=== PATIENT | male | born 1960 | race Caucasian/White ===

== ENCOUNTER → 2018-09-04 06:24 | Outpatient (CLI) | payer OTHER, SELFPAY ==
[2018-09-03 11:00] VITALS: BMI 31.6
--- NOTE | 2018-09-04 06:29 | ECHOCS_ITS ---
Reason For Study: NEAR SYNCOPE Procedure This was a 2D Doppler, Color Flow transthoracic echocardiogram. Exam performed in department. Left Ventricle Normal LV size. Left ventricular systolic function is normal. The estimated ejection fraction is 65 %. Stage 1 diastolic dysfunction. No regional wall motion abnormalities noted. Right Ventricle Normal RV size. Normal systolic function. Atria Normal left atrium. Normal right atrium. Mitral Valve Normal mitral valve. Tricuspid Valve Normal tricuspid valve. Mild tricuspid valve insufficiency. Aortic Valve Normal aortic valve. Pulmonic Valve Normal pulmonic valve. Great Vessels Normal aortic root. The pulmonary artery is normal size. Normal inferior vena cava. Pericardium/Pleural No pericardial effusion. Medication Diluted definity 5ml given slow IV push to enhance endocardial definition. MMode/2D Measurements & Calculations LVIDd: 4.7 cm IVSd: 0.95 cm Ao root diam: 3.6 cm LVIDs: 3.2 cm LVPWd: 0.99 cm RVDd: 4.0 cm FS: 32.2 % LAV(MOD-bp): 32.1 ml LVAd ap4: 28.5 cm2 SV(MOD-sp4): 64.0 ml LAV(MOD-bp) Indexed: 14.1 ml/m2 EDV(MOD-sp4): 97.8 ml LAV(MOD-sp2): 27.2 ml EDV(sp4-el): 97.7 ml LAV(MOD-sp4): 32.2 ml LVAs ap4: 16.0 cm2 ESV(MOD-sp4): 33.8 ml ESV(sp4-el): 36.1 ml EF(MOD-sp4): 65.5 % EF(sp4-el): 63.0 % SV(sp4-el): 61.6 ml LA A4 area: 14.2 cm2 LA dimension(2D): 3.4 cm RA A4 area: 16.0 cm2 Time Measurements MV dec time: 0.24 sec Doppler Measurements & Calculations MV E max martin: 52.5 cm/sec Lat Peak E' Martni: 6.0 cm/sec Med Peak E' Martin: 5.1 cm/sec MV A max martin: 67.4 cm/sec E/E' lat: 8.7 E/E' med: 10.3 MV E/A: 0.78 Ao V2 max: 114.7 cm/sec LV V1 max: 106.4 cm/sec PA V2 max: 103.4 cm/sec Ao max P.3 mmHg LV V1 max P.5 mmHg TR max martin: 207.9 cm/sec TR max P.3 mmHg Interpretation Summary Normal LV size. Left ventricular systolic function is normal. The estimated ejection fraction is 65 %. Stage 1 diastolic dysfunction. Contrast injection was performed. Ordering Physician: Jocelin Luo Referring Physician: Jocelin Luo Performed By: Natalia Swanson RDCS
--- NOTE | 2018-09-04 06:29 | CDU_ITS ---
Reason For Study: SYNCOPE Rt. Velocities/BP Lt. Velocities/BP Prox CCA 70.4/15.8 cm/sec. Prox CCA 83.8/20.5 cm/sec. Mid CCA 63.3/13.5 cm/sec. Mid CCA 63.9/22.3 cm/sec. Dist CCA 49.2/16.4 cm/sec. Dist CCA 50.4/15.2 cm/sec. Prox ICA 37.2/15.1 cm/sec. Prox ICA 51.9/23.3 cm/sec. Mid ICA 42.8/16.9 cm/sec. Mid ICA 53.8/21.4 cm/sec. Dist ICA 51.1/20.8 cm/sec. Dist ICA 54.8/22.9 cm/sec. Rt. ICA/CCA = .81. Lt. ICA/CCA = .86. Prox ECA 69.2/15.2 cm/sec. Prox ECA 66.3/12.9 cm/sec. Rt. Vert. 34.2/12.2 cm/sec. Lt. Vert. 45.7/17.6 cm/sec. Right Extracranial There is intimal thickening but no significant atherosclerotic plaque noted in the right common carotid artery. There is heterogeneous, irregular atherosclerotic plaque noted in the right internal carotid artery. There is no significant atherosclerotic plaque noted in the right external carotid artery. Antegrade flow is noted in the right vertebral artery. Left Extracranial There is intimal thickening but no significant atherosclerotic plaque noted in the left common carotid artery. There is intimal thickening but no significant atherosclerotic plaque noted in the left internal carotid artery. There is no significant atherosclerotic plaque noted in the left external carotid artery. Antegrade flow is noted in the left vertebral artery. Procedure Carotid Duplex 33288. Exam performed in department. Interpretation Summary Mild (<50%) stenosis right extracranial internal carotid. No significant atherosclerotic plaque or stenosis noted in the left internal carotid artery. Flow within the vertebral arteries is antegrade bilaterally. Ordering Physician: Jocelin Luo Referring Physician: Jocelin Luo Performed By: Jade Mclean RVT
--- NOTE | 2018-09-04 09:07 | STRESSREP ---
Stress Test Report Exercise myocardial perfusion stress test. 58-year-old man with a history of shortness of breath and preop evaluation. Stress protocol: Resting EKG demonstrates sinus rhythm with a rate of 71 bpm normal intervals are noted resting blood pressure 110/74 mmHg. The patient exercised according to regular Gallito protocol for total duration of 9 minutes the maximum heart rate attained was 151 bpm which was 93% of maximum predicted heart rate the maximum workload was 10.1 metabolic equivalents. Patient completed stage III of the Gallito protocol. At rest there were no ST or T wave changes noted suggest ischemia at peak exercise upsloping ST changes only were noted with no meet the criteria for ischemia. No clinical angina was noted. The test was terminated due to shortness of breath. The resting blood pressure 110/74 with a peak blood pressure 170/74. No clinical angina was noted rate pressure product was 25,100. Myocardial perfusion protocol. 15.1 mCi of technetium 99m sestamibi was injected at rest. The patient exercised according to regular Gallito protocol for total duration of 9 minutes at peak exercise 45.0 mCi of technetium 99m sestamibi was injected stress images were obtained stress and rest images were reconstructed and compared in the short axis vertical long horizontal long axis. Gated images were also obtained next Perfusion SPECT analysis: Review of the stress images demonstrate normal uptake of tracer noted in all areas of the myocardium. The resting images similarly demonstrate normal uptake of tracer noted in all areas of the myocardium. No areas of reversibility are noted suggest ischemia no previous infarct is discernible. Gated SPECT analysis: The gated ejection fraction is noted to be 63%. Conclusion: Normal exercise myocardial perfusion stress test at a high workload. Preserved ejection fraction. Excellent functional capacity.
== END ==
LOC: CVS 06:25
PROVIDERS: Family Provider Internal Medicine; PCP Internal Medicine; Referring Provider Internal Medicine; Visit Provider Internal Medicine
DX: R55 Syncope and collapse (principal); R06.02 Shortness of breath
CPT/HCPCS: 78452; 93017; 93306; 93880; A9500; Q9957; A4216; C8929

== ENCOUNTER → 2018-09-05 09:20 | Outpatient (CLI) | payer OTHER, SELFPAY ==
[2018-09-03 11:00] VITALS: BMI 31.6
--- NOTE | 2018-09-05 11:53 | EEG ---
- Electroencephalogram This is an 18 channel electroencephalogram performed utilizing the International 10-20 electrode placement protocol along with hyperventilation, photic stimulation and EKG reference leads on this 58-year-old male with a history of near syncope. Background activity is in the beta range symmetrically however this attenuates with eye-opening. Hyperventilation is performed for 2 minutes with good effort with no lateralizing or epileptiform changes. The patient did drowse during the recording without lateralizing or epileptiform changes. EKG remained normal sinus rhythm throughout the recording and photic stimulation generated a normal symmetric driving response in the posterior leads. Impression: Normal awake electroencephalogram.
== END ==
LOC: CT 09:21 → CVS 09:36
PROVIDERS: Family Provider Internal Medicine; PCP Internal Medicine; Referring Provider Internal Medicine; Visit Provider Internal Medicine
DX: R55 Syncope and collapse (principal)
CPT/HCPCS: 93225; 93226; 95819

== ENCOUNTER → 2018-09-09 16:52 | Outpatient (CLI) | payer OTHER, SELFPAY ==
[2018-09-03 11:00] VITALS: BMI 31.6
--- NOTE | 2018-09-09 16:58 | MRI_ITS ---
STUDY: MRI BRAIN WITH AND WITHOUT CONTRAST REASON FOR EXAM: Male, 58 years old. Near syncope TECHNIQUE: Standardized multiplanar fat and water weighted pulse sequences were obtained. Gadavist 10 IV was administered for the contrast portion of the examination. COMPARISON: None. FINDINGS: Normal size of the ventricles and extra-axial spaces for the patient's age. Normal white matter tracts of the supratentorial brain. Normal bilateral basal ganglia. Normal thalami. There is no extra-axial fluid accumulation. Normal flow voids within the major intracranial circulation suggesting patency by spin echo criteria. Normal venous enhancement. There is no enhancing intra-axial or extra-axial abnormality. Normal sella turcica, pituitary gland, infundibular stalk, optic chiasm and hypothalamus. Normal tectal plate and pineal gland. Normal midbrain, torrey and medulla. Normal cerebellum. Normal basal cisterns. Normal bilateral temporal bones. Normal bilateral internal auditory canals. No demonstrated orbital abnormality, within the constraints of a routine brain study. Normal visualized paranasal sinuses. Normal calvarium and skull base. Normal visualized soft tissue structures. Normal visualized upper cervical spine. MRI/Brain W/WO Contrast IMPRESSION: Normal unenhanced and enhanced MRI of the brain. Electronically Signed: Bandar Owens MD at 3:20 EST Tel , Service support ,
== END ==
LOC: MRI 16:53
PROVIDERS: Family Provider Internal Medicine; PCP Internal Medicine; Referring Provider Internal Medicine; Visit Provider Internal Medicine
DX: R55 Syncope and collapse (principal)
CPT/HCPCS: 70553; A9585

== ENCOUNTER 2018-09-30 05:50 | Day surgery (SDC) | payer OTHER, SELFPAY ==
[2018-09-19 08:44] VITALS: BMI 31.6
[2018-09-30 06:08] VITALS: BP 132/82; PULSE 73; RESP 16; TEMP 36.4; O2SAT 97; BMI 31.8
--- NOTE | 2018-09-30 07:00 | IMM_PTH ---
PATIENT: EDNA THOMAS LOC: [facility] U#:[id number] AGE/SX: 58/M ROOM: RE09/30/[address]: Dr. Wolfgang Thompson MD : 1960 BED: DIS: 09/30/2018 SPEC #: [id number] RECD: 09/30/18 12:24 STATUS: ANTONIO REJey #: [id number] ISAAC: 09/30/18 07:[address]: Wolfgang Thompson DEPT: IMMUNOHISTOCHEMISTRY RECD BY: Kori Nash ENTERED: 09/30/18 12:24 SP TYPE: IMMUNO OTHR DR: Dr. Jocelin Luo DO Tissues: A - Stomach, NOS Procedures: H Pylori (initial) PHYSICIAN & INSTITUTION [place] [address] SPECIMEN INFORMATION: Tissue Source: A - Antrum biopsy Clinical Info: Hiatal hernia Specimen Number: [id number] CPT code: 33160 METHODOLOGY: Deparaffinized sections of prefer/formalin-fixed tissue or PAP/DQ stained slides are incubated with monoclonal/polyclonal antibodies/oligonucleotide probes. Localization is made via biotin free immunoperoxidase method. Appropriate controls are performed and reacted as expected. Results on target cell population are indicated in the following table: RESULTS: ANTIBODY / CLONE RESULT Block A H Pylori (polyclonal) negative These tests were developed and their performance characteristics determined by [facility]. They may not have been cleared or approved by the U.S. Food and Drug Administration. The FDA has determined that such clearance or approval is not necessary. INTERPRETATION: A. Antrum, biopsy: Negative for Helicobacter pylori organisms. SJ:lisandra 10/01/18
--- NOTE | 2018-09-30 07:00 | EGD_PTH ---
PATIENT: EDNA THOMAS LOC: [facility] U#:[id number] AGE/SX: 58/M ROOM: RE09/30/[address]: Dr. Wolfgang Thompson MD : 1960 BED: DIS: 09/30/2018 SPEC #: [id number] RECD: 09/30/18 09:22 STATUS: ANTONIO AYESHA #: [id number] ISAAC: 09/30/18 07:[address]: Wolfgang Thompson DEPT: SURGICAL PATHOLOGY RECD BY: Narayan Matamoros ENTERED: 09/30/18 11:19 SP TYPE: EGD BIOPSY KALEB DR: Dr. Jocelin Luo DO Tissues: A - Gastric mucous membrane B - Esophageal mucous membrane Procedures: PAS Fungus (control) Special Stain Group I Surgery Specimen Level IV HEADER OPERATION: EGD (MOD) PRE-OP DIAGNOSIS: Hiatal hernia TISSUE SUBMITTED: A - Antrum biopsy for H. pylori and path, B - Distal esophagus biopsy MICROSCOPIC DIAGNOSIS A. Gastric antrum, biopsy: Reactive epithelial change with minimal chronic inflammation. See comment. B. Distal esophagus, biopsy: Consistent with reflux esophagitis. Focal ulceration with fibrinopurulent exudate. Negative for fungal organisms. See comment. AM:lisandra 10/01/18 COMMENT A. The results of immunohistochemistry for Helicobacter pylori will be reported separately ([id number]). B. PASF stain with matched control supports the above diagnosis. MICROSCOPIC DESCRIPTION Slides are reviewed. GROSS DESCRIPTION A - Received in fixative is one container labeled with the patient's name and designated antrum biopsy. The specimen consists of one irregular fragment of light garcia soft tissue that measures 0.3 x 0.3 x 0.1 cm. The specimen is totally submitted in one cassette. B - Received in fixative is one container labeled with the patient's name and designated distal esophagus biopsy. The specimen consists of multiple irregular fragments of light garcia soft tissue that in aggregate measure 2 x 0.4 x 0.1 cm. The specimen is totally submitted in one cassette. / SJ:lisandra 09/30/18 TC:3 CPT: 84691 x2, 89937
[2018-09-30 07:21] VITALS: BP 110/89; BP 112/80; BP 116/67; BP 132/82; BP 132/94; BP 146/93; PULSE 76; RESP 16; TEMP 36.4; O2SAT 95; O2SAT 97; O2SAT 98
--- NOTE | 2018-09-30 07:23 | OP.ENDO_ITS ---
09/30/2018 Jocelin Luo [address] [place] [address] Re : Upper GI endoscopy procedure for Frederic Hiteshharvinder Dear Dr. Luo This procedure was performed on Sunday, September 30, 2018. My impressions and recommendations are as follows: Impressions : - LA Grade A reflux esophagitis. Biopsied. - Medium-sized hiatal hernia. - Erythematous mucosa in the antrum. Biopsied. - Normal examined duodenum. Recommendations : - Discharge patient to home. - Resume previous diet. - Continue present medications. - Telephone my office for pathology results in 1 week. My findings are described in the full procedure note, which is enclosed. If I can be of further assistance, please feel free to contact me at Doctor phone number(s): Work: . Sincerely, Wolfgang Thompson MD 09/30/2018 7:22:55 AM This report has been signed electronically.
[2018-09-30 07:25] VITALS: BP 123/87; BP 132/82; PULSE 88; RESP 16; O2SAT 96
[2018-09-30 07:30] VITALS: BP 127/84; BP 132/82; PULSE 81; RESP 16; O2SAT 94
[2018-09-30 07:36] VITALS: BP 132/82; BP 132/91; PULSE 75; RESP 16; TEMP 36.7; O2SAT 96
[2018-09-30 07:55] VITALS: BP 132/82
== END 2018-09-30 07:56 | disposition home or self-care (01) ==
LOC: EN 05:50 → AC 05:51
PROVIDERS: Family Provider Internal Medicine; PCP Internal Medicine; Referring Provider Surgery; Visit Provider Surgery
PROC: (CPT 43239; principal; 2018-09-30 06:55)
DX: K29.50 Unspecified chronic gastritis without bleeding (principal); K44.9 Diaphragmatic hernia without obstruction or gangrene; K21.0 Gastro-esophageal reflux disease with esophagitis; Z79.82 Long term (current) use of aspirin; Z79.899 Other long term (current) drug therapy; E78.5 Hyperlipidemia, unspecified; I10 Essential (primary) hypertension; I25.10 Atherosclerotic heart disease of native coronary artery without angina pectoris; I25.2 Old myocardial infarction; E66.9 Obesity, unspecified; Z68.31 Body mass index [BMI] 31.0-31.9, adult; Z87.891 Personal history of nicotine dependence
CPT/HCPCS: 43239; 88305; 88312; 88342; 99152; 99153; J7120

== ENCOUNTER 2018-10-15 10:45 | Observation (INO) | payer OTHER, SELFPAY ==
[2018-09-19 08:44] VITALS: BMI 31.6
[2018-10-13 13:04] LABS: Anion Gap 4 (5-15); BUN 15 mg/dL (7-18); BUN/Creat Ratio 17.8 RATIO (10-20); Calcium,Total 8.8 mg/dL (8.5-10.1); Chloride 108 mmol/L (98-107); Creatinine, Serum 0.84 mg/dL (0.70-1.30); EST Glomerular Filtration Rate 99 mL/min (>60); Est Glom Filt Rate - Afr Amer 120 mL/min (>60); Glucose 97 mg/dL (74-106); Potassium 4.2 mmol/L (3.5-5.1); Sodium Level 137 mmol/L (136-145)
[2018-10-13 13:11] LABS: Hematocrit 41.5 % (40-54); Hemoglobin 13.6 g/dl (13.0-16.5); Mean Corp Hgb Conc 32.8 g/gl (32-36); Mean Corpuscular Hgb 26.8 pg (27.0-32.0); Mean Corpuscular Volume 81.7 fL (80-94); Mean Platelet Vol. 10.1 fl (6.2-12.0); Platelet Count 314 K/mm3 (150-450); RBC Distribution Width CV 14.1 % (11.6-14.6); RBC Distribution Width SD 41.7 fl (35.1-43.9); Red Blood Count 5.08 M/mm3 (4.6-6.2); White Blood Count 6.4 K/mm3 (4.4-11.0)
[2018-10-13 13:14] LABS: Scan Indicated on CBC? Y/N NO
[2018-10-15] VITALS (12 sets, daily range): BP systolic 103–140; BP diastolic 76–89; PULSE 67–82; RESP 16–20; TEMP 36–36.6; O2SAT 91–100; BMI 31.3
--- NOTE | 2018-10-15 06:52 | DCINST_ITS ---
Discharge Diet: Light diet - advance as tolerated - if you have questions about your diet instructions, please talk to you doctor., - - Today you may have liquids which will dissolve at body temperature. You may advance to pasta tomorrow and then after a couple days to flaky fish. Avoid beef/pork till after office followup please Discharge Activity: May Not Drive - for 1 week or while taking narcotic pain medicine. May shower in (days): 1 Lifting Restrictions: 10 pounds Call your doctor if your incision/area has: Continuous Slow Oozing, Sudden Increased Bleeding, Increased Pain/ Swelling, Increased Redness, Foul Smelling Discharge Call your doctor if you observe: Fever of 101 or Higher Suture Line Care: Avoid Pulling/Pushing, Avoid Pinching/Bending Additional Dressing/Incision Instructions:: Change or remove dressing in 3 days. Leave steri-strips in place for 1 week. Allergies/Adverse Reactions: Allergies No Known Allergies Allergy (Verified 10/08/18 09:10) Medications to take at Discharge aspirin 81 mg tablet,delayed release 81 mg PO DAILY 09/02/18 atorvastatin 80 mg tablet 80 mg PO DAILY 09/02/18 carvedilol 6.25 mg tablet 6.25 mg PO BID 09/02/18 cholecalciferol (vitamin D3) 1,000 unit capsule 1,000 unit PO DAILY 09/02/18 omega 6-mcv-nmb-fish oil 1,000 mg (120 mg-180 mg) capsule 2 cap PO DAILY cap 09/02/18 omeprazole 40 mg capsule,delayed release 40 mg PO DAILY 09/02/18 ramipril 2.5 mg capsule 2.5 mg PO DAILY 09/02/18 Primary Care Physician: Jocelin Luo DO [Primary Care Provider] - Test Results: Test results from this visit will be discussed in further detail at your follow- up appointment, if applicable. Please Follow Up With: Wolfgang Thompson MD - [phone] When: Call to make an appointment to be seen in about 10 days.
[2018-10-15] MEDS: Cefazolin 2 GM in 0.9% Normal Saline 100 ML IV (07:10)
--- NOTE | 2018-10-15 07:15 | HERN_PTH ---
PATIENT: EDNA THOMAS LOC: MS2 U#:[id number] AGE/SX: 58/M ROOM: [facility] RE10/15/[address]: Dr. Wolfgang Thompson MD : 1960 BED: 1 DIS: 10/16/2018 SPEC #: [id number] RECD: 10/15/18 11:15 STATUS: ANTONIO AYESHA #: [id number] ISAAC: 10/15/18 07:[address]: Wolfgang Thompson DEPT: SURGICAL PATHOLOGY RECD BY: Narayan Matamoros ENTERED: 10/15/18 13:06 SP TYPE: Hernia OTHR DR: Dr. Jocelin Luo DO Tissues: HERNIA Procedures: Surgery Specimen Level IV HEADER OPERATION: Laparoscopic hiatal hernia repair with Donovan fundoplication PRE-OP DIAGNOSIS: Hiatal hernia with GERD TISSUE SUBMITTED: Hernia sac and contents MICROSCOPIC DIAGNOSIS Hiatal hernia sac and contents, Donovan fundoplication: Pieces of fibroadipose tissue, clinically hiatal hernia. Eleven lymph nodes with reactive changes. JUAN DAVID:lisandra 10/16/18 MICROSCOPIC DESCRIPTION Slides are reviewed. GROSS DESCRIPTION Received in fixative is one container labeled with the patient's name and designated hernia sac and contents. The specimen consists of a piece of garcia-yellow adipose tissue measuring 6.5 x 3.5 x 1 cm. Sections do not reveal any mass lesion. Two nodules, possible lymph nodes, are identified measuring 0.3 to 0.5 cm in greatest dimension. Teaching Artist tissue is submitted in three cassettes. Cassette 3 contains the possible lymph nodes. / JUAN DAVID:lisandra 07/17/19 TC:5 CPT: 19581
[2018-10-15] MEDS: Bupivacaine Mpf 0.5% 30 ML VIAL (10:45)
--- NOTE | 2018-10-15 10:51 | PCM.OPRPT ---
Problem List (1) Hiatal hernia with GERD Status: Acute Report of Operation Date of Procedure: 10/15/18 Pre-Operative Diagnosis: Intractable gastroesophageal reflux disease with hiatal hernia Post-Operative Diagnosis: Same Surgery/Procedure Performed:: Laparoscopic repair of hiatal hernia with Donovan fundoplication Description of Surgical Findings:: Timeout and informed consent was obtained 50-year-old gent was at the operative placement table, general endotracheal intubation anesthesia Ancef 2 g given intravenous preoperatively he was placed in low lithotomy position the abdomen sterilely prepped draped Ioban drape was used over the drapes in place superior into the right of the umbilicus 5 mm trocar was inserted under direct Visiport technology the abdomen was insufflated CO2 to a pressure of 10 mm of pressure. Then tunneling trocar was placed in the left epigastrium and 2 more 5 mm ports in the left upper quadrant an additional 5 m port was placed in the xiphoid area middle lobe of the left liver and a Shadi retractor was placed. It was secured there with a Omni retractor. The abdomen was inspected large amount of fatty omentum where there is a significant amount of fibrofatty tissue the proximal portion of the stomach. Carefully using pneumonic scalpel the area of the pars flaccida mid epiphrenic ligament was then I dissected free I then addressed the left side of the diaphragm identified the left sam was able to better identify the left portion of the diaphragm then came up over the top. Dissected on the right sam leaving the peritoneum nicely intact both bruises. Tediously circumferential control was obtained of the esophagus there was a very large posterior fat pad and a significant amount of stomach. I had to carefully dissect this free and dissection was performed up into the mediastinum for a good 6-8 cm. I was able to place 1/2 inch Telma drain around the esophagus use that for retraction was able to further dissect free the posterior fat pad until both the left and right crura was nicely identified and had circumferential dissection. During this dissection I freed up the short gastrics and actually had to free those up for a distance to allow for better mobility of the fundus of the stomach. There was a significant amount of fabrication fatty tissue on the anterior portion that is been dissected free with the sac this was transected collected in a retrieval bag and exited. I then repaired the crura with 0 Ethibonds and Dacron pledgets. Good approximation was achieved. I then wrapped the fundus of the stomach secure the apical suture to the fundus of the stomach the epiphrenic ligament the anterior surface of the esophagus and the wrap portion of fundus. Then Dr. Henning assisted me with an upper endoscopy this demonstrated that the EG junction was good position the wrap appeared to be nicely intact there appeared to be relative ease in advancing the scope with no tension on the scope. The wrap portion of the wound was inspected laparoscopically was noted to be completely intact liver a little bit compressible retracted but viable a very superior aspect of the spleen appeared to be partially devascularized from the mobilization of the short gastrics but the vast majority of the spleen intact. There is been very little blood loss. The excess fluid in the abdomen was accessed was aspirated free. A 0 Vicryl in a GraNee suture was used to repair the tendon or trocar site in the left epigastrium. Trochars removed under visualization the abdomen was allowed to deflate the CO2 mid skin edges proximal interrupted 4 Monocryl subdermal stitches. Steri-Strips Telfa and OpSite dressings applied. Sponge and instrument and needle counts reported the surgery were correct. Specimen includes the hernia sac and anterior fat pad. Drains none. Blood loss minimal. Wolfgang Thompson M.D., F.A.C.S. Type of Anesthesia:: General Anesthesiologist: Carolina Bartholomew
[2018-10-15] MEDS: Morphine 4 MG/ML Syringe IV ×3 (13:02→19:57)
--- NOTE | 2018-10-15 13:35 | CPS ---
supervisor scenic arts reminded Simple mask must run at minimum of 6 l/m
[2018-10-15] MEDS: Lactated Ringers 1,000 ML 70 ML IV (17:20)
--- NOTE | 2018-10-15 17:49 | PCM.PN.BLA ---
Progress Note Feels great, no complaints. Thirsty Voided Will start clears
[2018-10-15] MEDS: Carvedilol 6.25 MG Tablet PO (21:15)
[2018-10-15] MEDS: Atorvastatin Calcium 80 MG Tablet PO (21:15)
[2018-10-15] MEDS: HYDROcodone Bitartrate/Apap 5/325 Tablet PO (22:25)
[2018-10-16] MEDS: Ketorolac 15 MG/ML Vial IV (01:49)
[2018-10-16 01:58] VITALS: BP 128/72; PULSE 70; RESP 18; TEMP 36.7; O2SAT 95
[2018-10-16 05:48] VITALS: BP 121/66; PULSE 73; RESP 18; TEMP 36.6; O2SAT 95
--- NOTE | 2018-10-16 05:49 | PCM.PN.SRG ---
Subjective: Pt feels very good. Clears without difficulty - Physical Exam Abdomen: Bowel Sounds Present, Soft, Non Tender Vital Signs Temp Pulse Resp BP Pulse Ox 98.0 F 70 18 128/72 H 95 10/16/18 01:58 10/16/18 01:58 10/16/18 01:58 10/16/18 01:58 10/16/18 01:58 Oxygen Flow Rate (L/min) 2 Oxygen Delivery Method Room Air Weight: 231 lb 0.711 oz Body Mass Index (BMI) 31.3 Intake and Output for Last 24 Hours 10/14/18 10/15/18 10/16/18 23:59 23:59 23:59 Intake Total 1875 / 1875 240 / 240 Balance 1875 / 1875 240 / 240 Medical Necessity - Tobacco Use Smoking Status: Former smoker Tobacco Use: Non-smoker Assessment/Plan All Active Problems (Last Reviewed 09/19/18 @ 08:43 by Alice Adams) Preop cardiovascular exam (Acute) History of coronary artery stent placement (Resolved 01/2017) Hiatal hernia with GERD (Acute) Ready for discharge
[2018-10-16] MEDS: HYDROcodone Bitartrate/Apap 5/325 Tablet PO (05:54)
== END 2018-10-16 08:08 | disposition home or self-care (01) ==
LOC: SDC 11:28
PROVIDERS: Admitting Provider Surgery; Family Provider Internal Medicine; PCP Internal Medicine; Referring Provider Surgery; Visit Provider Surgery
PROC: (CPT 43325; principal; 2018-10-15 06:55)
DX: K21.9 Gastro-esophageal reflux disease without esophagitis (principal); K44.9 Diaphragmatic hernia without obstruction or gangrene; I10 Essential (primary) hypertension; I25.2 Old myocardial infarction; E78.5 Hyperlipidemia, unspecified; E66.9 Obesity, unspecified; I25.10 Atherosclerotic heart disease of native coronary artery without angina pectoris; Z87.891 Personal history of nicotine dependence; Z79.82 Long term (current) use of aspirin; Z79.899 Other long term (current) drug therapy; Z95.5 Presence of coronary angioplasty implant and graft; Z68.31 Body mass index [BMI] 31.0-31.9, adult; Z71.3 Dietary counseling and surveillance
CPT/HCPCS: 00790; 43280; 36415; 80048; 85027; 88302; 88305; 96374; 96375; 96376; 99218; J7120; C1768; G0378; G0379; J2405

== ENCOUNTER → 2018-10-27 | Outpatient (CLI) | payer OTHER, SELFPAY ==
[2018-10-15 05:51] VITALS: BMI 31.3
--- NOTE | 2018-10-27 15:12 | RAD_ITS ---
STUDY: X-RAY CHEST REASON FOR EXAM: Male, 58 years old. Cough following recent surgery. TECHNIQUE: PA and lateral views of the chest. COMPARISON: None. FINDINGS: Mild increased markings at the lung bases worse on the right side suggestive of a bibasilar atelectasis and/or early infiltrate. There is also evidence of increased markings in the right upper lobe. There is no demonstrated pleural abnormality. Normal size heart. Normal mediastinum and luis. Normal visualized pulmonary arteries. Normal visualized aortic arch and descending thoracic aorta. There are degenerative changes of the visualized thoracic spine. Normal visualized ribs, clavicles, and shoulders. There is no demonstrated abnormality of the visualized soft tissue structures of the upper abdomen. RAD/Chest PA and Lateral IMPRESSION: Increased markings at the lung bases as well as in the right upper lobe. Findings suggestive of either atelectasis and/or early infiltrate. Follow-up is recommended. Electronically Signed: Jeovanny Swan, at 15:58 EDT , Service support ,
== END | disposition home or self-care (01) ==
LOC: RAD 15:10
PROVIDERS: Family Provider Internal Medicine; PCP Internal Medicine; Referring Provider Surgery; Visit Provider Surgery
DX: R05 Cough (principal)
CPT/HCPCS: 71046

== ENCOUNTER → 2020-02-05 | Outpatient (CLI) | payer OTHER, SELFPAY ==
[2019-12-15 09:38] VITALS: BMI 31.1
[2020-02-05 10:47] LABS: Hematocrit 46.5 % (40-54); Hemoglobin 15.5 g/dL (13.0-16.5); Mean Corp Hgb Conc 33.3 g/dL (32-36); Mean Corpuscular Volume 90.1 fL (80-94); Mean Platelet Vol. 10.2 fl (6.2-12.0); POSITIVE COUNT YES; POSITIVE DIFFERENTIAL YES; POSITIVE MORPHOLOGY YES; Platelet Count 200 K/mm3 (150-450); RBC Distribution Width CV 13.7 % (11.6-14.6); RBC Distribution Width SD 45.1 fl (35.1-43.9); Red Blood Count 5.16 M/mm3 (4.6-6.2); White Blood Count 17.4 K/mm3 (4.4-11.0)
[2020-02-05 10:50] LABS: Differential Indicated MANUAL DIFF
[2020-02-05 11:53] LABS: Metamyelocyte 1 % (0-1); Myelocyte 2 (0-0); Neutrophil-Band 1 % (0-5); Neutrophil-Segmented 60 % (47-70); Total Cells Counted 100 (MANUAL DIFF)
[2020-02-05 11:54] LABS: Eosinophil 6 % (0-5); Lymphocyte 25 % (19-41); Monocyte 4 % (0-10); Promyelocyte 1 (0-0)
[2020-02-05 11:56] LABS: Platelet Estimate ADEQUATE (ADEQ); Red Cell Morphology NORM C+C NORMAL (NORM C&C)
[2020-02-05 11:58] LABS: Absolute Lymphocyte Count 4.34 X10^3/uL (0.83-4.51); Absolute Neutrophil Count 10.6 X10^3/uL (2.0-7.7)
[2020-02-08 12:15] LABS: Pathologist Review Reviewed
== END | disposition home or self-care (01) ==
PROVIDERS: PCP Internal Medicine; Referring Provider Internal Medicine; Visit Provider Internal Medicine
DX: D72.829 Elevated white blood cell count, unspecified (principal)
CPT/HCPCS: 36415; 85025

== ENCOUNTER → 2020-02-11 | Outpatient (CLI) | payer OTHER, SELFPAY ==
[2019-12-15 09:38] VITALS: BMI 31.1
--- NOTE | 2020-02-11 10:06 | RAD_ITS ---
STUDY: X-RAY RIGHT FOOT, GREAT TOE REASON FOR EXAM: Male, 59 years old. FX GREAT TOE, TO RULE OUT OSTEO INFECTION TECHNIQUE: 4 view(s) of the toe were obtained. COMPARISON: None. FINDINGS: There is an acute minimally displaced evulsion fracture in the distal phalanx of the right toe with soft tissue swelling. Joint spaces well-preserved, no erosive osseous lesion or subcutaneous emphysema. No other demonstrated fracture. RAD/Toe(s) Min 2 Views IMPRESSION: Acute minimally displaced avulsion type fracture in the distal medial aspect of the distal phalanx of the great toe with soft tissue swelling Electronically Signed: Asaf Wagner MD at 10:47 EDT , Service support ,
== END | disposition home or self-care (01) ==
LOC: HPRAD 10:01
PROVIDERS: PCP Internal Medicine; Referring Provider Internal Medicine; Visit Provider Internal Medicine
DX: S92.401B Displaced unspecified fracture of right great toe, initial encounter for open fracture (principal)
CPT/HCPCS: 73660

== ENCOUNTER → 2020-04-13 08:55 | Outpatient (CLI) | payer OTHER, SELFPAY ==
[2020-03-14 12:55] VITALS: BMI 32.4
[2020-04-13] VITALS (9 sets, daily range): BP systolic 110–136; BP diastolic 58–91; PULSE 17–81; RESP 14–23; TEMP 36.8; O2SAT 93–97; BMI 32.8
--- NOTE | 2020-04-13 | BMB_PTH ---
PATIENT: EDNA THOMAS LOC: CT U#:[id number] AGE/SX: 64/M ROOM: RE04/13/[address]: Dr. Sawyer Delgado MD : [id number] BED: DIS: SPEC #: [id number] RECD: 04/13/20 11:10 STATUS: ANTONIO REJey #: [id number] ISAAC: 04/13/20 00:[address]: Sawyer Delgado DEPT: BONE MARROW RECD BY: Brayan Gonzalez ENTERED: 04/13/20 11:14 SP TYPE: BMB KALEB DR: Dr. Jocelin Luo DO Tissues: A - Bone marrow, NOS B - Bone marrow, NOS C - Bone marrow, NOS Procedures: Bone Marrow Aspiration Bone Marrow Core Biopsy Iron Stain Bone Marrow HEADER OPERATION: Bone marrow biopsy and aspiration PRE-OP DIAGNOSIS: CML TISSUE SUBMITTED: A - Core, B - Clot, C - Smears, and send outs (flow, cytogenetics and CML) BONE MARROW DIAGNOSIS Bone marrow biopsy, clot and aspiration (specimens A-C): Hypercellular bone marrow. No stainable iron identified. No evidence of lymphoproliferative disorder. See comment. AM:lisandra 04/19/20 COMMENT Flow cytometry analysis reveals no increased blasts population. However, myeloid elements exhibit aberrant expression of CD56 and show left shift with down-regulation of CD10 and CD16. The findings are compatible with an underlying primary myeloid neoplasm. The flow cytometry analysis report from [facility] is reviewable in the patient's EMR. Results from additional studies will be reported as an addendum. Case has been reviewed in consultation with Dr. Tinoco who concurs with the above diagnosis. IDC:SJ BONE MARROW STUDY Slides are reviewed. CBC DATE: 04/13/20 WBC 22.5; RBC 5.33; HGB 15.8; HCT 48.5; MCV 91.0; RDW 48.2; PLTS 206,000 SEGS 54%; LYMPHS 23%; MONOS 11%; EOS 2%; BASOS 0% PERIPHERAL SMEAR: Submitted. RBC: Normochromic, normomorphic WBC: Neutrophilic leukocytosis with slight left shift. PLTS: Normomorphic BONE MARROW ASPIRATE DIFFERENTIAL: 200 cell count. Blasts % (normal 0-2): 2 Promyelocytes % (normal 1-5): 5 Myelocytes and metamyelocytes % (normal 17-41): 38 Bands and Segs % (normal 15-32): 26 Eos % (normal 1-6): 2 Basos % (normal 0-1): 0 Monocytes % (normal 0-4): 2 Erythroid Precursors % (normal 17-35): 18 Lymphocytes % (normal 7-13): 7 Plasma Cells % (normal 0-2): 0 ASPIRATE FINDINGS: Site: Not specified Paucispicular Cellular M/E ratio: Within normal limits (Normal 1.5 - 4.0) Megakaryocytes: Adequate Erythropoiesis: Progressive Granulopoiesis: Normoblastic CORE BIOPSY FINDINGS: Site: Not specified Adequacy: No bone present Cellularity %: Not applicable M/E ratio: Not applicable Blood Only rare marrow cell noted. ASPIRATE CLOT FINDINGS: Site: Not specified Marrow Particles: Many Cellularity %: 80% M/E ratio: Within normal limits Megakaryocytes: Adequate Granuloma(s): 0 Lymphoid aggregate(s): 0 Atypical infiltrate(s): 0 SPECIAL STAINS (with matched controls): Iron: Stainable iron not present Reticulin: Within normal limits PAS: Highlights myeloid elements and megakaryocytes. BONE MARROW GROSS A - Received is a container labeled with the patient's name and designated bone marrow. The specimen consists of 12 cc of red-garcia fluid for cell block preparation. No bone is identified. B - Received labeled with the patient's name and designated bone marrow is a specimen that consists of approximately 12 cc of bloody fluid that on filtration yields multiple minute fragments of blood clots measuring in aggregate 3 x 2.5 x 0.3 cm. The specimen is totally submitted in one cassette. C - Also received are 15 unstained and 1 peripheral stained slides. The unstained slides are submitted for appropriate staining. Also received are two green top tubes which are sent to our reference lab for flow, cytogenetics and CML. / JUAN DAVID:lisandra 04/13/20 TC:? CPT: 24689, 52349, 86444 x2, 49013 x3 ADDENDUM ADDENDUM ADDENDUM ADDENDUM ADDENDUM ADDENDUM ADDENDUM 04/20/2020 09:36 ADDENDUM 04/21/2020 11:06 ADDENDUM 08/08/2022 15:48 ADDENDUM 04/20/2020 09:36 ADDENDUM 04/20/2020 09:36 ADDENDUM 04/20/2020 09:36 ADDENDUM 04/20/2020 09:36 CYTOGENETICS REPORT FROM [facility] INTERPRETATION: Abnormal male karyotype was observed in twenty metaphases analyzed. 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] Please see complete report in e-chart or EMR for further details FISH BCR/ABL1 REPORT FROM [facility] INTERPRETATION: BCR/ABL gene rearrangement is detected. RESULTS: BCR/ABL1 Normal Nuclei Positive Nuclei with Dual Fusion 3.33% 96.67% Please see complete report in e-chart or EMR for further details This addendum is added to incorporate an outside pathology consultation report. The case was examined at [facility] (#[id number]) and the following diagnosis was rendered. Bone marrow, clot section, aspirate and peripheral blood: Chronic myeloid leukemia, chronic phase, in a hypercellular marrow (90%). Please see complete above mentioned consultation report in EMR
[2020-04-13 09:01] LABS: Bone Marrow Aspiraton SEE PATHOLOGY REPORT
[2020-04-13 09:18] LABS: Hematocrit 48.5 % (40-54); Hemoglobin 15.8 g/dL (13.0-16.5); Mean Corp Hgb Conc 32.6 g/dL (32-36); Mean Corpuscular Hgb 29.6 pg (27.0-32.0); Mean Platelet Vol. 9.8 fl (6.2-12.0); POSITIVE COUNT YES; POSITIVE DIFFERENTIAL YES; POSITIVE MORPHOLOGY YES; Platelet Count 206 K/mm3 (150-450); RBC Distribution Width CV 14.2 % (11.6-14.6); RBC Distribution Width SD 48.2 fl (35.1-43.9); Red Blood Count 5.33 M/mm3 (4.6-6.2); White Blood Count 22.5 K/mm3 (4.4-11.0)
[2020-04-13 09:20] LABS: Differential Indicated MANUAL DIFF
[2020-04-13 09:38] LABS: Partial Thromboplast Time 31.1 Seconds (24.1-36.2)
--- NOTE | 2020-04-13 09:40 | US_ITS ---
STUDY: ABDOMINAL ULTRASOUND - left UPPER QUADRANT REASON FOR VISIT: Male, 59 years old EVALUATE SPLEEN SIZE CHRONIC MYELOID LEUKEMIA TECHNIQUE: Ultrasound evaluation of the right upper quadrant was performed with real-time and static juan-scale imaging. TECHNICAL QUALITY: Adequate. COMPARISON: None. FINDINGS: Spleen: There is evidence of splenomegaly. The spleen measures 13.4 cm x 6.9 cm x 5.2 cm. It is of homogeneous echotexture. Left Kidney: Normal size of the left kidney. The left kidney measures 12.1 cm x 5.8 cm x 5.5 cm. Normal renal cortex. The left cortex measures 1.6 cm. There is no demonstrated renal mass or cyst. There is no left hydronephrosis. US/Spleen IMPRESSION: Splenomegaly. The spleen measures 13.4 cm x 6.9 cm x 5.2 cm. It is of homogeneous echotexture. Electronically Signed: Jeovanny Swan, at 12:17 EDT , Service support ,
[2020-04-13 09:56] LABS: Eosinophil 2 % (0-5); Lymphocyte 23 % (19-41); Metamyelocyte 2 % (0-1); Monocyte 11 % (0-10); Myelocyte 2 (0-0); Neutrophil-Band 6 % (0-5); Platelet Estimate ADEQUATE (ADEQ); Red Cell Morphology NORM C+C NORMAL (NORM C&C); Total Cells Counted 100 (MANUAL DIFF)
[2020-04-13 09:57] LABS: Neutrophil-Segmented 54 % (47-70)
[2020-04-13 09:59] LABS: Absolute Lymphocyte Count 5.18 X10^3/uL (0.83-4.51); Absolute Neutrophil Count 13.5 X10^3/uL (2.0-7.7)
--- NOTE | 2020-04-13 10:00 | CT_ITS ---
PROCEDURE: CT GUIDED BONE marrow biopsy and bone marrow aspirate. DATE: 04/13/2020. INDICATION: Male, 59 years old. The patient has a history of chronic myeloid leukemia. PHYSICIAN: Jeovanny Swan M.D. RADIATION DOSAGE (If Supplied By Facility): CTDIvol = ( 15.5 ) mGy, DLP = ( 295.38 ) mGycm. Individualized dose optimization techniques were utilized. PROCEDURE: The risks, benefits, and alternatives to the procedure were explained to the patient. The specific risk of hemorrhage requiring further treatment or intervention was detailed and accepted. Follow-up instructions were discussed with the patient as well. Written informed consent was obtained. The patient was brought into the CT suite and placed in the prone position. . An appropriate entry site was identified. The overlying skin was prepped and draped in the usual sterile fashion. 1% lidocaine was administered subcutaneously for local anesthesia. Conscious sedation was performed. The patient received 3 mg of VERSED and 100 mcg of FENTANYL intravenously. The patient was monitored by the department nurse. Under CT guidance, a bone marrow biopsy and bone marrow aspirates of the posterior aspect of the right iliac bone were performed utilizing an 11-gauge bone marrow biopsy kit. The specimens were then placed in the appropriate fluid and transported to the laboratory for analysis. Hemostasis was obtained. The patient tolerated the procedure well without immediate complications. CT/Biopsy/Inj or Needle Placement IMPRESSION: Successful CT guided bone marrow biopsy and aspiration of the posterior aspect of the right iliac bone, as described above. Conscious sedation protocol was followed. The patient tolerated the procedure well. Electronically Signed: Jeovanny Swan, at 10:51 EDT , Service support ,
[2020-04-13] MEDS: Midazolam 2 MG/2 ML Syringe IV ×2 (10:09→10:22)
[2020-04-13] MEDS: fentaNYL 100 MCG/2 ML Ampul IV ×2 (10:10→10:55)
[2020-04-13] MEDS: 0.9% Saline Lock 10 ML Syringe IV (10:11)
[2020-04-13 14:17] LABS: Pathologist Review Reviewed
[2020-04-14 16:08] LABS: HEPATITIS B SURFACE AG Negative (Negative); Hepatitis B Core AB IgM Negative (Negative); Hepatitis B Core Ab Total Negative (Negative); Hepatitis Be Ab Negative (Negative); Hepatitis Be Ag Negative (Negative)
[2020-04-15 04:43] LABS: Hepatitis B Surface Antibody 0 (.)
== END ==
PROVIDERS: PCP Internal Medicine; Referring Provider Internal Medicine Hematology & Oncology; Visit Provider Internal Medicine Hematology & Oncology
DX: C92.10 Chronic myeloid leukemia, BCR/ABL-positive, not having achieved remission (principal)
CPT/HCPCS: 38221; 36415; 76705; 77012; 85025; 85610; 85730; 86705; 86707; 87340; 87350; 88305; 88311; 88313; 99155; 99156; J7040; A4216

== ENCOUNTER → 2020-04-20 | Outpatient (CLI) | payer OTHER, SELFPAY ==
[2020-03-14 12:55] VITALS: BMI 32.4
[2020-04-13 09:23] VITALS: BMI 32.8
--- NOTE | 2020-04-20 08:24 | ECHOCSONC_ITS ---
Reason For Study: Pre Chemo Procedure This was a 2D Doppler, Color Flow transthoracic echocardiogram. Myocardial strain analysis was performed in this exam to aid in the assessment of cardiac function. The study was technically difficult. Contrast injection was performed. Exam performed in department. Left Ventricle Normal LV size. Left ventricular systolic function is normal. The estimated ejection fraction is 55 %. The global longitudinal strain is normal. The global longitudinal strain = -18.1 % (normal). No regional wall motion abnormalities noted. Right Ventricle Normal RV size. Normal systolic function. Atria Normal left atrium. Normal right atrium. Mitral Valve Normal mitral valve. Mild (1+) eccentric mitral valve insufficiency. Tricuspid Valve Normal tricuspid valve. Mild (1+) tricuspid valve insufficiency. Pulmonary artery systolic pressure is 26 mmHg. Aortic Valve Normal aortic valve. Trisinus/trileaflet aortic valve. Pulmonic Valve The pulmonic valve is not well visualized. Great Vessels Mildly dilated aortic root. The pulmonary artery is normal size. Normal inferior vena cava. Pericardium/Pleural No pericardial effusion. Medication 22 gauge I.V. with prn adaptor inserted into right arm. Diluted definity 4ml given slow IV push to enhance endocardial definition. MMode/2D Measurements & Calculations LVIDd: 5.1 cm IVSd: 0.88 cm Ao root diam: 4.0 cm LVIDs: 3.1 cm LVPWd: 1.2 cm LA dimension: 3.7 cm RVDd: 4.0 cm FS: 39.6 % LAV(MOD-bp): 56.3 ml LVAd ap4: 29.0 cm2 SV(MOD-sp4): 58.4 ml LAV(MOD-bp) Indexed: 24.4 ml/m2 EDV(MOD-sp4): 98.3 ml LAV(MOD-sp2): 49.1 ml EDV(sp4-el): 100.3 ml LAV(MOD-sp4): 57.3 ml LVAs ap4: 17.4 cm2 ESV(MOD-sp4): 40.0 ml ESV(sp4-el): 41.2 ml EF(MOD-sp4): 59.3 % EF(sp4-el): 58.9 % SV(sp4-el): 59.1 ml LA A4 area: 19.7 cm2 RA A4 area: 18.6 cm2 Time Measurements MV dec time: 0.34 sec Doppler Measurements & Calculations MV E max martin: 55.8 cm/sec Lat Peak E' Martin: 6.5 cm/sec Med Peak E' Martin: 6.9 cm/sec MV A max martin: 64.2 cm/sec E/E' lat: 8.6 E/E' med: 8.1 MV E/A: 0.87 MV V2 max: 64.9 cm/sec MV P1/2t max martin: 63.0 cm/sec Ao V2 max: 107.8 cm/sec MV max P.7 mmHg MV P1/2t: 103.3 msec Ao max P.7 mmHg MV V2 mean: 41.7 cm/sec MV mean P.80 mmHg MV dec slope: 178.7 cm/sec2 MV V2 VTI: 19.4 cm MVA(P1/2t): 2.1 cm2 LV V1 max: 101.4 cm/sec PA V2 max: 100.2 cm/sec TR max martin: 236.0 cm/sec LV V1 max P.1 mmHg TR max P.3 mmHg Interpretation Summary Normal LV size. Left ventricular systolic function is normal. The estimated ejection fraction is 55 %. The global longitudinal strain is normal. The global longitudinal strain = -18.1 % (normal). Contrast injection was performed. Ordering Physician: Sawyer Delgado Referring Physician: Jocelin Luo M.D. Performed By: Hung Leger RCS
--- NOTE | 2020-04-20 08:24 | EKG12_ITS ---
Test Reason : MEDICATION Blood Pressure : / mmHG Vent. Rate : 076 BPM Atrial Rate : 076 BPM P-R Int : 136 ms QRS Dur : 088 ms QT Int : 392 ms P-R-T Axes : 022 -01 023 degrees QTc Int : 441 ms Normal sinus rhythm Normal ECG Confirmed by ARIELA HICKS, MICHAEL ([id number]), sound editor CASEY LESLIE ([id number]) on 04/21/2020 8:14:54 AM Referred By: Sawyer Delgado Confirmed By:MICHAEL TITUS MD
== END | disposition home or self-care (01) ==
LOC: US 08:24
PROVIDERS: PCP Internal Medicine; Referring Provider Internal Medicine Hematology & Oncology; Visit Provider Internal Medicine Hematology & Oncology
DX: C92.10 Chronic myeloid leukemia, BCR/ABL-positive, not having achieved remission (principal); Z79.899 Other long term (current) drug therapy
CPT/HCPCS: 93005; 93306; 93356; Q9957; A4216; C8929

== ENCOUNTER → 2020-05-17 | Outpatient (CLI) | payer OTHER, SELFPAY ==
[2020-04-13 09:23] VITALS: BMI 32.8
--- NOTE | 2020-05-17 14:15 | CT_ITS ---
STUDY: LOW DOSE CT LUNG CANCER SCREENING REASON FOR EXAM: Male, 59 years old. LUNG SCREEN, /2 PPD X 30 YRS. RADIATION DOSAGE (If Supplied By Facility): CTDIvol = ( 4.02 ) mGy, DLP = ( 130.89 ) mGycm TECHNIQUE: No contrast was administered. Low dose technique was utilized (average mAS-38 and kVp 120). 1.25 mm axial source images with a slice interval of 1.25-mm were reconstructed in lung windows. 2.5 mm axial source images with a slice interval of 2.5-mm were reconstructed in lung windows. 5.0 mm axial source images with a slice interval of 5.0-mm were reconstructed in soft tissue windows. Nodule measured using lung windows on PACS and/or independent workstation with automated measurement of minimum and maximum diameter. Nodule measurement reported as average diameter rounded to the nearest whole number. Growth is defined as an increase ins size of greater than 1.5 mm. COMPARISON: None. NODULES: No suspicious nodules are seen. Emphysema: Mild increased markings at the lung apices suggestive of scarring. Endobronchial lesion: None. Aorta: Atherosclerotic plaque calcification involving the aortic arch. Coronary arteries: Coronary artery calcification. Prior coronary artery stenting. Heart: Minimal pericardial thickening. Mediastinal nodes: Small benign-appearing mediastinal lymph nodes. Other chest and abdominal findings: CT/Low Dose CT Lung Screening IMPRESSION: Lung-RADS category 2 - Continue annual screening with LDCT in 12 months. IMPORTANT NOTES FOR USE: ACR Lung-RADS Version 1.0 Assessment Categories Release Date: November 16, 2013 Category: Coded 0-4 bases on nodule(s) with highest degree of suspicion. Negative screen is defined as categories 1 and 2; a positive screen is defined as categories 3 and 4. Category 3 and 4A nodules that are unchanged on interval CT should be coded as category 2, and individuals returned to screening in 12 months. Category 4X: Category 3 or 4 nodules with additional imaging findings that increase the suspicion of lung cancer, such as spiculation, GGN that doubles in size in 1 year, enlarged lymph notes, etc. Category Modifiers: S (significant finding unrelated to lung cancer) and C (prior history of treated lung cancer) may be added to the 0-4 Lung-RADS Electronically Signed: Jeovanny Swan, at 15:38 EDT , Service support ,
== END | disposition home or self-care (01) ==
LOC: CT 14:15
PROVIDERS: PCP Internal Medicine; Referring Provider Nurse Practitioner Family; Visit Provider Nurse Practitioner Family
DX: F17.200 Nicotine dependence, unspecified, uncomplicated (principal); Z12.2 Encounter for screening for malignant neoplasm of respiratory organs
CPT/HCPCS: G0297

== ENCOUNTER → 2020-05-20 | Outpatient (CLI) | payer OTHER, SELFPAY ==
[2020-05-20 09:31] VITALS: BMI 32.0
[2020-05-20 13:56] LABS: AST(SGOT) 41 U/L (15-37); Alanine Aminotransfer ALT/SGPT 80 U/L (16-61); Albumin, Serum 4.2 g/dL (3.2-5.0); Alkaline Phosphatase 91 U/L (45-117); Bilirubin, Direct 0.21 mg/dL (0.00-0.30); Cholesterol 115 mg/dL (200); Globulin 3.7 g/dL (2.2-4.2); High Density Lipoprotein 51 mg/dL; Protein, Total 7.9 g/dL (6.4-8.2); Triglycerides 99 mg/dL; Very Low Density Lipoprotein 20 mg/dL (5-40)
== END | disposition home or self-care (01) ==
LOC: LAB 12:29
PROVIDERS: PCP Internal Medicine; Referring Provider Internal Medicine Cardiovascular Disease; Visit Provider Internal Medicine Cardiovascular Disease
DX: E78.5 Hyperlipidemia, unspecified (principal); I25.10 Atherosclerotic heart disease of native coronary artery without angina pectoris
CPT/HCPCS: 36415; 80061; 80076

== ENCOUNTER → 2020-12-28 06:22 | Outpatient (CLI) | payer OTHER, SELFPAY ==
[2020-12-16 10:23] VITALS: BMI 32.1
[2020-12-28 07:28] LABS: AST(SGOT) 25 U/L (15-37); Alanine Aminotransfer ALT/SGPT 36 U/L (16-61); Albumin, Serum 4.1 g/dL (3.2-5.0); Alkaline Phosphatase 63 U/L (45-117); Bilirubin, Direct 0.13 mg/dL (0.00-0.30); Cholesterol 132 mg/dL (200); Globulin 3.5 g/dL (2.2-4.2); High Density Lipoprotein 47 mg/dL; Protein, Total 7.6 g/dL (6.4-8.2); Triglycerides 159 mg/dL; Very Low Density Lipoprotein 32 mg/dL (5-40)
--- NOTE | 2020-12-28 17:33 | STRESSREP_ITS ---
Stress Test Report Exercise myocardial perfusion stress test. 60-year-old man with a history of previous anterior myocardial infarction and chronic myeloid leukemia. Stress protocol: Resting EKG demonstrates normal sinus rhythm with a rate of 65 bpm normal intervals are noted. Resting blood pressure is 102/72 mmHg. The patient exercised according to regular Gallito protocol for total duration of 9 minutes and 30 seconds. The maximum heart rate attained was 141 bpm which was 88% of maximum predicted heart rate the maximum workload was 10.7 metabolic equiv alents. At rest there were no ST or T wave changes noted to suggest ischemia and at peak exercise upsloping ST changes were noted with did not meet the criteria for ischemia. No clinical angina was noted the test was terminated due to leg fatigue. The peak blood pressure was 160/68 mmHg with a rate pressure product of 21,700. Myocardial perfusion protocol. 14.7 mCi of technetium 99m sestamibi was injected at rest. The patient exercised according to regular Gallito protocol for total duration of 9-1/2 minutes. The maximum heart rate attained was 141 bpm. At peak exercise 44.6 mCi of technetium 99m sestamibi was injected at rest. Stress and rest images were reconstructed and compared in the short axis vertical long and horizontal long axis. Gated images were also obtained Perfusion SPECT analysis: Review of the stress images demonstrate normal cardiac silhouette size. There is minimal perfusion reduction noted in the distal anterior wall towards the apex noted on the stress images. The resting images demonstrate minimal perfusion defect, with no significant improvement to suggest ischemia. Previous small infarct in this area cannot be completely excluded. The rest of the chavez appear to be normally perfused. Gated SPECT analysis: The gated ejection fraction is 65%. Conclusion: Exercise myocardial perfusion stress test with no obvious ischemia noted. Previous small anterior infarct cannot be excluded. Preserved ejection fraction. Good functional capacity.
== END ==
PROVIDERS: PCP Internal Medicine; Referring Provider Internal Medicine Cardiovascular Disease; Visit Provider Internal Medicine Cardiovascular Disease
DX: I25.10 Atherosclerotic heart disease of native coronary artery without angina pectoris (principal); E78.00 Pure hypercholesterolemia, unspecified; E78.5 Hyperlipidemia, unspecified; Z95.5 Presence of coronary angioplasty implant and graft
CPT/HCPCS: 36415; 78452; 80061; 80076; 93017; A9500; A4216

== ENCOUNTER 2021-03-17 21:15 | Emergency (ER) | payer OTHER, SELFPAY ==
[2021-03-17 21:15] VITALS: BP 137/85; PULSE 76; RESP 18; TEMP 36.7; O2SAT 95; BMI 31.8
--- NOTE | 2021-03-17 21:18 | EKG12_ITS ---
Test Reason : CP Blood Pressure : / mmHG Vent. Rate : 077 BPM Atrial Rate : 077 BPM P-R Int : 138 ms QRS Dur : 096 ms QT Int : 370 ms P-R-T Axes : 002 003 023 degrees QTc Int : 418 ms Normal sinus rhythm Low voltage QRS Borderline ECG Confirmed by ARIELA HICKS, MICHAEL ([id number]), editor at large SUSANNE MCPHERSON ([id number]) on 03/20/2021 12:54:59 PM Referred By: DR YOUNGER Confirmed By:MICHAEL TITUS MD
[2021-03-17 21:44] VITALS: BP 165/80; PULSE 77; RESP 27; RESP 29; TEMP 37.1; O2SAT 95
[2021-03-17 21:46] LABS: Absolute Lymphocyte Count 2.32 X10^3/uL (0.83-4.51); Absolute Neutrophil Count 8.8 X10^3/uL (2.0-7.7); Basophil# 0.07 X10^3/uL; Basophil% 0.5 % (0-1); Eosinophil# 0.43 X10^3/uL; Eosinophils% 3.3 % (0-5); Hematocrit 44.9 % (40-54); Hemoglobin 14.6 g/dL (13.0-16.5); Lymphocyte # 2.32 X10^3/ul (0.83-4.51); Lymphocyte % 17.9 % (19-41); Mean Corp Hgb Conc 32.5 g/dL (32-36); Mean Corpuscular Hgb 30.7 pg (27.0-32.0); Mean Corpuscular Volume 94.3 fL (80-94); Mean Platelet Vol. 9.5 fl (6.2-12.0); Monocyte# 1.32 X10^3/uL; Monocyte% 10.2 % (0-10); NRBC Flagged by Analyzer 0 % (0-5); Neutrophil # 8.78 X10^3/uL (2.7-7.7); Neutrophil % 67.7 % (47-70); Platelet Count 179 K/mm3 (150-450); RBC Distribution Width CV 13.6 % (11.6-14.6); RBC Distribution Width SD 47.6 fl (35.1-43.9); Red Blood Count 4.76 M/mm3 (4.6-6.2)
--- NOTE | 2021-03-17 21:47 | RAD_ITS ---
STUDY: X-RAY CHEST REASON FOR EXAM: Male, 60 years old. chest pain TECHNIQUE: AP portable COMPARISON: 10/27/2018 FINDINGS: Mild prominence of interstitial markings in the right lower lobe.. There is no demonstrated pleural abnormality. Normal size heart. Normal mediastinum and luis. Normal visualized pulmonary arteries. Normal visualized aortic arch and descending thoracic aorta. Normal visualized thoracic spine. Normal visualized ribs, clavicles, and shoulders. There is no demonstrated abnormality of the visualized soft tissue structures of the upper abdomen. The interstitial thickening in the right lower lobe has improved since previous study of the left lower lobe has cleared RAD/Chest 1 View (Portable) IMPRESSION: Mild residual interstitial thickening in the right lower lobe likely chronic change. No definitive evidence for acute cardiopulmonary pathology Electronically Signed: Jesus Benito MD at 22:21 EDT , Service support ,
[2021-03-17 22:12] LABS: Anion Gap 5 (5-15); BUN 13 mg/dL (7-18); BUN/Creat Ratio 16.8 RATIO (10-20); Calcium,Total 8.9 mg/dL (8.5-10.1); Chloride 109 mmol/L (98-107); Creatinine, Serum 0.77 mg/dL (0.70-1.30); EST Glomerular Filtration Rate 109 mL/min (>60); Est Glom Filt Rate - Afr Amer 132 mL/min (>60); Estimated Creatinine Clearance 111.98 ml/min; Glucose 97 mg/dL (74-106); Potassium 3.9 mmol/L (3.5-5.1); Sodium Level 140 mmol/L (136-145); Troponin-I HS < 3 pg/mL (3.0-78.0)
--- NOTE | 2021-03-17 22:28 | EDS_ITS ---
HPI History of Present Illness Chief Complaint: Chest Pain Informant: patient Narrative Narrative: Patient is a 60-year-old male presenting from home for chest pain and cough. He describes the pain as burning in nature. It is worse when he takes a deep breath. It started last night has been constant. It feels like when he had pneumonia before. He does have some mild associated nausea. Denies any vomiting or change in bowel habits. No urinary symptoms. No fever. No nasal congestion or runny nose. Patient has had his Covid vaccine. He does not wear home oxygen and does not have any history of sleep apnea. He does have a history of chronic myeloid leukemia as well as coronary artery disease status post stents. [facility] Medical History (Updated 03/18/21 @ 01:[address] Edwina Meeks, ) Atherosclerosis of coronary artery of [place] heart without angina pectoris Essential (primary) hypertension Fatigue Fracture of great toe, right, open Hiatal hernia with GERD History of back problems History of ST elevation myocardial infarction (STEMI) (01/2017) Hyperlipidemia Leukocytosis Near syncope Nicotine dependence Obesity (BMI 30.0-34.9) Old anterior wall myocardial infarction Unspecified injury of right foot, sequela Home Medications aspirin 81 mg tablet,delayed release 81 mg PO DAILY 09/02/18 [History Last Taken 04/12/20] carvedilol 6.25 mg tablet 6.25 mg PO BID 09/02/18 [History Last Taken 04/12/20] cholecalciferol (vitamin D3) 25 mcg (1,000 unit) capsule 1,000 unit PO DAILY 09/02/18 [History Last Taken 04/12/20] ramipril 2.5 mg capsule 2.5 mg PO DAILY 09/02/18 [History Last Taken 04/12/20] atorvastatin 80 mg tablet 80 mg PO QHS tab 12/15/19 [History Last Taken 04/12/20] ascorbic acid (vitamin C) 1,000 mg PO DAILY 04/05/20 [History Last Taken 04/12/20] ondansetron HCl 8 mg PO Q8H PRN PRN #30 tab 05/05/20 [Rx Last Taken Unknown] omega 5-jqe-cua-fish oil 1 cap PO DAILY 05/12/20 [History Last Taken Unknown] dasatinib 100 mg PO DAILY 07/13/20 [History Last Taken Unknown] vitamin E 200 unit PO DAILY 08/25/20 [History Last Taken Unknown] benzonatate [Tessalon Perles] 100 mg PO BID PRN #20 cap 03/18/21 [Rx Last Taken Unknown] doxycycline hyclate 100 mg PO BID #14 tab 03/18/21 [Rx Last Taken Unknown] Allergy/AdvReac Type Severity Reaction Status Date / Time No Known Allergies Allergy Verified 02/22/21 14:02 Family History Father Colon cancer Diabetes Heart disease Hypertension CAD (coronary artery disease) Sister Breast cancer Mother CAD (coronary artery disease) Hypertension Heart disease Surgical History History of bilateral inguinal hernia repair (08/2018) History of bone marrow biopsy (04/13/20) History of coronary artery stent placement (01/2017) Status post laparoscopic Donovan fundoplication (10/15/18) Social History household members: spouse Smoking Status: Current some day smoker tobacco type: cigarettes Tobacco: How many years used: 40 Electronic Cigarette Use: not used second hand exposure: No alcohol intake: current alcohol intake frequency: a few times a week Alcohol type: beer substance use type: does not use well-balanced diet: about half the time uyen/yazidi: Islam seatbelt use: always do you feel safe at home: Yes ROS ROS ED Constitutional Constitutional ED: Denies chills or fever(s) Eyes Eyes: Denies change in vision ENT ENT ED: Denies ear pain, rhinorrhea or sore throat Cardiovascular Cardiovascular: Reports chest pain; Denies palpitations or racing heartbeat Respiratory/Chest Respiratory/Chest: Reports cough and dyspnea; Denies dyspnea on exertion or sputum Gastrointestinal Gastrointestinal: Reports nausea; Denies abdominal pain, diarrhea or vomiting Genitourinary Genitourinary ED: Denies dysuria or hematuria Musculoskeletal Musculoskeletal: Denies arthralgias or myalgias Integumentary Denies rash Neurologic Neurologic: Denies headache(s) or weakness EXAM Physical Exam Const Vital Signs: 03/17/21 21:15 03/17/21 21:44 03/17/21 23:19 Temperature 98.1 F 98.7 F Temperature Source Temporal Temporal Pulse Rate 76 77 89 Respiratory Rate 18 27 H 20 H Blood Pressure 137/85 H 165/80 H 111/70 Blood Pressure Mean 102 108 83 Pulse Ox 95 95 95 Oxygen Delivery Method Room Air Room Air Room Air 03/18/21 00:03 Temperature Temperature Source Pulse Rate 86 Respiratory Rate 28 H Blood Pressure 120/57 L Blood Pressure Mean 78 Pulse Ox Oxygen Delivery Method Positive well nourished and well developed General Appearance ED: well developed HEENT normocephalic and atraumatic Eyes PERRL and EOMs intact bilaterally Neck no lymphadenopathy, supple and no JVD Chest Wall inspection of chest normal Resp normal respiratory effort Auscultation: rhonchi right upper and right lower Cardio regular rate, regular rhythm and no murmurs GI normal to inspection, nondistended, normoactive bowel sounds Extremity normal to inspection General Extremety ED: Negative for edema or tenderness General Extremity: Negative for edema Neuro oriented x3 Sensorium / Orientation: awake and alert Motor Exam: Negative for general weakness Psych mental status grossly normal Skin no rashes or lesions noted MDM MDM MDM Narrative Medical decision making narrative: Patient is evaluated for chest discomfort. Is mostly pleuritic in nature. He does have a leukocytosis with white blood cell count of 13.0. Chest x-ray interpreted by radiology shows no acute process and chronic changes however I suspect there is a developing infiltrate in the right lower lobe. D-dimer is normal for age. His high sensory phone is normal x2. EKG does not show any acute ischemic changes. Patient be treated as pneumonia. He is not hypoxic in the emergency room and is ambulating does not go below 94%. He had his Covid vaccine and his Covid rapid antigen is negative. Patient will follow up with his medical auditor for his leukocytosis as well as his PCP. He is counseled on return precautions. He verbalizes agreement understanding this plan. He is instructed to take NSAIDs as needed for chest pain as well as per given a prescription for Tessalon Perles to help with his cough. He is given first dose of doxycycline in the emergency room. Lab Data Attestation: I reviewed the patient's lab results. Labs: Laboratory Results - last 24 hr 03/17/21 03/17/21 03/17/21 21:27 21: 21:27 WBC 13.0 H RBC 4.76 Hgb 14.6 Hct 44.9 MCV 94.3 H MCH 30.7 MCHC 32.5 RDW Std Deviation 47.6 H RDW Coeff of Zayra 13.6 Plt Count 179 MPV 9.5 Immature Gran % (Auto) 0.400 Neut % (Auto) 67.7 Lymph % (Auto) 17.9 L [place] % (Auto) 10.2 H Eos % (Auto) 3.3 Baso % (Auto) 0.5 Absolute Neuts (auto) 8.8 H Absolute Lymphs (auto) 2.32 Nucleated RBC % 0 D-Dimer Quant (PE/DVT) Sodium 140 Potassium 3.9 Chloride 109 H Carbon Dioxide 26.0 Anion Gap 5 BUN 13 Creatinine 0.77 Estim Creat Clear Calc 111.98 Est GFR (MDRD) Af Amer 132 Est GFR (MDRD) Non-Af 109 BUN/Creatinine Ratio 16.8 Glucose 97 Calcium 8.9 Total Bilirubin 0.40 Direct Bilirubin 0.10 AST 36 ALT 51 Alkaline Phosphatase 67 Troponin I High Sens < 3 L Total Protein 7.9 Albumin 4.2 Globulin 3.7 Lipase 271 03/17/21 03/17/21 22:50 22:50 WBC RBC Hgb Hct MCV MCH MCHC RDW Std Deviation RDW Coeff of Zayra Plt Count MPV Immature Gran % (Auto) Neut % (Auto) Lymph % (Auto) [place] % (Auto) Eos % (Auto) Baso % (Auto) Absolute Neuts (auto) Absolute Lymphs (auto) Nucleated RBC % D-Dimer Quant (PE/DVT) 0.55 H* Sodium Potassium Chloride Carbon Dioxide Anion Gap BUN Creatinine Estim Creat Clear Calc Est GFR (MDRD) Af Amer Est GFR (MDRD) Non-Af BUN/Creatinine Ratio Glucose Calcium Total Bilirubin Direct Bilirubin AST ALT Alkaline Phosphatase Troponin I High Sens < 3 L Total Protein Albumin Globulin Lipase Radiography Chest X-Ray - ED: 1 View, Read by ED Physician, Read by Radiologist and Left Infiltrate Diagnostic Testing: Radiology Impression Chest X-Ray 03/17/21 21:47 IMPRESSION: Mild residual interstitial thickening in the right lower lobe likely chronic change. No definitive evidence for acute cardiopulmonary pathology Electronically Signed: Jesus Benito MD at 22:21 EDT , Service support , Rhythm Strip Rhythm Strip: Sinus Rhythm Rate: 77 Ectopy: None EKG Initial EKG: Attestation: I personally reviewed and interpreted this EKG as follows: Interpretation: Sinus Rhythm Comments: Normal sinus rhythm the rate of 77 Normal axis Normal intervals Normal ST segments Discharge Plan Triage Chief Complaint: Chest Pain ED Provider: Edwina Meeks Dx/Rx/DC Orders Clinical Impression: Pneumonia, Chest pain, pleuritic, Leukocytosis Instructions: ED Pleurisy, ED Pneumonia (Adult) Prescriptions: New doxycycline hyclate 100 mg tablet 100 mg PO BID Qty: 14 RF: 0 benzonatate [Tessalon Perles] 100 mg capsule 100 mg PO BID PRN (Reason: cough) Qty: 20 RF: 0 No Action carvedilol 6.25 mg tablet 6.25 mg PO BID RF: 0 ramipril 2.5 mg capsule 2.5 mg PO DAILY RF: 0 aspirin 81 mg tablet,delayed release (DR/EC) 81 mg PO DAILY RF: 0 cholecalciferol (vitamin D3) 1,000 unit capsule 1,000 unit capsule 1,000 unit PO DAILY RF: 0 atorvastatin 80 mg tablet 80 mg PO QHS RF: 0 ascorbic acid (vitamin C) 1,000 MG tablet 1,000 mg PO DAILY RF: 0 ondansetron HCl 8 MG tablet 8 mg PO Q8H PRN PRN (Reason: Nausea/Emesis) Qty: 30 RF: 6 omega 6-jgt-qtx-fish oil 500 MG capsule,delayed release(DR/EC) 1 cap PO DAILY RF: 0 dasatinib 100 MG tablet 100 mg PO DAILY RF: 0 vitamin E 200 UNIT capsule 200 unit PO DAILY RF: 0 Primary Care Provider: Jocelin Luo Referrals: Jocelin Luo DO [Primary Care Provider] - Activity Restrictions/Additional Instructions: Follow-up with your oncologist for your white blood cell count to make sure it goes down. We will treat you for pneumonia today. You can take [id number] ibuprofen as needed for the pain. Do not take more than what is recommended on the bottle. Disposition Disposition: Home, Self Care
[2021-03-17 23:14] LABS: AST(SGOT) 36 U/L (15-37); Alanine Aminotransfer ALT/SGPT 51 U/L (16-61); Albumin, Serum 4.2 g/dL (3.2-5.0); Alkaline Phosphatase 67 U/L (45-117); Globulin 3.7 g/dL (2.2-4.2); Lipase 271 U/L (73-393); Protein, Total 7.9 g/dL (6.4-8.2)
[2021-03-17 23:19] VITALS: BP 111/70; PULSE 89; RESP 20; O2SAT 95
[2021-03-17 23:19] LABS: D-Dimer Quantitative (DVT/PE) 0.55 FEU/ug/m (0.27-0.49)
[2021-03-17] MEDS: Aspirin 81 MG TAB.CHEW 324 MG PO (23:26)
[2021-03-17] MEDS: Ketorolac 15 MG/ML Vial IV (23:26)
[2021-03-17 23:39] LABS: Troponin-I HS < 3 pg/mL (3.0-78.0)
[2021-03-18 00:03] VITALS: BP 120/57; PULSE 86; RESP 28
[2021-03-18 00:15] VITALS: O2SAT 95
[2021-03-18] MEDS: Doxycycline 100 MG CAPSULE PO (01:09)
[2021-03-18 01:12] VITALS: PULSE 74; RESP 18; RESP 19; TEMP 37.1; O2SAT 97
== END 2021-03-18 01:13 | disposition home or self-care (01) ==
PROVIDERS: Emergency Provider Emergency Medicine; PCP Internal Medicine
DX: J18.9 Pneumonia, unspecified organism (principal); I25.10 Atherosclerotic heart disease of native coronary artery without angina pectoris; I10 Essential (primary) hypertension; K21.9 Gastro-esophageal reflux disease without esophagitis; E78.5 Hyperlipidemia, unspecified; C92.10 Chronic myeloid leukemia, BCR/ABL-positive, not having achieved remission; F17.210 Nicotine dependence, cigarettes, uncomplicated; Z79.899 Other long term (current) drug therapy
CPT/HCPCS: 71045; 80048; 80076; 83690; 84484; 85025; 85379; 87426; 93005; 96361; 96374; 99284; J7030; A4216

== ENCOUNTER → 2021-05-30 13:33 | Outpatient (CLI) | payer OTHER, SELFPAY ==
[2021-02-22 13:56] VITALS: BMI 31.7
--- NOTE | 2021-05-30 13:44 | CT_ITS ---
STUDY: LOW DOSE CT LUNG CANCER SCREENING REASON FOR EXAM: Male, 60 years old. Lung cancer screening -- and gt;30 pk yr history; current smoker; asymptomatic RADIATION DOSAGE (If Supplied By Facility): CTDIvol = ( 4.02 ) mGy, DLP = ( 140.94 ) mGycm TECHNIQUE: No contrast was administered. Low dose technique was utilized (average mAS-38 and kVp 120). 1.25 mm axial source images with a slice interval of 1.25-mm were reconstructed in lung windows. 2.5 mm axial source images with a slice interval of 2.5-mm were reconstructed in lung windows. 5.0 mm axial source images with a slice interval of 5.0-mm were reconstructed in soft tissue windows. Nodule measured using lung windows on PACS and/or independent workstation with automated measurement of minimum and maximum diameter. Nodule measurement reported as average diameter rounded to the nearest whole number. Growth is defined as an increase ins size of greater than 1.5 mm. COMPARISON: Comparison is made with prior study 05/17/2020. NODULES: No suspicious nodules are seen. Emphysema: Stable apical scarring at both lung apices more prominent on the right side. Mild degree of scarring at the lung bases. Endobronchial lesion: None Aorta: Minimal atherosclerotic plaques of the aortic arch. Coronary arteries: Coronary artery stenting is seen. Heart: Unremarkable Mediastinal nodes: Small mediastinal lymph nodes are seen. Other chest and abdominal findings: CT/Low Dose CT Lung Screening IMPRESSION: Lung-RADS category 2 - Continue annual screening with LDCT in 12 months. IMPORTANT NOTES FOR USE: ACR Lung-RADS Version 1.1 Assessment Categories Release Date: 2018 Category: Coded 0-4 bases on nodule(s) with highest degree of suspicion. Negative screen is defined as categories 1 and 2; a positive screen is defined as categories 3 and 4. Category 3 and 4A nodules that are unchanged on interval CT should be coded as category 2, and individuals returned to screening in 12 months. Category 4X: Category 3 or 4 nodules with additional imaging findings that increase the suspicion of lung cancer, such as spiculation, GGN that doubles in size in 1 year, enlarged lymph notes, etc. Category Modifiers: S (significant finding unrelated to lung cancer) Electronically Signed: Jeovanny Swan MD at 14:18 EST , Service support ,
== END ==
PROVIDERS: PCP Internal Medicine; Referring Provider Nurse Practitioner Family; Visit Provider Nurse Practitioner Family
DX: F17.200 Nicotine dependence, unspecified, uncomplicated (principal); Z12.2 Encounter for screening for malignant neoplasm of respiratory organs
CPT/HCPCS: 71271

== ENCOUNTER 2021-09-06 10:54 | Outpatient (CLI) | payer MEDICARE, SELFPAY ==
--- NOTE | 2021-09-06 10:57 | CDU_ITS ---
Reason For Study: SYNCOPE Rt. Velocities/BP Lt. Velocities/BP Prox CCA 94.3/9.5 cm/sec. Prox CCA 179.1/32.0 cm/sec. Mid CCA 90.4/17.3 cm/sec. Mid CCA 115.4/18.9 cm/sec. Dist CCA 73.8/13.8 cm/sec. Dist CCA 60.6/16.7 cm/sec. Prox ICA 45.0/13.8 cm/sec. Prox ICA 79.3/24.1 cm/sec. Mid ICA 51.6/18.5 cm/sec. Mid ICA 81.8/30.2 cm/sec. Dist ICA 57.2/18.5 cm/sec. Dist ICA 81.8/30.2 cm/sec. Rt. ICA/CCA = .6. Lt. ICA/CCA = .7. Prox ECA 103.8/29.5 cm/sec. Prox ECA 154.8/25.4 cm/sec. Rt. Vert. 61.0/11.9 cm/sec. Lt. Vert. 42.5/13.0 cm/sec. Right Extracranial There is homogeneous, smooth atherosclerotic plaque noted in the right common carotid artery. There is heterogeneous, irregular atherosclerotic plaque noted in the right internal carotid artery. There is no significant atherosclerotic plaque noted in the right external carotid artery. The right external carotid artery is tortuous. Antegrade flow is noted in the right vertebral artery. Left Extracranial There is homogeneous, smooth atherosclerotic plaque noted in the left common carotid artery. There is heterogeneous, smooth atherosclerotic plaque noted in the left internal carotid artery. There is no significant atherosclerotic plaque noted in the left external carotid artery. Antegrade flow is noted in the left vertebral artery. Procedure Carotid Duplex [id number]. Exam performed in department. VL/Carotid Duplex Ultrasound Interpretation Summary Minimal plaque at the proximal right internal carotid artery with less than 50% stenosis Less than 50% stenosis right external carotid artery Minimal calcific plaque at the proximal left internal carotid artery with less than 50% stenosis Less than 50% stenosis left external carotid artery Patent and antegrade vertebrals bilaterally Ordering Physician: Hector Hsu Referring Physician: BRISA SAUNDERS Performed By: Yoli Mayberry, AIDA, RVT
== END 2021-09-06 23:59 | disposition home or self-care (01) ==
LOC: CVS 10:55
PROVIDERS: PCP Internal Medicine; Referring Provider Internal Medicine Cardiovascular Disease; Visit Provider Internal Medicine Cardiovascular Disease
DX: R55 Syncope and collapse (principal)
CPT/HCPCS: 93225; 93226; 93880

== ENCOUNTER 2022-06-03 07:49 | Emergency (ER) | payer MEDICARE, SELFPAY ==
[2022-06-03 07:50] VITALS: BP 139/86; PULSE 81; RESP 22; TEMP 37.1; O2SAT 95; BMI 32.1
--- NOTE | 2022-06-03 08:05 | CT_ITS ---
STUDY: CTA CHEST REASON FOR EXAM: Male, 61 years old. 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 Post-processing of the angiographic images was performed, with multiplanar reformation and 3D reconstruction. Individualized dose optimization techniques were used for this CT. COMPARISON: CT of the chest dated May 17, 2020. CT lung screening exams dated May 30, 2021 FINDINGS: Moderate right side and small left-sided pleural effusions are present. Moderate right lower lobe atelectasis is also present. No visualized consolidation or lung nodules. Normal enhancement of the main pulmonary artery and right and left pulmonary arteries. Normal enhancement of the bilateral peripheral pulmonary arteries. There is no demonstrated pulmonary embolism. There is atherosclerotic calcification of the aortic arch with tortuosity. There is no demonstrated aortic dissection. Normal heart size. A moderate size anterior pericardial effusion is present. There are no demonstrate calcifications of the coronary arteries. Normal mediastinum. Normal hilar regions. Normal visualized trachea and bronchi. The lungs are well expanded. Normal chest wall structures. There are degenerative changes of thoracic spine. No visualized lytic or blastic lesions of the bony structures. Normal visualized upper abdomen. CT/CTA Chest W/WO Contrast IMPRESSION: 1. Moderate right side and small left-sided pleural effusions are present. Moderate right lower lobe atelectasis is also present. No visualized consolidation or lung nodules. 2. No demonstrated pulmonary embolism or arterial dissection. Electronically Signed: Ezra Darnell MD at 10:43 EST Reading Location ID and State: [facility] / [place] , Service support ,
--- NOTE | 2022-06-03 08:08 | CT_ITS ---
STUDY: CT ABDOMEN AND PELVIS WITH CONTRAST REASON FOR EXAM: Male, 61 years old. 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 IV 100mL Isovue-370 was administered. Sagittal and coronal images were reconstructed. Individualized dose optimization techniques were used for this CT. COMPARISON: CTA of the chest dated June 03, 2022 FINDINGS: A moderate size right pleural effusion is present. Small left pleural effusion noted. Moderate size anterior pericardial effusion is also present. A small simple cyst is present in the posterior aspect of the right lobe of the liver of no clinical significance. The liver is otherwise normal. Normal gallbladder and extrahepatic biliary system. Normal spleen. Normal pancreas. Normal bilateral adrenal glands. Normal right kidney. Normal left kidney. There is a small hiatal hernia. Curved and redundant mucosal configuration. The fundus of the stomach is compatible with known ABBEY fundoplication. The stomach is otherwise unremarkable. Mild gaseous and fluid distention of the proximal to mid jejunum could represent mild focal ileus or enteritis. There is no transition zone or other signs of bowel obstruction on the current study. No free air or free fluid is present. Moderate stool retention is seen in the rectosigmoid colon. No diverticula are seen. Normal colon. The appendix is visualized and appears normal. There is diffuse atherosclerotic calcification of the abdominal aorta, without a demonstrated aneurysm. Normal inferior vena cava. Normal retroperitoneum. Normal urinary bladder. There are prostatic calcifications. Normal abdominal wall. No inguinal hernias are present on the current study. There are diffuse degenerative changes of the visualized lumbar spine. CT/Abdomen/Pelvis W IV Cont ONLY IMPRESSION: 1. Curved and redundant mucosal configuration. The fundus of the stomach is compatible with known ABBEY fundoplication. The stomach is otherwise unremarkable. 2. Mild gaseous and fluid distention of the proximal to mid jejunum could represent mild focal ileus or enteritis. There is no transition zone or other signs of bowel obstruction on the current study. 3. No free air or free fluid is present. 4. Moderate stool retention is seen in the rectosigmoid colon. Electronically Signed: Ezra Darnell MD at 10:36 EST ,
--- NOTE | 2022-06-03 08:11 | EX.ED.DYSGE1 ---
HPI History of Present Illness Chief Complaint: General Illness Informant: patient Narrative Narrative: Patient states he has a chronic cough but it has been worse for the past 5 days, occasionally productive. He feels like he has occasionally had some subjective fevers but he has not checked his temperature. 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 Follows with local oncology. He has felt short of breath he thinks since before the cough became worse, but now his breathing is worse and about 4 days ago he woke up with left flank pain that is worse with movement and worse with coughing, it has progressively become worse and is not colicky. No urinary symptoms. He states now his pain is severe which is the main thing that prompted his ED visit today, but he is also very dyspneic. He has a history of an NH remotely, he takes aspirin no other blood thinning medications, and he does not have a history of chronic lung disease although he continues to smoke. 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) Pneumonia Tobacco use disorder, continuous Unspecified injury of right foot, sequela Home Medications aspirin 81 mg tablet,delayed release 81 mg PO DAILY 09/02/18 [History Last Taken 04/12/20] carvedilol 6.25 mg tablet 6.25 mg PO BID 09/02/18 [History Last Taken 04/12/20] cholecalciferol (vitamin D3) 25 mcg (1,000 unit) capsule 1,000 unit PO DAILY 09/02/18 [History Last Taken 04/12/20] ramipril 2.5 mg capsule 2.5 mg PO DAILY 09/02/18 [History Last Taken 04/12/20] atorvastatin 80 mg tablet 80 mg PO QHS 12/15/19 [History Last Taken 04/12/20] ascorbic acid (vitamin C) 1,000 mg tablet 1,000 mg PO DAILY 04/05/20 [History Last Taken 04/12/20] ondansetron HCl 8 mg tablet 8 mg PO Q8H PRN PRN Nausea/Emesis #30 tabs 05/05/20 [Rx Last Taken Unknown] omega 3-dha 60 mg-epa 90 mg-fish oil 500 mg capsule, delayed release 1 cap PO DAILY 05/12/20 [History Last Taken Unknown] dasatinib 100 mg tablet 100 mg PO DAILY 07/13/20 [History Last Taken Unknown] vitamin E 200 unit capsule 200 unit PO DAILY 08/25/20 [History Last Taken Unknown] benzonatate 100 mg capsule (Tessalon Perles) 100 mg PO BID PRN cough #20 caps 03/18/21 [Rx Last Taken Unknown] doxycycline hyclate 100 mg tablet 100 mg PO BID #14 tabs 03/18/21 [Rx Last Taken Unknown] dasatinib 100 mg tablet (Sprycel) 100 mg PO DAILY 30 days #30 tabs 03/07/22 [Rx Last Taken Unknown] hydrocodone-acetaminophen 5-325mg 5mg-325mg 1 tab PO Q4H PRN PRN Pain 2 days #10 TABLETS 06/03/22 [Rx Last Taken Unknown] meloxicam 7.5 mg tablet 7.5 mg PO DAILY #7 tabs 06/03/22 [Rx Last Taken Unknown] Allergy/AdvReac Type Severity Reaction Status Date / Time No Known Allergies Allergy Verified 06/03/22 07:50 Family History Father Colon cancer Diabetes Heart disease Hypertension CAD (coronary artery disease) Sister Breast cancer Mother CAD (coronary artery disease) Hypertension Heart disease Surgical History History of bilateral inguinal hernia repair (08/2018) History of bone marrow biopsy (04/13/20) History of coronary artery stent placement (01/20/17) Status post laparoscopic Donovan fundoplication (10/15/18) Social History household members: spouse Smoking Status: Current every day smoker tobacco type: cigarettes Tobacco: How many years used: 40 Electronic Cigarette Use: not used second hand exposure: No quit status: considering quitting counseling given: provider counseling alcohol intake: current alcohol intake frequency: a few times a week Alcohol type: beer substance use type: does not use well-balanced diet: about half the time uyen/temple: Uatsdin seatbelt use: always do you feel safe at home: Yes ROS ROS ED Constitutional Constitutional ED: Reports fever(s) and subjective; Denies chills Eyes Eyes: Denies change in vision or diplopia ENT ENT ED: Denies rhinorrhea or sore throat Cardiovascular Cardiovascular: Denies chest pain, orthopnea or palpitations Respiratory/Chest Respiratory/Chest: Reports cough, dyspnea and sputum; Denies orthopnea Gastrointestinal Gastrointestinal: Reports other Details: Left lateral side pain radiates into left mid abdomen but no other abdominal symptoms ; Denies diarrhea, nausea or vomiting Genitourinary Genitourinary ED: Reports flank pain; Denies dysuria or hematuria Musculoskeletal Musculoskeletal: Reports other Details: Left flank pain radiates toward the left low back but no other back pain ; Denies neck pain Integumentary Denies abscess or rash Neurologic Neurologic: Denies headache(s), paresthesias or weakness Psychiatric Psychiatric: Denies anxiety or suicidal thoughts EXAM Physical Exam Const Vital Signs: 06/03/22 07:50 06/03/22 08:01 06/03/22 07:50 Temperature 98.7 F 98.7 F Temperature Source Temporal Temporal Pulse Rate 81 81 Respiratory Rate 22 H 22 H Respiratory Effort Short of Breath Respiratory Pattern Tachypnea Blood Pressure 139/86 H 139/86 H Blood Pressure Mean 103 103 Pulse Ox 95 95 Oxygen Delivery Method Room Air Room Air 06/03/22 08:50 06/03/22 09:09 06/03/22 10:00 Temperature 98.1 F 97.7 F L Temperature Source Oral Oral Pulse Rate 76 74 Respiratory Rate 24 H 24 H 20 H Respiratory Effort Respiratory Pattern Hyperpnea Blood Pressure 141/86 H 140/81 H Blood Pressure Mean 104 100 Pulse Ox 93 94 Oxygen Delivery Method Room Air Room Air Positive well nourished, well developed and obese General Appearance ED: well developed and NAD Nutritional Appearance: obese HEENT Reports moist mucous membranes normocephalic and atraumatic Eyes PERRL and EOMs intact bilaterally Neck full ROM, supple and no JVD Chest Wall inspection of chest normal and palpation of chest normal Resp Resp Narrative: Tachypneic no distress. Mild wheezes with more prominent bronchial breath sounds left base, clear/decreased throughout the right base. Cardio regular rate, regular rhythm and no murmurs GI non-distended GI Narrative: Tender in the left lateral flank, over lower ribs, superficially, reproduces his pain significantly; no abdominal tenderness otherwise. No pulsatile mass but exam limited by obesity. No rash or lesion in the area of pain. Auscultation: normoactive bowel sounds Palpation: soft Back/Spine no CVA tenderness General Back: other FROM Extremity normal to inspection General Extremety ED: Negative for edema, pulses abnormal or tenderness General Extremity: Negative for edema or pulses abnormal Neuro oriented x3, CN's II-XII intact bilaterally and no sensory deficits noted Sensorium / Orientation: awake and alert Motor Exam: strength 5/5 throughout Psych Mood & Affect: anxious Skin no rashes or lesions noted and no wounds MDM MDM MDM Narrative Medical decision making narrative: Given patient's history although he does have some reproducible pain on the left side, it is out of proportion to his exam to some degree, so I obtained a CT, and since he needed a chest x-ray for his cough and was having dyspnea prior to the cough with his history of leukemia, I skipped the x-ray and obtain CT angiography of the chest at the same time as the CT to more fully evaluate his thorax. It shows a large right pleural effusion explaining his more prominent breath sounds in the left base, in addition to a small pleural effusion on the left with no obvious etiology/mass, no consolidation/pneumonia, or other acute abnormality. CT of the abdomen/pelvis basically shows no acute reason for his pain in the left flank which on exam seems extremely musculoskeletal, and his pain is much better after Toradol and morphine. He was reassured, as his breathing is better after his pain is better controlled. I discussed with Ms. turcios on for the hematology/oncology group the patient is established with, since the patient is not hypoxemic and his pain is controlled and he has no medical reason to require admission, they would prefer to have him set up for an outpatient thoracentesis for diagnostic purposes, and I suspect this will really help with the patient's breathing as well. Since he is bringing up some clear phlegm, I suspect he has a viral infection on top of his pleural effusions, which I do not think are hyperacute. The rest of his work-up is negative including white blood count, BNP, troponin, EKG, and urinalysis. Discussed all this with the patient I will prescribe him something for pain but I encouraged him to also use topicals for his musculoskeletal pain in the left flank which is over his lower ribs and probably due to coughing. Answered all of his questions at the bedside he is comfortable with this overall plan, oncology will contact him tomorrow to set up thoracentesis, as it is not available by radiology today as it is Saturday. Lab Data Attestation: I reviewed the patient's lab results. Labs: Laboratory Results - last 24 hr 06/03/22 06/03/22 06/03/22 08:51 08:51 08:51 WBC 7.3 RBC 5.06 Hgb 15.5 Hct 46.7 MCV 92.3 MCH 30.6 MCHC 33.2 RDW Std Deviation 45.1 H RDW Coeff of Zayra 13.3 Plt Count 251 MPV 9.6 Immature Gran % (Auto) 0.300 Neut % (Auto) 70.8 H Lymph % (Auto) 13.6 L [place] % (Auto) 10.1 H Eos % (Auto) 4.5 Baso % (Auto) 0.7 Absolute Neuts (auto) 5.2 Absolute Lymphs (auto) 1.00 Nucleated RBC % 0 Sodium 139 Potassium 4.3 Chloride 105 Carbon Dioxide 27.0 Anion Gap 7 BUN 9 Creatinine 0.70 Estim Creat Clear Calc 121.63 Est GFR (MDRD) Af Amer 148 Est GFR (MDRD) Non-Af 122 BUN/Creatinine Ratio 12.9 Glucose 110 H Lactic Acid Calcium 9.2 Troponin I High Sens < 3 L B-Natriuretic Peptide 38.5 Urine Color Urine Clarity Urine pH Ur Specific [place] Urine Protein Urine Glucose (UA) Urine Ketones Urine Occult Blood Urine Nitrite Urine Bilirubin Urine Urobilinogen Ur Leukocyte Esterase Urine RBC Urine WBC Ur Squamous Epith Cells Urine Bacteria Urine Mucus 06/03/22 06/03/22 08:51 09:14 WBC RBC Hgb Hct MCV MCH MCHC RDW Std Deviation RDW Coeff of Zayra Plt Count MPV Immature Gran % (Auto) Neut % (Auto) Lymph % (Auto) [place] % (Auto) Eos % (Auto) Baso % (Auto) Absolute Neuts (auto) Absolute Lymphs (auto) Nucleated RBC % Sodium Potassium Chloride Carbon Dioxide Anion Gap BUN Creatinine Estim Creat Clear Calc Est GFR (MDRD) Af Amer Est GFR (MDRD) Non-Af BUN/Creatinine Ratio Glucose Lactic Acid 1.3 Calcium Troponin I High Sens B-Natriuretic Peptide Urine Color Yellow Urine Clarity Clear Urine pH 7.0 Ur Specific [place] 1.010 Urine Protein 15 H Urine Glucose (UA) Normal Urine Ketones Negative Urine Occult Blood Negative Urine Nitrite Negative Urine Bilirubin Negative Urine Urobilinogen Normal Ur Leukocyte Esterase Negative Urine RBC 0 SEEN Urine WBC 0 SEEN Ur Squamous Epith Cells 0 SEEN Urine Bacteria 0 SEEN Urine Mucus 0 SEEN Radiography Diagnostic Testing: Clinical Impression(s) from Imaging Studies Chest CTA 06/03/22 08:05 IMPRESSION: 1. Moderate right side and small left-sided pleural effusions are present. Moderate right lower lobe atelectasis is also present. No visualized consolidation or lung nodules. 2. No demonstrated pulmonary embolism or arterial dissection. Electronically Signed: Ezra Darnell MD at 10:43 EST Reading Location ID and State: [facility] / [place] , Service support , Abdomen/Pelvis CT 06/03/22 08:08 IMPRESSION: 1. Curved and redundant mucosal configuration. The fundus of the stomach is compatible with known DONOVAN fundoplication. The stomach is otherwise unremarkable. 2. Mild gaseous and fluid distention of the proximal to mid jejunum could represent mild focal ileus or enteritis. There is no transition zone or other signs of bowel obstruction on the current study. 3. No free air or free fluid is present. 4. Moderate stool retention is seen in the rectosigmoid colon. Electronically Signed: Ezra Darnell MD at 10:36 EST , Rhythm Strip Rhythm Strip: Sinus Rhythm Rate: 80 Ectopy: None EKG Initial EKG: Attestation: I personally reviewed and interpreted this EKG as follows: Interpretation: Sinus Rhythm and No Acute Injury Pattern Comments: unremarkable EKG Discharge Plan Triage Chief Complaint: General Illness ED Provider: eHrmes Kent Dx/Rx/DC Orders Clinical Impression: Bilateral pleural effusion, Chronic myeloid leukemia, Viral URI with cough, Pain in abdominal muscle of left flank Instructions: ED Pleural Effusion Prescriptions: New hydrocodone-acetaminophen [hydrocodone-acetaminophen] 1 TABLET tablet 1 tab PO Q4H PRN PRN (Reason: Pain) 2 Days Qty: 10 0RF meloxicam 7.5 mg tablet 7.5 mg PO DAILY Qty: 7 0RF No Action carvedilol 6.25 mg tablet 6.25 mg PO BID ramipril 2.5 mg capsule 2.5 mg PO DAILY aspirin 81 mg tablet,delayed release (DR/EC) 81 mg PO DAILY cholecalciferol (vitamin D3) 1,000 unit capsule 1,000 unit capsule 1,000 unit PO DAILY atorvastatin 80 mg tablet 80 mg PO QHS ascorbic acid (vitamin C) 1,000 MG tablet 1,000 mg PO DAILY ondansetron HCl 8 MG tablet 8 mg PO Q8H PRN PRN (Reason: Nausea/Emesis) Qty: 30 6RF omega 9-dbk-yrp-fish oil 500 MG capsule,delayed release(DR/EC) 1 cap PO DAILY dasatinib 100 MG tablet 100 mg PO DAILY vitamin E 200 UNIT capsule 200 unit PO DAILY Sprycel 100 mg Tablet 100 mg PO DAILY 30 Days Qty: 30 11RF doxycycline hyclate 100 mg tablet 100 mg PO BID Qty: 14 0RF benzonatate [Tessalon Perles] 100 mg capsule 100 mg PO BID PRN (Reason: cough) Qty: 20 0RF Primary Care Provider: Jocelin Luo Referrals: Jocelin Luo DO [Primary Care Provider] - Sawyer Delgado MD [Med Staff - Active Staff] - As soon as possible (Office should call you tomorrow to help set up outpatient thoracentesis) Activity Restrictions/Additional Instructions: May also consider using topical pain reliever such as Biofreeze, Bengay, Sportscreme, IcyHot, etc. to your left flank/side. Disposition Disposition: Home, Self Care
--- NOTE | 2022-06-03 08:36 | EKG12_ITS ---
Test Reason : GENERAL ILLNESS Blood Pressure : / mmHG Vent. Rate : 083 BPM Atrial Rate : 083 BPM P-R Int : 134 ms QRS Dur : 082 ms QT Int : 352 ms P-R-T Axes : -15 036 017 degrees QTc Int : 413 ms Normal sinus rhythm Low voltage QRS Borderline ECG Confirmed by ARIELA HICKS, MICHAEL ([id number]), web editor SUSANNE MCPHERSON ([id number]) on 06/05/2022 11:17:22 AM Referred By: Confirmed By:MICHAEL TITUS MD
[2022-06-03 08:50] VITALS: RESP 24
[2022-06-03] MEDS: Albuterol 2.5 MG/3 ML VIAL.NEB. INHALATION (08:50)
[2022-06-03] MEDS: Ondansetron 4 MG/2 ML Vial IV (09:03)
[2022-06-03] MEDS: 0.9% Normal Saline 1,000 ML 125 ML IV (09:03)
[2022-06-03] MEDS: Morphine 4 MG/ML Syringe IV ×2 (09:03→10:16)
[2022-06-03 09:09] VITALS: BP 141/86; PULSE 76; RESP 24; TEMP 36.7; O2SAT 93
[2022-06-03 09:09] LABS: Absolute Neutrophil Count 5.2 X10^3/uL (2.0-7.7); Basophil# 0.05 X10^3/uL; Basophil% 0.7 % (0-1); Eosinophil# 0.33 X10^3/uL; Eosinophils% 4.5 % (0-5); Hematocrit 46.7 % (40-54); Hemoglobin 15.5 g/dL (13.0-16.5); Lymphocyte % 13.6 % (19-41); Mean Corp Hgb Conc 33.2 g/dL (32-36); Mean Corpuscular Hgb 30.6 pg (27.0-32.0); Mean Corpuscular Volume 92.3 fL (80-94); Mean Platelet Vol. 9.6 fl (6.2-12.0); Monocyte# 0.74 X10^3/uL; Monocyte% 10.1 % (0-10); NRBC Flagged by Analyzer 0 % (0-5); Neutrophil # 5.19 X10^3/uL (2.7-7.7); Neutrophil % 70.8 % (47-70); Platelet Count 251 K/mm3 (150-450); RBC Distribution Width CV 13.3 % (11.6-14.6); RBC Distribution Width SD 45.1 fl (35.1-43.9); Red Blood Count 5.06 M/mm3 (4.6-6.2); White Blood Count 7.3 K/mm3 (4.4-11.0)
[2022-06-03 09:20] LABS: Bacteria 0 SEEN /hpf (None Seen); Mucous, Urine 0 SEEN /hpf (<or=2+); Red Blood Cells-Urine 0 SEEN /hpf (0-5); Squamous Epithelial Cells - UA 0 SEEN /hpf (0-5); White Blood Cells 0 SEEN /hpf (0-5)
[2022-06-03 09:22] LABS: Color, Urine Yellow (Yellow); Glucose, Dipstick Normal (Normal); Ketone-Dipstick Negative (Negative); Leukocyte Esterase-Dipstick Negative /ul (Negative); Nitrite-Dipstick Negative (Negative); Occult Blood-Urine Negative /ul (Negative); Protein-Dipstick 15 mg/dl (Negative); Urine Bilirubin Dipstick Negative (Negative); Urine Clarity Clear (Clear); Urine Urobilinogen Normal (Normal)
[2022-06-03 09:27] LABS: Anion Gap 7 (5-15); BUN 9 mg/dL (7-18); BUN/Creat Ratio 12.9 RATIO (10-20); Calcium,Total 9.2 mg/dL (8.5-10.1); Chloride 105 mmol/L (98-107); EST Glomerular Filtration Rate 122 mL/min (>60); Est Glom Filt Rate - Afr Amer 148 mL/min (>60); Estimated Creatinine Clearance 121.63 ml/min; Glucose 110 mg/dL (74-106); Potassium 4.3 mmol/L (3.5-5.1); Sodium Level 139 mmol/L (136-145); Troponin-I HS < 3 pg/mL (3.0-78.0)
[2022-06-03 09:28] LABS: Lactic Acid 1.3 mmol/L (0.4-1.9)
[2022-06-03 10:00] VITALS: BP 140/81; PULSE 74; RESP 20; TEMP 36.5; O2SAT 94
[2022-06-03 10:06] LABS: BNP,B-Type NATRIURETIC PEPTIDE 38.5 pg/mL (0-100)
[2022-06-03] MEDS: Ketorolac 15 MG/ML Vial IV (10:28)
[2022-06-03 11:43] VITALS: BP 134/78; PULSE 66; RESP 18; TEMP 36.6; O2SAT 99
== END 2022-06-03 11:44 | disposition home or self-care (01) ==
PROVIDERS: Emergency Provider Emergency Medicine; PCP Internal Medicine; Visit Provider Emergency Medicine
DX: C92.10 Chronic myeloid leukemia, BCR/ABL-positive, not having achieved remission (principal); R06.02 Shortness of breath; J06.9 Acute upper respiratory infection, unspecified; F17.210 Nicotine dependence, cigarettes, uncomplicated; E78.5 Hyperlipidemia, unspecified; J90 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, not elsewhere classified; I10 Essential (primary) hypertension; I25.10 Atherosclerotic heart disease of native coronary artery without angina pectoris; R05.3 Chronic cough; R10.9 Unspecified abdominal pain; Z92.21 Personal history of antineoplastic chemotherapy
CPT/HCPCS: 71275; 74177; 80048; 81001; 83605; 83880; 84484; 85025; 87040; 87428; 93005; 94640; 96374; 96375; 96376; 99282; J7030; Q9967; A4216; J2405

== ENCOUNTER 2022-06-04 08:44 | Emergency (ER) | payer MEDICARE, SELFPAY ==
[2022-06-04] VITALS (11 sets, daily range): BP systolic 122–155; BP diastolic 70–90; PULSE 82–88; RESP 14–30; TEMP 36.7–37; O2SAT 83–97; BMI 32.5
--- NOTE | 2022-06-04 | IMM_PTH ---
PATIENT: EDNA THOMAS LOC: ED U#:[id number] AGE/SX: 61/M ROOM: RE06/04/[address]: Dr. Hermes Kent MD : 1960 BED: DIS: 06/04/2022 SPEC #: [id number] RECD: 06/05/22 11:57 STATUS: ANTONIO REQ #: [id number] ISAAC: 06/04/22 00:[address]: Hermes Kent DEPT: IMMUNOHISTOCHEMISTRY RECD BY: Brayan Gonzalez ENTERED: 06/05/22 12:03 SP TYPE: IMMUNO OTHR DR: Dr. Jocelin Luo DO Tissues: THORACIC FLUID Procedures: CD20 (add) CD45 (add) CD5 (add) CD79A (add) MPO (add) CD3 (initial) PHYSICIAN & INSTITUTION [place] [id number] SPECIMEN INFORMATION: Tissue Source: Thoracentesis, right Clinical Info: 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 history of leukemia Specimen Number: [id number] CPT code: 92266, 53035 x5 METHODOLOGY: Deparaffinized sections of prefer/formalin-fixed tissue or PAP/DQ stained slides are incubated with monoclonal/polyclonal antibodies/oligonucleotide probes. Localization is made via biotin free immunoperoxidase method. Appropriate controls are performed and reacted as expected. Results on target cell population are indicated in the following table: RESULTS: ANTIBODY / CLONE RESULT CD3 (PS1) positive CD5 (SP10) positive CD20 (L26) positive, rare cells CD45 (RP2/18) positive CD79a (11E3) positive MPO (polyclonal) positive (in mature neutrophils) These tests were developed and their performance characteristics determined by [facility]. They may not have been cleared or approved by the U.S. Food and Drug Administration. The FDA has determined that such clearance or approval is not necessary. The above immunohistochemical/dualISH markers are ordered and reviewed by the Pathologist. INTERPRETATION: Thoracentesis, right: Consistent with lymphocytic effusion, lymphocytes are polytypic in nature Negative for malignancy /SJ:cc 06/06/2022
--- NOTE | 2022-06-04 09:10 | US_ITS ---
PROCEDURE: ULTRASOUND GUIDED THORACENTESIS. DATE: 06/04/2022. INDICATION: Male, 61 years old. Right pleural effusion. PHYSICIAN: Jeovanny Swan M.D. PROCEDURE: The risks, benefits, and alternatives to the procedure were explained to the patient. The specific risks of bleeding, infection, and pneumothorax requiring chest tube insertion were discussed and accepted. Written informed consent was obtained. Ultrasonographic evaluation of the right lower pleural space was carried out. An adequate pocket was identified. The patient was placed in the sitting, upright position. The overlying skin was prepped and draped in sterile fashion. 1% lidocaine was administered subcutaneously for local anesthesia. Under ultrasound guidance, a 5 [place] thoracentesis needle/catheter system was advanced into the right posterior lower pleural fluid collection. Approximately 1900 mL of rajan-colored fluid was drained. The catheter was removed, and a sterile dressing was applied. A specimen was collected and sent to the laboratory for analysis, as requested by the referring clinician. The patient tolerated the procedure well. A chest x-ray was ordered. US/Thoracentesis W US IMPRESSION: Ultrasound-guided right thoracentesis. Electronically Signed: Jeovanny Swan MD at 11:08 EST ,
--- NOTE | 2022-06-04 09:11 | ED.VIS.DYS ---
HPI History of Present Illness Chief Complaint: Shortness of Breath Informant: patient Narrative Narrative: Patient has been short of breath for a week or 2, he was seen here yesterday for the same thing. His work-up was negative except for pleural effusions bilaterally worse on the right. He was going to follow-up today Saturday to get an outpatient thoracentesis scheduled this week, however he cannot wait. He was too short of breath lying down and could not sleep, and in addition he has pain in his left flank that is unchanged but hurting him as well. We prescribed him some pain medicine yesterday, he states he has not yet been able to get them filled and that is bothering him too. He denies any new symptoms. [facility] Medical History Atherosclerosis of coronary artery of [place] heart without angina pectoris Encounter for screening for malignant neoplasm of lung in current smoker with 30 pack year history or greater Essential (primary) hypertension Fatigue Fracture of great toe, right, open Hiatal hernia with GERD History of back problems History of ST elevation myocardial infarction (STEMI) (01/20/17) Hyperlipidemia Leukocytosis Near syncope Nicotine dependence Obesity (BMI 30.0-34.9) 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) Pneumonia Tobacco use disorder, continuous Unspecified injury of right foot, sequela Home Medications aspirin 81 mg tablet,delayed release 81 mg PO DAILY 09/02/18 [History Last Taken 04/12/20] carvedilol 6.25 mg tablet 6.25 mg PO BID 09/02/18 [History Last Taken 04/12/20] cholecalciferol (vitamin D3) 25 mcg (1,000 unit) capsule 1,000 unit PO DAILY 09/02/18 [History Last Taken 04/12/20] ramipril 2.5 mg capsule 2.5 mg PO DAILY 09/02/18 [History Last Taken 04/12/20] atorvastatin 80 mg tablet 80 mg PO QHS 12/15/19 [History Last Taken 04/12/20] ascorbic acid (vitamin C) 1,000 mg tablet 1,000 mg PO DAILY 04/05/20 [History Last Taken 04/12/20] ondansetron HCl 8 mg tablet 8 mg PO Q8H PRN PRN Nausea/Emesis #30 tabs 05/05/20 [Rx Last Taken Unknown] omega 3-dha 60 mg-epa 90 mg-fish oil 500 mg capsule, delayed release 1 cap PO DAILY 05/12/20 [History Last Taken Unknown] dasatinib 100 mg tablet 100 mg PO DAILY 07/13/20 [History Last Taken Unknown] vitamin E 200 unit capsule 200 unit PO DAILY 08/25/20 [History Last Taken Unknown] benzonatate 100 mg capsule (Angiesalharvinder Lipscomb) 100 mg PO BID PRN cough #20 caps 03/18/21 [Rx Last Taken Unknown] doxycycline hyclate 100 mg tablet 100 mg PO BID #14 tabs 03/18/21 [Rx Last Taken Unknown] dasatinib 100 mg tablet (Sprycel) 100 mg PO DAILY 30 days #30 tabs 03/07/22 [Rx Last Taken Unknown] hydrocodone-acetaminophen 5-325mg 5mg-325mg 1 tab PO Q4H PRN PRN Pain 2 days #10 TABLETS 06/03/22 [Rx Last Taken Unknown] meloxicam 7.5 mg tablet 7.5 mg PO DAILY #7 tabs 06/03/22 [Rx Last Taken Unknown] Allergy/AdvReac Type Severity Reaction Status Date / Time No Known Allergies Allergy Verified 06/04/22 08:50 Family History Father Colon cancer Diabetes Heart disease Hypertension CAD (coronary artery disease) Sister Breast cancer Mother CAD (coronary artery disease) Hypertension Heart disease Surgical History History of bilateral inguinal hernia repair (08/2018) History of bone marrow biopsy (04/13/20) History of coronary artery stent placement (01/20/17) Status post laparoscopic Donovan fundoplication (10/15/18) Social History household members: spouse Smoking Status: Current every day smoker tobacco type: cigarettes Tobacco: How many years used: 40 Electronic Cigarette Use: not used second hand exposure: No quit status: considering quitting counseling given: provider counseling alcohol intake: current alcohol intake frequency: a few times a week Alcohol type: beer substance use type: does not use well-balanced diet: about half the time uyen/baptist: Yazidism seatbelt use: always do you feel safe at home: Yes ROS ROS ED Constitutional Constitutional ED: Denies chills or fever(s) Eyes Eyes: Denies change in vision or diplopia ENT ENT ED: Denies rhinorrhea or sore throat Cardiovascular Cardiovascular: Reports orthopnea; Denies chest pain or palpitations Respiratory/Chest Respiratory/Chest: Reports cough, dyspnea and orthopnea Gastrointestinal Gastrointestinal: Denies diarrhea, nausea or vomiting Genitourinary Genitourinary ED: Reports flank pain; Denies dysuria or hematuria Musculoskeletal Musculoskeletal: Denies arthralgias or neck pain Integumentary Denies abscess or rash Neurologic Neurologic: Denies headache(s), paresthesias or weakness Psychiatric Psychiatric: Denies anxiety or suicidal thoughts EXAM Physical Exam Const Vital Signs: 06/04/22 08:45 06/04/22 09:49 06/04/22 09:53 Temperature 98.0 F Temperature [1 (Initial Baseline)] Temperature Source Temporal Pulse Rate 88 Pulse Rate [1 (Initial Baseline)] Pulse Rate [2] Pulse Rate [3] Pulse Rate [4] Respiratory Rate 14 Respiratory Rate [1 (Initial Baseline)] Respiratory Rate [2] Respiratory Rate [3] Respiratory Rate [4] Respiratory Effort Respiratory Depth Respiratory Pattern Blood Pressure 155/90 H Blood Pressure [1 (Initial Baseline)] Blood Pressure [2] Blood Pressure [3] Blood Pressure [4] Blood Pressure Mean 111 Pulse Ox 95 83 94 Oxygen Delivery Method Room Air Room Air Nasal Cannula Oxygen Delivery Method [1 (Initial Baseline)] Oxygen Delivery Method [2] Oxygen Delivery Method [3] Oxygen Delivery Method [4] Oxygen Flow Rate (L/min) 5 Oxygen Flow Rate (L/min) [1 (Initial Baseline)] Oxygen Flow Rate (L/min) [2] Oxygen Flow Rate (L/min) [3] 06/04/22 10:18 06/04/22 10:44 06/04/22 11:16 Temperature Temperature [1 (Initial Baseline)] Temperature Source Pulse Rate 83 85 Pulse Rate [1 (Initial Baseline)] Pulse Rate [2] Pulse Rate [3] Pulse Rate [4] Respiratory Rate 19 H 22 H Respiratory Rate [1 (Initial Baseline)] Respiratory Rate [2] Respiratory Rate [3] Respiratory Rate [4] Respiratory Effort Short of Breath Respiratory Depth Deep Respiratory Pattern Tachypnea Blood Pressure 132/78 H 135/87 H Blood Pressure [1 (Initial Baseline)] Blood Pressure [2] Blood Pressure [3] Blood Pressure [4] Blood Pressure Mean 96 103 Pulse Ox 93 92 Oxygen Delivery Method Room Air Nasal Cannula Nasal Cannula Oxygen Delivery Method [1 (Initial Baseline)] Oxygen Delivery Method [2] Oxygen Delivery Method [3] Oxygen Delivery Method [4] Oxygen Flow Rate (L/min) 2 2 Oxygen Flow Rate (L/min) [1 (Initial Baseline)] Oxygen Flow Rate (L/min) [2] Oxygen Flow Rate (L/min) [3] 06/04/22 10:34 06/04/22 12:56 06/04/22 14:24 Temperature Temperature [1 (Initial Baseline)] 98.6 F Temperature Source Pulse Rate 83 82 Pulse Rate [1 (Initial Baseline)] 88 Pulse Rate [2] 85 Pulse Rate [3] 83 Pulse Rate [4] 83 Respiratory Rate 19 H 16 Respiratory Rate [1 (Initial Baseline)] 30 H Respiratory Rate [2] 20 H Respiratory Rate [3] 20 H Respiratory Rate [4] 24 H Respiratory Effort Short of Breath Labored Respiratory Depth Respiratory Pattern Tachypnea Blood Pressure 122/71 H 136/72 H Blood Pressure [1 (Initial Baseline)] 133/78 H Blood Pressure [2] 134/75 H Blood Pressure [3] 129/70 H Blood Pressure [4] 135/75 H Blood Pressure Mean 88 93 Pulse Ox 93 93 Oxygen Delivery Method Nasal Cannula Room Air Oxygen Delivery Method [1 (Initial Baseline)] Nasal Cannula Oxygen Delivery Method [2] Nasal Cannula Oxygen Delivery Method [3] Room Air Oxygen Delivery Method [4] Room Air Oxygen Flow Rate (L/min) 2 Oxygen Flow Rate (L/min) [1 (Initial Baseline)] 5 Oxygen Flow Rate (L/min) [2] 5 Oxygen Flow Rate (L/min) [3] 5 Positive well nourished, well developed and obese General Appearance ED: well developed and NAD Nutritional Appearance: obese HEENT Reports moist mucous membranes normocephalic and atraumatic Eyes PERRL and EOMs intact bilaterally Neck full ROM and supple Resp clear to auscultation bilaterally Resp Narrative: Decreased breath sounds on the right specially at the base. Trachea midline. No distress. Conversive in full sentences. Cardio regular rate, regular rhythm and no murmurs GI non-tender and non-distended GI Narrative: Point tender left side lower ribs, laterally. No abdominal tenderness anteriorly. Auscultation: normoactive bowel sounds Palpation: soft Back/Spine no CVA tenderness and normal to inspection Back/Spine Narrative: Limited range of motion due to pain in the left lateral side, no back tenderness. Extremity normal to inspection General Extremety ED: Negative for edema, pulses abnormal or tenderness General Extremity: Negative for edema or pulses abnormal Neuro oriented x3, CN's II-XII intact bilaterally and no sensory deficits noted Sensorium / Orientation: awake and alert Motor Exam: strength 5/5 throughout Psych Mood & Affect: anxious Skin no rashes or lesions noted and no wounds MDM MDM MDM Narrative Medical decision making narrative: Discussed with radiology, the patient will need to be in the ED for several hours prior to being able to have an ultrasound-guided thoracentesis done which is the plan. While he was waiting, his oxygen levels did drop into the high 80s and he was placed on oxygen, he was given analgesics for the pain in his left flank which was thought to be musculoskeletal based on a negative CT abdomen/pelvis we did yesterday. I discussed with oncology, they do want cytology on the fluid, but could not offer further guidance except for the fact that the oral chemotherapeutic agent that he is on can rarely cause transudative pleural effusions. I have also ordered serum and pleural fluid labs to evaluate the characteristics of his fluid, see below. Clinically, after returning from thoracentesis, patient is breathing much better, and his pain is much better since he is not having a cough with regards to his left flank musculoskeletal pain. With ambulation he does not have any hypoxemia. His postthoracentesis chest x-ray shows no pneumothorax and resolution of the right-sided pleural effusion, and he is comfortable with going home Pleural fluid protein : Serum protein = 0.56 Pleural fluid LDH : Serum LDH = 0.56 Pleural fluid LDH is less than two thirds of the upper limit of normal of the serum LDH White blood count 7388, 88% lymphocytes This is essentially borderline exudative. I discussed these results with Dr. Brooks with pulmonary, and we sent a culture. In addition to cytology he recommends sending flow cytometry, and having the patient follow-up with him as an outpatient after this returns which may be 1-2 weeks. Patient will also follow-up with his oncologist in the office to review cytology. Lab Data Attestation: I reviewed the patient's lab results. Labs: Laboratory Results - last 24 hr 06/04/22 06/04/22 06/04/22 09:35 10:40 10:40 Total Bilirubin 0.50 Direct Bilirubin 0.08 AST 28 ALT 27 Alkaline Phosphatase 76 Lactate Dehydrogenase 242 H Total Protein 7.8 Albumin 3.9 Globulin 3.9 Fluid Source Cancelled Fluid Color Cancelled Fluid Appearance Cancelled Fluid WBC Cancelled Fluid RBC Cancelled Fluid Tot Cell Count Cancelled Fld Polynuclear WBCs # Cancelled Fld Polynuclear WBCs % Cancelled Fluid Mononuclear WBCs Cancelled Fld Mononuclear WBCs % Cancelled Fluid Neutrophils Cancelled Fluid Lymphocytes Cancelled Fluid Monocytes Cancelled Fluid Plasma Cells Cancelled Fluid Macrophages Cancelled Fld Mesothelial Cells Cancelled Fluid Other Cells Cancelled Fl Pathologist Comment Cancelled Fluid Total Protein 4.4 Fluid LDH 136 Fluid Comment 2 Cancelled 06/04/22 10:40 Total Bilirubin Direct Bilirubin AST ALT Alkaline Phosphatase Lactate Dehydrogenase Total Protein Albumin Globulin Fluid Source THORACENTESIS Fluid Color YELLOW Fluid Appearance SL CLDY Fluid WBC 7.217 Fluid RBC 0.003 Fluid Tot Cell Count 7.388 Fld Polynuclear WBCs # 0.042 Fld Polynuclear WBCs % 0.6 Fluid Mononuclear WBCs 7.175 Fld Mononuclear WBCs % 99.4 Fluid Neutrophils 0 Fluid Lymphocytes 88 Fluid Monocytes 1 Fluid Plasma Cells Fluid Macrophages 5 Fld Mesothelial Cells 6 Fluid Other Cells Fl Pathologist Comment May follow Fluid Total Protein Fluid LDH Fluid Comment 2 SEE COMMENT Radiography Diagnostic Testing: Clinical Impression(s) from Imaging Studies Thoracentesis Ultrasound 06/04/22 09:10 IMPRESSION: Ultrasound-guided right thoracentesis. Electronically Signed: Jeovanny Swan MD at 11:08 EST , Chest X-Ray 06/04/22 10:58 IMPRESSION: Status post right thoracentesis. There is no evidence of pneumothorax. Electronically Signed: Jeovanny Swan MD at 11:07 EST , Discharge Plan Triage Chief Complaint: Shortness of Breath ED Provider: Hermes Kent Dx/Rx/DC Orders Clinical Impression: Acute respiratory insufficiency, Bilateral pleural effusion, Chronic myeloid leukemia Instructions: DIOGO RN Thoracentesis Dc Prescriptions: No Action carvedilol 6.25 mg tablet 6.25 mg PO BID ramipril 2.5 mg capsule 2.5 mg PO DAILY aspirin 81 mg tablet,delayed release (DR/EC) 81 mg PO DAILY cholecalciferol (vitamin D3) 1,000 unit capsule 1,000 unit capsule 1,000 unit PO DAILY atorvastatin 80 mg tablet 80 mg PO QHS ascorbic acid (vitamin C) 1,000 MG tablet 1,000 mg PO DAILY ondansetron HCl 8 MG tablet 8 mg PO Q8H PRN PRN (Reason: Nausea/Emesis) Qty: 30 6RF omega 4-lpo-ahe-fish oil 500 MG capsule,delayed release(DR/EC) 1 cap PO DAILY dasatinib 100 MG tablet 100 mg PO DAILY vitamin E 200 UNIT capsule 200 unit PO DAILY Sprycel 100 mg Tablet 100 mg PO DAILY 30 Days Qty: 30 11RF doxycycline hyclate 100 mg tablet 100 mg PO BID Qty: 14 0RF benzonatate [Tessalon Perles] 100 mg capsule 100 mg PO BID PRN (Reason: cough) Qty: 20 0RF hydrocodone-acetaminophen [hydrocodone-acetaminophen] 1 TABLET tablet 1 tab PO Q4H PRN PRN (Reason: Pain) 2 Days Qty: 10 0RF meloxicam 7.5 mg tablet 7.5 mg PO DAILY Qty: 7 0RF Primary Care Provider: Jocelin Luo Referrals: John Brooks DO [Med Staff - Active Staff] - 1-2 Weeks Jocelin Luo DO [Primary Care Provider] - Sawyer Delgado MD [Med Staff - Active Staff] - 3-5 Days Disposition Disposition: Home, Self Care
--- NOTE | 2022-06-04 09:23 | ED.RN ---
Ultrasound called this RN to discuss thoracentesis for pt. Unable to perform until 1330.
[2022-06-04] MEDS: Ondansetron ODT 4 MG Tablet 8 MG PO (09:31)
[2022-06-04] MEDS: Morphine 4 MG/ML Syringe IM (09:31)
[2022-06-04] MEDS: Lidocaine 2% (20 ml mdv) 20 ML Vial INFILT (10:40)
--- NOTE | 2022-06-04 10:40 | FLU_PTH ---
PATIENT: EDNA THOMAS LOC: ED U#:[id number] AGE/SX: 61/M ROOM: RE06/04/[address]: Dr. Hermes Kent MD : [id number] BED: DIS: 06/04/2022 SPEC #: [id number] RECD: 06/04/22 10:54 STATUS: ANTONIO REJey #: [id number] ISAAC: 06/04/22 10:[address]: Hermes Kent DEPT: CYTOLOGY RECD BY: Ninfa Gonzalez ENTERED: 06/04/22 11:50 SP TYPE: Fluid OTHR DR: Dr. Jocelin Luo DO Tissues: Pleural fluid, NOS Procedures: Special Stain Group II Surgery Specimen Level IV Cytospin Fluid HEADER OPERATION: Thoracentesis, right PRE-OP DIAGNOSIS: 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, history of leukemia TISSUE SUBMITTED: Thoracentesis, right DIAGNOSIS CYTOLOGY Thoracentesis, right (cytospin and cell block): Negative for malignant cells. Consistent with lymphocytic effusion. /SJ 11/16/22 COMMENT Immunohistochemistry ([id number]) supports the above diagnosis. Lymphocytes are polytypic in nature. Correlation with clinical, radiologic findings and appropriate follow up are necessary. CYTOLOGY STUDY Slides are reviewed. CYTOLOGY GROSS Received is 50 ml of yellow cloudy fluid labeled with the patient's name and and designated per the requisition as thoracentesis, right. Submitted for cytology preparation including cell block. /CW:ned 06/04/22 TC:5 CPT: 05030, 74494
[2022-06-04 10:56] LABS: Cytology, Body Fluid / CSF SEE PATHOLOGY REPORT
--- NOTE | 2022-06-04 10:58 | RAD_ITS ---
STUDY: X-RAY CHEST REASON FOR EXAM: Male, 61 years old. Post thorax TECHNIQUE: AP inspiration and expiration views. COMPARISON: Comparison is made with prior study dated 03/17/2021. FINDINGS: The patient is status post right thoracentesis. There is no evidence of pneumothorax. RAD/Chest Insp/Exp 2 View IMPRESSION: Status post right thoracentesis. There is no evidence of pneumothorax. Electronically Signed: Jeovanny Swan MD at 11:07 EST ,
[2022-06-04 11:04] LABS: AST(SGOT) 28 U/L (15-37); Alanine Aminotransfer ALT/SGPT 27 U/L (16-61); Albumin, Serum 3.9 g/dL (3.2-5.0); Alkaline Phosphatase 76 U/L (45-117); Bilirubin, Direct 0.08 mg/dL (0.00-0.30); Globulin 3.9 g/dL (2.2-4.2); LDH 242 U/L (87-241); Protein, Total 7.8 g/dL (6.4-8.2)
[2022-06-04 11:54] LABS: LDH,Body Fluid 136 Units/l (Not Establ.); Protein, Body Fluid 4.4 g/dL (Not Establ.)
[2022-06-04 12:50] LABS: Auto B Fluid Analyzer BKGD Ct COUNTS W/IN LIMITS (W/IN LIMITS)
[2022-06-04 12:51] LABS: Appearance/Body Fluid SL CLDY; Body Fluid Mononuclear WBC % 99.4 %; Body Fluid Polynuclear WBC % 0.6 %; Body Fluid Total Cells Counted 7.388 10^3/ul; Color/Body Fluid YELLOW; Red Cell Count/Body Fluid 0.003 10^6/ul; Source- Body Fluid THORACENTESIS; White Blood Count/Body Fluid 7.217 10^3/uL
[2022-06-04 12:52] LABS: Body Fluid Mononuclear WBC # 7.175 10^3/uL; Body Fluid Polynuclear WBC # 0.042 10^3/uL; Body Fluid QC Type(s) BF1Q; Lymphocytes 88 %; Macrophages 5 %; Mesothelial Cells 6 %; Monocytes 1 %; Neutrophil (Segs) 0 %
[2022-06-05 15:01] LABS: Pathologist Comment/Body Fluid Reviewed
== END 2022-06-04 15:20 | disposition home or self-care (01) ==
PROVIDERS: Emergency Provider Emergency Medicine; PCP Internal Medicine; Visit Provider Emergency Medicine
DX: J90 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, not elsewhere classified (principal); C92.10 Chronic myeloid leukemia, BCR/ABL-positive, not having achieved remission; E78.5 Hyperlipidemia, unspecified; F17.210 Nicotine dependence, cigarettes, uncomplicated; R10.9 Unspecified abdominal pain; I10 Essential (primary) hypertension; I25.10 Atherosclerotic heart disease of native coronary artery without angina pectoris; E66.9 Obesity, unspecified; R06.89 Other abnormalities of breathing
CPT/HCPCS: 32555; 71046; 80076; 83615; 84157; 87070; 87075; 87205; 88108; 88305; 88313; 88341; 88342; 89050; 96372; 99283; A4216

== ENCOUNTER → 2022-07-03 | Outpatient (CLI) | payer MEDICARE, SELFPAY ==
--- NOTE | 2022-07-03 09:03 | RAD_ITS ---
STUDY: X-RAY CHEST REASON FOR EXAM: Male, 62 years old. f/u pleural effusions TECHNIQUE: PA and lateral views of the chest. COMPARISON: Comparison is made with prior study dated 06/04/2022. FINDINGS: Since prior study, there is a small right pleural effusion with right basilar atelectasis. Mild degree of atelectasis is also seen at the left lung base with blunting of the left costophrenic angle. Normal size heart. There are calcified mediastinal lymph nodes. Normal visualized pulmonary arteries. Normal visualized aortic arch and descending thoracic aorta. There are degenerative changes of the visualized thoracic spine. Normal visualized ribs, clavicles, and shoulders. There is no demonstrated abnormality of the visualized soft tissue structures of the upper abdomen. RAD/Chest PA and Lateral IMPRESSION: Small right pleural effusion with underlying infiltration and/or atelectasis. Mild blunting of the left costophrenic angle with mild increased markings at the left lung base. Electronically Signed: Jeovanny Swan MD at 11:09 EST ,
== END | disposition home or self-care (01) ==
LOC: RAD 09:01
PROVIDERS: PCP Internal Medicine; Visit Provider Internal Medicine Hematology & Oncology
DX: J90 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, not elsewhere classified (principal)
CPT/HCPCS: 71046

== ENCOUNTER → 2022-08-06 | Outpatient (CLI) | payer MEDICARE, SELFPAY ==
--- NOTE | 2022-08-06 10:18 | PFTCOMP ---
COMPLETE PULMONARY FUNCTION TEST INTERPRETATION Brief HPI: Patient is a 62-year-old male, currently under the care of Dr. Brooks, who presents to [facility] for complete pulmonary function tests secondary to diagnosis of dyspnea. Respiratory therapist reports good effort and reproducible results. Interpretation: Forced expiration spirometry shows a severe large airways obstructive ventilatory defect with an FEV1 of 49% predicted. There is a significant bronchodilator response in FVC and FEV1 by strict ATS criteria. Spirograms are of good quality and plateau slowly, indicating slowly emptying areas of the lungs. The respiratory flow volume loop shows decreased expiratory flow rates at all lung volumes consistent with airway obstruction. Lung volumes by body plethysmography show a decreased total lung capacity at 4.76 L, 67% predicted. FRC and RV are elevated out of proportion. Lung volume measurements are trending to air-trapping, but do not meet strict ATS criteria. Diffusion capacity by carbon monoxide is normal at 104% predicted. The airway resistance is elevated. No previous pulmonary function tests were available for review. Impression: Partially reversible severe mixed ventilatory defect with relatively preserved diffusing capacity
== END | disposition home or self-care (01) ==
LOC: PSN 06:59
PROVIDERS: PCP Internal Medicine; Visit Provider Internal Medicine Critical Care Medicine
DX: R06.02 Shortness of breath (principal)
CPT/HCPCS: 94060; 94726; 94729

== ENCOUNTER → 2022-08-08 | Outpatient (CLI) | payer MEDICARE, SELFPAY ==
--- NOTE | 2022-08-08 16:04 | EKG12_ITS ---
Test Reason : Blood Pressure : / mmHG Vent. Rate : 067 BPM Atrial Rate : 067 BPM P-R Int : 146 ms QRS Dur : 090 ms QT Int : 382 ms P-R-T Axes : 009 -01 027 degrees QTc Int : 403 ms Normal sinus rhythm Septal infarct , age undetermined Abnormal ECG Confirmed by ARIELA HICKS, MICHAEL ([id number]), features editor SUSANNE MCPHERSON ([id number]) on 08/09/2022 8:32:27 AM Referred By: Sawyer Delgado Confirmed By:MICHAEL TITUS MD
--- NOTE | 2022-08-08 16:10 | RAD_ITS ---
INDICATION: F/U PLEURAL EFFUSION EXAMINATION/TECHNIQUE: X-RAY - XR Chest 2 Views COMPARISON: 07/20/2022 FINDINGS: LIFE-SUPPORT AND LINES: 1. None HEART AND VESSELS: The cardiac silhouette, pulmonary vasculature have normal appearance. No evidence of congestive failure. LUNGS AND PLEURAL SPACES: RIGHT basilar atelectasis and volume loss, moderate RIGHT effusion again noted without significant change. LEFT lung is clear, mild blunting LEFT CP angle. MEDIASTINUM AND HILAR REGIONS: No masses adenopathy noted. No areas of calcification. Visualized upper airway is normal in position. BONY ELEMENTS: No acute bony changes noted. RAD/Chest PA and Lateral IMPRESSION: 1. Moderate size RIGHT pleural effusion with passive atelectasis at the RIGHT lung base. 2. Minimal atelectasis at LEFT base and minimal blunting LEFT CP angle. 3. No congestive failure. Electronically Signed: Ari Hallman MD at 17:21 EST ,
== END | disposition home or self-care (01) ==
LOC: PSN 16:02
PROVIDERS: PCP Internal Medicine; Referring Provider Internal Medicine Hematology & Oncology; Visit Provider Internal Medicine Hematology & Oncology
DX: C92.10 Chronic myeloid leukemia, BCR/ABL-positive, not having achieved remission (principal); J90 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, not elsewhere classified
CPT/HCPCS: 36415; 71046; 80053; 85025; 85045; 93005

== ENCOUNTER → 2022-08-09 | Outpatient (CLI) | payer MEDICARE, SELFPAY ==
[2022-08-09 08:15] VITALS: PULSE 66; PULSE 69; PULSE 85; PULSE 86; PULSE 89; PULSE 90; O2SAT 92; O2SAT 93; O2SAT 95
--- NOTE | 2022-08-09 14:39 | PCM.PSN.6M ---
PSN 6 Minute Walk Test 6 Minute Walk Test 6 Minute Walk Test: 6 Minute Walk Test PSN:6-Minute Walk Test Start: 08/09/22 08:25 Freq: Status: Active Protocol: RESP.6MINW Document 08/09/22 08:15 [facility] (Rec: 08/09/22 08:28 [facility] [id number]) 6 Minute Walk Test Date Performed 08/09/22 Time Performed 08:15 Height 6 ft Weight: 106.594 kg Weight in Pounds 235.[address]: John Brooks Assistive device used: None Pre-test Oxygen Delivery Method Room Air Pulse Ox (%) 95 Pulse Rate (60-100 beats/min) 66 Dyspnea Felicity Scale (0-10) 0 Exertion Felicity Scale (6-20) 6 1st minute Oxygen Delivery Method Room Air Pulse Ox (%) 93 Pulse Rate (60-100 beats/min) 85 2nd minute Oxygen Delivery Method Room Air Pulse Ox (%) 92 Pulse Rate (60-100 beats/min) 90 3rd minute Oxygen Delivery Method Room Air Pulse Ox (%) 93 Pulse Rate (60-100 beats/min) 86 4th minute Oxygen Delivery Method Room Air Pulse Ox (%) 93 Pulse Rate (60-100 beats/min) 85 5th minute Oxygen Delivery Method Room Air Pulse Ox (%) 93 Pulse Rate (60-100 beats/min) 90 6th minute Oxygen Delivery Method Room Air Pulse Ox (%) 93 Pulse Rate (60-100 beats/min) 89 Dyspnea Felicity Scale (0-10) 0.5 Exertion Felicity Scale (6-20) 8 Post-test Oxygen Delivery Method Room Air Pulse Ox (%) 95 Pulse Rate (60-100 beats/min) 69 Full Laps Walked 20 Partial Lap, Number of Tiles Walked 20 Total Distance Walked (ft) 1200 Interpretation Interpretation: The patient was able to ambulate 1200 feet over the course of 6 minutes on room air with no assistive devices or breaks. The patient experienced significant desaturation from a baseline of 95% to as low as 92%, but no significant tachycardia was noted. Recommendations Recommendations: No supplemental oxygen is indicated at this time.
== END | disposition home or self-care (01) ==
LOC: PSN 08:07
PROVIDERS: PCP Internal Medicine; Visit Provider Internal Medicine Critical Care Medicine
DX: R06.02 Shortness of breath (principal)
CPT/HCPCS: 94618

== ENCOUNTER 2022-08-16 13:57 | Outpatient (CLI) | payer MEDICARE, SELFPAY ==
--- NOTE | 2022-08-16 13:59 | EKG12_ITS ---
Test Reason : ROUTINE Blood Pressure : / mmHG Vent. Rate : 069 BPM Atrial Rate : 069 BPM P-R Int : 158 ms QRS Dur : 090 ms QT Int : 386 ms P-R-T Axes : 023 -17 -05 degrees QTc Int : 413 ms Normal sinus rhythm Normal ECG Confirmed by ARIELA HICKS, MICHAEL ([id number]), newspaper photo editor SUSANNE MCPHERSON ([id number]) on 08/17/2022 12:55:11 PM Referred By: Sawyer Delgado Confirmed By:MICHAEL TITUS MD
--- NOTE | 2022-08-16 14:18 | RAD_ITS ---
EXAM: XR CHEST, 2 VIEWS CLINICAL INDICATION: F/U PLEURAL EFFUSION TECHNIQUE: Frontal and lateral views of the chest. This report was created using [employer] report generation technology. COMPARISON: 08/08/2022 and 07/03/2022. FINDINGS: LUNGS AND PLEURAL SPACES: Unremarkable. No pneumothorax. No change in the moderate right pleural effusion. HEART: Unremarkable. Cardiac silhouette not enlarged. MEDIASTINUM: Central airways and mediastinal contour are unremarkable. BONES/JOINTS: Unremarkable. SOFT TISSUES: Unremarkable. RAD/Chest PA and Lateral IMPRESSION: No change in the moderate right pleural effusion. Electronically Signed: Chalino Ryder MD at 4:33 EST ,
== END 2022-08-16 23:59 | disposition home or self-care (01) ==
LOC: PSN 13:58
PROVIDERS: PCP Internal Medicine; Referring Provider Internal Medicine Hematology & Oncology; Visit Provider Internal Medicine Hematology & Oncology
DX: J90 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, not elsewhere classified (principal); C92.10 Chronic myeloid leukemia, BCR/ABL-positive, not having achieved remission; Z79.899 Other long term (current) drug therapy
CPT/HCPCS: 36415; 71046; 80053; 85025; 85045; 93005

== ENCOUNTER → 2022-08-30 | Outpatient (CLI) | payer MEDICARE, SELFPAY ==
--- NOTE | 2022-08-30 11:53 | EKG12_ITS ---
Test Reason : THERAPUTIC DRUG LEVE Blood Pressure : / mmHG Vent. Rate : 066 BPM Atrial Rate : 066 BPM P-R Int : 166 ms QRS Dur : 098 ms QT Int : 392 ms P-R-T Axes : 012 -11 017 degrees QTc Int : 410 ms Normal sinus rhythm Normal ECG Confirmed by ELVI HICKS, ANI ([id number]), editorial specialist SUSANNE MCPHERSON ([id number]) on 08/31/2022 12:59:19 P M Referred By: ZUHAIR Confirmed By:BRYANT BOLES MD
== END | disposition home or self-care (01) ==
LOC: PSN 11:53
PROVIDERS: PCP Internal Medicine; Visit Provider Internal Medicine Hematology & Oncology
DX: Z79.899 Other long term (current) drug therapy (principal)
CPT/HCPCS: 36415; 80053; 83735; 84100; 85025; 85045; 93005

== ENCOUNTER → 2022-10-04 | Outpatient (CLI) | payer MEDICARE, SELFPAY ==
--- NOTE | 2022-10-04 09:42 | EKG12_ITS ---
Test Reason : CORRECTION MED Blood Pressure : / mmHG Vent. Rate : 061 BPM Atrial Rate : 061 BPM P-R Int : 156 ms QRS Dur : 094 ms QT Int : 398 ms P-R-T Axes : -08 -15 013 degrees QTc Int : 400 ms Normal sinus rhythm Normal ECG Confirmed by ELVI HICKS, ANI ([id number]), sports editor SUSANNE MCPHERSON ([id number]) on 10/05/2022 7:03:34 AM Referred By: Sawyer Delgado Confirmed By:BRYANT BOLES MD
== END | disposition home or self-care (01) ==
LOC: PSN 09:40
PROVIDERS: PCP Internal Medicine; Referring Provider Internal Medicine Hematology & Oncology; Visit Provider Internal Medicine Hematology & Oncology
DX: C92.10 Chronic myeloid leukemia, BCR/ABL-positive, not having achieved remission (principal); Z51.81 Encounter for therapeutic drug level monitoring; Z79.899 Other long term (current) drug therapy
CPT/HCPCS: 93005

== ENCOUNTER → 2022-10-05 | Outpatient (CLI) | payer MEDICARE, SELFPAY ==
[2022-10-05 11:19] LABS: AST(SGOT) 25 U/L (15-37); Alanine Aminotransfer ALT/SGPT 44 U/L (16-61); Albumin, Serum 4.2 g/dL (3.2-5.0); Alkaline Phosphatase 80 U/L (45-117); Bilirubin, Direct 0.13 mg/dL (0.00-0.30); Cholesterol 145 mg/dL (200); High Density Lipoprotein 44 mg/dL; Protein, Total 8.2 g/dL (6.4-8.2); Triglycerides 229 mg/dL; Very Low Density Lipoprotein 46 mg/dL (5-40)
== END | disposition home or self-care (01) ==
LOC: PAVLAB 10:34
PROVIDERS: PCP Internal Medicine; Referring Provider Internal Medicine Cardiovascular Disease; Visit Provider Internal Medicine Cardiovascular Disease
DX: I25.10 Atherosclerotic heart disease of native coronary artery without angina pectoris (principal); I10 Essential (primary) hypertension; Z95.5 Presence of coronary angioplasty implant and graft
CPT/HCPCS: 36415; 80061; 80076

== ENCOUNTER → 2022-10-17 | Outpatient (CLI) | payer MEDICARE, SELFPAY ==
--- NOTE | 2022-10-18 07:29 | STRESSREP ---
Stress Test Report Exercise myocardial perfusion stress test. 62-year-old man with a history of coronary artery disease Stress protocol: Resting EKG demonstrates normal sinus rhythm with a rate of 60 bpm resting blood pressure is 140/94 mmHg. The patient exercised according to the regular Gallito protocol for a total duration of 9 minutes attaining a maximum heart rate of 129 bpm which was 81% of maximum predicted heart rate; the maximum workload was 10.1 metabolic equivalents. At rest there were no ST or T wave changes noted to suggest ischemia and at peak exercise upsloping ST changes only were noted which did not meet the criteria for ischemia. No clinical angina was noted the test was terminated due to the target heart rate being achieved/fatigue. The peak blood pressure was 190/84 mmHg. Rate-pressure product was 21,400. Myocardial perfusion protocol. 14 point mCi of technetium 99m sestamibi was injected at rest. The patient exercised according to regular Galltio protocol for total duration of 9 minutes and at peak exercise 44.8 mCi of technetium 99m sestamibi was injected stress images were obtained stress and rest images were reconstructed in comparing the short axis vertical long and horizontal long axis. Gated images were also obtained. Perfusion SPECT analysis: Review of the stress images demonstrate normal uptake of tracer noted in all areas of the myocardium. The resting images similarly demonstrate normal uptake of tracer noted in all areas of the myocardium. No areas of reversibility are noted to suggest ischemia no previous infarct was noted. Gated SPECT analysis: The gated ejection fraction is 59%. Conclusion: Normal exercise myocardial perfusion stress test at a high workload Preserved ejection fraction.
== END | disposition home or self-care (01) ==
LOC: CVS 07:03
PROVIDERS: PCP Internal Medicine; Visit Provider Internal Medicine Cardiovascular Disease
DX: I25.10 Atherosclerotic heart disease of native coronary artery without angina pectoris (principal)
CPT/HCPCS: 78452; 93017; A9500

== ENCOUNTER → 2023-06-05 | Outpatient (CLI) | payer MEDICARE, SELFPAY ==
--- NOTE | 2023-06-05 14:27 | CT_ITS ---
STUDY: LOW DOSE CT LUNG CANCER SCREENING REASON FOR EXAM: Male, 62 years old. smoker and gt; 30 pack years RADIATION DOSAGE (If Supplied By Facility): CTDIvol = ( 3.18 ) mGy, DLP = ( 114.37 ) mGycm TECHNIQUE: No contrast was administered. Low dose technique was utilized (average mAS-38 and kVp 120). 1.25 mm axial source images with a slice interval of 1.25-mm were reconstructed in lung windows. 2.5 mm axial source images with a slice interval of 2.5-mm were reconstructed in lung windows. 5.0 mm axial source images with a slice interval of 5.0-mm were reconstructed in soft tissue windows. COMPARISON: 06/03/2022 Emphysema: Mild bilateral apical scarring. Mild emphysema. No noncalcified nodule or mass.. Endobronchial lesion: None Aorta: Some calcified plaque in the aortic arch but no aortic aneurysm. CORONARY ARTERIES: Coronary artery calcification is seen. Heart: No cardiomegaly. Small pericardial effusion. Pulmonary artery: Normal Mediastinal nodes: Normal Other chest and abdominal findings: Moderate right pleural effusion. CT/Low Dose CT Lung Screening IMPRESSION: Lung-RADS category 1 - Continue annual screening with LDCT in 12 months. IMPORTANT NOTES FOR USE: ACR Lung-RADS Version 1.1 Assessment Categories Release Date: 2018 Category: Coded 0-4 bases on nodule(s) with highest degree of suspicion. Negative screen is defined as categories 1 and 2; a positive screen is defined as categories 3 and 4. Category 3 and 4A nodules that are unchanged on interval CT should be coded as category 2, and individuals returned to screening in 12 months. Category 4X: Category 3 or 4 nodules with additional imaging findings that increase the suspicion of lung cancer, such as spiculation, GGN that doubles in size in 1 year, enlarged lymph notes, etc. Category Modifiers: S (significant finding unrelated to lung cancer) Electronically Signed: Ari Sequeira MD at 22:14 EST ,
== END | disposition home or self-care (01) ==
PROVIDERS: PCP Internal Medicine; Referring Provider Nurse Practitioner Acute Care; Visit Provider Nurse Practitioner Acute Care
DX: F17.210 Nicotine dependence, cigarettes, uncomplicated (principal)
CPT/HCPCS: 71271

== ENCOUNTER → 2023-10-21 | Outpatient (CLI) | payer MEDICARE, SELFPAY ==
--- NOTE | 2023-10-21 09:45 | US_ITS ---
STUDY: ABDOMINAL ULTRASOUND - RIGHT UPPER QUADRANT; ELASTOGRAPHY REASON FOR VISIT: Male, 63 years old. Elevated liver enzymes. TECHNIQUE: Ultrasound evaluation of the right upper quadrant was performed with real-time and static juan-scale imaging. Point quantification shear wave elastography was performed ([place]). TECHNICAL QUALITY: Adequate. COMPARISON: Comparison is made with prior study dated April 13, 2020. FINDINGS: Liver: The liver is enlarged and measures 18.3 cm. There is increased echogenicity consistent with fatty infiltration. The bile ducts are within normal limits. There is hepatic color flow. The direction of portal flow is hepatopetal. There is no demonstrated mass lesion. Median liver stiffness measured 8.6 kPa. Gallbladder: Normal distended gallbladder. The gallbladder wall measures 2.0 mm. There is a negative sonographic Valenzuela''s sign. There is no pericholecystic fluid. There are no gallstones. There is a 5 mm x 5 mm x 4 mm polyp adherent to the gallbladder wall. Common Bile Duct (C.B.D.): The common bile duct measures 4 mm. Pancreas: There is normal echogenicity of the visualized pancreas. There is no demonstrated pancreatic mass or cyst. Right Kidney: Normal size of the right kidney. The right kidney measures 13.2 cm x 6.9 cm x 6 cm. Normal renal cortex. The right cortex measures 2.0 cm. There is a 1.3 cm x 1.1 cm x 0.7 cm cyst in the upper pole of the right kidney. There is no right hydronephrosis. Incidental note is made of a small right pleural effusion. US/ABD Limited w/ Elastography IMPRESSION: 1. Liver stiffness measures 8.6 kPa compatible with F2-F3 (Mild to moderate liver fibrosis) Metavir score. Electronically Signed: Jeovanny Swan MD at 11:50 EDT ,
== END | disposition home or self-care (01) ==
LOC: US 09:44
PROVIDERS: PCP Internal Medicine; Referring Provider Internal Medicine; Visit Provider Internal Medicine
DX: R74.8 Abnormal levels of other serum enzymes (principal)
CPT/HCPCS: 76705; 76981

== ENCOUNTER 2023-12-23 03:39 | Observation (INO) | payer MEDICARE, SELFPAY ==
[2023-12-23] VITALS (17 sets, daily range): BP systolic 99–189; BP diastolic 62–105; PULSE 50–69; RESP 15–18; TEMP 36.3–36.8; O2SAT 91–98; BMI 31.8; BMI 31.6
[2023-12-23] MEDS: Ondansetron 4 MG/2 ML Vial IV (03:56)
[2023-12-23] MEDS: morphine 8 MG/ML Syringe IV (03:56)
[2023-12-23 04:25] LABS: Bacteria 0 SEEN /hpf (None Seen); Mucous, Urine 0 SEEN /hpf (<or=2+)
[2023-12-23 04:32] LABS: Absolute Lymphocyte Count 1.68 X10^3/uL (0.83-4.51); Absolute Neutrophil Count 6.3 X10^3/uL (2.0-7.7); Basophil# 0.09 X10^3/uL; Eosinophil# 0.35 X10^3/uL; Eosinophils% 3.8 % (0-5); Hematocrit 48.1 % (40-54); Hemoglobin 15.8 g/dL (13.0-16.5); Lymphocyte # 1.68 X10^3/ul (0.83-4.51); Lymphocyte % 18.2 % (19-41); Mean Corp Hgb Conc 32.8 g/dL (32-36); Mean Corpuscular Hgb 29.4 pg (27.0-32.0); Mean Corpuscular Volume 89.6 fL (80-94); Mean Platelet Vol. 10.7 fl (6.2-12.0); Monocyte# 0.81 X10^3/uL; Monocyte% 8.8 % (0-10); NRBC Flagged by Analyzer 0 % (0-5); Neutrophil # 6.29 X10^3/uL (2.7-7.7); Platelet Count 240 K/mm3 (150-450); RBC Distribution Width CV 13.7 % (11.6-14.6); RBC Distribution Width SD 44.7 fl (35.1-43.9); Red Blood Count 5.37 M/mm3 (4.6-6.2); White Blood Count 9.2 K/mm3 (4.4-11.0)
--- NOTE | 2023-12-23 04:45 | EX.ED.DYSGE1 ---
HPI <Dr. Darron Troncoso MD - Last Filed: 12/23/23 12:57> History of Present Illness Chief Complaint: Other, Pain/Inj Detail of Chief Complaint: Low anterior midline abdominal pain as well as low back pain. Informant: patient and spouse/S.O. Onset/Context/Timing Onset: Today Context: Sudden Onset Timing: Continuous Quality: Pain worse anteriorly versus posteriorly Location: Previously described Current Severity: Severe Maximum Severity: Severe Worsened by: Movement Relieved by: Nothing Associated Symptoms Associated Symptoms: Urgency and minimal urine output Narrative Narrative: Patient is a 63-year-old male. He has history of chronic low back pain. The low back pain was worse after lifting a heavy object. The abdominal pain started abruptly. He reports decreased urine output and urgency. The back pain radiates down his leg and he states his left foot and right foot to a lesser extent feels spongy. He did have a bowel movement this morning. He states there was no altered sensation when he wiped. He denies foot drop. He has not gone up or down any steps to determine if he has quadricep weakness. He denies symptoms of claudication. He denies fever, chills or night sweats. He denies recent dental procedure or any type of procedure. He has no history of renal or ureterolithiasis. Patient has a past history of low back pain, nicotine dependence, chronic myeloid leukemia, atherosclerotic heart disease, essential primary hypertension, hyperlipidemia. He denies leg swelling, discoloration. Does complain of leg pain posterior left thigh. Prior similar symptoms: No Recent Illness/Hospitalization: No PFSH <Dr. Darron Troncoso MD - Last Filed: 12/23/23 12:57> [facility] Medical History Low back pain 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, right Tobacco use disorder, continuous Encounter for screening for malignant neoplasm of lung in current smoker with 30 pack year history or greater Pneumonia Fatigue Near syncope Fracture of great toe, right, open Unspecified injury of right foot, sequela Leukocytosis 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) History of ST elevation myocardial infarction (STEMI) (01/20/17) Hyperlipidemia Essential (primary) hypertension Nicotine dependence Atherosclerosis of coronary artery of ruby heart without angina pectoris Obesity (BMI 30.0-34.9) Hiatal hernia with GERD History of back problems Home Medications ?Medication ?Instructions ?Recorded ?Last Taken ?Type aspirin 81 mg tablet,delayed 81 mg PO DAILY 09/02/18 04/12/20 History release carvedilol 6.25 mg tablet 6.25 mg PO BID 09/02/18 04/12/20 History cholecalciferol (vitamin D3) 25 1,000 unit PO DAILY 09/02/18 04/12/20 History mcg (1,000 unit) capsule ramipril 2.5 mg capsule 2.5 mg PO DAILY 09/02/18 04/12/20 History atorvastatin 80 mg tablet 80 mg PO QHS 12/15/19 04/12/20 History omega 3-dha 60 mg-epa 90 mg-fish 1 cap PO DAILY 05/12/20 Unknown History oil 500 mg capsule, delayed release vitamin E 200 unit capsule 200 unit PO DAILY 08/25/20 Unknown History ascorbic acid (vitamin C) 500 mg 500 mg PO Q12H 09/06/22 Unknown History capsule,extended release albuterol sulfate 90 mcg/actuation 2 puff inhalation Q4H PRN 06/26/23 Unknown Rx aerosol inhaler shortness of breath or wheezing #8.5 grams fluticasone fur. 100 mcg-umeclid 1 inh inhalation Q24H #60 ea 06/26/23 Unknown Rx 62.5 mcg-vilant 25 mcg inhalat.powder (Trelegy Ellipta) sulfamethoxazole 800 1 tab PO .COMPLEX #36 tabs 08/22/23 Unknown Rx mg-trimethoprim 160 mg tablet (Bactrim DS) bosutinib 100 mg tablet 400 mg PO DAILY 11/06/23 Unknown History ondansetron HCl 8 mg tablet 8 mg PO Q8H PRN PRN Nausea/Emesis 11/20/23 Unknown Rx #30 tabs Allergy/AdvReac Type Severity Reaction Status Date / Time No Known Allergies Allergy Verified 12/23/23 03:40 Family History Father Colon cancer Diabetes Heart disease Hypertension CAD (coronary artery disease) Sister Breast cancer Mother CAD (coronary artery disease) Hypertension Heart disease Surgical History History of bone marrow biopsy (09/23/20) History of bilateral inguinal hernia repair (08/2018) Status post laparoscopic Donovan fundoplication (10/15/18) History of coronary artery stent placement (01/20/17) Surgical History no surgical history no surgical history Social History household members: spouse Smoking Status: Current every day smoker tobacco type: cigarettes Tobacco: How many years used: 40 Electronic Cigarette Use: not used second hand exposure: No quit status: considering quitting alcohol intake: current alcohol intake frequency: a few times a week Alcohol type: beer substance use type: does not use well-balanced diet: about half the time uyen/sikhism: Hoahaoism seatbelt use: always do you feel safe at home: Yes ROS <Dr. Darron Troncoso MD - Last Filed: 12/23/23 12:57> ROS ED Constitutional Constitutional ED: Denies chills, fever(s), subjective, sweats or weight loss Eyes Eyes: Denies blurry vision or change in vision ENT ENT ED: Denies rhinorrhea or sore throat Cardiovascular Cardiovascular: Denies chest pain, orthopnea, palpitations or paroxysmal nocturnal dyspnea Respiratory/Chest Respiratory/Chest: Denies cough, dyspnea, dyspnea on exertion, orthopnea or paroxysmal nocturnal dyspnea Gastrointestinal Gastrointestinal: Reports abdominal pain; Denies constipation, diarrhea, melena, nausea or vomiting Genitourinary Genitourinary ED: Reports urinary frequency; Denies dysuria or hematuria Musculoskeletal Musculoskeletal: Reports back pain; Denies arthralgias, myalgias or neck pain Integumentary Denies rash Neurologic Neurologic: Reports paresthesias; Denies weakness Endocrine Endocrinology: Denies cold intolerance or heat intolerance Hematologic/Lymphatic Hematologic/Lymphatic: Reports systems reviewed and no addt'l complaints, except as documented EXAM <Dr. Darron Troncoso MD - Last Filed: 12/23/23 12:57> Physical Exam Const Vital Signs: 12/23/23 03:39 12/23/23 03:42 12/23/23 04:39 Temperature 98 F Temperature Source Temporal Pulse Rate 69 60 Respiratory Rate 16 15 Respiratory Effort Normal Respiratory Pattern Normal Blood Pressure 189/105 H 171/90 H Blood Pressure Mean 133 117 Pulse Ox 97 98 Oxygen Delivery Method Room Air 12/23/23 05:00 12/23/23 06:00 12/23/23 07:00 Temperature Temperature Source Pulse Rate 61 64 61 Respiratory Rate 17 16 18 Respiratory Effort Respiratory Pattern Blood Pressure 159/101 H 169/90 H 158/85 H Blood Pressure Mean 120 116 109 Pulse Ox 98 98 97 Oxygen Delivery Method Room Air Room Air Room Air 12/23/23 08:00 12/23/23 08:38 12/23/23 09:00 Temperature Temperature Source Pulse Rate 58 L 56 L 55 L Respiratory Rate 16 18 18 Respiratory Effort Respiratory Pattern Blood Pressure 159/72 H 164/93 H 114/72 Blood Pressure Mean 101 116 86 Pulse Ox 97 97 98 Oxygen Delivery Method Room Air Room Air Room Air Positive well nourished and well developed Constitutional Narrative: BMI is 31.2. Blood pressure is elevated. He is in obvious discomfort. He is holding his abdomen. Patient was redirected many times because he did not answer question or do what was asked for me to evaluate him. He was informed that he needs to listen to the question and answer or perform the activity I am requesting to determine if he needs an emergent MRI or not. General Appearance ED: well developed; Negative for cyanotic, diaphoretic or pallor HEENT Reports moist mucous membranes HEENT Narrative: Head is atraumatic normocephalic. Ears normal. Eyes PERRL and EOMs intact bilaterally General Eye ED: Negative for pale conjunctiva or scleral icterus Neck no lymphadenopathy, supple and no JVD Chest Wall inspection of chest normal and palpation of chest normal Resp normal respiratory effort and clear to auscultation bilaterally Cardio regular rate, regular rhythm, S1 normal heart sound, S2 normal heart sound and no murmurs GI no masses; Negative for normal to inspection, nondistended, normoactive bowel sounds, non-tender, non-distended or hepatosplenomegaly GI Narrative: Rectal tone is decreased. He is able to squeeze down my finger. Positive anal wink noted. There is no evidence of right or left inguinal lymphadenopathy or inguinal hernia. Prostate was normal size and nontender. Prostate was not boggy or warm. Inspection: abdominal distention Auscultation: hypoactive bowel sounds Palpation: tender suprapubic; Negative for soft, splenomegaly, mass or rebound tenderness present Rectal Exam: Negative for normal sphincter tone Narrative: Testes descended bilaterally. No erythema or swelling of the scrotum. Back/Spine no CVA tenderness Extremity normal to inspection General Extremety ED: Negative for edema or tenderness General Extremity: Negative for edema Neuro oriented x3, CN's II-XII intact bilaterally and no sensory deficits noted Neuro Narrative: EHL is intact bilaterally. 5 out of 5 strength with plantar dorsiflexion of his foot. Patella and ankle reflex are 2+ and symmetric. Sensation is abnormal left foot. It is not along a dermatomal pattern. Sensorium / Orientation: alert Motor Exam: strength 5/5 throughout Psych mental status grossly normal Skin no rashes or lesions noted, no wounds and skin turgor normal General Skin Exam: Negative for jaundice or pallor <Dr. Jamaal Early DO - Last Filed: 12/23/23 08:49> Physical Exam Const Vital Signs: 12/23/23 03:39 12/23/23 03:42 12/23/23 04:39 Temperature 98 F Temperature Source Temporal Pulse Rate 69 60 Respiratory Rate 16 15 Respiratory Effort Normal Respiratory Pattern Normal Blood Pressure 189/105 H 171/90 H Blood Pressure Mean 133 117 Pulse Ox 97 98 Oxygen Delivery Method Room Air 12/23/23 05:00 12/23/23 06:00 12/23/23 07:00 Temperature Temperature Source Pulse Rate 61 64 61 Respiratory Rate 17 16 18 Respiratory Effort Respiratory Pattern Blood Pressure 159/101 H 169/90 H 158/85 H Blood Pressure Mean 120 116 109 Pulse Ox 98 98 97 Oxygen Delivery Method Room Air Room Air Room Air 12/23/23 08:00 12/23/23 08:38 12/23/23 09:00 Temperature Temperature Source Pulse Rate 58 L 56 L 55 L Respiratory Rate 16 18 18 Respiratory Effort Respiratory Pattern Blood Pressure 159/72 H 164/93 H 114/72 Blood Pressure Mean 101 116 86 Pulse Ox 97 97 98 Oxygen Delivery Method Room Air Room Air Room Air [facility] <Dr. Darron Troncoso MD - Last Filed: 12/23/23 12:57> [facility] Narrative Medical decision making narrative: Differential diagnosis would include urinary retention, atypical presentation for ureteral lithiasis, initially concern for cauda equina based on his symptoms however with positive rectal tone even though diminished and positive anal wink with no altered sensation along L3-S1 dermatome and symmetric reflexes doubt cauda equina, spontaneous epidural hematoma and no historic concern for epidural abscess. Bladder scan was not working well and could not get a reading. Alexandre was placed because there was a concern for urinary retention. Only 100 cc of urine drained. Lab Data Attestation: I reviewed the patient's lab results. Lab results narrative: White count is normal with normal differential. Basic metabolic panel is remarkable slight elevation in glucose of 110. CO2 anion gap is normal. Urinalysis reveals a spec gravity of 1.020. Macro is positive for blood and leukoesterase. Micro reveals 5-10 RBCs with 25-50 WBCs and no bacteria seen. This may represent a false reading since he reports going to the bathroom frequently and only small amounts. Labs: Laboratory Results - last 24 hr 12/23/23 12/23/23 03:46 04:05 WBC 9.2 RBC 5.37 Hgb 15.8 Hct 48.1 MCV 89.6 MCH 29.4 MCHC 32.8 RDW Std Deviation 44.7 H RDW Coeff of Zayra 13.7 Plt Count 240 MPV 10.7 Immature Gran % (Auto) 0.200 Neut % (Auto) 68.0 Lymph % (Auto) 18.2 L Winn % (Auto) 8.8 Eos % (Auto) 3.8 Baso % (Auto) 1.0 Absolute Neuts (auto) 6.3 Absolute Lymphs (auto) 1.68 Nucleated RBC % 0 Sodium 138 Potassium 4.8 Chloride 106 Carbon Dioxide 24.0 Anion Gap 8 BUN 14 Creatinine 1.15 Estim Creat Clear Calc 82.95 Est GFR (MDRD) Af Amer 83 Est GFR (MDRD) Non-Af 68 BUN/Creatinine Ratio 12.2 Glucose 110 H Calcium 9.6 Urine Color Yellow Urine Clarity Clear Urine pH 6.0 Ur Specific Maurice 1.020 Urine Protein 30 H Urine Glucose (UA) Normal Urine Ketones Negative Urine Occult Blood 250 H Urine Nitrite Negative Urine Bilirubin Negative Urine Urobilinogen Normal Ur Leukocyte Esterase 25 H Urine RBC 5-10 SEEN Urine WBC 25-50 SEEN Ur Squamous Epith Cells 0-5 SEEN Urine Bacteria 0 SEEN Urine Mucus 0 SEEN Radiography Diagnostic Testing: Clinical Impression(s) from Imaging Studies Abdomen/Pelvis CT 12/23/23 06:06 IMPRESSION: 1. Distal left ureteral calculus with mild left hydroureteronephrosis. 2. Bilateral nephrolithiasis. 3. Cholelithiasis. 4. Moderate right pleural effusion and dependent right lower lobe atelectasis similar to prior CT chest. Uncertain etiology. Electronically Signed: Yoli Albrecht MD at 7:34 EDT , CT reveals a Alexandre in the bladder. There is a 4 to 5 mm distal left ureteral stone noted. There is evidence of hydroureteronephrosis on the left. Awaiting formal read by radiologist. technical trainer informed me that he is still having significant pain. He was ordered IV Dilaudid. Suspect patient will need admission for pain management. Dr. Taylor is on-call for December 22. Treatment and Re-Evaluation :: Patient was reassessed. He reports significant improvement but is still having pain. Patient has been medicated with morphine x 2. Blood pressure has decreased. Patient has a negative straight leg test right and left. EHL is intact. 5/5 strength with plantar dorsiflexion of the foot. DP pulses palpable bilaterally. Capillary refill is normal. Sensation is not normal left foot however is not in a dermatomal pattern. There is a reproducible component. His symptoms are not consistent with a herniated disc. Since he reports radiation to the suprapubic area this could represent an atypical presentation for ureterolithiasis. Also need to consider musculoskeletal since he lifted a washer and dryer out of a truck yesterday afternoon. Add [id number] I was informed by nurse that he is vomiting. Will order Zofran for his nausea and vomiting. A CT of the abdomen pelvis was ordered. Comments:: Patient has received a total of 16 mg of morphine and 1 mg of Dilaudid and still experiencing pain. If he is still having pain at [address] Taylor who is on-call for urology for admission. <Dr. Jamaal Early, DO - Last Filed: 12/23/23 08:49> [facility] Lab Data Lab results narrative: White count is normal with normal differential. Basic metabolic panel is remarkable slight elevation in glucose of 110. CO2 anion gap is normal. Urinalysis reveals a spec gravity of 1.020. Macro is positive for blood and leukoesterase. Micro reveals 5-10 RBCs with 25-50 WBCs and no bacteria seen. This may represent a false reading since he reports going to the bathroom frequently and only small amounts. Dr. Early dictating: CT of the abdomen pelvis without contrast shows a left distal ureteral calculus with left hydronephrosis. Patient required another dose of Dilaudid because he still in pain. Discussed with urology that he had been treated with 4 doses of morphine and 2 doses of Dilaudid and he still in pain. Dr. Taylor states that he will admit the patient to his service. Labs: Laboratory Results - last 24 hr 12/23/23 12/23/23 03:46 04:05 WBC 9.2 RBC 5.37 Hgb 15.8 Hct 48.1 MCV 89.6 MCH 29.4 MCHC 32.8 RDW Std Deviation 44.7 H RDW Coeff of Zayra 13.7 Plt Count 240 MPV 10.7 Immature Gran % (Auto) 0.200 Neut % (Auto) 68.0 Lymph % (Auto) 18.2 L Winn % (Auto) 8.8 Eos % (Auto) 3.8 Baso % (Auto) 1.0 Absolute Neuts (auto) 6.3 Absolute Lymphs (auto) 1.68 Nucleated RBC % 0 Sodium 138 Potassium 4.8 Chloride 106 Carbon Dioxide 24.0 Anion Gap 8 BUN 14 Creatinine 1.15 Estim Creat Clear Calc 82.95 Est GFR (MDRD) Af Amer 83 Est GFR (MDRD) Non-Af 68 BUN/Creatinine Ratio 12.2 Glucose 110 H Calcium 9.6 Urine Color Yellow Urine Clarity Clear Urine pH 6.0 Ur Specific Maurice 1.020 Urine Protein 30 H Urine Glucose (UA) Normal Urine Ketones Negative Urine Occult Blood 250 H Urine Nitrite Negative Urine Bilirubin Negative Urine Urobilinogen Normal Ur Leukocyte Esterase 25 H Urine RBC 5-10 SEEN Urine WBC 25-50 SEEN Ur Squamous Epith Cells 0-5 SEEN Urine Bacteria 0 SEEN Urine Mucus 0 SEEN Radiography Diagnostic Testing: Clinical Impression(s) from Imaging Studies Abdomen/Pelvis CT 12/23/23 06:06 IMPRESSION: 1. Distal left ureteral calculus with mild left hydroureteronephrosis. 2. Bilateral nephrolithiasis. 3. Cholelithiasis. 4. Moderate right pleural effusion and dependent right lower lobe atelectasis similar to prior CT chest. Uncertain etiology. Electronically Signed: Yoli Albrecht MD at 7:34 EDT , Discharge Plan Dx/Rx/DC Orders Clinical Impression: Hydronephrosis with urinary obstruction due to ureteral calculus, Kidney stone, 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, right, Elevated blood pressure reading with diagnosis of hypertension, Acute lumbar myofascial strain Disposition Disposition: Acute Care Hospital [facility] Discharge Date/Time: 12/23/23 09:21
[2023-12-23 04:58] LABS: Glucose, Dipstick Normal (Normal); Ketone-Dipstick Negative (Negative); Leukocyte Esterase-Dipstick 25 /ul (Negative); Nitrite-Dipstick Negative (Negative); Occult Blood-Urine 250 /ul (Negative); Protein-Dipstick 30 mg/dl (Negative); Urine Bilirubin Dipstick Negative (Negative); Urine Urobilinogen Normal (Normal)
[2023-12-23 05:03] LABS: Anion Gap 8 (5-15); BUN 14 mg/dL (7-18); BUN/Creat Ratio 12.2 RATIO (10-20); Calcium,Total 9.6 mg/dL (8.5-10.1); Chloride 106 mmol/L (98-107); Creatinine, Serum 1.15 mg/dL (0.70-1.30); EST Glomerular Filtration Rate 68 mL/min (>60); Est Glom Filt Rate - Afr Amer 83 mL/min (>60); Estimated Creatinine Clearance 82.95 ml/min; Glucose 110 mg/dL (74-106); Potassium 4.8 mmol/L (3.5-5.1); Sodium Level 138 mmol/L (136-145)
[2023-12-23] MEDS: Morphine 4 MG/ML Syringe IV ×2 (05:04→05:45)
[2023-12-23] MEDS: 0.9% Normal Saline (1000mL) 1,000 ML 150 ML IV (05:05)
[2023-12-23 05:09] LABS: Color, Urine Yellow (Yellow); Urine Clarity Clear (Clear)
[2023-12-23 05:10] LABS: Red Blood Cells-Urine 5-10 SEEN /hpf (0-5); Squamous Epithelial Cells - UA 0-5 SEEN /hpf (0-5); White Blood Cells 25-50 SEEN /hpf (0-5)
--- NOTE | 2023-12-23 06:06 | CT_ITS ---
EXAM: CT Abdomen And Pelvis W/O Contrast Injection HISTORY: Left flank pain TECHNIQUE: Routine protocol CT abdomen and pelvis. IV Contrast: None.. Oral contrast: None. RADIATION DOSAGE (If Supplied By Facility): CTDIvol = ( 15.37 ) mGy, DLP = ( 783.51 ) mGycm Individualized dose optimization techniques were used for this CT. COMPARISON: CT chest 06/05/2023. LIMITATIONS: None. FINDINGS: LOWER CHEST: Moderate right pleural effusion with mild compressive atelectasis right lower lobe similar to prior CT chest. Coronary artery calcifications. Small pericardial effusion. LIVER: Grossly unremarkable. GALLBLADDER AND BILIARY TREE: Gallstones in the gallbladder. PANCREAS: Grossly unremarkable. SPLEEN: Grossly unremarkable. ADRENAL GLANDS: Grossly unremarkable. KIDNEYS AND URETERS: There is a 4 mm calculus in the distal left ureter proximal to the ureterovesical junction. The left ureter is dilated with mild left hydronephrosis and perinephric stranding. Several calculi in both kidneys. No hydronephrosis on the right. PERITONEUM: No free air. No free fluid. BOWEL: No bowel obstruction. APPENDIX: Visualized and unremarkable. No evidence of acute appendicitis. VESSELS: Abdominal aorta is normal caliber. REPRODUCTIVE ORGANS: Grossly unremarkable URINARY BLADDER: Decompressed with Alexandre catheter in place.. ABDOMINAL WALL: Unremarkable. BONES: No acute abnormalities. Degenerative changes in the lumbar spine CT/Abdomen/Pelvis without Cont IMPRESSION: 1. Distal left ureteral calculus with mild left hydroureteronephrosis. 2. Bilateral nephrolithiasis. 3. Cholelithiasis. 4. Moderate right pleural effusion and dependent right lower lobe atelectasis similar to prior CT chest. Uncertain etiology. Electronically Signed: Yoli Albrecht MD at 7:34 EDT ,
[2023-12-23] MEDS: HYDROmorphone 1 MG/ML Syringe IV (06:55)
[2023-12-23] MEDS: HYDROmorphone 0.5 MG/0.5 ML SYRINGE IV (08:36)
--- NOTE | 2023-12-23 10:24 | PCM.HP.STD ---
HPI - General General Date of Admission: 12/23/23 Date of Service: 12/23/23 Chief Complaint: Left kidney stone obstructive HPI Narrative EDNA THOMAS, is a 63 M who presents to the emergency room with obstructing stone in the distal left ureter patient will be admitted for pain control we will see if the schedules available to perform left ureteroscopy laser lithotripsy and stone removal and stent call the OR and put him on the potential for scheduled for today if available if not want to do it tomorrow. 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) History of ST elevation myocardial infarction (STEMI) (01/20/17) Hyperlipidemia Essential (primary) hypertension Nicotine dependence Atherosclerosis of coronary artery of [place] heart without angina pectoris Obesity (BMI 30.0-34.9) Hiatal hernia with GERD History of back problems Home Medications ?Medication ?Instructions ?Recorded ?Last Taken ?Type aspirin 81 mg tablet,delayed 81 mg PO DAILY 09/02/18 04/12/20 History release carvedilol 6.25 mg tablet 6.25 mg PO BID 09/02/18 04/12/20 History cholecalciferol (vitamin D3) 25 1,000 unit PO DAILY 09/02/18 04/12/20 History mcg (1,000 unit) capsule ramipril 2.5 mg capsule 2.5 mg PO DAILY 09/02/18 04/12/20 History atorvastatin 80 mg tablet 80 mg PO QHS 12/15/19 04/12/20 History omega 3-dha 60 mg-epa 90 mg-fish 1 cap PO DAILY 05/12/20 Unknown History oil 500 mg capsule, delayed release vitamin E 200 unit capsule 200 unit PO DAILY 08/25/20 Unknown History ascorbic acid (vitamin C) 500 mg 500 mg PO Q12H 09/06/22 Unknown History capsule,extended release albuterol sulfate 90 mcg/actuation 2 puff inhalation Q4H PRN 06/26/23 Unknown Rx aerosol inhaler shortness of breath or wheezing #8.5 grams fluticasone fur. 100 mcg-umeclid 1 inh inhalation Q24H #60 ea 06/26/23 Unknown Rx 62.5 mcg-vilant 25 mcg inhalat.powder (Trelegy Ellipta) sulfamethoxazole 800 1 tab PO .COMPLEX #36 tabs 08/22/23 Unknown Rx mg-trimethoprim 160 mg tablet (Bactrim DS) bosutinib 100 mg tablet 400 mg PO DAILY 11/06/23 Unknown History ondansetron HCl 8 mg tablet 8 mg PO Q8H PRN PRN Nausea/Emesis 11/20/23 Unknown Rx #30 tabs Allergy/AdvReac Type Severity Reaction Status Date / Time No Known Allergies Allergy Verified 12/23/23 03:40 Family History Father Colon cancer Diabetes Heart disease Hypertension CAD (coronary artery disease) Sister Breast cancer Mother CAD (coronary artery disease) Hypertension Heart disease Surgical History History of bone marrow biopsy (04/13/20) History of bilateral inguinal hernia repair (08/2018) Status post laparoscopic Donovan fundoplication (10/15/18) History of coronary artery stent placement (01/20/17) Surgical History no surgical history Social History household members: spouse Smoking Status: Current every day smoker tobacco type: cigarettes Tobacco: How many years used: 40 Electronic Cigarette Use: not used second hand exposure: No quit status: considering quitting alcohol intake: current alcohol intake frequency: a few times a week Alcohol type: beer substance use type: does not use well-balanced diet: about half the time uyen/anabaptist: Pentecostalism seatbelt use: always do you feel safe at home: Yes Vital Signs Vital Signs Vital Signs: 12/23/23 03:39 12/23/23 03:42 12/23/23 04:39 Temperature 98 F Temperature Source Temporal Pulse Rate 69 60 Respiratory Rate 16 15 Respiratory Effort Normal Respiratory Pattern Normal Blood Pressure 189/105 H 171/90 H Blood Pressure Mean 133 117 Pulse Ox 97 98 Oxygen Delivery Method Room Air 12/23/23 05:00 12/23/23 06:00 12/23/23 07:00 Temperature Temperature Source Pulse Rate 61 64 61 Respiratory Rate 17 16 18 Respiratory Effort Respiratory Pattern Blood Pressure 159/101 H 169/90 H 158/85 H Blood Pressure Mean 120 116 109 Pulse Ox 98 98 97 Oxygen Delivery Method Room Air Room Air Room Air 12/23/23 08:00 12/23/23 08:38 12/23/23 09:00 Temperature Temperature Source Pulse Rate 58 L 56 L 55 L Respiratory Rate 16 18 18 Respiratory Effort Respiratory Pattern Blood Pressure 159/72 H 164/93 H 114/72 Blood Pressure Mean 101 116 86 Pulse Ox 97 97 98 Oxygen Delivery Method Room Air Room Air Room Air 12/23/23 09:14 Temperature 98.2 F Temperature Source Pulse Rate 58 L Respiratory Rate 18 Respiratory Effort Respiratory Pattern Blood Pressure 120/72 Blood Pressure Mean 88 Pulse Ox 98 Oxygen Delivery Method Weight Weight: 106.594 kg Body Mass Index (BMI) 31.8 Physical Exam Const alert and oriented x3 General Appearance: cooperative HEENT normocephalic, head/scalp atraumatic, EAC's normal and TM's normal bilaterally Eyes PERRL and EOMs intact bilaterally Pupil: sluggish Neck no lymphadenopathy, supple and no JVD General: trachea midline Lymph Lymphatic: no lymphadenopathy noted, lymphedema and lymphadenopathy Resp normal respiratory effort, normal air movement and clear to auscultation bilaterally Cardio regular rate, regular rhythm and peripheral pulses 2+ throughout GI soft to palpation, non-tender and non-distended Extremity normal capillary refill and no clubbing, cyanosis or edema General Extremity: no tenderness to palpation of joints or extremities Skin no rashes or lesions noted General Skin Exam: turgor normal Lesions: no lesions Rashes: no rashes Neuro CN's II-XII intact bilaterally Speech: speech normal Motor Exam: strength 5/5 throughout; Negative for general weakness Psych thought process normal, cooperative and affect normal Appearance: appropriate Results Medical Records Data Attestation: I reviewed the patient's medical records Lab / Micro Data Attestation: I reviewed the patient's lab results. 12/23/23 03:46 12/23/23 03:46 Labs: Laboratory Results - last 24 hr 12/23/23 03:46: WBC 9.2, RBC 5.37, Hgb 15.8, Hct 48.1, MCV 89.6, MCH 29.4, MCHC 32.8, RDW Std Deviation 44.7 H, RDW Coeff of [place] 13.7, Plt Count 240, MPV 10.7, Immature Gran % (Auto) 0.200, Neut % (Auto) 68.0, Lymph % (Auto) 18.2 L, [place] % (Auto) 8.8, Eos % (Auto) 3.8, Baso % (Auto) 1.0, Absolute Neuts (auto) 6.3, Absolute Lymphs (auto) 1.68, Nucleated RBC % 0, Sodium 138, Potassium 4.8, Chloride 106, Carbon Dioxide 24.0, Anion Gap 8, BUN 14, Creatinine 1.15, Estim Creat Clear Calc 82.95, Est GFR (MDRD) Af Amer 83, Est GFR (MDRD) Non-Af 68, BUN/Creatinine Ratio 12.2, Glucose 110 H, Calcium 9.6 12/23/23 04:05: Urine Color Yellow, Urine Clarity Clear, Urine pH 6.0, Ur Specific [place] 1.020, Urine Protein 30 H, Urine Glucose (UA) Normal, Urine Ketones Negative, Urine Occult Blood 250 H, Urine Nitrite Negative, Urine Bilirubin Negative, Urine Urobilinogen Normal, Ur Leukocyte Esterase 25 H, Urine RBC 5-10 SEEN, Urine WBC 25-50 SEEN, Ur Squamous Epith Cells 0-5 SEEN, Urine Bacteria 0 SEEN, Urine Mucus 0 SEEN Imaging Radiology Impression Abdomen/Pelvis CT 12/23/23 06:06 IMPRESSION: 1. Distal left ureteral calculus with mild left hydroureteronephrosis. 2. Bilateral nephrolithiasis. 3. Cholelithiasis. 4. Moderate right pleural effusion and dependent right lower lobe atelectasis similar to prior CT chest. Uncertain etiology. Electronically Signed: Yoli Albrecht MD at 7:34 EDT , Assessment & Plan Assessment/Plan (1) Kidney stone: PLAN: Plan for plan for left ureteroscopy laser of stone and stent n.p.o. at on the schedule for today possible intervention if availability in the OR
[2023-12-23] MEDS: oxyCODONE 5 MG Tablet PO (10:43)
[2023-12-23] MEDS: Ketorolac 15 MG/ML Vial IV (10:43)
[2023-12-23] MEDS: 0.9% Normal Saline (1000mL) 1,000 ML 125 ML IV (13:56)
[2023-12-23] MEDS: Cefazolin 2 GM in 0.9% Normal Saline (100mL Bag) 100 ML IV (16:24)
--- NOTE | 2023-12-23 16:28 | DCINST_ITS ---
Discharge Instructions Diet Discharge Diet: No restrictions, Light diet - advance as tolerated and Soft diet Activity Discharge Activity: Return to Normal Activity Return to work on:: 12/24/23 May shower in (days): 1 Weight Bearing Status: Weight bearing as tolerated Follow Up Care Please Follow Up With: Rich Taylor MD When: call [phone] for appt next week to remove stent Test Results: Test results from this visit will be discussed in further detail at your follow- up appointment, if applicable. Discharge Plan Admission Admit Date/Time: 12/23/23 14:58 Primary Reason for Your Visit: left kidney stone Attending Provider: Rich Taylor Primary Care Provider: Jocelin Luo Discharge Orders/Prescriptions Prescriptions: New ibuprofen 600 mg tablet 600 mg PO Q6H PRN (Reason: fever or pain) Qty: 20 0RF tamsulosin [Flomax] 0.4 mg capsule 0.4 mg PO DAILY Qty: 10 0RF phenazopyridine [Pyridium] 100 mg tablet 100 mg PO TID Qty: 15 0RF ciprofloxacin HCl 500 mg tablet 500 mg PO BID Qty: 6 0RF Continued carvedilol 6.25 mg tablet 6.25 mg PO BID ramipril 2.5 mg capsule 2.5 mg PO DAILY aspirin 81 mg tablet,delayed release (DR/EC) 81 mg PO DAILY cholecalciferol (vitamin D3) 1,000 unit capsule 1,000 unit PO DAILY atorvastatin 80 mg tablet 80 mg PO QHS bosutinib 100 mg tablet 400 mg PO DAILY ascorbic acid (vitamin C) 500 mg Capsule, Extended Release 500 mg PO Q12H albuterol sulfate 90 mcg/actuation HFA aerosol inhaler 2 puff inhalation Q4H PRN (Reason: shortness of breath or wheezing) Qty: 8.5 6RF Rx Instructions: administer with spacer Trelegy Ellipta 100-62.5-25 mcg blister with device 1 inh INHALATION Q24H Qty: 60 11RF omega 5-czd-zxx-fish oil 500 MG capsule,delayed release(DR/EC) 1 cap PO DAILY vitamin E 200 UNIT capsule 200 unit PO DAILY sulfamethoxazole-trimethoprim [Bactrim DS] 800-160 mg tablet 1 tab PO .COMPLEX Qty: 36 1RF Rx Instructions: 1 TAB orally daily on Mondays, wednesdays and Fridays only; ondansetron HCl 8 mg tablet 8 mg PO Q8H PRN PRN (Reason: Nausea/Emesis) Qty: 30 0RF Referrals / Follow Up: Rich Taylor MD [Med Staff - Active Staff] - Jocelin Luo DO [Primary Care Provider] - Disposition Disposition (needs filled in before D/C Order can be placed): Home, Self Care
--- NOTE | 2023-12-23 16:47 | PCM.OPRPT ---
Report of Operation Date of Procedure: 12/23/23 Pre-Operative Diagnosis: Obstructing left ureteral calculi with severe colic Post-Operative Diagnosis: The same Surgery/Procedure Performed:: Cystoscopy balloon dilation of the left ureter, left ureteroscopy laser lithotripsy of stone. No stent Description of Surgical Findings:: 63-year-old male presented to hospital with severe renal colic from a stone in the distal left ureter he was taken back to the operating room for smooth induction of general anesthesia he was placed in dorsolithotomy position. The Alexandre catheter was removed penis and testicles were prepped and draped in usual sterile fashion went in the bladder with a 21 [place] rigid cystourethroscope I then cannulated the left ureteral orifice with a Glidewire I could feel the wire go past the stone and then I advanced a 12 [place] balloon dilator balloon dilated the distal left ureter. Left the wire in place next to the wire went in with a offset SlimLine ureteroscope was able to get to the ureter quite easily and then found a 6 mm stone in the distal left ureter I used a Olympus high power laser with a 200 ?m laser fiber and the stone was dusted completely into the tiny little pieces all the pieces and floated into the bladder and then came out of the ureter there was very minimal trauma to the ureter so I decided not to leave the stent in since there is no remaining fragments in the ureter and the ureter was very minimally involved. Bladder was drained anesthetic was reversed see the patient back for follow-up in 6 weeks for checkup. Surgeon: Rich Taylor Type of Anesthesia: General Drains: no stent Estimated Blood Loss (mL): 0 Admit VTE Documentation VTE Present on Admission: No VTE Mechan Device Prophylaxis: SCD's VTE Pharm Prophylaxis ordered?: No
== END 2023-12-23 16:25 | disposition home or self-care (01) ==
LOC: ED 04:05 → PCU 10:27
PROVIDERS: Admitting Provider Urology; Emergency Provider Emergency Medicine; PCP Internal Medicine; Visit Provider Urology
PROC: 0TJ98ZZ Inspection of Ureter, Via Natural or Artificial Opening Endoscopic (ICD-10-PCS; CPT 52352; principal; 2023-12-23 15:50)
DX: N13.2 Hydronephrosis with renal and ureteral calculous obstruction (principal); I10 Essential (primary) hypertension; E78.5 Hyperlipidemia, unspecified; Z79.82 Long term (current) use of aspirin; E66.9 Obesity, unspecified; I25.10 Atherosclerotic heart disease of native coronary artery without angina pectoris; F17.210 Nicotine dependence, cigarettes, uncomplicated; Z68.31 Body mass index [BMI] 31.0-31.9, adult; M79.605 Pain in left leg; Z79.899 Other long term (current) drug therapy; K21.9 Gastro-esophageal reflux disease without esophagitis; K44.9 Diaphragmatic hernia without obstruction or gangrene; R06.02 Shortness of breath
CPT/HCPCS: 52353; 52341; 00918; 51702; 74176; 80048; 81001; 85025; 87086; 96361; 96374; 96375; 96376; 97802; 99221; 99285; J7030; A4216; C1769; G0378; J2405

== ENCOUNTER → 2024-01-21 | Outpatient (CLI) | payer MEDICARE, SELFPAY ==
[2024-01-21 10:06] LABS: Absolute Lymphocyte Count 1.17 X10^3/uL (0.83-4.51); Absolute Neutrophil Count 4.9 X10^3/uL (2.0-7.7); Basophil# 0.07 X10^3/uL; Eosinophil# 0.41 X10^3/uL; Eosinophils% 5.6 % (0-5); Hematocrit 45.7 % (40-54); Lymphocyte # 1.17 X10^3/ul (0.83-4.51); Mean Corp Hgb Conc 32.8 g/dL (32-36); Mean Corpuscular Hgb 29.3 pg (27.0-32.0); Mean Corpuscular Volume 89.3 fL (80-94); Mean Platelet Vol. 10.5 fl (6.2-12.0); Monocyte# 0.74 X10^3/uL; Monocyte% 10.1 % (0-10); NRBC Flagged by Analyzer 0 % (0-5); Neutrophil # 4.91 X10^3/uL (2.7-7.7); Platelet Count 239 K/mm3 (150-450); RBC Distribution Width CV 13.4 % (11.6-14.6); RBC Distribution Width SD 43.8 fl (35.1-43.9); Red Blood Count 5.12 M/mm3 (4.6-6.2); White Blood Count 7.3 K/mm3 (4.4-11.0)
[2024-01-21 10:33] LABS: ALB/GLOB Ratio 1.1 RATIO (0.9-2.4); AST(SGOT) 21 U/L (15-37); Alanine Aminotransfer ALT/SGPT 28 U/L (16-61); Albumin, Serum 3.9 g/dL (3.2-5.0); Alkaline Phosphatase 78 U/L (45-117); Anion Gap 6 (5-15); BUN 12 mg/dL (7-18); BUN/Creat Ratio 12.9 RATIO (10-20); Calcium,Total 9.4 mg/dL (8.5-10.1); Chloride 104 mmol/L (98-107); Creatinine, Serum 0.93 mg/dL (0.70-1.30); EST Glomerular Filtration Rate 87 mL/min (>60); Est Glom Filt Rate - Afr Amer 106 mL/min (>60); Globulin 3.7 g/dL (2.2-4.2); Glucose 86 mg/dL (74-106); Protein, Total 7.6 g/dL (6.4-8.2); Sodium Level 138 mmol/L (136-145)
== END | disposition home or self-care (01) ==
PROVIDERS: Internal Medicine Hematology & Oncology; PCP Internal Medicine; Referring Provider Urology; Visit Provider Urology
DX: Z12.5 Encounter for screening for malignant neoplasm of prostate (principal); C92.10 Chronic myeloid leukemia, BCR/ABL-positive, not having achieved remission
CPT/HCPCS: 80053; 84153; 85025; G0103

== ENCOUNTER → 2024-05-04 | Outpatient (CLI) | payer MEDICARE, SELFPAY ==
--- NOTE | 2024-05-04 12:43 | ECHOCSONC_ITS ---
Reason For Study: CHEMOTHERAPY Procedure This was a 2D Doppler, Color Flow transthoracic echocardiogram. Myocardial strain analysis was performed in this exam to aid in the assessment of cardiac function. The study was technically difficult. Contrast injection was performed. Exam performed in department. Left Ventricle Normal LV size. Left ventricular systolic function is normal. The left ventricular ejection fraction is 60 %. No regional wall motion abnormalities noted. Right Ventricle Normal RV size. Normal systolic function. Atria Normal left atrium. Normal right atrium. Mitral Valve Normal mitral valve. Tricuspid Valve Normal tricuspid valve. Mild tricuspid valve insufficiency. Pulmonary artery systolic pressure is 30 mmHg. Aortic Valve Trisinus/trileaflet aortic valve. Pulmonic Valve Normal pulmonic valve. Great Vessels Mildly dilated aortic root. The pulmonary artery is normal size. Normal inferior vena cava. Pericardium/Pleural No pericardial effusion. Medication 22 gauge I.V. with prn adaptor inserted into left arm. Diluted definity 2ml given slow IV push to enhance endocardial definition. MMode/2D Measurements & Calculations LVIDd: 6.3 cm IVSd: 1.2 cm LVOT diam: 2.3 cm LVIDs: 2.9 cm LVPWd: 1.1 cm RVDd: 3.9 cm FS: 54.3 % LVOT area: 4.3 cm2 asc Aorta Diam: 3.7 cm LAV(MOD-bp): 47.2 ml LVAd ap4: 45.3 cm2 LAV(MOD-bp) Indexed: 20.5 ml/m2 LVLd ap4: 9.0 cm LAV(MOD-sp2): 53.3 ml EDV(MOD-sp4): 189.0 ml LAV(MOD-sp4): 41.3 ml EDV(sp4-el): 193.9 ml LVAs ap4: 25.2 cm2 LVLs ap4: 7.6 cm ESV(MOD-sp4): 71.9 ml ESV(sp4-el): 71.5 ml EF(MOD-sp4): 61.9 % EF(sp4-el): 63.1 % LVAd ap2: 52.1 cm2 SV(MOD-sp4): 117.0 ml SV(MOD-sp2): 121.4 ml LVLd ap2: 10.0 cm EDV(MOD-sp2): 218.1 ml EDV(sp2-el): 229.3 ml LVAs ap2: 32.9 cm2 LVLs ap2: 8.8 cm ESV(MOD-sp2): 96.7 ml ESV(sp2-el): 103.8 ml EF(MOD-sp2): 55.7 % SV(sp4-el): 122.3 ml Ao sinus diam: 3.[address] Junction: 3.2 cm LA dimension(2D): 4.4 cm LA A4 area: 16.5 cm2 RA A4 area: 18.7 cm2 TAPSE: 2.1 cm Time Measurements MV dec time: 0.25 sec Doppler Measurements & Calculations MV E max martin: 80.4 cm/sec Lat Peak E' Martin: 11.4 cm/sec Med Peak E' Martin: 6.4 cm/sec MV A max martin: 75.4 cm/sec E/E' lat: 7.0 E/E' med: 12.5 MV E/A: 1.1 MV dec slope: 318.3 cm/sec2 Ao V2 max: 155.4 cm/sec LV V1 max: 132.9 cm/sec Ao max P.7 mmHg LV V1 max P.1 mmHg Ao V2 mean: 106.8 cm/sec LV V1 mean P.2 mmHg Ao mean P.0 mmHg LV V1 mean: 81.3 cm/sec Ao V2 VTI: 28.9 cm LV V1 VTI: 27.6 cm AV (velocity ratio): 0.95 ISABELLE(I,D): 4.1 cm2 ISABELLE(V,D): 3.7 cm2 SV(LVOT): 118.2 ml PA V2 max: 106.5 cm/sec TR max martin: 261.7 cm/sec PA max PG (full): 1.3 mmHg TR max P.4 mmHg ECHO/ONC Echo Complete W/ Contrast Interpretation Summary Normal LV size. Left ventricular systolic function is normal. The left ventricular ejection fraction is 60 %. Mildly dilated aortic root. The global longitudinal strain is normal. The global longitudinal strain = -18. 5 % (normal). Ordering Physician: Hector Hsu Referring Physician: Jocelin Luo M.D. Performed By: Jaqueline Nuñez RDCS
== END | disposition home or self-care (01) ==
LOC: CVS 12:43
PROVIDERS: PCP Internal Medicine; Referring Provider Internal Medicine Cardiovascular Disease; Visit Provider Internal Medicine Cardiovascular Disease
DX: I34.0 Nonrheumatic mitral (valve) insufficiency (principal)
CPT/HCPCS: 93306; 93356; Q9957; A4216; C8929

== ENCOUNTER → 2024-05-25 | Outpatient (CLI) | payer MEDICARE, SELFPAY ==
--- NOTE | 2024-05-25 07:59 | CT_ITS ---
STUDY: LOW DOSE CT LUNG CANCER SCREENING REASON FOR EXAM: Male, 63 years old. Tobacco Dependency. Patient smoked 1-1 1/2 pack per day for 45 years. History of leukemia. RADIATION DOSAGE (If Supplied By Facility): CTDIvol = ( 3.18 ) mGy, DLP = ( 112.3 ) mGycm TECHNIQUE: No contrast was administered. Low dose technique was utilized (average mAS-38 and kVp 120). 1.25 mm axial source images with a slice interval of 1.25-mm were reconstructed in lung windows. 2.5 mm axial source images with a slice interval of 2.5-mm were reconstructed in lung windows. 5.0 mm axial source images with a slice interval of 5.0-mm were reconstructed in soft tissue windows. COMPARISON: Comparison is made with prior study dated June 05, 2023. NODULES: Emphysema: Mild degree of emphysematous changes. Slight increase in size of the right pleural effusion. Increased markings in the posterior aspect of the right middle lobe with thickening of the right minor fissure suggestive of scarring. Endobronchial lesion: None Aorta: Atherosclerotic plaque formation of the aortic arch. CORONARY ARTERIES: Coronary artery calcification is seen. Heart: Small pericardial effusion. Pulmonary artery: Unremarkable Mediastinal nodes: Unremarkable Other chest and abdominal findings: CT/Low Dose CT Lung Screening IMPRESSION: Lung-RADS category 2 - Continue annual screening with LDCT in 12 months. IMPORTANT NOTES FOR USE: ACR Lung-RADS Version 1.1 Assessment Categories Release Date: 2018 Category: Coded 0-4 bases on nodule(s) with highest degree of suspicion. Negative screen is defined as categories 1 and 2; a positive screen is defined as categories 3 and 4. Category 3 and 4A nodules that are unchanged on interval CT should be coded as category 2, and individuals returned to screening in 12 months. Category 4X: Category 3 or 4 nodules with additional imaging findings that increase the suspicion of lung cancer, such as spiculation, GGN that doubles in size in 1 year, enlarged lymph notes, etc. Category Modifiers: S (significant finding unrelated to lung cancer) Electronically Signed: Jeovanny Swan MD at 14:18 EST ,
== END | disposition home or self-care (01) ==
LOC: PSN 07:58
PROVIDERS: PCP Internal Medicine; Referring Provider Internal Medicine Critical Care Medicine; Visit Provider Internal Medicine Critical Care Medicine
DX: R94.2 Abnormal results of pulmonary function studies (principal); F17.210 Nicotine dependence, cigarettes, uncomplicated
CPT/HCPCS: 71271; 94060; 94726; 94729

== ENCOUNTER → 2024-05-28 | Outpatient (CLI) | payer MEDICARE, SELFPAY ==
[2024-05-28 08:32] VITALS: PULSE 63; PULSE 64; PULSE 79; PULSE 82; PULSE 84; PULSE 86; PULSE 87; O2SAT 94; O2SAT 95; O2SAT 96
== END | disposition home or self-care (01) ==
LOC: PSN 07:53
PROVIDERS: PCP Internal Medicine; Referring Provider Nurse Practitioner Acute Care; Visit Provider Nurse Practitioner Acute Care
DX: R94.2 Abnormal results of pulmonary function studies (principal)
CPT/HCPCS: 94618

== ENCOUNTER → 2025-05-11 | Outpatient (CLI) | payer MEDICARE, SELFPAY ==
--- OUTSIDE RECORDS SUMMARY | 2025-05-11 06:40 | XMS RPT_ITS | CCD ---
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 CLEANER-C) Unavailable Unavai Jocelin Reyes Unavailable Wolfgang Thompson Unavailable Hope Walter Unavailable Unavailable Vinod Reddy Unavailable Unavailable Unavailable Unavailable Felicia Boyd Unavailable Unavailable Unavailable Talia Nguyen Unavailable Unavailable Gravius, Eufemia Unavailable Unavailable Sofy Malik Unavailable Gravandrea, Eufemia Unavailable Unavailable Talia Nguyen Unavailable Unavailable Slarb, Letty Unavailable Unavailable Mg Blake Unavailable Vinod Reddy Unavailable Unavailable Raul, reinaldo Unavailable Unavailable Micki, Terese Unavailable Unavailable Isckarus, Mansour Unavailable Vinod Wyman Unavailable Unavailable Polina Bhat Unavailable Unavailable Jocelin Saunders DO Unavailable Dr. Mg Blake Unavailable Wolfgang Thompson MD Unavailable [phone] Isckarus, Mansour Unavailable Sofy Malik Unavailable [phone] Vinod Wyman LPN Unavailable Unavailable Polina Bhat LPN Unavailable Unavailable Gravius INEZ, Eufemia Unavailable Unavailable Messenger Talia MONTANA Unavailable Unavailable Micki DIRECTOR OF PSYCHIATRY, Terese Unavailable Unavailable Unavailable Unavailable Slarb DIRECTOR OF PSYCHIATRY, Letty Unavailable Unavailable PujaNatalie blanton DOhleen Unavailable Dr. Jocelin Saunders Primary Care Provider [phone] Dr. Jocelin Saunders Referring Provider Dr. Hector Hsu Attending Provider Dr. Sawyer Delgado Attending Provider Jocelin Saunders DO Unavailable Dr. Mg Blake Unavailable Jay HICKS, Wolfgang Quiles Unavailable Sawyer Delgado Unavailable Helena Sofy San Unavailable Garo DIRECTOR OF PSYCHIATRY, Vinod Unavailable Unavailable Gravius DIGITAL PRODUCTION ARTIST, Eufemia Unavailable Unavailable Grand DIGITAL PRODUCTION ARTIST, Kayela Unavailable Unavailable Cross DIRECTOR OF PSYCHIATRY, Polina Unavailable Unavailable Patrick RN, Talia Unavailable Unavailable Micki DIRECTOR OF PSYCHIATRY, Terese Unavailable Unavailable Unavailable Unavailable JADA BERNAL Attending Unava ilable JOCELIN SAUNDERS Primary Care Unavailable Dr. Jocelin Saunders Primary Care Provider Dr. Jocelin Saunders Referring Provider Dr. Sawyer Delgado Attending Provider Dr. John Brooks Attending Provider Dr. John Brooks Referring Provider Dr. John Brooks Other Provider Dr. Gallito Malcolm Attending Provider Michael FERMENTER HELPER, FERMENTER HELPER-C Savi Attending Provider Dr. Hector Hsu Attending Provider Dr. Sawyer Delgado Referring Provider Dr. Luke Campbell Attending Provider Rula Vazquez Attending Provider Unavailabl Loulou Tapia MA Unavailable Unavailable Jocelin Saunders DO Attending Unavailable Jocelin Saunders DO Referring Unavailable Jocelin Saunders DO Consulting Unavailable Dr. Jocelin Saunders Primary Care Provider Dr. Jocelin Saunders Referring Provider Dr. Sawyer Delgado Attending Provider Dr. John Brooks Attending Provider Dr. John Brooks Referring Provider Dr. John Brooks Other Provider Dr. Gallito Malcolm Attending Provider Dr. Hector Hsu Attending Provider Dr. Sawyer Delgado Referring Provider Michael FERMENTER HELPER, FERMENTER HELPER-C Savi Attending Provider Dr. Luke Campbell Attending Provider Rula Vazquez Attending Provider Unavailabl e Dr. Hector Hsu Other Provider Estrella FERMENTER HELPER, FERMENTER HELPER-C Karin Attending Provider [facility] Unavailable Unavailable Dr. Jocelin Saunders Primary Care Provider Dr. Jocelin Saunders Referring Provider Dr. Hector Hsu Attending Provider Dr. Sawyer Delgado Attending Provider Katelyn Lawton MD Unavailable Danny [facility] Unavailable Lamar De Oliveira RN Unavailable Unavailable Jocelin Saunders DO Primary Care Provider Dr. Jocelin Saunders Primary Care Provider Dr. Jocelin Saunders Referring Provider Dr. Sawyer Delgado Attending Provider JOCELIN SAUNDERS Referring Unavailable JOCELIN SAUNDERS Primary Care Unavailable KATELYN LAWTON Attending Unavailable Dr. Jocelin Saunders DO Primary Care Provider [phone] Dr. Jocelin Saunders DO Referring Provider Dr. Sawyer Delgado MD Attending Provider Michael FERMENTER HELPER-C, Savi Other Provider Rufener FERMENTER HELPER-C, Loulou Franklin Attending Provider Puja SCHOFIELD, Dr. Monreal Primary Care Provider Puja DO, Dr. Monreal Referring Provider Danny HICKS, Dr. Jacques Attending Provider Michael FERMENTER HELPER-C, Savi Other Provider Michael FERMENTER HELPER-C, Savi Attending Provider Puja DO, Dr. Monreal Primary Care Physician Puja DO, Dr. Monreal Referring Provider Toddfener FERMENTER HELPER-C, Loulou Franklin Attending Physician Danny HICKS, Dr. Jacques Attending Physician Michael FERMENTER HELPER-C, Savi Nurse Practitioner Michael FERMENTER HELPER-C, Savi Attending Physician Shadi HICKS, Dr. Young Attending Physician Puja, Jocelin Primary Care Unavailable Puja, Jocelin Referring Unavailable Michael, Savi Attending Unavailable Puja, Jocelin Referring Unavailable Michael, Savi Consulting Unavailable Sawyer Delgado Attending Unavailable Puja, Jocelin Primary Care Unavailable Shadi, Hector Consulting Unavailable Puja, Jocelin Primary Care Unavailable Puja, Jocelin Referring Unavailable Shadi, Hector Attending Unavailable Puja, Jocelin Primary Care Unavailable KayleighkarSawyer lane Attending Unavailable Puja, Jocelin Referring Unavailable Puja, Jocelin Primary Care Unavailable De La Rosa FERMENTER HELPER, Karin Referring Unavailable Brown, John Attending Unavailable Puja, Jocelin Primary Care Unavailable Shadi, Hector Attending Unavailable Shadi, Caddo Referring Unavailable Brown, John Referring Unavailable Puja, Jocelin Primary Care Unavailable De La Rosa FERMENTER HELPER, Karin Referring Unavailable De La Rosa FERMENTER HELPER, Karin Attending Unavailable Puja, Jocelin Primary Care Unavailable De La Rosa FERMENTER HELPER, Karin Referring Unavailable De La Rosa FERMENTER HELPER, Karin Consulting Unavailable Brown, John Attending Unavailable Puja, Jocelin Primary Care Unavailable Puja, Jocelin Referring Unavailable Estrella GARCIA, Karin Attending Unavailable Puja, Jocelin Primary Care Unavailable Puja, Jocelin Referring Unavailable Sawyer Delgado Attending Unavailable Puja, Jocelin Primary Care Unavailable Puja, Jocelin Referring Unavailable Kayleighkarus, Anthonyour Attending Unavailable Puja, Jocelin Primary Care Unavailable Puja, Jcoelin Referring Unavailable Loulou Gunter Attending Unavailable Medications Current Medications Medication Drug Class(es) Dates Sig (Normalized) Sig (Original) [id number] 200 actuat albuterol 0.09 mg/actuat metered dose inhaler (20 sources) beta2-Adrenergic Agonist Start: 06-26-2023 Albuterol 108 (90 Base) MCG/ACT Aero Soln inhaler 06/26/2023 Active Start: 06-26-2023 End: 01-05-2025 Albuterol Sulfate 90 mcg/act uation HFA aerosol inhaler Active 2 NMA INHALATION Q4H as needed for shortness of breath or wheezing 8.5 January 05, 2025 11:02am administer with spacer Complies with drug therapy Start: 06-26-2023 take 1 puff(s) by in halation every four hours Albuterol Sulfate Active 2 PUFF INHALATION Q4H 8.5 June 26, 2023 1:00am administer with spacer Start: 10-28-2018 End: 04-13-2019 Start: 10-28-2018 End: 04-13-2019 take 2 puff(s) by inhalation three to four times daily ProAir HFA 108 (90 Base) MCG/ACT Inhalation Aerosol Solution 2 (two) Puff Puff 3-4 times daily for 0 days Quantity: 1 {Inhaler} Refills: 0 Ordered: 13-Apr-2019 Talia Nguyen RN Start : 28-Oct-2018 End : 13-Apr-2019 Inactive Start: 10-28-2018 End: 04-13-2019 take 2 puff(s) by inhalation three to four times daily ProAir HFA 108 (90 Base) MCG/ACT Inhalation Aerosol Solution 2 (two) Puff Puff 3-4 times daily for 0 days Quantity: 1 {Inhaler} Refills: 0 Ordered: 13-Apr-2019 Talia Nguyen RN Start : 28-Oct-2018 End : 13-Apr-2019 Inactive ascorbic acid 500 mg extended release oral capsule (14 sources) Vitamin C Start: 09-06-2022 take 1 capsule by mouth every twelve hours Ascorbic Acid (Vitamin C) 500 mg Capsule, Extended Release Active 500 mg PO Q12H September 06, 2022 1:00am Complies with drug therapy Start: 04-05-2020 take 1000 mg by mouth once christopher ly Ascorbic Acid (Vitamin C) Active 1000 MG PO DAILY April 04, 2020 11:00pm aspirin 81 mg delayed release oral tablet (20 sources) Platelet Aggregation Inhibitor, Nonsteroidal Anti-inflammatory Drug Start: 08-26-2018 End: 08-21-2019 take 1 tablet by mouth once daily Aspirin 81 mg tablet,delayed release (DR/EC) Active 81 mg PO DAILY September 02, 2018 1:00am Complies with drug therapy aspirin 81 MG Ch ew Tab chewable tablet Chew 1 tablet daily. Active atorvastatin 80 mg oral tablet (20 sources) HMG-CoA Reductase Inhibitor Start: 12-15-2019 take 1 tablet by mouth at bedtime Atorvastatin 80 mg tablet Active 80 mg PO AT BEDTIME December 15, 2019 10:21am Complies with drug therapy Start: 05-11-2019 take 1 tablet by joaquin th once daily Atorvastatin Calcium 80 MG Oral Tablet 1 Tablet qd for 0 days Quantity: 30 {Tablet} Refills: 3 Ordered: 11-May-2019 Jocelin Saunders DO, DO, Kathleen Start : 11-May-2019 Active Start: 08-26-2018 End: 12-15-2019 take 1 tablet by mouth once daily Atorvastatin 80 mg tablet Discontinued 80 mg PO DAILY September 02, 2018 1:00am December 15, 2019 10:22am bosutinib 400 mg oral tablet (20 sources) Kinase Inhibitor Start: 01-13-2024 End: 07-28-2024 take 1 tablet by mouth once daily bosutinib 400 MG tablet Indications: CML (chronic myeloid leukemia) Take 1 tablet by mouth daily. 30 tablet 11 07/28/2024 Active Start: 03-15-2023 take 4 tablets by mo uth once daily at mealtime bosutinib 100 MG tablet Indications: CML (chronic myeloid leukemia) Take 4 tablets by mouth daily. Take with food. Swallow tablets whole; do not crush or cut tablets. 120 tablet 11 03/15/2023 Active Start: 08-16-2022 End: 11-06-2023 take 1 tablet by mouth once daily Bosutinib 100 mg tablet Active 400 mg PO DAILY November 06, 2023 10:57am Complies with drug therapy Start: 08-16-2022 take 200 mg by mouth once saman y Bosutinib Active 200 MG PO DAILY August 16, 2022 1:00am carvedilol 6.25 mg oral tablet (20 sources) alpha-Adrenergic Regina, beta-Adrenergic Regina Start: 08-26-2018 take 1 tablet by mouth twice daily Carvedilol 6.25 mg tablet Active 6.25 mg PO TWICE A DAY September 02, 2018 1:00am Complies with drug therapy cholecalciferol 0.025 mg oral capsule (20 sources) Vitamin D Start: 09-02-2018 take 1 capsule by mouth once daily Cholecalciferol (Vitamin D3) 1,000 unit capsule Active 1000 U PO DAILY September 02, 2018 1:00am Complies with drug therapy Fluticasone-Umeclidi n-Vilanter (20 sources) Anticholinergic, Corticosteroid, beta2-Adrenergic Agonist Start: 07-24-2024 Fluticasone-Umeclid in-Vilanter (Trelegy Ellipta) 100-62.5-25 mcg blister with device Active 1 NMA INHALATION Q24H 60 July 24, 2024 1:15pm Complies with drug therapy Start: 07-24-2024 Fluticasone-Um eclidin-Vilanter (Trelegy Ellipta) 100-62.5-25 mcg blister with device Active 1 NMA INHALATION Q24H 60 July 24, 2024 1:15pm Start: 07-24-2024 Fluticasone-Um eclidin-Vilanter (Trelegy Ellipta) 100-62.5-25 mcg blister with device Active 1 NMA INHALATION Q24H 60 July 24, 2024 1:15pm Start: 07-23-2023 Trelegy Ellipt a 100-62.5-25 MCG/ACT Aerosol Powder, breath activated inhaler 07/23/2023 Active Start: 06-26-2023 End: 07-24-2024 Nmqddepknkb-Bvjfvabby-Sxsrth er (Trelegy Ellipta) 100-62.5-25 mcg blister with device Discontinued 1 NMA INHALATION Q24H 60 June 26, 2023 9:29am July 24, 2024 1:16pm Start: 06-26-2023 End: 07-24-2024 Oofhbddohvu-Oobvicrnd-Zwjeyr er (Trelegy Ellipta) 100-62.5-25 mcg blister with device Discontinued 1 NMA INHALATION Q24H 60 June 26, 2023 9:29am July 24, 2024 1:16pm Start: 06-26-2023 Fluticasone-Um eclidin-Vilanter (Trelegy Ellipta) 100-62.5-25 mcg blister with device Active 1 INH INHALATION Q24H 60 June 26, 2023 9:29am Start: 09-18-2022 End: 06-26-2023 Pysizpgehhq-Cpicwwepc-Ysuymc er (Trelegy Ellipta) 100-62.5-25 mcg blister with device Discontinued 1 NMA INHALATION Q24H 60 September 18, 2022 11:18am June 26, 2023 9:30am Start: 09-18-2022 End: 06-26-2023 Mgzjkuerlsh-Sfbtjsqbw-Zkpjpm er (Trelegy Ellipta) 100-62.5-25 mcg blister with device Discontinued 1 NMA INHALATION Q24H 60 September 18, 2022 11:18am June 26, 2023 9:30am Start: 09-18-2022 End: 06-26-2023 Cvsiayfcagz-Tpwovjmzk-Binlgi er (Trelegy Ellipta) 100-62.5-25 mcg blister with device Discontinued 1 INH INHALATION Q24H 60 September 18, 2022 11:18am June 26, 2023 9:30am Start: 09-18-2022 Fluticasone-Um eclidin-Vilanter (Trelegy Ellipta) 100-62.5-25 mcg blister with device Active 1 INH INHALATION Q24H 60 September 18, 2022 10:18am Start: 09-18-2022 Fluticasone-Um eclidin-Vilanter (Trelegy Ellipta) 100-62.5-25 mcg blister with device Active 1 INH INHALATION Q24H 60 September 18, 2022 11:18am Start: 09-06-2022 End: 09-18-2022 Kgjhrayigoh-Lvdhtonzg-Svskda er (Trelegy Ellipta) 100-62.5-25 mcg Blister With Device Discontinued 1 NMA INHALATION Q24H September 06, 2022 1:00am September 18, 2022 11:18am Start: 09-06-2022 End: 09-18-2022 Pqlksdbpffw-Dnymncryb-Mubsrb er (Trelegy Ellipta) 100-62.5-25 mcg Blister With Device Discontinued 1 INH INHALATION Q24H September 06, 2022 12:00am September 18, 2022 10:18am Start: 09-06-2022 End: 09-18-2022 Tpvkjxborxe-Ywiilbpuf-Jzntyo er (Trelegy Ellipta) 100-62.5-25 mcg Blister With Device Discontinued 1 INH INHALATION Q24H September 06, 2022 1:00am September 18, 2022 11:18am Start: 09-06-2022 Fluticasone-Um eclidin-Vilanter (Trelegy Ellipta) 100-62.5-25 mcg Blister With Device Active 1 INH INHALATION Q2H September 06, 2022 12:00am Start: 08-20-2022 Fluticasone-Um eclidin-Vilanter (Trelegy Ellipta) 100-62.5-25 mcg blister with device Active 1 INH INHALATION DAILY 60 August 20, 2022 12:00am gabapentin 300 mg oral capsule (5 sources) Anti-epileptic Agent Start: 08-03-2024 take 1 capsule by mouth once daily Gabapentin 300 mg capsule Active 300 mg PO daily August 03, 2024 1:00am Complies with drug therapy Start: 07-28-2024 End: 11-02-2024 take 1 capsule by mouth three times daily Gabapentin 300 MG capsule Take 1 capsule by mouth 3 times daily. 90 capsule 2 08/04/2024 11/02/2024 Active ibuprofen 600 mg oral tablet (3 sources) Nonsteroidal Anti-inflammatory Drug Start: 12-23-2023 take 1 tablet by mouth every six hours as needed for pain Ibuprofen 600 mg tablet Active 600 mg PO EVERY 6 HOURS as needed for fever or pain 20 December 23, 2023 12:00am Complies with drug therapy Troy 9-Iju-Nfe-Fish Oil (11 sources) Start: 05-12-2020 take 1 capsule by mouth once daily Troy 8-Gbj-Xod-Fish Oil Active 1 CAP PO DAILY May 12, 2020 12:00am Start: 05-12-2020 take 1 capsule by mo [facility] once daily Troy 3-Ews-Irm-Fish Oil Active 1 CAP PO DAILY May 11, 2020 11:00pm ramipril 2.5 mg oral capsule (20 sources) Angiotensin Converting Enzyme Inhibitor Start: 08-26-2018 take 1 capsule by mouth once daily Ramipril 2.5 mg capsule Active 2.5 mg PO DAILY September 02, 2018 1:00am Complies with drug therapy sulfamethoxazole 800 mg / trimethoprim 160 mg oral tablet (20 sources) Dihydrofolate Reductase Inhibitor Antibacterial, Sulfonamide Antimicrobial Start: 02-17-2024 End: 02-22-2025 Sulfamethoxazol e-Trimethoprim 800-160 mg tablet Active 1 {tbl} PO 3 TIMES A WEEK 36 February 22, 2025 5:55am Chronic myeloid leukemia Chronic myeloid leukemia, BCR/ABL-positiv e, not having achieved remission Complies with drug therapy Start: 08-23-2022 End: 02-17-2024 take 1 tablet by mouth once daily Sulfamethoxazole-Trimethoprim (Bactrim D s) 800-160 mg tablet Discontinued 1 {tbl} PO .COMPLEX 36 August 22, 2023 3:05pm February 17, 2024 5:17pm Chronic myeloid leukemia Chronic myeloid leukemia, BCR/ABL-positive, not having achieved remission 1 TAB orally daily on Mondays, wednesdays and Fridays only; vitamin e 90 mg oral capsule (14 sources) Start: 08-25-2020 take 1 capsule by mouth once daily Vitamin E 200 UNIT capsule Active 200 U PO DAILY August 25, 2020 1:00am Complies with drug therapy Completed/Discontinued Medications Medication Drug Class(es) Dates Sig (Normalized) Sig (Original) acetaminophen 325 mg / HYDROcodone bitartrate 5 mg oral tablet (20 sources) Opioid Agonist Start: 06-03-2022 End: 08-09-2022 Hydrocodone-Acetami nophen 1 TABLET tablet Discontinued 1 {tbl} PO EVERY 4 HOURS NEEDED as needed for Pain 10 2 0 June 03, 2022 August 09, 2022 4:26pm Pain in abdominal muscle of left flank Myalgia, other site Start: 06-03-2022 End: 08-09-2022 take 1 tablet by mouth every four hours as needed Hydrocodone-Acetaminophen Discontinued 1 TABLET PO EVERY 4 HOURS NEEDED 10 2 June 03, 2022 August 09, 2022 4:26pm Start: 10-16-2018 End: 10-19-2018 Hydrocodone-Acetaminophen 1 TABLET tablet Discontinued 1 {tbl} PO EVERY 6 HOURS NEEDED as needed for Pain 10 3 0 October 16, 2018 12:00am October 18, 2018 12:00am October 19, 2018 12:09am Postoperative pain Other acute postprocedural pain Start: 10-16-2018 End: 10-19-2018 take 1 tablet by mouth every six hours as needed Hydrocodone-Acetaminophen Discontinued 1 TABLET PO EVERY 6 HOURS NEEDED 10 3 October 16, 2018 12:00am October 19, 2018 12:09am acetaminophen 325 mg / oxyCODONE hydrochloride 5 mg oral tablet (3 sources) Opioid Agonist Start: 08-29-2023 End: 07-28-2024 take 1 tablet by mouth every six hours as needed for pain oxyCODONE-acetaminophen 5-325 MG per tablet Indications: Acute midline low back pain with bilateral sciatica Take 1 tablet by mouth every 6 hours as needed for Moderate Pain or Severe Pain for up to 15 days. 45 tablet 08/29/2023 07/28/2024 Discontinued (Therapy completed) Start: 07-30-2023 End: 08-14-2023 take 1 tablet by mouth every six hours as needed oxyCODONE-acetaminophen 5-325 MG per tablet Indications: Acute midline low back pain with bilateral sciatica Take 1 tablet by mouth every 6 hours as needed for up to 15 days. 60 tablet 0 07/30/2023 08/14/2023 Active amoxicillin 875 mg oral tablet (20 sources) Penicillin-class Antibacterial Start: 01-29-2020 End: 02-08-2020 benzonatate 100 mg oral capsule (20 sources) Non-narcotic Antitussive Start: 03-18-2021 End: 08-09-2022 take 1 capsule by mouth twice daily as needed for cough Benzonatate (Tessalon Perles) 100 mg capsule Discontinued 100 mg PO TWICE A DAY as needed for cough 20 0 March 18, 2021 12:00am August 09, 2022 4:25pm Start: 10-28-2018 End: 12-08-2018 Start: 10-28-2018 End: 12-08-2018 take 1 capsule by mouth three times daily as needed for cough Benito Perles 100 MG Oral Capsule 1 (one) Capsule Capsule tid prn cough for 0 days Quantity: 30 {Capsule} Refills: 0 Ordered: 08-Dec-2018 Talia Nguyen RN Start : 28-Oct-2018 End : 08-Dec-2018 Inactive busPIRone hydrochloride 5 mg oral tablet (8 sources) Start: 08-15-2022 60 actuat ciclesonide 0.16 m g/actuat metered dose inhaler (10 sources) Start: 06-06-2022 End: 09-27-2022 Start: 06-06-2022 ciprofloxacin 500 mg oral tablet (3 sources) Quinolone Antimicrobial Start: 12-23-2023 End: 12-30-2023 take 1 tablet by mouth twice daily Ciprofloxacin Hcl 500 mg tablet Discontinued 500 mg PO TWICE A DAY 6 December 23, 2023 12:00am December 30, 2023 8:53am codeine phosphate 2 mg/ml / guaiFENesin 20 mg/ml oral solution (20 sources) Opioid Agonist Start: 10-28-2018 End: 12-08-2018 Start: 10-28-2018 End: 12-08-2018 Cheratussin AC 100-10 MG/5ML Oral Syrup 5-10 Milliliter Milliliter tid or qid for 0 days Quantity: 280 {Milliliter} Refills: 0 Ordered: 08-Dec-2018 Talia Nguyen RN Start : 28-Oct-2018 End : 08-Dec-2018 Inactive dasatinib 100 mg oral tablet (20 sources) Kinase Inhibitor Start: 07-13-2020 End: 08-08-2022 take 1 tablet by mouth once daily Dasatinib (Sprycel) 100 mg Tablet Discontinued 100 mg PO DAILY 30 20 06March 07, 2022 12:00am August 08, 2022 3:42pm Chronic myeloid leukemia Chronic myeloid leukemia, BCR/ABL-positive, not having achieved remission Comment on above: [facility] 100 mg oral tablet (14 sources) Tetracycline-class Drug Start: 03-18-2021 End: 07-09-2022 take 1 tablet by mouth twice daily Doxycycline Hyclate 100 mg tablet Discontinued 100 mg PO TWICE A DAY 14 0 March 18, 2021 12:00am July 09, 2022 9:15am 120 actuat fluticasone propionate 0.11 mg/actuat metered dose inhaler (20 sources) Corticosteroid Start: 07-04-2022 End: 08-20-2022 Fluticasone Propionate 110 mcg/actuation HFA aerosol inhaler Discontinued 1 NMA INHALATION TWICE A DAY July 04, 2022 1:00am August 20, 2022 10:35am Start: 07-04-2022 End: 08-20-2022 take 1 puff(s) by inhalation twice daily Fluticasone Propionate Discontinued 1 PUFF INHALATION TWICE A DAY July 04, 2022 1:00am August 20, 2022 10:35am Start: 07-04-2022 End: 08-20-2022 take 1 puff(s) by inhalation twice daily Fluticasone Propionate Discontinued 1 PUFF INHALATION TWICE A DAY July 04, 2022 12:00am August 20, 2022 9:35am Start: 07-04-2022 take 1 puff(s) by in halation twice daily Fluticasone Propionate Active 1 PUFF INHALATION TWICE A DAY July 04, 2022 12:00am Start: 06-06-2022 End: 07-30-2023 take 1 puff(s) by mouth twice daily Flovent HFA 110 MCG/ACT Aerosol inhaler INHALE 1 PUFF BY MOUTH TWICE DAILY 0 06/06/2022 07/30/2023 Discontinued Start: 06-06-2022 End: 09-27-2022 Start: 06-06-2022 Start: 10-28-2018 End: 04-13-2019 Start: 10-28-2018 End: 04-13-2019 Flonase Allergy Relief 50 MC G/ACT Nasal Suspension 2 (two) Puff Puff daily as directed for 0 days Quantity: 1 {Bottle} Refills: 0 Ordered: 13-Apr-2019 Talia Nguyen RN Start : 28-Oct-2018 End : 13-Apr-2019 Inactive Fluticasone Propionate 110 mcg/actuation HFA aerosol inhaler (2 sources) Start: 07-04-2022 End: 08-20-2022 Fluticasone Propionate 110 mcg/actuation HFA aerosol inhaler Discontinued 1 NMA INHALATION TWICE A DAY July 04, 2022 1:00am August 20, 2022 10:35am levoFLOXacin 500 mg oral tablet (20 sources) Quinolone Antimicrobial Start: 10-28-2018 End: 11-04-2018 meloxicam 7.5 mg oral tablet (20 sources) Nonsteroidal Anti-inflammatory Drug Start: 06-03-2022 End: 08-09-2022 take 1 tablet by mouth once daily Meloxicam 7.5 mg tablet Discontinued 7.5 mg PO DAILY 7 0 June 03, 2022 1:00am August 09, 2022 4:26pm Start: 04-25-2020 End: 12-21-2020 metaxalone 800 mg oral tablet (20 sources) Start: 04-25-2020 End: 12-21-2020 Troy 4-Cna-Nmr-Fish Oil 500 MG capsule,delayed release(DR/EC) (3 sources) Start: 05-12-2020 End: 11-05-2024 Troy 2-Abf-Gzu-Fish Oil 500 MG capsule,delayed release(DR/EC) Discontinued 1 NMA PO DAILY May 12, 2020 12:00am November 05, 2024 11:39am omega-3 acid ethyl esters (long-term) 1000 mg oral capsule (14 sources) Start: 09-02-2018 End: 12-15-2019 Troy 1-Syr-Ajs-Fish Oil (Fish Oil) 1,000 mg (120 mg-180 mg) capsule Discontinued 2 NMA PO DAILY 0 September 02, 2018 1:00am December 15, 2019 10:21am omeprazole 40 mg delayed release oral capsule (20 sources) Proton Pump Inhibitor Start: 08-26-2018 End: 03-19-2019 take 1 capsule by mouth once daily Omeprazole 40 mg capsule,delayed release(DR/EC) Discontinued 40 mg PO DAILY September 02, 2018 1:00am March 19, 2019 9:08am Comment on above: s/p hiatal hernia gates rgery ondansetron 8 mg oral tablet (20 sources) Serotonin-3 Receptor Antagonist Start: 11-20-2023 End: 11-05-2024 take 1 tablet by mouth every eight hours as needed for nausea Ondansetron Hcl 8 mg tablet Discontinued 8 mg PO EVERY 8 HOURS NEEDED as needed for Nausea/Emesis 30 0 November 20, 2023 9:08am November 05, 2024 11:40am Chronic myeloid leukemia Chemotherapy-induce d nausea and vomiting Chronic myeloid leukemia, BCR/ABL-positive, not having achieved remission Nausea with vomiting, unspecified Start: 08-08-2022 End: 05-03-2023 take 1 tablet by mouth every twelve hours as needed for nausea and vomiting Ondansetron Hcl 8 mg tablet Discontinued 8 mg PO EVERY 12 HOURS NEEDED as needed for Nausea And Vomiting 60 6 August 08, 2022 3:44pm May 03, 2023 12:31pm Chronic myeloid leukemia Chronic myeloid leukemia, BCR/ABL-positive, not having achieved remission Start: 05-05-2020 End: 07-09-2022 take 1 tablet by mouth every eight hours as needed for nausea Ondansetron Hcl 8 MG tablet Discontinued 8 mg PO EVERY 8 HOURS NEEDED as needed for Nausea/Emesis 30 6 May 05, 2020 12:00am July 09, 2022 9:15am Chronic myeloid leukemia Chemotherapy-induced nausea and vomiting Chronic myeloid leukemia, BCR/ABL-positive, not having achieved remission Nausea with vomiting, unspecified phenazopyridine hydrochloride 100 mg oral tablet (3 sources) Start: 12-23-2023 End: 11-05-2024 take 1 tablet by mouth three times daily Phenazopyridine (Pyridium) 100 mg tablet Discontinued 100 mg PO THREE TIMES A DAY 15 0 December 23, 2023 12:00am November 05, 2024 11:40am predniSONE 10 mg oral tablet (20 sources) Start: 10-28-2018 End: 12-08-2018 Comment on above: with food Spirometer (10 sources) Start: 10-28-2018 End: 04-13-2019 Spirometer Kit (20 sources) Start: 10-28-2018 End: 04-13-2019 Spirometer Kit 1 (one) Kit Kit 5 x daily for 0 days Quantity: 1 {Each} Refills: 0 Ordered: 13-Apr-2019 Talia Nguyen RN Start : 28-Oct-2018 End : 13-Apr-2019 Inactive Comments: Use 5 x daily for 3-5 min Start: 10-28-2018 End: 04-13-2019 Spirometer Kit 1 (one) Kit K it 5 x daily for 0 days Quantity: 1 {Each} Refills: 0 Ordered: 13-Apr-2019 Talia Nguyen LPN Start : 28-Oct-2018 End : 13-Apr-2019 Inactive Comments: Use 5 x daily for 3-5 min Start: 10-28-2018 Spirometer Kit 1 (one) Kit Kit 5 x daily for 0 days Quantity: 1 {Each} Refills: 0 Ordered: 31-Oct-2018 Vinod Reddy Start : 28-Oct-2018 Active Comments: Use 5 x daily for 3-5 min Start: 10-28-2018 Spirometer Kit 1 (one) Kit 5 x daily for 0 days Quantity: 1 {Each} Refills: 0 Ordered: 28-Oct-2018 Felicia Boyd CNP Start : 28-Oct-2018 Active Comments: Use 5 x daily for 3-5 min Comment on above: Use 5 x daily for 3- 5 min tamsulosin hydrochloride 0.4 mg oral capsule (3 sources) alpha-Adrenergic Regina Start: 4 End: 4 take 1 capsule by mouth once daily Tamsulosin (Flomax) 0.4 mg capsule Discontinued 0.4 mg PO DAILY 10 0 December 23, 2023 12:00am December 30, 2023 8:54am Vitamin D (20 sources) vitamin d Inacti ve vitamin d Active Problems Active Problems Problem Classification Problem Date Documented Date Episodic/Chronic Abdominal pain (20 sources) Abdominal pain; Translations: [Abdominal pain] Resolved: 12-04-2018 10-31-2018 Episodic Comment on above: recent surgery, told to use cough pillow, was seen by Cebul yesterday to be seen 4-15, abd pain improved with control of cough s/p hiatal hernia gates rgery recent surgery, told to use cough pillow, was seen by Cebul yesterday to be seen 4-15 Adjustment disorders (16 sources) Stress; Translations: [Stress] 08-15-2022 Chronic Administrative/social admission (20 sources) Counseling procedure with explicit context; Translations: [Patient encounter status] 08-26-2018 Episodic Calculus of urinary tract (3 sources) Kidney stone; Translations: [Calculus of kidney] 12-31-2023 Episodic Chronic obstructive pulmonary disease and bronchiectasis (17 sources) Moderate chronic obstructive pulmonary disease; Translations: [COPD, moderate] 01-30-2023 Chronic Complications of surgical procedures or medical care (20 sources) Drug therapy finding; Translations: [Medication side effect] Resolved: 04-13-2019 04-13-2019 Episodic Coronary atherosclerosis and other heart disease (20 sources) Atherosclerotic heart disease of [place] coronary artery without angina pectoris; Translations: [Multi vessel coronary artery disease] Onset: 01-20-2017 08-26-2018 Chronic Comment on above: s/p stents Coronary atherosclerosis and other heart disease (20 sources) History of myocardial infarction; Translations: [Presence of coronary angioplasty implant and graft] Onset: 01-20-2017 08-26-2018 Episodic Diabetes mellitus without complication (20 sources) Type 2 diabetes mellitus; Translations: [Type II diabetes mellitus, well controlled] 10-30-2021 Chronic Diabetes mellitus without complication (20 sources) Hyperglycemia; Translations: [Hyperglycemia] 05-02-2020 Episodic Diabetes mellitus without complication (6 sources) Diabetes mellitus without complication Diseases of white blood cells (20 sources) Leukocytosis; Translations: [Leukocytosis] 01-11-2020 Chronic Comment on above: cellulitis R great t oe with recent toe fracture, elevated wbcs, Disorders of lipid metabolism (20 sources) Hyperlipidemia, unspecified; Translations: [Hyperlipidemia] Onset: 11-26-2016 01-11-2020 Chronic Comment on above: dietary chg to be do ne =-no new meds while doing chemo - will consider fish oil Esophageal disorders (20 sources) Gastroesophageal reflux disease with hiatal hernia; Translations: [Hiatal hernia with GERD] Resolved: 12-04-2018 04-13-2019 Chronic Comment on above: working on finding n ew surgeon for repair Esophageal disorders (20 sources) Esophageal disorders Essential hypertension (20 sources) Benign hypertension; Translations: [HTN (hypertension), benign] Onset: 04-16-2025 08-26-2018 Chronic Fracture of lower limb (20 sources) Open fracture of great toe of right foot; Translations: [Fracture of great toe, right, open] Resolved: 12-21-2020 05-02-2020 Episodic Immunizations and screening for infectious disease (20 sources) Need for prophylactic vaccination and inoculation against influenza; Translations: [Needs influenza immunization] 05-02-2020 Episodic Comment on above: checked in 2019 Leukemias (20 sources) Chronic myeloid leukemia; Translations: [CML (chronic myelocytic leukemia)] Onset: 07-09-2022 04-25-2020 Chronic Leukemias (8 sources) Leukemias Malaise and fatigue (20 sources) Fatigue; Translations: [Fatigue, unspecified type] Resolved: 06-26-2021 08-26-2018 Episodic Other connective tissue disease (20 sources) Bilateral plantar fasciitis; Translations: [Plantar fasciitis, bilateral] Resolved: 03-05-2022 05-02-2020 Episodic Comment on above: ice stretch and rx n said-no better refer to podiatry Other connective tissue disease (14 sources) Left sided abdominal pain; Translations: [Myalgia, other site] 06-11-2022 Episodic Other diseases of kidney and ureters (3 sources) Hydronephrosis with renal and ureteral calculous obstruction; Translations: [Hydronephrosis with urinary obstruction due to ureteral calculus] 12-31-2023 Episodic Other injuries and conditions due to external causes (20 sources) Unspecified injury of right foot, initial encounter; Translations: [Unspecified injury of right foot, sequela] Resolved: 12-21-2020 01-11-2020 Episodic Other lower respiratory disease (20 sources) Dyspnea at rest; Translations: [Shortness of breath at rest] Resolved: 09-11-2018 08-26-2018 Episodic Other lower respiratory disease (20 sources) Cough; Translations: [Cough] Resolved: 04-13-2019 09-11-2018 Episodic Comment on above: i think due to kuldeep b ut dont want to chg meds prior to surgery can do afterwards smoker x years, cons ider changing kuldeep to arb in November when seeing kf discussed with ptresolved although agree re:i think due to kuldeep but dont want to chg meds prior to surgery can do afterwards resolved although ag ree re:i think due to kuldeep but dont want to chg meds prior to surgery can do afterwards12/07- now that surgery over will hold kuldeep adn see if cough resolves-- later if needed can do pred and proair resolved although ag ree re:i think due to kuldeep but dont want to chg meds prior to surgery can do afterwards12/07- now that surgery over will hold kuldeep adn see if cough resolves-- later if needed can do pred and proair01/07- cough resolved but pt feels its the inhaler that really helped - so will resume kuldeep for heart protection and see if cough returns resolved although ag ree re:i think due to kuldeep but dont want to chg meds prior to surgery can do afterwards12/07- now that surgery over will hold kuldeep adn see if cough resolves-- later if needed can do pred and proair01/07- cough resolved but pt feels its the inhaler that really helped - so will resume kuldeep for heart protection and see if cough returns--fu visit 01/07-- resumed kuldeep and no cough - inhaler resolved the cough post pneumonia smoker x yearsi thin k due to kuldeep but dont want to chg meds prior to surgery can do afterwards Other lower respiratory disease (20 sources) Dyspnea; Translations: [SOB (shortness of breath)] 04-25-2020 Episodic Comment on above: recent cardiac echo & ekg prior to chemo done -- it was good - Other lower respiratory disease (14 sources) Dyspnea on exertion; Translations: [Other forms of dyspnea] 12-12-2019 Episodic Other lower respiratory disease (14 sources) Pleuritic pain; Translations: [Pleurodynia] 08-17-2021 Episodic Other lower respiratory disease (13 sources) Respiratory insufficiency; Translations: [Other abnormalities of breathing] 06-12-2022 Episodic Other lower respiratory disease (7 sources) Shortness of breath; Translations: [Shortness of breath] 07-09-2022 Episodic Other nutritional; endocrine; and metabolic disorders (20 sources) Body mass index 30+ - obesity; Translations: [BMI 30.0-30.9,adult] Resolved: 06-26-2021 08-26-2018 Chronic Other nutritional; endocrine; and metabolic disorders (20 sources) Weight gain; Translations: [Weight gain] Resolved: 04-13-2019 08-26-2018 Episodic Other skin disorders (14 sources) Excessive sweating; Translations: [Generalized hyperhidrosis] 03-07-2020 Episodic Other upper respiratory infections (14 sources) Viral upper respiratory tract infection; Translations: [Acute upper respiratory infection, unspecified] 06-11-2022 Episodic Otitis media and related conditions (20 sources) Dysfunction of eustachian tube; Translations: [Chronic Eustachian tube dysfunction, bilateral] Resolved: 04-13-2019 10-31-2018 Episodic Pleurisy; pneumothorax; pulmonary collapse (20 sources) Atelectasis; Translations: [Atelectasis] Onset: 07-24-2022 Resolved: 04-13-2019 10-31-2018 Episodic Pneumonia (except that caused by tuberculosis or sexually transmitted disease) (20 sources) Pneumonia; Translations: [Pneumonia] Resolved: 04-13-2019 10-31-2018 Episodic Comment on above: or early ihfiltrate, will treat and repeat chest xray in 2 weeks, s/p pneomina Residual codes; unclassified (20 sources) Clammy skin; Translations: [Clammy skin] Resolved: 09-11-2018 08-26-2018 Episodic Residual codes; unclassified (5 sources) Needs influenza immunization; Translations: [Need for prophylactic vaccination and inoculation against influenza (Renamed from Need for immunization against influenza)] 04-25-2020 Episodic Residual codes; unclassified (20 sources) Non-smoker; Translations: [Non-smoker] Resolved: 12-24-2019 02-05-2020 Episodic Residual codes; unclassified (3 sources) Past history of procedure; Translations: [Other specified postprocedural states] 12-30-2023 Episodic Comment on above: 12/23/2023 Spondylosis; intervertebral disc disorders; other back problems (20 sources) Spasm of back muscles; Translations: [Muscle spasm of back] Onset: 07-31-2023 04-25-2020 Episodic Sprains and strains (2 sources) Sprain of unspecified ligament of unspecified ankle, initial encounter; Translations: [Sprain of unspecified ligament of unspecified ankle, initial encounter] Onset: 06-05-2022 Episodic Substance-related disorders (20 sources) Smoker; Translations: [Smoker] Onset: 06-29-2024 08-26-2018 Chronic Comment on above: 40 plus years, needs copd work up LDCT May 2025, ordered LDCT due June 10 Superficial injury; contusion (2 sources) Contusion of unspecified part of head, initial encounter; Translations: [Contusion of unspecified part of head, initial encounter] Onset: 06-05-2022 Episodic Syncope (20 sources) Near syncope; Translations: [Near syncope] Onset: 06-05-2022 09-02-2018 Episodic Comment on above: never happened again and it occured after big coughing spell so i think more vasovagal Unclassified (20 sources) Nutritional counseling; Translations: [Patient encounter status] 04-13-2019 Unclassified (20 sources) Body mass index 32.0-32.9, adult Unclassified (20 sources) Patient encounter status; Translations: [Encounter for tobacco use cessation counseling] 08-26-2018 Unclassified (20 sources) Fatigue, unspecified type Unclassified (20 sources) HTN (hypertension), benign Unclassified (20 sources) CAD, multiple vessel Unclassified (20 sources) Shortness of breath at rest Unclassified (20 sources) Weight gain Unclassified (20 sources) Unclassified (20 sources) Clammy skin Unclassified (20 sources) Chronic Eustachian tube dysfunction, bilateral Unclassified (20 sources) BMI 32.0-32.9,adult Unclassified (20 sources) BMI 34.0-34.9,adult Unclassified (20 sources) BMI 30.0-30.9,adult Unclassified (20 sources) Screening status; Translations: [Encounter for screening for malignant neoplasm of prostate (Renamed from Screening for prostate cancer)] 04-13-2019 Unclassified (20 sources) BMI 31.0-31.9,adult Unclassified (20 sources) Open fracture of great toe of right foot; Translations: [Fracture of great toe, right, open] 01-11-2020 Unclassified (20 sources) Foot injury, right, initial encounter Unclassified (20 sources) BMI 33.0-33.9,adult Unclassified (16 sources) Plantar fasciitis, bilateral Unclassified (20 sources) CML (chronic myelocytic leukemia) Unclassified (16 sources) Encounter for hepatitis C virus screening test for high risk patient Past or Other Problems Problem Classification Problem Date Documented Date Episodic/Chronic Coronary atherosclerosis and other heart disease (20 sources) Coronary atherosclerosis and other heart disease Esophageal disorders (20 sources) Gastroesophageal reflux disease with hiatal hernia; Translations: [Hiatal hernia with GERD] Resolved: 12-04-2018 08-26-2018 Episodic Comment on above: working on finding n ew surgeon for repair Mood disorders (4 sources) Mood disorders Onset: 07-10-2022 Resolved: 07-28-2024 07-10-2022 Other connective tissue disease (5 sources) Bilateral plantar fasciitis; Translations: [Plantar fasciitis, bilateral] 04-25-2020 Comment on above: ice stretch and rx n said-no better refer to podiatry Other screening for suspected conditions (not mental disorders or infectious disease) (20 sources) Screening status; Translations: [Encounter for screening for malignant neoplasm of prostate (Renamed from Screening for prostate cancer)] Onset: 2024 05-02-2020 Episodic Residual codes; unclassified (20 sources) Preoperative state; Translations: [Pre-operative clearance] Resolved: 04-13-2019 04-13-2019 Episodic Comment on above: dr thompson Unclassified (20 sources) Medication side effects present; Translations: [Medication side effect] 09-11-2018 Unclassified (20 sources) Pre-operative clearance Unclassified (20 sources) Non-smoker; Translations: [Non-smoker] Resolved: 12-24-2019 12-22-2018 Unclassified (20 sources) Drug therapy finding; Translations: [Medication side effect] Resolved: 04-13-2019 01-12-2019 Unclassified (20 sources) Foot injury, right, sequela Results Test Name Value Interpretation Reference Range Facility Oncology Visit Reporton 04-21 Oncology Visit Report [facility] [address] [place] [id number] OFFICE VISIT Date of Service: 05/06/25 1054 MR#: [id number] Acct: [id number] Name: FREDERIC OVALLES Rep #: [id number] : 1960 From: Sawyer Delgado MD Age/Sex: 64/M [place] [facility] [place] Status: Signed HPI Subjective Date of Service 05/06/25 Chief Complaint Chronic myeloid leukemia on treatment History of Present Illness 64-year-old gentleman with no known chronic inflammatory or infectious diseases referred in consultation because of a persistent leukocytosis. March 2020 peripheral blood BCR ABL by FISH was positive consistent with chronic myeloid leukemia. Bone marrow aspirate and biopsy April 13, 2020: BONE MARROW DIAGNOSIS Bone marrow biopsy, clot and aspiration (specimens A-C): Hypercellular bone marrow. No stainable iron identified. No evidence of lymphoproliferative disorder. See comment. COMMENT Flow cytometry analysis reveals no increased blasts population. However, myeloid elements exhibit aberrant expression of CD56 and show left shift with down-regulation of CD10 and CD16. The findings are compatible with an underlying primary myeloid neoplasm. The flow cytometry analysis report from [facility] is reviewable in the patient???s EMR. BONE MARROW STUDY Slides are reviewed. CBC DATE: 04/13/20 WBC 22.5; RBC 5.33; HGB 15.8; HCT 48.5; MCV 91.0; RDW 48.2; PLTS 206,000 SEGS 54%; LYMPHS 23%; MONOS 11%; EOS 2%; BASOS 0% PERIPHERAL SMEAR: Submitted. RBC: Normochromic, normomorphic WBC: Neutrophilic leukocytosis with slight left shift. PLTS: Normomorphic BONE MARROW ASPIRATE DIFFERENTIAL: 200 cell count. Blasts % (normal 0-2): 2 Promyelocytes % (normal 1-5): 5 Myelocytes and metamyelocytes % (normal 17-41): 38 Bands and Segs % (normal 15-32): 26 Eos % (normal 1-6): 2 Basos % (normal 0-1): 0 Monocytes % (normal 0-4): 2 Erythroid Precursors % (normal 17-35): 18 Lymphocytes % (normal 7-13): 7 Plasma Cells % (normal 0-2): 0 ASPIRATE FINDINGS: Site: Not specified Paucispicular Cellular M/E ratio: Within normal limits (Normal 1.5 - 4.0) Megakaryocytes: Adequate Erythropoiesis: Progressive Granulopoiesis: Normoblastic CORE BIOPSY FINDINGS: Site: Not specified Adequacy: No bone present Cellularity %: Not applicable M/E ratio: Not applicable Blood Only rare marrow cell noted. ASPIRATE CLOT FINDINGS: Site: Not specified Marrow Particles: Many Cellularity %: 80% M/E ratio: Within normal limits Megakaryocytes: Adequate Granuloma(s): 0 Lymphoid aggregate(s): 0 Atypical infiltrate(s): 0 SPECIAL STAINS (with matched controls): Iron: Stainable iron not present Reticulin: Within normal limits PAS: Highlights myeloid elements and megakaryocytes. ADDENDUM FISH BCR/ABL1 REPORT FROM [facility] INTERPRETATION: BCR/ABL gene rearrangement is detected. RESULTS: BCR/ABL1 Normal Nuclei Positive Nuclei with Dual Fusion 3.33% 96.67% CYTOGENETICS REPORT FROM [facility] INTERPRETATION: Abnormal male karyotype was observed in twenty metaphases analyzed. 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 Bosutinib August 10, 2022-ongoing MMR (January 2023) [facility] Medical History Chronic myeloid leukemia Low back pain 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, right Tobacco use disorder, continuous Encounter for screening for malignant neoplasm of lung in current smoker with 30 pack year history or greater Pneumonia Fatigue Near syncope Fracture of great toe, right, open Unspecified injury of right foot, sequela Leukocytosis 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) History of ST elevation myocardial infarction (STEMI) (01/20/17) Hyperlipidemia Essential (primary) hypertension Nicotine dependence Atherosclerosis of coronary artery of [place] heart without angina pectoris Obesity (BMI 30.0-34.9) Hiatal hernia with GERD History of back problems Surgical History Status post laser lithotripsy of ureteral calculus History of bone marrow biopsy (04/13/20) History of bilateral inguinal hernia repair (08/2018) Status post laparoscopic Migue fundoplication (10/15/18) History of coronary artery stent placement (01/20/17) Family History Father Colon cancer Diabetes Heart disease Hypertension CAD (coronary artery disease) Sister Breast cancer Mother CAD (coronary artery disease) Hypertension Heart disease Social History household members: (more content not included)... Normal [facility] [id number] 04-29-2025 [facility] Misc. COMMENT Normal . [facility] Comment on above: Order Comment: [id number] BCR/ABL Result Comment: Test Ordered: [id number] BCR-ABL1, CML/ALL, PCR, Quant e13a2 (b2a2) transcript <0.0032 % [facility] Reference Range: . e14a2 (b3a2) transcript <0.0032 % [facility] Reference Range: . e1a2 transcript <0.0032 % [facility] Reference Range: . Interpretation: Negative [facility] Reference Range: . NEGATIVE for the BCR-ABL1 e1a2 (p190), e13a2 (b2a2, p210) and e14a2 (b3a2, p210) fusion transcripts. These results do not rule out the presence of rare BCR-ABL1 transcripts not detected by this assay. Director Review Comment JUS Reference Range: . Technical Component performed at [facility] Professional Component performed by: Yaquelin Mckeon, PhD, [facility] Director, Molecular Oncology [facility] [place] [id number], [address] [facility] [address] Background Comment Reference Range: . This assay can detect three different types of BCR-ABL1 fusion transcripts associated with CML, ALL, and AML: e13a2 (previously b2a2) and e14a2 (previously b3a2) (major breakpoint, p210), as well as e1a2 (minor breakpoint, p190). The e13a2 and e14a2 transcript values are titrated to the current International Scale (IS). The standardized baseline is 100% BCR-ABL1 (IS) and major molecular response (MMR) is equivalent to 0.1% BCR-ABL1 (IS) corresponding to a 3-log reduction. Results should be correlated with appropriate clinical and laboratory information as indicated. Methodology Comment TG Reference Range: . Total RNA is isolated from the sample and subject to a real- time, reverse transcriptase polymerase chain reaction (RT- PCR). The PCR primers and probes are specific for BCR-ABL1 e13a2, e14a2 and e1a2 fusion transcripts. The ABL1 transcript is amplified as the control for cDNA quantity and quality. Serial dilutions of a validated positive control RNA with known t(9;22) BCR-ABL1 are used as reference for quantification of BCR-ABL1 relative to ABL1. The numeric BCR-ABL1 level is reported as % BCR- ABL1/ABL1 and the detection sensitivity is 4.5 log below the standard baseline (<0.0032%). This test was developed and its performance characteristics determined by [facility]. It has not been cleared or approved by the Food and Drug Administration. References Comment TG Reference Range: . 1) Allyson Elaine S. Molecular monitoring of chronic myeloid leukemia. Semin Hematol. 2003 Apr; 40(2 Suppl 2):62-68. 2) NCCN Clinical Practice Guidelines in Oncology Chronic Myeloid Leukemia Version 1.2024 - February 27, 2024 3) Dileep Hoffman, Elina P, et al. Establishment of the of the first World Health Organization International Genetic Reference Panel for quantitation of BCR-ABL mRNA. Blood. 2010 25; 116(22):r047-890. Performed at: LUU - [facility] [address] [facility], [place], [place] [id number] [employer] Front Desk Clerk: Sherri Davey [facility], Phone: [phone] Performed at: TG - [facility] [address] [facility], [place], [place] [id number] [employer] Front Desk Clerk: Sherri Davey [facility], Phone: [phone] Performed at: CB - [facility] [address] [id number] [employer] Front Desk Clerk: Michael Ragsdale PhD, Phone: [phone] Performed By: #### L 3410.9992 #### [facility] [address] [place], [place], [address] Hemoglobin A1con 04-26-2025 HbA1c (Bld) [Mass fraction] 6.3 % High <=5.6 [facility] Comment on above: Result Comment: Norm al < 5.7 % Prediabetic 5.7 - 6.4 % Diabetic >or= 6.5 % Please note range changes. Performed By: #### L 500.3400, L501.9310, L501.9985, L501.9520, L500.4100 #### [facility] [address] [place], [address] Lipid Profileon 04-26-2025 CHOL:HDL 3.46 Normal [facility] Comment on above: Performed By: #### L 500.3400, L501.9310, L501.9985, L501.9520, L500.4100 #### [facility] [address] [place], [address] Cholesterol [Mass/Vol] 149 mg/dL Normal <=200 [facility] Comment on above: Result Comment: Chol esterol level, Desirable <200 mg/dL Borderline high cholesterol 200-239 mg/dL High cholesterol >=240 mg/dL Recommendations of the NCEP Adult Treatment Panel for the following risk-cutoff thresholds for the [place] population. Performed By: #### L 500.3400, L501.9310, L501.9985, L501.9520, L500.4100 #### [facility] [address] [place], [address] Cholesterol in HDL [Mass/Vol] 43 mg/dL Normal [facility] Comment on above: Result Comment: Amanda onal Cholesterol Education Program (NCEP) guidelines: <40 mg/dL: Low HDL-cholesterol (major risk factor for CHD) >= 60 mg/dL: High HDL-cholesterol (negative risk factor for CHD) HDL-cholesterol is affected by a number of factors, e.g. smoking, exercise, hormones, sex and age. Performed By: #### L 500.3400, L501.9310, L501.9985, L501.9520, L500.4100 #### [facility] [address] [place], [address] Cholesterol in LDL [Mass/Vol] 71 mg/dL Normal [facility] Comment on above: Result Comment: Bord dtsavh=186-099 mg/dL Higher Rkac=449 mg/dL or greater Friedwald Equation for LDL-C Performed By: #### L 500.3400, L501.9310, L501.9985, L501.9520, L500.4100 #### [facility] [address] [place], [address] Cholesterol in VLDL [Mass/Vol] 35 mg/dL Normal 5-40 [facility] Comment on above: Performed By: #### L 500.3400, L501.9310, L501.9985, L501.9520, L500.4100 #### [facility] [address] [place], [address] Triglyceride [Mass/Vol] 175 mg/dL Normal [facility] Comment on above: Result Comment: The drugs N-Acetylcysteine and Metamizole may falsely depress this assay. Normal range: <150 mg/dL Borderline High: 150-199 mg/dL High: 200-499 mg/dL Very High: >500 mg/dL Performed By: #### L 500.3400, L501.9310, L501.9985, L501.9520, L500.4100 #### [facility] [address] [place], [address] Liver Profileon 04-26-2025 Albumin [Mass/Vol] 4.4 g/dL Normal 3.4-4.8 [facility] Comment on above: Performed By: #### L 500.3400, L501.9310, L501.9985, L501.9520, L500.4100 #### [facility] [address] [place], [address] ALK PHOS 75 U/L Normal 40-129 [facility] Comment on above: Performed By: #### L 500.3400, L501.9310, L501.9985, L501.9520, L500.4100 #### [facility] [address] [place], [address] ALT [Catalytic activity/Vol] 34 U/L Normal <=46 [facility] Comment on above: Performed By: #### L 500.3400, L501.9310, L501.9985, L501.9520, L500.4100 #### [facility] [address] [place], [address] AST [Catalytic activity/Vol] 27 U/L Normal <=37 [facility] Comment on above: Performed By: #### L 500.3400, L501.9310, L501.9985, L501.9520, L500.4100 #### [facility] [address] [place], [address] Bilirubin [Mass/Vol] 0.39 mg/dL Normal 0.00-1.30 [facility] Comment on above: Performed By: #### L 500.3400, L501.9310, L501.9985, L501.9520, L500.4100 #### [facility] [address] [place], [address] Bilirubin.direct [Mass/Vol] 0.16 mg/dL Normal 0.00-0.30 [facility] Comment on above: Performed By: #### L 500.3400, L501.9310, L501.9985, L501.9520, L500.4100 #### [facility] [address] [place], [address] Globulin (S) [Mass/Vol] 2.9 g/dL Normal 2.2-4.2 [facility] Comment on above: Performed By: #### L 500.3400, L501.9310, L501.9985, L501.9520, L500.4100 #### [facility] [address] [place], [address] T PROT 7.3 g/dL Normal 5.9-8.4 [facility] Comment on above: Performed By: #### L 500.3400, L501.9310, L501.9985, L501.9520, L500.4100 #### [facility] [address] [place], [address] T4 Total, Thyroxinon 025 T4 [Mass/Vol] 6.6 ug/dL Normal 4.5-12.1 [facility] Comment on above: Performed By: #### L 500.3400, L501.9310, L501.9985, L501.9520, L500.4100 #### [facility] [address] [place], [address] Thyroid Stim Hormone (TSH)on 04-26-2025 TSH 3.320 uIU/mL Normal 0.300-4.20 0 [facility] Comment on above: Performed By: #### L 500.3400, L501.9310, L501.9985, L501.9520, L500.4100 #### [facility] [address] [place], [address] CBC W/Diff, Automatedon 10-0 2-2025 Absolute Lymph 1.19 X10 3/uL Normal 0.83-4.51 [facility] Comment on above: Performed By: #### L 500.4050, L100.0100 #### [facility] [address] [place], [address] Absolute Neut 4.8 X10 3/uL Normal 2.0-7.7 [facility] Comment on above: Performed By: #### L 500.4050, L100.0100 #### [facility] [address] [place], [address] Basophils/100 WBC (Bld) 1.0 % Normal 0-[address] [facility] Comment on above: Performed By: #### L 500.4050, L100.0100 #### [facility] [address] [place], [address] Eosinophils/100 WBC (Bld) 4.9 % Normal 0-5 [facility] Comment on above: Performed By: #### L 500.4050, L100.0100 #### [facility] [address] [place], [address] Erythrocyte distribution width (RBC) [Ratio] 13.1 % Normal 11.6-14.6 [facility] Comment on above: Performed By: #### L 500.4050, L100.0100 #### [facility] [address] [place], [address] Hematocrit (Bld) [Volume fraction] 44.8 % Normal 40-54 [facility] Comment on above: Performed By: #### L 500.4050, L100.0100 #### [facility] [address] [place], [address] Hemoglobin (Bld) [Mass/Vol] 15.4 g/dL Normal 13.0-16.5 [facility] Comment on above: Performed By: #### L 500.4050, L100.0100 #### [facility] [address] [place], [address] IG% 0.300 Normal 0.0-0.9 [facility] Comment on above: Result Comment: IG% - Immature Granulocytes (promyelocytes, myelocytes and metamyelocytes) > 1% indicates that a LEFT SHIFT is Present. Performed By: #### L 500.4050, L100.0100 #### [facility] [address] [place], [address] Lymphocytes/100 WBC (Bld) 16.7 % Low 19-41 [facility] Comment on above: Performed By: #### L 500.4050, L100.0100 #### [facility] [address] [place], [address] MCH (RBC) [Entitic mass] 29.6 pg Normal 27.0-32.0 [facility] Comment on above: Performed By: #### L 500.4050, L100.0100 #### [facility] [address] [place], [address] MCHC (RBC) [Mass/Vol] 34.4 g/dL Normal 32-36 [facility] Comment on above: Performed By: #### L 500.4050, L100.0100 #### [facility] [address] [place], [address] MCV (RBC) [Entitic vol] 86.2 fL Normal 80-[address] [facility] Comment on above: Performed By: #### L 500.4050, L100.0100 #### [facility] [address] [place], [address] Monocytes/100 WBC (Bld) 9.8 % Normal 0-[address] [facility] Comment on above: Performed By: #### L 500.4050, L100.0100 #### [facility] [address] [place], [address] Neutrophils/100 WBC (Bld) 67.3 % Normal 47-70 [facility] Comment on above: Performed By: #### L 500.4050, L100.0100 #### [facility] [address] [place], [address] Nucleated RBC (Bld) [#/Vol] 0 10*3/uL Normal 0-5 [facility] Comment on above: Performed By: #### L 500.4050, L100.0100 #### [facility] [address] [place], [address] Platelet mean volume (Bld) [Entitic vol] 11.0 fL Normal 6.2-12.0 [facility] Comment on above: Performed By: #### L 500.4050, L100.0100 #### [facility] [address] [place], [address] Platelets (Bld) [#/Vol] 233 10*3/uL Normal 150-450 [facility] Comment on above: Performed By: #### L 500.4050, L100.0100 #### [facility] [address] [place], [address] RBC (Bld) [#/Vol] 5.20 10*6/uL Normal 4.6-6.2 [facility] Comment on above: Performed By: #### L 500.4050, L100.0100 #### [facility] [address] [place], [address] RDW SD 40.5 fl Normal 35.1-43.9 [facility] Comment on above: Performed By: #### L 500.4050, L100.0100 #### [facility] [address] [place], [address] WBC (Bld) [#/Vol] 7.1 10*3/uL Normal 4.4-11.0 [facility] Comment on above: Performed By: #### L 500.4050, L100.0100 #### [facility] [address] [place], [address] Comprehensive Metabolic Prof ilon 04-22-2025 Albumin [Mass/Vol] 4.6 g/dL Normal 3.4-4.8 [facility] Comment on above: Performed By: #### L 500.4050, L100.0100 #### [facility] [address] [place], [address] Albumin/Globulin [Mass ratio] 1.6 {ratio} Normal 0.9-2.4 [facility] Comment on above: Performed By: #### L 500.4050, L100.0100 #### [facility] [address] [place], [address] ALK PHOS 74 U/L Normal 40-129 [facility] Comment on above: Performed By: #### L 500.4050, L100.0100 #### [facility] [address] [place], [address] ALT [Catalytic activity/Vol] 44 U/L Normal <=46 [facility] Comment on above: Performed By: #### L 500.4050, L100.0100 #### [facility] [address] [place], [address] AST [Catalytic activity/Vol] 35 U/L Normal <=37 [facility] Comment on above: Performed By: #### L 500.4050, L100.0100 #### [facility] [address] [place], [address] Bilirubin [Mass/Vol] 0.31 mg/dL Normal 0.00-1.30 [facility] Comment on above: Performed By: #### L 500.4050, L100.0100 #### [facility] [address] [place], [address] BUN/CRE 15.8 RATIO Normal 10-20 [facility] Comment on above: Performed By: #### L 500.4050, L100.0100 #### [facility] [address] [place], [address] Calcium [Mass/Vol] 9.1 mg/dL Normal 7.6-11.0 [facility] Comment on above: Performed By: #### L 500.4050, L100.0100 #### [facility] [address] [place], [address] Chloride [Moles/Vol] 103 mmol/L Normal 98-108 [facility] Comment on above: Performed By: #### L 500.4050, L100.0100 #### [facility] [address] [place], [address] CO2 [Moles/Vol] 23.2 mmol/L Normal 21.0-32.0 [facility] Comment on above: Performed By: #### L 500.4050, L100.0100 #### [facility] [address] [place], [address] Creatinine [Mass/Vol] 0.85 mg/dL Normal 0.70-1.20 [facility] Comment on above: Performed By: #### L 500.4050, L100.0100 #### [facility] [address] [place], [address] ECRCL 112.64 ml/min Normal 50-250 [facility] Comment on above: Performed By: #### L 500.4050, L100.0100 #### [facility] [address] [place], [address] GAP 12 Normal 5-15 [facility] Comment on above: Performed By: #### L 500.4050, L100.0100 #### [facility] [address] [place], [address] GFR/1.73 sq M.predicted among non-blacks MDRD (S/P/Bld) [Vol rate/Area] 97 mL/min/{1.73_m2} Normal >60 [facility] Comment on above: Result Comment: mL/m in/1.73m2 CKD-EPI Creatinine Equation (2020) Performed By: #### L 500.4050, L100.0100 #### [facility] [address] [place], [address] Globulin (S) [Mass/Vol] 2.9 g/dL Normal 2.2-4.[address] [facility] Comment on above: Performed By: #### L 500.4050, L100.0100 #### [facility] [address] [place], [address] Glucose [Mass/Vol] 135 mg/dL High 70-99 [facility] Comment on above: Performed By: #### L 500.4050, L100.0100 #### [facility] [address] [place], [address] Potassium [Moles/Vol] 4.1 mmol/L Normal 3.3-5.1 [facility] Comment on above: Performed By: #### L 500.4050, L100.0100 #### [facility] [address] [place], [address] Sodium [Moles/Vol] 138 mmol/L Normal 133-145 [facility] Comment on above: Performed By: #### L 500.4050, L100.0100 #### [facility] [address] [place], [address] T PROT 7.4 g/dL Normal 5.9-8.4 [facility] Comment on above: Performed By: #### L 500.4050, L100.0100 #### [facility] [address] [place], [address] Urea nitrogen [Mass/Vol] 13 mg/dL Normal 4-19 [facility] Comment on above: Performed By: #### L 500.4050, L100.0100 #### [facility] [address] [place], [address] Cardiology Visit Reporton Cardiology Visit Report [facility] [address] [place], [place] [address] OFFICE VISIT Date of Service: 04/16/25 MR#: [id number] Acct: [id number] Name: FREDERIC OVALLES Rep #: [id number] : 1960 Provider: Dr. Hector Hsu MD Age/Sex: 64/M Location: [facility] [place] Status: Signed HPI HPI History of Present Illness Details: This is a 62-year-old gentleman that presents here today for a follow-up cardio oncology visit. He has a history of coronary artery disease with myocardial infarction in 2017 with 2 stents placed at that time.??? He had suffered a V. fib arrest. He had 2 stents placed, one was in the proximal left anterior descending artery and the other was in the mid right coronary artery.??? He also has a history of hypertension, hyperlipidemia.??? He has been diagnosed with chronic myeloid leukemia and has been on Busotinib which he has tolerated well. His echocardiographic findings prior to this demonstrated an ejection fraction of 55% with a global longitudinal strain of 18.1. From a cardiac standpoint, patient is doing well.??? His major issue is that he gets diaphoretic very easily and does not know why. He does not have any chest discomfort/heaviness/ti ghtness.??? His exercise tolerance is stable for his age.??? He does not have any worsening symptoms of shortness of breath. He does get SOB with exertional activity but it would be what he would expect. He denies any PND.??? He does not have any orthopnea.??? He does not have any symptoms of congestive heart failure.??? He does not have any palpitations that he is aware of.??? He does not have any lightheadedness or dizziness.??? He had a Holter monitor placed which demonstrated an average heart rate of 70 bpm minimum of 65 and max 108 bpm. Carotid ultrasound also did not demonstrate any significant abnormalities. He did undergo a stress test in September 2022 where he exercised 9 minutes, at 10.1 metabolic equivalents with no EKG changes or chest discomfort He did undergo some blood flow screening which demonstrated no significant plaque in the carotid arteries. He does not have any lower extremity edema.??? He does not have any symptoms of claudication.??? His physical exam demonstrated clear lung osuna regular rate and rhythm and no pedal edema. Intake Vital Signs 02/04/25 11:50 04/16/25 08:34 Height 6 ft 6 ft Weight: 243 lb 5 oz 245 lb BMI 33.0 33.2 BP 131/75 H 129/77 H Blood Pressure Location Lt brachial Lt brachial Position Sitting Sitting Respiration 16 16 Pulse 55 L 55 L Pulse Source Monitor Monitor Temp 98.5 F 97.6 F L Temperature Source Temporal Artery Temporal Artery Pulse Oximetry (%) 96 96 Oxygen Delivery Method room air room air Intake Visit Reasons: 1 Y FU Price Accuracy Supervisor Required: No Accompanied by: Self Is patient in pain?: No Allergies No Known Allergies Allergy (Verified 04/16/25 08:35) Medications ???Medication ???Instructions ???Recorded ???Confirmed ???Type aspirin 81 mg tablet,delayed 81 mg PO DAILY 09/02/18 04/16/25 H istory release carvedilol 6.25 mg tablet 6.25 mg PO BID 09/02/18 04/16/25 H istory cholecalciferol (vitamin D3) 25 1,000 unit PO DAILY 09/02/1804/16 History mcg (1,000 unit) capsule ramipril 2.5 mg capsule 2.5 mg PO DAILY 09/02/18 04/16/25 History atorvastatin 80 mg tablet 80 mg PO QHS 12/15/19 04/16/25 His tory vitamin E 200 unit capsule 200 unit PO DAILY 08/25/20 5 History ascorbic acid (vitamin C) 500 mg 500 mg PO Q12H 09/06/22 04/16/25 H istory capsule,extended release bosutinib 100 mg tablet 400 mg PO DAILY 11/06/23 04/16/25 History ibuprofen 600 mg tablet 600 mg PO Q6H PRN fever or pain 04/16/25 Rx #20 tabs fluticasone fur. 100 mcg-umeclid 1 inh inhalation Q24H #60 ea 07/2404/16/25 Rx 62.5 mcg-vilant 25 mcg inhalat.powder (Trelegy Ellipta) gabapentin 300 mg capsule 300 mg PO QDAY 08/03/24 04/16/25 H istory albuterol sulfate 90 mcg/actuation 2 puff inhalation Q4H PRN 04/16/25 Rx aerosol inhaler shortness of breath or wheezing #8.5 grams sulfamethoxazole 800 1 tab PO 3XW #36 TABLETS 02/22/25 04/16/25 Rx mg-trimethoprim 160 mg tablet PFSH Medical History Chronic myeloid leukemia Low back pain 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, right Tobacco use disorder, continuous Encounter for screening for malignant neoplasm of lung in current smoker with 30 pack year history or greater Pneumonia Fatigue Near syncope Fracture of great toe, right, open Unspecified injury of right foot, sequela Leukocytosis 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) History of ST elevation myocardial infarction (STEMI) (01/20/17) Hyperlipidemia Essential (primary) hypertension (more content not included)... Normal [facility] Oncology Visit Reporton 01-19 Oncology Visit Report [facility] [place] [facility] [address] [place] [id number] OFFICE VISIT Date of Service: 02/04/25 1143 MR#: [id number] Acct: [id number] Name: FREDERIC OVALLES Rep #: [id number] : 1960 From: Savi Rodriguez NP [employer]C Age/Sex: 64/M Location[place] [facility] [place] Status: Signed HPI Subjective Date of Service 02/04/25 Chief Complaint Chronic myeloid leukemia on treatment History of Present Illness 64-year-old gentleman with no known chronic inflammatory or infectious diseases referred in consultation because of a persistent leukocytosis. March 2020 peripheral blood BCR ABL by FISH was positive consistent with chronic myeloid leukemia. Bone marrow aspirate and biopsy April 13, 2020: BONE MARROW DIAGNOSIS Bone marrow biopsy, clot and aspiration (specimens A-C): Hypercellular bone marrow. No stainable iron identified. No evidence of lymphoproliferative disorder. See comment. COMMENT Flow cytometry analysis reveals no increased blasts population. However, myeloid elements exhibit aberrant expression of CD56 and show left shift with down-regulation of CD10 and CD16. The findings are compatible with an underlying primary myeloid neoplasm. The flow cytometry analysis report from [facility] is reviewable in the patient???s EMR. BONE MARROW STUDY Slides are reviewed. CBC DATE: 04/13/20 WBC 22.5; RBC 5.33; HGB 15.8; HCT 48.5; MCV 91.0; RDW 48.2; PLTS 206,000 SEGS 54%; LYMPHS 23%; MONOS 11%; EOS 2%; BASOS 0% PERIPHERAL SMEAR: Submitted. RBC: Normochromic, normomorphic WBC: Neutrophilic leukocytosis with slight left shift. PLTS: Normomorphic BONE MARROW ASPIRATE DIFFERENTIAL: 200 cell count. Blasts % (normal 0-2): 2 Promyelocytes % (normal 1-5): 5 Myelocytes and metamyelocytes % (normal 17-41): 38 Bands and Segs % (normal 15-32): 26 Eos % (normal 1-6): 2 Basos % (normal 0-1): 0 Monocytes % (normal 0-4): 2 Erythroid Precursors % (normal 17-35): 18 Lymphocytes % (normal 7-13): 7 Plasma Cells % (normal 0-2): 0 ASPIRATE FINDINGS: Site: Not specified Paucispicular Cellular M/E ratio: Within normal limits (Normal 1.5 - 4.0) Megakaryocytes: Adequate Erythropoiesis: Progressive Granulopoiesis: Normoblastic CORE BIOPSY FINDINGS: Site: Not specified Adequacy: No bone present Cellularity %: Not applicable M/E ratio: Not applicable Blood Only rare marrow cell noted. ASPIRATE CLOT FINDINGS: Site: Not specified Marrow Particles: Many Cellularity %: 80% M/E ratio: Within normal limits Megakaryocytes: Adequate Granuloma(s): 0 Lymphoid aggregate(s): 0 Atypical infiltrate(s): 0 SPECIAL STAINS (with matched controls): Iron: Stainable iron not present Reticulin: Within normal limits PAS: Highlights myeloid elements and megakaryocytes. ADDENDUM FISH BCR/ABL1 REPORT FROM [facility] INTERPRETATION: BCR/ABL gene rearrangement is detected. RESULTS: BCR/ABL1 Normal Nuclei Positive Nuclei with Dual Fusion 3.33% 96.67% CYTOGENETICS REPORT FROM [facility] INTERPRETATION: Abnormal male karyotype was observed in twenty metaphases analyzed. 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 Bosutinib August 10, 2022-ongoing MMR (January 2023) Interval History The patient is presenting to clinic for a planned follow-up. He denies any concerns r/t today's visit. Confirms adherence to oral therapy, Bosulif 400 mg at 0700 with breakfast. No longer experiencing diarrhea. Specifically denies fever/chills, fatigue, sweats, headache, dizziness, vision changes, rash, CP, palpitations, abd pain, nausea, swelling/pain of his extremities, any overt episodes of bleeding/bruising. Describes appetite as good, PO fluid intake as adequate. [facility] Medical History Chronic myeloid leukemia Low back pain 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, right Tobacco use disorder, continuous Encounter for screening for malignant neoplasm of lung in current smoker with 30 pack year history or greater Pneumonia Fatigue Near syncope Fracture of great toe, right, open Unspecified injury of right foot, sequela Leukocytosis 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) History of ST elevation myocardial infarction (STEMI) (01/20/17) Hyperlipidemia Essential (primary) hypertension Nicotine dependence Atherosclerosis of coronary artery of [place] heart without angina pectoris Obesity (BMI 30.0-34.9) Hiatal hernia with GERD History of back problems Surgical History Status post laser lithotripsy of ureteral calculus History of bone marrow biopsy (04/13/20) H (more content not included)... Normal [facility] [id number] 01-26-2025 [facility] Misc. COMMENT Normal . [facility] Comment on above: Order Comment: [id number] 1BCR/ABL - WB LAV - RF Result Comment: Test Ordered: [id number] BCR-ABL1, CML/ALL, PCR, Quant e13a2 (b2a2) transcript <0.0032 % % [facility] Reference Range: . e14a2 (b3a2) transcript <0.0032 % % [facility] Reference Range: . e1a2 transcript <0.0032 % % [facility] Reference Range: . Interpretation: Negative [facility] Reference Range: . NEGATIVE for the BCR-ABL1 e1a2 (p190), e13a2 (b2a2, p210) and e14a2 (b3a2, p210) fusion transcripts. These results do not rule out the presence of rare BCR-ABL1 transcripts not detected by this assay. Director Review Comment [facility] Reference Range: . Technical Component performed at [facility] RT Professional Component performed by: Dayan Davila, PhD, [facility] Director, Molecular Oncology [facility] RTP [id number], [address] [address] Background Comment LUU Reference Range: . This assay can detect three different types of BCR-ABL1 fusion transcripts associated with CML, ALL, and AML: e13a2 (previously b2a2) and e14a2 (previously b3a2) (major breakpoint, p210), as well as e1a2 (minor breakpoint, p190). The e13a2 and e14a2 transcript values are titrated to the current International Scale (IS). The standardized baseline is 100% BCR-ABL1 (IS) and major molecular response (MMR) is equivalent to 0.1% BCR-ABL1 (IS) corresponding to a 3-log reduction. Results should be correlated with appropriate clinical and laboratory information as indicated. Methodology Comment TG Reference Range: . Total RNA is isolated from the sample and subject to a real- time, reverse transcriptase polymerase chain reaction (RT- PCR). The PCR primers and probes are specific for BCR-ABL1 e13a2, e14a2 and e1a2 fusion transcripts. The ABL1 transcript is amplified as the control for cDNA quantity and quality. Serial dilutions of a validated positive control RNA with known t(9;22) BCR-ABL1 are used as reference for quantification of BCR-ABL1 relative to ABL1. The numeric BCR-ABL1 level is reported as % BCR- ABL1/ABL1 and the detection sensitivity is 4.5 log below the standard baseline (<0.0032%). This test was developed and its performance characteristics determined by [employer]. It has not been cleared or approved by the Food and Drug Administration. References Comment TG Reference Range: . 1) Allyson Elaine. Molecular monitoring of chronic myeloid leukemia. Semin Hematol. 2003 Oct; 40(2 Suppl 2):62-68. 2) NCCN Clinical Practice Guidelines in Oncology Chronic Myeloid Leukemia Version 1.2024 - February 27, 2024 3) Clara KRUSE, Dileep P, Elina P, et al. Establishment of the of the first World Health Organization International Genetic Reference Panel for quantitation of BCR-ABL mRNA. Blood. 2010 25; 116(22):j449-148. Performed at: [facility] - [facility] [address] [facility], [place] [id number] [employer] Front Desk Clerk: Sherri Davey [facility], Phone: [phone] Performed at: - [facility] [address] [facility], [place] [id number] [employer] Front Desk Clerk: Sherri Davey [facility], Phone: [phone] Performed at: - [place] [address] [employer] Front Desk Clerk: Michael Ragsdale PhD, Phone: [phone] Performed By: #### L 500.4050, L100.0100 #### [facility] [place], [place], [id number] Absolute lymphocyte countOrd ered By: Sawyer Delgado on 01-21-2025 Lymphocytes Auto (Unsp spec) [#/Vol] 0.88 10*3/uL 0.83-4.51 [facility] Absolute neutrophil countOrd ered By: Sawyer Delgado on 01-21-2025 Neutrophils (Bld) [#/Vol] 4.9 10*3/uL 2.0-7.7 [facility] Anion gap in Serum or Plasma Ordered By: Sawyer Delgado on 01-21-2025 Anion gap [Moles/Vol] 11 mmol/L 5-15 [facility] Automated blood erythrocyte countOrdered By: Sawyer Delgado on 01-21-2025 RBC (Bld) [#/Vol] 5.11 10*6/uL Normal 4.6-6.2 [facility] Comment on above: Performed By: #### L 500.4050, L100.0100 #### [facility] [address] [place], [address] Automated blood hematocrit ( percentage)Ordered By: Sawyer Delgado on 01-21-2025 Hematocrit (Bld) [Volume fraction] 44.8 % Normal 40-54 [facility] Comment on above: Performed By: #### L 500.4050, L100.0100 #### [facility] [address] [place], [address] Automated lymphocyte count a s percentage of total leukocytesOrdered By: Sawyer Delgado on 01-21-2025 Lymphocytes/100 WBC Auto (Unsp spec) 12.9 % Low 19-41 [facility] BUN/creatinine ratioOrdered By: Sawyer Delgado on 01-21-2025 Urea nitrogen/Creatinine [Mass ratio] 14.9 mg/mg 10-20 [facility] Basophil percentageOrdered B y: Sawyer Delgado on 01-21-2025 Basophils/100 WBC (Bld) 0.9 % Normal 0-[address] [facility] Comment on above: Performed By: #### L 500.4050, L100.0100 #### [facility] [address] [place], [address] Bilirubin, totalOrdered By: Sawyer Delgado on 01-21-2025 Bilirubin [Mass/Vol] 0.42 mg/dL Normal 0.00-1.30 [facility] Comment on above: Performed By: #### L 500.4050, L100.0100 #### [facility] [address] [place], [address] CBC W/Diff, Automatedon Absolute Lymph 0.88 X10 3/uL Normal 0.83-4.51 [facility] Comment on above: Performed By: #### L 500.4050, L100.0100 #### [facility] [address] [place], [address] Absolute Neut 4.9 X10 3/uL Normal 2.0-7.7 [facility] Comment on above: Performed By: #### L 500.4050, L100.0100 #### [facility] [address] [place], [address] IG% 0.300 Normal 0.0-0.9 [facility] Comment on above: Result Comment: IG% - Immature Granulocytes (promyelocytes, myelocytes and metamyelocytes) > 1% indicates that a LEFT SHIFT is Present. Performed By: #### L 500.4050, L100.0100 #### [facility] [address] [place], [address] Lymphocytes/100 WBC (Bld) 12.9 % Low 19-41 [facility] Comment on above: Performed By: #### L 500.4050, L100.0100 #### [facility] [address] [place], [address] Nucleated RBC (Bld) [#/Vol] 0 10*3/uL Normal 0-5 [facility] Comment on above: Performed By: #### L 500.4050, L100.0100 #### [facility] [address] [place], [address] RDW SD 43.6 fl Normal 35.1-43.9 [facility] Comment on above: Performed By: #### L 500.4050, L100.0100 #### [facility] [address] [place], [address] Carbon dioxide, total [Moles /volume] in Central venous bloodOrdered By: Sawyer Delgado on 01-21-2025 CO2 [Moles/Vol] 23.0 mmol/L Normal 21.0-32.0 [facility] Comment on above: Performed By: #### L 500.4050, L100.0100 #### [facility] [address] [place], [address] Chloride assayOrdered By: Christin Delgado on 01-21-2025 Chloride [Moles/Vol] 105 mmol/L Normal 98-108 [facility] Comment on above: Performed By: #### L 500.4050, L100.0100 #### [facility] [address] [place], [address] Comprehensive Metabolic Prof ilon 01-21-2025 ALK PHOS 80 U/L Normal 40-129 [facility] Comment on above: Performed By: #### L 500.4050, L100.0100 #### [facility] [address] [place], [address] BUN/CRE 14.9 RATIO Normal 10-20 [facility] Comment on above: Performed By: #### L 500.4050, L100.0100 #### [facility] [address] [place], [address] ECRCL 120.48 ml/min Normal 50-250 [facility] Comment on above: Performed By: #### L 500.4050, L100.0100 #### [facility] [address] [place], [address] GAP 11 Normal 5-15 [facility] Comment on above: Performed By: #### L 500.4050, L100.0100 #### [facility] [address] [place], [address] Potassium [Moles/Vol] 4.3 mmol/L Normal 3.3-5.1 [facility] Comment on above: Performed By: #### L 500.4050, L100.0100 #### [facility] [address] [place], [address] T PROT 7.6 g/dL Normal 5.9-8.4 [facility] Comment on above: Performed By: #### L 500.4050, L100.0100 #### [facility] [address] [place], [address] Comprehensive Metabolic Prof ilOrdered By: Sawyer Delgado on 01-21-2025 AST [Catalytic activity/Vol] 30 U/L Normal <=37 [facility] Comment on above: Performed By: #### L 500.4050, L100.0100 #### [facility] [address] [place], [address] Eosinophil percentageOrdered By: Sawyer Delgado on 01-21-2025 Eosinophils/100 WBC (Bld) 5.3 % High 0-5 [facility] Comment on above: Performed By: #### L 500.4050, L100.0100 #### [facility] [address] [place], [address] Erythrocyte distribution wid th ratioOrdered By: Sawyer Delgado on 01-21-2025 Erythrocyte distribution width (RBC) [Ratio] 13.6 % Normal 11.6-14.6 [facility] Comment on above: Performed By: #### L 500.4050, L100.0100 #### [facility] [address] [place], [address] Erythrocyte distribution wid th standard deviationOrdered By: Sawyer Delgado on 01-21-2025 Erythrocyte distribution width (RBC) [Ratio] 43.6 fl 35.1-43.9 [facility] Glomerular filtration rate ( GFR) estimation/1.73 sq m using serum, plasma, or whole bOrdered By: Sawyer Delgado on 01-21-2025 GFR/1.73 sq M.predicted among non-blacks MDRD (S/P/Bld) [Vol rate/Area] 99 mL/min/{1.73_m2} Normal >60 [facility] Comment on above: mL/min/1.73m2 CKD-EP I Creatinine Equation (2020) Result Comment: mL/m in/1.73m2 CKD-EPI Creatinine Equation (2020) Performed By: #### L 500.4050, L100.0100 #### [facility] [address] [place], [address] Hemoglobin measurementOrdere d By: Sawyer Delgado on 01-21-2025 Hemoglobin (Bld) [Mass/Vol] 15.2 g/dL Normal 13.0-16.5 [facility] Comment on above: Performed By: #### L 500.4050, L100.0100 #### [facility] [address] [place], [address] Immature granulocytes/100 WB C Auto (Bld)Ordered By: Sawyer Delgado on 01-21-2025 Immature granulocytes/100 WBC (Bld) 0.300 % 0.0-0.9 [facility] Comment on above: IG% - Immature Granu locytes (promyelocytes, myelocytes and metamyelocytes) > 1% indicates that a LEFT SHIFT is Present. MCV (mean corpuscular volume ) determinationOrdered By: Sawyer Delgado on 01-21-2025 MCV (RBC) [Entitic vol] 87.7 fL Normal 80-[address] [facility] Comment on above: Performed By: #### L 500.4050, L100.0100 #### [facility] [address] [place], [address] Magnesiumon 01-21-2025 Magnesium [Mass/Vol] 2.3 mg/dL High 1.5-2.2 [facility] Comment on above: Performed By: #### L 500.4050, L100.0100 #### [facility] [address] [place], [address] Magnesium measurement (mass/ volume)Ordered By: Sawyer Delgado on 01-21-2025 Magnesium (Unsp spec) [Mass/Vol] 2.3 mg/dL High 1.5-2.2 [facility] Mean corpuscular hemoglobin (MCH) determinationOrdered By: Sawyer Delgado on 01-21-2025 MCH (RBC) [Entitic mass] 29.7 pg Normal 27.0-32.0 [facility] Comment on above: Performed By: #### L 500.4050, L100.0100 #### [facility] [address] [place], [address] Mean corpuscular hemoglobin concentration (MCHC) determinationOrdered By: Sawyer Delgado on 01-21-2025 MCHC (RBC) [Mass/Vol] 33.9 g/dL Normal 32-36 [facility] Comment on above: Performed By: #### L 500.4050, L100.0100 #### [facility] [address] [place], [address] Mean platelet volume determi nationOrdered By: Sawyer Delgado on 01-21-2025 Platelet mean volume (Bld) [Entitic vol] 11.1 fL Normal 6.2-12.0 [facility] Comment on above: Performed By: #### L 500.4050, L100.0100 #### [facility] [address] [place], [address] Monocyte percentageOrdered B y: Sawyer Delgado on 01-21-2025 Monocytes/100 WBC (Bld) 8.2 % Normal 0-[address] [facility] Comment on above: Performed By: #### L 500.4050, L100.0100 #### [facility] [address] [place], [address] Neutrophil percentageOrdered By: Anthonytimmy Delgado on 01-21-2025 Neutrophils/100 WBC (Bld) 72.4 % High 47-70 [facility] Comment on above: Performed By: #### L 500.4050, L100.0100 #### [facility] [address] [place], [address] Nucleated red blood cell per centageOrdered By: Sawyer Delgado on 01-21-2025 Nucleated RBC/100 WBC (Bld) [Ratio] 0 % 0-5 [facility] Phosphoruson 01-21-2025 Phosphate [Mass/Vol] 2.6 mg/dL Low 2.7-4.5 [facility] Comment on above: Performed By: #### L 500.4050, L100.0100 #### [facility] [address] [place], [address] Platelet countOrdered By: Christin Delgado on 01-21-2025 Platelets (Bld) [#/Vol] 206 10*3/uL Normal 150-450 [facility] Comment on above: Performed By: #### L 500.4050, L100.0100 #### [facility] [address] [place], [address] Potassium measurement (mass/ volume)Ordered By: Sawyer Delgado on 01-21-2025 Potassium (Unsp spec) [Mass/Vol] 4.3 mmol/L 3.3-5.1 [facility] Serum creatinine measurement (mass/volume)Ordered By: Sawyer Delgado on 01-21-2025 Creatinine [Mass/Vol] 0.79 mg/dL Normal 0.70-1.20 [facility] Comment on above: Performed By: #### L 500.4050, L100.0100 #### [facility] [address] [place], [address] Serum globulin measurementOr dered By: Sawyer Delgado on 01-21-2025 Globulin (S) [Mass/Vol] 3.1 g/dL Normal 2.2-4.2 [facility] Comment on above: Performed By: #### L 500.4050, L100.0100 #### [facility] [address] [place], [address] Serum glucose measurement (m ass/volume)Ordered By: Sawyer Delgado on 01-21-2025 Glucose [Mass/Vol] 132 mg/dL High 70-99 [facility] Comment on above: Performed By: #### L 500.4050, L100.0100 #### [facility] [address] [place], [address] Serum or plasma alanine arciniega otransferase (ALT) measurementOrdered By: Sawyer Delgado on 01-21-2025 ALT [Catalytic activity/Vol] 40 U/L Normal <=46 [facility] Comment on above: Performed By: #### L 500.4050, L100.0100 #### [facility] [address] [place], [address] Serum or plasma albumin mary urement (mass/volume)Ordered By: Sawyer Delgado on 01-21-2025 Albumin [Mass/Vol] 4.5 g/dL Normal 3.4-4.8 [facility] Comment on above: Performed By: #### L 500.4050, L100.0100 #### [facility] [address] [place], [address] Serum or plasma albumin/glob ulin mass ratioOrdered By: Sawyer Delgado on 01-21-2025 Albumin/Globulin [Mass ratio] 1.5 {ratio} Normal 0.9-2.4 [facility] Comment on above: Performed By: #### L 500.4050, L100.0100 #### [facility] [address] [place], [address] Serum or plasma alkaline josé miguel sphatase measurementOrdered By: Sawyer Delgado on 01-21-2025 ALP [Catalytic activity/Vol] 80 U/L 40-129 [facility] Serum or plasma calcium mary urement (mass/volume)Ordered By: Sawyer Delgado on 01-21-2025 Calcium [Mass/Vol] 9.2 mg/dL Normal 7.6-11.0 [facility] Comment on above: Performed By: #### L 500.4050, L100.0100 #### [facility] [address] [place], [address] Serum or plasma urea nitroge n measurement (mass/volume)Ordered By: Sawyer Victormarcos on 01-21-2025 Urea nitrogen [Mass/Vol] 12 mg/dL Normal 4-19 [facility] Comment on above: Performed By: #### L 500.4050, L100.0100 #### [facility] [address] [place], [address] Sodium levelOrdered By: Anthony Victorguero on 01-21-2025 Sodium [Moles/Vol] 139 mmol/L Normal 133-145 [facility] Comment on above: Performed By: #### L 500.4050, L100.0100 #### [facility] [address] [place], [address] Total proteinOrdered By: Glen Victormarcos on 01-21-2025 Protein [Mass/Vol] 7.6 g/dL 5.9-8.4 [facility] White blood cell (WBC) count Ordered By: Sawyer Victormarcos on 01-21-2025 WBC (Bld) [#/Vol] 6.8 10*3/uL Normal 4.4-11.0 [facility] Comment on above: Performed By: #### L 500.4050, L100.0100 #### [facility] [address] [place], [address] Pulmonary Visit Reporton Pulmonary Visit Report [facility] [place] 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 I have recommended that he continue with this therapy. Use albuterol on an as-needed basis. This prescription was updated today. No additional testing at this time. Follow-up in the office in 6 months. Contact the office with any new or worsening symptoms in the meantime. (2) Nicotine dependence, cigarettes, uncomplicated: Status: Chronic Comment: LDCT due May 2025 Plan: Complete smoking cessation is recommended. He remains appropriate for repeat LDCT in May 2025, previously ordered. Follow-up after imaging. Medications: Refilled albuterol sulfate 90 mcg/actuation administer with spacer 2 puffs inhalation Q4H PRN 8.5 grams 6RF shortness of breath or wheezing Plan Follow up with PCP for papule on uvula noted today, unsure if this is acute or chronic. Incidental finding on todays exam, patient is not aware how long this papule has been present. It is not painful. The patient understands that this is present and he should be self monitoring for changes. Plan Details Follow Up: 6 Months (LMR) HPI HPI Comments Details: Patient is a 64-year-old male who presents to the office today for follow-up of his mixed obstructive and restrictive ventilatory impairment. He is ambulatory and currently on room air. He has not recently been seen in the ED or urgent care for any respiratory illness. He has not required any antibiotics or prednisone for any breathing problems. He is reporting use of Trelegy 1 puff daily. He does report rinsing his mouth out after each use. He denies any medication side effect such as sore throat or thrush. He has not recently needed to use his albuterol rescue inhaler. He denies any difficulty with shortness of breath. He denies any cough, sputum production or hemoptysis. He denies any wheezing, chest tightness, chest pain or palpitations. He also denies any fever, chills or body aches. He continues to smoke cigarettes. He is currently smoking 1/2 pack/day. Pulmonary function test completed on May 25, 2024. Impression is grossly normal. Low-dose CT lung screen completed on May 25, 2024. Noted is a mild degree of emphysematous changes. Slight increase in size of the right pleural effusion. Increased markings in the posterior aspect of the right middle lobe with thickening of the right minor fissure suggestive of scarring. Walking oximetry completed on May 28, 2024. The patient was able to ambulate total of 1223 feet over the course of 6 minutes. He did not become hypoxic and does not currently require any supplemental oxygen. Intake Vital Signs 06/29/24 07:47 01/05/25 08:19 Height 6 ft 6 ft Weight: 241 lb BMI 32.6 BP 157/78 H Blood Pressure Location Rt brachial Position Sitting Respiration 20 H Pulse 58 L Pulse Source Monitor Temp 97.7 F L Temperature Source Temporal Artery Pulse Oximetry (%) 96 Oxygen Delivery Method room air Intake Visit Reasons: 6 m fu Price Accuracy Supervisor Required: No DME Vendor: n/a Accompanied by: Self Is patient in pain?: No Allergies No Known Allergies Allergy (Verified 01/05/25 10:45) Medications ???Medication ???Instructions ???Recorded ???Confirmed ???Type aspirin 81 mg tablet,delayed 81 mg PO DAILY 09/02/18 01/05/25 H istory release carvedilol 6.25 mg tablet 6.25 mg PO BID 09/02/18 01/05/25 H istory cholecalciferol (vitamin D3) 25 1,000 unit PO DAILY 09/02/1801/05 History mcg (1,000 unit) capsule ramipril 2.5 mg capsule 2.5 mg PO DAILY 09/02/18 01/05/25 History atorvastatin 80 mg tablet 80 mg PO QHS 12/15/19 01/05/25 His tory vitamin E 200 unit capsule 200 unit PO DAILY 08/25/20 5 History ascorbic acid (vitamin C) 500 mg 500 mg PO Q12H 09/06/22 01/05/25 H istory capsule,extended release bosutinib 100 mg tablet 400 mg PO DAILY 11/06/23 01/05/25 History ibuprofen 600 mg tablet 600 mg PO Q6H PRN fever or pain 01/05/25 Rx #20 tabs fluticasone fur. 100 mcg-umeclid 1 inh inhalation Q24H #60 ea 07/2401/05/25 Rx 62.5 mcg-vilant 25 mcg inhalat.powder (Trelegy Ellipta) gabapentin 300 mg capsule 300 mg PO QDAY 08/03/24 01/05/25 H istory sulfamethoxazole 800 1 tab PO 3XW #36 TABLETS 08/16/24 01/05/25 Rx mg-trimethoprim 160 mg tablet albutero (more content not included)... Normal [facility] Oncology Visit Reporton 10-20 Oncology Visit Report [facility] [place] [address] OFFICE VISIT Date of Service: 11/05/24 1134 MR#: [id number] Acct: [id number] Name: FREDERIC OVALLES Rep #: [id number] : 1960 From: Sawyer Delgado MD Age/Sex: 64/M Location: [facility] – [place].[facility] Status: Signed HPI Subjective Date of Service 11/05/24 Chief Complaint Chronic myeloid leukemia on treatment History of Present Illness 63-year-old gentleman with no known chronic inflammatory or infectious diseases referred in consultation because of a persistent leukocytosis. March 2020 peripheral blood BCR ABL by FISH was positive consistent with chronic myeloid leukemia. Bone marrow aspirate and biopsy April 13, 2020: BONE MARROW DIAGNOSIS Bone marrow biopsy, clot and aspiration (specimens A-C): Hypercellular bone marrow. No stainable iron identified. No evidence of lymphoproliferative disorder. See comment. COMMENT Flow cytometry analysis reveals no increased blasts population. However, myeloid elements exhibit aberrant expression of CD56 and show left shift with down-regulation of CD10 and CD16. The findings are compatible with an underlying primary myeloid neoplasm. The flow cytometry analysis report from [facility] is reviewable in the patient???s EMR. BONE MARROW STUDY Slides are reviewed. CBC DATE: 04/13/20 WBC 22.5; RBC 5.33; HGB 15.8; HCT 48.5; MCV 91.0; RDW 48.2; PLTS 206,000 SEGS 54%; LYMPHS 23%; MONOS 11%; EOS 2%; BASOS 0% PERIPHERAL SMEAR: Submitted. RBC: Normochromic, normomorphic WBC: Neutrophilic leukocytosis with slight left shift. PLTS: Normomorphic BONE MARROW ASPIRATE DIFFERENTIAL: 200 cell count. Blasts % (normal 0-2): 2 Promyelocytes % (normal 1-5): 5 Myelocytes and metamyelocytes % (normal 17-41): 38 Bands and Segs % (normal 15-32): 26 Eos % (normal 1-6): 2 Basos % (normal 0-1): 0 Monocytes % (normal 0-4): 2 Erythroid Precursors % (normal 17-35): 18 Lymphocytes % (normal 7-13): 7 Plasma Cells % (normal 0-2): 0 ASPIRATE FINDINGS: Site: Not specified Paucispicular Cellular M/E ratio: Within normal limits (Normal 1.5 - 4.0) Megakaryocytes: Adequate Erythropoiesis: Progressive Granulopoiesis: Normoblastic CORE BIOPSY FINDINGS: Site: Not specified Adequacy: No bone present Cellularity %: Not applicable M/E ratio: Not applicable Blood Only rare marrow cell noted. ASPIRATE CLOT FINDINGS: Site: Not specified Marrow Particles: Many Cellularity %: 80% M/E ratio: Within normal limits Megakaryocytes: Adequate Granuloma(s): 0 Lymphoid aggregate(s): 0 Atypical infiltrate(s): 0 SPECIAL STAINS (with matched controls): Iron: Stainable iron not present Reticulin: Within normal limits PAS: Highlights myeloid elements and megakaryocytes. ADDENDUM FISH BCR/ABL1 REPORT FROM [facility] INTERPRETATION: BCR/ABL gene rearrangement is detected. RESULTS: BCR/ABL1 Normal Nuclei Positive Nuclei with Dual Fusion 3.33% 96.67% CYTOGENETICS REPORT FROM [facility] INTERPRETATION: Abnormal male karyotype was observed in twenty metaphases analyzed. 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) History of ST elevation myocardial infarction (STEMI) (01/20/17) Hyperlipidemia Essential (primary) hypertension Nicotine dependence Atherosclerosis of coronary artery of [place] heart without angina pectoris Obesity (BMI 30.0-34.9) Hiatal hernia with GERD History of back problems Surgical History Status post laser lithotripsy of ureteral calculus History of bone marrow biopsy (04/13/20) History of bilateral inguinal hernia repair (08/2018) Status post laparoscopic Migue fundoplication (10/15/18) History of coronary artery stent placement (01/20/17) Family History Father Colon cancer Diabetes Heart disease Hypertension CAD (coronary artery disease) Sister Breast cancer Mother CAD (coronary artery disease) Hypertension Heart disease Social History (Re (more content not included)... Normal [facility].on 10-27-2024 [facility]. COMMENT Normal . [facility] Comment on above: Order Comment: [id number] 1BCR NA HEP WB RTEMP Result Comment: Test Ordered: [id number] BCR-ABL1, CML/ALL, PCR, Quant e13a2 (b2a2) transcript <0.0032 % % Reference Range: . e14a2 (b3a2) transcript <0.0032 % % Reference Range: . e1a2 transcript <0.0032 % % Reference Range: . Interpretation: Negative LUU Reference Range: . NEGATIVE for the BCR-ABL1 e1a2 (p190), e13a2 (b2a2, p210) and e14a2 (b3a2, p210) fusion transcripts. These results do not rule out the presence of rare BCR-ABL1 transcripts not detected by this assay. Director Review Comment LUU Reference Range: . Technical Component performed at [facility] Professional Component performed by: Yaquelin Mckeon, PhD, [facility] Director, Molecular Oncology [facility] [id number], [address] [address] Background Comment LUU Reference Range: . This assay can detect three different types of BCR-ABL1 fusion transcripts associated with CML, ALL, and AML: e13a2 (previously b2a2) and e14a2 (previously b3a2) (major breakpoint, p210), as well as e1a2 (minor breakpoint, p190). The e13a2 and e14a2 transcript values are titrated to the current International Scale (IS). The standardized baseline is 100% BCR-ABL1 (IS) and major molecular response (MMR) is equivalent to 0.1% BCR-ABL1 (IS) corresponding to a 3-log reduction. Results should be correlated with appropriate clinical and laboratory information as indicated. Methodology Comment Reference Range: . Total RNA is isolated from the sample and subject to a real- time, reverse transcriptase polymerase chain reaction (RT- PCR). The PCR primers and probes are specific for BCR-ABL1 e13a2, e14a2 and e1a2 fusion transcripts. The ABL1 transcript is amplified as the control for cDNA quantity and quality. Serial dilutions of a validated positive control RNA with known t(9;22) BCR-ABL1 are used as reference for quantification of BCR-ABL1 relative to ABL1. The numeric BCR-ABL1 level is reported as % BCR- ABL1/ABL1 and the detection sensitivity is 4.5 log below the standard baseline (<0.0032%). This test was developed and its performance characteristics determined by [employer]. It has not been cleared or approved by the Food and Drug Administration. References Comment Reference Range: . 1) Israel Mcgrath, Allyson S. Molecular monitoring of chronic myeloid leukemia. Semin Hematol. 2003 Apr; 40(2 Suppl 2):62-68. 2) NCCN Clinical Practice Guidelines in Oncology Chronic Myeloid Leukemia Version 1.2024 - February 27, 2024 3) Dileep Hoffman P, Elina P, et al. Establishment of the of the first World Health Organization International Genetic Reference Panel for quantitation of BCR-ABL mRNA. Blood. 2010 25; 116(22):v630-388. Performed at: [facility] [address] [facility], [place] [id number] [employer] Front Desk Clerk: Sherri Davey [facility], Phone: [phone] Performed at: [facility] [address] [facility] [facility] [place] [id number] [employer] Front Desk Clerk: Sherri Davey [facility], Phone: [phone] Performed at: [address] [id number] [employer] Front Desk Clerk: Michael Ragsdale PhD, Phone: [phone] Performed By: #### L 500.4050, L100.0100 #### [facility] [address] [place] [address], [id number] Absolute lymphocyte countOrd ered By: Anthonytimmy Delgado on 10-22-2024 Lymphocytes Auto (Unsp spec) [#/Vol] 1.30 10*3/uL 0.83-4.51 [facility] Absolute neutrophil countOrd ered By: [facility] Hospital[facility] Delgado on 10-22-2024 Neutrophils (Bld) [#/Vol] 5.1 10*3/uL 2.0-7.7 [facility] Anion gap in Serum or Plasma Ordered By: Sawyer Delgado on 10-22-2024 Anion gap [Moles/Vol] 11 mmol/L 5-15 [facility] Automated blood erythrocyte countOrdered By: [facility] Hospitaltimmy Delgado on 10-22-2024 RBC (Bld) [#/Vol] 5.16 10*6/uL Normal 4.6-6.2 [facility] Comment on above: Performed By: #### L 500.4050, L100.0100 #### [facility] [address] [place], [place], [id number] Automated blood hematocrit ( percentage)Ordered By: [facility] Hospitaltimmy Delgado on 10-22-2024 Hematocrit (Bld) [Volume fraction] 44.9 % Normal 40-54 [facility] Comment on above: Performed By: #### L 500.4050, L100.0100 #### [facility] [address] [place], [place], [id number] Automated lymphocyte count a s percentage of total leukocytesOrdered By: Sawyer Delgado on 10-22-2024 Lymphocytes/100 WBC Auto (Unsp spec) 17.3 % Low 19-41 [facility] BUN/creatinine ratioOrdered By: [facility] Hospitaltimmy Delgado on 10-22-2024 Urea nitrogen/Creatinine [Mass ratio] 15.1 mg/mg 10-20 [facility] Basophil percentageOrdered B y: Sawyer Delgado on 10-22-2024 Basophils/100 WBC (Bld) 1.1 % High 0-[address] [facility] Comment on above: Performed By: #### L 500.4050, L100.0100 #### [facility] [address] [place], [address] Bilirubin, totalOrdered By: Sawyer Delgado on 10-22-2024 Bilirubin [Mass/Vol] 0.33 mg/dL Normal 0.00-1.30 [facility] Comment on above: Performed By: #### L 500.4050, L100.0100 #### [facility] [address] [place], [address] CBC W/Diff, Automatedon Absolute Lymph 1.30 X10 3/uL Normal 0.83-4.51 [facility] Comment on above: Performed By: #### L 500.4050, L100.0100 #### [facility] [address] [place], [address] Absolute Neut 5.1 X10 3/uL Normal 2.0-7.7 [facility] Comment on above: Performed By: #### L 500.4050, L100.0100 #### [facility] [address] [place], [address] IG% 0.300 Normal 0.0-0.9 [facility] Comment on above: Result Comment: IG% - Immature Granulocytes (promyelocytes, myelocytes and metamyelocytes) > 1% indicates that a LEFT SHIFT is Present. Performed By: #### L 500.4050, L100.0100 #### [facility] [address] [place], [address] Lymphocytes/100 WBC (Bld) 17.3 % Low 19-41 [facility] Comment on above: Performed By: #### L 500.4050, L100.0100 #### [facility] [address] [place], [address] Nucleated RBC (Bld) [#/Vol] 0 10*3/uL Normal 0-5 [facility] Comment on above: Performed By: #### L 500.4050, L100.0100 #### [facility] [address] [place], [address] RDW SD 42.6 fl Normal 35.1-43.9 [facility] Comment on above: Performed By: #### L 500.4050, L100.0100 #### [facility] [address] [place], [address] Carbon dioxide, total [Moles /volume] in Central venous bloodOrdered By: Sawyer Delgado on 10-22-2024 CO2 [Moles/Vol] 24.1 mmol/L Normal 21.0-32.0 [facility] Comment on above: Performed By: #### L 500.4050, L100.0100 #### [facility] [address] [place], [address] Chloride assayOrdered By: Christin Delgado on 10-22-2024 Chloride [Moles/Vol] 102 mmol/L Normal 98-108 [facility] Comment on above: Performed By: #### L 500.4050, L100.0100 #### [facility] [address] [place], [address] Comprehensive Metabolic Prof ilon 10-22-2024 ALK PHOS 75 U/L Normal 40-129 [facility] Comment on above: Performed By: #### L 500.4050, L100.0100 #### [facility] [address] [place], [address] BUN/CRE 15.1 RATIO Normal 10-20 [facility] Comment on above: Performed By: #### L 500.4050, L100.0100 #### [facility] [address] [place], [address] ECRCL 102.76 ml/min Normal 50-250 [facility] Comment on above: Performed By: #### L 500.4050, L100.0100 #### [facility] [address] [place], [address] GAP 11 Normal 5-15 [facility] Comment on above: Performed By: #### L 500.4050, L100.0100 #### [facility] [address] [place], [address] Potassium [Moles/Vol] 4.4 mmol/L Normal 3.3-5.1 [facility] Comment on above: Performed By: #### L 500.4050, L100.0100 #### [facility] [address] [place], [address] T PROT 7.5 g/dL Normal 5.9-8.4 [facility] Comment on above: Performed By: #### L 500.4050, L100.0100 #### [facility] [address] [place], [address] Comprehensive Metabolic Prof ilOrdered By: Sawyer Delgado on 10-22-2024 AST [Catalytic activity/Vol] 26 U/L Normal <=37 [facility] Comment on above: Performed By: #### L 500.4050, L100.0100 #### [facility] [address] [place], [address] Eosinophil percentageOrdered By: Sawyer Delgado on 10-22-2024 Eosinophils/100 WBC (Bld) 4.6 % Normal 0-5 [facility] Comment on above: Performed By: #### L 500.4050, L100.0100 #### [facility] [address] [place], [address] Erythrocyte distribution wid th ratioOrdered By: Sawyer Delgado on 10-22-2024 Erythrocyte distribution width (RBC) [Ratio] 13.4 % Normal 11.6-14.6 [facility] Comment on above: Performed By: #### L 500.4050, L100.0100 #### [facility] [address] [place], [place], [address] Erythrocyte distribution wid th standard deviationOrdered By: Sawyer Delgado on 10-22-2024 Erythrocyte distribution width (RBC) [Ratio] 42.6 fl 35.1-43.9 [facility] Glomerular filtration rate ( GFR) estimation/1.73 sq m using serum, plasma, or whole bOrdered By: Sawyer Delgado on 10-22-2024 GFR/1.73 sq M.predicted among non-blacks MDRD (S/P/Bld) [Vol rate/Area] 93 mL/min/{1.73_m2} Normal >60 [facility] Comment on above: mL/min/1.73m2 CKD-EP I Creatinine Equation (2020) Result Comment: mL/m in/1.73m2 CKD-EPI Creatinine Equation (2020) Performed By: #### L 500.4050, L100.0100 #### [facility] [address] [place], [place], [id number] Hemoglobin measurementOrdere d By: Sawyer Delgado on 10-22-2024 Hemoglobin (Bld) [Mass/Vol] 15.2 g/dL Normal 13.0-16.5 [facility] Comment on above: Performed By: #### L 500.4050, L100.0100 #### [facility] [address] [place], [place], [id number] Immature granulocytes/100 WB C Auto (Bld)Ordered By: Sawyer Delgado on 10-22-2024 Immature granulocytes/100 WBC (Bld) 0.300 % 0.0-0.9 [facility] Comment on above: IG% - Immature Granu locytes (promyelocytes, myelocytes and metamyelocytes) > 1% indicates that a LEFT SHIFT is Present. LDHon 10-22-2024 LDH 191 U/L Normal 87-241 [facility] Comment on above: Order Comment: 1 Result Comment: Hemo lysis present, Results??could be affected. ?? Performed By: #### L 500.4050, L100.0100 #### [facility] [address] [place], [address] Lactate dehydrogenase (LDH) measurementOrdered By: Sawyer Delgado on 10-22-2024 LDH [Catalytic activity/Vol] 191 U/L 87-241 [facility] Comment on above: Hemolysis present, R esults could be affected. MCV (mean corpuscular volume ) determinationOrdered By: Sawyer Delgado on 10-22-2024 MCV (RBC) [Entitic vol] 87.0 fL Normal 80-[address] [facility] Comment on above: Performed By: #### L 500.4050, L100.0100 #### [facility] [address] [place], [address] Mean corpuscular hemoglobin (MCH) determinationOrdered By: Sawyer Delgado on 10-22-2024 MCH (RBC) [Entitic mass] 29.5 pg Normal 27.0-32.0 [facility] Comment on above: Performed By: #### L 500.4050, L100.0100 #### [facility] [address] [place], [address] Mean corpuscular hemoglobin concentration (MCHC) determinationOrdered By: Sawyer Delgado on 10-22-2024 MCHC (RBC) [Mass/Vol] 33.9 g/dL Normal 32-36 [facility] Comment on above: Performed By: #### L 500.4050, L100.0100 #### [facility] [address] [place], [address] Mean platelet volume determi nationOrdered By: Sawyer Delgado on 10-22-2024 Platelet mean volume (Bld) [Entitic vol] 10.4 fL Normal 6.2-12.0 [facility] Comment on above: Performed By: #### L 500.4050, L100.0100 #### [facility] [address] [place], [address] Monocyte percentageOrdered B y: Sawyer Delgado on 10-22-2024 Monocytes/100 WBC (Bld) 9.2 % Normal 0-[address] [facility] Comment on above: Performed By: #### L 500.4050, L100.0100 #### [facility] [address] [place], [address] Neutrophil percentageOrdered By: Sawyer Delgado on 10-22-2024 Neutrophils/100 WBC (Bld) 67.5 % Normal 47-70 [facility] Comment on above: Performed By: #### L 500.4050, L100.0100 #### [facility] [address] [place], [address] Nucleated red blood cell per centageOrdered By: Sawyer Delgado on 10-22-2024 Nucleated RBC/100 WBC (Bld) [Ratio] 0 % 0-5 [facility] Platelet countOrdered By: Christin Delgado on 10-22-2024 Platelets (Bld) [#/Vol] 214 10*3/uL Normal 150-450 [facility] Comment on above: Performed By: #### L 500.4050, L100.0100 #### [facility] [address] [place], [address] Potassium measurement (mass/ volume)Ordered By: Sawyer Delgado on 10-22-2024 Potassium (Unsp spec) [Mass/Vol] 4.4 mmol/L 3.3-5.1 [facility] Serum creatinine measurement (mass/volume)Ordered By: Sawyer Delgado on 10-22-2024 Creatinine [Mass/Vol] 0.92 mg/dL Normal 0.70-1.20 [facility] Comment on above: Performed By: #### L 500.4050, L100.0100 #### [facility] [address] [place], [address] Serum globulin measurementOr dered By: Sawyer Delgado on 10-22-2024 Globulin (S) [Mass/Vol] 3.0 g/dL Normal 2.2-4.2 [facility] Comment on above: Performed By: #### L 500.4050, L100.0100 #### [facility] [address] [place], [address] Serum glucose measurement (m ass/volume)Ordered By: Sawyer Delgado on 10-22-2024 Glucose [Mass/Vol] 126 mg/dL High 70-99 [facility] Comment on above: Performed By: #### L 500.4050, L100.0100 #### [facility] [address] [place], [address] Serum or plasma alanine arciniega otransferase (ALT) measurementOrdered By: Sawyer Delgado on 10-22-2024 ALT [Catalytic activity/Vol] 26 U/L Normal <=46 [facility] Comment on above: Performed By: #### L 500.4050, L100.0100 #### [facility] [address] [place], [address] Serum or plasma albumin mary urement (mass/volume)Ordered By: Sawyer Delgado on 10-22-2024 Albumin [Mass/Vol] 4.5 g/dL Normal 3.4-4.8 [facility] Comment on above: Performed By: #### L 500.4050, L100.0100 #### [facility] [address] [place], [address] Serum or plasma albumin/glob ulin mass ratioOrdered By: Sawyer Delgado on 10-22-2024 Albumin/Globulin [Mass ratio] 1.5 {ratio} Normal 0.9-2.4 [facility] Comment on above: Performed By: #### L 500.4050, L100.0100 #### [facility] [address] [place], [address] Serum or plasma alkaline josé miguel sphatase measurementOrdered By: Sawyer Delgado on 10-22-2024 ALP [Catalytic activity/Vol] 75 U/L 40-129 [facility] Serum or plasma calcium mary urement (mass/volume)Ordered By: Sawyer Danny on 10-22-2024 Calcium [Mass/Vol] 9.3 mg/dL Normal 7.6-11.0 [facility] Comment on above: Performed By: #### L 500.4050, L100.0100 #### [facility] [address] [place], [address] Serum or plasma urea nitroge n measurement (mass/volume)Ordered By: Sawyer Danny on 10-22-2024 Urea nitrogen [Mass/Vol] 14 mg/dL Normal 4-19 [facility] Comment on above: Performed By: #### L 500.4050, L100.0100 #### [facility] [address] [place], [address] Sodium levelOrdered By: Anthony warner Danny on 10-22-2024 Sodium [Moles/Vol] 137 mmol/L Normal 133-145 [facility] Comment on above: Performed By: #### L 500.4050, L100.0100 #### [facility] [address] [place], [place], [address] Total proteinOrdered By: Glen calvert Danny on 10-22-2024 Protein [Mass/Vol] 7.5 g/dL 5.9-8.4 [facility] White blood cell (WBC) count Ordered By: Sawyer Danny on 10-22-2024 WBC (Bld) [#/Vol] 7.5 10*3/uL Normal 4.4-11.0 [facility] Comment on above: Performed By: #### L 500.4050, L100.0100 #### [facility] [address] [place], [address] Oncology Visit Reporton 07-22 Oncology Visit Report [facility] [address] [place] [address] OFFICE VISIT Date of Service: 08/03/24 1023 MR#: [id number] Acct: [id number] Name: FREDERIC OVALLES Rep #: [id number] : 1960 From: Sawyer Delgado MD Age/Sex: 64/M Location: [facility] [place] Status: Signed HPI Subjective Date of Service 08/03/24 Chief Complaint Chronic myeloid leukemia on treatment History of Present Illness 63-year-old gentleman with no known chronic inflammatory or infectious diseases referred in consultation because of a persistent leukocytosis. March 2020 peripheral blood BCR ABL by FISH was positive consistent with chronic myeloid leukemia. Bone marrow aspirate and biopsy April 13, 2020: BONE MARROW DIAGNOSIS Bone marrow biopsy, clot and aspiration (specimens A-C): Hypercellular bone marrow. No stainable iron identified. No evidence of lymphoproliferative disorder. See comment. COMMENT Flow cytometry analysis reveals no increased blasts population. However, myeloid elements exhibit aberrant expression of CD56 and show left shift with down-regulation of CD10 and CD16. The findings are compatible with an underlying primary myeloid neoplasm. The flow cytometry analysis report from [facility] is reviewable in the patient???s EMR. BONE MARROW STUDY Slides are reviewed. CBC DATE: 04/13/20 WBC 22.5; RBC 5.33; HGB 15.8; HCT 48.5; MCV 91.0; RDW 48.2; PLTS 206,000 SEGS 54%; LYMPHS 23%; MONOS 11%; EOS 2%; BASOS 0% PERIPHERAL SMEAR: Submitted. RBC: Normochromic, normomorphic WBC: Neutrophilic leukocytosis with slight left shift. PLTS: Normomorphic BONE MARROW ASPIRATE DIFFERENTIAL: 200 cell count. Blasts % (normal 0-2): 2 Promyelocytes % (normal 1-5): 5 Myelocytes and metamyelocytes % (normal 17-41): 38 Bands and Segs % (normal 15-32): 26 Eos % (normal 1-6): 2 Basos % (normal 0-1): 0 Monocytes % (normal 0-4): 2 Erythroid Precursors % (normal 17-35): 18 Lymphocytes % (normal 7-13): 7 Plasma Cells % (normal 0-2): 0 ASPIRATE FINDINGS: Site: Not specified Paucispicular Cellular M/E ratio: Within normal limits (Normal 1.5 - 4.0) Megakaryocytes: Adequate Erythropoiesis: Progressive Granulopoiesis: Normoblastic CORE BIOPSY FINDINGS: Site: Not specified Adequacy: No bone present Cellularity %: Not applicable M/E ratio: Not applicable Blood Only rare marrow cell noted. ASPIRATE CLOT FINDINGS: Site: Not specified Marrow Particles: Many Cellularity %: 80% M/E ratio: Within normal limits Megakaryocytes: Adequate Granuloma(s): 0 Lymphoid aggregate(s): 0 Atypical infiltrate(s): 0 SPECIAL STAINS (with matched controls): Iron: Stainable iron not present Reticulin: Within normal limits PAS: Highlights myeloid elements and megakaryocytes. ADDENDUM FISH BCR/ABL1 REPORT FROM [facility] INTERPRETATION: BCR/ABL gene rearrangement is detected. RESULTS: BCR/ABL1 Normal Nuclei Positive Nuclei with Dual Fusion 3.33% 96.67% CYTOGENETICS REPORT FROM [facility] INTERPRETATION: Abnormal male karyotype was observed in twenty metaphases analyzed. 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) History of ST elevation myocardial infarction (STEMI) (01/20/17) Hyperlipidemia Essential (primary) hypertension Nicotine dependence Atherosclerosis of coronary artery of [place] heart without angina pectoris Obesity (BMI 30.0-34.9) Hiatal hernia with GERD History of back problems Surgical History Status post laser lithotripsy of ureteral calculus History of bone marrow biopsy (04/13/20) History of bilateral inguinal hernia repair (08/2018) Status post laparoscopic Migue fundoplication (10/15/18) History of coronary artery stent placement (01/20/17) Family History Father Colon cancer Diabetes Heart disease Hypertension CAD (coronary artery disease) Sister Breast cancer Mother CAD (coronary artery disease) Hypertension Heart disease Social History (Re (more content not included)... Normal [facility] BCR/ABL BLOOD OR BONE MARROW ,T(9;22),QUANTon 07-28-2024 Receiving Status Accessioned in Lab Normal [facility] Comment on above: Performed By: #### B CR/ABL BLOOD OR BONE MARROW,T(9;22),QUANT #### [facility] (DEFAULT) [address] [place] [address] CBC AND ELECTRONIC DIFFon Basophils (Bld) [#/Vol] 0.08 10*3/uL 0.00 - 0.09 K/uL [facility] Basophils/100 WBC (Bld) 1.1 % O [facility] Differential cell count method Nom (Bld) Electronic Differential [facility] Eosinophils (Bld) [#/Vol] 0.37 10*3/uL 0.00 - 0.48 K/uL [facility] Eosinophils/100 WBC (Bld) 5.0 % [facility] Erythrocyte distribution width (RBC) [Ratio] 13.3 % 10.9 - 14.3 % [facility] Hematocrit (Bld) [Volume fraction] 45.3 % 39.6 - 48.8 % [facility] Hemoglobin (Bld) [Mass/Vol] 15.0 g/dL 13.4 - 16.8 g/dL [facility] Immature granulocytes (Bld) [#/Vol] K/uL NINF - 0.07 K/uL [facility] Immature granulocytes/100 WBC (Bld) 0.3 % [facility] Lymphocytes (Bld) [#/Vol] 1.58 10*3/uL 0.83 - 3.57 K/uL [facility] Lymphocytes/100 WBC (Bld) 21.6 % [facility] MCH (RBC) [Entitic mass] 29.0 pg 26.1 - 33.3 pg [facility] MCHC (RBC) [Mass/Vol] 33.1 g/dL 31.9 - 36.5 g/dL [facility] MCV (RBC) [Entitic vol] 87.5 fL 79.0 - 94.5 fL [facility] Monocytes (Bld) [#/Vol] 0.74 10*3/uL 0.24 - 0.93 K/uL [facility] Monocytes/100 WBC (Bld) 10.1 % O [facility] Neutrophils (Bld) [#/Vol] 4.54 10*3/uL 1.57 - 6.19 K/uL [facility] Nucleated RBC/100 WBC (Bld) [Ratio] 0.0 % NINF [facility] Platelet mean volume (Bld) [Entitic vol] 10.5 fL 8.7 - 12.3 fL [facility] Hospital Platelets (Bld) [#/Vol] 232 10*3/uL 146 - 337 K/uL [facility] RBC (Bld) [#/Vol] 5.18 10*6/uL [facility] Segmented neutrophils/100 WBC (Bld) 61.9 % [facility] WBC (Bld) [#/Vol] 7.33 10*3/uL 3.73 - 10.10 K/uL [facility] Basophils (Bld) [#/Vol] 0.08 10*3/uL Normal 0.00-0.09 [facility] Comment on above: Performed By: #### L AB980 #### [facility] (DEFAULT) [address] [address] Basophils/100 WBC (Bld) 1.1 % Normal [facility] Comment on above: Performed By: #### L AB980 #### [facility] (DEFAULT) [address] [address] DIFF STATUS Electronic Differential Normal [facility] Comment on above: Performed By: #### L AB980 #### [facility] (DEFAULT) [address] [address] Eosinophils (Bld) [#/Vol] 0.37 10*3/uL Normal 0.00-0.48 [facility] Comment on above: Performed By: #### L AB980 #### [facility] (DEFAULT) [address] [address] Eosinophils/100 WBC (Bld) 5.0 % Normal [facility] Comment on above: Performed By: #### L AB980 #### [facility] (DEFAULT) [address] [address] Hematocrit (Bld) [Volume fraction] 45.3 % Normal 39.6-48.8 [facility] Comment on above: Performed By: #### L AB980 #### [facility] (DEFAULT) [address] [address] Hemoglobin (Bld) [Mass/Vol] 15.0 g/dL Normal 13.4-16.8 [facility] Comment on above: Performed By: #### L AB980 #### [facility] (DEFAULT) [address] [address] Immature Grans % 0.3 % Normal [facility] Comment on above: Performed By: #### L AB980 #### [facility] (DEFAULT) [address] [address] Immature Grans Absolute < Normal <=0.07 [facility] Comment on above: Performed By: #### L AB980 #### [facility] (DEFAULT) [address] [address] Lymphocytes (Bld) [#/Vol] 1.58 10*3/uL Normal 0.83-3.57 [facility] Comment on above: Performed By: #### L AB980 #### [facility] (DEFAULT) [address] [address] Lymphocytes/100 WBC (Bld) 21.6 % Normal [facility] Comment on above: Performed By: #### L AB980 #### [facility] (DEFAULT) [address] [address] MCV (RBC) [Entitic vol] 87.5 fL Normal 79.0-94.5 [facility] Comment on above: Performed By: #### L AB980 #### [facility] (DEFAULT) [address] [place] [address] Mean Cell Hgb 29.0 pg Normal 26.1-33.3 [facility] Comment on above: Performed By: #### L AB980 #### [facility] (DEFAULT) [address] [address] Mean Cell Hgb Conc 33.1 g/dL Normal 31.9-36.5 [facility] Comment on above: Performed By: #### L AB980 #### [facility] (DEFAULT) [address] [address] Monocytes (Bld) [#/Vol] 0.74 10*3/uL Normal 0.24-0.93 [facility] Comment on above: Performed By: #### L AB980 #### [facility] (DEFAULT) [address] [address] Monocytes/100 WBC (Bld) 10.1 % Normal [facility] Comment on above: Performed By: #### L AB980 #### [facility] (DEFAULT) [address] [address] Nucleated RBC 0.0 /100 WBC Normal <=0.2 [facility] Comment on above: Performed By: #### L AB980 #### [facility] (DEFAULT) [address] [address] Platelet mean volume (Bld) [Entitic vol] 10.5 fL Normal 8.7-12.3 [facility] Comment on above: Performed By: #### L AB980 #### [facility] (DEFAULT) [address] [place] [address] Platelets (Bld) [#/Vol] 232 10*3/uL Normal 146-337 [facility] Comment on above: Performed By: #### L AB980 #### [facility] (DEFAULT) [address] [place] [address] RBC (Bld) [#/Vol] 5.18 10*6/uL Normal 4.38-5.83 [facility] Comment on above: Performed By: #### L AB980 #### [facility] (DEFAULT) [address] [place] [address] RBC Distribution 13.3 % Normal 10.9-14.[address] [facility] Comment on above: Performed By: #### L AB980 #### [facility] (DEFAULT) [address] [place] [address] Segs + Bands Auto 61.9 % Normal [facility] Comment on above: Performed By: #### L AB980 #### [facility] (DEFAULT) [address] [place] [address] Segs + Bands,Absolute Auto 4.54 K/uL Normal 1.57-6.19 [facility] Comment on above: Performed By: #### L AB980 #### [facility] (DEFAULT) [address] [place] [address] WBC (Bld) [#/Vol] 7.33 10*3/uL Normal 3.73-10.10 [facility] Comment on above: Performed By: #### L AB980 #### [facility] (DEFAULT) [address] [address] COMPREHENSIVE METABOLIC PANE Cezar 07-28-2024 Albumin [Mass/Vol] 4.7 g/dL 3.5 - 5.0 g/dL [facility] ALP [Catalytic activity/Vol] 65 U/L 32 - 126 U/L [facility] ALT [Catalytic activity/Vol] 23 U/L 10 - 52 U/L [facility] Anion gap [Moles/Vol] 9 mmol/L 7 - 17 mmol/L [facility] AST [Catalytic activity/Vol] 21 U/L 10 - 39 U/L [facility] Bilirubin [Mass/Vol] 0.4 mg/dL NINF - 1.5 mg/dL [facility] Calcium [Mass/Vol] 9.1 mg/dL 8.6 - 10. 5 mg/dL [facility] Chloride [Moles/Vol] 104 mmol/L 98 - 10 8 mmol/L [facility] CO2 [Moles/Vol] 28 mmol/L 21 - 31 mmol/L [facility] Creatinine [Mass/Vol] 0.97 mg/dL 0.70 - 1.30 mg/dL [facility] eGFR, CKD-EPI, Male 87 - PINF [facility] Comment on above: Reported eGFR is bas ed on the CKD-EPI 2020 equation using creatinine, age, and sex. Glucose [Mass/Vol] 117 mg/dL High 70 - 99 mg/dL [facility] Interpretation and review of laboratory results Abnormal [facility] Osmolality Calc [Osmolality] 287 [facility] Potassium [Moles/Vol] 3.9 mmol/L 3.5 - 5.0 mmol/L [facility] Protein [Mass/Vol] 7.4 g/dL 6.4 - 8.3 g/dL [facility] Sodium [Moles/Vol] 137 mmol/L 135 - 145 mmol/L [facility] Urea nitrogen [Mass/Vol] 9 mg/dL 7 - 25 mg/dL [facility] Urea nitrogen/Creatinine [Mass ratio] 9 mg/mg [facility] Albumin [Mass/Vol] 4.7 g/dL Normal 3.5-5.0 [facility] Comment on above: Performed By: #### C MPN #### [facility] (DEFAULT) [address] [place] [address] ALP [Catalytic activity/Vol] 65 U/L Normal 32-126 [facility] Comment on above: Performed By: #### C MPN #### [facility] (DEFAULT) [address] [place] [address] ALT [Catalytic activity/Vol] 23 U/L Normal 10-52 [facility] Comment on above: Performed By: #### C MPN #### [facility] (DEFAULT) [address] [place] [address] Anion gap [Moles/Vol] 9 mmol/L Normal 7-17 [facility] Comment on above: Performed By: #### C MPN #### [facility] (DEFAULT) [address] [address] AST [Catalytic activity/Vol] 21 U/L Normal 10-39 [facility] Comment on above: Performed By: #### C MPN #### [facility] (DEFAULT) [address] [place] [address] Bilirubin [Mass/Vol] 0.4 mg/dL Normal <1.5 [facility] Comment on above: Performed By: #### C MPN #### [facility] (DEFAULT) [address] [place] [address] Calcium [Mass/Vol] 9.1 mg/dL Normal 8.6-10.5 [facility] Comment on above: Performed By: #### C MPN #### [facility] (DEFAULT) [address] [place] [address] Chloride [Moles/Vol] 104 mmol/L Normal 98-108 [facility] Comment on above: Performed By: #### C MPN #### [facility] (DEFAULT) [address] [address] CO2 [Moles/Vol] 28 mmol/L Normal 21-31 [facility] Comment on above: Performed By: #### C MPN #### [facility] (DEFAULT) [address] [place] [address] Creatinine [Mass/Vol] 0.97 mg/dL Normal 0.70-1.30 [facility] Comment on above: Performed By: #### C MPN #### [facility] (DEFAULT) [address] [place] [address] GFR/1.73 sq M.predicted among non-blacks MDRD (S/P/Bld) [Vol rate/Area] 87 mL/min/{1.73_m2} Normal >=60 [facility] Comment on above: Result Comment: Repo rted eGFR is based on the CKD-EPI 2020 equation using creatinine, age, and sex. Performed By: #### C MPN #### [facility] (DEFAULT) [address] [place] [address] Glucose [Mass/Vol] 117 mg/dL High 70-99 [facility] Comment on above: Performed By: #### C MPN #### [facility] (DEFAULT) [address] [place] [address] Osmolality [Osmolality] 287 mosm/kg Normal 278-305 [facility] Comment on above: Performed By: #### C MPN #### [facility] (DEFAULT) [address] [place] [address] Potassium [Moles/Vol] 3.9 mmol/L Normal 3.5-5.0 [facility] Comment on above: Performed By: #### C MPN #### [facility] (DEFAULT) [address] [place] [address] Protein [Mass/Vol] 7.4 g/dL Normal 6.4-8.3 [facility] Comment on above: Performed By: #### C MPN #### [facility] (DEFAULT) [address] [address] Sodium [Moles/Vol] 137 mmol/L Normal 135-145 [facility] Comment on above: Performed By: #### C MPN #### [facility] (DEFAULT) [address] [place] [address] Urea nitrogen [Mass/Vol] 9 mg/dL Normal 7-25 [facility] Comment on above: Performed By: #### C MPN #### [facility] (DEFAULT) [address] [place] [address] Urea nitrogen/Creatinine [Mass ratio] 9 mg/mg Normal [facility] Comment on above: Performed By: #### C MPN #### [facility] (DEFAULT) [address] [place] [address] [id number] 07-27-2024 [facility] Misc. COMMENT Normal . [facility] Comment on above: Order Comment: LAB T OP ACDA YELLOW TOP WB [id number] Result Comment: Test Ordered: [id number] BCR-ABL1, CML/ALL, PCR, Quant e13a2 (b2a2) transcript <0.0032 % % [facility] Reference Range: . e14a2 (b3a2) transcript <0.0032 % % LUU Reference Range: . e1a2 transcript <0.0032 % % LUU Reference Range: . Interpretation: Negative LUU Reference Range: . NEGATIVE for the BCR-ABL1 e1a2 (p190), e13a2 (b2a2, p210) and e14a2 (b3a2, p210) fusion transcripts. These results do not rule out the presence of rare BCR-ABL1 transcripts not detected by this assay. Director Review Comment [facility]UU Reference Range: . Technical Component performed at [employer] RT Professional Component performed by: [employer] Yaquelin Mckeon, PhD, [facility] Director, Molecular Oncology [address] [place] [address] [place] [address] Background Comment LUU Reference Range: . This assay can detect three different types of BCR-ABL1 fusion transcripts associated with CML, ALL, and AML: e13a2 (previously b2a2) and e14a2 (previously b3a2) (major breakpoint, p210), as well as e1a2 (minor breakpoint, p190). The e13a2 and e14a2 transcript values are titrated to the current International Scale (IS). The standardized baseline is 100% BCR-ABL1 (IS) and major molecular response (MMR) is equivalent to 0.1% BCR-ABL1 (IS) corresponding to a 3-log reduction. Results should be correlated with appropriate clinical and laboratory information as indicated. Methodology Comment Reference Range: . Total RNA is isolated from the sample and subject to a real- time, reverse transcriptase polymerase chain reaction (RT- PCR). The PCR primers and probes are specific for BCR-ABL1 e13a2, e14a2 and e1a2 fusion transcripts. The ABL1 transcript is amplified as the control for cDNA quantity and quality. Serial dilutions of a validated positive control RNA with known t(9;22) BCR-ABL1 are used as reference for quantification of BCR-ABL1 relative to ABL1. The numeric BCR-ABL1 level is reported as % BCR- ABL1/ABL1 and the detection sensitivity is 4.5 log below the standard baseline (<0.0032%). This test was developed and its performance characteristics determined by [employer]. It has not been cleared or approved by the Food and Drug Administration. Performed at: [facility] [address] [place], [place] [id number] [employer] Front Desk Clerk: hilario Benjamin [facility], Phone: [phone] Performed at: - [facility] [address] [place], [place] [id number] [employer] Front Desk Clerk: Sherri Davey [facility], Phone: [phone] Performed at: [facility] [address] [id number] [employer] Front Desk Clerk: Michael Ragsdale PhD, Phone: [phone] Performed By: #### L 500.4050, L100.0100 #### [facility] [address] [place] [address], [id number] CBC W/Diff, Automatedon 12-3 0-2023 Absolute Lymph 1.75 X10 3/uL Normal 0.83-4.51 [facility] Comment on above: Performed By: #### L 100.0100, L500.4050, L3410.9999 #### [facility] [place], [address] Absolute Neut 4.9 X10 3/uL Normal 2.0-7.7 [facility] Comment on above: Performed By: #### L 100.0100, L500.4050, L3410.9999 #### [facility] [address] [place], [address] Basophils/100 WBC (Bld) 0.7 % Normal 0-[address] [facility] Comment on above: Performed By: #### L 100.0100, L500.4050, L3410.9999 #### [facility] [address] [place], [address] Eosinophils/100 WBC (Bld) 5.6 % High 0-5 [facility] Comment on above: Performed By: #### L 100.0100, L500.4050, L3410.9999 #### [facility] [address] [place], [address] Erythrocyte distribution width (RBC) [Ratio] 13.4 % Normal 11.6-14.6 [facility] Comment on above: Performed By: #### L 100.0100, L500.4050, L3410.9999 #### [facility] [address] [place], [address] Hematocrit (Bld) [Volume fraction] 44.7 % Normal 40-54 [facility] Comment on above: Performed By: #### L 100.0100, L500.4050, L3410.9999 #### [facility] [address] [place], [address] Hemoglobin (Bld) [Mass/Vol] 15.2 g/dL Normal 13.0-16.5 [facility] Comment on above: Performed By: #### L 100.0100, L500.4050, L3410.9999 #### [facility] [address] [place], [address] IG% 0.200 Normal 0.0-0.9 [facility] Comment on above: Result Comment: IG% - Immature Granulocytes (promyelocytes, myelocytes and metamyelocytes) > 1% indicates that a LEFT SHIFT is Present. Performed By: #### L 100.0100, L500.4050, L3410.9999 #### [facility] [address] [place], [address] Lymphocytes/100 WBC (Bld) 21.6 % Normal 19-41 [facility] Comment on above: Performed By: #### L 100.0100, L500.4050, L3410.9999 #### [facility] [address] [place], [address] MCH (RBC) [Entitic mass] 29.6 pg Normal 27.0-32.0 [facility] Comment on above: Performed By: #### L 100.0100, L500.4050, L3410.9999 #### [facility] [address] [place], [address] MCHC (RBC) [Mass/Vol] 34.0 g/dL Normal 32-36 [facility] Comment on above: Performed By: #### L 100.0100, L500.4050, L3410.9999 #### [facility] [address] [place], [address] MCV (RBC) [Entitic vol] 87.0 fL Normal 80-[address] [facility] Comment on above: Performed By: #### L 100.0100, L500.4050, L3410.9999 #### [facility] [address] [place], [address] Monocytes/100 WBC (Bld) 11.1 % High 0-[address] [facility] Comment on above: Performed By: #### L 100.0100, L500.4050, L3410.9999 #### [facility] [address] [place], [address] Neutrophils/100 WBC (Bld) 60.8 % Normal 47-70 [facility] Comment on above: Performed By: #### L 100.0100, L500.4050, L3410.9999 #### [facility] [address] [place], [address] Nucleated RBC (Bld) [#/Vol] 0 10*3/uL Normal 0-5 [facility] Comment on above: Performed By: #### L 100.0100, L500.4050, L3410.9999 #### [facility] [address] [place], [address] Platelet mean volume (Bld) [Entitic vol] 10.6 fL Normal 6.2-12.0 [facility] Comment on above: Performed By: #### L 100.0100, L500.4050, L3410.9999 #### [facility] [address] [place], [address] Platelets (Bld) [#/Vol] 233 10*3/uL Normal 150-450 [facility] Comment on above: Performed By: #### L 100.0100, L500.4050, L3410.9999 #### [facility] [address] [place], [address] RBC (Bld) [#/Vol] 5.14 10*6/uL Normal 4.6-6.2 [facility] Comment on above: Performed By: #### L 100.0100, L500.4050, L3410.9999 #### [facility] [address] [place], [address] RDW SD 43.0 fl Normal 35.1-43.9 [facility] Comment on above: Performed By: #### L 100.0100, L500.4050, L3410.9999 #### [facility] [address] [place], [address] WBC (Bld) [#/Vol] 8.1 10*3/uL Normal 4.4-11.0 [facility] Comment on above: Performed By: #### L 100.0100, L500.4050, L3410.9999 #### [facility] [address] [place], [address] Comprehensive Metabolic Prof maon 07-20-2024 Albumin [Mass/Vol] 4.3 g/dL Normal 3.2-5.0 [facility] Comment on above: Performed By: #### L 100.0100, L500.4050, L3410.9999 #### [facility] [address] [place], [address] Albumin/Globulin [Mass ratio] 1.2 {ratio} Normal 0.9-2.4 [facility] Comment on above: Performed By: #### L 100.0100, L500.4050, L3410.9999 #### [facility] [address] [place], [address] ALK P 83 U/L Normal 45-117 [facility] Comment on above: Performed By: #### L 100.0100, L500.4050, L3410.9999 #### [facility] [address] [place], [address] ALT [Catalytic activity/Vol] 42 U/L Normal 16-61 [facility] Comment on above: Performed By: #### L 100.0100, L500.4050, L3410.9999 #### [facility] [address] [place], [address] AST [Catalytic activity/Vol] 24 U/L Normal 15-37 [facility] Comment on above: Performed By: #### L 100.0100, L500.4050, L3410.9999 #### [facility] [address] [place], [address] Bilirubin [Mass/Vol] 0.50 mg/dL Normal 0.20-1.00 [facility] Comment on above: Result Comment: For patients on eltrombopag therapy, use of Dimension Gardiner TBIL is not recommended. Performed By: #### L 100.0100, L500.4050, L3410.9999 #### [facility] [address] [place], [address] BUN/CRE 12.6 RATIO Normal 10-20 [facility] Comment on above: Performed By: #### L 100.0100, L500.4050, L3410.9999 #### [facility] [address] [place], [address] CA,Total 9.2 mg/dL Normal 8.5-10.1 [facility] Comment on above: Performed By: #### L 100.0100, L500.4050, L3410.9999 #### [facility] [address] [place], [address] Chloride [Moles/Vol] 108 mmol/L High 98-107 [facility] Comment on above: Performed By: #### L 100.0100, L500.4050, L3410.9999 #### [facility] [address] [place], [address] CO2 [Moles/Vol] 27.0 mmol/L Normal 21.0-32.0 [facility] Comment on above: Performed By: #### L 100.0100, L500.4050, L3410.9999 #### [facility] [address] [place], [address] Creatinine [Mass/Vol] 0.95 mg/dL Normal 0.70-1.30 [facility] Comment on above: Result Comment: The validity of the calculated GFR GFRAA in patients over 70 years has not been determined. Clinical correlation is essential. Performed By: #### L 100.0100, L500.4050, L3410.9999 #### [facility] [address] [place], [address] ECRCL 100.14 ml/min Normal [facility] Comment on above: Performed By: #### L 100.0100, L500.4050, L3410.9999 #### [facility] [address] [place], [address] EST GFR - AA 103 mL/min Normal >60 [facility] Comment on above: Result Comment: Afri can [place] GFR Calc Performed By: #### L 100.0100, L500.4050, L3410.9999 #### [facility] [address] [place], [address] GAP 5 Normal 5-15 [facility] Comment on above: Performed By: #### L 100.0100, L500.4050, L3410.9999 #### [facility] [address] [place], [address] GFR/1.73 sq M.predicted among non-blacks MDRD (S/P/Bld) [Vol rate/Area] 85 mL/min/{1.73_m2} Normal >60 [facility] Comment on above: Result Comment: Non- GFR Calc Performed By: #### L 100.0100, L500.4050, L3410.9999 #### [facility] [address] [place], [address] Globulin (S) [Mass/Vol] 3.7 g/dL Normal 2.2-4.2 [facility] Comment on above: Performed By: #### L 100.0100, L500.4050, L3410.9999 #### [facility] [address] [place], [address] Glucose [Mass/Vol] 87 mg/dL Normal 74-106 [facility] Comment on above: Performed By: #### L 100.0100, L500.4050, L3410.9999 #### [facility] [address] [place], [address] Potassium [Moles/Vol] 3.9 mmol/L Normal 3.5-5.1 [facility] Comment on above: Performed By: #### L 100.0100, L500.4050, L3410.9999 #### [facility] [address] [place], [address] Sodium [Moles/Vol] 140 mmol/L Normal 136-145 [facility] Comment on above: Performed By: #### L 100.0100, L500.4050, L3410.9999 #### [facility] [address] [place], [address] T PROT 8.0 g/dL Normal 6.4-8.2 [facility] Comment on above: Performed By: #### L 100.0100, L500.4050, L3410.9999 #### [facility] [address] [place], [address] Urea nitrogen [Mass/Vol] 12 mg/dL Normal 7-18 [facility] Comment on above: Performed By: #### L 100.0100, L500.4050, L3410.9999 #### [facility] [address] [place], [address] No Panel InformationOrdered By: Savi Rodriguez on 07-20-2024 Miscellaneous Test COMMENT . [facility] Comment on above: Test Ordered: [id number] BCR-ABL1, CML/ALL, PCR, Bkdugx20t1 (b2a2) transcript <0.0032 % % LUU Reference Range: .e14a2 (b3a2) transcript <0.0032 % % LUU Reference Range: .e1a2 transcript <0.0032 % % LUU Reference Range: .Interpretation: Negative LUU Reference Range: .NEGATIVE for the BCR-ABL1 e1a2 (p190), e13a2 (b2a2, p210)and e14a2 (b3a2, p210) fusion transcripts. These results donot rule out the presence of rare BCR-ABL1 transcripts notdetected by this assay.Director Review Comment Reference Range: .Technical Component performed at [employer] RTPProfessional Component performed by:Listar Kaye Mckeon, PhD, FACMGDirector, Molecular [address] [facility] , [place] [phone] Comment LUU Reference Range: .This assay can detect three different types of BCR-RJM0wmigzq transcripts associated with CML, ALL, and AML: e13a2(previously b2a2) and e14a2 (previously b3a2) (majorbreakpoint, p210), as well as e1a2 (minor breakpoint,p190). The e13a2 and e14a2 transcript values are titratedto the current International Scale (IS). The standardizedbaseline is 100% BCR-ABL1 (IS) and major molecularresponse (MMR) is equivalent to 0.1% BCR-ABL1 (IS)corresponding to a 3-log reduction. Results should becorrelated with appropriate clinical and laboratoryinformation as indicated.Methodology Comment Reference Range: .Total RNA is isolated from the sample and subject to a real-time, reverse transcriptase polymerase chain reaction (RT-PCR). The PCR primers and probes are specific for BCR-[id number], e14a2 and e1a2 fusion transcripts. The KFO3fcvehxvdks is amplified as the control for cDNA quantityand quality. Serial dilutions of a validated positivecontrol RNA with known t(9;22) BCR-ABL1 are used asreference for quantification of BCR-ABL1 relative toABL1. The numeric BCR-ABL1 level is reported as % BCR-ABL1/ABL1 and the detection sensitivity is 4.5 log belowthe standard baseline (<0.0032%).This test was developed and its performance characteristicsdetermined by [employer]. It has not been cleared or approvedby the Food and Drug Administration.Performed at: [facility] [id number] [employer] [facility], [facility], [place] [id number] Director: Sherri Davey [facility], Phone: [phone] at: [facility] [id number] [facility], [place] [id number] Director: Sherri Davey [facility], Phone: [phone] at: [address], [place] [id number] Director: Michael Ragsdale PhD, Phone: [phone] Pulmonary Visit Reporton Pulmonary Visit Report [facility] [place] 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 The patient has been maintained on Trelegy and responding well, this will be continued without interruption. No additional testing at this time. Follow-up in the office in 6 months. Contact the office with any new or worsening symptoms in the meantime. Exertional hypoxia was successfully ruled out at this time. (2) Nicotine dependence, cigarettes, uncomplicated: Status: Chronic Comment: LDCT May 2025, ordered Plan: Continue to encourage complete smoking cessation. He remains appropriate for repeat LDCT in May 2025, ordered accordingly. Orders: Orders Low Dose CT Lung Screening 05/22/25 F17.200 - Nicotine dependence, unspecified, uncomplicated, F17.210 - Nicotine dependence, cigarettes, uncomplicated Plan Details Follow Up: 6 Months (LMR) HPI 6 M F/U Chief Complaint: Test results HPI Comments Details: This patient presents to the office today for follow-up of his mixed obstructive and restrictive ventilatory impairment and to discuss test results. He is ambulatory and currently on room air. He has not recently been seen in the ED or urgent care for any respiratory illness. He has not required any antibiotics or prednisone for any breathing problems. He is compliant with use of Trelegy 1 puff daily. He does report rinsing his mouth out after each use. He denies any medication side effect such as sore throat or thrush. He has not recently needed to use his albuterol rescue inhaler. He denies any difficulty with shortness of breath. He denies any cough, sputum production or hemoptysis. He denies any wheezing, chest tightness, chest pain or palpitations. He also denies any fever, chills or body aches. He continues to smoke cigarettes. He is currently smoking 1/2 pack/day. Test results personally reviewed with the patient: Pulmonary function test completed on May 25, 2024. Impression is grossly normal. Low-dose CT lung screen completed on May 25, 2024. Noted is a mild degree of emphysematous changes. Slight increase in size of the right pleural effusion. Increased markings in the posterior aspect of the right middle lobe with thickening of the right minor fissure suggestive of scarring. Walking oximetry completed on May 28, 2024. The patient was able to ambulate total of 1223 feet over the course of 6 minutes. He did not become hypoxic and does not currently require any supplemental oxygen. 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 Price Accuracy Supervisor Required: No DME Vendor: n/a Accompanied by: Self Is patient in pain?: No Allergies No Known Allergies Allergy (Verified 06/29/24 11:33) Medications ???Medication ???Instructions ???Recorded ???Confirmed ???Type aspirin 81 mg tablet,delayed 81 mg PO DAILY 09/02/18 06/29/24 History release carvedilol 6.25 mg tablet 6.25 mg PO BID 09/02/18 06/29/24 History cholecalciferol (vitamin D3) 25 1,000 unit PO DAILY 09/02/18 06/29/24 History mcg (1,000 unit) capsule ramipril 2.5 mg capsule 2.5 mg PO DAILY 09/02/18 06/29/24 History atorvastatin 80 mg tablet 80 mg PO QHS 12/15/19 06/29/24 History omega 3-dha 60 mg-epa 90 mg-fish 1 cap PO DAILY 05/12/20 06/29/24 History oil 500 mg capsule, delayed release vitamin E 200 unit capsule 200 unit PO DAILY 08/25/20 06/29/24 History ascorbic acid (vitamin C) 500 mg 500 mg PO Q12H 09/06/22 06/29/24 History capsule,extended release albuterol sulfate 90 mcg/actuation 2 puff inhalation Q4H PRN 06/26/23 06/29/24 Rx aerosol inhaler shortness of breath or wheezing #8.5 grams fluticasone fur. 100 mcg-umeclid 1 inh inhalation Q24H #60 ea 06/26/23 06/29/24 Rx 62.5 mcg-vilant 25 mcg inhalat.powder (Trelegy Ellipta) bosutinib 100 mg tablet 400 mg PO DAILY 11/06/23 06/29/24 History ondansetron HCl 8 mg tablet 8 mg PO Q8H PRN PRN Nausea/Emesis 11/20/23 (more content not included)... Normal [facility] 6 Minute Walk Teston 024 6 Minute Walk Test y [facility] Pulmonary Services/Neurology [address] [place] [address] MR#: [id number] Acct: [id number] Name: FREDERIC OVALLES Rep #: [id number] : 1960 63 From: John Brooks DO Referring Dr: Karin De La Rosa NP FERMENTER HELPER-C Status: REG CLI Location: [facility] Date: Sex: M C PSN 6 Minute Walk Test 6 Minute Walk Test 6 Minute Walk Test: 6 Minute Walk Test PSN:6-Minute Walk Test Start: 05/28/24 08:31 Freq: Status: Active Protocol: RESP.6MINW Document 05/28/24 08:32 SFENTON (Rec: 05/28/24 08:34 SFENTON [id number]) 6 Minute Walk Test Date Performed 05/28/24 Time Performed 08:00 Height 6 ft Weight: 238 lb Weight in Pounds 238.[address]: Karin De La Rosa NP Assistive device used: None Pre-test Oxygen Delivery Method Room Air Pulse Ox (%) 96 Pulse Rate (60-100 beats/min) 63 Dyspnea Felicity Scale (0-10) 0 Exertion Felicity Scale (6-20) 6 1st minute Oxygen Delivery Method Room Air Pulse Ox (%) 94 Pulse Rate (60-100 beats/min) 79 2nd minute Oxygen Delivery Method Room Air Pulse Ox (%) 95 Pulse Rate (60-100 beats/min) 82 3rd minute Oxygen Delivery Method Room Air Pulse Ox (%) 94 Pulse Rate (60-100 beats/min) 84 4th minute Oxygen Delivery Method Room Air Pulse Ox (%) 94 Pulse Rate (60-100 beats/min) 87 5th minute Oxygen Delivery Method Room Air Pulse Ox (%) 95 Pulse Rate (60-100 beats/min) 87 6th minute Oxygen Delivery Method Room Air Pulse Ox (%) 95 Pulse Rate (60-100 beats/min) 86 Dyspnea Felicity Scale (0-10) 2 Exertion Felicity Scale (6-20) 11 Post-test Oxygen Delivery Method Room Air Pulse Ox (%) 96 Pulse Rate (60-100 beats/min) 64 Full Laps Walked 20 Partial Lap, Number of Tiles Walked 43 Total Distance Walked (ft) 1223 Interpretation Interpretation: The patient ambulated 1223 feet over the course of 6 minutes beginning on room air without assistive devices. Pretesting oxygen saturation was noted to be 96% on room air. With ambulation, the padmini oxygen saturation was 94%. There was no significant exertional oxygen desaturation. Recommendations Recommendations: There is no indication for the use of supplemental oxygen at this time. 06/01/24 1322 Date John Brooks DO CC: Date Dictated: 06/01/24 1321 Date Transcribed: 06/01/241320 Wool Supplier: Dr. John Brooks DO Signed Normal [facility] Low Dose CT Lung Screeningon 05-25-[address] Lung Screening [facility] [address] [place] [id number] Lung Screening MR#: [id number] Acct: [id number] Name: FREDERIC OVALLES Rep #: [id number] : 1960 M 63 From: Jeovanny medeiros MD PCP: Dr. Jocelin Saunders DO Status: [facility] CLI Study: Low Dose CT Lung Screening Date of Exam: 05/25 Exam# [id number] Ordering [place]: [place] [id number] STUDY: LOW DOSE CT LUNG CANCER SCREENING REASON FOR EXAM: Male, 63 years old. Tobacco Dependency. Patient smoked 1-1 1/2 pack per day for 45 years. History of leukemia. RADIATION DOSAGE (If Supplied By Facility): CTDIvol = ( 3.18 ) mGy, DLP = ( 112.3 ) mGycm TECHNIQUE: No contrast was administered. Low dose technique was utilized (average mAS-38 and kVp 120). 1.25 mm axial source images with a slice interval of 1.25-mm were reconstructed in lung windows. 2.5 mm axial source images with a slice interval of 2.5-mm were reconstructed in lung windows. 5.0 mm axial source images with a slice interval of 5.0-mm were reconstructed in soft tissue windows. COMPARISON: Comparison is made with prior study dated June 05, 2023. NODULES: Emphysema: Mild degree of emphysematous changes. Slight increase in size of the right pleural effusion. Increased markings in the posterior aspect of the right middle lobe with thickening of the right minor fissure suggestive of scarring. Endobronchial lesion: None Aorta: Atherosclerotic plaque formation of the aortic arch. CORONARY ARTERIES: Coronary artery calcification is seen. Heart: Small pericardial effusion. Pulmonary artery: Unremarkable Mediastinal nodes: Unremarkable Other chest and abdominal findings: CT/Low Dose CT Lung Screening IMPRESSION: Lung-RADS category 2 - Continue annual screening with LDCT in 12 months. IMPORTANT NOTES FOR USE: ACR Lung-RADS Version 1.1 Assessment Categories Release Date: 2018 Category: Coded 0-4 bases on nodule(s) with highest degree of suspicion. Negative screen is defined as categories 1 and 2; a positive screen is defined as categories 3 and 4. Category 3 and 4A nodules that are unchanged on interval CT should be coded as category 2, and individuals returned to screening in 12 months. Category 4X: Category 3 or 4 nodules with additional imaging findings that increase the suspicion of lung cancer, such as spiculation, GGN that doubles in size in 1 year, enlarged lymph notes, etc. Category Modifiers: S (significant finding unrelated to lung cancer) Electronically Signed: Jeovanny Swan MD at 14:18 EST , CC: Dr. John Brooks, DO; Dr. Jocelin Saunders, DO Wool Supplier: Signed Normal [facility] Absolute lymphocyte countOrd ered By: [facility] Del[facility] on 10-23-2023 Lymphocytes Auto (Unsp spec) [#/Vol] 1.34 10*3/uL 0.83-4.51 [facility] Automated lymphocyte count a s percentage of total leukocytesOrdered By: Sawyer Delgado on 10-23-2023 Lymphocytes/100 WBC Auto (Unsp spec) 18.7 % 19-41 [facility] Basophil percentageOrdered B y: Sawyer Delgado on 10-23-2023 Basophils/100 WBC (Bld) 1.0 % 0-[address] [facility] Bilirubin [Mass/Vol] 0.40 mg/dL 0.20-1.00 [facility] Comment on above: For patients on eltr ombopag therapy, use of Dimension [place] TBIL is not recommended. Chloride [Moles/Vol] 105 mmol/L 98-107 [facility] Eosinophils/100 WBC (Bld) 5.7 % 0-5 [facility] Glucose [Mass/Vol] 151 mg/dL 74-106 [facility] Comment on above: Fasting Glucose resu lt greater than or equal to 126 mg/dL suggests DIABETES MELLITUS per A.D.A. criteria. Hemoglobin (Bld) [Mass/Vol] 15.1 g/dL 13.0-16.5 [facility] Monocytes/100 WBC (Bld) 9.6 % 0-[address] [facility] Neutrophils (Bld) [#/Vol] 4.6 10*3/uL 2.0-7.7 [facility] Neutrophils/100 WBC (Bld) 64.7 % 47-70 [facility] Potassium [Moles/Vol] 3.9 mmol/L 3.5-5.1 [facility] Protein [Mass/Vol] 7.7 g/dL 6.4-8.2 [facility] Sodium [Moles/Vol] 137 mmol/L 136-145 [facility] WBC (Bld) [#/Vol] 7.2 10*3/uL 4.4-11.0 [facility] Determination of erythrocyte mean corpuscular volume (MCV)Ordered By: Sawyer Delgado on 10-23-2023 MCV (RBC) [Entitic vol] 87.4 fL 80-[address] [facility] Erythrocyte distribution wid th ratioOrdered By: [facility] Danny on 10-23-2023 Erythrocyte distribution width (RBC) [Ratio] 13.4 % 11.6-14.6 [facility] Erythrocyte distribution wid th standard deviationOrdered By: [facility] Danny on 10-23-2023 Erythrocyte distribution width (RBC) [Entitic vol] 43.3 fL 35.1-43.9 [facility] Hematocrit Auto (Bld) [Volum e fraction]Ordered By: [facility] Danny on 10-23-2023 Hematocrit (Bld) [Volume fraction] 45.1 % 40-54 [facility] Immature granulocytes/100 WB C Auto (Bld)Ordered By: [facility] Danny on 10-23-2023 Immature granulocytes/100 WBC (Bld) 0.300 % 0.0-0.9 [facility] Comment on above: IG% - Immature Granu locytes (promyelocytes, myelocytes and metamyelocytes) > 1% indicates that a LEFT SHIFT is Present. Laboratory - Chemistry and C hemistry - challengeOrdered By: Sawyer Delgado on 10-23-2023 Albumin/Globulin [Mass ratio] 1.0 {ratio} 0.9-2.4 [facility] ALP [Catalytic activity/Vol] 67 U/L 45-117 [facility] ALT [Catalytic activity/Vol] 45 U/L 16-61 [facility] CO2 [Moles/Vol] 28.0 mmol/L 21.0-32.0 [facility] Globulin (S) [Mass/Vol] 3.8 g/dL 2.2-4.2 [facility] Urea nitrogen/Creatinine [Mass ratio] 14.0 mg/mg 10-20 [facility] Laboratory - Hematology and Cell countsOrdered By: Sawyer Delgado on 10-23-2023 MCH (RBC) [Entitic mass] 29.3 pg 27.0-32.0 [facility] MCHC (RBC) [Mass/Vol] 33.5 g/dL 32-36 [facility] Nucleated RBC/100 WBC (Bld) [Ratio] 0 % 0-5 [facility] Platelet mean volume (Bld) [Entitic vol] 10.1 fL 6.2-12.0 [facility] Platelets (Bld) [#/Vol] 244 10*3/uL 150-450 [facility] No Panel InformationOrdered By: Sawyer Delgado on 10-23-2023 Estimated Creatinine Clearance Calc 104.24 ml/min [facility] Estimated GFR (MDRD) Amer 105 mL/min >60 [facility] Comment on above: GFR Calc Estimated GFR (MDRD) Non-Af Amer 87 mL/min >60 [facility] Comment on above: Non- GFR Calc RBC Auto (Bld) [#/Vol]Ordere d By: Sawyer Delgado on 10-23-2023 RBC (Bld) [#/Vol] 5.16 10*6/uL 4.6-6.2 [facility] Serum or plasma calcium mary urement (mass/volume)Ordered By: Sawyer Delgado on 10-23-2023 Calcium [Mass/Vol] 8.9 mg/dL 8.5-10.1 [facility] Serum or plasma creatinine m easurement (mass/volume)Ordered By: Sawyer Delgado on 10-23-2023 Creatinine [Mass/Vol] 0.93 mg/dL 0.70-1.30 [facility] Comment on above: The validity of the calculated GFR & GFRAA in patients over 70 years has not been determined. Clinical correlation is essential. Serum or plasma urea nitroge n measurement (mass/volume)Ordered By: Sawyer Delgado on 10-23-2023 Urea nitrogen [Mass/Vol] 13 mg/dL 7-18 [facility] Thin prep Papanicolaou smear with manual screeningOrdered By: Sawyer Delgado on 10-23-2023 Thin prep Papanicolaou smear with manual screening 3.9 g/dL 3.2-5.0 [facility] Thin prep Papanicolaou smear with manual screening 29 U/L 15-37 [facility] Thin prep Papanicolaou smear with manual screening 4 5-15 [facility] RNA EXTRACTIONOrdered By: Sa patrizia Abbott on 07-31-2023 [facility] BCR/ABL BLOOD OR BONE MARROW ,T(9;22),QUANTOrdered By: Moses Cheney on 07-30-2023 Receiving Status Accessioned in Lab [facility] CBC AND ELECTRONIC DIFFon Basophils (Bld) [#/Vol] 0.06 10*3/uL 0.00 - 0.09 K/uL [facility] Basophils/100 WBC (Bld) 0.8 % [facility] Differential cell count method Nom (Bld) Electronic Differential [facility] Eosinophils (Bld) [#/Vol] 0.37 10*3/uL 0.00 - 0.48 K/uL [facility] Eosinophils/100 WBC (Bld) 4.7 % [facility] Erythrocyte distribution width (RBC) [Ratio] 13.5 % 10.9 - 14.3 % [facility] Hematocrit (Bld) [Volume fraction] 45.1 % 39.6 - 48.8 % [facility] Hemoglobin (Bld) [Mass/Vol] 15.5 g/dL 13.4 - 16.8 g/dL [facility] Immature granulocytes (Bld) [#/Vol] K/uL NINF - 0.07 K/uL [facility] Immature granulocytes/100 WBC (Bld) 0.1 % [facility] Lymphocytes (Bld) [#/Vol] 1.62 10*3/uL 0.83 - 3.57 K/uL [facility] Lymphocytes/100 WBC (Bld) 20.6 % [facility] MCH (RBC) [Entitic mass] 30.1 pg 26.1 - 33.3 pg [facility] MCHC (RBC) [Mass/Vol] 34.4 g/dL 31.9 - 36.5 g/dL [facility] MCV (RBC) [Entitic vol] 87.6 fL 79.0 - 94.5 fL [facility] Monocytes (Bld) [#/Vol] 0.73 10*3/uL 0.24 - 0.93 K/uL [facility] Monocytes/100 WBC (Bld) 9.3 % [facility] Neutrophils (Bld) [#/Vol] 5.07 10*3/uL 1.57 - 6.19 K/uL [facility] Nucleated RBC/100 WBC (Bld) [Ratio] 0.0 % [facility] Platelet mean volume (Bld) [Entitic vol] 10.1 fL 8.7 - 12.3 fL [facility] Platelets (Bld) [#/Vol] 257 10*3/uL 146 - 337 K/uL [facility] RBC (Bld) [#/Vol] 5.15 10*6/uL [facility] Segmented neutrophils/100 WBC (Bld) 64.5 % [facility] WBC (Bld) [#/Vol] 7.86 10*3/uL 3.73 - 10.10 K/uL [facility] COMPREHENSIVE METABOLIC PANE Cezar 07-30-2023 Albumin [Mass/Vol] 4.6 g/dL 3.5 - 5.0 g/dL [facility] ALP [Catalytic activity/Vol] 70 U/L 32 - 126 U/L [facility] ALT [Catalytic activity/Vol] 26 U/L 10 - 52 U/L [facility] Anion gap [Moles/Vol] 10 mmol/L 7 - 17 mmol/L [facility] AST [Catalytic activity/Vol] 24 U/L 10 - 39 U/L [facility] Bilirubin [Mass/Vol] 0.3 mg/dL [facility] - 1.5 mg/dL [facility] Calcium [Mass/Vol] 9.4 mg/dL 8.6 - 10. 5 mg/dL [facility] Chloride [Moles/Vol] 104 mmol/L 98 - 10 8 mmol/L [facility] CO2 [Moles/Vol] 26 mmol/L 21 - 31 mmol/L [facility] Creatinine [Mass/Vol] 0.96 mg/dL 0.70 - 1.30 mg/dL [facility] eGFR, CKD-EPI, Male 89 - PINF [facility] Comment on above: Reported eGFR is bas ed on the CKD-EPI 2020 equation using creatinine, age, and sex. Glucose [Mass/Vol] 129 mg/dL High 70 - 99 mg/dL [facility] Interpretation and review of laboratory results Abnormal [facility] Osmolality Calc [Osmolality] 287 [facility] Potassium [Moles/Vol] 4.0 mmol/L 3.5 - 5.0 mmol/L [facility] Protein [Mass/Vol] 7.6 g/dL 6.4 - 8.3 g/dL [facility] Sodium [Moles/Vol] 136 mmol/L 135 - 145 mmol/L [facility] Urea nitrogen [Mass/Vol] 11 mg/dL 7 - 25 mg/dL [facility] Urea nitrogen/Creatinine [Mass ratio] 11 mg/mg [facility] XR Spine lumbosacral junctio n Viewson 07-30-2023 IMPRESSION: Multilevel degenerative disc disease and facet arthrosis. No compression deformity or malalignment. OLOGY EXAM: XR SPINE LUMBA R 2-3 VIEWS, 07/30/2023 15:42 PM COMPARISON: No priors available for comparison. CLINICAL INDICATIONS: lower back pain RELEVANT CLINICAL HISTORY: M54.42:Acute midline low back pain with bilateral sciatica M54.41:Acute midline low back pain with bilateral sciatica FINDINGS: 3 images obtained. Vertebral: There are 5 typical lumbar spine vertebral bodies in anatomic alignment. No compression deformity. No spondylolysis. Disc: Diffuse degenerative disc disease most severe L2-3 and L4-5. Degenerative disc disease to a lesser degree L1-2 and L5-S1. Joint: Facet arthrosis mid and lower lumbar spine. RADIOLOGY Nikko Vargas MD - 07/30/2023 EXAM: XR SPINE LUMBAR 2-3 VIEWS, 07/30/2023 15:42 PM COMPARISON: No priors available for comparison. CLINICAL INDICATIONS: lower back pain RELEVANT CLINICAL HISTORY: M54.42:Acute midline low back pain with bilateral sciatica M54.41:Acute midline low back pain with bilateral sciatica FINDINGS: 3 images obtained. Vertebral: There are 5 typical lumbar spine vertebral bodies in anatomic alignment. No compression deformity. No spondylolysis. Disc: Diffuse degenerative disc disease most severe L2-3 and L4-5. Degenerative disc disease to a lesser degree L1-2 and L5-S1. Joint: Facet arthrosis mid and lower lumbar spine. IMPRESSION IMPRESSION: Multilevel degenerative disc disease and facet arthrosis. No compression deformity or malalignment. [facility] Radiology Study observation (narrative) [facility] XR Spine lumbosacral junctio n ViewsOrdered By: Nikko Vargas on 07-30-2023 [facility] Work Phone: No Panel InformationOrdered By: Sawyer Delgado on 07-26-2023 Miscellaneous Test See comment [facility] Comment on above: TEST RESULT LIMITSBC R-ABL1, CML/ALL, PCR, Quant e13a2 (b2a2) transcript % <0.0032 % e14a2 (b3a2) transcript % <0.0032 % e1a2 transcript % <0.0032 %Interpretation: Negative NEGATIVE for the BCR-ABL1 e1a2 (p190), e13a2 (b2a2, p210) and e14a2 (b3a2, p210) fusion transcripts. These results do not rule out the presence of rare BCR-ABL1 transcripts not detected by this assay.Director ReviewTechnical Component performed at [facility] RTPProfessional Component performed by:Christopher Mckeon, PhD, FACDirector, Molecular [id number], [place] [phone] assay can detect three different types of BCR-ABL1 fusiontranscripts associated with CML, ALL, and AML: e13a2 (previously b2a2) and e14a2 (previously b3a2) (major breakpoint, p210), as well as e1a2 (minor breakpoint, p190). The e13a2 and e14a2 transcript values are titrated to the current International Scale (IS). The standardized baseline is 100% BCR-ABL1 (IS) and major molecular response (MMR) is equivalent to 0.1% BCR-ABL1 (IS) corresponding to a 3-log reduction. Results should be correlated with appropriate clinical and laboratory information as indicated.Methodology Total RNA is isolated from the sample and subject to a real-time, reverse transcriptase polymerase chain reaction (RT-PCR). The PCR primers and probes are specific for BCR-ABL1 e13a2, e14a2 and e1a2 fusion transcripts. The ABL1 transcript is amplified as the control for cDNA quantity and quality. Serial dilutions of a validated positive control RNA with known t(9;22) BCR-ABL1 are used as reference for quantification of BCR-ABL1 relative to ABL1. The numeric BCR-ABL1 level is reported as % BCR-ABL1/ABL1 and the detection sensitivity is 4.5 log below the standard baseline (<0.0032%).This test was developed and its performance characteristics determined by [employer]. It has not been cleared or approved by the Food and Drug Administration. TESTING PERFORMED AT [facility]. ORIGINAL REPORT ON FILE IN LAB CONTAINS ADDITIONAL TEST SITE INFORMATION. Absolute lymphocyte countOrd ered By: Sawyer Delgado on 04-22-2023 Lymphocytes Auto (Unsp spec) [#/Vol] 1.72 10*3/uL 0.83-4.51 [facility] Basophil percentageOrdered B y: Sawyer Delgado on 04-22-2023 Basophil percentage 2.2 mg/dL 2.5-4.9 [facility] Basophils/100 WBC (Bld) 1.0 % 0-1 [facility] Bilirubin [Mass/Vol] 0.40 mg/dL 0.20-1.00 [facility] Comment on above: For patients on eltr ombopag therapy, use of Dimension [place]iner TBIL is not recommended. Chloride [Moles/Vol] 106 mmol/L 98-107 [facility] Eosinophils/100 WBC (Bld) 5.3 % 0-5 [facility] Glucose [Mass/Vol] 141 mg/dL 74-106 [facility] Comment on above: Fasting Glucose resu lt greater than or equal to 126 mg/dL suggests DIABETES MELLITUS per A.D.A. criteria. Neutrophils (Bld) [#/Vol] 5.6 10*3/uL 2.0-7.7 [facility] Neutrophils/100 WBC (Bld) 63.1 % 47-70 [facility] Potassium [Moles/Vol] 4.1 mmol/L 3.5-5.1 [facility] Protein [Mass/Vol] 7.7 g/dL 6.4-8.2 [facility] Sodium [Moles/Vol] 138 mmol/L 136-145 [facility] WBC (Bld) [#/Vol] 8.9 10*3/uL 4.4-11.0 [facility] Blood erythrocytes count (nu mber/volume)Ordered By: Sawyer Delgado on 04-22-2023 RBC (Bld) [#/Vol] 5.21 10*6/uL 4.6-6.2 [facility] Blood hemoglobin measurement (mass/volume)Ordered By: Sawyer Delgado on 04-22-2023 Hemoglobin (Bld) [Mass/Vol] 15.6 g/dL 13.0-16.5 [facility] Blood lymphocytes/100 leukoc ytesOrdered By: Sawyer Delgado on 04-22-2023 Lymphocytes/100 WBC (Bld) 19.3 % 19-41 [facility] Blood monocytes/100 leukocyt esOrdered By: Sawyer Delgado on 04-22-2023 Monocytes/100 WBC (Bld) 11.0 % 0-[address] [facility] Blood platelet mean volumeOr dered By: Sawyer Delgado on 04-22-2023 Platelet mean volume (Bld) [Entitic vol] 10.6 fL 6.2-12.0 [facility] Determination of erythrocyte mean corpuscular volume (MCV)Ordered By: Sawyer Delgado on 04-22-2023 MCV (RBC) [Entitic vol] 88.7 fL 80-[address] [facility] Hematocrit Auto (Bld) [Volum e fraction]Ordered By: Sawyer Delgado on 04-22-2023 Hematocrit (Bld) [Volume fraction] 46.2 % 40-54 [facility] Laboratory - Chemistry and C hemistry - challengeOrdered By: [facility] Danny on 04-22-2023 ALP [Catalytic activity/Vol] 78 U/L 45-117 [facility] ALT [Catalytic activity/Vol] 37 U/L 16-61 [facility] CO2 [Moles/Vol] 27.0 mmol/L 21.0-32.0 [facility] Globulin (S) [Mass/Vol] 3.7 g/dL 2.2-4.2 [facility] Magnesium [Mass/Vol] 2.2 mg/dL 1.6-2.6 [facility] Urea nitrogen/Creatinine [Mass ratio] 10.0 mg/mg 10-20 [facility] Laboratory - Hematology and Cell countsOrdered By: Sawyer Delgado on 04-22-2023 Erythrocyte distribution width (RBC) [Entitic vol] 44.2 fL 35.1-43.9 [facility] Erythrocyte distribution width (RBC) [Ratio] 13.6 % 11.6-14.6 [facility] Immature granulocytes/100 WBC (Bld) 0.300 % 0.0-0.9 [facility] Comment on above: IG% - Immature Granu locytes (promyelocytes, myelocytes and metamyelocytes) > 1% indicates that a LEFT SHIFT is Present. MCH (RBC) [Entitic mass] 29.9 pg 27.0-32.0 [facility] Nucleated RBC/100 WBC (Bld) [Ratio] 0 % 0-5 [facility] MCHC Auto (RBC) [Mass/Vol]Or dered By: Sawyer Delgado on 04-22-2023 MCHC (RBC) [Mass/Vol] 33.8 g/dL 32-36 [facility] No Panel InformationOrdered By: Sawyer Delgado on 04-22-2023 Estimated Creatinine Clearance Calc 76.42 ml/min [facility] Estimated GFR (MDRD) Amer 87 mL/min >60 [facility] Comment on above: GFR Calc Estimated GFR (MDRD) Non-Af Amer 72 mL/min >60 [facility] Comment on above: Non- GFR Calc Miscellaneous Test See comment [facility] Comment on above: TEST RESULT LIMITSBC R-ABL1, CML/ALL, PCR, Quant e13a2 (b2a2) transcript 0.0313 % e14a2 (b3a2) transcript % <0.0032 % e1a2 transcript % <0.0032 %Interpretation: Positive Abnormal POSITIVE for the BCR-ABL1 e13a2 (b2a2, p210) fusion transcript.Director ReviewTechnical Component performed at [facility] RTPProfessional Component performed by:Christopher Mckeon, PhD, FACMGDirector, Molecular [id number] [place] [address] [place], [place] [phone] assay can detect three different types of BCR-ABL1 fusiontranscripts associated with CML, ALL, and AML: e13a2 ([id number]) and e14a2 (previously b3a2) (major breakpoint, p210), aswell as e1a2 (minor breakpoint, p190). The e13a2 and e14a2 transcript values are titrated to the current International Scale (IS). The standardized baseline is 100% BCR-ABL1 (IS) and major molecular response (MMR) is equivalent to 0.1% BCR-ABL1 (IS) corresponding to a 3-log reduction. Results should be correlated with appropriate clinical and laboratory information as indicated.Methodology Total RNA is isolated from the sample and subject to a real-time, reverse transcriptase polymerase chain reaction (RT-PCR). The PCR primers and probes are specific for BCR-ABL1 e13a2, e14a2 and e1a2 fusion transcripts. The ABL1 transcript is amplified as the control for cDNA quantity and quality. Serial dilutions of a validated positive control RNA with known t(9;22) BCR-ABL1 are used as reference for quantification of BCR-ABL1 relative to ABL1. The numeric BCR-ABL1 level is reported as % BCR-ABL1/ABL1 and the detection sensitivity is 4.5 log below the standard baseline (<0.0032%).This test was developed and its performance characteristics determined by [facility]. It has not been cleared or approved by the Food and Drug Administration. TESTING PERFORMED AT [facility]. ORIGINAL REPORT ON FILE IN LAB CONTAINS ADDITIONAL TEST SITE INFORMATION. Platelets bldOrdered By: Glen Delgado on 04-22-2023 Platelets (Bld) [#/Vol] 247 10*3/uL 150-450 [facility] Serum or plasma albumin mary urement (mass/volume)Ordered By: Sawyer Delgado on 04-22-2023 Albumin [Mass/Vol] 4.0 g/dL 3.2-5.0 [facility] Serum or plasma albumin/glob ulin mass ratioOrdered By: Sawyer Delgado on 04-22-2023 Albumin/Globulin [Mass ratio] 1.1 {ratio} 0.9-2.4 [facility] Serum or plasma calcium mary urement (mass/volume)Ordered By: Sawyer Delgado on 04-22-2023 Calcium [Mass/Vol] 8.7 mg/dL 8.5-10.1 [facility] Serum or plasma creatinine m easurement (mass/volume)Ordered By: Sawyer Delgado on 04-22-2023 Creatinine [Mass/Vol] 1.10 mg/dL 0.70-1.30 [facility] Comment on above: The validity of the calculated GFR & GFRAA in patients over 70 years has not been determined. Clinical correlation is essential. Serum or plasma urea nitroge n measurement (mass/volume)Ordered By: Sawyer Delgado on 04-22-2023 Urea nitrogen [Mass/Vol] 11 mg/dL 7-18 [facility] Thin prep Papanicolaou smear with manual screeningOrdered By: Sawyer Delgado on 04-22-2023 Thin prep Papanicolaou smear with manual screening 23 U/L 15-37 [facility] Thin prep Papanicolaou smear with manual screening 5 5-15 [facility] Blood Glucose , Office [phone])Ordered By: Terese Sweet on 04-03-2023 Glucose Glucometer (BldC) [Moles/Vol] 101 1 Normal [facility]; [facility] Work Phone: HgA1C , Office ([phone])Ordere d By: Terese Sweet on 04-03-2023 HbA1c (Bld) [Mass fraction] 6.4 % Normal 4.6 - 7.1 [facility]; [facility] Work Phone: CBC W/AUTO DIFF WBC ([phone])O rdered By: Calliope Player on 03-28-2023 Basophils (Bld) [#/Vol] 0.1 10*3/uL Normal 0.0-0.2 [facility]; [facility] Work Phone: Basophils/100 WBC (Bld) 1 % Normal [facility]; [facility] Work Phone: Eosinophils (Bld) [#/Vol] 0.3 10*3/uL Normal 0.0-0.4 [facility]; [facility] Work Phone: Eosinophils/100 WBC (Bld) 4 % Normal [facility]; [facility] Work Phone: Erythrocyte distribution width (RBC) [Ratio] 13.3 % Normal 11.6-15.4 [facility]; [facility] Work Phone: Hematocrit (Bld) [Volume fraction] 48.1 % Normal 37.5-51.0 [facility]; [facility] Work Phone: Hemoglobin (Bld) [Mass/Vol] 16.3 g/dL Normal 13.0-17.7 [facility]; [facility] Work Phone: Immature granulocytes (Bld) [#/Vol] 0.0 10*3/uL Normal 0.0-0.1 [facility]; [facility] Work Phone: Immature granulocytes/100 WBC (Bld) 0 % Normal [facility]; [facility] Work Phone: Lymphocytes (Bld) [#/Vol] 1.4 10*3/uL Normal 0.7-3.1 [facility]; [facility] Work Phone: Lymphocytes/100 WBC (Bld) 18 % Normal [facility]; [facility] Work Phone: MCH (RBC) [Entitic mass] 30.5 pg Normal 26.6-33.0 [facility]; [facility] Work Phone: MCHC (RBC) [Mass/Vol] 33.9 g/dL Normal 31.5-35.7 [facility] Work Phone: MCV (RBC) [Entitic vol] 90 fL Normal 79-97 [facility] Work Phone: Monocytes (Bld) [#/Vol] 0.8 10*3/uL Normal 0.1-0.9 [facility]; [facility] Work Phone: Monocytes/100 WBC (Bld) 10 % Normal [facility]; [facility] Work Phone: Neutrophils (Bld) [#/Vol] 5.1 10*3/uL Normal 1.4-7.0 [facility]; [facility] Work Phone: Neutrophils/100 WBC (Bld) 67 % Normal [facility]; [facility] Work Phone: Platelets (Bld) [#/Vol] 239 10*3/uL Normal 150-450 [facility]; [facility] Work Phone: RBC (Bld) [#/Vol] 5.35 10*6/uL Normal 4.14-5.80 [facility] ehensive [facility]; [facility] Work Phone: WBC (Bld) [#/Vol] 7.7 10*3/uL Normal 3.4-10.8 [facility]; [facility] Work Phone: LIPID PANEL ([phone])Ordered B y: Calliope Player on 03-28-2023 Cholesterol [Mass/Vol] 174 mg/dL Normal 100-199 [facility]; [facility] Work Phone: Cholesterol in HDL [Mass/Vol] 52 mg/dL Normal [facility]; [facility] Work Phone: Triglyceride [Mass/Vol] 175 mg/dL Abnormal 0-149 [facility]; [facility] Work Phone: LIPID PANEL ([id number]) 30 mg/dL Normal 5-40 [facility]; [facility] Work Phone: LIPID PANEL ([id number]) 92 mg/dL Normal 0-99 [facility]; [facility] Work Phone: LIPID PANEL ([phone]) 1.8 {ratio} Normal 0.0-3.6 [facility] Work Phone: METABOLIC PANEL, COMPREHENSI VE ([phone])Ordered By: Calliope Player on 03-28-2023 Albumin [Mass/Vol] 4.7 g/dL Normal 3.9-4.9 [facility]; [facility] Work Phone: Albumin/Globulin [Mass ratio] 1.8 {ratio} Normal 1.2-2.2 [facility]; [facility] Work Phone: ALP [Catalytic activity/Vol] 76 U/L Normal 44-121 [facility]; [facility] Work Phone: ALT [Catalytic activity/Vol] 39 U/L Normal 0-44 [facility]; [facility] Work Phone: AST [Catalytic activity/Vol] 30 U/L Normal 0-40 [facility]; [facility] Work Phone: Bilirubin [Mass/Vol] 0.4 mg/dL Normal 0.0-1.2 [facility]; [facility] Work Phone: Calcium [Mass/Vol] 9.5 mg/dL Normal 8.6-10.2 [facility]; [facility] Work Phone: Chloride [Moles/Vol] 103 mmol/L Normal 96-106 [facility] rehensive [facility]; [facility] Work Phone: CO2 [Moles/Vol] 23 mmol/L Normal 20-29 [facility]; [facility] Work Phone: Creatinine [Mass/Vol] 0.98 mg/dL Normal 0.76-1.27 [facility] prehensive Internal Medicine; [facility] Work Phone: Globulin (S) [Mass/Vol] 2.6 g/dL Normal 1.5-4.5 [facility]; [facility] Work Phone: Glucose [Mass/Vol] 106 mg/dL Abnormal 70-99 [facility] Internal [facility]; [facility] Work Phone: Potassium [Moles/Vol] 4.5 mmol/L Normal 3.5-5.2 [facility]; [facility] Work Phone: Protein [Mass/Vol] 7.3 g/dL Normal 6.0-8.5 [facility]; [facility] Work Phone: Sodium [Moles/Vol] 141 mmol/L Normal 134-144 [facility] Internal [facility]; [facility] Work Phone: Urea nitrogen [Mass/Vol] 11 mg/dL Normal 8-27 [facility]; [facility] Work Phone: Urea nitrogen/Creatinine [Mass ratio] 11 mg/mg Normal 10-24 [facility]; [facility] Work Phone: METABOLIC PANEL, COMPREHENSIVE ([id number]) 87 mL/min/1.73 Normal [facility] Internal [facility]; [facility] Work Phone: MICROALBUMINOrdered By: Syst em Horse Rancher on 03-28-2023 Albumin DL <= 20 mg/L (U) [Mass/Vol] 9.9 ug/mL Normal [facility]; [facility] Work Phone: Albumin/Creatinine (U) [Mass ratio] 11 {mg/g_creat} Normal 0-29 [facility]; [facility] Work Phone: Creatinine (U) [Mass/Vol] 91.0 mg/dL Normal [facility]; [facility] Work Phone: PSA (PROSTATE SPECIFIC ANTIG EN) (V76.44)Ordered By: Calliope Player on 03-28-2023 Prostate specific Ag [Mass/Vol] 0.4 ng/mL Normal 0.0-4.0 [facility]; [facility] Work Phone: TSH ([phone])Ordered By: Market6 m Horse Rancher on 03-28-2023 TSH Qn 2.700 {uIU/mL} Normal 0.450-4.50 0 [facility]; [facility] Work Phone: URINALYSIS, W/ MICRO ([phone]) Ordered By: Calliope Player on 03-28-2023 Appearance (U) Clear Normal [facility]; [facility] Work Phone: Bilirubin Ql (U) Negative Normal Compre[facility]; [facility] Work Phone: Color (U) Yellow Normal [facility]; [facility] Work Phone: Glucose Ql (U) Negative Normal [facility]; [facility] Work Phone: Hemoglobin Ql (U) Negative Normal Compre[facility]; [facility] Work Phone: Ketones Ql (U) Negative Normal [facility]; [facility] Work Phone: Leukocyte esterase Test strip Ql (U) Negative Normal [facility]; [facility] Work Phone: Microscopic observation LM Nom (Urine sed) MICRON Normal [facility]; [facility] Work Phone: Microscopic observation LM Nom (Urine sed) See below: Normal [facility]; [facility] Work Phone: Nitrite Ql (U) Negative Normal [facility]; [facility] Work Phone: pH (U) 7.5 [pH] Normal 5.0-7.5 [facility]; [facility] Work Phone: Protein Ql (U) Negative Normal [facility]; [facility] Work Phone: Specific gravity (U) [Rel density] 1.017 1 Normal 1.005-1.03 0 [facility]; [facility] Work Phone: Urobilinogen (U) [Mass/Vol] 0.2 mg/dL Normal 0.2-1.0 [facility]; [facility] Work Phone: Blood Glucose , Office [phone] By: Víctor Barton on 12-31-2022 Glucose Glucometer (BldC) [Moles/Vol] 116 1 Normal [facility]; [facility] Work Phone: HgA1C , Office ([phone])Ordere d By: Víctor Barton on 12-31-2022 HbA1c (Bld) [Mass fraction] 6.2 % Normal 4.6 - 7.1 [facility]; [facility] Work Phone: Basophil percentageOrdered B y: Savi Rodriguez on 11-15-2022 Basophil percentage 0-5 SEEN /hpf 0-5 [facility] Bilirubin Test strip Ql (U)O rdered By: Savi UngerMichael on 11-15-2022 Bilirubin Ql (U) Negative Negative [facility] Culture, urineOrdered By: Derik Rodriguez on 11-15-2022 Bacteria identified Cx Nom (U) Culture exhibits no growth. [facility] Bacteria identified Cx Nom (U) Culture exhibits no growth. [facility] Ketones Test strip Ql (U)Ord ered By: Savi UngerMichael on 11-15-2022 Ketones Ql (U) Negative Negative [facility] Mucus LM Ql (Urine sed)Order ed By: Savi UngerMichael on 11-15-2022 Mucus Ql (Urine sed) 0 SEEN /hpf [facility] Nitrite Test strip Ql (U)Ord ered By: Savi Rodriguez on 11-15-2022 Nitrite Ql (U) Negative Negative [facility] Protein Test strip Ql (U)Ord ered By: Savi Rodriguez on 11-15-2022 Protein Ql (U) Negative Negative [facility] Squamous epithelial cells de tection in urine sediment by light microscopyOrdered By: Savi Rodriguez on 11-15-2022 Epithelial cells.squamous LM Ql (Urine sed) 0 SEEN /hpf 0-5 [facility] Urine blood detectionOrdered By: Savi Rodriguez on 11-15-2022 RBC Ql (U) Negative Negative [facility] RBC Ql (U) 0 SEEN /hpf 0-5 [facility] Urine clarityOrdered By: Priscilla Rodriguez on 11-15-2022 Clarity (U) Clear Clear [facility] Urine color determinationOrd ered By: Savi Rodriguez on 11-15-2022 Color (U) Yellow Yellow [facility] Urine glucose detectionOrder ed By: Savi Rodriguez on 11-15-2022 Glucose Ql (U) Normal mg/dl Normal [facility] Urine leukocyte esterase det ection by dipstickOrdered By: Savi Rodriguez on 11-15-2022 Leukocyte esterase Test strip Ql (U) 25 /ul High Negative [facility] Urine pHOrdered By: Savi carvajal on 11-15-2022 pH (U) 7.0 [pH] 5.0 - 8.0 [facility] Urine sediment bacteria coun t by microscopy (number/high power field)Ordered By: Savi Rodriguez on 11-15-2022 Bacteria LM.HPF (Urine sed) [#/Area] 0 /[HPF] None Seen [facility] Urine specific gravity measu rementOrdered By: Savi Rodriguez on 11-15-2022 Specific gravity (U) [Rel density] 1.010 1.002-1.03 0 [facility] Urobilinogen Auto test strip Ql (U)Ordered By: Savi Rodriguez on 11-15-2022 Urobilinogen Ql (U) Normal mg/dl Normal [facility] Absolute lymphocyte countOrd ered By: Dr. Delgado on 10-18-2022 Lymphocytes Auto (Unsp spec) [#/Vol] 1.17 10*3/uL 0.83-4.51 [facility] Basophil percentageOrdered B y: Dr. Delgado on 10-18-2022 Basophils/100 WBC (Bld) 0.8 % 0-[address] [facility] Bilirubin [Mass/Vol] 0.30 mg/dL 0.20-1.00 [facility] Comment on above: For patients on eltr ombopag therapy, use of Dimension [place] TBIL is not recommended. Chloride [Moles/Vol] 103 mmol/L 98-107 [facility] Eosinophils/100 WBC (Bld) 4.4 % 0-5 [facility] Glucose [Mass/Vol] 173 mg/dL 74-106 [facility] Comment on above: Fasting Glucose resu lt greater than or equal to 126 mg/dL suggests DIABETES MELLITUS per A.D.A. criteria. Neutrophils (Bld) [#/Vol] 5.5 10*3/uL 2.0-7.7 [facility] Neutrophils/100 WBC (Bld) 70.5 % 47-70 [facility] Potassium [Moles/Vol] 4.5 mmol/L 3.5-5.1 [facility] Protein [Mass/Vol] 7.9 g/dL 6.4-8.2 [facility] Sodium [Moles/Vol] 137 mmol/L 136-145 [facility] WBC (Bld) [#/Vol] 7.7 10*3/uL 4.4-11.0 [facility] Blood erythrocytes count (nu mber/volume)Ordered By: Dr. Delgado on 10-18-2022 RBC (Bld) [#/Vol] 5.08 10*6/uL 4.6-6.2 [facility] Blood hemoglobin measurement (mass/volume)Ordered By: Dr. Delgado on 10-18-2022 Hemoglobin (Bld) [Mass/Vol] 15.0 g/dL 13.0-16.5 [facility] Blood lymphocytes/100 leukoc ytesOrdered By: Dr. Delgado on 10-18-2022 Lymphocytes/100 WBC (Bld) 15.1 % 19-41 [facility] Blood monocytes/100 leukocyt esOrdered By: Dr. Delgado on 10-18-2022 Monocytes/100 WBC (Bld) 9.1 % 0-[address] [facility] Blood platelet mean volumeOr dered By: Dr. Delgado on 10-18-2022 Platelet mean volume (Bld) [Entitic vol] 10.0 fL 6.2-12.0 [facility] Determination of erythrocyte mean corpuscular volume (MCV)Ordered By: Dr. Delgado on 10-18-2022 MCV (RBC) [Entitic vol] 89.0 fL 80-[address] [facility] Hematocrit Auto (Bld) [Volum e fraction]Ordered By: Dr. Delgado on 10-18-2022 Hematocrit (Bld) [Volume fraction] 45.2 % 40-54 [facility] Laboratory - Chemistry and C hemistry - challengeOrdered By: Dr. Delgado on 10-18-2022 ALP [Catalytic activity/Vol] 78 U/L 45-117 [facility] ALT [Catalytic activity/Vol] 40 U/L 16-61 [facility] CO2 [Moles/Vol] 28.0 mmol/L 21.0-32.0 [facility] [facility] Gl[facility] (S) [Mass/Vol] 3.8 g/dL 2.2-4.[address] [facility] Urea nitrogen/Creatinine [Mass ratio] 10.1 mg/mg 10-20 [facility] Laboratory - Hematology and Cell countsOrdered By: Dr. Delgado on 10-18-2022 Erythrocyte distribution width (RBC) [Entitic vol] 44.4 fL 35.1-43.9 [facility] Erythrocyte distribution width (RBC) [Ratio] 13.4 % 11.6-14.6 [facility] Immature granulocytes/100 WBC (Bld) 0.100 % 0.0-0.9 [facility] Comment on above: IG% - Immature Granu locytes (promyelocytes, myelocytes and metamyelocytes) > 1% indicates that a LEFT SHIFT is Present. MCH (RBC) [Entitic mass] 29.5 pg 27.0-32.0 [facility] Nucleated RBC/100 WBC (Bld) [Ratio] 0 % [facility] Auto (RBC) [Mass/Vol]Or dered By: Dr. Delgado on 10-18-2022 MCHC (RBC) [Mass/Vol] 33.2 g/dL 32-36 [facility] No Panel InformationOrdered By: Dr. Delgado on 10-18-2022 Estimated Creatinine Clearance Calc 77.13 ml/min [facility] Estimated GFR (MDRD) Amer 88 mL/min >60 [facility] Comment on above: GFR Calc Estimated GFR (MDRD) Non-Af Amer 73 mL/min >60 [facility] Comment on above: Non- GFR Calc Platelets bldOrdered By: Dr. Delgado on 10-18-2022 Platelets (Bld) [#/Vol] 247 10*3/uL 150-450 [facility] Serum or plasma albumin mary urement (mass/volume)Ordered By: Dr. Delgado on 10-18-2022 Albumin [Mass/Vol] 4.1 g/dL 3.2-5.0 [facility] Serum or plasma albumin/glob ulin mass ratioOrdered By: Dr. Delgado on 10-18-2022 Albumin/Globulin [Mass ratio] 1.1 {ratio} 0.9-2.4 [facility] Serum or plasma calcium mary urement (mass/volume)Ordered By: Dr. Delgado on 10-18-2022 Calcium [Mass/Vol] 9.0 mg/dL 8.5-10.1 [facility] Serum or plasma creatinine m easurement (mass/volume)Ordered By: Dr. Delgado on 10-18-2022 Creatinine [Mass/Vol] 1.09 mg/dL 0.70-1.30 [facility] Comment on above: The validity of the calculated GFR & GFRAA in patients over 70 years has not been determined. Clinical correlation is essential. Serum or plasma urea nitroge n measurement (mass/volume)Ordered By: Dr. Delgado on 10-18-2022 Urea nitrogen [Mass/Vol] 11 mg/dL 7-18 [facility] Thin prep Papanicolaou smear with manual screeningOrdered By: Dr. Delgado on 10-18-2022 Thin prep Papanicolaou smear with manual screening 24 U/L 15-37 [facility] Thin prep Papanicolaou smear with manual screening 6 5-15 [facility] Basophil percentageOrdered B y: Dr. Hsu on 10-05-2022 Bilirubin [Mass/Vol] 0.40 mg/dL 0.20-1.00 [facility] Comment on above: For patients on eltr ombopag therapy, use of Dimension Gardiner TBIL is not recommended. Cholesterol [Mass/Vol] 145 mg/dL <200 [facility] Comment on above: <200 mg/dL Desirable 200-240 mg/dL Borderline >240 mg/dL High Risk Protein [Mass/Vol] 8.2 g/dL 6.4-8.2 [facility] Triglyceride [Mass/Vol] 229 mg/dL <199 [facility] Comment on above: The drugs N-Acetylcy steine and Metamizole may falsely depress this assay.Serum Triglycerides Reference Interval Normal <150 mg/dL Borderline high 150 - 199 mg/dL High 200 - 499 mg/dL Very High > or = 500 mg/dL Direct bilirubinOrdered By: Dr. Hsu on 10-05-2022 Bilirubin.direct [Mass/Vol] 0.13 mg/dL 0.00-0.30 [facility] Laboratory - Chemistry and C hemistry - challengeOrdered By: Dr. Hsu on 10-05-2022 ALP [Catalytic activity/Vol] 80 U/L 45-117 [facility] ALT [Catalytic activity/Vol] 44 U/L 16-61 [facility] Globulin (S) [Mass/Vol] 4.0 g/dL 2.2-4.2 [facility] Serum or plasma albumin mary urement (mass/volume)Ordered By: Dr. Hsu on 10-05-2022 Albumin [Mass/Vol] 4.2 g/dL 3.2-5.0 [facility] Serum or plasma cholesterol in HDL measurement (mass/volume)Ordered By: Dr. Hsu on 10-05-2022 Cholesterol in HDL [Mass/Vol] 44 mg/dL >40 [facility] Comment on above: The drugs N-Acetylcy steine and Metamizole may falsely depress this assay. Reference Range HDL <40 mg/dL Low HDL Cholesterol HDL >or= 60 mg/dL High HDL Cholesterol Serum or plasma cholesterol in VLDL measurement (mass/volume)Ordered By: Dr. Hsu on 10-05-2022 Cholesterol in VLDL [Mass/Vol] 46 mg/dL 5-40 [facility] Serum or plasma low density lipoprotein (LDL) cholesterol measurement (mass/volume)Ordered By: Dr. Hsu on 10-05-2022 Cholesterol in LDL [Mass/Vol] 55 mg/dL 0-130 [facility] Thin prep Papanicolaou smear with manual screeningOrdered By: Dr. Hsu on 10-05-2022 Thin prep Papanicolaou smear with manual screening 25 U/L 15-37 [facility] Absolute lymphocyte countOrd ered By: Dr. Delgado on 10-04-2022 Lymphocytes Auto (Unsp spec) [#/Vol] 1.30 10*3/uL 0.83-4.51 [facility] Basophil percentageOrdered B y: Dr. Delgado on 10-04-2022 Basophil percentage 2.7 mg/dL 2.5-4.9 [facility] Basophils/100 WBC (Bld) 1.0 % 0-1 [facility] Bilirubin [Mass/Vol] 0.40 mg/dL 0.20-1.00 [facility] Comment on above: For patients on eltr ombopag therapy, use of Dimension Gardiner TBIL is not recommended. Chloride [Moles/Vol] 106 mmol/L 98-107 [facility] Eosinophils/100 WBC (Bld) 4.1 % 0-5 [facility] Glucose [Mass/Vol] 116 mg/dL 74-106 [facility] Comment on above: Fasting Glucose resu lt from 100 to 125 mg/dL suggests IMPAIRED HOMEOSTASIS per A.D.A. criteria. Neutrophils (Bld) [#/Vol] 4.9 10*3/uL 2.0-7.7 [facility] Neutrophils/100 WBC (Bld) 66.7 % 47-70 [facility] Potassium [Moles/Vol] 4.2 mmol/L 3.5-5.1 [facility] Protein [Mass/Vol] 8.0 g/dL 6.4-8.2 [facility] Sodium [Moles/Vol] 139 mmol/L 136-145 [facility] WBC (Bld) [#/Vol] 7.3 10*3/uL 4.4-11.0 [facility] Blood erythrocytes count (nu mber/volume)Ordered By: Dr. Delgado on 10-04-2022 RBC (Bld) [#/Vol] 5.30 10*6/uL 4.6-6.2 [facility] Blood hemoglobin measurement (mass/volume)Ordered By: Dr. Delgado on 10-04-2022 Hemoglobin (Bld) [Mass/Vol] 16.0 g/dL 13.0-16.5 [facility] Blood lymphocytes/100 leukoc ytesOrdered By: Dr. Delgado on 10-04-2022 Lymphocytes/100 WBC (Bld) 17.9 % 19-41 [facility] Blood monocytes/100 leukocyt esOrdered By: Dr. Delgado on 10-04-2022 Monocytes/100 WBC (Bld) 9.9 % 0-[address] [facility] Blood platelet mean volumeOr dered By: Dr. Delgado on 10-04-2022 Platelet mean volume (Bld) [Entitic vol] 10.1 fL 6.2-12.0 [facility] Determination of erythrocyte mean corpuscular volume (MCV)Ordered By: Dr. Delgado on 10-04-2022 MCV (RBC) [Entitic vol] 89.2 fL 80-[address] [facility] Hematocrit Auto (Bld) [Volum e fraction]Ordered By: Dr. Delgado on 10-04-2022 Hematocrit (Bld) [Volume fraction] 47.3 % 40-54 [facility] Laboratory - Chemistry and C hemistry - challengeOrdered By: Dr. Delgado on 10-04-2022 ALP [Catalytic activity/Vol] 68 U/L 45-117 [facility] ALT [Catalytic activity/Vol] 42 U/L 16-61 [facility] CO2 [Moles/Vol] 27.0 mmol/L 21.0-32.0 [facility] Globulin (S) [Mass/Vol] 3.9 g/dL 2.2-4.[address] [facility] Magnesium [Mass/Vol] 2.1 mg/dL 1.6-2.6 [facility] Urea nitrogen/Creatinine [Mass ratio] 11.5 mg/mg 10-20 [facility] Laboratory - Hematology and Cell countsOrdered By: Dr. Delgado on 10-04-2022 Erythrocyte distribution width (RBC) [Entitic vol] 43.5 fL 35.1-43.9 [facility] Erythrocyte distribution width (RBC) [Ratio] 13.3 % 11.6-14.6 [facility] Immature granulocytes/100 WBC (Bld) 0.400 % 0.0-0.9 [facility] Comment on above: IG% - Immature Granu locytes (promyelocytes, myelocytes and metamyelocytes) > 1% indicates that a LEFT SHIFT is Present. MCH (RBC) [Entitic mass] 30.2 pg 27.0-32.0 [facility] Nucleated RBC/100 WBC (Bld) [Ratio] 0 % 0-5 [facility] MCHC Auto (RBC) [Mass/Vol]Or dered By: Dr. Delgado on 10-04-2022 MCHC (RBC) [Mass/Vol] 33.8 g/dL 32-36 [facility] No Panel InformationOrdered By: Dr. Delgado on 10-04-2022 Estimated Creatinine Clearance Calc 87.57 ml/min [facility] Estimated GFR (MDRD) Amer 102 mL/min >60 [facility] Comment on above: GFR Calc Estimated GFR (MDRD) Non-Af Amer 84 mL/min >60 [facility] Comment on above: Non- GFR Calc Platelets bldOrdered By: Dr. Delgado on 10-04-2022 Platelets (Bld) [#/Vol] 253 10*3/uL 150-450 [facility] Serum or plasma albumin mary urement (mass/volume)Ordered By: Dr. Delgado on 10-04-2022 Albumin [Mass/Vol] 4.1 g/dL 3.2-5.0 [facility] Serum or plasma albumin/glob ulin mass ratioOrdered By: Dr. Delgado on 10-04-2022 Albumin/Globulin [Mass ratio] 1.1 {ratio} 0.9-2.4 [facility] Serum or plasma calcium mary urement (mass/volume)Ordered By: Dr. Delgado on 10-04-2022 Calcium [Mass/Vol] 9.1 mg/dL 8.5-10.1 [facility] Serum or plasma creatinine m easurement (mass/volume)Ordered By: Dr. Delgado on 10-04-2022 Creatinine [Mass/Vol] 0.96 mg/dL 0.70-1.30 [facility] Comment on above: The validity of the calculated GFR & GFRAA in patients over 70 years has not been determined. Clinical correlation is essential. Serum or plasma urea nitroge n measurement (mass/volume)Ordered By: Dr. Delgado on 10-04-2022 Urea nitrogen [Mass/Vol] 11 mg/dL 7-18 [facility] Thin prep Papanicolaou smear with manual screeningOrdered By: Dr. Delgado on 10-04-2022 Thin prep Papanicolaou smear with manual screening 27 U/L 15-37 [facility] Thin prep Papanicolaou smear with manual screening 6 5-15 [facility] Blood Glucose , Office ([phone])Ordered By: Loulou Church on 09-27-2022 Glucose Glucometer (BldC) [Moles/Vol] 104 1 Normal [facility]; [facility] Work Phone: CBC W/AUTO DIFF WBC ([phone])O rdered By: Calliope Player on 09-27-2022 Basophils (Bld) [#/Vol] 0.1 10*3/uL Normal 0.0-0.2 [facility]; [facility] Work Phone: Basophils/100 WBC (Bld) 1 % Normal [facility]; [facility] Work Phone: Eosinophils (Bld) [#/Vol] 0.3 10*3/uL Normal 0.0-0.4 [facility]; [facility] Work Phone: Eosinophils/100 WBC (Bld) 5 % Normal [facility]; [facility] Work Phone: Erythrocyte distribution width (RBC) [Ratio] 12.7 % Normal 11.6-15.4 [facility]; [facility] Work Phone: Hematocrit (Bld) [Volume fraction] 44.9 % Normal 37.5-51.0 [facility]; [facility] Work Phone: Hemoglobin (Bld) [Mass/Vol] 15.2 g/dL Normal 13.0-17.7 [facility]; [facility] Work Phone: Immature granulocytes (Bld) [#/Vol] 0.0 10*3/uL Normal 0.0-0.1 [facility]; [facility] Work Phone: Immature granulocytes/100 WBC (Bld) 0 % Normal [facility]; [facility] Work Phone: Lymphocytes (Bld) [#/Vol] 1.1 10*3/uL Normal 0.7-3.1 [facility]; [facility] Work Phone: Lymphocytes/100 WBC (Bld) 17 % Normal [facility]; [facility] Work Phone: MCH (RBC) [Entitic mass] 30.0 pg Normal 26.6-33.0 [facility]; [facility] Work Phone: MCHC (RBC) [Mass/Vol] 33.9 g/dL Normal 31.5-35.7 [facility]; [facility] Work Phone: MCV (RBC) [Entitic vol] 89 fL Normal 79-97 [facility]; [facility] Work Phone: Monocytes (Bld) [#/Vol] 0.7 10*3/uL Normal 0.1-0.9 [facility]; [facility] Work Phone: Monocytes/100 WBC (Bld) 11 % Normal [facility]; [facility] Work Phone: Neutrophils (Bld) [#/Vol] 4.3 10*3/uL Normal 1.4-7.0 [facility]; [facility] Work Phone: Neutrophils/100 WBC (Bld) 66 % Normal [facility]; [facility] Work Phone: Platelets (Bld) [#/Vol] 234 10*3/uL Normal 150-450 [facility]; [facility] Work Phone: RBC (Bld) [#/Vol] 5.06 10*6/uL [facility] 4.14-5.80 [facility] Work Phone: WBC (Bld) [#/Vol] 6.5 10*3/uL Normal 3.4-10.8 [facility]; [facility] Work Phone: HgA1C , Office ([phone])Ordere d By: Loulou Church on 09-27-2022 HbA1c (Bld) [Mass fraction] 6.7 % Normal 4.6 - 7.1 [facility]; [facility] Work Phone: LIPID PANEL ([id number])Ordered B y: Calliope Player on 09-27-2022 Cholesterol [Mass/Vol] 138 mg/dL Normal 100-199 [facility]; [facility] Work Phone: Cholesterol in HDL [Mass/Vol] 42 mg/dL Normal [facility]; [facility] Work Phone: Triglyceride [Mass/Vol] 138 mg/dL Normal 0-149 [facility]; [facility] Work Phone: LIPID PANEL ([id number]) 24 mg/dL Normal 5-40 [facility]; [facility] Work Phone: LIPID PANEL ([id number]) 72 mg/dL Normal 0-99 [facility]; [facility] Work Phone: LIPID PANEL ([id number]) 1.7 {ratio} Normal 0.0-3.6 [facility] Work Phone: METABOLIC PANEL, COMPREHENSI VE ([id number])Ordered By: Calliope Player on 09-27-2022 Albumin [Mass/Vol] 4.6 g/dL Normal 3.8-4.8 [facility]; [facility] Work Phone: Albumin/Globulin [Mass ratio] 1.8 {ratio} Normal 1.2-2.2 [facility]; [facility] Work Phone: ALP [Catalytic activity/Vol] 74 U/L Normal 44-121 [facility]; [facility] Work Phone: ALT [Catalytic activity/Vol] 26 U/L Normal 0-44 [facility]; [facility] Work Phone: AST [Catalytic activity/Vol] 23 U/L Normal 0-40 [facility]; [facility] Work Phone: Bilirubin [Mass/Vol] 0.3 mg/dL Normal 0.0-1.2 [facility]; [facility] Work Phone: Calcium [Mass/Vol] 9.5 mg/dL Normal 8.6-10.2 [facility]; [facility] Work Phone: Chloride [Moles/Vol] 103 mmol/L Normal 96-106 [facility]; [facility] Work Phone: CO2 [Moles/Vol] 24 mmol/L Normal 20-29 [facility]; [facility] Work Phone: Creatinine [Mass/Vol] 0.91 mg/dL Normal 0.76-1.27 [facility] Internal Medicine; [facility] Work Phone: Globulin (S) [Mass/Vol] 2.5 g/dL Normal 1.5-4.5 [facility]; [facility] Work Phone: Glucose [Mass/Vol] 109 mg/dL Abnormal 70-99 [facility]; [facility] Work Phone: Potassium [Moles/Vol] 4.5 mmol/L Normal 3.5-5.2 [facility] Internal Medicine; [facility] Work Phone: Protein [Mass/Vol] 7.1 g/dL Normal 6.0-8.5 [facility]; [facility] Work Phone: Sodium [Moles/Vol] 140 mmol/L Normal 134-144 [facility]; [facility] Work Phone: Urea nitrogen [Mass/Vol] 10 mg/dL Normal 8-27 [facility]; [facility] Work Phone: Urea nitrogen/Creatinine [Mass ratio] 11 mg/mg Normal 10-24 [facility]; [facility] Work Phone: METABOLIC PANEL, COMPREHENSIVE ([phone]) 95 mL/min/1.73 Normal [facility]; [facility] Work Phone: MICROALBUMINOrdered By: Novaliq em Horse Rancher on 09-27-2022 Albumin DL <= 20 mg/L (U) [Mass/Vol] 20.5 ug/mL Normal [facility]; [facility] Work Phone: Albumin/Creatinine (U) [Mass ratio] 16 {mg/g_creat} Normal 0-29 [facility]; [facility] Work Phone: Creatinine (U) [Mass/Vol] 130.5 mg/dL Normal [facility]; [facility] Work Phone: TSH ([phone])Ordered By: Diassess Horse Rancher on 09-27-2022 TSH Qn 2.710 {uIU/mL} Normal 0.450-4.50 0 [facility]; [facility] Work Phone: URINALYSIS, W/ MICRO ([phone]) Ordered By: Calliope Player on 09-27-2022 Appearance (U) Cloudy Abnormal [facility]; [facility] Work Phone: Bilirubin Ql (U) Negative Normal [facility]; [facility] Work Phone: Color (U) Yellow Normal [facility]; [facility] Work Phone: Glucose Ql (U) Negative Normal [facility]; [facility] Work Phone: Hemoglobin Ql (U) Negative Normal [facility]; [facility] Work Phone: Ketones Ql (U) Negative Normal [facility]; [facility] Work Phone: Leukocyte esterase Test strip Ql (U) Negative Normal [facility]; [facility] Work Phone: Microscopic observation LM Nom (Urine sed) MICRON Normal [facility]; [facility] Work Phone: Microscopic observation LM Nom (Urine sed) See below: Normal [facility]; [facility] Work Phone: Nitrite Ql (U) Negative Normal [facility]; [facility] Work Phone: pH (U) 6.5 [pH] Normal 5.0-7.5 [facility]; [facility] Work Phone: Protein Ql (U) Trace Normal [facility]; [facility] Work Phone: Specific gravity (U) [Rel density] 1.020 1 Normal 1.005-1.03 0 [facility]; [facility] Work Phone: Urobilinogen (U) [Mass/Vol] 0.2 mg/dL Normal 0.2-1.0 [facility]; [facility] Work Phone: Absolute lymphocyte countOrd ered By: Dr. Delgado on 09-06-2022 Lymphocytes Auto (Unsp spec) [#/Vol] 1.39 10*3/uL 0.83-4.51 [facility] Basophil percentageOrdered B y: Dr. Delgado on 09-06-2022 Basophil percentage 2.7 mg/dL 2.5-4.9 [facility] Basophils/100 WBC (Bld) 0.8 % 0-[address] [facility] Bilirubin [Mass/Vol] 0.40 mg/dL 0.20-1.00 [facility] Comment on above: For patients on eltr ombopag therapy, use of Dimension Gardiner TBIL is not recommended. Chloride [Moles/Vol] 108 mmol/L 98-107 [facility] Eosinophils/100 WBC (Bld) 4.2 % 0-5 [facility] Glucose [Mass/Vol] 116 mg/dL 74-106 [facility] Comment on above: Fasting Glucose resu lt from 100 to 125 mg/dL suggests IMPAIRED HOMEOSTASIS per A.D.A. criteria. Neutrophils (Bld) [#/Vol] 4.1 10*3/uL 2.0-7.7 [facility] Neutrophils/100 WBC (Bld) 62.8 % 47-70 [facility] Potassium [Moles/Vol] 3.9 mmol/L 3.5-5.1 [facility] Protein [Mass/Vol] 7.9 g/dL 6.4-8.2 [facility] Sodium [Moles/Vol] 141 mmol/L 136-145 [facility] WBC (Bld) [#/Vol] 6.6 10*3/uL 4.4-11.0 [facility] Blood erythrocytes count (nu mber/volume)Ordered By: Dr. Delgado on 09-06-2022 RBC (Bld) [#/Vol] 5.03 10*6/uL 4.6-6.2 [facility] Blood hemoglobin measurement (mass/volume)Ordered By: Dr. Delgado on 09-06-2022 Hemoglobin (Bld) [Mass/Vol] 15.2 g/dL 13.0-16.5 [facility] Blood lymphocytes/100 leukoc ytesOrdered By: Dr. Delgado on 09-06-2022 Lymphocytes/100 WBC (Bld) 21.1 % 19-41 [facility] Blood monocytes/100 leukocyt esOrdered By: Dr. Delgado on 09-06-2022 Monocytes/100 WBC (Bld) 10.8 % 0-[address] [facility] Blood platelet mean volumeOr dered By: Dr. Delgado on 09-06-2022 Platelet mean volume (Bld) [Entitic vol] 9.8 fL 6.2-12.0 [facility] Determination of erythrocyte mean corpuscular volume (MCV)Ordered By: Dr. Delgado on 09-06-2022 MCV (RBC) [Entitic vol] 90.3 fL 80-[address] [facility] Hematocrit Auto (Bld) [Volum e fraction]Ordered By: Dr. Delgado on 09-06-2022 Hematocrit (Bld) [Volume fraction] 45.4 % 40-54 [facility] Hemoglobin in reticulocytes (mass per reticulocyte)Ordered By: Dr. Delgado on 09-06-2022 Hemoglobin (Reticulocytes) [Entitic mass] 33.1 pg 30-35 [facility] Laboratory - Chemistry and C hemistry - challengeOrdered By: Dr. Delgado on 09-06-2022 ALP [Catalytic activity/Vol] 70 U/L 45-117 [facility] ALT [Catalytic activity/Vol] 37 U/L 16-61 [facility] CO2 [Moles/Vol] 28.0 mmol/L 21.0-32.0 [facility] Globulin (S) [Mass/Vol] 3.9 g/dL 2.2-4.[address] [facility] Magnesium [Mass/Vol] 2.1 mg/dL 1.6-2.6 [facility] Urea nitrogen/Creatinine [Mass ratio] 15.3 mg/mg 10-20 [facility] - Hematology and Cell countsOrdered By: Dr. Delgado on 09-06-2022 Erythrocyte distribution width (RBC) [Entitic vol] 43.3 fL 35.1-43.9 [facility] Erythrocyte distribution width (RBC) [Ratio] 13.2 % 11.6-14.6 [facility] Immature granulocytes/100 WBC (Bld) 0.300 % 0.0-0.9 [facility] Comment on above: IG% - Immature Granu locytes (promyelocytes, myelocytes and metamyelocytes) > 1% indicates that a LEFT SHIFT is Present. MCH (RBC) [Entitic mass] 30.2 pg 27.0-32.0 [facility] Nucleated RBC/100 WBC (Bld) [Ratio] 0 % 0-5 [facility] MCHC Auto (RBC) [Mass/Vol]Or dered By: Dr. Delgado on 09-06-2022 MCHC (RBC) [Mass/Vol] 33.5 g/dL 32-36 [facility] No Panel InformationOrdered By: Dr. Delgado on 09-06-2022 Estimated Creatinine Clearance Calc 91.38 ml/min [facility] Estimated GFR (MDRD) Amer 108 mL/min >60 [facility] Comment on above: GFR Calc Estimated GFR (MDRD) Non-Af Amer 89 mL/min >60 [facility] Comment on above: Non- GFR Calc Immature Reticulocyte Fraction 5.70 % 3.00-15.90 [facility] Reticulocyte Count 0.95 % 0.5-1.5 [facility] Platelets bldOrdered By: Dr. Delgado on 09-06-2022 Platelets (Bld) [#/Vol] 233 10*3/uL 150-450 [facility] Serum or plasma albumin mary urement (mass/volume)Ordered By: Dr. Delgado on 09-06-2022 Albumin [Mass/Vol] 4.0 g/dL 3.2-5.0 [facility] Serum or plasma albumin/glob ulin mass ratioOrdered By: Dr. Delgado on 09-06-2022 Albumin/Globulin [Mass ratio] 1.0 {ratio} 0.9-2.4 [facility] Serum or plasma calcium mary urement (mass/volume)Ordered By: Dr. Delgado on 09-06-2022 Calcium [Mass/Vol] 9.0 mg/dL 8.5-10.1 [facility] Serum or plasma creatinine m easurement (mass/volume)Ordered By: Dr. Delgado on 09-06-2022 Creatinine [Mass/Vol] 0.92 mg/dL 0.70-1.30 [facility] Comment on above: The validity of the calculated GFR & GFRAA in patients over 70 years has not been determined. Clinical correlation is essential. Serum or plasma urea nitroge n measurement (mass/volume)Ordered By: Dr. Delgado on 09-06-2022 Urea nitrogen [Mass/Vol] 14 mg/dL 7-18 [facility] Thin prep Papanicolaou smear with manual screeningOrdered By: Dr. Delgado on 09-06-2022 Thin prep Papanicolaou smear with manual screening 24 U/L 15-37 [facility] Thin prep Papanicolaou smear with manual screening 5 5-15 [facility] Absolute lymphocyte countOrd ered By: Dr. Delgado on 08-23-2022 Lymphocytes Auto (Unsp spec) [#/Vol] 1.39 10*3/uL 0.83-4.51 [facility] Basophil percentageOrdered B y: Dr. Delgado on 08-23-2022 Basophil percentage 2.9 mg/dL 2.5-4.9 [facility] Basophils/100 WBC (Bld) 0.7 % 0-1 [facility] Bilirubin [Mass/Vol] 0.50 mg/dL 0.20-1.00 [facility] Comment on above: For patients on eltr ombopag therapy, use of Dimension [place] TBIL is not recommended. Chloride [Moles/Vol] 105 mmol/L 98-107 [facility] Eosinophils/100 WBC (Bld) 4.0 % 0-5 [facility] Glucose [Mass/Vol] 155 mg/dL 74-106 [facility] Comment on above: Fasting Glucose resu lt greater than or equal to 126 mg/dL suggests DIABETES MELLITUS per A.D.A. criteria. Neutrophils (Bld) [#/Vol] 4.9 10*3/uL 2.0-7.7 [facility] Neutrophils/100 WBC (Bld) 67.0 % 47-70 [facility] Potassium [Moles/Vol] 3.9 mmol/L 3.5-5.1 [facility] Protein [Mass/Vol] 8.3 g/dL 6.4-8.2 [facility] Sodium [Moles/Vol] 140 mmol/L 136-145 [facility] WBC (Bld) [#/Vol] 7.3 10*3/uL 4.4-11.0 [facility] Blood erythrocytes count (nu mber/volume)Ordered By: Dr. Delgado on 08-23-2022 RBC (Bld) [#/Vol] 5.30 10*6/uL 4.6-6.2 [facility] Blood hemoglobin measurement (mass/volume)Ordered By: Dr. Delgado on 08-23-2022 Hemoglobin (Bld) [Mass/Vol] 16.2 g/dL 13.0-16.5 [facility] Blood lymphocytes/100 leukoc ytesOrdered By: Dr. Delgado on 08-23-2022 Lymphocytes/100 WBC (Bld) 19.1 % 19-41 [facility] Blood monocytes/100 leukocyt esOrdered By: Dr. Delgado on 08-23-2022 Monocytes/100 WBC (Bld) 9.1 % 0-10 [facility] Blood platelet mean volumeOr dered By: Dr. Delgado on 08-23-2022 Platelet mean volume (Bld) [Entitic vol] 10.2 fL 6.2-12.0 [facility] Determination of erythrocyte mean corpuscular volume (MCV)Ordered By: Dr. Delgado on 08-23-2022 MCV (RBC) [Entitic vol] 90.8 fL 80-[address] [facility] Hematocrit Auto (Bld) [Volum e fraction]Ordered By: Dr. Delgado on 08-23-2022 Hematocrit (Bld) [Volume fraction] 48.1 % 40-54 [facility] Hemoglobin in reticulocytes (mass per reticulocyte)Ordered By: Dr. Delgado on 08-23-2022 Hemoglobin (Reticulocytes) [Entitic mass] 32.3 pg 30-35 [facility] Laboratory - Chemistry and C hemistry - challengeOrdered By: Dr. Delgado on 08-23-2022 ALP [Catalytic activity/Vol] 82 U/L 45-117 [facility] ALT [Catalytic activity/Vol] 26 U/L 16-61 [facility] CO2 [Moles/Vol] 28.0 mmol/L 21.0-32.0 [facility] Globulin (S) [Mass/Vol] 4.0 g/dL 2.2-4.2 [facility] Magnesium [Mass/Vol] 2.1 mg/dL 1.6-2.6 [facility] Urea nitrogen/Creatinine [Mass ratio] 9.8 mg/mg 10-20 [facility] Laboratory - Hematology and Cell countsOrdered By: Dr. Delgado on 08-23-2022 Erythrocyte distribution width (RBC) [Entitic vol] 43.3 fL 35.1-43.9 [facility] Erythrocyte distribution width (RBC) [Ratio] 13.0 % 11.6-14.6 [facility] Immature granulocytes/100 WBC (Bld) 0.100 % 0.0-0.9 [facility] Comment on above: IG% - Immature Granu locytes (promyelocytes, myelocytes and metamyelocytes) > 1% indicates that a LEFT SHIFT is Present. MCH (RBC) [Entitic mass] 30.6 pg 27.0-32.0 [facility] Nucleated RBC/100 WBC (Bld) [Ratio] 0 % 0-5 [facility] [Mass/Vol]Or dered By: Dr. Delgado on 08-23-2022 MCHC (RBC) [Mass/Vol] 33.7 g/dL 32-36 [facility] No Panel InformationOrdered By: Dr. Delgado on 08-23-2022 Estimated Creatinine Clearance Calc 82.42 ml/min [facility] Estimated GFR (MDRD) Amer 95 mL/min >60 [facility] Comment on above: GFR Calc Estimated GFR (MDRD) Non-Af Amer 79 mL/min >60 [facility] Comment on above: Non- GFR Calc Immature Reticulocyte Fraction 1.60 % 3.00-15.90 [facility] Reticulocyte Count 0.80 % 0.5-1.5 [facility] Platelets bldOrdered By: Dr. Delgado on 08-23-2022 Platelets (Bld) [#/Vol] 230 10*3/uL 150-450 [facility] Serum or plasma albumin mary urement (mass/volume)Ordered By: Dr. Delgado on 08-23-2022 Albumin [Mass/Vol] 4.3 g/dL 3.2-5.0 [facility] Serum or plasma albumin/glob ulin mass ratioOrdered By: Dr. Delgado on 08-23-2022 Albumin/Globulin [Mass ratio] 1.1 {ratio} 0.9-2.4 [facility] Serum or plasma calcium mary urement (mass/volume)Ordered By: Dr. Delgado on 08-23-2022 Calcium [Mass/Vol] 9.1 mg/dL 8.5-10.1 [facility] Serum or plasma creatinine m easurement (mass/volume)Ordered By: Dr. Delgado on 08-23-2022 Creatinine [Mass/Vol] 1.02 mg/dL 0.70-1.30 [facility] Comment on above: The validity of the calculated GFR & GFRAA in patients over 70 years has not been determined. Clinical correlation is essential. Serum or plasma urea nitroge n measurement (mass/volume)Ordered By: Dr. Delgado on 08-23-2022 Urea nitrogen [Mass/Vol] 10 mg/dL 7-18 [facility] Thin prep Papanicolaou smear with manual screeningOrdered By: Dr. Delgado on 08-23-2022 Thin prep Papanicolaou smear with manual screening 22 U/L 15-37 [facility] Thin prep Papanicolaou smear with manual screening 7 5-15 [facility] Absolute lymphocyte countOrd ered By: Dr. Delgado on 08-16-2022 Lymphocytes Auto (Unsp spec) [#/Vol] 1.25 10*3/uL 0.83-4.51 [facility] Basophil percentageOrdered B y: Dr. Delgado on 08-16-2022 Basophils/100 WBC (Bld) 1.1 % 0-1 [facility] Bilirubin [Mass/Vol] 0.40 mg/dL 0.20-1.00 [facility] Comment on above: For patients on eltr ombopag therapy, use of Dimension [place] TBIL is not recommended. Chloride [Moles/Vol] 105 mmol/L 98-107 [facility] Eosinophils/100 WBC (Bld) 5.6 % 0-5 [facility] Glucose [Mass/Vol] 101 mg/dL 74-106 [facility] Comment on above: Fasting Glucose resu lt from 100 to 125 mg/dL suggests IMPAIRED HOMEOSTASIS per A.D.A. criteria. Neutrophils (Bld) [#/Vol] 4.1 10*3/uL 2.0-7.7 [facility] Neutrophils/100 WBC (Bld) 61.5 % 47-70 [facility] Potassium [Moles/Vol] 4.1 mmol/L 3.5-5.1 [facility] Protein [Mass/Vol] 7.6 g/dL 6.4-8.2 [facility] Sodium [Moles/Vol] 140 mmol/L 136-145 [facility] WBC (Bld) [#/Vol] 6.6 10*3/uL 4.4-11.0 [facility] Blood erythrocytes count (nu mber/volume)Ordered By: Dr. Delgado on 08-16-2022 RBC (Bld) [#/Vol] 5.16 10*6/uL 4.6-6.2 [facility] Blood hemoglobin measurement (mass/volume)Ordered By: Dr. Delgado on 08-16-2022 Hemoglobin (Bld) [Mass/Vol] 15.6 g/dL 13.0-16.5 [facility] Blood lymphocytes/100 leukoc ytesOrdered By: Dr. Delgado on 08-16-2022 Lymphocytes/100 WBC (Bld) 18.9 % 19-41 [facility] Blood monocytes/100 leukocyt esOrdered By: Dr. Delgado on 08-16-2022 Monocytes/100 WBC (Bld) 12.7 % 0-[address] [facility] Blood platelet mean volumeOr dered By: Dr. Delgado on 08-16-2022 Platelet mean volume (Bld) [Entitic vol] 10.1 fL 6.2-12.0 [facility] Determination of erythrocyte mean corpuscular volume (MCV)Ordered By: Dr. Delgado on 08-16-2022 MCV (RBC) [Entitic vol] 91.9 fL 80-[address] [facility] Hematocrit Auto (Bld) [Volum e fraction]Ordered By: Dr. Delgado on 08-16-2022 Hematocrit (Bld) [Volume fraction] 47.4 % 40-54 [facility] Hemoglobin in reticulocytes (mass per reticulocyte)Ordered By: Dr. Delgado on 08-16-2022 Hemoglobin (Reticulocytes) [Entitic mass] 33.7 pg 30-35 [facility] Laboratory - Chemistry and C hemistry - challengeOrdered By: Dr. Delgado on 08-16-2022 ALP [Catalytic activity/Vol] 68 U/L 45-117 [facility] ALT [Catalytic activity/Vol] 25 U/L 16-61 [facility] CO2 [Moles/Vol] 29.0 mmol/L 21.0-32.0 [facility] Globulin (S) [Mass/Vol] 3.7 g/dL 2.2-4.[address] [facility] Urea nitrogen/Creatinine [Mass ratio] 13.8 mg/mg 10-20 [facility] Laboratory - Hematology and Cell countsOrdered By: Dr. Delgado on 08-16-2022 Erythrocyte distribution width (RBC) [Entitic vol] 44.0 fL 35.1-43.9 [facility] Erythrocyte distribution width (RBC) [Ratio] 13.0 % 11.6-14.6 [facility] Immature granulocytes/100 WBC (Bld) 0.200 % 0.0-0.9 [facility] Comment on above: IG% - Immature Granu locytes (promyelocytes, myelocytes and metamyelocytes) > 1% indicates that a LEFT SHIFT is Present. MCH (RBC) [Entitic mass] 30.2 pg 27.0-32.0 [facility] Nucleated RBC/100 WBC (Bld) [Ratio] 0 % 0-5 [facility] MCHC Auto (RBC) [Mass/Vol]Or dered By: Dr. Delgado on 08-16-2022 MCHC (RBC) [Mass/Vol] 32.9 g/dL 32-36 [facility] No Panel InformationOrdered By: Dr. Delgado on 08-16-2022 Estimated Creatinine Clearance Calc 96.63 ml/min [facility] Estimated GFR (MDRD) Amer 115 mL/min >60 [facility] Comment on above: GFR Calc Estimated GFR (MDRD) Non-Af Amer 95 mL/min >60 [facility] Comment on above: Non- GFR Calc Immature Reticulocyte Fraction 6.00 % 3.00-15.90 [facility] Reticulocyte Count 0.88 % 0.5-1.5 [facility] Platelets bldOrdered By: Dr. Delgado on 08-16-2022 Platelets (Bld) [#/Vol] 227 10*3/uL 150-450 [facility] Serum or plasma albumin mary urement (mass/volume)Ordered By: Dr. Delgado on 08-16-2022 Albumin [Mass/Vol] 3.9 g/dL 3.2-5.0 [facility] Serum or plasma albumin/glob ulin mass ratioOrdered By: Dr. Delgado on 08-16-2022 Albumin/Globulin [Mass ratio] 1.1 {ratio} 0.9-2.4 [facility] Serum or plasma calcium mary urement (mass/volume)Ordered By: Dr. Delgado on 08-16-2022 Calcium [Mass/Vol] 8.9 mg/dL 8.5-10.1 [facility] Serum or plasma creatinine m easurement (mass/volume)Ordered By: Dr. Delgado on 08-16-2022 Creatinine [Mass/Vol] 0.87 mg/dL 0.70-1.30 [facility] Comment on above: The validity of the calculated GFR & GFRAA in patients over 70 years has not been determined. Clinical correlation is essential. Serum or plasma urea nitroge n measurement (mass/volume)Ordered By: Dr. Delgado on 08-16-2022 Urea nitrogen [Mass/Vol] 12 mg/dL 7-18 [facility] Thin prep Papanicolaou smear with manual screeningOrdered By: Dr. Delgado on 08-16-2022 Thin prep Papanicolaou smear with manual screening 19 U/L 15-37 [facility] Thin prep Papanicolaou smear with manual screening 6 5-15 [facility] No Panel InformationOrdered By: Dr. Delgado on 08-08-2022 Miscellaneous Test See comment [facility] Comment on above: TEST RESULT LIMITSBC R-ABL1, CML/ALL, PCR, Quant e13a2 (b2a2) transcript 0.0840 % e14a2 (b3a2) transcript % <0.0032 % e1a2 transcript % <0.0032 %Interpretation: Positive POSITIVE for the BCR-ABL1 e13a2 (b2a2, p210) fusion transcript.Director Arlene Mckeon, PhD, FACMGDirector, Molecular OncologyLabco Center for Molecular Biology and PathologyResZephyrhills, [place] [phone] assay can detect three different types of BCR-ABL1 fusion transcripts associated with CML, ALL, and AML: e13a2 (previously b2a2) and e14a2 (previously b3a2) (major breakpoint, p210), as well as e1a2 (minor breakpoint, p190). The e13a2 and e14a2 transcript values are titrated to the current International Scale (IS). The standardized baseline is 100% BCR-ABL1 (IS) and major molecular response (MMR) is equivalent to 0.1% BCR-ABL1 (IS) corresponding to a 3-log reduction. Results should be correlated with appropriate clinical and laboratory information as indicated.Methodology Total RNA is isolated from the sample and subject to a real-time, reverse transcriptase polymerase chain reaction (RT-PCR). The PCR primers and probes are specific for BCR-ABL1 e13a2, e14a2 and e1a2 fusion transcripts. The ABL1 transcript is amplified as the control for cDNA quantity and quality. Serial dilutions of a validated positive control RNA with known t(9;22) BCR-ABL1 are used as reference for quantification of BCR-ABL1 relative to ABL1. The numeric BCR-ABL1 level is reported as % BCR-ABL1/ABL1 and the detection sensitivity is 4.5 log below the standard baseline(<0.0032%).This test was developed and its performance characteristics determined by [employer]. It has not been cleared or approved by the Food and Drug Administration. TESTING PERFORMED AT [facility]. ORIGINAL REPORT ON FILE IN LAB CONTAINS ADDITIONAL TEST SITE INFORMATION. Blood Glucose , Office [phone])Ordered By: Juanito Wells on 06-28-2022 Glucose Glucometer (BldC) [Moles/Vol] 91 1 Normal [facility] Work Phone: HgA1C , Office ([phone])Ordere d By: Juanito Wells on 06-28-2022 HbA1c (Bld) [Mass fraction] 6.3 % Normal 4.6 - 7.1 [facility]; [facility] Work Phone: No Panel InformationOrdered By: Dr. Delgado on 06-20-2022 Miscellaneous Test See comment [facility] Comment on above: TEST RESULT LIMITSBC R-ABL1, CML/ALL, PCR, [id number] (b2a2) transcript 0.1436 %e14a2 (b3a2) transcript % <0.0032 %e1a2 transcript % <0.0032 %Interpretation: Positive POSITIVE for the BCR-ABL1 e13a2 (b2a2, p210) fusion transcript.Director Arlene Mckeon, PhD, FACMGDirector, Molecular OncologyFarren [facility] Molecular Biology and [place]ologyGen[place], [place] [phone] assay can detect three different types of BCR-ABL1 fusion transcripts associated with CML, ALL, and AML: e13a2 (previously b2a2) and e14a2 (previously b3a2) (major breakpoint, p210), as well as e1a2 (minor breakpoint, p190). The e13a2 and e14a2 transcript values are titrated to the current International Scale (IS). The standardized baseline is 100% BCR-ABL1 (IS) and major molecular response (MMR) is equivalent to 0.1% BCR-ABL1 (IS) corresponding to a 3-log reduction. Results should be correlated with appropriateclinical and laboratory information as indicated.Methodology Total RNA is isolated from the sample and subject to a real-time, reverse transcriptase polymerase chain reaction (RT-PCR). The PCR primers and probes are specific for BCR-ABL1 e13a2, e14a2 and e1a2 fusion transcripts. The ABL1 transcript is amplified as the control for cDNA quantity and quality. Serial dilutions of a validated positive control RNA with known t(9;22) BCR-ABL1 are used as reference for quantification of BCR-ABL1 relative to ABL1. The numeric BCR-ABL1 level is reported as % BCR-ABL1/ABL1 and thedetection sensitivity is 4.5 log below the standard baseline(<0.0032%).This test was developed and its performance characteristics determined by [facility]. It has not been cleared or approved by the Food and Drug Administration. TESTING PERFORMED AT [facility]. ORIGINAL REPORT ON FILE IN LAB CONTAINS ADDITIONAL TEST SITE INFORMATION. Anaerobic cultureOrdered By: Dr. Kent on 06-12-2022 Bacteria identified Anaer cx Nom (Unsp spec) No growth in 5 days. [facility] Bacterial body fluid culture Ordered By: Dr. Kent on 06-08-2022 Bacteria identified Cx Nom (Body fld) No growth aerobically. [facility] Laboratory - Microbiology an d Antimicrobial susceptibilityOrdered By: Dr. Kent on 06-08-2022 Bacteria identified Cx Nom (Bld) No growth in [address] [facility] [address] HEAD OR BRAIN WITHOUT CON TRASTon 06-05-2022 CT HEAD OR BRAIN WITHOUT CONTRAST EXAMINATION: CT HEAD OR BRAIN WITHOUT CONTRAST HISTORY: ORDERING SYSTEM PROVIDED HISTORY: syncope, TECHNOLOGIST PROVIDED HISTORY: Illness/Other Reason for exam: syncope Encounter Type: Initial Additional signs and symptoms: no ORDERING SYSTEM PROVIDED DIAGNOSIS CODES: R55 Syncope, unspecified syncope type S00.93XA Contusion of head, unspecified part of head, initial encounter COMPARISON: None TECHNIQUE: CT examination of the head without IV contrast. Dose reduction techniques were achieved by using automated exposure control and/or adjustment of mA and/or kV according to patient size and/or use of iterative reconstruction technique. FINDINGS: Motion artifact limits evaluation. There is no acute intracranial hemorrhage. There is no visible cerebral edema or space-occupying mass. There is no midline shift. There are no CT findings of acute territorial infarction. There are very mild involutional changes with commensurate prominence of the CSF spaces. The basilar cisterns are preserved. The calvarium is intact. There is no mastoid or middle ear effusion. There is no paranasal sinus air-fluid level. IMPRESSION: No acute intracranial pathology or mass effect. Workstation ID: [id number] Dictated by: ZANA BENSON on SatJun 05, 2022 6:33:39 PM EST Transcribed by: ZANA BENSON on SatJun 05, 2022 6:33:39 PM EST Finalized by: ZANA BENSON on SatJun 05, 2022 6:33:[address] [facility] Comment on above: Order Comment: Injur y/Trauma or Illness?:Illness/Other How long have you had these symptoms (acute/chronic)?:Acute Reason for exam?:syncope Type of Exam?:Initial Additional signs and symptoms?:no XR ANKLE RIGHT 3+ VIEWS (STA NDARD)on 06-05-2022 XR ANKLE RIGHT 3+ VIEWS (STANDARD) EXAMINATION: XR ANKLE RIGHT 3+ VIEWS (STANDARD) 06/05/2022 5:55 pm HISTORY: ORDERING SYSTEM PROVIDED HISTORY: ankle pain, TECHNOLOGIST PROVIDED HISTORY: Injury/Trauma Reason for exam: ankle pain, injury Cancer History: no Surgery, RadiationHistory: no Encounter Type: Initial Mechanism of injury: fall ORDERING SYSTEM PROVIDED DIAGNOSIS CODES: R55 Syncope, unspecified syncope type S00.93XA Contusion of head, unspecified part of head, initial encounter COMPARISON: None. FINDINGS: The bones are normally mineralized. There is no acute fracture. There is no joint dislocation. There is soft tissue swelling. IMPRESSION: No acute osseous pathology. Workstation ID: [id number] Dictated by: ZANA BENSON on SatJun 05, 2022 6:30:47 PM EST Transcribed by: ZANA BENSON on SatJun 05, 2022 6:30:47 PM EST Finalized by: ZANA BENSON on SatJun 05, 2022 6:30:47 PM EST [facility] Comment on above: Order Comment: Injur y/Trauma or Illness?:Injury/Trauma How long have you had these symptoms (acute/chronic)?:Acute Reason for exam?:ankle pain, injury History of cancer?:no Surgeries, chemotherapy, or radiation?:no Type of Exam?:Initial Mechanism of injury?:fall XR CHEST PA/APon 06-05-2022 XR CHEST PA/AP EXAMINATION: XR CHEST PA/AP 06/05/2022 5:55 pm HISTORY: ORDERING SYSTEM PROVIDED HISTORY: syncope, TECHNOLOGIST PROVIDED HISTORY: Illness/Other Reason for exam: syncope Cancer History: no Surgery, RadiationHistory: no Encounter Type: Initial Additional signs and symptoms: no ORDERING SYSTEM PROVIDED DIAGNOSIS CODES: R55 Syncope, unspecified syncope type S00.93XA Contusion of head, unspecified part of head, initial encounter COMPARISON: None FINDINGS: Trachea, mediastinum and heart size are unremarkable. The lungs show hyperaeration with chronic changes. There is slight atelectasis in the bases. No effusion or nodule or pneumothorax is noted. IMPRESSION: 1. Mild atelectasis versus less likely early infiltrates in the lung bases. 2. Mild chronic changes centrally. Workstation ID: [id number] Dictated by: RONNY RODRIGUEZ on SatJun 05, 2022 6:25:11 PM EST Transcribed by: RONNY RODRIGUEZ on SatJun 05, 2022 6:25:11 PM EST Finalized by: RONNY RODRIGUEZ on SatJun 05, 2022 6:25:[address] [facility] Comment on above: Order Comment: Injur y/Trauma or Illness?:Illness/Other How long have you had these symptoms (acute/chronic)?:Acute Reason for exam?:syncope History of cancer?:no Surgeries, chemotherapy, or radiation?:no Type of Exam?:Initial Additional signs and symptoms?:no Basophil percentageOrdered B y: Dr. Kent on 06-04-2022 Bilirubin [Mass/Vol] 0.50 mg/dL 0.20-1.00 [facility] Comment on above: For patients on eltr ombopag therapy, use of Dimension [place] TBIL is not recommended. Protein [Mass/Vol] 7.8 g/dL 6.4-8.2 [facility] Body fluid appearanceOrdered By: Dr. Kent on 06-04-2022 Appearance (Body fld) SL CLDY [facility] Body fluid color determinati onOrdered By: Dr. Kent on 06-04-2022 Color (Body fld) YELLOW [facility] Body fluid lactate dehydroge nase measurement (enzymatic activity/volume) by pyruvateOrdered By: Dr. Kent on 06-04-2022 LDH Pyruvate to lactate reaction (Body fld) [Catalytic activity/Vol] 136 Units/l Not Establ. [facility] Body fluid leukocytes count (number/volume)Ordered By: Dr. Kent on 06-04-2022 WBC (Body fld) [#/Vol] 7.217 10*3/uL [facility] WBC (Body fld) [#/Vol] 0.042 10*3/uL [facility] Body fluid lymphocytes/100 l eukocytesOrdered By: Dr. Kent on 06-04-2022 Lymphocytes/100 WBC (Body fld) 88 % [facility] Body fluid macrophage countO rdered By: Dr. Kent on 06-04-2022 Macrophages (Body fld) [#/Vol] 5 % [facility] Body fluid mesothelial cell percentageOrdered By: Dr. Kent on 06-04-2022 Mesothelial cells/100 WBC (Body fld) 6 % [facility] Body fluid protein measureme nt (mass/volume)Ordered By: Dr. Kent on 06-04-2022 Protein (Body fld) [Mass/Vol] 4.4 g/dL Not Establ. [facility] Body fluid segmented neutrop hils count (number/volume)Ordered By: Dr. Kent on 06-04-2022 Segmented neutrophils (Body fld) [#/Vol] 0 % [facility] Cytology report of Body flui d Cyto stainOrdered By: Dr. Kent on 06-04-2022 Cytology report Cyto stain Doc (Body fld) SEE PATHOLOGY REPORT [facility] Comment on above: Specimen submitted t o Anatomical Pathology Department for testing. Direct bilirubinOrdered By: Dr. Kent on 06-04-2022 Bilirubin.direct [Mass/Vol] 0.08 mg/dL 0.00-0.30 [facility] Erythrocytes [#/volume] in B john fluid by Automated countOrdered By: Dr. Kent on 06-04-2022 RBC Auto (Body fld) [#/Vol] 0.003 10^6/ul [facility] Gram stain for investigation of transfusion reactionOrdered By: Dr. Kent on 06-04-2022 Microscopic observation Gram stain Nom (Unsp spec) [facility] Laboratory - Chemistry and C hemistry - challengeOrdered By: Dr. Kent on 06-04-2022 ALP [Catalytic activity/Vol] 76 U/L 45-117 [facility] ALT [Catalytic activity/Vol] 27 U/L 16-61 [facility] Globulin (S) [Mass/Vol] 3.9 g/dL 2.2-4.[address] [facility] Mononuclear cells Auto (Body fld) [#/Vol]Ordered By: Dr. Kent on 06-04-2022 Mononuclear cells (Body fld) [#/Vol] 7.175 10*3/uL [facility] No Panel InformationOrdered By: Dr. Kent on 06-04-2022 Body Fluid Comment [address] [facility] Comment on above: .INTERPRETATION OF R ESULTS: Differentiation of transudate and exudate fluid: TRANSUDATE EXUDATE Color- Clear,straw colored Clear,turbid,bloody,purulent RBCs- Usually none to few Often present in high numbers WBCs- Usually none to few Often present in high numbers DIFF Few lymphocytes or Lymphocytes, neutrophils, andCount- mesothelial cells. polymorphonuclear cells . Body Fluid Mononuclear WBCs (%) 99.4 % [facility] Body Fluid Pathologist Comment Reviewed [facility] Comment on above: Previous reported re sult: May follow Edited by: YELENA on 06/05/22:1459Consistent with lympocytic effusion.Negative for malignant cells.Please also refer to cytology report [id number] Tinoco M.D. 06/05/22 AMENDED REPORT 06/05/22 1459 PATH COMM/BF previously reported as: May follow Body Fluid Polynuclear WBCs (%) 0.6 % [facility] No Panel Informationon 06-04 Body Fluid Pathologist Comment May follow [facility] Work Phone: Serum or plasma albumin mary urement (mass/volume)Ordered By: Dr. Kent on 06-04-2022 Albumin [Mass/Vol] 3.9 g/dL 3.2-5.0 [facility] Specimen source identificati on of body fluidOrdered By: Dr. Kent on 06-04-2022 Specimen source Nom (Body fld) THORACENTESIS [facility] Thin prep Papanicolaou smear with manual screeningOrdered By: Dr. Kent on 06-04-2022 Thin prep Papanicolaou smear with manual screening 1 % [facility] Thin prep Papanicolaou smear with manual screening 28 U/L 15-37 [facility] Comment on above: Slight Hemolysis, Re sult may be falsely increased. Thin prep Papanicolaou smear with manual screening 242 U/L 87-241 [facility] Comment on above: Slight Hemolysis, Re sult may be falsely increased. Total cell countOrdered By: Dr. Kent on 06-04-2022 Cells counted Molgen (Bld/Tiss) [#] 7.388 10^3/ul [facility] Comment on above: This is the Total Nu mber of Nucleated Cell Types in the Body Fluid. Absolute lymphocyte countOrd ered By: Dr. Kent on 06-03-2022 Lymphocytes Auto (Unsp spec) [#/Vol] 1.00 10*3/uL 0.83-4.51 [facility] Basophil percentageOrdered B y: Dr. Kent on 06-03-2022 Basophil percentage 0 SEEN /hpf 0-5 [facility] Basophils/100 WBC (Bld) 0.7 % 0-[address] [facility] Chloride [Moles/Vol] 105 mmol/L 98-107 [facility] Eosinophils/100 WBC (Bld) 4.5 % 0-5 [facility] Glucose [Mass/Vol] 110 mg/dL 74-106 [facility] Comment on above: Fasting Glucose resu lt from 100 to 125 mg/dL suggests IMPAIRED HOMEOSTASIS per A.D.A. criteria. Lactate [Moles/Vol] 1.3 mmol/L 0.4-2.0 [facility] Neutrophils (Bld) [#/Vol] 5.2 10*3/uL 2.0-7.7 [facility] Neutrophils/100 WBC (Bld) 70.8 % 47-70 [facility] Potassium [Moles/Vol] 4.3 mmol/L 3.5-5.1 [facility] Sodium [Moles/Vol] 139 mmol/L 136-145 [facility] WBC (Bld) [#/Vol] 7.3 10*3/uL 4.4-11.0 [facility] Bilirubin Test strip Ql (U)O rdered By: Dr. Kent on 06-03-2022 Bilirubin Ql (U) Negative Negative [facility] Blood erythrocytes count (nu mber/volume)Ordered By: Dr. Knet on 06-03-2022 RBC (Bld) [#/Vol] 5.06 10*6/uL 4.6-6.2 [facility] Blood hemoglobin measurement (mass/volume)Ordered By: Dr. Kent on 06-03-2022 Hemoglobin (Bld) [Mass/Vol] 15.5 g/dL 13.0-16.5 [facility] Blood lymphocytes/100 leukoc ytesOrdered By: Dr. Kent on 06-03-2022 Lymphocytes/100 WBC (Bld) 13.6 % 19-41 [facility] Blood monocytes/100 leukocyt esOrdered By: Dr. Kent on 06-03-2022 Monocytes/100 WBC (Bld) 10.1 % 0-[address] [facility] Blood platelet mean volumeOr dered By: Dr. Kent on 06-03-2022 Platelet mean volume (Bld) [Entitic vol] 9.6 fL 6.2-12.0 [facility] Determination of erythrocyte mean corpuscular volume (MCV)Ordered By: Dr. Kent on 06-03-2022 MCV (RBC) [Entitic vol] 92.3 fL 80-[address] [facility] Hematocrit Auto (Bld) [Volum e fraction]Ordered By: Dr. Kent on 06-03-2022 Hematocrit (Bld) [Volume fraction] 46.7 % 40-54 [facility] Influenza virus A and B and SARS-CoV-2 (COVID-19) Ag panel - Upper respiratory specimOrdered By: Dr. Kent on 06-03-2022 SARS-CoV-2 (COVID-19) RNA CRAIG+probe Ql (Resp) [facility] Ketones Test strip Ql (U)Ord ered By: Dr. Kent on 06-03-2022 Ketones Ql (U) Negative Negative [facility] Laboratory - Chemistry and C hemistry - challengeOrdered By: Dr. Kent on 06-03-2022 CO2 [Moles/Vol] 27.0 mmol/L 21.0-32.0 [facility] Natriuretic peptide B (Bld) [Mass/Vol] 38.5 pg/mL 0-100 [facility] Urea nitrogen/Creatinine [Mass ratio] 12.9 mg/mg 10-20 [facility] Laboratory - Hematology and Cell countsOrdered By: Dr. Kent on 06-03-2022 Erythrocyte distribution width (RBC) [Entitic vol] 45.1 fL 35.1-43.9 [facility] Erythrocyte distribution width (RBC) [Ratio] 13.3 % 11.6-14.6 [facility] Immature granulocytes/100 WBC (Bld) 0.300 % 0.0-0.9 [facility] Comment on above: IG% - Immature Granu locytes (promyelocytes, myelocytes and metamyelocytes) > 1% indicates that a LEFT SHIFT is Present. MCH (RBC) [Entitic mass] 30.6 pg 27.0-32.0 [facility] Nucleated RBC/100 WBC (Bld) [Ratio] 0 % 0-5 [facility] MCHC Auto (RBC) [Mass/Vol]Or dered By: Dr. Kent on 06-03-2022 MCHC (RBC) [Mass/Vol] 33.2 g/dL 32-36 [facility] Mucus LM Ql (Urine sed)Order ed By: Dr. Kent on 06-03-2022 Mucus Ql (Urine sed) 0 SEEN /hpf [facility] Nitrite Test strip Ql (U)Ord ered By: Dr. Kent on 06-03-2022 Nitrite Ql (U) Negative Negative [facility] No Panel InformationOrdered By: Dr. Kent on 06-03-2022 Estimated Creatinine Clearance Calc 121.63 ml/min [facility] Estimated GFR (MDRD) Amer 148 mL/min >60 [facility] Comment on above: GFR Calc Estimated GFR (MDRD) Non-Af Amer 122 mL/min >60 [facility] Comment on above: Non- GFR Calc Troponin I High Sensitivity < 3 pg/mL 3.0-78.0 [facility] Comment on above: Please Note: New Keshia t Units and Gender Specific Reference Ranges. For more information see Policy Stat Procedure Gardiner High Sensitivity Troponin (TNIH) and attachments. Platelets bldOrdered By: Dr. Kent on 06-03-2022 Platelets (Bld) [#/Vol] 251 10*3/uL 150-450 [facility] Protein Test strip Ql (U)Ord ered By: Dr. Kent on 06-03-2022 Protein Ql (U) 15 mg/dl Negative [facility] Serum or plasma calcium mary urement (mass/volume)Ordered By: Dr. Kent on 06-03-2022 Calcium [Mass/Vol] 9.2 mg/dL 8.5-10.1 [facility] Serum or plasma creatinine m easurement (mass/volume)Ordered By: Dr. Kent on 06-03-2022 Creatinine [Mass/Vol] 0.70 mg/dL 0.70-1.30 [facility] Comment on above: The validity of the calculated GFR & GFRAA in patients over 70 years has not been determined. Clinical correlation is essential. Serum or plasma urea nitroge n measurement (mass/volume)Ordered By: Dr. Kent on 06-03-2022 Urea nitrogen [Mass/Vol] 9 mg/dL 7-18 [facility] Squamous epithelial cells de tection in urine sediment by light microscopyOrdered By: Dr. Kent on 06-03-2022 Epithelial cells.squamous LM Ql (Urine sed) 0 SEEN /hpf 0-5 [facility] Thin prep Papanicolaou smear with manual screeningOrdered By: Dr. Kent on 06-03-2022 Thin prep Papanicolaou smear with manual screening 7 5-15 [facility] Urine blood detectionOrdered By: Dr. Kent on 06-03-2022 RBC Ql (U) Negative Negative [facility] RBC Ql (U) 0 SEEN /hpf 0-5 [facility] Urine clarityOrdered By: Dr. Kent on 06-03-2022 Clarity (U) Clear Clear [facility] Urine color determinationOrd ered By: Dr. Kent on 06-03-2022 Color (U) Yellow Yellow [facility] Urine glucose detectionOrder ed By: Dr. Kent on 06-03-2022 Glucose Ql (U) Normal mg/dl Normal [facility] Urine leukocyte esterase det ection by dipstickOrdered By: Dr. Kent on 06-03-2022 Leukocyte esterase Test strip Ql (U) Negative Negative [facility] Urine pHOrdered By: Dr. Cathy castañeda on 06-03-2022 pH (U) 7.0 [pH] 5.0 - 8.0 [facility] Urine sediment bacteria coun t by microscopy (number/high power field)Ordered By: Dr. Kent on 06-03-2022 Bacteria LM.HPF (Urine sed) [#/Area] 0 /[HPF] None Seen [facility] Urine specific gravity measu rementOrdered By: Dr. Kent on 06-03-2022 Specific gravity (U) [Rel density] 1.010 1.002-1.03 0 [facility] Urobilinogen Auto test strip Ql (U)Ordered By: Dr. Kent on 06-03-2022 Urobilinogen Ql (U) Normal mg/dl Normal [facility] Absolute lymphocyte counton 03-22-2022 Lymphocytes Auto (Unsp spec) [#/Vol] 1.49 10*3/uL 0.83-4.51 [facility] Work Phone: Basophil percentageon 2021 Basophils/100 WBC (Bld) 0.9 % 0-[address] [facility] Work Phone: Bilirubin [Mass/Vol] 0.50 mg/dL 0.20-1.00 [facility] Work Phone: Comment on above: For patients on eltr ombopag therapy, use of Dimension Gardiner TBIL is not recommended. Chloride [Moles/Vol] 106 mmol/L 98-107 [facility] Work Phone: Eosinophils/100 WBC (Bld) 6.5 % 0-5 [facility] Work Phone: Glucose [Mass/Vol] 110 mg/dL 74-106 [facility] Work Phone: Comment on above: Fasting Glucose resu lt from 100 to 125 mg/dL suggests IMPAIRED HOMEOSTASIS per A.D.A. criteria. Neutrophils (Bld) [#/Vol] 3.1 10*3/uL 2.0-7.7 [facility] Work Phone: Neutrophils/100 WBC (Bld) 56.6 % 47-70 [facility] Work Phone: Potassium [Moles/Vol] 3.9 mmol/L 3.5-5.1 [facility] Work Phone: Protein [Mass/Vol] 7.5 g/dL 6.4-8.2 [facility] Work Phone: Sodium [Moles/Vol] 138 mmol/L 136-145 [facility] Work Phone: WBC (Bld) [#/Vol] 5.5 10*3/uL 4.4-11.0 [facility] Work Phone: Blood erythrocytes count (nu mber/volume)on 03-22-2022 RBC (Bld) [#/Vol] 4.68 10*6/uL 4.6-6.2 [facility] Work Phone: Blood hemoglobin measurement (mass/volume)on 03-22-2022 Hemoglobin (Bld) [Mass/Vol] 14.4 g/dL 13.0-16.5 [facility] Work Phone: Blood lymphocytes/100 leukoc yteson 03-22-2022 Lymphocytes/100 WBC (Bld) 27.1 % 19-41 [facility] Work Phone: Blood monocytes/100 leukocyt eson 03-22-2022 Monocytes/100 WBC (Bld) 8.7 % 0-[address] [facility] Work Phone: Blood platelet mean volumeon 03-22-2022 Platelet mean volume (Bld) [Entitic vol] 9.3 fL 6.2-12.0 [facility] Work Phone: Determination of erythrocyte mean corpuscular volume (MCV)on 03-22-2022 MCV (RBC) [Entitic vol] 93.2 fL 80-[address] [facility] Work Phone: Hematocrit Auto (Bld) [Volum e fraction]on 03-22-2022 Hematocrit (Bld) [Volume fraction] 43.6 % 40-54 [facility] Work Phone: Laboratory - Chemistry and C hemistry - challengeon 03-22-2022 ALP [Catalytic activity/Vol] 63 U/L 45-117 [facility] Work Phone: ALT [Catalytic activity/Vol] 36 U/L 16-61 [facility] Work Phone: CO2 [Moles/Vol] 26.0 mmol/L 21.0-32.0 [facility] Work Phone: Globulin (S) [Mass/Vol] 3.7 g/dL 2.2-4.[address] [facility] Work Phone: Urea nitrogen/Creatinine [Mass ratio] 13.3 mg/mg 10-20 [facility] Work Phone: Laboratory - Hematology and Cell countson 03-22-2022 Erythrocyte distribution width (RBC) [Entitic vol] 46.8 fL 35.1-43.9 [facility] Work Phone: Erythrocyte distribution width (RBC) [Ratio] 13.7 % 11.6-14.6 [facility] Work Phone: Immature granulocytes/100 WBC (Bld) 0.200 % 0.0-0.9 [facility] Work Phone: Comment on above: IG% - Immature Granu locytes (promyelocytes, myelocytes and metamyelocytes) > 1% indicates that a LEFT SHIFT is Present. MCH (RBC) [Entitic mass] 30.8 pg 27.0-32.0 [facility] Work Phone: Nucleated RBC/100 WBC (Bld) [Ratio] 0 % 0-5 [facility] Work Phone: MCHC Auto (RBC) [Mass/Vol]on 03-22-2022 MCHC (RBC) [Mass/Vol] 33.0 g/dL 32-36 [facility] Work Phone: No Panel Informationon 03-22 Estimated Creatinine Clearance Calc 102.58 ml/min [facility] Work Phone: Estimated GFR (MDRD) Amer 121 mL/min >60 [facility] Work Phone: Comment on above: GFR Calc Estimated GFR (MDRD) Non-Af Amer 100 mL/min >60 [facility] Work Phone: Comment on above: Non- GFR Calc Miscellaneous Test See comment [facility] Work Phone: Comment on above: TEST RESULT LIMITSBCR-ABL1, CML/ALL, PCR, [id number] (b2a2) transcript 0.0561 %e14a2 (b3a2) transcript % <0.0032 %e1a2 transcript % <0.0032 %Interpretation: PositivePOSITIVE for the BCR-ABL1 e13a2 (b2a2, p210) fusion transcript.Director Arlene Mckeon, PhD, FACMGDirector, Molecular OncologyFarren Memorial Hospital Center for Molecular Biology and PathologyGen[place], [place] [phone] assay can detect three different types of BCR-ABL1 fusion transcripts associated with CML, ALL, and AML: e13a2 (previously b2a2) and e14a2 (previously b3a2) (major breakpoint, p210), as well as e1a2 (minor breakpoint, p190). The e13a2 and e14a2 transcript values are titrated to the current International Scale (IS). The standardized baseline is 100% BCR-ABL1 (IS) and major molecular response (MMR) is equivalent to 0.1% BCR-ABL1 (IS) correspondingto a 3-log reduction. Results should be correlated with appropriate clinical and laboratory information as indicated.Methodology Total RNA is isolated from the sample and subject to a real-time, reverse transcriptase polymerase chain reaction (RT-PCR). The PCR primers and probes are specific for BCR-ABL1 e13a2, e14a2 and e1a2 fusion transcripts. The ABL1 transcript is amplified as the control for cDNA quantity and quality. Serial dilutions of a validated positive control RNA with known t(9;22) BCR-ABL1 are used as reference for quantification of BCR-ABL1 relative to ABL1. The numeric BCR-ABL1 level is reported as % BCR-ABL1/ABL1 and thedetection sensitivity is 4.5 log below the standard baseline(<0.0032%).This test was developed and its performance characteristics determined by [facility]. It has not been cleared or approved by the Food and Drug Administration. TESTING PERFORMED AT [facility]. ORIGINAL REPORT ON FILE IN LAB CONTAINS ADDITIONAL TEST SITE INFORMATION. Platelets bldon 03-22-2022 Platelets (Bld) [#/Vol] 247 10*3/uL 150-450 [facility] Work Phone: Serum or plasma albumin mary urement (mass/volume)on 03-22-2022 Albumin [Mass/Vol] 3.8 g/dL 3.2-5.0 [facility] Work Phone: Serum or plasma albumin/glob ulin mass ratioon 03-22-2022 Albumin/Globulin [Mass ratio] 1.0 {ratio} 0.9-2.4 [facility] Work Phone: Serum or plasma calcium mary urement (mass/volume)on 03-22-2022 Calcium [Mass/Vol] 8.5 mg/dL 8.5-10.1 [facility] Work Phone: Serum or plasma creatinine m easurement (mass/volume)on 03-22-2022 Creatinine [Mass/Vol] 0.83 mg/dL 0.70-1.30 [facility] Work Phone: Comment on above: The validity of the calculated GFR & GFRAA in patients over 70 years has not been determined. Clinical correlation is essential. Serum or plasma urea nitroge n measurement (mass/volume)on 03-22-2022 Urea nitrogen [Mass/Vol] 11 mg/dL 7-18 [facility] Work Phone: Thin prep Papanicolaou smear with manual screeningon 03-22-2022 Thin prep Papanicolaou smear with manual screening 24 U/L 15-37 [facility] Work Phone: Thin prep Papanicolaou smear with manual screening 6 5-15 [facility] Work Phone: Blood Glucose , Office ([phone])Ordered By: Eufemia Patel on 03-05-2022 Glucose Glucometer (BldC) [Moles/Vol] 136 1 Normal [facility] Work Phone: CBC W/AUTO DIFF WBC ([id number])O rdered By: Calliope Player on 03-05-2022 Basophils (Bld) [#/Vol] 0.1 10*3/uL Normal 0.0-0.2 [facility] Work Phone: Comment on above: PATIENT WAS FASTINGP ERFORMED BY: CB [facility] Vzypec[address] [place] [id number] Basophils/100 WBC (Bld) 1 % Normal [facility]; [facility] Work Phone: Comment on above: PATIENT WAS FASTINGP ERFORMED BY: CB [facility] Vhzbuc59[address]Dublin [place] [id number] Eosinophils (Bld) [#/Vol] 0.4 10*3/uL Normal 0.0-0.4 [facility] Work Phone: Comment on above: PATIENT WAS FASTINGP ERFORMED BY: CB [facility] Tklsvz101[address]Dublin [place] [id number] Eosinophils/100 WBC (Bld) 6 % Normal [facility] Work Phone: Comment on above: PATIENT WAS FASTINGP ERFORMED BY: CB [facility] Ckhboo7[address]Dublin [place] [id number] Erythrocyte distribution width (RBC) [Ratio] 13.3 % Normal 11.6-15.4 [facility] Work Phone: Comment on above: PATIENT WAS FASTINGP ERFORMED BY: CB [facility] Rpakle[address] [place] [id number] Hematocrit (Bld) [Volume fraction] 43.6 % Normal 37.5-51.0 [facility] Work Phone: Comment on above: PATIENT WAS FASTINGP ERFORMED BY: CB [facility] Eqvaga55[address] [place] [id number] Hemoglobin (Bld) [Mass/Vol] 14.9 g/dL Normal 13.0-17.7 [facility] Work Phone: Comment on above: PATIENT WAS FASTINGP ERFORMED BY: CB [facility] Dyqtfy64[address]Dublin [place] [id number] Immature granulocytes (Bld) [#/Vol] 0.0 10*3/uL Normal 0.0-0.1 [facility] Work Phone: Comment on above: PATIENT WAS FASTINGP ERFORMED BY: TONYA Labjuliana DavidsonNjfpfh[address] [facility]blin [place] [id number] Immature granulocytes/100 WBC (Bld) 0 % Normal [facility] Work Phone: Comment on above: PATIENT WAS FASTINGP ERFORMED BY: [facility] Ydkmlg[address] [facility] [place] [id number] Lymphocytes (Bld) [#/Vol] 1.5 10*3/uL Normal 0.7-3.1 [facility] Work Phone: Comment on above: PATIENT WAS FASTINGP ERFORMED BY: LabHenry [facility] [facility] [id number] Lymphocytes/100 WBC (Bld) 24 % Normal [facility]; [facility] Work Phone: Comment on above: PATIENT WAS FASTINGP ERFORMED BY: LabHenry [facility] [facility] [id number] MCH (RBC) [Entitic mass] 30.8 pg Normal 26.6-33.0 [facility] Work Phone: Comment on above: PATIENT WAS FASTINGP ERFORMED BY: LabHenry [facility] [facility] [id number] MCHC (RBC) [Mass/Vol] 34.2 g/dL Normal 31.5-35.7 [facility] prehensive [facility]; [facility] Work Phone: Comment on above: PATIENT WAS FASTINGP ERFORMED BY: [facility] Xhmprk[address] [facility]in [place] [id number] MCV (RBC) [Entitic vol] 90 fL Normal 79-97 [facility] Work Phone: Comment on above: PATIENT WAS FASTINGP ERFORMED BY: [facility] [address]puylo[address] [facility] [place] [id number] Monocytes (Bld) [#/Vol] 0.6 10*3/uL Normal 0.1-0.9 [facility] Work Phone: Comment on above: PATIENT WAS FASTINGP ERFORMED BY: TONYA Richi Torres[address] [place] [id number] Monocytes/100 WBC (Bld) 9 % Normal [facility] Work Phone: Comment on above: PATIENT WAS FASTINGP ERFORMED BY: TONYA [facility] Kjirtm29[address]Dublin [place] [id number] Neutrophils (Bld) [#/Vol] 3.8 10*3/uL Normal 1.4-7.0 [facility]; [facility] Work Phone: Comment on above: PATIENT WAS FASTINGP ERFORMED BY: TONYA Davidsonlin[address]Dublin [place] [id number] Neutrophils/100 WBC (Bld) 60 % Normal [facility]; [facility] Work Phone: Comment on above: PATIENT WAS FASTINGP ERFORMED BY: TONYA Labcoaida Ovprio[address] [place] [id number] Platelets (Bld) [#/Vol] 250 10*3/uL Normal 150-450 [facility]; [facility] Work Phone: Comment on above: PATIENT WAS FASTINGP ERFORMED BY: TONYA [facility] Ecopjt[address]Dublin [place] [id number] RBC (Bld) [#/Vol] 4.84 10*6/uL Normal 4.14-5.80 Compr e[facility]; [facility] Work Phone: Comment on above: PATIENT WAS FASTINGP ERFORMED BY: TONYA [facility] Otheia[address] [place] [id number] WBC (Bld) [#/Vol] 6.4 10*3/uL Normal 3.4-10.8 [facility]; [facility] Work Phone: Comment on above: PATIENT WAS FASTINGP ERFORMED BY: CB [facility] Ssbthn[address] [place] [id number] HgA1C , Office ([id number])Ordere d By: Eufemia Amanda on 03-05-2022 HbA1c (Bld) [Mass fraction] 6.3 % Normal 4.6 - 7.1 [facility] Work Phone: LIPID PANEL ([id number])Ordered B y: Calliope Player on 03-05-2022 Cholesterol [Mass/Vol] 170 mg/dL Normal 100-199 [facility]; [facility] Work Phone: Comment on above: PATIENT WAS FASTINGP ERFORMED BY: TONYA [facility] Vernns[address] [place] [id number] Cholesterol in HDL [Mass/Vol] 45 mg/dL Normal [facility]; [facility] Work Phone: Comment on above: PATIENT WAS FASTINGP ERFORMED BY: TONYA [facility] Wfolis[address] [place] [id number] Triglyceride [Mass/Vol] 250 mg/dL Abnormal 0-149 [facility]; [facility] Work Phone: Comment on above: PATIENT WAS FASTINGP ERFORMED BY: CB [facility] Nkbxny[address] [place] [id number] LIPID PANEL ([id number]) 41 mg/dL Abnormal 5-40 Compr [facility]; [facility] Work Phone: Comment on above: PATIENT WAS FASTINGP ERFORMED BY: CB [facility] Lwcnsj[address] [place] [id number] LIPID PANEL ([id number]) 84 mg/dL Normal 0-99 Compr e[facility]; [facility] Work Phone: Comment on above: PATIENT WAS FASTINGP ERFORMED BY: CB [facility] Iheiew[address] [place] [id number] LIPID PANEL (78992) 1.9 {ratio} Normal 0.0-3.6 Comp rehens[facility]; [facility] Work Phone: Comment on above: LDL/HDL Ratio Men Wo men 1/2 Avg.Risk 1.0 1.5 Avg.Risk 3.6 3.2 2X Avg.Risk 6.2 5.0 3X Avg.Risk 8.0 6.1 PATIENT WAS FASTINGP ERFORMED BY: [facility] Sqmypq75[address] [place] [id number] METABOLIC PANEL, COMPREHENSI VE ([id number])Ordered By: Calliope Player on 03-05-2022 Albumin [Mass/Vol] 4.6 g/dL Normal 3.8-4.8 [facility]; [facility] Work Phone: Comment on above: PATIENT WAS FASTINGP ERFORMED BY: [facility] Vmaaol[address] [place] [id number] Albumin/Globulin [Mass ratio] 1.9 {ratio} Normal 1.2-2.2 [facility]; [facility] Work Phone: Comment on above: PATIENT WAS FASTINGP ERFORMED BY: [facility] Gazxuh4598 [address]aney RoadDublin [place] [id number] ALP [Catalytic activity/Vol] 68 U/L Normal 44-121 [facility]; [facility] Work Phone: Comment on above: PATIENT WAS FASTINGP ERFORMED BY: [facility] Gdcftx8893 [address] RoadDublin [place] [id number] ALT [Catalytic activity/Vol] 22 U/L Normal 0-44 [facility]; [facility] Work Phone: Comment on above: PATIENT WAS FASTINGP ERFORMED BY: [facility] Jyhycl6589 [address] RoadDublin [place] [id number] AST [Catalytic activity/Vol] 21 U/L Normal 0-40 [facility]; [facility] Work Phone: Comment on above: PATIENT WAS FASTINGP ERFORMED BY: [facility] Zpkdmz0923 [address] RoadDublin [place] [id number] Bilirubin [Mass/Vol] 0.3 mg/dL Normal 0.0-1.2 [facility]; [facility] Work Phone: Comment on above: PATIENT WAS FASTINGP ERFORMED BY: TONYA [facility] Vqrwxc1941 [address] RoadDublin [place] [id number] Calcium [Mass/Vol] 9.4 mg/dL Normal 8.6-10.2 Compre hensive Internal Medicine; [facility] Work Phone: Comment on above: PATIENT WAS FASTINGP ERFORMED BY: CB [facility] Rmlsin0104 [address] Roadblin [place] [id number] Chloride [Moles/Vol] 102 mmol/L Normal 96-106 Comp rehensive Internal Medicine; [facility] Work Phone: Comment on above: PATIENT WAS FASTINGP ERFORMED BY: [facility] Kapeav2313 [address] RoadDublIreland Army Community Hospital [id number] CO2 [Moles/Vol] 24 mmol/L Normal 20-29 Compre[facility]; [facility] Work Phone: Comment on above: PATIENT WAS FASTINGP ERFORMED BY: TONYA [facility] Foyzvv9527 [address] RoadUNC Health Chatham [id number] Creatinine [Mass/Vol] 0.79 mg/dL Normal 0.76-1.27 Com prehensive Internal Medicine; [facility] Work Phone: Comment on above: PATIENT WAS FASTINGP ERFORMED BY: TONYA [facility] Usmusz3333 [address] [facility] [id number] GFR/1.73 sq M.predicted among non-blacks MDRD (S/P/Bld) [Vol rate/Area] 101 mL/min/{1.73_m2} Normal Comprehensi ve Internal Medicine; [facility] Work Phone: Comment on above: PATIENT WAS FASTINGP ERFORMED BY: TONYA [facility] Dmkhkd6253 H[address] Roadblin [place] [id number] Globulin (S) [Mass/Vol] 2.4 g/dL Normal 1.5-4.5 C omprehensive Internal Medicine; [facility] Work Phone: Comment on above: PATIENT WAS FASTINGP ERFORMED BY: [facility] Rzkixd6459 [address] [facility] [place] [id number] Glucose [Mass/Vol] 98 mg/dL Normal 65-99 [facility] Internal Medicine; [facility] Work Phone: Comment on above: PATIENT WAS FASTINGP ERFORMED BY: TNOYA Labjuliana DavidsonUkgoog0223 [address] Roadblin [place] [id number] Potassium [Moles/Vol] 4.4 mmol/L Normal 3.5-5.2 [facility]; [facility] Work Phone: Comment on above: PATIENT WAS FASTINGP ERFORMED BY: TONYA [facility] Ibuubx6863 [address] Roadblin [place] [id number] Protein [Mass/Vol] 7.0 g/dL Normal 6.0-8.5 [facility] Internal Medicine; [facility] Work Phone: Comment on above: PATIENT WAS FASTINGP ERFORMED BY: TONYA [facility] Qcdlvl4656 [address] RoadAtrium Health Cabarrusin [place] [id number] Sodium [Moles/Vol] 138 mmol/L Normal 134-144 [facility] Internal Medicine; [facility] Work Phone: Comment on above: PATIENT WAS FASTINGP ERFORMED BY: TONYA Labcoaida Btwmhg[address] [facility] Hospitalblin [place] [id number] Urea nitrogen [Mass/Vol] 12 mg/dL Normal 8-27 [facility]; [facility] Work Phone: Comment on above: PATIENT WAS FASTINGP ERFORMED BY: [facility] Qelple8277 [address] [facility]in [place] [id number] Urea nitrogen/Creatinine [Mass ratio] 15 mg/mg Normal 10-24 [facility]; [facility] Work Phone: Comment on above: PATIENT WAS FASTINGP ERFORMED BY: TONYA [facility] J[address]leau[address] [facility] Hospitalblin [place] [id number] METABOLIC PANEL, COMPREHENSIVE ([id number]) 101 mL/min/1.73 Normal Comprehens arianna Internal Medicine; [facility] Work Phone: MICROALBUMINOrdered By: Syst em Horse Rancher on 03-05-2022 Albumin DL <= 20 mg/L (U) [Mass/Vol] 14.4 ug/mL Normal [facility]; [facility] Work Phone: Comment on above: PATIENT WAS FASTINGP ERFORMED BY: TONYA Labcoaida DavidsonKvskwt6073 H[address] RoadDublin [place] [id number] Albumin/Creatinine (U) [Mass ratio] 14 {mg/g_creat} Normal 0-29 [facility]; [facility] Work Phone: Comment on above: Normal: 0 - 29 Moder ately increased: 30 - 300 Severely increased: >300 PATIENT WAS FASTINGP ERFORMED BY: TONYA [facility] Uwzbnq1676 [address] RoadDublin [place] [id number] Creatinine (U) [Mass/Vol] 104.7 mg/dL Normal [facility]; [facility] Work Phone: Comment on above: PATIENT WAS FASTINGP ERFORMED BY: TONYA [facility] Kfzalk0170 [address] RoadDublin [place] [id number] TSH ([id number])Ordered By: Novaliqe m Horse Rancher on 03-05-2022 TSH Qn 3.300 {uIU/mL} Normal 0.450-4.50 0 [facility]; [facility] Work Phone: Comment on above: PATIENT WAS FASTINGP ERFORMED BY: TONYA [facility] Lawapy4465 [address] RoadDublin [place] [id number] URINALYSIS, W/ MICRO ([id number]) Ordered By: Calliope Player on 03-05-2022 Appearance (U) Clear Normal Comprehens arianna Internal Medicine; [facility] Work Phone: Comment on above: PATIENT WAS FASTINGP ERFORMED BY: TONYA [facility] Afasgo8420 [address] RoadDublin [place] [id number] Bilirubin Ql (U) Negative Normal Comprehe nsive Internal Medicine; [facility] Work Phone: Comment on above: PATIENT WAS FASTINGP ERFORMED BY: TONYA [facility] Fsfxuf3025 [address] RoadDublin [place] [id number] Color (U) Yellow Normal [facility]; [facility] Work Phone: Comment on above: PATIENT WAS FASTINGP ERFORMED BY: TONYA [facility] Zwhbmb6188 [address] RoadDublin [place] [id number] Glucose Ql (U) Negative Normal Comprehens arianna Internal Medicine; [facility] Work Phone: Comment on above: PATIENT WAS FASTINGP ERFORMED BY: TONYA [facility] Nozkit0220 [address] RoadDublin [place] [id number] Hemoglobin Ql (U) Negative Normal Compreh ensive Internal Medicine; [facility] Work Phone: Comment on above: PATIENT WAS FASTINGP ERFORMED BY: TONYA [facility] Gfnmgf7686 [address] RoadDublin [place] [id number] Ketones Ql (U) Negative Normal Comprehens arianna Internal Medicine; [facility] Work Phone: Comment on above: PATIENT WAS FASTINGP ERFORMED BY: TONYA [facility] Vxeyyo5353 [address] RoadDublin [place] [id number] Leukocyte esterase Test strip Ql (U) Negative Normal [facility]; [facility] Work Phone: Comment on above: PATIENT WAS FASTINGP ERFORMED BY: TONYA [facility] Ofckfg4450 [address] RoadDublin [place] [id number] Microscopic observation LM Nom (Urine sed) MICRON Normal [facility]; [facility] Work Phone: Comment on above: Microscopic follows if indicated. PATIENT WAS FASTINGP ERFORMED BY: TONYA [facility] Krilty4771 [address] RoadDublin [place] [id number] Microscopic observation LM Nom (Urine sed) See below: Normal [facility]; [facility] Work Phone: Comment on above: Microscopic was lynnette cated and was performed. PATIENT WAS FASTINGP ERFORMED BY: CB [facility] Qamwft0889 [address] RoadDublin [place] [id number] Nitrite Ql (U) Negative Normal Comprehens arianna Internal Medicine; [facility] Work Phone: Comment on above: PATIENT WAS FASTINGP ERFORMED BY: TONYA [facility] Mvoybr8530 [address] RoadDublin [place] [id number] pH (U) 7.0 [pH] Normal 5.0-7.5 [facility]; [facility] Work Phone: Comment on above: PATIENT WAS FASTINGP ERFORMED BY: TONYA Labjuliana Torres6370 [facility] CreationGood [facility] Hospital [id number] Protein Ql (U) Negative Normal Comprehens arianna Internal Medicine; [facility] Work Phone: Comment on above: PATIENT WAS FASTINGP ERFORMED BY: TONYA Labjoya Wxcevv25[address] MergeLocalUNC Health [facility] [id number] Specific gravity (U) [Rel density] 1.019 1 Normal 1.005-1.03 0 [facility]; [facility] Work Phone: Comment on above: PATIENT WAS FASTINGP ERFORMED BY: TONYA Avniaida Mqckkx7[address] NameMediaGood Hope Hospital [id number] Urobilinogen (U) [Mass/Vol] 0.2 mg/dL Normal 0.2-1.0 [facility]; [facility] Work Phone: Comment on above: PATIENT WAS FASTINGP ERFORMED BY: TONYA Davidsonlin[address] MergeLocalUNC Health Chatham [id number] Blood Glucose , Office (2096 2)Ordered By: Eufemia Patel on 10-30-2021 Glucose Glucometer (BldC) [Moles/Vol] 107 1 Normal [facility]; [facility] Work Phone: HgA1C , Office ([phone])Ordere d By: Eufemia Patel on 10-30-2021 HbA1c (Bld) [Mass fraction] 6.0 % Normal 4.6 - 7.1 [facility]; [facility] Work Phone: CBC W/AUTO DIFF WBC ([id number])O rdered By: Calliope Player on 06-26-2021 Basophils (Bld) [#/Vol] 0.1 10*3/uL Normal 0.0-0.2 [facility]; [facility] Work Phone: Comment on above: PATIENT WAS FASTINGP ERFORMED BY: TONYA LabPadlet Qlmjad[address] MergeLocalDublin [place] [id number] Basophils/100 WBC (Bld) 1 % Normal C omprehensive Internal Medicine; [facility] Work Phone: Comment on above: PATIENT WAS FASTINGP ERFORMED BY: TONYA Kenyajuliana Oinjfh1777 [address] RoadDublin [place] [id number] Eosinophils (Bld) [#/Vol] 0.3 10*3/uL Normal 0.0-0.4 [facility]; [facility] Work Phone: Comment on above: PATIENT WAS FASTINGP ERFORMED BY: TONYA Labjuliana DavidsonDiqrml2269 [address] RoadDublin [place] [id number] Eosinophils/100 WBC (Bld) 6 % Normal [facility]; [facility] Work Phone: Comment on above: PATIENT WAS FASTINGP ERFORMED BY: TONYA Kenyajuliana DavidsonLmkbbn7257 Haney RoadAtrium Health [place]usin [place] [id number] Erythrocyte distribution width (RBC) [Ratio] 12.8 % Normal 11.6-15.4 [facility]; [facility] Work Phone: Comment on above: PATIENT WAS FASTINGP ERFORMED BY: TONYA Kenyajuliana DavidsonQwulxq7482 [address] Roadblin [place] [id number] Hematocrit (Bld) [Volume fraction] 42.6 % Normal 37.5-51.0 [facility]; [facility] Work Phone: Comment on above: PATIENT WAS FASTINGP ERFORMED BY: TONYA Kenyajoya Pfhupl8116 [address] Roadblin [place] [id number] Hemoglobin (Bld) [Mass/Vol] 14.8 g/dL Normal 13.0-17.7 [facility]; [facility] Work Phone: Comment on above: PATIENT WAS FASTINGP ERFORMED BY: TONYA Labjoya Qzksxx1164 [address] RoadDublin [place] [id number] Immature granulocytes (Bld) [#/Vol] 0.0 10*3/uL Normal 0.0-0.1 [facility]; [facility] Work Phone: Comment on above: PATIENT WAS FASTINGP ERFORMED BY: [facility]6370 [facility] [id number] Immature granulocytes/100 WBC (Bld) 0 % Normal [facility]; [facility] Work Phone: Comment on above: PATIENT WAS FASTINGP ERFORMED BY: [facility] Rghqik6093 [facility] [id number] Lymphocytes (Bld) [#/Vol] 1.9 10*3/uL Normal 0.7-3.1 [facility]; [facility] Work Phone: Comment on above: PATIENT WAS FASTINGP ERFORMED BY: [place] [id number] [facility] [id number] Lymphocytes/100 WBC (Bld) 32 % Normal [facility]; [facility] Work Phone: Comment on above: PATIENT WAS FASTINGP ERFORMED BY: [address] [id number] MCH (RBC) [Entitic mass] 31.2 pg Normal 26.6-33.0 [facility]; [facility] Work Phone: Comment on above: PATIENT WAS FASTINGP ERFORMED BY: [place] [id number] [facility] [id number] MCHC (RBC) [Mass/Vol] 34.7 g/dL Normal 31.5-35.7 [facility]cher[facility] Internal [facility]; [facility] Work Phone: Comment on above: PATIENT WAS FASTINGP ERFORMED BY: [place] [id number] [facility] [id number] MCV (RBC) [Entitic vol] 90 fL Normal 79-97 C omprehcherrington hospital Internal Medicine; [facility] Work Phone: Comment on above: PATIENT WAS FASTINGP ERFORMED BY: [facility]6370 [facility] [id number] Monocytes (Bld) [#/Vol] 0.6 10*3/uL Normal 0.1-0.9 [facility]; [facility] Work Phone: Comment on above: PATIENT WAS FASTINGP ERFORMED BY: CB [facility] Sqtxns5032 [address] RoadDublin [place] [id number] Monocytes/100 WBC (Bld) 10 % Normal C omprehensive Internal Medicine; [facility] Work Phone: Comment on above: PATIENT WAS FASTINGP ERFORMED BY: CB [facility] Fbdkct7342 [address] RoadDublin [place] [id number] Neutrophils (Bld) [#/Vol] 3.0 10*3/uL Normal 1.4-7.0 [facility]; [facility] Work Phone: Comment on above: PATIENT WAS FASTINGP ERFORMED BY: CB [facility] Stpkmp3187 [address] RoadDublin [place] [id number] Neutrophils/100 WBC (Bld) 51 % Normal [facility]; [facility] Work Phone: Comment on above: PATIENT WAS FASTINGP ERFORMED BY: CB [facility] Nlhmgm6423 [address] RoadDublin [place] [id number] Platelets (Bld) [#/Vol] 247 10*3/uL Normal 150-450 [facility]; [facility] Work Phone: Comment on above: PATIENT WAS FASTINGP ERFORMED BY: CB [facility] Tndyey3232 [address] RoadDublin [place] [id number] RBC (Bld) [#/Vol] 4.74 10*6/uL Normal 4.14-5.80 Compr ensive Internal Medicine; [facility] Work Phone: Comment on above: PATIENT WAS FASTINGP ERFORMED BY: CB [facility] Dgpfri9094 [address] RoadDublin [place] [id number] WBC (Bld) [#/Vol] 5.8 10*3/uL Normal 3.4-10.8 Compre [facility] Internal Medicine; [facility] Work Phone: Comment on above: PATIENT WAS FASTINGP ERFORMED BY: CB [facility] Umnril9540 [address] RoadDublin [place] [id number] HGB A1C ([id number])Ordered By: Pedro Luis ystem Horse Rancher on 06-26-2021 HbA1c (Bld) [Mass fraction] 6.2 % Abnormal 4.8-5.6 [facility]; [facility] Work Phone: Comment on above: . Prediabetes: 5.7 - 6.4 Diabetes: >6.4 Glycemic control for adults with diabetes: <7.0 PATIENT WAS FASTINGP ERFORMED BY: TONYA [facility] Uywkob7537 [address] RoadDublin [place] [id number] LIPID PANEL ([id number])Ordered B y: Calliope Player on 06-26-2021 Cholesterol [Mass/Vol] 147 mg/dL Normal 100-199 [facility] medicineensive [facility]; [facility] Work Phone: Comment on above: PATIENT WAS FASTINGP ERFORMED BY: TONYA [facility] Sewrgx1502 [address] RoadDublin [place] [id number] Cholesterol in HDL [Mass/Vol] 44 mg/dL Normal [facility]; [facility] Work Phone: Comment on above: PATIENT WAS FASTINGP ERFORMED BY: TONYA [facility] Mlznbt2371 [address] RoadDublin [place] [id number] Triglyceride [Mass/Vol] 189 mg/dL Abnormal 0-149 C ompaccess hospital daytonensive Internal Medicine; [facility] Work Phone: Comment on above: PATIENT WAS FASTINGP ERFORMED BY: TONYA [facility] Ntqjsa4109 [address] RoadDublin [place] [id number] LIPID PANEL (41497) 32 mg/dL Normal 5-40 Compr ensive Internal Medicine; [facility] Work Phone: Comment on above: PATIENT WAS FASTINGP ERFORMED BY: [facility] Bafvqh7249 [address] RoadDublin [place] [id number] LIPID PANEL (38268) 71 mg/dL Normal 0-99 Compr ensive Internal Medicine; [facility] Work Phone: Comment on above: PATIENT WAS FASTINGP ERFORMED BY: TONYA [facility] Zauxuf0759 [address] RoadDublin [place] [id number] LIPID PANEL (48151) 1.6 {ratio} Normal 0.0-3.6 Comp [facility] daytonensive [facility]; [facility] Work Phone: Comment on above: LDL/HDL Ratio Men Wo men 1/2 Avg.Risk 1.0 1.5 Avg.Risk 3.6 3.2 2X Avg.Risk 6.2 5.0 3X Avg.Risk 8.0 6.1 PATIENT WAS FASTINGP ERFORMED BY: CB [facility] Jsdira5798 [address] RoadDublin [place] [id number] METABOLIC PANEL, COMPREHENSI VE (01986)Ordered By: Calliope Player on 06-26-2021 Albumin [Mass/Vol] 4.6 g/dL Normal 3.8-4.8 [facility] Internal Medicine; [facility] Work Phone: Comment on above: PATIENT WAS FASTINGP ERFORMED BY: CB [facility] Dgveee5196 [address] RoadDublin [place] [id number] Albumin/Globulin [Mass ratio] 1.8 {ratio} Normal 1.2-2.2 [facility]; [facility] Work Phone: Comment on above: PATIENT WAS FASTINGP ERFORMED BY: CB [facility] Ucjfmg8888 [address] RoadDublin [place] [id number] ALP [Catalytic activity/Vol] 62 U/L Normal 44-121 [facility]; [facility] Work Phone: Comment on above: Please note refere nce interval change PATIENT WAS FASTINGP ERFORMED BY: CB [facility] Nvzpnv2164 [address] RoadDublin [place] [id number] ALT [Catalytic activity/Vol] 23 U/L Normal 0-44 [facility]; [facility] Work Phone: Comment on above: PATIENT WAS FASTINGP ERFORMED BY: CB [facility] Svkapr8580 [address] RoadDublin [place] [id number] AST [Catalytic activity/Vol] 24 U/L Normal 0-40 [facility]; [facility] Work Phone: Comment on above: PATIENT WAS FASTINGP ERFORMED BY: CB [facility] Atkvru4293 [address] RoadDublin [place] [id number] Bilirubin [Mass/Vol] 0.3 mg/dL Normal 0.0-1.2 Comp rehensive Internal Medicine; [facility] Work Phone: Comment on above: PATIENT WAS FASTINGP ERFORMED BY: TONYA Torres6[address] [facility] [id number] Calcium [Mass/Vol] 9.2 mg/dL Normal 8.6-10.2 [facility] Internal [facility]; [facility] Work Phone: Comment on above: PATIENT WAS FASTINGP ERFORMED BY: TONYA Torres6370 [facility] [id number] Chloride [Moles/Vol] 104 mmol/L Normal 96-106 Comp rehensive Internal Medicine; [facility] Work Phone: Comment on above: PATIENT WAS FASTINGP ERFORMED BY: TONYA Davidsonlin6370 [facility] [id number] CO2 [Moles/Vol] 22 mmol/L Normal 20-29 [facility] Internal [facility]; [facility] Work Phone: Comment on above: PATIENT WAS FASTINGP ERFORMED BY: TONYA Holly Gpwzmd7961 [facility] [id number] Creatinine [Mass/Vol] 0.77 mg/dL Normal 0.76-1.27 [facility]; [facility] Work Phone: Comment on above: PATIENT WAS FASTINGP ERFORMED BY: Avni Jbvxah2418 [facility] [id number] GFR/1.73 sq M.predicted among blacks CKD-EPI (S/P/Bld) [Vol rate/Area] 113 mL/min/1.73 Normal [facility]; [facility] Work Phone: Comment on above: In accordance with recommendations from the NKF-ASN Task force, [facility] is in [facility] of updating its eGFR calculation to the 2020 CKD-EPI creatinine equation that estimates kidney function without a race variable. PATIENT WAS FASTINGP ERFORMED BY: Avni Xxobwq8683 [facility] [id number] GFR/1.73 sq M.predicted among non-blacks CKD-EPI (S/P/Bld) [Vol rate/Area] 98 mL/min/1.73 Normal [facility]; [facility] Work Phone: Comment on above: PATIENT WAS FASTINGP ERFORMED BY: TONYA Labjuliana Torres6370 [address]blin [place] [id number] Globulin (S) [Mass/Vol] 2.6 g/dL Normal 1.5-4.5 C omprehensive Internal Medicine; [facility] Work Phone: Comment on above: PATIENT WAS FASTINGP ERFORMED BY: TONYA Labcoaida DavidsonSdqmsj8579 [address] RoadDublin [place] [id number] Glucose [Mass/Vol] 94 mg/dL Normal 65-99 [facility]; [facility] Work Phone: Comment on above: PATIENT WAS FASTINGP ERFORMED BY: TONYA Labmdaida DavidsonQllwqz7869 [address] [facility] [place] [id number] Potassium [Moles/Vol] 4.4 mmol/L Normal 3.5-5.2 [facility]ensive [facility]; [facility] Work Phone: Comment on above: PATIENT WAS FASTINGP ERFORMED BY: TONYA Labjuliana DavidsonOukuvb8097 [address] [facility]in [place] [id number] Protein [Mass/Vol] 7.2 g/dL Normal 6.0-8.5 [facility]; [facility] Work Phone: Comment on above: PATIENT WAS FASTINGP ERFORMED BY: TONYA [facility] Fiyklj4444 [address] [facility]in [place] [id number] Sodium [Moles/Vol] 142 mmol/L Normal 134-144 [facility] hospitalive [facility]; [facility] Work Phone: Comment on above: PATIENT WAS FASTINGP ERFORMED BY: TONYA [facility] Dcpguq1229 [address] RoadDublin [place] [id number] Urea nitrogen [Mass/Vol] 12 mg/dL Normal 8-27 [facility]; [facility] Work Phone: Comment on above: PATIENT WAS FASTINGP ERFORMED BY: TONYA Torres6370 [address] RoadDublin [place] [id number] Urea nitrogen/Creatinine [Mass ratio] 16 mg/mg Normal 10-24 [facility]; [facility] Work Phone: Comment on above: PATIENT WAS FASTINGP ERFORMED BY: TONYA Davidsonlin6370 [address] RoadDublin [place] [id number] MICROALBUMINOrdered By: Novaliq em Horse Rancher on 06-26-2021 Albumin DL <= 20 mg/L (U) [Mass/Vol] 13.9 ug/mL Normal [facility]; [facility] Work Phone: Comment on above: PATIENT WAS FASTINGP ERFORMED BY: TONYA Torres6370 [address] RoadDublin [place] [id number] Albumin/Creatinine (U) [Mass ratio] 11 {mg/g_creat} Normal 0-29 [facility]; [facility] Work Phone: Comment on above: Normal: 0 - 29 Moder ately increased: 30 - 300 Severely increased: >300 PATIENT WAS FASTINGP ERFORMED BY: TONYA Davidsonlin6370 [address] RoadDublin [place] [id number] Creatinine (U) [Mass/Vol] 124.4 mg/dL Normal [facility]; [facility] Work Phone: Comment on above: PATIENT WAS FASTINGP ERFORMED BY: TONYA Davidsonlin6370 [address] [facility]in [place] [id number] TSH ([id number])Ordered By: Novaliqe m Horse Rancher on 06-26-2021 TSH Qn 2.600 {uIU/mL} Normal 0.450-4.50 0 [facility]; [facility] Work Phone: Comment on above: PATIENT WAS FASTINGP ERFORMED BY: TONYA Davidsonlin6370 [address] [facility] CenterD[place] [id number] URINALYSIS, W/ MICRO ([id number]) Ordered By: Calliope Player on 06-26-2021 Appearance (U) Clear Normal Comprehens arianna Internal Medicine; [facility] Work Phone: Comment on above: PATIENT WAS FASTINGP ERFORMED BY: [facility]6370 [address]Dublin [place] [id number] Bilirubin Ql (U) Negative Normal Comprehe nsive Internal Medicine; [facility] Work Phone: Comment on above: PATIENT WAS FASTINGP ERFORMED BY: Avni Mfeftr7435 [address] RoadDublin [place] [id number] Color (U) Yellow Normal [facility]; Comprehensive Internal Medicine Work Phone: Comment on above: PATIENT WAS FASTINGP ERFORMED BY: [facility] [place] [id number] Glucose Ql (U) Negative Normal Comprehens arianna Internal Medicine; [facility] Work Phone: Comment on above: PATIENT WAS FASTINGP ERFORMED BY: [facility] [place] [id number] Hemoglobin Ql (U) Negative Normal Compreh ensive Internal Medicine; [facility] Work Phone: Comment on above: PATIENT WAS FASTINGP ERFORMED BY: [facility]Atrium Health Cabarrusin [place] [id number] Ketones Ql (U) Negative Normal Comprehens arianna Internal Medicine; [facility] Work Phone: Comment on above: PATIENT WAS FASTINGP ERFORMED BY: [facility]Atrium Health Cabarrusin [place] [id number] Leukocyte esterase Test strip Ql (U) Negative Normal [facility]; [facility] Work Phone: Comment on above: PATIENT WAS FASTINGP ERFORMED BY: [facility] [facility] [place] [id number] Microscopic observation LM Nom (Urine sed) MICRON Normal [facility]; [facility] Work Phone: Comment on above: Microscopic follows if indicated. PATIENT WAS FASTINGP ERFORMED BY: [facility]Dublin [place] [id number] Microscopic observation LM Nom (Urine sed) See below: Normal [facility]; [facility] Work Phone: Comment on above: Microscopic was lynnette cated and was performed. PATIENT WAS FASTINGP ERFORMED BY: [facility] Yuedpr[address] [facility] [id number] Nitrite Ql (U) Negative Normal Comprehens arianna Internal Medicine; [facility] Work Phone: Comment on above: PATIENT WAS FASTINGP ERFORMED BY: [facility] Ngimpz4749 [facility] [id number] pH (U) 6.5 [pH] Normal 5.0-7.5 [facility]; [facility] Work Phone: Comment on above: PATIENT WAS FASTINGP ERFORMED BY: [facility] Sroahh[address] [facility] [id number] Protein Ql (U) Negative Normal Comprehens arianna Internal Medicine; [facility] Work Phone: Comment on above: PATIENT WAS FASTINGP ERFORMED BY: [facility]6370 [facility] [id number] Specific gravity (U) [Rel density] 1.020 1 Normal 1.005-1.03 0 [facility]; [facility] Work Phone: Comment on above: PATIENT WAS FASTINGP ERFORMED BY: [facility] Yndwyk5783 [facility] [id number] Urobilinogen (U) [Mass/Vol] 0.2 mg/dL Normal 0.2-1.0 [facility]; [facility] Work Phone: Comment on above: PATIENT WAS FASTINGP ERFORMED BY: [facility]6370 [facility] [id number] HEPATITIS C ANTIBODY (20830) Ordered By: Calliope Player on 12-21-2020 HCV Ab Signal/Cutoff IA [Rel units/Vol] {ratio} Normal 0.0-0.9 [facility]; [facility] Work Phone: Comment on above: Negative: < 0.8 Inde terminate: 0.8 - 0.9 Positive: > 0.9 . The CDC recommends that a positive HCV antibody result be followed up with a HCV Nucleic Acid Amplification test (387692). Test(s) 650793-IAA-P ; 021452-WAR-C; 281738-Ywopgfsobulmu; 817351-Wozkzdsxuwh, Total; 654227-ZRV-V (Total); 660909-Crejx LDL-P; 007206-WSR Size; 329222-DX-KN Scorewas developed and its performance characteristics determinedby Dtime. It has not been cleared or approved by the Foodand Drug Administration.PATIENT WAS FASTINGPERFORMED BY: [facility] [address] [id number] BY: SMGBB70 G-[facility] Research & CreationGood Hope Hospital [id number] MICROALBUMINOrdered By: Novaliq em Horse Rancher on 12-21-2020 Albumin DL <= 20 mg/L (U) [Mass/Vol] 9.5 ug/mL Normal [facility]; [facility] Work Phone: Comment on above: Test(s) 566685-ESO-Y ; 443469-VQA-X; 266690-Pbfjusgdtaxrl; 015052-Ftevhpqwiqt, Total; 969919-HYR-R (Total); 082474-Irtqu LDL-P; 036152-VJG Size; 776945-MX-OI Scorewas developed and its performance characteristics determinedby Dtime. It has not been cleared or approved by the Foodand Drug Administration.PATIENT WAS FASTINGPERFORMED BY: [facility] [address] [id number] BY: SMGBB[address] MergeLocalUNC Health Chatham [id number] Albumin/Creatinine (U) [Mass ratio] 10 {mg/g_creat} Normal 0-29 [facility]; [facility] Work Phone: Comment on above: Normal: 0 - 29 Moder ately increased: 30 - 300 Severely increased: >300 Test(s) 637861-FVT-K ; 673940-SUZ-Z; 627402-Xpgruflbormbn; 434537-Xzkvjqioiol, Total; 361519-QIL-T (Total); 300107-Qcqwk LDL-P; 980222-DWW Size; 497654-JK-WC Scorewas developed and its performance characteristics determinedby Dtime. It has not been cleared or approved by the Foodand Drug Administration.PATIENT WAS FASTINGPERFORMED BY: [facility] [address] [id number] BY: [employer] Aolpdc6874 [facility] [id number] Creatinine (U) [Mass/Vol] 91.2 mg/dL Normal [facility]; [facility] Work Phone: Comment on above: Test(s) 162719-NVY-K ; 209428-QGP-G; 244658-Qalmpilynhwbc; 542165-Pfqsxnbrjdt, Total; 104932-JKM-B (Total); 252393-Pilvb LDL-P; 653752-ABC Size; 035587-IT-FF Scorewas developed and its performance characteristics determinedby Dtime. It has not been cleared or approved by the Foodand Drug Administration.PATIENT WAS FASTINGPERFORMED BY: [facility] [address] [id number] BY: SMGBB70 [facility] [id number] NMR Profile (43231)Ordered B y: Calliope Player on 12-21-2020 Cholesterol [Mass/Vol] 140 mg/dL Normal 100-199 [facility] Internal Medicine; [facility] Work Phone: Comment on above: Test(s) 218321-MBW-Y ; 897268-UDX-E; 849669-Dnfrksatyfqgx; 799425-Dqnuzozyvwz, Total; 384410-DVL-N (Total); 236934-Oxfxi LDL-P; 200526-WCQ Size; 494181-BN-HH Scorewas developed and its performance characteristics determinedby Dtime. It has not been cleared or approved by the Foodand Drug Administration.PATIENT WAS FASTINGPERFORMED BY: [facility] [address] [id number] BY: [employer]6370 [facility] [id number] Lipoprotein.alpha [Moles/Vol] 32.7 umol/L Normal [facility]; [facility] Work Phone: Comment on above: Test(s) 869059-FYX-L ; 351372-SFS-J; 391385-Cxwrmsbpitrdl; 633622-Ceiavosfdao, Total; 265828-GYF-C (Total); 651240-Ozlzv LDL-P; 666801-BYD Size; 772995-WZ-SN Scorewas developed and its performance characteristics determinedby Dtime. It has not been cleared or approved by the Foodand Drug Administration.PATIENT WAS FASTINGPERFORMED BY: BN [facility] Fptbohqusv8402 [facility][1] [id number] BY: CB [facility] Ichbbj8353 [facility] [id number] Lipoprotein.beta.subpar ticle [Entitic length] 21.0 nm Normal [facility] Internal Medicine; [facility] Work Phone: Comment on above: INTERPRETATIVE INFORMATION PARTICLE CONCENTRATION AND SIZE <--Lower CVD Risk Higher CVD Risk--> LDL AND HDL PARTICLES Percentile in Reference Population HDL-P (total) High 75th 50th 25th Low >34.9 34.9 30.5 26.7 <26.7 . Small LDL-P Low 25th 50th 75th High <117 117 527 839 >839 . LDL Size <-Large (Pattern A)-> <-Small (Pattern B)-> 23.0 20.6 20.5 19.0 Smal l LDL-P and LDL Size are associated with CVD risk, but not afterLDL-P is taken into account. Test(s) 560623-MPG-N ; 775924-CPF-L; 484766-Gqjncjwgwnhfe; 929302-Ziidjstvbys, Total; 009237-VKI-W (Total); 824300-Rhqfz LDL-P; 675828-BGH Size; 435000-AO-JI Scorewas developed and its performance characteristics determinedby Dtime. It has not been cleared or approved by the Foodand Drug Administration.PATIENT WAS FASTINGPERFORMED BY: [employer] [id number] BY: [employer] Imaging CorporationMorgan V[place] 9235970 [facility] [id number] Lipoprotein.beta.subpar ticle [Moles/Vol] 794 nmol/L Normal [facility]; [facility] Work Phone: Comment on above: Low < 1000 Moderate 1000 - 1299 Borderline-High 1300 - 1599 High 1600 - 2000 Very High > 2000 Test(s) 912077-SCG-I ; 705034-RDN-G; 226250-Gjhgxohbzqhat; 697771-Yssgvdmatka, Total; 256128-JLC-D (Total); 898129-Zvugt LDL-P; 941006-JIC Size; 806264-VE-SP Scorewas developed and its performance characteristics determinedby Dtime. It has not been cleared or approved by the Foodand Drug Administration.PATIENT WAS FASTINGPERFORMED BY: [employer] [address] [id number] BY: [employer] Imaging CorporationInscription House Health CenterUbwaja0851 [facility] [id number] Lipoprotein.beta.subpar ticle.small [Moles/Vol] 227 nmol/L Normal Comprehe [facility] Internal Medicine; [facility] Work Phone: Comment on above: Test(s) 145125-UMC-D ; 912803-WWN-T; 022000-Acffefuiiugvc; 488973-Mtvdzsiloyq, Total; 049554-UFQ-Z (Total); 034249-Njvzc LDL-P; 318774-ZUR Size; 388489-UQ-JQ Scorewas developed and its performance characteristics determinedby Dtime. It has not been cleared or approved by the Foodand Drug Administration.PATIENT WAS FASTINGPERFORMED BY: [facility] [address] StreetBurlington [place] [id number] BY: [employer] CorporationRobert Wood Johnson University HospitalOymrxx1643 [facility] [id number] Triglyceride [Mass/Vol] 110 mg/dL Normal 0-149 C omprehensive Internal Medicine; [facility] Work Phone: Comment on above: Test(s) 688782-OOU-G ; 171753-TST-E; 965619-Mejucyctjquqi; 743148-Cznxyupmhdn, Total; 349015-JZJ-R (Total); 259298-Sdjpf LDL-P; 281462-NRC Size; 698393-PM-BX Scorewas developed and its performance characteristics determinedby Dtime. It has not been cleared or approved by the Foodand Drug Administration.PATIENT WAS FASTINGPERFORMED BY: [facility] [address] [id number] BY: [employer] Tpqdzs0953 [facility] [id number] NMR Profile (39101) 71 mg/dL Normal 0-99 Compr ensive Internal Medicine; [facility] Work Phone: Comment on above: . Optimal < 100 Abov e optimal 100 - 129 Borderline 130 - 159 High 160 - 189 Very high > 189 . Test(s) 736417-ISI-A ; 118767-BUX-O; 940397-Ujfdlqruwnias; 378082-Daxajaendon, Total; 816905-AOF-Q (Total); 441329-Ntelp LDL-P; 651766-HXQ Size; 428330-KQ-ZY Scorewas developed and its performance characteristics determinedby Dtime. It has not been cleared or approved by the Foodand Drug Administration.PATIENT WAS FASTINGPERFORMED BY: [employer] [id number] BY: [employer] CorporationRobert Wood Johnson University HospitalMahqhp5501 [facility] [id number] NMR Profile (51221) 49 mg/dL Normal Compr ehensive Internal Medicine; [facility] Work Phone: Comment on above: Test(s) 904706-VFD-H ; 914154-TCO-W; 575841-Aovmoybpqtyxz; 218970-Qdschejrpzj, Total; 543039-ZTG-E (Total); 748123-Cbsim LDL-P; 264422-QZT Size; 700392-KO-LH Scorewas developed and its performance characteristics determinedby Dtime. It has not been cleared or approved by the Foodand Drug Administration.PATIENT WAS FASTINGPERFORMED BY: [employer] [address] [id number] BY: [employer] Imaging CorporationInscription House Health CenterUbavze4790 [facility] [id number] NMR Profile (37117) 110 mg/dL Normal 0-149 Compr ensive Internal Medicine; [facility] Work Phone: NMR Profile (25538) 140 mg/dL Normal 100-199 Compr ensive Internal Medicine; [facility] Work Phone: PSA (PROSTATE SPECIFIC ANTIG EN) (V76.44)Ordered By: Calliope Player on 12-21-2020 Prostate specific Ag [Mass/Vol] 0.3 ng/mL Normal 0.0-4.0 [facility]; [facility] Work Phone: Comment on above: Deanna ECLIA methodol ogy. .According to the [place] [employer], Serum PSA shoulddecrease and remain at undetectable levels after radicalprostatectomy. The AUA defines biochemical recurrence as an initialPSA value 0.2 ng/mL or greater followed by a subsequent confirmatoryPSA value 0.2 ng/mL or greater.Values obtained with different assay methods or kits cannot be usedinterchangeably. Results cannot be interpreted as absolute evidenceof the presence or absence of malignant disease. Test(s) 318741-BJS-H ; 332146-LSU-B; 914408-Htzlscqdgmkzp; 587645-Sdnedbdniov, Total; 149973-KXR-O (Total); 956915-Grhlw LDL-P; 774332-SRI Size; 026514-XJ-ZF Scorewas developed and its performance characteristics determinedby Dtime. It has not been cleared or approved by the Foodand Drug Administration.PATIENT WAS FASTINGPERFORMED BY: [employer] [address] [id number] BY: [employer]6370 adQUNC Health Chatham [id number] TSH (64173)Ordered By: Novaliqe m Horse Rancher on 12-21-2020 TSH Qn 2.870 {uIU/mL} Normal 0.450-4.50 0 [facility]; [facility] Work Phone: Comment on above: Test(s) 700565-TER-T ; 782887-NHG-J; 262995-Vzaximqhxxhbv; 543197-Qtniseqgzfx, Total; 667504-ZOS-R (Total); 381448-Ypfkw LDL-P; 910839-GIE Size; 683580-JO-CT Scorewas developed and its performance characteristics determinedby Dtime. It has not been cleared or approved by the Foodand Drug Administration.PATIENT WAS FASTINGPERFORMED BY: [employer] [facility][1] [id number] BY: [employer]6370 [facility] Research & CreationGood Hope Hospital [id number] URINALYSIS, W/ MICRO (11914) Ordered By: Calliope Player on 12-21-2020 Appearance (U) Clear Normal Comprehens arianna Internal Medicine; [facility] Work Phone: Comment on above: Test(s) 599618-BAC-I ; 293649-FWS-R; 773409-Zvqwyvsughsao; 076724-Dxtyakccpcv, Total; 400275-NEB-D (Total); 897484-Hdbqj LDL-P; 348971-KPY Size; 788595-CF-GE Scorewas developed and its performance characteristics determinedby Dtime. It has not been cleared or approved by the Foodand Drug Administration.PATIENT WAS FASTINGPERFORMED BY: [employer] [facility][1] [id number] BY: [employer]6370 [facility] Research & CreationGood Hope Hospital [id number] Bilirubin Ql (U) Negative Normal Comprehe nsive Internal Medicine; [facility] Work Phone: Comment on above: Test(s) 242981-RZV-B ; 073888-VYH-R; 006843-Vjidytlrsmatc; 879202-Osrwzcotinz, Total; 706982-FBE-G (Total); 648941-Ooebr LDL-P; 131755-IGC Size; 589556-GH-YA Scorewas developed and its performance characteristics determinedby Dtime. It has not been cleared or approved by the Foodand Drug Administration.PATIENT WAS FASTINGPERFORMED BY: [employer] [id number] BY: SMGBB70 [address] NameMediaGood Hope Hospital [id number] Color (U) Yellow Normal [facility]; [facility] Work Phone: Comment on above: Test(s) 040029-CCD-Q ; 369938-KMO-U; 104715-Hjjfdokjcqmqv; 344318-Ngxqgbexvoj, Total; 198908-NRL-W (Total); 131517-Kawcv LDL-P; 816860-YMP Size; 765706-TE-MG Scorewas developed and its performance characteristics determinedby Dtime. It has not been cleared or approved by the Foodand Drug Administration.PATIENT WAS FASTINGPERFORMED BY: [facility] [address] [id number] BY: SMGBB70 [address] NameMediaGood Hope Hospital [id number] Glucose Ql (U) Negative Normal [facility] Internal Medicine; [facility] Work Phone: Comment on above: Test(s) 884544-KTB-C ; 547241-BNZ-O; 979516-Ehgzgwsfqzvbb; 280448-Mmhqhmppsyr, Total; 800430-CKP-A (Total); 046266-Xydfe LDL-P; 308980-NEL Size; 386444-OU-PJ Scorewas developed and its performance characteristics determinedby Dtime. It has not been cleared or approved by the Foodand Drug Administration.PATIENT WAS FASTINGPERFORMED BY: [employer] [id number] BY: SMGBB70 [employer] Research & CreationGood Hope Hospital [id number] Hemoglobin Ql (U) Negative Normal Compreh ensive Internal Medicine; [facility] Work Phone: Comment on above: Test(s) 919799-TUJ-N ; 777316-CFU-Z; 131849-Zzimjgvlghmdk; 704071-Mfjhurwizdi, Total; 611369-BCL-L (Total); 337782-Yxajv LDL-P; 622602-BCZ Size; 061397-AW-HF Scorewas developed and its performance characteristics determinedby Dtime. It has not been cleared or approved by the Foodand Drug Administration.PATIENT WAS FASTINGPERFORMED BY: [facility] [address] [id number] BY: SMGBB70 [facility]aneyCass [facility] Center [id number] Ketones Ql (U) Negative Normal Comprehens arianna Internal Medicine; [facility] Work Phone: Comment on above: Test(s) 774295-GRV-F ; 850178-GEV-T; 794289-Mdjezzqypwbid; 703091-Dnghuftbnsz, Total; 204689-ULP-S (Total); 216886-Nziek LDL-P; 573857-BEV Size; 866958-ZY-ZB Scorewas developed and its performance characteristics determinedby Dtime. It has not been cleared or approved by the Foodand Drug Administration.PATIENT WAS FASTINGPERFORMED BY: [facility] [address] [id number] BY: [employer] Guextm0678 [facility] [id number] Leukocyte esterase Test strip Ql (U) Negative Normal [facility]; [facility] Work Phone: Comment on above: Test(s) 042056-IWH-R ; 767098-BXK-H; 347837-Yzjfebcmweela; 936037-Usiyrvicuoe, Total; 686397-JTD-E (Total); 257860-Lihse LDL-P; 319996-BWP Size; 090980-KI-TN Scorewas developed and its performance characteristics determinedby Dtime. It has not been cleared or approved by the Foodand Drug Administration.PATIENT WAS FASTINGPERFORMED BY: [employer] [id number] BY: [employer] Wullgh7473 [facility]aneyCass [facility] Center [id number] Microscopic observation LM Nom (Urine sed) MICRON Normal [facility]; [facility] Work Phone: Comment on above: Microscopic follows if indicated. Test(s) 552341-NIM-M ; 566868-WMC-M; 575986-Pnzoxzfkssssi; 125892-Hzhekinjfxx, Total; 335621-LHL-P (Total); 783539-Lwuao LDL-P; 306288-OIR Size; 089912-DP-YN Scorewas developed and its performance characteristics determinedby Dtime. It has not been cleared or approved by the [employer] Drug Administration.PATIENT WAS FASTINGPERFORMED BY: Space[employer] [id number] BY: SMGBB70 [facility] [id number] Microscopic observation LM Nom (Urine sed) See below: Normal [facility]; [facility] Work Phone: Comment on above: Microscopic was lynnette cated and was performed. Test(s) 699053-VIJ-P ; 164415-ZHM-I; 594605-Ruidkybqhwwux; 469602-Eubrbvfhzoa, Total; 715008-TOE-J (Total); 833695-Dqwlp LDL-P; 444466-VQH Size; 127027-AR-VF Scorewas developed and its performance characteristics determinedby Dtime. It has not been cleared or approved by the Foodand Drug Administration.PATIENT WAS FASTINGPERFORMED BY: [facility] [address] [id number] BY: ScalingDataRobert Wood Johnson University HospitalJnddgu1163 [facility] [id number] Nitrite Ql (U) Negative Normal Comprehens arianna Internal Medicine; [facility] Work Phone: Comment on above: Test(s) 916697-TIR-N ; 744711-WXW-K; 615829-Yuknznfrqucja; 328898-Pebrqjsggql, Total; 289034-KPS-C (Total); 726752-Hvwca LDL-P; 630471-SEO Size; 725876-YK-XS Scorewas developed and its performance characteristics determinedby Dtime. It has not been cleared or approved by the Foodand Drug Administration.PATIENT WAS FASTINGPERFORMED BY: [facility] [address] [id number] BY: SoftWrit[employer] HoldingsGood Hope Hospital [id number] pH (U) 7.0 [pH] Normal 5.0-7.5 [facility]; [facility] Work Phone: Comment on above: Test(s) 615327-FGT-C ; 243723-ZIJ-J; 824455-Spucnfvpfhhdi; 047337-Gwlmhmjejop, Total; 350930-DTE-M (Total); 821132-Numnm LDL-P; 009990-ZRJ Size; 490635-CB-LW Scorewas developed and its performance characteristics determinedby Dtime. It has not been cleared or approved by the Foodand Drug Administration.PATIENT WAS FASTINGPERFORMED BY: [facility] [address] [id number] BY: SoftWrit[employer] HoldingsGood Hope Hospital [id number] Protein Ql (U) Negative Normal Comprehens [facility] Internal Medicine; [facility] Work Phone: Comment on above: Test(s) 672155-GCX-I ; 062133-PZX-T; 466493-Wuvvpjqztyacg; 431574-Dtyltlmvmvl, Total; 846217-RIK-J (Total); 924624-Hvudt LDL-P; 797726-BIE Size; 904879-JI-LS Scorewas developed and its performance characteristics determinedby Dtime. It has not been cleared or approved by the Foodand Drug Administration.PATIENT WAS FASTINGPERFORMED BY: [facility] [address] [id number] BY: [employer]6370 [facility]-[employer] Research & CreationGood Hope Hospital [id number] Specific gravity (U) [Rel density] 1.018 1 Normal 1.005-1.03 0 [facility]; [facility] Work Phone: Comment on above: Test(s) 968912-ZFY-T ; 153722-CTU-S; 809439-Jijbfnsisavws; 972661-Uysnqynneko, Total; 649986-HJP-E (Total); 449079-Ernkk LDL-P; 718884-JJG Size; 800507-YW-VZ Scorewas developed and its performance characteristics determinedby Dtime. It has not been cleared or approved by the Foodand Drug Administration.PATIENT WAS FASTINGPERFORMED BY: [employer] [facility][1] [id number] BY: WidetronixIreland Army Community Hospital [id number] Urobilinogen (U) [Mass/Vol] 0.2 mg/dL Normal 0.2-1.0 [facility]; [facility] Work Phone: Comment on above: Test(s) 346905-FUN-O ; 025790-JBY-I; 827561-Enollclkymaem; 406543-Vrxppgctmtt, Total; 762590-BHN-R (Total); 048415-Wxrep LDL-P; 701419-DYM Size; 705177-UB-RR Scorewas developed and its performance characteristics determinedby Dtime. It has not been cleared or approved by the Foodand Drug Administration.PATIENT WAS FASTINGPERFORMED BY: [employer]1447 [facility][1] [id number] BY: [employer]6370 [address] NameMediaGood Hope Hospital [id number] Krystal 12-14-2020 BREANNAN Telephone (Bumble Beez[place]) FREDERIC OVALLES ([id number]) 1960 M Date Time Provider Department 12/14/20 INTERVENTIONAL CLINICIAN RAFI During your visit today, we recorded the following information about you: Ximena Hills 12/14/2020 3:43 PM Signed Contacted patient in order to reconnect patient. Left message with the reason I was calling and the call back number in order to schedule. Allergies As of Date: 12/14/2020 (No Known Allergies) Date Reviewed: 12/22/2019 Reviewed by: Terese MoodyRn) RUBÉN Zelaya - Fully Assessed Reason for Visit: Future Appointment [256] Cmt: reconnect patient Prescriptions as of 12/14/2020 Sig: ATORVASTATIN 80 MG TABLET Take 1 tablet by mouth daily * CARVEDILOL 6.25 MG TABLET Take 1 tablet by mouth twice * RAMIPRIL 2.5 MG CAPSULE Take 1 capsule by mouth once * ASPIRIN 81 MG CHEWABLE TABLET Take 1 tablet by mouth once d* NITROGLYCERIN 0.4 MG SUBLINGU* Dissolve 1 tablet under the t* Problem List As Of Date 12/14/2020 Noted Resolved Gastroesophageal reflux disease [K21.9] 04/25/2016 Ex-smoker [Z87.891] 04/25/2016 Dyspnea [R06.00] 04/25/2016 Chest pain [R07.9] 04/25/2016 Hyperlipidemia, unspecified [E78.5] 05/04/2016 Chronic low back pain [M54.5, G89.29] 11/28/2015 Spondylosis without myelopathy or radiculopathy* 6 Hypertriglyceridemia [E78.1] Hyperlipidemia [E78.5] Early satiety [R68.81] Elevated blood pressure reading without diagnos*11/26/2016 Obesity [E66.9] 11/26/2016 STEMI (ST elevation myocardial infarction) (HCC*01/20/2017 Smoking [F17.200] 01/23/2017 Encounter Status:Closed by XIMENA GONZALEZ on 12/14/20 Normal [facility] Basophil percentageon 2019 Eosinophils/100 WBC (Bld) 6 % High 0-5 [facility] Blood platelet adequacy dete ction by light microscopyon 05-05-2020 Platelets LM Ql (Bld) ADEQUATE ADEQ [facility] - Hematology and Cell countson 05-05-2020 Lymphocytes/100 WBC (Bld) 20 % 19-41 [facility] Metamyelocytes/100 WBC (Bld) 3 % High 0-1 [facility] Monocytes/100 WBC (Bld) 5 % 0-[address] [facility] Myelocytes/100 WBC (Bld) 1 % High 0-0 [facility] Neutrophils/100 WBC (Bld) 65 % 47-70 [facility] RBC morphologyon 05-05-2020 RBC morphology finding Nom (Bld) NORM C+C NORMAL NORM C&C [facility] Review by pathologiston 04-21 Pathologist review Miguel (Unsp spec) [Interp] Reviewed [facility] Comment on above: Previous reported re sult: Ayleen veliz Edited by: NENO on 05/06/20:1247Leukocytosis with Neutrophilic left shift.Clinical correlation necessary.Ryan Tinoco M.D. 05/06/20 AMENDED REPORT 05/06/20 1247 PATH REV previously reported as: Ayleen veliz Total cell counton 0 Cells counted [employer] (Bld/Tiss) [#] 100 MANUAL DIFF [facility] Basophils/100 WBC Manual cnt (Unsp spec)on 04-28-2020 Basophils/100 WBC (Unsp spec) 2 % High 0-1 [facility] Laboratory - Hematology and Cell countson 04-28-2020 Band form neutrophils/100 WBC (Bld) 12 % High 0-5 [facility] No Panel Informationon 04-28 Promyelocytes % 1 High 0-0 [facility] CBC W/AUTO DIFF WBC (72802)O rdered By: Calliope Player on 04-26-2020 Basophils (Bld) [#/Vol] 0.6 {x10E3/uL} Abnormal 0.0-0.2 [facility] Work Phone: Comment on above: Test(s) 429854-FWN-Y ; 449521-UYF-R; 109100-Ryoyirkdrmago; 774882-Jrcrzqrxqml, Total; 540571-LHD-S (Total); 862477-Vlubi LDL-P; 416719-MXU Size; 287563-JH-RS Scorewas developed and its performance characteristics determinedby [facility]. It has not been cleared or approved by the Foodand Drug Administration.PATIENT WAS FASTINGPERFORMED BY: [facility] [address] [id number] BY: Peg[employer] Imaging CorporationInscription House Health CenterXmkbuq3647 [facility] [id number] Basophils (Bld) [#/Vol] 0.6 10*3/uL Abnormal 0.0-0.2 [facility]; [facility] Work Phone: Comment on above: Test(s) 883133-UWC-V ; 911343-JZX-E; 792605-Lkfndgkxrbnqr; 208485-Mzmkopmygxo, Total; 948716-MVM-F (Total); 596050-Cshzt LDL-P; 305018-HLG Size; 212611-KA-IN Scorewas developed and its performance characteristics determinedby [employer]. It has not been cleared or approved by the Foodand Drug Administration.PATIENT WAS FASTINGPERFORMED BY: [facility] [address] [id number] BY: [employer]6[address] [place] [facility] [id number] Basophils/100 WBC (Bld) 2 % Normal [facility] Internal Medicine Work Phone: Comment on above: Test(s) 487279-RRH-M ; 171209-WDK-H; 760447-Jytulsjipnyom; 794814-Clsvujordpu, Total; 522998-BAT-W (Total); 877002-Xxkie LDL-P; 220437-QVL Size; 406978-IC-QC Scorewas developed and its performance characteristics determinedby [employer]. It has not been cleared or approved by the Foodand Drug Administration.PATIENT WAS FASTINGPERFORMED BY: [facility] [address] [id number] BY: ScalingDataRobert Wood Johnson University HospitalQzmjgh7219 [facility] [id number] Eosinophils (Bld) [#/Vol] 2.0 {x10E3/uL} Abnormal 0.0-0.4 [facility] Work Phone: Comment on above: Test(s) 814461-UDY-C ; 223027-XWU-S; 283675-Cozutntqbzpeo; 054883-Heikrzrfnae, Total; 386053-FAX-B (Total); 073441-Ogmnd LDL-P; 982156-QOI Size; 464261-TD-JX Scorewas developed and its performance characteristics determinedby [employer]. It has not been cleared or approved by the Foodand Drug Administration.PATIENT WAS FASTINGPERFORMED BY: [facility] [address] [id number] BY: [employer] Bcxbua9298 [facility] [id number] Eosinophils (Bld) [#/Vol] 2.0 10*3/uL Abnormal 0.0-0.4 [facility]; [facility] Work Phone: Comment on above: Test(s) 116978-TXO-H ; 315770-XCA-K; 948957-Mjgnbdhjtvgkl; 638061-Bitszmiwqfa, Total; 977949-FZC-F (Total); 184614-Oloxs LDL-P; 229863-YXP Size; 250877-TC-WX Scorewas developed and its performance characteristics determinedby [employer]. It has not been cleared or approved by the Foodand Drug Administration.PATIENT WAS FASTINGPERFORMED BY: [facility] [address] [id number] BY: [employer]6370 [facility] [id number] Eosinophils/100 WBC (Bld) 7 % Normal [facility] Work Phone: Comment on above: Test(s) 567793-NZT-J ; 867235-CJG-C; 782440-Bztxtstnawyui; 290587-Aastbrzroay, Total; 182658-FBI-J (Total); 407893-Sezql LDL-P; 294656-PXH Size; 787200-RX-JN Scorewas developed and its performance characteristics determinedby [employer]. It has not been cleared or approved by the Foodand Drug Administration.PATIENT WAS FASTINGPERFORMED BY: BN [employer] [id number] BY: Pegasus Imaging CorporationRobert Wood Johnson University HospitalIbznnk6549 [facility] [id number] Erythrocyte distribution width (RBC) [Ratio] 13.6 % Normal 11.6-15.4 [facility] Work Phone: Comment on above: Test(s) 365537-ZQX-M ; 541386-SGO-N; 832014-Ehxszqkrsdexc; 440884-Saocxzakhzr, Total; 927585-UXB-E (Total); 425839-Ognzt LDL-P; 001290-UEA Size; 563650-YD-EA Scorewas developed and its performance characteristics determinedby [employer]. It has not been cleared or approved by the Foodand Drug Administration.PATIENT WAS FASTINGPERFORMED BY: [employer] [id number] BY: Peg[employer] Imaging CorporationRobert Wood Johnson University HospitalUxxxce9649 [facility] [id number] Hematocrit (Bld) [Volume fraction] 44.4 % Normal 37.5-51.0 [facility] Work Phone: Comment on above: Test(s) 468969-AQW-O ; 864477-PZA-Z; 985157-Mvldmwwjgiqrj; 868474-Khosizvpstb, Total; 093683-RHP-E (Total); 401048-Tzvol LDL-P; 466628-XKR Size; 780453-ES-ZW Scorewas developed and its performance characteristics determinedby [employer]. It has not been cleared or approved by the Foodand Drug Administration.PATIENT WAS FASTINGPERFORMED BY: [employer] [id number] BY: Peg[employer] Imaging CorporationRobert Wood Johnson University HospitalEtoyog2299 [facility] [id number] Hemoglobin (Bld) [Mass/Vol] 15.2 g/dL Normal 13.0-17.7 [facility] Work Phone: Comment on above: Test(s) 552257-VNF-Q ; 916663-UBH-A; 482687-Igijgmfbqvbft; 749389-Dpwybqditmf, Total; 714081-NTP-R (Total); 509590-Mallm LDL-P; 666888-BGE Size; 473512-LM-QH Scorewas developed and its performance characteristics determinedby [employer]. It has not been cleared or approved by the Foodand Drug Administration.PATIENT WAS FASTINGPERFORMED BY: [facility] [address] [id number] BY: SMGBB70 [facility] [id number] Immature cells/100 WBC (Bld) Note Normal [facility] Work Phone: Comment on above: Test(s) 077072-SZY-M ; 251297-VER-Y; 875230-Yedslwhpcteuw; 365656-Nwwflzpnwmk, Total; 077446-IVX-X (Total); 913546-Gzcvq LDL-P; 554387-BJM Size; 706027-RQ-ME Scorewas developed and its performance characteristics determinedby [employer]. It has not been cleared or approved by the Foodand Drug Administration.PATIENT WAS FASTINGPERFORMED BY: [facility] [address] [id number] BY: SMGBB70 [facility] [id number] Lymphocytes (Bld) [#/Vol] 4.2 {x10E3/uL} Abnormal 0.7-3.1 [facility] Work Phone: Comment on above: Test(s) 704723-JUT-P ; 056137-BGW-H; 324955-Yuvwgfjczbepr; 356709-Ihxedunfxqs, Total; 748642-CMH-B (Total); 107399-Paogb LDL-P; 663841-MPX Size; 646374-DP-RB Scorewas developed and its performance characteristics determinedby [employer]. It has not been cleared or approved by the Foodand Drug Administration.PATIENT WAS FASTINGPERFORMED BY: [facility] [address] [id number] BY: [employer] Jdgvhz6095 [facility] [id number] Lymphocytes (Bld) [#/Vol] 4.2 10*3/uL Abnormal 0.7-3.1 [facility]; [facility] Work Phone: Comment on above: Test(s) 676725-OIP-M ; 188948-IXZ-V; 417052-Ljvxnyrezhhbp; 493388-Pwokprndery, Total; 337166-DFC-M (Total); 553279-Anyoj LDL-P; 862533-QJE Size; 484748-JA-SQ Scorewas developed and its performance characteristics determinedby [employer]. It has not been cleared or approved by the Foodand Drug Administration.PATIENT WAS FASTINGPERFORMED BY: SpaceList[address] [id number] BY: [facility]BellCass [facility] Center [id number] Lymphocytes/100 WBC (Bld) 15 % Normal [facility] Work Phone: Comment on above: Test(s) 632596-YWV-U ; 094897-YQD-I; 658783-Axflnqbgcobih; 325179-Kzrakehfnxy, Total; 367965-HOB-E (Total); 820871-Vbxtl LDL-P; 189514-EHA Size; 902615-TJ-ED Scorewas developed and its performance characteristics determinedby [employer]. It has not been cleared or approved by the Foodand Drug Administration.PATIENT WAS FASTINGPERFORMED BY: [facility] [address] [id number] BY: SMGBB70 [facility] [id number] MCH (RBC) [Entitic mass] 30.3 pg Normal 26.6-33.0 [facility] Work Phone: Comment on above: Test(s) 317913-XRS-K ; 121796-BAG-I; 795411-Bcuwvcqsjsrcw; 591400-Bmrlezyiyjx, Total; 251645-CWX-Z (Total); 578724-Ifprq LDL-P; 471342-VSO Size; 889830-LE-NQ Scorewas developed and its performance characteristics determinedby [employer]. It has not been cleared or approved by the Foodand Drug Administration.PATIENT WAS FASTINGPERFORMED BY: [facility] [address] [id number] BY: Peg[employer] Imaging CorporationRobert Wood Johnson University HospitalWdanhe6421 [facility] [id number] MCHC (RBC) [Mass/Vol] 34.2 g/dL Normal 31.5-35.7 [facility]eren[facility] Internal Medicine Work Phone: Comment on above: Test(s) 205464-DRP-G ; 290653-XJN-F; 437564-Uifoombmxggei; 542153-Oucbosgxhlp, Total; 081983-CFM-H (Total); 792146-Brkqu LDL-P; 678511-VRJ Size; 105278-ZN-TL Scorewas developed and its performance characteristics determinedby [employer]. It has not been cleared or approved by the Foodand Drug Administration.PATIENT WAS FASTINGPERFORMED BY: [facility] [address] [id number] BY: [employer] Qnmxbp6102 [facility] [id number] MCV (RBC) [Entitic vol] 88 fL Normal 79-97 [facility] Internal Medicine Work Phone: Comment on above: Test(s) 090453-SLZ-S ; 385049-DLZ-D; 252260-Dgviriejjijga; 931173-Gmwlvrymwpd, Total; 621977-TCY-K (Total); 744335-Rmnuw LDL-P; 450833-AHA Size; 169390-CE-DR Scorewas developed and its performance characteristics determinedby [employer]. It has not been cleared or approved by the Foodand Drug Administration.PATIENT WAS FASTINGPERFORMED BY: [facility] [address] [id number] BY: ScalingDataRobert Wood Johnson University HospitalYjbzlx7953 [facility] [id number] Monocytes (Bld) [#/Vol] 2.0 {x10E3/uL} Abnormal 0.1-0.9 [facility] Work Phone: Comment on above: Test(s) 256220-TRX-X ; 639034-ZOT-P; 865401-Yplqkuqnponof; 277675-Ovttgqtpjkk, Total; 426646-LWP-X (Total); 290786-Wgimw LDL-P; 020806-LSQ Size; 940795-UL-SE Scorewas developed and its performance characteristics determinedby [employer]. It has not been cleared or approved by the Foodand Drug Administration.PATIENT WAS FASTINGPERFORMED BY: [facility] [address] [id number] BY: [employer] Wzmwyj6073 [facility] [id number] Monocytes (Bld) [#/Vol] 2.0 10*3/uL Abnormal 0.1-0.9 [facility]; [facility] Work Phone: Comment on above: Test(s) 440131-JRV-E ; 697009-SSQ-X; 644339-Wsjucaxjyyjlz; 471067-Lintviftqoc, Total; 914340-IUA-S (Total); 576077-Zqoss LDL-P; 456505-RBB Size; 572642-NT-MX Scorewas developed and its performance characteristics determinedby [employer]. It has not been cleared or approved by the Foodand Drug Administration.PATIENT WAS FASTINGPERFORMED BY: [facility] [address] [id number] BY: [employer]6370 [facility] [id number] Monocytes/100 WBC (Bld) 7 % Normal C [facility] daytonensive Internal Medicine Work Phone: Comment on above: Test(s) 387595-QES-S ; 296828-FVJ-M; 748987-Axftbmknmsoby; 604668-Iafpldnoeaw, Total; 075271-KYO-H (Total); 033294-Qaqnb LDL-P; 053190-NVL Size; 416509-LS-EY Scorewas developed and its performance characteristics determinedby [employer]. It has not been cleared or approved by the Foodand Drug Administration.PATIENT WAS FASTINGPERFORMED BY: [facility] [address] [id number] BY: [employer] Epmxxx1895 [facility] [id number] Morphology Miguel (Bld) [Interp] Note: Normal [facility] Work Phone: Comment on above: Manual differential was performed. Test(s) 996990-BFF-C ; 504245-INQ-I; 130972-Xumugrjuzeuiw; 151572-Kgxkqkqmafq, Total; 931205-FVS-A (Total); 449013-Adcal LDL-P; 015166-HSR Size; 667840-SY-BA Scorewas developed and its performance characteristics determinedby [employer]. It has not been cleared or approved by the Foodand Drug Administration.PATIENT WAS FASTINGPERFORMED BY: Space[employer] [id number] BY: [employer]6370 [facility] [id number] Neutrophils (Bld) [#/Vol] 15.5 {x10E3/uL} Abnormal 1.4-7.0 [facility] Work Phone: Comment on above: Test(s) 279737-WLQ-U ; 979368-MBC-W; 170700-Omzoekdmwaaai; 675242-Skjtkwsjmsx, Total; 359450-HFF-W (Total); 846095-Xknrc LDL-P; 253841-WLV Size; 945725-HG-LD Scorewas developed and its performance characteristics determinedby [employer]. It has not been cleared or approved by the Foodand Drug Administration.PATIENT WAS FASTINGPERFORMED BY: [facility] Glkaphakta5345 [facility][1] [id number] BY: Peg[employer] Imaging CorporationRobert Wood Johnson University HospitalVxkqvp6265 [facility] [id number] Neutrophils (Bld) [#/Vol] 15.5 10*3/uL Abnormal 1.4-7.0 [facility]; [facility] Work Phone: Comment on above: Test(s) 476649-XRJ-Y ; 940752-WNC-W; 042329-Mmavmbxwjgjca; 312038-Xxkwmxrfhdi, Total; 111644-FEY-J (Total); 359461-Djvsp LDL-P; 569052-PYO Size; 670122-NC-HD Scorewas developed and its performance characteristics determinedby [employer]. It has not been cleared or approved by the Foodand Drug Administration.PATIENT WAS FASTINGPERFORMED BY: [facility] [address] [id number] BY: SMGBB70 [facility] [id number] Neutrophils/100 WBC (Bld) 55 % Normal [facility] Work Phone: Comment on above: Test(s) 093617-IJM-M ; 947807-LNZ-H; 690338-Emtgrdzqbgbgs; 747097-Mpyqcodgcth, Total; 009578-PPP-K (Total); 855432-Fvuek LDL-P; 348992-JPB Size; 840845-GS-DD Scorewas developed and its performance characteristics determinedby [employer]. It has not been cleared or approved by the Foodand Drug Administration.PATIENT WAS FASTINGPERFORMED BY: [facility] [address] [id number] BY: SMGBB70 [facility] [id number] Platelets (Bld) [#/Vol] 209 {x10E3/uL} Normal 150-450 [facility] Work Phone: Comment on above: Test(s) 489150-YFO-I ; 049760-CAF-P; 541558-Xtbtdrhbgksqq; 014114-Fgdqrjqykyl, Total; 407699-KRE-V (Total); 231958-Ywdvk LDL-P; 106704-ZGA Size; 316094-FX-LC Scorewas developed and its performance characteristics determinedby [employer]. It has not been cleared or approved by the Foodand Drug Administration.PATIENT WAS FASTINGPERFORMED BY: [facility] [address] [id number] BY: SMGBB70 [facility] [id number] Platelets (Bld) [#/Vol] 209 10*3/uL Normal 150-450 [facility] Internal Medicine; [facility] Internal Medicine Work Phone: Comment on above: Test(s) 684615-NBL-M ; 568085-MKE-J; 930622-Bwanvbrykcjkw; 261139-Sozpfgnphda, Total; 640800-MRT-C (Total); 129054-Hkqxa LDL-P; 905430-KTS Size; 751347-IG-TZ Scorewas developed and its performance characteristics determinedby [employer]. It has not been cleared or approved by the Foodand Drug Administration.PATIENT WAS FASTINGPERFORMED BY: [employer] [place] [address] [id number] BY: SMGBB70 [facility] [id number] RBC (Bld) [#/Vol] 5.02 {x10E6/uL} Normal 4.14-5.80 [facility] Internal [facility] Work Phone: Comment on above: Test(s) 118795-IJC-G ; 812178-WXH-L; 823761-Koaakedrfwupg; 128442-Tfghzrxffzb, Total; 638785-OYF-J (Total); 920112-Iefdv LDL-P; 974515-TBW Size; 662848-RM-DC Scorewas developed and its performance characteristics determinedby [employer]. It has not been cleared or approved by the Foodand Drug Administration.PATIENT WAS FASTINGPERFORMED BY: SpaceListton1447 [facility][1] [id number] BY: [employer]6370 [facility] [id number] RBC (Bld) [#/Vol] 5.02 10*6/uL Normal 4.14-5.80 [facility] Internal Medicine; [facility] Internal Medicine Work Phone: Comment on above: Test(s) 280419-DHR-A ; 873534-DAL-B; 449294-Varbriqmwljti; 741406-Iofpjlknsad, Total; 901684-KFU-X (Total); 284188-Yrcrk LDL-P; 815197-HZS Size; 269251-US-FC Scorewas developed and its performance characteristics determinedby [employer]. It has not been cleared or approved by the Foodand Drug Administration.PATIENT WAS FASTINGPERFORMED BY: [employer] [address] [id number] BY: [employer] Rdbhop6083 [facility] [id number] WBC (Bld) [#/Vol] 28.1 {x10E3/uL} Abnormal 3.4-10.8 [facility] Internal Medicine Work Phone: Comment on above: Test(s) 729638-UGN-H ; 093285-FYH-I; 658421-Fbmmetqcgajgd; 589330-Ppudxpnaxtt, Total; 417179-CKM-S (Total); 930701-Tvmfp LDL-P; 599080-NRC Size; 620597-ZD-DG Scorewas developed and its performance characteristics determinedby [employer]. It has not been cleared or approved by the Foodand Drug Administration.PATIENT WAS FASTINGPERFORMED BY: [employer] Spzmcmodly[address] [id number] BY: Pegasus Imaging Corporationrp Xfuvhg7789 [facility] [id number] WBC (Bld) [#/Vol] 28.1 10*3/uL Abnormal 3.4-10.8 [facility] Internal Medicine; [facility] Internal Medicine Work Phone: Comment on above: Test(s) 846345-MSD-Y ; 989649-DMG-E; 496035-Ucyggcridzsac; 075046-Wfeqpuascxx, Total; 853279-RGO-K (Total); 053797-Lslxt LDL-P; 977883-RHG Size; 728318-UC-RR Scorewas developed and its performance characteristics determinedby [employer]. It has not been cleared or approved by the Foodand Drug Administration.PATIENT WAS FASTINGPERFORMED BY: [employer] LabPIE Softwarerp [address] [id number] BY: Lab[employer]E Softwarerp Eoqqjy3201 [facility] [id number] METABOLIC PANEL, COMPREHENSI VE (11152)Ordered By: Calliope Player on 04-26-2020 Albumin [Mass/Vol] 4.3 g/dL Normal 3.8-4.9 [facility] Internal Medicine Work Phone: Comment on above: Test(s) 979146-LAR-P ; 638240-EEH-Y; 531717-Rgnbkgtgzhrct; 309747-Ylyiwudwlps, Total; 552379-ZCH-U (Total); 509142-Eofmp LDL-P; 788337-BFQ Size; 131719-GU-FC Scorewas developed and its performance characteristics determinedby [employer]. It has not been cleared or approved by the Foodand Drug Administration.PATIENT WAS FASTINGPERFORMED BY: SpaceList[address] [id number] BY: SMGBB70 adQUNC [facility] Chatham [id number] Albumin/Globulin [Mass ratio] 1.6 {ratio} Normal 1.2-2.2 [facility] Internal Medicine Work Phone: Comment on above: Test(s) 258599-TSP-V ; 482974-OFS-W; 881657-Tcnnisimvatws; 291146-Zfakmcycdce, Total; 945738-UFA-O (Total); 768289-Fsttv LDL-P; 334745-PKT Size; 372982-WH-FW Scorewas developed and its performance characteristics determinedby [employer]. It has not been cleared or approved by the Foodand Drug Administration.PATIENT WAS FASTINGPERFORMED BY: SpaceList[address] [id number] BY: [employer]6370 [facility] [id number] ALP [Catalytic activity/Vol] 79 [iU]/L Normal 39-117 [facility] Work Phone: Comment on above: Test(s) 470757-KHE-N ; 763611-DMH-A; 188440-Hntosjaaddgaa; 394417-Uiqomfmbwpe, Total; 629542-AZX-V (Total); 223938-Lrzpp LDL-P; 610420-SCF Size; 294162-SS-JL Scorewas developed and its performance characteristics determinedby [employer]. It has not been cleared or approved by the Foodand Drug Administration.PATIENT WAS FASTINGPERFORMED BY: [employer] [id number] BY: Peg[employer] Imaging CorporationRobert Wood Johnson University HospitalFezxxt4980 [facility] [id number] ALP [Catalytic activity/Vol] 79 U/L Normal 39-117 [facility]; [facility] Work Phone: Comment on above: Test(s) 229042-EVB-F ; 825490-SLE-G; 138311-Bvulutabniosg; 340685-Kdevxoqeiuc, Total; 402257-BPA-M (Total); 365646-Mwjyp LDL-P; 297689-NKW Size; 748691-DY-HE Scorewas developed and its performance characteristics determinedby [employer]. It has not been cleared or approved by the Foodand Drug Administration.PATIENT WAS FASTINGPERFORMED BY: [employer] [address] [id number] BY: [employer] Nngmro1386 [facility] [id number] ALT [Catalytic activity/Vol] 29 [iU]/L Normal 0-44 [facility] Internal Medicine Work Phone: Comment on above: Test(s) 254991-XYN-C ; 179529-ZEL-Y; 511909-Nchmhcemmepqr; 980711-Lcynkglkekh, Total; 170977-ALT-Q (Total); 195997-Krsig LDL-P; 114182-SZM Size; 383985-FM-IC Scorewas developed and its performance characteristics determinedby [employer]. It has not been cleared or approved by the Foodand Drug Administration.PATIENT WAS FASTINGPERFORMED BY: [employer] [id number] BY: [employer] Imaging CorporationRobert Wood Johnson University HospitalIpbhto2515 [facility] [id number] ALT [Catalytic activity/Vol] 29 U/L Normal 0-44 [facility]; [facility] Work Phone: Comment on above: Test(s) 403557-IVQ-O ; 675246-MNY-R; 234409-Smvpissocebsl; 709964-Fadbvcvpfyo, Total; 375403-VYE-K (Total); 172560-Jtddc LDL-P; 986686-VVU Size; 090447-IM-OK Scorewas developed and its performance characteristics determinedby [employer]. It has not been cleared or approved by the Foodand Drug Administration.PATIENT WAS FASTINGPERFORMED BY: [facility] [address] [id number] BY: SMGBB70 [facility] [id number] AST [Catalytic activity/Vol] 22 [iU]/L Normal 0-40 [facility] Internal Medicine Work Phone: Comment on above: Test(s) 126046-WNG-S ; 232864-BOY-B; 837863-Qykfwvaetyyby; 955495-Sypinueispp, Total; 683733-PKZ-V (Total); 454764-Womfr LDL-P; 686333-FNL Size; 066257-BY-OI Scorewas developed and its performance characteristics determinedby [employer]. It has not been cleared or approved by the Foodand Drug Administration.PATIENT WAS FASTINGPERFORMED BY: [facility] [address] [id number] BY: [place] [employer] Mqlstx5661 [facility] [id number] AST [Catalytic activity/Vol] 22 U/L Normal 0-40 [facility]; [facility] Work Phone: Comment on above: Test(s) 305566-YEQ-K ; 098447-ALV-K; 734635-Kvcekwvthnwvl; 970866-Hamkdjlutzr, Total; 756359-QQC-J (Total); 290421-Mkqec LDL-P; 157869-KFW Size; 105268-OD-DE Scorewas developed and its performance characteristics determinedby [employer]. It has not been cleared or approved by the Foodand Drug Administration.PATIENT WAS FASTINGPERFORMED BY: [facility] [address] [id number] BY: [employer] Fwlgiq4489 [facility] [id number] Bilirubin [Mass/Vol] 0.4 mg/dL Normal 0.0-1.2 [facility] Internal [facility] Work Phone: Comment on above: Test(s) 014908-XKG-I ; 390957-FWA-X; 134077-Tzvkmzyfplbip; 526804-Ydemwfgkehe, Total; 503161-ION-N (Total); 258500-Dgzky LDL-P; 261886-OHM Size; 763032-YA-SQ Scorewas developed and its performance characteristics determinedby [employer]am[employer]. It has not been cleared or approved by the Foodand Drug Administration.PATIENT WAS FASTINGPERFORMED BY: SpaceList[address] [id number] BY: [employer]6370 [facility] [id number] Calcium [Mass/Vol] 9.2 mg/dL Normal 8.7-10.2 [facility] Internal [facility] Work Phone: Comment on above: Test(s) 381761-XJL-I ; 403075-XMU-N; 510119-Txlnvraprkyof; 498682-Qggqoqxonup, Total; 948506-AAA-H (Total); 410837-Vliok LDL-P; 149164-XHR Size; 212406-ZT-GW Scorewas developed and its performance characteristics determinedby [employer]. It has not been cleared or approved by the Foodand Drug Administration.PATIENT WAS FASTINGPERFORMED BY: [facility] [address] [id number] BY: Peg[employer] Imaging CorporationRobert Wood Johnson University HospitalOkabfa6750 [facility] [id number] Chloride [Moles/Vol] 104 mmol/L Normal 96-106 [facility] Internal [facility] Work Phone: Comment on above: Test(s) 838017-BLZ-N ; 725139-UAV-K; 401453-Pkosqllvturvh; 209878-Icxcxvkuzxd, Total; 290492-VNQ-V (Total); 498642-Nvnqe LDL-P; 164277-UYT Size; 010412-LG-IK Scorewas developed and its performance characteristics determinedby [employer]. It has not been cleared or approved by the Foodand Drug Administration.PATIENT WAS FASTINGPERFORMED BY: [facility] [address] [id number] BY: SMGBB70 [place] MergeLocalUNC Health Chatham [id number] CO2 [Moles/Vol] 25 mmol/L Normal 20-29 [facility] Internal Medicine Work Phone: Comment on above: Test(s) 831486-TWK-G ; 575427-WNB-C; 873786-Ennvrwkocytvn; 043232-Wliidjzyuys, Total; 331977-QIA-E (Total); 173558-Lgipf LDL-P; 670184-CSY Size; 492152-QF-EQ Scorewas developed and its performance characteristics determinedby [employer]. It has not been cleared or approved by the Foodand Drug Administration.PATIENT WAS FASTINGPERFORMED BY: [facility] [address] [id number] BY: SMGBB70 adQUNC Health Chatham [id number] Creatinine [Mass/Vol] 0.84 mg/dL Normal 0.76-1.27 [facility] Internal Medicine Work Phone: Comment on above: Test(s) 148112-VGV-E ; 203209-HMX-D; 922558-Bkjrqrbwbnnsp; 282754-Fpblezppzlx, Total; 236353-QER-U (Total); 447968-Majcm LDL-P; 465203-VMD Size; 365868-WB-PL Scorewas developed and its performance characteristics determinedby [employer]am[employer]. It has not been cleared or approved by the Foodand Drug Administration.PATIENT WAS FASTINGPERFORMED BY: [facility] [address] [id number] BY: [employer]6370 [facility] [id number] GFR/1.73 sq M predicted among blacks CKD-EPI (S/P/Bld) [Vol rate/Area] 111 mL/min/1.73 Normal [facility] Work Phone: Comment on above: Test(s) 179611-BCZ-X ; 535719-RQW-M; 750857-Cvxlnutmpzmko; 666182-Skjwxejywgv, Total; 571979-WDO-H (Total); 304433-Mibll LDL-P; 215987-TDS Size; 721105-BF-OO Scorewas developed and its performance characteristics determinedby [employer]. It has not been cleared or approved by the Foodand Drug Administration.PATIENT WAS FASTINGPERFORMED BY: SpaceList[address] [id number] BY: [employer] [facility] [id number] GFR/1.73 sq M predicted among non-blacks CKD-EPI (S/P/Bld) [Vol rate/Area] 96 mL/min/1.73 Normal [facility] Work Phone: Comment on above: Test(s) 378322-UKX-K ; 404744-BNT-X; 354509-Fagxspilheaag; 206489-Zzxcxhicxjb, Total; 491396-LWL-Q (Total); 729665-Holqz LDL-P; 440866-TIA Size; 537796-PD-XP Scorewas developed and its performance characteristics determinedby [employer]. It has not been cleared or approved by the Foodand Drug Administration.PATIENT WAS FASTINGPERFORMED BY: [facility] [address] [id number] BY: SMGBB70 [facility] [id number] Globulin (S) [Mass/Vol] 2.7 g/dL Normal 1.5-4.5 [facility] Internal Medicine Work Phone: Comment on above: Test(s) 396097-BBJ-W ; 650702-XXR-L; 630101-Fzovmrkngpkpb; 032427-Nbqrgmeynhd, Total; 995710-PDF-Y (Total); 940025-Kbcbg LDL-P; 703066-LVK Size; 678553-JZ-TW Scorewas developed and its performance characteristics determinedby [employer]. It has not been cleared or approved by the Foodand Drug Administration.PATIENT WAS FASTINGPERFORMED BY: [facility] [address] [id number] BY: [employer] Xseyhs8626 [facility] [id number] Glucose [Mass/Vol] 116 mg/dL Abnormal 65-99 [facility] Internal Medicine Work Phone: Comment on above: Test(s) 066304-WIG-P ; 358309-XOK-J; 837271-Sfbabmnqucwby; 291553-Xokocagyahp, Total; 679939-WEO-J (Total); 838533-Utavk LDL-P; 354440-GJM Size; 590964-ZF-LP Scorewas developed and its performance characteristics determinedby [employer]am[employer]. It has not been cleared or approved by the Foodand Drug Administration.PATIENT WAS FASTINGPERFORMED BY: [facility] [address] [id number] BY: [employer]6370 [place] NameMediaGood Hope Hospital [id number] Potassium [Moles/Vol] 4.5 mmol/L Normal 3.5-5.2 [facility] Internal Medicine Work Phone: Comment on above: Test(s) 477759-LEM-F ; 873092-ECJ-B; 592974-Haeuwikcbanpu; 180590-Uzdduamtiil, Total; 112883-RIV-X (Total); 127226-Cowlc LDL-P; 528905-HVV Size; 003598-QC-CW Scorewas developed and its performance characteristics determinedby [employer]am[employer]. It has not been cleared or approved by the Foodand Drug Administration.PATIENT WAS FASTINGPERFORMED BY: [facility] [address] [id number] BY: [place] [employer] Ioziao7074 [facility] [id number] Protein [Mass/Vol] 7.0 g/dL Normal 6.0-8.5 [facility] Internal Medicine Work Phone: Comment on above: Test(s) 039361-KGY-L ; 845892-UXA-L; 548965-Bqmfhsxafuhrq; 633038-Fmsmyfuitmj, Total; 278221-ZIL-Q (Total); 374578-Dqebj LDL-P; 287554-IGQ Size; 476585-NZ-TW Scorewas developed and its performance characteristics determinedby [employer]. It has not been cleared or approved by the Foodand Drug Administration.PATIENT WAS FASTINGPERFORMED BY: SpaceList[address] [id number] BY: SMGBB70 [facility] [id number] Sodium [Moles/Vol] 143 mmol/L Normal 134-144 [facility] Internal Medicine Work Phone: Comment on above: Test(s) 262172-HAM-E ; 164403-DTR-W; 894556-Nerfpfjzggcry; 799170-Jxtkrovddff, Total; 275727-DMC-F (Total); 834869-Tcoyd LDL-P; 738140-KSX Size; 398265-PD-OY Scorewas developed and its performance characteristics determinedby Stam[employer]. It has not been cleared or approved by the Foodand Drug Administration.PATIENT WAS FASTINGPERFORMED BY: SpaceList[address] [id number] BY: [employer]6370 [facility] [id number] Urea nitrogen [Mass/Vol] 11 mg/dL Normal 6-24 [facility] Internal Medicine Work Phone: Comment on above: Test(s) 824837-MGH-U ; 076540-YAC-U; 116464-Biqzqgajadfqn; 682946-Wjkyywswsxu, Total; 640380-NRV-L (Total); 748181-Ofhcn LDL-P; 336774-CAE Size; 344277-ZH-OX Scorewas developed and its performance characteristics determinedby [employer]am[employer]. It has not been cleared or approved by the Foodand Drug Administration.PATIENT WAS FASTINGPERFORMED BY: SpaceList[address] [id number] BY: [employer]6370 G-Innovator Research & CreationGood Hope Hospital [id number] Urea nitrogen/Creatinine [Mass ratio] 13 mg/mg Normal 9-20 [facility] Work Phone: Comment on above: Test(s) 889135-NCA-F ; 831749-OTE-N; 330191-Uukdryuguyohi; 901236-Fwahulwjszk, Total; 151494-BBW-J (Total); 198671-Cjjgp LDL-P; 683769-RHI Size; 261352-VD-QJ Scorewas developed and its performance characteristics determinedby [employer]am[employer]. It has not been cleared or approved by the Foodand Drug Administration.PATIENT WAS FASTINGPERFORMED BY: SpaceList[address] [id number] BY: SoftWriters HoldingsGood Hope Hospital [id number] MICROALBUMINOrdered By: Syst em Horse Rancher on 04-26-2020 Albumin DL <= 20 mg/L (U) [Mass/Vol] 8.7 ug/mL Normal [facility] Work Phone: Comment on above: Test(s) 901186-HOG-Y ; 196748-BHF-Y; 630791-Ysbfpgnviwrrk; 380152-Ywsiyspawsv, Total; 316406-LGK-O (Total); 270277-Ksisa LDL-P; 092644-SEK Size; 465632-KU-IZ Scorewas developed and its performance characteristics determinedby [employer]am[employer]. It has not been cleared or approved by the Foodand Drug Administration.PATIENT WAS FASTINGPERFORMED BY: SpaceList[address] [id number] BY: SMGBB70 [place] MergeLocalUNC Health [facility] [id number] Albumin/Creatinine (U) [Mass ratio] 7 {mg/g_creat} Normal 0-29 [facility] Work Phone: Comment on above: Normal: 0 - 29 Moder ately increased: 30 - 300 Severely increased: >300 Please note reference interval change Test(s) 512375-HHA-Y ; 263697-TEV-Q; 778309-Vwcumujvspzrh; 151668-Scdtbmrnsyt, Total; 959975-NQD-H (Total); 526706-Tydrg LDL-P; 793780-NEI Size; 777392-MQ-ZQ Scorewas developed and its performance characteristics determinedby Stam[employer]. It has not been cleared or approved by the Foodand Drug Administration.PATIENT WAS FASTINGPERFORMED BY: SpaceList[address] [id number] BY: [place] [employer] Rkijup5808 [facility] [id number] Creatinine (U) [Mass/Vol] 121.5 mg/dL Normal [facility] Work Phone: Comment on above: Test(s) 646826-XDA-I ; 972619-TTY-U; 561424-Awavvheevqifv; 837935-Mfwjgngrcbn, Total; 534729-IDF-B (Total); 843234-Qkcmq LDL-P; 525820-VCW Size; 368022-SK-WH Scorewas developed and its performance characteristics determinedby Stam[employer]. It has not been cleared or approved by the Foodand Drug Administration.PATIENT WAS FASTINGPERFORMED BY: [facility] [address] [id number] BY: [place] [employer] Rgckvq7575 [facility] [id number] NMR Profile (05429)Ordered B y: Calliope Player on 04-26-2020 Cholesterol [Mass/Vol] 142 mg/dL Normal 100-199 [facility] Internal Medicine Work Phone: Comment on above: Test(s) 621117-YBC-Q ; 396377-RRH-U; 313507-Frifvxyeeepdn; 464732-Pklmfwckbxm, Total; 309591-KBK-X (Total); 310359-Dqunu LDL-P; 891019-VPD Size; 345105-ZM-BN Scorewas developed and its performance characteristics determinedby [employer]am[employer]. It has not been cleared or approved by the Foodand Drug Administration.PATIENT WAS FASTINGPERFORMED BY: BN [facility] [address] [place] [id number] BY: Peg[employer] Imaging CorporationRobert Wood Johnson University HospitalKuyijq3404 [facility] [id number] Lipoprotein.alpha [Moles/Vol] 31.2 umol/L Normal [facility] Work Phone: Comment on above: Test(s) 846507-ZQT-C ; 370310-IOM-M; 018726-Pbmvibdzrwdmp; 760536-Ehfaholbytf, Total; 483177-EGH-U (Total); 203737-Uuhvg LDL-P; 105607-ECG Size; 232174-IW-IF Scorewas developed and its performance characteristics determinedby [employer]. It has not been cleared or approved by the Foodand Drug Administration.PATIENT WAS FASTINGPERFORMED BY: [employer] [id number] BY: [employer] Imaging CorporationRobert Wood Johnson University HospitalWdbxvg6882 [facility] [id number] Lipoprotein.beta.subpar ticle [Entitic length] 19.6 nm Abnormal [facility] Internal Medicine Work Phone: Comment on above: INTERPRETATIVE INFORMATION PARTICLE CONCENTRATION AND SIZE <--Lower CVD Risk Higher CVD Risk--> LDL AND HDL PARTICLES Percentile in Reference Population HDL-P (total) High 75th 50th 25th Low >34.9 34.9 30.5 26.7 <26.7 . Small LDL-P Low 25th 50th 75th High <117 117 527 839 >839 . LDL Size <-Large (Pattern A)-> <-Small (Pattern B)-> 23.0 20.6 20.5 19.0 Smal l LDL-P and LDL Size are associated with CVD risk, but not afterLDL-P is taken into account. Test(s) 036192-BKU-M ; 347263-KPJ-U; 124758-Qyidhqotbobez; 301611-Abjefmzzltw, Total; 581575-ZPH-V (Total); 258964-Iilsl LDL-P; 279077-YWZ Size; 349244-BC-QT Scorewas developed and its performance characteristics determinedby [employer]am[employer]. It has not been cleared or approved by the Foodand Drug Administration.PATIENT WAS FASTINGPERFORMED BY: [facility] [address] [id number] BY: SMGBB70 G-Innovator Research & CreationGood Hope Hospital [id number] Lipoprotein.beta.subpar ticle [Moles/Vol] 711 nmol/L Normal [facility] Work Phone: Comment on above: Low < 1000 Moderate 1000 - 1299 Borderline-High 1300 - 1599 High 1600 - 2000 Very High > 2000 Test(s) 897705-WYV-T ; 434479-NUP-Z; 562188-Nrdkeqrcuezow; 612666-Yjvorwykoho, Total; 362162-UZD-O (Total); 999542-Jukby LDL-P; 025457-ISO Size; 351416-ML-UE Scorewas developed and its performance characteristics determinedby [employer]am[employer]. It has not been cleared or approved by the Foodand Drug Administration.PATIENT WAS FASTINGPERFORMED BY: [facility] [address] [id number] BY: [employer]6370 [place] NameMediaGood Hope Hospital [id number] Lipoprotein.beta.subpar ticle.small [Moles/Vol] 545 nmol/L Abnormal Comprehe nsive Internal Medicine Work Phone: Comment on above: Test(s) 664392-WEH-H ; 821304-OGF-S; 430629-Zhexgigjtqalc; 762193-Qciveagxhre, Total; 724546-GZG-D (Total); 120590-Lluoh LDL-P; 996375-RBK Size; 979110-YC-DQ Scorewas developed and its performance characteristics determinedby [employer]. It has not been cleared or approved by the Foodand Drug Administration.PATIENT WAS FASTINGPERFORMED BY: [facility] [address] [id number] BY: [employer] Imaging CorporationInscription House Health CenterZdnjyq7522 [facility] [id number] Triglyceride [Mass/Vol] 326 mg/dL Abnormal 0-149 [facility] centerensive Internal Medicine Work Phone: Comment on above: Test(s) 187234-AQR-X ; 830646-PQX-S; 589252-Nggoqcwxqbpeq; 785624-Rkygngridoc, Total; 967863-XIU-E (Total); 659746-Hltmk LDL-P; 363028-SSE Size; 551366-CW-JM Scorewas developed and its performance characteristics determinedby [employer]. It has not been cleared or approved by the Foodand Drug Administration.PATIENT WAS FASTINGPERFORMED BY: [facility] [address] [id number] BY: [employer]6370 [facility] [id number] NMR Profile (10420) 37 mg/dL Abnormal [facility] Internal Medicine Work Phone: Comment on above: Test(s) 970124-AKO-S ; 016580-MDP-P; 017283-Czckfnfsvmtvw; 433848-Guomjuqnubt, Total; 236999-QBH-X (Total); 884520-Gtmud LDL-P; 892673-KAG Size; 647802-QZ-ID Scorewas developed and its performance characteristics determinedby [employer]. It has not been cleared or approved by the Foodand Drug Administration.PATIENT WAS FASTINGPERFORMED BY: [facility] [address] [id number] BY: ScalingDataRobert Wood Johnson University HospitalCmirkh9776 [facility] [id number] NMR Profile (15222) 55 mg/dL Normal 0-99 Compr [facility] Internal Medicine Work Phone: Comment on above: . Optimal < 100 Abov e optimal 100 - 129 Borderline 130 - 159 High 160 - 189 Very high > 189 . Test(s) 460608-TDK-P ; 148206-AJS-P; 136088-Atflspcgmfplr; 374727-Rqujkwbplwk, Total; 892811-GVZ-Z (Total); 758358-Kvoka LDL-P; 285722-FSC Size; 352647-QW-GY Scorewas developed and its performance characteristics determinedby [employer]. It has not been cleared or approved by the Foodand Drug Administration.PATIENT WAS FASTINGPERFORMED BY: SpaceList[address] [id number] BY: MobimUNC Health Chatham [id number] NMR Profile (75717) 326 mg/dL Abnormal 0-149 Compr ehensive Internal Medicine; [facility] Work Phone: NMR Profile (70566) 142 mg/dL Normal 100-199 Compr ehensive Internal Medicine; [facility] Work Phone: TSH ([id number])Ordered By: Diassess Horse Rancher on 04-26-2020 TSH Qn 2.490 {uIU/mL} Normal 0.450-4.50 0 [facility] Work Phone: Comment on above: Test(s) 754741-TKC-P ; 539850-MCD-P; 982864-Isspgmrytwrpw; 359595-Cexsbcvqjhs, Total; 660118-PCL-Z (Total); 359128-Iwmsf LDL-P; 024548-NAA Size; 738809-GM-TO Scorewas developed and its performance characteristics determinedby [employer]am[employer]. It has not been cleared or approved by the Foodand Drug Administration.PATIENT WAS FASTINGPERFORMED BY: [facility] [address] [id number] BY: SMGBB70 [facility]Cass [facility] Center [id number] URINALYSIS, W/ MICRO (44797) Ordered By: Calliope Player on 04-26-2020 Appearance (U) Clear Normal Comprehens arianna Internal Medicine Work Phone: Comment on above: Test(s) 335019-GQH-D ; 427899-EOO-G; 710604-Ppilisjljpugu; 896857-Xhxvyqmfjzs, Total; 107957-SJS-X (Total); 635137-Zphwl LDL-P; 751546-SZQ Size; 741321-EA-GE Scorewas developed and its performance characteristics determinedby [employer]. It has not been cleared or approved by the Foodand Drug Administration.PATIENT WAS FASTINGPERFORMED BY: [facility] [address] [id number] BY: [employer]70 [facility] [id number] Bilirubin Ql (U) Negative Normal Comprehe nsive Internal Medicine Work Phone: Comment on above: Test(s) 252657-BSF-D ; 630761-PRZ-O; 865979-Swuvmdearmjvm; 775580-Dbhgxcxuujw, Total; 064907-KRZ-B (Total); 850254-Nnlsl LDL-P; 462170-ATU Size; 507359-HO-KZ Scorewas developed and its performance characteristics determinedby [employer]am[employer]. It has not been cleared or approved by the Foodand Drug Administration.PATIENT WAS FASTINGPERFORMED BY: [facility] [address] [id number] BY: SMGBB70 [facility] [id number] Bilirubin Ql (U) Negative Normal Comprehe nsive Internal Medicine; [facility] Work Phone: Comment on above: Test(s) 251578-IOE-O ; 960345-GPA-K; 717497-Syersywywyyjb; 008282-Pmeextluran, Total; 871745-YQZ-P (Total); 316376-Smale LDL-P; 100751-FCD Size; 065591-ZN-UP Scorewas developed and its performance characteristics determinedby [employer]. It has not been cleared or approved by the Foodand Drug Administration.PATIENT WAS FASTINGPERFORMED BY: [facility] [address] [id number] BY: SMGBB70 [facility] [id number] Color (U) Yellow Normal [facility] Work Phone: Comment on above: Test(s) 195437-GXJ-Y ; 653799-ZIT-I; 100081-Slnashqedqbdd; 700840-Xuvyvelfjrn, Total; 019419-GKJ-P (Total); 524506-Iqgdo LDL-P; 046406-BBF Size; 251446-XF-ZS Scorewas developed and its performance characteristics determinedby [employer]. It has not been cleared or approved by the Foodand Drug Administration.PATIENT WAS FASTINGPERFORMED BY: [facility] [address] [id number] BY: Peg[employer] Imaging CorporationRobert Wood Johnson University HospitalMfuaez0774 [facility] [id number] Glucose Ql (U) Negative Normal Comprehens arianna Internal Medicine Work Phone: Comment on above: Test(s) 827213-GLS-I ; 699363-NXQ-N; 979983-Klezsdvztxfpy; 273261-Cpibwtdmeaz, Total; 582495-FAI-L (Total); 616881-Nattj LDL-P; 706644-YLS Size; 821428-TY-QN Scorewas developed and its performance characteristics determinedby [employer]. It has not been cleared or approved by the Foodand Drug Administration.PATIENT WAS FASTINGPERFORMED BY: [facility] [address] [id number] BY: Peg[employer] Imaging CorporationRobert Wood Johnson University HospitalDwripp3121 [facility] [id number] Glucose Ql (U) Negative Normal Comprehens arianna Internal Medicine; [facility] Work Phone: Comment on above: Test(s) 567984-BGU-M ; 479629-ZAP-L; 405588-Byhvqbjtgryjm; 675247-Wwtchjeocyj, Total; 116983-GLL-P (Total); 187315-Ifzzi LDL-P; 701664-BBZ Size; 842873-TY-UW Scorewas developed and its performance characteristics determinedby Stam[employer]. It has not been cleared or approved by the Foodand Drug Administration.PATIENT WAS FASTINGPERFORMED BY: Gloss48Co[address] [id number] BY: Peg[employer] Imaging CorporationMorgan Ville 9235970 [facility] [id number] Hemoglobin Ql (U) Negative Normal Compreh ensive Internal Medicine Work Phone: Comment on above: Test(s) 786080-CVI-S ; 921053-UPQ-L; 660308-Qejbtipjqbrpt; 242534-Rvplgrzfcnu, Total; 100943-TUK-G (Total); 845403-Zfkan LDL-P; 161380-FJU Size; 210853-DG-OQ Scorewas developed and its performance characteristics determinedby [employer]. It has not been cleared or approved by the Foodand Drug Administration.PATIENT WAS FASTINGPERFORMED BY: [facility] [address] [id number] BY: Peg[employer] Imaging CorporationMorgan Ville 9235970 [facility] [id number] Hemoglobin Ql (U) Negative Normal Compreh ensive Internal Medicine; [facility] Work Phone: Comment on above: Test(s) 634833-AFI-X ; 223842-ANO-M; 860070-Jaixnfcnxxgye; 051826-Zhinbxcadzz, Total; 399534-CPC-V (Total); 208229-Pfikb LDL-P; 013703-IPT Size; 805459-IM-PL Scorewas developed and its performance characteristics determinedby [employer]. It has not been cleared or approved by the Foodand Drug Administration.PATIENT WAS FASTINGPERFORMED BY: [employer] Corporation[address] [id number] BY: [facility] Memorial HospitalPIE SoftwareRobert Wood Johnson University HospitalDfoqpe5055 [facility] [id number] Ketones Ql (U) Negative Normal Comprehens arianna Internal Medicine Work Phone: Comment on above: Test(s) 616503-JEQ-D ; 642217-LNF-Y; 663736-Fairuksymitvt; 140696-Gallevayqly, Total; 276823-CTI-I (Total); 338334-Rlmsx LDL-P; 982723-XTV Size; 814432-TU-OC Scorewas developed and its performance characteristics determinedby [employer]. It has not been cleared or approved by the Foodand Drug Administration.PATIENT WAS FASTINGPERFORMED BY: [facility] [address] [id number] BY: [employer] Jzuuff[address] MergeLocalUNC Health Chatham [id number] Ketones Ql (U) Negative Normal Comprehens [facility] Internal Medicine; [facility] Work Phone: Comment on above: Test(s) 172846-QEY-E ; 461287-OVE-F; 640722-Ooszjorahaqbf; 463313-Ampjmnawubb, Total; 272408-OJI-D (Total); 165586-Ripay LDL-P; 359348-EXL Size; 590080-SB-GB Scorewas developed and its performance characteristics determinedby [employer]. It has not been cleared or approved by the Foodand Drug Administration.PATIENT WAS FASTINGPERFORMED BY: SpaceList[address] [id number] BY: [employer]6370 G-[employer] Research [facility] CreationGood Hope Hospital [id number] Leukocyte esterase Test strip Ql (U) Negative Normal [facility] Work Phone: Comment on above: Test(s) 751576-AKN-M ; 441712-RLT-K; 636643-Imuajdxonahzn; 253647-Ppezkpiufst, Total; 041406-QHW-E (Total); 101711-Tgfpw LDL-P; 263276-XDB Size; 838394-LJ-NF Scorewas developed and its performance characteristics determinedby [employer]. It has not been cleared or approved by the Foodand Drug Administration.PATIENT WAS FASTINGPERFORMED BY: [facility] [address] [id number] BY: [employer]6370 adQUNC Health [facility] [id number] Leukocyte esterase Test strip Ql (U) Negative Normal [facility]; [facility] Work Phone: Comment on above: Test(s) 627168-LOC-V ; 943985-TAH-N; 470626-Jegvhtfpjcxsx; 938748-Hdbdupqpvzx, Total; 220316-QUY-H (Total); 883869-Raoaf LDL-P; 104404-DCR Size; 564618-WH-VY Scorewas developed and its performance characteristics determinedby [employer]. It has not been cleared or approved by the Foodand Drug Administration.PATIENT WAS FASTINGPERFORMED BY: [facility] [address] [id number] BY: [employer] Hyjdsn4804 [facility] [id number] Microscopic observation LM Nom (Urine sed) MICRON Normal [facility] Work Phone: Comment on above: Microscopic follows if indicated. Test(s) 223303-KNJ-R ; 347317-NCY-L; 543422-Qldmbidxdtxhx; 214972-Segmkfnqkfd, Total; 573748-NDL-K (Total); 479293-Lvoni LDL-P; 673395-TMG Size; 152933-SJ-KP Scorewas developed and its performance characteristics determinedby [employer]. It has not been cleared or approved by the Foodand Drug Administration.PATIENT WAS FASTINGPERFORMED BY: [facility] [address] [id number] BY: [employer] Mikofd0998 [facility] [id number] Microscopic observation LM Nom (Urine sed) See below: Normal [facility] Work Phone: Comment on above: Microscopic was lynnette cated and was performed. Test(s) 613442-WVG-G ; 095188-CJS-U; 562317-Clnbrtmiwgszp; 948227-Xifkyvwoopc, Total; 290645-BFM-Q (Total); 208514-Rxbnw LDL-P; 997590-LGH Size; 386054-GL-JF Scorewas developed and its performance characteristics determinedby [employer]. It has not been cleared or approved by the Foodand Drug Administration.PATIENT WAS FASTINGPERFORMED BY: [facility] [address] [id number] BY: [employer] Zcoaen8557 [facility] [id number] Nitrite Ql (U) Negative Normal Comprehens arianna Internal Medicine Work Phone: Comment on above: Test(s) 345550-TZN-I ; 292921-FLQ-L; 178370-Fshugrfwwwywm; 194440-Mhbtlusrmun, Total; 197174-YDN-Z (Total); 359658-Ejats LDL-P; 186556-ZMN Size; 203537-HU-QE Scorewas developed and its performance characteristics determinedby [employer]. It has not been cleared or approved by the Foodand Drug Administration.PATIENT WAS FASTINGPERFORMED BY: [facility] [address] [id number] BY: [employer] Londeo2727 [facility] [id number] Nitrite Ql (U) Negative Normal Comprehens arianna Internal Medicine; [facility] Work Phone: Comment on above: Test(s) 796299-VIS-W ; 853153-VHK-V; 405938-Vppaxrmuywhld; 955158-Xepqwbiiedb, Total; 356931-HUB-C (Total); 450706-Cmeii LDL-P; 756077-WWM Size; 376656-SM-PM Scorewas developed and its performance characteristics determinedby [employer]. It has not been cleared or approved by the Foodand Drug Administration.PATIENT WAS FASTINGPERFORMED BY: [facility] [address] [id number] BY: [employer] Imaging CorporationRobert Wood Johnson University HospitalPcnjlq0101 [facility] [id number] pH (U) 8.0 [pH] Abnormal 5.0-7.5 [facility] Work Phone: Comment on above: Test(s) 628131-JXH-W ; 226969-CGU-T; 335332-Xwcztwbggfuyw; 992554-Atvjwsjvvec, Total; 473831-TQQ-M (Total); 328967-Zrpha LDL-P; 903600-ITP Size; 999358-WN-BN Scorewas developed and its performance characteristics determinedby [employer]. It has not been cleared or approved by the Foodand Drug Administration.PATIENT WAS FASTINGPERFORMED BY: [facility] [address] [id number] BY: [employer] Bnoqkp7083 [facility] [id number] Protein Ql (U) Negative Normal Comprehens arianna Internal Medicine Work Phone: Comment on above: Test(s) 406535-EJQ-J ; 551124-UUJ-V; 826044-Gnemshkgmnjfr; 839621-Sgeijaxxqjk, Total; 799226-MBE-B (Total); 878237-Ltpjz LDL-P; 236675-XOW Size; 490691-BH-BQ Scorewas developed and its performance characteristics determinedby [employer]. It has not been cleared or approved by the Foodand Drug Administration.PATIENT WAS FASTINGPERFORMED BY: [facility] [address] [id number] BY: SMGBB70 [facility] [id number] Protein Ql (U) Negative Normal Comprehens [facility] Internal Medicine; [facility] Work Phone: Comment on above: Test(s) 211443-QYQ-N ; 642545-NUC-W; 068715-Oinvxxpzxqnra; 882124-Bralvfmhiql, Total; 479557-WSW-O (Total); 190441-Mgdfu LDL-P; 584351-GSI Size; 594316-BR-ZR Scorewas developed and its performance characteristics determinedby [employer]. It has not been cleared or approved by the Foodand Drug Administration.PATIENT WAS FASTINGPERFORMED BY: [facility] [address] [id number] BY: [employer] Ptaggc3275 [facility] [id number] Specific gravity (U) [Rel density] 1.018 1 Normal 1.005-1.03 0 [facility] Work Phone: Comment on above: Test(s) 455334-LLZ-Z ; 211580-AHB-K; 260605-Mjirynajcwcna; 020653-Tamzfpccpmy, Total; 193823-LWV-A (Total); 253073-Drfzv LDL-P; 374779-ZAP Size; 124832-MB-AX Scorewas developed and its performance characteristics determinedby [employer]. It has not been cleared or approved by the Foodand Drug Administration.PATIENT WAS FASTINGPERFORMED BY: [employer] [id number] BY: [employer] CorporationMorgan V[place] 9235970 [facility] [id number] Urobilinogen (U) [Mass/Vol] 0.2 mg/dL Normal 0.2-1.0 [facility]; [facility] Work Phone: Comment on above: Test(s) 717399-MJF-Y ; 231464-MJH-B; 040114-Xqlwuuxqdcged; 736633-Cggjsfbkfhp, Total; 867908-XUF-D (Total); 164870-Pufmk LDL-P; 629659-YVY Size; 172322-ZD-MU Scorewas developed and its performance characteristics determinedby [employer]. It has not been cleared or approved by the Foodand Drug Administration.PATIENT WAS FASTINGPERFORMED BY: [facility] [address] [id number] BY: [employer] CorporationRobert Wood Johnson University HospitalYudfes0558 [facility] [id number] Urobilinogen Test strip (U) [Mass/Vol] 0.2 mg/dL Normal 0.2-1.0 [facility] Internal Medicine Work Phone: Comment on above: Test(s) 893709-ATK-E ; 467300-JHJ-I; 163859-Sefdgkddmvhtg; 593547-Ncrxvpjhbnq, Total; 844987-ZZW-B (Total); 371395-Wzktp LDL-P; 207831-CEM Size; 895583-CZ-RT Scorewas developed and its performance characteristics determinedby [employer]. It has not been cleared or approved by the Foodand Drug Administration.PATIENT WAS FASTINGPERFORMED BY: [employer] [id number] BY: TONYA [facility] Xtaguv3072 [facility] [id number] Erythrocyte sedimentation ra leonard 03-07-2020 ESR (Bld) [Velocity] 14 mm/h 0-20 [facility] No Panel Informationon 03-07 Prostate Specific Antigen Screen 2.19 ng/mL 0.00-4.00 [facility] Comment on above: This test was perfor med using the TPSA assay method for the[employer] chemistry system. Values obtained with differentassay methods cannot be used interchangably.When changing PSA assays in the course of monitoring apatient, additional sequential testing should be carriedout to confirm baseline values. Thin prep Papanicolaou smear with manual screeningon 03-07-2020 Thin prep Papanicolaou smear with manual screening 248 U/L 87-241 [facility] CBC with auto diff (85962)Or dered By: Calliope Player on 02-11-2020 Basophils (Bld) [#/Vol] 0.7 {x10E3/uL} Abnormal 0.0-0.2 [facility] Work Phone: Comment on above: PATIENT NOT FASTINGP ERFORMED BY: TONYA [facility] Cnbndg7854 [facility] [id number] BY: CLCIN [facility] [place] Jttrbfmr19633 [address] [facility] [address] [id number] Basophils (Bld) [#/Vol] 0.7 10*3/uL Abnormal 0.0-0.2 [facility]; [facility] Work Phone: Comment on above: PATIENT NOT FASTINGP ERFORMED BY: TONYA [facility] Fpzaea0761 [facility] [id number] BY: CLCIN [facility] [place] Goemlgbi48960 [address] [facility] [address] [id number] Basophils/100 WBC (Bld) 3 % Normal C omprehensive Internal Medicine Work Phone: Comment on above: PATIENT NOT FASTINGP ERFORMED BY: TONYA [facility] Rvwfpk4609 [facility] [id number] BY: CLCIN [facility] [place] [address] [facility] [address] [id number] Eosinophils (Bld) [#/Vol] 0.4 {x10E3/uL} Normal 0.0-0.4 [facility] Work Phone: Comment on above: PATIENT NOT FASTINGP ERFORMED BY: TONYA LabJoyarp Ahejkl9250 [address] RoadDublin [place] [id number] BY: CLCIN [facility] [place] [address] [facility] [address] [id number] Eosinophils (Bld) [#/Vol] 0.4 10*3/uL Normal 0.0-0.4 [facility]; [facility] Work Phone: Comment on above: PATIENT NOT FASTINGP ERFORMED BY: TONYA [facility] Ueccpt1563 [address]aney RoadDublin [place] [id number] BY: CLCIN [facility] [place] [address] [facility] 150[place] [id number] Eosinophils/100 WBC (Bld) 2 % Normal [facility] Work Phone: Comment on above: PATIENT NOT FASTINGP ERFORMED BY: TONYA LabJuliana DavidsonVyrdar5052 [address]aney RoadDublin [place] [id number] BY: CLCIN [facility] [place] [address] [facility] 150[place] [id number] Erythrocyte distribution width (RBC) [Ratio] 13.9 % Normal 11.6-15.4 [facility] Work Phone: Comment on above: PATIENT NOT FASTINGP ERFORMED BY: TONYA [facility] Gmxrne1657 [address]aney RoadDublin [place] [id number] BY: CLCIN [facility] [place] [address] [facility] 150[place] [id number] Hematocrit (Bld) [Volume fraction] 45.8 % Normal 37.5-51.0 [facility] Work Phone: Comment on above: PATIENT NOT FASTINGP ERFORMED BY: TONYA [facility] Ryuwsx1263 [address] RoadDublin [place] [id number] BY: CLCIN [facility] [facility] [address] [id number] Hemoglobin (Bld) [Mass/Vol] 15.2 g/dL Normal 13.0-17.7 [facility] Work Phone: Comment on above: PATIENT NOT FASTINGP ERFORMED BY: TONYA LabJuliana DavidsonTqoffq5559 [facility] [id number] BY: CLCIN [facility] [place] [address]13[address] [facility] [address] [id number] Immature cells/100 WBC (Bld) Note Normal [facility] Work Phone: Comment on above: PATIENT NOT FASTINGP ERFORMED BY: TONYA LabJuliana DavidsonWpnqgt7697 [facility] [id number] BY: CLCIN LabCoLisa Ville 2352591 [address] [facility] [address] [id number] Lymphocytes (Bld) [#/Vol] 4.8 {x10E3/uL} Abnormal 0.7-3.1 [facility] Work Phone: Comment on above: PATIENT NOT FASTINGP ERFORMED BY: TONYA Davidsonlin6370 [facility] [id number] BY: [facility] HEALTH SERVICESIN LabCoLisa Ville 2352591 [address] [facility] [address] [id number] Lymphocytes (Bld) [#/Vol] 4.8 10*3/uL Abnormal 0.7-3.1 [facility]; [facility] Work Phone: Comment on above: PATIENT NOT FASTINGP ERFORMED BY: TONYA [facility] Mhtova1210 [facility] [id number] BY: CLCIN LabJerry Ville 7689791 [address] [facility] [address] [id number] Lymphocytes/100 WBC (Bld) 22 % Normal [facility] Work Phone: Comment on above: PATIENT NOT FASTINGP ERFORMED BY: TONYA [facility] Ivsxnb2325 [facility] [id number] BY: [facility] LabColumbus Regional Health[address] [id number] MCH (RBC) [Entitic mass] 29.9 pg Normal 26.6-33.0 [facility] Internal Medicine Work Phone: Comment on above: PATIENT NOT FASTINGP ERFORMED BY: TONYA LabJuliana DavidsonZwbhyb0142 [facility] [id number] BY: [facility] LabJerry Ville 7689791 [address] [facility] [address] [id number] MCHC (RBC) [Mass/Vol] 33.2 g/dL Normal 31.5-35.7 [facility] Internal Medicine Work Phone: Comment on above: PATIENT NOT FASTINGP ERFORMED BY: TONYA [facility] Akdenx3377 [facility] [id number] BY: [facility] LabJerry V[place] 7689791 [address] [facility] [address] [id number] MCV (RBC) [Entitic vol] 90 fL Normal 79-97 [facility]erens[facility] Internal Medicine Work Phone: Comment on above: PATIENT NOT FASTINGP ERFORMED BY: TONYA Davidsonlin6370 [facility] [id number] BY: [facility] LabJeffrey Ville [address] [facility] [address] [id number] Monocytes (Bld) [#/Vol] 1.1 {x10E3/uL} Abnormal 0.1-0.9 [facility] Work Phone: Comment on above: PATIENT NOT FASTINGP ERFORMED BY: TONYA [facility] Osfsnj2909 [facility] [id number] BY: [facility] LabJerry [place] 7689791 [address] [facility] [address] [id number] Monocytes (Bld) [#/Vol] 1.1 10*3/uL Abnormal 0.1-0.9 [facility]; [facility] Work Phone: Comment on above: PATIENT NOT FASTINGP ERFORMED BY: TONYA [facility] Lqgfqj05[address] Karman[facility] Cancer CenterDublin [place] [id number] BY: CLCIN [facility] [place] Oatdnfer[address] [id number] Monocytes/100 WBC (Bld) 5 % Normal C omprehensive Internal Medicine Work Phone: Comment on above: PATIENT NOT FASTINGP ERFORMED BY: TONYA [facility] Dpmseq6844 [address] [facility] [place] [id number] BY: CLCIN [facility] [place] Trfjunud[address] [id number] Morphology Miguel (Bld) [Interp] Note: Normal [facility] Work Phone: Comment on above: Manual differential was performed. PATIENT NOT FASTINGP ERFORMED BY: TONYA [facility] Mksfxn7160 [facility] [id number] BY: CLCIN [facility] [place] Zbuwrwpr[address] [place] [address] [id number] Neutrophils (Bld) [#/Vol] 12.2 {x10E3/uL} Abnormal 1.4-7.0 [facility] Work Phone: Comment on above: PATIENT NOT FASTINGP ERFORMED BY: TONYA [facility] Zkties5359 [facility] [id number] BY: CLCIN [facility] [place] Vtfpkwff90258 [address] [facility] [address] [id number] Neutrophils (Bld) [#/Vol] 12.2 10*3/uL Abnormal 1.4-7.0 [facility]; [facility] Work Phone: Comment on above: PATIENT NOT FASTINGP ERFORMED BY: TONYA [facility] Tzsiob3934 [address] [facility] [id number] BY: CLCIN [facility] [place] Gmuzsaxe[address] [place] [address] [id number] Neutrophils/100 WBC (Bld) 56 % Normal [facility] Work Phone: Comment on above: PATIENT NOT FASTINGP ERFORMED BY: TONYA [facility] Qopmsx1771 [address] RoadDublin [place] [id number] BY: CLCIN [facility] [place] Hxhryvus88708 [address] [facility] [address] [id number] Platelets (Bld) [#/Vol] 216 {x10E3/uL} Normal 150-450 [facility] Work Phone: Comment on above: PATIENT NOT FASTINGP ERFORMED BY: TONYA [facility] Fhuxxp5169 [address] RoadDublin [place] [id number] BY: CLCIN [facility] [place] Xulagtub52677 [address] [facility] [address] [id number] Platelets (Bld) [#/Vol] 216 10*3/uL Normal 150-450 [facility]; [facility] Work Phone: Comment on above: PATIENT NOT FASTINGP ERFORMED BY: TONYA [facility] Yvxgpt7741 [address] RoadDublin [place] [id number] BY: CLCIN [facility] [place] Xwhsqkif62459 [address] [facility] [address] [id number] RBC (Bld) [#/Vol] 5.08 {x10E6/uL} Normal 4.14-5.80 [facility] Internal Medicine Work Phone: Comment on above: PATIENT NOT FASTINGP ERFORMED BY: TONYA [facility] Flkydw5118 [address] RoadDublin [place] [id number] BY: CLCIN [facility] [place] Fmjoutic84184 [address] [facility] [address] [id number] RBC (Bld) [#/Vol] 5.08 10*6/uL Normal 4.14-5.80 [facility] Internal Medicine; [facility] Work Phone: Comment on above: PATIENT NOT FASTINGP ERFORMED BY: TONYA [facility] Tygoiy2352 [address] RoadDublin [place] [id number] BY: CLCIN [facility] [place] Uxmclwbx56707 [facility] 150[place] [id number] WBC (Bld) [#/Vol] 21.8 {x10E3/uL} Abnormal 3.4-10.8 [facility] Internal Medicine Work Phone: Comment on above: PATIENT NOT FASTINGP ERFORMED BY: TONYA [facility] Htgopp6664 [address]aney RoadDublin [place] [id number] BY: SANTAIN [facility] [place] [id number] [facility] 150[place] [id number] WBC (Bld) [#/Vol] 21.8 10*3/uL Abnormal 3.4-10.8 [facility] Internal Medicine; [facility] Work Phone: Comment on above: PATIENT NOT FASTINGP ERFORMED BY: TONYA [facility] Orwjnn0300 [address] RoadDublin [place] [id number] BY: SANTAIN [facility] [place] Clmncxsr92369 [facility] 150[place] [id number] C-REACTIVE PROTEIN (59977)Or dered By: Calliope Player on 02-01-2020 CRP [Mass/Vol] mg/L Normal 0-10 Comprehens arianna Internal Medicine Work Phone: Comment on above: PATIENT NOT FASTINGP ERFORMED BY: TONYA [facility] Ghcgoe0937 [address]aney RoadDublin [place] [id number] CRP [Mass/Vol] mg/L Normal 0-10 Comprehens arianna Internal Medicine; [facility] Work Phone: Comment on above: PATIENT NOT FASTINGP ERFORMED BY: CB [facility] Beaztr5769 [address] RoadDublin [place] [id number] CBC W/AUTO DIFF WBC (02651)O rdered By: Calliope Player on 02-01-2020 Basophils (Bld) [#/Vol] 0.5 {x10E3/uL} Abnormal 0.0-0.2 [facility] Work Phone: Comment on above: PATIENT NOT FASTINGP ERFORMED BY: CB [facility] Urmipk6275 [address] RoadDublin [place] [id number] Basophils (Bld) [#/Vol] 0.5 10*3/uL Abnormal 0.0-0.2 [facility]; [facility] Work Phone: Comment on above: PATIENT NOT FASTINGP ERFORMED BY: TONYA [facility] Pdqekd7749 [address]aney RoadDublin [place] [id number] Basophils/100 WBC (Bld) 2 % Normal C omprehensive Internal Medicine Work Phone: Comment on above: PATIENT NOT FASTINGP ERFORMED BY: CB [facility] Zwqsug7908 [address] RoadDublin [place] [id number] Eosinophils (Bld) [#/Vol] 0.8 {x10E3/uL} Abnormal 0.0-0.4 [facility] Work Phone: Comment on above: PATIENT NOT FASTINGP ERFORMED BY: CB [facility] Nkhjrx4472 [address] RoadAtrium Health Cabarrusin [place] [id number] Eosinophils (Bld) [#/Vol] 0.8 10*3/uL Abnormal 0.0-0.4 [facility]; [facility] Work Phone: Comment on above: PATIENT NOT FASTINGP ERFORMED BY: CB [facility] Teopnt9593 [address] RoadAtrium Health Cabarrusin [place] [id number] Eosinophils/100 WBC (Bld) 3 % Normal [facility] Work Phone: Comment on above: PATIENT NOT FASTINGP ERFORMED BY: [facility] Ujbwgg2647 [address] [facility] [id number] Erythrocyte distribution width (RBC) [Ratio] 13.8 % Normal 11.6-15.4 [facility] Work Phone: Comment on above: PATIENT NOT FASTINGP ERFORMED BY: CB [facility] Cakboh2187 [address] Roadblin [place] [id number] Hematocrit (Bld) [Volume fraction] 47.0 % Normal 37.5-51.0 [facility] Work Phone: Comment on above: PATIENT NOT FASTINGP ERFORMED BY: CB [facility] Qmrmdp8059 Haney RoadDuin [place] [id number] Hemoglobin (Bld) [Mass/Vol] 16.4 g/dL Normal 13.0-17.7 [facility] Work Phone: Comment on above: PATIENT NOT FASTINGP ERFORMED BY: TONYA LabCoaida DavidsonPhnmfy[address] [facility]in [place] [id number] Immature cells/100 WBC (Bld) Note Normal [facility] Work Phone: Comment on above: PATIENT NOT FASTINGP ERFORMED BY: CB LabCo Umgzop8251 [address] [facility] [id number] Lymphocytes (Bld) [#/Vol] 3.1 {x10E3/uL} Normal 0.7-3.1 [facility] Work Phone: Comment on above: PATIENT NOT FASTINGP ERFORMED BY: LabCoRobert Wood Johnson University HospitalRwpkjq9198 [address] [facility] [id number] Lymphocytes (Bld) [#/Vol] 3.1 10*3/uL Normal 0.7-3.1 [facility]; [facility] Work Phone: Comment on above: PATIENT NOT FASTINGP ERFORMED BY: LabCoRobert Wood Johnson University HospitalBrguxt5153 [address] [facility] [id number] Lymphocytes/100 WBC (Bld) 12 % Normal [facility] Work Phone: Comment on above: PATIENT NOT FASTINGP ERFORMED BY: LabCo Tylvfb0490 [facility] [id number] MCH (RBC) [Entitic mass] 30.7 pg Normal 26.6-33.0 [facility] Internal Medicine Work Phone: Comment on above: PATIENT NOT FASTINGP ERFORMED BY: LabCo Rejklm2684 [address] [facility] [id number] MCHC (RBC) [Mass/Vol] 34.9 g/dL Normal 31.5-35.7 [facility] Internal Medicine Work Phone: Comment on above: PATIENT NOT FASTINGP ERFORMED BY: CB LabCo Rebvot0074 [address] [facility] Hospitalin [place] [id number] MCV (RBC) [Entitic vol] 88 fL Normal 79-97 C omprehensive Internal Medicine Work Phone: Comment on above: PATIENT NOT FASTINGP ERFORMED BY: CB [facility] Rmpyxt8240 [address] RoadDublin [place] [id number] Monocytes (Bld) [#/Vol] 1.5 {x10E3/uL} Abnormal 0.1-0.9 [facility] Work Phone: Comment on above: PATIENT NOT FASTINGP ERFORMED BY: CB [facility] Muxshz0309 [address] RoadDublin [place] [id number] Monocytes (Bld) [#/Vol] 1.5 10*3/uL Abnormal 0.1-0.9 [facility]; [facility] Work Phone: Comment on above: PATIENT NOT FASTINGP ERFORMED BY: CB [facility] Jfwmim1232 [address] RoadDublin [place] [id number] Monocytes/100 WBC (Bld) 6 % Normal C omprehensive [facility] Medicine Work Phone: Comment on above: PATIENT NOT FASTINGP ERFORMED BY: CB [facility] Dfvgek9606 [address] RoadDublin [place] [id number] Morphology Miguel (Bld) [Interp] Note: Normal [facility] Work Phone: Comment on above: Manual differential was performed. PATIENT NOT FASTINGP ERFORMED BY: CB [facility] Usikns1289 [address] RoadDublin [place] [id number] Neutrophils (Bld) [#/Vol] 18.1 {x10E3/uL} Abnormal 1.4-7.0 [facility] Work Phone: Comment on above: PATIENT NOT FASTINGP ERFORMED BY: CB [facility] Jkgucl4784 [address] RoadDublin [place] [id number] Neutrophils (Bld) [#/Vol] 18.1 10*3/uL Abnormal 1.4-7.0 [facility]; [facility] Work Phone: Comment on above: PATIENT NOT FASTINGP ERFORMED BY: CB [facility] Vhkeiv4699 [address] RoadDublin [place] [id number] Neutrophils/100 WBC (Bld) 70 % Normal [facility] Work Phone: Comment on above: PATIENT NOT FASTINGP ERFORMED BY: TONYA LabCoaida TorresGzzsyp0628 [address] RoadDublin [place] [id number] Platelets (Bld) [#/Vol] 220 {x10E3/uL} Normal 150-450 [facility] Work Phone: Comment on above: PATIENT NOT FASTINGP ERFORMED BY: CB [facility] Tsdsiu7994 [address] RoadDublin [place] [id number] Platelets (Bld) [#/Vol] 220 10*3/uL Normal 150-450 [facility]; [facility] Work Phone: Comment on above: PATIENT NOT FASTINGP ERFORMED BY: TONYA [facility] Fcghcd2413 [address] RoadDublin [place] [id number] RBC (Bld) [#/Vol] 5.35 {x10E6/uL} Normal 4.14-5.80 [facility] Work Phone: Comment on above: PATIENT NOT FASTINGP ERFORMED BY: CB [facility] Lypfjw8078 [address] RoadDublin [place] [id number] RBC (Bld) [#/Vol] 5.35 10*6/uL Normal 4.14-5.80 Compr ens[facility]; [facility] Work Phone: Comment on above: PATIENT NOT FASTINGP ERFORMED BY: TONYA [facility] Asbcmm6206 [address] RoadDublin [place] [id number] WBC (Bld) [#/Vol] 25.8 {x10E3/uL} Abnormal 3.4-10.8 [facility] Work Phone: Comment on above: PATIENT NOT FASTINGP ERFORMED BY: CB [facility] Bgsoxt8017 [address] RoadDublin [place] [id number] WBC (Bld) [#/Vol] 25.8 10*3/uL Abnormal 3.4-10.8 Compr ehensive [facility]; [facility] Work Phone: Comment on above: PATIENT NOT FASTINGP ERFORMED BY: CB LabCoRobert [facility] Johnson University HospitalIveydj0510 [facility] [id number] ESR-F (SED RATE ERYTHROCYTE - MALE) (61512)Ordered By: Calliope Player on 02-01-2020 ESR (Bld) [Velocity] 19 mm/h Normal 0-30 [facility] Work Phone: Comment on above: PATIENT NOT FASTINGP ERFORMED BY: TONYA LabJohn [facility]. [facility]6370 [facility] [id number] CBC W/AUTO DIFF WBC (06966)O rdered By: Calliope Player on 01-28-2020 Basophils (Bld) [#/Vol] 0.8 {x10E3/uL} Abnormal 0.0-0.2 [facility] Work Phone: Comment on above: early january; PATIENT NOT FASTINGPERFORMED BY: TONYA [facility]6[address] [facility] [id number] Basophils (Bld) [#/Vol] 0.8 10*3/uL Abnormal 0.0-0.2 [facility]; [facility] Work Phone: Comment on above: early january; PATIENT NOT FASTINGPERFORMED BY: TONYA LabJohn D. [facility]6370 [facility] [id number] Basophils/100 WBC (Bld) 5 % Normal C [facility]access [facility] daytonensive [facility] Work Phone: Comment on above: early january; PATIENT NOT FASTINGPERFORMED BY: LabJohn D. [facility]6370 [facility] [id number] Eosinophils (Bld) [#/Vol] 0.8 {x10E3/uL} Abnormal 0.0-0.4 [facility] Work Phone: Comment on above: early january; PATIENT NOT FASTINGPERFORMED BY: LabCoRobert Wood Johnson University HospitalUgonsn3164 [facility] [id number] Eosinophils (Bld) [#/Vol] 0.8 10*3/uL Abnormal 0.0-0.4 [facility]; [facility] Work Phone: Comment on above: early january; PATIENT NOT FASTINGPERFORMED BY: CB [facility] Sqkcxd0522 [address] RoadDublin [place] [id number] Eosinophils/100 WBC (Bld) 5 % Normal [facility] Work Phone: Comment on above: early january; PATIENT NOT FASTINGPERFORMED BY: CB [facility] Erptdv7025 [address] RoadDublin [place] [id number] Erythrocyte distribution width (RBC) [Ratio] 13.9 % Normal 11.6-15.4 [facility] Work Phone: Comment on above: early january; PATIENT NOT FASTINGPERFORMED BY: CB [facility] Ybmqef8274 [address] RoadDublin [place] [id number] Hematocrit (Bld) [Volume fraction] 47.3 % Normal 37.5-51.0 [facility] Work Phone: Comment on above: january; PATIENT NOT FASTINGPERFORMED BY: CB [facility] Tchlfg5023 [address] RoadDublin [place] [id number] Hemoglobin (Bld) [Mass/Vol] 15.6 g/dL Normal 13.0-17.7 [facility] Work Phone: Comment on above: january; PATIENT NOT FASTINGPERFORMED BY: CB [facility] Cmuaau2004 [address] RoadDublin [place] [id number] Immature cells/100 WBC (Bld) Note Normal [facility] Work Phone: Comment on above: january; PATIENT NOT FASTINGPERFORMED BY: CB [facility] Gkvsxc7828 [address] RoadDuin [place] [id number] Lymphocytes (Bld) [#/Vol] 2.3 {x10E3/uL} Normal 0.7-3.1 [facility] Work Phone: Comment on above: early january; PATIENT NOT FASTINGPERFORMED BY: CB [facility] Uswiwx3973 [address] RoadDublin [place] [id number] Lymphocytes (Bld) [#/Vol] 2.3 10*3/uL Normal 0.7-3.1 [facility]; [facility] Work Phone: Comment on above: early january; PATIENT NOT FASTINGPERFORMED BY: TONYA [facility] Bmgrrw9767 H[address] Roadblin [place] [id number] Lymphocytes/100 WBC (Bld) 15 % Normal [facility] Work Phone: Comment on above: january; PATIENT NOT FASTINGPERFORMED BY: CB [facility] Vxttrs5992 [address] Roadblin [place] [id number] MCH (RBC) [Entitic mass] 30.0 pg Normal 26.6-33.0 [facility] Internal Medicine Work Phone: Comment on above: early january; PATIENT NOT FASTINGPERFORMED BY: CB [facility] Ntcsuh[address] [facility] Hospitalblin [place] [id number] MCHC (RBC) [Mass/Vol] 33.0 g/dL Normal 31.5-35.7 [facility] Internal Medicine Work Phone: Comment on above: january; PATIENT NOT FASTINGPERFORMED BY: CB [facility] Hozimb8368 [facility] Hospitalin [place] [id number] MCV (RBC) [Entitic vol] 91 fL Normal 79-97 [facility]erensive [facility] Work Phone: Comment on above: january; PATIENT NOT FASTINGPERFORMED BY: CB [facility] Sqkwgr46[address] [facility] Hospitalin [place] [id number] Monocytes (Bld) [#/Vol] 1.1 {x10E3/uL} Abnormal 0.1-0.9 [facility] Internal Medicine Work Phone: Comment on above: january; PATIENT NOT FASTINGPERFORMED BY: CB [facility] Veskvo[address] [facility] Hospitalblin [place] [id number] Monocytes (Bld) [#/Vol] 1.1 10*3/uL Abnormal 0.1-0.9 [facility] Internal Medicine; [facility] Work Phone: Comment on above: january; PATIENT NOT FASTINGPERFORMED BY: CB [facility] Wjokxw8183 [address] RoadDublin [place] [id number] Monocytes/100 WBC (Bld) 7 % Normal C [facility]mpaccess [facility] daytonensive [facility] Work Phone: Comment on above: early january; PATIENT NOT FASTINGPERFORMED BY: CB [facility] Aosplr0813 [address] RoadDublin [place] [id number] Morphology Miguel (Bld) [Interp] Note: Normal [facility] Work Phone: Comment on above: Manual differential was performed. early january; PATIENT NOT FASTINGPERFORMED BY: CB [facility] Wfhonl5682 [address] RoadDublin [place] [id number] Neutrophils (Bld) [#/Vol] 9.0 {x10E3/uL} Abnormal 1.4-7.0 [facility] Work Phone: Comment on above: early january; PATIENT NOT FASTINGPERFORMED BY: CB [facility] Uvaieo68[address] RoadDublin [place] [id number] Neutrophils (Bld) [#/Vol] 9.0 10*3/uL Abnormal 1.4-7.0 [facility]; [facility] Work Phone: Comment on above: early january; PATIENT NOT FASTINGPERFORMED BY: CB [facility] Xskyfu8191 [address] RoadDublin [place] [id number] Neutrophils/100 WBC (Bld) 59 % Normal [facility] Work Phone: Comment on above: early january; PATIENT NOT FASTINGPERFORMED BY: CB [facility] Kradqb7466 [address] RoadDublin [place] [id number] Platelets (Bld) [#/Vol] 222 {x10E3/uL} Normal 150-450 [facility] Work Phone: Comment on above: early january; PATIENT NOT FASTINGPERFORMED BY: CB [facility] Iagsql4152 [address] RoadDublin [place] [id number] Platelets (Bld) [#/Vol] 222 10*3/uL Normal 150-450 [facility]; [facility] Work Phone: Comment on above: early january; PATIENT NOT FASTINGPERFORMED BY: CB [facility] Xdmeiw3969 [address] RoadDublin [place] [id number] RBC (Bld) [#/Vol] 5.20 {x10E6/uL} Normal 4.14-5.80 Co mprehensive Internal [facility] Work Phone: Comment on above: january; PATIENT NOT FASTINGPERFORMED BY: [facility]6370 [facility] [id number] RBC (Bld) [#/Vol] 5.20 10*6/uL Normal 4.14-5.80 [facility] Internal [facility] Work Phone: Comment on above: january; PATIENT NOT FASTINGPERFORMED BY: [facility]6[address] [facility] [id number] WBC (Bld) [#/Vol] 15.2 {x10E3/uL} Abnormal 3.4-10.8 [facility] Internal [facility] Work Phone: Comment on above: january; PATIENT NOT FASTINGPERFORMED BY: [place] 3207870 [facility] [id number] WBC (Bld) [#/Vol] 15.2 10*3/uL Abnormal 3.4-10.8 [facility] Internal [facility]; [facility] Internal Medicine Work Phone: Comment on above: january; PATIENT NOT FASTINGPERFORMED BY: [facility]6[address] [facility] [id number] CBC W/AUTO DIFF WBC (42407)O rdered By: Calliope Player on 12-24-2019 Basophils (Bld) [#/Vol] 0.4 {x10E3/uL} Abnormal 0.0-0.2 [facility] Internal Medicine Work Phone: Comment on above: Test(s) 108385-EDV-G ; 303991-LPU-R; 500380-PNZ-S; 581885-Ufvnrljdculmt; 360761-Thhbxybwskh, Total; 306081-AKZ-M (Total);963905-Vxajg LDL-P; 176336-BCQ Size; 600980-XY-IE Scorewas developed and its performance characteristics determinedby [facility]. It has not been cleared or approved by the Foodand Drug Administration.PATIENT WAS FASTINGPERFORMED BY: [address] [id number] BY: [employer]6370 [facility] [id number] Basophils (Bld) [#/Vol] 0.4 10*3/uL Abnormal 0.0-0.2 [facility]; [facility] Work Phone: Comment on above: Test(s) 763407-JAT-H ; 339946-PAE-A; 953990-VEE-J; 565613-Sziyahqdwiqfy; 018538-Bkeicsxifvn, Total; 988038-CME-K (Total);367564-Pbbqk LDL-P; 693465-MNT Size; 665860-VV-QH Scorewas developed and its performance characteristics determinedby [employer]. It has not been cleared or approved by the Foodand Drug Administration.PATIENT WAS FASTINGPERFORMED BY: [facility] [address] [id number] BY: [employer]6[address] [facility] [id number] Basophils/100 WBC (Bld) 3 % Normal C [facility] Internal Medicine Work Phone: Comment on above: Test(s) 000986-YHC-Y ; 630464-ZWR-A; 143447-MJH-G; 811445-Xsqljijusrppy; 422437-Rbwtyvkvpbq, Total; 001094-JIE-T (Total);083909-Azese LDL-P; 015191-WPW Size; 814499-WA-BK Scorewas developed and its performance characteristics determinedby [employer]. It has not been cleared or approved by the Foodand Drug Administration.PATIENT WAS FASTINGPERFORMED BY: [facility] [address] [id number] BY: Noovolin6370 [facility] [id number] Eosinophils (Bld) [#/Vol] 0.6 {x10E3/uL} Abnormal 0.0-0.4 [facility] Work Phone: Comment on above: Test(s) 456959-AIT-E ; 576621-LSI-N; 721828-TSB-B; 032507-Eqobsrvjwagqq; 563347-Semtfxepdjo, Total; 942297-CUA-H (Total);831226-Ezevv LDL-P; 298720-SXN Size; 833439-KE-AU Scorewas developed and its performance characteristics determinedby [employer]. It has not been cleared or approved by the Foodand Drug Administration.PATIENT WAS FASTINGPERFORMED BY: SpaceList[address] [id number] BY: SMGBB70 [facility] [id number] Eosinophils (Bld) [#/Vol] 0.6 10*3/uL Abnormal 0.0-0.4 [facility]; [facility] Work Phone: Comment on above: Test(s) 028152-AYY-K ; 694065-DKC-J; 967518-ZQK-A; 013050-Tlskpiugzpgnk; 884669-Czfrvxjmtzm, Total; 097454-RKV-M (Total);500069-Yzmke LDL-P; 605688-ZXL Size; 141736-DP-GV Scorewas developed and its performance characteristics determinedby [employer]. It has not been cleared or approved by the Foodand Drug Administration.PATIENT WAS FASTINGPERFORMED BY: SpaceList[address] [id number] BY: [employer]6[address] [facility] [id number] Eosinophils/100 WBC (Bld) 4 % Normal [facility] Work Phone: Comment on above: Test(s) 759525-VTJ-Q ; 109004-UMT-Y; 988226-IDJ-C; 259867-Chpqgfeiwksmp; 222046-Ikqatpxdiqi, Total; 750219-ILG-K (Total);192541-Juhrz LDL-P; 380238-CFG Size; 884208-RS-CS Scorewas developed and its performance characteristics determinedby [employer]. It has not been cleared or approved by the Foodand Drug Administration.PATIENT WAS FASTINGPERFORMED BY: SpaceList[address] [id number] BY: [employer]6[address] [facility] [id number] Erythrocyte distribution width (RBC) [Ratio] 14.1 % Normal 11.6-15.4 [facility] Work Phone: Comment on above: Test(s) 552137-WGM-M ; 689154-RBJ-A; 550825-HVM-R; 296889-Ljppgqxzmzdiq; 010654-Gxvlywhpshi, Total; 552231-RFJ-L (Total);902090-Kefea LDL-P; 248312-FSG Size; 737247-RW-HV Scorewas developed and its performance characteristics determinedby [employer]. It has not been cleared or approved by the Foodand Drug Administration.PATIENT WAS FASTINGPERFORMED BY: [facility] [address] [id number] BY: [employer]6370 adQUNC [facility] [id number] Hematocrit (Bld) [Volume fraction] 43.8 % Normal 37.5-51.0 [facility] Work Phone: Comment on above: Test(s) 678211-SXF-B ; 283636-NQC-Z; 934456-FGV-K; 914905-Xvfpegvplvvnw; 813884-Lxxvgxrdycv, Total; 827854-ASL-X (Total);556445-Plexm LDL-P; 671102-NFD Size; 343553-UA-RY Scorewas developed and its performance characteristics determinedby [employer]. It has not been cleared or approved by the Foodand Drug Administration.PATIENT WAS FASTINGPERFORMED BY: [facility] [address] [id number] BY: [employer]6[address] [facility] [id number] Hemoglobin (Bld) [Mass/Vol] 15.6 g/dL Normal 13.0-17.7 [facility] Work Phone: Comment on above: Test(s) 902014-JBC-P ; 073211-YPL-S; 681376-XNO-U; 660584-Fjtracclxkshr; 291039-Rmysfafihjw, Total; 178073-THL-R (Total);718273-Ofhce LDL-P; 071457-XLD Size; 465971-BC-BK Scorewas developed and its performance characteristics determinedby [employer]. It has not been cleared or approved by the Foodand Drug Administration.PATIENT WAS FASTINGPERFORMED BY: [employer] [address] [id number] BY: [employer]70 [facility] [id number] Immature granulocytes (Bld) [#/Vol] 0.6 {x10E3/uL} Abnormal 0.0-0.1 [facility] Work Phone: Comment on above: (An elevated percent age of Immature Granulocytes has not been foundto be clinically significant as a sole clinical predictor of disease.Does NOT include bands or blast cells. associatedphysiological leukocytosis may also show increased immaturegranulocytes without clinical significance.) Test(s) 639680-OCP-T ; 329419-QVN-K; 655577-KMR-B; 089337-Cevdncjcyicow; 692683-Iabfneiqgfw, Total; 908694-PEW-M (Total);955772-Gkwjy LDL-P; 682310-RUZ Size; 907154-BO-UF Scorewas developed and its performance characteristics determinedby [employer]. It has not been cleared or approved by the FoodEmay Softcom Drug Administration.PATIENT WAS FASTINGPERFORMED BY: [facility] [address] [id number] BY: [employer] Fanofp1801 [facility] [id number] Immature granulocytes (Bld) [#/Vol] 0.6 10*3/uL Abnormal 0.0-0.1 [facility]; [facility] Work Phone: Comment on above: (An elevated percent age of Immature Granulocytes has not been foundto be clinically significant as a sole clinical predictor of disease.Does NOT include bands or blast cells. associatedphysiological leukocytosis may also show increased immaturegranulocytes without clinical significance.) Test(s) 428257-IPY-B ; 067780-YUE-C; 876091-ZEL-C; 607397-Dtjetuzsgzebn; 158670-Emgyyvljzvr, Total; 649356-PFP-Q (Total);465843-Eidds LDL-P; 387278-KVP Size; 792258-JX-IG Scorewas developed and its performance characteristics determinedby [employer]. It has not been cleared or approved by the Foodand Drug Administration.PATIENT WAS FASTINGPERFORMED BY: [facility] [address] [id number] BY: SMGBB70 [facility] [id number] Immature granulocytes/100 WBC (Bld) 4 % Normal [facility] Work Phone: Comment on above: Test(s) 196317-TKF-D ; 995410-YNN-U; 379227-KAC-V; 862338-Qwoegesbaftbi; 914596-Hhjfdjtectu, Total; 817281-PFG-P (Total);105776-Qavwg LDL-P; 582451-KVF Size; 830067-UG-CE Scorewas developed and its performance characteristics determinedby [employer]. It has not been cleared or approved by the Foodand Drug Administration.PATIENT WAS FASTINGPERFORMED BY: [facility] [address] [id number] BY: [employer] Zrirox8489 [facility] [id number] Lymphocytes (Bld) [#/Vol] 2.5 {x10E3/uL} Normal 0.7-3.1 [facility] Work Phone: Comment on above: Test(s) 813549-GTU-Z ; 364936-MHB-W; 049813-BVE-P; 919499-Bokkrgtbyutar; 961407-Sjdrgxibjqa, Total; 515300-JOE-J (Total);748407-Ofyfl LDL-P; 056564-YXH Size; 114241-OK-FH Scorewas developed and its performance characteristics determinedby [employer]. It has not been cleared or approved by the Foodand Drug Administration.PATIENT WAS FASTINGPERFORMED BY: [facility] [address] [id number] BY: ScalingDataInscription House Health CenterJhuxwc9828 [facility] [id number] Lymphocytes (Bld) [#/Vol] 2.5 10*3/uL Normal 0.7-3.1 [facility]; [facility] Work Phone: Comment on above: Test(s) 466326-XMW-V ; 796409-HIM-H; 588546-LWA-D; 302536-Fdgctwbccobfk; 979788-Cygjjlcwxut, Total; 045141-LSM-S (Total);279575-Diysv LDL-P; 203003-FJH Size; 282146-MY-CF Scorewas developed and its performance characteristics determinedby [employer]. It has not been cleared or approved by the Foodand Drug Administration.PATIENT WAS FASTINGPERFORMED BY: [facility] [address] [id number] BY: [employer] MergeLocalUNC Health Chatham [id number] Lymphocytes/100 WBC (Bld) 17 % Normal [facility] Work Phone: Comment on above: Test(s) 862697-WOU-B ; 478242-RTA-C; 718124-GPF-F; 274397-Cjvxydxdlkeen; 144283-Pxaniqdbtfp, Total; 661618-QTV-C (Total);158180-Cuogy LDL-P; 778039-PFB Size; 171036-IO-TC Scorewas developed and its performance characteristics determinedby [employer]. It has not been cleared or approved by the Foodand Drug Administration.PATIENT WAS FASTINGPERFORMED BY: [facility] [address] [id number] BY: Noovolin6370 [facility] [id number] MCH (RBC) [Entitic mass] 31.3 pg Normal 26.6-33.0 [facility] Work Phone: Comment on above: Test(s) 862377-KJS-I ; 923800-SIT-B; 399655-VKD-V; 341430-Frlinshogmvcn; 527939-Uusxxfcpmdb, Total; 413380-IFN-G (Total);422625-Pximi LDL-P; 631001-VLU Size; 872769-BC-VI Scorewas developed and its performance characteristics determinedby [employer]. It has not been cleared or approved by the Foodand Drug Administration.PATIENT WAS FASTINGPERFORMED BY: [employer] [id number] BY: SMGBB[address] [place] [address] [id number] MCHC (RBC) [Mass/Vol] 35.6 g/dL Normal 31.5-35.7 [facility]erens[facility] Internal Medicine Work Phone: Comment on above: Test(s) 703974-AOY-N ; 802100-BPC-O; 888672-WKO-R; 849876-Fkmughyjaxshh; 595883-Vdfagxntwdp, Total; 343092-TUB-O (Total);905917-Ryglw LDL-P; 327326-OVC Size; 573629-MX-IL Scorewas developed and its performance characteristics determinedby [employer]. It has not been cleared or approved by the Foodand Drug Administration.PATIENT WAS FASTINGPERFORMED BY: [facility] [address] [id number] BY: [employer]6370 [facility] [id number] MCV (RBC) [Entitic vol] 88 fL Normal 79-97 C [facility]eren[facility] Internal Medicine Work Phone: Comment on above: Test(s) 756435-CGR-S ; 101441-KTY-Z; 996662-ALH-O; 432296-Fpayvehsqhjks; 696449-Cuiwufewxjp, Total; 772099-OVQ-G (Total);530765-Loczn LDL-P; 283045-IJB Size; 844994-UV-MM Scorewas developed and its performance characteristics determinedby [employer]. It has not been cleared or approved by the Foodand Drug Administration.PATIENT WAS FASTINGPERFORMED BY: [facility] [address] [id number] BY: [employer] [facility] [id number] Monocytes (Bld) [#/Vol] 1.4 {x10E3/uL} Abnormal 0.1-0.9 [facility] Work Phone: Comment on above: Test(s) 884444-KOB-U ; 586633-WWA-V; 621871-IDQ-X; 405640-Jczlgtrvofibi; 196610-Oqakrnfpfpq, Total; 322428-ZTH-L (Total);614405-Lnria LDL-P; 802616-OYC Size; 569904-YB-GN Scorewas developed and its performance characteristics determinedby [employer]. It has not been cleared or approved by the Foodand Drug Administration.PATIENT WAS FASTINGPERFORMED BY: [facility] [address] [id number] BY: [employer] MergeLocalUNC Health [facility]atham [id number] Monocytes (Bld) [#/Vol] 1.4 10*3/uL Abnormal 0.1-0.9 [facility]; [facility] Work Phone: Comment on above: Test(s) 564609-NMQ-M ; 352339-WXS-E; 337527-IVP-I; 388739-Btmbgrqaauxob; 095808-Ymklvwnbzvo, Total; 602396-EXH-X (Total);115865-Vtwfy LDL-P; 515574-CGE Size; 869354-EQ-IH Scorewas developed and its performance characteristics determinedby [employer]. It has not been cleared or approved by the Foodand Drug Administration.PATIENT WAS FASTINGPERFORMED BY: [facility] [address] [id number] BY: [employer] MergeLocalUNC Health [facility] [id number] Monocytes/100 WBC (Bld) 10 % Normal C omprehensive Internal Medicine Work Phone: Comment on above: Test(s) 059588-HNF-G ; 958459-LTD-Q; 175194-XYE-I; 310978-Hhjvxtwrwznea; 209808-Gphkkgnjxnb, Total; 845584-WXY-J (Total);873896-Evowf LDL-P; 946749-MJX Size; 827184-AP-DX Scorewas developed and its performance characteristics determinedby [employer]. It has not been cleared or approved by the Foodand Drug Administration.PATIENT WAS FASTINGPERFORMED BY: Stam[employer] [address] [id number] BY: Pegasus Imaging CorporationMorgan Ville 9235970 [facility] [id number] Neutrophils (Bld) [#/Vol] 9.1 {x10E3/uL} Abnormal 1.4-7.0 [facility] Work Phone: Comment on above: Test(s) 355388-OVI-X ; 634837-KQK-Q; 518665-VGM-M; 055133-Luslkpkatocft; 586206-Ohwylgwjhrw, Total; 020394-CKL-A (Total);304597-Mcbzk LDL-P; 990192-SOL Size; 409117-MA-AN Scorewas developed and its performance characteristics determinedby Stam[employer]. It has not been cleared or approved by the Foodand Drug Administration.PATIENT WAS FASTINGPERFORMED BY: [employer] [address] [id number] BY: Pegasus Imaging CorporationRobert Wood Johnson University HospitalPdoicf5641 [facility] [id number] Neutrophils (Bld) [#/Vol] 9.1 10*3/uL Abnormal 1.4-7.0 [facility]; [facility] Work Phone: Comment on above: Test(s) 123188-OQM-H ; 014237-NDA-B; 865725-DIP-J; 056248-Wexsthuwdooii; 624709-Ykddjzeejgd, Total; 092854-CNB-H (Total);932447-Xkqep LDL-P; 215930-EFS Size; 225920-OD-PM Scorewas developed and its performance characteristics determinedby Stam[employer]. It has not been cleared or approved by the Foodand Drug Administration.PATIENT WAS FASTINGPERFORMED BY: [facility] Wilgnbgely0396 [facility][1] [id number] BY: [employer]6370 adQUNC [facility] [id number] Neutrophils/100 WBC (Bld) 62 % Normal [facility] Work Phone: Comment on above: Test(s) 821225-AUX-C ; 112494-HJM-Y; 538315-LFE-D; 912093-Ffijzdqfmqhgg; 921023-Gtccxbiepyg, Total; 681921-RHY-M (Total);794216-Zarhh LDL-P; 919066-YPQ Size; 430018-LJ-KU Scorewas developed and its performance characteristics determinedby Stam[employer]. It has not been cleared or approved by the Foodand Drug Administration.PATIENT WAS FASTINGPERFORMED BY: [facility] [address] [id number] BY: SMGBB70 G-Innov[facility] Research & CreationGood Hope Hospital [id number] Platelets (Bld) [#/Vol] 229 {x10E3/uL} Normal 150-450 [facility] Work Phone: Comment on above: Test(s) 150336-HKZ-I ; 296811-KKX-E; 722142-ZWD-Y; 518102-Gadldsrixusmc; 211397-Yldxlzutlpp, Total; 904593-BOK-T (Total);528710-Uokii LDL-P; 961833-CXN Size; 392114-TD-BH Scorewas developed and its performance characteristics determinedby Stam[employer]. It has not been cleared or approved by the Foodand Drug Administration.PATIENT WAS FASTINGPERFORMED BY: [facility] [address] [id number] BY: Noovolin6370 [facility] [id number] Platelets (Bld) [#/Vol] 229 10*3/uL Normal 150-450 [facility]; [facility] Work Phone: Comment on above: Test(s) 681971-GRM-H ; 046256-SED-X; 241199-WAD-G; 664800-Bhamchnbjltou; 982756-Wvemerpgidz, Total; 490050-WRL-N (Total);510205-Ppicm LDL-P; 088894-QRC Size; 098283-LD-RN Scorewas developed and its performance characteristics determinedby Stamplay. It has not been cleared or approved by the Foodand Drug Administration.PATIENT WAS FASTINGPERFORMED BY: [facility] [address] [id number] BY: [place] [employer] Pakpzo9093 [facility] [id number] RBC (Bld) [#/Vol] 4.99 {x10E6/uL} Normal 4.14-5.80 [facility] Internal [facility] Work Phone: Comment on above: Test(s) 978982-IXJ-D ; 677519-YKG-Z; 694164-YAY-V; 594193-Mxxgeyxogucyg; 256447-Ljqecdvnxsn, Total; 576525-RZN-I (Total);853086-Kvbyd LDL-P; 464242-ERT Size; 727019-KV-DH Scorewas developed and its performance characteristics determinedby Stamplay. It has not been cleared or approved by the Foodand Drug Administration.PATIENT WAS FASTINGPERFORMED BY: [facility] [address] [id number] BY: [employer] Jpmmdi0152 [facility] [id number] RBC (Bld) [#/Vol] 4.99 10*6/uL Normal 4.14-5.80 [facility] Internal Medicine; [facility] Internal Medicine Work Phone: Comment on above: Test(s) 216925-MET-I ; 616869-DQF-V; 865600-UDI-F; 846221-Rydjrpagazher; 195873-Uiwrearzbwq, Total; 245976-MCN-Y (Total);476127-Itjrs LDL-P; 075434-JSB Size; 920972-OS-YR Scorewas developed and its performance characteristics determinedby Stamplay. It has not been cleared or approved by the Foodand Drug Administration.PATIENT WAS FASTINGPERFORMED BY: SpaceListton1447 [facility][1] [id number] BY: [employer]6370 [facility] [id number] WBC (Bld) [#/Vol] 14.5 {x10E3/uL} Abnormal 3.4-10.8 [facility] Internal Medicine Work Phone: Comment on above: Test(s) 744182-BEQ-Y ; 575005-JXX-U; 765599-RNB-S; 167157-Gpjyxgfimciqk; 186619-Yrhuvnlmuxz, Total; 343292-NJD-J (Total);092974-Dgear LDL-P; 434743-YNI Size; 696699-TZ-EV Scorewas developed and its performance characteristics determinedby Stamplay. It has not been cleared or approved by the Foodand Drug Administration.PATIENT WAS FASTINGPERFORMED BY: SpaceList[address] [id number] BY: [employer]6370 [facility] [id number] WBC (Bld) [#/Vol] 14.5 10*3/uL Abnormal 3.4-10.8 [facility] Internal Medicine; [facility] Internal Medicine Work Phone: Comment on above: Test(s) 407250-MDM-T ; 564210-JBL-L; 412966-PXU-K; 471795-Ujnrtymdsffrh; 699895-Qgjzivrdfiu, Total; 756584-DFJ-Q (Total);598304-Vbydy LDL-P; 189027-KUH Size; 029696-FC-HU Scorewas developed and its performance characteristics determinedby Stamplay. It has not been cleared or approved by the Foodand Drug Administration.PATIENT WAS FASTINGPERFORMED BY: SpaceList[address] [id number] BY: [employer]6370 [facility] [id number] METABOLIC PANEL, COMPREHENSI VE (42594)Ordered By: Calliope Player on 12-24-2019 Albumin [Mass/Vol] 4.7 g/dL Normal 3.8-4.9 [facility] Work Phone: Comment on above: Test(s) 915593-PXC-K ; 737300-EBT-O; 198885-GMZ-R; 820988-Mjlutmkzohbda; 425841-Qtzkzgvwueu, Total; 658294-QAK-I (Total);239843-Kuvsy LDL-P; 648267-MJM Size; 299298-EG-YG Scorewas developed and its performance characteristics determinedby Stamplay. It has not been cleared or approved by the Foodand Drug Administration.PATIENT WAS FASTINGPERFORMED BY: SpaceList[address] [id number] BY: SMGBB70 G-[facility] Research & CreationGood Hope Hospital [id number] Albumin/Globulin [Mass ratio] 1.7 {ratio} Normal 1.2-2.2 [facility] Internal Medicine Work Phone: Comment on above: Test(s) 891796-FID-T ; 493232-JBT-D; 597308-RRZ-V; 357576-Vicmzqlwfpdzu; 171940-Ihvooofqtvz, Total; 842633-DET-Q (Total);852531-Hxnik LDL-P; 204379-SSP Size; 855533-HG-KQ Scorewas developed and its performance characteristics determinedby Stamplay. It has not been cleared or approved by the FoodEmay Softcom Drug Administration.PATIENT WAS FASTINGPERFORMED BY: SpaceList[address] [id number] BY: [employer]6370 [place] MergeLocalUNC Health Ch[facility] [id number] ALP [Catalytic activity/Vol] 80 [iU]/L Normal 39-117 [facility] Work Phone: Comment on above: Test(s) 177784-THC-F ; 177161-BJY-N; 042982-VYB-Q; 500599-Otmsqlliubise; 205148-Zetafdstmaj, Total; 692727-BOO-D (Total);689026-Zlnas LDL-P; 129250-PLY Size; 954666-TU-HM Scorewas developed and its performance characteristics determinedby Stamplay. It has not been cleared or approved by the Foodand Drug Administration.PATIENT WAS FASTINGPERFORMED BY: [employer] [id number] BY: Pegasus Imaging CorporationRobert Wood Johnson University HospitalAvtvxu4060 [facility] [id number] ALP [Catalytic activity/Vol] 80 U/L Normal 39-117 [facility]; [facility] Work Phone: Comment on above: Test(s) 950425-HUY-Y ; 773715-OWH-A; 355855-OCQ-F; 495840-Bcjnbdnacezqj; 698992-Eciqsckgvzp, Total; 930248-KLH-B (Total);787450-Dahzc LDL-P; 474607-KFD Size; 598047-VL-YU Scorewas developed and its performance characteristics determinedby Stamplay. It has not been cleared or approved by the Foodand Drug Administration.PATIENT WAS FASTINGPERFORMED BY: Stamplay [address] [id number] BY: Pegasus Imaging CorporationRobert Wood Johnson University HospitalOjstiu7715 [facility] [id number] ALT [Catalytic activity/Vol] 33 [iU]/L Normal 0-44 [facility] Internal Medicine Work Phone: Comment on above: Test(s) 476691-HDO-H ; 814373-KLW-L; 434588-RHQ-D; 529117-Surcnhejqlpcu; 725725-Shzicjciddu, Total; 016914-VZS-K (Total);104185-Kxhis LDL-P; 518520-LXJ Size; 551574-AT-XX Scorewas developed and its performance characteristics determinedby Stamplay. It has not been cleared or approved by the Foodand Drug Administration.PATIENT WAS FASTINGPERFORMED BY: [employer] [id number] BY: Peg[employer] Imaging CorporationRobert Wood Johnson University HospitalNgbdwq6951 [facility] [id number] ALT [Catalytic activity/Vol] 33 U/L Normal 0-44 [facility]; [facility] Work Phone: Comment on above: Test(s) 386461-NEI-D ; 266536-DZP-Z; 665561-ONG-E; 714629-Onpinrupukeif; 915390-Uglfwlyrrfr, Total; 132684-LHL-K (Total);832429-Atddl LDL-P; 682484-OVZ Size; 182099-JF-XY Scorewas developed and its performance characteristics determinedby Stamplay. It has not been cleared or approved by the Foodand Drug Administration.PATIENT WAS FASTINGPERFORMED BY: [employer] [id number] BY: Pegasus Imaging CorporationRobert Wood Johnson University HospitalStcqyd9481 [facility] [id number] AST [Catalytic activity/Vol] 27 [iU]/L Normal 0-40 [facility] Work Phone: Comment on above: Test(s) 985978-XXM-I ; 809390-IIK-J; 415296-WHL-T; 093312-Jzunobxsmiuig; 761659-Bahojhomtbv, Total; 891913-XUE-T (Total);281095-Cbaln LDL-P; 787060-WKB Size; 514051-KK-VY Scorewas developed and its performance characteristics determinedby Stamplay. It has not been cleared or approved by the Foodand Drug Administration.PATIENT WAS FASTINGPERFORMED BY: [employer] [id number] BY: Pegasus Imaging CorporationRobert Wood Johnson University HospitalTabtko4705 [facility] [id number] AST [Catalytic activity/Vol] 27 U/L Normal 0-40 [facility]; [facility] Work Phone: Comment on above: Test(s) 713583-RHG-P ; 165931-ODO-Q; 917294-XQP-L; 710315-Hlckohmixrded; 922494-Bhpzhekhbfm, Total; 507819-LDY-B (Total);613578-Bjvmj LDL-P; 624625-BMC Size; 590269-NZ-JN Scorewas developed and its performance characteristics determinedby Stamplay. It has not been cleared or approved by the Foodand Drug Administration.PATIENT WAS FASTINGPERFORMED BY: ShopEat[address] [id number] BY: [employer] Fhhdou5537 [facility] [id number] Bilirubin [Mass/Vol] 0.4 mg/dL Normal 0.0-1.2 [facility] Internal Medicine Work Phone: Comment on above: Test(s) 373409-ASA-J ; 594990-KIU-X; 199524-FUP-P; 323026-Pzwqhruocuydd; 518380-Lbttirntdag, Total; 358176-DTI-B (Total);306210-Azytb LDL-P; 441315-ZJI Size; 232309-KK-WV Scorewas developed and its performance characteristics determinedby Stamplay. It has not been cleared or approved by the Foodand Drug Administration.PATIENT WAS FASTINGPERFORMED BY: SpaceList[address] [id number] BY: ScalingData Dwhbwd6112 [facility] [id number] Calcium [Mass/Vol] 9.5 mg/dL Normal 8.7-10.2 [facility] Internal Medicine Work Phone: Comment on above: Test(s) 181967-NQJ-E ; 051567-JKS-X; 256111-WQQ-K; 212988-Crjmskuhpncvw; 329362-Usmljefeiag, Total; 270550-ZQO-N (Total);196683-Mcqxk LDL-P; 824300-HNM Size; 406494-JS-WG Scorewas developed and its performance characteristics determinedby Stamplay. It has not been cleared or approved by the Foodand Drug Administration.PATIENT WAS FASTINGPERFORMED BY: [employer] [id number] BY: Pegasus Imaging CorporationRobert Wood Johnson University HospitalQnthei1535 [facility] [id number] Chloride [Moles/Vol] 98 mmol/L Normal 96-106 [facility] Internal Medicine Work Phone: Comment on above: Test(s) 813645-ULM-Z ; 489648-EIV-B; 940180-TYO-R; 525331-Vosvleceylzgz; 324500-Mwegonbngce, Total; 895307-TFK-O (Total);089157-Ewvje LDL-P; 036856-DNR Size; 518251-KG-RI Scorewas developed and its performance characteristics determinedby Stamplay. It has not been cleared or approved by the Foodand Drug Administration.PATIENT WAS FASTINGPERFORMED BY: [facility] [address] [id number] BY: SMGBB70 [facility] [id number] CO2 [Moles/Vol] 24 mmol/L Normal 20-29 [facility] Internal Medicine Work Phone: Comment on above: Test(s) 719232-RPA-Q ; 345922-KYF-X; 677165-OET-K; 118464-Sqsvnrjhpkict; 658444-Kyqkuuvbdlf, Total; 759116-UKV-R (Total);331440-Znsim LDL-P; 571152-JQD Size; 436589-VV-OG Scorewas developed and its performance characteristics determinedby Stamplay. It has not been cleared or approved by the Foodand Drug Administration.PATIENT WAS FASTINGPERFORMED BY: [facility] [address] [id number] BY: [employer]6370 [facility] [id number] Creatinine [Mass/Vol] 0.83 mg/dL Normal 0.76-1.27 [facility] Internal Medicine Work Phone: Comment on above: Test(s) 560014-EXQ-P ; 816801-QLS-Z; 390606-ODA-A; 326951-Yvzafbdxbymzq; 477123-Qjjhuqrlzni, Total; 640670-XIN-V (Total);698692-Hsaqb LDL-P; 541606-QOG Size; 330644-PI-MZ Scorewas developed and its performance characteristics determinedby Stamplay. It has not been cleared or approved by the Foodand Drug Administration.PATIENT WAS FASTINGPERFORMED BY: [facility] Moptcsundx5895 [facility][1] [id number] BY: [employer]6370 [facility] [id number] GFR/1.73 sq M predicted among blacks CKD-EPI (S/P/Bld) [Vol rate/Area] 111 mL/min/1.73 Normal [facility] Work Phone: Comment on above: Test(s) 233092-YNF-X ; 789842-NIJ-P; 413268-DCX-Q; 907932-Lmjilpzevcvye; 933320-Auklzqoiplt, Total; 092137-HQZ-O (Total);476836-Pkjmu LDL-P; 884020-FDD Size; 219814-HX-BR Scorewas developed and its performance characteristics determinedby Stamplay. It has not been cleared or approved by the Foodand Drug Administration.PATIENT WAS FASTINGPERFORMED BY: SpaceList[address] [id number] BY: SMGBB70 [facility] [id number] GFR/1.73 sq M predicted among non-blacks CKD-EPI (S/P/Bld) [Vol rate/Area] 96 mL/min/1.73 Normal [facility] Work Phone: Comment on above: Test(s) 131234-JOJ-J ; 114405-RSX-L; 292705-ZIB-S; 937894-Hsvfhimfydxux; 617086-Zsnrwgonucm, Total; 040492-YCK-T (Total);050875-Xcqqt LDL-P; 948862-ZGX Size; 459872-GG-AA Scorewas developed and its performance characteristics determinedby Stamplay. It has not been cleared or approved by the Foodand Drug Administration.PATIENT WAS FASTINGPERFORMED BY: [facility] [address] [id number] BY: [employer]6370 [facility] [id number] Globulin (S) [Mass/Vol] 2.8 g/dL Normal 1.5-4.5 [facility] Work Phone: Comment on above: Test(s) 062148-NLI-L ; 406389-NQH-L; 098536-DXP-E; 657980-Ydcusnwzmttci; 255207-Srioqugkwex, Total; 299359-OQU-W (Total);614153-Rdwud LDL-P; 776332-WLP Size; 663186-RX-CK Scorewas developed and its performance characteristics determinedby Stamplay. It has not been cleared or approved by the Foodand Drug Administration.PATIENT WAS FASTINGPERFORMED BY: [facility] [address] [id number] BY: SMGBB70 adQUNC Health [facility] [id number] Glucose [Mass/Vol] 97 mg/dL Normal 65-99 [facility] Internal Medicine Work Phone: Comment on above: Test(s) 207308-VAP-Z ; 724267-YUL-R; 291679-VDF-K; 974540-Ljhiswafskjyx; 832576-Ttxfbertgzj, Total; 960242-BNY-T (Total);312561-Lnqgg LDL-P; 970712-HZN Size; 389911-EB-FH Scorewas developed and its performance characteristics determinedby Stamplay. It has not been cleared or approved by the Foodand Drug Administration.PATIENT WAS FASTINGPERFORMED BY: [facility] [address] [id number] BY: [employer]6370 [facility] [id number] Potassium [Moles/Vol] 4.4 mmol/L Normal 3.5-5.2 [facility] Internal Medicine Work Phone: Comment on above: Test(s) 145133-GHR-I ; 958927-ZIE-T; 300317-GQH-Y; 688283-Odtahkxmzoonw; 611544-Yeexscuyxpi, Total; 398422-HMY-T (Total);209824-Jtdyo LDL-P; 282400-UEH Size; 608326-LI-BL Scorewas developed and its performance characteristics determinedby Stamplay. It has not been cleared or approved by the Foodand Drug Administration.PATIENT WAS FASTINGPERFORMED BY: [employer] [id number] BY: Peg[employer] Imaging CorporationInscription House Health CenterBedmcv8506 [facility] [id number] Protein [Mass/Vol] 7.5 g/dL Normal 6.0-8.5 [facility] Internal Medicine Work Phone: Comment on above: Test(s) 601479-IVO-K ; 208593-IQI-X; 294964-QOL-S; 320469-Bpxukltyuvbjt; 900928-Gjhdoqukafa, Total; 674662-PLF-F (Total);498602-Cfvdf LDL-P; 140713-OBI Size; 288800-CK-SC Scorewas developed and its performance characteristics determinedby Stamplay. It has not been cleared or approved by the Foodand Drug Administration.PATIENT WAS FASTINGPERFORMED BY: [facility] [address] [id number] BY: Peg[employer] Imaging CorporationRobert Wood Johnson University HospitalWoskbg2110 [facility] [id number] Sodium [Moles/Vol] 139 mmol/L Normal 134-144 [facility] Internal Medicine Work Phone: Comment on above: Test(s) 511550-LLS-Z ; 863523-MCQ-F; 678406-WJX-Z; 407032-Bffmaixfezplj; 623350-Gocrjtvtnhl, Total; 047210-BFC-K (Total);991001-Khoxc LDL-P; 316068-MSA Size; 655812-WW-IU Scorewas developed and its performance characteristics determinedby Stamplay. It has not been cleared or approved by the Foodand Drug Administration.PATIENT WAS FASTINGPERFORMED BY: [employer] [id number] BY: Peg[employer] Imaging CorporationInscription House Health CenterPiqhhl6756 [facility] [id number] Urea nitrogen [Mass/Vol] 12 mg/dL Normal 6-24 [facility] Internal Medicine Work Phone: Comment on above: Test(s) 046247-QLK-W ; 796069-MKG-K; 762432-VCX-L; 486137-Xsukurlpgurch; 557391-Zulhlzarhlb, Total; 995588-ILF-L (Total);489007-Vbrar LDL-P; 439158-XFM Size; 043394-WH-GQ Scorewas developed and its performance characteristics determinedby Stamplay. It has not been cleared or approved by the Foodand Drug Administration.PATIENT WAS FASTINGPERFORMED BY: [facility] [address] [id number] BY: SMGBB70 [facility] [id number] Urea nitrogen/Creatinine [Mass ratio] 14 mg/mg Normal 04-10 [facility] Work Phone: Comment on above: Test(s) 129172-EPI-O ; 486599-KAA-X; 374763-QXM-L; 042313-Hchzbfpttcwjh; 287085-Quzxkorutrk, Total; 398302-TRK-D (Total);980249-Kltky LDL-P; 967356-XJE Size; 719579-KZ-GL Scorewas developed and its performance characteristics determinedby Stamplay. It has not been cleared or approved by the Foodand Drug Administration.PATIENT WAS FASTINGPERFORMED BY: [facility] [address] [id number] BY: [place] [employer] Wlvtut8381 [facility] [id number] MICROALBUMINOrdered By: Syst em Horse Rancher on 12-24-2019 Albumin DL <= 20 mg/L (U) [Mass/Vol] 5.3 ug/mL Normal [facility] Work Phone: Comment on above: Test(s) 620046-GEI-S ; 071504-MHU-U; 389012-SUM-V; 140551-Omdhovyodszca; 762295-Jwuckmlxbpe, Total; 081835-DKB-W (Total);939273-Pwkgb LDL-P; 127681-MAZ Size; 762573-OI-PJ Scorewas developed and its performance characteristics determinedby Stamplay. It has not been cleared or approved by the Foodand Drug Administration.PATIENT WAS FASTINGPERFORMED BY: [facility] [address] [id number] BY: [employer]Data Kgszpb7211 [facility] [id number] Albumin/Creatinine (U) [Mass ratio] 6 {mg/g_creat} Normal 0-29 [facility] Work Phone: Comment on above: Normal: 0 - 29 Moder ately increased: 30 - 300 Severely increased: >300 Please note reference interval change Test(s) 153079-ZBR-N ; 109499-FEP-F; 876813-ZYQ-C; 699418-Ertmpgzxydfpk; 840453-Hwwsgjkimbk, Total; 152721-JAA-G (Total);899544-Lafpa LDL-P; 076391-QLD Size; 747930-DT-YQ Scorewas developed and its performance characteristics determinedby Stamplay. It has not been cleared or approved by the Foodand Drug Administration.PATIENT WAS FASTINGPERFORMED BY: [facility] [address] [id number] BY: SMGBB70 [facility] [id number] Creatinine (U) [Mass/Vol] 87.9 mg/dL Normal [facility] Work Phone: Comment on above: Test(s) 393215-WGR-E ; 010338-ZRY-W; 597843-YLO-V; 388599-Luuhufsupyxwr; 374426-Vpdfruvziqy, Total; 597698-AIM-U (Total);104775-Qhvpg LDL-P; 859178-SAS Size; 329519-VM-EV Scorewas developed and its performance characteristics determinedby Stamplay. It has not been cleared or approved by the Foodand Drug Administration.PATIENT WAS FASTINGPERFORMED BY: [facility] [address] [id number] BY: ScalingDataRobert Wood Johnson University HospitalGebryw1091 [facility] [id number] NMR Profile (37394)Ordered B y: Calliope Player on 12-24-2019 Cholesterol [Mass/Vol] 149 mg/dL Normal 100-199 [facility] Internal Medicine Work Phone: Comment on above: Test(s) 277828-HKN-Z ; 155648-AGJ-W; 078366-RVH-Q; 411674-Jaytydarzptts; 142913-Wultrjkarfz, Total; 753621-CYC-Z (Total);220882-Zlrqg LDL-P; 418063-ZEK Size; 394685-ER-JO Scorewas developed and its performance characteristics determinedby Stamplay. It has not been cleared or approved by the Foodand Drug Administration.PATIENT WAS FASTINGPERFORMED BY: [employer] [place] [address] [id number] BY: SoftWrit[employer] HoldingsGood Hope Hospital [id number] Lipoprotein.alpha [Moles/Vol] 31.2 umol/L Normal [facility] Internal Medicine Work Phone: Comment on above: Test(s) 322494-GNJ-U ; 474542-WJB-U; 580466-UOW-N; 978290-Klykldafuvtur; 920514-Zjgororioyj, Total; 549317-EYZ-N (Total);070929-Djgbg LDL-P; 706081-XMS Size; 250633-ZW-DE Scorewas developed and its performance characteristics determinedby Stamplay. It has not been cleared or approved by the Foodand Drug Administration.PATIENT WAS FASTINGPERFORMED BY: SpaceList[address] [id number] BY: SMGBB70 G-Innovator Research & CreationGood Hope Hospital [id number] Lipoprotein.beta.subpar ticle [Entitic length] 19.[address] [facility] Internal Medicine Work Phone: Comment on above: INTERPRETATIVE INFORMATION PARTICLE CONCENTRATION AND SIZE <--Lower CVD Risk Higher CVD Risk--> LDL AND HDL PARTICLES Percentile in Reference Population HDL-P (total) High 75th 50th 25th Low >34.9 34.9 30.5 26.7 <26.7 . Small LDL-P Low 25th 50th 75th High <117 117 527 839 >839 . LDL Size <-Large (Pattern A)-> <-Small (Pattern B)-> 23.0 20.6 20.5 19.0 Smal l LDL-P and LDL Size are associated with CVD risk, but not afterLDL-P is taken into account. Test(s) 431503-MVF-A ; 078738-PTO-Z; 842482-VSK-J; 355485-Zjnexiejhmnch; 290602-Cyyerlcdgtk, Total; 583407-CPV-G (Total);050651-Gqdtq LDL-P; 742889-OPM Size; 556290-XH-VS Scorewas developed and its performance characteristics determinedby [employer]am[employer]. It has not been cleared or approved by the Foodand Drug Administration.PATIENT WAS FASTINGPERFORMED BY: [facility] [address] [id number] BY: LabPIE SoftwareMorgan V[place] 9235970 [facility] [id number] Lipoprotein.beta.subpar ticle [Moles/Vol] 949 nmol/L Normal [facility] Work Phone: Comment on above: Low < 1000 Moderate 1000 - 1299 Borderline-High 1300 - 1599 High 1600 - 2000 Very High > 2000 Test(s) 192119-QGR-M ; 179250-JQM-B; 797202-DQR-S; 091482-Ttqsbijwmhhwm; 055509-Fkfsbyegxxc, Total; 731278-SYN-H (Total);714536-Efjnw LDL-P; 053597-ZPW Size; 171489-JH-VL Scorewas developed and its performance characteristics determinedby Stam[employer]. It has not been cleared or approved by the Foodand Drug Administration.PATIENT WAS FASTINGPERFORMED BY: [employer] [id number] BY: [employer] Imaging CorporationRobert Wood Johnson University HospitalIojjvk7236 [facility] [id number] Lipoprotein.beta.subpar ticle.small [Moles/Vol] 605 nmol/L Abnormal Comprehe nsive Internal Medicine Work Phone: Comment on above: Test(s) 120806-UYX-R ; 333492-ZKI-M; 761544-BFA-G; 738404-Bxkjmjmnfowmy; 222660-Kvhwtcgqheg, Total; 628178-ZHN-J (Total);519296-Aambq LDL-P; 493578-FMT Size; 827920-YE-BI Scorewas developed and its performance characteristics determinedby [employer]. It has not been cleared or approved by the Foodand Drug Administration.PATIENT WAS FASTINGPERFORMED BY: [facility] [address] [id number] BY: [employer] Imaging CorporationRobert Wood Johnson University HospitalCbkozu8272 [facility] [id number] Triglyceride [Mass/Vol] 279 mg/dL Abnormal 0-149 [facility] daytonensive [facility] Work Phone: Comment on above: Test(s) 637872-CGZ-S ; 153273-DFN-G; 499628-SSC-D; 714794-Cctnbyerkwypi; 850817-Numrqixchlh, Total; 411064-YRY-F (Total);438425-Caork LDL-P; 087313-RMP Size; 895197-BM-HW Scorewas developed and its performance characteristics determinedby Stam[employer]. It has not been cleared or approved by the Foodand Drug Administration.PATIENT WAS FASTINGPERFORMED BY: [employer] [id number] BY: [employer] Imaging CorporationRobert Wood Johnson University HospitalFnclhz2063 [facility] [id number] NMR Profile (14974) 41 mg/dL Normal Compr ensive Internal Medicine Work Phone: Comment on above: Test(s) 968434-GWI-W ; 668161-DGK-W; 695788-EQL-C; 911760-Yeblqmhqcvhyv; 904183-Gqlohjawhbd, Total; 824972-UDK-V (Total);499005-Fntdj LDL-P; 786537-HBP Size; 556273-HA-TE Scorewas developed and its performance characteristics determinedby Stam[employer]. It has not been cleared or approved by the Foodand Drug Administration.PATIENT WAS FASTINGPERFORMED BY: SpaceList[address] [id number] BY: SMGBB70 [facility] [id number] NMR Profile (11484) 52 mg/dL Normal 0-99 [facility] ehensive Internal Medicine Work Phone: Comment on above: . Optimal < 100 Abov e optimal 100 - 129 Borderline 130 - 159 High 160 - 189 Very high > 189 .LDL-C is inaccurate if patient is non-fasting. Test(s) 983418-JQL-P ; 178788-WXD-H; 776972-XJX-B; 350409-Lbfueukuxybux; 469734-Atmzdyixlqt, Total; 488925-CSL-F (Total);545719-Cmhdi LDL-P; 265539-VPC Size; 475229-RR-TL Scorewas developed and its performance characteristics determinedby Stam[employer]. It has not been cleared or approved by the Foodand Drug Administration.PATIENT WAS FASTINGPERFORMED BY: SpaceList[address] [id number] BY: [employer]6370 [facility] [id number] NMR Profile (25332) 279 mg/dL Abnormal 0-149 Compr ehensive Internal Medicine; [facility] Work Phone: NMR Profile (09692) 149 mg/dL Normal 100-199 Compr ehensive Internal Medicine; [facility] Work Phone: TSH (42912)Ordered By: Teodora Hardy on 12-24-2019 TSH Qn 3.460 {uIU/mL} Normal 0.450-4.50 0 [facility] Work Phone: Comment on above: Test(s) 310963-TBV-Q ; 005439-YPR-B; 013229-RMJ-C; 921822-Wgunepikrwjvj; 257167-Pgfefaoplgy, Total; 131765-MYH-Z (Total);477919-Aeacj LDL-P; 138749-MDQ Size; 979776-HF-WJ Scorewas developed and its performance characteristics determinedby Stamplay. It has not been cleared or approved by the Foodand Drug Administration.PATIENT WAS FASTINGPERFORMED BY: [facility] [address] [id number] BY: SMGBB70 [facility] CreationGood [facility] Hospital [id number] URINALYSIS, W/ MICRO (07328) Ordered By: Calliope Player on 12-24-2019 Appearance (U) Clear Normal Comprehens arianna Internal Medicine Work Phone: Comment on above: Test(s) 774437-ALK-E ; 039364-NUA-X; 361053-GZN-G; 158098-Yhrbqqwjmosxm; 003466-Hizqtdezpxf, Total; 434904-WVG-R (Total);891191-Cfakz LDL-P; 541828-GMV Size; 919325-SC-VH Scorewas developed and its performance characteristics determinedby Stamplay. It has not been cleared or approved by the Foodand Drug Administration.PATIENT WAS FASTINGPERFORMED BY: [facility] [address] [id number] BY: [employer]6370 [facility] CreationGood [facility] Hospital [id number] Bilirubin Ql (U) Negative Normal Comprehe nsive Internal Medicine Work Phone: Comment on above: Test(s) 117374-SQO-A ; 658234-GHN-W; 097923-FXD-G; 895705-Pvjnyzmtbuwjf; 991234-Hhbpssbdqsr, Total; 887041-SNT-S (Total);391728-Mjrii LDL-P; 563790-FNU Size; 280425-PD-XG Scorewas developed and its performance characteristics determinedby Stam[employer]. It has not been cleared or approved by the Foodand Drug Administration.PATIENT WAS FASTINGPERFORMED BY: [facility] [address] [id number] BY: [employer] Xoxftp7296 [facility] [id number] Bilirubin Ql (U) Negative Normal Comprehe nsive Internal Medicine; [facility] Work Phone: Comment on above: Test(s) 079197-GLM-N ; 890972-SJI-J; 995815-LET-H; 543156-Jnacoootxvnwi; 076500-Qvozdvkuisl, Total; 750408-NIC-L (Total);193242-Ijthl LDL-P; 867335-YVV Size; 649799-AO-VP Scorewas developed and its performance characteristics determinedby Stamplay. It has not been cleared or approved by the FoodEmay [employer] Drug Administration.PATIENT WAS FASTINGPERFORMED BY: SpaceList[address] [id number] BY: [employer]6370 [facility] [id number] Color (U) Yellow Normal [facility] Work Phone: Comment on above: Test(s) 525486-IOO-H ; 481207-RRP-P; 796757-WGF-H; 994958-Rlbzygyevculo; 327817-Qddobpufgzr, Total; 003050-LIE-Q (Total);460349-Sskxy LDL-P; 593962-BTJ Size; 417250-QO-YW Scorewas developed and its performance characteristics determinedby Stamplay. It has not been cleared or approved by the [employer] Drug Administration.PATIENT WAS FASTINGPERFORMED BY: [facility] [address] [id number] BY: ScalingData Mwcuvl8770 [facility] [id number] Glucose Ql (U) Negative Normal Comprehens arianna Internal [facility] Work Phone: Comment on above: Test(s) 109313-YUK-H ; 987853-ZAS-T; 921417-EKM-B; 215017-Fxdivadqafahe; 188836-Urkklcvsagt, Total; 187411-HAF-W (Total);993411-Wzhbb LDL-P; 337736-RLS Size; 515623-CS-CA Scorewas developed and its performance characteristics determinedby Stamplay. It has not been cleared or approved by the Foodand Drug Administration.PATIENT WAS FASTINGPERFORMED BY: [facility] [address] [id number] BY: SMGBB70 [facility] CreationGood [facility] Hospital [id number] Glucose Ql (U) Negative Normal Comprehens [facility]; [facility] Work Phone: Comment on above: Test(s) 649420-LZW-Q ; 077324-KJN-P; 547445-NFF-S; 620950-Anouffjzpohix; 448989-Kcdwnjvnwwm, Total; 898352-BUU-F (Total);996506-Ctcsz LDL-P; 574084-GRX Size; 803430-GV-UQ Scorewas developed and its performance characteristics determinedby Stam[employer]. It has not been cleared or approved by the Foodand Drug Administration.PATIENT WAS FASTINGPERFORMED BY: [facility] [address] [id number] BY: SMGBB70 [facility] CreationGood [facility] Hospital [id number] Hemoglobin Ql (U) Negative Normal Compreh ensive Internal Medicine Work Phone: Comment on above: Test(s) 090152-KUL-H ; 476169-NTP-Y; 327332-OHJ-S; 952289-Aicjxvqzjruor; 674338-Pwrtbpmvdev, Total; 604675-YSJ-Z (Total);817562-Hwyyc LDL-P; 413766-PTJ Size; 161601-JB-LK Scorewas developed and its performance characteristics determinedby Stamplay. It has not been cleared or approved by the Foodand Drug Administration.PATIENT WAS FASTINGPERFORMED BY: [facility] [address] [id number] BY: SMGBB70 [facility] NameMediaGood [facility] Hospital [id number] Hemoglobin Ql (U) Negative Normal Compreh ensive Internal Medicine; [facility] Work Phone: Comment on above: Test(s) 482458-AEL-E ; 821681-QBY-P; 068073-CBQ-R; 171379-Zelgndxftnfbg; 041659-Xwkgofmlaeo, Total; 277349-XHG-N (Total);119871-Ttknk LDL-P; 892492-TBR Size; 659488-EM-SZ Scorewas developed and its performance characteristics determinedby Stamplay. It has not been cleared or approved by the Foodand Drug Administration.PATIENT WAS FASTINGPERFORMED BY: SpaceList[address] [id number] BY: SMGBB70 [facility] [id number] Ketones Ql (U) Negative Normal Comprehens [facility] Work Phone: Comment on above: Test(s) 394395-BCM-O ; 610871-PUN-I; 149811-KYZ-K; 316597-Ypjpbeomnxbjp; 048647-Anpomqfnswk, Total; 887620-DXU-J (Total);510788-Iekcf LDL-P; 527811-YJW Size; 457065-CS-YQ Scorewas developed and its performance characteristics determinedby Stamplay. It has not been cleared or approved by the Foodand Drug Administration.PATIENT WAS FASTINGPERFORMED BY: [facility] [address] [id number] BY: [employer] Ewyyqf7267 [facility] [id number] Ketones Ql (U) Negative Normal Comprehens [facility]; [facility] Work Phone: Comment on above: Test(s) 868459-WJV-S ; 610359-BUF-J; 052484-TBA-W; 393796-Oaapalpgegoyx; 171974-Jjpkrnrxtrc, Total; 340811-MEA-Y (Total);033219-Pkkue LDL-P; 107067-AHS Size; 605281-HS-OD Scorewas developed and its performance characteristics determinedby Stam[employer]. It has not been cleared or approved by the Foodand Drug Administration.PATIENT WAS FASTINGPERFORMED BY: [facility] [address] [id number] BY: [employer] Imaging CorporationRobert Wood Johnson University HospitalYeityw4572 [facility] [id number] Leukocyte esterase Test strip Ql (U) Negative Normal [facility] Work Phone: Comment on above: Test(s) 840560-RGZ-H ; 538535-BIE-F; 823384-UGM-C; 225089-Hvhmtmpvebbhf; 940438-Nxdumkxapjy, Total; 937786-GKG-S (Total);834351-Nqkyr LDL-P; 973841-CSR Size; 546776-QA-GY Scorewas developed and its performance characteristics determinedby Stamplay. It has not been cleared or approved by the Foodand Drug Administration.PATIENT WAS FASTINGPERFORMED BY: [facility] [address] [id number] BY: [employer] Kytsjm6273 [facility] [id number] Leukocyte esterase Test strip Ql (U) Negative Normal [facility]; [facility] Work Phone: Comment on above: Test(s) 468757-LEU-T ; 557908-TVZ-A; 894824-XDI-J; 385957-Etyplvofvwlha; 438875-Dapqqernsgp, Total; 798483-OBN-U (Total);991915-Jadsy LDL-P; 021837-HJU Size; 508412-ZH-DK Scorewas developed and its performance characteristics determinedby Stamplay. It has not been cleared or approved by the Foodand Drug Administration.PATIENT WAS FASTINGPERFORMED BY: [facility] [address] [id number] BY: ScalingDataRobert Wood Johnson University HospitalNfgqiz4940 [facility] [id number] Microscopic observation LM Nom (Urine sed) MICRON Normal [facility] Work Phone: Comment on above: Microscopic follows if indicated. Test(s) 121963-JFD-V ; 682902-PJF-D; 356296-STR-U; 646851-Qggxfbdrbazox; 255011-Djfzjlkxtcg, Total; 684480-BLY-J (Total);319651-Jpklc LDL-P; 958549-TCH Size; 353273-VD-YR Scorewas developed and its performance characteristics determinedby Stam[employer]. It has not been cleared or approved by the Foodand Drug Administration.PATIENT WAS FASTINGPERFORMED BY: SpaceList[address] [id number] BY: SMGBB70 [facility] [id number] Microscopic observation LM Nom (Urine sed) See below: Normal [facility] Work Phone: Comment on above: Microscopic was lynnette cated and was performed. Test(s) 505024-WVR-V ; 152594-KFD-H; 230495-CNC-N; 097515-Skldousehckju; 868749-Lgzpqgdkyut, Total; 490422-QCX-H (Total);760046-Nefes LDL-P; 217958-EFP Size; 036450-OS-LB Scorewas developed and its performance characteristics determinedby Stamplay. It has not been cleared or approved by the Foodand Drug Administration.PATIENT WAS FASTINGPERFORMED BY: SpaceList[address] [id number] BY: [employer]6370 [facility] [id number] Nitrite Ql (U) Negative Normal Comprehens [facility] Work Phone: Comment on above: Test(s) 429892-YMH-Y ; 561282-ZJF-M; 897764-KMM-U; 302710-Fqzclhbanfadt; 097118-Zveczgtjlpe, Total; 936706-MZG-K (Total);324563-Ddnxx LDL-P; 457326-ENE Size; 868790-NN-AI Scorewas developed and its performance characteristics determinedby Stam[employer]. It has not been cleared or approved by the Foodand Drug Administration.PATIENT WAS FASTINGPERFORMED BY: SpaceList[address] [id number] BY: [employer]6370 [facility] CreationGood [facility] Hospital [id number] Nitrite Ql (U) Negative Normal Comprehens [facility]; [facility] Work Phone: Comment on above: Test(s) 297473-JDF-V ; 367684-KVH-K; 709557-XLF-Q; 554009-Nybcwjwfiojtw; 739017-Mtweyfjpdlb, Total; 238409-MNY-V (Total);033418-Weota LDL-P; 208196-REL Size; 978621-VO-DM Scorewas developed and its performance characteristics determinedby Stamplay. It has not been cleared or approved by the Foodand Drug Administration.PATIENT WAS FASTINGPERFORMED BY: SpaceList[address] [id number] BY: [employer]6370 [facility] CreationGood [facility] Hospital [id number] pH (U) 7.0 [pH] Normal 5.0-7.5 [facility] Work Phone: Comment on above: Test(s) 108421-UAH-I ; 309041-TCT-Z; 869432-FNE-B; 316083-Rsxxxsihmpfsk; 010639-Pllzihvpflu, Total; 224646-EHG-B (Total);338021-Srzmf LDL-P; 145820-UBA Size; 206723-HM-FC Scorewas developed and its performance characteristics determinedby Stamplay. It has not been cleared or approved by the Foodand Drug Administration.PATIENT WAS FASTINGPERFORMED BY: [facility] [address] [id number] BY: [employer]6370 [facility] CreationGood [facility] Hospital [id number] Protein Ql (U) Negative Normal Comprehens [facility] Work Phone: Comment on above: Test(s) 648223-MRB-Z ; 927994-GDQ-W; 024425-XOQ-X; 612609-Bhyrilvjjayls; 682980-Ezitfytfyet, Total; 808328-JRF-D (Total);018289-Gaciv LDL-P; 356695-OEF Size; 649990-HB-CF Scorewas developed and its performance characteristics determinedby Stam[employer]. It has not been cleared or approved by the Foodand Drug Administration.PATIENT WAS FASTINGPERFORMED BY: [facility] [address] [id number] BY: SMGBB70 [place] MergeLocalUNC Health [facility] [id number] Protein Ql (U) Negative Normal Comprehens [facility]; [facility] Work Phone: Comment on above: Test(s) 691723-ZJG-W ; 689020-NHC-S; 906016-LRC-O; 070256-Qhlgtlwupsojh; 156034-Eisijoaonrl, Total; 982965-ONZ-E (Total);425776-Wjnwy LDL-P; 920098-GMZ Size; 253509-KU-PE Scorewas developed and its performance characteristics determinedby Stam[employer]. It has not been cleared or approved by the Foodand Drug Administration.PATIENT WAS FASTINGPERFORMED BY: [facility] [address] [id number] BY: SMGBB70 [place] MergeLocalUNC Health [facility] [id number] Specific gravity (U) [Rel density] 1.016 1 Normal 1.005-1.03 0 [facility] Work Phone: Comment on above: Test(s) 065649-UFE-G ; 080445-YNX-D; 145694-CCV-U; 735963-Sdbyapbxfxxeb; 557153-Wdvvyyhhwvx, Total; 666610-AYO-T (Total);475574-Pxupg LDL-P; 496025-NFL Size; 383000-YV-KM Scorewas developed and its performance characteristics determinedby Stam[employer]. It has not been cleared or approved by the Foodand Drug Administration.PATIENT WAS FASTINGPERFORMED BY: [facility] [address] [id number] BY: [employer]6370 [facility] [id number] Urobilinogen (U) [Mass/Vol] 0.2 mg/dL Normal 0.2-1.0 [facility]; [facility] Work Phone: Comment on above: Test(s) 450531-IMQ-L ; 754911-OEG-N; 562092-GRX-U; 623803-Tnkelxyrfaklh; 221399-Yelvcwecjwy, Total; 927021-FLE-E (Total);303481-Lpucj LDL-P; 642626-CEH Size; 490634-CG-HE Scorewas developed and its performance characteristics determinedby Stam[employer]. It has not been cleared or approved by the Foodand Drug Administration.PATIENT WAS FASTINGPERFORMED BY: [employer] [place] [address] [id number] BY: SMGBB70 adQUNC Health Chatham [id number] Urobilinogen Test strip (U) [Mass/Vol] 0.2 mg/dL Normal 0.2-1.0 [facility] Internal Medicine Work Phone: Comment on above: Test(s) 947165-RYM-K ; 558169-AVU-O; 864548-JHU-T; 641003-Uixazbblnmhpp; 273027-Fjihwzfnrov, Total; 757853-ZBF-R (Total);705260-Wmpvk LDL-P; 439748-JHP Size; 221530-UX-EC Scorewas developed and its performance characteristics determinedby Stam[employer]. It has not been cleared or approved by the Foodand Drug Administration.PATIENT WAS FASTINGPERFORMED BY: [employer] [place] [address] [id number] BY: [employer]6370 [facility] [id number] XR TOE 3V AP/LAT/OBL RTon XR TOE 3V AP/LAT/OBL RT * * *Final Repor t* * * DATE OF EXAM: Dec 22 2019 9:14PM LDX 5269 - XR TOE 3V AP/LAT/OBL RT / PROCEDURE REASON: Fracture of toe * * * * Physician Interpretation * * * * EXAM TITLE: XR TOE 3V AP/LAT/OBL RT DATE: 12/22/2019 COMPARISON: None. CLINICAL INDICATION/HISTORY: Heavy object fell on left great toe, presents with pain and swelling TECHNIQUE: AP, lateral and oblique views of the left great toe FINDINGS: There is a displaced fracture involving the medial tuft of the first distal phalanx. No other fracture. No dislocation. Mild osteoarthritis at the first MTP joint. IMPRESSION: Slightly displaced fracture involving the medial tuft of the first distal phalanx. Wool Supplier: [employer] Transcribe Date/Time: Dec 22 2019 9:17P Dictated by : BROOK THAKKAR MD This examination was interpreted and the report reviewed and electronically signed by: BROOK THAKKAR MD on Dec 22 2019 9:19PM EST Normal [place] [facility] System CBC with auto diff (03129)Or dered By: Calliope Player on 04-13-2019 Basophils (Bld) [#/Vol] 0.1 {x10E3/uL} Normal 0.0-0.2 [facility] Work Phone: Comment on above: Test(s) 018783-WAX-D ; 741975-JDH-P; 646231-CLL-N; 821786-Risirxrnxhqwc; 093835-Zwgmvfahlxr, Total; 246197-SJZ-Z (Total);019262-Dnvdo LDL-P; 398565-NVS Size; 690246-TO-CH Scorewas developed and its performance characteristics determinedby Stam[employer]. It has not been cleared or approved by the Foodand Drug Administration.PATIENT WAS FASTINGPERFORMED BY: [facility] [address] [id number] BY: LabCoRobert Wood Johnson University HospitalCxzfmg4999 [facility] [id number] Basophils (Bld) [#/Vol] 0.1 10*3/uL Normal 0.0-0.2 [facility]; [facility] Work Phone: Comment on above: Test(s) 260586-OTB-D ; 489790-DAR-K; 047673-GXY-M; 694563-Dxuedpefbcibw; 631920-Akhhcpmoxxr, Total; 206697-DZU-G (Total);234441-Ktpzk LDL-P; 773759-APL Size; 009040-CK-EH Scorewas developed and its performance characteristics determinedby [employer]am[employer]. It has not been cleared or approved by the Foodand Drug Administration.PATIENT WAS FASTINGPERFORMED BY: [employer] [id number] BY: [employer] Wfucvz4159 [facility] [id number] Basophils/100 WBC (Bld) 1 % Normal [facility] Internal Medicine Work Phone: Comment on above: Test(s) 106081-QGL-N ; 145735-FIX-C; 685235-GFS-B; 562610-Ducizdnswcdpi; 405873-Xaapecqmpow, Total; 109172-SHY-J (Total);551182-Lxeab LDL-P; 319893-CKK Size; 402062-NI-PG Scorewas developed and its performance characteristics determinedby [employer]. It has not been cleared or approved by the Foodand Drug Administration.PATIENT WAS FASTINGPERFORMED BY: [facility] [address] [id number] BY: SMGBB70 [place] MergeLocalUNC Health [facility] [id number] Eosinophils (Bld) [#/Vol] 0.4 {x10E3/uL} Normal 0.0-0.4 [facility] Internal Medicine Work Phone: Comment on above: Test(s) 284624-QQZ-L ; 228781-LOQ-F; 330052-EUS-S; 074863-Ovqtdrrmxiqou; 626813-Dvegwotgsqr, Total; 683467-KQL-W (Total);150000-Ifxgk LDL-P; 173554-AJG Size; 838733-IP-LG Scorewas developed and its performance characteristics determinedby [employer]. It has not been cleared or approved by the Foodand Drug Administration.PATIENT WAS FASTINGPERFORMED BY: Shop[employer]at[address] [id number] BY: [employer] Mextlw5297 [facility] [id number] Eosinophils (Bld) [#/Vol] 0.4 10*3/uL Normal 0.0-0.4 [facility]; [facility] Work Phone: Comment on above: Test(s) 387826-QWR-I ; 420594-PYQ-X; 477348-FDL-O; 262227-Ktgxoltpzxknj; 769944-Ajnbljnduij, Total; 134082-ILR-I (Total);053882-Bzcax LDL-P; 609163-CVS Size; 373719-ZL-JH Scorewas developed and its performance characteristics determinedby [employer]. It has not been cleared or approved by the Foodand Drug Administration.PATIENT WAS FASTINGPERFORMED BY: SpaceList[address] [id number] BY: SMGBB70 [facility] [id number] Eosinophils/100 WBC (Bld) 5 % Normal [facility] Work Phone: Comment on above: Test(s) 066876-FUH-J ; 405221-ZBI-E; 692154-GWR-C; 366408-Bfzlaikeomvcd; 139058-Zejzfrxelvy, Total; 724206-GIT-J (Total);156985-Sisxj LDL-P; 936938-AFE Size; 455356-ON-PB Scorewas developed and its performance characteristics determinedby [employer]. It has not been cleared or approved by the Foodand Drug Administration.PATIENT WAS FASTINGPERFORMED BY: [facility] [address] [id number] BY: [employer]6370 [facility] [id number] Erythrocyte distribution width (RBC) [Ratio] 14.8 % Normal 12.3-15.4 [facility] Work Phone: Comment on above: Test(s) 252426-KXT-O ; 444739-BUF-W; 179466-XBR-Y; 795790-Awrjtcbpjupdd; 230537-Ctcbmvtqcwt, Total; 034735-EUR-F (Total);343022-Ygagm LDL-P; 251604-DPK Size; 026941-XI-XE Scorewas developed and its performance characteristics determinedby [employer]. It has not been cleared or approved by the Foodand Drug Administration.PATIENT WAS FASTINGPERFORMED BY: [facility] [address] [id number] BY: [employer] Hseapr6550 [facility] [id number] Hematocrit (Bld) [Volume fraction] 44.9 % Normal 37.5-51.0 [facility] Work Phone: Comment on above: Test(s) 872409-IIP-Z ; 838512-DXD-Y; 988301-MMN-P; 847545-Alldpugawbnmr; 584059-Gubjbbwbpma, Total; 118939-SQW-U (Total);661875-Ogpcn LDL-P; 183771-XND Size; 816649-LJ-NE Scorewas developed and its performance characteristics determinedby [employer]. It has not been cleared or approved by the Foodand Drug Administration.PATIENT WAS FASTINGPERFORMED BY: [facility] [address] [id number] BY: [employer]6370 [facility] [id number] Hemoglobin (Bld) [Mass/Vol] 15.7 g/dL Normal 13.0-17.7 [facility] Work Phone: Comment on above: Test(s) 378250-NJJ-M ; 648694-IRR-L; 689842-BRN-S; 678929-Ueoxyrowyjhwb; 101084-Oumsjicqebq, Total; 587077-WOZ-J (Total);029771-Haagl LDL-P; 420459-VTS Size; 897519-YX-YH Scorewas developed and its performance characteristics determinedby [employer]. It has not been cleared or approved by the Foodand Drug Administration.PATIENT WAS FASTINGPERFORMED BY: [facility] [address] [id number] BY: [employer] Hhvbgn2765 [facility] [id number] Immature granulocytes (Bld) [#/Vol] 0.0 {x10E3/uL} Normal 0.0-0.1 [facility] Work Phone: Comment on above: Test(s) 287628-PVQ-I ; 228625-FIY-J; 025716-XCB-O; 146828-Zndtcmbfpnsxh; 038124-Stgmcmdlshw, Total; 843992-VCM-T (Total);538472-Drrss LDL-P; 269671-SYG Size; 278583-BJ-MM Scorewas developed and its performance characteristics determinedby [employer]. It has not been cleared or approved by the Foodand Drug Administration.PATIENT WAS FASTINGPERFORMED BY: [facility] [address] [id number] BY: [facility]imUNC [facility] [id number] Immature granulocytes (Bld) [#/Vol] 0.0 10*3/uL Normal 0.0-0.1 [facility]; [facility] Work Phone: Comment on above: Test(s) 844873-MDA-F ; 456838-ZBV-G; 832330-LKP-K; 253062-Nslwmxkfsehnj; 453466-Keqodwfulhg, Total; 470531-COK-C (Total);739325-Caegm LDL-P; 106144-NXO Size; 423209-GZ-WF Scorewas developed and its performance characteristics determinedby [employer]. It has not been cleared or approved by the Foodand Drug Administration.PATIENT WAS FASTINGPERFORMED BY: [facility] [address] [id number] BY: SMGBB70 [facility] [id number] Immature granulocytes/100 WBC (Bld) 0 % Normal [facility] Work Phone: Comment on above: Test(s) 496449-LCV-L ; 175455-EMQ-Y; 380468-TAG-C; 340905-Zlfmyvlfvxqrp; 451605-Snqtyerxrlc, Total; 224616-XZT-C (Total);885764-Ikhwm LDL-P; 372943-PPR Size; 083742-KL-LP Scorewas developed and its performance characteristics determinedby [employer]. It has not been cleared or approved by the Foodand Drug Administration.PATIENT WAS FASTINGPERFORMED BY: [employer] [id number] BY: [employer] Imaging CorporationRobert Wood Johnson University HospitalKrbvcg4053 [facility] [id number] Lymphocytes (Bld) [#/Vol] 2.0 {x10E3/uL} Normal 0.7-3.1 [facility] Work Phone: Comment on above: Test(s) 099851-HNV-I ; 510096-BIP-V; 937888-EZR-A; 844578-Rdjuwkuewanjk; 093993-Qklzowtfvmi, Total; 287092-FLZ-N (Total);130651-Tlbjb LDL-P; 898046-DQW Size; 381768-VU-FI Scorewas developed and its performance characteristics determinedby [employer]. It has not been cleared or approved by the Foodand Drug Administration.PATIENT WAS FASTINGPERFORMED BY: [employer] [id number] BY: [employer] Imaging CorporationRobert Wood Johnson University HospitalAorkih7060 [facility] [id number] Lymphocytes (Bld) [#/Vol] 2.0 10*3/uL Normal 0.7-3.1 [facility]; [facility] Work Phone: Comment on above: Test(s) 263689-UJT-I ; 836893-BBU-Q; 655123-JHY-R; 125676-Vsocadqblyvfo; 501111-Yszjygrjyxl, Total; 218121-PSN-Q (Total);425287-Lbdgf LDL-P; 489594-ENW Size; 401374-BD-VT Scorewas developed and its performance characteristics determinedby [employer]. It has not been cleared or approved by the Foodand Drug Administration.PATIENT WAS FASTINGPERFORMED BY: [employer] [id number] BY: [employer] Imaging CorporationRobert Wood Johnson University HospitalLiqkhf3223 [facility] [id number] Lymphocytes/100 WBC (Bld) 28 % Normal [facility] Internal Medicine Work Phone: Comment on above: Test(s) 960745-VDY-S ; 891151-RGE-B; 967808-IFW-G; 403453-Zxcosvuaskngk; 965169-Zjkvgouiruq, Total; 114182-REJ-F (Total);351688-Plrje LDL-P; 302418-UUD Size; 471222-ZM-VB Scorewas developed and its performance characteristics determinedby [employer]. It has not been cleared or approved by the Foodand Drug Administration.PATIENT WAS FASTINGPERFORMED BY: SpaceList[address] [id number] BY: SMGBB70 G-Innovator Research & CreationGood Hope Hospital [id number] MCH (RBC) [Entitic mass] 28.4 pg Normal 26.6-33.0 [facility] Internal Medicine Work Phone: Comment on above: Test(s) 890105-YOW-F ; 088210-WIV-W; 385353-PTC-I; 232451-Wujedyyfcvyea; 566822-Eeyvumjwjha, Total; 524876-ESM-H (Total);678049-Yxfhy LDL-P; 011445-EDZ Size; 969790-UI-NL Scorewas developed and its performance characteristics determinedby [employer]. It has not been cleared or approved by the Foodand Drug Administration.PATIENT WAS FASTINGPERFORMED BY: SpaceList[address] [id number] BY: [employer]6370 [facility] [id number] MCHC (RBC) [Mass/Vol] 35.0 g/dL Normal 31.5-35.7 [facility] Internal Medicine Work Phone: Comment on above: Test(s) 624628-MKD-Z ; 343730-GIQ-M; 373929-RVU-O; 093949-Cfhxrvdcyvozy; 394459-Xuxwrdzgumw, Total; 794335-TRE-I (Total);169500-Uyjug LDL-P; 768862-ZDJ Size; 176522-TA-MK Scorewas developed and its performance characteristics determinedby [employer]. It has not been cleared or approved by the Foodand Drug Administration.PATIENT WAS FASTINGPERFORMED BY: [employer] [id number] BY: [employer] CorporationRobert Wood Johnson University HospitalYdtxau1912 [facility] [id number] MCV (RBC) [Entitic vol] 81 fL Normal 79-97 [facility] Internal Medicine Work Phone: Comment on above: Test(s) 854703-IGV-A ; 307006-NTH-C; 485330-VRD-S; 275982-Lzgimoeslabkv; 373048-Pfgwjjaziwh, Total; 001997-DNN-X (Total);018712-Wblgr LDL-P; 888933-EKK Size; 599288-HU-VL Scorewas developed and its performance characteristics determinedby [employer]. It has not been cleared or approved by the Foodand Drug Administration.PATIENT WAS FASTINGPERFORMED BY: [facility] [address] [id number] BY: [employer] Urhqiu6411 [facility] [id number] Monocytes (Bld) [#/Vol] 0.6 {x10E3/uL} Normal 0.1-0.9 [facility] Internal Medicine Work Phone: Comment on above: Test(s) 983091-KLD-E ; 073648-QNZ-U; 823498-ZNF-U; 940701-Cndpnzvskyrlw; 638400-Pmbnpfnxcbl, Total; 245330-XAS-Q (Total);070392-Aylrr LDL-P; 197830-QDV Size; 491913-GE-XE Scorewas developed and its performance characteristics determinedby [employer]. It has not been cleared or approved by the Foodand Drug Administration.PATIENT WAS FASTINGPERFORMED BY: [employer] [id number] BY: [employer] CorporationRobert Wood Johnson University HospitalRkfqaz1372 [facility] [id number] Monocytes (Bld) [#/Vol] 0.6 10*3/uL Normal 0.1-0.9 [facility]; [facility] Work Phone: Comment on above: Test(s) 153402-OLV-D ; 042180-LQE-R; 375729-JJZ-N; 652394-Jfdqpevjrjzii; 311032-Zteecyshdnf, Total; 572565-ZXH-N (Total);121210-Clflu LDL-P; 594100-JZU Size; 873819-ZV-PS Scorewas developed and its performance characteristics determinedby [employer]. It has not been cleared or approved by the Foodand Drug Administration.PATIENT WAS FASTINGPERFORMED BY: SpaceList[address] [id number] BY: SMGBB70 [facility] [id number] Monocytes/100 WBC (Bld) 8 % Normal [facility] Internal Medicine Work Phone: Comment on above: Test(s) 848699-UNH-L ; 182271-QOJ-P; 804090-CWC-M; 530369-Inztwiwkmnsea; 364086-Rjbpbrrwnzl, Total; 085138-HHJ-K (Total);308940-Selvg LDL-P; 774876-SDE Size; 555350-CI-SW Scorewas developed and its performance characteristics determinedby [employer]. It has not been cleared or approved by the Foodand Drug Administration.PATIENT WAS FASTINGPERFORMED BY: SpaceList[address] [id number] BY: [employer]6370 [facility] [id number] Neutrophils (Bld) [#/Vol] 4.1 {x10E3/uL} Normal 1.4-7.0 [facility] Internal Medicine Work Phone: Comment on above: Test(s) 529630-AXP-O ; 770595-PLK-B; 252493-YBC-Z; 224257-Qgeoaramnrwig; 449463-Jrrpupcesjp, Total; 541658-KAE-K (Total);498895-Kulbr LDL-P; 355612-SQO Size; 784791-PX-TJ Scorewas developed and its performance characteristics determinedby [employer]. It has not been cleared or approved by the Foodand Drug Administration.PATIENT WAS FASTINGPERFORMED BY: [facility] [address] [id number] BY: [employer] Odjyhb4788 [facility] [id number] Neutrophils (Bld) [#/Vol] 4.1 10*3/uL Normal 1.4-7.0 [facility]; [facility] Work Phone: Comment on above: Test(s) 966598-HPS-A ; 163665-YDY-V; 220051-NTB-U; 422055-Hciptdkggpvjl; 654346-Brftpmtemyv, Total; 669192-WBY-P (Total);738873-Noqvu LDL-P; 970803-EVA Size; 838485-PY-EH Scorewas developed and its performance characteristics determinedby [employer]. It has not been cleared or approved by the Foodand Drug Administration.PATIENT WAS FASTINGPERFORMED BY: [facility] [address] [id number] BY: SMGBB70 [place] MergeLocalUNC Health [facility] [id number] Neutrophils/100 WBC (Bld) 58 % Normal [facility] Internal Medicine Work Phone: Comment on above: Test(s) 781162-MTI-O ; 293304-RKU-E; 927788-YFG-A; 967460-Mimpcgkhtsnko; 347195-Pounvoncxeb, Total; 679447-VQD-T (Total);820399-Ufdrz LDL-P; 912872-RNL Size; 195881-ZJ-HG Scorewas developed and its performance characteristics determinedby [employer]. It has not been cleared or approved by the Foodand Drug Administration.PATIENT WAS FASTINGPERFORMED BY: [facility] [address] [id number] BY: ScalingDataInscription House Health CenterLafwyj3120 [facility] [id number] Platelets (Bld) [#/Vol] 263 {x10E3/uL} Normal 150-450 [facility] Work Phone: Comment on above: Test(s) 535206-NXM-K ; 009427-EKQ-U; 836212-EVP-N; 259960-Dloltoroltwvh; 162814-Vgaesjbsbhs, Total; 544667-GAR-B (Total);223301-Cflvv LDL-P; 480870-LAO Size; 228798-MH-JK Scorewas developed and its performance characteristics determinedby [employer]. It has not been cleared or approved by the Foodand Drug Administration.PATIENT WAS FASTINGPERFORMED BY: SpaceList[address] [id number] BY: SoftWriters HoldingsGood Hope Hospital [id number] Platelets (Bld) [#/Vol] 263 10*3/uL Normal 150-450 [facility] Internal Medicine; [facility] Internal Medicine Work Phone: Comment on above: Test(s) 519587-IOE-B ; 604535-ZYB-P; 991022-LIH-O; 118345-Hjydcsowjhafv; 806207-Anfojopzvxk, Total; 105233-YCZ-U (Total);471284-Edhun LDL-P; 139876-RBM Size; 500242-JA-LD Scorewas developed and its performance characteristics determinedby [employer]. It has not been cleared or approved by the Foodand Drug Administration.PATIENT WAS FASTINGPERFORMED BY: [facility] [address] [id number] BY: SMGBB70 [facility] [id number] RBC (Bld) [#/Vol] 5.52 {x10E6/uL} Normal 4.14-5.80 [facility] Internal Medicine Work Phone: Comment on above: Test(s) 845996-URL-X ; 658124-FZQ-W; 526110-XAV-H; 801432-Lwsactsjbnddh; 283321-Ztpqazlskde, Total; 972754-UFS-V (Total);350564-Cziwi LDL-P; 537877-UHD Size; 829471-JN-IW Scorewas developed and its performance characteristics determinedby [employer]. It has not been cleared or approved by the Foodand Drug Administration.PATIENT WAS FASTINGPERFORMED BY: [facility] [address] [id number] BY: [employer] Nysqqd0206 [place] MergeLocalUNC Health [facility] [id number] RBC (Bld) [#/Vol] 5.52 10*6/uL Normal 4.14-5.80 [facility] ehensive Internal Medicine; [facility] Internal Medicine Work Phone: Comment on above: Test(s) 113719-VMM-O ; 400376-HHY-N; 784019-IIT-L; 662097-Zpmfvzptagagb; 025131-Sgslpuvonko, Total; 006271-EDB-E (Total);325339-Xpjrv LDL-P; 852024-HXX Size; 141069-RA-CP Scorewas developed and its performance characteristics determinedby [employer]. It has not been cleared or approved by the Foodand Drug Administration.PATIENT WAS FASTINGPERFORMED BY: [facility] [address] [id number] BY: [employer]6370 [place] MergeLocalUNC Health [facility] [id number] WBC (Bld) [#/Vol] 7.1 {x10E3/uL} Normal 3.4-10.8 [facility] Internal Medicine Work Phone: Comment on above: Test(s) 459752-WLU-A ; 115834-TOB-D; 792694-RAW-V; 800760-Mepbcshohlxgn; 963527-Ibjildrorlv, Total; 788390-GIV-I (Total);766552-Ibqho LDL-P; 644150-VZJ Size; 933691-BQ-HJ Scorewas developed and its performance characteristics determinedby [employer]. It has not been cleared or approved by the Foodand Drug Administration.PATIENT WAS FASTINGPERFORMED BY: [facility] [address] [id number] BY: [employer]6370 [facility] [id number] WBC (Bld) [#/Vol] 7.1 10*3/uL Normal 3.4-10.8 [facility] Internal Medicine; [facility] Work Phone: Comment on above: Test(s) 127949-NWR-R ; 992228-BTP-F; 673124-ZEO-W; 486983-Zrphwfqnyuolu; 529927-Fpnjzrbmlxc, Total; 567815-EED-G (Total);313381-Akfjn LDL-P; 281286-KSE Size; 095628-CI-VU Scorewas developed and its performance characteristics determinedby [employer]. It has not been cleared or approved by the Foodand Drug Administration.PATIENT WAS FASTINGPERFORMED BY: SpaceList[address] [id number] BY: [employer]6370 [employer]3 TVIreland Army Community Hospital [id number] METABOLIC PANEL, COMPREHENSI VE (44750)Ordered By: Calliope Player on 04-13-2019 Albumin [Mass/Vol] 4.4 g/dL Normal 3.5-5.5 [facility] Internal Medicine Work Phone: Comment on above: Test(s) 629692-PBI-G ; 944694-PBB-D; 964492-PEV-W; 398048-Fgxdyfydlugpg; 204152-Yetwwixurtd, Total; 570955-ZKO-V (Total);653375-Hdlgc LDL-P; 335146-PCB Size; 634781-MS-OF Scorewas developed and its performance characteristics determinedby [employer]. It has not been cleared or approved by the Foodand Drug Administration.PATIENT WAS FASTINGPERFORMED BY: [facility] [address] [id number] BY: SMGBB70 [employer] TVIreland Army Community Hospital [id number] Albumin/Globulin [Mass ratio] 1.6 {ratio} Normal 1.2-2.2 [facility] Internal Medicine Work Phone: Comment on above: Test(s) 378471-ZXT-I ; 486019-VMP-V; 554548-MWB-F; 364467-Mrxrdzqevhmij; 104863-Mocowbraays, Total; 357932-PCA-G (Total);838433-Zkpbx LDL-P; 160832-BTQ Size; 033247-JZ-BT Scorewas developed and its performance characteristics determinedby [employer]. It has not been cleared or approved by the Foodand Drug Administration.PATIENT WAS FASTINGPERFORMED BY: [employer] [id number] BY: [employer] Imaging CorporationMorgan V[place] 9235970 [facility] [id number] ALP [Catalytic activity/Vol] 83 [iU]/L Normal 39-117 [facility] Internal Medicine Work Phone: Comment on above: Test(s) 511818-OTX-Z ; 979983-BDB-I; 326222-QFP-Z; 278325-Yxlclzqpupzab; 406673-Qmrkxtkwysk, Total; 979659-QBA-R (Total);446978-Kpcgg LDL-P; 636939-VZO Size; 188287-BJ-EB Scorewas developed and its performance characteristics determinedby [employer]. It has not been cleared or approved by the Foodand Drug Administration.PATIENT WAS FASTINGPERFORMED BY: [employer] [id number] BY: [employer] CorporationRobert Wood Johnson University HospitalDnduyc1670 [facility] [id number] ALP [Catalytic activity/Vol] 83 U/L Normal 39-117 [facility]; [facility] Work Phone: Comment on above: Test(s) 664848-UXO-E ; 016837-PMK-C; 543506-RRD-R; 888918-Uwwiibsfigpgj; 521266-Nnpiuqfeqtn, Total; 164267-GKO-R (Total);032138-Qczjp LDL-P; 507068-MST Size; 114983-YI-WN Scorewas developed and its performance characteristics determinedby [employer]. It has not been cleared or approved by the Foodand Drug Administration.PATIENT WAS FASTINGPERFORMED BY: [employer] [id number] BY: [employer]6370 [place] MergeLocalUNC Health [facility] [id number] ALT [Catalytic activity/Vol] 20 [iU]/L Normal 0-44 [facility] Work Phone: Comment on above: Test(s) 026980-RDX-T ; 805594-TWR-Y; 900724-DPB-E; 099507-Yndjijlilzemv; 846112-Vqukuefdlxo, Total; 544819-ZSG-Q (Total);454969-Dwuwf LDL-P; 203839-EQX Size; 535362-WB-MV Scorewas developed and its performance characteristics determinedby [employer]. It has not been cleared or approved by the Foodand Drug Administration.PATIENT WAS FASTINGPERFORMED BY: [facility] [address] [id number] BY: [employer]6370 [address] NameMediaGood Hope Hospital [id number] ALT [Catalytic activity/Vol] 20 U/L Normal 0-44 [facility]; [facility] Work Phone: Comment on above: Test(s) 971576-JQR-W ; 487808-RXO-U; 245046-NFY-G; 983820-Smqvioggzvhjn; 102571-Nmmrgtstaep, Total; 753099-PAT-Y (Total);689945-Yzqxq LDL-P; 257965-GWS Size; 359983-VL-OC Scorewas developed and its performance characteristics determinedby [employer]. It has not been cleared or approved by the Foodand Drug Administration.PATIENT WAS FASTINGPERFORMED BY: [facility] [address] [id number] BY: [employer]ovolin6370 [facility] [id number] AST [Catalytic activity/Vol] 21 [iU]/L Normal 0-40 [facility] Work Phone: Comment on above: Test(s) 921150-OOX-F ; 367304-APF-G; 222144-KQD-M; 265364-Uqmhaxohjceek; 175371-Wqzzarpgvan, Total; 019551-MKV-G (Total);126575-Ltnzh LDL-P; 491695-TCO Size; 251505-QX-PX Scorewas developed and its performance characteristics determinedby [employer]. It has not been cleared or approved by the Foodand Drug Administration.PATIENT WAS FASTINGPERFORMED BY: [employer] [id number] BY: [employer] Fbxmce7736 [place] MergeLocalUNC Health [facility] [id number] AST [Catalytic activity/Vol] 21 U/L Normal 0-40 [facility]; [facility] Work Phone: Comment on above: Test(s) 737320-CZY-U ; 841386-IXB-Q; 859872-GUP-R; 278004-Oyposcajabwjk; 266358-Tnyuhcosbiz, Total; 309532-CCS-N (Total);819225-Bkxmw LDL-P; 885951-HYD Size; 047706-NZ-FE Scorewas developed and its performance characteristics determinedby [employer]. It has not been cleared or approved by the Foodand Drug Administration.PATIENT WAS FASTINGPERFORMED BY: [facility] [address] [id number] BY: [employer] Bxnsmd1960 [address] MergeLocalUNC Health [facility] [id number] Bilirubin [Mass/Vol] 0.5 mg/dL Normal 0.0-1.2 [facility] Internal Medicine Work Phone: Comment on above: Test(s) 528778-DHM-K ; 309579-DFU-S; 700436-QBI-W; 018307-Gshrxaqbciumw; 899334-Tdjkvqodqhq, Total; 501691-MBC-B (Total);432278-Uzmnl LDL-P; 284914-IZP Size; 723886-OL-KC Scorewas developed and its performance characteristics determinedby [employer]. It has not been cleared or approved by the Foodand Drug Administration.PATIENT WAS FASTINGPERFORMED BY: [employer] [id number] BY: [employer] CorporationRobert Wood Johnson University HospitalBzjdlw7331 [facility] [id number] Calcium [Mass/Vol] 9.2 mg/dL Normal 8.7-10.2 [facility] Internal Medicine Work Phone: Comment on above: Test(s) 423426-RMT-B ; 008998-RHO-Z; 327099-ULV-D; 624589-Vnemdrfxdbxvq; 700857-Tcifppdwqel, Total; 433868-AKN-R (Total);220982-Yghwf LDL-P; 620921-UQD Size; 521202-UW-JC Scorewas developed and its performance characteristics determinedby [employer]. It has not been cleared or approved by the Foodand Drug Administration.PATIENT WAS FASTINGPERFORMED BY: [employer] [place] [address] [id number] BY: SMGBB70 G-[facility] Research & CreationGood Hope Hospital [id number] Chloride [Moles/Vol] 104 mmol/L Normal 96-106 [facility] Internal Medicine Work Phone: Comment on above: Test(s) 289559-RLT-Y ; 957761-TNL-U; 262354-YUB-X; 749285-Lekojcsrwopqv; 047672-Cdyidififsn, Total; 540005-GDX-B (Total);602145-Zdsjc LDL-P; 764638-AQG Size; 706938-JM-RO Scorewas developed and its performance characteristics determinedby [employer]. It has not been cleared or approved by the Foodand Drug Administration.PATIENT WAS FASTINGPERFORMED BY: SpaceList[address] [id number] BY: [employer]6370 G-Innov[facility] Research & CreationGood Hope Hospital [id number] CO2 [Moles/Vol] 21 mmol/L Normal 20-29 [facility] Internal Medicine Work Phone: Comment on above: Test(s) 576340-OBD-L ; 300547-LQZ-W; 381564-JLI-F; 554421-Betuklwiuqnyk; 039105-Jpkfpjxsghh, Total; 499920-CPQ-C (Total);576248-Mtosz LDL-P; 661938-BBK Size; 259343-XD-SC Scorewas developed and its performance characteristics determinedby [employer]. It has not been cleared or approved by the Foodand Drug Administration.PATIENT WAS FASTINGPERFORMED BY: [facility] [address] [id number] BY: [employer]6370 [facility] [id number] Creatinine [Mass/Vol] 0.69 mg/dL Abnormal 0.76-1.27 [facility] Internal Medicine Work Phone: Comment on above: Test(s) 172947-DXR-N ; 262011-DKF-B; 594992-UUV-W; 178729-Zeesouyrkzpka; 972457-Qdevjpvdfps, Total; 873180-OKV-L (Total);191088-Utjqv LDL-P; 784102-VLL Size; 920446-ML-OE Scorewas developed and its performance characteristics determinedby [employer]. It has not been cleared or approved by the Foodand Drug Administration.PATIENT WAS FASTINGPERFORMED BY: [facility] [address] [id number] BY: SMGBB70 [facility] [id number] GFR/1.73 sq M predicted among blacks CKD-EPI (S/P/Bld) [Vol rate/Area] 121 mL/min/1.73 Normal [facility] Internal Medicine Work Phone: Comment on above: Test(s) 511291-OQG-C ; 822197-HFP-F; 852537-SLG-A; 747337-Dgbwxxstlxpvw; 459521-Nerhcbpeowf, Total; 935812-XQK-N (Total);524566-Ooyef LDL-P; 088150-DHO Size; 440037-DR-UU Scorewas developed and its performance characteristics determinedby [employer]. It has not been cleared or approved by the Foodand Drug Administration.PATIENT WAS FASTINGPERFORMED BY: [facility] 70 [address] [id number] BY: SMGBB70 [facility] [id number] GFR/1.73 sq M predicted among non-blacks CKD-EPI (S/P/Bld) [Vol rate/Area] 105 mL/min/1.73 Normal [facility] Work Phone: Comment on above: Test(s) 404967-TDU-J ; 012852-IKL-B; 476081-FME-A; 141265-Cgfanpfyithvs; 302009-Nlyqmnfvebu, Total; 604007-MJO-R (Total);110452-Aitou LDL-P; 917611-KSD Size; 617457-OF-YW Scorewas developed and its performance characteristics determinedby [employer]. It has not been cleared or approved by the Foodand Drug Administration.PATIENT WAS FASTINGPERFORMED BY: SpaceList[address] [id number] BY: SMGBB70 [facility] NameMedia[facility] [id number] Globulin (S) [Mass/Vol] 2.7 g/dL Normal 1.5-4.5 [facility] Internal Medicine Work Phone: Comment on above: Test(s) 179652-XGH-Y ; 597608-MBH-K; 175896-VEG-S; 492814-Rkcizxdgvrkbg; 149072-Ccnaowtnvsb, Total; 768435-LIQ-Q (Total);871408-Cbnta LDL-P; 132858-YIR Size; 815947-LH-KQ Scorewas developed and its performance characteristics determinedby Stam[employer]. It has not been cleared or approved by the Foodand Drug Administration.PATIENT WAS FASTINGPERFORMED BY: SpaceList[address] [id number] BY: OPEN [employer]6370 [facility] Science CenterRTN Stealth SoftwareGood Hope Hospital [id number] Glucose [Mass/Vol] 89 mg/dL Normal 65-99 [facility] Internal Medicine Work Phone: Comment on above: Test(s) 068546-OBF-E ; 692753-CDO-I; 740188-ZYD-G; 290996-Tdxgdlpnaxabp; 765717-Exmgzudxpya, Total; 205612-SOQ-Y (Total);434385-Kjpin LDL-P; 113094-IOB Size; 592313-UN-PT Scorewas developed and its performance characteristics determinedby [employer]. It has not been cleared or approved by the Foodand Drug Administration.PATIENT WAS FASTINGPERFORMED BY: [facility] [address] [id number] BY: Qriket6370 [facility] [id number] Potassium [Moles/Vol] 4.4 mmol/L Normal 3.5-5.2 [facility] Internal Medicine Work Phone: Comment on above: Test(s) 824211-EQM-U ; 755820-SAY-F; 997664-WKE-N; 872716-Ibnegbsyhbthu; 870795-Kmrafwbywzb, Total; 874262-SKW-T (Total);229733-Rplfa LDL-P; 205204-YNX Size; 373230-SA-KV Scorewas developed and its performance characteristics determinedby [employer]. It has not been cleared or approved by the Foodand Drug Administration.PATIENT WAS FASTINGPERFORMED BY: [facility] [address] [id number] BY: [employer]6370 [facility] [id number] Protein [Mass/Vol] 7.1 g/dL Normal 6.0-8.5 [facility] Internal Medicine Work Phone: Comment on above: Test(s) 653431-WQF-B ; 908982-DUH-X; 307138-EFY-D; 947380-Vdsivfoldgslv; 145712-Qkxswceksff, Total; 223882-BEL-B (Total);082940-Pxrme LDL-P; 891381-IJD Size; 765676-PF-JV Scorewas developed and its performance characteristics determinedby [employer]am[employer]. It has not been cleared or approved by the Foodand Drug Administration.PATIENT WAS FASTINGPERFORMED BY: [facility] [address] [id number] BY: [employer]6370 [facility] [id number] Sodium [Moles/Vol] 143 mmol/L Normal 134-144 [facility] Internal Medicine Work Phone: Comment on above: Test(s) 927169-OLL-H ; 490318-ESN-R; 966071-UYD-R; 142162-Adiuzclrcsxyg; 690554-Ptyxtvqjxnn, Total; 166339-CTZ-A (Total);997053-Gfozy LDL-P; 935599-JDJ Size; 602663-XV-MM Scorewas developed and its performance characteristics determinedby [employer]. It has not been cleared or approved by the Foodand Drug Administration.PATIENT WAS FASTINGPERFORMED BY: SpaceList[address] [id number] BY: [employer]6370 [facility] [id number] Urea nitrogen [Mass/Vol] 13 mg/dL Normal 6-24 [facility] Internal Medicine Work Phone: Comment on above: Test(s) 793807-SVH-Y ; 784640-LVK-D; 532020-YCT-R; 050411-Vmmpziaumntpp; 357497-Xarangrtqvt, Total; 070313-ORE-Q (Total);121641-Gctuq LDL-P; 774464-UDO Size; 363966-FU-ZO Scorewas developed and its performance characteristics determinedby [employer]. It has not been cleared or approved by the Foodand Drug Administration.PATIENT WAS FASTINGPERFORMED BY: SpaceList[address] [id number] BY: [place] [employer] Eipork5900 [facility] [id number] Urea nitrogen/Creatinine [Mass ratio] 19 mg/mg Normal 9-20 [facility] Work Phone: Comment on above: Test(s) 529111-BKS-C ; 421331-TQS-M; 624800-YJP-Q; 166278-Mmckzskecokdk; 005798-Devrrmrihqz, Total; 855471-ZSB-C (Total);561568-Lbzwy LDL-P; 129527-MZB Size; 470090-FZ-GM Scorewas developed and its performance characteristics determinedby [employer]. It has not been cleared or approved by the Foodand Drug Administration.PATIENT WAS FASTINGPERFORMED BY: [facility] [address] [id number] BY: Pegasus Imaging CorporationRobert Wood Johnson University HospitalJwzivy9406 [facility] [id number] MICROALBUMINOrdered By: Syst em Horse Rancher on 04-13-2019 Albumin DL <= 20 mg/L (U) [Mass/Vol] 3.8 ug/mL Normal [facility] Work Phone: Comment on above: Test(s) 948372-HQF-I ; 045312-GDO-Y; 480225-VFH-V; 835972-Sqlhqtualonbv; 454641-Guiqutmltxq, Total; 400339-LZG-Z (Total);216516-Ohprh LDL-P; 993925-IDQ Size; 736353-CQ-MF Scorewas developed and its performance characteristics determinedby [employer]am[employer]. It has not been cleared or approved by the Foodand Drug Administration.PATIENT WAS FASTINGPERFORMED BY: [facility] [address] [id number] BY: [employer] Cxinak0454 [facility] [id number] Albumin/Creatinine (U) [Mass ratio] 3.5 {mg/g_creat} Normal 0.0-30.0 [facility] Work Phone: Comment on above: Normal: 0.0 - 30.0 A lbuminuria: 31.0 - 300.0 Clinical albuminuria: >300.0 Test(s) 950684-JVE-H ; 632261-XQP-B; 759648-CAQ-K; 002953-Meuouksjfqyba; 225080-Urguyfjelry, Total; 416617-YMV-A (Total);269344-Bthyu LDL-P; 984572-XOS Size; 047837-RO-NI Scorewas developed and its performance characteristics determinedby [employer]. It has not been cleared or approved by the Foodand Drug Administration.PATIENT WAS FASTINGPERFORMED BY: [facility] Ekcldwdmvt2987 [facility][1] [id number] BY: [employer]6370 [facility] [id number] Creatinine (U) [Mass/Vol] 108.8 mg/dL Normal [facility] Work Phone: Comment on above: Test(s) 339841-FRH-T ; 585256-OYW-U; 475878-IGA-U; 404727-Diwdvxkypycnq; 693091-Ivblswfajse, Total; 180464-NYT-J (Total);543343-Qvjsn LDL-P; 005404-XUM Size; 637587-YP-DK Scorewas developed and its performance characteristics determinedby [employer]. It has not been cleared or approved by the Foodand Drug Administration.PATIENT WAS FASTINGPERFORMED BY: SpaceList[address] [id number] BY: [employer]6370 [facility] [id number] NMR Profile (13825)Ordered B y: Calliope Player on 04-13-2019 Cholesterol [Mass/Vol] 162 mg/dL Normal 100-199 [facility] Internal Medicine Work Phone: Comment on above: Test(s) 710425-ZCR-P ; 863840-DZW-U; 336727-XSM-H; 006969-Pwixyiblixlcq; 383528-Ikwoiyrifpn, Total; 105666-GOH-K (Total);312686-Swtdh LDL-P; 910008-IPI Size; 943178-YA-OI Scorewas developed and its performance characteristics determinedby [employer]. It has not been cleared or approved by the Foodand Drug Administration.PATIENT WAS FASTINGPERFORMED BY: [facility] [address] [id number] BY: [employer]6370 [facility] [id number] Lipoprotein.alpha [Moles/Vol] 35.8 umol/L Normal [facility] Internal Medicine Work Phone: Comment on above: Test(s) 976475-TTN-V ; 248185-DEC-O; 876095-MLI-D; 165589-Vkblmrlytyaiv; 569697-Jhfyxcipfyt, Total; 579563-DHM-W (Total);800821-Cbfen LDL-P; 002566-YQW Size; 070671-KE-RM Scorewas developed and its performance characteristics determinedby [employer]. It has not been cleared or approved by the Foodand Drug Administration.PATIENT WAS FASTINGPERFORMED BY: BN [facility] Yozgedwgzy6048 [facility][1] [id number] BY: CB [facility] Pqqkpi7681 [facility] [id number] Lipoprotein.beta.subpar ticle [Entitic length] 20.4 nm Abnormal Comprehen rosadebi Internal Medicine Work Phone: Comment on above: INTERPRETATIVE INFORMATION PARTICLE CONCENTRATION AND SIZE <--Lower CVD Risk Higher CVD Risk--> LDL AND HDL PARTICLES Percentile in Reference Population HDL-P (total) High 75th 50th 25th Low >34.9 34.9 30.5 26.7 <26.7 . Small LDL-P Low 25th 50th 75th High <117 117 527 839 >839 . LDL Size <-Large (Pattern A)-> <-Small (Pattern B)-> 23.0 20.6 20.5 19.0 Smal l LDL-P and LDL Size are associated with CVD risk, but not afterLDL-P is taken into account. Test(s) 481407-KWR-S ; 777404-RUT-Z; 668518-IRR-B; 793537-Yomsmdowplgga; 075666-Anlkpyjzfhi, Total; 612720-PLA-G (Total);486188-Wsnsr LDL-P; 694201-QNI Size; 349489-RL-ED Scorewas developed and its performance characteristics determinedby Stam[employer]. It has not been cleared or approved by the Foodand Drug Administration.PATIENT WAS FASTINGPERFORMED BY: [employer] [id number] BY: Peg[employer] Imaging CorporationRobert Wood Johnson University HospitalWdmbka6920 [facility] [id number] Lipoprotein.beta.subpar ticle [Moles/Vol] 823 nmol/L Normal [facility] Work Phone: Comment on above: Low < 1000 Moderate 1000 - 1299 Borderline-High 1300 - 1599 High 1600 - 2000 Very High > 2000 Test(s) 529725-CDE-M ; 628124-UKG-F; 433862-KAE-I; 209994-Lsslfjtdtjmsc; 391301-Mietznqetbq, Total; 127610-FTS-J (Total);531848-Tolrm LDL-P; 286137-UAW Size; 417126-ER-JP Scorewas developed and its performance characteristics determinedby [employer]am[employer]. It has not been cleared or approved by the Foodand Drug Administration.PATIENT WAS FASTINGPERFORMED BY: [facility] [address] [id number] BY: Peg[employer] Imaging CorporationRobert Wood Johnson University HospitalPswzpa1456 [facility] [id number] Lipoprotein.beta.subpar ticle.small [Moles/Vol] 560 nmol/L Abnormal Comprehe nsive Internal Medicine Work Phone: Comment on above: Test(s) 713101-TNX-F ; 273364-SZG-D; 805327-CIY-X; 712146-Wzqwkmlhmhxqk; 672739-Vcccnmdqdzj, Total; 169676-JXY-N (Total);169119-Ytufh LDL-P; 717857-ONM Size; 505987-LP-ZB Scorewas developed and its performance characteristics determinedby [employer]. It has not been cleared or approved by the Foodand Drug Administration.PATIENT WAS FASTINGPERFORMED BY: [facility] [address] [id number] BY: [employer]6370 [facility] CreationGood [facility] Hospital [id number] Triglyceride [Mass/Vol] 226 mg/dL Abnormal 0-149 [facility] centerensive Internal Medicine Work Phone: Comment on above: Test(s) 065103-OHP-K ; 473978-PEX-F; 662178-DGU-E; 757029-Auwmhrqhbbuwj; 923086-Qciacirxzyl, Total; 252804-RFR-Q (Total);209434-Upuai LDL-P; 731266-SHG Size; 872239-KE-BN Scorewas developed and its performance characteristics determinedby Stam[employer]. It has not been cleared or approved by the Foodand Drug Administration.PATIENT WAS FASTINGPERFORMED BY: [facility] [address] [id number] BY: [employer]6370 [facility] CreationGood [facility] Hospital [id number] NMR Profile (67313) 64 mg/dL Normal 0-99 [facility] Internal Medicine Work Phone: Comment on above: . Optimal < 100 Abov e optimal 100 - 129 Borderline 130 - 159 High 160 - 189 Very high > 189 .LDL-C is inaccurate if patient is non-fasting. Test(s) 951606-NDB-B ; 757449-VQG-D; 420534-UTA-D; 496323-Dkjupihnyhaxw; 649192-Qelafkdplxi, Total; 894704-WMF-K (Total);023642-Bkgnk LDL-P; 833005-ZAI Size; 024821-WN-FK Scorewas developed and its performance characteristics determinedby Stam[employer]. It has not been cleared or approved by the Foodand Drug Administration.PATIENT WAS FASTINGPERFORMED BY: [facility] [address] [id number] BY: [employer]6370 [facility] [id number] NMR Profile (43308) 53 mg/dL Normal [facility] Internal Medicine Work Phone: Comment on above: Test(s) 166245-DRG-R ; 454758-HDE-V; 888783-PHW-R; 755349-Pazhkvsxqbypf; 084407-Aqyauclrstr, Total; 668231-RSD-R (Total);555151-Xczto LDL-P; 042051-PEO Size; 226318-IA-BT Scorewas developed and its performance characteristics determinedby [employer]. It has not been cleared or approved by the Foodand Drug Administration.PATIENT WAS FASTINGPERFORMED BY: [employer] Tkcokztsdp2527 [facility][1] [id number] BY: [employer] Ulasaj8729 [facility] [id number] NMR Profile (74672) 226 mg/dL Abnormal 0-149 Compr ensive Internal Medicine; [facility] Work Phone: NMR Profile (28857) 162 mg/dL Normal 100-199 Compr ensive Internal Medicine; [facility] Work Phone: PSA (PROSTATE SPECIFIC ANTIG EN) (V76.44)Ordered By: Calliope Player on 04-13-2019 Prostate specific Ag [Mass/Vol] 0.3 ng/mL Normal 0.0-4.0 [facility] Work Phone: Comment on above: Deanna ECLIA methodol ogy. .According to the [place] [employer], Serum PSA shoulddecrease and remain at undetectable levels after radicalprostatectomy. The AUA defines biochemical recurrence as an initialPSA value 0.2 ng/mL or greater followed by a subsequent confirmatoryPSA value 0.2 ng/mL or greater.Values obtained with different assay methods or kits cannot be usedinterchangeably. Results cannot be interpreted as absolute evidenceof the presence or absence of malignant disease. Test(s) 697794-KOY-S ; 678195-CJB-X; 310818-IYP-R; 810461-Cwoybyixnptvg; 560446-Wtlifonrotp, Total; 506516-FYW-J (Total);973543-Niosz LDL-P; 139176-AJA Size; 800930-UP-QD Scorewas developed and its performance characteristics determinedby Stam[employer]. It has not been cleared or approved by the Foodand Drug Administration.PATIENT WAS FASTINGPERFORMED BY: [employer] [address] [id number] BY: [employer]6370 [facility] [id number] URINALYSIS, W/ MICRO (01024) Ordered By: Calliope Player on 04-13-2019 Appearance (U) Clear Normal Comprehens arianna Internal Medicine Work Phone: Comment on above: Test(s) 098741-WVO-U ; 736170-PAP-N; 732245-PPY-I; 312303-Kihckoszwutyc; 825779-Bfssghwpouk, Total; 553564-BRJ-F (Total);099941-Mfknk LDL-P; 264266-WMN Size; 870433-MI-MP Scorewas developed and its performance characteristics determinedby [employer]. It has not been cleared or approved by the Foodand Drug Administration.PATIENT WAS FASTINGPERFORMED BY: [facility] [address] [id number] BY: SMGBB70 Haney NameMediaGood Hope Hospital [id number] Bilirubin Ql (U) Negative Normal Comprehe nsive Internal Medicine Work Phone: Comment on above: Test(s) 562674-VCL-X ; 549982-HIW-J; 850957-FTO-I; 287762-Rsarfgcbdruky; 217115-Aqjheidqbfs, Total; 307557-MVF-N (Total);214929-Yozgs LDL-P; 856298-SHX Size; 768254-TG-QD Scorewas developed and its performance characteristics determinedby [employer]. It has not been cleared or approved by the Foodand Drug Administration.PATIENT WAS FASTINGPERFORMED BY: [facility] [address] [id number] BY: [employer]6370 [facility] [id number] Bilirubin Ql (U) Negative Normal Comprehe nsive Internal Medicine; [facility] Work Phone: Comment on above: Test(s) 544215-CZK-Q ; 850792-MQK-E; 485790-YDS-C; 827483-Txxmxugrejqnm; 268986-Lrtonxquzdl, Total; 718723-ODR-Y (Total);807101-Rrojh LDL-P; 383210-BNZ Size; 895724-QP-MS Scorewas developed and its performance characteristics determinedby [employer]. It has not been cleared or approved by the Foodand Drug Administration.PATIENT WAS FASTINGPERFORMED BY: [employer] [id number] BY: [employer] Woppjc9802 [facility] [id number] Color (U) Yellow Normal [facility] Work Phone: Comment on above: Test(s) 619908-IKE-Y ; 285995-OYB-B; 307467-DKV-N; 487713-Vpjmicfhxivim; 171556-Wkkcohlgeqv, Total; 210057-YDX-I (Total);902562-Jzmys LDL-P; 470245-IXL Size; 342068-CN-TE Scorewas developed and its performance characteristics determinedby [employer]. It has not been cleared or approved by the Foodand Drug Administration.PATIENT WAS FASTINGPERFORMED BY: [facility] [address] [id number] BY: SMGBB70 [facility] [id number] Glucose Ql (U) Negative Normal Comprehens arianna Internal Medicine Work Phone: Comment on above: Test(s) 707280-IWE-Q ; 127916-ZEB-M; 556350-FNQ-D; 892768-Zkpjihdglyual; 047047-Mrxwbpoulbk, Total; 372758-ACI-K (Total);303389-Agunz LDL-P; 894229-SSM Size; 324026-AA-FR Scorewas developed and its performance characteristics determinedby [employer]. It has not been cleared or approved by the Foodand Drug Administration.PATIENT WAS FASTINGPERFORMED BY: [facility] [address] [id number] BY: Qriket6370 [facility] [id number] Glucose Ql (U) Negative Normal Comprehens arianna Internal Medicine; [facility] Work Phone: Comment on above: Test(s) 423530-EYQ-F ; 979727-HPE-D; 938121-KNU-M; 319900-Gdnspnxtpulrz; 066235-Ytundyuhlzs, Total; 620159-KRS-Z (Total);794694-Vlnor LDL-P; 961335-KEZ Size; 051159-AD-PZ Scorewas developed and its performance characteristics determinedby [employer]. It has not been cleared or approved by the Foodand Drug Administration.PATIENT WAS FASTINGPERFORMED BY: [facility] [address] [id number] BY: SMGBB70 [facility] [id number] Hemoglobin Ql (U) Negative Normal Compreh ensive Internal Medicine Work Phone: Comment on above: Test(s) 745811-SQG-Q ; 137380-MQW-E; 643485-XUC-P; 010816-Mxumamyanwlim; 558764-Udbukvhhzjr, Total; 883803-DLD-F (Total);691640-Hltjt LDL-P; 007585-AKT Size; 892794-PH-UD Scorewas developed and its performance characteristics determinedby [employer]. It has not been cleared or approved by the Foodand Drug Administration.PATIENT WAS FASTINGPERFORMED BY: [facility] [address] [id number] BY: [place] [employer] Jdzmon6586 [facility] [id number] Hemoglobin Ql (U) Negative Normal Compreh ensive Internal Medicine; [facility] Work Phone: Comment on above: Test(s) 112626-NXC-N ; 115094-BNV-T; 541995-VTM-B; 088060-Vwvznslmvjtor; 296977-Ufvicqnfunq, Total; 394175-XCI-U (Total);031558-Kttfd LDL-P; 399409-TKH Size; 951380-UF-ZX Scorewas developed and its performance characteristics determinedby [employer]. It has not been cleared or approved by the Foodand Drug Administration.PATIENT WAS FASTINGPERFORMED BY: ShopEat[address] [id number] BY: [employer] Kzwloo7683 [facility] [id number] Ketones Ql (U) Negative Normal Comprehens arianna Internal Medicine Work Phone: Comment on above: Test(s) 243962-GEJ-A ; 935696-MSR-M; 635984-YQU-L; 642920-Ljepawnaywafq; 322722-Pkkzqjonjxg, Total; 426622-FBP-Z (Total);974024-Nnfyg LDL-P; 110327-PYH Size; 262511-NN-UA Scorewas developed and its performance characteristics determinedby [employer]. It has not been cleared or approved by the Foodand Drug Administration.PATIENT WAS FASTINGPERFORMED BY: [facility] [address] [id number] BY: Noovolin6370 [facility] [id number] Ketones Ql (U) Negative Normal Comprehens arianna Internal Medicine; [facility] Work Phone: Comment on above: Test(s) 285622-HBY-H ; 332567-NXL-J; 457356-MYV-X; 813755-Bmgxocoamvrhj; 180515-Ncxpjcuoxhj, Total; 980292-VEU-M (Total);354831-Iysnr LDL-P; 104680-KPR Size; 164755-KW-EG Scorewas developed and its performance characteristics determinedby [employer]. It has not been cleared or approved by the Foodand Drug Administration.PATIENT WAS FASTINGPERFORMED BY: [facility] [address] [id number] BY: [employer] Wqtoyl0273 [facility] [id number] Leukocyte esterase Test strip Ql (U) Negative Normal [facility] Work Phone: Comment on above: Test(s) 152431-IYY-Y ; 190558-KIZ-S; 524439-XUG-G; 916749-Omijxbcfuncak; 405505-Puelbjqizud, Total; 623288-QPZ-T (Total);810546-Gdkfk LDL-P; 659233-ZXT Size; 086727-MB-EN Scorewas developed and its performance characteristics determinedby [employer]. It has not been cleared or approved by the Foodand Drug Administration.PATIENT WAS FASTINGPERFORMED BY: [facility] [address] [id number] BY: SMGBB70 adQUNC Health Chatham [id number] Leukocyte esterase Test strip Ql (U) Negative Normal [facility]; [facility] Work Phone: Comment on above: Test(s) 181529-SRK-L ; 753749-OGN-N; 585343-QXK-G; 683656-Ueteiqrgybvau; 167132-Tbotgccqhql, Total; 569051-WDL-Z (Total);164093-Tssjb LDL-P; 257377-IQI Size; 789238-QN-QE Scorewas developed and its performance characteristics determinedby [employer]. It has not been cleared or approved by the Foodand Drug Administration.PATIENT WAS FASTINGPERFORMED BY: [facility] [address] [id number] BY: [employer] Network6370 HaneySSM Saint Mary's Health CenterRTN Stealth SoftwareGood Hope Hospital [id number] Microscopic observation LM Nom (Urine sed) See below: Normal [facility] Work Phone: Comment on above: Microscopic was lynnette cated and was performed. Test(s) 965475-CDM-Y ; 982718-ILM-Y; 989240-BUF-Z; 252652-Sqbjzvnpygenl; 518136-Flvismuqhrm, Total; 703475-WDL-I (Total);280402-Ejous LDL-P; 682522-OPV Size; 749406-CQ-RD Scorewas developed and its performance characteristics determinedby [employer]. It has not been cleared or approved by the Foodand Drug Administration.PATIENT WAS FASTINGPERFORMED BY: [facility] [address] [id number] BY: SMGBB70 [facility] [id number] Microscopic observation LM Nom (Urine sed) MICRON Normal [facility] Work Phone: Comment on above: Microscopic follows if indicated. Test(s) 081698-WIO-Z ; 363526-TYS-N; 193138-GIR-R; 031099-Xqapfhawotdma; 400721-Sjfekpqgilo, Total; 887378-FFA-L (Total);100599-Efxoj LDL-P; 762285-ACR Size; 000488-MA-SW Scorewas developed and its performance characteristics determinedby [employer]. It has not been cleared or approved by the Foodand Drug Administration.PATIENT WAS FASTINGPERFORMED BY: SpaceList[address] [id number] BY: [employer]6370 [facility] [id number] Nitrite Ql (U) Negative Normal Comprehens arianna Internal Medicine Work Phone: Comment on above: Test(s) 094415-XOO-A ; 000843-VYB-L; 140639-WZY-M; 710416-Bukrlltibjvoy; 260170-Dzqwzndkxmz, Total; 044110-FEW-N (Total);222131-Lqrdr LDL-P; 874950-KKO Size; 813217-RJ-KR Scorewas developed and its performance characteristics determinedby [employer]. It has not been cleared or approved by the Foodand Drug Administration.PATIENT WAS FASTINGPERFORMED BY: [facility] [address] [id number] BY: [employer] Sgizvl5234 [facility] [id number] Nitrite Ql (U) Negative Normal Comprehens arianna Internal [facility]; [facility] Work Phone: Comment on above: Test(s) 515943-WQC-E ; 888366-GWA-D; 883482-BBA-K; 060575-Aslofdcaxtnbk; 555423-Zhlusftlldj, Total; 683534-DBJ-W (Total);690147-Mbzac LDL-P; 479952-SAY Size; 849498-RW-UD Scorewas developed and its performance characteristics determinedby [employer]. It has not been cleared or approved by the Foodand Drug Administration.PATIENT WAS FASTINGPERFORMED BY: ShopEat[address] [id number] BY: Peg[employer] Imaging CorporationRobert Wood Johnson University HospitalEdyvrh9024 [facility] [id number] pH (U) 7.0 [pH] Normal 5.0-7.5 [facility] Work Phone: Comment on above: Test(s) 516813-VZB-T ; 195597-SWS-W; 677589-SJV-O; 097491-Vpldxbobeizti; 000947-Bdatqsdzvcw, Total; 191541-ADV-D (Total);642325-Xzwto LDL-P; 370230-KHE Size; 246645-RG-PQ Scorewas developed and its performance characteristics determinedby [employer]. It has not been cleared or approved by the Foodand Drug Administration.PATIENT WAS FASTINGPERFORMED BY: [facility] [address] [id number] BY: [employer]6370 [facility] [id number] Protein Ql (U) Negative Normal Comprehens arianna Internal Medicine Work Phone: Comment on above: Test(s) 713347-BNH-A ; 182697-ETA-I; 259445-LGY-W; 628729-Tscgdwnmsnxjd; 962414-Frgfuvmkmwz, Total; 640106-EAP-Y (Total);025132-Vhfei LDL-P; 329088-FEZ Size; 539853-BK-EX Scorewas developed and its performance characteristics determinedby [employer]. It has not been cleared or approved by the Foodand Drug Administration.PATIENT WAS FASTINGPERFORMED BY: ShopEat[address] [id number] BY: Peg[employer] Imaging CorporationRobert Wood Johnson University HospitalUpmqbj5024 [facility] [id number] Protein Ql (U) Negative Normal Comprehens arianna [facility]; [facility] Work Phone: Comment on above: Test(s) 552819-BMV-H ; 744359-LMK-X; 672292-JKT-M; 557551-Psutehdlbogmj; 619632-Ynjzcimlgot, Total; 279328-ODZ-O (Total);779243-Kdhvj LDL-P; 711225-QWJ Size; 317240-XG-XX Scorewas developed and its performance characteristics determinedby [employer]. It has not been cleared or approved by the Foodand Drug Administration.PATIENT WAS FASTINGPERFORMED BY: [facility] [address] [id number] BY: SMGBB[address] MergeLocalUNC Health Chatham [id number] Specific gravity (U) [Rel density] 1.018 1 Normal 1.005-1.03 0 [facility] Work Phone: Comment on above: Test(s) 269041-EQT-I ; 355292-TDD-W; 429375-CXV-B; 412286-Otbonkxwsdcqn; 668298-Ggcqdvoqils, Total; 584093-ABE-U (Total);336530-Iczue LDL-P; 791319-UXA Size; 592159-GV-LG Scorewas developed and its performance characteristics determinedby [employer]. It has not been cleared or approved by the Foodand Drug Administration.PATIENT WAS FASTINGPERFORMED BY: [facility] [address] [id number] BY: [employer]6370 [facility] [id number] Urobilinogen (U) [Mass/Vol] 0.2 mg/dL Normal 0.2-1.0 [facility]; [facility] Work Phone: Comment on above: Test(s) 106194-IPJ-O ; 004307-CPT-D; 885170-HKZ-A; 600002-Whbgcjvtupuji; 973699-Kpkjnilwwwy, Total; 276340-QEP-Z (Total);513473-Tngoc LDL-P; 354291-YKV Size; 285965-HQ-NC Scorewas developed and its performance characteristics determinedby [employer]. It has not been cleared or approved by the Foodand Drug Administration.PATIENT WAS FASTINGPERFORMED BY: Pegasus Imaging CorporationKaren [place] 020107 [facility][1] [id number] BY: Peg[employer] Imaging CorporationRobert Wood Johnson University HospitalVtoffx6942 [facility] [id number] Urobilinogen Test strip (U) [Mass/Vol] 0.2 mg/dL Normal 0.2-1.0 [facility] Work Phone: Comment on above: Test(s) 398154-TIK-Q ; 465028-EIJ-M; 150427-TER-S; 099552-Pawxnpwcefyef; 836949-Gslkryycfxs, Total; 638343-ZHX-N (Total);882830-Qpbkz LDL-P; 142962-DTQ Size; 270746-QX-OB Scorewas developed and its performance characteristics determinedby [employer]. It has not been cleared or approved by the Foodand Drug Administration.PATIENT WAS FASTINGPERFORMED BY: [employer] [address] [id number] BY: Pegasus Imaging CorporationRobert Wood Johnson University HospitalEqffyh4905 [facility] [id number] Sputum Culture (93473)Ordere d By: Calliope Player on 10-28-2018 Epithelial cells.squamous LM Ql (Sput) None seen Normal [facility] Work Phone: Comment on above: PATIENT NOT FASTINGP ERFORMED BY: [employer] Lzxguf1940 [facility] [id number] Information: SRC:SP Microscopic observation Gram stain Nom (Sput) GSACC Normal Comprehens arianna [facility] Work Phone: Comment on above: This specimen is of good quality and is acceptable for routinebacterial culture. PATIENT NOT FASTINGP ERFORMED BY: [employer] Bryflr8217 [facility] [id number] Information: SRC:SP Microscopic observation Gram stain Nom (Sput) PCF Normal Comprehens arianna [facility] Work Phone: Comment on above: Few gram positive co cciFew gram variable coccobacilli PATIENT NOT FASTINGP ERFORMED BY: TONYA [facility] Qsoioj3857 [facility] [id number] Information: SRC:SP WBC LM Ql (Sput) None seen Normal Comprehe nsive Internal Medicine Work Phone: Comment on above: PATIENT NOT FASTINGP ERFORMED BY: TONYA [facility] Axpbhm9442 [facility] [id number] Information: SRC:SP Basic Metabolic Profile (BMP )on 10-13-2018 Basic metabolic 2000 panel 8.8 mg/dL Normal 8.5-10.1 [facility] Work Phone: Comment on above: [facility] spital [address] [place], [place], [id number] Basic metabolic 2000 panel 17.8 {RATIO} Normal 10-20 [facility] Work Phone: Comment on above: [facility] [address] [place], [place], [id number] Basic metabolic 2000 panel 120 mL/min Normal [facility] Work Phone: Comment on above: GFR Calc [facility] [address]fmsulw[address] [place], [place], [address] Basic metabolic 2000 panel 99 mL/min Normal [facility] Work Phone: Comment on above: Non- GFR Calc [facility] [address] [place], [place], [id number] Basic metabolic 2000 panel 0.84 mg/dL Normal 0.70-1.30 [facility] Work Phone: Comment on above: The validity of the calculated GFR AND GFRAA in patients over70 years has not been determined. Clinical correlation isessential. [facility] [address] [place], [place], [phone] Basic metabolic 2000 panel 15 mg/dL Normal 7-18 [facility] Work Phone: Comment on above: [facility] [address] [place], [place], [address] Basic metabolic 2000 panel 97 mg/dL Normal 74-106 [facility] Work Phone: Comment on above: Please note revised GLUCOSE reference range wiuwkahse09/02/2018. [facility] [address] [place], [address] Basic metabolic 2000 panel 25.0 mmol/L Normal 21.0-32.0 [facility] Work Phone: Comment on above: [facility] Zenlgxljiv[address] [place], [place], [address] Basic metabolic 2000 panel 108 mmol/L Abnormal 98-107 [facility] Work Phone: Comment on above: [facility] [address] [place], [place], [address] Basic metabolic 2000 panel 4 1 Abnormal 5-15 [facility] Work Phone: Comment on above: [facility] [address] [place], [place], [address] Basic metabolic 2000 panel 4.2 mmol/L Normal 3.5-5.1 [facility] Work Phone: Comment on above: [facility] [address] [place], [address] Basic metabolic 2000 panel 137 mmol/L Normal 136-145 [facility] Work Phone: Comment on above: [facility] [address] [place], [place], [address] CBC-Complete Blood Cnt No Di ffon 10-13-2018 Erythrocyte distribution width (RBC) [Ratio] 14.1 % Normal 11.6-14.6 [facility] Work Phone: Comment on above: [facility] [address] [place], [place], [address] Hematocrit (Bld) [Volume fraction] 41.5 % Normal 40-54 [facility] Work Phone: Comment on above: [facility] [address] [place], [address] Hemoglobin (Bld) [Mass/Vol] 13.6 g/dL Normal 13.0-16.5 [facility] Work Phone: Comment on above: [facility] [address] [place], [address] MCH (RBC) [Entitic mass] 26.8 pg Abnormal 27.0-32.0 [facility] Work Phone: Comment on above: [facility] [address] [place], [address](642 MCHC (RBC) [Mass/Vol] 32.8 {g/gl} Normal 32-36 [facility] Internal Medicine Work Phone: Comment on above: [facility] [address] [place], [address](829 MCV (RBC) [Entitic vol] 81.7 fL Normal 80-94 [facility]erensive Internal Medicine Work Phone: Comment on above: [facility] [address] [place], [address] Platelet mean volume (Bld) [Entitic vol] 10.1 fL Normal 6.2-12.0 Comprehens e Internal Medicine Work Phone: Comment on above: [facility] [address] [place], [address] Platelets (Bld) [#/Vol] 314 10*3/uL Normal 150-450 [facility] Work Phone: Comment on above: [facility] [address] [place], [address] RBC (Bld) [#/Vol] 5.08 {M/mm3} Normal 4.6-6.2 [facility] Internal Medicine Work Phone: Comment on above: [facility] [address]sb[address] [place], [place], [phone] WBC (Bld) [#/Vol] 6.4 10*3/uL Normal 4.4-11.0 [facility] Internal Medicine Work Phone: Comment on above: [facility] [address] [place], [address] CBC-Complete Blood Cnt No Diff 41.7 fL Normal 35.1-43.9 [facility] Work Phone: Comment on above: [facility] [address] [place], [address] IMMUNOHISTOCHEMISTRYon 09-30 IMMUNOHISTOCHEMISTRY See Note Normal Comp rehensive Internal Medicine Work Phone: Comment on above: Patient: MELIZA OVALLES : 1960 (58/M) Acct Num: [id number] Phys: Jay HICKS,Wolfgang Unit Num: [id number] Loc: EN Specimen: [id number] Received: 09/30/18 - 1224 Spec Type: IMMUNO TISSUES 1 TISSUES: A. Stomach, NOS SPECIMEN INFORMATION: Tissue Source: A - Antrum biopsy Clinical Info: Hiatal hernia Specimen Number: [id number] CPT code: 23928 METHODOLOGY: Deparaffinized sections of prefer/formalin-fixed tissue or PAP/DQ stained slides are incubated with monoclonal/polyclonal antibodies/oligonucleotide probes. Localization is made via biotin free immunoperoxidase method. Appropriate controls are performed and reacted as expected. Results on target cell population are indicated in the following table: RESULTS: ANTIBODY / CLONE RESULT Block A H Pylori (polyclonal) negative These tests were developed and their performance characteristics determined by [facility]. They may not have been cleared or approved by the U.S. Food and Drug Administration. The FDA has determined that such clearance or approval is not necessary. INTERPRETATION: A. Antrum, biopsy: Negative for Helicobacter pylori organisms. SJ:lisandra 10/01/18 PHYSICIAN AND INSTITUTION [address] [address] Signed Ryan Tinoco MD 10/02/18 [facility] [address] [place], [address] CALCIFIDIOL (78589) VIT D 25 on 08-26-2018 25-Hydroxyvitamin D2+25-Hydroxyvitamin D3 mass conc 32.1 ng/mL Normal 30.0-100.0 [facility] Work Phone: Comment on above: Vitamin D deficiency has been defined by the [place] and an Endocrine Society practice guideline as alevel of serum 25-OH vitamin D less than 20 ng/mL (1,2).The Endocrine Society went on to further define vitamin Dinsufficiency as a level between 21 and 29 ng/mL (2).1. IOM ([place] [employer]). 2010. Dietary reference intakes for calcium and D. [place]: The National Academies Press.2. Rayne MF, Luan ST, Brittany ERVIN, et al. Evaluation, treatment, and prevention of vitamin D deficiency: an Endocrine Society clinical practice guideline. JCEM. 2010; 96(7):1911-30. PATIENT NOT FASTINGP ERFORMED BY: [employer] [facility][1] [id number] BY: FOODITY LabPIE Softwarerp Niaosu5513 [facility] [id number] CBC (AUTO) (23775)on 019 Erythrocyte distribution width Ratio (RBC) 14.7 % Normal 12.3-15.4 [facility] Work Phone: Comment on above: PATIENT NOT FASTINGP ERFORMED BY: [employer] [facility] Ugiqlhfvny8795 [facility][1] [id number] BY: FOODITY LabDrawbridge Inc.6370 [facility] [id number] Hematocrit Volume Fraction (Bld) 42.7 % Normal 37.5-51.0 [facility] Work Phone: Comment on above: PATIENT NOT FASTINGP ERFORMED BY: [employer] [facility] Qfmnqjqhsy3849 [facility][1] [id number] BY: FOOD[employer] [facility] Yplaex2253 Haney RoadDublin [place] [id number] Hemoglobin mass conc (Bld) 14.1 g/dL Normal 13.0-17.7 [facility] Internal Medicine Work Phone: Comment on above: PATIENT NOT FASTINGP ERFORMED BY: [facility] [address] [id number] BY: CB [facility] Cuuulc3406 Haney RoadDublin [place] [id number] MCH Entitic mass (RBC) 26.8 pg Normal 26.6-33.0 [facility] Internal Medicine Work Phone: Comment on above: PATIENT NOT FASTINGP ERFORMED BY: [facility] [address] [id number] BY: TONYA [facility] Wxqxlw8902 Haney RoadUNC Health Chatham [id number] MCHC mass conc (RBC) 33.0 g/dL Normal 31.5-35.7 [facility] Internal Medicine Work Phone: Comment on above: PATIENT NOT FASTINGP ERFORMED BY: [facility] [address] [id number] BY: TONYA [facility] Scvjlj7104 [address] [facility] [id number] MCV Entitic volume (RBC) 81 fL Normal 79-97 [facility] Internal Medicine Work Phone: Comment on above: PATIENT NOT FASTINGP ERFORMED BY: [facility] [address] [id number] BY: CB [facility] Ahrhkj0385 Haney RoadAtrium Health Cabarrusin [place] [id number] Platelets #/vol (Bld) 309 {x10E3/uL} Normal 150-379 [facility] Internal Medicine Work Phone: Comment on above: PATIENT NOT FASTINGP ERFORMED BY: [facility] [address] [id number] BY: CB [facility] Luoecf9937 [address]aney RoadDublin [place] [id number] RBC #/vol (Bld) 5.27 {x10E6/uL} Normal 4.14-5.80 [facility] daytonensive Internal Medicine Work Phone: Comment on above: PATIENT NOT FASTINGP ERFORMED BY: [facility] [address] [id number] BY: [facility] Linlyp5255 [address]aney RoadDublin [place] [id number] WBC #/vol (Bld) 6.8 {x10E3/uL} Normal 3.4-10.8 Compr ensive Internal Medicine Work Phone: Comment on above: PATIENT NOT FASTINGP ERFORMED BY: [facility] [address] [id number] BY: TONYA [facility] Iavtlr[address] [facility]in [place] [id number] CBC (AUTO) (08207)Ordered By : Calliope Player on 08-26-2018 Platelets (Bld) [#/Vol] 309 10*3/uL Normal 150-379 [facility]; [facility] Work Phone: Comment on above: PATIENT NOT FASTINGP ERFORMED BY: [facility] [address] [id number] BY: [facility] Cvlxdf1530 [address] [facility] [id number] RBC (Bld) [#/Vol] 5.27 10*6/uL Normal 4.14-5.80 Compr ensive Internal Medicine; [facility] Work Phone: Comment on above: PATIENT NOT FASTINGP ERFORMED BY: [facility] [address] [id number] BY: LabCo Evnonw0543 [address] [facility]in [place] [id number] WBC (Bld) [#/Vol] 6.8 10*3/uL Normal 3.4-10.8 [facility]; [facility] Work Phone: Comment on above: PATIENT NOT FASTINGP ERFORMED BY: [facility] [address] [id number] BY: [employer] Ggjbtf3589 [facility] [id number] LIPOPROTEIN, BLD, BY NMR (80 178)on 08-26-2018 Cholesterol mass conc 138 mg/dL Normal 100-199 Com prehensive Internal Medicine Work Phone: Comment on above: PATIENT NOT FASTINGP ERFORMED BY: LabPIE Software[address] [id number] BY: [employer] Noitay6043 [facility] [id number] Lipoprotein.alpha molar conc 33.2 umol/L Normal [facility] Work Phone: Comment on above: PATIENT NOT FASTINGP ERFORMED BY: LabPIE Software[address] [id number] BY: [employer] Qeqnhu8208 [facility] [id number] Lipoprotein.beta.subpar ticle Entitic length 19.7 nm Abnormal Comprehensi ve Internal Medicine Work Phone: Comment on above: INTERPRETATIVE INFORMATION PARTICLE CONCENTRATION AND SIZE <--Lower CVD Risk Higher CVD Risk--> LDL AND HDL PARTICLES Percentile in Reference Population HDL-P (total) High 75th 50th 25th Low >34.9 34.9 30.5 26.7 <26.7 . Small LDL-P Low 25th 50th 75th High <117 117 527 839 >839 . LDL Size <-Large (Pattern A)-> <-Small (Pattern B)-> 23.0 20.6 20.5 19.0 Augie deleon LDL-P and LDL Size are associated with CVD risk, but not afterLDL-P is taken into account. .These assays were developed and their performance characteristicsdetermined by [employer]. These assays have not been cleared by [place] Food and Drug Administration. The clinical utility of theselaboratory values have not been fully established. PATIENT NOT FASTINGP ERFORMED BY: LabCo[address] [id number] BY: [facility] Zdpank6748 [address]aney RoadDublin [place] [id number] Lipoprotein.beta.subpar ticle molar conc 789 nmol/L Normal [facility] Work Phone: Comment on above: Low < 1000 Moderate 1000 - 1299 Borderline-High 1300 - 1599 High 1600 - 2000 Very High > 2000 PATIENT NOT FASTINGP ERFORMED BY: LabPIE Software[address] [id number] BY: [facility] Qhbuqx[address] MergeLocalblin [place] [id number] Lipoprotein.beta.subpar ticle.small molar conc 622 nmol/L Abnormal [facility] Internal Medicine Work Phone: Comment on above: PATIENT NOT FASTINGP ERFORMED BY: [facility] [address] [id number] BY: FOODITY [facility] Hrlbvf4405 [address] MergeLocalAtrium Health [place]arrusin [place] [id number] Triglyceride mass conc 170 mg/dL Abnormal 0-149 [facility] Internal Medicine Work Phone: Comment on above: PATIENT NOT FASTINGP ERFORMED BY: [facility] [address] [id number] BY: [facility] Sjqalh5[address] [facility]in [place] [id number] LIPOPROTEIN, BLD, BY NMR (46169) 55 mg/dL Normal 0-99 [facility] Work Phone: Comment on above: . Optimal < 100 Abov e optimal 100 - 129 Borderline 130 - 159 High 160 - 189 Very high > 189 .LDL-C is inaccurate if patient is non-fasting. PATIENT NOT FASTINGP ERFORMED BY: [facility] Dbketbbchc2269 [facility][1] [id number] BY: [facility] Prdjir8[address] [facility] [id number] LIPOPROTEIN, BLD, BY NMR (76968) 49 mg/dL Normal [facility] Work Phone: Comment on above: PATIENT NOT FASTINGP ERFORMED BY: [facility] [address] [id number] BY: [facility] Ilayun8811 [facility] [id number] LIPOPROTEIN, BLD, BY NMR (81 271)Ordered By: Calliope Player on 08-26-2018 LIPOPROTEIN, BLD, BY NMR (75186) 170 mg/dL Abnormal 0-149 [facility]; [facility] Work Phone: LIPOPROTEIN, BLD, BY NMR (14616) 138 mg/dL Normal 100-199 [facility]; [facility] Work Phone: METABOLIC PANEL, COMPREHENSI VE (64725)on 08-26-2018 Albumin mass conc 4.5 g/dL Normal 3.5-5.5 Compreh ensive Internal Medicine Work Phone: Comment on above: PATIENT NOT FASTINGP ERFORMED BY: [facility] Ccefnuehjk9360 [facility][1] [id number] BY: [facility] Rfbooe9105 [facility] [id number] Albumin/Globulin mass ratio 1.5 {ratio} Normal 1.2-2.2 [facility] Work Phone: Comment on above: PATIENT NOT FASTINGP ERFORMED BY: [facility] Mvkjfnpulx7276 [facility][1] [id number] BY: [facility] Mxhtkq6335 [facility] [id number] ALP enzyme act/vol 91 [iU]/L Normal 39-117 Compre hensive Internal Medicine Work Phone: Comment on above: PATIENT NOT FASTINGP ERFORMED BY: [facility] [address] [id number] BY: CB [facility] Qvziyb4259 [address] RoadDublin [place] [id number] ALT enzyme act/vol 27 [iU]/L Normal 0-44 [facility] Internal Medicine Work Phone: Comment on above: PATIENT NOT FASTINGP ERFORMED BY: [facility] [address] [id number] BY: CB [facility] Zepsbq8115 [address] RoadDublin [place] [id number] AST enzyme act/vol 20 [iU]/L Normal 0-40 [facility] Internal Medicine Work Phone: Comment on above: PATIENT NOT FASTINGP ERFORMED BY: LabCo[address] [id number] BY: [facility] Jqoskv9721 [address] RoadDublin [place] [id number] Bilirubin mass conc 0.3 mg/dL Normal 0.0-1.2 Compr [facility] Internal Medicine Work Phone: Comment on above: PATIENT NOT FASTINGP ERFORMED BY: Lab[address] [id number] BY: [facility] Ixwhut8763 [address] RoadDublin [place] [id number] Calcium mass conc 9.5 mg/dL Normal 8.7-10.2 Compreh [facility] centerive Internal Medicine Work Phone: Comment on above: PATIENT NOT FASTINGP ERFORMED BY: [facility] [address] [id number] BY: [facility] Hddhsb7971 [address] RoadDublin [place] [id number] Chloride molar conc 104 mmol/L Normal 96-106 Compr ensive Internal Medicine Work Phone: Comment on above: PATIENT NOT FASTINGP ERFORMED BY: LabCo[address] [id number] BY: [facility] Edpomw1777 [address] RoadDublin [place] [id number] CO2 molar conc 23 mmol/L Normal 20-29 Comprehens arianna Internal Medicine Work Phone: Comment on above: PATIENT NOT FASTINGP ERFORMED BY: BN [facility] Glynwevwpr[address] [id number] BY: CB [facility] Ifwznb7874 [address] RoadDuin [place] [id number] Creatinine mass conc 0.83 mg/dL Normal 0.76-1.27 Comp rehensive Internal Medicine Work Phone: Comment on above: PATIENT NOT FASTINGP ERFORMED BY: BN [facility] [address] [id number] BY: CB [facility] Ytqpmr7839 [address] [facility] [id number] GFR/1.73 sq M predicted among blacks CKD-EPI vol rate/area (S/P/Bld) 112 mL/min/1.73 Normal Comprehe nsive Internal Medicine Work Phone: Comment on above: PATIENT NOT FASTINGP ERFORMED BY: BN [facility] [address] [id number] BY: CB [facility] Gkvjbb8606 [address] [facility] [id number] GFR/1.73 sq M predicted among non-blacks CKD-EPI vol rate/area (S/P/Bld) 97 mL/min/1.73 Normal [facility] Work Phone: Comment on above: PATIENT NOT FASTINGP ERFORMED BY: BN [facility] [address] [id number] BY: CB [facility] Tpqwgy9848 [address] [facility]in [place] [id number] Globulin mass conc (S) 3.1 g/dL Normal 1.5-4.5 Co [facility] medicine[facility] Internal Medicine Work Phone: Comment on above: PATIENT NOT FASTINGP ERFORMED BY: BN [facility] [address] [id number] BY: CB [facility] [id number] [facility] [id number] Glucose mass conc 94 mg/dL Normal 65-99 [facility] Work Phone: Comment on above: PATIENT NOT FASTINGP ERFORMED BY: [facility] [address] [id number] BY: [facility] Xtkywd1190 [address]aney RoadAtrium Health [place]in [place] [id number] Potassium molar conc 5.0 mmol/L Normal 3.5-5.2 Comp rehensive Internal Medicine Work Phone: Comment on above: PATIENT NOT FASTINGP ERFORMED BY: [facility] [id number] BY: [facility] Tjcswb3614 [facility] [id number] Protein mass conc 7.6 g/dL Normal 6.0-8.5 Compre[facility] Work Phone: Comment on above: PATIENT NOT FASTINGP ERFORMED BY: [facility] [id number] BY: [facility] [id number] [facility] [place] [id number] Sodium molar conc 143 mmol/L Normal 134-144 Compre[facility] ens[facility] Work Phone: Comment on above: PATIENT NOT FASTINGP ERFORMED BY: [facility] [id number] BY: [facility] Ushgvz4388 [facility] [place] [id number] Urea nitrogen mass conc 11 mg/dL Normal 6-24 C omprehensive Internal Medicine Work Phone: Comment on above: PATIENT NOT FASTINGP ERFORMED BY: [facility] [id number] BY: [facility] Nstgvi4314 Haney RoadDublin [place] [id number] Urea nitrogen/Creatinine mass ratio 13 mg/mg Normal 9-20 [facility] Work Phone: Comment on above: PATIENT NOT FASTINGP ERFORMED BY: [facility] [address] [id number] BY: CB [facility] Drgygl6576 Haney RoadDublin [place] [id number] METABOLIC PANEL, COMPREHENSI VE ([id number])Ordered By: Calliope Player on 08-26-2018 ALP [Catalytic activity/Vol] 91 U/L Normal 39-117 [facility]; [facility] Work Phone: Comment on above: PATIENT NOT FASTINGP ERFORMED BY: [facility] [address] [id number] BY: CB [facility] Dytlqj8893 Haney RoadDublin [place] [id number] ALT [Catalytic activity/Vol] 27 U/L Normal 0-44 [facility]; [facility] Work Phone: Comment on above: PATIENT NOT FASTINGP ERFORMED BY: [facility] [address] [id number] BY: [facility] [id number] Haney RoadDublin [place] [id number] AST [Catalytic activity/Vol] 20 U/L Normal 0-40 [facility]; [facility] Work Phone: Comment on above: PATIENT NOT FASTINGP ERFORMED BY: [facility] [id number] BY: [facility] Etrrdf3766 Haney RoadDublin [place] [id number] SED RATE ERYTHROCYTE ([id number]) on 08-26-2018 ESR Velocity (Bld) 6 mm/h Normal 0-30 [facility] Internal Medicine Work Phone: Comment on above: PATIENT NOT FASTINGP ERFORMED BY: [facility] [address] [id number] BY: CB [facility] Vbfuah1249 [address]aney RoadDublin [place] [id number] T3, FREE (TRIDOTHYRONINE) (0 2172)on 08-26-2018 T3 free mass conc 3.5 pg/mL Normal 2.0-4.4 Compreh ensive Internal Medicine Work Phone: Comment on above: PATIENT NOT FASTINGP ERFORMED BY: [employer] [id number] BY: [employer] [id number] [facility] [id number] T4, FREE (THYROXINE) ([id number]) on 08-26-2018 T4 free mass conc 1.32 ng/dL Normal 0.82-1.77 Compreh ensive Internal Medicine Work Phone: Comment on above: PATIENT NOT FASTINGP ERFORMED BY: [employer] [id number] BY: [employer] Gscooh7213 [facility] [id number] TSH (25350)on 08-26-2018 Thyrotropin Qn 2.990 {uIU/mL} Normal 0.450-4.50 0 [facility] Work Phone: Comment on above: PATIENT NOT FASTINGP ERFORMED BY: [employer] [id number] BY: [employer] Mkjgtq9565 [facility] [id number] Troponin I (61992)Ordered By : Calliope Player on 08-26-2018 Troponin I.cardiac [Mass/Vol] ng/mL Normal 0.00-0.04 [facility]; [facility] Work Phone: Comment on above: PATIENT NOT FASTINGP ERFORMED BY: [employer] [id number] BY: [employer] [id number] [facility] [id number] Troponin I (98408)on 019 Troponin I.cardiac mass conc ng/mL Normal 0.00-0.04 [facility] Work Phone: Comment on above: PATIENT NOT FASTINGP ERFORMED BY: [employer] [id number] BY: [employer] Ningyf0656 [facility] [id number] VITAMIN B-12 (CYANOCOBALAMIN ) ([id number])on 08-26-2018 Cobalamin (Vitamin B12) mass conc 1397 pg/mL Abnormal 232-1245 [facility] Work Phone: Comment on above: PATIENT NOT FASTINGP ERFORMED BY: [facility] [id number] BY: [facility]CoRobert [facility] HospitalRoqjrr4007 [place] Mer[facility]LocalUNC [facility] [id number] Gram stain for investigation of transfusion reaction Microscopic observation Gram stain Nom (Unsp spec) [facility] Work Phone: No Panel Information SARS-CoV-2 & FLU Antigen (Rapid) [facility] Work Phone: Vital Signs Date Time Vital Sign Value Performing Clinician Facility 04-16-2025 08:34-0400 Body height 182.[address] Jocelin Saunders DO Work Phone: [facility] 04-16-2025 08:34-0400 Body mass index (BMI) [Ratio] 33.2 kg/m2 Dr. Jocelin Saunders DO Work Phone: [facility] 04-16-2025 08:34-0400 Body temperature 97.6 [degF] Dr. Jocelin Saunders DO Work Phone: [facility] 04-16-2025 08:34-0400 Body weight 111.[address] Jocelin Saunders DO Work Phone: [facility] 04-16-2025 08:34-0400 Diastolic blood pressure 77 mm[Hg] Dr. Jocelin Saunders DO Work Phone: [facility] 04-16-2025 08:34-0400 Heart rate 55 /min Dr. Jocelin Saunders DO Work Phone: [facility] 04-16-2025 08:34-0400 Respiratory rate 16 /min Dr. Jocelin Saunders DO Work Phone: [facility] 04-16-2025 08:34-0400 SaO2% (BldA) [Mass fraction] 96 % Dr. Jocelin Saunders DO Work Phone: [facility] 04-16-2025 08:34-0400 Systolic blood pressure 129 mm[Hg] Dr. Jocelin Saunders DO Work Phone: [facility] 02-04-2025 11:50-0400 Body height 182.[address] Jocelin Saunders DO Work Phone: [facility] 02-04-2025 11:50-0400 Body mass index (BMI) [Ratio] 33 kg/m2 Dr. Jocelin Saunders DO Work Phone: [facility] 02-04-2025 11:50-0400 Body temperature 98.5 [degF] Dr. Jocelin Saunders DO Work Phone: [facility] 02-04-2025 11:50-0400 Body weight 110.[address] Jocelin Saunders DO Work Phone: [facility] 02-04-2025 11:50-0400 Diastolic blood pressure 75 mm[Hg] Dr. Jocelin Saunders DO Work Phone: [facility] 02-04-2025 11:50-0400 Heart rate 55 /min Dr. Jocelin Saunders DO Work Phone: [facility] 02-04-2025 11:50-0400 Respiratory rate 16 /min Dr. Jocelin Saunders DO Work Phone: [facility] 02-04-2025 11:50-0400 SaO2% (BldA) [Mass fraction] 96 % Dr. Jocelin Saunders DO Work Phone: [facility] 02-04-2025 11:50-0400 Systolic blood pressure 131 mm[Hg] Dr. Jocelin Saunders DO Work Phone: [facility] 01-05-2025 08:19-0400 Body mass index (BMI) [Ratio] 32.6 kg/m2 Dr. Jocelin Saunders DO Work Phone: [facility] 01-05-2025 08:19-0400 Body temperature 97.7 [degF] Dr. Jocelin Saunders DO Work Phone: [facility] 01-05-2025 08:19-0400 Body weight 109.[address] Jocelin Saunders DO Work Phone: [facility] 01-05-2025 08:19-0400 Diastolic blood pressure 78 mm[Hg] Dr. Jocelin Saunders DO Work Phone: [facility] 01-05-2025 08:19-0400 Heart rate 58 /min Dr. Jocelin Saunders DO Work Phone: [facility] 01-05-2025 08:19-0400 Respiratory rate 20 /min Dr. Jocelin Saunders DO Work Phone: [facility] 01-05-2025 08:19-0400 SaO2% (BldA) [Mass fraction] 96 % Dr. Jocelin Saunders DO Work Phone: [facility] 01-05-2025 08:19-0400 Systolic blood pressure 157 mm[Hg] Dr. Jocelin Saunders DO Work Phone: [facility] 11-05-2024 11:42-0400 Body height 182.[address] Jocelin Saunders DO Work Phone: [facility] 11-05-2024 11:42-0400 Body mass index (BMI) [Ratio] 32.5 kg/m2 Dr. Jocelin Saunders DO Work Phone: [facility] 11-05-2024 11:42-0400 Body temperature 97.9 [degF] Dr. Jocelin Saunders DO Work Phone: [facility] 11-05-2024 11:42-0400 Body weight 109.[address] Jocelin Saunders DO Work Phone: [facility] 11-05-2024 11:42-0400 Diastolic blood pressure 74 mm[Hg] Dr. Jocelin Saunders DO Work Phone: [facility] 11-05-2024 11:42-0400 Heart rate 56 /min Dr. Jocelin Saunders DO Work Phone: [facility] 11-05-2024 11:42-0400 Respiratory rate 16 /min Dr. Jocelin Saunders DO Work Phone: [facility] 11-05-2024 11:42-0400 SaO2% (BldA) [Mass fraction] 95 % Dr. Jocelin Saunders DO Work Phone: [facility] 11-05-2024 11:42-0400 Systolic blood pressure 122 mm[Hg] Dr. Jocelin Saunders DO Work Phone: [facility] 07-28-2024 13:58-0500 Body mass index (BMI) [Ratio] 31.9 kg/m2 Shinal Maynard DIRECTOR HOSPICE OPERATIONS-[employer] Work Phone: [facility] 07-28-2024 13:58-0500 Body temperature 98.49 [degF] Shinal Maynard DIRECTOR HOSPICE OPERATIONS-[employer] Work Phone: [facility] 07-28-2024 13:58-0500 Body weight 106.82 kg Shinal Maynard DIRECTOR HOSPICE OPERATIONS[employer] Work Phone: [facility] 07-28-2024 13:58-0500 Diastolic blood pressure 66 mm[Hg] Shinal Maynard DIRECTOR HOSPICE OPERATIONS[employer] Work Phone: [facility] 07-28-2024 13:58-0500 Heart rate 66 /min Shinal Maynard DIRECTOR HOSPICE OPERATIONS[employer] Work Phone: [facility] 07-28-2024 13:58-0500 Respiratory rate 18 /min Shinal Maynard DIRECTOR HOSPICE OPERATIONS[employer] Work Phone: [facility] 07-28-2024 13:58-0500 SaO2% (BldA) [Mass fraction] 99 % Alem Maynard DIRECTOR HOSPICE OPERATIONS[employer] Work Phone: [facility] 07-28-2024 13:58-0500 Systolic blood pressure 138 mm[Hg] Alem Maynard DIRECTOR HOSPICE OPERATIONS[employer] Work Phone: [facility] 08-06-2023 09:50-0500 Body height 182.[address] Jocelin Saunders Work Phone: [facility] 08-06-2023 09:48-0500 Body mass index (BMI) [Ratio] 32.9 kg/m2 Dr. Jocelin Saunders Work Phone: [facility] 08-06-2023 09:48-0500 Body temperature 97.9 [degF] Dr. Jocelin Saunders Work Phone: [facility] 08-06-2023 09:48-0500 Body weight 110.[address] Jocelin Saunders Work Phone: [facility] 08-06-2023 09:48-0500 Diastolic blood pressure 78 mm[Hg] Dr. Jocelin Saunders Work Phone: [facility] 08-06-2023 09:48-0500 Heart rate 59 /min Dr. Jocelin Saunders Work Phone: [facility] 08-06-2023 09:48-0500 Respiratory rate 18 /min Dr. Jocelin Saunders Work Phone: [facility] 08-06-2023 09:48-0500 SaO2% (BldA) [Mass fraction] 96 % Dr. Jocelin Saunders Work Phone: [facility] 08-06-2023 09:48-0500 Systolic blood pressure 133 mm[Hg] Dr. oJcelin Saunders Work Phone: [facility] 07-30-2023 13:00-0500 Body mass index (BMI) [Ratio] 32.85 kg/m2 Katelyn Lawton MD Work Phone: [facility] 07-30-2023 13:00-0500 Body temperature 97.81 [degF] Katelyn Lawton MD Work Phone: 1(279)300-082607 [address] 07-30-2023 13:00-0500 Body weight 110 kg Katelyn Lawton MD Work Phone: 7(874)[phone] [place] [address] 07-30-2023 13:00-0500 Diastolic blood pressure 78 mm[Hg] Katelyn Lawton MD Work Phone: 2(189)902-953984 [place] [address] 07-30-2023 13:00-0500 Heart rate 63 /min Katelyn Lawton MD Work Phone: 5(031)[phone] [place] [address] 07-30-2023 13:00-0500 Respiratory rate 18 /min Katelyn Lawton MD Work Phone: 0(712)244-392784 [place] [address] 07-30-2023 13:00-0500 SaO2% (BldA) [Mass fraction] 95 % Katelyn Lawton MD Work Phone: 7(763)[phone] [place] [address] 07-30-2023 13:00-0500 Systolic blood pressure 146 mm[Hg] Katelyn Lawton MD Work Phone: [facility] 05-06-2023 11:38-0400 Body height 182.[address] Jocelin Saunders Work Phone: [facility] 05-06-2023 11:38-0400 Body mass index (BMI) [Ratio] 32.5 kg/m2 Dr. Jocelin Saunders Work Phone: [facility] 05-06-2023 11:38-0400 Body temperature 99.3 [degF] Dr. Jocelin Saunders Work Phone: [facility] 05-06-2023 11:38-0400 Body weight 109.[address] Jocelin Saunders Work Phone: [facility] 05-06-2023 11:38-0400 Diastolic blood pressure 73 mm[Hg] Dr. Jocelin Saudners Work Phone: [facility] 05-06-2023 11:38-0400 Heart rate 63 /min Dr. oJcelin Saunders Work Phone: [facility] 05-06-2023 11:38-0400 Respiratory rate 16 /min Dr. Jocelin Saunders Work Phone: [facility] 05-06-2023 11:38-0400 SaO2% (BldA) [Mass fraction] 96 % Dr. Jocelin Saunders Work Phone: [facility] 05-06-2023 11:38-0400 Systolic blood pressure 120 mm[Hg] Dr. Jocelin Saunders Work Phone: [facility] 05-03-2023 12:33-0400 Body weight 108.[address] Jocelin Saunders Work Phone: [facility] 05-03-2023 12:33-0400 Diastolic blood pressure 75 mm[Hg] Dr. Jocelin Saunders Work Phone: [facility] 05-03-2023 12:33-0400 Heart rate 62 /min Dr. Jocelin Saunders Work Phone: [facility] 05-03-2023 12:33-0400 Respiratory rate 16 /min Dr. Jocelin Saunders Work Phone: [facility] 05-03-2023 12:33-0400 SaO2% (BldA) [Mass fraction] 96 % Dr. Jocelin Saunders Work Phone: [facility] 05-03-2023 12:33-0400 Systolic blood pressure 136 mm[Hg] Dr. Jocelin Saunders Work Phone: [facility] 04-03-2023 08:32-0400 Body height 182.88 cm Terese Micki DIRECTOR OF PSYCHIATRY [facility]; [facility] Work Phone: 04-03-2023 08:32-0400 Body mass index (BMI) [Ratio] 32.69 kg/m2 Terese Sweet LPN [facility]; [facility] Work Phone: 04-03-2023 08:32-0400 Body surface area Derived from formula 2.31 m2 Terese Sweet DIRECTOR OF PSYCHIATRY [facility]; [facility] Work Phone: 04-03-2023 08:32-0400 Body temperature 98.1 [degF] Terese Sweet DIRECTOR OF PSYCHIATRY [facility]; [facility] Work Phone: 04-03-2023 08:32-0400 Body weight 109.32 kg Terese Sweet LPN [facility] Internal [facility]; [facility] Work Phone: 04-03-2023 08:32-0400 Diastolic blood pressure 60 mm[Hg] Terese Sweet [facility]; [facility] Work Phone: 04-03-2023 08:32-0400 Heart rate 59 /min Terese Sweet [facility]; [facility] Work Phone: 04-03-2023 08:32-0400 Respiratory rate 16 /min Terese Sweet [facility]; [facility] Work Phone: 04-03-2023 08:32-0400 SaO2% (BldA) [Mass fraction] 97 % Terese Sweet [facility]; [facility] Work Phone: 04-03-2023 08:32-0400 Systolic blood pressure 112 mm[Hg] Terese Sweet [facility]; [facility] Work Phone: 01-30-2023 09:03-0400 Body height 182.88 cm [facility]; [facility] Work Phone: 01-30-2023 09:03-0400 Body mass index (BMI) [Ratio] 32.43 kg/m2 Víctor Mick DIRECTOR OF PSYCHIATRY [facility]; [facility] Work Phone: 01-30-2023 09:03-0400 Body surface area Derived from formula 2.3 m2 [facility]; [facility] Work Phone: 01-30-2023 09:03-0400 Body temperature 98 [degF] [facility]; [facility] Work Phone: 01-30-2023 09:03-0400 Body weight 108.47 kg [facility]; [facility] Work Phone: 01-30-2023 09:03-0400 Diastolic blood pressure 70 mm[Hg] [facility]; [facility] Work Phone: 01-30-2023 09:03-0400 Heart rate 65 /min [facility]; [facility] Work Phone: 01-30-2023 09:03-0400 Respiratory rate 16 /min [facility]; [facility] Work Phone: 01-30-2023 09:03-0400 SaO2% (BldA) [Mass fraction] 95 % [facility]; [facility] Work Phone: 01-30-2023 09:03-0400 Systolic blood pressure 122 mm[Hg] [facility]; [facility] Work Phone: 12-31-2022 09:14-0400 Body height 182.88 cm [facility]; [facility] Work Phone: 12-31-2022 09:14-0400 Body mass index (BMI) [Ratio] 32.55 kg/m2 [facility]; [facility] Work Phone: 12-31-2022 09:14-0400 Body surface area Derived from formula 2.3 m2 [facility]; [facility] Work Phone: 12-31-2022 09:14-0400 Body temperature 97 [degF] [facility]; [facility] Work Phone: 12-31-2022 09:14-0400 Body weight 108.86 kg [facility]; [facility] Work Phone: 12-31-2022 09:14-0400 Diastolic blood pressure 70 mm[Hg] [facility]; [facility] Work Phone: 12-31-2022 09:14-0400 Heart rate 55 /min [facility]; [facility] Work Phone: 12-31-2022 09:14-0400 SaO2% (BldA) [Mass fraction] 96 % [facility]; [facility] Work Phone: 12-31-2022 09:14-0400 Systolic blood pressure 122 mm[Hg] [facility]; [facility] Work Phone: 10-22-2022 07:42-0400 Body height 182.[address] Jocelin Saunders Work Phone: [facility] 10-22-2022 07:42-0400 Body mass index (BMI) [Ratio] 31.8 kg/m2 Dr. Jocelin Saunders Work Phone: [facility] 10-22-2022 07:42-0400 Body temperature 97.4 [degF] Dr. Jocelin Saunders Work Phone: [facility] 10-22-2022 07:42-0400 Body weight 106.[address] Jocelin Saunders Work Phone: [facility] 10-22-2022 07:42-0400 Diastolic blood pressure 83 mm[Hg] Dr. Jocelin Saunders Work Phone: [facility] 10-22-2022 07:42-0400 Heart rate 65 /min Dr. Jocelin Saunders Work Phone: [facility] 10-22-2022 07:42-0400 Respiratory rate 18 /min Dr. Jocelin Saunders Work Phone: [facility] 10-22-2022 07:42-0400 SaO2% (BldA) [Mass fraction] 96 % Dr. Jocelin Saunders Work Phone: [facility] 10-22-2022 07:42-0400 Systolic blood pressure 134 mm[Hg] Dr. Jocelin Saunders Work Phone: [facility] 10-18-2022 08:50-0400 Body temperature 98.3 [degF] Dr. Jocelin Saunders Work Phone: [facility] 10-18-2022 08:50-0400 Diastolic blood pressure 81 mm[Hg] Dr. Jocelin Saunders Work Phone: [facility] 10-18-2022 08:50-0400 Heart rate 62 /min Dr. Jocelin Saunders Work Phone: [facility] 10-18-2022 08:50-0400 Respiratory rate 17 /min Dr. Jocelin Saunders Work Phone: [facility] 10-18-2022 08:50-0400 SaO2% (BldA) [Mass fraction] 96 % Dr. Jocelin Saunders Work Phone: [facility] 10-18-2022 08:50-0400 Systolic blood pressure 130 mm[Hg] Dr. Jocelin Saunders Work Phone: [facility] 10-05-2022 12:50-0400 Body height 182.[address] Jocelin Saunders Work Phone: [facility] 10-05-2022 12:50-0400 Body mass index (BMI) [Ratio] 31.5 kg/m2 Dr. Jocelin Saunders Work Phone: [facility] 10-05-2022 12:50-0400 Diastolic blood pressure 69 mm[Hg] Dr. Jocelin Saunders Work Phone: [facility] 10-05-2022 12:50-0400 Systolic blood pressure 114 mm[Hg] Dr. Jocelin Saunders Work Phone: [facility] 10-05-2022 10:21-0400 Body temperature 98.4 [degF] Dr. Jocelin Saunders Work Phone: [facility] 10-05-2022 10:21-0400 Body weight 105.[address] Jocelin Sanuders Work Phone: [facility] 10-05-2022 10:21-0400 Heart rate 62 /min Dr. Jocelin Saunders Work Phone: [facility] 10-05-2022 10:21-0400 Respiratory rate 15 /min Dr. Jocelin Saunders Work Phone: [facility] 10-05-2022 10:21-0400 SaO2% (BldA) [Mass fraction] 95 % Dr. Jocelin Saunders Work Phone: [facility] 10-04-2022 10:44-0400 Body mass index (BMI) [Ratio] 31.9 kg/m2 Dr. Jocelin Saunders Work Phone: [facility] 10-04-2022 10:44-0400 Body temperature 98.7 [degF] Dr. Jocelin Saunders Work Phone: [facility] 10-04-2022 10:44-0400 Body weight 106.[address] Jocelin Saunders Work Phone: [facility] 10-04-2022 10:44-0400 Diastolic blood pressure 78 mm[Hg] Dr. Jocelin Saunders Work Phone: [facility] 10-04-2022 10:44-0400 Heart rate 64 /min Dr. Jocelin Saunders Work Phone: [facility] 10-04-2022 10:44-0400 Respiratory rate 16 /min Dr. Jocelin Saunders Work Phone: [facility] 10-04-2022 10:44-0400 SaO2% (BldA) [Mass fraction] 97 % Dr. Jocelin Saunders Work Phone: [facility] 10-04-2022 10:44-0400 Systolic blood pressure 123 mm[Hg] Dr. Jocelin Saunders Work Phone: [facility] 09-27-2022 08:04-0500 Body height 182.88 cm Loulou Church MA [facility]; [facility] Work Phone: 09-27-2022 08:04-0500 Body mass index (BMI) [Ratio] 31.91 kg/m2 Loulou Church MA [facility]; [facility] Work Phone: 09-27-2022 08:04-0500 Body surface area Derived from formula 2.28 m2 Loulou Church MA [facility]; [facility] Work Phone: 09-27-2022 08:04-0500 Body temperature 98.1 [degF] Loulou Church MA [facility]; [facility] Work Phone: 09-27-2022 08:04-0500 Body weight 106.74 kg Loulou Church MA [facility]; [facility] Work Phone: 09-27-2022 08:04-0500 Diastolic blood pressure 80 mm[Hg] Loulou Church MA [facility]; [facility] Work Phone: 09-27-2022 08:04-0500 Heart rate 62 /min Loulou Church MA [facility] Internal Medicine; [facility] Work Phone: 09-27-2022 08:04-0500 Respiratory rate 16 /min Loulou Church MA [facility]; [facility] Work Phone: 09-27-2022 08:04-0500 SaO2% (BldA) [Mass fraction] 96 % Loulou Church MA [facility]; [facility] Work Phone: 09-27-2022 08:04-0500 Systolic blood pressure 140 mm[Hg] Loulou Church MA [facility]; [facility] Work Phone: 09-20-2022 13:53-0500 Body mass index (BMI) [Ratio] 31.6 kg/m2 Dr. Jocelin Saunders Work Phone: [facility] 09-20-2022 13:53-0500 Body temperature 98.9 [degF] Dr. Jocelin Saunders Work Phone: [facility] 09-20-2022 13:53-0500 Body weight 105.[address] Jocelin Saunders Work Phone: [facility] 09-20-2022 13:53-0500 Diastolic blood pressure 75 mm[Hg] Dr. Jocelin Saunders Work Phone: [facility] 09-20-2022 13:53-0500 Heart rate 72 /min Dr. Jocelin Saunders Work Phone: [facility] 09-20-2022 13:53-0500 Respiratory rate 18 /min Dr. Jocelin Saunders Work Phone: [facility] 09-20-2022 13:53-0500 SaO2% (BldA) [Mass fraction] 95 % Dr. Jocelin Saunders Work Phone: [facility] 09-20-2022 13:53-0500 Systolic blood pressure 123 mm[Hg] Dr. Jocelin Saunders Work Phone: [facility] 09-06-2022 10:49-0500 Body height 182.[address] Jocelin Saunders Work Phone: [facility] 09-06-2022 10:49-0500 Body mass index (BMI) [Ratio] 31.6 kg/m2 Dr. Jocelin Saunders Work Phone: [facility] 09-06-2022 10:49-0500 Body temperature 98.3 [degF] Dr. Jocelin Saunders Work Phone: [facility] 09-06-2022 10:49-0500 Body weight 105.[address] Jocelin Saunders Work Phone: [facility] 09-06-2022 10:49-0500 Diastolic blood pressure 80 mm[Hg] Dr. Jocelin Saunders Work Phone: [facility] 09-06-2022 10:49-0500 Heart rate 68 /min Dr. Jocelin Saunders Work Phone: [facility] 09-06-2022 10:49-0500 Respiratory rate 16 /min Dr. Jocelin Saunders Work Phone: [facility] 09-06-2022 10:49-0500 SaO2% (BldA) [Mass fraction] 95 % Dr. Jocelin Saunders Work Phone: [facility] 09-06-2022 10:49-0500 Systolic blood pressure 121 mm[Hg] Dr. Jocelin Saunders Work Phone: [facility] 08-30-2022 12:56-0500 Body mass index (BMI) [Ratio] 31.7 kg/m2 Dr. Jocelin Saunders Work Phone: [facility] 08-30-2022 12:56-0500 Body temperature 98.7 [degF] Dr. Jocelin Saunders Work Phone: [facility] 08-30-2022 12:56-0500 Body weight 106.[address] Jocelin Saunders Work Phone: [facility] 08-30-2022 12:56-0500 Diastolic blood pressure 76 mm[Hg] Dr. Jocelin Saunders Work Phone: [facility] 08-30-2022 12:56-0500 Heart rate 70 /min Dr. Jocelin Saunders Work Phone: [facility] 08-30-2022 12:56-0500 Respiratory rate 18 /min Dr. Jocelin Saunders Work Phone: [facility] 08-30-2022 12:56-0500 SaO2% (BldA) [Mass fraction] 94 % Dr. Jocelin Saunders Work Phone: [facility] 08-30-2022 12:56-0500 Systolic blood pressure 129 mm[Hg] Dr. Jocelin Saunders Work Phone: [facility] 08-23-2022 10:47-0500 Body height 182.[address] Jocelin Saunders Work Phone: [facility] 08-23-2022 10:47-0500 Body mass index (BMI) [Ratio] 31.3 kg/m2 Dr. Jocelin Saunders Work Phone: [facility] 08-23-2022 10:47-0500 Body temperature 97.8 [degF] Dr. Jocelin Saunders Work Phone: [facility] 08-23-2022 10:47-0500 Body weight 104.[address] Jocelin Saunders Work Phone: [facility] 08-23-2022 10:47-0500 Diastolic blood pressure 78 mm[Hg] Dr. Jocelin Saunders Work Phone: [facility] 08-23-2022 10:47-0500 Heart rate 65 /min Dr. Jocelin Saunders Work Phone: [facility] 08-23-2022 10:47-0500 Respiratory rate 16 /min Dr. Jocelin Saunders Work Phone: [facility] 08-23-2022 10:47-0500 SaO2% (BldA) [Mass fraction] 96 % Dr. Jocelin Saunders Work Phone: [facility] 02-02-2023 10:47-0500 Systolic blood pressure 129 mm[Hg] Dr. Jocelin Saunders Work Phone: [facility] 08-20-2022 06:58-0500 Body height 182.[address] Jocelin Saunders Work Phone: [facility] 08-20-2022 06:58-0500 Body mass index (BMI) [Ratio] 31 kg/m2 Dr. Jocelin Saunders Work Phone: [facility] 08-20-2022 06:58-0500 Body temperature 97.5 [degF] Dr. Jocelin Saunders Work Phone: [facility] 08-20-2022 06:58-0500 Body weight 103.[address] Jocelin Saunders Work Phone: [facility] 08-20-2022 06:58-0500 Diastolic blood pressure 81 mm[Hg] Dr. Jocelin Saunders Work Phone: [facility] 08-20-2022 06:58-0500 Heart rate 70 /min Dr. Jocelin Saunders Work Phone: [facility] 08-20-2022 06:58-0500 Respiratory rate 18 /min Dr. Jocelin Saunders Work Phone: [facility] 08-20-2022 06:58-0500 SaO2% (BldA) [Mass fraction] 95 % Dr. Jocelin Saunders Work Phone: [facility] 08-20-2022 06:58-0500 Systolic blood pressure 138 mm[Hg] Dr. Jocelin Saunders Work Phone: [facility] 08-16-2022 13:07-0500 Body height 182.[address] Jocelin Saunders Work Phone: [facility] 08-16-2022 13:07-0500 Body mass index (BMI) [Ratio] 31.1 kg/m2 Dr. Jocelin Saunders Work Phone: [facility] 08-16-2022 13:07-0500 Body temperature 98.6 [degF] Dr. Jocelin Saunders Work Phone: [facility] 08-16-2022 13:07-0500 Body weight 104.[address] oJcelin Saunders Work Phone: [facility] 08-16-2022 13:07-0500 Diastolic blood pressure 77 mm[Hg] Dr. Jocelin Saunders Work Phone: [facility] 08-16-2022 13:07-0500 Heart rate 69 /min Dr. Jocelin Saunders Work Phone: [facility] 08-16-2022 13:07-0500 Respiratory rate 16 /min Dr. Jocelin Saunders Work Phone: [facility] 08-16-2022 13:07-0500 SaO2% (BldA) [Mass fraction] 96 % Dr. Jocelin Saunders Work Phone: [facility] 08-16-2022 13:07-0500 Systolic blood pressure 132 mm[Hg] Dr. Jocelin Saunders Work Phone: [facility] 08-09-2022 14:47-0500 Body mass index (BMI) [Ratio] 31.6 kg/m2 Dr. Jocelin Saunders Work Phone: [facility] 08-09-2022 14:47-0500 Body temperature 98.1 [degF] Dr. Jocelin Saunders Work Phone: [facility] 08-09-2022 14:47-0500 Body weight 105.[address] Jocelin Saunders Work Phone: [facility] 08-09-2022 14:47-0500 Diastolic blood pressure 84 mm[Hg] Dr. Jocelin Saunders Work Phone: [facility] 08-09-2022 14:47-0500 Heart rate 72 /min Dr. Jocelin Saunders Work Phone: [facility] 08-09-2022 14:47-0500 Respiratory rate 16 /min Dr. Jocelin Saunders Work Phone: [facility] 08-09-2022 14:47-0500 SaO2% (BldA) [Mass fraction] 93 % Dr. Jocelin Saunders Work Phone: [facility] 08-09-2022 14:47-0500 Systolic blood pressure 167 mm[Hg] Dr. Jocelin Saunders Work Phone: [facility] 08-09-2022 08:15-0500 Body weight 106.[address] Jocelin Saunders Work Phone: [facility] 08-09-2022 08:15-0500 Heart rate 66 /min Dr. Jocelin Saunders Work Phone: [facility] 08-09-2022 08:15-0500 SaO2% (BldA) [Mass fraction] 95 % Dr. Jocelin Saunders Work Phone: [facility] 08-08-2022 14:19-0500 Body mass index (BMI) [Ratio] 31.8 kg/m2 Dr. Jocelin Saunders Work Phone: [facility] 08-08-2022 14:19-0500 Body temperature 98.4 [degF] Dr. Jocelin Saunders Work Phone: [facility] 08-08-2022 14:19-0500 Body weight 106.[address] Jocelin Saunders Work Phone: [facility] 08-08-2022 14:19-0500 Diastolic blood pressure 90 mm[Hg] Dr. Jocelin Saunders Work Phone: [facility] 08-08-2022 14:19-0500 Heart rate 61 /min Dr. Jocelin Saunders Work Phone: [facility] 08-08-2022 14:19-0500 Respiratory rate 18 /min Dr. Jocelin Saunders Work Phone: [facility] 08-08-2022 14:19-0500 SaO2% (BldA) [Mass fraction] 95 % Dr. Jocelin Saunders Work Phone: [facility] 08-08-2022 14:19-0500 Systolic blood pressure 158 mm[Hg] Dr. Jocelin Saunders Work Phone: [facility] 07-09-2022 08:12-0500 Body mass index (BMI) [Ratio] 31.9 kg/m2 Dr. Jocelin Saunders Work Phone: [facility] 07-09-2022 08:12-0500 Body temperature 97.5 [degF] Dr. Jocelin Saunders Work Phone: [facility] 07-09-2022 08:12-0500 Body weight 106.[address] Jocelin Saunders Work Phone: [facility] 07-09-2022 08:12-0500 Diastolic blood pressure 74 mm[Hg] Dr. Jocelin Saunders Work Phone: [facility] 07-09-2022 08:12-0500 Heart rate 72 /min Dr. Jocelin Saunders Work Phone: [facility] 07-09-2022 08:12-0500 Respiratory rate 20 /min Dr. Jocelin Saunders Work Phone: [facility] 07-09-2022 08:12-0500 SaO2% (BldA) [Mass fraction] 93 % Dr. Jocelin Saunders Work Phone: [facility] 07-09-2022 08:12-0500 Systolic blood pressure 128 mm[Hg] Dr. Jocelin Saunders Work Phone: [facility] 07-04-2022 11:35-0500 Body mass index (BMI) [Ratio] 32.2 kg/m2 Dr. Jocelin Saunders Work Phone: [facility] 07-04-2022 11:35-0500 Body temperature 99 [degF] Dr. Jocelin Saunders Work Phone: [facility] 07-04-2022 11:35-0500 Body weight 107.[address] Jocelin Saunders Work Phone: [facility] 07-04-2022 11:35-0500 Diastolic blood pressure 66 mm[Hg] Dr. Jocelin Saunders Work Phone: [facility] 07-04-2022 11:35-0500 Heart rate 69 /min Dr. Jocelin Saunders Work Phone: [facility] 07-04-2022 11:35-0500 Respiratory rate 22 /min Dr. Jocelin Saunders Work Phone: [facility] 07-04-2022 11:35-0500 SaO2% (BldA) [Mass fraction] 94 % Dr. Jocelin Saunders Work Phone: [facility] 07-04-2022 11:35-0500 Systolic blood pressure 152 mm[Hg] Dr. Jocelin Saunders Work Phone: [facility] 06-28-2022 09:54-0500 Body height 182.88 cm Juanito Wells [facility]; [facility] Work Phone: 06-28-2022 09:54-0500 Body mass index (BMI) [Ratio] 32[facility]; [facility] Work Phone: 06-28-2022 09:54-0500 Body surface area Derived from formula 2.29 m2 [facility]; [facility] Work Phone: 06-28-2022 09:54-0500 Body temperature 98.4 [degF] [facility]; [facility] Work Phone: 06-28-2022 09:54-0500 Body weight 107.67 kg tonya [facility]; [facility] Work Phone: 06-28-2022 09:54-0500 Diastolic blood pressure 68 mm[Hg] [facility]; [facility] Work Phone: 06-28-2022 09:54-0500 Heart rate 68 /min [facility]; [facility] Work Phone: 06-28-2022 09:54-0500 Respiratory rate 18 /min [facility] Com[facility] e [facility]; [facility] Work Phone: 06-28-2022 09:54-0500 SaO2% (BldA) [Mass fraction] 94 % [facility]; [facility] Work Phone: 06-28-2022 09:54-0500 Systolic blood pressure 114 mm[Hg] [facility]; [facility] Work Phone: 06-11-2022 13:04-0500 Body mass index (BMI) [Ratio] 32 kg/m2 Dr. Jocelin Saunders Work Phone: [facility] 06-11-2022 13:04-0500 Body temperature 97.8 [degF] Dr. Jocelin Saunders Work Phone: [facility] 06-11-2022 13:04-0500 Body weight 107.[address] Jocelin Saunders Work Phone: [facility] 06-11-2022 13:04-0500 Diastolic blood pressure 83 mm[Hg] Dr. Jocelin Saunders Work Phone: [facility] 06-11-2022 13:04-0500 Heart rate 83 /min Dr. Jocelin Saunders Work Phone: [facility] 06-11-2022 13:04-0500 Respiratory rate 16 /min Dr. Jocelin Saunders Work Phone: [facility] 06-11-2022 13:04-0500 SaO2% (BldA) [Mass fraction] 93 % Dr. Jocelin Saunders Work Phone: [facility] 06-11-2022 13:04-0500 Systolic blood pressure 137 mm[Hg] Dr. Jocelin Saunders Work Phone: [facility] 06-06-2022 08:46-0500 Body height 182.88 cm Eufemiawillow Patel [facility]; [facility] Work Phone: 06-06-2022 08:46-0500 Body mass index (BMI) [Ratio] 32.01 kg/m2 Eufemia Leonidandrea [facility]; [facility] Work Phone: 06-06-2022 08:46-0500 Body surface area Derived from formula 2.29 m2 Eufemia Jaquezandrea [facility]; [facility] Work Phone: 06-06-2022 08:46-0500 Body temperature 97.3 [degF] Eufemia Leonidandrea [employer] Comprehensiv e Internal Medicine; [facility] Work Phone: 06-06-2022 08:46-0500 Body weight 107.05 kg Eufemia Jaquezandrea [employer] [facility]; [facility] Work Phone: 06-06-2022 08:46-0500 Diastolic blood pressure 80 mm[Hg] Eufemia Jaquezius [employer] [facility]; [facility] Work Phone: 06-06-2022 08:46-0500 Heart rate 90 /min Eufemia Leonidius [employer] [facility]; [facility] Work Phone: 06-06-2022 08:46-0500 Respiratory rate 16 /min Eufemia Jaquezius [employer] Comprehensiv e [facility]; [facility] Work Phone: 06-06-2022 08:46-0500 SaO2% (BldA) [Mass fraction] 95 % Eufemia Leonidius [employer] [facility]; [facility] Work Phone: 06-06-2022 08:46-0500 Systolic blood pressure 120 mm[Hg] Eufemia Leonidius [facility]; [facility] Work Phone: 06-04-2022 15:19-0500 Diastolic blood pressure 84 mm[Hg] Dr. Jocelin Saunders Work Phone: [facility] 06-04-2022 15:19-0500 Heart rate 84 /min Dr. Jocelin Saunders Work Phone: [facility] 06-04-2022 15:19-0500 Respiratory rate 17 /min Dr. Jocelin Saunders Work Phone: [facility] 06-04-2022 15:19-0500 SaO2% (BldA) [Mass fraction] 95 % Dr. Jocelin Saunders Work Phone: [facility] 06-04-2022 15:19-0500 Systolic blood pressure 136 mm[Hg] Dr. Jocelin Saunders Work Phone: [facility] 06-04-2022 12:56-0500 Inhaled oxygen flow rate 2 L/min Dr. Jocelin Saunders Work Phone: [facility] 06-04-2022 10:34-0500 Body temperature 98.6 [degF] Dr. Jocelin Saunders Work Phone: [facility] 06-04-2022 08:45-0500 Body height 182.[address] Jocelin Saunders Work Phone: [facility] Work Phone: 06-04-2022 08:45-0500 Body mass index (BMI) [Ratio] 32.5 kg/m2 Dr. Jocelin Saunders Work Phone: [facility] 06-04-2022 08:45-0500 Body weight 108.[address] Jocelin Saunders Work Phone: [facility] 06-03-2022 11:43-0500 Body temperature 97.8 [degF] Dr. Jocelin Saunders Work Phone: [facility] 06-03-2022 11:43-0500 Diastolic blood pressure 78 mm[Hg] Dr. Jocelin Saunders Work Phone: [facility] 06-03-2022 11:43-0500 Heart rate 66 /min Dr. Jocelin Saunders Work Phone: [facility] 06-03-2022 11:43-0500 Respiratory rate 18 /min Dr. Jocelin Saunders Work Phone: [facility] 06-03-2022 11:43-0500 SaO2% (BldA) [Mass fraction] 99 % Dr. Jocelin Saunders Work Phone: [facility] 06-03-2022 11:43-0500 Systolic blood pressure 134 mm[Hg] Dr. Jocelin Saunders Work Phone: [facility] 06-03-2022 07:50-0500 Body height 182.[address] Jocelin Saunders Work Phone: [facility] Work Phone: 06-03-2022 07:50-0500 Body mass index (BMI) [Ratio] 32.1 kg/m2 Dr. Jocelin Saunders Work Phone: [facility] 06-03-2022 07:50-0500 Body weight 107.[address] Jocelin Saunders Work Phone: [facility] 04-04-2022 10:41-0400 Body mass index (BMI) [Ratio] 32.1 kg/m2 Dr. Jocelin Saunders Work Phone: [facility] Work Phone: 04-04-2022 10:41-0400 Body temperature 98.5 [degF] Dr. Jocelin Saunders Work Phone: [facility] Work Phone: 04-04-2022 10:41-0400 Body weight 107.[address] Jocelin Saunders Work Phone: [facility] Work Phone: 04-04-2022 10:41-0400 Diastolic blood pressure 78 mm[Hg] Dr. Jocelin Saunders Work Phone: [facility] Work Phone: 04-04-2022 10:41-0400 Heart rate 63 /min Dr. Jocelin Saunders Work Phone: [facility] Work Phone: 04-04-2022 10:41-0400 Respiratory rate 18 /min Dr. Jocelin Saunders Work Phone: [facility] Work Phone: 04-04-2022 10:41-0400 SaO2% (BldA) [Mass fraction] 96 % Dr. Jocelni Saunders Work Phone: [facility] Work Phone: 04-04-2022 10:41-0400 Systolic blood pressure 134 mm[Hg] Dr. Jocelin Saunders Work Phone: [facility] Work Phone: 03-05-2022 08:15-0400 Body height 182.88 cm Eufemia Patel [facility]; [facility] Work Phone: 03-05-2022 08:15-0400 Body mass index (BMI) [Ratio] 32.96 kg/m2 Eufemia Jaquezandrea [facility]; [facility] Work Phone: 03-05-2022 08:15-0400 Body surface area Derived from formula 2.31 m2 Eufemia Jaquezandrea [facility]; [facility] Work Phone: 03-05-2022 08:15-0400 Body temperature 97.3 [degF] Eufemia Patel [facility] Comprehensiv e Internal Medicine; [facility] Work Phone: Comment on above: Method: Infrared 03-05-2022 08:15-0400 Body weight 110.22 kg Eufemia Jaquezandrea [facility]; [facility] Work Phone: 03-05-2022 08:15-0400 Diastolic blood pressure 64 mm[Hg] Eufemia Patel [facility]; [facility] Work Phone: Comment on above: Patient Position: Sitting; Cuff Location : Left Arm; Cuff Size: Standard 03-05-2022 08:15-0400 Heart rate 67 /min Eufemia Patel [facility]; [facility] Work Phone: Comment on above: Pattern: Regular 03-05-2022 08:15-0400 Respiratory rate 18 /min Eufemia Patel [facility] Comprehensiv e Internal Medicine; [facility] Work Phone: Comment on above: Pattern: Unlabored 03-05-2022 08:15-0400 SaO2% (BldA) [Mass fraction] 95 % Eufemia Patel [facility]; [facility] Work Phone: Comment on above: Room air 03-05-2022 08:15-0400 Systolic blood pressure 118 mm[Hg] Eufemia Patel [facility]; [facility] Work Phone: Comment on above: Patient Position: Sitting; Cuff Location : Left Arm; Cuff Size: Standard 02-09-2022 09:43-0400 Diastolic blood pressure 83 mm[Hg] Dr. Jocelin Saunders Work Phone: [facility] Work Phone: 02-09-2022 09:43-0400 Systolic blood pressure 132 mm[Hg] Dr. Jocelin Saunders Work Phone: [facility] Work Phone: 02-09-2022 08:20-0400 Body mass index (BMI) [Ratio] 32.6 kg/m2 Dr. Jocelin Saunders Work Phone: [facility] Work Phone: 02-09-2022 08:20-0400 Body weight 109.[address] Jocelin Saunders Work Phone: [facility] Work Phone: 02-09-2022 08:20-0400 Heart rate 66 /min Dr. Jocelin Saunders Work Phone: [facility] Work Phone: 02-09-2022 08:20-0400 Respiratory rate 16 /min Dr. Jocelin Saunders Work Phone: [facility] Work Phone: 02-09-2022 08:20-0400 SaO2% (BldA) [Mass fraction] 96 % Dr. Jocelin Saunders Work Phone: [facility] Work Phone: 10-30-2021 10:15-0400 Body height 182.88 cm Eufemia Patel [facility]; [facility] Work Phone: 10-30-2021 10:15-0400 Body mass index (BMI) [Ratio] 32.41 kg/m2 Eufemia Patel [facility]; [facility] Work Phone: 10-30-2021 10:15-0400 Body surface area Derived from formula 2.3 m2 Eufemia Patel [facility]; [facility] Work Phone: 10-30-2021 10:15-0400 Body temperature 97.3 [degF] Eufemia Patel [facility] Comprehensiv e Internal Medicine; [facility] Work Phone: Comment on above: Method: Infrared 10-30-2021 10:15-0400 Body weight 108.41 kg Eufemia Patel [facility]; [facility] Work Phone: 10-30-2021 10:15-0400 Diastolic blood pressure 70 mm[Hg] Eufemia Patel [facility]; [facility] Work Phone: Comment on above: Patient Position: Sitting; Cuff Location : Left Arm; Cuff Size: Standard 10-30-2021 10:15-0400 Heart rate 64 /min Eufemia Patel [facility]; [facility] Work Phone: Comment on above: Pattern: Regular 10-30-2021 10:15-0400 Respiratory rate 18 /min Eufemia Patel [facility] Comprehensiv e Internal Medicine; [facility] Work Phone: Comment on above: Pattern: Unlabored 10-30-2021 10:15-0400 SaO2% (BldA) [Mass fraction] 97 % Eufemia Patel [facility]; [facility] Work Phone: Comment on above: Room air 10-30-2021 10:15-0400 Systolic blood pressure 118 mm[Hg] Eufemia Patel [facility]; [facility] Work Phone: Comment on above: Patient Position: Sitting; Cuff Location : Left Arm; Cuff Size: Standard 10-30-2021 09:32-0400 Body height 182.88 cm Eufemia Patel [facility]; [facility] Work Phone: 10-30-2021 09:32-0400 Body mass index (BMI) [Ratio] 32.69 kg/m2 Eufemia Patel [facility]; [facility] Work Phone: 10-30-2021 09:32-0400 Body surface area Derived from formula 2.31 m2 Eufemia Patel [facility]; [facility] Work Phone: 10-30-2021 09:32-0400 Body weight 109.32 kg Eufemia Patel [facility]; [facility] Work Phone: 06-26-2021 09:08-0500 Body height 182.88 cm Letty Lazofelix [facility]; [facility] Work Phone: 06-26-2021 09:08-0500 Body mass index (BMI) [Ratio] 32.69 kg/m2 Letty Slarb DIRECTOR OF PSYCHIATRY [facility]; [facility] Work Phone: 06-26-2021 09:08-0500 Body surface area Derived from formula 2.31 m2 Letty Slarb DIRECTOR OF PSYCHIATRY [facility]; [facility] Work Phone: 06-26-2021 09:08-0500 Body temperature 97.3 [degF] Letty Slarb DIRECTOR OF PSYCHIATRY [facility]; [facility] Work Phone: 06-26-2021 09:08-0500 Body weight 109.32 kg Letty Bolton DIRECTOR OF PSYCHIATRY [facility]; [facility] Work Phone: 06-26-2021 09:08-0500 Diastolic blood pressure 78 mm[Hg] Letty Bolton DIRECTOR OF PSYCHIATRY [facility]; [facility] Work Phone: Comment on above: Patient Position: Sitting; Cuff Location : Left Arm; Cuff Size: Standard 06-26-2021 09:08-0500 Heart rate 74 /min Letty Bolton DIRECTOR OF PSYCHIATRY [facility]; [facility] Work Phone: Comment on above: Pattern: Regular 06-26-2021 09:08-0500 Respiratory rate 16 /min Letty Bolton DIRECTOR OF PSYCHIATRY [facility]; [facility] Work Phone: Comment on above: Pattern: Unlabored 06-26-2021 09:08-0500 SaO2% (BldA) [Mass fraction] 97 % Letty Bolton [facility]; [facility] Work Phone: Comment on above: Room air 06-26-2021 09:08-0500 Systolic blood pressure 122 mm[Hg] Letty Bolton DIRECTOR OF PSYCHIATRY [facility]; [facility] Work Phone: Comment on above: Patient Position: Sitting; Cuff Location : Left Arm; Cuff Size: Standard 12-21-2020 07:48-0400 Body height 182.88 cm [facility]; [facility] Work Phone: 12-21-2020 07:48-0400 Body mass index (BMI) [Ratio] 31.6 kg/m2 [facility]; [facility] Work Phone: 12-21-2020 07:48-0400 Body surface area Derived from formula 2.27 m2 [facility]; [facility] Work Phone: 12-21-2020 07:48-0400 Body temperature 96.9 [degF] [facility]; [facility] Work Phone: Comment on above: Method: Thermal Scan 12-21-2020 07:48-0400 Body weight 105.69 kg [facility]; [facility] Work Phone: 12-21-2020 07:48-0400 Diastolic blood pressure 70 mm[Hg] [facility]; [facility] Work Phone: Comment on above: Patient Position: Sitting; Cuff Location : Left Arm; Cuff Size: Standard 12-21-2020 07:48-0400 Heart rate 71 /min [facility]; [facility] Work Phone: Comment on above: Pattern: Regular 12-21-2020 07:48-0400 Respiratory rate 16 /min [facility]; [facility] Work Phone: Comment on above: Pattern: Unlabored 12-21-2020 07:48-0400 SaO2% (BldA) [Mass fraction] 98 % [facility]; [facility] Work Phone: Comment on above: Room air 12-21-2020 07:48-0400 Systolic blood pressure 122 mm[Hg] [facility]; [facility] Work Phone: Comment on above: Patient Position: Sitting; Cuff Location : Left Arm; Cuff Size: Standard 08-25-2020 12:56-0500 Body mass index (BMI) [Ratio] 31.3 kg/m2 Dr. Jocelin Saunders Work Phone: [facility] 08-25-2020 12:56-0500 Body temperature 98.7 [degF] Dr. Jocelin Saunders Work Phone: [facility] 08-25-2020 12:56-0500 Body weight 104.[address] Jocelin Saunders Work Phone: [facility] 08-25-2020 12:56-0500 Diastolic blood pressure 87 mm[Hg] Dr. Jocelin Saunders Work Phone: [facility] 08-25-2020 12:56-0500 Heart rate 68 /min Dr. Jocelin Saunders Work Phone: [facility] 08-25-2020 12:56-0500 Respiratory rate 17 /min Dr. Jocelin Saunders Work Phone: [facility] 08-25-2020 12:56-0500 SaO2% (BldA) [Mass fraction] 95 % Dr. Jocelin Saunders Work Phone: [facility] 08-25-2020 12:56-0500 Systolic blood pressure 135 mm[Hg] Dr. Jocelin Saunders Work Phone: [facility] 05-02-2020 09:31-0400 BMI (Body Mass Index) 33.09 kg/m2 [facility] Work Phone: 05-02-2020 09:31-0400 Body weight 110.68 kg [facility] Work Phone: 05-02-2020 09:31-0400 BSA (Body Surface Area) 2.32 m2 [facility] Work Phone: 05-02-2020 09:31-0400 Height 182.88 cm [facility] Internal Medicine Work Phone: 04-25-2020 10:29-0400 BMI (Body Mass Index) 33.09 kg/m2 Eufemia Patel [facility] Work Phone: 04-25-2020 10:29-0400 Body Temperature 96.9 [degF] Eufemia Patel [facility] Comprehensiv e Internal Medicine Work Phone: Comment on above: Method: Infrared 04-25-2020 10:29-0400 Body weight 110.68 kg Eufemia Patel [facility] Work Phone: 04-25-2020 10:29-0400 BP Diastolic 90 mm[Hg] Eufemia Jaquezandrea [facility] Internal Medicine Work Phone: Comment on above: Patient Position: Sitting; Cuff Location : Left Arm; Cuff Size: Standard 04-25-2020 10:29-0400 BP Systolic 123 mm[Hg] Eufemia Patel [employer] [facility] Work Phone: Comment on above: Patient Position: Sitting; Cuff Location : Left Arm; Cuff Size: Standard 04-25-2020 10:29-0400 BSA (Body Surface Area) 2.32 m2 Eufemia Patel CMA [facility] Work Phone: 04-25-2020 10:290400 Height 182.88 cm Eufemia Patel CMA [facility] Work Phone: 04-25-2020 10:29-0400 Pulse (Heart Rate) 80 /min Eufemia Patel CMA [facility] Internal Medicine Work Phone: Comment on above: Pattern: Regular 04-25-2020 10:29-0400 Pulse Oximetry 97 % Jocelin Puja [facility] Internal Medicine Work Phone: Comment on above: Room air 04-25-2020 10:29-0400 Respiratory Rate 16 /min Eufemia Patel CMA Comprehens[facility] Medicine Work Phone: Comment on above: Pattern: Unlabored 04-25-2020 10:29-0400 SaO2% (BldA) [Mass fraction] 97 % Eufemia Patel [facility]; [facility] Work Phone: Comment on above: Room air 02-01-2020 13:18-0400 BMI (Body Mass Index) 32.55 kg/m2 Eufemia Patel [facility] Work Phone: 02-01-2020 13:18-0400 Body Temperature 97.6 [degF] Eufemia Patel CMA [facility] Work Phone: Comment on above: Method: Temporal 02-01-2020 13:18-0400 Body weight 108.86 kg Eufemia Patel [facility] Work Phone: 02-01-2020 13:18-0400 BP Diastolic 80 mm[Hg] Eufemia Patel [facility] Work Phone: Comment on above: Patient Position: Sitting; Cuff Location : Left Arm; Cuff Size: Standard 02-01-2020 13:18-0400 BP Systolic 100 mm[Hg] Eufemia Patel [facility] Work Phone: Comment on above: Patient Position: Sitting; Cuff Location : Left Arm; Cuff Size: Standard 02-01-2020 13:18-0400 BSA (Body Surface Area) 2.3 m2 Eufemia Patel [facility] Work Phone: 02-01-2020 13:18-0400 Height 182.88 cm Eufemia Patel [facility] Work Phone: 02-01-2020 13:18-0400 Pulse (Heart Rate) 115 /min Eufemia Patel CMA [facility] Internal Medicine Work Phone: Comment on above: Pattern: Regular 02-01-2020 13:18-0400 Pulse Oximetry 97 % Jocelin Saunders [facility] Internal Medicine Work Phone: Comment on above: Room air 02-01-2020 13:18-0400 Respiratory Rate 16 /min Eufemia Patel CMA [facility] Medicine Work Phone: Comment on above: Pattern: Unlabored 02-01-2020 13:18-0400 SaO2% (BldA) [Mass fraction] 97 % Eufemia Patel [facility]; [facility] Work Phone: Comment on above: Room air 01-11-2020 14:19-0400 BMI (Body Mass Index) 33.77 kg/m2 Eufemia Patel [facility] Work Phone: Comment on above: no vs taken as this is phone encounter d ue to covid 01-11-2020 14:19-0400 Body weight 112.95 kg Eufemia Patel [facility] Work Phone: Comment on above: no vs taken as this is phone encounter d ue to covid 01-11-2020 14:19-0400 BSA (Body Surface Area) 2.34 m2 Eufemia Patel [facility] Work Phone: Comment on above: no vs taken as this is phone encounter d ue to covid 01-11-2020 14:19-0400 Height 182.88 cm Eufemia Patel [employer] [facility] Work Phone: Comment on above: no vs taken as this is phone encounter d ue to covid 12-24-2019 09:52-0400 BMI (Body Mass Index) 33.77 kg/m2 Alba Orourke RN [facility] Work Phone: 12-24-2019 09:52-0400 Body Temperature 98 [degF] Alba Orourke RN [facility] Work Phone: Comment on above: Method: Temporal 12-24-2019 09:52-0400 Body weight 112.95 kg Alba Orourke RN [facility] Work Phone: 12-24-2019 09:52-0400 BP Diastolic 74 mm[Hg] Alba Orourke RN [facility] Work Phone: Comment on above: Patient Position: Sitting; Cuff Location : Left Arm; Cuff Size: Standard 12-24-2019 09:52-0400 BP Systolic 132 mm[Hg] Alba Orourke RN [facility] Work Phone: Comment on above: Patient Position: Sitting; Cuff Location : Left Arm; Cuff Size: Standard 12-24-2019 09:52-0400 BSA (Body Surface Area) 2.34 m2 Alba Oroukre RN [facility] Work Phone: 12-24-2019 09:52-0400 Height 182.88 cm Alba Orourke RN [facility] Work Phone: 12-24-2019 09:52-0400 Pulse (Heart Rate) 74 /min Alba Orourke RN [facility] Work Phone: Comment on above: Pattern: Regular 12-24-2019 09:52-0400 Respiratory Rate 16 /min Alba Orourke RN [facility] Work Phone: Comment on above: Pattern: Unlabored 04-13-2019 10:23-0400 BMI (Body Mass Index) 31.06 kg/m2 Talia Nguyen RN [facility] Work Phone: 04-13-2019 10:23-0400 Body weight 103.87 kg Talia Nguyen RN [facility] Work Phone: 04-13-2019 10:23-0400 BP Diastolic 88 mm[Hg] Talia Nguyen RN [facility] Work Phone: Comment on above: Patient Position: Sitting; Cuff Location : Left Arm; Cuff Size: Large 04-13-2019 10:23-0400 BP Systolic 142 mm[Hg] Talia Nguyen RN [facility] Work Phone: Comment on above: Patient Position: Sitting; Cuff Location : Left Arm; Cuff Size: Large 04-13-2019 10:23-0400 BSA (Body Surface Area) 2.26 m2 Talia Nguyen RN [facility] Work Phone: 04-13-2019 10:23-0400 Height 182.88 cm Talia Nguyen RN [facility] Work Phone: 04-13-2019 10:23-0400 Pulse (Heart Rate) 68 /min Talia Nguyen RN [facility] Internal Medicine Work Phone: Comment on above: Pattern: Regular 04-13-2019 10:23-0400 Pulse Oximetry 98 % Jocelin Saunders [facility] Work Phone: Comment on above: Room air 04-13-2019 10:23-0400 Respiratory Rate 18 /min Talia Nguyen RN Comprehens[facility] Medicine Work Phone: Comment on above: Pattern: Unlabored 04-13-2019 10:23-0400 SaO2% (BldA) [Mass fraction] 98 % Talia Nguyen RN [facility]; [facility] Work Phone: Comment on above: Room air 01-12-2019 11:11-0400 BMI (Body Mass Index) 30.72 kg/m2 Eufemia Patel [employer] [facility] Work Phone: 01-12-2019 11:11-0400 Body Temperature 97.2 [degF] Efuemia Patel CMA [facility] Work Phone: Comment on above: Method: Temporal 01-12-2019 11:11-0400 Body weight 102.74 kg Eufemia Patel CMA [facility] Work Phone: 01-12-2019 11:11-0400 BP Diastolic 78 mm[Hg] Eufemia Patel CMA [facility] Work Phone: Comment on above: Patient Position: Sitting; Cuff Location : Left Arm; Cuff Size: Standard 01-12-2019 11:11-0400 BP Systolic 106 mm[Hg] Eufemia Patel CMA [facility] Work Phone: Comment on above: Patient Position: Sitting; Cuff Location : Left Arm; Cuff Size: Standard 01-12-2019 11:11-0400 BSA (Body Surface Area) 2.25 m2 Eufemia Patel CMA [facility] Work Phone: 01-12-2019 11:11-0400 Height 182.88 cm Eufemia Patel CMA [facility] Work Phone: 01-12-2019 11:11-0400 Pulse (Heart Rate) 77 /min Eufemia Patel CMA [facility] Work Phone: Comment on above: Pattern: Regular 01-12-2019 11:11-0400 Pulse Oximetry 96 % Jocelin Saunders [facility] Internal Medicine Work Phone: Comment on above: Room air 01-12-2019 11:11-0400 Respiratory Rate 18 /min Eufemia Patel CMA Comprehens[facility] Medicine Work Phone: Comment on above: Pattern: Unlabored 01-12-2019 11:11-0400 SaO2% (BldA) [Mass fraction] 96 % Eufemia Patel CMA [facility]; [facility] Work Phone: Comment on above: Room air 01-12-2019 11:11-0400 Weight 102.74 kg Jocelin Saunders [facility] Internal Medicine Work Phone: 12-22-2018 10:43-0400 BMI (Body Mass Index) 30.45 kg/m2 Eufemia Patel CMA [facility] Work Phone: 12-22-2018 10:43-0400 Body Temperature 96.2 [degF] Eufemia Patel CMA [facility] Work Phone: Comment on above: Method: Temporal 12-22-2018 10:43-0400 Body weight 101.83 kg Eufemia Patel CMA [facility] Work Phone: 12-22-2018 10:43-0400 BP Diastolic 82 mm[Hg] Eufemia Patel CMA [facility] Work Phone: Comment on above: Patient Position: Sitting; Cuff Location : Left Arm; Cuff Size: Standard 12-22-2018 10:43-0400 BP Systolic 116 mm[Hg] Eufemia Patel CMA [facility] Work Phone: Comment on above: Patient Position: Sitting; Cuff Location : Left Arm; Cuff Size: Standard 12-22-2018 10:43-0400 BSA (Body Surface Area) 2.24 m2 Eufemia Patel CMA [facility] Work Phone: 12-22-2018 10:43-0400 Height 182.88 cm Eufemia Patel CMA [facility] Work Phone: 12-22-2018 10:43-0400 Pulse (Heart Rate) 74 /min Eufemia Patel CMA [facility] Work Phone: Comment on above: Pattern: Regular 12-22-2018 10:43-0400 Pulse Oximetry 95 % Jocelin Saunders [facility] Work Phone: Comment on above: Room air 12-22-2018 10:43-0400 Respiratory Rate 18 /min Eufemia Patel CMA [facility] Work Phone: Comment on above: Pattern: Unlabored 12-22-2018 10:43-0400 SaO2% (BldA) [Mass fraction] 95 % Eufemia Patel CMA [facility]; [facility] Work Phone: Comment on above: Room air 12-22-2018 10:43-0400 Weight 101.83 kg Jocelin Saunders [facility] Work Phone: 12-08-2018 14:48-0400 BMI (Body Mass Index) 30.58 kg/m2 Talia Nguyen RN [facility] Work Phone: 12-08-2018 14:48-0400 Body weight 102.29 kg Talia Nguyen RN [facility] Work Phone: 12-08-2018 14:48-0400 BP Diastolic 80 mm[Hg] Talia Nguyen RN [facility] Work Phone: Comment on above: Patient Position: Sitting; Cuff Location : Left Arm; Cuff Size: Large 12-08-2018 14:48-0400 BP Systolic 138 mm[Hg] Talia Nguyen RN [facility] Work Phone: Comment on above: Patient Position: Sitting; Cuff Location : Left Arm; Cuff Size: Large 12-08-2018 14:48-0400 BSA (Body Surface Area) 2.24 m2 Talia Nguyen RN [facility] Work Phone: 12-08-2018 14:48-0400 Height 182.88 cm Talia Nguyen RN [facility] Work Phone: 12-08-2018 14:48-0400 Pulse (Heart Rate) 78 /min Talia Nguyen RN [facility] Work Phone: Comment on above: Pattern: Regular 12-08-2018 14:48-0400 Pulse Oximetry 98 % Jocelin Saunders [facility] Work Phone: Comment on above: Room air 12-08-2018 14:48-0400 Respiratory Rate 20 /min Talia Nguyen RN [facility] Work Phone: Comment on above: Pattern: Unlabored 12-08-2018 14:48-0400 SaO2% (BldA) [Mass fraction] 98 % Talia Nguyen RN [facility]; [facility] Work Phone: Comment on above: Room air 12-08-2018 14:48-0400 Weight 102.29 kg Jocelin Saunders [facility] Work Phone: 12-01-2018 10:07-0400 BMI (Body Mass Index) 30.57 kg/m2 Talia Nguyen RN [facility] Work Phone: 12-01-2018 10:07-0400 Body weight 102.23 kg Talia Nguyen RN [facility] Work Phone: 12-01-2018 10:07-0400 BP Diastolic 80 mm[Hg] Talia Nguyen RN [facility] Work Phone: Comment on above: Patient Position: Sitting; Cuff Location : Left Arm; Cuff Size: Large 12-01-2018 10:07-0400 BP Systolic 118 mm[Hg] Talia Nguyen RN [facility] Work Phone: Comment on above: Patient Position: Sitting; Cuff Location : Left Arm; Cuff Size: Large 12-01-2018 10:07-0400 BSA (Body Surface Area) 2.24 m2 Talia Nguyen RN [facility] Work Phone: 12-01-2018 10:07-0400 Height 182.88 cm Talia Nguyen RN [facility] Work Phone: 12-01-2018 10:07-0400 Pulse (Heart Rate) 78 /min Talia Nguyen RN [facility] Work Phone: Comment on above: Pattern: Regular 12-01-2018 10:07-0400 Pulse Oximetry 98 % Jocelin Saunders [facility] Work Phone: Comment on above: Room air 12-01-2018 10:07-0400 Respiratory Rate 18 /min Talia Nguyen RN [facility] Work Phone: Comment on above: Pattern: Unlabored 12-01-2018 10:07-0400 SaO2% (BldA) [Mass fraction] 98 % Talia Nguyen RN [facility]; [facility] Work Phone: Comment on above: Room air 12-01-2018 10:07-0400 Weight 102.23 kg Jocelin Saunders [facility] Work Phone: 10-31-2018 08:07-0400 BMI (Body Mass Index) 32.43 kg/m2 Vinod Wyman LPN [facility] Work Phone: 10-31-2018 08:07-0400 Body Temperature 97 [degF] Vinod Wyman LPN [facility] Work Phone: Comment on above: Method: Temporal 10-31-2018 08:07-0400 Body weight 108.47 kg Vinod Wyman LPN [facility] Internal Medicine Work Phone: 10-31-2018 08:07-0400 BP Diastolic 82 mm[Hg] Vinod Wyman LPN [facility] Internal Medicine Work Phone: Comment on above: Patient Position: Sitting; Cuff Location : Left Arm; Cuff Size: Standard 10-31-2018 08:07-0400 BP Systolic 118 mm[Hg] Vinod Wyman LPN [facility] Internal Medicine Work Phone: Comment on above: Patient Position: Sitting; Cuff Location : Left Arm; Cuff Size: Standard 10-31-2018 08:07-0400 BSA (Body Surface Area) 2.3 m2 Vinod Wyman LPN [facility] Internal Medicine Work Phone: 10-31-2018 08:07-0400 Height 182.88 cm Vinod Wyman LPN [facility] Internal Medicine Work Phone: 10-31-2018 08:07-0400 Pulse (Heart Rate) 92 /min Vinod Wyman LPN [facility] Work Phone: Comment on above: Pattern: Regular 10-31-2018 08:07-0400 Pulse Oximetry 95 % Jocelin Saunders [facility] Internal Medicine Work Phone: Comment on above: Room air 10-31-2018 08:07-0400 Respiratory Rate 16 /min Vinod Wyman LPN [facility] Internal Medicine Work Phone: Comment on above: Pattern: Unlabored 10-31-2018 08:07-0400 SaO2% (BldA) [Mass fraction] 95 % Vinod Wyman LPN [facility] Internal Medicine; [facility] Work Phone: Comment on above: Room air 10-31-2018 08:07-0400 Weight 108.47 kg Jocelin Puja [facility] Internal Medicine Work Phone: 10-28-2018 08:25-0400 BMI (Body Mass Index) 32.43 kg/m2 Vinod Wyman LPN [facility] Internal Medicine Work Phone: 10-28-2018 08:25-0400 Body Temperature 97.6 [degF] Vinod Wyman LPN [facility] Internal Medicine Work Phone: Comment on above: Method: Temporal 10-28-2018 08:25-0400 Body weight 108.47 kg Vinod Wyman LPN [facility] Work Phone: 10-28-2018 08:25-0400 BP Diastolic 78 mm[Hg] Vinod Wyman LPN [facility] Work Phone: Comment on above: Patient Position: Sitting; Cuff Location : Left Arm; Cuff Size: Standard 10-28-2018 08:25-0400 BP Systolic 138 mm[Hg] Vinod Wyman LPN [facility] Internal Medicine Work Phone: Comment on above: Patient Position: Sitting; Cuff Location : Left Arm; Cuff Size: Standard 10-28-2018 08:25-0400 BSA (Body Surface Area) 2.3 m2 Vinod Wyman LPN [facility] Internal Medicine Work Phone: 10-28-2018 08:25-0400 Height 182.88 cm Vinod Wyman LPN [facility] Work Phone: 10-28-2018 08:25-0400 Pulse (Heart Rate) 103 /min Vinod Wyman LPN [facility] Work Phone: Comment on above: Pattern: Regular 10-28-2018 08:25-0400 Pulse Oximetry 94 % Jocelin Saunders [facility] Internal Medicine Work Phone: Comment on above: Room air 10-28-2018 08:25-0400 Respiratory Rate 16 /min Vinod Wyman LPN [facility] Internal Medicine Work Phone: Comment on above: Pattern: Unlabored 10-28-2018 08:25-0400 SaO2% (BldA) [Mass fraction] 94 % Vinod Wyman LPN [facility] Medicine; [facility] Work Phone: Comment on above: Room air 10-28-2018 08:25-0400 Weight 108.47 kg Jocelin Puja [facility] Internal Medicine Work Phone: 09-11-2018 08:45-0500 BMI (Body Mass Index) 32.43 kg/m2 Vinod Wyman LPN [facility] Internal Medicine Work Phone: 09-11-2018 08:45-0500 Body weight 108.47 kg Vinod Wyman LPN [facility] Internal Medicine Work Phone: 09-11-2018 08:45-0500 BP Diastolic 82 mm[Hg] Vinod Wyman LPN [facility] Internal Medicine Work Phone: Comment on above: Patient Position: Sitting; Cuff Location : Left Arm; Cuff Size: Standard 09-11-2018 08:45-0500 BP Systolic 130 mm[Hg] Vinod Wyman LPN [facility] Internal Medicine Work Phone: Comment on above: Patient Position: Sitting; Cuff Location : Left Arm; Cuff Size: Standard 09-11-2018 08:45-0500 BSA (Body Surface Area) 2.3 m2 Vinod Wyman LPN [facility] Internal Medicine Work Phone: 09-11-2018 08:45-0500 Height 182.88 cm Vinod Wyman LPN [facility] Internal Medicine Work Phone: 09-11-2018 08:45-0500 Pulse (Heart Rate) 86 /min Vinod Wyman LPN Comprehensiv e Internal Medicine Work Phone: Comment on above: Pattern: Regular 09-11-2018 08:45-0500 Pulse Oximetry 96 % Jocelin Saunders [facility] Internal Medicine Work Phone: Comment on above: Room air 09-11-2018 08:45-0500 Respiratory Rate 19 /min Vinod Wyman LPN [facility] Internal Medicine Work Phone: Comment on above: Pattern: Unlabored 09-11-2018 08:45-0500 SaO2% (BldA) [Mass fraction] 96 % Vinod Wyman LPN [facility] Internal Medicine; [facility] Work Phone: Comment on above: Room air 09-11-2018 08:45-0500 Weight 108.47 kg Jocelin Saunders [facility] Internal Medicine Work Phone: 08-26-2018 08:41-0500 BMI (Body Mass Index) 32.43 kg/m2 Talia Nguyen RN [facility] Work Phone: 08-26-2018 08:41-0500 Body weight 108.47 kg Talia Nguyen RN [facility] Work Phone: 08-26-2018 08:41-0500 BP Diastolic 86 mm[Hg] Talia Nguyen RN [facility] Work Phone: Comment on above: Patient Position: Sitting; Cuff Location : Left Arm; Cuff Size: Large 08-26-2018 08:41-0500 BP Systolic 134 mm[Hg] Talia Nguyen RN [facility] Work Phone: Comment on above: Patient Position: Sitting; Cuff Location : Left Arm; Cuff Size: Large 08-26-2018 08:41-0500 BSA (Body Surface Area) 2.3 m2 Talia Nguyen RN [facility] Work Phone: 08-26-2018 08:41-0500 Height 182.88 cm Talia Nguyen RN [facility] Work Phone: 08-26-2018 08:41-0500 Pulse (Heart Rate) 76 /min Talia Nguyen RN Comprehens arianna Internal Medicine Work Phone: Comment on above: Pattern: Regular 08-26-2018 08:41-0500 Pulse Oximetry 96 % Jocelin Saunders [facility] Work Phone: Comment on above: Room air 08-26-2018 08:41-0500 Respiratory Rate 18 /min Talia Nguyen RN Comprehensiv e Internal Medicine Work Phone: Comment on above: Pattern: Unlabored 08-26-2018 08:41-0500 SaO2% (BldA) [Mass fraction] 96 % Talia Nguyen RN [facility]; [facility] Work Phone: Comment on above: Room air 08-26-2018 08:41-0500 Weight 108.47 kg Jocelin Puja [facility] Work Phone: Encounters Encounter Date Encounter Type Care Provider Facility Start: 05-06-2025 End: 05-06-2025 ambulatory Jocelinteddy Saunders Facility:[facility] [place] Start: 04-26-2025 ambulatory Jocelinteddy Saunders Facilit y:[facility] Start: 04-16-2025 End: 04-16-[address] Hector Hsu MD -[facility] Work Phone: Start: 04-16-2025 End: 04-16-[address] Jocelin Saunders DO Work Phone: -[facility] Start: 02-04-2025 End: 02-04-2025 Patient encounter procedure Savi Rodriguez NP- -[facility] Work Phone: Start: 02-04-2025 End: 02-04-[address] Jocelin Saunders DO Work Phone: -[facility] Start: 01-21-[address] Tania Delgado MD -[facility] Start: 01-05-2025 End: 01-05-2025 Patient encounter procedure FERMENTER HELPER Loulou Gunter -[facility] Work Phone: Start: 01-05-2025 End: 01-05-[address] Jocelin Saunders DO Work Phone: [facility] Work Phone: Start: 11-05-2024 End: 11-05-[address] Sawyer Delgado MD -[facility] Work Phone: Start: 11-05-2024 End: 11-05-2024 ambulatory Jocelin Saunders Facility:[facility] Start: 10-22-[address] Tania Delgado MD -[facility] Start: 10-07-2024 End: 10-07-2024 ambulatory Maxine Lopez RN Oncology Nurse Christiane vicente Start: 08-03-2024 End: 08-03-2024 ambulatory Jocelin Saunders Facility:[facility] Start: 07-28-2024 End: 07-28-2024 Office outpatient visit 25 minutes Katelyn Lawton MD Work Phone: [facility] Comment on above: CML (chronic myeloid leukemia) (Primary Dx) Start: 07-28-2024 ambulatory JOCELIN SAUNDERS Facil ity:[facility] Start: 06-29-2024 End: 06-29-2024 ambulatory Jocelin Saunders Facility:[facility] Start: 06-01-2024 ambulatory Jocelin Saunders Facilit y:[facility] Start: 05-28-2024 End: 05-28-2024 ambulatory Jocelin Saunders Facility:[facility] Start: 05-25-2024 End: 05-25-2024 ambulatory Jocelin Saunders Facility:[facility] – [place] Start: 10-23-[address] Darek Saunders Work Phone: [facility] Start: 10-21-2023 End: 10-21-[address] Jocelin Saunders Work Phone: [facility] Work Phone: Start: 10-21-2023 End: 10-21-[address] Jocelin Saunders Work Phone: [facility], [facility] Work Phone: Start: 08-06-2023 End: 08-06-[address] Jocelin Saunders Work Phone: [facility] Work Phone: Start: 07-30-2023 End: 07-30-2023 Subsequent hospital visit by physician Katelyn Lawton MD Work Phone: Department of Radiology Comment on above: Arrived Start: 07-30-2023 End: 07-30-2023 Office outpatient visit 25 minutes Katelyn Lawtno MD Work Phone: [facility] Comment on above: CML (chronic myeloid leukemia) (Primary Dx); Acute midline low back pain with bilateral sciatica; Lumbar radiculopathy Start: 06-05-2023 End: 06-05-[address] Jocelin Saunders Work Phone: [facility] Work Phone: Start: 06-05-2023 End: 06-05-[address] Jocelin Saunders Work Phone: [facility]-Cat Scan, [facility] Work Phone: Start: 05-06-2023 End: 05-06-[address] Jocelin Saunders Work Phone: [facility] Work Phone: Start: 05-03-2023 End: 05-03-[address] Jocelin Saunders Work Phone: [facility] Work Phone: Start: 04-22-[address] Darek Saunders Work Phone: [facility] Start: 04-03-2023 End: 04-03-2023 Office outpatient visit 15 minutes Jocelin Saunders DO Work Phone: [facility] Start: 01-30-2023 End: 01-30-2023 Patient encounter procedure Jocelin Saunders DO Work Phone: [facility] Start: 12-31-2022 End: 12-31-2022 Office outpatient visit 25 minutes Jocelin Saunders DO Work Phone: [facility] Start: 10-22-2022 End: 10-22-[address] Jocelin Saunders Work Phone: [facility] Start: 10-18-[address] Darek Saunders Work Phone: [facility] Start: 10-18-2022 End: 10-18-[address] Jocelin Saunders Work Phone: [facility] Start: 10-18-2022 Non-patient / Non-visit Dr. Mio Saunders Work Phone: [facility] Start: 10-17-2022 End: 10-17-[address] Jocelin Saunders Work Phone: [facility] Work Phone: Start: 10-17-2022 End: 10-17-[address] Jocelin Saunders Work Phone: [facility]-Cardiovascular Services Start: 10-05-2022 End: 10-05-[address] Jocelin Saunders Work Phone: [facility] Work Phone: Start: 10-05-2022 End: 10-05-[address] Jocelin Saunders Work Phone: [facility] Start: 10-04-[address] Darek Saunders Work Phone: [facility] Start: 10-04-2022 End: 10-04-2022 Non-patient / Non-visit Dr. Jocelin Saunders Work Phone: [facility] Start: 10-04-2022 End: 10-04-[address] Jocelin Saunders Work Phone: [facility] Start: 09-27-2022 ambulatory Jocelin Saunders DO Comp rehensive Internal Med Start: 09-27-2022 End: 09-28-2022 Office outpatient visit 15 minutes Jocelin Saunders DO Work Phone: [facility] Start: 09-27-2022 Jocelin borja DO Work Phone: [facility] Start: 09-20-2022 End: 09-20-[address] Jocelin Saunders Work Phone: [facility] Start: 09-06-[address] Darek Saunders Work Phone: [facility] Start: 09-06-2022 End: 09-06-[address] Jocelin Saunders Work Phone: [facility] Start: 09-05-2022 Non-patient / Non-visit Dr. Mio Saunders Work Phone: [facility] Start: 08-30-2022 End: 08-30-2022 Non-patient / Non-visit Dr. Jocelin Saunders Work Phone: [facility] Start: 08-30-2022 End: 08-30-[address] Jocelin Saunders Work Phone: [facility] Work Phone: Start: 08-30-2022 End: 08-30-[address] Jocelin Saunders Work Phone: [facility] Start: 08-23-[address] Darek Saunders Work Phone: [facility] Start: 08-23-2022 End: 08-23-[address] Jocelin Saunders Work Phone: [facility] Start: 08-20-2022 End: 08-20-[address] [facility]unders [facility] Start: 08-16-2022 End: 08-16-2022 Non-patient / Non-visit Dr. Jocelin Saunders Work Phone: [facility] Start: 08-16-2022 End: 08-16-[address] Jocelin Saunders Work Phone: [facility] Work Phone: Start: 08-16-2022 End: 08-16-[address] Jocelin [facility]unders [facility] Start: 08-16-[address] Darek Saunders Work Phone: [facility] Start: 08-16-2022 End: 08-16-[address] Jocelin Saunders Work Phone: [facility] Start: 08-15-2022 End: 08-15-2022 Jocelin Saunders DO Work Phone: [facility] Start: 08-09-2022 End: 08-09-[address] Jocelin Saunders Work Phone: [facility] Start: 08-09-2022 Non-patient / Non-visit Dr. Mio Saunders Work Phone: [facility] Start: 08-09-2022 End: 08-09-[address] Jocelin Saunders Work Phone: [facility] Work Phone: Start: 08-09-2022 End: 08-09-[address] Jocelin Saunders [facility] Start: 08-08-2022 End: 08-08-2022 Non-patient / Non-visit Dr. Jocelin Saunders Work Phone: [facility] Start: 08-08-2022 End: 08-08-[address] Jocelin Saunders Work Phone: [facility] Work Phone: Start: 08-08-2022 End: 08-08-[address] Jocelin Saunders [facility] Start: 08-08-2022 End: 08-08-[address] Jocelin Saunders Work Phone: [facility] Start: 08-06-2022 Non-patient / Non-visit Dr. Mio Saunders Work Phone: [facility] Start: 08-06-2022 End: 08-06-[address] Jocelin Saunders Work Phone: [facility] Work Phone: Start: 08-06-2022 End: 08-06-[address] Jocelin Saunders Work Phone: [facility]-Pulmonary Services/Neurology Start: 07-09-2022 End: 07-09-[address] Jocelin Saunders Work Phone: [facility]-Pulmonary Medicine [facility] Start: 07-04-2022 End: 07-04-[address] Jocelin Saunders Work Phone: [facility] Start: 07-03-2022 End: 07-03-[address] Jocelin Saunders Work Phone: [facility]-Radiology, [facility] Start: 06-28-2022 End: 06-28-2022 Office outpatient visit 25 minutes Jocelin Saunders DO Work Phone: [facility] Start: 06-11-2022 End: 06-11-[address] Jocelin Saunders Work Phone: [facility] Start: 06-06-2022 End: 06-06-2022 Office outpatient visit 15 minutes Jocelin Saunders DO Work Phone: [facility] Start: 06-05-2022 End: 06-05-2022 Emergency department patient visit JADA SHETTY [facility] Start: 06-04-2022 End: 06-04-2022 Emergency department patient visit Dr. Jocelin Saunders Work Phone: [facility]-Emergency Department Start: 06-03-2022 End: 06-03-2022 Emergency department patient visit Dr. Jocelin Saunders Work Phone: [facility]-Emergency Department Start: 04-04-2022 End: 04-04-[address] Jocelin Saunders Work Phone: [facility] Start: 03-22-[address] Darek Saunders Work Phone: [facility] Start: 03-05-2022 End: 03-05-2022 Office outpatient visit 25 minutes Jocelin Puja DO Work Phone: [facility] Start: 03-05-2022 Review Jocelin Fearo n DO Work Phone: [facility] Start: 02-09-2022 End: 02-09-[address] Jocelin Saunders Work Phone: [facility] Start: 10-30-2021 End: 10-30-2021 Office outpatient visit 25 minutes Jocelin Puja DO Work Phone: [facility] Start: 06-26-2021 End: 06-26-2021 Office outpatient visit 25 minutes Jocelin Puja DO Work Phone: [facility] Start: 12-21-2020 End: 12-21-2020 Office outpatient visit 25 minutes Jocelin Puja DO Work Phone: [facility] Start: 12-21-2020 Review Jocelinteddy Cabrerao n DO Work Phone: [facility] Start: 05-02-2020 End: 05-02-2020 Office outpatient visit 15 minutes Jocelin Puja [facility] Start: 05-02-2020 Review Jocelin Puja Compreh ensive Internal Medicine Start: 04-25-2020 End: 04-25-2020 Office outpatient visit 40 minutes Jocelin Puja [facility] Start: 03-02-2020 End: 03-02-2020 Phone Encounter Jocelin Puja [facility] Start: 03-02-2020 End: 03-02-2020 Jocelin Puja DO Work Phone: [facility] Start: 02-22-2020 End: 02-29-2020 Phone Encounter Jocelin Puja [facility] Start: 02-22-2020 Review Jocelin Puja Compreh ensive Internal Medicine Start: 02-22-2020 End: 02-29-2020 Jocelin Puja DO Work Phone: [facility] Start: 02-16-2020 End: 02-17-2020 Phone Encounter Jocelin Saunders [facility] Start: 02-16-2020 [facility] Start: 02-16-2020 End: 02-17-2020 Jocelin Puja DO Work Phone: [facility] Start: 02-11-2020 End: 02-11-2020 Phone Encounter Jocelin Saunders [facility] Start: 02-11-2020 End: 02-11-2020 Jocelin Puja DO Work Phone: [facility] Start: 02-08-2020 End: 02-08-2020 Lab Order Jocelin Cabreraon [facility] Start: 02-08-2020 End: 02-08-2020 Jocelin Puja DO Work Phone: [facility] Start: 02-05-2020 End: 02-05-2020 Lab Order Jocelin Saunders [facility] Start: 02-05-2020 End: 02-05-2020 Jocelin Puja DO Work Phone: [facility] Start: 02-05-2020 End: 02-05-2020 Annotation/Addendum Jocelin Cabreraon [facility] Start: 02-05-2020 End: 02-05-2020 Jocelin Puja DO Work Phone: [facility] Start: 02-05-2020 End: 02-05-2020 Phone Encounter Jocelin Saunders [facility] Start: 02-05-2020 End: 02-05-2020 Jocelin Puja DO Work Phone: [facility] Start: 02-05-2020 End: 02-05-2020 Phone Encounter Jocelin Puja [facility] Start: 02-05-2020 End: 02-05-2020 Jocelin Puja DO Work Phone: [facility] Start: 02-04-2020 End: 02-04-2020 Phone Encounter Jocelin Cabreraon [facility] Start: 02-04-2020 End: 02-04-2020 Jocelin Puja DO Work Phone: [facility] Start: 02-01-2020 End: 02-01-2020 Office outpatient visit 15 minutes Jocelin Saunders [facility] Start: 01-29-2020 End: 01-29-2020 Annotation/Addendum Jocelin Saunders [facility] Start: 01-29-2020 End: 01-29-2020 Jocelin Saunders DO Work Phone: [facility] Start: 01-11-2020 End: 01-11-2020 Office outpatient visit 15 minutes Jocelin Saunders [facility] Start: 12-24-2019 End: 12-24-2019 Office outpatient visit 25 minutes Jocelin Saunders [facility] Start: 04-13-2019 End: 04-13-2019 Office outpatient visit 15 minutes Jocelin Saunders [facility] Start: 01-12-2019 End: 01-12-2019 Office outpatient visit 10 minutes Jocelin Saunders [facility] Start: 12-22-2018 End: 12-22-2018 Office outpatient visit 10 minutes Jocelin Saunders [facility] Start: 12-08-2018 End: 12-08-2018 Office outpatient visit 10 minutes Jocelin Saunders [facility] Start: 12-01-2018 End: 12-04-2018 Office outpatient visit 25 minutes Jocelin Saunders [facility] Start: 12-01-2018 Review Jocelin Saunders Compreh ensive Internal Medicine Start: 10-31-2018 End: 10-31-2018 Office outpatient visit 15 minutes Jocelin Saunders [facility] Start: 10-31-2018 Review Jocelin Saunders Compreh ensive Internal Medicine Start: 10-28-2018 End: 10-28-2018 Office outpatient visit 25 minutes Jocelin Saunders [facility] Start: 09-11-2018 End: 09-11-2018 Office outpatient visit 25 minutes Jocelin Saunders [facility] Start: 09-11-2018 End: 09-11-2018 Preoperative state Jocelin Saunders DO Work Phone: [facility] Start: 09-03-[address] Samanta Saunders Work Phone: [facility] Start: 09-02-2018 End: 09-02-2018 Annotation/Addendum Jocelin Saunders [facility] Start: 09-02-2018 End: 09-02-2018 Jocelin Saunders DO Work Phone: [facility] Start: 08-26-2018 End: 08-26-2018 Annotation/Addendum Jocelin Saunders [facility] Start: 08-26-2018 End: 08-26-2018 Jocelin Saunders DO Work Phone: [facility] Start: 08-26-2018 End: 08-26-2018 Office outpatient new 60 minutes Jocelin Saunders [facility] Start: 08-02-2018 Patient encounter procedure JANNETH Wisdom (FILTER SCREEN CLEANER-C) [facility] Patient encounter procedure Víctor Barton DIRECTOR OF PSYCHIATRY [facility]; [facility] Work Phone: Preoperative state Jocelin Lopes [facility] Internal Medicine Work Phone: Comment on above: dr thompson Preoperative state Jocelin Saunders [facility] Internal Medicine Work Phone: Comment on above: dr thompson Preoperative state Jocelin Puja Caie [facility] Internal Medicine Work Phone: Comment on above: dr thompson Preoperative state Jocelin Puja Compre [facility] Internal Medicine Work Phone: Comment on above: dr thompson Preoperative state Jocelin Saunders Compre [facility] Internal Medicine Work Phone: Comment on above: dr thompson Preoperative state [facility] Internal [facility] Work Phone: Comment on above: dr thompson End: 04-13-2019 Preoperative state Talia Nguyen RN [facility] Account Manager al [facility]; [facility] Work Phone: Comment on above: dr thompson Procedures Date Procedure Procedure Detail Performing Clinician Start: 01-21-[address] Darek Saunders DO Work Phone: Start: 01-21-[address] Jocelin Saunders DO Work Phone: Comment on above: Test Ordered: [id number] BCR-ABL1, CML/ALL, PCR, [id number] (b2a2) transcript <0.0032 % % [facility] Reference Range: .e14a2 (b3a2) transcript <0.0032 % % [facility] Reference Range: .e1a2 transcript <0.0032 % % [facility] Reference Range: .Interpretation: Negative Reference Range: .NEGATIVE for the BCR-ABL1 e1a2 (p190), e13a2 (b2a2, p210)and e14a2 (b3a2, p210) fusion transcripts. These results donot rule out the presence of rare BCR-ABL1 transcripts notdetected by this assay.Director Review Comment Reference Range: .Technical Component performed at [facility] RTPProfessional Component performed by:Dayan Davila, PhD, FACMGDirector, Molecular OncologyFarren Memorial Hospital [id number], [address] [facility] [phone] Comment [facility] Reference Range: .This assay can detect three different types of BCR-DUA4rawpex transcripts associated with CML, ALL, and AML: e13a2(previously b2a2) and e14a2 (previously b3a2) (majorbreakpoint, p210), as well as e1a2 (minor breakpoint,p190). The e13a2 and e14a2 transcript values are titratedto the current International Scale (IS). The standardizedbaseline is 100% BCR-ABL1 (IS) and major molecularresponse (MMR) is equivalent to 0.1% BCR-ABL1 (IS)corresponding to a 3-log reduction. Results should becorrelated with appropriate clinical and laboratoryinformation as indicated.Methodology Comment TG Reference Range: .Total RNA is isolated from the sample and subject to a real-time, reverse transcriptase polymerase chain reaction (RT-PCR). The PCR primers and probes are specific for [id number], e14a2 and e1a2 fusion transcripts. The [id number] is amplified as the control for cDNA quantityand quality. Serial dilutions of a validated positivecontrol RNA with known t(9;22) BCR-ABL1 are used asreference for quantification of BCR-ABL1 relative toABL1. The numeric BCR-ABL1 level is reported as % BCR-ABL1/ABL1 and the detection sensitivity is 4.5 log belowthe standard baseline (<0.0032%).This test was developed and its performance characteristicsdetermined by [facility]. It has not been cleared or approvedby the Food and Drug Administration.References Comment TG Reference Range: .1) Allyson Elaine. Molecular monitoring of chronicmyeloid leukemia. Semin Hematol. 2003 Apr; 40(2 Suppl2):62-68.2) NCCN Clinical Practice Guidelines in Oncology ChronicMyeloid Leukemia Version 1.2024 - February 26) Dileep Hoffman P, Elina P, et al. Establishmentof the of the first World Health OrganizationInternational Genetic Reference Panel for quantitationof BCR-ABL mRNA. Blood. 2010 25; 116(22):q303-084.Performed at: [facility] [id number] [facility], [place], [place] [id number] Director: Sherri Davey [facility], Phone: [phone] at: - [facility] [id number], [facility], [place] [id number] Director: Sherri Davey [facility], Phone: [phone] at: - [facility] [address] [id number] Director: Michael Ragsdale PhD, Phone: [phone] Start: 01-21-2025 [address] inorganic phosphate measurement Dr[address] Jocelin Saunders DO Work Phone: Start: 10-22-[address] Darek Saunders DO Work Phone: Start: 07-28-2024 CBC AND ELECTRONIC DIFF Shinal D Maynard DIRECTOR HOSPICE OPERATIONS-[employer] Work Phone: Start: 07-28-2024 Complete blood count with white cell differential, automated Shinal D Maynard DIRECTOR HOSPICE OPERATIONS-[employer] Work Phone: Start: 07-28-2024 Comprehensive metabolic panel Shinal D P atel DIRECTOR HOSPICE OPERATIONS-BIOMEDICAL [employer] Work Phone: Start: 07-20-2024 Measurement of renal function Dr. Saturnino Saunders DO Work Phone: Comment on above: GFR Calc Start: 10-21-20[address] Ultrasound elast[address] of liver Dr[address] Jocelin Saunders Work Phone: Start: 07-30-2023 Radex spine lumbosacral 2/3 views Katelyn Lawton MD Work Phone: Start: 07-30-2023 Bcr/abl1 major breakpnt qualitative/quantitative Joi Bashir PAC Work Phone: Start: 07-30-2023 CBC AND ELECTRONIC DIFF Joibahman Camejo PAC Work Phone: Start: 07-30-2023 Complete blood count with white cell differential, automated Joimilton Camejo PAC Work Phone: Start: 07-30-2023 Comprehensive metabolic panel Joibahman Camejo PAC Work Phone: Start: 07-30-2023 RNA EXTRACTION Joibahman Camejo PAC Work Phone: Start: 06-05-[address] Jocelin Saunders Work Phone: Start: 04-22-[address] Jocelin Saunders DO Work Phone: Start: 02-06-2023 End: 02-06-2023 Procedure Note: See Note; NOTES: [facility] [address] [address] OFFICE VISIT Date of Service: 02/06/23 1113 MR#: [id number] Acct: [id number] Name: FREDERIC OVALLES Rep #: [id number] : 1960 From: Sawyer Delgado MD Age/Sex: 62/M [place] [facility] [place]: Signed HPI Subjective Date of Service 02/06/23 Chief Complaint Chronic myeloid leukemia on treatment History of Present Illness 62-year-old gentleman with no known chronic inflammatory or infectious diseases referred in consultation because of a persistent leukocytosis. March 2020 peripheral blood BCR ABL by FISH was positive consistent with chronic myeloid leukemia. Bone marrow aspirate and biopsy April 13, 2020: BONE MARROW DIAGNOSIS Bone marrow biopsy, clot and aspiration (specimens A-C): Hypercellular bone marrow. No stainable iron identified. No evidence of lymphoproliferative disorder. See comment. COMMENT Flow cytometry analysis reveals no increased blasts population. However, myeloid elements exhibit aberrant expression of CD56 and show left shift with down-regulation of CD10 and CD16. The findings are compatible with an underlying primary myeloid neoplasm. The flow cytometry analysis report from [facility] [employer] [facility] is reviewable in the patient???s EMR. BONE MARROW STUDY Slides are reviewed. CBC DATE: 04/13/20 WBC 22.5; RBC 5.33; HGB 15.8; HCT 48.5; MCV 91.0; RDW 48.2; PLTS 206,000 SEGS 54%; LYMPHS 23%; MONOS 11%; EOS 2%; BASOS 0% PERIPHERAL SMEAR: Submitted. RBC: Normochromic, normomorphic WBC: Neutrophilic leukocytosis with slight left shift. PLTS: Normomorphic BONE MARROW ASPIRATE DIFFERENTIAL: 200 cell count. Blasts % (normal 0-2): 2 Promyelocytes % (normal 1-5): 5 Myelocytes and metamyelocytes % (normal 17-41): 38 Bands and Segs % (normal 15-32): 26 Eos % (normal 1-6): 2 Basos % (normal 0-1): 0 Monocytes % (normal 0-4): 2 Erythroid Precursors % (normal 17-35): 18 Lymphocytes % (normal 7-13): 7 Plasma Cells % (normal 0-2): 0 ASPIRATE FINDINGS: Site: Not specified Paucispicular Cellular M/E ratio: Within normal limits (Normal 1.5 - 4.0) Megakaryocytes: Adequate Erythropoiesis: Progressive Granulopoiesis: Normoblastic CORE BIOPSY FINDINGS: Site: Not specified Adequacy: No bone present Cellularity %: Not applicable M/E ratio: Not applicable Blood Only rare marrow cell noted. ASPIRATE CLOT FINDINGS: Site: Not specified Marrow Particles: Many Cellularity %: 80% M/E ratio: Within normal limits Megakaryocytes: Adequate Granuloma(s): 0 Lymphoid aggregate(s): 0 Atypical infiltrate(s): 0 SPECIAL STAINS (with matched controls): Iron: Stainable iron not present Reticulin: Within normal limits PAS: Highlights myeloid elements and megakaryocytes. ADDENDUM FISH BCR/ABL1 REPORT FROM [facility] INTERPRETATION: BCR/ABL gene rearrangement is detected. RESULTS: BCR/ABL1 Normal Nuclei Positive Nuclei with Dual Fusion 3.33% 96.67% CYTOGENETICS REPORT FROM [facility] INTERPRETATION: Abnormal male karyotype was observed in twenty metaphases analyzed. 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 Bosutinib August 10, 2022-ongoing MMR (January 2023) [facility] Medical History Atherosclerosis of coronary artery of [place] heart without angina pectoris Encounter for screening for malignant neoplasm of lung in current smoker with 30 pack year history or greater Essential (primary) hypertension Fatigue Fracture of great toe, right, open Hiatal hernia with GERD History of back problems History of ST elevation myocardial infarction (STEMI) (01/20/17) Hyperlipidemia Leukocytosis Low back pain Near syncope Nicotine dependence Obesity (BMI 30.0-34.9) 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) 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, right Pneumonia Tobacco use disorder, continuous Unspecified injury of right foot, sequela Surgical History History of bilateral inguinal hernia repair (08/2018) History of bone marrow biopsy (04/13/20) History of coronary artery stent placement (01/20/17) Status post laparoscopic Migue fundoplication (10/15/18) Family History Father Colon cancer Diabetes Heart disease Hypertension CAD (coronary artery disease) Sister Breast cancer Mother CAD (coronary artery disease) Hypertension Heart disease Social History household members: spouse Smoking Status: Current every day smoker tobacco type: cigarettes Tobacco: How many years used: 40 Electronic Cigarette Use: not used second hand exposure: No quit status: considering quitting counseling given: provider counseling alcohol intake: current alcohol intake frequency: a few times a week Alcohol type: beer substance use type: does not use well-balanced diet: about half the time uyen/latter-day: Latter Day seatbelt use: always do you feel safe at home: Yes ROS Constitutional Constitutional: Reports systems reviewed and no addt'l complaints, except as documented; Denies anorexia, fatigue, fever(s), night sweats or weight loss Eyes Eyes: Reports systems reviewed and no addt'l complaints, except as documented ENT HEENT: Reports systems reviewed and no addt'l complaints, except as documented; Denies dysphagia, headache(s), mouth lesions or mucositis Cardiovascular Cardiovascular: Reports systems reviewed and no addt'l complaints, except as documented; Denies chest pain with activity, edema or palpitations Respiratory/Chest Respiratory/Chest: Reports systems reviewed and no addt'l complaints, except as documented; Denies cough or dyspnea Gastrointestinal Gastrointestinal: Reports systems reviewed and no addt'l complaints, except as documented and other Details: Diarrhea very infrequent, uses Imodium once every few days ; Denies change in bowel habits, diarrhea or nausea Genitourinary Genitourinary: Reports systems reviewed and no addt'l complaints, except as documented; Denies dysuria Musculoskeletal Musculoskeletal: Reports systems reviewed and no addt'l complaints, except as documented, back pain and other Details: Chronic back pain unchanged Integumentary Integumentary: Reports systems reviewed and no addt'l complaints, except as documented and dry skin Neurologic Neurologic: Reports systems reviewed and no addt'l complaints, except as documented; Denies headache(s) or weakness Psychiatric Psychiatric: Reports systems reviewed and no addt'l complaints, except as documented Endocrine Endocrinology: Reports systems reviewed and no addt'l complaints, except as documented Hematologic/Lymphatic Hematologic/Lymphatic: Reports systems reviewed and no addt'l complaints, except as documented; Denies easy bleeding or easy bruising Allergic/Immunologic Allergic/Immunologic: Reports systems reviewed and no addt'l complaints, except as documented Intake Vital Signs 12/12/22 13:37 02/06/23 11:13 Height 6 ft 6 ft Weight: 107.728 kg 108.635 kg BMI 32.2 32.4 BP 120/77 139/79 H Blood Pressure Location Lt brachial Lt brachial Position Sitting Sitting Respiration 18 18 Pulse 66 62 Pulse Source Monitor Monitor Temp 98.8 F 98.4 F Temperature Source Temporal Artery Temporal Artery Pulse Oximetry (%) 96 96 Oxygen Delivery Method room air room air Intake Accompanied by: Self Is patient in pain?: No Allergies No Known Allergies Allergy (Verified 02/06/23 11:14) Medications aspirin 81 mg tablet,delayed release 81 mg PO DAILY 09/02/18 [History Confirmed 02/06/23] carvedilol 6.25 mg tablet 6.25 mg PO BID 09/02/18 [History Confirmed 02/06/23] cholecalciferol (vitamin D3) 25 mcg (1,000 unit) capsule 1,000 unit PO DAILY 09/02/18 [History Confirmed 02/06/23] ramipril 2.5 mg capsule 2.5 mg PO DAILY 09/02/18 [History Confirmed 02/06/23] atorvastatin 80 mg tablet 80 mg PO QHS 12/15/19 [History Confirmed 02/06/23] omega 3-dha 60 mg-epa 90 mg-fish oil 500 mg capsule, delayed release 1 cap PO DAILY 05/12/20 [History Confirmed 02/06/23] vitamin E 200 unit capsule 200 unit PO DAILY 08/25/20 [History Confirmed 02/06/23] ondansetron HCl 8 mg tablet 8 mg PO Q12H PRN PRN Nausea And Vomiting #60 tabs 08/08/22 [Rx Confirmed 02/06/23] bosutinib 100 mg tablet 200 mg PO DAILY 08/16/22 [History Confirmed 02/06/23] ascorbic acid (vitamin C) 500 mg capsule,extended release 500 mg PO Q12H 09/06/22 [History Confirmed 02/06/23] fluticasone fur. 100 mcg-umeclid 62.5 mcg-vilant 25 mcg inhalat.powder (Trelegy Ellipta) 1 inh inhalation Q24H #60 ea 09/18/22 [Rx Confirmed 02/06/23] sulfamethoxazole 800 mg-trimethoprim 160 mg tablet (Bactrim DS) 1 tab PO .COMPLEX #36 tabs 12/12/22 [Rx Confirmed 02/06/23] Central Venous Access Central Venous Access: No Reviewed in EMR, summarized below Coding Level of Care Code Off vis,est,level 4 Exam Problem Focused Diagnoses Chronic myeloid leukemia C92.10 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, right J90 Assessment and Plan Assessment and Plan (1) Chronic myeloid leukemia: Status: Chronic (2) 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, right: Status: Chronic Plan 62-year-old male who presented with with a mature neutrophilic leukocytosis first noted January 2020, progressively worsening. He has no known chronic inflammatory or infectious diseases. BCR ABL profile with FISH is positive consistent with chronic myeloid leukemia. No palpably enlarged spleen (within limitation of body size and habitus) at diagnosis,13.4 cm by ultrasound. Bone marrow aspirate and biopsy March 2020 confirmed the diagnosis with a q BCR ABL positivity of 96.67% ELTS score 1.4177 (low risk). * Started TKI therapy with dasatinib April 28, 2020, a decline in WBC/ANC is consistent with a hematologic response within the first month of treatment. . Mild elevation of liver enzymes less than 2 fold resolved and an increasing leukopenia with preserved neutrophil count noted at 4 weeks of treatment also resolved with continued standard dosing. He showed a major molecular response (MMR) to treatment , however October - May 2022 he showed an upward trend in q. BCR ABL. Therapy was switched to bosutinib as of July 2022 (concern for resistance though compliance was also questioned and for recurrent pleural effusion). Achieved major molecular response again by January 2023. Date qBCR-ABL (e13a2/b2a2) 03/30/2020 159.1086 08/10/2020 0.3342 11/10/2020 0.017 02/08/2021 0.031 05/09/2021 0.0626 08/09/2021 0.0559 11/08/2021 0.2603 12/12/2021 NEG 03/22/2022 0.056 06/20/2022 0.1436 11/01/2022 0.1829 01/23/2023 <0.0032 (Neg) Comorbid conditions: smoker with over 30 pack years cigarettes (started at age 18 averaging 1/2 to 1 pack of cigarettes daily), hypertension, coronary artery disease, cerebrovascular disease and dyslipidemia. Plan: #1-Continue Bosutinib . #2-q. BCR/ABL every 3 months. #3 - He is also being followed up in pulmonary clinic; no evidence for recurrent pleural effusion and next lung cancer screening to schedule May 2023. #5-EKG follow-up QTC September, normal. #6 Continue Bactrim for PCP prophylaxis. Patient was seen , impression and plan discussed. Sawyer Delgado MD Transit Driver, [facility] Divisions of Medical Oncology Hematology Department of Internal Medicine [place] [phone] This note was generated using a voice recognition system software. Although it was reviewed by the author prior to finalization, it may still contain incorrect words, spelling, and punctuation that were not noted when reviewing prior to saving. If a clinically significant typo or inaccurately typed phrase is noted, please notify the author. 02/06/23 1138 <Electronically signed by Sawyer Delgado MD> Date Sawyer Delgado MD Cosigner Signature: Date (if applicable) CC: Jocelin Saunders DO Work Phone: Start: 01-23-2023 Plain chest X-ray Dr. Jocelin Saunders Work Phone: Start: 01-23-2023 Radiologic exam chest [address] Saturnino Saunders DO Work Phone: Start: 01-23-2023 End: 01-24-2023 Procedure Note: See Note; NOTES: [facility] Services [address] [place] [id number] Chest PA and Lateral MR#: [id number] Acct: [id number] Name: FREDERIC OVALLES Rep #: [id number] : 1960 M 62 From: Joann Gutierrez MD PCP: Dr. Jocelin Saunders, DO Status: REG RCR Study: Chest PA and Lateral Date of Exam: 01/23/23 Exam# [id number] Ordering Dr: Sawyer Delgado MD EXAM: XR CHEST, 2 VIEWS CLINICAL INDICATION: F/U RIGHT EFFUSION TECHNIQUE: Frontal and lateral views of the chest. COMPARISON: October 18, 2022 FINDINGS: LUNGS AND PLEURAL SPACES: Stable appearance of blunting of the right lateral costophrenic angle and obscured visualization of the right hemidiaphragm compared to October 18, 2022, mildly improved compared to August 08, 2022. Mild chronic lung changes, no focal infiltrate or effusion. No pneumothorax. HEART: Unremarkable. Cardiac silhouette not enlarged. MEDIASTINUM: Central airways and mediastinal contour are unremarkable. BONES/JOINTS: Unremarkable. SOFT TISSUES: Unremarkable. RAD/Chest PA and Lateral IMPRESSION: Stable appearance suggesting right pleural effusion and/or thickening and minimal associated atelectasis. Electronically Signed: Joann Gutierrez MD at 5:59 EDT , CC: Dr. Jocelin Saunders, DO; Dr. Sawyer Delgado MD Wool Supplier: Signed Sawyer Dlegado Work Phone: Start: 12-12-2022 End: 12-12-2022 Procedure Note: See Note; NOTES: [facility] [address] [place] [id number] OFFICE VISIT Date of Service: 12/12/22 1331 MR#: [id number] Acct: [id number] Name: FREDERIC OVALLES Rep #: [id number] : 1960 From: Sawyer Delgado MD Age/Sex: 62/M [place] [facility] [place] Status: Signed HPI Subjective Date of Service 12/12/22 Chief Complaint Chronic myeloid leukemia on treatment History of Present Illness 62-year-old gentleman with no known chronic inflammatory or infectious diseases referred in consultation because of a persistent leukocytosis. March 2020 peripheral blood BCR ABL by FISH was positive consistent with chronic myeloid leukemia. Bone marrow aspirate and biopsy April 13, 2020: BONE MARROW DIAGNOSIS Bone marrow biopsy, clot and aspiration (specimens A-C): Hypercellular bone marrow. No stainable iron identified. No evidence of lymphoproliferative disorder. See comment. COMMENT Flow cytometry analysis reveals no increased blasts population. However, myeloid elements exhibit aberrant expression of CD56 and show left shift with down-regulation of CD10 and CD16. The findings are compatible with an underlying primary myeloid neoplasm. The flow cytometry analysis report from [facility] is reviewable in the patient???s EMR. BONE MARROW STUDY Slides are reviewed. CBC DATE: 04/13/20 WBC 22.5; RBC 5.33; HGB 15.8; HCT 48.5; MCV 91.0; RDW 48.2; PLTS 206,000 SEGS 54%; LYMPHS 23%; MONOS 11%; EOS 2%; BASOS 0% PERIPHERAL SMEAR: Submitted. RBC: Normochromic, normomorphic WBC: Neutrophilic leukocytosis with slight left shift. PLTS: Normomorphic BONE MARROW ASPIRATE DIFFERENTIAL: 200 cell count. Blasts % (normal 0-2): 2 Promyelocytes % (normal 1-5): 5 Myelocytes and metamyelocytes % (normal 17-41): 38 Bands and Segs % (normal 15-32): 26 Eos % (normal 1-6): 2 Basos % (normal 0-1): 0 Monocytes % (normal 0-4): 2 Erythroid Precursors % (normal 17-35): 18 Lymphocytes % (normal 7-13): 7 Plasma Cells % (normal 0-2): 0 ASPIRATE FINDINGS: Site: Not specified Paucispicular Cellular M/E ratio: Within normal limits (Normal 1.5 - 4.0) Megakaryocytes: Adequate Erythropoiesis: Progressive Granulopoiesis: Normoblastic CORE BIOPSY FINDINGS: Site: Not specified Adequacy: No bone present Cellularity %: Not applicable M/E ratio: Not applicable Blood Only rare marrow cell noted. ASPIRATE CLOT FINDINGS: Site: Not specified Marrow Particles: Many Cellularity %: 80% M/E ratio: Within normal limits Megakaryocytes: Adequate Granuloma(s): 0 Lymphoid aggregate(s): 0 Atypical infiltrate(s): 0 SPECIAL STAINS (with matched controls): Iron: Stainable iron not present Reticulin: Within normal limits PAS: Highlights myeloid elements and megakaryocytes. ADDENDUM FISH BCR/ABL1 REPORT FROM [facility] INTERPRETATION: BCR/ABL gene rearrangement is detected. RESULTS: BCR/ABL1 Normal Nuclei Positive Nuclei with Dual Fusion 3.33% 96.67% CYTOGENETICS REPORT FROM [facility] INTERPRETATION: Abnormal male karyotype was observed in twenty metaphases analyzed. 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 Bosutinib August 10, 2022-. [facility] Medical History Atherosclerosis of coronary artery of [place] heart without angina pectoris Encounter for screening for malignant neoplasm of lung in current smoker with 30 pack year history or greater Essential (primary) hypertension Fatigue Fracture of great toe, right, open Hiatal hernia with GERD History of back problems History of ST elevation myocardial infarction (STEMI) (01/20/17) Hyperlipidemia Leukocytosis Low back pain Near syncope Nicotine dependence Obesity (BMI 30.0-34.9) 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) 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, right Pneumonia Tobacco use disorder, continuous Unspecified injury of right foot, sequela Surgical History History of bilateral inguinal hernia repair (08/2018) History of bone marrow biopsy (04/13/20) History of coronary artery stent placement (01/20/17) Status post laparoscopic Migue fundoplication (10/15/18) Family History Father Colon cancer Diabetes Heart disease Hypertension CAD (coronary artery disease) Sister Breast cancer Mother CAD (coronary artery disease) Hypertension Heart disease Social History household members: spouse Smoking Status: Current every day smoker tobacco type: cigarettes Tobacco: How many years used: 40 Electronic Cigarette Use: not used second hand exposure: No quit status: considering quitting counseling given: provider counseling alcohol intake: current alcohol intake frequency: a few times a week Alcohol type: beer substance use type: does not use well-balanced diet: about half the time uyen/latter-day: Latter Day seatbelt use: always do you feel safe at home: Yes ROS Constitutional Constitutional: Reports systems reviewed and no addt'l complaints, except as documented; Denies anorexia, fatigue, fever(s), night sweats or weight loss Eyes Eyes: Reports systems reviewed and no addt'l complaints, except as documented ENT HEENT: Reports systems reviewed and no addt'l complaints, except as documented; Denies dysphagia, headache(s), mouth lesions or mucositis Cardiovascular Cardiovascular: Reports systems reviewed and no addt'l complaints, except as documented; Denies chest pain with activity, edema or palpitations Respiratory/Chest Respiratory/Chest: Reports systems reviewed and no addt'l complaints, except as documented and dyspnea on exertion; Denies cough Gastrointestinal Gastrointestinal: Reports systems reviewed and no addt'l complaints, except as documented and other Details: Diarrhea very infrequent, uses Imodium on average once every 2 weeks or so, may be diet related ; Denies change in bowel habits, diarrhea or nausea Genitourinary Genitourinary: Reports systems reviewed and no addt'l complaints, except as documented; Denies dysuria Musculoskeletal Musculoskeletal: Reports systems reviewed and no addt'l complaints, except as documented, back pain and other Details: Chronic back pain unchanged Integumentary Integumentary: Reports systems reviewed and no addt'l complaints, except as documented and dry skin Neurologic Neurologic: Reports systems reviewed and no addt'l complaints, except as documented; Denies headache(s) or weakness Psychiatric Psychiatric: Reports systems reviewed and no addt'l complaints, except as documented and other Details: Dreams, no nightmares Endocrine Endocrinology: Reports systems reviewed and no addt'l complaints, except as documented Hematologic/Lymphatic Hematologic/Lymphatic: Reports systems reviewed and no addt'l complaints, except as documented; Denies easy bleeding or easy bruising Allergic/Immunologic Allergic/Immunologic: Reports systems reviewed and no addt'l complaints, except as documented Intake Vital Signs 12/12/22 13:33 12/12/22 13:37 Height 6 ft 6 ft Weight: 107.728 kg BMI 32.2 BP 120/77 Blood Pressure Location Lt brachial Position Sitting Respiration 18 Pulse 66 Pulse Source Monitor Temp 98.8 F Temperature Source Temporal Artery Pulse Oximetry (%) 96 Oxygen Delivery Method room air Intake Accompanied by: Self Is patient in pain?: No Allergies No Known Allergies Allergy (Verified 12/12/22 13:34) Medications aspirin 81 mg tablet,delayed release 81 mg PO DAILY 09/02/18 [History Confirmed 12/12/22] carvedilol 6.25 mg tablet 6.25 mg PO BID 09/02/18 [History Confirmed 12/12/22] cholecalciferol (vitamin D3) 25 mcg (1,000 unit) capsule 1,000 unit PO DAILY 09/02/18 [History Confirmed 12/12/22] ramipril 2.5 mg capsule 2.5 mg PO DAILY 09/02/18 [History Confirmed 12/12/22] atorvastatin 80 mg tablet 80 mg PO QHS 12/15/19 [History Confirmed 12/12/22] omega 3-dha 60 mg-epa 90 mg-fish oil 500 mg capsule, delayed release 1 cap PO DAILY 05/12/20 [History Confirmed 12/12/22] vitamin E 200 unit capsule 200 unit PO DAILY 08/25/20 [History Confirmed 12/12/22] ondansetron HCl 8 mg tablet 8 mg PO Q12H PRN PRN Nausea And Vomiting #60 tabs 08/08/22 [Rx Confirmed 12/12/22] bosutinib 100 mg tablet 200 mg PO DAILY 08/16/22 [History Confirmed 12/12/22] ascorbic acid (vitamin C) 500 mg capsule,extended release 500 mg PO Q12H 09/06/22 [History Confirmed 12/12/22] fluticasone fur. 100 mcg-umeclid 62.5 mcg-vilant 25 mcg inhalat.powder (Trelegy Ellipta) 1 inh inhalation Q24H #60 ea 09/18/22 [Rx Confirmed 12/12/22] sulfamethoxazole 800 mg-trimethoprim 160 mg tablet (Bactrim DS) 1 tab PO .COMPLEX #36 tabs 12/12/22 [Rx] Central Venous Access Central Venous Access: No CBC, CMP December 12, 2022 reviewed in EMR. BCR ABL quantitative reviewed scanned report, summary under impression Exam Physical Exam Const alert and oriented x3 Constitutional Narrative: ECOG 0-1 General Appearance: cooperative Nutritional Appearance: overweight HEENT normocephalic Head and Scalp: normal to inspection Mouth: oral and palatal mucosa normal Eyes conjunctivae normal and no scleral icterus General Eye: normal appearance of both eyes Neck no lymphadenopathy and no JVD Lymph Lymphatic: no lymphadenopathy noted Chest Chest: symmetrical chest wall rise Resp normal respiratory effort and clear to auscultation bilaterally Cardio regular rate, regular rhythm, S1 normal heart sound, S2 normal heart sound and no murmurs Jugular Venous Distention: Negative for JVD GI soft to palpation, non-tender and non-distended; Negative for hepatosplenomegaly no CVA tenderness Back/Spine no thoracic nor lumbar tenderness Extremity no clubbing, cyanosis or edema Skin no rashes or lesions noted Neuro oriented x3, CN's II-XII intact bilaterally, moves all extremities and no focal motor deficits Coordination / Balance: [id number] test normal Speech: speech normal Gait (Neuro): normal gait Psych mental status grossly normal Coding Level of Care Code Off vis,est,level 4 Exam Problem Focused Diagnoses Chronic myeloid leukemia C92.10 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, right J90 Assessment and Plan Assessment and Plan (1) Chronic myeloid leukemia: Status: Chronic (2) 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, right: Status: Chronic Plan 62-year-old male who presented with with a mature neutrophilic leukocytosis first noted January 2020, progressively worsening. He has no known chronic inflammatory or infectious diseases. BCR ABL profile with FISH is positive consistent with chronic myeloid leukemia. No palpably enlarged spleen (within limitation of body size and habitus) at diagnosis,13.4 cm by ultrasound. Bone marrow aspirate and biopsy March 2020 confirmed the diagnosis with a q BCR ABL positivity of 96.67% ELTS score 1.4177 (low risk). * Started TKI therapy with dasatinib April 28, 2020, a decline in WBC/ANC is consistent with a hematologic response within the first month of treatment. . Mild elevation of liver enzymes less than 2 fold resolved and an increasing leukopenia with preserved neutrophil count noted at 4 weeks of treatment also resolved with continued standard dosing. He showed a major molecular response (MMR) to treatment , however October 2021 he showed an upward trend in q. BCR ABL but then declined to </= 0.1 (optimal) to rise again in May 2022. Date qBCR-ABL (e13a2/b2a2) 03/30/2020 159.1086 08/10/2020 0.3342 11/10/2020 0.017 02/08/2021 0.031 05/09/2021 0.0626 08/09/2021 0.0559 11/08/2021 0.2603 12/12/2021 NEG 03/22/2022 0.056 06/20/2022 0.1436 11/01/2022 0.1829 * In May [address] of the chest showed no abnormalities. In May 2022 he was noted to have developed bilateral pleural effusions, suspected Dasatinib side effect. He improved after the pleural tap. * June 2022 he was evaluated at [facility] by Dr. Lawton for possible evolving Dasatinib resistance and evaluation was negative. Because of the recurrence of pleural effusions recommendation was to switch from Dasatinib to Bosutinib which he started August 10, 2022. Comorbid conditions: smoker with over 30 pack years cigarettes (started at age 18 averaging 1/2 to 1 pack of cigarettes daily), hypertension, coronary artery disease, cerebrovascular disease and dyslipidemia. Plan: #1-Continue Bosutinib with monitor for toxicity on bi- weekly basis in the 2nd month of therapy. #2-q. BCR/ABL every 3 months. Next to schedule will be in January 2023 #3 - He is also being followed up in pulmonary clinic; for the pleural effusion and lung cancer screening. Obtain chest x-ray January 2023. #5-EKG follow-up QTC September, normal. #6 Continue Bactrim for PCP prophylaxis. Patient was seen , impression and plan discussed. Sawyer Delgado MD Transit Driver, [facility] Divisions of Medical Oncology Hematology Department of Internal Medicine [place] [phone] This note was generated using a voice recognition system software. Although it was reviewed by the author prior to finalization, it may still contain incorrect words, spelling, and punctuation that were not noted when reviewing prior to saving. If a clinically significant typo or inaccurately typed phrase is noted, please notify the author. 12/12/22 8327 <Electronically signed by Sawyer Delgado MD> Date Sawyer Delgado MD Cosigner Signature: Date (if applicable) CC: Dr. Jocelin Saunders, DO Jocelin Saunders DO Work Phone: Start: 11-15-2022 Bacteria identified in Urine by Culture Dr. Jocelin Saunders DO Work Phone: Start: 11-15-[address] Jocelin Saunders Work Phone: Start: 11-15-2022 X-ray of lumbosacral spine Dr. Jocelin Saunders Work Phone: Start: 11-15-2022 End: 11-15-2022 Procedure Note: See Note; NOTES: [facility] Services [address] [place] [address] L/S Spine Min 4 Views MR#: [id number] Acct: [id number] Name: FREDERIC OVALLES Rep #: [id number] : 1960 M 62 From: Jerome Byrd MD PCP: Dr. Jocelin Saunders DO Status: REG RCR Study: L/S Spine Min 4 Views Date of Exam: 11/15/22 Exam# [id number] Ordering Dr: Savi Rodriguez NP FERMENTER HELPER -C INDICATION: low back pain acute EXAMINATION/TECHNIQUE: X-RAY - XR Spine Lumbar Min 4 Views COMPARISON: None. FINDINGS: VERTEBRAE: Moderate diffuse anterior osteophyte formation. Moderate endplate sclerosis L2-3. Bilateral facet arthropathy L5-S1. DISCS: Severe loss of disc space height L2-3 moderate remainder of lumbar spine. INCLUDED ABDOMEN: Included bowel gas pattern is non-obstructive. RAD/L/S Spine Min 4 Views IMPRESSION: Degenerative changes as above. Electronically Signed: Jerome Byrd MD, SHIRA at 19:15 EDT Reading Location ID and State: [facility] / [place] Tel , Service support , CC: FERMENTER HELPER-C Savi Rodriguez; Dr. Jocelin Saunders DO Wool Supplier: Signed Jocelin Saunders DO Work Phone: Start: 11-15-2022 Plain x-ray of pelvis and lower extremity Dr. Jocelin Saunders Work Phone: Start: 11-15-2022 End: 11-15-2022 Procedure Note: See Note; NOTES: [facility] Services [address] [place] [address] HIP, UNI W/ Pelvis 2-3 Views MR#: [id number] Acct: [id number] Name: FREDERIC OVALLES Rep #: [id number] : 1960 M 62 From: Jerome Byrd MD PCP: Dr. Jocelin Saunders, Status: REG RCR Study: HIP, UNI W/ Pelvis 2-3 Views Date of Exam: Exam# [id number] Ordering Dr: Savi Rodriguez NP FERMENTER HELPER -C INDICATION: low back and left hip pain acute EXAMINATION/TECHNIQUE: X-RAY - XR Hip Unilateral with Pelvis when performed; 2-3 Views COMPARISON: None. FINDINGS: PELVIC BONES: No displaced fracture, destructive or sclerotic lesions. Note that overlapping bowel shadows may however obscure fine detail. Sacroiliac joints are unremarkable. No widening of the pubic symphysis. HIPS: Mild joint space narrowing both hips. No evidence of fracture, subluxation or dislocation. SOFT TISSUES: No soft tissue swelling or gas. 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 Electronically Signed: Jerome Byrd MD, SHIRA at 19:14 EDT Reading Location ID and State: [facility] / [place] Tel , Service support , CC: FERMENTER HELPER-C Savi Rodriguez; Dr. Jocelin Saunders DO Wool Supplier: Signed Jocelin Saunders DO Work Phone: Start: 11-15-2022 End: 11-15-2022 Procedure Note: See Note; NOTES: [facility] [address] [place] [address] OFFICE VISIT Date of Service: 11/15/22 0814 MR#: [id number] Acct: [id number] Name: FREDERIC OVALLES Rep #: [id number] : 1960 From: Savi Michael GARCIA FERMENTER HELPER -C Age/Sex: 62/M Location: [facility] [place] Status: Signed HPI Subjective Date of Service 11/15/22 Chief Complaint Chronic myeloid leukemia on treatment History of Present Illness 62-year-old gentleman with no known chronic inflammatory or infectious diseases referred in consultation because of a persistent leukocytosis. March 2020 peripheral blood BCR ABL by FISH was positive consistent with chronic myeloid leukemia. Bone marrow aspirate and biopsy April 13, 2020: BONE MARROW DIAGNOSIS Bone marrow biopsy, clot and aspiration (specimens A-C): Hypercellular bone marrow. No stainable iron identified. No evidence of lymphoproliferative disorder. See comment. COMMENT Flow cytometry analysis reveals no increased blasts population. However, myeloid elements exhibit aberrant expression of CD56 and show left shift with down-regulation of CD10 and CD16. The findings are compatible with an underlying primary myeloid neoplasm. The flow cytometry analysis report from [employer] is reviewable in the patient???s EMR. BONE MARROW STUDY Slides are reviewed. CBC DATE: 04/13/20 WBC 22.5; RBC 5.33; HGB 15.8; HCT 48.5; MCV 91.0; RDW 48.2; PLTS 206,000 SEGS 54%; LYMPHS 23%; MONOS 11%; EOS 2%; BASOS 0% PERIPHERAL SMEAR: Submitted. RBC: Normochromic, normomorphic WBC: Neutrophilic leukocytosis with slight left shift. PLTS: Normomorphic BONE MARROW ASPIRATE DIFFERENTIAL: 200 cell count. Blasts % (normal 0-2): 2 Promyelocytes % (normal 1-5): 5 Myelocytes and metamyelocytes % (normal 17-41): 38 Bands and Segs % (normal 15-32): 26 Eos % (normal 1-6): 2 Basos % (normal 0-1): 0 Monocytes % (normal 0-4): 2 Erythroid Precursors % (normal 17-35): 18 Lymphocytes % (normal 7-13): 7 Plasma Cells % (normal 0-2): 0 ASPIRATE FINDINGS: Site: Not specified Paucispicular Cellular M/E ratio: Within normal limits (Normal 1.5 - 4.0) Megakaryocytes: Adequate Erythropoiesis: Progressive Granulopoiesis: Normoblastic CORE BIOPSY FINDINGS: Site: Not specified Adequacy: No bone present Cellularity %: Not applicable M/E ratio: Not applicable Blood Only rare marrow cell noted. ASPIRATE CLOT FINDINGS: Site: Not specified Marrow Particles: Many Cellularity %: 80% M/E ratio: Within normal limits Megakaryocytes: Adequate Granuloma(s): 0 Lymphoid aggregate(s): 0 Atypical infiltrate(s): 0 SPECIAL STAINS (with matched controls): Iron: Stainable iron not present Reticulin: Within normal limits PAS: Highlights myeloid elements and megakaryocytes. ADDENDUM FISH BCR/ABL1 REPORT FROM [facility] INTERPRETATION: BCR/ABL gene rearrangement is detected. RESULTS: BCR/ABL1 Normal Nuclei Positive Nuclei with Dual Fusion 3.33% 96.67% CYTOGENETICS REPORT FROM [facility] INTERPRETATION: Abnormal male karyotype was observed in twenty metaphases analyzed. 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 Bosutinib August 10, 2022-. Interval History The patient is presenting to clinic for a planned follow-up. He denies any concerns r/t today's visit. Confirms adherence to oral therapy, Bosulif 400 mg at 6 pm. States "I still feel good" No reoccurrence of diarrhea x 1 month. Specifically denies fever/chills, fatigue, sweats, headache, dizziness, vision changes, rash, CP, palpitations, abd pain, nausea, swelling/pain of his extremities. Describes appetite as good, PO fluid intake as adequate. [facility] Medical History (Updated 11/15/22 @ 08:39 by Savi Rodriguez FERMENTER HELPER, FERMENTER HELPER-C) Atherosclerosis of coronary artery of [place] heart without angina pectoris Encounter for screening for malignant neoplasm of lung in current smoker with 30 pack year history or greater Essential (primary) hypertension Fatigue Fracture of great toe, right, open Hiatal hernia with GERD History of back problems History of ST elevation myocardial infarction (STEMI) (01/20/17) Hyperlipidemia Leukocytosis Low back pain Near syncope Nicotine dependence Obesity (BMI 30.0-34.9) 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) 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, right Pneumonia Tobacco use disorder, continuous Unspecified injury of right foot, sequela Surgical History History of bilateral inguinal hernia repair (08/2018) History of bone marrow biopsy (04/13/20) History of coronary artery stent placement (01/20/17) Status post laparoscopic Migue fundoplication (10/15/18) Family History Father Colon cancer Diabetes Heart disease Hypertension CAD (coronary artery disease) Sister Breast cancer Mother CAD (coronary artery disease) Hypertension Heart disease Social History household members: spouse Smoking Status: Current every day smoker tobacco type: cigarettes Tobacco: How many years used: 40 Electronic Cigarette Use: not used second hand exposure: No quit status: considering quitting counseling given: provider counseling alcohol intake: current alcohol intake frequency: a few times a week Alcohol type: beer substance use type: does not use well-balanced diet: about half the time uyen/latter-day: Latter Day seatbelt use: always do you feel safe at home: Yes ROS ROS Narrative Negative except as documented in the interval HPI Intake Vital Signs 11/15/22 08:15 11/15/22 08:18 Height 6 ft 6 ft Weight: 239 lb 4 oz BMI 32.4 BP 126/77 H Blood Pressure Location Lt brachial Position Sitting Respiration 16 Pulse 61 Pulse Source Monitor Temp 98.6 F Temperature Source Temporal Artery Pulse Oximetry (%) 96 Oxygen Delivery Method room air Intake Accompanied by: Self Is patient in pain?: Yes (low back pain, radiates down LLE x 1 week) Allergies No Known Allergies Allergy (Verified 11/15/22 08:15) Medications aspirin 81 mg tablet,delayed release 81 mg PO DAILY 09/02/18 [History Confirmed 11/15/22] carvedilol 6.25 mg tablet 6.25 mg PO BID 09/02/18 [History Confirmed 11/15/22] cholecalciferol (vitamin D3) 25 mcg (1,000 unit) capsule 1,000 unit PO DAILY 09/02/18 [History Confirmed 11/15/22] ramipril 2.5 mg capsule 2.5 mg PO DAILY 09/02/18 [History Confirmed 11/15/22] atorvastatin 80 mg tablet 80 mg PO QHS 12/15/19 [History Confirmed 11/15/22] omega 3-dha 60 mg-epa 90 mg-fish oil 500 mg capsule, delayed release 1 cap PO DAILY 05/12/20 [History Confirmed 11/15/22] vitamin E 200 unit capsule 200 unit PO DAILY 08/25/20 [History Confirmed 11/15/22] ondansetron HCl 8 mg tablet 8 mg PO Q12H PRN PRN Nausea And Vomiting #60 tabs 08/08/22 [Rx Confirmed 11/15/22] bosutinib 100 mg tablet 200 mg PO DAILY 08/16/22 [History Confirmed 11/15/22] sulfamethoxazole 800 mg-trimethoprim 160 mg tablet (Bactrim DS) 1 tab PO .COMPLEX #36 tabs 08/23/22 [Rx Confirmed 11/15/22] ascorbic acid (vitamin C) 500 mg capsule,extended release 500 mg PO Q12H 09/06/22 [History Confirmed 11/15/22] fluticasone fur. 100 mcg-umeclid 62.5 mcg-vilant 25 mcg inhalat.powder (Trelegy Ellipta) 1 inh inhalation Q24H #60 ea 09/18/22 [Rx Confirmed 11/15/22] Central Venous Access Central Venous Access: No Laboratory Tests 11/15/22 11/15/22 07:30 07:30 WBC 8.2 Hgb 15.8 Plt Count 258 Absolute Neuts (auto) 5.5 Absolute Lymphs (auto) 1.54 Sodium 135 L BUN 12 Creatinine 0.93 AST 26 ALT 41 Alkaline Phosphatase 73 Albumin 4.1 TEST RESULTS LIMITS BCR-ABL1, CML/ALL, PCR, Quant e13a2 (b2a2) transcript 0.1829 % e14a2 (b3a2) transcript % <0.0032 % Exam Physical Exam Const alert and oriented x3 Constitutional Narrative: ECOG 0-1 HEENT normocephalic Head and Scalp: normal to inspection Mouth: oral and palatal mucosa normal Eyes conjunctivae normal and no scleral icterus General Eye: normal appearance of both eyes Neck no lymphadenopathy and no JVD Lymph Lymphatic: no lymphadenopathy noted Chest Chest: symmetrical chest wall rise Resp normal respiratory effort and clear to auscultation bilaterally Cardio regular rate, regular rhythm, S1 normal heart sound and S2 normal heart sound Jugular Venous Distention: Negative for JVD GI soft to palpation, non-tender and non-distended; Negative for hepatosplenomegaly no CVA tenderness Back/Spine Lumbar Spine / Lower Back: lumbar spinal tenderness Extremity no clubbing, cyanosis or edema Skin no rashes or lesions noted Neuro oriented x3, CN's II-XII intact bilaterally, moves all extremities and no focal motor deficits Speech: speech normal Gait (Neuro): normal gait Psych mental status grossly normal Coding Level of Care Code Off vis,est,level 4 Exam Problem Focused Diagnoses Chronic myeloid leukemia C92.10 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, right J90 Low back pain M54.50 Assessment and Plan Assessment and Plan (1) Chronic myeloid leukemia: Status: Chronic (2) 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, right: Status: Chronic (3) Low back pain: Status: Acute Orders: Orders HIP, UNI W/ Pelvis 2-3 Views Today M54.50 - Low back pain, unspecified L/S Spine Min 4 Views Today M54.50 - Low back pain, unspecified Comprehensive Metabolic Profil 4 Weeks C92.10 - Chronic myeloid leukemia, BCR/ABL-positive, not having achieved remission CBC W/Diff, Automated 4 Weeks C92.10 - Chronic myeloid leukemia, BCR/ABL-positive, not having achieved remission Culture, Urine Today M54.50 - Low back pain, unspecified Urinalysis, Complete Today M54.50 - Low back pain, unspecified Plan 62-year-old male who presented with with a mature neutrophilic leukocytosis first noted January 2020, progressively worsening. He has no known chronic inflammatory or infectious diseases. BCR ABL profile with FISH is positive consistent with chronic myeloid leukemia. No palpably enlarged spleen (within limitation of body size and habitus) at diagnosis,13.4 cm by ultrasound. Bone marrow aspirate and biopsy March 2020 confirmed the diagnosis with a q BCR ABL positivity of 96.67% ELTS score 1.4177 (low risk). * Started TKI therapy with dasatinib April 28, 2020, a decline in WBC/ANC is consistent with a hematologic response within the first month of treatment. . Mild elevation of liver enzymes less than 2 fold resolved and an increasing leukopenia with preserved neutrophil count noted at 4 weeks of treatment also resolved with continued standard dosing. He showed a major molecular response (MMR) to treatment , however October 2021 he showed an upward trend in q. BCR ABL but then declined to </= 0.1 (optimal) to rise again in May 2022. Date qBCR-ABL (e13a2/b2a2) 03/30/2020 159.1086 08/10/2020 0.3342 11/10/2020 0.017 02/08/2021 0.031 05/09/2021 0.0626 08/09/2021 0.0559 11/08/2021 0.2603 12/12/2021 NEG 03/22/2022 0.056 06/20/2022 0.1436 * In May [address] of the chest showed no abnormalities. In May 2022 he was noted to have developed bilateral pleural effusions, suspected Dasatinib side effect. He improved after the pleural tap. * June 2022 he was evaluated at [facility] by Dr. Lawton for possible evolving Dasatinib resistance and evaluation was negative. Because of the recurrence of pleural effusions recommendation was to switch from Dasatinib to Bosutinib which he started August 10, 2022. Comorbid conditions: smoker with over 30 pack years cigarettes (started at age 18 averaging 1/2 to 1 pack of cigarettes daily), hypertension, coronary artery disease, cerebrovascular disease and dyslipidemia. Plan: #1-Continue Bosutinib with monitor for toxicity on monthly basis. #2-q. BCR/ABL every 3 months. Next to schedule will be in January 2023 #3 -EKG follow-up QTC September, normal. #4-Acute low back pain- obtain UA, urine culture and plain films. Patient to follow up with his pcp. RTO in 4 wks: CBC/CMP prior. 11/15/22 0846 <Electronically signed by Savi Rodriguez NP FERMENTER HELPER-C> Date Savi Rodriguez NP FERMENTER HELPER-C Cosigner Signature: Date (if applicable) CC: Dr. Jocelin Saunders, DO Jocelin Saunders DO Work Phone: Start: 10-22-2022 End: 10-22-2022 Procedure Note: See Note; NOTES: [facility] [place] [address] [place] [address] OFFICE VISIT Date of Service: 10/22/22 MR#: [id number] Acct: [id number] Name: FREDERIC OVALLES Rep #: [id number] : 1960 Provider: SELVIN De La Rosa Age/Sex: 62/M Location: [facility] – [place] Status: Signed Assessment and Plan Assessment and Plan (1) Mixed obstructive and restrictive ventilatory defect: Status: Acute Plan: Stable, he does not appear to be an exacerbation today. No need for prednisone or antibiotic. Continue current maintenance medication, well controlled on triple therapy with Trelegy. No additional testing at this time. Contact the office for any new or worsening symptoms. An acute visit and typically be arranged within 1-2 days. Follow-up in June with Dr Brooks. (2) Nicotine dependence, cigarettes, uncomplicated: Status: Acute Plan: Encourage complete smoking cessation. Due for LDCT in May, ordered accordingly. Follow up with Dr. Brooks after to discuss test results. (3) Bilateral pleural effusion: Status: Chronic Plan: Symptomatically stable. Do not suspect pleural effusion by auscultation or percussion on today's exam. Advised the patient to monitor his oxygen saturations with his portable pulse oximeter at home. He has been instructed to contact the office if he notices readings that are 88% or lower. He conveys understanding. Orders: Orders Low Dose CT Lung Screening 05/22/23 F17.200 - Nicotine dependence, unspecified, uncomplicated, F17.210 - Nicotine dependence, cigarettes, uncomplicated Plan Details Follow Up: 06/21/23 (DMB) HPI 3 M FU Chief Complaint: routine follow up HPI Comments Details: This patient presents to the office today for follow-up of his mixed obstructive and restrictive ventilatory defect complicated by chronic myeloid leukemia. Christine and currently on room air. He has not recently been seen in the ED or urgent care for any respiratory illnesses. He has not required any antibiotics or prednisone for any breathing problems. He is compliant with use of Trelegy 1 puff daily. He does report taking a drink of something after each use. He denies any medication side effect such as sore throat or thrush. He has not recently needed to use any albuterol rescue inhaler. He does have shortness of breath on exertion. He states "not like regular exertion but for example like chasing my dog the other day". He denies any difficulty with cough, sputum production or hemoptysis. He denies any wheezing, chest tightness, chest pain or palpitations. He denies any fever, chills or body aches. He continues to smoke cigarettes. Currently smoking 1/2 pack/day. He does admit that he is trying to quit completely. He does have a portable pulse oximeter at home. He has not recently been utilizing it. Intake Vital Signs 08/20/22 06:58 10/18/22 08:56 10/22/22 07:42 Height 6 ft 6 ft 6 ft Weight: 235 lb BMI 31.8 BP 134/83 H Blood Pressure Location Rt brachial Position Sitting Respiration 18 Pulse 65 Pulse Source Monitor Temp 97.4 F L Temperature Source Temporal Artery Pulse Oximetry (%) 96 Oxygen Delivery Method room air Intake Visit Reasons: 3 M FU Chief Complaint: Chronic myeloid leukemia on treatment Price Accuracy Supervisor Required: No DME Vendor: N/A Accompanied by: Self Is patient in pain?: No Allergies No Known Allergies Allergy (Verified 10/22/22 08:05) Medications aspirin 81 mg tablet,delayed release 81 mg PO DAILY 09/02/18 [History Confirmed 10/22/22] carvedilol 6.25 mg tablet 6.25 mg PO BID 09/02/18 [History Confirmed 10/22/22] cholecalciferol (vitamin D3) 25 mcg (1,000 unit) capsule 1,000 unit PO DAILY 09/02/18 [History Confirmed 10/22/22] ramipril 2.5 mg capsule 2.5 mg PO DAILY 09/02/18 [History Confirmed 10/22/22] atorvastatin 80 mg tablet 80 mg PO QHS 12/15/19 [History Confirmed 10/22/22] omega 3-dha 60 mg-epa 90 mg-fish oil 500 mg capsule, delayed release 1 cap PO DAILY 05/12/20 [History Confirmed 10/22/22] vitamin E 200 unit capsule 200 unit PO DAILY 08/25/20 [History Confirmed 10/22/22] ondansetron HCl 8 mg tablet 8 mg PO Q12H PRN PRN Nausea And Vomiting #60 tabs 08/08/22 [Rx Confirmed 10/22/22] bosutinib 100 mg tablet 200 mg PO DAILY 08/16/22 [History Confirmed 10/22/22] sulfamethoxazole 800 mg-trimethoprim 160 mg tablet (Bactrim DS) 1 tab PO .COMPLEX #36 tabs 08/23/22 [Rx Confirmed 10/22/22] ascorbic acid (vitamin C) 500 mg capsule,extended release 500 mg PO Q12H 09/06/22 [History Confirmed 10/22/22] fluticasone fur. 100 mcg-umeclid 62.5 mcg-vilant 25 mcg inhalat.powder (Trelegy Ellipta) 1 inh inhalation Q24H #60 ea 09/18/22 [Rx Confirmed 10/22/22] PFSH Medical History Atherosclerosis of coronary artery of [place] heart without angina pectoris Encounter for screening for malignant neoplasm of lung in current smoker with 30 pack year history or greater Essential (primary) hypertension Fatigue Fracture of great toe, right, open Hiatal hernia with GERD History of back problems History of ST elevation myocardial infarction (STEMI) (01/20/17) Hyperlipidemia Leukocytosis Near syncope Nicotine dependence Obesity (BMI 30.0-34.9) 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) 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, right Pneumonia Tobacco use disorder, continuous Unspecified injury of right foot, sequela Surgical History History of bilateral inguinal hernia repair (08/2018) History of bone marrow biopsy (04/13/20) History of coronary artery stent placement (01/20/17) Status post laparoscopic Migue fundoplication (10/15/18) Family History Father Colon cancer Diabetes Heart disease Hypertension CAD (coronary artery disease) Sister Breast cancer Mother CAD (coronary artery disease) Hypertension Heart disease Social History household members: spouse Smoking Status: Current every day smoker tobacco type: cigarettes Tobacco: How many years used: 40 Electronic Cigarette Use: not used second hand exposure: No quit status: considering quitting counseling given: provider counseling alcohol intake: current alcohol intake frequency: a few times a week Alcohol type: beer substance use type: does not use well-balanced diet: about half the time uyen/latter-day: Latter Day seatbelt use: always do you feel safe at home: Yes Review of Systems Resp Respiratory: Yes as per HPI Exam Const Constitutional: Positive conversant, cooperative, in no acute respiratory distress, well developed, well nourished and obese Head Head: Yes normocephalic and Yes atraumatic Eyes Eye: Positive clear conjunctiva; Negative nystagmus or scleral abnormality Ears Ear: Positive hearing normal and external ears normal Nose Nose: Yes external nose normal Mouth Mouth: Positive oral mucosae normal Neck Neck: Positive normal visual inspection and trachea midline Chest Wall Chest: Positive symmetric chest movement Normal AP diameter. Resp lung sounds: Positive diminished lung sounds diminished: Positive lower and right; Negative wheezes, rhonchi or rales Cardio Cardiac: Positive regular rate, regular rhythm, S1 normal and S2 normal; Negative murmur, rub or gallop GI GI: Positive obese Soft without distention Genitourinary: Positive deferred Musc Musculoskeletal: Positive steady gait Skin Pulmonary Skin Exam: Positive intact; Negative lesion, rash, ulcers or dermal atrophy Extremities Extremities: No clubbing, No cyanosis and No edema Neuro Neurologic: Yes no focal neuro deficits, Yes conversant, Yes cooperative, Yes normal cognition, Yes normal coordination, Yes normal concentration and Yes understands questions Psych Appearance: Positive grossly normal Mental Status: Positive mental status grossly normal Mood: Positive congruent mood Affect: Positive normal affect Coding Level of Care Code Off vis,est,level 3 Diagnoses Mixed obstructive and restrictive ventilatory defect R94.2 Nicotine dependence, cigarettes, uncomplicated F17.210 Bilateral pleural effusion J90 10/22/22 0850 <Electronically signed by Karin De La Rosa NP FERMENTER HELPER-C> Date Karin De La Rosa NP FERMENTER HELPER-C Cosigner Signature: Date (if applicable) CC: Dr. Jocelin Saunders, DO Jocelin Saunders DO Work Phone: Start: 10-18-2022 End: 10-18-2022 Procedure Note: See Note; NOTES: [facility] [place] [address] OFFICE VISIT Date of Service: 10/18/22 0849 MR#: [id number] Acct: [id number] Name: FREDERIC OVALLES Rep #: [id number] : 1960 From: Sawyer Delgado MD Age/Sex: 62/M Location: [facility] – [place] Status: Signed HPI Subjective Date of Service 10/18/22 Chief Complaint Chronic myeloid leukemia on treatment History of Present Illness 62-year-old gentleman with no known chronic inflammatory or infectious diseases referred in consultation because of a persistent leukocytosis. March 2020 peripheral blood BCR ABL by FISH was positive consistent with chronic myeloid leukemia. Bone marrow aspirate and biopsy April 13, 2020: BONE MARROW DIAGNOSIS Bone marrow biopsy, clot and aspiration (specimens A-C): Hypercellular bone marrow. No stainable iron identified. No evidence of lymphoproliferative disorder. See comment. COMMENT Flow cytometry analysis reveals no increased blasts population. However, myeloid elements exhibit aberrant expression of CD56 and show left shift with down-regulation of CD10 and CD16. The findings are compatible with an underlying primary myeloid neoplasm. The flow cytometry analysis report from [facility] is reviewable in the patient???s EMR. BONE MARROW STUDY Slides are reviewed. CBC DATE: 04/13/20 WBC 22.5; RBC 5.33; HGB 15.8; HCT 48.5; MCV 91.0; RDW 48.2; PLTS 206,000 SEGS 54%; LYMPHS 23%; MONOS 11%; EOS 2%; BASOS 0% PERIPHERAL SMEAR: Submitted. RBC: Normochromic, normomorphic WBC: Neutrophilic leukocytosis with slight left shift. PLTS: Normomorphic BONE MARROW ASPIRATE DIFFERENTIAL: 200 cell count. Blasts % (normal 0-2): 2 Promyelocytes % (normal 1-5): 5 Myelocytes and metamyelocytes % (normal 17-41): 38 Bands and Segs % (normal 15-32): 26 Eos % (normal 1-6): 2 Basos % (normal 0-1): 0 Monocytes % (normal 0-4): 2 Erythroid Precursors % (normal 17-35): 18 Lymphocytes % (normal 7-13): 7 Plasma Cells % (normal 0-2): 0 ASPIRATE FINDINGS: Site: Not specified Paucispicular Cellular M/E ratio: Within normal limits (Normal 1.5 - 4.0) Megakaryocytes: Adequate Erythropoiesis: Progressive Granulopoiesis: Normoblastic CORE BIOPSY FINDINGS: Site: Not specified Adequacy: No bone present Cellularity %: Not applicable M/E ratio: Not applicable Blood Only rare marrow cell noted. ASPIRATE CLOT FINDINGS: Site: Not specified Marrow Particles: Many Cellularity %: 80% M/E ratio: Within normal limits Megakaryocytes: Adequate Granuloma(s): 0 Lymphoid aggregate(s): 0 Atypical infiltrate(s): 0 SPECIAL STAINS (with matched controls): Iron: Stainable iron not present Reticulin: Within normal limits PAS: Highlights myeloid elements and megakaryocytes. ADDENDUM FISH BCR/ABL1 REPORT FROM [facility] INTERPRETATION: BCR/ABL gene rearrangement is detected. RESULTS: BCR/ABL1 Normal Nuclei Positive Nuclei with Dual Fusion 3.33% 96.67% CYTOGENETICS REPORT FROM [facility] INTERPRETATION: Abnormal male karyotype was observed in twenty metaphases analyzed. 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 Bosutinib August 10, 2022-. [facility] Medical History Atherosclerosis of coronary artery of [place] heart without angina pectoris Encounter for screening for malignant neoplasm of lung in current smoker with 30 pack year history or greater Essential (primary) hypertension Fatigue Fracture of great toe, right, open Hiatal hernia with GERD History of back problems History of ST elevation myocardial infarction (STEMI) (01/20/17) Hyperlipidemia Leukocytosis Near syncope Nicotine dependence Obesity (BMI 30.0-34.9) 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) 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, right Pneumonia Tobacco use disorder, continuous Unspecified injury of right foot, sequela Surgical History History of bilateral inguinal hernia repair (08/2018) History of bone marrow biopsy (04/13/20) History of coronary artery stent placement (01/20/17) Status post laparoscopic Migue fundoplication (10/15/18) Family History Father Colon cancer Diabetes Heart disease Hypertension CAD (coronary artery disease) Sister Breast cancer Mother CAD (coronary artery disease) Hypertension Heart disease Social History household members: spouse Smoking Status: Current every day smoker tobacco type: cigarettes Tobacco: How many years used: 40 Electronic Cigarette Use: not used second hand exposure: No quit status: considering quitting counseling given: provider counseling alcohol intake: current alcohol intake frequency: a few times a week Alcohol type: beer substance use type: does not use well-balanced diet: about half the time uyen/latter-day: Latter Day seatbelt use: always do you feel safe at home: Yes ROS Constitutional Constitutional: Reports systems reviewed and no addt'l complaints, except as documented; Denies anorexia, fatigue, fever(s), night sweats or weight loss Eyes Eyes: Reports systems reviewed and no addt'l complaints, except as documented ENT HEENT: Reports systems reviewed and no addt'l complaints, except as documented; Denies dysphagia, headache(s), mouth lesions or mucositis Cardiovascular Cardiovascular: Reports systems reviewed and no addt'l complaints, except as documented; Denies chest pain with activity, edema or palpitations Respiratory/Chest Respiratory/Chest: Reports systems reviewed and no addt'l complaints, except as documented and dyspnea on exertion; Denies cough Gastrointestinal Gastrointestinal: Reports systems reviewed and no addt'l complaints, except as documented and other Details: Diarrhea very infrequent, uses Imodium on average once every 2 weeks or so, may be diet related ; Denies change in bowel habits, diarrhea or nausea Genitourinary Genitourinary: Reports systems reviewed and no addt'l complaints, except as documented; Denies dysuria Musculoskeletal Musculoskeletal: Reports systems reviewed and no addt'l complaints, except as documented, back pain and other Details: Chronic back pain unchanged Integumentary Integumentary: Reports systems reviewed and no addt'l complaints, except as documented and dry skin Neurologic Neurologic: Reports systems reviewed and no addt'l complaints, except as documented; Denies headache(s) or weakness Psychiatric Psychiatric: Reports systems reviewed and no addt'l complaints, except as documented and other Details: Dreams, no nightmares Endocrine Endocrinology: Reports systems reviewed and no addt'l complaints, except as documented Hematologic/Lymphatic Hematologic/Lymphatic: Reports systems reviewed and no addt'l complaints, except as documented; Denies easy bleeding or easy bruising Allergic/Immunologic Allergic/Immunologic: Reports systems reviewed and no addt'l complaints, except as documented Intake Vital Signs 09/20/22 13:55 10/18/22 08:50 10/18/22 08:56 Height 6 ft 6 ft 6 ft BP 130/81 H Blood Pressure Location Rt brachial Position Sitting Respiration 17 Pulse 62 Pulse Source Monitor Temp 98.3 F Temperature Source Temporal Artery Pulse Oximetry (%) 96 Oxygen Delivery Method room air Intake Price Accuracy Supervisor Required: No Accompanied by: Self Is patient in pain?: No Allergies No Known Allergies Allergy (Verified 10/18/22 08:55) Medications aspirin 81 mg tablet,delayed release 81 mg PO DAILY 09/02/18 [History Confirmed 10/18/22] carvedilol 6.25 mg tablet 6.25 mg PO BID 09/02/18 [History Confirmed 10/18/22] cholecalciferol (vitamin D3) 25 mcg (1,000 unit) capsule 1,000 unit PO DAILY 09/02/18 [History Confirmed 10/18/22] ramipril 2.5 mg capsule 2.5 mg PO DAILY 09/02/18 [History Confirmed 10/18/22] atorvastatin 80 mg tablet 80 mg PO QHS 12/15/19 [History Confirmed 10/18/22] omega 3-dha 60 mg-epa 90 mg-fish oil 500 mg capsule, delayed release 1 cap PO DAILY 05/12/20 [History Confirmed 10/18/22] vitamin E 200 unit capsule 200 unit PO DAILY 08/25/20 [History Confirmed 10/18/22] ondansetron HCl 8 mg tablet 8 mg PO Q12H PRN PRN Nausea And Vomiting #60 tabs 08/08/22 [Rx Confirmed 10/18/22] bosutinib 100 mg tablet 200 mg PO DAILY 08/16/22 [History Confirmed 10/18/22] sulfamethoxazole 800 mg-trimethoprim 160 mg tablet (Bactrim DS) 1 tab PO .COMPLEX #36 tabs 08/23/22 [Rx Confirmed 10/18/22] ascorbic acid (vitamin C) 500 mg capsule,extended release 500 mg PO Q12H 09/06/22 [History Confirmed 10/18/22] fluticasone fur. 100 mcg-umeclid 62.5 mcg-vilant 25 mcg inhalat.powder (Trelegy Ellipta) 1 inh inhalation Q24H #60 ea 09/18/22 [Rx Confirmed 10/18/22] Central Venous Access Central Venous Access: No CBC, CMP October 18, 2022 reviewed in EMR Coding Level of Care Code Off vis,est,level 4 Exam Problem Focused Diagnoses Chronic myeloid leukemia C92.10 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, right J90 Assessment and Plan Assessment and Plan (1) Chronic myeloid leukemia: Status: Chronic (2) 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, right: Status: Chronic Plan 62-year-old male who presented with with a mature neutrophilic leukocytosis first noted January 2020, progressively worsening. He has no known chronic inflammatory or infectious diseases. BCR ABL profile with FISH is positive consistent with chronic myeloid leukemia. No palpably enlarged spleen (within limitation of body size and habitus) at diagnosis,13.4 cm by ultrasound. Bone marrow aspirate and biopsy March 2020 confirmed the diagnosis with a q BCR ABL positivity of 96.67% ELTS score 1.4177 (low risk). * Started TKI therapy with dasatinib April 28, 2020, a decline in WBC/ANC is consistent with a hematologic response within the first month of treatment. . Mild elevation of liver enzymes less than 2 fold resolved and an increasing leukopenia with preserved neutrophil count noted at 4 weeks of treatment also resolved with continued standard dos ing. He showed a major molecular response (MMR) to treatment , however October 2021 he showed an upward trend in q. BCR ABL but then declined to </= 0.1 (optimal) to rise again in May 2022. Date qBCR-ABL (e13a2/b2a2) 03/30/2020 159.1086 08/10/2020 0.3342 11/10/2020 0.017 02/08/2021 0.031 05/09/2021 0.0626 08/09/2021 0.0559 11/08/2021 0.2603 12/12/2021 NEG 03/22/2022 0.056 06/20/2022 0.1436 * In May [address] of the chest showed no abnormalities. In May 2022 he was noted to have developed bilateral pleural effusions, suspected Dasatinib side effect. He improved after the pleural tap. * June 2022 he was evaluated at [facility] by Dr. Lawton for possible evolving Dasatinib resistance and evaluation was negative. Because of the recurrence of pleural effusions recommendation was to switch from Dasatinib to Bosutinib which he started August 10, 2022. Comorbid conditions: smoker with over 30 pack years cigarettes (started at age 18 averaging 1/2 to 1 pack of cigarettes daily), hypertension, coronary artery disease, cerebrovascular disease and dyslipidemia. Plan: #1-Continue Bosutinib with monitor for toxicity on bi- weekly basis in the 2nd t month of therapy. #2-q. BCR/ABL every 3 months. Next to schedule will be in October 2022 #3 - He is also being followed up in pulmonary clinic; for the pleural effusion and lung cancer screening. #5-EKG follow-up QTC September, normal. Patient was seen , impression and plan discussed. Sawyer Delgado MD Transit Driver, [facility] Divisions of Medical Oncology Hematology Department of Internal Medicine [place] [id number] This note was generated using a voice recognition system software. Although it was reviewed by the author prior to finalization, it may still contain incorrect words, spelling, and punctuation that were not noted when reviewing prior to saving. If a clinically significant typo or inaccurately typed phrase is noted, please notify the author. 10/18/22 0905 <Electronically signed by Sawyer Delgado MD> Date Sawyer Delgado MD Cosigner Signature: Date (if applicable) CC: Dr. Jocelin Saunders, DO Jocelin Saunders DO Work Phone: Start: 10-18-2022 End: 10-18-2022 Procedure Note: See Note; NOTES: [facility] [address] [place] [address] MR#: [id number] Acct: [id number] Name: FREDERIC OVALLES Rep #: [id number] : 1960 62 From: Hector Hsu MD Primary Care: Dr. Jocelin Saunders, DO Status: REG CLI Referring Dr: Sex: M C Stress Test Report Exercise myocardial perfusion stress test. 62-year-old man with a history of coronary artery disease Stress protocol: Resting EKG demonstrates normal sinus rhythm with a rate of 60 bpm resting blood pressure is 140/94 mmHg. The patient exercised according to the regular Gallito protocol for a total duration of 9 minutes attaining a maximum heart rate of 129 bpm which was 81% of maximum predicted heart rate; the maximum workload was 10.1 metabolic equivalents. At rest there were no ST or T wave changes noted to suggest ischemia and at peak exercise upsloping ST changes only were noted which did not meet the criteria for ischemia. No clinical angina was noted the test was terminated due to the target heart rate being achieved/fatigue. The peak blood pressure was 190/84 mmHg. Rate-pressure product was 21,400. Myocardial perfusion protocol. 14 point mCi of technetium 99m sestamibi was injected at rest. The patient exercised according to regular Gallito protocol for total duration of 9 minutes and at peak exercise 44.8 mCi of technetium 99m sestamibi was injected stress images were obtained stress and rest images were reconstructed in comparing the short axis vertical long and horizontal long axis. Gated images were also obtained. Perfusion SPECT analysis: Review of the stress images demonstrate normal uptake of tracer noted in all areas of the myocardium. The resting images similarly demonstrate normal uptake of tracer noted in all areas of the myocardium. No areas of reversibility are noted to suggest ischemia no previous infarct was noted. Gated SPECT analysis: The gated ejection fraction is 59%. Conclusion: Normal exercise myocardial perfusion stress test at a high workload Preserved ejection fraction. 10/18/22 0731 <Electronically signed by Hector Hsu MD> Date Hector Hsu MD CC: Dr. Hector Hsu MD; Dr. Jocelin Saunders DO Date Dictated: 10/18/22728 Date Transcribed: 10/18/22728 Wool Supplier: [place] Signed Jocelin Saunders DO Work Phone: Start: 10-18-2022 Plain chest X-ray Dr. Jocelin Saunders Work Phone: Start: 10-18-2022 Radiologic exam chest [address] Saturnino Saunders DO Work Phone: Start: 10-18-2022 End: 10-18-2022 Procedure Note: See Note; NOTES: [facility] Imaging Services [address] [place] [id number] Chest PA and Lateral MR#: [id number] Acct: [id number] Name: FREDERIC OVALLES Alyx Rep #: [id number] : 1960 M 62 From: Ryne Pena DO PCP: Dr. Jocelin Saunders DO Status: REG RCR Study: Chest PA and Lateral Date of Exam: 10/18/22 Exam# [id number] Ordering Dr: Sawyer Delgado MD INDICATION: F/U EFFUSION EXAMINATION/TECHNIQUE: X-RAY - XR Chest 2 Views COMPARISON: August 16, 2022. FINDINGS: LINES/DEVICES: None. LUNGS: There is a right pleural effusion with basilar atelectasis. No pneumothorax. MEDIASTINUM AND CARDIOVASCULAR STRUCTURES: Cardiac silhouette not enlarged. Central airways and mediastinal contour are unremarkable. BONES AND SOFT TISSUES: Unremarkable. RAD/Chest PA and Lateral IMPRESSION: Right pleural effusion with atelectasis. Electronically Signed: Ryne Pena DO at 18:35 EDT , CC: Dr. Jocelin Saunders, DO; Dr. Sawyer Delgado MD Wool Supplier: Signed Sawyer Delgado Work Phone: Start: 10-17-2022 Radionuclide imaging of perfusion of myocardium under exercise stress Dr. Jocelin Saunders Work Phone: Start: 10-05-2022 End: 10-05-2022 Procedure Note: See Note; NOTES: [facility] [address] [place] [address] OFFICE VISIT Date of Service: 10/05/22 MR#: [id number] Acct: [id number] Name: FREDERIC OVALLES Rep #: [id number] : 1960 Provider: Dr. Hector Hsu MD Age/Sex: 62/M Location: [facility] Status: Signed HPI HPI History of Present Illness Details: This is a 61-year-old gentleman that presents here today for a follow-up cardio oncology visit. He has a history of coronary artery disease with myocardial infarction in 2017 with 2 stents placed at that time.??? He had suffered a V. fib arrest. He had 2 stents placed, one was in the proximal left anterior descending artery and the other was in the mid right coronary artery.??? He also has a history of hypertension, hyperlipidemia.??? He has been diagnosed with chronic myeloid leukemia and has recently been on Busotinib which he has tolerated well. His echocardiographic findings prior to this demonstrated an ejection fraction of 55% with a global longitudinal strain of 18.1. From a cardiac standpoint, patient is doing well.??? He does not have any chest discomfort/heaviness/tightness .??? His exercise tolerance is stable for his age.??? He does not have any worsening symptoms of shortness of breath. He does get SOB with exertional activity but it would be what he would expect. He denies any PND.??? He does not have any orthopnea.??? He does not have any symptoms of congestive heart failure.??? He does not have any palpitations that he is aware of.??? He does not have any lightheadedness or dizziness.??? He had a Holter monitor placed which demonstrated an average heart rate of 70 bpm minimum of 65 and max 108 bpm. Carotid ultrasound also did not demonstrate any significant abnormalities. He did undergo a stress test in August 2018 where he exercised to a high metabolic workload.??? He did undergo some blood flow screening which demonstrated no significant plaque in the carotid arteries. He does not have any lower extremity edema.??? He does not have any symptoms of claudication.??? His physical exam demonstrated clear lung osuna regular rate and rhythm and no pedal edema Intake Vital Signs 08/30/22 12:56 10/05/22 10:21 10/05/22 10:22 Height 6 ft 6 ft 0.05 in 6 ft Weight: 233 lb BMI 31.5 BP 114/69 Blood Pressure Location Lt brachial Position Sitting Respiration 15 Pulse 62 Pulse Source NIBP Temp 98.4 F Temperature Source Temporal Artery Pulse Oximetry (%) 95 Oxygen Delivery Method room air Intake Visit Reasons: 6 m fu Price Accuracy Supervisor Required: No Is patient in pain?: No Allergies No Known Allergies Allergy (Verified 10/05/22 10:18) Medications aspirin 81 mg tablet,delayed release 81 mg PO DAILY 09/02/18 [History Confirmed 10/04/22] carvedilol 6.25 mg tablet 6.25 mg PO BID 09/02/18 [History Confirmed 10/04/22] cholecalciferol (vitamin D3) 25 mcg (1,000 unit) capsule 1,000 unit PO DAILY 09/02/18 [History Confirmed 10/04/22] ramipril 2.5 mg capsule 2.5 mg PO DAILY 09/02/18 [History Confirmed 10/04/22] atorvastatin 80 mg tablet 80 mg PO QHS 12/15/19 [History Confirmed 10/04/22] omega 3-dha 60 mg-epa 90 mg-fish oil 500 mg capsule, delayed release 1 cap PO DAILY 05/12/20 [History Confirmed 10/04/22] vitamin E 200 unit capsule 200 unit PO DAILY 08/25/20 [History Confirmed 10/04/22] ondansetron HCl 8 mg tablet 8 mg PO Q12H PRN PRN Nausea And Vomiting #60 tabs 08/08/22 [Rx Confirmed 10/04/22] bosutinib 100 mg tablet 200 mg PO DAILY 08/16/22 [History Confirmed 10/04/22] sulfamethoxazole 800 mg-trimethoprim 160 mg tablet (Bactrim DS) 1 tab PO .COMPLEX #36 tabs 08/23/22 [Rx Confirmed 10/04/22] ascorbic acid (vitamin C) 500 mg capsule,extended release 500 mg PO Q12H 09/06/22 [History Confirmed 10/04/22] fluticasone fur. 100 mcg-umeclid 62.5 mcg-vilant 25 mcg inhalat.powder (Trelegy Ellipta) 1 inh inhalation Q24H #60 ea 09/18/22 [Rx Confirmed 10/04/22] Ejection fraction %: 55 to 59 PFSH Medical History Atherosclerosis of coronary artery of [place] heart without angina pectoris Encounter for screening for malignant neoplasm of lung in current smoker with 30 pack year history or greater Essential (primary) hypertension Fatigue Fracture of great toe, right, open Hiatal hernia with GERD History of back problems History of ST elevation myocardial infarction (STEMI) (01/20/17) Hyperlipidemia Leukocytosis Near syncope Nicotine dependence Obesity (BMI 30.0-34.9) 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) 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, right Pneumonia Tobacco use disorder, continuous Unspecified injury of right foot, sequela Surgical History History of bilateral inguinal hernia repair (08/2018) History of bone marrow biopsy (04/13/20) History of coronary artery stent placement (01/20/17) Status post laparoscopic Migue fundoplication (10/15/18) Family History Father Colon cancer Diabetes Heart disease Hypertension CAD (coronary artery disease) Sister Breast cancer Mother CAD (coronary artery disease) Hypertension Heart disease Social History household members: spouse Smoking Status: Current every day smoker tobacco type: cigarettes Tobacco: How many years used: 40 Electronic Cigarette Use: not used second hand exposure: No quit status: considering quitting counseling given: provider counseling alcohol intake: current alcohol intake frequency: a few times a week Alcohol type: beer substance use type: does not use well-balanced diet: about half the time uyen/latter-day: Latter Day seatbelt use: always do you feel safe at home: Yes ROS Const Const: Negative for fatigue, body ache, fever(s) or chills ENT ENT: Negative for dizziness or Nosebleed/epistaxis Cardio Chest Pain: No Palpitations: No Edema: None Muscle aches with walking: None Resp Respiratory: Negative for SOB with activity, SOB at rest, SOB orthopnea SOB lying down, Cough or paroxysmal nocturnal dyspnea GI GI: Negative nausea, bright, red blood in stools, black,tarry stools or loose stools : Negative for hematuria or frequent nighttime urination/ nocturia Musc Musc: Negative for muscle aches/ myalgia Skin Skin: Negative non-healing lesions Neuro Neuro: Negative for dizziness, lightheadedness, near syncope, syncope or orthostatic symptoms Endo Endo: Negative for fatigue Cardiology Exam Const Appearance: cooperative, healthy appearing, no acute distress, well developed and well groomed Nutritional Appearance: average body habitus and well nourished Orientation: alert, awake and oriented x3 Head Head: normal to inspection, normocephalic and atraumatic Ears: hearing grossly normal bilaterally and external ears normal Nose: external nose normal, nares normal, nasal mucous membranes and turbinates normal, septum normal and no nasal discharge Face and Sinus: face symmetric Mouth: oral mucosae normal, tongue normal, oropharynx normal and moist mucous membranes Teeth and gingiva: dentition normal Throat: posterior oropharynx normal, tonsils normal and uvula midline Eyes General: appearance normal, both eyes and all related structures Eyelids: eyelids normal Conjunctivae: conjunctivae normal Pupils: PERRL, normal by confrontation and accommodation normal EOM: EOM intact bilaterally Neck Neck: normal visual inspection, trachea midline and no JVD JVD: +5 Carotids: normal carotid upstroke and bounding pulses Chest Chest inspection: normal inspection of the chest, symmetric chest movement and normal respiratory effort Auscultation: Bilateral: Clear to Auscultation Cardio Palpation: normal PMI Rate: regular rate Rhythm: regular rhythm Heart sounds: S1 normal, S2 normal and normal, physiologic split S2; Negative rub, gallop or murmur GI GI: normal to inspection, soft, no hepatosplenomegaly and bowel sounds present Neuro General: patient alert, patient awake, patient oriented x3, gait normal, moves all extremities and no focal sensory deficit Skin Skin: no rashes or lesions noted Extremities Pulses: Normal: Right Femoral Pulse, Left Femoral Pulse, Right Dorsalis Pedis Pulse, Left Dorsalis Pedis Pulse, Right Posterior Tibial Pulse, Left Posterior Tibial Pulse, Right Radial Pulse and Left Radial Pulse Lower Extremity Edema: None: Bilateral Musculoskel Musculoskeletal: No joint tenderness Psych Psychological: normal affect Supplemental Info Supplemental Information Labs: No Data to Display Diagnostics: Electrocardiogram Chest X-Ray Pulmonary: No Data to Display Past Visits: No Data to Display Assessment and Plan Assessment and Plan (1) History of coronary artery stent placement: Status: Resolved Comment: PCI-NICA-Mid LAD 4.0 x 20 mm Synergy, NICA-Mid RCA w/ 4.0 x 16mm Synergy 01/20/2017 Plan: He does have a history of coronary artery stenting. The plan is for him to continue the current medical therapy and obtain a lipid profile and then also obtain a stress test on medications. Depending on how he does further recommendations will be made. (2) Essential (primary) hypertension: Status: Chronic Plan: He has a history of blood pressure elevation but at the moment it is well controlled I would not recommend that we make any other major changes. (3) Chronic myeloid leukemia: Status: Chronic Plan: With respect to his chronic myeloid leukemia he appears to be tolerating the above quite well. There do not appear to be any dysrhythmias noted. His last EKG also demonstrated normal sinus rhythm with a rate of 66 bpm and no acute changes. Thank you for allowing me to participate in the care of your patient. Please don't hesitate to call if any issues arise. Orders: Orders Lipid Profile Today I25.10 - Atherosclerotic heart disease of [place] coronary artery without angina pectoris Liver Profile Today I10 - Essential (primary) hypertension, Z95.5 - Presence of coronary angioplasty implant and graft Nuclear Stress Test - Treadmil Today I25.10 - Atherosclerotic heart disease of [place] coronary artery without angina pectoris Plan Details 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) Coding Level of Care Code Off vis,est,level 4 Diagnoses History of coronary artery stent placement Z95.5 Essential (primary) hypertension I10 Chronic myeloid leukemia C92.10 Coding Level of Care Code Off vis,est,level 4 Diagnoses History of coronary artery stent placement Z95.5 Essential (primary) hypertension I10 Chronic myeloid leukemia C92.10 10/05/22 1041 <Electronically signed by Hector Hsu MD> Date Hector Hsu MD Cosigner Signature: Date (if applicable) CC: Jocelin Saunders DO Work Phone: Start: 10-04-2022 End: 10-04-2022 Procedure Note: See Note; NOTES: [facility] [address] [place] [address]. [place] [address] OFFICE VISIT Date of Service: 10/04/22 1041 MR#: [id number] Acct: [id number] Name: FREDERIC OVALLES Rep #: [id number] : 1960 From: Savi Rodriguez NP FERMENTER HELPER -C Age/Sex: 62/M Location: [facility] – [place] Status: Signed HPI Subjective Date of Service 10/04/22 Chief Complaint Chronic myeloid leukemia on treatment History of Present Illness 62-year-old gentleman with no known chronic inflammatory or infectious diseases referred in consultation because of a persistent leukocytosis. March 2020 peripheral blood BCR ABL by FISH was positive consistent with chronic myeloid leukemia. Bone marrow aspirate and biopsy April 13, 2020: BONE MARROW DIAGNOSIS Bone marrow biopsy, clot and aspiration (specimens A-C): Hypercellular bone marrow. No stainable iron identified. No evidence of lymphoproliferative disorder. See comment. COMMENT Flow cytometry analysis reveals no increased blasts population. However, myeloid elements exhibit aberrant expression of CD56 and show left shift with down-regulation of CD10 and CD16. The findings are compatible with an underlying primary myeloid neoplasm. The flow cytometry analysis report from [facility] is reviewable in the patient???s EMR. BONE MARROW STUDY Slides are reviewed. CBC DATE: 04/13/20 WBC 22.5; RBC 5.33; HGB 15.8; HCT 48.5; MCV 91.0; RDW 48.2; PLTS 206,000 SEGS 54%; LYMPHS 23%; MONOS 11%; EOS 2%; BASOS 0% PERIPHERAL SMEAR: Submitted. RBC: Normochromic, normomorphic WBC: Neutrophilic leukocytosis with slight left shift. PLTS: Normomorphic BONE MARROW ASPIRATE DIFFERENTIAL: 200 cell count. Blasts % (normal 0-2): 2 Promyelocytes % (normal 1-5): 5 Myelocytes and metamyelocytes % (normal 17-41): 38 Bands and Segs % (normal 15-32): 26 Eos % (normal 1-6): 2 Basos % (normal 0-1): 0 Monocytes % (normal 0-4): 2 Erythroid Precursors % (normal 17-35): 18 Lymphocytes % (normal 7-13): 7 Plasma Cells % (normal 0-2): 0 ASPIRATE FINDINGS: Site: Not specified Paucispicular Cellular M/E ratio: Within normal limits (Normal 1.5 - 4.0) Megakaryocytes: Adequate Erythropoiesis: Progressive Granulopoiesis: Normoblastic CORE BIOPSY FINDINGS: Site: Not specified Adequacy: No bone present Cellularity %: Not applicable M/E ratio: Not applicable Blood Only rare marrow cell noted. ASPIRATE CLOT FINDINGS: Site: Not specified Marrow Particles: Many Cellularity %: 80% M/E ratio: Within normal limits Megakaryocytes: Adequate Granuloma(s): 0 Lymphoid aggregate(s): 0 Atypical infiltrate(s): 0 SPECIAL STAINS (with matched controls): Iron: Stainable iron not present Reticulin: Within normal limits PAS: Highlights myeloid elements and megakaryocytes. ADDENDUM FISH BCR/ABL1 REPORT FROM [facility] INTERPRETATION: BCR/ABL gene rearrangement is detected. RESULTS: BCR/ABL1 Normal Nuclei Positive Nuclei with Dual Fusion 3.33% 96.67% CYTOGENETICS REPORT FROM [facility] INTERPRETATION: Abnormal male karyotype was observed in twenty metaphases analyzed. 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 Bosutinib August 10, 2022-. Interval History The patient is presenting to clinic for a planned follow up. He denies any concerns r/t today's visit. Confirms adherence to oral therapy, Bosulif 400 mg at 6 pm. States "I still feel good" No reoccurrence of diarrhea x 1 month. Specifically denies fever/chills, fatigue, sweats, headache, dizziness, vision changes, rash, CP, palpitations, abd pain, nausea, swelling/pain of his extremities. Describes appetite as good, PO fluid intake as adequate. [facility] Medical History Atherosclerosis of coronary artery of [place] heart without angina pectoris Encounter for screening for malignant neoplasm of lung in current smoker with 30 pack year history or greater Essential (primary) hypertension Fatigue Fracture of great toe, right, open Hiatal hernia with GERD History of back problems History of ST elevation myocardial infarction (STEMI) (01/20/17) Hyperlipidemia Leukocytosis Near syncope Nicotine dependence Obesity (BMI 30.0-34.9) 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) 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, right Pneumonia Tobacco use disorder, continuous Unspecified injury of right foot, sequela Surgical History History of bilateral inguinal hernia repair (08/2018) History of bone marrow biopsy (04/13/20) History of coronary artery stent placement (01/20/17) Status post laparoscopic Migue fundoplication (10/15/18) Family History Father Colon cancer Diabetes Heart disease Hypertension CAD (coronary artery disease) Sister Breast cancer Mother CAD (coronary artery disease) Hypertension Heart disease Social History household members: spouse Smoking Status: Current every day smoker tobacco type: cigarettes Tobacco: How many years used: 40 Electronic Cigarette Use: not used second hand exposure: No quit status: considering quitting counseling given: provider counseling alcohol intake: current alcohol intake frequency: a few times a week Alcohol type: beer substance use type: does not use well-balanced diet: about half the time uyen/latter-day: Latter Day seatbelt use: always do you feel safe at home: Yes ROS ROS Narrative Negative except as documented in the interval HPI Intake Vital Signs 08/16/22 13:07 10/04/22 10:41 10/04/22 10:44 Height 6 ft 6 ft 6 ft Weight: 235 lb 6 oz BMI 31.9 BP 123/78 H Blood Pressure Location Rt brachial Position Sitting Respiration 16 Pulse 64 Pulse Source Monitor Temp 98.7 F Temperature Source Temporal Artery Pulse Oximetry (%) 97 Oxygen Delivery Method room air Intake Accompanied by: Self Is patient in pain?: No Allergies No Known Allergies Allergy (Verified 10/04/22 10:43) Medications aspirin 81 mg tablet,delayed release 81 mg PO DAILY 09/02/18 [History Confirmed 10/04/22] carvedilol 6.25 mg tablet 6.25 mg PO BID 09/02/18 [History Confirmed 10/04/22] cholecalciferol (vitamin D3) 25 mcg (1,000 unit) capsule 1,000 unit PO DAILY 09/02/18 [History Confirmed 10/04/22] ramipril 2.5 mg capsule 2.5 mg PO DAILY 09/02/18 [History Confirmed 10/04/22] atorvastatin 80 mg tablet 80 mg PO QHS 12/15/19 [History Confirmed 10/04/22] omega 3-dha 60 mg-epa 90 mg-fish oil 500 mg capsule, delayed release 1 cap PO DAILY 05/12/20 [History Confirmed 10/04/22] vitamin E 200 unit capsule 200 unit PO DAILY 08/25/20 [History Confirmed 10/04/22] ondansetron HCl 8 mg tablet 8 mg PO Q12H PRN PRN Nausea And Vomiting #60 tabs 08/08/22 [Rx Confirmed 10/04/22] bosutinib 100 mg tablet 200 mg PO DAILY 08/16/22 [History Confirmed 10/04/22] sulfamethoxazole 800 mg-trimethoprim 160 mg tablet (Bactrim DS) 1 tab PO .COMPLEX #36 tabs 08/23/22 [Rx Confirmed 10/04/22] ascorbic acid (vitamin C) 500 mg capsule,extended release 500 mg PO Q12H 09/06/22 [History Confirmed 10/04/22] fluticasone fur. 100 mcg-umeclid 62.5 mcg-vilant 25 mcg inhalat.powder (Trelegy Ellipta) 1 inh inhalation Q24H #60 ea 09/18/22 [Rx Confirmed 10/04/22] Central Venous Access Central Venous Access: No Laboratory Tests 10/04/22 10/04/22 09:56 09:56 WBC 7.3 Hgb 16.0 Plt Count 253 Lymph % (Auto) 17.9 L Absolute Neuts (auto) 4.9 Absolute Lymphs (auto) 1.30 Potassium 4.2 BUN 11 Creatinine 0.96 AST 27 ALT 42 Alkaline Phosphatase 68 Exam Physical Exam Const alert and oriented x3 Constitutional Narrative: ECOG 0-1 General Appearance: cooperative HEENT normocephalic Head and Scalp: normal to inspection Mouth: oral and palatal mucosa normal Eyes conjunctivae normal and no scleral icterus General Eye: normal appearance of both eyes Neck no lymphadenopathy and no JVD Lymph Lymphatic: no lymphadenopathy noted Chest Chest: symmetrical chest wall rise Resp normal respiratory effort and clear to auscultation bilaterally Auscultation: breath sounds absent right (Small right basal pleural effusion) Cardio regular rate, regular rhythm, S1 normal heart sound, S2 normal heart sound and no murmurs Jugular Venous Distention: Negative for JVD GI soft to palpation, non-tender and non-distended; Negative for hepatosplenomegaly no CVA tenderness Back/Spine no thoracic nor lumbar tenderness Extremity no clubbing, cyanosis or edema Skin no rashes or lesions noted Neuro oriented x3, CN's II-XII intact bilaterally, moves all extremities and no focal motor deficits Speech: speech normal Gait (Neuro): normal gait Psych mental status grossly normal Coding Level of Care Code Off vis,est,level 4 Exam Problem Focused Diagnoses Chronic myeloid leukemia C92.10 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, right J90 Assessment and Plan Assessment and Plan (1) Chronic myeloid leukemia: Status: Chronic (2) 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, right: Status: Chronic Plan 62-year-old male who presented with with a mature neutrophilic leukocytosis first noted January 2020, progressively worsening. He has no known chronic inflammatory or infectious diseases. BCR ABL profile with FISH is positive consistent with chronic myeloid leukemia. No palpably enlarged spleen (within limitation of body size and habitus) at diagnosis,13.4 cm by ultrasound. Bone marrow aspirate and biopsy March 2020 confirmed the diagnosis with a q BCR ABL positivity of 96.67% ELTS score 1.4177 (low risk). * Started TKI therapy with dasatinib April 28, 2020, a decline in WBC/ANC is consistent with a hematologic response within the first month of treatment. . Mild elevation of liver enzymes less than 2 fold resolved and an increasing leukopenia with preserved neutrophil count noted at 4 weeks of treatment also resolved with continued standard dosing. He showed a major molecular response (MMR) to treatment , however October 2021 he showed an upward trend in q. BCR ABL but then declined to </= 0.1 (optimal) to rise again in May 2022. Date qBCR-ABL (e13a2/b2a2) 03/30/2020 159.1086 08/10/2020 0.3342 11/10/2020 0.017 02/08/2021 0.031 05/09/2021 0.0626 08/09/2021 0.0559 11/08/2021 0.2603 12/12/2021 NEG 03/22/2022 0.056 06/20/2022 0.1436 * In May [address] of the chest showed no abnormalities. In May 2022 he was noted to have developed bilateral pleural effusions, suspected Dasatinib side effect. He improved after the pleural tap. * June 2022 he was evaluated at [facility] by Dr. Lawton for possible evolving Dasatinib resistance and evaluation was negative. Because of the recurrence of pleural effusions recommendation was to switch from Dasatinib to Bosutinib which he started August 10, 2022. Comorbid conditions: smoker with over 30 pack years cigarettes (started at age 18 averaging 1/2 to 1 pack of cigarettes daily), hypertension, coronary artery disease, cerebrovascular disease and dyslipidemia. Plan: #1-Continue Bosutinib with monitor for toxicity on bi- weekly basis through the 2nd month of therapy. Confirmed adherence and tolerance to therapy. He is not endorsing any s/e. #2-q. BCR/ABL every 3 months. Next to schedule will be in October 2022 #3 -We will follow-up with chest x-ray now being off Dasatinib for eventual resolution of pleural effusion. He is also being followed up in pulmonary clinic. The left effusion resolved and there is residual small right effusion. CXR to be complete before next OV. #4-Continue to follow-up with pulmonary for work-up and management of reactive airways disease. Encouraged to quit smoking. #5-EKG follow-up QTC July and August, normal. Today's EKG is pending. 10/04/22 1301 <Electronically signed by Savi Rodriguez FERMENTER HELPER FERMENTER HELPER-C> Date Savi Rodriguez FERMENTER HELPER FERMENTER HELPER-C Cosigner Signature: Date (if applicable) CC: DO Jocelin Wiseman DO Work Phone: Start: 10-04-2022 End: 10-05-2022 Procedure Note: See Note; NOTES: [facility] Cardiovascular Services [address] [place] [address] 12 Lead EKG 10/04/22 0945 MR#: [id number] Acct: [id number] Name: FREDERIC OVALLES Rep #: [id number] : 1960 62 From: Luke Campbell MD Attending Dr: Dr. 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 Rate : 061 BPM Atrial Rate : 061 BPM P-R Int : 156 ms QRS Dur : 094 ms QT Int : 398 ms P-R-T Axes : -08 -15 013 degrees QTc Int : 400 ms Normal sinus rhythm Normal ECG Confirmed by ELVI HICKS, ANI ([id number]), commercial production editor RULA VAZQUEZ ([id number]) on 10/05/2022 7:03:34 AM Referred By: Sawyer Delgado Confirmed By:BRYANT CAMPBELL MD 10/05/22 0703 Date Luke Campbell MD CC: Dr. Jocelin Saunders DO; Dr. Sawyer Delgado MD Signed Sawyer Delgado Work Phone: Start: 09-20-2022 End: 09-20-2022 Procedure Note: See Note; NOTES: [facility] [place] [address] OFFICE VISIT Date of Service: 09/20/22 1352 MR#: [id number] Acct: [id number] Name: FREDERIC OVALLES Rep #: [id number] : 1960 From: Sawyer Delgado MD Age/Sex: 62/M Location: [facility] – [place] Status: Signed HPI Subjective Date of Service 09/20/22 Chief Complaint Chronic myeloid leukemia on treatment History of Present Illness 62-year-old gentleman with no known chronic inflammatory or infectious diseases referred in consultation because of a persistent leukocytosis. March 2020 peripheral blood BCR ABL by FISH was positive consistent with chronic myeloid leukemia. Bone marrow aspirate and biopsy April 13, 2020: BONE MARROW DIAGNOSIS Bone marrow biopsy, clot and aspiration (specimens A-C): Hypercellular bone marrow. No stainable iron identified. No evidence of lymphoproliferative disorder. See comment. COMMENT Flow cytometry analysis reveals no increased blasts population. However, myeloid elements exhibit aberrant expression of CD56 and show left shift with down-regulation of CD10 and CD16. The findings are compatible with an underlying primary myeloid neoplasm. The flow cytometry analysis report from [facility] is reviewable in the patient???s EMR. BONE MARROW STUDY Slides are reviewed. CBC DATE: 04/13/20 WBC 22.5; RBC 5.33; HGB 15.8; HCT 48.5; MCV 91.0; RDW 48.2; PLTS 206,000 SEGS 54%; LYMPHS 23%; MONOS 11%; EOS 2%; BASOS 0% PERIPHERAL SMEAR: Submitted. RBC: Normochromic, normomorphic WBC: Neutrophilic leukocytosis with slight left shift. PLTS: Normomorphic BONE MARROW ASPIRATE DIFFERENTIAL: 200 cell count. Blasts % (normal 0-2): 2 Promyelocytes % (normal 1-5): 5 Myelocytes and metamyelocytes % (normal 17-41): 38 Bands and Segs % (normal 15-32): 26 Eos % (normal 1-6): 2 Basos % (normal 0-1): 0 Monocytes % (normal 0-4): 2 Erythroid Precursors % (normal 17-35): 18 Lymphocytes % (normal 7-13): 7 Plasma Cells % (normal 0-2): 0 ASPIRATE FINDINGS: Site: Not specified Paucispicular Cellular M/E ratio: Within normal limits (Normal 1.5 - 4.0) Megakaryocytes: Adequate Erythropoiesis: Progressive Granulopoiesis: Normoblastic CORE BIOPSY FINDINGS: Site: Not specified Adequacy: No bone present Cellularity %: Not applicable M/E ratio: Not applicable Blood Only rare marrow cell noted. ASPIRATE CLOT FINDINGS: Site: Not specified Marrow Particles: Many Cellularity %: 80% M/E ratio: Within normal limits Megakaryocytes: Adequate Granuloma(s): 0 Lymphoid aggregate(s): 0 Atypical infiltrate(s): 0 SPECIAL STAINS (with matched controls): Iron: Stainable iron not present Reticulin: Within normal limits PAS: Highlights myeloid elements and megakaryocytes. ADDENDUM FISH BCR/ABL1 REPORT FROM [facility] INTERPRETATION: BCR/ABL gene rearrangement is detected. RESULTS: BCR/ABL1 Normal Nuclei Positive Nuclei with Dual Fusion 3.33% 96.67% CYTOGENETICS REPORT FROM [facility] INTERPRETATION: Abnormal male karyotype was observed in twenty metaphases analyzed. 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 Bosutinib August 10, 2022-. [facility] Medical History Atherosclerosis of coronary artery of [place] heart without angina pectoris Encounter for screening for malignant neoplasm of lung in current smoker with 30 pack year history or greater Essential (primary) hypertension Fatigue Fracture of great toe, right, open Hiatal hernia with GERD History of back problems History of ST elevation myocardial infarction (STEMI) (01/20/17) Hyperlipidemia Leukocytosis Near syncope Nicotine dependence Obesity (BMI 30.0-34.9) 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) 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, right Pneumonia Tobacco use disorder, continuous Unspecified injury of right foot, sequela Surgical History History of bilateral inguinal hernia repair (08/2018) History of bone marrow biopsy (04/13/20) History of coronary artery stent placement (01/20/17) Status post laparoscopic Migue fundoplication (10/15/18) Family History Father Colon cancer Diabetes Heart disease Hypertension CAD (coronary artery disease) Sister Breast cancer Mother CAD (coronary artery disease) Hypertension Heart disease Social History household members: spouse Smoking Status: Current every day smoker tobacco type: cigarettes Tobacco: How many years used: 40 Electronic Cigarette Use: not used second hand exposure: No quit status: considering quitting counseling given: provider counseling alcohol intake: current alcohol intake frequency: a few times a week Alcohol type: beer substance use type: does not use well-balanced diet: about half the time uyen/latter-day: Latter Day seatbelt use: always do you feel safe at home: Yes ROS Constitutional Constitutional: Reports systems reviewed and no addt'l complaints, except as documented; Denies anorexia, fatigue, fever(s), night sweats or weight loss Eyes Eyes: Reports systems reviewed and no addt'l complaints, except as documented ENT HEENT: Reports systems reviewed and no addt'l complaints, except as documented; Denies dysphagia, headache(s), mouth lesions or mucositis Cardiovascular Cardiovascular: Reports systems reviewed and no addt'l complaints, except as documented; Denies chest pain with activity, edema or palpitations Respiratory/Chest Respiratory/Chest: Reports systems reviewed and no addt'l complaints, except as documented and dyspnea on exertion; Denies cough Gastrointestinal Gastrointestinal: Reports systems reviewed and no addt'l complaints, except as documented; Denies change in bowel habits, diarrhea or nausea Genitourinary Genitourinary: Reports systems reviewed and no addt'l complaints, except as documented; Denies dysuria Musculoskeletal Musculoskeletal: Reports systems reviewed and no addt'l complaints, except as documented, back pain and other Details: Chronic back pain unchanged Integumentary Integumentary: Reports systems reviewed and no addt'l complaints, except as documented and dry skin Neurologic Neurologic: Reports systems reviewed and no addt'l complaints, except as documented; Denies headache(s) or weakness Psychiatric Psychiatric: Reports systems reviewed and no addt'l complaints, except as documented and other Details: Dreams, no nightmares Endocrine Endocrinology: Reports systems reviewed and no addt'l complaints, except as documented Hematologic/Lymphatic Hematologic/Lymphatic: Reports systems reviewed and no addt'l complaints, except as documented; Denies easy bleeding or easy bruising Allergic/Immunologic Allergic/Immunologic: Reports systems reviewed and no addt'l complaints, except as documented Intake Vital Signs 08/16/22 13:07 09/20/22 13:53 09/20/22 13:55 Height 6 ft 6 ft 6 ft Weight: 105.8 kg BMI 31.6 BP 123/75 H Blood Pressure Location Lt brachial Position Sitting Respiration 18 Pulse 72 Pulse Source Monitor Temp 98.9 F Temperature Source Temporal Artery Pulse Oximetry (%) 95 Oxygen Delivery Method room air Intake Accompanied by: Self Is patient in pain?: No Allergies No Known Allergies Allergy (Verified 09/20/22 13:52) Medications aspirin 81 mg tablet,delayed release 81 mg PO DAILY 09/02/18 [History Confirmed 09/20/22] carvedilol 6.25 mg tablet 6.25 mg PO BID 09/02/18 [History Confirmed 09/20/22] cholecalciferol (vitamin D3) 25 mcg (1,000 unit) capsule 1,000 unit PO DAILY 09/02/18 [History Confirmed 09/20/22] ramipril 2.5 mg capsule 2.5 mg PO DAILY 09/02/18 [History Confirmed 09/20/22] atorvastatin 80 mg tablet 80 mg PO QHS 12/15/19 [History Confirmed 09/20/22] omega 3-dha 60 mg-epa 90 mg-fish oil 500 mg capsule, delayed release 1 cap PO DAILY 05/12/20 [History Confirmed 09/20/22] vitamin E 200 unit capsule 200 unit PO DAILY 08/25/20 [History Confirmed 09/20/22] ondansetron HCl 8 mg tablet 8 mg PO Q12H PRN PRN Nausea And Vomiting #60 tabs 08/08/22 [Rx Confirmed 09/20/22] bosutinib 100 mg tablet 200 mg PO DAILY 08/16/22 [History Confirmed 09/20/22] sulfamethoxazole 800 mg-trimethoprim 160 mg tablet (Bactrim DS) 1 tab PO .COMPLEX #36 tabs 08/23/22 [Rx Confirmed 09/20/22] ascorbic acid (vitamin C) 500 mg capsule,extended release 500 mg PO Q12H 09/06/22 [History Confirmed 09/20/22] fluticasone fur. 100 mcg-umeclid 62.5 mcg-vilant 25 mcg inhalat.powder (Trelegy Ellipta) 1 inh inhalation Q24H #60 ea 09/18/22 [Rx Confirmed 09/20/22] Central Venous Access Central Venous Access: No CBC, CMP September 20, 2022 reviewed in EMR EKG of August 30, 2022 reviewed in EMR Exam Physical Exam Const alert and oriented x3 Constitutional Narrative: ECOG 0-1 General Appearance: cooperative Nutritional Appearance: overweight HEENT normocephalic Head and Scalp: normal to inspection Mouth: oral and palatal mucosa normal Eyes conjunctivae normal and no scleral icterus General Eye: normal appearance of both eyes Neck no lymphadenopathy and no JVD Lymph Lymphatic: no lymphadenopathy noted Chest Chest: symmetrical chest wall rise Resp normal respiratory effort and clear to auscultation bilaterally Auscultation: breath sounds absent right (Small right basal pleural effusion) Cardio regular rate, regular rhythm, S1 normal heart sound, S2 normal heart sound and no murmurs Jugular Venous Distention: Negative for JVD GI soft to palpation, non-tender and non-distended; Negative for hepatosplenomegaly no CVA tenderness Back/Spine no thoracic nor lumbar tenderness Extremity no clubbing, cyanosis or edema Skin no rashes or lesions noted Neuro oriented x3, CN's II-XII intact bilaterally, moves all extremities and no focal motor deficits Coordination / Balance: [id number]-ta-auhe test normal Speech: speech normal Gait (Neuro): normal gait Psych mental status grossly normal Coding Level of Care Code Off vis,est,level 3 Exam Problem Focused Diagnoses Chronic myeloid leukemia C92.10 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, right J90 Assessment and Plan Assessment and Plan (1) Chronic myeloid leukemia: Status: Chronic (2) 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, right: Status: Chronic Plan 62-year-old male who presented with with a mature neutrophilic leukocytosis first noted January 2020, progressively worsening. He has no known chronic inflammatory or infectious diseases. BCR ABL profile with FISH is positive consistent with chronic myeloid leukemia. No palpably enlarged spleen (within limitation of body size and habitus) at diagnosis,13.4 cm by ultrasound. Bone marrow aspirate and biopsy March 2020 confirmed the diagnosis with a q BCR ABL positivity of 96.67% ELTS score 1.4177 (low risk). * Started TKI therapy with dasatinib April 28, 2020, a decline in WBC/ANC is consistent with a hematologic response within the first month of treatment. . Mild elevation of liver enzymes less than 2 fold resolved and an increasing leukopenia with preserved neutrophil count noted at 4 weeks of treatment also resolved with continued standard dosing. He showed a major molecular response (MMR) to treatment , however October 2021 he showed an upward trend in q. BCR ABL but then declined to </= 0.1 (optimal) to rise again in May 2022. Date qBCR-ABL (e13a2/b2a2) 03/30/2020 159.1086 08/10/2020 0.3342 11/10/2020 0.017 02/08/2021 0.031 05/09/2021 0.0626 08/09/2021 0.0559 11/08/2021 0.2603 12/12/2021 NEG 03/22/2022 0.056 06/20/2022 0.1436 * In May [address] of the chest showed no abnormalities. In May 2022 he was noted to have developed bilateral pleural effusions, suspected Dasatinib side effect. He improved after the pleural tap. * June 2022 he was evaluated at [facility] by Dr. Lawton for possible evolving Dasatinib resistance and evaluation was negative. Because of the recurrence of pleural effusions recommendation was to switch from Dasatinib to Bosutinib which he started August 10, 2022. Comorbid conditions: smoker with over 30 pack years cigarettes (started at age 18 averaging 1/2 to 1 pack of cigarettes daily), hypertension, coronary artery disease, cerebrovascular disease and dyslipidemia. Plan: #1-Continue Bosutinib with monitor for toxicity on bi- weekly basis in the 2nd t month of therapy. #2-q. BCR/ABL every 3 months. Next to schedule will be in October 2022 #3 -We will follow-up with chest x-ray now being off Dasatinib for eventual resolution of pleural effusion. He is also being followed up in pulmonary clinic. The left effusion resolved and there is residual small right effusion. #4-Continue to follow-up with pulmonary for work-up and management of reactive airways disease. Encouraged to quit smoking. #5-EKG follow-up QTC July and August normal. Patient was seen , impression and plan discussed. Sawyer Delgado MD Transit Driver, [facility] Divisions of Medical Oncology Hematology Department of Internal Medicine [place] [id number] This note was generated using a voice recognition system software. Although it was reviewed by the author prior to finalization, it may still contain incorrect words, spelling, and punctuation that were not noted when reviewing prior to saving. If a clinically significant typo or inaccurately typed phrase is noted, please notify the author. 09/20/22 1414 <Electronically signed by Sawyer Delgado MD> Date Sawyer Delgado MD Cosigner Signature: Date (if applicable) CC: Dr. Jocelin Saunders, DO Jocelin Saunders DO Work Phone: Start: 09-06-2022 End: 09-06-2022 Procedure Note: See Note; NOTES: [place] [address] OFFICE VISIT Date of Service: 09/06/22 1049 MR#: [id number] Acct: [id number] Name: FREDERIC OVALLES Rep #: [id number] : 1960 From: Savi Rodriguez NP [employer] -C Age/Sex: 62/M [place] [facility] [place] Status: Signed HPI Subjective Date of Service 09/06/22 Chief Complaint Chronic myeloid leukemia on treatment History of Present Illness 62-year-old gentleman with no known chronic inflammatory or infectious diseases referred in consultation because of a persistent leukocytosis. March 2020 peripheral blood BCR ABL by FISH was positive consistent with chronic myeloid leukemia. Bone marrow aspirate and biopsy April 13, 2020: BONE MARROW DIAGNOSIS Bone marrow biopsy, clot and aspiration (specimens A-C): Hypercellular bone marrow. No stainable iron identified. No evidence of lymphoproliferative disorder. See comment. COMMENT Flow cytometry analysis reveals no increased blasts population. However, myeloid elements exhibit aberrant expression of CD56 and show left shift with down-regulation of CD10 and CD16. The findings are compatible with an underlying primary myeloid neoplasm. The flow cytometry analysis report from [facility] is reviewable in the patient???s EMR. BONE MARROW STUDY Slides are reviewed. CBC DATE: 04/13/20 WBC 22.5; RBC 5.33; HGB 15.8; HCT 48.5; MCV 91.0; RDW 48.2; PLTS 206,000 SEGS 54%; LYMPHS 23%; MONOS 11%; EOS 2%; BASOS 0% PERIPHERAL SMEAR: Submitted. RBC: Normochromic, normomorphic WBC: Neutrophilic leukocytosis with slight left shift. PLTS: Normomorphic BONE MARROW ASPIRATE DIFFERENTIAL: 200 cell count. Blasts % (normal 0-2): 2 Promyelocytes % (normal 1-5): 5 Myelocytes and metamyelocytes % (normal 17-41): 38 Bands and Segs % (normal 15-32): 26 Eos % (normal 1-6): 2 Basos % (normal 0-1): 0 Monocytes % (normal 0-4): 2 Erythroid Precursors % (normal 17-35): 18 Lymphocytes % (normal 7-13): 7 Plasma Cells % (normal 0-2): 0 ASPIRATE FINDINGS: Site: Not specified Paucispicular Cellular M/E ratio: Within normal limits (Normal 1.5 - 4.0) Megakaryocytes: Adequate Erythropoiesis: Progressive Granulopoiesis: Normoblastic CORE BIOPSY FINDINGS: Site: Not specified Adequacy: No bone present Cellularity %: Not applicable M/E ratio: Not applicable Blood Only rare marrow cell noted. ASPIRATE CLOT FINDINGS: Site: Not specified Marrow Particles: Many Cellularity %: 80% M/E ratio: Within normal limits Megakaryocytes: Adequate Granuloma(s): 0 Lymphoid aggregate(s): 0 Atypical infiltrate(s): 0 SPECIAL STAINS (with matched controls): Iron: Stainable iron not present Reticulin: Within normal limits PAS: Highlights myeloid elements and megakaryocytes. ADDENDUM FISH BCR/ABL1 REPORT FROM [facility] INTERPRETATION: BCR/ABL gene rearrangement is detected. RESULTS: BCR/ABL1 Normal Nuclei Positive Nuclei with Dual Fusion 3.33% 96.67% CYTOGENETICS REPORT FROM [facility] INTERPRETATION: Abnormal male karyotype was observed in twenty metaphases analyzed. 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 Bosutinib to August 10, 2022. Interval History The patient is presenting to clinic for a planned weekly follow up. He denies any concerns r/t today's visit. Confirms adherence to oral therapy, Bosulif 400 mg at 6 pm. States "I feel great" citing he was able to get out and do yard work yesterday. Believes that he is tolerating Bosulif better than dasatanib in terms of fatigue. Did have one episode of diarrhea 4 days ago, resolved with 1 dose of loperamide. Specifically denies fever/chills, sweats, headache, dizziness, vision changes, rash, CP, palpitations, abd pain, nausea, swelling/pain of his extremities. Describes appetite as good, PO fluid intake as adequate. [facility] Medical History Atherosclerosis of coronary artery of [place] heart without angina pectoris Encounter for screening for malignant neoplasm of lung in current smoker with 30 pack year history or greater Essential (primary) hypertension Fatigue Fracture of great toe, right, open Hiatal hernia with GERD History of back problems History of ST elevation myocardial infarction (STEMI) (01/20/17) Hyperlipidemia Leukocytosis Near syncope Nicotine dependence Obesity (BMI 30.0-34.9) 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) 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, right Pneumonia Tobacco use disorder, continuous Unspecified injury of right foot, sequela Surgical History History of bilateral inguinal hernia repair (08/2018) History of bone marrow biopsy (04/13/20) History of coronary artery stent placement (01/20/17) Status post laparoscopic Migue fundoplication (10/15/18) Family History Father Colon cancer Diabetes Heart disease Hypertension CAD (coronary artery disease) Sister Breast cancer Mother CAD (coronary artery disease) Hypertension Heart disease Social History household members: spouse Smoking Status: Current every day smoker tobacco type: cigarettes Tobacco: How many years used: 40 Electronic Cigarette Use: not used second hand exposure: No quit status: considering quitting counseling given: provider counseling alcohol intake: current alcohol intake frequency: a few times a week Alcohol type: beer substance use type: does not use well-balanced diet: about half the time uyen/latter-day: Latter Day seatbelt use: always do you feel safe at home: Yes ROS ROS Narrative Negative except as documented in the interval HPI Intake Vital Signs 08/09/22 14:47 09/06/22 09:45 09/06/22 10:49 Height 6 ft 6 ft Weight: 233 lb 8 oz BMI 31.6 BP 124/80 H 121/80 H Blood Pressure Location Rt brachial Position Sitting Respiration 16 Pulse 68 Pulse Source Monitor Temp 98.3 F Temperature Source Temporal Artery Pulse Oximetry (%) 95 Oxygen Delivery Method room air Intake Accompanied by: Self Is patient in pain?: No Allergies No Known Allergies Allergy (Verified 09/06/22 10:49) Medications aspirin 81 mg tablet,delayed release 81 mg PO DAILY 09/02/18 [History Confirmed 09/06/22] carvedilol 6.25 mg tablet 6.25 mg PO BID 09/02/18 [History Confirmed 09/06/22] cholecalciferol (vitamin D3) 25 mcg (1,000 unit) capsule 1,000 unit PO DAILY 09/02/18 [History Confirmed 09/06/22] ramipril 2.5 mg capsule 2.5 mg PO DAILY 09/02/18 [History Confirmed 09/06/22] atorvastatin 80 mg tablet 80 mg PO QHS 12/15/19 [History Confirmed 09/06/22] omega 3-dha 60 mg-epa 90 mg-fish oil 500 mg capsule, delayed release 1 cap PO DAILY 05/12/20 [History Confirmed 09/06/22] vitamin E 200 unit capsule 200 unit PO DAILY 08/25/20 [History Confirmed 09/06/22] ondansetron HCl 8 mg tablet 8 mg PO Q12H PRN PRN Nausea And Vomiting #60 tabs 08/08/22 [Rx Confirmed 09/06/22] bosutinib 100 mg tablet 200 mg PO DAILY 08/16/22 [History Confirmed 09/06/22] sulfamethoxazole 800 mg-trimethoprim 160 mg tablet (Bactrim DS) 1 tab PO .COMPLEX #36 tabs 08/23/22 [Rx Confirmed 09/06/22] ascorbic acid (vitamin C) 500 mg capsule,extended release 500 mg PO Q12H 09/06/22 [History Confirmed 09/06/22] fluticasone fur. 100 mcg-umeclid 62.5 mcg-vilant 25 mcg inhalat.powder (Trelegy Ellipta) 1 inh inhalation Q24H 09/06/22 [History Confirmed 09/06/22] Central Venous Access Central Venous Access: No Vital Signs Blood Pressure 124/80 H 09/06/22 09:45 Laboratory Tests 09/06/22 09/06/22 10:09 10:09 WBC 6.6 Hgb 15.2 Plt Count 233 Absolute Neuts (auto) 4.1 Potassium 3.9 BUN 14 Creatinine 0.92 Calcium 9.0 Phosphorus 2.7 Magnesium 2.1 AST 24 ALT 37 Alkaline Phosphatase 70 Albumin 4.0 Exam Physical Exam Const alert and oriented x3 Constitutional Narrative: ECOG 0-1 Nutritional Appearance: overweight HEENT Head and Scalp: normal to inspection Mouth: oral and palatal mucosa normal Eyes conjunctivae normal and no scleral icterus General Eye: normal appearance of both eyes Neck no lymphadenopathy and no JVD Lymph Lymphatic: no lymphadenopathy noted Chest Chest: symmetrical chest wall rise Resp normal respiratory effort and clear to auscultation bilaterally Auscultation: breath sounds absent right (Small right basal pleural effusion) Cardio regular rate, regular rhythm, S1 normal heart sound and S2 normal heart sound Jugular Venous Distention: Negative for JVD GI soft to palpation, non-tender and non-distended; Negative for hepatosplenomegaly no CVA tenderness Back/Spine no thoracic nor lumbar tenderness Extremity no clubbing, cyanosis or edema Skin no rashes or lesions noted Neuro oriented x3, CN's II-XII intact bilaterally, moves all extremities and no focal motor deficits Speech: speech normal Gait (Neuro): normal gait Psych mental status grossly normal Coding Level of Care Code Off vis,est,level 3 Exam Problem Focused Diagnoses Chronic myeloid leukemia C92.10 Bilateral pleural effusion J90 Assessment and Plan Assessment and Plan (1) Chronic myeloid leukemia: Status: Chronic (2) Bilateral pleural effusion: Status: Inactive Medications: New xwdmyxzxdsa-vhubevnjz-ydedrzgc 100-62.5-25 mcg (Trelegy Ellipta) 1 inh inhalation Q24H Plan 62-year-old male who presented with with a mature neutrophilic leukocytosis first noted January 2020, progressively worsening. He has no known chronic inflammatory or infectious diseases. BCR ABL profile with FISH is positive consistent with chronic myeloid leukemia. No palpably enlarged spleen (within limitation of body size and habitus) at diagnosis,13.4 cm by ultrasound. Bone marrow aspirate and biopsy March 2020 confirmed the diagnosis with a q BCR ABL positivity of 96.67% ELTS score 1.4177 (low risk). * Started TKI therapy with dasatinib April 28, 2020, a decline in WBC/ANC is consistent with a hematologic response within the first month of treatment. . Mild elevation of liver enzymes less than 2 fold resolved and an increasing leukopenia with preserved neutrophil count noted at 4 weeks of treatment also resolved with continued standard dosing. He showed a major molecular response (MMR) to treatment , however October 2021 he showed an upward trend in q. BCR ABL but then declined to </= 0.1 (optimal) to rise again in May 2022. Date qBCR-ABL (e13a2/b2a2) 03/30/2020 159.1086 08/10/2020 0.3342 11/10/2020 0.017 02/08/2021 0.031 05/09/2021 0.0626 08/09/2021 0.0559 11/08/2021 0.2603 12/12/2021 NEG 03/22/2022 0.056 06/20/2022 0.1436 * In May [address] of the chest showed no abnormalities. In May 2022 he was noted to have developed bilateral pleural effusions, suspected Dasatinib side effect. He improved after the pleural tap. June 2022 he was evaluated at [facility] by Dr. Lawton for possible evolving Dasatinib resistance and evaluation was negative. Because of the recurrence of pleural effusions recommendation was to switch from Dasatinib to Bosutinib which he started August 10, 2022. Comorbid conditions: smoker with over 30 pack years cigarettes (started at age 18 averaging 1/2 to 1 pack of cigarettes daily), hypertension, coronary artery disease, cerebrovascular disease and dysl ipidemia. Plan: #1-Continue Bosutinib with monitor for toxicity on a biweekly basis now moving into the second month of therapy. Overall tolerating well. Labs are reviewed with the patient. Confirmed adherence to oral therapy. #2-q. BCR/ABL every 3 months. #3 -Continue to follow-up with pulmonary for work-up and management of reactive airways disease. Encouraged to quit smoking. There is residual small right effusion. RTO on 09/20/22 labs prior. 09/06/22 1121 <Electronically signed by Savi MONTALVO> Date Savi MONTALVO Cosigner Signature: Date (if applicable) CC: Dr. Jocelin aSunders, DO Jocelin Saunders DO Work Phone: Start: 08-30-2022 End: 08-30-2022 Procedure Note: See Note; NOTES: [facility] [address] [place] [id number] OFFICE VISIT Date of Service: 08/30/22 1254 MR#: [id number] Acct: [id number] Name: FREDERIC OVALLES Rep #: [id number] : 1960 From: Sawyer Delgado MD Age/Sex: 62/M Location: [facility] – [place] Status: Signed HPI Subjective Date of Service 08/30/22 Chief Complaint Chronic myeloid leukemia on treatment History of Present Illness 62-year-old gentleman with no known chronic inflammatory or infectious diseases referred in consultation because of a persistent leukocytosis. March 2020 peripheral blood BCR ABL by FISH was positive consistent with chronic myeloid leukemia. Bone marrow aspirate and biopsy April 13, 2020: BONE MARROW DIAGNOSIS Bone marrow biopsy, clot and aspiration (specimens A-C): Hypercellular bone marrow. No stainable iron identified. No evidence of lymphoproliferative disorder. See comment. COMMENT Flow cytometry analysis reveals no increased blasts population. However, myeloid elements exhibit aberrant expression of CD56 and show left shift with down-regulation of CD10 and CD16. The findings are compatible with an underlying primary myeloid neoplasm. The flow cytometry analysis report from [facility] is reviewable in the patient???s EMR. BONE MARROW STUDY Slides are reviewed. CBC DATE: 04/13/20 WBC 22.5; RBC 5.33; HGB 15.8; HCT 48.5; MCV 91.0; RDW 48.2; PLTS 206,000 SEGS 54%; LYMPHS 23%; MONOS 11%; EOS 2%; BASOS 0% PERIPHERAL SMEAR: Submitted. RBC: Normochromic, normomorphic WBC: Neutrophilic leukocytosis with slight left shift. PLTS: Normomorphic BONE MARROW ASPIRATE DIFFERENTIAL: 200 cell count. Blasts % (normal 0-2): 2 Promyelocytes % (normal 1-5): 5 Myelocytes and metamyelocytes % (normal 17-41): 38 Bands and Segs % (normal 15-32): 26 Eos % (normal 1-6): 2 Basos % (normal 0-1): 0 Monocytes % (normal 0-4): 2 Erythroid Precursors % (normal 17-35): 18 Lymphocytes % (normal 7-13): 7 Plasma Cells % (normal 0-2): 0 ASPIRATE FINDINGS: Site: Not specified Paucispicular Cellular M/E ratio: Within normal limits (Normal 1.5 - 4.0) Megakaryocytes: Adequate Erythropoiesis: Progressive Granulopoiesis: Normoblastic CORE BIOPSY FINDINGS: Site: Not specified Adequacy: No bone present Cellularity %: Not applicable M/E ratio: Not applicable Blood Only rare marrow cell noted. ASPIRATE CLOT FINDINGS: Site: Not specified Marrow Particles: Many Cellularity %: 80% M/E ratio: Within normal limits Megakaryocytes: Adequate Granuloma(s): 0 Lymphoid aggregate(s): 0 Atypical infiltrate(s): 0 SPECIAL STAINS (with matched controls): Iron: Stainable iron not present Reticulin: Within normal limits PAS: Highlights myeloid elements and megakaryocytes. ADDENDUM FISH BCR/ABL1 REPORT FROM [facility] INTERPRETATION: BCR/ABL gene rearrangement is detected. RESULTS: BCR/ABL1 Normal Nuclei Positive Nuclei with Dual Fusion 3.33% 96.67% CYTOGENETICS REPORT FROM [facility] INTERPRETATION: Abnormal male karyotype was observed in twenty metaphases analyzed. 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 Bosutinib to August 10, 2022. [facility] Medical History (Updated 08/30/22 @ 13:[address] Sawyer Delgado MD) Atherosclerosis of coronary artery of [place] heart without angina pectoris Encounter for screening for malignant neoplasm of lung in current smoker with 30 pack year history or greater Essential (primary) hypertension Fatigue Fracture of great toe, right, open Hiatal hernia with GERD History of back problems History of ST elevation myocardial infarction (STEMI) (01/20/17) Hyperlipidemia Leukocytosis Near syncope Nicotine dependence Obesity (BMI 30.0-34.9) 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) 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, right Pneumonia Tobacco use disorder, continuous Unspecified injury of right foot, sequela Surgical History History of bilateral inguinal hernia repair (08/2018) History of bone marrow biopsy (04/13/20) History of coronary artery stent placement (01/20/17) Status post laparoscopic Migue fundoplication (10/15/18) Family History Father Colon cancer Diabetes Heart disease Hypertension CAD (coronary artery disease) Sister Breast cancer Mother CAD (coronary artery disease) Hypertension Heart disease Social History household members: spouse Smoking Status: Current every day smoker tobacco type: cigarettes Tobacco: How many years used: 40 Electronic Cigarette Use: not used second hand exposure: No quit status: considering quitting counseling given: provider counseling alcohol intake: current alcohol intake frequency: a few times a week Alcohol type: beer substance use type: does not use well-balanced diet: about half the time uyen/latter-day: Latter Day seatbelt use: always do you feel safe at home: Yes ROS Constitutional Constitutional: Reports systems reviewed and no addt'l complaints, except as documented; Denies anorexia, fatigue, fever(s), night sweats or weight loss Eyes Eyes: Reports systems reviewed and no addt'l complaints, except as documented ENT HEENT: Reports systems reviewed and no addt'l complaints, except as documented; Denies dysphagia, headache(s), mouth lesions or mucositis Cardiovascular Cardiovascular: Reports systems reviewed and no addt'l complaints, except as documented; Denies chest pain with activity, edema or palpitations Respiratory/Chest Respiratory/Chest: Reports systems reviewed and no addt'l complaints, except as documented and dyspnea on exertion; Denies cough Gastrointestinal Gastrointestinal: Reports systems reviewed and no addt'l complaints, except as documented, change in bowel habits, diarrhea, nausea and other Details: Diarrhea developed in the first week of therapy, mild, controlled with Imodium averaging 1 tablet every few days Single episode of nausea when he started the new tablets, resolved with ondansetron and has not needed to use it any further Genitourinary Genitourinary: Reports systems reviewed and no addt'l complaints, except as documented; Denies dysuria Musculoskeletal Musculoskeletal: Reports systems reviewed and no addt'l complaints, except as documented, back pain and other Details: Chronic back pain unchanged Integumentary Integumentary: Reports systems reviewed and no addt'l complaints, except as documented and dry skin Neurologic Neurologic: Reports systems reviewed and no addt'l complaints, except as documented; Denies headache(s) or weakness Psychiatric Psychiatric: Reports systems reviewed and no addt'l complaints, except as documented Endocrine Endocrinology: Reports systems reviewed and no addt'l complaints, except as documented Hematologic/Lymphatic Hematologic/Lymphatic: Reports systems reviewed and no addt'l complaints, except as documented; Denies easy bleeding or easy bruising Allergic/Immunologic Allergic/Immunologic: Reports systems reviewed and no addt'l complaints, except as documented Intake Vital Signs 08/09/22 14:47 08/30/22 12:54 08/30/22 12:56 Height 6 ft 6 ft 6 ft Weight: 106.197 kg BMI 31.7 BP 129/76 H Blood Pressure Location Rt brachial Position Sitting Respiration 18 Pulse 70 Pulse Source Monitor Temp 98.7 F Temperature Source Temporal Artery Pulse Oximetry (%) 94 Oxygen Delivery Method room air Intake Accompanied by: Self Is patient in pain?: Yes (chronic back pain) Allergies No Known Allergies Allergy (Verified 08/30/22 12:56) Medications aspirin 81 mg tablet,delayed release 81 mg PO DAILY 09/02/18 [History Confirmed 08/30/22] carvedilol 6.25 mg tablet 6.25 mg PO BID 09/02/18 [History Confirmed 08/30/22] cholecalciferol (vitamin D3) 25 mcg (1,000 unit) capsule 1,000 unit PO DAILY 09/02/18 [History Confirmed 08/30/22] ramipril 2.5 mg capsule 2.5 mg PO DAILY 09/02/18 [History Confirmed 08/30/22] atorvastatin 80 mg tablet 80 mg PO QHS 12/15/19 [History Confirmed 08/30/22] ascorbic acid (vitamin C) 1,000 mg tablet 1,000 mg PO DAILY 04/05/20 [History Confirmed 08/30/22] omega 3-dha 60 mg-epa 90 mg-fish oil 500 mg capsule, delayed release 1 cap PO DAILY 05/12/20 [History Confirmed 08/30/22] vitamin E 200 unit capsule 200 unit PO DAILY 08/25/20 [History Confirmed 08/30/22] ondansetron HCl 8 mg tablet 8 mg PO Q12H PRN PRN Nausea And Vomiting #60 tabs 08/08/22 [Rx Confirmed 08/30/22] bosutinib 100 mg tablet 200 mg PO DAILY 08/16/22 [History Confirmed 08/30/22] fluticasone fur. 100 mcg-umeclid 62.5 mcg-vilant 25 mcg inhalat.powder (Trelegy Ellipta) 1 inh inhalation DAILY #60 ea 08/20/22 [Rx Confirmed 08/30/22] sulfamethoxazole 800 mg-trimethoprim 160 mg tablet (Bactrim DS) 1 tab PO .COMPLEX #36 tabs 08/23/22 [Rx Confirmed 08/30/22] Central Venous Access Central Venous Access: No CBC, CMP August 30, 2022 reviewed in EMR Exam Physical Exam Const alert and oriented x3 Constitutional Narrative: ECOG 0-1 General Appearance: cooperative Nutritional Appearance: overweight HEENT normocephalic Head and Scalp: normal to inspection Mouth: oral and palatal mucosa normal Eyes conjunctivae normal and no scleral icterus General Eye: normal appearance of both eyes Neck no lymphadenopathy and no JVD Lymph Lymphatic: no lymphadenopathy noted Chest Chest: symmetrical chest wall rise Resp normal respiratory effort and clear to auscultation bilaterally Auscultation: breath sounds absent right (Small right basal pleural effusion) Cardio regular rate, regular rhythm, S1 normal heart sound, S2 normal heart sound and no murmurs Jugular Venous Distention: Negative for JVD GI soft to palpation, non-tender and non-distended; Negative for hepatosplenomegaly no CVA tenderness Back/Spine no thoracic nor lumbar tenderness Extremity no clubbing, cyanosis or edema Skin no rashes or lesions noted Neuro oriented x3, CN's II-XII intact bilaterally, moves all extremities and no focal motor deficits Coordination / Balance: udtalv-vi-fizn test normal Speech: speech normal Gait (Neuro): normal gait Psych mental status grossly normal Coding Level of Care Code Off vis,est,level 3 Exam Problem Focused Diagnoses Chronic myeloid leukemia C92.10 Bilateral pleural effusion J90 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, right J90 Assessment and Plan Assessment and Plan (1) Chronic myeloid leukemia: Status: Chronic (2) Bilateral pleural effusion: Status: Inactive (3) 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, right: Status: Chronic Plan 62-year-old male who presented with with a mature neutrophilic leukocytosis first noted January 2020, progressively worsening. He has no known chronic inflammatory or infectious diseases. BCR ABL profile with FISH is positive consistent with chronic myeloid leukemia. No palpably enlarged spleen (within limitation of body size and habitus) at diagnosis,13.4 cm by ultrasound. Bone marrow aspirate and biopsy March 2020 confirmed the diagnosis with a q BCR ABL positivity of 96.67% ELTS score 1.4177 (low risk). * Started TKI therapy with dasatinib April 28, 2020, a decline in WBC/ANC is consistent with a hematologic response within the first month of treatment. . Mild elevation of liver enzymes less than 2 fold resolved and an increasing leukopenia with preserved neutrophil count noted at 4 weeks of treatment also resolved with continued standard dosing. He showed a major molecular response (MMR) to treatment , however October 2021 he showed an upward trend in q. BCR ABL but then declined to </= 0.1 (optimal) to rise again in May 2022. Date qBCR-ABL (e13a2/b2a2) 03/30/2020 159.1086 08/10/2020 0.3342 11/10/2020 0.017 02/08/2021 0.031 05/09/2021 0.0626 08/09/2021 0.0559 11/08/2021 0.2603 12/12/2021 NEG 03/22/2022 0.056 06/20/2022 0.1436 * In May [address] of the chest showed no abnormalities. In May 2022 he was noted to have developed bilateral pleural effusions, suspected Dasatinib side effect. He improved after the pleural tap. June 2022 he was evaluated at [facility] by Dr. Lawton for possible evolving Dasatinib resistance and evaluation was negative. Because of the recurrence of pleural effusions recommendation was to switch from Dasatinib to Bosutinib which he started August 10, 2022. Comorbid conditions: smoker with over 30 pack years cigarettes (started at age 18 averaging 1/2 to 1 pack of cigarettes daily), hypertension, coronary artery disease, cerebrovascular disease and dyslipidemia. Plan: #1-Continue Bosutinib with monitor for toxicity on a weekly basis in the first month of therapy. #2-q. BCR/ABL every 3 months. #3 -We will follow-up with chest x-ray now being off Dasatinib for eventual resolution of pleural effusion. He is also being followed up in pulmonary clinic. The left effusion resolved and there is residual small right effusion. #4-Continue to follow-up with pulmonary for work-up and management of reactive airways disease. Encouraged to quit smoking. #5-EKG follow-up QTC August 16, 2022 is normal at 413 ms ; August 30, 2022 is pending. Patient was seen , impression and plan discussed. Sawyer Delgado MD Transit Driver, [facility] Divisions of Medical Oncology Hematology Department of Internal Medicine [place] [id number] This note was generated using a voice recognition system software. Although it was reviewed by the author prior to finalization, it may still contain incorrect words, spelling, and punctuation that were not noted when reviewing prior to saving. If a clinically significant typo or inaccurately typed phrase is noted, please notify the author. 08/30/22 1343 <Electronically signed by Sawyer Delgado MD> Date Sawyer Delgado MD [facility] Signature: Date (if applicable) CC: Jocelin Saunders DO Work Phone: Start: 08-30-2022 End: 08-31-2022 Procedure Note: See Note; NOTES: [facility] Cardiovascular Services [address] [place] [address] 12 Lead EKG 08/30/22 1158 MR#: [id number] Acct: [id number] Name: FREDERIC OVALLES Rep #: [id number] : 1960 62 From: Luke Campbell MD Attending Dr: Dr. Sawyer Delgado MD Status: [facility] Ordering Dr: Sawyer Delgado MD Date: 08/30/22 Location: [facility] Sex: M C Admitted: Test Reason : THERAPUTIC DRUG LEVE Blood Pressure : / mmHG Vent. Rate : 066 BPM Atrial Rate : 066 BPM P-R Int : 166 ms QRS Dur : 098 ms QT Int : 392 ms P-R-T Axes : 012 -11 017 degrees QTc Int : 410 ms Normal sinus rhythm Normal ECG Confirmed by ELVI HICKS, ANI ([id number]), commercial production editor RULA VAZQUEZ ([id number]) on 08/31/2022 12:59:19 PM Referred By: DANNY Confirmed By:BRYANT CAMPBELL MD 08/31/22 1259 Date Luke Campbell MD CC: Dr. Jocelin Saunders DO; Dr. Sawyer Delgado MD Signed Sawyer Delgado Work Phone: Start: 08-23-2022 End: 08-23-2022 Procedure Note: See Note; NOTES: [facility] [place] [address] OFFICE VISIT Date of Service: 08/23/22 1043 MR#: [id number] Acct: [id number] Name: FREDERIC OVALLES Rep #: [id number] : 1960 From: Savi Rodriguez NP FERMENTER HELPER -C Age/Sex: 62/M Location: [facility] [place] Status: Signed HPI Subjective Date of Service 08/23/22 Chief Complaint Chronic myeloid leukemia on treatment History of Present Illness 62-year-old gentleman with no known chronic inflammatory or infectious diseases referred in consultation because of a persistent leukocytosis. March 2020 peripheral blood BCR ABL by FISH was positive consistent with chronic myeloid leukemia. Bone marrow aspirate and biopsy April 13, 2020: BONE MARROW DIAGNOSIS Bone marrow biopsy, clot and aspiration (specimens A-C): Hypercellular bone marrow. No stainable iron identified. No evidence of lymphoproliferative disorder. See comment. COMMENT Flow cytometry analysis reveals no increased blasts population. However, myeloid elements exhibit aberrant expression of CD56 and show left shift with down-regulation of CD10 and CD16. The findings are compatible with an underlying primary myeloid neoplasm. The flow cytometry analysis report from [facility] is reviewable in the patient???s EMR. BONE MARROW STUDY Slides are reviewed. CBC DATE: 04/13/20 WBC 22.5; RBC 5.33; HGB 15.8; HCT 48.5; MCV 91.0; RDW 48.2; PLTS 206,000 SEGS 54%; LYMPHS 23%; MONOS 11%; EOS 2%; BASOS 0% PERIPHERAL SMEAR: Submitted. RBC: Normochromic, normomorphic WBC: Neutrophilic leukocytosis with slight left shift. PLTS: Normomorphic BONE MARROW ASPIRATE DIFFERENTIAL: 200 cell count. Blasts % (normal 0-2): 2 Promyelocytes % (normal 1-5): 5 Myelocytes and metamyelocytes % (normal 17-41): 38 Bands and Segs % (normal 15-32): 26 Eos % (normal 1-6): 2 Basos % (normal 0-1): 0 Monocytes % (normal 0-4): 2 Erythroid Precursors % (normal 17-35): 18 Lymphocytes % (normal 7-13): 7 Plasma Cells % (normal 0-2): 0 ASPIRATE FINDINGS: Site: Not specified Paucispicular Cellular M/E ratio: Within normal limits (Normal 1.5 - 4.0) Megakaryocytes: Adequate Erythropoiesis: Progressive Granulopoiesis: Normoblastic CORE BIOPSY FINDINGS: Site: Not specified Adequacy: No bone present Cellularity %: Not applicable M/E ratio: Not applicable Blood Only rare marrow cell noted. ASPIRATE CLOT FINDINGS: Site: Not specified Marrow Particles: Many Cellularity %: 80% M/E ratio: Within normal limits Megakaryocytes: Adequate Granuloma(s): 0 Lymphoid aggregate(s): 0 Atypical infiltrate(s): 0 SPECIAL STAINS (with matched controls): Iron: Stainable iron not present Reticulin: Within normal limits PAS: Highlights myeloid elements and megakaryocytes. ADDENDUM FISH BCR/ABL1 REPORT FROM [facility] INTERPRETATION: BCR/ABL gene rearrangement is detected. RESULTS: BCR/ABL1 Normal Nuclei Positive Nuclei with Dual Fusion 3.33% 96.67% CYTOGENETICS REPORT FROM [facility] INTERPRETATION: Abnormal male karyotype was observed in twenty metaphases analyzed. 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 Bosutinib to August 10, 2022. Interval History The patient is presenting to clinic for a planned one week follow up. He began Bosulif 400 mg on 08/10/22 (pills provided by [facility] repository medication bank). Confirms adherence to treatment, taking consistently at 6 pm. Received 30-day rx via [employer] from specialty pharmacy on 08/22/22. C/o watery stools daily, has required loperamide daily. Began approx 3 days into starting TKI. Has not exceeded 2 episodes in a day, well controlled with the loperamide. [place] foods exacerbate diarrhea. Has been experiencing frontal headaches, predates Bosilif. States "the headaches seem to be better", less often and less severe. Appetite good, PO fluid intake likely adequate. Specifically denies fever/chills, sweats, dizziness, CP, palpitations, abd pain, swelling/pain of his extremities, overt bleeding/abnormal bruising. Exertional dyspnea unchanged. Met with pulmonology, Dr. Brooks last week and inhaled medications changed. [facility] Medical History Atherosclerosis of coronary artery of [place] heart without angina pectoris Encounter for screening for malignant neoplasm of lung in current smoker with 30 pack year history or greater Essential (primary) hypertension Fatigue Fracture of great toe, right, open Hiatal hernia with GERD History of back problems History of ST elevation myocardial infarction (STEMI) (01/20/17) Hyperlipidemia Leukocytosis Near syncope Nicotine dependence Obesity (BMI 30.0-34.9) 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) Pneumonia Tobacco use disorder, continuous Unspecified injury of right foot, sequela Surgical History History of bilateral inguinal hernia repair (08/2018) History of bone marrow biopsy (04/13/20) History of coronary artery stent placement (01/20/17) Status post laparoscopic Migue fundoplication (10/15/18) Family History Father Colon cancer Diabetes Heart disease Hypertension CAD (coronary artery disease) Sister Breast cancer Mother CAD (coronary artery disease) Hypertension Heart disease Social History household members: spouse Smoking Status: Current every day smoker tobacco type: cigarettes Tobacco: How many years used: 40 Electronic Cigarette Use: not used second hand exposure: No quit status: considering quitting counseling given: provider counseling alcohol intake: current alcohol intake frequency: a few times a week Alcohol type: beer substance use type: does not use well-balanced diet: about half the time uyen/latter-day: Latter Day seatbelt use: always do you feel safe at home: Yes ROS ROS Narrative Negative except as documented in the interval HPI Intake Vital Signs 08/09/22 14:47 08/23/22 10:45 08/23/22 10:47 Height 6 ft 6 ft 6 ft Weight: 231 lb 1 oz BMI 31.3 BP 129/78 H Blood Pressure Location Lt brachial Position Sitting Respiration 16 Pulse 65 Pulse Source Monitor Temp 97.8 F Temperature Source Temporal Artery Pulse Oximetry (%) 96 Oxygen Delivery Method room air Intake Accompanied by: Self Is patient in pain?: No Allergies No Known Allergies Allergy (Verified 08/20/22 09:05) Medications aspirin 81 mg tablet,delayed release 81 mg PO DAILY 09/02/18 [History Confirmed 08/23/22] carvedilol 6.25 mg tablet 6.25 mg PO BID 09/02/18 [History Confirmed 08/23/22] cholecalciferol (vitamin D3) 25 mcg (1,000 unit) capsule 1,000 unit PO DAILY 09/02/18 [History Confirmed 08/23/22] ramipril 2.5 mg capsule 2.5 mg PO DAILY 09/02/18 [History Confirmed 08/23/22] atorvastatin 80 mg tablet 80 mg PO QHS 12/15/19 [History Confirmed 08/23/22] ascorbic acid (vitamin C) 1,000 mg tablet 1,000 mg PO DAILY 04/05/20 [History Confirmed 08/23/22] omega 3-dha 60 mg-epa 90 mg-fish oil 500 mg capsule, delayed release 1 cap PO DAILY 05/12/20 [History Confirmed 08/23/22] vitamin E 200 unit capsule 200 unit PO DAILY 08/25/20 [History Confirmed 08/23/22] ondansetron HCl 8 mg tablet 8 mg PO Q12H PRN PRN Nausea And Vomiting #60 tabs 08/08/22 [Rx Confirmed 08/23/22] bosutinib 100 mg tablet 200 mg PO DAILY 08/16/22 [History Confirmed 08/23/22] fluticasone fur. 100 mcg-umeclid 62.5 mcg-vilant 25 mcg inhalat.powder (Trelegy Ellipta) 1 inh inhalation DAILY #60 ea 08/20/22 [Rx Confirmed 08/23/22] sulfamethoxazole 800 mg-trimethoprim 160 mg tablet (Bactrim DS) 1 tab PO .COMPLEX #36 tabs 08/23/22 [Rx Confirmed 08/23/22] Central Venous Access Central Venous Access: No Laboratory Tests 08/23/22 08/23/22 10:01 10:01 WBC 7.3 Hgb 16.2 Plt Count 230 Absolute Neuts (auto) 4.9 Potassium 3.9 BUN 10 Creatinine 1.02 Glucose 155 H AST 22 ALT 26 Alkaline Phosphatase 82 Albumin 4.3 Exam Physical Exam Const alert and oriented x3 Constitutional Narrative: ECOG 0-1 Nutritional Appearance: overweight HEENT normocephalic Head and Scalp: normal to inspection Mouth: oral and palatal mucosa normal Eyes conjunctivae normal and no scleral icterus General Eye: normal appearance of both eyes Neck no lymphadenopathy and no JVD Lymph Lymphatic: no lymphadenopathy noted Chest Chest: symmetrical chest wall rise Resp normal respiratory effort and clear to auscultation bilaterally Auscultation: breath sounds absent right (Small right basal pleural effusion) Cardio regular rate, regular rhythm, S1 normal heart sound, S2 normal heart sound and no murmurs Jugular Venous Distention: Negative for JVD GI soft to palpation, non-tender and non-distended; Negative for hepatosplenomegaly no CVA tenderness Back/Spine no thoracic nor lumbar tenderness Extremity no clubbing, cyanosis or edema Skin no rashes or lesions noted Neuro oriented x3, moves all extremities and no focal motor deficits Speech: speech normal Gait (Neuro): normal gait Psych mental status grossly normal Coding Level of Care Code Off vis,est,level 4 Exam Problem Focused Diagnoses Chronic myeloid leukemia C92.10 Bilateral pleural effusion J90 Assessment and Plan Assessment and Plan (1) Chronic myeloid leukemia: Status: Chronic (2) Bilateral pleural effusion: Status: Inactive Medications: New sulfamethoxazole-trimethoprim 800-160 mg (Bactrim DS) 1 TAB orally daily on Mondays, wednesdays and Fridays only; 36 tabs 1RF C92.10 - Chronic myeloid leukemia, BCR/ABL-positive, not having achieved remission Plan 62-year-old male who presented with with a mature neutrophilic leukocytosis first noted January 2020, progressively worsening. He has no known chronic inflammatory or infectious diseases. BCR ABL profile with FISH is positive consistent with chronic myeloid leukemia. No palpably enlarged spleen (within limitation of body size and habitus) at diagnosis,13.4 cm by ultrasound. Bone marrow aspirate and biopsy March 2020 confirmed the diagnosis with a q BCR ABL positivity of 96.67% ELTS score 1.4177 (low risk). * Started TKI therapy with dasatinib April 28, 2020, a decline in WBC/ANC is consistent with a hematologic response within the first month of treatment. . Mild elevation of liver enzymes less than 2 fold resolved and an increasing leukopenia with preserved neutrophil count noted at 4 weeks of treatment also resolved with continued standard dos ing. He showed a major molecular response (MMR) to treatment , however October 2021 he showed an upward trend in q. BCR ABL but then declined to </= 0.1 (optimal) to rise again in May 2022. Date qBCR-ABL (e13a2/b2a2) 03/30/2020 159.1086 08/10/2020 0.3342 11/10/2020 0.017 02/08/2021 0.031 05/09/2021 0.0626 08/09/2021 0.0559 11/08/2021 0.2603 12/12/2021 NEG 03/22/2022 0.056 06/20/2022 0.1436 * In May [address] of the chest showed no abnormalities. In May 2022 he was noted to have developed bilateral pleural effusions, suspected Dasatinib side effect. He improved after the pleural tap. June 2022 he was evaluated at [facility] by Dr. Lawton for possible evolving Dasatinib resistance and evaluation was negative. Because of the recurrence of pleural effusions recommendation was to switch from Dasatinib to Bosutinib which he started August 10, 2022. Comorbid conditions: smoker with over 30 pack years cigarettes (started at age 18 averaging 1/2 to 1 pack of cigarettes daily), hypertension, coronary artery disease, cerebrovascular disease and dyslipidemia. Plan: #1-Continue Bosutinib with monitor for toxicity on a weekly basis in the first month of therapy. From adherence to oral therapy. Patient did receive 30-day supply of medication in the mail yesterday. Labs reviewed with patient. No cytopenias, electrolyte abnormalities, LFTs and creatinine within normal limits. He is otherwise not endorsing any signs or symptoms of toxicity to TKI at this time. We will provide Rx for Bactrim Saturday for PCP prophylaxis. He will continue to have chemistries drawn once a week through October 04???on ramipril will monitor potassium level. #2-q. BCR/ABL every 3 months. #3 continue to follow-up with pulmonary for work-up and management of reactive airways disease. Encouraged to quit smoking. #4-EKG follow-up QTC August 16, 2022 and in 2 weeks 08/23/22 1139 <Electronically signed by Savi Rodriguez FERMENTER HELPER FERMENTER HELPER-C> Date Savi UngerMichael FERMENTER HELPER FERMENTER HELPER-C Cosigner Signature: Date (if applicable) CC: Dr. Jocelin Saunders, DO Jocelin Saunders DO Work Phone: Start: 08-20-2022 End: 08-20-2022 Procedure Note: See Note; NOTES: [facility] [place] [address] [place] [address] OFFICE VISIT Date of Service: 08/20/22 MR#: [id number] Acct: [id number] Name: FREDERIC OVALLES Rep #: [id number] : 1960 Provider: Dr. John Brooks DO Age/Sex: 62/M Location: [facility] – [place].[facility] Status: Signed Assessment and Plan Assessment and Plan (1) Mixed obstructive and restrictive ventilatory defect: Status: Acute Plan: The patient's most recent pulmonary function studies demonstrated a partially reversible severe mixed ventilatory defect with preserved diffusing capacity. The patient is currently utilizing Flovent with minimal symptom improvement. Based on the results of his PFTs, I am going to provide the patient with a sample of Trelegy Ellipta, as I feel that he would benefit more from being on long-acting bronchodilator therapy. I have asked that the patient follow-up in approximately 3 months to reassess his symptom response to therapy. (2) Nicotine dependence, cigarettes, uncomplicated: Status: Acute Plan: Tobacco cessation counseling was provided. (3) 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: Status: Acute Plan: Most likely secondary to Dasatinib utilization. The medication has been subsequently discontinued. Recommend ongoing chest imaging studies to document resolution of his pleural effusion. If unresolving, the patient may require an additional thoracentesis. Medications: New ysftsikjzkv-onmiukhwp-aegzvwyz 100-62.5-25 mcg (Trelegy Ellipta) 1 inh inhalation DAILY 60 ea 3RF Discontinued fluticasone propionate 110 mcg/actuation Discontinued Reason: Order Changed 1 puff inhalation BID Plan Details Follow Up: 3 Months HPI HPI Comments Details: The patient is a 62-year-old male who presents to the clinic today for a routine scheduled follow-up office visit. If you recall, the patient initially presented to our office for evaluation in June 2022. The patient reported that he had been experiencing shortness of breath since May 2022. At that time, the patient was evaluated in the emergency department and was noted to have bilateral pleural effusions. He ultimately underwent an ultrasound-guided thoracentesis of the right hemithorax with 1.9 L of fluid removed on June 04. The fluid itself was lymphocyte predominant. Cytology was consistent with a lymphocytic effusion, which was negative for malignant cells. The patient is currently being treated for CML by Dr. Delgado. There has been some concern that the patient's Dasatinib could potentially be causing the pleural effusion. The patient does have an approximate 94-[id number]-ybfu smoking history and continues to smoke 0.25 packs of cigarettes per day. In addition, he did grow up in a smoking household. 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 Pulmonary function studies completed in July 2022 demonstrated a partially reversible severe mixed ventilatory defect with preserved diffusing capacity. 6-minute walk test demonstrated no need for supplemental oxygen. Since his last office visit with me, the patient's previously prescribed Dasatinib has been discontinued over concerns that it was the etiology for his recurrent pleural effusion. The patient does continue to report ongoing exertional shortness of breath, but denies any chest tightness, wheezing or cough. He does continue to smoke 0.25 packs of cigarettes per day. The patient is currently utilizing Flovent twice daily but does not have access to an albuterol rescue inhaler. He denies any fevers, chills or night sweats. His weight and appetite have been stable. Intake Vital Signs 07/09/22 08:12 08/16/22 13:07 08/20/22 06:58 Height 6 ft 6 ft 6 ft Weight: 229 lb 8 oz 229 lb BMI 31.1 31.0 BP 132/77 H 138/81 H Blood Pressure Location Rt brachial Rt brachial Position Sitting Sitting Respiration 16 18 Pulse 69 70 Pulse Source Monitor Monitor Temp 98.6 F 97.5 F L Temperature Source Temporal Artery Temporal Artery Pulse Oximetry (%) 96 95 Oxygen Delivery Method room air room air Intake Visit Reasons: 6 week follow up Chief Complaint: Chronic myeloid leukemia on treatment Accompanied by: Self Is patient in pain?: No Allergies No Known Allergies Allergy (Verified 08/20/22 09:05) Medications aspirin 81 mg tablet,delayed release 81 mg PO DAILY 09/02/18 [History Confirmed 08/20/22] carvedilol 6.25 mg tablet 6.25 mg PO BID 09/02/18 [History Confirmed 08/20/22] cholecalciferol (vitamin D3) 25 mcg (1,000 unit) capsule 1,000 unit PO DAILY 09/02/18 [History Confirmed 08/20/22] ramipril 2.5 mg capsule 2.5 mg PO DAILY 09/02/18 [History Confirmed 08/20/22] atorvastatin 80 mg tablet 80 mg PO QHS 12/15/19 [History Confirmed 08/20/22] ascorbic acid (vitamin C) 1,000 mg tablet 1,000 mg PO DAILY 04/05/20 [History Confirmed 08/20/22] omega 3-dha 60 mg-epa 90 mg-fish oil 500 mg capsule, delayed release 1 cap PO DAILY 05/12/20 [History Confirmed 08/20/22] vitamin E 200 unit capsule 200 unit PO DAILY 08/25/20 [History Confirmed 08/20/22] ondansetron HCl 8 mg tablet 8 mg PO Q12H PRN PRN Nausea And Vomiting #60 tabs 08/08/22 [Rx Confirmed 08/20/22] bosutinib 100 mg tablet 200 mg PO DAILY 08/16/22 [History Confirmed 08/20/22] fluticasone fur. 100 mcg-umeclid 62.5 mcg-vilant 25 mcg inhalat.powder (Trelegy Ellipta) 1 inh inhalation DAILY #60 ea 08/20/22 [Rx Confirmed 08/20/22] PFSH Medical History Atherosclerosis of coronary artery of [place] heart without angina pectoris Encounter for screening for malignant neoplasm of lung in current smoker with 30 pack year history or greater Essential (primary) hypertension Fatigue Fracture of great toe, right, open Hiatal hernia with GERD History of back problems History of ST elevation myocardial infarction (STEMI) (01/20/17) Hyperlipidemia Leukocytosis Near syncope Nicotine dependence Obesity (BMI 30.0-34.9) 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) Pneumonia Tobacco use disorder, continuous Unspecified injury of right foot, sequela Surgical History History of bilateral inguinal hernia repair (08/2018) History of bone marrow biopsy (04/13/20) History of coronary artery stent placement (01/20/17) Status post laparoscopic Migue fundoplication (10/15/18) Family History Father Colon cancer Diabetes Heart disease Hypertension CAD (coronary artery disease) Sister Breast cancer Mother CAD (coronary artery disease) Hypertension Heart disease Social History household members: spouse Smoking Status: Current every day smoker tobacco type: cigarettes Tobacco: How many years used: 40 Electronic Cigarette Use: not used second hand exposure: No quit status: considering quitting counseling given: provider counseling alcohol intake: current alcohol intake frequency: a few times a week Alcohol type: beer substance use type: does not use well-balanced diet: about half the time uyen/latter-day: Latter Day seatbelt use: always do you feel safe at home: Yes Review of Systems Resp Respiratory: Yes as per HPI Exam Const Constitutional: Positive conversant, cooperative, in no acute respiratory distress, well developed, well nourished, good hygiene and obese Head Head: Yes normocephalic and Yes atraumatic Eyes Eye: Positive clear conjunctiva; Negative nystagmus or scleral abnormality Ears Ear: Positive hearing normal and external ears normal Nose Nose: Yes external nose normal Mouth Mouth: Positive oral mucosae normal Neck Neck: Positive normal visual inspection and trachea midline; Negative lymphadenopathy Chest Wall Chest: Positive symmetric chest movement Normal AP diameter. Resp lung sounds: Positive diminished lung sounds diminished: Positive lower and right; Negative wheezes, rhonchi or rales Cardio Cardiac: Positive regular rate, regular rhythm, S1 normal and S2 normal; Negative murmur, rub or gallop GI GI: Positive normal bowel sounds and obese Soft without distention Genitourinary: Positive deferred Musc Musculoskeletal: Positive steady gait Skin Pulmonary Skin Exam: Positive intact; Negative lesion, rash, ulcers or dermal atrophy Extremities Extremities: No clubbing, No cyanosis and No edema Neuro Neurologic: Yes no focal neuro deficits, Yes conversant and Yes cooperative Lymph Lymphatic: No lymphadenopathy Psych Appearance: Positive grossly normal Mental Status: Positive mental status grossly normal Mood: Positive congruent mood Affect: Positive normal affect Coding Level of Care Code Off vis,est,level 4 Diagnoses Mixed obstructive and restrictive ventilatory defect R94.2 Nicotine dependence, cigarettes, uncomplicated F17.210 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 J90 08/20/22 0936 <Electronically signed by John Brooks DO> Date John Brooks DO Cosigner Signature: Date (if applicable) CC: Jocelin Saunders DO Work Phone: Start: 08-16-2022 Plain chest X-ray Dr. Jocelin Saunders Work Phone: Start: 08-16-2022 End: 08-17-2022 Procedure Note: See Note; NOTES: [facility] Imaging Services [address] [place] [id number] Chest PA and Lateral MR#: [id number] Acct: [id number] Name: FREDERIC OVALLES Rep #: [id number] : 1960 M 62 From: Chalino Quiles PCP: Dr. Jocelin Saunders, Status: REG CLI Study: Chest PA and Lateral Date of Exam: 08/16/22 Exam# [id number] Ordering Dr: Sawyer Delgado MD EXAM: XR CHEST, 2 VIEWS CLINICAL INDICATION: F/U PLEURAL EFFUSION TECHNIQUE: Frontal and lateral views of the chest. This report was created using Klatcher report generation technology. COMPARISON: 08/08/2022 and 07/03/2022. FINDINGS: LUNGS AND PLEURAL SPACES: Unremarkable. No pneumothorax. No change in the moderate right pleural effusion. HEART: Unremarkable. Cardiac silhouette not enlarged. MEDIASTINUM: Central airways and mediastinal contour are unremarkable. BONES/JOINTS: Unremarkable. SOFT TISSUES: Unremarkable. RAD/Chest PA and Lateral IMPRESSION: No change in the moderate right pleural effusion. Electronically Signed: Chalino Ryder MD at 4:33 EST , CC: Dr. Jocelin Saunders DO; Dr. Sawyer Delgado MD Wool Supplier: Signed Sawyer Delgado Work Phone: Start: 08-16-2022 End: 08-17-2022 Procedure Note: See Note; NOTES: [facility] Cardiovascular Services [address] [place] [address] 12 Lead EKG 08/16/22 1401 MR#: [id number] Acct: [id number] Name: FREDERIC OVALLES Rep #: [id number] : 1960 62 From: Hector Hsu MD Attending Dr: Dr. Sawyer Delgado MD Status: REG CLI Ordering Dr: Sawyer Delgado MD Date: 08/16/22 Location: [facility] Sex: M C Admitted: Test Reason : ROUTINE Blood Pressure : / mmHG Vent. Rate : 069 BPM Atrial Rate : 069 BPM P-R Int : 158 ms QRS Dur : 090 ms QT Int : 386 ms P-R-T Axes : 023 -17 -05 degrees QTc Int : 413 ms Normal sinus rhythm Normal ECG Confirmed by HECTOR HSU MD ([id number]), commercial production editor RULA VAZQUEZ ([id number]) on 08/17/2022 12:55:11 PM Referred By: Sawyer Delgado Confirmed By:HECTOR HSU MD 08/17/22 0165 Date Hector Hsu MD CC: Dr. Jocelin Saunders DO; Dr. Sawyer Delgado MD Signed Sawyer Delgado Work Phone: Start: 08-16-2022 End: 08-16-2022 Procedure Note: See Note; NOTES: [facility] [address] [place] [address] OFFICE VISIT Date of Service: 08/16/22 1301 MR#: [id number] Acct: [id number] Name: FREDERIC OVALLES Rep #: [id number] : 1960 From: Sawyer Delgado MD Age/Sex: 62/M Location: [facility] [place] Status: Signed HPI Subjective Date of Service 08/16/22 Chief Complaint Chronic myeloid leukemia on treatment History of Present Illness 62-year-old gentleman with no known chronic inflammatory or infectious diseases referred in consultation because of a persistent leukocytosis. March 2020 peripheral blood BCR ABL by FISH was positive consistent with chronic myeloid leukemia. Bone marrow aspirate and biopsy April 13, 2020: BONE MARROW DIAGNOSIS Bone marrow biopsy, clot and aspiration (specimens A-C): Hypercellular bone marrow. No stainable iron identified. No evidence of lymphoproliferative disorder. See comment. COMMENT Flow cytometry analysis reveals no increased blasts population. However, myeloid elements exhibit aberrant expression of CD56 and show left shift with down-regulation of CD10 and CD16. The findings are compatible with an underlying primary myeloid neoplasm. The flow cytometry analysis report from [facility] [employer] [facility] is reviewable in the patient???s EMR. BONE MARROW STUDY Slides are reviewed. CBC DATE: 04/13/20 WBC 22.5; RBC 5.33; HGB 15.8; HCT 48.5; MCV 91.0; RDW 48.2; PLTS 206,000 SEGS 54%; LYMPHS 23%; MONOS 11%; EOS 2%; BASOS 0% PERIPHERAL SMEAR: Submitted. RBC: Normochromic, normomorphic WBC: Neutrophilic leukocytosis with slight left shift. PLTS: Normomorphic BONE MARROW ASPIRATE DIFFERENTIAL: 200 cell count. Blasts % (normal 0-2): 2 Promyelocytes % (normal 1-5): 5 Myelocytes and metamyelocytes % (normal 17-41): 38 Bands and Segs % (normal 15-32): 26 Eos % (normal 1-6): 2 Basos % (normal 0-1): 0 Monocytes % (normal 0-4): 2 Erythroid Precursors % (normal 17-35): 18 Lymphocytes % (normal 7-13): 7 Plasma Cells % (normal 0-2): 0 ASPIRATE FINDINGS: Site: Not specified Paucispicular Cellular M/E ratio: Within normal limits (Normal 1.5 - 4.0) Megakaryocytes: Adequate Erythropoiesis: Progressive Granulopoiesis: Normoblastic CORE BIOPSY FINDINGS: Site: Not specified Adequacy: No bone present Cellularity %: Not applicable M/E ratio: Not applicable Blood Only rare marrow cell noted. ASPIRATE CLOT FINDINGS: Site: Not specified Marrow Particles: Many Cellularity %: 80% M/E ratio: Within normal limits Megakaryocytes: Adequate Granuloma(s): 0 Lymphoid aggregate(s): 0 Atypical infiltrate(s): 0 SPECIAL STAINS (with matched controls): Iron: Stainable iron not present Reticulin: Within normal limits PAS: Highlights myeloid elements and megakaryocytes. ADDENDUM FISH BCR/ABL1 REPORT FROM [facility] INTERPRETATION: BCR/ABL gene rearrangement is detected. RESULTS: BCR/ABL1 Normal Nuclei Positive Nuclei with Dual Fusion 3.33% 96.67% CYTOGENETICS REPORT FROM [facility] INTERPRETATION: Abnormal male karyotype was observed in twenty metaphases analyzed. 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 Bosutinib to August 10, 2022. [facility] Medical History Atherosclerosis of coronary artery of [place] heart without angina pectoris Encounter for screening for malignant neoplasm of lung in current smoker with 30 pack year history or greater Essential (primary) hypertension Fatigue Fracture of great toe, right, open Hiatal hernia with GERD History of back problems History of ST elevation myocardial infarction (STEMI) (01/20/17) Hyperlipidemia Leukocytosis Near syncope Nicotine dependence Obesity (BMI 30.0-34.9) 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) Pneumonia Tobacco use disorder, continuous Unspecified injury of right foot, sequela Surgical History History of bilateral inguinal hernia repair (08/2018) History of bone marrow biopsy (04/13/20) History of coronary artery stent placement (01/20/17) Status post laparoscopic Migue fundoplication (10/15/18) Family History Father Colon cancer Diabetes Heart disease Hypertension CAD (coronary artery disease) Sister Breast cancer Mother CAD (coronary artery disease) Hypertension Heart disease Social History household members: spouse Smoking Status: Current every day smoker tobacco type: cigarettes Tobacco: How many years used: 40 Electronic Cigarette Use: not used second hand exposure: No quit status: considering quitting counseling given: provider counseling alcohol intake: current alcohol intake frequency: a few times a week Alcohol type: beer substance use type: does not use well-balanced diet: about half the time uyen/latter-day: Latter Day seatbelt use: always do you feel safe at home: Yes ROS Constitutional Constitutional: Reports systems reviewed and no addt'l complaints, except as documented and weight loss; Denies anorexia, fatigue, fever(s) or night sweats Eyes Eyes: Reports systems reviewed and no addt'l complaints, except as documented ENT HEENT: Reports systems reviewed and no addt'l complaints, except as documented; Denies dysphagia, headache(s), mouth lesions or mucositis Cardiovascular Cardiovascular: Reports systems reviewed and no addt'l complaints, except as documented; Denies chest pain with activity or edema Respiratory/Chest Respiratory/Chest: Reports systems reviewed and no addt'l complaints, except as documented, cough, dyspnea on exertion and other Details: Still smokes, was prescribed a bronchodilator inhaler by PCP June 2022 does not appreciate significant improvement, continues to follow-up with pulmonary Gastrointestinal Gastrointestinal: Reports systems reviewed and no addt'l complaints, except as documented, change in bowel habits and other Details: Stools are a bit softer but not enough to cause diarrhea nor use Imodium ; Denies diarrhea or nausea Genitourinary Genitourinary: Reports systems reviewed and no addt'l complaints, except as documented; Denies dysuria Musculoskeletal Musculoskeletal: Reports systems reviewed and no addt'l complaints, except as documented, back pain and other Details: Chronic back pain unchanged Integumentary Integumentary: Reports systems reviewed and no addt'l complaints, except as documented and dry skin Neurologic Neurologic: Reports systems reviewed and no addt'l complaints, except as documented; Denies headache(s) or weakness Psychiatric Psychiatric: Reports systems reviewed and no addt'l complaints, except as documented Endocrine Endocrinology: Reports systems reviewed and no addt'l complaints, except as documented Hematologic/Lymphatic Hematologic/Lymphatic: Reports systems reviewed and no addt'l complaints, except as documented; Denies easy bleeding or easy bruising Allergic/Immunologic Allergic/Immunologic: Reports systems reviewed and no addt'l complaints, except as documented Intake Vital Signs 08/16/22 13:03 08/16/22 13:07 Height 6 ft 6 ft Weight: 104.099 kg BMI 31.1 BP 132/77 H Blood Pressure Location Rt brachial Position Sitting Respiration 16 Pulse 69 Pulse Source Monitor Temp 98.6 F Temperature Source Temporal Artery Pulse Oximetry (%) 96 Oxygen Delivery Method room air Intake Accompanied by: Self Is patient in pain?: No Allergies No Known Allergies Allergy (Verified 08/16/22 13:03) Medications aspirin 81 mg tablet,delayed release 81 mg PO DAILY 09/02/18 [History Confirmed 08/16/22] carvedilol 6.25 mg tablet 6.25 mg PO BID 09/02/18 [History Confirmed 08/16/22] cholecalciferol (vitamin D3) 25 mcg (1,000 unit) capsule 1,000 unit PO DAILY 09/02/18 [History Confirmed 08/16/22] ramipril 2.5 mg capsule 2.5 mg PO DAILY 09/02/18 [History Confirmed 08/16/22] atorvastatin 80 mg tablet 80 mg PO QHS 12/15/19 [History Confirmed 08/16/22] ascorbic acid (vitamin C) 1,000 mg tablet 1,000 mg PO DAILY 04/05/20 [History Confirmed 08/16/22] omega 3-dha 60 mg-epa 90 mg-fish oil 500 mg capsule, delayed release 1 cap PO DAILY 05/12/20 [History Confirmed 08/16/22] vitamin E 200 unit capsule 200 unit PO DAILY 08/25/20 [History Confirmed 08/16/22] fluticasone propionate 110 mcg/actuation HFA aerosol inhaler 1 puff inhalation BID 07/04/22 [History Confirmed 08/16/22] ondansetron HCl 8 mg tablet 8 mg PO Q12H PRN PRN Nausea And Vomiting #60 tabs 08/08/22 [Rx Confirmed 08/16/22] bosutinib 100 mg tablet 200 mg PO DAILY 08/16/22 [History Confirmed 08/16/22] Central Venous Access Central Venous Access: No CBC, CMP August 16, 2022 reviewed in EMR EKG August 16, 2022 pending Exam Physical Exam Const alert and oriented x3 Constitutional Narrative: ECOG 0-1 General Appearance: cooperative Nutritional Appearance: overweight HEENT normocephalic Head and Scalp: normal to inspection Mouth: oral and palatal mucosa normal Eyes conjunctivae normal and no scleral icterus General Eye: normal appearance of both eyes Neck no lymphadenopathy and no JVD Lymph Lymphatic: no lymphadenopathy noted Chest Chest: symmetrical chest wall rise Resp normal respiratory effort and clear to auscultation bilaterally Auscultation: breath sounds absent right (Small right basal pleural effusion) Cardio regular rate, regular rhythm, S1 normal heart sound, S2 normal heart sound and no murmurs Jugular Venous Distention: Negative for JVD GI soft to palpation, non-tender and non-distended; Negative for hepatosplenomegaly no CVA tenderness Back/Spine no thoracic nor lumbar tenderness Extremity no clubbing, cyanosis or edema Skin no rashes or lesions noted Neuro oriented x3, CN's II-XII intact bilaterally, moves all extremities and no focal motor deficits Coordination / Balance: [id number] test normal Speech: speech normal Gait (Neuro): normal gait Psych mental status grossly normal Coding Level of Care Code Off vis,est,level 4 Exam Problem Focused Diagnoses Chronic myeloid leukemia C92.10 Bilateral pleural effusion J90 Assessment and Plan Assessment and Plan (1) Chronic myeloid leukemia: Status: Chronic (2) Bilateral pleural effusion: Status: Inactive Orders: Orders Magnesium 08/23/22 C92.10 - Chronic myeloid leukemia, BCR/ABL-positive, not having achieved remission Phosphorus 08/23/22 C92.10 - Chronic myeloid leukemia, BCR/ABL-positive, not having achieved remission Magnesium 08/30/22 C92.10 - Chronic myeloid leukemia, BCR/ABL-positive, not having achieved remission Phosphorus 08/30/22 C92.10 - Chronic myeloid leukemia, BCR/ABL-positive, not having achieved remission Magnesium 09/06/22 C92.10 - Chronic myeloid leukemia, BCR/ABL-positive, not having achieved remission Phosphorus 09/06/22 C92.10 - Chronic myeloid leukemia, BCR/ABL-positive, not having achieved remission 12 Lead EKG 08/30/22 C92.10 - Chronic myeloid leukemia, BCR/ABL-positive, not having achieved remission, Z51.81 - Encounter for therapeutic drug level monitoring, Z79.899 - Other assisted (current) drug therapy Comprehensive Metabolic Profil 09/20/22 C92.10 - Chronic myeloid leukemia, BCR/ABL-positive, not having achieved remission Magnesium 09/20/22 C92.10 - Chronic myeloid leukemia, BCR/ABL-positive, not having achieved remission Phosphorus 09/20/22 C92.10 - Chronic myeloid leukemia, BCR/ABL-positive, not having achieved remission CBC W/Diff, Automated 09/20/22 C92.10 - Chronic myeloid leukemia, BCR/ABL-positive, not having achieved remission Comprehensive Metabolic Profil 10/04/22 C92.10 - Chronic myeloid leukemia, BCR/ABL-positive, not having achieved remission Magnesium 10/04/22 C92.10 - Chronic myeloid leukemia, BCR/ABL-positive, not having achieved remission Phosphorus 10/04/22 C92.10 - Chronic myeloid leukemia, BCR/ABL-positive, not having achieved remission CBC W/Diff, Automated 10/04/22 C92.10 - Chronic myeloid leukemia, BCR/ABL-positive, not having achieved remission Plan 62-year-old male who presented with with a mature neutrophilic leukocytosis first noted January 2020, progressively worsening. He has no known chronic inflammatory or infectious diseases. BCR ABL profile with FISH is positive consistent with chronic myeloid leukemia. No palpably enlarged spleen (within limitation of body size and habitus) at diagnosis,13.4 cm by ultrasound. Bone marrow aspirate and biopsy March 2020 confirmed the diagnosis with a q BCR ABL positivity of 96.67% ELTS score 1.4177 (low risk). * Started TKI therapy with dasatinib April 28, 2020, a decline in WBC/ANC is consistent with a hematologic response within the first month of treatment. . Mild elevation of liver enzymes less than 2 fold resolved and an increasing leukopenia with preserved neutrophil count noted at 4 weeks of treatment also resolved with continued standard dosing. He showed a major molecular response (MMR) to treatment , however October 2021 he showed an upward trend in q. BCR ABL but then declined to </= 0.1 (optimal) to rise again in May 2022. Date qBCR-ABL (e13a2/b2a2) 03/30/2020 159.1086 08/10/2020 0.3342 11/10/2020 0.017 02/08/2021 0.031 05/09/2021 0.0626 08/09/2021 0.0559 11/08/2021 0.2603 12/12/2021 NEG 03/22/2022 0.056 06/20/2022 0.1436 * In May [address] of the chest showed no abnormalities. In May 2022 he was noted to have developed bilateral pleural effusions, suspected Dasatinib side effect. He improved after the pleural tap. June 2022 he was evaluated at [facility] by Dr. Lawton for possible evolving Dasatinib resistance and evaluation was negative. Because of the recurrence of pleural effusions recommendati on was to switch from Dasatinib to Bosutinib which he started August 10, 2022. Comorbid conditions: smoker with over 30 pack years cigarettes (started at age 18 averaging 1/2 to 1 pack of cigarettes daily), hypertension, coronary artery disease, cerebrovascular disease and dyslipidemia. Plan: #1-Continue Bosutinib with monitor for toxicity on a weekly basis in the first month of therapy. #2-q. BCR/ABL every 3 months. #3 -We will follow-up with chest x-ray now being off Dasatinib for eventual resolution of pleural effusion. He is also being followed up in pulmonary clinic. #4-Continue to follow-up with pulmonary for work-up and management of reactive airways disease. Encouraged to quit smoking. #5-EKG follow-up QTC August 16, 2022 and in 2 weeks Patient was seen , impression and plan discussed. Sawyer Delgado MD Transit Driver, [facility] Divisions of Medical Oncology Hematology Department of Internal Medicine [place] [id number] This note was generated using a voice recognition system software. Although it was reviewed by the author prior to finalization, it may still contain incorrect words, spelling, and punctuation that were not noted when reviewing prior to saving. If a clinically significant typo or inaccurately typed phrase is noted, please notify the author. 08/16/22 7682 <Electronically signed by Sawyer Delgado MD> Date Swayer Wiseman Signature: Date (if applicable) CC: Jocelin Saunders DO Work Phone: Start: 08-09-2022 End: 08-13-2022 Procedure Note: See Note; NOTES: [facility] [address] [place] [address]. [place] [address] OFFICE VISIT Date of Service: 08/09/221442 MR#: [id number] Acct: [id number] Name: FREDERIC OVALLES Rep #: [id number] : 1960 From: Savi Rodriguez NP FERMENTER HELPER -C Age/Sex: 62/M Location: [facility] – [place] Status: Signed HPI Subjective Date of Service 08/09/22 Chief Complaint Chemotherapy education History of Present Illness 62-year-old gentleman with no known chronic inflammatory or infectious diseases referred in consultation because of a persistent leukocytosis. March 2020 peripheral blood BCR ABL by FISH was positive consistent with chronic myeloid leukemia. Bone marrow aspirate and biopsy April 13, 2020: BONE MARROW DIAGNOSIS Bone marrow biopsy, clot and aspiration (specimens A-C): Hypercellular bone marrow. No stainable iron identified. No evidence of lymphoproliferative disorder. See comment. COMMENT Flow cytometry analysis reveals no increased blasts population. However, myeloid elements exhibit aberrant expression of CD56 and show left shift with down-regulation of CD10 and CD16. The findings are compatible with an underlying primary myeloid neoplasm. The flow cytometry analysis report from [facility] is reviewable in the patient???s EMR. BONE MARROW STUDY Slides are reviewed. CBC DATE: 04/13/20 WBC 22.5; RBC 5.33; HGB 15.8; HCT 48.5; MCV 91.0; RDW 48.2; PLTS 206,000 SEGS 54%; LYMPHS 23%; MONOS 11%; EOS 2%; BASOS 0% PERIPHERAL SMEAR: Submitted. RBC: Normochromic, normomorphic WBC: Neutrophilic leukocytosis with slight left shift. PLTS: Normomorphic BONE MARROW ASPIRATE DIFFERENTIAL: 200 cell count. Blasts % (normal 0-2): 2 Promyelocytes % (normal 1-5): 5 Myelocytes and metamyelocytes % (normal 17-41): 38 Bands and Segs % (normal 15-32): 26 Eos % (normal 1-6): 2 Basos % (normal 0-1): 0 Monocytes % (normal 0-4): 2 Erythroid Precursors % (normal 17-35): 18 Lymphocytes % (normal 7-13): 7 Plasma Cells % (normal 0-2): 0 ASPIRATE FINDINGS: Site: Not specified Paucispicular Cellular M/E ratio: Within normal limits (Normal 1.5 - 4.0) Megakaryocytes: Adequate Erythropoiesis: Progressive Granulopoiesis: Normoblastic CORE BIOPSY FINDINGS: Site: Not specified Adequacy: No bone present Cellularity %: Not applicable M/E ratio: Not applicable Blood Only rare marrow cell noted. ASPIRATE CLOT FINDINGS: Site: Not specified Marrow Particles: Many Cellularity %: 80% M/E ratio: Within normal limits Megakaryocytes: Adequate Granuloma(s): 0 Lymphoid aggregate(s): 0 Atypical infiltrate(s): 0 SPECIAL STAINS (with matched controls): Iron: Stainable iron not present Reticulin: Within normal limits PAS: Highlights myeloid elements and megakaryocytes. ADDENDUM FISH BCR/ABL1 REPORT FROM [facility] INTERPRETATION: BCR/ABL gene rearrangement is detected. RESULTS: BCR/ABL1 Normal Nuclei Positive Nuclei with Dual Fusion 3.33% 96.67% CYTOGENETICS REPORT FROM [facility] INTERPRETATION: Abnormal male karyotype was observed in twenty metaphases analyzed. 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 Bosutinib to start July 2022. Interval History The patient is presenting to clinic for an education visit. It has been proposed that he begin Bosulif. Has been experiencing headaches, otherwise he has no outstanding physical complaints. [facility] Medical History Atherosclerosis of coronary artery of [place] heart without angina pectoris Encounter for screening for malignant neoplasm of lung in current smoker with 30 pack year history or greater Essential (primary) hypertension Fatigue Fracture of great toe, right, open Hiatal hernia with GERD History of back problems History of ST elevation myocardial infarction (STEMI) (01/20/17) Hyperlipidemia Leukocytosis Near syncope Nicotine dependence Obesity (BMI 30.0-34.9) 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) Pneumonia Tobacco use disorder, continuous Unspecified injury of right foot, sequela Surgical History History of bilateral inguinal hernia repair (08/2018) History of bone marrow biopsy (04/13/20) History of coronary artery stent placement (01/20/17) Status post laparoscopic Migue fundoplication (10/15/18) Family History Father Colon cancer Diabetes Heart disease Hypertension CAD (coronary artery disease) Sister Breast cancer Mother CAD (coronary artery disease) Hypertension Heart disease Social History household members: spouse Smoking Status: Current every day smoker tobacco type: cigarettes Tobacco: How many years used: 40 Electronic Cigarette Use: not used second hand exposure: No quit status: considering quitting counseling given: provider counseling alcohol intake: current alcohol intake frequency: a few times a week Alcohol type: beer substance use type: does not use well-balanced diet: about half the time uyen/latter-day: Latter Day seatbelt use: always do you feel safe at home: Yes ROS ROS Narrative Negative except as documented in the interval HPI Intake Vital Signs 08/08/22 14:19 08/09/22 08:15 08/09/22 14:44 08/09/22 14:47 Height 6 ft 6 ft 6 ft 6 ft Weight: 235 lb 233 lb 5 oz BMI 31.6 BP 167/84 H Blood Pressure Location Lt brachial Position Sitting Respiration 16 Pulse 69 72 Pulse Source Monitor Temp 98.1 F Temperature Source Temporal Artery Pulse Oximetry (%) 95 93 Oxygen Delivery Method room air Intake Accompanied by: Self Is patient in pain?: Yes (headache) Allergies No Known Allergies Allergy (Verified 08/09/22 14:46) Medications aspirin 81 mg tablet,delayed release 81 mg PO DAILY 09/02/18 [History Confirmed 08/09/22] carvedilol 6.25 mg tablet 6.25 mg PO BID 09/02/18 [History Confirmed 08/09/22] cholecalciferol (vitamin D3) 25 mcg (1,000 unit) capsule 1,000 unit PO DAILY 09/02/18 [History Confirmed 08/09/22] ramipril 2.5 mg capsule 2.5 mg PO DAILY 09/02/18 [History Confirmed 08/09/22] atorvastatin 80 mg tablet 80 mg PO QHS 12/15/19 [History Confirmed 08/09/22] ascorbic acid (vitamin C) 1,000 mg tablet 1,000 mg PO DAILY 04/05/20 [History Confirmed 08/09/22] omega 3-dha 60 mg-epa 90 mg-fish oil 500 mg capsule, delayed release 1 cap PO DAILY 05/12/20 [History Confirmed 08/09/22] vitamin E 200 unit capsule 200 unit PO DAILY 08/25/20 [History Confirmed 08/09/22] fluticasone propionate 110 mcg/actuation HFA aerosol inhaler 1 puff inhalation BID 07/04/22 [History Confirmed 08/09/22] ondansetron HCl 8 mg tablet 8 mg PO Q12H PRN PRN Nausea And Vomiting #60 tabs 08/08/22 [Rx Confirmed 08/09/22] Central Venous Access Central Venous Access: No Exam Physical Exam Const alert and oriented x3 Constitutional Narrative: ECOG 0-1 General Appearance: cooperative Nutritional Appearance: overweight HEENT Head and Scalp: normal to inspection Mouth: oral and palatal mucosa normal Eyes conjunctivae normal and no scleral icterus General Eye: normal appearance of both eyes Resp normal respiratory effort and clear to auscultation bilaterally Auscultation: breath sounds absent right (Small right basal pleural effusion) Cardio regular rate, regular rhythm, S1 normal heart sound, S2 normal heart sound and no murmurs Jugular Venous Distention: Negative for JVD Psych mental status grossly normal Attitude: agitated and other Agitated he has not yet been able to acquire oral medication and concerned he is off treatment at this time Coding Level of Care Code Off vis,est,level 5 Exam Problem Focused Diagnoses Chronic myeloid leukemia C92.10 Encounter for education Z71.9 Assessment and Plan Assessment and Plan (1) Chronic myeloid leukemia: Status: Chronic (2) Encounter for education: Status: Acute Orders: Orders Comprehensive Metabolic Profil 08/16/22 C92.10 - Chronic myeloid leukemia, BCR/ABL-positive, not having achieved remission, Z79.899 - Other emt intermediate (current) drug therapy CBC W/Diff, Automated 08/16/22 C92.10 - Chronic myeloid leukemia, BCR/ABL-positive, not having achieved remission, I25.10 - Atherosclerotic heart disease of [place] coronary artery without angina pectoris, Z79.899 - Other assisted (current) drug therapy Retic Panel Count 08/16/22 C92.10 - Chronic myeloid leukemia, BCR/ABL-positive, not having achieved remission, Z79.899 - Other assisted (current) drug therapy Comprehensive Metabolic Profil 08/23/22 C92.10 - Chronic myeloid leukemia, BCR/ABL-positive, not having achieved remission, Z79.899 - Other assisted (current) drug therapy CBC W/Diff, Automated 08/23/22 C92.10 - Chronic myeloid leukemia, BCR/ABL-positive, not having achieved remission, Z79.899 - Other emt intermediate (current) drug therapy Retic Panel Count 08/23/22 C92.10 - Chronic myeloid leukemia, BCR/ABL-positive, not having achieved remission, Z79.899 - Other emt intermediate (current) drug therapy Comprehensive Metabolic Profil 08/30/22 C92.10 - Chronic myeloid leukemia, BCR/ABL-positive, not having achieved remission, Z79.899 - Other assisted (current) drug therapy CBC W/Diff, Automated 08/30/22 C92.10 - Chronic myeloid leukemia, BCR/ABL-positive, not having achieved remission, Z79.899 - Other emt intermediate (current) drug therapy Retic Panel Count 08/30/22 C92.10 - Chronic myeloid leukemia, BCR/ABL-positive, not having achieved remission, Z79.899 - Other emt intermediate (current) drug therapy Comprehensive Metabolic Profil 09/06/22 C92.10 - Chronic myeloid leukemia, BCR/ABL-positive, not having achieved remission, Z79.899 - Other assisted (current) drug therapy CBC W/Diff, Automated 09/06/22 C92.10 - Chronic myeloid leukemia, BCR/ABL-positive, not having achieved remission, Z79.899 - Other assisted (current) drug therapy Retic Panel Count 09/06/22 C92.10 - Chronic myeloid leukemia, BCR/ABL-positive, not having achieved remission, Z79.899 - Other assisted (current) drug therapy Medications: Discontinued benzonatate (Tessalon Perles) Discontinued Reason: Pt no longer taking 100 mg PO BID PRN 20 caps 0RF cough hydrocodone-acetaminophen 5-325 mg Discontinued Reason: Pt no longer taking 1 TAB PO Q4H PRN 2 days PRN 10 TABLETS 0RF Pain M79.18 - Myalgia, other site meloxicam Discontinued Reason: Pt no longer taking 7.5 mg PO DAILY 7 tabs 0RF Plan 62-year-old male who presented with with a mature neutrophilic leukocytosis first noted January 2020, progressively worsening. He has no known chronic inflammatory or infectious diseases. BCR ABL profile with FISH is positive consistent with chronic myeloid leukemia. No palpably enlarged spleen (within limitation of body size and habitus) at diagnosis,13.4 cm by ultrasound. Bone marrow aspirate and biopsy March 2020 confirmed the diagnosis with a q BCR ABL positivity of 96.67% ELTS score 1.4177 (low risk). * Started TKI therapy with dasatinib April 28, 2020, a decline in WBC/ANC is consistent with a hematologic response within the first month of treatment. . Mild elevation of liver enzymes less than 2 fold resolved and an increasing leukopenia with preserved neutrophil count noted at 4 weeks of treatment also resolved with continued standard dosing. He showed a major molecular response (MMR) to treatment , however October 2021 he showed an upward trend in q. BCR ABL but then declined to </= 0.1 (optimal) to rise again in May 2022. Date qBCR-ABL (e13a2/b2a2) 03/30/2020 159.1086 08/10/2020 0.3342 11/10/2020 0.017 02/08/2021 0.031 05/09/2021 0.0626 08/09/2021 0.0559 11/08/2021 0.2603 12/12/2021 NEG 03/22/2022 0.056 06/20/2022 0.1436 * In May [address] of the chest showed no abnormalities. In May 2022 he was noted to have developed bilateral pleural effusions, suspected Dasatinib side effect. He improved after the pleural tap. June 2022 he was evaluated at [facility] by Dr. Jered for possible evolving Dasatinib resistance and evaluation was negative. Because of the recurrence of pleural effusions recommendation was to switch from Dasatinib to Bosutinib. Comorbid conditions: smoker with over 30 pack years cigarettes (started at age 18 averaging 1/2 to 1 pack of cigarettes daily), hypertension, coronary artery disease, cerebrovascular disease and dyslipidemia. Plan: #1-To start bosutinib in July 2022. Will monitor for toxicity on a weekly basis in the first month of therapy. The patient has been thoroughly educated to risks/benefits associated with bosutinib. Specifically, he has been educated to recommended storage and handling, proper administration, potential side effects, recommendations for symptom management, and circumstances in which he should contact provider immediately, such as the development of any signs/symptoms of infection inclusive of temperature > 100.4. Encouraged to go directly to ED should fever occur outside normal clinic hours. He has been provided written educational information and after hours contact information and prescriptions for prn antiemetics. A significant amount of time was allotted for questions. All the patient's concerns were addressed to his satisfaction and he is agreeable to proceed. Patient is presently working with [facility] patient assistance program to coordinate acquisition of bosutinib. I remained on speaker phone with him while he talked with patient assistance program. Patient was told he may be able to receive free drug through the [facility] repository temporarily. #2-Update q. BCR/ABL prior to start of new therapy???pending. #3 -Chest x-ray from yesterday shows stability of right-sided pleural effusion. EKG shows no evidence of QTC prolongation. These results were reviewed with the patient. #4-Continue to follow-up with pulmonary for work-up and management of reactive airways disease. Encouraged to quit smoking. Return to office determined by patient's acquiring of the bosutinib. He is instructed to call our office when it is delivered. I spent 45 minutes today reviewing labs, records and history. Time includes coordination of care and interpretation of tests, patient education, as well as documenting clinical information. 08/13/221817 <Electronically signed by Savi Rodriguez NP FERMENTER HELPER-C> Date Savi [facility] Cosigner Signature: Date (if applicable) CC: Dr. Jocelin Saunders, DO Jocelin Saunders DO Work Phone: Start: 08-09-2022 End: 08-09-2022 Procedure Note: See Note; NOTES: [facility] Pulmonary Services/Neurology [address] [place] [address] MR#: [id number] Acct: [id number] Name: FREDERIC OVALLES Rep #: [id number] : 1960 62 From: Gallito Malcolm MD Referring Dr: Status: REG CLI Location: PSN Date: Sex: M C PSN 6 Minute Walk Test 6 Minute Walk Test 6 Minute Walk Test: 6 Minute Walk Test PSN:6-Minute Walk Test Start: 08/09/22 08:25 Freq: Status: Active Protocol: RESP.6MINW Document 08/09/22 08:15 AE (Rec: 08/09/22 08:28 [facility] [id number]) 6 Minute Walk Test Date Performed 08/09/22 Time Performed 08:15 Height 6 ft Weight: 106.594 kg Weight in Pounds 235.[address]: John Brooks Assistive device used: None Pre-test Oxygen Delivery Method Room Air Pulse Ox (%) 95 Pulse Rate (60-100 beats/min) 66 Dyspnea Felicity Scale (0-10) 0 Exertion Felicity Scale (6-20) 6 1st minute Oxygen Delivery Method Room Air Pulse Ox (%) 93 Pulse Rate (60-100 beats/min) 85 2nd minute Oxygen Delivery Method Room Air Pulse Ox (%) 92 Pulse Rate (60-100 beats/min) 90 3rd minute Oxygen Delivery Method Room Air Pulse Ox (%) 93 Pulse Rate (60-100 beats/min) 86 4th minute Oxygen Delivery Method Room Air Pulse Ox (%) 93 Pulse Rate (60-100 beats/min) 85 5th minute Oxygen Delivery Method Room Air Pulse Ox (%) 93 Pulse Rate (60-100 beats/min) 90 6th minute Oxygen Delivery Method Room Air Pulse Ox (%) 93 Pulse Rate (60-100 beats/min) 89 Dyspnea Felicity Scale (0-10) 0.5 Exertion Felictiy Scale (6-20) 8 Post-test Oxygen Delivery Method Room Air Pulse Ox (%) 95 Pulse Rate (60-100 beats/min) 69 Full Laps Walked 20 Partial Lap, Number of Tiles Walked 20 Total Distance Walked (ft) 1200 Interpretation Interpretation: The patient was able to ambulate 1200 feet over the course of 6 minutes on room air with no assistive devices or breaks. The patient experienced significant desaturation from a baseline of 95% to as low as 92%, but no significant tachycardia was noted. Recommendations Recommendations: No supplemental oxygen is indicated at this time. 08/09/22 1440 <Electronically signed by Gallito Malcolm MD> Date Gallito Malcolm MD CC: Date Dictated: 08/09/22 1439 Date Transcribed: 08/09/221438 Wool Supplier: Dr. Gallito Malcolm MD Signed Jocelin Saunders DO Work Phone: Start: 08-08-2022 Plain chest X-ray Dr. Jocelin Saunders Work Phone: Start: 08-08-2022 End: 08-08-2022 Procedure Note: See Note; NOTES: [facility] Imaging Services [address] [place] [id number] Chest PA and Lateral MR#: [id number] Acct: [id number] Name: MARTHAFREDERIC Alyx Rep #: [id number] : 1960 M 62 From: Ari Quiles PCP: Dr. Jocelin Saunders DO Status: REG CLI Study: Chest PA and Lateral Date of Exam: 08/08/22 Exam# [id number] Ordering Dr: Sawyer Delgado MD INDICATION: F/U PLEURAL EFFUSION EXAMINATION/TECHNIQUE: X-RAY - XR Chest 2 Views COMPARISON: 07/20/2022 FINDINGS: LIFE-SUPPORT AND LINES: 1. None HEART AND VESSELS: The cardiac silhouette, pulmonary vasculature have normal appearance. No evidence of congestive failure. LUNGS AND PLEURAL SPACES: RIGHT basilar atelectasis and volume loss, moderate RIGHT effusion again noted without significant change. LEFT lung is clear, mild blunting LEFT CP angle. MEDIASTINUM AND HILAR REGIONS: No masses adenopathy noted. No areas of calcification. Visualized upper airway is normal in position. BONY ELEMENTS: No acute bony changes noted. RAD/Chest PA and Lateral IMPRESSION: 1. Moderate size RIGHT pleural effusion with passive atelectasis at the RIGHT lung base. 2. Minimal atelectasis at LEFT base and minimal blunting LEFT CP angle. 3. No congestive failure. Electronically Signed: Ari Hallman MD at 17:21 EST Reading Location ID and State: [facility] / [place] Tel , Service support , CC: Dr. Jocelin Saunders DO; Dr. Sawyer Delgado MD Wool Supplier: Signed Sawyer Delgado Work Phone: Start: 08-08-2022 End: 08-09-2022 Procedure Note: See Note; NOTES: [facility] Cardiovascular Services [address] [place] [address] 12 Lead EKG 08/08/22 1609 MR#: [id number] Acct: [id number] Name: FREDERIC OVALLES Rep #: [id number] : 1960 62 From: Hector Hsu MD Attending Dr: Dr. Sawyer Delgado MD Status: REG CLI Ordering Dr: Sawyer Delgado MD Date: 08/08/22 Location: [facility] Sex: M C Admitted: Test Reason : Blood Pressure : / mmHG Vent. Rate : 067 BPM Atrial Rate : 067 BPM P-R Int : 146 ms QRS Dur : 090 ms QT Int : 382 ms P-R-T Axes : 009 -01 027 degrees QTc Int : 403 ms Normal sinus rhythm Septal infarct , age undetermined Abnormal ECG Confirmed by HECTOR HSU MD ([id number]), commercial production editor RULA VAZQUEZ ([id number]) on 08/09/2022 8:32:27 AM Referred By: Sawyer Delgado Confirmed By:HECTOR HSU MD 08/09/22 0832 Date Hector Hsu MD CC: Dr. Jocelin Saunders, DO; Dr. Sawyer Delgado MD Signed Sawyer Delgado Work Phone: Start: 08-08-2022 End: 08-08-2022 Procedure Note: See Note; NOTES: [facility] [address] [address] OFFICE VISIT Date of Service: 08/08/22 1419 MR#: [id number] Acct: [id number] Name: FREDERIC OVALLES Rep #: [id number] : 1960 From: Sawyer Delgado MD Age/Sex: 62/M Location: [facility] [place] Status: Signed HPI Subjective Date of Service 08/08/22 Chief Complaint Chronic myeloid leukemia on treatment History of Present Illness 62-year-old gentleman with no known chronic inflammatory or infectious diseases referred in consultation because of a persistent leukocytosis. March 2020 peripheral blood BCR ABL by FISH was positive consistent with chronic myeloid leukemia. Bone marrow aspirate and biopsy April 13, 2020: BONE MARROW DIAGNOSIS Bone marrow biopsy, clot and aspiration (specimens A-C): Hypercellular bone marrow. No stainable iron identified. No evidence of lymphoproliferative disorder. See comment. COMMENT Flow cytometry analysis reveals no increased blasts population. However, myeloid elements exhibit aberrant expression of CD56 and show left shift with down-regulation of CD10 and CD16. The findings are compatible with an underlying primary myeloid neoplasm. The flow cytometry analysis report from [facility] is reviewable in the patient???s EMR. BONE MARROW STUDY Slides are reviewed. CBC DATE: 04/13/20 WBC 22.5; RBC 5.33; HGB 15.8; HCT 48.5; MCV 91.0; RDW 48.2; PLTS 206,000 SEGS 54%; LYMPHS 23%; MONOS 11%; EOS 2%; BASOS 0% PERIPHERAL SMEAR: Submitted. RBC: Normochromic, normomorphic WBC: Neutrophilic leukocytosis with slight left shift. PLTS: Normomorphic BONE MARROW ASPIRATE DIFFERENTIAL: 200 cell count. Blasts % (normal 0-2): 2 Promyelocytes % (normal 1-5): 5 Myelocytes and metamyelocytes % (normal 17-41): 38 Bands and Segs % (normal 15-32): 26 Eos % (normal 1-6): 2 Basos % (normal 0-1): 0 Monocytes % (normal 0-4): 2 Erythroid Precursors % (normal 17-35): 18 Lymphocytes % (normal 7-13): 7 Plasma Cells % (normal 0-2): 0 ASPIRATE FINDINGS: Site: Not specified Paucispicular Cellular M/E ratio: Within normal limits (Normal 1.5 - 4.0) Megakaryocytes: Adequate Erythropoiesis: Progressive Granulopoiesis: Normoblastic CORE BIOPSY FINDINGS: Site: Not specified Adequacy: No bone present Cellularity %: Not applicable M/E ratio: Not applicable Blood Only rare marrow cell noted. ASPIRATE CLOT FINDINGS: Site: Not specified Marrow Particles: Many Cellularity %: 80% M/E ratio: Within normal limits Megakaryocytes: Adequate Granuloma(s): 0 Lymphoid aggregate(s): 0 Atypical infiltrate(s): 0 SPECIAL STAINS (with matched controls): Iron: Stainable iron not present Reticulin: Within normal limits PAS: Highlights myeloid elements and megakaryocytes. ADDENDUM FISH BCR/ABL1 REPORT FROM [facility] INTERPRETATION: BCR/ABL gene rearrangement is detected. RESULTS: BCR/ABL1 Normal Nuclei Positive Nuclei with Dual Fusion 3.33% 96.67% CYTOGENETICS REPORT FROM [facility] INTERPRETATION: Abnormal male karyotype was observed in twenty metaphases analyzed. 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 Bosutinib to start July 2022. [facility] Medical History Atherosclerosis of coronary artery of [place] heart without angina pectoris Encounter for screening for malignant neoplasm of lung in current smoker with 30 pack year history or greater Essential (primary) hypertension Fatigue Fracture of great toe, right, open Hiatal hernia with GERD History of back problems History of ST elevation myocardial infarction (STEMI) (01/20/17) Hyperlipidemia Leukocytosis Near syncope Nicotine dependence Obesity (BMI 30.0-34.9) 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) Pneumonia Tobacco use disorder, continuous Unspecified injury of right foot, sequela Surgical History History of bilateral inguinal hernia repair (08/2018) History of bone marrow biopsy (04/13/20) History of coronary artery stent placement (01/20/17) Status post laparoscopic Migue fundoplication (10/15/18) Family History Father Colon cancer Diabetes Heart disease Hypertension CAD (coronary artery disease) Sister Breast cancer Mother CAD (coronary artery disease) Hypertension Heart disease Social History household members: spouse Smoking Status: Current every day smoker tobacco type: cigarettes Tobacco: How many years used: 40 Electronic Cigarette Use: not used second hand exposure: No quit status: considering quitting counseling given: provider counseling alcohol intake: current alcohol intake frequency: a few times a week Alcohol type: beer substance use type: does not use well-balanced diet: about half the time uyen/latter-day: Latter Day seatbelt use: always do you feel safe at home: Yes ROS Constitutional Constitutional: Reports systems reviewed and no addt'l complaints, except as documented; Denies fatigue, fever(s) or weight loss Eyes Eyes: Reports systems reviewed and no addt'l complaints, except as documented ENT HEENT: Reports systems reviewed and no addt'l complaints, except as documented; Denies headache(s), mouth lesions or mucositis Cardiovascular Cardiovascular: Reports systems reviewed and no addt'l complaints, except as documented; Denies chest pain with activity or edema Respiratory/Chest Respiratory/Chest: Reports systems reviewed and no addt'l complaints, except as documented, cough, dyspnea on exertion and other Details: Still smokes, was prescribed a bronchodilator inhaler by PCP June 2022 does not appreciate significant improvement, continues to follow-up with pulmonary Gastrointestinal Gastrointestinal: Reports systems reviewed and no addt'l complaints, except as documented; Denies change in bowel habits, diarrhea or nausea Genitourinary Genitourinary: Reports systems reviewed and no addt'l complaints, except as documented; Denies dysuria Musculoskeletal Musculoskeletal: Reports systems reviewed and no addt'l complaints, except as documented, back pain and other Details: Chronic back pain unchanged Integumentary Integumentary: Reports systems reviewed and no addt'l complaints, except as documented and dry skin Neurologic Neurologic: Reports systems reviewed and no addt'l complaints, except as documented; Denies headache(s) or weakness Psychiatric Psychiatric: Reports systems reviewed and no addt'l complaints, except as documented Endocrine Endocrinology: Reports systems reviewed and no addt'l complaints, except as documented Hematologic/Lymphatic Hematologic/Lymphatic: Reports systems reviewed and no addt'l complaints, except as documented; Denies easy bleeding or easy bruising Allergic/Immunologic Allergic/Immunologic: Reports systems reviewed and no addt'l complaints, except as documented Intake Vital Signs 07/04/22 11:35 08/08/22 14:19 08/08/22 14:19 Height 6 ft 6 ft 6 ft Weight: 106.651 kg BMI 31.8 BP 158/90 H Blood Pressure Location Lt brachial Position Sitting Respiration 18 Pulse 61 Pulse Source Monitor Temp 98.4 F Temperature Source Temporal Artery Pulse Oximetry (%) 95 Oxygen Delivery Method room air Intake Accompanied by: Self Is patient in pain?: Yes (daily headaches x1 week) Allergies No Known Allergies Allergy (Verified 08/08/22 14:21) Medications aspirin 81 mg tablet,delayed release 81 mg PO DAILY 09/02/18 [History Confirmed 08/08/22] carvedilol 6.25 mg tablet 6.25 mg PO BID 09/02/18 [History Confirmed 08/08/22] cholecalciferol (vitamin D3) 25 mcg (1,000 unit) capsule 1,000 unit PO DAILY 09/02/18 [History Confirmed 08/08/22] ramipril 2.5 mg capsule 2.5 mg PO DAILY 09/02/18 [History Confirmed 08/08/22] atorvastatin 80 mg tablet 80 mg PO QHS 12/15/19 [History Confirmed 08/08/22] ascorbic acid (vitamin C) 1,000 mg tablet 1,000 mg PO DAILY 04/05/20 [History Confirmed 08/08/22] omega 3-dha 60 mg-epa 90 mg-fish oil 500 mg capsule, delayed release 1 cap PO DAILY 05/12/20 [History Confirmed 08/08/22] vitamin E 200 unit capsule 200 unit PO DAILY 08/25/20 [History Confirmed 08/08/22] benzonatate 100 mg capsule (Tessalpatricia Lipscomb) 100 mg PO BID PRN cough #20 caps 03/18/21 [Rx Confirmed 08/08/22] hydrocodone-acetaminophen 5-325mg 5mg-325mg 1 tab PO Q4H PRN PRN Pain 2 days #10 TABLETS 06/03/22 [Rx Confirmed 08/08/22] meloxicam 7.5 mg tablet 7.5 mg PO DAILY #7 tabs 06/03/22 [Rx Confirmed 08/08/22] fluticasone propionate 110 mcg/actuation HFA aerosol inhaler 1 puff inhalation BID 07/04/22 [History Confirmed 08/08/22] ondansetron HCl 8 mg tablet 8 mg PO Q12H PRN PRN Nausea And Vomiting #60 tabs 08/08/22 [Rx] Central Venous Access Central Venous Access: No Exam Physical Exam Const alert and oriented x3 Constitutional Narrative: ECOG 0-1 General Appearance: cooperative Nutritional Appearance: overweight HEENT normocephalic Head and Scalp: normal to inspection Mouth: oral and palatal mucosa normal Eyes conjunctivae normal and no scleral icterus General Eye: normal appearance of both eyes Neck no lymphadenopathy and no JVD Lymph Lymphatic: no lymphadenopathy noted Chest Chest: symmetrical chest wall rise Resp normal respiratory effort and clear to auscultation bilaterally Auscultation: breath sounds absent right (Small right basal pleural effusion) Cardio regular rate, regular rhythm, S1 normal heart sound, S2 normal heart sound and no murmurs Jugular Venous Distention: Negative for JVD GI soft to palpation, non-tender and non-distended; Negative for hepatosplenomegaly no CVA tenderness Back/Spine no thoracic nor lumbar tenderness Extremity no clubbing, cyanosis or edema Skin no rashes or lesions noted Neuro oriented x3, CN's II-XII intact bilaterally, moves all extremities and no focal motor deficits Coordination / Balance: [id number] test normal Speech: speech normal Gait (Neuro): normal gait Psych mental status grossly normal Coding Level of Care Code Off vis,est,level 4 Exam Problem Focused Diagnoses Chronic myeloid leukemia C92.10 Bilateral pleural effusion J90 Assessment and Plan Assessment and Plan (1) Chronic myeloid leukemia: Status: Chronic (2) Bilateral pleural effusion: Status: Inactive Orders: Orders Comprehensive Metabolic Profil Today C92.10 - Chronic myeloid leukemia, BCR/ABL-positive, not having achieved remission CBC W/Diff, Automated Today C92.10 - Chronic myeloid leukemia, BCR/ABL-positive, not having achieved remission Retic Panel Count Today C92.10 - Chronic myeloid leukemia, BCR/ABL-positive, not having achieved remission Chest PA and Lateral Today C92.10 - Chronic myeloid leukemia, BCR/ABL-positive, not having achieved remission, J90 - 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, not elsewhere classified 12 Lead EKG Today C92.10 - Chronic myeloid leukemia, BCR/ABL-positive, not having achieved remission, Z51.81 - Encounter for therapeutic drug level monitoring Plan 62-year-old male who presented with with a mature neutrophilic leukocytosis first noted January 2020, progressively worsening. He has no known chronic inflammatory or infectious diseases. BCR ABL profile with FISH is positive consistent with chronic myeloid leukemia. No palpably enlarged spleen (within limitation of body size and habitus) at diagnosis,13.4 cm by ultrasound. Bone marrow aspirate and biopsy March 2020 confirmed the diagnosis with a q BCR ABL positivity of 96.67% ELTS score 1.4177 (low risk). * Started TKI therapy with dasatinib April 28, 2020, a decline in WBC/ANC is consistent with a hematologic response within the first month of treatment. . Mild elevation of liver enzymes less than 2 fold resolved and an increasing leukopenia with preserved neutrophil count noted at 4 weeks of treatment also resolved with continued standard dosing. He showed a major molecular response (MMR) to treatment , however October 2021 he showed an upward trend in q. BCR ABL but then declined to </= 0.1 (optimal) to rise again in May 2022. Date qBCR-ABL (e13a2/b2a2) 03/30/2020 159.1086 08/10/2020 0.3342 11/10/2020 0.017 02/08/2021 0.031 05/09/2021 0.0626 08/09/2021 0.0559 11/08/2021 0.2603 12/12/2021 NEG 03/22/2022 0.056 06/20/2022 0.1436 * In May [address] of the chest showed no abnormalities. In May 2022 he was noted to have developed bilateral pleural effusions, suspected Dasatinib side effect. He improved after the pleural tap. June 2022 he was evaluated at [facility] by Dr. Lawton for possible evolving Dasatinib resistance and evaluation was negative. Because of the recurrence of pleural effusions recom mendation was to switch from Dasatinib to Bosutinib. Comorbid conditions: smoker with over 30 pack years cigarettes (started at age 18 averaging 1/2 to 1 pack of cigarettes daily), hypertension, coronary artery disease, cerebrovascular disease and dyslipidemia. Plan: #1-To start bosutinib in July 2022. Will monitor for toxicity on a weekly basis in the first month of therapy. Schedule anticancer therapy teaching session. #2-Update q. BCR/ABL prior to start of new therapy. #3 -Update chest x-ray and EKG #4-Continue to follow-up with pulmonary for work-up and management of reactive airways disease. Encouraged to quit smoking. Patient was seen , impression and plan discussed. Sawyer Delgado MD Transit Driver, [facility] Divisions of Medical Oncology Hematology Department of Internal Medicine [place] [id number] This note was generated using a voice recognition system software. Although it was reviewed by the author prior to finalization, it may still contain incorrect words, spelling, and punctuation that were not noted when reviewing prior to saving. If a clinically significant typo or inaccurately typed phrase is noted, please notify the author. 08/08/22 3143 <Electronically signed by Sawyer Delgado MD> Date Sawyer Delgado MD Cosigner Signature: Date (if applicable) CC: MD Jocelin Canelaon DO Work Phone: Start: 08-06-2022 End: 08-06-2022 Procedure Note: See Note; NOTES: [facility] Pulmonary Services/Neurology [address] [place] [address] MR#: [id number] Acct: [id number] Name: FREDERIC OVALLES Rep #: [id number] : 1960 62 From: Gallito Malcolm MD Referring Dr: Status: REG CLI Location: [facility] Date: 08/06/22 Sex: M C COMPLETE PULMONARY FUNCTION TEST INTERPRETATION Brief HPI: Patient is a 62-year-old male, currently under the care of Dr. Brooks, who presents to [facility] for complete pulmonary function tests secondary to diagnosis of dyspnea. Respiratory therapist reports good effort and reproducible results. Interpretation: Forced expiration spirometry shows a severe large airways obstructive ventilatory defect with an FEV1 of 49% predicted. There is a significant bronchodilator response in FVC and FEV1 by strict ATS criteria. Spirograms are of good quality and plateau slowly, indicating slowly emptying areas of the lungs. The respiratory flow volume loop shows decreased expiratory flow rates at all lung volumes consistent with airway obstruction. Lung volumes by body plethysmography show a decreased total lung capacity at 4.76 L, 67% predicted. FRC and RV are elevated out of proportion. Lung volume measurements are trending to air-trapping, but do not meet strict ATS criteria. Diffusion capacity by carbon monoxide is normal at 104% predicted. The airway resistance is elevated. No previous pulmonary function tests were available for review. Impression: Partially reversible severe mixed ventilatory defect with relatively preserved diffusing capacity 08/06/22 1020 <Electronically signed by Gallito Malcolm MD> Date Gallito Malcolm MD CC: Dr. Gallito Malcolm MD; Dr. John Brooks DO; Dr. Jocelin Saunders DO Date Dictated: 08/06/22 1018 Date Transcribed: 08/06/22 1018 Wool Supplier: MADAY Signed Jocelin Saunders DO Work Phone: Start: 07-09-2022 End: 07-09-2022 Procedure Note: See Note; NOTES: [facility] Pul[facility] Medicine [facility] [place] [address] [place] [address] OFFICE VISIT Date of Service: 07/09/22 MR#: [id number] Acct: [id number] Name: FREDERIC OVALLES Rep #: [id number] : 1960 Provider: Dr. John Brooks DO Age/Sex: 62/M Location: [facility] – [place] Status: Signed Assessment and Plan Assessment and Plan (1) SOB (shortness of breath): Status: Acute Plan: The patient has shortness of breath, which she has been experiencing since May 2022. Previously, he was identified as having bilateral pleural effusions, right greater than left, for which she underwent ultrasound-guided thoracentesis. The patient's effusion was lymphocyte predominant and negative for malignancy. He has a known history of CML and is currently on therapy with Dasatinib. This raises the possibility that the patient could be experiencing medication induced pleural effusion. His shortness of breath could certainly be the consequence of recurrent effusion in the setting of therapy for his underlying malignancy. However, given his prolonged smoking history, I am going to plan to obtain baseline pulmonary function studies to evaluate for underlying obstructive lung disease. In addition, a 6-minute walk test will be completed to assess for any exertional hypoxemia. The patient's inhaler regimen can be further augmented/changed at his follow-up office visit, pending the outcome of his PFTs. (2) Nicotine dependence, cigarettes, uncomplicated: Status: Acute Plan: Tobacco cessation counseling was provided. (3) 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: Status: Acute Plan: Most likely secondary to Dasatinib utilization. It is unclear as to whether an alternative therapy may be appropriate. I will defer this decision making to oncology. Orders: Orders Pulmonary Function Test (Comp) Today R06.02 - Shortness of breath Simple Pulmonary Exercise Test Today R06.02 - Shortness of breath Plan Details Follow Up: 6 Weeks HPI HPI Comments Details: The patient is a 62-year-old male who presents to the clinic today in referral for the evaluation of "water on his lungs". The patient reported that he has been experiencing shortness of breath since May 2022. At that time, the patient was evaluated in the emergency department and was noted to have bilateral pleural effusions. He ultimately underwent an ultrasound-guided thoracentesis of the right hemithorax with 1.9 L of fluid removed on June 04. The fluid itself was lymphocyte predominant. Cytology was consistent with a lymphocytic effusion, which was negative for malignant cells. The patient is currently being treated for CML by Dr. Delgado. There has been some concern that the patient's Dasatinib could potentially be causing the pleural effusion. The patient does have an approximate [id number] smoking history and continues to smoke 0.25 packs of cigarettes per day. In addition, he did grow up in a smoking household. 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 He currently denies any chest tightness, wheezing or cough. The patient was apparently started on inhalers by his PCP. However, he has never completed pulmonary function studies. He does report some improvement in his shortness of breath with the use of the inhalers. He denies any fevers, chills or night sweats. His weight and appetite have been stable. Intake Vital Signs 06/04/22 08:45 07/09/22 06:39 07/09/22 08:12 Height 6 ft 6 ft 6 ft Weight: 235 lb 6 oz BMI 31.9 BP 128/74 H Blood Pressure Location Rt brachial Position Sitting Respiration 20 H Pulse 72 Pulse Source Monitor Temp 97.5 F L Temperature Source Temporal Artery Pulse Oximetry (%) 93 Oxygen Delivery Method room air Intake Visit Reasons: WATER ON LUNGS Chief Complaint: Chronic myeloid leukemia on treatment Price Accuracy Supervisor Required: No DME Vendor: n/a Accompanied by: Self Is patient in pain?: No Allergies No Known Allergies Allergy (Verified 07/09/22 08:13) Medications aspirin 81 mg tablet,delayed release 81 mg PO DAILY 09/02/18 [History Confirmed 07/09/22] carvedilol 6.25 mg tablet 6.25 mg PO BID 09/02/18 [History Confirmed 07/09/22] cholecalciferol (vitamin D3) 25 mcg (1,000 unit) capsule 1,000 unit PO DAILY 09/02/18 [History Confirmed 07/09/22] ramipril 2.5 mg capsule 2.5 mg PO DAILY 09/02/18 [History Confirmed 07/09/22] atorvastatin 80 mg tablet 80 mg PO QHS 12/15/19 [History Confirmed 07/09/22] ascorbic acid (vitamin C) 1,000 mg tablet 1,000 mg PO DAILY 04/05/20 [History Confirmed 07/09/22] omega 3-dha 60 mg-epa 90 mg-fish oil 500 mg capsule, delayed release 1 cap PO DAILY 05/12/20 [History Confirmed 07/09/22] dasatinib 100 mg tablet 100 mg PO DAILY 07/13/20 [History Confirmed 07/09/22] vitamin E 200 unit capsule 200 unit PO DAILY 08/25/20 [History Confirmed 07/09/22] benzonatate 100 mg capsule (Tessalon Perles) 100 mg PO BID PRN cough #20 caps 03/18/21 [Rx Confirmed 07/09/22] dasatinib 100 mg tablet (Sprycel) 100 mg PO DAILY 30 days #30 tabs 03/07/22 [Rx Confirmed 07/09/22] hydrocodone-acetaminophen 5-325mg 5mg-325mg 1 tab PO Q4H PRN PRN Pain 2 days #10 TABLETS 06/03/22 [Rx Confirmed 07/09/22] meloxicam 7.5 mg tablet 7.5 mg PO DAILY #7 tabs 06/03/22 [Rx Confirmed 07/09/22] fluticasone propionate 110 mcg/actuation HFA aerosol inhaler 1 puff inhalation BID 07/04/22 [History Confirmed 07/09/22] PFSH Medical History Atherosclerosis of coronary artery of [place] heart without angina pectoris Encounter for screening for malignant neoplasm of lung in current smoker with 30 pack year history or greater Essential (primary) hypertension Fatigue Fracture of great toe, right, open Hiatal hernia with GERD History of back problems History of ST elevation myocardial infarction (STEMI) (01/20/17) Hyperlipidemia Leukocytosis Near syncope Nicotine dependence Obesity (BMI 30.0-34.9) 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) Pneumonia Tobacco use disorder, continuous Unspecified injury of right foot, sequela Surgical History History of bilateral inguinal hernia repair (08/2018) History of bone marrow biopsy (04/13/20) History of coronary artery stent placement (07/02/17) Status post laparoscopic Migue fundoplication (10/15/18) Family History Father Colon cancer Diabetes Heart disease Hypertension CAD (coronary artery disease) Sister Breast cancer Mother CAD (coronary artery disease) Hypertension Heart disease Social History household members: spouse Smoking Status: Current every day smoker tobacco type: cigarettes Tobacco: How many years used: 40 Electronic Cigarette Use: not used second hand exposure: No quit status: considering quitting counseling given: provider counseling alcohol intake: current alcohol intake frequency: a few times a week Alcohol type: beer substance use type: does not use well-balanced diet: about half the time uyen/latter-day: Latter Day seatbelt use: always do you feel safe at home: Yes Review of Systems Resp Respiratory: Yes as per HPI Exam Const Constitutional: Positive conversant, cooperative, in no acute respiratory distress, well developed, well nourished, good hygiene and obese Head Head: Yes normocephalic and Yes atraumatic Eyes Eye: Positive clear conjunctiva; Negative nystagmus or scleral abnormality Ears Ear: Positive hearing normal and external ears normal Nose Nose: Yes external nose normal Mouth Mouth: Positive oral mucosae normal Neck Neck: Positive normal visual inspection and trachea midline; Negative lymphadenopathy Chest Wall Chest: Positive symmetric chest movement Normal AP diameter. Resp lung sounds: Positive diminished lung sounds diminished: Positive lower and right; Negative wheezes, rhonchi or rales Cardio Cardiac: Positive regular rate, regular rhythm, S1 normal and S2 normal; Negative murmur, rub or gallop GI GI: Positive normal bowel sounds and obese Soft without distention Genitourinary: Positive deferred Musc Musculoskeletal: Positive steady gait Skin Pulmonary Skin Exam: Positive intact; Negative lesion, rash, ulcers or dermal atrophy Pulses Pulse: Yes Pedal pulses present: Extremities Extremities: No clubbing, No cyanosis and No edema Neuro Neurologic: Yes no focal neuro deficits, Yes conversant and Yes cooperative Lymph Lymphatic: No lymphadenopathy Psych Appearance: Positive grossly normal Mental Status: Positive mental status grossly normal Mood: Positive congruent mood Affect: Positive normal affect Coding Level of Care Code Off vis,new,level 4 Diagnoses SOB (shortness of breath) R06.02 Nicotine dependence, cigarettes, uncomplicated F17.210 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 J90 07/09/22 1241 <Electronically signed by John Brooks DO> Date John Brooks DO Cosigner Signature: Date (if applicable) CC: Jocelin Saunders DO Work Phone: Start: 07-04-2022 End: 07-04-2022 Procedure Note: See Note; NOTES: [facility] [address] [place] [address] OFFICE VISIT Date of Service: 07/04/22 1127 MR#: [id number] Acct: [id number] Name: FREDERIC OVALLES Rep #: [id number] : 1960 From: Sawyer Delgado MD Age/Sex: 62/M Location: [facility] – [place] Status: Signed HPI Subjective Date of Service 06/11/22 Chief Complaint Chronic myeloid leukemia on treatment History of Present Illness 62-year-old gentleman with no known chronic inflammatory or infectious diseases referred in consultation because of a persistent leukocytosis. March 2020 peripheral blood BCR ABL by FISH was positive consistent with chronic myeloid leukemia. Bone marrow aspirate and biopsy April 13, 2020: BONE MARROW DIAGNOSIS Bone marrow biopsy, clot and aspiration (specimens A-C): Hypercellular bone marrow. No stainable iron identified. No evidence of lymphoproliferative disorder. See comment. COMMENT Flow cytometry analysis reveals no increased blasts population. However, myeloid elements exhibit aberrant expression of CD56 and show left shift with down-regulation of CD10 and CD16. The findings are compatible with an underlying primary myeloid neoplasm. The flow cytometry analysis report from [facility] is reviewable in the patient???s EMR. BONE MARROW STUDY Slides are reviewed. CBC DATE: 04/13/20 WBC 22.5; RBC 5.33; HGB 15.8; HCT 48.5; MCV 91.0; RDW 48.2; PLTS 206,000 SEGS 54%; LYMPHS 23%; MONOS 11%; EOS 2%; BASOS 0% PERIPHERAL SMEAR: Submitted. RBC: Normochromic, normomorphic WBC: Neutrophilic leukocytosis with slight left shift. PLTS: Normomorphic BONE MARROW ASPIRATE DIFFERENTIAL: 200 cell count. Blasts % (normal 0-2): 2 Promyelocytes % (normal 1-5): 5 Myelocytes and metamyelocytes % (normal 17-41): 38 Bands and Segs % (normal 15-32): 26 Eos % (normal 1-6): 2 Basos % (normal 0-1): 0 Monocytes % (normal 0-4): 2 Erythroid Precursors % (normal 17-35): 18 Lymphocytes % (normal 7-13): 7 Plasma Cells % (normal 0-2): 0 ASPIRATE FINDINGS: Site: Not specified Paucispicular Cellular M/E ratio: Within normal limits (Normal 1.5 - 4.0) Megakaryocytes: Adequate Erythropoiesis: Progressive Granulopoiesis: Normoblastic CORE BIOPSY FINDINGS: Site: Not specified Adequacy: No bone present Cellularity %: Not applicable M/E ratio: Not applicable Blood Only rare marrow cell noted. ASPIRATE CLOT FINDINGS: Site: Not specified Marrow Particles: Many Cellularity %: 80% M/E ratio: Within normal limits Megakaryocytes: Adequate Granuloma(s): 0 Lymphoid aggregate(s): 0 Atypical infiltrate(s): 0 SPECIAL STAINS (with matched controls): Iron: Stainable iron not present Reticulin: Within normal limits PAS: Highlights myeloid elements and megakaryocytes. ADDENDUM FISH BCR/ABL1 REPORT FROM [facility] INTERPRETATION: BCR/ABL gene rearrangement is detected. RESULTS: BCR/ABL1 Normal Nuclei Positive Nuclei with Dual Fusion 3.33% 96.67% CYTOGENETICS REPORT FROM [facility] INTERPRETATION: Abnormal male karyotype was observed in twenty metaphases analyzed. 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] Treatment: Dasatinib 100 mg daily April 28, 2020- [facility] Medical History Atherosclerosis of coronary artery of [place] heart without angina pectoris Encounter for screening for malignant neoplasm of lung in current smoker with 30 pack year history or greater Essential (primary) hypertension Fatigue Fracture of great toe, right, open Hiatal hernia with GERD History of back problems History of ST elevation myocardial infarction (STEMI) (01/20/17) Hyperlipidemia Leukocytosis Near syncope Nicotine dependence Obesity (BMI 30.0-34.9) 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) Pneumonia Tobacco use disorder, continuous Unspecified injury of right foot, sequela Surgical History History of bilateral inguinal hernia repair (08/2018) History of bone marrow biopsy (04/13/20) History of coronary artery stent placement (01/20/17) Status post laparoscopic Migue fundoplication (10/15/18) Family History Father Colon cancer Diabetes Heart disease Hypertension CAD (coronary artery disease) Sister Breast cancer Mother CAD (coronary artery disease) Hypertension Heart disease Social History household members: spouse Smoking Status: Current every day smoker tobacco type: cigarettes Tobacco: How many years used: 40 Electronic Cigarette Use: not used second hand exposure: No quit status: considering quitting counseling given: provider counseling alcohol intake: current alcohol intake frequency: a few times a week Alcohol type: beer substance use type: does not use well-balanced diet: about half the time uyen/latter-day: Latter Day seatbelt use: always do you feel safe at home: Yes ROS Constitutional Constitutional: Reports systems reviewed and no addt'l complaints, except as documented; Denies fatigue, fever(s) or weight loss Eyes Eyes: Reports systems reviewed and no addt'l complaints, except as documented ENT HEENT: Reports systems reviewed and no addt'l complaints, except as documented; Denies headache(s), mouth lesions or mucositis Cardiovascular Cardiovascular: Reports systems reviewed and no addt'l complaints, except as documented; Denies chest pain with activity or edema Respiratory/Chest Respiratory/Chest: Reports systems reviewed and no addt'l complaints, except as documented, cough, dyspnea on exertion and other Details: Still smokes, was prescribed a bronchodilator inhaler by PCP June 2022 does not appreciate significant improvement Gastrointestinal Gastrointestinal: Reports systems reviewed and no addt'l complaints, except as documented; Denies change in bowel habits, diarrhea or nausea Genitourinary Genitourinary: Reports systems reviewed and no addt'l complaints, except as documented; Denies dysuria Musculoskeletal Musculoskeletal: Reports systems reviewed and no addt'l complaints, except as documented, back pain and other Details: Chronic back pain unchanged Integumentary Integumentary: Reports systems reviewed and no addt'l complaints, except as documented and dry skin Neurologic Neurologic: Reports systems reviewed and no addt'l complaints, except as documented; Denies headache(s) or weakness Psychiatric Psychiatric: Reports systems reviewed and no addt'l complaints, except as documented Endocrine Endocrinology: Reports systems reviewed and no addt'l complaints, except as documented Hematologic/Lymphatic Hematologic/Lymphatic: Reports systems reviewed and no addt'l complaints, except as documented; Denies easy bleeding or easy bruising Allergic/Immunologic Allergic/Immunologic: Reports systems reviewed and no addt'l complaints, except as documented Intake Vital Signs 04/04/22 10:41 06/11/22 13:04 07/04/22 11:29 07/04/22 11:35 Height 6 ft 6 ft 6 ft 6 ft Weight: 107.048 kg 107.728 kg BMI 32.0 32.2 BP 137/83 H 152/66 H Blood Pressure Location Rt brachial Rt brachial Position Sitting Sitting Respiration 16 22 H Pulse 83 69 Pulse Source Monitor Monitor Temp 97.8 F 99 F Temperature Source Temporal Artery Temporal Artery Pulse Oximetry (%) 93 94 Oxygen Delivery Method room air room air Intake Accompanied by: Self Is patient in pain?: No Allergies No Known Allergies Allergy (Verified 07/04/22 11:32) Medications aspirin 81 mg tablet,delayed release 81 mg PO DAILY 09/02/18 [History Confirmed 07/04/22] carvedilol 6.25 mg tablet 6.25 mg PO BID 09/02/18 [History Confirmed 07/04/22] cholecalciferol (vitamin D3) 25 mcg (1,000 unit) capsule 1,000 unit PO DAILY 09/02/18 [History Confirmed 07/04/22] ramipril 2.5 mg capsule 2.5 mg PO DAILY 09/02/18 [History Confirmed 07/04/22] atorvastatin 80 mg tablet 80 mg PO QHS 12/15/19 [History Confirmed 07/04/22] ascorbic acid (vitamin C) 1,000 mg tablet 1,000 mg PO DAILY 04/05/20 [History Confirmed 07/04/22] ondansetron HCl 8 mg tablet 8 mg PO Q8H PRN PRN Nausea/Emesis #30 tabs 05/05/20 [Rx Confirmed 07/04/22] omega 3-dha 60 mg-epa 90 mg-fish oil 500 mg capsule, delayed release 1 cap PO DAILY 05/12/20 [History Confirmed 07/04/22] dasatinib 100 mg tablet 100 mg PO DAILY 07/13/20 [History Confirmed 07/04/22] vitamin E 200 unit capsule 200 unit PO DAILY 08/25/20 [History Confirmed 07/04/22] benzonatate 100 mg capsule (Tessalon Perlamelie) 100 mg PO BID PRN cough #20 caps 03/18/21 [Rx Confirmed 07/04/22] doxycycline hyclate 100 mg tablet 100 mg PO BID #14 tabs 03/18/21 [Rx Confirmed 07/04/22] dasatinib 100 mg tablet (Sprycel) 100 mg PO DAILY 30 days #30 tabs 03/07/22 [Rx Confirmed 07/04/22] hydrocodone-acetaminophen 5-325mg 5mg-325mg 1 tab PO Q4H PRN PRN Pain 2 days #10 TABLETS 06/03/22 [Rx Confirmed 07/04/22] meloxicam 7.5 mg tablet 7.5 mg PO DAILY #7 tabs 06/03/22 [Rx Confirmed 07/04/22] fluticasone propionate 110 mcg/actuation HFA aerosol inhaler 1 puff inhalation BID 07/04/22 [History Confirmed 07/04/22] Central Venous Access Central Venous Access: No Laboratory Tests 04/28/20 06/20/22 12:25 09:25 WBC 31.4 H* 7.6 Hgb 15.0 15.3 Plt Count 196 288 Absolute Neuts (auto) 19.4 H 5.5 Absolute Lymphs (auto) 1.12 Exam Physical Exam Const alert and oriented x3 Constitutional Narrative: ECOG 0-1 General Appearance: cooperative Nutritional Appearance: overweight HEENT normocephalic Head and Scalp: normal to inspection Mouth: oral and palatal mucosa normal Eyes conjunctivae normal and no scleral icterus General Eye: normal appearance of both eyes Neck no lymphadenopathy and no JVD Lymph Lymphatic: no lymphadenopathy noted Chest Chest: symmetrical chest wall rise Resp normal respiratory effort and clear to auscultation bilaterally Auscultation: breath sounds absent bilateral (Right base, small effusion) Cardio regular rate, regular rhythm, S1 normal heart sound, S2 normal heart sound and no murmurs Jugular Venous Distention: Negative for JVD GI soft to palpation, non-tender and non-distended; Negative for hepatosplenomegaly no CVA tenderness Back/Spine no thoracic nor lumbar tenderness Extremity no clubbing, cyanosis or edema Skin no rashes or lesions noted Neuro oriented x3, CN's II-XII intact bilaterally, moves all extremities and no focal motor deficits Coordination / Balance: [id number] test normal Speech: speech normal Gait (Neuro): normal gait Psych mental status grossly normal Coding Level of Care Code Off vis,est,level 4 Exam Problem Focused Diagnoses Chronic myeloid leukemia C92.10 Bilateral pleural effusion J90 Assessment and Plan Assessment and Plan (1) Chronic myeloid leukemia: Status: Chronic (2) Bilateral pleural effusion: Status: Inactive Plan 62-year-old male who presented with with a mature neutrophilic leukocytosis first noted January 2020, progressively worsening. He has no known chronic inflammatory or infectious diseases. BCR ABL profile with FISH is positive consistent with chronic myeloid leukemia. No palpably enlarged spleen (within limitation of body size and habitus) at diagnosis,13.4 cm by ultrasound. Bone marrow aspirate and biopsy March 2020 confirmed the diagnosis with a q BCR ABL positivity of 96.67% ELTS score 1.4177 (low risk). * Started TKI therapy with dasatinib April 28, 2020, a decline in WBC/ANC is consistent with a hematologic response within the first month of treatment. Treatment is tolerated with no grade 3 or 4 toxicities. Mild elevation of liver enzymes less than 2 fold resolved and an increasing leukopenia with preserved neutrophil count noted at 4 weeks of treatment also resolved with continued standard dosing. He showed a major molecular response (MMR) to treatment , however October 2021 he showed an upward trend in q. BCR ABL but then declined to </= 0.1 (optimal) to rise again in May 2022. Date qBCR-ABL (e13a2/b2a2) 03/30/2020 159.1086 08/10/2020 0.3342 11/10/2020 0.017 02/08/2021 0.031 05/09/2021 0.0626 08/09/2021 0.0559 11/08/2021 0.2603 12/12/2021 NEG 03/22/2022 0.056 06/20/2022 0.1436 * In May [address] of the chest showed no abnormalities. In April and then May 2022 he developed 2 "viral illnesses", then developed increasing shortness of breath and was found to have no bilateral pleural effusions the larger one was on the right side. Almost 2 L of fluid were drained, lymphocytic, no malignant cells identified and he had significant improvement in his dyspnea after thoracocentesis. Fluid microbiology was negative for bacteria. It is indeterminate at this time whether these effusions are post viral illness or a side effect of Dasatinib. A follow-up chest x-ray June 2022 shows a small right pleural effusion. Comorbid conditions: smoker with over 30 pack years cigarettes (started at age 18 averaging 1/2 to 1 pack of cigarettes daily), hypertension, coronary artery disease, cerebrovascular disease and dyslipidemia. Plan: #1-Continue dasatinib standard dose and referred to [facility] for an opinion regarding warning of failure of response to TKI. #2-For pleural effusion if there is a recurrent pleural effusion we may consider changing therapy to an alternate TKI with less incidence of fluid retention and pleural effusions if evolving TKI resistance is ruled out. #3 -Lung cancer screening : He is up-to-date, next CT of the chest May 2023 . #4-Residual cough and dyspnea on exertion, continues to smoke, was started by PCP on a bronchodilator inhaler June 2022 and to follow-up in a month. Patient was seen , impression and plan discussed. Sawyer Delgado MD Transit Driver, [facility] Divisions of Medical Oncology Hematology Department of Internal Medicine [place] [id number] This note was generated using a voice recognition system software. Although it was reviewed by the author prior to finalization, it may still contain incorrect words, spelling, and punctuation that were not noted when reviewing prior to saving. If a clinically significant typo or inaccurately typed phrase is noted, please notify the author. 07/04/22 1222 <Electronically signed by Sawyer Delgado MD> Date Sawyer Delgado MD Cosign Signature: Date (if applicable) CC: Dr. Katelyn Lawton MD; DO Jocelin Wiseman DO Work Phone: Start: 07-03-2022 Plain chest X-ray Dr. Jocelin Saunders Work Phone: Start: 07-03-2022 End: 07-03-2022 Procedure Note: See Note; NOTES: [facility] Imaging Services [address] [place] [id number] Chest PA and Lateral MR#: [id number] Acct: [id number] Name: FREDERIC OVALLES Rep #: [id number] : 1960 M 62 From: Jeovanny medeiros MD PCP: Dr. Jocelin Saunders DO Status: REG CLI Study: Chest PA and Lateral Date of Exam: 07/03/22 Exam# [id number] Ordering Dr: Sawyer Delgado MD STUDY: X-RAY CHEST REASON FOR EXAM: Male, 62 years old. f/u pleural effusions TECHNIQUE: PA and lateral views of the chest. COMPARISON: Comparison is made with prior study dated 06/04/2022. FINDINGS: Since prior study, there is a small right pleural effusion with right basilar atelectasis. Mild degree of atelectasis is also seen at the left lung base with blunting of the left costophrenic angle. Normal size heart. There are calcified mediastinal lymph nodes. Normal visualized pulmonary arteries. Normal visualized aortic arch and descending thoracic aorta. There are degenerative changes of the visualized thoracic spine. Normal visualized ribs, clavicles, and shoulders. There is no demonstrated abnormality of the visualized soft tissue structures of the upper abdomen. RAD/Chest PA and Lateral IMPRESSION: Small right pleural effusion with underlying infiltration and/or atelectasis. Mild blunting of the left costophrenic angle with mild increased markings at the left lung base. Electronically Signed: Jeovanny Swan MD at 11:09 EST , CC: Dr. Jocelin Saunders DO; Dr. Sawyer Delgado MD Wool Supplier: Signed Sawyer Delgado Work Phone: Start: 06-11-2022 End: 06-11-2022 Procedure Note: See Note; NOTES: [facility] [address] [place] [id number] OFFICE VISIT Date of Service: 06/11/22 1259 MR#: [id number] Acct: [id number] Name: FREDERIC OVALLES Rep #: [id number] : 1960 From: Sawyer Delgado MD Age/Sex: 61/M Location: [facility] – [place] Status: Signed HPI Subjective Date of Service 06/11/22 Chief Complaint Chronic myeloid leukemia on treatment History of Present Illness 61-year-old gentleman with no known chronic inflammatory or infectious diseases referred in consultation because of a persistent leukocytosis. March 2020 peripheral blood BCR ABL by FISH was positive consistent with chronic myeloid leukemia. Bone marrow aspirate and biopsy April 13, 2020: BONE MARROW DIAGNOSIS Bone marrow biopsy, clot and aspiration (specimens A-C): Hypercellular bone marrow. No stainable iron identified. No evidence of lymphoproliferative disorder. See comment. COMMENT Flow cytometry analysis reveals no increased blasts population. However, myeloid elements exhibit aberrant expression of CD56 and show left shift with down-regulation of CD10 and CD16. The findings are compatible with an underlying primary myeloid neoplasm. The flow cytometry analysis report from [facility] is reviewable in the patient???s EMR. BONE MARROW STUDY Slides are reviewed. CBC DATE: 04/13/20 WBC 22.5; RBC 5.33; HGB 15.8; HCT 48.5; MCV 91.0; RDW 48.2; PLTS 206,000 SEGS 54%; LYMPHS 23%; MONOS 11%; EOS 2%; BASOS 0% PERIPHERAL SMEAR: Submitted. RBC: Normochromic, normomorphic WBC: Neutrophilic leukocytosis with slight left shift. PLTS: Normomorphic BONE MARROW ASPIRATE DIFFERENTIAL: 200 cell count. Blasts % (normal 0-2): 2 Promyelocytes % (normal 1-5): 5 Myelocytes and metamyelocytes % (normal 17-41): 38 Bands and Segs % (normal 15-32): 26 Eos % (normal 1-6): 2 Basos % (normal 0-1): 0 Monocytes % (normal 0-4): 2 Erythroid Precursors % (normal 17-35): 18 Lymphocytes % (normal 7-13): 7 Plasma Cells % (normal 0-2): 0 ASPIRATE FINDINGS: Site: Not specified Paucispicular Cellular M/E ratio: Within normal limits (Normal 1.5 - 4.0) Megakaryocytes: Adequate Erythropoiesis: Progressive Granulopoiesis: Normoblastic CORE BIOPSY FINDINGS: Site: Not specified Adequacy: No bone present Cellularity %: Not applicable M/E ratio: Not applicable Blood Only rare marrow cell noted. ASPIRATE CLOT FINDINGS: Site: Not specified Marrow Particles: Many Cellularity %: 80% M/E ratio: Within normal limits Megakaryocytes: Adequate Granuloma(s): 0 Lymphoid aggregate(s): 0 Atypical infiltrate(s): 0 SPECIAL STAINS (with matched controls): Iron: Stainable iron not present Reticulin: Within normal limits PAS: Highlights myeloid elements and megakaryocytes. ADDENDUM FISH BCR/ABL1 REPORT FROM [facility] INTERPRETATION: BCR/ABL gene rearrangement is detected. RESULTS: BCR/ABL1 Normal Nuclei Positive Nuclei with Dual Fusion 3.33% 96.67% CYTOGENETICS REPORT FROM [facility] INTERPRETATION: Abnormal male karyotype was observed in twenty metaphases analyzed. 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 Then was seen at [facility] emergency room June 03, 2022 with increasing dyspnea and was found to have bilateral pleural effusions more on the right. After thoracocentesis June 04, 2022 feels back to normal. [facility] Medical History Atherosclerosis of coronary artery of [place] heart without angina pectoris Encounter for screening for malignant neoplasm of lung in current smoker with 30 pack year history or greater Essential (primary) hypertension Fatigue Fracture of great toe, right, open Hiatal hernia with GERD History of back problems History of ST elevation myocardial infarction (STEMI) (01/20/17) Hyperlipidemia Leukocytosis Near syncope Nicotine dependence Obesity (BMI 30.0-34.9) 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) Pneumonia Tobacco use disorder, continuous Unspecified injury of right foot, sequela Surgical History History of bilateral inguinal hernia repair (08/2018) History of bone marrow biopsy (04/13/20) History of coronary artery stent placement (01/20/17) Status post laparoscopic Miuge fundoplication (10/15/18) Family History Father Colon cancer Diabetes Heart disease Hypertension CAD (coronary artery disease) Sister Breast cancer Mother CAD (coronary artery disease) Hypertension Heart disease Social History household members: spouse Smoking Status: Current every day smoker tobacco type: cigarettes Tobacco: How many years used: 40 Electronic Cigarette Use: not used second hand exposure: No quit status: considering quitting counseling given: provider counseling alcohol intake: current alcohol intake frequency: a few times a week Alcohol type: beer substance use type: does not use well-balanced diet: about half the time uyen/latter-day: Latter Day seatbelt use: always do you feel safe at home: Yes ROS Constitutional Constitutional: Reports systems reviewed and no addt'l complaints, except as documented; Denies fatigue, fever(s) or weight loss Eyes Eyes: Reports systems reviewed and no addt'l complaints, except as documented ENT HEENT: Reports systems reviewed and no addt'l complaints, except as documented; Denies headache(s), mouth lesions or mucositis Cardiovascular Cardiovascular: Reports systems reviewed and no addt'l complaints, except as documented; Denies chest pain with activity or edema Respiratory/Chest Respiratory/Chest: Reports systems reviewed and no addt'l complaints, except as documented; Denies cough or dyspnea on exertion Gastrointestinal Gastrointestinal: Reports systems reviewed and no addt'l complaints, except as documented; Denies change in bowel habits, diarrhea or nausea Genitourinary Genitourinary: Reports systems reviewed and no addt'l complaints, except as documented; Denies dysuria Musculoskeletal Musculoskeletal: Reports systems reviewed and no addt'l complaints, except as documented, back pain and other Details: Chronic back pain unchanged Integumentary Integumentary: Reports systems reviewed and no addt'l complaints, except as documented and dry skin Neurologic Neurologic: Reports systems reviewed and no addt'l complaints, except as documented and other; Denies headache(s) or weakness Psychiatric Psychiatric: Reports systems reviewed and no addt'l complaints, except as documented Endocrine Endocrinology: Reports systems reviewed and no addt'l complaints, except as documented Hematologic/Lymphatic Hematologic/Lymphatic: Reports systems reviewed and no addt'l complaints, except as documented; Denies easy bleeding or easy bruising Allergic/Immunologic Allergic/Immunologic: Reports systems reviewed and no addt'l complaints, except as documented Intake Vital Signs 06/04/22 08:45 06/11/22 12:59 06/11/22 13:04 Height 6 ft 6 ft 6 ft Weight: 107.048 kg BMI 32.0 BP 137/83 H Blood Pressure Location Rt brachial Position Sitting Respiration 16 Pulse 83 Pulse Source Monitor Temp 97.8 F Temperature Source Temporal Artery Pulse Oximetry (%) 93 Oxygen Delivery Method room air Intake Accompanied by: Self Is patient in pain?: Yes (LEFT FOOT) Allergies No Known Allergies Allergy (Verified 06/11/22 13:01) Medications aspirin 81 mg tablet,delayed release 81 mg PO DAILY 09/02/18 [History Confirmed 06/11/22] carvedilol 6.25 mg tablet 6.25 mg PO BID 09/02/18 [History Confirmed 06/11/22] cholecalciferol (vitamin D3) 25 mcg (1,000 unit) capsule 1,000 unit PO DAILY 09/02/18 [History Confirmed 06/11/22] ramipril 2.5 mg capsule 2.5 mg PO DAILY 09/02/18 [History Confirmed 06/11/22] atorvastatin 80 mg tablet 80 mg PO QHS 12/15/19 [History Confirmed 06/11/22] ascorbic acid (vitamin C) 1,000 mg tablet 1,000 mg PO DAILY 04/05/20 [History Confirmed 06/11/22] ondansetron HCl 8 mg tablet 8 mg PO Q8H PRN PRN Nausea/Emesis #30 tabs 05/05/20 [Rx Confirmed 06/11/22] omega 3-dha 60 mg-epa 90 mg-fish oil 500 mg capsule, delayed release 1 cap PO DAILY 05/12/20 [History Confirmed 06/11/22] dasatinib 100 mg tablet 100 mg PO DAILY 07/13/20 [History Confirmed 06/11/22] vitamin E 200 unit capsule 200 unit PO DAILY 08/25/20 [History Confirmed 06/11/22] benzonatate 100 mg capsule (Tessalon Perlamelie) 100 mg PO BID PRN cough #20 caps 03/18/21 [Rx Confirmed 06/11/22] doxycycline hyclate 100 mg tablet 100 mg PO BID #14 tabs 03/18/21 [Rx Confirmed 06/11/22] dasatinib 100 mg tablet (Sprycel) 100 mg PO DAILY 30 days #30 tabs 03/07/22 [Rx Confirmed 06/11/22] hydrocodone-acetaminophen 5-325mg 5mg-325mg 1 tab PO Q4H PRN PRN Pain 2 days #10 TABLETS 06/03/22 [Rx Confirmed 06/11/22] meloxicam 7.5 mg tablet 7.5 mg PO DAILY #7 tabs 06/03/22 [Rx Confirmed 06/11/22] Central Venous Access Central Venous Access: No Exam Physical Exam Const alert and oriented x3 Constitutional Narrative: ECOG 0-1 General Appearance: cooperative Nutritional Appearance: overweight HEENT normocephalic Head and Scalp: normal to inspection Mouth: oral and palatal mucosa normal Eyes conjunctivae normal and no scleral icterus General Eye: normal appearance of both eyes Neck no lymphadenopathy and no JVD Lymph Lymphatic: no lymphadenopathy noted Chest Chest: symmetrical chest wall rise Resp normal respiratory effort and clear to auscultation bilaterally Auscultation: breath sounds absent bilateral (Over the bases consistent with bilateral small pleural effusions) Cardio regular rate, regular rhythm, S1 normal heart sound, S2 normal heart sound and no murmurs Jugular Venous Distention: Negative for JVD GI soft to palpation, non-tender and non-distended; Negative for hepatosplenomegaly no CVA tenderness Back/Spine no thoracic nor lumbar tenderness Extremity no clubbing, cyanosis or edema Skin no rashes or lesions noted Neuro oriented x3, CN's II-XII intact bilaterally, moves all extremities and no focal motor deficits Coordination / Balance: bbzlgg-nz-gwar test normal Speech: speech normal Gait (Neuro): normal gait Psych mental status grossly normal Coding Level of Care Code Off vis,est,level 4 Exam Problem Focused Diagnoses Chronic myeloid leukemia C92.10 Bilateral pleural effusion J90 Assessment and Plan Assessment and Plan (1) Chronic myeloid leukemia: Status: Chronic (2) Bilateral pleural effusion: Status: Acute Orders: Orders Chest PA and Lateral 07/03/22 J90 - 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, not elsewhere classified Plan 62-year-old male who presented with with a mature neutrophilic leukocytosis first noted January 2020, progressively worsening. He has no known chronic inflammatory or infectious diseases. BCR ABL profile with FISH is positive consistent with chronic myeloid leukemia. Bone marrow aspirate and biopsy March 2020 confirmed the diagnosis with a q BCR ABL positivity of 96.67% * Started TKI therapy with dasatinib April 28, 2020, a decline in WBC/ANC is consistent with a hematologic response within the first month of treatment. Treatment is tolerated with no grade 3 or 4 toxicities. Mild elevation of liver enzymes less than 2 fold resolved and an increasing leukopenia with preserved neutrophil count noted at 4 weeks of treatment also resolved with continued standard dosing. He showed a major molecular response (MMR) to treatment , however October 2021 he showed an upward trend in q. BCR ABL but then declined to </= 0.1 (optimal) Date qBCR-ABL (e13a2/b2a2) 03/30/2020 159.1086 08/10/2020 0.3342 11/10/2020 0.017 02/08/2021 0.031 05/09/2021 0.0626 08/09/2021 0.0559 11/08/2021 0.2603 12/12/2021 NEG 03/22/2022 0.056 * In May [address] of the chest showed no abnormalities. In April and then May 2022 he developed 2 "viral illnesses", then developed increasing shortness of breath and was found to have no bilateral pleural effusions the larger one was on the right side. Almost 2 L of fluid were drained, lymphocytic, no malignant cells identified and he had significant improvement in his dyspnea after thoracocentesis. Fluid microbiology was negative for bacteria. It is indeterminate at this time whether these effusions are post viral illness or a side effect of Dasatinib. Comorbid conditions: smoker with over 30 pack years cigarettes (started at age 18 averaging 1/2 to 1 pack of cigarettes daily), hypertension, coronary artery disease, cerebrovascular disease and dyslipidemia. Plan: #1-Continue dasatinib standard dose and follow-up in as scheduled in June 2022 with a repeat q. BCR ABL. If there is a recurrent unexplained pleural effusion we may consider changing therapy to an alternate TKI with less incidence of fluid retention and pleural effusions. #2 -Lung cancer screening : He is up-to-date, next CTA of the chest May 2022 . Patient was seen , impression and plan discussed. Sawyer Delgado MD Transit Driver, [facility] Divisions of Medical Oncology Hematology Department of Internal Medicine [place] [phone] This note was generated using a voice recognition system software. Although it was reviewed by the author prior to finalization, it may still contain incorrect words, spelling, and punctuation that were not noted when reviewing prior to saving. If a clinically significant typo or inaccurately typed phrase is noted, please notify the author. 06/11/22 1416 <Electronically signed by Sawyer Delgado MD> Date Sawyer Delgado MD Cosigner Signature: Date (if applicable) CC: Dr. John Brooks DO; DO Jocelin Wiseman DO Work Phone: Start: 06-04-2022 End: 06-04-2022 Chest Insp/Exp 2 View Procedure Note: See Note; NOTES: [facility] Imaging Services [address] [place] [address] Chest Insp/Exp 2 View MR#: [id number] Acct: [id number] Name: FREDERIC OVALLES Rep #: [id number] : 1960 M 61 From: Jeovanny medeiros MD PCP: Dr. Jocelin Saunders DO Status: REG ER Study: Chest Insp/Exp 2 View Date of Exam: 06/04/22 Exam# [id number] Ordering Dr: Jeovanny Swan STUDY: X-RAY CHEST REASON FOR EXAM: Male, 61 years old. Post thorax TECHNIQUE: AP inspiration and expiration views. COMPARISON: Comparison is made with prior study dated 03/17/2021. FINDINGS: The patient is status post right thoracentesis. There is no evidence of pneumothorax. RAD/Chest Insp/Exp 2 View IMPRESSION: Status post right thoracentesis. There is no evidence of pneumothorax. Electronically Signed: Jeovanny Swan MD at 11:07 EST Reading Location ID and State: [address] [place] [address] , Service support , CC: Dr. Jeovanny Swan MD; Dr. Jocelin Saunders DO Wool Supplier: Signed Jocelin Saunders DO Work Phone: Start: 06-04-2022 Plain chest X-ray Dr. Jocelin Saunders Work Phone: Start: 06-04-2022 End: 06-04-2022 Emergency Department Summary Procedure Note: See Note; NOTES: [facility] Medical Records Department [address] [place] [address] Emergency Department Summary 06/04/22 MR#: [id number] Acct: [id number] Name: FREDERIC OVALLES Rep #: [id number] : 1960 61 From: Hermes Kent MD PCP: Dr. Jocelin Saunders, DO Status:REG ER Location: ED HPI History of Present Illness Chief Complaint: Shortness of Breath Informant: patient Narrative Narrative: Patient has been short of breath for a week or 2, he was seen here yesterday for the same thing. His work-up was negative except for pleural effusions bilaterally worse on the right. He was going to follow-up today Saturday to get an outpatient thoracentesis scheduled this week, however he cannot wait. He was too short of breath lying down and could not sleep, and in addition he has pain in his left flank that is unchanged but hurting him as well. We prescribed him some pain medicine yesterday, he states he has not yet been able to get them filled and that is bothering him too. He denies any new symptoms. 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) Pneumonia Tobacco use disorder, continuous Unspecified injury of right foot, sequela Home Medications aspirin 81 mg tablet,delayed release 81 mg PO DAILY 09/02/18 [History Last Taken 04/12/20] carvedilol 6.25 mg tablet 6.25 mg PO BID 09/02/18 [History Last Taken 04/12/20] cholecalciferol (vitamin D3) 25 mcg (1,000 unit) capsule 1,000 unit PO DAILY 09/02/18 [History Last Taken 04/12/20] ramipril 2.5 mg capsule 2.5 mg PO DAILY 09/02/18 [History Last Taken 04/12/20] atorvastatin 80 mg tablet 80 mg PO QHS 12/15/19 [History Last Taken 04/12/20] ascorbic acid (vitamin C) 1,000 mg tablet 1,000 mg PO DAILY 04/05/20 [History Last Taken 04/12/20] ondansetron HCl 8 mg tablet 8 mg PO Q8H PRN PRN Nausea/Emesis #30 tabs 05/05/20 [Rx Last Taken Unknown] omega 3-dha 60 mg-epa 90 mg-fish oil 500 mg capsule, delayed release 1 cap PO DAILY 05/12/20 [History Last Taken Unknown] dasatinib 100 mg tablet 100 mg PO DAILY 07/13/20 [History Last Taken Unknown] vitamin E 200 unit capsule 200 unit PO DAILY 08/25/20 [History Last Taken Unknown] benzonatate 100 mg capsule (Tessalon Perlamelie) 100 mg PO BID PRN cough #20 caps 03/18/21 [Rx Last Taken Unknown] doxycycline hyclate 100 mg tablet 100 mg PO BID #14 tabs 03/18/21 [Rx Last Taken Unknown] dasatinib 100 mg tablet (Sprycel) 100 mg PO DAILY 30 days #30 tabs 03/07/22 [Rx Last Taken Unknown] hydrocodone-acetaminophen 5-325mg 5mg-325mg 1 tab PO Q4H PRN PRN Pain 2 days #10 TABLETS 06/03/22 [Rx Last Taken Unknown] meloxicam 7.5 mg tablet 7.5 mg PO DAILY #7 tabs 06/03/22 [Rx Last Taken Unknown] Allergy/AdvReac Type Severity Reaction Status Date / Time No Known Allergies Allergy Verified 06/04/22 08:50 Family History Father Colon cancer Diabetes Heart disease Hypertension CAD (coronary artery disease) Sister Breast cancer Mother CAD (coronary artery disease) Hypertension Heart disease Surgical History History of bilateral inguinal hernia repair (08/2018) History of bone marrow biopsy (04/13/20) History of coronary artery stent placement (01/20/17) Status post laparoscopic Migue fundoplication (10/15/18) Social History household members: spouse Smoking Status: Current every day smoker tobacco type: cigarettes Tobacco: How many years used: 40 Electronic Cigarette Use: not used second hand exposure: No quit status: considering quitting counseling given: provider counseling alcohol intake: current alcohol intake frequency: a few times a week Alcohol type: beer substance use type: does not use well-balanced diet: about half the time uyen/latter-day: Latter Day seatbelt use: always do you feel safe at home: Yes ROS ROS ED Constitutional Constitutional ED: Denies chills or fever(s) Eyes Eyes: Denies change in vision or diplopia ENT ENT ED: Denies rhinorrhea or sore throat Cardiovascular Cardiovascular: Reports orthopnea; Denies chest pain or palpitations Respiratory/Chest Respiratory/Chest: Reports cough, dyspnea and orthopnea Gastrointestinal Gastrointestinal: Denies diarrhea, nausea or vomiting Genitourinary Genitourinary ED: Reports flank pain; Denies dysuria or hematuria Musculoskeletal Musculoskeletal: Denies arthralgias or neck pain Integumentary Denies abscess or rash Neurologic Neurologic: Denies headache(s), paresthesias or weakness Psychiatric Psychiatric: Denies anxiety or suicidal thoughts EXAM Physical Exam Const Vital Signs: 06/04/22 08:45 06/04/22 09:49 06/04/22 09:53 Temperature 98.0 F Temperature [1 (Initial Baseline)] Temperature Source Temporal Pulse Rate 88 Pulse Rate [1 (Initial Baseline)] Pulse Rate [2] Pulse Rate [3] Pulse Rate [4] Respiratory Rate 14 Respiratory Rate [1 (Initial Baseline)] Respiratory Rate [2] Respiratory Rate [3] Respiratory Rate [4] Respiratory Effort Respiratory Depth Respiratory Pattern Blood Pressure 155/90 H Blood Pressure [1 (Initial Baseline)] Blood Pressure [2] Blood Pressure [3] Blood Pressure [4] Blood Pressure Mean 111 Pulse Ox 95 83 94 Oxygen Delivery Method Room Air Room Air Nasal Cannula Oxygen Delivery Method [1 (Initial Baseline)] Oxygen Delivery Method [2] Oxygen Delivery Method [3] Oxygen Delivery Method [4] Oxygen Flow Rate (L/min) 5 Oxygen Flow Rate (L/min) [1 (Initial Baseline)] Oxygen Flow Rate (L/min) [2] Oxygen Flow Rate (L/min) [3] 06/04/22 10:18 06/04/22 10:44 06/04/22 11:16 Temperature Temperature [1 (Initial Baseline)] Temperature Source Pulse Rate 83 85 Pulse Rate [1 (Initial Baseline)] Pulse Rate [2] Pulse Rate [3] Pulse Rate [4] Respiratory Rate 19 H 22 H Respiratory Rate [1 (Initial Baseline)] Respiratory Rate [2] Respiratory Rate [3] Respiratory Rate [4] Respiratory Effort Short of Breath Respiratory Depth Deep Respiratory Pattern Tachypnea Blood Pressure 132/78 H 135/87 H Blood Pressure [1 (Initial Baseline)] Blood Pressure [2] Blood Pressure [3] Blood Pressure [4] Blood Pressure Mean 96 103 Pulse Ox 93 92 Oxygen Delivery Method Room Air Nasal Cannula Nasal Cannula Oxygen Delivery Method [1 (Initial Baseline)] Oxygen Delivery Method [2] Oxygen Delivery Method [3] Oxygen Delivery Method [4] Oxygen Flow Rate (L/min) 2 2 Oxygen Flow Rate (L/min) [1 (Initial Baseline)] Oxygen Flow Rate (L/min) [2] Oxygen Flow Rate (L/min) [3] 06/04/22 10:34 06/04/22 12:56 06/04/22 14:24 Temperature Temperature [1 (Initial Baseline)] 98.6 F Temperature Source Pulse Rate 83 82 Pulse Rate [1 (Initial Baseline)] 88 Pulse Rate [2] 85 Pulse Rate [3] 83 Pulse Rate [4] 83 Respiratory Rate 19 H 16 Respiratory Rate [1 (Initial Baseline)] 30 H Respiratory Rate [2] 20 H Respiratory Rate [3] 20 H Respiratory Rate [4] 24 H Respiratory Effort Short of Breath Labored Respiratory Depth Respiratory Pattern Tachypnea Blood Pressure 122/71 H 136/72 H Blood Pressure [1 (Initial Baseline)] 133/78 H Blood Pressure [2] 134/75 H Blood Pressure [3] 129/70 H Blood Pressure [4] 135/75 H Blood Pressure Mean 88 93 Pulse Ox 93 93 Oxygen Delivery Method Nasal Cannula Room Air Oxygen Delivery Method [1 (Initial Baseline)] Nasal Cannula Oxygen Delivery Method [2] Nasal Cannula Oxygen Delivery Method [3] Room Air Oxygen Delivery Method [4] Room Air Oxygen Flow Rate (L/min) 2 Oxygen Flow Rate (L/min) [1 (Initial Baseline)] 5 Oxygen Flow Rate (L/min) [2] 5 Oxygen Flow Rate (L/min) [3] 5 Positive well nourished, well developed and obese General Appearance ED: well developed and NAD Nutritional Appearance: obese HEENT Reports moist mucous membranes normocephalic and atraumatic Eyes PERRL and EOMs intact bilaterally Neck full ROM and supple Resp clear to auscultation bilaterally Resp Narrative: Decreased breath sounds on the right specially at the base. Trachea midline. No distress. Conversive in full sentences. Cardio regular rate, regular rhythm and no murmurs GI non-tender and non-distended GI Narrative: Point tender left side lower ribs, laterally. No abdominal tenderness anteriorly. Auscultation: normoactive bowel sounds Palpation: soft Back/Spine no CVA tenderness and normal to inspection Back/Spine Narrative: Limited range of motion due to pain in the left lateral side, no back tenderness. Extremity normal to inspection General Extremety ED: Negative for edema, pulses abnormal or tenderness General Extremity: Negative for edema or pulses abnormal Neuro oriented x3, CN's II-XII intact bilaterally and no sensory deficits noted Sensorium / Orientation: awake and alert Motor Exam: strength 5/5 throughout Psych Mood Affect: anxious Skin no rashes or lesions noted and no wounds MDM MDM MDM Narrative Medical decision making narrative: Discussed with radiology, the patient will need to be in the ED for several hours prior to being able to have an ultrasound-guided thoracentesis done which is the plan. While he was waiting, his oxygen levels did drop into the high 80s and he was placed on oxygen, he was given analgesics for the pain in his left flank which was thought to be musculoskeletal based on a negative CT abdomen/pelvis we did yesterday. I discussed with oncology, they do want cytology on the fluid, but could not offer further guidance except for the fact that the oral chemotherapeutic agent that he is on can rarely cause transudative pleural effusions. I have also ordered serum and pleural fluid labs to evaluate the characteristics of his fluid, see below. Clinically, after returning from thoracentesis, patient is breathing much better, and his pain is much better since he is not having a cough with regards to his left flank musculoskeletal pain. With ambulation he does not have any hypoxemia. His postthoracentesis chest x-ray shows no pneumothorax and resolution of the right- sided pleural effusion, and he is comfortable with going home Pleural fluid protein : Serum protein = 0.56 Pleural fluid LDH : Serum LDH = 0.56 Pleural fluid LDH is less than two thirds of the upper limit of normal of the serum LDH White blood count 7388, 88% lymphocytes This is essentially borderline exudative. I discussed these results with Dr. Brooks with pulmonary, and we sent a culture. In addition to cytology he recommends sending flow cytometry, and having the patient follow-up with him as an outpatient after this returns which may be 1-2 weeks. Patient will also follow-up with his oncologist in the office to review cytology. Lab Data Attestation: I reviewed the patient's lab results. Labs: Laboratory Results - last 24 hr 06/04/22 06/04/22 06/04/22 09:35 10:40 10:40 Total Bilirubin 0.50 Direct Bilirubin 0.08 AST 28 ALT 27 Alkaline Phosphatase 76 Lactate Dehydrogenase 242 H Total Protein 7.8 Albumin 3.9 Globulin 3.9 Fluid Source Cancelled Fluid Color Cancelled Fluid Appearance Cancelled Fluid WBC Cancelled Fluid RBC Cancelled Fluid Tot Cell Count Cancelled Fld Polynuclear WBCs # Cancelled Fld Polynuclear WBCs % Cancelled Fluid Mononuclear WBCs Cancelled Fld Mononuclear WBCs % Cancelled Fluid Neutrophils Cancelled Fluid Lymphocytes Cancelled Fluid Monocytes Cancelled Fluid Plasma Cells Cancelled Fluid Macrophages Cancelled Fld Mesothelial Cells Cancelled Fluid Other Cells Cancelled Fl Pathologist Comment Cancelled Fluid Total Protein 4.4 Fluid LDH 136 Fluid Comment 2 Cancelled 06/04/22 10:40 Total Bilirubin Direct Bilirubin AST ALT Alkaline Phosphatase Lactate Dehydrogenase Total Protein Albumin Globulin Fluid Source THORACENTESIS Fluid Color YELLOW Fluid Appearance SL CLDY Fluid WBC 7.217 Fluid RBC 0.003 Fluid Tot Cell Count 7.388 Fld Polynuclear WBCs # 0.042 Fld Polynuclear WBCs % 0.6 Fluid Mononuclear WBCs 7.175 Fld Mononuclear WBCs % 99.4 Fluid Neutrophils 0 Fluid Lymphocytes 88 Fluid Monocytes 1 Fluid Plasma Cells Fluid Macrophages 5 Fld Mesothelial Cells 6 Fluid Other Cells Fl Pathologist Comment May follow Fluid Total Protein Fluid LDH Fluid Comment 2 SEE COMMENT Radiography Diagnostic Testing: Clinical Impression(s) from Imaging Studies Thoracentesis Ultrasound 06/04/22 09:10 IMPRESSION: Ultrasound-guided right thoracentesis. Electronically Signed: Jeovanny Swan MD at 11:08 EST , Chest X-Ray 06/04/22 10:58 IMPRESSION: Status post right thoracentesis. There is no evidence of pneumothorax. Electronically Signed: Jeovanny Swan MD at 11:07 EST , Discharge Plan Triage Chief Complaint: Shortness of Breath ED Provider: Hermes Kent Dx/Rx/DC Orders Clinical Impression: Acute respiratory insufficiency, Bilateral pleural effusion, Chronic myeloid leukemia Instructions: RAD RN Thoracentesis Dc Prescriptions: No Action carvedilol 6.25 mg tablet 6.25 mg PO BID ramipril 2.5 mg capsule 2.5 mg PO DAILY aspirin 81 mg tablet,delayed release (DR/EC) 81 mg PO DAILY cholecalciferol (vitamin D3) 1,000 unit capsule 1,000 unit capsule 1,000 unit PO DAILY atorvastatin 80 mg tablet 80 mg PO QHS ascorbic acid (vitamin C) 1,000 MG tablet 1,000 mg PO DAILY ondansetron HCl 8 MG tablet 8 mg PO Q8H PRN PRN (Reason: Nausea/Emesis) Qty: 30 6RF omega 1-mhf-cli-fish oil 500 MG capsule,delayed release(DR/EC) 1 cap PO DAILY dasatinib 100 MG tablet 100 mg PO DAILY vitamin E 200 UNIT capsule 200 unit PO DAILY Sprycel 100 mg Tablet 100 mg PO DAILY 30 Days Qty: 30 11RF doxycycline hyclate 100 mg tablet 100 mg PO BID Qty: 14 0RF benzonatate [Tessalon Perles] 100 mg capsule 100 mg PO BID PRN (Reason: cough) Qty: 20 0RF hydrocodone-acetaminophen [hydrocodone-acetaminophen] 1 TABLET tablet 1 tab PO Q4H PRN PRN (Reason: Pain) 2 Days Qty: 10 0RF meloxicam 7.5 mg tablet 7.5 mg PO DAILY Qty: 7 0RF Primary Care Provider: Jocelin Saunders Referrals: John Brooks DO [Med Staff - Active Staff] - 1-2 Weeks Jocelin Saunders DO [Primary Care Provider] - Sawyer Delgado MD [Med Staff - Active Staff] - 3-5 Days Disposition Disposition: Home, Self Care What to do if you have Problems For any increased pain, shortness of breath, bleeding, nausea or vomiting, chest pain, or any unexpected problems, contact your Primary Care Provider. Call [facility] ([phone]) or report to the closest Emergency Room. Call 911 if necessary. 06/04/22 1520 <Electronically signed by Hermes Kent MD> Cosigner Signature (if applicable): CC: Dr. John Brooks DO; Dr. Jocelin Saunders DO; Dr. Sawyer Delgado MD Signed Jocelin Saunders DO Work Phone: Start: 06-04-2022 End: 06-04-2022 Thoracentesis W US Procedure Note: See Note; NOTES: [facility] Imaging Services [address] [place] [address] Thoracentesis W US MR#: [id number] Acct: [id number] Name: FREDERIC OVALLES Rep #: [id number] : 1960 M 61 From: Jeovanny medeiros MD PCP: Dr. Jocelin Saunders DO Status: REG ER Study: Thoracentesis W US Date of Exam: 06/04/22 Exam# [id number] Ordering Dr: Hermes Kent MD PROCEDURE: ULTRASOUND GUIDED THORACENTESIS. DATE: 06/04/2022. INDICATION: Male, 61 years old. Right pleural effusion. PHYSICIAN: Jeovanny Swan M.D. PROCEDURE: The risks, benefits, and alternatives to the procedure were explained to the patient. The specific risks of bleeding, infection, and pneumothorax requiring chest tube insertion were discussed and accepted. Written informed consent was obtained. Ultrasonographic evaluation of the right lower pleural space was carried out. An adequate pocket was identified. The patient was placed in the sitting, upright position. The overlying skin was prepped and draped in sterile fashion. 1% lidocaine was administered subcutaneously for local anesthesia. Under ultrasound guidance, a 5 Malay thoracentesis needle/catheter system was advanced into the right posterior lower pleural fluid collection. Approximately 1900 mL of rajan-colored fluid was drained. The catheter was removed, and a sterile dressing was applied. A specimen was collected and sent to the laboratory for analysis, as requested by the referring clinician. The patient tolerated the procedure well. A chest x-ray was ordered. US/Thoracentesis W US IMPRESSION: Ultrasound-guided right thoracentesis. Electronically Signed: Jeovanny Swan MD at 11:08 EST , CC: Dr. Hermes Kent MD; Dr. Jocelin Saunders DO Wool Supplier: Signed Jocelin Saunders DO Work Phone: Start: 06-04-2022 Ultrason[address] guidance for thoracentesis Dr. Jocelin Saunders Work Phone: Start: 06-03-2022 End: 06-05-2022 Procedure Note: See Note; NOTES: [facility] Cardiovascular Services [address] [place] [address] 12 Lead EKG 06/03/22 0847 MR#: [id number] Acct: [id number] Name: FREDERIC OVALLES Rep #: [id number] : 1960 61 From: Hector Hsu MD Attending Dr: Status: DEP ER Ordering Dr: Hermes Kent MD Date: 06/03/22 Location: ED Sex: M C Admitted: Test Reason : GENERAL ILLNESS Blood Pressure : / mmHG Vent. Rate : 083 BPM Atrial Rate : 083 BPM P-R Int : 134 ms QRS Dur : 082 ms QT Int : 352 ms P-R-T Axes : -15 036 017 degrees QTc Int : 413 ms Normal sinus rhythm Low voltage QRS Borderline ECG Confirmed by HECTOR HSU MD ([id number]), commercial production editor RULA VAZQUEZ ([id number]) on 06/05/2022 11:17:22 AM Referred By: Confirmed By:HECTOR HSU MD 06/05/22 1117 Date Hector Hsu MD CC: Dr. Hermes Kent MD; Dr. Jocelin Saunders DO Signed Jocelin Saunders DO Work Phone: Start: 06-03-2022 End: 06-03-2022 Emergency Department Summary Procedure Note: See Note; NOTES: [facility] Medical Records Department [address] [place] [address] Emergency Department Summary 06/03/22 MR#: [id number] Acct: [id number] Name: FREDERIC OVALLES Rep #: [id number] : 1960 61 From: Hermes Kent MD PCP: Dr. Jocelin Saunders DO Status:DEP ER Location: ED HPI History of Present Illness Chief Complaint: General Illness Informant: patient Narrative Narrative: Patient states he has a chronic cough but it has been worse for the past 5 days, occasionally productive. He feels like he has occasionally had some subjective fevers but he has not checked his temperature. 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 Follows with local oncology. He has felt short of breath he thinks since before the cough became worse, but now his breathing is worse and about 4 days ago he woke up with left flank pain that is worse with movement and worse with coughing, it has progressively become worse and is not colicky. No urinary symptoms. He states now his pain is severe which is the main thing that prompted his ED visit today, but he is also very dyspneic. He has a history of an MO remotely, he takes aspirin no other blood thinning medications, and he does not have a history of chronic lung disease although he continues to smoke. 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) Pneumonia Tobacco use disorder, continuous Unspecified injury of right foot, sequela Home Medications aspirin 81 mg tablet,delayed release 81 mg PO DAILY 09/02/18 [History Last Taken 04/12/20] carvedilol 6.25 mg tablet 6.25 mg PO BID 09/02/18 [History Last Taken 04/12/20] cholecalciferol (vitamin D3) 25 mcg (1,000 unit) capsule 1,000 unit PO DAILY 09/02/18 [History Last Taken 04/12/20] ramipril 2.5 mg capsule 2.5 mg PO DAILY 09/02/18 [History Last Taken 04/12/20] atorvastatin 80 mg tablet 80 mg PO QHS 12/15/19 [History Last Taken 04/12/20] ascorbic acid (vitamin C) 1,000 mg tablet 1,000 mg PO DAILY 04/05/20 [History Last Taken 04/12/20] ondansetron HCl 8 mg tablet 8 mg PO Q8H PRN PRN Nausea/Emesis #30 tabs 05/05/20 [Rx Last Taken Unknown] omega 3-dha 60 mg-epa 90 mg-fish oil 500 mg capsule, delayed release 1 cap PO DAILY 05/12/20 [History Last Taken Unknown] dasatinib 100 mg tablet 100 mg PO DAILY 07/13/20 [History Last Taken Unknown] vitamin E 200 unit capsule 200 unit PO DAILY 08/25/20 [History Last Taken Unknown] benzonatate 100 mg capsule (Tessalpatricia Lipscomb) 100 mg PO BID PRN cough #20 caps 03/18/21 [Rx Last Taken Unknown] doxycycline hyclate 100 mg tablet 100 mg PO BID #14 tabs 03/18/21 [Rx Last Taken Unknown] dasatinib 100 mg tablet (Sprycel) 100 mg PO DAILY 30 days #30 tabs 03/07/22 [Rx Last Taken Unknown] hydrocodone-acetaminophen 5-325mg 5mg-325mg 1 tab PO Q4H PRN PRN Pain 2 days #10 TABLETS 06/03/22 [Rx Last Taken Unknown] meloxicam 7.5 mg tablet 7.5 mg PO DAILY #7 tabs 06/03/22 [Rx Last Taken Unknown] Allergy/AdvReac Type Severity Reaction Status Date / Time No Known Allergies Allergy Verified 06/03/22 07:50 Family History Father Colon cancer Diabetes Heart disease Hypertension CAD (coronary artery disease) Sister Breast cancer Mother CAD (coronary artery disease) Hypertension Heart disease Surgical History History of bilateral inguinal hernia repair (08/2018) History of bone marrow biopsy (04/13/20) History of coronary artery stent placement (01/20/17) Status post laparoscopic Migue fundoplication (10/15/18) Social History household members: spouse Smoking Status: Current every day smoker tobacco type: cigarettes Tobacco: How many years used: 40 Electronic Cigarette Use: not used second hand exposure: No quit status: considering quitting counseling given: provider counseling alcohol intake: current alcohol intake frequency: a few times a week Alcohol type: beer substance use type: does not use well-balanced diet: about half the time uyen/latter-day: Latter Day seatbelt use: always do you feel safe at home: Yes ROS ROS ED Constitutional Constitutional ED: Reports fever(s) and subjective; Denies chills Eyes Eyes: Denies change in vision or diplopia ENT ENT ED: Denies rhinorrhea or sore throat Cardiovascular Cardiovascular: Denies chest pain, orthopnea or palpitations Respiratory/Chest Respiratory/Chest: Reports cough, dyspnea and sputum; Denies orthopnea Gastrointestinal Gastrointestinal: Reports other Details: Left lateral side pain radiates into left mid abdomen but no other abdominal symptoms ; Denies diarrhea, nausea or vomiting Genitourinary Genitourinary ED: Reports flank pain; Denies dysuria or hematuria Musculoskeletal Musculoskeletal: Reports other Details: Left flank pain radiates toward the left low back but no other back pain ; Denies neck pain Integumentary Denies abscess or rash Neurologic Neurologic: Denies headache(s), paresthesias or weakness Psychiatric Psychiatric: Denies anxiety or suicidal thoughts EXAM Physical Exam Const Vital Signs: 06/03/22 07:50 06/03/22 08:01 06/03/22 07:50 Temperature 98.7 F 98.7 F Temperature Source Temporal Temporal Pulse Rate 81 81 Respiratory Rate 22 H 22 H Respiratory Effort Short of Breath Respiratory Pattern Tachypnea Blood Pressure 139/86 H 139/86 H Blood Pressure Mean 103 103 Pulse Ox 95 95 Oxygen Delivery Method Room Air Room Air 06/03/22 08:50 06/03/22 09:09 06/03/22 10:00 Temperature 98.1 F 97.7 F L Temperature Source Oral Oral Pulse Rate 76 74 Respiratory Rate 24 H 24 H 20 H Respiratory Effort Respiratory Pattern Hyperpnea Blood Pressure 141/86 H 140/81 H Blood Pressure Mean 104 100 Pulse Ox 93 94 Oxygen Delivery Method Room Air Room Air Positive well nourished, well developed and obese General Appearance ED: well developed and NAD Nutritional Appearance: obese HEENT Reports moist mucous membranes normocephalic and atraumatic Eyes PERRL and EOMs intact bilaterally Neck full ROM, supple and no JVD Chest Wall inspection of chest normal and palpation of chest normal Resp Resp Narrative: Tachypneic no distress. Mild wheezes with more prominent bronchial breath sounds left base, clear/decreased throughout the right base. Cardio regular rate, regular rhythm and no murmurs GI non-distended GI Narrative: Tender in the left lateral flank, over lower ribs, superficially, reproduces his pain significantly; no abdominal tenderness otherwise. No pulsatile mass but exam limited by obesity. No rash or lesion in the area of pain. Auscultation: normoactive bowel sounds Palpation: soft Back/Spine no CVA tenderness General Back: other FROM Extremity normal to inspection General Extremety ED: Negative for edema, pulses abnormal or tenderness General Extremity: Negative for edema or pulses abnormal Neuro oriented x3, CN's II-XII intact bilaterally and no sensory deficits noted Sensorium / Orientation: awake and alert Motor Exam: strength 5/5 throughout Psych Mood Affect: anxious Skin no rashes or lesions noted and no wounds MDM MDM MDM Narrative Medical decision making narrative: Given patient's history although he does have some reproducible pain on the left side, it is out of proportion to his exam to some degree, so I obtained a CT, and since he needed a chest x-ray for his cough and was having dyspnea prior to the cough with his history of leukemia, I skipped the x-ray and obtain CT angiography of the chest at the same time as the CT to more fully evaluate his thorax. It shows a large right pleural effusion explaining his more prominent breath sounds in the left base, in addition to a small pleural effusion on the left with no obvious etiology/mass, no consolidation/pneumonia, or other acute abnormality. CT of the abdomen/pelvis basically shows no acute reason for his pain in the left flank which on exam seems extremely musculoskeletal, and his pain is much better after Toradol and morphine. He was reassured, as his breathing is better after his pain is better controlled. I discussed with Ms. turcios on for the hematology/oncology group the patient is established with, since the patient is not hypoxemic and his pain is controlled and he has no medical reason to require admission, they would prefer to have him set up for an outpatient thoracentesis for diagnostic purposes, and I suspect this will really help with the patient's breathing as well. Since he is bringing up some clear phlegm, I suspect he has a viral infection on top of his pleural effusions, which I do not think are hyperacute. The rest of his work-up is negative including white blood count, BNP, troponin, EKG, and urinalysis. Discussed all this with the patient I will prescribe him something for pain but I encouraged him to also use topicals for his musculoskeletal pain in the left flank which is over his lower ribs and probably due to coughing. Answered all of his questions at the bedside he is comfortable with this overall plan, oncology will contact him tomorrow to set up thoracentesis, as it is not available by radiology today as it is Saturday. Lab Data Attestation: I reviewed the patient's lab results. Labs: Laboratory Results - last 24 hr 06/03/22 06/03/22 06/03/22 08:51 08:51 08:51 WBC 7.3 RBC 5.06 Hgb 15.5 Hct 46.7 MCV 92.3 MCH 30.6 MCHC 33.2 RDW Std Deviation 45.1 H RDW Coeff of Zayra 13.3 Plt Count 251 MPV 9.6 Immature Gran % (Auto) 0.300 Neut % (Auto) 70.8 H Lymph % (Auto) 13.6 L Arroyo % (Auto) 10.1 H Eos % (Auto) 4.5 Baso % (Auto) 0.7 Absolute Neuts (auto) 5.2 Absolute Lymphs (auto) 1.00 Nucleated RBC % 0 Sodium 139 Potassium 4.3 Chloride 105 Carbon Dioxide 27.0 Anion Gap 7 BUN 9 Creatinine 0.70 Estim Creat Clear Calc 121.63 Est GFR (MDRD) Af Amer 148 Est GFR (MDRD) Non-Af 122 BUN/Creatinine Ratio 12.9 Glucose 110 H Lactic Acid Calcium 9.2 Troponin I High Sens < 3 L B-Natriuretic Peptide 38.5 Urine Color Urine Clarity Urine pH Ur Specific [place] Urine Protein Urine Glucose (UA) Urine Ketones Urine Occult Blood Urine Nitrite Urine Bilirubin Urine Urobilinogen Ur Leukocyte Esterase Urine RBC Urine WBC Ur Squamous Epith Cells Urine Bacteria Urine Mucus 06/03/22 06/03/22 08:51 09:14 WBC RBC Hgb Hct MCV MCH MCHC RDW Std Deviation RDW Coeff of Zayra Plt Count MPV Immature Gran % (Auto) Neut % (Auto) Lymph % (Auto) Arroyo % (Auto) Eos % (Auto) Baso % (Auto) Absolute Neuts (auto) Absolute Lymphs (auto) Nucleated RBC % Sodium Potassium Chloride Carbon Dioxide Anion Gap BUN Creatinine Estim Creat Clear Calc Est GFR (MDRD) Af Amer Est GFR (MDRD) Non-Af BUN/Creatinine Ratio Glucose Lactic Acid 1.3 Calcium Troponin I High Sens B-Natriuretic Peptide Urine Color Yellow Urine Clarity Clear Urine pH 7.0 Ur Specific [place] 1.010 Urine Protein 15 H Urine Glucose (UA) Normal Urine Ketones Negative Urine Occult Blood Negative Urine Nitrite Negative Urine Bilirubin Negative Urine Urobilinogen Normal Ur Leukocyte Esterase Negative Urine RBC 0 SEEN Urine WBC 0 SEEN Ur Squamous Epith Cells 0 SEEN Urine Bacteria 0 SEEN Urine Mucus 0 SEEN Radiography Diagnostic Testing: Clinical Impression(s) from Imaging Studies Chest CTA 06/03/22 08:05 IMPRESSION: 1. Moderate right side and small left-sided pleural effusions are present. Moderate right lower lobe atelectasis is also present. No visualized consolidation or lung nodules. 2. No demonstrated pulmonary embolism or arterial dissection. Electronically Signed: Ezra Darnell MD at 10:43 EST Reading Location ID and State: [facility] / [place] , Service support , Abdomen/Pelvis CT 06/03/22 08:08 IMPRESSION: 1. Curved and redundant mucosal configuration. The fundus of the stomach is compatible with known MIGUE fundoplication. The stomach is otherwise unremarkable. 2. Mild gaseous and fluid distention of the proximal to mid jejunum could represent mild focal ileus or enteritis. There is no transition zone or other signs of bowel obstruction on the current study. 3. No free air or free fluid is present. 4. Moderate stool retention is seen in the rectosigmoid colon. Electronically Signed: Ezra Darnell MD at 10:36 EST Reading Location ID and State: [facility] / [place] , Service support , Rhythm Strip Rhythm Strip: Sinus Rhythm Rate: 80 Ectopy: None EKG Initial EKG: Attestation: I personally reviewed and interpreted this EKG as follows: Interpretation: Sinus Rhythm and No Acute Injury Pattern Comments: unremarkable EKG Discharge Plan Triage Chief Complaint: General Illness ED Provider: Hermes Kent Dx/Rx/DC Orders Clinical Impression: Bilateral pleural effusion, Chronic myeloid leukemia, Viral URI with cough, Pain in abdominal muscle of left flank Instructions: ED Pleural Effusion Prescriptions: New hydrocodone-acetaminophen [hydrocodone-acetaminophen] 1 TABLET tablet 1 tab PO Q4H PRN PRN (Reason: Pain) 2 Days Qty: 10 0RF meloxicam 7.5 mg tablet 7.5 mg PO DAILY Qty: 7 0RF No Action carvedilol 6.25 mg tablet 6.25 mg PO BID ramipril 2.5 mg capsule 2.5 mg PO DAILY aspirin 81 mg tablet,delayed release (DR/EC) 81 mg PO DAILY cholecalciferol (vitamin D3) 1,000 unit capsule 1,000 unit capsule 1,000 unit PO DAILY atorvastatin 80 mg tablet 80 mg PO QHS ascorbic acid (vitamin C) 1,000 MG tablet 1,000 mg PO DAILY ondansetron HCl 8 MG tablet 8 mg PO Q8H PRN PRN (Reason: Nausea/Emesis) Qty: 30 6RF omega 3-nuz-nef-fish oil 500 MG capsule,delayed release(DR/EC) 1 cap PO DAILY dasatinib 100 MG tablet 100 mg PO DAILY vitamin E 200 UNIT capsule 200 unit PO DAILY Sprycel 100 mg Tablet 100 mg PO DAILY 30 Days Qty: 30 11RF doxycycline hyclate 100 mg tablet 100 mg PO BID Qty: 14 0RF benzonatate [Tessalon Perles] 100 mg capsule 100 mg PO BID PRN (Reason: cough) Qty: 20 0RF Primary Care Provider: Jocelin Saunders Referrals: Jocelin Saunders DO [Primary Care Provider] - Sawyer Delgado MD [Med Staff - Active Staff] - As soon as possible (Office should call you tomorrow to help set up outpatient thoracentesis) Activity Restrictions/Additional Instructions: May also consider using topical pain reliever such as Biofreeze, Bengay, Sportscreme, IcyHot, etc. to your left flank/side. Disposition Disposition: Home, Self Care What to do if you have Problems For any increased pain, shortness of breath, bleeding, nausea or vomiting, chest pain, or any unexpected problems, contact your Primary Care Provider. Call [facility] ([phone]) or report to the closest Emergency Room. Call 911 if necessary. 06/03/22 1600 <Electronically signed by Hermes Kent MD> Cosigner Signature (if applicable): CC: Dr. Jocelin Saunders DO Signed Joceiln Saunders DO Work Phone: Start: 06-03-2022 End: 06-03-2022 Abdomen/Pelvis W IV Cont ONLY Procedure Note: See Note ; NOTES: [facility] Imaging Services [address] [place] [id number] Abdomen/Pelvis W IV Cont ONLY MR#: [id number] Acct: [id number] Name: FREDERIC OVALLES Rep #: [id number] : 1960 M 61 From: Ezra jiang MD PCP: Dr. Jocelin Saunders DO Status: REG ER Study: Abdomen/Pelvis W IV Cont ONLY Date of Exam: Exam# [id number] Ordering Dr: Hermes Kent MD STUDY: CT ABDOMEN AND PELVIS WITH CONTRAST REASON FOR EXAM: Male, 61 years old. llq pain SOB, CML/LUNG CA ON ORAL CHEMO, HTN, MO WITH STENTS, LLQ STABBING PAINS, BILAT INGUINAL HERNIA REPAIRS, MIGUE FUNDOPLICATION RADIATION DOSAGE (If Supplied By Facility): CTDIvol = ( 20.30 ) mGy, DLP = ( 2052.16 ) mGycm TECHNIQUE: Transaxial images were obtained from the dome of the diaphragm to the symphysis pubis without oral contrast. IV 100mL Isovue-370 was administered. Sagittal and coronal images were reconstructed. Individualized dose optimization techniques were used for this CT. COMPARISON: CTA of the chest dated June 03, 2022 FINDINGS: A moderate size right pleural effusion is present. Small left pleural effusion noted. Moderate size anterior pericardial effusion is also present. A small simple cyst is present in the posterior aspect of the right lobe of the liver of no clinical significance. The liver is otherwise normal. Normal gallbladder and extrahepatic biliary system. Normal spleen. Normal pancreas. Normal bilateral adrenal glands. Normal right kidney. Normal left kidney. There is a small hiatal hernia. Curved and redundant mucosal configuration. The fundus of the stomach is compatible with known MIGUE fundoplication. The stomach is otherwise unremarkable. Mild gaseous and fluid distention of the proximal to mid jejunum could represent mild focal ileus or enteritis. There is no transition zone or other signs of bowel obstruction on the current study. No free air or free fluid is present. Moderate stool retention is seen in the rectosigmoid colon. No diverticula are seen. Normal colon. The appendix is visualized and appears normal. There is diffuse atherosclerotic calcification of the abdominal aorta, without a demonstrated aneurysm. Normal inferior vena cava. Normal retroperitoneum. Normal urinary bladder. There are prostatic calcifications. Normal abdominal wall. No inguinal hernias are present on the current study. There are diffuse degenerative changes of the visualized lumbar spine. CT/Abdomen/Pelvis W IV Cont ONLY IMPRESSION: 1. Curved and redundant mucosal configuration. The fundus of the stomach is compatible with known MIGUE fundoplication. The stomach is otherwise unremarkable. 2. Mild gaseous and fluid distention of the proximal to mid jejunum could represent mild focal ileus or enteritis. There is no transition zone or other signs of bowel obstruction on the current study. 3. No free air or free fluid is present. 4. Moderate stool retention is seen in the rectosigmoid colon. Electronically Signed: Ezra Darnell MD at 10:36 EST Reading Location ID and State: [facility] / [place] , Service support , CC: Dr. Hermes Kent MD; Dr. Jocelin Saunders DO Wool Supplier: Lauri Saunders DO Work Phone: Start: 06-03-2022 Computed tomography of abdomen and pelvis with intravenous contrast Dr. Jocelin Saunders Work Phone: Start: 06-03-2022 CT angiography of chest with contrast Dr. Jocelin Saunders Work Phone: Start: 06-03-2022 End: 06-03-2022 CTA Chest W/WO Contrast Procedure Note: See Note; NOTES: [facility] Services [address] [place] [address] CTA Chest W/WO Contrast MR#: [id number] Acct: [id number] Name: FREDERIC OVALLES Rep #: [id number] : 1960 M 61 From: Ezra jiang MD PCP: Dr. Jocelin Saunders DO Status: REG ER Study: CTA Chest W/WO Contrast Date of Exam: 06/03/22 Exam# [id number] Ordering Dr: Hermes Kent MD STUDY: CTA CHEST REASON FOR EXAM: Male, 61 years old. 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 Post-processing of the angiographic images was performed, with multiplanar reformation and 3D reconstruction. Individualized dose optimization techniques were used for this CT. COMPARISON: CT of the chest dated May 17, 2020. CT lung screening exams dated May 30, 2021 FINDINGS: Moderate right side and small left-sided pleural effusions are present. Moderate right lower lobe atelectasis is also present. No visualized consolidation or lung nodules. Normal enhancement of the main pulmonary artery and right and left pulmonary arteries. Normal enhancement of the bilateral peripheral pulmonary arteries. There is no demonstrated pulmonary embolism. There is atherosclerotic calcification of the aortic arch with tortuosity. There is no demonstrated aortic dissection. Normal heart size. A moderate size anterior pericardial effusion is present. There are no demonstrate calcifications of the coronary arteries. Normal mediastinum. Normal hilar regions. Normal visualized trachea and bronchi. The lungs are well expanded. Normal chest wall structures. There are degenerative changes of thoracic spine. No visualized lytic or blastic lesions of the bony structures. Normal visualized upper abdomen. CT/CTA Chest W/WO Contrast IMPRESSION: 1. Moderate right side and small left-sided pleural effusions are present. Moderate right lower lobe atelectasis is also present. No visualized consolidation or lung nodules. 2. No demonstrated pulmonary embolism or arterial dissection. Electronically Signed: Ezra Darnell MD at 10:43 EST Reading Location ID and State: [facility] / [place] , Service support , CC: Dr. Hermes Kent MD; Dr. Jocelin Saunders DO Wool Supplier: Signed Jocelin Saunders DO Work Phone: Start: 04-04-2022 End: 04-04-2022 Oncology Visit Report Procedure Note: See Note; NOTES: [facility] [address] [facility] [place] [address] OFFICE VISIT Date of Service: 04/04/22 1039 MR#: [id number] Acct: [id number] Name: FREDERIC OVALLES Rep #: [id number] : 1960 From: Sawyer Delgado MD Age/Sex: 61/M Location: [facility] [place] Status: Signed HPI Subjective Date of Service 04/04/22 Chief Complaint Chronic myeloid leukemia on treatment History of Present Illness 60-year-old gentleman with no known chronic inflammatory or infectious diseases referred in consultation because of a persistent leukocytosis. March 2020 peripheral blood BCR ABL by FISH was positive consistent with chronic myeloid leukemia. Bone marrow aspirate and biopsy April 13, 2020: BONE MARROW DIAGNOSIS Bone marrow biopsy, clot and aspiration (specimens A-C): Hypercellular bone marrow. No stainable iron identified. No evidence of lymphoproliferative disorder. See comment. COMMENT Flow cytometry analysis reveals no increased blasts population. However, myeloid elements exhibit aberrant expression of CD56 and show left shift with down-regulation of CD10 and CD16. The findings are compatible with an underlying primary myeloid neoplasm. The flow cytometry analysis report from [facility] is reviewable in the patient???s EMR. BONE MARROW STUDY Slides are reviewed. CBC DATE: 04/13/20 WBC 22.5; RBC 5.33; HGB 15.8; HCT 48.5; MCV 91.0; RDW 48.2; PLTS 206,000 SEGS 54%; LYMPHS 23%; MONOS 11%; EOS 2%; BASOS 0% PERIPHERAL SMEAR: Submitted. RBC: Normochromic, normomorphic WBC: Neutrophilic leukocytosis with slight left shift. PLTS: Normomorphic BONE MARROW ASPIRATE DIFFERENTIAL: 200 cell count. Blasts % (normal 0-2): 2 Promyelocytes % (normal 1-5): 5 Myelocytes and metamyelocytes % (normal 17-41): 38 Bands and Segs % (normal 15-32): 26 Eos % (normal 1-6): 2 Basos % (normal 0-1): 0 Monocytes % (normal 0-4): 2 Erythroid Precursors % (normal 17-35): 18 Lymphocytes % (normal 7-13): 7 Plasma Cells % (normal 0-2): 0 ASPIRATE FINDINGS: Site: Not specified Paucispicular Cellular M/E ratio: Within normal limits (Normal 1.5 - 4.0) Megakaryocytes: Adequate Erythropoiesis: Progressive Granulopoiesis: Normoblastic CORE BIOPSY FINDINGS: Site: Not specified Adequacy: No bone present Cellularity %: Not applicable M/E ratio: Not applicable Blood Only rare marrow cell noted. ASPIRATE CLOT FINDINGS: Site: Not specified Marrow Particles: Many Cellularity %: 80% M/E ratio: Within normal limits Megakaryocytes: Adequate Granuloma(s): 0 Lymphoid aggregate(s): 0 Atypical infiltrate(s): 0 SPECIAL STAINS (with matched controls): Iron: Stainable iron not present Reticulin: Within normal limits PAS: Highlights myeloid elements and megakaryocytes. ADDENDUM FISH BCR/ABL1 REPORT FROM [facility] INTERPRETATION: BCR/ABL gene rearrangement is detected. RESULTS: BCR/ABL1 Normal Nuclei Positive Nuclei with Dual Fusion 3.33% 96.67% CYTOGENETICS REPORT FROM [facility] INTERPRETATION: Abnormal male karyotype was observed in twenty metaphases analyzed. 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] Treatment: Dasatinib 100 mg daily April 28, 2020- [facility] Medical History Atherosclerosis of coronary artery of [place] heart without angina pectoris Encounter for screening for malignant neoplasm of lung in current smoker with 30 pack year history or greater Essential (primary) hypertension Fatigue Fracture of great toe, right, open Hiatal hernia with GERD History of back problems History of ST elevation myocardial infarction (STEMI) (01/20/17) Hyperlipidemia Leukocytosis Near syncope Nicotine dependence Obesity (BMI 30.0-34.9) 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) Pneumonia Tobacco use disorder, continuous Unspecified injury of right foot, sequela Surgical History History of bilateral inguinal hernia repair (08/2018) History of bone marrow biopsy (04/13/20) History of coronary artery stent placement (01/20/17) Status post laparoscopic Migue fundoplication (10/15/18) Family History Father Colon cancer Diabetes Heart disease Hypertension CAD (coronary artery disease) Sister Breast cancer Mother CAD (coronary artery disease) Hypertension Heart disease Social History household members: spouse Smoking Status: Current every day smoker tobacco type: cigarettes Tobacco: How many years used: 40 Electronic Cigarette Use: not used second hand exposure: No quit status: considering quitting counseling given: provider counseling alcohol intake: current alcohol intake frequency: a few times a week Alcohol type: beer substance use type: does not use well-balanced diet: about half the time uyen/latter-day: Latter Day seatbelt use: always do you feel safe at home: Yes ROS Constitutional Constitutional: Reports systems reviewed and no addt'l complaints, except as documented; Denies fatigue, fever(s) or weight loss Eyes Eyes: Reports systems reviewed and no addt'l complaints, except as documented ENT HEENT: Reports systems reviewed and no addt'l complaints, except as documented; Denies headache(s), mouth lesions or mucositis Cardiovascular Cardiovascular: Reports systems reviewed and no addt'l complaints, except as documented; Denies chest pain with activity or edema Respiratory/Chest Respiratory/Chest: Reports systems reviewed and no addt'l complaints, except as documented; Denies cough or dyspnea on exertion Gastrointestinal Gastrointestinal: Reports systems reviewed and no addt'l complaints, except as documented; Denies change in bowel habits, diarrhea or nausea Genitourinary Genitourinary: Reports systems reviewed and no addt'l complaints, except as documented; Denies dysuria Musculoskeletal Musculoskeletal: Reports systems reviewed and no addt'l complaints, except as documented, back pain and other Details: Chronic back pain unchanged Integumentary Integumentary: Reports systems reviewed and no addt'l complaints, except as documented, dry skin, rash and other Details: None itchy rash on upper arms Neurologic Neurologic: Reports systems reviewed and no addt'l complaints, except as documented, dizziness and other; Denies headache(s) or weakness Psychiatric Psychiatric: Reports systems reviewed and no addt'l complaints, except as documented Endocrine Endocrinology: Reports systems reviewed and no addt'l complaints, except as documented Hematologic/Lymphatic Hematologic/Lymphatic: Reports systems reviewed and no addt'l complaints, except as documented; Denies easy bleeding or easy bruising Allergic/Immunologic Allergic/Immunologic: Reports systems reviewed and no addt'l complaints, except as documented Intake Vital Signs 12/27/21 10:23 02/09/22 08:20 04/04/22 10:40 Height 6 ft 6 ft 6 ft Weight: 109.316 kg BMI 32.6 BP 148/91 H Respiration 16 Pulse 66 Pulse Oximetry (%) 96 Intake Accompanied by: Self Is patient in pain?: Yes (chronic back pain) Allergies No Known Allergies Allergy (Verified 04/04/22 10:40) Medications aspirin 81 mg tablet,delayed release 81 mg PO DAILY 09/02/18 [History Confirmed 04/04/22] carvedilol 6.25 mg tablet 6.25 mg PO BID 09/02/18 [History Confirmed 04/04/22] cholecalciferol (vitamin D3) 25 mcg (1,000 unit) capsule 1,000 unit PO DAILY 09/02/18 [History Confirmed 04/04/22] ramipril 2.5 mg capsule 2.5 mg PO DAILY 09/02/18 [History Confirmed 04/04/22] atorvastatin 80 mg tablet 80 mg PO QHS 12/15/19 [History Confirmed 04/04/22] ascorbic acid (vitamin C) 1,000 mg tablet 1,000 mg PO DAILY 04/05/20 [History Confirmed 04/04/22] ondansetron HCl 8 mg tablet 8 mg PO Q8H PRN PRN Nausea/Emesis #30 tabs 05/05/20 [Rx Confirmed 04/04/22] omega 3-dha 60 mg-epa 90 mg-fish oil 500 mg capsule, delayed release 1 cap PO DAILY 05/12/20 [History Confirmed 04/04/22] dasatinib 100 mg tablet 100 mg PO DAILY 07/13/20 [History Confirmed 04/04/22] vitamin E 200 unit capsule 200 unit PO DAILY 08/25/20 [History Confirmed 04/04/22] benzonatate 100 mg capsule (Tessalon Perles) 100 mg PO BID PRN cough #20 caps 03/18/21 [Rx Confirmed 04/04/22] doxycycline hyclate 100 mg tablet 100 mg PO BID #14 tabs 03/18/21 [Rx Confirmed 04/04/22] dasatinib 100 mg tablet (Sprycel) 100 mg PO DAILY 30 days #30 tabs 03/07/22 [Rx Confirmed 04/04/22] Central Venous Access Central Venous Access: No Exam Physical Exam Const alert and oriented x3 Constitutional Narrative: ECOG 0-1 General Appearance: cooperative Nutritional Appearance: overweight HEENT normocephalic Head and Scalp: normal to inspection Mouth: oral and palatal mucosa normal Eyes conjunctivae normal and no scleral icterus General Eye: normal appearance of both eyes Neck no lymphadenopathy and no JVD Lymph Lymphatic: no lymphadenopathy noted Chest Chest: symmetrical chest wall rise Resp normal respiratory effort and clear to auscultation bilaterally Cardio regular rate, regular rhythm, S1 normal heart sound, S2 normal heart sound and no murmurs Jugular Venous Distention: Negative for JVD GI soft to palpation, non-tender and non-distended; Negative for hepatosplenomegaly no CVA tenderness Back/Spine no thoracic nor lumbar tenderness Extremity no clubbing, cyanosis or edema Skin no rashes or lesions noted Neuro oriented x3, CN's II-XII intact bilaterally, moves all extremities and no focal motor deficits Coordination / Balance: [id number] test normal Speech: speech normal Gait (Neuro): normal gait Psych mental status grossly normal Coding Level of Care Code Off vis,est,level 4 Exam Problem Focused Diagnoses Chronic myeloid leukemia C92.10 Assessment and Plan Assessment and Plan (1) Chronic myeloid leukemia: Status: Chronic Plan 61-year-old male who presented with with a mature neutrophilic leukocytosis first noted January 2020, progressively worsening. He has no known chronic inflammatory or infectious diseases. BCR ABL profile with FISH is positive consistent with chronic myeloid leukemia. Bone marrow aspirate and biopsy March 2020 confirmed the diagnosis with a q BCR ABL positivity of 96.67% Started TKI therapy with dasatinib April 28, 2020, a decline in WBC/ANC is consistent with a hematologic response within the first month of treatment. Treatment is tolerated with no grade 3 or 4 toxicities. Mild elevation of liver enzymes less than 2 fold resolved and an increasing leukopenia with preserved neutrophil count noted at 4 weeks of treatment also resolved with continued standard dosing. He showed a major molecular response (MMR) to treatment , however October 2021 he showed an upward trend in q. BCR ABL but then declined to </= 0.1 (optimal) Date qBCR-ABL (e13a2/b2a2) 03/30/2020 159.1086 08/10/2020 0.3342 11/10/2020 0.017 02/08/2021 0.031 05/09/2021 0.0626 08/09/2021 0.0559 11/08/2021 0.2603 12/12/2021 NEG 03/22/2022 0.056 Comorbid conditions: smoker with over 30 pack years cigarettes (started at age 18 averaging 1/2 to 1 pack of cigarettes daily), hypertension, coronary artery disease, cerebrovascular disease and dyslipidemia. Plan: #1-Continue dasatinib standard dose and follow-up in3 months with a repeat q. BCR ABL. Patient reports he takes his pills faithfully and did not miss a single dose. His pretreatment left ventricular ejection fraction normal at 55% March 2020. His EKG showed normal sinus rhythm with a normal QT/QTc 392/44 ms Hepatitis serologies showed no active chronic hepatitis #2-for occasional nausea continue to use ondansetron as needed. #3-Lung cancer screening : He is up-to-date, next CT of the chest to schedule for May 2022 . Patient was seen , impression and plan discussed. Sawyer Delgado MD Transit Driver, [facility] Divisions of Medical Oncology Hematology Department of Internal Medicine [facility] [place] [phone] This note was generated using a voice recognition system software. Although it was reviewed by the author prior to finalization, it may still contain incorrect words, spelling, and punctuation that were not noted when reviewing prior to saving. If a clinically significant typo or inaccurately typed phrase is noted, please notify the author. 04/04/22 1053 <Electronically signed by Sawyer Delgado MD> Date Sawyer Delgado MD Cosigner Signature: Date (if applicable) CC: Dr. Jocelin Saunders, DO Jocelin Saunders DO Work Phone: Start: 02-09-2022 End: 02-09-2022 Cardiology Visit Report Comments: See Note; NOTES: [facility] [address] [place] [address] [address] [place] [address] OFFICE VISIT Date of Service: 02/09/22 MR#: [id number] Acct: [id number] Name: MARISAPATRICIAFREDERIC Rep #: [id number] : 1960 Provider: Dr. Hector Hsu MD Age/Sex: 61/M Location: [facility] Status: Signed HPI [facility] History of Present Illness Details: This is a 61-year-old gentleman that presents here today for a follow-up cardio oncology visit. He has a history of coronary artery disease with myocardial infarction in 2016 with 2 stents placed at that time.??? He had suffered a V. fib arrest. He had 2 stents placed, one was in the proximal left anterior descending artery and the other was in the mid right coronary artery.??? He also has a history of hypertension, hyperlipidemia.??? He has been diagnosed with chronic myeloid leukemia and has been on dasatinib which was started in April which she has tolerated well.??? His echocardiographic findings prior to this demonstrated an ejection fraction of 55% with a global longitudinal strain of 18.1. From a cardiac standpoint, patient is doing well.??? He does not have any chest discomfort/heaviness/tightness .??? His exercise tolerance is stable for his age.??? He does not have any worsening symptoms of shortness of breath. He does get SOB with exertional activity but it would be what he would expect. He denies any PND.??? He does not have any orthopnea.??? He does not have any symptoms of congestive heart failure.??? He does not have any palpitations that he is aware of.??? He does not have any lightheadedness or dizziness.??? He has had 2 episodes where he had near syncope. He had a Holter monitor placed which demonstrated an average heart rate of 70 bpm minimum of 65 and max 108 bpm. Carotid ultrasound also did not demonstrate any significant abnormalities. He did undergo a stress test in August 2018 where he exercised to a high metabolic workload.??? He did undergo some blood flow screening which demonstrated significant plaque in the right carotid artery. He does not have any lower extremity edema.??? He does not have any symptoms of claudication.??? His physical exam demonstrated clear lung osuna regular rate and rhythm and no pedal edema Intake Vital Signs 02/09/22 08:19 02/09/22 08:20 02/09/22 09:43 Height 6 ft 6 ft Weight: 241 lb BMI 32.6 BP 148/91 H 132/83 H Respiration 16 Pulse 66 Pulse Oximetry (%) 96 Intake Visit Reasons: 6 mo f/u Allergies No Known Allergies Allergy (Verified 02/09/22 08:20) Medications aspirin 81 mg tablet,delayed release 81 mg PO DAILY 09/02/18 [History Confirmed 02/09/22] carvedilol 6.25 mg tablet 6.25 mg PO BID 09/02/18 [History Confirmed 02/09/22] cholecalciferol (vitamin D3) 25 mcg (1,000 unit) capsule 1,000 unit PO DAILY 09/02/18 [History Confirmed 02/09/22] ramipril 2.5 mg capsule 2.5 mg PO DAILY 09/02/18 [History Confirmed 02/09/22] atorvastatin 80 mg tablet 80 mg PO QHS 12/15/19 [History Confirmed 02/09/22] ascorbic acid (vitamin C) 1,000 mg tablet 1,000 mg PO DAILY 04/05/20 [History Confirmed 02/09/22] ondansetron HCl 8 mg tablet 8 mg PO Q8H PRN PRN Nausea/Emesis #30 tabs 05/05/20 [Rx Confirmed 02/09/22] omega 3-dha 60 mg-epa 90 mg-fish oil 500 mg capsule, delayed release 1 cap PO DAILY 05/12/20 [History Confirmed 02/09/22] dasatinib 100 mg tablet 100 mg PO DAILY 07/13/20 [History Confirmed 02/09/22] vitamin E 200 unit capsule 200 unit PO DAILY 08/25/20 [History Confirmed 02/09/22] benzonatate 100 mg capsule (Tessalon Perles) 100 mg PO BID PRN cough #20 caps 03/18/21 [Rx Confirmed 02/09/22] doxycycline hyclate 100 mg tablet 100 mg PO BID #14 tabs 03/18/21 [Rx Confirmed 02/09/22] Ejection fraction %: 55 to 59 PFSH Medical History Atherosclerosis of coronary artery of [place] heart without angina pectoris Encounter for screening for malignant neoplasm of lung in current smoker with 30 pack year history or greater Essential (primary) hypertension Fatigue Fracture of great toe, right, open Hiatal hernia with GERD History of back problems History of ST elevation myocardial infarction (STEMI) (01/20/17) Hyperlipidemia Leukocytosis Near syncope Nicotine dependence Obesity (BMI 30.0-34.9) 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) Pneumonia Tobacco use disorder, continuous Unspecified injury of right foot, sequela Surgical History History of bilateral inguinal hernia repair (08/2018) History of bone marrow biopsy (04/13/20) History of coronary artery stent placement (01/20/17) Status post laparoscopic Migue fundoplication (10/15/18) Family History Father Colon cancer Diabetes Heart disease Hypertension CAD (coronary artery disease) Sister Breast cancer Mother CAD (coronary artery disease) Hypertension Heart disease Social History household members: spouse Smoking Status: Current every day smoker tobacco type: cigarettes Tobacco: How many years used: 40 Electronic Cigarette Use: not used second hand exposure: No quit status: considering quitting counseling given: provider counseling alcohol intake: current alcohol intake frequency: a few times a week Alcohol type: beer substance use type: does not use well-balanced diet: about half the time uyen/latter-day: Latter Day seatbelt use: always do you feel safe at home: Yes ROS Const Const: Negative for fatigue, weakness, headache(s), frequent falls, difficulty sleeping or excessive sweating Eyes Eyes: Negative for loss of peripheral vision, transient loss of vision, blurry vision, double vision or tunnel vision ENT ENT: Negative for headache(s), dizziness, Nosebleed/epistaxis or balance problems Cardio Chest Pain: No Palpitations: No Edema: None Muscle aches with walking: None Resp Respiratory: Negative for SOB with activity, SOB at rest, SOB orthopnea SOB lying down, Cough or paroxysmal nocturnal dyspnea GI GI: Negative nausea, vomiting, heartburn or black,tarry stools : Negative for hematuria Musc Musc: Negative for muscle aches/ myalgia, muscle weakness, joint pain or balance problems Skin Skin: Negative non-healing lesions, rash or unusual bruising Neuro Neuro: Negative for dizziness, lightheadedness, near syncope, syncope, orthostatic symptoms, frequent falls, headache(s), weakness, confusion, memory loss, blurry vision, double vision, vertigo or lack of coordination Reynaldo Hematologic/Lymphatic: Negative for easy bleeding or easy bruising Endo Endo: Negative for fatigue, excessive sweating, flushing or increased thirst/drinking Psych Psych: Negative for anxiety or depression Allergy Allergy/Immunology: Negative for hives and Negative for rash Cardiology Exam Const Appearance: cooperative, healthy appearing, no acute distress, well developed and well groomed Nutritional Appearance: average body habitus and well nourished Orientation: alert, awake and oriented x3 Head Head: normal to inspection, normocephalic and atraumatic Ears: hearing grossly normal bilaterally and external ears normal Nose: external nose normal, nares normal, nasal mucous membranes and turbinates normal, septum normal and no nasal discharge Face and Sinus: face symmetric Mouth: oral mucosae normal, tongue normal, oropharynx normal and moist mucous membranes Teeth and gingiva: dentition normal Throat: posterior oropharynx normal, tonsils normal and uvula midline Eyes General: appearance normal, both eyes and all related structures Eyelids: eyelids normal Conjunctivae: conjunctivae normal Pupils: PERRL, normal by confrontation and accommodation normal EOM: EOM intact bilaterally Neck Neck: normal visual inspection, trachea midline and no JVD JVD: +5 Carotids: normal carotid upstroke and bounding pulses Chest Chest inspection: normal inspection of the chest, symmetric chest movement and normal respiratory effort Auscultation: Bilateral: Clear to Auscultation Cardio Palpation: normal PMI Rate: regular rate Rhythm: regular rhythm Heart sounds: S1 normal, S2 normal and normal, physiologic split S2; Negative rub, gallop or murmur GI GI: normal to inspection, soft, no hepatosplenomegaly and bowel sounds present Neuro General: patient alert, patient awake, patient oriented x3, gait normal, moves all extremities and no focal sensory deficit Skin Skin: no rashes or lesions noted Extremities Pulses: Normal: Right Femoral Pulse, Left Femoral Pulse, Right Dorsalis Pedis Pulse, Left Dorsalis Pedis Pulse, Right Posterior Tibial Pulse, Left Posterior Tibial Pulse, Right Radial Pulse and Left Radial Pulse Lower Extremity Edema: None: Bilateral Musculoskel Musculoskeletal: No joint tenderness Psych Psychological: normal affect Supplemental Info Supplemental Information CAROTID DUPLEX 09/06/2021 Interpretation Summary Minimal plaque at the proximal right internal carotid artery with less than 50% stenosis Less than 50% stenosis right external carotid artery Minimal calcific plaque at the proximal left internal carotid artery with less than 50% stenosis Less than 50% stenosis left external carotid artery Patent and antegrade vertebrals bilaterally Exercise myocardial perfusion stress test 12/28/2020 Resting EKG demonstrates normal sinus rhythm with a rate of 65 bpm normal intervals are noted. Resting blood pressure is 102/72 mmHg. The patient exercised according to regular Gallito protocol for total duration of 9 minutes and 30 seconds. The maximum heart rate attained was 141 bpm which was 88% of maximum predicted heart rate the maximum workload was 10.7 metabolic equivalents. At rest there were no ST or T wave changes noted to suggest ischemia and at peak exercise upsloping ST changes were noted with did not meet the criteria for ischemia. No clinical angina was noted the test was terminated due to leg fatigue. The peak blood pressure was 160/68 mmHg with a rate pressure product of 21,700. Perfusion SPECT analysis: Review of the stress images demonstrate normal cardiac silhouette size. There is minimal perfusion reduction noted in the distal anterior wall towards the apex noted on the stress images. The resting images demonstrate minimal perfusion defect, with no significant improvement to suggest ischemia. Previous small infarct in this area cannot be completely excluded. The rest of the chavez appear to be normally perfused. Gated SPECT analysis: The gated ejection fraction is 65%. Conclusion: Exercise myocardial perfusion stress test with no obvious ischemia noted. Previous small anterior infarct cannot be excluded. Preserved ejection fraction. Good functional capacity. ECHOCARDIOGRAM 04/20/2020 Interpretation Summary Normal LV size. Left ventricular systolic function is normal. The estimated ejection fraction is 55 %. The global longitudinal strain is normal. The global longitudinal strain = -18.1 % (normal). Contrast injection was performed. Left Heart Catheterization/Coronary Intervention 01/20/2017 PROCEDURAL SUMMARY: Successful PCI to the mid LAD with a 4.0x20 Synergy EES Successful PCI to the mid RCA with a 4.0x16 Synergy EES, post-dilated using a 4.5 NC Euphora at high pressure Diagnostic angiogram revealed LMT without significant narrowing, large LAD with mild proximal diffuse disease, a focal severe mid LAD lesion (suspected recanalized culprit lesion for anterior STEMI) with mild diffuse disease distally, mild diffuse disease in the LCx, and the large dominant RCA had mild diffuse disease proximally before a hazy focal area which appeared to be ruptured plaque with thrombus in the mid RCA, followed by mild diffuse disease distally. Laboratory Tests 12/28/20 06:27 Triglycerides 159 Cholesterol 132 LDL Cholesterol 53 HDL Cholesterol 47 Labs: No Data to Display Diagnostics: Electrocardiogram Chest X-Ray Pulmonary: No Data to Display Assessment and Plan Assessment and Plan (1) History of coronary artery stent placement: Status: Resolved Comment: PCI-NICA-Mid LAD 4.0 x 20 mm Synergy, NICA-Mid RCA w/ 4.0 x 16mm Synergy 01/20/2017 Plan: He is status post previous angioplasty and stenting as noted above. At this juncture I would recommend that we continue him on his current medical therapy without any changes. His last stress test was in 2019. At his next visit we will consider repeating his stress test. (2) Essential (primary) hypertension: Status: Chronic Plan: His blood pressure is under good control at this particular time and I would not recommend that we make any changes. (3) Chronic myeloid leukemia: Status: Chronic Plan: He does have chronic myeloid leukemia on Dasatinib and he is being followed closely by the oncology service. Thank you for allowing me to participate in the care of your patient. Please don't hesitate to call if any issues arise. Plan Details 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) Coding Level of Care Code Off vis,est,level 3 Diagnoses History of coronary artery stent placement Z95.5 Essential (primary) hypertension I10 Chronic myeloid leukemia C92.10 Coding Level of Care Code Off vis,est,level 3 Diagnoses History of coronary artery stent placement Z95.5 Essential (primary) hypertension I10 Chronic myeloid leukemia C92.10 02/09/22 0953 <Electronically signed by Hector Hsu MD> Date Hector Hsu MD Cosigner Signature: Date (if applicable) CC: Dr. Jocelin Saunders DO; MD Jocelin Langford DO Work Phone: Start: 12-27-2021 End: 12-27-2021 Oncology Visit Report Comments: See Note; NOTES: [facility] [address] [place] [address] OFFICE VISIT Date of Service: 12/27/21 1023 MR#: [id number] Acct: [id number] Name: FREDERIC OVALLES Rep #: [id number] : 1960 From: Savi Rodriguez NP FERMENTER HELPER -C Age/Sex: 61/M Location: [facility] [place] Status: Signed HPI Subjective Date of Service 12/27/21 Chief Complaint Chronic myeloid leukemia on treatment History of Present Illness 61-year-old gentleman with no known chronic inflammatory or infectious diseases referred in consultation because of a persistent leukocytosis. March 2020 peripheral blood BCR ABL by FISH was positive consistent with chronic myeloid leukemia. Bone marrow aspirate and biopsy April 13, 2020: BONE MARROW DIAGNOSIS Bone marrow biopsy, clot and aspiration (specimens A-C): Hypercellular bone marrow. No stainable iron identified. No evidence of lymphoproliferative disorder. See comment. COMMENT Flow cytometry analysis reveals no increased blasts population. However, myeloid elements exhibit aberrant expression of CD56 and show left shift with down-regulation of CD10 and CD16. The findings are compatible with an underlying primary myeloid neoplasm. The flow cytometry analysis report from [employer] is reviewable in the patient???s EMR. BONE MARROW STUDY Slides are reviewed. CBC DATE: 04/13/20 WBC 22.5; RBC 5.33; HGB 15.8; HCT 48.5; MCV 91.0; RDW 48.2; PLTS 206,000 SEGS 54%; LYMPHS 23%; MONOS 11%; EOS 2%; BASOS 0% PERIPHERAL SMEAR: Submitted. RBC: Normochromic, normomorphic WBC: Neutrophilic leukocytosis with slight left shift. PLTS: Normomorphic BONE MARROW ASPIRATE DIFFERENTIAL: 200 cell count. Blasts % (normal 0-2): 2 Promyelocytes % (normal 1-5): 5 Myelocytes and metamyelocytes % (normal 17-41): 38 Bands and Segs % (normal 15-32): 26 Eos % (normal 1-6): 2 Basos % (normal 0-1): 0 Monocytes % (normal 0-4): 2 Erythroid Precursors % (normal 17-35): 18 Lymphocytes % (normal 7-13): 7 Plasma Cells % (normal 0-2): 0 ASPIRATE FINDINGS: Site: Not specified Paucispicular Cellular M/E ratio: Within normal limits (Normal 1.5 - 4.0) Megakaryocytes: Adequate Erythropoiesis: Progressive Granulopoiesis: Normoblastic CORE BIOPSY FINDINGS: Site: Not specified Adequacy: No bone present Cellularity %: Not applicable M/E ratio: Not applicable Blood Only rare marrow cell noted. ASPIRATE CLOT FINDINGS: Site: Not specified Marrow Particles: Many Cellularity %: 80% M/E ratio: Within normal limits Megakaryocytes: Adequate Granuloma(s): 0 Lymphoid aggregate(s): 0 Atypical infiltrate(s): 0 SPECIAL STAINS (with matched controls): Iron: Stainable iron not present Reticulin: Within normal limits PAS: Highlights myeloid elements and megakaryocytes. ADDENDUM FISH BCR/ABL1 REPORT FROM [facility] INTERPRETATION: BCR/ABL gene rearrangement is detected. RESULTS: BCR/ABL1 Normal Nuclei Positive Nuclei with Dual Fusion 3.33% 96.67% CYTOGENETICS REPORT FROM [facility] INTERPRETATION: Abnormal male karyotype was observed in twenty metaphases analyzed. 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 He denies any concerns r/t today's visit. Reports adherence to therapy with dasatinib 100 mg, takes daily in the evening. Tolerates well. Specifically fever/chills, sweats, CP, palpitations, cough, SOB, abd pain, N/V, constipation, diarrhea, rash, swelling/pain of his extremities and episodes of overt bleeding or abnormal bruising. Appetite good, PO fluid intake likely adequate. Rarely experiences a headache in the evenings, typically does not require any otc analgesia. [facility] Medical History Atherosclerosis of coronary artery of [place] heart without angina pectoris Encounter for screening for malignant neoplasm of lung in current smoker with 30 pack year history or greater Essential (primary) hypertension Fatigue Fracture of great toe, right, open Hiatal hernia with GERD History of back problems History of ST elevation myocardial infarction (STEMI) (01/20/17) Hyperlipidemia Leukocytosis Near syncope Nicotine dependence Obesity (BMI 30.0-34.9) 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) Pneumonia Tobacco use disorder, continuous Unspecified injury of right foot, sequela Surgical History History of bilateral inguinal hernia repair (08/2018) History of bone marrow biopsy (04/13/20) History of coronary artery stent placement (01/20/17) Status post laparoscopic Migue fundoplication (10/15/18) Family History Father Colon cancer Diabetes Heart disease Hypertension CAD (coronary artery disease) Sister Breast cancer Mother CAD (coronary artery disease) Hypertension Heart disease Social History household members: spouse Smoking Status: Current every day smoker tobacco type: cigarettes Tobacco: How many years used: 40 Electronic Cigarette Use: not used second hand exposure: No quit status: considering quitting counseling given: provider counseling alcohol intake: current alcohol intake frequency: a few times a week Alcohol type: beer substance use type: does not use well-balanced diet: about half the time uyen/latter-day: Latter Day seatbelt use: always do you feel safe at home: Yes ROS ROS Narrative Negative except as documented in the interval HPI Intake Vital Signs 12/27/21 10:23 Height 6 ft Weight: 239 lb 7 oz BMI 32.4 BP 136/77 H Blood Pressure Location Lt brachial Position Sitting Respiration 15 Pulse 69 Pulse Source Monitor Temp 98.2 F Temperature Source Temporal Artery Pulse Oximetry (%) 97 Oxygen Delivery Method room air Intake Price Accuracy Supervisor Required: No Is patient in pain?: No Allergies No Known Allergies Allergy (Verified 11/22/21 11:28) Medications aspirin 81 mg tablet,delayed release 81 mg PO DAILY 09/02/18 [History Confirmed 12/27/21] carvedilol 6.25 mg tablet 6.25 mg PO BID 09/02/18 [History Confirmed 12/27/21] cholecalciferol (vitamin D3) 25 mcg (1,000 unit) capsule 1,000 unit PO DAILY 09/02/18 [History Confirmed 12/27/21] ramipril 2.5 mg capsule 2.5 mg PO DAILY 09/02/18 [History Confirmed 12/27/21] atorvastatin 80 mg tablet 80 mg PO QHS tab 12/15/19 [History Confirmed 12/27/21] ascorbic acid (vitamin C) 1,000 mg PO DAILY 04/05/20 [History Confirmed 12/27/21] ondansetron HCl 8 mg PO Q8H PRN PRN #30 tab 05/05/20 [Rx Confirmed 12/27/21] omega 5-aue-uud-fish oil 1 cap PO DAILY 05/12/20 [History Confirmed 12/27/21] dasatinib 100 mg PO DAILY 07/13/20 [History Confirmed 12/27/21] vitamin E 200 unit PO DAILY 08/25/20 [History Confirmed 12/27/21] benzonatate [Tessalon Perles] 100 mg PO BID PRN #20 cap 03/18/21 [Rx Confirmed 12/27/21] doxycycline hyclate 100 mg PO BID #14 tab 03/18/21 [Rx Confirmed 12/27/21] Central Venous Access Central Venous Access: No Laboratory Tests 12/12/21 12/12/21 08:16 08:16 WBC 5.6 Hgb 14.9 Plt Count 244 Absolute Neuts (auto) 3.0 BUN 11 Creatinine 0.87 AST 27 ALT 43 Alkaline Phosphatase 61 Albumin 4.2 12/12/21 BCR-ABL1, CML/ALL, PCR, Quant e13a2 (b2a2) transcript <0.0032 % e14a2 (b3a2) transcript % <0.0032 % e1a2 transcript % <0.0032 % Exam Physical Exam Const alert and oriented x3 Constitutional Narrative: ECOG 0-1 General Appearance: cooperative Nutritional Appearance: overweight HEENT normocephalic Head and Scalp: normal to inspection Mouth: oral and palatal mucosa normal Eyes conjunctivae normal and no scleral icterus General Eye: normal appearance of both eyes Neck no lymphadenopathy and no JVD Lymph Lymphatic: no lymphadenopathy noted Chest Chest: symmetrical chest wall rise Resp normal respiratory effort and clear to auscultation bilaterally Cardio regular rate, regular rhythm, S1 normal heart sound, S2 normal heart sound and no murmurs Jugular Venous Distention: Negative for JVD GI soft to palpation, non-tender and non-distended; Negative for hepatosplenomegaly no CVA tenderness Back/Spine no thoracic nor lumbar tenderness Extremity no clubbing, cyanosis or edema Skin no rashes or lesions noted Neuro CN's II-XII intact bilaterally, moves all extremities and no focal motor deficits Speech: speech normal Gait (Neuro): normal gait Psych mental status grossly normal Coding Level of Care Code Off vis,est,level 3 Diagnoses Chronic myeloid leukemia C92.10 Assessment and Plan Assessment and Plan (1) Chronic myeloid leukemia: Status: Chronic Orders: Orders: Comprehensive Metabolic Profil 3 Months C92.10 CBC W/Diff, Automated 3 Months C92.10 Miscellaneous Lab Procedure 3 Months C92.10 Plan - Savi Rodriguez NP, FERMENTER HELPER-C: 61-year-old male who presented with with a mature neutrophilic leukocytosis first noted January 2020, progressively worsening. He has no known chronic inflammatory or infectious diseases. BCR ABL profile with FISH is positive consistent with chronic myeloid leukemia. Bone marrow aspirate and biopsy March 2020 confirmed the diagnosis with a q BCR ABL positivity of 96.67% Started TKI therapy with dasatinib April 28, 2020, a decline in WBC/ANC is consistent with a hematologic response within the first month of treatment. Treatment is tolerated with no grade 3 or 4 toxicities. Mild elevation of liver enzymes less than 2 fold resolved and an increasing leukopenia with preserved neutrophil count noted at 4 weeks of treatment also resolved with continued standard dosing. He showed a major molecular response (MMR) to treatment , however October 2021 he is showing an upward trend and q. BCR ABL see table below for summary of response: Date qBCR-ABL (e13a2/b2a2) 03/30/2020 159.1086 08/10/2020 0.3342 11/10/2020 0.017 02/08/2021 0.031 05/09/2021 0.0626 08/09/2021 0.0559 11/08/2021 0.2603 Comorbid conditions: smoker with over 30 pack years cigarettes (started at age 18 averaging 1/2 to 1 pack of cigarettes daily), hypertension, coronary artery disease, cerebrovascular disease and dyslipidemia. Plan: #1-Continue dasatinib standard dose and follow-up in 12 weeks with a repeat q. BCR ABL. Patient confirms adherence to treatment. His pretreatment left ventricular ejection fraction normal at 55% March 2020. His EKG showed normal sinus rhythm with a normal QT/QTc 392/44 ms Hepatitis serologies showed no active chronic hepatitis #2-for occasional nausea continue to use ondansetron as needed. 12/27/21 1123 <Electronically signed by Savi Michael FERMENTER HELPER FERMENTER HELPER-C> Date Savi Michael FERMENTER HELPER FERMENTER HELPER-C Cosigner Signature: Date (if applicable) CC: Dr. Jocelin Saunders, DO Jocelin Saunders DO Work Phone: Start: 11-22-2021 End: 11-22-2021 Oncology Visit Report Comments: See Note; NOTES: [facility] [address] [place] [address]. [place] [address] OFFICE VISIT Date of Service: 11/22/21 1123 MR#: [id number] Acct: [id number] Name: FREDERIC OVALLES Rep #: [id number] : 1960 From: Sawyer Delgado MD Age/Sex: 61/M Location: [facility] – [place] Status: Signed HPI Subjective Date of Service 11/22/21 Chief Complaint Chronic myeloid leukemia on treatment History of Present Illness 60-year-old gentleman with no known chronic inflammatory or infectious diseases referred in consultation because of a persistent leukocytosis. March 2020 peripheral blood BCR ABL by FISH was positive consistent with chronic myeloid leukemia. Bone marrow aspirate and biopsy April 13, 2020: BONE MARROW DIAGNOSIS Bone marrow biopsy, clot and aspiration (specimens A-C): Hypercellular bone marrow. No stainable iron identified. No evidence of lymphoproliferative disorder. See comment. COMMENT Flow cytometry analysis reveals no increased blasts population. However, myeloid elements exhibit aberrant expression of CD56 and show left shift with down-regulation of CD10 and CD16. The findings are compatible with an underlying primary myeloid neoplasm. The flow cytometry analysis report from [facility] is reviewable in the patient???s EMR. BONE MARROW STUDY Slides are reviewed. CBC DATE: 04/13/20 WBC 22.5; RBC 5.33; HGB 15.8; HCT 48.5; MCV 91.0; RDW 48.2; PLTS 206,000 SEGS 54%; LYMPHS 23%; MONOS 11%; EOS 2%; BASOS 0% PERIPHERAL SMEAR: Submitted. RBC: Normochromic, normomorphic WBC: Neutrophilic leukocytosis with slight left shift. PLTS: Normomorphic BONE MARROW ASPIRATE DIFFERENTIAL: 200 cell count. Blasts % (normal 0-2): 2 Promyelocytes % (normal 1-5): 5 Myelocytes and metamyelocytes % (normal 17-41): 38 Bands and Segs % (normal 15-32): 26 Eos % (normal 1-6): 2 Basos % (normal 0-1): 0 Monocytes % (normal 0-4): 2 Erythroid Precursors % (normal 17-35): 18 Lymphocytes % (normal 7-13): 7 Plasma Cells % (normal 0-2): 0 ASPIRATE FINDINGS: Site: Not specified Paucispicular Cellular M/E ratio: Within normal limits (Normal 1.5 - 4.0) Megakaryocytes: Adequate Erythropoiesis: Progressive Granulopoiesis: Normoblastic CORE BIOPSY FINDINGS: Site: Not specified Adequacy: No bone present Cellularity %: Not applicable M/E ratio: Not applicable Blood Only rare marrow cell noted. ASPIRATE CLOT FINDINGS: Site: Not specified Marrow Particles: Many Cellularity %: 80% M/E ratio: Within normal limits Megakaryocytes: Adequate Granuloma(s): 0 Lymphoid aggregate(s): 0 Atypical infiltrate(s): 0 SPECIAL STAINS (with matched controls): Iron: Stainable iron not present Reticulin: Within normal limits PAS: Highlights myeloid elements and megakaryocytes. ADDENDUM FISH BCR/ABL1 REPORT FROM [facility] INTERPRETATION: BCR/ABL gene rearrangement is detected. RESULTS: BCR/ABL1 Normal Nuclei Positive Nuclei with Dual Fusion 3.33% 96.67% CYTOGENETICS REPORT FROM [facility] INTERPRETATION: Abnormal male karyotype was observed in twenty metaphases analyzed. 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] Treatment: Dasatinib 100 mg daily April 28, 2020- [facility] Medical History Atherosclerosis of coronary artery of [place] heart without angina pectoris Encounter for screening for malignant neoplasm of lung in current smoker with 30 pack year history or greater Essential (primary) hypertension Fatigue Fracture of great toe, right, open Hiatal hernia with GERD History of back problems History of ST elevation myocardial infarction (STEMI) (01/20/17) Hyperlipidemia Leukocytosis Near syncope Nicotine dependence Obesity (BMI 30.0-34.9) 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) Pneumonia Tobacco use disorder, continuous Unspecified injury of right foot, sequela Surgical History History of bilateral inguinal hernia repair (08/2018) History of bone marrow biopsy (04/13/20) History of coronary artery stent placement (01/20/17) Status post laparoscopic Migue fundoplication (10/15/18) Family History Father Colon cancer Diabetes Heart disease Hypertension CAD (coronary artery disease) Sister Breast cancer Mother CAD (coronary artery disease) Hypertension Heart disease Social History household members: spouse Smoking Status: Current every day smoker tobacco type: cigarettes Tobacco: How many years used: 40 Electronic Cigarette Use: not used second hand exposure: No quit status: considering quitting counseling given: provider counseling alcohol intake: current alcohol intake frequency: a few times a week Alcohol type: beer substance use type: does not use well-balanced diet: about half the time uyen/latter-day: Latter Day seatbelt use: always do you feel safe at home: Yes ROS Constitutional Constitutional: Reports systems reviewed and no addt'l complaints, except as documented; Denies fatigue, fever(s) or weight loss Eyes Eyes: Reports systems reviewed and no addt'l complaints, except as documented ENT HEENT: Reports systems reviewed and no addt'l complaints, except as documented; Denies headache(s), mouth lesions or mucositis Cardiovascular Cardiovascular: Reports systems reviewed and no addt'l complaints, except as documented; Denies chest pain with activity or edema Respiratory/Chest Respiratory/Chest: Reports systems reviewed and no addt'l complaints, except as documented; Denies cough or dyspnea on exertion Gastrointestinal Gastrointestinal: Reports systems reviewed and no addt'l complaints, except as documented; Denies change in bowel habits, diarrhea or nausea Genitourinary Genitourinary: Reports systems reviewed and no addt'l complaints, except as documented; Denies dysuria Musculoskeletal Musculoskeletal: Reports systems reviewed and no addt'l complaints, except as documented, back pain and other Details: Chronic back pain unchanged Integumentary Integumentary: Reports systems reviewed and no addt'l complaints, except as documented, dry skin, rash and other Details: None itchy rash on upper arms Neurologic Neurologic: Reports systems reviewed and no addt'l complaints, except as documented, dizziness and other; Denies headache(s) or weakness Psychiatric Psychiatric: Reports systems reviewed and no addt'l complaints, except as documented Endocrine Endocrinology: Reports systems reviewed and no addt'l complaints, except as documented Hematologic/Lymphatic Hematologic/Lymphatic: Reports systems reviewed and no addt'l complaints, except as documented; Denies easy bleeding or easy bruising Allergic/Immunologic Allergic/Immunologic: Reports systems reviewed and no addt'l complaints, except as documented Intake Vital Signs 11/22/21 11:24 Height 6 ft Weight: 109.996 kg BMI 32.8 BP 128/76 H Blood Pressure Location Lt brachial Position Sitting Respiration 16 Pulse 63 Pulse Source Monitor Temp 98.1 F Temperature Source Temporal Artery Pulse Oximetry (%) 96 Oxygen Delivery Method simple mask Intake Price Accuracy Supervisor Required: No Accompanied by: Self Is patient in pain?: Yes (back ) Pain scale (1-10): 8 Allergies No Known Allergies Allergy (Verified 11/22/21 11:28) Medications aspirin 81 mg tablet,delayed release 81 mg PO DAILY 09/02/18 [History Confirmed 11/22/21] carvedilol 6.25 mg tablet 6.25 mg PO BID 09/02/18 [History Confirmed 11/22/21] cholecalciferol (vitamin D3) 25 mcg (1,000 unit) capsule 1,000 unit PO DAILY 09/02/18 [History Confirmed 11/22/21] ramipril 2.5 mg capsule 2.5 mg PO DAILY 09/02/18 [History Confirmed 11/22/21] atorvastatin 80 mg tablet 80 mg PO QHS tab 12/15/19 [History Confirmed 11/22/21] ascorbic acid (vitamin C) 1,000 mg PO DAILY 04/05/20 [History Confirmed 11/22/21] ondansetron HCl 8 mg PO Q8H PRN PRN #30 tab 05/05/20 [Rx Confirmed 11/22/21] omega 2-vmc-zdw-fish oil 1 cap PO DAILY 05/12/20 [History Confirmed 11/22/21] dasatinib 100 mg PO DAILY 07/13/20 [History Confirmed 11/22/21] vitamin E 200 unit PO DAILY 08/25/20 [History Confirmed 11/22/21] benzonatate [Tessalon Perles] 100 mg PO BID PRN #20 cap 03/18/21 [Rx Confirmed 11/22/21] doxycycline hyclate 100 mg PO BID #14 tab 03/18/21 [Rx Confirmed 11/22/21] Central Venous Access Central Venous Access: No Exam Physical Exam Const alert and oriented x3 Constitutional Narrative: ECOG 0-1 General Appearance: cooperative Nutritional Appearance: overweight HEENT normocephalic Head and Scalp: normal to inspection Mouth: oral and palatal mucosa normal Eyes conjunctivae normal and no scleral icterus General Eye: normal appearance of both eyes Neck no lymphadenopathy and no JVD Lymph Lymphatic: no lymphadenopathy noted Chest Chest: symmetrical chest wall rise Resp normal respiratory effort and clear to auscultation bilaterally Cardio regular rate, regular rhythm, S1 normal heart sound, S2 normal heart sound and no murmurs Jugular Venous Distention: Negative for JVD GI soft to palpation, non-tender and non-distended; Negative for hepatosplenomegaly no CVA tenderness Back/Spine no thoracic nor lumbar tenderness Extremity no clubbing, cyanosis or edema Skin no rashes or lesions noted Neuro oriented x3, CN's II-XII intact bilaterally, moves all extremities and no focal motor deficits Coordination / Balance: metfxc-st-szgf test normal Speech: speech normal Gait (Neuro): normal gait Psych mental status grossly normal Coding Level of Care Code Off vis,est,level 4 Diagnoses Chronic myeloid leukemia C92.10 Assessment and Plan Assessment and Plan (1) Chronic myeloid leukemia: Status: Chronic Plan - Dr. Sawyer Delgado MD: 61-year-old male who presented with with a mature neutrophilic leukocytosis first noted January 2020, progressively worsening. He has no known chronic inflammatory or infectious diseases. BCR ABL profile with FISH is positive consistent with chronic myeloid leukemia. Bone marrow aspirate and biopsy March 2020 confirmed the diagnosis with a q BCR ABL positivity of 96.67% Started TKI therapy with dasatinib April 28, 2020, a decline in WBC/ANC is consistent with a hematologic response within the first month of treatment. Treatment is tolerated with no grade 3 or 4 toxicities. Mild elevation of liver enzymes less than 2 fold resolved and an increasing leukopenia with preserved neutrophil count noted at 4 weeks of treatment also resolved with continued standard dosing. He showed a major molecular response (MMR) to treatment , however October 2021 he is showing an upward trend and q. BCR ABL see table below for summary of response: Date qBCR-ABL (e13a2/b2a2) 03/30/2020 159.1086 08/10/2020 0.3342 11/10/2020 0.017 02/08/2021 0.031 05/09/2021 0.0626 08/09/2021 0.0559 11/08/2021 0.2603 Comorbid conditions: smoker with over 30 pack years cigarettes (started at age 18 averaging 1/2 to 1 pack of cigarettes daily), hypertension, coronary artery disease, cerebrovascular disease and dyslipidemia. Plan: #1-Continue dasatinib standard dose and follow-up in 4-6 weeks with a repeat q. BCR ABL. Patient reports he takes his pills faithfully and did not miss a single dose. His pretreatment left ventricular ejection fraction normal at 55% March 2020. His EKG showed normal sinus rhythm with a normal QT/QTc 392/44 ms Hepatitis serologies showed no active chronic hepatitis #2-for occasional nausea continue to use ondansetron as needed. #3-Lung cancer screening : He is up-to-date, next CT of the chest to schedule for May 2022 . Patient was seen , impression and plan discussed. Sawyer Delgado MD Transit Driver, [facility] Divisions of Medical Oncology Hematology Department of Internal Medicine [facility] [place] [phone] This note was generated using a voice recognition system software. Although it was reviewed by the author prior to finalization, it may still contain incorrect words, spelling, and punctuation that were not noted when reviewing prior to saving. If a clinically significant typo or inaccurately typed phrase is noted, please notify the author. 11/22/21 5690 <Electronically signed by Sawyer Delgado MD> Date Sawyer Delgado [facility] Signature: Date (if applicable) CC: Jocelin Saunders DO Work Phone: Start: 09-06-2021 End: 09-06-2021 Carotid Duplex Ultrasound Comments: See Note; NOTES: [facility] [address] [place] [address] Carotid Duplex Ultrasound 09/06/21 1106 MR#: [id number] Acct: [id number] Name: FREDERIC OVALLES Rep #: [id number] : 1960 61 From: Wolfgang Thompson MD Attending Dr: Dr. Hector Hsu MD Status: REG C Ordering Dr: Hector Hsu MD Date: 09/06/21 Location: [facility] Sex: M C Admitted: Reason For Study: SYNCOPE Rt. Velocities/BP Lt. Velocities/BP Prox CCA 94.3/9.5 cm/sec. Prox CCA 179.1/32.0 cm/sec. Mid CCA 90.4/17.3 cm/sec. Mid CCA 115.4/18.9 cm/sec. Dist CCA 73.8/13.8 cm/sec. Dist CCA 60.6/16.7 cm/sec. Prox ICA 45.0/13.8 cm/sec. Prox ICA 79.3/24.1 cm/sec. Mid ICA 51.6/18.5 cm/sec. Mid ICA 81.8/30.2 cm/sec. Dist ICA 57.2/18.5 cm/sec. Dist ICA 81.8/30.2 cm/sec. Rt. ICA/CCA = .6. Lt. ICA/CCA = .7. Prox ECA 103.8/29.5 cm/sec. Prox ECA 154.8/25.4 cm/sec. Rt. Vert. 61.0/11.9 cm/sec. Lt. Vert. 42.5/13.0 cm/sec. Right Extracranial There is homogeneous, smooth atherosclerotic plaque noted in the right common carotid artery. There is heterogeneous, irregular atherosclerotic plaque noted in the right internal carotid artery. There is no significant atherosclerotic plaque noted in the right external carotid artery. The right external carotid artery is tortuous. Antegrade flow is noted in the right vertebral artery. Left Extracranial There is homogeneous, smooth atherosclerotic plaque noted in the left common carotid artery. There is heterogeneous, smooth atherosclerotic plaque noted in the left internal carotid artery. There is no significant atherosclerotic plaque noted in the left external carotid artery. Antegrade flow is noted in the left vertebral artery. Procedure Carotid Duplex 49921. Exam performed in department. VL/Carotid Duplex Ultrasound Interpretation Summary Minimal plaque at the proximal right internal carotid artery with less than 50% stenosis Less than 50% stenosis right external carotid artery Minimal calcific plaque at the proximal left internal carotid artery with less than 50% stenosis Less than 50% stenosis left external carotid artery Patent and antegrade vertebrals bilaterally _ Ordering Physician: Hector Hsu Referring Physician: JOCELIN SAUNDERS Performed By: Yoli Mayberry, RDCS, RVT 09/06/21 1237 Date Wolfgang Thompson MD CC: Dr. Hector Hsu MD; Dr. Jocelin Saunders DO Date Dictated: 09/06/21 1106 Date Transcribed: 09/06/21 1237 Wool Supplier: Lauri Saunders DO Work Phone: Start: 08-23-2021 End: 08-23-2021 Oncology Visit Report Comments: See Note; NOTES: [facility] [address] [place] [address] OFFICE VISIT Date of Service: 08/23/21 1115 MR#: [id number] Acct: [id number] Name: FREDERIC OVALLES Rep #: [id number] : 1960 From: Sawyer Delgado MD Age/Sex: 61/M Location: [facility] – [place] Status: Signed HPI Subjective Date of Service 08/23/21 Chief Complaint Chronic myeloid leukemia on treatment History of Present Illness 60-year-old gentleman with no known chronic inflammatory or infectious diseases referred in consultation because of a persistent leukocytosis. March 2020 peripheral blood BCR ABL by FISH was positive consistent with chronic myeloid leukemia. Bone marrow aspirate and biopsy April 13, 2020: BONE MARROW DIAGNOSIS Bone marrow biopsy, clot and aspiration (specimens A-C): Hypercellular bone marrow. No stainable iron identified. No evidence of lymphoproliferative disorder. See comment. COMMENT Flow cytometry analysis reveals no increased blasts population. However, myeloid elements exhibit aberrant expression of CD56 and show left shift with down-regulation of CD10 and CD16. The findings are compatible with an underlying primary myeloid neoplasm. The flow cytometry analysis report from [facility] is reviewable in the patient???s EMR. BONE MARROW STUDY Slides are reviewed. CBC DATE: 04/13/20 WBC 22.5; RBC 5.33; HGB 15.8; HCT 48.5; MCV 91.0; RDW 48.2; PLTS 206,000 SEGS 54%; LYMPHS 23%; MONOS 11%; EOS 2%; BASOS 0% PERIPHERAL SMEAR: Submitted. RBC: Normochromic, normomorphic WBC: Neutrophilic leukocytosis with slight left shift. PLTS: Normomorphic BONE MARROW ASPIRATE DIFFERENTIAL: 200 cell count. Blasts % (normal 0-2): 2 Promyelocytes % (normal 1-5): 5 Myelocytes and metamyelocytes % (normal 17-41): 38 Bands and Segs % (normal 15-32): 26 Eos % (normal 1-6): 2 Basos % (normal 0-1): 0 Monocytes % (normal 0-4): 2 Erythroid Precursors % (normal 17-35): 18 Lymphocytes % (normal 7-13): 7 Plasma Cells % (normal 0-2): 0 ASPIRATE FINDINGS: Site: Not specified Paucispicular Cellular M/E ratio: Within normal limits (Normal 1.5 - 4.0) Megakaryocytes: Adequate Erythropoiesis: Progressive Granulopoiesis: Normoblastic CORE BIOPSY FINDINGS: Site: Not specified Adequacy: No bone present Cellularity %: Not applicable M/E ratio: Not applicable Blood Only rare marrow cell noted. ASPIRATE CLOT FINDINGS: Site: Not specified Marrow Particles: Many Cellularity %: 80% M/E ratio: Within normal limits Megakaryocytes: Adequate Granuloma(s): 0 Lymphoid aggregate(s): 0 Atypical infiltrate(s): 0 SPECIAL STAINS (with matched controls): Iron: Stainable iron not present Reticulin: Within normal limits PAS: Highlights myeloid elements and megakaryocytes. ADDENDUM FISH BCR/ABL1 REPORT FROM [facility] INTERPRETATION: BCR/ABL gene rearrangement is detected. RESULTS: BCR/ABL1 Normal Nuclei Positive Nuclei with Dual Fusion 3.33% 96.67% CYTOGENETICS REPORT FROM [facility] INTERPRETATION: Abnormal male karyotype was observed in twenty metaphases analyzed. 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] Treatment: Dasatinib 100 mg daily April 28, 2020- [facility] Medical History Atherosclerosis of coronary artery of [place] heart without angina pectoris Encounter for screening for malignant neoplasm of lung in current smoker with 30 pack year history or greater Essential (primary) hypertension Fatigue Fracture of great toe, right, open Hiatal hernia with GERD History of back problems History of ST elevation myocardial infarction (STEMI) (01/20/17) Hyperlipidemia Leukocytosis Near syncope Nicotine dependence Obesity (BMI 30.0-34.9) 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) Pneumonia Tobacco use disorder, continuous Unspecified injury of right foot, sequela Surgical History History of bilateral inguinal hernia repair (08/2018) History of bone marrow biopsy (04/13/20) History of coronary artery stent placement (01/20/17) Status post laparoscopic Migue fundoplication (10/15/18) Family History Father Colon cancer Diabetes Heart disease Hypertension CAD (coronary artery disease) Sister Breast cancer Mother CAD (coronary artery disease) Hypertension Heart disease Social History household members: spouse Smoking Status: Current every day smoker tobacco type: cigarettes Tobacco: How many years used: 40 Electronic Cigarette Use: not used second hand exposure: No quit status: considering quitting counseling given: provider counseling alcohol intake: current alcohol intake frequency: a few times a week Alcohol type: beer substance use type: does not use well-balanced diet: about half the time uyen/latter-day: Latter Day seatbelt use: always do you feel safe at home: Yes ROS Constitutional Constitutional: Reports systems reviewed and no addt'l complaints, except as documented; Denies fatigue, fever(s) or weight loss Eyes Eyes: Reports systems reviewed and no addt'l complaints, except as documented ENT HEENT: Reports systems reviewed and no addt'l complaints, except as documented; Denies headache(s), mouth lesions or mucositis Cardiovascular Cardiovascular: Reports systems reviewed and no addt'l complaints, except as documented; Denies chest pain with activity or edema Respiratory/Chest Respiratory/Chest: Reports systems reviewed and no addt'l complaints, except as documented; Denies cough or dyspnea on exertion Gastrointestinal Gastrointestinal: Reports systems reviewed and no addt'l complaints, except as documented; Denies change in bowel habits, diarrhea or nausea Genitourinary Genitourinary: Reports systems reviewed and no addt'l complaints, except as documented; Denies dysuria Musculoskeletal Musculoskeletal: Reports systems reviewed and no addt'l complaints, except as documented, back pain and other Details: Chronic back pain unchanged Integumentary Integumentary: Reports systems reviewed and no addt'l complaints, except as documented, dry skin, rash and other Details: None itchy rash on upper arms Neurologic Neurologic: Reports systems reviewed and no addt'l complaints, except as documented, dizziness and other; Denies headache(s) or weakness Psychiatric Psychiatric: Reports systems reviewed and no addt'l complaints, except as documented Endocrine Endocrinology: Reports systems reviewed and no addt'l complaints, except as documented Hematologic/Lymphatic Hematologic/Lymphatic: Reports systems reviewed and no addt'l complaints, except as documented; Denies easy bleeding or easy bruising Allergic/Immunologic Allergic/Immunologic: Reports systems reviewed and no addt'l complaints, except as documented Intake Vital Signs 08/23/21 11:18 Height 6 ft Weight: 109.543 kg BMI 32.7 BP 131/84 H Blood Pressure Location Rt brachial Position Sitting Respiration 18 Pulse 66 Pulse Source Monitor Temp 99.1 F Temperature Source Temporal Artery Pulse Oximetry (%) 93 Oxygen Delivery Method room air Intake Is patient in pain?: No Allergies No Known Allergies Allergy (Verified 08/23/21 11:17) Medications aspirin 81 mg tablet,delayed release 81 mg PO DAILY 09/02/18 [History Confirmed 08/23/21] carvedilol 6.25 mg tablet 6.25 mg PO BID 09/02/18 [History Confirmed 08/23/21] cholecalciferol (vitamin D3) 25 mcg (1,000 unit) capsule 1,000 unit PO DAILY 09/02/18 [History Confirmed 08/23/21] ramipril 2.5 mg capsule 2.5 mg PO DAILY 09/02/18 [History Confirmed 08/23/21] atorvastatin 80 mg tablet 80 mg PO QHS tab 12/15/19 [History Confirmed 08/23/21] ascorbic acid (vitamin C) 1,000 mg PO DAILY 04/05/20 [History Confirmed 08/23/21] ondansetron HCl 8 mg PO Q8H PRN PRN #30 tab 05/05/20 [Rx Confirmed 08/23/21] omega 9-dyj-ydt-fish oil 1 cap PO DAILY 05/12/20 [History Confirmed 08/23/21] dasatinib 100 mg PO DAILY 07/13/20 [History Confirmed 08/23/21] vitamin E 200 unit PO DAILY 08/25/20 [History Confirmed 08/23/21] benzonatate [Tessalon Perles] 100 mg PO BID PRN #20 cap 03/18/21 [Rx Confirmed 08/23/21] doxycycline hyclate 100 mg PO BID #14 tab 03/18/21 [Rx Confirmed 08/23/21] Central Venous Access Central Venous Access: No CBC, CMP July 2021 reviewed in EMR, BCR able quantitative July 2021 reviewed in EMR. Exam Physical Exam Const alert and oriented x3 Constitutional Narrative: ECOG 0-1 General Appearance: cooperative Nutritional Appearance: overweight HEENT normocephalic Head and Scalp: normal to inspection Mouth: oral and palatal mucosa normal Eyes conjunctivae normal and no scleral icterus General Eye: normal appearance of both eyes Neck no lymphadenopathy and no JVD Lymph Lymphatic: no lymphadenopathy noted Chest Chest: symmetrical chest wall rise Resp normal respiratory effort and clear to auscultation bilaterally Cardio regular rate, regular rhythm, S1 normal heart sound, S2 normal heart sound and no murmurs Jugular Venous Distention: Negative for JVD GI soft to palpation, non-tender and non-distended; Negative for hepatosplenomegaly no CVA tenderness Back/Spine no thoracic nor lumbar tenderness Extremity no clubbing, cyanosis or edema Skin no rashes or lesions noted Neuro oriented x3, CN's II-XII intact bilaterally, moves all extremities and no focal motor deficits Coordination / Balance: asworr-iv-vpcd test normal Speech: speech normal Gait (Neuro): normal gait Psych mental status grossly normal Coding Level of Care Code Off vis,est,level 4 Diagnoses Chronic myeloid leukemia C92.10 Assessment and Plan Assessment and Plan (1) Chronic myeloid leukemia: Status: Chronic Plan - Dr. Sawyer Delgado MD: 60-year-old male who presented with with a mature neutrophilic leukocytosis first noted January 2020, progressively worsening. He has no known chronic inflammatory or infectious diseases. BCR ABL profile with FISH is positive consistent with chronic myeloid leukemia. Bone marrow aspirate and biopsy March 2020 confirmed the diagnosis with a q BCR ABL positivity of 96.67% Started TKI therapy with dasatinib April 28, 2020, a decline in WBC/ANC is consistent with a hematologic response within the first month of treatment. Treatment is tolerated with no grade 3 or 4 toxicities. Mild elevation of liver enzymes less than 2 fold resolved and an increasing leukopenia with preserved neutrophil count noted at 4 weeks of treatment also resolved with continued standard do sing. He is showing a major molecular response (MMR) to treatment , see table below for summary of response: Date qBCR-ABL (e13a2/b2a2) 03/30/2020 159.1086 08/10/2020 0.3342 11/10/2020 0.017 02/08/2021 0.031 05/09/2021 0.0626 08/09/2021 0.0559 Comorbid conditions: smoker with over 30 pack years cigarettes (started at age 18 averaging 1/2 to 1 pack of cigarettes daily), hypertension, coronary artery disease, cerebrovascular disease and dyslipidemia. Plan: #1-Continue dasatinib standard dose and follow-up in 12 weeks. His pretreatment left ventricular ejection fraction normal at 55% March 2020. His EKG showed normal sinus rhythm with a normal QT/QTc 392/44 ms Hepatitis serologies showed no active chronic hepatitis #2-for occasional nausea continue to use ondansetron as needed. #3-Lung cancer screening : He is up-to-date, next CT of the chest to schedule for May 2022 . #4-Follow-up with CBC, CMP and Q. BCR/ABL in 3 months. Patient was seen , impression and plan discussed. Sawyer Delgado MD Transit Driver, [facility] Divisions of Medical Oncology Hematology Department of Internal Medicine [facility] [address] [address] This note was generated using a voice recognition system software. Although it was reviewed by the author prior to finalization, it may still contain incorrect words, spelling, and punctuation that were not noted when reviewing prior to saving. If a clinically significant typo or inaccurately typed phrase is noted, please notify the author. 08/23/21 1143 <Electronically signed by Sawyer Delgado MD> Date Sawyer Delgado MD Cosigner Signature: Date (if applicable) CC: Dr. Jocelin Saunders, DO Jocelin Saunders DO Work Phone: Start: 08-18-2021 End: 08-18-2021 Cardiology Visit Report Comments: See Note; NOTES: [facility] [address] [place] [address] [address] [place], [place] [id number] OFFICE VISIT Date of Service: 08/18/21 MR#: [id number] Acct: [id number] Name: FREDERIC OVALLES Rep #: [id number] : 1960 Provider: Dr. Hector Hsu MD Age/Sex: 61/M Location: [facility] Status: Signed HPI [facility] History of Present Illness Details: This is a 61-year-old gentleman that presents here today for a follow-up cardio oncology visit. He has a history of coronary artery disease with myocardial infarction in 2016 with 2 stents placed at that time.??? He had suffered a V. fib arrest. He had 2 stents placed, one was in the proximal left anterior descending artery and the other was in the mid right coronary artery.??? He also has a history of hypertension, hyperlipidemia.??? He has been diagnosed with chronic myeloid leukemia and has been on dasatinib which was started in April which she has tolerated well.??? His echocardiographic findings prior to this demonstrated an ejection fraction of 55% with a global longitudinal strain of 18.1. From a cardiac standpoint, patient is doing well.??? He does not have any chest discomfort/heaviness/tightness .??? His exercise tolerance is stable for his age.??? He does not have any worsening symptoms of shortness of breath. He does get SOB with exertional activity but it would be what he would expect. He denies any PND.??? He does not have any orthopnea.??? He does not have any symptoms of congestive heart failure.??? He does not have any palpitations that he is aware of.??? He does not have any lightheadedness or dizziness.??? He has had 2 episodes where he had near syncope. He did undergo a stress test in August 2018 where he exercised to a high metabolic workload.??? He did undergo some blood flow screening which demonstrated significant plaque in the right carotid artery. He does not have any lower extremity edema.??? He does not have any symptoms of claudication.??? His physical exam demonstrated clear lung osuna regular rate and rhythm and no pedal edema Intake Vital Signs 08/18/21 07:29 Height 6 ft Weight: 241 lb BP 132/87 H Respiration 16 Pulse 70 Pulse Oximetry (%) 95 Intake Visit Reasons: 8 mo f/u Allergies No Known Allergies Allergy (Verified 08/18/21 07:30) Medications aspirin 81 mg tablet,delayed release 81 mg PO DAILY 09/02/18 [History Confirmed 08/17/21] carvedilol 6.25 mg tablet 6.25 mg PO BID 09/02/18 [History Confirmed 08/17/21] cholecalciferol (vitamin D3) 25 mcg (1,000 unit) capsule 1,000 unit PO DAILY 09/02/18 [History Confirmed 08/17/21] ramipril 2.5 mg capsule 2.5 mg PO DAILY 09/02/18 [History Confirmed 08/17/21] atorvastatin 80 mg tablet 80 mg PO QHS tab 12/15/19 [History Confirmed 08/17/21] ascorbic acid (vitamin C) 1,000 mg PO DAILY 04/05/20 [History Confirmed 08/17/21] ondansetron HCl 8 mg PO Q8H PRN PRN #30 tab 05/05/20 [Rx Confirmed 08/17/21] omega 3-ypc-dwj-fish oil 1 cap PO DAILY 05/12/20 [History Confirmed 08/17/21] dasatinib 100 mg PO DAILY 07/13/20 [History Confirmed 08/17/21] vitamin E 200 unit PO DAILY 08/25/20 [History Confirmed 08/17/21] benzonatate [Tessalon Perles] 100 mg PO BID PRN #20 cap 03/18/21 [Rx Confirmed 08/17/21] doxycycline hyclate 100 mg PO BID #14 tab 03/18/21 [Rx Confirmed 08/17/21] Ejection fraction %: 55 to 59 PFSH Medical History Atherosclerosis of coronary artery of [place] heart without angina pectoris Encounter for screening for malignant neoplasm of lung in current smoker with 30 pack year history or greater Essential (primary) hypertension Fatigue Fracture of great toe, right, open Hiatal hernia with GERD History of back problems History of ST elevation myocardial infarction (STEMI) (01/20/17) Hyperlipidemia Leukocytosis Near syncope Nicotine dependence Obesity (BMI 30.0-34.9) 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) Pneumonia Tobacco use disorder, continuous Unspecified injury of right foot, sequela Surgical History History of bilateral inguinal hernia repair (08/2018) History of bone marrow biopsy (04/13/20) History of coronary artery stent placement (01/20/17) Status post laparoscopic Migue fundoplication (10/15/18) Family History Father Colon cancer Diabetes Heart disease Hypertension CAD (coronary artery disease) Sister Breast cancer Mother CAD (coronary artery disease) Hypertension Heart disease Social History household members: spouse Smoking Status: Current every day smoker tobacco type: cigarettes Tobacco: How many years used: 40 Electronic Cigarette Use: not used second hand exposure: No quit status: considering quitting counseling given: provider counseling alcohol intake: current alcohol intake frequency: a few times a week Alcohol type: beer substance use type: does not use well-balanced diet: about half the time uyen/latter-day: Latter Day seatbelt use: always do you feel safe at home: Yes ROS Const Const: Negative for fatigue, weakness, headache(s), frequent falls, difficulty sleeping or excessive sweating Eyes Eyes: Negative for loss of peripheral vision, transient loss of vision, blurry vision, double vision or tunnel vision ENT ENT: Negative for headache(s), dizziness, Nosebleed/epistaxis or balance problems Cardio Chest Pain: No Palpitations: No Edema: None Muscle aches with walking: None Additional Details: Has had episode of near syncope at rest, becomes lightheaded, diaphoretic. Resp Respiratory: Negative for SOB with activity, SOB at rest, SOB orthopnea SOB lying down, Cough or paroxysmal nocturnal dyspnea GI GI: Negative nausea, vomiting, heartburn or black,tarry stools : Negative for hematuria Musc Musc: Negative for muscle aches/ myalgia, muscle weakness, joint pain or balance problems Skin Skin: Negative non-healing lesions, rash or unusual bruising Neuro Neuro: Positive for near syncope and other (episodes at rest, becomes diaphoretic, weak. ); Negative for dizziness, lightheadedness, syncope, orthostatic symptoms, frequent falls, headache(s), weakness, blurry vision, double vision or lack of coordination Reynaldo Hematologic/Lymphatic: Negative for easy bleeding or easy bruising Endo Endo: Negative for fatigue, excessive sweating or increased thirst/drinking Psych Psych: Negative for anxiety or depression Allergy Allergy/Immunology: Negative for hives and Negative for rash Cardiology Exam Const Appearance: cooperative, healthy appearing, no acute distress, well developed and well groomed Nutritional Appearance: average body habitus and well nourished Orientation: alert, awake and oriented x3 Head Head: normal to inspection, normocephalic and atraumatic Ears: hearing grossly normal bilaterally and external ears normal Nose: external nose normal, nares normal, nasal mucous membranes and turbinates normal, septum normal and no nasal discharge Face and Sinus: face symmetric Mouth: oral mucosae normal, tongue normal, oropharynx normal and moist mucous membranes Teeth and gingiva: dentition normal Throat: posterior oropharynx normal, tonsils normal and uvula midline Eyes General: appearance normal, both eyes and all related structures Eyelids: eyelids normal Conjunctivae: conjunctivae normal Pupils: PERRL, normal by confrontation and accommodation normal EOM: EOM intact bilaterally Neck Neck: normal visual inspection, trachea midline and no JVD JVD: +5 Carotids: normal carotid upstroke and bounding pulses Chest Chest inspection: normal inspection of the chest, symmetric chest movement and normal respiratory effort Auscultation: Bilateral: Clear to Auscultation Cardio Palpation: normal PMI Rate: regular rate Rhythm: regular rhythm Heart sounds: S1 normal, S2 normal and normal, physiologic split S2; Negative rub, gallop or murmur GI GI: normal to inspection, soft, no hepatosplenomegaly and bowel sounds present Neuro General: patient alert, patient awake, patient oriented x3, gait normal, moves all extremities and no focal sensory deficit Skin Skin: no rashes or lesions noted Extremities Pulses: Normal: Right Femoral Pulse, Left Femoral Pulse, Right Dorsalis Pedis Pulse, Left Dorsalis Pedis Pulse, Right Posterior Tibial Pulse, Left Posterior Tibial Pulse, Right Radial Pulse and Left Radial Pulse Lower Extremity Edema: None: Bilateral Musculoskel Musculoskeletal: No joint tenderness Psych Psychological: normal affect Supplemental Info Supplemental Information Stress Test Report 12/28/2020 Exercise myocardial perfusion stress test. Stress protocol: Resting EKG demonstrates normal sinus rhythm with a rate of 65 bpm normal intervals are noted. Resting blood pressure is 102/72 mmHg. The patient exercised according to regular Gallito protocol for total duration of 9 minutes and 30 seconds. The maximum heart rate attained was 141 bpm which was 88% of maximum predicted heart rate the maximum workload was 10.7 metabolic equivalents. At rest there were no ST or T wave changes noted to suggest ischemia and at peak exercise upsloping ST changes were noted with did not meet the criteria for ischemia. No clinical angina was noted the test was terminated due to leg fatigue. The peak blood pressure was 160/68 mmHg with a rate pressure product of 21,700. Myocardial perfusion protocol. 14.7 mCi of technetium 99m sestamibi was injected at rest. The patient exercised according to regular Gallito protocol for total duration of 9-1/2 minutes. The maximum heart rate attained was 141 bpm. At peak exercise 44.6 mCi of technetium 99m sestamibi was injected at rest. Stress and rest images were reconstructed and compared in the short axis vertical long and horizontal long axis. Gated images were also obtained Perfusion SPECT analysis: Review of the stress images demonstrate normal cardiac silhouette size. There is minimal perfusion reduction noted in the distal anterior wall towards the apex noted on the stress images. The resting images demonstrate minimal perfusion defect, with no significant improvement to suggest ischemia. Previous small infarct in this area cannot be completely excluded. The rest of the chavez appear to be normally perfused. Gated SPECT analysis: The gated ejection fraction is 65%. Conclusion: Exercise myocardial perfusion stress test with no obvious ischemia noted. Previous small anterior infarct cannot be excluded. Preserved ejection fraction. Good functional capacity. ECHOCARDIOGRAM 04/20/2020 Interpretation Summary Normal LV size. Left ventricular systolic function is normal. The estimated ejection fraction is 55 %. The global longitudinal strain is normal. The global longitudinal strain = -18.1 % (normal). Contrast injection was performed. Carotid Duplex 09/04/2018 Interpretation Summary Mild (<50%) stenosis right extracranial internal carotid. No significant atherosclerotic plaque or stenosis noted in the left internal carotid artery. Flow within the vertebral arteries is antegrade bilaterally. Left Heart Catheterization/Coronary Intervention 01/20/2017 PROCEDURAL SUMMARY: Successful PCI to the mid LAD with a 4.0x20 Synergy EES Successful PCI to the mid RCA with a 4.0x16 Synergy EES, post-dilated using a 4.5 NC Euphora at high pressure Diagnostic angiogram revealed LMT without significant narrowing, large LAD with mild proximal diffuse disease, a focal severe mid LAD lesion (suspected recanalized culprit lesion for anterior STEMI) with mild diffuse disease distally, mild diffuse disease in the LCx, and the large dominant RCA had mild diffuse disease proximally before a hazy focal area which appeared to be ruptured plaque with thrombus in the mid RCA, followed by mild diffuse disease distally. Laboratory Tests 12/28/20 06:27 Triglycerides 159 Cholesterol 132 LDL Cholesterol 53 HDL Cholesterol 47 Labs: LDL Cholesterol 53 mg/dL (0-130) HDL Cholesterol 47 mg/dL (40-) Triglycerides 159 mg/dL (-199) VLDL Cholesterol 32 mg/dL (5-40) Diagnostics: Electrocardiogram Stress Test NM Stress Test Chest X-Ray Pulmonary: No Data to Display Assessment and Plan Assessment and Plan (1) Near syncope: Status: Acute Orders: Orders: Cardiac Holter Monitor, 24 Hrs 1 Week Carotid Duplex Ultrasound Today Plan - Dr. Hector Hsu MD: He did have an episode of near syncope. I would recommend that we obtain a formal carotid ultrasound to make sure that he does not have any significant abnormality there. A 24-hour Holter monitor would also be performed to exclude any arrhythmogenic etiology. (2) Chronic myeloid leukemia: Status: Chronic Plan - Dr. Hector Hsu MD: He appears to be quite stable with respect to the above. He remains on the dasatinib with good response and will continue to be followed by the oncology service (3) History of coronary artery stent placement: Status: Resolved Comment: PCI-NICA-Mid LAD 4.0 x 20 mm Synergy, NICA-Mid RCA w/ 4.0 x 16mm Synergy 01/20/2017 Plan - Dr. Hector Hsu MD: He is status post previous angioplasty and stenting of the LAD and right coronary artery and stress test performed in December 2020 demonstrated no evidence of ischemia at a high workload of 10.7 metabolic equivalents with evidence of an old small anterior infarct. He will continue with aggressive risk factor modification including his ramipril, carvedilol, aspirin. (4) Essential (primary) hypertension: Status: Chronic Plan - Dr. Hector Hsu MD: His blood pressure appears to be under good control on the current medical therapy I would not recommend we make any changes (5) Hyperlipidemia: Status: Chronic Qualifiers: Hyperlipidemia type: pure hypercholesterolemia Qualified Code(s): E78.00 - Pure hypercholesterolemia, unspecified; E78.0 - Pure hypercholesterolemia Orders: Orders: Lipid Profile 08/17/21 Liver Profile 08/17/21 Plan - Dr. Hector Hsu MD: His most recent lipid profile demonstrated total cholesterol 132, LDL 53, HDL of 47. No other changes will be made he would remain on his current dose of statin. Thank you for allowing me to participate in the care of your patient. Please don't hesitate to call if any issues arise. Plan Details Additional Comments: Portions of this documentation were copied and pasted from previous office visit notes to provide a cohesive continuity of the history. The note has been reviewed, edited, and updated, as necessary. 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) Coding Level of Care Code Off vis,est,level 4 Diagnoses Near syncope R55 Chronic myeloid leukemia C92.10 History of coronary artery stent placement Z95.5 Essential (primary) hypertension I10 Hyperlipidemia E78.00; E78.0 Hyperlipidemia type: pure hypercholesterolemia Coding Level of Care Code Off vis,est,level 4 Diagnoses Near syncope R55 Chronic myeloid leukemia C92.10 History of coronary artery stent placement Z95.5 Essential (primary) hypertension I10 Hyperlipidemia E78.00; E78.0 Hyperlipidemia type: pure hypercholesterolemia 08/18/21 1112 <Electronically signed by Hector Hsu MD> Date Hector Hsu MD Cosigner Signature: Date (if applicable) CC: Dr. Jocelin Saunders, DO Jocelin Saunders DO Work Phone: Start: 05-30-2021 End: 05-30-[address] Lung Screening Comments: See Note; NOTES: [facility] Services [address] [place] [id number] Lung Screening MR#: [id number] Acct: [id number] Name: FREDERIC OVALLES Rep #: [id number] : 1960 M 60 From: Jeovanny medeiros MD PCP: Dr. Jocelin Saunders, Status: [facility] Study: Low Dose CT Lung Screening Date of Exam: 05/30 Exam# [id number] Ordering Dr: Savi Rodriguez NP FERMENTER HELPER -C STUDY: LOW DOSE CT LUNG CANCER SCREENING REASON FOR EXAM: Male, 60 years old. Lung cancer screening -- and gt;30 pk yr history; current smoker; asymptomatic RADIATION DOSAGE (If Supplied By Facility): CTDIvol = ( 4.02 ) mGy, DLP = ( 140.94 ) mGycm TECHNIQUE: No contrast was administered. Low dose technique was utilized (average mAS-38 and kVp 120). 1.25 mm axial source images with a slice interval of 1.25-mm were reconstructed in lung windows. 2.5 mm axial source images with a slice interval of 2.5-mm were reconstructed in lung windows. 5.0 mm axial source images with a slice interval of 5.0-mm were reconstructed in soft tissue windows. Nodule measured using lung windows on PACS and/or independent workstation with automated measurement of minimum and maximum diameter. Nodule measurement reported as average diameter rounded to the nearest whole number. Growth is defined as an increase ins size of greater than 1.5 mm. COMPARISON: Comparison is made with prior study 05/17/2020. NODULES: No suspicious nodules are seen. Emphysema: Stable apical scarring at both lung apices more prominent on the right side. Mild degree of scarring at the lung bases. Endobronchial lesion: None Aorta: Minimal atherosclerotic plaques of the aortic arch. Coronary arteries: Coronary artery stenting is seen. Heart: Unremarkable Mediastinal nodes: Small mediastinal lymph nodes are seen. Other chest and abdominal findings: CT/Low Dose CT Lung Screening IMPRESSION: Lung-RADS category 2 - Continue annual screening with LDCT in 12 months. IMPORTANT NOTES FOR USE: ACR Lung-RADS Version 1.1 Assessment Categories Release Date: 2018 Category: Coded 0-4 bases on nodule(s) with highest degree of suspicion. Negative screen is defined as categories 1 and 2; a positive screen is defined as categories 3 and 4. Category 3 and 4A nodules that are unchanged on interval CT should be coded as category 2, and individuals returned to screening in 12 months. Category 4X: Category 3 or 4 nodules with additional imaging findings that increase the suspicion of lung cancer, such as spiculation, GGN that doubles in size in 1 year, enlarged lymph notes, etc. Category Modifiers: S (significant finding unrelated to lung cancer) Electronically Signed: Jeovanny Swan MD at 14:18 EST , Service support , CC: SELVIN Rodriguez; Dr. Jocelin Saunders DO Wool Supplier: Signed Jocelin Saunders DO Work Phone: Start: 05-30-2021 End: 05-30-2021 Oncology Visit Report Comments: See Note; NOTES: [facility] [address] [place] [address] [id number] OFFICE VISIT Date of Service: 05/30/21 1255 MR#: [id number] Acct: [id number] Name: FREDERIC OVALLES Rep #: [id number] : 1960 From: Savi Rodriguez NP FERMENTER HELPER -C Age/Sex: 60/M Location[place] [facility] Status: Signed HPI HPI Reviewed eligibility criteria: 60 year old M with a > 30 pack year smoking history. Smoking Status: Current every day smoker 1/2 ppd Decision Making Engaged in shared decision making visit utilizing a visual aid. Discussed the risks and benefits of lung cancer screening including the total radiation exposure, false positive rate, over diagnosis and potential need for follow-up diagnostic testing all associated with low-dose chest CT. Comorbidities CML, CAD, HTN ROS Const Denies anorexia, Denies fatigue, Denies headache(s), Denies poor appetite and Denies weight loss ENT Denies headache(s) Card Denies chest pain, Reports dyspnea on exertion and Denies palpitations Resp Reports cough, Reports dyspnea on exertion, Denies hemoptysis and Denies wheezing GI Reports system reviewed and no additional complaints, except as documented Reports system reviewed and no additional complaints, except as documented Musc Reports system reviewed and no additional complaints, except as documented Skin/Breast Reports system reviewed and no additional complaints, except as documented Neuro Yes system reviewed and no additional complaints, except as documented and No headache(s) Psych Reports system reviewed and no additional complaints, except as documented Endo Reports system reviewed and no additional complaints, except as documented, Denies fatigue and Denies palpitations Reynaldo/Lymph Reports system reviewed and no additional complaints, except as documented Aller/Immun Denies wheezing Exam Const General: healthy appearing, well developed and not in acute distress Orientation: alert, awake and oriented x3 HENMT Head: normocephalic and atraumatic Neck Neck: trachea midline, supple and no lymphadenopathy noted Resp Effort Inspection: normal respiratory effort and symmetric chest movement Auscultation: Bilateral: Clear to Auscultation and Diminished Lung Sounds Cardio Rate: regular rate Rhythm: regular rhythm Heart Sounds: S1 normal and S2 normal Psych Mood: euthymic mood Results Results 05/30/[address] Lung Screening IMPRESSION: Lung-RADS category 2 - Continue annual screening with LDCT in 12 months. Intake Vital Signs 05/30/21 12:57 Height 6 ft Weight: 238 lb 3 oz BMI 32.3 BP 115/68 Blood Pressure Location Rt brachial Position Sitting Respiration 18 Pulse 73 Pulse Source Monitor Temp 98.9 F Temp Source Temporal Pulse Oximetry (%) 97 Oxygen Delivery Method room air Intake Visit Reasons: Lung cancer screening Is patient in pain?: No Allergies No Known Allergies Allergy (Verified 05/30/21 12:57) Medications aspirin 81 mg tablet,delayed release 81 mg PO DAILY 09/02/18 [History Confirmed 05/30/21] carvedilol 6.25 mg tablet 6.25 mg PO BID 09/02/18 [History Confirmed 05/30/21] cholecalciferol (vitamin D3) 25 mcg (1,000 unit) capsule 1,000 unit PO DAILY 09/02/18 [History Confirmed 05/30/21] ramipril 2.5 mg capsule 2.5 mg PO DAILY 09/02/18 [History Confirmed 05/30/21] atorvastatin 80 mg tablet 80 mg PO QHS tab 12/15/19 [History Confirmed 05/30/21] ascorbic acid (vitamin C) 1,000 mg PO DAILY 04/05/20 [History Confirmed 05/30/21] ondansetron HCl 8 mg PO Q8H PRN PRN #30 tab 05/05/20 [Rx Confirmed 05/30/21] omega 3-ssk-cum-fish oil 1 cap PO DAILY 05/12/20 [History Confirmed 05/30/21] dasatinib 100 mg PO DAILY 07/13/20 [History Confirmed 05/30/21] vitamin E 200 unit PO DAILY 08/25/20 [History Confirmed 05/30/21] benzonatate [Tessalon Perles] 100 mg PO BID PRN #20 cap 03/18/21 [Rx Confirmed 05/30/21] doxycycline hyclate 100 mg PO BID #14 tab 03/18/21 [Rx Confirmed 05/30/21] PFSH Medical History (Updated 05/30/21 @ 13:14 by Savi Rodriguez NP, FERMENTER HELPER-C) Atherosclerosis of coronary artery of [place] heart without angina pectoris Encounter for screening for malignant neoplasm of lung in current smoker with 30 pack year history or greater Essential (primary) hypertension Fatigue Fracture of great toe, right, open Hiatal hernia with GERD History of back problems History of ST elevation myocardial infarction (STEMI) (01/2017) Hyperlipidemia Leukocytosis Near syncope Nicotine dependence Obesity (BMI 30.0-34.9) Old anterior wall myocardial infarction Tobacco use disorder, continuous Unspecified injury of right foot, sequela Surgical History History of bilateral inguinal hernia repair (08/2018) History of bone marrow biopsy (04/13/20) History of coronary artery stent placement (01/2017) Status post laparoscopic Migue fundoplication (10/15/18) Family History Father Colon cancer Diabetes Heart disease Hypertension CAD (coronary artery disease) Sister Breast cancer Mother CAD (coronary artery disease) Hypertension Heart disease Social History (Updated 05/30/21 @ 12:57 by Ritu Harris) household members: spouse Smoking Status: Current every day smoker tobacco type: cigarettes Tobacco: How many years used: 40 Electronic Cigarette Use: not used second hand exposure: No quit status: considering quitting counseling given: provider counseling alcohol intake: current alcohol intake frequency: a few times a week Alcohol type: beer substance use type: does not use well-balanced diet: about half the time uyen/latter-day: Latter Day seatbelt use: always do you feel safe at home: Yes Assessment and Plan (No Qualifiers) Assessment and Plan (1) Encounter for screening for malignant neoplasm of lung in current smoker with 30 pack year history or greater: Status: Acute Plan - Savi Rodriguez NP, FERMENTER HELPER-C: 1. Per LUNG RADS category 2 a low-dose CT chest scan is recommended in 12 months. Patient is made aware images are subject to multidisciplinary review and if alternate recommendations for screening are advised, he/she will be contacted via phone. 2. Other findings: emphysema and coronary artery calcifications. These are not new findings. Advise routine follow-up with his PCP and resistor coater. (2) Tobacco use disorder, continuous: Status: Acute Plan - Savi Rodriguez NP, FERMENTER HELPER-C: A 11 minute, face to face discussion occurred with the patient regarding smoking cessation. Risks of continued tobacco abuse was covered such as heart disease, stroke, cancer, and emphysema, among others. The many health benefits quitting, was discussed and the patient was educated on the fact that smokers lose an average of 10 minutes of life for every cigarette smoked. We discussed the pathophysiology of smoking addiction and its dual addictive components of nicotine addiction and psychological addiction. Nicotine replacement was discussed. We also talked about medications that may be helpful such as Bupropion (Wellbutrin) or Varenicline (Chantix). Advise was also offered on preoccupying the mind d uring trigger times with activities such as chewing gum, sucking on hard candy or utilizing their hands with an activity such as drawing. Currently the patient is smoking [] ppd. At this time, FREDERIC is in the precontemplation phase. Declined referral to [facility] tobacco cessation program. 05/30/211721 <Electronically signed by Savi Rodriguez NP FERMENTER HELPER-C> Date Savi MONTALVO Cosigner Signature: Date (if applicable) CC: Dr. Jocelin Saunders, DO Jocelin Saunders DO Work Phone: Start: 05-23-2021 End: 05-23-2021 Oncology Visit Report Comments: See Note; NOTES: [facility] [place] [address] OFFICE VISIT Date of Service: 05/23/21 1419 MR#: [id number] Acct: [id number] Name: FREDERIC OVALLES Rep #: [id number] : 1960 From: Sawyer Delgado MD Age/Sex: 60/M Location: [facility] [place] Status: Signed HPI Subjective Date of Service 05/23/21 Chief Complaint Chronic myeloid leukemia on treatment History of Present Illness 60-year-old gentleman with no known chronic inflammatory or infectious diseases referred in consultation because of a persistent leukocytosis. March 2020 peripheral blood BCR ABL by FISH was positive consistent with chronic myeloid leukemia. Bone marrow aspirate and biopsy April 13, 2020: BONE MARROW DIAGNOSIS Bone marrow biopsy, clot and aspiration (specimens A-C): Hypercellular bone marrow. No stainable iron identified. No evidence of lymphoproliferative disorder. See comment. COMMENT Flow cytometry analysis reveals no increased blasts population. However, myeloid elements exhibit aberrant expression of CD56 and show left shift with down-regulation of CD10 and CD16. The findings are compatible with an underlying primary myeloid neoplasm. The flow cytometry analysis report from [facility] is reviewable in the patient???s EMR. BONE MARROW STUDY Slides are reviewed. CBC DATE: 04/13/20 WBC 22.5; RBC 5.33; HGB 15.8; HCT 48.5; MCV 91.0; RDW 48.2; PLTS 206,000 SEGS 54%; LYMPHS 23%; MONOS 11%; EOS 2%; BASOS 0% PERIPHERAL SMEAR: Submitted. RBC: Normochromic, normomorphic WBC: Neutrophilic leukocytosis with slight left shift. PLTS: Normomorphic BONE MARROW ASPIRATE DIFFERENTIAL: 200 cell count. Blasts % (normal 0-2): 2 Promyelocytes % (normal 1-5): 5 Myelocytes and metamyelocytes % (normal 17-41): 38 Bands and Segs % (normal 15-32): 26 Eos % (normal 1-6): 2 Basos % (normal 0-1): 0 Monocytes % (normal 0-4): 2 Erythroid Precursors % (normal 17-35): 18 Lymphocytes % (normal 7-13): 7 Plasma Cells % (normal 0-2): 0 ASPIRATE FINDINGS: Site: Not specified Paucispicular Cellular M/E ratio: Within normal limits (Normal 1.5 - 4.0) Megakaryocytes: Adequate Erythropoiesis: Progressive Granulopoiesis: Normoblastic CORE BIOPSY FINDINGS: Site: Not specified Adequacy: No bone present Cellularity %: Not applicable M/E ratio: Not applicable Blood Only rare marrow cell noted. ASPIRATE CLOT FINDINGS: Site: Not specified Marrow Particles: Many Cellularity %: 80% M/E ratio: Within normal limits Megakaryocytes: Adequate Granuloma(s): 0 Lymphoid aggregate(s): 0 Atypical infiltrate(s): 0 SPECIAL STAINS (with matched controls): Iron: Stainable iron not present Reticulin: Within normal limits PAS: Highlights myeloid elements and megakaryocytes. ADDENDUM FISH BCR/ABL1 REPORT FROM [facility] INTERPRETATION: BCR/ABL gene rearrangement is detected. RESULTS: BCR/ABL1 Normal Nuclei Positive Nuclei with Dual Fusion 3.33% 96.67% CYTOGENETICS REPORT FROM [facility] INTERPRETATION: Abnormal male karyotype was observed in twenty metaphases analyzed. 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] Treatment: Dasatinib 100 mg daily April 28, 2020- [facility] Medical History Atherosclerosis of coronary artery of [place] heart without angina pectoris Essential (primary) hypertension Fatigue Fracture of great toe, right, open Hiatal hernia with GERD History of back problems History of ST elevation myocardial infarction (STEMI) (01/2017) Hyperlipidemia Leukocytosis Near syncope Nicotine dependence Obesity (BMI 30.0-34.9) Old anterior wall myocardial infarction Unspecified injury of right foot, sequela Surgical History History of bilateral inguinal hernia repair (08/2018) History of bone marrow biopsy (04/13/20) History of coronary artery stent placement (01/2017) Status post laparoscopic Migue fundoplication (10/15/18) Family History Father Colon cancer Diabetes Heart disease Hypertension CAD (coronary artery disease) Sister Breast cancer Mother CAD (coronary artery disease) Hypertension Heart disease Social History household members: spouse Smoking Status: Current some day smoker tobacco type: cigarettes Tobacco: How many years used: 40 Electronic Cigarette Use: not used second hand exposure: No alcohol intake: current alcohol intake frequency: a few times a week Alcohol type: beer substance use type: does not use well-balanced diet: about half the time uyen/latter-day: Latter Day seatbelt use: always do you feel safe at home: Yes ROS Constitutional Constitutional: Reports systems reviewed and no addt'l complaints, except as documented; Denies fatigue, fever(s) or weight loss Eyes Eyes: Reports systems reviewed and no addt'l complaints, except as documented ENT HEENT: Reports systems reviewed and no addt'l complaints, except as documented; Denies headache(s), mouth lesions or mucositis Cardiovascular Cardiovascular: Reports systems reviewed and no addt'l complaints, except as documented; Denies chest pain with activity or edema Respiratory/Chest Respiratory/Chest: Reports systems reviewed and no addt'l complaints, except as documented; Denies cough or dyspnea on exertion Gastrointestinal Gastrointestinal: Reports systems reviewed and no addt'l complaints, except as documented; Denies change in bowel habits, diarrhea or nausea Genitourinary Genitourinary: Reports systems reviewed and no addt'l complaints, except as documented; Denies dysuria Musculoskeletal Musculoskeletal: Reports systems reviewed and no addt'l complaints, except as documented, back pain and other Details: Chronic back pain unchanged Integumentary Integumentary: Reports systems reviewed and no addt'l complaints, except as documented, dry skin, rash and other Details: None itchy rash on upper arms Neurologic Neurologic: Reports systems reviewed and no addt'l complaints, except as documented; Denies headache(s) or weakness Psychiatric Psychiatric: Reports systems reviewed and no addt'l complaints, except as documented Endocrine Endocrinology: Reports systems reviewed and no addt'l complaints, except as documented Hematologic/Lymphatic Hematologic/Lymphatic: Reports systems reviewed and no addt'l complaints, except as documented; Denies easy bleeding or easy bruising Allergic/Immunologic Allergic/Immunologic: Reports systems reviewed and no addt'l complaints, except as documented Intake Vital Signs 05/23/21 14:19 Height 6 ft Weight: 108.182 kg BMI 32.3 BP 132/77 H Blood Pressure Location Rt brachial Position Sitting Respiration 16 Pulse 74 Pulse Source Monitor Temp 98.6 F Temperature Source Temporal Artery Pulse Oximetry (%) 96 Oxygen Delivery Method simple mask Intake Price Accuracy Supervisor Required: No Accompanied by: Self Is patient in pain?: Yes (lower back left side going down leg to toes) Pain scale (1-10): 8 Allergies No Known Allergies Allergy (Verified 05/23/21 14:29) Medications aspirin 81 mg tablet,delayed release 81 mg PO DAILY 09/02/18 [History Confirmed 05/23/21] carvedilol 6.25 mg tablet 6.25 mg PO BID 09/02/18 [History Confirmed 05/23/21] cholecalciferol (vitamin D3) 25 mcg (1,000 unit) capsule 1,000 unit PO DAILY 09/02/18 [History Confirmed 05/23/21] ramipril 2.5 mg capsule 2.5 mg PO DAILY 09/02/18 [History Confirmed 05/23/21] atorvastatin 80 mg tablet 80 mg PO QHS tab 12/15/19 [History Confirmed 05/23/21] ascorbic acid (vitamin C) 1,000 mg PO DAILY 04/05/20 [History Confirmed 05/23/21] ondansetron HCl 8 mg PO Q8H PRN PRN #30 tab 05/05/20 [Rx Confirmed 05/23/21] omega 0-tpj-ogs-fish oil 1 cap PO DAILY 05/12/20 [History Confirmed 05/23/21] dasatinib 100 mg PO DAILY 07/13/20 [History Confirmed 05/23/21] vitamin E 200 unit PO DAILY 08/25/20 [History Confirmed 05/23/21] benzonatate [Tessalon Perles] 100 mg PO BID PRN #20 cap 03/18/21 [Rx Confirmed 05/23/21] doxycycline hyclate 100 mg PO BID #14 tab 03/18/21 [Rx Confirmed 05/23/21] Central Venous Access Central Venous Access: No Exam Physical Exam Const alert and oriented x3 Constitutional Narrative: ECOG 0-1 General Appearance: cooperative Nutritional Appearance: overweight HEENT normocephalic Head and Scalp: normal to inspection Mouth: oral and palatal mucosa normal Eyes conjunctivae normal and no scleral icterus General Eye: normal appearance of both eyes Neck no lymphadenopathy and no JVD Lymph Lymphatic: no lymphadenopathy noted Chest Chest: symmetrical chest wall rise Resp normal respiratory effort and clear to auscultation bilaterally Cardio regular rate, regular rhythm, S1 normal heart sound, S2 normal heart sound and no murmurs Jugular Venous Distention: Negative for JVD GI soft to palpation, non-tender and non-distended; Negative for hepatosplenomegaly no CVA tenderness Back/Spine no thoracic nor lumbar tenderness Extremity no clubbing, cyanosis or edema Skin no rashes or lesions noted Neuro oriented x3, CN's II-XII intact bilaterally, moves all extremities and no focal motor deficits Coordination / Balance: [id number] test normal Speech: speech normal Gait (Neuro): normal gait Psych mental status grossly normal Coding Level of Care Code Off vis,est,level 4 Diagnoses Chronic myeloid leukemia C92.10 Assessment and Plan Assessment and Plan (1) Chronic myeloid leukemia: Status: Chronic Plan - Dr. Sawyer Delgado MD: 60-year-old male who presented with with a mature neutrophilic leukocytosis first noted January 2020, progressively worsening. He has no known chronic inflammatory or infectious diseases. BCR ABL profile with FISH is positive consistent with chronic myeloid leukemia. Bone marrow aspirate and biopsy March 2020 confirmed the diagnosis with a q BCR ABL positivity of 96.67% Started TKI therapy with dasatinib April 28, 2020, a decline in WBC/ANC is consistent with a hematologic response within the first month of treatment. Treatment is tolerated with no grade 3 or 4 toxicities. Mild elevation of liver enzymes less than 2 fold resolved and an increasing leukopenia with preserved neutrophil count noted at 4 weeks of treatment also resolved with continued standard d osing. He is showing a major molecular response to treatment , see table below for summary of response: Date qBCR-ABL (e13a2/b2a2) 03/30/2020 159.1086 08/10/2020 0.3342 11/10/2020 0.017 02/08/2021 0.031 05/09/2021 0.0626 Comorbid conditions: smoker with over 30 pack years cigarettes (started at age 18 averaging 1/2 to 1 pack of cigarettes daily), hypertension, coronary artery disease and dyslipidemia. Plan: #1-Continue dasatinib standard dose and follow-up in 12 weeks. His pretreatment left ventricular ejection fraction normal at 55% March 2020. His EKG showed normal sinus rhythm with a normal QT/QTc 392/44 ms Hepatitis serologies showed no active chronic hepatitis #2-for occasional nausea continue to use ondansetron as needed. #3-Lung cancer screening : CT of the chest to schedule for 2020 . #4-Follow-up with CBC, CMP and Q. BCR/ABL in 3 months. Patient was seen , impression and plan discussed. Sawyer Delgado MD Transit Driver, [facility] Divisions of Medical Oncology Hematology Department of Internal Medicine [place] [id number] This note was generated using a voice recognition system software. Although it was reviewed by the author prior to finalization, it may still contain incorrect words, spelling, and punctuation that were not noted when reviewing prior to saving. If a clinically significant typo or inaccurately typed phrase is noted, please notify the author. 05/23/21 1454 <Electronically signed by Sawyer Delgado MD> Date Sawyer Delgado MD Cosigner Signature: Date (if applicable) CC: Dr. Jocelin Saunders, DO Jocelin Saunders DO Work Phone: Start: 04-03-2021 End: 04-03-2021 Oncology Visit Report Comments: See Note; NOTES: [facility] [place] [address] OFFICE VISIT Date of Service: 04/03/21 1055 MR#: [id number] Acct: [id number] Name: FREDERIC OVALLES Rep #: [id number] : 1960 From: Savi Rodriguez NP FERMENTER HELPER -C Age/Sex: 60/M [place] [facility] [place] Status: Signed HPI Subjective Date of Service 04/03/21 Chief Complaint Chronic myeloid leukemia on treatment History of Present Illness 60-year-old gentleman with no known chronic inflammatory or infectious diseases referred in consultation because of a persistent leukocytosis. March 2020 peripheral blood BCR ABL by FISH was positive consistent with chronic myeloid leukemia. Bone marrow aspirate and biopsy April 13, 2020: BONE MARROW DIAGNOSIS Bone marrow biopsy, clot and aspiration (specimens A-C): Hypercellular bone marrow. No stainable iron identified. No evidence of lymphoproliferative disorder. See comment. COMMENT Flow cytometry analysis reveals no increased blasts population. However, myeloid elements exhibit aberrant expression of CD56 and show left shift with down-regulation of CD10 and CD16. The findings are compatible with an underlying primary myeloid neoplasm. The flow cytometry analysis report from [facility] is reviewable in the patient???s EMR. BONE MARROW STUDY Slides are reviewed. CBC DATE: 04/13/20 WBC 22.5; RBC 5.33; HGB 15.8; HCT 48.5; MCV 91.0; RDW 48.2; PLTS 206,000 SEGS 54%; LYMPHS 23%; MONOS 11%; EOS 2%; BASOS 0% PERIPHERAL SMEAR: Submitted. RBC: Normochromic, normomorphic WBC: Neutrophilic leukocytosis with slight left shift. PLTS: Normomorphic BONE MARROW ASPIRATE DIFFERENTIAL: 200 cell count. Blasts % (normal 0-2): 2 Promyelocytes % (normal 1-5): 5 Myelocytes and metamyelocytes % (normal 17-41): 38 Bands and Segs % (normal 15-32): 26 Eos % (normal 1-6): 2 Basos % (normal 0-1): 0 Monocytes % (normal 0-4): 2 Erythroid Precursors % (normal 17-35): 18 Lymphocytes % (normal 7-13): 7 Plasma Cells % (normal 0-2): 0 ASPIRATE FINDINGS: Site: Not specified Paucispicular Cellular M/E ratio: Within normal limits (Normal 1.5 - 4.0) Megakaryocytes: Adequate Erythropoiesis: Progressive Granulopoiesis: Normoblastic CORE BIOPSY FINDINGS: Site: Not specified Adequacy: No bone present Cellularity %: Not applicable M/E ratio: Not applicable Blood Only rare marrow cell noted. ASPIRATE CLOT FINDINGS: Site: Not specified Marrow Particles: Many Cellularity %: 80% M/E ratio: Within normal limits Megakaryocytes: Adequate Granuloma(s): 0 Lymphoid aggregate(s): 0 Atypical infiltrate(s): 0 SPECIAL STAINS (with matched controls): Iron: Stainable iron not present Reticulin: Within normal limits PAS: Highlights myeloid elements and megakaryocytes. ADDENDUM FISH BCR/ABL1 REPORT FROM [facility] INTERPRETATION: BCR/ABL gene rearrangement is detected. RESULTS: BCR/ABL1 Normal Nuclei Positive Nuclei with Dual Fusion 3.33% 96.67% CYTOGENETICS REPORT FROM [facility] INTERPRETATION: Abnormal male karyotype was observed in twenty metaphases analyzed. 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 He presented to [facility] ED with CP on 03/17/21. CP found to be pleuritic, WBC 13 but ? RLL infiltrate.COVID rapid negative. Discharged home with Rx for doxycycline. States completed antibiotic therapy as advised. Vastly improved however admits to continuation of infrequent nonproductive cough. Patient was encouraged to follow up with oncology d/t mild leukocytosis. Reports good tolerance and good adherence with dasatinib. [facility] Medical History Atherosclerosis of coronary artery of [place] heart without angina pectoris Essential (primary) hypertension Fatigue Fracture of great toe, right, open Hiatal hernia with GERD History of back problems History of ST elevation myocardial infarction (STEMI) (01/2017) Hyperlipidemia Leukocytosis Near syncope Nicotine dependence Obesity (BMI 30.0-34.9) Old anterior wall myocardial infarction Unspecified injury of right foot, sequela Surgical History History of bilateral inguinal hernia repair (08/2018) History of bone marrow biopsy (04/13/20) History of coronary artery stent placement (01/2017) Status post laparoscopic Migue fundoplication (10/15/18) Family History Father Colon cancer Diabetes Heart disease Hypertension CAD (coronary artery disease) Sister Breast cancer Mother CAD (coronary artery disease) Hypertension Heart disease Social History household members: spouse Smoking Status: Current some day smoker tobacco type: cigarettes Tobacco: How many years used: 40 Electronic Cigarette Use: not used second hand exposure: No alcohol intake: current alcohol intake frequency: a few times a week Alcohol type: beer substance use type: does not use well-balanced diet: about half the time uyen/latter-day: Latter Day seatbelt use: always do you feel safe at home: Yes ROS ROS Narrative Negative except as documented in the interval HPI Intake Vital Signs 04/03/21 10:55 Height 6 ft Weight: 233 lb 8 oz BMI 31.6 BP 113/69 Blood Pressure Location Rt brachial Position Sitting Respiration 16 Pulse 66 Pulse Source Monitor Temp 98.6 F Temperature Source Temporal Artery Pulse Oximetry (%) 95 Oxygen Delivery Method room air Intake Price Accuracy Supervisor Required: No Accompanied by: Self Is patient in pain?: Yes (cough starated --) Pain scale (1-10): 9 Allergies No Known Allergies Allergy (Verified 04/03/21 11:04) Medications aspirin 81 mg tablet,delayed release 81 mg PO DAILY 09/02/18 [History Confirmed 04/03/21] carvedilol 6.25 mg tablet 6.25 mg PO BID 09/02/18 [History Confirmed 04/03/21] cholecalciferol (vitamin D3) 25 mcg (1,000 unit) capsule 1,000 unit PO DAILY 09/02/18 [History Confirmed 04/03/21] ramipril 2.5 mg capsule 2.5 mg PO DAILY 09/02/18 [History Confirmed 04/03/21] atorvastatin 80 mg tablet 80 mg PO QHS tab 12/15/19 [History Confirmed 04/03/21] ascorbic acid (vitamin C) 1,000 mg PO DAILY 04/05/20 [History Confirmed 04/03/21] ondansetron HCl 8 mg PO Q8H PRN PRN #30 tab 05/05/20 [Rx Confirmed 04/03/21] omega 4-yks-wql-fish oil 1 cap PO DAILY 05/12/20 [History Confirmed 04/03/21] dasatinib 100 mg PO DAILY 07/13/20 [History Confirmed 04/03/21] vitamin E 200 unit PO DAILY 08/25/20 [History Confirmed 04/03/21] benzonatate [Tessalon Perles] 100 mg PO BID PRN #20 cap 03/18/21 [Rx Confirmed 04/03/21] doxycycline hyclate 100 mg PO BID #14 tab 03/18/21 [Rx Confirmed 04/03/21] Central Venous Access Central Venous Access: No Laboratory Tests 04/03/21 10:37 WBC 6.3 Hgb 14.3 Plt Count 251 Absolute Neuts (auto) 3.2 Exam Physical Exam Const alert Constitutional Narrative: ECOG 0-1 Nutritional Appearance: overweight HEENT normocephalic Mouth: oral and palatal mucosa normal Eyes conjunctivae normal and no scleral icterus Conjunctiva: conjunctiva normal Sclera: sclera normal Neck no lymphadenopathy and no JVD Lymph Lymphatic: no lymphadenopathy noted Chest Chest: symmetrical chest wall rise Resp normal respiratory effort and clear to auscultation bilaterally Effort and Inspection: able to speak in complete sentences Cardio regular rate, regular rhythm, S1 normal heart sound and S2 normal heart sound Jugular Venous Distention: Negative for JVD GI soft to palpation, non-tender and non-distended; Negative for hepatosplenomegaly Extremity no clubbing, cyanosis or edema Psych Attitude: calm and engaged Coding Level of Care Code Off vis,est,level 4 Diagnoses Chronic myeloid leukemia C92.10 Assessment and Plan Assessment and Plan (1) Chronic myeloid leukemia: Status: Chronic Plan - Savi Rodriguez FERMENTER HELPER, FERMENTER HELPER-C: 60-year-old male who presented with with a mature neutrophilic leukocytosis first noted January 2020, progressively worsening. He has no known chronic inflammatory or infectious diseases. BCR ABL profile with FISH is positive consistent with chronic myeloid leukemia. Bone marrow aspirate and biopsy March 2020 confirmed the diagnosis with a q BCR ABL positivity of 96.67% Started TKI therapy with dasatinib April 28, 2020, a decline in WBC/ANC is consistent with a hematologic response within the first month of treatment. Treatment is tolerated with no grade 3 or 4 toxicities. Mild elevation of liver enzymes less than 2 fold resolved and an increasing leukopenia with preserved neutrophil count noted at 4 weeks of treatment also resolved with continued standard dosing. He is showing a response to treatment with a significant decline in quantitative BCR ABL by PCR, see table below for summary of response: Date qBCR-ABL (e13a2/b2a2) 03/30/2020 159.1086 08/10/2020 0.3342 11/10/2020 0.017 02/08/2021 0.031 Comorbid conditions: smoker with over 30 pack years cigarettes (started at age 18 averaging 1/2 to 1 pack of cigarettes daily), hypertension, coronary artery disease and dyslipidemia. Plan: #1- Leukocytosis was secondary to infectious process last month as WBC normalized. Continue dasatinib standard dose and follow-up ion 05/23/21 as previously planned, CBC, CMP and Q. BCR/ABL prior. #2- Keep SDMV and LDCT chest scheduled for 05/23/21. 04/03/21 1145 <Electronically signed by Savi MONTALVO> Date Savi CASHC Cosigner Signature: Date (if applicable) CC: DO Jocelin Wiseman DO Work Phone: Start: 03-17-2021 End: 03-18-2021 Emergency Department Summary Comments: See Note; NOTES: [facility] Medical Records Department [address] [place] [id number] Emergency Department Summary 03/17/21 MR#: [id number] Acct: [id number] Name: FREDERIC OVALLES Rep #: [id number] : 1960 60 From: Edwina Meeks DO PCP: Dr. Jocelin Saunders DO Status:REG ER Location: ED HPI History of Present Illness Chief Complaint: Chest Pain Informant: patient Narrative Narrative: Patient is a 60-year-old male presenting from home for chest pain and cough. He describes the pain as burning in nature. It is worse when he takes a deep breath. It started last night has been constant. It feels like when he had pneumonia before. He does have some mild associated nausea. Denies any vomiting or change in bowel habits. No urinary symptoms. No fever. No nasal congestion or runny nose. Patient has had his Covid vaccine. He does not wear home oxygen and does not have any history of sleep apnea. He does have a history of chronic myeloid leukemia as well as coronary artery disease status post stents. [facility] Medical History (Updated 03/18/21 @ 01:[address] Edwina Meeks DO) Atherosclerosis of coronary artery of [place] heart without angina pectoris Essential (primary) hypertension Fatigue Fracture of great toe, right, open Hiatal hernia with GERD History of back problems History of ST elevation myocardial infarction (STEMI) (01/2017) Hyperlipidemia Leukocytosis Near syncope Nicotine dependence Obesity (BMI 30.0-34.9) Old anterior wall myocardial infarction Unspecified injury of right foot, sequela Home Medications aspirin 81 mg tablet,delayed release 81 mg PO DAILY 09/02/18 [History Last Taken 04/12/20] carvedilol 6.25 mg tablet 6.25 mg PO BID 09/02/18 [History Last Taken 04/12/20] cholecalciferol (vitamin D3) 25 mcg (1,000 unit) capsule 1,000 unit PO DAILY 09/02/18 [History Last Taken 04/12/20] ramipril 2.5 mg capsule 2.5 mg PO DAILY 09/02/18 [History Last Taken 04/12/20] atorvastatin 80 mg tablet 80 mg PO QHS tab 12/15/19 [History Last Taken 04/12/20] ascorbic acid (vitamin C) 1,000 mg PO DAILY 04/05/20 [History Last Taken 04/12/20] ondansetron HCl 8 mg PO Q8H PRN PRN #30 tab 05/05/20 [Rx Last Taken Unknown] omega 8-kna-wsv-fish oil 1 cap PO DAILY 05/12/20 [History Last Taken Unknown] dasatinib 100 mg PO DAILY 07/13/20 [History Last Taken Unknown] vitamin E 200 unit PO DAILY 08/25/20 [History Last Taken Unknown] benzonatate [Tessalon Perles] 100 mg PO BID PRN #20 cap 03/18/21 [Rx Last Taken Unknown] doxycycline hyclate 100 mg PO BID #14 tab 03/18/21 [Rx Last Taken Unknown] Allergy/AdvReac Type Severity Reaction Status Date / Time No Known Allergies Allergy Verified 02/22/21 14:02 Family History Father Colon cancer Diabetes Heart disease Hypertension CAD (coronary artery disease) Sister Breast cancer Mother CAD (coronary artery disease) Hypertension Heart disease Surgical History History of bilateral inguinal hernia repair (08/2018) History of bone marrow biopsy (04/13/20) History of coronary artery stent placement (01/2017) Status post laparoscopic Migue fundoplication (10/15/18) Social History household members: spouse Smoking Status: Current some day smoker tobacco type: cigarettes Tobacco: How many years used: 40 Electronic Cigarette Use: not used second hand exposure: No alcohol intake: current alcohol intake frequency: a few times a week Alcohol type: beer substance use type: does not use well-balanced diet: about half the time uyen/latter-day: Latter Day seatbelt use: always do you feel safe at home: Yes ROS ROS ED Constitutional Constitutional ED: Denies chills or fever(s) Eyes Eyes: Denies change in vision ENT ENT ED: Denies ear pain, rhinorrhea or sore throat Cardiovascular Cardiovascular: Reports chest pain; Denies palpitations or racing heartbeat Respiratory/Chest Respiratory/Chest: Reports cough and dyspnea; Denies dyspnea on exertion or sputum Gastrointestinal Gastrointestinal: Reports nausea; Denies abdominal pain, diarrhea or vomiting Genitourinary Genitourinary ED: Denies dysuria or hematuria Musculoskeletal Musculoskeletal: Denies arthralgias or myalgias Integumentary Denies rash Neurologic Neurologic: Denies headache(s) or weakness EXAM Physical Exam Const Vital Signs: 03/17/21 21:15 03/17/21 21:44 03/17/21 23:19 Temperature 98.1 F 98.7 F Temperature Source Temporal Temporal Pulse Rate 76 77 89 Respiratory Rate 18 27 H 20 H Blood Pressure 137/85 H 165/80 H 111/70 Blood Pressure Mean 102 108 83 Pulse Ox 95 95 95 Oxygen Delivery Method Room Air Room Air Room Air 03/18/21 00:03 Temperature Temperature Source Pulse Rate 86 Respiratory Rate 28 H Blood Pressure 120/57 L Blood Pressure Mean 78 Pulse Ox Oxygen Delivery Method Positive well nourished and well developed General Appearance ED: well developed HEENT normocephalic and atraumatic Eyes PERRL and EOMs intact bilaterally Neck no lymphadenopathy, supple and no JVD Chest Wall inspection of chest normal Resp normal respiratory effort Auscultation: rhonchi right upper and right lower Cardio regular rate, regular rhythm and no murmurs GI normal to inspection, nondistended, normoactive bowel sounds Extremity normal to inspection General Extremety ED: Negative for edema or tenderness General Extremity: Negative for edema Neuro oriented x3 Sensorium / Orientation: awake and alert Motor Exam: Negative for general weakness Psych mental status grossly normal Skin no rashes or lesions noted MDM MDM MDM Narrative Medical decision making narrative: Patient is evaluated for chest discomfort. Is mostly pleuritic in nature. He does have a leukocytosis with white blood cell count of 13.0. Chest x-ray interpreted by radiology shows no acute process and chronic changes however I suspect there is a developing infiltrate in the right lower lobe. D-dimer is normal for age. His high sensory phone is normal x2. EKG does not show any acute ischemic changes. Patient be treated as pneumonia. He is not hypoxic in the emergency room and is ambulating does not go below 94%. He had his Covid vaccine and his Covid rapid antigen is negative. Patient will follow up with his plastic welder for his leukocytosis as well as his PCP. He is counseled on return precautions. He verbalizes agreement understanding this plan. He is instructed to take NSAIDs as needed for chest pain as well as per given a prescription for Tesvaleriano Perles to help with his cough. He is given first dose of doxycycline in the emergency room. Lab Data Attestation: I reviewed the patient's lab results. Labs: Laboratory Results - last 24 hr 03/17/21 03/17/21 03/17/21 21:27 21:27 21:27 WBC 13.0 H RBC 4.76 Hgb 14.6 Hct 44.9 MCV 94.3 H MCH 30.7 MCHC 32.5 RDW Std Deviation 47.6 H RDW Coeff of Zayra 13.6 Plt Count 179 MPV 9.5 Immature Gran % (Auto) 0.400 Neut % (Auto) 67.7 Lymph % (Auto) 17.9 L Arroyo % (Auto) 10.2 H Eos % (Auto) 3.3 Baso % (Auto) 0.5 Absolute Neuts (auto) 8.8 H Absolute Lymphs (auto) 2.32 Nucleated RBC % 0 D-Dimer Quant (PE/DVT) Sodium 140 Potassium 3.9 Chloride 109 H Carbon Dioxide 26.0 Anion Gap 5 BUN 13 Creatinine 0.77 Estim Creat Clear Calc 111.98 Est GFR (MDRD) Af Amer 132 Est GFR (MDRD) Non-Af 109 BUN/Creatinine Ratio 16.8 Glucose 97 Calcium 8.9 Total Bilirubin 0.40 Direct Bilirubin 0.10 AST 36 ALT 51 Alkaline Phosphatase 67 Troponin I High Sens < 3 L Total Protein 7.9 Albumin 4.2 Globulin 3.7 Lipase 271 03/17/21 03/17/21 22:50 22:50 WBC RBC Hgb Hct MCV MCH MCHC RDW Std Deviation RDW Coeff of Zayra Plt Count MPV Immature Gran % (Auto) Neut % (Auto) Lymph % (Auto) Arroyo % (Auto) Eos % (Auto) Baso % (Auto) Absolute Neuts (auto) Absolute Lymphs (auto) Nucleated RBC % D-Dimer Quant (PE/DVT) 0.55 H* Sodium Potassium Chloride Carbon Dioxide Anion Gap BUN Creatinine Estim Creat Clear Calc Est GFR (MDRD) Af Amer Est GFR (MDRD) Non-Af BUN/Creatinine Ratio Glucose Calcium Total Bilirubin Direct Bilirubin AST ALT Alkaline Phosphatase Troponin I High Sens < 3 L Total Protein Albumin Globulin Lipase Radiography Chest X-Ray - ED: 1 View, Read by ED Physician, Read by Radiologist and Left Infiltrate Diagnostic Testing: Radiology Impression Chest X-Ray 03/17/21 21:47 IMPRESSION: Mild residual interstitial thickening in the right lower lobe likely chronic change. No definitive evidence for acute cardiopulmonary pathology Electronically Signed: Jesus Benito MD at 22:21 EDT , Service support , Rhythm Strip Rhythm Strip: Sinus Rhythm Rate: 77 Ectopy: None EKG Initial EKG: Attestation: I personally reviewed and interpreted this EKG as follows: Interpretation: Sinus Rhythm Comments: Normal sinus rhythm the rate of 77 Normal axis Normal intervals Normal ST segments Discharge Plan Triage Chief Complaint: Chest Pain ED Provider: Edwina Meeks Dx/Rx/DC Orders Clinical Impression: Pneumonia, Chest pain, pleuritic, Leukocytosis Instructions: ED Pleurisy, ED Pneumonia (Adult) Prescriptions: New doxycycline hyclate 100 mg tablet 100 mg PO BID Qty: 14 RF: 0 benzonatate [Tessalon Perles] 100 mg capsule 100 mg PO BID PRN (Reason: cough) Qty: 20 RF: 0 No Action carvedilol 6.25 mg tablet 6.25 mg PO BID RF: 0 ramipril 2.5 mg capsule 2.5 mg PO DAILY RF: 0 aspirin 81 mg tablet,delayed release (DR/EC) 81 mg PO DAILY RF: 0 cholecalciferol (vitamin D3) 1,000 unit capsule 1,000 unit capsule 1,000 unit PO DAILY RF: 0 atorvastatin 80 mg tablet 80 mg PO QHS RF: 0 ascorbic acid (vitamin C) 1,000 MG tablet 1,000 mg PO DAILY RF: 0 ondansetron HCl 8 MG tablet 8 mg PO Q8H PRN PRN (Reason: Nausea/Emesis) Qty: 30 RF: 6 omega 5-mps-nox-fish oil 500 MG capsule,delayed release(DR/EC) 1 cap PO DAILY RF: 0 dasatinib 100 MG tablet 100 mg PO DAILY RF: 0 vitamin E 200 UNIT capsule 200 unit PO DAILY RF: 0 Primary Care Provider: Jocelin Saunders Referrals: Jocelin Saunders DO [Primary Care Provider] - Activity Restrictions/Additional Instructions: Follow-up with your oncologist for your white blood cell count to make sure it goes down. We will treat you for pneumonia today. You can take njfa-bwm-jpzurap ibuprofen as needed for the pain. Do not take more than what is recommended on the bottle. Disposition Disposition: Home, Self Care What to do if you have Problems For any increased pain, shortness of breath, bleeding, nausea or vomiting, chest pain, or any unexpected problems, contact your Primary Care Provider. Call [facility] ([phone]) or report to the closest Emergency Room. Call 911 if necessary. 03/18/21 0104 <Electronically signed by Edwina Meeks DO> Cosigner Signature (if applicable): CC: Dr. Jocelin Saunders DO Signed Jocelin Saunders DO Work Phone: Start: 03-17-2021 End: 03-17-2021 Chest 1 View (Portable) Comments: See Note; NOTES: [facility] Imaging Services [address] [place] [address] Chest 1 View (Portable) MR#: [id number] Acct: [id number] Name: FREDERIC OVALLES Rep #: [id number] : 1960 M 60 From: Jesus Benito MD PCP: Dr. Jocelin Saunders DO Status: PRE ER Study: Chest 1 View (Portable) Date of Exam: 03/17/21 Exam# [id number] Ordering Dr: Edwina Meeks DO STUDY: X-RAY CHEST REASON FOR EXAM: Male, 60 years old. chest pain TECHNIQUE: AP portable COMPARISON: 10/27/2018 FINDINGS: Mild prominence of interstitial markings in the right lower lobe.. There is no demonstrated pleural abnormality. Normal size heart. Normal mediastinum and luis. Normal visualized pulmonary arteries. Normal visualized aortic arch and descending thoracic aorta. Normal visualized thoracic spine. Normal visualized ribs, clavicles, and shoulders. There is no demonstrated abnormality of the visualized soft tissue structures of the upper abdomen. The interstitial thickening in the right lower lobe has improved since previous study of the left lower lobe has cleared RAD/Chest 1 View (Portable) IMPRESSION: Mild residual interstitial thickening in the right lower lobe likely chronic change. No definitive evidence for acute cardiopulmonary pathology Electronically Signed: Jesus Benito MD at 22:21 EDT , Service support , CC: Dr. Edwina Meeks DO; Dr. Jocelin Saunders DO Wool Supplier: Signed Jocelin Saunders DO Work Phone: Start: 03-17-2021 End: 03-20-2021 12 Lead EKG Comments: See Note; NOTES: [facility] Cardiovascular Services [address] [place] [address] 12 Lead EKG 03/17/212122 MR#: [id number] Acct: [id number] Name: FREDERIC OVALLES Rep #: [id number] : 1960 60 From: Hector Hsu MD Attending Dr: Status: DEP ER Ordering Dr: Yogi,Ed P. Date: 03/17/21 Location: ED Sex: M C Admitted: Test Reason : CP Blood Pressure : / mmHG Vent. Rate : 077 BPM Atrial Rate : 077 BPM P-R Int : 138 ms QRS Dur : 096 ms QT Int : 370 ms P-R-T Axes : 002 003 023 degrees QTc Int : 418 ms Normal sinus rhythm Low voltage QRS Borderline ECG Confirmed by HECTOR HSU MD ([id number]), commercial production editor RULA VAZQUEZ ([id number]) on 03/20/2021 12:54:59 PM Referred By: DR YOUNGER Confirmed By:HECTOR HSU MD 03/20/21 1254 Date Hector Hsu MD CC: Dr. Edwina Meeks DO; Dr. Jocelin Saunders DO; ED PHYSICIAN PROVIDER Signed Jocelin Saunders DO Work Phone: Start: 02-22-2021 End: 02-22-2021 Oncology Visit Report Comments: See Note; NOTES: [facility] [address] [address] OFFICE VISIT Date of Service: 02/22/21 1356 MR#: [id number] Acct: [id number] Name: FREDERIC OVALLES Rep #: [id number] : 1960 From: Sawyer Delgado MD Age/Sex: 60/M Location: [facility] [place] Status: Signed HPI Subjective Date of Service 02/22/21 Chief Complaint Chronic myeloid leukemia on treatment History of Present Illness 60-year-old gentleman with no known chronic inflammatory or infectious diseases referred in consultation because of a persistent leukocytosis. March 2020 peripheral blood BCR ABL by FISH was positive consistent with chronic myeloid leukemia. Bone marrow aspirate and biopsy April 13, 2020: BONE MARROW DIAGNOSIS Bone marrow biopsy, clot and aspiration (specimens A-C): Hypercellular bone marrow. No stainable iron identified. No evidence of lymphoproliferative disorder. See comment. COMMENT Flow cytometry analysis reveals no increased blasts population. However, myeloid elements exhibit aberrant expression of CD56 and show left shift with down-regulation of CD10 and CD16. The findings are compatible with an underlying primary myeloid neoplasm. The flow cytometry analysis report from [employer] is reviewable in the patient???s EMR. BONE MARROW STUDY Slides are reviewed. CBC DATE: 04/13/20 WBC 22.5; RBC 5.33; HGB 15.8; HCT 48.5; MCV 91.0; RDW 48.2; PLTS 206,000 SEGS 54%; LYMPHS 23%; MONOS 11%; EOS 2%; BASOS 0% PERIPHERAL SMEAR: Submitted. RBC: Normochromic, normomorphic WBC: Neutrophilic leukocytosis with slight left shift. PLTS: Normomorphic BONE MARROW ASPIRATE DIFFERENTIAL: 200 cell count. Blasts % (normal 0-2): 2 Promyelocytes % (normal 1-5): 5 Myelocytes and metamyelocytes % (normal 17-41): 38 Bands and Segs % (normal 15-32): 26 Eos % (normal 1-6): 2 Basos % (normal 0-1): 0 Monocytes % (normal 0-4): 2 Erythroid Precursors % (normal 17-35): 18 Lymphocytes % (normal 7-13): 7 Plasma Cells % (normal 0-2): 0 ASPIRATE FINDINGS: Site: Not specified Paucispicular Cellular M/E ratio: Within normal limits (Normal 1.5 - 4.0) Megakaryocytes: Adequate Erythropoiesis: Progressive Granulopoiesis: Normoblastic CORE BIOPSY FINDINGS: Site: Not specified Adequacy: No bone present Cellularity %: Not applicable M/E ratio: Not applicable Blood Only rare marrow cell noted. ASPIRATE CLOT FINDINGS: Site: Not specified Marrow Particles: Many Cellularity %: 80% M/E ratio: Within normal limits Megakaryocytes: Adequate Granuloma(s): 0 Lymphoid aggregate(s): 0 Atypical infiltrate(s): 0 SPECIAL STAINS (with matched controls): Iron: Stainable iron not present Reticulin: Within normal limits PAS: Highlights myeloid elements and megakaryocytes. ADDENDUM FISH BCR/ABL1 REPORT FROM [facility] INTERPRETATION: BCR/ABL gene rearrangement is detected. RESULTS: BCR/ABL1 Normal Nuclei Positive Nuclei with Dual Fusion 3.33% 96.67% CYTOGENETICS REPORT FROM [facility] INTERPRETATION: Abnormal male karyotype was observed in twenty metaphases analyzed. 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] Treatment: Dasatinib 100 mg daily April 28, 2020- [facility] Medical History Atherosclerosis of coronary artery of [place] heart without angina pectoris Essential (primary) hypertension Fatigue Fracture of great toe, right, open Hiatal hernia with GERD History of back problems History of ST elevation myocardial infarction (STEMI) (01/2017) Hyperlipidemia Leukocytosis Near syncope Nicotine dependence Obesity (BMI 30.0-34.9) Old anterior wall myocardial infarction Unspecified injury of right foot, sequela Surgical History History of bilateral inguinal hernia repair (08/2018) History of bone marrow biopsy (04/13/20) History of coronary artery stent placement (01/2017) Status post laparoscopic Migue fundoplication (10/15/18) Family History Father Colon cancer Diabetes Heart disease Hypertension CAD (coronary artery disease) Sister Breast cancer Mother CAD (coronary artery disease) Hypertension Heart disease Social History household members: spouse Smoking Status: Current some day smoker Tobacco: How many years used: 40 Electronic Cigarette Use: not used second hand exposure: No alcohol intake: current alcohol intake frequency: a few times a week Alcohol type: beer substance use type: does not use well-balanced diet: about half the time uyen/latter-day: Latter Day seatbelt use: always do you feel safe at home: Yes ROS Constitutional Constitutional: Reports systems reviewed and no addt'l complaints, except as documented; Denies fatigue, fever(s) or weight loss Eyes Eyes: Reports systems reviewed and no addt'l complaints, except as documented ENT HEENT: Reports systems reviewed and no addt'l complaints, except as documented; Denies headache(s), mouth lesions or mucositis Cardiovascular Cardiovascular: Reports systems reviewed and no addt'l complaints, except as documented; Denies chest pain with activity or edema Respiratory/Chest Respiratory/Chest: Reports systems reviewed and no addt'l complaints, except as documented; Denies cough or dyspnea on exertion Gastrointestinal Gastrointestinal: Reports systems reviewed and no addt'l complaints, except as documented; Denies change in bowel habits, diarrhea or nausea Genitourinary Genitourinary: Reports systems reviewed and no addt'l complaints, except as documented; Denies dysuria Musculoskeletal Musculoskeletal: Reports systems reviewed and no addt'l complaints, except as documented, back pain and other Details: Chronic back pain unchanged Integumentary Integumentary: Reports systems reviewed and no addt'l complaints, except as documented, dry skin, rash and other Details: None itchy rash on upper arms Neurologic Neurologic: Reports systems reviewed and no addt'l complaints, except as documented; Denies headache(s) or weakness Psychiatric Psychiatric: Reports systems reviewed and no addt'l complaints, except as documented Endocrine Endocrinology: Reports systems reviewed and no addt'l complaints, except as documented Hematologic/Lymphatic Hematologic/Lymphatic: Reports systems reviewed and no addt'l complaints, except as documented; Denies easy bleeding or easy bruising Allergic/Immunologic Allergic/Immunologic: Reports systems reviewed and no addt'l complaints, except as documented Intake Vital Signs 02/22/21 13:56 Height 6 ft Weight: 106.197 kg BMI 31.7 BP 117/7 L Blood Pressure Location Lt brachial Position Sitting Respiration 16 Pulse 66 Pulse Source Monitor Temp 98.6 F Temperature Source Temporal Artery Pulse Oximetry (%) 93 Oxygen Delivery Method room air Intake Price Accuracy Supervisor Required: No Accompanied by: Self Is patient in pain?: No Allergies No Known Allergies Allergy (Verified 02/22/21 14:02) Medications aspirin 81 mg tablet,delayed release 81 mg PO DAILY 09/02/18 [History Confirmed 02/22/21] carvedilol 6.25 mg tablet 6.25 mg PO BID 09/02/18 [History Confirmed 02/22/21] cholecalciferol (vitamin D3) 25 mcg (1,000 unit) capsule 1,000 unit PO DAILY 09/02/18 [History Confirmed 02/22/21] ramipril 2.5 mg capsule 2.5 mg PO DAILY 09/02/18 [History Confirmed 02/22/21] atorvastatin 80 mg tablet 80 mg PO QHS tab 12/15/19 [History Confirmed 02/22/21] ascorbic acid (vitamin C) 1,000 mg PO DAILY 04/05/20 [History Confirmed 02/22/21] ondansetron HCl 8 mg PO Q8H PRN PRN #30 tab 05/05/20 [Rx Confirmed 02/22/21] omega 0-gby-obo-fish oil 1 cap PO DAILY 05/12/20 [History Confirmed 02/22/21] dasatinib 100 mg PO DAILY 07/13/20 [History Confirmed 02/22/21] vitamin E 200 unit PO DAILY 08/25/20 [History Confirmed 02/22/21] Central Venous Access Central Venous Access: No RUN DATE: 02/22/21 [facility], DEPARTMENT OF LABORATORIES PAGE 1 RUN TIME: 1409 Specimen Inquiry [address] [place], [address] PATIENT: FREDERIC OVALLES LOC: ONC U #: [id number] : 1960 AGE/SX: 60/M FACILITY: [facility] ROOM: RE02/08/[address]: Rigoberto Langford STATUS:REG RCR BED: DIS: SPEC #: [id number] ISAAC: 02/08/21 STATUS: COMP REQ #: [id number] RECD: 02/08/[address]: Dr. Sawyer Delgado MD ENTERED: 02/08/[address]: QUERIES: Comments: LC # [id number] BCR/ABL Test(s) Ordered: [id number] BCR/ABL GREEN SHEP WB RT Test Result Flag Adult Reference Range [facility] [place] LAB TEST TEST RESULT UNITS REF INTERVAL BCR-ABL1, CML/ALL, PCR, Quant e13a2 (b2a2) transcript 0.0310 % e14a2 (b3a2) transcript % <0.0032 % e1a2 transcript 01 % <0.0032 % Interpretation: Positive POSITIVE for the BCR-ABL1 e13a2 (b2a2, p210) fusion transcript. Director Review Christopher Mckeon, PhD, [facility] Director, Molecular Oncology [facility] [place] [address] Background This assay can detect three different types of BCR-ABL1 fusion transcripts associated with CML, ALL, and AML: e13a2 (previously b2a2) and e14a2 (previously b3a2) (major breakpoint, p210), as well as e1a2 (minor breakpoint, p190). The e13a2 and e14a2 transcript values are titrated to the current International Scale (IS). The standardized baseline is 100% BCR-ABL1 (IS) and major molecular response (MMR) is equivalent to 0.1% BCR-ABL1 (IS) corresponding to a 3-log reduction. Results should be correlated with appropriate clinical and laboratory information as indicated. Methodology Total RNA is isolated from the sample and subject to a real-time, reverse transcriptase polymerase chain reaction (RT-PCR). The PCR primers and probes are specific for BCR-ABL1 e13a2, e14a2 and e1a2 fusion transcripts. The ABL1 transcript is amplified as the control for cDNA quantity and quality. Serial dilutions of a validated positive control RNA with known t(9;22) BCR-ABL1 are used as reference for quantification of BCR-ABL1 relative to ABL1. The numeric BCR-ABL1 level is reported as % BCR-ABL1/ABL1 and the detection sensitivity is 4.5 log below the standard baseline (<0.0032%). This test was developed and its performance characteristics determined by [employer]. It has not been cleared or approved by the Food and Drug Administration. TESTING PERFORMED AT [facility]. ORIGINAL REPORT ON FILE IN LAB CONTAINS ADDITIONAL TEST SITE INFORMATION. Exam Physical Exam Const alert and oriented x3 Constitutional Narrative: ECOG 0-1 General Appearance: cooperative and comfortable Nutritional Appearance: overweight HEENT normocephalic Head and Scalp: normal to inspection Mouth: oral and palatal mucosa normal Eyes General Eye: normal appearance of both eyes Conjunctiva: conjunctiva normal Sclera: sclera normal Neck no lymphadenopathy and no JVD Lymph Lymphatic: no lymphadenopathy noted Chest Chest: symmetrical chest wall rise Resp normal respiratory effort and clear to auscultation bilaterally Cardio regular rate and regular rhythm Jugular Venous Distention: Negative for JVD GI soft to palpation, non-tender and non-distended; Negative for hepatosplenomegaly no CVA tenderness Back/Spine no CVA tenderness and no thoracic nor lumbar tenderness Extremity no clubbing, cyanosis or edema Skin Rashes: rashes noted Neuro oriented x3, CN's II-XII intact bilaterally and moves all extremities Coordination / Balance: prloay-mv-mcwj test normal Speech: speech normal Gait (Neuro): normal gait Psych mental status grossly normal, thought process normal, cooperative and affect normal Coding Level of Care Code Off vis,est,level 4 Diagnoses Chronic myeloid leukemia C92.10 Assessment and Plan Assessment and Plan (1) Chronic myeloid leukemia: Status: Chronic Orders: Orders: Comprehensive Metabolic Profil 05/09/21 C92.10 CBC W/Diff, Automated 05/09/21 C92.10 Miscellaneous Lab Procedure 05/09/21 C92.10 Plan - Dr. Sawyer Delgado MD: 60-year-old male who presented with with a mature neutrophilic leukocytosis first noted January 2020, progressively worsening. He has no known chronic inflammatory or infectious diseases. BCR ABL profile with FISH is positive consistent with chronic myeloid leukemia. Bone marrow aspirate and biopsy March 2020 confirmed the diagnosis with a q BCR ABL positivity of 96.67% Started TKI therapy with dasatinib April 28, 2020, a decline in WBC/ANC is consistent with a hematologic response within the first month of treatment. Treatment is tolerated with no grade 3 or 4 toxicities. Mild elevation of liver enzymes less than 2 fold resolved and an increasing leukopenia with preserved neutrophil count noted at 4 weeks of treatment also resolved with continued standard dosing. He is showing a response to treatment with a significant decline in quantitative BCR ABL by PCR, see table below for summary of response: Date qBCR-ABL (e13a2/b2a2) 03/30/2020 159.1086 08/10/2020 0.3342 11/10/2020 0.017 02/08/2021 0.031 Comorbid conditions: smoker with over 30 pack years cigarettes (started at age 18 averaging 1/2 to 1 pack of cigarettes daily), hypertension, coronary artery disease and dyslipidemia. Plan: #1-Continue dasatinib standard dose and follow-up in 12 weeks. His pretreatment left ventricular ejection fraction normal at 55% March 2020. His EKG showed normal sinus rhythm with a normal QT/QTc 392/44 ms Hepatitis serologies showed no active chronic hepatitis #2-for occasional nausea continue to use ondansetron as needed. #3-Lung cancer screening : CT of the chest to schedule April 2021 . #4-Follow-up with CBC, CMP and Q. BCR/ABL in 3 months. Patient was seen , impression and plan discussed. Sawyer Delgado MD Transit Driver, [facility] Divisions of Medical Oncology Hematology Department of Internal Medicine [place] [id number] This note was generated using a voice recognition system software. Although it was reviewed by the author prior to finalization, it may still contain incorrect words, spelling, and punctuation that were not noted when reviewing prior to saving. If a clinically significant typo or inaccurately typed phrase is noted, please notify the author. 02/22/21 1505 <Electronically signed by Sawyer Delgado MD> Date Sawyer Delgado MD Cosigner Signature: Date (if applicable) CC: DO Jocelin Wiseman DO Work Phone: Start: 12-28-2020 End: 12-28-2020 Stress Report Comments: See Note; NOTES: [facility] Cardi[facility] [address] [place] [address] MR#: [id number] Acct: [id number] Name: FREDERIC OVALLES Rep #: [id number] : 1960 60 From: Hector Hsu MD Primary Care: Dr. Jocelin Saunders DO Status: REG CLI Referring Dr: Hector Hsu MD Sex: M C Stress Test Report Exercise myocardial perfusion stress test. 60-year-old man with a history of previous anterior myocardial infarction and chronic myeloid leukemia. Stress protocol: Resting EKG demonstrates normal sinus rhythm with a rate of 65 bpm normal intervals are noted. Resting blood pressure is 102/72 mmHg. The patient exercised according to regular Gallito protocol for total duration of 9 minutes and 30 seconds. The maximum heart rate attained was 141 bpm which was 88% of maximum predicted heart rate the maximum workload was 10.7 metabolic equivalents. At rest there were no ST or T wave changes noted to suggest ischemia and at peak exercise upsloping ST changes were noted with did not meet the criteria for ischemia. No clinical angina was noted the test was terminated due to leg fatigue. The peak blood pressure was 160/68 mmHg with a rate pressure product of 21,700. Myocardial perfusion protocol. 14.7 mCi of technetium 99m sestamibi was injected at rest. The patient exercised according to regular Gallito protocol for total duration of 9-1/2 minutes. The maximum heart rate attained was 141 bpm. At peak exercise 44.6 mCi of technetium 99m sestamibi was injected at rest. Stress and rest images were reconstructed and compared in the short axis vertical long and horizontal long axis. Gated images were also obtained Perfusion SPECT analysis: Review of the stress images demonstrate normal cardiac silhouette size. There is minimal perfusion reduction noted in the distal anterior wall towards the apex noted on the stress images. The resting images demonstrate minimal perfusion defect, with no significant improvement to suggest ischemia. Previous small infarct in this area cannot be completely excluded. The rest of the chaevz appear to be normally perfused. Gated SPECT analysis: The gated ejection fraction is 65%. Conclusion: Exercise myocardial perfusion stress test with no obvious ischemia noted. Previous small anterior infarct cannot be excluded. Preserved ejection fraction. Good functional capacity. 12/28/201737 <Electronically signed by Hector Hsu MD> Date Hector Hsu MD CC: Dr. Hector Hsu MD; Dr. Jocelin Saunders DO Date Dictated: 12/28/201732 Date Transcribed: 12/28/201732 [employer]: [place] Signed Jocelin Saunders DO Work Phone: Start: 12-16-2020 End: 12-16-2020 Cardiology Visit Report Comments: See Note; NOTES: [facility] [address] [place] [address] OFFICE VISIT Date of Service: 12/16/20 MR#: [id number] Acct: [id number] Name: FREDERIC OVALLES Rep #: [id number] : 1960 Provider: Dr. Hector Hsu MD Age/Sex: 60/M Location: [facility] Status: Signed HPI HPI History of Present Illness Details: This is a 60-year-old gentleman that presents here today for a follow-up cardio oncology visit. He has a history of coronary artery disease with myocardial infarction in 2016 with 2 stents placed at that time.??? One was in the proximal left anterior descending artery and the other was in the mid right coronary artery.??? He also has a history of hypertension, hyperlipidemia.??? He has been diagnosed with chronic myeloid leukemia and has been on dasatinib which was started in April which she has tolerated well.??? His echocardiographic findings prior to this demonstrated an ejection fraction of 55% with a global longitudinal strain of 18.1. From a cardiac standpoint, patient is doing well.??? He does not have any chest discomfort/heaviness/tightness .??? His exercise tolerance is stable for his age.??? He does not have any worsening symptoms of shortness of breath. He does get SOB with exertional activity but it would be what he would expect. He denies any PND.??? He does not have any orthopnea.??? He does not have any symptoms of congestive heart failure.??? He does not have any palpitations that he is aware of.??? He does not have any lightheadedness or dizziness.??? He does not have any near-syncope or syncope. He did undergo a stress test in August 2018 where he exercised to a high metabolic workload.??? He tells me that he has been having some issues with excessive sweating and he does not know the etiology.??? He has gained some weight to this last year.??? He does not have any lower extremity edema.??? He does not have any symptoms of claudication.??? His physical exam demonstrated clear lung osuna regular rate and rhythm and no pedal edema Intake Vital Signs 12/16/20 10:23 Height 6 ft Weight: 237 lb BMI 32.1 BP 118/74 Respiration 18 Pulse 72 Pulse Oximetry (%) 96 Intake Visit Reasons: 1 Y FU Allergies No Known Allergies Allergy (Verified 12/16/20 10:23) Medications aspirin 81 mg tablet,delayed release 81 mg PO DAILY 09/02/18 [History Confirmed 12/16/20] carvedilol 6.25 mg tablet 6.25 mg PO BID 09/02/18 [History Confirmed 12/16/20] cholecalciferol (vitamin D3) 25 mcg (1,000 unit) capsule 1,000 unit PO DAILY 09/02/18 [History Confirmed 12/16/20] ramipril 2.5 mg capsule 2.5 mg PO DAILY 09/02/18 [History Confirmed 12/16/20] atorvastatin 80 mg tablet 80 mg PO QHS tab 12/15/19 [History Confirmed 12/16/20] ascorbic acid (vitamin C) 1,000 mg PO DAILY 04/05/20 [History Confirmed 12/16/20] ondansetron HCl 8 mg PO Q8H PRN PRN #30 tab 05/05/20 [Rx Confirmed 12/16/20] omega 3-ljg-dxu-fish oil 1 cap PO DAILY 05/12/20 [History Confirmed 12/16/20] dasatinib 100 mg PO DAILY 07/13/20 [History Confirmed 12/16/20] vitamin E 200 unit PO DAILY 08/25/20 [History Confirmed 12/16/20] Ejection fraction %: 55 to 59 PFSH Medical History Atherosclerosis of coronary artery of [place] heart without angina pectoris Essential (primary) hypertension Fatigue Fracture of great toe, right, open Hiatal hernia with GERD History of back problems History of ST elevation myocardial infarction (STEMI) (01/2017) Hyperlipidemia Leukocytosis Near syncope Nicotine dependence Obesity (BMI 30.0-34.9) Old anterior wall myocardial infarction Unspecified injury of right foot, sequela Surgical History History of bilateral inguinal hernia repair (08/2018) History of bone marrow biopsy (04/13/20) History of coronary artery stent placement (01/2017) Status post laparoscopic Migue fundoplication (10/15/18) Family History Father Colon cancer Diabetes Heart disease Hypertension CAD (coronary artery disease) Sister Breast cancer Mother CAD (coronary artery disease) Hypertension Heart disease Social History household members: spouse Smoking Status: Current some day smoker Tobacco: How many years used: 40 Electronic Cigarette Use: not used second hand exposure: No alcohol intake: current alcohol intake frequency: a few times a week Alcohol type: beer substance use type: does not use well-balanced diet: about half the time uyen/latter-day: Latter Day seatbelt use: always do you feel safe at home: Yes ROS Const Const: Positive for other (Continues to smoke 0.5 ppd); Negative for fatigue, weakness, headache(s), frequent falls, difficulty sleeping or excessive sweating Eyes Eyes: Negative for loss of peripheral vision, transient loss of vision, blurry vision, double vision or tunnel vision ENT ENT: Negative for headache(s), dizziness, Nosebleed/epistaxis or balance problems Cardio Chest Pain: No Palpitations: No Edema: None Muscle aches with walking: None Resp Respiratory: Negative for SOB with activity, SOB at rest, SOB orthopnea SOB lying down, Cough or paroxysmal nocturnal dyspnea GI GI: Negative nausea, vomiting, heartburn or black,tarry stools : Negative for hematuria Musc Musc: Negative for muscle aches/ myalgia, muscle weakness, joint pain or balance problems Skin Skin: Negative non-healing lesions, rash or unusual bruising Neuro Neuro: Negative for dizziness, lightheadedness, near syncope, syncope, orthostatic symptoms, frequent falls, headache(s), weakness, blurry vision, double vision or lack of coordination Reynaldo Hematologic/Lymphatic: Negative for easy bleeding or easy bruising Endo Endo: Negative for fatigue, excessive sweating or increased thirst/drinking Psych Psych: Negative for anxiety or depression Allergy Allergy/Immunology: Negative for hives and Negative for rash Cardiology Exam Const Appearance: cooperative, healthy appearing, no acute distress, well developed and well groomed Nutritional Appearance: average body habitus and well nourished Orientation: alert, awake and oriented x3 Head Head: normal to inspection, normocephalic and atraumatic Ears: hearing grossly normal bilaterally and external ears normal Nose: external nose normal, nares normal, nasal mucous membranes and turbinates normal, septum normal and no nasal discharge Face and Sinus: face symmetric Mouth: oral mucosae normal, tongue normal, oropharynx normal and moist mucous membranes Teeth and gingiva: dentition normal Throat: posterior oropharynx normal, tonsils normal and uvula midline Eyes General: appearance normal, both eyes and all related structures Eyelids: eyelids normal Conjunctivae: conjunctivae normal Pupils: PERRL, normal by confrontation and accommodation normal EOM: EOM intact bilaterally Neck Neck: normal visual inspection, trachea midline and no JVD JVD: +5 Carotids: normal carotid upstroke and bounding pulses Chest Chest inspection: normal inspection of the chest, symmetric chest movement and normal respiratory effort Auscultation: Bilateral: Clear to Auscultation Cardio Palpation: normal PMI Rate: regular rate Rhythm: regular rhythm Heart sounds: S1 normal, S2 normal and normal, physiologic split S2; Negative rub, gallop or murmur GI GI: normal to inspection, soft, no hepatosplenomegaly and bowel sounds present Neuro General: patient alert, patient awake, patient oriented x3, gait normal, moves all extremities and no focal sensory deficit Skin Skin: no rashes or lesions noted Extremities Pulses: Normal: Right Femoral Pulse, Left Femoral Pulse, Right Dorsalis Pedis Pulse, Left Dorsalis Pedis Pulse, Right Posterior Tibial Pulse, Left Posterior Tibial Pulse, Right Radial Pulse and Left Radial Pulse Lower Extremity Edema: None: Bilateral Musculoskel Musculoskeletal: No joint tenderness Psych Psychological: normal affect Assessment and Plan Assessment and Plan (1) History of coronary artery stent placement: Status: Resolved Comment: DNR-XNR-Gbex LAD 4.0 x 20 mm Synergy, NICA-Mid RCA w/ 4.0 x ?mm Synergy 01/20/2017 Orders: Orders: Nuclear Stress Test - Treadmil Today Plan - Dr. Hector Hsu MD: He is status post previous angioplasty and stenting of his left anterior descending artery in the mid right coronary artery. He continues to do well. I would suggest that we perform an exercise myocardial perfusion stress test and depending on the findings further recommendations will be made. He will continue with aggressive risk factor modification. (2) Chronic myeloid leukemia: Status: Chronic Plan - Dr. Hector Hsu MD: He does have chronic myeloid leukemia on dasatinib and apparently has achieved near complete remission. He will continue to follow-up with the oncologist. (3) Essential (primary) hypertension: Status: Chronic Plan - Dr. Hector Hsu MD: His blood pressure is under good control at this particular time I would not make any major changes. (4) Hyperlipidemia: Status: Chronic Qualifiers: Hyperlipidemia type: pure hypercholesterolemia Qualified Code(s): E78.00 - Pure hypercholesterolemia, unspecified; E78.0 - Pure hypercholesterolemia Plan - Dr. Hector Hsu MD: He does have a history of hyperlipidemia. I would recommend that he obtain a repeat lipid profile. His most recent lipid profile was from April 2020. Overall he is doing quite well maintaining his weight and blood pressure. Plan Details Additional Comments: Portions of this documentation were copied and pasted from previous office visit notes to provide a cohesive continuity of the history. The note has been reviewed, edited, and updated, as necessary. 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) Coding Level of Care Code Off vis,est,level 3 Diagnoses History of coronary artery stent placement Z95.5 Chronic myeloid leukemia C92.10 Essential (primary) hypertension I10 Hyperlipidemia E78.00; E78.0 Hyperlipidemia type: pure hypercholesterolemia Coding Level of Care Code Off vis,est,level 3 Diagnoses History of coronary artery stent placement Z95.5 Chronic myeloid leukemia C92.10 Essential (primary) hypertension I10 Hyperlipidemia E78.00; E78.0 Hyperlipidemia type: pure hypercholesterolemia Supplemental Info Supplemental Information Labs: LDL Cholesterol 44 mg/dL (0-130) HDL Cholesterol 51 mg/dL (40-) Triglycerides 99 mg/dL (-199) VLDL Cholesterol 20 mg/dL (5-40) Diagnostics: No Data to Display Pulmonary: No Data to Display 12/16/20 1059 <Electronically signed by Hector Hsu MD> Date Hector Hsu MD Cosigner Signature: Date (if applicable) CC: Dr. Jocelin Saunders DO; Dr. Sawyer Delgado MD Jocelin Saunders DO Work Phone: Start: 11-24-2020 End: 11-24-2020 Oncology Visit Report Comments: See Note; NOTES: [facility] [place] [address] OFFICE VISIT Date of Service: 11/24/20 1357 MR#: [id number] Acct: [id number] Name: FREDERIC OVALLES Rep #: [id number] : 1960 From: Sawyer Delgado MD Age/Sex: 60/M Location: [facility] [place] Status: Signed HPI Subjective Date of Service Date of Service:: 11/24/20 Chief Complaint Chief Complaint: Chronic myeloid leukemia on treatment History of Present Illness History of Present Illness: 60-year-old gentleman with no known chronic inflammatory or infectious diseases referred in consultation because of a persistent leukocytosis. March 2020 peripheral blood BCR ABL by FISH was positive consistent with chronic myeloid leukemia. Bone marrow aspirate and biopsy April 13, 2020: BONE MARROW DIAGNOSIS Bone marrow biopsy, clot and aspiration (specimens A-C): Hypercellular bone marrow. No stainable iron identified. No evidence of lymphoproliferative disorder. See comment. COMMENT Flow cytometry analysis reveals no increased blasts population. However, myeloid elements exhibit aberrant expression of CD56 and show left shift with down-regulation of CD10 and CD16. The findings are compatible with an underlying primary myeloid neoplasm. The flow cytometry analysis report from [facility] is reviewable in the patient???s EMR. BONE MARROW STUDY Slides are reviewed. CBC DATE: 04/13/20 WBC 22.5; RBC 5.33; HGB 15.8; HCT 48.5; MCV 91.0; RDW 48.2; PLTS 206,000 SEGS 54%; LYMPHS 23%; MONOS 11%; EOS 2%; BASOS 0% PERIPHERAL SMEAR: Submitted. RBC: Normochromic, normomorphic WBC: Neutrophilic leukocytosis with slight left shift. PLTS: Normomorphic BONE MARROW ASPIRATE DIFFERENTIAL: 200 cell count. Blasts % (normal 0-2): 2 Promyelocytes % (normal 1-5): 5 Myelocytes and metamyelocytes % (normal 17-41): 38 Bands and Segs % (normal 15-32): 26 Eos % (normal 1-6): 2 Basos % (normal 0-1): 0 Monocytes % (normal 0-4): 2 Erythroid Precursors % (normal 17-35): 18 Lymphocytes % (normal 7-13): 7 Plasma Cells % (normal 0-2): 0 ASPIRATE FINDINGS: Site: Not specified Paucispicular Cellular M/E ratio: Within normal limits (Normal 1.5 - 4.0) Megakaryocytes: Adequate Erythropoiesis: Progressive Granulopoiesis: Normoblastic CORE BIOPSY FINDINGS: Site: Not specified Adequacy: No bone present Cellularity %: Not applicable M/E ratio: Not applicable Blood Only rare marrow cell noted. ASPIRATE CLOT FINDINGS: Site: Not specified Marrow Particles: Many Cellularity %: 80% M/E ratio: Within normal limits Megakaryocytes: Adequate Granuloma(s): 0 Lymphoid aggregate(s): 0 Atypical infiltrate(s): 0 SPECIAL STAINS (with matched controls): Iron: Stainable iron not present Reticulin: Within normal limits PAS: Highlights myeloid elements and megakaryocytes. ADDENDUM FISH BCR/ABL1 REPORT FROM [facility] INTERPRETATION: BCR/ABL gene rearrangement is detected. RESULTS: BCR/ABL1 Normal Nuclei Positive Nuclei with Dual Fusion 3.33% 96.67% CYTOGENETICS REPORT FROM [facility] INTERPRETATION: Abnormal male karyotype was observed in twenty metaphases analyzed. 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] Treatment: Dasatinib 100 mg daily April 28, 2020- [facility] Medical History Atherosclerosis of coronary artery of [place] heart without angina pectoris Essential (primary) hypertension Fatigue Fracture of great toe, right, open Hiatal hernia with GERD History of back problems History of ST elevation myocardial infarction (STEMI) (01/2017) Hyperlipidemia Leukocytosis Near syncope Nicotine dependence Obesity (BMI 30.0-34.9) Old anterior wall myocardial infarction Unspecified injury of right foot, sequela Surgical History History of bilateral inguinal hernia repair (08/2018) History of bone marrow biopsy (04/13/20) History of coronary artery stent placement (01/2017) Status post laparoscopic Migue fundoplication (10/15/18) Family History Father Colon cancer Diabetes Heart disease Hypertension CAD (coronary artery disease) Sister Breast cancer Mother CAD (coronary artery disease) Hypertension Heart disease Social History (Updated 11/24/20 @ 14:08 by Halle Zhang) household members: spouse Smoking Status: Current some day smoker Tobacco: How many years used: 40 Electronic Cigarette Use: not used second hand exposure: No alcohol intake: current alcohol intake frequency: a few times a week Alcohol type: beer substance use type: does not use well-balanced diet: about half the time uyen/latter-day: Latter Day seatbelt use: always do you feel safe at home: Yes ROS Constitutional Constitutional: Reports systems reviewed and no addt'l complaints, except as documented; Denies fatigue, fever(s) or weight loss Eyes Eyes: Reports systems reviewed and no addt'l complaints, except as documented ENT HEENT: Reports systems reviewed and no addt'l complaints, except as documented; Denies headache(s), mouth lesions or mucositis Cardiovascular Cardiovascular: Reports systems reviewed and no addt'l complaints, except as documented; Denies chest pain with activity or edema Respiratory/Chest Respiratory/Chest: Reports systems reviewed and no addt'l complaints, except as documented; Denies cough or dyspnea on exertion Gastrointestinal Gastrointestinal: Reports systems reviewed and no addt'l complaints, except as documented; Denies change in bowel habits, diarrhea or nausea Genitourinary Genitourinary: Reports systems reviewed and no addt'l complaints, except as documented; Denies dysuria Musculoskeletal Musculoskeletal: Reports systems reviewed and no addt'l complaints, except as documented, back pain and other Details: Chronic back pain unchanged Integumentary Integumentary: Reports systems reviewed and no addt'l complaints, except as documented, dry skin, rash and other Details: None itchy rash on upper arms Neurologic Neurologic: Reports systems reviewed and no addt'l complaints, except as documented; Denies headache(s) or weakness Psychiatric Psychiatric: Reports systems reviewed and no addt'l complaints, except as documented Endocrine Endocrinology: Reports systems reviewed and no addt'l complaints, except as documented Hematologic/Lymphatic Hematologic/Lymphatic: Reports systems reviewed and no addt'l complaints, except as documented; Denies easy bleeding or easy bruising Allergic/Immunologic Allergic/Immunologic: Reports systems reviewed and no addt'l complaints, except as documented Intake Vital Signs 11/24/20 13:58 Height 6 ft Weight: 105.857 kg BMI 31.6 BP 122/74 H Blood Pressure Location Lt brachial Position Sitting Respiration 16 Pulse 67 Pulse Source Monitor Temp 98.5 F Temperature Source Temporal Artery Pulse Oximetry (%) 95 Oxygen Delivery Method room air Intake Price Accuracy Supervisor Required: No Accompanied by: Self Is patient in pain?: Yes (back) Pain scale (1-10): 8 Allergies No Known Allergies Allergy (Verified 11/24/20 14:04) Medications aspirin 81 mg tablet,delayed release 81 mg PO DAILY 09/02/18 [History Confirmed 11/24/20] carvedilol 6.25 mg tablet 6.25 mg PO BID 09/02/18 [History Confirmed 11/24/20] cholecalciferol (vitamin D3) 25 mcg (1,000 unit) capsule 1,000 unit PO DAILY 09/02/18 [History Confirmed 11/24/20] ramipril 2.5 mg capsule 2.5 mg PO DAILY 09/02/18 [History Confirmed 11/24/20] atorvastatin 80 mg tablet 80 mg PO QHS tab 12/15/19 [History Confirmed 11/24/20] ascorbic acid (vitamin C) 1,000 mg PO DAILY 04/05/20 [History Confirmed 11/24/20] ondansetron HCl 8 mg PO Q8H PRN PRN #30 tab 05/05/20 [Rx Confirmed 11/24/20] omega 3-vfn-taz-fish oil 1 cap PO DAILY 05/12/20 [History Confirmed 11/24/20] dasatinib 100 mg PO DAILY 07/13/20 [History Confirmed 11/24/20] vitamin E 200 unit PO DAILY 08/25/20 [History Confirmed 11/24/20] Central Venous Access Central Venous Access: No Laboratory Data: CBC, CMP reviewed in EMR. BCR ABL quantitative reviewed in EMR see under assessment and plan table summary Exam Physical Exam Const alert and oriented x3 Constitutional Narrative: ECOG 0-1 General Appearance: cooperative and comfortable Nutritional Appearance: overweight HEENT normocephalic Head and Scalp: normal to inspection Mouth: oral and palatal mucosa normal Eyes General Eye: normal appearance of both eyes Conjunctiva: conjunctiva normal Sclera: sclera normal Neck no lymphadenopathy and no JVD Lymph Lymphatic: no lymphadenopathy noted Chest Chest: symmetrical chest wall rise Resp normal respiratory effort and clear to auscultation bilaterally Cardio regular rate and regular rhythm Jugular Venous Distention: Negative for JVD GI soft to palpation, non-tender and non-distended; Negative for hepatosplenomegaly no CVA tenderness Back/Spine no CVA tenderness and no thoracic nor lumbar tenderness Extremity no clubbing, cyanosis or edema Skin Rashes: rashes noted Maculopapular on upper arms Neuro oriented x3, CN's II-XII intact bilaterally and moves all extremities Coordination / Balance: vlciti-jr-cslt test normal Speech: speech normal Gait (Neuro): normal gait Psych mental status grossly normal, thought process normal, cooperative and affect normal Coding Level of Care Code Off vis,est,level 4 Diagnoses Chronic myeloid leukemia C92.10 Assessment and Plan Assessment and Plan (1) Chronic myeloid leukemia: Status: Chronic Orders: Orders: Comprehensive Metabolic Profil 02/08/21 C92.10 CBC W/Diff, Automated 02/08/21 C92.10 Miscellaneous Lab Procedure 02/08/21 C92.10 Plan - Dr. Sawyer Delgado MD: 60-year-old male who presented with with a mature neutrophilic leukocytosis first noted January 2020, progressively worsening. He has no known chronic inflammatory or infectious diseases. BCR ABL profile with FISH is positive consistent with chronic myeloid leukemia. Bone marrow aspirate and biopsy March 2020 confirmed the diagnosis with a q BCR ABL positivity of 96.67% Started TKI therapy with dasatinib April 28, 2020, a decline in WBC/ANC is consistent with a hematologic response within the first month of treatment. Treatment is tolerated with no grade 3 or 4 toxicities. Mild elevation of liver enzymes less than 2 fold resolved and an increasing leukopenia with preserved neutrophil count noted at 4 weeks of treatment also resolved with continued standard dosing. He is showing a response to treatment with a significant decline in quantitative BCR ABL by PCR, see table below for summary of response: Date qBCR-ABL 03/30/2020 159.1086 08/10/2020 0.3342 11/10/2020 <0.0032 Comorbid conditions: smoker with over 30 pack years cigarettes (started at age 18 averaging 1/2 to 1 pack of cigarettes daily), hypertension, coronary artery disease and dyslipidemia. Plan: #1-Continue dasatinib standard dose and follow-up in 12 weeks. His pretreatment left ventricular ejection fraction normal at 55% March 2020. His EKG showed normal sinus rhythm with a normal QT/QTc 392/44 ms Hepatitis serologies showed no active chronic hepatitis #2-for occasional nausea continue to use ondansetron as needed. #3-Lung cancer screening : CT of the chest April 2020 okay. #4-Follow-up with CBC, CMP and Q. BCR/ABL in 3 months. Patient was seen , impression and plan discussed. Sawyer Delgado MD Transit Driver, [facility] Divisions of Medical Oncology Hematology Department of Internal Medicine [place] [phone] This note was generated using a voice recognition system software. Although it was reviewed by the author prior to finalization, it may still contain incorrect words, spelling, and punctuation that were not noted when reviewing prior to saving. If a clinically significant typo or inaccurately typed phrase is noted, please notify the author. 11/24/20 1428 <Electronically signed by Sawyer Delgado MD> Date Sawyer Delgado MD Cosigner Signature: Date (if applicable) CC: Dr. Jocelin Saunders, DO Jocelin Saunders DO Work Phone: Start: 08-25-2020 End: 08-25-2020 Oncology Visit Report Comments: See Note; NOTES: [place] [phone] OFFICE VISIT Date of Service: 08/25/20 1312 MR#: [id number] Acct: [id number] Name: FREDERIC OVALLES Alyx Rep #: [id number] : 1960 From: Sawyer Delgado MD Age/Sex: 60/M Location: OMD Status: Signed - Problem List (1) Chronic myeloid leukemia Status: Chronic - Date of Service Date of Service:: 08/25/20 - Chief Complaint Chronic myeloid leukemia on treatment - History of Present Illness 59-year-old gentleman with no known chronic inflammatory or infectious diseases referred in consultation because of a persistent leukocytosis. March 2020 peripheral blood BCR ABL by FISH was positive consistent with chronic myeloid leukemia. Bone marrow aspirate and biopsy April 13, 2020: BONE MARROW DIAGNOSIS Bone marrow biopsy, clot and aspiration (specimens A-C): Hypercellular bone marrow. No stainable iron identified. No evidence of lymphoproliferative disorder. See comment. COMMENT Flow cytometry analysis reveals no increased blasts population. However, myeloid elements exhibit aberrant expression of CD56 and show left shift with down-regulation of CD10 and CD16. The findings are compatible with an underlying primary myeloid neoplasm. The flow cytometry analysis report from [facility] is reviewable in the patient???s EMR. BONE MARROW STUDY Slides are reviewed. CBC DATE: 04/13/20 WBC 22.5; RBC 5.33; HGB 15.8; HCT 48.5; MCV 91.0; RDW 48.2; PLTS 206,000 SEGS 54%; LYMPHS 23%; MONOS 11%; EOS 2%; BASOS 0% PERIPHERAL SMEAR: Submitted. RBC: Normochromic, normomorphic WBC: Neutrophilic leukocytosis with slight left shift. PLTS: Normomorphic BONE MARROW ASPIRATE DIFFERENTIAL: 200 cell count. Blasts % (normal 0-2): 2 Promyelocytes % (normal 1-5): 5 Myelocytes and metamyelocytes % (normal 17-41): 38 Bands and Segs % (normal 15-32): 26 Eos % (normal 1-6): 2 Basos % (normal 0-1): 0 Monocytes % (normal 0-4): 2 Erythroid Precursors % (normal 17-35): 18 Lymphocytes % (normal 7-13): 7 Plasma Cells % (normal 0-2): 0 ASPIRATE FINDINGS: Site: Not specified Paucispicular Cellular M/E ratio: Within normal limits (Normal 1.5 - 4.0) Megakaryocytes: Adequate Erythropoiesis: Progressive Granulopoiesis: Normoblastic CORE BIOPSY FINDINGS: Site: Not specified Adequacy: No bone present Cellularity %: Not applicable M/E ratio: Not applicable Blood Only rare marrow cell noted. ASPIRATE CLOT FINDINGS: Site: Not specified Marrow Particles: Many Cellularity %: 80% M/E ratio: Within normal limits Megakaryocytes: Adequate Granuloma(s): 0 Lymphoid aggregate(s): 0 Atypical infiltrate(s): 0 SPECIAL STAINS (with matched controls): Iron: Stainable iron not present Reticulin: Within normal limits PAS: Highlights myeloid elements and megakaryocytes. ADDENDUM FISH BCR/ABL1 REPORT FROM [facility] INTERPRETATION: BCR/ABL gene rearrangement is detected. RESULTS: BCR/ABL1 Normal Nuclei Positive Nuclei with Dual Fusion 3.33% 96.67% CYTOGENETICS REPORT FROM [facility] INTERPRETATION: Abnormal male karyotype was observed in twenty metaphases analyzed. 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] Treatment: Dasatinib 100 mg daily April 28, 2020- - Past Medical/Social History Past Medical History Cancer: Leukemia Social History Social History: No changes Smoking Status Current some day smoker Review of Systems Constitutional:: Denies: Fever, Sweats, Weight loss, Appetite change, Chills Cardiovascular:: Denies: Chest pain, Palpitations, Dyspnea on exertion, Orthopnea, PND, Shortness of breath Respiratory: Denies: Cough, Hemoptysis, Shortness of Breath, Wheezing Gastrointestinal:: Denies: Abdominal pain, Nausea, Vomiting, Diarrhea, Constipation, Hematochezia Genitourinary: Denies: Dysuria, Hematuria, 15, Flank pain Musculoskeletal:: Denies: Back pain, Myalgia, Arthralgia Skin: Denies: Rash, Skin Changes, Wounds Neurological:: Denies: Headache, Dizziness, Visual changes, Tinnitus, Hearing loss Psychiatric: Denies: Anxiety, Depression, Homicidal Ideations, Suicidal Ideations Vital Signs Temperature 98.7 F 08/25/20 12:56 Temperature Source Temporal 08/25/20 12:56 Pulse Rate 68 08/25/20 12:56 Respiratory Rate 17 08/25/20 12:56 Blood Pressure 135/87 H 08/25/20 12:56 Blood Pressure Mean 103 08/25/20 12:56 Blood Pressure Source Monitor 08/25/20 12:56 Blood Pressure Position Sitting 08/25/20 12:56 Blood Pressure Location Left Arm 08/25/20 12:56 Pulse Ox 95 08/25/20 12:56 Oxygen Delivery Method Room Air 08/25/20 12:56 - Physical Exam General: Alert, Oriented x3, No apparent distress, - - ECOG 0, overweight HEENT: Atraumatic, PERRLA, EOMI, Normocephalic Oropharynx:: Dry mucosa Neck:: Supple, Trachea midline. Negative for: JVD, bilateral Cardiac:: Regular rate, Regular rhythm, Normal S1, Normal S2. Negative for: Murmur Lungs: Clear to auscultation, Excusion symmetrical. Negative for: Rhonchi, Wheezes Abdomen:: Soft, Non-tender, Non-distended. Negative for: Hepatosplenomegaly Extremities:: Negative for: Cyanosis, Edema Neurological: Neuro grossly intact Skin:: Negative for: Lesions, Rash, Petechiae, Ecchymosis Psychiatric:: Appropriate affect, Euthymic Lymphatics:: Negative for: Cervical lymphadenopathy, Supraclavicular lymphadenopathy Laboratory Data: Laboratory Tests 04/28/20 05/05/20 05/12/20 12:25 12:36 12:40 WBC 31.4 H* 17.6 H 8.2 Hgb Hct Plt Count Absolute Neuts (auto) 05/19/20 05/25/20 06/01/20 12:35 10:50 14:20 WBC 6.2 4.3 L 4.2 L Hgb Hct Plt Count Absolute Neuts (auto) 06/15/20 07/13/20 08/10/20 13:23 10:45 09:25 WBC 5.9 6.4 5.9 Hgb 14.7 Hct 42.8 Plt Count 224 Absolute Neuts (auto) 3.3 RUN DATE: 08/25/20 [facility], DEPARTMENT OF LABORATORIES PAGE 1 RUN TIME: 1347 Specimen Inquiry [address] [place], [address] PATIENT: FREDERIC OVALLES LOC: OMD U #: [id number] : 1960 AGE/SX: 60/M FACILITY: [facility] ROOM: RE08/25/[address]: Dr. Sawyer Delgado M STATUS: REG RCR BED: DIS: SPEC #: [id number] ISAAC: 08/10/20 STATUS: COMP REQ #: [id number] RECD: 08/10/[address]: Savi Rodriguez, FERMENTER HELPER-C ENTERED: 08/10/20 [facility] DR: Dr. Jocelin Saunders, DO Dr. Sawyer Delgado MD QUERIES: Comments: BCR ABL - LC# [id number] BCR-ABL GREEN SHEP RT WB Test(s) Ordered: [id number] BCR-ABL GREEN SHEP RT WB Test Result Flag Adult Reference Range [facility] [place] LAB TEST TEST RESULT LIMITS BCR-ABL1, CML/ALL, PCR, Quant e13a2 (b2a2) transcript 0.3342 % e14a2 (b3a2) transcript % <0.0032 % e1a2 transcript % <0.0032 % Interpretation: Positive POSITIVE for the BCR-ABL1 e13a2 (b2a2, p210) fusion transcript. Director Review Dayan Davila, PhD, [facility] Director, Molecular Genetics [facility] [place], [place] Background This assay can detect three different types of BCR-ABL1 fusion transcripts associated with CML, ALL, and AML: e13a2 (previously b2a2) and e14a2 (previously b3a2) (major breakpoint, p210), as well as e1a2 (minor breakpoint, p190). The e13a2 and e14a2 transcript values are titrated to the current International Scale (IS). The standardized baseline is 100% BCR-ABL1 (IS) and major molecular response (MMR) is equivalent to 0.1% BCR-ABL1 (IS) corresponding to a 3-log reduction. Results should be correlated with appropriate clinical and laboratory information as indicated. Assessment and Plan 59-year-old male who presented with with a mature neutrophilic leukocytosis first noted January 2020, progressively worsening. He has no known chronic inflammatory or infectious diseases. BCR ABL profile with FISH is positive consistent with chronic myeloid leukemia. Bone marrow aspirate and biopsy March 2020 confirmed the diagnosis with a q BCR ABL positivity of 96.67% Started TKI therapy with dasatinib April 28, 2020, a decline in WBC/ANC is consistent with a hematologic response within the first month of treatment. Treatment is tolerated with no grade 3 or 4 toxicities. Mild elevation of liver enzymes less than 2 fold resolved and an increasing leukopenia with preserved neutrophil count noted at 4 weeks of treatment also resolved with continued standard dosing. He is showing a response to treatment with a significant decline in quantitative BCR ABL by PCR, see table below for summary of response: Date qBCR-ABL 03/30/2020 159.1086 08/10/2020 0.3342 Comorbid conditions: smoker with over 30 pack years cigarettes (started at age 18 averaging 1/2 to 1 pack of cigarettes daily), hypertension, coronary artery disease and dyslipidemia. Plan: #1-Continue dasatinib standard dose and follow-up in 12 weeks. His pretreatment left ventricular ejection fraction normal at 55% March 2020. His EKG showed normal sinus rhythm with a normal QT/QTc 392/44 ms Hepatitis serologies showed no active chronic hepatitis #2-for occasional nausea continue to use ondansetron as needed. #3-Lung cancer screening : CT of the chest April 2020 okay. #4-Follow-up with CBC, CMP and Q. BCR/ABL in 3 months. Patient was seen , impression and plan discussed. Sawyer Delgado MD Transit Driver, [facility] Divisions of Medical Oncology Hematology Department of Internal Medicine [place] [id number] This note was generated using a voice recognition system software. Although it was reviewed by the author prior to finalization, it may still contain incorrect words, spelling, and punctuation that were not noted when reviewing prior to saving. If a clinically significant typo or inaccurately typed phrase is noted, please notify the author. Medications: Prescriptions This Visit Medication Instructions Recorded Ascorbic Acid [Vitamin C] 1,000 mg PO DAILY 04/05/20 Ondansetron [Zofran] 8 mg PO Q8H PRN PRN #30 tab 05/05/20 Troy-3 Fatty Acids [Fish Oil] 1 cap PO DAILY 05/12/20 Dasatinib [Sprycel] 100 mg PO DAILY 07/13/20 Vitamin E 200 unit PO DAILY 08/25/20 Primary Care Provider: Dr. Jocelin Saunders DO Referring Provider: Dr. Jocelin Saunders DO 08/25/20 7820 <Electronically signed by Sawyer Delgado MD> Date Sawyer Delgado MD Cosigner Signature: Date (if applicable) CC: Dr. Jocelin Saunders, DO Jocelin Saunders Start: 07-13-2020 End: 07-13-2020 Oncology Visit Report Comments: See Note; NOTES: [facility] [address] [place] [id number] OFFICE VISIT Date of Service: 07/13/20 1222 MR#: [id number] Acct: [id number] Name: FREDERIC OVALLES Rep #: [id number] : 1960 From: Savi Akers Age/Sex: 60/M Location: OMD Status: Signed Subjective - Date of Service Date of Service:: 07/13/20 - Chief Complaint Chronic myeloid leukemia on treatment - History of Present Illness 60-year-old gentleman with no known chronic inflammatory or infectious diseases referred in consultation because of a persistent leukocytosis. March 2020 peripheral blood BCR ABL by FISH was positive consistent with chronic myeloid leukemia. Bone marrow aspirate and biopsy April 13, 2020: BONE MARROW DIAGNOSIS Bone marrow biopsy, clot and aspiration (specimens A-C): Hypercellular bone marrow. No stainable iron identified. No evidence of lymphoproliferative disorder. See comment. COMMENT Flow cytometry analysis reveals no increased blasts population. However, myeloid elements exhibit aberrant expression of CD56 and show left shift with down-regulation of CD10 and CD16. The findings are compatible with an underlying primary myeloid neoplasm. The flow cytometry analysis report from [facility] is reviewable in the patient???s EMR. BONE MARROW STUDY Slides are reviewed. CBC DATE: 04/13/20 WBC 22.5; RBC 5.33; HGB 15.8; HCT 48.5; MCV 91.0; RDW 48.2; PLTS 206,000 SEGS 54%; LYMPHS 23%; MONOS 11%; EOS 2%; BASOS 0% PERIPHERAL SMEAR: Submitted. RBC: Normochromic, normomorphic WBC: Neutrophilic leukocytosis with slight left shift. PLTS: Normomorphic BONE MARROW ASPIRATE DIFFERENTIAL: 200 cell count. Blasts % (normal 0-2): 2 Promyelocytes % (normal 1-5): 5 Myelocytes and metamyelocytes % (normal 17-41): 38 Bands and Segs % (normal 15-32): 26 Eos % (normal 1-6): 2 Basos % (normal 0-1): 0 Monocytes % (normal 0-4): 2 Erythroid Precursors % (normal 17-35): 18 Lymphocytes % (normal 7-13): 7 Plasma Cells % (normal 0-2): 0 ASPIRATE FINDINGS: Site: Not specified Paucispicular Cellular M/E ratio: Within normal limits (Normal 1.5 - 4.0) Megakaryocytes: Adequate Erythropoiesis: Progressive Granulopoiesis: Normoblastic CORE BIOPSY FINDINGS: Site: Not specified Adequacy: No bone present Cellularity %: Not applicable M/E ratio: Not applicable Blood Only rare marrow cell noted. ASPIRATE CLOT FINDINGS: Site: Not specified Marrow Particles: Many Cellularity %: 80% M/E ratio: Within normal limits Megakaryocytes: Adequate Granuloma(s): 0 Lymphoid aggregate(s): 0 Atypical infiltrate(s): 0 SPECIAL STAINS (with matched controls): Iron: Stainable iron not present Reticulin: Within normal limits PAS: Highlights myeloid elements and megakaryocytes. ADDENDUM FISH BCR/ABL1 REPORT FROM [facility] INTERPRETATION: BCR/ABL gene rearrangement is detected. RESULTS: BCR/ABL1 Normal Nuclei Positive Nuclei with Dual Fusion 3.33% 96.67% CYTOGENETICS REPORT FROM [facility] INTERPRETATION: Abnormal male karyotype was observed in twenty metaphases analyzed. 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 He denies any concerns related to today's visit. Reports good adherence as well as tolerance to dasatinib, citing mild fatigue. Fatigue does not interfere with his instrumental ADLs otherwise has no complaints. - Past Medical/Social History Past Medical History Cancer: Leukemia Social History Social History: No changes Smoking Status Current some day smoker Review of Systems Constitutional:: Reports: Fatigue. Denies: Fever, Sweats, Weight loss, Appetite change, Chills Cardiovascular:: Denies: Chest pain, Palpitations, Dyspnea on exertion, Orthopnea, PND, Shortness of breath Respiratory: Denies: Cough, Hemoptysis, Shortness of Breath, Wheezing Gastrointestinal:: Denies: Abdominal pain, Nausea, Vomiting, Diarrhea, Constipation, Hematochezia Genitourinary: Denies: Dysuria, Hematuria, 15, Flank pain Musculoskeletal:: Denies: Back pain, Myalgia, Arthralgia Skin: Denies: Rash, Skin Changes, Wounds Neurological:: Denies: Headache, Dizziness, Numbness, Tingling Vital Signs Temperature 98.1 F 07/13/20 11:38 Temperature Source Temporal 07/13/20 11:38 Pulse Rate 65 07/13/20 11:38 Respiratory Rate 16 07/13/20 11:38 Blood Pressure 110/70 07/13/20 11:38 Blood Pressure Mean 83 07/13/20 11:38 Blood Pressure Source Monitor 07/13/20 11:38 Blood Pressure Position Sitting 07/13/20 11:38 Blood Pressure Location Right Arm 07/13/20 11:38 Pulse Ox 97 07/13/20 11:38 Oxygen Delivery Method Room Air 07/13/20 11:38 - Physical Exam General: Alert, Oriented x3, No apparent distress HEENT: Atraumatic, PERRLA, EOMI, Normocephalic Oropharynx:: Negative for: Dry mucosa, Ulcerated lesions, White exudate Neck:: Supple, Trachea midline. Negative for: JVD, bilateral Cardiac:: Regular rate, Regular rhythm, Normal S1, Normal S2 Lungs: Clear to auscultation, Excusion symmetrical. Negative for: Rhonchi, Wheezes Abdomen:: Bowel sounds x 4, Soft, Non-tender, Non-distended. Negative for: Hepatosplenomegaly Extremities:: Negative for: Cyanosis, Edema Neurological: Neuro grossly intact Skin:: Negative for: Lesions, Rash, Petechiae, Ecchymosis Psychiatric:: Appropriate affect, Euthymic Lymphatics:: Negative for: Cervical lymphadenopathy, Supraclavicular lymphadenopathy Laboratory Data: Laboratory Tests 07/13/20 07/13/20 Range/Units 10:45 10:45 WBC 6.4 (4.4-11.0) K/mm3 RBC 4.96 (4.6-6.2) M/mm3 Hgb 15.3 (13.0-16.5) g/dL Hct 46.0 (40-54) % MCV 92.7 (80-94) fL MCH 30.8 (27.0-32.0) pg MCHC 33.3 (32-36) g/dL RDW Std Deviation 46.3 H (35.1-43.9) fl RDW Coeff of Zayra 13.6 (11.6-14.6) % Plt Count 233 (150-450) K/mm3 MPV 9.3 (6.2-12.0) fl Immature Gran % (Auto) 0.200 (0.0-0.9) % Neut % (Auto) 56.2 (47-70) % Lymph % (Auto) 28.9 (19-41) % Arroyo % (Auto) 7.5 (0-10) % Eos % (Auto) 6.4 H (0-5) % Baso % (Auto) 0.8 (0-1) % Absolute Neuts (auto) 3.6 (2.0-7.7) X10 3/uL Absolute Lymphs (auto) 1.85 (0.83-4.51) X10 3/uL Nucleated RBC % 0 (0-5) % Sodium 139 (136-145) mmol/L Potassium 3.8 (3.5-5.1) mmol/L Chloride 104 (98-107) mmol/L Carbon Dioxide 30.0 (21.0-32.0) mmol/L Anion Gap 5 (5-15) BUN 13 (7-18) mg/dL Creatinine 0.82 (0.70-1.30) mg/dL Estim Creat Clear Calc 105.15 ml/min Est GFR (MDRD) Af Amer 124 (>60) mL/min Est GFR (MDRD) Non-Af 102 (>60) mL/min BUN/Creatinine Ratio 15.9 (10-20) RATIO Glucose 118 H (74-106) mg/dL Calcium 8.9 (8.5-10.1) mg/dL Total Bilirubin 0.50 (0.20-1.00) mg/dL AST 25 (15-37) U/L ALT 39 (16-61) U/L Alkaline Phosphatase 92 (45-117) U/L Total Protein 8.0 (6.4-8.2) g/dL Albumin 4.4 (3.2-5.0) g/dL Globulin 3.6 (2.2-4.2) g/dL Albumin/Globulin Ratio 1.2 (0.9-2.4) RATIO Assessment and Plan 60-year-old male who presented with with a mature neutrophilic leukocytosis first noted January 2020, progressively worsening. He has no known chronic inflammatory or infectious diseases. BCR ABL profile with FISH is positive consistent with chronic myeloid leukemia. Bone marrow aspirate and biopsy March 2020 confirmed the diagnosis with a q BCR ABL positivity of 96.67% Started TKI therapy with dasatinib April 28, 2020, a decline in WBC/ANC is consistent with a hematologic response within the first month of treatment. Treatment is tolerated with no grade 3 or 4 toxicities. His pretreatment left ventricular ejection fraction normal at 55% March 2020. His EKG showed normal sinus rhythm with a normal QT/QTc 392/44 ms Hepatitis serologies showed no active chronic hepatitis Mild elevation of liver enzymes less than 2 fold resolved and an increasing leukopenia with preserved neutrophil count noted at 4 weeks of treatment also resolved with continued standard dosing. Comorbid conditions: smoker with over 30 pack years cigarettes (started at age 18 averaging 1/2 to 1 pack of cigarettes daily), hypertension, coronary artery disease and dyslipidemia. #1. CML???overall tolerating dasatinib well. Good adherence as well as good tolerance to oral therapy. CBC reviewed shows no cytopenias. LFTs are within normal limits, no electrolyte aberrancies. Patient is advised to continue dasatinib standard dose and follow-up in 4 weeks. BCR/ABL due July 2020. Savi Rodriguez, MSN, FILTER SCREEN CLEANER-C, AOCNP Medications: Prescriptions This Visit Medication Instructions Recorded Ascorbic Acid [Vitamin C] 1,000 mg PO DAILY 04/05/20 Vitamin E 200 unit PO DAILY 04/05/20 Ondansetron [Zofran] 8 mg PO Q8H PRN PRN #30 tab 05/05/20 Troy-3 Fatty Acids [Fish Oil] 1 cap PO DAILY 05/12/20 Dasatinib [Sprycel] 100 mg PO DAILY 07/13/20 Primary Care Provider: Dr. Jocelin Saunders DO Referring Provider: Dr. Jocelin Saunders, DO - Problem List (1) Chronic myeloid leukemia Status: Chronic 07/13/20 1226 <Electronically signed by Savi Rodriguez FERMENTER HELPER FERMENTER HELPER-C> Date Savi UngerMichael FERMENTER HELPER FERMENTER HELPER-C Cosigner Signature: Date (if applicable) CC: Jocelin Saunders Start: 06-15-2020 End: 06-15-2020 Oncology Visit Report Comments: See Note; NOTES: [facility] [address] [place] [address] OFFICE VISIT Date of Service: 06/15/20 1343 MR#: [id number] Acct: [id number] Name: FREDERIC OVALLES Rep #: [id number] : 1960 From: Sawyer Delgado MD Age/Sex: 59/M Location: OMD Status: Signed - Problem List (1) Chronic myeloid leukemia Status: Chronic - Date of Service Date of Service:: 06/15/20 - Chief Complaint Chronic myeloid leukemia on treatment - History of Present Illness 59-year-old gentleman with no known chronic inflammatory or infectious diseases referred in consultation because of a persistent leukocytosis. March 2020 peripheral blood BCR ABL by FISH was positive consistent with chronic myeloid leukemia. Bone marrow aspirate and biopsy April 13, 2020: BONE MARROW DIAGNOSIS Bone marrow biopsy, clot and aspiration (specimens A-C): Hypercellular bone marrow. No stainable iron identified. No evidence of lymphoproliferative disorder. See comment. COMMENT Flow cytometry analysis reveals no increased blasts population. However, myeloid elements exhibit aberrant expression of CD56 and show left shift with down-regulation of CD10 and CD16. The findings are compatible with an underlying primary myeloid neoplasm. The flow cytometry analysis report from [facility] is reviewable in the patient???s EMR. BONE MARROW STUDY Slides are reviewed. CBC DATE: 04/13/20 WBC 22.5; RBC 5.33; HGB 15.8; HCT 48.5; MCV 91.0; RDW 48.2; PLTS 206,000 SEGS 54%; LYMPHS 23%; MONOS 11%; EOS 2%; BASOS 0% PERIPHERAL SMEAR: Submitted. RBC: Normochromic, normomorphic WBC: Neutrophilic leukocytosis with slight left shift. PLTS: Normomorphic BONE MARROW ASPIRATE DIFFERENTIAL: 200 cell count. Blasts % (normal 0-2): 2 Promyelocytes % (normal 1-5): 5 Myelocytes and metamyelocytes % (normal 17-41): 38 Bands and Segs % (normal 15-32): 26 Eos % (normal 1-6): 2 Basos % (normal 0-1): 0 Monocytes % (normal 0-4): 2 Erythroid Precursors % (normal 17-35): 18 Lymphocytes % (normal 7-13): 7 Plasma Cells % (normal 0-2): 0 ASPIRATE FINDINGS: Site: Not specified Paucispicular Cellular M/E ratio: Within normal limits (Normal 1.5 - 4.0) Megakaryocytes: Adequate Erythropoiesis: Progressive Granulopoiesis: Normoblastic CORE BIOPSY FINDINGS: Site: Not specified Adequacy: No bone present Cellularity %: Not applicable M/E ratio: Not applicable Blood Only rare marrow cell noted. ASPIRATE CLOT FINDINGS: Site: Not specified Marrow Particles: Many Cellularity %: 80% M/E ratio: Within normal limits Megakaryocytes: Adequate Granuloma(s): 0 Lymphoid aggregate(s): 0 Atypical infiltrate(s): 0 SPECIAL STAINS (with matched controls): Iron: Stainable iron not present Reticulin: Within normal limits PAS: Highlights myeloid elements and megakaryocytes. ADDENDUM FISH BCR/ABL1 REPORT FROM [facility] INTERPRETATION: BCR/ABL gene rearrangement is detected. RESULTS: BCR/ABL1 Normal Nuclei Positive Nuclei with Dual Fusion 3.33% 96.67% CYTOGENETICS REPORT FROM [facility] INTERPRETATION: Abnormal male karyotype was observed in twenty metaphases analyzed. 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 Denies: Abdominal pain, Nausea, Vomiting, Diarrhea, Constipation, Hematochezia Genitourinary: Denies: Dysuria, Hematuria, 15, Flank pain Musculoskeletal:: Denies: Back pain, Myalgia, Arthralgia Skin: Denies: Rash, Skin Changes, Wounds Neurological:: Denies: Headache, Dizziness, Visual changes, Tinnitus, Hearing loss Psychiatric: Denies: Anxiety, Depression, Homicidal Ideations, Suicidal Ideations Vital Signs Temperature 98.7 F 06/01/20 14:55 Temperature Source Temporal 06/01/20 14:55 Pulse Rate 84 06/01/20 14:55 Respiratory Rate 20 H 06/01/20 14:55 Blood Pressure 116/75 06/01/20 14:55 Blood Pressure Mean 88 06/01/20 14:55 Blood Pressure Source Monitor 06/01/20 14:55 Blood Pressure Position Sitting 06/01/20 14:55 Blood Pressure Location Left Arm 06/01/20 14:55 Pulse Ox 95 06/01/20 14:55 Oxygen Delivery Method Room Air 06/01/20 14:55 - Physical Exam General: Alert, Oriented x3, No apparent distress, - - ECOG 0-1 HEENT: Atraumatic, PERRLA, EOMI, Normocephalic Oropharynx:: Dry mucosa Neck:: Supple, Trachea midline. Negative for: JVD, bilateral Cardiac:: Regular rate, Regular rhythm, Normal S1, Normal S2. Negative for: Murmur Lungs: Clear to auscultation, Diminished, Excusion symmetrical. Negative for: Rhonchi, Wheezes Abdomen:: Soft, Non-tender, Non-distended Extremities:: Negative for: Cyanosis, Edema Neurological: Neuro grossly intact Skin:: Negative for: Lesions, Rash, Petechiae, Ecchymosis Psychiatric:: Appropriate affect, Euthymic Lymphatics:: Negative for: Cervical lymphadenopathy, Supraclavicular lymphadenopathy Laboratory Data: Laboratory Tests 06/15/20 Range/Units 13:23 WBC 5.9 (4.4-11.0) K/mm3 RBC 4.62 (4.6-6.2) M/mm3 Hgb 14.3 (13.0-16.5) g/dL Hct 43.4 (40-54) % MCV 93.9 (80-94) fL MCH 31.0 (27.0-32.0) pg MCHC 32.9 (32-36) g/dL RDW Std Deviation 48.3 H (35.1-43.9) fl RDW Coeff of Zayra 14.1 (11.6-14.6) % Plt Count 246 (150-450) K/mm3 MPV 9.2 (6.2-12.0) fl Immature Gran % (Auto) 0.200 (0.0-0.9) % Neut % (Auto) 60.6 (47-70) % Lymph % (Auto) 26.0 (19-41) % Arroyo % (Auto) 8.3 (0-10) % Eos % (Auto) 4.1 (0-5) % Baso % (Auto) 0.8 (0-1) % Absolute Neuts (auto) 3.6 (2.0-7.7) X10 3/uL Absolute Lymphs (auto) 1.54 (0.83-4.51) X10 3/uL Nucleated RBC % 0 (0-5) % Laboratory Tests 03/07/20 04/28/20 05/05/20 14:42 12:25 12:36 AST 32 29 42 H ALT 51 45 81 H 05/12/20 05/19/20 05/20/20 12:40 12:35 12:32 AST 35 42 H 41 H ALT 65 H 81 H 80 H 05/25/20 06/01/20 06/15/20 10:50 14:20 13:23 AST 31 29 31 ALT 70 H 62 H 53 Assessment and Plan 59-year-old male who presented with with a mature neutrophilic leukocytosis first noted January 2020, progressively worsening. He has no known chronic inflammatory or infectious diseases. BCR ABL profile with FISH is positive consistent with chronic myeloid leukemia. Bone marrow aspirate and biopsy March 2020 confirmed the diagnosis with a q BCR ABL positivity of 96.67% Started TKI therapy with dasatinib April 28, 2020, a decline in WBC/ANC is consistent with a hematologic response within the first month of treatment. Treatment is tolerated with no grade 3 or 4 toxicities. Mild elevation of liver enzymes less than 2 fold resolved and an increasing leukopenia with preserved neutrophil count noted at 4 weeks of treatment also resolved with continued standard dosing. Comorbid conditions: smoker with over 30 pack years cigarettes (started at age 18 averaging 1/2 to 1 pack of cigarettes daily), hypertension, coronary artery disease and dyslipidemia. Plan: #1-Continue dasatinib standard dose and follow-up in 4 weeks. His pretreatment left ventricular ejection fraction normal at 55% March 2020. His EKG showed normal sinus rhythm with a normal QT/QTc 392/44 ms Hepatitis serologies showed no active chronic hepatitis #2-for occasional nausea continue to use ondansetron as needed. #3-Lung cancer screening : CT of the chest April 2020. #4-Q. BCR/ABL due July 2020. Patient was seen , impression and plan discussed. Sawyer Delgado MD Transit Driver, [facility] Divisions of Medical Oncology Hematology Department of Internal Medicine [place] [id number] This note was generated using a voice recognition system software. Although it was reviewed by the author prior to finalization, it may still contain incorrect words, spelling, and punctuation that were not noted when reviewing prior to saving. If a clinically significant typo or inaccurately typed phrase is noted, please notify the author. Medications: Prescriptions This Visit Medication Instructions Recorded Ascorbic Acid [Vitamin C] 1,000 mg PO DAILY 04/05/20 Vitamin E 200 unit PO DAILY 04/05/20 Ondansetron [Zofran] 8 mg PO Q8H PRN PRN #30 tab 05/05/20 Troy-3 Fatty Acids [Fish Oil] 1 cap PO DAILY 05/12/20 Primary Care Provider: Dr. Jocelin Saunders DO Referring Provider: Dr. Jocelin Saunders DO 06/15/20 1403 <Electronically signed by Sawyer Delgado MD> Date Sawyer Delgado MD Cosigner Signature: Date (if applicable) CC: Dr. DO Jocelin Wilson Start: 06-01-2020 End: 06-01-2020 Oncology Visit Report Comments: See Note; NOTES: [facility] [place] [address] OFFICE VISIT Date of Service: 06/01/20 1433 MR#: [id number] Acct: [id number] Name: FREDERIC OVALLES Rep #: [id number] : 1960 From: Sawyer Delagdo MD Age/Sex: 59/M Location: OMD Status: Signed - Problem List (1) Chronic myeloid leukemia Status: Chronic - Date of Service Date of Service:: 06/01/20 - Chief Complaint Chronic myeloid leukemia on treatment - History of Present Illness 59-year-old gentleman with no known chronic inflammatory or infectious diseases referred in consultation because of a persistent leukocytosis. March 2020 peripheral blood BCR ABL by FISH was positive consistent with chronic myeloid leukemia. Bone marrow aspirate and biopsy April 13, 2020: BONE MARROW DIAGNOSIS Bone marrow biopsy, clot and aspiration (specimens A-C): Hypercellular bone marrow. No stainable iron identified. No evidence of lymphoproliferative disorder. See comment. COMMENT Flow cytometry analysis reveals no increased blasts population. However, myeloid elements exhibit aberrant expression of CD56 and show left shift with down-regulation of CD10 and CD16. The findings are compatible with an underlying primary myeloid neoplasm. The flow cytometry analysis report from [facility] is reviewable in the patient???s EMR. BONE MARROW STUDY Slides are reviewed. CBC DATE: 04/13/20 WBC 22.5; RBC 5.33; HGB 15.8; HCT 48.5; MCV 91.0; RDW 48.2; PLTS 206,000 SEGS 54%; LYMPHS 23%; MONOS 11%; EOS 2%; BASOS 0% PERIPHERAL SMEAR: Submitted. RBC: Normochromic, normomorphic WBC: Neutrophilic leukocytosis with slight left shift. PLTS: Normomorphic BONE MARROW ASPIRATE DIFFERENTIAL: 200 cell count. Blasts % (normal 0-2): 2 Promyelocytes % (normal 1-5): 5 Myelocytes and metamyelocytes % (normal 17-41): 38 Bands and Segs % (normal 15-32): 26 Eos % (normal 1-6): 2 Basos % (normal 0-1): 0 Monocytes % (normal 0-4): 2 Erythroid Precursors % (normal 17-35): 18 Lymphocytes % (normal 7-13): 7 Plasma Cells % (normal 0-2): 0 ASPIRATE FINDINGS: Site: Not specified Paucispicular Cellular M/E ratio: Within normal limits (Normal 1.5 - 4.0) Megakaryocytes: Adequate Erythropoiesis: Progressive Granulopoiesis: Normoblastic CORE BIOPSY FINDINGS: Site: Not specified Adequacy: No bone present Cellularity %: Not applicable M/E ratio: Not applicable Blood Only rare marrow cell noted. ASPIRATE CLOT FINDINGS: Site: Not specified Marrow Particles: Many Cellularity %: 80% M/E ratio: Within normal limits Megakaryocytes: Adequate Granuloma(s): 0 Lymphoid aggregate(s): 0 Atypical infiltrate(s): 0 SPECIAL STAINS (with matched controls): Iron: Stainable iron not present Reticulin: Within normal limits PAS: Highlights myeloid elements and megakaryocytes. ADDENDUM FISH BCR/ABL1 REPORT FROM [facility] INTERPRETATION: BCR/ABL gene rearrangement is detected. RESULTS: BCR/ABL1 Normal Nuclei Positive Nuclei with Dual Fusion 3.33% 96.67% CYTOGENETICS REPORT FROM [facility] INTERPRETATION: Abnormal male karyotype was observed in twenty metaphases analyzed. 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] Treatment: Dasatinib 100 mg daily April 28, 2020- - Past Medical/Social History Social History Social History: No changes Smoking Status Current some day smoker Review of Systems Constitutional:: Denies: Fever, Sweats, Weight loss, Appetite change, Chills Cardiovascular:: Denies: Chest pain, Palpitations, Dyspnea on exertion, Orthopnea, PND, Shortness of breath Respiratory: Denies: Cough, Hemoptysis, Shortness of Breath, Wheezing Gastrointestinal:: Denies: Abdominal pain, Nausea, Vomiting, Diarrhea, Constipation, Hematochezia Genitourinary: Denies: Dysuria, Hematuria, 15, Flank pain Musculoskeletal:: Denies: Back pain, Myalgia, Arthralgia Skin: Denies: Rash, Skin Changes, Wounds Neurological:: Denies: Headache, Dizziness, Visual changes, Tinnitus, Hearing loss Psychiatric: Denies: Anxiety, Depression, Homicidal Ideations, Suicidal Ideations Vital Signs Temperature 98.2 F 05/25/20 11:28 Temperature Source Temporal 05/25/20 11:28 Pulse Rate 80 05/25/20 11:28 Respiratory Rate 20 H 05/25/20 11:28 Blood Pressure 118/76 05/25/20 11:28 Blood Pressure Mean 90 05/25/20 11:28 Blood Pressure Source Monitor 05/25/20 11:28 Blood Pressure Position Sitting 05/25/20 11:28 Blood Pressure Location Left Arm 05/25/20 11:28 Pulse Ox 96 05/25/20 11:28 Oxygen Delivery Method Room Air 05/25/20 11:28 - Physical Exam General: Alert, Oriented x3, No apparent distress, - - Rosen 0-1 HEENT: Atraumatic, PERRLA, EOMI, Normocephalic Oropharynx:: Dry mucosa Neck:: Supple, Trachea midline. Negative for: JVD, bilateral Cardiac:: Regular rate, Regular rhythm, Normal S1, Normal S2. Negative for: Murmur Lungs: Clear to auscultation, Excusion symmetrical. Negative for: Rhonchi, Wheezes Abdomen:: Soft, Non-tender, Non-distended Extremities:: Negative for: Cyanosis, Edema Neurological: Neuro grossly intact Skin:: Lesions - Scratch cooper on hands and forearms (from puppy). Negative for: Rash, Petechiae, Ecchymosis Psychiatric:: Appropriate affect, Euthymic Lymphatics:: Negative for: Cervical lymphadenopathy, Supraclavicular lymphadenopathy Laboratory Data: Laboratory Tests 06/01/20 Range/Units 14:20 WBC 4.2 L (4.4-11.0) K/mm3 RBC 4.33 L (4.6-6.2) M/mm3 Hgb 13.3 (13.0-16.5) g/dL Hct 40.1 (40-54) % MCV 92.6 (80-94) fL MCH 30.7 (27.0-32.0) pg MCHC 33.2 (32-36) g/dL RDW Std Deviation 47.7 H (35.1-43.9) fl RDW Coeff of Zayra 13.9 (11.6-14.6) % Plt Count 252 (150-450) K/mm3 MPV 9.2 (6.2-12.0) fl Immature Gran % (Auto) 0.000 (0.0-0.9) % Neut % (Auto) 50.8 (47-70) % Lymph % (Auto) 29.8 (19-41) % Arroyo % (Auto) 10.0 (0-10) % Eos % (Auto) 8.4 H (0-5) % Baso % (Auto) 1.0 (0-1) % Absolute Neuts (auto) 2.1 (2.0-7.7) X10 3/uL Absolute Lymphs (auto) 1.25 (0.83-4.51) X10 3/uL Nucleated RBC % 0 (0-5) % Laboratory Tests 04/28/20 05/05/20 05/12/20 12:25 12:36 12:40 WBC 31.4 H* 17.6 H 8.2 Hgb Plt Count Absolute Neuts (auto) 19.4 H 11.4 H 5.4 05/19/20 05/25/20 06/01/20 12:35 10:50 14:20 WBC 6.2 4.3 L 4.2 L Hgb 13.3 Plt Count 252 Absolute Neuts (auto) 3.8 2.2 2.1 Assessment and Plan 59-year-old male who presented with with a mature neutrophilic leukocytosis first noted January 2020, progressively worsening. He has no known chronic inflammatory or infectious diseases. BCR ABL profile with FISH is positive consistent with chronic myeloid leukemia. Bone marrow aspirate and biopsy March 2020 confirmed the diagnosis with a q BCR ABL positivity of 96.67% Started TKI therapy with dasatinib April 28, 2020, a decline in WBC/ANC is consistent with a hematologic response within the first month of treatment. Treatment is tolerated with no grade 3 or 4 toxicities. Mild elevation of liver enzymes less than 2 fold is being watched and an increasing leukopenia with preserved neutrophil count noted since 4 weeks of treatment. Comorbid conditions: smoker with over 30 pack years cigarettes (started at age 18 averaging 1/2 to 1 pack of cigarettes daily), hypertension, coronary artery disease and dyslipidemia. Plan: #1-Continue dasatinib standard dose and continue close monitoring in 2 weeks. Dose adjustment is not indicated at this level. His pretreatment left ventricular ejection fraction normal at 55% March 2020. His EKG showed normal sinus rhythm with a normal QT/QTc 392/44 ms Hepatitis serologies showed no active chronic hepatitis #2-for occasional nausea continue to use ondansetron as needed. #3-Lung cancer screening : CT of the chest April 2020. Patient was seen , impression and plan discussed. Sawyer Delgado MD Transit Driver, [facility] Divisions of Medical Oncology Hematology Department of Internal Medicine [place] [phone] This note was generated using a voice recognition system software. Although it was reviewed by the author prior to finalization, it may still contain incorrect words, spelling, and punctuation that were not noted when reviewing prior to saving. If a clinically significant typo or inaccurately typed phrase is noted, please notify the author. Medications: Prescriptions This Visit Medication Instructions Recorded Ascorbic Acid [Vitamin C] 1,000 mg PO DAILY 04/05/20 Vitamin E 200 unit PO DAILY 04/05/20 Ondansetron [Zofran] 8 mg PO Q8H PRN PRN #30 tab 05/05/20 Troy-3 Fatty Acids [Fish Oil] 1 cap PO DAILY 05/12/20 Primary Care Provider: Dr. Jocelin Saunders DO Referring Provider: Dr. Jocelin Saunders DO 06/01/20 1508 <Electronically signed by Sawyer Delgado MD> Date Sawyer Delgado MD Cosigner Signature: Date (if applicable) CC: Jocelin Saunders Start: 05-25-2020 End: 05-25-2020 Oncology Visit Report Comments: See Note; NOTES: [place] [id number] OFFICE VISIT Date of Service: 05/25/20 1045 MR#: [id number] Acct: [id number] Name: FREDERIC OVALLES Rep #: [id number] : 1960 From: Sawyer Delgado MD Age/Sex: 59/M Location: OMD Status: Signed - Problem List (1) Chronic myeloid leukemia Status: Chronic - Date of Service Date of Service:: 05/25/20 - Chief Complaint Chronic myeloid leukemia on treatment - History of Present Illness 59-year-old gentleman with no known chronic inflammatory or infectious diseases referred in consultation because of a persistent leukocytosis. March 2020 peripheral blood BCR ABL by FISH was positive consistent with chronic myeloid leukemia. Bone marrow aspirate and biopsy April 13, 2020: BONE MARROW DIAGNOSIS Bone marrow biopsy, clot and aspiration (specimens A-C): Hypercellular bone marrow. No stainable iron identified. No evidence of lymphoproliferative disorder. See comment. COMMENT Flow cytometry analysis reveals no increased blasts population. However, myeloid elements exhibit aberrant expression of CD56 and show left shift with down-regulation of CD10 and CD16. The findings are compatible with an underlying primary myeloid neoplasm. The flow cytometry analysis report from [facility] is reviewable in the patient???s EMR. BONE MARROW STUDY Slides are reviewed. CBC DATE: 04/13/20 WBC 22.5; RBC 5.33; HGB 15.8; HCT 48.5; MCV 91.0; RDW 48.2; PLTS 206,000 SEGS 54%; LYMPHS 23%; MONOS 11%; EOS 2%; BASOS 0% PERIPHERAL SMEAR: Submitted. RBC: Normochromic, normomorphic WBC: Neutrophilic leukocytosis with slight left shift. PLTS: Normomorphic BONE MARROW ASPIRATE DIFFERENTIAL: 200 cell count. Blasts % (normal 0-2): 2 Promyelocytes % (normal 1-5): 5 Myelocytes and metamyelocytes % (normal 17-41): 38 Bands and Segs % (normal 15-32): 26 Eos % (normal 1-6): 2 Basos % (normal 0-1): 0 Monocytes % (normal 0-4): 2 Erythroid Precursors % (normal 17-35): 18 Lymphocytes % (normal 7-13): 7 Plasma Cells % (normal 0-2): 0 ASPIRATE FINDINGS: Site: Not specified Paucispicular Cellular M/E ratio: Within normal limits (Normal 1.5 - 4.0) Megakaryocytes: Adequate Erythropoiesis: Progressive Granulopoiesis: Normoblastic CORE BIOPSY FINDINGS: Site: Not specified Adequacy: No bone present Cellularity %: Not applicable M/E ratio: Not applicable Blood Only rare marrow cell noted. ASPIRATE CLOT FINDINGS: Site: Not specified Marrow Particles: Many Cellularity %: 80% M/E ratio: Within normal limits Megakaryocytes: Adequate Granuloma(s): 0 Lymphoid aggregate(s): 0 Atypical infiltrate(s): 0 SPECIAL STAINS (with matched controls): Iron: Stainable iron not present Reticulin: Within normal limits PAS: Highlights myeloid elements and megakaryocytes. ADDENDUM FISH BCR/ABL1 REPORT FROM [facility] INTERPRETATION: BCR/ABL gene rearrangement is detected. RESULTS: BCR/ABL1 Normal Nuclei Positive Nuclei with Dual Fusion 3.33% 96.67% CYTOGENETICS REPORT FROM [facility] INTERPRETATION: Abnormal male karyotype was observed in twenty metaphases analyzed. 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 Denies: Fever, Sweats, Appetite change, Chills Cardiovascular:: Denies: Chest pain, Palpitations, Dyspnea on exertion, Orthopnea, PND, Shortness of breath Respiratory: Denies: Cough, Hemoptysis, Shortness of Breath, Wheezing Gastrointestinal:: Denies: Abdominal pain, Nausea, Vomiting, Diarrhea, Constipation, Hematochezia Genitourinary: Denies: Dysuria, Hematuria, 15, Flank pain Musculoskeletal:: Denies: Back pain, Myalgia, Arthralgia Skin: Denies: Rash, Skin Changes, Wounds Neurological:: Denies: Headache, Dizziness, Visual changes, Tinnitus, Hearing loss Psychiatric: Denies: Anxiety, Depression, Homicidal Ideations, Suicidal Ideations Selected Entries 05/25/20 11:28 Temperature 98.2 F Pulse Rate 80 Respiratory Rate 20 H Blood Pressure 118/76 Blood Pressure Mean 90 Pulse Ox 96 - Physical Exam General: Alert, Oriented x3, No apparent distress, - - ECOG 0, overweight HEENT: Atraumatic, PERRLA, EOMI, Normocephalic Oropharynx:: Dry mucosa Neck:: Supple, Trachea midline. Negative for: JVD, bilateral Cardiac:: Regular rate, Regular rhythm, Normal S1, Normal S2. Negative for: Murmur Lungs: Clear to auscultation, Excusion symmetrical. Negative for: Rhonchi, Wheezes Abdomen:: Soft, Non-tender, Non-distended Extremities:: Negative for: Cyanosis, Edema Neurological: Neuro grossly intact Skin:: Negative for: Lesions, Rash, Petechiae, Ecchymosis Psychiatric:: Appropriate affect, Euthymic Lymphatics:: Negative for: Cervical lymphadenopathy, Supraclavicular lymphadenopathy Laboratory Data: Laboratory Tests 04/28/20 04/28/20 05/05/20 12:25 12:25 12:36 WBC 31.4 H* 17.6 H Hgb Plt Count Absolute Neuts (auto) ALT 45 05/05/20 05/12/20 05/12/20 12:36 12:40 12:40 WBC 8.2 Hgb Plt Count Absolute Neuts (auto) ALT 81 H 65 H 05/19/20 05/19/20 05/20/20 12:35 12:35 12:32 WBC 6.2 Hgb Plt Count Absolute Neuts (auto) ALT 81 H 80 H 05/25/20 05/25/20 10:50 10:50 WBC 4.3 L Hgb 14.5 Plt Count 270 Absolute Neuts (auto) 2.2 ALT 70 H Assessment and Plan 59-year-old male who presented with with a mature neutrophilic leukocytosis first noted January 2020, progressively worsening. He has no known chronic inflammatory or infectious diseases. BCR ABL profile with FISH is positive consistent with chronic myeloid leukemia. Bone marrow aspirate and biopsy March 2020 confirmed the diagnosis with a q BCR ABL positivity of 96.67% Started TKI therapy with dasatinib April 28, 2020, a decline in WBC/ANC is consistent with a hematologic response within the first month of treatment. Treatment is tolerated with no grade 3 or 4 toxicities. Mild elevation of liver enzymes less than 2 fold is being watched and a mild leukocytosis with preserved neutrophil count noted on 4 weeks of treatment. Comorbid conditions: smoker with over 30 pack years cigarettes (started at age 18 averaging 1/2 to 1 pack of cigarettes daily), hypertension, coronary artery disease and dyslipidemia. Plan: #1-Continue dasatinib on April 28, 2020. Follow-up in 1 week. His pretreatment left ventricular ejection fraction normal at 55% March 2020. His EKG showed normal sinus rhythm with a normal QT/QTc 392/44 ms Hepatitis serologies showed no active chronic hepatitis #2-for occasional nausea continue to use ondansetron as needed. #3-refered to lung cancer screening register and smoking cessation discussed. Screening CT of the chest April 2020. Patient was seen , impression and plan discussed. Sawyer Delgado MD Transit Driver, [facility] Divisions of Medical Oncology Hematology Department of Internal Medicine [facility] [place] [phone] This note was generated using a voice recognition system software. Although it was reviewed by the author prior to finalization, it may still contain incorrect words, spelling, and punctuation that were not noted when reviewing prior to saving. If a clinically significant typo or inaccurately typed phrase is noted, please notify the author. Medications: Prescriptions This Visit Medication Instructions Recorded Ascorbic Acid [Vitamin C] 1,000 mg PO DAILY 04/05/20 Vitamin E 200 unit PO DAILY 04/05/20 Ondansetron [Zofran] 8 mg PO Q8H PRN PRN #30 tab 05/05/20 Troy-3 Fatty Acids [Fish Oil] 1 cap PO DAILY 05/12/20 Primary Care Provider: Dr. Jocelin Saunders DO Referring Provider: Dr. Jocelin Saunders DO 05/25/20 1138 <Electronically signed by Sawyer Delgado MD> Date Sawyer Delgado MD Cosigner Signature: Date (if applicable) CC: Jocelin Saunders Start: 05-20-2020 End: 05-20-2020 Cardiology Visit Report Comments: See Note; NOTES: [facility] [address] [place] [address]. [address] [place] [phone] OFFICE VISIT Date of Service: 05/20/20 MR#: [id number] Acct: [id number] Name: FREDERIC OVALLES Rep #: [id number] : 1960 Provider: Dr. Hector Hsu MD Age/Sex: 59/M Location: [facility] Status: Signed HPI HPI History of Present Illness Details: This is a 59-year-old gentleman that presents here today for an initial cardio oncology visit. He has a history of coronary artery disease with myocardial infarction in 2017 with 2 stents placed at that time. One was in the proximal left anterior descending artery and the other was in the mid right coronary artery. He also has a history of hypertension, hyperlipidemia. He had undergone a stress test in 2019 which was preoperative for hernia surgery. He did well with that. He tells me that he has recently been diagnosed with chronic myeloid leukemia and has been on dasatinib which was started in April which she has tolerated well. His echocardiographic findings prior to this demonstrated an ejection fraction of 55% with a global longitudinal strain of 18.1. From a cardiac standpoint, patient is doing well. He does not have any chest discomfort/heaviness/tightness . His exercise tolerance is stable for his age. He does not have any worsening symptoms of shortness of breath. He does get SOB with exertional activity but it would be what he would expect. He denies any PND. He does not have any orthopnea. He does not have any symptoms of congestive heart failure. He does not have any palpitations that he is aware of. He does not have any lightheadedness or dizziness. He does not have any near-syncope or syncope. He tells me that he has been having some issues with excessive sweating and he does not know the etiology. He has gained some weight to this last year. He does not have any lower extremity edema. He does not have any symptoms of claudication. His physical exam demonstrated clear lung osuna regular rate and rhythm and no pedal edema Intake Vital Signs 05/20/20 Height 6 ft 05/20/20 Weight: 236 lb 05/20/20 BMI 32.0 05/20/20 BP 121/80 H 05/20/20 Respiration 16 05/20/20 Pulse 76 05/20/20 Pulse Oximetry (%) 96 Intake Visit Reasons: establish with Cardio-Onc clinic Allergies No Known Allergies Allergy (Verified 05/20/20 09:31) Medications aspirin 81 mg tablet,delayed release 81 mg PO DAILY 09/02/18 [History Confirmed 05/20/20] carvedilol 6.25 mg tablet 6.25 mg PO BID 09/02/18 [History Confirmed 05/20/20] cholecalciferol (vitamin D3) 25 mcg (1,000 unit) capsule 1,000 unit PO DAILY 09/02/18 [History Confirmed 05/20/20] ramipril 2.5 mg capsule 2.5 mg PO DAILY 09/02/18 [History Confirmed 05/20/20] atorvastatin 80 mg tablet 80 mg PO QHS tab 12/15/19 [History Confirmed 05/20/20] Ascorbic Acid [Vitamin C] 1,000 mg PO DAILY 04/05/20 [History Confirmed 05/20/20] Vitamin E 200 unit PO DAILY 04/05/20 [History Confirmed 05/20/20] Ondansetron [Zofran] 8 mg PO Q8H PRN PRN #30 tab 05/05/20 [Rx Confirmed 05/20/20] Troy-3 Fatty Acids [Fish Oil] 1 cap PO DAILY 05/12/20 [History Confirmed 05/20/20] Ejection fraction %: 55 to 59 PFSH Medical History Atherosclerosis of coronary artery of [place] heart without angina pectoris (Chronic) History of ST elevation myocardial infarction (STEMI) (Resolved 01/2017) Old anterior wall myocardial infarction (Chronic) Essential (primary) hypertension (Chronic) Hyperlipidemia (Chronic) Fatigue (Acute) Fracture of great toe, right, open (Acute) Leukocytosis (Acute) Near syncope (Acute) Unspecified injury of right foot, sequela (Acute) History of back problems (Chronic) Nicotine dependence (Chronic) Obesity (BMI 30.0-34.9) (Chronic) Hiatal hernia with GERD (Resolved) Surgical History History of coronary artery stent placement (Resolved 01/2017) History of bilateral inguinal hernia repair (Resolved 08/2018) History of bone marrow biopsy (Resolved 04/13/20) Status post laparoscopic Migue fundoplication (Resolved 10/15/18) Family History Father Colon cancer Diabetes Heart disease Hypertension CAD (coronary artery disease) Sister Breast cancer Mother CAD (coronary artery disease) Hypertension Heart disease Social History (Updated 05/20/20 @ 12:[address] Hector Hsu MD) Smoking Status: Current some day smoker ROS Const Const: Negative for fatigue, weakness, headache(s), frequent falls, difficulty sleeping or excessive sweating Eyes Eyes: Negative for loss of peripheral vision, transient loss of vision, blurry vision, double vision or tunnel vision ENT ENT: Negative for headache(s), dizziness, Nosebleed/epistaxis or balance problems Cardio Chest Pain: No Palpitations: No Edema: None Muscle aches with walking: None Resp Respiratory: Positive for other (diminished); negative for SOB with activity, SOB at rest, SOB orthopnea SOB lying down, Cough or paroxysmal nocturnal dyspnea GI GI: Negative nausea, vomiting, heartburn or black,tarry stools : Negative for hematuria Musc Musc: Negative for muscle aches/ myalgia, muscle weakness, joint pain or balance problems Skin Skin: Negative non-healing lesions, rash or unusual bruising Neuro Neuro: Negative for dizziness, lightheadedness, near syncope, syncope, orthostatic symptoms, frequent falls, headache(s), weakness, blurry vision, double vision or lack of coordination Reynaldo Hematologic/Lymphatic: Negative for easy bleeding or easy bruising Endo Endo: Negative for fatigue, excessive sweating or increased thirst/drinking Psych Psych: Negative for anxiety or depression Allergy Allergy/Immunology: Negative for hives, Negative for rash Cardiology Exam Const Appearance: cooperative, healthy appearing, no acute distress, well developed and well groomed Nutritional Appearance: average body habitus and well nourished Orientation: alert, awake and oriented x3 Head Head: normal to inspection, normocephalic and atraumatic Ears: hearing grossly normal bilaterally and external ears normal Nose: external nose normal, nares normal, nasal mucous membranes and turbinates normal, septum normal, no nasal discharge Face and Sinus: face symmetric Mouth: oral mucosae normal, tongue normal, oropharynx normal and moist mucous membranes Teeth and gingiva: dentition normal Throat: posterior oropharynx normal, tonsils normal and uvula midline Eyes General: appearance normal, both eyes and all related structures Eyelids: eyelids normal Conjunctivae: conjunctivae normal Pupils: PERRL, normal by confrontation and accommodation normal EOM: EOM intact bilaterally Neck Neck: normal visual inspection, trachea midline and no JVD JVD: +5 Carotids: normal carotid upstroke and bounding pulses Chest Chest inspection: normal inspection of the chest, symmetric chest movement and normal respiratory effort Auscultation: Bilateral: Clear to Auscultation Cardio Palpation: normal PMI Rate: regular rate Rhythm: regular rhythm Heart sounds: S1 normal, S2 normal and normal, physiologic split S2; negative rub, gallop or murmur GI GI: normal to inspection, soft, no hepatosplenomegaly and bowel sounds present Neuro General: alert, awake, oriented x3, gait normal, moves all extremities and no focal sensory deficit Skin Skin: no rashes or lesions noted Extremities Pulses: Normal: Right Femoral Pulse, Left Femoral Pulse, Right Dorsalis Pedis Pulse, Left Dorsalis Pedis Pulse, Right Posterior Tibial Pulse, Left Posterior Tibial Pulse, Right Radial Pulse, Left Radial Pulse Lower Extremity Edema: None: Bilateral Musculoskel Musculoskeletal: No joint tenderness Psych Psychological: normal affect Assessment Plan 1. Atherosclerosis of [place] coronary artery of [place] heart without angina pectoris I25.10 Plan He does have a history of atherosclerotic cardiovascular disease with known stenting of the proximal left anterior descending artery in the mid right coronary artery. He continues to do well he had a stress test as noted above with no evidence of ischemia in 2019 my recommendation be to continue the same. Orders Orders: 12 Lead EKG performed by [facility] Today Dr. Hector Hsu MD Lipid Profile Today Dr. Hector Hsu MD Referrals: Cardiology Savi Rodriguez NP, FERMENTER HELPER-C 2. Chronic myeloid leukemia C92.10 Plan He does have a history of chronic myeloid leukemia currently on dasatinib he appears to be tolerating that quite well. The major anticipated complication is cardiac arrhythmias with QT prolongation. His last QT on his EKG was noted to be 392 ms. We will continue to follow the above. Orders Orders: 12 Lead EKG performed by [facility] Today Dr. Hector Hsu MD Referrals: Cardiology Savi Rodriguez NP, FERMENTER HELPER-C 3. Essential (primary) hypertension I10 Plan He does have a history of hypertension which is well controlled on his current medical therapy and I would not recommend we make any changes. Orders Orders: 12 Lead EKG performed by [facility] Today Dr. Hector Hsu MD Referrals: Cardiology Savi Rodriguez NP, FERMENTER HELPER-C 4. Pure hypercholesterolemia E78.00 Plan He does have a history of hyperlipidemia. I would recommend that we obtain a lipid profile at this visit. No other medication changes will be made. Thank you for allowing me to participate in his care. Plan Detail Other Orders Orders: 12 Lead EKG performed by [facility] Today E78.5, I25.2, R61, Z71.9, Z95.5 Dr. Hector Hsu MD Lipid Profile Today E78.5 Dr. Hector Hsu MD Liver Profile Today E78.5 Dr. Hector Hsu MD Referrals: Cardiology E78.5, I25.2, Z95.5 Savi Rodriguez NP, FERMENTER HELPER-C Follow Up 6 Months (dishwasher busser/onc) Coding Level of Care Code Off vis,new,level 4 Diagnoses Atherosclerosis of pe[place] coronary artery of [place] heart without angina pectoris I25.10 ?Coronary Disease-Associated Artery/Lesion type: [place] artery Chronic myeloid leukemia C92.10 Essential (primary) hypertension I10 Pure hypercholesterolemia E78.00 ?Hyperlipidemia type: pure hypercholesterolemia Coding Level of Care Code Off vis,new,level 4 Diagnoses Atherosclerosis of [place] coronary artery of [place] heart without angina pectoris I25.10 ?Coronary Disease-Associated Artery/Lesion type: [place] artery Chronic myeloid leukemia C92.10 Essential (primary) hypertension I10 Pure hypercholesterolemia E78.00 ?Hyperlipidemia type: pure hypercholesterolemia Supplemental Info Supplemental Information Diagnostics Electrocardiogram 04/20/20 Echocardiogram 04/20/20 05/20/20 1222 <Electronically signed by Hector Hsu MD> Date Hector Hsu MD Cosigner Signature: Date (if applicable) CC: Dr. Jocelin Saunders DO; MD Jocelin Langford Start: 05-19-2020 End: 05-19-2020 Oncology Visit Report Comments: See Note; NOTES: [facility] [place] [address] OFFICE VISIT Date of Service: 05/19/20 1438 MR#: [id number] Acct: [id number] Name: FREDERIC OVALLES Rep #: [id number] : 1960 From: Sawyer Delgado MD Age/Sex: 59/M Location: [facility] Status: Signed - Problem List (1) Chronic myeloid leukemia Status: Chronic - Date of Service Date of Service:: 05/19/20 - Chief Complaint Chronic myeloid leukemia on treatment - History of Present Illness 59-year-old gentleman with no known chronic inflammatory or infectious diseases referred in consultation because of a persistent leukocytosis. March 2020 peripheral blood BCR ABL by FISH was positive consistent with chronic myeloid leukemia. Bone marrow aspirate and biopsy April 13, 2020: BONE MARROW DIAGNOSIS Bone marrow biopsy, clot and aspiration (specimens A-C): Hypercellular bone marrow. No stainable iron identified. No evidence of lymphoproliferative disorder. See comment. COMMENT Flow cytometry analysis reveals no increased blasts population. However, myeloid elements exhibit aberrant expression of CD56 and show left shift with down-regulation of CD10 and CD16. The findings are compatible with an underlying primary myeloid neoplasm. The flow cytometry analysis report from [facility] is reviewable in the patient???s EMR. BONE MARROW STUDY Slides are reviewed. CBC DATE: 04/13/20 WBC 22.5; RBC 5.33; HGB 15.8; HCT 48.5; MCV 91.0; RDW 48.2; PLTS 206,000 SEGS 54%; LYMPHS 23%; MONOS 11%; EOS 2%; BASOS 0% PERIPHERAL SMEAR: Submitted. RBC: Normochromic, normomorphic WBC: Neutrophilic leukocytosis with slight left shift. PLTS: Normomorphic BONE MARROW ASPIRATE DIFFERENTIAL: 200 cell count. Blasts % (normal 0-2): 2 Promyelocytes % (normal 1-5): 5 Myelocytes and metamyelocytes % (normal 17-41): 38 Bands and Segs % (normal 15-32): 26 Eos % (normal 1-6): 2 Basos % (normal 0-1): 0 Monocytes % (normal 0-4): 2 Erythroid Precursors % (normal 17-35): 18 Lymphocytes % (normal 7-13): 7 Plasma Cells % (normal 0-2): 0 ASPIRATE FINDINGS: Site: Not specified Paucispicular Cellular M/E ratio: Within normal limits (Normal 1.5 - 4.0) Megakaryocytes: Adequate Erythropoiesis: Progressive Granulopoiesis: Normoblastic CORE BIOPSY FINDINGS: Site: Not specified Adequacy: No bone present Cellularity %: Not applicable M/E ratio: Not applicable Blood Only rare marrow cell noted. ASPIRATE CLOT FINDINGS: Site: Not specified Marrow Particles: Many Cellularity %: 80% M/E ratio: Within normal limits Megakaryocytes: Adequate Granuloma(s): 0 Lymphoid aggregate(s): 0 Atypical infiltrate(s): 0 SPECIAL STAINS (with matched controls): Iron: Stainable iron not present Reticulin: Within normal limits PAS: Highlights myeloid elements and megakaryocytes. ADDENDUM FISH BCR/ABL1 REPORT FROM [facility] INTERPRETATION: BCR/ABL gene rearrangement is detected. RESULTS: BCR/ABL1 Normal Nuclei Positive Nuclei with Dual Fusion 3.33% 96.67% CYTOGENETICS REPORT FROM [facility] INTERPRETATION: Abnormal male karyotype was observed in twenty metaphases analyzed. 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 Denies: Chest pain, Palpitations, Orthopnea, PND, Shortness of breath Respiratory: Reports: Shortness of breath upon exertion. Denies: Cough, Hemoptysis, Shortness of Breath, Wheezing Gastrointestinal:: Denies: Abdominal pain, Nausea, Vomiting, Diarrhea, Constipation, Hematochezia Genitourinary: Denies: Dysuria, Hematuria, 15, Flank pain Musculoskeletal:: Denies: Back pain, Myalgia, Arthralgia Skin: Denies: Rash, Skin Changes, Wounds Neurological:: Denies: Headache, Dizziness, Visual changes, Tinnitus, Hearing loss Psychiatric: Denies: Anxiety, Depression, Homicidal Ideations, Suicidal Ideations Vital Signs Temperature 98 F 05/19/20 14:27 Temperature Source Temporal 05/19/20 14:27 Pulse Rate 75 05/19/20 14:27 Respiratory Rate 16 05/19/20 14:27 Blood Pressure 113/73 05/19/20 14:27 Blood Pressure Mean 86 05/19/20 14:27 Blood Pressure Source Monitor 05/19/20 14:27 Blood Pressure Position Sitting 05/19/20 14:27 Blood Pressure Location Right Arm 05/19/20 14:27 Pulse Ox 96 05/19/20 14:27 Oxygen Delivery Method Room Air 05/19/20 14:27 - Physical Exam General: Alert, Oriented x3, No apparent distress, - - Rosen 0-1 HEENT: Atraumatic, PERRLA, EOMI, Normocephalic Oropharynx:: Dry mucosa Neck:: Supple, Trachea midline. Negative for: JVD, bilateral Cardiac:: Regular rate, Regular rhythm, Normal S1, Normal S2. Negative for: Murmur Lungs: Clear to auscultation, Diminished, Excusion symmetrical. Negative for: Rhonchi, Wheezes Abdomen:: Soft, Non-tender, Non-distended. Negative for: Hepatosplenomegaly Extremities:: Negative for: Cyanosis, Edema Neurological: Neuro grossly intact Skin:: Negative for: Lesions, Rash, Petechiae, Ecchymosis Psychiatric:: Appropriate affect, Euthymic Lymphatics:: Negative for: Cervical lymphadenopathy, Supraclavicular lymphadenopathy Laboratory Data: Laboratory Tests 05/19/20 05/19/20 Range/Units 12:35 12:35 WBC 6.2 (4.4-11.0) K/mm3 RBC 4.64 (4.6-6.2) M/mm3 Hgb 14.0 (13.0-16.5) g/dL Hct 41.9 (40-54) % MCV 90.3 (80-94) fL MCH 30.2 (27.0-32.0) pg MCHC 33.4 (32-36) g/dL RDW Std Deviation 45.3 H (35.1-43.9) fl RDW Coeff of Zayra 13.8 (11.6-14.6) % Plt Count 199 (150-450) K/mm3 MPV 9.3 (6.2-12.0) fl Immature Gran % (Auto) 0.200 (0.0-0.9) % Neut % (Auto) 61.8 (47-70) % Lymph % (Auto) 22.5 (19-41) % Arroyo % (Auto) 8.2 (0-10) % Eos % (Auto) 6.5 H (0-5) % Baso % (Auto) 0.8 (0-1) % Absolute Neuts (auto) 3.8 (2.0-7.7) X10 3/uL Absolute Lymphs (auto) 1.39 (0.83-4.51) X10 3/uL Nucleated RBC % 0 (0-5) % Sodium 138 (136-145) mmol/L Potassium 3.9 (3.5-5.1) mmol/L Chloride 107 (98-107) mmol/L Carbon Dioxide 27.0 (21.0-32.0) mmol/L Anion Gap 4 L (5-15) BUN 14 (7-18) mg/dL Creatinine 0.80 (0.70-1.30) mg/dL Estim Creat Clear Calc 109.13 ml/min Est GFR (MDRD) Af Amer 127 (>60) mL/min Est GFR (MDRD) Non-Af 105 (>60) mL/min BUN/Creatinine Ratio 17.5 (10-20) RATIO Glucose 107 H (74-106) mg/dL Calcium 9.1 (8.5-10.1) mg/dL Total Bilirubin 0.50 (0.20-1.00) mg/dL AST 42 H (15-37) U/L ALT 81 H (16-61) U/L Alkaline Phosphatase 86 (45-117) U/L Total Protein 7.6 (6.4-8.2) g/dL Albumin 3.9 (3.2-5.0) g/dL Globulin 3.7 (2.2-4.2) g/dL Albumin/Globulin Ratio 1.1 (0.9-2.4) RATIO Laboratory Tests 04/28/20 05/05/20 05/12/20 12:25 12:36 12:40 Total Bilirubin 0.40 0.40 0.40 AST 29 42 H 35 ALT 45 81 H 65 H Alkaline Phosphatase 86 85 78 05/19/20 12:35 Total Bilirubin 0.50 AST 42 H ALT 81 H Alkaline Phosphatase 86 Assessment and Plan 59-year-old male who presented with with a mature neutrophilic leukocytosis first noted January 2020, progressively worsening. He has no known chronic inflammatory or infectious diseases. BCR ABL profile with FISH is positive consistent with chronic myeloid leukemia. Bone marrow aspirate and biopsy March 2020 confirmed the diagnosis with a q BCR ABL positivity of 96.67% Started TKI therapy with dasatinib April 28, 2020, a decline in WBC/ANC is consistent with a hematologic response within the first month of treatment. Treatment is tolerated with no grade 3 or 4 toxicities. Mild elevation of liver enzymes less than 2 fold is being watched Comorbid conditions: smoker with over 30 pack years cigarettes (started at age 18 averaging 1/2 to 1 pack of cigarettes daily), hypertension, coronary artery disease and dyslipidemia. Plan: #1-Continue dasatinib on April 28, 2020. A mild (less than 2 fold) rise in liver enzymes will be monitored weekly. His pretreatment left ventricular ejection fraction normal at 55% March 2020. His EKG showed normal sinus rhythm with a normal QT/QTc 392/44 ms Hepatitis serologies showed no active chronic hepatitis #2-for occasional nausea continue to use ondansetron as needed. #3-refered to lung cancer screening register and smoking cessation discussed. Screening CT of the chest April 2020 okay. Patient was seen with his , impression and plan discussed. Sawyer Delgado MD Transit Driver, [facility] Divisions of Medical Oncology Hematology Department of Internal Medicine [place] [phone] This note was generated using a voice recognition system software. Although it was reviewed by the author prior to finalization, it may still contain incorrect words, spelling, and punctuation that were not noted when reviewing prior to saving. If a clinically significant typo or inaccurately typed phrase is noted, please notify the author. Medications: Prescriptions This Visit Medication Instructions Recorded Ascorbic Acid [Vitamin C] 1,000 mg PO DAILY 04/05/20 Vitamin E 200 unit PO DAILY 04/05/20 Ondansetron [Zofran] 8 mg PO Q8H PRN PRN #30 tab 05/05/20 Troy-3 Fatty Acids [Fish Oil] 1 cap PO DAILY 05/12/20 Primary Care Provider: Dr. Jocelin Saunders DO Referring Provider: Dr. Jocelin Saunders DO 05/19/20 1450 <Electronically signed by Sawyer Delgado MD> Date Sawyer Delgado MD Cosigner Signature: Date (if applicable) CC: Jocelin Saunders Start: 05-17-2020 End: 05-17-[address] Lung Screening Comments: See Note; NOTES: [facility] Imaging Services [address] [place] [id number] Lung Screening MR#: [id number] Acct: [id number] Name: MARTHAFREDERIC Rep #: [id number] : 1960 M 59 From: Jeovanny medeiros MD PCP: Dr. Jocelin Saunders DO Status: [facility] CLI Study: Low Dose CT Lung Screening Date of Exam: 05/17 Exam# [id number] Ordering Dr: Savi Rodriguez NP FERMENTER HELPER -C STUDY: LOW DOSE CT LUNG CANCER SCREENING REASON FOR EXAM: Male, 59 years old. LUNG SCREEN, 1/2 PPD X 30 YRS. RADIATION DOSAGE (If Supplied By Facility): CTDIvol = ( 4.02 ) mGy, DLP = ( 130.89 ) mGycm TECHNIQUE: No contrast was administered. Low dose technique was utilized (average mAS-38 and kVp 120). 1.25 mm axial source images with a slice interval of 1.25-mm were reconstructed in lung windows. 2.5 mm axial source images with a slice interval of 2.5-mm were reconstructed in lung windows. 5.0 mm axial source images with a slice interval of 5.0-mm were reconstructed in soft tissue windows. Nodule measured using lung windows on PACS and/or independent workstation with automated measurement of minimum and maximum diameter. Nodule measurement reported as average diameter rounded to the nearest whole number. Growth is defined as an increase ins size of greater than 1.5 mm. COMPARISON: None. NODULES: No suspicious nodules are seen. Emphysema: Mild increased markings at the lung apices suggestive of scarring. Endobronchial lesion: None. Aorta: Atherosclerotic plaque calcification involving the aortic arch. Coronary arteries: Coronary artery calcification. Prior coronary artery stenting. Heart: Minimal pericardial thickening. Mediastinal nodes: Small benign-appearing mediastinal lymph nodes. Other chest and abdominal findings: CT/Low Dose CT Lung Screening IMPRESSION: Lung-RADS category 2 - Continue annual screening with LDCT in 12 months. IMPORTANT NOTES FOR USE: ACR Lung-RADS Version 1.0 Assessment Categories Release Date: November 16, 2013 Category: Coded 0-4 bases on nodule(s) with highest degree of suspicion. Negative screen is defined as categories 1 and 2; a positive screen is defined as categories 3 and 4. Category 3 and 4A nodules that are unchanged on interval CT should be coded as category 2, and individuals returned to screening in 12 months. Category 4X: Category 3 or 4 nodules with additional imaging findings that increase the suspicion of lung cancer, such as spiculation, GGN that doubles in size in 1 year, enlarged lymph notes, etc. Category Modifiers: S (significant finding unrelated to lung cancer) and C (prior history of treated lung cancer) may be added to the 0-4 Lung-RADS Electronically Signed: Jeovanny Swan, at 15:38 EDT , Service support , CC: SELVIN Rodriguez; Dr. Jocelin Saunders DO Wool Supplier: Signed Jocelin Saunders Start: 05-17-2020 End: 05-17-2020 Oncology Visit Report Comments: See Note; NOTES: [facility] [address] [place] [address] OFFICE VISIT Date of Service: 05/17/20 1358 MR#: [id number] Acct: [id number] Name: FREDERIC OVALLES Rep #: [id number] : 1960 From: Savi Rodriguez NP FERMENTER HELPER -C Age/Sex: 59/M Location: [facility] [place] Status: Signed HPI HPI Reviewed eligibility criteria: 59 year old M with a 35pack year smoking history (1 ppd x 35 years) Smoking Status: Current some day smoker (0.5 ppd ) Patient is exhibiting no signs or symptoms of lung cancer at this time and verbalizes they would be willing to pursue treatment with curative intent if lung cancer is discovered. Decision Making Engaged in shared decision making visit utilizing a visual aid. Discussed the risks and benefits of lung cancer screening including the total radiation exposure, false positive rate, over diagnosis and potential need for follow-up diagnostic testing all associated with low-dose chest CT. Comorbidities CML, CAD, hypertension ROS Const Denies anorexia, Denies fatigue, Denies headache(s), Denies poor appetite, Denies weight loss ENT Denies headache(s) Card Denies chest pain, Denies shortness of breath, Denies rapid, pounding, or irregular heartbeat Resp Denies cough, Denies shortness of breath, Denies coughing up blood, Denies wheezing GI Reports system reviewed and no additional complaints, except as docu Reports system reviewed and no additional complaints, except as docu Musc Reports system reviewed and no additional complaints, except as docu Skin/Breast Reports system reviewed and no additional complaints, except as docu Neuro Yes system reviewed and no additional complaints, except as docu, No headache(s) Psych Reports system reviewed and no additional complaints, except as docu Endo Reports system reviewed and no additional complaints, except as docu, Denies fatigue, Denies rapid, pounding, or irregular heartbeat Reynaldo/Lymph Reports system reviewed and no additional complaints, except as docu Aller/Immun Denies wheezing Exam Const General: healthy appearing, well developed, not in acute distress Orientation: alert, awake, oriented x3 HENMT Head: normocephalic, atraumatic Neck Neck: trachea midline, supple, no lymphadenopathy noted Resp Effort Inspection: normal respiratory effort, symmetric chest movement Auscultation: Bilateral: Clear to Auscultation Cardio Rate: regular rate Rhythm: regular rhythm Heart Sounds: S1 normal, S2 normal, no murmurs Psych Mood: euthymic mood Affect: normal affect Speech and Movement: speech and movement normal Attitude: cooperative Results Results 05/17/20 LDCT chest: NODULES: No suspicious nodules are seen. Emphysema: Mild increased markings at the lung apices suggestive of scarring. Endobronchial lesion: None. Aorta: Atherosclerotic plaque calcification involving the aortic arch. Coronary arteries: Coronary artery calcification. Prior coronary artery stenting. Heart: Minimal pericardial thickening. Mediastinal nodes: Small benign-appearing mediastinal lymph nodes. Other chest and abdominal findings: IMPRESSION: Lung-RADS category 2 - Continue annual screening with LDCT in 12 months. Intake Vital Signs 05/17/20 BP 124/86 H 05/17/20 Respiration 16 05/17/20 Pulse 71 05/17/20 Temp 98.2 F 05/17/20 Pulse Oximetry (%) 98 05/17/20 Pulse Oximetry (%) 98 Intake Visit Reasons: lung cancer screening Chief Complaint: Lung cancer screening Is patient in pain?: No Allergies No Known Allergies Allergy (Verified 05/17/20 14:00) PFSH Medical History Atherosclerosis of coronary artery of [place] heart without angina pectoris (Chronic) History of ST elevation myocardial infarction (STEMI) (Resolved 01/2017) Old anterior wall myocardial infarction (Chronic) Essential (primary) hypertension (Chronic) Hyperlipidemia (Chronic) Fatigue (Acute) Fracture of great toe, right, open (Acute) Leukocytosis (Acute) Near syncope (Acute) Unspecified injury of right foot, sequela (Acute) History of back problems (Chronic) Nicotine dependence (Chronic) Obesity (BMI 30.0-34.9) (Chronic) Hiatal hernia with GERD (Resolved) Surgical History History of coronary artery stent placement (Resolved 01/2017) History of bilateral inguinal hernia repair (Resolved 08/2018) History of bone marrow biopsy (Resolved 04/13/20) Status post laparoscopic Migue fundoplication (Resolved 10/15/18) Family History Father Colon cancer Diabetes Heart disease Hypertension CAD (coronary artery disease) Sister Breast cancer Mother CAD (coronary artery disease) Hypertension Heart disease Social History (Updated 05/17/20 @ 17:07 by Savi Rodriguez NP, FERMENTER HELPER-C) Smoking Status: Current some day smoker Assessment Plan 1. Encounter for screening for malignant neoplasm of lung Z12.2 Plan 1. Per LUNG RADS category 2 LDCT chest scan is recommended in 12 months. Patient is made aware images are subject to multidisciplinary review and if alternate recommendations for screening are advised, he/she will be contacted via phone. 2. Other findings: Mild emphysema, coronary artery calcifications. Advised routine follow up with his pcp and resistor coater. Orders Orders: Low Dose CT Lung Screening Today 2. Tobacco use disorder, continuous F17.209 Plan A 10 minute, face to face discussion occurred with the patient regarding smoking cessation. Risks of continued tobacco abuse was covered such as heart disease, stroke, cancer, and emphysema, among others. The many health benefits quitting, was discussed and the patient was educated on the fact that smokers lose an average of 10 minutes of life for every cigarette smoked. We discussed the pathophysiology of smoking addiction and its dual addictive components of nicotine addiction and psychological addiction. Nicotine replacement was discussed. We also talked about medications that may be helpful such as Bupropion (Wellbutrin) or Varenicline (Chantix). Advise was also offered on preoccupying the mind during trigger times with activities such as chewing gum, sucking on hard candy or utilizing their hands with an activity such as drawing. Currently the patient is smoking 0.5 ppd. At this time, FREDERIC is in the precontemplative phase. cessation. You may call the free hotline 3-690-PPJV-NOW. People who use this line are THREE times more likely to remain smoke free. Orders Orders: Low Dose CT Lung Screening Today 05/17/20 6426 <Electronically signed by Savi CASHC> Date Savi MONTALVO Cosigner Signature: Date (if applicable) CC: Dr. Hector Hsu MD; Dr. Jocelin Saunders DO; MD Darek Langfordeen Puja Start: 05-12-2020 End: 05-12-2020 Oncology Visit Report Comments: See Note; NOTES: [facility] [address] [address] OFFICE VISIT Date of Service: 05/12/20 1313 MR#: [id number] Acct: [id number] Name: FREDERIC OVALLES Rep #: [id number] : 1960 From: Sawyer Delgado MD Age/Sex: 59/M Location: [facility] Status: Signed - Problem List (1) Chronic myeloid leukemia Status: Chronic - Date of Service Date of Service:: 05/12/20 - Chief Complaint CML on treatment - History of Present Illness 59-year-old gentleman with no known chronic inflammatory or infectious diseases referred in consultation because of a persistent leukocytosis. March 2020 peripheral blood BCR ABL by FISH was positive consistent with chronic myeloid leukemia. Bone marrow aspirate and biopsy April 13, 2020: BONE MARROW DIAGNOSIS Bone marrow biopsy, clot and aspiration (specimens A-C): Hypercellular bone marrow. No stainable iron identified. No evidence of lymphoproliferative disorder. See comment. COMMENT Flow cytometry analysis reveals no increased blasts population. However, myeloid elements exhibit aberrant expression of CD56 and show left shift with down-regulation of CD10 and CD16. The findings are compatible with an underlying primary myeloid neoplasm. The flow cytometry analysis report from [facility] is reviewable in the patient???s EMR. BONE MARROW STUDY Slides are reviewed. CBC DATE: 04/13/20 WBC 22.5; RBC 5.33; HGB 15.8; HCT 48.5; MCV 91.0; RDW 48.2; PLTS 206,000 SEGS 54%; LYMPHS 23%; MONOS 11%; EOS 2%; BASOS 0% PERIPHERAL SMEAR: Submitted. RBC: Normochromic, normomorphic WBC: Neutrophilic leukocytosis with slight left shift. PLTS: Normomorphic BONE MARROW ASPIRATE DIFFERENTIAL: 200 cell count. Blasts % (normal 0-2): 2 Promyelocytes % (normal 1-5): 5 Myelocytes and metamyelocytes % (normal 17-41): 38 Bands and Segs % (normal 15-32): 26 Eos % (normal 1-6): 2 Basos % (normal 0-1): 0 Monocytes % (normal 0-4): 2 Erythroid Precursors % (normal 17-35): 18 Lymphocytes % (normal 7-13): 7 Plasma Cells % (normal 0-2): 0 ASPIRATE FINDINGS: Site: Not specified Paucispicular Cellular M/E ratio: Within normal limits (Normal 1.5 - 4.0) Megakaryocytes: Adequate Erythropoiesis: Progressive Granulopoiesis: Normoblastic CORE BIOPSY FINDINGS: Site: Not specified Adequacy: No bone present Cellularity %: Not applicable M/E ratio: Not applicable Blood Only rare marrow cell noted. ASPIRATE CLOT FINDINGS: Site: Not specified Marrow Particles: Many Cellularity %: 80% M/E ratio: Within normal limits Megakaryocytes: Adequate Granuloma(s): 0 Lymphoid aggregate(s): 0 Atypical infiltrate(s): 0 SPECIAL STAINS (with matched controls): Iron: Stainable iron not present Reticulin: Within normal limits PAS: Highlights myeloid elements and megakaryocytes. ADDENDUM FISH BCR/ABL1 REPORT FROM [facility] INTERPRETATION: BCR/ABL gene rearrangement is detected. RESULTS: BCR/ABL1 Normal Nuclei Positive Nuclei with Dual Fusion 3.33% 96.67% CYTOGENETICS REPORT FROM [facility] INTERPRETATION: Abnormal male karyotype was observed in twenty metaphases analyzed. 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 Denies: Fever, Sweats, Weight loss, Appetite change, Chills Cardiovascular:: Denies: Chest pain, Palpitations, Dyspnea on exertion, Orthopnea, PND, Shortness of breath Respiratory: Denies: Cough, Hemoptysis, Shortness of Breath, Wheezing Gastrointestinal:: Reports: Nausea - Occasional, average use of antiemetics once every 3 days or so. Denies: Abdominal pain, Vomiting, Diarrhea, Constipation, Hematochezia Genitourinary: Denies: Dysuria, Hematuria, 15, Flank pain Musculoskeletal:: Reports: Back pain - Chronic, unchanged, occasional analgesia. Denies: Myalgia, Arthralgia Skin: Denies: Rash, Skin Changes, Wounds Neurological:: Denies: Headache, Dizziness, Visual changes, Tinnitus, Hearing loss Psychiatric: Denies: Anxiety, Depression, Homicidal Ideations, Suicidal Ideations Vital Signs Temperature 98.8 F 05/12/20 13:03 Temperature Source Temporal 05/12/20 13:03 Pulse Rate 76 05/12/20 13:03 Respiratory Rate 14 05/12/20 13:03 Blood Pressure 108/70 05/12/20 13:03 Blood Pressure Mean 82 05/12/20 13:03 Blood Pressure Source Monitor 05/12/20 13:03 Blood Pressure Position Sitting 05/12/20 13:03 Blood Pressure Location Left Arm 05/12/20 13:03 Pulse Ox 96 05/12/20 13:03 Oxygen Delivery Method Room Air 05/12/20 13:03 - Physical Exam General: Alert, Oriented x3, No apparent distress, - - ECOG 1 HEENT: Atraumatic, PERRLA, EOMI, Normocephalic Oropharynx:: Dry mucosa Neck:: Supple, Trachea midline. Negative for: JVD, bilateral Cardiac:: Regular rate, Regular rhythm, Normal S1, Normal S2. Negative for: Murmur Lungs: Clear to auscultation, Excusion symmetrical. Negative for: Rhonchi, Wheezes Abdomen:: Soft, Non-tender, Non-distended Extremities:: Negative for: Cyanosis, Edema Neurological: Neuro grossly intact Skin:: Negative for: Lesions, Rash, Petechiae, Ecchymosis Psychiatric:: Appropriate affect, Euthymic Lymphatics:: Negative for: Cervical lymphadenopathy, Supraclavicular lymphadenopathy Laboratory Data: Laboratory Tests 05/12/20 05/12/20 Range/Units 12:40 12:40 WBC 8.2 (4.4-11.0) K/mm3 RBC 5.00 (4.6-6.2) M/mm3 Hgb 14.9 (13.0-16.5) g/dL Hct 45.9 (40-54) % MCV 91.8 (80-94) fL MCH 29.8 (27.0-32.0) pg MCHC 32.5 (32-36) g/dL RDW Std Deviation 47.2 H (35.1-43.9) fl RDW Coeff of Zayra 14.0 (11.6-14.6) % Plt Count 196 (150-450) K/mm3 MPV 9.7 (6.2-12.0) fl Immature Gran % (Auto) 0.500 (0.0-0.9) % Neut % (Auto) 66.0 (47-70) % Lymph % (Auto) 20.4 (19-41) % Arroyo % (Auto) 6.3 (0-10) % Eos % (Auto) 5.1 H (0-5) % Baso % (Auto) 1.7 H (0-1) % Absolute Neuts (auto) 5.4 (2.0-7.7) X10 3/uL Absolute Lymphs (auto) 1.68 (0.83-4.51) X10 3/uL Nucleated RBC % 0 (0-5) % Sodium 140 (136-145) mmol/L Potassium 4.1 (3.5-5.1) mmol/L Chloride 108 H (98-107) mmol/L Carbon Dioxide 27.0 (21.0-32.0) mmol/L Anion Gap 5 (5-15) BUN 12 (7-18) mg/dL Creatinine 0.90 (0.70-1.30) mg/dL Estim Creat Clear Calc 97.00 ml/min Est GFR (MDRD) Af Amer 110 (>60) mL/min Est GFR (MDRD) Non-Af 91 (>60) mL/min BUN/Creatinine Ratio 13.3 (10-20) RATIO Glucose 109 H (74-106) mg/dL Calcium 8.9 (8.5-10.1) mg/dL Total Bilirubin 0.40 (0.20-1.00) mg/dL AST 35 (15-37) U/L ALT 65 H (16-61) U/L Alkaline Phosphatase 78 (45-117) U/L Total Protein 7.5 (6.4-8.2) g/dL Albumin 3.9 (3.2-5.0) g/dL Globulin 3.6 (2.2-4.2) g/dL Albumin/Globulin Ratio 1.1 (0.9-2.4) RATIO Assessment and Plan 59-year-old male who presented with with a mature neutrophilic leukocytosis first noted January 2020, progressively worsening. He has no known chronic inflammatory or infectious diseases. BCR ABL profile with FISH is positive consistent with chronic myeloid leukemia. Bone marrow aspirate and biopsy March 2020 confirmed the diagnosis with a q BCR ABL positivity of 96.67% Started TKI therapy with dasatinib April 28, 2020, a decline in WBC/ANC is consistent with a hematologic response . Treatment is tolerated with no grade 3 or 4 toxicities. Comorbid conditions: smoker with over 30 pack years cigarettes (started at age 18 averaging 1/2 to 1 pack of cigarettes daily), hypertension, coronary artery disease and dyslipidemia. Plan: #1-Continue dasatinib on April 28, 2020. A mild (less than 2 fold) rise in liver enzymes will be monitored weekly. His pretreatment left ventricular ejection fraction normal at 55% March 2020. His EKG showed normal sinus rhythm with a normal QT/QTc 392/44 ms Hepatitis serologies showed no active chronic hepatitis #2-for occasional nausea continue to use ondansetron as needed. #3-refer to lung cancer screening register and smoking cessation discussed.. Patient was seen with his , impression and plan discussed. Sawyer Delgado MD Transit Driver, [facility] Divisions of Medical Oncology Hematology Department of Internal Medicine [place] [id number] This note was generated using a voice recognition system software. Although it was reviewed by the author prior to finalization, it may still contain incorrect words, spelling, and punctuation that were not noted when reviewing prior to saving. If a clinically significant typo or inaccurately typed phrase is noted, please notify the author. Medications: Prescriptions This Visit Medication Instructions Recorded Ascorbic Acid [Vitamin C] 1,000 mg PO DAILY 04/05/20 Vitamin E 200 unit PO DAILY 04/05/20 Ondansetron [Zofran] 8 mg PO Q8H PRN PRN #30 tab 05/05/20 Troy-3 Fatty Acids [Fish Oil] 1 cap PO DAILY 05/12/20 Primary Care Provider: Dr. Jocelin Saunders DO Referring Provider: Dr. Jocelin Saunders DO 05/12/20 1323 <Electronically signed by Sawyer Delgado MD> Date Sawyer Delgado MD Cosigner Signature: Date (if applicable) CC: Jocelin Saunders Start: 05-05-2020 End: 05-05-2020 Oncology Visit Report Comments: See Note; NOTES: [facility] [address] [place] [address]. [place] [address] OFFICE VISIT Date of Service: 05/05/20 1345 MR#: [id number] Acct: [id number] Name: FREDERIC OVALLES Rep #: [id number] : 1960 From: Sawyer Delgado MD Age/Sex: 59/M Location: [facility] Status: Signed - Problem List (1) Chronic myeloid leukemia Status: Chronic - Date of Service Date of Service:: 05/05/20 - Chief Complaint Chronic myeloid leukemia on treatment - History of Present Illness 59-year-old gentleman with no known chronic inflammatory or infectious diseases referred in consultation because of a persistent leukocytosis. March 2020 peripheral blood BCR ABL by FISH was positive consistent with chronic myeloid leukemia. Bone marrow aspirate and biopsy April 13, 2020: BONE MARROW DIAGNOSIS Bone marrow biopsy, clot and aspiration (specimens A-C): Hypercellular bone marrow. No stainable iron identified. No evidence of lymphoproliferative disorder. See comment. COMMENT Flow cytometry analysis reveals no increased blasts population. However, myeloid elements exhibit aberrant expression of CD56 and show left shift with down-regulation of CD10 and CD16. The findings are compatible with an underlying primary myeloid neoplasm. The flow cytometry analysis report from [facility] is reviewable in the patient???s EMR. BONE MARROW STUDY Slides are reviewed. CBC DATE: 04/13/20 WBC 22.5; RBC 5.33; HGB 15.8; HCT 48.5; MCV 91.0; RDW 48.2; PLTS 206,000 SEGS 54%; LYMPHS 23%; MONOS 11%; EOS 2%; BASOS 0% PERIPHERAL SMEAR: Submitted. RBC: Normochromic, normomorphic WBC: Neutrophilic leukocytosis with slight left shift. PLTS: Normomorphic BONE MARROW ASPIRATE DIFFERENTIAL: 200 cell count. Blasts % (normal 0-2): 2 Promyelocytes % (normal 1-5): 5 Myelocytes and metamyelocytes % (normal 17-41): 38 Bands and Segs % (normal 15-32): 26 Eos % (normal 1-6): 2 Basos % (normal 0-1): 0 Monocytes % (normal 0-4): 2 Erythroid Precursors % (normal 17-35): 18 Lymphocytes % (normal 7-13): 7 Plasma Cells % (normal 0-2): 0 ASPIRATE FINDINGS: Site: Not specified Paucispicular Cellular M/E ratio: Within normal limits (Normal 1.5 - 4.0) Megakaryocytes: Adequate Erythropoiesis: Progressive Granulopoiesis: Normoblastic CORE BIOPSY FINDINGS: Site: Not specified Adequacy: No bone present Cellularity %: Not applicable M/E ratio: Not applicable Blood Only rare marrow cell noted. ASPIRATE CLOT FINDINGS: Site: Not specified Marrow Particles: Many Cellularity %: 80% M/E ratio: Within normal limits Megakaryocytes: Adequate Granuloma(s): 0 Lymphoid aggregate(s): 0 Atypical infiltrate(s): 0 SPECIAL STAINS (with matched controls): Iron: Stainable iron not present Reticulin: Within normal limits PAS: Highlights myeloid elements and megakaryocytes. ADDENDUM FISH BCR/ABL1 REPORT FROM [facility] INTERPRETATION: BCR/ABL gene rearrangement is detected. RESULTS: BCR/ABL1 Normal Nuclei Positive Nuclei with Dual Fusion 3.33% 96.67% CYTOGENETICS REPORT FROM [facility] INTERPRETATION: Abnormal male karyotype was observed in twenty metaphases analyzed. 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 Denies: Abdominal pain, Vomiting, Diarrhea, Constipation, Hematochezia Genitourinary: Denies: Dysuria, Hematuria, 15, Flank pain Musculoskeletal:: Reports: Back pain - Chronic neck and low back pains appear to be worse this past week or so uses aspirin as needed. Denies: Myalgia, Arthralgia Skin: Denies: Rash, Skin Changes, Wounds Neurological:: Denies: Headache, Dizziness, Visual changes, Tinnitus, Hearing loss Psychiatric: Denies: Anxiety, Depression, Homicidal Ideations, Suicidal Ideations Vital Signs Temperature 98.4 F 05/05/20 13:07 Temperature Source Temporal 05/05/20 13:07 Pulse Rate 60 05/05/20 13:07 Respiratory Rate 16 05/05/20 13:07 Blood Pressure 111/77 05/05/20 13:07 Blood Pressure Mean 88 05/05/20 13:07 Blood Pressure Source Monitor 05/05/20 13:07 Blood Pressure Position Sitting 05/05/20 13:07 Blood Pressure Location Left Arm 05/05/20 13:07 Pulse Ox 96 05/05/20 13:07 Oxygen Delivery Method Room Air 05/05/20 13:07 - Physical Exam General: Alert, Oriented x3, No apparent distress, - - Obese, ECOG 0-1 HEENT: Atraumatic, PERRLA, EOMI, Normocephalic Oropharynx:: Dry mucosa Neck:: Supple, Trachea midline. Negative for: JVD, bilateral Cardiac:: Regular rate, Regular rhythm, Normal S1, Normal S2. Negative for: Murmur Lungs: Clear to auscultation, Excusion symmetrical. Negative for: Rhonchi, Wheezes Extremities:: Negative for: Cyanosis, Edema Neurological: Neuro grossly intact Skin:: Negative for: Lesions, Rash, Petechiae, Ecchymosis Psychiatric:: Appropriate affect, Euthymic Lymphatics:: Negative for: Cervical lymphadenopathy, Supraclavicular lymphadenopathy Laboratory Data: Laboratory Tests 05/05/20 05/05/20 Range/Units 12:36 12:36 WBC 17.6 H (4.4-11.0) K/mm3 RBC 5.35 (4.6-6.2) M/mm3 Hgb 15.9 (13.0-16.5) g/dL Hct 48.3 (40-54) % MCV 90.3 (80-94) fL MCH 29.7 (27.0-32.0) pg MCHC 32.9 (32-36) g/dL RDW Std Deviation 46.6 H (35.1-43.9) fl RDW Coeff of Zayra 14.2 (11.6-14.6) % Plt Count 210 (150-450) K/mm3 MPV 9.7 (6.2-12.0) fl Neut % (Auto) Not Reportable Absolute Neuts (auto) 11.4 H (2.0-7.7) X10 3/uL Absolute Lymphs (auto) 3.52 (0.83-4.51) X10 3/uL Total Counted 100 (MANUAL DIFF) Neutrophils % (Manual) 65 (47-70) % Lymphocytes % (Manual) 20 (19-41) % Monocytes % (Manual) 5 (0-10) % Eosinophils % (Manual) 6 H (0-5) % Metamyelocytes % 3 H (0-1) % Myelocytes % 1 H (0-0) Diff Path Review May foll Platelet Estimate ADEQUATE (ADEQ) RBC Morphology NORM C+C (NORM C C) NORMAL Sodium 135 L (136-145) mmol/L Potassium 4.3 (3.5-5.1) mmol/L Chloride 103 (98-107) mmol/L Carbon Dioxide 28.0 (21.0-32.0) mmol/L Anion Gap 4 L (5-15) BUN 14 (7-18) mg/dL Creatinine 0.80 (0.70-1.30) mg/dL Estim Creat Clear Calc 109.13 ml/min Est GFR (MDRD) Af Amer 128 (>60) mL/min Est GFR (MDRD) Non-Af 106 (>60) mL/min BUN/Creatinine Ratio 17.6 (10-20) RATIO Glucose 96 (74-106) mg/dL Calcium 9.1 (8.5-10.1) mg/dL Total Bilirubin 0.40 (0.20-1.00) mg/dL AST 42 H (15-37) U/L ALT 81 H (16-61) U/L Alkaline Phosphatase 85 (45-117) U/L Total Protein 8.1 (6.4-8.2) g/dL Albumin 4.3 (3.2-5.0) g/dL Globulin 3.8 (2.2-4.2) g/dL Albumin/Globulin Ratio 1.1 (0.9-2.4) RATIO Assessment and Plan 59-year-old male who presented with with a mature neutrophilic leukocytosis first noted January 2020, progressively worsening. He has no known chronic inflammatory or infectious diseases. BCR ABL profile with FISH is positive consistent with chronic myeloid leukemia. Bone marrow aspirate and biopsy March 2020 confirmed the diagnosis with a q BCR ABL positivity of 96.67% Started TKI therapy with dasatinib April 28, 2020, a decline in WBC/ANC is consistent with a hematologic response still incomplete. Treatment is tolerated with no grade 3 or 4 toxicities. Comorbid conditions: smoker with over 30 pack years cigarettes (started at age 18 averaging 1/2 to 1 pack of cigarettes daily), hypertension, coronary artery disease and dyslipidemia. Plan: #1-Continue dasatinib on April 28, 2020. A mild (less than 2 fold) rise in liver enzymes will be monitored weekly. His pretreatment left ventricular ejection fraction normal at 55% March 2020. His EKG showed normal sinus rhythm with a normal QT/QTc 392/44 ms Hepatitis serologies showed no active chronic hepatitis #2-for occasional nausea use ondansetron as needed. #3-refer to lung cancer screening register and smoking cessation discussed.. Patient was seen with his , impression and plan discussed. Sawyer Delgado MD Transit Driver, [facility] Divisions of Medical Oncology Hematology Department of Internal Medicine [facility] [place] [address] This note was generated using a voice recognition system software. Although it was reviewed by the author prior to finalization, it may still contain incorrect words, spelling, and punctuation that were not noted when reviewing prior to saving. If a clinically significant typo or inaccurately typed phrase is noted, please notify the author. Medications: Prescriptions This Visit Medication Instructions Recorded Ascorbic Acid [Vitamin C] 1,000 mg PO DAILY 04/05/20 Vitamin E 200 unit PO DAILY 04/05/20 Primary Care Provider: Dr. Jocelin Saunders DO Referring Provider: Dr. Jocelin Saunders DO 05/05/20 9368 <Electronically signed by Sawyer Delgado MD> Date Sawyer Delgado MD Cosigner Signature: Date (if applicable) CC: Jocelin Saunders Start: 04-28-2020 End: 04-28-2020 Oncology Visit Report Comments: See Note; NOTES: [facility] [address] [place] [address] OFFICE VISIT Date of Service: 04/28/20 1245 MR#: [id number] Acct: [id number] Name: FREDERIC OVALLES Rep #: [id number] : 1960 From: Sawyer Delgado MD Age/Sex: 59/M Location: OMD Status: Signed - Problem List (1) Chronic myeloid leukemia Status: Chronic - Date of Service Date of Service:: 04/28/20 - Chief Complaint Chronic myeloid leukemia, new diagnosis - History of Present Illness 59-year-old gentleman with no known chronic inflammatory or infectious diseases referred in consultation because of a persistent leukocytosis. March 2020 peripheral blood BCR ABL by FISH was positive consistent with chronic myeloid leukemia. Bone marrow aspirate and biopsy April 13, 2020: BONE MARROW DIAGNOSIS Bone marrow biopsy, clot and aspiration (specimens A-C): Hypercellular bone marrow. No stainable iron identified. No evidence of lymphoproliferative disorder. See comment. COMMENT Flow cytometry analysis reveals no increased blasts population. However, myeloid elements exhibit aberrant expression of CD56 and show left shift with down-regulation of CD10 and CD16. The findings are compatible with an underlying primary myeloid neoplasm. The flow cytometry analysis report from [facility] is reviewable in the patient???s EMR. BONE MARROW STUDY Slides are reviewed. CBC DATE: 04/13/20 WBC 22.5; RBC 5.33; HGB 15.8; HCT 48.5; MCV 91.0; RDW 48.2; PLTS 206,000 SEGS 54%; LYMPHS 23%; MONOS 11%; EOS 2%; BASOS 0% PERIPHERAL SMEAR: Submitted. RBC: Normochromic, normomorphic WBC: Neutrophilic leukocytosis with slight left shift. PLTS: Normomorphic BONE MARROW ASPIRATE DIFFERENTIAL: 200 cell count. Blasts % (normal 0-2): 2 Promyelocytes % (normal 1-5): 5 Myelocytes and metamyelocytes % (normal 17-41): 38 Bands and Segs % (normal 15-32): 26 Eos % (normal 1-6): 2 Basos % (normal 0-1): 0 Monocytes % (normal 0-4): 2 Erythroid Precursors % (normal 17-35): 18 Lymphocytes % (normal 7-13): 7 Plasma Cells % (normal 0-2): 0 ASPIRATE FINDINGS: Site: Not specified Paucispicular Cellular M/E ratio: Within normal limits (Normal 1.5 - 4.0) Megakaryocytes: Adequate Erythropoiesis: Progressive Granulopoiesis: Normoblastic CORE BIOPSY FINDINGS: Site: Not specified Adequacy: No bone present Cellularity %: Not applicable M/E ratio: Not applicable Blood Only rare marrow cell noted. ASPIRATE CLOT FINDINGS: Site: Not specified Marrow Particles: Many Cellularity %: 80% M/E ratio: Within normal limits Megakaryocytes: Adequate Granuloma(s): 0 Lymphoid aggregate(s): 0 Atypical infiltrate(s): 0 SPECIAL STAINS (with matched controls): Iron: Stainable iron not present Reticulin: Within normal limits PAS: Highlights myeloid elements and megakaryocytes. ADDENDUM FISH BCR/ABL1 REPORT FROM [facility] INTERPRETATION: BCR/ABL gene rearrangement is detected. RESULTS: BCR/ABL1 Normal Nuclei Positive Nuclei with Dual Fusion 3.33% 96.67% CYTOGENETICS REPORT FROM [facility] INTERPRETATION: Abnormal male karyotype was observed in twenty metaphases analyzed. 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] Treatment: Dasatinib 100 mg daily April 28, 2020- - Past Medical/Social History Social History Social History: No changes Smoking Status Current every day smoker Review of Systems Constitutional:: Denies: Fever, Sweats, Weight loss, Appetite change, Chills Cardiovascular:: Denies: Chest pain, Palpitations, Dyspnea on exertion, Orthopnea, PND, Shortness of breath Respiratory: Denies: Cough, Hemoptysis, Shortness of Breath, Wheezing Gastrointestinal:: Denies: Abdominal pain, Nausea, Vomiting, Diarrhea, Constipation, Hematochezia Genitourinary: Denies: Dysuria, Hematuria, 15, Flank pain Musculoskeletal:: Denies: Back pain, Myalgia, Arthralgia Skin: Denies: Rash, Skin Changes, Wounds Neurological:: Denies: Headache, Dizziness, Visual changes, Tinnitus, Hearing loss Psychiatric: Denies: Anxiety, Depression, Homicidal Ideations, Suicidal Ideations Selected Entries 04/28/20 12:56 Temperature 97.9 F Pulse Rate 72 Respiratory Rate 14 Blood Pressure 122/80 H Blood Pressure Mean 94 Pulse Ox 96 - Physical Exam General: Alert, Oriented x3, No apparent distress, - - ECOG 0 HEENT: Atraumatic, PERRLA, EOMI, Normocephalic Oropharynx:: Dry mucosa Neck:: Supple, Trachea midline. Negative for: JVD, bilateral Cardiac:: Regular rate, Regular rhythm, Normal S1, Normal S2. Negative for: Murmur Lungs: Clear to auscultation, Excusion symmetrical. Negative for: Rhonchi, Wheezes Abdomen:: Soft, Non-tender, Non-distended, Obese, - - Palpation of spleen is limited due to obesity Extremities:: Negative for: Cyanosis, Edema Neurological: Neuro grossly intact Skin:: - - Right hand Band-Aid covering "a puppy bite". Negative for: Lesions, Rash, Petechiae, Ecchymosis Psychiatric:: Appropriate affect, Euthymic Lymphatics:: Negative for: Cervical lymphadenopathy, Supraclavicular lymphadenopathy Laboratory Data: CBC, CMP reviewed in EMR Laboratory Tests 04/13/20 04/28/20 08:59 12:25 WBC 31.4 H* Hgb 15.0 MCV 90.8 Plt Count 196 Absolute Neuts (auto) 13.5 H Assessment and Plan 59-year-old male who presented with with a mature neutrophilic leukocytosis first noted January 2020, progressively worsening. He has no known chronic inflammatory or infectious diseases. BCR ABL profile with FISH is positive consistent with chronic myeloid leukemia. Bone marrow aspirate and biopsy March 2020 confirmed the diagnosis with a q BCR ABL positivity of 96.67% Patients with chronic myeloid leukemia (CML) can present in one of three general disease phases: chronic phase, accelerated phase, or blast crisis. TKIs are the initial treatment of choice for most patients with chronic phase CML. The response to therapy is monitored periodically with blood counts, bone marrow biopsy, and polymerase chain reaction (PCR) of the peripheral blood. Comorbid conditions: smoker with over 30 pack years cigarettes (started at age 18 averaging 1/2 to 1 pack of cigarettes daily), hypertension, coronary artery disease and dyslipidemia. Plan: #1- I reviewed the most recent NCCN guidelines and after conclusion of initial work-up for chronic myeloid leukemia can start therapy on April 28, 2020. His pretreatment left ventricular ejection fraction normal at 55% March 2020. His EKG showed normal sinus rhythm with a normal QT/QTc 392/44 ms Hepatitis serologies showed no active chronic hepatitis I favor second-generation agent such as dasatinib 100 mg daily. He will be monitored for toxicity weekly in the first month of starting treatment, less often thereafter. He attended a formal chemotherapy teaching session was FERMENTER HELPER and was provided with educational material. Main side effects of dasatinib were reviewed. #2-refer to lung cancer screening register and smoking cessation discussed.. Patient was seen with his , impression and plan discussed. Sawyer Delgado MD Transit Driver, [facility] Divisions of Medical Oncology Hematology Department of Internal Medicine [place] [id number] This note was generated using a voice recognition system software. Although it was reviewed by the author prior to finalization, it may still contain incorrect words, spelling, and punctuation that were not noted when reviewing prior to saving. If a clinically significant typo or inaccurately typed phrase is noted, please notify the author. Medications: Prescriptions This Visit Medication Instructions Recorded Ascorbic Acid [Vitamin C] 1,000 mg PO DAILY 04/05/20 Vitamin E 200 unit PO DAILY 04/05/20 Primary Care Provider: Dr. Jocelin Saunders DO Referring Provider: Dr. Jocelin Saunders DO 04/28/20 8435 <Electronically signed by Sawyer Delgado MD> Date Sawyer Delgado MD Cosigner Signature: Date (if applicable) CC: DO Jocelin Wisemanon Start: 04-20-2020 End: 04-20-2020 Oncology Visit Report Comments: See Note; NOTES: [facility] [place] [address] OFFICE VISIT Date of Service: 04/20/20 1020 MR#: [id number] Acct: [id number] Name: FREDERIC OVALLES Rep #: [id number] : 1960 From: Savi Rodriguez NP FERMENTER HELPER -C Age/Sex: 59/M Location: OMD Status: Signed Subjective - Date of Service Date of Service:: 04/20/20 - Chief Complaint Chemotherapy education- dasatinib - History of Present Illness 59-year-old gentleman with no known chronic inflammatory or infectious diseases referred in consultation because of a persistent leukocytosis. March 2020 peripheral blood BCR ABL by FISH was positive consistent with chronic myeloid leukemia. - Interval History The patient is presenting to clinic accompanied by spouse, Lauren for chemotherapy education. 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 Retired, but describes lifestyle as active. Reports good support system. Bruising easily, denies overt episodes of bleeding. - Past Medical/Social History Social History Social History: No changes Smoking Status Current every day smoker Review of Systems Constitutional:: Denies: Fever, Sweats, Weight loss, Appetite change, Chills Cardiovascular:: Denies: Chest pain, Palpitations, Dyspnea on exertion, Orthopnea, PND, Shortness of breath Respiratory: Denies: Cough, Hemoptysis, Shortness of Breath, Wheezing Gastrointestinal:: Denies: Abdominal pain, Nausea, Vomiting, Diarrhea, Constipation, Hematochezia Genitourinary: Denies: Dysuria, Hematuria, 15, Flank pain Musculoskeletal:: Denies: Back pain, Myalgia, Arthralgia Skin: Denies: Rash, Skin Changes, Wounds Neurological:: Denies: Headache, Dizziness, Numbness, Tingling, Visual changes, Tinnitus, Hearing loss Psychiatric: Denies: Anxiety, Depression, Suicidal Ideations Vital Signs Temperature 98.8 F 04/20/20 10:08 Temperature Source Temporal 04/20/20 10:08 Pulse Rate 81 04/20/20 10:08 Respiratory Rate 14 04/20/20 10:08 Blood Pressure 114/72 04/20/20 10:08 Blood Pressure Mean 86 04/20/20 10:08 Blood Pressure Source Monitor 04/20/20 10:08 Blood Pressure Position Sitting 04/20/20 10:08 Blood Pressure Location Left Arm 04/20/20 10:08 Pulse Ox 94 04/20/20 10:08 Oxygen Delivery Method Room Air 04/20/20 10:08 - Physical Exam General: Alert, Oriented x3, No apparent distress HEENT: Atraumatic, PERRLA, EOMI, Normocephalic Oropharynx:: Negative for: Dry mucosa, Ulcerated lesions Neck:: Supple, Trachea midline. Negative for: JVD, bilateral Cardiac:: Regular rate, Regular rhythm, Normal S1, Normal S2. Negative for: Murmur Lungs: Clear to auscultation, Excusion symmetrical. Negative for: Rhonchi, Wheezes Abdomen:: Bowel sounds x 4, Soft, Non-tender, Non-distended. Negative for: Hepatosplenomegaly Extremities:: Negative for: Cyanosis, Edema Skin:: Ecchymosis - BUE in various stages of healing. Negative for: Lesions, Rash, Petechiae Psychiatric:: Appropriate affect, Euthymic Lymphatics:: Negative for: Cervical lymphadenopathy, Supraclavicular lymphadenopathy Assessment and Plan 59-year-old male with a mature neutrophilic leukocytosis first noted January 2020, progressively worsening. He has no known chronic inflammatory or infectious diseases. Was treated with 2 courses of antibiotics January 2020 for an infected injury to the right big toe that healed well with no evidence for residual local infection. BCR ABL profile with FISH is positive consistent with chronic myeloid leukemia. Patients with chronic myeloid leukemia (CML) can present in one of three general disease phases: chronic phase, accelerated phase, or blast crisis. TKIs are the initial treatment of choice for most patients with chronic phase CML. The response to therapy is monitored periodically with blood counts, bone marrow biopsy, and polymerase chain reaction (PCR) of the peripheral blood. His medical history is notable for being a smoker with over 30 pack years cigarettes, hypertension, coronary artery disease and dyslipidemia. Plan: 1- Systemic therapy with second generation TKI, dasatinib 100 mg daily. The patient has been thoroughly educated to risks/benefits associated with dasatinib. Specifically, he has been educated to proper storage and administration, potential side effects, recommendations for symptom management, and circumstances in which he should contact provider immediately, such as the development of any signs/symptoms of infection inclusive of temperature > 100.4. Encouraged to go directly to ED should fever occur outside normal clinic hours. He has been provided written educational information and after hours contact information. Dasatinib has been approved by his insurance and delivered to his home. He is instructed to hold medication, do not start until he sees Dr. Delgado next week. Greater than 50% of this one hour visit was spent in counseling and a significant amount of time was allotted for questions. All the patient's concerns were addressed to his satisfaction and he is agreeable to proceed. 2. Bone marrow aspirate and biopsy for morphology, cytogenetics, q. PCR for BCR ABL- Biopsy obtained 04/13/20. Cytogenetics are pending 3. Hepatitis B panel- Negative 4. Pre-TKI cardiac evaluation- Underwent echocardiography and an EKG earlier this morning. Results are pending. Patient to be evaluated by his resistor coater, Dr. Hsu in cardio onc clinic upon initiation of therapy. 5. Ultrasound abdomen to assess spleen size due to limited clinical ability to assess spleen because of his size and weight and qPCR on peripheral blood for BCR ABL pretreatment baseline- pending. RTO 04/28/20 as previously planned to review BMBX, splenic US and quant. BCR ABL. Savi Rodriguez, MSN, FILTER SCREEN CLEANER-C, AOCNP Medications: Prescriptions This Visit Medication Instructions Recorded Ascorbic Acid [Vitamin C] 1,000 mg PO DAILY 04/05/20 Vitamin E 200 unit PO DAILY 04/05/20 Primary Care Provider: Dr. Jocelin Saunders DO Referring Provider: Dr. Jocelin Saunders, - Problem List (1) Chronic myeloid leukemia Status: Chronic (2) Encounter for education Status: Acute 04/20/20 6511 <Electronically signed by Savi Rodriguez NP FERMENTER HELPER-C> Date Savi Rodriguez NP FERMENTER HELPER-C Cosigner Signature: Date (if applicable) CC: Jocelin Saunders Start: 04-20-2020 End: 04-21-2020 12 Lead EKG Comments: See Note; NOTES: [facility] Cardiovascular Services [address] [place] [address] 12 Lead EKG 04/20/20 0933 MR#: [id number] Acct: [id number] Name: FERDERIC OVALLES Rep #: [id number] : 1960 59 From: Hector Hsu MD Attending Dr: Dr. Sawyer Delgado MD Status: REG CLI Ordering Dr: Sawyer Delgado MD Date: 04/20/20 Location: US Sex: M C Admitted: Test Reason : MEDICATION Blood Pressure : / mmHG Vent. Rate : 076 BPM Atrial Rate : 076 BPM P-R Int : 136 ms QRS Dur : 088 ms QT Int : 392 ms P-R-T Axes : 022 -01 023 degrees QTc Int : 441 ms Normal sinus rhythm Normal ECG Confirmed by SHADI HICKS, HECTOR ([id number]), commercial production editor CASEY LESLIE ([id number]) on 04/21/2020 8:14:54 AM Referred By: Sawyer Delgado Confirmed By:HECTOR HSU MD 04/21/20813 Date Hector Hsu MD CC: Dr. Jocelin aSunders, DO; Dr. Sawyer Delgado MD Signed Sawyer Delgado Work Phone: Start: 04-20-2020 End: 04-20-2020 ONC Echo Complete W/ Contrast Comments: See Note; NOTE S: [facility] Cardiovascular Services [address] [place] [address] ONC Echo Complete W/ Contrast 04/20/20 0844 MR#: [id number] Acct: [id number] Name: FREDERIC OVALLES Rep #: [id number] : 1960 59 From: Hector Hsu MD Attending Dr: Dr. Sawyer Delgado MD Status: REG CLI Ordering Dr: Sawyer Delgado MD Date: 04/20/20 Location: US Sex: M C Admitted: Reason For Study: Pre Chemo Procedure This was a 2D Doppler, Color Flow transthoracic echocardiogram. Myocardial strain analysis was performed in this exam to aid in the assessment of cardiac function. The study was technically difficult. Contrast injection was performed. Exam performed in department. Left Ventricle Normal LV size. Left ventricular systolic function is normal. The estimated ejection fraction is 55 %. The global longitudinal strain is normal. The global longitudinal strain = -18.1 % (normal). No regional wall motion abnormalities noted. Right Ventricle Normal RV size. Normal systolic function. Atria Normal left atrium. Normal right atrium. Mitral Valve Normal mitral valve. Mild (1+) eccentric mitral valve insufficiency. Tricuspid Valve Normal tricuspid valve. Mild (1+) tricuspid valve insufficiency. Pulmonary artery systolic pressure is 26 mmHg. Aortic Valve Normal aortic valve. Trisinus/trileaflet aortic valve. Pulmonic Valve The pulmonic valve is not well visualized. Great Vessels Mildly dilated aortic root. The pulmonary artery is normal size. Normal inferior vena cava. Pericardium/Pleural No pericardial effusion. Medication 22 gauge I.V. with prn adaptor inserted into right arm. Diluted definity 4ml given slow IV push to enhance endocardial definition. MMode/2D Measurements Calculations LVIDd: 5.1 cm IVSd: 0.88 cm Ao root diam: 4.0 cm LVIDs: 3.1 cm LVPWd: 1.2 cm LA dimension: 3.7 cm RVDd: 4.0 cm FS: 39.6 % LAV(MOD-bp): 56.3 ml LVAd ap4: 29.0 cm2 SV(MOD-sp4): 58.4 ml LAV(MOD-bp) Indexed: 24.4 ml/m2 EDV(MOD-sp4): 98.3 ml LAV(MOD-sp2): 49.1 ml EDV(sp4-el): 100.3 ml LAV(MOD-sp4): 57.3 ml LVAs ap4: 17.4 cm2 ESV(MOD-sp4): 40.0 ml ESV(sp4-el): 41.2 ml EF(MOD-sp4): 59.3 % EF(sp4-el): 58.9 % SV(sp4-el): 59.1 ml LA A4 area: 19.7 cm2 RA A4 area: 18.6 cm2 Time Measurements MV dec time: 0.34 sec Doppler Measurements Calculations MV E max dianna: 55.8 cm/sec Lat Peak E' Dianna: 6.5 cm/sec Med Peak E' Dianna: 6.9 cm/sec MV A max dianna: 64.2 cm/sec E/E' lat: 8.6 E/E' med: 8.1 MV E/A: 0.87 MV V2 max: 64.9 cm/sec MV P1/2t max dianna: 63.0 cm/sec Ao V2 max: 107.8 cm/sec MV max P.7 mmHg MV P1/2t: 103.3 msec Ao max P.7 mmHg MV V2 mean: 41.7 cm/sec MV mean P.80 mmHg MV dec slope: 178.7 cm/sec2 MV V2 VTI: 19.4 cm MVA(P1/2t): 2.1 cm2 LV V1 max: 101.4 cm/sec PA V2 max: 100.2 cm/sec TR max dianna: 236.0 cm/sec LV V1 max P.1 mmHg TR max P.3 mmHg Interpretation Summary Normal LV size. Left ventricular systolic function is normal. The estimated ejection fraction is 55 %. The global longitudinal strain is normal. The global longitudinal strain = -18.1 % (normal). Contrast injection was performed. _ Ordering Physician: Sawyer Delgado Referring Physician: Jocelin Saunders M.D. Performed By: Hung Leger RCS 04/20/201328 Date Hector Hsu MD CC: Dr. Jocelin Saunders, DO; Dr. Sawyer Delgado MD Date Dictated: 04/20/20843 Date Transcribed: 04/20/201328 Wool Supplier: Signed Sawyer Delgado Work Phone: Start: 04-13-2020 End: 04-13-2020 Biopsy/Inj or Needle Placement Comments: See Note; NOT ES: [facility] Imaging Services [address] [place] [address] Biopsy/Inj or Needle Placement MR#: [id number] Acct: [id number] Name: FREDERIC OVALLES Rep #: [id number] : 1960 M 59 From: Jeovanny medeiros MD PCP: Dr. Jocelin Saunders, Status: [facility] Study: Biopsy/Inj or Needle Placement Date of Exam: 0 04/13/20 Exam# [id number] Ordering Dr: Sawyer Delgado MD PROCEDURE: CT GUIDED BONE marrow biopsy and bone marrow aspirate. DATE: 04/13/2020. INDICATION: Male, 59 years old. The patient has a history of chronic myeloid leukemia. PHYSICIAN: Jeovanny Swan M.D. RADIATION DOSAGE (If Supplied By Facility): CTDIvol = ( 15.5 ) mGy, DLP = ( 295.38 ) mGycm. Individualized dose optimization techniques were utilized. PROCEDURE: The risks, benefits, and alternatives to the procedure were explained to the patient. The specific risk of hemorrhage requiring further treatment or intervention was detailed and accepted. Follow-up instructions were discussed with the patient as well. Written informed consent was obtained. The patient was brought into the CT suite and placed in the prone position. . An appropriate entry site was identified. The overlying skin was prepped and draped in the usual sterile fashion. 1% lidocaine was administered subcutaneously for local anesthesia. Conscious sedation was performed. The patient received 3 mg of VERSED and 100 mcg of FENTANYL intravenously. The patient was monitored by the department nurse. Under CT guidance, a bone marrow biopsy and bone marrow aspirates of the posterior aspect of the right iliac bone were performed utilizing an 11-gauge bone marrow biopsy kit. The specimens were then placed in the appropriate fluid and transported to the laboratory for analysis. Hemostasis was obtained. The patient tolerated the procedure well without immediate complications. CT/Biopsy/Inj or Needle Placement IMPRESSION: Successful CT guided bone marrow biopsy and aspiration of the posterior aspect of the right iliac bone, as described above. Conscious sedation protocol was followed. The patient tolerated the procedure well. Electronically Signed: Jeovanny Swan, at 10:51 EDT , Service support , CC: Dr. Jocelin Saunders DO; Dr. Sawyer Dlegado MD Wool Supplier: Signed Sawyer Delgado Work Phone: Start: 04-13-2020 End: 04-13-2020 Spleen Comments: See Note; NOTES: [facility] Imaging Services [address] [address] Spleen MR#: [id number] Acct: [id number] Name: FREDERIC OVALLES Rep #: [id number] : 1960 M 59 From: Jeovanny medeiros MD PCP: Dr. Jocelin Suanders DO Status: REG CLI Study: Spleen Date of Exam: 04/13/20 Exam# [id number] Ordering Dr: Sawyer Delgado MD STUDY: ABDOMINAL ULTRASOUND - left UPPER QUADRANT REASON FOR VISIT: Male, 59 years old EVALUATE SPLEEN SIZE CHRONIC MYELOID LEUKEMIA TECHNIQUE: Ultrasound evaluation of the right upper quadrant was performed with real-time and static juan-scale imaging. TECHNICAL QUALITY: Adequate. COMPARISON: None. FINDINGS: Spleen: There is evidence of splenomegaly. The spleen measures 13.4 cm x 6.9 cm x 5.2 cm. It is of homogeneous echotexture. Left Kidney: Normal size of the left kidney. The left kidney measures 12.1 cm x 5.8 cm x 5.5 cm. Normal renal cortex. The left cortex measures 1.6 cm. There is no demonstrated renal mass or cyst. There is no left hydronephrosis. US/Spleen IMPRESSION: Splenomegaly. The spleen measures 13.4 cm x 6.9 cm x 5.2 cm. It is of homogeneous echotexture. Electronically Signed: Jeovanny Swan, at 12:17 EDT , Service support , CC: Dr. Jocelin Saunders DO; Dr. Sawyer Delgado MD Wool Supplier: Signed Sawyer Delgado Work Phone: Start: 04-05-2020 End: 04-05-2020 Oncology Visit Report Comments: See Note; NOTES: [facility] [address] [place] [address] OFFICE VISIT Date of Service: 04/05/20 1001 MR#: [id number] Acct: [id number] Name: FREDERIC OVALLES Rep #: [id number] : 1960 From: Sawyer Delgado MD Age/Sex: 59/M Location: OMD Status: Signed - Problem List (1) Chronic myeloid leukemia Status: Chronic - Date of Service Date of Service:: 04/05/20 - Chief Complaint Elevated white blood count, - History of Present Illness 59-year-old gentleman with no known chronic inflammatory or infectious diseases referred in consultation because of a persistent leukocytosis. March 2020 peripheral blood BCR ABL by FISH was positive consistent with chronic myeloid leukemia. - Past Medical/Social History Social History Social History: No changes Smoking Status Current some day smoker Review of Systems Constitutional:: Denies: Fever, Sweats, Weight loss, Appetite change, Chills Cardiovascular:: Denies: Chest pain, Palpitations, Dyspnea on exertion, Orthopnea, PND, Shortness of breath Respiratory: Denies: Cough, Hemoptysis, Shortness of Breath, Wheezing Gastrointestinal:: Denies: Abdominal pain, Nausea, Vomiting, Diarrhea, Constipation, Hematochezia Genitourinary: Denies: Dysuria, Hematuria, 15, Flank pain Musculoskeletal:: Denies: Back pain, Myalgia, Arthralgia Skin: Denies: Rash, Skin Changes, Wounds Neurological:: Denies: Headache, Dizziness, Visual changes, Tinnitus, Hearing loss Psychiatric: Denies: Anxiety, Depression, Homicidal Ideations, Suicidal Ideations Vital Signs Temperature 98 F 04/05/20 09:49 Temperature Source Temporal 04/05/20 09:49 Pulse Rate 73 04/05/20 09:49 Respiratory Rate 16 04/05/20 09:49 Blood Pressure 146/86 H 04/05/20 09:49 Blood Pressure Mean 106 04/05/20 09:49 Blood Pressure Source Monitor 04/05/20 09:49 Blood Pressure Position Sitting 04/05/20 09:49 Blood Pressure Location Left Arm 04/05/20 09:49 Pulse Ox 97 04/05/20 09:49 Oxygen Delivery Method Room Air 04/05/20 09:49 - Physical Exam General: Alert, Oriented x3, No apparent distress, - - Overweight, ECOG 0 Psychiatric:: Anxious Laboratory Data: Laboratory Tests 03/30/20 Range/Units 11:01 Miscellaneous Test Assessment and Plan 59-year-old male with a mature neutrophilic leukocytosis first noted January 2020, progressively worsening. He has no known chronic inflammatory or infectious diseases. Was treated with 2 courses of antibiotics January 2020 for an infected injury to the right big toe that healed well with no evidence for residual local infection. BCR ABL profile with FISH is positive consistent with chronic myeloid leukemia. Patients with chronic myeloid leukemia (CML) can present in one of three general disease phases: chronic phase, accelerated phase, or blast crisis. TKIs are the initial treatment of choice for most patients with chronic phase CML. The response to therapy is monitored periodically with blood counts, bone marrow biopsy, and polymerase chain reaction (PCR) of the peripheral blood. His medical history is notable for being a smoker with over 30 pack years cigarettes, hypertension, coronary artery disease and dyslipidemia. Plan: I reviewed the most recent NCCN guidelines and advised initial work-up for chronic myeloid leukemia followed by systemic therapy. That would include: 1-bone marrow aspirate and biopsy for morphology, cytogenetics, q. PCR for BCR ABL. 2-hepatitis B panel (reactivation has been reported in patients on TKI therapy, referral to hepatology for treatment before initiation of therapy would be indicated if he is positive). 3-pre-TKI cardiac evaluation to include echocardiography and an EKG. 4-ultrasound abdomen to assess spleen size due to limited clinical ability to assess spleen because of his size and weight. 5- qPCR on peripheral blood for BCR ABL pretreatment baseline. 6-systemic therapy with TKI to start after completion of above initial work-up. I favor second- generation agent such as dasatinib 100 mg daily. Patient was seen with his , impression and plan discussed. Follow-up after completion of initial work-up and prior to starting systemic therapy Sawyer Delgado MD Transit Driver, [facility] Divisions of Medical Oncology Hematology Department of Internal Medicine [place] [id number] This note was generated using a voice recognition system software. Although it was reviewed by the author prior to finalization, it may still contain incorrect words, spelling, and punctuation that were not noted when reviewing prior to saving. If a clinically significant typo or inaccurately typed phrase is noted, please notify the author. Medications: Prescriptions This Visit Medication Instructions Recorded Ascorbic Acid [Vitamin C] 1,000 mg PO DAILY 04/05/20 Vitamin E 200 unit PO DAILY 04/05/20 Primary Care Provider: Dr. Jocelin Saunders DO Referring Provider: Dr. Jocelin Saunders DO 04/05/20 1053 <Electronically signed by Sawyer Delgado MD> Date Sawyer Delgado MD Cosigner Signature: Date (if applicable) CC: DO Jocelin Wiseman Start: 03-14-2020 End: 03-14-2020 Oncology Visit Report Comments: See Note; NOTES: [facility] [place] [address] OFFICE VISIT Date of Service: 03/14/20 1303 MR#: [id number] Acct: [id number] Name: FREDERIC OVALLES Rep #: [id number] : 1960 From: Sawyer Delgado MD Age/Sex: 59/M Location: OMD Status: Signed - Problem List (1) Leukocytosis Status: Chronic - Date of Service Date of Service:: 03/14/20 - Chief Complaint Elevated white blood count - History of Present Illness 59-year-old gentleman with no known chronic inflammatory or infectious diseases referred in consultation because of a persistent leukocytosis. His medical history is notable for being a smoker, suffered an accidental injury to the right big toe in December 2019 that was complicated by a wound infection and treated with 2 courses of antibiotics the last was January 2020 and is improving. - Interval History No change from March 07 visit "I feel good" and the right toe that was infected healed well - Past Medical/Social History Social History Social History: No changes Smoking Status Current some day smoker Review of Systems Constitutional:: Denies: Fever, Sweats, Weight loss, Appetite change, Chills Musculoskeletal:: Reports: - - Right to site of previous infection healed well no pain or redness or swelling Vital Signs Temperature 98.7 F 03/14/20 12:55 Temperature Source Temporal 03/14/20 12:55 Pulse Rate 91 03/14/20 12:55 Respiratory Rate 16 03/14/20 12:55 Blood Pressure 146/82 H 03/14/20 12:55 Blood Pressure Mean 103 03/14/20 12:55 Blood Pressure Source Monitor 03/14/20 12:55 Blood Pressure Position Sitting 03/14/20 12:55 Blood Pressure Location Right Arm 03/14/20 12:55 Pulse Ox 97 03/14/20 12:55 Oxygen Delivery Method Room Air 03/14/20 12:55 - Physical Exam General: Alert, Oriented x3, No apparent distress, - - ECOG 0 Extremities:: - - Right toe scarring but no evidence of local infection Laboratory Data: Laboratory Tests 10/13/18 02/05/20 03/07/20 12:40 10:05 14:42 WBC 6.4 17.4 H 29.8 H Absolute Neuts (auto) 10.6 H 21.8 H ESR 14 Assessment and Plan 59-year-old male with a mature neutrophilic leukocytosis first noted January 2020, progressively worsening. He has no known chronic inflammatory or infectious diseases. Was treated with 2 courses of antibiotics January 2020 for an infected injury to the right big toe that healed well with no evidence for residual local infection. His medical history is notable for being a smoker with over 30 pack years cigarettes, hypertension, coronary artery disease and dyslipidemia. At this juncture the most likely cause for this persistent, progressive and unexplained leukocytosis is a myeloproliferative neoplasm. Plan: Proceed to testing for chronic myeloid leukemia with BCR-ABL and if negative reflex to JAK2, CALR, and MPL. Follow-up once test result is available. Impression and plan discussed. Sawyer Delgado MD Transit Driver, [facility] Divisions of Medical Oncology Hematology Department of Internal Medicine [place] [facility] [place] [phone] This note was generated using a voice recognition system software. Although it was reviewed by the author prior to finalization, it may still contain incorrect words, spelling, and punctuation that were not noted when reviewing prior to saving. If a clinically significant typo or inaccurately typed phrase is noted, please notify the author. Primary Care Provider: Dr. Jocelin Saunders DO Referring Provider: Dr. Jocelin Saunders DO 03/14/20 1319 <Electronically signed by Sawyer Delgado MD> Date Sawyer Delgado MD Cosigner Signature: Date (if applicable) CC: DO Jocelin Wiseman Start: 03-07-2020 End: 03-07-2020 Oncology History and Physical Comments: See Note; NOTE S: [facility] Medical Records Department [address] [place] [address] History and Physical 03/07/20 1427 MR#: [id number] Acct: [id number] Name: FREDERIC OVALLES Rep #: [id number] : 1960 59 From: Sawyer Delgado MD PCP: Dr. Jocelin Saunders DO Status:REG RCR Y Location: OMD - Problem List (1) Leukocytosis Status: Acute Subjective Date of Service:: 03/07/20 Chief Complaint: High white blood count History of Present Illness: 59-year-old gentleman with no known chronic inflammatory or infectious diseases referred in consultation because of a persistent leukocytosis. His medical history is notable for being a smoker, suffered an accidental injury to the left big toe in December 2019 that was complicated by a wound infection and treated with 2 courses of antibiotics the last was January 2020 and is improving. Power of Can Carrier: No Living Will: No Health History: Past Medical History (Last Reviewed 03/07/20 @ 14:09 by Parris Darby) Atherosclerosis of coronary artery of [place] heart without angina pectoris (Chronic) History of ST elevation myocardial infarction (STEMI) (Resolved 01/2017) Old anterior wall myocardial infarction (Chronic) Essential (primary) hypertension (Chronic) Hyperlipidemia (Chronic) Fatigue (Acute) Fracture of great toe, right, open (Acute) Leukocytosis (Acute) Near syncope (Acute) Unspecified injury of right foot, sequela (Acute) History of back problems (Chronic) Nicotine dependence (Chronic) Obesity (BMI 30.0-34.9) (Chronic) Hiatal hernia with GERD (Resolved) Past Surgical History (Last Reviewed 03/07/20 @ 14:09 by Parris Darby) History of coronary artery stent placement (Resolved 01/2017) History of bilateral inguinal hernia repair (Resolved 08/2018) Status post laparoscopic Migue fundoplication (Resolved 10/15/18) Family History (Last Reviewed 03/07/20 @ 14:09 by Parris Darby) Father Colon cancer Diabetes Heart disease Hypertension CAD (coronary artery disease) Sister Breast cancer Mother CAD (coronary artery disease) Hypertension Heart disease Social History Social History: No changes Smoking Status Current some day smoker Allergies/Adverse Reactions: Allergy/AdvReac Type Severity Reaction Status Date / Time No Known Allergies Allergy Verified 03/07/20 14:09 Risk Factors Social History Social History: No changes Smoking Status Current some day smoker Tobacco Risk Data: Tobacco Risk Smoking Status Current some day smoker Type of tobacco: Smokeless tobacco usage: Unknown Items/Day: Year started: Years used: Counseled to quit/cut down: Reason for no counseling performed: Reason for no pharmacotherapy: Tobacco use comments: Passive smoke exposure: Yes Substance Risk Drug use: No Caffeine use [drinks/day]: Alcohol use: Yes Type of alcohol: special occassion Drinks per day: Has patient felt the need to cut down: Has the patient been annoyed by complaints: Has the patient felt guilty about drinking: Has the patient needed an eye plastic molding operator in 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 Denies: Fever, Sweats, Appetite change, Chills Cardiovascular:: Denies: Chest pain, Palpitations, Dyspnea on exertion, Orthopnea, PND, Shortness of breath Respiratory: Denies: Cough, Hemoptysis, Shortness of Breath, Wheezing Gastrointestinal:: Denies: Abdominal pain, Nausea, Vomiting, Diarrhea, Constipation, Hematochezia Genitourinary: Denies: Dysuria, Hematuria, 15, Flank pain Musculoskeletal:: Reports: - - Accidental injury left big toe December 2019 healed. Denies: Back pain, Myalgia, Arthralgia Skin: Denies: Rash, Skin Changes, Wounds Neurological:: Denies: Headache, Dizziness, Visual changes, Tinnitus, Hearing loss Psychiatric: Denies: Anxiety, Depression, Homicidal Ideations, Suicidal Ideations Vital Signs Pulse Rate 81 03/07/20 14:10 Respiratory Rate 14 03/07/20 14:10 Blood Pressure Source Monitor 03/07/20 14:10 Blood Pressure Position Sitting 03/07/20 14:10 Blood Pressure Location Left Arm 03/07/20 14:10 Pulse Ox 96 03/07/20 14:10 Oxygen Delivery Method Room Air 03/07/20 14:10 - Physical Exam General: Alert, Oriented x3, No apparent distress, - - ECOG 0 HEENT: Atraumatic, PERRLA, EOMI, Normocephalic Oropharynx:: Dry mucosa Neck:: Supple, Trachea midline. Negative for: JVD, bilateral Cardiac:: Regular rate, Regular rhythm, Normal S1, Normal S2. Negative for: Murmur Lungs: Clear to auscultation, Excusion symmetrical. Negative for: Rhonchi, Wheezes Abdomen:: Soft, Non-tender, Non-distended. Negative for: Hepatosplenomegaly Extremities:: - - Left big to deformity and loss of nail from injury of December 2019 but no local evidence of acute inflammation. Negative for: Cyanosis, Edema Neurological: Neuro grossly intact Skin:: Negative for: Lesions, Rash, Petechiae, Ecchymosis Psychiatric:: Appropriate affect, Euthymic Lymphatics:: Negative for: Cervical lymphadenopathy, Supraclavicular lymphadenopathy, Axillary lymphadenopathy Laboratory Data: Laboratory Tests 10/13/18 02/05/20 12:40 10:05 WBC 6.4 17.4 H Hgb 15.5 Hct 46.5 MCV 90.1 Plt Count 200 Absolute Neuts (auto) 10.6 H Absolute Lymphs (auto) 4.34 Assessment and Plan 59-year-old male with a mature neutrophilic leukocytosis first noted January 2020. He has no known chronic inflammatory or infectious diseases. Was treated with 2 courses of antibiotics January 2020 for an infected injury to the left big toe that is now healing well with no evidence for local infection. His medical history is notable for being a smoker with over 30 pack years cigarettes, hypertension, coronary artery disease and dyslipidemia. The most likely etiology for his leukocytosis is a reactive including to smoking. Less likely a myeloproliferative neoplasm. Plan: 1. Update CBC, differential, review a smear, ESR. 2. For cancer screening he is up-to-date with a colonoscopy less than 5 years ago. Patient, to his knowledge, has not had PSA for prostate cancer screening nor CT chest for early detection of lung cancer. Therefore, we will obtain a screening PSA today and refer to the lung cancer screening register at [facility]. 3. Follow-up in 1 week. Impression and plan discussed. Sawyer Delgado MD Transit Driver, [facility] Divisions of Medical Oncology Hematology Department of Internal Medicine [place] [phone] This note was generated using a voice recognition system software. Although it was reviewed by the author prior to finalization, it may still contain incorrect words, spelling, and punctuation that were not noted when reviewing prior to saving. If a clinically significant typo or inaccurately typed phrase is noted, please notify the author. Primary Care Provider: Dr. Jocelin Saunders DO Referring Provider: Dr. Jocelin Saunders DO 03/07/20 6096 <Electronically signed by Sawyer Delgado MD> Date Sawyer Delgado MD Cosigner Signature: Date (if applicable) CC: Dr. Jocelin Saunders DO; Dr. Sawyer Delgado MD Signed Jocelin Saunders Start: 02-11-2020 End: 02-11-2020 Toe(s) Min 2 Views Comments: See Note; NOTES: [facility] Imaging Services [address] [place] [address] Toe(s) Min 2 Views MR#: [id number] Acct: [id number] Name: FREDERIC OVALLES Rep #: [id number] : 1960 M 59 From: Roque Wagner MD PCP: Dr. Jocelin Saunders DO Status: REG CLI Study: Toe(s) Min 2 Views Date of Exam: 02/11/20 Exam# [id number] Ordering Dr: Jocelin Saunders DO STUDY: X-RAY RIGHT FOOT, GREAT TOE REASON FOR EXAM: Male, 59 years old. FX GREAT TOE, TO RULE OUT OSTEO INFECTION TECHNIQUE: 4 view(s) of the toe were obtained. COMPARISON: None. FINDINGS: There is an acute minimally displaced evulsion fracture in the distal phalanx of the right toe with soft tissue swelling. Joint spaces well-preserved, no erosive osseous lesion or subcutaneous emphysema. No other demonstrated fracture. RAD/Toe(s) Min 2 Views IMPRESSION: Acute minimally displaced avulsion type fracture in the distal medial aspect of the distal phalanx of the great toe with soft tissue swelling Electronically Signed: Asaf Wagner MD at 10:47 EDT , Service support , CC: Dr. Jocelin Saunders DO Wool Supplier: Signed Jocelin Saunders Work Phone: Start: 12-15-2019 End: 12-15-2019 Cardiology Visit Report Comments: See Note; NOTES: [facility] [address] [place] [address] OFFICE VISIT Date of Service: 12/15/19 MR#: [id number] Acct: [id number] Name: FREDERIC OVALLES Rep #: [id number] : 1960 Provider: Dr. Hector Hsu MD Age/Sex: 59/M Location: [facility] Status: Signed HPI HPI History of Present Illness Details: This is a 59-year-old gentleman that presents here today for a telephone visit. He has a history of coronary artery disease with myocardial infarction in 2017 with 2 stents placed at that time. One was in the proximal left anterior descending artery and the other was in the mid right coronary artery. He also has a history of hypertension, hyperlipidemia. From a cardiac standpoint, patient is doing well. He does not have any chest discomfort/heaviness/tightness . His exercise tolerance is stable for his age. He does not have any worsening symptoms of shortness of breath. He does get SOB with exertional activity but it would be what he would expect. He denies any PND. He does not have any orthopnea. He does not have any symptoms of congestive heart failure. He does not have any palpitations that he is aware of. He does not have any lightheadedness or dizziness. He does not have any near-syncope or syncope. He tells me that he has been having some issues with excessive sweating and he does not know the etiology. He has gained some weight to this last year. He does not have any lower extremity edema. He does not have any symptoms of claudication. Physical exam was not performed today and neither was a blood pressure. Intake Vital Signs 12/15/19 Height 6 ft 12/15/19 Weight: 230 lb 12/15/19 BMI 31.1 12/15/19 BMI 30.6 Intake Visit Reasons: 9 m fu-PHONE VISIT Allergies No Known Allergies Allergy (Verified 12/15/19 10:21) Medications aspirin 81 mg tablet,delayed release 81 mg PO DAILY 09/02/18 [History Confirmed 12/15/19] carvedilol 6.25 mg tablet 6.25 mg PO BID 09/02/18 [History Confirmed 12/15/19] cholecalciferol (vitamin D3) 25 mcg (1,000 unit) capsule 1,000 unit PO DAILY 09/02/18 [History Confirmed 12/15/19] ramipril 2.5 mg capsule 2.5 mg PO DAILY 09/02/18 [History Confirmed 12/15/19] atorvastatin 80 mg tablet 80 mg PO QHS tab 12/15/19 [History Confirmed 12/15/19] Ejection fraction %: 65 to 70 Nurse's Note: Vital Signs were no obtained because this was a phone visit and the patient did not have access to a blood pressure cuff. [facility] Medical History Atherosclerosis of coronary artery of [place] heart without angina pectoris (Chronic) History of ST elevation myocardial infarction (STEMI) (Resolved 01/2017) Old anterior wall myocardial infarction (Chronic) Essential (primary) hypertension (Chronic) Hyperlipidemia (Chronic) History of back problems (Chronic) Nicotine dependence (Chronic) Obesity (BMI 30.0-34.9) (Chronic) Hiatal hernia with GERD (Resolved) Surgical History History of coronary artery stent placement (Resolved 01/2017) History of bilateral inguinal hernia repair (Resolved 08/2018) Status post laparoscopic Migue fundoplication (Resolved 10/15/18) Family History Father Colon cancer Diabetes Heart disease Hypertension CAD (coronary artery disease) Sister Breast cancer Mother CAD (coronary artery disease) Hypertension Heart disease Social History (Updated 12/15/19 @ 10:[address] Hector Hsu MD) Smoking Status: Current some day smoker alcohol intake: current alcohol intake frequency: a few times a week Alcohol type: beer ROS Const Const: Positive for excessive sweating; negative for fatigue, weakness, headache(s), frequent falls or difficulty sleeping Eyes Eyes: Negative for loss of peripheral vision, transient loss of vision, blurry vision, double vision or tunnel vision ENT ENT: Negative for headache(s), dizziness, Nosebleed/epistaxis or balance problems Cardio Chest Pain: No Palpitations: No Edema: None Muscle aches with walking: None Resp Respiratory: Negative for SOB with activity, SOB at rest, SOB orthopnea SOB lying down, Cough or paroxysmal nocturnal dyspnea GI GI: Negative nausea, vomiting, heartburn or black,tarry stools : Negative for hematuria Musc Musc: Negative for muscle aches/ myalgia, muscle weakness, joint pain or balance problems Skin Skin: Negative non-healing lesions, rash or unusual bruising Neuro Neuro: Negative for dizziness, lightheadedness, near syncope, syncope, orthostatic symptoms, frequent falls, headache(s), weakness, blurry vision, double vision or lack of coordination Reynaldo Hematologic/Lymphatic: Negative for easy bleeding or easy bruising Endo Endo: Positive for excessive sweating; negative for fatigue or increased thirst/drinking Psych Psych: Negative for anxiety or depression Allergy Allergy/Immunology: Negative for hives, Negative for rash Cardiology Exam Const Physical exam was not completed because this was a phone visit. Assessment Plan 1. History of coronary artery stent placement Z95.5 [id number]-Wmcg LAD 4.0 x 20 mm Synergy, NICA-Mid RCA w/ 4.0 x ?mm Synergy 01/20/2017 Plan He does have a history of previous coronary artery stenting. My recommendation is for him to continue the current medical therapy without any changes. Last stress test done in August 2018 did not demonstrate any evidence of ischemia. This was a preoperative stress test. 2. Essential (primary) hypertension I10 Plan His blood pressure appears to have been decent. His last echocardiogram in August 2018 demonstrated stage I diastolic dysfunction, estimated EF of 65%, and no wall motion abnormalities noted. 3. Pure hypercholesterolemia E78.00 Plan He does have a history of hyperlipidemia. The plan will be for him to continue the current medical therapy. No other changes will be made. Plan Detail Additional Comments This is a telehealth visit in lieu of in person visit due to nationwide COVID ??? 19 emergency. Verbal consent was obtained from the patient prior to initiation of this visit. Live video connection/telephone call between my location and the patient???s location was used for this visit. Patients name and date of were confirmed verbally. I spent a total of 11 minutes of time during this real-time, interactive virtual clinical encounter, which was conducted using telephone/live video technology. Greater than 50% of the time was devoted to counseling and coordinating care including the review of records, pertinent lab data and studies, discussing diagnostic evaluation and work up, planned therapeutic interventions and future disposition of care. All questions from patient were answered. 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) Coding Level of Care Code Attention Crystalizer Diagnoses History of coronary artery stent placement Z95.5 Essential (primary) hypertension I10 Pure hypercholesterolemia E78.00 ?Hyperlipidemia type: pure hypercholesterolemia Time Spent (min) 11 Comment 93347 Coding Level of Care Code Attention Jessica Diagnoses History of coronary artery stent placement Z95.5 Essential (primary) hypertension I10 Pure hypercholesterolemia E78.00 ?Hyperlipidemia type: pure hypercholesterolemia Time Spent (min) 11 Comment 90809 Supplemental Info Supplemental Information Diagnostics Echocardiogram 09/04/18 Stress Test Nuclear Medicine 09/04/18 Stress Test 09/04/18 Chest X-Ray 10/27/18 12/15/19 1040 <Electronically signed by Hector Hsu MD> Date Hector Ovallesigner Signature: Date (if applicable) CC: DO Jocelin Wiseman Start: 03-19-2019 End: 03-19-2019 Cardiology Visit Report Comments: See Note; NOTES: [facility] [address] [place] [address] OFFICE VISIT Date of Service: 03/19/19 MR#: [id number] Acct: [id number] Name: MARISAPATRICIAFREDERIC Alyx Rep #: [id number] : 1960 Provider: Meron Junior Age/Sex: 58/M Location: [facility] [place] Status: Signed HPI HPI History of Present Illness Details: This is a 58-year-old gentleman that presents here today for a cardiovascular follow-up. He has a history of coronary artery disease with myocardial infarction in 2017 with 2 stents placed at that time. He also has a history of hypertension, hyperlipidemia. From a cardiac standpoint, patient is doing well. He does not have any chest discomfort/heaviness/tightness . His exercise tolerance is stable for his age. He does not have any worsening symptoms of shortness of breath. He does get SOB with exertional activity but it would be what he would expect. He denies any PND. He does not have any orthopnea. He does not have any symptoms of congestive heart failure. He does not have any palpitations that he is aware of. He does not have any lightheadedness or dizziness. He does not have any near-syncope or syncope. He does not have any lower extremity edema. He does not have any symptoms of claudication. Intake Vital Signs03/19/19 Height 6 ft 03/19/19 Weight: 226 lb 03/19/19 Body Mass Index (BMI) 30.6 03/19/19 Blood Pressure 125/83 H 03/19/19 Blood Pressure Location Lt brachial Intake Visit Reasons: 6 M Price Accuracy Supervisor Required: No Is patient in pain?: No Allergies No Known Allergies Allergy (Verified 03/19/19 09:06) Medications aspirin 81 mg tablet,delayed release 81 mg PO DAILY 09/02/18 [History Confirmed 03/19/19] atorvastatin 80 mg tablet 80 mg PO DAILY 09/02/18 [History Confirmed 03/19/19] carvedilol 6.25 mg tablet 6.25 mg PO BID 09/02/18 [History Confirmed 03/19/19] cholecalciferol (vitamin D3) 1,000 unit capsule 1,000 unit PO DAILY 09/02/18 [History Confirmed 03/19/19] omega 5-jpi-sol-fish oil 1,000 mg (120 mg-180 mg) capsule 2 cap PO DAILY cap 09/02/18 [History Confirmed 03/19/19] ramipril 2.5 mg capsule 2.5 mg PO DAILY 09/02/18 [History Confirmed 03/19/19] [facility] Medical History (Updated 03/19/19 @ 09:23 by ALIS Villanueva) Hyperlipidemia (Chronic) Essential (primary) hypertension (Chronic) Nicotine dependence (Chronic) Atherosclerosis of coronary artery of [place] heart without angina pectoris (Chronic) Old myocardial infarction (Chronic) Obesity (BMI 30.0-34.9) (Chronic) Hiatal hernia with GERD (Resolved) History of back problems (Chronic) Surgical History (Updated 03/19/19 @ 09:22 by ALIS Villanueva) History of coronary artery stent placement (Resolved 01/2017) S/P bilateral inguinal hernia repair (Resolved) Status post laparoscopic Migue fundoplication (Resolved 10/15/18) Family History Father Colon cancer Diabetes Heart disease Hypertension CAD (coronary artery disease) Sister Breast cancer Mother CAD (coronary artery disease) Hypertension Heart disease Social History (Updated 03/19/19 @ 09:29 by ALIS Villanueva) Smoking Status: Former smoker quit date: 09/01/18 pack-years: 25 alcohol intake: current alcohol intake frequency: a few times a week Alcohol type: beer ROS Const Const: Negative for fatigue, weakness, fever(s) or headache(s) Eyes Eyes: Negative for blind spots, loss of peripheral vision or transient loss of vision ENT ENT: Negative for headache(s), dizziness, tinnitus or Nosebleed/epistaxis Cardio Chest Pain: No Palpitations: No Edema: None Muscle aches with walking: None Resp Respiratory: Negative for SOB with activity, SOB at rest, SOB orthopnea\\SOB lying down or Cough GI GI: Negative nausea, vomiting, heartburn or vomiting blood/hematemesis : Negative for hematuria Musc Musc: Negative for muscle aches/ myalgia Neuro Neuro: Negative for dizziness, lightheadedness, near syncope, syncope, orthostatic symptoms, headache(s) or weakness Reynaldo Hematologic/Lymphatic: Negative for easy bleeding Endo Endo: Negative for fatigue Cardiology Exam Const Appearance: cooperative, no acute distress and well developed Orientation: alert, awake and oriented x3 Head Head: normocephalic and atraumatic Mouth: moist mucous membranes Eyes General: appearance normal, both eyes and all related structures Conjunctivae: conjunctivae normal Pupils: PERRL EOM: EOM intact bilaterally Neck Neck: normal visual inspection, no lymphadenopathy and no JVD Carotids: Negative bruit Neck Mass: Negative Neck mass Chest Chest inspection: normal inspection of the chest and symmetric chest movement Auscultation: Bilateral: Clear to Auscultation Cardio Palpation: normal PMI Rate: regular rate Rhythm: regular rhythm Heart sounds: S1 normal and S2 normal; negative rub, gallop or murmur GI GI: normal to inspection, soft, no hepatosplenomegaly and bowel sounds present; negative tender Neuro General: alert, awake, oriented x3, CN's II-XI intact bilaterally and moves all extremities Extremities Pulses: Normal: Right Posterior Tibial Pulse, Left Posterior Tibial Pulse, Right Radial Pulse, Left Radial Pulse Lower Extremity Edema: None: Bilateral Psych Psychological: normal affect Assessment AND Plan 1. Atherosclerosis of pe[place] coronary artery of [place] heart without angina pectoris I25.10 Plan Stable, from a cardiac standpoint patient does not have any symptoms of angina. We recommend that they continue with current aggressive medical management and risk factor modification. 2. Essential hypertension I10 Plan Blood pressure is well controlled on current medications, we do not recommend any changes at this time. 3. Pure hypercholesterolemia E78.00; E78.0 Plan These are managed by his primary care doctor. He will continue with his current high intensity statin. 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) Coding Level of Care Code Off vis,est,level 3 Diagnoses Atherosclerosis of pe[place] coronary artery of [place] heart without angina pectoris I25.10 Coronary Disease-Associated Artery/Lesion type: [place] artery Essential hypertension I10 Pure hypercholesterolemia E78.00; E78.0 Hyperlipidemia type: pure hypercholesterolemia Coding Level of Care Code Off vis,est,level 3 Diagnoses Atherosclerosis of pe[place] coronary artery of [place] heart without angina pectoris I25.10 Coronary Disease-Associated Artery/Lesion type: [place] artery Essential hypertension I10 Pure hypercholesterolemia E78.00; E78.0 Hyperlipidemia type: pure hypercholesterolemia Supplemental Info Supplemental Information Echocardiogram in 2019: Normal LV size. Left ventricular systolic function is normal. The estimated ejection fraction is 65 %. Stage 1 diastolic dysfunction. Contrast injection was performed. Stress test in 2019: Normal exercise myocardial perfusion stress test at a high workload. Preserved ejection fraction. Excellent functional capacity. Diagnostics Echocardiogram 09/04/18 Stress Test Nuclear Medicine 09/04/18 Stress Test 09/04/18 Chest X-Ray 10/27/18 03/19/19 0929 <Electronically signed by Meron SNELL> Date Meron Wiseman Signature: Date (if applicable) CC: Jocelin Thakur Start: 11-03-2018 End: 11-03-2018 Surgery Visit Report Comments: See Note; NOTES: [facility] [address] [place] [address] OFFICE VISIT Date of Service: 11/03/18 MR#: [id number] Acct: [id number] Name: FREDERIC OVALLES Rep #: [id number] : 1960 Provider: Wolfgang Thompson MD Age/Sex: 58/M Location: [facility] Status: Signed Intake Intake Visit Reasons: FU LAP MIGUE 10/15 Chief Complaint: migue Price Accuracy Supervisor Required: No Is patient in pain?: No Allergies No Known Allergies Allergy (Verified 11/03/18 14:58) Medications aspirin 81 mg tablet,delayed release 81 mg PO DAILY 09/02/18 [History Confirmed 11/03/18] atorvastatin 80 mg tablet 80 mg PO DAILY 09/02/18 [History Confirmed 11/03/18] carvedilol 6.25 mg tablet 6.25 mg PO BID 09/02/18 [History Confirmed 11/03/18] cholecalciferol (vitamin D3) 1,000 unit capsule 1,000 unit PO DAILY 09/02/18 [History Confirmed 11/03/18] omega 8-dzn-mqd-fish oil 1,000 mg (120 mg-180 mg) capsule 2 cap PO DAILY cap 09/02/18 [History Confirmed 11/03/18] omeprazole 40 mg capsule,delayed release 40 mg PO DAILY 09/02/18 [History Confirmed 11/03/18] ramipril 2.5 mg capsule 2.5 mg PO DAILY 09/02/18 [History Confirmed 11/03/18] Subjective Details: 58-year-old gentleman. I performed a laparoscopic repair of hiatal hernia for him with a laparoscopic Migue fundoplication on October 15, 2018. A sizable hernia sac was resected. 11 lymph nodes were not remarkable. I saw him back in the office on November 06 he had had a violent cough. A chest x-ray suggested bibasilar atelectasis possible infiltrate. He was kindly seen by his primary care physician Dr. Jocelin Saunders and he was placed on course of antibiotics. The patient states today that he is feeling much improved. It is of note that the patient took it upon himself to stop his omeprazole immediately after surgery. Interestingly he is not having any reflux symptoms whatsoever. He is very pleased with the results. He states that he is testing himself by drinking high acidic foods like orange juice which always would "tearing him up previously" he has not currently having any symptoms. His preoperative evaluation was negative for Landry's but positive for erosive esophagitis. And as noted he did have a sizable hernia. Objective Details: Chest: Lungs are very clear today with good effort. Abdomen: Laparoscopic incisions are very clean dry healing well. Abdomen is soft and nontender Assessment AND Plan Plan 58-year-old gentleman who is having a very good response to his laparoscopic Migue fundoplication with complete eradication of reflux symptoms and no difficulty swallowing. His cough atelectasis has resolved. He has had an opportunity to ask and have questions answered. I am not anticipating any definitive further surgical intervention or testing. The patient is certainly welcome to return should he have recurrence of reflux symptoms. I very much appreciate the kind opportunity of assisting with his surgical care CC: Dr. Jocelin Thompson M.D., F.A.C.S. Coding Level of Care Code Global Post Op 11/03/18 1638 <Electronically signed by Wolfgang Thompson MD> Date Wolfgang Thompson MD Cosigner Signature: Date (if applicable) CC: Jocelin Thakur Start: 10-27-2018 End: 10-27-2018 Chest PA and Lateral Comments: See Note; NOTES: [facility] [address] [place] [address] Chest PA and Lateral MR#: [id number] Acct: [id number] Name: FREDERIC OVALLES Rep #: [id number] : 1960 M 58 From: Jeovanny Swan MD PCP: Jocelin Saunders DO Status: REG CLI Study: Chest PA and Lateral Date of Exam: 10/27/18 Exam# [id number] Ordering Dr: Wolfgang Thompson MD STUDY: X-RAY CHEST REASON FOR EXAM: Male, 58 years old. Cough following recent surgery. TECHNIQUE: PA and lateral views of the chest. COMPARISON: None. FINDINGS: Mild increased markings at the lung bases worse on the right side suggestive of a bibasilar atelectasis and/or early infiltrate. There is also evidence of increased markings in the right upper lobe. There is no demonstrated pleural abnormality. Normal size heart. Normal mediastinum and luis. Normal visualized pulmonary arteries. Normal visualized aortic arch and descending thoracic aorta. There are degenerative changes of the visualized thoracic spine. Normal visualized ribs, clavicles, and shoulders. There is no demonstrated abnormality of the visualized soft tissue structures of the upper abdomen. RAD/Chest PA and Lateral IMPRESSION: Increased markings at the lung bases as well as in the right upper lobe. Findings suggestive of either atelectasis and/or early infiltrate. Follow-up is recommended. Electronically Signed: Jeovanny Swan, at 15:58 EDT , Service support , CC: Jocelin Saunders DO; Wolfgang Thompson MD Wool Supplier: Signed Jocelin Saunders Start: 10-27-2018 End: 10-27-2018 Surgery Visit Report Comments: See Note; NOTES: [facility] [address] [place] [address] OFFICE VISIT Date of Service: 10/27/18 MR#: [id number] Acct: [id number] Name: FREDERIC OVALLES Rep #: [id number] : 1960 Provider: Wolfgang Thompson MD Age/Sex: 58/M Location: [facility] Status: Signed Intake Intake Visit Reasons: f/u lap migue 10/15/18 Chief Complaint: migue Price Accuracy Supervisor Required: No Is patient in pain?: Yes (LUQ abdomen) Allergies No Known Allergies Allergy (Verified 10/27/18 14:41) Medications aspirin 81 mg tablet,delayed release 81 mg PO DAILY 09/02/18 [History Confirmed 10/27/18] atorvastatin 80 mg tablet 80 mg PO DAILY 09/02/18 [History Confirmed 10/27/18] carvedilol 6.25 mg tablet 6.25 mg PO BID 09/02/18 [History Confirmed 10/27/18] cholecalciferol (vitamin D3) 1,000 unit capsule 1,000 unit PO DAILY 09/02/18 [History Confirmed 10/27/18] omega 8-zsm-kut-fish oil 1,000 mg (120 mg-180 mg) capsule 2 cap PO DAILY cap 09/02/18 [History Confirmed 10/27/18] omeprazole 40 mg capsule,delayed release 40 mg PO DAILY 09/02/18 [History Confirmed 10/27/18] ramipril 2.5 mg capsule 2.5 mg PO DAILY 09/02/18 [History Confirmed 10/27/18] Subjective Details: 58-year-old gentleman. He is status post a laparoscopic Migue fundoplication for intractable GERD. I performed this procedure for him on October 15, 2018. He seemingly did well with the procedure. Fragments of the hernia sac showed pieces of fibro-adipose tissue consistent with a hiatal hernia sac 11 lymph nodes unremarkable. The day after his hospitalization he claims he came down with a cough. He did not notify us nor his primary care physician. He was seen at the urgent care center and was prescribed and antitussive. He is continued to complain of severe cough which has escalated left upper quadrant pain. Objective Details: Chest: Increased anterior posterior diameter, somewhat hollow breath sounds left base as compared to the right. No wheezes. Abdomen: Soft, slightly distended, clean incisions, positive bowel sounds, no focal mass, not tender Assessment AND Plan Problems 1. Cough R05 Plan 58-year-old gentleman with a postoperative cough. This certainly has placed a strain on his scopic Migue fundoplication and on the ventral incisions and on his general feeling of well-being. Claims to feel very fatigued. We have contacted his primary care physician Dr. Jocelin Saunders and they will kindly see the patient tomorrow morning in the office. We will obtain a PA and lateral chest x-ray on the patient. Barring any potential intra-abdominal difficulties we will slowly advance his diet. I again plan to see him back in 1 week. Clearly the problem at hand is this significant cough but the etiology at this point is not clear. We will continue to closely follow and monitor his progress. Wolfgang Thompson M.D., F.A.C.S. Orders Orders: Coding Level of Care Code Global Post Op Diagnoses Cough R05 10/27/18 1505 <Electronically signed by Wolfgang Thompson MD> Date Wolfgang Thompson MD Cosigner Signature: Date (if applicable) CC: Jocelin Thakur Start: 09-30-2018 Esophagogastroduodenoscopy Jocelin Saunders Comment on above: Patient: FREDERIC OVALLES : 0 (58/M) Acct Num: [id number] Phys: Jay HICKS,Wolfgang Garcia Num: [id number] Loc: EN Specimen: [id number] Received: 09/30/18921 Spec Type: EGD BIOPSY TISSUES 1 TISSUES: A. Gastric mucous membrane B. Esophageal mucous membrane COMMENT A. The results of immunohistochemistry for Helicobacter pylori will be reportedseparately ([id number]). B. PASF stain with matched control supports the above diagnosis. GROSS DESCRIPTION A - Received in fixative is one container labeled with the patient's name and designated "antrum biopsy." The specimen consists of one irregular fragment of light garcia soft tissue that measures 0.3 x 0.3 x 0.1 cm. The specimen is totallysubmitted in one cassette. B - Received in fixative is one container labeled with the patient's name and designated "distal esophagus biopsy." The specimen consists of multiple irregular fragments of light garcia soft tissue that in aggregate measure 2 x 0.4 x0.1 cm. The specimen is totally submitted in one cassette. / SJ:lisandra 09/30/18 TC:3 CPT: 01269 x2, 99712 HEADER OPERATION: EGD (MOD) PRE-OP DIAGNOSIS: Hiatal hernia TISSUE SUBMITTED: A - Antrum biopsy for H. pylori and path, B - Distal esophagus biopsy MICROSCOPIC DESCRIPTION Slides are reviewed. MICROSCOPIC DIAGNOSIS A. Gastric antrum, biopsy: Reactive epithelial change with minimal chronic inflammation. See comment. B. Distal esophagus, biopsy: Consistent with reflux esophagitis. Focal ulceration with fibrinopurulent exudate. Negative for fungal organisms. See comment. AM:lisandra 10/01/18 Signed Duane Hassan DO 10/02/18 [facility] [id number] [facility] [place], [address] Start: 09-30-2018 End: 09-30-2018 Operative Report - Endoscopy Comments: See Note; NOTES : [facility] Medical Records Department [address] [place] [address] Operative Report - Endoscopy MR#: [id number] Acct: [id number] Name: FREDERIC OVALLES Rep #: [id number] : 1960 58 From: Wolfgang Thompson MD PCP: Jocelin Saunders DO Status: REG [facility] 09/30/2018 Jocelin Saunders [address] [facility], [facility] [address] [place] [address] Re : Upper GI endoscopy procedure for Frederic Ovalles Dear Dr. Saunders This procedure was performed on Sunday, September 30, 2018. My impressions and recommendations are as follows: Impressions : - LA Grade A reflux esophagitis. Biopsied. - Medium-sized hiatal hernia. - Erythematous mucosa in the antrum. Biopsied. - Normal examined duodenum. Recommendations : - Discharge patient to home. - Resume previous diet. - Continue present medications. - Telephone my office for pathology results in 1 week. My findings are described in the full procedure note, which is enclosed. If I can be of further assistance, please feel free to contact me at Doctor phone number(s): Work: . Sincerely, Wolfgang Thompson MD 09/30/2018 7:22:55 AM This report has been signed electronically. 09/30/18722 Date Wolfgang Thompson MD Cosigner Signature: Date (if indicated) CC: Jocelin Saunders DO; Wolfgang Thompson MD Date Dictated: 09/30/18701 Date Transcribed: Wool Supplier: [facility] Signed Jocelin Saunders Start: 09-19-2018 End: 09-19-2018 Surgery Visit Report Comments: See Note; NOTES: [facility] [address] [place] [address]. [address] [place] [address] OFFICE VISIT Date of Service: 09/19/18 MR#: [id number] Acct: [id number] Name: FREDERIC OVALLES Rep #: [id number] : 1960 Provider: Wolfgang Thompson MD Age/Sex: 58/M Location: [facility] Status: Signed Intake Vital Signs09/19/18 Body Mass Index (BMI) 31.6 09/19/18 Height 6 ft 09/19/18 Weight: 234 lb 11 oz 09/19/18 Body Mass Index (BMI) 31.8 09/19/18 Blood Pressure 136/83 H Intake Visit Reasons: TO DISCUSS HIATAL HERNIA Chief Complaint: discuss lap migue Price Accuracy Supervisor Required: No Is patient in pain?: No Allergies No Known Allergies Allergy (Verified 09/19/18 08:43) Medications aspirin 81 mg tablet,delayed release 81 mg PO DAILY 09/02/18 [History Confirmed 09/19/18] atorvastatin 80 mg tablet 80 mg PO DAILY 09/02/18 [History Confirmed 09/19/18] carvedilol 6.25 mg tablet 6.25 mg PO BID 09/02/18 [History Confirmed 09/19/18] cholecalciferol (vitamin D3) 1,000 unit capsule 1,000 unit PO DAILY 09/02/18 [History Confirmed 09/19/18] omega 1-ink-yyx-fish oil 1,000 mg (120 mg-180 mg) capsule cap PO cap 09/02/18 [History Confirmed 09/19/18] omeprazole 40 mg capsule,delayed release 40 mg PO DAILY 09/02/18 [History Confirmed 09/19/18] ramipril 2.5 mg capsule 2.5 mg PO DAILY 09/02/18 [History Confirmed 09/19/18] [facility] Medical History Hyperlipidemia (Chronic) Essential (primary) hypertension (Chronic) Nicotine dependence (Chronic) Atherosclerosis of coronary artery of [place] heart without angina pectoris (Chronic) Old myocardial infarction (Chronic) Obesity (BMI 30.0-34.9) (Chronic) Hiatal hernia with GERD (Acute) History of back problems (Acute) Surgical History History of coronary artery stent placement (Resolved 01/2017) S/P bilateral inguinal hernia repair (Resolved) Family History Father Colon cancer Diabetes Heart disease Hypertension CAD (coronary artery disease) Sister Breast cancer Mother CAD (coronary artery disease) Hypertension Heart disease Social History Smoking Status: Former smoker quit date: 09/01/18 pack-years: 25 alcohol intake: current alcohol intake frequency: a few times a week Alcohol type: beer HPI HPI HPI: FREDERIC OVALLES, is a 58 M who presents to the office today for ongoing surgical consultation regarding intractable gastroesophageal reflux disease. My previous notes reflect the following. In the interim I have obtained information regarding a carotid duplex exam which is normal. The patient has had a cardiac stress test which did not show acute ischemia. In 2017 he had upper endoscopy demonstrating a 5 cm hiatal hernia with reflux esophagitis on biopsy. He had esophageal manometry which demonstrated normal manometric pressures. He had pH probe demonstrating active reflux. Today is a 15-minute [id number] consultative appointment to review the above findings. MR#:[id number]:[id number] Name: FREDERIC OVALLES ARep #:[id number] : 1960 Provider:Wolfgang Thompson MD Age/Sex: 58/M Location:[facility] [place] [place] Status:Signed with Addenda ADDENDUM by Wolfgang Thompson MD on 09/09/18 at 0739 Addendum entered and electronically signed by Wolfgang Thompson MD 09/09/18 07:39: September 09, 2018 I have records from cardiology's office visit of September 03, 2018. The patient was seen by Dr. Misty Gomez 2017 the patient had 2 coronary stents placed. Recommendations were for the patient to pursue a stress test and an echocardiogram. His hypertension is well controlled. Dr Rachel January 16, 2017 upper and lower endoscopy was performed. Grade B esophagitis was identified. Large hiatal hernia greater than 5 cm. Colonoscopy showed several transverse colon polyps sigmoid polyps. These were removed with cold forceps. Bowel prep was fair. The biopsy showed mild chronic esophagitis. No Landry's. The transverse colon and sigmoid polyps were tubular adenomas. Report states that January 16, 2017 that he had a gastroesophageal reflex test with electrode placement. That he had manometry performed. PH probe had a DeMeester score of 39.9; day 1 69 and day 2 6.2 Manometry: LES at 44.7cm, normal contractility Will recommend repeat EGD for my evaluation. Billy Intake Allergies No Known Allergies Allergy (Unverified 09/03/18 08:52) Medications aspirin 81 mg tablet,delayed release 81 mg PO DAILY 09/02/18 [History Confirmed 09/03/18] atorvastatin 80 mg tablet 80 mg PO DAILY 09/02/18 [History Confirmed 09/03/18] carvedilol 6.25 mg tablet 6.25 mg PO BID 09/02/18 [History Confirmed 09/03/18] cholecalciferol (vitamin D3) 1,000 unit capsule 1,000 unit PO DAILY 09/02/18 [History Confirmed 09/03/18] omega 1-hfu-apa-fish oil 1,000 mg (120 mg-180 mg) capsule cap PO cap 09/02/18 [History Confirmed 09/03/18] omeprazole 40 mg capsule,delayed release 40 mg PO DAILY 09/02/18 [History Confirmed 09/03/18] ramipril 2.5 mg capsule 2.5 mg PO DAILY 09/02/18 [History Confirmed 09/03/18] Assessment AND Plan Problems 1. Hiatal hernia with GERD K21.9; K44.9 2. Tobacco dependence F17.200 3. Obesity (BMI 30.0-34.9) E66.9 4. History of myocardial infarction I25.2 Plan - Wolfgang Thompson MD 58-year-old gentleman who symptoms are very much consistent with very severe reflux disease associated with a hiatal hernia. We unfortunately have no records from his previous evaluation of 2016. We will contact [facility] tomorrow with a request for these results. The patient has cardiac disease I will want to obtain carotid duplex imaging if that is not already been achieved By patient report his primary care physician is already chasing his cardiac status with a stress test this week. The patient is requesting cardiology consultation locally and we will facilitate that referral. Pending information available from his previous evaluations and his cardiac evaluation we will then have him return to the office to discuss the potential need for any repeat evaluations versus surgical treatment options. I have vigorously encouraged the patient to immediately cease his tobacco use. He seems amenable to that. He has had an opportunity to ask and have questions answered. I very much appreciate the kind opportunity of assisting with his surgical care. CC: Dr. Jocelin Thompson M.D., F.A.C.S. 09/09/18 0739<Electronically signed by Wolfgang Thompson MD> Date Wolfgang Thompson MD cc: Jocelin Saunders DO * Signed Intake Vital Signs 09/02/18 Height 6 ft 09/02/18 Weight: 233 lb 09/02/18 Body Mass Index (BMI) 31.6 09/02/18 Blood Pressure 134/87 H 09/02/18 Blood Pressure Location Rt brachial 09/02/18 Blood Pressure Position Sitting 09/02/18 Respiratory Rate 20 H 09/02/18 Pulse Rate 82 Intake Visit Reasons: HIATAL HERNIA AND GERD Price Accuracy Supervisor Required: No Is patient in pain?: No Allergies No Known Allergies Allergy (Unverified 09/02/18 15:44) Medications aspirin 81 mg tablet,delayed release 81 mg PO DAILY 09/02/18 [History Confirmed 09/02/18] atorvastatin 80 mg tablet 80 mg PO DAILY 09/02/18 [History Confirmed 09/02/18] carvedilol 6.25 mg tablet 6.25 mg PO BID 09/02/18 [History Confirmed 09/02/18] cholecalciferol (vitamin D3) 1,000 unit capsule 1,000 unit PO DAILY 09/02/18 [History Confirmed 09/02/18] omega 0-mbh-hah-fish oil 1,000 mg (120 mg-180 mg) capsule cap PO cap 09/02/18 [History Confirmed 09/02/18] omeprazole 40 mg capsule,delayed release 40 mg PO DAILY 09/02/18 [History Confirmed 09/02/18] ramipril 2.5 mg capsule 2.5 mg PO DAILY 09/02/18 [History Confirmed 09/02/18] PFSH Medical History History of myocardial infarction (Acute) Obesity (BMI 30.0-34.9) (Acute) Tobacco dependence (Acute) Hiatal hernia with GERD (Acute) Heart attack (Acute) History of back problems (Acute) Surgical History H/O heart artery stent (Acute) S/P bilateral inguinal hernia repair (Acute) Family History Father Colon cancer Diabetes Heart disease Hypertension CAD (coronary artery disease) Sister Breast cancer Mother CAD (coronary artery disease) Hypertension Heart disease Social History Smoking Status: Light Smoker (<10/day) alcohol intake: current alcohol intake frequency: a few times a week Alcohol type: beer HPI HPI HPI: FREDERIC OVALLES, is a 58 M who presents to the office today for surgical consultation regarding intractable gastroesophageal reflux disease. The patient states that September 2016 he underwent extensive evaluation per Dr Rachel who has since left [facility]. The patient seems to describe upper endoscopy and esophageal manometry. He does not recall whether he had a barium swallow. 2 weeks after that he had an acute myocardial infarction and had 2 stents placed. He has been treated with Brilinta ever since. Recently he was seen by his [facility] resistor coater Dr Marco Elizabeth he had his Brilinta stopped. The patient is wanting to establish care locally here in [place]. He could not have his surgical treatment of his reflux until his anticoagulation ceased. He has been a longtime cigarette smoker. After his acute myocardial infarction he stopped smoking for 1 year but now he has resumed smoking. He has put on weight since his acute myocardial infarction now weighing 233 pounds with a BMI of 31.6 he is dependent upon Prilosec. He claims that occasionally food gets stuck and he has to retch and vomit. He has never had to have an emergency procedure to remove a food impaction. He claims that he has to sleep sitting fully upright. He complains of shortness of breath coughing sputtering at night. He is dependent upon his omeprazole. Only previous abdominal surgery has been remote bilateral inguinal hernia repairs via open technique. Patient is referred by his primary care physician Dr. Jocelin Saunders for surgical consultation regarding intractable gastroesophageal reflux disease and a written copy of my surgical consult recommendations will be returned to her ROS General General: Yes weight change and fatigue; no appetite, colon cancer, breast cancer or weakness HEENT HEENT: No difficulty swallowing, eye injury, eye surgery, swollen glands or hoarseness Endo Endocrine: No thyroid disease, diabetes mellitus, thyroid cancer, Hair loss, heat intolerance or cold intolerance Skin Skin: No rash or changing moles Breast Breast: No left breast lump, right breast lump, nipple discharge, breast pain, abnormal mammogram, abnormal US or breast enlargement Musc Musculoskeletal: Yes back problems; no arthritis, rheumatoid arthritis, gout or joint pain Cardio Cardiovascular: Yes heart attack and heart stent; no murmur, pacemaker, heart disease, atrial fibrillation, high blood pressure, palpitations, shortness of breat with exertion or chest pain Psych Psychiatric: No depression, anxiety or hearing voices Resp Respiratory: Yes shortness of breath, No sleep apnea, Yes cough, No COPD, No asthma, No emphysema, No wheezing Gastro Gastrointestinal: Yes abdominal pain, Yes nausea or vomiting, No diarrhea, No constipation, No blood in stool, Yes acid reflux, No hemorrhoids, No ulcers, No gallbladder problem, No black,tarry stools Reynaldo Hematologic: No blood thinners, No blood disorders, No bleeding, No anemia, No blood clots Neuro Neurologic: No system reviewed and no additional complaints, except as docu, No as per HPI, No abnormal walking, No abnormal hearing, No abnormal movements, No abnormal speech, No behavioral changes, No burning sensations, No confusion, No seizure-like activity, No unsteadiness, No dizziness, No localized weakness, No frequent falls, No headache(s), No lack of coordination, No loss of vision, No memory loss, No numbness, No other visual disturbances, No radiating pain, No restless legs, No sensory deficit, No fainting, No tingling, No tremor(s), No weakness, No other Exam Const General: cooperative Nutritional Appearance: obese Orientation: alert, awake HENMT Other: Mustache in place with tobacco staining noted Eyes General: appearance normal, both eyes and all related structures Chest Breast Palpation: No nipple discharge Other: Increased anterior posterior diameter Resp Effort AND Inspection: normal respiratory effort Auscultation: clear to auscultation bilaterally Cardio Rate: regular rate Rhythm: regular rhythm Heart Sounds: no murmurs Other: Bilateral carotids are 3+. I do not detect a bruit. Bilateral brachials 3+. Left radial 3+. Right radial 0. Bilateral femorals 3+. Bilateral popliteals 3+ GI Other: Soft, nontender, overweight, well-healed bilateral groin incisions, normal bowel sounds Musc Cervical Spine: normal cervical lordosis Skin General: no rashes or lesions noted Neuro Cranial Nerves: CN's II-XI intact bilaterally Extrem General: no calf tenderness bilaterally Psych Affect: normal affect Assessment AND Plan Problems 1. Hiatal hernia with GERD K21.9; K44.9 2. Tobacco dependence F17.200 3. Obesity (BMI 30.0-34.9) E66.9 4. History of myocardial infarction I25.2 Plan 58-year-old gentleman who symptoms are very much consistent with very severe reflux disease associated with a hiatal hernia. We unfortunately have no records from his previous evaluation of 2017. We will contact [facility] tomorrow with a request for these results. The patient has cardiac disease I will want to obtain carotid duplex imaging if that is not already been achieved By patient report his primary care physician is already chasing his cardiac status with a stress test this week. The patient is requesting cardiology consultation locally and we will facilitate that referral. Pending information available from his previous evaluations and his cardiac evaluation we will then have him return to the office to discuss the potential need for any repeat evaluations versus surgical treatment options. I have vigorously encouraged the patient to immediately cease his tobacco use. He seems amenable to that. He has had an opportunity to ask and have questions answered. I very much appreciate the kind opportunity of assisting with his surgical care. CC: Dr. Jocelin Thompson M.D., F.A.C.S. ROS General General: Yes weight change and fatigue; no appetite, colon cancer, breast cancer or weakness HEENT HEENT: No difficulty swallowing, eye injury, eye surgery, swollen glands or hoarseness Endo Endocrine: No thyroid disease, diabetes mellitus, thyroid cancer, Hair loss, heat intolerance or cold intolerance Skin Skin: No rash or changing moles Breast Breast: No left breast lump, right breast lump, nipple discharge, breast pain, abnormal mammogram, abnormal US or breast enlargement Musc Musculoskeletal: Yes back problems; no arthritis, rheumatoid arthritis, gout or joint pain Cardio Cardiovascular: Yes heart attack and heart stent; no murmur, pacemaker, heart disease, atrial fibrillation, high blood pressure, palpitations, shortness of breat with exertion or chest pain Psych Psychiatric: No depression, anxiety or hearing voices Resp Respiratory: Yes shortness of breath, No sleep apnea, Yes cough, No COPD, No asthma, No emphysema, No wheezing Gastro Gastrointestinal: Yes abdominal pain, Yes nausea or vomiting, No diarrhea, No constipation, No blood in stool, Yes acid reflux, No hemorrhoids, No ulcers, No gallbladder problem, No black,tarry stools Reynaldo Hematologic: No blood thinners, No blood disorders, No bleeding, No anemia, No blood clots Neuro Neurologic: No weakness Exam Chest Breast Palpation: No nipple discharge Cardio Heart Sounds: no murmurs Assessment AND Plan Problems 1. Hiatal hernia with GERD K21.9; K44.9 Plan I recommended the patient that I be permitted to perform a esophagogastroduodenoscopy with biopsy. I believe this could be accomplished with IV sedation. I will also have him scheduled for planned definitive surgery. I have asked him to continue ceasing his tobacco use. He is currently utilizing a nicotine patch and is not currently smoking. I have asked him to try to perform routine daily exercise and maximize his general health and lose a little bit of weight if possible. Based upon the previous information I anticipate performing a laparoscopic repair of his hiatal hernia with Migue fundoplication. I have discussed the technique, benefit, risks, alternatives. We will also schedule that procedure as well. I am anticipating a floppy Migue. He has had an opportunity to ask and have questions answered. We will schedule and proceed as noted. Primary care is Dr. Jocelin Thompson M.D., F.A.C.S. Coding Level of Care Code Off vis,est,level 2 Diagnoses Hiatal hernia with GERD K21.9; K44.9 09/19/18 1123 <Electronically signed by Wolfgang Thompson MD> Date Wolfgang Thompson MD Cosigner Signature: Date (if applicable) CC: Jocelin Thakur Start: 09-09-2018 End: 09-10-2018 Brain W/WO Contrast Comments: See Note; NOTES: [facility] [address] [place] [id number] Brain W/WO Contrast MR#: [id number] Acct: [id number] Name: FREDERIC OVALLES Alyx Rep #: [id number] : 1960 M 58 From: Bandar Owens MD PCP: Jocelin Saunders DO Status: REG CLI Study: Brain W/WO Contrast Date of Exam: 09/09/18 Exam# [id number] Ordering Dr: Jocelin Saunders DO STUDY: MRI BRAIN WITH AND WITHOUT CONTRAST REASON FOR EXAM: Male, 58 years old. Near syncope TECHNIQUE: Standardized multiplanar fat and water weighted pulse sequences were obtained. Gadavist 10 IV was administered for the contrast portion of the examination. COMPARISON: None. FINDINGS: Normal size of the ventricles and extra-axial spaces for the patient's age. Normal white matter tracts of the supratentorial brain. Normal bilateral basal ganglia. Normal thalami. There is no extra-axial fluid accumulation. Normal flow voids within the major intracranial circulation suggesting patency by spin echo criteria. Normal venous enhancement. There is no enhancing intra-axial or extra-axial abnormality. Normal sella turcica, pituitary gland, infundibular stalk, optic chiasm and hypothalamus. Normal tectal plate and pineal gland. Normal midbrain, torrey and medulla. Normal cerebellum. Normal basal cisterns. Normal bilateral temporal bones. Normal bilateral internal auditory canals. No demonstrated orbital abnormality, within the constraints of a routine brain study. Normal visualized paranasal sinuses. Normal calvarium and skull base. Normal visualized soft tissue structures. Normal visualized upper cervical spine. MRI/Brain W/WO Contrast IMPRESSION: Normal unenhanced and enhanced MRI of the brain. Electronically Signed: Bandar Owens MD at 3:20 EST Tel , Service support , CC: Jocelin Saunders DO Wool Supplier: Signed Jocelin Saunders Work Phone: Start: 09-09-2018 End: 09-09-2018 Surgery Visit Report Comments: See Note; NOTES: [facility] [address] [place] [address] OFFICE VISIT Date of Service: 09/02/18 MR#: [id number] Acct: [id number] Name: FREDERIC OVALLES Rep #: [id number] : 1960 Provider: Wolfgang Thompson MD Age/Sex: 58/M Location: [facility] Status: Signed with Addenda ADDENDUM by Wolfgang Thompson MD on 09/09/18 at 0739 Addendum entered and electronically signed by Wolfgang Thompson MD 09/09/18 07:39: September 09, 2018 I have records from cardiology's office visit of September 03, 2018. The patient was seen by Dr. Misty Gomez 2017 the patient had 2 coronary stents placed. Recommendations were for the patient to pursue a stress test and an echocardiogram. His hypertension is well controlled. Dr Rachel January 16, 2017 upper and lower endoscopy was performed. Grade B esophagitis was identified. Large hiatal hernia greater than 5 cm. Colonoscopy showed several transverse colon polyps sigmoid polyps. These were removed with cold forceps. Bowel prep was fair. The biopsy showed mild chronic esophagitis. No Landry's. The transverse colon and sigmoid polyps were tubular adenomas. Report states that January 16, 2017 that he had a gastroesophageal reflex test with electrode placement. That he had manometry performed. PH probe had a DeMeester score of 39.9; day 1 69 and day 2 6.2 Manometry: LES at 44.7cm, normal contractility Will recommend repeat EGD for my evaluation. Billy Intake Allergies No Known Allergies Allergy (Unverified 09/03/18 08:52) Medications aspirin 81 mg tablet,delayed release 81 mg PO DAILY 09/02/18 [History Confirmed 09/03/18] atorvastatin 80 mg tablet 80 mg PO DAILY 09/02/18 [History Confirmed 09/03/18] carvedilol 6.25 mg tablet 6.25 mg PO BID 09/02/18 [History Confirmed 09/03/18] cholecalciferol (vitamin D3) 1,000 unit capsule 1,000 unit PO DAILY 09/02/18 [History Confirmed 09/03/18] omega 8-ssd-epk-fish oil 1,000 mg (120 mg-180 mg) capsule cap PO cap 09/02/18 [History Confirmed 09/03/18] omeprazole 40 mg capsule,delayed release 40 mg PO DAILY 09/02/18 [History Confirmed 09/03/18] ramipril 2.5 mg capsule 2.5 mg PO DAILY 09/02/18 [History Confirmed 09/03/18] Assessment AND Plan Problems 1. Hiatal hernia with GERD K21.9; K44.9 2. Tobacco dependence F17.200 3. Obesity (BMI 30.0-34.9) E66.9 4. History of myocardial infarction I25.2 Plan - Wolfgang Thompson MD 58-year-old gentleman who symptoms are very much consistent with very severe reflux disease associated with a hiatal hernia. We unfortunately have no records from his previous evaluation of 2016. We will contact [facility] tomorrow with a request for these results. The patient has cardiac disease I will want to obtain carotid duplex imaging if that is not already been achieved By patient report his primary care physician is already chasing his cardiac status with a stress test this week. The patient is requesting cardiology consultation locally and we will facilitate that referral. Pending information available from his previous evaluations and his cardiac evaluation we will then have him return to the office to discuss the potential need for any repeat evaluations versus surgical treatment options. I have vigorously encouraged the patient to immediately cease his tobacco use. He seems amenable to that. He has had an opportunity to ask and have questions answered. I very much appreciate the kind opportunity of assisting with his surgical care. CC: Dr. Jocelin Thompson M.D., F.A.C.S. 09/09/18 0739 <Electronically signed by Wolfgang Thompson MD> Date Wolfgang Thompson MD cc: Jocelin Saunders DO * Signed Intake Vital Signs09/02/18 Height 6 ft 09/02/18 Weight: 233 lb 09/02/18 Body Mass Index (BMI) 31.6 Intake Visit Reasons: HIATAL HERNIA AND GERD Price Accuracy Supervisor Required: No Is patient in pain?: No Allergies No Known Allergies Allergy (Unverified 09/02/18 15:44) Medications aspirin 81 mg tablet,delayed release 81 mg PO DAILY 09/02/18 [History Confirmed 09/02/18] atorvastatin 80 mg tablet 80 mg PO DAILY 09/02/18 [History Confirmed 09/02/18] carvedilol 6.25 mg tablet 6.25 mg PO BID 09/02/18 [History Confirmed 09/02/18] cholecalciferol (vitamin D3) 1,000 unit capsule 1,000 unit PO DAILY 09/02/18 [History Confirmed 09/02/18] omega 5-fki-zyz-fish oil 1,000 mg (120 mg-180 mg) capsule cap PO cap 09/02/18 [History Confirmed 09/02/18] omeprazole 40 mg capsule,delayed release 40 mg PO DAILY 09/02/18 [History Confirmed 09/02/18] ramipril 2.5 mg capsule 2.5 mg PO DAILY 09/02/18 [History Confirmed 09/02/18] PFSH Medical History History of myocardial infarction (Acute) Obesity (BMI 30.0-34.9) (Acute) Tobacco dependence (Acute) Hiatal hernia with GERD (Acute) Heart attack (Acute) History of back problems (Acute) Surgical History H/O heart artery stent (Acute) S/P bilateral inguinal hernia repair (Acute) Family History Father Colon cancer Diabetes Heart disease Hypertension CAD (coronary artery disease) Sister Breast cancer Mother CAD (coronary artery disease) Hypertension Heart disease Social History Smoking Status: Light Smoker (<10/day) alcohol intake: current alcohol intake frequency: a few times a week Alcohol type: beer HPI HPI HPI: FREDERIC OVALLES, is a 58 M who presents to the office today for surgical consultation regarding intractable gastroesophageal reflux disease. The patient states that September 2016 he underwent extensive evaluation per Dr Rachel who has since left [facility]. The patient seems to describe upper endoscopy and esophageal manometry. He does not recall whether he had a barium swallow. 2 weeks after that he had an acute myocardial infarction and had 2 stents placed. He has been treated with Brilinta ever since. Recently he was seen by his [facility] resistor coater Dr Marco Elizabeth he had his Brilinta stopped. The patient is wanting to establish care locally here in [place]. He could not have his surgical treatment of his reflux until his anticoagulation ceased. He has been a longtime cigarette smoker. After his acute myocardial infarction he stopped smoking for 1 year but now he has resumed smoking. He has put on weight since his acute myocardial infarction now weighing 233 pounds with a BMI of 31.6 he is dependent upon Prilosec. He claims that occasionally food gets stuck and he has to retch and vomit. He has never had to have an emergency procedure to remove a food impaction. He claims that he has to sleep sitting fully upright. He complains of shortness of breath coughing sputtering at night. He is dependent upon his omeprazole. Only previous abdominal surgery has been remote bilateral inguinal hernia repairs via open technique. Patient is referred by his primary care physician Dr. Jocelin Saunders for surgical consultation regarding intractable gastroesophageal reflux disease and a written copy of my surgical consult recommendations will be returned to her ROS General General: Yes weight change and fatigue; no appetite, colon cancer, breast cancer or weakness HEENT HEENT: No difficulty swallowing, eye injury, eye surgery, swollen glands or hoarseness Endo Endocrine: No thyroid disease, diabetes mellitus, thyroid cancer, Hair loss, heat intolerance or cold intolerance Skin Skin: No rash or changing moles Breast Breast: No left breast lump, right breast lump, nipple discharge, breast pain, abnormal mammogram, abnormal US or breast enlargement Musc Musculoskeletal: Yes back problems; no arthritis, rheumatoid arthritis, gout or joint pain Cardio Cardiovascular: Yes heart attack and heart stent; no murmur, pacemaker, heart disease, atrial fibrillation, high blood pressure, palpitations, shortness of breat with exertion or chest pain Psych Psychiatric: No depression, anxiety or hearing voices Resp Respiratory: Yes shortness of breath, No sleep apnea, Yes cough, No COPD, No asthma, No emphysema, No wheezing Gastro Gastrointestinal: Yes abdominal pain, Yes nausea or vomiting, No diarrhea, No constipation, No blood in stool, Yes acid reflux, No hemorrhoids, No ulcers, No gallbladder problem, No black,tarry stools Reynaldo Hematologic: No blood thinners, No blood disorders, No bleeding, No anemia, No blood clots Neuro Neurologic: No system reviewed and no additional complaints, except as docu, No as per HPI, No abnormal walking, No abnormal hearing, No abnormal movements, No abnormal speech, No behavioral changes, No burning sensations, No confusion, No seizure-like activity, No unsteadiness, No dizziness, No localized weakness, No frequent falls, No headache(s), No lack of coordination, No loss of vision, No memory loss, No numbness, No other visual disturbances, No radiating pain, No restless legs, No sensory deficit, No fainting, No tingling, No tremor(s), No weakness, No other Exam Const General: cooperative Nutritional Appearance: obese Orientation: alert, awake HENMT Other: Mustache in place with tobacco staining noted Eyes General: appearance normal, both eyes and all related structures Chest Breast Palpation: No nipple discharge Other: Increased anterior posterior diameter Resp Effort AND Inspection: normal respiratory effort Auscultation: clear to auscultation bilaterally Cardio Rate: regular rate Rhythm: regular rhythm Heart Sounds: no murmurs Other: Bilateral carotids are 3+. I do not detect a bruit. Bilateral brachials 3+. Left radial 3+. Right radial 0. Bilateral femorals 3+. Bilateral popliteals 3+ GI Other: Soft, nontender, overweight, well-healed bilateral groin incisions, normal bowel sounds Musc Cervical Spine: normal cervical lordosis Skin General: no rashes or lesions noted Neuro Cranial Nerves: CN's II-XI intact bilaterally Extrem General: no calf tenderness bilaterally Psych Affect: normal affect Assessment AND Plan Problems 1. Hiatal hernia with GERD K21.9; K44.9 2. Tobacco dependence F17.200 3. Obesity (BMI 30.0-34.9) E66.9 4. History of myocardial infarction I25.2 Plan 58-year-old gentleman who symptoms are very much consistent with very severe reflux disease associated with a hiatal hernia. We unfortunately have no records from his previous evaluation of 2017. We will contact [facility] tomorrow with a request for these results. The patient has cardiac disease I will want to obtain carotid duplex imaging if that is not already been achieved By patient report his primary care physician is already chasing his cardiac status with a stress test this week. The patient is requesting cardiology consultation locally and we will facilitate that referral. Pending information available from his previous evaluations and his cardiac evaluation we will then have him return to the office to discuss the potential need for any repeat evaluations versus surgical treatment options. I have vigorously encouraged the patient to immediately cease his tobacco use. He seems amenable to that. He has had an opportunity to ask and have questions answered. I very much appreciate the kind opportunity of assisting with his surgical care. CC: Dr. Jocelin Thompson M.D., F.A.C.S. Coding Level of Care Code Comprehensive,moderate Diagnoses Hiatal hernia with GERD K21.9; K44.9 Tobacco dependence F17.200 Obesity (BMI 30.0-34.9) E66.9 History of myocardial infarction I25.2 09/02/18 8649 <Electronically signed by Wolfgang Thompson MD> Date Wolfgang Thompson MD Cosigner Signature: Date (if applicable) CC: Jocelin Thakur Start: 09-05-2018 End: 09-05-2018 Electroencephalogram Comments: See Note; NOTES: [facility] Pulmonary Services/Neurology [address] [facility] [place] [address] MR#: [id number] Acct: [id number] Name: FREDERIC OVALLES Rep #: [id number] : 1960 58 From: Sandro Barclay MD Referring Dr: Jocelin Saunders DO Status: REG CLI Ordering Dr: Date: Location: [facility] Sex: M C - Electroencephalogram This is an 18 channel electroencephalogram performed utilizing the International 10-20 electrode placement protocol along with hyperventilation, photic stimulation and EKG reference leads on this 58-year-old male with a history of near syncope. Background activity is in the beta range symmetrically however this attenuates with eye-opening. Hyperventilation is performed for 2 minutes with good effort with no lateralizing or epileptiform changes. The patient did drowse during the recording without lateralizing or epileptiform changes. EKG remained normal sinus rhythm throughout the recording and photic stimulation generated a normal symmetric driving response in the posterior leads. Impression: Normal awake electroencephalogram. 09/05/18 1209 <Electronically signed by Sandro Barclay MD> Date Sandro Barclay MD CC: Jocelin Saunders DO; Sandro Barclay MD Date Dictated: 09/05/18 1153 Date Transcribed: 09/05/181152 Wool Supplier: NF Signed Jocelin Saunders Start: 09-05-2018 End: 09-05-2018 Carotid Duplex Ultrasound Comments: See Note; NOTES: [facility] Cardiovascular Services [address] [place] [address] Carotid Duplex Ultrasound 09/04/18 0947 MR#: [id number] Acct: [id number] Name: FREDERIC OVALLES Rep #: [id number] : 1960 58 From: Dex Claudio MD Attending Dr: Jocelin Saunders DO Status: REG CLI Ordering Dr: Jocelin Saunders DO Date: 09/04/18 Location: [facility] Sex: M C Admitted: Reason For Study: SYNCOPE Rt. Velocities/BP Lt. Velocities/BP Prox CCA 70.4/15.8 cm/sec. Prox CCA 83.8/20.5 cm/sec. Mid CCA 63.3/13.5 cm/sec. Mid CCA 63.9/22.3 cm/sec. Dist CCA 49.2/16.4 cm/sec. Dist CCA 50.4/15.2 cm/sec. Prox ICA 37.2/15.1 cm/sec. Prox ICA 51.9/23.3 cm/sec. Mid ICA 42.8/16.9 cm/sec. Mid ICA 53.8/21.4 cm/sec. Dist ICA 51.1/20.8 cm/sec. Dist ICA 54.8/22.9 cm/sec. Rt. ICA/CCA = .81. Lt. ICA/CCA = .86. Prox ECA 69.2/15.2 cm/sec. Prox ECA 66.3/12.9 cm/sec. Rt. Vert. 34.2/12.2 cm/sec. Lt. Vert. 45.7/17.6 cm/sec. Right Extracranial There is intimal thickening but no significant atherosclerotic plaque noted in the right common carotid artery. There is heterogeneous, irregular atherosclerotic plaque noted in the right internal carotid artery. There is no significant atherosclerotic plaque noted in the right external carotid artery. Antegrade flow is noted in the right vertebral artery. Left Extracranial There is intimal thickening but no significant atherosclerotic plaque noted in the left common carotid artery. There is intimal thickening but no significant atherosclerotic plaque noted in the left internal carotid artery. There is no significant atherosclerotic plaque noted in the left external carotid artery. Antegrade flow is noted in the left vertebral artery. Procedure Carotid Duplex 02267. Exam performed in department. Interpretation Summary Mild (<50%) stenosis right extracranial internal carotid. No significant atherosclerotic plaque or stenosis noted in the left internal carotid artery. Flow within the vertebral arteries is antegrade bilaterally. Ordering Physician: Jocelin Saunders Referring Physician: Jocelin Saunders Performed By: Jade Mclean RVT 09/05/18 0840 Date Dex Claudio MD CC: Jocelin Saunders DO Date Dictated: 09/04/1847 Date Transcribed: 09/05/18839 Wool Supplier: Signed Jocelin Saunders Work Phone: Start: 09-04-2018 End: 09-04-2018 Echo, Complete w/ Contrast Comments: See Note; NOTES: [facility] Cardiovascular Services [address] [place] [address] Echo Complete W/ Contrast 09/04/18 0847 MR#: [id number] Acct: [id number] Name: FREDERIC OVALLES Rep #: [id number] : 1960 58 From: Hector Hsu MD Attending Dr: Jocelin Saunders DO Status: REG CLI Ordering Dr: Jocelin Saunders DO Date: 09/04/18 Location: [facility] Sex: M C Admitted: Reason For Study: NEAR SYNCOPE Procedure This was a 2D Doppler, Color Flow transthoracic echocardiogram. Exam performed in department. Left Ventricle Normal LV size. Left ventricular systolic function is normal. The estimated ejection fraction is 65 %. Stage 1 diastolic dysfunction. No regional wall motion abnormalities noted. Right Ventricle Normal RV size. Normal systolic function. Atria Normal left atrium. Normal right atrium. Mitral Valve Normal mitral valve. Tricuspid Valve Normal tricuspid valve. Mild tricuspid valve insufficiency. Aortic Valve Normal aortic valve. Pulmonic Valve Normal pulmonic valve. Great Vessels Normal aortic root. The pulmonary artery is normal size. Normal inferior vena cava. Pericardium/Pleural No pericardial effusion. Medication Diluted definity 5ml given slow IV push to enhance endocardial definition. MMode/2D Measurements AND Calculations LVIDd: 4.7 cm IVSd: 0.95 cm Ao root diam: 3.6 cm LVIDs: 3.2 cm LVPWd: 0.99 cm RVDd: 4.0 cm FS: 32.2 % LAV(MOD-bp): 32.1 ml LVAd ap4: 28.5 cm2 SV(MOD-sp4): 64.0 ml LAV(MOD-bp) Indexed: 14.1 ml/m2 EDV(MOD-sp4): 97.8 ml LAV(MOD-sp2): 27.2 ml EDV(sp4-el): 97.7 ml LAV(MOD-sp4): 32.2 ml LVAs ap4: 16.0 cm2 ESV(MOD-sp4): 33.8 ml ESV(sp4-el): 36.1 ml EF(MOD-sp4): 65.5 % EF(sp4-el): 63.0 % SV(sp4-el): 61.6 ml LA A4 area: 14.2 cm2 LA dimension(2D): 3.4 cm RA A4 area: 16.0 cm2 Time Measurements MV dec time: 0.24 sec Doppler Measurements AND Calculations MV E max dianna: 52.5 cm/sec Lat Peak E' Dianna: 6.0 cm/sec Med Peak E' Dianna: 5.1 cm/sec MV A max dianna: 67.4 cm/sec E/E' lat: 8.7 E/E' med: 10.3 MV E/A: 0.78 Ao V2 max: 114.7 cm/sec LV V1 max: 106.4 cm/sec PA V2 max: 103.4 cm/sec Ao max P.3 mmHg LV V1 max P.5 mmHg TR max dianna: 207.9 cm/sec TR max P.3 mmHg Interpretation Summary Normal LV size. Left ventricular systolic function is normal. The estimated ejection fraction is 65 %. Stage 1 diastolic dysfunction. Contrast injection was performed. Ordering Physician: Jocelin Saunders Referring Physician: Jocelin Saunders Performed By: Natalia Swanson RDCS 09/04/18947 Date Hector Hsu MD CC: Jocelin Saunders DO Date Dictated: 09/04/1847 Date Transcribed: 09/04/18947 Wool Supplier: Signed Jocelin Saunders Work Phone: Start: 09-04-2018 End: 09-04-2018 Stress Report Comments: See Note; NOTES: [facility] Cardiovascular Services [address] [place] [address] MR#: [id number] Acct: [id number] Name: FREDERIC OVALLES Rep #: [id number] : 1960 58 From: Hector Hsu MD Primary Care: Jocelin Saunders DO Status: REG CLI Ordering Dr: Sex: M C Stress Test Report Exercise myocardial perfusion stress test. 58-year-old man with a history of shortness of breath and preop evaluation. Stress protocol: Resting EKG demonstrates sinus rhythm with a rate of 71 bpm normal intervals are noted resting blood pressure 110/74 mmHg. The patient exercised according to regular Gallito protocol for total duration of 9 minutes the maximum heart rate attained was 151 bpm which was 93% of maximum predicted heart rate the maximum workload was 10.1 metabolic equivalents. Patient completed stage III of the Gallito protocol. At rest there were no ST or T wave changes noted suggest ischemia at peak exercise upsloping ST changes only were noted with no meet the criteria for ischemia. No clinical angina was noted. The test was terminated due to shortness of breath. The resting blood pressure 110/74 with a peak blood pressure 170/74. No clinical angina was noted rate pressure product was 25,100. Myocardial perfusion protocol. 15.1 mCi of technetium 99m sestamibi was injected at rest. The patient exercised according to regular Gallito protocol for total duration of 9 minutes at peak exercise 45.0 mCi of technetium 99m sestamibi was injected stress images were obtained stress and rest images were reconstructed and compared in the short axis vertical long horizontal long axis. Gated images were also obtained next Perfusion SPECT analysis: Review of the stress images demonstrate normal uptake of tracer noted in all areas of the myocardium. The resting images similarly demonstrate normal uptake of tracer noted in all areas of the myocardium. No areas of reversibility are noted suggest ischemia no previous infarct is discernible. Gated SPECT analysis: The gated ejection fraction is noted to be 63%. Conclusion: Normal exercise myocardial perfusion stress test at a high workload. Preserved ejection fraction. Excellent functional capacity. 09/04/18 0910 <Electronically signed by Hector Hsu MD> Date Hector Hsu MD CC: Jocelin Saunders DO Date Dictated: 09/04/18906 Date Transcribed: 09/04/18906 Wool Supplier: [place] Signed Jocelin Saunders Start: 09-03-2018 End: 09-03-2018 Cardiology Visit Report Comments: See Note; NOTES: [facility] [address] [facility] [place] [address] OFFICE VISIT Date of Service: 09/03/18 MR#: [id number] Acct: [id number] Name: FREDERIC OVALLES Rep #: [id number] : 1960 Provider: Hector Hsu MD Age/Sex: 58/M Location: [facility] Status: Signed HPI HPI Chief Complaint: Preoperative evaluation Details: FREDERIC OVALLES, is a 58 M who presents to the office today for a preoperative evaluation for possible surgery for gastroesophageal reflux disease. He does have a history of coronary artery disease status post myocardial infarction in 2017 during which he received 2 stents presumably drug-eluting stents. He is not had any chest pain or shortness of breath or paroxysmal nocturnal dyspnea he has not had any dizziness or diaphoresis near syncope or syncope. He had previously discontinued tobacco use but unfortunately has started it again. As part of his workup he was noted to have the above history and he was referred here for evaluation as well as optimization of care. He has been compliant with the rest of his medications and has not had any major issues. His physical exam demonstrates clear lung osuna regular rate and rhythm and no pedal edema. Intake Vital Signs09/03/18 Height 6 ft 09/03/18 Weight: 233 lb Intake Visit Reasons: Ref'd by Dr Thompson, transfer from [facility] Allergies No Known Allergies Allergy (Unverified 09/03/18 08:52) Medications aspirin 81 mg tablet,delayed release 81 mg PO DAILY 09/02/18 [History Confirmed 09/03/18] atorvastatin 80 mg tablet 80 mg PO DAILY 09/02/18 [History Confirmed 09/03/18] carvedilol 6.25 mg tablet 6.25 mg PO BID 09/02/18 [History Confirmed 09/03/18] cholecalciferol (vitamin D3) 1,000 unit capsule 1,000 unit PO DAILY 09/02/18 [History Confirmed 09/03/18] omega 9-nsp-klw-fish oil 1,000 mg (120 mg-180 mg) capsule cap PO cap 09/02/18 [History Confirmed 09/03/18] omeprazole 40 mg capsule,delayed release 40 mg PO DAILY 09/02/18 [History Confirmed 09/03/18] ramipril 2.5 mg capsule 2.5 mg PO DAILY 09/02/18 [History Confirmed 09/03/18] [facility] Medical History Hyperlipidemia (Chronic) Essential (primary) hypertension (Chronic) Nicotine dependence (Chronic) Atherosclerosis of coronary artery of [place] heart without angina pectoris (Chronic) Old myocardial infarction (Chronic) Obesity (BMI 30.0-34.9) (Chronic) Hiatal hernia with GERD (Acute) History of back problems (Acute) Surgical History History of coronary artery stent placement (Resolved 01/2017) S/P bilateral inguinal hernia repair (Resolved) Family History Father Colon cancer Diabetes Heart disease Hypertension CAD (coronary artery disease) Sister Breast cancer Mother CAD (coronary artery disease) Hypertension Heart disease Social History Smoking Status: Former smoker quit date: 09/01/18 pack-years: 25 alcohol intake: current alcohol intake frequency: a few times a week Alcohol type: beer ROS Const Const: Negative for fatigue, weakness, headache(s), frequent falls, difficulty sleeping or excessive sweating Eyes Eyes: Negative for loss of peripheral vision, transient loss of vision, blurry vision, double vision or tunnel vision ENT ENT: Negative for headache(s), dizziness, Nosebleed/epistaxis or balance problems Cardio Chest Pain: No Palpitations: No Edema: None Muscle aches with walking: None Resp Respiratory: Positive for SOB with activity and Cough (Dry cough); negative for SOB at rest, SOB orthopnea\\SOB lying down or paroxysmal nocturnal dyspnea GI GI: Positive for heartburn and other (Sleeps sitting up because of reflux); negative nausea, vomiting or black,tarry stools : Negative for hematuria Musc Musc: Negative for muscle aches/ myalgia, muscle weakness, joint pain or balance problems Skin Skin: Negative non-healing lesions, rash or unusual bruising Neuro Neuro: Negative for dizziness, lightheadedness, near syncope, syncope, orthostatic symptoms, frequent falls, headache(s), weakness, blurry vision, double vision or lack of coordination Reynaldo Hematologic/Lymphatic: Negative for easy bleeding or easy bruising Endo Endo: Negative for fatigue, excessive sweating or increased thirst/drinking Psych Psych: Negative for anxiety or depression Allergy Allergy/Immunology: Negative for hives, Negative for rash Cardiology Exam Const Appearance: cooperative, healthy appearing, no acute distress, well developed and well groomed Nutritional Appearance: average body habitus and well nourished Orientation: alert, awake and oriented x3 Head Head: normal to inspection, normocephalic and atraumatic Ears: hearing grossly normal bilaterally and external ears normal Nose: external nose normal, nares normal, nasal mucous membranes and turbinates normal, septum normal, no nasal discharge Face and Sinus: face symmetric Mouth: oral mucosae normal, tongue normal, oropharynx normal and moist mucous membranes Teeth and gingiva: dentition normal Throat: posterior oropharynx normal, tonsils normal and uvula midline Eyes General: appearance normal, both eyes and all related structures Eyelids: eyelids normal Conjunctivae: conjunctivae normal Pupils: PERRL, normal by confrontation and accommodation normal EOM: EOM intact bilaterally Neck Neck: normal visual inspection, trachea midline and no JVD JVD: +5 Carotids: normal carotid upstroke and bounding pulses Chest Chest inspection: normal inspection of the chest, symmetric chest movement and normal respiratory effort Auscultation: Bilateral: Clear to Auscultation Cardio Palpation: normal PMI Rate: regular rate Rhythm: regular rhythm Heart sounds: S1 normal, S2 normal and normal, physiologic split S2; negative rub, gallop or murmur GI GI: normal to inspection, soft, no hepatosplenomegaly and bowel sounds present Neuro General: alert, awake, oriented x3, gait normal, moves all extremities and no focal sensory deficit Skin Skin: no rashes or lesions noted Extremities Pulses: Normal: Right Femoral Pulse, Left Femoral Pulse, Right Dorsalis Pedis Pulse, Left Dorsalis Pedis Pulse, Right Posterior Tibial Pulse, Left Posterior Tibial Pulse, Right Radial Pulse, Left Radial Pulse Lower Extremity Edema: None: Bilateral Musculoskel Musculoskeletal: No joint tenderness Psych Psychological: normal affect Assessment AND Plan 1. Preop cardiovascular exam Z01.810 Plan He is here for preoperative cardiac evaluation. He is scheduled to have a stress test and an echocardiogram performed this week and depending on those findings further recommendations will be made with regard to preop optimization. Unless there is any significant abnormality noted I would recommend that we proceed with his surgery. 2. Atherosclerosis of coronary artery of [place] heart without angina pectoris I25.10 Plan He does have a history of atherosclerotic cardiovascular disease without any evidence of angina. The stress test would be more informative on further risk stratification. 3. Essential (primary) hypertension I10 Plan His blood pressure appears to be under excellent control on the beta-regina as well as the KULDEEP inhibitor. This will also be continued. He has had a dry cough some of which could be related to the ramipril. However his hiatal hernia could also be causing silent reflux. I do not want to change his medications just yet and if he continues to have this after his upcoming surgery then we can presume that it is secondary to his KULDEEP inhibitor. 4. Hyperlipidemia E78.5 Plan He does have a history of hyperlipidemia on high intensity statin. He tells me that you have been following this and will continue. 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 Up 6 Months (jhr) Coding Level of Care Code Off vis,new,level 4 Diagnoses Preop cardiovascular exam Z01.810 Atherosclerosis of coronary artery of [place] heart without angina pectoris I25.10 Essential (primary) hypertension I10 Hyperlipidemia E78.5 Coding Level of Care Code Off vis,new,level 4 Diagnoses Preop cardiovascular exam Z01.810 Atherosclerosis of coronary artery of [place] heart without angina pectoris I25.10 Essential (primary) hypertension I10 Hyperlipidemia E78.5 09/03/18 1128 <Electronically signed by Hector Hsu MD> Date Hector Hsu MD Cosigner Signature: Date (if applicable) CC: Jocelin Thakur Start: 09-02-2018 End: 09-02-2018 Surgery Visit Report Comments: See Note; NOTES: [facility] [address] [place] [address]. [address] [place] [address] OFFICE VISIT Date of Service: 09/02/18 MR#: [id number] Acct: [id number] Name: MARISAPATRICIAFREDERIC Rep #: [id number] : 1960 Provider: Wolfgang Thompson MD Age/Sex: 58/M Location: [facility] Status: Signed Intake Vital Signs09/02/18 Height 6 ft 09/02/18 Weight: 233 lb 09/02/18 Body Mass Index (BMI) 31.6 Intake Visit Reasons: HIATAL HERNIA AND GERD Price Accuracy Supervisor Required: No Is patient in pain?: No Allergies No Known Allergies Allergy (Unverified 09/02/18 15:44) Medications aspirin 81 mg tablet,delayed release 81 mg PO DAILY 09/02/18 [History Confirmed 09/02/18] atorvastatin 80 mg tablet 80 mg PO DAILY 09/02/18 [History Confirmed 09/02/18] carvedilol 6.25 mg tablet 6.25 mg PO BID 09/02/18 [History Confirmed 09/02/18] cholecalciferol (vitamin D3) 1,000 unit capsule 1,000 unit PO DAILY 09/02/18 [History Confirmed 09/02/18] omega 2-rra-ptv-fish oil 1,000 mg (120 mg-180 mg) capsule cap PO cap 09/02/18 [History Confirmed 09/02/18] omeprazole 40 mg capsule,delayed release 40 mg PO DAILY 09/02/18 [History Confirmed 09/02/18] ramipril 2.5 mg capsule 2.5 mg PO DAILY 09/02/18 [History Confirmed 09/02/18] [facility] Medical History History of myocardial infarction (Acute) Obesity (BMI 30.0-34.9) (Acute) Tobacco dependence (Acute) Hiatal hernia with GERD (Acute) Heart attack (Acute) History of back problems (Acute) Surgical History H/O heart artery stent (Acute) S/P bilateral inguinal hernia repair (Acute) Family History Father Colon cancer Diabetes Heart disease Hypertension CAD (coronary artery disease) Sister Breast cancer Mother CAD (coronary artery disease) Hypertension Heart disease Social History Smoking Status: Light Smoker (<10/day) alcohol intake: current alcohol intake frequency: a few times a week Alcohol type: beer HPI HPI HPI: FREDERIC OVALLES, is a 58 M who presents to the office today for surgical consultation regarding intractable gastroesophageal reflux disease. The patient states that September 2016 he underwent extensive evaluation per Dr Rachel who has since left [facility]. The patient seems to describe upper endoscopy and esophageal manometry. He does not recall whether he had a barium swallow. 2 weeks after that he had an acute myocardial infarction and had 2 stents placed. He has been treated with Brilinta ever since. Recently he was seen by his [facility] resistor coater Dr Marco Elizabeth he had his Brilinta stopped. The patient is wanting to establish care locally here in [place]. He could not have his surgical treatment of his reflux until his anticoagulation ceased. He has been a longtime cigarette smoker. After his acute myocardial infarction he stopped smoking for 1 year but now he has resumed smoking. He has put on weight since his acute myocardial infarction now weighing 233 pounds with a BMI of 31.6 he is dependent upon Prilosec. He claims that occasionally food gets stuck and he has to retch and vomit. He has never had to have an emergency procedure to remove a food impaction. He claims that he has to sleep sitting fully upright. He complains of shortness of breath coughing sputtering at night. He is dependent upon his omeprazole. Only previous abdominal surgery has been remote bilateral inguinal hernia repairs via open technique. Patient is referred by his primary care physician Dr. Jocelin Saunders for surgical consultation regarding intractable gastroesophageal reflux disease and a written copy of my surgical consult recommendations will be returned to her ROS General General: Yes weight change and fatigue; no appetite, colon cancer, breast cancer or weakness HEENT HEENT: No difficulty swallowing, eye injury, eye surgery, swollen glands or hoarseness Endo Endocrine: No thyroid disease, diabetes mellitus, thyroid cancer, Hair loss, heat intolerance or cold intolerance Skin Skin: No rash or changing moles Breast Breast: No left breast lump, right breast lump, nipple discharge, breast pain, abnormal mammogram, abnormal US or breast enlargement Musc Musculoskeletal: Yes back problems; no arthritis, rheumatoid arthritis, gout or joint pain Cardio Cardiovascular: Yes heart attack and heart stent; no murmur, pacemaker, heart disease, atrial fibrillation, high blood pressure, palpitations, shortness of breat with exertion or chest pain Psych Psychiatric: No depression, anxiety or hearing voices Resp Respiratory: Yes shortness of breath, No sleep apnea, Yes cough, No COPD, No asthma, No emphysema, No wheezing Gastro Gastrointestinal: Yes abdominal pain, Yes nausea or vomiting, No diarrhea, No constipation, No blood in stool, Yes acid reflux, No hemorrhoids, No ulcers, No gallbladder problem, No black,tarry stools Reynaldo Hematologic: No blood thinners, No blood disorders, No bleeding, No anemia, No blood clots Neuro Neurologic: No system reviewed and no additional complaints, except as docu, No as per HPI, No abnormal walking, No abnormal hearing, No abnormal movements, No abnormal speech, No behavioral changes, No burning sensations, No confusion, No seizure-like activity, No unsteadiness, No dizziness, No localized weakness, No frequent falls, No headache(s), No lack of coordination, No loss of vision, No memory loss, No numbness, No other visual disturbances, No radiating pain, No restless legs, No sensory deficit, No fainting, No tingling, No tremor(s), No weakness, No other Exam Const General: cooperative Nutritional Appearance: obese Orientation: alert, awake HENAR Other: Mustache in place with tobacco staining noted Eyes General: appearance normal, both eyes and all related structures Chest Breast Palpation: No nipple discharge Other: Increased anterior posterior diameter Resp Effort AND Inspection: normal respiratory effort Auscultation: clear to auscultation bilaterally Cardio Rate: regular rate Rhythm: regular rhythm Heart Sounds: no murmurs Other: Bilateral carotids are 3+. I do not detect a bruit. Bilateral brachials 3+. Left radial 3+. Right radial 0. Bilateral femorals 3+. Bilateral popliteals 3+ GI Other: Soft, nontender, overweight, well-healed bilateral groin incisions, normal bowel sounds Musc Cervical Spine: normal cervical lordosis Skin General: no rashes or lesions noted Neuro Cranial Nerves: CN's II-XI intact bilaterally Extrem General: no calf tenderness bilaterally Psych Affect: normal affect Assessment AND Plan Problems 1. Hiatal hernia with GERD K21.9; K44.9 2. Tobacco dependence F17.200 3. Obesity (BMI 30.0-34.9) E66.9 4. History of myocardial infarction I25.2 Plan 58-year-old gentleman who symptoms are very much consistent with very severe reflux disease associated with a hiatal hernia. We unfortunately have no records from his previous evaluation of 2017. We will contact [facility] tomorrow with a request for these results. The patient has cardiac disease I will want to obtain carotid duplex imaging if that is not already been achieved By patient report his primary care physician is already chasing his cardiac status with a stress test this week. The patient is requesting cardiology consultation locally and we will facilitate that referral. Pending information available from his previous evaluations and his cardiac evaluation we will then have him return to the office to discuss the potential need for any repeat evaluations versus surgical treatment options. I have vigorously encouraged the patient to immediately cease his tobacco use. He seems amenable to that. He has had an opportunity to ask and have questions answered. I very much appreciate the kind opportunity of assisting with his surgical care. CC: Dr. Jocelin Thompson M.D., F.A.C.S. Coding Level of Care Code Comprehensive,moderate Diagnoses Hiatal hernia with GERD K21.9; K44.9 Tobacco dependence F17.200 Obesity (BMI 30.0-34.9) E66.9 History of myocardial infarction I25.2 09/02/18 1759 <Electronically signed by Wolfgang Thompson MD> Date Wolfgang Thompson MD Cosigner Signature: Date (if applicable) CC: Jocelin Thakur Start: 01-20-2017 History of placement of stent for coronary artery disease History of coronary artery stent placement Dr. Hector Hsu MD Comment on above: PCI-NICA-Mid LAD 4.0 x 20 mm Synergy, NICA -Mid RCA w/ 4.0 x 16mm Synergy 01/20/[address] Jocelin Saunders Work Phone: Bacteria identified in Blood by Culture Dr. Jocelin Saunders Work Phone: Bacterial culture Dr. Saturnino Saunders Work Phone: H/O: surgery Status post lase r lithotripsy of ureteral calculus Dr. Jocelin Saunders DO Work Phone: Comment on above: 12/23/2023 Heart stents Talia Nguyen Comment on above: 02/04 Heart stents Vinod Reddy Comment on above: 02/04 Heart stents Vinod Reddy Comment on above: 02/04 Heart stents Talia Nguyen Comment on above: 02/04 Heart stents Talia Nguyen Comment on above: 02/04 Heart stents Eufemia Gravandrea Comment on above: 02/04 Heart stents Eufemia Gravandrea Comment on above: 02/04 Heart stents Talia Nguyen Comment on above: 02/04 Heart stents Eufemia Gravius Comment on above: 02/04 Heart stents Eufemia Gravius Comment on above: 02/04 Heart stents Eufemia Gravius Comment on above: 02/04 Heart stents Polina Bhat Comment on above: 02/04 Heart stents Vinod Reddy Comment on above: 02/04 Heart stents Polina Cross DIRECTOR OF PSYCHIATRY Comment on above: 02/04 Heart stents Letty Slarb DIRECTOR OF PSYCHIATRY Comment on above: 02/04 Heart stents Eufemia Gravius DIGITAL PRODUCTION ARTIST Comment on above: 02/04 Heart stents Eufemia Gravius DIGITAL PRODUCTION ARTIST Comment on above: 02/04 Hernia repair Talia Nguyen Comment on above: 12 yrs Hernia repair Vinod Reddy Comment on above: 12 yrs Hernia repair Vinod Reddy Comment on above: 12 yrs Hernia repair Talia Messenger Comment on above: 12 yrs Hernia repair Talia Messenger Comment on above: 12 yrs Hernia repair Eufemia Gravius Comment on above: 12 yrs Hernia repair Eufemai Gravius Comment on above: 12 yrs Hernia repair Talia Nguyen Comment on above: 12 yrs Hernia repair Eufemia Gravius Comment on above: 12 yrs Hernia repair Eufemia Gravius Comment on above: 12 yrs Hernia repair Eufemia Gravius Comment on above: 12 yrs Hernia repair Polina Bhat Comment on above: 12 yrs Hernia repair Vinod Reddy Comment on above: 12 yrs Hernia repair Polina Cross DIRECTOR OF PSYCHIATRY Comment on above: 12 yrs Hernia repair Letty Slarb DIRECTOR OF PSYCHIATRY Comment on above: 12 yrs Hernia repair Eufemia Gravius DIGITAL PRODUCTION ARTIST Comment on above: 12 yrs Hernia repair Eufemia Gravius DIGITAL PRODUCTION ARTIST Comment on above: 12 yrs Hernia repair Kayela Grand DIGITAL PRODUCTION ARTIST Hernia repair Kayela Russell DIGITAL PRODUCTION ARTIST Hernia repair Kayela Grand DIGITAL PRODUCTION ARTIST Hernia repair Víctor Mick DIRECTOR OF PSYCHIATRY Hernia repair Víctor Mick DIRECTOR OF PSYCHIATRY Investigation of tra nsfusion reaction Dr. Jocelin Saunders Work Phone: Investigation of tra nsfusion reaction Dr. Jocelin Saunders Work Phone: SARS-CoV-2 & FLU Ant igen (Rapid) Dr. Jocelin Saunders Work Phone: SARS-CoV-2 & FLU Ant igen (Rapid) Dr. Jocelin Saunders Work Phone: Kayela Russell DIGITAL PRODUCTION ARTIST Kayela Russell DIGITAL PRODUCTION ARTIST Kayela Grand DIGITAL PRODUCTION ARTIST Víctor Mick DIRECTOR OF PSYCHIATRY Víctor Doe Run DIRECTOR OF PSYCHIATRY Plan of Treatment Date Care Activity Detail Author Start: 12-21-2029 Tetanus vaccination TETANUS [facility] Start: 07-27-2025 End: 07-27-2025 Patient encounter procedure [facility] Start: 05-11-2025 ambulatory Ambulatory Facility:[facility] Start: 04-16-2025 Hepatic function panel [facility] Start: 04-16-2025 Radionuclide imaging of perfusion of myocardium under exercise stress [facility] Start: 04-16-2025 Thyroid stimulating hormone measurement [facility] Start: 04-16-2025 Thyroxine measurement [facility] Start: 07-28-2024 End: 07-28-2025 BCR/ABL BLOOD OR BONE MARROW,T(9;22),QUANT [facility] Comment on above: Expected: 07/28/2024, Expires: Start: 07-28-2024 End: 07-28-2024 Patient encounter procedure 07/28/2024 2:00 PM EST Office Visit [facility] [address] [place] [id number] Katelyn [place] MD [address] [facility] [address] [place] [address] [facility] Start: 03-22-2024 COVID-19 VACCINE ( season) COVID-19 VACCINE ( season) [facility] Start: 03-22-2024 Influenza vaccination INFLUENZA VACCINE (#1) [facility] Start: 10-23-2023 Procedure [facility] Start: 07-30-2023 End: 07-30-2024 MR Lumbar spine WO and W contrast IV MRI SPINE LUMBAR WITH AND WITHOUT CONTRAST Imaging STAT Lumbar radiculopathy Expected: 07/30/2023, Expires: 07/30/2024 [facility] Comment on above: Expected: 07/30/2023, Expires: Start: 04-03-2023 Procedure [facility] Work Phone: Start: 04-03-2023 Provider Instructions for Treatment [facility]; [facility] Work Phone: Start: 03-22-2023 COVID-19 VACCINE () COVID-19 VACCINE () [facility] Start: 03-22-2023 Influenza vaccination INFLUENZA VACCINE (#1) [facility] Start: 01-30-2023 Procedure [facility]; [facility] Work Phone: Start: 01-30-2023 Provider Instructions for Treatment [facility]; [facility] Work Phone: Start: 12-31-2022 Procedure Education [facility]; [facility] Work Phone: Start: 12-31-2022 Provider Instructions for Treatment [facility]; [facility] Work Phone: Start: 12-31-2022 Assay of prostate specific antigen total [facility]; [facility] Work Phone: Start: 12-31-2022 Assay of thyroid stimulating hormone tsh [facility]; [facility] Work Phone: Start: 12-31-2022 Urnls dip stick/tablet reagent auto microscopy [facility]; [facility] Work Phone: Start: 12-31-2022 Urine albumin quantitative [facility]; [facility] Work Phone: Start: 12-31-2022 Comprehensive metabolic panel [facility]; [facility] Work Phone: Start: 12-31-2022 Blood count complete auto&auto difrntl wbc [facility]; [facility] Work Phone: Start: 12-31-2022 Lipid panel [facility]; [facility] Work Phone: Start: 09-27-2022 Procedure [facility]; [facility] Work Phone: Start: 09-27-2022 Provider Instructions for Treatment [facility]; [facility] Work Phone: Start: 08-16-2022 Plain chest X-ray Chest PA and Lateral [facility] Start: 08-16-2022 [facility] Start: 08-08-2022 Procedure [facility] Start: 06-28-2022 Procedure [facility]; [facility] Work Phone: Start: 06-28-2022 Provider Instructions for Treatment [facility]; [facility] Work Phone: Start: 06-28-2022 Assay of thyroid stimulating hormone tsh [facility]; [facility] Work Phone: Start: 06-28-2022 Urnls dip stick/tablet reagent auto microscopy [facility]; [facility] Work Phone: Start: 06-28-2022 Urine albumin quantitative [facility]; [facility] Work Phone: Start: 06-28-2022 Comprehensive metabolic panel [facility]; [facility] Work Phone: Start: 06-28-2022 Lipid panel [facility]; [facility] Work Phone: Start: 06-28-2022 Blood count complete auto&auto difrntl wbc [facility]; [facility] Work Phone: Start: 06-06-2022 Procedure Education [facility]; [facility] Work Phone: Start: 06-06-2022 Provider Instructions for Treatment [facility]; [facility] Work Phone: Start: 06-04-2022 Vital signs measurements [facility] [place] Start: 06-04-2022 Chemotherapy care management [facility] Start: 06-03-2022 End: 06-03-2022 Blood culture [facility] Work Phone: Start: 06-03-2022 Chemotherapy care management [facility] Start: 06-03-2022 [facility] Start: 03-05-2022 Procedure [facility]; [facility] Work Phone: Start: 03-05-2022 Provider Instructions for Treatment [facility]; [facility] Work Phone: Start: 03-05-2022 Assay of thyroid stimulating hormone tsh TSH (68699) [facility]; [facility] Work Phone: Start: 03-05-2022 Urnls dip stick/tablet reagent auto microscopy URINALYSIS, W/ MICRO (09959) [facility]; [facility] Work Phone: Start: 03-05-2022 Urine albumin quantitative MICROALBUMIN: CREATININE RATIO (96603) AND (78130) [facility]; [facility] Work Phone: Start: 03-05-2022 Comprehensive metabolic panel METABOLIC PANEL, COMPREHENSIVE (38041) [facility]; [facility] Work Phone: Start: 03-05-2022 Lipid panel LIPID PANEL (64036) [facility]; [facility] Work Phone: Start: 03-05-2022 Blood count complete auto&auto difrntl wbc CBC W/AUTO DIFF WBC (93355) [facility]; [facility] Work Phone: Start: 10-30-2021 Procedure Education [facility]; [facility] Work Phone: Start: 10-30-2021 Provider Instructions for Treatment [facility]; [facility] Work Phone: Start: 10-30-2021 Assay of thyroid stimulating hormone tsh [facility]; [facility] Work Phone: Start: 10-30-2021 Urine albumin quantitative [facility]; [facility] Work Phone: Start: 10-30-2021 Comprehensive metabolic panel [facility]; [facility] Work Phone: Start: 10-30-2021 Lipid panel [facility]; [facility] Work Phone: Start: 10-30-2021 Blood count complete auto&auto difrntl wbc [facility]; [facility] Work Phone: Start: 06-26-2021 Procedure Education [facility]; [facility] Work Phone: Start: 06-26-2021 Provider Instructions for Treatment [facility]; [facility] Work Phone: Start: 12-21-2020 Procedure Education [facility]; [facility] Work Phone: Start: 12-21-2020 Provider Instructions for Treatment [facility]; [facility] Work Phone: Start: 12-21-2020 Hepatitis c antibody HEPATITIS C ANTIBODY (72156) [facility]; [facility] Work Phone: Start: 12-21-2020 Assay of prostate specific antigen total PSA (PROSTATE SPECIFIC ANTIGEN) (V76.44) [facility]; [facility] Work Phone: Start: 12-21-2020 Lipoprotein blood kaylie numbers & subclasses NMR Profile (85427) [facility]; [facility] Work Phone: Start: 12-21-2020 Assay of thyroid stimulating hormone tsh TSH (52942) [facility]; [facility] Work Phone: Start: 12-21-2020 Urnls dip stick/tablet reagent auto microscopy URINALYSIS, W/ MICRO (07003) [facility]; [facility] Work Phone: Start: 12-21-2020 Urine albumin quantitative MICROALBUMIN: CREATININE RATIO (95791) AND (93356) [facility]; [facility] Work Phone: Start: 2020 RSV VACCINE (1 - 1-dose 60+ series) RSV VACCINE (1 - 1-dose 60+ series) [facility] Start: 2020 RSV VACCINE (1 - Risk 60-74 years 1-dose series) RSV VACCINE (1 - Risk 60-74 years 1-dose series) [facility] Start: 05-02-2020 Procedure Education [facility] Work Phone: Start: 05-02-2020 Provider Instructions for Treatment [facility] Work Phone: Start: 05-02-2020 HbA1c (Bld) [Mass fraction] HGB A1C (97283) [facility] Work Phone: Start: 05-02-2020 Hemoglobin glycosylated a1c [facility] Work Phone: Start: 04-25-2020 Procedure Education [facility] Work Phone: Start: 04-25-2020 Provider Instructions for Treatment [facility] Work Phone: Start: 04-25-2020 TSH Qn TSH (68142) [facility] Work Phone: Start: 04-25-2020 Urnls dip stick/tablet reagent auto microscopy URINALYSIS, W/ MICRO (86683) [facility] Work Phone: Start: 04-25-2020 Urine albumin quantitative MICROALBUMIN: CREATININE RATIO (94144) AND (46300) [facility] Work Phone: Start: 04-25-2020 Comprehensive metabolic panel METABOLIC PANEL, COMPREHENSIVE (15386) [facility] Work Phone: Start: 04-25-2020 Blood count complete auto&auto difrntl wbc CBC W/AUTO DIFF WBC (13251) [facility] Work Phone: Start: 04-25-2020 Lipoprotein blood kaylie numbers & subclasses NMR Profile (08402) [facility] Work Phone: Start: 02-22-2020 Blood count smear mcrscp w/mnl difrntl wbc count [facility] Work Phone: Start: 02-05-2020 Blood count complete automated [facility] Work Phone: Start: 02-05-2020 CBC, PLATELETS & MANUAL DIFF (32864) [facility] Work Phone: Start: 02-05-2020 Blood smear peripheral interp phys w/writ report [facility] Work Phone: Start: 02-01-2020 Procedure Education [facility] Work Phone: Start: 02-01-2020 Provider Instructions for Treatment [facility] Work Phone: Start: 02-01-2020 CRP [Mass/Vol] C-REACTIVE PROTEIN (68567) [facility] Work Phone: Start: 02-01-2020 Sedimentation rate rbc non-automated ESR-F (SED RATE ERYTHROCYTE - MALE) (86257) [facility] Work Phone: Start: 02-01-2020 Blood count complete auto&auto difrntl wbc CBC W/AUTO DIFF WBC (89127) [facility] Work Phone: Start: 01-11-2020 Lipoprotein blood kaylie numbers & subclasses [facility] Work Phone: Comment on above: do in late in mar 2020 Start: 01-11-2020 Blood count complete auto&auto difrntl wbc CBC W/AUTO DIFF WBC (46211) [facility] Work Phone: Comment on above: early january Start: 01-11-2020 Procedure Education [facility] Work Phone: Start: 01-11-2020 Provider Instructions for Treatment [facility] Work Phone: Start: 12-24-2019 Procedure Education [facility] Work Phone: Start: 12-24-2019 Provider Instructions for Treatment [facility] Work Phone: Start: 04-13-2019 Procedure Education [facility] Work Phone: Start: 04-13-2019 Provider Instructions for Treatment [facility] Work Phone: Start: 04-13-2019 Assay of prostate specific antigen total PSA (PROSTATE SPECIFIC ANTIGEN) (V76.44) [facility] Work Phone: Start: 04-13-2019 Lipoprotein blood kaylie numbers & subclasses NMR Profile (11451) [facility] Work Phone: Start: 04-13-2019 Urnls dip stick/tablet reagent auto microscopy URINALYSIS, W/ MICRO (16544) [facility] Work Phone: Start: 04-13-2019 Urine albumin quantitative MICROALBUMIN: CREATININE RATIO (74507) AND (47253) [facility] Work Phone: Start: 04-13-2019 Comprehensive metabolic panel METABOLIC PANEL, COMPREHENSIVE (95271) [facility] Work Phone: Start: 04-13-2019 Blood count manual cell count each CBC with auto diff (86750) [facility] Work Phone: Start: 01-12-2019 Procedure Education [facility] Work Phone: Start: 01-12-2019 Provider Instructions for Treatment [facility] Work Phone: Start: 12-22-2018 Procedure Education [facility] Work Phone: Start: 12-08-2018 Provider Instructions for Treatment [facility] Work Phone: Start: 10-31-2018 Procedure Education [facility] Work Phone: Start: 10-31-2018 Provider Instructions for Treatment [facility] Work Phone: Start: 10-28-2018 Procedure Education [facility] Work Phone: Start: 10-28-2018 Provider Instructions for Treatment [facility] Work Phone: Start: 10-28-2018 Bacteria identified Respiratory culture Nom (Sput) Sputum Culture (11781) [facility] Work Phone: Start: 09-11-2018 Procedure Education [facility] Work Phone: Start: 09-11-2018 Provider Instructions for Treatment [facility] Work Phone: Start: 08-26-2018 Procedure Education [facility] Work Phone: Start: 08-26-2018 Provider Instructions for Treatment [facility] Work Phone: Start: 08-26-2018 Protein [Mass/Vol] LIPOPROTEIN, BLD, BY NMR (35942) [facility] Work Phone: Start: 08-26-2018 25 hydroxy includes fractions if performed CALCIFIDIOL (97610) VIT D 25 [facility] Work Phone: Start: 08-26-2018 Cobalamin (Vitamin B12) [Mass/Vol] VITAMIN B-12 (CYANOCOBALAMIN) (11352) [facility] Work Phone: Start: 08-26-2018 Sedimentation rate rbc non-automated SED RATE ERYTHROCYTE (74904) [facility] Work Phone: Start: 08-26-2018 Comprehensive metabolic panel METABOLIC PANEL, COMPREHENSIVE (34880) [facility] Work Phone: Start: 08-26-2018 Blood count complete automated CBC (AUTO) (51361) [facility] Work Phone: Start: 08-26-2018 Troponin I.cardiac [Mass/Vol] Troponin I (03506) [facility] Work Phone: Start: 08-26-2018 TSH Qn TSH (88879) [facility] Work Phone: Start: 08-26-2018 Free T4 [Mass/Vol] T4, FREE (THYROXINE) (72790) [facility] Work Phone: Start: 08-26-2018 Free T3 [Mass/Vol] T3, FREE (TRIDOTHYRONINE) (40720) [facility] Work Phone: Start: 2015 Prostate specific antigen measurement PROSTATE CANCER SCREENING DISCUSSION [facility] Start: 2010 Prostate specific antigen measurement PROSTATE CANCER SCREENING DISCUSSION [facility] Start: 2010 Screening for malignant neoplasm of lung LUNG CANCER SCREENING [facility] Start: 2005 Screening for malignant neoplasm of colon COLORECTAL CANCER SCREENING DISCUSSION [facility] Start: 2000 Lipid panel LIPID SCREENING [facility] Start: 1979 Pneumococcal vaccination PNEUMOCOCCAL VACCINE SERIES (1 of 2 - PCV) [facility] Start: 1979 Zoster vaccine hzv live for subcutaneous use ZOSTER (SHINGLES) VACCINE (1 of 2) [facility] Start: 1975 HIV screening HIV SCREENING DISCUSSION [facility] Start: 1966 PNEUMOCOCCAL VACCINE SERIES (1 - PCV) PNEUMOCOCCAL VACCINE SERIES (1 - PCV) [facility] Start: 1966 PNEUMOCOCCAL VACCINE SERIES (1 of 2 - PCV) PNEUMOCOCCAL VACCINE SERIES (1 of 2 - PCV) [facility] Start: 1960 Hepatitis C screening HEPATITIS C VIRUS SCREENING [facility] Anaerobic Culture Anaerobic Culture [facility] Work Phone: Bacteria identified in Blood by Culture Blood Culture [facility] Work Phone: Bacteria identified in Body fluid by Culture [facility] Work Phone: Bacteria identified in Unspecified specimen by Anaerobe culture [facility] Work Phone: End: 07-25-2024 BCR/ABL BLOOD OR BONE MARROW,T(9;22),QUANT BCR/ABL BLOOD OR BONE MARROW,T(9;22),QUANT Lab Routine CML (chronic myeloid leukemia) q3m for 99 Occurrences starting 07/25/2023 until 07/25/2024, 1 completed [facility] Comment on above: q3m for 99 Occurrences starting 07/25/19 until 07/25/2024, 1 completed BCR/ABL, BLOOD OR MALLORY NE MARROW, FINAL BCR/ABL, BLOOD OR BONE MARROW, FINAL Lab Routine CML (chronic myeloid leukemia) 07/30/2023 1:52 PM EST [facility] Blood culture [facility] Work Phone: Body Fluid Culture Body Fluid Culture [facility] Work Phone: CBC W Auto Different ial panel - [facility] Work Phone: CBC W Auto Different ial panel - [facility] CBC W Auto Different ial panel - [facility] CBC W Auto Different ial panel - [facility] CBC W Auto Different ial panel - [facility] CBC W Auto Different ial panel - [facility] CBC W Auto Different ial panel - [facility] CBC W Auto Different ial panel - [facility] End: 07-25-2024 Complete blood count with white cell differential, automated CBC, EDIF, PLATELET Lab Routine CML (chronic myeloid leukemia) 12 Occurrences starting 07/25/2023 until 07/25/2024, 1 completed [facility] Work Phone: Comment on above: 12 Occurrences starting 07/25/2023 until 07/25/2024, 1 completed End: 07-25-2024 Comprehensive metabolic 2000 panel - Serum or Plasma COMPREHENSIVE METABOLIC PANEL Lab Routine CML (chronic myeloid leukemia) 12 Occurrences starting 07/25/2023 until 07/25/2024, 1 completed [facility] Comment on above: 12 Occurrences starting 07/25/2023 until 07/25/2024, 1 completed [facility]o lic 1999 panel - Serum or Plasma [facility] Comprehensive metabo lic 1999 panel - Serum or Plasma [facility] CT Chest [facility] [place] Cytology report of B john fluid Cyto stain [facility] Work Phone: Electrocardiographic procedure [facility] Hemoglobin A1c/Hemoglobin.total in Blood [facility] [facility] 1996 panel - S radha or Plasma [facility] Magnesium [Mass/volu me] in Serum or Plasma [facility] Magnesium [Mass/volu me] in Serum or Plasma [facility] Magnesium measurement [facility] Patient Education [facility] Work Phone: Patient referral [facility] Work Phone: Procedure [facility] Work Phone: Procedure [facility] Procedure [facility] Procedure [facility] Procedure [facility] Radionuclide imaging of perfusion of myocardium under exercise stress [facility] Reticulocyte count [facility] Serum inorganic phos phate measurement [facility] XR Chest PA and Lateral [facility] Work Phone: [facility] Work Phone: [facility] Work Phone: [facility] Work Phone: [facility] Work Phone: [facility] Work Phone: [facility] Work Phone: [facility] Work Phone: [facility] Work Phone[facility] Work Phone: [facility] Work Phone: [facility] Work Phone: [facility] Work Phone: [facility] Work Phone: [facility] Work Phone: [facility] Work Phone: [facility] Work Phone: [facility] Work Phone: [facility] Work Phone: [facility] Immunizations Immunization Date Immunization Notes Care Provider Fa cili 04-25-2022 influenza virus vaccine, unspecified formulation Katelyn Lawton MD Work Phone: [facility] 05-31-2021 influenza, seasonal, injectable Jocelin Saunders DO Work Phone: [facility] Work Phone: 05-26-2021 COVID-Pfizer (10 MCG/0.2 ML) Jocelin Saunders DO Work Phone: [facility] Work Phone: 05-23-2021 influenza, injectabl e, quadrivalent, preservative free Dr. Jocelin Saunders Work Phone: [facility] 05-23-2021 influenza, seasonal, injectable Dr. Jocelin Saunders Work Phone: [facility] 10-20-2020 COVID-19 (Pfizer) Jocelin osullivan DO Work Phone: [facility]; [facility] Work Phone: 09-19-2020 COVID-19 (Pfizer) Jocelin osullivan DO Work Phone: [facility]; [facility] Work Phone: 12-22-2019 tetanus toxoid, adsorbed Jocelin Saunders [facility] Work Phone: 04-09-2019 influenza, seasonal, injectable Jocelin Saunders [facility] Work Phone: Comment on above: at pharmacy 08-25-2018 influenza, injectabl e, quadrivalent, preservative free Dr. Jocelin Saunders Work Phone: [facility] 08-25-2018 influenza, seasonal, injectable Dr. Jocelin Saunders Work Phone: [facility] 05-22-2018 influenza, seasonal, injectable Jocelin Saunders [facility] Work Phone: Payers Date Payer Category Payer Medicare MEDICARE [employer] HMO PPO MEDICARE [employer] HMO PPO [id number] 2021-Present [address] [place] [address] [id number] 2021 Medicare (Managed Care) MEDICARE HU[employer]NA HMO PPO [id number] 2020 Self-pay [id number] 2020 Unknown [id number] 2020 Medicare [id number] 1960 Unknown [id number]. [id number] 1960 Unknown [id number] [id number]. 716 1960 Unknown [id number] 2.16.840.1.146697.3.579.2. 594 Medicare MEDICARE PART A B [id number] Unknown Unknown [id number] Unknown [id number] [id number]. 462 Unknown [id number] 2.16.840.1.939433.3.579.2. 462 Unknown [id number] 2.16.840.1.396372.3.579.2. 462 Unknown [id number] 2.16.840.1.198320.3.579.2. 462 Unknown [id number] 2.16.840.1.153360.3.579.2. 462 Unknown [id number] 2.16.840.1.946686.3.579.2. 462 Unknown [id number] 2.16.840.1.287741.3.579.2. 462 Unknown [id number] 2.16.840.1.931761.3.579.2. 462 Unknown [id number] 2.16.840.1.504560.3.579.2. 462 Unknown [id number] 2.16.840.1.308408.3.579.2. 462 Unknown [id number] 2.16.840.1.185811.3.579.2. 462 Unknown [id number] 2.16.840.1.177883.3.579.2. 462 Unknown [id number] [id number]. 462 Social History Date Type Detail Facility Alcohol Use: Moderate alcohol use. [facility] Work Phone: Comment on above: 1-2 a week Start: 07-10-2022 End: 07-28-2024 Caffeine Use [facility] Work Phone: Comment on above: qd 1/2 ppd Exercise History: Does not exercise. [facility] Work Phone: Living Situation: Lives with spouse. [facility] Work Phone: Pets/Animals: Dog. [facility] Work Phone: Alcohol Use: Alcohol Use: [facility] Work Phone: Comment on above: 1-2 a week Exercise History: Exercise History: [facility]pr [facility]; [facility] Work Phone: Living Situation: Living Situation: [facility]; [facility] Work Phone: Pets/Animals: Pets/Animals: [facility]; [facility] Work Phone: Start: 06-03-2022 End: 06-26-2023 Tobacco smoking status NHIS Unknown if ever smoked [facility] Start: 08-25-2020 Cigarettes [facility] Start: 1960 Sex Assigned At Male W [facility] Start: 07-10-2022 End: 12-23-2023 Tobacco smoking status NHIS Smokes tobacco daily [facility] History of tobacco use Cigarette Smoker [facility] Start: 07-10-2022 Tobacco use and exposure Smokeless tobacco non-user [facility] Start: 07-23-2022 End: 08-06-2023 Alcohol intake Lifetime non-drinker (finding) [facility] Start: 07-23-2022 End: 07-28-2024 Tobacco use panel [facility] Adolescent depressio n screening assessment 2 [facility] Start: 1960 Sex Assigned At Not on file [facility] Start: 07-21-2024 Gender identity Identifies as male gender (finding) [facility] Start: 07-21-2024 Sexual orientation Heterosexual (fin ding) [facility] Start: 07-04-2022 Sex Male (finding) [facility] Medical Equipment Procedure Code Equipment Code Equipment Original Text Equipment Identifier Dates Migue fundoplication CLIP,HEMOL OCK MED WECK FDA Start: 10-15-2018 Migue fundoplication CLIP,HEMOL OCK MED WECK FDA Start: 10-15-2018 Migue fundoplication PATCH,RIVERA TID THIN FDA Start: 10-15-2018 Migue fundoplication CLIP,HEMOL OCK MED WECK FDA Start: 10-15-2018 Migue fundoplication CLIP,HEMOL OCK MED WECK FDA Start: 10-15-2018 Migue fundoplication PATCH,RIVERA TID THIN FDA Start: 10-15-2018 Migue fundoplication CLIP,HEMOL OCK MED WECK FDA Start: 10-15-2018 Migue fundoplication CLIP,HEMOL OCK MED WECK FDA Start: 10-15-2018 Migue fundoplication PATCH,RIVERA TID THIN FDA Start: 10-15-2018 Migue fundoplication CLIP,HEMOL OCK MED WECK FDA Start: 10-15-2018 Migue fundoplication CLIP,HEMOL OCK MED WECK FDA Start: 10-15-2018 Migue fundoplication PATCH,RIVERA TID THIN FDA Start: 10-15-2018 Migue fundoplication CLIP,HEMOL OCK MED WECK FDA Start: 10-15-2018 Migue fundoplication CLIP,HEMOL OCK MED WECK FDA Start: 10-15-2018 Migue fundoplication PATCH,RIVERA TID THIN FDA Start: 10-15-2018 Migue fundoplication CLIP,HEMOL OCK MED WECK FDA Start: 10-15-2018 Migue fundoplication CLIP,HEMOL OCK MED WECK FDA Start: 10-15-2018 Migue fundoplication PATCH,RIVERA TID THIN FDA Start: 10-15-2018 Migue fundoplication CLIP,HEMOL OCK MED WECK FDA Start: 10-15-2018 Migue fundoplication CLIP,HEMOL OCK MED WECK FDA Start: 10-15-2018 Migue fundoplication PATCH,RIVERA TID THIN FDA Start: 10-15-2018 Migue fundoplication CLIP,HEMOL OCK MED WECK FDA Start: 10-15-2018 Migue fundoplication CLIP,HEMOL OCK MED WECK FDA Start: 10-15-2018 Migue fundoplication PATCH,RIVERA TID THIN FDA Start: 10-15-2018 Migue fundoplication CLIP,HEMOL OCK MED WECK FDA Start: 10-15-2018 Migue fundoplication CLIP,HEMOL OCK MED WECK FDA Start: 10-15-2018 Migue fundoplication PATCH,RIVERA TID THIN FDA Start: 10-15-2018 Migue fundoplication CLIP,HEMOL OCK MED WECK FDA Start: 10-15-2018 Migue fundoplication CLIP,HEMOL OCK MED WECK FDA Start: 10-15-2018 Migue fundoplication PATCH,RIVERA TID THIN FDA Start: 10-15-2018 Migue fundoplication CLIP,HEMOL OCK MED WECK FDA Start: 10-15-2018 Imgue fundoplication CLIP,HEMOL OCK MED WECK FDA Start: 10-15-2018 Migue fundoplication PATCH,RIVERA TID THIN FDA Start: 10-15-2018 Migue fundoplication CLIP,HEMOL OCK MED WECK FDA Start: 10-15-2018 Migue fundoplication CLIP,HEMOL OCK MED WECK FDA Start: 10-15-2018 Migue fundoplication PATCH,RIVERA TID THIN FDA Start: 10-15-2018 Migue fundoplication CLIP,HEMOL OCK MED WECK FDA Start: 10-15-2018 Migue fundoplication CLIP,HEMOL OCK MED WECK FDA Start: 10-15-2018 Migue fundoplication PATCH,RIVERA TID THIN FDA Start: 10-15-2018 Migue fundoplication CLIP,HEMOL OCK MED WECK FDA Start: 10-15-2018 Migue fundoplication CLIP,HEMOL OCK MED WECK FDA Start: 10-15-2018 Migue fundoplication PATCH,RIVERA TID THIN FDA Start: 10-15-2018 Functional Status Date Assessment Result Facility 12-21-2020 LP-IR Score 57 [facility] Work Phone: Comment on above: INSULIN RESISTANCE Rigoberto GARCIA <--Insulin Sensitive Insulin Resistant--> Percentile in Reference PopulationInsulin Resistance ScoreLP-IR Score Low 25th 50th 75th High <27 27 45 63 >63LP-IR Score is inaccurate if patient is non-fasting. .The LP-IR score is a laboratory developed index that has beenassociated with insulin resistance and diabetes risk and should beused as one component of a physician's clinical assessment. Test(s) 668085-AYI-V ; 835748-YUD-I; 402313-Bdmabhmigkieh; 455792-Tsedmwbaezz, Total; 256175-WJL-G (Total); 505946-Vxljl LDL-P; 788554-CQR Size; 253984-OB-OU Scorewas developed and its performance characteristics determinedby [employer]. It has not been cleared or approved by the Foodand Drug Administration.PATIENT WAS FASTINGPERFORMED BY: [facility] [address] [id number] BY: [email or web address] [facility] [id number] 04-26-2020 LP-IR Score 71 [facility] Work Phone: Comment on above: INSULIN RESISTANCE M ARKER <--Insulin Sensitive Insulin Resistant--> Percentile in Reference PopulationInsulin Resistance ScoreLP-IR Score Low 25th 50th 75th High <27 27 45 63 >63LP-IR Score is inaccurate if patient is non-fasting. .The LP-IR score is a laboratory developed index that has beenassociated with insulin resistance and diabetes risk and should beused as one component of a physician's clinical assessment. Test(s) 723046-MKP-X ; 259429-CPF-X; 421580-Fehopgxjvswrn; 181572-Faguhxidraw, Total; 284700-MUN-C (Total); 964867-Wekxl LDL-P; 231666-IXS Size; 627796-GT-DX Scorewas developed and its performance characteristics determinedby [employer]. It has not been cleared or approved by the Foodand Drug Administration.PATIENT WAS FASTINGPERFORMED BY: [facility] [address] [id number] BY: [employer]6370 [facility] [id number] 12-24-2019 LP-IR Score 69 [facility] Work Phone: Comment on above: INSULIN RESISTANCE M ARKER <--Insulin Sensitive Insulin Resistant--> Percentile in Reference PopulationInsulin Resistance ScoreLP-IR Score Low 25th 50th 75th High <27 27 45 63 >63LP-IR Score is inaccurate if patient is non-fasting. .The LP-IR score is a laboratory developed index that has beenassociated with insulin resistance and diabetes risk and should beused as one component of a physician's clinical assessment. Test(s) 002531-YMR-U ; 224440-CSI-D; 783927-GHX-M; 039945-Adyfaesvhrluz; 677339-Ifvjeybhzlv, Total; 325124-JPU-F (Total);879650-Vowpf LDL-P; 156880-AOB Size; 357704-IF-SC Scorewas developed and its performance characteristics determinedby [employer]. It has not been cleared or approved by the Foodand Drug Administration.PATIENT WAS FASTINGPERFORMED BY: [facility] [address] [id number] BY: [facility] [id number] 04-13-2019 LP-IR Score 62 [facility] Work Phone: Comment on above: INSULIN RESISTANCE Rigoberto GARCIA <--Insulin Sensitive Insulin Resistant--> Percentile in Reference PopulationInsulin Resistance ScoreLP-IR Score Low 25th 50th 75th High <27 27 45 63 >63LP-IR Score is inaccurate if patient is non-fasting. .The LP-IR score is a laboratory developed index that has beenassociated with insulin resistance and diabetes risk and should beused as one component of a physician's clinical assessment. Test(s) 309244-GXJ-D ; 550393-CRW-S; 479934-ICW-U; 198877-Oqpmubdmnvujj; 435217-Aowdnpdfqcy, Total; 282840-UGB-T (Total);543151-Teymi LDL-P; 439570-QEX Size; 334544-JD-HZ Scorewas developed and its performance characteristics determinedby [employer]. It has not been cleared or approved by the Foodand Drug Administration.PATIENT WAS FASTINGPERFORMED BY: [facility] [address] [id number] BY: [email or web address] [facility] [id number] 08-26-2018 LP-IR Score 66 [facility] Work Phone: Comment on above: INSULIN RESISTANCE Rigoberto GARCIA <--Insulin Sensitive Insulin Resistant--> Percentile in Reference PopulationInsulin Resistance ScoreLP-IR Score Low 25th 50th 75th High <27 27 45 63 >63LP-IR Score is inaccurate if patient is non-fasting. .The LP-IR score is a laboratory developed index that has beenassociated with insulin resistance and diabetes risk and should beused as one component of a physician's clinical assessment. TheLP-IR score listed above has not been cleared by the [place] Food andDrug Administration. PATIENT NOT FASTINGP ERFORMED BY: BN [facility] [address] [id number] BY: CB [facility] [id number] [facility] [id number] Mental Status Date Assessment Result Facility 06-04-2022 Cognitive function Level Of Cons ciousness Awake;Alert;Appropriate;Follow s Commands [facility] Work Phone: 06-03-2022 Cognitive function Level Of Cons ciousness Awake;Alert;Appropriate;Follow s Commands [facility] Work Phone: Clinical Notes 01-20-2017 to 04-16-2025 Note Date & Type Note Facility 04-16-2025 Progress note [facility] 01-05-2025 Evaluation note Diagnosis Onset Date Resolution 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 January 05 10:42am Nicotine dependence, cigarettes, uncomplicated chronic January 05, 2025 10:42am Encounter for education acute January 21, 2025 11:00am Near syncope acute January 21 11:00am Chronic myeloid leukemia chronic January 21, 2025 11:00am Chronic myeloid leukemia chronic February 04, 2025 11:18am Chronic myeloid leukemia chronic April 16, 2025 8:41am Essential (primary) hypertension chronic April 16, 2025 8:41am History of coronary artery stent placement January 20, 2017 resolved April 16, 2025 8:41am [facility] Work Phone: 1(765) 186-702904-17-2025 Evaluation note* Diagnosis Onset Date Resolution Status Admit Date Chronic myeloid leukemia chronic November 05, 2024 11:20am 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 J une 2024 10:42am Nicotine dependence, cigaret keshia, uncomplicated chronic January 05, 2025 10:42am Encounter for education acute J socorro 2024 11:00am Near syncope acute January 21 11:00am Chronic myeloid leukemia chronic January 21, 2025 11:00am Chronic myeloid leukemia chronic February 04, 2025 11:18am [employer] Work Phone: [phone]) [phone] Evaluation note* Diagnosis Onset Date Resolution Status Admit Date Encounter for education acute A pril 2024 11:00am Near syncope acute October 22 11:00am Chronic myeloid leukemia chronic October 22, 2024 11:00am Chronic myeloid leukemia chronic November 05, 2024 11:20am 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 Patient states [facility] called him and advised him he needsa new prescription. Patient noted to have an active prescription for this medication with refills, however it appears to have been sent to [facility]. Patient given the phone number for [facility] to call when they open in the morning to follow up on this matter. Patient verbalized understanding and will check with pharmacy and will call Dr. Lawton clinic if any further assistance needed. Patient appreciative of information. [facility] Miscellaneous Notes* Telephone Encounter - Maxine Lopez RN - 10/07/2024 7:47 PM EDT Patient is calling the after hours nurse triage line stating he needs a refill for bosutinib 400mg tabs and he only has 2 tabs left. Patient states [facility] called him and advised him he needsa new prescription. Patient noted to have an active prescription for this medication with refills, however it appears to have been sent to [facility]. Patient given the phone number for [facility] to call when they open in the morning to follow up on this matter. Patient verbalized understanding and will check with pharmacy and will call Dr. Lawton clinic if any further assistance needed. Patient appreciative of information. [facility] History of Present illness Narrative* Alem Maynard, [employer] - 07/28/2024 2:00 PM EST OUTPATIENT FOLLOW UP 07/28/2024 Chief Complaint Patient presents with Chronic Myelogenous Leukemia HISTORY OF PRESENT ILLNESS Mr. Ovalles is a 62 y.o. 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 INTERVAL HISTORY: Frederic presents today for follow up. His biggest complaint today is neuropathy to his bilateral feet. Reports this started about a month ago. Worse when he is laying down. He otherwise has been doing well. Eating and drinking well. He is tolerating bosutinib well without any significant toxicities. He currently has no nausea, no vomiting, no diarrhea, no edema, no rash, no bleeding, no bruising, no fevers, and no fatigue. Medications Management: continue with Bosutinib. Labs Review: Labs reviewed. REVIEW OF SYSTEMS A complete review of systems was performed and all are negative except as previously stated in HPI. ONCOLOGY HISTORY/ ALLERGIES/ MEDICATIONS/ ALL REVIEWED Performance status: Karnofsky scale 80 (ECOG grade 1) Performs normal activity with effort; some signs & symptoms of disease PHYSICAL EXAM (LIMITED D/T NATURE OF VISIT) General: Ambulatory, conversational, no apparent distress. Vital signs: Reviewed and stable. Skin: Skin color, texture, turgor normal. No rashes or lesions. Eyes: PERRL, no scleral icterus or erythema Oropharynx: No erythema, exudates, or lesions. Moist mucous membranes. Hematologic/Lymphatic: No cervical, inguinal, axillary, or supraclavicular adenopathy. Respiratory: Clear to auscultation and percussion bilaterally posteriorly, no wheezes. Cardiovascular: Regular rate and rhythm, no murmurs, clicks, or gallops. No edema. Abdomen: Abdomen soft, non-tender. Normoactive bowel sounds. No masses or organomegaly. Extremities: No cyanosis, clubbing, or edema. No calf tenderness. Neurological: Decreased sensation to light touch on bottom of feet Back: tenderness to palpation around L4-L5 more on the right side Psych: alert and oriented x 3 ASSESSMENT AND PLAN Mr. Ovalles is a 64 y.o. male with a history of CML who presents today for follow up and evaluation. 1) CML. BCR/ABL from 07/30/23 is pending. Do not have his local BCR/ABL labs.Treatment switched to bosutinib due to SOB on dasatinib. He continues to follow with his local oncologist Dr. Jacques every 3 months. Next appointment is next week. qBCR-ABL (e13a2/b2a2) 03/30/2020 159.1086 08/10/2020 0.3342 11/10/2020 0.017 02/08/2021 0.031 05/09/2021 0.0626 08/09/2021 0.0559 11/08/2021 0.2603 12/12/2021 NEG 03/22/2022 0.056 06/20/2022 0.1436 07/10/22 NEG 07/30/23 0.0202 07/28/24 Pending Back Pain - resolved. - Previous imaging revealing of degenerative disc disease. No acute fractures. - He reports that he was found to have kidney stones. Surgically removed & pain has resolved since. Neuropathy. - Bilateral feet. Worsened over the past month. - Discussed starting on low-dose Gabapentin per pt preference. 300mg daily at bedtime script sent. He will call our clinic next week if he feels like his symptoms are not well controlled. No follow-ups on file. No orders of the defined types were placed in this encounter. Alem Maynard CNP documented in this encounterC[facility] Instructions* Patient Instructions* Nafisa Andrews RN - 07/28/2024 2:00 PM EST Results for orders placed or performed in visit on 07/28/24 COMPREHENSIVE METABOLIC PANEL Result Value Ref Range Sodium 137 135 - 145 mmol/L Potassium 3.9 3.5 - 5.0 mmol/L Chloride 104 98 - 108 mmol/L BUN 9 7 - 25 mg/dL Creatinine 0.97 0.70 - 1.30 mg/dL Glucose 117 (H) 70 - 99 mg/dL Bilirubin Total 0.4 <1.5 mg/dL Albumin 4.7 3.5 - 5.0 g/dL Total Protein 7.4 6.4 - 8.3 g/dL AST 21 10 - 39 U/L ALP 65 32 - 126 U/L Calcium 9.1 8.6 - 10.5 mg/dL CO2 28 21 - 31 mmol/L ALT 23 10 - 52 U/L Bun/Crea Ratio 9 Osmolality (Calculated) 287 278 - 305 mOsm/kg Anion Gap 9 7 - 17 mmol/L eGFR, CKD-EPI, Male 87 >=60 mL/min/1.73m2 CBC AND ELECTRONIC DIFF Result Value Ref Range WBC Count 7.33 3.73 - 10.10 K/uL RBC Count 5.18 4.38 - 5.83 M/uL Hemoglobin 15.0 13.4 - 16.8 g/dL Hematocrit 45.3 39.6 - 48.8 % Mean Cell Volume 87.5 79.0 - 94.5 fL Mean Cell Hgb 29.0 26.1 - 33.3 pg Mean Cell Hgb Conc 33.1 31.9 - 36.5 g/dL RBC Distribution 13.3 10.9 - 14.3 % Platelet Count 232 146 - 337 K/uL Mean Platelet Volume 10.5 8.7 - 12.3 fL DIFF STATUS Electronic Differential Segs + Bands Auto 61.9 % Immature Grans % 0.3 % Lymphocyte % Auto 21.6 % Monocyte % Auto 10.1 % Eosinophil % Auto 5.0 % Basophil % Auto 1.1 % Nucleated RBC 0.0 <=0.2 /100 WBC Segs + Bands,Absolute Auto 4.54 1.57 - 6.19 K/uL Immature Grans Absolute <0.04 <=0.07 K/uL Abs Lymph Auto 1.58 0.83 - 3.57 K/uL Abs [place]royo Auto 0.74 0.24 - 0.93 K/uL Abs Eos Auto 0.37 0.00 - 0.48 K/uL Abs Baso Auto 0.08 0.00 - 0.09 K/uL documented in this encounterU [facility] History of Present illness Narrative* Steven Miller RN - 07/30/2023 2:00 PM EST Chronic back pain worse in the last few months. Feet feel asleep a lot of the time. 5:43 PM called patient to provide central scheduling number to schedule mri [phone]. no answer, left voice mail with information. * Katelyn Lawton MD - 07/30/2023 2:00 PM EST OUTPATIENT FOLLOW UP 07/30/2023 Chief Complaint Patient presents with Chronic Myelogenous Leukemia HISTORY OF PRESENT ILLNESS Mr. Ovalles is a 62 y.o. 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 INTERVAL HISTORY: Overall, he is doing fine. His main complaint today is his back pain which had worsened over the past couple months. He is not taking any medication for the pain. He also report numbness on the bottoms of his feet that has occurred with worsening of his back pain. Otherwise, he is tolerating bosutinib well without any significant toxicities. He currently has no nausea, no vomiting, no diarrhea, no edema, no rash, no dyspnea, no bleeding, no bruising, no fevers, and no fatigue. Medications Management: continue with Bosutinib. Labs Review: Labs reviewed. REVIEW OF SYSTEMS A complete review of systems was performed and all are negative except as previously stated in HPI. ONCOLOGY HISTORY/ ALLERGIES/ MEDICATIONS/ ALL REVIEWED Performance status: Karnofsky scale 80 (ECOG grade 1) Performs normal activity with effort; some signs & symptoms of disease PHYSICAL EXAM (LIMITED D/T NATURE OF VISIT) General: Ambulatory, conversational, no apparent distress. Vital signs: Reviewed and stable. Skin: Skin color, texture, turgor normal. No rashes or lesions. Eyes: PERRL, no scleral icterus or erythema Oropharynx: No erythema, exudates, or lesions. Moist mucous membranes. Hematologic/Lymphatic: No cervical, inguinal, axillary, or supraclavicular adenopathy. Respiratory: Clear to auscultation and percussion bilaterally posteriorly, no wheezes. Cardiovascular: Regular rate and rhythm, no murmurs, clicks, or gallops. No edema. Abdomen: Abdomen soft, non-tender. Normoactive bowel sounds. No masses or organomegaly. Extremities: No cyanosis, clubbing, or edema. No calf tenderness. Neurological: Decreased sensation to light touch on bottom of feet Back: tenderness to palpation around L4-L5 more on the right side Psych: alert and oriented x 3 ASSESSMENT AND PLAN Mr. Ovalles is a 63 y.o. male with a history of CML who presents today for follow up and evaluation. 1) CML. BCR/ABL from 07/30/23 is pending. Do not have his local BCR/ABL labs.Treatment switched to bosutinib due to SOB on dasatinib. He continues to follow with his local oncologist Dr. Jacques. Have sent refill for bosutinib today for MAP. qBCR-ABL (e13a2/b2a2) 03/30/2020 159.1086 08/10/2020 0.3342 11/10/2020 0.017 02/08/2021 0.031 05/09/2021 0.0626 08/09/2021 0.0559 11/08/2021 0.2603 12/12/2021 NEG 03/22/2022 0.056 06/20/2022 0.1436 07/10/22 NEG 07/30/23 pending Back Pain Worsening. He is not taking any medication for the pain. - XR spine today showed multilevel degenerative disease and facet arthrosis - MRI spine ordered for further evaluation Return in about 1 year (around 07/30/2024) for Dr Lawton. Orders Placed This Encounter Procedures CBC, EDIF, PLATELET Every 12 weeks and PRN Standing Status: Standing Number of Occurrences: 12 Standing Expiration Date: 07/25/2024 COMPREHENSIVE METABOLIC PANEL Every 12 weeks and PRN Standing Status: Standing Number of Occurrences: 12 Standing Expiration Date: 07/25/2024 BCR/ABL BLOOD OR BONE MARROW,T(9;22),QUANT Standing Status: Standing Number of Occurrences: 99 Standing Expiration Date: 07/25/2024 CBC AND ELECTRONIC DIFF Every 12 weeks and PRN RNA EXTRACTION BCR/ABL, BLOOD OR BONE MARROW, FINAL Documented by Ros Pozo, for Dr. Katelyn Lawton on 07/30/2023 at 2:46 PM. All medical record entries made by the No[facility] were at my direction and personally dictated by me, Dr. Katelyn Lawton. I have reviewed the chart and agree that the record accurately reflects my personalperformance Documented by Ros Pozo, for Dr. Katelyn Lawton on 07/30/2023 at 2:46 PM. Katelyn Lawton MD, MSCR preform plate maker Division of Hematology [facility]* Patient Instructions* Steven Miller RN - 07/30/2023 2:00 PM EST Results for orders placed or performed in visit on 07/30/23 BCR/ABL BLOOD OR BONE MARROW,T(9;22),QUANT Result Value Ref Range Receiving Status Accessioned in Lab COMPREHENSIVE METABOLIC PANEL Result Value Ref Range Sodium 136 135 - 145 mmol/L Potassium 4.0 3.5 - 5.0 mmol/L Chloride 104 98 - 108 mmol/L BUN 11 7 - 25 mg/dL Creatinine 0.96 0.70 - 1.30 mg/dL Glucose 129 (H) 70 - 99 mg/dL Bilirubin Total 0.3 <1.5 mg/dL Albumin 4.6 3.5 - 5.0 g/dL Total Protein 7.6 6.4 - 8.3 g/dL AST 24 10 - 39 U/L ALP 70 32 - 126 U/L Calcium 9.4 8.6 - 10.5 mg/dL CO2 26 21 - 31 mmol/L ALT 26 10 - 52 U/L Bun/Crea Ratio 11 Osmolality (Calculated) 287 278 - 305 mOsm/kg Anion Gap 10 7 - 17 mmol/L eGFR, CKD-EPI, Male 89 >=60 mL/min/1.73m2 CBC AND ELECTRONIC DIFF Result Value Ref Range WBC Count 7.86 3.73 - 10.10 K/uL RBC Count 5.15 4.38 - 5.83 M/uL Hemoglobin 15.5 13.4 - 16.8 g/dL Hematocrit 45.1 39.6 - 48.8 % Mean Cell Volume 87.6 79.0 - 94.5 fL Mean Cell Hgb 30.1 26.1 - 33.3 pg Mean Cell Hgb Conc 34.4 31.9 - 36.5 g/dL RBC Distribution 13.5 10.9 - 14.3 % Platelet Count 257 146 - 337 K/uL Mean Platelet Volume 10.1 8.7 - 12.3 fL DIFF STATUS Electronic Differential Segs + Bands Auto 64.5 % Immature Grans % 0.1 % Lymphocyte % Auto 20.6 % Monocyte % Auto 9.3 % Eosinophil % Auto 4.7 % Basophil % Auto 0.8 % Nucleated RBC 0.0 <=0.2 /100 WBC Segs + Bands,Absolute Auto 5.07 1.57 - 6.19 K/uL Immature Grans Absolute <0.04 <=0.07 K/uL Abs Lymph Auto 1.62 0.83 - 3.57 K/uL Abs [place] Auto 0.73 0.24 - 0.93 K/uL Abs Eos Auto 0.37 0.00 - 0.48 K/uL Abs Baso Auto 0.06 0.00 - 0.09 K/uL [facility]01[facility]16[facility] Microscopic observation Gram stain Nom (Sput)Gram Stain Evaluation [facility] (Normal)Comments:This specimen is of good quality and is acceptable for routinebacterial culture. [facility]; [facility] Work Phone: comment on above:This specimen is of good quality and is acceptable for routinebacterial culture.PATIENT NOT FASTINGPERFORMED BY: CB [facility] [id number] [facility] [id number] Information: SRC:[id number] Evaluation note* Diagnosis Onset Date Resolution Status Chronic myeloid leukemia chr onic Essential (primary) hypertension chronic History of coronary artery stent placement January 20 017 resolved Encounter for education acut e Near syncope acute Chronic myeloid leukemia chr onic [facility]: Evaluation note* Diagnosis Onset Date Resolution Status Chronic myeloid leukemia chr onic Chronic myeloid leukemia chr onic Nicotine dependence, cigarettes, uncomplicated acute 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 acute SOB (shortness of breath) ac [place] Chronic myeloid leukemia chr onic Encounter for education acut e Chronic myeloid leukemia chr onic Chronic myeloid leukemia chr onic Encounter for education acut e Near syncope acute [facility]: Evaluation note* Diagnosis Onset Date Resolution Status Chronic myeloid leukemia chr onic Chronic myeloid leukemia chr onic Nicotine dependence, cigarettes, uncomplicated acute 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 acute SOB (shortness of breath) ac [place] Chronic myeloid leukemia chr onic Encounter for education acut e Chronic myeloid leukemia chr onic Chronic myeloid leukemia chr onic Encounter for education acut e Near syncope acute Chronic myeloid leukemia chr 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 Nicotine dependence, cigarettes, uncomplicated acute 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 [facility] Work Phone: Evaluation note* Diagnosis Onset Date Resolution Status Chronic myeloid leukemia chr onic Chronic myeloid leukemia chr onic Nicotine dependence, cigarettes, uncomplicated acute 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 acute SOB (shortness of breath) ac [place] Chronic myeloid leukemia chr onic Encounter for education acut e Chronic myeloid leukemia chr onic Chronic myeloid leukemia chr 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 Nicotine dependence, cigarettes, uncomplicated acute 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 acute Chronic myeloid leukemia chr onic Encounter for education acut e Near syncope acute [facility]: Evaluation note* Diagnosis Onset Date Resolution Status Chronic myeloid leukemia chr onic Chronic myeloid leukemia chr onic Nicotine dependence, cigarettes, uncomplicated acute 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 acute SOB (shortness of breath) ac [place] Chronic myeloid leukemia chr onic Encounter for education acut e Chronic myeloid leukemia chr onic Chronic myeloid leukemia chr 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 Nicotine dependence, cigarettes, uncomplicated acute 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 acute Chronic myeloid leukemia chr onic Chronic myeloid leukemia chr onic 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, 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 Chronic myeloid leukemia chr onic Encounter for education acut e Near syncope acute Chronic myeloid leukemia chr onic [facility] Work Phone: Evaluation note* Diagnosis Onset Date Resolution Status Bilateral pleural effusion c hronic Chronic myeloid leukemia chr onic Nicotine dependence, cigarettes, uncomplicated acute 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 acute SOB (shortness of breath) ac [place] Bilateral pleural effusion c hronic Chronic myeloid leukemia chr onic Encounter for education acut e Chronic myeloid leukemia chr onic Bilateral pleural effusion c hronic Chronic myeloid leukemia chr onic Mixed obstructive and restri ctive ventilatory defect acute Nicotine dependence, cigarettes, uncomplicated acute 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 acute Bilateral pleural effusion c hronic Chronic myeloid leukemia chr onic Bilateral pleural effusion c hronic Chronic myeloid leukemia chr onic 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, 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 Bilateral pleural effusion c hronic Chronic myeloid leukemia chr onic Chronic myeloid leukemia chr onic 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, 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 Chronic myeloid leukemia chr onic 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, 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 Encounter for education acut e Near syncope acute Chronic myeloid leukemia chr onic Chronic myeloid leukemia chr onic Essential (primary) hypertension chronic History of coronary artery stent placement January 20 resolved [facility] Work Phone: Evaluation note* Diagnosis Onset Date Resolution Status Bilateral pleural effusion c hronic Chronic myeloid leukemia chr onic Nicotine dependence, cigarettes, uncomplicated acute 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 acute SOB (shortness of breath) ac [place] Bilateral pleural effusion c hronic Chronic myeloid leukemia chr onic Encounter for education acut e Chronic myeloid leukemia chr onic Bilateral pleural effusion c hronic Chronic myeloid leukemia chr onic Mixed obstructive and restri ctive ventilatory defect acute Nicotine dependence, cigarettes, uncomplicated acute 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 acute Bilateral pleural effusion c hronic Chronic myeloid leukemia chr onic Bilateral pleural effusion c hronic Chronic myeloid leukemia chr onic 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, 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 Bilateral pleural effusion c hronic Chronic myeloid leukemia chr onic Chronic myeloid leukemia chr onic 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, 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 Chronic myeloid leukemia chr onic 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, 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 Chronic myeloid leukemia chr onic Essential (primary) hypertension chronic History of coronary artery stent placement January 20 017 resolved Chronic myeloid leukemia chr onic 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, 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 Encounter for education acut e Near syncope acute Chronic myeloid leukemia chr onic Mixed obstructive and restri ctive ventilatory defect acute Nicotine dependence, cigarettes, uncomplicated acute Bilateral pleural effusion c hronic [facility] Work Phone: Evaluation note* Diagnosis Onset Date Resolution Status Encounter for education acut e Near syncope acute Chronic myeloid leukemia chr onic Chronic myeloid leukemia chr onic Essential (primary) hypertension chronic History of coronary artery stent placement January 20 017 resolved Chronic myeloid leukemia chr onic [facility] Work Phone: Evaluation note* Diagnosis Acute midline low back pain with bilateral sciatica [facility] Diagnosis CML (chronic myeloid leukemia)- Primary Chronic myeloid leukemia, without mention of having achieved remission Acute midline low back pain with bilateral sciatica Lumbar radiculopathy Thoracic or lumbosacral neuritis or radiculitis, unspecified [facility] Diagnosis Onset Date Resolution Status Chronic myeloid leukemia chr onic Encounter for education acut e Near syncope acute Chronic myeloid leukemia chr onic [facility] Work Phone: Evaluation note* Diagnosis CML (chronic myeloid leukemia)- Primary Chronic myeloid leukemia, without mention of having achieved remission [facility] Additional Instructions May also consider using topical pain reliever such as Biofreeze, Bengay, Sportscreme, IcyHot, etc. to your left flank/side.[facility] Work Phone: Instructions* Name Dates Details How to access health informa tion online Indication:Smoker Start:02-May-2020 Instruction Type:Patient Education How to access health informa tion online - Detail Indication:Smoker Start:02-May-2020 Instruction Type:Patient Education Patient Instructions Indication:Smoker Start:02-May-2020 Instruction Type:Provider Instructions for Treatment How to access health informa tion online Indication:BMI 33.0-33.9,adult Start:25-Apr-2020 Instruction Type:Patient Education How to access health informa tion online - Detail Indication:BMI 33.0-33.9,adult Start:25-Apr-2020 Instruction Type:Patient Education Patient Instructions Indication:BMI 33.0-33.9,adult Start:25-Apr-2020 Instruction Type:Provider Instructions for Treatment How to access health informa tion online Indication:BMI 32.0-32.9,adult Start:01-Feb-2020 Instruction Type:Patient Education How to access health informa tion online - Detail Indication:BMI 32.0-32.9,adult Start:01-Feb-2020 Instruction Type:Patient Education Patient Instructions Indication:BMI 32.0-32.9,adult Start:01-Feb-2020 Instruction Type:Provider Instructions for Treatment How to access health informa tion online Indication:BMI 33.0-33.9,adult Start:11-Jan-2020 Instruction Type:Patient Education How to access health informa tion online - Detail Indication:BMI 33.0-33.9,adult Start:11-Jan-2020 Instruction Type:Patient Education Patient Instructions Indication:BMI 33.0-33.9,adult Start:11-Jan-2020 Instruction Type:Provider Instructions for Treatment How to access health informa tion online Indication:BMI 34.0-34.9,adult Start:24-Dec-2019 Instruction Type:Patient Education How to access health informa tion online - Detail Indication:BMI 34.0-34.9,adult Start:24-Dec-2019 Instruction Type:Patient Education Patient Instructions Indication:BMI 34.0-34.9,adult Start:24-Dec-2019 Instruction Type:Provider Instructions for Treatment How to access health informa tion online Indication:BMI 31.0-31.9,adult Start:13-Apr-2019 Instruction Type:Patient Education How to access health informa tion online - Detail Indication:BMI 31.0-31.9,adult Start:13-Apr-2019 Instruction Type:Patient Education Patient Instructions Indication:BMI 31.0-31.9,adult Start:13-Apr-2019 Instruction Type:Provider Instructions for Treatment How to access health informa tion online Indication:Non-smoker Start:12-Jan-2019 Instruction Type:Patient Education How to access health informa tion online - Detail Indication:Non-smoker Start:12-Jan-2019 Instruction Type:Patient Education Patient Instructions Indication:Non-smoker Start:12-Jan-2019 Instruction Type:Provider Instructions for Treatment How to access health informa tion online Indication:Non-smoker Start:22-Dec-2018 Instruction Type:Patient Education How to access health informa tion online - Detail Indication:Non-smoker Start:22-Dec-2018 Instruction Type:Patient Education Patient Instructions Indication:Non-smoker Start:22-Dec-2018 Instruction Type:Provider Instructions for Treatment How to access health informa tion online Indication:Smoker Start:08-Dec-2018 Instruction Type:Patient Education How to access health informa tion online - Detail Indication:Smoker Start:08-Dec-2018 Instruction Type:Patient Education Patient Instructions Indication:Smoker Start:08-Dec-2018 Instruction Type:Provider Instructions for Treatment How to access health informa tion online Indication:BMI 30.0-30.9,adult Start:01-Dec-2018 Instruction Type:Patient Education How to access health informa tion online - Detail Indication:BMI 30.0-30.9,adult Start:01-Dec-2018 Instruction Type:Patient Education Patient Instructions Indication:BMI 30.0-30.9,adult Start:01-Dec-2018 Instruction Type:Provider Instructions for Treatment How to access health informa tion online Indication:Smoker Start:31-Oct-2018 Instruction Type:Patient Education How to access health informa tion online - Detail Indication:Smoker Start:31-Oct-2018 Instruction Type:Patient Education Patient Instructions Indication:Smoker Start:31-Oct-2018 Instruction Type:Provider Instructions for Treatment How to access health informa tion online Indication:BMI 34.0-34.9,adult Start:28-Oct-2018 Instruction Type:Patient Education How to access health informa tion online - Detail Indication:BMI 34.0-34.9,adult Start:28-Oct-2018 Instruction Type:Patient Education Patient Instructions Indication:BMI 34.0-34.9,adult Start:28-Oct-2018 Instruction Type:Provider Instructions for Treatment How to access health informa tion online Indication:Smoker Start:11-Sep-2018 Instruction Type:Patient Education How to access health informa tion online - Detail Indication:Smoker Start:11-Sep-2018 Instruction Type:Patient Education Patient Instructions Indication:Smoker Start:11-Sep-2018 Instruction Type:Provider Instructions for Treatment How to access health informa tion online Indication:CAD, multiple vessel Start:26-Aug-2018 Instruction Type:Patient Education How to access health informa tion online - Detail Indication:CAD, multiple vessel Start:26-Aug-2018 Instruction Type:Patient Education [facility]; [facility] Work Phone: Instructions* Name Dates Details Patient Instructions Indication:Smoker Start:21-Dec-2020 Instruction Type:Provider Instructions for Treatment How to Access Health Informa tion Online using Patient Portal and 3rd [employer] Apps Indication:Smoker Start:21-Dec-2020 Instruction Type:Patient Education How to access health informa tion online Indication:Smoker Start:02-May-2020 Instruction Type:Patient Education How to access health informa tion online - Detail Indication:Smoker Start:02-May-2020 Instruction Type:Patient Education Patient Instructions Indication:Smoker Start:02-May-2020 Instruction Type:Provider Instructions for Treatment How to access health informa tion online Indication:BMI 33.0-33.9,adult Start:25-Apr-2020 Instruction Type:Patient Education How to access health informa tion online - Detail Indication:BMI 33.0-33.9,adult Start:25-Apr-2020 Instruction Type:Patient Education Patient Instructions Indication:BMI 33.0-33.9,adult Start:25-Apr-2020 Instruction Type:Provider Instructions for Treatment How to access health informa tion online Indication:BMI 32.0-32.9,adult Start:01-Feb-2020 Instruction Type:Patient Education How to access health informa tion online - Detail Indication:BMI 32.0-32.9,adult Start:01-Feb-2020 Instruction Type:Patient Education Patient Instructions Indication:BMI 32.0-32.9,adult Start:01-Feb-2020 Instruction Type:Provider Instructions for Treatment How to access health informa tion online Indication:BMI 33.0-33.9,adult Start:11-Jan-2020 Instruction Type:Patient Education How to access health informa tion online - Detail Indication:BMI 33.0-33.9,adult Start:11-Jan-2020 Instruction Type:Patient Education Patient Instructions Indication:BMI 33.0-33.9,adult Start:11-Jan-2020 Instruction Type:Provider Instructions for Treatment How to access health informa tion online Indication:BMI 34.0-34.9,adult Start:24-Dec-2019 Instruction Type:Patient Education How to access health informa tion online - Detail Indication:BMI 34.0-34.9,adult Start:24-Dec-2019 Instruction Type:Patient Education Patient Instructions Indication:BMI 34.0-34.9,adult Start:24-Dec-2019 Instruction Type:Provider Instructions for Treatment How to access health informa tion online Indication:BMI 31.0-31.9,adult Start:13-Apr-2019 Instruction Type:Patient Education How to access health informa tion online - Detail Indication:BMI 31.0-31.9,adult Start:13-Apr-2019 Instruction Type:Patient Education Patient Instructions Indication:BMI 31.0-31.9,adult Start:13-Apr-2019 Instruction Type:Provider Instructions for Treatment How to access health informa tion online Indication:Non-smoker Start:12-Jan-2019 Instruction Type:Patient Education How to access health informa tion online - Detail Indication:Non-smoker Start:12-Jan-2019 Instruction Type:Patient Education Patient Instructions Indication:Non-smoker Start:12-Jan-2019 Instruction Type:Provider Instructions for Treatment How to access health informa tion online Indication:Non-smoker Start:22-Dec-2018 Instruction Type:Patient Education How to access health informa tion online - Detail Indication:Non-smoker Start:22-Dec-2018 Instruction Type:Patient Education Patient Instructions Indication:Non-smoker Start:22-Dec-2018 Instruction Type:Provider Instructions for Treatment How to access health informa tion online Indication:Smoker Start:08-Dec-2018 Instruction Type:Patient Education How to access health informa tion online - Detail Indication:Smoker Start:08-Dec-2018 Instruction Type:Patient Education Patient Instructions Indication:Smoker Start:08-Dec-2018 Instruction Type:Provider Instructions for Treatment How to access health informa tion online Indication:BMI 30.0-30.9,adult Start:01-Dec-2018 Instruction Type:Patient Education How to access health informa tion online - Detail Indication:BMI 30.0-30.9,adult Start:01-Dec-2018 Instruction Type:Patient Education Patient Instructions Indication:BMI 30.0-30.9,adult Start:01-Dec-2018 Instruction Type:Provider Instructions for Treatment How to access health informa tion online Indication:Smoker Start:31-Oct-2018 Instruction Type:Patient Education How to access health informa tion online - Detail Indication:Smoker Start:31-Oct-2018 Instruction Type:Patient Education Patient Instructions Indication:Smoker Start:31-Oct-2018 Instruction Type:Provider Instructions for Treatment How to access health informa tion online Indication:BMI 34.0-34.9,adult Start:28-Oct-2018 Instruction Type:Patient Education How to access health informa tion online - Detail Indication:BMI 34.0-34.9,adult Start:28-Oct-2018 Instruction Type:Patient Education Patient Instructions Indication:BMI 34.0-34.9,adult Start:28-Oct-2018 Instruction Type:Provider Instructions for Treatment How to access health informa tion online Indication:Smoker Start:11-Sep-2018 Instruction Type:Patient Education How to access health informa tion online - Detail Indication:Smoker Start:11-Sep-2018 Instruction Type:Patient Education Patient Instructions Indication:Smoker Start:11-Sep-2018 Instruction Type:Provider Instructions for Treatment How to access health informa tion online Indication:CAD, multiple vessel Start:26-Aug-2018 Instruction Type:Patient Education How to access health informa tion online - Detail Indication:CAD, multiple vessel Start:26-Aug-2018 Instruction Type:Patient Education [facility]; [facility] Work Phone: Instructions* Name Dates Details Patient Instructions Indication:Smoker Start:21-Dec-2020 Instruction Type:Provider Instructions for Treatment How to Access Health Informa tion Online using Patient Portal and 3rd [employer] Apps Indication:Smoker Start:21-Dec-2020 Instruction Type:Patient Education How to access health informa tion online Indication:Smoker Start:02-May-2020 Instruction Type:Patient Education How to access health informa tion online - Detail Indication:Smoker Start:02-May-2020 Instruction Type:Patient Education Patient Instructions Indication:Smoker Start:02-May-2020 Instruction Type:Provider Instructions for Treatment How to access health informa tion online Indication:BMI 33.0-33.9,adult Start:25-Apr-2020 Instruction Type:Patient Education How to access health informa tion online - Detail Indication:BMI 33.0-33.9,adult Start:25-Apr-2020 Instruction Type:Patient Education Patient Instructions Indication:BMI 33.0-33.9,adult Start:25-Apr-2020 Instruction Type:Provider Instructions for Treatment How to access health informa tion online Indication:BMI 32.0-32.9,adult Start:01-Feb-2020 Instruction Type:Patient Education How to access health informa tion online - Detail Indication:BMI 32.0-32.9,adult Start:01-Feb-2020 Instruction Type:Patient Education Patient Instructions Indication:BMI 32.0-32.9,adult Start:01-Feb-2020 Instruction Type:Provider Instructions for Treatment How to access health informa tion online Indication:BMI 33.0-33.9,adult Start:11-Jan-2020 Instruction Type:Patient Education How to access health informa tion online - Detail Indication:BMI 33.0-33.9,adult Start:11-Jan-2020 Instruction Type:Patient Education Patient Instructions Indication:BMI 33.0-33.9,adult Start:11-Jan-2020 Instruction Type:Provider Instructions for Treatment How to access health informa tion online Indication:BMI 34.0-34.9,adult Start:24-Dec-2019 Instruction Type:Patient Education How to access health informa tion online - Detail Indication:BMI 34.0-34.9,adult Start:24-Dec-2019 Instruction Type:Patient Education Patient Instructions Indication:BMI 34.0-34.9,adult Start:24-Dec-2019 Instruction Type:Provider Instructions for Treatment How to access health informa tion online Indication:BMI 31.0-31.9,adult Start:13-Apr-2019 Instruction Type:Patient Education How to access health informa tion online - Detail Indication:BMI 31.0-31.9,adult Start:13-Apr-2019 Instruction Type:Patient Education Patient Instructions Indication:BMI 31.0-31.9,adult Start:13-Apr-2019 Instruction Type:Provider Instructions for Treatment How to access health informa tion online Indication:Non-smoker Start:12-Jan-2019 Instruction Type:Patient Education How to access health informa tion online - Detail Indication:Non-smoker Start:12-Jan-2019 Instruction Type:Patient Education Patient Instructions Indication:Non-smoker Start:12-Jan-2019 Instruction Type:Provider Instructions for Treatment How to access health informa tion online Indication:Non-smoker Start:22-Dec-2018 Instruction Type:Patient Education How to access health informa tion online - Detail Indication:Non-smoker Start:22-Dec-2018 Instruction Type:Patient Education Patient Instructions Indication:Non-smoker Start:22-Dec-2018 Instruction Type:Provider Instructions for Treatment How to access health informa tion online Indication:Smoker Start:08-Dec-2018 Instruction Type:Patient Education How to access health informa tion online - Detail Indication:Smoker Start:08-Dec-2018 Instruction Type:Patient Education Patient Instructions Indication:Smoker Start:08-Dec-2018 Instruction Type:Provider Instructions for Treatment How to access health informa tion online Indication:BMI 30.0-30.9,adult Start:01-Dec-2018 Instruction Type:Patient Education How to access health informa tion online - Detail Indication:BMI 30.0-30.9,adult Start:01-Dec-2018 Instruction Type:Patient Education Patient Instructions Indication:BMI 30.0-30.9,adult Start:01-Dec-2018 Instruction Type:Provider Instructions for Treatment How to access health informa tion online Indication:Smoker Start:31-Oct-2018 Instruction Type:Patient Education How to access health informa tion online - Detail Indication:Smoker Start:31-Oct-2018 Instruction Type:Patient Education Patient Instructions Indication:Smoker Start:31-Oct-2018 Instruction Type:Provider Instructions for Treatment How to access health informa tion online Indication:BMI 34.0-34.9,adult Start:28-Oct-2018 Instruction Type:Patient Education How to access health informa tion online - Detail Indication:BMI 34.0-34.9,adult Start:28-Oct-2018 Instruction Type:Patient Education Patient Instructions Indication:BMI 34.0-34.9,adult Start:28-Oct-2018 Instruction Type:Provider Instructions for Treatment How to access health informa tion online Indication:Smoker Start:11-Sep-2018 Instruction Type:Patient Education How to access health informa tion online - Detail Indication:Smoker Start:11-Sep-2018 Instruction Type:Patient Education Patient Instructions Indication:Smoker Start:11-Sep-2018 Instruction Type:Provider Instructions for Treatment How to access health informa tion online Indication:CAD, multiple vessel Start:26-Aug-2018 Instruction Type:Patient Education How to access health informa tion online - Detail Indication:CAD, multiple vessel Start:26-Aug-2018 Instruction Type:Patient Education [facility]; [facility] Work Phone: Instructions* Name Dates Details Patient Instructions Indication:Smoker Start:26-Jun-2021 Instruction Type:Provider Instructions for Treatment How to Access Health Informa tion Online using Patient Portal and [employer]rd [employer] Apps Indication:Smoker Start:26-Jun-2021 Instruction Type:Patient Education Patient Instructions Indication:Smoker Start:21-Dec-2020 Instruction Type:Provider Instructions for Treatment How to Access Health Informa tion Online using Patient Portal and [employer]rd [employer] Apps Indication:Smoker Start:21-Dec-2020 Instruction Type:Patient Education How to access health informa tion online Indication:Smoker Start:02-May-2020 Instruction Type:Patient Education How to access health informa tion online - Detail Indication:Smoker Start:02-May-2020 Instruction Type:Patient Education Patient Instructions Indication:Smoker Start:02-May-2020 Instruction Type:Provider Instructions for Treatment How to access health informa tion online Indication:BMI 33.0-33.9,adult Start:25-Apr-2020 Instruction Type:Patient Education How to access health informa tion online - Detail Indication:BMI 33.0-33.9,adult Start:25-Apr-2020 Instruction Type:Patient Education Patient Instructions Indication:BMI 33.0-33.9,adult Start:25-Apr-2020 Instruction Type:Provider Instructions for Treatment How to access health informa tion online Indication:BMI 32.0-32.9,adult Start:01-Feb-2020 Instruction Type:Patient Education How to access health informa tion online - Detail Indication:BMI 32.0-32.9,adult Start:01-Feb-2020 Instruction Type:Patient Education Patient Instructions Indication:BMI 32.0-32.9,adult Start:01-Feb-2020 Instruction Type:Provider Instructions for Treatment How to access health informa tion online Indication:BMI 33.0-33.9,adult Start:11-Jan-2020 Instruction Type:Patient Education How to access health informa tion online - Detail Indication:BMI 33.0-33.9,adult Start:11-Jan-2020 Instruction Type:Patient Education Patient Instructions Indication:BMI 33.0-33.9,adult Start:11-Jan-2020 Instruction Type:Provider Instructions for Treatment How to access health informa tion online Indication:BMI 34.0-34.9,adult Start:24-Dec-2019 Instruction Type:Patient Education How to access health informa tion online - Detail Indication:BMI 34.0-34.9,adult Start:24-Dec-2019 Instruction Type:Patient Education Patient Instructions Indication:BMI 34.0-34.9,adult Start:24-Dec-2019 Instruction Type:Provider Instructions for Treatment How to access health informa tion online Indication:BMI 31.0-31.9,adult Start:13-Apr-2019 Instruction Type:Patient Education How to access health informa tion online - Detail Indication:BMI 31.0-31.9,adult Start:13-Apr-2019 Instruction Type:Patient Education Patient Instructions Indication:BMI 31.0-31.9,adult Start:13-Apr-2019 Instruction Type:Provider Instructions for Treatment How to access health informa tion online Indication:Non-smoker Start:12-Jan-2019 Instruction Type:Patient Education How to access health informa tion online - Detail Indication:Non-smoker Start:12-Jan-2019 Instruction Type:Patient Education Patient Instructions Indication:Non-smoker Start:12-Jan-2019 Instruction Type:Provider Instructions for Treatment How to access health informa tion online Indication:Non-smoker Start:22-Dec-2018 Instruction Type:Patient Education How to access health informa tion online - Detail Indication:Non-smoker Start:22-Dec-2018 Instruction Type:Patient Education Patient Instructions Indication:Non-smoker Start:22-Dec-2018 Instruction Type:Provider Instructions for Treatment How to access health informa tion online Indication:Smoker Start:08-Dec-2018 Instruction Type:Patient Education How to access health informa tion online - Detail Indication:Smoker Start:08-Dec-2018 Instruction Type:Patient Education Patient Instructions Indication:Smoker Start:08-Dec-2018 Instruction Type:Provider Instructions for Treatment How to access health informa tion online Indication:BMI 30.0-30.9,adult Start:01-Dec-2018 Instruction Type:Patient Education How to access health informa tion online - Detail Indication:BMI 30.0-30.9,adult Start:01-Dec-2018 Instruction Type:Patient Education Patient Instructions Indication:BMI 30.0-30.9,adult Start:01-Dec-2018 Instruction Type:Provider Instructions for Treatment How to access health informa tion online Indication:Smoker Start:31-Oct-2018 Instruction Type:Patient Education How to access health informa tion online - Detail Indication:Smoker Start:31-Oct-2018 Instruction Type:Patient Education Patient Instructions Indication:Smoker Start:31-Oct-2018 Instruction Type:Provider Instructions for Treatment How to access health informa tion online Indication:BMI 34.0-34.9,adult Start:28-Oct-2018 Instruction Type:Patient Education How to access health informa tion online - Detail Indication:BMI 34.0-34.9,adult Start:28-Oct-2018 Instruction Type:Patient Education Patient Instructions Indication:BMI 34.0-34.9,adult Start:28-Oct-2018 Instruction Type:Provider Instructions for Treatment How to access health informa tion online Indication:Smoker Start:11-Sep-2018 Instruction Type:Patient Education How to access health informa tion online - Detail Indication:Smoker Start:11-Sep-2018 Instruction Type:Patient Education Patient Instructions Indication:Smoker Start:11-Sep-2018 Instruction Type:Provider Instructions for Treatment How to access health informa tion online Indication:CAD, multiple vessel Start:26-Aug-2018 Instruction Type:Patient Education How to access health informa tion online - Detail Indication:CAD, multiple vessel Start:26-Aug-2018 Instruction Type:Patient Education [facility]; [facility] Work Phone: Instructions* Name Dates Details Patient Instructions Indication:Smoker Start:26-Jun-2021 Instruction Type:Provider Instructions for Treatment How to Access Health Informa tion Online using Patient Portal and [employer]rd [employer] Apps Indication:Smoker Start:26-Jun-2021 Instruction Type:Patient Education Patient Instructions Indication:Smoker Start:21-Dec-2020 Instruction Type:Provider Instructions for Treatment How to Access Health Informa tion Online using Patient Portal and [employer]rd [employer] Apps Indication:Smoker Start:21-Dec-2020 Instruction Type:Patient Education How to access health informa tion online Indication:Smoker Start:02-May-2020 Instruction Type:Patient Education How to access health informa tion online - Detail Indication:Smoker Start:02-May-2020 Instruction Type:Patient Education Patient Instructions Indication:Smoker Start:02-May-2020 Instruction Type:Provider Instructions for Treatment How to access health informa tion online Indication:BMI 33.0-33.9,adult Start:25-Apr-2020 Instruction Type:Patient Education How to access health informa tion online - Detail Indication:BMI 33.0-33.9,adult Start:25-Apr-2020 Instruction Type:Patient Education Patient Instructions Indication:BMI 33.0-33.9,adult Start:25-Apr-2020 Instruction Type:Provider Instructions for Treatment How to access health informa tion online Indication:BMI 32.0-32.9,adult Start:01-Feb-2020 Instruction Type:Patient Education How to access health informa tion online - Detail Indication:BMI 32.0-32.9,adult Start:01-Feb-2020 Instruction Type:Patient Education Patient Instructions Indication:BMI 32.0-32.9,adult Start:01-Feb-2020 Instruction Type:Provider Instructions for Treatment How to access health informa tion online Indication:BMI 33.0-33.9,adult Start:11-Jan-2020 Instruction Type:Patient Education How to access health informa tion online - Detail Indication:BMI 33.0-33.9,adult Start:11-Jan-2020 Instruction Type:Patient Education Patient Instructions Indication:BMI 33.0-33.9,adult Start:11-Jan-2020 Instruction Type:Provider Instructions for Treatment How to access health informa tion online Indication:BMI 34.0-34.9,adult Start:24-Dec-2019 Instruction Type:Patient Education How to access health informa tion online - Detail Indication:BMI 34.0-34.9,adult Start:24-Dec-2019 Instruction Type:Patient Education Patient Instructions Indication:BMI 34.0-34.9,adult Start:24-Dec-2019 Instruction Type:Provider Instructions for Treatment How to access health informa tion online Indication:BMI 31.0-31.9,adult Start:13-Apr-2019 Instruction Type:Patient Education How to access health informa tion online - Detail Indication:BMI 31.0-31.9,adult Start:13-Apr-2019 Instruction Type:Patient Education Patient Instructions Indication:BMI 31.0-31.9,adult Start:13-Apr-2019 Instruction Type:Provider Instructions for Treatment How to access health informa tion online Indication:Non-smoker Start:12-Jan-2019 Instruction Type:Patient Education How to access health informa tion online - Detail Indication:Non-smoker Start:12-Jan-2019 Instruction Type:Patient Education Patient Instructions Indication:Non-smoker Start:12-Jan-2019 Instruction Type:Provider Instructions for Treatment How to access health informa tion online Indication:Non-smoker Start:22-Dec-2018 Instruction Type:Patient Education How to access health informa tion online - Detail Indication:Non-smoker Start:22-Dec-2018 Instruction Type:Patient Education Patient Instructions Indication:Non-smoker Start:22-Dec-2018 Instruction Type:Provider Instructions for Treatment How to access health informa tion online Indication:Smoker Start:08-Dec-2018 Instruction Type:Patient Education How to access health informa tion online - Detail Indication:Smoker Start:08-Dec-2018 Instruction Type:Patient Education Patient Instructions Indication:Smoker Start:08-Dec-2018 Instruction Type:Provider Instructions for Treatment How to access health informa tion online Indication:BMI 30.0-30.9,adult Start:01-Dec-2018 Instruction Type:Patient Education How to access health informa tion online - Detail Indication:BMI 30.0-30.9,adult Start:01-Dec-2018 Instruction Type:Patient Education Patient Instructions Indication:BMI 30.0-30.9,adult Start:01-Dec-2018 Instruction Type:Provider Instructions for Treatment How to access health informa tion online Indication:Smoker Start:31-Oct-2018 Instruction Type:Patient Education How to access health informa tion online - Detail Indication:Smoker Start:31-Oct-2018 Instruction Type:Patient Education Patient Instructions Indication:Smoker Start:31-Oct-2018 Instruction Type:Provider Instructions for Treatment How to access health informa tion online Indication:BMI 34.0-34.9,adult Start:28-Oct-2018 Instruction Type:Patient Education How to access health informa tion online - Detail Indication:BMI 34.0-34.9,adult Start:28-Oct-2018 Instruction Type:Patient Education Patient Instructions Indication:BMI 34.0-34.9,adult Start:28-Oct-2018 Instruction Type:Provider Instructions for Treatment How to access health informa tion online Indication:Smoker Start:11-Sep-2018 Instruction Type:Patient Education How to access health informa tion online - Detail Indication:Smoker Start:11-Sep-2018 Instruction Type:Patient Education Patient Instructions Indication:Smoker Start:11-Sep-2018 Instruction Type:Provider Instructions for Treatment How to access health informa tion online Indication:CAD, multiple vessel Start:26-Aug-2018 Instruction Type:Patient Education How to access health informa tion online - Detail Indication:CAD, multiple vessel Start:26-Aug-2018 Instruction Type:Patient Education [facility]; [facility] Work Phone: Instructions* Name Dates Details Patient Instructions Indication:Smoker Start:30-Oct-2021 Instruction Type:Provider Instructions for Treatment How to Access Health Informa tion Online using Patient Portal and [employer]rd [employer] Apps Indication:Smoker Start:30-Oct-2021 Instruction Type:Patient Education Patient Instructions Indication:Smoker Start:26-Jun-2021 Instruction Type:Provider Instructions for Treatment How to Access Health Informa tion Online using Patient Portal and [employer]rd [employer] Apps Indication:Smoker Start:26-Jun-2021 Instruction Type:Patient Education Patient Instructions Indication:Smoker Start:21-Dec-2020 Instruction Type:Provider Instructions for Treatment How to Access Health Informa tion Online using Patient Portal and [employer]rd [employer] Apps Indication:Smoker Start:21-Dec-2020 Instruction Type:Patient Education How to access health informa tion online Indication:Smoker Start:02-May-2020 Instruction Type:Patient Education How to access health informa tion online - Detail Indication:Smoker Start:02-May-2020 Instruction Type:Patient Education Patient Instructions Indication:Smoker Start:02-May-2020 Instruction Type:Provider Instructions for Treatment How to access health informa tion online Indication:BMI 33.0-33.9,adult Start:25-Apr-2020 Instruction Type:Patient Education How to access health informa tion online - Detail Indication:BMI 33.0-33.9,adult Start:25-Apr-2020 Instruction Type:Patient Education Patient Instructions Indication:BMI 33.0-33.9,adult Start:25-Apr-2020 Instruction Type:Provider Instructions for Treatment How to access health informa tion online Indication:BMI 32.0-32.9,adult Start:01-Feb-2020 Instruction Type:Patient Education How to access health informa tion online - Detail Indication:BMI 32.0-32.9,adult Start:01-Feb-2020 Instruction Type:Patient Education Patient Instructions Indication:BMI 32.0-32.9,adult Start:01-Feb-2020 Instruction Type:Provider Instructions for Treatment How to access health informa tion online Indication:BMI 33.0-33.9,adult Start:11-Jan-2020 Instruction Type:Patient Education How to access health informa tion online - Detail Indication:BMI 33.0-33.9,adult Start:11-Jan-2020 Instruction Type:Patient Education Patient Instructions Indication:BMI 33.0-33.9,adult Start:11-Jan-2020 Instruction Type:Provider Instructions for Treatment How to access health informa tion online Indication:BMI 34.0-34.9,adult Start:24-Dec-2019 Instruction Type:Patient Education How to access health informa tion online - Detail Indication:BMI 34.0-34.9,adult Start:24-Dec-2019 Instruction Type:Patient Education Patient Instructions Indication:BMI 34.0-34.9,adult Start:24-Dec-2019 Instruction Type:Provider Instructions for Treatment How to access health informa tion online Indication:BMI 31.0-31.9,adult Start:13-Apr-2019 Instruction Type:Patient Education How to access health informa tion online - Detail Indication:BMI 31.0-31.9,adult Start:13-Apr-2019 Instruction Type:Patient Education Patient Instructions Indication:BMI 31.0-31.9,adult Start:13-Apr-2019 Instruction Type:Provider Instructions for Treatment How to access health informa tion online Indication:Non-smoker Start:12-Jan-2019 Instruction Type:Patient Education How to access health informa tion online - Detail Indication:Non-smoker Start:12-Jan-2019 Instruction Type:Patient Education Patient Instructions Indication:Non-smoker Start:12-Jan-2019 Instruction Type:Provider Instructions for Treatment How to access health informa tion online Indication:Non-smoker Start:22-Dec-2018 Instruction Type:Patient Education How to access health informa tion online - Detail Indication:Non-smoker Start:22-Dec-2018 Instruction Type:Patient Education Patient Instructions Indication:Non-smoker Start:22-Dec-2018 Instruction Type:Provider Instructions for Treatment How to access health informa tion online Indication:Smoker Start:08-Dec-2018 Instruction Type:Patient Education How to access health informa tion online - Detail Indication:Smoker Start:08-Dec-2018 Instruction Type:Patient Education Patient Instructions Indication:Smoker Start:08-Dec-2018 Instruction Type:Provider Instructions for Treatment How to access health informa tion online Indication:BMI 30.0-30.9,adult Start:01-Dec-2018 Instruction Type:Patient Education How to access health informa tion online - Detail Indication:BMI 30.0-30.9,adult Start:01-Dec-2018 Instruction Type:Patient Education Patient Instructions Indication:BMI 30.0-30.9,adult Start:01-Dec-2018 Instruction Type:Provider Instructions for Treatment How to access health informa tion online Indication:Smoker Start:31-Oct-2018 Instruction Type:Patient Education How to access health informa tion online - Detail Indication:Smoker Start:31-Oct-2018 Instruction Type:Patient Education Patient Instructions Indication:Smoker Start:31-Oct-2018 Instruction Type:Provider Instructions for Treatment How to access health informa tion online Indication:BMI 34.0-34.9,adult Start:28-Oct-2018 Instruction Type:Patient Education How to access health informa tion online - Detail Indication:BMI 34.0-34.9,adult Start:28-Oct-2018 Instruction Type:Patient Education Patient Instructions Indication:BMI 34.0-34.9,adult Start:28-Oct-2018 Instruction Type:Provider Instructions for Treatment How to access health informa tion online Indication:Smoker Start:11-Sep-2018 Instruction Type:Patient Education How to access health informa tion online - Detail Indication:Smoker Start:11-Sep-2018 Instruction Type:Patient Education Patient Instructions Indication:Smoker Start:11-Sep-2018 Instruction Type:Provider Instructions for Treatment How to access health informa tion online Indication:CAD, multiple vessel Start:26-Aug-2018 Instruction Type:Patient Education How to access health informa tion online - Detail Indication:CAD, multiple vessel Start:26-Aug-2018 Instruction Type:Patient Education [facility]; [facility] Work Phone: Instructions* Name Dates Details Patient Instructions Indication:Smoker Start:30-Oct-2021 Instruction Type:Provider Instructions for Treatment How to Access Health Informa tion Online using Patient Portal and [employer]rd [employer] Apps Indication:Smoker Start:30-Oct-2021 Instruction Type:Patient Education Patient Instructions Indication:Smoker Start:26-Jun-2021 Instruction Type:Provider Instructions for Treatment How to Access Health Informa tion Online using Patient Portal and [employer]rd [employer] Apps Indication:Smoker Start:26-Jun-2021 Instruction Type:Patient Education Patient Instructions Indication:Smoker Start:21-Dec-2020 Instruction Type:Provider Instructions for Treatment How to Access Health Informa tion Online using Patient Portal and [employer]rd [employer] Apps Indication:Smoker Start:21-Dec-2020 Instruction Type:Patient Education How to access health informa tion online Indication:Smoker Start:02-May-2020 Instruction Type:Patient Education How to access health informa tion online - Detail Indication:Smoker Start:02-May-2020 Instruction Type:Patient Education Patient Instructions Indication:Smoker Start:02-May-2020 Instruction Type:Provider Instructions for Treatment How to access health informa tion online Indication:BMI 33.0-33.9,adult Start:25-Apr-2020 Instruction Type:Patient Education How to access health informa tion online - Detail Indication:BMI 33.0-33.9,adult Start:25-Apr-2020 Instruction Type:Patient Education Patient Instructions Indication:BMI 33.0-33.9,adult Start:25-Apr-2020 Instruction Type:Provider Instructions for Treatment How to access health informa tion online Indication:BMI 32.0-32.9,adult Start:01-Feb-2020 Instruction Type:Patient Education How to access health informa tion online - Detail Indication:BMI 32.0-32.9,adult Start:01-Feb-2020 Instruction Type:Patient Education Patient Instructions Indication:BMI 32.0-32.9,adult Start:01-Feb-2020 Instruction Type:Provider Instructions for Treatment How to access health informa tion online Indication:BMI 33.0-33.9,adult Start:11-Jan-2020 Instruction Type:Patient Education How to access health informa tion online - Detail Indication:BMI 33.0-33.9,adult Start:11-Jan-2020 Instruction Type:Patient Education Patient Instructions Indication:BMI 33.0-33.9,adult Start:11-Jan-2020 Instruction Type:Provider Instructions for Treatment How to access health informa tion online Indication:BMI 34.0-34.9,adult Start:24-Dec-2019 Instruction Type:Patient Education How to access health informa tion online - Detail Indication:BMI 34.0-34.9,adult Start:24-Dec-2019 Instruction Type:Patient Education Patient Instructions Indication:BMI 34.0-34.9,adult Start:24-Dec-2019 Instruction Type:Provider Instructions for Treatment How to access health informa tion online Indication:BMI 31.0-31.9,adult Start:13-Apr-2019 Instruction Type:Patient Education How to access health informa tion online - Detail Indication:BMI 31.0-31.9,adult Start:13-Apr-2019 Instruction Type:Patient Education Patient Instructions Indication:BMI 31.0-31.9,adult Start:13-Apr-2019 Instruction Type:Provider Instructions for Treatment How to access health informa tion online Indication:Non-smoker Start:12-Jan-2019 Instruction Type:Patient Education How to access health informa tion online - Detail Indication:Non-smoker Start:12-Jan-2019 Instruction Type:Patient Education Patient Instructions Indication:Non-smoker Start:12-Jan-2019 Instruction Type:Provider Instructions for Treatment How to access health informa tion online Indication:Non-smoker Start:22-Dec-2018 Instruction Type:Patient Education How to access health informa tion online - Detail Indication:Non-smoker Start:22-Dec-2018 Instruction Type:Patient Education Patient Instructions Indication:Non-smoker Start:22-Dec-2018 Instruction Type:Provider Instructions for Treatment How to access health informa tion online Indication:Smoker Start:08-Dec-2018 Instruction Type:Patient Education How to access health informa tion online - Detail Indication:Smoker Start:08-Dec-2018 Instruction Type:Patient Education Patient Instructions Indication:Smoker Start:08-Dec-2018 Instruction Type:Provider Instructions for Treatment How to access health informa tion online Indication:BMI 30.0-30.9,adult Start:01-Dec-2018 Instruction Type:Patient Education How to access health informa tion online - Detail Indication:BMI 30.0-30.9,adult Start:01-Dec-2018 Instruction Type:Patient Education Patient Instructions Indication:BMI 30.0-30.9,adult Start:01-Dec-2018 Instruction Type:Provider Instructions for Treatment How to access health informa tion online Indication:Smoker Start:31-Oct-2018 Instruction Type:Patient Education How to access health informa tion online - Detail Indication:Smoker Start:31-Oct-2018 Instruction Type:Patient Education Patient Instructions Indication:Smoker Start:31-Oct-2018 Instruction Type:Provider Instructions for Treatment How to access health informa tion online Indication:BMI 34.0-34.9,adult Start:28-Oct-2018 Instruction Type:Patient Education How to access health informa tion online - Detail Indication:BMI 34.0-34.9,adult Start:28-Oct-2018 Instruction Type:Patient Education Patient Instructions Indication:BMI 34.0-34.9,adult Start:28-Oct-2018 Instruction Type:Provider Instructions for Treatment How to access health informa tion online Indication:Smoker Start:11-Sep-2018 Instruction Type:Patient Education How to access health informa tion online - Detail Indication:Smoker Start:11-Sep-2018 Instruction Type:Patient Education Patient Instructions Indication:Smoker Start:11-Sep-2018 Instruction Type:Provider Instructions for Treatment How to access health informa tion online Indication:CAD, multiple vessel Start:26-Aug-2018 Instruction Type:Patient Education How to access health informa tion online - Detail Indication:CAD, multiple vessel Start:26-Aug-2018 Instruction Type:Patient Education [facility]; [facility] Work Phone: Instructions* Name Dates Details Patient Instructions Indication:Type II diabetes mellitus, well controlled Start:05-Mar-2022 Instruction Type:Provider Instructions for Treatment How to Access Health Informa tion Online using Patient Portal and [employer]rd [employer] Apps Indication:Type II diabetes mellitus, well controlled Start:05-Mar-2022 Instruction Type:Patient Education Patient Instructions Indication:Smoker Start:30-Oct-2021 Instruction Type:Provider Instructions for Treatment How to Access Health Informa tion Online using Patient Portal and [employer]rd [employer] Apps Indication:Smoker Start:30-Oct-2021 Instruction Type:Patient Education Patient Instructions Indication:Smoker Start:26-Jun-2021 Instruction Type:Provider Instructions for Treatment How to Access Health Informa tion Online using Patient Portal and [employer]rd [employer] Apps Indication:Smoker Start:26-Jun-2021 Instruction Type:Patient Education Patient Instructions Indication:Smoker Start:21-Dec-2020 Instruction Type:Provider Instructions for Treatment How to Access Health Informa tion Online using Patient Portal and [employer]rd [employer] Apps Indication:Smoker Start:21-Dec-2020 Instruction Type:Patient Education How to access health informa tion online Indication:Smoker Start:02-May-2020 Instruction Type:Patient Education How to access health informa tion online - Detail Indication:Smoker Start:02-May-2020 Instruction Type:Patient Education Patient Instructions Indication:Smoker Start:02-May-2020 Instruction Type:Provider Instructions for Treatment How to access health informa tion online Indication:BMI 33.0-33.9,adult Start:25-Apr-2020 Instruction Type:Patient Education How to access health informa tion online - Detail Indication:BMI 33.0-33.9,adult Start:25-Apr-2020 Instruction Type:Patient Education Patient Instructions Indication:BMI 33.0-33.9,adult Start:25-Apr-2020 Instruction Type:Provider Instructions for Treatment How to access health informa tion online Indication:BMI 32.0-32.9,adult Start:01-Feb-2020 Instruction Type:Patient Education How to access health informa tion online - Detail Indication:BMI 32.0-32.9,adult Start:01-Feb-2020 Instruction Type:Patient Education Patient Instructions Indication:BMI 32.0-32.9,adult Start:01-Feb-2020 Instruction Type:Provider Instructions for Treatment How to access health informa tion online Indication:BMI 33.0-33.9,adult Start:11-Jan-2020 Instruction Type:Patient Education How to access health informa tion online - Detail Indication:BMI 33.0-33.9,adult Start:11-Jan-2020 Instruction Type:Patient Education Patient Instructions Indication:BMI 33.0-33.9,adult Start:11-Jan-2020 Instruction Type:Provider Instructions for Treatment How to access health informa tion online Indication:BMI 34.0-34.9,adult Start:24-Dec-2019 Instruction Type:Patient Education How to access health informa tion online - Detail Indication:BMI 34.0-34.9,adult Start:24-Dec-2019 Instruction Type:Patient Education Patient Instructions Indication:BMI 34.0-34.9,adult Start:24-Dec-2019 Instruction Type:Provider Instructions for Treatment How to access health informa tion online Indication:BMI 31.0-31.9,adult Start:13-Apr-2019 Instruction Type:Patient Education How to access health informa tion online - Detail Indication:BMI 31.0-31.9,adult Start:13-Apr-2019 Instruction Type:Patient Education Patient Instructions Indication:BMI 31.0-31.9,adult Start:13-Apr-2019 Instruction Type:Provider Instructions for Treatment How to access health informa tion online Indication:Non-smoker Start:12-Jan-2019 Instruction Type:Patient Education How to access health informa tion online - Detail Indication:Non-smoker Start:12-Jan-2019 Instruction Type:Patient Education Patient Instructions Indication:Non-smoker Start:12-Jan-2019 Instruction Type:Provider Instructions for Treatment How to access health informa tion online Indication:Non-smoker Start:22-Dec-2018 Instruction Type:Patient Education How to access health informa tion online - Detail Indication:Non-smoker Start:22-Dec-2018 Instruction Type:Patient Education Patient Instructions Indication:Non-smoker Start:22-Dec-2018 Instruction Type:Provider Instructions for Treatment How to access health informa tion online Indication:Smoker Start:08-Dec-2018 Instruction Type:Patient Education How to access health informa tion online - Detail Indication:Smoker Start:08-Dec-2018 Instruction Type:Patient Education Patient Instructions Indication:Smoker Start:08-Dec-2018 Instruction Type:Provider Instructions for Treatment How to access health informa tion online Indication:BMI 30.0-30.9,adult Start:01-Dec-2018 Instruction Type:Patient Education How to access health informa tion online - Detail Indication:BMI 30.0-30.9,adult Start:01-Dec-2018 Instruction Type:Patient Education Patient Instructions Indication:BMI 30.0-30.9,adult Start:01-Dec-2018 Instruction Type:Provider Instructions for Treatment How to access health informa tion online Indication:Smoker Start:31-Oct-2018 Instruction Type:Patient Education How to access health informa tion online - Detail Indication:Smoker Start:31-Oct-2018 Instruction Type:Patient Education Patient Instructions Indication:Smoker Start:31-Oct-2018 Instruction Type:Provider Instructions for Treatment How to access health informa tion online Indication:BMI 34.0-34.9,adult Start:28-Oct-2018 Instruction Type:Patient Education How to access health informa tion online - Detail Indication:BMI 34.0-34.9,adult Start:28-Oct-2018 Instruction Type:Patient Education Patient Instructions Indication:BMI 34.0-34.9,adult Start:28-Oct-2018 Instruction Type:Provider Instructions for Treatment How to access health informa tion online Indication:Smoker Start:11-Sep-2018 Instruction Type:Patient Education How to access health informa tion online - Detail Indication:Smoker Start:11-Sep-2018 Instruction Type:Patient Education Patient Instructions Indication:Smoker Start:11-Sep-2018 Instruction Type:Provider Instructions for Treatment How to access health informa tion online Indication:CAD, multiple vessel Start:26-Aug-2018 Instruction Type:Patient Education How to access health informa tion online - Detail Indication:CAD, multiple vessel Start:26-Aug-2018 Instruction Type:Patient Education [facility]; [facility] Work Phone: Instructions* Name Dates Details Patient Instructions Indication:Type II diabetes mellitus, well controlled Start:05-Mar-2022 Instruction Type:Provider Instructions for Treatment How to Access Health Informa tion Online using Patient Portal and [employer]rd [employer] Apps Indication:Type II diabetes mellitus, well controlled Start:05-Mar-2022 Instruction Type:Patient Education Patient Instructions Indication:Smoker Start:30-Oct-2021 Instruction Type:Provider Instructions for Treatment How to Access Health Informa tion Online using Patient Portal and [employer]rd [employer] Apps Indication:Smoker Start:30-Oct-2021 Instruction Type:Patient Education Patient Instructions Indication:Smoker Start:26-Jun-2021 Instruction Type:Provider Instructions for Treatment How to Access Health Informa tion Online using Patient Portal and [employer]rd [employer] Apps Indication:Smoker Start:26-Jun-2021 Instruction Type:Patient Education Patient Instructions Indication:Smoker Start:21-Dec-2020 Instruction Type:Provider Instructions for Treatment How to Access Health Informa tion Online using Patient Portal and [employer]rd [employer] Apps Indication:Smoker Start:21-Dec-2020 Instruction Type:Patient Education How to access health informa tion online Indication:Smoker Start:02-May-2020 Instruction Type:Patient Education How to access health informa tion online - Detail Indication:Smoker Start:02-May-2020 Instruction Type:Patient Education Patient Instructions Indication:Smoker Start:02-May-2020 Instruction Type:Provider Instructions for Treatment How to access health informa tion online Indication:BMI 33.0-33.9,adult Start:25-Apr-2020 Instruction Type:Patient Education How to access health informa tion online - Detail Indication:BMI 33.0-33.9,adult Start:25-Apr-2020 Instruction Type:Patient Education Patient Instructions Indication:BMI 33.0-33.9,adult Start:25-Apr-2020 Instruction Type:Provider Instructions for Treatment How to access health informa tion online Indication:BMI 32.0-32.9,adult Start:01-Feb-2020 Instruction Type:Patient Education How to access health informa tion online - Detail Indication:BMI 32.0-32.9,adult Start:01-Feb-2020 Instruction Type:Patient Education Patient Instructions Indication:BMI 32.0-32.9,adult Start:01-Feb-2020 Instruction Type:Provider Instructions for Treatment How to access health informa tion online Indication:BMI 33.0-33.9,adult Start:11-Jan-2020 Instruction Type:Patient Education How to access health informa tion online - Detail Indication:BMI 33.0-33.9,adult Start:11-Jan-2020 Instruction Type:Patient Education Patient Instructions Indication:BMI 33.0-33.9,adult Start:11-Jan-2020 Instruction Type:Provider Instructions for Treatment How to access health informa tion online Indication:BMI 34.0-34.9,adult Start:24-Dec-2019 Instruction Type:Patient Education How to access health informa tion online - Detail Indication:BMI 34.0-34.9,adult Start:24-Dec-2019 Instruction Type:Patient Education Patient Instructions Indication:BMI 34.0-34.9,adult Start:24-Dec-2019 Instruction Type:Provider Instructions for Treatment How to access health informa tion online Indication:BMI 31.0-31.9,adult Start:13-Apr-2019 Instruction Type:Patient Education How to access health informa tion online - Detail Indication:BMI 31.0-31.9,adult Start:13-Apr-2019 Instruction Type:Patient Education Patient Instructions Indication:BMI 31.0-31.9,adult Start:13-Apr-2019 Instruction Type:Provider Instructions for Treatment How to access health informa tion online Indication:Non-smoker Start:12-Jan-2019 Instruction Type:Patient Education How to access health informa tion online - Detail Indication:Non-smoker Start:12-Jan-2019 Instruction Type:Patient Education Patient Instructions Indication:Non-smoker Start:12-Jan-2019 Instruction Type:Provider Instructions for Treatment How to access health informa tion online Indication:Non-smoker Start:22-Dec-2018 Instruction Type:Patient Education How to access health informa tion online - Detail Indication:Non-smoker Start:22-Dec-2018 Instruction Type:Patient Education Patient Instructions Indication:Non-smoker Start:22-Dec-2018 Instruction Type:Provider Instructions for Treatment How to access health informa tion online Indication:Smoker Start:08-Dec-2018 Instruction Type:Patient Education How to access health informa tion online - Detail Indication:Smoker Start:08-Dec-2018 Instruction Type:Patient Education Patient Instructions Indication:Smoker Start:08-Dec-2018 Instruction Type:Provider Instructions for Treatment How to access health informa tion online Indication:BMI 30.0-30.9,adult Start:01-Dec-2018 Instruction Type:Patient Education How to access health informa tion online - Detail Indication:BMI 30.0-30.9,adult Start:01-Dec-2018 Instruction Type:Patient Education Patient Instructions Indication:BMI 30.0-30.9,adult Start:01-Dec-2018 Instruction Type:Provider Instructions for Treatment How to access health informa tion online Indication:Smoker Start:31-Oct-2018 Instruction Type:Patient Education How to access health informa tion online - Detail Indication:Smoker Start:31-Oct-2018 Instruction Type:Patient Education Patient Instructions Indication:Smoker Start:31-Oct-2018 Instruction Type:Provider Instructions for Treatment How to access health informa tion online Indication:BMI 34.0-34.9,adult Start:28-Oct-2018 Instruction Type:Patient Education How to access health informa tion online - Detail Indication:BMI 34.0-34.9,adult Start:28-Oct-2018 Instruction Type:Patient Education Patient Instructions Indication:BMI 34.0-34.9,adult Start:28-Oct-2018 Instruction Type:Provider Instructions for Treatment How to access health informa tion online Indication:Smoker Start:11-Sep-2018 Instruction Type:Patient Education How to access health informa tion online - Detail Indication:Smoker Start:11-Sep-2018 Instruction Type:Patient Education Patient Instructions Indication:Smoker Start:11-Sep-2018 Instruction Type:Provider Instructions for Treatment How to access health informa tion online Indication:CAD, multiple vessel Start:26-Aug-2018 Instruction Type:Patient Education How to access health informa tion online - Detail Indication:CAD, multiple vessel Start:26-Aug-2018 Instruction Type:Patient Education [facility]; [facility] Work Phone: Instructions* Name Dates Details Patient Instructions Indication:Type II diabetes mellitus, well controlled Start:05-Mar-2022 Instruction Type:Provider Instructions for Treatment How to Access Health Informa tion Online using Patient Portal and [employer]rd [employer] Apps Indication:Type II diabetes mellitus, well controlled Start:05-Mar-2022 Instruction Type:Patient Education Patient Instructions Indication:Smoker Start:30-Oct-2021 Instruction Type:Provider Instructions for Treatment How to Access Health Informa tion Online using Patient Portal and [employer]rd [employer] Apps Indication:Smoker Start:30-Oct-2021 Instruction Type:Patient Education Patient Instructions Indication:Smoker Start:26-Jun-2021 Instruction Type:Provider Instructions for Treatment How to Access Health Informa tion Online using Patient Portal and [employer]rd [employer] Apps Indication:Smoker Start:26-Jun-2021 Instruction Type:Patient Education Patient Instructions Indication:Smoker Start:21-Dec-2020 Instruction Type:Provider Instructions for Treatment How to Access Health Informa tion Online using Patient Portal and [employer]rd [employer] Apps Indication:Smoker Start:21-Dec-2020 Instruction Type:Patient Education How to access health informa tion online Indication:Smoker Start:02-May-2020 Instruction Type:Patient Education How to access health informa tion online - Detail Indication:Smoker Start:02-May-2020 Instruction Type:Patient Education Patient Instructions Indication:Smoker Start:02-May-2020 Instruction Type:Provider Instructions for Treatment How to access health informa tion online Indication:BMI 33.0-33.9,adult Start:25-Apr-2020 Instruction Type:Patient Education How to access health informa tion online - Detail Indication:BMI 33.0-33.9,adult Start:25-Apr-2020 Instruction Type:Patient Education Patient Instructions Indication:BMI 33.0-33.9,adult Start:25-Apr-2020 Instruction Type:Provider Instructions for Treatment How to access health informa tion online Indication:BMI 32.0-32.9,adult Start:01-Feb-2020 Instruction Type:Patient Education How to access health informa tion online - Detail Indication:BMI 32.0-32.9,adult Start:01-Feb-2020 Instruction Type:Patient Education Patient Instructions Indication:BMI 32.0-32.9,adult Start:01-Feb-2020 Instruction Type:Provider Instructions for Treatment How to access health informa tion online Indication:BMI 33.0-33.9,adult Start:11-Jan-2020 Instruction Type:Patient Education How to access health informa tion online - Detail Indication:BMI 33.0-33.9,adult Start:11-Jan-2020 Instruction Type:Patient Education Patient Instructions Indication:BMI 33.0-33.9,adult Start:11-Jan-2020 Instruction Type:Provider Instructions for Treatment How to access health informa tion online Indication:BMI 34.0-34.9,adult Start:24-Dec-2019 Instruction Type:Patient Education How to access health informa tion online - Detail Indication:BMI 34.0-34.9,adult Start:24-Dec-2019 Instruction Type:Patient Education Patient Instructions Indication:BMI 34.0-34.9,adult Start:24-Dec-2019 Instruction Type:Provider Instructions for Treatment How to access health informa tion online Indication:BMI 31.0-31.9,adult Start:13-Apr-2019 Instruction Type:Patient Education How to access health informa tion online - Detail Indication:BMI 31.0-31.9,adult Start:13-Apr-2019 Instruction Type:Patient Education Patient Instructions Indication:BMI 31.0-31.9,adult Start:13-Apr-2019 Instruction Type:Provider Instructions for Treatment How to access health informa tion online Indication:Non-smoker Start:12-Jan-2019 Instruction Type:Patient Education How to access health informa tion online - Detail Indication:Non-smoker Start:12-Jan-2019 Instruction Type:Patient Education Patient Instructions Indication:Non-smoker Start:12-Jan-2019 Instruction Type:Provider Instructions for Treatment How to access health informa tion online Indication:Non-smoker Start:22-Dec-2018 Instruction Type:Patient Education How to access health informa tion online - Detail Indication:Non-smoker Start:22-Dec-2018 Instruction Type:Patient Education Patient Instructions Indication:Non-smoker Start:22-Dec-2018 Instruction Type:Provider Instructions for Treatment How to access health informa tion online Indication:Smoker Start:08-Dec-2018 Instruction Type:Patient Education How to access health informa tion online - Detail Indication:Smoker Start:08-Dec-2018 Instruction Type:Patient Education Patient Instructions Indication:Smoker Start:08-Dec-2018 Instruction Type:Provider Instructions for Treatment How to access health informa tion online Indication:BMI 30.0-30.9,adult Start:01-Dec-2018 Instruction Type:Patient Education How to access health informa tion online - Detail Indication:BMI 30.0-30.9,adult Start:01-Dec-2018 Instruction Type:Patient Education Patient Instructions Indication:BMI 30.0-30.9,adult Start:01-Dec-2018 Instruction Type:Provider Instructions for Treatment How to access health informa tion online Indication:Smoker Start:31-Oct-2018 Instruction Type:Patient Education How to access health informa tion online - Detail Indication:Smoker Start:31-Oct-2018 Instruction Type:Patient Education Patient Instructions Indication:Smoker Start:31-Oct-2018 Instruction Type:Provider Instructions for Treatment How to access health informa tion online Indication:BMI 34.0-34.9,adult Start:28-Oct-2018 Instruction Type:Patient Education How to access health informa tion online - Detail Indication:BMI 34.0-34.9,adult Start:28-Oct-2018 Instruction Type:Patient Education Patient Instructions Indication:BMI 34.0-34.9,adult Start:28-Oct-2018 Instruction Type:Provider Instructions for Treatment How to access health informa tion online Indication:Smoker Start:11-Sep-2018 Instruction Type:Patient Education How to access health informa tion online - Detail Indication:Smoker Start:11-Sep-2018 Instruction Type:Patient Education Patient Instructions Indication:Smoker Start:11-Sep-2018 Instruction Type:Provider Instructions for Treatment How to access health informa tion online Indication:CAD, multiple vessel Start:26-Aug-2018 Instruction Type:Patient Education How to access health informa tion online - Detail Indication:CAD, multiple vessel Start:26-Aug-2018 Instruction Type:Patient Education [facility]; [facility] Work Phone: Instructions* Name Dates Details Patient Instructions Indication:Type II diabetes mellitus, well controlled Start:05-Mar-2022 Instruction Type:Provider Instructions for Treatment How to Access Health Informa tion Online using Patient Portal and [employer]rd [employer] Apps Indication:Type II diabetes mellitus, well controlled Start:05-Mar-2022 Instruction Type:Patient Education Patient Instructions Indication:Smoker Start:30-Oct-2021 Instruction Type:Provider Instructions for Treatment How to Access Health Informa tion Online using Patient Portal and [employer]rd [employer] Apps Indication:Smoker Start:30-Oct-2021 Instruction Type:Patient Education Patient Instructions Indication:Smoker Start:26-Jun-2021 Instruction Type:Provider Instructions for Treatment How to Access Health Informa tion Online using Patient Portal and [employer]rd [employer] Apps Indication:Smoker Start:26-Jun-2021 Instruction Type:Patient Education Patient Instructions Indication:Smoker Start:21-Dec-2020 Instruction Type:Provider Instructions for Treatment How to Access Health Informa tion Online using Patient Portal and [employer]rd [employer] Apps Indication:Smoker Start:21-Dec-2020 Instruction Type:Patient Education How to access health informa tion online Indication:Smoker Start:02-May-2020 Instruction Type:Patient Education How to access health informa tion online - Detail Indication:Smoker Start:02-May-2020 Instruction Type:Patient Education Patient Instructions Indication:Smoker Start:02-May-2020 Instruction Type:Provider Instructions for Treatment How to access health informa tion online Indication:BMI 33.0-33.9,adult Start:25-Apr-2020 Instruction Type:Patient Education How to access health informa tion online - Detail Indication:BMI 33.0-33.9,adult Start:25-Apr-2020 Instruction Type:Patient Education Patient Instructions Indication:BMI 33.0-33.9,adult Start:25-Apr-2020 Instruction Type:Provider Instructions for Treatment How to access health informa tion online Indication:BMI 32.0-32.9,adult Start:01-Feb-2020 Instruction Type:Patient Education How to access health informa tion online - Detail Indication:BMI 32.0-32.9,adult Start:01-Feb-2020 Instruction Type:Patient Education Patient Instructions Indication:BMI 32.0-32.9,adult Start:01-Feb-2020 Instruction Type:Provider Instructions for Treatment How to access health informa tion online Indication:BMI 33.0-33.9,adult Start:11-Jan-2020 Instruction Type:Patient Education How to access health informa tion online - Detail Indication:BMI 33.0-33.9,adult Start:11-Jan-2020 Instruction Type:Patient Education Patient Instructions Indication:BMI 33.0-33.9,adult Start:11-Jan-2020 Instruction Type:Provider Instructions for Treatment How to access health informa tion online Indication:BMI 34.0-34.9,adult Start:24-Dec-2019 Instruction Type:Patient Education How to access health informa tion online - Detail Indication:BMI 34.0-34.9,adult Start:24-Dec-2019 Instruction Type:Patient Education Patient Instructions Indication:BMI 34.0-34.9,adult Start:24-Dec-2019 Instruction Type:Provider Instructions for Treatment How to access health informa tion online Indication:BMI 31.0-31.9,adult Start:13-Apr-2019 Instruction Type:Patient Education How to access health informa tion online - Detail Indication:BMI 31.0-31.9,adult Start:13-Apr-2019 Instruction Type:Patient Education Patient Instructions Indication:BMI 31.0-31.9,adult Start:13-Apr-2019 Instruction Type:Provider Instructions for Treatment How to access health informa tion online Indication:Non-smoker Start:12-Jan-2019 Instruction Type:Patient Education How to access health informa tion online - Detail Indication:Non-smoker Start:12-Jan-2019 Instruction Type:Patient Education Patient Instructions Indication:Non-smoker Start:12-Jan-2019 Instruction Type:Provider Instructions for Treatment How to access health informa tion online Indication:Non-smoker Start:22-Dec-2018 Instruction Type:Patient Education How to access health informa tion online - Detail Indication:Non-smoker Start:22-Dec-2018 Instruction Type:Patient Education Patient Instructions Indication:Non-smoker Start:22-Dec-2018 Instruction Type:Provider Instructions for Treatment How to access health informa tion online Indication:Smoker Start:08-Dec-2018 Instruction Type:Patient Education How to access health informa tion online - Detail Indication:Smoker Start:08-Dec-2018 Instruction Type:Patient Education Patient Instructions Indication:Smoker Start:08-Dec-2018 Instruction Type:Provider Instructions for Treatment How to access health informa tion online Indication:BMI 30.0-30.9,adult Start:01-Dec-2018 Instruction Type:Patient Education How to access health informa tion online - Detail Indication:BMI 30.0-30.9,adult Start:01-Dec-2018 Instruction Type:Patient Education Patient Instructions Indication:BMI 30.0-30.9,adult Start:01-Dec-2018 Instruction Type:Provider Instructions for Treatment How to access health informa tion online Indication:Smoker Start:31-Oct-2018 Instruction Type:Patient Education How to access health informa tion online - Detail Indication:Smoker Start:31-Oct-2018 Instruction Type:Patient Education Patient Instructions Indication:Smoker Start:31-Oct-2018 Instruction Type:Provider Instructions for Treatment How to access health informa tion online Indication:BMI 34.0-34.9,adult Start:28-Oct-2018 Instruction Type:Patient Education How to access health informa tion online - Detail Indication:BMI 34.0-34.9,adult Start:28-Oct-2018 Instruction Type:Patient Education Patient Instructions Indication:BMI 34.0-34.9,adult Start:28-Oct-2018 Instruction Type:Provider Instructions for Treatment How to access health informa tion online Indication:Smoker Start:11-Sep-2018 Instruction Type:Patient Education How to access health informa tion online - Detail Indication:Smoker Start:11-Sep-2018 Instruction Type:Patient Education Patient Instructions Indication:Smoker Start:11-Sep-2018 Instruction Type:Provider Instructions for Treatment How to access health informa tion online Indication:CAD, multiple vessel Start:26-Aug-2018 Instruction Type:Patient Education How to access health informa tion online - Detail Indication:CAD, multiple vessel Start:26-Aug-2018 Instruction Type:Patient Education [facility]; [facility] Work Phone: Instructions* Name Dates Details Patient Instructions Indication:Type II diabetes mellitus, well controlled Start:05-Mar-2022 Instruction Type:Provider Instructions for Treatment How to Access Health Informa tion Online using Patient Portal and [employer]rd [employer] Apps Indication:Type II diabetes mellitus, well controlled Start:05-Mar-2022 Instruction Type:Patient Education Patient Instructions Indication:Smoker Start:30-Oct-2021 Instruction Type:Provider Instructions for Treatment How to Access Health Informa tion Online using Patient Portal and [employer]rd [employer] Apps Indication:Smoker Start:30-Oct-2021 Instruction Type:Patient Education Patient Instructions Indication:Smoker Start:26-Jun-2021 Instruction Type:Provider Instructions for Treatment How to Access Health Informa tion Online using Patient Portal and [employer]rd [employer] Apps Indication:Smoker Start:26-Jun-2021 Instruction Type:Patient Education Patient Instructions Indication:Smoker Start:21-Dec-2020 Instruction Type:Provider Instructions for Treatment How to Access Health Informa tion Online using Patient Portal and [employer]rd [employer] Apps Indication:Smoker Start:21-Dec-2020 Instruction Type:Patient Education How to access health informa tion online Indication:Smoker Start:02-May-2020 Instruction Type:Patient Education How to access health informa tion online - Detail Indication:Smoker Start:02-May-2020 Instruction Type:Patient Education Patient Instructions Indication:Smoker Start:02-May-2020 Instruction Type:Provider Instructions for Treatment How to access health informa tion online Indication:BMI 33.0-33.9,adult Start:25-Apr-2020 Instruction Type:Patient Education How to access health informa tion online - Detail Indication:BMI 33.0-33.9,adult Start:25-Apr-2020 Instruction Type:Patient Education Patient Instructions Indication:BMI 33.0-33.9,adult Start:25-Apr-2020 Instruction Type:Provider Instructions for Treatment How to access health informa tion online Indication:BMI 32.0-32.9,adult Start:01-Feb-2020 Instruction Type:Patient Education How to access health informa tion online - Detail Indication:BMI 32.0-32.9,adult Start:01-Feb-2020 Instruction Type:Patient Education Patient Instructions Indication:BMI 32.0-32.9,adult Start:01-Feb-2020 Instruction Type:Provider Instructions for Treatment How to access health informa tion online Indication:BMI 33.0-33.9,adult Start:11-Jan-2020 Instruction Type:Patient Education How to access health informa tion online - Detail Indication:BMI 33.0-33.9,adult Start:11-Jan-2020 Instruction Type:Patient Education Patient Instructions Indication:BMI 33.0-33.9,adult Start:11-Jan-2020 Instruction Type:Provider Instructions for Treatment How to access health informa tion online Indication:BMI 34.0-34.9,adult Start:24-Dec-2019 Instruction Type:Patient Education How to access health informa tion online - Detail Indication:BMI 34.0-34.9,adult Start:24-Dec-2019 Instruction Type:Patient Education Patient Instructions Indication:BMI 34.0-34.9,adult Start:24-Dec-2019 Instruction Type:Provider Instructions for Treatment How to access health informa tion online Indication:BMI 31.0-31.9,adult Start:13-Apr-2019 Instruction Type:Patient Education How to access health informa tion online - Detail Indication:BMI 31.0-31.9,adult Start:13-Apr-2019 Instruction Type:Patient Education Patient Instructions Indication:BMI 31.0-31.9,adult Start:13-Apr-2019 Instruction Type:Provider Instructions for Treatment How to access health informa tion online Indication:Non-smoker Start:12-Jan-2019 Instruction Type:Patient Education How to access health informa tion online - Detail Indication:Non-smoker Start:12-Jan-2019 Instruction Type:Patient Education Patient Instructions Indication:Non-smoker Start:12-Jan-2019 Instruction Type:Provider Instructions for Treatment How to access health informa tion online Indication:Non-smoker Start:22-Dec-2018 Instruction Type:Patient Education How to access health informa tion online - Detail Indication:Non-smoker Start:22-Dec-2018 Instruction Type:Patient Education Patient Instructions Indication:Non-smoker Start:22-Dec-2018 Instruction Type:Provider Instructions for Treatment How to access health informa tion online Indication:Smoker Start:08-Dec-2018 Instruction Type:Patient Education How to access health informa tion online - Detail Indication:Smoker Start:08-Dec-2018 Instruction Type:Patient Education Patient Instructions Indication:Smoker Start:08-Dec-2018 Instruction Type:Provider Instructions for Treatment How to access health informa tion online Indication:BMI 30.0-30.9,adult Start:01-Dec-2018 Instruction Type:Patient Education How to access health informa tion online - Detail Indication:BMI 30.0-30.9,adult Start:01-Dec-2018 Instruction Type:Patient Education Patient Instructions Indication:BMI 30.0-30.9,adult Start:01-Dec-2018 Instruction Type:Provider Instructions for Treatment How to access health informa tion online Indication:Smoker Start:31-Oct-2018 Instruction Type:Patient Education How to access health informa tion online - Detail Indication:Smoker Start:31-Oct-2018 Instruction Type:Patient Education Patient Instructions Indication:Smoker Start:31-Oct-2018 Instruction Type:Provider Instructions for Treatment How to access health informa tion online Indication:BMI 34.0-34.9,adult Start:28-Oct-2018 Instruction Type:Patient Education How to access health informa tion online - Detail Indication:BMI 34.0-34.9,adult Start:28-Oct-2018 Instruction Type:Patient Education Patient Instructions Indication:BMI 34.0-34.9,adult Start:28-Oct-2018 Instruction Type:Provider Instructions for Treatment How to access health informa tion online Indication:Smoker Start:11-Sep-2018 Instruction Type:Patient Education How to access health informa tion online - Detail Indication:Smoker Start:11-Sep-2018 Instruction Type:Patient Education Patient Instructions Indication:Smoker Start:11-Sep-2018 Instruction Type:Provider Instructions for Treatment How to access health informa tion online Indication:CAD, multiple vessel Start:26-Aug-2018 Instruction Type:Patient Education How to access health informa tion online - Detail Indication:CAD, multiple vessel Start:26-Aug-2018 Instruction Type:Patient Education [facility]; [facility] Work Phone: Instructions* Name Dates Details Patient Instructions Indication:Smoker Start:06-Jun-2022 Instruction Type:Provider Instructions for Treatment How to Access Health Informa tion Online using Patient Portal and [employer]rd [employer] Apps Indication:Smoker Start:06-Jun-2022 Instruction Type:Patient Education Patient Instructions Indication:Type II diabetes mellitus, well controlled Start:05-Mar-2022 Instruction Type:Provider Instructions for Treatment How to Access Health Informa tion Online using Patient Portal and [employer]rd [employer] Apps Indication:Type II diabetes mellitus, well controlled Start:05-Mar-2022 Instruction Type:Patient Education Patient Instructions Indication:Smoker Start:30-Oct-2021 Instruction Type:Provider Instructions for Treatment How to Access Health Informa tion Online using Patient Portal and [employer]rd [employer] Apps Indication:Smoker Start:30-Oct-2021 Instruction Type:Patient Education Patient Instructions Indication:Smoker Start:26-Jun-2021 Instruction Type:Provider Instructions for Treatment How to Access Health Informa tion Online using Patient Portal and [employer]rd [employer] Apps Indication:Smoker Start:26-Jun-2021 Instruction Type:Patient Education Patient Instructions Indication:Smoker Start:21-Dec-2020 Instruction Type:Provider Instructions for Treatment How to Access Health Informa tion Online using Patient Portal and [employer]rd [employer] Apps Indication:Smoker Start:21-Dec-2020 Instruction Type:Patient Education How to access health informa tion online Indication:Smoker Start:02-May-2020 Instruction Type:Patient Education How to access health informa tion online - Detail Indication:Smoker Start:02-May-2020 Instruction Type:Patient Education Patient Instructions Indication:Smoker Start:02-May-2020 Instruction Type:Provider Instructions for Treatment How to access health informa tion online Indication:BMI 33.0-33.9,adult Start:25-Apr-2020 Instruction Type:Patient Education How to access health informa tion online - Detail Indication:BMI 33.0-33.9,adult Start:25-Apr-2020 Instruction Type:Patient Education Patient Instructions Indication:BMI 33.0-33.9,adult Start:25-Apr-2020 Instruction Type:Provider Instructions for Treatment How to access health informa tion online Indication:BMI 32.0-32.9,adult Start:01-Feb-2020 Instruction Type:Patient Education How to access health informa tion online - Detail Indication:BMI 32.0-32.9,adult Start:01-Feb-2020 Instruction Type:Patient Education Patient Instructions Indication:BMI 32.0-32.9,adult Start:01-Feb-2020 Instruction Type:Provider Instructions for Treatment How to access health informa tion online Indication:BMI 33.0-33.9,adult Start:11-Jan-2020 Instruction Type:Patient Education How to access health informa tion online - Detail Indication:BMI 33.0-33.9,adult Start:11-Jan-2020 Instruction Type:Patient Education Patient Instructions Indication:BMI 33.0-33.9,adult Start:11-Jan-2020 Instruction Type:Provider Instructions for Treatment How to access health informa tion online Indication:BMI 34.0-34.9,adult Start:24-Dec-2019 Instruction Type:Patient Education How to access health informa tion online - Detail Indication:BMI 34.0-34.9,adult Start:24-Dec-2019 Instruction Type:Patient Education Patient Instructions Indication:BMI 34.0-34.9,adult Start:24-Dec-2019 Instruction Type:Provider Instructions for Treatment How to access health informa tion online Indication:BMI 31.0-31.9,adult Start:13-Apr-2019 Instruction Type:Patient Education How to access health informa tion online - Detail Indication:BMI 31.0-31.9,adult Start:13-Apr-2019 Instruction Type:Patient Education Patient Instructions Indication:BMI 31.0-31.9,adult Start:13-Apr-2019 Instruction Type:Provider Instructions for Treatment How to access health informa tion online Indication:Non-smoker Start:12-Jan-2019 Instruction Type:Patient Education How to access health informa tion online - Detail Indication:Non-smoker Start:12-Jan-2019 Instruction Type:Patient Education Patient Instructions Indication:Non-smoker Start:12-Jan-2019 Instruction Type:Provider Instructions for Treatment How to access health informa tion online Indication:Non-smoker Start:22-Dec-2018 Instruction Type:Patient Education How to access health informa tion online - Detail Indication:Non-smoker Start:22-Dec-2018 Instruction Type:Patient Education Patient Instructions Indication:Non-smoker Start:22-Dec-2018 Instruction Type:Provider Instructions for Treatment How to access health informa tion online Indication:Smoker Start:08-Dec-2018 Instruction Type:Patient Education How to access health informa tion online - Detail Indication:Smoker Start:08-Dec-2018 Instruction Type:Patient Education Patient Instructions Indication:Smoker Start:08-Dec-2018 Instruction Type:Provider Instructions for Treatment How to access health informa tion online Indication:BMI 30.0-30.9,adult Start:01-Dec-2018 Instruction Type:Patient Education How to access health informa tion online - Detail Indication:BMI 30.0-30.9,adult Start:01-Dec-2018 Instruction Type:Patient Education Patient Instructions Indication:BMI 30.0-30.9,adult Start:01-Dec-2018 Instruction Type:Provider Instructions for Treatment How to access health informa tion online Indication:Smoker Start:31-Oct-2018 Instruction Type:Patient Education How to access health informa tion online - Detail Indication:Smoker Start:31-Oct-2018 Instruction Type:Patient Education Patient Instructions Indication:Smoker Start:31-Oct-2018 Instruction Type:Provider Instructions for Treatment How to access health informa tion online Indication:BMI 34.0-34.9,adult Start:28-Oct-2018 Instruction Type:Patient Education How to access health informa tion online - Detail Indication:BMI 34.0-34.9,adult Start:28-Oct-2018 Instruction Type:Patient Education Patient Instructions Indication:BMI 34.0-34.9,adult Start:28-Oct-2018 Instruction Type:Provider Instructions for Treatment How to access health informa tion online Indication:Smoker Start:11-Sep-2018 Instruction Type:Patient Education How to access health informa tion online - Detail Indication:Smoker Start:11-Sep-2018 Instruction Type:Patient Education Patient Instructions Indication:Smoker Start:11-Sep-2018 Instruction Type:Provider Instructions for Treatment How to access health informa tion online Indication:CAD, multiple vessel Start:26-Aug-2018 Instruction Type:Patient Education How to access health informa tion online - Detail Indication:CAD, multiple vessel Start:26-Aug-2018 Instruction Type:Patient Education [facility]; [facility] Work Phone: Instructions* Name Dates Details Patient Instructions Indication:BMI 32.0-32.9,adult Start:28-Jun-2022 Instruction Type:Provider Instructions for Treatment How to Access Health Informa tion Online using Patient Portal and [employer]rd [employer] Apps Indication:BMI 32.0-32.9,adult Start:28-Jun-2022 Instruction Type:Patient Education Patient Instructions Indication:Smoker Start:06-Jun-2022 Instruction Type:Provider Instructions for Treatment How to Access Health Informa tion Online using Patient Portal and [employer]rd [employer] Apps Indication:Smoker Start:06-Jun-2022 Instruction Type:Patient Education Patient Instructions Indication:Type II diabetes mellitus, well controlled Start:05-Mar-2022 Instruction Type:Provider Instructions for Treatment How to Access Health Informa tion Online using Patient Portal and [employer]rd [employer] Apps Indication:Type II diabetes mellitus, well controlled Start:05-Mar-2022 Instruction Type:Patient Education Patient Instructions Indication:Smoker Start:30-Oct-2021 Instruction Type:Provider Instructions for Treatment How to Access Health Informa tion Online using Patient Portal and [employer]rd [employer] Apps Indication:Smoker Start:30-Oct-2021 Instruction Type:Patient Education Patient Instructions Indication:Smoker Start:26-Jun-2021 Instruction Type:Provider Instructions for Treatment How to Access Health Informa tion Online using Patient Portal and [employer]rd [employer] Apps Indication:Smoker Start:26-Jun-2021 Instruction Type:Patient Education Patient Instructions Indication:Smoker Start:21-Dec-2020 Instruction Type:Provider Instructions for Treatment How to Access Health Informa tion Online using Patient Portal and [employer]rd [employer] Apps Indication:Smoker Start:21-Dec-2020 Instruction Type:Patient Education How to access health informa tion online Indication:Smoker Start:02-May-2020 Instruction Type:Patient Education How to access health informa tion online - Detail Indication:Smoker Start:02-May-2020 Instruction Type:Patient Education Patient Instructions Indication:Smoker Start:02-May-2020 Instruction Type:Provider Instructions for Treatment How to access health informa tion online Indication:BMI 33.0-33.9,adult Start:25-Apr-2020 Instruction Type:Patient Education How to access health informa tion online - Detail Indication:BMI 33.0-33.9,adult Start:25-Apr-2020 Instruction Type:Patient Education Patient Instructions Indication:BMI 33.0-33.9,adult Start:25-Apr-2020 Instruction Type:Provider Instructions for Treatment How to access health informa tion online Indication:BMI 32.0-32.9,adult Start:01-Feb-2020 Instruction Type:Patient Education How to access health informa tion online - Detail Indication:BMI 32.0-32.9,adult Start:01-Feb-2020 Instruction Type:Patient Education Patient Instructions Indication:BMI 32.0-32.9,adult Start:01-Feb-2020 Instruction Type:Provider Instructions for Treatment How to access health informa tion online Indication:BMI 33.0-33.9,adult Start:11-Jan-2020 Instruction Type:Patient Education How to access health informa tion online - Detail Indication:BMI 33.0-33.9,adult Start:11-Jan-2020 Instruction Type:Patient Education Patient Instructions Indication:BMI 33.0-33.9,adult Start:11-Jan-2020 Instruction Type:Provider Instructions for Treatment How to access health informa tion online Indication:BMI 34.0-34.9,adult Start:24-Dec-2019 Instruction Type:Patient Education How to access health informa tion online - Detail Indication:BMI 34.0-34.9,adult Start:24-Dec-2019 Instruction Type:Patient Education Patient Instructions Indication:BMI 34.0-34.9,adult Start:24-Dec-2019 Instruction Type:Provider Instructions for Treatment How to access health informa tion online Indication:BMI 31.0-31.9,adult Start:13-Apr-2019 Instruction Type:Patient Education How to access health informa tion online - Detail Indication:BMI 31.0-31.9,adult Start:13-Apr-2019 Instruction Type:Patient Education Patient Instructions Indication:BMI 31.0-31.9,adult Start:13-Apr-2019 Instruction Type:Provider Instructions for Treatment How to access health informa tion online Indication:Non-smoker Start:12-Jan-2019 Instruction Type:Patient Education How to access health informa tion online - Detail Indication:Non-smoker Start:12-Jan-2019 Instruction Type:Patient Education Patient Instructions Indication:Non-smoker Start:12-Jan-2019 Instruction Type:Provider Instructions for Treatment How to access health informa tion online Indication:Non-smoker Start:22-Dec-2018 Instruction Type:Patient Education How to access health informa tion online - Detail Indication:Non-smoker Start:22-Dec-2018 Instruction Type:Patient Education Patient Instructions Indication:Non-smoker Start:22-Dec-2018 Instruction Type:Provider Instructions for Treatment How to access health informa tion online Indication:Smoker Start:08-Dec-2018 Instruction Type:Patient Education How to access health informa tion online - Detail Indication:Smoker Start:08-Dec-2018 Instruction Type:Patient Education Patient Instructions Indication:Smoker Start:08-Dec-2018 Instruction Type:Provider Instructions for Treatment How to access health informa tion online Indication:BMI 30.0-30.9,adult Start:01-Dec-2018 Instruction Type:Patient Education How to access health informa tion online - Detail Indication:BMI 30.0-30.9,adult Start:01-Dec-2018 Instruction Type:Patient Education Patient Instructions Indication:BMI 30.0-30.9,adult Start:01-Dec-2018 Instruction Type:Provider Instructions for Treatment How to access health informa tion online Indication:Smoker Start:31-Oct-2018 Instruction Type:Patient Education How to access health informa tion online - Detail Indication:Smoker Start:31-Oct-2018 Instruction Type:Patient Education Patient Instructions Indication:Smoker Start:31-Oct-2018 Instruction Type:Provider Instructions for Treatment How to access health informa tion online Indication:BMI 34.0-34.9,adult Start:28-Oct-2018 Instruction Type:Patient Education How to access health informa tion online - Detail Indication:BMI 34.0-34.9,adult Start:28-Oct-2018 Instruction Type:Patient Education Patient Instructions Indication:BMI 34.0-34.9,adult Start:28-Oct-2018 Instruction Type:Provider Instructions for Treatment How to access health informa tion online Indication:Smoker Start:11-Sep-2018 Instruction Type:Patient Education How to access health informa tion online - Detail Indication:Smoker Start:11-Sep-2018 Instruction Type:Patient Education Patient Instructions Indication:Smoker Start:11-Sep-2018 Instruction Type:Provider Instructions for Treatment How to access health informa tion online Indication:CAD, multiple vessel Start:26-Aug-2018 Instruction Type:Patient Education How to access health informa tion online - Detail Indication:CAD, multiple vessel Start:26-Aug-2018 Instruction Type:Patient Education [facility]; [facility] Work Phone: Instructions* Name Dates Details Patient Instructions Indication:BMI 32.0-32.9,adult Start:28-Jun-2022 Instruction Type:Provider Instructions for Treatment How to Access Health Informa tion Online using Patient Portal and [employer]rd [employer] Apps Indication:BMI 32.0-32.9,adult Start:28-Jun-2022 Instruction Type:Patient Education Patient Instructions Indication:Smoker Start:06-Jun-2022 Instruction Type:Provider Instructions for Treatment How to Access Health Informa tion Online using Patient Portal and [employer]rd [employer] Apps Indication:Smoker Start:06-Jun-2022 Instruction Type:Patient Education Patient Instructions Indication:Type II diabetes mellitus, well controlled Start:05-Mar-2022 Instruction Type:Provider Instructions for Treatment How to Access Health Informa tion Online using Patient Portal and [employer]rd [employer] Apps Indication:Type II diabetes mellitus, well controlled Start:05-Mar-2022 Instruction Type:Patient Education Patient Instructions Indication:Smoker Start:30-Oct-2021 Instruction Type:Provider Instructions for Treatment How to Access Health Informa tion Online using Patient Portal and [employer]rd [employer] Apps Indication:Smoker Start:30-Oct-2021 Instruction Type:Patient Education Patient Instructions Indication:Smoker Start:26-Jun-2021 Instruction Type:Provider Instructions for Treatment How to Access Health Informa tion Online using Patient Portal and [employer]rd [employer] Apps Indication:Smoker Start:26-Jun-2021 Instruction Type:Patient Education Patient Instructions Indication:Smoker Start:21-Dec-2020 Instruction Type:Provider Instructions for Treatment How to Access Health Informa tion Online using Patient Portal and [employer]rd [employer] Apps Indication:Smoker Start:21-Dec-2020 Instruction Type:Patient Education How to access health informa tion online Indication:Smoker Start:02-May-2020 Instruction Type:Patient Education How to access health informa tion online - Detail Indication:Smoker Start:02-May-2020 Instruction Type:Patient Education Patient Instructions Indication:Smoker Start:02-May-2020 Instruction Type:Provider Instructions for Treatment How to access health informa tion online Indication:BMI 33.0-33.9,adult Start:25-Apr-2020 Instruction Type:Patient Education How to access health informa tion online - Detail Indication:BMI 33.0-33.9,adult Start:25-Apr-2020 Instruction Type:Patient Education Patient Instructions Indication:BMI 33.0-33.9,adult Start:25-Apr-2020 Instruction Type:Provider Instructions for Treatment How to access health informa tion online Indication:BMI 32.0-32.9,adult Start:01-Feb-2020 Instruction Type:Patient Education How to access health informa tion online - Detail Indication:BMI 32.0-32.9,adult Start:01-Feb-2020 Instruction Type:Patient Education Patient Instructions Indication:BMI 32.0-32.9,adult Start:01-Feb-2020 Instruction Type:Provider Instructions for Treatment How to access health informa tion online Indication:BMI 33.0-33.9,adult Start:11-Jan-2020 Instruction Type:Patient Education How to access health informa tion online - Detail Indication:BMI 33.0-33.9,adult Start:11-Jan-2020 Instruction Type:Patient Education Patient Instructions Indication:BMI 33.0-33.9,adult Start:11-Jan-2020 Instruction Type:Provider Instructions for Treatment How to access health informa tion online Indication:BMI 34.0-34.9,adult Start:24-Dec-2019 Instruction Type:Patient Education How to access health informa tion online - Detail Indication:BMI 34.0-34.9,adult Start:24-Dec-2019 Instruction Type:Patient Education Patient Instructions Indication:BMI 34.0-34.9,adult Start:24-Dec-2019 Instruction Type:Provider Instructions for Treatment How to access health informa tion online Indication:BMI 31.0-31.9,adult Start:13-Apr-2019 Instruction Type:Patient Education How to access health informa tion online - Detail Indication:BMI 31.0-31.9,adult Start:13-Apr-2019 Instruction Type:Patient Education Patient Instructions Indication:BMI 31.0-31.9,adult Start:13-Apr-2019 Instruction Type:Provider Instructions for Treatment How to access health informa tion online Indication:Non-smoker Start:12-Jan-2019 Instruction Type:Patient Education How to access health informa tion online - Detail Indication:Non-smoker Start:12-Jan-2019 Instruction Type:Patient Education Patient Instructions Indication:Non-smoker Start:12-Jan-2019 Instruction Type:Provider Instructions for Treatment How to access health informa tion online Indication:Non-smoker Start:22-Dec-2018 Instruction Type:Patient Education How to access health informa tion online - Detail Indication:Non-smoker Start:22-Dec-2018 Instruction Type:Patient Education Patient Instructions Indication:Non-smoker Start:22-Dec-2018 Instruction Type:Provider Instructions for Treatment How to access health informa tion online Indication:Smoker Start:08-Dec-2018 Instruction Type:Patient Education How to access health informa tion online - Detail Indication:Smoker Start:08-Dec-2018 Instruction Type:Patient Education Patient Instructions Indication:Smoker Start:08-Dec-2018 Instruction Type:Provider Instructions for Treatment How to access health informa tion online Indication:BMI 30.0-30.9,adult Start:01-Dec-2018 Instruction Type:Patient Education How to access health informa tion online - Detail Indication:BMI 30.0-30.9,adult Start:01-Dec-2018 Instruction Type:Patient Education Patient Instructions Indication:BMI 30.0-30.9,adult Start:01-Dec-2018 Instruction Type:Provider Instructions for Treatment How to access health informa tion online Indication:Smoker Start:31-Oct-2018 Instruction Type:Patient Education How to access health informa tion online - Detail Indication:Smoker Start:31-Oct-2018 Instruction Type:Patient Education Patient Instructions Indication:Smoker Start:31-Oct-2018 Instruction Type:Provider Instructions for Treatment How to access health informa tion online Indication:BMI 34.0-34.9,adult Start:28-Oct-2018 Instruction Type:Patient Education How to access health informa tion online - Detail Indication:BMI 34.0-34.9,adult Start:28-Oct-2018 Instruction Type:Patient Education Patient Instructions Indication:BMI 34.0-34.9,adult Start:28-Oct-2018 Instruction Type:Provider Instructions for Treatment How to access health informa tion online Indication:Smoker Start:11-Sep-2018 Instruction Type:Patient Education How to access health informa tion online - Detail Indication:Smoker Start:11-Sep-2018 Instruction Type:Patient Education Patient Instructions Indication:Smoker Start:11-Sep-2018 Instruction Type:Provider Instructions for Treatment How to access health informa tion online Indication:CAD, multiple vessel Start:26-Aug-2018 Instruction Type:Patient Education How to access health informa tion online - Detail Indication:CAD, multiple vessel Start:26-Aug-2018 Instruction Type:Patient Education [facility]; [facility] Work Phone: Instructions* Name Dates Details How to Access Health Informa tion Online using Patient Portal and [employer]rd [employer] Apps Indication:BMI 32.0-32.9,adult Start:27-Sep-2022 Instruction Type:Patient Education Patient Instructions Indication:BMI 32.0-32.9,adult Start:27-Sep-2022 Instruction Type:Provider Instructions for Treatment Patient Instructions Indication:BMI 32.0-32.9,adult Start:28-Jun-2022 Instruction Type:Provider Instructions for Treatment How to Access Health Informa tion Online using Patient Portal and [employer]rd [employer] Apps Indication:BMI 32.0-32.9,adult Start:28-Jun-2022 Instruction Type:Patient Education Patient Instructions Indication:Smoker Start:06-Jun-2022 Instruction Type:Provider Instructions for Treatment How to Access Health Informa tion Online using Patient Portal and [employer]rd [employer] Apps Indication:Smoker Start:06-Jun-2022 Instruction Type:Patient Education Patient Instructions Indication:Type II diabetes mellitus, well controlled Start:05-Mar-2022 Instruction Type:Provider Instructions for Treatment How to Access Health Informa tion Online using Patient Portal and [employer]rd [employer] Apps Indication:Type II diabetes mellitus, well controlled Start:05-Mar-2022 Instruction Type:Patient Education Patient Instructions Indication:Smoker Start:30-Oct-2021 Instruction Type:Provider Instructions for Treatment How to Access Health Informa tion Online using Patient Portal and [employer] Apps Indication:Smoker Start:30-Oct-2021 Instruction Type:Patient Education Patient Instructions Indication:Smoker Start:26-Jun-2021 Instruction Type:Provider Instructions for Treatment How to Access Health Informa tion Online using Patient Portal and [employer] Apps Indication:Smoker Start:26-Jun-2021 Instruction Type:Patient Education Patient Instructions Indication:Smoker Start:21-Dec-2020 Instruction Type:Provider Instructions for Treatment How to Access Health Informa tion Online using Patient Portal and [employer] Apps Indication:Smoker Start:21-Dec-2020 Instruction Type:Patient Education How to access health informa tion online Indication:Smoker Start:02-May-2020 Instruction Type:Patient Education How to access health informa tion online - Detail Indication:Smoker Start:02-May-2020 Instruction Type:Patient Education Patient Instructions Indication:Smoker Start:02-May-2020 Instruction Type:Provider Instructions for Treatment How to access health informa tion online Indication:BMI 33.0-33.9,adult Start:25-Apr-2020 Instruction Type:Patient Education How to access health informa tion online - Detail Indication:BMI 33.0-33.9,adult Start:25-Apr-2020 Instruction Type:Patient Education Patient Instructions Indication:BMI 33.0-33.9,adult Start:25-Apr-2020 Instruction Type:Provider Instructions for Treatment How to access health informa tion online Indication:BMI 32.0-32.9,adult Start:01-Feb-2020 Instruction Type:Patient Education How to access health informa tion online - Detail Indication:BMI 32.0-32.9,adult Start:01-Feb-2020 Instruction Type:Patient Education Patient Instructions Indication:BMI 32.0-32.9,adult Start:01-Feb-2020 Instruction Type:Provider Instructions for Treatment How to access health informa tion online Indication:BMI 33.0-33.9,adult Start:11-Jan-2020 Instruction Type:Patient Education How to access health informa tion online - Detail Indication:BMI 33.0-33.9,adult Start:11-Jan-2020 Instruction Type:Patient Education Patient Instructions Indication:BMI 33.0-33.9,adult Start:11-Jan-2020 Instruction Type:Provider Instructions for Treatment How to access health informa tion online Indication:BMI 34.0-34.9,adult Start:24-Dec-2019 Instruction Type:Patient Education How to access health informa tion online - Detail Indication:BMI 34.0-34.9,adult Start:24-Dec-2019 Instruction Type:Patient Education Patient Instructions Indication:BMI 34.0-34.9,adult Start:24-Dec-2019 Instruction Type:Provider Instructions for Treatment How to access health informa tion online Indication:BMI 31.0-31.9,adult Start:13-Apr-2019 Instruction Type:Patient Education How to access health informa tion online - Detail Indication:BMI 31.0-31.9,adult Start:13-Apr-2019 Instruction Type:Patient Education Patient Instructions Indication:BMI 31.0-31.9,adult Start:13-Apr-2019 Instruction Type:Provider Instructions for Treatment How to access health informa tion online Indication:Non-smoker Start:12-Jan-2019 Instruction Type:Patient Education How to access health informa tion online - Detail Indication:Non-smoker Start:12-Jan-2019 Instruction Type:Patient Education Patient Instructions Indication:Non-smoker Start:12-Jan-2019 Instruction Type:Provider Instructions for Treatment How to access health informa tion online Indication:Non-smoker Start:22-Dec-2018 Instruction Type:Patient Education How to access health informa tion online - Detail Indication:Non-smoker Start:22-Dec-2018 Instruction Type:Patient Education Patient Instructions Indication:Non-smoker Start:22-Dec-2018 Instruction Type:Provider Instructions for Treatment How to access health informa tion online Indication:Smoker Start:08-Dec-2018 Instruction Type:Patient Education How to access health informa tion online - Detail Indication:Smoker Start:08-Dec-2018 Instruction Type:Patient Education Patient Instructions Indication:Smoker Start:08-Dec-2018 Instruction Type:Provider Instructions for Treatment How to access health informa tion online Indication:BMI 30.0-30.9,adult Start:01-Dec-2018 Instruction Type:Patient Education How to access health informa tion online - Detail Indication:BMI 30.0-30.9,adult Start:01-Dec-2018 Instruction Type:Patient Education Patient Instructions Indication:BMI 30.0-30.9,adult Start:01-Dec-2018 Instruction Type:Provider Instructions for Treatment How to access health informa tion online Indication:Smoker Start:31-Oct-2018 Instruction Type:Patient Education How to access health informa tion online - Detail Indication:Smoker Start:31-Oct-2018 Instruction Type:Patient Education Patient Instructions Indication:Smoker Start:31-Oct-2018 Instruction Type:Provider Instructions for Treatment How to access health informa tion online Indication:BMI 34.0-34.9,adult Start:28-Oct-2018 Instruction Type:Patient Education How to access health informa tion online - Detail Indication:BMI 34.0-34.9,adult Start:28-Oct-2018 Instruction Type:Patient Education Patient Instructions Indication:BMI 34.0-34.9,adult Start:28-Oct-2018 Instruction Type:Provider Instructions for Treatment How to access health informa tion online Indication:Smoker Start:11-Sep-2018 Instruction Type:Patient Education How to access health informa tion online - Detail Indication:Smoker Start:11-Sep-2018 Instruction Type:Patient Education Patient Instructions Indication:Smoker Start:11-Sep-2018 Instruction Type:Provider Instructions for Treatment How to access health informa tion online Indication:CAD, multiple vessel Start:26-Aug-2018 Instruction Type:Patient Education How to access health informa tion online - Detail Indication:CAD, multiple vessel Start:26-Aug-2018 Instruction Type:Patient Education [facility]; [facility] Work Phone: Instructions* Name Dates Details How to Access Health Informa tion Online using Patient Portal and [employer]rd [employer] Apps Indication:BMI 32.0-32.9,adult Start:27-Sep-2022 Instruction Type:Patient Education Patient Instructions Indication:BMI 32.0-32.9,adult Start:27-Sep-2022 Instruction Type:Provider Instructions for Treatment Patient Instructions Indication:BMI 32.0-32.9,adult Start:28-Jun-2022 Instruction Type:Provider Instructions for Treatment How to Access Health Informa tion Online using Patient Portal and [employer]rd [employer] Apps Indication:BMI 32.0-32.9,adult Start:28-Jun-2022 Instruction Type:Patient Education Patient Instructions Indication:Smoker Start:06-Jun-2022 Instruction Type:Provider Instructions for Treatment How to Access Health Informa tion Online using Patient Portal and [employer]rd [employer] Apps Indication:Smoker Start:06-Jun-2022 Instruction Type:Patient Education Patient Instructions Indication:Type II diabetes mellitus, well controlled Start:05-Mar-2022 Instruction Type:Provider Instructions for Treatment How to Access Health Informa tion Online using Patient Portal and [employer]rd [employer] Apps Indication:Type II diabetes mellitus, well controlled Start:05-Mar-2022 Instruction Type:Patient Education Patient Instructions Indication:Smoker Start:30-Oct-2021 Instruction Type:Provider Instructions for Treatment How to Access Health Informa tion Online using Patient Portal and [employer]rd [employer] Apps Indication:Smoker Start:30-Oct-2021 Instruction Type:Patient Education Patient Instructions Indication:Smoker Start:26-Jun-2021 Instruction Type:Provider Instructions for Treatment How to Access Health Informa tion Online using Patient Portal and [employer]rd [employer] Apps Indication:Smoker Start:26-Jun-2021 Instruction Type:Patient Education Patient Instructions Indication:Smoker Start:21-Dec-2020 Instruction Type:Provider Instructions for Treatment How to Access Health Informa tion Online using Patient Portal and [employer]rd [employer] Apps Indication:Smoker Start:21-Dec-2020 Instruction Type:Patient Education How to access health informa tion online Indication:Smoker Start:02-May-2020 Instruction Type:Patient Education How to access health informa tion online - Detail Indication:Smoker Start:02-May-2020 Instruction Type:Patient Education Patient Instructions Indication:Smoker Start:02-May-2020 Instruction Type:Provider Instructions for Treatment How to access health informa tion online Indication:BMI 33.0-33.9,adult Start:25-Apr-2020 Instruction Type:Patient Education How to access health informa tion online - Detail Indication:BMI 33.0-33.9,adult Start:25-Apr-2020 Instruction Type:Patient Education Patient Instructions Indication:BMI 33.0-33.9,adult Start:25-Apr-2020 Instruction Type:Provider Instructions for Treatment How to access health informa tion online Indication:BMI 32.0-32.9,adult Start:01-Feb-2020 Instruction Type:Patient Education How to access health informa tion online - Detail Indication:BMI 32.0-32.9,adult Start:01-Feb-2020 Instruction Type:Patient Education Patient Instructions Indication:BMI 32.0-32.9,adult Start:01-Feb-2020 Instruction Type:Provider Instructions for Treatment How to access health informa tion online Indication:BMI 33.0-33.9,adult Start:11-Jan-2020 Instruction Type:Patient Education How to access health informa tion online - Detail Indication:BMI 33.0-33.9,adult Start:11-Jan-2020 Instruction Type:Patient Education Patient Instructions Indication:BMI 33.0-33.9,adult Start:11-Jan-2020 Instruction Type:Provider Instructions for Treatment How to access health informa tion online Indication:BMI 34.0-34.9,adult Start:24-Dec-2019 Instruction Type:Patient Education How to access health informa tion online - Detail Indication:BMI 34.0-34.9,adult Start:24-Dec-2019 Instruction Type:Patient Education Patient Instructions Indication:BMI 34.0-34.9,adult Start:24-Dec-2019 Instruction Type:Provider Instructions for Treatment How to access health informa tion online Indication:BMI 31.0-31.9,adult Start:13-Apr-2019 Instruction Type:Patient Education How to access health informa tion online - Detail Indication:BMI 31.0-31.9,adult Start:13-Apr-2019 Instruction Type:Patient Education Patient Instructions Indication:BMI 31.0-31.9,adult Start:13-Apr-2019 Instruction Type:Provider Instructions for Treatment How to access health informa tion online Indication:Non-smoker Start:12-Jan-2019 Instruction Type:Patient Education How to access health informa tion online - Detail Indication:Non-smoker Start:12-Jan-2019 Instruction Type:Patient Education Patient Instructions Indication:Non-smoker Start:12-Jan-2019 Instruction Type:Provider Instructions for Treatment How to access health informa tion online Indication:Non-smoker Start:22-Dec-2018 Instruction Type:Patient Education How to access health informa tion online - Detail Indication:Non-smoker Start:22-Dec-2018 Instruction Type:Patient Education Patient Instructions Indication:Non-smoker Start:22-Dec-2018 Instruction Type:Provider Instructions for Treatment How to access health informa tion online Indication:Smoker Start:08-Dec-2018 Instruction Type:Patient Education How to access health informa tion online - Detail Indication:Smoker Start:08-Dec-2018 Instruction Type:Patient Education Patient Instructions Indication:Smoker Start:08-Dec-2018 Instruction Type:Provider Instructions for Treatment How to access health informa tion online Indication:BMI 30.0-30.9,adult Start:01-Dec-2018 Instruction Type:Patient Education How to access health informa tion online - Detail Indication:BMI 30.0-30.9,adult Start:01-Dec-2018 Instruction Type:Patient Education Patient Instructions Indication:BMI 30.0-30.9,adult Start:01-Dec-2018 Instruction Type:Provider Instructions for Treatment How to access health informa tion online Indication:Smoker Start:31-Oct-2018 Instruction Type:Patient Education How to access health informa tion online - Detail Indication:Smoker Start:31-Oct-2018 Instruction Type:Patient Education Patient Instructions Indication:Smoker Start:31-Oct-2018 Instruction Type:Provider Instructions for Treatment How to access health informa tion online Indication:BMI 34.0-34.9,adult Start:28-Oct-2018 Instruction Type:Patient Education How to access health informa tion online - Detail Indication:BMI 34.0-34.9,adult Start:28-Oct-2018 Instruction Type:Patient Education Patient Instructions Indication:BMI 34.0-34.9,adult Start:28-Oct-2018 Instruction Type:Provider Instructions for Treatment How to access health informa tion online Indication:Smoker Start:11-Sep-2018 Instruction Type:Patient Education How to access health informa tion online - Detail Indication:Smoker Start:11-Sep-2018 Instruction Type:Patient Education Patient Instructions Indication:Smoker Start:11-Sep-2018 Instruction Type:Provider Instructions for Treatment How to access health informa tion online Indication:CAD, multiple vessel Start:26-Aug-2018 Instruction Type:Patient Education How to access health informa tion online - Detail Indication:CAD, multiple vessel Start:26-Aug-2018 Instruction Type:Patient Education [facility]; [facility] Work Phone: Instructions* Name Dates Details cardiovascular counseling Indication:Colon cancer screening (Renamed from Encounter for screening for malignant neoplasm of colon) Start:30-Jan-2023 Instruction Type:Provider Instructions for Treatment How to Access Health Informa tion Online using Patient Portal and [employer]rd [employer] Apps Indication:Smoker Start:30-Jan-2023 Instruction Type:Patient Education Patient Instructions Indication:Smoker Start:30-Jan-2023 Instruction Type:Provider Instructions for Treatment Patient Instructions Indication:Smoker Start:31-Dec-2022 Instruction Type:Provider Instructions for Treatment How to Access Health Informa tion Online using Patient Portal and [employer]rd [employer] Apps Indication:Smoker Start:31-Dec-2022 Instruction Type:Patient Education How to Access Health Informa tion Online using Patient Portal and [employer]rd [employer] Apps Indication:BMI 32.0-32.9,adult Start:27-Sep-2022 Instruction Type:Patient Education Patient Instructions Indication:BMI 32.0-32.9,adult Start:27-Sep-2022 Instruction Type:Provider Instructions for Treatment Patient Instructions Indication:BMI 32.0-32.9,adult Start:28-Jun-2022 Instruction Type:Provider Instructions for Treatment How to Access Health Informa tion Online using Patient Portal and [employer]rd [employer] Apps Indication:BMI 32.0-32.9,adult Start:28-Jun-2022 Instruction Type:Patient Education Patient Instructions Indication:Smoker Start:06-Jun-2022 Instruction Type:Provider Instructions for Treatment How to Access Health Informa tion Online using Patient Portal and 3rd [employer] Apps Indication:Smoker Start:06-Jun-2022 Instruction Type:Patient Education Patient Instructions Indication:Type II diabetes mellitus, well controlled Start:05-Mar-2022 Instruction Type:Provider Instructions for Treatment How to Access Health Informa tion Online using Patient Portal and 3rd [employer] Apps Indication:Type II diabetes mellitus, well controlled Start:05-Mar-2022 Instruction Type:Patient Education Patient Instructions Indication:Smoker Start:30-Oct-2021 Instruction Type:Provider Instructions for Treatment How to Access Health Informa tion Online using Patient Portal and [employer]rd [employer] Apps Indication:Smoker Start:30-Oct-2021 Instruction Type:Patient Education Patient Instructions Indication:Smoker Start:26-Jun-2021 Instruction Type:Provider Instructions for Treatment How to Access Health Informa tion Online using Patient Portal and [employer]rd [employer] Apps Indication:Smoker Start:26-Jun-2021 Instruction Type:Patient Education Patient Instructions Indication:Smoker Start:21-Dec-2020 Instruction Type:Provider Instructions for Treatment How to Access Health Informa tion Online using Patient Portal and [employer]rd [employer] Apps Indication:Smoker Start:21-Dec-2020 Instruction Type:Patient Education How to access health informa tion online Indication:Smoker Start:02-May-2020 Instruction Type:Patient Education How to access health informa tion online - Detail Indication:Smoker Start:02-May-2020 Instruction Type:Patient Education Patient Instructions Indication:Smoker Start:02-May-2020 Instruction Type:Provider Instructions for Treatment How to access health informa tion online Indication:BMI 33.0-33.9,adult Start:25-Apr-2020 Instruction Type:Patient Education How to access health informa tion online - Detail Indication:BMI 33.0-33.9,adult Start:25-Apr-2020 Instruction Type:Patient Education Patient Instructions Indication:BMI 33.0-33.9,adult Start:25-Apr-2020 Instruction Type:Provider Instructions for Treatment How to access health informa tion online Indication:BMI 32.0-32.9,adult Start:01-Feb-2020 Instruction Type:Patient Education How to access health informa tion online - Detail Indication:BMI 32.0-32.9,adult Start:01-Feb-2020 Instruction Type:Patient Education Patient Instructions Indication:BMI 32.0-32.9,adult Start:01-Feb-2020 Instruction Type:Provider Instructions for Treatment How to access health informa tion online Indication:BMI 33.0-33.9,adult Start:11-Jan-2020 Instruction Type:Patient Education How to access health informa tion online - Detail Indication:BMI 33.0-33.9,adult Start:11-Jan-2020 Instruction Type:Patient Education Patient Instructions Indication:BMI 33.0-33.9,adult Start:11-Jan-2020 Instruction Type:Provider Instructions for Treatment How to access health informa tion online Indication:BMI 34.0-34.9,adult Start:24-Dec-2019 Instruction Type:Patient Education How to access health informa tion online - Detail Indication:BMI 34.0-34.9,adult Start:24-Dec-2019 Instruction Type:Patient Education Patient Instructions Indication:BMI 34.0-34.9,adult Start:24-Dec-2019 Instruction Type:Provider Instructions for Treatment How to access health informa tion online Indication:BMI 31.0-31.9,adult Start:13-Apr-2019 Instruction Type:Patient Education How to access health informa tion online - Detail Indication:BMI 31.0-31.9,adult Start:13-Apr-2019 Instruction Type:Patient Education Patient Instructions Indication:BMI 31.0-31.9,adult Start:13-Apr-2019 Instruction Type:Provider Instructions for Treatment How to access health informa tion online Indication:Non-smoker Start:12-Jan-2019 Instruction Type:Patient Education How to access health informa tion online - Detail Indication:Non-smoker Start:12-Jan-2019 Instruction Type:Patient Education Patient Instructions Indication:Non-smoker Start:12-Jan-2019 Instruction Type:Provider Instructions for Treatment How to access health informa tion online Indication:Non-smoker Start:22-Dec-2018 Instruction Type:Patient Education How to access health informa tion online - Detail Indication:Non-smoker Start:22-Dec-2018 Instruction Type:Patient Education Patient Instructions Indication:Non-smoker Start:22-Dec-2018 Instruction Type:Provider Instructions for Treatment How to access health informa tion online Indication:Smoker Start:08-Dec-2018 Instruction Type:Patient Education How to access health informa tion online - Detail Indication:Smoker Start:08-Dec-2018 Instruction Type:Patient Education Patient Instructions Indication:Smoker Start:08-Dec-2018 Instruction Type:Provider Instructions for Treatment How to access health informa tion online Indication:BMI 30.0-30.9,adult Start:01-Dec-2018 Instruction Type:Patient Education How to access health informa tion online - Detail Indication:BMI 30.0-30.9,adult Start:01-Dec-2018 Instruction Type:Patient Education Patient Instructions Indication:BMI 30.0-30.9,adult Start:01-Dec-2018 Instruction Type:Provider Instructions for Treatment How to access health informa tion online Indication:Smoker Start:31-Oct-2018 Instruction Type:Patient Education How to access health informa tion online - Detail Indication:Smoker Start:31-Oct-2018 Instruction Type:Patient Education Patient Instructions Indication:Smoker Start:31-Oct-2018 Instruction Type:Provider Instructions for Treatment How to access health informa tion online Indication:BMI 34.0-34.9,adult Start:28-Oct-2018 Instruction Type:Patient Education How to access health informa tion online - Detail Indication:BMI 34.0-34.9,adult Start:28-Oct-2018 Instruction Type:Patient Education Patient Instructions Indication:BMI 34.0-34.9,adult Start:28-Oct-2018 Instruction Type:Provider Instructions for Treatment How to access health informa tion online Indication:Smoker Start:11-Sep-2018 Instruction Type:Patient Education How to access health informa tion online - Detail Indication:Smoker Start:11-Sep-2018 Instruction Type:Patient Education Patient Instructions Indication:Smoker Start:11-Sep-2018 Instruction Type:Provider Instructions for Treatment How to access health informa tion online Indication:CAD, multiple vessel Start:26-Aug-2018 Instruction Type:Patient Education How to access health informa tion online - Detail Indication:CAD, multiple vessel Start:26-Aug-2018 Instruction Type:Patient Education [facility]; [facility] Work Phone: Instructions* Name Dates Details cardiovascular counseling Indication:Colon cancer screening (Renamed from Encounter for screening for malignant neoplasm of colon) Start:30-Jan-2023 Instruction Type:Provider Instructions for Treatment How to Access Health Informa tion Online using Patient Portal and [employer]rd [employer] Apps Indication:Smoker Start:30-Jan-2023 Instruction Type:Patient Education Patient Instructions Indication:Smoker Start:30-Jan-2023 Instruction Type:Provider Instructions for Treatment Patient Instructions Indication:Smoker Start:31-Dec-2022 Instruction Type:Provider Instructions for Treatment How to Access Health Informa tion Online using Patient Portal and [employer]rd [employer] Apps Indication:Smoker Start:31-Dec-2022 Instruction Type:Patient Education How to Access Health Informa tion Online using Patient Portal and [employer]rd [employer] Apps Indication:BMI 32.0-32.9,adult Start:27-Sep-2022 Instruction Type:Patient Education Patient Instructions Indication:BMI 32.0-32.9,adult Start:27-Sep-2022 Instruction Type:Provider Instructions for Treatment Patient Instructions Indication:BMI 32.0-32.9,adult Start:28-Jun-2022 Instruction Type:Provider Instructions for Treatment How to Access Health Informa tion Online using Patient Portal and [employer]rd [employer] Apps Indication:BMI 32.0-32.9,adult Start:28-Jun-2022 Instruction Type:Patient Education Patient Instructions Indication:Smoker Start:06-Jun-2022 Instruction Type:Provider Instructions for Treatment How to Access Health Informa tion Online using Patient Portal and [employer]rd [employer] Apps Indication:Smoker Start:06-Jun-2022 Instruction Type:Patient Education Patient Instructions Indication:Type II diabetes mellitus, well controlled Start:05-Mar-2022 Instruction Type:Provider Instructions for Treatment How to Access Health Informa tion Online using Patient Portal and [employer]rd [employer] Apps Indication:Type II diabetes mellitus, well controlled Start:05-Mar-2022 Instruction Type:Patient Education Patient Instructions Indication:Smoker Start:30-Oct-2021 Instruction Type:Provider Instructions for Treatment How to Access Health Informa tion Online using Patient Portal and [employer]rd [employer] Apps Indication:Smoker Start:30-Oct-2021 Instruction Type:Patient Education Patient Instructions Indication:Smoker Start:26-Jun-2021 Instruction Type:Provider Instructions for Treatment How to Access Health Informa tion Online using Patient Portal and [employer]rd [employer] Apps Indication:Smoker Start:26-Jun-2021 Instruction Type:Patient Education Patient Instructions Indication:Smoker Start:21-Dec-2020 Instruction Type:Provider Instructions for Treatment How to Access Health Informa tion Online using Patient Portal and [employer]rd [employer] Apps Indication:Smoker Start:21-Dec-2020 Instruction Type:Patient Education How to access health informa tion online Indication:Smoker Start:02-May-2020 Instruction Type:Patient Education How to access health informa tion online - Detail Indication:Smoker Start:02-May-2020 Instruction Type:Patient Education Patient Instructions Indication:Smoker Start:02-May-2020 Instruction Type:Provider Instructions for Treatment How to access health informa tion online Indication:BMI 33.0-33.9,adult Start:25-Apr-2020 Instruction Type:Patient Education How to access health informa tion online - Detail Indication:BMI 33.0-33.9,adult Start:25-Apr-2020 Instruction Type:Patient Education Patient Instructions Indication:BMI 33.0-33.9,adult Start:25-Apr-2020 Instruction Type:Provider Instructions for Treatment How to access health informa tion online Indication:BMI 32.0-32.9,adult Start:01-Feb-2020 Instruction Type:Patient Education How to access health informa tion online - Detail Indication:BMI 32.0-32.9,adult Start:01-Feb-2020 Instruction Type:Patient Education Patient Instructions Indication:BMI 32.0-32.9,adult Start:01-Feb-2020 Instruction Type:Provider Instructions for Treatment How to access health informa tion online Indication:BMI 33.0-33.9,adult Start:11-Jan-2020 Instruction Type:Patient Education How to access health informa tion online - Detail Indication:BMI 33.0-33.9,adult Start:11-Jan-2020 Instruction Type:Patient Education Patient Instructions Indication:BMI 33.0-33.9,adult Start:11-Jan-2020 Instruction Type:Provider Instructions for Treatment How to access health informa tion online Indication:BMI 34.0-34.9,adult Start:24-Dec-2019 Instruction Type:Patient Education How to access health informa tion online - Detail Indication:BMI 34.0-34.9,adult Start:24-Dec-2019 Instruction Type:Patient Education Patient Instructions Indication:BMI 34.0-34.9,adult Start:24-Dec-2019 Instruction Type:Provider Instructions for Treatment How to access health informa tion online Indication:BMI 31.0-31.9,adult Start:13-Apr-2019 Instruction Type:Patient Education How to access health informa tion online - Detail Indication:BMI 31.0-31.9,adult Start:13-Apr-2019 Instruction Type:Patient Education Patient Instructions Indication:BMI 31.0-31.9,adult Start:13-Apr-2019 Instruction Type:Provider Instructions for Treatment How to access health informa tion online Indication:Non-smoker Start:12-Jan-2019 Instruction Type:Patient Education How to access health informa tion online - Detail Indication:Non-smoker Start:12-Jan-2019 Instruction Type:Patient Education Patient Instructions Indication:Non-smoker Start:12-Jan-2019 Instruction Type:Provider Instructions for Treatment How to access health informa tion online Indication:Non-smoker Start:22-Dec-2018 Instruction Type:Patient Education How to access health informa tion online - Detail Indication:Non-smoker Start:22-Dec-2018 Instruction Type:Patient Education Patient Instructions Indication:Non-smoker Start:22-Dec-2018 Instruction Type:Provider Instructions for Treatment How to access health informa tion online Indication:Smoker Start:08-Dec-2018 Instruction Type:Patient Education How to access health informa tion online - Detail Indication:Smoker Start:08-Dec-2018 Instruction Type:Patient Education Patient Instructions Indication:Smoker Start:08-Dec-2018 Instruction Type:Provider Instructions for Treatment How to access health informa tion online Indication:BMI 30.0-30.9,adult Start:01-Dec-2018 Instruction Type:Patient Education How to access health informa tion online - Detail Indication:BMI 30.0-30.9,adult Start:01-Dec-2018 Instruction Type:Patient Education Patient Instructions Indication:BMI 30.0-30.9,adult Start:01-Dec-2018 Instruction Type:Provider Instructions for Treatment How to access health informa tion online Indication:Smoker Start:31-Oct-2018 Instruction Type:Patient Education How to access health informa tion online - Detail Indication:Smoker Start:31-Oct-2018 Instruction Type:Patient Education Patient Instructions Indication:Smoker Start:31-Oct-2018 Instruction Type:Provider Instructions for Treatment How to access health informa tion online Indication:BMI 34.0-34.9,adult Start:28-Oct-2018 Instruction Type:Patient Education How to access health informa tion online - Detail Indication:BMI 34.0-34.9,adult Start:28-Oct-2018 Instruction Type:Patient Education Patient Instructions Indication:BMI 34.0-34.9,adult Start:28-Oct-2018 Instruction Type:Provider Instructions for Treatment How to access health informa tion online Indication:Smoker Start:11-Sep-2018 Instruction Type:Patient Education How to access health informa tion online - Detail Indication:Smoker Start:11-Sep-2018 Instruction Type:Patient Education Patient Instructions Indication:Smoker Start:11-Sep-2018 Instruction Type:Provider Instructions for Treatment How to access health informa tion online Indication:CAD, multiple vessel Start:26-Aug-2018 Instruction Type:Patient Education How to access health informa tion online - Detail Indication:CAD, multiple vessel Start:26-Aug-2018 Instruction Type:Patient Education [facility]; [facility] Work Phone: Instructions* Name Dates Details How to Access Health Informa tion Online using Patient Portal and 3rd [employer] Apps Indication:Smoker Start:03-Apr-2023 Instruction Type:Patient Education Patient Instructions Indication:Smoker Start:03-Apr-2023 Instruction Type:Provider Instructions for Treatment cardiovascular counseling Indication:Colon cancer screening (Renamed from Encounter for screening for malignant neoplasm of colon) Start:30-Jan-2023 Instruction Type:Provider Instructions for Treatment How to Access Health Informa tion Online using Patient Portal and 3rd [employer] Apps Indication:Smoker Start:30-Jan-2023 Instruction Type:Patient Education Patient Instructions Indication:Smoker Start:30-Jan-2023 Instruction Type:Provider Instructions for Treatment Patient Instructions Indication:Smoker Start:31-Dec-2022 Instruction Type:Provider Instructions for Treatment How to Access Health Informa tion Online using Patient Portal and [employer]rd [employer] Apps Indication:Smoker Start:31-Dec-2022 Instruction Type:Patient Education How to Access Health Informa tion Online using Patient Portal and [employer]rd [employer] Apps Indication:BMI 32.0-32.9,adult Start:27-Sep-2022 Instruction Type:Patient Education Patient Instructions Indication:BMI 32.0-32.9,adult Start:27-Sep-2022 Instruction Type:Provider Instructions for Treatment Patient Instructions Indication:BMI 32.0-32.9,adult Start:28-Jun-2022 Instruction Type:Provider Instructions for Treatment How to Access Health Informa tion Online using Patient Portal and 3rd [employer] Apps Indication:BMI 32.0-32.9,adult Start:28-Jun-2022 Instruction Type:Patient Education Patient Instructions Indication:Smoker Start:06-Jun-2022 Instruction Type:Provider Instructions for Treatment How to Access Health Informa tion Online using Patient Portal and [employer]rd [employer] Apps Indication:Smoker Start:06-Jun-2022 Instruction Type:Patient Education Patient Instructions Indication:Type II diabetes mellitus, well controlled Start:05-Mar-2022 Instruction Type:Provider Instructions for Treatment How to Access Health Informa tion Online using Patient Portal and 3rd [employer] Apps Indication:Type II diabetes mellitus, well controlled Start:05-Mar-2022 Instruction Type:Patient Education Patient Instructions Indication:Smoker Start:30-Oct-2021 Instruction Type:Provider Instructions for Treatment How to Access Health Informa tion Online using Patient Portal and [employer]rd [employer] Apps Indication:Smoker Start:30-Oct-2021 Instruction Type:Patient Education Patient Instructions Indication:Smoker Start:26-Jun-2021 Instruction Type:Provider Instructions for Treatment How to Access Health Informa tion Online using Patient Portal and [employer]rd [employer] Apps Indication:Smoker Start:26-Jun-2021 Instruction Type:Patient Education Patient Instructions Indication:Smoker Start:21-Dec-2020 Instruction Type:Provider Instructions for Treatment How to Access Health Informa tion Online using Patient Portal and [employer]rd [employer] Apps Indication:Smoker Start:21-Dec-2020 Instruction Type:Patient Education How to access health informa tion online Indication:Smoker Start:02-May-2020 Instruction Type:Patient Education How to access health informa tion online - Detail Indication:Smoker Start:02-May-2020 Instruction Type:Patient Education Patient Instructions Indication:Smoker Start:02-May-2020 Instruction Type:Provider Instructions for Treatment How to access health informa tion online Indication:BMI 33.0-33.9,adult Start:25-Apr-2020 Instruction Type:Patient Education How to access health informa tion online - Detail Indication:BMI 33.0-33.9,adult Start:25-Apr-2020 Instruction Type:Patient Education Patient Instructions Indication:BMI 33.0-33.9,adult Start:25-Apr-2020 Instruction Type:Provider Instructions for Treatment How to access health informa tion online Indication:BMI 32.0-32.9,adult Start:01-Feb-2020 Instruction Type:Patient Education How to access health informa tion online - Detail Indication:BMI 32.0-32.9,adult Start:01-Feb-2020 Instruction Type:Patient Education Patient Instructions Indication:BMI 32.0-32.9,adult Start:01-Feb-2020 Instruction Type:Provider Instructions for Treatment How to access health informa tion online Indication:BMI 33.0-33.9,adult Start:11-Jan-2020 Instruction Type:Patient Education How to access health informa tion online - Detail Indication:BMI 33.0-33.9,adult Start:11-Jan-2020 Instruction Type:Patient Education Patient Instructions Indication:BMI 33.0-33.9,adult Start:11-Jan-2020 Instruction Type:Provider Instructions for Treatment How to access health informa tion online Indication:BMI 34.0-34.9,adult Start:24-Dec-2019 Instruction Type:Patient Education How to access health informa tion online - Detail Indication:BMI 34.0-34.9,adult Start:24-Dec-2019 Instruction Type:Patient Education Patient Instructions Indication:BMI 34.0-34.9,adult Start:24-Dec-2019 Instruction Type:Provider Instructions for Treatment How to access health informa tion online Indication:BMI 31.0-31.9,adult Start:13-Apr-2019 Instruction Type:Patient Education How to access health informa tion online - Detail Indication:BMI 31.0-31.9,adult Start:13-Apr-2019 Instruction Type:Patient Education Patient Instructions Indication:BMI 31.0-31.9,adult Start:13-Apr-2019 Instruction Type:Provider Instructions for Treatment How to access health informa tion online Indication:Non-smoker Start:12-Jan-2019 Instruction Type:Patient Education How to access health informa tion online - Detail Indication:Non-smoker Start:12-Jan-2019 Instruction Type:Patient Education Patient Instructions Indication:Non-smoker Start:12-Jan-2019 Instruction Type:Provider Instructions for Treatment How to access health informa tion online Indication:Non-smoker Start:22-Dec-2018 Instruction Type:Patient Education How to access health informa tion online - Detail Indication:Non-smoker Start:22-Dec-2018 Instruction Type:Patient Education Patient Instructions Indication:Non-smoker Start:22-Dec-2018 Instruction Type:Provider Instructions for Treatment How to access health informa tion online Indication:Smoker Start:08-Dec-2018 Instruction Type:Patient Education How to access health informa tion online - Detail Indication:Smoker Start:08-Dec-2018 Instruction Type:Patient Education Patient Instructions Indication:Smoker Start:08-Dec-2018 Instruction Type:Provider Instructions for Treatment How to access health informa tion online Indication:BMI 30.0-30.9,adult Start:01-Dec-2018 Instruction Type:Patient Education How to access health informa tion online - Detail Indication:BMI 30.0-30.9,adult Start:01-Dec-2018 Instruction Type:Patient Education Patient Instructions Indication:BMI 30.0-30.9,adult Start:01-Dec-2018 Instruction Type:Provider Instructions for Treatment How to access health informa tion online Indication:Smoker Start:31-Oct-2018 Instruction Type:Patient Education How to access health informa tion online - Detail Indication:Smoker Start:31-Oct-2018 Instruction Type:Patient Education Patient Instructions Indication:Smoker Start:31-Oct-2018 Instruction Type:Provider Instructions for Treatment How to access health informa tion online Indication:BMI 34.0-34.9,adult Start:28-Oct-2018 Instruction Type:Patient Education How to access health informa tion online - Detail Indication:BMI 34.0-34.9,adult Start:28-Oct-2018 Instruction Type:Patient Education Patient Instructions Indication:BMI 34.0-34.9,adult Start:28-Oct-2018 Instruction Type:Provider Instructions for Treatment How to access health informa tion online Indication:Smoker Start:11-Sep-2018 Instruction Type:Patient Education How to access health informa tion online - Detail Indication:Smoker Start:11-Sep-2018 Instruction Type:Patient Education Patient Instructions Indication:Smoker Start:11-Sep-2018 Instruction Type:Provider Instructions for Treatment How to access health informa tion online Indication:CAD, multiple vessel Start:26-Aug-2018 Instruction Type:Patient Education How to access health informa tion online - Detail Indication:CAD, multiple vessel Start:26-Aug-2018 Instruction Type:Patient Education [facility]; [facility] Work Phone: progress note Author Hector Hsu [facility] Services Note Date/Time April 16, 2025 9:02am [facility] [address] [place], [place] [address] OFFICE VISIT Date of Service: 04/16/25 MR#: [id number] Acct: [id number] Name: FREDERIC OVALLES Rep #: [id number] : 1960 Provider: Dr. Margaret Hsu MD Age/Sex: 64/M Location: [facility] [place] Status: Signed HPI HPI History of Present Illness Details: This is a 62-year-old gentleman that presents here today for a follow-up cardio oncology visit. He has a history of coronary artery disease with myocardial infarction in 2017 with 2 stents placed at that time.? He had suffered a V. fib arrest. He had 2 stents placed, one was in the proximal left anterior descending artery and the other was in the mid right coronary artery.? He also has a history of hypertension, hyperlipidemia.? He has been diagnosed with chronic myeloid leukemia and has been on Busotinib which he has tolerated well. His echocardiographic findings prior to this demonstrated an ejection fraction of 55% with a global longitudinal strain of 18.1. From a cardiac standpoint, patient is doing well.? His major issue is that he gets diaphoretic very easily and does not know why. He does not have any chest discomfort/heaviness/tightness.? His exercise tolerance is stable for his age.? He does not have any worsening symptoms of shortness of breath. He does get SOB with exertional activity but it would be what he would expect. He denies any PND.? He does not have any orthopnea.? He does not have any symptoms of congestive heart failure.? He does not have any palpitations that he is aware of.? He does not have any lightheadedness or dizziness.? He had a Holter monitor placed which demonstrated an average heart rate of 70 bpm minimum of 65 and max 108 bpm. Carotid ultrasound also did not demonstrate any significant abnormalities. He did undergo a stress test in September 2022 where he exercised 9minutes, at 10.1 metabolic equivalents with no EKG changes or chest discomfort He did undergo some blood flow screening which demonstrated no significant plaque in the carotid arteries. He does not have any lower extremity edema.? He does not have any symptoms of claudication.? His physical exam demonstrated clear lung osuna regular rate and rhythm and no pedal edema. Intake Vital Signs 02/04/25 11:50 04/16/25 08:34 Height 6 ft 6 ft Weight: 243 lb 5 oz 245 lb BMI 33.0 33.2 BP 131/75 H 129/77 H Blood Pressure Location Lt brachial Lt brachial Position Sitting Sitting Respiration 16 16 Pulse 55 L 55 L Pulse Source Monitor Monitor Temp 98.5 F 97.6 F L Temperature Source Temporal Artery Temporal Artery Pulse Oximetry (%) 96 96 Oxygen Delivery Method room air room air Intake Visit Reasons: 1 Y FU Price Accuracy Supervisor Required: No Accompanied by: Self Is patient in pain?: No Allergies No Known Allergies Allergy (Verified 04/16/25 08:35) Medications ?Medication ?Instructions ?Recorded ?Confirmed ?Type aspirin 81 mg tablet,delayed 81 mg PO DAILY 09/02/18 0 04/16/25 History release carvedilol 6.25 mg tablet 6.25 mg PO BID 09/02/1803/23 History cholecalciferol (vitamin D3) 25 1,000 unit PO DAILY 04/16/25 History mcg (1,000 unit) capsule ramipril 2.5 mg capsule 2.5 mg PO DAILY 09/02/18 History atorvastatin 80 mg tablet 80 mg PO QHS 12/15/19 History vitamin E 200 unit capsule 200 unit PO DAILY 08/25/20 04/16/25 History ascorbic acid (vitamin C) 500 mg 500 mg PO Q12H 04/16/25 History capsule,extended release bosutinib 100 mg tablet 400 mg PO DAILY 11/06/23 History ibuprofen 600 mg tablet 600 mg PO Q6H PRN fever or p ain 12/23/23 04/16/25 Rx #20 tabs fluticasone fur. 100 mcg-umeclid 1 inh inhalation Q24H #60 ea 07/24/24 04/16/25 Rx 62.5 mcg-vilant 25 mcg inhalat.powder (Trelegy Ellipta) gabapentin 300 mg capsule 300 mg PO QDAY 08/03/2403/23 History albuterol sulfate 90 mcg/actuation 2 puff inhalation Q 4H PRN 01/05/25 04/16/25 Rx aerosol inhaler shortness of breath or wheez ing #8.5 grams sulfamethoxazole 800 1 tab PO 3XW #36 TABLETS 11/1304/16/25 Rx mg-trimethoprim 160 mg tablet PFSH Medical History Chronic myeloid leukemia Low back pain 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, right Tobacco use disorder, continuous Encounter for screening for malignant neoplasm of lung in current smoker with 30pack year history or greater Pneumonia Fatigue Near syncope Fracture of great toe, right, open Unspecified injury of right foot, sequela Leukocytosis 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) History of ST elevation myocardial infarction (STEMI) (01/20/17) Hyperlipidemia Essential (primary) hypertension Nicotine dependence Atherosclerosis of coronary artery of [place] heart without angina pectoris Obesity (BMI 30.0-34.9) Hiatal hernia with GERD History of back problems Surgical History Status post laser lithotripsy of ureteral calculus History of bone marrow biopsy (04/13/20) History of bilateral inguinal hernia repair (08/2018) Status post laparoscopic Migue fundoplication (10/15/18) History of coronary artery stent placement (01/20/17) Family History Father Colon cancer Diabetes Heart disease Hypertension CAD (coronary artery disease) Sister Breast cancer Mother CAD (coronary artery disease) Hypertension Heart disease Social History household members: spouse Smoking Status: Current every day smoker tobacco type: cigarettes Tobacco: How many years used: 40 Electronic Cigarette Use: not used second hand exposure: No quit status: considering quitting alcohol intake: current alcohol intake frequency: a few times a week Alcohol type: beer substance use type: does not use well-balanced diet: about half the time uyen/latter-day: Latter Day seatbelt use: always do you feel safe at home: Yes ROS Const Const: Positive for excessive sweating (With minimal exertion ); Negative for fatigue, body ache, fever(s) or chills ENT ENT: Negative for dizziness or Nosebleed/epistaxis Cardio Chest Pain: No Palpitations: No Edema: None Muscle aches with walking: None Resp Respiratory: Negative for SOB with activity, SOB at rest, SOB orthopnea\\SOB lying down, Cough or paroxysmal nocturnal dyspnea GI GI: Negative nausea, bright, red blood in stools, black,tarry stools or loose stools : Negative for hematuria or frequent nighttime urination/ nocturia Musc Musc: Negative for muscle aches/ myalgia Skin Skin: Negative non-healing lesions Neuro Neuro: Negative for dizziness, lightheadedness, near syncope, syncope or orthostatic symptoms Endo Endo: Positive for excessive sweating (With minimal exertion ); Negative for fatigue Cardiology Exam Const Appearance: cooperative, healthy appearing, no acute distress, well developed and well groomed Nutritional Appearance: average body habitus and well nourished Orientation: alert, awake and oriented x3 Head Head: normal to inspection, normocephalic and atraumatic Ears: hearing grossly normal bilaterally and external ears normal Nose: external nose normal, nares normal, nasal mucous membranes and turbinates normal, septum normal and no nasal discharge Face and Sinus: face symmetric Mouth: oral mucosae normal, tongue normal, oropharynx normal and moist mucous membranes Teeth and gingiva: dentition normal Throat: posterior oropharynx normal, tonsils normal and uvula midline Eyes General: appearance normal, both eyes and all related structures Eyelids: eyelids normal Conjunctivae: conjunctivae normal Pupils: PERRL, normal by confrontation and accommodation normal EOM: EOM intact bilaterally Neck Neck: normal visual inspection, trachea midline and no JVD JVD: +5 Carotids: normal carotid upstroke and bounding pulses Chest Chest inspection: normal inspection of the chest, symmetric chest movement and normal respiratory effort Auscultation: Bilateral: Clear to Auscultation Cardio Palpation: normal PMI Rate: regular rate Rhythm: regular rhythm Heart sounds: S1 normal, S2 normal and normal, physiologic split S2; Negative rub, gallop or murmur GI GI: normal to inspection, soft, no hepatosplenomegaly and bowel sounds present Neuro General: patient alert, patient awake, patient oriented x3, gait normal, moves all extremities and no focal sensory deficit Skin Skin: no rashes or lesions noted Extremities Pulses: Normal: Right Femoral Pulse, Left Femoral Pulse, Right Dorsalis Pedis Pulse, Left Dorsalis Pedis Pulse, Right Posterior Tibial Pulse, Left Posterior Tibial Pulse, Right Radial Pulse and Left Radial Pulse Lower Extremity Edema: None: Bilateral Musculoskel Musculoskeletal: No joint tenderness Psych Psychological: normal affect Supplemental Info Supplemental Information Diagnostics: Electrocardiogram Echocardiogram Stress Test Stress Test Nuclear Medicine Chest X-Ray Chest CTA Abdomen/Pelvis CT Carotid Duplex Pulmonary: Pulmonary Function Test Pulmonary Exercise Test Assessment and Plan Assessment and Plan (1) History of coronary artery stent placement: Status: Resolved Comment: PCI-NICA-Mid LAD 4.0 x 20 mm Synergy, NICA-Mid RCA w/ 4.0 x 16mm Synergy 01/20/2017 Plan: He does have a history of coronary artery stenting. He actually is doing quite well and at this time I would not suggest that we make any changes. He will continue with his risk factor modification. I recommend that we perform an exercise myocardial perfusion stress test and depending on the findings further recommendations will be made. (2) Essential (primary) hypertension: Status: Chronic Plan: He has a history of blood pressure elevation but at the moment it is well controlled I would not recommend that we make any other major changes. Recommend that we obtain an echocardiogram. (3) Chronic myeloid leukemia: Status: Chronic Plan: With respect to his chronic myeloid leukemia he appears to be tolerating the above quite well. There do not appear to be any dysrhythmias noted. His last EKG also demonstrated normal sinus rhythm with a rate of 66 bpm and no acute changes. Thank you for allowing me to participate in the care of your patient. Please don't hesitate to call if any issues arise. 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 Jocelin Saunders, DO ~ [facility] Work Phone: Reason for referral (narrative)No reason for referral information availableCh[facility] Work Phone: Summary Purpose Family History No Family History Records FoundUnknown Family Member Name Dates Details Breast Cancer Comments:Sister. Status:Active Colon Cancer Comments:Father. Status:Active Diabetes Mellitus Comments:Father. Status:Active Heart Disease Comments:Mother. Father. Status:Active Hypercholesterolemia Comments:Mother. Father. Status:Active Hypertension Comments:Mother. Father. Status:Active Unknown Family Member Name Dates Details Breast Cancer Comments:Sister. Status:Active Colon Cancer Comments:Father. Status:Active Diabetes Mellitus Comments:Father. Status:Active Heart Disease Comments:Mother. Father. Status:Active Hypercholesterolemia Comments:Mother. Father. Status:Active Hypertension Comments:Mother. Father. Status:Active Unknown Family Member Name Dates Details Breast Cancer Comments:Sister. Status:Active Colon Cancer Comments:Father. Status:Active Diabetes Mellitus Comments:Father. Status:Active Heart Disease Comments:Mother. Father. Status:Active Hypercholesterolemia Comments:Mother. Father. Status:Active Hypertension Comments:Mother. Father. Status:Active Unknown Family Member Name Dates Details Breast Cancer Comments:Sister. Status:Active Colon Cancer Comments:Father. Status:Active Diabetes Mellitus Comments:Father. Status:Active Heart Disease Comments:Mother. Father. Status:Active Hypercholesterolemia Comments:Mother. Father. Status:Active Hypertension Comments:Mother. Father. Status:Active Unknown Family Member Name Dates Details Breast Cancer Comments:Sister. Status:Active Colon Cancer Comments:Father. Status:Active Diabetes Mellitus Comments:Father. Status:Active Heart Disease Comments:Mother. Father. Status:Active Hypercholesterolemia Comments:Mother. Father. Status:Active Hypertension Comments:Mother. Father. Status:Active Unknown Family Member Name Dates Details Breast Cancer Comments:Sister. Status:Active Colon Cancer Comments:Father. Status:Active Diabetes Mellitus Comments:Father. Status:Active Heart Disease Comments:Mother. Father. Status:Active Hypercholesterolemia Comments:Mother. Father. Status:Active Hypertension Comments:Mother. Father. Status:Active Unknown Family Member Name Dates Details Breast Cancer Comments:Sister. Status:Active Colon Cancer Comments:Father. Status:Active Diabetes Mellitus Comments:Father. Status:Active Heart Disease Comments:Mother. Father. Status:Active Hypercholesterolemia Comments:Mother. Father. Status:Active Hypertension Comments:Mother. Father. Status:Active Unknown Family Member Name Dates Details Breast Cancer Comments:Sister. Status:Active Colon Cancer Comments:Father. Status:Active Diabetes Mellitus Comments:Father. Status:Active Heart Disease Comments:Mother. Father. Status:Active Hypercholesterolemia Comments:Mother. Father. Status:Active Hypertension Comments:Mother. Father. Status:Active Unknown Family Member Name Dates Details Breast Cancer Comments:Sister. Status:Active Colon Cancer Comments:Father. Status:Active Diabetes Mellitus Comments:Father. Status:Active Heart Disease Comments:Mother. Father. Status:Active Hypercholesterolemia Comments:Mother. Father. Status:Active Hypertension Comments:Mother. Father. Status:Active Unknown Family Member Name Dates Details Breast Cancer Comments:Sister. Status:Active Colon Cancer Comments:Father. Status:Active Diabetes Mellitus Comments:Father. Status:Active Heart Disease Comments:Mother. Father. Status:Active Hypercholesterolemia Comments:Mother. Father. Status:Active Hypertension Comments:Mother. Father. Status:Active Unknown Family Member Name Dates Details Breast Cancer Comments:Sister. Status:Active Colon Cancer Comments:Father. Status:Active Diabetes Mellitus Comments:Father. Status:Active Heart Disease Comments:Mother. Father. Status:Active Hypercholesterolemia Comments:Mother. Father. Status:Active Hypertension Comments:Mother. Father. Status:Active Unknown Family Member Name Dates Details Breast Cancer Comments:Sister. Status:Active Colon Cancer Comments:Father. Status:Active Diabetes Mellitus Comments:Father. Status:Active Heart Disease Comments:Mother. Father. Status:Active Hypercholesterolemia Comments:Mother. Father. Status:Active Hypertension Comments:Mother. Father. Status:Active Unknown Family Member Name Dates Details Breast Cancer Comments:Sister. Status:Active Colon Cancer Comments:Father. Status:Active Diabetes Mellitus Comments:Father. Status:Active Heart Disease Comments:Mother. Father. Status:Active Hypercholesterolemia Comments:Mother. Father. Status:Active Hypertension Comments:Mother. Father. Status:Active Unknown Family Member Name Dates Details Breast Cancer Comments:Sister. Status:Active Colon Cancer Comments:Father. Status:Active Diabetes Mellitus Comments:Father. Status:Active Heart Disease Comments:Mother. Father. Status:Active Hypercholesterolemia Comments:Mother. Father. Status:Active Hypertension Comments:Mother. Father. Status:Active Unknown Family Member Name Dates Details Breast Cancer Comments:Sister. Status:Active Colon Cancer Comments:Father. Status:Active Diabetes Mellitus Comments:Father. Status:Active Heart Disease Comments:Mother. Father. Status:Active Hypercholesterolemia Comments:Mother. Father. Status:Active Hypertension Comments:Mother. Father. Status:Active Unknown Family Member Name Dates Details Breast Cancer Comments:Sister. Status:Active Colon Cancer Comments:Father. Status:Active Diabetes Mellitus Comments:Father. Status:Active Heart Disease Comments:Mother. Father. Status:Active Hypercholesterolemia Comments:Mother. Father. Status:Active Hypertension Comments:Mother. Father. Status:Active Unknown Family Member Name Dates Details Breast Cancer Comments:Sister. Status:Active Colon Cancer Comments:Father. Status:Active Diabetes Mellitus Comments:Father. Status:Active Heart Disease Comments:Mother. Father. Status:Active Hypercholesterolemia Comments:Mother. Father. Status:Active Hypertension Comments:Mother. Father. Status:Active Unknown Family Member Name Dates Details Breast Cancer Comments:Sister. Status:Active Colon Cancer Comments:Father. Status:Active Diabetes Mellitus Comments:Father. Status:Active Heart Disease Comments:Mother. Father. Status:Active Hypercholesterolemia Comments:Mother. Father. Status:Active Hypertension Comments:Mother. Father. Status:Active Unknown Family Member Name Dates Details Breast Cancer Comments:Sister. Status:Active Colon Cancer Comments:Father. Status:Active Diabetes Mellitus Comments:Father. Status:Active Heart Disease Comments:Mother. Father. Status:Active Hypercholesterolemia Comments:Mother. Father. Status:Active Hypertension Comments:Mother. Father. Status:Active Unknown Family Member Name Dates Details Breast Cancer Comments:Sister. Status:Active Colon Cancer Comments:Father. Status:Active Diabetes Mellitus Comments:Father. Status:Active Heart Disease Comments:Mother. Father. Status:Active Hypercholesterolemia Comments:Mother. Father. Status:Active Hypertension Comments:Mother. Father. Status:Active Unknown Family Member Name Dates Details Breast Cancer Comments:Sister. Status:Active Colon Cancer Comments:Father. Status:Active Diabetes Mellitus Comments:Father. Status:Active Heart Disease Comments:Mother. Father. Status:Active Hypercholesterolemia Comments:Mother. Father. Status:Active Hypertension Comments:Mother. Father. Status:Active Unknown Family Member Name Dates Details Breast Cancer Comments:Sister. Status:Active Colon Cancer Comments:Father. Status:Active Diabetes Mellitus Comments:Father. Status:Active Heart Disease Comments:Mother. Father. Status:Active Hypercholesterolemia Comments:Mother. Father. Status:Active Hypertension Comments:Mother. Father. Status:Active Unknown Family Member Name Dates Details Breast Cancer Comments:Sister. Status:Active Colon Cancer Comments:Father. Status:Active Diabetes Mellitus Comments:Father. Status:Active Heart Disease Comments:Mother. Father. Status:Active Hypercholesterolemia Comments:Mother. Father. Status:Active Hypertension Comments:Mother. Father. Status:Active Unknown Family Member Name Dates Details Breast Cancer Comments:Sister. Status:Active Colon Cancer Comments:Father. Status:Active Diabetes Mellitus Comments:Father. Status:Active Heart Disease Comments:Mother. Father. Status:Active Hypercholesterolemia Comments:Mother. Father. Status:Active Hypertension Comments:Mother. Father. Status:Active Unknown Family Member Name Dates Details Breast Cancer Comments:Sister. Status:Active Colon Cancer Comments:Father. Status:Active Diabetes Mellitus Comments:Father. Status:Active Heart Disease Comments:Mother. Father. Status:Active Hypercholesterolemia Comments:Mother. Father. Status:Active Hypertension Comments:Mother. Father. Status:Active Unknown Family Member Name Dates Details Breast Cancer Comments:Sister. Status:Active Colon Cancer Comments:Father. Status:Active Diabetes Mellitus Comments:Father. Status:Active Heart Disease Comments:Mother. Father. Status:Active Hypercholesterolemia Comments:Mother. Father. Status:Active Hypertension Comments:Mother. Father. Status:Active Unknown Family Member Name Dates Details Breast Cancer Comments:Sister. Status:Active Colon Cancer Comments:Father. Status:Active Diabetes Mellitus Comments:Father. Status:Active Heart Disease Comments:Mother. Father. Status:Active Hypercholesterolemia Comments:Mother. Father. Status:Active Hypertension Comments:Mother. Father. Status:Active Unknown Family Member Name Dates Details Breast Cancer Comments:Sister. Status:Active Colon Cancer Comments:Father. Status:Active Diabetes Mellitus Comments:Father. Status:Active Heart Disease Comments:Mother. Father. Status:Active Hypercholesterolemia Comments:Mother. Father. Status:Active Hypertension Comments:Mother. Father. Status:Active Unknown Family Member Name Dates Details Breast Cancer Comments:Sister. Status:Active Colon Cancer Comments:Father. Status:Active Diabetes Mellitus Comments:Father. Status:Active Heart Disease Comments:Mother. Father. Status:Active Hypercholesterolemia Comments:Mother. Father. Status:Active Hypertension Comments:Mother. Father. Status:Active Unknown Family Member Name Dates Details Breast Cancer Comments:Sister. Status:Active Colon Cancer Comments:Father. Status:Active Diabetes Mellitus Comments:Father. Status:Active Heart Disease Comments:Mother. Father. Status:Active Hypercholesterolemia Comments:Mother. Father. Status:Active Hypertension Comments:Mother. Father. Status:Active Unknown Family Member Name Dates Details Breast Cancer Comments:Sister. Status:Active Colon Cancer Comments:Father. Status:Active Diabetes Mellitus Comments:Father. Status:Active Heart Disease Comments:Mother. Father. Status:Active Hypercholesterolemia Comments:Mother. Father. Status:Active Hypertension Comments:Mother. Father. Status:Active Unknown Family Member Name Dates Details Breast Cancer Comments:Sister. Status:Active Colon Cancer Comments:Father. Status:Active Diabetes Mellitus Comments:Father. Status:Active Heart Disease Comments:Mother. Father. Status:Active Hypercholesterolemia Comments:Mother. Father. Status:Active Hypertension Comments:Mother. Father. Status:Active Unknown Family Member Name Dates Details Breast Cancer Comments:Sister. Status:Active Colon Cancer Comments:Father. Status:Active Diabetes Mellitus Comments:Father. Status:Active Heart Disease Comments:Mother. Father. Status:Active Hypercholesterolemia Comments:Mother. Father. Status:Active Hypertension Comments:Mother. Father. Status:Active Unknown Family Member Name Dates Details Breast Cancer Comments:Sister. Status:Active Colon Cancer Comments:Father. Status:Active Diabetes Mellitus Comments:Father. Status:Active Heart Disease Comments:Mother. Father. Status:Active Hypercholesterolemia Comments:Mother. Father. Status:Active Hypertension Comments:Mother. Father. Status:Active Unknown Family Member Name Dates Details Breast Cancer Comments:Sister. Status:Active Colon Cancer Comments:Father. Status:Active Diabetes Mellitus Comments:Father. Status:Active Heart Disease Comments:Mother. Father. Status:Active Hypercholesterolemia Comments:Mother. Father. Status:Active Hypertension Comments:Mother. Father. Status:Active Unknown Family Member Name Dates Details Breast Cancer Comments:Sister. Status:Active Colon Cancer Comments:Father. Status:Active Diabetes Mellitus Comments:Father. Status:Active Heart Disease Comments:Mother. Father. Status:Active Hypercholesterolemia Comments:Mother. Father. Status:Active Hypertension Comments:Mother. Father. Status:Active Unknown Family Member Name Dates Details Breast Cancer Comments:Sister. Status:Active Colon Cancer Comments:Father. Status:Active Diabetes Mellitus Comments:Father. Status:Active Heart Disease Comments:Mother. Father. Status:Active Hypercholesterolemia Comments:Mother. Father. Status:Active Hypertension Comments:Mother. Father. Status:Active Unknown Family Member Name Dates Details Breast Cancer Comments:Sister. Status:Active Colon Cancer Comments:Father. Status:Active Diabetes Mellitus Comments:Father. Status:Active Heart Disease Comments:Mother. Father. Status:Active Hypercholesterolemia Comments:Mother. Father. Status:Active Hypertension Comments:Mother. Father. Status:Active Unknown Family Member Name Dates Details Breast Cancer Comments:Sister. Status:Active Colon Cancer Comments:Father. Status:Active Diabetes Mellitus Comments:Father. Status:Active Heart Disease Comments:Mother. Father. Status:Active Hypercholesterolemia Comments:Mother. Father. Status:Active Hypertension Comments:Mother. Father. Status:Active Relationship Condition Age at Onset Recorded Date/T huey father Malignant neoplasm of colon Unknown Diabetes mellitus Unknown Cardiac disease Unknown Hypertension Unknown Coronary artery disease Unknown sister Malignant neoplasm of breast Unknown mother Coronary artery disease Unknown Unknown Family Member Name Dates Details Breast Cancer Comments:Sister. Status:Active Colon Cancer Comments:Father. Status:Active Diabetes Mellitus Comments:Father. Status:Active Heart Disease Comments:Mother. Father. Status:Active Hypercholesterolemia Comments:Mother. Father. Status:Active Hypertension Comments:Mother. Father. Status:Active Unknown Family Member Name Dates Details Breast Cancer Comments:Sister. Status:Active Colon Cancer Comments:Father. Status:Active Diabetes Mellitus Comments:Father. Status:Active Heart Disease Comments:Mother. Father. Status:Active Hypercholesterolemia Comments:Mother. Father. Status:Active Hypertension Comments:Mother. Father. Status:Active Unknown Family Member Name Dates Details Breast Cancer Comments:Sister. Status:Active Colon Cancer Comments:Father. Status:Active Diabetes Mellitus Comments:Father. Status:Active Heart Disease Comments:Mother. Father. Status:Active Hypercholesterolemia Comments:Mother. Father. Status:Active Hypertension Comments:Mother. Father. Status:Active Unknown Family Member Name Dates Details Breast Cancer Comments:Sister. Status:Active Colon Cancer Comments:Father. Status:Active Diabetes Mellitus Comments:Father. Status:Active Heart Disease Comments:Mother. Father. Status:Active Hypercholesterolemia Comments:Mother. Father. Status:Active Hypertension Comments:Mother. Father. Status:Active Unknown Family Member Name Dates Details Breast Cancer Comments:Sister. Status:Active Colon Cancer Comments:Father. Status:Active Diabetes Mellitus Comments:Father. Status:Active Heart Disease Comments:Mother. Father. Status:Active Hypercholesterolemia Comments:Mother. Father. Status:Active Hypertension Comments:Mother. Father. Status:Active Unknown Family Member Name Dates Details Breast Cancer Comments:Sister. Status:Active Colon Cancer Comments:Father. Status:Active Diabetes Mellitus Comments:Father. Status:Active Heart Disease Comments:Mother. Father. Status:Active Hypercholesterolemia Comments:Mother. Father. Status:Active Hypertension Comments:Mother. Father. Status:Active Unknown Family Member Name Dates Details Breast Cancer Comments:Sister. Status:Active Colon Cancer Comments:Father. Status:Active Diabetes Mellitus Comments:Father. Status:Active Heart Disease Comments:Mother. Father. Status:Active Hypercholesterolemia Comments:Mother. Father. Status:Active Hypertension Comments:Mother. Father. Status:Active Unknown Family Member Name Dates Details Breast Cancer Comments:Sister. Status:Active Colon Cancer Comments:Father. Status:Active Diabetes Mellitus Comments:Father. Status:Active Heart Disease Comments:Mother. Father. Status:Active Hypercholesterolemia Comments:Mother. Father. Status:Active Hypertension Comments:Mother. Father. Status:Active Unknown Family Member Name Dates Details Breast Cancer Comments:Sister. Status:Active Colon Cancer Comments:Father. Status:Active Diabetes Mellitus Comments:Father. Status:Active Heart Disease Comments:Mother. Father. Status:Active Hypercholesterolemia Comments:Mother. Father. Status:Active Hypertension Comments:Mother. Father. Status:Active Unknown Family Member Name Dates Details Breast Cancer Comments:Sister. Status:Active Colon Cancer Comments:Father. Status:Active Diabetes Mellitus Comments:Father. Status:Active Heart Disease Comments:Mother. Father. Status:Active Hypercholesterolemia Comments:Mother. Father. Status:Active Hypertension Comments:Mother. Father. Status:Active Advance Directives No Advanced Directives Records Found Name Dates Details Immunization Registry Equality - Effective on 08/26/2018. Expiration date unspecified Effective:26-Aug-2018 Name Dates Details Immunization Registry Equality - Effective on 08/26/2018. Expiration date unspecified Effective:26-Aug-2018 Name Dates Details Immunization Registry Equality - Effective on 08/26/2018. Expiration date unspecified Effective:26-Aug-2018 Name Dates Details Immunization Registry Equality - Effective on 08/26/2018. Expiration date unspecified Effective:26-Aug-2018 Name Dates Details Immunization Registry Equality - Effective on 08/26/2018. Expiration date unspecified Effective:26-Aug-2018 Name Dates Details Immunization Registry Equality - Effective on 08/26/2018. Expiration date unspecified Effective:26-Aug-2018 Name Dates Details Immunization Registry Equality - Effective on 08/26/2018. Expiration date unspecified Effective:26-Aug-2018 Name Dates Details Immunization Registry Equality - Effective on 08/26/2018. Expiration date unspecified Effective:26-Aug-2018 Name Dates Details Immunization Registry Equality - Effective on 04/13/2019. Expiration date unspecified Effective:13-Apr-2019 Name Dates Details Immunization Registry Equality - Effective on 04/13/2019. Expiration date unspecified Effective:13-Apr-2019 Name Dates Details Immunization Registry Equality - Effective on 04/13/2019. Expiration date unspecified Effective:13-Apr-2019 Name Dates Details Immunization Registry Equality - Effective on 04/13/2019. Expiration date unspecified Effective:13-Apr-2019 Name Dates Details Immunization Registry Equality - Effective on 04/13/2019. Expiration date unspecified Effective:13-Apr-2019 Name Dates Details Immunization Registry Equality - Effective on 04/13/2019. Expiration date unspecified Effective:13-Apr-2019 Name Dates Details Immunization Registry Equality - Effective on 04/13/2019. Expiration date unspecified Effective:13-Apr-2019 Name Dates Details Immunization Registry Equality - Effective on 04/13/2019. Expiration date unspecified Effective:13-Apr-2019 Name Dates Details Immunization Registry Equality - Effective on 04/13/2019. Expiration date unspecified Effective:13-Apr-2019 Name Dates Details Immunization Registry Equality - Effective on 04/13/2019. Expiration date unspecified Effective:13-Apr-2019 Name Dates Details Immunization Registry Equality - Effective on 04/13/2019. Expiration date unspecified Effective:13-Apr-2019 Name Dates Details Immunization Registry Equality - Effective on 08/26/2018. Expiration date unspecified Effective:26-Aug-2018 Name Dates Details Immunization Registry Equality - Effective on 04/13/2019. Expiration date unspecified Effective:13-Apr-2019 Name Dates Details Immunization Registry Equality - Effective on 04/13/2019. Expiration date unspecified Effective:13-Apr-2019 Name Dates Details Immunization Registry Equality - Effective on 08/26/2018. Expiration date unspecified Effective:26-Aug-2018 Name Dates Details Immunization Registry Equality - Effective on 08/26/2018. Expiration date unspecified Effective:26-Aug-2018 Name Dates Details Immunization Registry Equality - Effective on 08/26/2018. Expiration date unspecified Effective:26-Aug-2018 Name Dates Details Immunization Registry Equality - Effective on 04/13/2019. Expiration date unspecified Effective:13-Apr-2019 Name Dates Details Immunization Registry Equality - Effective on 04/13/2019. Expiration date unspecified Effective:13-Apr-2019 Name Dates Details Immunization Registry Equality - Effective on 04/13/2019. Expiration date unspecified Effective:13-Apr-2019 Name Dates Details Immunization Registry Equality - Effective on 04/13/2019. Expiration date unspecified Effective:13-Apr-2019 Name Dates Details Immunization Registry Equality - Effective on 04/13/2019. Expiration date unspecified Effective:13-Apr-2019 Name Dates Details Immunization Registry Equality - Effective on 04/13/2019. Expiration date unspecified Effective:13-Apr-2019 Name Dates Details Immunization Registry Equality - Effective on 04/13/2019. Expiration date unspecified Effective:13-Apr-2019 Name Dates Details Immunization Registry Equality - Effective on 04/13/2019. Expiration date unspecified Effective:13-Apr-2019 Advance Directive Response Recorded Date/ Time Living Will No June 03, 022 8:01am Power of Can Carrier No June 03, 2022 8:01am Advance Directive Response Recorded Date/ Time Living Will No June 04, 022 10:18am Power of Can Carrier No June 04, 2022 10:18am Name Dates Details Immunization Registry Equality - Effective on 04/13/2019. Expiration date unspecified Effective:13-Apr-2019 Name Dates Details Immunization Registry Equality - Effective on 04/13/2019. Expiration date unspecified Effective:13-Apr-2019 Name Dates Details Immunization Registry Equality - Effective on 04/13/2019. Expiration date unspecified Effective:13-Apr-2019 Name Dates Details Immunization Registry Equality - Effective on 04/13/2019. Expiration date unspecified Effective:13-Apr-2019 Name Dates Details Immunization Registry Equality - Effective on 04/13/2019. Expiration date unspecified Effective:13-Apr-2019 Advance Directive Response Recorded Date/ Time Living Will No June 04 11:18am Power of Can Carrier No June 04, 2022 11:18am Name Dates Details Immunization Registry Equality - Effective on 04/13/2019. Expiration date unspecified Effective:13-Apr-2019 Name Dates Details Immunization Registry Equality - Effective on 04/13/2019. Expiration date unspecified Effective:13-Apr-2019 Instructions Name Dates Details CAD, multiple vessel : How t o access health information online Indication:CAD, multiple vessel CAD, multiple vessel : How t o access health information online - Detail Indication:CAD, multiple vessel Name Dates Details Smoker : How to access healt h information online Indication:Smoker Smoker : How to access healt h information online - Detail Indication:Smoker Smoker : Patient Instruction s Indication:Smoker CAD, multiple vessel : How t o access health information online Indication:CAD, multiple vessel CAD, multiple vessel : How t o access health information online - Detail Indication:CAD, multiple vessel Name Dates Details Smoker : How to access healt h information online Indication:Smoker Smoker : How to access healt h information online - Detail Indication:Smoker Smoker : Patient Instruction s Indication:Smoker BMI 34.0-34.9,adult : How to access health information online Indication:BMI 34.0-34.9,adult BMI 34.0-34.9,adult : How to access health information online - Detail Indication:BMI 34.0-34.9,adult BMI 34.0-34.9,adult : Patien t Instructions Indication:BMI 34.0-34.9,adult CAD, multiple vessel : How t o access health information online Indication:CAD, multiple vessel CAD, multiple vessel : How t o access health information online - Detail Indication:CAD, multiple vessel Name Dates Details How to access health informa tion online Indication:BMI 30.0-30.9,adult Start:01-Dec-2018 Instruction Type:Patient Education How to access health informa tion online - Detail Indication:BMI 30.0-30.9,adult Start:01-Dec-2018 Instruction Type:Patient Education Patient Instructions Indication:BMI 30.0-30.9,adult Start:01-Dec-2018 Instruction Type:Provider Instructions for Treatment How to access health informa tion online Indication:Smoker Start:31-Oct-2018 Instruction Type:Patient Education How to access health informa tion online - Detail Indication:Smoker Start:31-Oct-2018 Instruction Type:Patient Education Patient Instructions Indication:Smoker Start:31-Oct-2018 Instruction Type:Provider Instructions for Treatment How to access health informa tion online Indication:BMI 34.0-34.9,adult Start:28-Oct-2018 Instruction Type:Patient Education How to access health informa tion online - Detail Indication:BMI 34.0-34.9,adult Start:28-Oct-2018 Instruction Type:Patient Education Patient Instructions Indication:BMI 34.0-34.9,adult Start:28-Oct-2018 Instruction Type:Provider Instructions for Treatment How to access health informa tion online Indication:Smoker Start:11-Sep-2018 Instruction Type:Patient Education How to access health informa tion online - Detail Indication:Smoker Start:11-Sep-2018 Instruction Type:Patient Education Patient Instructions Indication:Smoker Start:11-Sep-2018 Instruction Type:Provider Instructions for Treatment How to access health informa tion online Indication:CAD, multiple vessel Start:26-Aug-2018 Instruction Type:Patient Education How to access health informa tion online - Detail Indication:CAD, multiple vessel Start:26-Aug-2018 Instruction Type:Patient Education Name Dates Details How to access health informa tion online Indication:BMI 30.0-30.9,adult Start:01-Dec-2018 Instruction Type:Patient Education How to access health informa tion online - Detail Indication:BMI 30.0-30.9,adult Start:01-Dec-2018 Instruction Type:Patient Education Patient Instructions Indication:BMI 30.0-30.9,adult Start:01-Dec-2018 Instruction Type:Provider Instructions for Treatment How to access health informa tion online Indication:Smoker Start:31-Oct-2018 Instruction Type:Patient Education How to access health informa tion online - Detail Indication:Smoker Start:31-Oct-2018 Instruction Type:Patient Education Patient Instructions Indication:Smoker Start:31-Oct-2018 Instruction Type:Provider Instructions for Treatment How to access health informa tion online Indication:BMI 34.0-34.9,adult Start:28-Oct-2018 Instruction Type:Patient Education How to access health informa tion online - Detail Indication:BMI 34.0-34.9,adult Start:28-Oct-2018 Instruction Type:Patient Education Patient Instructions Indication:BMI 34.0-34.9,adult Start:28-Oct-2018 Instruction Type:Provider Instructions for Treatment How to access health informa tion online Indication:Smoker Start:11-Sep-2018 Instruction Type:Patient Education How to access health informa tion online - Detail Indication:Smoker Start:11-Sep-2018 Instruction Type:Patient Education Patient Instructions Indication:Smoker Start:11-Sep-2018 Instruction Type:Provider Instructions for Treatment How to access health informa tion online Indication:CAD, multiple vessel Start:26-Aug-2018 Instruction Type:Patient Education How to access health informa tion online - Detail Indication:CAD, multiple vessel Start:26-Aug-2018 Instruction Type:Patient Education Name Dates Details How to access health informa tion online Indication:Smoker Start:08-Dec-2018 Instruction Type:Patient Education How to access health informa tion online - Detail Indication:Smoker Start:08-Dec-2018 Instruction Type:Patient Education Patient Instructions Indication:Smoker Start:08-Dec-2018 Instruction Type:Provider Instructions for Treatment How to access health informa tion online Indication:BMI 30.0-30.9,adult Start:01-Dec-2018 Instruction Type:Patient Education How to access health informa tion online - Detail Indication:BMI 30.0-30.9,adult Start:01-Dec-2018 Instruction Type:Patient Education Patient Instructions Indication:BMI 30.0-30.9,adult Start:01-Dec-2018 Instruction Type:Provider Instructions for Treatment How to access health informa tion online Indication:Smoker Start:31-Oct-2018 Instruction Type:Patient Education How to access health informa tion online - Detail Indication:Smoker Start:31-Oct-2018 Instruction Type:Patient Education Patient Instructions Indication:Smoker Start:31-Oct-2018 Instruction Type:Provider Instructions for Treatment How to access health informa tion online Indication:BMI 34.0-34.9,adult Start:28-Oct-2018 Instruction Type:Patient Education How to access health informa tion online - Detail Indication:BMI 34.0-34.9,adult Start:28-Oct-2018 Instruction Type:Patient Education Patient Instructions Indication:BMI 34.0-34.9,adult Start:28-Oct-2018 Instruction Type:Provider Instructions for Treatment How to access health informa tion online Indication:Smoker Start:11-Sep-2018 Instruction Type:Patient Education How to access health informa tion online - Detail Indication:Smoker Start:11-Sep-2018 Instruction Type:Patient Education Patient Instructions Indication:Smoker Start:11-Sep-2018 Instruction Type:Provider Instructions for Treatment How to access health informa tion online Indication:CAD, multiple vessel Start:26-Aug-2018 Instruction Type:Patient Education How to access health informa tion online - Detail Indication:CAD, multiple vessel Start:26-Aug-2018 Instruction Type:Patient Education Name Dates Details How to access health informa tion online Indication:Non-smoker Start:22-Dec-2018 Instruction Type:Patient Education How to access health informa tion online - Detail Indication:Non-smoker Start:22-Dec-2018 Instruction Type:Patient Education Patient Instructions Indication:Non-smoker Start:22-Dec-2018 Instruction Type:Provider Instructions for Treatment How to access health informa tion online Indication:Smoker Start:08-Dec-2018 Instruction Type:Patient Education How to access health informa tion online - Detail Indication:Smoker Start:08-Dec-2018 Instruction Type:Patient Education Patient Instructions Indication:Smoker Start:08-Dec-2018 Instruction Type:Provider Instructions for Treatment How to access health informa tion online Indication:BMI 30.0-30.9,adult Start:01-Dec-2018 Instruction Type:Patient Education How to access health informa tion online - Detail Indication:BMI 30.0-30.9,adult Start:01-Dec-2018 Instruction Type:Patient Education Patient Instructions Indication:BMI 30.0-30.9,adult Start:01-Dec-2018 Instruction Type:Provider Instructions for Treatment How to access health informa tion online Indication:Smoker Start:31-Oct-2018 Instruction Type:Patient Education How to access health informa tion online - Detail Indication:Smoker Start:31-Oct-2018 Instruction Type:Patient Education Patient Instructions Indication:Smoker Start:31-Oct-2018 Instruction Type:Provider Instructions for Treatment How to access health informa tion online Indication:BMI 34.0-34.9,adult Start:28-Oct-2018 Instruction Type:Patient Education How to access health informa tion online - Detail Indication:BMI 34.0-34.9,adult Start:28-Oct-2018 Instruction Type:Patient Education Patient Instructions Indication:BMI 34.0-34.9,adult Start:28-Oct-2018 Instruction Type:Provider Instructions for Treatment How to access health informa tion online Indication:Smoker Start:11-Sep-2018 Instruction Type:Patient Education How to access health informa tion online - Detail Indication:Smoker Start:11-Sep-2018 Instruction Type:Patient Education Patient Instructions Indication:Smoker Start:11-Sep-2018 Instruction Type:Provider Instructions for Treatment How to access health informa tion online Indication:CAD, multiple vessel Start:26-Aug-2018 Instruction Type:Patient Education How to access health informa tion online - Detail Indication:CAD, multiple vessel Start:26-Aug-2018 Instruction Type:Patient Education Name Dates Details How to access health informa tion online Indication:Non-smoker Start:12-Jan-2019 Instruction Type:Patient Education How to access health informa tion online - Detail Indication:Non-smoker Start:12-Jan-2019 Instruction Type:Patient Education Patient Instructions Indication:Non-smoker Start:12-Jan-2019 Instruction Type:Provider Instructions for Treatment How to access health informa tion online Indication:Non-smoker Start:22-Dec-2018 Instruction Type:Patient Education How to access health informa tion online - Detail Indication:Non-smoker Start:22-Dec-2018 Instruction Type:Patient Education Patient Instructions Indication:Non-smoker Start:22-Dec-2018 Instruction Type:Provider Instructions for Treatment How to access health informa tion online Indication:Smoker Start:08-Dec-2018 Instruction Type:Patient Education How to access health informa tion online - Detail Indication:Smoker Start:08-Dec-2018 Instruction Type:Patient Education Patient Instructions Indication:Smoker Start:08-Dec-2018 Instruction Type:Provider Instructions for Treatment How to access health informa tion online Indication:BMI 30.0-30.9,adult Start:01-Dec-2018 Instruction Type:Patient Education How to access health informa tion online - Detail Indication:BMI 30.0-30.9,adult Start:01-Dec-2018 Instruction Type:Patient Education Patient Instructions Indication:BMI 30.0-30.9,adult Start:01-Dec-2018 Instruction Type:Provider Instructions for Treatment How to access health informa tion online Indication:Smoker Start:31-Oct-2018 Instruction Type:Patient Education How to access health informa tion online - Detail Indication:Smoker Start:31-Oct-2018 Instruction Type:Patient Education Patient Instructions Indication:Smoker Start:31-Oct-2018 Instruction Type:Provider Instructions for Treatment How to access health informa tion online Indication:BMI 34.0-34.9,adult Start:28-Oct-2018 Instruction Type:Patient Education How to access health informa tion online - Detail Indication:BMI 34.0-34.9,adult Start:28-Oct-2018 Instruction Type:Patient Education Patient Instructions Indication:BMI 34.0-34.9,adult Start:28-Oct-2018 Instruction Type:Provider Instructions for Treatment How to access health informa tion online Indication:Smoker Start:11-Sep-2018 Instruction Type:Patient Education How to access health informa tion online - Detail Indication:Smoker Start:11-Sep-2018 Instruction Type:Patient Education Patient Instructions Indication:Smoker Start:11-Sep-2018 Instruction Type:Provider Instructions for Treatment How to access health informa tion online Indication:CAD, multiple vessel Start:26-Aug-2018 Instruction Type:Patient Education How to access health informa tion online - Detail Indication:CAD, multiple vessel Start:26-Aug-2018 Instruction Type:Patient Education Name Dates Details How to access health informa tion online Indication:BMI 31.0-31.9,adult Start:13-Apr-2019 Instruction Type:Patient Education How to access health informa tion online - Detail Indication:BMI 31.0-31.9,adult Start:13-Apr-2019 Instruction Type:Patient Education Patient Instructions Indication:BMI 31.0-31.9,adult Start:13-Apr-2019 Instruction Type:Provider Instructions for Treatment How to access health informa tion online Indication:Non-smoker Start:12-Jan-2019 Instruction Type:Patient Education How to access health informa tion online - Detail Indication:Non-smoker Start:12-Jan-2019 Instruction Type:Patient Education Patient Instructions Indication:Non-smoker Start:12-Jan-2019 Instruction Type:Provider Instructions for Treatment How to access health informa tion online Indication:Non-smoker Start:22-Dec-2018 Instruction Type:Patient Education How to access health informa tion online - Detail Indication:Non-smoker Start:22-Dec-2018 Instruction Type:Patient Education Patient Instructions Indication:Non-smoker Start:22-Dec-2018 Instruction Type:Provider Instructions for Treatment How to access health informa tion online Indication:Smoker Start:08-Dec-2018 Instruction Type:Patient Education How to access health informa tion online - Detail Indication:Smoker Start:08-Dec-2018 Instruction Type:Patient Education Patient Instructions Indication:Smoker Start:08-Dec-2018 Instruction Type:Provider Instructions for Treatment How to access health informa tion online Indication:BMI 30.0-30.9,adult Start:01-Dec-2018 Instruction Type:Patient Education How to access health informa tion online - Detail Indication:BMI 30.0-30.9,adult Start:01-Dec-2018 Instruction Type:Patient Education Patient Instructions Indication:BMI 30.0-30.9,adult Start:01-Dec-2018 Instruction Type:Provider Instructions for Treatment How to access health informa tion online Indication:Smoker Start:31-Oct-2018 Instruction Type:Patient Education How to access health informa tion online - Detail Indication:Smoker Start:31-Oct-2018 Instruction Type:Patient Education Patient Instructions Indication:Smoker Start:31-Oct-2018 Instruction Type:Provider Instructions for Treatment How to access health informa tion online Indication:BMI 34.0-34.9,adult Start:28-Oct-2018 Instruction Type:Patient Education How to access health informa tion online - Detail Indication:BMI 34.0-34.9,adult Start:28-Oct-2018 Instruction Type:Patient Education Patient Instructions Indication:BMI 34.0-34.9,adult Start:28-Oct-2018 Instruction Type:Provider Instructions for Treatment How to access health informa tion online Indication:Smoker Start:11-Sep-2018 Instruction Type:Patient Education How to access health informa tion online - Detail Indication:Smoker Start:11-Sep-2018 Instruction Type:Patient Education Patient Instructions Indication:Smoker Start:11-Sep-2018 Instruction Type:Provider Instructions for Treatment How to access health informa tion online Indication:CAD, multiple vessel Start:26-Aug-2018 Instruction Type:Patient Education How to access health informa tion online - Detail Indication:CAD, multiple vessel Start:26-Aug-2018 Instruction Type:Patient Education Name Dates Details How to access health informa tion online Indication:BMI 31.0-31.9,adult Start:13-Apr-2019 Instruction Type:Patient Education How to access health informa tion online - Detail Indication:BMI 31.0-31.9,adult Start:13-Apr-2019 Instruction Type:Patient Education Patient Instructions Indication:BMI 31.0-31.9,adult Start:13-Apr-2019 Instruction Type:Provider Instructions for Treatment How to access health informa tion online Indication:Non-smoker Start:12-Jan-2019 Instruction Type:Patient Education How to access health informa tion online - Detail Indication:Non-smoker Start:12-Jan-2019 Instruction Type:Patient Education Patient Instructions Indication:Non-smoker Start:12-Jan-2019 Instruction Type:Provider Instructions for Treatment How to access health informa tion online Indication:Non-smoker Start:22-Dec-2018 Instruction Type:Patient Education How to access health informa tion online - Detail Indication:Non-smoker Start:22-Dec-2018 Instruction Type:Patient Education Patient Instructions Indication:Non-smoker Start:22-Dec-2018 Instruction Type:Provider Instructions for Treatment How to access health informa tion online Indication:Smoker Start:08-Dec-2018 Instruction Type:Patient Education How to access health informa tion online - Detail Indication:Smoker Start:08-Dec-2018 Instruction Type:Patient Education Patient Instructions Indication:Smoker Start:08-Dec-2018 Instruction Type:Provider Instructions for Treatment How to access health informa tion online Indication:BMI 30.0-30.9,adult Start:01-Dec-2018 Instruction Type:Patient Education How to access health informa tion online - Detail Indication:BMI 30.0-30.9,adult Start:01-Dec-2018 Instruction Type:Patient Education Patient Instructions Indication:BMI 30.0-30.9,adult Start:01-Dec-2018 Instruction Type:Provider Instructions for Treatment How to access health informa tion online Indication:Smoker Start:31-Oct-2018 Instruction Type:Patient Education How to access health informa tion online - Detail Indication:Smoker Start:31-Oct-2018 Instruction Type:Patient Education Patient Instructions Indication:Smoker Start:31-Oct-2018 Instruction Type:Provider Instructions for Treatment How to access health informa tion online Indication:BMI 34.0-34.9,adult Start:28-Oct-2018 Instruction Type:Patient Education How to access health informa tion online - Detail Indication:BMI 34.0-34.9,adult Start:28-Oct-2018 Instruction Type:Patient Education Patient Instructions Indication:BMI 34.0-34.9,adult Start:28-Oct-2018 Instruction Type:Provider Instructions for Treatment How to access health informa tion online Indication:Smoker Start:11-Sep-2018 Instruction Type:Patient Education How to access health informa tion online - Detail Indication:Smoker Start:11-Sep-2018 Instruction Type:Patient Education Patient Instructions Indication:Smoker Start:11-Sep-2018 Instruction Type:Provider Instructions for Treatment How to access health informa tion online Indication:CAD, multiple vessel Start:26-Aug-2018 Instruction Type:Patient Education How to access health informa tion online - Detail Indication:CAD, multiple vessel Start:26-Aug-2018 Instruction Type:Patient Education Name Dates Details How to access health informa tion online Indication:BMI 33.0-33.9,adult Start:11-Jan-2020 Instruction Type:Patient Education How to access health informa tion online - Detail Indication:BMI 33.0-33.9,adult Start:11-Jan-2020 Instruction Type:Patient Education Patient Instructions Indication:BMI 33.0-33.9,adult Start:11-Jan-2020 Instruction Type:Provider Instructions for Treatment How to access health informa tion online Indication:BMI 34.0-34.9,adult Start:24-Dec-2019 Instruction Type:Patient Education How to access health informa tion online - Detail Indication:BMI 34.0-34.9,adult Start:24-Dec-2019 Instruction Type:Patient Education Patient Instructions Indication:BMI 34.0-34.9,adult Start:24-Dec-2019 Instruction Type:Provider Instructions for Treatment How to access health informa tion online Indication:BMI 31.0-31.9,adult Start:13-Apr-2019 Instruction Type:Patient Education How to access health informa tion online - Detail Indication:BMI 31.0-31.9,adult Start:13-Apr-2019 Instruction Type:Patient Education Patient Instructions Indication:BMI 31.0-31.9,adult Start:13-Apr-2019 Instruction Type:Provider Instructions for Treatment How to access health informa tion online Indication:Non-smoker Start:12-Jan-2019 Instruction Type:Patient Education How to access health informa tion online - Detail Indication:Non-smoker Start:12-Jan-2019 Instruction Type:Patient Education Patient Instructions Indication:Non-smoker Start:12-Jan-2019 Instruction Type:Provider Instructions for Treatment How to access health informa tion online Indication:Non-smoker Start:22-Dec-2018 Instruction Type:Patient Education How to access health informa tion online - Detail Indication:Non-smoker Start:22-Dec-2018 Instruction Type:Patient Education Patient Instructions Indication:Non-smoker Start:22-Dec-2018 Instruction Type:Provider Instructions for Treatment How to access health informa tion online Indication:Smoker Start:08-Dec-2018 Instruction Type:Patient Education How to access health informa tion online - Detail Indication:Smoker Start:08-Dec-2018 Instruction Type:Patient Education Patient Instructions Indication:Smoker Start:08-Dec-2018 Instruction Type:Provider Instructions for Treatment How to access health informa tion online Indication:BMI 30.0-30.9,adult Start:01-Dec-2018 Instruction Type:Patient Education How to access health informa tion online - Detail Indication:BMI 30.0-30.9,adult Start:01-Dec-2018 Instruction Type:Patient Education Patient Instructions Indication:BMI 30.0-30.9,adult Start:01-Dec-2018 Instruction Type:Provider Instructions for Treatment How to access health informa tion online Indication:Smoker Start:31-Oct-2018 Instruction Type:Patient Education How to access health informa tion online - Detail Indication:Smoker Start:31-Oct-2018 Instruction Type:Patient Education Patient Instructions Indication:Smoker Start:31-Oct-2018 Instruction Type:Provider Instructions for Treatment How to access health informa tion online Indication:BMI 34.0-34.9,adult Start:28-Oct-2018 Instruction Type:Patient Education How to access health informa tion online - Detail Indication:BMI 34.0-34.9,adult Start:28-Oct-2018 Instruction Type:Patient Education Patient Instructions Indication:BMI 34.0-34.9,adult Start:28-Oct-2018 Instruction Type:Provider Instructions for Treatment How to access health informa tion online Indication:Smoker Start:11-Sep-2018 Instruction Type:Patient Education How to access health informa tion online - Detail Indication:Smoker Start:11-Sep-2018 Instruction Type:Patient Education Patient Instructions Indication:Smoker Start:11-Sep-2018 Instruction Type:Provider Instructions for Treatment How to access health informa tion online Indication:CAD, multiple vessel Start:26-Aug-2018 Instruction Type:Patient Education How to access health informa tion online - Detail Indication:CAD, multiple vessel Start:26-Aug-2018 Instruction Type:Patient Education Name Dates Details How to access health informa tion online Indication:BMI 33.0-33.9,adult Start:11-Jan-2020 Instruction Type:Patient Education How to access health informa tion online - Detail Indication:BMI 33.0-33.9,adult Start:11-Jan-2020 Instruction Type:Patient Education Patient Instructions Indication:BMI 33.0-33.9,adult Start:11-Jan-2020 Instruction Type:Provider Instructions for Treatment How to access health informa tion online Indication:BMI 34.0-34.9,adult Start:24-Dec-2019 Instruction Type:Patient Education How to access health informa tion online - Detail Indication:BMI 34.0-34.9,adult Start:24-Dec-2019 Instruction Type:Patient Education Patient Instructions Indication:BMI 34.0-34.9,adult Start:24-Dec-2019 Instruction Type:Provider Instructions for Treatment How to access health informa tion online Indication:BMI 31.0-31.9,adult Start:13-Apr-2019 Instruction Type:Patient Education How to access health informa tion online - Detail Indication:BMI 31.0-31.9,adult Start:13-Apr-2019 Instruction Type:Patient Education Patient Instructions Indication:BMI 31.0-31.9,adult Start:13-Apr-2019 Instruction Type:Provider Instructions for Treatment How to access health informa tion online Indication:Non-smoker Start:12-Jan-2019 Instruction Type:Patient Education How to access health informa tion online - Detail Indication:Non-smoker Start:12-Jan-2019 Instruction Type:Patient Education Patient Instructions Indication:Non-smoker Start:12-Jan-2019 Instruction Type:Provider Instructions for Treatment How to access health informa tion online Indication:Non-smoker Start:22-Dec-2018 Instruction Type:Patient Education How to access health informa tion online - Detail Indication:Non-smoker Start:22-Dec-2018 Instruction Type:Patient Education Patient Instructions Indication:Non-smoker Start:22-Dec-2018 Instruction Type:Provider Instructions for Treatment How to access health informa tion online Indication:Smoker Start:08-Dec-2018 Instruction Type:Patient Education How to access health informa tion online - Detail Indication:Smoker Start:08-Dec-2018 Instruction Type:Patient Education Patient Instructions Indication:Smoker Start:08-Dec-2018 Instruction Type:Provider Instructions for Treatment How to access health informa tion online Indication:BMI 30.0-30.9,adult Start:01-Dec-2018 Instruction Type:Patient Education How to access health informa tion online - Detail Indication:BMI 30.0-30.9,adult Start:01-Dec-2018 Instruction Type:Patient Education Patient Instructions Indication:BMI 30.0-30.9,adult Start:01-Dec-2018 Instruction Type:Provider Instructions for Treatment How to access health informa tion online Indication:Smoker Start:31-Oct-2018 Instruction Type:Patient Education How to access health informa tion online - Detail Indication:Smoker Start:31-Oct-2018 Instruction Type:Patient Education Patient Instructions Indication:Smoker Start:31-Oct-2018 Instruction Type:Provider Instructions for Treatment How to access health informa tion online Indication:BMI 34.0-34.9,adult Start:28-Oct-2018 Instruction Type:Patient Education How to access health informa tion online - Detail Indication:BMI 34.0-34.9,adult Start:28-Oct-2018 Instruction Type:Patient Education Patient Instructions Indication:BMI 34.0-34.9,adult Start:28-Oct-2018 Instruction Type:Provider Instructions for Treatment How to access health informa tion online Indication:Smoker Start:11-Sep-2018 Instruction Type:Patient Education How to access health informa tion online - Detail Indication:Smoker Start:11-Sep-2018 Instruction Type:Patient Education Patient Instructions Indication:Smoker Start:11-Sep-2018 Instruction Type:Provider Instructions for Treatment How to access health informa tion online Indication:CAD, multiple vessel Start:26-Aug-2018 Instruction Type:Patient Education How to access health informa tion online - Detail Indication:CAD, multiple vessel Start:26-Aug-2018 Instruction Type:Patient Education Name Dates Details How to access health informa tion online Indication:BMI 32.0-32.9,adult Start:01-Feb-2020 Instruction Type:Patient Education How to access health informa tion online - Detail Indication:BMI 32.0-32.9,adult Start:01-Feb-2020 Instruction Type:Patient Education Patient Instructions Indication:BMI 32.0-32.9,adult Start:01-Feb-2020 Instruction Type:Provider Instructions for Treatment How to access health informa tion online Indication:BMI 33.0-33.9,adult Start:11-Jan-2020 Instruction Type:Patient Education How to access health informa tion online - Detail Indication:BMI 33.0-33.9,adult Start:11-Jan-2020 Instruction Type:Patient Education Patient Instructions Indication:BMI 33.0-33.9,adult Start:11-Jan-2020 Instruction Type:Provider Instructions for Treatment How to access health informa tion online Indication:BMI 34.0-34.9,adult Start:24-Dec-2019 Instruction Type:Patient Education How to access health informa tion online - Detail Indication:BMI 34.0-34.9,adult Start:24-Dec-2019 Instruction Type:Patient Education Patient Instructions Indication:BMI 34.0-34.9,adult Start:24-Dec-2019 Instruction Type:Provider Instructions for Treatment How to access health informa tion online Indication:BMI 31.0-31.9,adult Start:13-Apr-2019 Instruction Type:Patient Education How to access health informa tion online - Detail Indication:BMI 31.0-31.9,adult Start:13-Apr-2019 Instruction Type:Patient Education Patient Instructions Indication:BMI 31.0-31.9,adult Start:13-Apr-2019 Instruction Type:Provider Instructions for Treatment How to access health informa tion online Indication:Non-smoker Start:12-Jan-2019 Instruction Type:Patient Education How to access health informa tion online - Detail Indication:Non-smoker Start:12-Jan-2019 Instruction Type:Patient Education Patient Instructions Indication:Non-smoker Start:12-Jan-2019 Instruction Type:Provider Instructions for Treatment How to access health informa tion online Indication:Non-smoker Start:22-Dec-2018 Instruction Type:Patient Education How to access health informa tion online - Detail Indication:Non-smoker Start:22-Dec-2018 Instruction Type:Patient Education Patient Instructions Indication:Non-smoker Start:22-Dec-2018 Instruction Type:Provider Instructions for Treatment How to access health informa tion online Indication:Smoker Start:08-Dec-2018 Instruction Type:Patient Education How to access health informa tion online - Detail Indication:Smoker Start:08-Dec-2018 Instruction Type:Patient Education Patient Instructions Indication:Smoker Start:08-Dec-2018 Instruction Type:Provider Instructions for Treatment How to access health informa tion online Indication:BMI 30.0-30.9,adult Start:01-Dec-2018 Instruction Type:Patient Education How to access health informa tion online - Detail Indication:BMI 30.0-30.9,adult Start:01-Dec-2018 Instruction Type:Patient Education Patient Instructions Indication:BMI 30.0-30.9,adult Start:01-Dec-2018 Instruction Type:Provider Instructions for Treatment How to access health informa tion online Indication:Smoker Start:31-Oct-2018 Instruction Type:Patient Education How to access health informa tion online - Detail Indication:Smoker Start:31-Oct-2018 Instruction Type:Patient Education Patient Instructions Indication:Smoker Start:31-Oct-2018 Instruction Type:Provider Instructions for Treatment How to access health informa tion online Indication:BMI 34.0-34.9,adult Start:28-Oct-2018 Instruction Type:Patient Education How to access health informa tion online - Detail Indication:BMI 34.0-34.9,adult Start:28-Oct-2018 Instruction Type:Patient Education Patient Instructions Indication:BMI 34.0-34.9,adult Start:28-Oct-2018 Instruction Type:Provider Instructions for Treatment How to access health informa tion online Indication:Smoker Start:11-Sep-2018 Instruction Type:Patient Education How to access health informa tion online - Detail Indication:Smoker Start:11-Sep-2018 Instruction Type:Patient Education Patient Instructions Indication:Smoker Start:11-Sep-2018 Instruction Type:Provider Instructions for Treatment How to access health informa tion online Indication:CAD, multiple vessel Start:26-Aug-2018 Instruction Type:Patient Education How to access health informa tion online - Detail Indication:CAD, multiple vessel Start:26-Aug-2018 Instruction Type:Patient Education Name Dates Details How to access health informa tion online Indication:BMI 32.0-32.9,adult Start:01-Feb-2020 Instruction Type:Patient Education How to access health informa tion online - Detail Indication:BMI 32.0-32.9,adult Start:01-Feb-2020 Instruction Type:Patient Education Patient Instructions Indication:BMI 32.0-32.9,adult Start:01-Feb-2020 Instruction Type:Provider Instructions for Treatment How to access health informa tion online Indication:BMI 33.0-33.9,adult Start:11-Jan-2020 Instruction Type:Patient Education How to access health informa tion online - Detail Indication:BMI 33.0-33.9,adult Start:11-Jan-2020 Instruction Type:Patient Education Patient Instructions Indication:BMI 33.0-33.9,adult Start:11-Jan-2020 Instruction Type:Provider Instructions for Treatment How to access health informa tion online Indication:BMI 34.0-34.9,adult Start:24-Dec-2019 Instruction Type:Patient Education How to access health informa tion online - Detail Indication:BMI 34.0-34.9,adult Start:24-Dec-2019 Instruction Type:Patient Education Patient Instructions Indication:BMI 34.0-34.9,adult Start:24-Dec-2019 Instruction Type:Provider Instructions for Treatment How to access health informa tion online Indication:BMI 31.0-31.9,adult Start:13-Apr-2019 Instruction Type:Patient Education How to access health informa tion online - Detail Indication:BMI 31.0-31.9,adult Start:13-Apr-2019 Instruction Type:Patient Education Patient Instructions Indication:BMI 31.0-31.9,adult Start:13-Apr-2019 Instruction Type:Provider Instructions for Treatment How to access health informa tion online Indication:Non-smoker Start:12-Jan-2019 Instruction Type:Patient Education How to access health informa tion online - Detail Indication:Non-smoker Start:12-Jan-2019 Instruction Type:Patient Education Patient Instructions Indication:Non-smoker Start:12-Jan-2019 Instruction Type:Provider Instructions for Treatment How to access health informa tion online Indication:Non-smoker Start:22-Dec-2018 Instruction Type:Patient Education How to access health informa tion online - Detail Indication:Non-smoker Start:22-Dec-2018 Instruction Type:Patient Education Patient Instructions Indication:Non-smoker Start:22-Dec-2018 Instruction Type:Provider Instructions for Treatment How to access health informa tion online Indication:Smoker Start:08-Dec-2018 Instruction Type:Patient Education How to access health informa tion online - Detail Indication:Smoker Start:08-Dec-2018 Instruction Type:Patient Education Patient Instructions Indication:Smoker Start:08-Dec-2018 Instruction Type:Provider Instructions for Treatment How to access health informa tion online Indication:BMI 30.0-30.9,adult Start:01-Dec-2018 Instruction Type:Patient Education How to access health informa tion online - Detail Indication:BMI 30.0-30.9,adult Start:01-Dec-2018 Instruction Type:Patient Education Patient Instructions Indication:BMI 30.0-30.9,adult Start:01-Dec-2018 Instruction Type:Provider Instructions for Treatment How to access health informa tion online Indication:Smoker Start:31-Oct-2018 Instruction Type:Patient Education How to access health informa tion online - Detail Indication:Smoker Start:31-Oct-2018 Instruction Type:Patient Education Patient Instructions Indication:Smoker Start:31-Oct-2018 Instruction Type:Provider Instructions for Treatment How to access health informa tion online Indication:BMI 34.0-34.9,adult Start:28-Oct-2018 Instruction Type:Patient Education How to access health informa tion online - Detail Indication:BMI 34.0-34.9,adult Start:28-Oct-2018 Instruction Type:Patient Education Patient Instructions Indication:BMI 34.0-34.9,adult Start:28-Oct-2018 Instruction Type:Provider Instructions for Treatment How to access health informa tion online Indication:Smoker Start:11-Sep-2018 Instruction Type:Patient Education How to access health informa tion online - Detail Indication:Smoker Start:11-Sep-2018 Instruction Type:Patient Education Patient Instructions Indication:Smoker Start:11-Sep-2018 Instruction Type:Provider Instructions for Treatment How to access health informa tion online Indication:CAD, multiple vessel Start:26-Aug-2018 Instruction Type:Patient Education How to access health informa tion online - Detail Indication:CAD, multiple vessel Start:26-Aug-2018 Instruction Type:Patient Education Name Dates Details How to access health informa tion online Indication:BMI 32.0-32.9,adult Start:01-Feb-2020 Instruction Type:Patient Education How to access health informa tion online - Detail Indication:BMI 32.0-32.9,adult Start:01-Feb-2020 Instruction Type:Patient Education Patient Instructions Indication:BMI 32.0-32.9,adult Start:01-Feb-2020 Instruction Type:Provider Instructions for Treatment How to access health informa tion online Indication:BMI 33.0-33.9,adult Start:11-Jan-2020 Instruction Type:Patient Education How to access health informa tion online - Detail Indication:BMI 33.0-33.9,adult Start:11-Jan-2020 Instruction Type:Patient Education Patient Instructions Indication:BMI 33.0-33.9,adult Start:11-Jan-2020 Instruction Type:Provider Instructions for Treatment How to access health informa tion online Indication:BMI 34.0-34.9,adult Start:24-Dec-2019 Instruction Type:Patient Education How to access health informa tion online - Detail Indication:BMI 34.0-34.9,adult Start:24-Dec-2019 Instruction Type:Patient Education Patient Instructions Indication:BMI 34.0-34.9,adult Start:24-Dec-2019 Instruction Type:Provider Instructions for Treatment How to access health informa tion online Indication:BMI 31.0-31.9,adult Start:13-Apr-2019 Instruction Type:Patient Education How to access health informa tion online - Detail Indication:BMI 31.0-31.9,adult Start:13-Apr-2019 Instruction Type:Patient Education Patient Instructions Indication:BMI 31.0-31.9,adult Start:13-Apr-2019 Instruction Type:Provider Instructions for Treatment How to access health informa tion online Indication:Non-smoker Start:12-Jan-2019 Instruction Type:Patient Education How to access health informa tion online - Detail Indication:Non-smoker Start:12-Jan-2019 Instruction Type:Patient Education Patient Instructions Indication:Non-smoker Start:12-Jan-2019 Instruction Type:Provider Instructions for Treatment How to access health informa tion online Indication:Non-smoker Start:22-Dec-2018 Instruction Type:Patient Education How to access health informa tion online - Detail Indication:Non-smoker Start:22-Dec-2018 Instruction Type:Patient Education Patient Instructions Indication:Non-smoker Start:22-Dec-2018 Instruction Type:Provider Instructions for Treatment How to access health informa tion online Indication:Smoker Start:08-Dec-2018 Instruction Type:Patient Education How to access health informa tion online - Detail Indication:Smoker Start:08-Dec-2018 Instruction Type:Patient Education Patient Instructions Indication:Smoker Start:08-Dec-2018 Instruction Type:Provider Instructions for Treatment How to access health informa tion online Indication:BMI 30.0-30.9,adult Start:01-Dec-2018 Instruction Type:Patient Education How to access health informa tion online - Detail Indication:BMI 30.0-30.9,adult Start:01-Dec-2018 Instruction Type:Patient Education Patient Instructions Indication:BMI 30.0-30.9,adult Start:01-Dec-2018 Instruction Type:Provider Instructions for Treatment How to access health informa tion online Indication:Smoker Start:31-Oct-2018 Instruction Type:Patient Education How to access health informa tion online - Detail Indication:Smoker Start:31-Oct-2018 Instruction Type:Patient Education Patient Instructions Indication:Smoker Start:31-Oct-2018 Instruction Type:Provider Instructions for Treatment How to access health informa tion online Indication:BMI 34.0-34.9,adult Start:28-Oct-2018 Instruction Type:Patient Education How to access health informa tion online - Detail Indication:BMI 34.0-34.9,adult Start:28-Oct-2018 Instruction Type:Patient Education Patient Instructions Indication:BMI 34.0-34.9,adult Start:28-Oct-2018 Instruction Type:Provider Instructions for Treatment How to access health informa tion online Indication:Smoker Start:11-Sep-2018 Instruction Type:Patient Education How to access health informa tion online - Detail Indication:Smoker Start:11-Sep-2018 Instruction Type:Patient Education Patient Instructions Indication:Smoker Start:11-Sep-2018 Instruction Type:Provider Instructions for Treatment How to access health informa tion online Indication:CAD, multiple vessel Start:26-Aug-2018 Instruction Type:Patient Education How to access health informa tion online - Detail Indication:CAD, multiple vessel Start:26-Aug-2018 Instruction Type:Patient Education Name Dates Details How to access health informa tion online Indication:BMI 32.0-32.9,adult Start:01-Feb-2020 Instruction Type:Patient Education How to access health informa tion online - Detail Indication:BMI 32.0-32.9,adult Start:01-Feb-2020 Instruction Type:Patient Education Patient Instructions Indication:BMI 32.0-32.9,adult Start:01-Feb-2020 Instruction Type:Provider Instructions for Treatment How to access health informa tion online Indication:BMI 33.0-33.9,adult Start:11-Jan-2020 Instruction Type:Patient Education How to access health informa tion online - Detail Indication:BMI 33.0-33.9,adult Start:11-Jan-2020 Instruction Type:Patient Education Patient Instructions Indication:BMI 33.0-33.9,adult Start:11-Jan-2020 Instruction Type:Provider Instructions for Treatment How to access health informa tion online Indication:BMI 34.0-34.9,adult Start:24-Dec-2019 Instruction Type:Patient Education How to access health informa tion online - Detail Indication:BMI 34.0-34.9,adult Start:24-Dec-2019 Instruction Type:Patient Education Patient Instructions Indication:BMI 34.0-34.9,adult Start:24-Dec-2019 Instruction Type:Provider Instructions for Treatment How to access health informa tion online Indication:BMI 31.0-31.9,adult Start:13-Apr-2019 Instruction Type:Patient Education How to access health informa tion online - Detail Indication:BMI 31.0-31.9,adult Start:13-Apr-2019 Instruction Type:Patient Education Patient Instructions Indication:BMI 31.0-31.9,adult Start:13-Apr-2019 Instruction Type:Provider Instructions for Treatment How to access health informa tion online Indication:Non-smoker Start:12-Jan-2019 Instruction Type:Patient Education How to access health informa tion online - Detail Indication:Non-smoker Start:12-Jan-2019 Instruction Type:Patient Education Patient Instructions Indication:Non-smoker Start:12-Jan-2019 Instruction Type:Provider Instructions for Treatment How to access health informa tion online Indication:Non-smoker Start:22-Dec-2018 Instruction Type:Patient Education How to access health informa tion online - Detail Indication:Non-smoker Start:22-Dec-2018 Instruction Type:Patient Education Patient Instructions Indication:Non-smoker Start:22-Dec-2018 Instruction Type:Provider Instructions for Treatment How to access health informa tion online Indication:Smoker Start:08-Dec-2018 Instruction Type:Patient Education How to access health informa tion online - Detail Indication:Smoker Start:08-Dec-2018 Instruction Type:Patient Education Patient Instructions Indication:Smoker Start:08-Dec-2018 Instruction Type:Provider Instructions for Treatment How to access health informa tion online Indication:BMI 30.0-30.9,adult Start:01-Dec-2018 Instruction Type:Patient Education How to access health informa tion online - Detail Indication:BMI 30.0-30.9,adult Start:01-Dec-2018 Instruction Type:Patient Education Patient Instructions Indication:BMI 30.0-30.9,adult Start:01-Dec-2018 Instruction Type:Provider Instructions for Treatment How to access health informa tion online Indication:Smoker Start:31-Oct-2018 Instruction Type:Patient Education How to access health informa tion online - Detail Indication:Smoker Start:31-Oct-2018 Instruction Type:Patient Education Patient Instructions Indication:Smoker Start:31-Oct-2018 Instruction Type:Provider Instructions for Treatment How to access health informa tion online Indication:BMI 34.0-34.9,adult Start:28-Oct-2018 Instruction Type:Patient Education How to access health informa tion online - Detail Indication:BMI 34.0-34.9,adult Start:28-Oct-2018 Instruction Type:Patient Education Patient Instructions Indication:BMI 34.0-34.9,adult Start:28-Oct-2018 Instruction Type:Provider Instructions for Treatment How to access health informa tion online Indication:Smoker Start:11-Sep-2018 Instruction Type:Patient Education How to access health informa tion online - Detail Indication:Smoker Start:11-Sep-2018 Instruction Type:Patient Education Patient Instructions Indication:Smoker Start:11-Sep-2018 Instruction Type:Provider Instructions for Treatment How to access health informa tion online Indication:CAD, multiple vessel Start:26-Aug-2018 Instruction Type:Patient Education How to access health informa tion online - Detail Indication:CAD, multiple vessel Start:26-Aug-2018 Instruction Type:Patient Education Name Dates Details How to access health informa tion online Indication:BMI 32.0-32.9,adult Start:01-Feb-2020 Instruction Type:Patient Education How to access health informa tion online - Detail Indication:BMI 32.0-32.9,adult Start:01-Feb-2020 Instruction Type:Patient Education Patient Instructions Indication:BMI 32.0-32.9,adult Start:01-Feb-2020 Instruction Type:Provider Instructions for Treatment How to access health informa tion online Indication:BMI 33.0-33.9,adult Start:11-Jan-2020 Instruction Type:Patient Education How to access health informa tion online - Detail Indication:BMI 33.0-33.9,adult Start:11-Jan-2020 Instruction Type:Patient Education Patient Instructions Indication:BMI 33.0-33.9,adult Start:11-Jan-2020 Instruction Type:Provider Instructions for Treatment How to access health informa tion online Indication:BMI 34.0-34.9,adult Start:24-Dec-2019 Instruction Type:Patient Education How to access health informa tion online - Detail Indication:BMI 34.0-34.9,adult Start:24-Dec-2019 Instruction Type:Patient Education Patient Instructions Indication:BMI 34.0-34.9,adult Start:24-Dec-2019 Instruction Type:Provider Instructions for Treatment How to access health informa tion online Indication:BMI 31.0-31.9,adult Start:13-Apr-2019 Instruction Type:Patient Education How to access health informa tion online - Detail Indication:BMI 31.0-31.9,adult Start:13-Apr-2019 Instruction Type:Patient Education Patient Instructions Indication:BMI 31.0-31.9,adult Start:13-Apr-2019 Instruction Type:Provider Instructions for Treatment How to access health informa tion online Indication:Non-smoker Start:12-Jan-2019 Instruction Type:Patient Education How to access health informa tion online - Detail Indication:Non-smoker Start:12-Jan-2019 Instruction Type:Patient Education Patient Instructions Indication:Non-smoker Start:12-Jan-2019 Instruction Type:Provider Instructions for Treatment How to access health informa tion online Indication:Non-smoker Start:22-Dec-2018 Instruction Type:Patient Education How to access health informa tion online - Detail Indication:Non-smoker Start:22-Dec-2018 Instruction Type:Patient Education Patient Instructions Indication:Non-smoker Start:22-Dec-2018 Instruction Type:Provider Instructions for Treatment How to access health informa tion online Indication:Smoker Start:08-Dec-2018 Instruction Type:Patient Education How to access health informa tion online - Detail Indication:Smoker Start:08-Dec-2018 Instruction Type:Patient Education Patient Instructions Indication:Smoker Start:08-Dec-2018 Instruction Type:Provider Instructions for Treatment How to access health informa tion online Indication:BMI 30.0-30.9,adult Start:01-Dec-2018 Instruction Type:Patient Education How to access health informa tion online - Detail Indication:BMI 30.0-30.9,adult Start:01-Dec-2018 Instruction Type:Patient Education Patient Instructions Indication:BMI 30.0-30.9,adult Start:01-Dec-2018 Instruction Type:Provider Instructions for Treatment How to access health informa tion online Indication:Smoker Start:31-Oct-2018 Instruction Type:Patient Education How to access health informa tion online - Detail Indication:Smoker Start:31-Oct-2018 Instruction Type:Patient Education Patient Instructions Indication:Smoker Start:31-Oct-2018 Instruction Type:Provider Instructions for Treatment How to access health informa tion online Indication:BMI 34.0-34.9,adult Start:28-Oct-2018 Instruction Type:Patient Education How to access health informa tion online - Detail Indication:BMI 34.0-34.9,adult Start:28-Oct-2018 Instruction Type:Patient Education Patient Instructions Indication:BMI 34.0-34.9,adult Start:28-Oct-2018 Instruction Type:Provider Instructions for Treatment How to access health informa tion online Indication:Smoker Start:11-Sep-2018 Instruction Type:Patient Education How to access health informa tion online - Detail Indication:Smoker Start:11-Sep-2018 Instruction Type:Patient Education Patient Instructions Indication:Smoker Start:11-Sep-2018 Instruction Type:Provider Instructions for Treatment How to access health informa tion online Indication:CAD, multiple vessel Start:26-Aug-2018 Instruction Type:Patient Education How to access health informa tion online - Detail Indication:CAD, multiple vessel Start:26-Aug-2018 Instruction Type:Patient Education Name Dates Details How to access health informa tion online Indication:BMI 32.0-32.9,adult Start:01-Feb-2020 Instruction Type:Patient Education How to access health informa tion online - Detail Indication:BMI 32.0-32.9,adult Start:01-Feb-2020 Instruction Type:Patient Education Patient Instructions Indication:BMI 32.0-32.9,adult Start:01-Feb-2020 Instruction Type:Provider Instructions for Treatment How to access health informa tion online Indication:BMI 33.0-33.9,adult Start:11-Jan-2020 Instruction Type:Patient Education How to access health informa tion online - Detail Indication:BMI 33.0-33.9,adult Start:11-Jan-2020 Instruction Type:Patient Education Patient Instructions Indication:BMI 33.0-33.9,adult Start:11-Jan-2020 Instruction Type:Provider Instructions for Treatment How to access health informa tion online Indication:BMI 34.0-34.9,adult Start:24-Dec-2019 Instruction Type:Patient Education How to access health informa tion online - Detail Indication:BMI 34.0-34.9,adult Start:24-Dec-2019 Instruction Type:Patient Education Patient Instructions Indication:BMI 34.0-34.9,adult Start:24-Dec-2019 Instruction Type:Provider Instructions for Treatment How to access health informa tion online Indication:BMI 31.0-31.9,adult Start:13-Apr-2019 Instruction Type:Patient Education How to access health informa tion online - Detail Indication:BMI 31.0-31.9,adult Start:13-Apr-2019 Instruction Type:Patient Education Patient Instructions Indication:BMI 31.0-31.9,adult Start:13-Apr-2019 Instruction Type:Provider Instructions for Treatment How to access health informa tion online Indication:Non-smoker Start:12-Jan-2019 Instruction Type:Patient Education How to access health informa tion online - Detail Indication:Non-smoker Start:12-Jan-2019 Instruction Type:Patient Education Patient Instructions Indication:Non-smoker Start:12-Jan-2019 Instruction Type:Provider Instructions for Treatment How to access health informa tion online Indication:Non-smoker Start:22-Dec-2018 Instruction Type:Patient Education How to access health informa tion online - Detail Indication:Non-smoker Start:22-Dec-2018 Instruction Type:Patient Education Patient Instructions Indication:Non-smoker Start:22-Dec-2018 Instruction Type:Provider Instructions for Treatment How to access health informa tion online Indication:Smoker Start:08-Dec-2018 Instruction Type:Patient Education How to access health informa tion online - Detail Indication:Smoker Start:08-Dec-2018 Instruction Type:Patient Education Patient Instructions Indication:Smoker Start:08-Dec-2018 Instruction Type:Provider Instructions for Treatment How to access health informa tion online Indication:BMI 30.0-30.9,adult Start:01-Dec-2018 Instruction Type:Patient Education How to access health informa tion online - Detail Indication:BMI 30.0-30.9,adult Start:01-Dec-2018 Instruction Type:Patient Education Patient Instructions Indication:BMI 30.0-30.9,adult Start:01-Dec-2018 Instruction Type:Provider Instructions for Treatment How to access health informa tion online Indication:Smoker Start:31-Oct-2018 Instruction Type:Patient Education How to access health informa tion online - Detail Indication:Smoker Start:31-Oct-2018 Instruction Type:Patient Education Patient Instructions Indication:Smoker Start:31-Oct-2018 Instruction Type:Provider Instructions for Treatment How to access health informa tion online Indication:BMI 34.0-34.9,adult Start:28-Oct-2018 Instruction Type:Patient Education How to access health informa tion online - Detail Indication:BMI 34.0-34.9,adult Start:28-Oct-2018 Instruction Type:Patient Education Patient Instructions Indication:BMI 34.0-34.9,adult Start:28-Oct-2018 Instruction Type:Provider Instructions for Treatment How to access health informa tion online Indication:Smoker Start:11-Sep-2018 Instruction Type:Patient Education How to access health informa tion online - Detail Indication:Smoker Start:11-Sep-2018 Instruction Type:Patient Education Patient Instructions Indication:Smoker Start:11-Sep-2018 Instruction Type:Provider Instructions for Treatment How to access health informa tion online Indication:CAD, multiple vessel Start:26-Aug-2018 Instruction Type:Patient Education How to access health informa tion online - Detail Indication:CAD, multiple vessel Start:26-Aug-2018 Instruction Type:Patient Education Name Dates Details How to access health informa tion online Indication:BMI 32.0-32.9,adult Start:01-Feb-2020 Instruction Type:Patient Education How to access health informa tion online - Detail Indication:BMI 32.0-32.9,adult Start:01-Feb-2020 Instruction Type:Patient Education Patient Instructions Indication:BMI 32.0-32.9,adult Start:01-Feb-2020 Instruction Type:Provider Instructions for Treatment How to access health informa tion online Indication:BMI 33.0-33.9,adult Start:11-Jan-2020 Instruction Type:Patient Education How to access health informa tion online - Detail Indication:BMI 33.0-33.9,adult Start:11-Jan-2020 Instruction Type:Patient Education Patient Instructions Indication:BMI 33.0-33.9,adult Start:11-Jan-2020 Instruction Type:Provider Instructions for Treatment How to access health informa tion online Indication:BMI 34.0-34.9,adult Start:24-Dec-2019 Instruction Type:Patient Education How to access health informa tion online - Detail Indication:BMI 34.0-34.9,adult Start:24-Dec-2019 Instruction Type:Patient Education Patient Instructions Indication:BMI 34.0-34.9,adult Start:24-Dec-2019 Instruction Type:Provider Instructions for Treatment How to access health informa tion online Indication:BMI 31.0-31.9,adult Start:13-Apr-2019 Instruction Type:Patient Education How to access health informa tion online - Detail Indication:BMI 31.0-31.9,adult Start:13-Apr-2019 Instruction Type:Patient Education Patient Instructions Indication:BMI 31.0-31.9,adult Start:13-Apr-2019 Instruction Type:Provider Instructions for Treatment How to access health informa tion online Indication:Non-smoker Start:12-Jan-2019 Instruction Type:Patient Education How to access health informa tion online - Detail Indication:Non-smoker Start:12-Jan-2019 Instruction Type:Patient Education Patient Instructions Indication:Non-smoker Start:12-Jan-2019 Instruction Type:Provider Instructions for Treatment How to access health informa tion online Indication:Non-smoker Start:22-Dec-2018 Instruction Type:Patient Education How to access health informa tion online - Detail Indication:Non-smoker Start:22-Dec-2018 Instruction Type:Patient Education Patient Instructions Indication:Non-smoker Start:22-Dec-2018 Instruction Type:Provider Instructions for Treatment How to access health informa tion online Indication:Smoker Start:08-Dec-2018 Instruction Type:Patient Education How to access health informa tion online - Detail Indication:Smoker Start:08-Dec-2018 Instruction Type:Patient Education Patient Instructions Indication:Smoker Start:08-Dec-2018 Instruction Type:Provider Instructions for Treatment How to access health informa tion online Indication:BMI 30.0-30.9,adult Start:01-Dec-2018 Instruction Type:Patient Education How to access health informa tion online - Detail Indication:BMI 30.0-30.9,adult Start:01-Dec-2018 Instruction Type:Patient Education Patient Instructions Indication:BMI 30.0-30.9,adult Start:01-Dec-2018 Instruction Type:Provider Instructions for Treatment How to access health informa tion online Indication:Smoker Start:31-Oct-2018 Instruction Type:Patient Education How to access health informa tion online - Detail Indication:Smoker Start:31-Oct-2018 Instruction Type:Patient Education Patient Instructions Indication:Smoker Start:31-Oct-2018 Instruction Type:Provider Instructions for Treatment How to access health informa tion online Indication:BMI 34.0-34.9,adult Start:28-Oct-2018 Instruction Type:Patient Education How to access health informa tion online - Detail Indication:BMI 34.0-34.9,adult Start:28-Oct-2018 Instruction Type:Patient Education Patient Instructions Indication:BMI 34.0-34.9,adult Start:28-Oct-2018 Instruction Type:Provider Instructions for Treatment How to access health informa tion online Indication:Smoker Start:11-Sep-2018 Instruction Type:Patient Education How to access health informa tion online - Detail Indication:Smoker Start:11-Sep-2018 Instruction Type:Patient Education Patient Instructions Indication:Smoker Start:11-Sep-2018 Instruction Type:Provider Instructions for Treatment How to access health informa tion online Indication:CAD, multiple vessel Start:26-Aug-2018 Instruction Type:Patient Education How to access health informa tion online - Detail Indication:CAD, multiple vessel Start:26-Aug-2018 Instruction Type:Patient Education Name Dates Details How to access health informa tion online Indication:BMI 33.0-33.9,adult Start:25-Apr-2020 Instruction Type:Patient Education How to access health informa tion online - Detail Indication:BMI 33.0-33.9,adult Start:25-Apr-2020 Instruction Type:Patient Education Patient Instructions Indication:BMI 33.0-33.9,adult Start:25-Apr-2020 Instruction Type:Provider Instructions for Treatment How to access health informa tion online Indication:BMI 32.0-32.9,adult Start:01-Feb-2020 Instruction Type:Patient Education How to access health informa tion online - Detail Indication:BMI 32.0-32.9,adult Start:01-Feb-2020 Instruction Type:Patient Education Patient Instructions Indication:BMI 32.0-32.9,adult Start:01-Feb-2020 Instruction Type:Provider Instructions for Treatment How to access health informa tion online Indication:BMI 33.0-33.9,adult Start:11-Jan-2020 Instruction Type:Patient Education How to access health informa tion online - Detail Indication:BMI 33.0-33.9,adult Start:11-Jan-2020 Instruction Type:Patient Education Patient Instructions Indication:BMI 33.0-33.9,adult Start:11-Jan-2020 Instruction Type:Provider Instructions for Treatment How to access health informa tion online Indication:BMI 34.0-34.9,adult Start:24-Dec-2019 Instruction Type:Patient Education How to access health informa tion online - Detail Indication:BMI 34.0-34.9,adult Start:24-Dec-2019 Instruction Type:Patient Education Patient Instructions Indication:BMI 34.0-34.9,adult Start:24-Dec-2019 Instruction Type:Provider Instructions for Treatment How to access health informa tion online Indication:BMI 31.0-31.9,adult Start:13-Apr-2019 Instruction Type:Patient Education How to access health informa tion online - Detail Indication:BMI 31.0-31.9,adult Start:13-Apr-2019 Instruction Type:Patient Education Patient Instructions Indication:BMI 31.0-31.9,adult Start:13-Apr-2019 Instruction Type:Provider Instructions for Treatment How to access health informa tion online Indication:Non-smoker Start:12-Jan-2019 Instruction Type:Patient Education How to access health informa tion online - Detail Indication:Non-smoker Start:12-Jan-2019 Instruction Type:Patient Education Patient Instructions Indication:Non-smoker Start:12-Jan-2019 Instruction Type:Provider Instructions for Treatment How to access health informa tion online Indication:Non-smoker Start:22-Dec-2018 Instruction Type:Patient Education How to access health informa tion online - Detail Indication:Non-smoker Start:22-Dec-2018 Instruction Type:Patient Education Patient Instructions Indication:Non-smoker Start:22-Dec-2018 Instruction Type:Provider Instructions for Treatment How to access health informa tion online Indication:Smoker Start:08-Dec-2018 Instruction Type:Patient Education How to access health informa tion online - Detail Indication:Smoker Start:08-Dec-2018 Instruction Type:Patient Education Patient Instructions Indication:Smoker Start:08-Dec-2018 Instruction Type:Provider Instructions for Treatment How to access health informa tion online Indication:BMI 30.0-30.9,adult Start:01-Dec-2018 Instruction Type:Patient Education How to access health informa tion online - Detail Indication:BMI 30.0-30.9,adult Start:01-Dec-2018 Instruction Type:Patient Education Patient Instructions Indication:BMI 30.0-30.9,adult Start:01-Dec-2018 Instruction Type:Provider Instructions for Treatment How to access health informa tion online Indication:Smoker Start:31-Oct-2018 Instruction Type:Patient Education How to access health informa tion online - Detail Indication:Smoker Start:31-Oct-2018 Instruction Type:Patient Education Patient Instructions Indication:Smoker Start:31-Oct-2018 Instruction Type:Provider Instructions for Treatment How to access health informa tion online Indication:BMI 34.0-34.9,adult Start:28-Oct-2018 Instruction Type:Patient Education How to access health informa tion online - Detail Indication:BMI 34.0-34.9,adult Start:28-Oct-2018 Instruction Type:Patient Education Patient Instructions Indication:BMI 34.0-34.9,adult Start:28-Oct-2018 Instruction Type:Provider Instructions for Treatment How to access health informa tion online Indication:Smoker Start:11-Sep-2018 Instruction Type:Patient Education How to access health informa tion online - Detail Indication:Smoker Start:11-Sep-2018 Instruction Type:Patient Education Patient Instructions Indication:Smoker Start:11-Sep-2018 Instruction Type:Provider Instructions for Treatment How to access health informa tion online Indication:CAD, multiple vessel Start:26-Aug-2018 Instruction Type:Patient Education How to access health informa tion online - Detail Indication:CAD, multiple vessel Start:26-Aug-2018 Instruction Type:Patient Education Name Dates Details How to access health informa tion online Indication:Smoker Start:02-May-2020 Instruction Type:Patient Education How to access health informa tion online - Detail Indication:Smoker Start:02-May-2020 Instruction Type:Patient Education Patient Instructions Indication:Smoker Start:02-May-2020 Instruction Type:Provider Instructions for Treatment How to access health informa tion online Indication:BMI 33.0-33.9,adult Start:25-Apr-2020 Instruction Type:Patient Education How to access health informa tion online - Detail Indication:BMI 33.0-33.9,adult Start:25-Apr-2020 Instruction Type:Patient Education Patient Instructions Indication:BMI 33.0-33.9,adult Start:25-Apr-2020 Instruction Type:Provider Instructions for Treatment How to access health informa tion online Indication:BMI 32.0-32.9,adult Start:01-Feb-2020 Instruction Type:Patient Education How to access health informa tion online - Detail Indication:BMI 32.0-32.9,adult Start:01-Feb-2020 Instruction Type:Patient Education Patient Instructions Indication:BMI 32.0-32.9,adult Start:01-Feb-2020 Instruction Type:Provider Instructions for Treatment How to access health informa tion online Indication:BMI 33.0-33.9,adult Start:11-Jan-2020 Instruction Type:Patient Education How to access health informa tion online - Detail Indication:BMI 33.0-33.9,adult Start:11-Jan-2020 Instruction Type:Patient Education Patient Instructions Indication:BMI 33.0-33.9,adult Start:11-Jan-2020 Instruction Type:Provider Instructions for Treatment How to access health informa tion online Indication:BMI 34.0-34.9,adult Start:24-Dec-2019 Instruction Type:Patient Education How to access health informa tion online - Detail Indication:BMI 34.0-34.9,adult Start:24-Dec-2019 Instruction Type:Patient Education Patient Instructions Indication:BMI 34.0-34.9,adult Start:24-Dec-2019 Instruction Type:Provider Instructions for Treatment How to access health informa tion online Indication:BMI 31.0-31.9,adult Start:13-Apr-2019 Instruction Type:Patient Education How to access health informa tion online - Detail Indication:BMI 31.0-31.9,adult Start:13-Apr-2019 Instruction Type:Patient Education Patient Instructions Indication:BMI 31.0-31.9,adult Start:13-Apr-2019 Instruction Type:Provider Instructions for Treatment How to access health informa tion online Indication:Non-smoker Start:12-Jan-2019 Instruction Type:Patient Education How to access health informa tion online - Detail Indication:Non-smoker Start:12-Jan-2019 Instruction Type:Patient Education Patient Instructions Indication:Non-smoker Start:12-Jan-2019 Instruction Type:Provider Instructions for Treatment How to access health informa tion online Indication:Non-smoker Start:22-Dec-2018 Instruction Type:Patient Education How to access health informa tion online - Detail Indication:Non-smoker Start:22-Dec-2018 Instruction Type:Patient Education Patient Instructions Indication:Non-smoker Start:22-Dec-2018 Instruction Type:Provider Instructions for Treatment How to access health informa tion online Indication:Smoker Start:08-Dec-2018 Instruction Type:Patient Education How to access health informa tion online - Detail Indication:Smoker Start:08-Dec-2018 Instruction Type:Patient Education Patient Instructions Indication:Smoker Start:08-Dec-2018 Instruction Type:Provider Instructions for Treatment How to access health informa tion online Indication:BMI 30.0-30.9,adult Start:01-Dec-2018 Instruction Type:Patient Education How to access health informa tion online - Detail Indication:BMI 30.0-30.9,adult Start:01-Dec-2018 Instruction Type:Patient Education Patient Instructions Indication:BMI 30.0-30.9,adult Start:01-Dec-2018 Instruction Type:Provider Instructions for Treatment How to access health informa tion online Indication:Smoker Start:31-Oct-2018 Instruction Type:Patient Education How to access health informa tion online - Detail Indication:Smoker Start:31-Oct-2018 Instruction Type:Patient Education Patient Instructions Indication:Smoker Start:31-Oct-2018 Instruction Type:Provider Instructions for Treatment How to access health informa tion online Indication:BMI 34.0-34.9,adult Start:28-Oct-2018 Instruction Type:Patient Education How to access health informa tion online - Detail Indication:BMI 34.0-34.9,adult Start:28-Oct-2018 Instruction Type:Patient Education Patient Instructions Indication:BMI 34.0-34.9,adult Start:28-Oct-2018 Instruction Type:Provider Instructions for Treatment How to access health informa tion online Indication:Smoker Start:11-Sep-2018 Instruction Type:Patient Education How to access health informa tion online - Detail Indication:Smoker Start:11-Sep-2018 Instruction Type:Patient Education Patient Instructions Indication:Smoker Start:11-Sep-2018 Instruction Type:Provider Instructions for Treatment How to access health informa tion online Indication:CAD, multiple vessel Start:26-Aug-2018 Instruction Type:Patient Education How to access health informa tion online - Detail Indication:CAD, multiple vessel Start:26-Aug-2018 Instruction Type:Patient Education Name Dates Details CAD, multiple vessel : How t o access health information online Indication:CAD, multiple vessel CAD, multiple vessel : How t o access health information online - Detail Indication:CAD, multiple vessel Name Dates Details How to access health informa tion online Indication:Smoker Start:02-May-2020 Instruction Type:Patient Education How to access health informa tion online - Detail Indication:Smoker Start:02-May-2020 Instruction Type:Patient Education Patient Instructions Indication:Smoker Start:02-May-2020 Instruction Type:Provider Instructions for Treatment How to access health informa tion online Indication:BMI 33.0-33.9,adult Start:25-Apr-2020 Instruction Type:Patient Education How to access health informa tion online - Detail Indication:BMI 33.0-33.9,adult Start:25-Apr-2020 Instruction Type:Patient Education Patient Instructions Indication:BMI 33.0-33.9,adult Start:25-Apr-2020 Instruction Type:Provider Instructions for Treatment How to access health informa tion online Indication:BMI 32.0-32.9,adult Start:01-Feb-2020 Instruction Type:Patient Education How to access health informa tion online - Detail Indication:BMI 32.0-32.9,adult Start:01-Feb-2020 Instruction Type:Patient Education Patient Instructions Indication:BMI 32.0-32.9,adult Start:01-Feb-2020 Instruction Type:Provider Instructions for Treatment How to access health informa tion online Indication:BMI 33.0-33.9,adult Start:11-Jan-2020 Instruction Type:Patient Education How to access health informa tion online - Detail Indication:BMI 33.0-33.9,adult Start:11-Jan-2020 Instruction Type:Patient Education Patient Instructions Indication:BMI 33.0-33.9,adult Start:11-Jan-2020 Instruction Type:Provider Instructions for Treatment How to access health informa tion online Indication:BMI 34.0-34.9,adult Start:24-Dec-2019 Instruction Type:Patient Education How to access health informa tion online - Detail Indication:BMI 34.0-34.9,adult Start:24-Dec-2019 Instruction Type:Patient Education Patient Instructions Indication:BMI 34.0-34.9,adult Start:24-Dec-2019 Instruction Type:Provider Instructions for Treatment How to access health informa tion online Indication:BMI 31.0-31.9,adult Start:13-Apr-2019 Instruction Type:Patient Education How to access health informa tion online - Detail Indication:BMI 31.0-31.9,adult Start:13-Apr-2019 Instruction Type:Patient Education Patient Instructions Indication:BMI 31.0-31.9,adult Start:13-Apr-2019 Instruction Type:Provider Instructions for Treatment How to access health informa tion online Indication:Non-smoker Start:12-Jan-2019 Instruction Type:Patient Education How to access health informa tion online - Detail Indication:Non-smoker Start:12-Jan-2019 Instruction Type:Patient Education Patient Instructions Indication:Non-smoker Start:12-Jan-2019 Instruction Type:Provider Instructions for Treatment How to access health informa tion online Indication:Non-smoker Start:22-Dec-2018 Instruction Type:Patient Education How to access health informa tion online - Detail Indication:Non-smoker Start:22-Dec-2018 Instruction Type:Patient Education Patient Instructions Indication:Non-smoker Start:22-Dec-2018 Instruction Type:Provider Instructions for Treatment How to access health informa tion online Indication:Smoker Start:08-Dec-2018 Instruction Type:Patient Education How to access health informa tion online - Detail Indication:Smoker Start:08-Dec-2018 Instruction Type:Patient Education Patient Instructions Indication:Smoker Start:08-Dec-2018 Instruction Type:Provider Instructions for Treatment How to access health informa tion online Indication:BMI 30.0-30.9,adult Start:01-Dec-2018 Instruction Type:Patient Education How to access health informa tion online - Detail Indication:BMI 30.0-30.9,adult Start:01-Dec-2018 Instruction Type:Patient Education Patient Instructions Indication:BMI 30.0-30.9,adult Start:01-Dec-2018 Instruction Type:Provider Instructions for Treatment How to access health informa tion online Indication:Smoker Start:31-Oct-2018 Instruction Type:Patient Education How to access health informa tion online - Detail Indication:Smoker Start:31-Oct-2018 Instruction Type:Patient Education Patient Instructions Indication:Smoker Start:31-Oct-2018 Instruction Type:Provider Instructions for Treatment How to access health informa tion online Indication:BMI 34.0-34.9,adult Start:28-Oct-2018 Instruction Type:Patient Education How to access health informa tion online - Detail Indication:BMI 34.0-34.9,adult Start:28-Oct-2018 Instruction Type:Patient Education Patient Instructions Indication:BMI 34.0-34.9,adult Start:28-Oct-2018 Instruction Type:Provider Instructions for Treatment How to access health informa tion online Indication:Smoker Start:11-Sep-2018 Instruction Type:Patient Education How to access health informa tion online - Detail Indication:Smoker Start:11-Sep-2018 Instruction Type:Patient Education Patient Instructions Indication:Smoker Start:11-Sep-2018 Instruction Type:Provider Instructions for Treatment How to access health informa tion online Indication:CAD, multiple vessel Start:26-Aug-2018 Instruction Type:Patient Education How to access health informa tion online - Detail Indication:CAD, multiple vessel Start:26-Aug-2018 Instruction Type:Patient Education Name Dates Details How to access health informa tion online Indication:BMI 32.0-32.9,adult Start:01-Feb-2020 Instruction Type:Patient Education How to access health informa tion online - Detail Indication:BMI 32.0-32.9,adult Start:01-Feb-2020 Instruction Type:Patient Education Patient Instructions Indication:BMI 32.0-32.9,adult Start:01-Feb-2020 Instruction Type:Provider Instructions for Treatment How to access health informa tion online Indication:BMI 33.0-33.9,adult Start:11-Jan-2020 Instruction Type:Patient Education How to access health informa tion online - Detail Indication:BMI 33.0-33.9,adult Start:11-Jan-2020 Instruction Type:Patient Education Patient Instructions Indication:BMI 33.0-33.9,adult Start:11-Jan-2020 Instruction Type:Provider Instructions for Treatment How to access health informa tion online Indication:BMI 34.0-34.9,adult Start:24-Dec-2019 Instruction Type:Patient Education How to access health informa tion online - Detail Indication:BMI 34.0-34.9,adult Start:24-Dec-2019 Instruction Type:Patient Education Patient Instructions Indication:BMI 34.0-34.9,adult Start:24-Dec-2019 Instruction Type:Provider Instructions for Treatment How to access health informa tion online Indication:BMI 31.0-31.9,adult Start:13-Apr-2019 Instruction Type:Patient Education How to access health informa tion online - Detail Indication:BMI 31.0-31.9,adult Start:13-Apr-2019 Instruction Type:Patient Education Patient Instructions Indication:BMI 31.0-31.9,adult Start:13-Apr-2019 Instruction Type:Provider Instructions for Treatment How to access health informa tion online Indication:Non-smoker Start:12-Jan-2019 Instruction Type:Patient Education How to access health informa tion online - Detail Indication:Non-smoker Start:12-Jan-2019 Instruction Type:Patient Education Patient Instructions Indication:Non-smoker Start:12-Jan-2019 Instruction Type:Provider Instructions for Treatment How to access health informa tion online Indication:Non-smoker Start:22-Dec-2018 Instruction Type:Patient Education How to access health informa tion online - Detail Indication:Non-smoker Start:22-Dec-2018 Instruction Type:Patient Education Patient Instructions Indication:Non-smoker Start:22-Dec-2018 Instruction Type:Provider Instructions for Treatment How to access health informa tion online Indication:Smoker Start:08-Dec-2018 Instruction Type:Patient Education How to access health informa tion online - Detail Indication:Smoker Start:08-Dec-2018 Instruction Type:Patient Education Patient Instructions Indication:Smoker Start:08-Dec-2018 Instruction Type:Provider Instructions for Treatment How to access health informa tion online Indication:BMI 30.0-30.9,adult Start:01-Dec-2018 Instruction Type:Patient Education How to access health informa tion online - Detail Indication:BMI 30.0-30.9,adult Start:01-Dec-2018 Instruction Type:Patient Education Patient Instructions Indication:BMI 30.0-30.9,adult Start:01-Dec-2018 Instruction Type:Provider Instructions for Treatment How to access health informa tion online Indication:Smoker Start:31-Oct-2018 Instruction Type:Patient Education How to access health informa tion online - Detail Indication:Smoker Start:31-Oct-2018 Instruction Type:Patient Education Patient Instructions Indication:Smoker Start:31-Oct-2018 Instruction Type:Provider Instructions for Treatment How to access health informa tion online Indication:BMI 34.0-34.9,adult Start:28-Oct-2018 Instruction Type:Patient Education How to access health informa tion online - Detail Indication:BMI 34.0-34.9,adult Start:28-Oct-2018 Instruction Type:Patient Education Patient Instructions Indication:BMI 34.0-34.9,adult Start:28-Oct-2018 Instruction Type:Provider Instructions for Treatment How to access health informa tion online Indication:Smoker Start:11-Sep-2018 Instruction Type:Patient Education How to access health informa tion online - Detail Indication:Smoker Start:11-Sep-2018 Instruction Type:Patient Education Patient Instructions Indication:Smoker Start:11-Sep-2018 Instruction Type:Provider Instructions for Treatment How to access health informa tion online Indication:CAD, multiple vessel Start:26-Aug-2018 Instruction Type:Patient Education How to access health informa tion online - Detail Indication:CAD, multiple vessel Start:26-Aug-2018 Instruction Type:Patient Education Name Dates Details How to access health informa tion online Indication:Non-smoker Start:12-Jan-2019 Instruction Type:Patient Education How to access health informa tion online - Detail Indication:Non-smoker Start:12-Jan-2019 Instruction Type:Patient Education Patient Instructions Indication:Non-smoker Start:12-Jan-2019 Instruction Type:Provider Instructions for Treatment How to access health informa tion online Indication:Non-smoker Start:22-Dec-2018 Instruction Type:Patient Education How to access health informa tion online - Detail Indication:Non-smoker Start:22-Dec-2018 Instruction Type:Patient Education Patient Instructions Indication:Non-smoker Start:22-Dec-2018 Instruction Type:Provider Instructions for Treatment How to access health informa tion online Indication:Smoker Start:08-Dec-2018 Instruction Type:Patient Education How to access health informa tion online - Detail Indication:Smoker Start:08-Dec-2018 Instruction Type:Patient Education Patient Instructions Indication:Smoker Start:08-Dec-2018 Instruction Type:Provider Instructions for Treatment How to access health informa tion online Indication:BMI 30.0-30.9,adult Start:01-Dec-2018 Instruction Type:Patient Education How to access health informa tion online - Detail Indication:BMI 30.0-30.9,adult Start:01-Dec-2018 Instruction Type:Patient Education Patient Instructions Indication:BMI 30.0-30.9,adult Start:01-Dec-2018 Instruction Type:Provider Instructions for Treatment How to access health informa tion online Indication:Smoker Start:31-Oct-2018 Instruction Type:Patient Education How to access health informa tion online - Detail Indication:Smoker Start:31-Oct-2018 Instruction Type:Patient Education Patient Instructions Indication:Smoker Start:31-Oct-2018 Instruction Type:Provider Instructions for Treatment How to access health informa tion online Indication:BMI 34.0-34.9,adult Start:28-Oct-2018 Instruction Type:Patient Education How to access health informa tion online - Detail Indication:BMI 34.0-34.9,adult Start:28-Oct-2018 Instruction Type:Patient Education Patient Instructions Indication:BMI 34.0-34.9,adult Start:28-Oct-2018 Instruction Type:Provider Instructions for Treatment How to access health informa tion online Indication:Smoker Start:11-Sep-2018 Instruction Type:Patient Education How to access health informa tion online - Detail Indication:Smoker Start:11-Sep-2018 Instruction Type:Patient Education Patient Instructions Indication:Smoker Start:11-Sep-2018 Instruction Type:Provider Instructions for Treatment How to access health informa tion online Indication:CAD, multiple vessel Start:26-Aug-2018 Instruction Type:Patient Education How to access health informa tion online - Detail Indication:CAD, multiple vessel Start:26-Aug-2018 Instruction Type:Patient Education Name Dates Details BMI 34.0-34.9,adult : How to access health information online Indication:BMI 34.0-34.9,adult BMI 34.0-34.9,adult : How to access health information online - Detail Indication:BMI 34.0-34.9,adult BMI 34.0-34.9,adult : Patien t Instructions Indication:BMI 34.0-34.9,adult Smoker : How to access healt h information online Indication:Smoker Smoker : How to access healt h information online - Detail Indication:Smoker Smoker : Patient Instruction s Indication:Smoker CAD, multiple vessel : How t o access health information online Indication:CAD, multiple vessel CAD, multiple vessel : How t o access health information online - Detail Indication:CAD, multiple vessel Name Dates Details Smoker : How to access healt h information online Indication:Smoker Smoker : How to access healt h information online - Detail Indication:Smoker Smoker : Patient Instruction s Indication:Smoker BMI 34.0-34.9,adult : How to access health information online Indication:BMI 34.0-34.9,adult BMI 34.0-34.9,adult : How to access health information online - Detail Indication:BMI 34.0-34.9,adult BMI 34.0-34.9,adult : Patien t Instructions Indication:BMI 34.0-34.9,adult CAD, multiple vessel : How t o access health information online Indication:CAD, multiple vessel CAD, multiple vessel : How t o access health information online - Detail Indication:CAD, multiple vessel Name Dates Details How to access health informa tion online Indication:BMI 32.0-32.9,adult Start:01-Feb-2020 Instruction Type:Patient Education How to access health informa tion online - Detail Indication:BMI 32.0-32.9,adult Start:01-Feb-2020 Instruction Type:Patient Education Patient Instructions Indication:BMI 32.0-32.9,adult Start:01-Feb-2020 Instruction Type:Provider Instructions for Treatment How to access health informa tion online Indication:BMI 33.0-33.9,adult Start:11-Jan-2020 Instruction Type:Patient Education How to access health informa tion online - Detail Indication:BMI 33.0-33.9,adult Start:11-Jan-2020 Instruction Type:Patient Education Patient Instructions Indication:BMI 33.0-33.9,adult Start:11-Jan-2020 Instruction Type:Provider Instructions for Treatment How to access health informa tion online Indication:BMI 34.0-34.9,adult Start:24-Dec-2019 Instruction Type:Patient Education How to access health informa tion online - Detail Indication:BMI 34.0-34.9,adult Start:24-Dec-2019 Instruction Type:Patient Education Patient Instructions Indication:BMI 34.0-34.9,adult Start:24-Dec-2019 Instruction Type:Provider Instructions for Treatment How to access health informa tion online Indication:BMI 31.0-31.9,adult Start:13-Apr-2019 Instruction Type:Patient Education How to access health informa tion online - Detail Indication:BMI 31.0-31.9,adult Start:13-Apr-2019 Instruction Type:Patient Education Patient Instructions Indication:BMI 31.0-31.9,adult Start:13-Apr-2019 Instruction Type:Provider Instructions for Treatment How to access health informa tion online Indication:Non-smoker Start:12-Jan-2019 Instruction Type:Patient Education How to access health informa tion online - Detail Indication:Non-smoker Start:12-Jan-2019 Instruction Type:Patient Education Patient Instructions Indication:Non-smoker Start:12-Jan-2019 Instruction Type:Provider Instructions for Treatment How to access health informa tion online Indication:Non-smoker Start:22-Dec-2018 Instruction Type:Patient Education How to access health informa tion online - Detail Indication:Non-smoker Start:22-Dec-2018 Instruction Type:Patient Education Patient Instructions Indication:Non-smoker Start:22-Dec-2018 Instruction Type:Provider Instructions for Treatment How to access health informa tion online Indication:Smoker Start:08-Dec-2018 Instruction Type:Patient Education How to access health informa tion online - Detail Indication:Smoker Start:08-Dec-2018 Instruction Type:Patient Education Patient Instructions Indication:Smoker Start:08-Dec-2018 Instruction Type:Provider Instructions for Treatment How to access health informa tion online Indication:BMI 30.0-30.9,adult Start:01-Dec-2018 Instruction Type:Patient Education How to access health informa tion online - Detail Indication:BMI 30.0-30.9,adult Start:01-Dec-2018 Instruction Type:Patient Education Patient Instructions Indication:BMI 30.0-30.9,adult Start:01-Dec-2018 Instruction Type:Provider Instructions for Treatment How to access health informa tion online Indication:Smoker Start:31-Oct-2018 Instruction Type:Patient Education How to access health informa tion online - Detail Indication:Smoker Start:31-Oct-2018 Instruction Type:Patient Education Patient Instructions Indication:Smoker Start:31-Oct-2018 Instruction Type:Provider Instructions for Treatment How to access health informa tion online Indication:BMI 34.0-34.9,adult Start:28-Oct-2018 Instruction Type:Patient Education How to access health informa tion online - Detail Indication:BMI 34.0-34.9,adult Start:28-Oct-2018 Instruction Type:Patient Education Patient Instructions Indication:BMI 34.0-34.9,adult Start:28-Oct-2018 Instruction Type:Provider Instructions for Treatment How to access health informa tion online Indication:Smoker Start:11-Sep-2018 Instruction Type:Patient Education How to access health informa tion online - Detail Indication:Smoker Start:11-Sep-2018 Instruction Type:Patient Education Patient Instructions Indication:Smoker Start:11-Sep-2018 Instruction Type:Provider Instructions for Treatment How to access health informa tion online Indication:CAD, multiple vessel Start:26-Aug-2018 Instruction Type:Patient Education How to access health informa tion online - Detail Indication:CAD, multiple vessel Start:26-Aug-2018 Instruction Type:Patient Education Name Dates Details How to access health informa tion online Indication:Smoker Start:02-May-2020 Instruction Type:Patient Education How to access health informa tion online - Detail Indication:Smoker Start:02-May-2020 Instruction Type:Patient Education Patient Instructions Indication:Smoker Start:02-May-2020 Instruction Type:Provider Instructions for Treatment How to access health informa tion online Indication:BMI 33.0-33.9,adult Start:25-Apr-2020 Instruction Type:Patient Education How to access health informa tion online - Detail Indication:BMI 33.0-33.9,adult Start:25-Apr-2020 Instruction Type:Patient Education Patient Instructions Indication:BMI 33.0-33.9,adult Start:25-Apr-2020 Instruction Type:Provider Instructions for Treatment How to access health informa tion online Indication:BMI 32.0-32.9,adult Start:01-Feb-2020 Instruction Type:Patient Education How to access health informa tion online - Detail Indication:BMI 32.0-32.9,adult Start:01-Feb-2020 Instruction Type:Patient Education Patient Instructions Indication:BMI 32.0-32.9,adult Start:01-Feb-2020 Instruction Type:Provider Instructions for Treatment How to access health informa tion online Indication:BMI 33.0-33.9,adult Start:11-Jan-2020 Instruction Type:Patient Education How to access health informa tion online - Detail Indication:BMI 33.0-33.9,adult Start:11-Jan-2020 Instruction Type:Patient Education Patient Instructions Indication:BMI 33.0-33.9,adult Start:11-Jan-2020 Instruction Type:Provider Instructions for Treatment How to access health informa tion online Indication:BMI 34.0-34.9,adult Start:24-Dec-2019 Instruction Type:Patient Education How to access health informa tion online - Detail Indication:BMI 34.0-34.9,adult Start:24-Dec-2019 Instruction Type:Patient Education Patient Instructions Indication:BMI 34.0-34.9,adult Start:24-Dec-2019 Instruction Type:Provider Instructions for Treatment How to access health informa tion online Indication:BMI 31.0-31.9,adult Start:13-Apr-2019 Instruction Type:Patient Education How to access health informa tion online - Detail Indication:BMI 31.0-31.9,adult Start:13-Apr-2019 Instruction Type:Patient Education Patient Instructions Indication:BMI 31.0-31.9,adult Start:13-Apr-2019 Instruction Type:Provider Instructions for Treatment How to access health informa tion online Indication:Non-smoker Start:12-Jan-2019 Instruction Type:Patient Education How to access health informa tion online - Detail Indication:Non-smoker Start:12-Jan-2019 Instruction Type:Patient Education Patient Instructions Indication:Non-smoker Start:12-Jan-2019 Instruction Type:Provider Instructions for Treatment How to access health informa tion online Indication:Non-smoker Start:22-Dec-2018 Instruction Type:Patient Education How to access health informa tion online - Detail Indication:Non-smoker Start:22-Dec-2018 Instruction Type:Patient Education Patient Instructions Indication:Non-smoker Start:22-Dec-2018 Instruction Type:Provider Instructions for Treatment How to access health informa tion online Indication:Smoker Start:08-Dec-2018 Instruction Type:Patient Education How to access health informa tion online - Detail Indication:Smoker Start:08-Dec-2018 Instruction Type:Patient Education Patient Instructions Indication:Smoker Start:08-Dec-2018 Instruction Type:Provider Instructions for Treatment How to access health informa tion online Indication:BMI 30.0-30.9,adult Start:01-Dec-2018 Instruction Type:Patient Education How to access health informa tion online - Detail Indication:BMI 30.0-30.9,adult Start:01-Dec-2018 Instruction Type:Patient Education Patient Instructions Indication:BMI 30.0-30.9,adult Start:01-Dec-2018 Instruction Type:Provider Instructions for Treatment How to access health informa tion online Indication:Smoker Start:31-Oct-2018 Instruction Type:Patient Education How to access health informa tion online - Detail Indication:Smoker Start:31-Oct-2018 Instruction Type:Patient Education Patient Instructions Indication:Smoker Start:31-Oct-2018 Instruction Type:Provider Instructions for Treatment How to access health informa tion online Indication:BMI 34.0-34.9,adult Start:28-Oct-2018 Instruction Type:Patient Education How to access health informa tion online - Detail Indication:BMI 34.0-34.9,adult Start:28-Oct-2018 Instruction Type:Patient Education Patient Instructions Indication:BMI 34.0-34.9,adult Start:28-Oct-2018 Instruction Type:Provider Instructions for Treatment How to access health informa tion online Indication:Smoker Start:11-Sep-2018 Instruction Type:Patient Education How to access health informa tion online - Detail Indication:Smoker Start:11-Sep-2018 Instruction Type:Patient Education Patient Instructions Indication:Smoker Start:11-Sep-2018 Instruction Type:Provider Instructions for Treatment How to access health informa tion online Indication:CAD, multiple vessel Start:26-Aug-2018 Instruction Type:Patient Education How to access health informa tion online - Detail Indication:CAD, multiple vessel Start:26-Aug-2018 Instruction Type:Patient Education Chief Complaint and Reason for Visit Chief Complaint 6 mo f/u 3 MO - LABS PRIOR - BCR/ABL NEEDS TO BE BACK 3 MO - LABS PRIOR - BCR/ABL NEEDS TO BE BACK LLQ pain, cough Reason for Visit Chronic myeloid leuk emia Essential (primary) hypertension History of coronary artery stent placement Encounter for education Near syncope Chronic myeloid leukemia Chronic myeloid leukemia Chief Complaint 6 mo f/u 3 MO - LABS PRIOR - BCR/ABL NEEDS TO BE BACK 3 MO - LABS PRIOR - BCR/ABL NEEDS TO BE BACK LLQ pain, cough sob Reason for Visit Chronic myeloid leuk emia Essential (primary) hypertension History of coronary artery stent placement Encounter for education Near syncope Chronic myeloid leukemia Chronic myeloid leukemia Chief Complaint LLQ pain, cough sob S/P [facility] ER 3WKS - LABS/CXR PRIOR - BCR/ABL NEEDS TO BE BACK WATER ON LUNGS SOB Shortness of breath F/U AFTER [facility] - NO LABS THERAPUETIC DRUG MONITORING SOB Shortness of breath CHEMO ED 1WK LABS TOX CHECK 3 MO - LABS PRIOR - BCR/ABL NEEDS TO BE BACK PERSONNEL OFFICER MEDS Reason for Visit Chronic myeloid leuk emia Chronic myeloid leukemia Nicotine dependence, cigarettes, uncomplicated 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 SOB (shortness of breath) Chronic myeloid leukemia Encounter for education Chronic myeloid leukemia Chronic myeloid leukemia Encounter for education Near syncope Chronic myeloid leukemia Chief Complaint LLQ pain, cough sob S/P [facility] ER 3WKS - LABS/CXR PRIOR - BCR/ABL NEEDS TO BE BACK WATER ON LUNGS SOB Shortness of breath F/U AFTER [facility] - NO LABS THERAPUETIC DRUG MONITORING SOB Shortness of breath CHEMO ED 1WK LABS TOX CHECK 3 MO - LABS PRIOR - BCR/ABL NEEDS TO BE BACK PERSONNEL OFFICER MEDS 6 week follow up Reason for Visit Chronic myeloid leuk emia Chronic myeloid leukemia Nicotine dependence, cigarettes, uncomplicated 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 SOB (shortness of breath) Chronic myeloid leukemia Encounter for education Chronic myeloid leukemia Chronic myeloid leukemia Encounter for education Near syncope Chronic myeloid leukemia Mixed obstructive and restrictive ventilatory defect Nicotine dependence, cigarettes, uncomplicated 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 Chief Complaint LLQ pain, cough sob S/P [facility] ER 3WKS - LABS/CXR PRIOR - BCR/ABL NEEDS TO BE BACK WATER ON LUNGS SOB Shortness of breath F/U AFTER [facility] - NO LABS THERAPUETIC DRUG MONITORING EKG SOB Shortness of breath CHEMO ED 1WK LABS TOX CHECK [facility] MEDS ROUTINE 6 week follow up 1WK LABS TOX CHECK 3 MO - LABS PRIOR - BCR/ABL NEEDS TO BE BACK Reason for Visit Chronic myeloid leuk emia Chronic myeloid leukemia Nicotine dependence, cigarettes, uncomplicated 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 SOB (shortness of breath) Chronic myeloid leukemia Encounter for education Chronic myeloid leukemia Chronic myeloid leukemia Mixed obstructive and restrictive ventilatory defect Nicotine dependence, cigarettes, uncomplicated 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 Chronic myeloid leukemia Encounter for education Near syncope Chronic myeloid leukemia Chief Complaint LLQ pain, cough sob S/P [facility] ER 3WKS - LABS/CXR PRIOR - BCR/ABL NEEDS TO BE BACK WATER ON LUNGS SOB Shortness of breath F/U AFTER [facility] - NO LABS THERAPUETIC DRUG MONITORING EKG SOB Shortness of breath CHEMO ED 1WK LABS TOX CHECK [facility] MEDS ROUTINE 6 week follow up 1WK LABS TOX CHECK Encounter for therapeutic drug level monitoring THERAPUTIC DRUG LEVEL 1WK LABS TOX CHECK REVIEW EKG Amb Documentation 1WK LABS TOX CHECK 3 MO - LABS PRIOR - BCR/ABL NEEDS TO BE BACK Reason for Visit Chronic myeloid leuk emia Chronic myeloid leukemia Nicotine dependence, cigarettes, uncomplicated 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 SOB (shortness of breath) Chronic myeloid leukemia Encounter for education Chronic myeloid leukemia Chronic myeloid leukemia Mixed obstructive and restrictive ventilatory defect Nicotine dependence, cigarettes, uncomplicated 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 Chronic myeloid leukemia Chronic myeloid leukemia 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, right Chronic myeloid leukemia Encounter for education Near syncope Chronic myeloid leukemia Chief Complaint 3WKS - LABS/CXR PRIO R - BCR/ABL NEEDS TO BE BACK WATER ON LUNGS SOB Shortness of breath F/U AFTER [facility] - NO LABS THERAPUETIC DRUG MONITORING EKG SOB Shortness of breath CHEMO ED 1WK LABS TOX CHECK [facility] MEDS ROUTINE 6 week follow up 1WK LABS TOX CHECK Encounter for therapeutic drug level monitoring THERAPUTIC DRUG LEVEL 1WK LABS TOX CHECK REVIEW EKG Amb Documentation 1WK LABS TOX CHECK 2 WKS - LABS PERSONNEL OFFICER MEDICATION USE PERSONNEL OFFICER MEDICATION USE 2 WKS - LABS 3 MO - LABS PRIOR - BCR/ABL NEEDS TO BE BACK 6 m fu Reason for Visit Bilateral pleural ef fusion Chronic myeloid leukemia Nicotine dependence, cigarettes, uncomplicated 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 SOB (shortness of breath) Bilateral pleural effusion Chronic myeloid leukemia Encounter for education Chronic myeloid leukemia Bilateral pleural effusion Chronic myeloid leukemia Mixed obstructive and restrictive ventilatory defect Nicotine dependence, cigarettes, uncomplicated 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 Bilateral pleural effusion Chronic myeloid leukemia Bilateral pleural effusion Chronic myeloid leukemia 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, right Bilateral pleural effusion Chronic myeloid leukemia Chronic myeloid leukemia 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, right Chronic myeloid leukemia 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, right Encounter for education Near syncope Chronic myeloid leukemia Chronic myeloid leukemia Essential (primary) hypertension History of coronary artery stent placement Chief Complaint 3WKS - LABS/CXR PRIO R - BCR/ABL NEEDS TO BE BACK WATER ON LUNGS SOB Shortness of breath F/U AFTER [facility] - NO LABS THERAPUETIC DRUG MONITORING EKG SOB Shortness of breath CHEMO ED 1WK LABS TOX CHECK PERSONNEL OFFICER MEDS ROUTINE 6 week follow up 1WK LABS TOX CHECK Encounter for therapeutic drug level monitoring THERAPUTIC DRUG LEVEL 1WK LABS TOX CHECK REVIEW EKG Amb Documentation 1WK LABS TOX CHECK 2 WKS - LABS PERSONNEL OFFICER MEDICATION USE [facility] MEDICATION USE 2 WKS - LABS 6 m fu cad cad 4 WKS - LABS - REVIEW CXR 3 MO - LABS PRIOR - BCR/ABL NEEDS TO BE BACK 3 M FU Reason for Visit Bilateral pleural ef fusion Chronic myeloid leukemia Nicotine dependence, cigarettes, uncomplicated 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 SOB (shortness of breath) Bilateral pleural effusion Chronic myeloid leukemia Encounter for education Chronic myeloid leukemia Bilateral pleural effusion Chronic myeloid leukemia Mixed obstructive and restrictive ventilatory defect Nicotine dependence, cigarettes, uncomplicated 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 Bilateral pleural effusion Chronic myeloid leukemia Bilateral pleural effusion Chronic myeloid leukemia 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, right Bilateral pleural effusion Chronic myeloid leukemia Chronic myeloid leukemia 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, right Chronic myeloid leukemia 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, right Chronic myeloid leukemia Essential (primary) hypertension History of coronary artery stent placement Chronic myeloid leukemia 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, right Encounter for education Near syncope Chronic myeloid leukemia Mixed obstructive and restrictive ventilatory defect Nicotine dependence, cigarettes, uncomplicated Bilateral pleural effusion Chief Complaint 3 MO - LABS PRIOR - BCR/ABL NEEDS TO BE BACK 6 M FU 3 MO - LABS PRIOR - BCR/ABL NEEDS TO BE BACK NICOTINE DEP Reason for Visit Encounter for educat ion Near syncope Chronic myeloid leukemia Chronic myeloid leukemia Essential (primary) hypertension History of coronary artery stent placement Chronic myeloid leukemia Chief Complaint 3MO LABS PRIOR BCR/A BL NEEDS TO BE BACK ELEVATED LIVER ENZYMES 3 MO - LABS PRIOR - BCR/ABL NEEDS TO BE BACK Reason for Visit Chronic myeloid leuk emia Encounter for education Near syncope Chronic myeloid leukemia Chief Complaint Admit Date 3 MO - LABS PRIOR - BCR/ABL NEEDS TO BE BACK October 22, 2024 11:00am 3 MO - LABS PRIOR - BCR/ABL NEEDS TO BE BACK November 05, 2024 11:20am 6 m fu January 05, 2025 10:4 2am Reason for Visit Admit Date Encounter for education October 22, 2024 11:00am Near syncope October 22, 2024 11:0 0am Chronic myeloid leukemia October 22, 2024 11:00am Chronic myeloid leukemia November 05 11:20am Mixed obstructive and restrictive ventil atory defect January 05, 2025 10:42am Nicotine dependence, cigarettes, uncompl icated January 05, 2025 10:42am Chief Complaint Admit Date 3 MO - LABS PRIOR - BCR/ABL NEEDS TO BE BACK November 05, 2024 11:20am 6 m fu January 05, 2025 10:4 2am 3 MO - LABS PRIOR - BCR/ABL NEEDS TO BE BACK January 21, 2025 11:00am 3 MO - LABS PRIOR - BCR/ABL NEEDS TO BE BACK February 04, 2025 11:18am Reason for Visit Admit Date Chronic myeloid leukemia November 05 11:20am Mixed obstructive and restrictive ventil atory defect January 05, 2025 10:42am Nicotine dependence, cigarettes, uncompl icated January 05, 2025 10:42am Encounter for education January 21, 2025 1 1:00am Near syncope January 21, 2025 11:00 am Chronic myeloid leukemia January 21, 2025 11:00am Chronic myeloid leukemia February 04, 2025 11:18am Chief Complaint Admit Date 6 m fu January 05, 2025 10:4 2am 3 MO - LABS PRIOR - BCR/ABL NEEDS TO BE BACK January 21, 2025 11:00am 3 MO - LABS PRIOR - BCR/ABL NEEDS TO BE BACK February 04, 2025 11:18am 1 Y FU April 16, 2025 8:41am Reason for Visit Admit Date Mixed obstructive and restrictive ventil atory defect January 05, 2025 10:42am Nicotine dependence, cigarettes, uncompl icated January 05, 2025 10:42am Encounter for education January 21, 2025 1 1:00am Near syncope January 21, 2025 11:00 am Chronic myeloid leukemia January 21, 2025 11:00am Chronic myeloid leukemia February 04, 2025 11:18am Chronic myeloid leukemia April 16, 2025 8:41am Essential (primary) hypertension Septemb er 2024 8:41am History of coronary artery stent placeme nt April 16, 2025 8:41am Reason for Referral Specialty Diagnoses / Procedures Referred By Emy [email or web address] Referred To Contact Diagnoses Lumbar radiculopathy Procedures MRI SPINE LUMBAR WITH AND WITHOUT CONTRAST SC MRI, LUMBAR SPINE COMBO Katelyn Lawton MD [address] [facility] [address] [place] [address] Referral ID Status Reason Start Date Expiration Date V isits Requested Visits Authorized [id number] New Request 07/30/2023 08/23/2024 1 1 Additional Source Comments (unrecognized sect ion and content) No Status Records FoundNo Status Records FoundNo Status Records FoundNo Status Records FoundNo Status Records FoundNo Status Records FoundNo Status Records Found INFORMATION SOURCE (unrecogn ized section and content) DATE CREATED AUTHOR 08/05/2018 [facility] DATE CREATED AUTHOR AUTHOR'S ORGANIZ ATION 12/22/2019 [facility] DATE CREATED AUTHOR AUTHOR'S ORGANIZ ATION 08/14/2021 [facility] DATE CREATED AUTHOR AUTHOR'S ORGANIZ ATION 06/09/2022 [facility] DATE CREATED AUTHOR AUTHOR'S ORGANIZ ATION 09/28/2022 [facility] DATE CREATED AUTHOR AUTHOR'S ORGANIZ ATION 10/10/2024 [facility] DATE CREATED AUTHOR AUTHOR'S ORGANIZ ATION 05/08/2025 [facility] Goals (unrecognized section and content) Goals may be documented in a n alternate sectionGoals may be documented in an alternate sectionGoals may be documented in an alternate sectionGoals may be documented in an alternate sectionGoals may be documented in an alternate sectionGoals may be documented in an alternate sectionGoals may be documented in an alternate sectionGoals may be documented in an alternate sectionGoals may be documented in an alternate sectionGoals may be documented in an alternate sectionGoals may be documented in an alternate sectionGoals may be documented in an alternate sectionGoals may be documented in an alternate sectionGoals may be documented in an alternate section Care Teams (unrecognized sec tion and content) Team Status: Active Member Role Status Dates Dr. Jocelin Saunders , DO Family Provider Active Dr. Jocelin Saunders , DO Primary Care Provider Active Team Status: Inactive Member Role Status Dates Dr. Jocelin Saunders , DO Primary Care Provider, Referr ing Provider Active Dr. Sawyer Delgado MD Attending Provider Active Team Status: Inactive Member Role Status Dates Dr. Jocelin Saunders , DO Primary Care Provider, Referr ing Provider Active Dr. John Brooks , DO Attending Provider Active Team Status: Active Member Role Status Dates Dr. Jocelin Saunders , DO Primary Care Provider Active Dr. John Brooks , DO Referring Provider, Other Provide r Active Dr. Gallito Malcolm MD Attending Provider Active Team Status: Inactive Member Role Status Dates Dr. Jocelin Saunders , DO Primary Care Provider, Referr ing Provider Active Savi Rodriguez FERMENTER HELPER, FERMENTER HELPER-C Attending Provider Active Team Status: Active Member Role Status Dates Dr. Jocelin Saunders , DO Primary Care Provider Active Dr. John Brooks , DO Other Provider Active Dr. Gallito Malcolm MD Attending Provider Active Team Status: Active Member Role Status Dates Dr. Jocelin Saunders , DO Primary Care Provider, Referr ing Provider Active Dr. Sawyer Delgado MD Attending Provider Active Team Status: Inactive Member Role Status Dates Dr. Jocelin Saunders , DO Primary Care Provider Active Dr. Hermes Kent MD Attending Provider, Emergency Provider Active Team Status: Inactive Member Role Status Dates Dr. Jocelin Saunders , DO Primary Care Provider Active Dr. Sawyer Delgado MD Attending Provider Active Team Status: Inactive Member Role Status Dates Dr. Jocelin Saunders , DO Primary Care Provider Active Dr. John Brooks , DO Attending Provider Active Team Status: Active Member Role Status Dates Dr. Jocelin Saunders , DO Primary Care Provider Active Dr. John Brooks , DO Attending Provider Active Team Status: Active Member Role Status Dates Dr. Jocelin Saunders , DO Primary Care Provider Active Dr. Sawyer Delgado MD Attending Provider, Referrin g Provider Active Team Status: Inactive Member Role Status Dates Dr. Jocelin Saunders DO Primary Care Provider Active Dr. Sawyer Delgado MD Attending Provider, Referrin g Provider Active Team Status: Active Member Role Status Dates Dr. Jocelin Saunders DO Primary Care Provider Active Dr. Hector Hsu MD Attending Provider Active Dr. Sawyer Delgado MD Referring Provider Active Team Status: Active Member Role Status Dates Dr. Jocelin Saunders DO Primary Care Provider Active Dr. Luke Campbell MD Attending Provider Activ e Dr. Sawyer Delgado MD Referring Provider Active Team Status: Active Member Role Status Dates Dr. Jocelin Saunders DO Primary Care Provider Active Rula Vazquez Attending Provider Active Team Status: Inactive Member Role Status Dates Dr. Jocelin Saunders DO Primary Care Provider Active Dr. Hector Hsu MD Attending Provider Active Team Status: Inactive Member Role Status Dates Dr. Jocelin Saunders DO Primary Care Provider Active Dr. Hector Hsu MD Attending Provider, Referring Pro vider Active Team Status: Inactive Member Role Status Dates Dr. Jocelin Saunders , DO Primary Care Provider, Referr ing Provider Active Karin De La Rosa FERMENTER HELPER, FERMENTER HELPER-C Attending Provider Active Team Status: Active Member Role Status Dates Dr. Joceiln Saunders DO Primary Care Provider Active Dr. Hector Hsu MD Attending Provider, Other Provide r Active Team Status: Inactive Member Role Status Dates Dr. Jocelin Puja , DO Primary Care Provider, Referr ing Provider Active Dr. Hector Hsu MD Attending Provider Active Team Status: Active Member Role Status Dates Dr. Jocelin Saunders , DO Primary Care Provider, Referr ing Provider Active Dr. Sawyer Delgado MD Attending Provider Active Savi Rodriguez FERMENTER HELPER, FERMENTER HELPER-C Other Provider Active Team Status: Inactive Member Role Status Dates Dr. Jocelin Saunders DO Primary Care Provider Active Karin De La Rosa FERMENTER HELPER, FERMENTER HELPER-C Attending Provider, Referrin g Provider Active Service Employee Relationship Specialty Start Date End Date Jocelin Saunders DO [address] [place] [address] PCP - General Internal Medicine 07/10/22 Katelyn [place] MD [address] [place] [address] Lay Out Maker Hematology 07/04/22 Sawyer Delgado [facility] [address] [facility] [place], [place] [id number] [phone] Oncologist Hematology 07/05/22 Lamar De Oliveira, RN Registered Nurse 07/05/22 Service Employee Relationship Specialty Start Date End Date Jocelin Saunders DO [address] [place] [address] PCP - General Internal Medicine 07/10/22 Katelyn [place] MD [address] [place] [phone] Lay Out Maker Hematology 07/04/22 Sawyer Delgado [facility] [address] [place], [place] [phone] Oncologist Hematology 07/05/22 Lamar De Oliveira, RN Registered Nurse 07/05/22 Team Status: Inactive Member Role Status Dates Dr. Jocelin Saunders DO Primary Care Pr ovider, Attending Provider, Referring Provider Active Service Employee Relationship Specialty Start Date End Date Jocelin Saunders DO [address] [place] [phone] PCP - General Internal Medicine 07/10/22 Katelyn [place] MD [address] [place] [address] Lay Out Maker Hematology 07/04/22 Sawyer Delgado [facility] [address] [place], [place] [id number] [phone] Oncologist Hematology 07/05/22 Lamar De Oliveira, RUBÉN Registered Nurse 07/05/22 Service Employee Relationship Specialty Start Date End Date Jocelin Saunders DO [address] [place] [phone] PCP - General Internal Medicine 07/10/22 Katelyn [place] MD [address] [place] [address] Lay Out Maker Hematology 07/04/22 Sawyer Delgado [facility] [address] [facility] [place] [address] Oncologist Hematology 07/05/22 Lamar De Oliveira, RN Registered Nurse 07/05/22 Team Status: Active Member Role Status Dates Dr. Jocelin Saunders DO Primary Care Provider Active Team Status: Active Member Role Status Dates Dr. Jocelin Saunders DO Primary Care Provider Active Start: October 22, 2024 Dr. Jocelin Saunders DO Referring Provider Active Start: October 22, 2024 Dr. Sawyer Delgado MD Attending Provider Active Start: October 22, 2024 Savi Rodriguez NP, FERMENTER HELPER-C Other Provider Active St art: October 22, 2024 Team Status: Inactive Member Role Status Dates Dr. Jocelin Saunders DO Primary Care Provider Active Start: November 05, 2024 End: November 05, 2024 Dr. Jocelin Saunders DO Referring Provider Active Start: November 05, 2024 End: November 05, 2024 Dr. Sawyer Delgado MD Attending Provider Active Start: November 05, 2024 End: November 05, 2024 Team Status: Inactive Member Role Status Dates Dr. Jocelin Saunders DO Primary Care Provider Active Start: January 05, 2025 End: January 05, 2025 Dr. Jocelin Saunders DO Referring Provider Active Start: January 05, 2025 End: January 05, 2025 SHAILESH ZuritaC Attending Provider Active Start: January 05, 2025 End: January 05, 2025 Team Status: Active Member Role/Relationship Status Dates Dr. Jocelin Saunders DO Primary Care Provider Active Team Status: Inactive Member Role/Relationship Status Dates Dr. Jocelin Saunders DO Primary Care Provider Active Start: November 05, 2024 End: November 05, 2024 Dr. Jocelin Saunders DO Referring Provider Active Start: November 05, 2024 End: November 05, 2024 Dr. Sawyer Delgado MD Attending Provider Active Start: November 05, 2024 End: November 05, 2024 Team Status: Inactive Member Role/Relationship Status Dates Dr. Jocelin Saunders DO Primary Care Provider Active Start: January 05, 2025 End: January 05, 2025 Dr. Jocelin Saunders DO Referring Provider Active Start: January 05, 2025 End: January 05, 2025 SHAILESH ZuritaC Attending Provider Active Start: January 05, 2025 End: January 05, 2025 Team Status: Active Member Role/Relationship Status Dates Dr. Jocelin Saunders DO Primary Care Provider Active Start: January 21, 2025 Dr. Jocelin Saunders DO Referring Provider Active Start: January 21, 2025 Dr. Sawyer Delgado MD Attending Provider Active Start: January 21, 2025 Savi Rodriguez FERMENTER HELPER, FERMENTER HELPER-C Other Provider Active St art: January 21, 2025 Team Status: Inactive Member Role/Relationship Status Dates Dr. Jocelin Saunders DO Primary Care Provider Active Start: February 04, 2025 End: February 04, 2025 Dr. Jocelin Saunders DO Referring Provider Active Start: February 04, 2025 End: February 04, 2025 Savi Rodriguez FERMENTER HELPER, FERMENTER HELPER-C Attending Provider Active Start: February 04, 2025 End: February 04, 2025 Team Status: Active Member Role/Relationship Status Dates Dr. Jocelin Saunders DO Primary care physician Active Team Status: Inactive Member Role/Relationship Status Dates Dr. Jocelin Saunders DO Primary care physician Active Start: January 05, 2025 End: January 05, 2025 Dr. Jocelin Saunders DO Referring Provider Active Start: January 05, 2025 End: January 05, 2025 Loulou Gunter NP-C Attending physician Active Start: January 05, 2025 End: January 05, 2025 Team Status: Active Member Role/Relationship Status Dates Dr. Jocelin Saunders DO Primary care physician Active Start: January 21, 2025 Dr. Jocelin Saunders DO Referring Provider Active Start: January 21, 2025 Dr. Sawyer Delgado MD Attending physician Active Start: January 21, 2025 Savi Rodriguez FERMENTER HELPER, FERMENTER HELPER-C Nurse Practitioner Active Start: January 21, 2025 Team Status: Inactive Member Role/Relationship Status Dates Dr. Jocelin Saunders DO Primary care physician Active Start: February 04, 2025 End: February 04, 2025 Dr. Jocelin Saunders DO Referring Provider Active Start: February 04, 2025 End: February 04, 2025 Savi Rodriguez FERMENTER HELPER, FERMENTER HELPER-C Attending physician Active Start: February 04, 2025 End: February 04, 2025 Team Status: Inactive Member Role/Relationship Status Dates Dr. Jocelin Saunders DO Primary care physician Active Start: April 16, 2025 End: April 16, 2025 Dr. Jocelin Saunders DO Referring Provider Active Start: April 16, 2025 End: April 16, 2025 Dr. Hector Hsu MD Attending physician Active Start: April 16, 2025 End: April 16, 2025 Reason for Visit (unrecogniz ed section and content) Reason Comments Follow-up Reason Comments Follow-up Reason Onset Date Comments Medication Management 10/07/2024 FOR RECORDS PERTAINING TO PATIENTS WHO ARE OR HAVE BEEN ENROLLED IN A CHEMICAL DEPENDENCY/SUBSTANCEABUSE PROGRAM, SOME INFORMATION MAY BE OMITTED. This clinical summary was aggregated from multiple sources. Caution should be exercised in using it in the provision of clinical care. This summary normalizes information from multiple sources, and as a consequence, information in this document may materially change the coding, format and clinical context of patient data. In addition, data may be omitted in some cases. CLINICAL DECISIONS SHOULD BE BASED ON THE PRIMARY CLINICAL RECORDS. [employer] provides no warranty or guarantee of the accuracy or completeness of information in this document.
--- NOTE | 2025-05-11 10:15 | STRESSREP ---
Stress Test Report Exercise myocardial perfusion stress test. 64-year-old man with a history of coronary artery. Stress protocol: Resting EKG demonstrates normal sinus rhythm with a rate of 56 bpm resting blood pressure is 124/78 mmHg. The patient exercised according to the regular Gall[place] protocol for a total duration of 7-1/2 minutes attaining a maximum heart rate of 120 bpm which was 80% of maximum predicted heart rate; the maximum workload was 10.1 metabolic equivalents. At rest there were no ST or T wave changes noted to suggest ischemia and at peak exercise upsloping ST changes only were noted which did not meet the criteria for ischemia. No clinical angina was noted the test was terminated due to the target heart rate being achieved/fatigue. The peak blood pressure was 174/70 mmHg. Rate-pressure product was 21 900. Myocardial perfusion protocol. 15.3 mCi of technetium 99m sestamibi was injected at rest. The patient exercised according to regular Gallito protocol for total duration of 7-1/2 minutes and at peak exercise 45 mCi of technetium 99m sestamibi was injected stress images were obtained stress and rest images were reconstructed in comparing the short axis vertical long and horizontal long axis. Gated images were also obtained. Perfusion SPECT analysis: Review of the stress images demonstrate normal uptake of tracer noted in all areas of the myocardium. The resting images similarly demonstrate normal uptake of tracer noted in all areas of the myocardium. No areas of reversibility are noted to suggest ischemia no previous infarct was noted. Gated SPECT analysis: The gated ejection fraction is 67%. Conclusion: Normal exercise myocardial perfusion stress test at a high workload.
== END | disposition home or self-care (01) ==
LOC: CVS 06:32
PROVIDERS: PCP Internal Medicine; Referring Provider Internal Medicine Cardiovascular Disease; Visit Provider Internal Medicine Cardiovascular Disease
DX: I25.10 Atherosclerotic heart disease of native coronary artery without angina pectoris (principal)
CPT/HCPCS: 78452; 93017; A9500; A4216

== ENCOUNTER → 2025-05-20 | Outpatient (CLI) | payer MEDICARE, SELFPAY ==
--- NOTE | 2025-05-20 12:08 | EKG12_ITS ---
Test Reason : PREOP
[2025-05-20 12:35] LABS: Hematocrit 44.6 % (40-54); Hemoglobin 14.9 g/dL (13.0-16.5); Mean Corp Hgb Conc 33.4 g/dL (32-36); Mean Corpuscular Volume 87.5 fL (80-94); Mean Platelet Vol. 10.6 fl (6.2-12.0); Platelet Count 231 K/mm3 (150-450); RBC Distribution Width CV 13.2 % (11.6-14.6); RBC Distribution Width SD 42.4 fl (35.1-43.9); Red Blood Count 5.10 M/mm3 (4.6-6.2); White Blood Count 6.7 K/mm3 (4.4-11.0)
[2025-05-20 13:12] LABS: Anion Gap 10 (5-15); BUN 11 mg/dL (4-19); BUN/Creat Ratio 13.6 RATIO (10-20); Calcium,Total 9.1 mg/dL (7.6-11.0); Carbon Dioxide 28.0 mmol/L (21.0-32.0); Chloride 102 mmol/L (98-108); Glucose 156 mg/dL (70-99); Potassium 4.1 mmol/L (3.3-5.1)
== END | disposition home or self-care (01) ==
LOC: PSN 11:46
PROVIDERS: PCP Internal Medicine; Referring Provider Otolaryngology; Visit Provider Otolaryngology
DX: Z01.818 Encounter for other preprocedural examination (principal)
CPT/HCPCS: 36415; 80048; 85027; 93005

== ENCOUNTER → 2025-05-26 | Outpatient (CLI) | payer MEDICARE, SELFPAY ==
--- NOTE | 2025-05-26 13:02 | CT_ITS ---
PROCEDURE: LOW DOSE CT LUNG SCREENING 05/26/2025 REASON FOR EXAM: SMOKER Patient has smoked 1 pack per day for 40 years. COPD. TECHNIQUE: Procedure Code: CTLUNGSCREEN Modality: CT Procedure: LOW DOSE CT LUNG SCREENING Coronal and Sagittal reconstruction series were provided. One or more dose reduction techniques were used (e.g., Automated exposure control, adjustment of the mA and/or kV according to patient size, use of iterative reconstruction technique). REFERENCE LINK: [employer] Lung-RADS RADIATION DOSE SUMMARY: CTDlvol: 4.02 mGy DLP: 148.48 mGycm COMPARISON: May 25, 2024. FINDINGS: PULMONARY NODULES: (Only nodules >3mm are reported) Nodules described below are on series 1 unless otherwise specified. Pulmonary Nodules: No suspicious pulmonary nodule is seen. Hardware:None Lymph Nodes:No significant lymph nodes are present. Heart and Vasculature:Mild cardiomegaly.Small pericardial effusion. Atherosclerotic plaque formation of the aortic arch. Coronary Artery Calcifications: Present Lungs and Airways: Moderate-sized right pleural effusion. This has increased in size as compared to prior study. Increased markings in the right middle lobe with thickening of the right minor fissure. Pleura:Increasing right pleural effusion. Upper Abdomen:Unremarkable Bones:Degenerative changes of the thoracic spine. CT/Low Dose CT Lung Screening IMPRESSION: No suspicious pulmonary nodule present. Pericardial effusion. Increasing righ t pleural effusion. Coronary artery calcification (CAC) is is present Lung-RADS Category: 2 BENIGN (BASED ON IMAGING FEATURES OR INDOLENT BEHAVIOR). RECOMMEND 12-MONTH SCREENING LDCT. Other Significant Findings: Reading Location: [facility]
== END | disposition home or self-care (01) ==
LOC: CT 12:58
PROVIDERS: PCP Internal Medicine; Referring Provider Nurse Practitioner Acute Care; Visit Provider Nurse Practitioner Acute Care
DX: F17.210 Nicotine dependence, cigarettes, uncomplicated (principal)
CPT/HCPCS: 71271

== ENCOUNTER → 2025-06-15 | Outpatient (CLI) | payer MEDICARE, SELFPAY ==
--- NOTE | 2025-06-14 11:10 | MASS_PTH ---
PATIENT: EDNA THOMAS LOC: [facility] U#:[id number] AGE/SX: 64/M ROOM: RE06/15/[address]: Dr. Jhonatan Dunn MD : 1960 BED: DIS: 06/15/2025 SPEC #: [id number] RECD: 06/15/25 15:02 STATUS: ANTONIO AYESHA #: [id number] ISAAC: 06/14/25 11:[address]: Jhonatan Dunn DEPT: SURGICAL PATHOLOGY RECD BY: Vinod Busch Tissues: A - Oropharynx, NOS Procedures: Surgery Specimen Level III HEADER OPERATION: Excision oropharyngeal mass PRE-OP DIAGNOSIS: Benign neoplasm of pharynx, unspecified TISSUE SUBMITTED: A- Oropharyngeal mass MICROSCOPIC DIAGNOSIS A. 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 - PASD stain is negative for fungal organisms . MICROSCOPIC DESCRIPTION Slides are reviewed. All matched controls reacted appropriately. These tests were developed and their performance characteristics determined by [facility]. They may not have been cleared or approved by the [place]. Food and Drug Administration. The FDA has determined that such clearance or approval is not necessary. The above immunohistochemical markers and/or special?stains have been reviewed by the Pathologist. GROSS DESCRIPTION A. Received in formalin labeled with the patient's name and date of . Designated as oropharyngeal mass is a 0.7 x 0.4 x 0.1 cm aggregate of garcia-white somewhat fibrotic tissue fragments. Entirely submitted in 1 cassette. MT 06/16/2025 CPT:06874,34864
== END | disposition home or self-care (01) ==
LOC: LABSPEC 15:25
PROVIDERS: PCP Nurse Practitioner Family; Referring Provider Otolaryngology; Visit Provider Otolaryngology
DX: D10.5 Benign neoplasm of other parts of oropharynx (principal); J02.9 Acute pharyngitis, unspecified
CPT/HCPCS: 88304

== ENCOUNTER 2025-06-18 08:12 | Observation (INO) | payer MEDICARE, SELFPAY ==
--- NOTE | 2025-06-09 16:22 | PAT.ANESEVAL ---
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 When Was Last Pacemaker Check QUESTION #4 FULL TEXT: You/Your Family Experience fever (hyperthermia) with Anesthesia Last Oral Intake Last Oral intake: Last Oral Intake NPO since Meds taken in AM with sips of water? 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 Female No 06/09/25 14:34 HX of Motion Sickness No 06/09/25 14:34 HX of N/V After Surgery No 06/09/25 14:34 Non-Smoker No 06/09/25 14:34 Duration of Surgery greater Yes 06/09/25 14:34 than 60 minutes Number of Risk Factors 1 06/09/25 14:34 PONV Score Low Risk 06/09/25 14:34 Height & Weight Height & Weight: Anesthesia: Height & Weight Height 6 ft 05/06/25 10:59 Respiratory Assessment Respiratory Assessment - sheet metal work furnace installer: Respiratory Tract Infection Hx - 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 Has anyone observed you stop No 06/09/25 14:34 breathing during sleep? STOP Results Negative 06/09/25 14:34 QUESTION #5 FULL TEXT : Do you snore loudly (louder than talking or can be heard through closed doors)? 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 Specify any problems Hx of Preganancy in last 3 N/A 06/09/25 14:34 Months Nurse Filling Out Transfusion NBUCHER 06/09/25 14:34 & Questions: Date: 06/09/25 06/09/25 14:34 Time: 14:37 06/09/25 14:34 Patient unable to answer at this time (ie. 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 installer: /Reproductive Hx- sheet metal work furnace installer Hx Now No 06/09/25 14:34 Gestational Age (in weeks): EDC: Hx Hx Para Hx Section SAB No 06/09/25 14:34 Does the father of the baby or his family experience fever w Father of the baby Malignant Hypertension history comment [facility] Medical History (Updated 06/09/25 @ 14:43 by Sofy Oliva) Wears glasses Wears dentures Cancer Prostate disease BPH (benign prostatic hyperplasia) High cholesterol History of hiatal hernia Smoker Shortness of breath on exertion COPD (chronic obstructive pulmonary disease) History of Holter monitoring History of echocardiogram History of stress test Cardiology follow-up encounter Hypertension Low back pain 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, right Tobacco use disorder, continuous Encounter for screening for malignant neoplasm of lung in current smoker with 30 pack year history or greater Pneumonia Chronic myeloid leukemia Fatigue Near syncope Fracture of great toe, right, open Unspecified injury of right foot, sequela Leukocytosis 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) History of ST elevation myocardial infarction (STEMI) (01/20/17) Hyperlipidemia Essential (primary) hypertension Nicotine dependence Atherosclerosis of coronary artery of [place] heart without angina pectoris Obesity (BMI 30.0-34.9) Hiatal hernia with GERD History of back problems Home Medications ?Medication ?Instructions ?Recorded ?Last Taken ?Type aspirin 81 mg tablet,delayed 81 mg PO DAILY HEART HEALTH 09/02/18 04/12/20 History release carvedilol 6.25 mg tablet 6.25 mg PO BID HTN 09/02/18 04/12/20 History cholecalciferol (vitamin D3) 25 1,000 unit PO DAILY SUPPLEMENT 09/02/18 04/12/20 History mcg (1,000 unit) capsule atorvastatin 80 mg tablet 80 mg PO QHS HLD 12/15/19 04/12/20 History vitamin E 200 unit capsule 200 unit PO DAILY SUPPLEMENT 08/25/20 Unknown History ascorbic acid (vitamin C) 500 mg 500 mg PO Q12H SUPPLEMENT 09/06/22 Unknown History capsule,extended release bosutinib 100 mg tablet 400 mg PO DAILY LEUKEMIA 11/06/23 Unknown History fluticasone fur. 100 mcg-umeclid 1 inh inhalation Q24H COPD #60 ea 07/24/24 Unknown Rx 62.5 mcg-vilant 25 mcg inhalat.powder (Trelegy Ellipta) albuterol sulfate 90 mcg/actuation 2 puff inhalation Q4H PRN 01/05/25 Unknown Rx aerosol inhaler shortness of breath or wheezing #8.5 grams dutasteride 0.5 mg capsule 0.5 mg PO QDAY BPH 05/06/25 Unknown History tamsulosin 0.4 mg capsule 0.4 mg PO QHS BPH 05/06/25 Unknown History ramipril 2.5 mg capsule 2.5 mg PO DAILY HTN #30 caps 06/02/25 Unknown Rx Allergy/AdvReac Type Severity Reaction Status Date / Time No Known Allergies Allergy Verified 06/09/25 14:28 Family History Father Colon cancer Diabetes Heart disease Hypertension CAD (coronary artery disease) Sister Breast cancer Mother CAD (coronary artery disease) Hypertension Heart disease Surgical History (Updated 06/09/25 @ 14:43 by Sofy Oliva) History of cardiac catheterization Status post laser lithotripsy of ureteral calculus History of bone marrow biopsy (04/13/20) History of bilateral inguinal hernia repair (08/2018) Status post laparoscopic Donovan fundoplication (10/15/18) History of coronary artery stent placement (01/20/17) Social History household members: spouse Smoking Status: Current every day smoker tobacco type: cigarettes Tobacco: How many years used: 40 Electronic Cigarette Use: not used second hand exposure: No quit status: considering quitting alcohol intake: current alcohol intake frequency: a few times a week Alcohol type: beer substance use type: does not use well-balanced diet: about half the time uyen/latter-day: Mandaeism seatbelt use: always do you feel safe at home: Yes Audit: Pertinent Findings Pertinent Findings EKG Perinent findings: 05/20/2025. Normal sinus rhythm. Stress test pertinent findings: 05/11/2025. EF is 67%. No areas of reversibility noted to suggest ischemia. No previous infarct. Echo (EF%) pertinent findings: 05/04/2024. EF is 60%. PASP is 30 mmHg. No aortic valve stenosis noted. Consult pertinent findings: April 16, 2025. Dr. Hsu. 1. History of coronary artery stent placement-PCI/NICA to the mid LAD. NICA to the mid RCA. January 20, 2017. Patient is doing quite well. No changes at this time. Will check a perfusion stress test and make recommendations accordingly. (See above). 2. Hypertension-currently well-controlled. We will get her echocardiogram to assess left ventricle. (See above). 3. Chronic myeloid leukemia-patient is tolerating this well. No dysrhythmias noted. Last EKG demonstrated normal sinus rhythm with a rate of 66 bpm and no acute changes. Additional pertinent findings: Holter monitor. September 06, 2021. Base rhythm was normal sinus rhythm. 13 VE beats including 1 couplet and 1 wide-complex ventricular run of 4 beats. Total of 32 SVE beats including 1 atrial couplet and 1 atrial 1. No atrial fibrillation noted. No symptoms recorded on patient's 24-hour diary. Recommendation Anesthesia Recommendation Anesthesia recommendation: OPTIMIZED for anesthesia
[2025-06-18] VITALS (13 sets, daily range): BP systolic 133–174; BP diastolic 69–91; PULSE 59–83; RESP 15–20; TEMP 36.3–36.8; O2SAT 93–98; BMI 34.0
--- OUTSIDE RECORDS SUMMARY | 2025-06-18 06:05 | XMS RPT_ITS | CCD ---
Author Organization [facility] Care Team Providers Care Recovery Advocate Name Role Phone JANNETH ACOSTA (CORPORATE TRAVEL MANAGER-C) Unavailable Unavai Jocelin Reyes Unavailable Wolfgang Thompson Unavailable Hope Walter Unavailable Unavailable Vinod Redyd Unavailable Unavailable Unavailable Unavailable Felicia Boyd Unavailable [...] Mg Blake Unavailable Wolfgang Thompson MD Unavailable [phone] Isckarus, Mansour Unavailable Sofy Malik Unavailable [phone] Vinod Wyman LPN Unavailable Unavailable Polina Bhat LPN Unavailable Unavailable Gravius INEZ, Eufemia Unavailable Unavailable Messenger Talia MONTANA Unavailable Unavailable Micki ROUGHER HELPER, Terese Unavailable Unavailable Unavailable Unavailable Slarb ROUGHER HELPER, Letty Unavailable Unavailable PujaNatalie blanton DOhleen Unavailable [phone] Jocelin Saunders Primary Care Provider Dr. Jocelin Saunders Referring Provider Dr. Hector Hsu Attending Provider Dr. Sawyer Delgado Attending Provider Jocelin Saunders DO Unavailable Dr. Mg Blake Unavailable Jay HICKS, Wolfgang Quiles Unavailable Sawyer Delgado Unavailable Helena Sofy San Unavailable Garo ROUGHER HELPER, Vinod Unavailable Unavailable Gravius YOKE PRESSER, Eufemia Unavailable Unavailable Russell YOKE PRESSER, Kayela Unavailable Unavailable Cross ROUGHER HELPER, Polina Unavailable Unavailable Patrick RN, Talia Unavailable Unavailable Micki ROUGHER HELPER, Terese Unavailable Unavailable Unavailable Unavailable JADA BERNAL Attending Unava ilable JOCELIN SAUNDERS Primary Care Unavailable Dr. Jocelin Saunders Primary Care Provider Dr. Jocelin Saundesr Referring Provider Dr. Sawyer Delgado Attending Provider Dr. John Brooks Attending Provider Dr. John Brooks Referring Provider Dr. John Brooks Other Provider Dr. Gallito Malcolm Attending Provider Michael PHOTOCOMPOSITION KEYBOARD OPERATOR, PHOTOCOMPOSITION KEYBOARD OPERATOR-C Savi Attending Provider Dr. Hector Hsu Attending [...] Provider Dr. Sawyer Delgado Referring Provider Michael PHOTOCOMPOSITION KEYBOARD OPERATOR, PHOTOCOMPOSITION KEYBOARD OPERATOR-C Savi Attending Provider Dr. Luke Campbell Attending Provider Rula Vazquez Attending Provider Unavailabl e Dr. Hector Hsu Other Provider Estrella PHOTOCOMPOSITION KEYBOARD OPERATOR, PHOTOCOMPOSITION KEYBOARD OPERATOR-C Karin Attending Provider [facility] Unavailable Unavailable Dr. Jocelin Saunders Primary Care Provider Dr. Jocelin Saunders Referring Provider Dr. Hector Hsu Attending Provider Dr. Sawyer Delgado Attending Provider Katelyn Lawton MD Unavailable Danny [facility] Unavailable Lamar De Oliveira RN Unavailable Unavailable Jocelin Saunders DO Primary Care Provider Dr. Jocelin Saunders Primary Care Provider Dr. Jocelin Saunders Referring Provider Dr. Sawyer Delgado Attending Provider JOCELIN SAUNDERS Referring Unavailable JOCELIN SAUNDERS Primary Care Unavailable KATELYN LAWTON Attending Unavailable Dr. Jocelin Saunders DO Primary Care Provider Dr. Jocelin Saunders DO Referring Provider Dr. Sawyer Delgado MD Attending Provider Michael PHOTOCOMPOSITION KEYBOARD OPERATOR-C, Savi Other Provider Rufener PHOTOCOMPOSITION KEYBOARD OPERATOR-C, Loulou Franklin Attending Provider Puja DO, Dr. Monreal Primary Care Provider Puja DO, Dr. Monreal Referring Provider Danny HICKS, Dr. Jacques Attending Provider Michael PHOTOCOMPOSITION KEYBOARD OPERATOR-C, Savi Other Provider Michael PHOTOCOMPOSITION KEYBOARD OPERATOR-C, Savi Attending Provider Puja DO, Dr. Monreal Primary Care Physician Puja DO, Dr. Monreal Referring Provider Rufener PHOTOCOMPOSITION KEYBOARD OPERATOR-C, Loulou Franklin Attending Physician Danny HICKS, Dr. Jacques Attending Physician Michael PHOTOCOMPOSITION KEYBOARD OPERATOR-C, Savi Nurse Practitioner Michael PHOTOCOMPOSITION KEYBOARD OPERATOR-C, Savi Attending Physician Shadi HICKS, Dr. Young Attending Physician Puja DO, Dr. Monreal Primary Care Physician Puja DO, Dr. Monreal Referring Provider Danny HICKS, Dr. Jacques Attending Physician Michael PHOTOCOMPOSITION KEYBOARD OPERATOR-C, Savi Nurse Practitioner Shadi HICKS, Dr. Young Nurse Practitioner Shadi HICKS, Dr. Young Referring Provider Puja, Jocelin Primary Care Unavailable Puja, Jocelin Referring Unavailable Sawyer Delgado Attending Unavailable Puja, Jocelin Referring Unavailable Michael PHOTOCOMPOSITION KEYBOARD OPERATOR, Savi Consulting Unavailable Sawyer Delgado Attending Unavailable Puja, Jocelin Primary Care Unavailable Hector Hsu Consulting Unavailable Puja, Jocelin Referring Unavailable De La Rosa PHOTOCOMPOSITION KEYBOARD OPERATOR, Karin Attending Unavailable Puja, Jocelin Primary Care Unavailable Puja, Jocelin Referring Unavailable Isckarus, Mansour Attending Unavailable Puja, Jocelin Primary Care Unavailable Puja, Jocelin Primary Care Unavailable Rich Taylor Attending Unavailable ClaudiaRich Admitting Unavailable Puja, Jocelin Primary Care Unavailable Shadi, Hector Attending Unavailable Shadi, Hector Referring Unavailable Puja, Jocelin Primary Care Unavailable Estrella PHOTOCOMPOSITION KEYBOARD OPERATOR, Karin Referring Unavailable Estrella PHOTOCOMPOSITION KEYBOARD OPERATOR, Karin Attending Unavailable Puja, Jocelin Primary Care Unavailable Jhonatan Dunn Referring Unavailable Jhonatan Dunn Attending Unavailable Puja, Jocelin Primary Care Unavailable Shadi, Parmele Referring Unavailable Shadi, Parmele Attending Unavailable Shadi, Hector Consulting Unavailable Puja, Jocelin Referring Unavailable Isckarus, Mansour Attending Unavailable Puja, Jocelin Primary Care Unavailable Puja, Jocelin Primary Care Unavailable Puja, Jocelin Referring Unavailable Loulou Gunter Attending Unavailable Puja, Jocelin Primary Care Unavailable Puja, Jocelin Referring Unavailable Michael PHOTOCOMPOSITION KEYBOARD OPERATOR, Savi Attending Unavailable Puja, Jocelin Primary Care Unavailable Puja, Jocelin Referring Unavailable Shadi, Parmele Attending Unavailable Medications Current Medications Medication Drug Class(es) Dates Sig (Normalized) Sig (Original) [id number] 200 actuat albuterol 0.09 mg/actuat metered dose inhaler (20 sources) beta2-Adrenergic Agonist Start: 06-26-2023 Albuterol 108 (90 Base) MCG/ACT Aero Soln inhaler 06/26/2023 Active Start: 06-26-2023 End: 01-05-2025 Start: 06-26-2023 take 1 puff(s) by in [...] acid 500 mg extended release oral capsule (15 sources) Vitamin C Start: 09-06-2022 take 1 capsule by mo [facility] every twelve hours Start: 04-05-2020 take 1000 mg by mouth once christopher ly Ascorbic Acid (Vitamin C) Active 1000 MG PO DAILY April 04, 2020 11:00pm aspirin 81 mg delayed release oral tablet (20 sources) Platelet Aggregation Inhibitor, Nonsteroidal Anti-inflammatory Drug Start: 08-26-2018 End: 08-21-2019 take 1 tablet by mouth once daily aspirin 81 MG Ch ew Tab chewable tablet Chew 1 tablet daily. Active atorvastatin 80 mg oral tablet (20 sources) HMG-CoA Reductase Inhibitor Start: 12-15-2019 take 1 tablet by mouth at bedtime Start: 05-11-2019 take 1 tablet by [facility] once daily Atorvastatin Calcium 80 MG Oral [...] Start: 03-15-2023 take 4 tablets by mo [facility] once daily at mealtime bosutinib 100 MG tablet Indications: CML (chronic myeloid leukemia) Take 4 tablets by mouth daily. Take with food. Swallow tablets whole; do not crush or cut tablets. 120 tablet 11 03/15/2023 Active Start: 08-16-2022 End: 11-06-2023 take 1 tablet by mouth once daily Start: 08-16-2022 take 200 mg by mouth once saman y Bosutinib Active 200 MG PO DAILY August 16, 2022 1:00am carvedilol 6.25 mg oral tablet (20 sources) alpha-Adrenergic Regina, beta-Adrenergic Regina Start: 08-26-2018 take 1 tablet by mouth twice daily cholecalciferol 0.025 mg oral capsule (20 sources) Vitamin D Start: 09-02-2018 take 1 capsule by mouth once daily dutasteride 0.5 mg oral capsule (1 source) 5-alpha Reductase Inhibitor Start: 05-06-2025 take 1 capsule by mouth once daily Btwdagglync-Nnbzjkswq-Wl lanter (20 sources) Anticholinergic, Corticosteroid, beta2-Adrenergic Agonist Start: 07-24-2024 Start: 07-24-2024 Fluticasone-Um eclidin-Vilanter (Trelegy Ellipta) 100-62.5-25 [...] inhaler 07/23/2023 Active Start: 06-26-2023 End: 07-24-2024 Qimraasxkod-Gagvajcoh-Lnfmuz er (Trelegy Ellipta) 100-62.5-25 mcg blister with device Discontinued 1 NMA INHALATION Q24H 60 June 26, 2023 9:29am July 24, 2024 1:16pm Start: 06-26-2023 End: 07-24-2024 Sgszjyzqghx-Mhpokqrfd-Klpapa er (Trelegy Ellipta) 100-62.5-25 mcg blister with device Discontinued 1 NMA INHALATION Q24H 60 June 26, 2023 9:29am July 24, 2024 1:16pm Start: 06-26-2023 Fluticasone-Um eclidin-Vilanter (Trelegy Ellipta) 100-62.5-25 mcg blister with device Active 1 INH INHALATION Q24H 60 June 26, 2023 9:29am Start: 09-18-2022 End: 06-26-2023 Mytuzjsjujd-Yiiwiudbo-Vtzfoq er (Trelegy Ellipta) 100-62.5-25 mcg blister with device Discontinued 1 NMA INHALATION Q24H 60 September 18, 2022 11:18am June 26, 2023 9:30am Start: 09-18-2022 End: 06-26-2023 Ayegfzpzyyz-Zlklszbgu-Fxbfmc er (Trelegy Ellipta) 100-62.5-25 mcg blister with device Discontinued 1 NMA INHALATION Q24H September 18, 2022 11:18am June 26, 2023 9:30am Start: 09-18-2022 End: 06-26-2023 Bbjwxhdlozt-Rcemlklhx-Jeqmcf er (Trelegy Ellipta) 100-62.5-25 mcg blister with [...] 18, 2022 11:18am Start: 09-06-2022 End: 09-18-2022 Hodyklrompv-Trtwpzcld-Bcoezz er (Trelegy Ellipta) 100-62.5-25 mcg Blister With Device Discontinued 1 NMA INHALATION Q24H September 06, 2022 1:00am September 18, 2022 11:18am Start: 09-06-2022 End: 09-18-2022 Marmvgmizyb-Lydfnsjsh-Wdebza er (Trelegy Ellipta) 100-62.5-25 mcg Blister With Device Discontinued 1 INH INHALATION Q24H September 06, 2022 12:00am September 18, 2022 10:18am Start: 09-06-2022 End: 09-18-2022 Uzenvdndiog-Iwjnfzunl-Kgzmpm er (Trelegy Ellipta) 100-62.5-25 mcg Blister With Device Discontinued 1 INH INHALATION Q24H September 06, 2022 1:00am September 18, 2022 11:18am Start: 09-06-2022 Fluticasone-Um eclidin-Vilanter (Trelegy Ellipta) 100-62.5-25 mcg Blister With Device Active 1 INH INHALATION Q24H September 06, 2022 12:00am Start: 08-20-2022 Fluticasone-Um eclidin-Vilanter (Trelegy Ellipta) 100-62.5-25 mcg blister with device Active 1 INH INHALATION DAILY 60 August 20, 2022 12:00am gabapentin 300 mg oral capsule (7 sources) Anti-epileptic Agent Start: 05-06-2025 take 1 capsule by mouth three times daily Start: 08-03-2024 End: 05-06-2025 take 1 capsule by mouth once daily Gabapentin 300 mg capsule Discontinued 300 mg PO daily August 03, 2024 1:00am May 06, 2025 10:58am Start: 07-28-2024 End: 11-02-2024 take 1 capsule by mouth three times daily Gabapentin 300 MG capsule Take 1 capsule by mouth 3 times daily. 90 capsule 2 08/04/2024 11/02/2024 Active ibuprofen 600 mg oral tablet (4 sources) Nonsteroidal Anti-inflammatory Drug Start: 12-23-2023 take 1 tablet by mouth every six hours as needed for pain [place] 6-Rqd-Sqr-Fish Oil (11 sources) Start: 05-12-2020 take 1 capsule by mouth once daily [place] 9-Eab-Sep-Fish Oil Active 1 CAP PO DAILY May 12, 2020 12:00am Start: 05-12-2020 take 1 capsule by mo [facility] once daily [place] 0-Wzm-Rfv-Fish Oil Active 1 CAP PO DAILY May 11, 2020 11:00pm ramipril 2.5 mg oral capsule (20 sources) Angiotensin Converting Enzyme Inhibitor Start: 08-26-2018 take 1 capsule by mouth once daily tamsulosin hydrochloride 0.4 mg oral capsule (5 sources) alpha-Adrenergic Regina Start: 05-06-2025 take 1 capsule by mouth at bedtime Start: 12-23-2023 End: 12-30-2023 take 1 capsule by mouth once daily Tamsulosin (Flomax) 0.4 mg capsule Discontinued 0.4 mg PO DAILY 10 December 23, 2023 12:00am December 30, 2023 8:54am vitamin e 90 mg oral capsule (15 sources) Start: 08-25-2020 take 1 capsule by mouth once d aily Completed/Discontinued Medications Medication Drug Class(es) Dates Sig [...] three times daily as needed for cough Tessalon Perles 100 MG Oral Capsule 1 (one) [...] Start: 06-06-2022 ciprofloxacin 500 mg oral tablet (4 sources) Quinolone Antimicrobial Start: 12-23-2023 End: 12-30-2023 take 1 tablet by mouth twice daily Ciprofloxacin Hcl 500 mg tablet Discontinued 500 mg PO TWICE A DAY 6 0 December 23, 2023 12:00am December 30, [...] mg Tablet Discontinued 100 mg PO DAILY March 07, 2022 12:00am August 08, 2022 3:42pm Chronic myeloid leukemia Chronic myeloid leukemia, BCR/ABL-positive, not having achieved remission Comment on above: [facility] 100 mg oral tablet (15 sources) Tetracycline-class Drug Start: 03-18-2021 End: 07-09-2022 [...] tablet (20 sources) Start: 04-25-2020 End: 12-21-2020 [place] 2-Zrg-Wob-Fish Oil 500 MG capsule,delayed release(DR/EC) (4 sources) Start: 05-12-2020 End: 11-05-2024 [place] 7-Xeq-Ssk-Fish Oil 500 MG capsule,delayed release(DR/EC) Discontinued 1 NMA PO DAILY May 12, 2020 12:00am November 05, 2024 11:39am omega-3 acid ethyl esters ([facility]) 1000 mg oral capsule (15 sources) Start: 09-02-2018 End: 12-15-2019 [place] 4-Rqb-Azd-Fish Oil (Fish Oil) 1,000 mg (120 mg-180 [...] 9:08am Comment on above: s/p hiatal hernia moore rgery ondansetron 8 mg oral tablet (20 sources) Serotonin-3 Receptor Antagonist Start: 11-20-2023 End: 11-05-2024 take 1 tablet by mouth every eight hours as needed for nausea Ondansetron Hcl 8 mg tablet Discontinued 8 mg PO EVERY 8 HOURS NEEDED as needed for Nausea/Emesis 30 November 20, 2023 9:08am November 05, 2024 [...] as needed for Nausea And Vomiting 60 August 08, 2022 3:44pm May 03, 2023 12:31pm Chronic myeloid leukemia Chronic myeloid leukemia, BCR/ABL-positive, not having achieved remission Start: 05-05-2020 End: 07-09-2022 take 1 tablet by mouth every eight hours as needed for nausea Ondansetron Hcl 8 MG tablet Discontinued 8 mg PO EVERY 8 HOURS NEEDED as needed for Nausea/Emesis 30 May 05, 2020 12:00am July 09, 2022 9:15am Chronic myeloid leukemia Chemotherapy-induced nausea and vomiting Chronic myeloid leukemia, BCR/ABL-positive, not having achieved remission Nausea with vomiting, unspecified phenazopyridine hydrochloride 100 mg oral tablet (4 sources) Start: 12-23-2023 End: 11-05-2024 take 1 [...] 5 x daily for 3- 5 min sulfamethoxazole 800 mg / trimethoprim 160 mg oral tablet (20 sources) Dihydrofolate Reductase Inhibitor Antibacterial, Sulfonamide Antimicrobial Start: 02-17-2024 End: 02-22-2025 Sulfamethoxazole-Trime thoprim 800-160 mg tablet Discontinued 1 {tbl} PO 3 TIMES A WEEK 36 August 16, 2024 11:21pm February 22, 2025 5:55am Chronic myeloid leukemia Chronic myeloid leukemia, BCR/ABL-positive, not having achieved remission Start: 08-23-2022 End: 02-17-2024 take 1 tablet by mouth once daily Sulfamethoxazole-Trimethoprim (Bactrim D s) 800-160 mg tablet Discontinued 1 {tbl} PO .COMPLEX 36 August 22, 2023 3:05pm February 17, 2024 5:17pm Chronic myeloid leukemia Chronic myeloid leukemia, BCR/ABL-positive, not having achieved remission 1 TAB orally daily on Mondays, wednesdays and Fridays only; Vitamin D (20 sources) vitamin d Inacti ve vitamin d Active Problems Active Problems Problem Classification Problem Date Documented Date Episodic/Chronic Abdominal pain (20 sources) Abdominal pain; Translations: [Abdominal pain] Resolved: 12-04-2018 10-31-2018 Episodic Comment on above: recent surgery, told to use cough pillow, was seen by Cebul yesterday to be seen 4-15, abd pain improved with control of cough s/p hiatal hernia moore rgery recent surgery, told to use cough pillow, was seen by Cebul yesterday to be seen 4-15 Adjustment disorders (16 sources) Stress; Translations: [Stress] 08-15-2022 Chronic Administrative/social admission (20 sources) Counseling procedure with explicit context; Translations: [Patient encounter status] 08-26-2018 Episodic Calculus of urinary tract (4 sources) Kidney stone; Translations: [Calculus of kidney] 12-31-2023 Episodic Chronic obstructive pulmonary disease and bronchiectasis (17 sources) Moderate chronic obstructive pulmonary disease; Translations: [COPD, moderate] 01-30-2023 Chronic Complications of surgical procedures or medical care (20 sources) Drug therapy finding; Translations: [Medication side effect] Resolved: 04-13-2019 04-13-2019 Episodic Coronary atherosclerosis and other heart disease (20 sources) Atherosclerotic heart disease of [place] coronary artery without angina pectoris; Translations: [Multi [...] refer to podiatry Other connective tissue disease (15 sources) Left sided abdominal pain; Translations: [Myalgia, other site] 06-11-2022 Episodic Other diseases of kidney and ureters (4 sources) Hydronephrosis with renal and ureteral calculous [...] later if needed can do pred and proair/- cough resolved but pt feels its the [...] later if needed can do pred and proair6/19- cough resolved but pt feels its the [...] was good - Other lower respiratory disease (15 sources) Dyspnea on exertion; Translations: [Other forms of dyspnea] 12-12-2019 Episodic Other lower respiratory disease (15 sources) Pleuritic pain; Translations: [Pleurodynia] 08-17-2021 Episodic Other lower respiratory disease (14 sources) Respiratory insufficiency; Translations: [Other abnormalities of [...] [Weight gain] Resolved: 04-13-2019 08-26-2018 Episodic Other screening for suspected conditions (not mental disorders or infectious disease) (20 sources) Screening status; Translations: [Encounter for screening for malignant neoplasm of prostate (Renamed from Screening for prostate cancer)] 05-02-2020 Episodic Other skin disorders (15 sources) Excessive sweating; Translations: [Generalized hyperhidrosis] 03-07-2020 Episodic Other upper respiratory infections (15 sources) Viral upper respiratory tract infection; Translations: [...] Resolved: 12-24-2019 02-05-2020 Episodic Residual codes; unclassified (4 sources) Past history of procedure; Translations: [Other [...] rx n said-no better refer to podiatry Residual codes; unclassified (20 sources) Preoperative state; [...] Test Name Value Interpretation Reference Range Facility Low Dose CT Lung Screeningon 05-26-[address] Lung Screening [facility] Imaging Services [address] [place] [address] Lung Screening MR#: [id number] Acct: [id number] Name: FREDERIC OVALLES Rep #: [id number] : 1960 M 64 From: Jeovanny medeiros MD PCP: Dr. Jocelin Saunders, DO Status: [facility] CLI Study: Low Dose CT Lung Screening Date of Exam: 05/26 Exam# [id number] Ordering Dr: Karin De La Rosa PHOTOCOMPOSITION KEYBOARD OPERATOR PHOTOCOMPOSITION KEYBOARD OPERATOR-C PROCEDURE: LOW DOSE CT LUNG SCREENING 05/26/2025 REASON FOR EXAM: SMOKER Patient has smoked 1 pack per day for 40 years. COPD. TECHNIQUE: Procedure Code: CTLUNGSCREEN Modality: CT Procedure: LOW DOSE CT LUNG SCREENING Coronal and Sagittal reconstruction series were provided. One or more dose reduction techniques were used (e.g., Automated exposure control, adjustment of the mA and/or kV according to patient size, use of iterative reconstruction technique). REFERENCE LINK: [facility] Lung-RADS RADIATION DOSE SUMMARY: CTDlvol: 4.02 mGy DLP: 148.48 mGycm COMPARISON: May 25, 2024. FINDINGS: PULMONARY NODULES: (Only nodules >3mm are reported) Nodules described below are on series 1 unless otherwise specified. Pulmonary Nodules: No suspicious pulmonary nodule is seen. Hardware:None Lymph Nodes:No significant lymph nodes are present. Heart and Vasculature:Mild cardiomegaly.Small pericardial effusion. Atherosclerotic plaque formation of the aortic arch. Coronary Artery Calcifications: Present Lungs and Airways: Moderate-sized right pleural effusion. This has increased in size as compared to prior study. Increased markings in the right middle lobe with thickening of the right minor fissure. Pleura:Increasing right pleural effusion. Upper Abdomen:Unremarkable Bones:Degenerative changes of the thoracic spine. CT/Low Dose CT Lung Screening IMPRESSION: No suspicious pulmonary nodule present. Pericardial effusion. Increasing right pleural effusion. Coronary artery calcification (CAC) is is present Lung-RADS Category: 2 BENIGN (BASED ON IMAGING FEATURES OR INDOLENT BEHAVIOR). RECOMMEND 12-MONTH SCREENING LDCT. Other Significant Findings: Reading Location: [id number] CC: PHOTOCOMPOSITION KEYBOARD OPERATORDelphine De La Rosa; Dr. Jocelin Saunders DO Travel Money Advisor: Signed Normal [facility] 12 Lead EKGon 05-20-2025 12 Lead EKG [facility] Cardiovascular Services [address] [place] [address] 12 Lead EKG 05/20/25 1213 MR#: [id number] Acct: [id number] Name: FREDERIC OVALLES Rep #: [id number] : 1960 64 From: Hector Hsu MD Attending Dr: Dr. Jhonatan Dunn MD Status: REG CLI Ordering Dr: Jhonatan Dunn MD Date: 05/20/25 Location: [facility] Sex: M C Admitted: Test Reason : PREOP Blood Pressure : */* mmHG Vent. Rate : 67 BPM Atrial Rate : 67 BPM P-R Int : 160 ms QRS Dur : 96 ms QT Int : 384 ms P-R-T Axes : -5 1 -4 degrees QTcB Int : 405 ms Normal sinus rhythm Normal ECG Confirmed by HECTOR HSU MD ([id number]), city editor RULA VAZQUEZ ([id number]) on 05/21/2025 9:58:45 AM Referred By: Jhonatan Dunn Confirmed By: HECTOR HSU MD 05/21/25 0958 Date Hector Hsu MD CC: Dr. Jocelin Saunders DO; Dr. Jhonatan Dunn MD Signed Normal [facility] Basic Metabolic Profile (BMP )on 05-20-2025 BUN/CRE 13.6 RATIO Normal 10-20 [facility] Comment on above: Performed By: #### L 100.0100, L500.4050, L3410.9999 #### [facility] [address] [place], [address] Calcium [Mass/Vol] 9.1 mg/dL Normal 7.6-11.0 [facility] Comment on above: Performed By: #### L 100.0100, L500.4050, L3410.9999 #### [facility] [address] [place], [address] Chloride [Moles/Vol] 102 mmol/L Normal 98-108 [facility] Comment on above: Performed By: #### L 100.0100, L500.4050, L3410.9999 #### [facility] [address] [place], [address] CO2 [Moles/Vol] 28.0 mmol/L Normal 21.0-32.0 [facility] Comment on above: Performed By: #### L 100.0100, L500.4050, L3410.9999 #### [facility] [address] [place], [address] Creatinine [Mass/Vol] 0.77 mg/dL Normal 0.70-1.20 [facility] Comment on above: Performed By: #### L 100.0100, L500.4050, L3410.9999 #### [facility] [address] [place], [address] GAP 10 Normal 5-15 [facility] Comment on above: Performed By: #### L 100.0100, L500.4050, L3410.9999 #### [facility] [address] [place], [address] GFR/1.73 sq M.predicted among non-blacks MDRD (S/P/Bld) [Vol rate/Area] 100 mL/min/{1.73_m2} Normal >60 [facility] Comment on above: Result Comment: mL/m in/1.73m2 CKD-EPI Creatinine Equation (2020) Performed By: #### L 100.0100, L500.4050, L3410.9999 #### [facility] [address] [place], [address] Glucose [Mass/Vol] 156 mg/dL High 70-99 [facility] Comment on above: Performed By: #### L 100.0100, L500.4050, L3410.9999 #### [facility] [address] [place], [address] Potassium [Moles/Vol] 4.1 mmol/L Normal 3.3-5.1 [facility] Comment on above: Performed By: #### L 100.0100, L500.4050, L3410.9999 #### [facility] [address] [place], [address] Sodium [Moles/Vol] 140 mmol/L Normal 133-145 [facility] Comment on above: Performed By: #### L 100.0100, L500.4050, L3410.9999 #### [facility] [address] [place], [address] Urea nitrogen [Mass/Vol] 11 mg/dL Normal 4-19 [facility] Comment on above: Performed By: #### L 100.0100, L500.4050, L3410.9999 #### [facility] [address] [place], [address] CBC-Complete Blood Cnt No Di ffon 05-20-2025 Erythrocyte distribution width (RBC) [Ratio] 13.2 % Normal 11.6-14.6 [facility] Comment on above: Performed By: #### L 100.0100, L500.4050, L3410.9999 #### [facility] [address] [place], [address] Hematocrit (Bld) [Volume fraction] 44.6 % Normal 40-54 [facility] Comment on above: Performed By: #### L 100.0100, L500.4050, L3410.9999 #### [facility] [address] [place], [place], [address] Hemoglobin (Bld) [Mass/Vol] 14.9 g/dL Normal 13.0-16.5 [facility] Comment on above: Performed By: #### L 100.0100, L500.4050, L3410.9999 #### [facility] [address] [place], [address] MCH (RBC) [Entitic mass] 29.2 pg Normal 27.0-32.0 [facility] Comment on above: Performed By: #### L 100.0100, L500.4050, L3410.9999 #### [facility] [address] [place], [address] MCHC (RBC) [Mass/Vol] 33.4 g/dL Normal 32-36 [facility] Comment on above: Performed By: #### L 100.0100, L500.4050, L3410.9999 #### [facility] [address] [place], [address] MCV (RBC) [Entitic vol] 87.5 fL Normal 80-94 [facility] Comment on above: Performed By: #### L 100.0100, L500.4050, L3410.9999 #### [facility] [address] [place], [address] Platelet mean volume (Bld) [Entitic vol] 10.6 fL Normal 6.2-12.0 [facility] Comment on above: Performed By: #### L 100.0100, L500.4050, L3410.9999 #### [facility] [address] [place], [address] Platelets (Bld) [#/Vol] 231 10*3/uL Normal 150-450 [facility] Comment on above: Performed By: #### L 100.0100, L500.4050, L3410.9999 #### [facility] [address] [place], [address] RBC (Bld) [#/Vol] 5.10 10*6/uL Normal 4.6-6.2 [facility] Comment on above: Performed By: #### L 100.0100, L500.4050, L3410.9999 #### [facility] [address] [place], [address] RDW SD 42.4 fl Normal 35.1-43.9 [facility] Comment on above: Performed By: #### L 100.0100, L500.4050, L3410.9999 #### [facility] [address] [place], [address] WBC (Bld) [#/Vol] 6.7 10*3/uL Normal 4.4-11.0 [facility] Comment on above: Performed By: #### L 100.0100, L500.4050, L3410.9999 #### [facility] [address] [place], [address] Stress Reporton 05-11-2025 Stress Report [facility] [address] [place] [address] MR#: [id number] Acct: [id number] Name: FREDERIC OVALLES Alyx Rep #: [id number] : 1960 64 From: Hector Hsu MD Primary Care: Dr. Jocelin Saunders, DO Status: REG CLI Referring Dr: Hector Hsu MD Sex: M C Stress Test Report Exercise myocardial perfusion stress test. 64-year-old man with a history of coronary artery. Stress protocol: Resting EKG demonstrates normal sinus rhythm with a rate of 56 bpm resting blood pressure is 124/78 mmHg. The patient exercised according to the regular Gallito protocol for a total duration of 7-1/2 minutes attaining a maximum heart rate of 120 bpm which was 80% of maximum predicted heart rate; the maximum [...] being achieved/fatigue. The peak blood pressure was 174/70 mmHg. Rate-pressure product was 21 900. Myocardial perfusion protocol. 15.3 mCi of technetium 99m sestamibi was injected at rest. The patient exercised according to regular Gallito protocol for total duration of 7-1/2 minutes and at peak exercise 45 mCi of technetium 99m sestamibi was injected [...] SPECT analysis: The gated ejection fraction is 67%. Conclusion: Normal exercise myocardial perfusion stress test at a high workload. 05/11/25 1019 Date Hector Hsu MD CC: Dr. Hector Hsu MD; Dr. Jocelin Saunders DO Date Dictated: 05/11/251014 Date Transcribed: 05/11/251014 [employer]: [place] Signed Normal [facility] Oncology Visit Reporton 04-21 Oncology Visit Report [facility] [place] [address] OFFICE VISIT Date of Service: 05/06/25 1054 MR#: [id number] Acct: [id number] Name: FREDERIC OVALLES Rep #: [id number] : 1960 From: Sawyer Delgado MD Age/Sex: 64/M Location: [facility] Status: Signed HPI Subjective Date of Service [...] neoplasm. The flow cytometry analysis report from [facility] is reviewable in the patient???s EMR. BONE [...] and megakaryocytes. ADDENDUM FISH BCR/ABL1 REPORT FROM [facility] INTERPRETATION: BCR/ABL gene rearrangement is detected. 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 Bosutinib August 10, 2022-ongoing MMR (January 2023) [facility] Medical History Chronic myeloid leukemia Low back [...] Nicotine dependence Atherosclerosis of coronary artery of [place] heart without angina pectoris Obesity (BMI 30.0-34.9) [...] household members: (more content not included)... Normal [facility] L3410.9992on 04-29-2025 [facility]. COMMENT Normal . [facility] Comment on above: Order Comment: [id number] BCR/ABL Result Comment: Test Ordered: [id number] BCR-ABL1, CML/ALL, PCR, Quant e13a2 (b2a2) transcript [...] Reference Range: . Technical Component performed at [facility] Professional Component performed by: Yaquelin Mckeon, PhD, [facility] Director, Molecular Oncology [facility] [id number], [address] [address] Background Comment LUU Reference Range: . This [...] developed and its performance characteristics determined by [employer]. It has not been cleared or approved by the Food and Drug Administration. References Comment Reference Range: . 1) Israel T, Allyson S. Molecular monitoring of chronic myeloid leukemia. Semin Hematol. 2003 Oct; 40(2 Suppl 2):62-68. 2) NCCN Clinical Practice Guidelines in Oncology Chronic Myeloid Leukemia Version 1.2024 - February 27, 2024 3) Clara KRUSE, Dileep P, Elina P, et al. Establishment of the of the first World Health Organization International Genetic Reference Panel for quantitation of BCR-ABL mRNA. Blood. 2010 25; 116(22):m323-986. Performed at: [facility] [address] [place], [place] [id number] Prosthodontist: Sherri Davey [facility], Phone: [phone] Performed at: - [facility] [address] [place], [place] [id number] Prosthodontist: Sherri Davey [facility], Phone: [phone] Performed at: [facility] [address] [id number] Prosthodontist: Michael Ragsdale PhD, Phone: [phone] Performed By: #### L 3410.9992 #### [facility] [address] [place] [address], [address] Bilirubin directOrdered By: Hector Hsu on 04-26-2025 Bilirubin.direct [Mass/Vol] 0.16 mg/dL 0.00-0.30 [facility] Bilirubin, totalOrdered By: Hector Hsu on 04-26-2025 Bilirubin [Mass/Vol] 0.39 mg/dL 0.00-1.30 [facility] Calculated very low density lipoprotein (VLDL) cholesterol measurementOrdered By: Hector Hsu on 04-26-2025 Calculated very low density lipoprotein (VLDL) cholesterol measurement 35 mg/dL 5-40 [facility] Hemoglobin A1con 04-26-2025 HbA1c (Bld) [Mass fraction] 6.3 % High <=5.6 [facility] Comment on above: Result Comment: Norm al < 5.7 % Prediabetic 5.7 - 6.4 % Diabetic >or= 6.5 % Please note range changes. Performed By: #### L 100.0100, L500.4050, L3410.9999 #### [facility] [address] [place], [address] Hemoglobin A1c percentageOrd ered By: Hector Hsu on 04-26-2025 HbA1c (Bld) [Mass fraction] 6.3 % High <5.7 [facility] Comment on above: Normal < 5.7 % Predi abetic 5.7 - 6.4 % Diabetic >or= 6.5 % Please note range changes. LDL calc ser/plasOrdered By: Hector Hsu on 04-26-2025 Cholesterol in LDL [Mass/Vol] 71 mg/dL [facility] Comment on above: Mjngyfcahx=479-757 m g/dL & Higher Vcjp=646 mg/dL or greaterFriedwald Equation for LDL-C Laboratory - Chemistry and C hemistry - challengeOrdered By: Hector Hsu on 04-26-2025 AST [Catalytic activity/Vol] 27 U/L <38 [facility] Lipid Profileon 04-26-2025 CHOL:HDL 3.46 Normal [facility] Comment on above: Performed By: #### L 100.0100, L500.4050, L3410.9999 #### [facility] [address] [place], [address] Cholesterol [Mass/Vol] 149 mg/dL Normal <=200 [facility] Comment on above: Result Comment: Chol esterol level, Desirable <200 mg/dL Borderline high cholesterol 200-239 mg/dL High cholesterol >=240 mg/dL Recommendations of the NCEP Adult Treatment Panel for the following risk-cutoff thresholds for the [place] population. Performed By: #### L 100.0100, L500.4050, L3410.9999 #### [facility] [address] [place], [address] Cholesterol in HDL [Mass/Vol] 43 mg/dL Normal [facility] Comment on above: Result Comment: Amanda onal Cholesterol Education Program (NCEP) guidelines: <40 mg/dL: Low HDL-cholesterol (major risk factor for CHD) >= 60 mg/dL: High HDL-cholesterol (negative risk factor for CHD) HDL-cholesterol is affected by a number of factors, e.g. smoking, exercise, hormones, sex and age. Performed By: #### L 100.0100, L500.4050, L3410.9999 #### [facility] [address] [place], [address] Cholesterol in LDL [Mass/Vol] 71 mg/dL Normal [facility] Comment on above: Result Comment: Bord oaaghl=053-931 mg/dL Higher Itvm=620 mg/dL or greater Friedwald Equation for LDL-C Performed By: #### L 100.0100, L500.4050, L3410.9999 #### [facility] [address] [place], [address] Cholesterol in VLDL [Mass/Vol] 35 mg/dL Normal 5-40 [facility] Comment on above: Performed By: #### L 100.0100, L500.4050, L3410.9999 #### [facility] [address] [place], [address] Triglyceride [Mass/Vol] 175 mg/dL Normal [facility] Comment on above: Result Comment: The drugs N-Acetylcysteine and Metamizole may falsely depress this assay. Normal range: <150 mg/dL Borderline High: 150-199 mg/dL High: 200-499 mg/dL Very High: >500 mg/dL Performed By: #### L 100.0100, L500.4050, L3410.9999 #### [facility] [address] [place], [address] Liver Profileon 04-26-2025 Albumin [Mass/Vol] 4.4 g/dL Normal 3.4-4.8 [facility] Comment on above: Performed By: #### L 100.0100, L500.4050, L3410.9999 #### [facility] [address] [place], [address] ALK PHOS 75 U/L Normal 40-129 [facility] Comment on above: Performed By: #### L 100.0100, L500.4050, L3410.9999 #### [facility] [address] [place], [address] ALT [Catalytic activity/Vol] 34 U/L Normal <=46 [facility] Comment on above: Performed By: #### L 100.0100, L500.4050, L3410.9999 #### [facility] [address] [place], [address] AST [Catalytic activity/Vol] 27 U/L Normal <=37 [facility] Comment on above: Performed By: #### L 100.0100, L500.4050, L3410.9999 #### [facility] [address] [place], [address] Bilirubin [Mass/Vol] 0.39 mg/dL Normal 0.00-1.30 [facility] Comment on above: Performed By: #### L 100.0100, L500.4050, L3410.9999 #### [facility] [address] [place], [address] Bilirubin.direct [Mass/Vol] 0.16 mg/dL Normal 0.00-0.30 [facility] Comment on above: Performed By: #### L 100.0100, L500.4050, L3410.9999 #### [facility] [address] [place], [place], [address] Globulin (S) [Mass/Vol] 2.9 g/dL Normal 2.2-4.2 [facility] Comment on above: Performed By: #### L 100.0100, L500.4050, L3410.9999 #### [facility] [address] [place], [address] T PROT 7.3 g/dL Normal 5.9-8.4 [facility] Comment on above: Performed By: #### L 100.0100, L500.4050, L3410.9999 #### [facility] [address] [place], [address] Screening total cholesterol/ high density lipoprotein (HDL) cholesterol ratioOrdered By: Hector Hsu on 04-26-2025 Cholesterol.total/Rica sterol in HDL [Mass ratio] 3.46 {ratio} [facility] Serum globulin measurementOr dered By: Hector Hsu on 04-26-2025 Globulin (S) [Mass/Vol] 2.9 g/dL 2.2-4.2 [facility] Serum or plasma alanine arciniega otransferase (ALT) measurementOrdered By: Hector Hsu on 04-26-2025 ALT [Catalytic activity/Vol] 34 U/L <47 [facility] Serum or plasma albumin mary urement (mass/volume)Ordered By: Hector Hsu on 04-26-2025 Albumin [Mass/Vol] 4.4 g/dL 3.4-4.8 [facility] Serum or plasma alkaline josé miguel sphatase measurementOrdered By: Hector Shadi on 04-26-2025 ALP [Catalytic activity/Vol] 75 U/L 40-129 [facility] Serum or plasma cholesterol in HDL measurement (mass/volume)Ordered By: Hector Hsu on 04-26-2025 Cholesterol in HDL [Mass/Vol] 43 mg/dL >40 [facility] Comment on above: National Cholesterol Education Program (NCEP) guidelines:<40 mg/dL: Low HDL-cholesterol (major risk factor for CHD)>= 60 mg/dL: High HDL-cholesterol (negative risk factor for CHD)HDL-cholesterol is affected by a number of factors, e.g. smoking, exercise, hormones, sex and age. Serum or plasma cholesterol measurement (mass/volume)Ordered By: Hector Hsu on 04-26-2025 Cholesterol [Mass/Vol] 149 mg/dL <201 [facility] Comment on above: Cholesterol level, D esirable <200 mg/dLBorderline high cholesterol 200-239 mg/dLHigh cholesterol >=240 mg/dLRecommendations of the NCEP Adult Treatment Panel for the following risk-cutoff thresholds for the [place] population. T4 Total, Thyroxinon 025 T4 [Mass/Vol] 6.6 ug/dL Normal 4.5-12.1 [facility] Comment on above: Performed By: #### L 100.0100, L500.4050, L3410.9999 #### [facility] [address] [place], [place], [id number] TSH DL <= 0.005 mIU/L QnOrde red By: Hector Hsu on 04-26-2025 TSH Qn 3.320 uIU/mL 0.300-4.20 0 [facility] Thyroid Stim Hormone (TSH)on 04-26-2025 TSH 3.320 uIU/mL Normal 0.300-4.20 0 [facility] Comment on above: Performed By: #### L 100.0100, L500.4050, L3410.9999 #### [facility] [address] [place], [place], [id number] ThyroxineOrdered By: Hector parks on 04-26-2025 T4 [Mass/Vol] 6.6 ug/dL 4.5-12.1 [facility] Total proteinOrdered By: Wendy Hsu on 04-26-2025 Protein [Mass/Vol] 7.3 g/dL 5.9-8.4 [facility] Triglycerides measurementOrd ered By: Hector Hsu on 04-26-2025 Triglyceride [Mass/Vol] 175 mg/dL <199 [facility] Comment on above: The drugs N-Acetylcy steine and Metamizole may falsely depress this assay. Normal range: <150 mg/dLBorderline High: 150-199 mg/dLHigh: 200-499 mg/dLVery High: >500 mg/dL Absolute lymphocyte countOrd ered By: Savi Rodriguez on 04-22-2025 Lymphocytes Auto (Unsp spec) [#/Vol] 1.19 10*3/uL 0.83-4.51 [facility] Absolute neutrophil countOrd ered By: Savi Rodriguez on 04-22-2025 Neutrophils (Bld) [#/Vol] 4.8 10*3/uL 2.0-7.7 [facility] Anion gap in Serum or Plasma Ordered By: Savi Rodriguez on 04-22-2025 Anion gap [Moles/Vol] 12 mmol/L 5- [facility] Automated lymphocyte count a s percentage of total leukocytesOrdered By: Savi Rodriguez on 04-22-2025 Lymphocytes/100 WBC Auto (Unsp spec) 16.7 % Low - [facility] BUN/creatinine ratioOrdered By: Savi Rodriguez on 04-22-2025 Urea nitrogen/Creatinine [Mass ratio] 15.8 mg/mg 10 [facility] Basophil percentageOrdered B y: Savi Rodriguez on 04-22-2025 Basophils/100 WBC (Bld) 1.0 % 0-1 [facility] CBC W/Diff, Automatedon Absolute Lymph 1.19 X10 3/uL Normal 0.83-4.51 [facility] Comment on above: Performed By: #### L 100.0100, L500.4050, L3410.9999 #### [facility] [address] [place], [place], [address] Absolute Neut 4.8 X10 3/uL Normal 2.0-7.7 [facility] Comment on above: Performed By: #### L 100.0100, L500.4050, L3410.9999 #### [facility] [address] [place], [address] Basophils/100 WBC (Bld) 1.0 % Normal 0-1 [facility] Comment on above: Performed By: #### L 100.0100, L500.4050, L3410.9999 #### [facility] [address] [place], [address] Eosinophils/100 WBC (Bld) 4.9 % Normal 0-5 [facility] Comment on above: Performed By: #### L 100.0100, L500.4050, L3410.9999 #### [facility] [address] [place], [address] Erythrocyte distribution width (RBC) [Ratio] 13.1 % Normal 11.6-14.6 [facility] Comment on above: Performed By: #### L 100.0100, L500.4050, L3410.9999 #### [facility] [address] [place], [address] Hematocrit (Bld) [Volume fraction] 44.8 % Normal 40-54 [facility] Comment on above: Performed By: #### L 100.0100, L500.4050, L3410.9999 #### [facility] [address] [place], [address] Hemoglobin (Bld) [Mass/Vol] 15.4 g/dL Normal 13.0-16.5 [facility] Comment on above: Performed By: #### L 100.0100, L500.4050, L3410.9999 #### [facility] [address] [place], [address] IG% 0.300 Normal 0.0-0.9 [facility] Comment on above: Result Comment: IG% - Immature Granulocytes (promyelocytes, myelocytes and metamyelocytes) > 1% indicates that a LEFT SHIFT is Present. Performed By: #### L 100.0100, L500.4050, L3410.9999 #### [facility] [address] [place], [address] Lymphocytes/100 WBC (Bld) 16.7 % Low 19-41 [facility] Comment on above: Performed By: #### L 100.0100, L500.4050, L3410.9999 #### [facility] [address] [place], [address] MCH (RBC) [Entitic mass] 29.6 pg Normal 27.0-32.0 [facility] Comment on above: Performed By: #### L 100.0100, L500.4050, L3410.9999 #### [facility] [address] [place], [address] MCHC (RBC) [Mass/Vol] 34.4 g/dL Normal 32-36 [facility] Comment on above: Performed By: #### L 100.0100, L500.4050, L3410.9999 #### [facility] [address] [place], [address] MCV (RBC) [Entitic vol] 86.2 fL Normal 80-94 [facility] Comment on above: Performed By: #### L 100.0100, L500.4050, L3410.9999 #### [facility] [address] [place], [address] Monocytes/100 WBC (Bld) 9.8 % Normal 0-10 [facility] Comment on above: Performed By: #### L 100.0100, L500.4050, L3410.9999 #### [facility] [address] [place], [address] Neutrophils/100 WBC (Bld) 67.3 % Normal 47-70 [facility] Comment on above: Performed By: #### L 100.0100, L500.4050, L3410.9999 #### [facility] [address] [place], [address] Nucleated RBC (Bld) [#/Vol] 0 10*3/uL Normal 0-5 [facility] Comment on above: Performed By: #### L 100.0100, L500.4050, L3410.9999 #### [facility] [address] [place], [address] Platelet mean volume (Bld) [Entitic vol] 11.0 fL Normal 6.2-12.0 [facility] Comment on above: Performed By: #### L 100.0100, L500.4050, L3410.9999 #### [facility] [address] [place], [address] Platelets (Bld) [#/Vol] 233 10*3/uL Normal 150-450 [facility] Comment on above: Performed By: #### L 100.0100, L500.4050, L3410.9999 #### [facility] [address] [place], [address] RBC (Bld) [#/Vol] 5.20 10*6/uL Normal 4.6-6.2 [facility] Comment on above: Performed By: #### L 100.0100, L500.4050, L3410.9999 #### [facility] [address] [place], [address] RDW SD 40.5 fl Normal 35.1-43.9 [facility] Comment on above: Performed By: #### L 100.0100, L500.4050, L3410.9999 #### [facility] [address] [place], [address] WBC (Bld) [#/Vol] 7.1 10*3/uL Normal 4.4-11.0 [facility] Comment on above: Performed By: #### L 100.0100, L500.4050, L3410.9999 #### [facility] [address] [place], [address] Carbon dioxide, total [Moles /volume] in Central venous bloodOrdered By: Savi Michael on 04-22-2025 CO2 [Moles/Vol] 23.2 mmol/L 21.0-32.0 [facility] Chloride assayOrdered By: Ty ra Michael on 04-22-2025 Chloride [Moles/Vol] 103 mmol/L 98-108 [facility] Comprehensive Metabolic Prof ilon 04-22-2025 Albumin [Mass/Vol] 4.6 g/dL Normal 3.4-4.8 [facility] Comment on above: Performed By: #### L 100.0100, L500.4050, L3410.9999 #### [facility] [address] [place], [address] Albumin/Globulin [Mass ratio] 1.6 {ratio} Normal 0.9-2.4 [facility] Comment on above: Performed By: #### L 100.0100, L500.4050, L3410.9999 #### [facility] [address] [place], [address] ALK PHOS 74 U/L Normal 40-129 [facility] Comment on above: Performed By: #### L 100.0100, L500.4050, L3410.9999 #### [facility] [address] [place], [address] ALT [Catalytic activity/Vol] 44 U/L Normal <=46 [facility] Comment on above: Performed By: #### L 100.0100, L500.4050, L3410.9999 #### [facility] [address] [place], [address] AST [Catalytic activity/Vol] 35 U/L Normal <=37 [facility] Comment on above: Performed By: #### L 100.0100, L500.4050, L3410.9999 #### [facility] [address] [place], [address] Bilirubin [Mass/Vol] 0.31 mg/dL Normal 0.00-1.30 [facility] Comment on above: Performed By: #### L 100.0100, L500.4050, L3410.9999 #### [facility] [address] [place], [address] BUN/CRE 15.8 RATIO Normal 10-20 [facility] Comment on above: Performed By: #### L 100.0100, L500.4050, L3410.9999 #### [facility] [address] [place], [address] Calcium [Mass/Vol] 9.1 mg/dL Normal 7.6-11.0 [facility] Comment on above: Performed By: #### L 100.0100, L500.4050, L3410.9999 #### [facility] [address] [place], [address] Chloride [Moles/Vol] 103 mmol/L Normal 98-108 [facility] Comment on above: Performed By: #### L 100.0100, L500.4050, L3410.9999 #### [facility] [address] [place], [address] CO2 [Moles/Vol] 23.2 mmol/L Normal 21.0-32.0 [facility] Comment on above: Performed By: #### L 100.0100, L500.4050, L3410.9999 #### [facility] [address] [place], [address] Creatinine [Mass/Vol] 0.85 mg/dL Normal 0.70-1.20 [facility] Comment on above: Performed By: #### L 100.0100, L500.4050, L3410.9999 #### [facility] [address] [place], [address] ECRCL 112.64 ml/min Normal 50-250 [facility] Comment on above: Performed By: #### L 100.0100, L500.4050, L3410.9999 #### [facility] [address] [place], [address] GAP 12 Normal 5-15 [facility] Comment on above: Performed By: #### L 100.0100, L500.4050, L3410.9999 #### [facility] [address] [place], [address] GFR/1.73 sq M.predicted among non-blacks MDRD (S/P/Bld) [Vol rate/Area] 97 mL/min/{1.73_m2} Normal >60 [facility] Comment on above: Result Comment: mL/m in/1.73m2 CKD-EPI Creatinine Equation (2020) Performed By: #### L 100.0100, L500.4050, L3410.9999 #### [facility] [address] [place], [address] Globulin (S) [Mass/Vol] 2.9 g/dL Normal 2.2-4.2 [facility] Comment on above: Performed By: #### L 100.0100, L500.4050, L3410.9999 #### [facility] [address] [place], [address] Glucose [Mass/Vol] 135 mg/dL High 70-99 [facility] Comment on above: Performed By: #### L 100.0100, L500.4050, L3410.9999 #### [facility] [address] [place], [address] Potassium [Moles/Vol] 4.1 mmol/L Normal 3.3-5.1 [facility] Comment on above: Performed By: #### L 100.0100, L500.4050, L3410.9999 #### [facility] [address] [place], [address] Sodium [Moles/Vol] 138 mmol/L Normal 133-145 [facility] Comment on above: Performed By: #### L 100.0100, L500.4050, L3410.9999 #### [facility] [address] [place], [address] T PROT 7.4 g/dL Normal 5.9-8.4 [facility] Comment on above: Performed By: #### L 100.0100, L500.4050, L3410.9999 #### [facility] [address] [place], [address] Urea nitrogen [Mass/Vol] 13 mg/dL Normal 4-19 [facility] Comment on above: Performed By: #### L 100.0100, L500.4050, L3410.9999 #### [facility] Laboratory [address] [place], [address] Eosinophil percentageOrdered By: Savi Rodriguez on 04-22-2025 Eosinophils/100 WBC (Bld) 4.9 % 0-5 [facility] Erythrocyte distribution wid th ratioOrdered By: Savi Rodriguez on 04-22-2025 Erythrocyte distribution width (RBC) [Ratio] 13.1 % 11.6-14.6 [facility] Erythrocyte distribution wid th standard deviationOrdered By: Savi Rodriguez on 04-22-2025 Erythrocyte distribution width (RBC) [Ratio] 40.5 fl 35.1-43.9 [facility] Glomerular filtration rate ( GFR) estimation/1.73 sq m using serum, plasma, or whole bOrdered By: Savi Rodriguez on 04-22-2025 GFR/1.73 sq M.predicted among non-blacks MDRD (S/P/Bld) [Vol rate/Area] 97 mL/min/{1.73_m2} >60 [facility] Comment on above: mL/min/1.73m2 CKD-EP I Creatinine Equation (2020) Hematocrit Auto (Bld) [Volum e fraction]Ordered By: Savi Rodriguez on 04-22-2025 Hematocrit (Bld) [Volume fraction] 44.8 % 40-54 [facility] Hemoglobin measurementOrdere d By: Savi Rodriguez on 04-22-2025 Hemoglobin (Bld) [Mass/Vol] 15.4 g/dL 13.0-16.5 [facility] Immature granulocytes/100 WB C Auto (Bld)Ordered By: Savi Rodriguez on 04-22-2025 Immature granulocytes/100 WBC (Bld) 0.300 % 0.0-0.9 [facility] Comment on above: IG% - Immature Granu locytes (promyelocytes, myelocytes and metamyelocytes) > 1% indicates that a LEFT SHIFT is Present. MCV (mean corpuscular volume ) determinationOrdered By: Savi Rodriguez on 04-22-2025 MCV (RBC) [Entitic vol] 86.2 fL 80-94 [facility] Mean corpuscular hemoglobin (MCH) determinationOrdered By: Savi Rodriguez on 04-22-2025 MCH (RBC) [Entitic mass] 29.6 pg 27.0-32.0 [facility] Mean corpuscular hemoglobin concentration (MCHC) determinationOrdered By: Savi Rodriguez on 04-22-2025 MCHC (RBC) [Mass/Vol] 34.4 g/dL 32-36 [facility] Mean platelet volume determi nationOrdered By: Savi Rodriguez on 04-22-2025 Platelet mean volume (Bld) [Entitic vol] 11.0 fL 6.2-12.0 [facility] Monocyte percentageOrdered B y: Savi Rodriguez on 04-22-2025 Monocytes/100 WBC (Bld) 9.8 % 0-10 [facility] Neutrophil percentageOrdered By: Savi Rodriguez on 04-22-2025 Neutrophils/100 WBC (Bld) 67.3 % 47-70 [facility] Nucleated red blood cell per centageOrdered By: Savi Rodriguez on 04-22-2025 Nucleated RBC/100 WBC (Bld) [Ratio] 0 % 0-5 [facility] Platelet countOrdered By: Derik Rodriguez on 04-22-2025 Platelets (Bld) [#/Vol] 233 10*3/uL 150-450 [facility] Potassium measurement (mass/ volume)Ordered By: Savi Rodriguez on 04-22-2025 Potassium (Unsp spec) [Mass/Vol] 4.1 mmol/L 3.3-5.1 [facility] RBC Auto (Bld) [#/Vol]Ordere d By: Savi Rodriguez on 04-22-2025 RBC (Bld) [#/Vol] 5.20 10*6/uL 4.6-6.2 [facility] Serum creatinine measurement (mass/volume)Ordered By: Savi Rodriguez on 04-22-2025 Creatinine [Mass/Vol] 0.85 mg/dL 0.70-1.20 [facility] Serum glucose measurement (m ass/volume)Ordered By: Savi Rodriguez on 04-22-2025 Glucose [Mass/Vol] 135 mg/dL High 70-99 [facility] Serum or plasma albumin/glob ulin mass ratioOrdered By: Savi Rodriguez on 04-22-2025 Albumin/Globulin [Mass ratio] 1.6 {ratio} 0.9-2.4 [facility] Serum or plasma calcium mary urement (mass/volume)Ordered By: Savi Rodriguez on 04-22-2025 Calcium [Mass/Vol] 9.1 mg/dL 7.6-11.0 [facility] Serum or plasma urea nitroge n measurement (mass/volume)Ordered By: Savi Rodriguez on 04-22-2025 Urea nitrogen [Mass/Vol] 13 mg/dL 4-19 [facility] Sodium levelOrdered By: Savi Rodriguez on 04-22-2025 Sodium [Moles/Vol] 138 mmol/L 133-145 [facility] White blood cell (WBC) count Ordered By: Savi Rodriguez on 04-22-2025 WBC (Bld) [#/Vol] 7.1 10*3/uL 4.4-11.0 [facility] Cardiology Visit Reporton Cardiology Visit Report [facility] [address] [place] [address] OFFICE VISIT Date of Service: 04/16/25 MR#: [id number] Acct: [id number] Name: FREDERIC OVALLES Rep #: [id number] : 1960 Provider: Dr. Hector Hsu MD Age/Sex: 64/M Location: [facility] Status: Signed HPI HPI History [...] air Intake Visit Reasons: 1 Y FU Operator Cavity Pump Required: No Accompanied by: Self Is patient [...] (primary) hypertension (more content not included)... Normal [facility] Oncology Visit Reporton 01-19 Oncology Visit Report [facility] [address] [facility] 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 Status: Signed HPI Subjective Date of Service [...] neoplasm. The flow cytometry analysis report from [employer] is reviewable in the patient???s EMR. BONE [...] and megakaryocytes. ADDENDUM FISH BCR/ABL1 REPORT FROM [employer] INTERPRETATION: BCR/ABL gene rearrangement is detected. RESULTS: BCR/ABL1 Normal Nuclei Positive Nuclei with Dual Fusion 3.33% 96.67% CYTOGENETICS REPORT FROM [employer] INTERPRETATION: Abnormal male karyotype was observed in [...] as good, PO fluid intake as adequate. [facility] Medical History Chronic myeloid leukemia Low back [...] Nicotine dependence Atherosclerosis of coronary artery of [place] heart without angina pectoris Obesity (BMI 30.0-34.9) Hiatal hernia with GERD History of back problems Surgical History Status post laser lithotripsy of ureteral calculus History of bone marrow biopsy (04/13/20) H (more content not included)... Normal [facility] L3410.9992on 01-26-2025 [facility] Misc. COMMENT Normal . [facility] Comment on above: Order Comment: [id number] 1BCR/ABL - WB LAV - RF Result Comment: Test Ordered: [id number] BCR-ABL1, CML/ALL, PCR, Quant e13a2 (b2a2) transcript [...] detected by this assay. Director Review Comment Reference Range: . Technical Component performed at [facility] Professional Component performed by: Dayan Davila, PhD, [facility] Director, Molecular Oncology [facility] [id number], [address] [facility] [address] Background Comment Reference Range: . This assay [...] developed and its performance characteristics determined by [facility]. It has not been cleared or approved [...] quantitation of BCR-ABL mRNA. Blood. 2010 25; 116(22):q373-318. Performed at: - [facility] [place] [address] [facility], [place] [id number] Prosthodontist: Sherri Davey [facility], Phone: [phone] Performed at: - [facility] [place] [address] [facility], [facility], [place] [id number] Prosthodontist: Sherri Davey [facility], Phone: [phone] Performed at: [facility] [address] [id number] Prosthodontist: Michael Ragsdale PhD, Phone: [phone] Performed By: #### L 100.0100, L500.4050, L3410.9999 #### [facility] [address] [facility] [place], [place], [id number] Absolute lymphocyte countOrd ered By: [facility] Danny on 01-21-2025 Lymphocytes Auto (Unsp spec) [#/Vol] 0.88 10*3/uL 0.83-4.51 [facility] Absolute neutrophil countOrd ered By: [facility] Danny on 01-21-2025 Neutrophils (Bld) [#/Vol] 4.9 10*3/uL 2.0-7.7 [facility] Anion gap in Serum or Plasma Ordered [facility]: [facility] on 01-21-2025 Anion gap [Moles/Vol] 11 mmol/L 5-15 [facility] Automated blood erythrocyte countOrdered By: [facility] Del[facility] on 01-21-2025 RBC (Bld) [#/Vol] 5.11 10*6/uL Normal 4.6-6.2 [facility] Comment on above: Performed By: #### L 3410.9992, L100.0100, L501.2300, L500.4050, L501.5200 #### [facility] [address] [place], [place], [address] Automated blood hematocrit ( percentage)Ordered By: Sawyer Victormarcos on 01-21-2025 Hematocrit (Bld) [Volume fraction] 44.8 % Normal 40-54 [facility] Comment on above: Performed By: #### L 3410.9992, L100.0100, L501.2300, L500.4050, L501.5200 #### [facility] [address] [place], [address] Automated lymphocyte count a s percentage of total leukocytesOrdered By: Sawyer Danny on 01-21-2025 Lymphocytes/100 WBC Auto (Unsp spec) 12.9 % Low 19-41 [facility] BUN/creatinine ratioOrdered By: Sawyer Victormarcos on 01-21-2025 Urea nitrogen/Creatinine [Mass ratio] 14.9 mg/mg 10-20 [facility] Basophil percentageOrdered B y: Sawyer Victormarcos on 01-21-2025 Basophils/100 WBC (Bld) 0.9 % Normal 0-1 [facility] Comment on above: Performed By: #### L 3410.9992, L100.0100, L501.2300, L500.4050, L501.5200 #### [facility] [address] [place], [address] Bilirubin, totalOrdered By: Anthonytimmy Delgado on 01-21-2025 Bilirubin [Mass/Vol] 0.42 mg/dL Normal 0.00-1.30 [facility] Comment on above: Performed By: #### L 3410.9992, L100.0100, L501.2300, L500.4050, L501.5200 #### [facility] [address] [place], [address] CBC W/Diff, Automatedon Absolute Lymph 0.88 X10 3/uL Normal 0.83-4.51 [facility] Comment on above: Performed By: #### L 3410.9992, L100.0100, L501.2300, L500.4050, L501.5200 #### [facility] [address] [place], [address] Absolute Neut 4.9 X10 3/uL Normal 2.0-7.7 [facility] Comment on above: Performed By: #### L 3410.9992, L100.0100, L501.2300, L500.4050, L501.5200 #### [facility] [address] [place], [address] IG% 0.300 Normal 0.0-0.9 [facility] Comment on above: Result Comment: IG% - Immature Granulocytes (promyelocytes, myelocytes and metamyelocytes) > 1% indicates that a LEFT SHIFT is Present. Performed By: #### L 3410.9992, L100.0100, L501.2300, L500.4050, L501.5200 #### [facility] [address] [place], [address] Lymphocytes/100 WBC (Bld) 12.9 % Low 19-41 [facility] Comment on above: Performed By: #### L 3410.9992, L100.0100, L501.2300, L500.4050, L501.5200 #### [facility] [address] [place], [address] Nucleated RBC (Bld) [#/Vol] 0 10*3/uL Normal 0-5 [facility] Comment on above: Performed By: #### L 3410.9992, L100.0100, L501.2300, L500.4050, L501.5200 #### [facility] [address] [place], [address] RDW SD 43.6 fl Normal 35.1-43.9 [facility] Comment on above: Performed By: #### L 3410.9992, L100.0100, L501.2300, L500.4050, L501.5200 #### [facility] [address] [place], [address] Carbon dioxide, total [Moles /volume] in Central venous bloodOrdered By: Sawyer Delgado on 01-21-2025 CO2 [Moles/Vol] 23.0 mmol/L Normal 21.0-32.0 [facility] Comment on above: Performed By: #### L 3410.9992, L100.0100, L501.2300, L500.4050, L501.5200 #### [facility] [address] [place], [address] Chloride assayOrdered By: Christin Delgado on 01-21-2025 Chloride [Moles/Vol] 105 mmol/L Normal 98-108 [facility] Comment on above: Performed By: #### L 3410.9992, L100.0100, L501.2300, L500.4050, L501.5200 #### [facility] [address] [place], [address] Comprehensive Metabolic Prof ilon 01-21-2025 ALK PHOS 80 U/L Normal 40-129 [facility] Comment on above: Performed By: #### L 3410.9992, L100.0100, L501.2300, L500.4050, L501.5200 #### [facility] [address] [place], [address] BUN/CRE 14.9 RATIO Normal 10-20 [facility] Comment on above: Performed By: #### L 3410.9992, L100.0100, L501.2300, L500.4050, L501.5200 #### [facility] [address] [place], [address] ECRCL 120.48 ml/min Normal 50-250 [facility] Comment on above: Performed By: #### L 3410.9992, L100.0100, L501.2300, L500.4050, L501.5200 #### [facility] [address] [place], [address] GAP 11 Normal 5-15 [facility] Comment on above: Performed By: #### L 3410.9992, L100.0100, L501.2300, L500.4050, L501.5200 #### [facility] [address] [place], [address] Potassium [Moles/Vol] 4.3 mmol/L Normal 3.3-5.1 [facility] Comment on above: Performed By: #### L 3410.9992, L100.0100, L501.2300, L500.4050, L501.5200 #### [facility] [address] [place], [place], [id number] T PROT 7.6 g/dL Normal 5.9-8.4 [facility] Comment on above: Performed By: #### L 3410.9992, L100.0100, L501.2300, L500.4050, L501.5200 #### [facility] [address] [place], [address] Comprehensive Metabolic Prof ilOrdered By: Sawyer Delgado on 01-21-2025 AST [Catalytic activity/Vol] 30 U/L Normal <=37 [facility] Comment on above: Performed By: #### L 3410.9992, L100.0100, L501.2300, L500.4050, L501.5200 #### [facility] [address] [place], [address] Eosinophil percentageOrdered By: Sawyer Delgado on 01-21-2025 Eosinophils/100 WBC (Bld) 5.3 % High 0-5 [facility] Comment on above: Performed By: #### L 3410.9992, L100.0100, L501.2300, L500.4050, L501.5200 #### [facility] [address] [place], [address] Erythrocyte distribution wid th ratioOrdered By: Sawyer Delgado on 01-21-2025 Erythrocyte distribution width (RBC) [Ratio] 13.6 % Normal 11.6-14.6 [facility] Comment on above: Performed By: #### L 3410.9992, L100.0100, L501.2300, L500.4050, L501.5200 #### [facility] [address] [place], [address] Erythrocyte distribution wid th standard deviationOrdered By: Sawyer Delgado on 01-21-2025 Erythrocyte distribution width (RBC) [Ratio] 43.6 fl 35.1-43.9 [facility] Glomerular filtration rate ( GFR) estimation/1.73 sq m using serum, plasma, or whole bOrdered By: Sawyer Delgado on 01-21-2025 GFR/1.73 sq M.predicted among non-blacks MDRD (S/P/Bld) [Vol rate/Area] 99 mL/min/{1.73_m2} Normal >60 [facility] Comment on above: mL/min/1.73m2 CKD-EP I Creatinine Equation (2020) Result Comment: mL/m in/1.73m2 CKD-EPI Creatinine Equation (2020) Performed By: #### L 3410.9992, L100.0100, L501.2300, L500.4050, L501.5200 #### [facility] [address] [place], [place], [address] Hemoglobin measurementOrdere d By: Sawyer Delgado on 01-21-2025 Hemoglobin (Bld) [Mass/Vol] 15.2 g/dL Normal 13.0-16.5 [facility] Comment on above: Performed By: #### L 3410.9992, L100.0100, L501.2300, L500.4050, L501.5200 #### [facility] [address] [place], [address] Immature granulocytes/100 WB C Auto (Bld)Ordered By: Anthonytimmy Delgado on 01-21-2025 Immature granulocytes/100 WBC (Bld) 0.300 % 0.0-0.9 [facility] Comment on above: IG% - Immature Granu locytes (promyelocytes, myelocytes and metamyelocytes) > 1% indicates that a LEFT SHIFT is Present. MCV (mean corpuscular volume ) determinationOrdered By: Sawyer Delgado on 01-21-2025 MCV (RBC) [Entitic vol] 87.7 fL Normal 80-94 [facility] Comment on above: Performed By: #### L 3410.9992, L100.0100, L501.2300, L500.4050, L501.5200 #### [facility] [address] [place], [address] Magnesiumon 01-21-2025 Magnesium [Mass/Vol] 2.3 mg/dL High 1.5-2.2 [facility] Comment on above: Performed By: #### L 100.0100, L500.4050, L3410.9999 #### [facility] [address] [place], [address] Magnesium measurement (mass/ volume)Ordered By: Sawyer Delgado on 01-21-2025 Magnesium (Unsp spec) [Mass/Vol] 2.3 mg/dL High 1.5-2.2 [facility] Mean corpuscular hemoglobin (MCH) determinationOrdered By: Sawyer Delgado on 01-21-2025 MCH (RBC) [Entitic mass] 29.7 pg Normal 27.0-32.0 [facility] Comment on above: Performed By: #### L 3410.9992, L100.0100, L501.2300, L500.4050, L501.5200 #### [facility] [address] [place], [address] Mean corpuscular hemoglobin concentration (MCHC) determinationOrdered By: Sawyer Delgado on 01-21-2025 MCHC (RBC) [Mass/Vol] 33.9 g/dL Normal 32-36 [facility] Comment on above: Performed By: #### L 3410.9992, L100.0100, L501.2300, L500.4050, L501.5200 #### [facility] [address] [place], [place], [phone] (300) Mean platelet volume determi nationOrdered By: Sawyer Delgado on 01-21-2025 Platelet mean volume (Bld) [Entitic vol] 11.1 fL Normal 6.2-12.0 [facility] Comment on above: Performed By: #### L 3410.9992, L100.0100, L501.2300, L500.4050, L501.5200 #### [facility] [address] [place], [place], [phone] (562) Monocyte percentageOrdered B y: Sawyer Delgado on 01-21-2025 Monocytes/100 WBC (Bld) 8.2 % Normal 0-10 [facility] Comment on above: Performed By: #### L 3410.9992, L100.0100, L501.2300, L500.4050, L501.5200 #### [facility] [address] [place], [place], [phone] (013) Neutrophil percentageOrdered By: Sawyer Delgado on 01-21-2025 Neutrophils/100 WBC (Bld) 72.4 % High 47-70 [facility] Comment on above: Performed By: #### L 3410.9992, L100.0100, L501.2300, L500.4050, L501.5200 #### [facility] [address] [place], [place], [phone] ([phone] Nucleated red blood cell per centageOrdered By: Sawyer Delgado on 01-21-2025 Nucleated RBC/100 WBC (Bld) [Ratio] 0 % 0-5 [facility] Phosphoruson 01-21-2025 Phosphate [Mass/Vol] 2.6 mg/dL Low 2.7-4.5 [facility] Comment on above: Performed By: #### L 100.0100, L500.4050, L3410.9999 #### [facility] [address] [place], [address] Platelet countOrdered By: Christin Delgado on 01-21-2025 Platelets (Bld) [#/Vol] 206 10*3/uL Normal 150-450 [facility] Comment on above: Performed By: #### L 3410.9992, L100.0100, L501.2300, L500.4050, L501.5200 #### [facility] [address] [place], [address] Potassium measurement (mass/ volume)Ordered By: Sawyer Delgado on 01-21-2025 Potassium (Unsp spec) [Mass/Vol] 4.3 mmol/L 3.3-5.1 [facility] Serum creatinine measurement (mass/volume)Ordered By: Sawyer Delgado on 01-21-2025 Creatinine [Mass/Vol] 0.79 mg/dL Normal 0.70-1.20 [facility] Comment on above: Performed By: #### L 3410.9992, L100.0100, L501.2300, L500.4050, L501.5200 #### [facility] [address] [place], [address] Serum globulin measurementOr dered By: Sawyer Delgado on 01-21-2025 Globulin (S) [Mass/Vol] 3.1 g/dL Normal 2.2-4.2 [facility] Comment on above: Performed By: #### L 3410.9992, L100.0100, L501.2300, L500.4050, L501.5200 #### [facility] [address] [place], [address] Serum glucose measurement (m ass/volume)Ordered By: Sawyer Delgado on 01-21-2025 Glucose [Mass/Vol] 132 mg/dL High 70-99 [facility] Comment on above: Performed By: #### L 3410.9992, L100.0100, L501.2300, L500.4050, L501.5200 #### [facility] [address] [place], [place], [phone] Serum or plasma alanine arciniega otransferase (ALT) measurementOrdered By: Sawyer Delgado on 01-21-2025 ALT [Catalytic activity/Vol] 40 U/L Normal <=46 [facility] Comment on above: Performed By: #### L 3410.9992, L100.0100, L501.2300, L500.4050, L501.5200 #### [facility] [address] [place], [place], [phone] Serum or plasma albumin mary urement (mass/volume)Ordered By: Sawyer Delgado on 01-21-2025 Albumin [Mass/Vol] 4.5 g/dL Normal 3.4-4.8 [facility] Comment on above: Performed By: #### L 3410.9992, L100.0100, L501.2300, L500.4050, L501.5200 #### [facility] [address] [place], [place], [address] Serum or plasma albumin/glob ulin mass ratioOrdered By: Sawyer Delgado on 01-21-2025 Albumin/Globulin [Mass ratio] 1.5 {ratio} Normal 0.9-2.4 [facility] Comment on above: Performed By: #### L 3410.9992, L100.0100, L501.2300, L500.4050, L501.5200 #### [facility] [address] [place], [address] Serum or plasma alkaline josé miguel sphatase measurementOrdered By: Sawyer Delgado on 01-21-2025 ALP [Catalytic activity/Vol] 80 U/L 40-129 [facility] Serum or plasma calcium mary urement (mass/volume)Ordered By: Sawyer Delgado on 01-21-2025 Calcium [Mass/Vol] 9.2 mg/dL Normal 7.6-11.0 [facility] Comment on above: Performed By: #### L 3410.9992, L100.0100, L501.2300, L500.4050, L501.5200 #### [facility] [address] [facility] [place], [place], [address] Serum or plasma urea nitroge n measurement (mass/volume)Ordered By: Sawyer Delgado on 01-21-2025 Urea nitrogen [Mass/Vol] 12 mg/dL Normal 4-19 [facility] Comment on above: Performed By: #### L 3410.9992, L100.0100, L501.2300, L500.4050, L501.5200 #### [facility] [address] [place], [place], [id number] Sodium levelOrdered By: Anthony Delgado on 01-21-2025 Sodium [Moles/Vol] 139 mmol/L Normal 133-145 [facility] Comment on above: Performed By: #### L 3410.9992, L100.0100, L501.2300, L500.4050, L501.5200 #### [facility] [address] [place], [place], [address] Total proteinOrdered By: Glen Delgado on 01-21-2025 Protein [Mass/Vol] 7.6 g/dL 5.9-8.4 [facility] White blood cell (WBC) count Ordered By: Sawyer Delgado on 01-21-2025 WBC (Bld) [#/Vol] 6.8 10*3/uL Normal 4.4-11.0 [facility] Comment on above: Performed By: #### L 3410.9992, L100.0100, L501.2300, L500.4050, L501.5200 #### [facility] [address] [place], [address] Pulmonary Visit Reporton Pulmonary Visit Report [facility] [place] 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 Normal [facility] Oncology Visit Reporton 10-20 Oncology Visit Report [facility] [address] [place] [address] OFFICE VISIT Date of Service: 11/05/24 1134 MR#: [id number] Acct: [id number] Name: FREDERIC OVALLES Rep #: [id number] : 1960 From: Sawyer Delgado MD Age/Sex: 64/M Location: [facility] Status: Signed HPI Subjective Date of Service [...] neoplasm. The flow cytometry analysis report from [employer] is reviewable in the patient???s EMR. BONE [...] and megakaryocytes. ADDENDUM FISH BCR/ABL1 REPORT FROM [employer] INTERPRETATION: BCR/ABL gene rearrangement is detected. 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 Bosutinib August 10, 2022-ongoing MMR (January 2023) Interval History Painful kidney stone December 2023, recovered [facility] Medical History Chronic myeloid leukemia Low back [...] Nicotine dependence Atherosclerosis of coronary artery of [place] heart without angina pectoris Obesity (BMI 30.0-34.9) [...] History (Re (more content not included)... Normal [facility] Misc.on 10-27-2024 [facility]isc. COMMENT Normal . [facility] Comment on above: Order Comment: [id number] 1 BCR NA HEP WB RTEMP Result Comment: Test Ordered: [id number] BCR-ABL1, CML/ALL, PCR, Quant e13a2 (b2a2) transcript [...] Reference Range: . Technical Component performed at [facility] Professional Component performed by: Yaquelin Mckeon, PhD, [facility] Director, Molecular Oncology [facility] [place] [id number], [address] [facility] [address] Background Comment LUU Reference Range: . This [...] developed and its performance characteristics determined by [facility]. It has not been cleared or [...] quantitation of BCR-ABL mRNA. Blood. 2010 25; 116(22):b232-668. Performed at: [facility] - [facility] [address] [facility] [place], [place] [id number] Prosthodontist: Sherri Davey [facility], Phone: [phone] Performed at: - [facility] [address] [facility], [place] [id number] Prosthodontist: Sherri Davey [facility], Phone: [phone] Performed at: - [facility] [address] [id number] Prosthodontist: Michael Ragsdale PhD, Phone: [phone] Performed By: #### L 3410.9998, L100.0100, L504.2610, L500.4050 #### [facility] [address] [place], [address] Absolute lymphocyte countOrd ered By: Sawyer Delgado on 10-22-2024 Lymphocytes Auto (Unsp spec) [#/Vol] 1.30 10*3/uL 0.83-4.51 [facility] Absolute neutrophil countOrd ered By: Sawyer Delgado on 10-22-2024 Neutrophils (Bld) [#/Vol] 5.1 10*3/uL 2.0-7.7 [facility] Anion gap in Serum or Plasma Ordered By: Sawyer Delgado on 10-22-2024 Anion gap [Moles/Vol] 11 mmol/L 5-15 [facility] Automated blood erythrocyte countOrdered By: Sawyer Delgado on 10-22-2024 RBC (Bld) [#/Vol] 5.16 10*6/uL Normal 4.6-6.2 [facility] Comment on above: Performed By: #### L 3410.9998, L100.0100, L504.2610, L500.4050 #### [facility] [address] [place], [place], [id number] Automated blood hematocrit ( percentage)Ordered By: Sawyer Delgado on 10-22-2024 Hematocrit (Bld) [Volume fraction] 44.9 % Normal 40-54 [facility] Comment on above: Performed By: #### L 3410.9998, L100.0100, L504.2610, L500.4050 #### [facility] [address] [place], [address] Automated lymphocyte count a s percentage of total leukocytesOrdered By: Sawyer Delgado on 10-22-2024 Lymphocytes/100 WBC Auto (Unsp spec) 17.3 % Low 19-41 [facility] BUN/creatinine ratioOrdered By: [facility] on 10-22-2024 Urea nitrogen/Creatinine [Mass ratio] 15.1 mg/mg 10-20 [facility] Basophil percentageOrdered B y: Sawyer Delgado on 10-22-2024 Basophils/100 WBC (Bld) 1.1 % High 0-1 [facility] Comment on above: Performed By: #### L 3410.9998, L100.0100, L504.2610, L500.4050 #### [facility] [address] [place], [address] Bilirubin, totalOrdered By: Sawyer Delgado on 10-22-2024 Bilirubin [Mass/Vol] 0.33 mg/dL Normal 0.00-1.30 [facility] Comment on above: Performed By: #### L 3410.9998, L100.0100, L504.2610, L500.4050 #### [facility] [address] [place], [address] CBC W/Diff, Automatedon 04- Absolute Lymph 1.30 X10 3/uL Normal 0.83-4.51 [facility] Comment on above: Performed By: #### L 3410.9998, L100.0100, L504.2610, L500.4050 #### [facility] [address] [place], [address] Absolute Neut 5.1 X10 3/uL Normal 2.0-7.7 [facility] Comment on above: Performed By: #### L 3410.9998, L100.0100, L504.2610, L500.4050 #### [facility] [address] [place], [address] IG% 0.300 Normal 0.0-0.9 [facility] Comment on above: Result Comment: IG% - Immature Granulocytes (promyelocytes, myelocytes and metamyelocytes) > 1% indicates that a LEFT SHIFT is Present. Performed By: #### L 3410.9998, L100.0100, L504.2610, L500.4050 #### [facility] [address] [place], [address] Lymphocytes/100 WBC (Bld) 17.3 % Low 19-41 [facility] Comment on above: Performed By: #### L 3410.9998, L100.0100, L504.2610, L500.4050 #### [facility] [address] [place], [address] Nucleated RBC (Bld) [#/Vol] 0 10*3/uL Normal 0-5 [facility] Comment on above: Performed By: #### L 3410.9998, L100.0100, L504.2610, L500.4050 #### [facility] [address] [place], [address] RDW SD 42.6 fl Normal 35.1-43.9 [facility] Comment on above: Performed By: #### L 3410.9998, L100.0100, L504.2610, L500.4050 #### [facility] [address] [place], [address] Carbon dioxide, total [Moles /volume] in Central venous bloodOrdered By: Sawyer Delgado on 10-22-2024 CO2 [Moles/Vol] 24.1 mmol/L Normal 21.0-32.0 [facility] Comment on above: Performed By: #### L 3410.9998, L100.0100, L504.2610, L500.4050 #### [facility] [address] [place], [address] Chloride assayOrdered By: Christin Delgado on 10-22-2024 Chloride [Moles/Vol] 102 mmol/L Normal 98-108 [facility] Comment on above: Performed By: #### L 3410.9998, L100.0100, L504.2610, L500.4050 #### [facility] [address] [place], [address] Comprehensive Metabolic Prof ilon 10-22-2024 ALK PHOS 75 U/L Normal 40-129 [facility] Comment on above: Performed By: #### L 3410.9998, L100.0100, L504.2610, L500.4050 #### [facility] [address] [place], [address] BUN/CRE 15.1 RATIO Normal 10-20 [facility] Comment on above: Performed By: #### L 3410.9998, L100.0100, L504.2610, L500.4050 #### [facility] [address] [place], [address] ECRCL 102.76 ml/min Normal 50-250 [facility] Comment on above: Performed By: #### L 3410.9998, L100.0100, L504.2610, L500.4050 #### [facility] [address] [place], [address] GAP 11 Normal 5-15 [facility] Comment on above: Performed By: #### L 3410.9998, L100.0100, L504.2610, L500.4050 #### [facility] [address] [place], [address] Potassium [Moles/Vol] 4.4 mmol/L Normal 3.3-5.1 [facility] Comment on above: Performed By: #### L 3410.9998, L100.0100, L504.2610, L500.4050 #### [facility] [address] [place], [address] T PROT 7.5 g/dL Normal 5.9-8.4 [facility] Comment on above: Performed By: #### L 3410.9998, L100.0100, L504.2610, L500.4050 #### [facility] [address] [place], [address] Comprehensive Metabolic Prof ilOrdered By: Sawyer Delgado on 10-22-2024 AST [Catalytic activity/Vol] 26 U/L Normal <=37 [facility] Comment on above: Performed By: #### L 3410.9998, L100.0100, L504.2610, L500.4050 #### [facility] [address] [place], [address] Eosinophil percentageOrdered By: Sawyer Delgado on 10-22-2024 Eosinophils/100 WBC (Bld) 4.6 % Normal 0-5 [facility] Comment on above: Performed By: #### L 3410.9998, L100.0100, L504.2610, L500.4050 #### [facility] [address] [place], [address] Erythrocyte distribution wid th ratioOrdered By: Sawyer Delgado on 10-22-2024 Erythrocyte distribution width (RBC) [Ratio] 13.4 % Normal 11.6-14.6 [facility] Comment on above: Performed By: #### L 3410.9998, L100.0100, L504.2610, L500.4050 #### [facility] [address] [place], [address] Erythrocyte distribution wid th standard deviationOrdered By: Sawyer Delgado on 10-22-2024 Erythrocyte distribution width (RBC) [Ratio] 42.6 fl 35.1-43.9 [facility] Glomerular filtration rate ( GFR) estimation/1.73 sq m using serum, plasma, or whole bOrdered By: Sawyer Delgado on 10-22-2024 GFR/1.73 sq M.predicted among non-blacks MDRD (S/P/Bld) [Vol rate/Area] 93 mL/min/{1.73_m2} Normal >60 [facility] Comment on above: mL/min/1.73m2 CKD-EP I Creatinine Equation (2020) Result Comment: mL/m in/1.73m2 CKD-EPI Creatinine Equation (2020) Performed By: #### L 3410.9998, L100.0100, L504.2610, L500.4050 #### [facility] [address] [facility] [place], [address] Hemoglobin measurementOrdere d By: Sawyer Delgado on 10-22-2024 Hemoglobin (Bld) [Mass/Vol] 15.2 g/dL Normal 13.0-16.5 [facility] Comment on above: Performed By: #### L 3410.9998, L100.0100, L504.2610, L500.4050 #### [facility] [address] [facility] [place], [place], [id number] Immature granulocytes/100 WB C Auto (Bld)Ordered By: Sawyer Delgado on 10-22-2024 Immature granulocytes/100 WBC (Bld) 0.300 % 0.0-0.9 [facility] Comment on above: IG% - Immature Granu locytes (promyelocytes, myelocytes and metamyelocytes) > 1% indicates that a LEFT SHIFT is Present. LDHon 10-22-2024 LDH 191 U/L Normal 87-241 [facility] Comment on above: Order Comment: 1 Result Comment: Hemo lysis present, Results??could be affected. ?? Performed By: #### L 3410.9998, L100.0100, L504.2610, L500.4050 #### [facility] [address] [place], [place], [id number] Lactate dehydrogenase (LDH) measurementOrdered By: Sawyer Delgado on 10-22-2024 LDH [Catalytic activity/Vol] 191 U/L 87-241 [facility] Comment on above: Hemolysis present, R esults could be affected. MCV (mean corpuscular volume ) determinationOrdered By: Sawyer Delgado on 10-22-2024 MCV (RBC) [Entitic vol] 87.0 fL Normal 80-94 [facility] Comment on above: Performed By: #### L 3410.9998, L100.0100, L504.2610, L500.4050 #### [facility] [address] [place], [place], [id number] Mean corpuscular hemoglobin (MCH) determinationOrdered By: Sawyer Delgado on 10-22-2024 MCH (RBC) [Entitic mass] 29.5 pg Normal 27.0-32.0 [facility] Comment on above: Performed By: #### L 3410.9998, L100.0100, L504.2610, L500.4050 #### [facility] [address] [place], [place], [address] Mean corpuscular hemoglobin concentration (MCHC) determinationOrdered By: Sawyer Delgado on 10-22-2024 MCHC (RBC) [Mass/Vol] 33.9 g/dL Normal 32-36 [facility] Comment on above: Performed By: #### L 3410.9998, L100.0100, L504.2610, L500.4050 #### [facility] [address] [place], [place], [id number] Mean platelet volume determi nationOrdered By: Sawyer Delgado on 10-22-2024 Platelet mean volume (Bld) [Entitic vol] 10.4 fL Normal 6.2-12.0 [facility] Comment on above: Performed By: #### L 3410.9998, L100.0100, L504.2610, L500.4050 #### [facility] [address] [place], [address] Monocyte percentageOrdered B y: Sawyer Delgado on 10-22-2024 Monocytes/100 WBC (Bld) 9.2 % Normal 0-10 [facility] Comment on above: Performed By: #### L 3410.9998, L100.0100, L504.2610, L500.4050 #### [facility] [address] [place], [address] Neutrophil percentageOrdered By: Sawyer Delgado on 10-22-2024 Neutrophils/100 WBC (Bld) 67.5 % Normal 47-70 [facility] Comment on above: Performed By: #### L 3410.9998, L100.0100, L504.2610, L500.4050 #### [facility] [address] [place], [address] Nucleated red blood cell per centageOrdered By: Sawyer Delgado on 10-22-2024 Nucleated RBC/100 WBC (Bld) [Ratio] 0 % 0-5 [facility] Platelet countOrdered By: Christin Delgado on 10-22-2024 Platelets (Bld) [#/Vol] 214 10*3/uL Normal 150-450 [facility] Comment on above: Performed By: #### L 3410.9998, L100.0100, L504.2610, L500.4050 #### [facility] [address] [place], [address] Potassium measurement (mass/ volume)Ordered By: Sawyer Delgado on 10-22-2024 Potassium (Unsp spec) [Mass/Vol] 4.4 mmol/L 3.3-5.1 [facility] Serum creatinine measurement (mass/volume)Ordered By: Sawyer Delgado on 10-22-2024 Creatinine [Mass/Vol] 0.92 mg/dL Normal 0.70-1.20 [facility] Comment on above: Performed By: #### L 3410.9998, L100.0100, L504.2610, L500.4050 #### [facility] [address] [place], [address] Serum globulin measurementOr dered By: Sawyer Delgado on 10-22-2024 Globulin (S) [Mass/Vol] 3.0 g/dL Normal 2.2-4.2 [facility] Comment on above: Performed By: #### L 3410.9998, L100.0100, L504.2610, L500.4050 #### [facility] [address] [place], [address] Serum glucose measurement (m ass/volume)Ordered By: Sawyer Delgado on 10-22-2024 Glucose [Mass/Vol] 126 mg/dL High 70-99 [facility] Comment on above: Performed By: #### L 3410.9998, L100.0100, L504.2610, L500.4050 #### [facility] [address] [facility] [place], [address] Serum or plasma alanine arciniega otransferase (ALT) measurementOrdered By: Sawyer Delgado on 10-22-2024 ALT [Catalytic activity/Vol] 26 U/L Normal <=46 [facility] Comment on above: Performed By: #### L 3410.9998, L100.0100, L504.2610, L500.4050 #### [facility] [address] [place], [address] Serum or plasma albumin mary urement (mass/volume)Ordered By: Sawyer Delgado on 10-22-2024 Albumin [Mass/Vol] 4.5 g/dL Normal 3.4-4.8 [facility] Comment on above: Performed By: #### L 3410.9998, L100.0100, L504.2610, L500.4050 #### [facility] [address] [place], [address] Serum or plasma albumin/glob ulin mass ratioOrdered By: Sawyer Delgado on 10-22-2024 Albumin/Globulin [Mass ratio] 1.5 {ratio} Normal 0.9-2.4 [facility] Comment on above: Performed By: #### L 3410.9998, L100.0100, L504.2610, L500.4050 #### [facility] [address] [place], [place], [id number] Serum or plasma alkaline josé miguel sphatase measurementOrdered By: Sawyer Delgado on 10-22-2024 ALP [Catalytic activity/Vol] 75 U/L 40-129 [facility] Serum or plasma calcium mary urement (mass/volume)Ordered By: Sawyer Delgado on 10-22-2024 Calcium [Mass/Vol] 9.3 mg/dL Normal 7.6-11.0 [facility] Comment on above: Performed By: #### L 3410.9998, L100.0100, L504.2610, L500.4050 #### [facility] [address] [place], [place], [address] Serum or plasma urea nitroge n measurement (mass/volume)Ordered By: Sawyer Delgado on 10-22-2024 Urea nitrogen [Mass/Vol] 14 mg/dL Normal 4-19 [facility] Comment on above: Performed By: #### L 3410.9998, L100.0100, L504.2610, L500.4050 #### [facility] [address] [place], [address] Sodium levelOrdered By: Anthony Delgado on 10-22-2024 Sodium [Moles/Vol] 137 mmol/L Normal 133-145 [facility] Comment on above: Performed By: #### L 3410.9998, L100.0100, L504.2610, L500.4050 #### [facility] [address] [place], [address] Total proteinOrdered By: Glen Delgado on 10-22-2024 Protein [Mass/Vol] 7.5 g/dL 5.9-8.4 [facility] White blood cell (WBC) count Ordered By: Sawyer Delgado on 10-22-2024 WBC (Bld) [#/Vol] 7.5 10*3/uL Normal 4.4-11.0 [facility] Comment on above: Performed By: #### L 3410.9998, L100.0100, L504.2610, L500.4050 #### [facility] [address] [place], [address] Oncology Visit Reporton 07-22 Oncology Visit Report [facility] [address] [place] [address] OFFICE VISIT Date of Service: 08/03/24 1023 MR#: [id number] Acct: [id number] Name: FREDERIC OVALLES Rep #: [id number] : 1960 From: Sawyer Delgado MD Age/Sex: 64/M Location: [facility] Status: Signed HPI Subjective Date of Service [...] and megakaryocytes. ADDENDUM FISH BCR/ABL1 REPORT FROM [facility] INTERPRETATION: BCR/ABL gene rearrangement is detected. 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 Bosutinib August 10, 2022-ongoing MMR (January 2023) Interval History Painful kidney stone December 2023, recovered [facility] Medical History Chronic myeloid leukemia Low back [...] Nicotine dependence Atherosclerosis of coronary artery of [place] heart without angina pectoris Obesity (BMI 30.0-34.9) [...] History (Re (more content not included)... Normal [facility] BCR/ABL BLOOD OR BONE MARROW ,T(9;22),QUANTon 07-28-2024 Receiving Status Accessioned in Lab Normal [facility] Comment on above: Performed By: #### B CR/ABL BLOOD OR BONE MARROW,T(9;22),QUANT #### U [facility] (DEFAULT) [address] [place] [address] CBC AND ELECTRONIC DIFFon Basophils (Bld) [#/Vol] 0.08 10*3/uL 0.00 - 0.09 K/uL [facility] Basophils/100 WBC (Bld) 1.1 % O MOORE [facility] Differential cell count method Nom (Bld) Electronic Differential [facility] Eosinophils (Bld) [#/Vol] 0.37 10*3/uL 0.00 - 0.48 K/uL [facility] Eosinophils/100 WBC (Bld) 5.0 % [facility] Erythrocyte distribution width (RBC) [Ratio] 13.3 % 10.9 - 14.3 % [facility] Hematocrit (Bld) [Volume fraction] 45.3 % 39.6 - 48.8 % [facility] Hemoglobin (Bld) [Mass/Vol] 15.0 g/dL 13.4 - 16.8 g/dL [facility] Immature granulocytes (Bld) [#/Vol] K/uL NINF - 0.07 K/uL [facility] Immature granulocytes/100 WBC (Bld) 0.3 % [facility] Lymphocytes (Bld) [#/Vol] 1.58 10*3/uL 0.83 - 3.57 K/uL [facility] Lymphocytes/100 WBC (Bld) 21.6 % [facility] MCH (RBC) [Entitic mass] 29.0 pg 26.1 - 33.3 pg [facility] MCHC (RBC) [Mass/Vol] 33.1 g/dL 31.9 - 36.5 g/dL [facility] MCV (RBC) [Entitic vol] 87.5 fL 79.0 - 94.5 fL [facility] Monocytes (Bld) [#/Vol] 0.74 10*3/uL 0.24 - 0.93 K/uL [facility] Monocytes/100 WBC (Bld) 10.1 % [facility] Neutrophils (Bld) [#/Vol] 4.54 10*3/uL 1.57 - 6.19 K/uL [facility] Nucleated RBC/100 WBC (Bld) [Ratio] 0.0 % [facility] Platelet mean volume (Bld) [Entitic vol] 10.5 fL 8.7 - 12.3 fL [facility] Platelets (Bld) [#/Vol] 232 10*3/uL 146 - 337 K/uL [facility] RBC (Bld) [#/Vol] 5.18 10*6/uL [facility] Segmented neutrophils/100 WBC (Bld) 61.9 % [facility] WBC (Bld) [#/Vol] 7.33 10*3/uL 3.73 - 10.10 K/uL [facility] Basophils (Bld) [#/Vol] 0.08 10*3/uL Normal 0.00-0.09 [facility] Comment on above: Performed By: #### L [id number] #### [facility] (DEFAULT) [address] [place] [address] Basophils/100 WBC (Bld) 1.1 % Normal O [facility] Comment on above: Performed By: #### L [id number] #### [facility] (DEFAULT) [address] [place] [address] DIFF STATUS Electronic Differential Normal [facility] Comment on above: Performed By: #### L [id number] #### [facility] (DEFAULT) [address] [place] [address] Eosinophils (Bld) [#/Vol] 0.37 10*3/uL Normal 0.00-0.48 [facility] Comment on above: Performed By: #### L [id number] #### [facility] (DEFAULT) [address] [place] [address] Eosinophils/100 WBC (Bld) 5.0 % Normal [facility] Comment on above: Performed By: #### L [id number] #### [facility] (DEFAULT) [address] [address] Hematocrit (Bld) [Volume fraction] 45.3 % Normal 39.6-48.8 [facility] Comment on above: Performed By: #### L [id number] #### [facility] (DEFAULT) [address] [place] [address] Hemoglobin (Bld) [Mass/Vol] 15.0 g/dL Normal 13.4-16.8 [facility] Comment on above: Performed By: #### L [id number] #### [facility] (DEFAULT) [address] [address] Immature Grans % 0.3 % Normal [facility] Comment on above: Performed By: #### L [id number] #### [facility] (DEFAULT) [address] [address] Immature Grans Absolute < Normal <=0.07 [facility] Comment on above: Performed By: #### L [id number] #### [facility] (DEFAULT) [address] [address] Lymphocytes (Bld) [#/Vol] 1.58 10*3/uL Normal 0.83-3.57 [facility] Comment on above: Performed By: #### L [id number] #### [facility] (DEFAULT) [address] [address] Lymphocytes/100 WBC (Bld) 21.6 % Normal [facility] Comment on above: Performed By: #### L [id number] #### [facility] (DEFAULT) [address] [address] MCV (RBC) [Entitic vol] 87.5 fL Normal 79.0-94.5 O [facility] Comment on above: Performed By: #### L [id number] #### [facility] (DEFAULT) [address] [address] Mean Cell Hgb 29.0 pg Normal 26.1-33.3 [facility] Comment on above: Performed By: #### L [id number] #### [facility] (DEFAULT) [address] [address] Mean Cell Hgb Conc 33.1 g/dL Normal 31.9-36.5 [facility] Comment on above: Performed By: #### L [id number] #### [facility] (DEFAULT) [address] [place] [address] Monocytes (Bld) [#/Vol] 0.74 10*3/uL Normal 0.24-0.93 [facility] Comment on above: Performed By: #### L [id number] #### U [facility] (DEFAULT) [address] [place] [address] Monocytes/100 WBC (Bld) 10.1 % Normal O [facility] Comment on above: Performed By: #### L [id number] #### [facility] (DEFAULT) [address] [place] [address] Nucleated RBC 0.0 /100 WBC Normal <=0.2 [facility] Comment on above: Performed By: #### L [id number] #### [facility] (DEFAULT) [address] [place] [address] Platelet mean volume (Bld) [Entitic vol] 10.5 fL Normal 8.7-12.3 [facility] Comment on above: Performed By: #### L [id number] #### [facility] (DEFAULT) [address] [place] [address] Platelets (Bld) [#/Vol] 232 10*3/uL Normal 146-337 [facility] Comment on above: Performed By: #### L [id number] #### [facility] (DEFAULT) [address] [place] [address] RBC (Bld) [#/Vol] 5.18 10*6/uL Normal 4.38-5.83 [facility] Comment on above: Performed By: #### L [id number] #### [facility] (DEFAULT) [address] [place] [address] RBC Distribution 13.3 % Normal 10.9-14.3 [facility] Comment on above: Performed By: #### L [id number] #### [facility] (DEFAULT) [address] [place] [address] Segs + Bands Auto 61.9 % Normal [facility] Comment on above: Performed By: #### L [id number] #### [facility] (DEFAULT) [address] [place] [address] Segs + Bands,Absolute Auto 4.54 K/uL Normal 1.57-6.19 [facility] Comment on above: Performed By: #### L [id number] #### [facility] (DEFAULT) [address] [address] WBC (Bld) [#/Vol] 7.33 10*3/uL Normal 3.73-10.10 [facility] Comment on above: Performed By: #### L [id number] #### [facility] (DEFAULT) [address] [address] COMPREHENSIVE METABOLIC PANE Cezar 07-28-2024 Albumin [Mass/Vol] 4.7 g/dL 3.5 - 5.0 g/dL [facility] ALP [Catalytic activity/Vol] 65 U/L 32 - 126 U/L [facility] ALT [Catalytic activity/Vol] 23 U/L 10 - 52 U/L [facility] Anion gap [Moles/Vol] 9 mmol/L 7 - 17 mmol/L [facility] AST [Catalytic activity/Vol] 21 U/L 10 - 39 U/L [facility] Bilirubin [Mass/Vol] 0.4 mg/dL NINF - 1.5 mg/dL [facility] Calcium [Mass/Vol] 9.1 mg/dL 8.6 - 10. 5 mg/dL [facility] Chloride [Moles/Vol] 104 mmol/L 98 - 10 8 mmol/L [facility] CO2 [Moles/Vol] 28 mmol/L 21 - 31 mmol/L [facility] Creatinine [Mass/Vol] 0.97 mg/dL 0.70 - 1.30 mg/dL [facility] eGFR, CKD-EPI, Male 87 - PINF [facility] Comment on above: Reported eGFR is bas ed on the CKD-EPI 2020 equation using creatinine, age, and sex. Glucose [Mass/Vol] 117 mg/dL High 70 - 99 mg/dL [facility] Interpretation and review of laboratory results Abnormal [facility] Osmolality Calc [Osmolality] 287 [facility] Potassium [Moles/Vol] 3.9 mmol/L 3.5 - 5.0 mmol/L [facility] Protein [Mass/Vol] 7.4 g/dL 6.4 - 8.3 g/dL [facility] Sodium [Moles/Vol] 137 mmol/L 135 - 145 mmol/L [facility] Urea nitrogen [Mass/Vol] 9 mg/dL 7 - 25 mg/dL [facility] Urea nitrogen/Creatinine [Mass ratio] 9 mg/mg [facility] Albumin [Mass/Vol] 4.7 g/dL Normal 3.5-5.0 [facility] Comment on above: Performed By: #### C MPN #### [facility] (DEFAULT) [address] [place] [address]709 ALP [Catalytic activity/Vol] 65 U/L Normal 32-126 [facility] Comment on above: Performed By: #### C MPN #### [facility] (DEFAULT) [address] [place] [address] 74258 ALT [Catalytic activity/Vol] 23 U/L Normal 10-52 [facility] Comment on above: Performed By: #### C MPN #### [facility] (DEFAULT) [address] [place] [address] 00270 Anion gap [Moles/Vol] 9 mmol/L Normal 7-[address] [facility] Comment on above: Performed By: #### C MPN #### [facility] (DEFAULT) [address] [place] [address] 05065 AST [Catalytic activity/Vol] 21 U/L Normal 10-39 [facility] Comment on above: Performed By: #### C MPN #### [facility] (DEFAULT) [address] [place] [address] 91487 Bilirubin [Mass/Vol] 0.4 mg/dL Normal <1.5 [facility] Comment on above: Performed By: #### C MPN #### [facility] (DEFAULT) [address] [place] [address] 28648 Calcium [Mass/Vol] 9.1 mg/dL Normal 8.6-10.5 [facility] Comment on above: Performed By: #### C MPN #### [facility] (DEFAULT) [address] [place] [address] 80223 Chloride [Moles/Vol] 104 mmol/L Normal 98-108 [facility] Comment on above: Performed By: #### C MPN #### [facility] (DEFAULT) [address] [address] CO2 [Moles/Vol] 28 mmol/L Normal 21-31 [facility] Comment on above: Performed By: #### C MPN #### [facility] (DEFAULT) [address] [place] [address] 71611 Creatinine [Mass/Vol] 0.97 mg/dL Normal 0.70-1.[address] [facility] Comment on above: Performed By: #### C MPN #### [facility] (DEFAULT) [address] [place] [address] 79499 GFR/1.73 sq M.predicted among non-blacks MDRD (S/P/Bld) [Vol rate/Area] 87 mL/min/{1.73_m2} Normal >=60 [facility] Comment on above: Result Comment: Repo rted eGFR is based on the CKD-EPI 2020 equation using creatinine, age, and sex. Performed By: #### C MPN #### [facility] (DEFAULT) [address] [place] [address] 01391 Glucose [Mass/Vol] 117 mg/dL High 70-99 [facility] Comment on above: Performed By: #### C MPN #### [facility] (DEFAULT) [address] [place] [address] 24431 Osmolality [Osmolality] 287 mosm/kg Normal 278-305 [facility] Comment on above: Performed By: #### C MPN #### [facility] (DEFAULT) [address] [place] [address] 80088 Potassium [Moles/Vol] 3.9 mmol/L Normal 3.5-5.[address] [facility] Comment on above: Performed By: #### C MPN #### [facility] (DEFAULT) [address] [place] [address] 26761 Protein [Mass/Vol] 7.4 g/dL Normal 6.4-8.3 [facility] Comment on above: Performed By: #### C MPN #### [facility] (DEFAULT) [address] [place] [address] 62543 Sodium [Moles/Vol] 137 mmol/L Normal 135-145 [facility] Comment on above: Performed By: #### C MPN #### [facility] (DEFAULT) [address] [place] [address] 16427 Urea nitrogen [Mass/Vol] 9 mg/dL Normal 7-25 [facility] Comment on above: Performed By: #### C MPN #### [facility] (DEFAULT) [address] [place] [address] 38423 Urea nitrogen/Creatinine [Mass ratio] 9 mg/mg Normal [facility] Comment on above: Performed By: #### C MPN #### [facility] (DEFAULT) [address] [place] [address] 64977 L3410.9999on 07-27-2024 [facility] Misc. COMMENT Normal . [facility] Comment on above: Order Comment: LAB T OP ACDA [place] RF [id number] BCR/ABL Result Comment: Test Ordered: [id number] BCR-ABL1, CML/ALL, PCR, Quant e13a2 (b2a2) transcript [...] detected by this assay. Director Review Comment Reference Range: . Technical Component performed at [facility] Professional Component performed by: Keldeal Yaquelin Mckeon, PhD, [facility] Director, Molecular Oncology [address] [place] [address] [place] [address] Background Comment LUU Reference Range: [...] developed and its performance characteristics determined by [employer]. It has not been cleared or approved by the Food and Drug Administration. Performed at: [facility] [address] [facility], [facility], [place] [id number] Prosthodontist: Sherri Davey [facility], Phone: [phone] Performed at: - [facility] [address] [facility], [place] [id number] Prosthodontist: Sherri Davey [facility], Phone: [phone] Performed at: [address] [id number] Prosthodontist: Michael Ragsdale PhD, Phone: [phone] Performed By: #### L 100.0100, L500.4050, L3410.9999 #### [facility] [address] [place], [address] CBC W/Diff, Automatedon 12-3 0-2023 Absolute Lymph 1.75 X10 3/uL Normal 0.83-4.51 [facility] Comment on above: Performed By: #### L 100.0100, L500.4050, L3410.9999 #### [facility] [address] [place], [address] Absolute Neut 4.9 X10 3/uL Normal 2.0-7.7 [facility] Comment on above: Performed By: #### L 100.0100, L500.4050, L3410.9999 #### [facility] [address] [place], [address] Basophils/100 WBC (Bld) 0.7 % Normal 0-1 [facility] Comment on above: Performed By: #### L 100.0100, L500.4050, L3410.9999 #### [facility] [address] [place], [address] Eosinophils/100 WBC (Bld) 5.6 % High 0-5 [facility] Comment on above: Performed By: #### L 100.0100, L500.4050, L3410.9999 #### [facility] [address] [place], [address] Erythrocyte distribution width (RBC) [Ratio] 13.4 % Normal 11.6-14.6 [facility] Comment on above: Performed By: #### L 100.0100, L500.4050, L3410.9999 #### [facility] [address] [place], [address] Hematocrit (Bld) [Volume fraction] 44.7 % Normal 40-54 [facility] Comment on above: Performed By: #### L 100.0100, L500.4050, L3410.9999 #### [facility] [address] [place], [address] Hemoglobin (Bld) [Mass/Vol] 15.2 g/dL Normal 13.0-16.5 [facility] Comment on above: Performed By: #### L 100.0100, L500.4050, L3410.9999 #### [facility] [address] [place], [address] IG% 0.200 Normal 0.0-0.9 [facility] Comment on above: Result Comment: IG% - Immature Granulocytes (promyelocytes, myelocytes and metamyelocytes) > 1% indicates that a LEFT SHIFT is Present. Performed By: #### L 100.0100, L500.4050, L3410.9999 #### [facility] [address] [place], [address] Lymphocytes/100 WBC (Bld) 21.6 % Normal 19-41 [facility] Comment on above: Performed By: #### L 100.0100, L500.4050, L3410.9999 #### [facility] [address] [place], [address] MCH (RBC) [Entitic mass] 29.6 pg Normal 27.0-32.0 [facility] Comment on above: Performed By: #### L 100.0100, L500.4050, L3410.9999 #### [facility] [address] [place], [address] MCHC (RBC) [Mass/Vol] 34.0 g/dL Normal 32-36 [facility] Comment on above: Performed By: #### L 100.0100, L500.4050, L3410.9999 #### [facility] [address] [place], [address] MCV (RBC) [Entitic vol] 87.0 fL Normal 80-94 [facility] Comment on above: Performed By: #### L 100.0100, L500.4050, L3410.9999 #### [facility] [address] [place], [address] Monocytes/100 WBC (Bld) 11.1 % High 0-10 [facility] Comment on above: Performed By: #### L 100.0100, L500.4050, L3410.9999 #### [facility] [address] [place], [address] Neutrophils/100 WBC (Bld) 60.8 % Normal 47-70 [facility] Comment on above: Performed By: #### L 100.0100, L500.4050, L3410.9999 #### [facility] [address] [place], [address] Nucleated RBC (Bld) [#/Vol] 0 10*3/uL Normal 0-5 [facility] Comment on above: Performed By: #### L 100.0100, L500.4050, L3410.9999 #### [facility] [address] [place], [address] Platelet mean volume (Bld) [Entitic vol] 10.6 fL Normal 6.2-12.0 [facility] Comment on above: Performed By: #### L 100.0100, L500.4050, L3410.9999 #### [facility] [address] [place], [address] Platelets (Bld) [#/Vol] 233 10*3/uL Normal 150-450 [facility] Comment on above: Performed By: #### L 100.0100, L500.4050, L3410.9999 #### [facility] [address] [place], [address] RBC (Bld) [#/Vol] 5.14 10*6/uL Normal 4.6-6.2 [facility] Comment on above: Performed By: #### L 100.0100, L500.4050, L3410.9999 #### [facility] [address] [place], [address] RDW SD 43.0 fl Normal 35.1-43.9 [facility] Comment on above: Performed By: #### L 100.0100, L500.4050, L3410.9999 #### [facility] [address] [place], [address] WBC (Bld) [#/Vol] 8.1 10*3/uL Normal 4.4-11.0 [facility] Comment on above: Performed By: #### L 100.0100, L500.4050, L3410.9999 #### [facility] [address] [place], [address] Comprehensive Metabolic [facility] 07-20-2024 Albumin [Mass/Vol] 4.3 g/dL Normal 3.2-5.0 [facility] Comment on above: Performed By: #### L 100.0100, L500.4050, L3410.9999 #### [facility] [address] [place], [address] Albumin/Globulin [Mass ratio] 1.2 {ratio} Normal 0.9-2.4 [facility] Comment on above: Performed By: #### L 100.0100, L500.4050, L3410.9999 #### [facility] [address] [place], [address] ALK P 83 U/L Normal 45-117 [facility] Comment on above: Performed By: #### L 100.0100, L500.4050, L3410.9999 #### [facility] [address] [place], [address] ALT [Catalytic activity/Vol] 42 U/L Normal 16-61 [facility] Comment on above: Performed By: #### L 100.0100, L500.4050, L3410.9999 #### [facility] [address] [place], [address] AST [Catalytic activity/Vol] 24 U/L Normal 15-37 [facility] Comment on above: Performed By: #### L 100.0100, L500.4050, L3410.9999 #### [facility] [address] [place], [address] Bilirubin [Mass/Vol] 0.50 mg/dL Normal 0.20-1.00 [facility] Comment on above: Result Comment: For patients on eltrombopag therapy, use of Dimension [place] TBIL is not recommended. Performed By: #### L 100.0100, L500.4050, L3410.9999 #### [facility] [address] [place], [address] BUN/CRE 12.6 RATIO Normal 10-20 [facility] Comment on above: Performed By: #### L 100.0100, L500.4050, L3410.9999 #### [facility] [address] [place], [address] CA,Total 9.2 mg/dL Normal 8.5-10.1 [facility] Comment on above: Performed By: #### L 100.0100, L500.4050, L3410.9999 #### [facility] [address] [place], [address] Chloride [Moles/Vol] 108 mmol/L High 98-107 [facility] Comment on above: Performed By: #### L 100.0100, L500.4050, L3410.9999 #### [facility] [address] [place], [address] CO2 [Moles/Vol] 27.0 mmol/L Normal 21.0-32.0 [facility] Comment on above: Performed By: #### L 100.0100, L500.4050, L3410.9999 #### [facility] [address] [place], [address] Creatinine [Mass/Vol] 0.95 mg/dL Normal 0.70-1.30 [facility] Comment on above: Result Comment: The validity of the calculated GFR GFRAA in patients over 70 years has not been determined. Clinical correlation is essential. Performed By: #### L 100.0100, L500.4050, L3410.9999 #### [facility] [address] [place], [address] ECRCL 100.14 ml/min Normal [facility] Comment on above: Performed By: #### L 100.0100, L500.4050, L3410.9999 #### [facility] [address] [place], [address] EST GFR - AA 103 mL/min Normal >60 [facility] Comment on above: Result Comment: Afri can [place] GFR Calc Performed By: #### L 100.0100, L500.4050, L3410.9999 #### [facility] [address] [place], [address] GAP 5 Normal 5-15 [facility] Comment on above: Performed By: #### L 100.0100, L500.4050, L3410.9999 #### [facility] [address] [place], [address] GFR/1.73 sq M.predicted among non-blacks MDRD (S/P/Bld) [Vol rate/Area] 85 mL/min/{1.73_m2} Normal >60 [facility] Comment on above: Result Comment: Non- GFR Calc Performed By: #### L 100.0100, L500.4050, L3410.9999 #### [facility] [address] [place], [address] Globulin (S) [Mass/Vol] 3.7 g/dL Normal 2.2-4.2 [facility] Comment on above: Performed By: #### L 100.0100, L500.4050, L3410.9999 #### [facility] [address] [place], [address] Glucose [Mass/Vol] 87 mg/dL Normal 74-106 [facility] Comment on above: Performed By: #### L 100.0100, L500.4050, L3410.9999 #### [facility] [address] [place], [address] Potassium [Moles/Vol] 3.9 mmol/L Normal 3.5-5.1 [facility] Comment on above: Performed By: #### L 100.0100, L500.4050, L3410.9999 #### [facility] [address] [place], [address] Sodium [Moles/Vol] 140 mmol/L Normal 136-145 [facility] Comment on above: Performed By: #### L 100.0100, L500.4050, L3410.9999 #### [facility] [address] [place], [address] T PROT 8.0 g/dL Normal 6.4-8.2 [facility] Comment on above: Performed By: #### L 100.0100, L500.4050, L3410.9999 #### [facility] [address] [place], [place], [address] Urea nitrogen [Mass/Vol] 12 mg/dL Normal 7-18 [facility] Comment on above: Performed By: #### L 100.0100, L500.4050, L3410.9999 #### [facility] [address] [place], [place], [address] No Panel InformationOrdered By: Savi Rodriguez on 07-20-2024 Miscellaneous Test COMMENT . [facility] Comment on above: Test Ordered: [id number] BCR-ABL1, CML/ALL, PCR, [id number] (b2a2) transcript <0.0032 % % LUU Reference Range: .e14a2 (b3a2) transcript <0.0032 % % LUU Reference Range: .e1a2 transcript <0.0032 % % LUU Reference Range: .Interpretation: Negative LUU Reference Range: .NEGATIVE for the BCR-ABL1 e1a2 (p190), e13a2 (b2a2, p210)and e14a2 (b3a2, p210) fusion transcripts. These results donot rule out the presence of rare BCR-ABL1 transcripts notdetected by this assay.Director Review Comment LUU Reference Range: .Technical Component performed at [facility] RTPProfessional Component performed by:Anke Kaye Mckeon, PhD, FACMGDirector, Molecular [id number] [facility] , [place] [phone] Comment LUU Reference Range: .This assay can detect three different types of BCR-PHH0mozyip transcripts associated with CML, ALL, and AML: [...] PCR primers and probes are specific for BCR-QCA5e61e9, e14a2 and e1a2 fusion transcripts. The LWI9vshoyvzvjq is amplified as the control for cDNA quantityand quality. Serial dilutions of a validated positivecontrol RNA with known t(9;22) BCR-ABL1 are used asreference for quantification of BCR-ABL1 relative toABL1. The numeric BCR-ABL1 level is reported as % BCR-ABL1/ABL1 and the detection sensitivity is 4.5 log belowthe standard baseline (<0.0032%).This test was developed and its performance characteristicsdetermined by [employer]. It has not been cleared or approvedby the Food and Drug Administration.Performed at: [facility] [employer] [id number] [place], [place] [id number] Director: Sherri Davey [facility], Phone: [phone] at: [facility] [employer] [id number] [place] [id number] Director: Sherri Davey [facility], Phone: [phone] at: [address] [id number] Director: Michael Ragsdale PhD, Phone: [phone] Pulmonary Visit Reporton Pulmonary Visit Report [facility] of [address] [place] [address] OFFICE VISIT Date of Service: 06/29/24 MR#: [id number] Acct: [id number] Name: MARISAPATRICIAFREDERIC Rep #: [id number] : 1960 Provider: SELVIN De La Rosa Age/Sex: 64/M Location: [facility].PMW Status: Signed Assessment and Plan Assessment and [...] Chief Complaint: Chronic myeloid leukemia on treatment 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 Normal [facility] Absolute lymphocyte countOrd ered By: Sawyer Delgado on 10-23-2023 Lymphocytes Auto (Unsp spec) [#/Vol] 1.34 10*3/uL 0.83-4.51 [facility] Automated lymphocyte count a s percentage of total leukocytesOrdered By: Sawyer Delgado on 10-23-2023 Lymphocytes/100 WBC Auto (Unsp spec) 18.7 % 19-41 [facility] Basophil percentageOrdered B y: Sawyer Delgado on 10-23-2023 Basophils/100 WBC (Bld) 1.0 % 0-1 [facility] Bilirubin [Mass/Vol] 0.40 mg/dL 0.20-1.00 [facility] Comment on above: For patients on eltr ombopag therapy, use of Dimension [place] TBIL is not recommended. Chloride [Moles/Vol] 105 mmol/L 98-107 [facility] Eosinophils/100 WBC (Bld) 5.7 % 0-5 [facility] Glucose [Mass/Vol] 151 mg/dL 74-106 [facility] Comment on above: Fasting Glucose resu lt greater than or equal to 126 mg/dL suggests DIABETES MELLITUS per A.D.A. criteria. Hemoglobin (Bld) [Mass/Vol] 15.1 g/dL 13.0-16.5 [facility] Monocytes/100 WBC (Bld) 9.6 % 0-10 [facility] Neutrophils (Bld) [#/Vol] 4.6 10*3/uL 2.0-7.7 [facility] Neutrophils/100 WBC (Bld) 64.7 % 47-70 [facility] Potassium [Moles/Vol] 3.9 mmol/L 3.5-5.1 [facility] Protein [Mass/Vol] 7.7 g/dL 6.4-8.2 [facility] Sodium [Moles/Vol] 137 mmol/L 136-145 [facility] WBC (Bld) [#/Vol] 7.2 10*3/uL 4.4-11.0 [facility] Determination of erythrocyte mean corpuscular volume (MCV)Ordered By: Sawyer Delgado on 10-23-2023 MCV (RBC) [Entitic vol] 87.4 fL 80-94 [facility] Erythrocyte distribution wid th ratioOrdered By: Sawyer Delgado on 10-23-2023 Erythrocyte distribution width (RBC) [Ratio] 13.4 % 11.6-14.6 [facility] Erythrocyte distribution wid th standard deviationOrdered By: Sawyer Delgado on 10-23-2023 Erythrocyte distribution width (RBC) [Entitic vol] 43.3 fL 35.1-43.9 [facility] Hematocrit Auto (Bld) [Volum e fraction]Or[facility]: [facility] on 10-23-2023 Hematocrit (Bld) [Volume fraction] 45.1 % 40-54 [facility] Immature granulocytes/100 WB C Auto (Bld)Ordered By: [facility] Danny on 10-23-2023 Immature granulocytes/100 WBC (Bld) 0.300 % 0.0-0.9 [facility] Comment on above: IG% - Immature Granu locytes (promyelocytes, myelocytes and metamyelocytes) > 1% indicates that a LEFT SHIFT is Present. Laboratory - Chemistry and C hemistry - challengeOrdered By: [facility] Danny on 10-23-2023 Albumin/Globulin [Mass ratio] 1.0 {ratio} 0.9-2.4 [facility] ALP [Catalytic activity/Vol] 67 U/L 45-117 [facility] ALT [Catalytic activity/Vol] 45 U/L 16-61 [facility] CO2 [Moles/Vol] 28.0 mmol/L 21.0-32.0 [facility] Globulin (S) [Mass/Vol] 3.8 g/dL 2.2-4.2 [facility] Urea nitrogen/Creatinine [Mass ratio] 14.0 mg/mg 10-20 [facility] - Hematology and Cell countsOrdered By: [facility] Danny on 10-23-2023 MCH (RBC) [Entitic mass] 29.3 pg 27.0-32.0 [facility] MCHC (RBC) [Mass/Vol] 33.5 g/dL 32-36 [facility] Nucleated RBC/100 WBC (Bld) [Ratio] 0 % 0-5 [facility] Platelet mean volume (Bld) [Entitic vol] 10.1 fL 6.2-12.0 [facility] Platelets (Bld) [#/Vol] 244 10*3/uL 150-450 [facility] No Panel InformationOrdered By: Sawyer Delgado on 10-23-2023 Estimated Creatinine Clearance Calc 104.24 ml/min [facility] Estimated GFR (MDRD) Amer 105 mL/min >60 [facility] Comment on above: GFR Calc Estimated GFR (MDRD) Non-Af Amer 87 mL/min >60 [facility] Comment on above: Non- GFR Calc RBC Auto (Bld) [#/Vol]Ordere d By: Sawyer Delgado on 10-23-2023 RBC (Bld) [#/Vol] 5.16 10*6/uL 4.6-6.2 [facility] Serum or plasma calcium mary urement (mass/volume)Ordered By: Sawyer Delgado on 10-23-2023 Calcium [Mass/Vol] 8.9 mg/dL 8.5-10.1 [facility] Serum or plasma creatinine m easurement (mass/volume)Ordered By: Sawyer Delgado on 10-23-2023 Creatinine [Mass/Vol] 0.93 mg/dL 0.70-1.30 [facility] Comment on above: The validity of the calculated GFR & GFRAA in patients over 70 years has not been determined. Clinical correlation is essential. Serum or plasma urea nitroge n measurement (mass/volume)Ordered By: Sawyer Delgado on 10-23-2023 Urea nitrogen [Mass/Vol] 13 mg/dL 7-18 [facility] Thin prep Papanicolaou smear with manual screeningOrdered By: Sawyer Delgado on 10-23-2023 Thin prep Papanicolaou smear with manual screening 3.9 g/dL 3.2-5.0 [facility] Thin prep Papanicolaou smear with manual screening 29 U/L 15-37 [facility] Thin prep Papanicolaou smear with manual screening 4 5-15 [facility] RNA EXTRACTIONOrdered By: Sa patrizia Abbott on 07-31-2023 [facility] BCR/ABL BLOOD OR BONE MARROW ,T(9;22),QUANTOrdered By: Moses Cheney on 07-30-2023 Receiving Status Accessioned in Lab [facility] CBC AND ELECTRONIC DIFFon Basophils (Bld) [#/Vol] 0.06 10*3/uL 0.00 - 0.09 K/uL [facility] Basophils/100 WBC (Bld) 0.8 % [facility] Differential cell count method Nom (Bld) Electronic Differential [facility] Eosinophils (Bld) [#/Vol] 0.37 10*3/uL 0.00 - 0.48 K/uL [facility] Eosinophils/100 WBC (Bld) 4.7 % [facility] Erythrocyte distribution width (RBC) [Ratio] 13.5 % 10.9 - 14.3 % [facility] Hematocrit (Bld) [Volume fraction] 45.1 % 39.6 - 48.8 % [facility] Hemoglobin (Bld) [Mass/Vol] 15.5 g/dL 13.4 - 16.8 g/dL [facility] Immature granulocytes (Bld) [#/Vol] K/uL NINF - 0.07 K/uL [facility] Immature granulocytes/100 WBC (Bld) 0.1 % [facility] Lymphocytes (Bld) [#/Vol] 1.62 10*3/uL 0.83 - 3.57 K/uL [facility] Lymphocytes/100 WBC (Bld) 20.6 % [facility] MCH (RBC) [Entitic mass] 30.1 pg 26.1 - 33.3 pg [facility] MCHC (RBC) [Mass/Vol] 34.4 g/dL 31.9 - 36.5 g/dL [facility] MCV (RBC) [Entitic vol] 87.6 fL 79.0 - 94.5 fL [facility] Monocytes (Bld) [#/Vol] 0.73 10*3/uL 0.24 - 0.93 K/uL [facility] Monocytes/100 WBC (Bld) 9.3 % [facility] Neutrophils (Bld) [#/Vol] 5.07 10*3/uL 1.57 - 6.19 K/uL [facility] Nucleated RBC/100 WBC (Bld) [Ratio] 0.0 % [facility] Platelet mean volume (Bld) [Entitic vol] 10.1 fL 8.7 - 12.3 fL [facility] Platelets (Bld) [#/Vol] 257 10*3/uL 146 - 337 K/uL [facility] RBC (Bld) [#/Vol] 5.15 10*6/uL [facility] Segmented neutrophils/100 WBC (Bld) 64.5 % [facility] [facility] WBC (Bld) [#/Vol] 7.86 10*3/uL 3.73 - 10.10 K/uL [facility] COMPREHENSIVE METABOLIC PANE [place]ar 07-30-2023 Albumin [Mass/Vol] 4.6 g/dL 3.5 - 5.0 g/dL [facility] ALP [Catalytic activity/Vol] 70 U/L 32 - 126 U/L [facility] ALT [Catalytic activity/Vol] 26 U/L 10 - 52 U/L [facility] Anion gap [Moles/Vol] 10 mmol/L 7 - 17 mmol/L [facility] AST [Catalytic activity/Vol] 24 U/L 10 - 39 U/L [facility] Bilirubin [Mass/Vol] 0.3 mg/dL NINF - 1.5 mg/dL [facility] Calcium [Mass/Vol] 9.4 mg/dL 8.6 - 10. 5 mg/dL [facility] Chloride [Moles/Vol] 104 mmol/L 98 - 10 8 mmol/L [facility] CO2 [Moles/Vol] 26 mmol/L 21 - 31 mmol/L [facility] Creatinine [Mass/Vol] 0.96 mg/dL 0.70 - 1.30 mg/dL [facility] eGFR, CKD-EPI, Male 89 - PINF [facility] Comment on above: Reported eGFR is bas ed on the CKD-EPI 2020 equation using creatinine, age, and sex. Glucose [Mass/Vol] 129 mg/dL High 70 - 99 mg/dL [facility] Interpretation and review of laboratory results Abnormal [facility] Osmolality Calc [Osmolality] 287 [facility] Potassium [Moles/Vol] 4.0 mmol/L 3.5 - 5.0 mmol/L [facility] Protein [Mass/Vol] 7.6 g/dL 6.4 - 8.3 g/dL [facility] Sodium [Moles/Vol] 136 mmol/L 135 - 145 mmol/L [facility] Urea nitrogen [Mass/Vol] 11 mg/dL 7 - 25 mg/dL [facility] Urea nitrogen/Creatinine [Mass ratio] 11 mg/mg [facility] Spine lumbosacral junctio n [place] 07-30-2023 [...] facet arthrosis. No compression deformity or malalignment. [facility] Radiology Study observation (narrative) [facility] XR Spine lumbosacral junctio n ViewsOrdered By: Nikko Vargas on 07-30-2023 [facility] Work Phone: No Panel InformationOrdered By: Sawyer Delgado on 07-26-2023 Miscellaneous Test See comment [facility] Comment on above: TEST RESULT LIMITSBC R-ABL1, [...] by this assay.Director ReviewTechnical Component performed at [facility] RTPProfessional Component performed by:Christopher Mckeon, PhD, FACMGDirector, Molecular [id number] [place] [address] Dr.Chapel [place], [place] [phone] assay can detect three different types of [...] developed and its performance characteristics determined by [employer]. It has not been cleared or approved by the Food and Drug Administration. TESTING PERFORMED AT [facility]. ORIGINAL REPORT ON FILE IN LAB CONTAINS ADDITIONAL TEST SITE INFORMATION. Absolute lymphocyte countOrd ered By: Sawyer Delgado on 04-22-2023 Lymphocytes Auto (Unsp spec) [#/Vol] 1.72 10*3/uL 0.83-4.51 [facility] Basophil percentageOrdered B y: Sawyer Delgado on 04-22-2023 Basophil percentage 2.2 mg/dL 2.5-4.9 [facility] Basophils/100 WBC (Bld) 1.0 % 0-1 [facility] Bilirubin [Mass/Vol] 0.40 mg/dL 0.20-1.00 [facility] Comment on above: For patients on eltr ombopag therapy, use of Dimension [place] TBIL is not recommended. Chloride [Moles/Vol] 106 mmol/L 98-107 [facility] Eosinophils/100 WBC (Bld) 5.3 % 0-5 [facility] Glucose [Mass/Vol] 141 mg/dL 74-106 [facility] Comment on above: Fasting Glucose resu lt greater than or equal to 126 mg/dL suggests DIABETES MELLITUS per A.D.A. criteria. Neutrophils (Bld) [#/Vol] 5.6 10*3/uL 2.0-7.7 [facility] Neutrophils/100 WBC (Bld) 63.1 % 47-70 [facility] Potassium [Moles/Vol] 4.1 mmol/L 3.5-5.1 [facility] Protein [Mass/Vol] 7.7 g/dL 6.4-8.2 [facility] Sodium [Moles/Vol] 138 mmol/L 136-145 [facility] WBC (Bld) [#/Vol] 8.9 10*3/uL 4.4-11.0 [facility] Blood erythrocytes count (nu mber/volume)Ordered By: Sawyer Delgado on 04-22-2023 RBC (Bld) [#/Vol] 5.21 10*6/uL 4.6-6.2 [facility] Blood hemoglobin measurement (mass/volume)Ordered By: Sawyer Delgado on 04-22-2023 Hemoglobin (Bld) [Mass/Vol] 15.6 g/dL 13.0-16.5 [facility] Blood lymphocytes/100 leukoc ytesOrdered By: Sawyer Delgado on 04-22-2023 Lymphocytes/100 WBC (Bld) 19.3 % 19-41 [facility] Blood monocytes/100 leukocyt esOrdered By: Sawyer Delgado on 04-22-2023 Monocytes/100 WBC (Bld) 11.0 % 0-10 [facility] Blood platelet mean volumeOr dered By: Sawyer Delgado on 04-22-2023 Platelet mean volume (Bld) [Entitic vol] 10.6 fL 6.2-12.0 [facility] Determination of erythrocyte mean corpuscular volume (MCV)Ordered By: Sawyer Delgado on 04-22-2023 MCV (RBC) [Entitic vol] 88.7 fL 80-94 [facility] Hematocrit Auto (Bld) [Volum e fraction]Ordered By: Sawyer Delgado on 04-22-2023 Hematocrit (Bld) [Volume fraction] 46.2 % 40-54 [facility] Laboratory - Chemistry and C hemistry - challengeOrdered By: Sawyer Delgado on 04-22-2023 ALP [Catalytic activity/Vol] 78 U/L 45-117 [facility] ALT [Catalytic activity/Vol] 37 U/L 16-61 [facility] CO2 [Moles/Vol] 27.0 mmol/L 21.0-32.0 [facility] Globulin (S) [Mass/Vol] 3.7 g/dL 2.2-4.2 [facility] Magnesium [Mass/Vol] 2.2 mg/dL 1.6-2.6 [facility] Urea nitrogen/Creatinine [Mass ratio] 10.0 mg/mg 10-20 [facility] Laboratory - Hematology and Cell countsOrdered By: Sawyer Delgado on 04-22-2023 Erythrocyte distribution width (RBC) [Entitic vol] 44.2 fL 35.1-43.9 [facility] Erythrocyte distribution width (RBC) [Ratio] 13.6 % 11.6-14.6 [facility] Immature granulocytes/100 WBC (Bld) 0.300 % 0.0-0.9 [facility] Comment on above: IG% - Immature Granu locytes (promyelocytes, myelocytes and metamyelocytes) > 1% indicates that a LEFT SHIFT is Present. MCH (RBC) [Entitic mass] 29.9 pg 27.0-32.0 [facility] Nucleated RBC/100 WBC (Bld) [Ratio] 0 % 0-5 [facility] MCHC Auto (RBC) [Mass/Vol]Or dered By: Sawyer Delgado on 04-22-2023 MCHC (RBC) [Mass/Vol] 33.8 g/dL 32-36 [facility] No Panel InformationOrdered By: Sawyer Delgado on 04-22-2023 Estimated Creatinine Clearance Calc 76.42 ml/min [facility] Estimated GFR (MDRD) Amer 87 mL/min >60 [facility] Comment on above: GFR Calc Estimated GFR (MDRD) Non-Af Amer 72 mL/min >60 [facility] Comment on above: Non- GFR Calc Miscellaneous Test See comment [facility] Comment on above: TEST RESULT LIMITSBC R-ABL1, CML/ALL, PCR, Quant e13a2 (b2a2) transcript 0.0313 % e14a2 (b3a2) transcript % <0.0032 % e1a2 transcript % <0.0032 %Interpretation: Positive Abnormal POSITIVE for the BCR-ABL1 e13a2 (b2a2, p210) fusion transcript.Director ReviewTechnical Component performed at [facility] RTPProfessional Component performed by:Christopher Mckeon, PhD, FACMGDirector, Molecular [id number] [place] [address] Dr.Chapel ColesCULLOWHEE, [place] [phone] assay can detect three different types of BCR-ABL1 fusiontranscripts associated with CML, ALL, and AML: e13a2 ([id number]) and e14a2 (previously b3a2) (major breakpoint, p210), [...] developed and its performance characteristics determined by [facility]. It has not been cleared or approved by the Food and Drug Administration. TESTING PERFORMED AT [facility]. ORIGINAL REPORT ON FILE IN LAB CONTAINS ADDITIONAL TEST SITE INFORMATION. Platelets bldOrdered By: Glen calvert Danny on 04-22-2023 Platelets (Bld) [#/Vol] 247 10*3/uL 150-450 [facility] Serum or plasma albumin mary urement (mass/volume)Ordered By: Sawyer Delgado on 04-22-2023 Albumin [Mass/Vol] 4.0 g/dL 3.2-5.0 [facility] Serum or plasma albumin/glob ulin mass ratioOrdered By: Sawyer Delgado on 04-22-2023 Albumin/Globulin [Mass ratio] 1.1 {ratio} 0.9-2.4 [facility] Serum or plasma calcium mary urement (mass/volume)Ordered By: Sawyer eDlgado on 04-22-2023 Calcium [Mass/Vol] 8.7 mg/dL 8.5-10.1 [facility] Serum or plasma creatinine m easurement (mass/volume)Ordered By: Sawyer Delgado on 04-22-2023 Creatinine [Mass/Vol] 1.10 mg/dL 0.70-1.30 [facility] Comment on above: The validity of the calculated GFR & GFRAA in patients over 70 years has not been determined. Clinical correlation is essential. Serum or plasma urea nitroge n measurement (mass/volume)Ordered By: Sawyer Delgado on 04-22-2023 Urea nitrogen [Mass/Vol] 11 mg/dL 7-18 [facility] Thin prep Papanicolaou smear with manual screeningOrdered By: Sawyer Delgado on 04-22-2023 Thin prep Papanicolaou smear with manual screening 23 U/L 15-37 [facility] Thin prep Papanicolaou smear with manual screening 5 5-15 [facility] Blood Glucose , Office [phone] By: Terese Sweet on 04-03-2023 Glucose Glucometer (BldC) [Moles/Vol] 101 1 Normal [facility]; [facility] Work Phone: HgA1C , Office ([phone])Linda quiles By: Terese Sweet on 04-03-2023 HbA1c (Bld) [Mass fraction] 6.4 % Normal 4.6 - 7.1 [facility]; [facility] Work Phone: CBC W/AUTO DIFF WBC ([phone])O rdered By: Fish Hatchery Worker on 03-28-2023 Basophils (Bld) [#/Vol] 0.1 10*3/uL [...] MCHC (RBC) [Mass/Vol] 33.9 g/dL Normal 31.5-35.7 [facility] Work Phone: MCV (RBC) [Entitic vol] 90 fL Normal 79-97 [facility]; [facility] Work Phone: Monocytes (Bld) [#/Vol] 0.8 10*3/uL Normal 0.1-0.9 [facility]; [facility] Work Phone: Monocytes/100 WBC (Bld) 10 % Normal [facility]; [facility] Work Phone: Neutrophils (Bld) [#/Vol] 5.1 10*3/uL Normal 1.4-7.0 [facility]; [facility] Work Phone: Neutrophils/100 WBC (Bld) 67 % Normal [facility]; [facility] Work Phone: Platelets (Bld) [#/Vol] 239 10*3/uL Normal 150-450 [facility]; [facility] Work Phone: RBC (Bld) [#/Vol] 5.35 10*6/uL Normal 4.14-5.80 [facility] ehensive Internal Medicine; [facility] Work Phone: WBC (Bld) [#/Vol] 7.7 10*3/uL Normal 3.4-10.8 [facility]; [facility] Work Phone: LIPID PANEL ([phone])Ordered B y: Fish Hatchery Worker on 03-28-2023 Cholesterol [Mass/Vol] 174 mg/dL Normal 100-199 [facility] Work Phone: Cholesterol in HDL [Mass/Vol] 52 mg/dL Normal [facility]; [facility] Work Phone: Triglyceride [Mass/Vol] 175 mg/dL Abnormal 0-149 [facility]; [facility] Work Phone: LIPID PANEL ([phone]) 30 mg/dL Normal 5-40 [facility]; [facility] Work Phone: LIPID PANEL ([phone]) 92 mg/dL Normal 0-99 [facility]; [facility] Work Phone: LIPID PANEL ([phone]) 1.8 {ratio} Normal 0.0-3.6 [facility]; [facility] Work Phone: METABOLIC PANEL, COMPREHENSI VE ([phone])Ordered By: Fish Hatchery Worker on 03-28-2023 Albumin [Mass/Vol] 4.7 g/dL Normal 3.9-4.9 [facility] Internal [facility]; [facility] Work Phone: Albumin/Globulin [Mass ratio] 1.8 {ratio} Normal 1.2-2.2 [facility]; [facility] Work Phone: ALP [Catalytic activity/Vol] 76 U/L Normal 44-121 [facility]; [facility] Work Phone: ALT [Catalytic activity/Vol] 39 U/L Normal 0-44 [facility]; [facility] Work Phone: AST [Catalytic activity/Vol] 30 U/L Normal 0-40 [facility]; [facility] Work Phone: Bilirubin [Mass/Vol] 0.4 mg/dL Normal 0.0-1.2 [facility]; [facility] Work Phone: Calcium [Mass/Vol] 9.5 mg/dL Normal 8.6-10.2 [facility] Internal [facility]; [facility] Work Phone: Chloride [Moles/Vol] 103 mmol/L Normal 96-106 [facility] Internal Medicine; [facility] Work Phone: CO2 [Moles/Vol] 23 mmol/L Normal 20-[address] [facility] Internal Medicine; [facility] Work Phone: Creatinine [Mass/Vol] 0.98 mg/dL Normal 0.76-1.27 [facility]; [facility] Work Phone: Globulin (S) [Mass/Vol] 2.6 g/dL Normal 1.5-4.5 [facility]; [facility] Work Phone: Glucose [Mass/Vol] 106 mg/dL Abnormal 70-99 [facility]; [facility] Work Phone: Potassium [Moles/Vol] 4.5 mmol/L Normal 3.5-5.2 [facility] prehensive Internal Medicine; [facility] Work Phone: Protein [Mass/Vol] 7.3 g/dL Normal 6.0-8.5 [facility]; [facility] Work Phone: Sodium [Moles/Vol] 141 mmol/L Normal 134-144 [facility]; [facility] Work Phone: Urea nitrogen [Mass/Vol] 11 mg/dL Normal 8-27 [facility]; [facility] Work Phone: Urea nitrogen/Creatinine [Mass ratio] 11 mg/mg Normal 10-24 [facility]; [facility] Work Phone: METABOLIC PANEL, COMPREHENSIVE ([phone]) 87 mL/min/1.73 Normal Comprehens [facility] Internal [facility]; [facility] Work Phone: MICROALBUMINOrdered By: Syst em Fretted Instrument Inspector on 03-28-2023 Albumin DL <= 20 mg/L (U) [Mass/Vol] 9.9 ug/mL Normal [facility]; [facility] Work Phone: Albumin/Creatinine (U) [Mass ratio] 11 {mg/g_creat} Normal 0-29 [facility]; [facility] Work Phone: Creatinine (U) [Mass/Vol] 91.0 mg/dL Normal [facility]; [facility] Work Phone: PSA (PROSTATE SPECIFIC ANTIG EN) (V76.44)Ordered By: Fish Hatchery Worker on 03-28-2023 Prostate specific Ag [Mass/Vol] 0.4 ng/mL Normal 0.0-4.0 [facility]; [facility] Work Phone: TSH ([phone])Ordered By: Syste m Fretted Instrument Inspector on 03-28-2023 TSH Qn 2.700 {uIU/mL} Normal 0.450-4.50 0 [facility]; [facility] Work Phone: URINALYSIS, W/ MICRO ([phone]) Ordered By: Fish Hatchery Worker on 03-28-2023 Appearance (U) Clear Normal Comprehens [...] Medicine Work Phone: Blood Glucose , Office [phone] By: Víctor Barton on 12-31-2022 Glucose Glucometer (BldC) [Moles/Vol] 116 1 Normal [facility]; [facility] Work Phone: HgA1C , Office ([phone])Ordere d By: Víctor Barton on 12-31-2022 HbA1c (Bld) [Mass fraction] 6.2 % Normal 4.6 - 7.1 [facility]; [facility] Work Phone: Basophil percentageOrdered B y: Savi Rodriguez on 11-15-2022 Basophil percentage 0-5 SEEN /hpf 0-5 [facility] Bilirubin Test strip Ql (U)O rdered By: Savi Rodriguez on 11-15-2022 Bilirubin Ql (U) Negative Negative [facility] Culture, urineOrdered By: Derik Rodriguez on 11-15-2022 Bacteria identified Cx Nom (U) Culture exhibits no growth. [facility] Bacteria identified Cx Nom (U) Culture exhibits no growth. [facility] Ketones Test strip Ql (U)Ord ered By: Savi UngerMichael on 11-15-2022 Ketones Ql (U) Negative Negative [facility] Mucus LM Ql (Urine sed)Order ed By: Savi UngerMichael on 11-15-2022 Mucus Ql (Urine sed) 0 SEEN /hpf [facility] Nitrite Test strip Ql (U)Ord ered By: Savi UngerMichael on 11-15-2022 Nitrite Ql (U) Negative Negative [facility] Protein Test strip Ql (U)Ord ered By: Savi UngerMichael on 11-15-2022 Protein Ql (U) Negative Negative [facility] Squamous epithelial cells de tection in urine sediment by light microscopyOrdered By: Savi Rodriguez on 11-15-2022 Epithelial cells.squamous LM Ql (Urine sed) 0 SEEN /hpf 0-5 [facility] Urine blood detectionOrdered By: Svai UngerMichael on 11-15-2022 RBC Ql (U) Negative Negative [facility] RBC Ql (U) 0 SEEN /hpf 0-5 [facility] Urine clarityOrdered By: Priscilla Rodriguez on 11-15-2022 Clarity (U) Clear Clear [facility] Urine color determinationOrd ered By: Savi Rodriguez on 11-15-2022 Color (U) Yellow Yellow [facility] Urine glucose detectionOrder ed By: Savi Rodriguez on 11-15-2022 Glucose Ql (U) Normal mg/dl Normal [facility] Urine leukocyte esterase det ection by dipstickOrdered By: Savi Rodriguez on 11-15-2022 Leukocyte esterase Test strip Ql (U) 25 /ul High Negative [facility] Urine pHOrdered By: Savi carvajal on 11-15-2022 pH (U) 7.0 [pH] 5.0 - 8.0 [facility] Urine sediment bacteria coun t by microscopy (number/high power field)Ordered By: Savi Rodriguez on 11-15-2022 Bacteria LM.HPF (Urine sed) [#/Area] 0 /[HPF] None Seen [facility] Urine specific gravity measu rementOrdered By: Savi Rodriguez on 11-15-2022 Specific gravity (U) [Rel density] 1.010 1.002-1.03 0 [facility] Urobilinogen Auto test strip Ql (U)Ordered By: Savi Rodriguez on 11-15-2022 Urobilinogen Ql (U) Normal mg/dl Normal [facility] Absolute lymphocyte countOrd ered By: Dr. Delgado on 10-18-2022 Lymphocytes Auto (Unsp spec) [#/Vol] 1.17 10*3/uL 0.83-4.51 [facility] Basophil percentageOrdered B y: Dr. Delgado on 10-18-2022 Basophils/100 WBC (Bld) 0.8 % 0-1 [facility] Bilirubin [Mass/Vol] 0.30 mg/dL 0.20-1.00 [facility] Comment on above: For patients on eltr ombopag therapy, use of Dimension [place] TBIL is not recommended. Chloride [Moles/Vol] 103 mmol/L 98-107 [facility] Eosinophils/100 WBC (Bld) 4.4 % 0-5 [facility] Glucose [Mass/Vol] 173 mg/dL 74-106 [facility] Comment on above: Fasting Glucose resu lt greater than or equal to 126 mg/dL suggests DIABETES MELLITUS per A.D.A. criteria. Neutrophils (Bld) [#/Vol] 5.5 10*3/uL 2.0-7.7 [facility] Neutrophils/100 WBC (Bld) 70.5 % 47-70 [facility] Potassium [Moles/Vol] 4.5 mmol/L 3.5-5.1 [facility] Protein [Mass/Vol] 7.9 g/dL 6.4-8.2 [facility] Sodium [Moles/Vol] 137 mmol/L 136-145 [facility] WBC (Bld) [#/Vol] 7.7 10*3/uL 4.4-11.0 [facility] Blood erythrocytes count (nu mber/volume)Ordered By: Dr. Delgado on 10-18-2022 RBC (Bld) [#/Vol] 5.08 10*6/uL 4.6-6.2 [facility] Blood hemoglobin measurement (mass/volume)Ordered By: Dr. Delgado on 10-18-2022 Hemoglobin (Bld) [Mass/Vol] 15.0 g/dL 13.0-16.5 [facility] Blood lymphocytes/100 leukoc ytesOrdered By: Dr. Delgado on 10-18-2022 Lymphocytes/100 WBC (Bld) 15.1 % 19-41 [facility] Blood monocytes/100 leukocyt esOrdered By: Dr. Delgado on 10-18-2022 Monocytes/100 WBC (Bld) 9.1 % 0-10 [facility] Blood platelet mean volumeOr dered By: Dr. Delgado on 10-18-2022 Platelet mean volume (Bld) [Entitic vol] 10.0 fL 6.2-12.0 [facility] Determination of erythrocyte mean corpuscular volume (MCV)Ordered By: Dr. Delgado on 10-18-2022 MCV (RBC) [Entitic vol] 89.0 fL 80-94 [facility] Hematocrit Auto (Bld) [Volum e fraction]Ordered By: Dr. Delgado on 10-18-2022 Hematocrit (Bld) [Volume fraction] 45.2 % 40-54 [facility] Laboratory - Chemistry and C hemistry - challengeOrdered By: Dr. Delgado on 10-18-2022 ALP [Catalytic activity/Vol] 78 U/L 45-117 [facility] ALT [Catalytic activity/Vol] 40 U/L 16-61 [facility] CO2 [Moles/Vol] 28.0 mmol/L 21.0-32.0 [facility] Globulin (S) [Mass/Vol] 3.8 g/dL 2.2-4.2 [facility] Urea nitrogen/Creatinine [Mass ratio] 10.1 mg/mg 10-20 [facility] Laboratory - Hematology and Cell countsOrdered By: Dr. Delgado on 10-18-2022 Erythrocyte distribution width (RBC) [Entitic vol] 44.4 fL 35.1-43.9 [facility] Erythrocyte distribution width (RBC) [Ratio] 13.4 % 11.6-14.6 [facility] Immature granulocytes/100 WBC (Bld) 0.100 % 0.0-0.9 [facility] Comment on above: IG% - Immature Granu locytes (promyelocytes, myelocytes and metamyelocytes) > 1% indicates that a LEFT SHIFT is Present. MCH (RBC) [Entitic mass] 29.5 pg 27.0-32.0 [facility] Nucleated RBC/100 WBC (Bld) [Ratio] 0 % 0-5 [facility] MCHC Auto (RBC) [Mass/Vol]Or dered By: Dr. Delgado on 10-18-2022 MCHC (RBC) [Mass/Vol] 33.2 g/dL 32-36 [facility] No Panel InformationOrdered By: Dr. Delgado on 10-18-2022 Estimated Creatinine Clearance Calc 77.13 ml/min [facility] Estimated GFR (MDRD) Amer 88 mL/min >60 [facility] Comment on above: GFR Calc Estimated GFR (MDRD) Non-Af Amer 73 mL/min >60 [facility] Comment on above: Non- GFR Calc Platelets bldOrdered By: Dr. Delgado on 10-18-2022 Platelets (Bld) [#/Vol] 247 10*3/uL 150-450 [facility] Serum or plasma albumin mary urement (mass/volume)Ordered By: Dr. Delgado on 10-18-2022 Albumin [Mass/Vol] 4.1 g/dL 3.2-5.0 [facility] Serum or plasma albumin/glob ulin mass ratioOrdered By: Dr. Delgado on 10-18-2022 Albumin/Globulin [Mass ratio] 1.1 {ratio} 0.9-2.4 [facility] Serum or plasma calcium mary urement (mass/volume)Ordered By: Dr. Delgado on 10-18-2022 Calcium [Mass/Vol] 9.0 mg/dL 8.5-10.1 [facility] Serum or plasma creatinine m easurement (mass/volume)Ordered By: Dr. Delgado on 10-18-2022 Creatinine [Mass/Vol] 1.09 mg/dL 0.70-1.30 [facility] Comment on above: The validity of the calculated GFR & GFRAA in patients over 70 years has not been determined. Clinical correlation is essential. Serum or plasma urea nitroge n measurement (mass/volume)Ordered By: Dr. Delgado on 10-18-2022 Urea nitrogen [Mass/Vol] 11 mg/dL 7-18 [facility] Thin prep Papanicolaou smear with manual screeningOrdered By: Dr. Delgado on 10-18-2022 Thin prep Papanicolaou smear with manual screening 24 U/L 15-37 [facility] Thin prep Papanicolaou smear with manual screening 6 5-15 [facility] Basophil percentageOrdered B y: Dr. Hsu on 10-05-2022 Bilirubin [Mass/Vol] 0.40 mg/dL 0.20-1.00 [facility] Comment on above: For patients on eltr ombopag therapy, use of Dimension [place] TBIL is not recommended. Cholesterol [Mass/Vol] 145 mg/dL <200 [facility] Comment on above: <200 mg/dL Desirable 200-240 mg/dL Borderline >240 mg/dL High Risk Protein [Mass/Vol] 8.2 g/dL 6.4-8.2 [facility] Triglyceride [Mass/Vol] 229 mg/dL <199 [facility] Comment on above: The drugs N-Acetylcy steine and Metamizole may falsely depress this assay.Serum Triglycerides Reference Interval Normal <150 mg/dL Borderline high 150 - 199 mg/dL High 200 - 499 mg/dL Very High > or = 500 mg/dL Direct bilirubinOrdered By: Dr. Hsu on 10-05-2022 Bilirubin.direct [Mass/Vol] 0.13 mg/dL 0.00-0.30 [facility] - Chemistry and C hemistry - challengeOrdered By: Dr. Hsu on 10-05-2022 ALP [Catalytic activity/Vol] 80 U/L 45-117 [facility] ALT [Catalytic activity/Vol] 44 U/L 16-61 [facility] Globulin (S) [Mass/Vol] 4.0 g/dL 2.2-4.2 [facility] Serum or plasma albumin mary urement (mass/volume)Ordered By: Dr. Hsu on 10-05-2022 Albumin [Mass/Vol] 4.2 g/dL 3.2-5.0 [facility] Serum or plasma cholesterol in HDL measurement (mass/volume)Ordered By: Dr. Hsu on 10-05-2022 Cholesterol in HDL [Mass/Vol] 44 mg/dL >40 [facility] Comment on above: The drugs N-Acetylcy steine and Metamizole may falsely depress this assay. Reference Range HDL <40 mg/dL Low HDL Cholesterol HDL >or= 60 mg/dL High HDL Cholesterol Serum or plasma cholesterol in VLDL measurement (mass/volume)Ordered By: Dr. Hsu on 10-05-2022 Cholesterol in VLDL [Mass/Vol] 46 mg/dL 5-40 [facility] Serum or plasma low density lipoprotein (LDL) cholesterol measurement (mass/volume)Ordered By: Dr. Hsu on 10-05-2022 Cholesterol in LDL [Mass/Vol] 55 mg/dL 0-130 [facility] Thin prep Papanicolaou smear with manual screeningOrdered By: Dr. Hsu on 10-05-2022 Thin prep Papanicolaou smear with manual screening 25 U/L 15-37 [facility] Absolute lymphocyte countOrd ered By: Dr. Delgado on 10-04-2022 Lymphocytes Auto (Unsp spec) [#/Vol] 1.30 10*3/uL 0.83-4.51 [facility] Basophil percentageOrdered B y: Dr. Delgado on 10-04-2022 Basophil percentage 2.7 mg/dL 2.5-4.9 [facility] Basophils/100 WBC (Bld) 1.0 % 0-1 [facility] Bilirubin [Mass/Vol] 0.40 mg/dL 0.20-1.00 [facility] Comment on above: For patients on eltr ombopag therapy, use of Dimension [place] TBIL is not recommended. Chloride [Moles/Vol] 106 mmol/L 98-107 [facility] Eosinophils/100 WBC (Bld) 4.1 % 0-5 [facility] Glucose [Mass/Vol] 116 mg/dL 74-106 [facility] Comment on above: Fasting Glucose resu lt from 100 to 125 mg/dL suggests IMPAIRED HOMEOSTASIS per A.D.A. criteria. Neutrophils (Bld) [#/Vol] 4.9 10*3/uL 2.0-7.7 [facility] Neutrophils/100 WBC (Bld) 66.7 % 47-70 [facility] Potassium [Moles/Vol] 4.2 mmol/L 3.5-5.1 [facility] Protein [Mass/Vol] 8.0 g/dL 6.4-8.2 [facility] Sodium [Moles/Vol] 139 mmol/L 136-145 [facility] WBC (Bld) [#/Vol] 7.3 10*3/uL 4.4-11.0 [facility] Blood erythrocytes count (nu mber/volume)Ordered By: Dr. Delgado on 10-04-2022 RBC (Bld) [#/Vol] 5.30 10*6/uL 4.6-6.2 [facility] Blood hemoglobin measurement (mass/volume)Ordered By: Dr. Delgado on 10-04-2022 Hemoglobin (Bld) [Mass/Vol] 16.0 g/dL 13.0-16.5 [facility] Blood lymphocytes/100 leukoc ytesOrdered By: Dr. Delgado on 10-04-2022 Lymphocytes/100 WBC (Bld) 17.9 % 19-41 [facility] Blood monocytes/100 leukocyt esOrdered By: Dr. Delgado on 10-04-2022 Monocytes/100 WBC (Bld) 9.9 % 0-10 [facility] Blood platelet mean volumeOr dered By: Dr. Delgado on 10-04-2022 Platelet mean volume (Bld) [Entitic vol] 10.1 fL 6.2-12.0 [facility] Determination of erythrocyte mean corpuscular volume (MCV)Ordered By: Dr. Delgado on 10-04-2022 MCV (RBC) [Entitic vol] 89.2 fL 80-94 [facility] Hematocrit Auto (Bld) [Volum e fraction]Ordered By: Dr. Delgado on 10-04-2022 Hematocrit (Bld) [Volume fraction] 47.3 % 40-54 [facility] Laboratory - Chemistry and C hemistry - challengeOrdered By: Dr. Delgado on 10-04-2022 ALP [Catalytic activity/Vol] 68 U/L 45-117 [facility] ALT [Catalytic activity/Vol] 42 U/L 16-61 [facility] CO2 [Moles/Vol] 27.0 mmol/L 21.0-32.0 [facility] Globulin (S) [Mass/Vol] 3.9 g/dL 2.2-4.2 [facility] Magnesium [Mass/Vol] 2.1 mg/dL 1.6-2.6 [facility] Urea nitrogen/Creatinine [Mass ratio] 11.5 mg/mg 10-20 [facility] - Hematology and Cell countsOrdered By: Dr. Delgado on 10-04-2022 Erythrocyte distribution width (RBC) [Entitic vol] 43.5 fL 35.1-43.9 [facility] Erythrocyte distribution width (RBC) [Ratio] 13.3 % 11.6-14.6 [facility] Immature granulocytes/100 WBC (Bld) 0.400 % 0.0-0.9 [facility] Comment on above: IG% - Immature Granu locytes (promyelocytes, myelocytes and metamyelocytes) > 1% indicates that a LEFT SHIFT is Present. MCH (RBC) [Entitic mass] 30.2 pg 27.0-32.0 [facility] Nucleated RBC/100 WBC (Bld) [Ratio] 0 % 0-5 [facility] MCHC Auto (RBC) [Mass/Vol]Or dered By: Dr. Delgado on 10-04-2022 MCHC (RBC) [Mass/Vol] 33.8 g/dL 32-36 [facility] No Panel InformationOrdered By: Dr. Delgado on 10-04-2022 Estimated Creatinine Clearance Calc 87.57 ml/min [facility] Estimated GFR (MDRD) Amer 102 mL/min >60 [facility] Comment on above: GFR Calc Estimated GFR (MDRD) Non-Af Amer 84 mL/min >60 [facility] Comment on above: Non- GFR Calc Platelets bldOrdered By: Dr. Delgado on 10-04-2022 Platelets (Bld) [#/Vol] 253 10*3/uL 150-450 [facility] Serum or plasma albumin mary urement (mass/volume)Ordered By: Dr. Delgado on 10-04-2022 Albumin [Mass/Vol] 4.1 g/dL 3.2-5.0 [facility] Serum or plasma albumin/glob ulin mass ratioOrdered By: Dr. Delgado on 10-04-2022 Albumin/Globulin [Mass ratio] 1.1 {ratio} 0.9-2.4 [facility] Serum or plasma calcium mary urement (mass/volume)Ordered By: Dr. Delgado on 10-04-2022 Calcium [Mass/Vol] 9.1 mg/dL 8.5-10.1 [facility] Serum or plasma creatinine m easurement (mass/volume)Ordered By: Dr. Delgado on 10-04-2022 Creatinine [Mass/Vol] 0.96 mg/dL 0.70-1.30 [facility] Comment on above: The validity of the calculated GFR & GFRAA in patients over 70 years has not been determined. Clinical correlation is essential. Serum or plasma urea nitroge n measurement (mass/volume)Ordered By: Dr. Delgado on 10-04-2022 Urea nitrogen [Mass/Vol] 11 mg/dL 7-18 [facility] Thin prep Papanicolaou smear with manual screeningOrdered By: Dr. Delgado on 10-04-2022 Thin prep Papanicolaou smear with manual screening 27 U/L 15-37 [facility] Thin prep Papanicolaou smear with manual screening 6 5-15 [facility] Blood Glucose , Office ([phone])Ordered By: Loulou Church on 09-27-2022 Glucose Glucometer (BldC) [Moles/Vol] 104 1 Normal [facility]; [facility] Work Phone: CBC W/AUTO DIFF WBC ([id number])O rdered By: Fish Hatchery Worker on 09-27-2022 Basophils (Bld) [#/Vol] 0.1 10*3/uL [...] MCHC (RBC) [Mass/Vol] 33.9 g/dL Normal 31.5-35.7 [facility]; [facility] Work Phone: MCV (RBC) [Entitic vol] 89 fL Normal 79-97 [facility]; [facility] Work Phone: Monocytes (Bld) [#/Vol] 0.7 10*3/uL Normal 0.1-0.9 [facility]; [facility] Work Phone: Monocytes/100 WBC (Bld) 11 % Normal [facility]; [facility] Work Phone: Neutrophils (Bld) [#/Vol] 4.3 10*3/uL Normal 1.4-7.0 [facility]; [facility] Work Phone: Neutrophils/100 WBC (Bld) 66 % Normal [facility]; [facility] Work Phone: Platelets (Bld) [#/Vol] 234 10*3/uL Normal 150-450 [facility]; [facility] Work Phone: RBC (Bld) [#/Vol] 5.06 10*6/uL Normal 4.14-5.80 [facility] ehensive [facility]; [facility] Work Phone: WBC (Bld) [#/Vol] 6.5 10*3/uL Normal 3.4-10.8 [facility]; [facility] Work Phone: HgA1C , Office ([phone])Linda quiles By: Loulou Church on 09-27-2022 HbA1c (Bld) [Mass fraction] 6.7 % Normal 4.6 - 7.1 [facility]; [facility] Work Phone: LIPID PANEL ([id number])Ordered B y: Fish Hatchery Worker on 09-27-2022 Cholesterol [Mass/Vol] 138 mg/dL Normal 100-199 [facility] Work Phone: Cholesterol in HDL [Mass/Vol] 42 mg/dL Normal [facility]; [facility] Work Phone: Triglyceride [Mass/Vol] 138 mg/dL Normal 0-149 [facility]; [facility] Work Phone: LIPID PANEL ([phone]) 24 mg/dL Normal 5-40 [facility]; [facility] Work Phone: LIPID PANEL ([phone]) 72 mg/dL Normal 0-99 [facility]; [facility] Work Phone: LIPID PANEL ([id number]) 1.7 {ratio} Normal 0.0-3.6 [facility]; [facility] Work Phone: METABOLIC PANEL, COMPREHENSI VE ([phone])Ordered By: Fish Hatchery Worker on 09-27-2022 Albumin [Mass/Vol] 4.6 g/dL Normal 3.8-4.8 [facility]; [facility] Work Phone: Albumin/Globulin [Mass ratio] 1.8 {ratio} Normal 1.2-2.2 [facility]; [facility] Work Phone: ALP [Catalytic activity/Vol] 74 U/L Normal 44-121 [facility]; [facility] Work Phone: ALT [Catalytic activity/Vol] 26 U/L Normal 0-44 [facility]; [facility] Work Phone: AST [Catalytic activity/Vol] 23 U/L Normal 0-40 [facility]; [facility] Work Phone: Bilirubin [Mass/Vol] 0.3 mg/dL Normal 0.0-1.2 [facility] Work Phone: Calcium [Mass/Vol] 9.5 mg/dL Normal 8.6-10.2 [facility]; [facility] Work Phone: Chloride [Moles/Vol] 103 mmol/L Normal 96-106 [facility] rehensive Internal Medicine; [facility] Work Phone: CO2 [Moles/Vol] 24 mmol/L Normal 20-[address] [facility]; [facility] Work Phone: Creatinine [Mass/Vol] 0.91 mg/dL Normal 0.76-1.27 [facility]; [facility] Work Phone: Globulin (S) [Mass/Vol] 2.5 g/dL Normal 1.5-4.5 [facility]; [facility] Work Phone: Glucose [Mass/Vol] 109 mg/dL Abnormal 70-99 [facility]; [facility] Work Phone: Potassium [Moles/Vol] 4.5 mmol/L Normal 3.5-5.2 [facility] Work Phone: Protein [Mass/Vol] 7.1 g/dL Normal 6.0-8.5 [facility]; [facility] Work Phone: Sodium [Moles/Vol] 140 mmol/L Normal 134-144 [facility]; [facility] Work Phone: Urea nitrogen [Mass/Vol] 10 mg/dL Normal 8-27 [facility]; [facility] Work Phone: Urea nitrogen/Creatinine [Mass ratio] 11 mg/mg Normal 10-24 [facility]; [facility] Work Phone: METABOLIC PANEL, COMPREHENSIVE ([id number]) 95 mL/min/1.73 Normal [facility]; [facility] Work Phone: MICROALBUMINOrdered By: Syst em Fretted Instrument Inspector on 09-27-2022 Albumin DL <= 20 mg/L (U) [Mass/Vol] 20.5 ug/mL Normal [facility]; [facility] Work Phone: Albumin/Creatinine (U) [Mass ratio] 16 {mg/g_creat} Normal 0-29 [facility]; [facility] Work Phone: Creatinine (U) [Mass/Vol] 130.5 mg/dL Normal [facility]; [facility] Work Phone: TSH ([id number])Ordered By: Syste m Fretted Instrument Inspector on 09-27-2022 TSH Qn 2.710 {uIU/mL} Normal 0.450-4.50 0 [facility]; [facility] Work Phone: URINALYSIS, W/ MICRO ([id number]) Ordered By: Fish Hatchery Worker on 09-27-2022 Appearance (U) Cloudy Abnormal Comprehens [...] [facility] Work Phone: pH (U) 6.5 [pH] Normal 5.0-7.5 [facility]; [facility] Work Phone: Protein Ql (U) Trace Normal Comprehens [facility]anna [facility]; [facility] Work Phone: Specific gravity (U) [Rel density] 1.020 1 Normal 1.005-1.03 0 [facility]; [facility] Work Phone: Urobilinogen (U) [Mass/Vol] 0.2 mg/dL Normal 0.2-1.0 [facility]; [facility] Work Phone: Absolute lymphocyte countOrd ered By: Dr. Delgado on 09-06-2022 Lymphocytes Auto (Unsp spec) [#/Vol] 1.39 10*3/uL 0.83-4.51 [facility] Basophil percentageOrdered B y: Dr. Delgado on 09-06-2022 Basophil percentage 2.7 mg/dL 2.5-4.9 [facility] Basophils/100 WBC (Bld) 0.8 % 0-1 [facility] Bilirubin [Mass/Vol] 0.40 mg/dL 0.20-1.00 [facility] Comment on above: For patients on eltr ombopag therapy, use of Dimension [place] TBIL is not recommended. Chloride [Moles/Vol] 108 mmol/L 98-107 [facility] Eosinophils/100 WBC (Bld) 4.2 % 0-5 [facility] Glucose [Mass/Vol] 116 mg/dL 74-106 [facility] Comment on above: Fasting Glucose resu lt from 100 to 125 mg/dL suggests IMPAIRED HOMEOSTASIS per A.D.A. criteria. Neutrophils (Bld) [#/Vol] 4.1 10*3/uL 2.0-7.7 [facility] Neutrophils/100 WBC (Bld) 62.8 % 47-70 [facility] Potassium [Moles/Vol] 3.9 mmol/L 3.5-5.1 [facility] Protein [Mass/Vol] 7.9 g/dL 6.4-8.2 [facility] Sodium [Moles/Vol] 141 mmol/L 136-145 [facility] WBC (Bld) [#/Vol] 6.6 10*3/uL 4.4-11.0 [facility] Blood erythrocytes count (nu mber/volume)Ordered By: Dr. Delgado on 09-06-2022 RBC (Bld) [#/Vol] 5.03 10*6/uL 4.6-6.2 [facility] Blood hemoglobin measurement (mass/volume)Ordered By: Dr. Delgado on 09-06-2022 Hemoglobin (Bld) [Mass/Vol] 15.2 g/dL 13.0-16.5 [facility] Blood lymphocytes/100 leukoc ytesOrdered By: Dr. Delgado on 09-06-2022 Lymphocytes/100 WBC (Bld) 21.1 % 19-41 [facility] Blood monocytes/100 leukocyt esOrdered By: Dr. Delgado on 09-06-2022 Monocytes/100 WBC (Bld) 10.8 % 0-10 [facility] Blood platelet mean volumeOr dered By: Dr. Delgado on 09-06-2022 Platelet mean volume (Bld) [Entitic vol] 9.8 fL 6.2-12.0 [facility] Determination of erythrocyte mean corpuscular volume (MCV)Ordered By: Dr. Delgado on 09-06-2022 MCV (RBC) [Entitic vol] 90.3 fL 80-94 [facility] Hematocrit Auto (Bld) [Volum e fraction]Ordered By: Dr. Delgado on 09-06-2022 Hematocrit (Bld) [Volume fraction] 45.4 % 40-54 [facility] Hemoglobin in reticulocytes (mass per reticulocyte)Ordered By: Dr. eDlgado on 09-06-2022 Hemoglobin (Reticulocytes) [Entitic mass] 33.1 pg 30-35 [facility] - Chemistry and C hemistry - challengeOrdered By: Dr. Delgado on 09-06-2022 ALP [Catalytic activity/Vol] 70 U/L 45-117 [facility] ALT [Catalytic activity/Vol] 37 U/L 16-61 [facility] CO2 [Moles/Vol] 28.0 mmol/L 21.0-32.0 [facility] Globulin (S) [Mass/Vol] 3.9 g/dL 2.2-4.2 [facility] Magnesium [Mass/Vol] 2.1 mg/dL 1.6-2.6 [facility] Urea nitrogen/Creatinine [Mass ratio] 15.3 mg/mg 10-20 [facility] - Hematology and Cell countsOrdered By: Dr. Delgado on 09-06-2022 Erythrocyte distribution width (RBC) [Entitic vol] 43.3 fL 35.1-43.9 [facility] Erythrocyte distribution width (RBC) [Ratio] 13.2 % 11.6-14.6 [facility] Immature granulocytes/100 WBC (Bld) 0.300 % 0.0-0.9 [facility] Comment on above: IG% - Immature Granu locytes (promyelocytes, myelocytes and metamyelocytes) > 1% indicates that a LEFT SHIFT is Present. MCH (RBC) [Entitic mass] 30.2 pg 27.0-32.0 [facility] Nucleated RBC/100 WBC (Bld) [Ratio] 0 % 0-5 [facility] MCHC Auto (RBC) [Mass/Vol]Or dered By: Dr. Delgado on 09-06-2022 MCHC (RBC) [Mass/Vol] 33.5 g/dL 32-36 [facility] No Panel InformationOrdered By: Dr. Delgado on 09-06-2022 Estimated Creatinine Clearance Calc 91.38 ml/min [facility] Estimated GFR (MDRD) Amer 108 mL/min >60 [facility] Comment on above: GFR Calc Estimated GFR (MDRD) Non-Af Amer 89 mL/min >60 [facility] Comment on above: Non- GFR Calc Immature Reticulocyte Fraction 5.70 % 3.00-15.90 [facility] Reticulocyte Count 0.95 % 0.5-1.5 [facility] Platelets bldOrdered By: Dr. Delgado on 09-06-2022 Platelets (Bld) [#/Vol] 233 10*3/uL 150-450 [facility] Serum or plasma albumin mary urement (mass/volume)Ordered By: Dr. Delgado on 09-06-2022 Albumin [Mass/Vol] 4.0 g/dL 3.2-5.0 [facility] Serum or plasma albumin/glob ulin mass ratioOrdered By: Dr. Delgado on 09-06-2022 Albumin/Globulin [Mass ratio] 1.0 {ratio} 0.9-2.4 [facility] Serum or plasma calcium mary urement (mass/volume)Ordered By: Dr. Delgado on 09-06-2022 Calcium [Mass/Vol] 9.0 mg/dL 8.5-10.1 [facility] Serum or plasma creatinine m easurement (mass/volume)Ordered By: Dr. Delgado on 09-06-2022 Creatinine [Mass/Vol] 0.92 mg/dL 0.70-1.30 [facility] Comment on above: The validity of the calculated GFR & GFRAA in patients over 70 years has not been determined. Clinical correlation is essential. Serum or plasma urea nitroge n measurement (mass/volume)Ordered By: Dr. Delgado on 09-06-2022 Urea nitrogen [Mass/Vol] 14 mg/dL 7-18 [facility] Thin prep Papanicolaou smear with manual screeningOrdered By: Dr. Delgado on 09-06-2022 Thin prep Papanicolaou smear with manual screening 24 U/L 15-37 [facility] Thin prep Papanicolaou smear with manual screening 5 5-15 [facility] Absolute lymphocyte countOrd ered By: Dr. Delgado on 08-23-2022 Lymphocytes Auto (Unsp spec) [#/Vol] 1.39 10*3/uL 0.83-4.51 [facility] Basophil percentageOrdered B y: Dr. Delgado on 08-23-2022 Basophil percentage 2.9 mg/dL 2.5-4.9 [facility] Basophils/100 WBC (Bld) 0.7 % 0-1 [facility] Bilirubin [Mass/Vol] 0.50 mg/dL 0.20-1.00 [facility] Comment on above: For patients on eltr ombopag therapy, use of Dimension [place] TBIL is not recommended. Chloride [Moles/Vol] 105 mmol/L 98-107 [facility] Eosinophils/100 WBC (Bld) 4.0 % 0-5 [facility] Glucose [Mass/Vol] 155 mg/dL 74-106 [facility] Comment on above: Fasting Glucose resu lt greater than or equal to 126 mg/dL suggests DIABETES MELLITUS per A.D.A. criteria. Neutrophils (Bld) [#/Vol] 4.9 10*3/uL 2.0-7.7 [facility] Neutrophils/100 WBC (Bld) 67.0 % 47-70 [facility] Potassium [Moles/Vol] 3.9 mmol/L 3.5-5.1 [facility] Protein [Mass/Vol] 8.3 g/dL 6.4-8.2 [facility] Sodium [Moles/Vol] 140 mmol/L 136-145 [facility] WBC (Bld) [#/Vol] 7.3 10*3/uL 4.4-11.0 [facility] Blood erythrocytes count (nu mber/volume)Ordered By: Dr. Delgado on 08-23-2022 RBC (Bld) [#/Vol] 5.30 10*6/uL 4.6-6.2 [facility] Blood hemoglobin measurement (mass/volume)Ordered By: Dr. Delgado on 08-23-2022 Hemoglobin (Bld) [Mass/Vol] 16.2 g/dL 13.0-16.5 [facility] Blood lymphocytes/100 leukoc ytesOrdered By: Dr. Delgado on 08-23-2022 Lymphocytes/100 WBC (Bld) 19.1 % 19-41 [facility] Blood monocytes/100 leukocyt esOrdered By: Dr. Delgado on 08-23-2022 Monocytes/100 WBC (Bld) 9.1 % 0-10 [facility] Blood platelet mean volumeOr dered By: Dr. Delgado on 08-23-2022 Platelet mean volume (Bld) [Entitic vol] 10.2 fL 6.2-12.0 [facility] Determination of erythrocyte mean corpuscular volume (MCV)Ordered By: Dr. Delgado on 08-23-2022 MCV (RBC) [Entitic vol] 90.8 fL 80-94 [facility] Hematocrit Auto (Bld) [Volum e fraction]Ordered By: Dr. Delgado on 08-23-2022 Hematocrit (Bld) [Volume fraction] 48.1 % 40-54 [facility] Hemoglobin in reticulocytes (mass per reticulocyte)Ordered By: Dr. Delgado on 08-23-2022 Hemoglobin (Reticulocytes) [Entitic mass] 32.3 pg 30-35 [facility] - Chemistry and C hemistry - challengeOrdered By: Dr. Delgado on 08-23-2022 ALP [Catalytic activity/Vol] 82 U/L 45-117 [facility] ALT [Catalytic activity/Vol] 26 U/L 16-61 [facility] CO2 [Moles/Vol] 28.0 mmol/L 21.0-32.0 [facility] Globulin (S) [Mass/Vol] 4.0 g/dL 2.2-4.2 [facility] Magnesium [Mass/Vol] 2.1 mg/dL 1.6-2.6 [facility] Urea nitrogen/Creatinine [Mass ratio] 9.8 mg/mg 10-20 [facility] - Hematology and Cell countsOrdered By: Dr. Delgado on 08-23-2022 Erythrocyte distribution width (RBC) [Entitic vol] 43.3 fL 35.1-43.9 [facility] Erythrocyte distribution width (RBC) [Ratio] 13.0 % 11.6-14.6 [facility] Immature granulocytes/100 WBC (Bld) 0.100 % 0.0-0.9 [facility] Comment on above: IG% - Immature Granu locytes (promyelocytes, myelocytes and metamyelocytes) > 1% indicates that a LEFT SHIFT is Present. MCH (RBC) [Entitic mass] 30.6 pg 27.0-32.0 [facility] Nucleated RBC/100 WBC (Bld) [Ratio] 0 % 0-5 [facility] MCHC Auto (RBC) [Mass/Vol]Or dered By: Dr. Delgado on 08-23-2022 MCHC (RBC) [Mass/Vol] 33.7 g/dL 32-36 [facility] No Panel InformationOrdered By: Dr. Delgado on 08-23-2022 Estimated Creatinine Clearance Calc 82.42 ml/min [facility] Estimated GFR (MDRD) Amer 95 mL/min >60 [facility] Comment on above: GFR Calc Estimated GFR (MDRD) Non-Af Amer 79 mL/min >60 [facility] Comment on above: Non- GFR Calc Immature Reticulocyte Fraction 1.60 % 3.00-15.90 [facility] Reticulocyte Count 0.80 % 0.5-1.5 [facility] Platelets bldOrdered By: Dr. Delgado on 08-23-2022 Platelets (Bld) [#/Vol] 230 10*3/uL 150-450 [facility] Serum or plasma albumin mary urement (mass/volume)Ordered By: Dr. Delgado on 08-23-2022 Albumin [Mass/Vol] 4.3 g/dL 3.2-5.0 [facility] Serum or plasma albumin/glob ulin mass ratioOrdered By: Dr. Delgado on 08-23-2022 Albumin/Globulin [Mass ratio] 1.1 {ratio} 0.9-2.4 [facility] Serum or plasma calcium mary urement (mass/volume)Ordered By: Dr. Delgado on 08-23-2022 Calcium [Mass/Vol] 9.1 mg/dL 8.5-10.1 [facility] Serum or plasma creatinine m easurement (mass/volume)Ordered By: Dr. Delgado on 08-23-2022 Creatinine [Mass/Vol] 1.02 mg/dL 0.70-1.30 [facility] Comment on above: The validity of the calculated GFR & GFRAA in patients over 70 years has not been determined. Clinical correlation is essential. Serum or plasma urea nitroge n measurement (mass/volume)Ordered By: Dr. Delgado on 08-23-2022 Urea nitrogen [Mass/Vol] 10 mg/dL 7-18 [facility] Thin prep Papanicolaou smear with manual screeningOrdered By: Dr. Delgado on 08-23-2022 Thin prep Papanicolaou smear with manual screening 22 U/L 15-37 [facility] Thin prep Papanicolaou smear with manual screening 7 5-15 [facility] Absolute lymphocyte countOrd ered By: Dr. Deglado on 08-16-2022 Lymphocytes Auto (Unsp spec) [#/Vol] 1.25 10*3/uL 0.83-4.51 [facility] Basophil percentageOrdered B y: Dr. Delgado on 08-16-2022 Basophils/100 WBC (Bld) 1.1 % 0-1 [facility] Bilirubin [Mass/Vol] 0.40 mg/dL 0.20-1.00 [facility] Comment on above: For patients on eltr ombopag therapy, use of Dimension [place] TBIL is not recommended. Chloride [Moles/Vol] 105 mmol/L 98-107 [facility] Eosinophils/100 WBC (Bld) 5.6 % 0-5 [facility] Glucose [Mass/Vol] 101 mg/dL 74-106 [facility] Comment on above: Fasting Glucose resu lt from 100 to 125 mg/dL suggests IMPAIRED HOMEOSTASIS per A.D.A. criteria. Neutrophils (Bld) [#/Vol] 4.1 10*3/uL 2.0-7.7 [facility] Neutrophils/100 WBC (Bld) 61.5 % 47-70 [facility] Potassium [Moles/Vol] 4.1 mmol/L 3.5-5.1 [facility] Protein [Mass/Vol] 7.6 g/dL 6.4-8.2 [facility] Sodium [Moles/Vol] 140 mmol/L 136-145 [facility] WBC (Bld) [#/Vol] 6.6 10*3/uL 4.4-11.0 [facility] Blood erythrocytes count (nu mber/volume)Ordered By: Dr. Delgado on 08-16-2022 RBC (Bld) [#/Vol] 5.16 10*6/uL 4.6-6.2 [facility] Blood hemoglobin measurement (mass/volume)Ordered By: Dr. Delgado on 08-16-2022 Hemoglobin (Bld) [Mass/Vol] 15.6 g/dL 13.0-16.5 [facility] Blood lymphocytes/100 leukoc ytesOrdered By: Dr. Delgado on 08-16-2022 Lymphocytes/100 WBC (Bld) 18.9 % 19-41 [facility] Blood monocytes/100 leukocyt esOrdered By: Dr. Delgado on 08-16-2022 Monocytes/100 WBC (Bld) 12.7 % 0-10 [facility] Blood platelet mean volumeOr dered By: Dr. Delgado on 08-16-2022 Platelet mean volume (Bld) [Entitic vol] 10.1 fL 6.2-12.0 [facility] Determination of erythrocyte mean corpuscular volume (MCV)Ordered By: Dr. Delgado on 08-16-2022 MCV (RBC) [Entitic vol] 91.9 fL 80-94 [facility] Hematocrit Auto (Bld) [Volum e fraction]Ordered By: Dr. Delgado on 08-16-2022 Hematocrit (Bld) [Volume fraction] 47.4 % 40-54 [facility] Hemoglobin in reticulocytes (mass per reticulocyte)Ordered By: Dr. Delgado on 08-16-2022 Hemoglobin (Reticulocytes) [Entitic mass] 33.7 pg 30-35 [facility] Laboratory - Chemistry and C hemistry - challengeOrdered By: Dr. Delgado on 08-16-2022 ALP [Catalytic activity/Vol] 68 U/L 45-117 [facility] ALT [Catalytic activity/Vol] 25 U/L 16-61 [facility] CO2 [Moles/Vol] 29.0 mmol/L 21.0-32.0 [facility] Globulin (S) [Mass/Vol] 3.7 g/dL 2.2-4.2 [facility] Urea nitrogen/Creatinine [Mass ratio] 13.8 mg/mg 10-20 [facility] - Hematology and Cell countsOrdered By: Dr. Delgado on 08-16-2022 Erythrocyte distribution width (RBC) [Entitic vol] 44.0 fL 35.1-43.9 [facility] Erythrocyte distribution width (RBC) [Ratio] 13.0 % 11.6-14.6 [facility] Immature granulocytes/100 WBC (Bld) 0.200 % 0.0-0.9 [facility] Comment on above: IG% - Immature Granu locytes (promyelocytes, myelocytes and metamyelocytes) > 1% indicates that a LEFT SHIFT is Present. MCH (RBC) [Entitic mass] 30.2 pg 27.0-32.0 [facility] Nucleated RBC/100 WBC (Bld) [Ratio] 0 % 0-5 [facility] MCHC Auto (RBC) [Mass/Vol]Or dered By: Dr. Delgado on 08-16-2022 MCHC (RBC) [Mass/Vol] 32.9 g/dL 32-36 [facility] No Panel InformationOrdered By: Dr. Delgado on 08-16-2022 Estimated Creatinine Clearance Calc 96.63 ml/min [facility] Estimated GFR (MDRD) Amer 115 mL/min >60 [facility] Comment on above: GFR Calc Estimated GFR (MDRD) Non-Af Amer 95 mL/min >60 [facility] Comment on above: Non- GFR Calc Immature Reticulocyte Fraction 6.00 % 3.00-15.90 [facility] Reticulocyte Count 0.88 % 0.5-1.5 [facility] Platelets bldOrdered By: Dr. Delgado on 08-16-2022 Platelets (Bld) [#/Vol] 227 10*3/uL 150-450 [facility] Serum or plasma albumin mary urement (mass/volume)Ordered By: Dr. Delgado on 08-16-2022 Albumin [Mass/Vol] 3.9 g/dL 3.2-5.0 [facility] Serum or plasma albumin/glob ulin mass ratioOrdered By: Dr. Delgado on 08-16-2022 Albumin/Globulin [Mass ratio] 1.1 {ratio} 0.9-2.4 [facility] Serum or plasma calcium mary urement (mass/volume)Ordered By: Dr. Delgado on 08-16-2022 Calcium [Mass/Vol] 8.9 mg/dL 8.5-10.1 [facility] Serum or plasma creatinine m easurement (mass/volume)Ordered By: Dr. Delgado on 08-16-2022 Creatinine [Mass/Vol] 0.87 mg/dL 0.70-1.30 [facility] Comment on above: The validity of the calculated GFR & GFRAA in patients over 70 years has not been determined. Clinical correlation is essential. Serum or plasma urea nitroge n measurement (mass/volume)Ordered By: Dr. Delgado on 08-16-2022 Urea nitrogen [Mass/Vol] 12 mg/dL 7-18 [facility] Thin prep Papanicolaou smear with manual screeningOrdered By: Dr. Delgado on 08-16-2022 Thin prep Papanicolaou smear with manual screening 19 U/L 15-37 [facility] Thin prep Papanicolaou smear with manual screening 6 5-15 [facility] No Panel InformationOrdered By: Dr. Delgado on 08-08-2022 Miscellaneous Test See comment [facility] Comment on above: TEST RESULT LIMITSBC R-ABL1, CML/ALL, PCR, Quant e13a2 (b2a2) transcript 0.0840 % e14a2 (b3a2) transcript % <0.0032 % e1a2 transcript % <0.0032 %Interpretation: Positive POSITIVE for the BCR-ABL1 e13a2 (b2a2, p210) fusion transcript.Director Arlene Mckeon, PhD, FACMGDirector, Molecular OncologyLabco Center for Molecular Biology [place], [place] [phone] assay can detect three different types of [...] developed and its performance characteristics determined by [employer]. It has not been cleared or approved by the Food and Drug Administration. TESTING PERFORMED AT [facility]. ORIGINAL REPORT ON FILE IN LAB CONTAINS ADDITIONAL TEST SITE INFORMATION. Blood Glucose , Office ([phone])Ordered By: Juanito Wells on 06-28-2022 Glucose Glucometer (BldC) [Moles/Vol] 91 1 Normal [facility] Work Phone: HgA1C , Office ([phone])Ordere d By: Juanito Wells on 06-28-2022 HbA1c (Bld) [Mass fraction] 6.3 % Normal 4.6 - 7.1 [facility] Work Phone: No Panel InformationOrdered By: Dr. Delgado on 06-20-2022 Miscellaneous Test See comment [facility] Comment on above: TEST RESULT LIMITSBC R-ABL1, CML/ALL, PCR, [id number] (b2a2) transcript 0.1436 %e14a2 (b3a2) transcript % <0.0032 %e1a2 transcript % <0.0032 %Interpretation: Positive POSITIVE for the BCR-ABL1 e13a2 (b2a2, p210) fusion transcript.Director Arlene Mckeon, PhD, FACMGDirector, Molecular OncologyLabco [facility] for Molecular Biology and [place], [place] [phone] assay can detect three different types of [...] developed and its performance characteristics determined by [employer]. It has not been cleared or approved by the Food and Drug Administration. TESTING PERFORMED AT [facility]. ORIGINAL REPORT ON FILE IN LAB CONTAINS ADDITIONAL TEST SITE INFORMATION. Anaerobic cultureOrdered By: Dr. Kent on 06-12-2022 Bacteria identified Anaer cx Nom (Unsp spec) No growth in 5 days. [facility] Bacterial body fluid culture Ordered By: Dr. Kent on 06-08-2022 Bacteria identified Cx Nom (Body fld) No growth aerobically. [facility] - Microbiology an d Antimicrobial susceptibilityOrdered By: Dr. Kent on 06-08-2022 Bacteria identified Cx Nom (Bld) No growth in [address] [facility] [address] HEAD OR BRAIN WITHOUT CON [...] SatJun 05, 2022 6:33:39 PM EST Normal [facility] Comment on above: Order Comment: Injur y/Trauma [...] on SatJun 05, 2022 6:30:47 PM EST [facility] Comment on above: Order Comment: Injur [...] on SatJun 05, 2022 6:25:11 PM EST [facility] Comment on above: Order Comment: Injur y/Trauma or Illness?:Illness/Other How long have you had these symptoms (acute/chronic)?:Acute Reason for exam?:syncope History of cancer?:no Surgeries, chemotherapy, or radiation?:no Type of Exam?:Initial Additional signs and symptoms?:no Basophil percentageOrdered B y: Dr. Kent on 06-04-2022 Bilirubin [Mass/Vol] 0.50 mg/dL 0.20-1.[address] [facility] Comment on above: For patients on eltr ombopag therapy, use of Dimension [place] TBIL is not recommended. Protein [Mass/Vol] 7.8 g/dL 6.4-8.2 [facility] Body fluid appearanceOrdered By: Dr. Kent on 06-04-2022 Appearance (Body fld) SL CLDY [facility] Body fluid color determinati onOrdered By: Dr. Kent on 06-04-2022 Color (Body fld) YELLOW [facility] Body fluid lactate dehydroge nase measurement (enzymatic activity/volume) by pyruvateOrdered By: Dr. Kent on 06-04-2022 LDH Pyruvate to lactate reaction (Body fld) [Catalytic activity/Vol] 136 Units/l Not Establ. [facility] Body fluid leukocytes count (number/volume)Ordered By: Dr. Kent on 06-04-2022 WBC (Body fld) [#/Vol] 7.217 10*3/uL [facility] WBC (Body fld) [#/Vol] 0.042 10*3/uL [facility] Body fluid lymphocytes/100 l eukocytesOrdered By: Dr. Kent on 06-04-2022 Lymphocytes/100 WBC (Body fld) 88 % [facility] Body fluid macrophage countO rdered By: Dr. Kent on 06-04-2022 Macrophages (Body fld) [#/Vol] 5 % [facility] Body fluid mesothelial cell percentageOrdered By: Dr. Kent on 06-04-2022 Mesothelial cells/100 WBC (Body fld) 6 % [facility] Body fluid protein measureme nt (mass/volume)Ordered By: Dr. Kent on 06-04-2022 Protein (Body fld) [Mass/Vol] 4.4 g/dL Not Establ. [facility] Body fluid segmented neutrop hils count (number/volume)Ordered By: Dr. Kent on 06-04-2022 Segmented neutrophils (Body fld) [#/Vol] 0 % [facility] Cytology report of Body flui d Cyto stainOrdered By: Dr. Kent on 06-04-2022 Cytology report Cyto stain Doc (Body fld) SEE PATHOLOGY REPORT [facility] Comment on above: Specimen submitted t o Anatomical Pathology Department for testing. Direct bilirubinOrdered By: Dr. Kent on 06-04-2022 Bilirubin.direct [Mass/Vol] 0.08 mg/dL 0.00-0.30 [facility] Erythrocytes [#/volume] in B john fluid by Automated countOrdered By: Dr. Kent on 06-04-2022 RBC Auto (Body fld) [#/Vol] 0.003 10^6/ul [facility] Gram stain for investigation of transfusion reactionOrdered By: Dr. Kent on 06-04-2022 Microscopic observation Gram stain Nom (Unsp spec) [facility] - Chemistry and C hemistry - challengeOrdered By: Dr. Kent on 06-04-2022 ALP [Catalytic activity/Vol] 76 U/L 45-117 [facility] ALT [Catalytic activity/Vol] 27 U/L 16-61 [facility] Globulin (S) [Mass/Vol] 3.9 g/dL 2.2-4.2 [facility] Mononuclear cells Auto (Body fld) [#/Vol]Ordered By: Dr. Kent on 06-04-2022 Mononuclear cells (Body fld) [#/Vol] 7.175 10*3/uL [facility] No Panel InformationOrdered By: Dr. Kent on 06-04-2022 Body Fluid Comment 2 SEE COMMENT [facility] Comment on above: .INTERPRETATION OF R ESULTS: Differentiation of transudate and exudate fluid: TRANSUDATE EXUDATE Color- Clear,straw colored Clear,turbid,bloody,purulent RBCs- Usually none to few Often present in high numbers WBCs- Usually none to few Often present in high numbers DIFF Few lymphocytes or Lymphocytes, neutrophils, andCount- mesothelial cells. polymorphonuclear cells . Body Fluid Mononuclear WBCs (%) 99.4 % [facility] Body Fluid Pathologist Comment Reviewed [facility] Comment on above: Previous reported re sult: May follow Edited by: YELENA on 06/05/22:1459Consistent with lympocytic effusion.Negative for malignant cells.Please also refer to cytology report [id number] Tinoco M.D. 06/05/22 AMENDED REPORT 06/05/22 1459 PATH COMM/BF previously reported as: May follow Body Fluid Polynuclear WBCs (%) 0.6 % [facility] No Panel Informationon 06-04 Body Fluid Pathologist Comment May follow [facility] Work Phone: Serum or plasma albumin mary urement (mass/volume)Ordered By: Dr. Kent on 06-04-2022 Albumin [Mass/Vol] 3.9 g/dL 3.2-5.0 [facility] Specimen source identificati on of body fluidOrdered By: Dr. Kent on 06-04-2022 Specimen source Nom (Body fld) THORACENTESIS [facility] Thin prep Papanicolaou smear with manual screeningOrdered By: Dr. Kent on 06-04-2022 Thin prep Papanicolaou smear with manual screening 1 % [facility] Thin prep Papanicolaou smear with manual screening 28 U/L 15-37 [facility] Comment on above: Slight Hemolysis, Re sult may be falsely increased. Thin prep Papanicolaou smear with manual screening 242 U/L 87-241 [facility] Comment on above: Slight Hemolysis, Re sult may be falsely increased. Total cell countOrdered By: Dr. Kent on 06-04-2022 Cells counted [employer] (Bld/Tiss) [#] 7.388 10^3/ul [facility] Comment on above: This is the Total Nu mber of Nucleated Cell Types in the Body Fluid. Absolute lymphocyte countOrd ered By: Dr. Kent on 06-03-2022 Lymphocytes Auto (Unsp spec) [#/Vol] 1.00 10*3/uL 0.83-4.51 [facility] Basophil percentageOrdered B y: Dr. Kent on 06-03-2022 Basophil percentage 0 SEEN /hpf 0-5 [facility] Basophils/100 WBC (Bld) 0.7 % 0-1 [facility] Chloride [Moles/Vol] 105 mmol/L 98-107 [facility] Eosinophils/100 WBC (Bld) 4.5 % 0-5 [facility] Glucose [Mass/Vol] 110 mg/dL 74-106 [facility] Comment on above: Fasting Glucose resu lt from 100 to 125 mg/dL suggests IMPAIRED HOMEOSTASIS per A.D.A. criteria. Lactate [Moles/Vol] 1.3 mmol/L 0.4-2.0 [facility] Neutrophils (Bld) [#/Vol] 5.2 10*3/uL 2.0-7.7 [facility] Neutrophils/100 WBC (Bld) 70.8 % 47-70 [facility] Potassium [Moles/Vol] 4.3 mmol/L 3.5-5.1 [facility] Sodium [Moles/Vol] 139 mmol/L 136-145 [facility] WBC (Bld) [#/Vol] 7.3 10*3/uL 4.4-11.0 [facility] Bilirubin Test strip Ql (U)O rdered By: Dr. Kent on 06-03-2022 Bilirubin Ql (U) Negative Negative [facility] Blood erythrocytes count (nu mber/volume)Ordered By: Dr. Kent on 06-03-2022 RBC (Bld) [#/Vol] 5.06 10*6/uL 4.6-6.2 [facility] Blood hemoglobin measurement (mass/volume)Ordered By: Dr. Kent on 06-03-2022 Hemoglobin (Bld) [Mass/Vol] 15.5 g/dL 13.0-16.5 [facility] Blood lymphocytes/100 leukoc ytesOrdered By: Dr. Kent on 06-03-2022 Lymphocytes/100 WBC (Bld) 13.6 % 19-41 [facility] Blood monocytes/100 leukocyt esOrdered By: Dr. Kent on 06-03-2022 Monocytes/100 WBC (Bld) 10.1 % 0-10 [facility] Blood platelet mean volumeOr dered By: Dr. Kent on 06-03-2022 Platelet mean volume (Bld) [Entitic vol] 9.6 fL 6.2-12.0 [facility] Determination of erythrocyte mean corpuscular volume (MCV)Ordered By: Dr. Kent on 06-03-2022 MCV (RBC) [Entitic vol] 92.3 fL 80-94 [facility] Hematocrit Auto (Bld) [Volum e fraction]Ordered By: Dr. Kent on 06-03-2022 Hematocrit (Bld) [Volume fraction] 46.7 % 40-54 [facility] Influenza virus A and B and SARS-CoV-2 (COVID-19) Ag panel - Upper respiratory specimOrdered By: Dr. Kent on 06-03-2022 SARS-CoV-2 (COVID-19) RNA CRAIG+probe Ql (Resp) [facility] Ketones Test strip Ql (U)Ord ered By: Dr. Kent on 06-03-2022 Ketones Ql (U) Negative Negative [facility] - Chemistry and C hemistry - challengeOrdered By: Dr. Kent on 06-03-2022 CO2 [Moles/Vol] 27.0 mmol/L 21.0-32.0 [facility] Natriuretic peptide B (Bld) [Mass/Vol] 38.5 pg/mL 0-100 [facility] Urea nitrogen/Creatinine [Mass ratio] 12.9 mg/mg 10-20 [facility] - Hematology and Cell countsOrdered By: Dr. Kent on 06-03-2022 Erythrocyte distribution width (RBC) [Entitic vol] 45.1 fL 35.1-43.9 [facility] Erythrocyte distribution width (RBC) [Ratio] 13.3 % 11.6-14.6 [facility] Immature granulocytes/100 WBC (Bld) 0.300 % 0.0-0.9 [facility] Comment on above: IG% - Immature Granu locytes (promyelocytes, myelocytes and metamyelocytes) > 1% indicates that a LEFT SHIFT is Present. MCH (RBC) [Entitic mass] 30.6 pg 27.0-32.0 [facility] Nucleated RBC/100 WBC (Bld) [Ratio] 0 % 0-5 [facility] MCHC Auto (RBC) [Mass/Vol]Or dered By: Dr. Kent on 06-03-2022 MCHC (RBC) [Mass/Vol] 33.2 g/dL 32-36 [facility] Mucus LM Ql (Urine sed)Order ed By: Dr. Kent on 06-03-2022 Mucus Ql (Urine sed) 0 SEEN /hpf [facility] Nitrite Test strip Ql (U)Ord ered By: Dr. Kent on 06-03-2022 Nitrite Ql (U) Negative Negative [facility] No Panel InformationOrdered By: Dr. Kent on 06-03-2022 Estimated Creatinine Clearance Calc 121.63 ml/min [facility] Estimated GFR (MDRD) Amer 148 mL/min >60 [facility] Comment on above: GFR Calc Estimated GFR (MDRD) Non-Af Amer 122 mL/min >60 [facility] Comment on above: Non- GFR Calc Troponin I High Sensitivity < 3 pg/mL 3.0-78.0 [facility] Comment on above: Please Note: New Keshia t Units and Gender Specific Reference Ranges. For more information see Policy Stat Procedure [place] High Sensitivity Troponin (TNIH) and attachments. Platelets bldOrdered By: Dr. Kent on 06-03-2022 Platelets (Bld) [#/Vol] 251 10*3/uL 150-450 [facility] Protein Test strip Ql (U)Ord ered By: Dr. Kent on 06-03-2022 Protein Ql (U) 15 mg/dl Negative [facility] Serum or plasma calcium mary urement (mass/volume)Ordered By: Dr. Kent on 06-03-2022 Calcium [Mass/Vol] 9.2 mg/dL 8.5-10.1 [facility] Serum or plasma creatinine m easurement (mass/volume)Ordered By: Dr. Kent on 06-03-2022 Creatinine [Mass/Vol] 0.70 mg/dL 0.70-1.30 [facility] Comment on above: The validity of the calculated GFR & GFRAA in patients over 70 years has not been determined. Clinical correlation is essential. Serum or plasma urea nitroge n measurement (mass/volume)Ordered By: Dr. Kent on 06-03-2022 Urea nitrogen [Mass/Vol] 9 mg/dL 7-18 [facility] Squamous epithelial cells de tection in urine sediment by light microscopyOrdered By: Dr. Kent on 06-03-2022 Epithelial cells.squamous LM Ql (Urine sed) 0 SEEN /hpf 0-5 [facility] Thin prep Papanicolaou smear with manual screeningOrdered By: Dr. Kent on 11-13-2022 Thin prep Papanicolaou smear with manual screening 7 5-15 [facility] Urine blood detectionOrdered By: Dr. Kent on 06-03-2022 RBC Ql (U) Negative Negative [facility] RBC Ql (U) 0 SEEN /hpf 0-5 [facility] Urine clarityOrdered By: Dr. Kent on 06-03-2022 Clarity (U) Clear Clear [facility] Urine color determinationOrd ered By: Dr. Kent on 06-03-2022 Color (U) Yellow Yellow [facility] Urine glucose detectionOrder ed By: Dr. Kent on 06-03-2022 Glucose Ql (U) Normal mg/dl Normal [facility] Urine leukocyte esterase det ection by dipstickOrdered By: Dr. Kent on 06-03-2022 Leukocyte esterase Test strip Ql (U) Negative Negative [facility] Urine pHOrdered By: Dr. Cathy castañeda on 06-03-2022 pH (U) 7.0 [pH] 5.0 - 8.0 [facility] Urine sediment bacteria coun t by microscopy (number/high power field)Ordered By: Dr. Kent on 06-03-2022 Bacteria LM.HPF (Urine sed) [#/Area] 0 /[HPF] None Seen [facility] Urine specific gravity measu rementOrdered By: Dr. Kent on 06-03-2022 Specific gravity (U) [Rel density] 1.010 1.002-1.03 0 [facility] Urobilinogen Auto test strip Ql (U)Ordered By: Dr. Kent on 06-03-2022 Urobilinogen Ql (U) Normal mg/dl Normal [facility] Absolute lymphocyte counton 03-22-2022 Lymphocytes Auto (Unsp spec) [#/Vol] 1.49 10*3/uL 0.83-4.51 [facility] Work Phone: Basophil percentageon 2021 Basophils/100 WBC (Bld) 0.9 % 0-1 [facility] Work Phone: Bilirubin [Mass/Vol] 0.50 mg/dL 0.20-1.00 [facility] Work Phone: Comment on above: For patients on eltr ombopag therapy, use of Dimension [place] TBIL is not recommended. Chloride [Moles/Vol] 106 mmol/L 98-107 [facility] Work Phone: Eosinophils/100 WBC (Bld) 6.5 % 0-5 [facility] Work Phone: Glucose [Mass/Vol] 110 mg/dL 74-106 [facility] Work Phone: Comment on above: Fasting Glucose resu lt from 100 to 125 mg/dL suggests IMPAIRED HOMEOSTASIS per A.D.A. criteria. Neutrophils (Bld) [#/Vol] 3.1 10*3/uL 2.0-7.7 [facility] Work Phone: Neutrophils/100 WBC (Bld) 56.6 % 47-70 [facility] Work Phone: Potassium [Moles/Vol] 3.9 mmol/L 3.5-5.1 [facility] Work Phone: Protein [Mass/Vol] 7.5 g/dL 6.4-8.2 [facility] Work Phone: Sodium [Moles/Vol] 138 mmol/L 136-145 [facility] Work Phone: WBC (Bld) [#/Vol] 5.5 10*3/uL 4.4-11.0 [facility] Work Phone: Blood erythrocytes count (nu mber/volume)on 03-22-2022 RBC (Bld) [#/Vol] 4.68 10*6/uL 4.6-6.2 [facility] Work Phone: Blood hemoglobin measurement (mass/volume)on 03-22-2022 Hemoglobin (Bld) [Mass/Vol] 14.4 g/dL 13.0-16.5 [facility] Work Phone: Blood lymphocytes/100 leukoc yteson 03-22-2022 Lymphocytes/100 WBC (Bld) 27.1 % 19-41 [facility] Work Phone: Blood monocytes/100 leukocyt eson 03-22-2022 Monocytes/100 WBC (Bld) 8.7 % 0-10 [facility] Work Phone: Blood platelet mean volumeon 03-22-2022 Platelet mean volume (Bld) [Entitic vol] 9.3 fL 6.2-12.0 [facility] Work Phone: Determination of erythrocyte mean corpuscular volume (MCV)on 03-22-2022 MCV (RBC) [Entitic vol] 93.2 fL 80-94 [facility] Work Phone: Hematocrit Auto (Bld) [Volum e fraction]on 03-22-2022 Hematocrit (Bld) [Volume fraction] 43.6 % 40-54 [facility] Work Phone: Laboratory - Chemistry and C hemistry - challengeon 03-22-2022 ALP [Catalytic activity/Vol] 63 U/L 45-117 [facility] Work Phone: ALT [Catalytic activity/Vol] 36 U/L 16-61 [facility] Work Phone: CO2 [Moles/Vol] 26.0 mmol/L 21.0-32.0 [facility] Work Phone: Globulin (S) [Mass/Vol] 3.7 g/dL 2.2-4.2 [facility] Work Phone: Urea nitrogen/Creatinine [Mass ratio] 13.3 mg/mg 10-20 [facility] Work Phone: Laboratory - Hematology and Cell countson 03-22-2022 Erythrocyte distribution width (RBC) [Entitic vol] 46.8 fL 35.1-43.9 [facility] Work Phone: Erythrocyte distribution width (RBC) [Ratio] 13.7 % 11.6-14.6 [facility] Work Phone: Immature granulocytes/100 WBC (Bld) 0.200 % 0.0-0.9 [facility] Work Phone: Comment on above: IG% - Immature Granu locytes (promyelocytes, myelocytes and metamyelocytes) > 1% indicates that a LEFT SHIFT is Present. MCH (RBC) [Entitic mass] 30.8 pg 27.0-32.0 [facility] Work Phone: Nucleated RBC/100 WBC (Bld) [Ratio] 0 % 0-5 [facility] Work Phone: MCHC Auto (RBC) [Mass/Vol]on 03-22-2022 MCHC (RBC) [Mass/Vol] 33.0 g/dL 32-36 [facility] Work Phone: No Panel Informationon 03-22 Estimated Creatinine Clearance Calc 102.58 ml/min [facility] Work Phone: Estimated GFR (MDRD) Amer 121 mL/min >60 [facility] Work Phone: Comment on above: GFR Calc Estimated GFR (MDRD) Non-Af Amer 100 mL/min >60 [facility] Work Phone: Comment on above: Non- GFR Calc Miscellaneous Test See comment [facility] Work Phone: Comment on above: TEST RESULT LIMITSBCR-ABL1, CML/ALL, PCR, [id number] (b2a2) transcript 0.0561 %e14a2 (b3a2) transcript % <0.0032 %e1a2 transcript % <0.0032 %Interpretation: PositivePOSITIVE for the BCR-ABL1 e13a2 (b2a2, p210) fusion transcript.Director Arlene Mckeon, PhD, FACMGDirector, Molecular OncologyLabcorp Center for Molecular Biology and [place], [place] [phone] assay can detect three different types of [...] developed and its performance characteristics determined by [employer]. It has not been cleared or approved by the Food and Drug Administration. TESTING PERFORMED AT [facility]. ORIGINAL REPORT ON FILE IN LAB CONTAINS ADDITIONAL TEST SITE INFORMATION. Platelets bldon 03-22-2022 Platelets (Bld) [#/Vol] 247 10*3/uL 150-450 [facility] Work Phone: Serum or plasma albumin mary urement (mass/volume)on 03-22-2022 Albumin [Mass/Vol] 3.8 g/dL 3.2-5.0 [facility] Work Phone: Serum or plasma albumin/glob ulin mass ratioon 03-22-2022 Albumin/Globulin [Mass ratio] 1.0 {ratio} 0.9-2.4 [facility] Work Phone: Serum or plasma calcium mary urement (mass/volume)on 03-22-2022 Calcium [Mass/Vol] 8.5 mg/dL 8.5-10.1 [facility] Work Phone: Serum or plasma creatinine m easurement (mass/volume)on 03-22-2022 Creatinine [Mass/Vol] 0.83 mg/dL 0.70-1.30 [facility] Work Phone: Comment on above: The validity of the calculated GFR & GFRAA in patients over 70 years has not been determined. Clinical correlation is essential. Serum or plasma urea nitroge n measurement (mass/volume)on 03-22-2022 Urea nitrogen [Mass/Vol] 11 mg/dL 7-18 [facility] Work Phone: Thin prep Papanicolaou smear with manual screeningon 03-22-2022 Thin prep Papanicolaou smear with manual screening 24 U/L 15-37 [facility] Work Phone: Thin prep Papanicolaou smear with manual screening 6 5-15 [facility] Work Phone: Blood Glucose , Office ([phone])Ordered By: Eufemia Patel on 03-05-2022 Glucose Glucometer (BldC) [Moles/Vol] 136 1 Normal [facility] Work Phone: CBC W/AUTO DIFF WBC ([phone])O rdered By: [employer] Worker on 03-05-2022 Basophils (Bld) [#/Vol] 0.1 10*3/uL Normal 0.0-0.2 [facility]; [facility] Work Phone: Comment on above: PATIENT WAS FASTINGP ERFORMED BY: CB [facility] [id number] [facility] [id number] Basophils/100 WBC (Bld) 1 % Normal C omprehensive [facility]; [facility] Work Phone: Comment on above: PATIENT WAS FASTINGP ERFORMED BY: CB [facility] Vqvhde4692 [facility] [id number] Eosinophils (Bld) [#/Vol] 0.4 10*3/uL Normal 0.0-0.4 [facility]; [facility] Work Phone: Comment on above: PATIENT WAS FASTINGP ERFORMED BY: TONYA [facility] Woscsm2874 [address] RoadDublin [place] [id number] Eosinophils/100 WBC (Bld) 6 % Normal [facility]; [facility] Work Phone: Comment on above: PATIENT WAS FASTINGP ERFORMED BY: CB [facility] Tltrub1040 [address] Roadblin [place] [id number] Erythrocyte distribution width (RBC) [Ratio] 13.3 % Normal 11.6-15.4 [facility]; [facility] Work Phone: Comment on above: PATIENT WAS FASTINGP ERFORMED BY: CB [facility] Zgqsfh7946 [address] Roadblin [place] [id number] Hematocrit (Bld) [Volume fraction] 43.6 % Normal 37.5-51.0 [facility]; [facility] Work Phone: Comment on above: PATIENT WAS FASTINGP ERFORMED BY: CB [facility] Vezsbf4437 [address] RoadDublin [place] [id number] Hemoglobin (Bld) [Mass/Vol] 14.9 g/dL Normal 13.0-17.7 [facility]; [facility] Work Phone: Comment on above: PATIENT WAS FASTINGP ERFORMED BY: CB [facility] Htyazw7959 [address] RoadDublin [place] [id number] Immature granulocytes (Bld) [#/Vol] 0.0 10*3/uL Normal 0.0-0.1 [facility]; [facility] Work Phone: Comment on above: PATIENT WAS FASTINGP ERFORMED BY: CB [facility] Ndyglr5357 [address] RoadDublin [place] [id number] Immature granulocytes/100 WBC (Bld) 0 % Normal [facility]; [facility] Work Phone: Comment on above: PATIENT WAS FASTINGP ERFORMED BY: CB [facility] Uomkry9714 [address] RoadDublin [place] [id number] Lymphocytes (Bld) [#/Vol] 1.5 10*3/uL Normal 0.7-3.1 [facility]; [facility] Work Phone: Comment on above: PATIENT WAS FASTINGP ERFORMED BY: TONYA Labcoaida TorresTjdusj7831 [address] RoadDublin [place] [id number] Lymphocytes/100 WBC (Bld) 24 % Normal [facility]; [facility] Work Phone: Comment on above: PATIENT WAS FASTINGP ERFORMED BY: TONYA [facility] Zldsce7233 [address] RoadDublin [place] [id number] MCH (RBC) [Entitic mass] 30.8 pg Normal 26.6-33.0 [facility] Medicine; [facility] Work Phone: Comment on above: PATIENT WAS FASTINGP ERFORMED BY: TONYA Labcoaida Pulirj6732 [address] RoadDublin [place] [id number] MCHC (RBC) [Mass/Vol] 34.2 g/dL Normal 31.5-35.7 [facility]; [facility] Work Phone: Comment on above: PATIENT WAS FASTINGP ERFORMED BY: TONYA Labcoaida Xkxgcq8956 [address] RoadDublin [place] [id number] MCV (RBC) [Entitic vol] 90 fL Normal 79-97 C [facility]; [facility] Work Phone: Comment on above: PATIENT WAS FASTINGP ERFORMED BY: TONYA [facility] Mvekpi2265 [address] RoadDublin [place] [id number] Monocytes (Bld) [#/Vol] 0.6 10*3/uL Normal 0.1-0.9 [facility]; [facility] Work Phone: Comment on above: PATIENT WAS FASTINGP ERFORMED BY: TONYA [facility] Mxfnpr9224 [address] RoadDublin [place] [id number] Monocytes/100 WBC (Bld) 9 % Normal [facility]; [facility] Work Phone: Comment on above: PATIENT WAS FASTINGP ERFORMED BY: TONYA [facility] Pthlnc0660 [address] RoadDublin [place] [id number] Neutrophils (Bld) [#/Vol] 3.8 10*3/uL Normal 1.4-7.0 [facility]; [facility] Work Phone: Comment on above: PATIENT WAS FASTINGP ERFORMED BY: TONYA Labcoaida TorresNmoijn7732 [address] Roadblin [place] [id number] Neutrophils/100 WBC (Bld) 60 % Normal [facility]; [facility] Work Phone: Comment on above: PATIENT WAS FASTINGP ERFORMED BY: [facility] Erslrv5916 [address] Roadblin [place] [id number] Platelets (Bld) [#/Vol] 250 10*3/uL Normal 150-450 [facility]; [facility] Work Phone: Comment on above: PATIENT WAS FASTINGP ERFORMED BY: TONYA [facility] Ebilbz9871 [address] Roadblin [place] [id number] RBC (Bld) [#/Vol] 4.84 10*6/uL Normal 4.14-5.80 [facility] Internal Medicine; [facility] Work Phone: Comment on above: PATIENT WAS FASTINGP ERFORMED BY: TONYA [facility] Dozlxa7139 [address] RoadDublin [place] [id number] WBC (Bld) [#/Vol] 6.4 10*3/uL Normal 3.4-10.8 [facility] Internal Medicine; [facility] Work Phone: Comment on above: PATIENT WAS FASTINGP ERFORMED BY: [facility] Wfohpc8896 [facility]in [place] [id number] HgA1C , Office ([id number])Ordere d By: Eufemia Patel on 03-05-2022 HbA1c (Bld) [Mass fraction] 6.3 % Normal 4.6 - 7.1 [facility]; [facility] Work Phone: LIPID PANEL (68345)Ordered B y: Fish Hatchery Worker on 03-05-2022 Cholesterol [Mass/Vol] 170 mg/dL Normal 100-199 Co [facility]; [facility] Work Phone: Comment on above: PATIENT WAS FASTINGP ERFORMED BY: TONYA [facility] Atrdws8557 [address] RoadDublin [place] [id number] Cholesterol in HDL [Mass/Vol] 45 mg/dL Normal [facility]; [facility] Work Phone: Comment on above: PATIENT WAS FASTINGP ERFORMED BY: TONYA [facility] Odgpcf9404 [address] RoadDublin [place] [id number] Triglyceride [Mass/Vol] 250 mg/dL Abnormal 0-149 [facility]; [facility] Work Phone: Comment on above: PATIENT WAS FASTINGP ERFORMED BY: TONYA [facility] Simlbp2530 [address] RoadDublin [place] [id number] LIPID PANEL (11285) 41 mg/dL Abnormal 5-40 Compr ensive Internal Medicine; [facility] Work Phone: Comment on above: PATIENT WAS FASTINGP ERFORMED BY: TONYA Labcoaida Vgddui0956 [address] RoadDublin [place] [id number] LIPID PANEL (59366) 84 mg/dL Normal 0-99 Compr ensive Internal Medicine; [facility] Work Phone: Comment on above: PATIENT WAS FASTINGP ERFORMED BY: TONYA [facility] Oqgtlo4566 [address] RoadDublin [place] [id number] LIPID PANEL (60085) 1.9 {ratio} Normal 0.0-3.6 Comp [facility]; [facility] Work Phone: Comment on above: LDL/HDL Ratio Men Wo men 1/2 Avg.Risk 1.0 1.5 Avg.Risk 3.6 3.2 2X Avg.Risk 6.2 5.0 3X Avg.Risk 8.0 6.1 PATIENT WAS FASTINGP ERFORMED BY: TONYA [facility] Idxlcg0408 [address] RoadDublin [place] [id number] METABOLIC PANEL, COMPREHENSI VE (59686)Ordered By: Fish Hatchery Worker on 03-05-2022 Albumin [Mass/Vol] 4.6 g/dL Normal 3.8-4.8 Compre [facility] Internal Medicine; [facility] Work Phone: Comment on above: PATIENT WAS FASTINGP ERFORMED BY: TONYA Labcoaida Imunpg3218 [address] RoadDublin [place] [id number] Albumin/Globulin [Mass ratio] 1.9 {ratio} Normal 1.2-2.2 [facility]; [facility] Work Phone: Comment on above: PATIENT WAS FASTINGP ERFORMED BY: TONYA Davidsonlin6370 [address] RoadDublin [place] [id number] ALP [Catalytic activity/Vol] 68 U/L Normal 44-121 [facility]; [facility] Work Phone: Comment on above: PATIENT WAS FASTINGP ERFORMED BY: TONYA Labcoaida DavidsonMwphln8086 [address] RoadDublin [place] [id number] ALT [Catalytic activity/Vol] 22 U/L Normal 0-44 [facility]; [facility] Work Phone: Comment on above: PATIENT WAS FASTINGP ERFORMED BY: TONYA Davidsonlin6370 [address]Dublin [place] [id number] AST [Catalytic activity/Vol] 21 U/L Normal 0-40 [facility]; [facility] Work Phone: Comment on above: PATIENT WAS FASTINGP ERFORMED BY: TONYA Torres6370 [address] RoadDublin [place] [id number] Bilirubin [Mass/Vol] 0.3 mg/dL Normal 0.0-1.2 [facility] rehensive Internal Medicine; [facility] Work Phone: Comment on above: PATIENT WAS FASTINGP ERFORMED BY: TONYA Labjoya Dspetk1553 [address] RoadDublin [place] [id number] Calcium [Mass/Vol] 9.4 mg/dL Normal 8.6-10.2 [facility] Internal Medicine; [facility] Work Phone: Comment on above: PATIENT WAS FASTINGP ERFORMED BY: TONYA Labcoaida Wbalxt7688 [address] RoadDublin [place] [id number] Chloride [Moles/Vol] 102 mmol/L Normal 96-106 Comp rehensive Internal Medicine; [facility] Work Phone: Comment on above: PATIENT WAS FASTINGP ERFORMED BY: TONYA [facility] Scsaat1377 [address] RoadDublin [place] [id number] CO2 [Moles/Vol] 24 mmol/L Normal 20-29 [facility]; [facility] Work Phone: Comment on above: PATIENT WAS FASTINGP ERFORMED BY: CB [facility] Dtrmsy4422 [address] RoadDublin [place] [id number] Creatinine [Mass/Vol] 0.79 mg/dL Normal 0.76-1.27 [facility] prehensive Internal Medicine; [facility] Work Phone: Comment on above: PATIENT WAS FASTINGP ERFORMED BY: TONYA [facility] Eowdhw1201 [address] RoadDublin [place] [id number] GFR/1.73 sq M.predicted among non-blacks MDRD (S/P/Bld) [Vol rate/Area] 101 mL/min/{1.73_m2} Normal [facility]; [facility] Work Phone: Comment on above: PATIENT WAS FASTINGP ERFORMED BY: TONYA [facility] Nlklsq5106 [address] RoadDublin [place] [id number] Globulin (S) [Mass/Vol] 2.4 g/dL Normal 1.5-4.5 C [facility]ensive [facility]; [facility] Work Phone: Comment on above: PATIENT WAS FASTINGP ERFORMED BY: TONYA [facility] Majzia4976 [address] RoadDublin [place] [id number] Glucose [Mass/Vol] 98 mg/dL Normal 65-99 [facility] Internal Medicine; [facility] Work Phone: Comment on above: PATIENT WAS FASTINGP ERFORMED BY: CB [facility] Pxzvmn5750 [address] RoadDublin [place] [id number] Potassium [Moles/Vol] 4.4 mmol/L Normal 3.5-5.2 [facility] prehensive Internal Medicine; [facility] Work Phone: Comment on above: PATIENT WAS FASTINGP ERFORMED BY: CB [facility] Otbipx3673 [address] RoadDublin [place] [id number] Protein [Mass/Vol] 7.0 g/dL Normal 6.0-8.5 [facility] Internal Medicine; [facility] Work Phone: Comment on above: PATIENT WAS FASTINGP ERFORMED BY: TONYA Labcoaida Brogoa5346 [address] RoadDublin [place] [id number] Sodium [Moles/Vol] 138 mmol/L Normal 134-144 [facility] Internal Medicine; [facility] Work Phone: Comment on above: PATIENT WAS FASTINGP ERFORMED BY: TONYA [facility] Xlcsqn2868 [address] RoadDublin [place] [id number] Urea nitrogen [Mass/Vol] 12 mg/dL Normal 8-27 [facility]; [facility] Work Phone: Comment on above: PATIENT WAS FASTINGP ERFORMED BY: TONYA [facility] Qtnenu8291 [address] RoadDublin [place] [id number] Urea nitrogen/Creatinine [Mass ratio] 15 mg/mg Normal 10-24 [facility]; [facility] Work Phone: Comment on above: PATIENT WAS FASTINGP ERFORMED BY: TONYA [facility] Waagre0618 [address] RoadDublin [place] [id number] METABOLIC PANEL, COMPREHENSIVE (33672) 101 mL/min/1.73 Normal [facility] Internal Medicine; [facility] Work Phone: MICROALBUMINOrdered By: Syst em Fretted Instrument Inspector on 03-05-2022 Albumin DL <= 20 mg/L (U) [Mass/Vol] 14.4 ug/mL Normal [facility]; [facility] Work Phone: Comment on above: PATIENT WAS FASTINGP ERFORMED BY: CB [facility] Nqxkbm4893 [address] RoadDublin [place] [id number] Albumin/Creatinine (U) [Mass ratio] 14 {mg/g_creat} Normal 0-29 [facility]; [facility] Work Phone: Comment on above: Normal: 0 - 29 Moder ately increased: 30 - 300 Severely increased: >300 PATIENT WAS FASTINGP ERFORMED BY: CB [facility] Nrvfov9404 [address] RoadDublin [place] [id number] Creatinine (U) [Mass/Vol] 104.7 mg/dL Normal [facility]; [facility] Work Phone: Comment on above: PATIENT WAS FASTINGP ERFORMED BY: TONYA Avniaida DavidsonFeqhqm9154 [address] [facility] [id number] TSH ([id number])Ordered By: J Kumar Infraprojects m Fretted Instrument Inspector on 03-05-2022 TSH Qn 3.300 {uIU/mL} Normal 0.450-4.50 0 [facility]; [facility] Work Phone: Comment on above: PATIENT WAS FASTINGP ERFORMED BY: TONYA Torres6370 [facility] [id number] URINALYSIS, W/ MICRO ([id number]) Ordered By: Fish Hatchery Worker on 03-05-2022 Appearance (U) Clear Normal Comprehens arianna Internal Medicine; [facility] Work Phone: Comment on above: PATIENT WAS FASTINGP ERFORMED BY: TONYA Davidsonlin[address] [facility] [id number] Bilirubin Ql (U) Negative Normal Comprehe nsive Internal Medicine; [facility] Work Phone: Comment on above: PATIENT WAS FASTINGP ERFORMED BY: TONYA Davidsonlin[address] [facility] [id number] Color (U) Yellow Normal [facility]; [facility] Work Phone: Comment on above: PATIENT WAS FASTINGP ERFORMED BY: TONYA Torres[address] [facility] [id number] Glucose Ql (U) Negative Normal Comprehens arianna Internal Medicine; [facility] Work Phone: Comment on above: PATIENT WAS FASTINGP ERFORMED BY: TONYA Kenyajuliana DavidsonCiziwi8618 [address] [facility] [id number] Hemoglobin Ql (U) Negative Normal Compreh ensive Internal Medicine; [facility] Work Phone: Comment on above: PATIENT WAS FASTINGP ERFORMED BY: TONYA Davidsonlin[address] [facility] [id number] Ketones Ql (U) Negative Normal Comprehens arianna Internal Medicine; [facility] Work Phone: Comment on above: PATIENT WAS FASTINGP ERFORMED BY: TONYA Richi Oigkho0182 [address] [facility]bl[facility] [place] [id number] Leukocyte esterase Test strip Ql (U) Negative Normal [facility]; [facility] Work Phone: Comment on above: PATIENT WAS FASTINGP ERFORMED BY: TONYA Labcoaida DavidsonBbdkhs7319 [address] [facility]in [place] [id number] Microscopic observation LM Nom (Urine sed) MICRON Normal [facility]; [facility] Work Phone: Comment on above: Microscopic follows if indicated. PATIENT WAS FASTINGP ERFORMED BY: TONYA Avniaida Exahxr9178 [address] [facility]bl[facility] [place] [id number] Microscopic observation LM Nom (Urine sed) See below: Normal [facility]; [facility] Work Phone: Comment on above: Microscopic was lynnette cated and was performed. PATIENT WAS FASTINGP ERFORMED BY: TONYA Davidsonlin[address] [facility]in [place] [id number] Nitrite Ql (U) Negative Normal Comprehens arianna Internal Medicine; [facility] Work Phone: Comment on above: PATIENT WAS FASTINGP ERFORMED BY: TONYA Davidsonlin6370 [facility] [id number] pH (U) 7.0 [pH] Normal 5.0-7.5 [facility]; [facility] Work Phone: Comment on above: PATIENT WAS FASTINGP ERFORMED BY: TONYA Labcoaida Veahix[address] [facility]in [place] [id number] Protein Ql (U) Negative Normal Comprehens arianna Internal Medicine; [facility] Work Phone: Comment on above: PATIENT WAS FASTINGP ERFORMED BY: TONYA Labjuliana DavidsonYjudem[address] [facility]in [place] [id number] Specific gravity (U) [Rel density] 1.019 1 Normal 1.005-1.03 0 [facility]; [facility] Work Phone: Comment on above: PATIENT WAS FASTINGP ERFORMED BY: TONYA [facility] Vcyoxl3785 [address] Roadbl[address] [place] [id number] Urobilinogen (U) [Mass/Vol] 0.2 mg/dL Normal 0.2-1.0 [facility]; [facility] Work Phone: Comment on above: PATIENT WAS FASTINGP ERFORMED BY: TONYA [facility] Vqvpvo0128 [address] [facility] [id number] Blood Glucose , Office (5726 2)Ordered By: Eufemia Patel on 10-30-2021 Glucose Glucometer (BldC) [Moles/Vol] 107 1 Normal [facility]; [facility] Work Phone: HgA1C , Office ([id number])Ordere d By: Eufemia Patel on 10-30-2021 HbA1c (Bld) [Mass fraction] 6.0 % Normal 4.6 - 7.1 [facility]; [facility] Work Phone: CBC W/AUTO DIFF WBC ([id number])O rdered By: Fish Hatchery Worker on 06-26-2021 Basophils (Bld) [#/Vol] 0.1 10*3/uL Normal 0.0-0.2 [facility]; [facility] Work Phone: Comment on above: PATIENT WAS FASTINGP ERFORMED BY: TONYA [facility] Eqxevq[address] [facility] [place] [id number] Basophils/100 WBC (Bld) 1 % Normal C omprehensive Internal Medicine; [facility] Work Phone: Comment on above: PATIENT WAS FASTINGP ERFORMED BY: TONYA [facility] Fvlarn9517 [address] RoadDuin [place] [id number] Eosinophils (Bld) [#/Vol] 0.3 10*3/uL Normal 0.0-0.4 [facility]; [facility] Work Phone: Comment on above: PATIENT WAS FASTINGP ERFORMED BY: TONYA [facility] Iokrhs7576 [address] RoadDublin [place] [id number] Eosinophils/100 WBC (Bld) 6 % Normal [facility]; [facility] Work Phone: Comment on above: PATIENT WAS FASTINGP ERFORMED BY: TONYA Torres[address] [facility]in [place] [id number] Erythrocyte distribution width (RBC) [Ratio] 12.8 % Normal 11.6-15.4 [facility]; [facility] Work Phone: Comment on above: PATIENT WAS FASTINGP ERFORMED BY: TONYA Zambranocoaida TorresZwpuvb[address] [facility] [id number] Hematocrit (Bld) [Volume fraction] 42.6 % Normal 37.5-51.0 [facility]; [facility] Work Phone: Comment on above: PATIENT WAS FASTINGP ERFORMED BY: TNOYA Davidsonlin6370 [facility]Good [facility] [id number] Hemoglobin (Bld) [Mass/Vol] 14.8 g/dL Normal 13.0-17.7 [facility]; [facility] Work Phone: Comment on above: PATIENT WAS FASTINGP ERFORMED BY: TONYA Holly Shxuse9403 [facility] RoadGood [facility] [id number] Immature granulocytes (Bld) [#/Vol] 0.0 10*3/uL Normal 0.0-0.1 [facility]; [facility] Work Phone: Comment on above: PATIENT WAS FASTINGP ERFORMED BY: TONYA Holly Ozidkl[address] [facility]in [place] [id number] Immature granulocytes/100 WBC (Bld) 0 % Normal [facility]; [facility] Work Phone: Comment on above: PATIENT WAS FASTINGP ERFORMED BY: TONYA [facility] Vqrssy7294 [address] [facility]bl[facility] [place] [id number] Lymphocytes (Bld) [#/Vol] 1.9 10*3/uL Normal 0.7-3.1 [facility]; [facility] Work Phone: Comment on above: PATIENT WAS FASTINGP ERFORMED BY: [facility] Wynifl0404 [address] RoadGood [facility] Hospital [id number] Lymphocytes/100 WBC (Bld) 32 % Normal [facility]; [facility] Work Phone: Comment on above: PATIENT WAS FASTINGP ERFORMED BY: TONYA Kenyajuliana DavidsonTipnfi6590 [facility] [id number] MCH (RBC) [Entitic mass] 31.2 pg Normal 26.6-33.0 [facility]; [facility] Work Phone: Comment on above: PATIENT WAS FASTINGP ERFORMED BY: TONYA Holly Wdgguk4772 [facility] [id number] MCHC (RBC) [Mass/Vol] 34.7 g/dL Normal 31.5-35.7 [facility]; [facility] Work Phone: Comment on above: PATIENT WAS FASTINGP ERFORMED BY: TONYA Davidsonlin6370 [facility] [id number] MCV (RBC) [Entitic vol] 90 fL Normal 79-97 C [facility]; [facility] Work Phone: Comment on above: PATIENT WAS FASTINGP ERFORMED BY: TONYA Davidsonlin6370 [facility] [id number] Monocytes (Bld) [#/Vol] 0.6 10*3/uL Normal 0.1-0.9 [facility]; [facility] Work Phone: Comment on above: PATIENT WAS FASTINGP ERFORMED BY: TONYA HollyRobert [facility] Hospital SomersetUigrsl2146 [facility] [id number] Monocytes/100 WBC (Bld) 10 % Normal C [facility]; [facility] Work Phone: Comment on above: PATIENT WAS FASTINGP ERFORMED BY: TONYA Davidsonlin6370 [facility] [id number] Neutrophils (Bld) [#/Vol] 3.0 10*3/uL Normal 1.4-7.0 [facility]; [facility] Work Phone: Comment on above: PATIENT WAS FASTINGP ERFORMED BY: TONYA Davidsonlin[address] [facility]in [place] [id number] Neutrophils/100 WBC (Bld) 51 % Normal [facility]; [facility] Work Phone: Comment on above: PATIENT WAS FASTINGP ERFORMED BY: TONYA Torres[address] [facility]in [place] [id number] Platelets (Bld) [#/Vol] 247 10*3/uL Normal 150-450 [facility]; [facility] Work Phone: Comment on above: PATIENT WAS FASTINGP ERFORMED BY: TONYA [facility] Bsiesa[address] [facility] [place] [id number] RBC (Bld) [#/Vol] 4.74 10*6/uL Normal 4.14-5.80 [facility] Internal Medicine; [facility] Work Phone: Comment on above: PATIENT WAS FASTINGP ERFORMED BY: [facility] Aebthv0965 [facility] [id number] WBC (Bld) [#/Vol] 5.8 10*3/uL Normal 3.4-10.8 [facility] Internal Medicine; [facility] Work Phone: Comment on above: PATIENT WAS FASTINGP ERFORMED BY: TONYA Davidsonlin6370 [facility] [id number] HGB A1C ([id number])Ordered By: S ystem Fretted Instrument Inspector on 06-26-2021 HbA1c (Bld) [Mass fraction] 6.2 % Abnormal 4.8-5.6 [facility]; [facility] Work Phone: Comment on above: . Prediabetes: 5.7 - 6.4 Diabetes: >6.4 Glycemic control for adults with diabetes: <7.0 PATIENT WAS FASTINGP ERFORMED BY: TONYA [facility] Dzfxxx8160 [facility] [id number] LIPID PANEL (87483)Ordered B y: Fish Hatchery Worker on 06-26-2021 Cholesterol [Mass/Vol] 147 mg/dL Normal 100-199 Co [facility] Internal Medicine; [facility] Work Phone: Comment on above: PATIENT WAS FASTINGP ERFORMED BY: TONYA [facility] Ubnode5516 [address] RoadDublin [place] [id number] Cholesterol in HDL [Mass/Vol] 44 mg/dL Normal [facility]; [facility] Work Phone: Comment on above: PATIENT WAS FASTINGP ERFORMED BY: TONYA [facility] Inxpia0493 [address] RoadDublin [place] [id number] Triglyceride [Mass/Vol] 189 mg/dL Abnormal 0-149 C [facility]; [facility] Work Phone: Comment on above: PATIENT WAS FASTINGP ERFORMED BY: TONYA [facility] Jptlhi5628 [address] RoadDublin [place] [id number] LIPID PANEL ([id number]) 32 mg/dL Normal 5-40 [facility] Centerensive Internal [facility]; [facility] Work Phone: Comment on above: PATIENT WAS FASTINGP ERFORMED BY: TONYA Labcoaida Tzvyks6819 Haney RoadDublin [place] [id number] LIPID PANEL (99543) 71 mg/dL Normal 0-99 [facility]; [facility] Work Phone: Comment on above: PATIENT WAS FASTINGP ERFORMED BY: TONYA [facility] Nusyqr8749 [address] RoadDublin [place] [id number] LIPID PANEL (34949) 1.6 {ratio} Normal 0.0-3.6 [facility]; [facility] Work Phone: Comment on above: LDL/HDL Ratio Men Wo men 1/2 Avg.Risk 1.0 1.5 Avg.Risk 3.6 3.2 2X Avg.Risk 6.2 5.0 3X Avg.Risk 8.0 6.1 PATIENT WAS FASTINGP ERFORMED BY: TONYA [facility] Wdslbb7856 Haney RoadDublin [place] [id number] METABOLIC PANEL, COMPREHENSI VE (71581)Ordered By: Fish Hatchery Worker on 06-26-2021 Albumin [Mass/Vol] 4.6 g/dL Normal 3.8-4.8 [facility]; [facility] Work Phone: Comment on above: PATIENT WAS FASTINGP ERFORMED BY: TONYA [facility] Tvoriq5378 [address]aney RoadDublin [place] [id number] Albumin/Globulin [Mass ratio] 1.8 {ratio} Normal 1.2-2.2 [facility]; [facility] Work Phone: Comment on above: PATIENT WAS FASTINGP ERFORMED BY: CB [facility] Nynrhm79[address] RoadDublin [place] [id number] ALP [Catalytic activity/Vol] 62 U/L Normal 44-121 [facility]; [facility] Work Phone: Comment on above: Please note refere nce interval change PATIENT WAS FASTINGP ERFORMED BY: TONYA [facility] Tuubzm7655 [address] RoadDublin [place] [id number] ALT [Catalytic activity/Vol] 23 U/L Normal 0-44 [facility]; [facility] Work Phone: Comment on above: PATIENT WAS FASTINGP ERFORMED BY: [facility] Fljszc8512 [address] RoadDublin [place] [id number] AST [Catalytic activity/Vol] 24 U/L Normal 0-40 [facility]; [facility] Work Phone: Comment on above: PATIENT WAS FASTINGP ERFORMED BY: [facility] Hoppso66[address] RoadDublin [place] [id number] Bilirubin [Mass/Vol] 0.3 mg/dL Normal 0.0-1.2 [facility]; [facility] Work Phone: Comment on above: PATIENT WAS FASTINGP ERFORMED BY: [facility] Tcenvd7722 [address] RoadDublin [place] [id number] Calcium [Mass/Vol] 9.2 mg/dL Normal 8.6-10.2 [facility] Internal Medicine; [facility] Work Phone: Comment on above: PATIENT WAS FASTINGP ERFORMED BY: CB [facility] Yfqvhe0387 [address] RoadDublin [place] [id number] Chloride [Moles/Vol] 104 mmol/L Normal 96-106 Comp rehensive Internal Medicine; [facility] Work Phone: Comment on above: PATIENT WAS FASTINGP ERFORMED BY: TONYA Torres[address] [place] [id number] CO2 [Moles/Vol] 22 mmol/L Normal 20-29 Comprehen [facility] Internal Medicine; [facility] Work Phone: Comment on above: PATIENT WAS FASTINGP ERFORMED BY: TONYA Torres[address] DuncanCannon Memorial Hospital [id number] Creatinine [Mass/Vol] 0.77 mg/dL Normal 0.76-1.27 Com prehensive Internal Medicine; [facility] Work Phone: Comment on above: PATIENT WAS FASTINGP ERFORMED BY: TONYA Torres[address] PerlaCannon Memorial Hospital [id number] GFR/1.73 sq M.predicted among blacks CKD-EPI (S/P/Bld) [Vol rate/Area] 113 mL/min/1.73 Normal [facility]; [facility] Work Phone: Comment on above: In accordance with recommendations from the NKF-ASN Task force, [facility] is in the process of updating its eGFR calculation to the 2020 CKD-EPI creatinine equation that estimates kidney function without a race variable. PATIENT WAS FASTINGP ERFORMED BY: TONYA Torres[address] PerlaCannon Memorial Hospital [id number] GFR/1.73 sq M.predicted among non-blacks CKD-EPI (S/P/Bld) [Vol rate/Area] 98 mL/min/1.73 Normal [facility]; [facility] Work Phone: Comment on above: PATIENT WAS FASTINGP ERFORMED BY: TONYA Torres6370 [facility]aneyL[facility] [id number] Globulin (S) [Mass/Vol] 2.6 g/dL Normal 1.5-4.5 C omprehensive Internal Medicine; [facility] Work Phone: Comment on above: PATIENT WAS FASTINGP ERFORMED BY: TONYA Torres6370 [facility] [id number] Glucose [Mass/Vol] 94 mg/dL Normal 65-99 [facility] Internal Medicine; [facility] Work Phone: Comment on above: PATIENT WAS FASTINGP ERFORMED BY: TONYA Labcoaida DavidsonZichxs3521 [address] RoadDublin [place] [id number] Potassium [Moles/Vol] 4.4 mmol/L Normal 3.5-5.2 [facility]ensive [facility]; [facility] Work Phone: Comment on above: PATIENT WAS FASTINGP ERFORMED BY: TONYA [facility] Ixfmrc5493 [address] RoadDublin [place] [id number] Protein [Mass/Vol] 7.2 g/dL Normal 6.0-8.5 [facility] Internal Medicine; [facility] Work Phone: Comment on above: PATIENT WAS FASTINGP ERFORMED BY: TONYA [facility] Yzenvs3505 H[address] RoadDuin [place] [id number] Sodium [Moles/Vol] 142 mmol/L Normal 134-144 [facility] Internal Medicine; [facility] Work Phone: Comment on above: PATIENT WAS FASTINGP ERFORMED BY: TONYA Labcoaida Pcgwmc6154 [address] Roadblin [place] [id number] Urea nitrogen [Mass/Vol] 12 mg/dL Normal 8-27 [facility]; [facility] Work Phone: Comment on above: PATIENT WAS FASTINGP ERFORMED BY: TONYA [facility] Zkxuxu6952 H[address] Roadblin [place] [id number] Urea nitrogen/Creatinine [Mass ratio] 16 mg/mg Normal 10-24 [facility]; [facility] Work Phone: Comment on above: PATIENT WAS FASTINGP ERFORMED BY: TONYA [facility] Uzcgke[address] [facility] Hospitalblin [place] [id number] MICROALBUMINOrdered By: Syst em Fretted Instrument Inspector on 06-26-2021 Albumin DL <= 20 mg/L (U) [Mass/Vol] 13.9 ug/mL Normal [facility]; [facility] Work Phone: Comment on above: PATIENT WAS FASTINGP ERFORMED BY: CB [facility] Nttuta7059 [address] RoadDublin [place] [id number] Albumin/Creatinine (U) [Mass ratio] 11 {mg/g_creat} Normal 0-29 [facility]; [facility] Work Phone: Comment on above: Normal: 0 - 29 Moder ately increased: 30 - 300 Severely increased: >300 PATIENT WAS FASTINGP ERFORMED BY: TONYA [facility] Hkhlnn8128 [address] RoadDublin [place] [id number] Creatinine (U) [Mass/Vol] 124.4 mg/dL Normal [facility]; [facility] Work Phone: Comment on above: PATIENT WAS FASTINGP ERFORMED BY: TONYA Labjoya Pekeli5777 [address] RoadDublin [place] [id number] TSH (08913)Ordered By: Tetraphase Pharmaceuticalse m Fretted Instrument Inspector on 06-26-2021 TSH Qn 2.600 {uIU/mL} Normal 0.450-4.50 0 [facility]; [facility] Work Phone: Comment on above: PATIENT WAS FASTINGP ERFORMED BY: TONYA Labcoaida Mbbjhs2359 [address] RoadDublin [place] [id number] URINALYSIS, W/ MICRO (69439) Ordered By: Fish Hatchery Worker on 06-26-2021 Appearance (U) Clear Normal Comprehens arianna Internal Medicine; [facility] Work Phone: Comment on above: PATIENT WAS FASTINGP ERFORMED BY: TONYA Labcoaida DavidsonYywyzz6[address] RoadDublin [place] [id number] Bilirubin Ql (U) Negative Normal Comprehe nsive Internal Medicine; [facility] Work Phone: Comment on above: PATIENT WAS FASTINGP ERFORMED BY: TONYA [facility] Dflvtm9342 [address] RoadDublin [place] [id number] Color (U) Yellow Normal [facility]; [facility] Work Phone: Comment on above: PATIENT WAS FASTINGP ERFORMED BY: TONYA [facility] Fuqpih0740 [address] RoadDublin [place] [id number] Glucose Ql (U) Negative Normal Comprehens arianna Internal Medicine; [facility] Work Phone: Comment on above: PATIENT WAS FASTINGP ERFORMED BY: TONYA Torres6[address]Dublin [place] [id number] Hemoglobin Ql (U) Negative Normal Compreh ensive Internal Medicine; [facility] Work Phone: Comment on above: PATIENT WAS FASTINGP ERFORMED BY: TONYA Davidsonlin6[address]Dublin [place] [id number] Ketones Ql (U) Negative Normal Comprehens arianna Internal Medicine; [facility] Work Phone: Comment on above: PATIENT WAS FASTINGP ERFORMED BY: TONYA Davidsonlin6[address] RoadDublin [place] [id number] Leukocyte esterase Test strip Ql (U) Negative Normal [facility]; [facility] Work Phone: Comment on above: PATIENT WAS FASTINGP ERFORMED BY: TONYA Torres6[address]Dublin [place] [id number] Microscopic observation LM Nom (Urine sed) MICRON Normal [facility]; [facility] Work Phone: Comment on above: Microscopic follows if indicated. PATIENT WAS FASTINGP ERFORMED BY: TONYA Davidsonlin6370 [address] RoadDublin [place] [id number] Microscopic observation LM Nom (Urine sed) See below: Normal [facility]; [facility] Work Phone: Comment on above: Microscopic was lynnette cated and was performed. PATIENT WAS FASTINGP ERFORMED BY: TONYA Stoddard Tsqmok9196 [address] RoadDublin [place] [id number] Nitrite Ql (U) Negative Normal Comprehens arianna Internal Medicine; [facility] Work Phone: Comment on above: PATIENT WAS FASTINGP ERFORMED BY: TONYA Labjuliana DavidsonEwxmno5908 [address] RoadDublin [place] [id number] pH (U) 6.5 [pH] Normal 5.0-7.5 [facility]; [facility] Work Phone: Comment on above: PATIENT WAS FASTINGP ERFORMED BY: [facility]6370 [facility] [id number] Protein Ql (U) Negative Normal Comprehens arianna Internal Medicine; [facility] Work Phone: Comment on above: PATIENT WAS FASTINGP ERFORMED BY: [facility]6370 [facility] [id number] Specific gravity (U) [Rel density] 1.020 1 Normal 1.005-1.03 0 [facility]; [facility] Work Phone: Comment on above: PATIENT WAS FASTINGP ERFORMED BY: [facility] [place] [address] [id number] Urobilinogen (U) [Mass/Vol] 0.2 mg/dL Normal 0.2-1.0 [facility]; [facility] Work Phone: Comment on above: PATIENT WAS FASTINGP ERFORMED BY: [place] [id number] [facility] [id number] HEPATITIS C ANTIBODY (77907) Ordered By: Fish Hatchery Worker on 12-21-2020 HCV Ab Signal/Cutoff IA [Rel units/Vol] {ratio} Normal 0.0-0.9 [facility]; [facility] Work Phone: Comment on above: Negative: < 0.8 Inde terminate: 0.8 - 0.9 Positive: > 0.9 . The CDC recommends that a positive HCV antibody result be followed up with a HCV Nucleic Acid Amplification test (561816). Test(s) 213725-DCD-L ; 542014-WMC-I; 329511-Drayenwvpenqr; 910848-Oumqgsiohup, Total; 322538-NKG-Q (Total); 517226-Khxpz LDL-P; 367638-GFV Size; 788353-SC-AQ Scorewas developed and its performance characteristics determinedby NanoNordhannibal regional hospital. It has not been cleared or approved by the Foodand Drug Administration.PATIENT WAS FASTINGPERFORMED BY: [place] [id number] [facility] [id number] BY: [facility]6370 [facility] [id number] MICROALBUMINOrdered By: Syst em Fretted Instrument Inspector on 12-21-2020 Albumin DL <= 20 mg/L (U) [Mass/Vol] 9.5 ug/mL Normal [facility]; [facility] Work Phone: Comment on above: Test(s) 708503-ECS-P ; 488552-TTC-R; 152520-Lvhfjboiqbmyt; 084417-Inycydhrraz, Total; 146298-OQJ-U (Total); 432603-Eklzr LDL-P; 967868-NKF Size; 775444-HK-KL Scorewas developed and its performance characteristics determinedby [employer]onJax. It has not been cleared or approved by the Foodand Drug Administration.PATIENT WAS FASTINGPERFORMED BY: LogicLadder[address] [id number] BY: UnisfairCannon Memorial Hospital [id number] Albumin/Creatinine (U) [Mass ratio] 10 {mg/g_creat} Normal 0-29 [facility]; [facility] Work Phone: Comment on above: Normal: 0 - 29 Moder ately increased: 30 - 300 Severely increased: >300 Test(s) 197858-VGT-L ; 714202-LXT-W; 465608-Hnaalqyghxbxn; 170085-Bgycmxekkyq, Total; 049282-FDQ-J (Total); 046521-Juhce LDL-P; 955667-ZVV Size; 588832-YQ-XR Scorewas developed and its performance characteristics determinedby [employer]onJax. It has not been cleared or approved by the Foodand Drug Administration.PATIENT WAS FASTINGPERFORMED BY: LogicLadder[address] [id number] BY: You.Do70 [facility]texGood [facility] [id number] Creatinine (U) [Mass/Vol] 91.2 mg/dL Normal [facility]; [facility] Work Phone: Comment on above: Test(s) 028091-TBG-V ; 261127-PHW-V; 089658-Myymbtoieyhkm; 967044-Jwsfnoiwmwc, Total; 639962-WUD-V (Total); 332136-Ckppa LDL-P; 700932-ZHD Size; 250521-UE-HY Scorewas developed and its performance characteristics determinedby [employer]onJax. It has not been cleared or approved by the Foodand Drug Administration.PATIENT WAS FASTINGPERFORMED BY: [address] [id number] BY: Klypper70 [facility] [id number] NMR Profile (35841)Ordered B y: Fish Hatchery Worker on 12-21-2020 Cholesterol [Mass/Vol] 140 mg/dL Normal 100-199 [facility] Internal Medicine; [facility] Work Phone: Comment on above: Test(s) 075514-PQB-E ; 145054-MNE-J; 458937-Ttrlyrlcqlpme; 067258-Twdbuskdufz, Total; 626550-UAF-O (Total); 379229-Wwfua LDL-P; 898969-WTU Size; 218440-ZE-RQ Scorewas developed and its performance characteristics determinedby [employer]onJax. It has not been cleared or approved by the Foodand Drug Administration.PATIENT WAS FASTINGPERFORMED BY: [address] [id number] BY: [employer]6370 [facility] [id number] Lipoprotein.alpha [Moles/Vol] 32.7 umol/L Normal [facility]; [facility] Work Phone: Comment on above: Test(s) 541545-UNY-B ; 901261-TES-J; 929321-Kiljjxtlkmary; 930908-Ftbcmiqlpqm, Total; 918334-GHI-R (Total); 285038-Cqtgf LDL-P; 216994-TCV Size; 954352-FW-NB Scorewas developed and its performance characteristics determinedby FonJax. It has not been cleared or approved by the Foodand Drug Administration.PATIENT WAS FASTINGPERFORMED BY: [address] [id number] BY: You.Do70 [facility] [id number] Lipoprotein.beta.subpar ticle [Entitic length] 21.[address] [facility] Internal Medicine; [facility] Medicine [...] not afterLDL-P is taken into account. Test(s) 010426-UPJ-J ; 687951-PUR-S; 286929-Pjxdimggykoqm; 927795-Zerleaulwez, Total; 513639-AYC-C (Total); 340415-Ifaeg LDL-P; 059672-OJL Size; 190076-DU-JL Scorewas developed and its performance characteristics determinedby [employer]. It has not been cleared or approved by the Foodand Drug Administration.PATIENT WAS FASTINGPERFORMED BY: [address] [id number] BY: NanoNordCorewell [facility]6370 [facility] [id number] Lipoprotein.beta.subpar ticle [Moles/Vol] 794 nmol/L Normal [facility] Internal Medicine; [facility] Work Phone: Comment on above: Low < 1000 Moderate 1000 - 1299 Borderline-High 1300 - 1599 High 1600 - 2000 Very High > 2000 Test(s) 883771-BYE-S ; 581439-HGR-Z; 738488-Vbyohcyihzalr; 086803-Mvavtktmoqz, Total; 056776-IYU-O (Total); 792667-Akovk LDL-P; 056040-TGW Size; 509294-JX-HA Scorewas developed and its performance characteristics determinedby FonJax. It has not been cleared or approved by the Foodand Drug Administration.PATIENT WAS FASTINGPERFORMED BY: [employer] [facility] [id number] BY: UnisfairCannon Memorial Hospital [id number] Lipoprotein.beta.subpar ticle.small [Moles/Vol] 227 nmol/L Normal Comprehe nsive Internal Medicine; [facility] Work Phone: Comment on above: Test(s) 255361-UYO-J ; 836572-PLC-O; 210442-Yfbaoaseazwbz; 401349-Zwvgcvtuqfm, Total; 593407-UKW-X (Total); 826700-Jxtyy LDL-P; 189780-YIV Size; 157616-WA-ET Scorewas developed and its performance characteristics determinedby FonJax. It has not been cleared or approved by the FoodInstagarage Drug Administration.PATIENT WAS FASTINGPERFORMED BY: Labelby.[email or web address] [facility] [id number] BY: [employer] Apps[address] Fixstream Networks IncCannon Memorial Hospital [id number] Triglyceride [Mass/Vol] 110 mg/dL Normal 0-149 C omprehensive Internal Medicine; [facility] Work Phone: Comment on above: Test(s) 326525-MJY-D ; 487921-HAT-Q; 472238-Azbupuwcobkek; 474710-Kftpzbnqniu, Total; 232912-GLF-P (Total); 380920-Mocer LDL-P; 312218-ESR Size; 086256-KK-ZE Scorewas developed and its performance characteristics determinedby FonJax. It has not been cleared or approved by the Foodand Drug Administration.PATIENT WAS FASTINGPERFORMED BY: [employer] [id number] BY: Smart Imaging SystemsRobert Wood Johnson University Hospital SomersetKtwdjc5198 [facility] [id number] NMR Profile (33343) 71 mg/dL Normal 0-99 [facility] ehensive Internal Medicine; [facility] Work Phone: Comment on above: . Optimal < 100 Abov e optimal 100 - 129 Borderline 130 - 159 High 160 - 189 Very high > 189 . Test(s) 190493-GSV-Q ; 762631-XAQ-O; 520324-Zndqwujnpuohd; 834999-Sqxrzfjdppo, Total; 412945-QRT-D (Total); 720164-Bjtks LDL-P; 413363-ZOI Size; 288792-BX-CS Scorewas developed and its performance characteristics determinedby FonJax. It has not been cleared or approved by the Foodand Drug Administration.PATIENT WAS FASTINGPERFORMED BY: [employer] [id number] BY: [employer] Vrjlrz5166 [facility] [id number] NMR Profile (66310) 49 mg/dL Normal [facility]eren[facility]; [facility] Work Phone: Comment on above: Test(s) 606532-GHK-D ; 381662-AVX-L; 707002-Egwjlgkbnddmb; 673857-Gebdzefizrl, Total; 742402-WKF-U (Total); 681747-Ljslj LDL-P; 236803-QLQ Size; 477034-QI-QF Scorewas developed and its performance characteristics determinedby FonJax. It has not been cleared or approved by the Foodand Drug Administration.PATIENT WAS FASTINGPERFORMED BY: [employer] [id number] BY: Smart Imaging SystemsRobert Wood Johnson University Hospital SomersetVirpdp8432 [facility] [id number] NMR Profile (58736) 110 mg/dL Normal 0-149 Compr ehensive Internal Medicine; [facility] Work Phone: NMR Profile (36355) 140 mg/dL Normal 100-199 Compr [facility] Internal Medicine; [facility] Work Phone: PSA (PROSTATE SPECIFIC ANTIG EN) (V76.44)Ordered By: Fish Hatchery Worker on 12-21-2020 Prostate specific Ag [Mass/Vol] 0.3 ng/mL Normal 0.0-4.0 [facility]; [facility] Work Phone: Comment on above: Fontacto ECLIA methodol ogy. .According to the [place] [employer], Serum PSA shoulddecrease and remain at undetectable levels after radicalprostatectomy. The AUA defines biochemical recurrence as an initialPSA value 0.2 ng/mL or greater followed by a subsequent confirmatoryPSA value 0.2 ng/mL or greater.Values obtained with different assay methods or kits cannot be usedinterchangeably. Results cannot be interpreted as absolute evidenceof the presence or absence of malignant disease. Test(s) 654757-JMF-Y ; 548313-QZU-H; 111783-Ngnxdeoopjreq; 937192-Snbbzwdajyv, Total; 109172-TLR-R (Total); 932333-Zzycg LDL-P; 798838-NYC Size; 503758-AF-OV Scorewas developed and its performance characteristics determinedby FonJax. It has not been cleared or approved by the Foodand Drug Administration.PATIENT WAS FASTINGPERFORMED BY: LabBeThereRewards [address] [id number] BY: LabEffdonRobert Wood Johnson University Hospital SomersetWtaiue4450 [facility] [id number] TSH (84166)Ordered By: Syste m Fretted Instrument Inspector on 12-21-2020 TSH Qn 2.870 {uIU/mL} Normal 0.450-4.50 0 [facility] Internal Medicine; [facility] Internal Medicine Work Phone: Comment on above: Test(s) 007075-MOY-B ; 772130-WZE-B; 511674-Vexarujeizuyu; 099950-Pgdbnhjyzbp, Total; 158653-AWA-Z (Total); 362249-Bbeai LDL-P; 881578-ZUG Size; 622073-FM-PV Scorewas developed and its performance characteristics determinedby FonJax. It has not been cleared or approved by the Foodand Drug Administration.PATIENT WAS FASTINGPERFORMED BY: [address] [id number] BY: You.Do70 BodeTreeCannon Memorial Hospital [id number] URINALYSIS, W/ MICRO (92111) Ordered By: Fish Hatchery Worker on 12-21-2020 Appearance (U) Clear Normal Comprehens arianna Internal Medicine; [facility] Work Phone: Comment on above: Test(s) 967869-HPP-S ; 285528-RNB-B; 529864-Tdrbvcqcdtuxx; 042861-Jwjysccrddh, Total; 038026-QSY-R (Total); 775571-Tnzvy LDL-P; 845597-XMO Size; 413545-BI-QX Scorewas developed and its performance characteristics determinedby FonJax. It has not been cleared or approved by the Foodand Drug Administration.PATIENT WAS FASTINGPERFORMED BY: [address] [id number] BY: You.Do70 Power AssureUofL Health - [facility] [id number] Bilirubin Ql (U) Negative Normal Comprehe nsive Internal Medicine; [facility] Work Phone: Comment on above: Test(s) 213480-UEX-P ; 964148-HYV-B; 925587-Vodddmccbgpmn; 772671-Pzvewlvcqfg, Total; 287445-KRO-X (Total); 924382-Dallc LDL-P; 141132-EIU Size; 103065-RH-JO Scorewas developed and its performance characteristics determinedby FonJax. It has not been cleared or approved by the Foodand Drug Administration.PATIENT WAS FASTINGPERFORMED BY: [address] [id number] BY: For[employer] Medicallin6370 BodeTreeCannon Memorial Hospital [id number] Color (U) Yellow Normal [facility]; [facility] Work Phone: Comment on above: Test(s) 956177-PWU-W ; 658602-TWH-R; 033434-Xfmxldfwaxuve; 347142-Pbkcjglkjnm, Total; 445487-WXH-U (Total); 856999-Bvgwi LDL-P; 006776-IAH Size; 407874-JI-RB Scorewas developed and its performance characteristics determinedby FonJax. It has not been cleared or approved by the Foodand Drug Administration.PATIENT WAS FASTINGPERFORMED BY: [address] [id number] BY: [employer] Lzsgya8107 [facility] [id number] Glucose Ql (U) Negative Normal Comprehens arianna Internal Medicine; [facility] Work Phone: Comment on above: Test(s) 950833-AUY-V ; 870284-ZWQ-P; 976943-Pctffwkhmlkgm; 778596-Lnosammxldn, Total; 431126-GOF-W (Total); 118832-Npwui LDL-P; 929418-WNV Size; 658454-CO-BC Scorewas developed and its performance characteristics determinedby FonJax. It has not been cleared or approved by the Foodand Drug Administration.PATIENT WAS FASTINGPERFORMED BY: [address] [id number] BY: [employer] Drgucz1742 [facility] [id number] Hemoglobin Ql (U) Negative Normal Compreh ensive Internal Medicine; [facility] Work Phone: Comment on above: Test(s) 376355-TQM-W ; 184709-HQD-V; 626475-Igrhfukmwdotk; 515784-Fspegeksvsg, Total; 469206-VRB-K (Total); 839458-Opqha LDL-P; 834426-GPS Size; 092791-WP-OW Scorewas developed and its performance characteristics determinedby [employer]. It has not been cleared or approved by the Foodand Drug Administration.PATIENT WAS FASTINGPERFORMED BY: [address] [id number] BY: [employer] Apps6370 [facility] [id number] Ketones Ql (U) Negative Normal Comprehens [facility] Internal Medicine; [facility] Work Phone: Comment on above: Test(s) 029788-BGD-P ; 625426-LCE-D; 566307-Mlzvvshiuipmi; 869915-Fsuqigklmus, Total; 481715-IRS-X (Total); 947416-Mbqoz LDL-P; 556264-QFI Size; 248380-OU-AC Scorewas developed and its performance characteristics determinedby [employer]. It has not been cleared or approved by the Foodand Drug Administration.PATIENT WAS FASTINGPERFORMED BY: LogicLadder[address] [id number] BY: [employer] Apps6370 [facility] [id number] Leukocyte esterase Test strip Ql (U) Negative Normal [facility]; [facility] Work Phone: Comment on above: Test(s) 002665-LME-N ; 977612-RSN-F; 780001-Fijkzwyyjgwfg; 757098-Fovdzsqldrf, Total; 887047-KMB-O (Total); 298416-Ihrps LDL-P; 178819-JDQ Size; 201501-YW-AG Scorewas developed and its performance characteristics determinedby [employer]. It has not been cleared or approved by the Foodand Drug Administration.PATIENT WAS FASTINGPERFORMED BY: LogicLadder[address] [id number] BY: [employer] Medic[employer]in6370 [address] [facility] [id number] Microscopic observation LM Nom (Urine sed) MICRON Normal [facility]; [facility] Work Phone: Comment on above: Microscopic follows if indicated. Test(s) 278977-VBD-E ; 830627-DBT-X; 509136-Yrvwsdyzvzyrq; 813414-Ihovoffsenm, Total; 971780-FJQ-W (Total); 245880-Rjnjk LDL-P; 489476-IYN Size; 935965-IH-UB Scorewas developed and its performance characteristics determinedby [employer]. It has not been cleared or approved by the Foodand Drug Administration.PATIENT WAS FASTINGPERFORMED BY: [address] [id number] BY: [employer] Zbqszo7218 [address] [facility] [id number] Microscopic observation LM Nom (Urine sed) See below: Normal [facility]; [facility] Work Phone: Comment on above: Microscopic was lynnette cated and was performed. Test(s) 304196-IFM-O ; 666042-YCN-V; 780947-Mmhzdhpzkecat; 305673-Tvefzqetlax, Total; 928309-CZW-K (Total); 804854-Liplr LDL-P; 018531-FXE Size; 577406-RW-FH Scorewas developed and its performance characteristics determinedby [employer]. It has not been cleared or approved by the Foodand Drug Administration.PATIENT WAS FASTINGPERFORMED BY: LogicLadder[address] [id number] BY: You.Do70 [facility] [id number] Nitrite Ql (U) Negative Normal Comprehens [facility] Internal Medicine; [facility] Work Phone: Comment on above: Test(s) 505253-EXS-W ; 745394-XCE-U; 981757-Vrauzbhqbbczq; 918119-Tlzpobzwkpi, Total; 918439-BFZ-S (Total); 153298-Fnoic LDL-P; 404350-UER Size; 205579-UW-YO Scorewas developed and its performance characteristics determinedby [employer]. It has not been cleared or approved by the Foodand Drug Administration.PATIENT WAS FASTINGPERFORMED BY: [address] [id number] BY: [employer] Apps6370 [facility] [id number] pH (U) 7.0 [pH] Normal 5.0-7.5 [facility]; [facility] Work Phone: Comment on above: Test(s) 366770-VNN-B ; 509459-CWO-B; 102456-Lnpykgeuvlmrs; 421790-Yqdydmrkdgi, Total; 652553-QNQ-Z (Total); 589978-Izgai LDL-P; 239435-CEJ Size; 306014-BS-HK Scorewas developed and its performance characteristics determinedby [employer]. It has not been cleared or approved by the Foodand Drug Administration.PATIENT WAS FASTINGPERFORMED BY: LogicLadder[address] [id number] BY: [employer] Qkowdq3397 [facility] [id number] Protein Ql (U) Negative Normal [facility] Internal Medicine; [facility] Work Phone: Comment on above: Test(s) 354626-NZY-S ; 196320-YAQ-A; 961940-Tczrgboqlovrq; 923674-Ztyfoxlpzpj, Total; 464150-AVT-Z (Total); 210888-Yoeyw LDL-P; 029652-YFE Size; 541312-VH-ZZ Scorewas developed and its performance characteristics determinedby [employer]. It has not been cleared or approved by the Foodand Drug Administration.PATIENT WAS FASTINGPERFORMED BY: [address] [id number] BY: [employer] Amocnz2068 [facility] [id number] Specific gravity (U) [Rel density] 1.018 1 Normal 1.005-1.03 0 [facility]; [facility] Work Phone: Comment on above: Test(s) 412161-TGQ-N ; 623542-CSK-M; 758020-Ajryxgkttbfmr; 894027-Lrsgrtgppvk, Total; 163236-TCG-J (Total); 303535-Qufwu LDL-P; 913322-KJM Size; 242405-OH-IC Scorewas developed and its performance characteristics determinedby [employer]. It has not been cleared or approved by the Foodand Drug Administration.PATIENT WAS FASTINGPERFORMED BY: [address] [id number] BY: Smart Imaging SystemsRobert Wood Johnson University Hospital SomersetGmvfar6582 [facility] [id number] Urobilinogen (U) [Mass/Vol] 0.2 mg/dL Normal 0.2-1.0 [facility]; [facility] Work Phone: Comment on above: Test(s) 498319-RTB-J ; 042161-OJW-N; 200117-Gtazbpoaqeikz; 511054-Bysonizqvjz, Total; 544916-CSS-B (Total); 032603-Oevtk LDL-P; 117604-GUT Size; 216468-AF-BK Scorewas developed and its performance characteristics determinedby [employer]. It has not been cleared or approved by the Foodand Drug Administration.PATIENT WAS FASTINGPERFORMED BY: Smart [employer] Systems[address] [id number] BY: [employer] Wgkvyt5407 [facility] [id number] Krystal 12-14-2020 [facility] FREDERIC OVALLES SR ([id number]) 1960 M Date Time Provider Department 12/14/20 INTERVENTIONAL CLINICIAN RAFI During your visit today, we recorded the following information about you: Ximena Garvin Adm 12/14/2020 3:43 PM Signed Contacted patient in [...] Status:Closed by XIMENA GONZALEZ on 12/14/20 Normal [facility] Basophil percentageon 2019 Eosinophils/100 WBC (Bld) 6 % High 0-5 [facility] Blood platelet adequacy dete ction by light microscopyon 05-05-2020 Platelets LM Ql (Bld) ADEQUATE ADEQ [facility] - Hematology and Cell countson 05-05-2020 Lymphocytes/100 WBC (Bld) 20 % 19-41 [facility] Metamyelocytes/100 WBC (Bld) 3 % High 0-1 [facility] Monocytes/100 WBC (Bld) 5 % 0-10 [facility] Myelocytes/100 WBC (Bld) 1 % High 0-0 [facility] Neutrophils/100 WBC (Bld) 65 % 47-70 [facility] Potassiumon 05-05-2020 Potassium 6 % High 0-5 [facility] RBC morphologyon 05-05-2020 RBC morphology finding Nom (Bld) NORM C+C NORMAL NORM C&C [facility] Review by pathologiston 04-21 Pathologist review Miguel (Unsp spec) [Interp] Reviewed [facility] Comment on above: Previous reported re sult: Ayleen jose alfredo Edited by: NENO on 05/06/20:1247Leukocytosis with Neutrophilic left shift.Clinical correlation necessary.Ryan Tinoco M.D. 05/06/20 AMENDED REPORT 05/06/20 1247 PATH REV previously reported as: Ayleen veliz Total cell counton 0 Cells counted Molgen (Bld/Tiss) [#] 100 MANUAL DIFF [facility] Basophils/100 WBC Manual cnt (Unsp spec)on 04-28-2020 Basophils/100 WBC (Unsp spec) 2 % High 0-1 [facility] - Hematology and Cell countson 04-28-2020 Band form neutrophils/100 WBC (Bld) 12 % High 0-5 [facility] No Panel Informationon 04-28 Promyelocytes % 1 High 0-0 [facility] CBC W/AUTO DIFF WBC (04892)O rdered By: Fish Hatchery Worker on 04-26-2020 Basophils (Bld) [#/Vol] 0.6 {x10E3/uL} Abnormal 0.0-0.2 [facility] Work Phone: Comment on above: Test(s) 201620-HMV-U ; 622235-GOO-N; 926039-Gydfwrkzlxgic; 208627-Cjetoxhoizx, Total; 024489-UFB-C (Total); 094028-Kfvsj LDL-P; 979566-MEZ Size; 445627-VC-IT Scorewas developed and its performance characteristics determinedby [employer]. It has not been cleared or approved by the Foodand Drug Administration.PATIENT WAS FASTINGPERFORMED BY: BN LabCoNicole [place] [address] [facility] [id number] BY: LabEffdonRobert Wood Johnson University Hospital SomersetHihklh6698 [facility] [id number] Basophils (Bld) [#/Vol] 0.6 10*3/uL Abnormal 0.0-0.2 [facility]; [facility] Work Phone: Comment on above: Test(s) 008011-QCC-S ; 857909-TBG-L; 788380-Xrewaiuuqcfpi; 174011-Ozbhnwiibhf, Total; 858119-CVN-R (Total); 962163-Icjin LDL-P; 039010-AKA Size; 437081-LG-VW Scorewas developed and its performance characteristics determinedby [employer]. It has not been cleared or approved by the Foodand Drug Administration.PATIENT WAS FASTINGPERFORMED BY: [address] [id number] BY: [employer] Qlwhkv4868 [facility] [id number] Basophils/100 WBC (Bld) 2 % Normal [facility] Work Phone: Comment on above: Test(s) 561351-SSR-N ; 372902-WFJ-G; 697855-Dcdbuhqbvvvyy; 051173-Hlvkrkdicsl, Total; 998285-LRE-Y (Total); 412705-Mtcbt LDL-P; 341697-SKY Size; 839424-HU-DE Scorewas developed and its performance characteristics determinedby [employer]. It has not been cleared or approved by the Foodand Drug Administration.PATIENT WAS FASTINGPERFORMED BY: [address] [id number] BY: [employer] Meoppr3771 [facility] [id number] Eosinophils (Bld) [#/Vol] 2.0 {x10E3/uL} Abnormal 0.0-0.4 [facility] Work Phone: Comment on above: Test(s) 499941-IGS-G ; 767759-ZPX-L; 502154-Uygdskgbrxbcv; 393300-Qdolantgktu, Total; 600042-MHQ-D (Total); 479933-Afcqu LDL-P; 955118-UXD Size; 393675-OA-ND Scorewas developed and its performance characteristics determinedby [employer]. It has not been cleared or approved by the Foodand Drug Administration.PATIENT WAS FASTINGPERFORMED BY: [address] [id number] BY: [employer]6370 [facility] [id number] Eosinophils (Bld) [#/Vol] 2.0 10*3/uL Abnormal 0.0-0.4 [facility]; [facility] Work Phone: Comment on above: Test(s) 357690-OMB-Q ; 537230-YDL-C; 884436-Nrtudoxwscxxa; 792762-Ewbjynyfqrl, Total; 376569-KTH-V (Total); 282753-Gcnfk LDL-P; 831533-TXY Size; 304266-OI-JF Scorewas developed and its performance characteristics determinedby [employer]. It has not been cleared or approved by the Foodand Drug Administration.PATIENT WAS FASTINGPERFORMED BY: [address] [id number] BY: [employer]6370 [facility] [id number] Eosinophils/100 WBC (Bld) 7 % Normal [facility] Internal Medicine Work Phone: Comment on above: Test(s) 583816-ZEY-Q ; 962367-TTI-Y; 345162-Dplnkdzwplolt; 657959-Dcyipqlxpqx, Total; 999257-ZQF-N (Total); 903868-Wfftd LDL-P; 106372-DXE Size; 990087-VM-SQ Scorewas developed and its performance characteristics determinedby [employer]. It has not been cleared or approved by the Foodand Drug Administration.PATIENT WAS FASTINGPERFORMED BY: [address] [id number] BY: [employer]in6370 [facility] [id number] Erythrocyte distribution width (RBC) [Ratio] 13.6 % Normal 11.6-15.4 [facility] Work Phone: Comment on above: Test(s) 359419-UDU-X ; 991923-ZCH-H; 208331-Liotxeejwbsvp; 927022-Xbfygxapgcw, Total; 491851-JCM-L (Total); 379029-Byoqa LDL-P; 492101-ODX Size; 076265-KK-LD Scorewas developed and its performance characteristics determinedby [employer]. It has not been cleared or approved by the Foodand Drug Administration.PATIENT WAS FASTINGPERFORMED BY: [address] [id number] BY: [employer]6370 [facility] [id number] Hematocrit (Bld) [Volume fraction] 44.4 % Normal 37.5-51.0 [facility] Work Phone: Comment on above: Test(s) 837071-KIG-B ; 178222-RML-H; 732678-Etktentprknwn; 402827-Zyhlvunhiks, Total; 175543-NRJ-M (Total); 395395-Eyrqb LDL-P; 670405-ITR Size; 641425-YK-ZA Scorewas developed and its performance characteristics determinedby [employer]. It has not been cleared or approved by the Foodand Drug Administration.PATIENT WAS FASTINGPERFORMED BY: [address] [id number] BY: You.Do70 [facility] [id number] Hemoglobin (Bld) [Mass/Vol] 15.2 g/dL Normal 13.0-17.7 [facility] Work Phone: Comment on above: Test(s) 549959-DQP-Z ; 282390-TGA-X; 540217-Sbhywgnodlzhy; 286897-Rksxpdqcgbb, Total; 210004-JLD-S (Total); 970371-Xiiba LDL-P; 394576-UIR Size; 915878-GS-DV Scorewas developed and its performance characteristics determinedby [employer]. It has not been cleared or approved by the Foodand Drug Administration.PATIENT WAS FASTINGPERFORMED BY: [address] [id number] BY: [employer] Atntqh1483 [facility] [id number] Immature cells/100 WBC (Bld) Note Normal [facility] Work Phone: Comment on above: Test(s) 677678-VUM-R ; 827383-BWT-L; 134010-Xcbonuwvjiafw; 230518-Mkcogrpdvcs, Total; 028318-FQP-Q (Total); 875083-Ngyin LDL-P; 845469-ZQU Size; 880833-GP-BW Scorewas developed and its performance characteristics determinedby [employer]. It has not been cleared or approved by the Foodand Drug Administration.PATIENT WAS FASTINGPERFORMED BY: [employer] [address] [id number] BY: Smart Imaging SystemsRobert Wood Johnson University Hospital SomersetZttnxh9983 [facility] [id number] Lymphocytes (Bld) [#/Vol] 4.2 {x10E3/uL} Abnormal 0.7-3.1 [facility] Work Phone: Comment on above: Test(s) 265755-GSY-O ; 529882-ZKE-C; 098753-Lflcgzrglefqd; 822836-Poygbfihxlt, Total; 240926-QYZ-P (Total); 822707-Owglx LDL-P; 024202-OJT Size; 151189-OG-CF Scorewas developed and its performance characteristics determinedby [employer]. It has not been cleared or approved by the Foodand Drug Administration.PATIENT WAS FASTINGPERFORMED BY: [employer] [address] [id number] BY: Smart Imaging SystemsRobert Wood Johnson University Hospital SomersetMsklhn6453 [facility] [id number] Lymphocytes (Bld) [#/Vol] 4.2 10*3/uL Abnormal 0.7-3.1 [facility]; [facility] Work Phone: Comment on above: Test(s) 153876-XOT-T ; 274072-LEA-L; 056514-Balseyanngabe; 671700-Yelwrvjlobx, Total; 065999-YFO-I (Total); 531378-Fcybd LDL-P; 750676-NEW Size; 257258-DM-RK Scorewas developed and its performance characteristics determinedby [employer]. It has not been cleared or approved by the Foodand Drug Administration.PATIENT WAS FASTINGPERFORMED BY: [address] [id number] BY: Klypper70 [facility] [id number] Lymphocytes/100 WBC (Bld) 15 % Normal [facility] Work Phone: Comment on above: Test(s) 917320-VLC-S ; 764351-GZL-M; 827465-Kjqrhahbzbrnj; 569089-Ksmivuoswos, Total; 522666-EMV-X (Total); 876926-Qiwfa LDL-P; 973191-IPW Size; 625185-UK-WW Scorewas developed and its performance characteristics determinedby [employer]. It has not been cleared or approved by the Foodand Drug Administration.PATIENT WAS FASTINGPERFORMED BY: [address] [id number] BY: [employer]6370 [facility] [id number] MCH (RBC) [Entitic mass] 30.3 pg Normal 26.6-33.0 [facility] Internal Medicine Work Phone: Comment on above: Test(s) 478421-OOI-Y ; 232882-EZP-Y; 735495-Zlnmzrfrqudsl; 696335-Ljlpteomjcd, Total; 293371-GOG-G (Total); 689196-Sistx LDL-P; 923478-LHN Size; 746041-XQ-DU Scorewas developed and its performance characteristics determinedby [employer]. It has not been cleared or approved by the Foodand Drug Administration.PATIENT WAS FASTINGPERFORMED BY: [address] [id number] BY: [employer] Xtmfcg4708 [facility] [id number] MCHC (RBC) [Mass/Vol] 34.2 g/dL Normal 31.5-35.7 [facility] Internal Medicine Work Phone: Comment on above: Test(s) 924200-BFR-C ; 042040-DOW-J; 523964-Vhyrfguosdzti; 299512-Lstmcunrdgh, Total; 408743-EFX-Z (Total); 942467-Mhlwt LDL-P; 864493-CBD Size; 865710-CR-LV Scorewas developed and its performance characteristics determinedby [employer]. It has not been cleared or approved by the Foodand Drug Administration.PATIENT WAS FASTINGPERFORMED BY: [address] [id number] BY: You.Do70 [address] Fixstream Networks IncCannon Memorial Hospital [id number] MCV (RBC) [Entitic vol] 88 fL Normal 79-97 [facility] Internal [facility] Work Phone: Comment on above: Test(s) 825228-YFK-V ; 176249-HEQ-V; 969670-Rdxacunxonffj; 305738-Cdbieumtpyi, Total; 041539-PVW-O (Total); 009377-Sboan LDL-P; 298397-JMF Size; 885575-MS-OY Scorewas developed and its performance characteristics determinedby [employer]. It has not been cleared or approved by the Foodand Drug Administration.PATIENT WAS FASTINGPERFORMED BY: [address] [id number] BY: [employer] Apps6370 [facility]aneyColumbia Regional HospitalYuDoGlobalCannon Memorial Hospital [id number] Monocytes (Bld) [#/Vol] 2.0 {x10E3/uL} Abnormal 0.1-0.9 [facility] Work Phone: Comment on above: Test(s) 451108-XVG-C ; 373480-KVR-T; 662341-Wnnjqyyjyqvvx; 821489-Pgcnmbshvlx, Total; 040571-YZI-L (Total); 560542-Kgata LDL-P; 969041-NZY Size; 903133-GS-OV Scorewas developed and its performance characteristics determinedby [employer]. It has not been cleared or approved by the Foodand Drug Administration.PATIENT WAS FASTINGPERFORMED BY: [address] [id number] BY: You.Do70 [facility] [id number] Monocytes (Bld) [#/Vol] 2.0 10*3/uL Abnormal 0.1-0.9 [facility]; [facility] Work Phone: Comment on above: Test(s) 208576-MCR-N ; 212696-DNX-U; 560928-Ihfdzmohaibny; 400559-Lbmarlmmnyx, Total; 047056-UVL-E (Total); 685070-Nchdz LDL-P; 879126-GLY Size; 311636-AR-JW Scorewas developed and its performance characteristics determinedby [employer]. It has not been cleared or approved by the Foodand Drug Administration.PATIENT WAS FASTINGPERFORMED BY: LogicLadder[address] [id number] BY: [employer]6370 [address] [facility] [id number] Monocytes/100 WBC (Bld) 7 % Normal [facility] Work Phone: Comment on above: Test(s) 691837-MLC-J ; 794142-MOA-I; 237850-Wqetakihorcjt; 966454-Oyrilrnhrrw, Total; 999582-MQB-S (Total); 159494-Zmyhl LDL-P; 074633-JCG Size; 869218-RT-JR Scorewas developed and its performance characteristics determinedby [employer]. It has not been cleared or approved by the Foodand Drug Administration.PATIENT WAS FASTINGPERFORMED BY: LogicLadder[address] [id number] BY: [employer] Oawdeu1780 [facility] [id number] Morphology Miguel (Bld) [Interp] Note: Normal [facility] Work Phone: Comment on above: Manual differential was performed. Test(s) 328873-ZPY-Z ; 581041-LIT-H; 282700-Rftwglcuoudwl; 407833-Jnmbrvanmjp, Total; 991531-ZUU-S (Total); 256151-Jdllk LDL-P; 095703-XSN Size; 595868-PM-VP Scorewas developed and its performance characteristics determinedby [employer]. It has not been cleared or approved by the Foodand Drug Administration.PATIENT WAS FASTINGPERFORMED BY: [employer] [id number] BY: Smart Imaging SystemsRobert Wood Johnson University Hospital SomersetUhoofc6600 [facility] [id number] Neutrophils (Bld) [#/Vol] 15.5 {x10E3/uL} Abnormal 1.4-7.0 [facility] Work Phone: Comment on above: Test(s) 639787-EOV-U ; 571384-OAR-C; 597023-Goohdplqzyams; 241832-Cveratxphou, Total; 321049-CTV-Q (Total); 997119-Fgaub LDL-P; 119477-SKB Size; 406543-ET-LR Scorewas developed and its performance characteristics determinedby [employer]. It has not been cleared or approved by the Foodand Drug Administration.PATIENT WAS FASTINGPERFORMED BY: [employer] [address] [id number] BY: Smart Imaging SystemsUNM Children's Psychiatric CenterQnfcjq7007 [facility] [id number] Neutrophils (Bld) [#/Vol] 15.5 10*3/uL Abnormal 1.4-7.0 [facility]; [facility] Work Phone: Comment on above: Test(s) 804665-EMQ-R ; 471199-ACH-N; 394651-Xyypsvwlxrkpg; 131358-Pzycpmrynun, Total; 218218-FLQ-V (Total); 274058-Ahlio LDL-P; 482594-TPH Size; 706434-PV-KK Scorewas developed and its performance characteristics determinedby [employer]. It has not been cleared or approved by the Foodand Drug Administration.PATIENT WAS FASTINGPERFORMED BY: [employer] [id number] BY: Smart Imaging SystemsRobert Wood Johnson University Hospital SomersetHesank0931 [facility] [id number] Neutrophils/100 WBC (Bld) 55 % Normal [facility] Work Phone: Comment on above: Test(s) 019289-TZE-J ; 179858-SMR-G; 768795-Cozzozsxjvdtr; 274036-Watvllwdgem, Total; 212676-FBL-R (Total); 413299-Bgclv LDL-P; 330134-IYP Size; 600434-AC-ZV Scorewas developed and its performance characteristics determinedby [employer]. It has not been cleared or approved by the Foodand Drug Administration.PATIENT WAS FASTINGPERFORMED BY: [address] [id number] BY: [employer] Bljlzv4297 [facility] [id number] Platelets (Bld) [#/Vol] 209 {x10E3/uL} Normal 150-450 [facility] Work Phone: Comment on above: Test(s) 264331-HUD-R ; 487495-XYS-K; 914638-Xlkrclxnnfcdz; 028956-Ypcdqqlggjl, Total; 643085-GNB-J (Total); 190158-Jockq LDL-P; 968700-PFE Size; 693280-KP-ZA Scorewas developed and its performance characteristics determinedby [employer]. It has not been cleared or approved by the Foodand Drug Administration.PATIENT WAS FASTINGPERFORMED BY: [address] [id number] BY: [employer] Erjiih3354 [facility] [id number] Platelets (Bld) [#/Vol] 209 10*3/uL Normal 150-450 [facility]; [facility] Work Phone: Comment on above: Test(s) 061778-MIB-N ; 409044-PRG-M; 500677-Fpqnqysycqjmf; 106792-Fjtsclksrul, Total; 992122-UEN-K (Total); 064218-Btuvw LDL-P; 010342-SJK Size; 499564-YV-HJ Scorewas developed and its performance characteristics determinedby [employer]. It has not been cleared or approved by the Foodand Drug Administration.PATIENT WAS FASTINGPERFORMED BY: LogicLadderton1447 [facility] [id number] BY: [employer] Apps6370 [facility] [id number] RBC (Bld) [#/Vol] 5.02 {x10E6/uL} Normal 4.14-5.80 [facility] Internal Medicine Work Phone: Comment on above: Test(s) 148274-XPN-C ; 565125-KZY-B; 149228-Auhuvanjujlys; 043934-Norlikcqcwd, Total; 566757-ZOW-F (Total); 533774-Qebke LDL-P; 067068-PCF Size; 577675-FO-VG Scorewas developed and its performance characteristics determinedby [employer]. It has not been cleared or approved by the Foodand Drug Administration.PATIENT WAS FASTINGPERFORMED BY: LogicLadder[address] [id number] BY: [employer]6370 [facility] [id number] RBC (Bld) [#/Vol] 5.02 10*6/uL Normal 4.14-5.80 [facility] Internal Medicine; [facility] Internal Medicine Work Phone: Comment on above: Test(s) 004093-GHE-X ; 791769-ZPM-X; 772757-Ugvvabiadbwqn; 953256-Eckuwmiayhj, Total; 540370-PLH-F (Total); 671656-Kphen LDL-P; 169460-ANF Size; 013560-AX-ND Scorewas developed and its performance characteristics determinedby [employer]. It has not been cleared or approved by the Foodand Drug Administration.PATIENT WAS FASTINGPERFORMED BY: [address] [id number] BY: Forge Medicallin6370 [facility] [id number] WBC (Bld) [#/Vol] 28.1 {x10E3/uL} Abnormal 3.4-10.8 [facility] Internal Medicine Work Phone: Comment on above: Test(s) 288974-LGJ-Q ; 813500-LVQ-Q; 385518-Kwlnvhxousdbw; 789331-Mulrzvmoyff, Total; 445117-OUD-L (Total); 760303-Dahke LDL-P; 757546-ETU Size; 822896-JM-KT Scorewas developed and its performance characteristics determinedby [employer]. It has not been cleared or approved by the Foodand Drug Administration.PATIENT WAS FASTINGPERFORMED BY: [address] [id number] BY: You.Do70 [facility] [id number] WBC (Bld) [#/Vol] 28.1 10*3/uL Abnormal 3.4-10.8 [facility] Internal Medicine; [facility] Work Phone: Comment on above: Test(s) 703165-JCV-D ; 228932-OFI-M; 851087-Ahaxfxbjkgztt; 222432-Ocwajzltjib, Total; 072939-GFN-M (Total); 460000-Mnuyj LDL-P; 882671-TQO Size; 302813-PK-FZ Scorewas developed and its performance characteristics determinedby [employer]. It has not been cleared or approved by the Foodand Drug Administration.PATIENT WAS FASTINGPERFORMED BY: [address] [id number] BY: [employer] Myiugp5633 [facility] [id number] METABOLIC PANEL, COMPREHENSI VE (57291)Ordered By: Fish Hatchery Worker on 04-26-2020 Albumin [Mass/Vol] 4.3 g/dL Normal 3.8-4.9 [facility] Internal Medicine Work Phone: Comment on above: Test(s) 089655-XTT-J ; 647657-NER-N; 748462-Fzldttqukvmbo; 168163-Dmsrwiiuaaf, Total; 465796-BSL-I (Total); 997119-Hhqce LDL-P; 607168-LQB Size; 604736-HO-EI Scorewas developed and its performance characteristics determinedby [employer]. It has not been cleared or approved by the Foodand Drug Administration.PATIENT WAS FASTINGPERFORMED BY: [address] [id number] BY: Smart Imaging SystemsRobert Wood Johnson University Hospital SomersetJtukso1025 [facility] [id number] Albumin/Globulin [Mass ratio] 1.6 {ratio} Normal 1.2-2.2 [facility] Work Phone: Comment on above: Test(s) 876107-ZDS-L ; 362005-AAV-H; 348252-Znfuohginmrln; 267026-Miljdyiiwxc, Total; 214210-FXW-J (Total); 680849-Trcxz LDL-P; 359643-EOD Size; 742671-MC-CN Scorewas developed and its performance characteristics determinedby [employer]. It has not been cleared or approved by the Foodand Drug Administration.PATIENT WAS FASTINGPERFORMED BY: [address] [id number] BY: Forge Medic[employer]in6370 [facility] [id number] ALP [Catalytic activity/Vol] 79 [iU]/L Normal 39-117 [facility] Work Phone: Comment on above: Test(s) 357894-UHD-H ; 061416-BGV-L; 416308-Ixdqkkzbdrzxo; 187565-Sjjjzqbjfei, Total; 345186-LCH-P (Total); 866788-Rbsla LDL-P; 828217-VIB Size; 838759-MQ-ZN Scorewas developed and its performance characteristics determinedby [employer]. It has not been cleared or approved by the Foodand Drug Administration.PATIENT WAS FASTINGPERFORMED BY: [address] [id number] BY: Content CirclesRobert Wood Johnson University Hospital SomersetWpzbdp8605 [facility] [id number] ALP [Catalytic activity/Vol] 79 U/L Normal 39-117 [facility]; [facility] Work Phone: Comment on above: Test(s) 501857-ECP-W ; 312068-GYI-T; 212207-Yjejcelxsotiy; 969581-Awjdnmvxzwp, Total; 104659-DAP-T (Total); 474897-Ynlkh LDL-P; 737689-HXY Size; 855533-OS-ZQ Scorewas developed and its performance characteristics determinedby [employer]. It has not been cleared or approved by the Foodand Drug Administration.PATIENT WAS FASTINGPERFORMED BY: [employer] [id number] BY: [employer] Dqlfar9746 [facility] [id number] ALT [Catalytic activity/Vol] 29 [iU]/L Normal 0-44 [facility] Work Phone: Comment on above: Test(s) 513931-WZN-I ; 197760-EYG-C; 691517-Oyciymysxdzkt; 991971-Piwcwgxrdsk, Total; 563106-UCS-P (Total); 604698-Zrard LDL-P; 388636-UFY Size; 454502-DC-DL Scorewas developed and its performance characteristics determinedby [employer]. It has not been cleared or approved by the Foodand Drug Administration.PATIENT WAS FASTINGPERFORMED BY: [address] [id number] BY: You.Do70 [facility] [id number] ALT [Catalytic activity/Vol] 29 U/L Normal 0-44 [facility]; [facility] Work Phone: Comment on above: Test(s) 286154-DZO-B ; 173315-TBD-N; 757797-Sndtejsxztcvw; 909985-Fcuedyrefau, Total; 159459-NMD-E (Total); 545336-Wocio LDL-P; 657600-CLK Size; 476498-AS-GA Scorewas developed and its performance characteristics determinedby [employer]. It has not been cleared or approved by the Foodand Drug Administration.PATIENT WAS FASTINGPERFORMED BY: [employer] [id number] BY: [employer] Ifzesh1791 [facility] [id number] AST [Catalytic activity/Vol] 22 [iU]/L Normal 0-40 [facility] Work Phone: Comment on above: Test(s) 231416-GHL-X ; 170307-RPK-Y; 977716-Wsewpiccatvgb; 193774-Rdllnxrhswv, Total; 228207-QFG-D (Total); 666915-Okybw LDL-P; 911248-OJW Size; 996144-MC-IH Scorewas developed and its performance characteristics determinedby [employer]. It has not been cleared or approved by the Foodand Drug Administration.PATIENT WAS FASTINGPERFORMED BY: [address] [id number] BY: Smart Imaging SystemsRobert Wood Johnson University Hospital SomersetWrnbhm5129 [facility] [id number] AST [Catalytic activity/Vol] 22 U/L Normal 0-40 [facility] Internal Medicine; [facility] Internal Medicine Work Phone: Comment on above: Test(s) 429512-SOU-V ; 748065-UTR-S; 667336-Mmvkkddfjgxti; 801019-Zbpcjejxapv, Total; 674174-VAO-O (Total); 808313-Twrsc LDL-P; 401675-PRT Size; 139308-RO-AQ Scorewas developed and its performance characteristics determinedby [employer]. It has not been cleared or approved by the Foodand Drug Administration.PATIENT WAS FASTINGPERFORMED BY: [employer] [id number] BY: Smart Imaging SystemsRobert Wood Johnson University Hospital SomersetRpepeq6271 [facility] [id number] Bilirubin [Mass/Vol] 0.4 mg/dL Normal 0.0-1.2 [facility] Internal Medicine Work Phone: Comment on above: Test(s) 416651-IKP-H ; 483011-QDJ-X; 044624-Tmvjobbhwdeox; 427360-Mzkjvqqnrnh, Total; 540523-OYD-E (Total); 284560-Mzrbb LDL-P; 076683-XOQ Size; 295140-TE-CH Scorewas developed and its performance characteristics determinedby [employer]. It has not been cleared or approved by the Foodand Drug Administration.PATIENT WAS FASTINGPERFORMED BY: Acronis[address] [id number] BY: Smart Imaging SystemsRobert Wood Johnson University Hospital SomersetVvxpmn1543 [facility] [id number] Calcium [Mass/Vol] 9.2 mg/dL Normal 8.7-10.2 [facility] Internal Medicine Work Phone: Comment on above: Test(s) 093372-DFQ-A ; 237517-ZGG-M; 874503-Eyooqldpoybhe; 928665-Jzjedltwqhc, Total; 976212-WRJ-J (Total); 381022-Huoqz LDL-P; 412353-YBW Size; 981617-RD-DB Scorewas developed and its performance characteristics determinedby [employer]. It has not been cleared or approved by the Foodand Drug Administration.PATIENT WAS FASTINGPERFORMED BY: [address] [id number] BY: [employer]6370 [facility] [id number] Chloride [Moles/Vol] 104 mmol/L Normal 96-106 [facility] Internal Medicine Work Phone: Comment on above: Test(s) 425233-WSW-K ; 073616-ZXD-L; 793370-Cfsegihmrburp; 149989-Hywzsrihymx, Total; 590218-DBY-O (Total); 176503-Twcld LDL-P; 635520-TIM Size; 730765-XX-LU Scorewas developed and its performance characteristics determinedby [employer]. It has not been cleared or approved by the Foodand Drug Administration.PATIENT WAS FASTINGPERFORMED BY: Acronis[address] [id number] BY: Smart Imaging SystemsRobert Wood Johnson University Hospital SomersetOezhmj8500 [facility] [id number] CO2 [Moles/Vol] 25 mmol/L Normal 20-[address] [facility] Internal Medicine Work Phone: Comment on above: Test(s) 753348-PLJ-C ; 458869-GCY-P; 180767-Aqtibflfuldrt; 114770-Tpdxwejuksz, Total; 847191-TYU-U (Total); 598040-Ysull LDL-P; 463608-OKQ Size; 494150-AX-EX Scorewas developed and its performance characteristics determinedby [employer]. It has not been cleared or approved by the Foodand Drug Administration.PATIENT WAS FASTINGPERFORMED BY: LogicLadder[address] [id number] BY: [employer] Kyjxnj5881 [facility] [id number] Creatinine [Mass/Vol] 0.84 mg/dL Normal 0.76-1.27 [facility] Work Phone: Comment on above: Test(s) 237264-VIJ-X ; 670832-KJP-P; 891569-Fexgcrwlifjpu; 029028-Lodjmskvpij, Total; 273696-GXB-T (Total); 671069-Ubfcm LDL-P; 418499-YMM Size; 712538-VC-OY Scorewas developed and its performance characteristics determinedby [employer]. It has not been cleared or approved by the Foodand Drug Administration.PATIENT WAS FASTINGPERFORMED BY: [address] [id number] BY: [employer] Bmjyaf0762 [facility] [id number] GFR/1.73 sq M predicted among blacks CKD-EPI (S/P/Bld) [Vol rate/Area] 111 mL/min/1.73 Normal [facility] Internal Medicine Work Phone: Comment on above: Test(s) 795730-AEV-M ; 528157-IZM-J; 227295-Llmnaiessidcx; 601341-Aqklkmqusao, Total; 325896-VHZ-Y (Total); 899472-Nijti LDL-P; 300186-TRP Size; 319353-EF-XS Scorewas developed and its performance characteristics determinedby [employer]. It has not been cleared or approved by the Foodand Drug Administration.PATIENT WAS FASTINGPERFORMED BY: [address] [id number] BY: [employer] Uistyt4561 [facility] [id number] GFR/1.73 sq M predicted among non-blacks CKD-EPI (S/P/Bld) [Vol rate/Area] 96 mL/min/1.73 Normal [facility] Work Phone: Comment on above: Test(s) 822142-XLW-D ; 072231-ZTF-L; 065451-Nvqnixpsrugdk; 451650-Yqkpmtquogt, Total; 410662-VEC-L (Total); 754785-Yvomj LDL-P; 533307-DNN Size; 051177-DV-KH Scorewas developed and its performance characteristics determinedby [employer]. It has not been cleared or approved by the Foodand Drug Administration.PATIENT WAS FASTINGPERFORMED BY: [address] [id number] BY: [employer]6370 [facility] [id number] Globulin (S) [Mass/Vol] 2.7 g/dL Normal 1.5-4.5 [facility] Work Phone: Comment on above: Test(s) 599909-NHX-P ; 085621-WFO-O; 184252-Vgcgtnpdjoixy; 147576-Zxvqdfrpoac, Total; 697630-ORF-K (Total); 776457-Rxfon LDL-P; 069348-GLQ Size; 299749-CS-KZ Scorewas developed and its performance characteristics determinedby [employer]. It has not been cleared or approved by the Foodand Drug Administration.PATIENT WAS FASTINGPERFORMED BY: [address] [id number] BY: [employer]6370 [facility] [id number] Glucose [Mass/Vol] 116 mg/dL Abnormal 65-99 [facility] Internal Medicine Work Phone: Comment on above: Test(s) 722362-SGD-O ; 382761-KOP-H; 669402-Dwfjawdayaffx; 727603-Hqevapzynlj, Total; 453463-WMU-W (Total); 848494-Lpdzf LDL-P; 806221-LJV Size; 125503-TB-ML Scorewas developed and its performance characteristics determinedby [employer]. It has not been cleared or approved by the Foodand Drug Administration.PATIENT WAS FASTINGPERFORMED BY: LogicLadder[address] [id number] BY: [employer] Sluwrg9771 [facility] [id number] Potassium [Moles/Vol] 4.5 mmol/L Normal 3.5-5.2 [facility] Internal Medicine Work Phone: Comment on above: Test(s) 120916-NOJ-K ; 115578-BRD-D; 675082-Cqjwuxfqutgth; 083155-Upiaidairgr, Total; 051168-RFS-X (Total); 129527-Vlupj LDL-P; 430743-FXK Size; 453282-FB-QP Scorewas developed and its performance characteristics determinedby [employer]. It has not been cleared or approved by the Foodand Drug Administration.PATIENT WAS FASTINGPERFORMED BY: [address] [id number] BY: [employer] Ahmjgk4417 [facility] [id number] Protein [Mass/Vol] 7.0 g/dL Normal 6.0-8.5 [facility] Internal Medicine Work Phone: Comment on above: Test(s) 665652-ADZ-I ; 645387-EAD-D; 699219-Fyvfkwqedkcik; 637514-Ljygyqdaggo, Total; 006199-WSG-N (Total); 672592-Msmhn LDL-P; 283386-DRE Size; 516666-LM-LZ Scorewas developed and its performance characteristics determinedby [employer]. It has not been cleared or approved by the Foodand Drug Administration.PATIENT WAS FASTINGPERFORMED BY: [address] [id number] BY: [employer] Mqdxsq3040 [facility] [id number] Sodium [Moles/Vol] 143 mmol/L Normal 134-144 [facility] Internal Medicine Work Phone: Comment on above: Test(s) 285586-ADI-Y ; 165939-FCU-D; 380496-Pglqakncjumod; 921714-Vidyshzcufl, Total; 770481-IRU-W (Total); 021404-Dwpte LDL-P; 163148-QYK Size; 269378-UA-SL Scorewas developed and its performance characteristics determinedby [employer]. It has not been cleared or approved by the Foodand Drug Administration.PATIENT WAS FASTINGPERFORMED BY: [address] [id number] BY: [employer] Kbxynd9589 [facility] [id number] Urea nitrogen [Mass/Vol] 11 mg/dL Normal 6-24 [facility] Internal Medicine Work Phone: Comment on above: Test(s) 397573-RFZ-J ; 135844-NLV-H; 789286-Jfcfgfofpbbmc; 561515-Xdglqhufmit, Total; 024114-WWH-D (Total); 847091-Dbowg LDL-P; 895912-XUK Size; 066076-HG-TJ Scorewas developed and its performance characteristics determinedby [employer]. It has not been cleared or approved by the Foodand Drug Administration.PATIENT WAS FASTINGPERFORMED BY: [address] [id number] BY: [employer] Ocouqt9055 [facility] [id number] Urea nitrogen/Creatinine [Mass ratio] 13 mg/mg Normal 9-20 [facility] Work Phone: Comment on above: Test(s) 495323-DFD-T ; 381599-DXE-U; 097090-Ecoexnztgepys; 671369-Eoiajfwtgwv, Total; 381917-IUX-X (Total); 505656-Wrkkj LDL-P; 516611-HZJ Size; 517950-SH-ZP Scorewas developed and its performance characteristics determinedby [employer]. It has not been cleared or approved by the Foodand Drug Administration.PATIENT WAS FASTINGPERFORMED BY: Acronis[address] [id number] BY: Smart Imaging SystemsRobert Wood Johnson University Hospital SomersetPezxvk9729 [facility] [id number] MICROALBUMINOrdered By: Syst em Fretted Instrument Inspector on 04-26-2020 Albumin DL <= 20 mg/L (U) [Mass/Vol] 8.7 ug/mL Normal [facility] Work Phone: Comment on above: Test(s) 655600-MKP-X ; 551232-USM-T; 987493-Kpdczjppzqvtg; 768563-Ewrwmeokjtt, Total; 968169-EAD-Z (Total); 759186-Owqrz LDL-P; 851687-IXC Size; 986566-PV-ME Scorewas developed and its performance characteristics determinedby [employer]. It has not been cleared or approved by the Foodand Drug Administration.PATIENT WAS FASTINGPERFORMED BY: Acronis[address] [id number] BY: Smart Imaging SystemsRobert Wood Johnson University Hospital SomersetOirvdg[address] [place] [address] [id number] Albumin/Creatinine (U) [Mass ratio] 7 {mg/g_creat} Normal 0-29 [facility] Work Phone: Comment on above: Normal: 0 - 29 Moder ately increased: 30 - 300 Severely increased: >300 Please note reference interval change Test(s) 435716-RBT-R ; 872622-QXW-Q; 177068-Hglxvevrovnyd; 320476-Qywngnlqwhz, Total; 065596-RHG-E (Total); 184239-Rjtom LDL-P; 141424-VAM Size; 029156-RR-YK Scorewas developed and its performance characteristics determinedby [employer]. It has not been cleared or approved by the Foodand Drug Administration.PATIENT WAS FASTINGPERFORMED BY: [address]ronis[address] [id number] BY: [employer] Imaging SystemsChristopher Ville 7133670 [facility] [id number] Creatinine (U) [Mass/Vol] 121.5 mg/dL Normal [facility] Work Phone: Comment on above: Test(s) 443332-IYG-M ; 719405-TQE-P; 557837-Kvurxgremmfnx; 283839-Cbdafwmaneu, Total; 563288-RMW-H (Total); 999093-Bjicg LDL-P; 803848-KRY Size; 727818-SG-ED Scorewas developed and its performance characteristics determinedby [employer]. It has not been cleared or approved by the Foodand Drug Administration.PATIENT WAS FASTINGPERFORMED BY: Labelby.me[address] [place] [address] [id number] BY: [employer] Ilsgde2734 [facility] [id number] NMR Profile (97295)Ordered B y: Fish Hatchery Worker on 04-26-2020 Cholesterol [Mass/Vol] 142 mg/dL Normal 100-199 [facility] Internal Medicine Work Phone: Comment on above: Test(s) 496985-MXB-T ; 839403-VTM-L; 872719-Jrvnptrkvxdot; 431166-Slxbgevxexe, Total; 633559-SML-S (Total); 212886-Sktuo LDL-P; 116195-AFH Size; 616957-FO-SB Scorewas developed and its performance characteristics determinedby [employer]. It has not been cleared or approved by the Foodand Drug Administration.PATIENT WAS FASTINGPERFORMED BY: LogicLadder[address] [id number] BY: [employer] Mgssmz5063 [facility] [id number] Lipoprotein.alpha [Moles/Vol] 31.2 umol/L Normal [facility] Internal Medicine Work Phone: Comment on above: Test(s) 324608-NPI-J ; 420316-VXZ-H; 443105-Tvhsycjlxmtkc; 153677-Qhcdrxupjgw, Total; 527349-CYB-V (Total); 496260-Hdaaz LDL-P; 486413-HCH Size; 154363-EU-RQ Scorewas developed and its performance characteristics determinedby [employer]. It has not been cleared or approved by the Foodand Drug Administration.PATIENT WAS FASTINGPERFORMED BY: [employer] [address] [id number] BY: [employer] Jwffyn8396 [facility] [id number] Lipoprotein.beta.subpar ticle [Entitic length] 19.6 nm Abnormal Comprehen rosae Internal Medicine Work Phone: Comment on above: [...] not afterLDL-P is taken into account. Test(s) 318994-OYA-P ; 072331-VQU-F; 539326-Mhqudtfijlwqo; 085315-Fbijndetupl, Total; 098114-YOL-F (Total); 766284-Yzvhz LDL-P; 837149-CRY Size; 178520-PM-SO Scorewas developed and its performance characteristics determinedby [employer]. It has not been cleared or approved by the Foodand Drug Administration.PATIENT WAS FASTINGPERFORMED BY: [employer] [address] [id number] BY: [employer] Qkieif7936 [facility] [id number] Lipoprotein.beta.subpar ticle [Moles/Vol] 711 nmol/L Normal [facility] Work Phone: Comment on above: Low < 1000 Moderate 1000 - 1299 Borderline-High 1300 - 1599 High 1600 - 2000 Very High > 2000 Test(s) 543744-VTQ-X ; 232614-VBS-I; 740471-Xabcqdozkqvaj; 206303-Plnkpzoanlm, Total; 110771-HKB-F (Total); 000221-Kpkst LDL-P; 681862-YIJ Size; 395005-TZ-QY Scorewas developed and its performance characteristics determinedby [employer]. It has not been cleared or approved by the Foodand Drug Administration.PATIENT WAS FASTINGPERFORMED BY: [address] [id number] BY: [employer] Apps6370 [facility] [id number] Lipoprotein.beta.subpar ticle.small [Moles/Vol] 545 nmol/L Abnormal Comprehe nsive Internal Medicine Work Phone: Comment on above: Test(s) 080520-QKW-J ; 260066-TAF-Q; 351813-Ofrorrimhdqfd; 181202-Ynyjleloocr, Total; 800080-YWG-K (Total); 392307-Asqpz LDL-P; 525355-UBA Size; 003343-KT-HO Scorewas developed and its performance characteristics determinedby [employer]. It has not been cleared or approved by the Foodand Drug Administration.PATIENT WAS FASTINGPERFORMED BY: [employer] [id number] BY: [employer] Xjsxnp4077 [facility] [id number] Triglyceride [Mass/Vol] 326 mg/dL Abnormal 0-149 C omprehensive Internal Medicine Work Phone: Comment on above: Test(s) 241109-BPW-Q ; 030807-BKO-S; 455414-Jobizgmkkzfgl; 102423-Syroevtrosk, Total; 095495-NPN-G (Total); 320955-Olseo LDL-P; 360268-ICV Size; 493125-GA-LU Scorewas developed and its performance characteristics determinedby [employer]. It has not been cleared or approved by the Foodand Drug Administration.PATIENT WAS FASTINGPERFORMED BY: LogicLadder[address] [id number] BY: [employer] Imaging SystemsRobert Wood Johnson University Hospital SomersetMyarpo1380 [facility] [id number] NMR Profile (75103) 37 mg/dL Abnormal [facility] Internal Medicine Work Phone: Comment on above: Test(s) 843569-JNW-P ; 898292-JEF-U; 515701-Iucvjaaytbrjr; 369766-Pumptjwjpoi, Total; 348212-MGK-J (Total); 512367-Ghdti LDL-P; 943854-PLH Size; 743496-TK-UT Scorewas developed and its performance characteristics determinedby [employer]. It has not been cleared or approved by the Foodand Drug Administration.PATIENT WAS FASTINGPERFORMED BY: [address] [id number] BY: [employer] Zdjqjx2035 [facility] [id number] NMR Profile (45722) 55 mg/dL Normal 0-99 [facility] Internal Medicine Work Phone: Comment on above: . Optimal < 100 Abov e optimal 100 - 129 Borderline 130 - 159 High 160 - 189 Very high > 189 . Test(s) 609632-MBB-H ; 085588-NCE-V; 251888-Hrdaygkcdoxgf; 778967-Kmsmblqeajb, Total; 630404-IQY-W (Total); 689086-Nqubz LDL-P; 155065-SUX Size; 890031-LK-XY Scorewas developed and its performance characteristics determinedby [employer]. It has not been cleared or approved by the Foodand Drug Administration.PATIENT WAS FASTINGPERFORMED BY: LogicLadder[address] [id number] BY: [employer] Apps6370 [facility] [id number] NMR Profile (71030) 326 mg/dL Abnormal 0-149 Compr ehensive Internal Medicine; [facility] Work Phone: NMR Profile (98714) 142 mg/dL Normal 100-199 Compr ehensive Internal Medicine; [facility] Work Phone: TSH (32670)Ordered By: Tetraphase Pharmaceuticalse m Fretted Instrument Inspector on 04-26-2020 TSH Qn 2.490 {uIU/mL} Normal 0.450-4.50 0 [facility] Work Phone: Comment on above: Test(s) 477539-ROB-Z ; 596302-LBN-X; 406772-Qwlrtddjrxoez; 380954-Pyenkfzagaz, Total; 371837-PGH-M (Total); 060188-Bggzq LDL-P; 059621-EUK Size; 431901-GM-BV Scorewas developed and its performance characteristics determinedby [employer]. It has not been cleared or approved by the Foodand Drug Administration.PATIENT WAS FASTINGPERFORMED BY: LogicLadder[address] [id number] BY: [employer] Apps6370 [facility] [id number] URINALYSIS, W/ MICRO (77157) Ordered By: Fish Hatchery Worker on 04-26-2020 Appearance (U) Clear Normal Comprehens arianna Internal Medicine Work Phone: Comment on above: Test(s) 235330-KPD-I ; 216229-QWF-T; 248765-Meozzvzlbtunk; 365494-Wnxhbnzhuqb, Total; 094026-OUB-M (Total); 998672-Syxck LDL-P; 078033-BUK Size; 281731-YV-MD Scorewas developed and its performance characteristics determinedby [employer]. It has not been cleared or approved by the Foodand Drug Administration.PATIENT WAS FASTINGPERFORMED BY: [address] [id number] BY: [employer] Apps6370 [facility] [id number] Bilirubin Ql (U) Negative Normal Comprehe nsive Internal Medicine Work Phone: Comment on above: Test(s) 129402-CVO-N ; 115086-CIX-P; 310133-Qbekhcmneatwq; 249987-Krflyvnnvlk, Total; 047139-JDN-A (Total); 961756-Xekll LDL-P; 818135-TLU Size; 575246-UI-XI Scorewas developed and its performance characteristics determinedby [employer]. It has not been cleared or approved by the Foodand Drug Administration.PATIENT WAS FASTINGPERFORMED BY: [address] [id number] BY: Smart Imaging SystemsRobert Wood Johnson University Hospital SomersetPqfxrl1357 [facility] [id number] Bilirubin Ql (U) Negative Normal Comprehe nsive Internal Medicine; [facility] Work Phone: Comment on above: Test(s) 887564-BRN-C ; 634183-EZR-E; 504714-Jntvvqeobuvja; 595968-Ljrlcewkrbb, Total; 498281-YHD-J (Total); 024154-Tiuip LDL-P; 784859-EMO Size; 322881-SE-KD Scorewas developed and its performance characteristics determinedby [employer]. It has not been cleared or approved by the Foodand Drug Administration.PATIENT WAS FASTINGPERFORMED BY: [address] [id number] BY: Smart Imaging SystemsRobert Wood Johnson University Hospital SomersetMdioty7429 [facility] [id number] Color (U) Yellow Normal [facility] Work Phone: Comment on above: Test(s) 401716-QQA-V ; 604297-CJL-U; 649442-Epukqmyhrnihg; 069700-Obsknftjyeq, Total; 491318-VVA-D (Total); 482040-Wxqpg LDL-P; 944634-MPM Size; 618741-KJ-MH Scorewas developed and its performance characteristics determinedby [employer]. It has not been cleared or approved by the Foodand Drug Administration.PATIENT WAS FASTINGPERFORMED BY: BN LabCo[address] [id number] BY: [place] 1731070 [facility] [id number] Glucose Ql (U) Negative Normal Comprehens arianna Internal Medicine Work Phone: Comment on above: Test(s) 039953-ZPK-P ; 670902-PVT-A; 347696-Paarcqvnwlfgo; 641689-Eifjmfifsfj, Total; 004711-XZM-F (Total); 507877-Frrkp LDL-P; 212110-NTC Size; 999453-DB-OV Scorewas developed and its performance characteristics determinedby [employer]. It has not been cleared or approved by the Foodand Drug Administration.PATIENT WAS FASTINGPERFORMED BY: [employer] Systems[address] [id number] BY: Smart Imaging SystemsChristopher Ville 7133670 [facility] [id number] Glucose Ql (U) Negative Normal Comprehens arianna Internal Medicine; [facility] Internal Medicine Work Phone: Comment on above: Test(s) 033980-KVD-G ; 318320-QTY-A; 141775-Whvhbkkesnaio; 190188-Lqgopzaryzk, Total; 640426-LYD-Q (Total); 506995-Kqgfz LDL-P; 782490-JVT Size; 161968-RU-CE Scorewas developed and its performance characteristics determinedby [employer]. It has not been cleared or approved by the Foodand Drug Administration.PATIENT WAS FASTINGPERFORMED BY: NanoNord[address] [id number] BY: [facility]6370 [facility] [id number] Hemoglobin Ql (U) Negative Normal Compreh ensive Internal Medicine Work Phone: Comment on above: Test(s) 167312-NJD-E ; 099642-JNK-O; 344749-Lxouikqyqidpr; 719941-Vyuoaennilc, Total; 212204-SGV-J (Total); 037595-Elbvl LDL-P; 438914-OKC Size; 073411-HI-JI Scorewas developed and its performance characteristics determinedby [employer]. It has not been cleared or approved by the Foodand Drug Administration.PATIENT WAS FASTINGPERFORMED BY: [employer] [id number] BY: [employer] Rjnlug0837 [facility] [id number] Hemoglobin Ql (U) Negative Normal Compreh ensive Internal Medicine; [facility] Work Phone: Comment on above: Test(s) 732024-PHP-F ; 825218-ILH-C; 302083-Vowfpzooqlohf; 695276-Icutihgkbxd, Total; 792520-SBM-A (Total); 115256-Rmdka LDL-P; 918017-LCW Size; 886645-EB-RW Scorewas developed and its performance characteristics determinedby [employer]. It has not been cleared or approved by the Foodand Drug Administration.PATIENT WAS FASTINGPERFORMED BY: [address] [id number] BY: You.Do70 [facility] [id number] Ketones Ql (U) Negative Normal Comprehens arianna Internal Medicine Work Phone: Comment on above: Test(s) 319952-AMJ-L ; 514372-QMN-B; 893729-Bccpnljtonute; 137292-Wrnmfqmpveu, Total; 010566-NOI-L (Total); 863739-Lgtzb LDL-P; 181066-FTU Size; 775820-AR-IH Scorewas developed and its performance characteristics determinedby [employer]. It has not been cleared or approved by the Foodand Drug Administration.PATIENT WAS FASTINGPERFORMED BY: [employer] [address] [id number] BY: Smart Imaging SystemsRobert Wood Johnson University Hospital SomersetGrmwsm7821 [facility] [id number] Ketones Ql (U) Negative Normal Comprehens arianna Internal Medicine; [facility] Work Phone: Comment on above: Test(s) 813659-XOO-T ; 084475-SVE-R; 016417-Lixgpdczlxzey; 572414-Sfzzqavxasq, Total; 444745-HXA-D (Total); 798477-Fnupj LDL-P; 174695-NEP Size; 987121-RI-JP Scorewas developed and its performance characteristics determinedby [employer]. It has not been cleared or approved by the Foodand Drug Administration.PATIENT WAS FASTINGPERFORMED BY: [address] [id number] BY: Klypper70 [facility] [id number] Leukocyte esterase Test strip Ql (U) Negative Normal [facility] Work Phone: Comment on above: Test(s) 834034-UFA-Z ; 550684-URR-U; 775198-Xybpjvrdvceom; 004758-Ymwfyqzbjck, Total; 105582-FXK-D (Total); 861901-Aattg LDL-P; 353532-UGC Size; 960317-XS-FH Scorewas developed and its performance characteristics determinedby [employer]. It has not been cleared or approved by the Foodand Drug Administration.PATIENT WAS FASTINGPERFORMED BY: [address] [id number] BY: You.Do70 [facility] [id number] Leukocyte esterase Test strip Ql (U) Negative Normal [facility]; [facility] Work Phone: Comment on above: Test(s) 879342-BYR-R ; 307249-QCM-I; 219051-Fjbtonnegyhyi; 308152-Cxqqhjmpbcc, Total; 273106-UJM-T (Total); 245248-Jbeas LDL-P; 943184-KAD Size; 733457-KQ-NC Scorewas developed and its performance characteristics determinedby [employer]. It has not been cleared or approved by the Foodand Drug Administration.PATIENT WAS FASTINGPERFORMED BY: [address] [id number] BY: You.Do70 [facility] [id number] Microscopic observation LM Nom (Urine sed) MICRON Normal [facility] Work Phone: Comment on above: Microscopic follows if indicated. Test(s) 621455-KVF-V ; 119673-WOB-L; 792267-Tcbbwassussof; 759359-Tgroxdqgdxg, Total; 270126-WWD-M (Total); 646834-Uhlbf LDL-P; 331336-BHB Size; 581300-AK-RU Scorewas developed and its performance characteristics determinedby [employer]. It has not been cleared or approved by the Foodand Drug Administration.PATIENT WAS FASTINGPERFORMED BY: LogicLadder[address] [id number] BY: You.Do70 [facility] [id number] Microscopic observation LM Nom (Urine sed) See below: Normal [facility] Work Phone: Comment on above: Microscopic was lynnette cated and was performed. Test(s) 308411-SLH-L ; 170286-AZF-M; 024111-Psheolmytzbep; 690711-Tnbnnvywchr, Total; 433107-UBI-M (Total); 410361-Qdfno LDL-P; 837569-NYR Size; 905480-HV-HF Scorewas developed and its performance characteristics determinedby [employer]. It has not been cleared or approved by the Foodand Drug Administration.PATIENT WAS FASTINGPERFORMED BY: [address] [id number] BY: [employer] Pewrwm8622 [facility] [id number] Nitrite Ql (U) Negative Normal Comprehens arianna Internal Medicine Work Phone: Comment on above: Test(s) 773646-JZD-E ; 585136-WMT-X; 824852-Puhliqcyqtgko; 535116-Aovftjmrmcj, Total; 033195-BQJ-V (Total); 328468-Ptanh LDL-P; 228687-QYG Size; 296450-PU-BP Scorewas developed and its performance characteristics determinedby [employer]. It has not been cleared or approved by the Foodand Drug Administration.PATIENT WAS FASTINGPERFORMED BY: Acronis[address] [id number] BY: [employer] Imaging SystemsUNM Children's Psychiatric CenterNkteax6631 [facility] [id number] Nitrite Ql (U) Negative Normal Comprehens arianna Internal Medicine; [facility] Work Phone: Comment on above: Test(s) 064273-RCC-N ; 827011-KFR-U; 967641-Iavfpablfissp; 229868-Wwixwiponjo, Total; 923816-PKT-D (Total); 345815-Byvba LDL-P; 431368-CFG Size; 611035-HK-MW Scorewas developed and its performance characteristics determinedby [employer]. It has not been cleared or approved by the Foodand Drug Administration.PATIENT WAS FASTINGPERFORMED BY: [address] [id number] BY: You.Do70 [facility] [id number] pH (U) 8.0 [pH] Abnormal 5.0-7.5 [facility] Work Phone: Comment on above: Test(s) 851123-AYO-T ; 404203-LTF-E; 756808-Xahqxdvsbottz; 342035-Gyvpjmlozly, Total; 189352-BJX-Y (Total); 496428-Ufojc LDL-P; 011917-GQB Size; 317008-XU-GO Scorewas developed and its performance characteristics determinedby [employer]. It has not been cleared or approved by the Foodand Drug Administration.PATIENT WAS FASTINGPERFORMED BY: [address] [id number] BY: Content [employer] Gelges9155 [facility] [id number] Protein Ql (U) Negative Normal Comprehens airanna Internal Medicine Work Phone: Comment on above: Test(s) 486722-ZRG-I ; 526258-HVS-J; 234135-Ijhjndobwdhdu; 513470-Tglqlfmzvtt, Total; 524593-DDR-E (Total); 826337-Lwylh LDL-P; 757503-MNK Size; 737422-VI-HK Scorewas developed and its performance characteristics determinedby [employer]. It has not been cleared or approved by the Foodand Drug Administration.PATIENT WAS FASTINGPERFORMED BY: [address] [id number] BY: You.Do70 [facility] [id number] Protein Ql (U) Negative Normal Comprehens arianna Internal Medicine; [facility] Work Phone: Comment on above: Test(s) 962266-RPY-W ; 019272-KHC-U; 906362-Jxgxaxsiikdcn; 478711-Zyxcmbiotli, Total; 986799-CIJ-C (Total); 643139-Sxbye LDL-P; 293541-CQW Size; 765756-CI-RI Scorewas developed and its performance characteristics determinedby [employer]. It has not been cleared or approved by the Foodand Drug Administration.PATIENT WAS FASTINGPERFORMED BY: [address] [id number] BY: You.Do70 [facility] [id number] Specific gravity (U) [Rel density] 1.018 1 Normal 1.005-1.03 0 [facility] Work Phone: Comment on above: Test(s) 538581-RWX-G ; 313972-GTM-M; 067116-Ekxaecasucevj; 714254-Thburteymif, Total; 926505-AKD-H (Total); 460472-Sciks LDL-P; 168674-NIY Size; 964594-CL-ZJ Scorewas developed and its performance characteristics determinedby [employer]. It has not been cleared or approved by the Foodand Drug Administration.PATIENT WAS FASTINGPERFORMED BY: [address] [id number] BY: [employer]6370 [facility] [id number] Urobilinogen (U) [Mass/Vol] 0.2 mg/dL Normal 0.2-1.0 [facility]; [facility] Work Phone: Comment on above: Test(s) 996575-ZWM-A ; 858192-HBO-E; 160879-Ahyukxbewixux; 223688-Jcycgxwpela, Total; 910782-INO-V (Total); 958462-Ajjzw LDL-P; 850449-QVC Size; 631574-LY-VX Scorewas developed and its performance characteristics determinedby [employer]. It has not been cleared or approved by the Foodand Drug Administration.PATIENT WAS FASTINGPERFORMED BY: Quantified [employer] [facility] [id number] BY: You.Do70 [facility] [id number] Urobilinogen Test strip (U) [Mass/Vol] 0.2 mg/dL Normal 0.2-1.0 [facility] Internal Medicine Work Phone: Comment on above: Test(s) 128763-ZCQ-I ; 659423-PAK-A; 806951-Nbwjgstpfestq; 877342-Ahciaprxfbw, Total; 333613-UFU-O (Total); 609228-Papxb LDL-P; 921509-EFF Size; 856182-WW-KH Scorewas developed and its performance characteristics determinedby [employer]. It has not been cleared or approved by the Foodand Drug Administration.PATIENT WAS FASTINGPERFORMED BY: Quantified [employer] [facility] [id number] BY: [employer]6370 [facility] [id number] Erythrocyte sedimentation ra leonard 03-07-2020 ESR (Bld) [Velocity] 14 mm/h 0-20 [facility] No Panel Informationon 03-07 Prostate Specific Antigen Screen 2.19 ng/mL 0.00-4.00 [facility] Comment on above: This test was perfor med using the TPSA assay method for theInnovative Med ConceptsOceans[employer] Systems chemistry system. Values obtained with differentassay methods cannot be used interchangably.When changing PSA assays in the course of monitoring apatient, additional sequential testing should be carriedout to confirm baseline values. Thin prep Papanicolaou smear with manual screeningon 03-07-2020 Thin prep Papanicolaou smear with manual screening 248 U/L 87-241 [facility] CBC with auto diff (24441)Or dered By: Fish Hatchery Worker on 02-11-2020 Basophils (Bld) [#/Vol] 0.7 {x10E3/uL} Abnormal 0.0-0.2 [facility] Work Phone: Comment on above: PATIENT NOT FASTINGP ERFORMED BY: CB [facility] Zuidsu[address] [facility] [id number] BY: CLCIN [facility] [place] [address]14[address] [facility] [address] [id number] Basophils (Bld) [#/Vol] 0.7 10*3/uL Abnormal 0.0-0.2 [facility]; [facility] Work Phone: Comment on above: PATIENT NOT FASTINGP ERFORMED BY: CB [facility] Aorsfg4189 [facility] [id number] BY: CLCIN [facility] [place] Vzusqvdm05394 [address] [facility] [address] [id number] Basophils/100 WBC (Bld) 3 % Normal C omprehensive Internal Medicine Work Phone: Comment on above: PATIENT NOT FASTINGP ERFORMED BY: CB [facility] Ysvisx8438 [facility] [id number] BY: CLCIN [facility] [place] Vsrdlhga06319 [address] [facility] [address] [id number] Eosinophils (Bld) [#/Vol] 0.4 {x10E3/uL} Normal 0.0-0.4 [facility] Work Phone: Comment on above: PATIENT NOT FASTINGP ERFORMED BY: CB [facility] Jfjjfu94[address] [facility] [id number] BY: CLCIN [facility] [place] Dinruomi95614 [address] [facility] [address] [id number] Eosinophils (Bld) [#/Vol] 0.4 10*3/uL Normal 0.0-0.4 [facility]; [facility] Work Phone: Comment on above: PATIENT NOT FASTINGP ERFORMED BY: CB [facility] Vvqdzu9278 [address]aney RoadDublin [place] [id number] BY: CLCIN [facility] [place] [address] [id number] Eosinophils/100 WBC (Bld) 2 % Normal [facility] Work Phone: Comment on above: PATIENT NOT FASTINGP ERFORMED BY: CB [facility] Tclvtb4003 [address]aney RoadDumatheny medical and educational center [place] [id number] BY: CLCIN [facility] [place] [address] [facility] [address] [id number] Erythrocyte distribution width (RBC) [Ratio] 13.9 % Normal 11.6-15.4 [facility] Work Phone: Comment on above: PATIENT NOT FASTINGP ERFORMED BY: CB [facility] Thvbop5921 Haney RoadVincent [place] [id number] BY: CLCIN [facility] [place] [address]14[address] [facility] [address] 150[place] [id number] Hematocrit (Bld) [Volume fraction] 45.8 % Normal 37.5-51.0 [facility] Work Phone: Comment on above: PATIENT NOT FASTINGP ERFORMED BY: CB [facility] Sxevxc1102 Haney RoadVincent [place] [id number] BY: CLCIN [facility] [place] [address]14[address] [facility] [address] [id number] Hemoglobin (Bld) [Mass/Vol] 15.2 g/dL Normal 13.0-17.7 [facility] Work Phone: Comment on above: PATIENT NOT FASTINGP ERFORMED BY: CB [facility] Atdsav0862 Haney RoadDublin [place] [id number] BY: CLCIN [facility] [place] [address]14[address] [facility] [address] [id number] Immature cells/100 WBC (Bld) Note Normal [facility] Work Phone: Comment on above: PATIENT NOT FASTINGP ERFORMED BY: TONYA LabCoaida TorresNizifs2763 Haney RoadDublin [place] [id number] BY: CLCIN [facility] [place] Mwbpkhdq[address] [id number] Lymphocytes (Bld) [#/Vol] 4.8 {x10E3/uL} Abnormal 0.7-3.1 [facility] Work Phone: Comment on above: PATIENT NOT FASTINGP ERFORMED BY: TONYA LabJuliana DavidsonXbefft2360 Haney RoadDublin [place] [id number] BY: CLCIN [facility] Ytufdrjn03448 [address] [facility] [address] [id number] Lymphocytes (Bld) [#/Vol] 4.8 10*3/uL Abnormal 0.7-3.1 [facility]; [facility] Work Phone: Comment on above: PATIENT NOT FASTINGP ERFORMED BY: TONYA LabJuliana DavidsonGnaxty9301 Haney RoadDuin [place] [id number] BY: CLCIN [facility] Bdwfoyqt32182 [address] [facility] [address] [id number] Lymphocytes/100 WBC (Bld) 22 % Normal [facility] Work Phone: Comment on above: PATIENT NOT FASTINGP ERFORMED BY: TONYA [facility] Auahft5819 [address]aney RoadDuin [place] [id number] BY: CLCIN [facility] Djtqjyyi44583 [address] [facility] [address] [id number] MCH (RBC) [Entitic mass] 29.9 pg Normal 26.6-33.0 [facility] Work Phone: Comment on above: PATIENT NOT FASTINGP ERFORMED BY: TONYA [facility] Qqavig4909 [address] RoadDublin [place] [id number] BY: CLCIN [facility] Gyampvcy50745 [address] [facility] [address] [id number] MCHC (RBC) [Mass/Vol] 33.2 g/dL Normal 31.5-35.7 [facility] prehensive Internal Medicine Work Phone: Comment on above: PATIENT NOT FASTINGP ERFORMED BY: TONYA [facility] Xplnmh3479 [address]aney RoadDublin [place] [id number] BY: CLCIN [facility] [place] [address]14[address] [facility] Chirs 150[place] [id number] MCV (RBC) [Entitic vol] 90 fL Normal 79-97 C [facility]ensive [facility] Work Phone: Comment on above: PATIENT NOT FASTINGP ERFORMED BY: TONYA [facility] Ukabei2360 [address] RoadDublin [place] [id number] BY: CLCIN [facility] [place] [address] [facility] 150[place] [id number] Monocytes (Bld) [#/Vol] 1.1 {x10E3/uL} Abnormal 0.1-0.9 [facility] Internal Medicine Work Phone: Comment on above: PATIENT NOT FASTINGP ERFORMED BY: TONYA [facility] Plnplr5647 [address]aney RoadDublin [place] [id number] BY: CLCIN [facility] [place] [address]14[address] [facility] 150[place] [id number] Monocytes (Bld) [#/Vol] 1.1 10*3/uL Abnormal 0.1-0.9 [facility]; [facility] Work Phone: Comment on above: PATIENT NOT FASTINGP ERFORMED BY: TONYA [facility] Nztefv5887 [address] RoadDublin [place] [id number] BY: CLCIN [facility] [place] [address] [facility] 150[place] [id number] Monocytes/100 WBC (Bld) 5 % Normal C [facility] hospitalensive [facility] Work Phone: Comment on above: PATIENT NOT FASTINGP ERFORMED BY: TONYA [facility] Ydvfzy4719 [address] RoadDublin [place] [id number] BY: CLCIN [facility] Uxtkdgdk[address] [id number] Morphology Miguel (Bld) [Interp] Note: Normal [facility] Work Phone: Comment on above: Manual differential was performed. PATIENT NOT FASTINGP ERFORMED BY: TONYA [facility] Wsyqej4267 [address] RoadDublin [place] [id number] BY: CLCIN [facility] Dtrvrtww[address] [id number] Neutrophils (Bld) [#/Vol] 12.2 {x10E3/uL} Abnormal 1.4-7.0 [facility] Work Phone: Comment on above: PATIENT NOT FASTINGP ERFORMED BY: TONYA [facility] Lnzarz5062 [address] RoadDublin [place] [id number] BY: CLCIN [facility] Dbwaoutb73555 [address] [facility] [address] [id number] Neutrophils (Bld) [#/Vol] 12.2 10*3/uL Abnormal 1.4-7.0 [facility]; [facility] Work Phone: Comment on above: PATIENT NOT FASTINGP ERFORMED BY: TONYA LabCoaida Uumsrz6006 [address] RoadDublin [place] [id number] BY: CLCIN [facility] Wlqxxmfr20784 [address] [facility] [address] [id number] Neutrophils/100 WBC (Bld) 56 % Normal [facility] Work Phone: Comment on above: PATIENT NOT FASTINGP ERFORMED BY: CB [facility] Blpbjo8790 [address] RoadDublin [place] [id number] BY: CLCIN [facility] Qinilmkd02304 [address] [facility] [address] [id number] Platelets (Bld) [#/Vol] 216 {x10E3/uL} Normal 150-450 [facility] Work Phone: Comment on above: PATIENT NOT FASTINGP ERFORMED BY: CB [facility] Mwsuue7335 [address] RoadDublin [place] [id number] BY: CLCIN [facility] Dxdsipar24[address] [facility] Chris [address] [id number] Platelets (Bld) [#/Vol] 216 10*3/uL Normal 150-450 [facility]; [facility] Work Phone: Comment on above: PATIENT NOT FASTINGP ERFORMED BY: TONYA [facility] Xgkfml1246 [address] [facility] Hospitalblin [place] [id number] BY: CLCIN [facility] [place] [id number] [facility] 150[place] [id number] RBC (Bld) [#/Vol] 5.08 {x10E6/uL} Normal 4.14-5.80 [facility] Internal Medicine Work Phone: Comment on above: PATIENT NOT FASTINGP ERFORMED BY: TONYA LabJuliana DavidsonJmkala9326 [address] [facility]in [place] [id number] BY: CLCIN [facility] [place] [id number] [facility] 150[place] [id number] RBC (Bld) [#/Vol] 5.08 10*6/uL Normal 4.14-5.80 [facility] Internal Medicine; [facility] Internal Medicine Work Phone: Comment on above: PATIENT NOT FASTINGP ERFORMED BY: TONYA Davidsonlin6370 [facility]aneyWilliams[facility] Hospitalin [place] [id number] BY: CLCIN [facility] [place] [id number] [facility] 150[place] [id number] WBC (Bld) [#/Vol] 21.8 {x10E3/uL} Abnormal 3.4-10.8 [facility] Internal Medicine Work Phone: Comment on above: PATIENT NOT FASTINGP ERFORMED BY: TONYA [facility] Aadrqx5707 [address] [facility] Hospitalblin [place] [id number] BY: CLCIN LabMnrp [place] [id number] [facility] 150[place] [id number] WBC (Bld) [#/Vol] 21.8 10*3/uL Abnormal 3.4-10.8 Compr ehensive Internal Medicine; [facility] Work Phone: Comment on above: PATIENT NOT FASTINGP ERFORMED BY: TONYA LabJuliana Torres6[address] RoadNovant Health Charlotte Orthopaedic Hospitalin [place] [id number] BY: JAYDE ZambranoLogansport Memorial Hospital10291 [facility] 150[place] [id number] C-REACTIVE PROTEIN (61006)Or dered By: Fish Hatchery Worker on 02-01-2020 CRP [Mass/Vol] mg/L Normal 0-10 Comprehens arianna Internal Medicine Work Phone: Comment on above: PATIENT NOT FASTINGP ERFORMED BY: TONYA [facility] Nhliep3780 [address] RoadGood Hope Hospital [id number] CRP [Mass/Vol] mg/L Normal 0-10 Comprehens arianna Internal Medicine; [facility] Work Phone: Comment on above: PATIENT NOT FASTINGP ERFORMED BY: TONYA [facility] Mgfspa8729 [address] [facility] [id number] CBC W/AUTO DIFF WBC (53695)O rdered By: Fish Hatchery Worker on 02-01-2020 Basophils (Bld) [#/Vol] 0.5 {x10E3/uL} Abnormal 0.0-0.2 [facility] Work Phone: Comment on above: PATIENT NOT FASTINGP ERFORMED BY: TONYA [facility] Ocdkud8717 [address] [facility] [id number] Basophils (Bld) [#/Vol] 0.5 10*3/uL Abnormal 0.0-0.2 [facility]; [facility] Work Phone: Comment on above: PATIENT NOT FASTINGP ERFORMED BY: TONYA [facility] Ytsfuk6073 [address] Roadblin [place] [id number] Basophils/100 WBC (Bld) 2 % Normal C omprehensive Internal Medicine Work Phone: Comment on above: PATIENT NOT FASTINGP ERFORMED BY: TONYA [facility] Ncoqdw6069 H[address] RoadGood Hope Hospital [id number] Eosinophils (Bld) [#/Vol] 0.8 {x10E3/uL} Abnormal 0.0-0.4 [facility] Work Phone: Comment on above: PATIENT NOT FASTINGP ERFORMED BY: CB [facility] Yjhmam3642 [address]aney RoadDublin [place] [id number] Eosinophils (Bld) [#/Vol] 0.8 10*3/uL Abnormal 0.0-0.4 [facility]; [facility] Work Phone: Comment on above: PATIENT NOT FASTINGP ERFORMED BY: CB [facility] Tafpgt5086 Haney RoadDublin [place] [id number] Eosinophils/100 WBC (Bld) 3 % Normal [facility] Work Phone: Comment on above: PATIENT NOT FASTINGP ERFORMED BY: CB [facility] Waqslb5269 [address] RoadDublin [place] [id number] Erythrocyte distribution width (RBC) [Ratio] 13.8 % Normal 11.6-15.4 [facility] Work Phone: Comment on above: PATIENT NOT FASTINGP ERFORMED BY: CB [facility] Uqatla2720 [address] RoadDublin [place] [id number] Hematocrit (Bld) [Volume fraction] 47.0 % Normal 37.5-51.0 [facility] Work Phone: Comment on above: PATIENT NOT FASTINGP ERFORMED BY: CB [facility] Nwjddp5332 [address] RoadDublin [place] [id number] Hemoglobin (Bld) [Mass/Vol] 16.4 g/dL Normal 13.0-17.7 [facility] Work Phone: Comment on above: PATIENT NOT FASTINGP ERFORMED BY: CB [facility] Vhquke8683 [address] RoadDublin [place] [id number] Immature cells/100 WBC (Bld) Note Normal [facility] Work Phone: Comment on above: PATIENT NOT FASTINGP ERFORMED BY: CB [facility] Cfrbxn8245 [address] RoadDublin [place] [id number] Lymphocytes (Bld) [#/Vol] 3.1 {x10E3/uL} Normal 0.7-3.1 [facility] Work Phone: Comment on above: PATIENT NOT FASTINGP ERFORMED BY: CB [facility] Jgytge7439 [address] RoadDublin [place] [id number] Lymphocytes (Bld) [#/Vol] 3.1 10*3/uL Normal 0.7-3.1 [facility]; [facility] Work Phone: Comment on above: PATIENT NOT FASTINGP ERFORMED BY: CB [facility] Npoqot8891 [address] RoadDublin [place] [id number] Lymphocytes/100 WBC (Bld) 12 % Normal [facility] Work Phone: Comment on above: PATIENT NOT FASTINGP ERFORMED BY: CB [facility] Qppffa0504 [address] RoadDublin [place] [id number] MCH (RBC) [Entitic mass] 30.7 pg Normal 26.6-33.0 [facility] Work Phone: Comment on above: PATIENT NOT FASTINGP ERFORMED BY: CB [facility] Kqijyr3626 [address] RoadDublin [place] [id number] MCHC (RBC) [Mass/Vol] 34.9 g/dL Normal 31.5-35.7 [facility] Internal Medicine Work Phone: Comment on above: PATIENT NOT FASTINGP ERFORMED BY: CB [facility] Pfhqbl4273 [address] RoadDublin [place] [id number] MCV (RBC) [Entitic vol] 88 fL Normal 79-97 [facility] Internal Medicine Work Phone: Comment on above: PATIENT NOT FASTINGP ERFORMED BY: CB [facility] Vrpghe4881 [address] RoadDublin [place] [id number] Monocytes (Bld) [#/Vol] 1.5 {x10E3/uL} Abnormal 0.1-0.9 [facility] Work Phone: Comment on above: PATIENT NOT FASTINGP ERFORMED BY: CB [facility] Zpukru9280 [address] RoadDublin [place] [id number] Monocytes (Bld) [#/Vol] 1.5 10*3/uL Abnormal 0.1-0.9 [facility]; [facility] Work Phone: Comment on above: PATIENT NOT FASTINGP ERFORMED BY: CB [facility] Pkdsdm2633 [address] RoadDublin [place] [id number] Monocytes/100 WBC (Bld) 6 % Normal C omprehensive Internal Medicine Work Phone: Comment on above: PATIENT NOT FASTINGP ERFORMED BY: CB [facility] Kmnwcp2072 [address] RoadDublin [place] [id number] Morphology Miguel (Bld) [Interp] Note: Normal [facility] Work Phone: Comment on above: Manual differential was performed. PATIENT NOT FASTINGP ERFORMED BY: CB [facility] Hirvwm3422 [address] RoadDublin [place] [id number] Neutrophils (Bld) [#/Vol] 18.1 {x10E3/uL} Abnormal 1.4-7.0 [facility] Work Phone: Comment on above: PATIENT NOT FASTINGP ERFORMED BY: CB [facility] Ygxacg0846 [address]any[address] RoadDublin [place] [id number] Neutrophils (Bld) [#/Vol] 18.1 10*3/uL Abnormal 1.4-7.0 [facility]; [facility] Work Phone: Comment on above: PATIENT NOT FASTINGP ERFORMED BY: CB [facility] Xtegpb1455 [address] RoadDublin [place] [id number] Neutrophils/100 WBC (Bld) 70 % Normal [facility] Work Phone: Comment on above: PATIENT NOT FASTINGP ERFORMED BY: CB [facility] Yuycav5964 [address] RoadDublin [place] [id number] Platelets (Bld) [#/Vol] 220 {x10E3/uL} Normal 150-450 [facility] Work Phone: Comment on above: PATIENT NOT FASTINGP ERFORMED BY: CB [facility] Kaawmg9881 [address] RoadDublin [place] [id number] Platelets (Bld) [#/Vol] 220 10*3/uL Normal 150-450 [facility] Internal Medicine; [facility] Internal Medicine Work Phone: Comment on above: PATIENT NOT FASTINGP ERFORMED BY: TONYA Torres6370 [address] RoadDublin [place] [id number] RBC (Bld) [#/Vol] 5.35 {x10E6/uL} Normal 4.14-5.80 Co [facility]x bransonensive Internal Medicine Work Phone: Comment on above: PATIENT NOT FASTINGP ERFORMED BY: CB [facility] Uohjxt5585 [address] RoadDublin [place] [id number] RBC (Bld) [#/Vol] 5.35 10*6/uL Normal 4.14-5.80 [facility] Internal Medicine; [facility] Internal Medicine Work Phone: Comment on above: PATIENT NOT FASTINGP ERFORMED BY: TONYA Torres6370 [address] RoadNovant Health Charlotte Orthopaedic Hospitalin [place] [id number] WBC (Bld) [#/Vol] 25.8 {x10E3/uL} Abnormal 3.4-10.8 [facility] Internal Medicine Work Phone: Comment on above: PATIENT NOT FASTINGP ERFORMED BY: TONYA Torres6370 [address] [facility] Hospitalblin [place] [id number] WBC (Bld) [#/Vol] 25.8 10*3/uL Abnormal 3.4-10.8 [facility] Internal Medicine; [facility] Internal Medicine Work Phone: Comment on above: PATIENT NOT FASTINGP ERFORMED BY: CB [facility] Jcdjvy6172 [address] [facility] Hospitalblin [place] [id number] ESR-F (SED RATE ERYTHROCYTE - MALE) (11207)Ordered By: Fish Hatchery Worker on 02-01-2020 ESR (Bld) [Velocity] 19 mm/h Normal 0-30 [facility] Internal Medicine Work Phone: Comment on above: PATIENT NOT FASTINGP ERFORMED BY: CB [facility] Dztzyz8010 [address] RoadDublin [place] [id number] CBC W/AUTO DIFF WBC (54826)O rdered By: Fish Hatchery Worker on 01-28-2020 Basophils (Bld) [#/Vol] 0.8 {x10E3/uL} Abnormal 0.0-0.2 [facility] Work Phone: Comment on above: january; PATIENT NOT FASTINGPERFORMED BY: TONYA [facility] Ozajee9488 [address] [facility]in [place] [id number] Basophils (Bld) [#/Vol] 0.8 10*3/uL Abnormal 0.0-0.2 [facility]; [facility] Work Phone: Comment on above: january; PATIENT NOT FASTINGPERFORMED BY: CB [facility] Sgtkgn2088 [address] RoadNovant Health Charlotte Orthopaedic Hospitalin [place] [id number] Basophils/100 WBC (Bld) 5 % Normal C [facility] Internal Medicine Work Phone: Comment on above: january; PATIENT NOT FASTINGPERFORMED BY: CB [facility] Cyndwx6696 [address] RoadGood Hope Hospital [id number] Eosinophils (Bld) [#/Vol] 0.8 {x10E3/uL} Abnormal 0.0-0.4 [facility] Work Phone: Comment on above: january; PATIENT NOT FASTINGPERFORMED BY: CB [facility] Otgsbz4186 [address] [facility]in [place] [id number] Eosinophils (Bld) [#/Vol] 0.8 10*3/uL Abnormal 0.0-0.4 [facility]; [facility] Work Phone: Comment on above: january; PATIENT NOT FASTINGPERFORMED BY: CB [facility] Eymenm7399 [address] [facility]in [place] [id number] Eosinophils/100 WBC (Bld) 5 % Normal [facility] Work Phone: Comment on above: january; PATIENT NOT FASTINGPERFORMED BY: CB [facility] Vjzvhr1619 [address] [facility] [id number] Erythrocyte distribution width (RBC) [Ratio] 13.9 % Normal 11.6-15.4 [facility] Work Phone: Comment on above: january; PATIENT NOT FASTINGPERFORMED BY: CB [facility] Drmvcu1674 [address] RoadNovant Health Charlotte Orthopaedic Hospitalin [place] [id number] Hematocrit (Bld) [Volume fraction] 47.3 % Normal 37.5-51.0 [facility] Work Phone: Comment on above: early january; PATIENT NOT FASTINGPERFORMED BY: CB [facility] Rvjugr4990 [address] RoadNovant Health Charlotte Orthopaedic Hospitalin [place] [id number] Hemoglobin (Bld) [Mass/Vol] 15.6 g/dL Normal 13.0-17.7 [facility] Work Phone: Comment on above: early january; PATIENT NOT FASTINGPERFORMED BY: CB [facility] Pcfhrt8253 [address] RoadNovant Health Charlotte Orthopaedic Hospitalin [place] [id number] Immature cells/100 WBC (Bld) Note Normal [facility] Work Phone: Comment on above: january; PATIENT NOT FASTINGPERFORMED BY: [facility] Bhqhne1935 [address] RoadNovant Health Charlotte Orthopaedic Hospitalin [place] [id number] Lymphocytes (Bld) [#/Vol] 2.3 {x10E3/uL} Normal 0.7-3.1 [facility] Work Phone: Comment on above: early january; PATIENT NOT FASTINGPERFORMED BY: [facility] Isekvj7879 [address] RoadNovant Health Charlotte Orthopaedic Hospitalin [place] [id number] Lymphocytes (Bld) [#/Vol] 2.3 10*3/uL Normal 0.7-3.1 [facility]; [facility] Work Phone: Comment on above: early january; PATIENT NOT FASTINGPERFORMED BY: CB [facility] Lytvip8083 [address] Roadblin [place] [id number] Lymphocytes/100 WBC (Bld) 15 % Normal [facility] Work Phone: Comment on above: early january; PATIENT NOT FASTINGPERFORMED BY: CB [facility] Itjhsr7974 [address] [facility] Hospitalblin [place] [id number] MCH (RBC) [Entitic mass] 30.0 pg Normal 26.6-33.0 [facility] Work Phone: Comment on above: early january; PATIENT NOT FASTINGPERFORMED BY: CB [facility] Hxklnw2004 [address] [facility]in [place] [id number] MCHC (RBC) [Mass/Vol] 33.0 g/dL Normal 31.5-35.7 [facility]ensive [facility] Work Phone: Comment on above: early january; PATIENT NOT FASTINGPERFORMED BY: CB [facility] Lnfxcp4224 [address] [facility]in [place] [id number] MCV (RBC) [Entitic vol] 91 fL Normal 79-97 C [facility]ensive Internal [facility] Work Phone: Comment on above: early january; PATIENT NOT FASTINGPERFORMED BY: CB [facility] Oocbwh3849 [address] [facility]in [place] [id number] Monocytes (Bld) [#/Vol] 1.1 {x10E3/uL} Abnormal 0.1-0.9 [facility] Internal Medicine Work Phone: Comment on above: january; PATIENT NOT FASTINGPERFORMED BY: CB [facility] Clxmgd7800 [address] [facility] [id number] Monocytes (Bld) [#/Vol] 1.1 10*3/uL Abnormal 0.1-0.9 [facility]; [facility] Work Phone: Comment on above: january; PATIENT NOT FASTINGPERFORMED BY: [facility] Dhyjft1963 [address] [facility]in [place] [id number] Monocytes/100 WBC (Bld) 7 % Normal C [facility]ensive Internal Medicine Work Phone: Comment on above: early january; PATIENT NOT FASTINGPERFORMED BY: [facility] Yzalhn0428 [address] [facility]in [place] [id number] Morphology Miguel (Bld) [Interp] Note: Normal [facility] Work Phone: Comment on above: Manual differential was performed. january; PATIENT NOT FASTINGPERFORMED BY: CB [facility] Fruado4001 [address] [facility] [id number] Neutrophils (Bld) [#/Vol] 9.0 {x10E3/uL} Abnormal 1.4-7.0 [facility] Work Phone: Comment on above: early january; PATIENT NOT FASTINGPERFORMED BY: CB [facility] Dekdvi6677 [address] RoadDublin [place] [id number] Neutrophils (Bld) [#/Vol] 9.0 10*3/uL Abnormal 1.4-7.0 [facility]; [facility] Work Phone: Comment on above: early january; PATIENT NOT FASTINGPERFORMED BY: CB [facility] Snecbl3849 [address] RoadDublin [place] [id number] Neutrophils/100 WBC (Bld) 59 % Normal [facility] Work Phone: Comment on above: early january; PATIENT NOT FASTINGPERFORMED BY: CB [facility] Ltzwxo3768 [address] RoadDublin [place] [id number] Platelets (Bld) [#/Vol] 222 {x10E3/uL} Normal 150-450 [facility] Work Phone: Comment on above: early january; PATIENT NOT FASTINGPERFORMED BY: CB [facility] Ayoozr8369 [address] RoadDublin [place] [id number] Platelets (Bld) [#/Vol] 222 10*3/uL Normal 150-450 [facility]; [facility] Work Phone: Comment on above: early january; PATIENT NOT FASTINGPERFORMED BY: CB [facility] Hqlzez4514 [address] RoadDublin [place] [id number] RBC (Bld) [#/Vol] 5.20 {x10E6/uL} Normal 4.14-5.80 [facility] Internal Medicine Work Phone: Comment on above: early january; PATIENT NOT FASTINGPERFORMED BY: CB [facility] Jmrpkn5142 [address] RoadDublin [place] [id number] RBC (Bld) [#/Vol] 5.20 10*6/uL Normal 4.14-5.80 [facility] Internal Medicine; [facility] Work Phone: Comment on above: january; PATIENT NOT FASTINGPERFORMED BY: CB [facility] Soubzz7268 [address] RoadDublin [place] [id number] WBC (Bld) [#/Vol] 15.2 {x10E3/uL} Abnormal 3.4-10.8 [facility] Internal Medicine Work Phone: Comment on above: january; PATIENT NOT FASTINGPERFORMED BY: [facility]6370 [facility] [id number] WBC (Bld) [#/Vol] 15.2 10*3/uL Abnormal 3.4-10.8 [facility] Internal Medicine; [facility] Work Phone: Comment on above: early january; PATIENT NOT FASTINGPERFORMED BY: [place] 1731070 [facility] [id number] CBC W/AUTO DIFF WBC (33020)O rdered By: Fish Hatchery Worker on 12-24-2019 Basophils (Bld) [#/Vol] 0.4 {x10E3/uL} Abnormal 0.0-0.2 [facility] Internal Medicine Work Phone: Comment on above: Test(s) 911923-HAE-G ; 622484-HQQ-M; 713485-LGQ-W; 652050-Jhkwedkcyfalm; 501850-Ciyehnynwzd, Total; 510675-CGJ-V (Total);721619-Qwbqr LDL-P; 107309-JXF Size; 769028-QG-EE Scorewas developed and its performance characteristics determinedby [facility]. It has not been cleared or approved by the Foodand Drug Administration.PATIENT WAS FASTINGPERFORMED BY: [address] [id number] BY: [facility]6370 [facility] [id number] Basophils (Bld) [#/Vol] 0.4 10*3/uL Abnormal 0.0-0.2 [facility]; [facility] Work Phone: Comment on above: Test(s) 744981-YLP-K ; 922201-UAJ-U; 503442-RKW-I; 576500-Otfrrcujzkdtf; 391547-Ifyyhkowtae, Total; 967158-CKB-E (Total);918348-Ebmft LDL-P; 112876-SVO Size; 012574-VN-KZ Scorewas developed and its performance characteristics determinedby [employer]. It has not been cleared or approved by the Foodand Drug Administration.PATIENT WAS FASTINGPERFORMED BY: [address] [id number] BY: You.Do70 BodeTreeCannon [facility] Hospital [id number] Basophils/100 WBC (Bld) 3 % Normal [facility] Internal Medicine Work Phone: Comment on above: Test(s) 059253-EMV-F ; 138866-UYN-A; 129118-CFE-P; 706931-Socwduchmopnu; 523504-Kwordvkodbv, Total; 960620-QEL-L (Total);826122-Hvpmp LDL-P; 971579-UUJ Size; 651064-DW-VN Scorewas developed and its performance characteristics determinedby [employer]. It has not been cleared or approved by the Foodand Drug Administration.PATIENT WAS FASTINGPERFORMED BY: [address] [id number] BY: You.Do70 [facility]odeTreeCannon [facility] Hospital [id number] Eosinophils (Bld) [#/Vol] 0.6 {x10E3/uL} Abnormal 0.0-0.4 [facility] Internal Medicine Work Phone: Comment on above: Test(s) 298133-RWW-I ; 150356-XYQ-U; 710634-DGJ-T; 617919-Klhexfytoscyk; 224400-Xylocjirkdg, Total; 224842-RGI-B (Total);363773-Gbtob LDL-P; 807347-CVS Size; 201474-UL-XZ Scorewas developed and its performance characteristics determinedby [employer]. It has not been cleared or approved by the Foodand Drug Administration.PATIENT WAS FASTINGPERFORMED BY: [address] [id number] BY: You.Do70 [address] Recite MeGood [facility] [id number] Eosinophils (Bld) [#/Vol] 0.6 10*3/uL Abnormal 0.0-0.4 [facility]; [facility] Work Phone: Comment on above: Test(s) 966569-OVG-A ; 035300-VNL-I; 357728-OVJ-L; 565078-Igmqimxujqzan; 044832-Pxaxqgobjpo, Total; 918947-QLV-S (Total);994344-Iuxhy LDL-P; 266628-PCX Size; 725019-OM-XB Scorewas developed and its performance characteristics determinedby [employer]. It has not been cleared or approved by the Foodand Drug Administration.PATIENT WAS FASTINGPERFORMED BY: [email or web address] [place] [address] [id number] BY: You.Do70 [address] [facility] [id number] Eosinophils/100 WBC (Bld) 4 % Normal [facility] Work Phone: Comment on above: Test(s) 808503-VZU-G ; 278714-OHB-P; 534305-CGM-K; 597892-Pwolcpmbrlqwl; 319688-Quydonwvkpc, Total; 607094-GVV-D (Total);812111-Annmq LDL-P; 461889-KUE Size; 056670-LS-GS Scorewas developed and its performance characteristics determinedby [employer]. It has not been cleared or approved by the Foodand Drug Administration.PATIENT WAS FASTINGPERFORMED BY: LogicLadder[address] [id number] BY: [employer]6370 [facility]aneyL[facility] Health System [id number] Erythrocyte distribution width (RBC) [Ratio] 14.1 % Normal 11.6-15.4 [facility] Work Phone: Comment on above: Test(s) 198994-YQO-D ; 402986-URL-E; 572267-CQM-U; 011613-Fsuoarcgnwmtr; 266293-Jkigehnpxdl, Total; 159841-KAJ-B (Total);084692-Rfboo LDL-P; 546423-LMS Size; 176985-CH-KA Scorewas developed and its performance characteristics determinedby [employer]. It has not been cleared or approved by the Foodand Drug Administration.PATIENT WAS FASTINGPERFORMED BY: [address] [id number] BY: [employer] Vqbodk8354 [facility] [id number] Hematocrit (Bld) [Volume fraction] 43.8 % Normal 37.5-51.0 [facility] Work Phone: Comment on above: Test(s) 950355-MFX-U ; 806720-QXP-I; 352338-BZY-E; 882851-Noybooloauell; 124567-Mqyewszpuqn, Total; 518789-TFZ-P (Total);832815-Vdyqf LDL-P; 928382-FKO Size; 277541-RQ-KQ Scorewas developed and its performance characteristics determinedby [employer]. It has not been cleared or approved by the Foodand Drug Administration.PATIENT WAS FASTINGPERFORMED BY: [address] [id number] BY: [employer]6370 [facility] [id number] Hemoglobin (Bld) [Mass/Vol] 15.6 g/dL Normal 13.0-17.7 [facility] Work Phone: Comment on above: Test(s) 353593-HHC-J ; 897917-NVP-K; 590285-QFF-V; 608765-Ysxnbdkbuytfn; 967346-Aoerdsqnbvx, Total; 269774-TNC-T (Total);982596-Xmmrd LDL-P; 539411-JYH Size; 327469-YL-GN Scorewas developed and its performance characteristics determinedby [employer]. It has not been cleared or approved by the Foodand Drug Administration.PATIENT WAS FASTINGPERFORMED BY: [address] [id number] BY: [employer] Jgpazu7655 [facility] [id number] Immature granulocytes (Bld) [#/Vol] 0.6 {x10E3/uL} Abnormal 0.0-0.1 [facility] Work Phone: Comment on above: (An elevated percent age of Immature Granulocytes has not been foundto be clinically significant as a sole clinical predictor of disease.Does NOT include bands or blast cells. associatedphysiological leukocytosis may also show increased immaturegranulocytes without clinical significance.) Test(s) 620730-AJO-G ; 859538-SFM-B; 247304-BYO-B; 334126-Rqygixcwdfdem; 910919-Jwsopzaqlli, Total; 193324-FQA-F (Total);192501-Svnhf LDL-P; 092392-GEG Size; 064606-RI-RS Scorewas developed and its performance characteristics determinedby [employer]. It has not been cleared or approved by the Foodand Drug Administration.PATIENT WAS FASTINGPERFORMED BY: [address] [id number] BY: You.Do70 [facility]odeTreeCannon [facility] Hospital [id number] Immature granulocytes (Bld) [#/Vol] 0.6 10*3/uL Abnormal 0.0-0.1 [facility]; [facility] Work Phone: Comment on above: (An elevated percent age of Immature Granulocytes has not been foundto be clinically significant as a sole clinical predictor of disease.Does NOT include bands or blast cells. associatedphysiological leukocytosis may also show increased immaturegranulocytes without clinical significance.) Test(s) 099911-PAY-A ; 653124-HDK-E; 967804-WRN-M; 722618-Hejzlxjnsxbxm; 484958-Qegqoaolamh, Total; 476887-YHV-V (Total);658005-Ibdrh LDL-P; 776496-CZZ Size; 296456-EU-WF Scorewas developed and its performance characteristics determinedby [employer]. It has not been cleared or approved by the Foodand Drug Administration.PATIENT WAS FASTINGPERFORMED BY: [address] [id number] BY: [employer] Apps6370 [facility] [id number] Immature granulocytes/100 WBC (Bld) 4 % Normal [facility] Work Phone: Comment on above: Test(s) 178140-KJA-I ; 646967-TVE-A; 362672-RRE-X; 421662-Uptgcgpzytjhy; 364376-Atyzwugiqxa, Total; 614352-YHJ-Y (Total);050067-Cqyng LDL-P; 922175-WMZ Size; 916892-DL-IX Scorewas developed and its performance characteristics determinedby [employer]. It has not been cleared or approved by the Foodand Drug Administration.PATIENT WAS FASTINGPERFORMED BY: LogicLadder[address] [id number] BY: You.Do70 [facility] [id number] Lymphocytes (Bld) [#/Vol] 2.5 {x10E3/uL} Normal 0.7-3.1 [facility] Work Phone: Comment on above: Test(s) 469606-ITB-G ; 154395-KYB-X; 496412-NRG-V; 769490-Tfblthozritpn; 677784-Ecsduwhkwuj, Total; 161820-POV-J (Total);445664-Ijuea LDL-P; 231481-NSB Size; 687064-UT-CS Scorewas developed and its performance characteristics determinedby [employer]. It has not been cleared or approved by the Foodand Drug Administration.PATIENT WAS FASTINGPERFORMED BY: [address] [id number] BY: [employer] Wroccb3935 [facility] [id number] Lymphocytes (Bld) [#/Vol] 2.5 10*3/uL Normal 0.7-3.1 [facility]; [facility] Work Phone: Comment on above: Test(s) 406023-MZW-J ; 388731-RCV-W; 303599-NTY-Q; 898938-Usenirldrtgqf; 847306-Ufglgsniuuv, Total; 900988-CFR-Y (Total);256578-Pgsqu LDL-P; 301949-PLF Size; 802721-UY-KK Scorewas developed and its performance characteristics determinedby [employer]. It has not been cleared or approved by the Foodand Drug Administration.PATIENT WAS FASTINGPERFORMED BY: [address] [id number] BY: Klypper70 [facility] [id number] Lymphocytes/100 WBC (Bld) 17 % Normal [facility] Work Phone: Comment on above: Test(s) 827875-EUW-C ; 065250-LAG-T; 278567-HWB-X; 697467-Idwuxuwyqrtfe; 960185-Dfnatmwhukh, Total; 481466-DCD-R (Total);054637-Rmcat LDL-P; 441552-JTX Size; 242553-UV-PN Scorewas developed and its performance characteristics determinedby [employer]. It has not been cleared or approved by the Foodand Drug Administration.PATIENT WAS FASTINGPERFORMED BY: [address] [id number] BY: You.Do70 [facility] [id number] MCH (RBC) [Entitic mass] 31.3 pg Normal 26.6-33.0 [facility] Work Phone: Comment on above: Test(s) 697926-PPO-T ; 546094-TAM-H; 676420-OWN-H; 503253-Ymawcixwzhtpi; 578415-Ovtgzshwnex, Total; 069509-MZR-K (Total);349259-Phswn LDL-P; 374759-DTV Size; 382346-LL-DV Scorewas developed and its performance characteristics determinedby [employer]. It has not been cleared or approved by the Foodand Drug Administration.PATIENT WAS FASTINGPERFORMED BY: [address] [id number] BY: [employer] Medic[employer]in6370 [facility] [id number] MCHC (RBC) [Mass/Vol] 35.6 g/dL Normal 31.5-35.7 [facility] Work Phone: Comment on above: Test(s) 630029-KBC-P ; 050027-BSK-M; 691673-OGD-V; 587625-Vexpwaelhztyb; 568851-Kihqfzxrpzs, Total; 167688-WVB-N (Total);318084-Jeinl LDL-P; 501615-GXZ Size; 869884-GF-PX Scorewas developed and its performance characteristics determinedby [employer]. It has not been cleared or approved by the Foodand Drug Administration.PATIENT WAS FASTINGPERFORMED BY: Labelby.me[address] [place] [address] [id number] BY: You.Do70 [place] [facility] [id number] MCV (RBC) [Entitic vol] 88 fL Normal 79-97 [facility] Internal [facility] Work Phone: Comment on above: Test(s) 910361-HHL-R ; 619890-EGC-C; 737545-JZC-V; 680021-Eioiyqvuaxmxj; 855247-Fzwppjrlwqq, Total; 701577-WQW-W (Total);976508-Nzxnm LDL-P; 883739-YGS Size; 029488-VZ-MS Scorewas developed and its performance characteristics determinedby [employer]. It has not been cleared or approved by the Foodand Drug Administration.PATIENT WAS FASTINGPERFORMED BY: Labelby.me1447 [facility] [id number] BY: [employer]6370 [place] [employer] Networks IncCannon [facility] Hospital [id number] Monocytes (Bld) [#/Vol] 1.4 {x10E3/uL} Abnormal 0.1-0.9 [facility] Internal Medicine Work Phone: Comment on above: Test(s) 458749-AXP-E ; 933858-JXE-X; 851646-GYR-U; 979561-Owowhgodziasn; 739613-Snafqrilcvn, Total; 753959-TEB-A (Total);042589-Ufylk LDL-P; 724906-LEV Size; 912512-TM-WB Scorewas developed and its performance characteristics determinedby [employer]. It has not been cleared or approved by the Foodand Drug Administration.PATIENT WAS FASTINGPERFORMED BY: [address] [id number] BY: [employer] Igwebd6563 [facility] [id number] Monocytes (Bld) [#/Vol] 1.4 10*3/uL Abnormal 0.1-0.9 [facility]; [facility] Internal Medicine Work Phone: Comment on above: Test(s) 448977-CRB-V ; 754333-KJP-C; 572061-RQI-Q; 988460-Fxwhnppzwoijp; 546933-Krombaslmkm, Total; 671755-IHL-S (Total);479829-Idbkf LDL-P; 051879-PZY Size; 698603-HE-SF Scorewas developed and its performance characteristics determinedby [employer]. It has not been cleared or approved by the Foodand Drug Administration.PATIENT WAS FASTINGPERFORMED BY: [address] [id number] BY: You.Do70 [place] [facility] [id number] Monocytes/100 WBC (Bld) 10 % Normal [facility] Work Phone: Comment on above: Test(s) 520916-EFF-F ; 813731-ZJX-G; 128632-CSG-H; 097764-Jyqyjtmspekds; 873951-Gjmjdkaxhfb, Total; 458197-WWP-K (Total);785039-Azztw LDL-P; 101993-NQB Size; 884136-ET-TL Scorewas developed and its performance characteristics determinedby [employer]. It has not been cleared or approved by the Foodand Drug Administration.PATIENT WAS FASTINGPERFORMED BY: [address] [id number] BY: [employer]6370 [facility] [id number] Neutrophils (Bld) [#/Vol] 9.1 {x10E3/uL} Abnormal 1.4-7.0 [facility] Work Phone: Comment on above: Test(s) 632572-YXA-U ; 204959-JEJ-E; 548073-HLF-H; 982210-Vjnlxezvhnbfz; 150249-Nnzoxqizfps, Total; 625257-ERU-V (Total);181396-Zwrwp LDL-P; 253344-NAA Size; 706953-SX-HX Scorewas developed and its performance characteristics determinedby [employer]. It has not been cleared or approved by the Foodand Drug Administration.PATIENT WAS FASTINGPERFORMED BY: Labelby.me[address] [place] [address] [id number] BY: You.Do70 [facility] [id number] Neutrophils (Bld) [#/Vol] 9.1 10*3/uL Abnormal 1.4-7.0 [facility]; [facility] Work Phone: Comment on above: Test(s) 954428-JJB-S ; 136806-DHP-N; 781616-MPG-T; 813741-Pfraftjudwczj; 734339-Rmtkknjtluw, Total; 834592-AHE-V (Total);204326-Hndtf LDL-P; 091640-VZR Size; 848689-QD-TU Scorewas developed and its performance characteristics determinedby [employer]. It has not been cleared or approved by the Foodand Drug Administration.PATIENT WAS FASTINGPERFORMED BY: LogicLadder[address] [id number] BY: [employer]6370 [facility] [id number] Neutrophils/100 WBC (Bld) 62 % Normal [facility] Work Phone: Comment on above: Test(s) 101441-VUA-J ; 988355-KRX-Z; 131143-BGH-C; 049365-Jkdrudcwftonh; 589316-Jiljhpfkpwc, Total; 275454-ZQI-L (Total);031943-Tzszv LDL-P; 342854-NSC Size; 914173-ZU-JH Scorewas developed and its performance characteristics determinedby [employer]. It has not been cleared or approved by the Foodand Drug Administration.PATIENT WAS FASTINGPERFORMED BY: [address] [id number] BY: Smart Imaging Systemsrp Nieqbu2216 [facility] [id number] Platelets (Bld) [#/Vol] 229 {x10E3/uL} Normal 150-450 [facility] Work Phone: Comment on above: Test(s) 874762-YFX-L ; 119151-SRW-S; 493577-KWZ-W; 440629-Xagcsnoddltqg; 308423-Zkkfkepbwqc, Total; 160063-HPR-O (Total);295958-Qphng LDL-P; 289656-TYP Size; 691327-VG-GV Scorewas developed and its performance characteristics determinedby [employer]. It has not been cleared or approved by the Foodand Drug Administration.PATIENT WAS FASTINGPERFORMED BY: [address] [id number] BY: [employer] Apps6370 [facility] [id number] Platelets (Bld) [#/Vol] 229 10*3/uL Normal 150-450 [facility]; [facility] Work Phone: Comment on above: Test(s) 429613-LSW-O ; 229443-AGB-F; 971628-SML-Q; 360090-Edweqpckankqk; 555054-Pndbowmxihc, Total; 618539-QGN-N (Total);840660-Rmjta LDL-P; 732362-GUG Size; 980153-TO-AU Scorewas developed and its performance characteristics determinedby [employer]. It has not been cleared or approved by the Foodand Drug Administration.PATIENT WAS FASTINGPERFORMED BY: [address] [id number] BY: [employer] Rgqiib8560 [facility] [id number] RBC (Bld) [#/Vol] 4.99 {x10E6/uL} Normal 4.14-5.80 [facility] Internal Medicine Work Phone: Comment on above: Test(s) 834381-BFV-T ; 553266-GUW-M; 465429-YMU-L; 563140-Gwactlxoosyrm; 741883-Fwiqlfpibig, Total; 636996-UNE-U (Total);223471-Fltbi LDL-P; 526928-GXQ Size; 118808-XI-MU Scorewas developed and its performance characteristics determinedby [employer]. It has not been cleared or approved by the Foodand Drug Administration.PATIENT WAS FASTINGPERFORMED BY: LogicLadder[address] [id number] BY: You.Do70 [facility] [id number] RBC (Bld) [#/Vol] 4.99 10*6/uL Normal 4.14-5.80 [facility] Internal [facility]; [facility] Internal Medicine Work Phone: Comment on above: Test(s) 498167-CJE-W ; 489947-KSB-Z; 149592-IVQ-M; 114048-Vakmvwnevxlbj; 288764-Itzwnrtpepn, Total; 269597-WWJ-V (Total);198559-Hszbi LDL-P; 137795-NRL Size; 027439-JK-YG Scorewas developed and its performance characteristics determinedby [employer]. It has not been cleared or approved by the Foodand Drug Administration.PATIENT WAS FASTINGPERFORMED BY: [address] [id number] BY: [employer]6370 [facility] [id number] WBC (Bld) [#/Vol] 14.5 {x10E3/uL} Abnormal 3.4-10.8 [facility] Internal Medicine Work Phone: Comment on above: Test(s) 643379-OMY-P ; 469735-PTS-J; 026803-QOJ-M; 980294-Jztnkthyjlqwn; 587318-Hennprlsgid, Total; 191309-ZCG-I (Total);913527-Tgtbg LDL-P; 261785-OUR Size; 932790-UK-HW Scorewas developed and its performance characteristics determinedby [employer]. It has not been cleared or approved by the Foodand Drug Administration.PATIENT WAS FASTINGPERFORMED BY: [address] [id number] BY: [employer] Wenrly2360 [facility] [id number] WBC (Bld) [#/Vol] 14.5 10*3/uL Abnormal 3.4-10.8 [facility] Internal Medicine; [facility] Work Phone: Comment on above: Test(s) 452127-RIR-O ; 082324-EIX-U; 117795-REO-A; 788404-Yeicbwypyaknz; 421037-Zoippyathln, Total; 579094-LYN-V (Total);497843-Xnbrw LDL-P; 195497-QRT Size; 576167-AL-MF Scorewas developed and its performance characteristics determinedby [employer]. It has not been cleared or approved by the Foodand Drug Administration.PATIENT WAS FASTINGPERFORMED BY: [address] [id number] BY: [employer] Anokbh1726 [facility] [id number] METABOLIC PANEL, COMPREHENSI VE (99563)Ordered By: Fish Hatchery Worker on 12-24-2019 Albumin [Mass/Vol] 4.7 g/dL Normal 3.8-4.9 [facility] Internal Medicine Work Phone: Comment on above: Test(s) 274833-LTK-Y ; 207045-JHG-X; 882928-KKK-B; 591452-Vbldvpcvrjnyu; 168700-Iniloxnfkwe, Total; 283272-YUQ-U (Total);722493-Ymieh LDL-P; 949860-VMC Size; 866698-HH-CV Scorewas developed and its performance characteristics determinedby [employer]. It has not been cleared or approved by the Foodand Drug Administration.PATIENT WAS FASTINGPERFORMED BY: Acronis[address] [id number] BY: [employer] Bvhgzi7800 [place] [facility] [id number] Albumin/Globulin [Mass ratio] 1.7 {ratio} Normal 1.2-2.2 [facility] Work Phone: Comment on above: Test(s) 273039-VTU-X ; 705955-TMS-V; 125634-KNO-I; 773615-Prkbhjzxftejw; 727680-Piecjrkxifa, Total; 518203-PWN-P (Total);686406-Gndzz LDL-P; 481721-QRP Size; 580526-XT-YK Scorewas developed and its performance characteristics determinedby [employer]. It has not been cleared or approved by the Foodand Drug Administration.PATIENT WAS FASTINGPERFORMED BY: [address] [id number] BY: [employer] Gttsjq1425 [facility] [id number] ALP [Catalytic activity/Vol] 80 [iU]/L Normal 39117 [facility] Work Phone: Comment on above: Test(s) 503480-IWO-G ; 023129-TDT-R; 009431-SFU-F; 225422-Ibigjmeyuzqvb; 422123-Qekfumlmsys, Total; 947351-TQZ-Z (Total);462373-Nlmlv LDL-P; 049699-IID Size; 640131-RO-JC Scorewas developed and its performance characteristics determinedby [employer]. It has not been cleared or approved by the Foodand Drug Administration.PATIENT WAS FASTINGPERFORMED BY: Acronis[address] [id number] BY: Content CirclesRobert Wood Johnson University Hospital SomersetBoxune1687 [facility] [id number] ALP [Catalytic activity/Vol] 80 U/L Normal 39-117 [facility]; [facility] Work Phone: Comment on above: Test(s) 755287-SQP-C ; 644389-JNV-N; 532667-WVV-C; 037992-Xykfihjszptlw; 497448-Bcijvxxawto, Total; 674030-RKW-S (Total);892278-Fmxaz LDL-P; 164522-MQM Size; 972090-PB-YN Scorewas developed and its performance characteristics determinedby [employer]. It has not been cleared or approved by the Foodand Drug Administration.PATIENT WAS FASTINGPERFORMED BY: [employer] [id number] BY: [employer] SystemsChristopher Ville 7133670 [facility] [id number] ALT [Catalytic activity/Vol] 33 [iU]/L Normal 0-44 [facility] Internal Medicine Work Phone: Comment on above: Test(s) 224756-MAG-A ; 401866-ZZS-E; 370235-QYF-S; 946835-Lbqbdxegiyajd; 571740-Yruwvtivrun, Total; 281333-MEA-I (Total);929138-Rnknm LDL-P; 531221-LOI Size; 699060-NJ-EC Scorewas developed and its performance characteristics determinedby [employer]. It has not been cleared or approved by the Foodand Drug Administration.PATIENT WAS FASTINGPERFORMED BY: [address] [id number] BY: [employer] SystemsRobert Wood Johnson University Hospital SomersetJvhyei7513 [facility] [id number] ALT [Catalytic activity/Vol] 33 U/L Normal 0-44 [facility]; [facility] Work Phone: Comment on above: Test(s) 820927-SVN-Z ; 063668-WDG-A; 329243-FIP-N; 349890-Scokuhnvvbpkw; 870152-Nacqilhttiz, Total; 754363-MGV-W (Total);138680-Nsfcy LDL-P; 512916-QJV Size; 701837-VK-UU Scorewas developed and its performance characteristics determinedby [employer]. It has not been cleared or approved by the Foodand Drug Administration.PATIENT WAS FASTINGPERFORMED BY: [employer] [id number] BY: [employer] Apps6370 [facility]Tree[facility] Hospital [id number] AST [Catalytic activity/Vol] 27 [iU]/L Normal 0-40 [facility] Internal Medicine Work Phone: Comment on above: Test(s) 384832-KBG-S ; 304613-ZFY-Y; 303058-HUC-L; 494547-Sybbyycgbruwd; 069357-Mdtucujelsg, Total; 890436-DPT-G (Total);164665-Mlrxj LDL-P; 631668-ZSK Size; 445744-VW-HC Scorewas developed and its performance characteristics determinedby [employer]. It has not been cleared or approved by the Foodand Drug Administration.PATIENT WAS FASTINGPERFORMED BY: [address] [id number] BY: [employer]6370 [facility]ureUofL [facility] [id number] AST [Catalytic activity/Vol] 27 U/L Normal 0-40 [facility] Internal Medicine; [facility] Internal Medicine Work Phone: Comment on above: Test(s) 405831-OXI-T ; 237438-ERI-F; 749709-XWQ-H; 646193-Txpdydoudccta; 938369-Muukqbjzjec, Total; 048415-XPA-B (Total);679126-Wcqxg LDL-P; 611330-WBD Size; 961650-WB-BJ Scorewas developed and its performance characteristics determinedby [employer]. It has not been cleared or approved by the Foodand Drug Administration.PATIENT WAS FASTINGPERFORMED BY: [address] [id number] BY: [employer] Apps6370 [facility]tex[facility] Hospital [id number] Bilirubin [Mass/Vol] 0.4 mg/dL Normal 0.0-1.2 [facility] Internal Medicine Work Phone: Comment on above: Test(s) 825315-XAM-K ; 496827-TKK-X; 577535-FEV-B; 646301-Goafnybrmptsp; 871809-Dkwszusjhqa, Total; 616301-ZVF-O (Total);840368-Cshfi LDL-P; 987126-JOU Size; 162218-CB-UN Scorewas developed and its performance characteristics determinedby [employer]. It has not been cleared or approved by the Foodand Drug Administration.PATIENT WAS FASTINGPERFORMED BY: [address] [id number] BY: [employer] Unazor2696 [place] Fixstream Networks IncCannon Memorial Hospital [id number] Calcium [Mass/Vol] 9.5 mg/dL Normal 8.7-10.2 [facility] Internal Medicine Work Phone: Comment on above: Test(s) 651422-MYG-M ; 134121-OTG-F; 702271-LLH-Z; 444030-Apfhzcjjpvipl; 496047-Rfploxaemde, Total; 287283-TRR-I (Total);322842-Xqsfz LDL-P; 180597-XKT Size; 710250-IV-MZ Scorewas developed and its performance characteristics determinedby [employer]. It has not been cleared or approved by the Foodand Drug Administration.PATIENT WAS FASTINGPERFORMED BY: [address] [id number] BY: You.Do70 [place] Fixstream Networks IncCannon Memorial Hospital [id number] Chloride [Moles/Vol] 98 mmol/L Normal 96-106 [facility] Internal Medicine Work Phone: Comment on above: Test(s) 823879-NXQ-A ; 485379-DZS-G; 562804-CBH-S; 917559-Isrkfkvdcvnqi; 727860-Paegslaimmt, Total; 205623-ISL-Y (Total);625921-Nhsql LDL-P; 580832-BVC Size; 167053-DS-PV Scorewas developed and its performance characteristics determinedby [employer]. It has not been cleared or approved by the Foodand Drug Administration.PATIENT WAS FASTINGPERFORMED BY: [address] [id number] BY: You.Do70 [facility] [id number] CO2 [Moles/Vol] 24 mmol/L Normal 20-[address] [facility] Internal Medicine Work Phone: Comment on above: Test(s) 958644-BFJ-D ; 398371-VPM-A; 700411-ZBK-A; 802958-Pvuulcdrvxacc; 301472-Czejeuqtmob, Total; 619044-LVH-A (Total);673393-Zbznl LDL-P; 872522-HWO Size; 954709-MJ-HG Scorewas developed and its performance characteristics determinedby [employer]. It has not been cleared or approved by the Foodand Drug Administration.PATIENT WAS FASTINGPERFORMED BY: [employer] [facility] [id number] BY: [employer] Apps6370 [facility] [id number] Creatinine [Mass/Vol] 0.83 mg/dL Normal 0.76-1.27 [facility] Internal Medicine Work Phone: Comment on above: Test(s) 431579-TKI-Q ; 810632-TBK-J; 363929-ESF-Y; 462774-Zlorpqugimxjd; 298776-Xkhoynahptn, Total; 269557-RWJ-F (Total);552135-Cnihs LDL-P; 335528-HBT Size; 504448-QE-TO Scorewas developed and its performance characteristics determinedby [employer]. It has not been cleared or approved by the Foodand Drug Administration.PATIENT WAS FASTINGPERFORMED BY: LogicLadder[address] [id number] BY: [employer] Rcjmyo6625 [facility] [id number] GFR/1.73 sq M predicted among blacks CKD-EPI (S/P/Bld) [Vol rate/Area] 111 mL/min/1.73 Normal [facility] Internal Medicine Work Phone: Comment on above: Test(s) 439589-BEW-P ; 905123-GZC-D; 321146-BJZ-E; 880907-Ftxtnvczctobs; 679327-Jxbiegxrodz, Total; 585821-SGJ-V (Total);854780-Ccoug LDL-P; 703165-DDE Size; 473301-JB-WN Scorewas developed and its performance characteristics determinedby [employer]. It has not been cleared or approved by the Foodand Drug Administration.PATIENT WAS FASTINGPERFORMED BY: [address] [id number] BY: [employer] Baregq8104 [facility] [id number] GFR/1.73 sq M predicted among non-blacks CKD-EPI (S/P/Bld) [Vol rate/Area] 96 mL/min/1.73 Normal [facility] Work Phone: Comment on above: Test(s) 692229-HKC-H ; 224424-ZYH-C; 950771-KLJ-K; 818085-Vrdfqukwufdgi; 926076-Vbqfsbqhgyn, Total; 738955-UEJ-N (Total);007294-Xtqrm LDL-P; 710066-FLO Size; 077302-QT-MX Scorewas developed and its performance characteristics determinedby [employer]. It has not been cleared or approved by the Foodand Drug Administration.PATIENT WAS FASTINGPERFORMED BY: [address] [id number] BY: Smart Imaging SystemsRobert Wood Johnson University Hospital SomersetGnoqod4387 [facility] [id number] Globulin (S) [Mass/Vol] 2.8 g/dL Normal 1.5-4.5 [facility] Internal [facility] Work Phone: Comment on above: Test(s) 893571-IRT-N ; 618044-NCO-T; 565316-DQL-J; 624369-Hvtmhbniwplts; 793967-Wzzuouoruer, Total; 165129-RSJ-R (Total);035086-Bzrfi LDL-P; 246184-EYB Size; 119375-BY-XH Scorewas developed and its performance characteristics determinedby [employer]. It has not been cleared or approved by the Foodand Drug Administration.PATIENT WAS FASTINGPERFORMED BY: [address] [id number] BY: [employer] Apps6370 BodeTreeCannon [facility] Hospital [id number] Glucose [Mass/Vol] 97 mg/dL Normal 65-99 [facility] Internal Medicine Work Phone: Comment on above: Test(s) 218132-TEM-S ; 039866-GUD-G; 362103-AWY-Q; 529932-Cuomrrnufsmju; 466256-Bloaewkwqjg, Total; 491545-ZSE-J (Total);433627-Bjncj LDL-P; 262879-TXS Size; 517016-SD-BM Scorewas developed and its performance characteristics determinedby [employer]. It has not been cleared or approved by the Foodand Drug Administration.PATIENT WAS FASTINGPERFORMED BY: [address] [id number] BY: You.Do70 [facility]TreeCannon [facility] Hospital [id number] Potassium [Moles/Vol] 4.4 mmol/L Normal 3.5-5.2 [facility] Internal Medicine Work Phone: Comment on above: Test(s) 682739-STE-O ; 869033-ECW-W; 275943-JQX-V; 007733-Brxrufdahhszr; 891793-Aotuvvrolws, Total; 345215-QOW-J (Total);124996-Nlbfa LDL-P; 161440-HDE Size; 231364-DA-BP Scorewas developed and its performance characteristics determinedby [employer]. It has not been cleared or approved by the Foodand Drug Administration.PATIENT WAS FASTINGPERFORMED BY: [address] [id number] BY: [employer]6370 [place] [facility] [id number] Protein [Mass/Vol] 7.5 g/dL Normal 6.0-8.5 [facility] Internal Medicine Work Phone: Comment on above: Test(s) 162832-UWD-S ; 839621-OZD-E; 645842-QWP-A; 388104-Ywuzypzipyhhe; 157557-Cgkakitegqa, Total; 099702-RAC-S (Total);344016-Dyivz LDL-P; 944057-UOM Size; 312277-IN-MB Scorewas developed and its performance characteristics determinedby [employer]. It has not been cleared or approved by the Foodand Drug Administration.PATIENT WAS FASTINGPERFORMED BY: [address] [id number] BY: You.Do70 [facility] [id number] Sodium [Moles/Vol] 139 mmol/L Normal 134-144 [facility] Internal Medicine Work Phone: Comment on above: Test(s) 096118-AEW-T ; 935898-XTM-U; 837213-NDI-J; 861084-Tghfnuybobkxv; 282542-Eejkmpyoleq, Total; 371215-BHU-A (Total);624542-Eaizg LDL-P; 251673-MRN Size; 188457-XE-VA Scorewas developed and its performance characteristics determinedby [employer]. It has not been cleared or approved by the Foodand Drug Administration.PATIENT WAS FASTINGPERFORMED BY: [address] [id number] BY: [employer]6370 [facility] [id number] Urea nitrogen [Mass/Vol] 12 mg/dL Normal 6-24 [facility] Internal Medicine Work Phone: Comment on above: Test(s) 905470-PGK-H ; 309254-EVM-S; 706927-GNP-R; 749891-Hbkpqldcbmbdc; 100403-Yzplppjfwpr, Total; 089306-CHM-K (Total);839381-Ikyrl LDL-P; 831277-WHD Size; 237255-QF-NF Scorewas developed and its performance characteristics determinedby [employer]. It has not been cleared or approved by the Foodand Drug Administration.PATIENT WAS FASTINGPERFORMED BY: [address] [id number] BY: You.Do70 [facility] [id number] Urea nitrogen/Creatinine [Mass ratio] 14 mg/mg Normal 9-20 [facility] Work Phone: Comment on above: Test(s) 120525-FSY-H ; 910076-MVW-I; 228672-PKK-V; 296318-Pzvegoeroihbn; 349026-Ehgflnhtflf, Total; 025129-JTY-I (Total);344459-Dnwja LDL-P; 880934-CDG Size; 108167-CJ-EM Scorewas developed and its performance characteristics determinedby [employer]. It has not been cleared or approved by the Foodand Drug Administration.PATIENT WAS FASTINGPERFORMED BY: [address]Ladder[address] [id number] BY: You.Do70 [facility] [id number] MICROALBUMINOrdered By: Syst em Fretted Instrument Inspector on 12-24-2019 Albumin DL <= 20 mg/L (U) [Mass/Vol] 5.3 ug/mL Normal [facility] Work Phone: Comment on above: Test(s) 508750-EQJ-V ; 786824-FUQ-Z; 669533-UJT-H; 405177-Zexyakjpjsgcn; 619141-Mawjixqplgb, Total; 904163-WGL-V (Total);676762-Wjoya LDL-P; 755703-GPF Size; 332270-NB-DU Scorewas developed and its performance characteristics determinedby [employer]. It has not been cleared or approved by the Foodand Drug Administration.PATIENT WAS FASTINGPERFORMED BY: [address] [id number] BY: You.Do70 [place] [facility] [id number] Albumin/Creatinine (U) [Mass ratio] 6 {mg/g_creat} Normal 0-29 [facility] Work Phone: Comment on above: Normal: 0 - 29 Moder ately increased: 30 - 300 Severely increased: >300 Please note reference interval change Test(s) 278937-BBO-I ; 303264-QHC-V; 136325-VYU-N; 270396-Rkvtdejpuajfe; 716654-Memjlhuuhgd, Total; 371232-QXD-Q (Total);224751-Zicry LDL-P; 904816-OUC Size; 542769-DV-JT Scorewas developed and its performance characteristics determinedby [employer]. It has not been cleared or approved by the Foodand Drug Administration.PATIENT WAS FASTINGPERFORMED BY: [address] [id number] BY: [employer] Pijgjr7520 [facility] [id number] Creatinine (U) [Mass/Vol] 87.9 mg/dL Normal [facility] Work Phone: Comment on above: Test(s) 161580-JYN-M ; 265402-FBR-L; 757301-FRW-H; 563484-Ufvnajwvdkfne; 019849-Chlmlbhpdhn, Total; 967223-DWN-M (Total);911586-Fsbzv LDL-P; 861944-ULK Size; 234316-FQ-GL Scorewas developed and its performance characteristics determinedby [employer]. It has not been cleared or approved by the Foodand Drug Administration.PATIENT WAS FASTINGPERFORMED BY: [address] [id number] BY: [employer] Hjrkbf3960 [facility] [id number] NMR Profile (47569)Ordered B y: Fish Hatchery Worker on 12-24-2019 Cholesterol [Mass/Vol] 149 mg/dL Normal 100-199 [facility] Internal Medicine Work Phone: Comment on above: Test(s) 973736-HHN-F ; 060471-QOV-G; 070911-LUK-J; 491014-Ocvgkkdxleebe; 285142-Buzpcqygrtp, Total; 496597-MHS-M (Total);862105-Lkbhx LDL-P; 851028-GXR Size; 686980-WB-JS Scorewas developed and its performance characteristics determinedby [employer]. It has not been cleared or approved by the Foodand Drug Administration.PATIENT WAS FASTINGPERFORMED BY: Smart Imaging SystemsNicole V[place] [address] [facility] [id number] BY: [employer] Mxsgam5027 [facility] [id number] Lipoprotein.alpha [Moles/Vol] 31.2 umol/L Normal [facility] Internal Medicine Work Phone: Comment on above: Test(s) 667911-FYA-U ; 633415-CRS-S; 709344-WPI-A; 086213-Cmodurkgocygu; 406268-Fmyfyguvuqd, Total; 034020-NMX-E (Total);431445-Pzjnq LDL-P; 515839-JEG Size; 551398-VS-RM Scorewas developed and its performance characteristics determinedby [employer]. It has not been cleared or approved by the Foodand Drug Administration.PATIENT WAS FASTINGPERFORMED BY: [employer] [address] [id number] BY: [employer] Response Dxlin6370 [facility] [id number] Lipoprotein.beta.subpar ticle [Entitic length] 19.[address] [facility] Internal Medicine Work Phone: Comment [...] not afterLDL-P is taken into account. Test(s) 084579-SOA-H ; 407162-BQA-F; 624922-BZV-H; 319083-Btdllxkfdkbdg; 490827-Diupugzcaft, Total; 461546-TQG-L (Total);622690-Fjrec LDL-P; 827894-FBI Size; 436431-OJ-WC Scorewas developed and its performance characteristics determinedby [employer]. It has not been cleared or approved by the Foodand Drug Administration.PATIENT WAS FASTINGPERFORMED BY: [address]Ladder[address] [id number] BY: opvizor [facility] [id number] Lipoprotein.beta.subpar ticle [Moles/Vol] 949 nmol/L Normal [facility] Work Phone: Comment on above: Low < 1000 Moderate 1000 - 1299 Borderline-High 1300 - 1599 High 1600 - 2000 Very High > 2000 Test(s) 378579-SDC-W ; 130799-LLJ-R; 518607-EOB-P; 112155-Kcjbxvdwgdmxg; 781688-Ovxuzhlcrtz, Total; 688616-PJT-G (Total);725356-Foemr LDL-P; 323761-BTR Size; 990608-PL-WH Scorewas developed and its performance characteristics determinedby [employer]. It has not been cleared or approved by the Foodand Drug Administration.PATIENT WAS FASTINGPERFORMED BY: [address] [id number] BY: You.Do70 [facility] [id number] Lipoprotein.beta.subpar ticle.small [Moles/Vol] 605 nmol/L Abnormal Comprehe nsive Internal Medicine Work Phone: Comment on above: Test(s) 025038-MGZ-U ; 819954-WVW-D; 130475-KNP-Y; 952323-Uqrgeecvpdotm; 228060-Izvtniwknkk, Total; 791890-DRJ-H (Total);597056-Rojzb LDL-P; 669823-KPD Size; 567479-IF-BC Scorewas developed and its performance characteristics determinedby [employer]. It has not been cleared or approved by the Foodand Drug Administration.PATIENT WAS FASTINGPERFORMED BY: [address]Ladder[address] [id number] BY: You.Do70 [facility] [id number] Triglyceride [Mass/Vol] 279 mg/dL Abnormal 0-149 [facility] Work Phone: Comment on above: Test(s) 474035-IIN-I ; 813398-AGO-K; 902120-OOQ-Z; 189329-Luidoxpjenuoq; 836115-Ygunbtfemab, Total; 770709-PFX-N (Total);367361-Ivtur LDL-P; 651196-ZTC Size; 247848-MM-JL Scorewas developed and its performance characteristics determinedby [employer]. It has not been cleared or approved by the Foodand Drug Administration.PATIENT WAS FASTINGPERFORMED BY: [address]Ladder[address] [id number] BY: [employer]6370 [facility] [id number] NMR Profile (94097) 41 mg/dL Normal [facility] Internal Medicine Work Phone: Comment on above: Test(s) 255074-EQH-Y ; 683675-AXD-N; 903114-IYR-G; 312479-Fitjxxuxsapfn; 068185-Fhecmyhprve, Total; 603086-XTS-V (Total);676508-Apuzm LDL-P; 600598-FMS Size; 436755-ST-FV Scorewas developed and its performance characteristics determinedby [employer]. It has not been cleared or approved by the Foodand Drug Administration.PATIENT WAS FASTINGPERFORMED BY: [address] [id number] BY: You.Do70 [facility] [id number] NMR Profile (03119) 52 mg/dL Normal 0-99 [facility] Work Phone: Comment on above: . Optimal < 100 Abov e optimal 100 - 129 Borderline 130 - 159 High 160 - 189 Very high > 189 .LDL-C is inaccurate if patient is non-fasting. Test(s) 228715-GXE-A ; 672529-WWV-V; 600663-ADH-Z; 712328-Wslabyskennhb; 903032-Cwuqklkurqj, Total; 735419-KWQ-P (Total);180391-Husor LDL-P; 057345-FHJ Size; 065371-NZ-GK Scorewas developed and its performance characteristics determinedby [employer]. It has not been cleared or approved by the Foodand Drug Administration.PATIENT WAS FASTINGPERFORMED BY: LogicLadderton1447 [facility] [id number] BY: [employer]6370 [facility] [id number] NMR Profile (54362) 279 mg/dL Abnormal 0-149 [facility]; [facility] Work Phone: NMR Profile (72353) 149 mg/dL Normal 100-199 [facility]; [facility] Work Phone: TSH (64669)Ordered By: Teodora m Fretted Instrument Inspector on 12-24-2019 TSH Qn 3.460 {uIU/mL} Normal 0.450-4.50 0 [facility] Work Phone: Comment on above: Test(s) 177503-NTH-B ; 561269-WNK-D; 632848-JJK-K; 274717-Gikqyxvifhrwr; 818211-Fxfhoedfnsa, Total; 237315-QCT-Y (Total);694340-Oqrlf LDL-P; 537707-YSS Size; 446431-BA-KV Scorewas developed and its performance characteristics determinedby [employer]. It has not been cleared or approved by the Foodand Drug Administration.PATIENT WAS FASTINGPERFORMED BY: Labelby.[email or web address] [facility] [id number] BY: [employer]6370 [facility] [id number] URINALYSIS, W/ MICRO (32479) Ordered By: Fish Hatchery Worker on 12-24-2019 Appearance (U) Clear Normal Comprehens arianna Internal Medicine Work Phone: Comment on above: Test(s) 565053-KSV-K ; 321626-UOR-X; 146319-GKS-C; 935171-Vkdebhuglvkfb; 254313-Dzknnsevach, Total; 974954-RGB-H (Total);469918-Umdnd LDL-P; 623844-JCC Size; 972831-HS-MP Scorewas developed and its performance characteristics determinedby [employer]. It has not been cleared or approved by the Foodand Drug Administration.PATIENT WAS FASTINGPERFORMED BY: LogicLadder[address] [id number] BY: You.Do70 [place] Fixstream Networks IncCannon [facility] Hospital [id number] Bilirubin Ql (U) Negative Normal Comprehe nsive Internal Medicine Work Phone: Comment on above: Test(s) 871495-ZMR-H ; 714128-WCB-H; 478773-DOS-L; 794837-Skfnyzyeidiek; 289296-Tkygbmxuxhw, Total; 564416-XIW-A (Total);207779-Lpqdf LDL-P; 418958-KSR Size; 372856-LV-EO Scorewas developed and its performance characteristics determinedby [employer]. It has not been cleared or approved by the Foodand Drug Administration.PATIENT WAS FASTINGPERFORMED BY: [address] [id number] BY: [employer]6370 [facility] [id number] Bilirubin Ql (U) Negative Normal Comprehe nsive Internal Medicine; [facility] Work Phone: Comment on above: Test(s) 832128-ICF-O ; 859211-GPD-X; 292485-AUG-Q; 890862-Javqmijhjodwb; 445658-Ndzoaacrryb, Total; 202107-RKP-M (Total);877324-Ctvrq LDL-P; 692135-UET Size; 545378-MW-WZ Scorewas developed and its performance characteristics determinedby [employer]. It has not been cleared or approved by the Foodand Drug Administration.PATIENT WAS FASTINGPERFORMED BY: [address] [id number] BY: Klypper70 [facility] [id number] Color (U) Yellow Normal [facility] Work Phone: Comment on above: Test(s) 503181-UBD-E ; 401827-MOW-B; 817945-NPO-A; 653660-Yzdwjjriigfsb; 719863-Fmjcesyezvd, Total; 995815-ZVZ-T (Total);243495-Cvxbw LDL-P; 400995-HQH Size; 329938-TL-LE Scorewas developed and its performance characteristics determinedby [employer]. It has not been cleared or approved by the Foodand Drug Administration.PATIENT WAS FASTINGPERFORMED BY: [address] [id number] BY: You.Do70 [facility] [id number] Glucose Ql (U) Negative Normal Comprehens arianna Internal Medicine Work Phone: Comment on above: Test(s) 065796-AAQ-H ; 042204-YUT-B; 491604-PIC-L; 267752-Bbztpdrykrpyn; 386688-Fdaaddpbdsw, Total; 498187-HBX-N (Total);379322-Uieuy LDL-P; 014245-WPC Size; 936438-MP-EW Scorewas developed and its performance characteristics determinedby [employer]. It has not been cleared or approved by the Foodand Drug Administration.PATIENT WAS FASTINGPERFORMED BY: [address] [id number] BY: [employer] Qkjwuw0740 [facility] [id number] Glucose Ql (U) Negative Normal Comprehens [facility]anna Internal Medicine; [facility] Work Phone: Comment on above: Test(s) 431720-PNW-F ; 949009-YSC-Q; 106184-OQE-B; 669784-Mryrwgwwdwsnl; 185050-Inznpaohusr, Total; 072574-MDP-X (Total);924852-Wkmbb LDL-P; 149931-OJY Size; 215023-MA-AD Scorewas developed and its performance characteristics determinedby [employer]. It has not been cleared or approved by the Foodand Drug Administration.PATIENT WAS FASTINGPERFORMED BY: [address] [id number] BY: You.Do70 [facility] [id number] Hemoglobin Ql (U) Negative Normal Compreh ensive Internal Medicine Work Phone: Comment on above: Test(s) 473533-XTW-T ; 455851-WKO-N; 399382-OXW-O; 514711-Tmvoeuzjcrixh; 601178-Sahwkheadam, Total; 736757-ZIN-O (Total);497202-Olaba LDL-P; 783834-CJD Size; 426002-LR-DK Scorewas developed and its performance characteristics determinedby [employer]. It has not been cleared or approved by the Foodand Drug Administration.PATIENT WAS FASTINGPERFORMED BY: [address] [id number] BY: [employer] Yhdslj8637 [facility] [id number] Hemoglobin Ql (U) Negative Normal Compreh ensive Internal Medicine; [facility] Work Phone: Comment on above: Test(s) 563648-XYQ-Z ; 380762-JFT-Z; 289035-DWC-N; 103782-Nxbdjxgceyojj; 795360-Uchqvgwkvvr, Total; 198518-CNZ-R (Total);349259-Pacxt LDL-P; 567976-BDI Size; 961882-QF-UM Scorewas developed and its performance characteristics determinedby [employer]. It has not been cleared or approved by the Foodand Drug Administration.PATIENT WAS FASTINGPERFORMED BY: [address] [id number] BY: [employer] Mnjhki7501 [facility] [id number] Ketones Ql (U) Negative Normal Comprehens arianna Internal Medicine Work Phone: Comment on above: Test(s) 526452-YCS-Y ; 275809-YHY-W; 329393-AJP-C; 626763-Mykkpbhhultjx; 843687-Lkswpadbdcs, Total; 031481-IEZ-Q (Total);497051-Nnqsi LDL-P; 115523-BIK Size; 322281-VQ-VG Scorewas developed and its performance characteristics determinedby [employer]. It has not been cleared or approved by the Foodand Drug Administration.PATIENT WAS FASTINGPERFORMED BY: [address] [id number] BY: [employer] Apps6370 [facility] [id number] Ketones Ql (U) Negative Normal Comprehens arianna Internal Medicine; [facility] Work Phone: Comment on above: Test(s) 892103-QVY-Q ; 609463-PXO-Z; 396975-BUR-B; 040027-Lmmesnlnznhxr; 328328-Lwldmtsollt, Total; 352021-SBK-J (Total);289422-Ebekl LDL-P; 960075-XUX Size; 347893-HJ-LR Scorewas developed and its performance characteristics determinedby [employer]. It has not been cleared or approved by the Foodand Drug Administration.PATIENT WAS FASTINGPERFORMED BY: [address] [id number] BY: [employer] Lkzanm5445 [facility] [id number] Leukocyte esterase Test strip Ql (U) Negative Normal [facility] Work Phone: Comment on above: Test(s) 088805-ZAK-J ; 249452-CPX-E; 397010-MAH-T; 173602-Hxhdlqkaxohux; 565335-Euoihnbkizr, Total; 345909-NQQ-I (Total);514943-Mnitl LDL-P; 122015-PFL Size; 080577-FR-AD Scorewas developed and its performance characteristics determinedby [employer]. It has not been cleared or approved by the Foodand Drug Administration.PATIENT WAS FASTINGPERFORMED BY: [address] [id number] BY: [facility]airC[facility] Hospital [id number] Leukocyte esterase Test strip Ql (U) Negative Normal [facility]; [facility] Work Phone: Comment on above: Test(s) 584179-JIN-K ; 042504-VLM-D; 638248-HUM-N; 829868-Lbozphikyrrvy; 644126-Skmhazhnooz, Total; 400282-BSN-E (Total);477764-Kutix LDL-P; 868555-NYY Size; 531267-EI-JU Scorewas developed and its performance characteristics determinedby [employer]. It has not been cleared or approved by the Foodand Drug Administration.PATIENT WAS FASTINGPERFORMED BY: [address] [id number] BY: You.Do70 [facility]TreeC[facility] [id number] Microscopic observation LM Nom (Urine sed) MICRON Normal [facility] Work Phone: Comment on above: Microscopic follows if indicated. Test(s) 771559-EWZ-E ; 140712-GBC-U; 195656-TZH-X; 415642-Hfjryfgdwwcra; 283196-Wrfhfkrmbcw, Total; 204546-QID-W (Total);739767-Jmuiu LDL-P; 786362-PGW Size; 644396-UK-IC Scorewas developed and its performance characteristics determinedby [employer]. It has not been cleared or approved by the Foodand Drug Administration.PATIENT WAS FASTINGPERFORMED BY: [address] [id number] BY: You.Do70 [facility] [id number] Microscopic observation LM Nom (Urine sed) See below: Normal [facility] Work Phone: Comment on above: Microscopic was lynnette cated and was performed. Test(s) 084289-PCC-J ; 320232-IVA-Y; 153445-PHA-Z; 036347-Cujrtscmunxgq; 408869-Jhupdiezuub, Total; 640765-QBM-G (Total);512289-Bcodd LDL-P; 143655-HIX Size; 694597-SG-VU Scorewas developed and its performance characteristics determinedby [employer]. It has not been cleared or approved by the Foodand Drug Administration.PATIENT WAS FASTINGPERFORMED BY: LogicLadder[address] [id number] BY: You.Do70 [facility] [id number] Nitrite Ql (U) Negative Normal Comprehens arianna Internal Medicine Work Phone: Comment on above: Test(s) 157988-RDB-K ; 827631-FGQ-K; 605248-ZNR-K; 955477-Nywjybgkgzesc; 930236-Ddidrqnnvmx, Total; 011173-ARN-Q (Total);014555-Jruii LDL-P; 887473-XWW Size; 344998-SW-IZ Scorewas developed and its performance characteristics determinedby [employer]. It has not been cleared or approved by the Foodand Drug Administration.PATIENT WAS FASTINGPERFORMED BY: LogicLadder[address] [id number] BY: [employer] Tafeau2790 [facility] [id number] Nitrite Ql (U) Negative Normal Comprehens arianna [facility]; [facility] Work Phone: Comment on above: Test(s) 794411-TBL-P ; 741292-KMB-J; 822924-ZGI-T; 898519-Lffxmpsbykyll; 796721-Swanouflahb, Total; 930850-NCP-O (Total);606764-Tabxo LDL-P; 624882-CWU Size; 683226-HE-WA Scorewas developed and its performance characteristics determinedby [employer]. It has not been cleared or approved by the Foodand Drug Administration.PATIENT WAS FASTINGPERFORMED BY: [employer] Systems[address] [id number] BY: Smart Imaging SystemsRobert Wood Johnson University Hospital SomersetMdvzcf5978 [facility] [id number] pH (U) 7.0 [pH] Normal 5.0-7.5 [facility] Work Phone: Comment on above: Test(s) 200519-GJY-S ; 007564-KLN-W; 245290-NCH-T; 108443-Tlmgxlkzvtklo; 614422-Lysauyegygi, Total; 088315-LPW-G (Total);969919-Vmjoy LDL-P; 948489-ZFE Size; 452566-CL-TH Scorewas developed and its performance characteristics determinedby [employer]. It has not been cleared or approved by the Foodand Drug Administration.PATIENT WAS FASTINGPERFORMED BY: [employer] [address] [id number] BY: Smart Imaging SystemsUNM Children's Psychiatric CenterBenvyc0693 [facility] [id number] Protein Ql (U) Negative Normal Comprehens arianna Internal Medicine Work Phone: Comment on above: Test(s) 340189-MWI-M ; 973684-QFS-K; 919504-AXW-A; 746405-Ayrikahopwhfw; 663316-Qftukexfxpz, Total; 999624-AGX-C (Total);955165-Ygmrh LDL-P; 791405-TYO Size; 771980-IJ-WP Scorewas developed and its performance characteristics determinedby [employer]. It has not been cleared or approved by the Foodand Drug Administration.PATIENT WAS FASTINGPERFORMED BY: [employer] Systems[address] [id number] BY: [employer] SystemsRobert Wood Johnson University Hospital SomersetCtpmca2335 [facility] [id number] Protein Ql (U) Negative Normal Comprehens arianna [facility]; [facility] Work Phone: Comment on above: Test(s) 030747-VBT-X ; 053697-NLU-W; 811021-MIB-B; 400939-Rhymqglqcovfa; 822186-Bmnesxpfuph, Total; 170746-CYI-L (Total);047529-Yhsqe LDL-P; 602852-RCB Size; 738740-QR-IT Scorewas developed and its performance characteristics determinedby [employer]. It has not been cleared or approved by the Foodand Drug Administration.PATIENT WAS FASTINGPERFORMED BY: [address] [id number] BY: You.Do70 [facility] [id number] Specific gravity (U) [Rel density] 1.016 1 Normal 1.005-1.03 0 [facility] Work Phone: Comment on above: Test(s) 439263-QSU-E ; 429289-NBF-C; 010024-MCB-X; 567788-Umesxtetzgvoc; 993223-Hoczbakmfpf, Total; 704457-NXW-V (Total);052133-Jaydp LDL-P; 765909-IHI Size; 307962-KL-EZ Scorewas developed and its performance characteristics determinedby [employer]. It has not been cleared or approved by the Foodand Drug Administration.PATIENT WAS FASTINGPERFORMED BY: [address] [id number] BY: [employer] Kkygln8309 [facility] [id number] Urobilinogen (U) [Mass/Vol] 0.2 mg/dL Normal 0.2-1.0 [facility]; [facility] Work Phone: Comment on above: Test(s) 103610-WLZ-Y ; 797408-SYT-B; 888099-XWJ-I; 352144-Libdnmzyhmfmn; 706582-Jzyiybialyd, Total; 333003-AWN-Q (Total);393506-Rqhkf LDL-P; 874646-IKK Size; 578683-HF-YR Scorewas developed and its performance characteristics determinedby [employer]. It has not been cleared or approved by the Foodand Drug Administration.PATIENT WAS FASTINGPERFORMED BY: Smart Imaging SystemsNicole V[place] [address]67 [facility] [id number] BY: Smart Imaging SystemsRobert Wood Johnson University Hospital SomersetDxmotp1618 [facility] [id number] Urobilinogen Test strip (U) [Mass/Vol] 0.2 mg/dL Normal 0.2-1.0 [facility] Work Phone: Comment on above: Test(s) 101232-KKM-Z ; 278196-OPJ-A; 343334-XNN-Z; 232154-Fhtwzamyizetp; 798980-Poeqtspasgl, Total; 918190-SSA-X (Total);453476-Tktcp LDL-P; 682285-YQH Size; 712095-VQ-FF Scorewas developed and its performance characteristics determinedby [employer]. It has not been cleared or approved by the Foodand Drug Administration.PATIENT WAS FASTINGPERFORMED BY: [employer] Systems[address] [id number] BY: Smart Imaging SystemsRobert Wood Johnson University Hospital SomersetQfoiel3450 [facility] [id number] XR TOE 3V AP/LAT/OBL RTon XR TOE [...] medial tuft of the first distal phalanx. Travel Money Advisor: PSCB Transcribe Date/Time: Dec 22 2019 9:17P Dictated by : BROOK THAKKAR MD This examination was interpreted and the report reviewed and electronically signed by: BROOK THAKKAR MD on Dec 22 2019 9:19PM EST Normal [facility] CBC with auto diff (08729)Or dered By: Fish Hatchery Worker on 04-13-2019 Basophils (Bld) [#/Vol] 0.1 {x10E3/uL} Normal 0.0-0.2 [facility] Work Phone: Comment on above: Test(s) 096231-KBI-J ; 872605-CMD-H; 612190-WVE-H; 981187-Bxynorjiizzot; 616405-Rwowpzjlzcs, Total; 101331-MRF-G (Total);608105-Trgod LDL-P; 759598-FVS Size; 323892-AB-LP Scorewas developed and its performance characteristics determinedby [employer]. It has not been cleared or approved by the Foodand Drug Administration.PATIENT WAS FASTINGPERFORMED BY: LogicLadderton[address] [place] [address] [id number] BY: [facility] [id number] Basophils (Bld) [#/Vol] 0.1 10*3/uL Normal 0.0-0.2 [facility]; [facility] Work Phone: Comment on above: Test(s) 662163-NMD-M ; 951139-HEH-G; 042151-ERU-R; 701782-Wynakkmktmqtv; 770299-Vcprccwsqqm, Total; 588441-GEK-Z (Total);277270-Bfssh LDL-P; 910748-TZF Size; 000114-QB-AV Scorewas developed and its performance characteristics determinedby [employer]. It has not been cleared or approved by the Foodand Drug Administration.PATIENT WAS FASTINGPERFORMED BY: LogicLadderton1447 [facility] [id number] BY: You.Do70 [facility]odeTreeCannon [facility] Hospital [id number] Basophils/100 WBC (Bld) 1 % Normal C omprehensive [facility] Medicine Work Phone: Comment on above: Test(s) 644757-ZEV-A ; 878463-GFP-B; 136902-WUU-J; 864905-Tdpbdenouulje; 101320-Vpdztkdxaru, Total; 814073-UJN-B (Total);383648-Wjzpv LDL-P; 971517-PHG Size; 605558-OA-QY Scorewas developed and its performance characteristics determinedby [employer]. It has not been cleared or approved by the Foodand Drug Administration.PATIENT WAS FASTINGPERFORMED BY: [address] [id number] BY: [address] [id number] Eosinophils (Bld) [#/Vol] 0.4 {x10E3/uL} Normal 0.0-0.4 [facility] Work Phone: Comment on above: Test(s) 468538-EIX-C ; 703891-RSE-R; 031195-KXW-T; 846712-Jquezldpgbkvl; 265323-Xufvlhjlyhm, Total; 291358-OMV-V (Total);273792-Bencg LDL-P; 344523-ELE Size; 726872-LA-FJ Scorewas developed and its performance characteristics determinedby [employer]. It has not been cleared or approved by the Foodand Drug Administration.PATIENT WAS FASTINGPERFORMED BY: NanoNord[address] [id number] BY: Smart Imaging SystemsRobert Wood Johnson University Hospital SomersetJwzpkq2292 [facility] [id number] Eosinophils (Bld) [#/Vol] 0.4 10*3/uL Normal 0.0-0.4 [facility]; [facility] Work Phone: Comment on above: Test(s) 791220-XAD-T ; 293524-MRI-A; 618807-EGN-M; 740769-Eofnuekaycvoc; 785589-Zpkamuoaoue, Total; 548363-XHF-V (Total);940442-Gowrc LDL-P; 321436-MBJ Size; 696518-FR-UI Scorewas developed and its performance characteristics determinedby [employer]. It has not been cleared or approved by the Foodand Drug Administration.PATIENT WAS FASTINGPERFORMED BY: [address] [id number] BY: You.Do70 [facility]TreeC[facility] [id number] Eosinophils/100 WBC (Bld) 5 % Normal [facility] Work Phone: Comment on above: Test(s) 205864-ABG-W ; 661086-IJV-G; 891074-HFT-L; 842834-Jvbstddzaqibm; 810619-Gfvhcxgfdna, Total; 882551-FKV-U (Total);652524-Uspqt LDL-P; 822268-HFL Size; 960907-WF-ID Scorewas developed and its performance characteristics determinedby [employer]. It has not been cleared or approved by the Foodand Drug Administration.PATIENT WAS FASTINGPERFORMED BY: [address] [id number] BY: You.Do70 [facility]TreeC[facility] [id number] Erythrocyte distribution width (RBC) [Ratio] 14.8 % Normal 12.3-15.4 [facility] Work Phone: Comment on above: Test(s) 268574-IHG-T ; 084077-RMS-H; 937945-VYU-C; 827140-Qvjimlwsxvlba; 320167-Hlttwuskago, Total; 478244-OQS-B (Total);023169-Dqalz LDL-P; 611695-YIP Size; 899681-OB-NB Scorewas developed and its performance characteristics determinedby [employer]. It has not been cleared or approved by the Foodand Drug Administration.PATIENT WAS FASTINGPERFORMED BY: [address] [id number] BY: For[employer] Medicallin6370 [address] [facility] [id number] Hematocrit (Bld) [Volume fraction] 44.9 % Normal 37.5-51.0 [facility] Work Phone: Comment on above: Test(s) 731714-PUC-N ; 478585-CHM-N; 873632-JNP-F; 252920-Uaiuizwhvopbm; 430331-Iqjcmskgkje, Total; 468918-HRA-K (Total);959411-Vrlhl LDL-P; 976940-JGV Size; 391905-KU-QM Scorewas developed and its performance characteristics determinedby [employer]. It has not been cleared or approved by the Foodand Drug Administration.PATIENT WAS FASTINGPERFORMED BY: [address] [id number] BY: [employer] Bqdtrk5262 [facility] [id number] Hemoglobin (Bld) [Mass/Vol] 15.7 g/dL Normal 13.0-17.7 [facility] Work Phone: Comment on above: Test(s) 824603-ICP-K ; 943811-IVO-S; 713085-PCR-F; 413367-Bqerpebpezudd; 364888-Kcxaioygrij, Total; 547797-HNI-I (Total);558438-Kjsrf LDL-P; 084209-HVJ Size; 499787-FA-YB Scorewas developed and its performance characteristics determinedby [employer]. It has not been cleared or approved by the Foodand Drug Administration.PATIENT WAS FASTINGPERFORMED BY: [address] [id number] BY: [employer] Lbhdoz8283 [facility] [id number] Immature granulocytes (Bld) [#/Vol] 0.0 {x10E3/uL} Normal 0.0-0.1 [facility] Work Phone: Comment on above: Test(s) 764524-PDZ-O ; 197140-TYA-H; 974753-MOU-A; 217445-Fkxigezqkfuqe; 295361-Husrhcohsia, Total; 312662-CNK-T (Total);191999-Jaseg LDL-P; 515723-PQW Size; 062136-MU-MS Scorewas developed and its performance characteristics determinedby [employer]. It has not been cleared or approved by the Foodand Drug Administration.PATIENT WAS FASTINGPERFORMED BY: BN LabCo[address] [id number] BY: Smart Imaging SystemsRobert Wood Johnson University Hospital SomersetQqmhwc7730 [facility] [id number] Immature granulocytes (Bld) [#/Vol] 0.0 10*3/uL Normal 0.0-0.1 [facility]; [facility] Work Phone: Comment on above: Test(s) 101967-MWO-L ; 509551-SWX-F; 304074-VTQ-G; 881825-Eyyjnhorwrrll; 063435-Rdenbcnihei, Total; 464501-MZC-Y (Total);434677-Coujz LDL-P; 932551-TQD Size; 335481-EF-CE Scorewas developed and its performance characteristics determinedby [employer]. It has not been cleared or approved by the Foodand Drug Administration.PATIENT WAS FASTINGPERFORMED BY: [address] [id number] BY: [employer]6370 [facility] [id number] Immature granulocytes/100 WBC (Bld) 0 % Normal [facility] Work Phone: Comment on above: Test(s) 831568-QNP-K ; 294201-EYB-B; 445319-KTY-O; 822289-Bwomzenjljlwj; 987762-Hiqutalfhqq, Total; 704031-OBH-A (Total);223984-Vhpfq LDL-P; 911356-QJK Size; 326468-DR-XL Scorewas developed and its performance characteristics determinedby [employer]. It has not been cleared or approved by the Foodand Drug Administration.PATIENT WAS FASTINGPERFORMED BY: Acronis[address] [id number] BY: Content CirclesRobert Wood Johnson University Hospital SomersetImyelc2370 [facility] [id number] Lymphocytes (Bld) [#/Vol] 2.0 {x10E3/uL} Normal 0.7-3.1 [facility] Work Phone: Comment on above: Test(s) 343628-LHS-Z ; 578820-TRB-X; 142047-ZEL-Z; 688041-Jglhqsgdqfmax; 381958-Nazsqtzkqib, Total; 975816-TTC-Z (Total);686222-Fnduq LDL-P; 579127-RXG Size; 752884-VJ-QG Scorewas developed and its performance characteristics determinedby [employer]. It has not been cleared or approved by the Foodand Drug Administration.PATIENT WAS FASTINGPERFORMED BY: [address] [id number] BY: [employer] Ndmytw4409 [facility] [id number] Lymphocytes (Bld) [#/Vol] 2.0 10*3/uL Normal 0.7-3.1 [facility]; [facility] Work Phone: Comment on above: Test(s) 045549-FZJ-R ; 473967-SUQ-K; 802831-ARQ-M; 912451-Igezcoehtrjiu; 414409-Soeilwjmxlp, Total; 242288-SIV-N (Total);322845-Nnvby LDL-P; 959675-SLR Size; 035119-RE-NP Scorewas developed and its performance characteristics determinedby [employer]. It has not been cleared or approved by the Foodand Drug Administration.PATIENT WAS FASTINGPERFORMED BY: [address] [id number] BY: [employer]6370 [facility] [id number] Lymphocytes/100 WBC (Bld) 28 % Normal [facility] Work Phone: Comment on above: Test(s) 450246-FOS-D ; 791034-DWG-U; 682132-USZ-P; 509246-Zrlcukaeznxqj; 905128-Grkguypchdo, Total; 350622-UGP-G (Total);296061-Kqpfl LDL-P; 049487-ACM Size; 388832-UH-OR Scorewas developed and its performance characteristics determinedby [employer]. It has not been cleared or approved by the Foodand Drug Administration.PATIENT WAS FASTINGPERFORMED BY: [address] [facility] [id number] BY: [employer] Jidrpo5124 [facility] [id number] MCH (RBC) [Entitic mass] 28.4 pg Normal 26.6-33.0 [facility] Internal Medicine Work Phone: Comment on above: Test(s) 290457-KBN-R ; 037733-PBL-N; 435093-LOB-P; 827856-Avlftavddpygw; 906196-Yzsnteiguiv, Total; 178406-XBU-O (Total);443301-Laqco LDL-P; 870744-JUO Size; 363519-XF-IH Scorewas developed and its performance characteristics determinedby [employer]. It has not been cleared or approved by the Foodand Drug Administration.PATIENT WAS FASTINGPERFORMED BY: [address] [id number] BY: You.Do70 [facility] [id number] MCHC (RBC) [Mass/Vol] 35.0 g/dL Normal 31.5-35.7 [facility] Internal Medicine Work Phone: Comment on above: Test(s) 832394-DQT-O ; 255397-YBI-V; 755009-LWD-U; 300275-Hxzocdsrgwqji; 419071-Mwuzlghvwkk, Total; 426880-DRP-P (Total);904721-Ttikj LDL-P; 312933-UQH Size; 506852-HO-VC Scorewas developed and its performance characteristics determinedby [employer]. It has not been cleared or approved by the Foodand Drug Administration.PATIENT WAS FASTINGPERFORMED BY: [address] [id number] BY: [employer] Medicallin6370 [facility] [id number] MCV (RBC) [Entitic vol] 81 fL Normal 79-97 [facility] Internal Medicine Work Phone: Comment on above: Test(s) 269917-ROB-T ; 132560-UXH-M; 071172-NTC-B; 928735-Qmygqoizdclen; 416249-Jdpgzdyqqbk, Total; 867101-WER-G (Total);630307-Okdnr LDL-P; 480951-FSP Size; 815068-MV-XS Scorewas developed and its performance characteristics determinedby [employer]. It has not been cleared or approved by the Foodand Drug Administration.PATIENT WAS FASTINGPERFORMED BY: [employer] Systems[address] [id number] BY: Smart Imaging SystemsChristopher Ville 7133670 [facility] [id number] Monocytes (Bld) [#/Vol] 0.6 {x10E3/uL} Normal 0.1-0.9 [facility] Work Phone: Comment on above: Test(s) 439885-SSN-K ; 711617-HCU-Q; 675555-DXB-U; 688540-Oisusmqmxqvnh; 675609-Xdvvdtooxcw, Total; 737920-SLM-N (Total);428303-Tsjdu LDL-P; 223807-AAI Size; 137185-JU-LA Scorewas developed and its performance characteristics determinedby [employer]. It has not been cleared or approved by the Foodand Drug Administration.PATIENT WAS FASTINGPERFORMED BY: [employer] [id number] BY: Smart Imaging SystemsRobert Wood Johnson University Hospital SomersetXyyptm8970 [facility] [id number] Monocytes (Bld) [#/Vol] 0.6 10*3/uL Normal 0.1-0.9 [facility]; [facility] Work Phone: Comment on above: Test(s) 858842-YIO-O ; 728270-UDY-B; 948179-MVT-M; 997467-Decsavtcghsls; 734960-Ywgmotfedfu, Total; 290249-FRQ-U (Total);385573-Yjxzf LDL-P; 995175-QRV Size; 898585-NR-LF Scorewas developed and its performance characteristics determinedby [employer]. It has not been cleared or approved by the Foodand Drug Administration.PATIENT WAS FASTINGPERFORMED BY: Acronis[address] [id number] BY: [employer] Wpuxwi9036 [place] [facility]Good [facility] [id number] Monocytes/100 WBC (Bld) 8 % Normal [facility]gre[facility] hospitalensive [facility] Work Phone: Comment on above: Test(s) 641174-ISE-P ; 478260-PFT-J; 324270-AOO-A; 010174-Bpxhvblbgwduy; 029878-Ptwuquibwdq, Total; 438884-HIW-K (Total);384894-Elnlc LDL-P; 831634-FRK Size; 726151-SI-UU Scorewas developed and its performance characteristics determinedby [employer]. It has not been cleared or approved by the Foodand Drug Administration.PATIENT WAS FASTINGPERFORMED BY: [address] [id number] BY: You.Do70 [facility] [id number] Neutrophils (Bld) [#/Vol] 4.1 {x10E3/uL} Normal 1.4-7.0 [facility] Work Phone: Comment on above: Test(s) 174944-MBU-L ; 608973-GJA-Z; 121682-DWK-M; 605827-Rdxqbcvxhlwak; 662013-Vkbxigjiqwj, Total; 903240-KKX-U (Total);382113-Vmxqr LDL-P; 401059-DHI Size; 138665-FH-NQ Scorewas developed and its performance characteristics determinedby [employer]. It has not been cleared or approved by the Foodand Drug Administration.PATIENT WAS FASTINGPERFORMED BY: [address] [id number] BY: [employer] Dtvmjn2352 [facility] [id number] Neutrophils (Bld) [#/Vol] 4.1 10*3/uL Normal 1.4-7.0 [facility]; [facility] Work Phone: Comment on above: Test(s) 911930-ATO-R ; 138509-SYD-E; 179662-CMY-S; 124717-Hckiazvijczcw; 635725-Uthhyrrenvh, Total; 917012-QGZ-Q (Total);848481-Trbjy LDL-P; 575398-MXR Size; 203399-VQ-WC Scorewas developed and its performance characteristics determinedby [employer]. It has not been cleared or approved by the Foodand Drug Administration.PATIENT WAS FASTINGPERFORMED BY: [address] [id number] BY: You.Do70 [facility] [id number] Neutrophils/100 WBC (Bld) 58 % Normal [facility] Work Phone: Comment on above: Test(s) 512759-VPM-O ; 047212-DIG-N; 432483-GRK-C; 697179-Ghxvsnsxilokg; 937990-Zfvaztpsouv, Total; 412257-TGN-D (Total);154968-Bridb LDL-P; 711144-ANJ Size; 750732-EL-WJ Scorewas developed and its performance characteristics determinedby [employer]. It has not been cleared or approved by the Foodand Drug Administration.PATIENT WAS FASTINGPERFORMED BY: [address] [id number] BY: [employer]6370 [facility] [id number] Platelets (Bld) [#/Vol] 263 {x10E3/uL} Normal 150-450 [facility] Work Phone: Comment on above: Test(s) 711461-LGT-B ; 224773-GVI-P; 476245-WYT-N; 744305-Drzrjfvhtowbd; 758744-Qpadusdqzkk, Total; 787623-EYN-W (Total);170137-Tlxej LDL-P; 841672-WHU Size; 359527-UH-KI Scorewas developed and its performance characteristics determinedby [employer]. It has not been cleared or approved by the Foodand Drug Administration.PATIENT WAS FASTINGPERFORMED BY: BN LabCo[address] [id number] BY: [employer] Cdulum6937 [facility] [id number] Platelets (Bld) [#/Vol] 263 10*3/uL Normal 150-450 [facility]; [facility] Work Phone: Comment on above: Test(s) 929929-CQP-O ; 538913-KXA-B; 498848-YIQ-Y; 419961-Sivwsrzddkgsx; 437061-Uldslvjiqkw, Total; 804932-HDV-V (Total);501810-Yqbji LDL-P; 907623-BHZ Size; 139084-NY-SV Scorewas developed and its performance characteristics determinedby [employer]. It has not been cleared or approved by the Foodand Drug Administration.PATIENT WAS FASTINGPERFORMED BY: Fangcang[address] [id number] BY: [employer]6370 [facility] [id number] RBC (Bld) [#/Vol] 5.52 {x10E6/uL} Normal 4.14-5.80 [facility] Internal [facility] Work Phone: Comment on above: Test(s) 051207-LYO-T ; 128723-NQU-F; 081386-GNR-Y; 236508-Mxqjxdxttpjpz; 501435-Oyespohjrqd, Total; 849068-URP-H (Total);094977-Aritk LDL-P; 700162-NKJ Size; 197461-KC-AB Scorewas developed and its performance characteristics determinedby [employer]. It has not been cleared or approved by the Foodand Drug Administration.PATIENT WAS FASTINGPERFORMED BY: [employer] [address] [id number] BY: [employer] Mydujs1767 [facility] [id number] RBC (Bld) [#/Vol] 5.52 10*6/uL Normal 4.14-5.80 [facility] Internal Medicine; [facility] Internal Medicine Work Phone: Comment on above: Test(s) 805885-DNC-R ; 141237-RJR-X; 817956-GTL-W; 841724-Fbgtrktiikhos; 793132-Maqrhyvqcnv, Total; 202000-UGA-Q (Total);184153-Nrdvi LDL-P; 777787-YDG Size; 966370-RB-NN Scorewas developed and its performance characteristics determinedby [employer]. It has not been cleared or approved by the Foodand Drug Administration.PATIENT WAS FASTINGPERFORMED BY: [address] [id number] BY: [employer] Ubfvgy6980 [facility] [id number] WBC (Bld) [#/Vol] 7.1 {x10E3/uL} Normal 3.4-10.8 [facility] Work Phone: Comment on above: Test(s) 085408-SWE-A ; 264279-OVR-E; 116626-HXL-M; 514852-Hdnsizmsldyif; 120021-Qimkjpswwna, Total; 314176-HAF-F (Total);325349-Qyzrk LDL-P; 239843-NPW Size; 072165-CP-RJ Scorewas developed and its performance characteristics determinedby [employer]. It has not been cleared or approved by the Foodand Drug Administration.PATIENT WAS FASTINGPERFORMED BY: [address] [id number] BY: [employer]6370 [facility] [id number] WBC (Bld) [#/Vol] 7.1 10*3/uL Normal 3.4-10.8 [facility] Internal Medicine; [facility] Work Phone: Comment on above: Test(s) 136329-LKX-X ; 194565-QVC-W; 168747-UUT-R; 408252-Mzkuamgxkarei; 288461-Rscylexphrt, Total; 779730-VCT-X (Total);838628-Nentp LDL-P; 639848-VLC Size; 907947-RD-QB Scorewas developed and its performance characteristics determinedby [employer]. It has not been cleared or approved by the Foodand Drug Administration.PATIENT WAS FASTINGPERFORMED BY: [address] [id number] BY: [employer] Jyiela1213 [facility] [id number] METABOLIC PANEL, COMPREHENSI VE (59550)Ordered By: Fish Hatchery Worker on 04-13-2019 Albumin [Mass/Vol] 4.4 g/dL Normal 3.5-5.5 [facility] Internal Medicine Work Phone: Comment on above: Test(s) 219437-QZC-H ; 920894-KWU-L; 757031-JCX-A; 022121-Topgmtqiqvfrx; 172194-Cgmlxkqooxi, Total; 348131-DFX-C (Total);032653-Wznnc LDL-P; 199199-WNI Size; 607677-NY-KL Scorewas developed and its performance characteristics determinedby [employer]. It has not been cleared or approved by the Foodand Drug Administration.PATIENT WAS FASTINGPERFORMED BY: [address] [id number] BY: You.Do70 [facility] [id number] Albumin/Globulin [Mass ratio] 1.6 {ratio} Normal 1.2-2.2 [facility] Internal Medicine Work Phone: Comment on above: Test(s) 592551-BWS-L ; 976088-TVY-X; 613738-KOD-L; 468091-Mesxomkkxyxvt; 735054-Nybicpkabfk, Total; 365494-FNZ-O (Total);209979-Nvtcx LDL-P; 372441-XEO Size; 946660-XN-GG Scorewas developed and its performance characteristics determinedby [employer]. It has not been cleared or approved by the Foodand Drug Administration.PATIENT WAS FASTINGPERFORMED BY: [address] [id number] BY: [employer] Ebcuxp3587 [facility] [id number] ALP [Catalytic activity/Vol] 83 [iU]/L Normal 39-117 [facility] Work Phone: Comment on above: Test(s) 308242-HHU-K ; 333019-DGI-P; 225914-KPW-A; 295879-Qsumnutqesxxf; 096211-Jevtfsioaoq, Total; 034468-SPP-N (Total);030107-Mkxcx LDL-P; 999558-CAL Size; 645019-OL-OT Scorewas developed and its performance characteristics determinedby [employer]. It has not been cleared or approved by the Foodand Drug Administration.PATIENT WAS FASTINGPERFORMED BY: LogicLadder[address] [id number] BY: [employer] Euixcc8942 [facility] [id number] ALP [Catalytic activity/Vol] 83 U/L Normal 39-117 [facility]; [facility] Work Phone: Comment on above: Test(s) 771498-OPJ-R ; 360809-GKI-R; 052381-JYK-Y; 460243-Gidgbkqhmbhyq; 908812-Zhszntzqzrd, Total; 243666-YTG-D (Total);039845-Pedra LDL-P; 460046-PRA Size; 048482-LT-GA Scorewas developed and its performance characteristics determinedby [employer]. It has not been cleared or approved by the Foodand Drug Administration.PATIENT WAS FASTINGPERFORMED BY: LogicLadder[address] [id number] BY: [employer] Cbuaeq4466 [facility] [id number] ALT [Catalytic activity/Vol] 20 [iU]/L Normal 0-44 [facility] Work Phone: Comment on above: Test(s) 503648-BDX-H ; 424436-SEZ-J; 339980-GNG-X; 515676-Sqnjqmxixviuw; 072379-Krqweldmxiq, Total; 704457-WBL-P (Total);876887-Jszck LDL-P; 864852-RAQ Size; 933778-WK-FT Scorewas developed and its performance characteristics determinedby [employer]. It has not been cleared or approved by the Foodand Drug Administration.PATIENT WAS FASTINGPERFORMED BY: [employer] [id number] BY: Smart Imaging SystemsRobert Wood Johnson University Hospital SomersetCuqckm9125 [facility] [facility] [id number] ALT [Catalytic activity/Vol] 20 U/L Normal 0-44 [facility]; [facility] Work Phone: Comment on above: Test(s) 172834-ZXQ-W ; 025528-XGO-R; 841596-BBW-J; 031325-Rsfetoriisszj; 541497-Uxeopvbrgnh, Total; 542684-BDN-M (Total);437052-Yturl LDL-P; 341516-GNK Size; 973574-FY-MV Scorewas developed and its performance characteristics determinedby [employer]. It has not been cleared or approved by the Foodand Drug Administration.PATIENT WAS FASTINGPERFORMED BY: [employer] [id number] BY: Smart Imaging SystemsRobert Wood Johnson University Hospital SomersetSacwzt7248 [facility] [id number] AST [Catalytic activity/Vol] 21 [iU]/L Normal 0-40 [facility] Internal Medicine Work Phone: Comment on above: Test(s) 709146-NPU-L ; 804876-FVY-M; 001322-LFX-H; 770192-Kibxontrfdcac; 539929-Upvwncqxzba, Total; 167412-AJC-E (Total);949839-Yunod LDL-P; 028785-EXF Size; 952686-IE-LP Scorewas developed and its performance characteristics determinedby [employer]. It has not been cleared or approved by the Foodand Drug Administration.PATIENT WAS FASTINGPERFORMED BY: [employer] [id number] BY: Smart Imaging SystemsRobert Wood Johnson University Hospital SomersetYfmhnu6787 [facility] [id number] AST [Catalytic activity/Vol] 21 U/L Normal 0-40 [facility]; [facility] Work Phone: Comment on above: Test(s) 778891-EIU-W ; 492520-LFL-V; 172919-FSU-Z; 193285-Tojfmxgdwyvwe; 630128-Zdkbzpqlbxs, Total; 009544-ORE-Q (Total);667202-Jwywp LDL-P; 975730-ECF Size; 235360-GQ-EM Scorewas developed and its performance characteristics determinedby [employer]. It has not been cleared or approved by the Foodand Drug Administration.PATIENT WAS FASTINGPERFORMED BY: [address] [id number] BY: You.Do70 [facility] [id number] Bilirubin [Mass/Vol] 0.5 mg/dL Normal 0.0-1.2 [facility] Internal Medicine Work Phone: Comment on above: Test(s) 542766-PFC-Z ; 795081-UUX-J; 658517-AZT-C; 936533-Ugnzhyaluclwb; 349914-Dumcjxlyljf, Total; 431463-YIS-H (Total);665348-Wudof LDL-P; 711839-ODH Size; 593729-TZ-EA Scorewas developed and its performance characteristics determinedby [employer]. It has not been cleared or approved by the Foodand Drug Administration.PATIENT WAS FASTINGPERFORMED BY: [employer] [address] [id number] BY: [employer]6370 [facility] [id number] Calcium [Mass/Vol] 9.2 mg/dL Normal 8.7-10.2 [facility] Internal Medicine Work Phone: Comment on above: Test(s) 246898-OGZ-C ; 216847-DGQ-Y; 092028-OYW-P; 281391-Zthfllkirctka; 819969-Tuwjaremlnv, Total; 913930-CSW-G (Total);296017-Pymwv LDL-P; 806657-LDX Size; 228893-ZB-IR Scorewas developed and its performance characteristics determinedby [employer]. It has not been cleared or approved by the Foodand Drug Administration.PATIENT WAS FASTINGPERFORMED BY: [address] [id number] BY: Smart Imaging SystemsUNM Children's Psychiatric CenterCanzlo1471 [facility] [id number] Chloride [Moles/Vol] 104 mmol/L Normal 96-106 [facility] Work Phone: Comment on above: Test(s) 140879-DKV-L ; 693732-EOS-L; 809201-VII-S; 531786-Gudkzcdyupvok; 725847-Tllxkgwagcj, Total; 637341-HPG-K (Total);981098-Csltz LDL-P; 043918-UFL Size; 389043-IN-AG Scorewas developed and its performance characteristics determinedby [employer]. It has not been cleared or approved by the Foodand Drug Administration.PATIENT WAS FASTINGPERFORMED BY: [address] [id number] BY: [employer] Imaging SystemsUNM Children's Psychiatric CenterTdfaxm5011 [facility] [id number] CO2 [Moles/Vol] 21 mmol/L Normal 20-[address] [facility] Internal Medicine Work Phone: Comment on above: Test(s) 642724-SZW-O ; 851548-RSG-S; 392129-HNG-Q; 551978-Egscrindzzmzi; 591765-Nmibqqfbdhq, Total; 873513-XOR-K (Total);207313-Eqnwk LDL-P; 980593-LEW Size; 089323-VZ-PH Scorewas developed and its performance characteristics determinedby [employer]. It has not been cleared or approved by the Foodand Drug Administration.PATIENT WAS FASTINGPERFORMED BY: [address] [id number] BY: Smart Imaging SystemsRobert Wood Johnson University Hospital SomersetIcczmr9384 [facility] [id number] Creatinine [Mass/Vol] 0.69 mg/dL Abnormal 0.76-1.27 [facility] Internal Medicine Work Phone: Comment on above: Test(s) 541275-KGG-E ; 660016-HEU-M; 986074-TSF-N; 053628-Jmxsqroswjqkz; 269212-Jmsgphvlsuv, Total; 881364-DNZ-C (Total);871524-Osvvk LDL-P; 382338-UED Size; 534286-FH-PK Scorewas developed and its performance characteristics determinedby [employer]. It has not been cleared or approved by the Foodand Drug Administration.PATIENT WAS FASTINGPERFORMED BY: [address] [id number] BY: You.Do70 [facility] [id number] GFR/1.73 sq M predicted among blacks CKD-EPI (S/P/Bld) [Vol rate/Area] 121 mL/min/1.73 Normal [facility] Work Phone: Comment on above: Test(s) 631495-MRV-J ; 093536-JVX-Z; 855236-ODA-R; 265330-Bhuishrtwduar; 000601-Csvjwuitsux, Total; 754816-XRT-T (Total);903040-Safew LDL-P; 329739-LTC Size; 037790-FP-BR Scorewas developed and its performance characteristics determinedby [employer]. It has not been cleared or approved by the Foodand Drug Administration.PATIENT WAS FASTINGPERFORMED BY: [address] [id number] BY: [employer] Fhsjrc7367 [facility] [id number] GFR/1.73 sq M predicted among non-blacks CKD-EPI (S/P/Bld) [Vol rate/Area] 105 mL/min/1.73 Normal [facility] Work Phone: Comment on above: Test(s) 693051-QVM-B ; 656088-MWD-V; 998153-HFH-Z; 966661-Tvmftotvdysee; 548745-Uirbufdactx, Total; 910449-UMO-P (Total);790057-Fbbbp LDL-P; 134338-XUM Size; 692079-LL-EO Scorewas developed and its performance characteristics determinedby [employer]. It has not been cleared or approved by the Foodand Drug Administration.PATIENT WAS FASTINGPERFORMED BY: [employer] [id number] BY: [employer] Imaging SystemsUNM Children's Psychiatric CenterVqsemv2598 [facility] [id number] Globulin (S) [Mass/Vol] 2.7 g/dL Normal 1.5-4.5 [facility] Internal Medicine Work Phone: Comment on above: Test(s) 254593-AIP-E ; 760825-DEG-Y; 913278-JSV-K; 010446-Zygjzumrrwsix; 118146-Wevjgdvevup, Total; 215491-OYA-F (Total);297013-Hrrsm LDL-P; 542389-ECX Size; 329195-LN-WN Scorewas developed and its performance characteristics determinedby [employer]. It has not been cleared or approved by the Foodand Drug Administration.PATIENT WAS FASTINGPERFORMED BY: [employer] [address] [id number] BY: [employer] Imaging SystemsUNM Children's Psychiatric CenterAgdrpb7746 [facility] [id number] Glucose [Mass/Vol] 89 mg/dL Normal 65-99 [facility] Internal Medicine Work Phone: Comment on above: Test(s) 662974-EWA-P ; 395393-PII-I; 752338-INP-L; 024765-Xvggxtifxcysm; 158216-Oijssdtwuwe, Total; 295795-LRQ-N (Total);296617-Mbmqt LDL-P; 646848-ZOS Size; 398293-TC-LW Scorewas developed and its performance characteristics determinedby [employer]. It has not been cleared or approved by the Foodand Drug Administration.PATIENT WAS FASTINGPERFORMED BY: [employer] [id number] BY: Smart Imaging SystemsRobert Wood Johnson University Hospital SomersetRhjwoe4059 [facility] [id number] Potassium [Moles/Vol] 4.4 mmol/L Normal 3.5-5.2 [facility] Internal Medicine Work Phone: Comment on above: Test(s) 414198-QYQ-I ; 566035-RHL-A; 409646-HLF-P; 932179-Evanztqhoadmh; 588219-Pzhypnsfdoy, Total; 759946-QKL-O (Total);447728-Enmtq LDL-P; 093912-QPD Size; 596147-SF-SB Scorewas developed and its performance characteristics determinedby [employer]. It has not been cleared or approved by the Foodand Drug Administration.PATIENT WAS FASTINGPERFORMED BY: LogicLadder[address] [id number] BY: You.Do70 [place] Rec[facility] MeGood Hope Hospital [id number] Protein [Mass/Vol] 7.1 g/dL Normal 6.0-8.5 [facility] Internal [facility] Work Phone: Comment on above: Test(s) 856064-XJR-O ; 873681-BSA-E; 930355-MMK-P; 423845-Soneazmkvrxcd; 707888-Ykbyqxxeafq, Total; 766361-UBO-C (Total);811541-Glrgv LDL-P; 913612-STZ Size; 363721-BL-QA Scorewas developed and its performance characteristics determinedby [employer]. It has not been cleared or approved by the Foodand Drug Administration.PATIENT WAS FASTINGPERFORMED BY: [address] [id number] BY: [employer]6370 [facility] [id number] Sodium [Moles/Vol] 143 mmol/L Normal 134-144 [facility] Internal Medicine Work Phone: Comment on above: Test(s) 836340-AYG-S ; 289345-XFI-M; 167093-LPY-H; 948219-Chosnrbxpywct; 354830-Mxkwhegvggj, Total; 169192-OEY-A (Total);878747-Twfsd LDL-P; 388723-QUL Size; 371716-IN-UP Scorewas developed and its performance characteristics determinedby [employer]. It has not been cleared or approved by the Foodand Drug Administration.PATIENT WAS FASTINGPERFORMED BY: [address] [id number] BY: Content CirclesUNM Children's Psychiatric CenterImnqpc5097 [facility] [id number] Urea nitrogen [Mass/Vol] 13 mg/dL Normal 6-24 [facility] Work Phone: Comment on above: Test(s) 623940-AEU-Y ; 035005-MAC-K; 152810-AWU-V; 139152-Alwawkjrqknjg; 965333-Yatiukxpjeg, Total; 010723-LMB-N (Total);081275-Uakbs LDL-P; 372327-JXD Size; 042979-GV-QO Scorewas developed and its performance characteristics determinedby [employer]. It has not been cleared or approved by the Foodand Drug Administration.PATIENT WAS FASTINGPERFORMED BY: LogicLadder[address] [id number] BY: You.Do70 [facility] [id number] Urea nitrogen/Creatinine [Mass ratio] 19 mg/mg Normal 9-20 [facility] Work Phone: Comment on above: Test(s) 473323-DAG-T ; 913248-WXS-Y; 137179-BYM-Z; 250223-Srnctolgcrrpa; 319192-Dfhitfaubgo, Total; 522710-VTJ-S (Total);595628-Wznff LDL-P; 156004-UBV Size; 853212-QA-WS Scorewas developed and its performance characteristics determinedby [employer]. It has not been cleared or approved by the Foodand Drug Administration.PATIENT WAS FASTINGPERFORMED BY: [address] [id number] BY: [employer] Faynbd4208 [facility] [id number] MICROALBUMINOrdered By: Syst em Fretted Instrument Inspector on 04-13-2019 Albumin DL <= 20 mg/L (U) [Mass/Vol] 3.8 ug/mL Normal [facility] Work Phone: Comment on above: Test(s) 266495-VNK-K ; 670802-PGK-S; 229431-ACD-L; 290725-Kduccaymemarm; 330314-Xqcsrrbopdv, Total; 675653-OIQ-A (Total);839437-Uprud LDL-P; 182430-IYM Size; 023321-HC-CO Scorewas developed and its performance characteristics determinedby [employer]. It has not been cleared or approved by the Foodand Drug Administration.PATIENT WAS FASTINGPERFORMED BY: LogicLadder[address] [id number] BY: You.Do70 [facility]texGood [facility] Hospital [id number] Albumin/Creatinine (U) [Mass ratio] 3.5 {mg/g_creat} Normal 0.0-30.0 [facility] Work Phone: Comment on above: Normal: 0.0 - 30.0 A lbuminuria: 31.0 - 300.0 Clinical albuminuria: >300.0 Test(s) 848677-SWR-D ; 146127-WDJ-Y; 206266-MRG-E; 737211-Wetbayzbycwgq; 582906-Thusxetgjlu, Total; 957866-AFY-L (Total);707727-Hcesi LDL-P; 658655-VDJ Size; 219469-TH-RD Scorewas developed and its performance characteristics determinedby [employer]. It has not been cleared or approved by the FoodInstagarage Drug Administration.PATIENT WAS FASTINGPERFORMED BY: [address] [id number] BY: [employer]6370 [place] Fix[employer] Networks IncCannon Memorial Hospital [id number] Creatinine (U) [Mass/Vol] 108.8 mg/dL Normal [facility] Work Phone: Comment on above: Test(s) 606933-UKW-T ; 670792-HWF-M; 948233-GHT-D; 910909-Hwmzypdxqpsjy; 044394-Xtxozfddllx, Total; 652333-TQG-Z (Total);647976-Tiylx LDL-P; 235992-JQS Size; 215123-RP-CP Scorewas developed and its performance characteristics determinedby [employer]. It has not been cleared or approved by the Foodand Drug Administration.PATIENT WAS FASTINGPERFORMED BY: [address] [id number] BY: [employer] Tltbvl6031 [place] Recite MeGood Hope Hospital [id number] NMR Profile (19899)Ordered B y: Fish Hatchery Worker on 04-13-2019 Cholesterol [Mass/Vol] 162 mg/dL Normal 100-199 [facility] Internal Medicine Work Phone: Comment on above: Test(s) 179193-UWC-B ; 070052-GTN-N; 054737-UIQ-L; 504041-Qanzshcjieeuf; 452469-Umrxuvgfjpa, Total; 220142-YMW-D (Total);646432-Rvqog LDL-P; 185578-NGZ Size; 438900-JP-WM Scorewas developed and its performance characteristics determinedby [employer]. It has not been cleared or approved by the Foodand Drug Administration.PATIENT WAS FASTINGPERFORMED BY: [address] [id number] BY: You.Do70 [place] Recite MeGood Hope Hospital [id number] Lipoprotein.alpha [Moles/Vol] 35.8 umol/L Normal [facility] Internal Medicine Work Phone: Comment on above: Test(s) 308154-YBF-E ; 654466-TPO-Q; 870445-IEE-S; 358307-Iszcxlmcezcim; 952333-Kwamfyjgyqr, Total; 710479-EXG-X (Total);372881-Yjdnc LDL-P; 808218-PHA Size; 118855-BA-ZW Scorewas developed and its performance characteristics determinedby [employer]. It has not been cleared or approved by the Foodand Drug Administration.PATIENT WAS FASTINGPERFORMED BY: [address] [id number] BY: You.Do70 [facility] [id number] Lipoprotein.beta.subpar ticle [Entitic length] 20.[address] [facility] Internal Medicine Work Phone: Comment [...] not afterLDL-P is taken into account. Test(s) 374553-PJR-F ; 089643-PEG-R; 735663-YFB-W; 985944-Ovmerqdxuemsr; 216346-Kqhszwditfp, Total; 240529-YJW-D (Total);438411-Tcgji LDL-P; 948410-HCJ Size; 440969-AU-DO Scorewas developed and its performance characteristics determinedby [employer]. It has not been cleared or approved by the Foodand Drug Administration.PATIENT WAS FASTINGPERFORMED BY: LabEffdon[address] [id number] BY: LabEffdonRobert Wood Johnson University Hospital SomersetGzsocg9948 [facility] [id number] Lipoprotein.beta.subpar ticle [Moles/Vol] 823 nmol/L Normal [facility] Internal Medicine Work Phone: Comment on above: Low < 1000 Moderate 1000 - 1299 Borderline-High 1300 - 1599 High 1600 - 2000 Very High > 2000 Test(s) 598274-BPP-Q ; 888141-UPG-I; 653746-AKK-M; 222827-Zyffhlcnyrcmd; 912952-Lewykksawrf, Total; 489207-VVF-P (Total);751760-Rjpgn LDL-P; 758269-OAO Size; 771091-NM-UX Scorewas developed and its performance characteristics determinedby [employer]. It has not been cleared or approved by the Foodand Drug Administration.PATIENT WAS FASTINGPERFORMED BY: LogicLadder[address] [id number] BY: UnisfairCannon Memorial Hospital [id number] Lipoprotein.beta.subpar ticle.small [Moles/Vol] 560 nmol/L Abnormal Comprehe nsive Internal Medicine Work Phone: Comment on above: Test(s) 013339-JBY-C ; 405404-AML-Z; 206314-ATT-J; 092088-Zvmlfwlbipqsy; 954144-Wnwxmxeayrq, Total; 264662-LQC-O (Total);448052-Yqplr LDL-P; 674508-HPH Size; 419211-UT-KI Scorewas developed and its performance characteristics determinedby [employer]. It has not been cleared or approved by the Foodand Drug Administration.PATIENT WAS FASTINGPERFORMED BY: [address] [id number] BY: [employer]6370 [facility] [id number] Triglyceride [Mass/Vol] 226 mg/dL Abnormal 0-149 C omprehensive Internal Medicine Work Phone: Comment on above: Test(s) 028226-VHT-L ; 314122-SOH-J; 365515-HBE-Z; 327491-Jlqcngxfbbfen; 661267-Hntdeapddne, Total; 578970-KQM-Q (Total);819409-Fnvjl LDL-P; 570402-URK Size; 209822-ZE-JS Scorewas developed and its performance characteristics determinedby [employer]. It has not been cleared or approved by the Foodand Drug Administration.PATIENT WAS FASTINGPERFORMED BY: [address]ronis[address] [id number] BY: [employer] Bmogjg4142 [facility] [id number] NMR Profile (88336) 64 mg/dL Normal 0-99 [facility] Internal Medicine Work Phone: Comment on above: . Optimal < 100 Abov e optimal 100 - 129 Borderline 130 - 159 High 160 - 189 Very high > 189 .LDL-C is inaccurate if patient is non-fasting. Test(s) 819469-KTH-B ; 961148-RZM-E; 900556-QWA-F; 842379-Rtlkyxxikshun; 743729-Whqkgqnofrv, Total; 266618-MTC-A (Total);635547-Tmggk LDL-P; 765059-LQB Size; 210861-KL-GD Scorewas developed and its performance characteristics determinedby [employer]. It has not been cleared or approved by the FoodInstagarage Drug Administration.PATIENT WAS FASTINGPERFORMED BY: [address] [id number] BY: You.Do70 [facility] [id number] NMR Profile (88856) 53 mg/dL Normal [facility] Internal [facility] Work Phone: Comment on above: Test(s) 898439-YPD-K ; 250837-UQQ-K; 553921-XGA-T; 348612-Ynclrmvsbygen; 036341-Qpjjlhpnhtl, Total; 020503-PKJ-M (Total);293304-Aakga LDL-P; 758524-HQE Size; 045460-OI-JZ Scorewas developed and its performance characteristics determinedby [employer]. It has not been cleared or approved by the Foodand Drug Administration.PATIENT WAS FASTINGPERFORMED BY: [address] [id number] BY: [employer] Csteyg5663 [facility] [id number] NMR Profile (28367) 226 mg/dL Abnormal 0-149 [facility]erens[facility]; [facility] Work Phone: NMR Profile (84702) 162 mg/dL Normal 100-199 [facility] Internal Medicine; [facility] Work Phone: PSA (PROSTATE SPECIFIC ANTIG EN) (V76.44)Ordered By: Fish Hatchery Worker on 04-13-2019 Prostate specific Ag [Mass/Vol] 0.3 ng/mL Normal 0.0-4.0 [facility] Internal Medicine Work Phone: Comment on above: Deanna ECLIA methodol ogy. .According to the [place] [employer], Serum PSA shoulddecrease and remain at undetectable levels after radicalprostatectomy. The AUA defines biochemical recurrence as an initialPSA value 0.2 ng/mL or greater followed by a subsequent confirmatoryPSA value 0.2 ng/mL or greater.Values obtained with different assay methods or kits cannot be usedinterchangeably. Results cannot be interpreted as absolute evidenceof the presence or absence of malignant disease. Test(s) 081740-SQJ-X ; 519018-MCX-E; 595970-PQB-I; 943719-Pyyaquolxrvsa; 904068-Flaftjgzjvy, Total; 848038-UHV-D (Total);099860-Nmcdz LDL-P; 026738-ZJZ Size; 244934-ZF-NT Scorewas developed and its performance characteristics determinedby [employer]. It has not been cleared or approved by the Foodand Drug Administration.PATIENT WAS FASTINGPERFORMED BY: [facility] Fnmbxmmown9590 [facility] [id number] BY: LabEffdonRobert Wood Johnson University Hospital SomersetNoaihl9390 [facility] [id number] URINALYSIS, W/ MICRO (14188) Ordered By: Fish Hatchery Worker on 04-13-2019 Appearance (U) Clear Normal Comprehens arianna Internal Medicine Work Phone: Comment on above: Test(s) 206553-KEB-L ; 004753-JSM-A; 163365-FZI-C; 004663-Sfljkqlfytbxj; 038672-Nlssvvtaywp, Total; 045334-GRS-G (Total);853771-Ljbyb LDL-P; 856139-OMA Size; 182245-UR-GJ Scorewas developed and its performance characteristics determinedby [employer]. It has not been cleared or approved by the Foodand Drug Administration.PATIENT WAS FASTINGPERFORMED BY: [address]ronis[address] [id number] BY: You.Do70 [place] Recite MeGood Hope Hospital [id number] Bilirubin Ql (U) Negative Normal Comprehe nsive Internal Medicine Work Phone: Comment on above: Test(s) 761356-POF-W ; 329406-MYO-G; 382626-HMQ-I; 563583-Pdfvfdpgmpcbn; 577802-Ynbboshdydd, Total; 198434-LUW-Y (Total);763465-Lczqj LDL-P; 043974-SIJ Size; 029591-HB-PO Scorewas developed and its performance characteristics determinedby [employer]. It has not been cleared or approved by the Foodand Drug Administration.PATIENT WAS FASTINGPERFORMED BY: [address] [id number] BY: You.Do70 BodeTreeCannon Memorial Hospital [id number] Bilirubin Ql (U) Negative Normal Comprehe nsive Internal Medicine; [facility] Work Phone: Comment on above: Test(s) 906460-DUU-Z ; 387317-WPJ-N; 850779-LFB-G; 847080-Fzhemlwkxkvmn; 426875-Lpktvddluel, Total; 278363-SNF-S (Total);284110-Ryoux LDL-P; 791758-VRO Size; 932964-IT-FZ Scorewas developed and its performance characteristics determinedby [employer]. It has not been cleared or approved by the Foodand Drug Administration.PATIENT WAS FASTINGPERFORMED BY: [address] [id number] BY: You.Do70 OxtexGood Hope Hospital [id number] Color (U) Yellow Normal [facility] Work Phone: Comment on above: Test(s) 096814-WUY-U ; 468996-VVU-I; 017155-TBD-Q; 009290-Jfwkkbzeehfas; 060859-Koglwyugvbp, Total; 913460-LJY-F (Total);023737-Pmaap LDL-P; 656815-WKN Size; 438923-LF-DE Scorewas developed and its performance characteristics determinedby [employer]. It has not been cleared or approved by the Foodand Drug Administration.PATIENT WAS FASTINGPERFORMED BY: [address] [id number] BY: Smart Imaging SystemsRobert Wood Johnson University Hospital SomersetGrvvim[address] [place] [address] [id number] Glucose Ql (U) Negative Normal Comprehens [facility] Internal Medicine Work Phone: Comment on above: Test(s) 154436-ZZW-H ; 388530-KYP-J; 595623-YGI-Y; 220774-Fnimeactncwoa; 559960-Sfzkvsubvzv, Total; 824629-VGX-D (Total);647392-Uryxv LDL-P; 666978-HHR Size; 683401-LB-VR Scorewas developed and its performance characteristics determinedby [employer]. It has not been cleared or approved by the Foodand Drug Administration.PATIENT WAS FASTINGPERFORMED BY: [address] [id number] BY: Smart Imaging SystemsRobert Wood Johnson University Hospital SomersetWzxndo3717 [facility] [id number] Glucose Ql (U) Negative Normal Comprehens [facility] Internal Medicine; [facility] Work Phone: Comment on above: Test(s) 607340-DCQ-O ; 271701-BNY-K; 948186-JRB-Z; 328621-Hpaazioobycaa; 256809-Mfxgaqhlycg, Total; 204324-ZBN-W (Total);871704-Nbojw LDL-P; 741531-SJV Size; 870482-TH-HA Scorewas developed and its performance characteristics determinedby [employer]. It has not been cleared or approved by the Foodand Drug Administration.PATIENT WAS FASTINGPERFORMED BY: BN [facility] Bodruhlxhw3125 [facility] [id number] BY: Smart Imaging SystemsRobert Wood Johnson University Hospital SomersetGwjxjq0019 [facility] [id number] Hemoglobin Ql (U) Negative Normal Compreh ensive Internal Medicine Work Phone: Comment on above: Test(s) 460399-UFJ-L ; 251890-JNS-V; 142091-DZA-N; 665354-Cjhdazbjeusry; 912426-Kxqpoxwblze, Total; 217717-XNE-T (Total);101484-Apobn LDL-P; 654454-DZT Size; 122895-GD-AE Scorewas developed and its performance characteristics determinedby [employer]. It has not been cleared or approved by the Foodand Drug Administration.PATIENT WAS FASTINGPERFORMED BY: [address] [id number] BY: [employer] Yofbfs0126 [facility] [id number] Hemoglobin Ql (U) Negative Normal Compreh ensive Internal Medicine; [facility] Work Phone: Comment on above: Test(s) 387995-FUI-O ; 538602-NVE-E; 849606-ILD-P; 272076-Cfwdlxpgxmxup; 053929-Cdfioajznhu, Total; 638884-JOW-T (Total);254260-Geueq LDL-P; 614971-BRJ Size; 124805-RA-LX Scorewas developed and its performance characteristics determinedby [employer]. It has not been cleared or approved by the Foodand Drug Administration.PATIENT WAS FASTINGPERFORMED BY: [address] [id number] BY: Smart Imaging SystemsRobert Wood Johnson University Hospital SomersetBuibej0264 [facility] [id number] Ketones Ql (U) Negative Normal Comprehens arianna Internal Medicine Work Phone: Comment on above: Test(s) 026121-EME-Q ; 003205-IRS-C; 230840-OTQ-A; 576751-Bxymnznjosbhe; 946121-Iiuohwygscr, Total; 562757-FGE-V (Total);041655-Ddkxh LDL-P; 716560-PGC Size; 429125-LK-OU Scorewas developed and its performance characteristics determinedby [employer]. It has not been cleared or approved by the Foodand Drug Administration.PATIENT WAS FASTINGPERFORMED BY: [address]ronis[address] [id number] BY: [employer] Mukuqg3426 [facility] [id number] Ketones Ql (U) Negative Normal Comprehens arianna Internal Medicine; [facility] Work Phone: Comment on above: Test(s) 653734-EOA-T ; 773924-FCF-F; 134036-WLX-O; 497408-Nkqifyjvmohei; 783031-Wllfezvnciv, Total; 479737-IZR-B (Total);763218-Kwvxy LDL-P; 073941-HUZ Size; 711697-IC-ZA Scorewas developed and its performance characteristics determinedby [employer]. It has not been cleared or approved by the Foodand Drug Administration.PATIENT WAS FASTINGPERFORMED BY: [address] [id number] BY: You.Do70 [facility]TreeC[facility] [id number] Leukocyte esterase Test strip Ql (U) Negative Normal [facility] Work Phone: Comment on above: Test(s) 226275-TCH-G ; 171355-QMY-M; 551192-KZZ-M; 618971-Ktithlnmzgngc; 021261-Ucjyejctwdo, Total; 574447-FIA-X (Total);829324-Lkaam LDL-P; 554155-AWN Size; 664957-VV-KN Scorewas developed and its performance characteristics determinedby [employer]. It has not been cleared or approved by the Foodand Drug Administration.PATIENT WAS FASTINGPERFORMED BY: [address] [id number] BY: [employer]6370 [facility] [id number] Leukocyte esterase Test strip Ql (U) Negative Normal [facility]; [facility] Work Phone: Comment on above: Test(s) 698841-FIS-L ; 180400-RQA-T; 019773-YBN-Q; 757861-Zxphjuzrikewi; 713999-Vrqdwmtdzfx, Total; 777220-LQU-F (Total);764593-Zxdxq LDL-P; 516009-TZT Size; 356561-KE-UC Scorewas developed and its performance characteristics determinedby [employer]. It has not been cleared or approved by the Foodand Drug Administration.PATIENT WAS FASTINGPERFORMED BY: [address] [id number] BY: opvizor [facility] [id number] Microscopic observation LM Nom (Urine sed) See below: Normal [facility] Work Phone: Comment on above: Microscopic was lynnette cated and was performed. Test(s) 307729-QPJ-T ; 505125-TSQ-A; 789114-PVE-N; 366977-Rtrxomplhyewh; 540059-Nsmbbswndmg, Total; 540035-ESC-D (Total);834641-Sqwsi LDL-P; 668327-DMS Size; 524378-VI-LE Scorewas developed and its performance characteristics determinedby [employer]. It has not been cleared or approved by the Foodand Drug Administration.PATIENT WAS FASTINGPERFORMED BY: [address] [id number] BY: [employer]6370 [facility] [id number] Microscopic observation LM Nom (Urine sed) MICRON Normal [facility] Work Phone: Comment on above: Microscopic follows if indicated. Test(s) 123993-PNC-S ; 166270-JYL-K; 374864-EGK-U; 070785-Fmdwuonbiqram; 520081-Fzsodnmqzvt, Total; 697183-CUP-N (Total);977359-Owssg LDL-P; 878629-XZQ Size; 241176-AK-WY Scorewas developed and its performance characteristics determinedby [employer]. It has not been cleared or approved by the Foodand Drug Administration.PATIENT WAS FASTINGPERFORMED BY: [address] [id number] BY: [employer] Pqqryv2291 [facility] [id number] Nitrite Ql (U) Negative Normal Comprehens arianna Internal Medicine Work Phone: Comment on above: Test(s) 347451-HMW-I ; 014293-FAP-D; 131190-AHI-X; 616646-Byhncigvokpif; 148005-Jjootxptwoi, Total; 982934-TWS-H (Total);408626-Urjky LDL-P; 290959-THU Size; 864942-KG-YJ Scorewas developed and its performance characteristics determinedby [employer]. It has not been cleared or approved by the Foodand Drug Administration.PATIENT WAS FASTINGPERFORMED BY: [address] [id number] BY: [employer]6370 [facility] [id number] Nitrite Ql (U) Negative Normal Comprehens arianna Internal Medicine; [facility] Work Phone: Comment on above: Test(s) 806464-SPQ-N ; 111804-MBX-S; 278818-FFJ-Y; 278658-Wqqjugtpzbref; 412464-Nocwfpvdxmx, Total; 936091-DIV-L (Total);723333-Rzzmk LDL-P; 351274-BCG Size; 491622-FJ-RG Scorewas developed and its performance characteristics determinedby [employer]. It has not been cleared or approved by the Foodand Drug Administration.PATIENT WAS FASTINGPERFORMED BY: [address] [id number] BY: [employer]6370 [facility] [id number] pH (U) 7.0 [pH] Normal 5.0-7.5 [facility] Work Phone: Comment on above: Test(s) 664522-JWJ-P ; 258001-REB-V; 384565-VRI-R; 897026-Whwjuxcwphtie; 070682-Tieuhxmnfkh, Total; 152413-EZN-F (Total);039236-Xnzrm LDL-P; 151850-JRX Size; 090769-EW-RJ Scorewas developed and its performance characteristics determinedby [employer]. It has not been cleared or approved by the Foodand Drug Administration.PATIENT WAS FASTINGPERFORMED BY: [address] [id number] BY: Klypper70 [facility] [id number] Protein Ql (U) Negative Normal Comprehens arianna Internal Medicine Work Phone: Comment on above: Test(s) 772064-FQA-W ; 432417-SOZ-F; 027066-FOR-V; 262360-Zuktxspeqipxg; 324824-Tqscbzinpru, Total; 353644-CDT-D (Total);684528-[place]oga LDL-P; 026980-VNG Size; 123047-RP-YQ Scorewas developed and its performance characteristics determinedby [employer]. It has not been cleared or approved by the Foodand Drug Administration.PATIENT WAS FASTINGPERFORMED BY: LogicLadder[address] [id number] BY: You.Do70 [facility] [id number] Protein Ql (U) Negative Normal Comprehens arianna Internal Medicine; [facility] Work Phone: Comment on above: Test(s) 944257-KXX-X ; 515797-QDQ-J; 393756-DDP-T; 447032-Vmsghrkhnxtrj; 270751-Sqkmcenkqls, Total; 295513-CEC-Z (Total);690247-Avlzn LDL-P; 502750-NMC Size; 241567-SW-YT Scorewas developed and its performance characteristics determinedby [employer]. It has not been cleared or approved by the Foodand Drug Administration.PATIENT WAS FASTINGPERFORMED BY: [address] [id number] BY: [employer]6370 [facility]ureUofL [facility] [id number] Specific gravity (U) [Rel density] 1.018 1 Normal 1.005-1.03 0 [facility] Work Phone: Comment on above: Test(s) 801893-INP-O ; 358974-UCP-S; 632031-EGN-A; 606661-Ogkemqoanyiiq; 609278-Efgvzmvapom, Total; 573720-SEN-H (Total);648568-Zofre LDL-P; 818771-COA Size; 458146-FI-MC Scorewas developed and its performance characteristics determinedby [employer]. It has not been cleared or approved by the Foodand Drug Administration.PATIENT WAS FASTINGPERFORMED BY: LogicLadder[address] [id number] BY: You.Do70 [facility] [id number] Urobilinogen (U) [Mass/Vol] 0.2 mg/dL Normal 0.2-1.0 [facility]; [facility] Work Phone: Comment on above: Test(s) 473759-ZCP-T ; 339930-IFF-Q; 777358-JYZ-C; 437526-Rkauugintsuur; 282305-Wpkpkeckynq, Total; 666031-IPD-B (Total);446080-Tdwkh LDL-P; 420818-CCK Size; 569951-MP-HP Scorewas developed and its performance characteristics determinedby [employer]. It has not been cleared or approved by the Foodand Drug Administration.PATIENT WAS FASTINGPERFORMED BY: [address] [id number] BY: [employer]6370 [facility] [id number] Urobilinogen Test strip (U) [Mass/Vol] 0.2 mg/dL Normal 0.2-1.0 [facility] Work Phone: Comment on above: Test(s) 305870-RCQ-D ; 072416-QLR-Y; 969127-MQT-S; 203283-Dijtfdepwcows; 099818-Yhjrslohixp, Total; 466795-TAL-T (Total);731222-Qosss LDL-P; 968522-TWC Size; 221420-KK-ZX Scorewas developed and its performance characteristics determinedby [facility]. It has not been cleared or approved by the Foodand Drug Administration.PATIENT WAS FASTINGPERFORMED BY: [facility]1447 [facility] [id number] BY: [place] 1731070 [facility] [id number] Sputum Culture (43270)Ordere d By: Fish Hatchery Worker on 10-28-2018 Epithelial cells.squamous LM Ql (Sput) None seen Normal [facility] Work Phone: Comment on above: PATIENT NOT FASTINGP ERFORMED BY: [facility]6370 [facility] [id number] Information: SRC:SP Microscopic observation Gram stain Nom (Sput) GSACC Normal Comprehens arianna Internal Medicine Work Phone: Comment on above: This specimen is of good quality and is acceptable for routinebacterial culture. PATIENT NOT FASTINGP ERFORMED BY: [facility]6370 [facility] [id number] Information: SRC:SP Microscopic observation Gram stain Nom (Sput) PCF Normal Comprehens arianna Internal Medicine Work Phone: Comment on above: Few gram positive co cciFew gram variable coccobacilli PATIENT NOT FASTINGP ERFORMED BY: [facility]6370 [facility] [id number] Information: SRC:SP WBC LM Ql (Sput) None seen Normal Comprehe nsive Internal Medicine Work Phone: Comment on above: PATIENT NOT FASTINGP ERFORMED BY: [facility]6370 [facility] [id number] Information: SRC:SP Basic Metabolic Profile (BMP )on 10-13-2018 Basic metabolic 2000 panel 8.8 mg/dL Normal 8.5-10.1 [facility] Work Phone: Comment on above: [facility] [address] [place], [place], [address] Basic metabolic 2000 panel 17.8 {RATIO} Normal 10-20 [facility] Work Phone: Comment on above: [facility] [address] [place], [address] Basic metabolic 2000 panel 120 mL/min Normal [facility] Work Phone: Comment on above: GFR Calc [facility] [address] [place], [address] Basic metabolic 2000 panel 99 mL/min Normal [facility] Work Phone: Comment on above: Non- GFR Calc [facility] [address] [place], [place], [address] Basic metabolic 2000 panel 0.84 mg/dL Normal 0.70-1.30 [facility] Work Phone: Comment on above: The validity of the calculated GFR AND GFRAA in patients over70 years has not been determined. Clinical correlation isessential. [facility] [address] [place], [place], [address] Basic metabolic 2000 panel 15 mg/dL Normal 7-18 [facility] Work Phone: Comment on above: [facility] [address] [place], [address] Basic metabolic 2000 panel 97 mg/dL Normal 74-106 [facility] Work Phone: Comment on above: Please note revised GLUCOSE reference range dombvocve00/02/2018. [facility] [address] [place], [place], [address] Basic metabolic 2000 panel 25.0 mmol/L Normal 21.0-32.0 [facility] Work Phone: Comment on above: [facility] [address] [place], [place], [address] Basic metabolic 2000 panel 108 mmol/L Abnormal 98-107 [facility] Work Phone: Comment on above: [facility] [address] [place], [place], [address] Basic metabolic 2000 panel 4 1 Abnormal 5-15 [facility] Work Phone: Comment on above: [facility] [address] [place], [place], [address] Basic metabolic 2000 panel 4.2 mmol/L Normal 3.5-5.1 [facility] Work Phone: Comment on above: [facility] [address] [place], [place], [address] Basic metabolic 2000 panel 137 mmol/L Normal 136-145 [facility] Work Phone: Comment on above: [facility] [address] [place], [place], [address] CBC-Complete Blood Cnt No Di ffon 10-13-2018 Erythrocyte distribution width (RBC) [Ratio] 14.1 % Normal 11.6-14.6 [facility] Work Phone: Comment on above: [facility] [address] [place], [place], [address] Hematocrit (Bld) [Volume fraction] 41.5 % Normal 40-54 [facility] Work Phone: Comment on above: [facility] [address] [place], [place], [address] Hemoglobin (Bld) [Mass/Vol] 13.6 g/dL Normal 13.0-16.5 [facility] Work Phone: Comment on above: [facility] [address] [place], [place], [address] MCH (RBC) [Entitic mass] 26.8 pg Abnormal 27.0-32.0 [facility] Work Phone: Comment on above: [facility] [address] [place], [address] MCHC (RBC) [Mass/Vol] 32.8 {g/gl} Normal 32-36 [facility] Internal Medicine Work Phone: Comment on above: [facility] [address] [place], [address] MCV (RBC) [Entitic vol] 81.7 fL Normal 80-94 [facility] Work Phone: Comment on above: [facility] [address] [place], [phone]) Platelet mean volume (Bld) [Entitic vol] 10.1 fL Normal 6.2-12.0 Comprehensiv Internal Medicine Work Phone: Comment on above: [facility] [address] [place], [address] Platelets (Bld) [#/Vol] 314 10*3/uL Normal 150-450 [facility] Work Phone: Comment on above: [facility] [address] [place], [address] RBC (Bld) [#/Vol] 5.08 {M/mm3} Normal 4.6-6.2 [facility] Internal Medicine Work Phone: Comment on above: [facility] [address] [place], [address] WBC (Bld) [#/Vol] 6.4 10*3/uL Normal 4.4-11.0 [facility] Internal Medicine Work Phone: Comment on above: [facility] [address] [place], [address] CBC-Complete Blood Cnt No Diff 41.7 fL Normal 35.1-43.9 [facility] Work Phone: Comment on above: [facility] [address] [place], [place], [address] IMMUNOHISTOCHEMISTRYon 09-30 IMMUNOHISTOCHEMISTRY See Note Normal Comp rehensive Internal Medicine Work Phone: Comment on above: Patient: MELIZA OVALLES : 1960 (58/M) Acct Num: [id number] Phys: aJy HICKS,Wolfgang Unit Num: [id number] Loc: EN Specimen: [id number] Received: 09/30/18 - 1224 Spec Type: IMMUNO TISSUES 1 TISSUES: A. Stomach, NOS SPECIMEN INFORMATION: Tissue Source: A - Antrum biopsy Clinical Info: Hiatal hernia Specimen Number: [id number] CPT code: 88996 METHODOLOGY: Deparaffinized sections of prefer/formalin-fixed tissue or [...] developed and their performance characteristics determined by [facility]. They may not have been cleared or approved by the U.S. Food and Drug Administration. The FDA has determined that such clearance or approval is not necessary. INTERPRETATION: A. Antrum, biopsy: Negative for Helicobacter pylori organisms. SJ:lisandra 10/01/18 PHYSICIAN AND INSTITUTION [place] [phone] Signed Ryan Tinoco MD 10/02/18 [facility] [address] [place], [place], [address] CALCIFIDIOL (99114) VIT D 25 on 08-26-2018 25-Hydroxyvitamin D2+25-Hydroxyvitamin D3 mass conc 32.1 ng/mL Normal 30.0-100.0 [facility] Work Phone: Comment on above: Vitamin D deficiency has been defined by the [place] ofMedicine and an Endocrine Society practice guideline as alevel of serum 25-OH vitamin D less than 20 ng/mL (1,2).The Endocrine Society went on to further define vitamin Dinsufficiency as a level between 21 and 29 ng/mL (2).1. IOM ([place] of Medicine). 2010. Dietary reference intakes for calcium and D. [place]: The National Academies Press.2. Rayne MF, Luan ST, Brittany ERVIN, et al. Evaluation, treatment, and prevention of vitamin D deficiency: an Endocrine Society clinical practice guideline. JCEM. 2010; 96(7):1911-30. PATIENT NOT FASTINGP ERFORMED BY: [employer] [facility] Lwvunzjktj5[address] [facility] [id number] BY: CB [facility] Vegblx7356 [address]aney RoadDublin [place] [id number] CBC (AUTO) (71221)on 019 Erythrocyte distribution width Ratio (RBC) 14.7 % Normal 12.3-15.4 [facility] Work Phone: Comment on above: PATIENT NOT FASTINGP ERFORMED BY: BN [facility] [address] [id number] BY: WISHI [facility] Tzmrin0277 Haney RoadDublin [place] [id number] Hematocrit Volume Fraction (Bld) 42.7 % Normal 37.5-51.0 [facility] Work Phone: Comment on above: PATIENT NOT FASTINGP ERFORMED BY: BN [facility] He[address]um[address] [id number] BY: CB [facility] Ctqvsn0742 [address]aney RoadDublin [place] [id number] Hemoglobin mass conc (Bld) 14.1 g/dL Normal 13.0-17.7 [facility] Work Phone: Comment on above: PATIENT NOT FASTINGP ERFORMED BY: BN [facility] [address] [id number] BY: CB [facility] Osywpd3965 [address]aney RoadDublin [place] [id number] MCH Entitic mass (RBC) 26.8 pg Normal 26.6-33.0 Co mprehensive Internal Medicine Work Phone: Comment on above: PATIENT NOT FASTINGP ERFORMED BY: [facility] [address] [id number] BY: [facility] Xlsizc0576 [facility] [id number] MCHC mass conc (RBC) 33.0 g/dL Normal 31.5-35.7 [facility] Work Phone: Comment on above: PATIENT NOT FASTINGP ERFORMED BY: [facility] [address] [id number] BY: CB [facility] Wgwlkr8084 [facility] [id number] MCV Entitic volume (RBC) 81 fL Normal 79-97 [facility] Work Phone: Comment on above: PATIENT NOT FASTINGP ERFORMED BY: LabCo[address] [id number] BY: [facility] Xvdafm1798 [facility] [id number] Platelets #/vol (Bld) 309 {x10E3/uL} Normal 150-379 [facility] Internal Medicine Work Phone: Comment on above: PATIENT NOT FASTINGP ERFORMED BY: [facility] [address] [id number] BY: [facility] Nhmmja9133 [facility] [id number] RBC #/vol (Bld) 5.27 {x10E6/uL} Normal 4.14-5.80 [facility] Work Phone: Comment on above: PATIENT NOT FASTINGP ERFORMED BY: [facility] [address] [id number] BY: [facility]CoRobert [facility] SomersetQdyrhj4986 [facility] [id number] WBC #/vol (Bld) 6.8 {x10E3/uL} Normal 3.4-10.8 [facility] Internal Medicine Work Phone: Comment on above: PATIENT NOT FASTINGP ERFORMED BY: BN [facility] Xmitzlcduj[address]35 [facility] [id number] BY: TONYA [facility] Rlzmxq4380 [address] RoadDublin [place] [id number] CBC (AUTO) (42156)Ordered By : Fish Hatchery Worker on 08-26-2018 Platelets (Bld) [#/Vol] 309 10*3/uL Normal 150-379 [facility]; [facility] Work Phone: Comment on above: PATIENT NOT FASTINGP ERFORMED BY: BN [facility] [address] [id number] BY: TONYA [facility] Hhnvqe6167 [address] RoadDublin [place] [id number] RBC (Bld) [#/Vol] 5.27 10*6/uL Normal 4.14-5.80 [facility] ehensive Internal Medicine; [facility] Work Phone: Comment on above: PATIENT NOT FASTINGP ERFORMED BY: BN [facility] [address] [id number] BY: TONYA [facility] Anynaa9[address] RoadDublin [place] [id number] WBC (Bld) [#/Vol] 6.8 10*3/uL Normal 3.4-10.8 [facility] Internal [facility]; [facility] Work Phone: Comment on above: PATIENT NOT FASTINGP ERFORMED BY: BN [facility] [address] [id number] BY: TONYA [facility] Rlhkdl9626 [address] RoadDublin [place] [id number] LIPOPROTEIN, BLD, BY NMR (92 944)on 08-26-2018 Cholesterol mass conc 138 mg/dL Normal 100-199 [facility] prehensive Internal Medicine Work Phone: Comment on above: PATIENT NOT FASTINGP ERFORMED BY: BN [facility] Myxgkahh[address] [id number] BY: CB [facility] Hhsuib9726 [address] RoadDublin [place] [id number] Lipoprotein.alpha molar conc 33.2 umol/L Normal [facility] Work Phone: Comment on above: PATIENT NOT FASTINGP ERFORMED BY: LogicLadder[address] [id number] BY: Klypper70 [facility] [id number] Lipoprotein.beta.subpar ticle Entitic length 19.7 nm Abnormal Comprehensi Internal Medicine Work Phone: Comment on above: [...] were developed and their performance characteristicsdetermined by [employer]. These assays have not been cleared by [place] Food and Drug Administration. The clinical utility of theselaboratory values have not been fully established. PATIENT NOT FASTINGP ERFORMED BY: Acronis[address] [id number] BY: [employer]6370 [facility] [id number] Lipoprotein.beta.subpar ticle molar conc 789 nmol/L Normal [facility] Work Phone: Comment on above: Low < 1000 Moderate 1000 - 1299 Borderline-High 1300 - 1599 High 1600 - 2000 Very High > 2000 PATIENT NOT FASTINGP ERFORMED BY: BN [facility] He[address]odnju[address] [id number] BY: CB [facility] Vpqndg[address] Recite MeGood Hope Hospital [id number] Lipoprotein.beta.subpar ticle.small molar conc 622 nmol/L Abnormal Comprehen [facility] Internal Medicine Work Phone: Comment on above: PATIENT NOT FASTINGP ERFORMED BY: BN LabEffdonrp Dlebynpxrg[address] [id number] BY: CB [facility] Fzolmh[address] Recite MeGood Hope Hospital [id number] Triglyceride mass conc 170 mg/dL Abnormal 0-149 Co mprehensive Internal Medicine Work Phone: Comment on above: PATIENT NOT FASTINGP ERFORMED BY: [email or web address] LabEffdonrp [address]vnjgajxbz[address] [id number] BY: CB [facility] Xwmwux9009 [address] [facility] [id number] LIPOPROTEIN, BLD, BY NMR ([id number]) 55 mg/dL Normal 0-99 [facility] Work Phone: Comment on above: . Optimal < 100 Abov e optimal 100 - 129 Borderline 130 - 159 High 160 - 189 Very high > 189 .LDL-C is inaccurate if patient is non-fasting. PATIENT NOT FASTINGP ERFORMED BY: [email or web address] LabEffdonrp Iepcukzyyq19[address] [id number] BY: CB [facility] Bqnigk5354 [address] [facility] [id number] LIPOPROTEIN, BLD, BY NMR ([id number]) 49 mg/dL Normal [facility] Work Phone: Comment on above: PATIENT NOT FASTINGP ERFORMED BY: BN LabEffdonrp Vjdjhiakzn[address] [id number] BY: CB [facility] Bcozna7645 Haney RoadDublin [place] [id number] LIPOPROTEIN, BLD, BY NMR (70 319)Ordered By: Fish Hatchery Worker on 08-26-2018 LIPOPROTEIN, BLD, BY NMR ([id number]) 170 mg/dL Abnormal 0-149 [facility]; [facility] Work Phone: LIPOPROTEIN, BLD, BY NMR ([id number]) 138 mg/dL Normal 100-199 [facility]; [facility] Work Phone: METABOLIC PANEL, COMPREHENSI VE (17221)on 08-26-2018 Albumin mass conc 4.5 g/dL Normal 3.5-5.5 Compreh [facility] Internal Medicine Work Phone: Comment on above: PATIENT NOT FASTINGP ERFORMED BY: [facility] [address] [id number] BY: CB [facility] Zbgsao4856 [address]aney RoadDublin [place] [id number] Albumin/Globulin mass ratio 1.5 {ratio} Normal 1.2-2.2 [facility] Work Phone: Comment on above: PATIENT NOT FASTINGP ERFORMED BY: [facility] [address] [id number] BY: CB [facility] Jxgtjt3113 [address]aney RoadDublin [place] [id number] ALP enzyme act/vol 91 [iU]/L Normal 39-117 [facility] Work Phone: Comment on above: PATIENT NOT FASTINGP ERFORMED BY: BN [facility] [address] [id number] BY: CB [facility] Llreyq9071 [address]aney RoadDublin [place] [id number] ALT enzyme act/vol 27 [iU]/L Normal 0-44 [facility] Work Phone: Comment on above: PATIENT NOT FASTINGP ERFORMED BY: [facility] [address] [id number] BY: CB [facility] Iiqxun9116 [address] RoadDublin [place] [id number] AST enzyme act/vol 20 [iU]/L Normal 0-40 Compre hensive Internal Medicine Work Phone: Comment on above: PATIENT NOT FASTINGP ERFORMED BY: [facility] [address] [id number] BY: TONYA [facility] Wkqwxf2791 [address]aney RoadDublin [place] [id number] Bilirubin mass conc 0.3 mg/dL Normal 0.0-1.2 Compr ehensive Internal Medicine Work Phone: Comment on above: PATIENT NOT FASTINGP ERFORMED BY: LabCo[address] [id number] BY: [facility] Qqyhtl1897 [address]aney RoadDublin [place] [id number] Calcium mass conc 9.5 mg/dL Normal 8.7-10.2 Compreh ensive [facility] Medicine Work Phone: Comment on above: PATIENT NOT FASTINGP ERFORMED BY: Lab[address] [id number] BY: [facility] Werucg0599 [address]aney RoadDublin [place] [id number] Chloride molar conc 104 mmol/L Normal 96-106 Compr ehensive Internal Medicine Work Phone: Comment on above: PATIENT NOT FASTINGP ERFORMED BY: Lab[address] [id number] BY: [facility] Hsytvr2069 [address] RoadDublin [place] [id number] CO2 molar conc 23 mmol/L Normal 20-29 Comprehens arianna Internal Medicine Work Phone: Comment on above: PATIENT NOT FASTINGP ERFORMED BY: [facility] [address] [id number] BY: CB [facility] Bsmuji5410 [address] RoadDublin [place] [id number] Creatinine mass conc 0.83 mg/dL Normal 0.76-1.27 Comp rehensive Internal Medicine Work Phone: Comment on above: PATIENT NOT FASTINGP ERFORMED BY: BN [facility] Klypvjxuij7255 [facility] [id number] BY: CB [facility] Aacrsu8505 [address] RoadDublin [place] [id number] GFR/1.73 sq M predicted among blacks CKD-EPI vol rate/area (S/P/Bld) 112 mL/min/1.73 Normal Comprehe nsive Internal Medicine Work Phone: Comment on above: PATIENT NOT FASTINGP ERFORMED BY: BN [facility] [address] [id number] BY: [facility] Dsblzi8303 [address] RoadDuin [place] [id number] GFR/1.73 sq M predicted among non-blacks CKD-EPI vol rate/area (S/P/Bld) 97 mL/min/1.73 Normal [facility] Work Phone: Comment on above: PATIENT NOT FASTINGP ERFORMED BY: [facility] [address] [id number] BY: [facility] Iwakkz8724 [address] [facility] [place] [id number] Globulin mass conc (S) 3.1 g/dL Normal 1.5-4.5 Co mprehensive [facility] Medicine Work Phone: Comment on above: PATIENT NOT FASTINGP ERFORMED BY: [facility] [address] [id number] BY: [facility] Mraniw8173 [address] [facility] [place] [id number] Glucose mass conc 94 mg/dL Normal 65-99 Compreh ensive Internal Medicine Work Phone: Comment on above: PATIENT NOT FASTINGP ERFORMED BY: [facility] [address] [id number] BY: [facility] Dinjdf9[address] [facility] [place] [id number] Potassium molar conc 5.0 mmol/L Normal 3.5-5.2 Comp rehensive Internal Medicine Work Phone: Comment on above: PATIENT NOT FASTINGP ERFORMED BY: BN [facility] Cztxpwewvi6814 [facility] [id number] BY: CB [facility] Esdaag6547 [address] RoadDublin [place] [id number] Protein mass conc 7.6 g/dL Normal 6.0-8.5 Compreh ensive Internal Medicine Work Phone: Comment on above: PATIENT NOT FASTINGP ERFORMED BY: BN [facility] [address] [id number] BY: CB [facility] Qurslw7729 [address] RoadDublin [place] [id number] Sodium molar conc 143 mmol/L Normal 134-144 Compreh ensive Internal Medicine Work Phone: Comment on above: PATIENT NOT FASTINGP ERFORMED BY: BN [facility] [address] [id number] BY: CB [facility] Dcafkr1897 [address] RoadDublin [place] [id number] Urea nitrogen mass conc 11 mg/dL Normal 6-24 C omprehensive Internal Medicine Work Phone: Comment on above: PATIENT NOT FASTINGP ERFORMED BY: [facility] [address] [id number] BY: [facility] Bzqnsf7430 [address] RoadDublin [place] [id number] Urea nitrogen/Creatinine mass ratio 13 mg/mg Normal 9-20 [facility] Work Phone: Comment on above: PATIENT NOT FASTINGP ERFORMED BY: BN [facility] [address] [id number] BY: CB [facility] Dqnnlx7235 [address] RoadDublin [place] [id number] METABOLIC PANEL, COMPREHENSI VE ([id number])Ordered By: Fish Hatchery Worker on 08-26-2018 ALP [Catalytic activity/Vol] 91 U/L Normal 39-117 [facility]; [facility] Work Phone: Comment on above: PATIENT NOT FASTINGP ERFORMED BY: BN [facility] [address] [id number] BY: [facility] Yjpzel6739 [address] RoadDublin [place] [id number] ALT [Catalytic activity/Vol] 27 U/L Normal 0-44 [facility]; [facility] Work Phone: Comment on above: PATIENT NOT FASTINGP ERFORMED BY: [place] [address] [facility] [id number] BY: [facility] Ogcdxw7425 [address] [facility]blin [place] [id number] AST [Catalytic activity/Vol] 20 U/L Normal 0-40 [facility]; [facility] Work Phone: Comment on above: PATIENT NOT FASTINGP ERFORMED BY: Lab[address] [id number] BY: [facility] Prjsft3853 [facility] [id number] SED RATE ERYTHROCYTE ([id number]) on 08-26-2018 ESR Velocity (Bld) 6 mm/h Normal 0-30 Compre hensive Internal Medicine Work Phone: Comment on above: PATIENT NOT FASTINGP ERFORMED BY: Lab[address] [id number] BY: [facility] Shjgnb9907 [facility] [id number] T3, FREE (TRIDOTHYRONINE) (8 7890)on 08-26-2018 T3 free mass conc 3.5 pg/mL Normal 2.0-4.4 Compreh ensive Internal Medicine Work Phone: Comment on above: PATIENT NOT FASTINGP ERFORMED BY: [address] [id number] BY: [facility] SomersetOgubop3461 [facility] [id number] T4, FREE (THYROXINE) (56160) on 08-26-2018 T4 free mass conc 1.32 ng/dL Normal 0.82-1.77 Compreh ensive Internal Medicine Work Phone: Comment on above: PATIENT NOT FASTINGP ERFORMED BY: [facility] Kyrjvabnsv6822 [facility] [id number] BY: [facility] Rksnya8314 [address] RoadDublin [place] [id number] TSH (48339)on 08-26-2018 Thyrotropin Qn 2.990 {uIU/mL} Normal 0.450-4.50 0 [facility] Work Phone: Comment on above: PATIENT NOT FASTINGP ERFORMED BY: [facility] Uzghpatlhq1969 [facility] [id number] BY: [facility] Aonyyk1425 [address] RoadDublin [place] [id number] Troponin I ([id number])Ordered By : Fish Hatchery Worker on 08-26-2018 Troponin I.cardiac [Mass/Vol] ng/mL Normal 0.00-0.04 [facility]; [facility] Work Phone: Comment on above: PATIENT NOT FASTINGP ERFORMED BY: [facility] Uaapxxtkpe7527 [facility] [id number] BY: [facility] Jrtaup0486 [address] RoadDublin [place] [id number] Troponin I (00136)on 019 Troponin I.cardiac mass conc ng/mL Normal 0.00-0.04 [facility] Work Phone: Comment on above: PATIENT NOT FASTINGP ERFORMED BY: [facility] Jdlwheelox3394 [facility] [id number] BY: [facility] Yhvuvw5836 [address] RoadDublin [place] [id number] VITAMIN B-12 (CYANOCOBALAMIN ) (31813)on 08-26-2018 Cobalamin (Vitamin B12) mass conc 1397 pg/mL Abnormal 232-1245 [facility] Work Phone: Comment on above: PATIENT NOT FASTINGP ERFORMED BY: [facility] [address] [id number] BY: [facility] Irauhy1694 [address] RoadDublin [place] [id number] Gram stain for investigation of transfusion reaction Microscopic observation Gram stain Nom (Unsp spec) [facility] Work Phone: No Panel Information SARS-CoV-2 & FLU Antigen (Rapid) [facility] Work Phone: Vital Signs Date Time Vital Sign Value Performing Clinician Facility 05-06-2025 10:59-0400 Body height 182.[address] Jocelin Saunders DO Work Phone: [facility] 05-06-2025 10:59-0400 Body mass index (BMI) [Ratio] 33.5 kg/m2 Dr. Jocelin Saunders DO Work Phone: [facility] 05-06-2025 10:59-0400 Body temperature 97.8 [degF] Dr. Jocelin Saunders DO Work Phone: [facility] 05-06-2025 10:59-0400 Body weight 112.[address] Jocelin Saunders DO Work Phone: [facility] 05-06-2025 10:59-0400 Diastolic blood pressure 71 mm[Hg] Dr. Jocelin Saunders DO Work Phone: [facility] 05-06-2025 10:59-0400 Heart rate 62 /min Dr. Jocelin Saunders DO Work Phone: [facility] 05-06-2025 10:59-0400 Respiratory rate 16 /min Dr. Jocelin Saunders DO Work Phone: [facility] 05-06-2025 10:59-0400 SaO2% (BldA) [Mass fraction] 94 % Dr. Jocelin Saunders DO Work Phone: [facility] 05-06-2025 10:59-0400 Systolic blood pressure 135 mm[Hg] Dr. Jocelin Saunders DO Work Phone: [facility] 04-16-2025 08:34-0400 Body height 182.[address] Jocelin Saunders DO Work Phone: [facility] 04-16-2025 08:34-0400 Body mass index (BMI) [Ratio] 33.2 kg/m2 Dr. Jocelin Saunders DO Work Phone: [facility] 04-16-2025 08:34-0400 Body temperature 97.6 [degF] Dr. Jocelin Saunders DO Work Phone: [facility] 04-16-2025 08:34-0400 Body weight 111.[address] Jocelin Saunders DO Work Phone: [facility] 04-16-2025 08:34-0400 Diastolic blood pressure 77 mm[Hg] Dr. Jocelin Saunders DO Work Phone: [facility] 04-16-2025 08:34-0400 Heart rate 55 /min Dr. Jocelin Saunders DO Work Phone: [facility] 04-16-2025 08:34-0400 Respiratory rate 16 /min Dr. Jocelin Saunders DO Work Phone: [facility] 04-16-2025 08:34-0400 SaO2% (BldA) [Mass fraction] 96 % Dr. Jocelin Saunders DO Work Phone: [facility] 04-16-2025 08:34-0400 Systolic blood pressure 129 mm[Hg] Dr. Jocelin Saunders DO Work Phone: [facility] 02-04-2025 11:50-0400 Body height 182.[address] Jocelin Saunders DO Work Phone: [facility] 02-04-2025 11:50-0400 Body mass index (BMI) [Ratio] 33 kg/m2 Dr. Jocelin Saunders DO Work Phone: [facility] 02-04-2025 11:50-0400 Body temperature 98.5 [degF] Dr. Jocelin Saunders DO Work Phone: [facility] 02-04-2025 11:50-0400 Body weight 110.[address] Jocelin Saunders DO Work Phone: [facility] 02-04-2025 11:50-0400 Diastolic blood pressure 75 mm[Hg] Dr. Jocelin Saunders DO Work Phone: [facility] 02-04-2025 11:50-0400 Heart rate 55 /min Dr. Jocelin Saunders DO Work Phone: [facility] 02-04-2025 11:50-0400 Respiratory rate 16 /min Dr. Jocelin Saunders DO Work Phone: [facility] 02-04-2025 11:50-0400 SaO2% (BldA) [Mass fraction] 96 % Dr. Jocelin Saunders DO Work Phone: [facility] 02-04-2025 11:50-0400 Systolic blood pressure 131 mm[Hg] Dr. Jocelin Saunders DO Work Phone: [facility] 01-05-2025 08:19-0400 Body mass index (BMI) [Ratio] 32.6 kg/m2 Dr. Jocelin Saunders DO Work Phone: [facility] 01-05-2025 08:19-0400 Body temperature 97.7 [degF] Dr. Jocelin Saunders DO Work Phone: [facility] 01-05-2025 08:19-0400 Body weight 109.[address] Jocelin Saunders DO Work Phone: [facility] 01-05-2025 08:19-0400 Diastolic blood pressure 78 mm[Hg] Dr. Jocelin Saunders DO Work Phone: [facility] 01-05-2025 08:19-0400 Heart rate 58 /min Dr. Jocelin Saunders DO Work Phone: [facility] 01-05-2025 08:19-0400 Respiratory rate 20 /min Dr. Jocelin Saunders DO Work Phone: [facility] 01-05-2025 08:19-0400 SaO2% (BldA) [Mass fraction] 96 % Dr. Jocelin Saunders DO Work Phone: [facility] 01-05-2025 08:19-0400 Systolic blood pressure 157 mm[Hg] Dr. Jocelin Saunders DO Work Phone: [facility] 11-05-2024 11:42-0400 Body height 182.[address] Jocelin Saunders DO Work Phone: [facility] 11-05-2024 11:42-0400 Body mass index (BMI) [Ratio] 32.5 kg/m2 Dr. Jocelin Saunders DO Work Phone: [facility] 11-05-2024 11:42-0400 Body temperature 97.9 [degF] Dr. Jocelin Saunders DO Work Phone: [facility] 11-05-2024 11:42-0400 Body weight 109.[address] Jocelin Saunders DO Work Phone: [facility] 11-05-2024 11:42-0400 Diastolic blood pressure 74 mm[Hg] Dr. Jocelin Saunders DO Work Phone: [facility] 11-05-2024 11:42-0400 Heart rate 56 /min Dr. Jocelin Saunders DO Work Phone: [facility] 11-05-2024 11:42-0400 Respiratory rate 16 /min Dr. Jocelin Saunders DO Work Phone: [facility] 11-05-2024 11:42-0400 SaO2% (BldA) [Mass fraction] 95 % Dr. Jocelin Saunders DO Work Phone: [facility] 11-05-2024 11:42-0400 Systolic blood pressure 122 mm[Hg] Dr. Jocelin Saunders DO Work Phone: [facility] 07-28-2024 13:58-0500 Body mass index (BMI) [Ratio] 31.9 kg/m2 Shinal Maynard CASE FINISHER-[employer]AVELING PLANT OPERATOR Work Phone: [facility] 07-28-2024 13:58-0500 Body temperature 98.49 [degF] Shinal Maynard CASE FINISHER-[employer]AVELING PLANT OPERATOR Work Phone: [facility] 07-28-2024 13:58-0500 Body weight 106.82 kg Shinal Maynard CASE FINISHER-TR[employer]ELING PLANT OPERATOR Work Phone: [facility] 07-28-2024 13:58-0500 Diastolic blood pressure 66 mm[Hg] Shinal Maynard CASE FINISHER-TRAVELING PLANT OPERATOR Work Phone: [facility] 07-28-2024 13:58-0500 Heart rate 66 /min Shinal Maynard CASE FINISHER-TRAVELING PLANT OPERATOR Work Phone: [facility] 07-28-2024 13:58-0500 Respiratory rate 18 /min Shinal Maynard CASE FINISHER-TRAVELING PLANT OPERATOR Work Phone: [facility] 07-28-2024 13:58-0500 SaO2% (BldA) [Mass fraction] 99 % Shinal Maynard CASE FINISHER-TRAVELING PLANT OPERATOR Work Phone: [facility] 07-28-2024 13:58-0500 Systolic blood pressure 138 mm[Hg] Shinal Maynard CASE FINISHER-[employer]ELING PLANT OPERATOR Work Phone: [facility] 08-06-2023 09:50-0500 Body height 182.[address] Jocelin Saunders Work Phone: [facility] 08-06-2023 09:48-0500 Body mass index (BMI) [Ratio] 32.9 kg/m2 Dr. Jocelin Saunders Work Phone: [facility] 08-06-2023 09:48-0500 Body temperature 97.9 [degF] Dr. Jocelin Saunders Work Phone: [facility] 08-06-2023 09:48-0500 Body weight 110.[address] Jocelin Saunders Work Phone: [facility] 08-06-2023 09:48-0500 Diastolic blood pressure 78 mm[Hg] Dr. Jocelin Saunders Work Phone: [facility] 08-06-2023 09:48-0500 Heart rate 59 /min Dr. Jocelin Saunders Work Phone: [facility] 08-06-2023 09:48-0500 Respiratory rate 18 /min Dr. Jocelin Saunders Work Phone: [facility] 08-06-2023 09:48-0500 SaO2% (BldA) [Mass fraction] 96 % Dr. Jocelin Saunders Work Phone: [facility] 08-06-2023 09:48-0500 Systolic blood pressure 133 mm[Hg] Dr. Jocelin Saunders Work Phone: [facility] 07-30-2023 13:00-0500 Body mass index (BMI) [Ratio] 32.85 kg/m2 Katelyn Lawton MD Work Phone: [facility] 07-30-2023 13:00-0500 Body temperature 97.81 [degF] Katelyn Lawton MD Work Phone: [facility] 07-30-2023 13:00-0500 Body weight 110 kg Katelyn Lawton MD Work Phone: [facility] 07-30-2023 13:00-0500 Diastolic blood pressure 78 mm[Hg] Katelyn Lawton MD Work Phone: [facility] 07-30-2023 13:00-0500 Heart rate 63 /min Katelyn Lawton MD Work Phone: [facility] 07-30-2023 13:00-0500 Respiratory rate 18 /min Katelyn Lawton MD Work Phone: [facility] 07-30-2023 13:00-0500 SaO2% (BldA) [Mass fraction] 95 % Katelyn Lawton MD Work Phone: [facility] 07-30-2023 13:00-0500 Systolic blood pressure 146 mm[Hg] Katelyn Lawton MD Work Phone: [facility] 05-06-2023 11:38-0400 Body height 182.[address] Jocelin Saunders Work Phone: [facility] 05-06-2023 11:38-0400 Body mass index (BMI) [Ratio] 32.5 kg/m2 Dr. Jocelin Saunders Work Phone: [facility] 05-06-2023 11:38-0400 Body temperature 99.3 [degF] Dr. Jocelin Saunders Work Phone: [facility] 05-06-2023 11:38-0400 Body weight 109.[address] Jocelin Saunders Work Phone: [facility] 05-06-2023 11:38-0400 Diastolic blood pressure 73 mm[Hg] Dr. Jocelin Saunders Work Phone: [facility] 05-06-2023 11:38-0400 Heart rate 63 /min Dr. Jocelin Saunders Work Phone: [facility] 05-06-2023 11:38-0400 Respiratory rate 16 /min Dr. Jocelin Saunders Work Phone: [facility] 05-06-2023 11:38-0400 SaO2% (BldA) [Mass fraction] 96 % Dr. Jocelin Saunders Work Phone: [facility] 05-06-2023 11:38-0400 Systolic blood pressure 120 mm[Hg] Dr. Jocelin Saunders Work Phone: [facility] 05-03-2023 12:33-0400 Body weight 108.[address] Jocelin Saunders Work Phone: [facility] 05-03-2023 12:33-0400 Diastolic blood pressure 75 mm[Hg] Dr. Jocelin Saunders Work Phone: [facility] 05-03-2023 12:33-0400 Heart rate 62 /min Dr. Jocelin Saunders Work Phone: [facility] 05-03-2023 12:33-0400 Respiratory rate 16 /min Dr. Jocelin Saunders Work Phone: [facility] 05-03-2023 12:33-0400 SaO2% (BldA) [Mass fraction] 96 % Dr. Jocelin Saunders Work Phone: [facility] 05-03-2023 12:33-0400 Systolic blood pressure 136 mm[Hg] Dr. Jocelin Saunders Work Phone: [facility] 04-03-2023 08:32-0400 Body height 182.88 cm Terese Kyle [facility]; [facility] Work Phone: 04-03-2023 08:32-0400 Body mass index (BMI) [Ratio] 32.69 kg/m2 Terese Sweet LPN [facility]; [facility] Work Phone: 04-03-2023 08:32-0400 Body surface area Derived from formula 2.31 m2 Terese Sweet LPN [facility]; [facility] Work Phone: 04-03-2023 08:32-0400 Body temperature 98.1 [degF] Terese Sweet LPN [facility]; [facility] Work Phone: 04-03-2023 08:32-0400 Body weight 109.32 kg Terese Sweet LPN [facility]; [facility] Work Phone: 04-03-2023 08:32-0400 Diastolic blood pressure 60 mm[Hg] Terese Kyle [facility]; [facility] Work Phone: 04-03-2023 08:32-0400 Heart rate 59 /min [facility]; [facility] Work Phone: 04-03-2023 08:32-0400 Respiratory rate 16 /min [facility]; [facility] Work Phone: 04-03-2023 08:32-0400 SaO2% (BldA) [Mass fraction] 97 % Terese [facility]; [facility] Work Phone: 04-03-2023 08:32-0400 Systolic blood pressure 112 mm[Hg] Terese [facility]; [facility] Work Phone: 01-30-2023 09:03-0400 Body height 182.88 cm [facility]; [facility] Work Phone: 01-30-2023 09:03-0400 Body mass index (BMI) [Ratio] 32.43 kg/m2 [facility]; [facility] Work Phone: 01-30-2023 09:03-0400 Body surface area Derived from formula 2.3 m2 [facility]; [facility] Work Phone: 01-30-2023 09:03-0400 Body temperature 98 [degF] [facility]; [facility] Work Phone: 01-30-2023 09:03-0400 Body weight 108.47 kg [facility]; [facility] Work Phone: 01-30-2023 09:03-0400 Diastolic blood pressure 70 mm[Hg] [facility]; [facility] Work Phone: 01-30-2023 09:03-0400 Heart rate 65 /min [facility]; [facility] Work Phone: 01-30-2023 09:03-0400 Respiratory rate 16 /min [facility]; [facility] Work Phone: 01-30-2023 09:03-0400 SaO2% (BldA) [Mass fraction] 95 % [facility]; [facility] Work Phone: 01-30-2023 09:03-0400 Systolic blood pressure 122 mm[Hg] [facility]; [facility] Work Phone: 12-31-2022 09:14-0400 Body height 182.88 cm [facility]; [facility] Work Phone: 12-31-2022 09:14-0400 Body mass index (BMI) [Ratio] 32.55 kg/m2 [facility]; [facility] Work Phone: 12-31-2022 09:14-0400 Body surface area Derived from formula 2.3 m2 [facility]; [facility] Work Phone: 12-31-2022 09:14-0400 Body temperature 97 [degF] [facility]; [facility] Work Phone: 12-31-2022 09:14-0400 Body weight 108.86 kg [facility]; [facility] Work Phone: 12-31-2022 09:14-0400 Diastolic blood pressure 70 mm[Hg] [facility]; [facility] Work Phone: 12-31-2022 09:14-0400 Heart rate 55 /min [facility]; [facility] Work Phone: 12-31-2022 09:14-0400 SaO2% (BldA) [Mass fraction] 96 % [facility] [facility]; [facility] Work Phone: 12-31-2022 09:14-0400 Systolic blood pressure 122 mm[Hg] Víctor Barton [employer] [facility]; [facility] Work Phone: 10-22-2022 07:42-0400 Body height 182.[address] Jocelin Saunders Work Phone: [facility] 10-22-2022 07:42-0400 Body mass index (BMI) [Ratio] 31.8 kg/m2 Dr. Jocelin Saunders Work Phone: [facility] 10-22-2022 07:42-0400 Body temperature 97.4 [degF] Dr. Jocelin Saunders Work Phone: [facility] 10-22-2022 07:42-0400 Body weight 106.[address] Jocelin Saunders Work Phone: [facility] 10-22-2022 07:42-0400 Diastolic blood pressure 83 mm[Hg] Dr. Jocelin Saunders Work Phone: [facility] 10-22-2022 07:42-0400 Heart rate 65 /min Dr. Jocelin Saunders Work Phone: [facility] 10-22-2022 07:42-0400 Respiratory rate 18 /min Dr. Jocelin Saunders Work Phone: [facility] 10-22-2022 07:42-0400 SaO2% (BldA) [Mass fraction] 96 % Dr. Jocelin Saunders Work Phone: [facility] 10-22-2022 07:42-0400 Systolic blood pressure 134 mm[Hg] Dr. Jocelin Saunders Work Phone: [facility] 10-18-2022 08:50-0400 Body temperature 98.3 [degF] Dr. Jocelin Saunders Work Phone: [facility] 10-18-2022 08:50-0400 Diastolic blood pressure 81 mm[Hg] Dr. Jocelin Saunders Work Phone: [facility] 10-18-2022 08:50-0400 Heart rate 62 /min Dr. Jocelin Saunders Work Phone: [facility] 10-18-2022 08:50-0400 Respiratory rate 17 /min Dr. Jocelin Saunders Work Phone: [facility] 10-18-2022 08:50-0400 SaO2% (BldA) [Mass fraction] 96 % Dr. Jocelin Saunders Work Phone: [facility] 10-18-2022 08:50-0400 Systolic blood pressure 130 mm[Hg] Dr. Jocelin Saunders Work Phone: [facility] 10-05-2022 12:50-0400 Body height 182.[address] Jocelin Saunders Work Phone: [facility] 10-05-2022 12:50-0400 Body mass index (BMI) [Ratio] 31.5 kg/m2 Dr. Jocelin Saunders Work Phone: [facility] 10-05-2022 12:50-0400 Diastolic blood pressure 69 mm[Hg] Dr. Jocelin Saunders Work Phone: [facility] 10-05-2022 12:50-0400 Systolic blood pressure 114 mm[Hg] Dr. Jocelin Saunders Work Phone: [facility] 10-05-2022 10:21-0400 Body temperature 98.4 [degF] Dr. Jocelin Saunders Work Phone: [facility] 10-05-2022 10:21-0400 Body weight 105.[address] Jocelin Saunders Work Phone: [facility] 10-05-2022 10:21-0400 Heart rate 62 /min Dr. Jocelin Saunders Work Phone: [facility] 10-05-2022 10:21-0400 Respiratory rate 15 /min Dr. Jocelin Saunders Work Phone: [facility] 10-05-2022 10:21-0400 SaO2% (BldA) [Mass fraction] 95 % Dr. Jocelin Saunders Work Phone: [facility] 10-04-2022 10:44-0400 Body mass index (BMI) [Ratio] 31.9 kg/m2 Dr. Jocelin Saunders Work Phone: [facility] 10-04-2022 10:44-0400 Body temperature 98.7 [degF] Dr. Jocelin Saunders Work Phone: [facility] 10-04-2022 10:44-0400 Body weight 106.[address] Jocelin Saunders Work Phone: [facility] 10-04-2022 10:44-0400 Diastolic blood pressure 78 mm[Hg] Dr. Jocelin Saunders Work Phone: [facility] 10-04-2022 10:44-0400 Heart rate 64 /min Dr. Jocelin Saunders Work Phone: [facility] 10-04-2022 10:44-0400 Respiratory rate 16 /min Dr. Jocelin Saunders Work Phone: [facility] 10-04-2022 10:44-0400 SaO2% (BldA) [Mass fraction] 97 % Dr. Jocelin Saunders Work Phone: [facility] 10-04-2022 10:44-0400 Systolic blood pressure 123 mm[Hg] Dr. Jocelin Saunders Work Phone: [facility] 09-27-2022 08:04-0500 Body height 182.88 cm [...] 31.6 kg/m2 Dr. Jocelin Saunders Work Phone: [facility] 09-20-2022 13:53-0500 Body temperature 98.9 [degF] Dr. Jocelin Saunders Work Phone: [facility] 09-20-2022 13:53-0500 Body weight 105.[address] Jocelin Saunders Work Phone: [facility] 09-20-2022 13:53-0500 Diastolic blood pressure 75 mm[Hg] Dr. Jocelin Saunders Work Phone: [facility] 09-20-2022 13:53-0500 Heart rate 72 /min Dr. Jocelin Saunders Work Phone: [facility] 09-20-2022 13:53-0500 Respiratory rate 18 /min Dr. Jocelin Saunders Work Phone: [facility] 09-20-2022 13:53-0500 SaO2% (BldA) [Mass fraction] 95 % Dr. Jocelin Saunders Work Phone: [facility] 09-20-2022 13:53-0500 Systolic blood pressure 123 mm[Hg] Dr. Jocelin Saunders Work Phone: [facility] 09-06-2022 10:49-0500 Body height 182.[address] Jocelin Saunders Work Phone: [facility] 09-06-2022 10:49-0500 Body mass index (BMI) [Ratio] 31.6 kg/m2 Dr. Jocelin Saunders Work Phone: [facility] 09-06-2022 10:49-0500 Body temperature 98.3 [degF] Dr. Jocelin Saunders Work Phone: [facility] 09-06-2022 10:49-0500 Body weight 105.[address] Jocelin Saunders Work Phone: [facility] 09-06-2022 10:49-0500 Diastolic blood pressure 80 mm[Hg] Dr. Jocelin Saunders Work Phone: [facility] 09-06-2022 10:49-0500 Heart rate 68 /min Dr. Jocelin Saunders Work Phone: [facility] 09-06-2022 10:49-0500 Respiratory rate 16 /min Dr. Jocelin Saunders Work Phone: [facility] 09-06-2022 10:49-0500 SaO2% (BldA) [Mass fraction] 95 % Dr. Jocelin Saunders Work Phone: [facility] 09-06-2022 10:49-0500 Systolic blood pressure 121 mm[Hg] Dr. Jocelin Saunders Work Phone: [facility] 08-30-2022 12:56-0500 Body mass index (BMI) [Ratio] 31.7 kg/m2 Dr. Jocelin Saunders Work Phone: [facility] 08-30-2022 12:56-0500 Body temperature 98.7 [degF] Dr. Jocelin Saunders Work Phone: [facility] 08-30-2022 12:56-0500 Body weight 106.[address] Jocelin Saunders Work Phone: [facility] 08-30-2022 12:56-0500 Diastolic blood pressure 76 mm[Hg] Dr. Jocelin Saunders Work Phone: [facility] 08-30-2022 12:56-0500 Heart rate 70 /min Dr. Jocelin Saunders Work Phone: [facility] 08-30-2022 12:56-0500 Respiratory rate 18 /min Dr. Jocelin Saunders Work Phone: [facility] 08-30-2022 12:56-0500 SaO2% (BldA) [Mass fraction] 94 % Dr. Jocelin Saunders Work Phone: [facility] 08-30-2022 12:56-0500 Systolic blood pressure 129 mm[Hg] Dr. Jocelin Saunders Work Phone: [facility] 08-23-2022 10:47-0500 Body height 182.[address] Jocelin Saunders Work Phone: [facility] 08-23-2022 10:47-0500 Body mass index (BMI) [Ratio] 31.3 kg/m2 Dr. Jocelin Saunders Work Phone: [facility] 08-23-2022 10:47-0500 Body temperature 97.8 [degF] Dr. Jocelin Saunders Work Phone: [facility] 08-23-2022 10:47-0500 Body weight 104.[address] Jocelin Saunders Work Phone: [facility] 08-23-2022 10:47-0500 Diastolic blood pressure 78 mm[Hg] Dr. Jocelin Saunders Work Phone: [facility] 08-23-2022 10:47-0500 Heart rate 65 /min Dr. Jocelin Saunders Work Phone: [facility] 08-23-2022 10:47-0500 Respiratory rate 16 /min Dr. Jocelin Saunders Work Phone: [facility] 08-23-2022 10:47-0500 SaO2% (BldA) [Mass fraction] 96 % Dr. Jocelin Saunders Work Phone: [facility] 08-23-2022 10:47-0500 Systolic blood pressure 129 mm[Hg] Dr. Jocelin Saunders Work Phone: [facility] 08-20-2022 06:58-0500 Body height 182.[address] Jocelin Saunders Work Phone: [facility] 08-20-2022 06:58-0500 Body mass index (BMI) [Ratio] 31 kg/m2 Dr. Jocelin Saunders Work Phone: [facility] 08-20-2022 06:58-0500 Body temperature 97.5 [degF] Dr. Jocelin Saunders Work Phone: [facility] 08-20-2022 06:58-0500 Body weight 103.[address] Jocelin Saunders Work Phone: [facility] 08-20-2022 06:58-0500 Diastolic blood pressure 81 mm[Hg] Dr. Jocelin Saunders Work Phone: [facility] 08-20-2022 06:58-0500 Heart rate 70 /min Dr. Jocelin Saunders Work Phone: [facility] 08-20-2022 06:58-0500 Respiratory rate 18 /min Dr. Jocelin Saunders Work Phone: [facility] 08-20-2022 06:58-0500 SaO2% (BldA) [Mass fraction] 95 % Dr. Jocelin Saunders Work Phone: [facility] 08-20-2022 06:58-0500 Systolic blood pressure 138 mm[Hg] Dr. Jocelin Saunders Work Phone: [facility] 08-16-2022 13:07-0500 Body height 182.[address] Jocelin Saunders Work Phone: [facility] 08-16-2022 13:07-0500 Body mass index (BMI) [Ratio] 31.1 kg/m2 Dr. Jocelin Saunders Work Phone: [facility] 08-16-2022 13:07-0500 Body temperature 98.6 [degF] Dr. Jocelin Saunders Work Phone: [facility] 08-16-2022 13:07-0500 Body weight 104.[address] Jocelin Saunders Work Phone: [facility] 08-16-2022 13:07-0500 Diastolic blood pressure 77 mm[Hg] Dr. Jocelin Saunders Work Phone: [facility] 08-16-2022 13:07-0500 Heart rate 69 /min Dr. Jocelin Saunders Work Phone: [facility] 08-16-2022 13:07-0500 Respiratory rate 16 /min Dr. Jocelin Saunders Work Phone: [facility] 08-16-2022 13:07-0500 SaO2% (BldA) [Mass fraction] 96 % Dr. Jocelin Saunders Work Phone: [facility] 08-16-2022 13:07-0500 Systolic blood pressure 132 mm[Hg] Dr. Jocelin Saunders Work Phone: [facility] 08-09-2022 14:47-0500 Body mass index (BMI) [Ratio] 31.6 kg/m2 Dr. Jocelin Saunders Work Phone: [facility] 08-09-2022 14:47-0500 Body temperature 98.1 [degF] Dr. Jocelin Saunders Work Phone: [facility] 08-09-2022 14:47-0500 Body weight 105.[address] Jocelin Saunders Work Phone: [facility] 08-09-2022 14:47-0500 Diastolic blood pressure 84 mm[Hg] Dr. Jocelin Saunders Work Phone: [facility] 08-09-2022 14:47-0500 Heart rate 72 /min Dr. Jocelin Saunders Work Phone: [facility] 08-09-2022 14:47-0500 Respiratory rate 16 /min Dr. Jocelin Saunders Work Phone: [facility] 08-09-2022 14:47-0500 SaO2% (BldA) [Mass fraction] 93 % Dr. Jocelin Saunders Work Phone: [facility] 08-09-2022 14:47-0500 Systolic blood pressure 167 mm[Hg] Dr. Jocelin Saunders Work Phone: [facility] 08-09-2022 08:15-0500 Body weight 106.[address] Jocelin Saunders Work Phone: [facility] 08-09-2022 08:15-0500 Heart rate 66 /min Dr. Jocelin Saunders Work Phone: [facility] 08-09-2022 08:15-0500 SaO2% (BldA) [Mass fraction] 95 % Dr. Jocelin Saunders Work Phone: [facility] 08-08-2022 14:19-0500 Body mass index (BMI) [Ratio] 31.8 kg/m2 Dr. Jocelin Saunders Work Phone: [facility] 08-08-2022 14:19-0500 Body temperature 98.4 [degF] Dr. Jocelin Saunders Work Phone: [facility] 08-08-2022 14:19-0500 Body weight 106.[address] Jocelin Saunders Work Phone: [facility] 08-08-2022 14:19-0500 Diastolic blood pressure 90 mm[Hg] Dr. Jocelin Saunders Work Phone: [facility] 08-08-2022 14:19-0500 Heart rate 61 /min Dr. Jocelin Saunders Work Phone: [facility] 08-08-2022 14:19-0500 Respiratory rate 18 /min Dr. Jocelin Saunders Work Phone: [facility] 08-08-2022 14:19-0500 SaO2% (BldA) [Mass fraction] 95 % Dr. Jocelin Saunders Work Phone: [facility] 08-08-2022 14:19-0500 Systolic blood pressure 158 mm[Hg] Dr. Jocelin Saunders Work Phone: [facility] 07-09-2022 08:12-0500 Body mass index (BMI) [Ratio] 31.9 kg/m2 Dr. Jocelin Saunders Work Phone: [facility] 07-09-2022 08:12-0500 Body temperature 97.5 [degF] Dr. Jocelin Saunders Work Phone: [facility] 07-09-2022 08:12-0500 Body weight 106.[address] Jocelin Saunders Work Phone: [facility] 07-09-2022 08:12-0500 Diastolic blood pressure 74 mm[Hg] Dr. Jocelin Saunders Work Phone: [facility] 07-09-2022 08:12-0500 Heart rate 72 /min Dr. Jocelin Saunders Work Phone: [facility] 07-09-2022 08:12-0500 Respiratory rate 20 /min Dr. Jocelin Saunders Work Phone: [facility] 07-09-2022 08:12-0500 SaO2% (BldA) [Mass fraction] 93 % Dr. Jocelin Saunders Work Phone: [facility] 07-09-2022 08:12-0500 Systolic blood pressure 128 mm[Hg] Dr. Jocelin Saunders Work Phone: [facility] 07-04-2022 11:35-0500 Body mass index (BMI) [Ratio] 32.2 kg/m2 Dr. Jocelin Saunders Work Phone: [facility] 07-04-2022 11:35-0500 Body temperature 99 [degF] Dr. Jocelin Saunders Work Phone: [facility] 07-04-2022 11:35-0500 Body weight 107.[address] Jocelin Saunders Work Phone: [facility] 07-04-2022 11:35-0500 Diastolic blood pressure 66 mm[Hg] Dr. Jocelin Saunders Work Phone: [facility] 07-04-2022 11:35-0500 Heart rate 69 /min Dr. Jocelin Saunders Work Phone: [facility] 07-04-2022 11:35-0500 Respiratory rate 22 /min Dr. Jocelin Saunders Work Phone: [facility] 07-04-2022 11:35-0500 SaO2% (BldA) [Mass fraction] 94 % Dr. Jocelin Saunders Work Phone: [facility] 07-04-2022 11:35-0500 Systolic blood pressure 152 mm[Hg] Dr. Jocelin Saunders Work Phone: [facility] 06-28-2022 09:54-0500 Body height 182.88 cm Juanito Wells [facility]; [facility] Work Phone: 06-28-2022 09:54-0500 Body mass index (BMI) [Ratio] 32.19 kg/m2 [facility]; [facility] Work Phone: 06-28-2022 09:54-0500 Body surface area Derived from formula 2.29 m2 Juanito Wells [facility]; [facility] Work Phone: 06-28-2022 09:54-0500 Body temperature 98.4 [degF] Juanito Wells [facility]; [facility] Work Phone: 06-28-2022 09:54-0500 Body weight 107.67 kg Juanito Wells [facility]; [facility] Work Phone: 06-28-2022 09:54-0500 Diastolic blood pressure 68 mm[Hg] [facility]; [facility] Work Phone: 06-28-2022 09:54-0500 Heart rate 68 /min Juanito Wells [facility]; [facility] Work Phone: 06-28-2022 09:54-0500 Respiratory rate 18 /min [facility]; [facility] Work Phone: 06-28-2022 09:54-0500 SaO2% (BldA) [Mass fraction] 94 % tonya [facility]; [facility] Work Phone: 06-28-2022 09:54-0500 Systolic blood pressure 114 mm[Hg] [facility]; [facility] Work Phone: 06-11-2022 13:04-0500 Body mass index (BMI) [Ratio] 32 kg/m2 Dr. Jocelin Saunders Work Phone: [facility] 06-11-2022 13:04-0500 Body temperature 97.8 [degF] Dr. Jocelin Saunders Work Phone: [facility] 06-11-2022 13:04-0500 Body weight 107.[address] Jocelin Saunders Work Phone: [facility] 06-11-2022 13:04-0500 Diastolic blood pressure 83 mm[Hg] Dr. Jocelin Saunders Work Phone: [facility] 06-11-2022 13:04-0500 Heart rate 83 /min Dr. Jocelin Saunders Work Phone: [facility] 06-11-2022 13:04-0500 Respiratory rate 16 /min Dr. Jocelin Saunders Work Phone: [facility] 06-11-2022 13:04-0500 SaO2% (BldA) [Mass fraction] 93 % Dr. Jocelin Saunders Work Phone: [facility] 06-11-2022 13:04-0500 Systolic blood pressure 137 mm[Hg] Dr. Jocelin Saunders Work Phone: [facility] 06-06-2022 08:46-0500 Body height 182.88 cm Eufemia Patel [facility]; [facility] Work Phone: 06-06-2022 08:46-0500 Body mass index (BMI) [Ratio] 32.01 kg/m2 Eufemia Patel [facility]; [facility] Work Phone: 06-06-2022 08:46-0500 Body surface area Derived from formula 2.29 m2 Eufemia Patel [facility]; [facility] Work Phone: 06-06-2022 08:46-0500 Body temperature 97.3 [degF] Eufemia Patel [facility]; [facility] Work Phone: 06-06-2022 08:46-0500 Body weight 107.05 kg Eufemia Patel [facility]; [facility] Work Phone: 06-06-2022 08:46-0500 Diastolic blood pressure 80 mm[Hg] Eufemia Patel [facility]; [facility] Work Phone: 06-06-2022 08:46-0500 Heart rate 90 /min Eufemia Patel [facility]; [facility] Work Phone: 06-06-2022 08:46-0500 Respiratory rate 16 /min Eufemia Patel [facility]; [facility] Work Phone: 06-06-2022 08:46-0500 SaO2% (BldA) [Mass fraction] 95 % Eufemia Patel [facility]; [facility] Work Phone: 06-06-2022 08:46-0500 Systolic blood pressure 120 mm[Hg] Eufemia Patel [facility]; [facility] Work Phone: 06-04-2022 15:19-0500 Diastolic blood pressure 84 mm[Hg] Dr. Jocelin Saunders Work Phone: [facility] 06-04-2022 15:19-0500 Heart rate 84 /min Dr. Jocelin Saunders Work Phone: [facility] 06-04-2022 15:19-0500 Respiratory rate 17 /min Dr. Jocelin Saunders Work Phone: [facility] 06-04-2022 15:19-0500 SaO2% (BldA) [Mass fraction] 95 % Dr. Jocelin Saunders Work Phone: [facility] 06-04-2022 15:19-0500 Systolic blood pressure 136 mm[Hg] Dr. Jocelin Saunders Work Phone: [facility] 06-04-2022 12:56-0500 Inhaled oxygen flow rate 2 L/min Dr. Jocelin Saunders Work Phone: [facility] 06-04-2022 10:34-0500 Body temperature 98.6 [degF] Dr. Jocelin Saunders Work Phone: [facility] 06-04-2022 08:45-0500 Body height 182.[address] Jocelin Saunders Work Phone: [facility] Work Phone: 06-04-2022 08:45-0500 Body mass index (BMI) [Ratio] 32.5 kg/m2 Dr. Jocelin Saunders Work Phone: [facility] 06-04-2022 08:45-0500 Body weight 108.[address] Jocelin Saunders Work Phone: [facility] 06-03-2022 11:43-0500 Body temperature 97.8 [degF] Dr. Jocelin Saunders Work Phone: [facility] 06-03-2022 11:43-0500 Diastolic blood pressure 78 mm[Hg] Dr. Jocelin Saunders Work Phone: [facility] 06-03-2022 11:43-0500 Heart rate 66 /min Dr. Jocelin Saunders Work Phone: [facility] 06-03-2022 11:43-0500 Respiratory rate 18 /min Dr. Jocelin Saunders Work Phone: [facility] 06-03-2022 11:43-0500 SaO2% (BldA) [Mass fraction] 99 % Dr. Jocelin Saunders Work Phone: [facility] 06-03-2022 11:43-0500 Systolic blood pressure 134 mm[Hg] Dr. Jocelin Saunders Work Phone: [facility] 06-03-2022 07:50-0500 Body height 182.[address] Jocelin Saunders Work Phone: [facility] Work Phone: 06-03-2022 07:50-0500 Body mass index (BMI) [Ratio] 32.1 kg/m2 Dr. Jocelin Saunders Work Phone: [facility] 06-03-2022 07:50-0500 Body weight 107.[address] Jocelin Saunders Work Phone: [facility] 04-04-2022 10:41-0400 Body mass index (BMI) [Ratio] 32.1 kg/m2 Dr. Jocelin Saunders Work Phone: [facility] Work Phone: 04-04-2022 10:41-0400 Body temperature 98.5 [degF] Dr. Jocelin Saunders Work Phone: [facility] Work Phone: 04-04-2022 10:41-0400 Body weight 107.[address] Jocelin Saunders Work Phone: [facility] Work Phone: 04-04-2022 10:41-0400 Diastolic blood pressure 78 mm[Hg] Dr. Jocelin Saunders Work Phone: [facility] Work Phone: 04-04-2022 10:41-0400 Heart rate 63 /min Dr. Jocelin Saunders Work Phone: [facility] Work Phone: 04-04-2022 10:41-0400 Respiratory rate 18 /min Dr. Jocelin Saunders Work Phone: [facility] Work Phone: 04-04-2022 10:41-0400 SaO2% (BldA) [Mass fraction] 96 % Dr. Jocelin Saunders Work Phone: [facility] Work Phone: 04-04-2022 10:41-0400 Systolic blood pressure 134 mm[Hg] Dr. Jocelin Saunders Work Phone: [facility] Work Phone: 03-05-2022 08:15-0400 Body height 182.88 cm Eufemia Patel CMA [facility]; [facility] Work Phone: 03-05-2022 08:15-0400 Body mass index (BMI) [Ratio] 32.96 kg/m2 Eufemia Patle CMA [facility]; [facility] Work Phone: 03-05-2022 08:15-0400 Body surface area Derived from formula 2.31 m2 Eufemia Patel CMA [facility]; [facility] Work Phone: 03-05-2022 08:15-0400 Body temperature 97.3 [degF] Eufemia Patel CMA [facility]; [facility] Work Phone: Comment on above: Method: Infrared 03-05-2022 08:15-0400 Body weight 110.22 kg Eufemia Patel CMA [facility]; [facility] Work Phone: 03-05-2022 08:15-0400 Diastolic blood pressure 64 mm[Hg] Eufemia Patel CMA [facility]; [facility] Work Phone: Comment on above: Patient Position: Sitting; Cuff Location : Left Arm; Cuff Size: Standard 03-05-2022 08:15-0400 Heart rate 67 /min Eufemia Patel [employer] [facility]; [facility] Work Phone: Comment on above: Pattern: Regular 03-05-2022 08:15-0400 Respiratory rate 18 /min Eufemia Patel CMA [facility]; [facility] Work Phone: Comment on above: Pattern: Unlabored 03-05-2022 08:15-0400 SaO2% (BldA) [Mass fraction] 95 % Eufemia Patel [facility]; [facility] Work Phone: Comment on above: Room air 03-05-2022 08:15-0400 Systolic blood pressure 118 mm[Hg] Eufemia Patel [employer] [facility]; [facility] Work Phone: Comment on above: Patient Position: Sitting; Cuff Location : Left Arm; Cuff Size: Standard 02-09-2022 09:43-0400 Diastolic blood pressure 83 mm[Hg] Dr. Jocelin Saunders Work Phone: [facility] Work Phone: 02-09-2022 09:43-0400 Systolic blood pressure 132 mm[Hg] Dr. Jocelin Saunders Work Phone: [facility] Work Phone: 02-09-2022 08:20-0400 Body mass index (BMI) [Ratio] 32.6 kg/m2 Dr. Jocelin Saunders Work Phone: [facility] Work Phone: 02-09-2022 08:20-0400 Body weight 109.[address] Jocelin Saunders Work Phone: [facility] Work Phone: 02-09-2022 08:20-0400 Heart rate 66 /min Dr. Jocelin Saunders Work Phone: [facility] Work Phone: 02-09-2022 08:20-0400 Respiratory rate 16 /min Dr. Jocelin Saunders Work Phone: [facility] Work Phone: 02-09-2022 08:20-0400 SaO2% (BldA) [Mass fraction] 96 % Dr. Jocelin Saunders Work Phone: [facility] Work Phone: 10-30-2021 10:15-0400 Body height 182.88 cm [facility]; [facility] Work Phone: 10-30-2021 10:15-0400 Body mass index (BMI) [Ratio] 32.41 kg/m2 [facility]; [facility] Work Phone: 10-30-2021 10:15-0400 Body surface area Derived from formula 2.3 m2 Eufemia Patel CMA [facility]; [facility] Work Phone: 10-30-2021 10:15-0400 Body temperature 97.3 [degF] Eufemia Patel CMA [facility]; [facility] Work Phone: Comment on above: Method: Infrared 10-30-2021 10:15-0400 Body weight 108.41 kg Eufemia Patel CMA [facility]; [facility] Work Phone: 10-30-2021 10:15-0400 Diastolic blood pressure 70 mm[Hg] Eufemia Patel CMA [facility]; [facility] Work Phone: Comment on above: Patient Position: Sitting; Cuff Location : Left Arm; Cuff Size: Standard 10-30-2021 10:15-0400 Heart rate 64 /min Eufemia Patel CMA [facility]; [facility] Work Phone: Comment on above: Pattern: Regular 10-30-2021 10:15-0400 Respiratory rate 18 /min Eufemia Patel CMA [facility]; [facility] Work Phone: Comment on above: Pattern: Unlabored 10-30-2021 10:15-0400 SaO2% (BldA) [Mass fraction] 97 % Eufemia Patel [employer] [facility]; [facility] Medicine Work Phone: Comment on above: Room air 10-30-2021 10:15-0400 Systolic blood pressure 118 mm[Hg] Eufemia Patel CMA [facility]; [facility] Work Phone: Comment on above: Patient Position: Sitting; Cuff Location : Left Arm; Cuff Size: Standard 10-30-2021 09:32-0400 Body height 182.88 cm Eufemia Patel [employer] [facility]; [facility] Work Phone: 10-30-2021 09:32-0400 Body mass index (BMI) [Ratio] 32.69 kg/m2 Eufemia Patel [employer] [facility]; [facility] Work Phone: 10-30-2021 09:32-0400 Body surface area Derived from formula 2.31 m2 Eufemia Patel [facility]; [facility] Work Phone: 10-30-2021 09:32-0400 Body weight 109.32 kg Eufemia Patel [facility]; [facility] Work Phone: 06-26-2021 09:08-0500 Body height 182.88 cm Letty Slarb [employer] [facility]; [facility] Work Phone: 06-26-2021 09:08-0500 Body mass index (BMI) [Ratio] 32.69 kg/m2 Letty Slarb [employer] [facility]; [facility] Work Phone: 06-26-2021 09:08-0500 Body surface area Derived from formula 2.31 m2 Letty Slarb [employer] [facility]; [facility] Work Phone: 06-26-2021 09:08-0500 Body temperature 97.3 [degF] Letty Slarb [employer] [facility]; [facility] Work Phone: 06-26-2021 09:08-0500 Body weight 109.32 kg Letty Slarb [employer] [facility]; [facility] Work Phone: 06-26-2021 09:08-0500 Diastolic blood pressure 78 mm[Hg] Letty Slarb [employer] [facility]; [facility] Work Phone: Comment on above: Patient Position: Sitting; Cuff Location : Left Arm; Cuff Size: Standard 06-26-2021 09:08-0500 Heart rate 74 /min Letty Slarb [employer] [facility]; [facility] Work Phone: Comment on above: Pattern: Regular 06-26-2021 09:08-0500 Respiratory rate 16 /min Letty Slarb [employer] [facility]; [facility] Work Phone: Comment on above: Pattern: Unlabored 06-26-2021 09:08-0500 SaO2% (BldA) [Mass fraction] 97 % Letty Slarb [employer] [facility]; [facility] Work Phone: Comment on above: Room air 06-26-2021 09:08-0500 Systolic blood pressure 122 mm[Hg] Letty Bolton [facility]; [facility] Work Phone: Comment on above: Patient Position: Sitting; Cuff Location : Left Arm; Cuff Size: Standard 12-21-2020 07:48-0400 Body height 182.88 cm [facility]; [facility] Work Phone: 12-21-2020 07:48-0400 Body mass index (BMI) [Ratio] 31.6 kg/m2 [facility]; [facility] Work Phone: 12-21-2020 07:48-0400 Body surface area Derived from formula 2.27 m2 [facility]; [facility] Work Phone: 12-21-2020 07:48-0400 Body temperature 96.9 [degF] [facility]; [facility] Work Phone: Comment on above: Method: Thermal Scan 12-21-2020 07:48-0400 Body weight 105.69 kg [facility]; [facility] Work Phone: 12-21-2020 07:48-0400 Diastolic blood pressure 70 mm[Hg] [facility]; [facility] Work Phone: Comment on above: Patient Position: Sitting; Cuff Location : Left Arm; Cuff Size: Standard 12-21-2020 07:48-0400 Heart rate 71 /min [facility]; [facility] Work Phone: Comment on above: Pattern: Regular 12-21-2020 07:48-0400 Respiratory rate 16 /min [facility]; [facility] Work Phone: Comment on above: Pattern: Unlabored 12-21-2020 07:48-0400 SaO2% (BldA) [Mass fraction] 98 % Polina Cross [employer] [facility]; [facility] Work Phone: Comment on above: Room air 12-21-2020 07:48-0400 Systolic blood pressure 122 mm[Hg] Polinajulio cesar Bhat [facility]; [facility] Work Phone: Comment on above: Patient Position: Sitting; Cuff Location : Left Arm; Cuff Size: Standard 08-25-2020 12:56-0500 Body mass index (BMI) [Ratio] 31.3 kg/m2 Dr. Jocelin Saunders Work Phone: [facility] 08-25-2020 12:56-0500 Body temperature 98.7 [degF] Dr. Jocelin Saunders Work Phone: [facility] 08-25-2020 12:56-0500 Body weight 104.[address] Jocelin Saunders Work Phone: [facility] 08-25-2020 12:56-0500 Diastolic blood pressure 87 mm[Hg] Dr. Jocelin Saunders Work Phone: [facility] 08-25-2020 12:56-0500 Heart rate 68 /min Dr. Jocelin Saunders Work Phone: [facility] 08-25-2020 12:56-0500 Respiratory rate 17 /min Dr. Jocelin Saunders Work Phone: [facility] 08-25-2020 12:56-0500 SaO2% (BldA) [Mass fraction] 95 % Dr. Jocelin Saunders Work Phone: [facility] 08-25-2020 12:56-0500 Systolic blood pressure 135 mm[Hg] Dr. Jocelin Saunders Work Phone: [facility] 05-02-2020 09:31-0400 BMI (Body Mass Index) 33.09 kg/m2 [facility] Work Phone: 05-02-2020 09:31-0400 Body weight 110.68 kg [facility] Work Phone: 05-02-2020 09:31-0400 BSA (Body Surface Area) 2.32 m2 [facility] Work Phone: 05-02-2020 09:31-0400 Height 182.88 cm [facility] Work Phone: 04-25-2020 10:29-0400 BMI (Body Mass Index) 33.09 kg/m2 Eufeima Patel [facility] Work Phone: 04-25-2020 10:29-0400 Body Temperature 96.9 [degF] Eufemia Patel [facility] Comprehensiv e Internal Medicine Work Phone: Comment on above: Method: Infrared 04-25-2020 10:29-0400 Body weight 110.68 kg Eufemia Patel [facility] Work Phone: 04-25-2020 10:29-0400 BP Diastolic 90 mm[Hg] Eufemia Patel [facility] Work Phone: Comment on above: Patient Position: Sitting; Cuff Location : Left Arm; Cuff Size: Standard 04-25-2020 10:29-0400 BP Systolic 123 mm[Hg] Eufemia Patel [facility] Work Phone: Comment on above: Patient Position: Sitting; Cuff Location : Left Arm; Cuff Size: Standard 04-25-2020 10:29-0400 BSA (Body Surface Area) 2.32 m2 Eufemia Patel [facility] Work Phone: 04-25-2020 10:29-0400 Height 182.88 cm Eufemia Patel [facility] Work Phone: 04-25-2020 10:29-0400 Pulse (Heart Rate) 80 /min Eufemia Patel [employer] Comprehens [facility] Work Phone: Comment on above: Pattern: Regular 04-25-2020 10:29-0400 Pulse Oximetry 97 % Jocelin Saunders [facility] Medicine Work Phone: Comment on above: Room air 04-25-2020 10:29-0400 Respiratory Rate 16 /min Eufemia Patel CMA Com[facility] Work Phone: Comment on above: Pattern: Unlabored 04-25-2020 10:29-0400 SaO2% (BldA) [Mass fraction] 97 % Eufemia Patel [employer] [facility]; [facility] Work Phone: Comment on above: Room air 02-01-2020 13:18-0400 BMI (Body Mass Index) 32.55 kg/m2 Eufemia Patel [employer] [facility] Work Phone: 02-01-2020 13:18-0400 Body Temperature 97.6 [degF] Eufemia Patel CMA [facility] Work Phone: Comment on above: Method: Temporal 02-01-2020 13:18-0400 Body weight 108.86 kg Eufemia Patel [employer] [facility] Work Phone: 02-01-2020 13:18-0400 BP Diastolic 80 mm[Hg] Eufemia Patel [facility] Work Phone: Comment on above: Patient Position: Sitting; Cuff Location : Left Arm; Cuff Size: Standard 02-01-2020 13:18-0400 BP Systolic 100 mm[Hg] Eufemia Patel [facility] Work Phone: Comment on above: Patient Position: Sitting; Cuff Location : Left Arm; Cuff Size: Standard 02-01-2020 13:18-0400 BSA (Body Surface Area) 2.3 m2 Eufemia Patel [facility] Work Phone: 02-01-2020 13:18-0400 Height 182.88 cm Eufemia Patel [facility] Work Phone: 02-01-2020 13:18-0400 Pulse (Heart Rate) 115 /min Eufemia Patel CMA Comprehens [facility] Work Phone: Comment on above: Pattern: Regular 02-01-2020 13:18-0400 Pulse Oximetry 97 % Jocelin Saunders [facility] Work Phone: Comment on above: Room air 02-01-2020 13:18-0400 Respiratory Rate 16 /min Eufemia Patel [facility] Comprehens[facility] e [facility] Medicine Work Phone: Comment on above: Pattern: Unlabored 02-01-2020 13:18-0400 SaO2% (BldA) [Mass fraction] 97 % Eufemia Patel [facility]; [facility] Work Phone: Comment on above: Room air 01-11-2020 14:19-0400 BMI (Body Mass Index) 33.77 kg/m2 Eufemia Patel [facility] Work Phone: Comment on above: no vs taken as this is phone encounter d ue to covid 01-11-2020 14:19-0400 Body weight 112.95 kg Eufemia Patel [facility] Work Phone: Comment on above: no vs taken as this is phone encounter d ue to covid 01-11-2020 14:19-0400 BSA (Body Surface Area) 2.34 m2 Eufemia Patel [facility] Work Phone: Comment on above: no vs taken as this is phone encounter d ue to covid 01-11-2020 14:19-0400 Height 182.88 cm Eufemia Patel [facility] Work Phone: Comment on [...] BSA (Body Surface Area) 2.34 m2 Alba Orourke RN [facility] Work [...] (Heart Rate) 68 /min Talia Nguyen RN [facility] Internal Medicine Work Phone: [...] (Body Mass Index) 30.72 kg/m2 Eufemia Patel [facility] Work Phone: 01-12-2019 11:11-0400 Body Temperature 97.2 [degF] Eufemia Patel [facility] Com[facility] e [facility] Medicine Work Phone: Comment on above: Method: Temporal 01-12-2019 11:11-0400 Body weight 102.74 kg Eufemia Patel [facility] Work Phone: 01-12-2019 11:11-0400 BP Diastolic 78 mm[Hg] Eufemia Patel [facility] Work Phone: Comment on above: Patient Position: Sitting; Cuff Location : Left Arm; Cuff Size: Standard 01-12-2019 11:11-0400 BP Systolic 106 mm[Hg] Eufemia Patel [facility] Work Phone: Comment on above: Patient Position: Sitting; Cuff Location : Left Arm; Cuff Size: Standard 01-12-2019 11:11-0400 BSA (Body Surface Area) 2.25 m2 Eufemia Patel [facility] Work Phone: 01-12-2019 11:11-0400 Height 182.88 cm Eufemia Patel [facility] Work Phone: 01-12-2019 11:11-0400 Pulse (Heart Rate) 77 /min Eufemia Patel [facility] Comprehens [facility] Internal Medicine Work Phone: Comment on above: Pattern: Regular 01-12-2019 11:11-0400 Pulse Oximetry 96 % Jocelin Saunders [facility] Work Phone: Comment on above: Room air 01-12-2019 11:11-0400 Respiratory Rate 18 /min Eufemia Patel CMA Com[facility] Work Phone: Comment on above: Pattern: Unlabored 01-12-2019 11:11-0400 SaO2% (BldA) [Mass fraction] 96 % Eufemia Patel [facility]; [facility] Work Phone: Comment on above: Room air 01-12-2019 11:11-0400 Weight 102.74 kg Jocelin Saunders [facility] Work Phone: 12-22-2018 10:43-0400 BMI (Body Mass Index) 30.45 kg/m2 Eufemia Patel [facility] Work Phone: 12-22-2018 10:43-0400 Body Temperature 96.2 [degF] Eufemia Patel CMA [facility] Work Phone: Comment on above: Method: Temporal 12-22-2018 10:43-0400 Body weight 101.83 kg Eufemia Patel [facility] Work Phone: 12-22-2018 10:43-0400 BP Diastolic 82 mm[Hg] Eufemia Patel [facility] Work Phone: Comment on above: Patient Position: Sitting; Cuff Location : Left Arm; Cuff Size: Standard 12-22-2018 10:43-0400 BP Systolic 116 mm[Hg] Eufemia Patel [facility] Work Phone: Comment on above: Patient Position: Sitting; Cuff Location : Left Arm; Cuff Size: Standard 12-22-2018 10:43-0400 BSA (Body Surface Area) 2.24 m2 Eufemia Patel [facility] Work Phone: 12-22-2018 10:43-0400 Height 182.88 cm Eufemia Patel [facility] Work Phone: 12-22-2018 10:43-0400 Pulse (Heart Rate) 74 /min Eufemia Patel [employer] Com[facility] Work Phone: Comment on above: Pattern: Regular 12-22-2018 10:43-0400 Pulse Oximetry 95 % Jocelin Saunders [facility] Work Phone: Comment on above: Room air 12-22-2018 10:43-0400 Respiratory Rate 18 /min Eufemia Patel CMA Com[facility] Work Phone: Comment on above: Pattern: Unlabored 12-22-2018 10:43-0400 SaO2% (BldA) [Mass fraction] 95 % Eufemia Patel [employer] [facility]; [facility] Work [...] [facility] Work Phone: 10-31-2018 08:07-0400 BP Diastolic 82 mm[Hg] Vinod Wyman LPN [facility] Work Phone: Comment on above: Patient Position: Sitting; Cuff Location : Left Arm; Cuff Size: Standard 10-31-2018 08:07-0400 BP Systolic 118 mm[Hg] Vinod Wyman LPN [facility] Work Phone: Comment on above: Patient Position: Sitting; Cuff Location : Left Arm; Cuff Size: Standard 10-31-2018 08:07-0400 BSA (Body Surface Area) 2.3 m2 Vinod Wyman LPN [facility] Work Phone: 10-31-2018 08:07-0400 Height 182.88 cm Vinod Wyman LPN [facility] Internal Medicine Work Phone: 10-31-2018 08:07-0400 Pulse (Heart Rate) 92 /min Vinod Wyman LPN Comprehensreed e [facility] Medicine Work Phone: Comment on above: Pattern: Regular 10-31-2018 08:07-0400 Pulse Oximetry 95 % Jocelin Saunders [facility] Medicine Work Phone: Comment on above: Room air 10-31-2018 08:07-0400 Respiratory Rate 16 /min Vinod Wyman LPN [facility] Work Phone: Comment on above: Pattern: Unlabored 10-31-2018 08:07-0400 SaO2% (BldA) [Mass fraction] 95 % Vinod Wyman LPN [facility]; [facility] Work Phone: Comment on above: Room air 10-31-2018 08:07-0400 Weight 108.47 kg Jocelin Saunders [facility] Work Phone: 10-28-2018 08:25-0400 BMI (Body Mass Index) 32.43 kg/m2 Vinod Wyman LPN [facility] Work Phone: 10-28-2018 08:25-0400 Body Temperature 97.6 [degF] Vinod Wyman LPN [facility] Medicine Work Phone: Comment on above: Method: Temporal 10-28-2018 08:25-0400 Body weight 108.47 kg Vinod Wyman LPN [facility] Work Phone: 10-28-2018 08:25-0400 BP Diastolic 78 mm[Hg] Vinod Wyman LPN [facility] Medicine Work Phone: Comment on above: Patient Position: Sitting; Cuff Location : Left Arm; Cuff Size: Standard 10-28-2018 08:25-0400 BP Systolic 138 mm[Hg] Vinod Wyman LPN [facility] Work Phone: Comment on above: Patient Position: Sitting; Cuff Location : Left Arm; Cuff Size: Standard 10-28-2018 08:25-0400 BSA (Body Surface Area) 2.3 m2 Vinod Wyman LPN [facility] Medicine Work Phone: 10-28-2018 08:25-0400 Height 182.88 cm Vinod Wyman LPN [facility] Medicine Work Phone: 10-28-2018 08:25-0400 Pulse (Heart Rate) 103 /min Vinod Wyman LPN Com[facility] Work Phone: Comment on above: Pattern: Regular 10-28-2018 08:25-0400 Pulse Oximetry 94 % Jocelin Saunders [facility] Work Phone: Comment on above: Room air 10-28-2018 08:25-0400 Respiratory Rate 16 /min Vinod Wyman LPN [facility] Work Phone: Comment on above: Pattern: Unlabored 10-28-2018 08:25-0400 SaO2% (BldA) [Mass fraction] 94 % Vinod Wyman LPN [facility]; [facility] Work Phone: Comment on above: Room air 10-28-2018 08:25-0400 Weight 108.47 kg Jocelin Saunders [facility] Work Phone: 09-11-2018 08:45-0500 BMI (Body Mass Index) 32.43 kg/m2 Vinod Wyman LPN [facility] Work Phone: 09-11-2018 08:45-0500 Body weight 108.47 kg Vinod Wyman LPN [facility] Work Phone: 09-11-2018 08:45-0500 BP Diastolic 82 mm[Hg] Vinod Wyman LPN [facility] Work Phone: Comment on above: Patient Position: Sitting; Cuff Location : Left Arm; Cuff Size: Standard 09-11-2018 08:45-0500 BP Systolic 130 mm[Hg] Vinod Wyman LPN [facility] Work Phone: Comment on above: Patient Position: Sitting; Cuff Location : Left Arm; Cuff Size: Standard 09-11-2018 08:45-0500 BSA (Body Surface Area) 2.3 m2 Vinod Wyman LPN [facility] Work Phone: 09-11-2018 08:45-0500 Height 182.88 cm Vinod Wyman LPN [facility] Work Phone: 09-11-2018 08:45-0500 Pulse (Heart Rate) 86 /min Vinod Wyman LPN [facility] Work Phone: Comment on above: Pattern: Regular 09-11-2018 08:45-0500 Pulse Oximetry 96 % Jocelin Saunders [facility] Work Phone: Comment on above: Room air 09-11-2018 08:45-0500 Respiratory Rate 19 /min Vinod Wyman LPN [facility] Work Phone: Comment on above: Pattern: Unlabored 09-11-2018 08:45-0500 SaO2% (BldA) [Mass fraction] 96 % Vinod Wyman LPN [facility]; [facility] Work Phone: Comment on above: Room air 09-11-2018 08:45-0500 Weight 108.47 kg Jocelin Saunders [facility] Work Phone: 08-26-2018 08:41-0500 BMI [...] Rate) 76 /min Talia Nguyen RN Comprehens [facility] Internal Medicine Work Phone: Comment on above: Pattern: Regular 08-26-2018 08:41-0500 Pulse Oximetry 96 % Jocelin Cabreraon [facility] Work Phone: Comment on above: Room air 08-26-2018 08:41-0500 Respiratory Rate 18 /min Talia Nguyen RN Com[facility] e [facility] Work Phone: Comment on above: Pattern: Unlabored 08-26-2018 08:41-0500 SaO2% (BldA) [Mass fraction] 96 % Talia Nguyen RN [facility]; [facility] Work Phone: Comment on above: Room air 08-26-2018 08:41-0500 Weight 108.47 kg Jocelin Saunders [facility] Work Phone: Encounters Encounter Date Encounter Type Care Provider Facility Start: 06-18-2025 ambulatory Jocelin Saunders Facilit y:[facility] Start: 06-02-2025 Encounter for other preprocedural examination Jhonatan Mona [facility] Start: 05-26-2025 ambulatory Jocelin Saunders Facilit y:[facility] Start: 05-20-2025 End: 05-20-2025 ambulatory Jocelin Saunders Facility:[facility] Start: 05-11-2025 ambulatory Jocelin Saunders Facilit y:[facility] Start: 05-11-2025 End: 05-11-2025 ambulatory Jocelin Saunders Facility:[facility] Start: 05-06-2025 End: 05-06-[address] Sawyer Delgado MD -[facility] Work Phone: Start: 05-06-2025 End: 05-06-[address] Jocelin Saunders DO Work Phone: -[facility] Start: 04-26-[address] Tania Deglado MD -[facility] Start: 04-26-2025 ambulatory Jocelin Saunders Facilit y:[facility] Start: 04-16-2025 End: 04-16-[address] Hector Hsu MD -[facility] Work Phone: Start: 04-16-2025 End: 04-16-[address] Jocelin Saunders DO Work Phone: -[facility] Start: 02-04-2025 End: 02-04-2025 Patient encounter procedure Savi Rodriguez NP- -[facility] Work Phone: Start: 02-04-2025 End: 02-04-[address] Jocelin Saunders DO Work Phone: [facility] Start: 01-21-[address] Tania Deglado MD -[facility] Start: 01-05-2025 End: 01-05-2025 Patient encounter procedure RADHA Gunter -[facility] Work Phone: Start: 01-05-2025 End: 01-05-[address] Jocelin Saunders DO Work Phone: [facility] Work Phone: Start: 11-05-2024 End: 11-05-[address] Sawyer Delgado MD -[facility] Work Phone: Start: 11-05-2024 End: 11-05-2024 ambulatory Jocelin Saunders Facility:[facility] Start: 10-22-[address] Tania Delgado MD -[facility] Start: 10-07-2024 End: 10-07-2024 ambulatory Maxine Lopez RN Oncology Nurse Christiane vicente Start: 08-03-2024 End: 08-03-2024 ambulatory Jocelin Saunders Facility:[facility] Start: 07-28-2024 End: 07-28-2024 Office outpatient visit 25 minutes Katelyn Lawton MD Work Phone: [facility] Comment on above: CML (chronic myeloid leukemia) (Primary Dx) Start: 07-28-2024 ambulatory JOCELIN Amezcua ity:[facility] Start: 06-29-2024 End: 06-29-2024 ambulatory Jocelin Saunders Facility:[facility] Start: 10-23-[address] Darek Saunders Work Phone: [facility] Start: 10-21-2023 End: 10-21-[address] Jocelin Saunders Work Phone: [facility] Work Phone: Start: 10-21-2023 End: 10-21-[address] Jocelin Saunders Work Phone: [facility], [facility] Work Phone: Start: 08-06-2023 End: 08-06-[address] Jocelin Saunders Work Phone: [facility] Work Phone: Start: 07-30-2023 End: 07-30-2023 Subsequent hospital visit by physician Katelyn Lawton MD Work Phone: Department of Radiology Comment on above: Arrived Start: 07-30-2023 End: 07-30-2023 Office outpatient visit 25 minutes Katelyn Lawton MD Work Phone: [facility] Comment on above: CML (chronic myeloid leukemia) (Primary Dx); Acute midline low back pain with bilateral sciatica; Lumbar radiculopathy Start: 06-05-2023 End: 06-05-[address] Jocelin Saunders Work Phone: [facility] Work Phone: Start: 06-05-2023 End: 06-05-[address] Jocelin Saunders Work Phone: [facility]-Cat Scan, [facility] Work Phone: Start: 05-06-2023 End: 05-06-[address] Jocelin Saunders Work Phone: [facility] Work Phone: Start: 05-03-2023 End: 05-03-[address] Jocelin Saunders Work Phone: [facility] Work Phone: Start: 04-22-[address] Darek Saunders Work Phone: [facility] Start: 04-03-2023 End: 04-03-2023 Office outpatient [...] [facility] Start: 10-18-[address] Darek Saunders Work Phone: [facility] Start: 10-18-2022 End: 10-18-[address] Jocelin Saunders Work Phone: [facility] Start: 10-18-2022 Non-patient / Non-visit Dr. Mio Saunders Work Phone: [facility] Start: 10-17-2022 End: 10-17-[address] Jocelin Saunders Work Phone: [facility] Work Phone: Start: 10-17-2022 End: 10-17-[address] Jocelin Saunders Work Phone: [facility] Start: 10-05-2022 End: 10-05-[address] Jocelin Saunders Work Phone: [facility] Work Phone: Start: 10-05-2022 End: 10-05-[address] Jocelin Saunders Work Phone: [facility] Start: 10-04-[address] Darek Saunders Work Phone: [facility] Start: 10-04-2022 End: 10-04-2022 Non-patient / Non-visit Dr. Jocelin Saunders Work Phone: [facility] Start: 10-04-2022 End: 10-04-[address] Jocelin Saunders Work Phone: [facility] Start: 09-27-2022 ambulatory Jocelin Saunders DO Comp [facility] Start: 09-27-2022 End: 09-28-2022 Office outpatient visit 15 minutes Jocelin Saunders DO Work Phone: [facility] Start: 09-27-2022 Jocelin borja DO Work Phone: [facility] Start: 09-20-2022 End: 09-20-[address] Jocelin Saunders Work Phone: [facility] Start: 09-06-[address] Darek Saunders Work Phone: [facility] Start: 09-06-2022 End: 09-06-[address] Jocelin Saunders Work Phone: [facility] Start: 09-05-2022 Non-patient / Non-visit Dr. Mio Saunders Work Phone: [facility] Start: 08-30-2022 End: 08-30-2022 Non-patient / Non-visit Dr. Jocelin Saunders Work Phone: [facility] Start: 08-30-2022 End: 08-30-[address] Jocelin Saunders Work Phone: [facility] Work Phone: Start: 08-30-2022 End: 08-30-[address] Jocelin Saunders Work Phone: [facility] Start: 08-23-[address] Darek Saunders Work Phone: [facility] Start: 08-23-2022 End: 08-23-[address] Jocelin Saunders Work Phone: [facility] Start: 08-20-2022 End: 08-20-[address] [facility] Start: 08-16-2022 End: 08-16-2022 Non-patient / Non-visit Dr. Jocelin Saunders Work Phone: [facility] Start: 08-16-2022 End: 08-16-[address] Jocelin Saunders Work Phone: [facility] Work Phone: Start: 08-16-2022 End: 08-16-[address] Jocelin Saunders Work Phone: [facility] Start: 08-16-[address] Darek Saunders Work Phone: [facility] Start: 08-16-2022 End: 08-16-[address] Jocelin Saunders Work Phone: [facility] Start: 08-15-2022 End: 08-15-2022 Jocelin Saunders DO Work Phone: [facility] Start: 08-09-2022 End: 08-09-[address] Jocelin Saunders Work Phone: [facility] Start: 08-09-2022 Non-patient / Non-visit Dr. Mio Saunders Work Phone: [facility] Start: 08-09-2022 End: 08-09-[address] Jocelin Saunders Work Phone: [facility] Work Phone: Start: 08-09-2022 End: 08-09-[address] Jocelin Saunders Work Phone: [facility] Start: 08-08-2022 End: 08-08-2022 Non-patient / Non-visit Dr. Jocelin Saunders Work Phone: [facility] Start: 08-08-2022 End: 08-08-[address] Jocelin Saunders Work Phone: [facility] Work Phone: Start: 08-08-2022 End: 08-08-[address] Jocelin [facility]unders [facility] Start: 08-08-2022 End: 08-08-[address] Jocelin Saunders Work Phone: [facility] Start: 08-06-2022 Non-patient / Non-visit Dr. Mio Saunders Work Phone: [facility] Start: 08-06-2022 End: 08-06-[address] Jocelin Saunders Work Phone: [facility] Work Phone: Start: 08-06-2022 End: 08-06-[address] Jocelin [facility]unders [facility] Start: 07-09-2022 End: 07-09-[address] Jocelin Saunders [facility] Phone[facility] Start: 07-04-2022 End: 07-04-[address] Jocelin Saunders Work Phone: [facility] Start: 07-03-2022 End: 07-03-[address] Jocelin Saunders Work Phone: [facility] Start: 06-28-2022 End: 06-28-2022 Office outpatient visit 25 minutes Jocelin Saunders DO Work Phone: [facility] Start: 06-11-2022 End: 06-11-[address] Jocelin Saunders Work Phone: [facility] Start: 06-06-2022 End: 06-06-2022 Office outpatient visit 15 minutes Jocelin Saunders DO Work Phone: [facility] Start: 06-05-2022 End: 06-05-2022 Emergency department patient visit JADA SHETTY [facility] Start: 06-04-2022 End: 06-04-2022 Emergency department patient visit Dr. Jocelin Saunders Work Phone: [facility] Start: 06-03-2022 End: 06-03-2022 Emergency department patient visit Dr. Jocelin Saunders Work Phone: [facility] Start: 04-04-2022 End: 04-04-[address] Jocelin Saunders Work Phone: [facility] Start: 03-22-[address] Darek Saunders Work Phone: [facility] Start: 03-05-2022 End: 03-05-2022 Office outpatient visit 25 minutes Jocelin Saunders DO Work Phone: [facility] Start: 03-05-2022 Review Jocelin Fearo n DO Work Phone: [facility] Start: 02-09-2022 End: 02-09-[address] Jocelin Saunders Work Phone: [facility] Start: 10-30-2021 End: 10-30-2021 Office outpatient visit 25 minutes Jocelin Puja DO Work Phone: [facility] Start: 06-26-2021 End: 06-26-2021 Office outpatient visit 25 minutes Jocelin Puja DO Work Phone: [facility] Start: 12-21-2020 End: 12-21-2020 Office outpatient visit 25 minutes Jocelin Puja DO Work Phone: [facility] Start: 12-21-2020 Review Jocelin Tapia n DO Work Phone: [facility] Start: 05-02-2020 End: 05-02-2020 Office outpatient visit 15 minutes Jocelin Saunders [facility] Start: 05-02-2020 Review Jocelin Puja Compreh ensive Internal Medicine Start: 04-25-2020 End: 04-25-2020 Office outpatient visit 40 minutes Jocelin Puja [facility] Start: 03-02-2020 End: 03-02-2020 Phone Encounter Jocelin Saunders [facility] Start: 03-02-2020 End: 03-02-2020 Jocelin Puja DO Work Phone: [facility] Start: 02-22-2020 End: 02-29-2020 Phone Encounter Jocelin Saunders [facility] Start: 02-22-2020 Review Jocelin Puja Compreh ensive Internal Medicine Start: 02-22-2020 End: 02-29-2020 Jocelin Puja DO Work Phone: [facility] Start: 02-16-2020 End: 02-17-2020 Phone Encounter Jocelin Saunders [facility] Start: 02-16-2020 Review Jocelin Puja Compreh ensive Internal Medicine Start: 02-16-2020 End: 02-17-2020 Jocelin Puja DO Work Phone: [facility] Start: 02-11-2020 End: 02-11-2020 Phone Encounter Jocelin Saunders [facility] Start: 02-11-2020 End: 02-11-2020 Jocelin Cabreraon DO Work Phone: [facility] Start: 02-08-2020 End: 02-08-2020 Lab Order Jocelin Saunders [facility] Start: 02-08-2020 End: 02-08-2020 Jocelin Cabreraon DO Work Phone: [facility] Start: 02-05-2020 End: 02-05-2020 Lab Order Jocelin Saunders [facility] Start: 02-05-2020 End: 02-05-2020 Jocelinteddy Cabreraon DO Work Phone: [facility] Start: 02-05-2020 End: 02-05-2020 Annotation/Addendum Jocelin Saunders [facility] Start: 02-05-2020 End: 02-05-2020 Jocelin Cabreraon DO Work Phone: [facility] Start: 02-05-2020 End: 02-05-2020 Phone Encounter Jocelin Saunders [facility] Start: 02-05-2020 End: 02-05-2020 Jocelin Cabreraon DO Work Phone: [facility] Start: 02-05-2020 End: 02-05-2020 Phone Encounter Jocelin Saunders [facility] Start: 02-05-2020 End: 02-05-2020 Jocelin Cabreraon DO Work Phone: [facility] Start: 02-04-2020 End: 02-04-2020 Phone Encounter Jocelin Saunders [facility] Start: 02-04-2020 End: 02-04-2020 Jocelin Puja DO Work Phone: [facility] Start: 02-01-2020 End: 02-01-2020 Office outpatient visit 15 minutes Jocelin Puja [facility] Start: 01-29-2020 End: 01-29-2020 Annotation/Addendum Jocelin Cabreraon [facility] Start: 01-29-2020 End: 01-29-2020 Jocelin Puja DO Work Phone: [facility] [...] encounter status Dr. Samanta Saunders Work Phone: [facility] Start: 09-02-2018 End: 09-02-2018 Annotation/Addendum Jocelin Saunders [facility] Start: 09-02-2018 End: 09-02-2018 Jocelin Saunders DO Work Phone: [facility] Start: 08-26-2018 End: 08-26-2018 Annotation/Addendum Jocelin Saunders [facility] Start: 08-26-2018 End: 08-26-2018 Jocelin Saunders DO Work Phone: [facility] Start: 08-26-2018 End: 08-26-2018 Office outpatient new 60 minutes Jocelin Saunders [facility] Start: 08-02-2018 Patient encounter procedure JANNETH Wisdom (CORPORATE TRAVEL MANAGER-C) [facility] Patient encounter procedure Víctor Barton ROUGHER HELPER [facility]; [facility] Work Phone: Preoperative state Jocelin Lopes [facility] Internal Medicine Work Phone: Comment on above: dr thompson Preoperative state Jocelin Lopes [facility] Internal Medicine Work Phone: Comment on above: dr thompson Preoperative state Jocelin Lopes [facility] Internal Medicine Work Phone: Comment on above: dr thompson Preoperative state Jocelin Lopes [facility] Internal Medicine Work Phone: Comment on above: dr thompson Preoperative state Jocelin Lopes [facility] Internal Medicine Work Phone: Comment on above: dr thompson Preoperative state Jocelin Puja Lopes [facility] Internal Medicine Work Phone: Comment on above: dr thompson End: 04-13-2019 Preoperative state Talia Nguyen RN [facility]; [facility] Work Phone: Comment on above: dr thompson Procedures Date Procedure Procedure Detail Performing Clinician Start: 04-22-[address] Darek Saunders DO Work Phone: Start: 04-22-[address] Jocelin Saunders DO Work Phone: Comment on above: Test Ordered: [id number] BCR-ABL1, CML/ALL, PCR, Cqukya25e3 (b2a2) transcript <0.0032 % LUU Reference Range: .e14a2 (b3a2) transcript <0.0032 % LUU Reference Range: .e1a2 transcript <0.0032 % LUU Reference Range: .Interpretation: Negative LUU Reference Range: .NEGATIVE for the BCR-ABL1 e1a2 (p190), e13a2 (b2a2, p210)and e14a2 (b3a2, p210) fusion transcripts. These results donot rule out the presence of rare BCR-ABL1 transcripts notdetected by this assay.Director Review Comment LUU Reference Range: .Technical Component performed at [facility] RTPProfessional Component performed by:Yaquelin Mckeon, PhD, FACMGDirector, Molecular OncologyMass[facility] Mental [facility] Center [id number], [address] HamptonThe [facility] [phone] Comment LUU Reference Range: .This assay can detect three different types of BCR-LTZ9mltkej transcripts associated with CML, ALL, and AML: [...] PCR primers and probes are specific for BCR-OER7e48y3, e14a2 and e1a2 fusion transcripts. The BFW4zecznxsqhx is amplified as the control for cDNA quantityand quality. Serial dilutions of a validated positivecontrol RNA with known t(9;22) BCR-ABL1 are used asreference for quantification of BCR-ABL1 relative toABL1. The numeric BCR-ABL1 level is reported as % BCR-ABL1/ABL1 and the detection sensitivity is 4.5 log belowthe standard baseline (<0.0032%).This test was developed and its performance characteristicsdetermined by [facility]. It has not been cleared or approvedby the Food and Drug Administration.References Comment TG Reference Range: .1) Israel T, Allyson S. Molecular monitoring of chronicmyeloid leukemia. Semin Hematol. 2003 Oct; 40(2 Suppl2):62-68.2) NCCN Clinical Practice Guidelines in Oncology ChronicMyeloid Leukemia Version 1.2024 - February 26) Clara KRUSE, Dileep P, Elina P, et al. Establishmentof the of the first World Health OrganizationInternational Genetic Reference Panel for quantitationof BCR-ABL mRNA. Blood. 2010 25; 116(22):k137-362.Performed at: [facility] [id number] [place], [place] [id number] Director: Sherri Davey [facility], Phone: [phone] at: - [facility] [address], [place], [place] [id number] Director: Sherri Davey [facility], Phone: [phone] at: [facility] [place], [place] [id number] Director: Michael Ragsdale PhD, Phone: [phone] Start: 01-21-[address] Darek Saunders DO Work Phone: Start: 01-21-[address] Jocelin Saunders DO Work Phone: Comment on above: Test Ordered: [id number] BCR-ABL1, CML/ALL, PCR, Btegbp71k0 (b2a2) transcript <0.0032 % % Reference Range: .e14a2 (b3a2) transcript <0.0032 % % Reference Range: .e1a2 transcript <0.0032 % % Reference Range: .Interpretation: Negative Reference Range: .NEGATIVE for the BCR-ABL1 e1a2 (p190), e13a2 (b2a2, p210)and e14a2 (b3a2, p210) fusion transcripts. These results donot rule out the presence of rare BCR-ABL1 transcripts notdetected by this assay.Director Review Comment Reference Range: .Technical Component performed at [facility] RTPProfessional Component performed by:Dayan Davila, PhD, FACMGDirector, Molecular OncologyLabcorp [id number], [address] HamptonThe [facility] [phone] Comment LUU Reference Range: .This assay can detect three different types of BCR-FUQ0vdkcsz transcripts associated with CML, ALL, and AML: [...] PCR primers and probes are specific for BCR-SQI6t96v4, e14a2 and e1a2 fusion transcripts. The YEP9zokvzqfqhk is amplified as the control for cDNA quantityand quality. Serial dilutions of a validated positivecontrol RNA with known t(9;22) BCR-ABL1 are used asreference for quantification of BCR-ABL1 relative toABL1. The numeric BCR-ABL1 level is reported as % BCR-ABL1/ABL1 and the detection sensitivity is 4.5 log belowthe standard baseline (<0.0032%).This test was developed and its performance characteristicsdetermined by [employer]. It has not been cleared or approvedby the Food and Drug Administration.References Comment Reference Range: .1) Allyson Elaine S. Molecular monitoring of chronicmyeloid leukemia. Semin Hematol. 2003 Apr; 40(2 Suppl2):62-68.2) NCCN Clinical Practice Guidelines in Oncology ChronicMyeloid Leukemia Version 1.2024 - February 26) Dileep Hoffman P, Elina P, et al. Establishmentof the of the first World Health OrganizationInternational Genetic Reference Panel for quantitationof BCR-ABL mRNA. Blood. 2010 25; 116(22):u450-879.Performed at: [facility] [id number] [facility], [facility], [place] [id number] Director: Sherri Davey [facility], Phone: [phone] at: [facility] [address] [place], [place] [id number] Director: Sherri Davey [facility], Phone: [phone] at: [address] [id number] Director: Michael Ragsdale PhD, Phone: [phone] Start: 01-21-2025 Serum inorganic phosphate measurement Dr. Jocelin Saunders DO Work Phone: Start: 10-22-[address] Darek Saunders DO Work Phone: Start: 07-28-2024 CBC AND ELECTRONIC DIFF Shinal D Maynard CASE FINISHER-TRAVELING PLANT OPERATOR Work Phone: Start: 07-28-2024 Complete blood count with white cell differential, automated Shinal D Maynard CASE FINISHER-TRAVELING PLANT OPERATOR Work Phone: Start: 07-28-2024 Comprehensive metabolic panel Shinal D P atel CASE FINISHER-TRAVELING PLANT OPERATOR Work Phone: Start: 07-20-2024 Measurement of renal function Dr. Saturnino Saunders DO Work Phone: Comment on above: GFR Calc Start: 10-21-20[address] Ul[address]ound elastography of liver Dr[address] Jocelin Saunders Work Phone: Start: 07-30-2023 Radex spine lumbosacral 2/3 views Katelyn Lawton MD Work Phone: Start: 07-30-2023 Bcr/abl1 major breakpnt qualitative/quantitative Joi Camejo PAC Work Phone: Start: 07-30-2023 CBC AND ELECTRONIC DIFF Joi Camejo PAC Work Phone: Start: 07-30-2023 Complete blood count with white cell differential, automated Joi Camejo PAC Work Phone: Start: 07-30-2023 Comprehensive metabolic panel Joi Camejo PAC Work Phone: Start: 07-30-2023 RNA EXTRACTION Joi Camejo PAC Work Phone: Start: 06-05-[address] Jocelin Saunders Work Phone: Start: 04-22-[address] Jocelin Saunders DO Work Phone: Start: 02-06-2023 End: 02-06-2023 Procedure Note: See Note; NOTES: [facility] [place] [address] OFFICE VISIT Date of Service: 02/06/23 1113 MR#: [id number] Acct: [id number] Name: FREDERIC OVALLES Rep #: [id number] : 1960 From: Sawyer Delgado MD Age/Sex: 62/M Location: [facility] Status: Signed HPI Subjective Date of Service [...] and megakaryocytes. ADDENDUM FISH BCR/ABL1 REPORT FROM [employer] INTERPRETATION: BCR/ABL gene rearrangement is detected. 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 Bosutinib August 10, 2022-ongoing MMR (January 2023) [facility] Medical History Atherosclerosis of coronary artery of [place] heart without angina pectoris Encounter for screening [...] use well-balanced diet: about half the time uyen/roman catholic: Amish seatbelt use: always do you feel safe [...] impression and plan discussed. Sawyer Delgado MD Production Staff Worker, [facility] Divisions of Medical Oncology Hematology Department of Internal Medicine [place] [address] This note was generated using a voice [...] End: 01-24-2023 Procedure Note: See Note; NOTES: [facility] Imaging Services [address] [place] [address] Chest PA and Lateral MR#: [id number] Acct: [id number] Name: FREDERIC OVALLES Rep #: [id number] : 1960 M 62 From: Joann Gutierrez MD PCP: Dr. Jocelin Saunders DO Status: REG RCR Study: Chest PA and Lateral Date of Exam: 01/23/23 Exam# [id number] Ordering Dr: Sawyer Delgado MD EXAM: XR [...] Signed: Joann Gutierrez MD at 5:59 EDT Reading Location ID and State: [address] [place] [address] Tel , Service support , CC: Dr. Jocelin Saunders DO; Dr. Sawyer Delgado MD Travel Money Advisor: Signed Sawyer Delgado Work Phone: Start: 12-12-2022 End: 12-12-2022 Procedure Note: See Note; NOTES: [facility] [address] [place] [address] OFFICE VISIT Date of Service: 12/12/22 1331 MR#: [id number] Acct: [id number] Name: FREDERIC OVALLES Rep #: [id number] : 1960 From: Sawyer Delgado MD Age/Sex: 62/M Location: [facility] Status: Signed HPI Subjective Date of Service [...] neoplasm. The flow cytometry analysis report from [employer] is reviewable in the patient???s EMR. BONE [...] and megakaryocytes. ADDENDUM FISH BCR/ABL1 REPORT FROM [employer] INTERPRETATION: BCR/ABL gene rearrangement is detected. 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 Bosutinib August 10, 2022-. [facility] Medical History Atherosclerosis of coronary artery of [place] heart without angina pectoris Encounter for screening [...] use well-balanced diet: about half the time uyen/roman catholic: Amish seatbelt use: always do you feel safe [...] no focal motor deficits Coordination / Balance: nhxoej-ra-obvy test normal Speech: speech normal Gait (Neuro): [...] * June 2022 he was evaluated at [facility] by Dr. Lawton for possible evolving [...] impression and plan discussed. Sawyer Delgado MD Production Staff Worker, [facility] Divisions of Medical Oncology Hematology Department of Internal Medicine [place] [address] This note was generated using a voice recognition system software. Although it was reviewed by the author prior to finalization, it may still contain incorrect words, spelling, and punctuation that were not noted when reviewing prior to saving. If a clinically significant typo or inaccurately typed phrase is noted, please notify the author. 12/12/22 1407 <Electronically signed by Sawyer Delgado MD> Date Saywer Delgado MD Cosigner Signature: Date (if applicable) CC: DO Jocelin Wiseman DO Work Phone: Start: 11-15-2022 Bacteria identified in Urine by Culture Dr. Jocelin Saunders DO Work Phone: Start: 11-15-[address] Jocelin Saunders Work Phone: Start: 11-15-2022 X-ray of lumbosacral spine Dr. Jocelin Saunders Work Phone: Start: 11-15-2022 End: 11-15-2022 Procedure Note: See Note; NOTES: [facility] Imaging Services [address] [place] [id number] L/S Spine Min 4 Views MR#: [id number] Acct: [id number] Name: FREDERIC OVALLES Rep #: [id number] : 1960 M 62 From: Jerome Byrd MD PCP: Dr. Jocelin Saunders DO Status: REG RCR Study: L/S Spine Min 4 Views Date of Exam: 11/15/22 Exam# [id number] Ordering Dr: Savi Rodriguez NP PHOTOCOMPOSITION KEYBOARD OPERATOR -C INDICATION: low back pain acute EXAMINATION/TECHNIQUE: [...] Jerome Byrd MD, SHIRA at 19:15 EDT , CC: PHOTOCOMPOSITION KEYBOARD OPERATOR-C Savi Rodriguez; Dr. Jocelin Saunders DO Travel Money Advisor: Signed Jocelin Saunders DO Work Phone: Start: 11-15-2022 Plain x-ray of pelvis and lower extremity Dr. Jocelin Saunders Work Phone: Start: 11-15-2022 End: 11-15-2022 Procedure Note: See Note; NOTES: [facility] Imaging Services [address] [place] [address] HIP, UNI W/ Pelvis 2-3 Views MR#: [id number] Acct: [id number] Name: FREDERIC OVALLES Rep #: [id number] : 1960 M 62 From: Jerome Byrd MD PCP: Dr. Jocelin Saunders, Status: REG RCR Study: HIP, UNI W/ Pelvis 2-3 Views Date of Exam: Exam# [id number] Ordering Dr: Savi Rodriguez NP PHOTOCOMPOSITION KEYBOARD OPERATOR -C INDICATION: low back and left hip [...] 19:14 EDT Reading Location ID and State: [facility] / [place] Tel , Service support , CC: SELVIN Rodriguez; Dr. Jocelin Saunders DO Travel Money Advisor: Signed Jocelin Saunders DO Work Phone: Start: 11-15-2022 End: 11-15-2022 Procedure Note: See Note; NOTES: [facility] [address] [place] [address] OFFICE VISIT Date of Service: 11/15/22813 MR#: [id number] Acct: [id number] Name: FREDERIC OVALLES Rep #: [id number] : 1960 From: Savi Akers Age/Sex: 62/M Location: [facility] Status: Signed HPI Subjective Date of Service [...] and megakaryocytes. ADDENDUM FISH BCR/ABL1 REPORT FROM [employer] INTERPRETATION: BCR/ABL gene rearrangement is detected. RESULTS: BCR/ABL1 Normal Nuclei Positive Nuclei with Dual Fusion 3.33% 96.67% CYTOGENETICS REPORT FROM [employer] INTERPRETATION: Abnormal male karyotype was observed in [...] Bosulif 400 mg at 6 pm. States I still feel good No reoccurrence of diarrhea x 1 month. Specifically denies fever/chills, fatigue, sweats, headache, dizziness, vision changes, rash, CP, palpitations, abd pain, nausea, swelling/pain of his extremities. Describes appetite as good, PO fluid intake as adequate. [facility] Medical History (Updated 11/15/22 @ 08:39 by Savi Rodriguez PHOTOCOMPOSITION KEYBOARD OPERATOR, PHOTOCOMPOSITION KEYBOARD OPERATOR-C) Atherosclerosis of coronary artery of [place] heart without angina pectoris Encounter for screening [...] use well-balanced diet: about half the time uyen/roman catholic: Amish seatbelt use: always do you feel safe at home: Yes ROS ROS Narrative Negative except as documented in the interval HPI Intake Vital Signs 11/15/22 08:15 04/27/23 08:18 Height 6 ft 6 ft Weight: [...] * June 2022 he was evaluated at [facility] by Dr. Lawton for possible evolving [...] 0846 <Electronically signed by Savi Rodriguez NP PHOTOCOMPOSITION KEYBOARD OPERATOR-C> Date Savi Rodriguez NP PHOTOCOMPOSITION KEYBOARD OPERATOR-C Cosigner Signature: Date (if applicable) CC: Dr. Jocelin Saunders, DO Jocelin Saunders DO Work Phone: Start: 10-22-2022 End: 10-22-2022 Procedure Note: See Note; NOTES: [facility] [place] [address] [place] [address] OFFICE VISIT Date of Service: 10/22/22 MR#: [id number] Acct: [id number] Name: FREDERIC OVALLES Rep #: [id number] : 1960 Provider: SELVIN De La Rosa Age/Sex: 62/M Location: [facility] Status: Signed Assessment and Plan Assessment and [...] shortness of breath on exertion. He states not like regular exertion but for example like chasing my dog the other day. 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 Operator Cavity Pump Required: No DME Vendor: N/A Accompanied by: [...] 09/18/22 [Rx Confirmed 10/22/22] PFSH Medical History (Reviewed 10/22/22 @ 08:18 by Karin De La Rosa PHOTOCOMPOSITION KEYBOARD OPERATOR, PHOTOCOMPOSITION KEYBOARD OPERATOR-C) Atherosclerosis of coronary artery of [place] heart without angina pectoris Encounter for screening [...] injury of right foot, sequela Surgical History (Reviewed 10/22/22 @ 08:18 by Karin De La Rosa PHOTOCOMPOSITION KEYBOARD OPERATOR, PHOTOCOMPOSITION KEYBOARD OPERATOR-C) History of bilateral inguinal hernia repair (08/2018) History of bone marrow biopsy (04/13/20) History of coronary artery stent placement (01/20/17) Status post laparoscopic Migue fundoplication (10/15/18) Family History (Reviewed 10/22/22 @ 08:18 by Karin De La Rosa PHOTOCOMPOSITION KEYBOARD OPERATOR, PHOTOCOMPOSITION KEYBOARD OPERATOR-C) Father Colon cancer Diabetes Heart disease Hypertension CAD (coronary artery disease) Sister Breast cancer Mother CAD (coronary artery disease) Hypertension Heart disease Social History (Reviewed 10/22/22 @ 08:18 by Karin De La Rosa PHOTOCOMPOSITION KEYBOARD OPERATOR, PHOTOCOMPOSITION KEYBOARD OPERATOR-C) household members: spouse Smoking Status: Current every day smoker tobacco type: cigarettes Tobacco: How many years used: 40 Electronic Cigarette Use: not used second hand exposure: No quit status: considering quitting counseling given: provider counseling alcohol intake: current alcohol intake frequency: a few times a week Alcohol type: beer substance use type: does not use well-balanced diet: about half the time uyen/roman catholic: Amish seatbelt use: always do you feel safe [...] signed by Karin De La Rosa NP PHOTOCOMPOSITION KEYBOARD OPERATOR-C> Date Karin De La Rosa NP PHOTOCOMPOSITION KEYBOARD OPERATOR-C Cosigner Signature: Date (if applicable) CC: Dr. Jocelin Saunders, DO Jocelin Saunders DO Work Phone: Start: 10-18-2022 End: 10-18-2022 Procedure Note: See Note; NOTES: [facility] [address] [address] OFFICE VISIT Date of Service: 10/18/22 0849 MR#: [id number] Acct: [id number] Name: MARTHAFREDERIC Rep #: [id number] : 1960 From: Sawyer Delgado MD Age/Sex: 62/M Location: [facility] Status: Signed HPI Subjective Date of Service [...] neoplasm. The flow cytometry analysis report from [employer] is reviewable in the patient???s EMR. BONE [...] and megakaryocytes. ADDENDUM FISH BCR/ABL1 REPORT FROM [employer] INTERPRETATION: BCR/ABL gene rearrangement is detected. 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 Bosutinib August 10, 2022-. [facility] Medical History Atherosclerosis of coronary artery of [place] heart without angina pectoris Encounter for screening [...] use well-balanced diet: about half the time uyne/roman catholic: Amish seatbelt use: always do you feel safe [...] 96 Oxygen Delivery Method room air Intake Operator Cavity Pump Required: No Accompanied by: Self Is patient [...] * June 2022 he was evaluated at [facility] by Dr. Lawton for possible evolving [...] impression and plan discussed. Sawyer Delgado MD Production Staff Worker, [facility] Divisions of Medical Oncology Hematology Department of Internal Medicine [place] [id number] This note was generated using a voice recognition system software. Although it was reviewed by the author prior to finalization, it may still contain incorrect words, spelling, and punctuation that were not noted when reviewing prior to saving. If a clinically significant typo or inaccurately typed phrase is noted, please notify the author. 10/18/22904 <Electronically signed by Sawyer Delgado MD> Date Sawyer Delgado MD Cosigner Signature: Date (if applicable) CC: Dr. Jocelin Saunders, DO Jocelin Saunders DO Work Phone: Start: 10-18-2022 End: 10-18-2022 Procedure Note: See Note; NOTES: [facility] Cardiovascular Services [address] [place] [address] MR#: [id number] Acct: [id number] Name: FREDERIC OVALLES Rep #: [id number] : 1960 62 From: Hector Hsu MD Primary Care: Dr. Jocelin Saunders, Status: REG CLI Referring Dr: Felecia: Rigoberto Payan Stress Test Report Exercise myocardial perfusion stress [...] at a high workload Preserved ejection fraction. 10/18/22730 <Electronically signed by Hector Hsu MD> Date Hector Hsu MD CC: Dr. Hector Hsu MD; Dr. Jocelin Saunders, Date Dictated: 10/18/22728 Date Transcribed: 10/18/22728 Travel Money Advisor: [place] Signed Jocelin Saunders DO Work Phone: Start: 10-18-2022 Plain chest X-ray Dr. Jocelin Saunders Work Phone: Start: 10-18-2022 Radiologic exam chest [address] Saturnino Saunders DO Work Phone: Start: 10-18-2022 End: 10-18-2022 Procedure Note: See Note; NOTES: [facility] Imaging Services [address] [place] [address] Chest PA and Lateral MR#: [id number] Acct: [id number] Name: FREDERIC OVALLES Rep #: [id number] : 1960 M 62 From: Ryne Pena DO PCP: Dr. Jocelin Saunders DO Status: REG RCR Study: Chest PA and Lateral Date of Exam: 10/18/22 Exam# [id number] Ordering Dr: Sawyer Delgado MD INDICATION: F/U [...] Signed: Ryne Pena DO at 18:35 EDT Reading Location ID and State: [facility] / [place] Tel [phone], Service support , CC: Dr. Jocelin Saunders DO; Dr. Sawyer Delgado MD Travel Money Advisor: Signed Sawyer Delgado Work Phone: Start: 10-17-2022 Radionuclide imaging of perfusion of myocardium under exercise stress Dr. Jocelin Saunders Work Phone: Start: 10-05-2022 End: 10-05-2022 Procedure Note: See Note; NOTES: [facility] [address] [place] [address] OFFICE VISIT Date of Service: 10/05/22 MR#: [id number] Acct: [id number] Name: MARISAPATRICIAFREDERIC Rep #: [id number] : 1960 Provider: Dr. Hector Hsu MD Age/Sex: 62/M Location: [facility] Status: Signed [facility] History of Present Illness Details: This is [...] claudication.??? His physical exam demonstrated clear lung ousna regular rate and rhythm and no pedal [...] air Intake Visit Reasons: 6 m fu Operator Cavity Pump Required: No Is patient in pain?: No [...] Medical History Atherosclerosis of coronary artery of [place] heart without angina pectoris Encounter for screening [...] use well-balanced diet: about half the time uyen/roman catholic: Amish seatbelt use: always do you feel safe [...] Today I25.10 - Atherosclerotic heart disease of [place] coronary artery without angina pectoris Liver Profile Today I10 - Essential (primary) hypertension, Z95.5 - Presence of coronary angioplasty implant and graft Nuclear Stress Test - Treadmil Today I25.10 - Atherosclerotic heart disease of [place] coronary artery without angina pectoris Plan Details 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 Status: Signed HPI Subjective Date of Service [...] neoplasm. The flow cytometry analysis report from [employer] is reviewable in the patient???s EMR. BONE [...] and megakaryocytes. ADDENDUM FISH BCR/ABL1 REPORT FROM [employer] INTERPRETATION: BCR/ABL gene rearrangement is detected. RESULTS: BCR/ABL1 Normal Nuclei Positive Nuclei with Dual Fusion 3.33% 96.67% CYTOGENETICS REPORT FROM [employer] INTERPRETATION: Abnormal male karyotype was observed in [...] Bosulif 400 mg at 6 pm. States I still feel good No reoccurrence of diarrhea x 1 month. Specifically denies fever/chills, fatigue, sweats, headache, dizziness, vision changes, rash, CP, palpitations, abd pain, nausea, swelling/pain of his extremities. Describes appetite as good, PO fluid intake as adequate. [facility] Medical History Atherosclerosis of coronary artery of [place] heart without angina pectoris Encounter for screening [...] use well-balanced diet: about half the time uyen/roman catholic: Amish seatbelt use: always do you feel safe [...] * June 2022 he was evaluated at [facility] by Dr. Lawton for possible evolving [...] pending. 10/04/22 1301 <Electronically signed by Savi CASHC> Date Savi MONTALVO Cosigner Signature: Date (if applicable) CC: DO Jocelin Wiseman DO Work Phone: Start: 10-04-2022 End: 10-05-2022 Procedure Note: See Note; NOTES: [facility] Cardiovascular Services [address] [place] [address] 12 Lead EKG 10/04/22 0945 MR#: [id number] Acct: [id number] Name: FREDERIC OVALLES Rep #: [id number] : 1960 62 From: Luke Campbell MD Attending Dr: Dr. 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 Rate : 061 BPM Atrial Rate : 061 BPM P-R Int : 156 ms QRS Dur : 094 ms QT Int : 398 ms P-R-T Axes : -08 -15 013 degrees QTc Int : 400 ms Normal sinus rhythm Normal ECG Confirmed by ELVI HICKS, ANI ([id number]), city editor RULA VAZQUEZ ([id number]) on 10/05/2022 7:03:34 AM Referred By: Sawyer Delgado Confirmed By:BRYANT CAMPBELL MD 10/05/22 0703 Date Luke Campbell MD CC: Dr. Jocelin Saunders DO; Dr. Sawyer Delgado MD Signed Sawyer Delgado Work Phone: Start: 09-20-2022 End: 09-20-2022 Procedure Note: See Note; NOTES: [facility] [address] [address] OFFICE VISIT Date of Service: 09/20/22 1352 MR#: [id number] Acct: [id number] Name: FREDERIC OVALLES Rep #: [id number] : 1960 From: Sawyer Delgado MD Age/Sex: 62/M Location: [facility] Status: Signed HPI Subjective Date of Service [...] neoplasm. The flow cytometry analysis report from [employer] is reviewable in the patient???s EMR. BONE [...] and megakaryocytes. ADDENDUM FISH BCR/ABL1 REPORT FROM [employer] INTERPRETATION: BCR/ABL gene rearrangement is detected. 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 Bosutinib August 10, 2022-. [facility] Medical History Atherosclerosis of coronary artery of [place] heart without angina pectoris Encounter for screening [...] use well-balanced diet: about half the time uyen/roman catholic: Amish seatbelt use: always do you feel safe [...] no focal motor deficits Coordination / Balance: tmnehm-fy-kqdb test normal Speech: speech normal Gait (Neuro): [...] * June 2022 he was evaluated at [facility] by Dr. Lawton for possible evolving [...] impression and plan discussed. Sawyer Delgado MD Production Staff Worker, [facility] Divisions of Medical Oncology Hematology Department of Internal Medicine [place] [facility] [place] [phone] This note was generated using a voice [...] End: 09-06-2022 Procedure Note: See Note; NOTES: [facility] [place] [address] OFFICE VISIT Date of Service: 09/06/22 1049 MR#: [id number] Acct: [id number] Name: FREDERIC OVALLES Rep #: [id number] : 1960 From: Savi Rodriguez NP PHOTOCOMPOSITION KEYBOARD OPERATOR -C Age/Sex: 62/M Location: [facility] Status: Signed HPI Subjective Date of Service [...] and megakaryocytes. ADDENDUM FISH BCR/ABL1 REPORT FROM [employer] INTERPRETATION: BCR/ABL gene rearrangement is detected. RESULTS: BCR/ABL1 Normal Nuclei Positive Nuclei with Dual Fusion 3.33% 96.67% CYTOGENETICS REPORT FROM [employer] INTERPRETATION: Abnormal male karyotype was observed in [...] Bosulif 400 mg at 6 pm. States I feel great citing he was able to get out [...] as good, PO fluid intake as adequate. [facility] Medical History Atherosclerosis of coronary artery of [place] heart without angina pectoris Encounter for screening [...] use well-balanced diet: about half the time uyen/roman catholic: Amish seatbelt use: always do you feel safe [...] Bilateral pleural effusion: Status: Inactive Medications: New ilztzbsshaj-fmqfgkbbg-jsbfffcm 100-62.5-25 mcg (Trelegy Ellipta) 1 inh inhalation [...] tap. June 2022 he was evaluated at [facility] by Dr. Lawton for possible evolving [...] prior. 09/06/22 1121 <Electronically signed by Savi Rodriguez NP, NP-C> Date Savi MONTALVO Cosigner Signature: Date (if applicable) CC: Dr. Jocelin Saunders, DO Jocelin Cabreraon DO Work Phone: Start: 08-30-2022 End: 08-30-2022 Procedure Note: See Note; NOTES: [facility] [place] [address] OFFICE VISIT Date of Service: 08/30/22 1254 MR#: [id number] Acct: [id number] Name: FREDERIC OVALLES Rep #: [id number] : 1960 From: Sawyer Delgado MD Age/Sex: 62/M Location: [facility] Status: Signed HPI Subjective Date of Service [...] and megakaryocytes. ADDENDUM FISH BCR/ABL1 REPORT FROM [employer] INTERPRETATION: BCR/ABL gene rearrangement is detected. 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 Bosutinib to August 10, 2022. [facility] Medical History (Updated 08/30/22 @ 13:[address] Sawyer Delgado MD) Atherosclerosis of coronary artery of [place] heart without angina pectoris Encounter for screening [...] use well-balanced diet: about half the time uyen/roman catholic: Amish seatbelt use: always do you feel safe [...] no focal motor deficits Coordination / Balance: wiojve-zi-pose test normal Speech: speech normal Gait (Neuro): [...] tap. June 2022 he was evaluated at [facility] by Dr. Lawton for possible evolving [...] impression and plan discussed. Sawyer Delgado MD Production Staff Worker, [facility] Divisions of Medical Oncology Hematology Department of Internal Medicine [place] [facility] [place] [phone] This note was generated using a voice [...] End: 08-31-2022 Procedure Note: See Note; NOTES: [facility] Cardiovascular Services [address] [place] [address] 12 Lead EKG 08/30/22 1158 MR#: [id number] Acct: [id number] Name: FREDERIC OVALLES Rep #: [id number] : 1960 62 From: Luke Campbell MD Attending Dr: Dr. Sawyer Delgado MD Status: REG CLI Ordering Dr: Sawyer Delgado MD Date: 08/30/22 Location: [facility] Sex: M C Admitted: Test Reason : THERAPUTIC DRUG LEVE Blood Pressure : / mmHG Vent. Rate : 066 BPM Atrial Rate : 066 BPM P-R Int : 166 ms QRS Dur : 098 ms QT Int : 392 ms P-R-T Axes : 012 -11 017 degrees QTc Int : 410 ms Normal sinus rhythm Normal ECG Confirmed by ELVI HICKS, ANI ([id number]), city editor RULA VAZQUEZ ([id number]) on 08/31/2022 12:59:19 PM Referred By: DANNY Confirmed By:BRYANT CAMPBELL MD 08/31/22 1259 Date Luke Campbell MD CC: Dr. Jocelin Saunders DO; Dr. Sawyer Delgado MD Signed Sawyer Delgado Work Phone: Start: 08-23-2022 End: 08-23-2022 Procedure Note: See Note; NOTES: [facility] [address] [address] OFFICE VISIT Date of Service: 08/23/22 1043 MR#: [id number] Acct: [id number] Name: FREDERIC OVALLES Rep #: [id number] : 1960 From: Savi Rodriguez NP PHOTOCOMPOSITION KEYBOARD OPERATOR -C Age/Sex: 62/M Location: [facility] Status: Signed HPI Subjective Date of Service [...] neoplasm. The flow cytometry analysis report from [employer] is reviewable in the patient???s EMR. BONE [...] and megakaryocytes. ADDENDUM FISH BCR/ABL1 REPORT FROM [employer] INTERPRETATION: BCR/ABL gene rearrangement is detected. RESULTS: BCR/ABL1 Normal Nuclei Positive Nuclei with Dual Fusion 3.33% 96.67% CYTOGENETICS REPORT FROM [employer] INTERPRETATION: Abnormal male karyotype was observed in [...] a day, well controlled with the loperamide. Dawson foods exacerbate diarrhea. Has been experiencing frontal headaches, predates Bosilif. States the headaches seem to be better, less often and less severe. Appetite good, PO fluid intake likely adequate. Specifically denies fever/chills, sweats, dizziness, CP, palpitations, abd pain, swelling/pain of his extremities, overt bleeding/abnormal bruising. Exertional dyspnea unchanged. Met with pulmonology, Dr. Brooks last week and inhaled medications changed. [facility] Medical History Atherosclerosis of coronary artery of [place] heart without angina pectoris Encounter for screening [...] use well-balanced diet: about half the time uyen/roman catholic: Amish seatbelt use: always do you feel safe [...] tap. June 2022 he was evaluated at [facility] by Dr. Lawton for possible evolving [...] weeks 08/23/22 1139 <Electronically signed by Savi MONTALVO> Date Savi MONTALVO Cosigner Signature: Date (if applicable) CC: DO Jocelni Wiseman DO Work Phone: Start: 08-20-2022 End: 08-20-2022 Procedure Note: See Note; NOTES: [facility] Medicine of [address] [place] [address] OFFICE VISIT Date of Service: 08/20/22 MR#: [id number] Acct: [id number] Name: FREDERIC OVALLES Alyx Rep #: [id number] : 1960 Provider: Dr. John Brooks DO Age/Sex: 62/M Location: [facility] Status: Signed Assessment and Plan Assessment and [...] may require an additional thoracentesis. Medications: New nbmvkebcvgy-zmgwkbynm-wmuadhac 100-62.5-25 mcg (Trelegy Ellipta) 1 inh inhalation [...] effusion. The patient does have an approximate 07-dpkp-meiz smoking history and continues to smoke 0.25 [...] Medical History Atherosclerosis of coronary artery of [place] heart without angina pectoris Encounter for screening [...] use well-balanced diet: about half the time uyen/roman catholic: Amish seatbelt use: always do you feel safe [...] End: 08-17-2022 Procedure Note: See Note; NOTES: [facility] Imaging Services [address] [place] [address] Chest PA and Lateral MR#: [id number] Acct: [id number] Name: FREDERIC OVALLES Rep #: [id number] : 1960 M 62 From: Chalino Quiles PCP: Dr. Jocelin Saunders DO Status: REG CLI Study: Chest PA and Lateral Date of Exam: 08/16/22 Exam# [id number] Ordering Dr: Sawyer Delgado MD EXAM: XR CHEST, 2 VIEWS CLINICAL INDICATION: F/U PLEURAL EFFUSION TECHNIQUE: Frontal and lateral views of the chest. This report was created using [employer] report generation technology. COMPARISON: 08/08/2022 and 07/03/2022. [...] Jocelin Saunders DO; Dr. Sawyer Delgado MD Travel Money Advisor: Signed Sawyer Delgado Work Phone: Start: 08-16-2022 End: 08-17-2022 Procedure Note: See Note; NOTES: [facility] Cardiovascular Services [address] [facility] [address] 12 Lead EKG 08/16/22 1401 MR#: [id number] Acct: [id number] Name: FREDERIC OVALLES Rep #: [id number] : 1960 62 From: Hector Hsu MD Attending Dr: Dr. Sawyer Delgado MD Status: REG CLI Ordering Dr: Sawyer Delgado MD Date: 08/16/22 Location: [facility] Sex: M C Admitted: Test Reason : ROUTINE Blood Pressure : / mmHG Vent. Rate : 069 BPM Atrial Rate : 069 BPM P-R Int : 158 ms QRS Dur : 090 ms QT Int : 386 ms P-R-T Axes : 023 -17 -05 degrees QTc Int : 413 ms Normal sinus rhythm Normal ECG Confirmed by HECTOR HSU MD ([id number]), city editor RULA VAZQUEZ ([id number]) on 08/17/2022 12:55:11 PM Referred By: Sawyer Delgado Confirmed By:HECTOR HSU MD 08/17/22 1255 Date Hector Hsu MD CC: Dr. Jocelin Saunders, ; Dr. Sawyer Delgado MD Signed Sawyer Delgado Work Phone: Start: 08-16-2022 End: 08-16-2022 Procedure Note: See Note; NOTES: [facility] [address] [address] OFFICE VISIT Date of Service: 08/16/22 1301 MR#: [id number] Acct: [id number] Name: FREDERIC OVALLES Rep #: [id number] : 1960 From: Sawyer Delgado MD Age/Sex: 62/M Location: [facility] Status: Signed HPI [facility] Date of Service 08/16/22 Chief Complaint Chronic [...] and megakaryocytes. ADDENDUM FISH BCR/ABL1 REPORT FROM [employer] INTERPRETATION: BCR/ABL gene rearrangement is detected. 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 Bosutinib to August 10, 2022. [facility] Medical History Atherosclerosis of coronary artery of [place] heart without angina pectoris Encounter for screening [...] use well-balanced diet: about half the time uyen/roman catholic: Amish seatbelt use: always do you feel safe [...] no focal motor deficits Coordination / Balance: sxrwnl-kx-wkmr test normal Speech: speech normal Gait (Neuro): [...] therapeutic drug level monitoring, Z79.899 - Other buttermaker helper (current) drug therapy Comprehensive Metabolic Profil 09/20/22 [...] tap. June 2022 he was evaluated at [facility] by Dr. Lawton for possible evolving [...] impression and plan discussed. Sawyer Delgado MD Production Staff Worker, [facility] Divisions of Medical Oncology Hematology Department of Internal Medicine [place] [phone] This note was generated using a voice recognition system software. Although it was reviewed by the author prior to finalization, it may still contain incorrect words, spelling, and punctuation that were not noted when reviewing prior to saving. If a clinically significant typo or inaccurately typed phrase is noted, please notify the author. 08/16/221448 <Electronically signed by Sawyer Delgado MD> Date Sawyer Delgado MD Cosigner Signature: Date (if applicable) CC: Jocelin Saunders DO Work Phone: Start: 08-09-2022 End: 08-13-2022 Procedure Note: See Note; NOTES: [facility] [place] [address] OFFICE VISIT Date of Service: 08/09/221442 MR#: [id number] Acct: [id number] Name: FREDERIC OVALLES Rep #: [id number] : 1960 From: Savi Rodriguez NP PHOTOCOMPOSITION KEYBOARD OPERATOR -C Age/Sex: 62/M Location: [facility] Status: Signed HPI Subjective Date of Service [...] neoplasm. The flow cytometry analysis report from [employer] is reviewable in the patient???s EMR. BONE [...] and megakaryocytes. ADDENDUM FISH BCR/ABL1 REPORT FROM [employer] INTERPRETATION: BCR/ABL gene rearrangement is detected. RESULTS: BCR/ABL1 Normal Nuclei Positive Nuclei with Dual Fusion 3.33% 96.67% CYTOGENETICS REPORT FROM [employer] INTERPRETATION: Abnormal male karyotype was observed in [...] otherwise he has no outstanding physical complaints. [facility] Medical History Atherosclerosis of coronary artery of [place] heart without angina pectoris Encounter for screening [...] use well-balanced diet: about half the time uyen/roman catholic: Amish seatbelt use: always do you feel safe [...] not having achieved remission, Z79.899 - Other buttermaker helper (current) drug therapy CBC W/Diff, Automated 08/16/22 C92.10 - Chronic myeloid leukemia, BCR/ABL-positive, not having achieved remission, I25.10 - Atherosclerotic heart disease of [place] coronary artery without angina pectoris, Z79.899 - Other half-way (current) drug therapy Retic Panel Count 08/16/22 C92.10 - Chronic myeloid leukemia, BCR/ABL-positive, not having achieved remission, Z79.899 - Other half-way (current) drug therapy Comprehensive Metabolic Profil 08/23/22 C92.10 - Chronic myeloid leukemia, BCR/ABL-positive, not having achieved remission, Z79.899 - Other buttermaker helper (current) drug therapy CBC W/Diff, Automated 08/23/22 C92.10 - Chronic myeloid leukemia, BCR/ABL-positive, not having achieved remission, Z79.899 - Other half-way (current) drug therapy Retic Panel Count 08/23/22 C92.10 - Chronic myeloid leukemia, BCR/ABL-positive, not having achieved remission, Z79.899 - Other buttermaker helper (current) drug therapy Comprehensive Metabolic Profil 08/30/22 C92.10 - Chronic myeloid leukemia, BCR/ABL-positive, not having achieved remission, Z79.899 - Other buttermaker helper (current) drug therapy CBC W/Diff, Automated 08/30/22 C92.10 - Chronic myeloid leukemia, BCR/ABL-positive, not having achieved remission, Z79.899 - Other buttermaker helper (current) drug therapy Retic Panel Count 08/30/22 C92.10 - Chronic myeloid leukemia, BCR/ABL-positive, not having achieved remission, Z79.899 - Other half-way (current) drug therapy Comprehensive Metabolic Profil 09/06/22 C92.10 - Chronic myeloid leukemia, BCR/ABL-positive, not having achieved remission, Z79.899 - Other buttermaker helper (current) drug therapy CBC W/Diff, Automated 09/06/22 C92.10 - Chronic myeloid leukemia, BCR/ABL-positive, not having achieved remission, Z79.899 - Other buttermaker helper (current) drug therapy Retic Panel Count 09/06/22 C92.10 - Chronic myeloid leukemia, BCR/ABL-positive, not having achieved remission, Z79.899 - Other buttermaker helper (current) drug therapy Medications: Discontinued benzonatate (Tessalon [...] tap. June 2022 he was evaluated at [facility] by Dr. Lawton for possible evolving [...] to proceed. Patient is presently working with [facility] patient assistance program to coordinate acquisition of [...] clinical information. 08/13/221817 <Electronically signed by Savi CASHC> Date Savi CASHC Cosigner Signature: Date (if applicable) CC: Dr. Jocelin Saunders, DO Jocelin Saunders DO Work Phone: Start: 08-09-2022 End: 08-09-2022 Procedure Note: See Note; NOTES: [facility] Pulmonary Services/Neurology [address] [place] [address] MR#: [id number] Acct: [id number] Name: FREDERIC OVALLES Rep #: [id number] : 1960 62 From: Gallito Malcolm MD Referring Dr: Status: REG CLI Location: PSN Date: Sex: M C PSN 6 Minute Walk Test 6 Minute Walk Test 6 Minute Walk Test: 6 Minute Walk Test PSN:6-Minute Walk Test Start: 08/09/22 08:25 Freq: Status: Active Protocol: RESP.6MINW Document 08/09/22 08:15 [facility] (Rec: 08/09/22 08:28 [facility] [id number]) 6 Minute Walk Test Date Performed 08/09/22 [...] 89 Dyspnea Felicity Scale (0-10) 0.5 Exertion Felicity Scale (6-20) 8 Post-test Oxygen Delivery Method [...] Gallito Malcolm MD CC: Date Dictated: 08/09/22 143 Date Transcribed: 08/09/221438 Travel Money Advisor: Dr. Gallito Malcolm MD Signed Jocelin Saunders DO Work Phone: Start: 08-08-2022 Plain chest X-ray Dr. Jocelin Saunders Work Phone: Start: 08-08-2022 End: 08-08-2022 Procedure Note: See Note; NOTES: [facility] Imaging Services [address] [place] [address] Chest PA and Lateral MR#: [id number] Acct: [id number] Name: FREDERIC OVALLES Rep #: [id number] : 1960 M 62 From: Ari Quiles PCP: Dr. Jocelin Saunders DO Status: REG CLI Study: Chest PA and Lateral Date of Exam: 08/08/22 Exam# [id number] Ordering Dr: Sawyer Delgado MD INDICATION: F/U [...] Signed: Ari Hallman MD at 17:21 EST , CC: Dr. Jocelin Saunders DO; Dr. Sawyer Delgado MD Travel Money Advisor: Signed Sawyer Delgado Work Phone: Start: 08-08-2022 End: 08-09-2022 Procedure Note: See Note; NOTES: [facility] Cardiovascular Services [address] [place] [address] 12 Lead EKG 08/08/22 1609 MR#: [id number] Acct: [id number] Name: FREDERIC OVALLES Rep #: [id number] : 1960 62 From: Hector Hsu MD Attending Dr: Dr. Sawyer Delgado MD Status: REG [facility] Ordering Dr: Sawyer Delgado MD Date: 08/08/22 Location: [facility] Sex: M C Admitted: Test Reason [...] Abnormal ECG Confirmed by HECTOR HSU MD ([id number]), city editor RULA VAZQUEZ ([id number]) on 08/09/2022 8:32:27 AM Referred By: Sawyer Delgado Confirmed By:HECTOR HSU MD 08/09/22 0832 Date Hector Hsu MD CC: Dr. Jocelin Saunders, DO; Dr. Sawyer Delgado MD Signed Sawyer Delgado Work Phone: Start: 08-08-2022 End: 08-08-2022 Procedure Note: See Note; NOTES: [facility] [place] [facility] [address] [place] [address] OFFICE VISIT Date of Service: 08/08/22 1419 MR#: [id number] Acct: [id number] Name: FREDERIC OVALLES Rep #: [id number] : 1960 From: Sawyer Delgado MD Age/Sex: 62/M Location: [facility] Status: Signed HPI Subjective Date of Service [...] neoplasm. The flow cytometry analysis report from [employer] is reviewable in the patient???s EMR. BONE [...] and megakaryocytes. ADDENDUM FISH BCR/ABL1 REPORT FROM [employer] INTERPRETATION: BCR/ABL gene rearrangement is detected. 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 Bosutinib to start July 2022. [facility] Medical History Atherosclerosis of coronary artery of [place] heart without angina pectoris Encounter for screening [...] use well-balanced diet: about half the time uyen/roman catholic: Amish seatbelt use: always do you feel safe [...] Confirmed 08/08/22] benzonatate 100 mg capsule (Tessalpatricia Perlamelie) 100 mg PO BID PRN cough [...] no focal motor deficits Coordination / Balance: bkxtuq-zj-kiuq test normal Speech: speech normal Gait (Neuro): [...] tap. June 2022 he was evaluated at [facility] by Dr. Lawton for possible evolving [...] impression and plan discussed. Sawyer Delgado MD Production Staff Worker, [facility] Divisions of Medical Oncology Hematology Department of Internal Medicine [facility] [place] [phone] This note was generated using a voice recognition system software. Although it was reviewed by the author prior to finalization, it may still contain incorrect words, spelling, and punctuation that were not noted when reviewing prior to saving. If a clinically significant typo or inaccurately typed phrase is noted, please notify the author. 08/08/22 3763 <Electronically signed by Sawyer Delgado MD> Date Sawyer Delgado MD Cosigner Signature: Date (if applicable) CC: MD Jocelin Canela DO Work Phone: Start: 08-06-2022 End: 08-06-2022 Procedure Note: See Note; NOTES: [facility] Pulmonary Services/Neurology [address] [place] [address] MR#: [id number] Acct: [id number] Name: FREDERIC OVALLES Rep #: [id number] : 1960 62 From: Gallito Malcolm MD Referring Dr: Status: REG [facility] Location: [facility] Date: 08/06/22 Sex: M C COMPLETE PULMONARY FUNCTION TEST INTERPRETATION Brief HPI: Patient is a 62-year-old male, currently under the care of Dr. Brooks, who presents to [facility] for complete pulmonary function tests secondary [...] MD; Dr. John Brooks DO; Dr. Jocelin Saudners DO Date Dictated: 08/06/22 1018 Date Transcribed: 08/06/22 1018 Travel Money Advisor: MADAY Signed Jocelin Saunders DO Work Phone: Start: 07-09-2022 End: 07-09-2022 Procedure Note: See Note; NOTES: [facility] [place] [address] [place] [address]. [address] [place] [address] OFFICE VISIT Date of Service: 07/09/22 MR#: [id number] Acct: [id number] Name: FREDERIC OVALLES Rep #: [id number] : 1960 Provider: Dr. John Brooks DO Age/Sex: 62/M Location: [facility] Status: Signed Assessment and Plan Assessment and [...] today in referral for the evaluation of water on his lungs. The patient reported that he has been [...] effusion. The patient does have an approximate 39-uwin-izxj smoking history and continues to smoke 0.25 packs of cigarettes per day. In addition, he did grow up in a smoking household. He was previously employed working in a [employer] setting. He currently denies any chest [...] Chief Complaint: Chronic myeloid leukemia on treatment Operator Cavity Pump Required: No DME Vendor: n/a Accompanied by: [...] PO DAILY #7 tabs 06/03/22 [Rx Confirmed 12/19/22] fluticasone propionate 110 mcg/actuation HFA aerosol inhaler 1 puff inhalation BID 07/04/22 [History Confirmed 07/09/22] [facility] Medical History Atherosclerosis of coronary artery of [place] heart without angina pectoris Encounter for screening [...] use well-balanced diet: about half the time uyen/roman catholic: Amish seatbelt use: always do you feel safe [...] End: 07-04-2022 Procedure Note: See Note; NOTES: [facility] [place] [address] OFFICE VISIT Date of Service: 07/04/22 1127 MR#: [id number] Acct: [id number] Name: FREDERIC OVALLES Rep #: [id number] : 1960 From: Sawyer Delgado MD Age/Sex: 62/M Location: [facility] Status: Signed HPI Subjective Date of Service [...] and megakaryocytes. ADDENDUM FISH BCR/ABL1 REPORT FROM [employer] INTERPRETATION: BCR/ABL gene rearrangement is detected. 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] Treatment: Dasatinib 100 mg daily April 28, 2020- [facility] Medical History Atherosclerosis of coronary artery of [place] heart without angina pectoris Encounter for screening [...] use well-balanced diet: about half the time uyen/roman catholic: Amish seatbelt use: always do you feel safe [...] Confirmed 07/04/22] benzonatate 100 mg capsule (Tessalon Perles) 100 [...] no focal motor deficits Coordination / Balance: rpkbnh-lj-sdxn test normal Speech: speech normal Gait (Neuro): [...] and then May 2022 he developed 2 viral illnesses, then developed increasing shortness of breath and [...] #1-Continue dasatinib standard dose and referred to [facility] for an opinion regarding warning of [...] impression and plan discussed. Sawyer Delgado MD Production Staff Worker, [facility] Divisions of Medical Oncology Hematology Department of Internal Medicine [place] [phone] This note was generated using a voice [...] Cosigner Signature: Date (if applicable) CC: Dr. Katelyn Lawton MD; DO Jocelin Wiseman DO Work Phone: Start: 07-03-2022 Plain chest X-ray Dr. Jocelin Saunders Work Phone: Start: 07-03-2022 End: 07-03-2022 Procedure Note: See Note; NOTES: [facility] Imaging Services [address] [place], [place] [address] Chest PA and Lateral MR#: [id number] Acct: [id number] Name: FREDERIC OVALLES Rep #: [id number] : 1960 M 62 From: Jeovanny medeiros MD PCP: Dr. Jocelin Saunders DO Status: REG CLI Study: Chest PA and Lateral Date of Exam: 07/03/22 Exam# [id number] Ordering Dr: Sawyer Delgado MD STUDY: X-RAY [...] Signed: Jeovanny Swan MD at 11:09 EST Reading Location ID and State: [address] [place] [address] , Service support , CC: Dr. Jocelin Saunders DO; Dr. Sawyer Delgado MD Travel Money Advisor: Signed Sawyer Delgado Work Phone: Start: 06-11-2022 End: 06-11-2022 Procedure Note: See Note; NOTES: [facility] [address] [place] [address] OFFICE VISIT Date of Service: 06/11/22 1259 MR#: [id number] Acct: [id number] Name: FREDERIC OVALLES Rep #: [id number] : 1960 From: Sawyer Delgado MD Age/Sex: 61/M Location: [facility] Status: Signed HPI Subjective Date of Service [...] neoplasm. The flow cytometry analysis report from [employer] is reviewable in the patient???s EMR. BONE [...] and megakaryocytes. ADDENDUM FISH BCR/ABL1 REPORT FROM [employer] INTERPRETATION: BCR/ABL gene rearrangement is detected. 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 Then was seen at [place] emergency room June 03, 2022 with increasing dyspnea and was found to have bilateral pleural effusions more on the right. After thoracocentesis June 04, 2022 feels back to normal. [facility] Medical History Atherosclerosis of coronary artery of [place] heart without angina pectoris Encounter for screening [...] use well-balanced diet: about half the time uyen/roman catholic: Amish seatbelt use: always do you feel safe [...] Confirmed 06/11/22] benzonatate 100 mg capsule (Tessalon Perles) 100 [...] no focal motor deficits Coordination / Balance: voqhno-jv-bekt test normal Speech: speech normal Gait (Neuro): [...] and then May 2022 he developed 2 viral illnesses, then developed increasing shortness of breath and [...] impression and plan discussed. Sawyer Delgado MD Production Staff Worker, [facility] Divisions of Medical Oncology Hematology Department of Internal Medicine [place] [phone] This note was generated using a voice [...] 2 View Procedure Note: See Note; NOTES: [facility] Imaging Services [address] [place] [address] Chest Insp/Exp 2 View MR#: [id number] Acct: [id number] Name: FREDERIC OVALLES Rep #: [id number] : 1960 61 From: Jeovanny medeiros MD PCP: Dr. Jocelin Saunders DO Status: REG ER Study: Chest Insp/Exp 2 View Date of Exam: 06/04/22 Exam# [id number] Ordering Dr: Jeovanny Swan STUDY: X-RAY CHEST [...] Jeovanny Swan MD at 11:07 EST , CC: Dr. Jeovanny Swan MD; Dr. Jocelin Saunders DO Travel Money Advisor: Signed Jocelin Saunders DO Work Phone: Start: 06-04-2022 Plain chest X-ray Dr. Jocelin Saunders Work Phone: Start: 06-04-2022 End: 06-04-2022 Emergency Department Summary Procedure Note: See Note; NOTES: [facility] Medical Records Department [address] [place] [address] Emergency Department Summary 06/04/22 MR#: [id number] Acct: [id number] Name: FREDERIC OVALLES Rep #: [id number] : 1960 61 From: Hermes Kent MD PCP: Dr. Jocelin Saunders DO Status:REG ER [...] him too. He denies any new symptoms. [facility] Medical History Atherosclerosis of coronary artery of [place] heart without angina pectoris Encounter for screening [...] Taken Unknown] benzonatate 100 mg capsule (Tessalon Perles) 100 [...] artery stent placement (01/20/17) Status post laparoscopic Mgiue fundoplication (10/15/18) Social History household members: spouse [...] use well-balanced diet: about half the time uyen/roman catholic: Amish seatbelt use: always do you feel safe [...] Bilateral pleural effusion, Chronic myeloid leukemia Instructions: DIOGO RN Thoracentesis Dc Prescriptions: No Action carvedilol [...] PRN (Reason: Nausea/Emesis) Qty: 30 6RF omega 5-ydo-geh-fish oil 500 MG capsule,delayed release(DR/EC) 1 cap [...] your Primary Care Provider. Call [facility] ([phone]) or report to the closest Emergency Room. Call 911 if necessary. 06/04/22 1520 <Electronically signed by Hermes Kent MD> Cosigner Signature (if applicable): CC: Dr. John Brooks DO; Dr. Jocelin Saunders DO; Dr. Sawyer Delgado MD Signed Jocelin Saunders DO Work Phone: Start: 06-04-2022 End: 06-04-2022 Thoracentesis W US Procedure Note: See Note; NOTES: [facility] Imaging Services [address] [place] [address] Thoracentesis W US MR#: [id number] Acct: [id number] Name: FREDERIC OVALLES Alyx Rep #: [id number] : 1960 M 61 From: Jeovanny medeiros MD PCP: Dr. Jocelin Saunders DO Status: REG ER Study: Thoracentesis W US Date of Exam: 06/04/22 Exam# [id number] Ordering Dr: Hermes Kent MD PROCEDURE: ULTRASOUND [...] local anesthesia. Under ultrasound guidance, a 5 Fijian thoracentesis needle/catheter system was advanced into the [...] Signed: Jeovanny Swan MD at 11:08 EST Reading Location ID and State: [address] [place] [address] , Service support , CC: Dr. Hermes Kent MD; Dr. Jocelin Saunders DO Travel Money Advisor: Signed Jocelin Saunders DO Work Phone: Start: 06-04-2022 Ultrasonic guidance for thoracentesis Dr. Jocelin Saunders Work Phone: Start: 06-03-2022 End: 06-05-2022 Procedure Note: See Note; NOTES: [facility] Cardiovascular Services [address] [place] [address] 12 Lead EKG 06/03/22 0847 MR#: [id number] Acct: [id number] Name: FREDERIC OVALLES Rep #: [id number] : 1960 61 From: Hector Hsu MD [...] Low voltage QRS Borderline ECG Confirmed by SHADI HICKS, HECTOR ([id number]), city editor RULA VAZQUEZ ([id number]) on 06/05/2022 11:17:22 AM Referred By: Confirmed By:HECTOR HSU MD 06/05/221116 Date Hector Hsu MD CC: Dr. Hermes Kent MD; Dr. Jocelin Saunders DO Signed Jocelin Saunders DO Work Phone: Start: 06-03-2022 End: 06-03-2022 Emergency Department Summary Procedure Note: See Note; NOTES: [facility] Medical Records Department [address] [place] [address] Emergency Department Summary 06/03/22 MR#: [id number] Acct: [id number] Name: FREDERIC OVALLES Rep #: [id number] : 1960 61 From: Hermes Kent MD [...] dyspneic. He has a history of an AL remotely, he takes aspirin no other blood thinning medications, and he does not have a history of chronic lung disease although he continues to smoke. [facility] Medical History Atherosclerosis of coronary artery of [place] heart without angina pectoris Encounter for screening [...] Last Taken Unknown] benzonatate 100 mg capsule (Benito Lipscomb) 100 mg PO BID PRN cough [...] use well-balanced diet: about half the time uyen/roman catholic: Amish seatbelt use: always do you feel safe [...] 70.8 H Lymph % (Auto) 13.6 L [place] % (Auto) 10.1 H Eos % (Auto) [...] Color Urine Clarity Urine pH Ur Specific Temple Urine Protein Urine Glucose (UA) Urine Ketones Urine Occult Blood Urine Nitrite Urine Bilirubin Urine Urobilinogen Ur Leukocyte Esterase Urine RBC Urine WBC Ur Squamous Epith Cells Urine Bacteria Urine Mucus 06/03/22 06/03/22 08:51 09:14 WBC RBC Hgb Hct MCV MCH MCHC RDW Std Deviation RDW Coeff of Zayra Plt Count MPV Immature Gran % (Auto) Neut % (Auto) Lymph % (Auto) [place] % (Auto) Eos % (Auto) Baso % (Auto) Absolute Neuts (auto) Absolute Lymphs (auto) Nucleated RBC % Sodium Potassium Chloride Carbon Dioxide Anion Gap BUN Creatinine Estim Creat Clear Calc Est GFR (MDRD) Af Amer Est GFR (MDRD) Non-Af BUN/Creatinine Ratio Glucose Lactic Acid 1.3 Calcium Troponin I High Sens B-Natriuretic Peptide Urine Color Yellow Urine Clarity Clear Urine pH 7.0 Ur Specific Temple 1.010 Urine Protein 15 H Urine Glucose [...] Signed: Ezra Darnell MD at 10:43 EST , Abdomen/Pelvis CT 06/03/22 08:08 IMPRESSION: 1. [...] Signed: Ezra Darnell MD at 10:36 EST , Rhythm Strip Rhythm Strip: Sinus Rhythm [...] PRN (Reason: Nausea/Emesis) Qty: 30 6RF omega 1-brt-nsj-fish oil 500 MG capsule,delayed release(DR/EC) 1 cap [...] your Primary Care Provider. Call [facility] ([phone]) or report to the closest Emergency Room. Call 911 if necessary. 06/03/22 1600 <Electronically signed by Hermes Kent MD> Ivone Signature (if applicable): CC: Dr. Jocelin Saunders DO Signed Jocelin Saunders DO Work Phone: Start: 06-03-2022 End: 06-03-2022 Abdomen/Pelvis W IV Cont ONLY Procedure Note: See Note ; NOTES: [facility] Imaging Services [address] [place] [address] Abdomen/Pelvis W IV Cont ONLY MR#: [id number] Acct: [id number] Name: FREDERIC OVALLES Rep #: [id number] : 1960 M 61 From: Ezra jiang MD PCP: Dr. Jocelin Saunders, DO Status: REG ER Study: Abdomen/Pelvis W IV Cont ONLY Date of Exam: Exam# [id number] Ordering Dr: Hermes Kent MD STUDY: CT ABDOMEN AND PELVIS WITH CONTRAST REASON FOR EXAM: Male, 61 years old. 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 Hermes Kent MD; Dr. Jocelin Saunders DO Travel Money Advisor: Signed Jocelin Saunders DO Work Phone: Start: 06-03-2022 Computed tomography of abdomen and pelvis with intravenous contrast Dr. Jocelin Saunders Work Phone: Start: 06-03-2022 CT angiography of chest with contrast Dr. Jocelin Saunders Work Phone: Start: 06-03-2022 End: 06-03-2022 CTA Chest W/WO Contrast Procedure Note: See Note; NOTES: [facility] Imaging Services [address] [place] [address] CTA Chest W/WO Contrast MR#: [id number] Acct: [id number] Name: FREDERIC OVALLES Rep #: [id number] : 1960 M 61 From: Ezra jiang MD PCP: Dr. Jocelin Saunders, Status: REG ER Study: CTA Chest W/WO Contrast Date of Exam: 06/03/22 Exam# [id number] Ordering Dr: Hermes Kent MD STUDY: CTA CHEST REASON FOR EXAM: Male, 61 years old. 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 Hermes Kent MD; Dr. Jocelin Saunders DO Travel Money Advisor: Signed Jocelin Saunders DO Work Phone: Start: 04-04-2022 End: 04-04-2022 Oncology Visit Report Procedure Note: See Note; NOTES: [facility] [address] [place] [address] OFFICE VISIT Date of Service: 04/04/22 1039 MR#: [id number] Acct: [id number] Name: FREDERIC OVALLES Rep #: [id number] : 1960 From: Sawyer Delgado MD Age/Sex: 61/M Location: [facility] Status: Signed HPI Subjective Date of Service [...] and megakaryocytes. ADDENDUM FISH BCR/ABL1 REPORT FROM [employer] INTERPRETATION: BCR/ABL gene rearrangement is detected. 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 Sawyer Delgado MD Production Staff Worker, [facility] Divisions of Medical Oncology Hematology Department of Internal Medicine [facility] [place] [address] This note was generated using a voice recognition system software. Although it was reviewed by the author prior to finalization, it may still contain incorrect words, spelling, and punctuation that were not noted when reviewing prior to saving. If a clinically significant typo or inaccurately typed phrase is noted, please notify the author. 04/04/22 4363 <Electronically signed by Sawyer Delgado MD> Date Sawyer Delgado MD [facility] Signature: Date (if applicable) CC: Dr. Jocelin Saunders, DO Jocelin Saunders DO Work Phone: Start: 02-09-2022 End: 02-09-2022 Cardiology Visit Report Comments: See Note; NOTES: [facility] [address] [place], [place] [address] OFFICE VISIT Date of Service: 02/09/22 MR#: [id number] Acct: [id number] Name: FREDERIC OVALLES Rep #: [id number] : 1960 Provider: Dr. Hector Hsu MD Age/Sex: 61/M Location: [facility] Status: Signed HPI HPI History [...] [History Confirmed 02/09/22] benzonatate 100 mg capsule (Tessalpatriica Perlamelie) 100 mg PO BID PRN cough #20 caps 03/18/21 [Rx Confirmed 02/09/22] doxycycline hyclate 100 mg tablet 100 mg PO BID #14 tabs 03/18/21 [Rx Confirmed 02/09/22] Ejection fraction %: 55 to 59 PFSH Medical History Atherosclerosis of coronary artery of [place] heart without angina pectoris Encounter for screening [...] use well-balanced diet: about half the time uyen/roman catholic: Amish seatbelt use: always do you feel safe [...] arise. 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 Status: Signed HPI Subjective Date of Service [...] and megakaryocytes. ADDENDUM FISH BCR/ABL1 REPORT FROM [employer] INTERPRETATION: BCR/ABL gene rearrangement is detected. RESULTS: BCR/ABL1 Normal Nuclei Positive Nuclei with Dual Fusion 3.33% 96.67% CYTOGENETICS REPORT FROM [employer] INTERPRETATION: Abnormal male karyotype was observed in [...] typically does not require any otc analgesia. [facility] Medical History Atherosclerosis of coronary artery of [place] heart without angina pectoris Encounter for screening [...] use well-balanced diet: about half the time uyen/roman catholic: Amish seatbelt use: always do you feel safe [...] 97 Oxygen Delivery Method room air Intake Operator Cavity Pump Required: No Is patient in pain?: No [...] #30 tab 05/05/20 [Rx Confirmed 12/27/21] omega 1-iix-twd-fish oil 1 cap PO DAILY 05/12/20 [History [...] 3 Months C92.10 Plan - Savi Rodriguez PHOTOCOMPOSITION KEYBOARD OPERATOR, PHOTOCOMPOSITION KEYBOARD OPERATOR-C: 61-year-old male who presented with with a [...] nausea continue to use ondansetron as needed. 12/27/213 <Electronically signed by Savi MONTALVO> Date Savi MONTALVO Cosigner Signature: Date (if applicable) CC: Dr. Jocelin Saunders, DO Jocelin Saunders DO Work Phone: Start: 11-22-2021 End: 11-22-2021 Oncology Visit Report Comments: See Note; NOTES: [facility] [address] [place] [address] OFFICE VISIT Date of Service: 11/22/211122 MR#: [id number] Acct: [id number] Name: FREDERIC OVALLES Rep #: [id number] : 1960 From: Sawyer Delgado MD Age/Sex: 61/M Location: [facility] Status: Signed HPI Subjective Date of Service [...] and megakaryocytes. ADDENDUM FISH BCR/ABL1 REPORT FROM [employer] INTERPRETATION: BCR/ABL gene rearrangement is detected. 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] Treatment: Dasatinib 100 mg daily April 28, 2020- [facility] Medical History Atherosclerosis of coronary artery of [place] heart without angina pectoris Encounter for screening [...] use well-balanced diet: about half the time uyen/roman catholic: Amish seatbelt use: always do you feel safe [...] 96 Oxygen Delivery Method simple mask Intake Operator Cavity Pump Required: No Accompanied by: Self Is patient [...] #30 tab 05/05/20 [Rx Confirmed 11/22/21] omega 3-wfw-sxg-fish oil 1 cap PO DAILY 05/12/20 [History [...] no focal motor deficits Coordination / Balance: xvbwkh-tk-gzpn test normal Speech: speech normal Gait (Neuro): [...] impression and plan discussed. Sawyer Delgado MD Production Staff Worker, [facility] Divisions of Medical Oncology Hematology Department of Internal Medicine [address] [address] This note was generated using a voice recognition system software. Although it was reviewed by the author prior to finalization, it may still contain incorrect words, spelling, and punctuation that were not noted when reviewing prior to saving. If a clinically significant typo or inaccurately typed phrase is noted, please notify the author. 11/22/21 1143 <Electronically signed by Sawyer Delgado MD> Date Sawyer Dlegado MD Cosigner Signature: Date (if applicable) CC: Jocelin Saunders DO Work Phone: Start: 09-06-2021 End: 09-06-2021 Carotid Duplex Ultrasound Comments: See Note; NOTES: [facility] Cardiovascular Services [address] [place] [address] Carotid Duplex Ultrasound 09/06/21 1106 MR#: [id number] Acct: [id number] Name: FREDERIC OVALLES Rep #: [id number] : 1960 61 From: Wolfgang Thompson MD Attending Dr: Dr. Hector Hsu MD Status: AAMIR LEE Ordering Dr: Hector Hsu MD Date: 09/06/21 Location: [facility] Sex: M C Admitted: Reason For Study: [...] the left vertebral artery. Procedure Carotid Duplex 83895. Exam performed in department. VL/Carotid Duplex Ultrasound [...] Referring Physician: JOCELIN SAUNDERS Performed By: Yoli Mayberry RDCS, RVT 09/06/21 1237 Date Wolfgang Thompson MD CC: Dr. Hector Hsu MD; Dr. Jocelin Saunders, DO Date Dictated: 09/06/21 1106 Date Transcribed: 09/06/21 1237 Travel Money Advisor: Signed Jocelin Saunders DO Work Phone: Start: 08-23-2021 End: 08-23-2021 Oncology Visit Report Comments: See Note; NOTES: [facility] [address] [address] OFFICE VISIT Date of Service: 08/23/21 1115 MR#: [id number] Acct: [id number] Name: FREDERIC OVALLES Rep #: [id number] : 1960 From: Sawyer Delgado MD Age/Sex: 61/M Location: [facility] Status: Signed HPI Subjective Date of Service [...] and megakaryocytes. ADDENDUM FISH BCR/ABL1 REPORT FROM [employer] INTERPRETATION: BCR/ABL gene rearrangement is detected. 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 Sawyer Delgado MD Production Staff Worker, [facility] Divisions of Medical Oncology Hematology Department of Internal Medicine [place] [address] This note was generated using a voice [...] Sawyer Delgado MD> Date Sawyer Delgado MD [facility] Signature: Date (if applicable) CC: Dr. Jocelin Saunders, DO Jocelin Saunders DO Work Phone: Start: 08-18-2021 End: 08-18-2021 Cardiology Visit Report Comments: See Note; NOTES: [facility] [address] [place] [address] OFFICE VISIT Date of Service: 08/18/21 MR#: [id number] Acct: [id number] Name: FREDERIC OVALLES Rep #: [id number] : 1960 Provider: Dr. Hector Hsu MD Age/Sex: 61/M Location: [facility] Status: Signed HPI HPI History [...] #30 tab 05/05/20 [Rx Confirmed 08/17/21] omega 1-tyf-hya-fish oil 1 cap PO DAILY 05/12/20 [History [...] Medical History Atherosclerosis of coronary artery of [place] heart without angina pectoris Encounter for screening [...] use well-balanced diet: about half the time uyen/roman catholic: Amish seatbelt use: always do you feel safe [...] updated, as necessary. 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 Jocelin Saunders DO Status: REG CLI Study: Low Dose CT Lung Screening Date of Exam: 05/30 Exam# [id number] Ordering Dr: Savi Rodriguez PHOTOCOMPOSITION KEYBOARD OPERATOR PHOTOCOMPOSITION KEYBOARD OPERATOR -C STUDY: LOW DOSE CT LUNG CANCER [...] CC: SELVIN Rodriguez; Dr. Jocelin Saunders DO Travel Money Advisor: Signed Jocelin Saunders DO Work Phone: Start: 05-30-2021 End: 05-30-2021 Oncology Visit Report Comments: See Note; NOTES: [facility] [address] [place] [address] OFFICE VISIT Date of Service: 05/30/21 1255 MR#: [id number] Acct: [id number] Name: FREDERIC OVALLES Rep #: [id number] : 1960 From: Savi Akers Age/Sex: 60/M Location: [facility] Status: Signed HPI HPI Reviewed eligibility criteria: [...] #30 tab 05/05/20 [Rx Confirmed 05/30/21] omega 9-cey-sqq-fish oil 1 cap PO DAILY 05/12/20 [History [...] (Updated 05/30/21 @ 13:14 by Savi Rodriguez PHOTOCOMPOSITION KEYBOARD OPERATOR, PHOTOCOMPOSITION KEYBOARD OPERATOR-C) Atherosclerosis of coronary artery of [place] heart without angina pectoris Encounter for screening [...] use well-balanced diet: about half the time uyen/roman catholic: Amish seatbelt use: always do you feel safe at home: Yes Assessment and Plan (No Qualifiers) Assessment and Plan (1) Encounter for screening for malignant neoplasm of lung in current smoker with 30 pack year history or greater: Status: Acute Plan - Savi Rodriguez PHOTOCOMPOSITION KEYBOARD OPERATOR, PHOTOCOMPOSITION KEYBOARD OPERATOR-C: 1. Per LUNG RADS category 2 a low-dose CT chest scan is recommended in 12 months. Patient is made aware images are subject to multidisciplinary review and if alternate recommendations for screening are advised, he/she will be contacted via phone. 2. Other findings: emphysema and coronary artery calcifications. These are not new findings. Advise routine follow-up with his PCP and dog food dough mixer. (2) Tobacco use disorder, continuous: Status: Acute Keanu Rodriguez PHOTOCOMPOSITION KEYBOARD OPERATOR, PHOTOCOMPOSITION KEYBOARD OPERATOR-C: A 11 minute, face to face discussion [...] in the precontemplation phase. Declined referral to [facility] tobacco cessation program. 05/30/21 1722 <Electronically signed by Savi MONTALVO> Date Savi MONTALVO Cosigner Signature: Date (if applicable) CC: Dr. Jocelin Saunders, DO Jocelin Saunders DO Work Phone: Start: 05-23-2021 End: 05-23-2021 Oncology Visit Report Comments: See Note; NOTES: [facility] [address] [place] [address] OFFICE VISIT Date of Service: 05/23/21 1419 MR#: [id number] Acct: [id number] Name: FREDERIC OVALLES Rep #: [id number] : 1960 From: Sawyer Delgado MD Age/Sex: 60/M Location: [facility] Status: Signed HPI Subjective Date of Service [...] and megakaryocytes. ADDENDUM FISH BCR/ABL1 REPORT FROM [employer] INTERPRETATION: BCR/ABL gene rearrangement is detected. 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] Treatment: Dasatinib 100 mg daily April 28, 2020- [facility] Medical History Atherosclerosis of coronary artery of [place] heart without angina pectoris Essential (primary) hypertension [...] artery stent placement (01/2017) Status post laparoscopic Imgue fundoplication (10/15/18) Family History Father Colon cancer [...] use well-balanced diet: about half the time uyen/roman catholic: Amish seatbelt use: always do you feel safe [...] 96 Oxygen Delivery Method simple mask Intake Operator Cavity Pump Required: No Accompanied by: Self Is patient [...] #30 tab 05/05/20 [Rx Confirmed 05/23/21] omega 2-ogi-anr-fish oil 1 cap PO DAILY 05/12/20 [History [...] no focal motor deficits Coordination / Balance: iyofyu-bj-owbk test normal Speech: speech normal Gait (Neuro): [...] impression and plan discussed. Sawyer Delgado MD Production Staff Worker, [facility] Divisions of Medical Oncology Hematology Department of Internal Medicine [place] [address] This note was generated using a voice recognition system software. Although it was reviewed by the author prior to finalization, it may still contain incorrect words, spelling, and punctuation that were not noted when reviewing prior to saving. If a clinically significant typo or inaccurately typed phrase is noted, please notify the author. 05/23/21 0049 <Electronically signed by Sawyer Delgado MD> Date Sawyer Delgado MD Cosigner Signature: Date (if applicable) CC: Dr. Jocelin Saunders, DO Jocelin Saunders DO Work Phone: Start: 04-03-2021 End: 04-03-2021 Oncology Visit Report Comments: See Note; NOTES: [facility] [place] [address] [address] [place] [address] OFFICE VISIT Date of Service: 04/03/21 1055 MR#: [id number] Acct: [id number] Name: FREDERIC OVALLES Rep #: [id number] : 1960 From: Savi Rodriguez NP PHOTOCOMPOSITION KEYBOARD OPERATOR -C Age/Sex: 60/M Location: [facility] Status: Signed HPI Subjective Date of Service [...] and megakaryocytes. ADDENDUM FISH BCR/ABL1 REPORT FROM [employer] INTERPRETATION: BCR/ABL gene rearrangement is detected. 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 He presented to [facility] ED with CP on 03/17/21. CP found to be pleuritic, WBC 13 but ? RLL infiltrate.COVID rapid negative. Discharged home with Rx for doxycycline. States completed antibiotic therapy as advised. Vastly improved however admits to continuation of infrequent nonproductive cough. Patient was encouraged to follow up with oncology d/t mild leukocytosis. Reports good tolerance and good adherence with dasatinib. [facility] Medical History Atherosclerosis of coronary artery of [place] heart without angina pectoris Essential (primary) hypertension [...] use well-balanced diet: about half the time uyen/roman catholic: Amish seatbelt use: always do you feel safe [...] 95 Oxygen Delivery Method room air Intake Operator Cavity Pump Required: No Accompanied by: Self Is patient in pain?: Yes (cough starated 9-4-21) Pain scale (1-10): 9 Allergies No Known [...] #30 tab 05/05/20 [Rx Confirmed 04/03/21] omega 1-ufy-gcu-fish oil 1 cap PO DAILY 05/12/20 [History [...] leukemia: Status: Chronic Plan - Savi Rodriguez PHOTOCOMPOSITION KEYBOARD OPERATOR, PHOTOCOMPOSITION KEYBOARD OPERATOR-C: 60-year-old male who presented with with a [...] 05/23/21. 04/03/21 1145 <Electronically signed by Savi Rodriguez NP, NP-C> Date Savi MONTALVO Cosigner Signature: Date (if applicable) CC: Dr. Jocelin Saunders, DO Jocelin Saunders DO Work Phone: Start: 03-17-2021 End: 03-18-2021 Emergency Department Summary Comments: See Note; NOTES: [facility] Medical Records Department [address] [place] [address] Emergency Department Summary 03/17/21 MR#: [id number] Acct: [id number] Name: FREDERIC OVALLES Rep #: [id number] : 1960 60 From: Edwina Meeks DO [...] as coronary artery disease status post stents. [facility] Medical History (Updated 03/18/21 @ 01:[address] Edwina Meeks DO) Atherosclerosis of coronary artery of [place] heart without angina pectoris Essential (primary) hypertension [...] tab 05/05/20 [Rx Last Taken Unknown] omega 5-fps-dkl-fish oil 1 cap PO DAILY 05/12/20 [History [...] use well-balanced diet: about half the time uyen/roman catholic: Amish seatbelt use: always do you feel safe [...] negative. Patient will follow up with his foster care worker for his leukocytosis as well as his PCP. He is counseled on return precautions. He verbalizes agreement understanding this plan. He is instructed to take NSAIDs as needed for chest pain as well as per given a prescription for Tessalon Perles to help with his cough. He [...] (Auto) 67.7 Lymph % (Auto) 17.9 L [place] % (Auto) 10.2 H Eos % (Auto) [...] (Auto) Neut % (Auto) Lymph % (Auto) [place] % (Auto) Eos % (Auto) Baso % [...] (Reason: Nausea/Emesis) Qty: 30 RF: 6 omega 9-kyu-rug-fish oil 500 MG capsule,delayed release(DR/EC) 1 cap [...] you for pneumonia today. You can take kyea-nay-fpdmisq ibuprofen as needed for the pain. Do not take more than what is recommended on the bottle. Disposition Disposition: Home, Self Care What to do if you have Problems For any increased pain, shortness of breath, bleeding, nausea or vomiting, chest pain, or any unexpected problems, contact your Primary Care Provider. Call [facility] ([phone]) or report to the closest Emergency Room. Call 911 if necessary. 03/18/21 0104 <Electronically signed by Edwina Meeks DO> Cosigner Signature (if applicable): CC: Dr. Jocelin Saunders DO Signed Jocelin Saunders DO Work Phone: Start: 03-17-2021 End: 03-17-2021 Chest 1 View (Portable) Comments: See Note; NOTES: [facility] Imaging Services [address] [place] [address] Chest 1 View (Portable) MR#: [id number] Acct: [id number] Name: FREDERIC OVALLES Rep #: [id number] : 1960 M 60 From: Jesus Benito MD PCP: Dr. Jocelin Saunders DO Status: PRE ER Study: Chest 1 View (Portable) Date of Exam: 03/17/21 Exam# [id number] Ordering Dr: Edwina Meeks DO STUDY: X-RAY [...] Edwina Meeks DO; Dr. Jocelin Saunders DO Travel Money Advisor: Signed Jocelin Saunders DO Work Phone: Start: 03-17-2021 End: 03-20-2021 12 Lead EKG Comments: See Note; NOTES: [facility] Cardiovascular Services [address] [place] [address] 12 Lead EKG 03/17/212122 MR#: [id number] Acct: [id number] Name: FREDERIC OVALLES Rep #: [id number] : 1960 60 From: Hector Hsu MD Attending Dr: Status: DEP ER Ordering Dr: Provider,Ed P. Date: 03/17/21 Location: ED Sex: M [...] Low voltage QRS Borderline ECG Confirmed by SHADI HICKS, HECTOR ([id number]), city editor RULA VAZQUEZ ([id number]) on 03/20/2021 12:54:59 PM Referred By: DR YOUNGER Confirmed By:HECTOR HSU MD 03/20/21 1254 Date Hector Hsu MD CC: Dr. Edwina Meeks DO; Dr. Jocelin Saunders DO; ED PHYSICIAN PROVIDER Signed Jocelin Saunders DO Work Phone: Start: 02-22-2021 End: 02-22-2021 Oncology Visit Report Comments: See Note; NOTES: [facility] [address] [address] OFFICE VISIT Date of Service: 02/22/21 1356 MR#: [id number] Acct: [id number] Name: FREDERIC OVALLES Rep #: [id number] : 1960 From: Sawyer Delgado MD Age/Sex: 60/M Location: [facility] Status: Signed HPI Subjective Date of Service [...] and megakaryocytes. ADDENDUM FISH BCR/ABL1 REPORT FROM [employer] INTERPRETATION: BCR/ABL gene rearrangement is detected. 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] Treatment: Dasatinib 100 mg daily April 28, 2020- [facility] Medical History Atherosclerosis of coronary artery of [place] heart without angina pectoris Essential (primary) hypertension [...] use well-balanced diet: about half the time uyen/roman catholic: Amish seatbelt use: always do you feel safe [...] 93 Oxygen Delivery Method room air Intake Operator Cavity Pump Required: No Accompanied by: Self Is patient [...] #30 tab 05/05/20 [Rx Confirmed 02/22/21] omega 9-ktw-mtt-fish oil 1 cap PO DAILY 05/12/20 [History Confirmed 02/22/21] dasatinib 100 mg PO DAILY 07/13/20 [History Confirmed 02/22/21] vitamin E 200 unit PO DAILY 08/25/20 [History Confirmed 02/22/21] Central Venous Access Central Venous Access: No RUN DATE: 02/22/21 [facility], DEPARTMENT OF LABORATORIES PAGE 1 RUN TIME: 1409 Specimen Inquiry [address] [place], [address] PATIENT: FREDERIC OVALLES LOC: ONC U #: [id number] : 1960 AGE/SX: 60/M FACILITY: [facility] ROOM: RE02/08/[address]: Rigoberto Langford STATUS:REG RCR BED: DIS: SPEC #: [id number] ISAAC: 02/08/21 STATUS: COMP REQ #: [id number] RECD: 02/08/[address]: Dr. Sawyer Delgado MD ENTERED: 02/08/[address]: QUERIES: Comments: # [id number] BCR/ABL Test(s) Ordered: [id number] BCR/ABL GREEN SHEP WB RT Test Result Flag Adult Reference Range [facility] [place] TEST RESULT UNITS REF INTERVAL BCR-ABL1, CML/ALL, PCR, Quant e13a2 (b2a2) transcript 0.0310 % e14a2 (b3a2) transcript % <0.0032 % e1a2 transcript 01 % <0.0032 % Interpretation: Positive POSITIVE for the BCR-ABL1 e13a2 (b2a2, p210) fusion transcript. Director Review Christopher Mckeon, PhD, FAC Director, Molecular Oncology [facility] [place] [address] Background This assay can detect three different [...] developed and its performance characteristics determined by [facility]. It has not been cleared or approved by the Food and Drug Administration. TESTING PERFORMED AT [facility]. ORIGINAL REPORT ON FILE IN LAB [...] and moves all extremities Coordination / Balance: odrddm-sc-ehog test normal Speech: speech normal Gait (Neuro): [...] impression and plan discussed. Sawyer Delgado MD Production Staff Worker, [facility] Divisions of Medical Oncology Hematology Department of Internal Medicine [place] [address] This note was generated using a voice recognition system software. Although it was reviewed by the author prior to finalization, it may still contain incorrect words, spelling, and punctuation that were not noted when reviewing prior to saving. If a clinically significant typo or inaccurately typed phrase is noted, please notify the author. 02/22/21 7742 <Electronically signed by Sawyer Delgado MD> Date Sawyer Delgado MD Cosigner Signature: Date (if applicable) CC: Dr. Jocelin Saunders, DO Jocelin Saunders DO Work Phone: Start: 12-28-2020 End: 12-28-2020 Stress Report Comments: See Note; NOTES: [facility] Cardiovascular Services [address] [place] [address] MR#: [id number] Acct: [id number] Name: FREDERIC OVALLES Rep #: [id number] : 1960 60 From: Hector Hsu MD Primary Care: Dr. Jocelin Saunders, DO Status: REG CLI Referring Dr: Hector [...] CC: Dr. Hector Hsu MD; Dr. Jocelin Saunders, Date Dictated: 12/28/201732 Date Transcribed: 12/28/201732 Travel Money Advisor: [place] Signed Jocelin Saunders DO Work Phone: Start: 12-16-2020 End: 12-16-2020 Cardiology Visit Report Comments: See Note; NOTES: [facility] [address] [place] [address] OFFICE VISIT Date of Service: 12/16/20 MR#: [id number] Acct: [id number] Name: FREDERIC OVALLES Rep #: [id number] : 1960 Provider: Dr. Hector Hsu MD Age/Sex: 60/M Location: [facility] Status: Signed HPI HPI History [...] #30 tab 05/05/20 [Rx Confirmed 12/16/20] omega 8-noj-upl-fish oil 1 cap PO DAILY 05/12/20 [History Confirmed 12/16/20] dasatinib 100 mg PO DAILY 07/13/20 [History Confirmed 12/16/20] vitamin E 200 unit PO DAILY 08/25/20 [History Confirmed 12/16/20] Ejection fraction %: 55 to 59 PFSH Medical History Atherosclerosis of coronary artery of [place] heart without angina pectoris Essential (primary) hypertension [...] use well-balanced diet: about half the time uyen/roman catholic: Amish seatbelt use: always do you feel safe [...] coronary artery stent placement: Status: Resolved Comment: DYC-MBS-Mebf LAD 4.0 x 20 mm Synergy, NICA-Mid [...] updated, as necessary. 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 Status: Signed HPI Subjective Date of Service [...] neoplasm. The flow cytometry analysis report from [employer] is reviewable in the patient???s EMR. BONE [...] and megakaryocytes. ADDENDUM FISH BCR/ABL1 REPORT FROM [facility] INTERPRETATION: BCR/ABL gene rearrangement is detected. RESULTS: BCR/ABL1 Normal Nuclei Positive Nuclei with Dual Fusion 3.33% 96.67% CYTOGENETICS REPORT FROM [facility] INTERPRETATION: Abnormal male karyotype was observed in twenty metaphases analyzed. 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] Treatment: Dasatinib 100 mg daily April 28, 2020- [facility] Medical History Atherosclerosis of coronary artery of [place] heart without angina pectoris Essential (primary) hypertension [...] use well-balanced diet: about half the time uyen/roman catholic: Amish seatbelt use: always do you feel safe [...] 95 Oxygen Delivery Method room air Intake Operator Cavity Pump Required: No Accompanied by: Self Is patient [...] #30 tab 05/05/20 [Rx Confirmed 11/24/20] omega 6-bxi-ijs-fish oil 1 cap PO DAILY 05/12/20 [History [...] and moves all extremities Coordination / Balance: gabodd-ur-ypih test normal Speech: speech normal Gait (Neuro): [...] impression and plan discussed. Sawyer Delgado MD Production Staff Worker, [facility] Divisions of Medical Oncology Hematology Department of Internal Medicine [facility] [place] [phone] This note was generated using a voice recognition system software. Although it was reviewed by the author prior to finalization, it may still contain incorrect words, spelling, and punctuation that were not noted when reviewing prior to saving. If a clinically significant typo or inaccurately typed phrase is noted, please notify the author. 11/24/20 1422 <Electronically signed by Sawyer Delgado MD> Date Sawyer Delgado MD Cosigner Signature: Date (if applicable) CC: Dr. Jocelin Saunders, DO Jocelin Saunders DO Work Phone: Start: 08-25-2020 End: 08-25-2020 Oncology Visit Report Comments: See Note; NOTES: [facility] [address] [place] [address] OFFICE VISIT Date of Service: 08/25/20 1312 MR#: [id number] Acct: [id number] Name: FREDERIC OVALLES Rep #: [id number] : 1960 From: Sawyer Delgado MD Age/Sex: [...] and megakaryocytes. ADDENDUM FISH BCR/ABL1 REPORT FROM [facility] INTERPRETATION: BCR/ABL gene rearrangement is detected. RESULTS: BCR/ABL1 Normal Nuclei Positive Nuclei with Dual Fusion 3.33% 96.67% CYTOGENETICS REPORT FROM [facility] INTERPRETATION: Abnormal male karyotype was observed in [...] Absolute Neuts (auto) 3.3 RUN DATE: 08/25/20 [facility], DEPARTMENT OF LABORATORIES PAGE 1 RUN TIME: 1347 Specimen Inquiry [address] [place], [place], [id number] PATIENT: FREDERIC OVALLES LOC: OMD U #: [id number] : 1960 AGE/SX: 60/M FACILITY: [facility] ROOM: RE08/25/[address]: Rigoberto Langford STATUS: REG [facility] BED: DIS: SPEC #: [id number] ISAAC: 08/10/20 STATUS: COMP REQ #: [id number] RECD: 08/10/[address] [facility] [address]: Savi Rodriguez, PHOTOCOMPOSITION KEYBOARD OPERATOR-C ENTERED: 08/10/[address] [facility] [address]: Dr. Jocelin Saunders, DO Dr. Sawyer Delgado MD QUERIES: Comments: BCR ABL - LC# [id number] BCR-ABL GREEN SHEP RT WB Test(s) Ordered: [id number] BCR-ABL GREEN SHEP RT WB Test Result Flag Adult Reference Range [facility] [place] TEST TEST RESULT LIMITS BCR-ABL1, CML/ALL, PCR, Quant e13a2 (b2a2) transcript 0.3342 % e14a2 (b3a2) transcript % <0.0032 % e1a2 transcript % <0.0032 % Interpretation: Positive POSITIVE for the BCR-ABL1 e13a2 (b2a2, p210) fusion transcript. Director Review Dayan Davila, PhD, [facility] Director, Molecular Genetics [facility] Pathology [place], [place] Background This assay can detect three [...] impression and plan discussed. Sawyer Delgado MD Production Staff Worker, [facility] Divisions of Medical Oncology Hematology Department of Internal Medicine [place] [address] This note was generated using a voice [...] PO Q8H PRN PRN #30 tab 05/05/20 [place]-3 Fatty Acids [Fish Oil] 1 cap PO DAILY 05/12/20 Dasatinib [Sprycel] 100 mg PO DAILY 07/13/20 Vitamin E 200 unit PO DAILY 08/25/20 Primary Care Provider: Dr. Jocelin Saunders DO Referring Provider: Dr. Jocelin Saunders DO 08/25/20 3480 <Electronically signed by Sawyer Delgado MD> Date Sawyer Delgado MD Cosigner Signature: Date (if applicable) CC: DO Jocelin Wiseman Start: 07-13-2020 End: 07-13-2020 Oncology Visit Report Comments: See Note; NOTES: [facility] [address] [address] OFFICE VISIT Date of Service: 07/13/20 1222 MR#: [id number] Acct: [id number] Name: FREDERIC OVALLES Rep #: [id number] : 1960 From: Savi ZarateC Age/Sex: 60/M Location: [facility] Status: Signed Subjective [...] neoplasm. The flow cytometry analysis report from [employer] is reviewable in the patient???s EMR. BONE [...] Dual Fusion 3.33% 96.67% CYTOGENETICS REPORT FROM [facility] INTERPRETATION: Abnormal male karyotype was observed in [...] % Lymph % (Auto) 28.9 (19-41) % [place] % (Auto) 7.5 (0-10) % Eos % [...] BCR/ABL due July 2020. Savi Rodriguez, MSN, CORPORATE TRAVEL MANAGER-C, AOCNP Medications: Prescriptions This Visit Medication Instructions Recorded Ascorbic Acid [Vitamin C] 1,000 mg PO DAILY 04/05/20 Vitamin E 200 unit PO DAILY 04/05/20 Ondansetron [Zofran] 8 mg PO Q8H PRN PRN #30 tab 05/05/20 [place]-3 Fatty Acids [Fish Oil] 1 cap PO DAILY 05/12/20 Dasatinib [Sprycel] 100 mg PO DAILY 07/13/20 Primary Care Provider: Dr. Jocelin Saunders DO Referring Provider: Dr. Jocelin Saunders DO - Problem List (1) Chronic myeloid leukemia Status: Chronic 07/13/20 1226 <Electronically signed by Savi Rodriguez NP PHOTOCOMPOSITION KEYBOARD OPERATOR-C> Date Savi Rodriguez NP PHOTOCOMPOSITION KEYBOARD OPERATOR-C Cosigner Signature: Date (if applicable) CC: Jocelin Saunders Start: 06-15-2020 End: 06-15-2020 Oncology Visit Report Comments: See Note; NOTES: [facility] [address] [place] [address] OFFICE VISIT Date of Service: 06/15/20 1343 MR#: [id number] Acct: [id number] Name: FREDERIC OVALLES Rep #: [id number] : 1960 From: Sawyer Delgado MD Age/Sex: [...] neoplasm. The flow cytometry analysis report from [employer] is reviewable in the patient???s EMR. BONE [...] and megakaryocytes. ADDENDUM FISH BCR/ABL1 REPORT FROM [facility] INTERPRETATION: BCR/ABL gene rearrangement is detected. RESULTS: BCR/ABL1 Normal Nuclei Positive Nuclei with Dual Fusion 3.33% 96.67% CYTOGENETICS REPORT FROM [facility] INTERPRETATION: Abnormal male karyotype was observed in [...] % Lymph % (Auto) 26.0 (19-41) % [place] % (Auto) 8.3 (0-10) % Eos % [...] impression and plan discussed. Sawyer Delgado MD Production Staff Worker, [facility] Divisions of Medical Oncology Hematology Department of Internal Medicine [place] [address] This note was generated using a voice [...] PO Q8H PRN PRN #30 tab 05/05/20 [place]-3 Fatty Acids [Fish Oil] 1 cap PO DAILY 05/12/20 Primary Care Provider: Dr. Jocelin Saunders DO Referring Provider: Dr. Jocelin Saunders DO 06/15/20 1403 <Electronically signed by Sawyer Delgado MD> Date Sawyer Delgado MD Cosigner Signature: Date (if applicable) CC: DO Jocelin Wiseman Start: 06-01-2020 End: 06-01-2020 Oncology Visit Report Comments: See Note; NOTES: [facility] [address] [address] OFFICE VISIT Date of Service: 06/01/20 1433 MR#: [id number] Acct: [id number] Name: FREDERIC OVALLES Rep #: [id number] : 1960 From: Sawyer Delgado MD Age/Sex: [...] neoplasm. The flow cytometry analysis report from [employer] is reviewable in the patient???s EMR. BONE [...] and megakaryocytes. ADDENDUM FISH BCR/ABL1 REPORT FROM [facility] INTERPRETATION: BCR/ABL gene rearrangement is detected. RESULTS: BCR/ABL1 Normal Nuclei Positive Nuclei with Dual Fusion 3.33% 96.67% CYTOGENETICS REPORT FROM [facility] INTERPRETATION: Abnormal male karyotype was observed in [...] % Lymph % (Auto) 29.8 (19-41) % [place] % (Auto) 10.0 (0-10) % Eos % [...] impression and plan discussed. Sawyer Delgado MD Production Staff Worker, [facility] Divisions of Medical Oncology Hematology Department of Internal Medicine [place] [address] This note was generated using a voice [...] PO Q8H PRN PRN #30 tab 05/05/20 [place]-3 Fatty Acids [Fish Oil] 1 cap PO DAILY 05/12/20 Primary Care Provider: Dr. Jocelin Saunders DO Referring Provider: Dr. Jocelin Saunders DO 06/01/20 3161 <Electronically signed by Sawyer Delgado MD> Date Sawyer Delgado MD Cosigner Signature: Date (if applicable) CC: Jocelin Puja Start: 05-25-2020 End: 05-25-2020 Oncology Visit Report Comments: See Note; NOTES: [facility] [address] [place] [address] OFFICE VISIT Date of Service: 05/25/20 1045 MR#: [id number] Acct: [id number] Name: FREDERIC OVALLES Rep #: [id number] : 1960 From: Sawyer Delgado MD Age/Sex: [...] and megakaryocytes. ADDENDUM FISH BCR/ABL1 REPORT FROM [facility] INTERPRETATION: BCR/ABL gene rearrangement is detected. RESULTS: BCR/ABL1 Normal Nuclei Positive Nuclei with Dual Fusion 3.33% 96.67% CYTOGENETICS REPORT FROM [facility] INTERPRETATION: Abnormal male karyotype was observed in [...] chest April 2020 okay. Patient was seen , impression and plan discussed. Sawyer Delgado MD Production Staff Worker, [facility] Divisions of Medical Oncology Hematology Department of Internal Medicine [place] [address] This note was generated using a voice [...] PO Q8H PRN PRN #30 tab 05/05/20 [place]-3 Fatty Acids [Fish Oil] 1 cap PO DAILY 05/12/20 Primary Care Provider: Dr. Jocelin Saunders DO Referring Provider: Dr. Jocelin Saunders DO 05/25/20 1138 <Electronically signed by Sawyer Delgado MD> Date Sawyer Delgado MD Cosigner Signature: Date (if applicable) CC: Jocelin Saunders Start: 05-20-2020 End: 05-20-2020 Cardiology Visit Report Comments: See Note; NOTES: [facility] [address] [place] [address] OFFICE VISIT Date of Service: 05/20/20 MR#: [id number] Acct: [id number] Name: FREEDRIC OVALLES Rep #: [id number] : 1960 Provider: Dr. Hector Hsu MD Age/Sex: 59/M Location: [facility] Status: Signed HPI HPI History [...] PRN #30 tab 05/05/20 [Rx Confirmed 05/20/20] [place]-3 Fatty Acids [Fish Oil] 1 cap PO DAILY 05/12/20 [History Confirmed 05/20/20] Ejection fraction %: 55 to 59 PFSH Medical History Atherosclerosis of coronary artery of [place] heart without angina pectoris (Chronic) History of [...] normal affect Assessment Plan 1. Atherosclerosis of [place] coronary artery of [place] heart without angina pectoris I25.10 Plan He [...] Hsu MD Referrals: Cardiology Savi Rodriguez NP, NP-C 2. Chronic myeloid leukemia C92.10 Plan He [...] Today Dr. Hector Hsu MD Referrals: Cardiology SHAILESH Duckworth NPC 3. Essential (primary) hypertension I10 Plan He does have a history of hypertension which is well controlled on his current medical therapy and I would not recommend we make any changes. Orders Orders: 12 Lead EKG performed by [facility] Today Dr. Hector Hsu MD Referrals: Cardiology Savi Rodriguez NP, NP-C 4. 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) Coding Level of Care Code Off vis,new,level 4 Diagnoses Atherosclerosis of [place] coronary artery of [place] heart without angina pectoris I25.10 ?Coronary Disease-Associated Artery/Lesion type: [place] artery Chronic myeloid leukemia C92.10 Essential (primary) hypertension I10 Pure hypercholesterolemia E78.00 ?Hyperlipidemia type: pure hypercholesterolemia Coding Level of Care Code Off vis,new,level 4 Diagnoses Atherosclerosis of [place] coronary artery of [place] heart without angina pectoris I25.10 ?Coronary Disease-Associated Artery/Lesion type: [place] artery Chronic myeloid leukemia C92.10 Essential (primary) hypertension I10 Pure hypercholesterolemia E78.00 ?Hyperlipidemia type: pure hypercholesterolemia Supplemental Info Supplemental Information Diagnostics Electrocardiogram 04/20/20 Echocardiogram 04/20/20 05/20/20 1222 <Electronically signed by Hector Hsu MD> Date Hector Hsu MD Cosigner Signature: Date (if applicable) CC: Dr. Jocelin Saunders, DO; MD Jocelin Langford Start: 05-19-2020 End: 05-19-2020 Oncology Visit Report Comments: See Note; NOTES: [facility] [address] [place] [address] OFFICE VISIT Date of Service: 05/19/20 1438 MR#: [id number] Acct: [id number] Name: FREDERIC OVALLES Rep #: [id number] : 1960 From: Sawyer Delgado MD Age/Sex: [...] neoplasm. The flow cytometry analysis report from [employer] is reviewable in the patient???s EMR. BONE [...] and megakaryocytes. ADDENDUM FISH BCR/ABL1 REPORT FROM [facility] INTERPRETATION: BCR/ABL gene rearrangement is detected. RESULTS: BCR/ABL1 Normal Nuclei Positive Nuclei with Dual Fusion 3.33% 96.67% CYTOGENETICS REPORT FROM [facility] INTERPRETATION: Abnormal male karyotype was observed in [...] % Lymph % (Auto) 22.5 (19-41) % [place] % (Auto) 8.2 (0-10) % Eos % [...] impression and plan discussed. Sawyer Delgado MD Production Staff Worker, [facility] Divisions of Medical Oncology Hematology Department of Internal Medicine [place] [address] [address] This note was generated using a voice [...] PO Q8H PRN PRN #30 tab 05/05/20 [place]-3 Fatty Acids [Fish Oil] 1 cap PO DAILY 05/12/20 Primary Care Provider: Dr. Jocelin Saunders DO Referring Provider: Dr. Jocelin Saunders DO 05/19/20 1450 <Electronically signed by Sawyer Delgado MD> Date Sawyer Delgado MD Cosigner Signature: Date (if applicable) CC: Jocelin Saunders Start: 05-17-2020 End: 05-17-[address] Lung Screening Comments: See Note; NOTES: [facility] Imaging Services [address] [place] [address] Lung Screening MR#: [id number] Acct: [id number] Name: FREDERIC OVALLES Rep #: [id number] : 1960 M 59 From: Jeoavnny medeiros MD PCP: Dr. Jocelin Saunders DO Status: [facility] Study: Low Dose CT Lung Screening Date of Exam: 05/17 Exam# [id number] Ordering Dr: Savi Rodriguez NP PHOTOCOMPOSITION KEYBOARD OPERATOR -C STUDY: LOW DOSE CT LUNG CANCER [...] CC: SELVIN Rodriguez; Dr. Jocelin Saunders DO Travel Money Advisor: Signed Jocelin Saunders Start: 05-17-2020 End: 05-17-2020 Oncology Visit Report Comments: See Note; NOTES: [facility] [address] [address] OFFICE VISIT Date of Service: 05/17/20 1358 MR#: [id number] Acct: [id number] Name: FREDERIC OVALLES Rep #: [id number] : 1960 From: Savi Rodriguez PHOTOCOMPOSITION KEYBOARD OPERATOR RADHA Akers Age/Sex: 59/M Location: [facility] Status: Signed HPI HPI Reviewed eligibility criteria: [...] No Known Allergies Allergy (Verified 05/17/20 14:00) [facility] Medical History (Reviewed 05/17/20 @ 14:02 by Savi Rodriguez PHOTOCOMPOSITION KEYBOARD OPERATOR, PHOTOCOMPOSITION KEYBOARD OPERATOR-C) Atherosclerosis of coronary artery of [place] heart without angina pectoris (Chronic) History of [...] 05/17/20 @ 17:07 by Savi Rodriguez NP, PHOTOCOMPOSITION KEYBOARD OPERATOR-C) Smoking Status: Current some day smoker Assessment [...] routine follow up with his pcp and dog food dough mixer. Orders Orders: Low Dose CT Lung Screening [...] cessation. You may call the free hotline 0-642-NKLUNOW. People who use this line are THREE times more likely to remain smoke free. Orders Orders: Low Dose CT Lung Screening Today 05/17/20 1707 <Electronically signed by Savi Rodriguez NP, NP-C> Date Savi Rodriguez NP PHOTOCOMPOSITION KEYBOARD OPERATOR-C Cosigner Signature: Date (if applicable) CC: Dr. Hector Hsu MD; Dr. Jocelin Saunders DO; MD Jocelin Langford Start: 05-12-2020 End: 05-12-2020 Oncology Visit Report Comments: See Note; NOTES: [facility] [address] [address] OFFICE VISIT Date of Service: 05/12/20 1313 MR#: [id number] Acct: [id number] Name: FREDERIC OVALLES Rep #: [id number] : 1960 From: Sawyer Delgado MD Age/Sex: [...] neoplasm. The flow cytometry analysis report from [employer] is reviewable in the patient???s EMR. BONE [...] and megakaryocytes. ADDENDUM FISH BCR/ABL1 REPORT FROM [facility] INTERPRETATION: BCR/ABL gene rearrangement is detected. RESULTS: BCR/ABL1 Normal Nuclei Positive Nuclei with Dual Fusion 3.33% 96.67% CYTOGENETICS REPORT FROM [facility] INTERPRETATION: Abnormal male karyotype was observed in [...] % Lymph % (Auto) 20.4 (19-41) % [place] % (Auto) 6.3 (0-10) % Eos % [...] impression and plan discussed. Sawyer Delgado MD Production Staff Worker, [facility] Divisions of Medical Oncology Hematology Department of Internal Medicine [place] [phone] This note was generated using a voice [...] PO Q8H PRN PRN #30 tab 05/05/20 [place]-3 Fatty Acids [Fish Oil] 1 cap PO DAILY 05/12/20 Primary Care Provider: Dr. Jocelin Saunders DO Referring Provider: Dr. Jocelin Saunders DO 05/12/20 1323 <Electronically signed by Sawyer Delgado MD> Date Sawyer Delgado MD Cosigner Signature: Date (if applicable) CC: Jocelin Saunders Start: 05-05-2020 End: 05-05-2020 Oncology Visit Report Comments: See Note; NOTES: [facility] [address] [address] OFFICE VISIT Date of Service: 05/05/20 1345 MR#: [id number] Acct: [id number] Name: FREDERIC OVALLES Rep #: [id number] : 1960 From: Sawyer Delgado MD Age/Sex: [...] neoplasm. The flow cytometry analysis report from [employer] is reviewable in the patient???s EMR. BONE [...] and megakaryocytes. ADDENDUM FISH BCR/ABL1 REPORT FROM [employer] INTERPRETATION: BCR/ABL gene rearrangement is detected. RESULTS: BCR/ABL1 Normal Nuclei Positive Nuclei with Dual Fusion 3.33% 96.67% CYTOGENETICS REPORT FROM [facility] INTERPRETATION: Abnormal male karyotype was observed in [...] impression and plan discussed. Sawyer Delgado MD Production Staff Worker, [facility] Divisions of Medical Oncology Hematology Department of Internal Medicine [facility] [address] [place], [place] [address] This note was generated using a voice [...] Referring Provider: Dr. Jocelin Saunders DO 05/05/20 8717 <Electronically signed by Sawyer Delgado MD> Date Sawyer Delgado MD Cosigner Signature: Date (if applicable) CC: Jocelin Saunders Start: 04-28-2020 End: 04-28-2020 Oncology Visit Report Comments: See Note; NOTES: [facility] [place] [address] OFFICE VISIT Date of Service: 04/28/20 1245 MR#: [id number] Acct: [id number] Name: FREDERIC OVALLES Alyx Rep #: [id number] : 1960 From: Sawyer Delgado MD Age/Sex: [...] and megakaryocytes. ADDENDUM FISH BCR/ABL1 REPORT FROM [employer] [employer] INTERPRETATION: BCR/ABL gene rearrangement is detected. RESULTS: BCR/ABL1 Normal Nuclei Positive Nuclei with Dual Fusion 3.33% 96.67% CYTOGENETICS REPORT FROM [employer] INTERPRETATION: Abnormal male karyotype was observed in [...] Skin:: - - Right hand Band-Aid covering a puppy bite. Negative for: Lesions, Rash, Petechiae, Ecchymosis Psychiatric:: [...] attended a formal chemotherapy teaching session was PHOTOCOMPOSITION KEYBOARD OPERATOR and was provided with educational material. Main side effects of dasatinib were reviewed. #2-refer to lung cancer screening register and smoking cessation discussed.. Patient was seen with his , impression and plan discussed. Sawyer Delgado MD Production Staff Worker, [facility] Divisions of Medical Oncology Hematology Department of Internal Medicine [place] [phone] This note was generated using a voice [...] Referring Provider: Dr. Jocelin Saunders DO 04/28/20 1795 <Electronically signed by Sawyer Delgado MD> Date Sawyer Delgado MD Cosigner Signature: Date (if applicable) CC: DO Jocelin Wiseman Start: 04-20-2020 End: 04-20-2020 Oncology Visit Report Comments: See Note; NOTES: [facility] [address] [place] [address] OFFICE VISIT Date of Service: 04/20/20 1020 MR#: [id number] Acct: [id number] Name: FREDERIC OVALLES Rep #: [id number] : 1960 From: Savi Rodriguez NP PHOTOCOMPOSITION KEYBOARD OPERATOR -C Age/Sex: 59/M Location: OMD Status: Signed [...] pending. Patient to be evaluated by his dog food dough mixer, Dr. Hsu in cardio onc clinic upon initiation of therapy. 5. Ultrasound abdomen to assess spleen size due to limited clinical ability to assess spleen because of his size and weight and qPCR on peripheral blood for BCR ABL pretreatment baseline- pending. RTO 04/28/20 as previously planned to review BMBX, splenic US and quant. BCR ABL. Savi Rodriguez, MSN, CORPORATE TRAVEL MANAGER-C, AOCNP Medications: Prescriptions This Visit Medication Instructions Recorded Ascorbic Acid [Vitamin C] 1,000 mg PO DAILY 04/05/20 Vitamin E 200 unit PO DAILY 04/05/20 Primary Care Provider: Dr. Jocelin Saunders DO Referring Provider: Dr. Jocelin Saunders DO - Problem List (1) Chronic myeloid leukemia Status: Chronic (2) Encounter for education Status: Acute 04/20/20 1209 <Electronically signed by Savi Rodriguez PHOTOCOMPOSITION KEYBOARD OPERATOR PHOTOCOMPOSITION KEYBOARD OPERATOR-C> Date Savi Rodriguez PHOTOCOMPOSITION KEYBOARD OPERATOR PHOTOCOMPOSITION KEYBOARD OPERATOR-C Cosigner Signature: Date (if applicable) CC: Jocelin Saunders Start: 04-20-2020 End: 04-21-2020 12 Lead EKG Comments: See Note; NOTES: [facility] Cardiovascular Services [address] [place] [address] 12 Lead EKG 04/20/20 0933 MR#: [id number] Acct: [id number] Name: FREDERIC OVALLES Rep #: [id number] : 1960 59 From: Hector Hsu MD Attending Dr: Dr. Sawyer Delgado MD Status: REG [facility] Ordering Dr: Sawyer Delgado MD Date: 04/20/20 [...] Normal ECG Confirmed by SHADI HICKS, HECTOR ([id number]), city editor CASEY LESLIE ([id number]) on 04/21/2020 8:14:54 AM Referred By: Sawyer Delgado Confirmed By:HECTOR HSU MD 04/21/20 0814 Date Hector Hsu MD CC: Dr. Jocelin Saunders, DO; Dr. Sawyer Delgado MD Signed Sawyer Delgado Work Phone: Start: 04-20-2020 End: 04-20-2020 ONC Echo Complete W/ Contrast Comments: See Note; NOTE S: [facility] Cardiovascular Services [address] [place] [address] ONC Echo Complete W/ Contrast 04/20/20 0844 MR#: [id number] Acct: [id number] Name: FREDERIC OVALLES Rep #: [id number] : 1960 59 From: Hector Hsu MD [...] Referring Physician: Jocelin Saunders M.D. Performed By: Brodwolf, Hung, RCS 04/20/20 1329 Date Hector Hsu MD CC: Dr. Jocelin Saunders, DO; Dr. Sawyer Delgado MD Date Dictated: 04/20/2044 Date Transcribed: 04/20/201328 Travel Money Advisor: Signed Sawyer Delgado Work Phone: Start: 04-13-2020 End: 04-13-2020 Biopsy/Inj or Needle Placement Comments: See Note; NOT ES: [facility] Imaging Services [address] [place] [address] Biopsy/Inj or Needle Placement MR#: [id number] Acct: [id number] Name: FREDERIC OVALLES Rep #: [id number] : 1960 M 59 From: Jeovanny medeiros MD PCP: Dr. Jocelin Saunders DO Status: REG CLI Study: Biopsy/Inj or Needle Placement Date of Exam: 0 04/13/20 Exam# [id number] Ordering Dr: Sawyer Delgado MD PROCEDURE: CT [...] Jocelin Saunders DO; Dr. Sawyer Delgado MD Travel Money Advisor: Signed Sawyer Delgado Work Phone: Start: 04-13-2020 End: 04-13-2020 Spleen Comments: See Note; NOTES: [facility] Imaging Services [address] [place] [address] Spleen MR#: [id number] Acct: [id number] Name: MARISAPATRICIAFREDERIC Rep #: [id number] : 1960 M 59 From: Jeovanny medeiros MD PCP: Dr. Jocelin Saunders DO Status: REG CLI Study: Spleen Date of Exam: 04/13/20 Exam# [id number] Ordering Dr: Sawyer Delgado MD STUDY: ABDOMINAL [...] Jocelin Saunders DO; Dr. Sawyer Delgado MD Travel Money Advisor: Signed Sawyer Delgado Work Phone: Start: 04-05-2020 End: 04-05-2020 Oncology Visit Report Comments: See Note; NOTES: [facility] [address] [place] [address] OFFICE VISIT Date of Service: 04/05/20 1001 MR#: [id number] Acct: [id number] Name: FREDERIC OVALLES Rep #: [id number] : 1960 From: Sawyer Delgado MD Age/Sex: [...] to starting systemic therapy Sawyer Delgado MD Production Staff Worker, [facility] Divisions of Medical Oncology Hematology Department of Internal Medicine [place] [phone] This note was generated using a voice [...] Dr. Jocelin Saunders, DO Jocelin Saunders Start: 03-14-2020 End: 03-14-2020 Oncology Visit Report Comments: See Note; NOTES: [facility] [address] [place] [address] OFFICE VISIT Date of Service: 03/14/20 1303 MR#: [id number] Acct: [id number] Name: FREDERIC OVALLSE Rep #: [id number] : 1960 From: Sawyer Delgado MD Age/Sex: [...] History No change from March 07 visit I feel good and the right toe that was infected [...] Impression and plan discussed. Sawyer Delgado MD Production Staff Worker, [facility] Divisions of Medical Oncology Hematology Department of Internal Medicine [place] [phone] This note was generated using a voice [...] Dr. Jocelin Saunders, DO Jocelin Saunders Start: 03-07-2020 End: 03-07-2020 Oncology History and Physical Comments: See Note; NOTE S: [facility] Medical Records Department [address] [place] [address] History and Physical 03/07/20 1427 MR#: [id number] Acct: [id number] Name: FREDERIC OVALLES Rep #: [id number] : 1960 59 From: Sawyer Delgado MD PCP: Dr. Jocelin Saunders, Status:REG RCR Y Location: OMD - Problem [...] January 2020 and is improving. Power of Drive Thru Order Taker: No Living Will: No Health History: Past Medical History (Last Reviewed 03/07/20 @ 14:09 by Parris Darby) Atherosclerosis of coronary artery of [place] heart without angina pectoris (Chronic) History of [...] drinking: Has the patient needed an eye brewing technician in the mornings: Comments: Date of last [...] to the lung cancer screening register at [facility]. 3. Follow-up in 1 week. Impression and plan discussed. Sawyer Delgado MD Production Staff Worker, [facility] Divisions of Medical Oncology Hematology Department of Internal Medicine [place] [facility] [place] [phone] This note was generated using a voice [...] Referring Provider: Dr. Jocelin Saunders DO 03/07/20 1456 <Electronically signed by Sawyer Delgado MD> Date Sawyer Delgado MD Cosigner Signature: Date (if applicable) CC: Dr. Jocelin Saunders DO; Dr. Sawyer Delgado MD Signed Jocelin Saunders Start: 02-11-2020 End: 02-11-2020 Toe(s) Min 2 Views Comments: See Note; NOTES: [facility] Imaging Services [address] [place] [address] Toe(s) Min 2 Views MR#: [id number] Acct: [id number] Name: FREDERIC OVALLES Rep #: [id number] : 1960 M 59 From: Roque Wagner MD PCP: Dr. Jocelin Saunders DO Status: REG CLI Study: Toe(s) Min 2 Views Date of Exam: 02/11/20 Exam# [id number] Ordering Dr: Jocelin Saunders DO STUDY: X-RAY [...] support , CC: Dr. Jocelin Saunders DO Travel Money Advisor: Signed Jocelin Saunders Work Phone: Start: 12-15-2019 End: 12-15-2019 Cardiology Visit Report Comments: See Note; NOTES: [facility] [address] [place] [address] OFFICE VISIT Date of Service: 12/15/19 MR#: [id number] Acct: [id number] Name: FREDERIC OVALLES Rep #: [id number] : 1960 Provider: Dr. Hector Hsu MD Age/Sex: 59/M Location: [facility] Status: Signed [facility] History of Present Illness Details: This is [...] have access to a blood pressure cuff. [facility] Medical History Atherosclerosis of coronary artery of [place] heart without angina pectoris (Chronic) History of [...] History of coronary artery stent placement Z95.5 PXO-VGD-Iuys LAD 4.0 x 20 mm Synergy, NICA-Mid [...] patient were answered. 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 (technology resource teacher) Coding Level of Care Code Attention Dining Room Attendant Cafeteria Diagnoses History of coronary artery stent placement Z95.5 Essential (primary) hypertension I10 Pure hypercholesterolemia E78.00 ?Hyperlipidemia type: pure hypercholesterolemia Time Spent (min) 11 Comment 58851 Coding Level of Care Code Attention Dining Room Attendant Cafeteria Diagnoses History of coronary artery stent placement Z95.5 Essential (primary) hypertension I10 Pure hypercholesterolemia E78.00 ?Hyperlipidemia type: pure hypercholesterolemia Time Spent (min) 11 Comment 64512 Supplemental Info Supplemental Information Diagnostics Echocardiogram 09/04/18 Stress Test Nuclear Medicine 09/04/18 Stress Test 09/04/18 Chest X-Ray 10/27/18 12/15/19 1040 <Electronically signed by Hector Hsu MD> Date Hector Hsu MD Cosigner Signature: Date (if applicable) CC: Dr. Jocelin Saunders, DO Jocelin Saunders Start: 03-19-2019 End: 03-19-2019 Cardiology Visit Report Comments: See Note; NOTES: [facility] [address] [place] [address] OFFICE VISIT Date of Service: 03/19/19 MR#: [id number] Acct: [id number] Name: FREDERIC OVALLES Rep #: [id number] : 1960 Provider: Meron Junior Age/Sex: 58/M Location: [facility] Status: Signed HPI HPI History [...] Lt brachial Intake Visit Reasons: 6 M FU Operator Cavity Pump Required: No Is patient in pain?: No [...] PO DAILY 09/02/18 [History Confirmed 03/19/19] omega 2-rcw-ocp-fish oil 1,000 mg (120 mg-180 mg) capsule 2 cap PO DAILY cap 09/02/18 [History Confirmed 03/19/19] ramipril 2.5 mg capsule 2.5 mg PO DAILY 09/02/18 [History Confirmed 03/19/19] [facility] Medical History (Updated 03/19/19 @ 09:23 by ALIS Villanueva) Hyperlipidemia (Chronic) Essential (primary) hypertension (Chronic) Nicotine dependence (Chronic) Atherosclerosis of coronary artery of [place] heart without angina pectoris (Chronic) Old myocardial [...] SOB with activity, SOB at rest, SOB orthopnea\SOB lying down or Cough GI GI: Negative [...] affect Assessment AND Plan 1. Atherosclerosis of [place] coronary artery of [place] heart without angina pectoris I25.10 Plan Stable, [...] statin. 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 (INDEPENDENT DRIVER) Coding Level of Care Code Off vis,est,level 3 Diagnoses Atherosclerosis of [place] coronary artery of [place] heart without angina pectoris I25.10 Coronary Disease-Associated Artery/Lesion type: [place] artery Essential hypertension I10 Pure hypercholesterolemia E78.00; E78.0 Hyperlipidemia type: pure hypercholesterolemia Coding Level of Care Code Off vis,est,level 3 Diagnoses Atherosclerosis of [place] coronary artery of [place] heart without angina pectoris I25.10 Coronary Disease-Associated Artery/Lesion type: [place] artery Essential hypertension I10 Pure hypercholesterolemia E78.00; [...] Stress Test 09/04/18 Chest X-Ray 10/27/18 03/19/19 09 <Electronically signed by Meron SNELL> Date Meron SNELL Cosigner Signature: Date (if applicable) CC: Jocelin Thakur Start: 11-03-2018 End: 11-03-2018 Surgery Visit Report Comments: See Note; NOTES: [facility] [address] [place] [address]. [address] [place] [address] OFFICE VISIT Date of Service: 11/03/18 MR#: [id number] Acct: [id number] Name: FREDERIC OVALLES Rep #: [id number] : 1960 Provider: Wolfgang Thompson MD Age/Sex: 58/M Location: [facility] Status: Signed Intake Intake Visit Reasons: CARLOS POTTER 10/15 Chief Complaint: migue Operator Cavity Pump Required: No Is patient in pain?: No [...] PO DAILY 09/02/18 [History Confirmed 11/03/18] omega 5-tbe-llw-fish oil 1,000 mg (120 mg-180 mg) capsule [...] foods like orange juice which always would tearing him up previously he has not currently having any symptoms. [...] PA and Lateral Comments: See Note; NOTES: [facility] Imaging Services [address] [place] [address] Chest PA and Lateral MR#: [id number] Acct: [id number] Name: FREDERIC OVALLES Alyx Rep #: [id number] : 1960 58 From: Jeovanny Swan MD PCP: Jocelin Saunders DO Status: [facility] CLI Study: Chest PA and Lateral Date of Exam: 10/27/18 Exam# [id number] Ordering Dr: Wolfgang Thompson MD STUDY: X-RAY [...] infiltrate. Follow-up is recommended. Electronically Signed: Jeovanny Josuejaquanmala, at 15:58 EDT , Service support , CC: Jocelin Saunders DO; Wolfgang Thompson MD Travel Money Advisor: Signed Jocelin Saunders Start: 10-27-2018 End: 10-27-2018 Surgery Visit Report Comments: See Note; NOTES: [facility] [address] [place] [address]. [address] [place] [address] OFFICE VISIT Date of Service: 10/27/18 MR#: [id number] Acct: [id number] Name: FREDERIC OVALLES Rep #: [id number] : 1960 Provider: Wolfgang Thompson MD Age/Sex: 58/M Location: [facility] Status: Signed Intake Intake Visit Reasons: f/u lap migue 10/15/18 rc Chief Complaint: migue Operator Cavity Pump Required: No Is patient in pain?: Yes [...] PO DAILY 09/02/18 [History Confirmed 10/27/18] omega 4-juj-sig-fish oil 1,000 mg (120 mg-180 mg) capsule [...] Wolfgang Thompson MD> Date Wolfgang Thompson MD Cosign Signature: Date (if applicable) CC: Jocelin Saunders DO Jocelin Saunders Start: 09-30-2018 Esophagogastroduodenoscopy Jocelin Saunders Comment on above: Patient: FREDERIC OVALLES : 0 (58/M) Acct Num: [id number] Phys: Jay HICKS,Wolfgang Unit Num: [id number] Loc: EN Specimen: [id number] Received: 09/30/18921 Spec Type: EGD BIOPSY TISSUES 1 TISSUES: A. Gastric mucous membrane B. Esophageal mucous membrane COMMENT A. The results of immunohistochemistry for Helicobacter pylori will be reportedseparately ([id number]). B. PASF stain with matched control supports the above diagnosis. GROSS DESCRIPTION A - Received in fixative is one container labeled with the patient's name and designated antrum biopsy. The specimen consists of one irregular fragment of light garcia soft tissue that measures 0.3 x 0.3 x 0.1 cm. The specimen is totallysubmitted in one cassette. B - Received in fixative is one container labeled with the patient's name and designated distal esophagus biopsy. The specimen consists of multiple irregular fragments of light garcia soft tissue that in aggregate measure 2 x 0.4 x0.1 cm. The specimen is totally submitted in one cassette. / SJ:lisandra 09/30/18 TC:3 CPT: 59124 x2, 38563 HEADER OPERATION: EGD (MOD) PRE-OP DIAGNOSIS: Hiatal [...] AM:lisandra 10/01/18 Signed Duane Hassan DO 10/02/18 [facility] [address] [place], [address] Start: 09-30-2018 End: 09-30-2018 Operative Report - Endoscopy Comments: See Note; NOTES : [facility] Medical Records Department [address] [place] [address] Operative Report - Endoscopy MR#: [id number] Acct: [id number] Name: FREDERIC OVALLES Rep #: [id number] : 1960 58 From: Wolfgang Thompson MD PCP: Jocelin Saunders DO Status: [facility] 09/30/2018 Jocelin Saunders [address] [facility] [address] [place] [address] Re : Upper GI endoscopy procedure for [...] AM This report has been signed electronically. 09/30/18 0723 Date Wolfgang Thompson MD Cosigner Signature: Date (if indicated) CC: Jocelin Saunders DO; Wolfgang Thompson MD Date Dictated: 09/30/18701 Date Transcribed: Travel Money Advisor: CHAUNCEY Signed Jocelin Saunders Start: 09-19-2018 End: 09-19-2018 Surgery Visit Report Comments: See Note; NOTES: [facility] [address] [facility] [place] [address] OFFICE VISIT Date of Service: 09/19/18 MR#: [id number] Acct: [id number] Name: FREDERIC OVALLES Rep #: [id number] : 1960 Provider: Wolfgang Thompson MD Age/Sex: 58/M Location: [facility] Status: Signed Intake Vital Signs09/19/18 Body Mass Index (BMI) 31.6 09/19/18 Height 6 ft 09/19/18 Weight: 234 lb 11 oz 09/19/18 Body Mass Index (BMI) 31.8 09/19/18 Blood Pressure 136/83 H Intake Visit Reasons: TO DISCUSS HIATAL HERNIA Chief Complaint: discuss lap migue Operator Cavity Pump Required: No Is patient in pain?: No [...] PO DAILY 09/02/18 [History Confirmed 09/19/18] omega 5-rmx-hcr-fish oil 1,000 mg (120 mg-180 mg) capsule cap PO cap 09/02/18 [History Confirmed 09/19/18] omeprazole 40 mg capsule,delayed release 40 mg PO DAILY 09/02/18 [History Confirmed 09/19/18] ramipril 2.5 mg capsule 2.5 mg PO DAILY 09/02/18 [History Confirmed 09/19/18] [facility] Medical History Hyperlipidemia (Chronic) Essential (primary) hypertension (Chronic) Nicotine dependence (Chronic) Atherosclerosis of coronary artery of [place] heart without angina pectoris (Chronic) Old myocardial [...] which did not show acute ischemia. In 2016 he had upper endoscopy demonstrating a 5 cm hiatal hernia with reflux esophagitis on biopsy. He had esophageal manometry which demonstrated normal manometric pressures. He had pH probe demonstrating active reflux. Today is a 15-minute emcl-wz-teqr consultative appointment to review the above findings. MR#:[id number]:[id number] Name: FREDERIC OVALLES [facility] #:[id number] : 1960 Provider:Wolfgang Thompson MD Age/Sex: 58/M Location:[facility] Status:Signed with Addenda ADDENDUM by Wolfgang Thompson MD on 09/09/18 at 0739 Addendum entered and electronically signed by Wolfgang Thompson MD 09/09/18 07:39: September 09, 2018 I have records from cardiology's office visit of September 03, 2018. The patient was seen by Dr. Misty Gomez 2016 the patient had 2 coronary stents placed. [...] PO DAILY 09/02/18 [History Confirmed 09/03/18] omega 8-otf-sfy-fish oil 1,000 mg (120 mg-180 mg) capsule [...] previous evaluation of 2016. We will contact [facility] tomorrow with a request for these results. [...] Intake Visit Reasons: HIATAL HERNIA AND GERD Operator Cavity Pump Required: No Is patient in pain?: No [...] PO DAILY 09/02/18 [History Confirmed 09/02/18] omega 7-kwf-ezd-fish oil 1,000 mg (120 mg-180 mg) capsule [...] per Dr Rachel who has since left [facility]. The patient seems to describe upper endoscopy and esophageal manometry. He does not recall whether he had a barium swallow. 2 weeks after that he had an acute myocardial infarction and had 2 stents placed. He has been treated with Brilinta ever since. Recently he was seen by his [facility] dog food dough mixer Dr Marco Elizabeth he had his Brilinta stopped. The patient is wanting to establish care locally here in [place]. He could not have his surgical treatment [...] previous evaluation of 2017. We will contact [facility] tomorrow with a request for these results. [...] Brain W/WO Contrast Comments: See Note; NOTES: [facility] Imaging Services [address] [place] [address] Brain W/WO Contrast MR#: [id number] Acct: [id number] Name: FREDERIC OVALLES Rep #: [id number] : 1960 M 58 From: Bandar Owens MD PCP: Jocelin Saunders DO Status: REG CLI Study: Brain W/WO Contrast Date of Exam: 09/09/18 Exam# [id number] Ordering Dr: Jocelin Saunders DO STUDY: MRI [...] Service support , CC: Jocelin Saunders DO Travel Money Advisor: Signed Jocelin Saunders Work Phone: Start: 09-09-2018 End: 09-09-2018 Surgery Visit Report Comments: See Note; NOTES: [facility] [address] [place] [address] OFFICE VISIT Date of Service: 09/02/18 MR#: [id number] Acct: [id number] Name: FREDERIC OVALLES Rep #: [id number] : 1960 Provider: Wolfgang Thompson MD Age/Sex: 58/M Location: [facility] Status: Signed with Addenda ADDENDUM by Wolfgang [...] PO DAILY 09/02/18 [History Confirmed 09/03/18] omega 8-edr-efk-fish oil 1,000 mg (120 mg-180 mg) capsule [...] previous evaluation of 2016. We will contact [facility] tomorrow with a request for these results. [...] Intake Visit Reasons: HIATAL HERNIA AND GERD Operator Cavity Pump Required: No Is patient in pain?: No [...] PO DAILY 09/02/18 [History Confirmed 09/02/18] omega 1-xnp-amy-fish oil 1,000 mg (120 mg-180 mg) capsule [...] per Dr Rachel who has since left [facility]. The patient seems to describe upper endoscopy and esophageal manometry. He does not recall whether he had a barium swallow. 2 weeks after that he had an acute myocardial infarction and had 2 stents placed. He has been treated with Brilinta ever since. Recently he was seen by his [facility] dog food dough mixer Dr Marco Elizabeth he had his Brilinta stopped. The patient is wanting to establish care locally here in [place]. He could not have his surgical treatment [...] cooperative Nutritional Appearance: obese Orientation: alert, awake HENOH Other: Mustache in place with tobacco staining [...] previous evaluation of 2016. We will contact [facility] tomorrow with a request for these results. [...] End: 09-05-2018 Electroencephalogram Comments: See Note; NOTES: [facility] Pulmonary Services/Neurology [address] [place] [address] MR#: [id number] Acct: [id number] Name: FREDERIC OVALLES Rep #: [id number] : 1960 58 From: Sandro Barclay MD Referring Dr: Jocelin Saunders DO Status: REG CLI Ordering Dr: Date: Location: [facility] Sex: M C - Electroencephalogram This is [...] Date Dictated: 09/05/18 1153 Date Transcribed: 09/05/181152 Travel Money Advisor: NF Signed Jocelin Saunders Start: 09-05-2018 End: 09-05-2018 Carotid Duplex Ultrasound Comments: See Note; NOTES: [facility] Cardiovascular Services [address] [place] [address] Carotid Duplex Ultrasound 09/04/18 0947 MR#: [id number] Acct: [id number] Name: FREDERIC OVALLES Rep #: [id number] : 1960 58 From: Dex Claudio MD Attending Dr: Jocelin Saunders DO Status: REG CLI Ordering Dr: Jocelin Saunders DO Date: 09/04/18 Location: [facility] Sex: M C Admitted: Reason For Study: [...] the left vertebral artery. Procedure Carotid Duplex 56144. Exam performed in department. Interpretation Summary Mild (<50%) stenosis right extracranial internal carotid. No significant atherosclerotic plaque or stenosis noted in the left internal carotid artery. Flow within the vertebral arteries is antegrade bilaterally. Ordering Physician: Jocelin Saunders Referring Physician: Jocelin Saunders Performed By: Jade Mclean RVT 09/05/18 0840 Date Dex Claudio MD CC: Jocelin Saunders DO Date Dictated: 09/04/18946 Date Transcribed: 09/05/18839 Travel Money Advisor: Signed Jocelin Saunders Work Phone: Start: 09-04-2018 End: 09-04-2018 Echo, Complete w/ Contrast Comments: See Note; NOTES: [facility] Cardiovascular Services [address] [place] [address] Echo Complete W/ Contrast 09/04/1847 MR#: [id number] Acct: [id number] Name: FREDERIC OVALLES Rep #: [id number] : 1960 58 From: Hector Hsu MD Attending Dr: Jocelin Saunders DO Status: REG CLI Ordering Dr: Jocelin Saunders DO Date: 09/04/18 Location: [facility] Sex: M C Admitted: Reason For Study: [...] DO Date Dictated: 09/04/1847 Date Transcribed: 09/04/18947 Travel Money Advisor: Signed Jocelin Saunders Work Phone: Start: 09-04-2018 End: 09-04-2018 Stress Report Comments: See Note; NOTES: [facility] Cardiovascular Services [address] [place] [address] MR#: [id number] Acct: [id number] Name: FREDERIC OVALLES Rep #: [id number] : 1960 58 From: Hector Hsu MD Primary Care: Jocelin Saunders DO Status: REG CLI Ordering Dr: Sex: Rigoberto Payan Stress Test Report Exercise myocardial perfusion stress [...] DO Date Dictated: 09/04/18906 Date Transcribed: 09/04/18906 Travel Money Advisor: [place] Signed Jocelin Saunders Start: 09-03-2018 End: 09-03-2018 Cardiology Visit Report Comments: See Note; NOTES: [facility] [address] [place] [address] OFFICE VISIT Date of Service: 09/03/18 MR#: [id number] Acct: [id number] Name: FREDERIC OVALLES Rep #: [id number] : 1960 Provider: Hector Hsu MD Age/Sex: 58/M Location: [facility] Status: Signed HPI HPI Chief Complaint: Preoperative [...] Reasons: Ref'd by Dr Thompson, transfer from [facility] Allergies No Known Allergies Allergy (Unverified 09/03/18 08:52) Medications aspirin 81 mg tablet,delayed release 81 mg PO DAILY 09/02/18 [History Confirmed 09/03/18] atorvastatin 80 mg tablet 80 mg PO DAILY 09/02/18 [History Confirmed 09/03/18] carvedilol 6.25 mg tablet 6.25 mg PO BID 09/02/18 [History Confirmed 09/03/18] cholecalciferol (vitamin D3) 1,000 unit capsule 1,000 unit PO DAILY 09/02/18 [History Confirmed 09/03/18] omega 1-eus-nft-fish oil 1,000 mg (120 mg-180 mg) capsule cap PO cap 09/02/18 [History Confirmed 09/03/18] omeprazole 40 mg capsule,delayed release 40 mg PO DAILY 09/02/18 [History Confirmed 09/03/18] ramipril 2.5 mg capsule 2.5 mg PO DAILY 09/02/18 [History Confirmed 09/03/18] PFSH Medical History Hyperlipidemia (Chronic) Essential (primary) hypertension (Chronic) Nicotine dependence (Chronic) Atherosclerosis of coronary artery of [place] heart without angina pectoris (Chronic) Old myocardial [...] cough); negative for SOB at rest, SOB orthopnea\SOB lying down or paroxysmal nocturnal dyspnea GI [...] surgery. 2. Atherosclerosis of coronary artery of [place] heart without angina pectoris I25.10 Plan He [...] continue. 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 Up 6 Months ([facility]) Coding Level of Care Code Off vis,new,level 4 Diagnoses Preop cardiovascular exam Z01.810 Atherosclerosis of coronary artery of [place] heart without angina pectoris I25.10 Essential (primary) hypertension I10 Hyperlipidemia E78.5 Coding Level of Care Code Off vis,new,level 4 Diagnoses Preop cardiovascular exam Z01.810 Atherosclerosis of coronary artery of [place] heart without angina pectoris I25.10 Essential (primary) hypertension I10 Hyperlipidemia E78.5 09/03/18 1128 <Electronically signed by Hector Hsu MD> Date Hector Hsu MD Cosigner Signature: Date (if applicable) CC: Jocelin Thakur Start: 09-02-2018 End: 09-02-2018 Surgery Visit Report Comments: See Note; NOTES: [facility] [address] [place] [address] OFFICE VISIT Date of Service: 09/02/18 MR#: [id number] Acct: [id number] Name: FREDERIC OVALLES Rep #: [id number] : 1960 Provider: Wolfgang Thompson MD Age/Sex: 58/M Location: [facility] Status: Signed Intake Vital Signs09/02/18 Height 6 ft 09/02/18 Weight: 233 lb 09/02/18 Body Mass Index (BMI) 31.6 Intake Visit Reasons: HIATAL HERNIA AND GERD Operator Cavity Pump Required: No Is patient in pain?: No [...] PO DAILY 09/02/18 [History Confirmed 09/02/18] omega 3-ndc-dzf-fish oil 1,000 mg (120 mg-180 mg) capsule [...] per Dr Rachel who has since left [facility]. The patient seems to describe upper endoscopy and esophageal manometry. He does not recall whether he had a barium swallow. 2 weeks after that he had an acute myocardial infarction and had 2 stents placed. He has been treated with Brilinta ever since. Recently he was seen by his [facility] dog food dough mixer Dr Marco Elizabeth he had his Brilinta stopped. The patient is wanting to establish care locally here in [place]. He could not have his surgical treatment [...] previous evaluation of 2016. We will contact [facility] tomorrow with a request for these results. [...] E66.9 History of myocardial infarction I25.2 09/02/18 9749 <Electronically signed by Wolfgang Thompson MD> Date [...] Gravius Comment on above: 02/04 Heart stents Talia Nguyen Comment on above: 02/04 Heart stents Eufemia Gravius Comment on above: 02/04 Heart stents Eufemia Gravius Comment on above: 02/04 Heart stents Eufemia Gravius Comment on above: 02/04 Heart stents Polina Bhat Comment on above: 02/04 Heart stents Vinod Reddy Comment on above: 02/04 Heart stents Polina Cross ROUGHER HELPER Comment on above: 02/04 Heart stents Letty Slafelix RODRIGUEZN Comment on above: 02/04 Heart stents Eufemia Gravius YOKE PRESSER Comment on above: 02/04 Heart stents Eufemia Gravius YOKE PRESSER Comment on above: 02/04 Hernia repair Talia [...] Comment on above: 12 yrs Hernia repair Polinajulio cesar Bhat Comment on above: 12 yrs Hernia repair Vinod Reddy Comment on above: 12 yrs Hernia repair Polina Bhat ROUGHER HELPER Comment on above: 12 yrs Hernia repair Letty Slarb ROUGHER HELPER Comment on above: 12 yrs Hernia repair Eufemia Gravius YOKE PRESSER Comment on above: 12 yrs Hernia repair Eufemia Gravius YOKE PRESSER Comment on above: 12 yrs Hernia repair Kayela Okemos YOKE PRESSER Hernia repair Kayela Russell YOKE PRESSER Hernia repair Kayela [place] YOKE PRESSER Hernia repair Víctor [place] ROUGHER HELPER Hernia repair Víctor [place] ROUGHER HELPER Investigation of tra nsfusion reaction Dr. Jocelin Saunders Work Phone: Investigation of tra nsfusion reaction Dr. Jocelin Sanuders Work Phone: SARS-CoV-2 & FLU Ant igen (Rapid) Dr. Jocelin Saunders Work Phone: SARS-CoV-2 & FLU Ant igen (Rapid) Dr. Jocelin Saunders Work Phone: Kayela Okemos YOKE PRESSER Kayela Okemos YOKE PRESSER Kayela Russell YOKE PRESSER Víctor [place] ROUGHER HELPER Víctor Mick ROUGHER HELPER Plan of Treatment Date Care Activity Detail Author Start: 12-21-2029 Tetanus vaccination TETANUS [facility] Start: 07-27-2025 End: 07-27-2025 Patient encounter procedure [facility] Start: 07-19-2025 Procedure [facility] Start: 07-19-2025 Serum inorganic phosphate measurement [facility] Start: 05-11-2025 Non-patient / Non-visit Non-patient / Non-visit -[facility] Start: 05-11-2025 Radionuclide imaging of perfusion of myocardium under exercise stress Nuclear [facility] Test [facility] Start: 05-11-2025 End: 05-11-2025 Patient encounter procedure [facility] Work Phone: Start: 04-16-2025 Hepatic function panel [facility] Start: 04-16-2025 Radionuclide imaging of perfusion of myocardium under exercise stress [facility] Start: 04-16-2025 Thyroid stimulating hormone measurement [facility] Start: 04-16-2025 Thyroxine measurement [facility] Start: 07-28-2024 End: 07-28-2025 BCR/ABL BLOOD OR BONE MARROW,T(9;22),QUANT [facility] Comment on above: Expected: 07/28/2024, Expires: 6 Start: 07-28-2024 End: 07-28-2024 Patient encounter procedure 07/28/2024 2:00 PM EST Office Visit [facility] [address] [place] [id number] Katelyn Lawton MD [address] [place] [address] [facility] Start: 03-22-2024 COVID-19 VACCINE ( season) COVID-19 VACCINE ( season) [facility] Start: 03-22-2024 Influenza vaccination INFLUENZA VACCINE (#1) [facility] Start: 10-23-2023 Procedure [facility] Start: 07-30-2023 End: 07-30-2024 MR Lumbar spine WO and W contrast IV MRI SPINE LUMBAR WITH AND WITHOUT CONTRAST Imaging STAT Lumbar radiculopathy Expected: 07/30/2023, Expires: 07/30/2024 [facility] Comment on above: Expected: 07/30/2023, Expires: Start: 04-03-2023 Procedure [facility] Work Phone: Start: 04-03-2023 Provider Instructions for Treatment [facility] Work Phone: Start: 03-22-2023 COVID-19 VACCINE ( season) COVID-19 VACCINE () [facility] Start: 03-22-2023 Influenza vaccination INFLUENZA VACCINE (#1) [facility] Start: 01-30-2023 Procedure Education [facility] [...] Plain chest X-ray Chest PA and Lateral [facility] Start: 08-16-2022 [facility] Start: 08-08-2022 Procedure [facility] Start: 06-28-2022 Procedure Education [facility] [...] Work Phone: Start: 06-04-2022 Vital signs measurements [facility] Start: 06-04-2022 Chemotherapy care management [facility] Start: 06-03-2022 End: 06-03-2022 Blood culture [facility] Work Phone: Start: 06-03-2022 Chemotherapy care management [facility] Start: 06-03-2022 [facility] Start: 03-05-2022 Procedure [facility]; [facility] Work Phone: Start: 03-05-2022 Provider Instructions for Treatment [facility]; [facility] Work Phone: Start: 03-05-2022 Assay of thyroid stimulating hormone tsh TSH (98593) [facility]; [facility] Work Phone: Start: 03-05-2022 Urnls dip stick/tablet reagent auto microscopy URINALYSIS, W/ MICRO (39298) [facility]; [facility] Work Phone: Start: 03-05-2022 Urine albumin quantitative MICROALBUMIN: CREATININE RATIO (47511) AND (34414) [facility]; [facility] Work Phone: Start: 03-05-2022 Comprehensive metabolic panel METABOLIC PANEL, COMPREHENSIVE (97503) [facility]; [facility] Work Phone: Start: 03-05-2022 Lipid panel LIPID PANEL (69686) [facility]; [facility] Work Phone: Start: 03-05-2022 Blood count complete auto&auto difrntl wbc CBC W/AUTO DIFF WBC (33354) [facility]; [facility] Work [...] 12-21-2020 Hepatitis c antibody HEPATITIS C ANTIBODY (41060) [facility]; [facility] Work Phone: Start: 12-21-2020 Assay of prostate specific antigen total PSA (PROSTATE SPECIFIC ANTIGEN) (V76.44) [facility]; [facility] Work Phone: Start: 12-21-2020 Lipoprotein blood kaylie numbers & subclasses NMR Profile (51838) [facility]; [facility] Work Phone: Start: 12-21-2020 Assay of thyroid stimulating hormone tsh TSH (64844) [facility]; [facility] Work Phone: Start: 12-21-2020 Urnls dip stick/tablet reagent auto microscopy URINALYSIS, W/ MICRO (43153) [facility]; [facility] Work Phone: Start: 12-21-2020 Urine albumin quantitative MICROALBUMIN: CREATININE RATIO (56885) AND (81122) [facility]; [facility] Work Phone: Start: 2020 RSV VACCINE (1 - 1-dose 60+ series) RSV VACCINE (1 - 1-dose 60+ series) [facility] Start: 2020 RSV VACCINE (1 - Risk 60-74 years 1-dose series) RSV VACCINE (1 - Risk 60-74 years 1-dose series) [facility] Start: 05-02-2020 Procedure Education [facility] Work Phone: Start: 05-02-2020 Provider Instructions for Treatment [facility] Work Phone: Start: 05-02-2020 HbA1c (Bld) [Mass fraction] HGB A1C (19658) [facility] Work Phone: Start: 05-02-2020 Hemoglobin glycosylated a1c [facility] Work Phone: Start: 04-25-2020 Procedure Education [facility] Work Phone: Start: 04-25-2020 Provider Instructions for Treatment [facility] Work Phone: Start: 04-25-2020 TSH Qn TSH (70550) [facility] Work Phone: Start: 04-25-2020 Urnls dip stick/tablet reagent auto microscopy URINALYSIS, W/ MICRO (72624) [facility] Work Phone: Start: 04-25-2020 Urine albumin quantitative MICROALBUMIN: CREATININE RATIO (81143) AND (72259) [facility] Work Phone: Start: 04-25-2020 Comprehensive metabolic panel METABOLIC PANEL, COMPREHENSIVE (54363) [facility] Work Phone: Start: 04-25-2020 Blood count complete auto&auto difrntl wbc CBC W/AUTO DIFF WBC (10101) [facility] Work Phone: Start: 04-25-2020 Lipoprotein blood kaylie numbers & subclasses NMR Profile (37215) [facility] Work Phone: Start: 02-22-2020 Blood count smear mcrscp w/mnl difrntl wbc count [facility] Work Phone: Start: 02-05-2020 Blood count complete automated [facility] Work Phone: Start: 02-05-2020 CBC, PLATELETS & MANUAL DIFF (04288) [facility] Work Phone: Start: 02-05-2020 Blood smear peripheral interp phys w/writ report [facility] Work Phone: Start: 02-01-2020 Procedure Education [facility] Work Phone: Start: 02-01-2020 Provider Instructions for Treatment [facility] Work Phone: Start: 02-01-2020 CRP [Mass/Vol] C-REACTIVE PROTEIN (06391) [facility] Work Phone: Start: 02-01-2020 Sedimentation rate rbc non-automated ESR-F (SED RATE ERYTHROCYTE - MALE) (12287) [facility] Work Phone: Start: 02-01-2020 Blood count complete auto&auto difrntl wbc CBC W/AUTO DIFF WBC (58674) [facility] Work Phone: Start: 01-11-2020 Lipoprotein blood kaylie numbers & subclasses [facility] Work Phone: Comment on above: do in late in mar 2020 Start: 01-11-2020 Blood count complete auto&auto difrntl wbc CBC W/AUTO DIFF WBC (50020) [facility] Work Phone: Comment on [...] blood kaylie numbers & subclasses NMR Profile (58474) [facility] Work Phone: Start: 04-13-2019 Urnls dip stick/tablet reagent auto microscopy URINALYSIS, W/ MICRO (04282) [facility] Work Phone: Start: 04-13-2019 Urine albumin quantitative MICROALBUMIN: CREATININE RATIO (11461) AND (44651) [facility] Work Phone: Start: 04-13-2019 Comprehensive metabolic panel METABOLIC PANEL, COMPREHENSIVE (23869) [facility] Work Phone: Start: 04-13-2019 Blood count manual cell count each CBC with auto diff (22651) [facility] Work Phone: Start: 01-12-2019 [...] identified Respiratory culture Nom (Sput) Sputum Culture (75138) [facility] Work Phone: Start: 09-11-2018 Procedure Education [facility] Work Phone: Start: 09-11-2018 Provider Instructions for Treatment [facility] Work Phone: Start: 08-26-2018 Procedure Education [facility] Work Phone: Start: 08-26-2018 Provider Instructions for Treatment [facility] Work Phone: Start: 08-26-2018 Protein [Mass/Vol] LIPOPROTEIN, BLD, BY NMR (18879) [facility] Work Phone: Start: 08-26-2018 25 hydroxy includes fractions if performed CALCIFIDIOL (05208) VIT D 25 [facility] Work Phone: Start: 08-26-2018 Cobalamin (Vitamin B12) [Mass/Vol] VITAMIN B-12 (CYANOCOBALAMIN) (77822) [facility] Work Phone: Start: 08-26-2018 Sedimentation rate rbc non-automated SED RATE ERYTHROCYTE (17079) [facility] Work Phone: Start: 08-26-2018 Comprehensive metabolic panel METABOLIC PANEL, COMPREHENSIVE (81290) [facility] Work Phone: Start: 08-26-2018 Blood count complete automated CBC (AUTO) (37951) [facility] Work Phone: Start: 08-26-2018 Troponin I.cardiac [Mass/Vol] Troponin I (90161) [facility] Work Phone: Start: 08-26-2018 TSH Qn TSH (30648) [facility] Work Phone: Start: 08-26-2018 Free T4 [Mass/Vol] T4, FREE (THYROXINE) (21214) [facility] Work Phone: Start: 08-26-2018 Free T3 [Mass/Vol] T3, FREE (TRIDOTHYRONINE) (18384) [facility] Work Phone: Start: 2015 Prostate specific antigen measurement PROSTATE CANCER SCREENING DISCUSSION [facility] Start: 2010 Prostate specific antigen measurement PROSTATE CANCER SCREENING DISCUSSION [facility] Start: 2010 Screening for malignant neoplasm of lung LUNG CANCER SCREENING [facility] Start: 2005 Screening for malignant neoplasm of colon COLORECTAL CANCER SCREENING DISCUSSION [facility] Start: 2000 Lipid panel LIPID SCREENING [facility] Start: 1979 Pneumococcal vaccination PNEUMOCOCCAL VACCINE SERIES (1 of 2 - PCV) [facility] Start: 1979 Zoster vaccine hzv live for subcutaneous use ZOSTER (SHINGLES) VACCINE (1 of 2) [facility] Start: 1975 HIV screening HIV SCREENING DISCUSSION [facility] Start: 1966 PNEUMOCOCCAL VACCINE SERIES (1 - PCV) PNEUMOCOCCAL VACCINE SERIES (1 - PCV) [facility] Start: 1966 PNEUMOCOCCAL VACCINE SERIES (1 of 2 - PCV) PNEUMOCOCCAL VACCINE SERIES (1 of 2 - PCV) [facility] Start: 1960 Hepatitis C screening HEPATITIS C VIRUS SCREENING [facility] Anaerobic Culture Anaerobic Culture [facility] Work Phone: Bacteria identified in Blood by Culture Blood Culture [facility] Work Phone: Bacteria identified in Body fluid by Culture [facility] Work Phone: Bacteria identified in Unspecified specimen by Anaerobe culture [facility] Work Phone: End: 07-25-2024 BCR/ABL BLOOD OR BONE MARROW,T(9;22),QUANT BCR/ABL BLOOD OR BONE MARROW,T(9;22),QUANT Lab Routine CML (chronic myeloid leukemia) q3m for 99 Occurrences starting 07/25/2023 until 07/25/2024, 1 completed [facility] Comment on above: q3m for 99 Occurrences starting 07/25/19 24 until 07/25/2024, 1 completed BCR/ABL, BLOOD OR MALLORY NE MARROW, FINAL BCR/ABL, BLOOD OR BONE MARROW, FINAL Lab Routine CML (chronic myeloid leukemia) 07/30/2023 1:52 PM EST [facility] Blood culture [facility] Work Phone: Body Fluid Culture Body Fluid Culture [facility] Work Phone: CBC W Auto Different ial panel - Blood [facility] Work Phone: CBC W Auto Different ial panel - Blood [facility] CBC W Auto Different ial panel - Blood [facility] CBC W Auto Different ial panel - Blood [facility] CBC W Auto Different ial panel - Blood [facility] CBC W Auto Different ial panel - Blood [facility] CBC W Auto Different ial panel - Blood [facility] CBC W Auto Different ial panel - Blood [facility] CBC W Auto Different ial panel - [facility] End: 07-25-2024 Complete blood count with white cell differential, automated CBC, EDIF, PLATELET Lab Routine CML (chronic myeloid leukemia) 12 Occurrences starting 07/25/2023 until 07/25/2024, 1 completed [facility] Work Phone: Comment on above: 12 Occurrences starting 07/25/2023 until 07/25/2024, 1 completed End: 07-25-2024 Comprehensive metabolic 2000 panel - Serum or Plasma COMPREHENSIVE METABOLIC PANEL Lab Routine CML (chronic myeloid leukemia) 12 Occurrences starting 07/25/2023 until 07/25/2024, 1 completed [facility] Comment on above: 12 Occurrences starting 07/25/2023 until 07/25/2024, 1 completed [facility]o lic 1999 panel - Serum or Plasma [facility] Comprehensive metabo lic 1999 panel - Serum or Plasma [facility] Comprehensive metabo lic 1999 panel - Serum or Plasma [facility] CT Chest [facility] Cytology report of B john fluid Cyto stain [facility] Work Phone: Electrocardiographic procedure [facility] Hemoglobin A1c/Hemoglobin.total in Blood [facility] Lipid 1996 panel - S radha or Plasma [facility] Magnesium [Mass/volu me] in Serum or Plasma [facility] Magnesium [Mass/volu me] in Serum or Plasma [facility] Magnesium measurement [facility] Magnesium measurement [facility] Patient Education [facility] Work Phone: Patient referral [facility] Work Phone: Procedure [facility] Work Phone: Procedure [facility] Procedure [facility] Procedure [facility] Procedure [facility] Radionuclide imaging of perfusion of myocardium under exercise stress [facility] Reticulocyte count [facility] Serum inorganic phos phate measurement [facility] XR Chest PA and Lateral [facility] Work Phone: Comprehensive [...] Internal Medicine; [facility] Work Phone: [facility] Work Phone: [facility] Work Phone: [facility] Immunizations Immunization Date Immunization Notes Care Provider Taz gilbert 04-25-2022 influenza virus vaccine, unspecified formulation Katelyn Lawton MD Work Phone: [facility] 05-31-2021 influenza, seasonal, injectable Jocelin Saunders DO Work Phone: [facility] Work Phone: 05-26-2021 COVID-Pfizer (10 MCG/0.2 ML) Jocelin Saunders DO Work Phone: [facility] Work Phone: 05-23-2021 influenza, injectabl e, quadrivalent, preservative free Dr. Jocelin Saunders Work Phone: [facility] 05-23-2021 influenza, seasonal, injectable Dr. Jocelin Saunders Work Phone: [facility] 10-20-2020 COVID-19 (Pfizer) Jocelin osullivan DO Work Phone: [facility]; [facility] Work Phone: 09-19-2020 COVID-19 (Pfizer) Jocelin Escobedo earpatricia DO Work Phone: [facility] Work Phone: 12-22-2019 tetanus toxoid, adsorbed Jocelin Saunders [facility] Work Phone: 04-09-2019 influenza, seasonal, injectable Jocelin Saunders [facility] Work Phone: Comment on above: at pharmacy 08-25-2018 influenza, injectabl e, quadrivalent, preservative free Dr. Jocelin Saunders Work Phone: [facility] 08-25-2018 influenza, seasonal, injectable Dr. Jocelin Saunders Work Phone: [facility] 05-22-2018 influenza, seasonal, injectable Jocelin Saunders [facility] Work Phone: Payers Date Payer Category Payer Medicare MEDICARE [employer] HMO PPO MEDICARE [employer] HMO PPO [id number] 2021-Present [address] [address] [place] [address] [id number] 2021 Medicare (Managed Care) MEDICARE [employer] HMO PPO [id number] 2020 Self-pay [id number] 2020 Unknown [id number] 2020 Medicare [id number] 1960 Unknown [id number] 1960 Unknown [id number] 1960 Unknown [id number] Medicare MEDICARE PART A B [id number] Unknown Unknown [id number] Unknown [id number] .[id number] Unknown [id number]. 462 Unknown [id number]. 462 Unknown [id number] 2.16.840.1.166556.3.579.2. 462 Unknown [id number] 2.16.840.1.431415.3.579.2. 462 Unknown [id number] 2.16.840.1.068009.3.579.2. 462 Unknown [id number] 2.16.840.1.710411.3.579.2. 462 Unknown [id number] 2.16.840.1.774666.3.579.2. 462 Unknown [id number] 2.16.840.1.891324.3.579.2. 462 Unknown [id number] 2.16.840.1.684629.3.579.2. 462 Unknown [id number] 2.16.840.1.558661.3.579.2. 462 Unknown [id number] [id number]. 462 Unknown [id number]. 462 Social History Date Type Detail Facility Alcohol Use: Moderate alcohol use. Compre [facility] Internal Medicine Work Phone: Comment on above: 1-2 a week Start: 07-10-2022 End: 07-28-2024 Caffeine Use [facility] Work Phone: Comment on above: [...] Medicine Work Phone: Living Situation: Living Situation: [facility] ehensive Internal Medicine; [facility] Work Phone: Pets/Animals: Pets/Animals: [facility]; [facility] Work Phone: Start: 06-03-2022 End: 06-26-2023 Tobacco smoking status NHIS Unknown if ever smoked [facility] Start: 08-25-2020 Cigarettes [facility] Start: 1960 Sex Assigned At Male W [facility] Start: 07-10-2022 End: 12-23-2023 Tobacco smoking status NHIS Smokes tobacco daily [facility] History of tobacco use Cigarette Smoker [facility] Start: 07-10-2022 Tobacco use and exposure Smokeless tobacco non-user [facility] Start: 07-23-2022 End: 08-06-2023 Alcohol intake Lifetime non-drinker (finding) [facility] Start: 07-23-2022 End: 07-28-2024 Tobacco use panel [facility] Adolescent depressio n screening assessment 2 [facility] Start: 1960 Sex Assigned At Not on file [facility] Start: 07-21-2024 Gender identity Identifies as male gender (finding) [facility] Start: 07-21-2024 Sexual orientation Heterosexual (fin ding) [facility] Start: 07-04-2022 Sex Male (finding) [facility] Medical Equipment Procedure Code Equipment Code Equipment Original Text Equipment Identifier Dates Migue fundoplication CLIP,HEMOL OCK MED WECK FDA Start: 10-15-2018 Migue fundoplication CLIP,HEMOL OCK MED CardMunchCK FDA Start: 10-15-2018 Migue fundoplication PATCH,RIVERA TID [...] MED WECK FDA Start: 10-15-2018 Imgue fundoplication PATCH,RIVERA TID THIN FDA Start: 10-15-2018 Functional Status Date Assessment Result Facility 12-21-2020 LP-IR Score 57 [facility]; [facility] Work Phone: Comment on above: INSULIN RESISTANCE Rigoberto GARCIA <--Insulin Sensitive Insulin Resistant--> Percentile in Reference PopulationInsulin Resistance ScoreLP-IR Score Low 25th 50th 75th High < 27 45 63 >63LP-IR Score is inaccurate if patient is non-fasting. .The LP-IR score is a laboratory developed index that has beenassociated with insulin resistance and diabetes risk and should beused as one component of a physician's clinical assessment. Test(s) 033662-YPF-P ; 031880-VIN-X; 309522-Zmrhkqbtirsjp; 455176-Yrtyfdptlcq, Total; 382631-QLX-R (Total); 023376-Ubvqy LDL-P; 720699-IZV Size; 685013-RM-XI Scorewas developed and its performance characteristics determinedby [employer]. It has not been cleared or approved by the Foodand Drug Administration.PATIENT WAS FASTINGPERFORMED BY: [employer] [address] [id number] BY: [employer] [id number] [facility] [id number] 04-26-2020 LP-IR Score 71 [facility] Work Phone: Comment on above: INSULIN [...] component of a physician's clinical assessment. Test(s) 051045-VXL-F ; 921285-BOX-E; 585222-Qebbefhglrxhe; 489231-Dnkydfvgiib, Total; 901057-JNR-V (Total); 725142-Tmxqv LDL-P; 045511-NCP Size; 334233-GR-RK Scorewas developed and its performance characteristics determinedby [employer]. It has not been cleared or approved by the Foodand Drug Administration.PATIENT WAS FASTINGPERFORMED BY: [address] [employer] [address] [id number] BY: [employer] [id number] [facility] [id number] 12-24-2019 LP-IR Score 69 [facility] Work Phone: Comment on above: INSULIN [...] component of a physician's clinical assessment. Test(s) 772039-KLL-W ; 642625-JFV-X; 967751-TWO-O; 605569-Mqhysjoonjjqn; 427093-Fcmpqyhwphn, Total; 579201-MSH-R (Total);499273-Nkatz LDL-P; 933726-RGD Size; 928362-NT-LG Scorewas developed and its performance characteristics determinedby [employer]. It has not been cleared or approved by the Foodand Drug Administration.PATIENT WAS FASTINGPERFORMED BY: [employer] [address] [id number] BY: [id number] [facility] [id number] 04-13-2019 LP-IR Score 62 [facility] Work Phone: Comment on above: INSULIN [...] component of a physician's clinical assessment. Test(s) 145397-DWR-G ; 748427-ETD-K; 037997-QIF-I; 205163-Ywwhephnwhsgy; 253404-Asuivsnhdiv, Total; 964693-WCF-U (Total);153747-Apphj LDL-P; 798211-YUD Size; 715786-TQ-FF Scorewas developed and its performance characteristics determinedby [employer]. It has not been cleared or approved by the Foodand Drug Administration.PATIENT WAS FASTINGPERFORMED BY: [address] [employer] [address] [id number] BY: [employer] [id number] [facility] [id number] 08-26-2018 LP-IR Score 66 [facility] Work Phone: Comment on above: INSULIN [...] PATIENT NOT FASTINGP ERFORMED BY: BN [facility] [id number] [facility] [id number] BY: CB [facility] [id number] [facility] [id number] Mental Status Date Assessment Result Facility 06-04-2022 Cognitive function Level Of Cons ciousness Awake;Alert;Appropriate;Follow s Commands [facility] Work Phone: 06-03-2022 Cognitive function Level Of Cons ciousness Awake;Alert;Appropriate;Follow s Commands [facility] Work Phone: Clinical Notes 01-20-2017 to 05-06-2025 Note Date & Type Note Facility 05-06-2025 Progress note [facility] 04-16-2025 Progress note [facility] 02-04-2025 Evaluation note Diagnosis Onset Date Resolution Chronic myeloid leukemia chronic February 04, 2025 11:18am Chronic myeloid leukemia chronic April 16, 2025 8:41am Essential (primary) hypertension chronic April 16, 2025 8:41am History of coronary artery stent placement January 20, 2017 resolved April 16, 2025 8:41am Encounter for education acute April 26, 2025 8:30am Near syncope acute April 26, 2025 8:30am Chronic myeloid leukemia chronic April 26, 2025 8:30am Chronic myeloid leukemia chronic May 06, 2025 10:46am [facility] Work Phone: 1(594) 488-833006-17-2025 Evaluation note* Diagnosis Onset Date Resolution Status Admit Date 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 January 05, 2025 10:42am Nicotine dependence, cigarettes, uncomplicated chronic December 202024 10:42am Encounter for education acute J 2024 11:00am Near syncope acute January 21 11:00am Chronic myeloid leukemia chronic January 21, 2025 11:00am Chronic myeloid leukemia chronic February 04, 2025 11:18am Chronic myeloid leukemia chronic April 16, 2025 8:41am Essential (primary) hypertension chronic April 16, 2025 8:41am History of coronary artery stent placement January 20, 2017 resolved April 16, 2025 8:41am [employer] Work Phone: 1(747) 958-118404-17-2025 Evaluation note* Diagnosis Onset Date Resolution Status [...] myeloid leukemia chronic February 04, 2025 11:18am [employer] Work Phone: 1(327) 874-683304-03-2025 Evaluation note* Diagnosis Onset Date Resolution Status Admit Date Encounter for education acute A pril 2024 11:00am Near syncope acute October 22 11:00am Chronic myeloid leukemia chronic October 22, 2024 11:00am Chronic myeloid leukemia chronic November 05, 2024 11:20am 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 Patient appreciative of information. [facility]03-19-2025 Miscellaneous Notes* Telephone Encounter - Maxine Lopez [...] Patient appreciative of information. [facility] History of Present illness Narrative* Alem Maynard, CASE FINISHER-TRAVELING PLANT OPERATOR - 07/28/2024 2:00 PM EST OUTPATIENT FOLLOW [...] encounter. Alem Maynard CNP [facility] Instructions* Patient Instructions* Nafisa Andrews RN [...] Auto 1.58 0.83 - 3.57 K/uL Abs [place] Auto 0.74 0.24 - 0.93 K/uL Abs Eos Auto 0.37 0.00 - 0.48 K/uL Abs Baso Auto 0.08 0.00 - 0.09 K/uL documented in this [facility]01-09-2024 History of Present illness Narrative* Steven Miller RN - 07/30/2023 2:00 PM EST Chronic back pain worse in the last few months. Feet feel asleep a lot of the time. 5:43 PM called patient to provide central scheduling number to schedule mri [phone]. no answer, left voice mail with information. [...] at 2:46 PM. Katelyn Lawton MD, MSCR learning support assistant Division of Hematology documented [facility] Instructions* Patient Instructions* Steven Miller RN [...] Auto 1.62 0.83 - 3.57 K/uL Abs [place] Auto 0.73 0.24 - 0.93 K/uL Abs Eos Auto 0.37 0.00 - 0.48 K/uL Abs Baso Auto 0.06 0.00 - 0.09 K/uL [facility] Microscopic observation Gram stain Nom (Sput)Gram Stain Evaluation GSACC (Normal)Comments:This specimen is of good quality and is acceptable for routinebacterial culture. [facility]; [facility] Work Phone: comment on above:This specimen is of good quality and is acceptable for routinebacterial culture.PATIENT NOT FASTINGPERFORMED BY: [facility] [id number] Lyndon [facility] [place] [id number] Information: SRC:[id number] Evaluation note* Diagnosis Onset Date Resolution Status Chronic myeloid leukemia chr onic Essential (primary) hypertension chronic History of coronary artery stent placement January 20 017 resolved Encounter for education acut e Near syncope acute Chronic myeloid leukemia chr onic Chronic myeloid leukemia [facility] Work Phone: Evaluation note* Diagnosis Onset Date Resolution Status Chronic myeloid leukemia chr onic Chronic myeloid leukemia chr onic Nicotine dependence, cigarettes, uncomplicated acute 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 acute SOB (shortness of breath) ac [place] Chronic myeloid leukemia chr onic Encounter for education acut e Chronic myeloid leukemia chr onic Chronic myeloid leukemia chr onic Encounter for education acut e Near syncope acute Chronic myeloid leukemia [facility] Work Phone: Evaluation note* Diagnosis Onset Date Resolution Status Chronic myeloid leukemia chr onic Chronic myeloid leukemia chr onic Nicotine dependence, cigarettes, uncomplicated acute 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 acute SOB (shortness of breath) ac [place] Chronic myeloid leukemia chr onic Encounter for education acut e Chronic myeloid leukemia chr onic Chronic myeloid leukemia chr onic Encounter for education acut e Near syncope acute 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 Nicotine dependence, cigarettes, uncomplicated acute 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 acute Chronic myeloid leukemia chr onic Encounter for education acut e Near syncope acute Chronic myeloid leukemia chr [facility] Work Phone: Evaluation note* Diagnosis Onset Date Resolution Status Chronic myeloid leukemia chr onic Chronic myeloid leukemia chr onic Nicotine dependence, cigarettes, uncomplicated acute 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 acute SOB (shortness of breath) ac [place] Chronic myeloid leukemia chr onic Encounter for education acut e Chronic myeloid leukemia chr onic Chronic myeloid leukemia chr 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 Nicotine dependence, cigarettes, uncomplicated acute 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 acute Chronic myeloid leukemia chr onic Chronic myeloid leukemia chr onic 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, right precision dyer fernanda Chronic myeloid leukemia chr onic Encounter for education acut e Near syncope acute Chronic myeloid leukemia chr onic [facility] Work Phone: Evaluation note* Diagnosis Onset Date Resolution Status Bilateral pleural effusion c hronic Chronic myeloid leukemia chr onic Nicotine dependence, cigarettes, uncomplicated acute 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 acute SOB (shortness of breath) ac [place] Bilateral pleural effusion c hronic Chronic myeloid [...] myeloid leukemia chr onic 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, right precision dyer fernanda Bilateral pleural effusion c hronic Chronic myeloid leukemia chr onic Chronic myeloid leukemia chr onic 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, right precision dyer fernanda Chronic myeloid leukemia chr onic 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, right precision dyer fernanda Encounter for education acut e Near syncope acute Chronic myeloid leukemia chr onic Chronic myeloid leukemia chr onic Essential (primary) hypertension chronic History of coronary artery stent placement January 20 017 resolved [facility] Work Phone: Evaluation note* Diagnosis Onset Date Resolution Status Bilateral pleural effusion c hronic Chronic myeloid leukemia chr onic Nicotine dependence, cigarettes, uncomplicated acute 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 acute SOB (shortness of breath) ac [place] Bilateral pleural effusion c hronic Chronic myeloid [...] myeloid leukemia chr onic 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, right precision dyer fernanda Bilateral pleural effusion c hronic Chronic myeloid leukemia chr onic Chronic myeloid leukemia chr onic 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, right precision dyer fernanda Chronic myeloid leukemia chr onic 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, right precision dyer fernanda Chronic myeloid leukemia chr onic Essential (primary) hypertension chronic History of coronary artery stent placement January 20 resolved Chronic myeloid leukemia chr onic 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, right precision dyer fernanda Encounter for education acut e Near syncope acute Chronic myeloid leukemia chr onic Mixed obstructive and restri ctive ventilatory defect acute Nicotine dependence, cigarettes, uncomplicated acute Bilateral pleural effusion c hronic [facility] Work Phone: Evaluation note* Diagnosis Onset Date Resolution Status Encounter for education acut e Near syncope acute Chronic myeloid leukemia chr onic Chronic myeloid leukemia chr onic Essential (primary) hypertension chronic History of coronary artery stent placement January 20 resolved Chronic myeloid leukemia chr onic [facility] Work Phone: Evaluation note* Diagnosis Acute midline low back pain with bilateral sciatica [facility] Diagnosis CML (chronic myeloid leukemia)- Primary Chronic myeloid leukemia, without mention of having achieved remission Acute midline low back pain with bilateral sciatica Lumbar radiculopathy Thoracic or lumbosacral neuritis or radiculitis, unspecified [facility] Diagnosis Onset Date Resolution Status Chronic myeloid leukemia chr onic Encounter for education acut e Near syncope acute Chronic myeloid leukemia chr onic [facility] Work Phone: Evaluation note* Diagnosis CML (chronic myeloid leukemia)- Primary Chronic myeloid leukemia, without mention of having achieved remission [facility] Additional Instructions May also consider using topical pain reliever such as Biofreeze, Bengay, Sportscreme, IcyHot, etc. to your left flank/side.[facility] Work Phone: Instructions* Name Dates Details [...] tion Online using Patient Portal and [employer] Apps Indication:Smoker Start:21-Dec-2020 Instruction Type:Patient Education How [...] tion Online using Patient Portal and [employer] Apps Indication:Smoker Start:21-Dec-2020 Instruction Type:Patient Education How [...] tion Online using Patient Portal and [employer] Apps Indication:Smoker Start:26-Jun-2021 Instruction Type:Patient Education Patient Instructions Indication:Smoker Start:21-Dec-2020 Instruction Type:Provider Instructions for Treatment How to Access Health Informa tion Online using Patient Portal and [employer] Apps Indication:Smoker Start:21-Dec-2020 Instruction Type:Patient Education How [...] tion Online using Patient Portal and [employer] Apps Indication:Smoker Start:26-Jun-2021 Instruction Type:Patient Education Patient Instructions Indication:Smoker Start:21-Dec-2020 Instruction Type:Provider Instructions for Treatment How to Access Health Informa tion Online using Patient Portal and [employer] Apps Indication:Smoker Start:21-Dec-2020 Instruction Type:Patient Education How [...] tion Online using Patient Portal and [employer] Apps Indication:Smoker Start:30-Oct-2021 Instruction Type:Patient Education Patient Instructions Indication:Smoker Start:26-Jun-2021 Instruction Type:Provider Instructions for Treatment How to Access Health Informa tion Online using Patient Portal and [employer] Apps Indication:Smoker Start:26-Jun-2021 Instruction Type:Patient Education Patient Instructions Indication:Smoker Start:21-Dec-2020 Instruction Type:Provider Instructions for Treatment How to Access Health Informa tion Online using Patient Portal and [employer] Apps Indication:Smoker Start:21-Dec-2020 Instruction Type:Patient Education How [...] tion Online using Patient Portal and [employer] Apps Indication:Smoker Start:30-Oct-2021 Instruction Type:Patient Education Patient Instructions Indication:Smoker Start:26-Jun-2021 Instruction Type:Provider Instructions for Treatment How to Access Health Informa tion Online using Patient Portal and [employer] Apps Indication:Smoker Start:26-Jun-2021 Instruction Type:Patient Education Patient Instructions Indication:Smoker Start:21-Dec-2020 Instruction Type:Provider Instructions for Treatment How to Access Health Informa tion Online using Patient Portal and [employer] Apps Indication:Smoker Start:21-Dec-2020 Instruction Type:Patient Education How [...] tion Online using Patient Portal and [employer] Apps Indication:Type II diabetes mellitus, well controlled Start:05-Mar-2022 Instruction Type:Patient Education Patient Instructions Indication:Smoker Start:30-Oct-2021 Instruction Type:Provider Instructions for Treatment How to Access Health Informa tion Online using Patient Portal and [employer] Apps Indication:Smoker Start:30-Oct-2021 Instruction Type:Patient Education Patient Instructions Indication:Smoker Start:26-Jun-2021 Instruction Type:Provider Instructions for Treatment How to Access Health Informa tion Online using Patient Portal and 3[employer] Apps Indication:Smoker Start:26-Jun-2021 Instruction Type:Patient Education Patient Instructions Indication:Smoker Start:21-Dec-2020 Instruction Type:Provider Instructions for Treatment How to Access Health Informa tion Online using Patient Portal and [employer] Apps Indication:Smoker Start:21-Dec-2020 Instruction Type:Patient Education How [...] tion Online using Patient Portal and [employer] Apps Indication:Type II diabetes mellitus, well controlled Start:05-Mar-2022 Instruction Type:Patient Education Patient Instructions Indication:Smoker Start:30-Oct-2021 Instruction Type:Provider Instructions for Treatment How to Access Health Informa tion Online using Patient Portal and [employer] Apps Indication:Smoker Start:30-Oct-2021 Instruction Type:Patient Education Patient Instructions Indication:Smoker Start:26-Jun-2021 Instruction Type:Provider Instructions for Treatment How to Access Health Informa tion Online using Patient Portal and 3[employer] Apps Indication:Smoker Start:26-Jun-2021 Instruction Type:Patient Education Patient Instructions Indication:Smoker Start:21-Dec-2020 Instruction Type:Provider Instructions for Treatment How to Access Health Informa tion Online using Patient Portal and [employer] Apps Indication:Smoker Start:21-Dec-2020 Instruction Type:Patient Education How [...] tion Online using Patient Portal and [employer] Apps Indication:Type II diabetes mellitus, well controlled Start:05-Mar-2022 Instruction Type:Patient Education Patient Instructions Indication:Smoker Start:30-Oct-2021 Instruction Type:Provider Instructions for Treatment How to Access Health Informa tion Online using Patient Portal and 3[employer] Apps Indication:Smoker Start:30-Oct-2021 Instruction Type:Patient Education Patient Instructions Indication:Smoker Start:26-Jun-2021 Instruction Type:Provider Instructions for Treatment How to Access Health Informa tion Online using Patient Portal and 3[employer] Apps Indication:Smoker Start:26-Jun-2021 Instruction Type:Patient Education Patient Instructions Indication:Smoker Start:21-Dec-2020 Instruction Type:Provider Instructions for Treatment How to Access Health Informa tion Online using Patient Portal and 3[employer] Apps Indication:Smoker Start:21-Dec-2020 Instruction Type:Patient Education How [...] tion Online using Patient Portal and [employer] Apps Indication:Type II diabetes mellitus, well controlled Start:05-Mar-2022 Instruction Type:Patient Education Patient Instructions Indication:Smoker Start:30-Oct-2021 Instruction Type:Provider Instructions for Treatment How to Access Health Informa tion Online using Patient Portal and [employer] Apps Indication:Smoker Start:30-Oct-2021 Instruction Type:Patient Education Patient Instructions Indication:Smoker Start:26-Jun-2021 Instruction Type:Provider Instructions for Treatment How to Access Health Informa tion Online using Patient Portal and 3[employer] Apps Indication:Smoker Start:26-Jun-2021 Instruction Type:Patient Education Patient Instructions Indication:Smoker Start:21-Dec-2020 Instruction Type:Provider Instructions for Treatment How to Access Health Informa tion Online using Patient Portal and [employer] Apps Indication:Smoker Start:21-Dec-2020 Instruction Type:Patient Education How [...] tion Online using Patient Portal and [employer] Apps Indication:Type II diabetes mellitus, well controlled Start:05-Mar-2022 Instruction Type:Patient Education Patient Instructions Indication:Smoker Start:30-Oct-2021 Instruction Type:Provider Instructions for Treatment How to Access Health Informa tion Online using Patient Portal and [employer] Apps Indication:Smoker Start:30-Oct-2021 Instruction Type:Patient Education Patient Instructions Indication:Smoker Start:26-Jun-2021 Instruction Type:Provider Instructions for Treatment How to Access Health Informa tion Online using Patient Portal and 3rd [employer] Indication:Smoker Start:26-Jun-2021 Instruction Type:Patient Education Patient Instructions Indication:Smoker Start:21-Dec-2020 Instruction Type:Provider Instructions for Treatment How to Access Health Informa tion Online using Patient Portal and 3rd Libertarian Apps Indication:Smoker Start:21-Dec-2020 Instruction Type:Patient Education How [...] tion Online using Patient Portal and 3rd Libertarian Apps Indication:Smoker Start:06-Jun-2022 Instruction Type:Patient Education Patient Instructions Indication:Type II diabetes mellitus, well controlled Start:05-Mar-2022 Instruction Type:Provider Instructions for Treatment How to Access Health Informa tion Online using Patient Portal and 3rd Libert[employer] Apps Indication:Type II diabetes mellitus, well controlled Start:05-Mar-2022 Instruction Type:Patient Education Patient Instructions Indication:Smoker Start:30-Oct-2021 Instruction Type:Provider Instructions for Treatment How to Access Health Informa tion Online using Patient Portal and 3rd [employer] Apps Indication:Smoker Start:30-Oct-2021 Instruction Type:Patient Education Patient Instructions Indication:Smoker Start:26-Jun-2021 Instruction Type:Provider Instructions for Treatment How to Access Health Informa tion Online using Patient Portal and 3rd Libert[employer] Apps Indication:Smoker Start:26-Jun-2021 Instruction Type:Patient Education Patient Instructions Indication:Smoker Start:21-Dec-2020 Instruction Type:Provider Instructions for Treatment How to Access Health Informa tion Online using Patient Portal and 3rd [employer] Apps Indication:Smoker Start:21-Dec-2020 Instruction Type:Patient Education How [...] tion Online using Patient Portal and 3rd [employer] Apps Indication:BMI 32.0-32.9,adult Start:28-Jun-2022 Instruction Type:Patient Education Patient Instructions Indication:Smoker Start:06-Jun-2022 Instruction Type:Provider Instructions for Treatment How to Access Health Informa tion Online using Patient Portal and 3rd Libert[employer] Apps Indication:Smoker Start:06-Jun-2022 Instruction Type:Patient Education Patient Instructions Indication:Type II diabetes mellitus, well controlled Start:05-Mar-2022 Instruction Type:Provider Instructions for Treatment How to Access Health Informa tion Online using Patient Portal and 3rd Libert[employer] Apps Indication:Type II diabetes mellitus, well controlled Start:05-Mar-2022 Instruction Type:Patient Education Patient Instructions Indication:Smoker Start:30-Oct-2021 Instruction Type:Provider Instructions for Treatment How to Access Health Informa tion Online using Patient Portal and 3rd [employer] Apps Indication:Smoker Start:30-Oct-2021 Instruction Type:Patient Education Patient Instructions Indication:Smoker Start:26-Jun-2021 Instruction Type:Provider Instructions for Treatment How to Access Health Informa tion Online using Patient Portal and 3rd Libert[employer] Apps Indication:Smoker Start:26-Jun-2021 Instruction Type:Patient Education Patient Instructions Indication:Smoker Start:21-Dec-2020 Instruction Type:Provider Instructions for Treatment How to Access Health Informa tion Online using Patient Portal and 3rd [employer] Apps Indication:Smoker Start:21-Dec-2020 Instruction Type:Patient Education How [...] tion Online using Patient Portal and 3rd [employer] Apps Indication:BMI 32.0-32.9,adult Start:28-Jun-2022 Instruction Type:Patient Education Patient Instructions Indication:Smoker Start:06-Jun-2022 Instruction Type:Provider Instructions for Treatment How to Access Health Informa tion Online using Patient Portal and 3rd [employer] Apps Indication:Smoker Start:06-Jun-2022 Instruction Type:Patient Education Patient Instructions Indication:Type II diabetes mellitus, well controlled Start:05-Mar-2022 Instruction Type:Provider Instructions for Treatment How to Access Health Informa tion Online using Patient Portal and 3rd [employer] Apps Indication:Type II diabetes mellitus, well controlled Start:05-Mar-2022 Instruction Type:Patient Education Patient Instructions Indication:Smoker Start:30-Oct-2021 Instruction Type:Provider Instructions for Treatment How to Access Health Informa tion Online using Patient Portal and 3rd [employer] Apps Indication:Smoker Start:30-Oct-2021 Instruction Type:Patient Education Patient Instructions Indication:Smoker Start:26-Jun-2021 Instruction Type:Provider Instructions for Treatment How to Access Health Informa tion Online using Patient Portal and 3rd Libert[employer] Apps Indication:Smoker Start:26-Jun-2021 Instruction Type:Patient Education Patient Instructions Indication:Smoker Start:21-Dec-2020 Instruction Type:Provider Instructions for Treatment How to Access Health Informa tion Online using Patient Portal and 3rd Libert[employer] Apps Indication:Smoker Start:21-Dec-2020 Instruction Type:Patient Education How [...] tion Online using Patient Portal and 3rd [employer] Apps Indication:BMI 32.0-32.9,adult Start:27-Sep-2022 Instruction Type:Patient Education Patient Instructions Indication:BMI 32.0-32.9,adult Start:27-Sep-2022 Instruction Type:Provider Instructions for Treatment Patient Instructions Indication:BMI 32.0-32.9,adult Start:28-Jun-2022 Instruction Type:Provider Instructions for Treatment How to Access Health Informa tion Online using Patient Portal and 3rd [employer] Apps Indication:BMI 32.0-32.9,adult Start:28-Jun-2022 Instruction Type:Patient Education Patient Instructions Indication:Smoker Start:06-Jun-2022 Instruction Type:Provider Instructions for Treatment How to Access Health Informa tion Online using Patient Portal and 3rd [employer] Apps Indication:Smoker Start:06-Jun-2022 Instruction Type:Patient Education Patient Instructions Indication:Type II diabetes mellitus, well controlled Start:05-Mar-2022 Instruction Type:Provider Instructions for Treatment How to Access Health Informa tion Online using Patient Portal and 3rd [employer] Apps Indication:Type II diabetes mellitus, well controlled Start:05-Mar-2022 Instruction Type:Patient Education Patient Instructions Indication:Smoker Start:30-Oct-2021 Instruction Type:Provider Instructions for Treatment How to Access Health Informa tion Online using Patient Portal and 3rd [employer] Apps Indication:Smoker Start:30-Oct-2021 Instruction Type:Patient Education Patient Instructions Indication:Smoker Start:26-Jun-2021 Instruction Type:Provider Instructions for Treatment How to Access Health Informa tion Online using Patient Portal and 3rd Libertarian Apps Indication:Smoker Start:26-Jun-2021 Instruction Type:Patient Education Patient Instructions Indication:Smoker Start:21-Dec-2020 Instruction Type:Provider Instructions for Treatment How to Access Health Informa tion Online using Patient Portal and 3rd Libert[employer] Apps Indication:Smoker Start:21-Dec-2020 Instruction Type:Patient Education How [...] Informa tion Online using Patient Portal and [employer] Libertarian Apps Indication:BMI 32.0-32.9,adult Start:27-Sep-2022 Instruction Type:Patient Education Patient Instructions Indication:BMI 32.0-32.9,adult Start:27-Sep-2022 Instruction Type:Provider Instructions for Treatment Patient Instructions Indication:BMI 32.0-32.9,adult Start:28-Jun-2022 Instruction Type:Provider Instructions for Treatment How to Access Health Informa tion Online using Patient Portal and 3rd [employer] Apps Indication:BMI 32.0-32.9,adult Start:28-Jun-2022 Instruction Type:Patient Education Patient Instructions Indication:Smoker Start:06-Jun-2022 Instruction Type:Provider Instructions for Treatment How to Access Health Informa tion Online using Patient Portal and 3rd [employer] Apps Indication:Smoker Start:06-Jun-2022 Instruction Type:Patient Education Patient Instructions Indication:Type II diabetes mellitus, well controlled Start:05-Mar-2022 Instruction Type:Provider Instructions for Treatment How to Access Health Informa tion Online using Patient Portal and 3rd [employer] Apps Indication:Type II diabetes mellitus, well controlled Start:05-Mar-2022 Instruction Type:Patient Education Patient Instructions Indication:Smoker Start:30-Oct-2021 Instruction Type:Provider Instructions for Treatment How to Access Health Informa tion Online using Patient Portal and 3rd [employer] Apps Indication:Smoker Start:30-Oct-2021 Instruction Type:Patient Education Patient Instructions Indication:Smoker Start:26-Jun-2021 Instruction Type:Provider Instructions for Treatment How to Access Health Informa tion Online using Patient Portal and 3rd Libert[employer] Apps Indication:Smoker Start:26-Jun-2021 Instruction Type:Patient Education Patient Instructions Indication:Smoker Start:21-Dec-2020 Instruction Type:Provider Instructions for Treatment How to Access Health Informa tion Online using Patient Portal and 3rd [employer] Apps Indication:Smoker Start:21-Dec-2020 Instruction Type:Patient Education How [...] tion Online using Patient Portal and 3rd [employer] Apps Indication:Smoker Start:30-Jan-2023 Instruction Type:Patient Education Patient Instructions Indication:Smoker Start:30-Jan-2023 Instruction Type:Provider Instructions for Treatment Patient Instructions Indication:Smoker Start:31-Dec-2022 Instruction Type:Provider Instructions for Treatment How to Access Health Informa tion Online using Patient Portal and 3rd Libert[employer] Apps Indication:Smoker Start:31-Dec-2022 Instruction Type:Patient Education How to Access Health Informa tion Online using Patient Portal and 3rd [employer] Apps Indication:BMI 32.0-32.9,adult Start:27-Sep-2022 Instruction Type:Patient Education Patient Instructions Indication:BMI 32.0-32.9,adult Start:27-Sep-2022 Instruction Type:Provider Instructions for Treatment Patient Instructions Indication:BMI 32.0-32.9,adult Start:28-Jun-2022 Instruction Type:Provider Instructions for Treatment How to Access Health Informa tion Online using Patient Portal and 3rd [employer] Apps Indication:BMI 32.0-32.9,adult Start:28-Jun-2022 Instruction Type:Patient Education Patient Instructions Indication:Smoker Start:06-Jun-2022 Instruction Type:Provider Instructions for Treatment How to Access Health Informa tion Online using Patient Portal and 3rd [employer] Apps Indication:Smoker Start:06-Jun-2022 Instruction Type:Patient Education Patient Instructions Indication:Type II diabetes mellitus, well controlled Start:05-Mar-2022 Instruction Type:Provider Instructions for Treatment How to Access Health Informa tion Online using Patient Portal and 3rd [employer] Indication:Type II diabetes mellitus, well controlled Start:05-Mar-2022 Instruction Type:Patient Education Patient Instructions Indication:Smoker Start:30-Oct-2021 Instruction Type:Provider Instructions for Treatment How to Access Health Informa tion Online using Patient Portal and 3rd [employer] Apps Indication:Smoker Start:30-Oct-2021 Instruction Type:Patient Education Patient Instructions Indication:Smoker Start:26-Jun-2021 Instruction Type:Provider Instructions for Treatment How to Access Health Informa tion Online using Patient Portal and 3rd [employer] Apps Indication:Smoker Start:26-Jun-2021 Instruction Type:Patient Education Patient Instructions Indication:Smoker Start:21-Dec-2020 Instruction Type:Provider Instructions for Treatment How to Access Health Informa tion Online using Patient Portal and 3rd [employer] Apps Indication:Smoker Start:21-Dec-2020 Instruction Type:Patient Education How [...] tion Online using Patient Portal and 3rd Libertarian Apps Indication:Smoker Start:30-Jan-2023 Instruction Type:Patient Education Patient Instructions Indication:Smoker Start:30-Jan-2023 Instruction Type:Provider Instructions for Treatment Patient Instructions Indication:Smoker Start:31-Dec-2022 Instruction Type:Provider Instructions for Treatment How to Access Health Informa tion Online using Patient Portal and 3rd [employer] Apps Indication:Smoker Start:31-Dec-2022 Instruction Type:Patient Education How to Access Health Informa tion Online using Patient Portal and 3rd [employer] Apps Indication:BMI 32.0-32.9,adult Start:27-Sep-2022 Instruction Type:Patient Education Patient Instructions Indication:BMI 32.0-32.9,adult Start:27-Sep-2022 Instruction Type:Provider Instructions for Treatment Patient Instructions Indication:BMI 32.0-32.9,adult Start:28-Jun-2022 Instruction Type:Provider Instructions for Treatment How to Access Health Informa tion Online using Patient Portal and 3rd [employer] Apps Indication:BMI 32.0-32.9,adult Start:28-Jun-2022 Instruction Type:Patient Education Patient Instructions Indication:Smoker Start:06-Jun-2022 Instruction Type:Provider Instructions for Treatment How to Access Health Informa tion Online using Patient Portal and 3rd [employer] Apps Indication:Smoker Start:06-Jun-2022 Instruction Type:Patient Education Patient Instructions Indication:Type II diabetes mellitus, well controlled Start:05-Mar-2022 Instruction Type:Provider Instructions for Treatment How to Access Health Informa tion Online using Patient Portal and 3rd [employer] Apps Indication:Type II diabetes mellitus, well controlled Start:05-Mar-2022 Instruction Type:Patient Education Patient Instructions Indication:Smoker Start:30-Oct-2021 Instruction Type:Provider Instructions for Treatment How to Access Health Informa tion Online using Patient Portal and 3rd [employer] Apps Indication:Smoker Start:30-Oct-2021 Instruction Type:Patient Education Patient Instructions Indication:Smoker Start:26-Jun-2021 Instruction Type:Provider Instructions for Treatment How to Access Health Informa tion Online using Patient Portal and 3rd Libertarian Apps Indication:Smoker Start:26-Jun-2021 Instruction Type:Patient Education Patient Instructions Indication:Smoker Start:21-Dec-2020 Instruction Type:Provider Instructions for Treatment How to Access Health Informa tion Online using Patient Portal and 3rd [employer] Apps Indication:Smoker Start:21-Dec-2020 Instruction Type:Patient Education How [...] tion Online using Patient Portal and 3rd Libertarian Apps Indication:Smoker Start:03-Apr-2023 Instruction Type:Patient Education Patient Instructions Indication:Smoker Start:03-Apr-2023 Instruction Type:Provider Instructions for Treatment cardiovascular counseling Indication:Colon cancer screening (Renamed from Encounter for screening for malignant neoplasm of colon) Start:30-Jan-2023 Instruction Type:Provider Instructions for Treatment How to Access Health Informa tion Online using Patient Portal and 3rd Libertarian Apps Indication:Smoker Start:30-Jan-2023 Instruction Type:Patient Education Patient Instructions Indication:Smoker Start:30-Jan-2023 Instruction Type:Provider Instructions for Treatment Patient Instructions Indication:Smoker Start:31-Dec-2022 Instruction Type:Provider Instructions for Treatment How to Access Health Informa tion Online using Patient Portal and 3rd Libertarian Apps Indication:Smoker Start:31-Dec-2022 Instruction Type:Patient Education How to Access Health Informa tion Online using Patient Portal and 3rd [employer] Apps Indication:BMI 32.0-32.9,adult Start:27-Sep-2022 Instruction Type:Patient Education Patient Instructions Indication:BMI 32.0-32.9,adult Start:27-Sep-2022 Instruction Type:Provider Instructions for Treatment Patient Instructions Indication:BMI 32.0-32.9,adult Start:28-Jun-2022 Instruction Type:Provider Instructions for Treatment How to Access Health Informa tion Online using Patient Portal and 3rd [employer] Apps Indication:BMI 32.0-32.9,adult Start:28-Jun-2022 Instruction Type:Patient Education Patient Instructions Indication:Smoker Start:06-Jun-2022 Instruction Type:Provider Instructions for Treatment How to Access Health Informa tion Online using Patient Portal and 3rd Libertarian Apps Indication:Smoker Start:06-Jun-2022 Instruction Type:Patient Education Patient Instructions Indication:Type II diabetes mellitus, well controlled Start:05-Mar-2022 Instruction Type:Provider Instructions for Treatment How to Access Health Informa tion Online using Patient Portal and 3rd Libertarian Apps Indication:Type II diabetes mellitus, well controlled Start:05-Mar-2022 Instruction Type:Patient Education Patient Instructions Indication:Smoker Start:30-Oct-2021 Instruction Type:Provider Instructions for Treatment How to Access Health Informa tion Online using Patient Portal and 3rd Libertarian Apps Indication:Smoker Start:30-Oct-2021 Instruction Type:Patient Education Patient Instructions Indication:Smoker Start:26-Jun-2021 Instruction Type:Provider Instructions for Treatment How to Access Health Informa tion Online using Patient Portal and 3rd Libertarian Apps Indication:Smoker Start:26-Jun-2021 Instruction Type:Patient Education Patient Instructions Indication:Smoker Start:21-Dec-2020 Instruction Type:Provider Instructions for Treatment How to Access Health Informa tion Online using Patient Portal and 3rd Libertarian Apps Indication:Smoker Start:21-Dec-2020 Instruction Type:Patient Education How [...] Work Phone: progress note Author Hector Hsu [facility] Note Date/Time April 16, 2025 9:02am [facility] [address] [place] [address] OFFICE VISIT Date of Service: 04/16/25 MR#: [id number] Acct: [id number] Name: FREDERIC OVALLES Rep #: [id number] : 1960 Provider: Dr. Margaret Hsu MD Age/Sex: 64/M [place] [facility] [place]: Signed HPI HPI History of Present [...] air Intake Visit Reasons: 1 Y FU Operator Cavity Pump Required: No Accompanied by: Self Is patient [...] Nicotine dependence Atherosclerosis of coronary artery of [place] heart without angina pectoris Obesity (BMI 30.0-34.9) [...] use well-balanced diet: about half the time uyen/roman catholic: Amish seatbelt use: always do you feel safe at home: Yes ROS Const Const: Positive for excessive sweating (With minimal exertion ); Negative for fatigue, body ache, fever(s) or chills ENT ENT: Negative for dizziness or Nosebleed/epistaxis Cardio Chest Pain: No Palpitations: No Edema: None Muscle aches with walking: None Resp Respiratory: Negative for SOB with activity, SOB at rest, SOB orthopnea\SOB lying down, Cough or paroxysmal nocturnal dyspnea [...] Today I25.10 - Atherosclerotic heart disease of [place] coronary artery without angina pectoris Plan Details 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 Jocelin Saunders, DO ~ [facility] Work Phone: Progress note Author Sawyer Delgado [facility] Note Date/Time May 06, 2025 1 1:15am [facility] [place] [address] OFFICE VISIT Date of Service: 05/06/25 1054 MR#: [id number] Acct: [id number] Name: FREDERIC OVALLES Rep #: [id number] : 1960 From: Sawyer mcmahan MD Age/Sex: 64/M Location: [facility] [place] Status: Signed HPI Subjective Date of Service [...] of CD56 and show left shift with down- regulation of CD10 and CD16. The findings are compatible with an underlying primary myeloid neoplasm. The flow cytometry analysis report from [facility] is reviewable in the patient?s EMR. BONE MARROW STUDY Slides are reviewed. [...] and megakaryocytes. ADDENDUM FISH BCR/ABL1 REPORT FROM [facility] INTERPRETATION: BCR/ABL gene rearrangement is detected. 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 Bosutinib August 10, 2022-ongoing MMR (January 2023) [facility] Medical History Chronic myeloid leukemia Low back [...] Nicotine dependence Atherosclerosis of coronary artery of [place] heart without angina pectoris Obesity (BMI 30.0-34.9) [...] use well-balanced diet: about half the time uyen/roman catholic: Amish seatbelt use: always do you feel safe [...] pain and other Details: Chronic back pain unchanged. Integumentary Integumentary: Reports systems reviewed and no addt'l complaints, except as documented and dry skin Neurologic Neurologic: Reports systems reviewed and no addt'l complaints, except as documented and paresthesias RLE and LLE; Denies headache(s) or weakness Psychiatric Psychiatric: Reports systems reviewed and no addt'l complaints, except as documented Endocrine Endocrinology: Reports systems reviewed and no addt'l complaints, except as documented Hematologic/Lymphatic Hematologic/Lymphatic: Reports systems reviewed and no addt'l complaints, except as documented; Denies easy bleeding or easy bruising Allergic/Immunologic Allergic/Immunologic: Reports systems reviewed and no addt'l complaints, except as documented Intake Vital Signs 02/04/25 11:50 04/16/25 08:34 05/06/25 10:56 05/06/25 10:59 Height 6 ft 6 ft 6 ft 6 ft Weight: 112.151 kg BMI 33.5 BP 135/71 H Blood Pressure Location Lt brachial Position Sitting Respiration 16 Pulse 62 Pulse Source Monitor Temp 97.8 F Temperature Source Temporal Artery Pulse Oximetry (%) 94 Oxygen Delivery Method room air Intake Is patient in pain?: No Allergies No Known Allergies Allergy (Verified 05/06/25 10:57) Medications ?Medication ?Instructions ?Recorded ?Confirmed ?Type aspirin 81 mg tablet,delayed 81 mg PO DAILY 09/02/18 0 04/16/25 History release carvedilol 6.25 mg tablet 6.25 mg PO BID 09/02/18/01/13 History cholecalciferol (vitamin D3) 25 1,000 unit [...] 62.5 mcg-vilant 25 mcg inhalat.powder (Trelegy Ellipta) albuterol sulfate 90 mcg/actuation 2 puff inhalation Q 4H PRN 01/05/25 04/16/25 Rx aerosol inhaler shortness of breath or wheez ing #8.5 grams sulfamethoxazole 800 1 tab PO 3XW #36 TABLETS 11/1304/16/25 Rx mg-trimethoprim 160 mg tablet dutasteride 0.5 mg capsule 0.5 mg PO QDAY 05/06/25 History gabapentin 300 mg capsule 300 mg PO TID 05/06/2505/06 History tamsulosin 0.4 mg capsule 0.4 mg PO QHS 05/06/2505/06 History Have you fallen in the past year?: No Central Venous Access Central Venous Access: No [...] no focal motor deficits Coordination / Balance: [id number] test normal Speech: speech normal Gait (Neuro): normal gait Psych mental status grossly normal Coding Level of Care Code Off vis,est,level 4 Exam Problem Focused Diagnoses Chronic myeloid leukemia C92.10 Assessment and Plan Assessment and Plan (1) Chronic myeloid leukemia: Status: Chronic Plan 64-year-old male who presented with with a mature [...] questioned and for recurrent pleural effusion). Achieved molecular response again by January 2023 and not detectable by July 2023. Date qBCR-ABL (e13a2/b2a2) 03/30/2020 159.1086 08/10/2020 0.3342 11/10/2020 0.017 02/08/2021 0.031 05/09/2021 0.0626 08/09/2021 0.0559 11/08/2021 0.2603 12/12/2021 NEG 03/22/2022 0.056 06/20/2022 0.1436 11/01/2022 0.1829 01/23/2023 <0.0032 (Neg) 04/22/2023 0.0313 07/26/2023 Neg 10/23/2023 Neg 01/21/2024 Neg 04/20/2024 Neg 07/20/2024 Neg 10/24/2024 Neg (<0.0032) 01/21/25 Neg 04/22/25 Neg Comorbid conditions: smoker with over 30 pack years cigarettes (started at age 18 averaging 1/2 to 1 pack of cigarettes daily), hypertension, coronary artery disease, cerebrovascular disease and dyslipidemia, chronic peripheral neuropathy of the lower extremities.. Plan: #1-Continue Bosutinib . #2-q. BCR/ABL every 3 months. #3 Continue Bactrim for PCP prophylaxis. #4-Lung cancer screening CT up-to-date May 2024. Prostate cancer screening follows up with urology. Patient was seen , impression and plan discussed. Sawyer Delgado MD Production Staff Worker, [facility] Divisions of Medical Oncology & Hematology Department of Internal Medicine [place] [id number] This note was generated using a voice recognition system software. Although it was reviewed by the author prior to finalization, it may still contain incorrect words, spelling, and punctuation that were not noted when reviewing prior to saving. If a clinically significant typo or inaccurately typed phrase is noted, please notify the author. Clinical Quality Measures Falls Risk Screening/Assistive Devices Have you fallen in the past year?: No 05/06/25 1115 <Electronically signed by Sawyer duron MD> Date _ Sawyer Delgado MD Cosigner Signature: Date (if applicable) CC: ~ [facility] Work Phone: Reason for referral (narrative)No reason for referral information available[facility] Work Phone: Summary Purpose Family History No [...] Records Found Name Dates Details Immunization Registry [place] - Effective on 08/26/2018. Expiration date unspecified Effective:26-Aug-2018 Name Dates Details Immunization Registry [place] - Effective on 08/26/2018. Expiration date unspecified Effective:26-Aug-2018 Name Dates Details Immunization Registry [place] - Effective on 08/26/2018. Expiration date unspecified Effective:26-Aug-2018 Name Dates Details Immunization Registry [place] - Effective on 08/26/2018. Expiration date unspecified Effective:26-Aug-2018 Name Dates Details Immunization Registry [place] - Effective on 08/26/2018. Expiration date unspecified Effective:26-Aug-2018 Name Dates Details Immunization Registry [place] - Effective on 08/26/2018. Expiration date unspecified Effective:26-Aug-2018 Name Dates Details Immunization Registry [place] - Effective on 08/26/2018. Expiration date unspecified Effective:26-Aug-2018 Name Dates Details Immunization Registry [place] - Effective on 08/26/2018. Expiration date unspecified Effective:26-Aug-2018 Name Dates Details Immunization Registry [place] - Effective on 04/13/2019. Expiration date unspecified Effective:13-Apr-2019 Name Dates Details Immunization Registry [place] - Effective on 04/13/2019. Expiration date unspecified Effective:13-Apr-2019 Name Dates Details Immunization Registry [place] - Effective on 04/13/2019. Expiration date unspecified Effective:13-Apr-2019 Name Dates Details Immunization Registry [place] - Effective on 04/13/2019. Expiration date unspecified Effective:13-Apr-2019 Name Dates Details Immunization Registry [place] - Effective on 04/13/2019. Expiration date unspecified Effective:13-Apr-2019 Name Dates Details Immunization Registry [place] - Effective on 04/13/2019. Expiration date unspecified Effective:13-Apr-2019 Name Dates Details Immunization Registry [place] - Effective on 04/13/2019. Expiration date unspecified Effective:13-Apr-2019 Name Dates Details Immunization Registry [place] - Effective on 04/13/2019. Expiration date unspecified Effective:13-Apr-2019 Name Dates Details Immunization Registry [place] - Effective on 04/13/2019. Expiration date unspecified Effective:13-Apr-2019 Name Dates Details Immunization Registry [place] - Effective on 04/13/2019. Expiration date unspecified Effective:13-Apr-2019 Name Dates Details Immunization Registry [place] - Effective on 04/13/2019. Expiration date unspecified Effective:13-Apr-2019 Name Dates Details Immunization Registry [place] - Effective on 08/26/2018. Expiration date unspecified Effective:26-Aug-2018 Name Dates Details Immunization Registry [place] - Effective on 04/13/2019. Expiration date unspecified Effective:13-Apr-2019 Name Dates Details Immunization Registry [place] - Effective on 04/13/2019. Expiration date unspecified Effective:13-Apr-2019 Name Dates Details Immunization Registry [place] - Effective on 08/26/2018. Expiration date unspecified Effective:26-Aug-2018 Name Dates Details Immunization Registry [place] - Effective on 08/26/2018. Expiration date unspecified Effective:26-Aug-2018 Name Dates Details Immunization Registry [place] - Effective on 08/26/2018. Expiration date unspecified Effective:26-Aug-2018 Name Dates Details Immunization Registry [place] - Effective on 04/13/2019. Expiration date unspecified Effective:13-Apr-2019 Name Dates Details Immunization Registry [place] - Effective on 04/13/2019. Expiration date unspecified Effective:13-Apr-2019 Name Dates Details Immunization Registry [place] - Effective on 04/13/2019. Expiration date unspecified Effective:13-Apr-2019 Name Dates Details Immunization Registry [place] - Effective on 04/13/2019. Expiration date unspecified Effective:13-Apr-2019 Name Dates Details Immunization Registry [place] - Effective on 04/13/2019. Expiration date unspecified Effective:13-Apr-2019 Name Dates Details Immunization Registry [place] - Effective on 04/13/2019. Expiration date unspecified Effective:13-Apr-2019 Name Dates Details Immunization Registry [place] - Effective on 04/13/2019. Expiration date unspecified Effective:13-Apr-2019 Name Dates Details Immunization Registry [place] - Effective on 04/13/2019. Expiration date unspecified Effective:13-Apr-2019 Advance Directive Response Recorded Date/ Time Living Will No June 03 8:01am Power of Drive Thru Order Taker No June 03, 2022 8:01am Advance Directive Response Recorded Date/ Time Living Will No June 04 10:18am Power of Drive Thru Order Taker No June 04, 2022 10:18am Name Dates Details Immunization Registry [place] - Effective on 04/13/2019. Expiration date unspecified Effective:13-Apr-2019 Name Dates Details Immunization Registry [place] - Effective on 04/13/2019. Expiration date unspecified Effective:13-Apr-2019 Name Dates Details Immunization Registry [place] - Effective on 04/13/2019. Expiration date unspecified Effective:13-Apr-2019 Name Dates Details Immunization Registry [place] - Effective on 04/13/2019. Expiration date unspecified Effective:13-Apr-2019 Name Dates Details Immunization Registry [place] - Effective on 04/13/2019. Expiration date unspecified Effective:13-Apr-2019 Advance Directive Response Recorded Date/ Time Living Will No June 04 11:18am Power of Drive Thru Order Taker No June 04, 2022 11:18am Name Dates Details Immunization Registry [place] - Effective on 04/13/2019. Expiration date unspecified Effective:13-Apr-2019 Name Dates Details Immunization Registry [place] - Effective on 04/13/2019. 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 MEDS 6 week follow up Reason for [...] Chief Complaint LLQ pain, cough sob S/P [facility] ER 3WKS - LABS/CXR PRIOR - BCR/ABL NEEDS TO BE BACK WATER ON LUNGS SOB Shortness of breath F/U AFTER [facility] - NO LABS THERAPUETIC DRUG MONITORING EKG SOB Shortness of breath CHEMO ED 1WK LABS TOX CHECK AUTOMATIC PACKER OPERATOR MEDS ROUTINE 6 week follow up 1WK [...] Chief Complaint LLQ pain, cough sob S/P [facility] ER 3WKS - LABS/CXR PRIOR - BCR/ABL NEEDS TO BE BACK WATER ON LUNGS SOB Shortness of breath F/U AFTER [facility] - NO LABS THERAPUETIC DRUG MONITORING EKG SOB Shortness of breath CHEMO ED 1WK LABS TOX CHECK AUTOMATIC PACKER OPERATOR MEDS ROUTINE 6 week follow up 1WK [...] breath CHEMO ED 1WK LABS TOX CHECK AUTOMATIC PACKER OPERATOR MEDS ROUTINE 6 week follow up 1WK LABS TOX CHECK Encounter for therapeutic drug level monitoring THERAPUTIC DRUG LEVEL 1WK LABS TOX CHECK REVIEW EKG Amb Documentation 1WK LABS TOX CHECK 2 WKS - LABS GROUP HOME MEDICATION USE GROUP HOME MEDICATION USE 2 WKS - LABS 3 [...] breath CHEMO ED 1WK LABS TOX CHECK AUTOMATIC PACKER OPERATOR MEDS ROUTINE 6 week follow up 1WK LABS TOX CHECK Encounter for therapeutic drug level monitoring THERAPUTIC DRUG LEVEL 1WK LABS TOX CHECK REVIEW EKG Amb Documentation 1WK LABS TOX CHECK 2 WKS - LABS AUTOMATIC PACKER OPERATOR MEDICATION USE AUTOMATIC PACKER OPERATOR MEDICATION USE 2 WKS - LABS 6 [...] April 16, 2025 8:41am Essential (primary) hypertension [facility] 2024 8:41am History of coronary artery stent placeme April 16, 2025 8:41am Chief Complaint Admit Date 3 MO - LABS PRIOR - BCR/ABL NEEDS TO BE BACK February 04, 2025 11:18am 1 Y FU April 16, 2025 8:41am 3 [place] - LABS PRIOR - BCR/ABL NEEDS TO BE BACK April 26, 2025 8:30am 3 MO - LABS PRIOR - BCR/ABL NEEDS TO BE BACK May 06, 2025 10:46am CAD May 11, 2025 6 :32am Coronary artery disease May 11 10:15am Reason for Visit Admit Date Chronic myeloid leukemia February 04, 2025 11:18am Chronic myeloid leukemia April 16, 2025 8:41am Essential (primary) hypertension [facility] 2024 8:41am History of coronary artery stent placeme April 16, 2025 8:41am Encounter for education April 26 8:30am Near syncope April 26, 2025 8: 30am Chronic myeloid leukemia April 26 8:30am Chronic myeloid leukemia May 06, 025 10:46am Reason for Referral Specialty Diagnoses / Procedures Referred By Emy [email or web address] Referred To Contact Diagnoses Lumbar radiculopathy Procedures MRI SPINE LUMBAR WITH AND WITHOUT CONTRAST [facility] MRI, LUMBAR SPINE COMBO Katelyn Lawton MD [address] [facility] 5[address] [place] [address] Referral ID Status Reason Start Date Expiration Date V isits Requested Visits Authorized [id number] New Request 07/30/2023 08/23/2024 1 1 Additional Source Comments (unrecognized sect ion and content) No Status Records FoundNo Status Records FoundNo Status Records FoundNo Status Records FoundNo Status Records FoundNo Status Records FoundNo Status Records Found INFORMATION SOURCE (unrecogn ized section and content) DATE CREATED AUTHOR 08/05/2018 [facility] DATE CREATED AUTHOR AUTHOR'S ORGANIZ ATION 12/22/2019 [facility] DATE CREATED AUTHOR AUTHOR'S ORGANIZ ATION 08/14/2021 [facility] DATE CREATED AUTHOR AUTHOR'S ORGANIZ ATION 06/09/2022 [facility] DATE CREATED AUTHOR AUTHOR'S ORGANIZ ATION 09/28/2022 [facility] DATE CREATED AUTHOR AUTHOR'S ORGANIZ ATION 10/10/2024 [facility] DATE CREATED AUTHOR AUTHOR'S ORGANIZ ATION 06/03/2025 [facility] Goals (unrecognized section and content) Goals may [...] Provider, Referr ing Provider Active Savi Rodriguez PHOTOCOMPOSITION KEYBOARD OPERATOR, PHOTOCOMPOSITION KEYBOARD OPERATOR-C Attending Provider Active Team Status: Active Member [...] Saunders , DO Primary Care Provider Active Rula Vazquez Attending Provider Active Team Status: Inactive Member Role Status Dates Dr. Jocelin Saunders , DO Primary Care Provider Active Dr. Hector Hsu MD Attending Provider Active Team Status: Inactive Member Role Status Dates Dr. Jocelin Saunders , DO Primary Care Provider Active Dr. Hector Hsu MD Attending Provider, Referring Pro vider Active Team Status: Inactive Member Role Status Dates Dr. Jocelin Saunders , DO Primary Care Provider, Referr ing Provider Active Karin De La Rosa PHOTOCOMPOSITION KEYBOARD OPERATOR, PHOTOCOMPOSITION KEYBOARD OPERATOR-C Attending Provider Active Team Status: Active Member Role Status Dates Dr. Jocelin Saunders , DO Primary Care Provider Active Dr. Hector [...] Delgado MD Attending Provider Active Savi Rodriguez PHOTOCOMPOSITION KEYBOARD OPERATOR, PHOTOCOMPOSITION KEYBOARD OPERATOR-C Other Provider Active Team Status: Inactive Member Role Status Dates Dr. Jocelin Saunders , DO Primary Care Provider Active Karin De La Rosa PHOTOCOMPOSITION KEYBOARD OPERATOR, PHOTOCOMPOSITION KEYBOARD OPERATOR-C Attending Provider, Referrin g Provider Active Recovery Advocate Relationship Specialty Start Date End Date Jocelni Saunders DO [address] [place] [phone] PCP - General Internal Medicine 07/10/22 Katelyn Lawton MD [address] [place] [phone] [facility] [employer] [facility] Hematology 07/04/22 Sawyer Delgado [facility] [address] [place] [address] [phone] Oncologist Hematology 07/05/22 Lamar De Oliveira, RUBÉN Registered Nurse 07/05/22 Recovery Advocate Relationship Specialty Start Date End Date Jocelin Saunders DO [address] [place] [phone] PCP - General Internal Medicine 07/10/22 Katelyn Lawton MD [address] [place] [address] [employer] Hematology 07/04/22 Sawyer Delgado [facility] [address] [place] [address] Oncologist Hematology 07/05/22 Lamar De Oliveira, RN Registered Nurse 07/05/22 Team Status: Inactive Member Role Status Dates Dr. Jocelin Saunders , Primary Care Pr ovider, Attending Provider, Referring Provider Active Recovery Advocate Relationship Specialty Start Date End Date Jocelin Saunders DO [facility] [address] [place] [phone] PCP - General Internal Medicine 07/10/22 Katelyn Lawton MD [address] [place] [phone] [employer] Hematology 07/04/22 Sawyer Delgado [facility] [address] [place] [address] Oncologist Hematology 07/05/22 Lamar De Oliveira, RN Registered Nurse 07/05/22 Recovery Advocate Relationship Specialty Start Date End Date Jocelin Saunders DO [address] [facility] [address] [place] [phone] PCP - General Internal Medicine 07/10/22 Katelyn Lawton MD [address] [place] [address] [employer] Hematology 07/04/22 Sawyer Delgado [facility] [address] [place] [address] Oncologist Hematology 07/05/22 Lamar De Oliveira, RN [...] Start: October 22, 2024 Savi Rodriguez NP, PHOTOCOMPOSITION KEYBOARD OPERATOR-C Other Provider Active St art: October 22, [...] January 05, 2025 Loulou Gunter NP-C Attending Provider Active Start: January 05, 2025 [...] January 05, 2025 Loulou Gunter NP-C Attending Provider Active Start: January 05, 2025 End: January 05, 2025 Team Status: Active Member Role/Relationship Status Dates Dr. Jocelin Saunders DO Primary Care Provider Active Start: January 21, 2025 Dr. Jocelin Saunders DO Referring Provider Active Start: January 21, 2025 Dr. Sawyer Delgado MD Attending Provider Active Start: January 21, 2025 Savi Rodriguez NP, PHOTOCOMPOSITION KEYBOARD OPERATOR-C Other Provider Active St art: January 21, 2025 Team Status: Inactive Member Role/Relationship Status Dates Dr. Jocelin Saunders DO Primary Care Provider Active Start: February 04, 2025 End: February 04, 2025 Dr. Jocelin Saunders DO Referring Provider Active Start: February 04, 2025 End: February 04, 2025 Savi Rodriguez NP, PHOTOCOMPOSITION KEYBOARD OPERATOR-C Attending Provider Active Start: February 04, 2025 [...] Active Start: January 21, 2025 Savi Rodriguez NP, PHOTOCOMPOSITION KEYBOARD OPERATOR-C Nurse Practitioner Active Start: January 21, 2025 Team Status: Inactive Member Role/Relationship Status Dates Dr. Jocelin Saunders DO Primary care physician Active Start: February 04, 2025 End: February 04, 2025 Dr. Jocelin Puja , DO Referring Provider Active Start: February 04, 2025 End: February 04, 2025 Savi Rodriguez PHOTOCOMPOSITION KEYBOARD OPERATOR, PHOTOCOMPOSITION KEYBOARD OPERATOR-C Attending physician Active Start: February 04, 2025 [...] April 16, 2025 End: April 16, 2025 Team Status: Inactive Member Role/Relationship Status Dates Dr. Jocelin Saunders DO Primary care physician Active Start: February 04, 2025 End: February 04, 2025 Dr. Jocelin Saunders DO Referring Provider Active Start: February 04, 2025 End: February 04, 2025 Savi Rodriguez PHOTOCOMPOSITION KEYBOARD OPERATOR, PHOTOCOMPOSITION KEYBOARD OPERATOR-C Attending physician Active Start: February 04, 2025 [...] April 16, 2025 End: April 16, 2025 Team Status: Active Member Role/Relationship Status Dates Dr. Jocelin Saunders DO Primary care physician Active Start: April 26, 2025 Dr. Jocelin Saunders DO Referring Provider Active Start: April 26, 2025 Dr. Sawyer Delgado MD Attending physician Active Start: April 26, 2025 Savi Rodriguez PHOTOCOMPOSITION KEYBOARD OPERATOR, PHOTOCOMPOSITION KEYBOARD OPERATOR-C Nurse Practitioner Active Start: April 26, 2025 Dr. Hector Hsu MD Nurse Practitioner Active S tart: April 26, 2025 Team Status: Inactive Member Role/Relationship Status Dates Dr. Jocelin Saunders DO Primary care physician Active Start: May 06, 2025 End: May 06, 2025 Dr. Jocelin Saunders DO Referring Provider Active Start: May 06, 2025 End: May 06, 2025 Dr. Sawyer Delgado MD Attending physician Active Start: May 06, 2025 End: May 06, 2025 Team Status: Inactive Member Role/Relationship Status Dates Dr. Jocelin Saunders DO Primary care physician Active Start: May 11, 2025 End: May 11, 2025 Dr. Hector Hsu MD Attending physician Active Start: May 11, 2025 End: May 11, 2025 Dr. Hector Hsu MD Referring Provider Active S tart: May 11, 2025 End: May 11, 2025 Team Status: Active Member Role/Relationship Status Dates Dr. Jocelin Saunders DO Primary care physician Active Start: May 11, 2025 Dr. Hector Hsu MD Attending physician Active Start: May 11, 2025 Dr. Hector Hsu MD Referring Provider Active S tart: May 11, 2025 Dr. Hector Hsu MD Nurse Practitioner Active S tart: May 11, 2025 Reason for Visit (unrecogniz ed section [...] BE BASED ON THE PRIMARY CLINICAL RECORDS. [employer] provides no warranty or guarantee of the accuracy or completeness of information in this document.
[2025-06-18] MEDS: Lactated Ringers 1,000 ML 15 ML IV (06:34)
--- NOTE | 2025-06-18 07:03 | PRE.ANES_ITS ---
ASA Classification* ASA Classification ASA Classification: 3 Assessment & Plan Anesthesia* Anesthesia Assessment Anesthesia Assessment: Discussed sedation and/or anesthesia options, risks, benefits, and alternatives with patient/parents/legal guardian/POA. Questions invited. The patient/parents/legal guardian/POA seems to understand and agrees to proceed with anesthesia plan. Reviewed the physical assessment, medical history, allergy history and patient home medications list prior to surgery/procedure/anesthetic and documented any changes. Performed airway and anesthesia risk assessments. Anesthesia Type Anesthesia Type: General Anesthesia Focused Assessment* Temperature: 97.8 F Pulse Rate: 60 Blood Pressure: 142/71 Respiratory Rate: 18 Pulse Ox: 96 Airway Assessment Mouth opens: >3 cm Mallampati Score: II Labs Anesthesia Preop lab: CBC WBC, (4.4-11.0) 6.7 K/mm3 05/20/25, 12:02 RBC, (4.6-6.2) 5.10 M/mm3 05/20/25, 12:02 Hgb, (13.0-16.5) 14.9 g/dL 05/20/25, 12:02 Hct, (40-54) 44.6 % 05/20/25, 12:02 Plt Count, (150-450) 231 K/mm3 05/20/25, 12:02 CHEMISTRY Potassium, (3.3-5.1) 4.1 mmol/L 05/20/25, 12:02 Sodium, (133-145) 140 mmol/L 05/20/25, 12:02 Magnesium, (1.5-2.2) 2.3 mg/dL H 01/21/25, 10:00 Phosphorus, (2.7-4.5) 2.6 mg/dL L 01/21/25, 10:00 BUN, (4-19) 11 mg/dL 05/20/25, 12:02 Creatinine, (0.70-1.20) 0.77 mg/dL 05/20/25, 12:02 Glucose, (70-99) 156 mg/dL H 05/20/25, 12:02 TSH, (0.300-4.200) 3.320 uIU/mL 04/26/25, 08:35 COAG PT, (11.7-14.9) 13.0 SECONDS 09/23/20, 08:59 Pre-Assessment Diagnosis/Proposed Procedure Planned Operative Procedure(s): (N/A) Cysto,Transurethral Resection Prostate Anesthesia History 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 When Was Last Pacemaker Check QUESTION #4 FULL TEXT: You/Your Family Experience fever (hyperthermia) with Anesthesia Last Oral Intake Last Oral intake: Last Oral Intake NPO since 04:00 06/18/25 06:22 Meds taken in AM with sips of Yes 06/18/25 06:22 water? Meds patient instructed to Bosutinib 06/18/25 06:22 take am of surgery PONV PONV - solar installation manager: PONV - solar installation manager Female No 06/09/25 14:34 HX of Motion Sickness No 06/09/25 14:34 HX of N/V After Surgery No 06/09/25 14:34 Non-Smoker No 06/09/25 14:34 Duration of Surgery greater Yes 06/09/25 14:34 than 60 minutes Number of Risk Factors 1 06/09/25 14:34 PONV Score Low Risk 06/09/25 14:34 Height & Weight Height & Weight: Anesthesia: Height & Weight Height 6 ft 06/18/25 06:22 Weight: 114 kg 06/18/25 06:22 Body Mass Index (BMI) 34.0 06/18/25 06:22 Respiratory Assessment Respiratory Assessment - solar installation manager: Respiratory Tract Infection Hx - solar installation manager Hx Respiratory Tract Infection No 06/09/25 14:34 STOP Sleep Apnea STOP Sleep Apnea - solar installation manager: STOP Sleep Apnea - solar installation manager Hx Hypertension Yes: CONTROLLED WITH MED 06/09/25 14:34 Hx Sleep Apnea No 06/09/25 14:34 CPAP No 12/23/23 17:00 BIPAP No 12/23/23 10:40 Do you snore loudly (louder No 06/09/25 14:34 than talking or can be heard Do you often feel tired/ No 06/09/25 14:34 fatigued/ sleepy during daytime? Has anyone observed you stop No 06/09/25 14:34 breathing during sleep? STOP Results Negative 06/09/25 14:34 QUESTION #5 FULL TEXT : Do you snore loudly (louder than talking or can be heard through closed doors)? Tobacco Use History Tobacco Use History - solar installation manager: Tobacco Use History - solar installation manager Tobacco Use Smoking Status Current every day smoker 06/09/25 14:34 Hx Tobacco Use Yes 06/09/25 14:34 Years Smoking Packs Smoked per Day 0.5 06/09/25 14:34 Smoking Cessation Date was within the last 15 years Hx Smoking Cessation Date Hx Smoking Cessation Counseling Hematologic Medial History Hematologic Hx - solar installation manager: Hematologic Medical Hx - director network development Hx of Blood Transfusion No 06/09/25 14:34 Hx of Transfusion in last 3 No 06/09/25 14:34 Months Date of Last Transfusion (if within last 3 months) Ever experience any problems No 06/09/25 14:34 with transfusion(s)? Specify any problems Hx of Preganancy in last 3 N/A 06/09/25 14:34 Months Nurse Filling Out Transfusion NBUCHER 06/09/25 14:34 & Questions: Date: 06/09/25 06/09/25 14:34 Time: 14:37 06/09/25 14:34 Patient unable to answer at this time (ie. confused, unrespo /Reproduction History /Reproductive History - solar installation manager: /Reproductive Hx- solar installation manager Hx Now No 06/09/25 14:34 Gestational Age (in weeks): EDC: Hx Hx Para Hx Section SAB No 06/09/25 14:34 Does the father of the baby or his family experience fever w Father of the baby Malignant Hypertension history comment Active Medications Active Medications: Current Medications Generic Name Dose Route Start Last Admin Trade Name Freq PRN Reason Stop Dose Admin Cefazolin Sodium 2 gm/ Sodium 110 mls @ 200 mls/hr 06/18/25 07:30 Chloride IV 06/18/25 08:02 INTRAOP ONE Lactated Ringer's 1,000 mls @ 15 mls/hr 06/18/25 06:15 06/18/25 06:34 IV 15 mls/hr .Q48H MARIA DOLORES Administration PFSH Medical History Wears glasses Wears dentures Cancer Prostate disease BPH (benign prostatic hyperplasia) High cholesterol History of hiatal hernia Smoker Shortness of breath on exertion COPD (chronic obstructive pulmonary disease) History of Holter monitoring History of echocardiogram History of stress test Cardiology follow-up encounter Hypertension Low back pain 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, right Tobacco use disorder, continuous Encounter for screening for malignant neoplasm of lung in current smoker with 30 pack year history or greater Pneumonia Chronic myeloid leukemia Fatigue Near syncope Fracture of great toe, right, open Unspecified injury of right foot, sequela Leukocytosis 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) History of ST elevation myocardial infarction (STEMI) (01/20/17) Hyperlipidemia Essential (primary) hypertension Nicotine dependence Atherosclerosis of coronary artery of [place] heart without angina pectoris Obesity (BMI 30.0-34.9) Hiatal hernia with GERD History of back problems Home Medications ?Medication ?Instructions ?Recorded ?Last Taken ?Type aspirin 81 mg tablet,delayed 81 mg PO DAILY HEART HEAL TH 09/02/18 06/17/25 History release carvedilol 6.25 mg tablet 6.25 mg PO BID HTN 09/02/18 06/17/25 History cholecalciferol (vitamin D3) 25 1,000 unit PO DAILY MOORE PPLEMENT 09/02/18 06/17/25 History mcg (1,000 unit) capsule atorvastatin 80 mg tablet 80 mg PO QHS HLD 12/15/19 History vitamin E 200 unit capsule 200 unit PO DAILY SUPPLEMEN T 08/25/20 06/17/25 History ascorbic acid (vitamin C) 500 mg 500 mg PO Q12H SUPPLE MENT 09/06/22 06/17/25 History capsule,extended release bosutinib 100 mg tablet 400 mg PO DAILY LEUKEMIA 06/18/25 History fluticasone fur. 100 mcg-umeclid 1 inh inhalation Q24H COPD #60 ea 07/24/24 06/16/25 Rx 62.5 mcg-vilant 25 mcg inhalat.powder (Trelegy Ellipta) albuterol sulfate 90 mcg/actuation 2 puff inhalation Q 4H PRN 01/05/25 Unknown Rx aerosol inhaler shortness of breath or wheez ing #8.5 grams dutasteride 0.5 mg capsule 0.5 mg PO QDAY BPH 05/06/25 06/17/25 History tamsulosin 0.4 mg capsule 0.4 mg PO QHS BPH 05/06/25 1 08/17/24 History ramipril 2.5 mg capsule 2.5 mg PO DAILY HTN #30 caps 06/02/25 06/17/25 Rx Allergy/AdvReac Type Severity Reaction Status Date / Time No Known Allergies Allergy Verified 06/18/25 06:18 Family History Father Colon cancer Diabetes Heart disease Hypertension CAD (coronary artery disease) Sister Breast cancer Mother CAD (coronary artery disease) Hypertension Heart disease Surgical History History of cardiac catheterization Status post laser lithotripsy of ureteral calculus History of bone marrow biopsy (04/13/20) History of bilateral inguinal hernia repair (08/2018) Status post laparoscopic Donovan fundoplication (10/15/18) History of coronary artery stent placement (01/20/17) Social History household members: spouse Smoking Status: Current every day smoker tobacco type: cigarettes Tobacco: How many years used: 40 Electronic Cigarette Use: not used second hand exposure: No quit status: considering quitting alcohol intake: current alcohol intake frequency: a few times a week Alcohol type: beer substance use type: does not use well-balanced diet: about half the time uyen/pentecostalism: Episcopalian seatbelt use: always do you feel safe at home: Yes Review of Systems (Anesthesia) ROS Narrative System reviewed and no additional complaints, except as documented.
[2025-06-18] MEDS: Lactated Ringers 1,000 ML 1000 ML IV (07:28)
[2025-06-18] MEDS: Midazolam 2 MG/2 ML Syringe IV (07:28)
[2025-06-18] MEDS: Cefazolin 1 GM/5 ML Vial 2 GM IV (07:29)
[2025-06-18] MEDS: Lidocaine 1% (5 ml sdv) 5 ML Vial IV (07:35)
[2025-06-18] MEDS: fentaNYL 100 MCG/2 ML Ampul 200 MCG IV (08:16)
--- NOTE | 2025-06-18 08:17 | OP.PCM_ITS ---
Operative Report (Standard) Operative Information Date of Procedure: 06/18/25 Pre-Operative Diagnosis: BPH with obstruction Post-Operative Diagnosis: The same Surgery/Procedure Performed: Transurethral section of prostate airport location manager: No Type of Anesthesia: General RN Documented Start/Stop Times: Operation Date: 06/18/25 07:30 Case Time Into Pre-Op 06/18/25 06:04 Out of Pre-Op 06/18/25 07:22 Anesthesia Start 06/18/25 07:28 Into Room 06/18/25 07:28 Procedure Start 06/18/25 07:45 Procedure End 06/18/25 08:08 Anesthesia End 06/18/25 08:16 Out of Room 06/18/25 08:16 Procedure Start Time: 07:45 Procedure Stop Time: 08:18 Select all DRAINS/GRAFTS/IMPLANTS that apply: Drains Drain details: 22fr 3 way Estimated Blood Loss: Minimal Specimen collected: No Description of surgery: In the preoperative setting I discussed with the patient how the surgery would be done with expect afterwards. We discussed how a prostate resection is done and we discussed the risk of the surgery including, bleeding, infection, retrograde ejaculation, changes with ejaculation or intercourse,. We discussed the possibility that the resection of the prostate may not alleviate his urinary symptoms. We discussed the small risk of developing scar tissue along the urethral channel and strictures. We also discussed the chance of the prostate could grow back and he may need further surgery or treatment in the future for prostate problems. Patient was taken back to the operating room, timeout procedure was performed, he was identified and marked and placed on the operating room table. He underwent general anesthesia. He was placed in dorsolithotomy position. Penis and testicles were prepped and draped in usual sterile fashion. Went into the bladder using the visual obturator with a resectoscope. Once inside the bladder identified the right and left ureteral orifice. I then identified the prostate and the anatomy of the prostate. I marked out the area of the sphincter and the verumontanum was identified. I then proceeded with the prostate resection first resected the median lobe. And then resected the right lobe of the prostate. Then to resect the left lobe of the prostate. I then resected the apical tissue of the prostate. This was a complete resection of all obstructive tissue to improve voiding and relieve obstruction. I then made sure that there was no injury to the sphincter or the verumontanum was still intact. At the end of the resection all the chips were Ellik out of the bladder. I then identified the left and right ureteral orifice and these were confirmed to be in good position and effluxing and not injured. The resectoscope was removed, a 22 Lebanese catheter was placed into the bladder on continuous irrigation. And the urine was fairly light pink color and draining normally. He was taken back to the PACU in good condition. CPT 02697 Surgical Findings: Prostate resected widely open Complications Complications: No Admit VTE Documentation VTE Present on Admission: No VTE Mechan Device Prophylaxis: [facility] Prophylaxis ordered?: No
--- NOTE | 2025-06-18 08:17 | PCM.DC ---
Discharge Instructions DC O2, CPAP, BIPAP needs Home O2 Discharge instructions: No Dressing / Incision Discharge Activity: Return to Normal Activity and May Not Drive (while taking narcotic pain medications.) Dressing / Incision Call your doctor if you observe: Fever of 101 or Higher Follow Up Care Please Follow Up With: Rich Taylor MD When: Call [phone] for an appointment Test Results: Test results from this visit will be discussed in further detail at your follow-up appointment, if applicable. Discharge Plan Admission Primary Reason for Your Visit: turp Attending Provider: Rich Taylor Primary Care Provider: Lilly Woody Instructions Patient Instructions: TURP, TURP Home Recovery, TURP Hospital Recovery Print Language: Luxembourgish Discharge Orders/Prescriptions Prescriptions: New cephalexin 500 mg capsule 500 mg PO TID Qty: 15 0RF Continued carvedilol 6.25 mg tablet 6.25 mg PO BID cholecalciferol (vitamin D3) 1,000 unit capsule 1,000 unit PO DAILY atorvastatin 80 mg tablet 80 mg PO QHS bosutinib 100 mg tablet 400 mg PO DAILY ascorbic acid (vitamin C) 500 mg Capsule, Extended Release 500 mg PO Q12H albuterol sulfate 90 mcg/actuation HFA aerosol inhaler 2 puff inhalation Q4H PRN (Reason: shortness of breath or wheezing) Qty: 8.5 6RF Rx Instructions: administer with spacer vitamin E 200 UNIT capsule 200 unit PO DAILY Trelegy Ellipta 100-62.5-25 mcg blister with device 1 inh INHALATION Q24H Qty: 60 11RF ramipril 2.5 mg capsule 2.5 mg PO DAILY Qty: 30 6RF Held aspirin 81 mg tablet,delayed release (DR/EC) 81 mg PO DAILY Hold Instructions: Resume on 07/02/25. Discontinued tamsulosin 0.4 mg capsule 0.4 mg PO QHS dutasteride 0.5 mg capsule 0.5 mg PO QDAY Referrals / Follow Up: Rich Taylor MD [Med Staff - Active Staff, Urology] Lilly Woody NP-C [Primary Care Provider, Family Practice] Disposition Disposition (needs filled in before D/C Order can be placed): Home, Self Care
--- NOTE | 2025-06-18 08:23 | PCM.POST.ANE ---
Anesthesia: Postop Eval I Current Vital Signs Temperature: 97.9 F Pulse Rate: 78 Blood Pressure: 161/88 Respiratory Rate: 20 Pulse Ox: 98 Oxygen Delivery Method: Venturi Mask Oxygen Flow Rate (L/min): 8 Assessment Airway patent: Yes Spontaneous unlabored respirations: Yes Mental status: Awake and Calm nausea: No Vomiting: No Anesthesia Complication: No Fluid Hydration Crystalloid volume administer (ml): 500 Total IV fluid infused: 500 Progress Note Anesthesia document: Postop Eval 1 completed: Yes
--- OUTSIDE RECORDS SUMMARY | 2025-06-18 09:01 | XMS RPT_ITS | CCD ---
Author Organization [facility] Care Team Providers Care Brand Sales Consultant Name Role Phone JANNETH ACOSTA (SEARCH MANAGER-C) Unavailable Unavai Jocelin Reyes Unavailable Wolfgang [...] Mg Blake Unavailable Wolfgang Thompson MD Unavailable [phone] Isckarus, Mansour Unavailable Sofy Malik Unavailable Vinod Wyman LPN Unavailable Unavailable Polina Bhat LPN Unavailable Unavailable Gravius INEZ, Eufemia Unavailable Unavailable Messenger Talia MONTANA Unavailable Unavailable Micki VACUUM CASTER, Terese Unavailable Unavailable Unavailable Unavailable Slarb VACUUM CASTER, Letty Unavailable Unavailable PujaNatalie blanton DOhleen Unavailable Dr. Jocelin Saunders Primary Care Provider Dr. Jocelin Saunders Referring Provider Dr. Hector Hsu Attending Provider Dr. Sawyer Delgado Attending Provider Jocelin Saunders DO Unavailable Dr. Mg Blake Unavailable Jay HICKS, Wolfgang Quiles Unavailable Sawyer Delgado Unavailable Helena Sofy San Unavailable Garo VACUUM CASTER, Vinod Unavailable Unavailable Gravius APPLE SORTER, Eufemia Unavailable Unavailable Russell APPLE SORTER, Kayela Unavailable Unavailable Cross VACUUM CASTER, Polina Unavailable Unavailable Patrick RN, Talia Unavailable Unavailable Micki VACUUM CASTER, Terese Unavailable Unavailable Unavailable Unavailable JADA BERNAL Attending Unava ilable JOCELIN SAUNDERS Primary Care Unavailable Dr. Jocelin Saunders Primary Care Provider Dr. Jocelin Saunders Referring Provider Dr. Sawyer Delgado Attending Provider Dr. John Brooks Attending Provider Dr. John Brooks Referring Provider Dr. John Brooks Other Provider Dr. Gallito Malcolm Attending Provider Michael RESP THERAPIST, RESP THERAPIST-C Savi Attending Provider Dr. Hector Hsu Attending [...] Provider Dr. Sawyer Delgado Referring Provider Michael RESP THERAPIST, RESP THERAPIST-C Savi Attending Provider Dr. Luke Campbell Attending Provider Rula Vazquez Attending Provider Unavailabl e Dr. Hector Hsu Other Provider Estrella RESP THERAPIST, RESP THERAPIST-C Karin Attending Provider [facility] Unavailable Unavailable Dr. Jocelin Saunders Primary Care Provider Dr. Jocelin Saunders Referring Provider Dr. Hector Hsu Attending Provider Dr. Sawyer Delgado Attending Provider Katelyn Lawton MD Unavailable Danny [facility] Unavailable Lamar De Oliveira RN Unavailable Unavailable Jocelin Saunders DO Primary Care Provider Dr. Jocelin Saunders Primary Care Provider Dr. Jocelin Saunders Referring Provider Dr. Sawyer Delgado Attending Provider JOCELIN SAUNDERS Referring Unavailable JOCELIN SAUNDERS Primary Care Unavailable KATELYN LAWTON Attending Unavailable Dr. Jocelin Saunders DO Primary Care Provider Dr. Jocelin Saunders DO Referring Provider Dr. Sawyer Delgado MD Attending Provider Michael RESP THERAPIST-C, Savi Other Provider Rufener RESP THERAPIST-C, Loulou Franklin Attending Provider Puja DO, Dr. Monreal Primary Care Provider [phone] Puja DO, Dr. Monreal Referring Provider Danny HICKS, Dr. Jacques Attending Provider Michael RESP THERAPIST-C, Saiv Other Provider Michael RESP THERAPIST-C, Savi Attending Provider Puja DO, Dr. Monreal Primary Care Physician Puja DO, Dr. Monreal Referring Provider Rufener RESP THERAPIST-C, Loulou Franklin Attending Physician Danny HICKS, Dr. Jacques Attending Physician Michael RESP THERAPIST-C, Savi Nurse Practitioner Michael RESP THERAPIST-C, Savi Attending Physician Shadi HICKS, Dr. Young Attending Physician Puja DO, Dr. Monreal Primary Care Physician Puja DO, Dr. Monreal Referring Provider Danny HICKS, Dr. Jacques Attending Physician Michael RESP THERAPIST-C, Savi Nurse Practitioner Shadi HICKS, Dr. Young Nurse Practitioner Shadi HICKS, Dr. Young Referring Provider Puja, Jocelin Primary Care Unavailable Puja, Jocelin Referring Unavailable Sawyer Delgado Attending Unavailable Puja, Jocelin Referring Unavailable Michael RESP THERAPIST, Savi Consulting Unavailable Sawyer Delgado Attending Unavailable Puja, Jocelin Primary Care Unavailable Hector Hsu Consulting Unavailable Puja, Jocelin Referring Unavailable De La Rosa RESP THERAPIST, Karin Attending Unavailable Puja, Jocelin Primary Care Unavailable Puja, Jocelin Referring Unavailable Isckarus, Mansour Attending Unavailable Puja, Jocelin Primary Care Unavailable Puja, Jocelin Primary Care Unavailable Rich Taylor Attending Unavailable ClaudiaRich Admitting Unavailable Puja, Jocelin Primary Care Unavailable Shadi, Hector Attending Unavailable Shadi, Hector Referring Unavailable Puja, Jocelin Primary Care Unavailable Estrella RESP THERAPIST, Karin Referring Unavailable Estrella RESP THERAPIST, Karin Attending Unavailable Puja, Jocelin Primary Care Unavailable Jhonatan Dunn Referring Unavailable Jhonatan Dunn Attending Unavailable Puja, Jocelin Primary Care Unavailable Shadi, Curlew Referring Unavailable Shadi, Curlew Attending Unavailable Shadi, Hector Consulting Unavailable Puja, Jocelin Referring Unavailable Isckarus, Mansour Attending Unavailable Puja, Jocelin Primary Care Unavailable Puja, Jocelin Primary Care Unavailable Puja, Jocelin Referring Unavailable Loulou Gunter Attending Unavailable Puja, Jocelin Primary Care Unavailable Puja, Jocelin Referring Unavailable Michael RESP THERAPIST, Savi Attending Unavailable Puja, Jocelin Primary Care Unavailable Puja, Jocelin Referring Unavailable Shadi, Curlew Attending Unavailable Medications Current Medications Medication Drug Class(es) Dates Sig (Normalized) Sig (Original) [id number] 200 actuat albuterol 0.09 mg/actuat metered dose [...] Start: 09-06-2022 take 1 capsule by mo [facility] every twelve hours Start: 04-05-2020 take 1000 [...] bedtime Start: 05-11-2019 take 1 tablet by [facility] once daily Atorvastatin Calcium 80 MG Oral [...] Start: 03-15-2023 take 4 tablets by mo [facility] once daily at mealtime bosutinib 100 MG [...] take 1 capsule by mouth once daily Ikacwnjlyhk-Mggdvdpvb-Ju lanter (20 sources) Anticholinergic, Corticosteroid, beta2-Adrenergic Agonist [...] inhaler 07/23/2023 Active Start: 06-26-2023 End: 07-24-2024 Vmladrzsdvq-Wcqlmxuuz-Gaphrm er (Trelegy Ellipta) 100-62.5-25 mcg blister with device Discontinued 1 NMA INHALATION Q24H 60 June 26, 2023 9:29am July 24, 2024 1:16pm Start: 06-26-2023 End: 07-24-2024 Phacggmpnza-Znmzyweag-Ludkop er (Trelegy Ellipta) 100-62.5-25 mcg blister with device Discontinued 1 NMA INHALATION Q24H 60 June 26, 2023 9:29am July 24, 2024 1:16pm Start: 06-26-2023 Fluticasone-Um eclidin-Vilanter (Trelegy Ellipta) 100-62.5-25 mcg blister with device Active 1 INH INHALATION Q24H 60 June 26, 2023 9:29am Start: 09-18-2022 End: 06-26-2023 Ezejzijtqfp-Iwalsvpgk-Yfiqem er (Trelegy Ellipta) 100-62.5-25 mcg blister with device Discontinued 1 NMA INHALATION Q24H 60 September 18, 2022 11:18am June 26, 2023 9:30am Start: 09-18-2022 End: 06-26-2023 Knqzoemyzbf-Bnmoiqmgl-Uisntg er (Trelegy Ellipta) 100-62.5-25 mcg blister with device Discontinued 1 NMA INHALATION Q24H September 18, 2022 11:18am June 26, 2023 9:30am Start: 09-18-2022 End: 06-26-2023 Jafsjnldcti-Qqgpfbwee-Isaldm er (Trelegy Ellipta) 100-62.5-25 mcg blister with [...] 18, 2022 11:18am Start: 09-06-2022 End: 09-18-2022 Svfkwygqjzj-Zazyzufkc-Jepfsp er (Trelegy Ellipta) 100-62.5-25 mcg Blister With Device Discontinued 1 NMA INHALATION Q24H September 06, 2022 1:00am September 18, 2022 11:18am Start: 09-06-2022 End: 09-18-2022 Aiodntbgydm-Ksymyefdk-Jisvkq er (Trelegy Ellipta) 100-62.5-25 mcg Blister With Device Discontinued 1 INH INHALATION Q24H September 06, 2022 12:00am September 18, 2022 10:18am Start: 09-06-2022 End: 09-18-2022 Whqtxzdhbml-Xicvqfcim-Kbnhdr er (Trelegy Ellipta) 100-62.5-25 mcg Blister With [...] every six hours as needed for pain [place] 8-Ykt-Tlt-Fish Oil (11 sources) Start: 05-12-2020 take 1 capsule by mouth once daily [place] 8-Spq-Sll-Fish Oil Active 1 CAP PO DAILY May 12, 2020 12:00am Start: 05-12-2020 take 1 capsule by mo [facility] once daily [place] 0-Ofj-Ubk-Fish Oil Active 1 CAP PO DAILY May [...] not having achieved remission Comment on above: [facility] mg [...] tablet (20 sources) Start: 04-25-2020 End: 12-21-2020 [place] 9-Dca-Pyo-Fish Oil 500 MG capsule,delayed release(DR/EC) (4 sources) Start: 05-12-2020 End: 11-05-2024 [place] 2-Qxd-Luv-Fish Oil 500 MG capsule,delayed release(DR/EC) Discontinued 1 NMA PO DAILY May 12, 2020 12:00am November 05, 2024 11:39am omega-3 acid ethyl esters (care home) 1000 mg oral capsule (15 sources) Start: 09-02-2018 End: 12-15-2019 [place] 7-Yfs-Eme-Fish Oil (Fish Oil) 1,000 mg (120 mg-180 [...] disease (20 sources) Atherosclerotic heart disease of [place] coronary artery without angina pectoris; Translations: [Multi [...] Screeningon 05-26-[address] Lung Screening [facility] Imaging Services [address] [place] [address] Lung Screening MR#: [id number] Acct: [id number] Name: FREDERIC OVALLES Rep #: [id number] : 1960 M 64 From: Jeovanny medeiros MD PCP: Dr. Jocelin Saunders, DO Status: [facility] CLI Study: Low Dose CT Lung Screening Date of Exam: 05/26 Exam# [id number] Ordering Dr: Karin De La Rosa RESP THERAPIST RESP THERAPIST-C PROCEDURE: LOW DOSE CT LUNG SCREENING 05/26/2025 [...] use of iterative reconstruction technique). REFERENCE LINK: [employer] Lung-RADS RADIATION DOSE SUMMARY: CTDlvol: 4.02 mGy [...] SCREENING LDCT. Other Significant Findings: Reading Location: [id number] CC: RESP THERAPISTDelphine De La Rosa; Dr. Jocelin Saunders DO Rivet Tosser: Signed Normal [facility] 12 Lead EKGon 05-20-2025 12 Lead EKG [facility] Cardiovascular Services [address] [place] [address] 12 Lead EKG 05/20/25 1213 MR#: [id number] Acct: [id number] Name: FREDERIC OVALLES Rep #: [id number] : 1960 64 From: Hector Hsu MD Attending Dr: Dr. Jhonatan Dunn MD Status: REG CLI Ordering Dr: Jhonatan Dunn MD Date: 05/20/25 Location: [facility] Sex: M C Admitted: Test Reason : PREOP Blood Pressure : */* mmHG Vent. Rate : 67 BPM Atrial Rate : 67 BPM P-R Int : 160 ms QRS Dur : 96 ms QT Int : 384 ms P-R-T Axes : -5 1 -4 degrees QTcB Int : 405 ms Normal sinus rhythm Normal ECG Confirmed by HECTOR HSU MD ([id number]), senior technical editor RULA VAZQUEZ ([id number]) on 05/21/2025 9:58:45 AM Referred By: Jhonatan Dunn Confirmed By: HECTOR HSU MD 05/21/25 0958 Date Hector Hsu MD CC: Dr. Jocelin Saunders DO; Dr. Jhonatan Dunn MD Signed Normal [facility] Basic Metabolic Profile (BMP )on 05-20-2025 BUN/CRE 13.6 RATIO Normal 10-20 [facility] Comment on above: Performed By: #### L 100.0100, L500.4050, L3410.9999 #### [facility] [address] [place], [address] Calcium [Mass/Vol] 9.1 mg/dL Normal 7.6-11.0 [facility] Comment on above: Performed By: #### L 100.0100, L500.4050, L3410.9999 #### [facility] [address] [place], [address] Chloride [Moles/Vol] 102 mmol/L Normal 98-108 [facility] Comment on above: Performed By: #### L 100.0100, L500.4050, L3410.9999 #### [facility] [address] [place], [address] CO2 [Moles/Vol] 28.0 mmol/L Normal 21.0-32.0 [facility] Comment on above: Performed By: #### L 100.0100, L500.4050, L3410.9999 #### [facility] [address] [place], [address] Creatinine [Mass/Vol] 0.77 mg/dL Normal 0.70-1.20 [facility] Comment on above: Performed By: #### L 100.0100, L500.4050, L3410.9999 #### [facility] [address] [place], [address] GAP 10 Normal 5-15 [facility] Comment on above: Performed By: #### L 100.0100, L500.4050, L3410.9999 #### [facility] [address] [place], [address] GFR/1.73 sq M.predicted among non-blacks MDRD (S/P/Bld) [Vol rate/Area] 100 mL/min/{1.73_m2} Normal >60 [facility] Comment on above: Result Comment: mL/m in/1.73m2 CKD-EPI Creatinine Equation (2020) Performed By: #### L 100.0100, L500.4050, L3410.9999 #### [facility] [address] [place], [address] Glucose [Mass/Vol] 156 mg/dL High 70-99 [facility] Comment on above: Performed By: #### L 100.0100, L500.4050, L3410.9999 #### [facility] [address] [place], [address] Potassium [Moles/Vol] 4.1 mmol/L Normal 3.3-5.1 [facility] Comment on above: Performed By: #### L 100.0100, L500.4050, L3410.9999 #### [facility] [address] [place], [address] Sodium [Moles/Vol] 140 mmol/L Normal 133-145 [facility] Comment on above: Performed By: #### L 100.0100, L500.4050, L3410.9999 #### [facility] [address] [place], [address] Urea nitrogen [Mass/Vol] 11 mg/dL Normal 4-19 [facility] Comment on above: Performed By: #### L 100.0100, L500.4050, L3410.9999 #### [facility] [address] [place], [address] CBC-Complete Blood Cnt No Di ffon 05-20-2025 Erythrocyte distribution width (RBC) [Ratio] 13.2 % Normal 11.6-14.6 [facility] Comment on above: Performed By: #### L 100.0100, L500.4050, L3410.9999 #### [facility] [address] [place], [address] Hematocrit (Bld) [Volume fraction] 44.6 % Normal 40-54 [facility] Comment on above: Performed By: #### L 100.0100, L500.4050, L3410.9999 #### [facility] [address] [place], [address] Hemoglobin (Bld) [Mass/Vol] 14.9 g/dL Normal 13.0-16.5 [facility] Comment on above: Performed By: #### L 100.0100, L500.4050, L3410.9999 #### [facility] [address] [place], [address] MCH (RBC) [Entitic mass] 29.2 pg Normal 27.0-32.0 [facility] Comment on above: Performed By: #### L 100.0100, L500.4050, L3410.9999 #### [facility] [address] [place], [address] MCHC (RBC) [Mass/Vol] 33.4 g/dL Normal 32-36 [facility] Comment on above: Performed By: #### L 100.0100, L500.4050, L3410.9999 #### [facility] [address] [place], [address] MCV (RBC) [Entitic vol] 87.5 fL Normal 80-94 [facility] Comment on above: Performed By: #### L 100.0100, L500.4050, L3410.9999 #### [facility] [address] [place], [address] Platelet mean volume (Bld) [Entitic vol] 10.6 fL Normal 6.2-12.0 [facility] Comment on above: Performed By: #### L 100.0100, L500.4050, L3410.9999 #### [facility] [address] [place], [address] Platelets (Bld) [#/Vol] 231 10*3/uL Normal 150-450 [facility] Comment on above: Performed By: #### L 100.0100, L500.4050, L3410.9999 #### [facility] [address] [place], [address] RBC (Bld) [#/Vol] 5.10 10*6/uL Normal 4.6-6.2 [facility] Comment on above: Performed By: #### L 100.0100, L500.4050, L3410.9999 #### [facility] [address] [place], [address] RDW SD 42.4 fl Normal 35.1-43.9 [facility] Comment on above: Performed By: #### L 100.0100, L500.4050, L3410.9999 #### [facility] [address] [place], [address] WBC (Bld) [#/Vol] 6.7 10*3/uL Normal 4.4-11.0 [facility] Comment on above: Performed By: #### L 100.0100, L500.4050, L3410.9999 #### [facility] [address] [place], [address] Stress Reporton 05-11-2025 Stress Report [facility] Cardi[facility] [address] [place] [address] MR#: [id number] Acct: [id number] Name: FREDERIC OVALLES Alyx Rep #: [id number] : 1960 64 From: Hector Hsu MD [...] DO Date Dictated: 05/11/251014 Date Transcribed: 05/11/251014 Rivet Tosser: CO Signed Normal [facility] Oncology Visit Reporton 04-21 Oncology Visit Report [facility] [place] [address] OFFICE VISIT Date of Service: 05/06/25 1054 MR#: [id number] Acct: [id number] Name: FREDERIC OVALLES Rep #: [id number] : 1960 From: Sawyer Delgado MD Age/Sex: 64/M Location: [facility] Status: Signed HPI Subjective Date of [...] neoplasm. The flow cytometry analysis report from [employer] is reviewable in the patient???s EMR. BONE [...] and megakaryocytes. 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 RESULTS: BCR/ABL1 Normal Nuclei Positive Nuclei with Dual Fusion 3.33% 96.67% CYTOGENETICS REPORT FROM [facility] INTERPRETATION: Abnormal male karyotype was observed in twenty metaphases analyzed. 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 Bosutinib August 10, 2022-ongoing MMR (January 2023) [facility] Medical History Chronic myeloid leukemia Low back [...] Nicotine dependence Atherosclerosis of coronary artery of [place] heart without angina pectoris Obesity (BMI 30.0-34.9) [...] household members: (more content not included)... Normal [facility] L3410.9992on 04-29-2025 [facility]. COMMENT Normal . [facility] Comment on above: Order Comment: [id number] 1 BCR/ABL Result Comment: Test Ordered: [id number] BCR-ABL1, CML/ALL, PCR, Quant e13a2 (b2a2) transcript [...] Reference Range: . Technical Component performed at [facility] Professional Component performed by: Yaquelin Mckeon, PhD, [facility] Director, Molecular Oncology [facility] [id number], [address] [address] Background Comment LUU Reference Range: . This [...] developed and its performance characteristics determined by [facility]. It has not been cleared or approved [...] quantitation of BCR-ABL mRNA. Blood. 2010 25; 116(22):n533-638. Performed at: [facility] [address] [place], [place] [id number] Merchandise Planning Manager: Sherri Davey [facility], Phone: [phone] Performed at: - [facility] [address] [place], [place] [id number] Merchandise Planning Manager: Sherri Davey [facility], Phone: [phone] Performed at: [facility] [address] [id number] Merchandise Planning Manager: Michael Ragsdale PhD, Phone: [phone] Performed By: #### L 3410.9992 #### [facility] [address] [place] [address], [address] Bilirubin directOrdered By: Hector Hsu on 04-26-2025 Bilirubin.direct [Mass/Vol] 0.16 mg/dL 0.00-0.30 [facility] Bilirubin, totalOrdered By: Hector Hsu on 04-26-2025 Bilirubin [Mass/Vol] 0.39 mg/dL 0.00-1.30 [facility] Calculated very low density lipoprotein (VLDL) cholesterol measurementOrdered By: Hector Hsu on 04-26-2025 Calculated very low density lipoprotein (VLDL) cholesterol measurement 35 mg/dL 5-40 [facility] Hemoglobin A1con 04-26-2025 HbA1c (Bld) [Mass fraction] 6.3 % High <=5.6 [facility] Comment on above: Result Comment: Norm al < 5.7 % Prediabetic 5.7 - 6.4 % Diabetic >or= 6.5 % Please note range changes. Performed By: #### L 100.0100, L500.4050, L3410.9999 #### [facility] [address] [place], [address] Hemoglobin A1c percentageOrd ered By: Hector Hsu on 04-26-2025 HbA1c (Bld) [Mass fraction] 6.3 % High <5.7 [facility] Comment on above: Normal < 5.7 % Predi abetic 5.7 - 6.4 % Diabetic >or= 6.5 % Please note range changes. LDL calc ser/plasOrdered By: Hector Hsu on 04-26-2025 Cholesterol in LDL [Mass/Vol] 71 mg/dL [facility] Comment on above: Famyoykplw=640-837 m g/dL & Higher Tvsy=616 mg/dL or greaterFriedwald Equation for LDL-C Laboratory - Chemistry and C hemistry - challengeOrdered By: Hector Hsu on 04-26-2025 AST [Catalytic activity/Vol] 27 U/L <38 [facility] Lipid Profileon 04-26-2025 CHOL:HDL 3.46 Normal [facility] Comment on above: Performed By: #### L 100.0100, L500.4050, L3410.9999 #### [facility] [address] [place], [address] Cholesterol [Mass/Vol] 149 mg/dL Normal <=200 [facility] Comment on above: Result Comment: Chol esterol level, Desirable <200 mg/dL Borderline high cholesterol 200-239 mg/dL High cholesterol >=240 mg/dL Recommendations of the NCEP Adult Treatment Panel for the following risk-cutoff thresholds for the [place] population. Performed By: #### L 100.0100, L500.4050, L3410.9999 #### [facility] [address] [place], [address] Cholesterol in HDL [Mass/Vol] 43 mg/dL Normal [facility] Comment on above: Result Comment: Amanda onal Cholesterol Education Program (NCEP) guidelines: <40 mg/dL: Low HDL-cholesterol (major risk factor for CHD) >= 60 mg/dL: High HDL-cholesterol (negative risk factor for CHD) HDL-cholesterol is affected by a number of factors, e.g. smoking, exercise, hormones, sex and age. Performed By: #### L 100.0100, L500.4050, L3410.9999 #### [facility] [address] [place], [address] Cholesterol in LDL [Mass/Vol] 71 mg/dL Normal [facility] Comment on above: Result Comment: Bord meoxiu=063-882 mg/dL Higher Sgav=048 mg/dL or greater Friedwald Equation for LDL-C Performed By: #### L 100.0100, L500.4050, L3410.9999 #### [facility] [address] [place], [address] Cholesterol in VLDL [Mass/Vol] 35 mg/dL Normal 5-40 [facility] Comment on above: Performed By: #### L 100.0100, L500.4050, L3410.9999 #### [facility] [address] [place], [address] Triglyceride [Mass/Vol] 175 mg/dL Normal [facility] Comment on above: Result Comment: The drugs N-Acetylcysteine and Metamizole may falsely depress this assay. Normal range: <150 mg/dL Borderline High: 150-199 mg/dL High: 200-499 mg/dL Very High: >500 mg/dL Performed By: #### L 100.0100, L500.4050, L3410.9999 #### [facility] [address] [place], [address] Liver Profileon 04-26-2025 Albumin [Mass/Vol] 4.4 g/dL Normal 3.4-4.8 [facility] Comment on above: Performed By: #### L 100.0100, L500.4050, L3410.9999 #### [facility] [address] [place], [address] ALK PHOS 75 U/L Normal 40-129 [facility] Comment on above: Performed By: #### L 100.0100, L500.4050, L3410.9999 #### [facility] [address] [place], [address] ALT [Catalytic activity/Vol] 34 U/L Normal <=46 [facility] Comment on above: Performed By: #### L 100.0100, L500.4050, L3410.9999 #### [facility] [address] [place], [address] AST [Catalytic activity/Vol] 27 U/L Normal <=37 [facility] Comment on above: Performed By: #### L 100.0100, L500.4050, L3410.9999 #### [facility] [address] [place], [address] Bilirubin [Mass/Vol] 0.39 mg/dL Normal 0.00-1.30 [facility] Comment on above: Performed By: #### L 100.0100, L500.4050, L3410.9999 #### [facility] [address] [place], [address] Bilirubin.direct [Mass/Vol] 0.16 mg/dL Normal 0.00-0.30 [facility] Comment on above: Performed By: #### L 100.0100, L500.4050, L3410.9999 #### [facility] [address] [place], [place], [address] Globulin (S) [Mass/Vol] 2.9 g/dL Normal 2.2-4.2 [facility] Comment on above: Performed By: #### L 100.0100, L500.4050, L3410.9999 #### [facility] [address] [place], [address] T PROT 7.3 g/dL Normal 5.9-8.4 [facility] Comment on above: Performed By: #### L 100.0100, L500.4050, L3410.9999 #### [facility] [address] [place], [address] Screening total cholesterol/ high density lipoprotein (HDL) cholesterol ratioOrdered By: Hector Hsu on 04-26-2025 Cholesterol.total/Rica sterol in HDL [Mass ratio] 3.46 {ratio} [facility] Serum globulin measurementOr dered By: Hector Hsu on 04-26-2025 Globulin (S) [Mass/Vol] 2.9 g/dL 2.2-4.2 [facility] Serum or plasma alanine arciniega otransferase (ALT) measurementOrdered By: Hector Hsu on 04-26-2025 ALT [Catalytic activity/Vol] 34 U/L <47 [facility] Serum or plasma albumin mary urement (mass/volume)Ordered By: Hector Hsu on 04-26-2025 Albumin [Mass/Vol] 4.4 g/dL 3.4-4.8 [facility] Serum or plasma alkaline josé miguel sphatase measurementOrdered By: Hector Shadi on 04-26-2025 ALP [Catalytic activity/Vol] 75 U/L 40-129 [facility] Serum or plasma cholesterol in HDL measurement (mass/volume)Ordered By: Hector Hsu on 04-26-2025 Cholesterol in HDL [Mass/Vol] 43 mg/dL >40 [facility] Comment on above: National Cholesterol Education Program (NCEP) guidelines:<40 mg/dL: Low HDL-cholesterol (major risk factor for CHD)>= 60 mg/dL: High HDL-cholesterol (negative risk factor for CHD)HDL-cholesterol is affected by a number of factors, e.g. smoking, exercise, hormones, sex and age. Serum or plasma cholesterol measurement (mass/volume)Ordered By: Hector Hsu on 04-26-2025 Cholesterol [Mass/Vol] 149 mg/dL <201 [facility] Comment on above: Cholesterol level, D esirable <200 mg/dLBorderline high cholesterol 200-239 mg/dLHigh cholesterol >=240 mg/dLRecommendations of the NCEP Adult Treatment Panel for the following risk-cutoff thresholds for the [place] population. T4 Total, Thyroxinon 025 T4 [Mass/Vol] 6.6 ug/dL Normal 4.5-12.1 [facility] Comment on above: Performed By: #### L 100.0100, L500.4050, L3410.9999 #### [facility] [address], [place], [id number] TSH DL <= 0.005 mIU/L QnOrde red By: Hector Hsu on 04-26-2025 TSH Qn 3.320 uIU/mL 0.300-4.20 0 [facility] Thyroid Stim Hormone (TSH)on 04-26-2025 TSH 3.320 uIU/mL Normal 0.300-4.20 0 [facility] Comment on above: Performed By: #### L 100.0100, L500.4050, L3410.9999 #### [facility] [address], [place], [id number] ThyroxineOrdered By: Hector parks on 04-26-2025 T4 [Mass/Vol] 6.6 ug/dL 4.5-12.1 [facility] Total proteinOrdered By: Wendy Hsu on 04-26-2025 Protein [Mass/Vol] 7.3 g/dL 5.9-8.4 [facility] Triglycerides measurementOrd ered By: Hector Hsu on 04-26-2025 Triglyceride [Mass/Vol] 175 mg/dL <199 [facility] Comment on above: The drugs N-Acetylcy steine and Metamizole may falsely depress this assay. Normal range: <150 mg/dLBorderline High: 150-199 mg/dLHigh: 200-499 mg/dLVery High: >500 mg/dL Absolute lymphocyte countOrd ered By: Savi Rodriguez on 04-22-2025 Lymphocytes Auto (Unsp spec) [#/Vol] 1.19 10*3/uL 0.83-4.51 [facility] Absolute neutrophil countOrd ered By: Savi Rodriguez on 04-22-2025 Neutrophils (Bld) [#/Vol] 4.8 10*3/uL 2.0-7.7 [facility] Anion gap in Serum or Plasma Ordered By: Savi Rodriguez on 04-22-2025 Anion gap [Moles/Vol] 12 mmol/L 5- [facility] Automated lymphocyte count a s percentage of total leukocytesOrdered By: Savi Rodriguez on 04-22-2025 Lymphocytes/100 WBC Auto (Unsp spec) 16.7 % Low - [facility] BUN/creatinine ratioOrdered By: Savi Rodriguez on 04-22-2025 Urea nitrogen/Creatinine [Mass ratio] 15.8 mg/mg 10 [facility] Basophil percentageOrdered B y: Savi Rodriguez on 04-22-2025 Basophils/100 WBC (Bld) 1.0 % 0-1 [facility] CBC W/Diff, Automatedon Absolute Lymph 1.19 X10 3/uL Normal 0.83-4.51 [facility] Comment on above: Performed By: #### L 100.0100, L500.4050, L3410.9999 #### [facility] [address] [place], [place], [id number] Absolute Neut 4.8 X10 3/uL Normal 2.0-7.7 [facility] Comment on above: Performed By: #### L 100.0100, L500.4050, L3410.9999 #### [facility] [address] [place], [address] Basophils/100 WBC (Bld) 1.0 % Normal 0-1 [facility] Comment on above: Performed By: #### L 100.0100, L500.4050, L3410.9999 #### [facility] [address] [place], [address] Eosinophils/100 WBC (Bld) 4.9 % Normal 0-5 [facility] Comment on above: Performed By: #### L 100.0100, L500.4050, L3410.9999 #### [facility] [address] [place], [address] Erythrocyte distribution width (RBC) [Ratio] 13.1 % Normal 11.6-14.6 [facility] Comment on above: Performed By: #### L 100.0100, L500.4050, L3410.9999 #### [facility] [address] [place], [address] Hematocrit (Bld) [Volume fraction] 44.8 % Normal 40-54 [facility] Comment on above: Performed By: #### L 100.0100, L500.4050, L3410.9999 #### [facility] [address] [place], [address] Hemoglobin (Bld) [Mass/Vol] 15.4 g/dL Normal 13.0-16.5 [facility] Comment on above: Performed By: #### L 100.0100, L500.4050, L3410.9999 #### [facility] [address] [place], [address] IG% 0.300 Normal 0.0-0.9 [facility] Comment on above: Result Comment: IG% - Immature Granulocytes (promyelocytes, myelocytes and metamyelocytes) > 1% indicates that a LEFT SHIFT is Present. Performed By: #### L 100.0100, L500.4050, L3410.9999 #### [facility] [address] [place], [address] Lymphocytes/100 WBC (Bld) 16.7 % Low 19-41 [facility] Comment on above: Performed By: #### L 100.0100, L500.4050, L3410.9999 #### [facility] [address] [place], [address] MCH (RBC) [Entitic mass] 29.6 pg Normal 27.0-32.0 [facility] Comment on above: Performed By: #### L 100.0100, L500.4050, L3410.9999 #### [facility] [address] [place], [address] MCHC (RBC) [Mass/Vol] 34.4 g/dL Normal 32-36 [facility] Comment on above: Performed By: #### L 100.0100, L500.4050, L3410.9999 #### [facility] [address] [place], [address] MCV (RBC) [Entitic vol] 86.2 fL Normal 80-94 [facility] Comment on above: Performed By: #### L 100.0100, L500.4050, L3410.9999 #### [facility] [address] [place], [address] Monocytes/100 WBC (Bld) 9.8 % Normal 0-10 [facility] Comment on above: Performed By: #### L 100.0100, L500.4050, L3410.9999 #### [facility] [address] [place], [address] Neutrophils/100 WBC (Bld) 67.3 % Normal 47-70 [facility] Comment on above: Performed By: #### L 100.0100, L500.4050, L3410.9999 #### [facility] [address] [place], [address] Nucleated RBC (Bld) [#/Vol] 0 10*3/uL Normal 0-5 [facility] Comment on above: Performed By: #### L 100.0100, L500.4050, L3410.9999 #### [facility] [address] [place], [address] Platelet mean volume (Bld) [Entitic vol] 11.0 fL Normal 6.2-12.0 [facility] Comment on above: Performed By: #### L 100.0100, L500.4050, L3410.9999 #### [facility] [address] [place], [address] Platelets (Bld) [#/Vol] 233 10*3/uL Normal 150-450 [facility] Comment on above: Performed By: #### L 100.0100, L500.4050, L3410.9999 #### [facility] [address] [place], [address] RBC (Bld) [#/Vol] 5.20 10*6/uL Normal 4.6-6.2 [facility] Comment on above: Performed By: #### L 100.0100, L500.4050, L3410.9999 #### [facility] [address] [place], [address] RDW SD 40.5 fl Normal 35.1-43.9 [facility] Comment on above: Performed By: #### L 100.0100, L500.4050, L3410.9999 #### [facility] [address] [place], [address] WBC (Bld) [#/Vol] 7.1 10*3/uL Normal 4.4-11.0 [facility] Comment on above: Performed By: #### L 100.0100, L500.4050, L3410.9999 #### [facility] [address] [place], [address] Carbon dioxide, total [Moles /volume] in Central venous bloodOrdered By: Savi Michael on 04-22-2025 CO2 [Moles/Vol] 23.2 mmol/L 21.0-32.0 [facility] Chloride assayOrdered By: Ty ra Michael on 04-22-2025 Chloride [Moles/Vol] 103 mmol/L 98-108 [facility] Comprehensive Metabolic Prof ilon 04-22-2025 Albumin [Mass/Vol] 4.6 g/dL Normal 3.4-4.8 [facility] Comment on above: Performed By: #### L 100.0100, L500.4050, L3410.9999 #### [facility] [address] [place], [address] Albumin/Globulin [Mass ratio] 1.6 {ratio} Normal 0.9-2.4 [facility] Comment on above: Performed By: #### L 100.0100, L500.4050, L3410.9999 #### [facility] [address] [place], [address] ALK PHOS 74 U/L Normal 40-129 [facility] Comment on above: Performed By: #### L 100.0100, L500.4050, L3410.9999 #### [facility] [address] [place], [address] ALT [Catalytic activity/Vol] 44 U/L Normal <=46 [facility] Comment on above: Performed By: #### L 100.0100, L500.4050, L3410.9999 #### [facility] [address] [place], [address] AST [Catalytic activity/Vol] 35 U/L Normal <=37 [facility] Comment on above: Performed By: #### L 100.0100, L500.4050, L3410.9999 #### [facility] [address] [place], [address] Bilirubin [Mass/Vol] 0.31 mg/dL Normal 0.00-1.30 [facility] Comment on above: Performed By: #### L 100.0100, L500.4050, L3410.9999 #### [facility] [address] [place], [address] BUN/CRE 15.8 RATIO Normal 10-20 [facility] Comment on above: Performed By: #### L 100.0100, L500.4050, L3410.9999 #### [facility] [address] [place], [address] Calcium [Mass/Vol] 9.1 mg/dL Normal 7.6-11.0 [facility] Comment on above: Performed By: #### L 100.0100, L500.4050, L3410.9999 #### [facility] [address] [place], [address] Chloride [Moles/Vol] 103 mmol/L Normal 98-108 [facility] Comment on above: Performed By: #### L 100.0100, L500.4050, L3410.9999 #### [facility] [address] [place], [address] CO2 [Moles/Vol] 23.2 mmol/L Normal 21.0-32.0 [facility] Comment on above: Performed By: #### L 100.0100, L500.4050, L3410.9999 #### [facility] [address] [place], [address] Creatinine [Mass/Vol] 0.85 mg/dL Normal 0.70-1.20 [facility] Comment on above: Performed By: #### L 100.0100, L500.4050, L3410.9999 #### [facility] [address] [place], [address] ECRCL 112.64 ml/min Normal 50-250 [facility] Comment on above: Performed By: #### L 100.0100, L500.4050, L3410.9999 #### [facility] [address] [place], [address] GAP 12 Normal 5-15 [facility] Comment on above: Performed By: #### L 100.0100, L500.4050, L3410.9999 #### [facility] [address] [place], [address] GFR/1.73 sq M.predicted among non-blacks MDRD (S/P/Bld) [Vol rate/Area] 97 mL/min/{1.73_m2} Normal >60 [facility] Comment on above: Result Comment: mL/m in/1.73m2 CKD-EPI Creatinine Equation (2020) Performed By: #### L 100.0100, L500.4050, L3410.9999 #### [facility] [address] [place], [address] Globulin (S) [Mass/Vol] 2.9 g/dL Normal 2.2-4.2 [facility] Comment on above: Performed By: #### L 100.0100, L500.4050, L3410.9999 #### [facility] [address] [place], [address] Glucose [Mass/Vol] 135 mg/dL High 70-99 [facility] Comment on above: Performed By: #### L 100.0100, L500.4050, L3410.9999 #### [facility] [address] [place], [address] Potassium [Moles/Vol] 4.1 mmol/L Normal 3.3-5.1 [facility] Comment on above: Performed By: #### L 100.0100, L500.4050, L3410.9999 #### [facility] [address] [place], [address] Sodium [Moles/Vol] 138 mmol/L Normal 133-145 [facility] Comment on above: Performed By: #### L 100.0100, L500.4050, L3410.9999 #### [facility] [address] [place], [address] T PROT 7.4 g/dL Normal 5.9-8.4 [facility] Comment on above: Performed By: #### L 100.0100, L500.4050, L3410.9999 #### [facility] [address] [place], [address] Urea nitrogen [Mass/Vol] 13 mg/dL Normal 4-19 [facility] Comment on above: Performed By: #### L 100.0100, L500.4050, L3410.9999 #### [facility] [address] [place], [address] Eosinophil percentageOrdered By: Savi Rodriguez on 04-22-2025 Eosinophils/100 WBC (Bld) 4.9 % 0-5 [facility] Erythrocyte distribution wid th ratioOrdered By: Savi Rodriguez on 04-22-2025 Erythrocyte distribution width (RBC) [Ratio] 13.1 % 11.6-14.6 [facility] Erythrocyte distribution wid th standard deviationOrdered By: Savi Rodriguez on 04-22-2025 Erythrocyte distribution width (RBC) [Ratio] 40.5 fl 35.1-43.9 [facility] Glomerular filtration rate ( GFR) estimation/1.73 sq m using serum, plasma, or whole bOrdered By: Savi Rodriguez on 04-22-2025 GFR/1.73 sq M.predicted among non-blacks MDRD (S/P/Bld) [Vol rate/Area] 97 mL/min/{1.73_m2} >60 [facility] Comment on above: mL/min/1.73m2 CKD-EP I Creatinine Equation (2020) Hematocrit Auto (Bld) [Volum e fraction]Ordered By: Savi Rodriguez on 04-22-2025 Hematocrit (Bld) [Volume fraction] 44.8 % 40-54 [facility] Hemoglobin measurementOrdere d By: Savi Rodriguez on 04-22-2025 Hemoglobin (Bld) [Mass/Vol] 15.4 g/dL 13.0-16.5 [facility] Immature granulocytes/100 WB C Auto (Bld)Ordered By: Savi Rodriguez on 04-22-2025 Immature granulocytes/100 WBC (Bld) 0.300 % 0.0-0.9 [facility] Comment on above: IG% - Immature Granu locytes (promyelocytes, myelocytes and metamyelocytes) > 1% indicates that a LEFT SHIFT is Present. MCV (mean corpuscular volume ) determinationOrdered By: Savi Rodriguez on 04-22-2025 MCV (RBC) [Entitic vol] 86.2 fL 80-94 [facility] Mean corpuscular hemoglobin (MCH) determinationOrdered By: Savi Rodriguez on 04-22-2025 MCH (RBC) [Entitic mass] 29.6 pg 27.0-32.0 [facility] Mean corpuscular hemoglobin concentration (MCHC) determinationOrdered By: Savi Rodriguez on 04-22-2025 MCHC (RBC) [Mass/Vol] 34.4 g/dL 32-36 [facility] Mean platelet volume determi nationOrdered By: Savi Rodriguez on 04-22-2025 Platelet mean volume (Bld) [Entitic vol] 11.0 fL 6.2-12.0 [facility] Monocyte percentageOrdered B y: Savi Rodriguez on 04-22-2025 Monocytes/100 WBC (Bld) 9.8 % 0-10 [facility] Neutrophil percentageOrdered By: Savi Rodriguez on 04-22-2025 Neutrophils/100 WBC (Bld) 67.3 % 47-70 [facility] Nucleated red blood cell per centageOrdered By: Savi Rodriguez on 04-22-2025 Nucleated RBC/100 WBC (Bld) [Ratio] 0 % 0-5 [facility] Platelet countOrdered By: Derik Rodriguez on 04-22-2025 Platelets (Bld) [#/Vol] 233 10*3/uL 150-450 [facility] Potassium measurement (mass/ volume)Ordered By: Savi Rodriguez on 04-22-2025 Potassium (Unsp spec) [Mass/Vol] 4.1 mmol/L 3.3-5.1 [facility] RBC Auto (Bld) [#/Vol]Ordere d By: Savi Rodriguez on 04-22-2025 RBC (Bld) [#/Vol] 5.20 10*6/uL 4.6-6.2 [facility] Serum creatinine measurement (mass/volume)Ordered By: Savi Rodriguez on 04-22-2025 Creatinine [Mass/Vol] 0.85 mg/dL 0.70-1.20 [facility] Serum glucose measurement (m ass/volume)Ordered By: Savi Rodriguez on 04-22-2025 Glucose [Mass/Vol] 135 mg/dL High 70-99 [facility] Serum or plasma albumin/glob ulin mass ratioOrdered By: Savi Rodriguez on 04-22-2025 Albumin/Globulin [Mass ratio] 1.6 {ratio} 0.9-2.4 [facility] Serum or plasma calcium mary urement (mass/volume)Ordered By: Savi Rodriguez on 04-22-2025 Calcium [Mass/Vol] 9.1 mg/dL 7.6-11.0 [facility] Serum or plasma urea nitroge n measurement (mass/volume)Ordered By: Savi Rodriguez on 04-22-2025 Urea nitrogen [Mass/Vol] 13 mg/dL 4-19 [facility] Sodium levelOrdered By: Savi Rodriguez on 04-22-2025 Sodium [Moles/Vol] 138 mmol/L 133-145 [facility] White blood cell (WBC) count Ordered By: Savi Rodriguez on 04-22-2025 WBC (Bld) [#/Vol] 7.1 10*3/uL 4.4-11.0 [facility] Cardiology Visit Reporton Cardiology Visit Report [facility] [address] [place] [address] OFFICE VISIT Date of Service: 04/16/25 MR#: [id number] Acct: [id number] Name: FREDERIC OVALLES Rep #: [id number] : 1960 Provider: Dr. 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 Normal [facility] Oncology Visit Reporton 01-19 Oncology Visit Report [facility] [address] [place] [address] OFFICE VISIT Date of Service: 02/04/25 1143 MR#: [id number] Acct: [id number] Name: MARISAPATRICIAFREDERIC Alyx Rep #: [id number] : 1960 From: Savi Rodriguez NP RESP THERAPIST -C Age/Sex: 64/M Location: [facility] Status: Signed HPI Subjective Date of Service [...] neoplasm. The flow cytometry analysis report from [facility] is reviewable in the patient???s EMR. BONE [...] and megakaryocytes. 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 RESULTS: BCR/ABL1 Normal Nuclei Positive Nuclei with Dual Fusion 3.33% 96.67% CYTOGENETICS REPORT FROM [facility] INTERPRETATION: Abnormal male karyotype was observed in [...] as good, PO fluid intake as adequate. [facility] Medical History Chronic myeloid leukemia Low back [...] Nicotine dependence Atherosclerosis of coronary artery of [place] heart without angina pectoris Obesity (BMI 30.0-34.9) Hiatal hernia with GERD History of back problems Surgical History Status post laser lithotripsy of ureteral calculus History of bone marrow biopsy (04/13/20) H (more content not included)... Normal [facility] L3410.9992on 01-26-2025 [facility] Misc. COMMENT Normal . [facility] Comment on above: Order Comment: [id number] 1BCR/ABL - WB LAV - RF Result Comment: Test Ordered: [id number] BCR-ABL1, CML/ALL, PCR, Quant e13a2 (b2a2) transcript [...] Reference Range: . Technical Component performed at [facility] Professional Component performed by: Dayan Davila, PhD, [facility] Director, Molecular Oncology [facility] LCYUD1, [address] [address] Background Comment Reference Range: . This assay [...] developed and its performance characteristics determined by [facility]. It has not been cleared or [...] quantitation of BCR-ABL mRNA. Blood. 2010 25; 116(22):y104-447. Performed at: - [facility] [place] [address] [facility] [facility], [place], [place] [id number] Merchandise Planning Manager: Sherri Davey [facility], Phone: [phone] Performed at: - [facility] [place] [address] [facility] [place], [facility], [place] [id number] Merchandise Planning Manager: Sherri Davey [facility], Phone: [phone] Performed at: [facility] [address] [id number] Merchandise Planning Manager: Michael Ragsdale PhD, Phone: [phone] Performed By: #### L 100.0100, L500.4050, L3410.9999 #### [facility] [address] [place], [place], [id number] Absolute lymphocyte countOrd ered By: [facility] Danny on 01-21-2025 Lymphocytes Auto (Unsp spec) [#/Vol] 0.88 10*3/uL 0.83-4.51 [facility] Absolute neutrophil countOrd ered By: [facility] Danny on 01-21-2025 Neutrophils (Bld) [#/Vol] 4.9 10*3/uL 2.0-7.7 [facility] Anion gap in Serum or Plasma Ordered [facility] on 01-21-2025 Anion gap [Moles/Vol] 11 mmol/L 5-15 [facility] Automated blood erythrocyte countOrdered By: [facility] on 01-21-2025 RBC (Bld) [#/Vol] 5.11 10*6/uL Normal 4.6-6.2 [facility] Comment on above: Performed By: #### L 3410.9992, L100.0100, L501.2300, L500.4050, L501.5200 #### [facility] [address] [place], [place], [id number] Automated blood hematocrit ( percentage)Ordered By: Sawyer Victormarcos on 01-21-2025 Hematocrit (Bld) [Volume fraction] 44.8 % Normal 40-54 [facility] Comment on above: Performed By: #### L 3410.9992, L100.0100, L501.2300, L500.4050, L501.5200 #### [facility] [address] [place], [address] Automated lymphocyte count a s percentage of total leukocytesOrdered By: Sawyer Danny on 01-21-2025 Lymphocytes/100 WBC Auto (Unsp spec) 12.9 % Low 19-41 [facility] BUN/creatinine ratioOrdered By: Sawyer Victormarcos on 01-21-2025 Urea nitrogen/Creatinine [Mass ratio] 14.9 mg/mg 10-20 [facility] Basophil percentageOrdered B y: Sawyer Vcitormarcos on 01-21-2025 Basophils/100 WBC (Bld) 0.9 % Normal 0-1 [facility] Comment on above: Performed By: #### L 3410.9992, L100.0100, L501.2300, L500.4050, L501.5200 #### [facility] [address] [place], [address] Bilirubin, totalOrdered By: Anthonytimmy Delgado on 01-21-2025 Bilirubin [Mass/Vol] 0.42 mg/dL Normal 0.00-1.30 [facility] Comment on above: Performed By: #### L 3410.9992, L100.0100, L501.2300, L500.4050, L501.5200 #### [facility] [address] [place], [address] CBC W/Diff, Automatedon Absolute Lymph 0.88 X10 3/uL Normal 0.83-4.51 [facility] Comment on above: Performed By: #### L 3410.9992, L100.0100, L501.2300, L500.4050, L501.5200 #### [facility] [address] [place], [address] Absolute Neut 4.9 X10 3/uL Normal 2.0-7.7 [facility] Comment on above: Performed By: #### L 3410.9992, L100.0100, L501.2300, L500.4050, L501.5200 #### [facility] [address] [place], [address] IG% 0.300 Normal 0.0-0.9 [facility] Comment on above: Result Comment: IG% - Immature Granulocytes (promyelocytes, myelocytes and metamyelocytes) > 1% indicates that a LEFT SHIFT is Present. Performed By: #### L 3410.9992, L100.0100, L501.2300, L500.4050, L501.5200 #### [facility] [address] [place], [address] Lymphocytes/100 WBC (Bld) 12.9 % Low 19-41 [facility] Comment on above: Performed By: #### L 3410.9992, L100.0100, L501.2300, L500.4050, L501.5200 #### [facility] [address] [place], [address] Nucleated RBC (Bld) [#/Vol] 0 10*3/uL Normal 0-5 [facility] Comment on above: Performed By: #### L 3410.9992, L100.0100, L501.2300, L500.4050, L501.5200 #### [facility] [address] [place], [address] RDW SD 43.6 fl Normal 35.1-43.9 [facility] Comment on above: Performed By: #### L 3410.9992, L100.0100, L501.2300, L500.4050, L501.5200 #### [facility] [address] [place], [address] Carbon dioxide, total [Moles /volume] in Central venous bloodOrdered By: Sawyer Delgado on 01-21-2025 CO2 [Moles/Vol] 23.0 mmol/L Normal 21.0-32.0 [facility] Comment on above: Performed By: #### L 3410.9992, L100.0100, L501.2300, L500.4050, L501.5200 #### [facility] [address] [place], [address] Chloride assayOrdered By: Christin Delgado on 01-21-2025 Chloride [Moles/Vol] 105 mmol/L Normal 98-108 [facility] Comment on above: Performed By: #### L 3410.9992, L100.0100, L501.2300, L500.4050, L501.5200 #### [facility] [address] [place], [address] Comprehensive Metabolic Prof ilon 01-21-2025 ALK PHOS 80 U/L Normal 40-129 [facility] Comment on above: Performed By: #### L 3410.9992, L100.0100, L501.2300, L500.4050, L501.5200 #### [facility] [address] [place], [address] BUN/CRE 14.9 RATIO Normal 10-20 [facility] Comment on above: Performed By: #### L 3410.9992, L100.0100, L501.2300, L500.4050, L501.5200 #### [facility] [address] [place], [address] ECRCL 120.48 ml/min Normal 50-250 [facility] Comment on above: Performed By: #### L 3410.9992, L100.0100, L501.2300, L500.4050, L501.5200 #### [facility] [address] [place], [address] GAP 11 Normal 5-15 [facility] Comment on above: Performed By: #### L 3410.9992, L100.0100, L501.2300, L500.4050, L501.5200 #### [facility] [address] [place], [address] Potassium [Moles/Vol] 4.3 mmol/L Normal 3.3-5.1 [facility] Comment on above: Performed By: #### L 3410.9992, L100.0100, L501.2300, L500.4050, L501.5200 #### [facility] [address] [place], [place], [id number] T PROT 7.6 g/dL Normal 5.9-8.4 [facility] Comment on above: Performed By: #### L 3410.9992, L100.0100, L501.2300, L500.4050, L501.5200 #### [facility] [address] [place], [address] Comprehensive Metabolic Prof ilOrdered By: Sawyer Delgado on 01-21-2025 AST [Catalytic activity/Vol] 30 U/L Normal <=37 [facility] Comment on above: Performed By: #### L 3410.9992, L100.0100, L501.2300, L500.4050, L501.5200 #### [facility] [address] [place], [address] Eosinophil percentageOrdered By: Sawyer Delgado on 01-21-2025 Eosinophils/100 WBC (Bld) 5.3 % High 0-5 [facility] Comment on above: Performed By: #### L 3410.9992, L100.0100, L501.2300, L500.4050, L501.5200 #### [facility] [address] [place], [address] Erythrocyte distribution wid th ratioOrdered By: Sawyer Delgado on 01-21-2025 Erythrocyte distribution width (RBC) [Ratio] 13.6 % Normal 11.6-14.6 [facility] Comment on above: Performed By: #### L 3410.9992, L100.0100, L501.2300, L500.4050, L501.5200 #### [facility] [address] [place], [address] Erythrocyte distribution wid th standard deviationOrdered By: Sawyer Delgado on 01-21-2025 Erythrocyte distribution width (RBC) [Ratio] 43.6 fl 35.1-43.9 [facility] Glomerular filtration rate ( GFR) estimation/1.73 sq m using serum, plasma, or whole bOrdered By: Swayer Delgado on 01-21-2025 GFR/1.73 sq M.predicted among non-blacks MDRD (S/P/Bld) [Vol rate/Area] 99 mL/min/{1.73_m2} Normal >60 [facility] Comment on above: mL/min/1.73m2 CKD-EP I Creatinine Equation (2020) Result Comment: mL/m in/1.73m2 CKD-EPI Creatinine Equation (2020) Performed By: #### L 3410.9992, L100.0100, L501.2300, L500.4050, L501.5200 #### [facility] [address] [place], [place], [id number] Hemoglobin measurementOrdere d By: Sawyer Delgado on 01-21-2025 Hemoglobin (Bld) [Mass/Vol] 15.2 g/dL Normal 13.0-16.5 [facility] Comment on above: Performed By: #### L 3410.9992, L100.0100, L501.2300, L500.4050, L501.5200 #### [facility] [address] [place], [address] Immature granulocytes/100 WB C Auto (Bld)Ordered By: Anthonytimmy Delgado on 01-21-2025 Immature granulocytes/100 WBC (Bld) 0.300 % 0.0-0.9 [facility] Comment on above: IG% - Immature Granu locytes (promyelocytes, myelocytes and metamyelocytes) > 1% indicates that a LEFT SHIFT is Present. MCV (mean corpuscular volume ) determinationOrdered By: Sawyer Delgado on 01-21-2025 MCV (RBC) [Entitic vol] 87.7 fL Normal 80-94 [facility] Comment on above: Performed By: #### L 3410.9992, L100.0100, L501.2300, L500.4050, L501.5200 #### [facility] [address] [place], [address] Magnesiumon 01-21-2025 Magnesium [Mass/Vol] 2.3 mg/dL High 1.5-2.2 [facility] Comment on above: Performed By: #### L 100.0100, L500.4050, L3410.9999 #### [facility] [address] [place], [address] Magnesium measurement (mass/ volume)Ordered By: Sawyer Delgado on 01-21-2025 Magnesium (Unsp spec) [Mass/Vol] 2.3 mg/dL High 1.5-2.2 [facility] Mean corpuscular hemoglobin (MCH) determinationOrdered By: Sawyer Delgado on 01-21-2025 MCH (RBC) [Entitic mass] 29.7 pg Normal 27.0-32.0 [facility] Comment on above: Performed By: #### L 3410.9992, L100.0100, L501.2300, L500.4050, L501.5200 #### [facility] [address] [place], [address] Mean corpuscular hemoglobin concentration (MCHC) determinationOrdered By: Sawyer Delgado on 01-21-2025 MCHC (RBC) [Mass/Vol] 33.9 g/dL Normal 32-36 [facility] Comment on above: Performed By: #### L 3410.9992, L100.0100, L501.2300, L500.4050, L501.5200 #### [facility] [address] [place], [place], [phone] (444) Mean platelet volume determi nationOrdered By: Sawyer Delgado on 01-21-2025 Platelet mean volume (Bld) [Entitic vol] 11.1 fL Normal 6.2-12.0 [facility] Comment on above: Performed By: #### L 3410.9992, L100.0100, L501.2300, L500.4050, L501.5200 #### [facility] [address] [place], [place], [phone] ([phone] Monocyte percentageOrdered B y: Sawyer Delgado on 01-21-2025 Monocytes/100 WBC (Bld) 8.2 % Normal 0-10 [facility] Comment on above: Performed By: #### L 3410.9992, L100.0100, L501.2300, L500.4050, L501.5200 #### [facility] [address] [place], [place], [phone] ([address]) Neutrophil percentageOrdered By: Sawyer Delgado on 01-21-2025 Neutrophils/100 WBC (Bld) 72.4 % High 47-70 [facility] Comment on above: Performed By: #### L 3410.9992, L100.0100, L501.2300, L500.4050, L501.5200 #### [facility] [address] [place], [place], [phone] ([phone] Nucleated red blood cell per centageOrdered By: Sawyer Delgado on 01-21-2025 Nucleated RBC/100 WBC (Bld) [Ratio] 0 % 0-5 [facility] Phosphoruson 01-21-2025 Phosphate [Mass/Vol] 2.6 mg/dL Low 2.7-4.5 [facility] Comment on above: Performed By: #### L 100.0100, L500.4050, L3410.9999 #### [facility] [address] [place], [address] Platelet countOrdered By: Christin Delgado on 01-21-2025 Platelets (Bld) [#/Vol] 206 10*3/uL Normal 150-450 [facility] Comment on above: Performed By: #### L 3410.9992, L100.0100, L501.2300, L500.4050, L501.5200 #### [facility] [address] [place], [address] Potassium measurement (mass/ volume)Ordered By: Sawyer Delgado on 01-21-2025 Potassium (Unsp spec) [Mass/Vol] 4.3 mmol/L 3.3-5.1 [facility] Serum creatinine measurement (mass/volume)Ordered By: Sawyer Delgado on 01-21-2025 Creatinine [Mass/Vol] 0.79 mg/dL Normal 0.70-1.20 [facility] Comment on above: Performed By: #### L 3410.9992, L100.0100, L501.2300, L500.4050, L501.5200 #### [facility] [address] [place], [address] Serum globulin measurementOr dered By: Sawyer Delgado on 01-21-2025 Globulin (S) [Mass/Vol] 3.1 g/dL Normal 2.2-4.2 [facility] Comment on above: Performed By: #### L 3410.9992, L100.0100, L501.2300, L500.4050, L501.5200 #### [facility] [address] [place], [address] Serum glucose measurement (m ass/volume)Ordered By: Sawyer Delgado on 01-21-2025 Glucose [Mass/Vol] 132 mg/dL High 70-99 [facility] Comment on above: Performed By: #### L 3410.9992, L100.0100, L501.2300, L500.4050, L501.5200 #### [facility] [address] [place], [place], [phone] Serum or plasma alanine arciniega otransferase (ALT) measurementOrdered By: Sawyer Delgado on 01-21-2025 ALT [Catalytic activity/Vol] 40 U/L Normal <=46 [facility] Comment on above: Performed By: #### L 3410.9992, L100.0100, L501.2300, L500.4050, L501.5200 #### [facility] [address] [place], [place], [phone] Serum or plasma albumin mary urement (mass/volume)Ordered By: Sawyer Delgado on 01-21-2025 Albumin [Mass/Vol] 4.5 g/dL Normal 3.4-4.8 [facility] Comment on above: Performed By: #### L 3410.9992, L100.0100, L501.2300, L500.4050, L501.5200 #### [facility] [address] [place], [place], [id number] Serum or plasma albumin/glob ulin mass ratioOrdered By: Sawyer Delgado on 01-21-2025 Albumin/Globulin [Mass ratio] 1.5 {ratio} Normal 0.9-2.4 [facility] Comment on above: Performed By: #### L 3410.9992, L100.0100, L501.2300, L500.4050, L501.5200 #### [facility] [address] [place], [address] Serum or plasma alkaline josé miguel sphatase measurementOrdered By: Sawyer Delgado on 01-21-2025 ALP [Catalytic activity/Vol] 80 U/L 40-129 [facility] Serum or plasma calcium mary urement (mass/volume)Ordered By: Sawyer Delgado on 01-21-2025 Calcium [Mass/Vol] 9.2 mg/dL Normal 7.6-11.0 [facility] Comment on above: Performed By: #### L 3410.9992, L100.0100, L501.2300, L500.4050, L501.5200 #### [facility] [address] [facility] [place], [place], [id number] Serum or plasma urea nitroge n measurement (mass/volume)Ordered By: Sawyer Delgado on 01-21-2025 Urea nitrogen [Mass/Vol] 12 mg/dL Normal 4-19 [facility] Comment on above: Performed By: #### L 3410.9992, L100.0100, L501.2300, L500.4050, L501.5200 #### [facility] [address] [place], [place], [id number] Sodium levelOrdered By: Anthony Delgado on 01-21-2025 Sodium [Moles/Vol] 139 mmol/L Normal 133-145 [facility] Comment on above: Performed By: #### L 3410.9992, L100.0100, L501.2300, L500.4050, L501.5200 #### [facility] [address] [place], [place], [address] Total proteinOrdered By: Glen Delgado on 01-21-2025 Protein [Mass/Vol] 7.6 g/dL 5.9-8.4 [facility] White blood cell (WBC) count Ordered By: Sawyer Delgado on 01-21-2025 WBC (Bld) [#/Vol] 6.8 10*3/uL Normal 4.4-11.0 [facility] Comment on above: Performed By: #### L 3410.9992, L100.0100, L501.2300, L500.4050, L501.5200 #### [facility] [address] [place], [address] Pulmonary Visit Reporton Pulmonary Visit Report [facility] [place] 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 Normal [facility] Oncology Visit Reporton 10-20 Oncology Visit Report [facility] [address] [place] [address] OFFICE VISIT Date of Service: 11/05/24 1134 MR#: [id number] Acct: [id number] Name: FREDERIC OVALLES Rep #: [id number] : 1960 From: Sawyer Delgado MD Age/Sex: 64/M Location: [facility] [place] Status: Signed HPI Subjective Date of Service [...] neoplasm. The flow cytometry analysis report from [facility] is reviewable in the patient???s EMR. BONE [...] and megakaryocytes. 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 RESULTS: BCR/ABL1 Normal Nuclei Positive Nuclei with Dual Fusion 3.33% 96.67% CYTOGENETICS REPORT FROM [facility] INTERPRETATION: Abnormal male karyotype was observed in twenty metaphases analyzed. 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 Bosutinib August 10, 2022-ongoing MMR (January 2023) Interval History Painful kidney stone December 2023, recovered [facility] Medical History Chronic myeloid leukemia Low back [...] Nicotine dependence Atherosclerosis of coronary artery of [place] heart without angina pectoris Obesity (BMI 30.0-34.9) [...] History (Re (more content not included)... Normal [facility] Misc.on 10-27-2024 [facility]isc. COMMENT Normal . [facility] Comment on above: Order Comment: [id number] 1 BCR NA HEP WB RTEMP Result Comment: Test Ordered: [id number] BCR-ABL1, CML/ALL, PCR, Quant e13a2 (b2a2) transcript [...] Reference Range: . Technical Component performed at [facility] Professional Component performed by: Yaquelin Mckeon, PhD, [facility] Director, Molecular Oncology [facility] [id number], [address] [facility] [address] Background Comment [facility] Reference Range: . This [...] developed and its performance characteristics determined by [facility]. It has not been cleared or approved [...] quantitation of BCR-ABL mRNA. Blood. 2010 25; 116(22):q059-466. Performed at: [facility] - [facility] [address] [facility] [place], [place] [id number] Merchandise Planning Manager: Sherri Davey [facility], Phone: [phone] Performed at: - [facility] [address] [facility], [place] [id number] Merchandise Planning Manager: Sherri Davey [facility], Phone: [phone] Performed at: - [facility] [address] [id number] Merchandise Planning Manager: Michael Ragsdale PhD, Phone: [phone] Performed By: #### L 3410.9998, L100.0100, L504.2610, L500.4050 #### [facility] [address] [place], [address] Absolute lymphocyte countOrd ered By: Sawyer Delgado on 10-22-2024 Lymphocytes Auto (Unsp spec) [#/Vol] 1.30 10*3/uL 0.83-4.51 [facility] Absolute neutrophil countOrd ered By: Sawyer Delgado on 10-22-2024 Neutrophils (Bld) [#/Vol] 5.1 10*3/uL 2.0-7.7 [facility] Anion gap in Serum or Plasma Ordered By: Sawyer Delgado on 10-22-2024 Anion gap [Moles/Vol] 11 mmol/L 5-15 [facility] Automated blood erythrocyte countOrdered By: Sawyer Delgado on 10-22-2024 RBC (Bld) [#/Vol] 5.16 10*6/uL Normal 4.6-6.2 [facility] Comment on above: Performed By: #### L 3410.9998, L100.0100, L504.2610, L500.4050 #### [facility] [address] [place], [place], [id number] Automated blood hematocrit ( percentage)Ordered By: Sawyer Delgado on 10-22-2024 Hematocrit (Bld) [Volume fraction] 44.9 % Normal 40-54 [facility] Comment on above: Performed By: #### L 3410.9998, L100.0100, L504.2610, L500.4050 #### [facility] [address] [place], [address] Automated lymphocyte count a s percentage of total leukocytesOrdered By: Sawyer Delgado on 10-22-2024 Lymphocytes/100 WBC Auto (Unsp spec) 17.3 % Low 19-41 [facility] BUN/creatinine ratioOrdered By: [facility] Hospital[facility] Del[facility] on 10-22-2024 Urea nitrogen/Creatinine [Mass ratio] 15.1 mg/mg 10-20 [facility] Basophil percentageOrdered B y: Sawyer Delgado on 10-22-2024 Basophils/100 WBC (Bld) 1.1 % High 0-1 [facility] Comment on above: Performed By: #### L 3410.9998, L100.0100, L504.2610, L500.4050 #### [facility] [address] [place], [address] Bilirubin, totalOrdered By: Sawyer Delgado on 10-22-2024 Bilirubin [Mass/Vol] 0.33 mg/dL Normal 0.00-1.30 [facility] Comment on above: Performed By: #### L 3410.9998, L100.0100, L504.2610, L500.4050 #### [facility] [address] [place], [address] CBC W/Diff, Automatedon 04- Absolute Lymph 1.30 X10 3/uL Normal 0.83-4.51 [facility] Comment on above: Performed By: #### L 3410.9998, L100.0100, L504.2610, L500.4050 #### [facility] [address] [place], [address] Absolute Neut 5.1 X10 3/uL Normal 2.0-7.7 [facility] Comment on above: Performed By: #### L 3410.9998, L100.0100, L504.2610, L500.4050 #### [facility] [address] [place], [address] IG% 0.300 Normal 0.0-0.9 [facility] Comment on above: Result Comment: IG% - Immature Granulocytes (promyelocytes, myelocytes and metamyelocytes) > 1% indicates that a LEFT SHIFT is Present. Performed By: #### L 3410.9998, L100.0100, L504.2610, L500.4050 #### [facility] [address] [place], [address] Lymphocytes/100 WBC (Bld) 17.3 % Low 19-41 [facility] Comment on above: Performed By: #### L 3410.9998, L100.0100, L504.2610, L500.4050 #### [facility] [address] [place], [address] Nucleated RBC (Bld) [#/Vol] 0 10*3/uL Normal 0-5 [facility] Comment on above: Performed By: #### L 3410.9998, L100.0100, L504.2610, L500.4050 #### [facility] [address] [place], [address] RDW SD 42.6 fl Normal 35.1-43.9 [facility] Comment on above: Performed By: #### L 3410.9998, L100.0100, L504.2610, L500.4050 #### [facility] [address] [place], [address] Carbon dioxide, total [Moles /volume] in Central venous bloodOrdered By: Sawyer Delgado on 10-22-2024 CO2 [Moles/Vol] 24.1 mmol/L Normal 21.0-32.0 [facility] Comment on above: Performed By: #### L 3410.9998, L100.0100, L504.2610, L500.4050 #### [facility] [address] [place], [address] Chloride assayOrdered By: Christin Delgado on 10-22-2024 Chloride [Moles/Vol] 102 mmol/L Normal 98-108 [facility] Comment on above: Performed By: #### L 3410.9998, L100.0100, L504.2610, L500.4050 #### [facility] [address] [place], [address] Comprehensive Metabolic Prof ilon 10-22-2024 ALK PHOS 75 U/L Normal 40-129 [facility] Comment on above: Performed By: #### L 3410.9998, L100.0100, L504.2610, L500.4050 #### [facility] [address] [place], [address] BUN/CRE 15.1 RATIO Normal 10-20 [facility] Comment on above: Performed By: #### L 3410.9998, L100.0100, L504.2610, L500.4050 #### [facility] [address] [place], [address] ECRCL 102.76 ml/min Normal 50-250 [facility] Comment on above: Performed By: #### L 3410.9998, L100.0100, L504.2610, L500.4050 #### [facility] [address] [place], [address] GAP 11 Normal 5-15 [facility] Comment on above: Performed By: #### L 3410.9998, L100.0100, L504.2610, L500.4050 #### [facility] [address] [place], [address] Potassium [Moles/Vol] 4.4 mmol/L Normal 3.3-5.1 [facility] Comment on above: Performed By: #### L 3410.9998, L100.0100, L504.2610, L500.4050 #### [facility] [address] [place], [address] T PROT 7.5 g/dL Normal 5.9-8.4 [facility] Comment on above: Performed By: #### L 3410.9998, L100.0100, L504.2610, L500.4050 #### [facility] [address] [place], [address] Comprehensive Metabolic Prof ilOrdered By: Sawyer Delgado on 10-22-2024 AST [Catalytic activity/Vol] 26 U/L Normal <=37 [facility] Comment on above: Performed By: #### L 3410.9998, L100.0100, L504.2610, L500.4050 #### [facility] [address] [place], [address] Eosinophil percentageOrdered By: Sawyer Delgado on 10-22-2024 Eosinophils/100 WBC (Bld) 4.6 % Normal 0-5 [facility] Comment on above: Performed By: #### L 3410.9998, L100.0100, L504.2610, L500.4050 #### [facility] [address] [place], [address] Erythrocyte distribution wid th ratioOrdered By: Sawyer Delgado on 10-22-2024 Erythrocyte distribution width (RBC) [Ratio] 13.4 % Normal 11.6-14.6 [facility] Comment on above: Performed By: #### L 3410.9998, L100.0100, L504.2610, L500.4050 #### [facility] [address] [place], [address] Erythrocyte distribution wid th standard deviationOrdered By: Sawyer Delgado on 10-22-2024 Erythrocyte distribution width (RBC) [Ratio] 42.6 fl 35.1-43.9 [facility] Glomerular filtration rate ( GFR) estimation/1.73 sq m using serum, plasma, or whole bOrdered By: Sawyer Delgado on 10-22-2024 GFR/1.73 sq M.predicted among non-blacks MDRD (S/P/Bld) [Vol rate/Area] 93 mL/min/{1.73_m2} Normal >60 [facility] Comment on above: mL/min/1.73m2 CKD-EP I Creatinine Equation (2020) Result Comment: mL/m in/1.73m2 CKD-EPI Creatinine Equation (2020) Performed By: #### L 3410.9998, L100.0100, L504.2610, L500.4050 #### [facility] [address] [place], [address] Hemoglobin measurementOrdere d By: Sawyer Delgado on 10-22-2024 Hemoglobin (Bld) [Mass/Vol] 15.2 g/dL Normal 13.0-16.5 [facility] Comment on above: Performed By: #### L 3410.9998, L100.0100, L504.2610, L500.4050 #### [facility] [address] [facility] [place], [place], [address] Immature granulocytes/100 WB C Auto (Bld)Ordered By: Sawyer Delgado on 10-22-2024 Immature granulocytes/100 WBC (Bld) 0.300 % 0.0-0.9 [facility] Comment on above: IG% - Immature Granu locytes (promyelocytes, myelocytes and metamyelocytes) > 1% indicates that a LEFT SHIFT is Present. LDHon 10-22-2024 LDH 191 U/L Normal 87-241 [facility] Comment on above: Order Comment: 1 Result Comment: Hemo lysis present, Results??could be affected. ?? Performed By: #### L 3410.9998, L100.0100, L504.2610, L500.4050 #### [facility] [address] [place], [place], [address] Lactate dehydrogenase (LDH) measurementOrdered By: Sawyer Delgado on 10-22-2024 LDH [Catalytic activity/Vol] 191 U/L 87-241 [facility] Comment on above: Hemolysis present, R esults could be affected. MCV (mean corpuscular volume ) determinationOrdered By: Sawyer Delgado on 10-22-2024 MCV (RBC) [Entitic vol] 87.0 fL Normal 80-94 [facility] Comment on above: Performed By: #### L 3410.9998, L100.0100, L504.2610, L500.4050 #### [facility] [address], [place], [address] Mean corpuscular hemoglobin (MCH) determinationOrdered By: Sawyer Delgado on 10-22-2024 MCH (RBC) [Entitic mass] 29.5 pg Normal 27.0-32.0 [facility] Comment on above: Performed By: #### L 3410.9998, L100.0100, L504.2610, L500.4050 #### [facility] [address] [place], [place], [address] Mean corpuscular hemoglobin concentration (MCHC) determinationOrdered By: Sawyer Delgado on 10-22-2024 MCHC (RBC) [Mass/Vol] 33.9 g/dL Normal 32-36 [facility] Comment on above: Performed By: #### L 3410.9998, L100.0100, L504.2610, L500.4050 #### [facility] [address] [place], [place], [phone] Mean platelet volume determi nationOrdered By: Sawyer Delgado on 10-22-2024 Platelet mean volume (Bld) [Entitic vol] 10.4 fL Normal 6.2-12.0 [facility] Comment on above: Performed By: #### L 3410.9998, L100.0100, L504.2610, L500.4050 #### [facility] [address] [place], [address] Monocyte percentageOrdered B y: Sawyer Delgado on 10-22-2024 Monocytes/100 WBC (Bld) 9.2 % Normal 0-10 [facility] Comment on above: Performed By: #### L 3410.9998, L100.0100, L504.2610, L500.4050 #### [facility] [address] [place], [address] Neutrophil percentageOrdered By: Sawyer Delgado on 10-22-2024 Neutrophils/100 WBC (Bld) 67.5 % Normal 47-70 [facility] Comment on above: Performed By: #### L 3410.9998, L100.0100, L504.2610, L500.4050 #### [facility] [address] [place], [address] Nucleated red blood cell per centageOrdered By: Sawyer Delgado on 10-22-2024 Nucleated RBC/100 WBC (Bld) [Ratio] 0 % 0-5 [facility] Platelet countOrdered By: Christin Delgado on 10-22-2024 Platelets (Bld) [#/Vol] 214 10*3/uL Normal 150-450 [facility] Comment on above: Performed By: #### L 3410.9998, L100.0100, L504.2610, L500.4050 #### [facility] [address] [place], [address] Potassium measurement (mass/ volume)Ordered By: Sawyer Delgado on 10-22-2024 Potassium (Unsp spec) [Mass/Vol] 4.4 mmol/L 3.3-5.1 [facility] Serum creatinine measurement (mass/volume)Ordered By: Sawyer Delgado on 10-22-2024 Creatinine [Mass/Vol] 0.92 mg/dL Normal 0.70-1.20 [facility] Comment on above: Performed By: #### L 3410.9998, L100.0100, L504.2610, L500.4050 #### [facility] [address] [place], [address] Serum globulin measurementOr dered By: Sawyer Delgado on 10-22-2024 Globulin (S) [Mass/Vol] 3.0 g/dL Normal 2.2-4.2 [facility] Comment on above: Performed By: #### L 3410.9998, L100.0100, L504.2610, L500.4050 #### [facility] [address] [place], [address] Serum glucose measurement (m ass/volume)Ordered By: Sawyer Delgado on 10-22-2024 Glucose [Mass/Vol] 126 mg/dL High 70-99 [facility] Comment on above: Performed By: #### L 3410.9998, L100.0100, L504.2610, L500.4050 #### [facility] [address] [place], [address] Serum or plasma alanine arciniega otransferase (ALT) measurementOrdered By: Sawyer Delgado on 10-22-2024 ALT [Catalytic activity/Vol] 26 U/L Normal <=46 [facility] Comment on above: Performed By: #### L 3410.9998, L100.0100, L504.2610, L500.4050 #### [facility] [address] [place], [address] Serum or plasma albumin mary urement (mass/volume)Ordered By: Sawyer Delgado on 10-22-2024 Albumin [Mass/Vol] 4.5 g/dL Normal 3.4-4.8 [facility] Comment on above: Performed By: #### L 3410.9998, L100.0100, L504.2610, L500.4050 #### [facility] [address] [place], [address] Serum or plasma albumin/glob ulin mass ratioOrdered By: Sawyer Delgado on 10-22-2024 Albumin/Globulin [Mass ratio] 1.5 {ratio} Normal 0.9-2.4 [facility] Comment on above: Performed By: #### L 3410.9998, L100.0100, L504.2610, L500.4050 #### [facility] [address] [place], [place], [id number] Serum or plasma alkaline josé miguel sphatase measurementOrdered By: Sawyer Delgado on 10-22-2024 ALP [Catalytic activity/Vol] 75 U/L 40-129 [facility] Serum or plasma calcium mary urement (mass/volume)Ordered By: Sawyer Delgado on 10-22-2024 Calcium [Mass/Vol] 9.3 mg/dL Normal 7.6-11.0 [facility] Comment on above: Performed By: #### L 3410.9998, L100.0100, L504.2610, L500.4050 #### [facility] [address] [place], [place], [id number] Serum or plasma urea nitroge n measurement (mass/volume)Ordered By: Sawyer Delgado on 10-22-2024 Urea nitrogen [Mass/Vol] 14 mg/dL Normal 4-19 [facility] Comment on above: Performed By: #### L 3410.9998, L100.0100, L504.2610, L500.4050 #### [facility] [address] [place], [address] Sodium levelOrdered By: Anthony Delgado on 10-22-2024 Sodium [Moles/Vol] 137 mmol/L Normal 133-145 [facility] Comment on above: Performed By: #### L 3410.9998, L100.0100, L504.2610, L500.4050 #### [facility] [address] [place], [address] Total proteinOrdered By: Glen Delgado on 10-22-2024 Protein [Mass/Vol] 7.5 g/dL 5.9-8.4 [facility] White blood cell (WBC) count Ordered By: Sawyer Delgado on 10-22-2024 WBC (Bld) [#/Vol] 7.5 10*3/uL Normal 4.4-11.0 [facility] Comment on above: Performed By: #### L 3410.9998, L100.0100, L504.2610, L500.4050 #### [facility] [address] [place], [address] Oncology Visit Reporton 07-22 Oncology Visit Report [facility] [address] [place] [address] OFFICE VISIT Date of Service: 08/03/24 1023 MR#: [id number] Acct: [id number] Name: FREDERIC OVALLES Rep #: [id number] : 1960 From: Sawyer Delgado MD Age/Sex: 64/M Location: [facility] Status: Signed HPI Subjective Date of Service [...] and megakaryocytes. 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 RESULTS: BCR/ABL1 Normal Nuclei Positive Nuclei with Dual Fusion 3.33% 96.67% CYTOGENETICS REPORT FROM [facility] INTERPRETATION: Abnormal male karyotype was observed in twenty metaphases analyzed. 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 Bosutinib August 10, 2022-ongoing MMR (January 2023) Interval History Painful kidney stone December 2023, recovered [facility] Medical History Chronic myeloid leukemia Low back [...] Nicotine dependence Atherosclerosis of coronary artery of [place] heart without angina pectoris Obesity (BMI 30.0-34.9) [...] History (Re (more content not included)... Normal [facility] BCR/ABL BLOOD OR BONE MARROW ,T(9;22),QUANTon 07-28-2024 Receiving Status Accessioned in Lab Normal [facility] Comment on above: Performed By: #### B CR/ABL BLOOD OR BONE MARROW,T(9;22),QUANT #### [facility] (DEFAULT) [address] [place] [address] CBC AND ELECTRONIC DIFFon Basophils (Bld) [#/Vol] 0.08 10*3/uL 0.00 - 0.09 K/uL [facility] Basophils/100 WBC (Bld) 1.1 % O [facility] Differential cell count method Nom (Bld) Electronic Differential [facility] Eosinophils (Bld) [#/Vol] 0.37 10*3/uL 0.00 - 0.48 K/uL [facility] Eosinophils/100 WBC (Bld) 5.0 % [facility] Erythrocyte distribution width (RBC) [Ratio] 13.3 % 10.9 - 14.3 % [facility] Hematocrit (Bld) [Volume fraction] 45.3 % 39.6 - 48.8 % [facility] Hemoglobin (Bld) [Mass/Vol] 15.0 g/dL 13.4 - 16.8 g/dL [facility] Immature granulocytes (Bld) [#/Vol] K/uL NINF - 0.07 K/uL [facility] Immature granulocytes/100 WBC (Bld) 0.3 % [facility] Lymphocytes (Bld) [#/Vol] 1.58 10*3/uL 0.83 - 3.57 K/uL [facility] Lymphocytes/100 WBC (Bld) 21.6 % [facility] MCH (RBC) [Entitic mass] 29.0 pg 26.1 - 33.3 pg [facility] MCHC (RBC) [Mass/Vol] 33.1 g/dL 31.9 - 36.5 g/dL [facility] MCV (RBC) [Entitic vol] 87.5 fL 79.0 - 94.5 fL [facility] Monocytes (Bld) [#/Vol] 0.74 10*3/uL 0.24 - 0.93 K/uL [facility] Monocytes/100 WBC (Bld) 10.1 % [facility] Neutrophils (Bld) [#/Vol] 4.54 10*3/uL 1.57 - 6.19 K/uL [facility] Nucleated RBC/100 WBC (Bld) [Ratio] 0.0 % [facility] Platelet mean volume (Bld) [Entitic vol] 10.5 fL 8.7 - 12.3 fL [facility] Platelets (Bld) [#/Vol] 232 10*3/uL 146 - 337 K/uL [facility] RBC (Bld) [#/Vol] 5.18 10*6/uL [facility] Segmented neutrophils/100 WBC (Bld) 61.9 % [facility] WBC (Bld) [#/Vol] 7.33 10*3/uL 3.73 - 10.10 K/uL [facility] Basophils (Bld) [#/Vol] 0.08 10*3/uL Normal 0.00-0.09 [facility] Comment on above: Performed By: #### L AB980 #### [facility] (DEFAULT) [address] [place] [address] Basophils/100 WBC (Bld) 1.1 % Normal [facility] Comment on above: Performed By: #### L AB980 #### [facility] (DEFAULT) [address] [place] [address] DIFF STATUS Electronic Differential Normal [facility] Comment on above: Performed By: #### L [id number] #### [facility] (DEFAULT) [address] [place] [address] Eosinophils (Bld) [#/Vol] 0.37 10*3/uL Normal 0.00-0.48 [facility] Comment on above: Performed By: #### L AB980 #### [facility] (DEFAULT) [address] [place] [address] Eosinophils/100 WBC (Bld) 5.0 % Normal [facility] Comment on above: Performed By: #### L AB980 #### [facility] (DEFAULT) [address] [address] Hematocrit (Bld) [Volume fraction] 45.3 % Normal 39.6-48.8 [facility] Comment on above: Performed By: #### L AB980 #### [facility] (DEFAULT) [address] [place] [address] Hemoglobin (Bld) [Mass/Vol] 15.0 g/dL Normal 13.4-16.8 [facility] Comment on above: Performed By: #### L AB980 #### [facility] (DEFAULT) [address] [address] Immature Grans % 0.3 % Normal [facility] Comment on above: Performed By: #### L AB980 #### [facility] (DEFAULT) [address] [address] Immature Grans Absolute < Normal <=0.07 [facility] Comment on above: Performed By: #### L AB980 #### [facility] (DEFAULT) [address] [address] Lymphocytes (Bld) [#/Vol] 1.58 10*3/uL Normal 0.83-3.57 [facility] Comment on above: Performed By: #### L AB980 #### [facility] (DEFAULT) [address] [address] Lymphocytes/100 WBC (Bld) 21.6 % Normal [facility] Comment on above: Performed By: #### L AB980 #### [facility] (DEFAULT) [address] [address] MCV (RBC) [Entitic vol] 87.5 fL Normal 79.0-94.5 [facility] Comment on above: Performed By: #### L AB980 #### [facility] (DEFAULT) [address] [address] Mean Cell Hgb 29.0 pg Normal 26.1-33.3 [facility] Comment on above: Performed By: #### L AB980 #### [facility] (DEFAULT) [address] [address] Mean Cell Hgb Conc 33.1 g/dL Normal 31.9-36.5 [facility] Comment on above: Performed By: #### L AB980 #### [facility] (DEFAULT) [address] [place] [address] Monocytes (Bld) [#/Vol] 0.74 10*3/uL Normal 0.24-0.93 [facility] Comment on above: Performed By: #### L AB980 #### [facility] (DEFAULT) [address] [place] [address] Monocytes/100 WBC (Bld) 10.1 % Normal [facility] Comment on above: Performed By: #### L AB980 #### [facility] (DEFAULT) [address] [place] [address] Nucleated RBC 0.0 /100 WBC Normal <=0.2 [facility] Comment on above: Performed By: #### L AB980 #### [facility] (DEFAULT) [address] [place] [address] Platelet mean volume (Bld) [Entitic vol] 10.5 fL Normal 8.7-12.3 [facility] Comment on above: Performed By: #### L AB980 #### [facility] (DEFAULT) [address] [place] [address] Platelets (Bld) [#/Vol] 232 10*3/uL Normal 146-337 [facility] Comment on above: Performed By: #### L AB980 #### [facility] (DEFAULT) [address] [place] [address] RBC (Bld) [#/Vol] 5.18 10*6/uL Normal 4.38-5.83 [facility] Comment on above: Performed By: #### L AB980 #### [facility] (DEFAULT) [address] [place] [address] RBC Distribution 13.3 % Normal 10.9-14.3 [facility] Comment on above: Performed By: #### L AB980 #### [facility] (DEFAULT) [address] [place] [address] Segs + Bands Auto 61.9 % Normal [facility] Comment on above: Performed By: #### L AB980 #### [facility] (DEFAULT) [address] [place] [address] Segs + Bands,Absolute Auto 4.54 K/uL Normal 1.57-6.19 [facility] Comment on above: Performed By: #### L AB980 #### [facility] (DEFAULT) [address] [address] WBC (Bld) [#/Vol] 7.33 10*3/uL Normal 3.73-10.10 [facility] Comment on above: Performed By: #### L AB980 #### [facility] (DEFAULT) [address] [address] COMPREHENSIVE METABOLIC PANE Cezar 07-28-2024 Albumin [Mass/Vol] 4.7 g/dL 3.5 - 5.0 g/dL [facility] ALP [Catalytic activity/Vol] 65 U/L 32 - 126 U/L [facility] ALT [Catalytic activity/Vol] 23 U/L 10 - 52 U/L [facility] Anion gap [Moles/Vol] 9 mmol/L 7 - 17 mmol/L [facility] AST [Catalytic activity/Vol] 21 U/L 10 - 39 U/L [facility] Bilirubin [Mass/Vol] 0.4 mg/dL NINF - 1.5 mg/dL [facility] Calcium [Mass/Vol] 9.1 mg/dL 8.6 - 10. 5 mg/dL [facility] Chloride [Moles/Vol] 104 mmol/L 98 - 10 8 mmol/L [facility] CO2 [Moles/Vol] 28 mmol/L 21 - 31 mmol/L [facility] Creatinine [Mass/Vol] 0.97 mg/dL 0.70 - 1.30 mg/dL [facility] eGFR, CKD-EPI, Male 87 - PINF [facility] Comment on above: Reported eGFR is bas ed on the CKD-EPI 2020 equation using creatinine, age, and sex. Glucose [Mass/Vol] 117 mg/dL High 70 - 99 mg/dL [facility] Interpretation and review of laboratory results Abnormal [facility] Osmolality Calc [Osmolality] 287 [facility] Potassium [Moles/Vol] 3.9 mmol/L 3.5 - 5.0 mmol/L [facility] Protein [Mass/Vol] 7.4 g/dL 6.4 - 8.3 g/dL [facility] Sodium [Moles/Vol] 137 mmol/L 135 - 145 mmol/L [facility] Urea nitrogen [Mass/Vol] 9 mg/dL 7 - 25 mg/dL [facility] Urea nitrogen/Creatinine [Mass ratio] 9 mg/mg [facility] Albumin [Mass/Vol] 4.7 g/dL Normal 3.5-5.0 [facility] Comment on above: Performed By: #### C MPN #### [facility] (DEFAULT) [address] [place] [address] ALP [Catalytic activity/Vol] 65 U/L Normal 32-126 [facility] Comment on above: Performed By: #### C MPN #### [facility] (DEFAULT) [address] [place] [address] ALT [Catalytic activity/Vol] 23 U/L Normal 10-52 [facility] Comment on above: Performed By: #### C MPN #### [facility] (DEFAULT) [address] [place] [address] Anion gap [Moles/Vol] 9 mmol/L Normal 7-[address] [facility] Comment on above: Performed By: #### C MPN #### [facility] (DEFAULT) [address] [place] [address] AST [Catalytic activity/Vol] 21 U/L Normal 10-39 [facility] Comment on above: Performed By: #### C MPN #### [facility] (DEFAULT) [address] [place] [address] Bilirubin [Mass/Vol] 0.4 mg/dL Normal <1.5 [facility] Comment on above: Performed By: #### C MPN #### [facility] (DEFAULT) [address] [place] [address] Calcium [Mass/Vol] 9.1 mg/dL Normal 8.6-10.5 [facility] Comment on above: Performed By: #### C MPN #### [facility] (DEFAULT) [address] [place] [address] Chloride [Moles/Vol] 104 mmol/L Normal 98-108 [facility] Comment on above: Performed By: #### C MPN #### [facility] (DEFAULT) [address] [address] CO2 [Moles/Vol] 28 mmol/L Normal 21-31 [facility] Comment on above: Performed By: #### C MPN #### [facility] (DEFAULT) [address] [place] [address] Creatinine [Mass/Vol] 0.97 mg/dL Normal 0.70-1.[address] [facility] Comment on above: Performed By: #### C MPN #### [facility] (DEFAULT) [address] [place] [address] GFR/1.73 sq M.predicted among non-blacks MDRD (S/P/Bld) [Vol rate/Area] 87 mL/min/{1.73_m2} Normal >=60 [facility] Comment on above: Result Comment: Repo rted eGFR is based on the CKD-EPI 2020 equation using creatinine, age, and sex. Performed By: #### C MPN #### [facility] (DEFAULT) [address] [place] [address] Glucose [Mass/Vol] 117 mg/dL High 70-99 [facility] Comment on above: Performed By: #### C MPN #### [facility] (DEFAULT) [address] [place] [address] Osmolality [Osmolality] 287 mosm/kg Normal 278-305 [facility] Comment on above: Performed By: #### C MPN #### [facility] (DEFAULT) [address] [place] [address] Potassium [Moles/Vol] 3.9 mmol/L Normal 3.5-5.[address] [facility] Comment on above: Performed By: #### C MPN #### [facility] (DEFAULT) [address] [place] [address] Protein [Mass/Vol] 7.4 g/dL Normal 6.4-8.3 [facility] Comment on above: Performed By: #### C MPN #### [facility] (DEFAULT) [address] [place] [address] Sodium [Moles/Vol] 137 mmol/L Normal 135-145 [facility] Comment on above: Performed By: #### C MPN #### [facility] (DEFAULT) [address] [place] [address] Urea nitrogen [Mass/Vol] 9 mg/dL Normal 7-25 [facility] Comment on above: Performed By: #### C MPN #### [facility] (DEFAULT) [address] [place] [address] Urea nitrogen/Creatinine [Mass ratio] 9 mg/mg Normal [facility] Comment on above: Performed By: #### C MPN #### [facility] (DEFAULT) [address] [place] [address] L3410.9999on 07-27-2024 [facility] Misc. COMMENT Normal . [facility] Comment on above: Order Comment: LAB T OP ACDA YELLOW TOP WB RF [id number] BCR/ABL Result Comment: Test Ordered: [id number] BCR-ABL1, CML/ALL, PCR, Quant e13a2 (b2a2) transcript [...] Reference Range: . Technical Component performed at [facility] Professional Component performed by: Wrapp Yaquelin Mckeon, PhD, [facility] Director, Molecular Oncology [address] [place] [address] [place] [address] Background Comment LUU Reference Range: [...] developed and its performance characteristics determined by [facility]. It has not been cleared or approved by the Food and Drug Administration. Performed at: [facility] [address] [facility], [facility], [place] [id number] Merchandise Planning Manager: Sherri Davey [facility], Phone: [phone] Performed at: - [facility] [address] [facility], [place] [id number] Merchandise Planning Manager: Sherri Davey [facility], Phone: [phone] Performed at: [address] [id number] Merchandise Planning Manager: Michael Ragsdale PhD, Phone: [phone] Performed By: #### L 100.0100, L500.4050, L3410.9999 #### [facility] [address] [place], [address] CBC W/Diff, Automatedon 12-3 0-2023 Absolute Lymph 1.75 X10 3/uL Normal 0.83-4.51 [facility] Comment on above: Performed By: #### L 100.0100, L500.4050, L3410.9999 #### [facility] [address] [place], [address] Absolute Neut 4.9 X10 3/uL Normal 2.0-7.7 [facility] Comment on above: Performed By: #### L 100.0100, L500.4050, L3410.9999 #### [facility] [address] [place], [address] Basophils/100 WBC (Bld) 0.7 % Normal 0-1 [facility] Comment on above: Performed By: #### L 100.0100, L500.4050, L3410.9999 #### [facility] [address] [place], [address] Eosinophils/100 WBC (Bld) 5.6 % High 0-5 [facility] Comment on above: Performed By: #### L 100.0100, L500.4050, L3410.9999 #### [facility] [address] [place], [address] Erythrocyte distribution width (RBC) [Ratio] 13.4 % Normal 11.6-14.6 [facility] Comment on above: Performed By: #### L 100.0100, L500.4050, L3410.9999 #### [facility] [address] [place], [address] Hematocrit (Bld) [Volume fraction] 44.7 % Normal 40-54 [facility] Comment on above: Performed By: #### L 100.0100, L500.4050, L3410.9999 #### [facility] [address] [place], [address] Hemoglobin (Bld) [Mass/Vol] 15.2 g/dL Normal 13.0-16.5 [facility] Comment on above: Performed By: #### L 100.0100, L500.4050, L3410.9999 #### [facility] [address] [place], [address] IG% 0.200 Normal 0.0-0.9 [facility] Comment on above: Result Comment: IG% - Immature Granulocytes (promyelocytes, myelocytes and metamyelocytes) > 1% indicates that a LEFT SHIFT is Present. Performed By: #### L 100.0100, L500.4050, L3410.9999 #### [facility] [address] [place], [address] Lymphocytes/100 WBC (Bld) 21.6 % Normal 19-41 [facility] Comment on above: Performed By: #### L 100.0100, L500.4050, L3410.9999 #### [facility] [address] [place], [address] MCH (RBC) [Entitic mass] 29.6 pg Normal 27.0-32.0 [facility] Comment on above: Performed By: #### L 100.0100, L500.4050, L3410.9999 #### [facility] [address] [place], [address] MCHC (RBC) [Mass/Vol] 34.0 g/dL Normal 32-36 [facility] Comment on above: Performed By: #### L 100.0100, L500.4050, L3410.9999 #### [facility] [address] [place], [address] MCV (RBC) [Entitic vol] 87.0 fL Normal 80-94 [facility] Comment on above: Performed By: #### L 100.0100, L500.4050, L3410.9999 #### [facility] [address] [place], [address] Monocytes/100 WBC (Bld) 11.1 % High 0-10 [facility] Comment on above: Performed By: #### L 100.0100, L500.4050, L3410.9999 #### [facility] [address] [place], [address] Neutrophils/100 WBC (Bld) 60.8 % Normal 47-70 [facility] Comment on above: Performed By: #### L 100.0100, L500.4050, L3410.9999 #### [facility] [address] [place], [address] Nucleated RBC (Bld) [#/Vol] 0 10*3/uL Normal 0-5 [facility] Comment on above: Performed By: #### L 100.0100, L500.4050, L3410.9999 #### [facility] [address] [place], [address] Platelet mean volume (Bld) [Entitic vol] 10.6 fL Normal 6.2-12.0 [facility] Comment on above: Performed By: #### L 100.0100, L500.4050, L3410.9999 #### [facility] [address] [place], [address] Platelets (Bld) [#/Vol] 233 10*3/uL Normal 150-450 [facility] Comment on above: Performed By: #### L 100.0100, L500.4050, L3410.9999 #### [facility] [address] [place], [address] RBC (Bld) [#/Vol] 5.14 10*6/uL Normal 4.6-6.2 [facility] Comment on above: Performed By: #### L 100.0100, L500.4050, L3410.9999 #### [facility] [address] [place], [address] RDW SD 43.0 fl Normal 35.1-43.9 [facility] Comment on above: Performed By: #### L 100.0100, L500.4050, L3410.9999 #### [facility] [address] [place], [address] WBC (Bld) [#/Vol] 8.1 10*3/uL Normal 4.4-11.0 [facility] Comment on above: Performed By: #### L 100.0100, L500.4050, L3410.9999 #### [facility] [address] [place], [address] Comprehensive Metabolic [facility] 07-20-2024 Albumin [Mass/Vol] 4.3 g/dL Normal 3.2-5.0 [facility] Comment on above: Performed By: #### L 100.0100, L500.4050, L3410.9999 #### [facility] [address] [place], [address] Albumin/Globulin [Mass ratio] 1.2 {ratio} Normal 0.9-2.4 [facility] Comment on above: Performed By: #### L 100.0100, L500.4050, L3410.9999 #### [facility] [address] [place], [address] ALK P 83 U/L Normal 45-117 [facility] Comment on above: Performed By: #### L 100.0100, L500.4050, L3410.9999 #### [facility] [address] [place], [address] ALT [Catalytic activity/Vol] 42 U/L Normal 16-61 [facility] Comment on above: Performed By: #### L 100.0100, L500.4050, L3410.9999 #### [facility] [address] [place], [address] AST [Catalytic activity/Vol] 24 U/L Normal 15-37 [facility] Comment on above: Performed By: #### L 100.0100, L500.4050, L3410.9999 #### [facility] [address] [place], [address] Bilirubin [Mass/Vol] 0.50 mg/dL Normal 0.20-1.00 [facility] Comment on above: Result Comment: For patients on eltrombopag therapy, use of Dimension [place] TBIL is not recommended. Performed By: #### L 100.0100, L500.4050, L3410.9999 #### [facility] [address] [place], [address] BUN/CRE 12.6 RATIO Normal 10-20 [facility] Comment on above: Performed By: #### L 100.0100, L500.4050, L3410.9999 #### [facility] [address] [place], [address] CA,Total 9.2 mg/dL Normal 8.5-10.1 [facility] Comment on above: Performed By: #### L 100.0100, L500.4050, L3410.9999 #### [facility] [address] [place], [address] Chloride [Moles/Vol] 108 mmol/L High 98-107 [facility] Comment on above: Performed By: #### L 100.0100, L500.4050, L3410.9999 #### [facility] [address] [place], [address] CO2 [Moles/Vol] 27.0 mmol/L Normal 21.0-32.0 [facility] Comment on above: Performed By: #### L 100.0100, L500.4050, L3410.9999 #### [facility] [address] [place], [address] Creatinine [Mass/Vol] 0.95 mg/dL Normal 0.70-1.30 [facility] Comment on above: Result Comment: The validity of the calculated GFR GFRAA in patients over 70 years has not been determined. Clinical correlation is essential. Performed By: #### L 100.0100, L500.4050, L3410.9999 #### [facility] [address] [place], [address] ECRCL 100.14 ml/min Normal [facility] Comment on above: Performed By: #### L 100.0100, L500.4050, L3410.9999 #### [facility] [address] [place], [address] EST GFR - AA 103 mL/min Normal >60 [facility] Comment on above: Result Comment: Afri can [place] GFR Calc Performed By: #### L 100.0100, L500.4050, L3410.9999 #### [facility] [address] [place], [address] GAP 5 Normal 5-15 [facility] Comment on above: Performed By: #### L 100.0100, L500.4050, L3410.9999 #### [facility] [address] [place], [address] GFR/1.73 sq M.predicted among non-blacks MDRD (S/P/Bld) [Vol rate/Area] 85 mL/min/{1.73_m2} Normal >60 [facility] Comment on above: Result Comment: Non- GFR Calc Performed By: #### L 100.0100, L500.4050, L3410.9999 #### [facility] [address] [place], [address] Globulin (S) [Mass/Vol] 3.7 g/dL Normal 2.2-4.2 [facility] Comment on above: Performed By: #### L 100.0100, L500.4050, L3410.9999 #### [facility] [address] [place], [address] Glucose [Mass/Vol] 87 mg/dL Normal 74-106 [facility] Comment on above: Performed By: #### L 100.0100, L500.4050, L3410.9999 #### [facility] [address] [place], [address] Potassium [Moles/Vol] 3.9 mmol/L Normal 3.5-5.1 [facility] Comment on above: Performed By: #### L 100.0100, L500.4050, L3410.9999 #### [facility] [address] [place], [address] Sodium [Moles/Vol] 140 mmol/L Normal 136-145 [facility] Comment on above: Performed By: #### L 100.0100, L500.4050, L3410.9999 #### [facility] [address] [place], [address] T PROT 8.0 g/dL Normal 6.4-8.2 [facility] Comment on above: Performed By: #### L 100.0100, L500.4050, L3410.9999 #### [facility] [address] [place], [place], [address] Urea nitrogen [Mass/Vol] 12 mg/dL Normal 7-18 [facility] Comment on above: Performed By: #### L 100.0100, L500.4050, L3410.9999 #### [facility] [address] [place], [place], [address] No Panel InformationOrdered By: Savi Rodriguez on 07-20-2024 Miscellaneous Test COMMENT . [facility] Comment on above: Test Ordered: [id number] BCR-ABL1, CML/ALL, PCR, Vawixg42b4 (b2a2) transcript <0.0032 % % LUU Reference [...] LUU Reference Range: .Technical Component performed at [facility] RTPProfessional Component performed by:[employer] Kaye Mckeon, PhD, FACMGDirector, Molecular [id number] [facility] , [place] [phone] Comment LUU Reference Range: .This assay can detect three different types of BCR-ZXK3ltvtoh transcripts associated with CML, ALL, and AML: [...] PCR primers and probes are specific for BCR-LHV8a57l1, e14a2 and e1a2 fusion transcripts. The RAK0svffvevmcr is amplified as the control for cDNA quantityand quality. Serial dilutions of a validated positivecontrol RNA with known t(9;22) BCR-ABL1 are used asreference for quantification of BCR-ABL1 relative toABL1. The numeric BCR-ABL1 level is reported as % BCR-ABL1/ABL1 and the detection sensitivity is 4.5 log belowthe standard baseline (<0.0032%).This test was developed and its performance characteristicsdetermined by [employer]. It has not been cleared or approvedby the Food and Drug Administration.Performed at: [facility] Your.MD [id number] [employer] [place], [place] [id number] Director: Sherri Davey [facility], Phone: [phone] at: [facility] Your.MD [id number] [place], [place] [id number] Director: Sherri Davey [facility], Phone: [phone] at: [address] [id number] Director: Michael Ragsdale PhD, Phone: [phone] Pulmonary Visit Reporton Pulmonary Visit Report [facility] of [address] [place] [address] OFFICE VISIT Date of Service: 06/29/24 MR#: [id number] Acct: [id number] Name: MARISAPATRICIAFREDERIC Rep #: [id number] : 1960 Provider: SELVIN De La Rosa Age/Sex: 64/M Location: [facility] [place].PMW Status: Signed Assessment and Plan Assessment and [...] Chief Complaint: 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 Normal [facility] Absolute lymphocyte countOrd ered By: Sawyer Delgado on 10-23-2023 Lymphocytes Auto (Unsp spec) [#/Vol] 1.34 10*3/uL 0.83-4.51 [facility] Automated lymphocyte count a s percentage of total leukocytesOrdered By: Sawyer Delgado on 10-23-2023 Lymphocytes/100 WBC Auto (Unsp spec) 18.7 % 19-41 [facility] Basophil percentageOrdered B y: Sawyer Delgado on 10-23-2023 Basophils/100 WBC (Bld) 1.0 % 0-1 [facility] Bilirubin [Mass/Vol] 0.40 mg/dL 0.20-1.00 [facility] Comment on above: For patients on eltr ombopag therapy, use of Dimension [place] TBIL is not recommended. Chloride [Moles/Vol] 105 mmol/L 98-107 [facility] Eosinophils/100 WBC (Bld) 5.7 % 0-5 [facility] Glucose [Mass/Vol] 151 mg/dL 74-106 [facility] Comment on above: Fasting Glucose resu lt greater than or equal to 126 mg/dL suggests DIABETES MELLITUS per A.D.A. criteria. Hemoglobin (Bld) [Mass/Vol] 15.1 g/dL 13.0-16.5 [facility] Monocytes/100 WBC (Bld) 9.6 % 0-10 [facility] Neutrophils (Bld) [#/Vol] 4.6 10*3/uL 2.0-7.7 [facility] Neutrophils/100 WBC (Bld) 64.7 % 47-70 [facility] Potassium [Moles/Vol] 3.9 mmol/L 3.5-5.1 [facility] Protein [Mass/Vol] 7.7 g/dL 6.4-8.2 [facility] Sodium [Moles/Vol] 137 mmol/L 136-145 [facility] WBC (Bld) [#/Vol] 7.2 10*3/uL 4.4-11.0 [facility] Determination of erythrocyte mean corpuscular volume (MCV)Ordered By: Sawyer Delgado on 10-23-2023 MCV (RBC) [Entitic vol] 87.4 fL 80-94 [facility] Erythrocyte distribution wid th ratioOrdered By: Sawyer Delgado on 10-23-2023 Erythrocyte distribution width (RBC) [Ratio] 13.4 % 11.6-14.6 [facility] Erythrocyte distribution wid th standard deviationOrdered By: Sawyer Delgado on 10-23-2023 Erythrocyte distribution width (RBC) [Entitic vol] 43.3 fL 35.1-43.9 [facility] Hematocrit Auto (Bld) [Volum e fraction]Ordered By: [facility] on 10-23-2023 Hematocrit (Bld) [Volume fraction] 45.1 % 40-54 [facility] Immature granulocytes/100 WB C Auto (Bld)Ordered By: [facility] Danny on 10-23-2023 Immature granulocytes/100 WBC (Bld) 0.300 % 0.0-0.9 [facility] Comment on above: IG% - Immature Granu locytes (promyelocytes, myelocytes and metamyelocytes) > 1% indicates that a LEFT SHIFT is Present. Laboratory - Chemistry and C hemistry - challengeOrdered By: [facility] Danny on 10-23-2023 Albumin/Globulin [Mass ratio] 1.0 {ratio} 0.9-2.4 [facility] ALP [Catalytic activity/Vol] 67 U/L 45-117 [facility] ALT [Catalytic activity/Vol] 45 U/L 16-61 [facility] CO2 [Moles/Vol] 28.0 mmol/L 21.0-32.0 [facility] Globulin (S) [Mass/Vol] 3.8 g/dL 2.2-4.2 [facility] Urea nitrogen/Creatinine [Mass ratio] 14.0 mg/mg 10-20 [facility] - Hematology and Cell countsOrdered By: [facility] Danny on 10-23-2023 MCH (RBC) [Entitic mass] 29.3 pg 27.0-32.0 [facility] MCHC (RBC) [Mass/Vol] 33.5 g/dL 32-36 [facility] Nucleated RBC/100 WBC (Bld) [Ratio] 0 % 0-5 [facility] Platelet mean volume (Bld) [Entitic vol] 10.1 fL 6.2-12.0 [facility] Platelets (Bld) [#/Vol] 244 10*3/uL 150-450 [facility] No Panel InformationOrdered By: Sawyer Delgado on 10-23-2023 Estimated Creatinine Clearance Calc 104.24 ml/min [facility] Estimated GFR (MDRD) Amer 105 mL/min >60 [facility] Comment on above: GFR Calc Estimated GFR (MDRD) Non-Af Amer 87 mL/min >60 [facility] Comment on above: Non- GFR Calc RBC Auto (Bld) [#/Vol]Ordere d By: Sawyer Delgado on 10-23-2023 RBC (Bld) [#/Vol] 5.16 10*6/uL 4.6-6.2 [facility] Serum or plasma calcium mary urement (mass/volume)Ordered By: Sawyer Delgado on 10-23-2023 Calcium [Mass/Vol] 8.9 mg/dL 8.5-10.1 [facility] Serum or plasma creatinine m easurement (mass/volume)Ordered By: Sawyer Delgado on 10-23-2023 Creatinine [Mass/Vol] 0.93 mg/dL 0.70-1.30 [facility] Comment on above: The validity of the calculated GFR & GFRAA in patients over 70 years has not been determined. Clinical correlation is essential. Serum or plasma urea nitroge n measurement (mass/volume)Ordered By: Sawyer Delgado on 10-23-2023 Urea nitrogen [Mass/Vol] 13 mg/dL 7-18 [facility] Thin prep Papanicolaou smear with manual screeningOrdered By: Sawyer Delgado on 10-23-2023 Thin prep Papanicolaou smear with manual screening 3.9 g/dL 3.2-5.0 [facility] Thin prep Papanicolaou smear with manual screening 29 U/L 15-37 [facility] Thin prep Papanicolaou smear with manual screening 4 5-15 [facility] RNA EXTRACTIONOrdered By: Sa patrizia Abbott on 07-31-2023 [facility] BCR/ABL BLOOD OR BONE MARROW ,T(9;22),QUANTOrdered By: Moses Cheney on 07-30-2023 Receiving Status Accessioned in Lab [facility] CBC AND ELECTRONIC DIFFon Basophils (Bld) [#/Vol] 0.06 10*3/uL 0.00 - 0.09 K/uL [facility] Basophils/100 WBC (Bld) 0.8 % [facility] Differential cell count method Nom (Bld) Electronic Differential [facility] Eosinophils (Bld) [#/Vol] 0.37 10*3/uL 0.00 - 0.48 K/uL [facility] Eosinophils/100 WBC (Bld) 4.7 % [facility] Erythrocyte distribution width (RBC) [Ratio] 13.5 % 10.9 - 14.3 % [facility] Hematocrit (Bld) [Volume fraction] 45.1 % 39.6 - 48.8 % [facility] Hemoglobin (Bld) [Mass/Vol] 15.5 g/dL 13.4 - 16.8 g/dL [facility] Immature granulocytes (Bld) [#/Vol] K/uL NINF - 0.07 K/uL [facility] Immature granulocytes/100 WBC (Bld) 0.1 % [facility] Lymphocytes (Bld) [#/Vol] 1.62 10*3/uL 0.83 - 3.57 K/uL [facility] Lymphocytes/100 WBC (Bld) 20.6 % [facility] MCH (RBC) [Entitic mass] 30.1 pg 26.1 - 33.3 pg [facility] MCHC (RBC) [Mass/Vol] 34.4 g/dL 31.9 - 36.5 g/dL [facility] MCV (RBC) [Entitic vol] 87.6 fL 79.0 - 94.5 fL [facility] Monocytes (Bld) [#/Vol] 0.73 10*3/uL 0.24 - 0.93 K/uL [facility] Monocytes/100 WBC (Bld) 9.3 % [facility] Neutrophils (Bld) [#/Vol] 5.07 10*3/uL 1.57 - 6.19 K/uL [facility] Nucleated RBC/100 WBC (Bld) [Ratio] 0.0 % [facility] Platelet mean volume (Bld) [Entitic vol] 10.1 fL 8.7 - 12.3 fL [facility] Platelets (Bld) [#/Vol] 257 10*3/uL 146 - 337 K/uL [facility] RBC (Bld) [#/Vol] 5.15 10*6/uL [facility] Segmented neutrophils/100 WBC (Bld) 64.5 % [facility] WBC (Bld) [#/Vol] 7.86 10*3/uL 3.73 - 10.10 K/uL [facility] COMPREHENSIVE METABOLIC PANE Cezar 07-30-2023 Albumin [Mass/Vol] 4.6 g/dL 3.5 - 5.0 g/dL [facility] ALP [Catalytic activity/Vol] 70 U/L 32 - 126 U/L [facility] ALT [Catalytic activity/Vol] 26 U/L 10 - 52 U/L [facility] Anion gap [Moles/Vol] 10 mmol/L 7 - 17 mmol/L [facility] AST [Catalytic activity/Vol] 24 U/L 10 - 39 U/L [facility] Bilirubin [Mass/Vol] 0.3 mg/dL NINF - 1.5 mg/dL [facility] Calcium [Mass/Vol] 9.4 mg/dL 8.6 - 10. 5 mg/dL [facility] Chloride [Moles/Vol] 104 mmol/L 98 - 10 8 mmol/L [facility] CO2 [Moles/Vol] 26 mmol/L 21 - 31 mmol/L [facility] Creatinine [Mass/Vol] 0.96 mg/dL 0.70 - 1.30 mg/dL [facility] eGFR, CKD-EPI, Male 89 - PINF [facility] Comment on above: Reported eGFR is bas ed on the CKD-EPI 2020 equation using creatinine, age, and sex. Glucose [Mass/Vol] 129 mg/dL High 70 - 99 mg[facility]dL [facility] Interpretation and review of laboratory results Abnormal [facility] Osmolality Calc [Osmolality] 287 [facility] Potassium [Moles/Vol] 4.0 mmol/L 3.5 - 5.0 mmol/L [facility] Protein [Mass/Vol] 7.6 g/dL 6.4 - 8.3 g/dL [facility] Sodium [Moles/Vol] 136 mmol/L 135 - 145 mmol/L [facility] Urea nitrogen [Mass/Vol] 11 mg/dL 7 - 25 mg/dL [facility] Urea nitrogen/Creatinine [Mass ratio] 11 mg[facility] XR Spine lumbosacral junctio n Viewson [...] No compression deformity or malalignment. [facility] Radiology Study observation (narrative) [facility] XR Spine lumbosacral junctio n ViewsOrdered By: Nikko Vargas on 07-30-2023 [facility] Work Phone: No Panel InformationOrdered By: Sawyer Delgado on 07-26-2023 Miscellaneous Test See comment [facility] Comment on above: TEST RESULT LIMITSBC [...] by this assay.Director ReviewTechnical Component performed at [facility] RTPProfessional Component performed by:Christopher Mckeon, PhD, FACMGDirector, Molecular [address] [place] [address] Dr.Chapel Coles, [place] [phone] assay can detect three different types of [...] developed and its performance characteristics determined by [employer]. It has not been cleared or approved by the Food and Drug Administration. TESTING PERFORMED AT [facility]. ORIGINAL REPORT ON FILE IN LAB CONTAINS ADDITIONAL TEST SITE INFORMATION. Absolute lymphocyte countOrd ered By: Sawyer Delgado on 04-22-2023 Lymphocytes Auto (Unsp spec) [#/Vol] 1.72 10*3/uL 0.83-4.51 [facility] Basophil percentageOrdered B y: Sawyer Delgado on 04-22-2023 Basophil percentage 2.2 mg/dL 2.5-4.9 [facility] Basophils/100 WBC (Bld) 1.0 % 0-1 [facility] Bilirubin [Mass/Vol] 0.40 mg/dL 0.20-1.00 [facility] Comment on above: For patients on eltr ombopag therapy, use of Dimension [place] TBIL is not recommended. Chloride [Moles/Vol] 106 mmol/L 98-107 [facility] Eosinophils/100 WBC (Bld) 5.3 % 0-5 [facility] Glucose [Mass/Vol] 141 mg/dL 74-106 [facility] Comment on above: Fasting Glucose resu lt greater than or equal to 126 mg/dL suggests DIABETES MELLITUS per A.D.A. criteria. Neutrophils (Bld) [#/Vol] 5.6 10*3/uL 2.0-7.7 [facility] Neutrophils/100 WBC (Bld) 63.1 % 47-70 [facility] Potassium [Moles/Vol] 4.1 mmol/L 3.5-5.1 [facility] Protein [Mass/Vol] 7.7 g/dL 6.4-8.2 [facility] Sodium [Moles/Vol] 138 mmol/L 136-145 [facility] WBC (Bld) [#/Vol] 8.9 10*3/uL 4.4-11.0 [facility] Blood erythrocytes count (nu mber/volume)Ordered By: Sawyer Delgado on 04-22-2023 RBC (Bld) [#/Vol] 5.21 10*6/uL 4.6-6.2 [facility] Blood hemoglobin measurement (mass/volume)Ordered By: Sawyer Delgado on 04-22-2023 Hemoglobin (Bld) [Mass/Vol] 15.6 g/dL 13.0-16.5 [facility] Blood lymphocytes/100 leukoc ytesOrdered By: Sawyer Delgado on 04-22-2023 Lymphocytes/100 WBC (Bld) 19.3 % 19-41 [facility] Blood monocytes/100 leukocyt esOrdered By: Sawyer Delgado on 04-22-2023 Monocytes/100 WBC (Bld) 11.0 % 0-10 [facility] Blood platelet mean volumeOr dered By: Sawyer Delgado on 04-22-2023 Platelet mean volume (Bld) [Entitic vol] 10.6 fL 6.2-12.0 [facility] Determination of erythrocyte mean corpuscular volume (MCV)Ordered By: Sawyer Delgado on 04-22-2023 MCV (RBC) [Entitic vol] 88.7 fL 80-94 [facility] Hematocrit Auto (Bld) [Volum e fraction]Ordered By: Sawyer Delgado on 04-22-2023 Hematocrit (Bld) [Volume fraction] 46.2 % 40-54 [facility] - Chemistry and C hemistry - challengeOrdered By: Sawyer Delgado on 04-22-2023 ALP [Catalytic activity/Vol] 78 U/L 45-117 [facility] ALT [Catalytic activity/Vol] 37 U/L 16-61 [facility] CO2 [Moles/Vol] 27.0 mmol/L 21.0-32.0 [facility] Globulin (S) [Mass/Vol] 3.7 g/dL 2.2-4.2 [facility] Magnesium [Mass/Vol] 2.2 mg/dL 1.6-2.6 [facility] Urea nitrogen/Creatinine [Mass ratio] 10.0 mg/mg 10-20 [facility] - Hematology and Cell countsOrdered By: Sawyer Delgado on 04-22-2023 Erythrocyte distribution width (RBC) [Entitic vol] 44.2 fL 35.1-43.9 [facility] Erythrocyte distribution width (RBC) [Ratio] 13.6 % 11.6-14.6 [facility] Immature granulocytes/100 WBC (Bld) 0.300 % 0.0-0.9 [facility] Comment on above: IG% - Immature Granu locytes (promyelocytes, myelocytes and metamyelocytes) > 1% indicates that a LEFT SHIFT is Present. MCH (RBC) [Entitic mass] 29.9 pg 27.0-32.0 [facility] Nucleated RBC/100 WBC (Bld) [Ratio] 0 % 0-5 [facility] MCHC Auto (RBC) [Mass/Vol]Or dered By: Sawyer Delgado on 04-22-2023 MCHC (RBC) [Mass/Vol] 33.8 g/dL 32-36 [facility] No Panel InformationOrdered By: Sawyer Delgado on 04-22-2023 Estimated Creatinine Clearance Calc 76.42 ml/min [facility] Estimated GFR (MDRD) Amer 87 mL/min >60 [facility] Comment on above: GFR Calc Estimated GFR (MDRD) Non-Af Amer 72 mL/min >60 [facility] Comment on above: Non- GFR Calc Miscellaneous Test See comment [facility] Comment on above: TEST RESULT LIMITSBC R-ABL1, CML/ALL, PCR, Quant e13a2 (b2a2) transcript 0.0313 % e14a2 (b3a2) transcript % <0.0032 % e1a2 transcript % <0.0032 %Interpretation: Positive Abnormal POSITIVE for the BCR-ABL1 e13a2 (b2a2, p210) fusion transcript.Director ReviewTechnical Component performed at [facility] RTPProfessional Component performed by:Christopher Mckeon, PhD, FACMGDirector, Molecular [address] [place] [address] Dr.Chapel ColesREYNOLDS [place], [place] [phone] assay can detect three different types of BCR-ABL1 fusiontranscripts associated with CML, ALL, and AML: e13a2 (uwpvywvacqj5j9) and e14a2 (previously b3a2) (major breakpoint, p210), [...] developed and its performance characteristics determined by [facility]. It has not been cleared or approved by the Food and Drug Administration. TESTING PERFORMED AT [facility]. ORIGINAL REPORT ON FILE IN LAB CONTAINS ADDITIONAL TEST SITE INFORMATION. Platelets bldOrdered By: [place] Danny on 04-22-2023 Platelets (Bld) [#/Vol] 247 10*3/uL 150-450 [facility] Serum or plasma albumin mary urement (mass/volume)Ordered By: Sawyer Delgado on 04-22-2023 Albumin [Mass/Vol] 4.0 g/dL 3.2-5.0 [facility] Serum or plasma albumin/glob ulin mass ratioOrdered By: Sawyer Delgado on 04-22-2023 Albumin/Globulin [Mass ratio] 1.1 {ratio} 0.9-2.4 [facility] Serum or plasma calcium mary urement (mass/volume)Ordered By: Sawyer Delgado on 04-22-2023 Calcium [Mass/Vol] 8.7 mg/dL 8.5-10.1 [facility] Serum or plasma creatinine m easurement (mass/volume)Ordered By: Sawyer Delgado on 04-22-2023 Creatinine [Mass/Vol] 1.10 mg/dL 0.70-1.30 [facility] Comment on above: The validity of the calculated GFR & GFRAA in patients over 70 years has not been determined. Clinical correlation is essential. Serum or plasma urea nitroge n measurement (mass/volume)Ordered By: Sawyer Delgado on 04-22-2023 Urea nitrogen [Mass/Vol] 11 mg/dL 7-18 [facility] Thin prep Papanicolaou smear with manual screeningOrdered By: Sawyer Delgado on 04-22-2023 Thin prep Papanicolaou smear with manual screening 23 U/L 15-37 [facility] Thin prep Papanicolaou smear with manual screening 5 5-15 [facility] Blood Glucose , Office ([phone])Ordered By: Terese Sweet on 04-03-2023 Glucose Glucometer (BldC) [Moles/Vol] 101 1 Normal [facility]; [facility] Work Phone: HgA1C , Office ([phone])Linda quiles By: Terese Sweet on 04-03-2023 HbA1c (Bld) [Mass fraction] 6.4 % Normal 4.6 - 7.1 [facility]; [facility] Work Phone: CBC W/AUTO DIFF WBC ([phone])O rdered By: Machine Operator on 03-28-2023 Basophils (Bld) [#/Vol] 0.1 10*3/uL [...] MCHC (RBC) [Mass/Vol] 33.9 g/dL Normal 31.5-35.7 [facility]; [facility] Work Phone: MCV (RBC) [Entitic vol] 90 fL Normal 79-97 [facility]; [facility] Work Phone: Monocytes (Bld) [#/Vol] 0.8 10*3/uL Normal 0.1-0.9 [facility]; [facility] Work Phone: Monocytes/100 WBC (Bld) 10 % Normal [facility]; [facility] Work Phone: Neutrophils (Bld) [#/Vol] 5.1 10*3/uL Normal 1.4-7.0 [facility]; [facility] Work Phone: Neutrophils/100 WBC (Bld) 67 % Normal [facility]; [facility] Work Phone: Platelets (Bld) [#/Vol] 239 10*3/uL Normal 150-450 [facility]; [facility] Work Phone: RBC (Bld) [#/Vol] 5.35 10*6/uL Normal 4.14-5.80 [facility]; [facility] Work Phone: WBC (Bld) [#/Vol] 7.7 10*3/uL Normal 3.4-10.8 [facility]; [facility] Work Phone: LIPID PANEL ([phone])Ordered B y: Machine Operator on 03-28-2023 Cholesterol [Mass/Vol] 174 mg/dL Normal 100-199 [facility]; [facility] Work Phone: Cholesterol in HDL [Mass/Vol] 52 mg/dL Normal [facility]; [facility] Work Phone: Triglyceride [Mass/Vol] 175 mg/dL Abnormal 0-149 [facility]; [facility] Work Phone: LIPID PANEL ([phone]) 30 mg/dL Normal 5-40 [facility]; [facility] Work Phone: LIPID PANEL ([phone]) 92 mg/dL Normal 0-99 [facility]; [facility] Work Phone: LIPID PANEL ([phone]) 1.8 {ratio} Normal 0.0-3.[address] [facility]; [facility] Work Phone: METABOLIC PANEL, COMPREHENSI VE ([phone])Ordered By: Machine Operator on 03-28-2023 Albumin [Mass/Vol] 4.7 g/dL Normal 3.9-4.9 [facility]; [facility] Work Phone: Albumin/Globulin [Mass ratio] 1.8 {ratio} Normal 1.2-2.2 [facility]; [facility] Work Phone: ALP [Catalytic activity/Vol] 76 U/L Normal 44-121 [facility]; [facility] Work Phone: ALT [Catalytic activity/Vol] 39 U/L Normal 0-44 [facility]; [facility] Work Phone: AST [Catalytic activity/Vol] 30 U/L Normal 0-40 [facility]; [facility] [facility] Work Phone: Bilirubin [Mass/Vol] 0.4 mg/dL Normal 0.0-1.[address] [facility]; [facility] Work Phone: Calcium [Mass/Vol] 9.5 mg/dL Normal 8.6-10.2 [facility] Internal Medicine; [facility] Internal Medicine Work Phone: Chloride [Moles/Vol] 103 mmol/L Normal 96-106 [facility] Internal Medicine; [facility] Internal Medicine Work Phone: CO2 [Moles/Vol] 23 mmol/L Normal 20-29 [facility] Internal Medicine; [facility] Internal Medicine Work Phone: Creatinine [Mass/Vol] 0.98 mg/dL Normal 0.76-1.27 [facility]; [facility] Work Phone: Globulin (S) [Mass/Vol] 2.6 g/dL Normal 1.5-4.5 [facility]; [facility] Work Phone: Glucose [Mass/Vol] 106 mg/dL Abnormal 70-99 [facility]; [facility] Work Phone: Potassium [Moles/Vol] 4.5 mmol/L Normal 3.5-5.2 [facility] prehensive Internal Medicine; [facility] Work Phone: Protein [Mass/Vol] 7.3 g/dL Normal 6.0-8.5 [facility] Internal Medicine; [facility] Work Phone: Sodium [Moles/Vol] 141 mmol/L Normal 134-144 [facility] Internal [facility]; [facility] Work Phone: Urea nitrogen [Mass/Vol] 11 mg/dL Normal 8-27 [facility]; [facility] Work Phone: Urea nitrogen/Creatinine [Mass ratio] 11 mg/mg Normal 10-24 [facility]; [facility] Work Phone: METABOLIC PANEL, COMPREHENSIVE ([id number]) 87 mL/min/1.73 Normal Comprehens [facility] Internal Medicine; [facility] Work Phone: MICROALBUMINOrdered By: Syst em Headend Technician on 03-28-2023 Albumin DL <= 20 mg/L (U) [Mass/Vol] 9.9 ug/mL Normal [facility]; [facility] Work Phone: Albumin/Creatinine (U) [Mass ratio] 11 {mg/g_creat} Normal 0-29 [facility]; [facility] Work Phone: Creatinine (U) [Mass/Vol] 91.0 mg/dL Normal [facility]; [facility] Work Phone: PSA (PROSTATE SPECIFIC ANTIG EN) (V76.44)Ordered By: Machine Operator on 03-28-2023 Prostate specific Ag [Mass/Vol] 0.4 ng/mL Normal 0.0-4.0 [facility]; [facility] Work Phone: TSH ([id number])Ordered By: Syste m Headend Technician on 03-28-2023 TSH Qn 2.700 {uIU/mL} Normal 0.450-4.50 0 [facility]; [facility] Work Phone: URINALYSIS, W/ MICRO ([id number]) Ordered By: Machine Operator on 03-28-2023 Appearance (U) Clear Normal Comprehens [...] Medicine Work Phone: Blood Glucose , Office ([phone] By: Víctor Barton on 12-31-2022 Glucose Glucometer (BldC) [Moles/Vol] 116 1 Normal [facility]; [facility] Work Phone: HgA1C , Office ([phone])Ordere d By: Víctor Barton on 12-31-2022 HbA1c (Bld) [Mass fraction] 6.2 % Normal 4.6 - 7.1 [facility]; [facility] Work Phone: Basophil percentageOrdered B y: Savi Rodriguez on 11-15-2022 Basophil percentage 0-5 SEEN /hpf 0-5 [facility] Bilirubin Test strip Ql (U)O rdered By: Savi Rodriguez on 11-15-2022 Bilirubin Ql (U) Negative Negative [facility] Culture, urineOrdered By: Derik Rodriguez on 11-15-2022 Bacteria identified Cx Nom (U) Culture exhibits no growth. [facility] Bacteria identified Cx Nom (U) Culture exhibits no growth. [facility] Ketones Test strip Ql (U)Ord ered By: Savi UngerMichael on 11-15-2022 Ketones Ql (U) Negative Negative [facility] Mucus LM Ql (Urine sed)Order ed By: Savi UngerMichael on 11-15-2022 Mucus Ql (Urine sed) 0 SEEN /hpf [facility] Nitrite Test strip Ql (U)Ord ered By: Savi UngerMichael on 11-15-2022 Nitrite Ql (U) Negative Negative [facility] Protein Test strip Ql (U)Ord ered By: Savi UngerMichael on 11-15-2022 Protein Ql (U) Negative Negative [facility] Squamous epithelial cells de tection in urine sediment by light microscopyOrdered By: Savi Rodriguez on 11-15-2022 Epithelial cells.squamous LM Ql (Urine sed) 0 SEEN /hpf 0-5 [facility] Urine blood detectionOrdered By: Savi UngerMichael on 11-15-2022 RBC Ql (U) Negative Negative [facility] RBC Ql (U) 0 SEEN /hpf 0-5 [facility] Urine clarityOrdered By: Priscilla Rodriguez on 11-15-2022 Clarity (U) Clear Clear [facility] Urine color determinationOrd ered By: Savi Rodriguez on 11-15-2022 Color (U) Yellow Yellow [facility] Urine glucose detectionOrder ed By: Savi Rodriguez on 11-15-2022 Glucose Ql (U) Normal mg/dl Normal [facility] Urine leukocyte esterase det ection by dipstickOrdered By: Savi Rodriguez on 11-15-2022 Leukocyte esterase Test strip Ql (U) 25 /ul High Negative [facility] Urine pHOrdered By: Savi carvajal on 11-15-2022 pH (U) 7.0 [pH] 5.0 - 8.0 [facility] Urine sediment bacteria coun t by microscopy (number/high power field)Ordered By: Savi Rodriguez on 11-15-2022 Bacteria LM.HPF (Urine sed) [#/Area] 0 /[HPF] None Seen [facility] Urine specific gravity measu rementOrdered By: Savi Rodriguez on 11-15-2022 Specific gravity (U) [Rel density] 1.010 1.002-1.03 0 [facility] Urobilinogen Auto test strip Ql (U)Ordered By: Savi Rodriguez on 11-15-2022 Urobilinogen Ql (U) Normal mg/dl Normal [facility] Absolute lymphocyte countOrd ered By: Dr. Delgado on 10-18-2022 Lymphocytes Auto (Unsp spec) [#/Vol] 1.17 10*3/uL 0.83-4.51 [facility] Basophil percentageOrdered B y: Dr. Delgado on 10-18-2022 Basophils/100 WBC (Bld) 0.8 % 0-1 [facility] Bilirubin [Mass/Vol] 0.30 mg/dL 0.20-1.00 [facility] Comment on above: For patients on eltr ombopag therapy, use of Dimension [place] TBIL is not recommended. Chloride [Moles/Vol] 103 mmol/L 98-107 [facility] Eosinophils/100 WBC (Bld) 4.4 % 0-5 [facility] Glucose [Mass/Vol] 173 mg/dL 74-106 [facility] Comment on above: Fasting Glucose resu lt greater than or equal to 126 mg/dL suggests DIABETES MELLITUS per A.D.A. criteria. Neutrophils (Bld) [#/Vol] 5.5 10*3/uL 2.0-7.7 [facility] Neutrophils/100 WBC (Bld) 70.5 % 47-70 [facility] Potassium [Moles/Vol] 4.5 mmol/L 3.5-5.1 [facility] Protein [Mass/Vol] 7.9 g/dL 6.4-8.2 [facility] Sodium [Moles/Vol] 137 mmol/L 136-145 [facility] WBC (Bld) [#/Vol] 7.7 10*3/uL 4.4-11.0 [facility] Blood erythrocytes count (nu mber/volume)Ordered By: Dr. Delgado on 10-18-2022 RBC (Bld) [#/Vol] 5.08 10*6/uL 4.6-6.2 [facility] Blood hemoglobin measurement (mass/volume)Ordered By: Dr. Delgado on 10-18-2022 Hemoglobin (Bld) [Mass/Vol] 15.0 g/dL 13.0-16.5 [facility] Blood lymphocytes/100 leukoc ytesOrdered By: Dr. Delgado on 10-18-2022 Lymphocytes/100 WBC (Bld) 15.1 % 19-41 [facility] Blood monocytes/100 leukocyt esOrdered By: Dr. Delgado on 10-18-2022 Monocytes/100 WBC (Bld) 9.1 % 0-10 [facility] Blood platelet mean volumeOr dered By: Dr. Delgado on 10-18-2022 Platelet mean volume (Bld) [Entitic vol] 10.0 fL 6.2-12.0 [facility] Determination of erythrocyte mean corpuscular volume (MCV)Ordered By: Dr. Delgado on 10-18-2022 MCV (RBC) [Entitic vol] 89.0 fL 80-94 [facility] Hematocrit Auto (Bld) [Volum e fraction]Ordered By: Dr. Delgado on 10-18-2022 Hematocrit (Bld) [Volume fraction] 45.2 % 40-54 [facility] Laboratory - Chemistry and C hemistry - challengeOrdered By: Dr. Delgado on 10-18-2022 ALP [Catalytic activity/Vol] 78 U/L 45-117 [facility] ALT [Catalytic activity/Vol] 40 U/L 16-61 [facility] CO2 [Moles/Vol] 28.0 mmol/L 21.0-32.0 [facility] Globulin (S) [Mass/Vol] 3.8 g/dL 2.2-4.2 [facility] Urea nitrogen/Creatinine [Mass ratio] 10.1 mg/mg 10-20 [facility] Laboratory - Hematology and Cell countsOrdered By: Dr. Delgado on 10-18-2022 Erythrocyte distribution width (RBC) [Entitic vol] 44.4 fL 35.1-43.9 [facility] Erythrocyte distribution width (RBC) [Ratio] 13.4 % 11.6-14.6 [facility] Immature granulocytes/100 WBC (Bld) 0.100 % 0.0-0.9 [facility] Comment on above: IG% - Immature Granu locytes (promyelocytes, myelocytes and metamyelocytes) > 1% indicates that a LEFT SHIFT is Present. MCH (RBC) [Entitic mass] 29.5 pg 27.0-32.0 [facility] Nucleated RBC/100 WBC (Bld) [Ratio] 0 % 0-5 [facility] MCHC Auto (RBC) [Mass/Vol]Or dered By: Dr. Delgado on 10-18-2022 MCHC (RBC) [Mass/Vol] 33.2 g/dL 32-36 [facility] No Panel InformationOrdered By: Dr. Delgado on 10-18-2022 Estimated Creatinine Clearance Calc 77.13 ml/min [facility] Estimated GFR (MDRD) Amer 88 mL/min >60 [facility] Comment on above: GFR Calc Estimated GFR (MDRD) Non-Af Amer 73 mL/min >60 [facility] Comment on above: Non- GFR Calc Platelets bldOrdered By: Dr. Delgado on 10-18-2022 Platelets (Bld) [#/Vol] 247 10*3/uL 150-450 [facility] Serum or plasma albumin mary urement (mass/volume)Ordered By: Dr. Delgado on 10-18-2022 Albumin [Mass/Vol] 4.1 g/dL 3.2-5.0 [facility] Serum or plasma albumin/glob ulin mass ratioOrdered By: Dr. Delgado on 10-18-2022 Albumin/Globulin [Mass ratio] 1.1 {ratio} 0.9-2.4 [facility] Serum or plasma calcium mary urement (mass/volume)Ordered By: Dr. Delgado on 10-18-2022 Calcium [Mass/Vol] 9.0 mg/dL 8.5-10.1 [facility] Serum or plasma creatinine m easurement (mass/volume)Ordered By: Dr. Delgado on 10-18-2022 Creatinine [Mass/Vol] 1.09 mg/dL 0.70-1.30 [facility] Comment on above: The validity of the calculated GFR & GFRAA in patients over 70 years has not been determined. Clinical correlation is essential. Serum or plasma urea nitroge n measurement (mass/volume)Ordered By: Dr. Delgado on 10-18-2022 Urea nitrogen [Mass/Vol] 11 mg/dL 7-18 [facility] Thin prep Papanicolaou smear with manual screeningOrdered By: Dr. Delgado on 10-18-2022 Thin prep Papanicolaou smear with manual screening 24 U/L 15-37 [facility] Thin prep Papanicolaou smear with manual screening 6 5-15 [facility] Basophil percentageOrdered B y: Dr. Hsu on 10-05-2022 Bilirubin [Mass/Vol] 0.40 mg/dL 0.20-1.00 [facility] Comment on above: For patients on eltr ombopag therapy, use of Dimension [place] TBIL is not recommended. Cholesterol [Mass/Vol] 145 mg/dL <200 [facility] Comment on above: <200 mg/dL Desirable 200-240 mg/dL Borderline >240 mg/dL High Risk Protein [Mass/Vol] 8.2 g/dL 6.4-8.2 [facility] Triglyceride [Mass/Vol] 229 mg/dL <199 [facility] Comment on above: The drugs N-Acetylcy steine and Metamizole may falsely depress this assay.Serum Triglycerides Reference Interval Normal <150 mg/dL Borderline high 150 - 199 mg/dL High 200 - 499 mg/dL Very High > or = 500 mg/dL Direct bilirubinOrdered By: Dr. Hsu on 10-05-2022 Bilirubin.direct [Mass/Vol] 0.13 mg/dL 0.00-0.30 [facility] Laboratory - Chemistry and C hemistry - challengeOrdered By: Dr. Hsu on 10-05-2022 ALP [Catalytic activity/Vol] 80 U/L 45-117 [facility] ALT [Catalytic activity/Vol] 44 U/L 16-61 [facility] Globulin (S) [Mass/Vol] 4.0 g/dL 2.2-4.2 [facility] Serum or plasma albumin mary urement (mass/volume)Ordered By: Dr. Hsu on 10-05-2022 Albumin [Mass/Vol] 4.2 g/dL 3.2-5.0 [facility] Serum or plasma cholesterol in HDL measurement (mass/volume)Ordered By: Dr. Hsu on 10-05-2022 Cholesterol in HDL [Mass/Vol] 44 mg/dL >40 [facility] Comment on above: The drugs N-Acetylcy steine and Metamizole may falsely depress this assay. Reference Range HDL <40 mg/dL Low HDL Cholesterol HDL >or= 60 mg/dL High HDL Cholesterol Serum or plasma cholesterol in VLDL measurement (mass/volume)Ordered By: Dr. Hsu on 10-05-2022 Cholesterol in VLDL [Mass/Vol] 46 mg/dL 5-40 [facility] Serum or plasma low density lipoprotein (LDL) cholesterol measurement (mass/volume)Ordered By: Dr. Hsu on 10-05-2022 Cholesterol in LDL [Mass/Vol] 55 mg/dL 0-130 [facility] Thin prep Papanicolaou smear with manual screeningOrdered By: Dr. Hsu on 10-05-2022 Thin prep Papanicolaou smear with manual screening 25 U/L 15-37 [facility] Absolute lymphocyte countOrd ered By: Dr. Delgado on 10-04-2022 Lymphocytes Auto (Unsp spec) [#/Vol] 1.30 10*3/uL 0.83-4.51 [facility] Basophil percentageOrdered B y: Dr. Delgado on 10-04-2022 Basophil percentage 2.7 mg/dL 2.5-4.9 [facility] Basophils/100 WBC (Bld) 1.0 % 0-1 [facility] Bilirubin [Mass/Vol] 0.40 mg/dL 0.20-1.00 [facility] Comment on above: For patients on eltr ombopag therapy, use of Dimension [place] TBIL is not recommended. Chloride [Moles/Vol] 106 mmol/L 98-107 [facility] Eosinophils/100 WBC (Bld) 4.1 % 0-5 [facility] Glucose [Mass/Vol] 116 mg/dL 74-106 [facility] Comment on above: Fasting Glucose resu lt from 100 to 125 mg/dL suggests IMPAIRED HOMEOSTASIS per A.D.A. criteria. Neutrophils (Bld) [#/Vol] 4.9 10*3/uL 2.0-7.7 [facility] Neutrophils/100 WBC (Bld) 66.7 % 47-70 [facility] Potassium [Moles/Vol] 4.2 mmol/L 3.5-5.1 [facility] Protein [Mass/Vol] 8.0 g/dL 6.4-8.2 [facility] Sodium [Moles/Vol] 139 mmol/L 136-145 [facility] WBC (Bld) [#/Vol] 7.3 10*3/uL 4.4-11.0 [facility] Blood erythrocytes count (nu mber/volume)Ordered By: Dr. Delgado on 10-04-2022 RBC (Bld) [#/Vol] 5.30 10*6/uL 4.6-6.2 [facility] Blood hemoglobin measurement (mass/volume)Ordered By: Dr. Delgado on 10-04-2022 Hemoglobin (Bld) [Mass/Vol] 16.0 g/dL 13.0-16.5 [facility] Blood lymphocytes/100 leukoc ytesOrdered By: Dr. Delgado on 10-04-2022 Lymphocytes/100 WBC (Bld) 17.9 % 19-41 [facility] Blood monocytes/100 leukocyt esOrdered By: Dr. Delgado on 10-04-2022 Monocytes/100 WBC (Bld) 9.9 % 0-10 [facility] Blood platelet mean volumeOr dered By: Dr. Delgado on 10-04-2022 Platelet mean volume (Bld) [Entitic vol] 10.1 fL 6.2-12.0 [facility] Determination of erythrocyte mean corpuscular volume (MCV)Ordered By: Dr. Delgado on 10-04-2022 MCV (RBC) [Entitic vol] 89.2 fL 80-94 [facility] Hematocrit Auto (Bld) [Volum e fraction]Ordered By: Dr. Delgado on 10-04-2022 Hematocrit (Bld) [Volume fraction] 47.3 % 40-54 [facility] Laboratory - Chemistry and C hemistry - challengeOrdered By: Dr. Delgado on 10-04-2022 ALP [Catalytic activity/Vol] 68 U/L 45-117 [facility] ALT [Catalytic activity/Vol] 42 U/L 16-61 [facility] CO2 [Moles/Vol] 27.0 mmol/L 21.0-32.0 [facility] Globulin (S) [Mass/Vol] 3.9 g/dL 2.2-4.2 [facility] Magnesium [Mass/Vol] 2.1 mg/dL 1.6-2.6 [facility] Urea nitrogen/Creatinine [Mass ratio] 11.5 mg/mg 10-20 [facility] Laboratory - Hematology and Cell countsOrdered By: Dr. Delgado on 10-04-2022 Erythrocyte distribution width (RBC) [Entitic vol] 43.5 fL 35.1-43.9 [facility] Erythrocyte distribution width (RBC) [Ratio] 13.3 % 11.6-14.6 [facility] Immature granulocytes/100 WBC (Bld) 0.400 % 0.0-0.9 [facility] Comment on above: IG% - Immature Granu locytes (promyelocytes, myelocytes and metamyelocytes) > 1% indicates that a LEFT SHIFT is Present. MCH (RBC) [Entitic mass] 30.2 pg 27.0-32.0 [facility] Nucleated RBC/100 WBC (Bld) [Ratio] 0 % 0-5 [facility] MCHC Auto (RBC) [Mass/Vol]Or dered By: Dr. Delgado on 10-04-2022 MCHC (RBC) [Mass/Vol] 33.8 g/dL 32-36 [facility] No Panel InformationOrdered By: Dr. Delgado on 10-04-2022 Estimated Creatinine Clearance Calc 87.57 ml/min [facility] Estimated GFR (MDRD) Amer 102 mL/min >60 [facility] Comment on above: GFR Calc Estimated GFR (MDRD) Non-Af Amer 84 mL/min >60 [facility] Comment on above: Non- GFR Calc Platelets bldOrdered By: Dr. Delgado on 10-04-2022 Platelets (Bld) [#/Vol] 253 10*3/uL 150-450 [facility] Serum or plasma albumin mary urement (mass/volume)Ordered By: Dr. Delgado on 10-04-2022 Albumin [Mass/Vol] 4.1 g/dL 3.2-5.0 [facility] Serum or plasma albumin/glob ulin mass ratioOrdered By: Dr. Delgado on 10-04-2022 Albumin/Globulin [Mass ratio] 1.1 {ratio} 0.9-2.4 [facility] Serum or plasma calcium mary urement (mass/volume)Ordered By: Dr. Delgado on 10-04-2022 Calcium [Mass/Vol] 9.1 mg/dL 8.5-10.1 [facility] Serum or plasma creatinine m easurement (mass/volume)Ordered By: Dr. Delgado on 10-04-2022 Creatinine [Mass/Vol] 0.96 mg/dL 0.70-1.30 [facility] Comment on above: The validity of the calculated GFR & GFRAA in patients over 70 years has not been determined. Clinical correlation is essential. Serum or plasma urea nitroge n measurement (mass/volume)Ordered By: Dr. Delgado on 10-04-2022 Urea nitrogen [Mass/Vol] 11 mg/dL 7-18 [facility] Thin prep Papanicolaou smear with manual screeningOrdered By: Dr. Delgado on 10-04-2022 Thin prep Papanicolaou smear with manual screening 27 U/L 15-37 [facility] Thin prep Papanicolaou smear with manual screening 6 5-15 [facility] Blood Glucose , Office ([phone])Ordered By: Loulou Church on 09-27-2022 Glucose Glucometer (BldC) [Moles/Vol] 104 1 Normal [facility]; [facility] Work Phone: CBC W/AUTO DIFF WBC ([phone])O rdered By: Machine Operator on 09-27-2022 Basophils (Bld) [#/Vol] 0.1 10*3/uL [...] MCHC (RBC) [Mass/Vol] 33.9 g/dL Normal 31.5-35.7 [facility] prehensive Internal Medicine; [facility] Work Phone: MCV (RBC) [Entitic vol] 89 fL Normal 79-97 [facility]; [facility] Work Phone: Monocytes (Bld) [#/Vol] 0.7 10*3/uL Normal 0.1-0.9 [facility]; [facility] Work Phone: Monocytes/100 WBC (Bld) 11 % Normal [facility]; [facility] Work Phone: Neutrophils (Bld) [#/Vol] 4.3 10*3/uL Normal 1.4-7.0 [facility]; [facility] Work Phone: Neutrophils/100 WBC (Bld) 66 % Normal [facility]; [facility] Work Phone: Platelets (Bld) [#/Vol] 234 10*3/uL Normal 150-450 [facility]; [facility] Work Phone: RBC (Bld) [#/Vol] 5.06 10*6/uL Normal 4.14-5.80 [facility] ehensive Internal Medicine; [facility] Work Phone: WBC (Bld) [#/Vol] 6.5 10*3/uL Normal 3.4-10.8 [facility]; [facility] Work Phone: HgA1C , Office ([phone])Linda quiles By: Loulou Church on 09-27-2022 HbA1c (Bld) [Mass fraction] 6.7 % Normal 4.6 - 7.1 [facility]; [facility] Work Phone: LIPID PANEL ([id number])Ordered B y: Machine Operator on 09-27-2022 Cholesterol [Mass/Vol] 138 mg/dL Normal 100-199 [facility]; [facility] Work Phone: Cholesterol in HDL [Mass/Vol] 42 mg/dL Normal [facility]; [facility] Work Phone: Triglyceride [Mass/Vol] 138 mg/dL Normal 0-149 [facility]; [facility] Work Phone: LIPID PANEL ([id number]) 24 mg/dL Normal 5-40 [facility] ens[facility]; [facility] Work Phone: LIPID PANEL ([id number]) 72 mg/dL Normal 0-99 [facility] Internal [facility]; [facility] Work Phone: LIPID PANEL ([id number]) 1.7 {ratio} Normal 0.0-3.6 [facility]; [facility] Work Phone: METABOLIC PANEL, COMPREHENSI VE ([phone])Ordered By: Machine Operator on 09-27-2022 Albumin [Mass/Vol] 4.6 g/dL Normal 3.8-4.8 [facility]; [facility] Work [...] Phone: Bilirubin [Mass/Vol] 0.3 mg/dL Normal 0.0-1.[address] [facility]; [facility] Work Phone: Calcium [Mass/Vol] 9.5 mg/dL Normal 8.6-10.2 [facility]; [facility] Work Phone: Chloride [Moles/Vol] 103 mmol/L Normal 96-106 [facility] rehensive Internal Medicine; [facility] Work Phone: CO2 [Moles/Vol] 24 mmol/L Normal 20-29 [facility]; [facility] Work Phone: Creatinine [Mass/Vol] 0.91 mg/dL Normal 0.76-1.27 [facility] prehensive Internal Medicine; [facility] Work Phone: Globulin (S) [Mass/Vol] 2.5 g/dL Normal 1.5-4.5 [facility]; [facility] Work Phone: Glucose [Mass/Vol] 109 mg/dL Abnormal 70-99 [facility]; [facility] Work Phone: Potassium [Moles/Vol] 4.5 mmol/L Normal 3.5-5.2 [facility]; [facility] Work Phone: Protein [Mass/Vol] 7.1 g/dL Normal 6.0-8.5 [facility]; [facility] Work Phone: Sodium [Moles/Vol] 140 mmol/L Normal 134-144 [facility]; [facility] Work Phone: Urea nitrogen [Mass/Vol] 10 mg/dL Normal 8-27 [facility]; [facility] Work Phone: Urea nitrogen/Creatinine [Mass ratio] 11 mg/mg Normal 10-24 [facility]; [facility] Work Phone: METABOLIC PANEL, COMPREHENSIVE ([phone]) 95 mL/min/1.73 Normal [facility]; [facility] Work Phone: MICROALBUMINOrdered By: Syst em Headend Technician on 09-27-2022 Albumin DL <= 20 mg/L (U) [Mass/Vol] 20.5 ug/mL Normal [facility]; [facility] Work Phone: Albumin/Creatinine (U) [Mass ratio] 16 {mg/g_creat} Normal 0-29 [facility]; [facility] Work Phone: Creatinine (U) [Mass/Vol] 130.5 mg/dL Normal [facility]; [facility] Work Phone: TSH ([phone])Ordered By: Syste m Headend Technician on 09-27-2022 TSH Qn 2.710 {uIU/mL} Normal 0.450-4.50 0 [facility]; [facility] Work Phone: URINALYSIS, W/ MICRO ([id number]) Ordered By: Machine Operator on 09-27-2022 Appearance (U) Cloudy Abnormal Comprehens [...] Auto (Unsp spec) [#/Vol] 1.39 10*3/uL 0.83-4.51 [facility] Basophil percentageOrdered B y: Dr. Delgado on 09-06-2022 Basophil percentage 2.7 mg/dL 2.5-4.9 [facility] Basophils/100 WBC (Bld) 0.8 % 0-1 [facility] Bilirubin [Mass/Vol] 0.40 mg/dL 0.20-1.00 [facility] Comment on above: For patients on eltr ombopag therapy, use of Dimension [place] TBIL is not recommended. Chloride [Moles/Vol] 108 mmol/L 98-107 [facility] Eosinophils/100 WBC (Bld) 4.2 % 0-5 [facility] Glucose [Mass/Vol] 116 mg/dL 74-106 [facility] Comment on above: Fasting Glucose resu lt from 100 to 125 mg/dL suggests IMPAIRED HOMEOSTASIS per A.D.A. criteria. Neutrophils (Bld) [#/Vol] 4.1 10*3/uL 2.0-7.7 [facility] Neutrophils/100 WBC (Bld) 62.8 % 47-70 [facility] Potassium [Moles/Vol] 3.9 mmol/L 3.5-5.1 [facility] Protein [Mass/Vol] 7.9 g/dL 6.4-8.2 [facility] Sodium [Moles/Vol] 141 mmol/L 136-145 [facility] WBC (Bld) [#/Vol] 6.6 10*3/uL 4.4-11.0 [facility] Blood erythrocytes count (nu mber/volume)Ordered By: Dr. Delgado on 09-06-2022 RBC (Bld) [#/Vol] 5.03 10*6/uL 4.6-6.2 [facility] Blood hemoglobin measurement (mass/volume)Ordered By: Dr. Delgado on 09-06-2022 Hemoglobin (Bld) [Mass/Vol] 15.2 g/dL 13.0-16.5 [facility] Blood lymphocytes/100 leukoc ytesOrdered By: Dr. Delgado on 09-06-2022 Lymphocytes/100 WBC (Bld) 21.1 % 19-41 [facility] Blood monocytes/100 leukocyt esOrdered By: Dr. Delgado on 09-06-2022 Monocytes/100 WBC (Bld) 10.8 % 0-10 [facility] Blood platelet mean volumeOr dered By: Dr. Delgado on 09-06-2022 Platelet mean volume (Bld) [Entitic vol] 9.8 fL 6.2-12.0 [facility] Determination of erythrocyte mean corpuscular volume (MCV)Ordered By: Dr. Delgado on 09-06-2022 MCV (RBC) [Entitic vol] 90.3 fL 80-94 [facility] Hematocrit Auto (Bld) [Volum e fraction]Ordered By: Dr. Delgado on 09-06-2022 Hematocrit (Bld) [Volume fraction] 45.4 % 40-54 [facility] Hemoglobin in reticulocytes (mass per reticulocyte)Ordered By: Dr. Delgado on 09-06-2022 Hemoglobin (Reticulocytes) [Entitic mass] 33.1 pg 30-35 [facility] Laboratory - Chemistry and C hemistry - challengeOrdered By: Dr. Delgado on 09-06-2022 ALP [Catalytic activity/Vol] 70 U/L 45-117 [facility] ALT [Catalytic activity/Vol] 37 U/L 16-61 [facility] CO2 [Moles/Vol] 28.0 mmol/L 21.0-32.0 [facility] Globulin (S) [Mass/Vol] 3.9 g/dL 2.2-4.2 [facility] Magnesium [Mass/Vol] 2.1 mg/dL 1.6-2.6 [facility] Urea nitrogen/Creatinine [Mass ratio] 15.3 mg/mg 10-20 [facility] Laboratory - Hematology and Cell countsOrdered By: Dr. Delgado on 09-06-2022 Erythrocyte distribution width (RBC) [Entitic vol] 43.3 fL 35.1-43.9 [facility] Erythrocyte distribution width (RBC) [Ratio] 13.2 % 11.6-14.6 [facility] Immature granulocytes/100 WBC (Bld) 0.300 % 0.0-0.9 [facility] Comment on above: IG% - Immature Granu locytes (promyelocytes, myelocytes and metamyelocytes) > 1% indicates that a LEFT SHIFT is Present. MCH (RBC) [Entitic mass] 30.2 pg 27.0-32.0 [facility] Nucleated RBC/100 WBC (Bld) [Ratio] 0 % 0-5 [facility] MCHC Auto (RBC) [Mass/Vol]Or dered By: Dr. Delgado on 09-06-2022 MCHC (RBC) [Mass/Vol] 33.5 g/dL 32-36 [facility] No Panel InformationOrdered By: Dr. Delgado on 09-06-2022 Estimated Creatinine Clearance Calc 91.38 ml/min [facility] Estimated GFR (MDRD) Amer 108 mL/min >60 [facility] Comment on above: GFR Calc Estimated GFR (MDRD) Non-Af Amer 89 mL/min >60 [facility] Comment on above: Non- GFR Calc Immature Reticulocyte Fraction 5.70 % 3.00-15.90 [facility] Reticulocyte Count 0.95 % 0.5-1.5 [facility] Platelets bldOrdered By: Dr. Delgado on 09-06-2022 Platelets (Bld) [#/Vol] 233 10*3/uL 150-450 [facility] Serum or plasma albumin mary urement (mass/volume)Ordered By: Dr. Delgado on 09-06-2022 Albumin [Mass/Vol] 4.0 g/dL 3.2-5.0 [facility] Serum or plasma albumin/glob ulin mass ratioOrdered By: Dr. Delgado on 09-06-2022 Albumin/Globulin [Mass ratio] 1.0 {ratio} 0.9-2.4 [facility] Serum or plasma calcium mary urement (mass/volume)Ordered By: Dr. Delgado on 09-06-2022 Calcium [Mass/Vol] 9.0 mg/dL 8.5-10.1 [facility] Serum or plasma creatinine m easurement (mass/volume)Ordered By: Dr. Delgado on 09-06-2022 Creatinine [Mass/Vol] 0.92 mg/dL 0.70-1.30 [facility] Comment on above: The validity of the calculated GFR & GFRAA in patients over 70 years has not been determined. Clinical correlation is essential. Serum or plasma urea nitroge n measurement (mass/volume)Ordered By: Dr. Delgado on 09-06-2022 Urea nitrogen [Mass/Vol] 14 mg/dL 7-18 [facility] Thin prep Papanicolaou smear with manual screeningOrdered By: Dr. Delgado on 09-06-2022 Thin prep Papanicolaou smear with manual screening 24 U/L 15-37 [facility] Thin prep Papanicolaou smear with manual screening 5 5-15 [facility] Absolute lymphocyte countOrd ered By: Dr. Delgado on 08-23-2022 Lymphocytes Auto (Unsp spec) [#/Vol] 1.39 10*3/uL 0.83-4.51 [facility] Basophil percentageOrdered B y: Dr. Delgado on 08-23-2022 Basophil percentage 2.9 mg/dL 2.5-4.9 [facility] Basophils/100 WBC (Bld) 0.7 % 0-1 [facility] Bilirubin [Mass/Vol] 0.50 mg/dL 0.20-1.00 [facility] Comment on above: For patients on eltr ombopag therapy, use of Dimension [place] TBIL is not recommended. Chloride [Moles/Vol] 105 mmol/L 98-107 [facility] Eosinophils/100 WBC (Bld) 4.0 % 0-5 [facility] Glucose [Mass/Vol] 155 mg/dL 74-106 [facility] Comment on above: Fasting Glucose resu lt greater than or equal to 126 mg/dL suggests DIABETES MELLITUS per A.D.A. criteria. Neutrophils (Bld) [#/Vol] 4.9 10*3/uL 2.0-7.7 [facility] Neutrophils/100 WBC (Bld) 67.0 % 47-70 [facility] Potassium [Moles/Vol] 3.9 mmol/L 3.5-5.1 [facility] Protein [Mass/Vol] 8.3 g/dL 6.4-8.2 [facility] Sodium [Moles/Vol] 140 mmol/L 136-145 [facility] WBC (Bld) [#/Vol] 7.3 10*3/uL 4.4-11.0 [facility] Blood erythrocytes count (nu mber/volume)Ordered By: Dr. Delgado on 08-23-2022 RBC (Bld) [#/Vol] 5.30 10*6/uL 4.6-6.2 [facility] Blood hemoglobin measurement (mass/volume)Ordered By: Dr. Delgado on 08-23-2022 Hemoglobin (Bld) [Mass/Vol] 16.2 g/dL 13.0-16.5 [facility] Blood lymphocytes/100 leukoc ytesOrdered By: Dr. Delgado on 08-23-2022 Lymphocytes/100 WBC (Bld) 19.1 % 19-41 [facility] Blood monocytes/100 leukocyt esOrdered By: Dr. Delgado on 08-23-2022 Monocytes/100 WBC (Bld) 9.1 % 0-10 [facility] Blood platelet mean volumeOr dered By: Dr. Delgado on 08-23-2022 Platelet mean volume (Bld) [Entitic vol] 10.2 fL 6.2-12.0 [facility] Determination of erythrocyte mean corpuscular volume (MCV)Ordered By: Dr. Delgado on 08-23-2022 MCV (RBC) [Entitic vol] 90.8 fL 80-94 [facility] Hematocrit Auto (Bld) [Volum e fraction]Ordered By: Dr. Delgado on 08-23-2022 Hematocrit (Bld) [Volume fraction] 48.1 % 40-54 [facility] Hemoglobin in reticulocytes (mass per reticulocyte)Ordered By: Dr. Delgado on 08-23-2022 Hemoglobin (Reticulocytes) [Entitic mass] 32.3 pg 30-35 [facility] Laboratory - Chemistry and C hemistry - challengeOrdered By: Dr. Delgado on 08-23-2022 ALP [Catalytic activity/Vol] 82 U/L 45-117 [facility] ALT [Catalytic activity/Vol] 26 U/L 16-61 [facility] CO2 [Moles/Vol] 28.0 mmol/L 21.0-32.0 [facility] Globulin (S) [Mass/Vol] 4.0 g/dL 2.2-4.2 [facility] Magnesium [Mass/Vol] 2.1 mg/dL 1.6-2.6 [facility] Urea nitrogen/Creatinine [Mass ratio] 9.8 mg/mg 10-20 [facility] - Hematology and Cell countsOrdered By: Dr. Delgado on 08-23-2022 Erythrocyte distribution width (RBC) [Entitic vol] 43.3 fL 35.1-43.9 [facility] Erythrocyte distribution width (RBC) [Ratio] 13.0 % 11.6-14.6 [facility] Immature granulocytes/100 WBC (Bld) 0.100 % 0.0-0.9 [facility] Comment on above: IG% - Immature Granu locytes (promyelocytes, myelocytes and metamyelocytes) > 1% indicates that a LEFT SHIFT is Present. MCH (RBC) [Entitic mass] 30.6 pg 27.0-32.0 [facility] Nucleated RBC/100 WBC (Bld) [Ratio] 0 % 0-5 [facility] MCHC Auto (RBC) [Mass/Vol]Or dered By: Dr. Delgado on 08-23-2022 MCHC (RBC) [Mass/Vol] 33.7 g/dL 32-36 [facility] No Panel InformationOrdered By: Dr. Delgado on 08-23-2022 Estimated Creatinine Clearance Calc 82.42 ml/min [facility] Estimated GFR (MDRD) Amer 95 mL/min >60 [facility] Comment on above: GFR Calc Estimated GFR (MDRD) Non-Af Amer 79 mL/min >60 [facility] Comment on above: Non- GFR Calc Immature Reticulocyte Fraction 1.60 % 3.00-15.90 [facility] Reticulocyte Count 0.80 % 0.5-1.5 [facility] Platelets bldOrdered By: Dr. Delgado on 08-23-2022 Platelets (Bld) [#/Vol] 230 10*3/uL 150-450 [facility] Serum or plasma albumin mary urement (mass/volume)Ordered By: Dr. Delgado on 08-23-2022 Albumin [Mass/Vol] 4.3 g/dL 3.2-5.0 [facility] Serum or plasma albumin/glob ulin mass ratioOrdered By: Dr. Delgado on 08-23-2022 Albumin/Globulin [Mass ratio] 1.1 {ratio} 0.9-2.4 [facility] Serum or plasma calcium mary urement (mass/volume)Ordered By: Dr. Delgado on 08-23-2022 Calcium [Mass/Vol] 9.1 mg/dL 8.5-10.1 [facility] Serum or plasma creatinine m easurement (mass/volume)Ordered By: Dr. Delgado on 08-23-2022 Creatinine [Mass/Vol] 1.02 mg/dL 0.70-1.30 [facility] Comment on above: The validity of the calculated GFR & GFRAA in patients over 70 years has not been determined. Clinical correlation is essential. Serum or plasma urea nitroge n measurement (mass/volume)Ordered By: Dr. Delgado on 08-23-2022 Urea nitrogen [Mass/Vol] 10 mg/dL 7-18 [facility] Thin prep Papanicolaou smear with manual screeningOrdered By: Dr. Delgado on 08-23-2022 Thin prep Papanicolaou smear with manual screening 22 U/L 15-37 [facility] Thin prep Papanicolaou smear with manual screening 7 5-15 [facility] Absolute lymphocyte countOrd ered By: Dr. Delgado on 08-16-2022 Lymphocytes Auto (Unsp spec) [#/Vol] 1.25 10*3/uL 0.83-4.51 [facility] Basophil percentageOrdered B y: Dr. Delgado on 08-16-2022 Basophils/100 WBC (Bld) 1.1 % 0-1 [facility] Bilirubin [Mass/Vol] 0.40 mg/dL 0.20-1.00 [facility] Comment on above: For patients on eltr ombopag therapy, use of Dimension [place] TBIL is not recommended. Chloride [Moles/Vol] 105 mmol/L 98-107 [facility] Eosinophils/100 WBC (Bld) 5.6 % 0-5 [facility] Glucose [Mass/Vol] 101 mg/dL 74-106 [facility] Comment on above: Fasting Glucose resu lt from 100 to 125 mg/dL suggests IMPAIRED HOMEOSTASIS per A.D.A. criteria. Neutrophils (Bld) [#/Vol] 4.1 10*3/uL 2.0-7.7 [facility] Neutrophils/100 WBC (Bld) 61.5 % 47-70 [facility] Potassium [Moles/Vol] 4.1 mmol/L 3.5-5.1 [facility] Protein [Mass/Vol] 7.6 g/dL 6.4-8.2 [facility] Sodium [Moles/Vol] 140 mmol/L 136-145 [facility] WBC (Bld) [#/Vol] 6.6 10*3/uL 4.4-11.0 [facility] Blood erythrocytes count (nu mber/volume)Ordered By: Dr. Delgado on 08-16-2022 RBC (Bld) [#/Vol] 5.16 10*6/uL 4.6-6.2 [facility] Blood hemoglobin measurement (mass/volume)Ordered By: Dr. Delgado on 08-16-2022 Hemoglobin (Bld) [Mass/Vol] 15.6 g/dL 13.0-16.5 [facility] Blood lymphocytes/100 leukoc ytesOrdered By: Dr. Delgado on 08-16-2022 Lymphocytes/100 WBC (Bld) 18.9 % 19-41 [facility] Blood monocytes/100 leukocyt esOrdered By: Dr. Delgado on 08-16-2022 Monocytes/100 WBC (Bld) 12.7 % 0-10 [facility] Blood platelet mean volumeOr dered By: Dr. Delgado on 08-16-2022 Platelet mean volume (Bld) [Entitic vol] 10.1 fL 6.2-12.0 [facility] Determination of erythrocyte mean corpuscular volume (MCV)Ordered By: Dr. Delgado on 08-16-2022 MCV (RBC) [Entitic vol] 91.9 fL 80-94 [facility] Hematocrit Auto (Bld) [Volum e fraction]Ordered By: Dr. Delgado on 08-16-2022 Hematocrit (Bld) [Volume fraction] 47.4 % 40-54 [facility] Hemoglobin in reticulocytes (mass per reticulocyte)Ordered By: Dr. Delgado on 08-16-2022 Hemoglobin (Reticulocytes) [Entitic mass] 33.7 pg 30-35 [facility] - Chemistry and C hemistry - challengeOrdered By: Dr. Delgado on 08-16-2022 ALP [Catalytic activity/Vol] 68 U/L 45-117 [facility] ALT [Catalytic activity/Vol] 25 U/L 16-61 [facility] CO2 [Moles/Vol] 29.0 mmol/L 21.0-32.0 [facility] Globulin (S) [Mass/Vol] 3.7 g/dL 2.2-4.2 [facility] Urea nitrogen/Creatinine [Mass ratio] 13.8 mg/mg 10-20 [facility] - Hematology and Cell countsOrdered By: Dr. Delgado on 08-16-2022 Erythrocyte distribution width (RBC) [Entitic vol] 44.0 fL 35.1-43.9 [facility] Erythrocyte distribution width (RBC) [Ratio] 13.0 % 11.6-14.6 [facility] Immature granulocytes/100 WBC (Bld) 0.200 % 0.0-0.9 [facility] Comment on above: IG% - Immature Granu locytes (promyelocytes, myelocytes and metamyelocytes) > 1% indicates that a LEFT SHIFT is Present. MCH (RBC) [Entitic mass] 30.2 pg 27.0-32.0 [facility] Nucleated RBC/100 WBC (Bld) [Ratio] 0 % 0-5 [facility] MCHC Auto (RBC) [Mass/Vol]Or dered By: Dr. Delgado on 08-16-2022 MCHC (RBC) [Mass/Vol] 32.9 g/dL 32-36 [facility] No Panel InformationOrdered By: Dr. Delgado on 08-16-2022 Estimated Creatinine Clearance Calc 96.63 ml/min [facility] Estimated GFR (MDRD) Amer 115 mL/min >60 [facility] Comment on above: GFR Calc Estimated GFR (MDRD) Non-Af Amer 95 mL/min >60 [facility] Comment on above: Non- GFR Calc Immature Reticulocyte Fraction 6.00 % 3.00-15.90 [facility] Reticulocyte Count 0.88 % 0.5-1.5 [facility] Platelets bldOrdered By: Dr. Delgado on 08-16-2022 Platelets (Bld) [#/Vol] 227 10*3/uL 150-450 [facility] Serum or plasma albumin mary urement (mass/volume)Ordered By: Dr. Delgado on 08-16-2022 Albumin [Mass/Vol] 3.9 g/dL 3.2-5.0 [facility] Serum or plasma albumin/glob ulin mass ratioOrdered By: Dr. Delgado on 08-16-2022 Albumin/Globulin [Mass ratio] 1.1 {ratio} 0.9-2.4 [facility] Serum or plasma calcium mary urement (mass/volume)Ordered By: Dr. Delgado on 08-16-2022 Calcium [Mass/Vol] 8.9 mg/dL 8.5-10.1 [facility] Serum or plasma creatinine m easurement (mass/volume)Ordered By: Dr. Delgado on 08-16-2022 Creatinine [Mass/Vol] 0.87 mg/dL 0.70-1.30 [facility] Comment on above: The validity of the calculated GFR & GFRAA in patients over 70 years has not been determined. Clinical correlation is essential. Serum or plasma urea nitroge n measurement (mass/volume)Ordered By: Dr. Delgado on 08-16-2022 Urea nitrogen [Mass/Vol] 12 mg/dL 7-18 [facility] Thin prep Papanicolaou smear with manual screeningOrdered By: Dr. Delgado on 08-16-2022 Thin prep Papanicolaou smear with manual screening 19 U/L 15-37 [facility] Thin prep Papanicolaou smear with manual screening 6 5-15 [facility] No Panel InformationOrdered By: Dr. Delgado on 08-08-2022 Miscellaneous Test See comment [facility] Comment on above: TEST RESULT LIMITSBC R-ABL1, CML/ALL, PCR, Quant e13a2 (b2a2) transcript 0.0840 % e14a2 (b3a2) transcript % <0.0032 % e1a2 transcript % <0.0032 %Interpretation: Positive POSITIVE for the BCR-ABL1 e13a2 (b2a2, p210) fusion transcript.Director Arlene Mckeon, PhD, FACMGDirector, Molecular OncologyLabco [facility] for [facility] Biology and PathologyCedar [place]uffs, [place] [phone] assay can detect three different types of [...] developed and its performance characteristics determined by [employer]. It has not been cleared or approved by the Food and Drug Administration. TESTING PERFORMED AT [facility]. ORIGINAL REPORT ON FILE IN LAB CONTAINS ADDITIONAL TEST SITE INFORMATION. Blood Glucose , Office ([phone])Ordered By: Juanito Wells on 06-28-2022 Glucose Glucometer (BldC) [Moles/Vol] 91 1 Normal [facility]; [facility] Work Phone: HgA1C , Office ([phone])Ordere d By: Juanito Wells on 06-28-2022 HbA1c (Bld) [Mass fraction] 6.3 % Normal 4.6 - 7.1 [facility]; [facility] Work Phone: No Panel InformationOrdered By: Dr. Delgado on 06-20-2022 Miscellaneous Test See comment [facility] Comment on above: TEST RESULT LIMITSBC R-ABL1, CML/ALL, PCR, Oxqtio48i9 (b2a2) transcript 0.1436 %e14a2 (b3a2) transcript % <0.0032 %e1a2 transcript % <0.0032 %Interpretation: Positive POSITIVE for the BCR-ABL1 e13a2 (b2a2, p210) fusion transcript.Director Arlene Mckeon, PhD, FACMGDirector, Molecular OncologyLabco [facility] Biology and PathologyCedar [place]uffs, [place] [phone] assay can detect three different types of [...] developed and its performance characteristics determined by [employer]. It has not been cleared or approved by the Food and Drug Administration. TESTING PERFORMED AT [facility]. ORIGINAL REPORT ON FILE IN LAB CONTAINS ADDITIONAL TEST SITE INFORMATION. Anaerobic cultureOrdered By: Dr. Kent on 06-12-2022 Bacteria identified Anaer cx Nom (Unsp spec) No growth in 5 days. [facility] Bacterial body fluid culture Ordered By: Dr. Kent on 06-08-2022 Bacteria identified Cx Nom (Body fld) No growth aerobically. [facility] - Microbiology an d Antimicrobial susceptibilityOrdered By: Dr. Kent on 06-08-2022 Bacteria identified Cx Nom (Bld) No growth in [address] [facility] [address] HEAD OR BRAIN WITHOUT CON [...] SatJun 05, 2022 6:33:39 PM EST Normal [facility] Comment on above: Order Comment: [...] on SatJun 05, 2022 6:30:[address] [facility] Comment on above: Order Comment: Injur [...] on SatJun 05, 2022 6:25:[address] [facility] Comment on above: Order Comment: Injur [...] on eltr ombopag therapy, use of Dimension [place] TBIL is not recommended. Protein [Mass/Vol] 7.8 g/dL 6.4-8.2 [facility] Body fluid appearanceOrdered By: Dr. Kent on 06-04-2022 Appearance (Body fld) SL CLDY [facility] Body fluid color determinati onOrdered By: Dr. Kent on 06-04-2022 Color (Body fld) YELLOW [facility] Body fluid lactate dehydroge nase measurement (enzymatic activity/volume) by pyruvateOrdered By: Dr. Kent on 06-04-2022 LDH Pyruvate to lactate reaction (Body fld) [Catalytic activity/Vol] 136 Units/l Not Establ. [facility] Body fluid leukocytes count (number/volume)Ordered By: Dr. Kent on 06-04-2022 WBC (Body fld) [#/Vol] 7.217 10*3/uL [facility] WBC (Body fld) [#/Vol] 0.042 10*3/uL [facility] Body fluid lymphocytes/100 l eukocytesOrdered By: Dr. Kent on 06-04-2022 Lymphocytes/100 WBC (Body fld) 88 % [facility] Body fluid macrophage countO rdered By: Dr. Kent on 06-04-2022 Macrophages (Body fld) [#/Vol] 5 % [facility] Body fluid mesothelial cell percentageOrdered By: Dr. Kent on 06-04-2022 Mesothelial cells/100 WBC (Body fld) 6 % [facility] Body fluid protein measureme nt (mass/volume)Ordered By: Dr. Kent on 06-04-2022 Protein (Body fld) [Mass/Vol] 4.4 g/dL Not Establ. [facility] Body fluid segmented neutrop hils count (number/volume)Ordered By: Dr. Kent on 06-04-2022 Segmented neutrophils (Body fld) [#/Vol] 0 % [facility] Cytology report of Body flui d Cyto stainOrdered By: Dr. Kent on 06-04-2022 Cytology report Cyto stain Doc (Body fld) SEE PATHOLOGY REPORT [facility] Comment on above: Specimen submitted t o Anatomical Pathology Department for testing. Direct bilirubinOrdered By: Dr. Kent on 06-04-2022 Bilirubin.direct [Mass/Vol] 0.08 mg/dL 0.00-0.30 [facility] Erythrocytes [#/volume] in B john fluid by Automated countOrdered By: Dr. Kent on 06-04-2022 RBC Auto (Body fld) [#/Vol] 0.003 10^6/ul [facility] Gram stain for investigation of transfusion reactionOrdered By: Dr. Kent on 06-04-2022 Microscopic observation Gram stain Nom (Unsp spec) [facility] - Chemistry and C hemistry - challengeOrdered By: Dr. Kent on 06-04-2022 ALP [Catalytic activity/Vol] 76 U/L 45-117 [facility] ALT [Catalytic activity/Vol] 27 U/L 16-61 [facility] Globulin (S) [Mass/Vol] 3.9 g/dL 2.2-4.2 [facility] Mononuclear cells Auto (Body fld) [#/Vol]Ordered By: Dr. Kent on 06-04-2022 Mononuclear cells (Body fld) [#/Vol] 7.175 10*3/uL [facility] No Panel InformationOrdered By: Dr. Kent on 06-04-2022 Body Fluid Comment 2 SEE COMMENT [facility] Comment on above: .INTERPRETATION OF R ESULTS: Differentiation of transudate and exudate fluid: TRANSUDATE EXUDATE Color- Clear,straw colored Clear,turbid,bloody,purulent RBCs- Usually none to few Often present in high numbers WBCs- Usually none to few Often present in high numbers DIFF Few lymphocytes or Lymphocytes, neutrophils, andCount- mesothelial cells. polymorphonuclear cells . Body Fluid Mononuclear WBCs (%) 99.4 % [facility] Body Fluid Pathologist Comment Reviewed [facility] Comment on above: Previous reported re sult: May follow Edited by: YELENA on 06/05/22:1459Consistent with lympocytic effusion.Negative for malignant cells.Please also refer to cytology report [id number] Tinoco M.D. 06/05/22 AMENDED REPORT 06/05/22 1459 PATH COMM/BF previously reported as: May follow Body Fluid Polynuclear WBCs (%) 0.6 % [facility] No Panel Informationon 06-04 Body Fluid Pathologist Comment May follow [facility] Work Phone: Serum or plasma albumin mary urement (mass/volume)Ordered By: Dr. Kent on 06-04-2022 Albumin [Mass/Vol] 3.9 g/dL 3.2-5.0 [facility] Specimen source identificati on of body fluidOrdered By: Dr. Kent on 06-04-2022 Specimen source Nom (Body fld) THORACENTESIS [facility] Thin prep Papanicolaou smear with manual screeningOrdered By: Dr. Kent on 06-04-2022 Thin prep Papanicolaou smear with manual screening 1 % [facility] Thin prep Papanicolaou smear with manual screening 28 U/L 15-37 [facility] Comment on above: Slight Hemolysis, Re sult may be falsely increased. Thin prep Papanicolaou smear with manual screening 242 U/L 87-241 [facility] Comment on above: Slight Hemolysis, Re sult may be falsely increased. Total cell countOrdered By: Dr. Kent on 06-04-2022 Cells counted [employer] (Bld/Tiss) [#] 7.388 10^3/ul [facility] Comment on above: This is the Total Nu mber of Nucleated Cell Types in the Body Fluid. Absolute lymphocyte countOrd ered By: Dr. Kent on 06-03-2022 Lymphocytes Auto (Unsp spec) [#/Vol] 1.00 10*3/uL 0.83-4.51 [facility] Basophil percentageOrdered B y: Dr. Kent on 06-03-2022 Basophil percentage 0 SEEN /hpf 0-5 [facility] Basophils/100 WBC (Bld) 0.7 % 0-1 [facility] Chloride [Moles/Vol] 105 mmol/L 98-107 [facility] Eosinophils/100 WBC (Bld) 4.5 % 0-5 [facility] Glucose [Mass/Vol] 110 mg/dL 74-106 [facility] Comment on above: Fasting Glucose resu lt from 100 to 125 mg/dL suggests IMPAIRED HOMEOSTASIS per A.D.A. criteria. Lactate [Moles/Vol] 1.3 mmol/L 0.4-2.0 [facility] Neutrophils (Bld) [#/Vol] 5.2 10*3/uL 2.0-7.7 [facility] Neutrophils/100 WBC (Bld) 70.8 % 47-70 [facility] Potassium [Moles/Vol] 4.3 mmol/L 3.5-5.1 [facility] Sodium [Moles/Vol] 139 mmol/L 136-145 [facility] WBC (Bld) [#/Vol] 7.3 10*3/uL 4.4-11.0 [facility] Bilirubin Test strip Ql (U)O rdered By: Dr. Kent on 06-03-2022 Bilirubin Ql (U) Negative Negative [facility] Blood erythrocytes count (nu mber/volume)Ordered By: Dr. Kent on 06-03-2022 RBC (Bld) [#/Vol] 5.06 10*6/uL 4.6-6.2 [facility] Blood hemoglobin measurement (mass/volume)Ordered By: Dr. Kent on 06-03-2022 Hemoglobin (Bld) [Mass/Vol] 15.5 g/dL 13.0-16.5 [facility] Blood lymphocytes/100 leukoc ytesOrdered By: Dr. Kent on 06-03-2022 Lymphocytes/100 WBC (Bld) 13.6 % 19-41 [facility] Blood monocytes/100 leukocyt esOrdered By: Dr. Kent on 06-03-2022 Monocytes/100 WBC (Bld) 10.1 % 0-10 [facility] Blood platelet mean volumeOr dered By: Dr. Kent on 06-03-2022 Platelet mean volume (Bld) [Entitic vol] 9.6 fL 6.2-12.0 [facility] Determination of erythrocyte mean corpuscular volume (MCV)Ordered By: Dr. Kent on 06-03-2022 MCV (RBC) [Entitic vol] 92.3 fL 80-94 [facility] Hematocrit Auto (Bld) [Volum e fraction]Ordered By: Dr. Kent on 06-03-2022 Hematocrit (Bld) [Volume fraction] 46.7 % 40-54 [facility] Influenza virus A and B and SARS-CoV-2 (COVID-19) Ag panel - Upper respiratory specimOrdered By: Dr. Kent on 06-03-2022 SARS-CoV-2 (COVID-19) RNA CRAIG+probe Ql (Resp) [facility] Ketones Test strip Ql (U)Ord ered By: Dr. Kent on 06-03-2022 Ketones Ql (U) Negative Negative [facility] Laboratory - Chemistry and C hemistry - challengeOrdered By: Dr. Kent on 06-03-2022 CO2 [Moles/Vol] 27.0 mmol/L 21.0-32.0 [facility] Natriuretic peptide B (Bld) [Mass/Vol] 38.5 pg/mL 0-100 [facility] Urea nitrogen/Creatinine [Mass ratio] 12.9 mg/mg 10-20 [facility] Laboratory - Hematology and Cell countsOrdered By: Dr. Kent on 06-03-2022 Erythrocyte distribution width (RBC) [Entitic vol] 45.1 fL 35.1-43.9 [facility] Erythrocyte distribution width (RBC) [Ratio] 13.3 % 11.6-14.6 [facility] Immature granulocytes/100 WBC (Bld) 0.300 % 0.0-0.9 [facility] Comment on above: IG% - Immature Granu locytes (promyelocytes, myelocytes and metamyelocytes) > 1% indicates that a LEFT SHIFT is Present. MCH (RBC) [Entitic mass] 30.6 pg 27.0-32.0 [facility] Nucleated RBC/100 WBC (Bld) [Ratio] 0 % 0-5 [facility] MCHC Auto (RBC) [Mass/Vol]Or dered By: Dr. Kent on 06-03-2022 MCHC (RBC) [Mass/Vol] 33.2 g/dL 32-36 [facility] Mucus LM Ql (Urine sed)Order ed By: Dr. Kent on 06-03-2022 Mucus Ql (Urine sed) 0 SEEN /hpf [facility] Nitrite Test strip Ql (U)Ord ered By: Dr. Kent on 06-03-2022 Nitrite Ql (U) Negative Negative [facility] No Panel InformationOrdered By: Dr. Kent on 06-03-2022 Estimated Creatinine Clearance Calc 121.63 ml/min [facility] Estimated GFR (MDRD) Amer 148 mL/min >60 [facility] Comment on above: GFR Calc Estimated GFR (MDRD) Non-Af Amer 122 mL/min >60 [facility] Comment on above: Non- GFR Calc Troponin I High Sensitivity < 3 pg/mL 3.0-78.0 [facility] Comment on above: Please Note: New Keshia t Units and Gender Specific Reference Ranges. For more information see Policy Stat Procedure [place] High Sensitivity Troponin (TNIH) and attachments. Platelets bldOrdered By: Dr. Kent on 06-03-2022 Platelets (Bld) [#/Vol] 251 10*3/uL 150-450 [facility] Protein Test strip Ql (U)Ord ered By: Dr. Kent on 06-03-2022 Protein Ql (U) 15 mg/dl Negative [facility] Serum or plasma calcium mary urement (mass/volume)Ordered By: Dr. Kent on 06-03-2022 Calcium [Mass/Vol] 9.2 mg/dL 8.5-10.1 [facility] Serum or plasma creatinine m easurement (mass/volume)Ordered By: Dr. Kent on 06-03-2022 Creatinine [Mass/Vol] 0.70 mg/dL 0.70-1.30 [facility] Comment on above: The validity of the calculated GFR & GFRAA in patients over 70 years has not been determined. Clinical correlation is essential. Serum or plasma urea nitroge n measurement (mass/volume)Ordered By: Dr. Kent on 06-03-2022 Urea nitrogen [Mass/Vol] 9 mg/dL 7-18 [facility] Squamous epithelial cells de tection in urine sediment by light microscopyOrdered By: Dr. Kent on 06-03-2022 Epithelial cells.squamous LM Ql (Urine sed) 0 SEEN /hpf 0-5 [facility] Thin prep Papanicolaou smear with manual screeningOrdered By: Dr. Kent on 11-13-2022 Thin prep Papanicolaou smear with manual screening 7 5-15 [facility] Urine blood detectionOrdered By: Dr. Kent on 06-03-2022 RBC Ql (U) Negative Negative [facility] RBC Ql (U) 0 SEEN /hpf 0-5 [facility] Urine clarityOrdered By: Dr. Kent on 06-03-2022 Clarity (U) Clear Clear [facility] Urine color determinationOrd ered By: Dr. Kent on 06-03-2022 Color (U) Yellow Yellow [facility] Urine glucose detectionOrder ed By: Dr. Kent on 06-03-2022 Glucose Ql (U) Normal mg/dl Normal [facility] Urine leukocyte esterase det ection by dipstickOrdered By: Dr. Kent on 06-03-2022 Leukocyte esterase Test strip Ql (U) Negative Negative [facility] Urine pHOrdered By: Dr. Cathy castañeda on 06-03-2022 pH (U) 7.0 [pH] 5.0 - 8.0 [facility] Urine sediment bacteria coun t by microscopy (number/high power field)Ordered By: Dr. Kent on 06-03-2022 Bacteria LM.HPF (Urine sed) [#/Area] 0 /[HPF] None Seen [facility] Urine specific gravity measu rementOrdered By: Dr. Kent on 06-03-2022 Specific gravity (U) [Rel density] 1.010 1.002-1.03 0 [facility] Urobilinogen Auto test strip Ql (U)Ordered By: Dr. Kent on 06-03-2022 Urobilinogen Ql (U) Normal mg/dl Normal [facility] Absolute lymphocyte counton 03-22-2022 Lymphocytes Auto (Unsp spec) [#/Vol] 1.49 10*3/uL 0.83-4.51 [facility] Work Phone: Basophil percentageon 2021 Basophils/100 WBC (Bld) 0.9 % 0-1 [facility] Work Phone: Bilirubin [Mass/Vol] 0.50 mg/dL 0.20-1.00 [facility] Work Phone: Comment on above: For patients on eltr ombopag therapy, use of Dimension [place] TBIL is not recommended. Chloride [Moles/Vol] 106 mmol/L 98-107 [facility] Work Phone: Eosinophils/100 WBC (Bld) 6.5 % 0-5 [facility] Work Phone: Glucose [Mass/Vol] 110 mg/dL 74-106 [facility] Work Phone: Comment on above: Fasting Glucose resu lt from 100 to 125 mg/dL suggests IMPAIRED HOMEOSTASIS per A.D.A. criteria. Neutrophils (Bld) [#/Vol] 3.1 10*3/uL 2.0-7.7 [facility] Work Phone: Neutrophils/100 WBC (Bld) 56.6 % 47-70 [facility] Work Phone: Potassium [Moles/Vol] 3.9 mmol/L 3.5-5.1 [facility] Work Phone: Protein [Mass/Vol] 7.5 g/dL 6.4-8.2 [facility] Work Phone: Sodium [Moles/Vol] 138 mmol/L 136-145 [facility] Work Phone: WBC (Bld) [#/Vol] 5.5 10*3/uL 4.4-11.0 [facility] Work Phone: Blood erythrocytes count (nu mber/volume)on 03-22-2022 RBC (Bld) [#/Vol] 4.68 10*6/uL 4.6-6.2 [facility] Work Phone: Blood hemoglobin measurement (mass/volume)on 03-22-2022 Hemoglobin (Bld) [Mass/Vol] 14.4 g/dL 13.0-16.5 [facility] Work Phone: Blood lymphocytes/100 leukoc yteson 03-22-2022 Lymphocytes/100 WBC (Bld) 27.1 % 19-41 [facility] Work Phone: Blood monocytes/100 leukocyt eson 03-22-2022 Monocytes/100 WBC (Bld) 8.7 % 0-10 [facility] Work Phone: Blood platelet mean volumeon 03-22-2022 Platelet mean volume (Bld) [Entitic vol] 9.3 fL 6.2-12.0 [facility] Work Phone: Determination of erythrocyte mean corpuscular volume (MCV)on 03-22-2022 MCV (RBC) [Entitic vol] 93.2 fL 80-94 [facility] Work Phone: Hematocrit Auto (Bld) [Volum e fraction]on 03-22-2022 Hematocrit (Bld) [Volume fraction] 43.6 % 40-54 [facility] Work Phone: Laboratory - Chemistry and C hemistry - challengeon 03-22-2022 ALP [Catalytic activity/Vol] 63 U/L 45-117 [facility] Work Phone: ALT [Catalytic activity/Vol] 36 U/L 16-61 [facility] Work Phone: CO2 [Moles/Vol] 26.0 mmol/L 21.0-32.0 [facility] Work Phone: Globulin (S) [Mass/Vol] 3.7 g/dL 2.2-4.2 [facility] Work Phone: Urea nitrogen/Creatinine [Mass ratio] 13.3 mg/mg 10-20 [facility] Work Phone: Laboratory - Hematology and Cell countson 03-22-2022 Erythrocyte distribution width (RBC) [Entitic vol] 46.8 fL 35.1-43.9 [facility] Work Phone: Erythrocyte distribution width (RBC) [Ratio] 13.7 % 11.6-14.6 [facility] Work Phone: Immature granulocytes/100 WBC (Bld) 0.200 % 0.0-0.9 [facility] Work Phone: Comment on above: IG% - Immature Granu locytes (promyelocytes, myelocytes and metamyelocytes) > 1% indicates that a LEFT SHIFT is Present. MCH (RBC) [Entitic mass] 30.8 pg 27.0-32.0 [facility] Work Phone: Nucleated RBC/100 WBC (Bld) [Ratio] 0 % 0-5 [facility] Work Phone: MCHC Auto (RBC) [Mass/Vol]on 03-22-2022 MCHC (RBC) [Mass/Vol] 33.0 g/dL 32-36 [facility] Work Phone: No Panel Informationon 03-22 Estimated Creatinine Clearance Calc 102.58 ml/min [facility] Work Phone: Estimated GFR (MDRD) Amer 121 mL/min >60 [facility] Work Phone: Comment on above: GFR Calc Estimated GFR (MDRD) Non-Af Amer 100 mL/min >60 [facility] Work Phone: Comment on above: Non- GFR Calc Miscellaneous Test See comment [facility] Work Phone: Comment on above: TEST RESULT LIMITSBCR-ABL1, CML/ALL, PCR, Fonkuh32u3 (b2a2) transcript 0.0561 %e14a2 (b3a2) transcript % <0.0032 %e1a2 transcript % <0.0032 %Interpretation: PositivePOSITIVE for the BCR-ABL1 e13a2 (b2a2, p210) fusion transcript.Director Arlene Mckeon, PhD, FACMGDirector, Molecular OncologyLabcorp Center for Molecular Biology and PathologyCedar Bluffs, [place] [phone] assay can detect three different types of [...] developed and its performance characteristics determined by [facility]. It has not been cleared or approved by the Food and Drug Administration. TESTING PERFORMED AT [facility]. ORIGINAL REPORT ON FILE IN LAB CONTAINS ADDITIONAL TEST SITE INFORMATION. Platelets bldon 03-22-2022 Platelets (Bld) [#/Vol] 247 10*3/uL 150-450 [facility] Work Phone: Serum or plasma albumin mary urement (mass/volume)on 03-22-2022 Albumin [Mass/Vol] 3.8 g/dL 3.2-5.0 [facility] Work Phone: Serum or plasma albumin/glob ulin mass ratioon 03-22-2022 Albumin/Globulin [Mass ratio] 1.0 {ratio} 0.9-2.4 [facility] Work Phone: Serum or plasma calcium mary urement (mass/volume)on 03-22-2022 Calcium [Mass/Vol] 8.5 mg/dL 8.5-10.1 [facility] Work Phone: Serum or plasma creatinine m easurement (mass/volume)on 03-22-2022 Creatinine [Mass/Vol] 0.83 mg/dL 0.70-1.30 [facility] Work Phone: Comment on above: The validity of the calculated GFR & GFRAA in patients over 70 years has not been determined. Clinical correlation is essential. Serum or plasma urea nitroge n measurement (mass/volume)on 03-22-2022 Urea nitrogen [Mass/Vol] 11 mg/dL 7-18 [facility] Work Phone: Thin prep Papanicolaou smear with manual screeningon 03-22-2022 Thin prep Papanicolaou smear with manual screening 24 U/L 15-37 [facility] Work Phone: Thin prep Papanicolaou smear with manual screening 6 5-15 [facility] Work Phone: Blood Glucose , Office ([phone])Ordered By: Eufemia Patel on 03-05-2022 Glucose Glucometer (BldC) [Moles/Vol] 136 1 Normal [facility]; [facility] Work Phone: CBC W/AUTO DIFF WBC ([id number])O rdered By: Machine Operator on 03-05-2022 Basophils (Bld) [#/Vol] 0.1 10*3/uL Normal 0.0-0.2 [facility]; [facility] Work Phone: Comment on above: PATIENT WAS FASTINGP ERFORMED BY: CB [facility] [id number] [facility] [id number] Basophils/100 WBC (Bld) 1 % Normal C [facility]rehens[facility]; [facility] Work Phone: Comment on above: PATIENT WAS FASTINGP ERFORMED BY: CB [facility] Ghcsuw3227 [facility] [id number] Eosinophils (Bld) [#/Vol] 0.4 10*3/uL Normal 0.0-0.4 [facility]; [facility] Work Phone: Comment on above: PATIENT WAS FASTINGP ERFORMED BY: TONYA [facility] Bmypnb2237 [address]Dublin [place] [id number] Eosinophils/100 WBC (Bld) 6 % Normal [facility]; [facility] Work Phone: Comment on above: PATIENT WAS FASTINGP ERFORMED BY: CB [facility] Tmzvzo4830 [address]blin [place] [id number] Erythrocyte distribution width (RBC) [Ratio] 13.3 % Normal 11.6-15.4 [facility]; [facility] Work Phone: Comment on above: PATIENT WAS FASTINGP ERFORMED BY: CB [facility] Voqmdk9878 [address] Roadblin [place] [id number] Hematocrit (Bld) [Volume fraction] 43.6 % Normal 37.5-51.0 [facility]; [facility] Work Phone: Comment on above: PATIENT WAS FASTINGP ERFORMED BY: CB [facility] Efwoao8[address]Dublin [place] [id number] Hemoglobin (Bld) [Mass/Vol] 14.9 g/dL Normal 13.0-17.7 [facility]; [facility] Work Phone: Comment on above: PATIENT WAS FASTINGP ERFORMED BY: CB [facility] Fatmca0071 [address]Dublin [place] [id number] Immature granulocytes (Bld) [#/Vol] 0.0 10*3/uL Normal 0.0-0.1 [facility]; [facility] Work Phone: Comment on above: PATIENT WAS FASTINGP ERFORMED BY: CB [facility] Bnnfzp0938 [address]Dublin [place] [id number] Immature granulocytes/100 WBC (Bld) 0 % Normal [facility]; [facility] Work Phone: Comment on above: PATIENT WAS FASTINGP ERFORMED BY: CB [facility] Rjfhkk5287 [address]Dublin [place] [id number] Lymphocytes (Bld) [#/Vol] 1.5 10*3/uL Normal 0.7-3.1 [facility]; [facility] Work Phone: Comment on above: PATIENT WAS FASTINGP ERFORMED BY: TONYA Labcoaida TorresClwezg2251 [address]Dublin [place] [id number] Lymphocytes/100 WBC (Bld) 24 % Normal [facility]; [facility] Work Phone: Comment on above: PATIENT WAS FASTINGP ERFORMED BY: TONYA [facility] Dynims3348 [address] [place] [id number] MCH (RBC) [Entitic mass] 30.8 pg Normal 26.6-33.0 [facility]; [facility] Work Phone: Comment on above: PATIENT WAS FASTINGP ERFORMED BY: TONYA Labcoaida Rcsqos6190 [address]Dublin [place] [id number] MCHC (RBC) [Mass/Vol] 34.2 g/dL Normal 31.5-35.7 [facility]; [facility] Work Phone: Comment on above: PATIENT WAS FASTINGP ERFORMED BY: TONYA Labcoaida Pdfuah7207 [address]Dublin [place] [id number] MCV (RBC) [Entitic vol] 90 fL Normal 79-97 C [facility] centerensive [facility]; [facility] Work Phone: Comment on above: PATIENT WAS FASTINGP ERFORMED BY: TONYA [facility] Cltiqd5646 [address]Dublin [place] [id number] Monocytes (Bld) [#/Vol] 0.6 10*3/uL Normal 0.1-0.9 [facility]; [facility] Work Phone: Comment on above: PATIENT WAS FASTINGP ERFORMED BY: TONYA [facility] Jenvbe4069 [address]Dublin [place] [id number] Monocytes/100 WBC (Bld) 9 % Normal [facility]; [facility] Work Phone: Comment on above: PATIENT WAS FASTINGP ERFORMED BY: TONYA [facility] Gyafsk7631 [address]Dublin [place] [id number] Neutrophils (Bld) [#/Vol] 3.8 10*3/uL Normal 1.4-7.0 [facility]; [facility] Work Phone: Comment on above: PATIENT WAS FASTINGP ERFORMED BY: TONYA Labcoaida TorresDvumnt6627 [address]blin [place] [id number] Neutrophils/100 WBC (Bld) 60 % Normal [facility]; [facility] Work Phone: Comment on above: PATIENT WAS FASTINGP ERFORMED BY: [facility] Homlij9090 [address]bl[address] [place] [id number] Platelets (Bld) [#/Vol] 250 10*3/uL Normal 150-450 [facility]; [facility] Work Phone: Comment on above: PATIENT WAS FASTINGP ERFORMED BY: TONYA [facility] Likztu9003 [address]bl[address] [place] [id number] RBC (Bld) [#/Vol] 4.84 10*6/uL Normal 4.14-5.80 [facility]; [facility] Work Phone: Comment on above: PATIENT WAS FASTINGP ERFORMED BY: TONYA [facility] Dqolez8766 [address] RoadDublin [place] [id number] WBC (Bld) [#/Vol] 6.4 10*3/uL Normal 3.4-10.8 [facility]; [facility] Work Phone: Comment on above: PATIENT WAS FASTINGP ERFORMED BY: [facility] Iybkiw3779 [facility]in [place] [id number] HgA1C , Office ([id number])Ordere d By: Eufemia Patel on 03-05-2022 HbA1c (Bld) [Mass fraction] 6.3 % Normal 4.6 - 7.1 [facility]; [facility] Work Phone: LIPID PANEL ([id number])Ordered B y: Machine Operator on 03-05-2022 Cholesterol [Mass/Vol] 170 mg/dL Normal 100-199 [facility]; [facility] Work Phone: Comment on above: PATIENT WAS FASTINGP ERFORMED BY: TONYA [facility] Chtbed1324 [address]Dublin [place] [id number] Cholesterol in HDL [Mass/Vol] 45 mg/dL Normal [facility]; [facility] Work Phone: Comment on above: PATIENT WAS FASTINGP ERFORMED BY: TONYA [facility] Xmkygm1338 [address]Dublin [place] [id number] Triglyceride [Mass/Vol] 250 mg/dL Abnormal 0-149 [facility]; [facility] Work Phone: Comment on above: PATIENT WAS FASTINGP ERFORMED BY: TONYA [facility] Onauzl5751 [address] RoadDublin [place] [id number] LIPID PANEL (19180) 41 mg/dL Abnormal 5-40 Compr ens[facility]; [facility] Work Phone: Comment on above: PATIENT WAS FASTINGP ERFORMED BY: TONYA Labcoaida Sgghrw6092 [address]Dublin [place] [id number] LIPID PANEL (19066) 84 mg/dL Normal 0-99 Compr [facility]; [facility] Work Phone: Comment on above: PATIENT WAS FASTINGP ERFORMED BY: TONYA [facility] Rwyfex4910 [address]Dublin [place] [id number] LIPID PANEL (46492) 1.9 {ratio} Normal 0.0-3.[address] [facility]; [facility] Work Phone: Comment on above: LDL/HDL Ratio Men Wo men 1/2 Avg.Risk 1.0 1.5 Avg.Risk 3.6 3.2 2X Avg.Risk 6.2 5.0 3X Avg.Risk 8.0 6.1 PATIENT WAS FASTINGP ERFORMED BY: TONYA [facility] Lvpjnd7156 [address]Dublin [place] [id number] METABOLIC PANEL, COMPREHENSI VE (22230)Ordered By: Machine Operator on 03-05-2022 Albumin [Mass/Vol] 4.6 g/dL Normal 3.8-4.8 Compre [facility]; [facility] Work Phone: Comment on above: PATIENT WAS FASTINGP ERFORMED BY: TONYA Labcoaida Nssfdd7647 [address]Dublin [place] [id number] Albumin/Globulin [Mass ratio] 1.9 {ratio} Normal 1.2-2.2 [facility]; [facility] Work Phone: Comment on above: PATIENT WAS FASTINGP ERFORMED BY: TONYA Davidsonlin6370 [address]Dublin [place] [id number] ALP [Catalytic activity/Vol] 68 U/L Normal 44-121 [facility]; [facility] Work Phone: Comment on above: PATIENT WAS FASTINGP ERFORMED BY: TONYA Labcoaida DavidsonZyemas0007 [address] RoadDublin [place] [id number] ALT [Catalytic activity/Vol] 22 U/L Normal 0-44 [facility]; [facility] Work Phone: Comment on above: PATIENT WAS FASTINGP ERFORMED BY: TONYA Davidsonlin6370 [address] [place] [id number] AST [Catalytic activity/Vol] 21 U/L Normal 0-40 [facility]; [facility] Work Phone: Comment on above: PATIENT WAS FASTINGP ERFORMED BY: TONYA Torres6370 [address] [place] [id number] Bilirubin [Mass/Vol] 0.3 mg/dL Normal 0.0-1.2 [facility] rehensive Internal Medicine; [facility] Work Phone: Comment on above: PATIENT WAS FASTINGP ERFORMED BY: TONYA Labjoya Fovhxp8413 [address] RoadDublin [place] [id number] Calcium [Mass/Vol] 9.4 mg/dL Normal 8.6-10.2 [facility]; [facility] Work Phone: Comment on above: PATIENT WAS FASTINGP ERFORMED BY: TONYA Labcoaida Wiunie3855 [address] RoadDublin [place] [id number] Chloride [Moles/Vol] 102 mmol/L Normal 96-106 Comp rehensive [facility]; [facility] Work Phone: Comment on above: PATIENT WAS FASTINGP ERFORMED BY: TONYA [facility] Hcgpdz3081 [address] RoadDublin [place] [id number] CO2 [Moles/Vol] 24 mmol/L Normal 20-29 [facility]; [facility] Work Phone: Comment on above: PATIENT WAS FASTINGP ERFORMED BY: CB [facility] Yfokse0091 [address]Dublin [place] [id number] Creatinine [Mass/Vol] 0.79 mg/dL Normal 0.76-1.27 [facility] prehensive Internal Medicine; [facility] Work Phone: Comment on above: PATIENT WAS FASTINGP ERFORMED BY: TONYA [facility] Wbvvix1820 [address] [place] [id number] GFR/1.73 sq M.predicted among non-blacks MDRD (S/P/Bld) [Vol rate/Area] 101 mL/min/{1.73_m2} Normal [facility]; [facility] Work Phone: Comment on above: PATIENT WAS FASTINGP ERFORMED BY: TONYA [facility] Zzrvqg1962 [address] [place] [id number] Globulin (S) [Mass/Vol] 2.4 g/dL Normal 1.5-4.5 [facility]erensive [facility]; [facility] Work Phone: Comment on above: PATIENT WAS FASTINGP ERFORMED BY: TONYA [facility] Gqhvsj0514 [address] RoadDublin [place] [id number] Glucose [Mass/Vol] 98 mg/dL Normal 65-99 [facility]; [facility] Work Phone: Comment on above: PATIENT WAS FASTINGP ERFORMED BY: CB [facility] Wsuhbp2761 [address]Dublin [place] [id number] Potassium [Moles/Vol] 4.4 mmol/L Normal 3.5-5.2 [facility] prehensive [facility]; [facility] Work Phone: Comment on above: PATIENT WAS FASTINGP ERFORMED BY: CB [facility] Jlkdur7380 [address]Dublin [place] [id number] Protein [Mass/Vol] 7.0 g/dL Normal 6.0-8.5 [facility]; [facility] Work Phone: Comment on above: PATIENT WAS FASTINGP ERFORMED BY: TONYA Labcoaida Shrntf1372 [address]Dublin [place] [id number] Sodium [Moles/Vol] 138 mmol/L Normal 134-144 [facility]; [facility] Work Phone: Comment on above: PATIENT WAS FASTINGP ERFORMED BY: TONYA [facility] Isjdkx1493 [address]Dublin [place] [id number] Urea nitrogen [Mass/Vol] 12 mg/dL Normal 8-27 [facility]; [facility] Work Phone: Comment on above: PATIENT WAS FASTINGP ERFORMED BY: TONYA [facility] Jmoodw4524 [address]Dublin [place] [id number] Urea nitrogen/Creatinine [Mass ratio] 15 mg/mg Normal 10-24 [facility]; [facility] Work Phone: Comment on above: PATIENT WAS FASTINGP ERFORMED BY: TONYA [facility] Ufpxrb7559 [address]Dublin [place] [id number] METABOLIC PANEL, COMPREHENSIVE ([id number]) 101 mL/min/1.73 Normal [facility]; [facility] Work Phone: MICROALBUMINOrdered By: Syst em Headend Technician on 03-05-2022 Albumin DL <= 20 mg/L (U) [Mass/Vol] 14.4 ug/mL Normal [facility]; [facility] Work Phone: Comment on above: PATIENT WAS FASTINGP ERFORMED BY: CB [facility] Ammohx6748 [address]Dublin [place] [id number] Albumin/Creatinine (U) [Mass ratio] 14 {mg/g_creat} Normal 0-29 [facility]; [facility] Work Phone: Comment on above: Normal: 0 - 29 Moder ately increased: 30 - 300 Severely increased: >300 PATIENT WAS FASTINGP ERFORMED BY: CB [facility] Ssjjcc8743 [address]Dublin [place] [id number] Creatinine (U) [Mass/Vol] 104.7 mg/dL Normal [facility]; [facility] Work Phone: Comment on above: PATIENT WAS FASTINGP ERFORMED BY: TONYA Avniaida DavidsonQsdnut[address] [facility] [id number] TSH ([id number])Ordered By: [employer] m Headend Technician on 03-05-2022 TSH Qn 3.300 {uIU/mL} Normal 0.450-4.50 0 [facility]; [facility] Work Phone: Comment on above: PATIENT WAS FASTINGP ERFORMED BY: TONYA Torres[address] [facility] [id number] URINALYSIS, W/ MICRO ([id number]) Ordered By: Machine Operator on 03-05-2022 Appearance (U) Clear Normal Comprehens arianna [facility]; [facility] Work Phone: Comment on above: PATIENT WAS FASTINGP ERFORMED BY: TONYA Davidsonlin[address] [facility] [id number] Bilirubin Ql (U) Negative Normal Comprehe nsive Internal Medicine; [facility] Work Phone: Comment on above: PATIENT WAS FASTINGP ERFORMED BY: TONYA Davidsonlin[address] [facility]as [facility] [id number] Color (U) Yellow Normal [facility]; [facility] Work Phone: Comment on above: PATIENT WAS FASTINGP ERFORMED BY: TONYA Torres[address] [facility] [id number] Glucose Ql (U) Negative Normal Comprehens arianna [facility] Medicine; [facility] Work Phone: Comment on above: PATIENT WAS FASTINGP ERFORMED BY: TONYA Kenyajuliana DavidsonWeuvfb6491 [address] [facility] [id number] Hemoglobin Ql (U) Negative Normal Compreh ensive Internal Medicine; [facility] Work Phone: Comment on above: PATIENT WAS FASTINGP ERFORMED BY: TONYA Davidsonlin[address] [facility] [id number] Ketones Ql (U) Negative Normal Comprehens arianna [facility]; [facility] Work Phone: Comment on above: PATIENT WAS FASTINGP ERFORMED BY: TONYA Richi Fgabet[address] [facility] [place] [id number] Leukocyte esterase Test strip Ql (U) Negative Normal [facility]; [facility] Work Phone: Comment on above: PATIENT WAS FASTINGP ERFORMED BY: TONYA Labcoaida aDvidsonBxgdrw[address] [facility] [place] [id number] Microscopic observation LM Nom (Urine sed) MICRON Normal [facility]; [facility] Work Phone: Comment on above: Microscopic follows if indicated. PATIENT WAS FASTINGP ERFORMED BY: TONYA Avniaida Dbxogx[address] [facility] [place] [id number] Microscopic observation LM Nom (Urine sed) See below: Normal [facility]; [facility] Work Phone: Comment on above: Microscopic was lynnette cated and was performed. PATIENT WAS FASTINGP ERFORMED BY: TONYA Davidsonlin[address] [facility]in [place] [id number] Nitrite Ql (U) Negative Normal Comprehens arianna [facility]; [facility] Work Phone: Comment on above: PATIENT WAS FASTINGP ERFORMED BY: TONYA Davidsonlin[address] [facility] [id number] pH (U) 7.0 [pH] Normal 5.0-7.5 [facility]; [facility] Work Phone: Comment on above: PATIENT WAS FASTINGP ERFORMED BY: TONYA Labcoaida Egrijn[address] [facility]in [place] [id number] Protein Ql (U) Negative Normal Comprehens arianna [facility]; [facility] Work Phone: Comment on above: PATIENT WAS FASTINGP ERFORMED BY: TONYA Labjuliana DavidsonNafgqw3611 [address] [facility]in [place] [id number] Specific gravity (U) [Rel density] 1.019 1 Normal 1.005-1.03 0 [facility]; [facility] Work Phone: Comment on above: PATIENT WAS FASTINGP ERFORMED BY: TONYA [facility] Rltvaj8758 [address] Roadblin [place] [id number] Urobilinogen (U) [Mass/Vol] 0.2 mg/dL Normal 0.2-1.0 [facility]; [facility] Work Phone: Comment on above: PATIENT WAS FASTINGP ERFORMED BY: TONYA [facility] Mzwoio[address] [facility] [id number] Blood Glucose , Office ([phone] 2)Ordered By: Eufemia Patel on 10-30-2021 Glucose Glucometer (BldC) [Moles/Vol] 107 1 Normal [facility]; [facility] Work Phone: HgA1C , Office ([phone])Ordere d By: Eufemia Patel on 10-30-2021 HbA1c (Bld) [Mass fraction] 6.0 % Normal 4.6 - 7.1 [facility]; [facility] Work Phone: CBC W/AUTO DIFF WBC (02575)O rdered By: Machine Operator on 06-26-2021 Basophils (Bld) [#/Vol] 0.1 10*3/uL Normal 0.0-0.2 [facility]; [facility] Work Phone: Comment on above: PATIENT WAS FASTINGP ERFORMED BY: TONYA [facility] Frdpwr[address] [facility] [place] [id number] Basophils/100 WBC (Bld) 1 % Normal C omprehensive Internal Medicine; [facility] Work Phone: Comment on above: PATIENT WAS FASTINGP ERFORMED BY: TONYA [facility] Dpwbcd4407 [address]aney RoadDuin [place] [id number] Eosinophils (Bld) [#/Vol] 0.3 10*3/uL Normal 0.0-0.4 [facility]; [facility] Work Phone: Comment on above: PATIENT WAS FASTINGP ERFORMED BY: OTNYA [facility] Cywaqi9717 [address] RoadDublin [place] [id number] Eosinophils/100 WBC (Bld) 6 % Normal [facility]; [facility] Work Phone: Comment on above: PATIENT WAS FASTINGP ERFORMED BY: TONYA Torres[address] [facility]in [place] [id number] Erythrocyte distribution width (RBC) [Ratio] 12.8 % Normal 11.6-15.4 [facility]; [facility] Work Phone: Comment on above: PATIENT WAS FASTINGP ERFORMED BY: TONYA Zambranocoaida TorresRdhozs2[address] [facility] [id number] Hematocrit (Bld) [Volume fraction] 42.6 % Normal 37.5-51.0 [facility]; [facility] Work Phone: Comment on above: PATIENT WAS FASTINGP ERFORMED BY: TONYA Davidsonlin6[address] [facility]Critical [facility] [id number] Hemoglobin (Bld) [Mass/Vol] 14.8 g/dL Normal 13.0-17.7 [facility]; [facility] Work Phone: Comment on above: PATIENT WAS FASTINGP ERFORMED BY: TONYA Holly Gzijaw4434 [address] [facility]Critical access hospital [id number] Immature granulocytes (Bld) [#/Vol] 0.0 10*3/uL Normal 0.0-0.1 [facility]; [facility] Work Phone: Comment on above: PATIENT WAS FASTINGP ERFORMED BY: TONYA Holly Vyqzuo[address]64 [address] [facility]in [place] [id number] Immature granulocytes/100 WBC (Bld) 0 % Normal [facility]; [facility] Work Phone: Comment on above: PATIENT WAS FASTINGP ERFORMED BY: TONYA [facility] Xinlfj[address] [facility] [place] [id number] Lymphocytes (Bld) [#/Vol] 1.9 10*3/uL Normal 0.7-3.1 [facility]; [facility] Work Phone: Comment on above: PATIENT WAS FASTINGP ERFORMED BY: [facility] Zdzafl1935 [address] RoadCritical access hospital [id number] Lymphocytes/100 WBC (Bld) 32 % Normal [facility]; [facility] Work Phone: Comment on above: PATIENT WAS FASTINGP ERFORMED BY: TONYA Kenyajuliana DavidsonGdvmgb7434 [facility] [id number] MCH (RBC) [Entitic mass] 31.2 pg Normal 26.6-33.0 [facility]; [facility] Work Phone: Comment on above: PATIENT WAS FASTINGP ERFORMED BY: TONYA Holly Quxmqh19[address] [facility] [id number] MCHC (RBC) [Mass/Vol] 34.7 g/dL Normal 31.5-35.7 [facility]; [facility] Work Phone: Comment on above: PATIENT WAS FASTINGP ERFORMED BY: TONYA Davidsonlin[address] [facility] [id number] MCV (RBC) [Entitic vol] 90 fL Normal 79-97 C [facility] centerensive [facility]; [facility] Work Phone: Comment on above: PATIENT WAS FASTINGP ERFORMED BY: TONYA Davidsonlin[address] [facility] [id number] Monocytes (Bld) [#/Vol] 0.6 10*3/uL Normal 0.1-0.9 [facility]; [facility] Work Phone: Comment on above: PATIENT WAS FASTINGP ERFORMED BY: TONYA HollyJersey Shore University Medical CenterEhkfqs46[address] [facility] [id number] Monocytes/100 WBC (Bld) 10 % Normal C [facility]rehens[facility]; [facility] Work Phone: Comment on above: PATIENT WAS FASTINGP ERFORMED BY: TONYA Davidsonlin[address] [facility] [id number] Neutrophils (Bld) [#/Vol] 3.0 10*3/uL Normal 1.4-7.0 [facility]; [facility] Work Phone: Comment on above: PATIENT WAS FASTINGP ERFORMED BY: TONYA Davidsonlin[address] [facility]in [place] [id number] Neutrophils/100 WBC (Bld) 51 % Normal [facility]; [facility] Work Phone: Comment on above: PATIENT WAS FASTINGP ERFORMED BY: TONYA Torres[address] [facility]in [place] [id number] Platelets (Bld) [#/Vol] 247 10*3/uL Normal 150-450 [facility]; [facility] Work Phone: Comment on above: PATIENT WAS FASTINGP ERFORMED BY: TONYA [facility] Rppbxe5[address] [facility] [place] [id number] RBC (Bld) [#/Vol] 4.74 10*6/uL Normal 4.14-5.80 [facility] Internal Medicine; [facility] Work Phone: Comment on above: PATIENT WAS FASTINGP ERFORMED BY: [facility] Qddphf6980 [facility] [id number] WBC (Bld) [#/Vol] 5.8 10*3/uL Normal 3.4-10.8 [facility] Internal Medicine; [facility] Work Phone: Comment on above: PATIENT WAS FASTINGP ERFORMED BY: TONYA Davidsonlin[address] [facility] [id number] HGB A1C (81457)Ordered By: S ystem Headend Technician on 06-26-2021 HbA1c (Bld) [Mass fraction] 6.2 % Abnormal 4.8-5.6 [facility]; [facility] Work Phone: Comment on above: . Prediabetes: 5.7 - 6.4 Diabetes: >6.4 Glycemic control for adults with diabetes: <7.0 PATIENT WAS FASTINGP ERFORMED BY: TONYA [facility] Vlrvfh5897 [facility] [id number] LIPID PANEL (38304)Ordered B y: Machine Operator on 06-26-2021 Cholesterol [Mass/Vol] 147 mg/dL Normal 100-199 Co [facility] Internal Medicine; [facility] Work Phone: Comment on above: PATIENT WAS FASTINGP ERFORMED BY: TONYA [facility] Bicbzt3778 [address] RoadDublin [place] [id number] Cholesterol in HDL [Mass/Vol] 44 mg/dL Normal [facility]; [facility] Work Phone: Comment on above: PATIENT WAS FASTINGP ERFORMED BY: TONYA [facility] Ywwacz7956 [address] RoadDublin [place] [id number] Triglyceride [Mass/Vol] 189 mg/dL Abnormal 0-149 C [facility] centerensive Internal Medicine; [facility] Work Phone: Comment on above: PATIENT WAS FASTINGP ERFORMED BY: TONYA [facility] Wckovx8231 [address] RoadDublin [place] [id number] LIPID PANEL (25897) 32 mg/dL Normal 5-40 [facility]; [facility] Work Phone: Comment on above: PATIENT WAS FASTINGP ERFORMED BY: TONYA Labcoaida Awetdh8525 [address] RoadDublin [place] [id number] LIPID PANEL (01785) 71 mg/dL Normal 0-99 [facility]; [facility] Work Phone: Comment on above: PATIENT WAS FASTINGP ERFORMED BY: TONYA [facility] Ezjkxm5228 [address] RoadDublin [place] [id number] LIPID PANEL (09093) 1.6 {ratio} Normal 0.0-3.[address] [facility]ensive [facility]; [facility] Work Phone: Comment on above: LDL/HDL Ratio Men Wo men 1/2 Avg.Risk 1.0 1.5 Avg.Risk 3.6 3.2 2X Avg.Risk 6.2 5.0 3X Avg.Risk 8.0 6.1 PATIENT WAS FASTINGP ERFORMED BY: TONYA [facility] Xwafkf8684 [address] RoadDublin [place] [id number] METABOLIC PANEL, COMPREHENSI VE (36339)Ordered By: Machine Operator on 06-26-2021 Albumin [Mass/Vol] 4.6 g/dL Normal 3.8-4.8 [facility]; [facility] Work Phone: Comment on above: PATIENT WAS FASTINGP ERFORMED BY: TONYA [facility] Nhduhg7637 [address] RoadDublin [place] [id number] Albumin/Globulin [Mass ratio] 1.8 {ratio} Normal 1.2-2.2 [facility]; [facility] Work Phone: Comment on above: PATIENT WAS FASTINGP ERFORMED BY: CB [facility] Qnoqcl0638 [address] RoadDublin [place] [id number] ALP [Catalytic activity/Vol] 62 U/L Normal 44-121 [facility]; [facility] Work Phone: Comment on above: Please note refere nce interval change PATIENT WAS FASTINGP ERFORMED BY: TONYA [facility] Qlauua1998 [address] RoadDublin [place] [id number] ALT [Catalytic activity/Vol] 23 U/L Normal 0-44 [facility]; [facility] Work Phone: Comment on above: PATIENT WAS FASTINGP ERFORMED BY: [facility] Xpwrvi4633 [address] RoadDublin [place] [id number] AST [Catalytic activity/Vol] 24 U/L Normal 0-40 [facility]; [facility] Work Phone: Comment on above: PATIENT WAS FASTINGP ERFORMED BY: [facility] Wukiuc4901 [address] RoadDublin [place] [id number] Bilirubin [Mass/Vol] 0.3 mg/dL Normal 0.0-1.[address] [facility]ensive [facility]; [facility] Work Phone: Comment on above: PATIENT WAS FASTINGP ERFORMED BY: [facility] Fshabs9717 [address] RoadDublin [place] [id number] Calcium [Mass/Vol] 9.2 mg/dL Normal 8.6-10.2 [facility] Internal [facility]; [facility] Work Phone: Comment on above: PATIENT WAS FASTINGP ERFORMED BY: CB [facility] Hlsmqz4641 [address] RoadDublin [place] [id number] Chloride [Moles/Vol] 104 mmol/L Normal 96-106 Comp rehensive Internal Medicine; [facility] Work Phone: Comment on above: PATIENT WAS FASTINGP ERFORMED BY: TONYA Torres[address] [place] [place] [id number] CO2 [Moles/Vol] 22 mmol/L Normal 20-29 Comprehen [facility] Internal Medicine; [facility] Work Phone: Comment on above: PATIENT WAS FASTINGP ERFORMED BY: TONYA Torres6370 [facility] [id number] Creatinine [Mass/Vol] 0.77 mg/dL Normal 0.76-1.27 Com prehensive Internal Medicine; [facility] Work Phone: Comment on above: PATIENT WAS FASTINGP ERFORMED BY: TONYA Torres[address] [facility]Washington [facility] [id number] GFR/1.73 sq M.predicted among blacks CKD-EPI (S/P/Bld) [...] WAS FASTINGP ERFORMED BY: TONYA Torres[address] [facility]laWashington [facility] Center [id number] GFR/1.73 sq M.predicted among non-blacks CKD-EPI (S/P/Bld) [Vol rate/Area] 98 mL/min/1.73 Normal [facility]; [facility] Work Phone: Comment on above: PATIENT WAS FASTINGP ERFORMED BY: TONYA Torres6370 [facility] [id number] Globulin (S) [Mass/Vol] 2.6 g/dL Normal 1.5-4.5 C omprehensive Internal Medicine; [facility] Work Phone: Comment on above: PATIENT WAS FASTINGP ERFORMED BY: TONYA Torres[address] [facility] [id number] Glucose [Mass/Vol] 94 mg/dL Normal 65-99 [facility] Internal [facility]; [facility] Work Phone: Comment on above: PATIENT WAS FASTINGP ERFORMED BY: TONYA Labcoaida DavidsonAfrflt7339 [address] RoadDublin [place] [id number] Potassium [Moles/Vol] 4.4 mmol/L Normal 3.5-5.2 [facility]; [facility] Work Phone: Comment on above: PATIENT WAS FASTINGP ERFORMED BY: TONYA [facility] Xyinlm7875 [address] RoadDublin [place] [id number] Protein [Mass/Vol] 7.2 g/dL Normal 6.0-8.5 [facility] Internal [facility]; [facility] Work Phone: Comment on above: PATIENT WAS FASTINGP ERFORMED BY: TONYA [facility] Xdgpae2120 [address] RoadDuin [place] [id number] Sodium [Moles/Vol] 142 mmol/L Normal 134-144 [facility]; [facility] Work Phone: Comment on above: PATIENT WAS FASTINGP ERFORMED BY: TONYA Labcoaida Rwyoqh0479 [address] Roadblin [place] [id number] Urea nitrogen [Mass/Vol] 12 mg/dL Normal 8-27 [facility]; [facility] Work Phone: Comment on above: PATIENT WAS FASTINGP ERFORMED BY: TONYA [facility] Irijbn4082 [address] Roadblin [place] [id number] Urea nitrogen/Creatinine [Mass ratio] 16 mg/mg Normal 10-24 [facility]; [facility] Work Phone: Comment on above: PATIENT WAS FASTINGP ERFORMED BY: TONYA [facility] Jzqfac[address] [facility]bl[facility] [place] [id number] MICROALBUMINOrdered By: Syst em Headend Technician on 06-26-2021 Albumin DL <= 20 mg/L (U) [Mass/Vol] 13.9 ug/mL Normal [facility]; [facility] Work Phone: Comment on above: PATIENT WAS FASTINGP ERFORMED BY: CB [facility] Mgdgug0783 [address] RoadDublin [place] [id number] Albumin/Creatinine (U) [Mass ratio] 11 {mg/g_creat} Normal 0-29 [facility]; [facility] Work Phone: Comment on above: Normal: 0 - 29 Moder ately increased: 30 - 300 Severely increased: >300 PATIENT WAS FASTINGP ERFORMED BY: TONYA [facility] Veghie8547 [address] RoadDublin [place] [id number] Creatinine (U) [Mass/Vol] 124.4 mg/dL Normal [facility]; [facility] Work Phone: Comment on above: PATIENT WAS FASTINGP ERFORMED BY: TONYA Labjoya Ubqgns2410 [address] RoadDublin [place] [id number] TSH ([id number])Ordered By: Maginee m Headend Technician on 06-26-2021 TSH Qn 2.600 {uIU/mL} Normal 0.450-4.50 0 [facility]; [facility] Work Phone: Comment on above: PATIENT WAS FASTINGP ERFORMED BY: TONYA Labcoaida Ufuhbz5288 [address] RoadDublin [place] [id number] URINALYSIS, W/ MICRO (46123) Ordered By: Machine Operator on 06-26-2021 Appearance (U) Clear Normal Comprehens arianna Internal Medicine; [facility] Work Phone: Comment on above: PATIENT WAS FASTINGP ERFORMED BY: TONYA Labcoaida DavidsonMhwojh5220 [address] RoadDublin [place] [id number] Bilirubin Ql (U) Negative Normal Comprehe nsive Internal Medicine; [facility] Work Phone: Comment on above: PATIENT WAS FASTINGP ERFORMED BY: TONYA [facility] Sotzbp4918 [address] RoadDublin [place] [id number] Color (U) Yellow Normal [facility]; [facility] Work Phone: Comment on above: PATIENT WAS FASTINGP ERFORMED BY: TONYA [facility] Zncgvn9089 [address] RoadDublin [place] [id number] Glucose Ql (U) Negative Normal Comprehens arianna Internal Medicine; [facility] Work Phone: Comment on above: PATIENT WAS FASTINGP ERFORMED BY: TONYA Torres6370 [address]Dublin [place] [id number] Hemoglobin Ql (U) Negative Normal Compreh ensive Internal Medicine; [facility] Work Phone: Comment on above: PATIENT WAS FASTINGP ERFORMED BY: TONYA Davidsonlin6370 [address] RoadDublin [place] [id number] Ketones Ql (U) Negative Normal Comprehens arianna Internal [facility]; [facility] Work Phone: Comment on above: PATIENT WAS FASTINGP ERFORMED BY: TONYA Davidsonlin6370 [address] RoadDublin [place] [id number] Leukocyte esterase Test strip Ql (U) Negative Normal [facility]; [facility] Work Phone: Comment on above: PATIENT WAS FASTINGP ERFORMED BY: TONYA Torres6370 [address] RoadDublin [place] [id number] Microscopic observation LM Nom (Urine sed) MICRON Normal [facility]; [facility] Work Phone: Comment on above: Microscopic follows if indicated. PATIENT WAS FASTINGP ERFORMED BY: TONYA Davidsonlin6370 [address] RoadDublin [place] [id number] Microscopic observation LM Nom (Urine sed) See below: Normal [facility]; [facility] Work Phone: Comment on above: Microscopic was lynnette cated and was performed. PATIENT WAS FASTINGP ERFORMED BY: TONYA Stoddard Hsjnja8983 [address] RoadDublin [place] [id number] Nitrite Ql (U) Negative Normal Comprehens arianna [facility]; [facility] Work Phone: Comment on above: PATIENT WAS FASTINGP ERFORMED BY: TONYA Labjuliana DavidsonNhsyua9624 [address] RoadDublin [place] [id number] pH (U) 6.5 [pH] Normal 5.0-7.5 [facility]; [facility] Work Phone: Comment on above: PATIENT WAS FASTINGP ERFORMED BY: [facility] [facility] [id number] Protein Ql (U) Negative Normal Comprehens arianna Internal Medicine; [facility] Work Phone: Comment on above: PATIENT WAS FASTINGP ERFORMED BY: [facility] [facility] [id number] Specific gravity (U) [Rel density] 1.020 1 Normal 1.005-1.03 0 [facility]; [facility] Work Phone: Comment on above: PATIENT WAS FASTINGP ERFORMED BY: [facility] [place] [address] [id number] Urobilinogen (U) [Mass/Vol] 0.2 mg/dL Normal 0.2-1.0 [facility]; [facility] Work Phone: Comment on above: PATIENT WAS FASTINGP ERFORMED BY: [place] [id number] [facility] [id number] HEPATITIS C ANTIBODY (86355) Ordered By: Machine Operator on 12-21-2020 HCV Ab Signal/Cutoff IA [Rel units/Vol] {ratio} Normal 0.0-0.9 [facility]; [facility] Work Phone: Comment on above: Negative: < 0.8 Inde terminate: 0.8 - 0.9 Positive: > 0.9 . The CDC recommends that a positive HCV antibody result be followed up with a HCV Nucleic Acid Amplification test (596468). Test(s) 043537-CBU-F ; 607845-BIH-Z; 958051-Jpxbrdpdqgmcu; 138494-Sxqpsvikeao, Total; 146989-NSK-B (Total); 448917-Wjhmg LDL-P; 667700-ASE Size; 414862-UZ-BT Scorewas developed and its performance characteristics determinedby [facility]. It has not been cleared or approved by the Foodand Drug Administration.PATIENT WAS FASTINGPERFORMED BY: [place] 908027 [facility] [id number] BY: [facility] [facility] [id number] MICROALBUMINOrdered By: Syst em Headend Technician on 12-21-2020 Albumin DL <= 20 mg/L (U) [Mass/Vol] 9.5 ug/mL Normal [facility]; [facility] Work Phone: Comment on above: Test(s) 141907-GLL-U ; 080372-ZXG-C; 452617-Vsjdacugvvrdn; 651043-Qkdplrutevb, Total; 271208-GBM-R (Total); 216103-Hjmai LDL-P; 181594-LJG Size; 453500-WE-CW Scorewas developed and its performance characteristics determinedby [employer]. It has not been cleared or approved by the Foodand Drug Administration.PATIENT WAS FASTINGPERFORMED BY: Cover Lockscreen[address] [id number] BY: [facility] [id number] Albumin/Creatinine (U) [Mass ratio] 10 {mg/g_creat} Normal 0-29 [facility]; [facility] Work Phone: Comment on above: Normal: 0 - 29 Moder ately increased: 30 - 300 Severely increased: >300 Test(s) 759415-YMP-Z ; 017831-JMV-S; 789147-Rvvjxglggbose; 155365-Ecflmamrurs, Total; 319615-CHJ-A (Total); 918314-Hjkdw LDL-P; 974933-QNP Size; 931711-HP-EW Scorewas developed and its performance characteristics determinedby [employer]. It has not been cleared or approved by the Foodand Drug Administration.PATIENT WAS FASTINGPERFORMED BY: Cover Lockscreen[address] [id number] BY: [facility]70 [employer]oc[employer] Holding CompanyCritical access hospital [id number] Creatinine (U) [Mass/Vol] 91.2 mg/dL Normal [facility]; [facility] Work Phone: Comment on above: Test(s) 517964-XER-K ; 552882-PJX-B; 546734-Epwhcwjqdkgby; 974511-Nnjjppeslbj, Total; 030214-PKI-D (Total); 030511-Hzuum LDL-P; 977473-QBO Size; 558774-LP-VE Scorewas developed and its performance characteristics determinedby [employer]. It has not been cleared or approved by the Foodand Drug Administration.PATIENT WAS FASTINGPERFORMED BY: [employer] [address] [id number] BY: Public[employer] [facility] [id number] NMR Profile (73725)Ordered B y: Machine Operator on 12-21-2020 Cholesterol [Mass/Vol] 140 mg/dL Normal 100-199 Co [facility] Internal Medicine; [facility] Work Phone: Comment on above: Test(s) 181387-LRK-J ; 939104-HOD-A; 819094-Fxsnvpgcxsrcy; 596411-Xtqivsafcjg, Total; 804844-THX-K (Total); 088504-Sfwzx LDL-P; 470999-CIK Size; 330864-GH-HM Scorewas developed and its performance characteristics determinedby [employer]. It has not been cleared or approved by the Foodand Drug Administration.PATIENT WAS FASTINGPERFORMED BY: AdNear [address] [id number] BY: Solicore[address] [facility] [id number] Lipoprotein.alpha [Moles/Vol] 32.7 umol/L Normal [facility]; [facility] Work Phone: Comment on above: Test(s) 453682-FJQ-E ; 599239-OEV-B; 288152-Kwgbpdyycbpmu; 768433-Dyaarpnrcyw, Total; 469054-XCK-A (Total); 650777-Nmpxd LDL-P; 563021-YSL Size; 574833-SE-PZ Scorewas developed and its performance characteristics determinedby [employer]. It has not been cleared or approved by the Foodand Drug Administration.PATIENT WAS FASTINGPERFORMED BY: AdNear [address] [id number] BY: [facility] [facility] [id number] Lipoprotein.beta.subpar ticle [Entitic length] 21.0 nm Normal [facility]; [facility] [...] not afterLDL-P is taken into account. Test(s) 130421-RWP-Z ; 679085-HHN-E; 031953-Dtkrekqrrqwcm; 801762-Yooyihgpuzt, Total; 282648-JTF-M (Total); 577119-Ykowa LDL-P; 534014-SRF Size; 165665-AJ-DB Scorewas developed and its performance characteristics determinedby [employer]. It has not been cleared or approved by the Foodand Drug Administration.PATIENT WAS FASTINGPERFORMED BY: [address] [id number] BY: [facility] Hospital[address] [facility] [id number] Lipoprotein.beta.subpar ticle [Moles/Vol] 794 nmol/L Normal [facility]; [facility] Work Phone: Comment on above: Low < 1000 Moderate 1000 - 1299 Borderline-High 1300 - 1599 High 1600 - 2000 Very High > 2000 Test(s) 806707-JGB-S ; 559068-ENA-K; 086479-Vygrtnosciwaj; 794035-Ljglxwumaya, Total; 131979-ZZQ-O (Total); 916725-Evcvk LDL-P; 240391-WMQ Size; 762366-OD-HI Scorewas developed and its performance characteristics determinedby [employer]. It has not been cleared or approved by the Foodand Drug Administration.PATIENT WAS FASTINGPERFORMED BY: [employer] [facility] [id number] BY: [facility]Washington [facility] Center [id number] Lipoprotein.beta.subpar ticle.small [Moles/Vol] 227 nmol/L Normal Comprehe nsive Internal Medicine; [facility] Work Phone: Comment on above: Test(s) 128735-WIG-Y ; 199473-SST-N; 697823-Suxwoqvcglhvu; 627822-Tcpxtdgjacw, Total; 303475-TWO-R (Total); 746200-Lssfl LDL-P; 591926-GEX Size; 581594-UD-WU Scorewas developed and its performance characteristics determinedby [employer]. It has not been cleared or approved by the FoodArmetheon Drug Administration.PATIENT WAS FASTINGPERFORMED BY: [employer]1447 [facility] [id number] BY: Solicore6370 [address] [facility] Access SoftwareWashington Regional Medical Center [id number] Triglyceride [Mass/Vol] 110 mg/dL Normal 0-149 C omprehensive Internal Medicine; [facility] Work Phone: Comment on above: Test(s) 095782-AJO-X ; 656669-ZND-L; 826862-Fvthltglumfmf; 368890-Kwctdgguzcc, Total; 000242-HPG-U (Total); 948514-Erese LDL-P; 309639-RVB Size; 192294-ID-QI Scorewas developed and its performance characteristics determinedby [employer]. It has not been cleared or approved by the Foodand Drug Administration.PATIENT WAS FASTINGPERFORMED BY: Celaton[address] [id number] BY: CelatonJersey Shore University Medical CenterCsksur14[address] [facility] [id number] NMR Profile (31802) 71 mg/dL Normal 0-99 [facility] ehensive Internal Medicine; [facility] Work Phone: Comment on above: . Optimal < 100 Abov e optimal 100 - 129 Borderline 130 - 159 High 160 - 189 Very high > 189 . Test(s) 339598-SFF-O ; 186814-ZFX-F; 896451-Xfnnueqsiyhia; 184039-Torbtznlhhl, Total; 684466-VCN-Y (Total); 620100-Gbouu LDL-P; 368028-KAE Size; 472226-OX-EZ Scorewas developed and its performance characteristics determinedby [employer]. It has not been cleared or approved by the Foodand Drug Administration.PATIENT WAS FASTINGPERFORMED BY: Celaton[address] [id number] BY: Celaton Cjjlyo4[address] [facility] [id number] NMR Profile (08748) 49 mg/dL Normal [facility]; [facility] Work Phone: Comment on above: Test(s) 711108-QEC-Q ; 949176-RWQ-I; 121971-Jwmtnpqsftzno; 817957-Fydlgjfmrqv, Total; 264139-JWU-L (Total); 454185-Llefz LDL-P; 620057-CGL Size; 705588-HS-IL Scorewas developed and its performance characteristics determinedby [employer]. It has not been cleared or approved by the Foodand Drug Administration.PATIENT WAS FASTINGPERFORMED BY: Celaton[address] [id number] BY: CelatonJersey Shore University Medical CenterCmruie77[address] [facility] [id number] NMR Profile (34381) 110 mg/dL Normal 0-149 Compr ehensive Internal Medicine; [facility] Work Phone: NMR Profile (11710) 140 mg/dL Normal 100-199 Compr [facility] Internal Medicine; [facility] Work Phone: PSA (PROSTATE SPECIFIC ANTIG EN) (V76.44)Ordered By: Machine Operator on 12-21-2020 Prostate specific Ag [Mass/Vol] 0.3 ng/mL Normal 0.0-4.0 [facility]; [facility] Work Phone: Comment on above: EmergentDetection ECLIA methodol ogy. .According to the [place] [employer], Serum PSA shoulddecrease and remain at undetectable levels after radicalprostatectomy. The AUA defines biochemical recurrence as an initialPSA value 0.2 ng/mL or greater followed by a subsequent confirmatoryPSA value 0.2 ng/mL or greater.Values obtained with different assay methods or kits cannot be usedinterchangeably. Results cannot be interpreted as absolute evidenceof the presence or absence of malignant disease. Test(s) 009962-XLW-E ; 306662-ITY-P; 897348-Qesrgupmcacok; 220525-Yhedorvwiin, Total; 950175-LKW-X (Total); 087620-Iowty LDL-P; 575701-UFF Size; 676348-DH-HS Scorewas developed and its performance characteristics determinedby [employer]. It has not been cleared or approved by the Foodand Drug Administration.PATIENT WAS FASTINGPERFORMED BY: LabAd[employer] [address] [id number] BY: LabPerMicroJersey Shore University Medical CenterYsqjer67[address] [facility] [id number] TSH (90976)Ordered By: Syste m Headend Technician on 12-21-2020 TSH Qn 2.870 {uIU/mL} Normal 0.450-4.50 0 [facility] Internal Medicine; [facility] Internal Medicine Work Phone: Comment on above: Test(s) 733921-FOD-D ; 584973-YIO-N; 416371-Nbhwuuzqwawiq; 566901-Wztgnyffqrd, Total; 931939-FFR-V (Total); 760925-Ynnpq LDL-P; 620456-MMN Size; 285701-OA-VL Scorewas developed and its performance characteristics determinedby [employer]. It has not been cleared or approved by the Foodand Drug Administration.PATIENT WAS FASTINGPERFORMED BY: AdNear [address] [id number] BY: [facility]70 [facility]ENXWashington [facility] Center [id number] URINALYSIS, W/ MICRO (77588) Ordered By: Machine Operator on 12-21-2020 Appearance (U) Clear Normal Comprehens arianna Internal Medicine; [facility] Work Phone: Comment on above: Test(s) 430380-SAM-X ; 038634-VZZ-R; 785894-Jskywssyqxgvt; 424015-Frewghrbije, Total; 666863-RFH-B (Total); 919569-Clulc LDL-P; 216170-PNO Size; 749162-DF-UL Scorewas developed and its performance characteristics determinedby [employer]. It has not been cleared or approved by the Foodand Drug Administration.PATIENT WAS FASTINGPERFORMED BY: AdNear [address] [id number] BY: [facility]70 PaymentWorksSaint Elizabeth Edgewood [id number] Bilirubin Ql (U) Negative Normal Comprehe nsive Internal Medicine; [facility] Work Phone: Comment on above: Test(s) 372034-ISN-E ; 435715-WZC-C; 850357-Gktjsklvuqsxq; 934647-Scakwpfyizw, Total; 648228-ZOQ-Q (Total); 869585-Lpcew LDL-P; 255995-CZO Size; 886669-XQ-TC Scorewas developed and its performance characteristics determinedby [employer]. It has not been cleared or approved by the Foodand Drug Administration.PATIENT WAS FASTINGPERFORMED BY: AdNear [address] [id number] BY: Kaazinglin6370 [facility]XWashington [facility] Center [id number] Color (U) Yellow Normal [facility]; [facility] Work Phone: Comment on above: Test(s) 632894-LDC-B ; 358829-MEU-H; 619492-Abrybuvigrasv; 943046-Itzlmnsqjdl, Total; 555475-RGN-O (Total); 125432-Jyuyv LDL-P; 617456-HBC Size; 511019-KJ-OY Scorewas developed and its performance characteristics determinedby [employer]. It has not been cleared or approved by the Foodand Drug Administration.PATIENT WAS FASTINGPERFORMED BY: AdNear [address] [id number] BY: IKOTECH Rfyvul90[address] [facility] [id number] Glucose Ql (U) Negative Normal Comprehens arianna [facility]; [facility] Work Phone: Comment on above: Test(s) 144948-JPP-M ; 359448-FEC-B; 024625-Faoxcobqxqdcx; 415873-Erpebuxildi, Total; 991135-SCZ-L (Total); 031342-Tgmuf LDL-P; 161951-PRK Size; 050320-KO-UU Scorewas developed and its performance characteristics determinedby [employer]. It has not been cleared or approved by the Foodand Drug Administration.PATIENT WAS FASTINGPERFORMED BY: AdNear [address] [id number] BY: IKOTECH Zijazh[address] [facility] [id number] Hemoglobin Ql (U) Negative Normal Compreh ensive Internal Medicine; [facility] Work Phone: Comment on above: Test(s) 100286-ZAZ-C ; 334506-MOE-Z; 222552-Nzqxithyvvejo; 714157-Kdprgczuzbx, Total; 173248-OCL-F (Total); 033717-Iubpc LDL-P; 539755-SOK Size; 151894-QY-SQ Scorewas developed and its performance characteristics determinedby [employer]. It has not been cleared or approved by the Foodand Drug Administration.PATIENT WAS FASTINGPERFORMED BY: AdNear [address] [id number] BY: Solicore[address] [facility] [id number] Ketones Ql (U) Negative Normal Comprehens [facility] Internal Medicine; [facility] Work Phone: Comment on above: Test(s) 480848-QWU-J ; 926621-YPB-R; 373796-Xfjynxldmqjrc; 529661-Gcjahbihvre, Total; 319836-OIW-G (Total); 040958-Qeeyq LDL-P; 841138-WPX Size; 294923-CZ-RH Scorewas developed and its performance characteristics determinedby [employer]. It has not been cleared or approved by the Foodand Drug Administration.PATIENT WAS FASTINGPERFORMED BY: Cover Lockscreen[address] [id number] BY: Solicore6370 [facility]XWashington [facility] Center [id number] Leukocyte esterase Test strip Ql (U) Negative Normal [facility]; [facility] Work Phone: Comment on above: Test(s) 249245-PQD-Q ; 327959-IRX-J; 442164-Bcxrrfjrnqoxe; 212423-Swldlbyiinj, Total; 093387-TWC-Z (Total); 392037-Pfjae LDL-P; 658958-GXO Size; 673101-ZP-JS Scorewas developed and its performance characteristics determinedby [employer]. It has not been cleared or approved by the Foodand Drug Administration.PATIENT WAS FASTINGPERFORMED BY: Cover Lockscreen[address] [id number] BY: Kaazinglin6370 [address] [facility] NetworksCritical access hospital [id number] Microscopic observation LM Nom (Urine sed) MICRON Normal [facility]; [facility] Work Phone: Comment on above: Microscopic follows if indicated. Test(s) 091708-GKI-W ; 438176-FPZ-W; 074922-Skqibpgtdwnwv; 725832-Lcrsszxaczz, Total; 244525-QNB-N (Total); 161565-Nzfvm LDL-P; 206120-BCR Size; 142416-NC-XD Scorewas developed and its performance characteristics determinedby [employer]. It has not been cleared or approved by the Foodand Drug Administration.PATIENT WAS FASTINGPERFORMED BY: AdNear [address] [id number] BY: Membersuite Qlfhcm8719 [address] [facility] NetworksCritical access hospital [id number] Microscopic observation LM Nom (Urine sed) See below: Normal [facility]; [facility] Work Phone: Comment on above: Microscopic was lynnette cated and was performed. Test(s) 979035-NOV-A ; 101032-PWH-T; 535244-Wdwskwogblhae; 021335-Novbdokkjbk, Total; 660423-IVY-M (Total); 650146-Xjasi LDL-P; 105839-RDJ Size; 297948-QH-IK Scorewas developed and its performance characteristics determinedby [employer]. It has not been cleared or approved by the Foodand Drug Administration.PATIENT WAS FASTINGPERFORMED BY: Cover Lockscreen[address] [id number] BY: [facility]70 [facility]XWashington [facility] Center [id number] Nitrite Ql (U) Negative Normal Comprehens [facility] Internal Medicine; [facility] Work Phone: Comment on above: Test(s) 656844-BLX-V ; 091347-PZB-Z; 988876-Bbemaecmftsuc; 793605-Gqkmnybtrzr, Total; 304146-WQB-Y (Total); 692862-Mkdyp LDL-P; 069244-UAW Size; 678900-OO-IN Scorewas developed and its performance characteristics determinedby [employer]. It has not been cleared or approved by the Foodand Drug Administration.PATIENT WAS FASTINGPERFORMED BY: AdNear [address] [id number] BY: Solicore6370 [facility] [id number] pH (U) 7.0 [pH] Normal 5.0-7.5 [facility]; [facility] Work Phone: Comment on above: Test(s) 494391-SQY-L ; 360988-SEX-L; 518889-Cbcjhbtdklnne; 406303-Pknyxvrdyvk, Total; 892910-JLA-L (Total); 911922-Scewm LDL-P; 479587-PWQ Size; 125018-ZJ-HX Scorewas developed and its performance characteristics determinedby [employer]. It has not been cleared or approved by the Foodand Drug Administration.PATIENT WAS FASTINGPERFORMED BY: Cover Lockscreen[address] [id number] BY: IKOTECH Tsziri[address] [facility] [id number] Protein Ql (U) Negative Normal [facility] Internal Medicine; [facility] Work Phone: Comment on above: Test(s) 004863-KGM-F ; 388893-QJK-H; 840404-Zwrfipuuztrvx; 729681-Pqpgageomqz, Total; 668848-KNM-A (Total); 722003-Lssmn LDL-P; 390190-JLV Size; 948954-AN-JC Scorewas developed and its performance characteristics determinedby [employer]. It has not been cleared or approved by the Foodand Drug Administration.PATIENT WAS FASTINGPERFORMED BY: AdNear [address] [id number] BY: IKOTECH Pmweua039[address] [facility] [id number] Specific gravity (U) [Rel density] 1.018 1 Normal 1.005-1.03 0 [facility]; [facility] Work Phone: Comment on above: Test(s) 797627-PCK-F ; 715626-IML-I; 226789-Taudasruzhnln; 367330-Nnzpifegvam, Total; 595727-GUY-C (Total); 868016-Iidgi LDL-P; 267301-LWX Size; 138573-HW-VP Scorewas developed and its performance characteristics determinedby [employer]. It has not been cleared or approved by the Foodand Drug Administration.PATIENT WAS FASTINGPERFORMED BY: AdNear [address] [id number] BY: CelatonJersey Shore University Medical CenterGftdpa4[address] [facility] [id number] Urobilinogen (U) [Mass/Vol] 0.2 mg/dL Normal 0.2-1.0 [facility]; [facility] Work Phone: Comment on above: Test(s) 032587-OAU-B ; 524372-PCY-N; 798124-Nvclfflqjtxqf; 974235-Mutblddtsdv, Total; 273798-QBX-V (Total); 177430-Fizud LDL-P; 990532-KXJ Size; 114688-LN-MC Scorewas developed and its performance characteristics determinedby [employer]. It has not been cleared or approved by the Foodand Drug Administration.PATIENT WAS FASTINGPERFORMED BY: Celaton[address] [id number] BY: Celaton Hnlkrm51[address] [facility] [id number] Krystal 12-14-[facility] FREDERIC OVALLES SR ([id number]) 1960 M Date Time Provider Department 12/14/20 [...] Status:Closed by XIMENA GONZALEZ on 12/14/20 Normal [facility] Basophil percentageon 2019 Eosinophils/100 WBC (Bld) 6 % High 0-5 [facility] Blood platelet adequacy dete ction by light microscopyon 05-05-2020 Platelets LM Ql (Bld) ADEQUATE ADEQ [facility] - Hematology and Cell countson 05-05-2020 Lymphocytes/100 WBC (Bld) 20 % 19-41 [facility] Metamyelocytes/100 WBC (Bld) 3 % High 0-1 [facility] Monocytes/100 WBC (Bld) 5 % 0-10 [facility] Myelocytes/100 WBC (Bld) 1 % High 0-0 [facility] Neutrophils/100 WBC (Bld) 65 % 47-70 [facility] Potassiumon 05-05-2020 Potassium 6 % High 0-5 [facility] RBC morphologyon 05-05-2020 RBC morphology finding Nom (Bld) NORM C+C NORMAL NORM C&C [facility] Review by pathologiston 04-21 Pathologist review Miguel (Unsp spec) [Interp] Reviewed [facility] Comment on above: Previous reported re sult: Ayleen jose alfredo Edited by: NENO on 05/06/20:1247Leukocytosis with Neutrophilic left shift.Clinical correlation necessary.Ryan Tinoco M.D. 05/06/20 AMENDED REPORT 05/06/20 1247 PATH REV previously reported as: Ayleen veliz Total cell counton 0 Cells counted Molgen (Bld/Tiss) [#] 100 MANUAL DIFF [facility] Basophils/100 WBC Manual cnt (Unsp spec)on 04-28-2020 Basophils/100 WBC (Unsp spec) 2 % High 0-1 [facility] Laboratory - Hematology and Cell countson 04-28-2020 Band form neutrophils/100 WBC (Bld) 12 % High 0-5 [facility] No Panel Informationon 04-28 Promyelocytes % 1 High 0-0 [facility] CBC W/AUTO DIFF WBC (77105)O rdered By: Machine Operator on 04-26-2020 Basophils (Bld) [#/Vol] 0.6 {x10E3/uL} Abnormal 0.0-0.2 [facility] Work Phone: Comment on above: Test(s) 212989-TMI-M ; 274993-UYN-R; 502989-Yefsutfchmfju; 913020-Ibpaexqqzfh, Total; 679789-FZH-P (Total); 213002-Eeyip LDL-P; 803873-TOA Size; 112113-JZ-SE Scorewas developed and its performance characteristics determinedby [employer]. It has not been cleared or approved by the Foodand Drug Administration.PATIENT WAS FASTINGPERFORMED BY: BN LabCoTracy Ville [address] [facility] [id number] BY: LabPerMicroJersey Shore University Medical CenterGmzdbc12[address] [facility] [id number] Basophils (Bld) [#/Vol] 0.6 10*3/uL Abnormal 0.0-0.2 [facility]; [facility] Work Phone: Comment on above: Test(s) 269268-YER-L ; 773479-MKD-V; 008257-Hounzvpmaenea; 146416-Mtxdiddvydv, Total; 136235-TXW-V (Total); 565721-Amtlr LDL-P; 219570-IUO Size; 761947-XR-WG Scorewas developed and its performance characteristics determinedby [employer]. It has not been cleared or approved by the Foodand Drug Administration.PATIENT WAS FASTINGPERFORMED BY: AdNear [address] [id number] BY: IKOTECH Cchral55[address] [facility] [id number] Basophils/100 WBC (Bld) 2 % Normal C [facility] Internal Medicine Work Phone: Comment on above: Test(s) 268623-MSC-V ; 255086-THG-Q; 266747-Rmdxbnmgywzhk; 658342-Tcepewkhpqs, Total; 165695-KRW-K (Total); 803472-Nbbuz LDL-P; 780136-KYM Size; 176667-SV-AN Scorewas developed and its performance characteristics determinedby [employer]. It has not been cleared or approved by the Foodand Drug Administration.PATIENT WAS FASTINGPERFORMED BY: AdNear [address] [id number] BY: IKOTECH Nfoflt24[address] [facility] [id number] Eosinophils (Bld) [#/Vol] 2.0 {x10E3/uL} Abnormal 0.0-0.4 [facility] Work Phone: Comment on above: Test(s) 410778-YCS-O ; 926705-JZE-V; 543347-Ebipjudpweikz; 052595-Pichqxsgciw, Total; 577993-HYR-Y (Total); 844652-Uikdl LDL-P; 319528-GLZ Size; 359901-JL-UF Scorewas developed and its performance characteristics determinedby [employer]. It has not been cleared or approved by the Foodand Drug Administration.PATIENT WAS FASTINGPERFORMED BY: AdNear [address] [id number] BY: Solicore6370 [facility] [id number] Eosinophils (Bld) [#/Vol] 2.0 10*3/uL Abnormal 0.0-0.4 [facility]; [facility] Work Phone: Comment on above: Test(s) 523701-PYU-B ; 329966-TVP-V; 414008-Qieafsxgranad; 256671-Fmxcnnmangv, Total; 409184-YUF-V (Total); 057386-Kqqgh LDL-P; 241031-FEV Size; 041014-TE-XC Scorewas developed and its performance characteristics determinedby [employer]. It has not been cleared or approved by the Foodand Drug Administration.PATIENT WAS FASTINGPERFORMED BY: AdNear [address] [id number] BY: Solicore6370 [facility]XWashington [facility] Center [id number] Eosinophils/100 WBC (Bld) 7 % Normal [facility] Internal Medicine Work Phone: Comment on above: Test(s) 640382-SEB-Q ; 166249-COZ-N; 566404-Idrpphozzvixf; 590614-Bfuobsaxvgz, Total; 974733-CGL-E (Total); 541616-Pxzpl LDL-P; 156557-YWE Size; 696236-ER-WT Scorewas developed and its performance characteristics determinedby [employer]. It has not been cleared or approved by the Foodand Drug Administration.PATIENT WAS FASTINGPERFORMED BY: AdNear [address] [id number] BY: Kaazinglin[address] [facility] [id number] Erythrocyte distribution width (RBC) [Ratio] 13.6 % Normal 11.6-15.4 [facility] Work Phone: Comment on above: Test(s) 261540-BYG-D ; 095955-ITJ-M; 435901-Phuasmlatvsfm; 019203-Jsrbyglnbgq, Total; 093098-LGY-H (Total); 623749-Dwnvi LDL-P; 078010-LLG Size; 621193-RH-WP Scorewas developed and its performance characteristics determinedby [employer]. It has not been cleared or approved by the Foodand Drug Administration.PATIENT WAS FASTINGPERFORMED BY: AdNear [address] [id number] BY: Solicore[address] [facility] [id number] Hematocrit (Bld) [Volume fraction] 44.4 % Normal 37.5-51.0 [facility] Work Phone: Comment on above: Test(s) 026003-RFF-B ; 210411-UKA-K; 843908-Xkfggznhbhjio; 360526-Odogyvqchpa, Total; 697812-VDS-L (Total); 732147-Lhhup LDL-P; 688800-ZRU Size; 866544-OY-VB Scorewas developed and its performance characteristics determinedby [employer]. It has not been cleared or approved by the Foodand Drug Administration.PATIENT WAS FASTINGPERFORMED BY: AdNear [address] [id number] BY: [facility] [facility] [id number] Hemoglobin (Bld) [Mass/Vol] 15.2 g/dL Normal 13.0-17.7 [facility] Work Phone: Comment on above: Test(s) 833019-VEL-U ; 866795-ZLM-D; 883002-Hzxsxyqhlbnaz; 608216-Yvzkwqsecig, Total; 436038-ZBD-D (Total); 312628-Wcuep LDL-P; 006789-PGY Size; 344945-EY-BQ Scorewas developed and its performance characteristics determinedby [employer]. It has not been cleared or approved by the Foodand Drug Administration.PATIENT WAS FASTINGPERFORMED BY: AdNear [address] [id number] BY: IKOTECH Zswlmf9384 [facility] [id number] Immature cells/100 WBC (Bld) Note Normal [facility] Work Phone: Comment on above: Test(s) 555956-FIJ-C ; 631949-NUO-F; 001937-Ufgsjbivneqjl; 393685-Nlugpwwuvpg, Total; 535493-GNG-M (Total); 875744-Falzx LDL-P; 140893-DDG Size; 089919-EO-EY Scorewas developed and its performance characteristics determinedby [employer]. It has not been cleared or approved by the Foodand Drug Administration.PATIENT WAS FASTINGPERFORMED BY: Piper [address] [id number] BY: CelatonJersey Shore University Medical CenterEweuej4592 [facility] [id number] Lymphocytes (Bld) [#/Vol] 4.2 {x10E3/uL} Abnormal 0.7-3.1 [facility] Work Phone: Comment on above: Test(s) 344509-XZF-T ; 228728-EBU-U; 940542-Drwgylhqdqduv; 013184-Zeetuqnwppn, Total; 041241-YRS-V (Total); 674506-Myemk LDL-P; 268520-KRO Size; 629395-FP-GI Scorewas developed and its performance characteristics determinedby Piper. It has not been cleared or approved by the Foodand Drug Administration.PATIENT WAS FASTINGPERFORMED BY: Piper [address] [id number] BY: CelatonJersey Shore University Medical CenterDydido[address] [facility] [id number] Lymphocytes (Bld) [#/Vol] 4.2 10*3/uL Abnormal 0.7-3.1 [facility]; [facility] Work Phone: Comment on above: Test(s) 760949-EGM-J ; 406303-EGB-M; 297681-Zumnpsqthlefd; 183702-Osrnmfsffjh, Total; 610715-DMC-U (Total); 136211-Hjxed LDL-P; 039158-FRN Size; 665471-ZO-SI Scorewas developed and its performance characteristics determinedby Piper. It has not been cleared or approved by the Foodand Drug Administration.PATIENT WAS FASTINGPERFORMED BY: AdNear [address] [id number] BY: PublicBeta[address] [facility] [id number] Lymphocytes/100 WBC (Bld) 15 % Normal [facility] Work Phone: Comment on above: Test(s) 435900-SBY-B ; 548563-CVN-U; 582816-Dvuoennpyljls; 862016-Wcrealprrky, Total; 925457-GQJ-P (Total); 135463-Jashd LDL-P; 175849-GNG Size; 001516-MN-DT Scorewas developed and its performance characteristics determinedby Piper. It has not been cleared or approved by the Foodand Drug Administration.PATIENT WAS FASTINGPERFORMED BY: AdNear [address] [id number] BY: Solicore[address] [facility] [id number] MCH (RBC) [Entitic mass] 30.3 pg Normal 26.6-33.0 [facility] Internal Medicine Work Phone: Comment on above: Test(s) 943948-WCD-H ; 041397-AFG-Y; 300114-Nkoppvpwdtnsn; 487520-Klahkhzjeuk, Total; 457976-CIW-I (Total); 087352-Bjtcg LDL-P; 324481-NMO Size; 984529-BD-NT Scorewas developed and its performance characteristics determinedby Piper. It has not been cleared or approved by the Foodand Drug Administration.PATIENT WAS FASTINGPERFORMED BY: AdNear [address] [id number] BY: Membersuite Ykwxqi95[address] [facility] [id number] MCHC (RBC) [Mass/Vol] 34.2 g/dL Normal 31.5-35.7 [facility] Internal Medicine Work Phone: Comment on above: Test(s) 830859-PWW-P ; 043763-SKH-H; 670209-Rsohtnibryrpn; 584541-Fwgzjjqvrsf, Total; 286941-DOY-K (Total); 760967-Alqyp LDL-P; 519950-XWD Size; 282587-VI-LI Scorewas developed and its performance characteristics determinedby Piper. It has not been cleared or approved by the Foodand Drug Administration.PATIENT WAS FASTINGPERFORMED BY: AdNear [address] [id number] BY: [facility] Direct Access SoftwareWashington Regional Medical Center [id number] MCV (RBC) [Entitic vol] 88 fL Normal 79-97 [facility] Internal Medicine Work Phone: Comment on above: Test(s) 203499-OMJ-N ; 759473-TBR-Q; 425387-Zdqczoarvxwkx; 007890-Xshyksfmfla, Total; 344216-DSI-R (Total); 736694-Qkzrd LDL-P; 543585-TJO Size; 360924-RF-PU Scorewas developed and its performance characteristics determinedby Piper. It has not been cleared or approved by the Foodand Drug Administration.PATIENT WAS FASTINGPERFORMED BY: AdNear [address] [id number] BY: Solicore6370 HaneySaint John's Health SystemXIFINWashington Regional Medical Center [id number] Monocytes (Bld) [#/Vol] 2.0 {x10E3/uL} Abnormal 0.1-0.9 [facility] Work Phone: Comment on above: Test(s) 192606-BAO-W ; 743192-ARK-K; 164436-Bzhjevaafknhz; 374843-Lncmqznwxge, Total; 437052-ZPT-A (Total); 589304-Rznuv LDL-P; 211511-TTQ Size; 079938-SR-TD Scorewas developed and its performance characteristics determinedby Piper. It has not been cleared or approved by the Foodand Drug Administration.PATIENT WAS FASTINGPERFORMED BY: AdNear [address] [id number] BY: [facility] [facility] [id number] Monocytes (Bld) [#/Vol] 2.0 10*3/uL Abnormal 0.1-0.9 [facility]; [facility] Work Phone: Comment on above: Test(s) 652387-MNJ-K ; 988623-PVB-D; 237318-Aurkjwkdhfqgp; 918540-Ihvjbrvrshh, Total; 730304-UZM-P (Total); 531168-Dthhp LDL-P; 634517-USL Size; 363870-AK-UA Scorewas developed and its performance characteristics determinedby Piper. It has not been cleared or approved by the Foodand Drug Administration.PATIENT WAS FASTINGPERFORMED BY: Cover Lockscreen[address] [id number] BY: Solicore6[address] [facility] [id number] Monocytes/100 WBC (Bld) 7 % Normal [facility] Internal Medicine Work Phone: Comment on above: Test(s) 801922-VYK-X ; 460589-QXQ-M; 402779-Lohpstnsojnvc; 178873-Olcjbjvnyyy, Total; 213155-GAS-W (Total); 248053-Kdqav LDL-P; 553485-ZGV Size; 952500-JR-IO Scorewas developed and its performance characteristics determinedby Piper. It has not been cleared or approved by the Foodand Drug Administration.PATIENT WAS FASTINGPERFORMED BY: Cover Lockscreen[address] [id number] BY: IKOTECH Obdybv9[address] [facility] [id number] Morphology Miguel (Bld) [Interp] Note: Normal [facility] Work Phone: Comment on above: Manual differential was performed. Test(s) 697296-RYU-Z ; 478923-TNL-D; 648590-Hvixrzylbuoqg; 902456-Mprtjldkvlj, Total; 992160-IYQ-D (Total); 391831-Enche LDL-P; 578008-YJW Size; 992390-IE-UJ Scorewas developed and its performance characteristics determinedby Piper. It has not been cleared or approved by the Foodand Drug Administration.PATIENT WAS FASTINGPERFORMED BY: Celaton[address] [id number] BY: CelatonJersey Shore University Medical CenterYzoihh668[address] [facility] [id number] Neutrophils (Bld) [#/Vol] 15.5 {x10E3/uL} Abnormal 1.4-7.0 [facility] Work Phone: Comment on above: Test(s) 038361-GNX-T ; 171258-KXS-Y; 765648-Buiwokhuqaesd; 651381-Lydtuxlwzai, Total; 794693-RMI-S (Total); 515288-Jaspn LDL-P; 802751-GWI Size; 853933-YN-NY Scorewas developed and its performance characteristics determinedby Piper. It has not been cleared or approved by the Foodand Drug Administration.PATIENT WAS FASTINGPERFORMED BY: Piper [address] [id number] BY: CelatonUNM Psychiatric CenterKbpzrs1358 [facility] [id number] Neutrophils (Bld) [#/Vol] 15.5 10*3/uL Abnormal 1.4-7.0 [facility]; [facility] Work Phone: Comment on above: Test(s) 476116-LIC-C ; 000347-CKP-Y; 101445-Xjmcrfwntzgpy; 783358-Mzrdootibxs, Total; 868166-ARX-O (Total); 135180-Xwcns LDL-P; 816717-ZJI Size; 114063-DS-VI Scorewas developed and its performance characteristics determinedby Piper. It has not been cleared or approved by the Foodand Drug Administration.PATIENT WAS FASTINGPERFORMED BY: Celaton[address] [id number] BY: CelatonJersey Shore University Medical CenterKrmaxz9671 [facility] [id number] Neutrophils/100 WBC (Bld) 55 % Normal [facility] Work Phone: Comment on above: Test(s) 799528-NDL-H ; 755832-OSO-Z; 121931-Yxcoznhoycphn; 272990-Vwgldllcceq, Total; 304256-HDA-V (Total); 067803-Ofqfw LDL-P; 350666-KOJ Size; 876751-IH-VB Scorewas developed and its performance characteristics determinedby Piper. It has not been cleared or approved by the Foodand Drug Administration.PATIENT WAS FASTINGPERFORMED BY: AdNear [address] [id number] BY: IKOTECH Yyuvkz6[address] [facility] [id number] Platelets (Bld) [#/Vol] 209 {x10E3/uL} Normal 150-450 [facility] Work Phone: Comment on above: Test(s) 415447-ZDP-A ; 110622-JLK-G; 240986-Wimuaytzlsxrv; 360553-Gmtpqkzridv, Total; 913097-KHS-O (Total); 924645-Schuh LDL-P; 495710-BRB Size; 903143-BK-DD Scorewas developed and its performance characteristics determinedby Piper. It has not been cleared or approved by the Foodand Drug Administration.PATIENT WAS FASTINGPERFORMED BY: AdNear [address] [id number] BY: IKOTECH Etvbbs01[address] [facility] [id number] Platelets (Bld) [#/Vol] 209 10*3/uL Normal 150-450 [facility]; [facility] Work Phone: Comment on above: Test(s) 146516-EPX-J ; 140920-JMX-C; 918840-Tvisuoufpdxdi; 257716-Ulpuhjmmdbj, Total; 885772-NJR-H (Total); 516891-Ekldy LDL-P; 610843-VDO Size; 574331-LV-OJ Scorewas developed and its performance characteristics determinedby Piper. It has not been cleared or approved by the Foodand Drug Administration.PATIENT WAS FASTINGPERFORMED BY: Cover Lockscreenton1447 [facility] [id number] BY: Solicore[address] [facility] [id number] RBC (Bld) [#/Vol] 5.02 {x10E6/uL} Normal 4.14-5.80 [facility] Internal Medicine Work Phone: Comment on above: Test(s) 963457-JWL-K ; 935526-OWX-P; 357258-Rmxzfzufipdfr; 030002-Hphvyhlaisr, Total; 860146-ZFH-P (Total); 253057-Hotab LDL-P; 108187-EUJ Size; 668109-AE-SA Scorewas developed and its performance characteristics determinedby Piper. It has not been cleared or approved by the Foodand Drug Administration.PATIENT WAS FASTINGPERFORMED BY: Cover Lockscreen[address] [id number] BY: Solicore[address] [facility] [id number] RBC (Bld) [#/Vol] 5.02 10*6/uL Normal 4.14-5.80 [facility] Internal Medicine; [facility] Internal Medicine Work Phone: Comment on above: Test(s) 766716-UCC-V ; 451085-HBH-Q; 612626-Dpxcsbqjyblmt; 692867-Hecrazswaqu, Total; 277565-ZTE-N (Total); 086330-Aoipq LDL-P; 293771-GVD Size; 530947-SY-VO Scorewas developed and its performance characteristics determinedby Piper. It has not been cleared or approved by the Foodand Drug Administration.PATIENT WAS FASTINGPERFORMED BY: AdNear [address] [id number] BY: Kaazinglin[address] [facility] [id number] WBC (Bld) [#/Vol] 28.1 {x10E3/uL} Abnormal 3.4-10.8 [facility] Internal Medicine Work Phone: Comment on above: Test(s) 146480-FBG-K ; 753529-QCP-U; 539984-Gfthcapchgmao; 533444-Zqxpdquaman, Total; 889775-VEA-F (Total); 744301-Bfgoz LDL-P; 592968-QFV Size; 600230-OP-TD Scorewas developed and its performance characteristics determinedby Piper. It has not been cleared or approved by the Foodand Drug Administration.PATIENT WAS FASTINGPERFORMED BY: AdNear [address] [id number] BY: [facility] [facility] [id number] WBC (Bld) [#/Vol] 28.1 10*3/uL Abnormal 3.4-10.8 [facility] Internal Medicine; [facility] Work Phone: Comment on above: Test(s) 662996-YFW-G ; 028511-RZO-P; 682474-Ovqwgzzzbnrcq; 086446-Bhiqlrkqtew, Total; 936559-VNR-A (Total); 710411-Pcfry LDL-P; 811448-CTD Size; 654840-AE-GB Scorewas developed and its performance characteristics determinedby Piper. It has not been cleared or approved by the Foodand Drug Administration.PATIENT WAS FASTINGPERFORMED BY: AdNear [address] [id number] BY: IKOTECH Eydzpw9[address] [facility] [id number] METABOLIC PANEL, COMPREHENSI VE (02965)Ordered By: Machine Operator on 04-26-2020 Albumin [Mass/Vol] 4.3 g/dL Normal 3.8-4.9 [facility] Internal Medicine Work Phone: Comment on above: Test(s) 774831-UJP-X ; 955074-YRM-B; 982070-Vuccsozttsdgt; 777864-Xhcrvqjhjlo, Total; 240017-NRH-D (Total); 268837-Bbhhm LDL-P; 147956-GZC Size; 522892-RM-BD Scorewas developed and its performance characteristics determinedby Piper. It has not been cleared or approved by the Foodand Drug Administration.PATIENT WAS FASTINGPERFORMED BY: AdNear [address] [id number] BY: CelatonJersey Shore University Medical CenterIbmhwm27[address] [facility] [id number] Albumin/Globulin [Mass ratio] 1.6 {ratio} Normal 1.2-2.2 [facility] Work Phone: Comment on above: Test(s) 730152-WBA-O ; 277225-MNM-U; 367796-Gxxattdsqusqs; 636765-Nwsahxaltyk, Total; 559150-WFK-P (Total); 592975-Pygan LDL-P; 993581-TTE Size; 728333-RG-ZY Scorewas developed and its performance characteristics determinedby Piper. It has not been cleared or approved by the Foodand Drug Administration.PATIENT WAS FASTINGPERFORMED BY: AdNear [address] [id number] BY: Kaazinglin[address] [facility] [id number] ALP [Catalytic activity/Vol] 79 [iU]/L Normal 39-117 [facility] Work Phone: Comment on above: Test(s) 739721-FTG-X ; 016464-XMR-Y; 710671-Qyecpfnkgzvcg; 651001-Iohsjfidlcy, Total; 586923-HSG-C (Total); 132600-Ilnlm LDL-P; 196610-MMN Size; 693947-OU-SO Scorewas developed and its performance characteristics determinedby Celaton. It has not been cleared or approved by the Foodand Drug Administration.PATIENT WAS FASTINGPERFORMED BY: AdNear [address] [id number] BY: MembersuiteJersey Shore University Medical CenterKcpzoz12[address] [facility] [id number] ALP [Catalytic activity/Vol] 79 U/L Normal 39-117 [facility]; [facility] Work Phone: Comment on above: Test(s) 771475-BJL-Y ; 879434-LWX-R; 440326-Usrhbnzounsfl; 915602-Awpqbcopamc, Total; 596096-TPC-K (Total); 754656-Hgbsp LDL-P; 597721-NMR Size; 184846-LY-ZL Scorewas developed and its performance characteristics determinedby Piper. It has not been cleared or approved by the Foodand Drug Administration.PATIENT WAS FASTINGPERFORMED BY: Celaton[address] [id number] BY: Celaton Srcvci4[address] [facility] [id number] ALT [Catalytic activity/Vol] 29 [iU]/L Normal 0-44 [facility] Work Phone: Comment on above: Test(s) 195330-YAH-D ; 718489-PYB-N; 080847-Ylgkmsiuufzmz; 921353-Dnnqivdygaz, Total; 930889-EYN-V (Total); 917663-Nxqlb LDL-P; 621427-GNA Size; 902850-UU-MF Scorewas developed and its performance characteristics determinedby Piper. It has not been cleared or approved by the Foodand Drug Administration.PATIENT WAS FASTINGPERFORMED BY: AdNear [address] [id number] BY: [facility] [id number] ALT [Catalytic activity/Vol] 29 U/L Normal 0-44 [facility]; [facility] Work Phone: Comment on above: Test(s) 217886-MCB-K ; 094740-KRA-R; 133151-Mxkelsqxnykzx; 631705-Imegluqzjhc, Total; 975739-BUG-S (Total); 123457-Mlnwk LDL-P; 762649-CMT Size; 626906-QL-RZ Scorewas developed and its performance characteristics determinedby Piper. It has not been cleared or approved by the Foodand Drug Administration.PATIENT WAS FASTINGPERFORMED BY: Celaton[address] [id number] BY: Membersuite Upbtuk05[address] [facility] [id number] AST [Catalytic activity/Vol] 22 [iU]/L Normal 0-40 [facility] Work Phone: Comment on above: Test(s) 689917-ODU-G ; 571915-RSB-C; 332539-Rkuffnugzdbnj; 071290-Ntrzuqldzcv, Total; 937432-ZNH-C (Total); 750186-Ondxl LDL-P; 683341-XWB Size; 337865-FQ-SJ Scorewas developed and its performance characteristics determinedby Piper. It has not been cleared or approved by the Foodand Drug Administration.PATIENT WAS FASTINGPERFORMED BY: AdNear [address] [id number] BY: CelatonJersey Shore University Medical CenterXeptne3314 [facility] [id number] AST [Catalytic activity/Vol] 22 U/L Normal 0-40 [facility] Internal Medicine; [facility] Internal Medicine Work Phone: Comment on above: Test(s) 190061-SMT-S ; 404438-QWO-L; 820498-Ckqudwowlmlyp; 075586-Qnsftjzvffp, Total; 377562-RPJ-W (Total); 566280-Wopoz LDL-P; 805157-NML Size; 971559-GY-JJ Scorewas developed and its performance characteristics determinedby Piper. It has not been cleared or approved by the Foodand Drug Administration.PATIENT WAS FASTINGPERFORMED BY: Celaton[address] [id number] BY: CelatonJersey Shore University Medical CenterYfrsjj9294 [facility] [id number] Bilirubin [Mass/Vol] 0.4 mg/dL Normal 0.0-1.2 [facility] Internal Medicine Work Phone: Comment on above: Test(s) 999533-ERN-U ; 129551-OAX-H; 430561-Evywqcohpeubt; 517748-Ssiuutfiwte, Total; 850448-SJO-X (Total); 005950-Usgao LDL-P; 026506-ODD Size; 735663-SQ-PZ Scorewas developed and its performance characteristics determinedby Piper. It has not been cleared or approved by the Foodand Drug Administration.PATIENT WAS FASTINGPERFORMED BY: Engiver[address] [id number] BY: CelatonJersey Shore University Medical CenterTruhws88[address] [facility] [id number] Calcium [Mass/Vol] 9.2 mg/dL Normal 8.7-10.2 [facility] Internal Medicine Work Phone: Comment on above: Test(s) 870936-JED-R ; 553275-CUO-Q; 497643-Nkjqdrangaova; 669467-Rhoqzjpvwzb, Total; 641675-RNV-W (Total); 790946-Luswj LDL-P; 901121-NTQ Size; 817051-IZ-YT Scorewas developed and its performance characteristics determinedby Piper. It has not been cleared or approved by the Foodand Drug Administration.PATIENT WAS FASTINGPERFORMED BY: AdNear [address] [id number] BY: Solicore[address] [facility] [id number] Chloride [Moles/Vol] 104 mmol/L Normal 96-106 [facility] Internal Medicine Work Phone: Comment on above: Test(s) 135775-YLU-N ; 814352-ZCQ-I; 977415-Rokkhveanndai; 579956-Ytziupcaegf, Total; 137371-YZU-T (Total); 041192-Wjvit LDL-P; 602884-UKU Size; 710481-FC-YD Scorewas developed and its performance characteristics determinedby Piper. It has not been cleared or approved by the Foodand Drug Administration.PATIENT WAS FASTINGPERFORMED BY: Engiver[address] [id number] BY: CelatonJersey Shore University Medical CenterSbfevr07[address] [facility] [id number] CO2 [Moles/Vol] 25 mmol/L Normal 20-29 [facility] Internal Medicine Work Phone: Comment on above: Test(s) 082041-HOX-P ; 124665-RAU-E; 146644-Huiollqwhoiga; 838481-Wmrqanursfa, Total; 715337-BZU-K (Total); 982776-Tjlnl LDL-P; 571855-OSE Size; 862659-MN-JP Scorewas developed and its performance characteristics determinedby Piper. It has not been cleared or approved by the Foodand Drug Administration.PATIENT WAS FASTINGPERFORMED BY: Cover Lockscreen[address] [id number] BY: IKOTECH Plhxpw4[address] [facility] [id number] Creatinine [Mass/Vol] 0.84 mg/dL Normal 0.76-1.27 [facility] Work Phone: Comment on above: Test(s) 671871-YSI-G ; 604871-YFK-P; 518960-Vtfvxajvbucak; 022079-Lfsemaorsrm, Total; 297721-IZV-H (Total); 075111-Qtwaj LDL-P; 988783-HFV Size; 327114-FG-MC Scorewas developed and its performance characteristics determinedby Piper. It has not been cleared or approved by the Foodand Drug Administration.PATIENT WAS FASTINGPERFORMED BY: AdNear [address] [id number] BY: IKOTECH Nwcieq86[address] [facility] [id number] GFR/1.73 sq M predicted among blacks CKD-EPI (S/P/Bld) [Vol rate/Area] 111 mL/min/1.73 Normal [facility] Internal Medicine Work Phone: Comment on above: Test(s) 178521-QLU-L ; 077027-OXS-R; 137720-Wiveudnxrudzi; 063289-Kndzuntijmb, Total; 291977-YTU-D (Total); 129057-Xzqsk LDL-P; 248839-FMV Size; 151413-MJ-ED Scorewas developed and its performance characteristics determinedby Piper. It has not been cleared or approved by the Foodand Drug Administration.PATIENT WAS FASTINGPERFORMED BY: AdNear [address] [id number] BY: Celaton Iutpml7047 [facility] [id number] GFR/1.73 sq M predicted among non-blacks CKD-EPI (S/P/Bld) [Vol rate/Area] 96 mL/min/1.73 Normal [facility] Work Phone: Comment on above: Test(s) 038463-GZQ-O ; 876367-GQT-E; 486906-Wdxpuqsmdtiry; 322335-Qskfpkarkbq, Total; 982891-XST-B (Total); 562193-Douma LDL-P; 928395-TSN Size; 125767-CQ-KO Scorewas developed and its performance characteristics determinedby Piper. It has not been cleared or approved by the Foodand Drug Administration.PATIENT WAS FASTINGPERFORMED BY: AdNear [address] [id number] BY: Solicore[address] [facility] [id number] Globulin (S) [Mass/Vol] 2.7 g/dL Normal 1.5-4.5 [facility] Internal [facility] Work Phone: Comment on above: Test(s) 089501-HNV-C ; 605910-BBN-H; 968037-Yezuirjynhzjm; 331628-Vkymscxxyng, Total; 659012-XYO-F (Total); 147297-Fdbhf LDL-P; 322377-BEU Size; 807849-KY-UP Scorewas developed and its performance characteristics determinedby Piper. It has not been cleared or approved by the Foodand Drug Administration.PATIENT WAS FASTINGPERFORMED BY: AdNear [address] [id number] BY: Solicore[address] [facility] [id number] Glucose [Mass/Vol] 116 mg/dL Abnormal 65-99 [facility] Internal Medicine Work Phone: Comment on above: Test(s) 075981-FWG-C ; 578019-YYU-G; 237054-Igjjxukdgieau; 697638-Hkpidbfcpev, Total; 135705-UHD-P (Total); 943931-Ppvca LDL-P; 421390-NRN Size; 810267-JI-PA Scorewas developed and its performance characteristics determinedby Piper. It has not been cleared or approved by the Foodand Drug Administration.PATIENT WAS FASTINGPERFORMED BY: Cover Lockscreen[address] [id number] BY: IKOTECH Knkkek[address] [facility] [id number] Potassium [Moles/Vol] 4.5 mmol/L Normal 3.5-5.2 [facility] Internal Medicine Work Phone: Comment on above: Test(s) 387793-CSA-D ; 321721-VOI-J; 253709-Zlwnrmbcnzwqt; 301254-Zhlvkajtaal, Total; 081522-CDX-D (Total); 178099-Uctvu LDL-P; 411128-QPC Size; 356781-WL-KU Scorewas developed and its performance characteristics determinedby Piper. It has not been cleared or approved by the Foodand Drug Administration.PATIENT WAS FASTINGPERFORMED BY: AdNear [address] [id number] BY: IKOTECH Bboiae5[address] [facility] [id number] Protein [Mass/Vol] 7.0 g/dL Normal 6.0-8.5 [facility] Internal Medicine Work Phone: Comment on above: Test(s) 891621-JDE-C ; 057033-GEO-X; 235182-Kkvcgacplbrsq; 298352-Yyuekyzdfrb, Total; 856074-CQO-A (Total); 522201-Namym LDL-P; 797598-URO Size; 382351-WH-VE Scorewas developed and its performance characteristics determinedby Piper. It has not been cleared or approved by the Foodand Drug Administration.PATIENT WAS FASTINGPERFORMED BY: AdNear [address] [id number] BY: IKOTECH Bosycw[address] [facility] [id number] Sodium [Moles/Vol] 143 mmol/L Normal 134-144 [facility] Internal Medicine Work Phone: Comment on above: Test(s) 472521-PWR-R ; 272509-XRN-H; 939720-Wukqtfjgsbkwg; 774066-Lfnnuehlxlu, Total; 428661-YKN-Z (Total); 859554-Yockl LDL-P; 580698-ZKN Size; 822422-TE-CP Scorewas developed and its performance characteristics determinedby Celaton. It has not been cleared or approved by the Foodand Drug Administration.PATIENT WAS FASTINGPERFORMED BY: AdNear [address] [id number] BY: IKOTECH Hpoysb47[address] [facility] [id number] Urea nitrogen [Mass/Vol] 11 mg/dL Normal 6-24 [facility] Internal Medicine Work Phone: Comment on above: Test(s) 359084-AMG-E ; 145150-GSB-F; 572421-Flezgoqposovo; 498356-Ptpywpcfqoq, Total; 944913-TAL-A (Total); 866367-Kcoje LDL-P; 727935-AXC Size; 014776-KY-FM Scorewas developed and its performance characteristics determinedby Piper. It has not been cleared or approved by the Foodand Drug Administration.PATIENT WAS FASTINGPERFORMED BY: AdNear [address] [id number] BY: IKOTECH Wzsihm04[address] [facility] [id number] Urea nitrogen/Creatinine [Mass ratio] 13 mg/mg Normal 9-20 Comprehensive Internal Medicine Work Phone: Comment on above: Test(s) 593980-MAX-T ; 624748-NNH-H; 020553-Sssmxcjugevsx; 936143-Uwkxapoqtkf, Total; 580579-LDU-E (Total); 153241-Jcwhu LDL-P; 151873-NWG Size; 361308-HZ-NB Scorewas developed and its performance characteristics determinedby Piper. It has not been cleared or approved by the Foodand Drug Administration.PATIENT WAS FASTINGPERFORMED BY: Engiver[address] [id number] BY: CelatonJersey Shore University Medical CenterHzzqxj4954 [facility] [id number] MICROALBUMINOrdered By: Syst em Headend Technician on 04-26-2020 Albumin DL <= 20 mg/L (U) [Mass/Vol] 8.7 ug/mL Normal [facility] Work Phone: Comment on above: Test(s) 609356-LCU-R ; 607747-WKQ-D; 434539-Ozzkmxkrlrpaw; 537281-Hpfjdauwlif, Total; 163590-BZV-V (Total); 807002-Fdnty LDL-P; 145528-WME Size; 035261-FM-OV Scorewas developed and its performance characteristics determinedby Piper. It has not been cleared or approved by the Foodand Drug Administration.PATIENT WAS FASTINGPERFORMED BY: Engiver[address] [id number] BY: CelatonJersey Shore University Medical CenterGqdxna[address] [place] [address] [id number] Albumin/Creatinine (U) [Mass ratio] 7 {mg/g_creat} Normal 0-29 [facility] Work Phone: Comment on above: Normal: 0 - 29 Moder ately increased: 30 - 300 Severely increased: >300 Please note reference interval change Test(s) 215310-ABA-K ; 634948-INS-X; 335336-Rifmhkgvrnkig; 192580-Qeeuijridja, Total; 238369-YME-J (Total); 037377-Wfcbs LDL-P; 053671-DDK Size; 697600-HX-SE Scorewas developed and its performance characteristics determinedby Celaton. It has not been cleared or approved by the Foodand Drug Administration.PATIENT WAS FASTINGPERFORMED BY: Engiver[address] [id number] BY: CelatonLaurie [place] 3672870 [facility] [id number] Creatinine (U) [Mass/Vol] 121.5 mg/dL Normal [facility] Work Phone: Comment on above: Test(s) 271030-ULZ-K ; 680913-PZR-Y; 682448-Ufiqvyxnbdlfo; 270357-Ngrdigwssoq, Total; 520661-NXL-O (Total); 067147-Xibiz LDL-P; 854287-LJA Size; 844186-ID-UI Scorewas developed and its performance characteristics determinedby Piper. It has not been cleared or approved by the Foodand Drug Administration.PATIENT WAS FASTINGPERFORMED BY: [employer] [place] [address] [id number] BY: IKOTECH Zycuts9[address] [facility] [id number] NMR Profile (40243)Ordered B y: Machine Operator on 04-26-2020 Cholesterol [Mass/Vol] 142 mg/dL Normal 100-199 [facility] Internal Medicine Work Phone: Comment on above: Test(s) 755109-YJI-J ; 168315-RYQ-I; 679118-Uqvwwdiabbgwm; 777534-Rarkmftjoen, Total; 339744-TXZ-M (Total); 978649-Ovfup LDL-P; 641673-YYO Size; 877137-SK-KW Scorewas developed and its performance characteristics determinedby Piper. It has not been cleared or approved by the Foodand Drug Administration.PATIENT WAS FASTINGPERFORMED BY: Cover Lockscreen[address] [id number] BY: IKOTECH Jqgezx9401 [facility] [id number] Lipoprotein.alpha [Moles/Vol] 31.2 umol/L Normal [facility] Internal Medicine Work Phone: Comment on above: Test(s) 640148-JAJ-B ; 322442-GEK-U; 127290-Htkcnyuadoqjv; 949780-Zctlizncbgs, Total; 624414-ZHG-K (Total); 997806-Dccny LDL-P; 316519-TKS Size; 165176-PU-OV Scorewas developed and its performance characteristics determinedby Piper. It has not been cleared or approved by the Foodand Drug Administration.PATIENT WAS FASTINGPERFORMED BY: Piper [address] [id number] BY: Piper Pnhvhy3901 [facility] [id number] Lipoprotein.beta.subpar ticle [Entitic length] 19.6 nm Abnormal [...] not afterLDL-P is taken into account. Test(s) 351915-XJY-T ; 724828-OKS-L; 725809-Lvqbafblppabq; 096457-Pkifixvnkqf, Total; 941181-UWG-T (Total); 034384-Zmhxd LDL-P; 539515-JWQ Size; 645725-LL-OB Scorewas developed and its performance characteristics determinedby Piper. It has not been cleared or approved by the Foodand Drug Administration.PATIENT WAS FASTINGPERFORMED BY: Piper [address] [id number] BY: Celaton Itrnzk6647 [facility] [id number] Lipoprotein.beta.subpar ticle [Moles/Vol] 711 nmol/L Normal [facility] Work Phone: Comment on above: Low < 1000 Moderate 1000 - 1299 Borderline-High 1300 - 1599 High 1600 - 2000 Very High > 2000 Test(s) 530495-FNN-L ; 965015-PBZ-C; 852342-Qlevffudshdsu; 956444-Xcuakrnuswu, Total; 597549-KJN-I (Total); 430802-Tsylk LDL-P; 910501-MKD Size; 418903-HW-HF Scorewas developed and its performance characteristics determinedby Piper. It has not been cleared or approved by the Foodand Drug Administration.PATIENT WAS FASTINGPERFORMED BY: AdNear [address] [id number] BY: Solicore[address] [facility] [id number] Lipoprotein.beta.subpar ticle.small [Moles/Vol] 545 nmol/L Abnormal Comprehe nsive Internal Medicine Work Phone: Comment on above: Test(s) 784193-UGF-G ; 689772-JEC-M; 053600-Hreqlgkjdhzkb; 182062-Umvydqyzshb, Total; 747521-EZU-V (Total); 527755-Wgiwu LDL-P; 743648-HZQ Size; 775823-BX-SG Scorewas developed and its performance characteristics determinedby Piper. It has not been cleared or approved by the Foodand Drug Administration.PATIENT WAS FASTINGPERFORMED BY: Celaton[address] [id number] BY: Membersuite Purqdf2803 [facility] [id number] Triglyceride [Mass/Vol] 326 mg/dL Abnormal 0-149 C omprehensive Internal Medicine Work Phone: Comment on above: Test(s) 654185-ZTU-S ; 089399-WSJ-Y; 673721-Ndxrqmnhgvffv; 015625-Ncyhkgecpyf, Total; 641555-NTV-H (Total); 877986-Ndcdl LDL-P; 589754-SQA Size; 215341-HB-OD Scorewas developed and its performance characteristics determinedby Piper. It has not been cleared or approved by the Foodand Drug Administration.PATIENT WAS FASTINGPERFORMED BY: Cover Lockscreen[address] [id number] BY: CelatonJersey Shore University Medical CenterBgngsv2935 [facility] [id number] NMR Profile (66352) 37 mg/dL Abnormal [facility] Internal Medicine Work Phone: Comment on above: Test(s) 449523-YSM-L ; 232190-TGP-B; 988855-Rlogobulgvmmv; 829337-Rfhusxhcsbx, Total; 224648-VAZ-L (Total); 818032-Nwalb LDL-P; 979742-UMA Size; 969174-CT-CT Scorewas developed and its performance characteristics determinedby Piper. It has not been cleared or approved by the Foodand Drug Administration.PATIENT WAS FASTINGPERFORMED BY: AdNear [address] [id number] BY: IKOTECH Ivevzq1697 [facility] [id number] NMR Profile (83751) 55 mg/dL Normal 0-99 [facility] Internal Medicine Work Phone: Comment on above: . Optimal < 100 Abov e optimal 100 - 129 Borderline 130 - 159 High 160 - 189 Very high > 189 . Test(s) 898601-UKD-G ; 183895-ENT-C; 760377-Vgyxopodgubcz; 619957-Awfagfagqae, Total; 254717-IFU-F (Total); 514894-Btqnt LDL-P; 537691-CYL Size; 074634-BK-VO Scorewas developed and its performance characteristics determinedby Piper. It has not been cleared or approved by the Foodand Drug Administration.PATIENT WAS FASTINGPERFORMED BY: Cover Lockscreen[address] [id number] BY: Solicore[address] [facility] [id number] NMR Profile (95186) 326 mg/dL Abnormal 0-149 Compr ehensive Internal Medicine; [facility] Work Phone: NMR Profile (44606) 142 mg/dL Normal 100-199 Compr ehensive Internal Medicine; [facility] Work Phone: TSH (68856)Ordered By: Maginee m Headend Technician on 04-26-2020 TSH Qn 2.490 {uIU/mL} Normal 0.450-4.50 0 [facility] Work Phone: Comment on above: Test(s) 017627-TQP-H ; 524024-MTG-X; 988106-Mnrjnhuepqoip; 251107-Dglxhrppvtw, Total; 449838-LQH-Q (Total); 774326-Rapug LDL-P; 107891-EWY Size; 332021-EB-DM Scorewas developed and its performance characteristics determinedby Piper. It has not been cleared or approved by the Foodand Drug Administration.PATIENT WAS FASTINGPERFORMED BY: Cover Lockscreen[address] [id number] BY: Solicore6370 [facility] [id number] URINALYSIS, W/ MICRO (41587) Ordered By: Machine Operator on 04-26-2020 Appearance (U) Clear Normal Comprehens arianna Internal Medicine Work Phone: Comment on above: Test(s) 066032-NVJ-S ; 146983-QFP-R; 068848-Duenxuejkammm; 674928-Czwbipdlypf, Total; 295933-JCV-B (Total); 603380-Ugydb LDL-P; 670666-FIJ Size; 599149-CI-RK Scorewas developed and its performance characteristics determinedby Piper. It has not been cleared or approved by the Foodand Drug Administration.PATIENT WAS FASTINGPERFORMED BY: AdNear [address] [id number] BY: Solicore[address] [facility] [id number] Bilirubin Ql (U) Negative Normal Comprehe nsive Internal Medicine Work Phone: Comment on above: Test(s) 114657-HQC-H ; 865076-CWF-O; 203741-Dvcygqyheutlv; 856624-Ktknlsvzlza, Total; 085475-NLI-I (Total); 965782-Mqwso LDL-P; 070979-TWZ Size; 967675-OI-ED Scorewas developed and its performance characteristics determinedby Piper. It has not been cleared or approved by the Foodand Drug Administration.PATIENT WAS FASTINGPERFORMED BY: AdNear [address] [id number] BY: CelatonJersey Shore University Medical CenterBapstm95[address] [facility] [id number] Bilirubin Ql (U) Negative Normal Comprehe nsive Internal Medicine; [facility] Work Phone: Comment on above: Test(s) 221568-GPW-F ; 096745-ESP-U; 527873-Ywniivlojqgtq; 222044-Jsvdssxcukv, Total; 126394-XZV-I (Total); 428004-Xgoru LDL-P; 778612-MQS Size; 859266-TO-QA Scorewas developed and its performance characteristics determinedby Piper. It has not been cleared or approved by the Foodand Drug Administration.PATIENT WAS FASTINGPERFORMED BY: [employer]Near [address] [id number] BY: CelatonJersey Shore University Medical CenterSgjqvc7740 [facility] [id number] Color (U) Yellow Normal [facility] Work Phone: Comment on above: Test(s) 621325-IEN-K ; 867564-YNR-Y; 517840-Fahpwkdthaelj; 013550-Thazlwvveye, Total; 145723-LDL-Y (Total); 542765-Awrmy LDL-P; 209150-PMF Size; 829236-NH-VI Scorewas developed and its performance characteristics determinedby Piper. It has not been cleared or approved by the Foodand Drug Administration.PATIENT WAS FASTINGPERFORMED BY: BN [employer] [id number] BY: [place] 0866370 [facility] [id number] Glucose Ql (U) Negative Normal Comprehens arianna Internal Medicine Work Phone: Comment on above: Test(s) 742756-OOZ-D ; 635649-GQN-O; 809697-Grzwzjymivhgp; 455248-Yshjjdibcvl, Total; 343090-ZME-N (Total); 498682-Cbonn LDL-P; 826545-ZAO Size; 946100-SH-OO Scorewas developed and its performance characteristics determinedby Celaton. It has not been cleared or approved by the Foodand Drug Administration.PATIENT WAS FASTINGPERFORMED BY: Celaton[address] [id number] BY: CelatonLaurie [place] 3672870 [facility] [id number] Glucose Ql (U) Negative Normal Comprehens arianna Internal Medicine; [facility] Internal Medicine Work Phone: Comment on above: Test(s) 219618-TQC-L ; 148336-DLN-N; 376179-Ngxudcwrngceb; 253620-Qdxdlymjeqi, Total; 654201-UDY-K (Total); 845899-Zompw LDL-P; 935734-INS Size; 662422-QP-SR Scorewas developed and its performance characteristics determinedby Celaton. It has not been cleared or approved by the Foodand Drug Administration.PATIENT WAS FASTINGPERFORMED BY: [employer] [id number] BY: [facility] [facility] [id number] Hemoglobin Ql (U) Negative Normal Compreh ensive Internal Medicine Work Phone: Comment on above: Test(s) 263493-FVV-H ; 789796-DYO-A; 568975-Mhvwrnnlxmuea; 157060-Opzxpzbfqpi, Total; 031097-WMD-T (Total); 400962-Yralb LDL-P; 007638-GYS Size; 060498-PK-WP Scorewas developed and its performance characteristics determinedby Piper. It has not been cleared or approved by the Foodand Drug Administration.PATIENT WAS FASTINGPERFORMED BY: Celaton[address] [id number] BY: Celaton Qbktng9869 [facility] [id number] Hemoglobin Ql (U) Negative Normal Compreh ensive Internal Medicine; [facility] Work Phone: Comment on above: Test(s) 565374-MDE-K ; 451069-LFH-C; 332129-Ofytxtiqgmlwl; 057321-Zzbzwqmuspl, Total; 825784-CGT-C (Total); 897242-Buymj LDL-P; 850769-YRP Size; 735163-KR-PP Scorewas developed and its performance characteristics determinedby Piper. It has not been cleared or approved by the Foodand Drug Administration.PATIENT WAS FASTINGPERFORMED BY: [employer]Near [address] [id number] BY: [facility] [facility] [id number] Ketones Ql (U) Negative Normal Comprehens arianna Internal Medicine Work Phone: Comment on above: Test(s) 978158-GBR-Z ; 586467-ZII-F; 476214-Lgrsanvwkjfsg; 356966-Ifjbkgkdszl, Total; 416937-BXH-U (Total); 571324-Yxwur LDL-P; 589986-MAL Size; 227798-AH-IE Scorewas developed and its performance characteristics determinedby Piper. It has not been cleared or approved by the Foodand Drug Administration.PATIENT WAS FASTINGPERFORMED BY: Piper [address] [id number] BY: CelatonJersey Shore University Medical CenterSpqzws9902 [facility] [id number] Ketones Ql (U) Negative Normal Comprehens arianna Internal Medicine; [facility] Work Phone: Comment on above: Test(s) 453282-LJA-U ; 366340-DCZ-T; 545805-Nkkgsevzxvdnz; 346246-Awohqkrgpvb, Total; 852504-KFS-Z (Total); 586400-Ubtet LDL-P; 758239-JZJ Size; 155672-XF-RT Scorewas developed and its performance characteristics determinedby Piper. It has not been cleared or approved by the Foodand Drug Administration.PATIENT WAS FASTINGPERFORMED BY: [employer]Near [address] [id number] BY: [employer]70 [facility] CompanyCritical access hospital [id number] Leukocyte esterase Test strip Ql (U) Negative Normal [facility] Work Phone: Comment on above: Test(s) 160199-FWG-Z ; 736183-SNJ-Z; 887568-Vrdjadlwwvxgw; 796799-Xfzdvubutan, Total; 278174-DHJ-N (Total); 393548-Kkufb LDL-P; 190024-YGB Size; 862589-UG-LP Scorewas developed and its performance characteristics determinedby Piper. It has not been cleared or approved by the Foodand Drug Administration.PATIENT WAS FASTINGPERFORMED BY: [employer] [address] [id number] BY: [facility]70 [facility] CompanyCritical access hospital [id number] Leukocyte esterase Test strip Ql (U) Negative Normal [facility]; [facility] Work Phone: Comment on above: Test(s) 653482-MLH-W ; 338956-OAJ-H; 498331-Nfbcmgsndlslp; 824044-Rvviylwdwta, Total; 527346-WFN-X (Total); 158515-Ywhvs LDL-P; 649248-OJC Size; 782749-KC-WA Scorewas developed and its performance characteristics determinedby Piper. It has not been cleared or approved by the Foodand Drug Administration.PATIENT WAS FASTINGPERFORMED BY: [employer]Near [address] [id number] BY: [facility]70 [facility] [id number] Microscopic observation LM Nom (Urine sed) MICRON Normal [facility] Work Phone: Comment on above: Microscopic follows if indicated. Test(s) 496500-LJM-Q ; 334507-AFZ-D; 457803-Rkcwnooqnhiwb; 591410-Adggjudtbnd, Total; 567954-MOL-A (Total); 872324-Xzxod LDL-P; 036584-WLO Size; 514459-OT-OO Scorewas developed and its performance characteristics determinedby Piper. It has not been cleared or approved by the Foodand Drug Administration.PATIENT WAS FASTINGPERFORMED BY: Cover Lockscreen[address] [id number] BY: [facility] [facility] [id number] Microscopic observation LM Nom (Urine sed) See below: Normal [facility] Work Phone: Comment on above: Microscopic was lynnette cated and was performed. Test(s) 757835-JEK-A ; 612891-TCD-T; 265138-Zysqxdmygcnge; 654093-Tjoruksjrlx, Total; 205418-CZR-U (Total); 070283-Suwnm LDL-P; 478759-HTA Size; 079859-FH-BT Scorewas developed and its performance characteristics determinedby Piper. It has not been cleared or approved by the Foodand Drug Administration.PATIENT WAS FASTINGPERFORMED BY: AdNear [address] [id number] BY: IKOTECH Chqadt0697 [facility] [id number] Nitrite Ql (U) Negative Normal Comprehens arianna Internal Medicine Work Phone: Comment on above: Test(s) 575179-SYB-Y ; 438386-RGQ-V; 031533-Cwwjwioovbsze; 487395-Rgksfpqxlxq, Total; 852888-QBW-Z (Total); 173364-Rmuaa LDL-P; 948396-CAD Size; 336112-SS-EG Scorewas developed and its performance characteristics determinedby Piper. It has not been cleared or approved by the Foodand Drug Administration.PATIENT WAS FASTINGPERFORMED BY: Engiver[address] [id number] BY: CelatonUNM Psychiatric CenterXynyqz4816 [facility] [id number] Nitrite Ql (U) Negative Normal Comprehens arianna Internal Medicine; [facility] Work Phone: Comment on above: Test(s) 674652-XJV-A ; 574454-KEE-S; 562900-Tslvggocianra; 280898-Yzaujhprouy, Total; 672372-GZO-D (Total); 896153-Fqiig LDL-P; 416384-KHR Size; 956575-XU-XP Scorewas developed and its performance characteristics determinedby Piper. It has not been cleared or approved by the Foodand Drug Administration.PATIENT WAS FASTINGPERFORMED BY: AdNear [address] [id number] BY: [facility]70 [facility] [id number] pH (U) 8.0 [pH] Abnormal 5.0-7.5 [facility] Work Phone: Comment on above: Test(s) 818681-RDL-M ; 871194-TZT-B; 221991-Bbgaagdjkuuyp; 219929-Obyudvyxhir, Total; 568132-GQF-E (Total); 180970-Lsiau LDL-P; 717275-VNG Size; 500772-RH-NG Scorewas developed and its performance characteristics determinedby Piper. It has not been cleared or approved by the Foodand Drug Administration.PATIENT WAS FASTINGPERFORMED BY: [employer] [address] [id number] BY: Membersuite Mmhtch4714 [facility] [id number] Protein Ql (U) Negative Normal Comprehens arianna Internal Medicine Work Phone: Comment on above: Test(s) 402442-LDR-F ; 601604-ZKU-V; 662783-Hnzzeloveiwij; 776218-Bnmgqywbciq, Total; 503516-FZW-F (Total); 703685-Pkpwb LDL-P; 342198-NYV Size; 992818-UX-SI Scorewas developed and its performance characteristics determinedby Piper. It has not been cleared or approved by the Foodand Drug Administration.PATIENT WAS FASTINGPERFORMED BY: [employer] [address] [id number] BY: [facility]70 [facility] [id number] Protein Ql (U) Negative Normal Comprehens arianna Internal Medicine; [facility] Work Phone: Comment on above: Test(s) 580432-OSV-S ; 959054-VNY-C; 088337-Qljssvegbsodk; 224007-Yizghgzjphb, Total; 115672-HDI-Z (Total); 239565-Udcxk LDL-P; 307506-AEA Size; 080229-KK-DC Scorewas developed and its performance characteristics determinedby Piper. It has not been cleared or approved by the Foodand Drug Administration.PATIENT WAS FASTINGPERFORMED BY: [employer]Near [address] [id number] BY: [facility]70 [facility] [id number] Specific gravity (U) [Rel density] 1.018 1 Normal 1.005-1.03 0 [facility] Work Phone: Comment on above: Test(s) 987592-NNW-M ; 482910-HZA-W; 407227-Zfrfnkllephvy; 915931-Axeuanaaqyy, Total; 094243-NTV-R (Total); 548549-Rgiyl LDL-P; 100727-WJS Size; 487135-JR-UA Scorewas developed and its performance characteristics determinedby Piper. It has not been cleared or approved by the Foodand Drug Administration.PATIENT WAS FASTINGPERFORMED BY: [employer] [address] [id number] BY: Solicore6370 [facility] [id number] Urobilinogen (U) [Mass/Vol] 0.2 mg/dL Normal 0.2-1.0 [facility]; [facility] Work Phone: Comment on above: Test(s) 929281-IXD-M ; 489895-NQH-R; 988490-Squzpvsnasyob; 570191-Sbqmirkrzcn, Total; 307735-QNU-J (Total); 789078-Yhita LDL-P; 064553-FPP Size; 262626-SU-FD Scorewas developed and its performance characteristics determinedby Piper. It has not been cleared or approved by the Foodand Drug Administration.PATIENT WAS FASTINGPERFORMED BY: [employer] [facility] [id number] BY: [facility]70 [facility] Holding CompanyCritical access hospital [id number] Urobilinogen Test strip (U) [Mass/Vol] 0.2 mg/dL Normal 0.2-1.0 [facility] Internal Medicine Work Phone: Comment on above: Test(s) 172579-IES-R ; 012656-TTU-P; 004011-Ypskrrlkvuqau; 710303-Cenxhdafsim, Total; 055010-KFP-Q (Total); 524317-Wjbzt LDL-P; 411308-GGM Size; 544929-ZH-HP Scorewas developed and its performance characteristics determinedby Piper. It has not been cleared or approved by the Foodand Drug Administration.PATIENT WAS FASTINGPERFORMED BY: [employer] [facility] [id number] BY: Solicore[address] [facility] [id number] Erythrocyte sedimentation ra leonard 03-07-2020 ESR (Bld) [Velocity] 14 mm/h 0-20 [facility] No Panel Informationon 03-07 Prostate Specific Antigen Screen 2.19 ng/mL 0.00-4.00 [facility] Comment on above: This test was perfor med using the TPSA assay method for theBrightQubeImagiin. chemistry system. Values obtained with differentassay methods cannot be used interchangably.When changing PSA assays in the course of monitoring apatient, additional sequential testing should be carriedout to confirm baseline values. Thin prep Papanicolaou smear with manual screeningon 03-07-2020 Thin prep Papanicolaou smear with manual screening 248 U/L 87-241 [facility] CBC with auto diff (58994)Or dered By: Machine Operator on 02-11-2020 Basophils (Bld) [#/Vol] 0.7 {x10E3/uL} Abnormal 0.0-0.2 [facility] Work Phone: Comment on above: PATIENT NOT FASTINGP ERFORMED BY: CB [facility] Ildqlz2574 [facility] [id number] BY: CLCIN [facility] [place] [address] [facility] [address] [id number] Basophils (Bld) [#/Vol] 0.7 10*3/uL Abnormal 0.0-0.2 [facility]; [facility] Work Phone: Comment on above: PATIENT NOT FASTINGP ERFORMED BY: CB [facility] Qebpts5[address] [facility] [id number] BY: CLCIN [facility] [place] Xipbtibh[address] [facility] [address] [id number] Basophils/100 WBC (Bld) 3 % Normal C omprehensive Internal Medicine Work Phone: Comment on above: PATIENT NOT FASTINGP ERFORMED BY: CB [facility] Rlfcrv98[address] [facility] [id number] BY: CLCIN [facility] Rlpvgcuh70[address] [facility] [address] [id number] Eosinophils (Bld) [#/Vol] 0.4 {x10E3/uL} Normal 0.0-0.4 [facility] Work Phone: Comment on above: PATIENT NOT FASTINGP ERFORMED BY: CB [facility] Llumnd2206 [facility] [id number] BY: CLCIN [facility] [place] Ofdhpblo48768 [address] [facility] [address] [id number] Eosinophils (Bld) [#/Vol] 0.4 10*3/uL Normal 0.0-0.4 [facility]; [facility] Work Phone: Comment on above: PATIENT NOT FASTINGP ERFORMED BY: CB [facility] Wlpshr0305 Haney RoadDublin [place] [id number] BY: CLCIN [facility] [place] [address] [place] [address] [id number] Eosinophils/100 WBC (Bld) 2 % Normal [facility] Work Phone: Comment on above: PATIENT NOT FASTINGP ERFORMED BY: CB [facility] Lfbbkk9736 Haney RoadDusaint james hospital [place] [id number] BY: CLCIN [facility] [place] [address] [facility] [address] [id number] Erythrocyte distribution width (RBC) [Ratio] 13.9 % Normal 11.6-15.4 [facility] Work Phone: Comment on above: PATIENT NOT FASTINGP ERFORMED BY: CB [facility] Hgmedx9304 [address] RoadNew [place] [id number] BY: CLCIN [facility] [place] [address] [facility] [address] [id number] Hematocrit (Bld) [Volume fraction] 45.8 % Normal 37.5-51.0 [facility] Work Phone: Comment on above: PATIENT NOT FASTINGP ERFORMED BY: CB [facility] Apoevu1611 [address]New [place]ford [place] [id number] BY: CLCIN [facility] [place] [address] [facility] [address] [id number] Hemoglobin (Bld) [Mass/Vol] 15.2 g/dL Normal 13.0-17.7 [facility] Work Phone: Comment on above: PATIENT NOT FASTINGP ERFORMED BY: CB [facility] Szeawk1220 [address] RoadDublin [place] [id number] BY: CLCIN [facility] [place] [address] [facility] [address] [id number] Immature cells/100 WBC (Bld) Note Normal [facility] Work Phone: Comment on above: PATIENT NOT FASTINGP ERFORMED BY: TONYA LabCoaida TorresCowamy3885 Haney RoadDublin [place] [id number] BY: CLCIN [facility] [place] Gfvottyr[address] [id number] Lymphocytes (Bld) [#/Vol] 4.8 {x10E3/uL} Abnormal 0.7-3.1 [facility] Work Phone: Comment on above: PATIENT NOT FASTINGP ERFORMED BY: TONYA LabJuliana DavidsonYmmwln1553 [address]aney RoadDublin [place] [id number] BY: CLCIN [facility] [place] Jarqufyu[address] [facility] [address] [id number] Lymphocytes (Bld) [#/Vol] 4.8 10*3/uL Abnormal 0.7-3.1 [facility]; [facility] Work Phone: Comment on above: PATIENT NOT FASTINGP ERFORMED BY: TONYA LabJuliana DavidsonGsendk4510 [address] RoadDuin [place] [id number] BY: CLCIN [facility] [place] Lhdcvpdq[address] [facility] [address] [id number] Lymphocytes/100 WBC (Bld) 22 % Normal [facility] Work Phone: Comment on above: PATIENT NOT FASTINGP ERFORMED BY: TONYA [facility] Bitund3642 [address] RoadDuin [place] [id number] BY: CLCIN [facility] [place] Rvsqicxi96[address] [facility] [address] [id number] MCH (RBC) [Entitic mass] 29.9 pg Normal 26.6-33.0 [facility] Work Phone: Comment on above: PATIENT NOT FASTINGP ERFORMED BY: TONYA [facility] Gejzxg1888 Haney RoadDublin [place] [id number] BY: CLCIN [facility] [place] Cwjxgfee[address] [facility] [address] [id number] MCHC (RBC) [Mass/Vol] 33.2 g/dL Normal 31.5-35.7 [facility] prehensive Internal Medicine Work Phone: Comment on above: PATIENT NOT FASTINGP ERFORMED BY: TONYA [facility] Pjpggf5013 [address]aney RoadDublin [place] [id number] BY: CLCIN [facility] [place] [address] [facility] [address] [id number] MCV (RBC) [Entitic vol] 90 fL Normal 79-97 C ompst. [facility] hospitalensive Internal Medicine Work Phone: Comment on above: PATIENT NOT FASTINGP ERFORMED BY: TONYA [facility] Hfszvp1761 [address] RoadDublin [place] [id number] BY: CLCIN [facility] [place] [address] [facility] 150[place] [id number] Monocytes (Bld) [#/Vol] 1.1 {x10E3/uL} Abnormal 0.1-0.9 [facility] Internal Medicine Work Phone: Comment on above: PATIENT NOT FASTINGP ERFORMED BY: TONYA [facility] Pqkeuo6922 [address] RoadDublin [place] [id number] BY: CLCIN [facility] [place] [address] [facility] 150[place] [id number] Monocytes (Bld) [#/Vol] 1.1 10*3/uL Abnormal 0.1-0.9 [facility]; [facility] Work Phone: Comment on above: PATIENT NOT FASTINGP ERFORMED BY: TONYA [facility] Uwtqqq0800 [address] RoadDublin [place] [id number] BY: CLCIN [facility] [place] [address] [facility] 150[place] [id number] Monocytes/100 WBC (Bld) 5 % Normal C ompst. [facility] hospitalensive Internal [facility] Work Phone: Comment on above: PATIENT NOT FASTINGP ERFORMED BY: TONYA [facility] Abvptl9054 [address] RoadDublin [place] [id number] BY: CLCIN [facility] [place] Helvkwzs[address] [id number] Morphology Miguel (Bld) [Interp] Note: Normal [facility] Work Phone: Comment on above: Manual differential was performed. PATIENT NOT FASTINGP ERFORMED BY: TONYA [facility] Aqlvoi5396 [address]aney RoadDublin [place] [id number] BY: CLCIN [facility] [place] Cuqbbzky[address] [id number] Neutrophils (Bld) [#/Vol] 12.2 {x10E3/uL} Abnormal 1.4-7.0 [facility] Work Phone: Comment on above: PATIENT NOT FASTINGP ERFORMED BY: TONYA [facility] Stepaf9293 [address] RoadDublin [place] [id number] BY: CLCIN [facility] [place] Gynwgihj67[address] [facility] [address] [id number] Neutrophils (Bld) [#/Vol] 12.2 10*3/uL Abnormal 1.4-7.0 [facility]; [facility] Work Phone: Comment on above: PATIENT NOT FASTINGP ERFORMED BY: TONYA LabCoaida Zklhmr5079 [address]aney RoadDublin [place] [id number] BY: CLCIN [facility] [place] Tvzjqdhp[address] [facility] [address] [id number] Neutrophils/100 WBC (Bld) 56 % Normal [facility] Work Phone: Comment on above: PATIENT NOT FASTINGP ERFORMED BY: CB [facility] Wssjad2329 [address] RoadDublin [place] [id number] BY: CLCIN [facility] [place] Qlfnkefa[address] [facility] [address] [id number] Platelets (Bld) [#/Vol] 216 {x10E3/uL} Normal 150-450 [facility] Work Phone: Comment on above: PATIENT NOT FASTINGP ERFORMED BY: CB [facility] Ajvbul2289 [address] RoadDublin [place] [id number] BY: CLCIN [facility] [place] Iuirqwkz[address] [facility] [address] [id number] Platelets (Bld) [#/Vol] 216 10*3/uL Normal 150-450 [facility]; [facility] Work Phone: Comment on above: PATIENT NOT FASTINGP ERFORMED BY: TONYA [facility] Srwxem[address] [facility]blin [place] [id number] BY: CLCIN [facility] [place] [address] [facility] 150[place] [id number] RBC (Bld) [#/Vol] 5.08 {x10E6/uL} Normal 4.14-5.80 [facility] Internal Medicine Work Phone: Comment on above: PATIENT NOT FASTINGP ERFORMED BY: TONYA LabJuliana DavidsonYcmpqj[address] [facility]in [place] [id number] BY: CLCIN [facility] [place] [address] [facility] 150[place] [id number] RBC (Bld) [#/Vol] 5.08 10*6/uL Normal 4.14-5.80 [facility] Internal Medicine; [facility] Internal Medicine Work Phone: Comment on above: PATIENT NOT FASTINGP ERFORMED BY: TONYA Davidsonlin6370 HaneySt. Francis Hospitalin [place] [id number] BY: CLCIN [facility] [place] [address] [facility] 150[place] [id number] WBC (Bld) [#/Vol] 21.8 {x10E3/uL} Abnormal 3.4-10.8 [facility] Internal Medicine Work Phone: Comment on above: PATIENT NOT FASTINGP ERFORMED BY: TONYA [facility] Axhoed[address] [facility] Hospitalblin [place] [id number] BY: CLCIN LabKyrp [place] [address] [facility] 150[place] [id number] WBC (Bld) [#/Vol] 21.8 10*3/uL Abnormal 3.4-10.8 Compr ehensive Internal Medicine; [facility] Work Phone: Comment on above: PATIENT NOT FASTINGP ERFORMED BY: TONYA LabJuliana Torres6370 [address] RoadCarolinaeast Medical Centerin [place] [id number] BY: JAYDE ZambranoWabash County Hospital10291 [facility] 150[place] [id number] C-REACTIVE PROTEIN (79583)Or dered By: Machine Operator on 02-01-2020 CRP [Mass/Vol] mg/L Normal 0-10 Comprehens arianna Internal Medicine Work Phone: Comment on above: PATIENT NOT FASTINGP ERFORMED BY: TONYA [facility] Yvdfas9967 [address] RoadCritical access hospital [id number] CRP [Mass/Vol] mg/L Normal 0-10 Comprehens arianna Internal Medicine; [facility] Work Phone: Comment on above: PATIENT NOT FASTINGP ERFORMED BY: TONYA [facility] Liklwu[address] [facility] [id number] CBC W/AUTO DIFF WBC (30661)O rdered By: Machine Operator on 02-01-2020 Basophils (Bld) [#/Vol] 0.5 {x10E3/uL} Abnormal 0.0-0.2 [facility] Work Phone: Comment on above: PATIENT NOT FASTINGP ERFORMED BY: TONYA [facility] Vkjena[address] [facility] [id number] Basophils (Bld) [#/Vol] 0.5 10*3/uL Abnormal 0.0-0.2 [facility]; [facility] Work Phone: Comment on above: PATIENT NOT FASTINGP ERFORMED BY: TONYA [facility] Oowhpf9855 [address] Roadblin [place] [id number] Basophils/100 WBC (Bld) 2 % Normal C omprehensive Internal Medicine Work Phone: Comment on above: PATIENT NOT FASTINGP ERFORMED BY: TONYA [facility] Vzhsvu4039 Haney RoadCritical access hospital [id number] Eosinophils (Bld) [#/Vol] 0.8 {x10E3/uL} Abnormal 0.0-0.4 [facility] Work Phone: Comment on above: PATIENT NOT FASTINGP ERFORMED BY: CB [facility] Smuujc9239 [address] RoadDublin [place] [id number] Eosinophils (Bld) [#/Vol] 0.8 10*3/uL Abnormal 0.0-0.4 [facility]; [facility] Work Phone: Comment on above: PATIENT NOT FASTINGP ERFORMED BY: CB [facility] Hgqgqp9999 [address] RoadDublin [place] [id number] Eosinophils/100 WBC (Bld) 3 % Normal [facility] Work Phone: Comment on above: PATIENT NOT FASTINGP ERFORMED BY: CB [facility] Xmelul3970 [address] RoadDublin [place] [id number] Erythrocyte distribution width (RBC) [Ratio] 13.8 % Normal 11.6-15.4 [facility] Work Phone: Comment on above: PATIENT NOT FASTINGP ERFORMED BY: CB [facility] Mrredl0996 [address] RoadDublin [place] [id number] Hematocrit (Bld) [Volume fraction] 47.0 % Normal 37.5-51.0 [facility] Work Phone: Comment on above: PATIENT NOT FASTINGP ERFORMED BY: CB [facility] Xmiptv6495 [address] RoadDublin [place] [id number] Hemoglobin (Bld) [Mass/Vol] 16.4 g/dL Normal 13.0-17.7 [facility] Work Phone: Comment on above: PATIENT NOT FASTINGP ERFORMED BY: CB [facility] Xtloic9045 [address] RoadDublin [place] [id number] Immature cells/100 WBC (Bld) Note Normal [facility] Work Phone: Comment on above: PATIENT NOT FASTINGP ERFORMED BY: CB [facility] Yejuqi0019 [address] RoadDublin [place] [id number] Lymphocytes (Bld) [#/Vol] 3.1 {x10E3/uL} Normal 0.7-3.1 [facility] Work Phone: Comment on above: PATIENT NOT FASTINGP ERFORMED BY: CB [facility] Umnnsa6620 [address] RoadDublin [place] [id number] Lymphocytes (Bld) [#/Vol] 3.1 10*3/uL Normal 0.7-3.1 [facility]; [facility] Work Phone: Comment on above: PATIENT NOT FASTINGP ERFORMED BY: CB [facility] Qlpyrx5128 [address] RoadDublin [place] [id number] Lymphocytes/100 WBC (Bld) 12 % Normal [facility] Work Phone: Comment on above: PATIENT NOT FASTINGP ERFORMED BY: CB [facility] Ousgrh0187 [address] RoadDublin [place] [id number] MCH (RBC) [Entitic mass] 30.7 pg Normal 26.6-33.0 [facility] Work Phone: Comment on above: PATIENT NOT FASTINGP ERFORMED BY: CB [facility] Jgyxqm7165 [address] RoadDublin [place] [id number] MCHC (RBC) [Mass/Vol] 34.9 g/dL Normal 31.5-35.7 [facility] Internal Medicine Work Phone: Comment on above: PATIENT NOT FASTINGP ERFORMED BY: CB [facility] Mmrrbl5288 [address] RoadDublin [place] [id number] MCV (RBC) [Entitic vol] 88 fL Normal 79-97 C [facility] Internal Medicine Work Phone: Comment on above: PATIENT NOT FASTINGP ERFORMED BY: CB [facility] Mozmia7255 [address] RoadDublin [place] [id number] Monocytes (Bld) [#/Vol] 1.5 {x10E3/uL} Abnormal 0.1-0.9 [facility] Work Phone: Comment on above: PATIENT NOT FASTINGP ERFORMED BY: CB [facility] Oozgib3391 [address] RoadDublin [place] [id number] Monocytes (Bld) [#/Vol] 1.5 10*3/uL Abnormal 0.1-0.9 [facility]; [facility] Work Phone: Comment on above: PATIENT NOT FASTINGP ERFORMED BY: CB [facility] Cvzhku3202 [address] RoadDublin [place] [id number] Monocytes/100 WBC (Bld) 6 % Normal C omprehensive Internal Medicine Work Phone: Comment on above: PATIENT NOT FASTINGP ERFORMED BY: CB [facility] Qbrecq6597 [address] RoadDublin [place] [id number] Morphology Miguel (Bld) [Interp] Note: Normal [facility] Work Phone: Comment on above: Manual differential was performed. PATIENT NOT FASTINGP ERFORMED BY: CB [facility] Loocay2436 [address] RoadDublin [place] [id number] Neutrophils (Bld) [#/Vol] 18.1 {x10E3/uL} Abnormal 1.4-7.0 [facility] Work Phone: Comment on above: PATIENT NOT FASTINGP ERFORMED BY: CB [facility] Ohnrkh5112 [address] RoadDublin [place] [id number] Neutrophils (Bld) [#/Vol] 18.1 10*3/uL Abnormal 1.4-7.0 [facility]; [facility] Work Phone: Comment on above: PATIENT NOT FASTINGP ERFORMED BY: CB [facility] Orbccm2358 [address] RoadDublin [place] [id number] Neutrophils/100 WBC (Bld) 70 % Normal [facility] Work Phone: Comment on above: PATIENT NOT FASTINGP ERFORMED BY: CB [facility] Tetpqz4857 [address] RoadDublin [place] [id number] Platelets (Bld) [#/Vol] 220 {x10E3/uL} Normal 150-450 [facility] Work Phone: Comment on above: PATIENT NOT FASTINGP ERFORMED BY: CB [facility] Jcezej4857 [address] RoadDublin [place] [id number] Platelets (Bld) [#/Vol] 220 10*3/uL Normal 150-450 [facility] Internal Medicine; [facility] Internal Medicine Work Phone: Comment on above: PATIENT NOT FASTINGP ERFORMED BY: TONYA Torres6370 [address] RoadDublin [place] [id number] RBC (Bld) [#/Vol] 5.35 {x10E6/uL} Normal 4.14-5.80 [facility]ensive Internal [facility] Work Phone: Comment on above: PATIENT NOT FASTINGP ERFORMED BY: CB [facility] Kedsms5949 [address] RoadDublin [place] [id number] RBC (Bld) [#/Vol] 5.35 10*6/uL Normal 4.14-5.80 [facility] Internal Medicine; [facility] Internal Medicine Work Phone: Comment on above: PATIENT NOT FASTINGP ERFORMED BY: TONYA Torres6370 [address] RoadCarolinaeast Medical Centerin [place] [id number] WBC (Bld) [#/Vol] 25.8 {x10E3/uL} Abnormal 3.4-10.8 [facility] Internal Medicine Work Phone: Comment on above: PATIENT NOT FASTINGP ERFORMED BY: TONYA Torres[address] [facility]bl[facility] [place] [id number] WBC (Bld) [#/Vol] 25.8 10*3/uL Abnormal 3.4-10.8 [facility] Internal Medicine; [facility] Internal Medicine Work Phone: Comment on above: PATIENT NOT FASTINGP ERFORMED BY: CB [facility] Rhlpdy[address] [facility]blin [place] [id number] ESR-F (SED RATE ERYTHROCYTE - MALE) (58100)Ordered By: Machine Operator on 02-01-2020 ESR (Bld) [Velocity] 19 mm/h Normal 0-30 [facility] Internal Medicine Work Phone: Comment on above: PATIENT NOT FASTINGP ERFORMED BY: CB [facility] Emurte8848 [address] RoadDublin [place] [id number] CBC W/AUTO DIFF WBC (14457)O rdered By: Machine Operator on 01-28-2020 Basophils (Bld) [#/Vol] 0.8 {x10E3/uL} Abnormal 0.0-0.2 [facility] Work Phone: Comment on above: january; PATIENT NOT FASTINGPERFORMED BY: TONYA [facility] Augart[address] [facility]in [place] [id number] Basophils (Bld) [#/Vol] 0.8 10*3/uL Abnormal 0.0-0.2 [facility]; [facility] Work Phone: Comment on above: january; PATIENT NOT FASTINGPERFORMED BY: CB [facility] Jgiyfk3856 [address]aney RoadCarolinaeast Medical Centerin [place] [id number] Basophils/100 WBC (Bld) 5 % Normal C [facility]reh[facility] Internal Medicine Work Phone: Comment on above: january; PATIENT NOT FASTINGPERFORMED BY: CB [facility] Ywysnn7999 [address] RoadCritical access hospital [id number] Eosinophils (Bld) [#/Vol] 0.8 {x10E3/uL} Abnormal 0.0-0.4 [facility] Work Phone: Comment on above: january; PATIENT NOT FASTINGPERFORMED BY: CB [facility] Adlyvd[address] [facility]in [place] [id number] Eosinophils (Bld) [#/Vol] 0.8 10*3/uL Abnormal 0.0-0.4 [facility]; [facility] Work Phone: Comment on above: january; PATIENT NOT FASTINGPERFORMED BY: CB [facility] Jjblsa[address] [facility]in [place] [id number] Eosinophils/100 WBC (Bld) 5 % Normal [facility] Work Phone: Comment on above: january; PATIENT NOT FASTINGPERFORMED BY: CB [facility] Mhjakj[address] [facility] [id number] Erythrocyte distribution width (RBC) [Ratio] 13.9 % Normal 11.6-15.4 [facility] Work Phone: Comment on above: january; PATIENT NOT FASTINGPERFORMED BY: CB [facility] Zojutm8163 [address] RoadCarolinaeast Medical Centerin [place] [id number] Hematocrit (Bld) [Volume fraction] 47.3 % Normal 37.5-51.0 [facility] Work Phone: Comment on above: early january; PATIENT NOT FASTINGPERFORMED BY: CB [facility] Yobzom0402 [address]aney RoadCarolinaeast Medical Centerin [place] [id number] Hemoglobin (Bld) [Mass/Vol] 15.6 g/dL Normal 13.0-17.7 [facility] Work Phone: Comment on above: early january; PATIENT NOT FASTINGPERFORMED BY: CB [facility] Gnkaij2299 [address]aney RoadCarolinaeast Medical Centerin [place] [id number] Immature cells/100 WBC (Bld) Note Normal [facility] Work Phone: Comment on above: january; PATIENT NOT FASTINGPERFORMED BY: [facility] Ygbsst8105 [address] RoadCarolinaeast Medical Centerin [place] [id number] Lymphocytes (Bld) [#/Vol] 2.3 {x10E3/uL} Normal 0.7-3.1 [facility] Work Phone: Comment on above: early january; PATIENT NOT FASTINGPERFORMED BY: [facility] Eaakez4492 [address] RoadCarolinaeast Medical Centerin [place] [id number] Lymphocytes (Bld) [#/Vol] 2.3 10*3/uL Normal 0.7-3.1 [facility]; [facility] Work Phone: Comment on above: early january; PATIENT NOT FASTINGPERFORMED BY: CB [facility] Wvssvs9270 [address] Roadblin [place] [id number] Lymphocytes/100 WBC (Bld) 15 % Normal [facility] Work Phone: Comment on above: early january; PATIENT NOT FASTINGPERFORMED BY: CB [facility] Qvnfcd[address] [facility]blin [place] [id number] MCH (RBC) [Entitic mass] 30.0 pg Normal 26.6-33.0 [facility] Work Phone: Comment on above: early january; PATIENT NOT FASTINGPERFORMED BY: CB [facility] Lwadyx[address] [facility]in [place] [id number] MCHC (RBC) [Mass/Vol] 33.0 g/dL Normal 31.5-35.7 [facility] Work Phone: Comment on above: early january; PATIENT NOT FASTINGPERFORMED BY: CB [facility] Apninn[address] [facility]in [place] [id number] MCV (RBC) [Entitic vol] 91 fL Normal 79-97 C [facility] centerensive Internal Medicine Work Phone: Comment on above: early january; PATIENT NOT FASTINGPERFORMED BY: CB [facility] Kuwmta[address] [facility]in [place] [id number] Monocytes (Bld) [#/Vol] 1.1 {x10E3/uL} Abnormal 0.1-0.9 [facility] Internal Medicine Work Phone: Comment on above: january; PATIENT NOT FASTINGPERFORMED BY: CB [facility] Nyszna[address] [facility] [id number] Monocytes (Bld) [#/Vol] 1.1 10*3/uL Abnormal 0.1-0.9 [facility]; [facility] Work Phone: Comment on above: january; PATIENT NOT FASTINGPERFORMED BY: [facility] Zdwrzv[address] [facility]in [place] [id number] Monocytes/100 WBC (Bld) 7 % Normal C [facility] centerensive Internal Medicine Work Phone: Comment on above: early january; PATIENT NOT FASTINGPERFORMED BY: [facility] Luttvr[address] [facility]in [place] [id number] Morphology Miguel (Bld) [Interp] Note: Normal [facility] Work Phone: Comment on above: Manual differential was performed. january; PATIENT NOT FASTINGPERFORMED BY: CB [facility] Uljpix[address] [facility] [id number] Neutrophils (Bld) [#/Vol] 9.0 {x10E3/uL} Abnormal 1.4-7.0 [facility] Work Phone: Comment on above: early january; PATIENT NOT FASTINGPERFORMED BY: CB [facility] Iopvto3925 [address] RoadDublin [place] [id number] Neutrophils (Bld) [#/Vol] 9.0 10*3/uL Abnormal 1.4-7.0 [facility]; [facility] Work Phone: Comment on above: early january; PATIENT NOT FASTINGPERFORMED BY: CB [facility] Njknhl1134 [address] RoadDublin [place] [id number] Neutrophils/100 WBC (Bld) 59 % Normal [facility] Work Phone: Comment on above: early january; PATIENT NOT FASTINGPERFORMED BY: CB [facility] Lqlzsm3273 [address] RoadDublin [place] [id number] Platelets (Bld) [#/Vol] 222 {x10E3/uL} Normal 150-450 [facility] Work Phone: Comment on above: early january; PATIENT NOT FASTINGPERFORMED BY: CB [facility] Epraaw9137 [address] RoadDublin [place] [id number] Platelets (Bld) [#/Vol] 222 10*3/uL Normal 150-450 [facility]; [facility] Work Phone: Comment on above: early january; PATIENT NOT FASTINGPERFORMED BY: CB [facility] Ibyyjo3928 [address] RoadDublin [place] [id number] RBC (Bld) [#/Vol] 5.20 {x10E6/uL} Normal 4.14-5.80 [facility] Internal Medicine Work Phone: Comment on above: early january; PATIENT NOT FASTINGPERFORMED BY: CB [facility] Lumcdb7910 [address] RoadDublin [place] [id number] RBC (Bld) [#/Vol] 5.20 10*6/uL Normal 4.14-5.80 [facility] Internal Medicine; [facility] Work Phone: Comment on above: january; PATIENT NOT FASTINGPERFORMED BY: CB [facility] Wjzvto6144 [address] RoadDublin [place] [id number] WBC (Bld) [#/Vol] 15.2 {x10E3/uL} Abnormal 3.4-10.8 [facility] Internal Medicine Work Phone: Comment on above: january; PATIENT NOT FASTINGPERFORMED BY: [facility] [facility] [id number] WBC (Bld) [#/Vol] 15.2 10*3/uL Abnormal 3.4-10.8 [facility] Internal Medicine; [facility] Work Phone: Comment on above: early january; PATIENT NOT FASTINGPERFORMED BY: [place] [address] [facility] [id number] CBC W/AUTO DIFF WBC (23774)O rdered By: Machine Operator on 12-24-2019 Basophils (Bld) [#/Vol] 0.4 {x10E3/uL} Abnormal 0.0-0.2 [facility] Internal Medicine Work Phone: Comment on above: Test(s) 859875-WCN-M ; 970983-OEQ-U; 682206-PAM-H; 453183-Woyvvdnbksapm; 395755-Cdonydluxrb, Total; 947516-WZR-B (Total);366659-Zfegi LDL-P; 909839-EMP Size; 235564-BH-ZC Scorewas developed and its performance characteristics determinedby [facility]. It has not been cleared or approved by the Foodand Drug Administration.PATIENT WAS FASTINGPERFORMED BY: [address] [id number] BY: [facility] [facility] [id number] Basophils (Bld) [#/Vol] 0.4 10*3/uL Abnormal 0.0-0.2 [facility]; [facility] Work Phone: Comment on above: Test(s) 134882-LQH-A ; 824520-UBW-V; 618511-WZK-Q; 660921-Csqxcgqlzpdwa; 035662-Ibvcyjeymqn, Total; 582111-NUE-S (Total);539009-Ujhqi LDL-P; 520878-WUP Size; 692982-IB-UO Scorewas developed and its performance characteristics determinedby [employer]. It has not been cleared or approved by the Foodand Drug Administration.PATIENT WAS FASTINGPERFORMED BY: [employer]Near [address] [id number] BY: [facility] [id number] Basophils/100 WBC (Bld) 3 % Normal [facility] Internal Medicine Work Phone: Comment on above: Test(s) 693581-BGD-D ; 767994-ZKX-Q; 548710-IGZ-E; 091461-Rvfkpmvmewlnt; 180678-Dixeqauwhpm, Total; 747940-BUT-E (Total);042411-Caqey LDL-P; 631573-SLH Size; 435864-NW-UU Scorewas developed and its performance characteristics determinedby [employer]. It has not been cleared or approved by the Foodand Drug Administration.PATIENT WAS FASTINGPERFORMED BY: [employer] [address] [id number] BY: [facility] [id number] Eosinophils (Bld) [#/Vol] 0.6 {x10E3/uL} Abnormal 0.0-0.4 [facility] Internal Medicine Work Phone: Comment on above: Test(s) 571831-ISG-F ; 482286-LLK-A; 567356-RFX-I; 325119-Hcxxdcjiaksxm; 785669-Jzhjprdvfkv, Total; 129131-YYT-L (Total);305083-Pwkub LDL-P; 904197-IID Size; 742724-RA-DL Scorewas developed and its performance characteristics determinedby [employer]. It has not been cleared or approved by the Foodand Drug Administration.PATIENT WAS FASTINGPERFORMED BY: [employer] [address] [id number] BY: [facility] [address] [facility] NetworksCritical access hospital [id number] Eosinophils (Bld) [#/Vol] 0.6 10*3/uL Abnormal 0.0-0.4 [facility]; [facility] Work Phone: Comment on above: Test(s) 822000-TGS-E ; 840162-KXD-B; 696962-RGN-D; 200624-Leplbxogolptm; 309239-Mumnbjjbmma, Total; 185031-QVB-H (Total);451083-Bwlbe LDL-P; 652727-UUK Size; 053716-TR-NY Scorewas developed and its performance characteristics determinedby [employer]. It has not been cleared or approved by the Foodand Drug Administration.PATIENT WAS FASTINGPERFORMED BY: [employer] [place] [address] [id number] BY: [facility]70 [address] [facility] [id number] Eosinophils/100 WBC (Bld) 4 % Normal [facility] Work Phone: Comment on above: Test(s) 581494-CPS-Z ; 817330-TQR-Z; 880904-SLY-T; 732077-Ijepplodehnbr; 880345-Hgxukakeamf, Total; 849409-TZL-Z (Total);090327-Ddryg LDL-P; 946973-WRO Size; 318253-KF-XW Scorewas developed and its performance characteristics determinedby [employer]. It has not been cleared or approved by the Foodand Drug Administration.PATIENT WAS FASTINGPERFORMED BY: Cover Lockscreen[address] [id number] BY: S[facility]ore6370 [facility] [id number] Erythrocyte distribution width (RBC) [Ratio] 14.1 % Normal 11.6-15.4 [facility] Work Phone: Comment on above: Test(s) 477391-UZE-N ; 681563-XIA-L; 880670-VUU-Y; 170029-Zduniwkmegsvm; 174386-Ajhjlhnnjrb, Total; 636701-QBI-Y (Total);684532-Xzhgo LDL-P; 413135-SOW Size; 745262-JH-WU Scorewas developed and its performance characteristics determinedby [employer]. It has not been cleared or approved by the Foodand Drug Administration.PATIENT WAS FASTINGPERFORMED BY: [employer] [address] [id number] BY: Celaton Fogmjh280[address] [facility] [id number] Hematocrit (Bld) [Volume fraction] 43.8 % Normal 37.5-51.0 [facility] Work Phone: Comment on above: Test(s) 617490-FXY-L ; 625011-THZ-X; 509717-QVF-N; 982742-Owhdlujqhwfcg; 391935-Kequvbrmyjg, Total; 694258-PFJ-Y (Total);952994-Ussnn LDL-P; 317221-XBY Size; 400895-OJ-EY Scorewas developed and its performance characteristics determinedby [employer]. It has not been cleared or approved by the Foodand Drug Administration.PATIENT WAS FASTINGPERFORMED BY: [employer] [address] [id number] BY: [employer] [facility] [id number] Hemoglobin (Bld) [Mass/Vol] 15.6 g/dL Normal 13.0-17.7 [facility] Work Phone: Comment on above: Test(s) 356075-QXL-D ; 453661-CPO-X; 135599-TWX-Y; 809098-Wxevllclmvrpm; 478247-Rwfzemprbkn, Total; 203159-UUP-H (Total);856417-Bedqx LDL-P; 540153-HBE Size; 974355-XR-YC Scorewas developed and its performance characteristics determinedby Piper. It has not been cleared or approved by the Foodand Drug Administration.PATIENT WAS FASTINGPERFORMED BY: Engiver[address] [id number] BY: Piper Lxfmbt0[address] [facility] [id number] Immature granulocytes (Bld) [#/Vol] 0.6 {x10E3/uL} Abnormal 0.0-0.1 [facility] Work Phone: Comment on above: (An elevated percent age of Immature Granulocytes has not been foundto be clinically significant as a sole clinical predictor of disease.Does NOT include bands or blast cells. associatedphysiological leukocytosis may also show increased immaturegranulocytes without clinical significance.) Test(s) 710246-URB-P ; 938839-DQZ-F; 549651-YBN-M; 920853-Cknqesrvrxhny; 087197-Kabmhncwoga, Total; 139250-LIM-K (Total);202366-Gurah LDL-P; 321316-TEO Size; 967382-WA-AB Scorewas developed and its performance characteristics determinedby [employer]. It has not been cleared or approved by the Foodand Drug Administration.PATIENT WAS FASTINGPERFORMED BY: [employer] [address] [id number] BY: [facility]70 [facility] [id number] Immature granulocytes (Bld) [#/Vol] 0.6 10*3/uL Abnormal 0.0-0.1 [facility]; [facility] Work Phone: Comment on above: (An elevated percent age of Immature Granulocytes has not been foundto be clinically significant as a sole clinical predictor of disease.Does NOT include bands or blast cells. associatedphysiological leukocytosis may also show increased immaturegranulocytes without clinical significance.) Test(s) 938570-TGF-T ; 936660-YLN-Y; 141183-JLX-R; 808412-Ywypuyeplhnui; 986612-Zvmzuageuom, Total; 216008-RNS-E (Total);356435-Bavdx LDL-P; 701395-VGQ Size; 535145-RW-SD Scorewas developed and its performance characteristics determinedby Pi[employer]. It has not been cleared or approved by the Foodand Drug Administration.PATIENT WAS FASTINGPERFORMED BY: [employer] [address] [id number] BY: Solicore6370 [facility] [id number] Immature granulocytes/100 WBC (Bld) 4 % Normal [facility] Work Phone: Comment on above: Test(s) 040111-CHV-E ; 237499-UPF-V; 946169-YOE-I; 560170-Ctzxmvjpluixg; 329195-Egkzwvrpbjy, Total; 912781-JOL-O (Total);604475-Hiifl LDL-P; 997193-DQY Size; 234957-IA-PT Scorewas developed and its performance characteristics determinedby [employer]. It has not been cleared or approved by the Foodand Drug Administration.PATIENT WAS FASTINGPERFORMED BY: Cover Lockscreen[address] [id number] BY: [facility] [facility] [id number] Lymphocytes (Bld) [#/Vol] 2.5 {x10E3/uL} Normal 0.7-3.1 [facility] Work Phone: Comment on above: Test(s) 214604-RSA-G ; 574381-VDM-W; 795207-TLL-P; 681723-Pzfxuvclwovrq; 815486-Bppzpfkcuyf, Total; 053026-FJO-E (Total);708017-Hoimc LDL-P; 873891-BRF Size; 550336-SD-FT Scorewas developed and its performance characteristics determinedby [employer]. It has not been cleared or approved by the Foodand Drug Administration.PATIENT WAS FASTINGPERFORMED BY: [employer] [address] [id number] BY: IKOTECH Rffgql49[address] [facility] [id number] Lymphocytes (Bld) [#/Vol] 2.5 10*3/uL Normal 0.7-3.1 [facility]; [facility] Work Phone: Comment on above: Test(s) 915255-VJM-V ; 944017-MUX-Y; 274437-CRF-D; 035324-Vphfqsbjcuvhw; 435963-Jjvnehricvg, Total; 594878-NMJ-U (Total);281965-Dtetp LDL-P; 398770-ICG Size; 895048-NN-NS Scorewas developed and its performance characteristics determinedby [employer]. It has not been cleared or approved by the Foodand Drug Administration.PATIENT WAS FASTINGPERFORMED BY: [employer] [address] [id number] BY: [employer]70 [facility] [id number] Lymphocytes/100 WBC (Bld) 17 % Normal [facility] Work Phone: Comment on above: Test(s) 246463-BOH-A ; 251401-LJO-S; 456786-SUY-Y; 483722-Aejfuyjmkmqvp; 405788-Prppmzicdmf, Total; 130462-LSR-N (Total);596130-Ppain LDL-P; 917710-YGM Size; 061957-RI-AF Scorewas developed and its performance characteristics determinedby [employer]. It has not been cleared or approved by the Foodand Drug Administration.PATIENT WAS FASTINGPERFORMED BY: [employer] [address] [id number] BY: [facility]70 [facility] [id number] MCH (RBC) [Entitic mass] 31.3 pg Normal 26.6-33.0 [facility] Work Phone: Comment on above: Test(s) 749841-IHU-D ; 144821-NZK-I; 341226-JWJ-B; 519578-Ljfuilytnnrcc; 024425-Mukrqhnczet, Total; 388370-RHL-S (Total);384445-Sunox LDL-P; 390446-GET Size; 725980-GH-TE Scorewas developed and its performance characteristics determinedby Pi[employer]. It has not been cleared or approved by the Foodand Drug Administration.PATIENT WAS FASTINGPERFORMED BY: [employer] [address] [id number] BY: Kaazinglin[address] [facility] [id number] MCHC (RBC) [Mass/Vol] 35.6 g/dL Normal 31.5-35.7 [facility] Work Phone: Comment on above: Test(s) 124526-OPN-B ; 070671-OAU-E; 798077-WSK-M; 714852-Ugbjaoufddmjo; 815619-Zmlnrptfpzq, Total; 903238-UWA-J (Total);236207-Lxpgj LDL-P; 821674-MDR Size; 975693-VN-VL Scorewas developed and its performance characteristics determinedby [employer]. It has not been cleared or approved by the Foodand Drug Administration.PATIENT WAS FASTINGPERFORMED BY: [employer] [place] [address] [id number] BY: [facility]70 H[address] [facility] [id number] MCV (RBC) [Entitic vol] 88 fL Normal 79-97 [facility] Internal Medicine Work Phone: Comment on above: Test(s) 008190-ULL-P ; 615350-KCF-S; 547301-AMY-Q; 103081-Xtxkpmkywssgk; 262554-Cvjespzbvmz, Total; 294462-QLQ-Q (Total);627060-Nulos LDL-P; 457300-RUF Size; 344899-DO-EH Scorewas developed and its performance characteristics determinedby Pi[employer]. It has not been cleared or approved by the Foodand Drug Administration.PATIENT WAS FASTINGPERFORMED BY: [employer]1447 [facility] [id number] BY: Solicore6370 [place] Direct Access SoftwareWashington Regional Medical Center [id number] Monocytes (Bld) [#/Vol] 1.4 {x10E3/uL} Abnormal 0.1-0.9 [facility] Internal Medicine Work Phone: Comment on above: Test(s) 544993-CFA-C ; 091565-GYH-A; 250275-IKZ-B; 276650-Timcnmwqhyabg; 152297-Yudziswgjoj, Total; 377801-UKQ-M (Total);264249-Ruqsy LDL-P; 636046-MGW Size; 469460-KA-RA Scorewas developed and its performance characteristics determinedby Piper. It has not been cleared or approved by the Foodand Drug Administration.PATIENT WAS FASTINGPERFORMED BY: [employer] [address] [id number] BY: Celaton Ebxnhb49[address] [facility] [id number] Monocytes (Bld) [#/Vol] 1.4 10*3/uL Abnormal 0.1-0.9 [facility]; [facility] Internal Medicine Work Phone: Comment on above: Test(s) 866070-VAM-C ; 476363-FQG-E; 384750-YPY-C; 859390-Brvafwkimbhto; 482319-Rbcvsbrubqb, Total; 264402-KKF-W (Total);271473-Wqvrh LDL-P; 713792-YZM Size; 016306-ZS-YV Scorewas developed and its performance characteristics determinedby Piper. It has not been cleared or approved by the Foodand Drug Administration.PATIENT WAS FASTINGPERFORMED BY: [employer] [address] [id number] BY: [facility]70 [address] [facility] NetworksCritical access hospital [id number] Monocytes/100 WBC (Bld) 10 % Normal [facility] Internal Medicine Work Phone: Comment on above: Test(s) 328819-XTR-M ; 749583-WVQ-E; 898622-FUZ-D; 710178-Xktdqmqviysui; 731807-Hfajrssuwam, Total; 083507-TDN-B (Total);640693-Jjgmf LDL-P; 756817-LHA Size; 130286-NU-EE Scorewas developed and its performance characteristics determinedby Piper. It has not been cleared or approved by the Foodand Drug Administration.PATIENT WAS FASTINGPERFORMED BY: [employer] [address] [id number] BY: Solicore[address] [facility] [id number] Neutrophils (Bld) [#/Vol] 9.1 {x10E3/uL} Abnormal 1.4-7.0 [facility] Work Phone: Comment on above: Test(s) 779413-FZH-O ; 929463-ZUO-V; 661679-VHO-E; 315226-Upjhevyorxebo; 145551-Msueddqvzxg, Total; 467665-VRZ-R (Total);362992-Yswpd LDL-P; 825585-GXH Size; 999218-EZ-HC Scorewas developed and its performance characteristics determinedby Pi[employer]. It has not been cleared or approved by the Foodand Drug Administration.PATIENT WAS FASTINGPERFORMED BY: [employer] [place] [address] [id number] BY: [facility] [facility] [id number] Neutrophils (Bld) [#/Vol] 9.1 10*3/uL Abnormal 1.4-7.0 [facility]; [facility] Work Phone: Comment on above: Test(s) 303030-LGQ-O ; 362219-MMO-X; 288130-IVB-N; 654171-Grnmbbobtjima; 434295-Hhdhpztcvhd, Total; 850307-PAG-E (Total);856977-Bbwlp LDL-P; 045525-VIE Size; 748200-WD-VW Scorewas developed and its performance characteristics determinedby [employer]. It has not been cleared or approved by the Foodand Drug Administration.PATIENT WAS FASTINGPERFORMED BY: Cover Lockscreen[address] [id number] BY: Solicore[address] [facility] [id number] Neutrophils/100 WBC (Bld) 62 % Normal [facility] Work Phone: Comment on above: Test(s) 123167-YJG-G ; 396653-ZVT-K; 754252-WIY-Y; 961070-Asrwmpsnukuyd; 192758-Qwhkoiukdhl, Total; 924993-ZSG-X (Total);511548-Uvbdf LDL-P; 947899-LFO Size; 692087-TH-OT Scorewas developed and its performance characteristics determinedby [employer]. It has not been cleared or approved by the Foodand Drug Administration.PATIENT WAS FASTINGPERFORMED BY: [employer] [address] [id number] BY: Celatonrp Sbkmsn9375 [facility] [id number] Platelets (Bld) [#/Vol] 229 {x10E3/uL} Normal 150-450 [facility] Work Phone: Comment on above: Test(s) 812870-IUT-C ; 750095-ASJ-F; 084099-CMQ-W; 742101-Hfhbslyiqksom; 896458-Xjdcqvvembg, Total; 864852-XGC-S (Total);969556-Jmtzs LDL-P; 779723-EEZ Size; 488253-QV-CZ Scorewas developed and its performance characteristics determinedby [employer]. It has not been cleared or approved by the Foodand Drug Administration.PATIENT WAS FASTINGPERFORMED BY: [employer] [address] [id number] BY: Solicore6370 [facility] [id number] Platelets (Bld) [#/Vol] 229 10*3/uL Normal 150-450 [facility]; [facility] Work Phone: Comment on above: Test(s) 008982-HIK-I ; 205635-LFL-S; 834304-WDP-A; 054249-Gwwxllsqtovts; 545066-Qmttblkxwgo, Total; 243010-KEO-J (Total);455234-Ptxzy LDL-P; 513086-AAQ Size; 260244-SN-AM Scorewas developed and its performance characteristics determinedby [employer]. It has not been cleared or approved by the Foodand Drug Administration.PATIENT WAS FASTINGPERFORMED BY: [employer] [address] [id number] BY: IKOTECH Qljtdj5027 [facility] [id number] RBC (Bld) [#/Vol] 4.99 {x10E6/uL} Normal 4.14-5.80 [facility] Internal Medicine Work Phone: Comment on above: Test(s) 419022-CKR-B ; 663140-UTK-V; 434503-DRH-P; 774466-Ojzwjluaaduan; 489789-Mgglrsaercz, Total; 250854-GUY-Z (Total);942816-Qxtzj LDL-P; 515884-NSI Size; 331571-QT-LA Scorewas developed and its performance characteristics determinedby [employer]. It has not been cleared or approved by the Foodand Drug Administration.PATIENT WAS FASTINGPERFORMED BY: Cover Lockscreen[address] [id number] BY: [facility] [facility] [id number] RBC (Bld) [#/Vol] 4.99 10*6/uL Normal 4.14-5.80 [facility] Internal [facility]; [facility] Internal Medicine Work Phone: Comment on above: Test(s) 077499-JWF-Z ; 712373-GDO-T; 924790-KRQ-O; 912481-Ayucxgenriviv; 196315-Wdpyvdtruxi, Total; 878720-UJX-K (Total);305133-Hpssf LDL-P; 721288-FSJ Size; 478778-BE-YU Scorewas developed and its performance characteristics determinedby [employer]. It has not been cleared or approved by the Foodand Drug Administration.PATIENT WAS FASTINGPERFORMED BY: [employer]Near [address] [id number] BY: Solicore[address] [facility] [id number] WBC (Bld) [#/Vol] 14.5 {x10E3/uL} Abnormal 3.4-10.8 [facility] Internal Medicine Work Phone: Comment on above: Test(s) 806821-UVZ-G ; 142742-IVY-C; 774848-ATZ-T; 115407-Kboeykzowmejv; 976969-Wymcxmhuqqh, Total; 722418-TWE-S (Total);088061-Hhbgv LDL-P; 166127-YMM Size; 953593-KB-YB Scorewas developed and its performance characteristics determinedby [employer]. It has not been cleared or approved by the Foodand Drug Administration.PATIENT WAS FASTINGPERFORMED BY: [employer] [address] [id number] BY: IKOTECH Talpyu5[address] [facility] [id number] WBC (Bld) [#/Vol] 14.5 10*3/uL Abnormal 3.4-10.8 [facility] Internal [facility]; [facility] Work Phone: Comment on above: Test(s) 885385-TYY-Q ; 467330-FYK-J; 801037-LLF-L; 596833-Xzjnplpywsedh; 929350-Roezhicfhvo, Total; 594090-BAN-C (Total);728003-Divdr LDL-P; 692673-QKW Size; 296471-ML-NA Scorewas developed and its performance characteristics determinedby [employer]. It has not been cleared or approved by the Foodand Drug Administration.PATIENT WAS FASTINGPERFORMED BY: [employer]Near [address] [id number] BY: IKOTECH Vrbzdi8226 [facility] [id number] METABOLIC PANEL, COMPREHENSI VE (67223)Ordered By: Machine Operator on 12-24-2019 Albumin [Mass/Vol] 4.7 g/dL Normal 3.8-4.9 [facility] Internal Medicine Work Phone: Comment on above: Test(s) 501046-OYV-W ; 526410-QOW-R; 580071-CXZ-O; 515531-Gipxvxvhfazje; 714351-Evswwavrrwx, Total; 456589-LRS-P (Total);622856-Pofza LDL-P; 600465-LDE Size; 150014-WK-TP Scorewas developed and its performance characteristics determinedby [employer]. It has not been cleared or approved by the Foodand Drug Administration.PATIENT WAS FASTINGPERFORMED BY: Engiver[address] [id number] BY: Celaton Lbxpqg5351 [place] [facility] Alto NetworksCritical access hospital [id number] Albumin/Globulin [Mass ratio] 1.7 {ratio} Normal 1.2-2.2 [facility] Work Phone: Comment on above: Test(s) 763971-WQY-K ; 274207-DFQ-S; 674935-ZWY-D; 303335-Ygzskqjdthahq; 273390-Inonetwasvu, Total; 525936-RXC-J (Total);067252-Nmijf LDL-P; 804422-WBY Size; 407095-DH-OM Scorewas developed and its performance characteristics determinedby [employer]. It has not been cleared or approved by the Foodand Drug Administration.PATIENT WAS FASTINGPERFORMED BY: AdNear [address] [id number] BY: Membersuite Onifnj35[address] [facility] [id number] ALP [Catalytic activity/Vol] 80 [iU]/L Normal 39117 [facility] Work Phone: Comment on above: Test(s) 275545-NPY-S ; 323762-FYN-I; 778470-XEG-B; 406285-Lruautbmqqqqo; 444443-Fwzozcqyccv, Total; 879025-TXT-I (Total);668041-Zhrjd LDL-P; 541544-BGN Size; 681927-YU-EB Scorewas developed and its performance characteristics determinedby [employer]. It has not been cleared or approved by the Foodand Drug Administration.PATIENT WAS FASTINGPERFORMED BY: Engiver[address] [id number] BY: MembersuiteJersey Shore University Medical CenterQwreil23[address] [facility] [id number] ALP [Catalytic activity/Vol] 80 U/L Normal 39-117 [facility]; [facility] Work Phone: Comment on above: Test(s) 907253-XZU-B ; 379647-NPT-V; 900889-YPT-C; 766566-Lefcslsmnxejk; 161222-Vmgdsrytliu, Total; 106617-UYX-B (Total);234954-Byzek LDL-P; 218653-KVA Size; 953273-RJ-HD Scorewas developed and its performance characteristics determinedby [employer]. It has not been cleared or approved by the Foodand Drug Administration.PATIENT WAS FASTINGPERFORMED BY: Celaton[address] [id number] BY: CelatonLaurie Ville 3672870 [facility] [id number] ALT [Catalytic activity/Vol] 33 [iU]/L Normal 0-44 [facility] Internal Medicine Work Phone: Comment on above: Test(s) 170562-RNS-W ; 606568-XPT-F; 507608-LDU-R; 184869-Fcywjduftimrb; 564823-Wryuvvyzwsp, Total; 346123-VUM-C (Total);458871-Uylry LDL-P; 487879-SBK Size; 113292-FX-DY Scorewas developed and its performance characteristics determinedby [employer]. It has not been cleared or approved by the Foodand Drug Administration.PATIENT WAS FASTINGPERFORMED BY: AdNear [address] [id number] BY: CelatonJersey Shore University Medical CenterKqeuvk8087 [facility] [id number] ALT [Catalytic activity/Vol] 33 U/L Normal 0-44 [facility]; [facility] Work Phone: Comment on above: Test(s) 789013-NZM-X ; 933127-OXJ-K; 104727-GVF-E; 139795-Isxyjhapiziaa; 029610-Rnmhmkxeqdw, Total; 540887-CXB-S (Total);749173-Zworz LDL-P; 446800-GPI Size; 715346-ZZ-JU Scorewas developed and its performance characteristics determinedby [employer]. It has not been cleared or approved by the Foodand Drug Administration.PATIENT WAS FASTINGPERFORMED BY: Celaton[address] [id number] BY: Solicore6370 CENXWashington Regional Medical Center [id number] AST [Catalytic activity/Vol] 27 [iU]/L Normal 0-40 [facility] Internal Medicine Work Phone: Comment on above: Test(s) 844017-ETP-N ; 563127-GKE-G; 116491-XVW-S; 849724-Cthcgmobdnpuq; 337130-Fjivkvfirpg, Total; 094749-ZSU-V (Total);150072-Ntmdw LDL-P; 132606-BQS Size; 163975-VB-TF Scorewas developed and its performance characteristics determinedby [employer]. It has not been cleared or approved by the Foodand Drug Administration.PATIENT WAS FASTINGPERFORMED BY: AdNear [address] [id number] BY: Solicore6370 PaymentWorksSaint Elizabeth Edgewood [id number] AST [Catalytic activity/Vol] 27 U/L Normal 0-40 [facility] Internal Medicine; [facility] Internal Medicine Work Phone: Comment on above: Test(s) 812167-JPU-P ; 887718-ZLE-C; 909983-OSP-C; 456806-Narhslzxsekmv; 582856-Lanrtdgdqlz, Total; 257197-JCF-Z (Total);090316-Cnekj LDL-P; 703016-TBX Size; 524367-FQ-MP Scorewas developed and its performance characteristics determinedby [employer]. It has not been cleared or approved by the Foodand Drug Administration.PATIENT WAS FASTINGPERFORMED BY: AdNear [address] [id number] BY: Solicore6370 Theocorp Holding CompanyCritical access hospital [id number] Bilirubin [Mass/Vol] 0.4 mg/dL Normal 0.0-1.2 [facility] Internal Medicine Work Phone: Comment on above: Test(s) 357985-RJL-N ; 943599-LIP-A; 525116-FGZ-K; 691699-Ymzcoymyfvsqi; 632732-Iypjxiplkip, Total; 984660-JPG-H (Total);051182-Pfvoc LDL-P; 134311-NKE Size; 097492-FR-GA Scorewas developed and its performance characteristics determinedby [employer]. It has not been cleared or approved by the Foodand Drug Administration.PATIENT WAS FASTINGPERFORMED BY: AdNear [address] [id number] BY: Membersuite Yxagll8972 [place] Direct Access SoftwareWashington Regional Medical Center [id number] Calcium [Mass/Vol] 9.5 mg/dL Normal 8.7-10.2 [facility] Internal Medicine Work Phone: Comment on above: Test(s) 100938-NDE-E ; 144318-CZQ-H; 259548-YZF-B; 405238-Jsfpyslbufpag; 206208-Lbfuqsngvzb, Total; 082639-DXR-W (Total);362740-Yjcsb LDL-P; 941203-EFG Size; 462106-FV-NE Scorewas developed and its performance characteristics determinedby Piper. It has not been cleared or approved by the Foodand Drug Administration.PATIENT WAS FASTINGPERFORMED BY: AdNear [address] [id number] BY: [facility] [place] Direct Access SoftwareWashington Regional Medical Center [id number] Chloride [Moles/Vol] 98 mmol/L Normal 96-106 [facility] Internal Medicine Work Phone: Comment on above: Test(s) 047025-BVD-T ; 650155-TLN-T; 059515-UOB-X; 274279-Jdplegmrojzga; 338265-Aeebplzqoht, Total; 013817-QON-A (Total);701029-Akexl LDL-P; 546867-MNE Size; 947017-LE-LG Scorewas developed and its performance characteristics determinedby Piper. It has not been cleared or approved by the Foodand Drug Administration.PATIENT WAS FASTINGPERFORMED BY: AdNear [address] [id number] BY: [facility] [facility] [id number] CO2 [Moles/Vol] 24 mmol/L Normal 20-29 [facility] Internal Medicine Work Phone: Comment on above: Test(s) 573120-PTV-X ; 742153-EGC-W; 587355-GNP-U; 581418-Dhgtduaeiwovo; 980729-Joghijllzyq, Total; 242915-VXE-I (Total);481285-Mluxd LDL-P; 509765-ELU Size; 818771-YS-HM Scorewas developed and its performance characteristics determinedby [employer]. It has not been cleared or approved by the Foodand Drug Administration.PATIENT WAS FASTINGPERFORMED BY: [employer] [facility] [id number] BY: Solicore[address] [facility] [id number] Creatinine [Mass/Vol] 0.83 mg/dL Normal 0.76-1.27 [facility] Internal Medicine Work Phone: Comment on above: Test(s) 882393-PQW-I ; 183660-DUN-X; 241636-VLZ-G; 597412-Camaecldfjjeq; 421559-Sygwbcxtuuz, Total; 910997-OFO-L (Total);344722-Nnqfw LDL-P; 917599-TOZ Size; 295583-EN-ZX Scorewas developed and its performance characteristics determinedby Piper. It has not been cleared or approved by the Foodand Drug Administration.PATIENT WAS FASTINGPERFORMED BY: Cover Lockscreen[address] [id number] BY: IKOTECH Rrgtnh8257 [facility] [id number] GFR/1.73 sq M predicted among blacks CKD-EPI (S/P/Bld) [Vol rate/Area] 111 mL/min/1.73 Normal [facility] Internal Medicine Work Phone: Comment on above: Test(s) 512364-TAS-F ; 315162-ZVM-R; 827941-CDP-M; 403537-Lbcuktosqdmaw; 225712-Ukfrwzwprti, Total; 820137-NQR-D (Total);131146-Ehjuk LDL-P; 074940-QFM Size; 560915-TA-ZN Scorewas developed and its performance characteristics determinedby Pi[employer]. It has not been cleared or approved by the Foodand Drug Administration.PATIENT WAS FASTINGPERFORMED BY: AdNear [address] [id number] BY: Piper Xjjdmy7732 [facility] [id number] GFR/1.73 sq M predicted among non-blacks CKD-EPI (S/P/Bld) [Vol rate/Area] 96 mL/min/1.73 Normal [facility] Work Phone: Comment on above: Test(s) 292270-IBH-L ; 301085-UZS-D; 822885-UDJ-S; 041932-Gxbduzvwkezwg; 580650-Nhuzxqccklr, Total; 416607-YBS-P (Total);450295-Hhkra LDL-P; 758056-ENU Size; 136964-EE-HM Scorewas developed and its performance characteristics determinedby [employer]. It has not been cleared or approved by the Foodand Drug Administration.PATIENT WAS FASTINGPERFORMED BY: AdNear [address] [id number] BY: CelatonJersey Shore University Medical CenterSkiocr217[address] [facility] [id number] Globulin (S) [Mass/Vol] 2.8 g/dL Normal 1.5-4.5 [facility] Internal [facility] Work Phone: Comment on above: Test(s) 907268-WNS-A ; 725186-XXP-D; 242654-XSS-O; 176760-Izkkpdzjolojm; 154267-Jtqjbfpvutf, Total; 339045-GTU-W (Total);483336-Mjrep LDL-P; 636703-VHZ Size; 170890-GG-PS Scorewas developed and its performance characteristics determinedby Piper. It has not been cleared or approved by the Foodand Drug Administration.PATIENT WAS FASTINGPERFORMED BY: AdNear [address] [id number] BY: Solicore6370 CENXWashington Regional Medical Center [id number] Glucose [Mass/Vol] 97 mg/dL Normal 65-99 [facility] Internal Medicine Work Phone: Comment on above: Test(s) 619745-ERI-P ; 738820-BXZ-G; 498014-KEC-K; 062475-Plrvjhkwqywwc; 923109-Xahcbislmlp, Total; 714507-IIC-B (Total);424711-Sczih LDL-P; 519897-VEG Size; 772879-ZQ-TS Scorewas developed and its performance characteristics determinedby Piper. It has not been cleared or approved by the Foodand Drug Administration.PATIENT WAS FASTINGPERFORMED BY: AdNear [address] [id number] BY: [facility]70 CENXWashington Regional Medical Center [id number] Potassium [Moles/Vol] 4.4 mmol/L Normal 3.5-5.2 [facility] Internal Medicine Work Phone: Comment on above: Test(s) 561241-RFQ-K ; 855570-DGW-V; 321492-JCX-E; 008395-Umhihieqvsbem; 087898-Dfbqgheoebe, Total; 204664-DNO-M (Total);278418-Hvybh LDL-P; 819844-USD Size; 458546-XB-UO Scorewas developed and its performance characteristics determinedby Piper. It has not been cleared or approved by the Foodand Drug Administration.PATIENT WAS FASTINGPERFORMED BY: AdNear [address] [id number] BY: Solicore6370 [facility] NetworksCritical access hospital [id number] Protein [Mass/Vol] 7.5 g/dL Normal 6.0-8.5 [facility] Internal Medicine Work Phone: Comment on above: Test(s) 795878-VLQ-O ; 604846-RPT-Q; 675309-AKE-B; 314298-Ozymuvwnrtlfh; 399964-Seunmuvmdnh, Total; 346814-FLY-Y (Total);464742-Reund LDL-P; 710321-LXL Size; 039353-UG-KK Scorewas developed and its performance characteristics determinedby Piper. It has not been cleared or approved by the Foodand Drug Administration.PATIENT WAS FASTINGPERFORMED BY: AdNear [address] [id number] BY: [facility] [facility] [id number] Sodium [Moles/Vol] 139 mmol/L Normal 134-144 [facility] Internal Medicine Work Phone: Comment on above: Test(s) 637123-YNY-F ; 038412-TJJ-M; 304405-PRD-F; 014370-Wrsxmjrkqeqce; 080462-Xzkfjuwszmk, Total; 064396-JHM-M (Total);908512-Kjwtq LDL-P; 796886-TWD Size; 211529-WJ-BZ Scorewas developed and its performance characteristics determinedby Piper. It has not been cleared or approved by the Foodand Drug Administration.PATIENT WAS FASTINGPERFORMED BY: AdNear [address] [id number] BY: Solicore[address] [facility] [id number] Urea nitrogen [Mass/Vol] 12 mg/dL Normal 6-24 [facility] Internal Medicine Work Phone: Comment on above: Test(s) 444574-CLR-W ; 316451-PYU-F; 451548-YUS-P; 349680-Zfkkndtgocnxb; 274348-Qmnaamehhbj, Total; 049965-XXA-R (Total);936149-Rvpjf LDL-P; 314601-SIV Size; 989001-PT-GB Scorewas developed and its performance characteristics determinedby Pi[employer]. It has not been cleared or approved by the Foodand Drug Administration.PATIENT WAS FASTINGPERFORMED BY: AdNear [address] [id number] BY: [facility]70 CENXWashington [facility] Medical Center [id number] Urea nitrogen/Creatinine [Mass ratio] 14 mg/mg Normal 9-20 [facility] Work Phone: Comment on above: Test(s) 232316-SWZ-N ; 535255-DKA-I; 075022-PYS-Z; 125851-Bdtvigzzwstkv; 341607-Modsirxfxyl, Total; 802830-VNN-K (Total);690049-Aapxn LDL-P; 732033-EJW Size; 396307-PQ-FQ Scorewas developed and its performance characteristics determinedby Piper. It has not been cleared or approved by the Foodand Drug Administration.PATIENT WAS FASTINGPERFORMED BY: Cover Lockscreen[address] [id number] BY: [facility]70 CENXWashington Regional Medical Center [id number] MICROALBUMINOrdered By: Syst em Headend Technician on 12-24-2019 Albumin DL <= 20 mg/L (U) [Mass/Vol] 5.3 ug/mL Normal [facility] Work Phone: Comment on above: Test(s) 357360-MDB-Z ; 554958-UIS-W; 166677-ECZ-I; 301003-Hgltfasucyzhe; 773952-Hgvavkxpgoa, Total; 033578-FOY-M (Total);932929-Bpaee LDL-P; 694846-DQC Size; 369294-NU-KO Scorewas developed and its performance characteristics determinedby Piper. It has not been cleared or approved by the Foodand Drug Administration.PATIENT WAS FASTINGPERFORMED BY: AdNear [address] [id number] BY: [facility]70 [address] [facility] Alto NetworksCritical access hospital [id number] Albumin/Creatinine (U) [Mass ratio] 6 {mg/g_creat} Normal 0-29 [facility] Work Phone: Comment on above: Normal: 0 - 29 Moder ately increased: 30 - 300 Severely increased: >300 Please note reference interval change Test(s) 435273-QWW-N ; 311907-PNN-C; 313915-JWP-G; 277811-Hjvwsdnnvonbr; 625192-Qjnjvtsfzqd, Total; 272862-HYM-F (Total);071938-Ihlbe LDL-P; 509996-QUH Size; 098521-ZK-GW Scorewas developed and its performance characteristics determinedby Piper. It has not been cleared or approved by the Foodand Drug Administration.PATIENT WAS FASTINGPERFORMED BY: AdNear [address] [id number] BY: IKOTECH Igtqcc9[address] [facility] [id number] Creatinine (U) [Mass/Vol] 87.9 mg/dL Normal [facility] Work Phone: Comment on above: Test(s) 751529-CAO-M ; 458742-QUM-U; 994605-HSL-H; 308777-Mzojyjlffdava; 971729-Tzahfotmkhy, Total; 510079-OTJ-U (Total);206170-Ghyvv LDL-P; 132523-QYP Size; 561835-YN-MF Scorewas developed and its performance characteristics determinedby Piper. It has not been cleared or approved by the Foodand Drug Administration.PATIENT WAS FASTINGPERFORMED BY: AdNear [address] [id number] BY: IKOTECH Uaaefv14[address] [facility] [id number] NMR Profile (72436)Ordered B y: Machine Operator on 12-24-2019 Cholesterol [Mass/Vol] 149 mg/dL Normal 100-199 [facility] Internal Medicine Work Phone: Comment on above: Test(s) 684767-ZJD-A ; 572479-XAF-D; 091135-AMT-I; 959878-Wavpvryhwoefr; 519375-Fmmvfdihxuw, Total; 576399-IXT-N (Total);702683-Snayd LDL-P; 652046-KLJ Size; 251684-PR-YT Scorewas developed and its performance characteristics determinedby Piper. It has not been cleared or approved by the Foodand Drug Administration.PATIENT WAS FASTINGPERFORMED BY: [place]atonTracy [place] [address] [facility] [id number] BY: Celaton Yaiatg80[address] [facility] [id number] Lipoprotein.alpha [Moles/Vol] 31.2 umol/L Normal [facility] Internal Medicine Work Phone: Comment on above: Test(s) 134020-RUX-W ; 411954-HOJ-I; 173171-FMV-I; 902615-Qhniqkqizicpx; 270845-Witgqzaylng, Total; 283364-ZOO-E (Total);765443-Oucls LDL-P; 870509-VBN Size; 060690-BA-MX Scorewas developed and its performance characteristics determinedby Piper. It has not been cleared or approved by the Foodand Drug Administration.PATIENT WAS FASTINGPERFORMED BY: Piper [address] [id number] BY: [employer] Projectslin[address] [facility] [id number] Lipoprotein.beta.subpar ticle [Entitic length] 19.8 nm Abnormal [facility] Internal Medicine Work Phone: Comment [...] not afterLDL-P is taken into account. Test(s) 982861-ZHR-U ; 021549-FPX-V; 058953-EWI-W; 241370-Dbkhaayqjzjmr; 540761-Pmfjroqaqpo, Total; 485421-FDA-T (Total);486443-Woynv LDL-P; 012381-UXX Size; 673142-BX-XM Scorewas developed and its performance characteristics determinedby Piper. It has not been cleared or approved by the Foodand Drug Administration.PATIENT WAS FASTINGPERFORMED BY: Cover Lockscreen[address] [id number] BY: ehealthtracker [facility] [id number] Lipoprotein.beta.subpar ticle [Moles/Vol] 949 nmol/L Normal [facility] Work Phone: Comment on above: Low < 1000 Moderate 1000 - 1299 Borderline-High 1300 - 1599 High 1600 - 2000 Very High > 2000 Test(s) 560483-KZO-O ; 458861-WID-K; 598809-KMD-Q; 332431-Idafveogncxdm; 612422-Plwdoeibple, Total; 482941-QEO-P (Total);235333-Acdoe LDL-P; 565433-CTZ Size; 004812-KK-UY Scorewas developed and its performance characteristics determinedby Piper. It has not been cleared or approved by the Foodand Drug Administration.PATIENT WAS FASTINGPERFORMED BY: AdNear [address] [id number] BY: [facility]70 Theocorp Holding CompanyCritical access hospital [id number] Lipoprotein.beta.subpar ticle.small [Moles/Vol] 605 nmol/L Abnormal Comprehe nsive Internal Medicine Work Phone: Comment on above: Test(s) 878938-PDF-H ; 601320-WAX-E; 328049-ZAT-K; 307345-Rezdfdwkjujne; 466786-Hwtdacnzfln, Total; 059228-YGM-C (Total);735809-Nfmco LDL-P; 956055-NKU Size; 884707-IJ-XW Scorewas developed and its performance characteristics determinedby Piper. It has not been cleared or approved by the Foodand Drug Administration.PATIENT WAS FASTINGPERFORMED BY: Cover Lockscreen[address] [id number] BY: [facility] [facility] [id number] Triglyceride [Mass/Vol] 279 mg/dL Abnormal 0-149 C [facility] Internal Medicine Work Phone: Comment on above: Test(s) 424523-BPB-J ; 336721-CGU-R; 591924-RWO-M; 187654-Whqetslpxjoom; 528686-Yggtpyrzccf, Total; 388995-AMJ-B (Total);497128-Ayrak LDL-P; 613445-CCF Size; 652206-IX-RK Scorewas developed and its performance characteristics determinedby [employer]. It has not been cleared or approved by the Foodand Drug Administration.PATIENT WAS FASTINGPERFORMED BY: Cover Lockscreen[address] [id number] BY: Solicore[address] [facility] [id number] NMR Profile (46421) 41 mg/dL Normal [facility] Internal Medicine Work Phone: Comment on above: Test(s) 906016-RXA-R ; 170594-GPM-H; 470621-IKD-T; 213719-Jggriuqyboqyt; 379967-Xutmeeyfbfu, Total; 981285-CKG-V (Total);451296-Jvlsa LDL-P; 683514-WIK Size; 946192-YD-JG Scorewas developed and its performance characteristics determinedby Pi[employer]. It has not been cleared or approved by the Foodand Drug Administration.PATIENT WAS FASTINGPERFORMED BY: AdNear [address] [id number] BY: [facility] [facility] [id number] NMR Profile (16989) 52 mg/dL Normal 0-99 [facility] Work Phone: Comment on above: . Optimal < 100 Abov e optimal 100 - 129 Borderline 130 - 159 High 160 - 189 Very high > 189 .LDL-C is inaccurate if patient is non-fasting. Test(s) 502961-ZRE-H ; 050290-WYC-O; 865864-QDS-S; 140028-Eatpxwqtrjaza; 046695-Jwlibapmjmh, Total; 978053-KLY-Y (Total);608978-Pqsyx LDL-P; 756602-PPN Size; 294451-HF-GY Scorewas developed and its performance characteristics determinedby Piper. It has not been cleared or approved by the Foodand Drug Administration.PATIENT WAS FASTINGPERFORMED BY: Cover Lockscreenton1447 [facility] [id number] BY: [employer] [facility] [id number] NMR Profile (77278) 279 mg/dL Abnormal 0-149 [facility]; [facility] Work Phone: NMR Profile (54160) 149 mg/dL Normal 100-199 [facility]; [facility] Work Phone: TSH (20601)Ordered By: Teodora m Headend Technician on 12-24-2019 TSH Qn 3.460 {uIU/mL} Normal 0.450-4.50 0 [facility] Work Phone: Comment on above: Test(s) 097205-IWQ-B ; 917394-THR-S; 844104-CHZ-E; 187225-Rkfxwjphxgogs; 128240-Skbbfaxbxmk, Total; 121286-AWT-Z (Total);940525-Rlrsc LDL-P; 312360-OZK Size; 976632-FM-SE Scorewas developed and its performance characteristics determinedby Piper. It has not been cleared or approved by the Foodand Drug Administration.PATIENT WAS FASTINGPERFORMED BY: [employer]1447 [facility] [id number] BY: Solicore[address] [facility] [id number] URINALYSIS, W/ MICRO (00917) Ordered By: Machine Operator on 12-24-2019 Appearance (U) Clear Normal Comprehens arianna Internal Medicine Work Phone: Comment on above: Test(s) 239029-BDD-G ; 857938-FOT-C; 245443-OKQ-C; 942488-Nwaafrzqfagco; 617535-Xjoijllsqdb, Total; 493835-IJP-Q (Total);811034-Mztkq LDL-P; 400801-NTX Size; 365577-RX-ZZ Scorewas developed and its performance characteristics determinedby Piper. It has not been cleared or approved by the Foodand Drug Administration.PATIENT WAS FASTINGPERFORMED BY: Cover Lockscreen[address] [id number] BY: [facility]70 [place] Direct Access SoftwareWashington Regional Medical Center [id number] Bilirubin Ql (U) Negative Normal Comprehe nsive Internal Medicine Work Phone: Comment on above: Test(s) 596102-LSY-D ; 002856-QSD-U; 571255-FQC-S; 056949-Joajlmdetmoez; 610209-Njxsozhrxdx, Total; 323466-XNH-L (Total);752683-Ziofp LDL-P; 184673-BPW Size; 850185-ON-YL Scorewas developed and its performance characteristics determinedby Piper. It has not been cleared or approved by the Foodand Drug Administration.PATIENT WAS FASTINGPERFORMED BY: AdNear [address] [id number] BY: Solicore[address] [facility] [id number] Bilirubin Ql (U) Negative Normal Comprehe nsive Internal Medicine; [facility] Work Phone: Comment on above: Test(s) 712902-HZG-A ; 197529-RWH-A; 474783-LCM-M; 849147-Hwypsftfadjdt; 075877-Pqprsvmgucr, Total; 794511-BMZ-L (Total);482753-Vuwzs LDL-P; 240137-OBL Size; 839233-FR-II Scorewas developed and its performance characteristics determinedby Piper. It has not been cleared or approved by the Foodand Drug Administration.PATIENT WAS FASTINGPERFORMED BY: AdNear [address] [id number] BY: Public[employer] [facility] [id number] Color (U) Yellow Normal [facility] Work Phone: Comment on above: Test(s) 925192-FZT-H ; 593497-FQH-L; 710361-BFN-Q; 282588-Ewnshhtvfpiky; 912390-Dngjscavwrt, Total; 022934-LPF-D (Total);720835-Kimrz LDL-P; 758374-CCQ Size; 179299-GU-CW Scorewas developed and its performance characteristics determinedby Piper. It has not been cleared or approved by the Foodand Drug Administration.PATIENT WAS FASTINGPERFORMED BY: AdNear [address] [id number] BY: [facility] [facility] [id number] Glucose Ql (U) Negative Normal Comprehens arianna Internal Medicine Work Phone: Comment on above: Test(s) 512846-XTK-I ; 648709-XVH-J; 904702-KDD-G; 227839-Pqiulkevasprw; 965215-Vhdoumsjuit, Total; 402666-YNN-R (Total);734119-Izvqe LDL-P; 751193-GFR Size; 688526-XT-MZ Scorewas developed and its performance characteristics determinedby Piper. It has not been cleared or approved by the Foodand Drug Administration.PATIENT WAS FASTINGPERFORMED BY: AdNear [address] [id number] BY: IKOTECH Sojnzd0007 [facility] [id number] Glucose Ql (U) Negative Normal Comprehens arianna Internal Medicine; [facility] Work Phone: Comment on above: Test(s) 952622-EVQ-X ; 281188-FOD-T; 886966-UDF-W; 956081-Pmyltmlqhcwdg; 602879-Sbbmwcsogfq, Total; 775342-KEN-R (Total);770222-Drflb LDL-P; 829108-TYF Size; 300977-LK-UX Scorewas developed and its performance characteristics determinedby Piper. It has not been cleared or approved by the Foodand Drug Administration.PATIENT WAS FASTINGPERFORMED BY: AdNear [address] [id number] BY: [facility] [facility] [id number] Hemoglobin Ql (U) Negative Normal Compreh ensive Internal Medicine Work Phone: Comment on above: Test(s) 989666-WLH-M ; 814462-HLC-K; 142195-UJL-H; 237176-Belvmtblgqdvb; 146801-Oxnpfzycqsw, Total; 595576-GFF-H (Total);172589-Qlxcd LDL-P; 982446-QDF Size; 357019-HG-AH Scorewas developed and its performance characteristics determinedby Piper. It has not been cleared or approved by the Foodand Drug Administration.PATIENT WAS FASTINGPERFORMED BY: AdNear [address] [id number] BY: IKOTECH Poagee[address] [facility] [id number] Hemoglobin Ql (U) Negative Normal Compreh ensive Internal Medicine; [facility] Work Phone: Comment on above: Test(s) 356598-NRK-U ; 275624-VLC-X; 488347-PEQ-A; 265291-Ifqdubpulozqa; 436632-Ndsgwbdoioe, Total; 833886-ZTU-O (Total);732927-Vgxqh LDL-P; 988333-UHG Size; 506269-QN-TW Scorewas developed and its performance characteristics determinedby Piper. It has not been cleared or approved by the Foodand Drug Administration.PATIENT WAS FASTINGPERFORMED BY: AdNear [address] [id number] BY: Celaton Zskkxm5[address] [facility] [id number] Ketones Ql (U) Negative Normal Comprehens arianna Internal Medicine Work Phone: Comment on above: Test(s) 648914-JWV-P ; 802885-BZP-P; 317895-HCQ-V; 597638-Lknovfudalujq; 814478-Ufeuadzusha, Total; 124481-NWF-V (Total);969443-Rirrr LDL-P; 880537-EKI Size; 891056-DA-DK Scorewas developed and its performance characteristics determinedby Piper. It has not been cleared or approved by the Foodand Drug Administration.PATIENT WAS FASTINGPERFORMED BY: AdNear [address] [id number] BY: Solicore6370 [facility] [id number] Ketones Ql (U) Negative Normal Comprehens arianna Internal Medicine; [facility] Work Phone: Comment on above: Test(s) 115283-ZDV-F ; 326500-XMS-X; 621281-UUP-N; 647607-Lotturiyksuqt; 075053-Scpxiugonzy, Total; 738664-EMC-S (Total);049084-Uolah LDL-P; 131359-DNU Size; 256914-FA-BM Scorewas developed and its performance characteristics determinedby Piper. It has not been cleared or approved by the Foodand Drug Administration.PATIENT WAS FASTINGPERFORMED BY: AdNear [address] [id number] BY: Members[employer]ite Fvmtho[address] [facility] [id number] Leukocyte esterase Test strip Ql (U) Negative Normal [facility] Work Phone: Comment on above: Test(s) 666590-PWN-P ; 480334-KVW-J; 372971-SUE-J; 286485-Ftgdhnpqygfdw; 069036-Fvwwwygytkn, Total; 835245-XTK-C (Total);787046-Dxzuq LDL-P; 781439-FHZ Size; 067081-ZB-II Scorewas developed and its performance characteristics determinedby Piper. It has not been cleared or approved by the Foodand Drug Administration.PATIENT WAS FASTINGPERFORMED BY: AdNear [address] [id number] BY: [facility]iaWashington [facility] Medical Center [id number] Leukocyte esterase Test strip Ql (U) Negative Normal [facility]; [facility] Work Phone: Comment on above: Test(s) 650848-YZH-E ; 079964-YVC-Z; 250156-KHX-O; 120421-Svepsdzarbgir; 050064-Exlxaoqvjsh, Total; 958862-ELN-I (Total);733385-Infay LDL-P; 537196-YXO Size; 625476-TG-SD Scorewas developed and its performance characteristics determinedby Piper. It has not been cleared or approved by the Foodand Drug Administration.PATIENT WAS FASTINGPERFORMED BY: AdNear [address] [id number] BY: [facility]70 CENXWashington Regional Medical Center [id number] Microscopic observation LM Nom (Urine sed) MICRON Normal [facility] Work Phone: Comment on above: Microscopic follows if indicated. Test(s) 766866-GJT-N ; 643630-TIX-A; 521558-MMR-I; 837605-Mvierrkhkwjsh; 440198-Jwhkglezlij, Total; 957173-WDE-Y (Total);606451-Mhkml LDL-P; 139780-VJH Size; 711847-DV-AT Scorewas developed and its performance characteristics determinedby Piper. It has not been cleared or approved by the Foodand Drug Administration.PATIENT WAS FASTINGPERFORMED BY: AdNear [address] [id number] BY: [facility]70 [facility]XWashington Regional Medical Center [id number] Microscopic observation LM Nom (Urine sed) See below: Normal [facility] Work Phone: Comment on above: Microscopic was lynnette cated and was performed. Test(s) 433293-WPM-K ; 752901-OOB-J; 178375-TGY-D; 879399-Dlvvzyjobiloh; 106808-Vnousvpjari, Total; 104991-ZXU-D (Total);858419-Wfaia LDL-P; 527463-GJN Size; 735148-MZ-AQ Scorewas developed and its performance characteristics determinedby [employer]. It has not been cleared or approved by the Foodand Drug Administration.PATIENT WAS FASTINGPERFORMED BY: Cover Lockscreen[address] [id number] BY: [facility] [facility] [id number] Nitrite Ql (U) Negative Normal Comprehens arianna [facility] Medicine Work Phone: Comment on above: Test(s) 539131-IAE-Q ; 412964-HTH-O; 147364-SUJ-R; 080385-Qvuthfioihjmw; 332503-Hzcceobcjot, Total; 299194-ZNB-F (Total);921559-Shqnh LDL-P; 411289-UFO Size; 173494-CU-WA Scorewas developed and its performance characteristics determinedby [employer]. It has not been cleared or approved by the Foodand Drug Administration.PATIENT WAS FASTINGPERFORMED BY: Cover Lockscreen[address] [id number] BY: IKOTECH Ylxyyp5902 [facility] [id number] Nitrite Ql (U) Negative Normal Comprehens [facility]; [facility] Work Phone: Comment on above: Test(s) 068115-HTJ-R ; 507442-CPF-X; 424626-FOR-B; 479101-Ejqscoyphfvsg; 339009-Kbechmevmie, Total; 159404-PCQ-I (Total);881675-Zgpmv LDL-P; 441445-THI Size; 798961-NZ-HQ Scorewas developed and its performance characteristics determinedby Piper. It has not been cleared or approved by the Foodand Drug Administration.PATIENT WAS FASTINGPERFORMED BY: Celaton[address] [id number] BY: CelatonJersey Shore University Medical CenterMbhvjk1414 [facility] [id number] pH (U) 7.0 [pH] Normal 5.0-7.5 [facility] Work Phone: Comment on above: Test(s) 553347-ZXQ-X ; 422645-WBN-Z; 860216-WZX-Z; 754517-Qnhrzlnllhdjh; 375973-Dudfsizkwce, Total; 110757-ICC-W (Total);302885-Ohzdw LDL-P; 271504-DUZ Size; 691452-TX-TH Scorewas developed and its performance characteristics determinedby [employer]. It has not been cleared or approved by the Foodand Drug Administration.PATIENT WAS FASTINGPERFORMED BY: Piper [address] [id number] BY: [facility]atonUNM Psychiatric CenterSvhfye7600 [facility] [id number] Protein Ql (U) Negative Normal Comprehens arianna [facility] Work Phone: Comment on above: Test(s) 702756-ESL-A ; 977642-LZF-O; 637407-GZU-X; 577066-Mwzbpyotiwtej; 702636-Emtrwurcarf, Total; 674081-GEW-G (Total);088735-Zpjqm LDL-P; 351540-CBW Size; 346334-NE-OF Scorewas developed and its performance characteristics determinedby [employer]. It has not been cleared or approved by the Foodand Drug Administration.PATIENT WAS FASTINGPERFORMED BY: Celaton[address] [id number] BY: CelatonJer[facility] Shore University Medical CenterPdqxhw0717 [facility] [id number] Protein Ql (U) Negative Normal Comprehens [facility]; [facility] Work Phone: Comment on above: Test(s) 512590-ABC-D ; 335127-QDC-M; 394125-UPI-O; 549698-Fmwpadodevcpk; 905501-Wsibpyemtuv, Total; 267081-RAY-M (Total);282992-Xghkl LDL-P; 862605-UOP Size; 976737-LM-LU Scorewas developed and its performance characteristics determinedby [employer]per. It has not been cleared or approved by the Foodand Drug Administration.PATIENT WAS FASTINGPERFORMED BY: AdNear [address] [id number] BY: [facility] [id number] Specific gravity (U) [Rel density] 1.016 1 Normal 1.005-1.03 0 [facility] Work Phone: Comment on above: Test(s) 487186-LIO-Y ; 415763-NTT-V; 807243-UTV-B; 081751-Eqpefflzbsrzv; 646574-Yoxggtcrsmb, Total; 570601-XJS-J (Total);836703-Ttcrq LDL-P; 421932-ZZT Size; 133952-AU-HA Scorewas developed and its performance characteristics determinedby Piper. It has not been cleared or approved by the Foodand Drug Administration.PATIENT WAS FASTINGPERFORMED BY: AdNear [address] [id number] BY: IKOTECH Pinnwi8751 [facility] [id number] Urobilinogen (U) [Mass/Vol] 0.2 mg/dL Normal 0.2-1.0 [facility]; [facility] Work Phone: Comment on above: Test(s) 092562-DNT-Y ; 564836-VYE-A; 173111-KZS-F; 333780-Ykkqejlxxupdm; 698342-Xejxgfvqhrs, Total; 671402-AKR-P (Total);397502-Vwzof LDL-P; 789463-QJX Size; 051999-JS-MH Scorewas developed and its performance characteristics determinedby [employer]per. It has not been cleared or approved by the Foodand Drug Administration.PATIENT WAS FASTINGPERFORMED BY: [place]atonTr[place] [address] [facility] [id number] BY: CelatonJersey Shore University Medical CenterOacxpk6489 [facility] [id number] Urobilinogen Test strip (U) [Mass/Vol] 0.2 mg/dL Normal 0.2-1.0 [facility] Work Phone: Comment on above: Test(s) 569863-UED-S ; 601860-AUQ-H; 857954-PIH-E; 679972-Ixirzrjahqcap; 271997-Drvibnoluro, Total; 274210-GSS-L (Total);250037-Cflee LDL-P; 310788-NNT Size; 488034-RN-SI Scorewas developed and its performance characteristics determinedby [employer]per. It has not been cleared or approved by the Foodand Drug Administration.PATIENT WAS FASTINGPERFORMED BY: Celaton[address] [id number] BY: CelatonJer[facility] Shore University Medical CenterBqbzjz3702 [facility] [id number] XR TOE 3V AP/LAT/OBL RTon XR TOE [...] medial tuft of the first distal phalanx. Rivet Tosser: PSCB Transcribe Date/Time: Dec 22 2019 9:17P Dictated by : BROOK THAKKAR MD This examination was interpreted and the report reviewed and electronically signed by: BROOK THAKKAR MD on Dec 22 2019 9:19PM EST Normal [facility] CBC with auto diff (79966)Or dered By: Machine Operator on 04-13-2019 Basophils (Bld) [#/Vol] 0.1 {x10E3/uL} Normal 0.0-0.2 [facility] Work Phone: Comment on above: Test(s) 112257-GQI-Y ; 358807-JLF-T; 242326-CGJ-E; 635251-Imdgmcxpfipxd; 903064-Dkomeujdzmn, Total; 839595-XBI-E (Total);448706-Kptmx LDL-P; 345176-FTA Size; 105280-SM-TA Scorewas developed and its performance characteristics determinedby Piper. It has not been cleared or approved by the Foodand Drug Administration.PATIENT WAS FASTINGPERFORMED BY: Cover Lockscreenton[address] [place] [address] [id number] BY: [facility]Washington [facility] [id number] Basophils (Bld) [#/Vol] 0.1 10*3/uL Normal 0.0-0.2 [facility]; [facility] Work Phone: Comment on above: Test(s) 087809-OTH-Y ; 511112-OFJ-J; 073635-HVL-V; 640918-Afpfdhosobqbs; 885190-Aoqxpxezjpp, Total; 516903-IDS-T (Total);273339-Dgezx LDL-P; 402808-KCC Size; 614415-CP-QV Scorewas developed and its performance characteristics determinedby [employer]per. It has not been cleared or approved by the Foodand Drug Administration.PATIENT WAS FASTINGPERFORMED BY: Cover Lockscreenton1447 [facility] [id number] BY: [facility]70 [facility] Center [id number] Basophils/100 WBC (Bld) 1 % Normal C omprehensive Internal Medicine Work Phone: Comment on above: Test(s) 929688-JNG-F ; 004538-RRD-O; 434491-NGT-T; 618637-Dxgrnvwzqkngl; 712044-Nbtscreyvdd, Total; 315641-EBB-N (Total);567021-Uojrp LDL-P; 368339-QGM Size; 302277-PP-BT Scorewas developed and its performance characteristics determinedby Piper. It has not been cleared or approved by the Foodand Drug Administration.PATIENT WAS FASTINGPERFORMED BY: [address] [id number] BY: [address] [id number] Eosinophils (Bld) [#/Vol] 0.4 {x10E3/uL} Normal 0.0-0.4 [facility] Work Phone: Comment on above: Test(s) 298801-SVC-I ; 038082-XQV-K; 899898-OVU-P; 043154-Zyfuozdplcbkb; 912146-Lnhbesarfis, Total; 035916-BMO-H (Total);622972-Vyqxk LDL-P; 628219-MPR Size; 706539-TJ-UH Scorewas developed and its performance characteristics determinedby [employer]per. It has not been cleared or approved by the Foodand Drug Administration.PATIENT WAS FASTINGPERFORMED BY: Mindscape[address] [id number] BY: CelatonJersey Shore University Medical CenterTmfhan99[address] [facility] [id number] Eosinophils (Bld) [#/Vol] 0.4 10*3/uL Normal 0.0-0.4 [facility]; [facility] Work Phone: Comment on above: Test(s) 006097-XTO-Z ; 399032-EIZ-L; 867836-NPJ-M; 505674-Ziwwyawtdthem; 008981-Rtgzpaaxmvp, Total; 584829-DDZ-F (Total);884140-Wezvj LDL-P; 504832-WRD Size; 459743-KV-NS Scorewas developed and its performance characteristics determinedby Piper. It has not been cleared or approved by the Foodand Drug Administration.PATIENT WAS FASTINGPERFORMED BY: AdNear [address] [id number] BY: [facility]70 [facility] [id number] Eosinophils/100 WBC (Bld) 5 % Normal [facility] Work Phone: Comment on above: Test(s) 994973-JCG-D ; 334844-ZYG-V; 412309-QSJ-J; 097312-Dxetelexpujdx; 062588-Pbamiinhddq, Total; 700178-HML-J (Total);817764-Xaqun LDL-P; 261039-GAV Size; 954973-MY-BH Scorewas developed and its performance characteristics determinedby Piper. It has not been cleared or approved by the Foodand Drug Administration.PATIENT WAS FASTINGPERFORMED BY: AdNear [address] [id number] BY: [facility]70 [facility] [id number] Erythrocyte distribution width (RBC) [Ratio] 14.8 % Normal 12.3-15.4 [facility] Work Phone: Comment on above: Test(s) 095593-VUM-D ; 652940-YFK-L; 890178-HZU-B; 565682-Ceznjirngyrki; 556480-Xycyrlwwtjj, Total; 465130-DLX-I (Total);573869-Xfpqk LDL-P; 455776-IQV Size; 509453-RQ-IC Scorewas developed and its performance characteristics determinedby Piper. It has not been cleared or approved by the Foodand Drug Administration.PATIENT WAS FASTINGPERFORMED BY: AdNear [address] [id number] BY: Kaazinglin6370 [address] [facility]Critical [facility] [id number] Hematocrit (Bld) [Volume fraction] 44.9 % Normal 37.5-51.0 [facility] Work Phone: Comment on above: Test(s) 250388-CGQ-I ; 137750-KPJ-N; 830239-KCJ-Q; 530322-Briigopzsiqla; 561320-Mhsqwoabtqx, Total; 922917-RXH-J (Total);494290-Znmdu LDL-P; 363466-WSN Size; 771221-VO-XN Scorewas developed and its performance characteristics determinedby Piper. It has not been cleared or approved by the Foodand Drug Administration.PATIENT WAS FASTINGPERFORMED BY: AdNear [address] [id number] BY: IKOTECH Zubrbe26[address] [facility] [id number] Hemoglobin (Bld) [Mass/Vol] 15.7 g/dL Normal 13.0-17.7 [facility] Work Phone: Comment on above: Test(s) 515570-RBK-D ; 666554-TXJ-A; 918730-DVU-A; 556120-Jkmltmhxslxmr; 397435-Merebnlgaoi, Total; 757500-CPT-H (Total);573414-Husnx LDL-P; 716910-DZB Size; 009809-IL-OO Scorewas developed and its performance characteristics determinedby Piper. It has not been cleared or approved by the Foodand Drug Administration.PATIENT WAS FASTINGPERFORMED BY: AdNear [address] [id number] BY: IKOTECH Jjqlmh3588 [facility] [id number] Immature granulocytes (Bld) [#/Vol] 0.0 {x10E3/uL} Normal 0.0-0.1 [facility] Work Phone: Comment on above: Test(s) 899968-GXV-L ; 746539-AVB-C; 129222-XQH-F; 299092-Yomdvvnojxpkh; 551823-Etvfhdyajgm, Total; 627501-ERW-F (Total);892725-Saeig LDL-P; 793192-TVY Size; 145463-IG-KF Scorewas developed and its performance characteristics determinedby Piper. It has not been cleared or approved by the Foodand Drug Administration.PATIENT WAS FASTINGPERFORMED BY: BN LabCo[address] [id number] BY: CelatonJersey Shore University Medical CenterKqroxo7445 [facility] [id number] Immature granulocytes (Bld) [#/Vol] 0.0 10*3/uL Normal 0.0-0.1 [facility]; [facility] Work Phone: Comment on above: Test(s) 484170-HGC-U ; 979606-XVH-A; 033868-GVA-E; 336034-Xpjxruffgrsyq; 685602-Fujqiduzxlh, Total; 628656-ICC-Q (Total);092351-Nncgv LDL-P; 945056-WUF Size; 438037-WV-RU Scorewas developed and its performance characteristics determinedby Piper. It has not been cleared or approved by the Foodand Drug Administration.PATIENT WAS FASTINGPERFORMED BY: AdNear [address] [id number] BY: Solicore[address] [facility] [id number] Immature granulocytes/100 WBC (Bld) 0 % Normal [facility] Work Phone: Comment on above: Test(s) 357948-XPH-D ; 337658-XOA-Q; 799415-KRR-Y; 027881-Meefyzzufkqab; 778829-Vluhlwbnnhk, Total; 874954-VIP-Z (Total);833605-Llbsr LDL-P; 760967-NAW Size; 949718-CE-GB Scorewas developed and its performance characteristics determinedby Piper. It has not been cleared or approved by the Foodand Drug Administration.PATIENT WAS FASTINGPERFORMED BY: Engiver[address] [id number] BY: MembersuiteJersey Shore University Medical CenterJtoggc0059 [facility] [id number] Lymphocytes (Bld) [#/Vol] 2.0 {x10E3/uL} Normal 0.7-3.1 [facility] Work Phone: Comment on above: Test(s) 851593-ZMO-H ; 173314-LEC-N; 395555-ZRD-R; 740685-Zlogzdcwoxdea; 025693-Xpawnerczdp, Total; 891255-DEZ-D (Total);956895-Yqbta LDL-P; 474497-TJZ Size; 251491-FD-KJ Scorewas developed and its performance characteristics determinedby Piper. It has not been cleared or approved by the Foodand Drug Administration.PATIENT WAS FASTINGPERFORMED BY: AdNear [address] [id number] BY: IKOTECH Jufxbj2298 [facility] [id number] Lymphocytes (Bld) [#/Vol] 2.0 10*3/uL Normal 0.7-3.1 [facility]; [facility] Work Phone: Comment on above: Test(s) 386166-TNQ-H ; 407473-AVN-M; 737567-PZO-E; 869020-Fvoqrhbzsqice; 252169-Spfqolsauml, Total; 564191-JIM-K (Total);198390-Loueo LDL-P; 623328-PDL Size; 863893-KM-ED Scorewas developed and its performance characteristics determinedby Piper. It has not been cleared or approved by the Foodand Drug Administration.PATIENT WAS FASTINGPERFORMED BY: AdNear [address] [id number] BY: Solicore[address] [facility] [id number] Lymphocytes/100 WBC (Bld) 28 % Normal [facility] Work Phone: Comment on above: Test(s) 628764-DFN-K ; 921739-YKV-G; 488320-HYZ-W; 448554-Smtdrhcpcoxtv; 012804-Pewquxebpid, Total; 815792-UAZ-N (Total);100577-Hvvcu LDL-P; 232219-ROT Size; 515782-PE-AY Scorewas developed and its performance characteristics determinedby Piper. It has not been cleared or approved by the Foodand Drug Administration.PATIENT WAS FASTINGPERFORMED BY: AdNear Bfxuebxmlk1883 [facility] [id number] BY: Membersuite Akeetm99[address] [facility] [id number] MCH (RBC) [Entitic mass] 28.4 pg Normal 26.6-33.0 [facility] Internal Medicine Work Phone: Comment on above: Test(s) 788676-YTE-O ; 154272-EZZ-P; 181393-UMB-D; 078293-Sunfqnqhhcjxg; 598818-Eqgirkdwozk, Total; 870903-PPL-G (Total);409835-Rqzdd LDL-P; 759741-EHQ Size; 954298-NS-GF Scorewas developed and its performance characteristics determinedby Piper. It has not been cleared or approved by the Foodand Drug Administration.PATIENT WAS FASTINGPERFORMED BY: AdNear [address] [id number] BY: [facility] [facility] [id number] MCHC (RBC) [Mass/Vol] 35.0 g/dL Normal 31.5-35.7 [facility] Internal Medicine Work Phone: Comment on above: Test(s) 395484-NWM-L ; 265884-NUW-P; 904325-OSH-N; 360970-Lfxuzinjalzvg; 728385-Hpypjapygwn, Total; 395339-GEQ-M (Total);013790-Umwsf LDL-P; 202330-EKB Size; 466539-ID-PT Scorewas developed and its performance characteristics determinedby Piper. It has not been cleared or approved by the Foodand Drug Administration.PATIENT WAS FASTINGPERFORMED BY: AdNear [address] [id number] BY: Kaazinglin6[address] [facility] [id number] MCV (RBC) [Entitic vol] 81 fL Normal 79-97 C [facility] Internal Medicine Work Phone: Comment on above: Test(s) 602222-DHR-S ; 065578-BFI-D; 309893-RVU-M; 567434-Qmfjhkaydtvgl; 269286-Neipgcofmki, Total; 207072-YFD-Z (Total);279044-Daryj LDL-P; 725706-PSF Size; 801091-IE-FX Scorewas developed and its performance characteristics determinedby Piper. It has not been cleared or approved by the Foodand Drug Administration.PATIENT WAS FASTINGPERFORMED BY: Celaton[address] [id number] BY: CelatonLaurie [place] 3672870 [facility] [id number] Monocytes (Bld) [#/Vol] 0.6 {x10E3/uL} Normal 0.1-0.9 [facility] Work Phone: Comment on above: Test(s) 621223-UUX-A ; 644794-IGW-C; 395492-IVS-K; 142939-Srdocoeralkqn; 559490-Xzbvdxrvcch, Total; 706808-JTJ-R (Total);177972-Padhm LDL-P; 257944-ZRK Size; 133633-DV-AD Scorewas developed and its performance characteristics determinedby Piper. It has not been cleared or approved by the Foodand Drug Administration.PATIENT WAS FASTINGPERFORMED BY: Celaton[address] [id number] BY: CelatonJersey Shore University Medical CenterKaojyt2171 [facility] [id number] Monocytes (Bld) [#/Vol] 0.6 10*3/uL Normal 0.1-0.9 [facility]; [facility] Work Phone: Comment on above: Test(s) 671482-IIY-J ; 744370-JWW-G; 741866-NGI-J; 125886-Ukzqwekmkhlkm; 593875-Oprwfqxgzgw, Total; 691579-NWE-B (Total);672517-Zepsq LDL-P; 876879-MLD Size; 330347-PE-YE Scorewas developed and its performance characteristics determinedby Piper. It has not been cleared or approved by the Foodand Drug Administration.PATIENT WAS FASTINGPERFORMED BY: Engiver[address] [id number] BY: Celaton Dopndn4463 [address] [facility]Critical [facility] hospital [id number] Monocytes/100 WBC (Bld) 8 % Normal C [facility]mpst. [facility] hospitalensive Internal Medicine Work Phone: Comment on above: Test(s) 410471-WFK-K ; 895900-AVV-B; 233983-LJC-K; 363347-Wnhmnpaoxtsqa; 151104-Fdkqhaeudfx, Total; 960588-ETN-X (Total);448943-Xdllz LDL-P; 486596-GKN Size; 545575-YO-BJ Scorewas developed and its performance characteristics determinedby Piper. It has not been cleared or approved by the Foodand Drug Administration.PATIENT WAS FASTINGPERFORMED BY: AdNear [address] [id number] BY: [facility] [facility] [id number] Neutrophils (Bld) [#/Vol] 4.1 {x10E3/uL} Normal 1.4-7.0 [facility] Work Phone: Comment on above: Test(s) 190902-RCS-K ; 755970-JDO-S; 007636-HQO-O; 611796-Abidizpizdeqc; 327766-Ozzhgnljonh, Total; 671577-DYY-E (Total);603867-Wwhss LDL-P; 105320-LTS Size; 763232-GJ-TL Scorewas developed and its performance characteristics determinedby Piper. It has not been cleared or approved by the Foodand Drug Administration.PATIENT WAS FASTINGPERFORMED BY: AdNear [address] [id number] BY: Celaton Vslbfa8945 [facility] [id number] Neutrophils (Bld) [#/Vol] 4.1 10*3/uL Normal 1.4-7.0 [facility]; [facility] Work Phone: Comment on above: Test(s) 463933-DTC-I ; 308945-NFL-B; 575039-TIU-F; 415107-Knmxmrnpghjdm; 191393-Dravlzwmfbd, Total; 199383-DTK-H (Total);669434-Sywqy LDL-P; 184867-ZKR Size; 076287-JD-OJ Scorewas developed and its performance characteristics determinedby Piper. It has not been cleared or approved by the Foodand Drug Administration.PATIENT WAS FASTINGPERFORMED BY: AdNear [address] [id number] BY: [facility] [facility] [id number] Neutrophils/100 WBC (Bld) 58 % Normal [facility] Work Phone: Comment on above: Test(s) 047124-ZZG-K ; 803151-JSX-B; 971071-ERT-Q; 727125-Hpmxmcrpugmqq; 287172-Bamwpmkuueg, Total; 006261-GYR-W (Total);984471-Kxniv LDL-P; 519172-GCL Size; 963421-LA-CR Scorewas developed and its performance characteristics determinedby Piper. It has not been cleared or approved by the Foodand Drug Administration.PATIENT WAS FASTINGPERFORMED BY: AdNear [address] [id number] BY: Solicore[address] [facility] [id number] Platelets (Bld) [#/Vol] 263 {x10E3/uL} Normal 150-450 [facility] Work Phone: Comment on above: Test(s) 193744-KFS-H ; 592457-HWH-W; 452706-ACA-S; 763351-Djeasratuqcbp; 121434-Poryibpryij, Total; 433259-AIO-L (Total);307526-Jqhyc LDL-P; 604038-TEN Size; 811232-CF-GI Scorewas developed and its performance characteristics determinedby Piper. It has not been cleared or approved by the Foodand Drug Administration.PATIENT WAS FASTINGPERFORMED BY: BN LabCo[address] [id number] BY: Celaton Xmqaor8730 [facility] [id number] Platelets (Bld) [#/Vol] 263 10*3/uL Normal 150-450 [facility]; [facility] Work Phone: Comment on above: Test(s) 282119-IZA-Y ; 445978-JAP-P; 961367-NVV-R; 756705-Ftzbdezuiedkq; 983727-Dvnwpgjonti, Total; 095823-GUZ-O (Total);471269-Dnxrb LDL-P; 075249-HIJ Size; 275853-WQ-TU Scorewas developed and its performance characteristics determinedby Piper. It has not been cleared or approved by the Foodand Drug Administration.PATIENT WAS FASTINGPERFORMED BY: [employer] [id number] BY: [employer] [facility] [id number] RBC (Bld) [#/Vol] 5.52 {x10E6/uL} Normal 4.14-5.80 [facility] Internal [facility] Work Phone: Comment on above: Test(s) 664094-ATI-Y ; 109944-RDH-Y; 623464-OUU-G; 491513-Dtmdeyjaqmdif; 711513-Tkfoharmjbo, Total; 086141-TBV-P (Total);640474-Bttep LDL-P; 187296-WKZ Size; 950403-EY-ZD Scorewas developed and its performance characteristics determinedby Piper. It has not been cleared or approved by the Foodand Drug Administration.PATIENT WAS FASTINGPERFORMED BY: Piper [address] [id number] BY: Celaton Fxlcwc7[address] [facility] [id number] RBC (Bld) [#/Vol] 5.52 10*6/uL Normal 4.14-5.80 [facility] Internal Medicine; [facility] Internal Medicine Work Phone: Comment on above: Test(s) 924519-JET-Z ; 569884-XGR-Y; 216814-LAQ-Q; 708167-Ozzasjbyklcki; 488685-Qppysyqxumo, Total; 155642-MSB-F (Total);059338-Rrgna LDL-P; 315882-VWH Size; 584578-IZ-LL Scorewas developed and its performance characteristics determinedby Piper. It has not been cleared or approved by the Foodand Drug Administration.PATIENT WAS FASTINGPERFORMED BY: AdNear [address] [id number] BY: IKOTECH Nxqrip27[address] [facility] [id number] WBC (Bld) [#/Vol] 7.1 {x10E3/uL} Normal 3.4-10.8 [facility] Work Phone: Comment on above: Test(s) 186958-TBB-G ; 896207-NDR-O; 168126-ATD-Y; 540443-Bvwlrffvzuant; 977314-Drorniektpf, Total; 903033-WIT-J (Total);103609-Ijsdl LDL-P; 668561-IFA Size; 702833-KA-KN Scorewas developed and its performance characteristics determinedby Piper. It has not been cleared or approved by the Foodand Drug Administration.PATIENT WAS FASTINGPERFORMED BY: AdNear [address] [id number] BY: Solicore[address] [facility] [id number] WBC (Bld) [#/Vol] 7.1 10*3/uL Normal 3.4-10.8 [facility] Internal Medicine; [facility] Work Phone: Comment on above: Test(s) 323468-ZBM-C ; 355245-KVP-W; 859491-GIC-C; 139870-Jvokhsnyiwada; 619663-Glknnydgklr, Total; 790816-EUH-L (Total);385522-Awahf LDL-P; 951721-BTE Size; 213164-GA-TK Scorewas developed and its performance characteristics determinedby [employer]. It has not been cleared or approved by the Foodand Drug Administration.PATIENT WAS FASTINGPERFORMED BY: [employer] [address] [id number] BY: [place] [id number] [facility] [id number] METABOLIC PANEL, COMPREHENSI VE ([id number])Ordered By: Machine Operator on 04-13-2019 Albumin [Mass/Vol] 4.4 g/dL Normal 3.5-5.5 [facility] Internal Medicine Work Phone: Comment on above: Test(s) 696424-YSK-V ; 180402-YRB-J; 770619-KAO-Q; 484012-Kguiymggsgesl; 595100-Fooatrrlzdt, Total; 254504-VOJ-P (Total);208853-Hfryg LDL-P; 654390-FPU Size; 936247-OP-DJ Scorewas developed and its performance characteristics determinedby Piper. It has not been cleared or approved by the Foodand Drug Administration.PATIENT WAS FASTINGPERFORMED BY: AdNear [address] [id number] BY: [facility] [facility] [id number] Albumin/Globulin [Mass ratio] 1.6 {ratio} Normal 1.2-2.2 [facility] Internal Medicine Work Phone: Comment on above: Test(s) 997644-CYH-R ; 488306-JRD-H; 866841-BXZ-U; 593454-Hflygxrlwolqg; 041094-Nwitfrqezby, Total; 382114-ZQZ-Q (Total);942888-Ewjvf LDL-P; 380404-OVK Size; 329238-SF-GT Scorewas developed and its performance characteristics determinedby Piper. It has not been cleared or approved by the Foodand Drug Administration.PATIENT WAS FASTINGPERFORMED BY: AdNear [address] [id number] BY: IKOTECH Rjokyu4335 [facility] [id number] ALP [Catalytic activity/Vol] 83 [iU]/L Normal 39-117 [facility] Work Phone: Comment on above: Test(s) 272482-XDQ-A ; 436095-FUF-D; 834590-UVU-G; 844290-Kvtyxhhedkshy; 400155-Rotlbciwdbx, Total; 291777-RXQ-X (Total);645007-Pabqw LDL-P; 529873-MQQ Size; 952034-TM-CS Scorewas developed and its performance characteristics determinedby Piper. It has not been cleared or approved by the Foodand Drug Administration.PATIENT WAS FASTINGPERFORMED BY: Cover Lockscreen[address] [id number] BY: IKOTECH Iespwt4977 [facility] [id number] ALP [Catalytic activity/Vol] 83 U/L Normal 39-117 [facility]; [facility] Work Phone: Comment on above: Test(s) 309854-FND-U ; 460962-TGL-U; 688186-XJL-V; 495598-Dvsyrvlojfuzl; 407196-Laqukajhsau, Total; 249823-MVU-U (Total);732049-Wbvif LDL-P; 789096-KLV Size; 079934-BV-TX Scorewas developed and its performance characteristics determinedby Piper. It has not been cleared or approved by the Foodand Drug Administration.PATIENT WAS FASTINGPERFORMED BY: Cover Lockscreen[address] [id number] BY: IKOTECH Lpdjze2530 [facility] [id number] ALT [Catalytic activity/Vol] 20 [iU]/L Normal 0-44 [facility] Work Phone: Comment on above: Test(s) 144379-ZHB-Z ; 812551-XLD-Z; 436461-QCO-E; 739544-Fwzwqbvtqyqah; 617995-Ccgoyzaihlx, Total; 733066-ETB-K (Total);272560-Rbcjo LDL-P; 810440-FRX Size; 246982-TH-YU Scorewas developed and its performance characteristics determinedby Piper. It has not been cleared or approved by the Foodand Drug Administration.PATIENT WAS FASTINGPERFORMED BY: Celaton[address] [id number] BY: CelatonJersey Shore University Medical CenterIwegqd7984 [facility] [id number] ALT [Catalytic activity/Vol] 20 U/L Normal 0-44 [facility]; [facility] Work Phone: Comment on above: Test(s) 705013-XVP-G ; 791342-KXT-E; 911300-MAF-O; 459059-Uhjncmchrmygg; 097462-Aszbmgwutdf, Total; 846719-RRN-D (Total);081283-Nmyaw LDL-P; 282589-CHS Size; 634344-EK-SD Scorewas developed and its performance characteristics determinedby Piper. It has not been cleared or approved by the Foodand Drug Administration.PATIENT WAS FASTINGPERFORMED BY: Celaton[address] [id number] BY: CelatonJersey Shore University Medical CenterGgmfpc1416 [facility] [id number] AST [Catalytic activity/Vol] 21 [iU]/L Normal 0-40 [facility] Internal Medicine Work Phone: Comment on above: Test(s) 396310-WII-O ; 310247-SQR-L; 509919-ZZS-Y; 600432-Ckncyqakasioq; 269758-Rzlcxvejfwo, Total; 283124-FAS-Y (Total);616561-Mmwkk LDL-P; 493808-TJQ Size; 314519-WX-CT Scorewas developed and its performance characteristics determinedby Piper. It has not been cleared or approved by the Foodand Drug Administration.PATIENT WAS FASTINGPERFORMED BY: Celaton[address] [id number] BY: CelatonJersey Shore University Medical CenterNbhepo6321 [facility] [id number] AST [Catalytic activity/Vol] 21 U/L Normal 0-40 [facility]; [facility] Work Phone: Comment on above: Test(s) 832124-CSB-Q ; 876721-UFK-V; 328019-THD-S; 547944-Suknxmkbhjuem; 013588-Kkvdpzlxhsm, Total; 283934-HOR-X (Total);605057-Otpqc LDL-P; 969473-PJN Size; 435099-TJ-ZM Scorewas developed and its performance characteristics determinedby Piper. It has not been cleared or approved by the Foodand Drug Administration.PATIENT WAS FASTINGPERFORMED BY: AdNear [address] [id number] BY: [facility] [facility] [id number] Bilirubin [Mass/Vol] 0.5 mg/dL Normal 0.0-1.2 [facility] Internal Medicine Work Phone: Comment on above: Test(s) 862156-RDJ-A ; 357896-EMP-U; 393522-JPZ-F; 421980-Giosmhobuocmk; 956878-Iwjinuqirqt, Total; 581010-FVZ-F (Total);444849-Hznpf LDL-P; 610635-CIX Size; 224286-IJ-BY Scorewas developed and its performance characteristics determinedby Piper. It has not been cleared or approved by the Foodand Drug Administration.PATIENT WAS FASTINGPERFORMED BY: Piper [address] [id number] BY: Solicore[address] [facility] [id number] Calcium [Mass/Vol] 9.2 mg/dL Normal 8.7-10.2 [facility] Internal Medicine Work Phone: Comment on above: Test(s) 003667-JHI-U ; 566144-HXW-N; 540384-QTR-A; 447454-Mkszfuqconpyv; 942052-Zzvltpvsmvj, Total; 226918-KMN-D (Total);262460-Bsiop LDL-P; 524849-ERA Size; 281448-QG-JH Scorewas developed and its performance characteristics determinedby Piper. It has not been cleared or approved by the Foodand Drug Administration.PATIENT WAS FASTINGPERFORMED BY: AdNear [address] [id number] BY: CelatonUNM Psychiatric CenterWoqeyr5867 [facility] [id number] Chloride [Moles/Vol] 104 mmol/L Normal 96-[address] [facility] Work Phone: Comment on above: Test(s) 817264-NJK-I ; 169702-XNV-W; 286401-KVQ-O; 258518-Dkshbpqnqdazp; 329373-Lesflrsvujl, Total; 085005-EWY-H (Total);576585-Ulldw LDL-P; 275334-SWQ Size; 448226-PY-KA Scorewas developed and its performance characteristics determinedby Piper. It has not been cleared or approved by the Foodand Drug Administration.PATIENT WAS FASTINGPERFORMED BY: AdNear [address] [id number] BY: CelatonUNM Psychiatric CenterRtehim2396 [facility] [id number] CO2 [Moles/Vol] 21 mmol/L Normal 20-29 [facility] Internal Medicine Work Phone: Comment on above: Test(s) 871784-GOZ-T ; 772241-ZFM-I; 386817-WPW-L; 688038-Mggzfhofdjjrn; 993335-Xaoyaojsyoo, Total; 214362-NYS-J (Total);756805-Ucwzp LDL-P; 176026-GPL Size; 614310-DC-OK Scorewas developed and its performance characteristics determinedby Piper. It has not been cleared or approved by the Foodand Drug Administration.PATIENT WAS FASTINGPERFORMED BY: AdNear [address] [id number] BY: CelatonJersey Shore University Medical CenterFyghxa62[address] [facility] [id number] Creatinine [Mass/Vol] 0.69 mg/dL Abnormal 0.76-1.27 [facility] Internal Medicine Work Phone: Comment on above: Test(s) 333805-POK-I ; 050514-TRX-W; 087263-UEG-W; 619407-Ienloiagwyzgo; 752689-Hutquihlwxi, Total; 838378-ZKK-B (Total);333057-Ptsqf LDL-P; 077205-QON Size; 658523-RY-HX Scorewas developed and its performance characteristics determinedby Piper. It has not been cleared or approved by the Foodand Drug Administration.PATIENT WAS FASTINGPERFORMED BY: AdNear [address] [id number] BY: [facility] [facility] [id number] GFR/1.73 sq M predicted among blacks CKD-EPI (S/P/Bld) [Vol rate/Area] 121 mL/min/1.73 Normal [facility] Work Phone: Comment on above: Test(s) 386851-RPW-J ; 937695-BQY-A; 649692-DBZ-F; 164670-Wpzskkstzoenz; 624210-Qopiretordd, Total; 484455-QGM-Y (Total);267680-Fnwrj LDL-P; 699752-OVH Size; 653699-ZF-WX Scorewas developed and its performance characteristics determinedby Piper. It has not been cleared or approved by the Foodand Drug Administration.PATIENT WAS FASTINGPERFORMED BY: AdNear [address] [id number] BY: IKOTECH Qaetdt7838 [facility] [id number] GFR/1.73 sq M predicted among non-blacks CKD-EPI (S/P/Bld) [Vol rate/Area] 105 mL/min/1.73 Normal [facility] Work Phone: Comment on above: Test(s) 900544-NRT-H ; 032720-YZE-P; 388356-GHX-Y; 873055-Hhestdjapounq; 263154-Yijcxlzsopg, Total; 185258-PRM-E (Total);898627-Svedi LDL-P; 233219-QYD Size; 235067-HA-ZG Scorewas developed and its performance characteristics determinedby Piper. It has not been cleared or approved by the Foodand Drug Administration.PATIENT WAS FASTINGPERFORMED BY: Celaton[address] [id number] BY: CelatonUNM Psychiatric CenterLjlchi5746 [facility] [id number] Globulin (S) [Mass/Vol] 2.7 g/dL Normal 1.5-4.5 [facility] Internal Medicine Work Phone: Comment on above: Test(s) 445888-NFK-W ; 276577-DOA-X; 462456-AUR-Y; 886995-Pdexacpzrnhwr; 230677-Uasgkprrztp, Total; 597979-NQM-Q (Total);921393-Mcdfi LDL-P; 832535-WUI Size; 716640-UD-UI Scorewas developed and its performance characteristics determinedby Piper. It has not been cleared or approved by the Foodand Drug Administration.PATIENT WAS FASTINGPERFORMED BY: Piper [address] [id number] BY: CelatonUNM Psychiatric CenterSzikwr5821 [facility] [id number] Glucose [Mass/Vol] 89 mg/dL Normal 65-99 [facility] Internal Medicine Work Phone: Comment on above: Test(s) 553330-HWE-K ; 935221-SFS-U; 387825-POZ-P; 059662-Vyeewuagmitph; 111001-Ghlyugxetzw, Total; 011017-ZBO-Q (Total);019945-Avnlq LDL-P; 384512-ZSL Size; 439372-UB-IL Scorewas developed and its performance characteristics determinedby Piper. It has not been cleared or approved by the Foodand Drug Administration.PATIENT WAS FASTINGPERFORMED BY: Celaton[address] [id number] BY: CelatonJersey Shore University Medical CenterEpwyqd99[address] [facility] [id number] Potassium [Moles/Vol] 4.4 mmol/L Normal 3.5-5.2 [facility] Internal Medicine Work Phone: Comment on above: Test(s) 054681-PGH-X ; 597616-VYF-C; 302585-KVU-X; 539816-Fmjvqemtrpzud; 373976-Cgnminbvyul, Total; 803925-RCT-A (Total);985234-Khmaf LDL-P; 964349-IUR Size; 758576-LH-FO Scorewas developed and its performance characteristics determinedby Piper. It has not been cleared or approved by the Foodand Drug Administration.PATIENT WAS FASTINGPERFORMED BY: Cover Lockscreen[address] [id number] BY: [facility]70 [address] [facility] Alto NetworksCritical access hospital [id number] Protein [Mass/Vol] 7.1 g/dL Normal 6.0-8.5 [facility] Internal [facility] Work Phone: Comment on above: Test(s) 768858-QNT-Y ; 309889-UST-S; 577474-PNB-J; 899241-Ulyhbzirbzhxn; 803647-Pairnapampc, Total; 989268-BYH-O (Total);208244-Sxfca LDL-P; 842706-DJS Size; 348264-PQ-OP Scorewas developed and its performance characteristics determinedby Piper. It has not been cleared or approved by the Foodand Drug Administration.PATIENT WAS FASTINGPERFORMED BY: AdNear [address] [id number] BY: Solicore[address] [facility] [id number] Sodium [Moles/Vol] 143 mmol/L Normal 134-144 [facility] Internal Medicine Work Phone: Comment on above: Test(s) 988975-UOB-F ; 255085-XIV-K; 241126-LRB-G; 818451-Osozwbkytzrvh; 967882-Fitcjtvthya, Total; 335017-UNA-H (Total);594715-Pmqry LDL-P; 958016-FOI Size; 044076-ZR-MU Scorewas developed and its performance characteristics determinedby Piper. It has not been cleared or approved by the Foodand Drug Administration.PATIENT WAS FASTINGPERFORMED BY: AdNear [address] [id number] BY: MembersuiteUNM Psychiatric CenterPrkavu6682 [facility] [id number] Urea nitrogen [Mass/Vol] 13 mg/dL Normal 6-24 [facility] Work Phone: Comment on above: Test(s) 005296-AHQ-A ; 175409-VVF-U; 314489-ZTQ-J; 426336-Wbilyeehqznby; 964410-Uymkrsnjlae, Total; 252301-YTL-J (Total);406557-Xkhuz LDL-P; 291559-VRA Size; 180303-PU-UN Scorewas developed and its performance characteristics determinedby Piper. It has not been cleared or approved by the Foodand Drug Administration.PATIENT WAS FASTINGPERFORMED BY: Cover Lockscreen[address] [id number] BY: [facility] [facility] [id number] Urea nitrogen/Creatinine [Mass ratio] 19 mg/mg Normal 9-20 [facility] Work Phone: Comment on above: Test(s) 751899-MGJ-O ; 699837-WKJ-U; 551796-LLE-L; 003119-Ksnpotmxctvmr; 400740-Bujsddafzkj, Total; 566884-HHN-X (Total);679560-Sqyiw LDL-P; 089448-KON Size; 486982-ZM-KZ Scorewas developed and its performance characteristics determinedby Piper. It has not been cleared or approved by the Foodand Drug Administration.PATIENT WAS FASTINGPERFORMED BY: AdNear [address] [id number] BY: IKOTECH Ytjmlj15[address] [facility] [id number] MICROALBUMINOrdered By: Syst em Headend Technician on 04-13-2019 Albumin DL <= 20 mg/L (U) [Mass/Vol] 3.8 ug/mL Normal [facility] Work Phone: Comment on above: Test(s) 381330-LYM-Y ; 385217-WWE-D; 124355-TFH-O; 822656-Oebyrlgtbajjl; 510984-Cgareqogmst, Total; 370926-JDE-I (Total);116570-Kkpxx LDL-P; 046330-HNE Size; 182124-BA-ID Scorewas developed and its performance characteristics determinedby Piper. It has not been cleared or approved by the Foodand Drug Administration.PATIENT WAS FASTINGPERFORMED BY: Cover Lockscreen[address] [id number] BY: [facility]70 [employer] CompanyCritical access hospital [id number] Albumin/Creatinine (U) [Mass ratio] 3.5 {mg/g_creat} Normal 0.0-30.0 [facility] Work Phone: Comment on above: Normal: 0.0 - 30.0 A lbuminuria: 31.0 - 300.0 Clinical albuminuria: >300.0 Test(s) 845274-ZBH-I ; 367529-TIS-K; 002554-TNU-X; 694923-Gfxdhwlpdraoa; 921778-Fbpzqdxwclh, Total; 487259-EPL-O (Total);260467-Xsulg LDL-P; 537775-AVT Size; 421621-MV-ED Scorewas developed and its performance characteristics determinedby Piper. It has not been cleared or approved by the FoodArmetheon Drug Administration.PATIENT WAS FASTINGPERFORMED BY: AdNear [address] [id number] BY: Solicore6370 [address] [facility] Access SoftwareWashington Regional Medical Center [id number] Creatinine (U) [Mass/Vol] 108.8 mg/dL Normal [facility] Work Phone: Comment on above: Test(s) 163525-INC-X ; 420680-INR-X; 832760-WSR-R; 392903-Czesihqzpuler; 442253-Qsxqpxwxbac, Total; 065983-BLC-U (Total);074763-Gxtex LDL-P; 514058-CPV Size; 014678-QS-FP Scorewas developed and its performance characteristics determinedby Piper. It has not been cleared or approved by the Foodand Drug Administration.PATIENT WAS FASTINGPERFORMED BY: AdNear [address] [id number] BY: Membersuite Tjkrjx9604 [address] [facility] Alto NetworksCritical access hospital [id number] NMR Profile (63369)Ordered B y: Machine Operator on 04-13-2019 Cholesterol [Mass/Vol] 162 mg/dL Normal 100-199 [facility] Internal Medicine Work Phone: Comment on above: Test(s) 808051-PEF-C ; 313936-CPL-B; 771110-RUZ-S; 757245-Mdsobrdgqrbxc; 077871-Zzgzoswknwu, Total; 428711-MJO-A (Total);451521-Womuf LDL-P; 015479-WFW Size; 525624-IZ-QZ Scorewas developed and its performance characteristics determinedby Piper. It has not been cleared or approved by the Foodand Drug Administration.PATIENT WAS FASTINGPERFORMED BY: AdNear [address] [id number] BY: [facility]70 [address] [facility] NetworksCritical access hospital [id number] Lipoprotein.alpha [Moles/Vol] 35.8 umol/L Normal [facility] Internal Medicine Work Phone: Comment on above: Test(s) 553356-DFN-U ; 823199-SQF-D; 317148-FZF-I; 855036-Uwacuctwbxvpa; 860842-Jcagtpxdyyq, Total; 750665-ELI-K (Total);978761-Lndld LDL-P; 391300-NMS Size; 079815-LR-TW Scorewas developed and its performance characteristics determinedby Piper. It has not been cleared or approved by the Foodand Drug Administration.PATIENT WAS FASTINGPERFORMED BY: AdNear [address] [id number] BY: [facility] [facility] [id number] Lipoprotein.beta.subpar ticle [Entitic length] 20.4 nm Abnormal [facility] Internal Medicine Work Phone: Comment [...] not afterLDL-P is taken into account. Test(s) 376228-YBU-T ; 187137-GDP-Q; 783592-EXR-W; 557879-Gigxoevqlfyfp; 916399-Eiqgsjniewp, Total; 206808-JKG-I (Total);732898-Rrfjn LDL-P; 613853-MSK Size; 977762-KP-UR Scorewas developed and its performance characteristics determinedby Piper. It has not been cleared or approved by the Foodand Drug Administration.PATIENT WAS FASTINGPERFORMED BY: LabPerMicro[address] [id number] BY: LabPerMicroJersey Shore University Medical CenterEuliho55[address] [facility] [id number] Lipoprotein.beta.subpar ticle [Moles/Vol] 823 nmol/L Normal [facility] Internal Medicine Work Phone: Comment on above: Low < 1000 Moderate 1000 - 1299 Borderline-High 1300 - 1599 High 1600 - 2000 Very High > 2000 Test(s) 947893-NAW-N ; 644459-GGR-X; 420077-YOD-P; 268230-Ytpssazknwmgh; 766607-Wvenmqqypix, Total; 274811-FCM-X (Total);247221-Hitka LDL-P; 835133-WNG Size; 604763-UL-EU Scorewas developed and its performance characteristics determinedby Piper. It has not been cleared or approved by the Foodand Drug Administration.PATIENT WAS FASTINGPERFORMED BY: Cover Lockscreen[address] [id number] BY: TauliaWashington Regional Medical Center [id number] Lipoprotein.beta.subpar ticle.small [Moles/Vol] 560 nmol/L Abnormal Comprehe nsive Internal Medicine Work Phone: Comment on above: Test(s) 912987-UNC-N ; 424713-ZWL-N; 054319-AYT-W; 634398-Ykctqgxjbbryv; 006388-Pcyubjmtcmy, Total; 321369-YOH-Q (Total);724830-Gxirc LDL-P; 737084-CVG Size; 347746-QB-PU Scorewas developed and its performance characteristics determinedby Piper. It has not been cleared or approved by the Foodand Drug Administration.PATIENT WAS FASTINGPERFORMED BY: AdNear [address] [id number] BY: Solicore[address] [facility] [id number] Triglyceride [Mass/Vol] 226 mg/dL Abnormal 0-149 C omprehensive Internal Medicine Work Phone: Comment on above: Test(s) 872676-DDF-U ; 222054-CSQ-U; 069788-PFA-Z; 407008-Nvlunjjwbhahy; 965894-Yzoaqckrhfs, Total; 843100-LMK-E (Total);536013-Jboan LDL-P; 215588-JVC Size; 891460-MY-KH Scorewas developed and its performance characteristics determinedby Piper. It has not been cleared or approved by the Foodand Drug Administration.PATIENT WAS FASTINGPERFORMED BY: Engiver[address] [id number] BY: Celaton Rvnhnt9[address] [facility] [id number] NMR Profile (73842) 64 mg/dL Normal 0-99 [facility] Internal Medicine Work Phone: Comment on above: . Optimal < 100 Abov e optimal 100 - 129 Borderline 130 - 159 High 160 - 189 Very high > 189 .LDL-C is inaccurate if patient is non-fasting. Test(s) 707888-VAG-C ; 839718-RFR-O; 522918-JXD-G; 663239-Wecnuuprtbxfr; 319937-Sttapbhqxyd, Total; 014898-EII-C (Total);328629-Hnmfa LDL-P; 531276-VXT Size; 368389-FO-FX Scorewas developed and its performance characteristics determinedby Piper. It has not been cleared or approved by the FoodArmetheon Drug Administration.PATIENT WAS FASTINGPERFORMED BY: AdNear [address] [id number] BY: [facility] [facility] [id number] NMR Profile (69758) 53 mg/dL Normal [facility] Internal [facility] Work Phone: Comment on above: Test(s) 943545-ICQ-W ; 317023-XNE-O; 503963-QUO-I; 279632-Yigmaiyxhcraq; 458298-Hdyexpfrwee, Total; 262690-BBR-S (Total);830612-Ysans LDL-P; 999893-OMI Size; 611567-QM-AS Scorewas developed and its performance characteristics determinedby Piper. It has not been cleared or approved by the Foodand Drug Administration.PATIENT WAS FASTINGPERFORMED BY: AdNear [address] [id number] BY: IKOTECH Mceact69[address] [facility] [id number] NMR Profile (86318) 226 mg/dL Abnormal 0-149 [facility]; [facility] Work Phone: NMR Profile (09395) 162 mg/dL Normal 100-199 [facility] Internal Medicine; [facility] Work Phone: PSA (PROSTATE SPECIFIC ANTIG EN) (V76.44)Ordered By: Machine Operator on 04-13-2019 Prostate specific Ag [Mass/Vol] 0.3 ng/mL Normal 0.0-4.0 [facility] Internal Medicine Work Phone: Comment on above: Deanna ECLIA methodol ogy. .According to the [place] [employer], Serum PSA shoulddecrease and remain at undetectable levels after radicalprostatectomy. The AUA defines biochemical recurrence as an initialPSA value 0.2 ng/mL or greater followed by a subsequent confirmatoryPSA value 0.2 ng/mL or greater.Values obtained with different assay methods or kits cannot be usedinterchangeably. Results cannot be interpreted as absolute evidenceof the presence or absence of malignant disease. Test(s) 467508-SBT-F ; 886991-ICN-X; 597457-BQZ-O; 191186-Cezzbscuzgkxs; 550250-Mnjmeaummdc, Total; 920977-VJN-D (Total);979837-Vkaee LDL-P; 566652-TEM Size; 770732-LW-DD Scorewas developed and its performance characteristics determinedby Piper. It has not been cleared or approved by the Foodand Drug Administration.PATIENT WAS FASTINGPERFORMED BY: [facility] Clmwgsiwcn8056 [facility] [id number] BY: LabPerMicroJersey Shore University Medical CenterRvgxiq4352 [facility] [id number] URINALYSIS, W/ MICRO (51240) Ordered By: Machine Operator on 04-13-2019 Appearance (U) Clear Normal Comprehens arianna Internal Medicine Work Phone: Comment on above: Test(s) 511572-OBH-X ; 827349-NIT-A; 332273-FWX-Q; 695809-Qecvqrhaldhpm; 241287-Sltmcnrbegi, Total; 002499-ZUB-F (Total);010178-Kyiwk LDL-P; 248644-IGW Size; 095457-LC-UE Scorewas developed and its performance characteristics determinedby Piper. It has not been cleared or approved by the Foodand Drug Administration.PATIENT WAS FASTINGPERFORMED BY: Engiver[address] [id number] BY: [facility]70 [address] [facility] Alto NetworksCritical access hospital [id number] Bilirubin Ql (U) Negative Normal Comprehe nsive Internal Medicine Work Phone: Comment on above: Test(s) 678484-AQV-G ; 540006-QWT-R; 782696-TBG-T; 553328-Qqtdhthwjbdpa; 676327-Mxxsuikzuxu, Total; 803080-UCP-B (Total);440244-Jfwya LDL-P; 933400-RFK Size; 192707-UM-BR Scorewas developed and its performance characteristics determinedby Piper. It has not been cleared or approved by the Foodand Drug Administration.PATIENT WAS FASTINGPERFORMED BY: AdNear [address] [id number] BY: [facility]70 CENXWashington Regional Medical Center [id number] Bilirubin Ql (U) Negative Normal Comprehe nsive Internal Medicine; [facility] Work Phone: Comment on above: Test(s) 095626-HNY-U ; 850901-LIF-D; 784534-FUJ-P; 726464-Wmxbrsoqcgymr; 931780-Bxskkqiyytq, Total; 505937-AOA-H (Total);652631-Swsew LDL-P; 008445-MIU Size; 918543-WX-QL Scorewas developed and its performance characteristics determinedby Piper. It has not been cleared or approved by the Foodand Drug Administration.PATIENT WAS FASTINGPERFORMED BY: [facility]Near [address] [id number] BY: [facility]70 [employer] Holding CompanyCritical access hospital [id number] Color (U) Yellow Normal [facility] Work Phone: Comment on above: Test(s) 960182-GIB-O ; 771376-KIQ-E; 645492-IUE-B; 456709-Jragolzzjpoiz; 612437-Hcaxqderidc, Total; 738910-TSB-G (Total);839588-Xshms LDL-P; 737491-FGZ Size; 616111-OG-LI Scorewas developed and its performance characteristics determinedby [employer]. It has not been cleared or approved by the Foodand Drug Administration.PATIENT WAS FASTINGPERFORMED BY: [facility]Near [address] [id number] BY: CelatonJer[facility] Shore University Medical CenterFoyuzq[address] [place] [address] [id number] Glucose Ql (U) Negative Normal Comprehens [facility] Internal Medicine Work Phone: Comment on above: Test(s) 300458-PQD-T ; 816828-JVL-D; 288169-FJN-R; 923430-Sjaezecyetrar; 120723-Llwjjglfavv, Total; 374543-IFW-T (Total);104548-Sgbge LDL-P; 793289-QNT Size; 344405-EC-UU Scorewas developed and its performance characteristics determinedby [employer]. It has not been cleared or approved by the Foodand Drug Administration.PATIENT WAS FASTINGPERFORMED BY: [facility]Near [address] [id number] BY: CelatonJer[facility] University Medical CenterTsvjlh4174 [facility] [id number] Glucose Ql (U) Negative Normal Comprehens [facility] Internal Medicine; [facility] Work Phone: Comment on above: Test(s) 743758-JRA-N ; 107222-NZL-Q; 846323-XIA-Z; 561829-Grytklwexggsh; 380271-Vxfhqhmwjbi, Total; 196863-WZQ-Q (Total);080401-Ovadx LDL-P; 173204-NIO Size; 175699-FQ-RY Scorewas developed and its performance characteristics determinedby [employer]. It has not been cleared or approved by the Foodand Drug Administration.PATIENT WAS FASTINGPERFORMED BY: BN [facility] Xhrhdruggy3434 [facility] [id number] BY: CelatonJer[facility] University Medical CenterXdnmxu0092 [facility] [id number] Hemoglobin Ql (U) Negative Normal Compreh ensive Internal Medicine Work Phone: Comment on above: Test(s) 692499-DGN-N ; 132522-WLA-X; 246633-UPD-N; 764884-Hrhtlfdcwoeqd; 720839-Fsyqcrisfln, Total; 408402-DVJ-V (Total);360411-Skpgx LDL-P; 887950-CEE Size; 236325-YO-SS Scorewas developed and its performance characteristics determinedby [employer]. It has not been cleared or approved by the Foodand Drug Administration.PATIENT WAS FASTINGPERFORMED BY: [facility]Near [address] [id number] BY: IKOTECH Oblkqv7084 [facility] [id number] Hemoglobin Ql (U) Negative Normal Compreh ensive Internal Medicine; [facility] Work Phone: Comment on above: Test(s) 360553-ERQ-X ; 990596-EBY-S; 573638-OZE-B; 554302-Xycfrtghxoczk; 645186-Loucyozspam, Total; 289696-CGN-H (Total);831910-Atnbl LDL-P; 912941-SWC Size; 863353-TJ-LA Scorewas developed and its performance characteristics determinedby [employer]. It has not been cleared or approved by the Foodand Drug Administration.PATIENT WAS FASTINGPERFORMED BY: [facility] [address] [id number] BY: [facility]atonJer[facility] Medical CenterBuroxv1328 [facility] [id number] Ketones Ql (U) Negative Normal Comprehens [facility]anna Internal Medicine Work Phone: Comment on above: Test(s) 648251-AIT-S ; 265663-QFR-I; 339123-ZYZ-H; 370183-Eaxdygpefmwhb; 396360-Yzcjbitwzjs, Total; 490383-QFD-S (Total);833786-Lfykl LDL-P; 972768-YAV Size; 169609-TB-UW Scorewas developed and its performance characteristics determinedby [employer]. It has not been cleared or approved by the Foodand Drug Administration.PATIENT WAS FASTINGPERFORMED BY: Engiver[address] [id number] BY: Membersuite Ppfgmq9703 [employer] Holding CompanyCritical access hospital [id number] Ketones Ql (U) Negative Normal Comprehens [facility] Internal Medicine; [facility] Work Phone: Comment on above: Test(s) 364844-WVL-E ; 932362-FXZ-W; 922454-EFF-D; 920449-Bdtguakelnadl; 210291-Fzairvooubt, Total; 356523-POB-M (Total);167514-Torcs LDL-P; 132838-FUX Size; 998625-VY-KD Scorewas developed and its performance characteristics determinedby [employer]. It has not been cleared or approved by the Foodand Drug Administration.PATIENT WAS FASTINGPERFORMED BY: [facility]Near [address] [id number] BY: [facility]70 [facility] [id number] Leukocyte esterase Test strip Ql (U) Negative Normal [facility] Work Phone: Comment on above: Test(s) 778416-KNF-W ; 642322-UJV-N; 592078-LBT-L; 318596-Mkafwqnjoteqc; 092113-Hkyrulbjohw, Total; 837843-VTP-X (Total);273598-Ammxb LDL-P; 240683-ECG Size; 086652-CU-OT Scorewas developed and its performance characteristics determinedby [employer]. It has not been cleared or approved by the Foodand Drug Administration.PATIENT WAS FASTINGPERFORMED BY: [facility]Near [address] [id number] BY: Solicore6370 [facility] [id number] Leukocyte esterase Test strip Ql (U) Negative Normal [facility]; [facility] Work Phone: Comment on above: Test(s) 852401-FUJ-J ; 234584-QCN-M; 157685-FHT-L; 441036-Zacsutumqcpdh; 445289-Iiatvldcjtu, Total; 560010-USB-P (Total);415007-Ldsxq LDL-P; 936676-WEX Size; 231022-PT-WW Scorewas developed and its performance characteristics determinedby [employer]. It has not been cleared or approved by the Foodand Drug Administration.PATIENT WAS FASTINGPERFORMED BY: [facility] [address] [id number] BY: ehealthtracker [facility] [id number] Microscopic observation LM Nom (Urine sed) See below: Normal [facility] Work Phone: Comment on above: Microscopic was lynnette cated and was performed. Test(s) 514327-JJE-X ; 321852-TRJ-H; 001086-ILU-R; 562910-Yniidyihxkvyz; 956810-Cmlzinwmkrv, Total; 961935-AEL-H (Total);986593-Rcijg LDL-P; 760340-CGA Size; 794072-LT-AG Scorewas developed and its performance characteristics determinedby [employer]. It has not been cleared or approved by the Foodand Drug Administration.PATIENT WAS FASTINGPERFORMED BY: [facility] [address] [id number] BY: Solicore6[address] [facility] [id number] Microscopic observation LM Nom (Urine sed) MICRON Normal [facility] Work Phone: Comment on above: Microscopic follows if indicated. Test(s) 377400-JZG-B ; 601045-YMF-K; 796673-DNP-H; 550679-Iqulzhmmvffik; 688284-Duksithnqyc, Total; 643449-YQN-K (Total);700723-Jugbk LDL-P; 323783-UQU Size; 806516-FW-SL Scorewas developed and its performance characteristics determinedby [employer]. It has not been cleared or approved by the Foodand Drug Administration.PATIENT WAS FASTINGPERFORMED BY: [facility] [address] [id number] BY: Membersuite Jpusfp68[address] [facility] [id number] Nitrite Ql (U) Negative Normal Comprehens [facility] Internal Medicine Work Phone: Comment on above: Test(s) 712172-VPR-O ; 735061-VTR-D; 793537-BDB-A; 214758-Qcqswlrqsuzae; 841750-Emuhoxkogxk, Total; 764079-LHV-W (Total);066991-Ooiqv LDL-P; 178350-JKZ Size; 135477-SL-GU Scorewas developed and its performance characteristics determinedby [employer]. It has not been cleared or approved by the Foodand Drug Administration.PATIENT WAS FASTINGPERFORMED BY: [facility] [address] [id number] BY: Kaazinglin6[address] [facility] [id number] Nitrite Ql (U) Negative Normal Comprehens [facility] Internal [facility]; [facility] Work Phone: Comment on above: Test(s) 686230-EDN-A ; 454321-NGA-R; 853257-PHN-Q; 774529-Bfcnwrkjsujlc; 960703-Pmbcybrmkku, Total; 783395-XMQ-G (Total);931050-Phwws LDL-P; 126150-VJV Size; 347786-PY-AJ Scorewas developed and its performance characteristics determinedby [employer]. It has not been cleared or approved by the Foodand Drug Administration.PATIENT WAS FASTINGPERFORMED BY: [facility] [address] [id number] BY: Kaazinglin6[address] [facility] [id number] pH (U) 7.0 [pH] Normal 5.0-7.5 [facility] Work Phone: Comment on above: Test(s) 715334-MDM-Z ; 193174-WQG-V; 588908-MHK-G; 281970-Sewtevmsbefej; 744346-Ldoommskevy, Total; 597868-FAA-U (Total);549801-Ucwae LDL-P; 827824-KBF Size; 114975-PV-YK Scorewas developed and its performance characteristics determinedby [employer]. It has not been cleared or approved by the Foodand Drug Administration.PATIENT WAS FASTINGPERFORMED BY: [facility] [address] [id number] BY: PublicBeta[address] [facility] [id number] Protein Ql (U) Negative Normal Comprehens [facility] Internal Medicine Work Phone: Comment on above: Test(s) 868083-BCW-Z ; 313201-ARI-L; 338790-BQN-C; 723920-Ftzieekbvvmwh; 574557-Sxuzsofyejr, Total; 484809-IAI-H (Total);919213-Hqogr LDL-P; 322369-YVL Size; 885694-VD-BG Scorewas developed and its performance characteristics determinedby [employer]. It has not been cleared or approved by the Foodand Drug Administration.PATIENT WAS FASTINGPERFORMED BY: Cover Lockscreen[address] [id number] BY: [facility] [facility] [id number] Protein Ql (U) Negative Normal Comprehens [facility] Internal [facility]; [facility] Work Phone: Comment on above: Test(s) 589704-IHX-Z ; 886014-HVS-J; 660041-BJH-H; 140232-Rqoflofeercyj; 606723-Xjnstaqheya, Total; 331777-HAP-W (Total);955408-Zjrgi LDL-P; 414783-WDT Size; 651191-XX-MP Scorewas developed and its performance characteristics determinedby [employer]. It has not been cleared or approved by the Foodand Drug Administration.PATIENT WAS FASTINGPERFORMED BY: [facility] [address] [id number] BY: Solicore6370 PaymentWorksSaint Elizabeth Edgewood [id number] Specific gravity (U) [Rel density] 1.018 1 Normal 1.005-1.03 0 [facility] Work Phone: Comment on above: Test(s) 964286-XZX-T ; 206591-EHI-M; 129589-BAG-F; 258180-Mtikhuuovdklr; 468556-Emfgcfkrebj, Total; 622020-YCY-Z (Total);567066-Srmeo LDL-P; 472683-XKG Size; 838687-XS-SB Scorewas developed and its performance characteristics determinedby [employer]. It has not been cleared or approved by the Foodand Drug Administration.PATIENT WAS FASTINGPERFORMED BY: Cover Lockscreen[address] [id number] BY: [facility]70 [facility] [id number] Urobilinogen (U) [Mass/Vol] 0.2 mg/dL Normal 0.2-1.0 [facility]; [facility] Work Phone: Comment on above: Test(s) 118026-LED-G ; 416208-KKQ-Q; 590162-VEB-S; 578737-Pfimyplpxrnvp; 724517-Tswtyklpmtc, Total; 940686-SGJ-L (Total);729774-Iscam LDL-P; 384756-IFA Size; 726037-BG-YK Scorewas developed and its performance characteristics determinedby [employer]. It has not been cleared or approved by the Foodand Drug Administration.PATIENT WAS FASTINGPERFORMED BY: [facility]Near [address] [id number] BY: Solicore6370 [employer]oc[employer] Holding CompanyCritical access hospital [id number] Urobilinogen Test strip (U) [Mass/Vol] 0.2 mg/dL Normal 0.2-1.0 [facility] Work Phone: Comment on above: Test(s) 049524-UBV-P ; 861941-IBQ-X; 528049-YCC-V; 220042-Ellocrwczstpy; 719034-Dmtgazxsrgb, Total; 380050-SBS-F (Total);336878-Uwlxe LDL-P; 600983-VGE Size; 919841-XE-BW Scorewas developed and its performance characteristics determinedby [facility]. It has not been cleared or approved by the Foodand Drug Administration.PATIENT WAS FASTINGPERFORMED BY: [facility]1447 [facility] [id number] BY: [place] 0866370 [facility] [id number] Sputum Culture (75044)Ordere d By: Machine Operator on 10-28-2018 Epithelial cells.squamous LM Ql (Sput) None seen Normal [facility] Work Phone: Comment on above: PATIENT NOT FASTINGP ERFORMED BY: [facility] [facility] [id number] Information: SRC:SP Microscopic observation Gram stain Nom (Sput) GSACC Normal Comprehens [facility]anna Internal Medicine Work Phone: Comment on above: This specimen is of good quality and is acceptable for routinebacterial culture. PATIENT NOT FASTINGP ERFORMED BY: [facility] [facility] [id number] Information: SRC:SP Microscopic observation Gram stain Nom (Sput) PCF Normal Comprehens [facility] Internal Medicine Work Phone: Comment on above: Few gram positive co cciFew gram variable coccobacilli PATIENT NOT FASTINGP ERFORMED BY: [facility] [facility] [id number] Information: SRC:SP WBC LM Ql (Sput) None seen Normal Comprehe nsive Internal Medicine Work Phone: Comment on above: PATIENT NOT FASTINGP ERFORMED BY: [facility] [facility] [id number] Information: SRC:SP Basic Metabolic Profile (BMP )on 10-13-2018 Basic metabolic 2000 panel 8.8 mg/dL Normal 8.5-10.1 [facility] Work Phone: Comment on above: [facility] [address] [place], [place], [address] Basic metabolic 2000 panel 17.8 {RATIO} Normal 10-20 [facility] Work Phone: Comment on above: [facility] [address] [place], [address] Basic metabolic 2000 panel 120 mL/min Normal [facility] Work Phone: Comment on above: GFR Calc [facility] [address] [place], [address] Basic metabolic 2000 panel 99 mL/min Normal [facility] Work Phone: Comment on above: Non- GFR Calc [facility] [address] [place], [place], [address] Basic metabolic 2000 panel 0.84 mg/dL Normal 0.70-1.30 [facility] Work Phone: Comment on above: The validity of the calculated GFR AND GFRAA in patients over70 years has not been determined. Clinical correlation isessential. [facility] [address] [place], [place], [address] Basic metabolic 2000 panel 15 mg/dL Normal 7-18 [facility] Work Phone: Comment on above: [facility] [address] [place], [address] Basic metabolic 2000 panel 97 mg/dL Normal 74-106 [facility] Work Phone: Comment on above: Please note revised GLUCOSE reference range qygwsgewg66/02/2018. [facility] [address] [place], [place], [address] Basic metabolic 2000 panel 25.0 mmol/L Normal 21.0-32.0 [facility] Work Phone: Comment on above: [facility] [address] [place], [place], [address] Basic metabolic 2000 panel 108 mmol/L Abnormal 98-107 [facility] Work Phone: Comment on above: [facility] [address] [place], [place], [address] Basic metabolic 2000 panel 4 1 Abnormal 5-15 [facility] Work Phone: Comment on above: [facility] [address] [place], [place], [address] Basic metabolic 2000 panel 4.2 mmol/L Normal 3.5-5.1 [facility] Work Phone: Comment on above: [facility] [address] [place], [place], [address] Basic metabolic 2000 panel 137 mmol/L Normal 136-145 [facility] Work Phone: Comment on above: [facility] [address] [place], [place], [address] CBC-Complete Blood Cnt No Di ffon 10-13-2018 Erythrocyte distribution width (RBC) [Ratio] 14.1 % Normal 11.6-14.6 [facility] Work Phone: Comment on above: [facility] [address] [place], [place], [address] Hematocrit (Bld) [Volume fraction] 41.5 % Normal 40-54 [facility] Work Phone: Comment on above: [facility] [address] [place], [place], [address] Hemoglobin (Bld) [Mass/Vol] 13.6 g/dL Normal 13.0-16.5 [facility] Work Phone: Comment on above: [facility] [address] [place], [place], [address] MCH (RBC) [Entitic mass] 26.8 pg Abnormal 27.0-32.0 [facility] Work Phone: Comment on above: [facility] [address] [place], [address] MCHC (RBC) [Mass/Vol] 32.8 {g/gl} Normal 32-36 Co [facility] Internal Medicine Work Phone: Comment on above: [facility] [address] [place], [address] MCV (RBC) [Entitic vol] 81.7 fL Normal 80-94 C [facility] centerensive Internal Medicine Work Phone: Comment on above: [facility] [address] [place], [address](392) Platelet mean volume (Bld) [Entitic vol] 10.1 fL Normal 6.2-12.0 Comprehensiv Internal Medicine Work Phone: Comment on above: [facility] [address] [place], [address] Platelets (Bld) [#/Vol] 314 10*3/uL Normal 150-450 [facility] Work Phone: Comment on above: [facility] [address] [place], [address] RBC (Bld) [#/Vol] 5.08 {M/mm3} Normal 4.6-6.2 [facility] Internal Medicine Work Phone: Comment on above: [facility] [address] [place], [address] WBC (Bld) [#/Vol] 6.4 10*3/uL Normal 4.4-11.0 [facility] Internal Medicine Work Phone: Comment on above: [facility] [address] [place], [address] CBC-Complete Blood Cnt No Diff 41.7 fL Normal 35.1-43.9 [facility] Work Phone: Comment on above: [facility] [address] [place], [place], [address] IMMUNOHISTOCHEMISTRYon 09-30 IMMUNOHISTOCHEMISTRY See Note Normal Comp rehensive Internal Medicine Work Phone: Comment on above: Patient: MELIZA OVALLES : 1960 (58/M) Acct Num: [id number] Phys: Jay HICKS,Wolfgang Unit Num: [id number] Loc: EN Specimen: [id number] Received: 09/30/18 - 1224 Spec Type: IMMUNO TISSUES 1 TISSUES: A. Stomach, NOS SPECIMEN INFORMATION: Tissue Source: A - Antrum biopsy Clinical Info: Hiatal hernia Specimen Number: [id number] CPT code: 11908 METHODOLOGY: Deparaffinized sections of prefer/formalin-fixed tissue or [...] developed and their performance characteristics determined by [facility]. They may not have been cleared or approved by the U.S. Food and Drug Administration. The FDA has determined that such clearance or approval is not necessary. INTERPRETATION: A. Antrum, biopsy: Negative for Helicobacter pylori organisms. SJ:lisandra 10/01/18 PHYSICIAN AND INSTITUTION [place] [id number] Signed Ryan Tinoco MD 10/02/18 [facility] [address] [place], [place], [address] CALCIFIDIOL (56718) VIT D 25 on 08-26-2018 25-Hydroxyvitamin D2+25-Hydroxyvitamin D3 mass conc 32.1 ng/mL Normal 30.0-100.0 [facility] Work Phone: Comment on above: Vitamin D deficiency has been defined by the [place] ofMedicine and an Endocrine Society practice guideline as alevel of serum 25-OH vitamin D less than 20 ng/mL (1,2).The Endocrine Society went on to further define vitamin Dinsufficiency as a level between 21 and 29 ng/mL (2).1. IOM ([place] of Medicine). 2010. Dietary reference intakes for calcium and D. [place]: The National Academies Press.2. Rayne MF, Luan ST, Brittany ERVIN, et al. Evaluation, treatment, and prevention of vitamin D deficiency: an Endocrine Society clinical practice guideline. JCEM. 2010; 96(7):1911-30. PATIENT NOT FASTINGP ERFORMED BY: [employer] Emleqllcfe5586 [facility] [id number] BY: CB [facility] Nsadvi7552 [address] RoadDublin [place] [id number] CBC (AUTO) (62824)on 019 Erythrocyte distribution width Ratio (RBC) 14.7 % Normal 12.3-15.4 [facility] Work Phone: Comment on above: PATIENT NOT FASTINGP ERFORMED BY: BN [facility] Unqcqcitel[address] [id number] BY: C[employer]mos [facility] Zrbphl6137 [address] RoadDublin [place] [id number] Hematocrit Volume Fraction (Bld) 42.7 % Normal 37.5-51.0 [facility] Work Phone: Comment on above: PATIENT NOT FASTINGP ERFORMED BY: BN [facility] L[address]du[address]brzr[address] [id number] BY: CB [facility] Rnsetr8960 [address]aney RoadDublin [place] [id number] Hemoglobin mass conc (Bld) 14.1 g/dL Normal 13.0-17.7 [facility] Work Phone: Comment on above: PATIENT NOT FASTINGP ERFORMED BY: BN [facility] Hxfuwh[address]scz[address] [id number] BY: CB [facility] Qajjlh9499 [address]aney RoadDublin [place] [id number] MCH Entitic mass (RBC) 26.8 pg Normal 26.6-33.0 Co mprehensive Internal Medicine Work Phone: Comment on above: PATIENT NOT FASTINGP ERFORMED BY: [facility] [address] [id number] BY: [facility] Lqfpxz95[address] [facility] [id number] MCHC mass conc (RBC) 33.0 g/dL Normal 31.5-35.[address] [facility] Internal [facility] Work Phone: Comment on above: PATIENT NOT FASTINGP ERFORMED BY: [facility] [address] [id number] BY: CB [facility] Jygnva97[address] [facility] [id number] MCV Entitic volume (RBC) 81 fL Normal 79-97 [facility] Work Phone: Comment on above: PATIENT NOT FASTINGP ERFORMED BY: LabCo[address] [id number] BY: [facility] Kprqyu6[address] [facility] [id number] Platelets #/vol (Bld) 309 {x10E3/uL} Normal 150-379 [facility] Internal Medicine Work Phone: Comment on above: PATIENT NOT FASTINGP ERFORMED BY: [facility] [address] [id number] BY: [facility] Epkyud8[address] [facility] [id number] RBC #/vol (Bld) 5.27 {x10E6/uL} Normal 4.14-5.[address] [facility]ensive Internal [facility] Work Phone: Comment on above: PATIENT NOT FASTINGP ERFORMED BY: [facility] [address] [id number] BY: LabCoJersey Shore University Medical CenterFtsamb22[address] [facility] [id number] WBC #/vol (Bld) 6.8 {x10E3/uL} Normal 3.4-10.8 [facility] Internal Medicine Work Phone: Comment on above: PATIENT NOT FASTINGP ERFORMED BY: BN [facility] Upuvgcveum9480 [facility] [id number] BY: TONYA [facility] Ktdzcg0041 [address] RoadDublin [place] [id number] CBC (AUTO) (85289)Ordered By : Machine Operator on 08-26-2018 Platelets (Bld) [#/Vol] 309 10*3/uL Normal 150-379 [facility]; [facility] Work Phone: Comment on above: PATIENT NOT FASTINGP ERFORMED BY: BN [facility] [address]rsngw[address] [id number] BY: TONYA [facility] Djtjdo7011 [address] RoadDublin [place] [id number] RBC (Bld) [#/Vol] 5.27 10*6/uL Normal 4.14-5.80 [facility] ehensive Internal Medicine; [facility] Work Phone: Comment on above: PATIENT NOT FASTINGP ERFORMED BY: BN [facility] [address] [id number] BY: TONYA [facility] Iwiokc9820 [address] RoadDublin [place] [id number] WBC (Bld) [#/Vol] 6.8 10*3/uL Normal 3.4-10.8 [facility] Internal [facility]; [facility] Work Phone: Comment on above: PATIENT NOT FASTINGP ERFORMED BY: BN [facility] [address] [id number] BY: TONYA [facility] Ktuxdg0800 [address] RoadDublin [place] [id number] LIPOPROTEIN, BLD, BY NMR (40 934)on 08-26-2018 Cholesterol mass conc 138 mg/dL Normal 100-199 [facility] prehensive Internal Medicine Work Phone: Comment on above: PATIENT NOT FASTINGP ERFORMED BY: BN [facility] Lntzjzdmqu[address] [id number] BY: CB [facility] Fsvsrr0362 Haney RoadDublin [place] [id number] Lipoprotein.alpha molar conc 33.2 umol/L Normal [facility] Work Phone: Comment on above: PATIENT NOT FASTINGP ERFORMED BY: Cover Lockscreen[address] [id number] BY: PublicBeta[address] [facility] [id number] Lipoprotein.beta.subpar ticle Entitic length 19.7 nm Abnormal [...] were developed and their performance characteristicsdetermined by [employer]. These assays have not been cleared by [place] Food and Drug Administration. The clinical utility of theselaboratory values have not been fully established. PATIENT NOT FASTINGP ERFORMED BY: Engiver[address] [id number] BY: Solicore[address] [facility] [id number] Lipoprotein.beta.subpar ticle molar conc 789 nmol/L Normal [facility] Work Phone: Comment on above: Low < 1000 Moderate 1000 - 1299 Borderline-High 1300 - 1599 High 1600 - 2000 Very High > 2000 PATIENT NOT FASTINGP ERFORMED BY: BN [facility] Qlquydeubm[address] [id number] BY: CB [facility] Emxorq[address] [facility]Critical [facility] [id number] Lipoprotein.beta.subpar ticle.small molar conc 622 nmol/L Abnormal Comprehen [facility] Work Phone: Comment on above: PATIENT NOT FASTINGP ERFORMED BY: BN LabPerMicrorp Whcoqsbegd8[address] [id number] BY: CB [facility] Wjiolr[address] [facility] [facility] NetworksCritical access hospital [id number] Triglyceride mass conc 170 mg/dL Abnormal 0-149 Co m[facility] Work Phone: Comment on above: PATIENT NOT FASTINGP ERFORMED BY: [employer] LabPerMicrorp Kwttdectjh[address] [id number] BY: CB [facility] Ufrwrg[address] [facility] [id number] LIPOPROTEIN, BLD, BY NMR ([id number]) 55 mg/dL Normal 0-99 [facility] Work Phone: Comment on above: . Optimal < 100 Abov e optimal 100 - 129 Borderline 130 - 159 High 160 - 189 Very high > 189 .LDL-C is inaccurate if patient is non-fasting. PATIENT NOT FASTINGP ERFORMED BY: [employer] LabPerMicrorp Ftlahzxkmc[address] [id number] BY: CB [facility] Deciok[address] [facility] [id number] LIPOPROTEIN, BLD, BY NMR (37470) 49 mg/dL Normal [facility] Work Phone: Comment on above: PATIENT NOT FASTINGP ERFORMED BY: BN LabPerMicrorp Lkqghbwuhi[address] [id number] BY: CB [facility] Ftvkxe5629 Haney RoadDublin [place] [id number] LIPOPROTEIN, BLD, BY NMR (20 743)Ordered By: Machine Operator on 08-26-2018 LIPOPROTEIN, BLD, BY NMR (86027) 170 mg/dL Abnormal 0-149 [facility]; [facility] Work Phone: LIPOPROTEIN, BLD, BY NMR (94204) 138 mg/dL Normal 100-199 [facility]; [facility] Work Phone: METABOLIC PANEL, COMPREHENSI VE (55867)on 08-26-2018 Albumin mass conc 4.5 g/dL Normal 3.5-5.5 Compreh [facility] Internal Medicine Work Phone: Comment on above: PATIENT NOT FASTINGP ERFORMED BY: [facility] [address] [id number] BY: CB [facility] Voqbns5192 [address]aney RoadDublin [place] [id number] Albumin/Globulin mass ratio 1.5 {ratio} Normal 1.2-2.2 [facility] Work Phone: Comment on above: PATIENT NOT FASTINGP ERFORMED BY: [facility] [address] [id number] BY: CB [facility] Uzghez6971 [address]aney RoadDublin [place] [id number] ALP enzyme act/vol 91 [iU]/L Normal 39-117 [facility] Work Phone: Comment on above: PATIENT NOT FASTINGP ERFORMED BY: BN [facility] [address] [id number] BY: CB [facility] Ruxmvd2665 Haney RoadDublin [place] [id number] ALT enzyme act/vol 27 [iU]/L Normal 0-44 [facility] Work Phone: Comment on above: PATIENT NOT FASTINGP ERFORMED BY: [facility] [address] [id number] BY: CB [facility] Dvxecj9898 [address]aney RoadDublin [place] [id number] AST enzyme act/vol 20 [iU]/L Normal 0-40 Compre hensive Internal Medicine Work Phone: Comment on above: PATIENT NOT FASTINGP ERFORMED BY: [facility] [address] [id number] BY: TONYA [facility] Wwlbea0057 [address]aney RoadDublin [place] [id number] Bilirubin mass conc 0.3 mg/dL Normal 0.0-1.2 Compr ehensive Internal Medicine Work Phone: Comment on above: PATIENT NOT FASTINGP ERFORMED BY: LabCo[address] [id number] BY: [facility] Niajmy0032 [address] RoadDublin [place] [id number] Calcium mass conc 9.5 mg/dL Normal 8.7-10.2 Compreh ensive Internal Medicine Work Phone: Comment on above: PATIENT NOT FASTINGP ERFORMED BY: Lab[address] [id number] BY: [facility] Wlzuke0850 [address]aney RoadDublin [place] [id number] Chloride molar conc 104 mmol/L Normal 96-106 Compr ehensive Internal Medicine Work Phone: Comment on above: PATIENT NOT FASTINGP ERFORMED BY: Lab[address] [id number] BY: [facility] Quhccw7350 [address] RoadDublin [place] [id number] CO2 molar conc 23 mmol/L Normal 20-29 Comprehens arianna Internal Medicine Work Phone: Comment on above: PATIENT NOT FASTINGP ERFORMED BY: [facility] [address] [id number] BY: CB [facility] Brmrlv3746 [address]aney RoadDublin [place] [id number] Creatinine mass conc 0.83 mg/dL Normal 0.76-1.27 Comp rehensive Internal Medicine Work Phone: Comment on above: PATIENT NOT FASTINGP ERFORMED BY: BN [facility] Pfarvkyusf3460 [facility] [id number] BY: CB [facility] Fnqmup9999 [address] RoadDublin [place] [id number] GFR/1.73 sq M predicted among blacks CKD-EPI vol rate/area (S/P/Bld) 112 mL/min/1.73 Normal Comprehe nsive Internal Medicine Work Phone: Comment on above: PATIENT NOT FASTINGP ERFORMED BY: BN [facility] [address] [id number] BY: [facility] Nllcjz1880 Haney RoadDuin [place] [id number] GFR/1.73 sq M predicted among non-blacks CKD-EPI vol rate/area (S/P/Bld) 97 mL/min/1.73 Normal [facility] Work Phone: Comment on above: PATIENT NOT FASTINGP ERFORMED BY: [facility] [address] [id number] BY: [facility] Pmszwq38[address] [facility] [place] [id number] Globulin mass conc (S) 3.1 g/dL Normal 1.5-4.5 Co mprehensive [facility] Work Phone: Comment on above: PATIENT NOT FASTINGP ERFORMED BY: [facility] [address] [id number] BY: [facility] Hnjsna[address] [facility] [place] [id number] Glucose mass conc 94 mg/dL Normal 65-99 Compreh ensive Internal Medicine Work Phone: Comment on above: PATIENT NOT FASTINGP ERFORMED BY: [facility] [address] [id number] BY: [facility] Swuaxm[address] [facility] [place] [id number] Potassium molar conc 5.0 mmol/L Normal 3.5-5.2 Comp rehensive Internal Medicine Work Phone: Comment on above: PATIENT NOT FASTINGP ERFORMED BY: BN [facility] Jvpcrrpxsc2409 [facility] [id number] BY: CB [facility] Kecnyc0890 [address] RoadDublin [place] [id number] Protein mass conc 7.6 g/dL Normal 6.0-8.5 Compreh ensive Internal Medicine Work Phone: Comment on above: PATIENT NOT FASTINGP ERFORMED BY: BN [facility] [address] [id number] BY: CB [facility] Ztedjg3196 [address] RoadDublin [place] [id number] Sodium molar conc 143 mmol/L Normal 134-144 Compreh ensive Internal Medicine Work Phone: Comment on above: PATIENT NOT FASTINGP ERFORMED BY: BN [facility] [address] [id number] BY: CB [facility] Bfdbum5614 [address] RoadDublin [place] [id number] Urea nitrogen mass conc 11 mg/dL Normal 6-24 C omprehensive Internal Medicine Work Phone: Comment on above: PATIENT NOT FASTINGP ERFORMED BY: [facility] [address] [id number] BY: [facility] Ggqpug6124 [address] RoadDublin [place] [id number] Urea nitrogen/Creatinine mass ratio 13 mg/mg Normal 9-20 [facility] Work Phone: Comment on above: PATIENT NOT FASTINGP ERFORMED BY: BN [facility] [address] [id number] BY: CB [facility] Esluqb7558 [address] RoadDublin [place] [id number] METABOLIC PANEL, COMPREHENSI VE (23072)Ordered By: Machine Operator on 08-26-2018 ALP [Catalytic activity/Vol] 91 U/L Normal 39-117 [facility]; [facility] Work Phone: Comment on above: PATIENT NOT FASTINGP ERFORMED BY: BN [facility] [address] [id number] BY: [facility] Ivuruy8998 [address] RoadDublin [place] [id number] ALT [Catalytic activity/Vol] 27 U/L Normal 0-44 [facility]; [facility] Work Phone: Comment on above: PATIENT NOT FASTINGP ERFORMED BY: [place] [address]8027 [facility] [id number] BY: [facility] Rwfldu[address] [facility]bl[facility] [place] [id number] AST [Catalytic activity/Vol] 20 U/L Normal 0-40 [facility]; [facility] Work Phone: Comment on above: PATIENT NOT FASTINGP ERFORMED BY: Lab[address] [id number] BY: [facility] Iazwgo29[address] [facility] [id number] SED RATE ERYTHROCYTE ([id number]) on 08-26-2018 ESR Velocity (Bld) 6 mm/h Normal 0-30 Compre hensive Internal Medicine Work Phone: Comment on above: PATIENT NOT FASTINGP ERFORMED BY: Lab[address] [id number] BY: [facility] Ovtdpq37[address] [facility] [id number] T3, FREE (TRIDOTHYRONINE) (8 7092)on 08-26-2018 T3 free mass conc 3.5 pg/mL Normal 2.0-4.4 Compreh ensive Internal Medicine Work Phone: Comment on above: PATIENT NOT FASTINGP ERFORMED BY: [address] [id number] BY: [facility]CoJer[facility] Medical CenterYcoiuy6467 [facility] [id number] T4, FREE (THYROXINE) (66207) on 08-26-2018 T4 free mass conc 1.32 ng/dL Normal 0.82-1.77 Compreh ensive Internal Medicine Work Phone: Comment on above: PATIENT NOT FASTINGP ERFORMED BY: [facility] Kptzeyzzsu1716 [facility] [id number] BY: [facility] Kwbdhd4946 [address] RoadDublin [place] [id number] TSH (25393)on 08-26-2018 Thyrotropin Qn 2.990 {uIU/mL} Normal 0.450-4.50 0 [facility] Work Phone: Comment on above: PATIENT NOT FASTINGP ERFORMED BY: [facility] Klavescxkr2876 [facility] [id number] BY: [facility] Tlvvsq2126 [address] RoadDublin [place] [id number] Troponin I (77071)Ordered By : Machine Operator on 08-26-2018 Troponin I.cardiac [Mass/Vol] ng/mL Normal 0.00-0.04 [facility]; [facility] Work Phone: Comment on above: PATIENT NOT FASTINGP ERFORMED BY: [facility] Qopwhghguw6733 [facility] [id number] BY: [facility] Ysemtq9627 [address] RoadDublin [place] [id number] Troponin I (92475)on 019 Troponin I.cardiac mass conc ng/mL Normal 0.00-0.04 [facility] Work Phone: Comment on above: PATIENT NOT FASTINGP ERFORMED BY: [facility] Xweygjeisa4556 [facility] [id number] BY: [facility] Jzfaxt0036 [address] RoadDublin [place] [id number] VITAMIN B-12 (CYANOCOBALAMIN ) (01574)on 08-26-2018 Cobalamin (Vitamin B12) mass conc 1397 pg/mL Abnormal 232-1245 [facility] Work Phone: Comment on above: PATIENT NOT FASTINGP ERFORMED BY: [facility] [address] [id number] BY: [facility] Jnbeei4255 [address] RoadDublin [place] [id number] Gram stain for investigation of transfusion reaction Microscopic observation Gram stain Nom (Unsp spec) [facility] Work Phone: No Panel Information SARS-CoV-2 & FLU Antigen (Rapid) [facility] Work Phone: Vital Signs Date Time Vital Sign Value Performing Clinician Facility 05-06-2025 10:59-0400 Body height 182.[address] Jocelin Saunders DO Work Phone: [facility] 05-06-2025 10:59-0400 Body mass index (BMI) [Ratio] 33.5 kg/m2 Dr. Jocelin Saunders DO Work Phone: [facility] 05-06-2025 10:59-0400 Body temperature 97.8 [degF] Dr. Jocelin Saunders DO Work Phone: [facility] 05-06-2025 10:59-0400 Body weight 112.[address] Jocelin Saunders DO Work Phone: [facility] 05-06-2025 10:59-0400 Diastolic blood pressure 71 mm[Hg] Dr. Jocelin Saunders DO Work Phone: [facility] 05-06-2025 10:59-0400 Heart rate 62 /min Dr. Jocelin Saundres DO Work Phone: [facility] 05-06-2025 10:59-0400 Respiratory rate 16 /min Dr. Jocelin Saunders DO Work Phone: [facility] 05-06-2025 10:59-0400 SaO2% (BldA) [Mass fraction] 94 % Dr. Jocelin Saunders DO Work Phone: [facility] 05-06-2025 10:59-0400 Systolic blood pressure 135 mm[Hg] Dr. Jocelin Saunders DO Work Phone: [facility] 04-16-2025 08:34-0400 Body height 182.[address] Jocelin Saunders DO Work Phone: [facility] 04-16-2025 08:34-0400 Body mass index (BMI) [Ratio] 33.2 kg/m2 Dr. Jocelin Saunders DO Work Phone: [facility] 04-16-2025 08:34-0400 Body temperature 97.6 [degF] Dr. Jocelin Saunders DO Work Phone: [facility] 04-16-2025 08:34-0400 Body weight 111.[address] Jocelin Saunders DO Work Phone: [facility] 04-16-2025 08:34-0400 Diastolic blood pressure 77 mm[Hg] Dr. Jocelin Saunders DO Work Phone: [facility] 04-16-2025 08:34-0400 Heart rate 55 /min Dr. Jocelin Saunders DO Work Phone: [facility] 04-16-2025 08:34-0400 Respiratory rate 16 /min Dr. Jocelin Saunders DO Work Phone: [facility] 04-16-2025 08:34-0400 SaO2% (BldA) [Mass fraction] 96 % Dr. Jocelin Saunders DO Work Phone: [facility] 04-16-2025 08:34-0400 Systolic blood pressure 129 mm[Hg] Dr. Jocelin Saunders DO Work Phone: [facility] 02-04-2025 11:50-0400 Body height 182.[address] Jocelin Saunders DO Work Phone: [facility] 02-04-2025 11:50-0400 Body mass index (BMI) [Ratio] 33 kg/m2 Dr. Jocelin Saunders DO Work Phone: [facility] 02-04-2025 11:50-0400 Body temperature 98.5 [degF] Dr. Jocelin Saunders DO Work Phone: [facility] 02-04-2025 11:50-0400 Body weight 110.[address] Jocelin Saunders DO Work Phone: [facility] 02-04-2025 11:50-0400 Diastolic blood pressure 75 mm[Hg] Dr. Jocelin Saunders DO Work Phone: [facility] 02-04-2025 11:50-0400 Heart rate 55 /min Dr. Jocelin Saunders DO Work Phone: [facility] 02-04-2025 11:50-0400 Respiratory rate 16 /min Dr. Jocelin Saunders DO Work Phone: [facility] 02-04-2025 11:50-0400 SaO2% (BldA) [Mass fraction] 96 % Dr. Jocelin Saunders DO Work Phone: [facility] 02-04-2025 11:50-0400 Systolic blood pressure 131 mm[Hg] Dr. Jocelin Saunders DO Work Phone: [facility] 01-05-2025 08:19-0400 Body mass index (BMI) [Ratio] 32.6 kg/m2 Dr. Jocelin Saunders DO Work Phone: [facility] 01-05-2025 08:19-0400 Body temperature 97.7 [degF] Dr. Jocelin Saunders DO Work Phone: [facility] 01-05-2025 08:19-0400 Body weight 109.[address] Jocelin Saunders DO Work Phone: [facility] 01-05-2025 08:19-0400 Diastolic blood pressure 78 mm[Hg] Dr. Jocelin Saunders DO Work Phone: [facility] 01-05-2025 08:19-0400 Heart rate 58 /min Dr. Jocelin Saunders DO Work Phone: [facility] 01-05-2025 08:19-0400 Respiratory rate 20 /min Dr. Jocelin Saunders DO Work Phone: [facility] 01-05-2025 08:19-0400 SaO2% (BldA) [Mass fraction] 96 % Dr. Jocelin Saunders DO Work Phone: [facility] 01-05-2025 08:19-0400 Systolic blood pressure 157 mm[Hg] Dr. Jocelin Saunders DO Work Phone: [facility] 11-05-2024 11:42-0400 Body height 182.[address] Jocelin Saunders DO Work Phone: [facility] 11-05-2024 11:42-0400 Body mass index (BMI) [Ratio] 32.5 kg/m2 Dr. Jocelin Saunders DO Work Phone: [facility] 11-05-2024 11:42-0400 Body temperature 97.9 [degF] Dr. Jocelin Saunders DO Work Phone: [facility] 11-05-2024 11:42-0400 Body weight 109.[address] Jocelin Saunders DO Work Phone: [facility] 11-05-2024 11:42-0400 Diastolic blood pressure 74 mm[Hg] Dr. Jocelin Saunders DO Work Phone: [facility] 11-05-2024 11:42-0400 Heart rate 56 /min Dr. Jocelin Saunders DO Work Phone: [facility] 11-05-2024 11:42-0400 Respiratory rate 16 /min Dr. Jocelin Saunders DO Work Phone: [facility] 11-05-2024 11:42-0400 SaO2% (BldA) [Mass fraction] 95 % Dr. Jocelin Saunders DO Work Phone: [facility] 11-05-2024 11:42-0400 Systolic blood pressure 122 mm[Hg] Dr. Jocelin Saunders DO Work Phone: [facility] 07-28-2024 13:58-0500 Body mass index (BMI) [Ratio] 31.9 kg/m2 Shinal Maynard TRAINING TECHNICIAN-SHEETER OPERATOR Work Phone: [facility] 07-28-2024 13:58-0500 Body temperature 98.49 [degF] Shinal Maynard TRAINING TECHNICIAN-SHEETER OPERATOR Work Phone: [facility] 07-28-2024 13:58-0500 Body weight 106.82 kg Shinal Maynard TRAINING TECHNICIAN-SHEETER OPERATOR Work Phone: [facility] 07-28-2024 13:58-0500 Diastolic blood pressure 66 mm[Hg] Shinal Maynard TRAINING TECHNICIAN-SHEETER OPERATOR Work Phone: [facility] 07-28-2024 13:58-0500 Heart rate 66 /min Shinal Maynard TRAINING TECHNICIAN-SHEETER OPERATOR Work Phone: [facility] 07-28-2024 13:58-0500 Respiratory rate 18 /min Shinal Maynard TRAINING TECHNICIAN-SHEETER OPERATOR Work Phone: [facility] 07-28-2024 13:58-0500 SaO2% (BldA) [Mass fraction] 99 % Shinal Maynard TRAINING TECHNICIAN-SHEETER OPERATOR Work Phone: [facility] 07-28-2024 13:58-0500 Systolic blood pressure 138 mm[Hg] Shinal Maynard TRAINING TECHNICIAN-SHEETER OPERATOR Work Phone: [facility] 08-06-2023 09:50-0500 Body height 182.[address] Jocelin Saunders Work Phone: [facility] 08-06-2023 09:48-0500 Body mass index (BMI) [Ratio] 32.9 kg/m2 Dr. Jocelin Saunders Work Phone: [facility] 08-06-2023 09:48-0500 Body temperature 97.9 [degF] Dr. Jocelin Saunders Work Phone: [facility] 08-06-2023 09:48-0500 Body weight 110.[address] Jocelin Saunders Work Phone: [facility] 08-06-2023 09:48-0500 Diastolic blood pressure 78 mm[Hg] Dr. Jocelin Saunders Work Phone: [facility] 08-06-2023 09:48-0500 Heart rate 59 /min Dr. Jocelin Saunders Work Phone: [facility] 08-06-2023 09:48-0500 Respiratory rate 18 /min Dr. Jocelin Saunders Work Phone: [facility] 08-06-2023 09:48-0500 SaO2% (BldA) [Mass fraction] 96 % Dr. Jocelin Saunders Work Phone: [facility] 08-06-2023 09:48-0500 Systolic blood pressure 133 mm[Hg] Dr. Jocelin Saunders Work Phone: [facility] 07-30-2023 13:00-0500 Body mass index (BMI) [Ratio] 32.85 kg/m2 Katelyn Lawton MD Work Phone: [facility] 07-30-2023 13:00-0500 Body temperature 97.81 [degF] Katelyn Lawton MD Work Phone: [facility] 07-30-2023 13:00-0500 Body weight 110 kg Katelyn Lawton MD Work Phone: [facility] 07-30-2023 13:00-0500 Diastolic blood pressure 78 mm[Hg] Katelyn Lawton MD Work Phone: [facility] 07-30-2023 13:00-0500 Heart rate 63 /min Katelyn Lawton MD Work Phone: [facility] 07-30-2023 13:00-0500 Respiratory rate 18 /min Katelyn Lawton MD Work Phone: [facility] 07-30-2023 13:00-0500 SaO2% (BldA) [Mass fraction] 95 % Katelyn Lawton MD Work Phone: [facility] 07-30-2023 13:00-0500 Systolic blood pressure 146 mm[Hg] Katelyn Lawton MD Work Phone: [facility] 05-06-2023 11:38-0400 Body height 182.[address] Jocelin Saunders Work Phone: [facility] 05-06-2023 11:38-0400 Body mass index (BMI) [Ratio] 32.5 kg/m2 Dr. Jocelin Saunders Work Phone: [facility] 05-06-2023 11:38-0400 Body temperature 99.3 [degF] Dr. Jocelin Saunders Work Phone: [facility] 05-06-2023 11:38-0400 Body weight 109.[address] Jocelin Saunders Work Phone: [facility] 05-06-2023 11:38-0400 Diastolic blood pressure 73 mm[Hg] Dr. Jocelin Saunders Work Phone: [facility] 05-06-2023 11:38-0400 Heart rate 63 /min Dr. Jocelin Saunders Work Phone: [facility] 05-06-2023 11:38-0400 Respiratory rate 16 /min Dr. Jocelin Saunders Work Phone: [facility] 05-06-2023 11:38-0400 SaO2% (BldA) [Mass fraction] 96 % Dr. Jocelin Saunders Work Phone: [facility] 05-06-2023 11:38-0400 Systolic blood pressure 120 mm[Hg] Dr. Jocelin Saunders Work Phone: [facility] 05-03-2023 12:33-0400 Body weight 108.[address] Jocelin Saunders Work Phone: [facility] 05-03-2023 12:33-0400 Diastolic blood pressure 75 mm[Hg] Dr. Jocelin Saunders Work Phone: [facility] 05-03-2023 12:33-0400 Heart rate 62 /min Dr. Jocelin Saunders Work Phone: [facility] 05-03-2023 12:33-0400 Respiratory rate 16 /min Dr. Jocelin Saunders Work Phone: [facility] 05-03-2023 12:33-0400 SaO2% (BldA) [Mass fraction] 96 % Dr. Jocelin Saunders Work Phone: [facility] 05-03-2023 12:33-0400 Systolic blood pressure 136 mm[Hg] Dr. Jocelin Saunders Work Phone: [facility] 04-03-2023 08:32-0400 Body height 182.88 cm [...] SaO2% (BldA) [Mass fraction] 97 % Terese [facility]; [facility] Work Phone: 04-03-2023 08:32-0400 Systolic blood pressure 112 mm[Hg] Terese [facility]; [facility] Work Phone: 01-30-2023 09:03-0400 Body height 182.88 cm [facility]; [facility] Work Phone: 01-30-2023 09:03-0400 Body mass index (BMI) [Ratio] 32.43 kg/m2 [facility]; [facility] Work Phone: 01-30-2023 09:03-0400 Body surface area Derived from formula 2.3 m2 [facility]; [facility] Work Phone: 01-30-2023 09:03-0400 Body temperature 98 [degF] [facility]; [facility] Work Phone: 01-30-2023 09:03-0400 Body weight 108.47 kg [facility]; [facility] Work Phone: 01-30-2023 09:03-0400 Diastolic blood pressure 70 mm[Hg] [facility]; [facility] Work Phone: 01-30-2023 09:03-0400 Heart rate 65 /min [facility]; [facility] Work Phone: 01-30-2023 09:03-0400 Respiratory rate 16 /min [facility]; [facility] Work Phone: 01-30-2023 09:03-0400 SaO2% (BldA) [Mass fraction] 95 % [facility]; [facility] Work Phone: 01-30-2023 09:03-0400 Systolic blood pressure 122 mm[Hg] [facility]; [facility] Work Phone: 12-31-2022 09:14-0400 Body height 182.88 cm [facility]; [facility] Work Phone: 12-31-2022 09:14-0400 Body mass index (BMI) [Ratio] 32.55 kg/m2 [facility]; [facility] Work Phone: 12-31-2022 09:14-0400 Body surface area Derived from formula 2.3 m2 [facility]; [facility] Work Phone: 12-31-2022 09:14-0400 Body temperature 97 [degF] [facility]; [facility] Work Phone: 12-31-2022 09:14-0400 Body weight 108.86 kg [facility]; [facility] Work Phone: 12-31-2022 09:14-0400 Diastolic blood pressure 70 mm[Hg] [facility]; [facility] Work Phone: 12-31-2022 09:14-0400 Heart rate 55 /min [facility]; [facility] Work Phone: 12-31-2022 09:14-0400 SaO2% (BldA) [Mass fraction] 96 % [facility]; [facility] Work Phone: 12-31-2022 09:14-0400 Systolic blood pressure 122 mm[Hg] Víctor Barton [employer] [facility]; [facility] Work Phone: 10-22-2022 07:42-0400 Body height 182.[address] Jocelin Saunders Work Phone: [facility] 10-22-2022 07:42-0400 Body mass index (BMI) [Ratio] 31.8 kg/m2 Dr. Jocelin Saunders Work Phone: [facility] 10-22-2022 07:42-0400 Body temperature 97.4 [degF] Dr. Jocelin Saunders Work Phone: [facility] 10-22-2022 07:42-0400 Body weight 106.[address] Jocelin Saunders Work Phone: [facility] 10-22-2022 07:42-0400 Diastolic blood pressure 83 mm[Hg] Dr. Jocelin Saunders Work Phone: [facility] 10-22-2022 07:42-0400 Heart rate 65 /min Dr. Jocelin Saunders Work Phone: [facility] 10-22-2022 07:42-0400 Respiratory rate 18 /min Dr. Jocelin Saunders Work Phone: [facility] 10-22-2022 07:42-0400 SaO2% (BldA) [Mass fraction] 96 % Dr. Jocelin Saunders Work Phone: [facility] 10-22-2022 07:42-0400 Systolic blood pressure 134 mm[Hg] Dr. Jocelin Saunders Work Phone: [facility] 10-18-2022 08:50-0400 Body temperature 98.3 [degF] Dr. Jocelin Saunders Work Phone: [facility] 10-18-2022 08:50-0400 Diastolic blood pressure 81 mm[Hg] Dr. Jocelin Saunders Work Phone: [facility] 10-18-2022 08:50-0400 Heart rate 62 /min Dr. Jocelin Saunders Work Phone: [facility] 10-18-2022 08:50-0400 Respiratory rate 17 /min Dr. Jocelin Saunders Work Phone: [facility] 10-18-2022 08:50-0400 SaO2% (BldA) [Mass fraction] 96 % Dr. Jocelin Saunders Work Phone: [facility] 10-18-2022 08:50-0400 Systolic blood pressure 130 mm[Hg] Dr. Jocelin Saunders Work Phone: [facility] 10-05-2022 12:50-0400 Body height 182.[address] Jocelin Saunders Work Phone: [facility] 10-05-2022 12:50-0400 Body mass index (BMI) [Ratio] 31.5 kg/m2 Dr. Jocelin Saunders Work Phone: [facility] 10-05-2022 12:50-0400 Diastolic blood pressure 69 mm[Hg] Dr. Jocelin Saunders Work Phone: [facility] 10-05-2022 12:50-0400 Systolic blood pressure 114 mm[Hg] Dr. Jocelin Saunders Work Phone: [facility] 10-05-2022 10:21-0400 Body temperature 98.4 [degF] Dr. Jocelin Saunders Work Phone: [facility] 10-05-2022 10:21-0400 Body weight 105.[address] Jocelin Saunders Work Phone: [facility] 10-05-2022 10:21-0400 Heart rate 62 /min Dr. Jocelin Saunders Work Phone: [facility] 10-05-2022 10:21-0400 Respiratory rate 15 /min Dr. Jocelin Saunders Work Phone: [facility] 10-05-2022 10:21-0400 SaO2% (BldA) [Mass fraction] 95 % Dr. Jocelin Saunders Work Phone: [facility] 10-04-2022 10:44-0400 Body mass index (BMI) [Ratio] 31.9 kg/m2 Dr. Jocelin Saunders Work Phone: [facility] 10-04-2022 10:44-0400 Body temperature 98.7 [degF] Dr. Jocelin Saunders Work Phone: [facility] 10-04-2022 10:44-0400 Body weight 106.[address] Jocelin Saunders Work Phone: [facility] 10-04-2022 10:44-0400 Diastolic blood pressure 78 mm[Hg] Dr. Jocelin Saunders Work Phone: [facility] 10-04-2022 10:44-0400 Heart rate 64 /min Dr. Jocelin Saunders Work Phone: [facility] 10-04-2022 10:44-0400 Respiratory rate 16 /min Dr. Jocelin Saunders Work Phone: [facility] 10-04-2022 10:44-0400 SaO2% (BldA) [Mass fraction] 97 % Dr. Jocelin Saunders Work Phone: [facility] 10-04-2022 10:44-0400 Systolic blood pressure 123 mm[Hg] Dr. Jocelin Saunders Work Phone: [facility] 09-27-2022 08:04-0500 Body height 182.88 cm [...] 31.6 kg/m2 Dr. Jocelin Saunders Work Phone: [facility] 09-20-2022 13:53-0500 Body temperature 98.9 [degF] Dr. Jocelin Saunders Work Phone: [facility] 09-20-2022 13:53-0500 Body weight 105.[address] Jocelin Saunders Work Phone: [facility] 09-20-2022 13:53-0500 Diastolic blood pressure 75 mm[Hg] Dr. Jocelin Saunders Work Phone: [facility] 09-20-2022 13:53-0500 Heart rate 72 /min Dr. Jocelin Saunders Work Phone: [facility] 09-20-2022 13:53-0500 Respiratory rate 18 /min Dr. Jocelin Saunders Work Phone: [facility] 09-20-2022 13:53-0500 SaO2% (BldA) [Mass fraction] 95 % Dr. Jocelin Saunders Work Phone: [facility] 09-20-2022 13:53-0500 Systolic blood pressure 123 mm[Hg] Dr. Jocelin Saunders Work Phone: [facility] 09-06-2022 10:49-0500 Body height 182.[address] Jocelin Saunders Work Phone: [facility] 09-06-2022 10:49-0500 Body mass index (BMI) [Ratio] 31.6 kg/m2 Dr. Jocelin Saunders Work Phone: [facility] 09-06-2022 10:49-0500 Body temperature 98.3 [degF] Dr. Jocelin Saunders Work Phone: [facility] 09-06-2022 10:49-0500 Body weight 105.[address] Jocelin Saunders Work Phone: [facility] 09-06-2022 10:49-0500 Diastolic blood pressure 80 mm[Hg] Dr. Jocelin Saunders Work Phone: [facility] 09-06-2022 10:49-0500 Heart rate 68 /min Dr. Jocelin Saunders Work Phone: [facility] 09-06-2022 10:49-0500 Respiratory rate 16 /min Dr. Jocelin Saunders Work Phone: [facility] 09-06-2022 10:49-0500 SaO2% (BldA) [Mass fraction] 95 % Dr. Jocelin Saunders Work Phone: [facility] 09-06-2022 10:49-0500 Systolic blood pressure 121 mm[Hg] Dr. Jocelin Saunders Work Phone: [facility] 08-30-2022 12:56-0500 Body mass index (BMI) [Ratio] 31.7 kg/m2 Dr. Jocelin Saunders Work Phone: [facility] 08-30-2022 12:56-0500 Body temperature 98.7 [degF] Dr. Jocelin Saunders Work Phone: [facility] 08-30-2022 12:56-0500 Body weight 106.[address] Jocelin Saunders Work Phone: [facility] 08-30-2022 12:56-0500 Diastolic blood pressure 76 mm[Hg] Dr. Jocelin Saunders Work Phone: [facility] 08-30-2022 12:56-0500 Heart rate 70 /min Dr. Jocelin Saunders Work Phone: [facility] 08-30-2022 12:56-0500 Respiratory rate 18 /min Dr. Jocelin Saunders Work Phone: [facility] 08-30-2022 12:56-0500 SaO2% (BldA) [Mass fraction] 94 % Dr. Jocelin Saunders Work Phone: [facility] 08-30-2022 12:56-0500 Systolic blood pressure 129 mm[Hg] Dr. Jocelin Saunders Work Phone: [facility] 08-23-2022 10:47-0500 Body height 182.[address] Jocelin Saunders Work Phone: [facility] 08-23-2022 10:47-0500 Body mass index (BMI) [Ratio] 31.3 kg/m2 Dr. Jocelin Saunders Work Phone: [facility] 08-23-2022 10:47-0500 Body temperature 97.8 [degF] Dr. Jocelin Saunders Work Phone: [facility] 08-23-2022 10:47-0500 Body weight 104.[address] Jocelin Saunders Work Phone: [facility] 08-23-2022 10:47-0500 Diastolic blood pressure 78 mm[Hg] Dr. Jocelin Saunders Work Phone: [facility] 08-23-2022 10:47-0500 Heart rate 65 /min Dr. Jocelin Saunders Work Phone: [facility] 08-23-2022 10:47-0500 Respiratory rate 16 /min Dr. Jocelin Saunders Work Phone: [facility] 08-23-2022 10:47-0500 SaO2% (BldA) [Mass fraction] 96 % Dr. Jocelin Saunders Work Phone: [facility] 08-23-2022 10:47-0500 Systolic blood pressure 129 mm[Hg] Dr. Jocelin Saunders Work Phone: [facility] 08-20-2022 06:58-0500 Body height 182.[address] Jocelin Saunders Work Phone: [facility] 08-20-2022 06:58-0500 Body mass index (BMI) [Ratio] 31 kg/m2 Dr. Jocelin Saunders Work Phone: [facility] 08-20-2022 06:58-0500 Body temperature 97.5 [degF] Dr. Jocelin Saunders Work Phone: [facility] 08-20-2022 06:58-0500 Body weight 103.[address] Jocelin Saunders Work Phone: [facility] 08-20-2022 06:58-0500 Diastolic blood pressure 81 mm[Hg] Dr. Jocelin Saunders Work Phone: [facility] 08-20-2022 06:58-0500 Heart rate 70 /min Dr. Jocelin Saunders Work Phone: [facility] 08-20-2022 06:58-0500 Respiratory rate 18 /min Dr. Jocelin Saunders Work Phone: [facility] 08-20-2022 06:58-0500 SaO2% (BldA) [Mass fraction] 95 % Dr. Jocelin Saunders Work Phone: [facility] 08-20-2022 06:58-0500 Systolic blood pressure 138 mm[Hg] Dr. Jocelin Saunders Work Phone: [facility] 08-16-2022 13:07-0500 Body height 182.[address] Jocelin Saunders Work Phone: [facility] 08-16-2022 13:07-0500 Body mass index (BMI) [Ratio] 31.1 kg/m2 Dr. Jocelin Saunders Work Phone: [facility] 08-16-2022 13:07-0500 Body temperature 98.6 [degF] Dr. Jocelin Saunders Work Phone: [facility] 08-16-2022 13:07-0500 Body weight 104.[address] Jocelin Suanders Work Phone: [facility] 08-16-2022 13:07-0500 Diastolic blood pressure 77 mm[Hg] Dr. Jocelin Saunders Work Phone: [facility] 08-16-2022 13:07-0500 Heart rate 69 /min Dr. Jocelin Saunders Work Phone: [facility] 08-16-2022 13:07-0500 Respiratory rate 16 /min Dr. Jocelin Saunders Work Phone: [facility] 08-16-2022 13:07-0500 SaO2% (BldA) [Mass fraction] 96 % Dr. Jocelin Saunders Work Phone: [facility] 08-16-2022 13:07-0500 Systolic blood pressure 132 mm[Hg] Dr. Jocelin Saunders Work Phone: [facility] 08-09-2022 14:47-0500 Body mass index (BMI) [Ratio] 31.6 kg/m2 Dr. Jocelin Saunders Work Phone: [facility] 08-09-2022 14:47-0500 Body temperature 98.1 [degF] Dr. Jocelin Saunders Work Phone: [facility] 08-09-2022 14:47-0500 Body weight 105.[address] Jocelin Saunders Work Phone: [facility] 08-09-2022 14:47-0500 Diastolic blood pressure 84 mm[Hg] Dr. Jocelin Saunders Work Phone: [facility] 08-09-2022 14:47-0500 Heart rate 72 /min Dr. Jocelin Saunders Work Phone: [facility] 08-09-2022 14:47-0500 Respiratory rate 16 /min Dr. Jocelin Saunders Work Phone: [facility] 08-09-2022 14:47-0500 SaO2% (BldA) [Mass fraction] 93 % Dr. Jocelin Saunders Work Phone: [facility] 08-09-2022 14:47-0500 Systolic blood pressure 167 mm[Hg] Dr. Jocelin Saunders Work Phone: [facility] 08-09-2022 08:15-0500 Body weight 106.[address] Jocelin Saunders Work Phone: [facility] 08-09-2022 08:15-0500 Heart rate 66 /min Dr. Jocelin Saunders Work Phone: [facility] 08-09-2022 08:15-0500 SaO2% (BldA) [Mass fraction] 95 % Dr. Jocelin Saunders Work Phone: [facility] 08-08-2022 14:19-0500 Body mass index (BMI) [Ratio] 31.8 kg/m2 Dr. Jocelin Saunders Work Phone: [facility] 08-08-2022 14:19-0500 Body temperature 98.4 [degF] Dr. Jocelin Saunders Work Phone: [facility] 08-08-2022 14:19-0500 Body weight 106.[address] Jocelin Saunders Work Phone: [facility] 08-08-2022 14:19-0500 Diastolic blood pressure 90 mm[Hg] Dr. Jocelin Saunders Work Phone: [facility] 08-08-2022 14:19-0500 Heart rate 61 /min Dr. Jocelin Saunders Work Phone: [facility] 08-08-2022 14:19-0500 Respiratory rate 18 /min Dr. Jocelin Saunders Work Phone: [facility] 08-08-2022 14:19-0500 SaO2% (BldA) [Mass fraction] 95 % Dr. Jocelin Saunders Work Phone: [facility] 08-08-2022 14:19-0500 Systolic blood pressure 158 mm[Hg] Dr. Jocelin Saunders Work Phone: [facility] 07-09-2022 08:12-0500 Body mass index (BMI) [Ratio] 31.9 kg/m2 Dr. Jocelin Saunders Work Phone: [facility] 07-09-2022 08:12-0500 Body temperature 97.5 [degF] Dr. Jocelin Saunders Work Phone: [facility] 07-09-2022 08:12-0500 Body weight 106.[address] Jocelin Saunders Work Phone: [facility] 07-09-2022 08:12-0500 Diastolic blood pressure 74 mm[Hg] Dr. Jocelin Saunders Work Phone: [facility] 07-09-2022 08:12-0500 Heart rate 72 /min Dr. Jocelin Saunders Work Phone: [facility] 07-09-2022 08:12-0500 Respiratory rate 20 /min Dr. Jocelin Saunders Work Phone: [facility] 07-09-2022 08:12-0500 SaO2% (BldA) [Mass fraction] 93 % Dr. Jocelin Saunders Work Phone: [facility] 07-09-2022 08:12-0500 Systolic blood pressure 128 mm[Hg] Dr. Jocelin Saunders Work Phone: [facility] 07-04-2022 11:35-0500 Body mass index (BMI) [Ratio] 32.2 kg/m2 Dr. Jocelin Saunders Work Phone: [facility] 07-04-2022 11:35-0500 Body temperature 99 [degF] Dr. Jocelin Saunders Work Phone: [facility] 07-04-2022 11:35-0500 Body weight 107.[address] Jocelin Saunders Work Phone: [facility] 07-04-2022 11:35-0500 Diastolic blood pressure 66 mm[Hg] Dr. Jocelin Saunders Work Phone: [facility] 07-04-2022 11:35-0500 Heart rate 69 /min Dr. Jocelin Saunders Work Phone: [facility] 07-04-2022 11:35-0500 Respiratory rate 22 /min Dr. Jocelin Saunders Work Phone: [facility] 07-04-2022 11:35-0500 SaO2% (BldA) [Mass fraction] 94 % Dr. Jocelin Saunders Work Phone: [facility] 07-04-2022 11:35-0500 Systolic blood pressure 152 mm[Hg] Dr. Jocelin Saunders Work Phone: [facility] 06-28-2022 09:54-0500 Body height 182.88 cm Juanito Wells [facility]; [facility] Work Phone: 06-28-2022 09:54-0500 Body mass index (BMI) [Ratio] 32.19 kg/m2 [facility] Work Phone: 06-28-2022 09:54-0500 Body surface area Derived from formula 2.29 m2 Juanito Wells [facility]; [facility] Work Phone: 06-28-2022 09:54-0500 Body temperature 98.4 [degF] Juanito Wells [facility]; [facility] Work Phone: 06-28-2022 09:54-0500 Body weight 107.67 kg Juanito Wells [facility]; [facility] Work Phone: 06-28-2022 09:54-0500 Diastolic blood pressure 68 mm[Hg[facility] Work Phone: 06-28-2022 09:54-0500 Heart rate 68 /min Juanito Wells [facility]; [facility] Work Phone: 06-28-2022 09:54-0500 Respiratory rate 18 /min [facility]; [facility] Work Phone: 06-28-2022 09:54-0500 SaO2% (BldA) [Mass fraction] 94 % tonya [facility]; [facility] Work Phone: 06-28-2022 09:54-0500 Systolic blood pressure 114 mm[Hg[facility] Work Phone: 06-11-2022 13:04-0500 Body mass index (BMI) [Ratio] 32 kg/m2 Dr. Jocelin Saunders Work Phone: [facility] 06-11-2022 13:04-0500 Body temperature 97.8 [degF] Dr. Jocelin Saunders Work Phone: [facility] 06-11-2022 13:04-0500 Body weight 107.[address] Jocelin Saunders Work Phone: [facility] 06-11-2022 13:04-0500 Diastolic blood pressure 83 mm[Hg] Dr. Jocelin Saunders Work Phone: [facility] 06-11-2022 13:04-0500 Heart rate 83 /min Dr. Jocelin Saunders Work Phone: [facility] 06-11-2022 13:04-0500 Respiratory rate 16 /min Dr. Jocelin Saunders Work Phone: [facility] 06-11-2022 13:04-0500 SaO2% (BldA) [Mass fraction] 93 % Dr. Jocelin Saunders Work Phone: [facility] 06-11-2022 13:04-0500 Systolic blood pressure 137 mm[Hg] Dr. Jocelin Saunders Work Phone: [facility] 06-06-2022 08:46-0500 Body height 182.88 cm Eufemia Patel [facility]; [facility] Work Phone: 06-06-2022 08:46-0500 Body mass index (BMI) [Ratio] 32.01 kg/m2 Eufemia Patel [facility]; [facility] Work Phone: 06-06-2022 08:46-0500 Body surface area Derived from formula 2.29 m2 Eufemia Patel [facility]; [facility] Work Phone: 06-06-2022 08:46-0500 Body temperature 97.3 [degF] Eufemia Patel [facility]; [facility] Work Phone: 06-06-2022 08:46-0500 Body weight 107.05 kg Eufemia Patel [facility]; [facility] Work Phone: 06-06-2022 08:46-0500 Diastolic blood pressure 80 mm[Hg] Eufemia Patel [facility]; [facility] Work Phone: 06-06-2022 08:46-0500 Heart rate 90 /min Eufemia Patel [facility]; [facility] Work Phone: 06-06-2022 08:46-0500 Respiratory rate 16 /min Eufemia Patel [facility]; [facility] Work Phone: 06-06-2022 08:46-0500 SaO2% (BldA) [Mass fraction] 95 % Eufemia Patel [facility]; [facility] Work Phone: 06-06-2022 08:46-0500 Systolic blood pressure 120 mm[Hg] Eufemia Patel [facility]; [facility] Work Phone: 06-04-2022 15:19-0500 Diastolic blood pressure 84 mm[Hg] Dr. Jocelin Saunders Work Phone: [facility] 06-04-2022 15:19-0500 Heart rate 84 /min Dr. Jocelin Saunders Work Phone: [facility] 06-04-2022 15:19-0500 Respiratory rate 17 /min Dr. Jocelin Saunders Work Phone: [facility] 06-04-2022 15:19-0500 SaO2% (BldA) [Mass fraction] 95 % Dr. Jocelin Saunders Work Phone: [facility] 06-04-2022 15:19-0500 Systolic blood pressure 136 mm[Hg] Dr. Jocelin Saunders Work Phone: [facility] 06-04-2022 12:56-0500 Inhaled oxygen flow rate 2 L/min Dr. Jocelin Saunders Work Phone: [facility] 06-04-2022 10:34-0500 Body temperature 98.6 [degF] Dr. Jocelin Saunders Work Phone: [facility] 06-04-2022 08:45-0500 Body height 182.[address] Jocelin Saunders Work Phone: [facility] Work Phone: 06-04-2022 08:45-0500 Body mass index (BMI) [Ratio] 32.5 kg/m2 Dr. Jocelin Saunders Work Phone: [facility] 06-04-2022 08:45-0500 Body weight 108.[address] Jocelin Saunders Work Phone: [facility] 06-03-2022 11:43-0500 Body temperature 97.8 [degF] Dr. Jocelin Saunders Work Phone: [facility] 06-03-2022 11:43-0500 Diastolic blood pressure 78 mm[Hg] Dr. Jocelin Saunders Work Phone: [facility] 06-03-2022 11:43-0500 Heart rate 66 /min Dr. Jocelin Saunders Work Phone: [facility] 06-03-2022 11:43-0500 Respiratory rate 18 /min Dr. Jocelin Saunders Work Phone: [facility] 06-03-2022 11:43-0500 SaO2% (BldA) [Mass fraction] 99 % Dr. Jocelin Saunders Work Phone: [facility] 06-03-2022 11:43-0500 Systolic blood pressure 134 mm[Hg] Dr. Jocelin Saunders Work Phone: [facility] 06-03-2022 07:50-0500 Body height 182.[address] Jocelin Saunders Work Phone: [facility] Work Phone: 06-03-2022 07:50-0500 Body mass index (BMI) [Ratio] 32.1 kg/m2 Dr. Jocelin Saunders Work Phone: [facility] 06-03-2022 07:50-0500 Body weight 107.[address] Jocelin Saunders Work Phone: [facility] 04-04-2022 10:41-0400 Body mass index (BMI) [Ratio] 32.1 kg/m2 Dr. Jocelin Saunders Work Phone: [facility] Work Phone: 04-04-2022 10:41-0400 Body temperature 98.5 [degF] Dr. Jocelin Saunders Work Phone: [facility] Work Phone: 04-04-2022 10:41-0400 Body weight 107.[address] Jocelin Saunders Work Phone: [facility] Work Phone: 04-04-2022 10:41-0400 Diastolic blood pressure 78 mm[Hg] Dr. Jocelin Saunders Work Phone: [facility] Work Phone: 04-04-2022 10:41-0400 Heart rate 63 /min Dr. Jocelin Saunders Work Phone: [facility] Work Phone: 04-04-2022 10:41-0400 Respiratory rate 18 /min Dr. Jocelin Saunders Work Phone: [facility] Work Phone: 04-04-2022 10:41-0400 SaO2% (BldA) [Mass fraction] 96 % Dr. Jocelin Saunders Work Phone: [facility] Work Phone: 04-04-2022 10:41-0400 Systolic blood pressure 134 mm[Hg] Dr. Jocelin Saunders Work Phone: [facility] Work Phone: 03-05-2022 08:15-0400 Body height 182.88 cm Eufemia Patel CMA [facility]; [facility] Work Phone: 03-05-2022 08:15-0400 Body mass index (BMI) [Ratio] 32.96 kg/m2 Eufemia Patel CMA [facility]; Comprehensive [...] 08:15-0400 Heart rate 67 /min Eufemia Patel [employer]; [facility] Work Phone: Comment on above: Pattern: Regular 03-05-2022 08:15-0400 Respiratory rate 18 /min Eufemia Patel CMA [facility]; [facility] Work Phone: Comment on above: Pattern: Unlabored 03-05-2022 08:15-0400 SaO2% (BldA) [Mass fraction] 95 % Eufemia Patel [facility]; [facility] Work Phone: Comment on above: Room air 03-05-2022 08:15-0400 Systolic blood pressure 118 mm[Hg] Eufemia Patel [facility]; [facility] Work Phone: Comment on above: Patient Position: Sitting; Cuff Location : Left Arm; Cuff Size: Standard 02-09-2022 09:43-0400 Diastolic blood pressure 83 mm[Hg] Dr. Jocelin Saunders Work Phone: [facility] Work Phone: 02-09-2022 09:43-0400 Systolic blood pressure 132 mm[Hg] Dr. Jocelin Saunders Work Phone: [facility] Work Phone: 02-09-2022 08:20-0400 Body mass index (BMI) [Ratio] 32.6 kg/m2 Dr. Jocelin Saunders Work Phone: [facility] Work Phone: 02-09-2022 08:20-0400 Body weight 109.[address] Jocelin Saunders Work Phone: [facility] Work Phone: 02-09-2022 08:20-0400 Heart rate 66 /min Dr. Jocelin Saunders Work Phone: [facility] Work Phone: 02-09-2022 08:20-0400 Respiratory rate 16 /min Dr. Jocelin Saunders Work Phone: [facility] Work Phone: 02-09-2022 08:20-0400 SaO2% (BldA) [Mass fraction] 96 % Dr. Jocelin Saunders Work Phone: [facility] Work Phone: 10-30-2021 10:15-0400 Body height 182.88 cm [facility]; [facility] Work Phone: 10-30-2021 10:15-0400 Body mass index (BMI) [Ratio] 32.41 kg/m2 [facility]; [facility] Work [...] (BldA) [Mass fraction] 97 % Eufemia Patel [facility]; [facility] Work Phone: Comment on above: Room air 10-30-2021 10:15-0400 Systolic blood pressure 118 mm[Hg] Eufemia Patel CMA [facility]; [facility] Work Phone: Comment on above: Patient Position: Sitting; Cuff Location : Left Arm; Cuff Size: Standard 10-30-2021 09:32-0400 Body height 182.88 cm Eufemia Patel [facility]; [facility] Work Phone: 10-30-2021 09:32-0400 Body mass index (BMI) [Ratio] 32.69 kg/m2 Eufemia Patel [facility]; [facility] Work Phone: 10-30-2021 09:32-0400 Body surface area Derived from formula 2.31 m2 Eufemia Patel [facility]; [facility] Work Phone: 10-30-2021 09:32-0400 Body weight 109.32 kg Eufemia Patel [facility]; [facility] Work Phone: 06-26-2021 09:08-0500 Body height 182.88 cm Letty Slarb [employer] [facility]; [facility] Work Phone: 06-26-2021 09:08-0500 Body mass index (BMI) [Ratio] 32.69 kg/m2 Letty Slarb [employer] [facility]; [facility] Work Phone: 06-26-2021 09:08-0500 Body surface area Derived from formula 2.31 m2 Letty Slarb [employer] [facility]; [facility] Work Phone: 06-26-2021 09:08-0500 Body temperature 97.3 [degF] Letty Slarb [employer] [facility]; [facility] Work Phone: 06-26-2021 09:08-0500 Body weight 109.32 kg Letty Slarb [employer] [facility]; [facility] Work Phone: 06-26-2021 09:08-0500 Diastolic blood pressure 78 mm[Hg] Letty Slarb [employer] [facility]; [facility] Work Phone: Comment on above: Patient Position: Sitting; Cuff Location : Left Arm; Cuff Size: Standard 06-26-2021 09:08-0500 Heart rate 74 /min Letty Slarb [employer] [facility]; [facility] Work Phone: Comment on above: Pattern: Regular 06-26-2021 09:08-0500 Respiratory rate 16 /min Letty Slarb [employer] [facility] Internal Medicine; [facility] Work Phone: Comment on above: Pattern: Unlabored 06-26-2021 09:08-0500 SaO2% (BldA) [Mass fraction] 97 % Letty Slarb [facility]; [facility] Work Phone: Comment on above: Room air 06-26-2021 09:08-0500 Systolic blood pressure 122 mm[Hg] Letty Bolton [facility]; [facility] Work Phone: Comment on above: Patient Position: Sitting; Cuff Location : Left Arm; Cuff Size: Standard 12-21-2020 07:48-0400 Body height 182.88 cm [facility]; [facility] Work Phone: 12-21-2020 07:48-0400 Body mass index (BMI) [Ratio] 31.6 kg/m2 [facility]; [facility] Work Phone: 12-21-2020 07:48-0400 Body surface area Derived from formula 2.27 m2 [facility] Internal Medicine; [facility] Work Phone: 12-21-2020 07:48-0400 Body temperature 96.9 [degF] [facility]; [facility] Work Phone: Comment on above: Method: Thermal Scan 12-21-2020 07:48-0400 Body weight 105.69 kg [facility] Internal Medicine; [facility] Work Phone: 12-21-2020 07:48-0400 Diastolic blood pressure 70 mm[Hg] [facility]; [facility] Work Phone: Comment on above: Patient Position: Sitting; Cuff Location : Left Arm; Cuff Size: Standard 12-21-2020 07:48-0400 Heart rate 71 /min [facility]; [facility] Work Phone: Comment on above: Pattern: Regular 12-21-2020 07:48-0400 Respiratory rate 16 /min [facility] Internal Medicine; [facility] Work Phone: Comment on above: Pattern: Unlabored 12-21-2020 07:48-0400 SaO2% (BldA) [Mass fraction] 98 % Polina Cross [employer] [facility]; [facility] Work Phone: Comment on above: Room air 12-21-2020 07:48-0400 Systolic blood pressure 122 mm[Hg] Polinajulio cesar Bhat [facility]; [facility] Work Phone: Comment on above: Patient Position: Sitting; Cuff Location : Left Arm; Cuff Size: Standard 08-25-2020 12:56-0500 Body mass index (BMI) [Ratio] 31.3 kg/m2 Dr. Jocelin Saunders Work Phone: [facility] 08-25-2020 12:56-0500 Body temperature 98.7 [degF] Dr. Jocelin Saunders Work Phone: [facility] 08-25-2020 12:56-0500 Body weight 104.[address] Jocelin Saunders Work Phone: [facility] 08-25-2020 12:56-0500 Diastolic blood pressure 87 mm[Hg] Dr. Jocelin Saunders Work Phone: [facility] 08-25-2020 12:56-0500 Heart rate 68 /min Dr. Jocelin Saunders Work Phone: [facility] 08-25-2020 12:56-0500 Respiratory rate 17 /min Dr. Jocelin Saunders Work Phone: [facility] 08-25-2020 12:56-0500 SaO2% (BldA) [Mass fraction] 95 % Dr. Jocelin Saunders Work Phone: [facility] 08-25-2020 12:56-0500 Systolic blood pressure 135 mm[Hg] Dr. Jocelin Saunders Work Phone: [facility] 05-02-2020 09:31-0400 BMI (Body Mass Index) 33.09 kg/m2 [facility] Work Phone: 05-02-2020 09:31-0400 Body weight 110.68 kg [facility] Work Phone: 05-02-2020 09:31-0400 BSA (Body Surface Area) 2.32 m2 [facility] Internal Medicine Work Phone: 05-02-2020 09:31-0400 Height 182.88 cm [facility] Internal Medicine Work Phone: 04-25-2020 10:29-0400 BMI (Body Mass Index) 33.09 kg/m2 Eufemia Patel [facility] Work Phone: 04-25-2020 10:29-0400 Body Temperature 96.9 [degF] Eufemia Patel [facility] Comprehensiv e Internal Medicine Work Phone: Comment on above: Method: Infrared 04-25-2020 10:29-0400 Body weight 110.68 kg Eufemia Patel [facility] Work Phone: 04-25-2020 10:29-0400 BP Diastolic 90 mm[Hg] Eufemia Patel [facility] Work Phone: Comment on above: Patient Position: Sitting; Cuff Location : Left Arm; Cuff Size: Standard 04-25-2020 10:29-0400 BP Systolic 123 mm[Hg] Eufemia Patel [facility] Work Phone: Comment on above: Patient Position: Sitting; Cuff Location : Left Arm; Cuff Size: Standard 04-25-2020 10:29-0400 BSA (Body Surface Area) 2.32 m2 Eufemia Patel [facility] Work Phone: 04-25-2020 10:29-0400 Height 182.88 cm Eufemia Patel [facility] Work Phone: 04-25-2020 10:29-0400 Pulse (Heart Rate) 80 /min Eufemia Patel [facility] Comprehens [facility] Internal Medicine Work Phone: Comment on above: Pattern: Regular 04-25-2020 10:29-0400 Pulse Oximetry 97 % Jocelin Suanders [facility] Internal Medicine Work Phone: Comment on above: Room air 04-25-2020 10:29-0400 Respiratory Rate 16 /min Eufemia Patel CMA Comprehensiv e Internal Medicine Work Phone: Comment on above: Pattern: Unlabored 04-25-2020 10:29-0400 SaO2% (BldA) [Mass fraction] 97 % Eufemia Patel [facility]; [facility] Work Phone: Comment on above: Room air 02-01-2020 13:18-0400 BMI (Body Mass Index) 32.55 kg/m2 Eufemia Patel [facility] Work Phone: 02-01-2020 13:18-0400 Body Temperature 97.6 [degF] Eufemia Patel CMA Comprehens[facility] e Internal Medicine Work Phone: Comment on above: Method: Temporal 02-01-2020 13:18-0400 Body weight 108.86 kg Eufemia Patel [facility] Work Phone: 02-01-2020 13:18-0400 BP Diastolic 80 mm[Hg] Eufemia Patel [facility] Work Phone: Comment on above: Patient Position: Sitting; Cuff Location : Left Arm; Cuff Size: Standard 02-01-2020 13:18-0400 BP Systolic 100 mm[Hg] Eufemia Patel [facility] Work Phone: Comment on above: Patient Position: Sitting; Cuff Location : Left Arm; Cuff Size: Standard 02-01-2020 13:18-0400 BSA (Body Surface Area) 2.3 m2 Eufemia Patel [facility] Work Phone: 02-01-2020 13:18-0400 Height 182.88 cm Eufemia Patel [facility] Work Phone: 02-01-2020 13:18-0400 Pulse (Heart Rate) 115 /min Eufemia Patel CMA Comprehens [facility]anna Internal Medicine Work Phone: Comment on above: Pattern: Regular 02-01-2020 13:18-0400 Pulse Oximetry 97 % Jocelin Saunders [facility] Work Phone: Comment on above: Room air 02-01-2020 13:18-0400 Respiratory Rate 16 /min Eufemia Patel [facility] Comprehensiv e Internal Medicine Work Phone: Comment on above: Pattern: Unlabored 02-01-2020 13:18-0400 SaO2% (BldA) [Mass fraction] 97 % Eufemia Patel [facility]; [facility] Work Phone: Comment on above: Room air 01-11-2020 14:19-0400 BMI (Body Mass Index) 33.77 kg/m2 Eufemia Patel [facility] Work Phone: Comment on above: no vs taken as this is phone encounter d ue to covid 01-11-2020 14:19-0400 Body weight 112.95 kg Eufemia Patel [facility] Work Phone: Comment on above: no vs taken as this is phone encounter d ue to covid 01-11-2020 14:19-0400 BSA (Body Surface Area) 2.34 m2 Eufemia Patel [facility] Work Phone: Comment on above: no vs taken as this is phone encounter d ue to covid 01-11-2020 14:19-0400 Height 182.88 cm Eufemia Patel [facility] Work Phone: Comment on [...] (Heart Rate) 68 /min Talia Nguyen RN [facility] Internal Medicine Work Phone: Comment on [...] (Body Mass Index) 30.72 kg/m2 Eufemia Patel [facility] Work Phone: 01-12-2019 11:11-0400 Body Temperature 97.2 [degF] Eufemia Patel [facility] Comprehensiv e Internal Medicine Work Phone: Comment on above: Method: Temporal 01-12-2019 11:11-0400 Body weight 102.74 kg Eufemia Patel [facility] Work Phone: 01-12-2019 11:11-0400 BP Diastolic 78 mm[Hg] Eufemia Patel [facility] Work Phone: Comment on above: Patient Position: Sitting; Cuff Location : Left Arm; Cuff Size: Standard 01-12-2019 11:11-0400 BP Systolic 106 mm[Hg] Eufemia Patel [facility] Work Phone: Comment on above: Patient Position: Sitting; Cuff Location : Left Arm; Cuff Size: Standard 01-12-2019 11:11-0400 BSA (Body Surface Area) 2.25 m2 Eufemia Patel [facility] Work Phone: 01-12-2019 11:11-0400 Height 182.88 cm Eufemia Patel [facility] Work Phone: 01-12-2019 11:11-0400 Pulse (Heart Rate) 77 /min Eufemia Patel [facility] Comprehens arianna Internal Medicine Work Phone: Comment on above: Pattern: Regular 01-12-2019 11:11-0400 Pulse Oximetry 96 % Jocelin Saunders [facility] Work Phone: Comment on above: Room air 01-12-2019 11:11-0400 Respiratory Rate 18 /min Eufemia Patel CMA Comprehensiv e Internal Medicine Work Phone: Comment on above: Pattern: Unlabored 01-12-2019 11:11-0400 SaO2% (BldA) [Mass fraction] 96 % Eufemia Patel [facility]; [facility] Work Phone: Comment on above: Room air 01-12-2019 11:11-0400 Weight 102.74 kg Jocelin Saunders [facility] Work Phone: 12-22-2018 10:43-0400 BMI (Body Mass Index) 30.45 kg/m2 Eufemia Patel [facility] Work Phone: 12-22-2018 10:43-0400 Body Temperature 96.2 [degF] Eufemia Patel CMA Com[facility] Medicine Work Phone: Comment on above: Method: Temporal 12-22-2018 10:43-0400 Body weight 101.83 kg Eufemia Patel [facility] Work Phone: 12-22-2018 10:43-0400 BP Diastolic 82 mm[Hg] Eufemia Patle [facility] Work Phone: Comment on above: Patient Position: Sitting; Cuff Location : Left Arm; Cuff Size: Standard 12-22-2018 10:43-0400 BP Systolic 116 mm[Hg] Eufemia Patel [facility] Work Phone: Comment on above: Patient Position: Sitting; Cuff Location : Left Arm; Cuff Size: Standard 12-22-2018 10:43-0400 BSA (Body Surface Area) 2.24 m2 Eufemia Patel [facility] Work Phone: 12-22-2018 10:43-0400 Height 182.88 cm Eufemia Patel [facility] Work Phone: 12-22-2018 10:43-0400 Pulse (Heart Rate) 74 /min Eufemia Patel [facility] Comprehens [facility] Internal Medicine Work Phone: Comment on above: Pattern: Regular 12-22-2018 10:43-0400 Pulse Oximetry 95 % Jocelin Saunders [facility] Work Phone: Comment on above: Room air 12-22-2018 10:43-0400 Respiratory Rate 18 /min Eufemia Patel CMA Comprehensiv e Internal Medicine Work Phone: Comment on above: Pattern: Unlabored 12-22-2018 10:43-0400 SaO2% (BldA) [Mass fraction] 95 % Eufemia Patel [facility]; [facility] Work [...] 08:07-0400 Height 182.88 cm Vinod Wyman LPN [facility] Internal Medicine Work Phone: 10-31-2018 08:07-0400 Pulse (Heart Rate) 92 /min Vinod Wyman LPN Comprehensreed e Internal Medicine Work Phone: Comment on above: Pattern: Regular 10-31-2018 08:07-0400 Pulse Oximetry 95 % Jocelin Saunders [facility] Internal Medicine Work Phone: Comment on above: Room air 10-31-2018 08:07-0400 Respiratory Rate 16 /min Vinod Wyman LPN [facility] Work Phone: Comment on above: Pattern: Unlabored 10-31-2018 08:07-0400 SaO2% (BldA) [Mass fraction] 95 % Vinod Wyman LPN [facility] Internal Medicine; [facility] Work Phone: Comment on above: Room air 10-31-2018 08:07-0400 Weight 108.47 kg Jocelin Saunders [facility] Internal Medicine Work Phone: 10-28-2018 08:25-0400 BMI (Body Mass Index) 32.43 kg/m2 Vinod Wyman LPN [facility] Work Phone: 10-28-2018 08:25-0400 Body Temperature 97.6 [degF] Vinod Wyman LPN [facility] Internal Medicine Work Phone: Comment on above: Method: Temporal 10-28-2018 08:25-0400 Body weight 108.47 kg Vinod Wyman LPN [facility] Internal Medicine Work Phone: 10-28-2018 08:25-0400 BP Diastolic 78 mm[Hg] Vinod Wyman LPN [facility] Internal Medicine Work Phone: Comment on above: Patient Position: Sitting; Cuff Location : Left Arm; Cuff Size: Standard 10-28-2018 08:25-0400 BP Systolic 138 mm[Hg] Vinod Wyman LPN [facility] Internal Medicine Work Phone: Comment on above: Patient Position: Sitting; Cuff Location : Left Arm; Cuff Size: Standard 10-28-2018 08:25-0400 BSA (Body Surface Area) 2.3 m2 Vinod Wyman LPN [facility] Internal Medicine Work Phone: 10-28-2018 08:25-0400 Height 182.88 cm Vinod Wyman LPN [facility] Internal Medicine Work Phone: 10-28-2018 08:25-0400 Pulse [...] Rate) 76 /min Talia Nguyen RN Comprehens [facility] Internal Medicine Work Phone: Comment on [...] Facility Start: 06-18-2025 ambulatory Jocelin Saunders Facilit y:[facility] Start: 06-02-2025 Encounter for other preprocedural examination Jhonatan Mona [facility] Start: 05-26-2025 ambulatory Jocelin Saunders Facilit y:[facility] Start: 05-20-2025 End: 05-20-2025 ambulatory Jocelin Saunders Facility:[facility] Start: 05-11-2025 ambulatory Jocelin Saunders Facilit y:[facility] Start: 05-11-2025 End: 05-11-2025 ambulatory Jocelin Saunders Facility:[facility] Start: 05-06-2025 End: 05-06-[address] Sawyer Delgado MD -[facility] Work Phone: Start: 05-06-2025 End: 05-06-[address] Jocelin Saunders DO Work Phone: -[facility] Start: 04-26-[address] Tania Delgado MD -[facility] Start: 04-26-2025 ambulatory Jocelin Saunders Facilit y:[facility] Start: 04-16-2025 End: 04-16-[address] Hector Hsu MD -[facility] Work Phone: Start: 04-16-2025 End: 04-16-[address] Jocelin Saunders DO Work Phone: -[facility] Start: 02-04-2025 End: 02-04-2025 Patient encounter procedure Savi Rodriguez NP- -[facility] Work Phone: Start: 02-04-2025 End: 02-04-[address] Jocelin Saunders DO Work Phone: [facility] Start: 01-21-[address] Tania Delgado MD -[facility] Start: 01-05-2025 End: 01-05-2025 Patient encounter procedure RADHA Gunter -[facility] Work Phone: Start: 01-05-2025 End: 01-05-[address] Jocelin Saunders DO Work Phone: [facility] Work Phone: Start: 11-05-2024 End: 11-05-[address] Sawyer Delgado MD -[facility] Work Phone: Start: 11-05-2024 End: 11-05-2024 ambulatory Jocelin Saunders Facility:[facility] Start: 10-22-[address] Tania Delgado MD -[facility] Start: 10-07-2024 End: 10-07-2024 ambulatory Maxine [...] Registered Recurring Dr. Darek Saunders Work Phone: [facility] Oncology Start: 10-21-2023 End: 10-21-[address] Jocelin Saunders Work Phone: [facility] Work Phone: Start: 10-21-2023 End: 10-21-[address] Jocelin Saunders Work Phone: [facility] Work Phone: Start: 08-06-2023 End: 08-06-[address] Jocelin Saunders Work Phone: [facility] Work Phone: Start: 07-30-2023 End: [...] 06-05-[address] Jocelin Saunders Work Phone: [facility] Work Phone: Start: 06-05-2023 End: 06-05-[address] Jocelin Saunders Work Phone: [facility], [facility] Work Phone: Start: 05-06-2023 End: 05-06-[address] Jocelin Saunders Work Phone: [facility] Work Phone: Start: 05-03-2023 End: 05-03-[address] Jocelin Saunders Work Phone: [facility] Work Phone: Start: 04-22-[address] Darek Saunders Work Phone: [facility] Oncology Start: 04-03-2023 End: 04-03-2023 Office outpatient visit 15 minutes Jocelin Saunders DO Work Phone: [facility] Start: 01-30-2023 End: 01-30-2023 Patient encounter procedure Jocelin Saunders DO Work Phone: [facility] Start: 12-31-2022 End: 12-31-2022 Office outpatient visit 25 minutes Jocelin Saunders DO Work Phone: [facility] Start: 10-22-2022 End: 10-22-[address] [facility] Start: 10-18-[address] Darek Saunders Work Phone: [facility] Oncology Start: 10-18-2022 End: 10-18-[address] Jocelin Saunders Work Phone: [facility] Start: 10-18-2022 Non-patient / Non-visit Dr. Mio Saunders Work Phone: [facility] Start: 10-17-2022 End: 10-17-[address] Jocelin Saunders Work Phone: [facility] Work Phone: Start: 10-17-2022 End: 10-17-[address] Jocelin Saunders Work Phone: [facility]-Cardiovascular Services Start: 10-05-2022 End: 10-05-[address] Jocelin Saunders Work Phone: [facility] Work Phone: Start: 10-05-2022 End: 10-05-[address] Jocelin Saunders Work Phone: [facility] Start: 10-04-[address] Darek Saunders Work Phone: [facility] Oncology Start: 10-04-2022 End: 10-04-2022 Non-patient / Non-visit Dr. Jocelin Saunders Work Phone: [facility] Start: 10-04-2022 End: 10-04-[address] Jocelin Saunders Work Phone: [facility] Care Start: 09-27-2022 ambulatory Jocelin Saunders DO Comp [facility] Med Start: 09-27-2022 End: 09-28-2022 Office outpatient visit 15 minutes Jocelin Saunders DO Work Phone: [facility] Start: 09-27-2022 Jocelin borja DO Work Phone: [facility] Start: 09-20-2022 End: 09-20-[address] Jocelin Saunders Work Phone: [facility] Start: 09-06-[address] Darek Saunders Work Phone: [facility] Oncology Start: 09-06-2022 End: 09-06-[address] Jocelin Saunders Work Phone: [facility] Care Start: 09-05-2022 Non-patient / Non-visit Dr. Mio Saunders Work Phone: [facility] Start: 08-30-2022 End: 08-30-2022 Non-patient / Non-visit Dr. Jocelin Saunders Work Phone: [facility] Start: 08-30-2022 End: 08-30-[address] Jocelin Saunders Work Phone: [facility] Work Phone: Start: 08-30-2022 End: 08-30-[address] Jocelin Saunders Work Phone: [facility] Care Start: 08-23-[address] Darek Saunders Work Phone: [facility] Oncology Start: 08-23-2022 End: 08-23-[address] Jocelin Saunders Work Phone: [facility] Start: 08-20-2022 End: 08-20-[address] [facility]oc[facility]unders [facility] Start: 08-16-2022 End: 08-16-2022 Non-patient / Non-visit Dr. Jocelin Saunders Work Phone: [facility] Start: 08-16-2022 End: 08-16-[address] Jocelin Saunders Work Phone: [facility] Work Phone: Start: 08-16-2022 End: 08-16-[address] Jocelin Saunders Work Phone: [facility]-Pulmonary Services/Neurology Start: 08-16-[address] Darek Saunders Work Phone: [facility] Oncology Start: 08-16-2022 End: 08-16-[address] Jocelin Saunders Work Phone: [facility] Start: 08-15-2022 End: 08-15-2022 Jocelin Saunders DO Work Phone: [facility] Start: 08-09-2022 End: 08-09-[address] Jocelin Saunders Work Phone: [facility] Start: 08-09-2022 Non-patient / Non-visit Dr. Mio Saunders Work Phone: [facility] Start: 08-09-2022 End: 08-09-[address] Jocelin Saunders Work Phone: [facility] Work Phone: Start: 08-09-2022 End: 08-09-[address] Jocelin Saunders Work Phone: [facility]-Pulmonary Services/Neurology Start: 08-08-2022 End: 08-08-2022 Non-patient / Non-visit Dr. Jocelin Saunders Work Phone: [facility] Start: 08-08-2022 End: 08-08-[address] Jocelin Saunders Work Phone: [facility] Work Phone: Start: 08-08-2022 End: 08-08-[address] [facility]oc[facility]unders [facility] Start: 08-08-2022 End: 08-08-[address] Jocelin Saunders Work Phone: [facility] Cancer [facility] Start: 08-06-2022 Non-patient / Non-visit Dr. Mio Saunders Work Phone: [facility] Start: 08-06-2022 End: 08-06-[address] Jocelin Saunders Work Phone: [facility] Work Phone: Start: 08-06-2022 End: 08-06-[address] [facility]oc[facility]unders [facility] Start: 07-09-2022 End: 07-09-[address] Jocelin Saunders [facility] Start: 07-04-2022 End: 07-04-[address] Jocelin Saunders Work Phone: [facility] Start: 07-03-2022 End: 07-03-[address] Jocelin Saunders Work Phone: [facility] Start: 06-28-2022 End: 06-28-2022 Office outpatient visit 25 minutes Jocelin Saunders DO Work Phone: [facility] Start: 06-11-2022 End: 06-11-[address] Jocelin Saunders Work Phone: [facility] Start: 06-06-2022 End: 06-06-2022 Office outpatient visit 15 minutes Jocelin Saunders DO Work Phone: [facility] Start: 06-05-2022 End: 06-05-2022 Emergency department patient visit JADA SHETT[facility] Start: 06-04-2022 End: 06-04-2022 Emergency department patient visit Dr. Jocelin Saunders Work Phone: [facility] Start: 06-03-2022 End: 06-03-2022 Emergency department patient visit Dr. Jocelin Saunders Work Phone: [facility] Start: 04-04-2022 End: 04-04-[address] Jocelin Saunders Work Phone: [facility] Start: 03-22-[address] Darek Saunders Work Phone: [facility] Oncology Start: 03-05-2022 End: 03-05-2022 Office outpatient visit 25 minutes Jocelin Saunders DO Work Phone: [facility] Start: 03-05-2022 Review Jocelin Fearo n DO Work Phone: [facility] Start: 02-09-2022 End: 02-09-[address] Jocelin Saunders Work Phone: [facility] Start: 10-30-2021 End: 10-30-2021 Office outpatient [...] End: 03-02-2020 Phone Encounter Jocelin Saunders [facility] Start: 03-02-2020 End: 03-02-2020 Jocelin Puja DO Work Phone: [facility] Start: 02-22-2020 End: 02-29-2020 Phone Encounter Jocelin Saunders [facility] Start: 02-22-2020 Review Jocelin Puja [facility] Start: 02-22-2020 End: 02-29-2020 Jocelin Puja DO Work Phone: [facility] Start: 02-16-2020 End: 02-17-2020 Phone Encounter Jocelin Saunders [facility] Start: 02-16-2020 Review Jocelin Puja Compreh ens[facility] Internal Medicine Start: 02-16-2020 End: 02-17-2020 Jocelin Puja DO Work Phone: [facility] Start: 02-11-2020 End: 02-11-2020 Phone Encounter Jocelin Saunders [facility] Start: 02-11-2020 End: 02-11-2020 Jocelin Cabreraon DO Work Phone: [facility] Start: 02-08-2020 End: 02-08-2020 Lab Order Jocelin Saunders [facility] Start: 02-08-2020 End: 02-08-2020 Jocelin Cabreraon DO Work Phone: [facility] Start: 02-05-2020 End: 02-05-2020 Lab Order Jocelin Saunders [facility] Start: 02-05-2020 End: 02-05-2020 Jocelinteddy Cabreraon DO Work Phone: [facility] Start: 02-05-2020 End: 02-05-2020 Annotation/Addendum Jocelin Saunders [facility] Start: 02-05-2020 End: 02-05-2020 Jocelin Cabreraon DO Work Phone: [facility] Start: 02-05-2020 End: 02-05-2020 Phone Encounter Jocelin Saunders [facility] Start: 02-05-2020 End: 02-05-2020 Jocelin Cabreraon DO Work Phone: [facility] Start: 02-05-2020 End: 02-05-2020 Phone Encounter Jocelin Saunders [facility] Start: 02-05-2020 End: 02-05-2020 Jocelin Cabreraon DO Work Phone: [facility] Start: 02-04-2020 End: 02-04-2020 Phone Encounter Jocelin Saunders [facility] Start: 02-04-2020 End: 02-04-2020 Jocelin Puja DO Work Phone: [facility] Start: 02-01-2020 End: 02-01-2020 Office outpatient visit 15 minutes Jocelin Puja [facility] Start: 01-29-2020 End: 01-29-2020 Annotation/Addendum Jocelin Cabreraon [facility] Start: 01-29-2020 End: 01-29-2020 Jocelin [...] encounter status Dr. Samanta Saunders Work Phone: [facility] Start: 09-02-2018 End: 09-02-2018 Annotation/Addendum Jocelin Saunders [facility] Start: 09-02-2018 End: 09-02-2018 Jocelin Saunders DO Work Phone: [facility] Start: 08-26-2018 End: 08-26-2018 Annotation/Addendum Jocelin Saunders [facility] Start: 08-26-2018 End: 08-26-2018 Jocelin Saunders DO Work Phone: [facility] Start: 08-26-2018 End: 08-26-2018 Office outpatient new 60 minutes Jocelin Saunders [facility] Start: 08-02-2018 Patient encounter procedure JANNETH Wisdom (SEARCH MANAGER-C) [facility] Patient encounter procedure Víctor Barton VACUUM CASTER [facility]; [facility] Work Phone: Preoperative state Jocelin Lopes [facility] Internal Medicine Work Phone: Comment on above: dr thompson Preoperative state Jocelin Lopes [facility] Internal Medicine Work Phone: Comment on above: dr thompson Preoperative state Jocelin Lopes [facility] Internal Medicine Work Phone: Comment on above: dr thompson Preoperative state Jocelin Lopes [facility] Internal Medicine Work Phone: Comment on above: dr thompson Preoperative state Jocelin Lopes [facility] Internal Medicine Work Phone: Comment on above: dr thompson Preoperative state Jocelin Puja Lopes [facility] Internal Medicine Work Phone: Comment on above: dr thompson End: 04-13-2019 Preoperative state Talia Nguyen RN [facility]; [facility] Work Phone: Comment on above: dr thompson Procedures Date Procedure Procedure Detail Performing Clinician Start: 04-22-[address] Darek Saunders DO Work Phone: Start: 04-22-[address] Jocelin Saunders DO Work Phone: Comment on above: Test Ordered: [id number] BCR-ABL1, CML/ALL, PCR, Fggocb77i6 (b2a2) transcript <0.0032 % LUU Reference Range: [...] LUU Reference Range: .Technical Component performed at [facility] RTPProfessional Component performed by:Yaquelin Mckeon, PhD, FACMGDirector, [facility] OncologyBayridge Hospital RTPYWYUD5, [address] [facility] [phone] Comment LUU Reference Range: .This assay can detect three different types of BCR-FDO2dszizb transcripts associated with CML, ALL, and AML: [...] PCR primers and probes are specific for BCR-DKD1j67h6, e14a2 and e1a2 fusion transcripts. The DKB7kzwklxcqcx is amplified as the control for cDNA quantityand quality. Serial dilutions of a validated positivecontrol RNA with known t(9;22) BCR-ABL1 are used asreference for quantification of BCR-ABL1 relative toABL1. The numeric BCR-ABL1 level is reported as % BCR-ABL1/ABL1 and the detection sensitivity is 4.5 log belowthe standard baseline (<0.0032%).This test was developed and its performance characteristicsdetermined by [facility]. It has not been cleared or [...] for quantitationof BCR-ABL mRNA. Blood. 2010 25; 116(22):z694-805.Performed at: [facility] [id number] [place], [place] [id number] Director: Sherri Davey [facility], Phone: [phone] at: - [facility] [address], [place], [place] [id number] Director: Sherri Davey [facility], Phone: [phone] at: [facility] [place], [place] [id number] Director: Michael Ragsdale PhD, Phone: [phone] Start: 01-21-[address] Darek Saunders DO Work Phone: Start: 01-21-[address] Jocelin Saunders DO Work Phone: Comment on above: Test Ordered: [id number] BCR-ABL1, CML/ALL, PCR, Klepqn90s8 (b2a2) transcript <0.0032 % % Reference Range: .e14a2 (b3a2) transcript <0.0032 % % Reference Range: .e1a2 transcript <0.0032 % % Reference Range: .Interpretation: Negative Reference Range: .NEGATIVE for the BCR-ABL1 e1a2 (p190), e13a2 (b2a2, p210)and e14a2 (b3a2, p210) fusion transcripts. These results donot rule out the presence of rare BCR-ABL1 transcripts notdetected by this assay.Director Review Comment Reference Range: .Technical Component performed at [facility] RTPProfessional Component performed by:Dayan Davila, PhD, FACMGDirector, Molecular OncologyLab[facility] RTPLCYUD1, [address] [facility] [phone] Comment LUU Reference Range: .This assay can detect three different types of BCR-CLU4vhovik transcripts associated with CML, ALL, and AML: [...] PCR primers and probes are specific for BCR-UFK5k42r6, e14a2 and e1a2 fusion transcripts. The BRS7kryaepxane is amplified as the control for cDNA quantityand quality. Serial dilutions of a validated positivecontrol RNA with known t(9;22) BCR-ABL1 are used asreference for quantification of BCR-ABL1 relative toABL1. The numeric BCR-ABL1 level is reported as % BCR-ABL1/ABL1 and the detection sensitivity is 4.5 log belowthe standard baseline (<0.0032%).This test was developed and its performance characteristicsdetermined by [facility]. It has not been cleared or approvedby [...] for quantitationof BCR-ABL mRNA. Blood. 2010 25; 116(22):s748-913.Performed at: [facility] [id number] [employer] [facility], [facility], [place] [id number] Director: Sherri Davey [facility], Phone: [phone] at: [facility] [id number] [place], [place] [id number] Director: Sherri Davey [facility], Phone: [phone] at: [address] [id number] Director: Michael Ragsdale PhD, Phone: [phone] Start: 01-21-2025 Serum inorganic phosphate measurement Dr. Jocelin Saunders DO Work Phone: Start: 10-22-[address] Darek Saunders DO Work Phone: Start: 07-28-2024 CBC AND ELECTRONIC DIFF Shinal D Maynard TRAINING TECHNICIAN-SHEETER OPERATOR Work Phone: Start: 07-28-2024 Complete blood count with white cell differential, automated Shinal D Maynard TRAINING TECHNICIAN-SHEETER OPERATOR Work Phone: Start: 07-28-2024 Comprehensive metabolic panel Shinal D P atel TRAINING TECHNICIAN-SHEETER OPERATOR Work Phone: Start: 07-20-2024 Measurement of [...] End: 02-06-2023 Procedure Note: See Note; NOTES: [facility] [place] [address] OFFICE VISIT Date of Service: 02/06/23 1113 MR#: [id number] Acct: [id number] Name: FREDERIC OVALLES Rep #: [id number] : 1960 From: Sawyer Delgado MD Age/Sex: 62/M Location: [facility] Status: Signed HPI Subjective Date of Service [...] and megakaryocytes. 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 Bosutinib August 10, 2022-ongoing MMR (January 2023) 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 Encounter for screening [...] use well-balanced diet: about half the time uyen/uatsdin: Druze seatbelt use: always do you feel safe [...] impression and plan discussed. Sawyer Delgado MD Pony Ride Attendant, [facility] Divisions of Medical Oncology Hematology Department of Internal Medicine [place] [address] This note was generated using a voice [...] End: 01-24-2023 Procedure Note: See Note; NOTES: [facility] Imaging Services [address] [place] [address] Chest PA and Lateral MR#: [id number] Acct: [id number] Name: FREDERIC OVALLES Rep #: [id number] : 1960 M 62 From: Joann Gutierrez MD PCP: Dr. Jocelin Saunders DO Status: REG RCR Study: Chest PA and Lateral Date of Exam: 01/23/23 Exam# [id number] Ordering Dr: Sawyer Delgado MD EXAM: XR [...] 5:59 EDT Reading Location ID and State: [address] [place] [address] Tel , Service support , CC: Dr. Jocelin Saunders DO; Dr. Sawyer Delgado MD Rivet Tosser: Signed Sawyer Delgado Work Phone: Start: 12-12-2022 End: 12-12-2022 Procedure Note: See Note; NOTES: [facility] [address] [place] [address] OFFICE VISIT Date of Service: 12/12/22 1331 MR#: [id number] Acct: [id number] Name: FREDERIC OVALLES Rep #: [id number] : 1960 From: Sawyer Delgado MD Age/Sex: 62/M Location: [facility] Status: Signed HPI Subjective Date of [...] neoplasm. The flow cytometry analysis report from [facility] is reviewable in the patient???s EMR. BONE [...] and megakaryocytes. 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 Bosutinib August 10, 2022-. 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 Lawton for possible evolving Dasatinib [...] impression and plan discussed. Sawyer Delgado MD Pony Ride Attendant, [facility] Divisions of Medical Oncology Hematology Department of Internal Medicine [place] [address] This note was generated using a voice [...] End: 11-15-2022 Procedure Note: See Note; NOTES: [facility] Imaging Services [address] [place] [address] L/S Spine Min 4 Views MR#: [id number] Acct: [id number] Name: FREDERIC OVALLES Rep #: [id number] : 1960 M 62 From: Jerome Byrd MD PCP: Dr. Jocelin Saunders DO Status: REG RCR Study: L/S Spine Min 4 Views Date of Exam: 11/15/22 Exam# [id number] Ordering Dr: Savi Rodriguez NP RESP THERAPIST -C INDICATION: low back pain acute EXAMINATION/TECHNIQUE: [...] MD, SHIRA at 19:15 EDT , CC: RESP THERAPIST-C Savi Rodriguez; Dr. Jocelin Saunders DO Rivet Tosser: Signed Jocelin Saunders DO Work Phone: Start: 11-15-2022 Plain x-ray of pelvis and lower extremity Dr. Jocelin Saunders Work Phone: Start: 11-15-2022 End: 11-15-2022 Procedure Note: See Note; NOTES: [facility] Imaging Services [address] [place] [address] HIP, UNI W/ Pelvis 2-3 Views MR#: [id number] Acct: [id number] Name: FREDERIC OVALLES Rep #: [id number] : 1960 M 62 From: Jerome Byrd MD PCP: Dr. Jocelin Saunders, Status: REG RCR Study: HIP, UNI W/ Pelvis 2-3 Views Date of Exam: Exam# [id number] Ordering Dr: Savi Rodriguez NP RESP THERAPIST -C INDICATION: low back and left hip [...] 19:14 EDT Reading Location ID and State: [facility] / [place] Tel , Service support , CC: SELVIN Rodriguez; Dr. Jocelin Saunders DO Rivet Tosser: Signed Jocelin Saunders DO Work Phone: Start: 11-15-2022 End: 11-15-2022 Procedure Note: See Note; NOTES: [facility] [address] [place] [address] OFFICE VISIT Date of Service: 11/15/22813 MR#: [id number] Acct: [id number] Name: FREDERIC OVALLES Rep #: [id number] : 1960 From: Savi Akers Age/Sex: 62/M Location: [facility] Status: Signed HPI Subjective Date of [...] and megakaryocytes. 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 RESULTS: BCR/ABL1 Normal Nuclei Positive Nuclei with Dual Fusion 3.33% 96.67% CYTOGENETICS REPORT FROM [facility] INTERPRETATION: Abnormal male karyotype was observed in [...] as good, PO fluid intake as adequate. [facility] Medical History (Updated 11/15/22 @ 08:39 by Savi Rodriguez RESP THERAPIST, RESP THERAPIST-C) Atherosclerosis of coronary artery of southern [place] heart without angina pectoris Encounter for screening [...] use well-balanced diet: about half the time uyen/uatsdin: Druze seatbelt use: always do you feel safe [...] * June 2022 he was evaluated at [facility] by Dr. Lawton for possible evolving Dasatinib [...] 0846 <Electronically signed by Savi Rodriguez NP RESP THERAPIST-C> Date Savi Rodriguez NP RESP THERAPIST-C Cosigner Signature: Date (if applicable) CC: Dr. Jocelin Saunders, DO Jocelin Saunders DO Work Phone: Start: 10-22-2022 End: 10-22-2022 Procedure Note: See Note; NOTES: [facility] 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 Jocelin Saunders, DO Jocelin Saunders DO Work Phone: Start: 10-18-2022 End: 10-18-2022 Procedure Note: See Note; NOTES: [facility] [address] [address] OFFICE VISIT Date of Service: 10/18/22 0849 MR#: [id number] Acct: [id number] Name: MARTHAFREDERIC Rep #: [id number] : 1960 From: Sawyer Delgado MD Age/Sex: 62/M Location: [facility] Status: Signed HPI Subjective Date of Service [...] neoplasm. The flow cytometry analysis report from [facility] is reviewable in the patient???s EMR. BONE [...] and megakaryocytes. 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 Bosutinib August 10, 2022-. 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 Lawton for possible evolving Dasatinib [...] impression and plan discussed. Sawyer Delgado MD Pony Ride Attendant, [facility] Divisions of Medical Oncology Hematology Department of Internal Medicine [place] [address] This note was generated using a voice [...] Note; NOTES: [facility] Services [address] [place] [address] MR#: [id number] Acct: [id number] Name: FREDERIC OVALLES Rep #: [id number] : 1960 62 From: Hector Hsu MD [...] Saunders, Date Dictated: 10/18/22728 Date Transcribed: 10/18/22728 Rivet Tosser: [place] Signed Jocelin Saunders DO Work Phone: Start: 10-18-2022 Plain chest X-ray Dr. Jocelin Saunders Work Phone: Start: 10-18-2022 Radiologic exam chest [address] Saturnino Saunders DO Work Phone: Start: 10-18-2022 End: 10-18-2022 Procedure Note: See Note; NOTES: [facility] Imaging Services [address] [place] [address] Chest PA and Lateral MR#: [id number] Acct: [id number] Name: FREDERIC OVALLES Rep #: [id number] : 1960 M 62 From: Ryne Pena DO PCP: Dr. Jocelin Saunders DO Status: REG RCR Study: Chest PA and Lateral Date of Exam: 10/18/22 Exam# [id number] Ordering Dr: Sawyer Delgado MD INDICATION: F/U [...] 18:35 EDT Reading Location ID and State: [facility] [place] Tel [phone], Service support , CC: Dr. Jocelin Saunders DO; Dr. Sawyer Delgado MD Rivet Tosser: Signed Sawyer Delgado Work Phone: Start: 10-17-2022 Radionuclide imaging of perfusion of myocardium under exercise stress Dr. Jocelin Saunders Work Phone: Start: 10-05-2022 End: 10-05-2022 Procedure Note: See Note; NOTES: [facility] [address] [place] [address] OFFICE VISIT Date of Service: 10/05/22 MR#: [id number] Acct: [id number] Name: MARISAPATRICIAFREDERIC Rep #: [id number] : 1960 Provider: Dr. Hector Hsu MD Age/Sex: 62/M Location: [facility] Status: Signed [facility] History of Present Illness Details: This [...] air Intake Visit Reasons: 6 m fu Promotions Assistant Sales Marketing Required: No Is patient in pain?: No [...] Medical History Atherosclerosis of coronary artery of southern [place] heart without angina pectoris Encounter for screening [...] use well-balanced diet: about half the time uyen/uatsdin: Druze seatbelt use: always do you feel safe [...] Today I25.10 - Atherosclerotic heart disease of southern [place] coronary artery without angina pectoris Liver Profile Today I10 - Essential (primary) hypertension, Z95.5 - Presence of coronary angioplasty implant and graft Nuclear Stress Test - Treadmil Today I25.10 - Atherosclerotic heart disease of southern [place] coronary artery without angina pectoris Plan Details 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 The flow cytometry analysis report from [employer] is reviewable in the patient???s EMR. BONE [...] and megakaryocytes. 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 RESULTS: BCR/ABL1 Normal Nuclei Positive Nuclei with Dual Fusion 3.33% 96.67% CYTOGENETICS REPORT FROM [facility] INTERPRETATION: Abnormal male karyotype was observed in [...] as good, PO fluid intake as adequate. 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 Encounter for screening [...] use well-balanced diet: about half the time uyen/uatsdin: Druze seatbelt use: always do you feel safe [...] * June 2022 he was evaluated at [facility] by Dr. Lawton for possible evolving Dasatinib [...] End: 10-05-2022 Procedure Note: See Note; NOTES: [facility] Cardiovascular Services [address] [place] [address] 12 Lead EKG 10/04/22 0945 MR#: [id number] Acct: [id number] Name: FREDERIC OVALELS Rep #: [id number] : 1960 62 From: Luke Campbell MD Attending Dr: Dr. Sawyer Delgado MD Status: REG I Ordering Dr: Sawyer Delgado MD Date: 10/04/22 Location: [facility] Sex: M C Admitted: Test Reason : CHAIR MECHANIC MED Blood Pressure : / mmHG Vent. Rate : 061 BPM Atrial Rate : 061 BPM P-R Int : 156 ms QRS Dur : 094 ms QT Int : 398 ms P-R-T Axes : -08 -15 013 degrees QTc Int : 400 ms Normal sinus rhythm Normal ECG Confirmed by ELVI HICKS, ANI ([id number]), senior technical editor RULA VAZQUEZ ([id number]) on 10/05/2022 7:03:34 AM Referred By: Sawyer Delgado Confirmed By:BRYANT CAMPBELL MD 10/05/22 0703 Date Luke Campbell MD CC: Dr. Jocelin Saunders DO; Dr. Sawyer Delgado MD Signed Sawyer Delgado Work Phone: Start: 09-20-2022 End: 09-20-2022 Procedure Note: See Note; NOTES: [facility] [address] [address] OFFICE VISIT Date of Service: 09/20/22 1352 MR#: [id number] Acct: [id number] Name: FREDERIC OVALLES Rep #: [id number] : 1960 From: Sawyer Delgado MD Age/Sex: 62/M Location: [facility] Status: Signed HPI Subjective Date of Service [...] neoplasm. The flow cytometry analysis report from [facility] is reviewable in the patient???s EMR. BONE [...] and megakaryocytes. 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 Bosutinib August 10, 2022-. 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 Encounter for screening [...] use well-balanced diet: about half the time uyen/uatsdin: Druze seatbelt use: always do you feel safe [...] no focal motor deficits Coordination / Balance: mcuakx-ba-axmi test normal Speech: speech normal Gait (Neuro): [...] * June 2022 he was evaluated at [facility] by Dr. Lawton for possible evolving Dasatinib [...] impression and plan discussed. Sawyer Delgado MD Pony Ride Attendant, [facility] Divisions of Medical Oncology Hematology Department of Internal Medicine [facility] [place] [address] This note was generated using a voice [...] End: 09-06-2022 Procedure Note: See Note; NOTES: [facility] [place] [address] OFFICE VISIT Date of Service: 09/06/22 1049 MR#: [id number] Acct: [id number] Name: FREDERIC OVALLES Rep #: [id number] : 1960 From: Savi Rodriguez NP RESP THERAPIST -C Age/Sex: 62/M Location: [facility] [place] Status: Signed HPI Subjective Date of [...] and megakaryocytes. 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 RESULTS: BCR/ABL1 Normal Nuclei Positive Nuclei with Dual Fusion 3.33% 96.67% CYTOGENETICS REPORT FROM [facility] INTERPRETATION: Abnormal male karyotype was observed in [...] as good, PO fluid intake as adequate. 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 Encounter for screening [...] use well-balanced diet: about half the time uyen/uatsdin: Druze seatbelt use: always do you feel safe [...] Bilateral pleural effusion: Status: Inactive Medications: New vgoyksnyond-auuhuzoks-mukyauev 100-62.5-25 mcg (Trelegy Ellipta) 1 inh inhalation [...] tap. June 2022 he was evaluated at [facility] by Dr. Lawton for possible evolving Dasatinib [...] End: 08-30-2022 Procedure Note: See Note; NOTES: [facility] [place] [address] OFFICE VISIT Date of Service: 08/30/22 1254 MR#: [id number] Acct: [id number] Name: FREDERIC OVALLES Rep #: [id number] : 1960 From: Sawyer Delgado MD Age/Sex: 62/M Location: [facility] [place] Status: Signed HPI Subjective Date of [...] and megakaryocytes. 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 Bosutinib to August 10, 2022. [facility] Medical History (Updated 08/30/22 @ 13:[address] Sawyer Delgado MD) Atherosclerosis of coronary artery of southern ute heart without angina pectoris Encounter for screening [...] use well-balanced diet: about half the time uyen/uatsdin: Druze seatbelt use: always do you feel safe [...] no focal motor deficits Coordination / Balance: zxdamc-if-otlj test normal Speech: speech normal Gait (Neuro): [...] tap. June 2022 he was evaluated at [facility] by Dr. Lawton for possible evolving Dasatinib [...] impression and plan discussed. Sawyer Delgado MD Pony Ride Attendant, [facility] Divisions of Medical Oncology Hematology Department of Internal Medicine [facility] [place] [phone] This note was generated using a voice [...] End: 08-31-2022 Procedure Note: See Note; NOTES: [facility] Cardiovascular Services [address] [place] [address] 12 Lead EKG 08/30/22 1158 MR#: [id number] Acct: [id number] Name: FREDERIC OVALLES Rep #: [id number] : 1960 62 From: Luke Campbell MD Attending Dr: Dr. Sawyer Delgado MD Status: REG CLI Ordering Dr: Sawyer Delgado MD Date: 08/30/22 Location: [facility] Sex: M C Admitted: Test Reason : THERAPUTIC DRUG LEVE Blood Pressure : / mmHG Vent. Rate : 066 BPM Atrial Rate : 066 BPM P-R Int : 166 ms QRS Dur : 098 ms QT Int : 392 ms P-R-T Axes : 012 -11 017 degrees QTc Int : 410 ms Normal sinus rhythm Normal ECG Confirmed by ELVI HICKS, ANI ([id number]), senior technical editor RULA VAZQUEZ ([id number]) on 08/31/2022 12:59:19 PM Referred By: DANNY Confirmed By:BRYANT CAMPBELL MD 08/31/22 1259 Date Luke Campbell MD CC: Dr. Jocelin Saunders DO; Dr. Sawyer Delgado MD Signed Sawyer Delgado Work Phone: Start: 08-23-2022 End: 08-23-2022 Procedure Note: See Note; NOTES: [facility] [address] [address] OFFICE VISIT Date of Service: 08/23/22 1043 MR#: [id number] Acct: [id number] Name: FREDERIC OVALLES Rep #: [id number] : 1960 From: Savi Rodriguez NP RESP THERAPIST -C Age/Sex: 62/M Location: [facility] Status: Signed HPI Subjective Date of Service [...] neoplasm. The flow cytometry analysis report from [facility] is reviewable in the patient???s EMR. BONE [...] and megakaryocytes. 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 RESULTS: BCR/ABL1 Normal Nuclei Positive Nuclei with Dual Fusion 3.33% 96.67% CYTOGENETICS REPORT FROM [facility] INTERPRETATION: Abnormal male karyotype was observed in [...] a day, well controlled with the loperamide. [place] foods exacerbate diarrhea. Has been experiencing frontal headaches, predates Bosilif. States the headaches seem to be better, less often and less severe. Appetite good, PO fluid intake likely adequate. Specifically denies fever/chills, sweats, dizziness, CP, palpitations, abd pain, swelling/pain of his extremities, overt bleeding/abnormal bruising. Exertional dyspnea unchanged. Met with pulmonology, Dr. Brooks last week and inhaled medications changed. 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 Encounter for screening [...] use well-balanced diet: about half the time uyen/uatsdin: Druze seatbelt use: always do you feel safe [...] tap. June 2022 he was evaluated at [facility] by Dr. Lawton for possible evolving Dasatinib [...] DO Jocelin Wiseman DO Work Phone: Start: 08-20-2022 End: 08-20-2022 Procedure Note: See Note; NOTES: [facility] Pulmonary Medicine of [address] [place] [address] OFFICE VISIT Date of Service: 08/20/22 MR#: [id number] Acct: [id number] Name: FREDERIC OVALLES Alyx Rep #: [id number] : 1960 Provider: Dr. John Brooks DO Age/Sex: 62/M Location: [facility] [place] Status: Signed Assessment and Plan Assessment and [...] may require an additional thoracentesis. Medications: New fajnmeieakj-mhsvvykaf-crahgkff 100-62.5-25 mcg (Trelegy Ellipta) 1 inh inhalation [...] effusion. The patient does have an approximate 18-aloc-aroo smoking history and continues to smoke 0.25 [...] Medical History Atherosclerosis of coronary artery of southern ute heart without angina pectoris Encounter for screening [...] use well-balanced diet: about half the time uyen/uatsdin: Druze seatbelt use: always do you feel safe [...] End: 08-17-2022 Procedure Note: See Note; NOTES: [facility] Imaging Services [address] [place] [address] Chest PA and Lateral MR#: [id number] Acct: [id number] Name: FREDERIC OVALLES Rep #: [id number] : 1960 M 62 From: Chalino Quiles PCP: Dr. Jocelin Saunders DO Status: REG CLI Study: Chest PA and Lateral Date of Exam: 08/16/22 Exam# [id number] Ordering Dr: Sawyer Delgado MD EXAM: XR CHEST, 2 VIEWS CLINICAL INDICATION: F/U PLEURAL EFFUSION TECHNIQUE: Frontal and lateral views of the chest. This report was created using [employer] report generation technology. COMPARISON: 08/08/2022 and 07/03/2022. [...] Jocelin Saunders DO; Dr. Sawyer Delgado MD Rivet Tosser: Signed Sawyer Delgado Work Phone: Start: 08-16-2022 End: 08-17-2022 Procedure Note: See Note; NOTES: [facility] Cardiovascular Services [address] [place] [address] 12 Lead EKG 08/16/22 1401 MR#: [id number] Acct: [id number] Name: FREDERIC OVALLES Rep #: [id number] : 1960 62 From: Hector Hsu MD Attending Dr: Dr. Sawyer Delgado MD Status: REG CLI Ordering Dr: Sawyer Delgaod MD Date: 08/16/22 Location: [facility] Sex: M C Admitted: Test Reason : ROUTINE Blood Pressure : / mmHG Vent. Rate : 069 BPM Atrial Rate : 069 BPM P-R Int : 158 ms QRS Dur : 090 ms QT Int : 386 ms P-R-T Axes : 023 -17 -05 degrees QTc Int : 413 ms Normal sinus rhythm Normal ECG Confirmed by HECTOR HSU MD ([id number]), senior technical editor RULA VAZQUEZ ([id number]) on 08/17/2022 12:55:11 PM Referred By: Sawyer Delgado Confirmed By:HECTOR HSU MD 08/17/22 1255 Date Hector Hsu MD CC: Dr. Jocelin Saunders, ; Dr. Sawyer Delgado MD Signed Sawyer Delgado Work Phone: Start: 08-16-2022 End: 08-16-2022 Procedure Note: See Note; NOTES: [facility] [address] [address] OFFICE VISIT Date of Service: 08/16/22 1301 MR#: [id number] Acct: [id number] Name: FREDERIC OVALLES Rep #: [id number] : 1960 From: Sawyer Delgado MD Age/Sex: 62/M Location: [facility] [place] Status: Signed HPI [facility] Date of Service 08/16/22 Chief Complaint Chronic [...] and megakaryocytes. 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 Bosutinib to August 10, 2022. 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 Encounter for screening [...] use well-balanced diet: about half the time uyen/uatsdin: Druze seatbelt use: always do you feel safe [...] no focal motor deficits Coordination / Balance: eovbuu-wk-otcx test normal Speech: speech normal Gait (Neuro): [...] therapeutic drug level monitoring, Z79.899 - Other ferry terminal agent (current) drug therapy Comprehensive Metabolic Profil 09/20/22 [...] tap. June 2022 he was evaluated at [facility] by Dr. Lawton for possible evolving Dasatinib [...] impression and plan discussed. Sawyer Delgado MD Pony Ride Attendant, [facility] Divisions of Medical Oncology Hematology Department of Internal Medicine [place] [phone] This note was generated using a voice [...] End: 08-13-2022 Procedure Note: See Note; NOTES: [facility] [place] [address] OFFICE VISIT Date of Service: 08/09/221442 MR#: [id number] Acct: [id number] Name: FREDERIC OVALLES Rep #: [id number] : 1960 From: Savi Rodriguez NP RESP THERAPIST -C Age/Sex: 62/M Location: [facility] Status: Signed HPI Subjective Date of Service [...] neoplasm. The flow cytometry analysis report from [employer] is reviewable in the patient???s EMR. BONE [...] and megakaryocytes. 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 RESULTS: BCR/ABL1 Normal Nuclei Positive Nuclei with Dual Fusion 3.33% 96.67% CYTOGENETICS REPORT FROM [facility] INTERPRETATION: Abnormal male karyotype was observed in [...] otherwise he has no outstanding physical complaints. 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10 - Chronic myeloid leukemia, BCR/ABL-positive, not having achieved remission, Z79.899 - Other longterm (current) drug therapy Retic Panel Count 08/23/22 C92.10 - Chronic myeloid leukemia, BCR/ABL-positive, not having achieved remission, Z79.899 - Other ferry terminal agent (current) drug therapy Comprehensive Metabolic Profil 08/30/22 C92.10 - Chronic myeloid leukemia, BCR/ABL-positive, not having achieved remission, Z79.899 - Other ferry terminal agent (current) drug therapy CBC W/Diff, Automated 08/30/22 C92.10 - Chronic myeloid leukemia, BCR/ABL-positive, not having achieved remission, Z79.899 - Other ferry terminal agent (current) drug therapy Retic Panel Count 08/30/22 C92.10 - Chronic myeloid leukemia, BCR/ABL-positive, not having achieved remission, Z79.899 - Other longterm (current) drug therapy Comprehensive Metabolic Profil 09/06/22 C92.10 - Chronic myeloid leukemia, BCR/ABL-positive, not having achieved remission, Z79.899 - Other ferry terminal agent (current) drug therapy CBC W/Diff, Automated 09/06/22 C92.10 - Chronic myeloid leukemia, BCR/ABL-positive, not having achieved remission, Z79.899 - Other ferry terminal agent (current) drug therapy Retic Panel Count 09/06/22 C92.10 - Chronic myeloid leukemia, BCR/ABL-positive, not having achieved remission, Z79.899 - Other ferry terminal agent (current) drug therapy Medications: Discontinued benzonatate (Tessalon [...] tap. June 2022 he was evaluated at [facility] by Dr. Lawton for possible evolving Dasatinib [...] to proceed. Patient is presently working with [facility] patient assistance program to coordinate acquisition [...] End: 08-09-2022 Procedure Note: See Note; NOTES: [facility] Pulmonary Services/Neurology [address] [place] [address] MR#: [id number] Acct: [id number] Name: FREDERIC OVALLES Rep #: [id number] : 1960 62 From: Gallito Malcolm MD Referring Dr: Status: REG CLI Location: PSN Date: Sex: M C PSN 6 Minute Walk Test 6 Minute Walk Test 6 Minute Walk Test: 6 Minute Walk Test PSN:6-Minute Walk Test Start: 08/09/22 08:25 Freq: Status: Active Protocol: RESP.6MINW Document 08/09/22 08:15 [facility] (Rec: 08/09/22 08:28 [facility] [id number]) 6 Minute Walk Test Date Performed 08/09/22 [...] Date Dictated: 08/09/22 143 Date Transcribed: 08/09/221438 Rivet Tosser: Dr. Gallito Malcolm MD Signed Jocelin Saunders DO Work Phone: Start: 08-08-2022 Plain chest X-ray Dr. Jocelin Saunders Work Phone: Start: 08-08-2022 End: 08-08-2022 Procedure Note: See Note; NOTES: [facility] Imaging Services [address] [place] [address] Chest PA and Lateral MR#: [id number] Acct: [id number] Name: FREDERIC OVALLES Rep #: [id number] : 1960 M 62 From: Ari Quiles PCP: Dr. Jocelin Saunders DO Status: REG CLI Study: Chest PA and Lateral Date of Exam: 08/08/22 Exam# [id number] Ordering Dr: Sawyer Delgado MD INDICATION: F/U [...] Jocelin Saunders DO; Dr. Sawyer Delgado MD Rivet Tosser: Signed Sawyer Delgado Work Phone: Start: 08-08-2022 End: 08-09-2022 Procedure Note: See Note; NOTES: [facility] Cardiovascular Services [address] [place] [address] 12 Lead EKG 08/08/22 1609 MR#: [id number] Acct: [id number] Name: FREDERIC OVALLES Rep #: [id number] : 1960 62 From: Hector Hsu MD Attending Dr: Dr. Sawyer Delgado MD Status: REG [facility] Ordering Dr: Sawyer Delgado MD Date: 08/08/22 Location: [facility] Sex: M C Admitted: Test Reason : [...] Abnormal ECG Confirmed by HECTOR HSU MD ([id number]), senior technical editor RULA VAZQUEZ ([id number]) on 08/09/2022 8:32:27 AM Referred By: Sawyer Delgado Confirmed By:HECTOR HSU MD 08/09/22 0832 Date Hector Hsu MD CC: Dr. Jocelin Saunders, DO; Dr. Sawyer Delgado MD Signed Sawyer Delgado Work Phone: Start: 08-08-2022 End: 08-08-2022 Procedure Note: See Note; NOTES: [facility] [address] [place] [address] OFFICE VISIT Date of Service: 08/08/22 1419 MR#: [id number] Acct: [id number] Name: FREDERIC OVALLES Rep #: [id number] : 1960 From: Sawyer Delgado MD Age/Sex: 62/M Location: [facility] Status: Signed HPI Subjective Date of Service [...] neoplasm. The flow cytometry analysis report from [facility] is reviewable in the patient???s EMR. BONE [...] and megakaryocytes. 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 RESULTS: BCR/ABL1 Normal Nuclei Positive Nuclei with Dual Fusion 3.33% 96.67% CYTOGENETICS REPORT FROM [facility] INTERPRETATION: Abnormal male karyotype was observed in twenty metaphases analyzed. 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 Bosutinib to start July 2022. 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 June 2022 he was evaluated at [facility] by Dr. Lawton for possible evolving Dasatinib [...] impression and plan discussed. Sawyer Delgado MD Pony Ride Attendant, [facility] Divisions of Medical Oncology Hematology Department of Internal Medicine [facility] [place] [address] This note was generated using a voice recognition system software. Although it was reviewed by the author prior to finalization, it may still contain incorrect words, spelling, and punctuation that were not noted when reviewing prior to saving. If a clinically significant typo or inaccurately typed phrase is noted, please notify the author. 08/08/22 5555 <Electronically signed by Sawyer Delgado MD> Date Sawyer Delgado MD Cosigner Signature: Date (if applicable) CC: MD Jocelin Canela DO Work Phone: Start: 08-06-2022 End: 08-06-2022 Procedure Note: See Note; NOTES: [facility] Pulmonary Services/Neurology [address] [place] [address] MR#: [id number] Acct: [id number] Name: FREDERIC OVALLES Rep #: [id number] : 1960 62 From: Gallito Malcolm MD Referring Dr: Status: REG [facility] Location: [facility] Date: 08/06/22 Sex: M C COMPLETE PULMONARY FUNCTION TEST INTERPRETATION Brief HPI: Patient is a 62-year-old male, currently under the care of Dr. Brooks, who presents to [facility] for complete pulmonary function tests secondary [...] Dictated: 08/06/22 1018 Date Transcribed: 08/06/22 1018 Rivet Tosser: MADAY Signed Jocelin Saunders DO Work Phone: Start: 07-09-2022 End: 07-09-2022 Procedure Note: See Note; NOTES: [facility] [place] [address] [place] [address]. [address] [place] [address] OFFICE VISIT Date of Service: 07/09/22 MR#: [id number] Acct: [id number] Name: FREDERIC OVALLES Rep #: [id number] : 1960 Provider: Dr. John Brooks DO Age/Sex: 62/M Location: [facility] [place] Status: Signed Assessment and Plan [...] effusion. The patient does have an approximate 10-mnid-fykd smoking history and continues to smoke 0.25 packs of cigarettes per day. In addition, he did grow up in a smoking household. He was previously employed working in a [employer] setting. 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 [address] OFFICE VISIT Date of Service: 07/04/22 1127 MR#: [id number] Acct: [id number] Name: FREDERIC OVALLES Rep #: [id number] : 1960 From: Sawyer Delgado MD Age/Sex: 62/M Location: [facility] [place] Status: Signed HPI Subjective Date of [...] and megakaryocytes. 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 RESULTS: BCR/ABL1 Normal Nuclei Positive Nuclei with Dual Fusion 3.33% 96.67% CYTOGENETICS REPORT FROM [facility] INTERPRETATION: Abnormal male karyotype was observed in twenty metaphases analyzed. 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 Sawyer Delgado MD Pony Ride Attendant, [facility] Divisions of Medical Oncology Hematology Department of Internal Medicine [place] [phone] This note was generated using a voice [...] End: 07-03-2022 Procedure Note: See Note; NOTES: [facility] Imaging Services [address] [place], [place] [address] Chest PA and Lateral MR#: [id number] Acct: [id number] Name: FREDERIC OVALLES Rep #: [id number] : 1960 M 62 From: Jeovanny medeiros MD PCP: Dr. Jocelin Saunders DO Status: REG CLI Study: Chest PA and Lateral Date of Exam: 07/03/22 Exam# [id number] Ordering Dr: Sawyer Delgado MD STUDY: X-RAY [...] 11:09 EST Reading Location ID and State: [address] [place] [address] , Service support , CC: Dr. Jocelin Saunders DO; Dr. Sawyer Delgado MD Rivet Tosser: Signed Sawyer Delgado Work Phone: Start: 06-11-2022 End: 06-11-2022 Procedure Note: See Note; NOTES: [facility] [address] [place] [address] OFFICE VISIT Date of Service: 06/11/22 1259 MR#: [id number] Acct: [id number] Name: FREDERIC OVALLES Rep #: [id number] : 1960 From: Sawyer Delgado MD Age/Sex: 61/M Location: [facility] [place] [facility] Status: Signed HPI Subjective Date of [...] neoplasm. The flow cytometry analysis report from [facility] is reviewable in the patient???s EMR. BONE [...] and megakaryocytes. 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 RESULTS: BCR/ABL1 Normal Nuclei Positive Nuclei with Dual Fusion 3.33% 96.67% CYTOGENETICS REPORT FROM [facility] INTERPRETATION: Abnormal male karyotype was observed in twenty metaphases analyzed. 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 Then was seen at [facility] emergency room June 03, 2022 with increasing dyspnea and was found to have bilateral pleural effusions more on the right. After thoracocentesis June 04, 2022 feels back to normal. 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 Sawyer Delgado MD Pony Ride Attendant, [facility] Divisions of Medical Oncology Hematology Department of Internal Medicine [place] [address] This note was generated using a voice [...] 2 View Procedure Note: See Note; NOTES: [facility] Imaging Services [address] [place] [address] Chest Insp/Exp 2 View MR#: [id number] Acct: [id number] Name: FREDERIC OVALLES Rep #: [id number] : 1960 61 From: Jeovanny medeiros MD PCP: Dr. Jocelin Saunders DO Status: REG ER Study: Chest Insp/Exp 2 View Date of Exam: 06/04/22 Exam# [id number] Ordering Dr: Jeovanny Swan STUDY: X-RAY CHEST [...] Jeovanny Swan MD; Dr. Jocelin Saunders DO Rivet Tosser: Signed Jocelin Saunders DO Work Phone: Start: 06-04-2022 Plain chest X-ray Dr. Jocelin Saunders Work Phone: Start: 06-04-2022 End: 06-04-2022 Emergency Department Summary Procedure Note: See Note; NOTES: [facility] Medical Records Department [address] [place] [address] Emergency Department Summary 06/04/22 MR#: [id number] Acct: [id number] Name: FREDERIC OVALLES Rep #: [id number] : 1960 61 From: Hermes Kent MD [...] him too. He denies any new symptoms. 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 Call [facility] ([phone]) or report to the closest Emergency Room. Call 911 if necessary. 06/04/22 1520 <Electronically signed by Hermes Kent MD> Cosigner Signature (if applicable): CC: Dr. John Brooks DO; Dr. Jocelin Saunders DO; Dr. Sawyer Delgado MD Signed Jocelin Saunders DO Work Phone: Start: 06-04-2022 End: 06-04-2022 Thoracentesis W US Procedure Note: See Note; NOTES: [facility] Imaging Services [address] [place] [address] Thoracentesis W US MR#: [id number] Acct: [id number] Name: FREDERIC OVALLES Alyx Rep #: [id number] : 1960 M 61 From: Jeovanny medeiros MD PCP: Dr. Jocelin Saunders DO Status: REG ER Study: Thoracentesis W US Date of Exam: 06/04/22 Exam# [id number] Ordering Dr: Hermes Kent MD PROCEDURE: ULTRASOUND [...] local anesthesia. Under ultrasound guidance, a 5 Cuban thoracentesis needle/catheter system was advanced into the [...] 11:08 EST Reading Location ID and State: [address] [place] [address] , Service support , CC: Dr. Hermes Kent MD; Dr. Jocelin Saunders DO Rivet Tosser: Signed Jocelin Saunders DO Work Phone: Start: 06-04-2022 Ultrasonic guidance for thoracentesis Dr. Jocelin Saunders Work Phone: Start: 06-03-2022 End: 06-05-2022 Procedure Note: See Note; NOTES: [facility] Cardiovascular Services [address] [place] [address] 12 Lead EKG 06/03/22 0847 MR#: [id number] Acct: [id number] Name: FREDERIC OVALLES Rep #: [id number] : 1960 61 From: Hector Hsu MD [...] Borderline ECG Confirmed by SHADI HICKS, HECTOR ([id number]), senior technical editor RULA VAZQUEZ ([id number]) on 06/05/2022 11:17:22 AM Referred By: Confirmed By:HECTOR HSU MD 06/05/221116 Date Hector Hsu MD CC: Dr. Hermes Kent MD; Dr. Jocelin Saunders DO Signed Jocelin Saunders DO Work Phone: Start: 06-03-2022 End: 06-03-2022 Emergency Department Summary Procedure Note: See Note; NOTES: [facility] Medical Records Department [address] [place] [address] Emergency Department Summary 06/03/22 MR#: [id number] Acct: [id number] Name: FREDERIC OVALLES Rep #: [id number] : 1960 61 From: Hermes Kent MD [...] dyspneic. He has a history of an MT remotely, he takes aspirin no other blood thinning medications, and he does not have a history of chronic lung disease although he continues to smoke. 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 Encounter for screening [...] use well-balanced diet: about half the time uyen/uatsdin: Druze seatbelt use: always do you feel safe [...] 70.8 H Lymph % (Auto) 13.6 L Dallas % (Auto) 10.1 H Eos % (Auto) [...] Color Urine Clarity Urine pH Ur Specific Panther Burn Urine Protein Urine Glucose (UA) Urine Ketones Urine Occult Blood Urine Nitrite Urine Bilirubin Urine Urobilinogen Ur Leukocyte Esterase Urine RBC Urine WBC Ur Squamous Epith Cells Urine Bacteria Urine Mucus 06/03/22 06/03/22 08:51 09:14 WBC RBC Hgb Hct MCV MCH MCHC RDW Std Deviation RDW Coeff of Zayra Plt Count MPV Immature Gran % (Auto) Neut % (Auto) Lymph % (Auto) Dallas % (Auto) Eos % (Auto) Baso % (Auto) Absolute Neuts (auto) Absolute Lymphs (auto) Nucleated RBC % Sodium Potassium Chloride Carbon Dioxide Anion Gap BUN Creatinine Estim Creat Clear Calc Est GFR (MDRD) Af Amer Est GFR (MDRD) Non-Af BUN/Creatinine Ratio Glucose Lactic Acid 1.3 Calcium Troponin I High Sens B-Natriuretic Peptide Urine Color Yellow Urine Clarity Clear Urine pH 7.0 Ur Specific Panther Burn 1.010 Urine Protein 15 H Urine Glucose [...] PRN (Reason: Nausea/Emesis) Qty: 30 6RF omega 5-efk-vax-fish oil 500 MG capsule,delayed release(DR/EC) 1 cap [...] your Primary Care Provider. Call [facility] ([phone]) or report to the closest Emergency Room. Call 911 if necessary. 06/03/22 1600 <Electronically signed by Hermes Kent MD> Ivone Signature (if applicable): CC: Dr. Jocelin Saunders DO Signed Jocelin Saunders DO Work Phone: Start: 06-03-2022 End: 06-03-2022 Abdomen/Pelvis W IV Cont ONLY Procedure Note: See Note ; NOTES: [facility] Imaging Services [address] [place] [address] Abdomen/Pelvis W IV Cont ONLY MR#: [id number] Acct: [id number] Name: FREDERIC OVALLES Rep #: [id number] : 1960 M 61 From: Ezra jiang MD PCP: Dr. Jocelin Saunders, DO Status: REG ER Study: Abdomen/Pelvis W IV Cont ONLY Date of Exam: Exam# [id number] Ordering Dr: Hermes Kent MD STUDY: CT ABDOMEN AND PELVIS WITH CONTRAST REASON FOR EXAM: Male, 61 years old. 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 Hermes Kent MD; Dr. Jocelin Saunders DO Rivet Tosser: Signed Jocelin Saunders DO Work Phone: Start: 06-03-2022 Computed tomography of abdomen and pelvis with intravenous contrast Dr. Jocelin Saunders Work Phone: Start: 06-03-2022 CT angiography of chest with contrast Dr. Jocelin Saunders Work Phone: Start: 06-03-2022 End: 06-03-2022 CTA Chest W/WO Contrast Procedure Note: See Note; NOTES: [facility] Imaging Services [address] [place] [address] CTA Chest W/WO Contrast MR#: [id number] Acct: [id number] Name: FREDERIC OVALLES Rep #: [id number] : 1960 M 61 From: Ezra jiang MD PCP: Dr. Jocelin Saunders, Status: REG ER Study: CTA Chest W/WO Contrast Date of Exam: 06/03/22 Exam# [id number] Ordering Dr: Hermes Kent MD STUDY: CTA CHEST REASON FOR EXAM: Male, 61 years old. 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 Jocelin Saunders DO Rivet Tosser: Signed Jocelin Saunders DO Work Phone: Start: 04-04-2022 End: 04-04-2022 Oncology Visit Report Procedure Note: See Note; NOTES: [facility] [address] [place] [address] OFFICE VISIT Date of Service: 04/04/22 1039 MR#: [id number] Acct: [id number] Name: FREDERIC OVALLES Rep #: [id number] : 1960 From: Sawyer Delgado MD Age/Sex: 61/M Location: [facility] [place] Status: Signed HPI Subjective Date of [...] and megakaryocytes. 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 RESULTS: BCR/ABL1 Normal Nuclei Positive Nuclei with Dual Fusion 3.33% 96.67% CYTOGENETICS REPORT FROM [facility] INTERPRETATION: Abnormal male karyotype was observed in twenty metaphases analyzed. 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 Sawyer Delgado MD Pony Ride Attendant, [facility] Divisions of Medical Oncology Hematology Department of Internal Medicine [facility] [place] [address] This note was generated using a voice recognition system software. Although it was reviewed by the author prior to finalization, it may still contain incorrect words, spelling, and punctuation that were not noted when reviewing prior to saving. If a clinically significant typo or inaccurately typed phrase is noted, please notify the author. 04/04/22 5653 <Electronically signed by Sawyer Delgado MD> Date [facility] Signature: Date (if applicable) CC: Dr. Jocelin Saunders, DO Jocelin Saunders DO Work Phone: Start: 02-09-2022 End: 02-09-2022 Cardiology Visit Report Comments: See Note; NOTES: [facility] [address] [place], [place] [address] OFFICE VISIT Date of Service: 02/09/22 MR#: [id number] Acct: [id number] Name: FREDERIC OVALLES Rep #: [id number] : 1960 Provider: Dr. 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 RESULTS: BCR/ABL1 Normal Nuclei Positive Nuclei with Dual Fusion 3.33% 96.67% CYTOGENETICS REPORT FROM [facility] INTERPRETATION: Abnormal male karyotype was observed in [...] typically does not require any otc analgesia. 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 Encounter for screening [...] use well-balanced diet: about half the time uyen/uatsdin: Druze seatbelt use: always do you feel safe [...] 97 Oxygen Delivery Method room air Intake Promotions Assistant Sales Marketing Required: No Is patient in pain?: No [...] #30 tab 05/05/20 [Rx Confirmed 12/27/21] omega 1-idi-tff-fish oil 1 cap PO DAILY 05/12/20 [History [...] 3 Months C92.10 Plan - Savi Rodriguez RESP THERAPIST, RESP THERAPIST-C: 61-year-old male who presented with with a [...] Oncology Visit Report Comments: See Note; NOTES: [facility] [address] [place] [address] OFFICE VISIT Date of Service: 11/22/211122 MR#: [id number] Acct: [id number] Name: FREDERIC OVALLES Rep #: [id number] : 1960 From: Sawyer Delgado MD Age/Sex: [...] and megakaryocytes. 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 RESULTS: BCR/ABL1 Normal Nuclei Positive Nuclei with Dual Fusion 3.33% 96.67% CYTOGENETICS REPORT FROM [facility] INTERPRETATION: Abnormal male karyotype was observed in twenty metaphases analyzed. 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 Sawyer Delgado MD Pony Ride Attendant, [facility] Divisions of Medical Oncology Hematology Department of Internal Medicine [address] [address] This note was generated using a voice [...] Note; NOTES: [facility] [address] [place] [address] Carotid Duplex Ultrasound 09/06/21 1106 MR#: [id number] Acct: [id number] Name: FREDERIC OVALLES Rep #: [id number] : 1960 61 From: Wolfgang Thompson MD Attending Dr: Dr. Hector Hsu MD Status: AAMIR LEE Ordering Dr: Hector Hsu MD Date: 09/06/21 Location: [facility] Sex: M C Admitted: Reason For Study: [...] the left vertebral artery. Procedure Carotid Duplex 69508. Exam performed in department. VL/Carotid Duplex Ultrasound [...] Dictated: 09/06/21 1106 Date Transcribed: 09/06/21 1237 Rivet Tosser: Signed Jocelin Saunders DO Work Phone: Start: 08-23-2021 End: 08-23-2021 Oncology Visit Report Comments: See Note; NOTES: [facility] [address] [address] OFFICE VISIT Date of Service: 08/23/21 1115 MR#: [id number] Acct: [id number] Name: FREDERIC OVALLES Rep #: [id number] : 1960 From: Sawyer Delgado MD Age/Sex: 61/M Location: [facility] [place] Status: Signed HPI Subjective Date of [...] and megakaryocytes. 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 RESULTS: BCR/ABL1 Normal Nuclei Positive Nuclei with Dual Fusion 3.33% 96.67% CYTOGENETICS REPORT FROM [facility] INTERPRETATION: Abnormal male karyotype was observed in twenty metaphases analyzed. 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 Sawyer Delgado MD Pony Ride Attendant, [facility] Divisions of Medical Oncology Hematology Department of Internal Medicine [place] [address] This note was generated using a voice [...] Sawyer Delgado MD> Date Sawyer Delgado MD [facility] Signature: Date (if applicable) CC: Dr. Joclein Saunders, DO Jocelin Saunders DO Work Phone: Start: 08-18-2021 End: 08-18-2021 Cardiology Visit Report Comments: See Note; NOTES: [facility] [address] [place] [address] OFFICE VISIT Date of Service: 08/18/21 MR#: [id number] Acct: [id number] Name: FREDERIC OVALLES Rep #: [id number] : 1960 Provider: Dr. 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 Jocelin Saunders DO Status: REG CLI Study: Low Dose CT Lung Screening Date of Exam: 05/30 Exam# [id number] Ordering Dr: Savi Rodriguez RESP THERAPIST RESP THERAPIST -C STUDY: LOW DOSE CT LUNG CANCER [...] CC: SELVIN Rodriguez; Dr. Jocelin Saunders DO Rivet Tosser: Signed Jocelin Saunders DO Work Phone: Start: 05-30-2021 End: 05-30-2021 Oncology Visit Report Comments: See Note; NOTES: [facility] [address] [place] [address] OFFICE VISIT Date of Service: 05/30/21 1255 MR#: [id number] Acct: [id number] Name: FREDERIC OVALLES Rep #: [id number] : 1960 From: Savi Akers Age/Sex: 60/M Location: [facility] [place] Status: Signed HPI HPI Reviewed eligibility [...] #30 tab 05/05/20 [Rx Confirmed 05/30/21] omega 1-uef-buy-fish oil 1 cap PO DAILY 05/12/20 [History [...] (Updated 05/30/21 @ 13:14 by Savi Rodriguez RESP THERAPIST, RESP THERAPIST-C) 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 Per LUNG RADS category 2 a low-dose CT chest scan is recommended in 12 months. Patient is made aware images are subject to multidisciplinary review and if alternate recommendations for screening are advised, he/she will be contacted via phone. 2. Other findings: emphysema and coronary artery calcifications. These are not new findings. Advise routine follow-up with his PCP and blueprint machine operator. (2) Tobacco use disorder, continuous: Status: Acute Keanu Rodriguez RESP THERAPIST, RESP THERAPIST-C: A 11 minute, face to face discussion [...] in the precontemplation phase. Declined referral to [facility] tobacco cessation program. 05/30/21 1722 <Electronically signed by Svai MONTALVO> Date Savi MONTALVO Cosigner Signature: Date (if applicable) CC: Dr. Jocelin Saunders, DO Jocelin Saunders DO Work Phone: Start: 05-23-2021 End: 05-23-2021 Oncology Visit Report Comments: See Note; NOTES: [facility] [address] [place] [address] OFFICE VISIT Date of Service: 05/23/21 1419 MR#: [id number] Acct: [id number] Name: FREDERIC OVALLES Rep #: [id number] : 1960 From: Sawyer Delgado MD Age/Sex: 60/M Location: [facility] [place] Status: Signed HPI Subjective Date of [...] and megakaryocytes. 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 RESULTS: BCR/ABL1 Normal Nuclei Positive Nuclei with Dual Fusion 3.33% 96.67% CYTOGENETICS REPORT FROM [facility] INTERPRETATION: Abnormal male karyotype was observed in twenty metaphases analyzed. 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 Essential (primary) hypertension [...] use well-balanced diet: about half the time uyen/uatsdin: Druze seatbelt use: always do you feel safe [...] 96 Oxygen Delivery Method simple mask Intake Promotions Assistant Sales Marketing Required: No Accompanied by: Self Is patient [...] #30 tab 05/05/20 [Rx Confirmed 05/23/21] omega 7-fea-peq-fish oil 1 cap PO DAILY 05/12/20 [History [...] no focal motor deficits Coordination / Balance: wwuitm-fc-segu test normal Speech: speech normal Gait (Neuro): [...] impression and plan discussed. Sawyer Delgado MD Pony Ride Attendant, [facility] Divisions of Medical Oncology Hematology Department of Internal Medicine [place] [address] This note was generated using a voice recognition system software. Although it was reviewed by the author prior to finalization, it may still contain incorrect words, spelling, and punctuation that were not noted when reviewing prior to saving. If a clinically significant typo or inaccurately typed phrase is noted, please notify the author. 05/23/21 8193 <Electronically signed by Sawyer Delgado MD> Date Sawyer Delgado MD Cosigner Signature: Date (if applicable) CC: Dr. Jocelin Saunders, DO Jocelin Saunders DO Work Phone: Start: 04-03-2021 End: 04-03-2021 Oncology Visit Report Comments: See Note; NOTES: [facility] [place] [address] OFFICE VISIT Date of Service: 04/03/21 1055 MR#: [id number] Acct: [id number] Name: FREDERIC OVALLES Rep #: [id number] : 1960 From: Savi Rodriguez NP RESP THERAPIST -C Age/Sex: 60/M Location: [facility] [place] Status: Signed HPI Subjective Date of [...] and megakaryocytes. 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 RESULTS: BCR/ABL1 Normal Nuclei Positive Nuclei with Dual Fusion 3.33% 96.67% CYTOGENETICS REPORT FROM [facility] INTERPRETATION: Abnormal male karyotype was observed in twenty metaphases analyzed. 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 He presented to [facility] ED with CP on 03/17/21. CP found to be pleuritic, WBC 13 but ? RLL infiltrate.COVID rapid negative. Discharged home with Rx for doxycycline. States completed antibiotic therapy as advised. Vastly improved however admits to continuation of infrequent nonproductive cough. Patient was encouraged to follow up with oncology d/t mild leukocytosis. Reports good tolerance and good adherence with dasatinib. 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 Jcoelin Saunders, DO Jocelin Saunders DO Work Phone: Start: 03-17-2021 End: 03-18-2021 Emergency Department Summary Comments: See Note; NOTES: [facility] Medical Records Department [address] [place] [address] Emergency Department Summary 03/17/21 MR#: [id number] Acct: [id number] Name: FREDERIC OVALLES Rep #: [id number] : 1960 60 From: Edwina Meeks DO [...] as coronary artery disease status post stents. [facility] Medical History (Updated 03/18/21 @ 01:[address] 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 Patient will follow up with his subassembler for his leukocytosis as well as his [...] (Auto) 67.7 Lymph % (Auto) 17.9 L Dallas % (Auto) 10.2 H Eos % (Auto) [...] (Auto) Neut % (Auto) Lymph % (Auto) [place] % (Auto) Eos % (Auto) Baso % [...] (Reason: Nausea/Emesis) Qty: 30 RF: 6 omega 6-xrc-lvr-fish oil 500 MG capsule,delayed release(DR/EC) 1 cap [...] you for pneumonia today. You can take sisn-xzf-srqlahf ibuprofen as needed for the pain. Do not take more than what is recommended on the bottle. Disposition Disposition: Home, Self Care What to do if you have Problems For any increased pain, shortness of breath, bleeding, nausea or vomiting, chest pain, or any unexpected problems, contact your Primary Care Provider. Call [facility] ([phone]) or report to the closest Emergency Room. Call 911 if necessary. 03/18/21 0104 <Electronically signed by Edwina Meeks DO> Cosigner Signature (if applicable): CC: Dr. Jocelin Saunders DO Signed Jocelin Saunders DO Work Phone: Start: 03-17-2021 End: 03-17-2021 Chest 1 View (Portable) Comments: See Note; NOTES: [facility] Imaging Services [address] [place] [address] Chest 1 View (Portable) MR#: [id number] Acct: [id number] Name: FREDERIC OVALLES Rep #: [id number] : 1960 M 60 From: Jesus Benito MD PCP: Dr. Jocelin Saunders DO Status: PRE ER Study: Chest 1 View (Portable) Date of Exam: 03/17/21 Exam# [id number] Ordering Dr: Edwina Meeks DO STUDY: X-RAY [...] Edwina Meeks DO; Dr. Jocelin Saunders DO Rivet Tosser: Signed Jocelin Saunders DO Work Phone: Start: 03-17-2021 End: 03-20-2021 12 Lead EKG Comments: See Note; NOTES: [facility] Cardiovascular Services [address] [place] [address] 12 Lead EKG 03/17/212122 MR#: [id number] Acct: [id number] Name: FREDERIC OVALLES Rep #: [id number] : 1960 60 From: Hector Hsu MD [...] Borderline ECG Confirmed by SHADI HICKS, HECTOR ([id number]), senior technical editor RULA VAZQUEZ ([id number]) on 03/20/2021 12:54:59 PM Referred By: DR YOUNGER Confirmed By:HECTOR HSU MD 03/20/21 1254 Date Hector Hsu MD CC: Dr. Edwina Meeks DO; Dr. Jocelin Saunders DO; ED PHYSICIAN PROVIDER Signed Jocelin Saunders DO Work Phone: Start: 02-22-2021 End: 02-22-2021 Oncology Visit Report Comments: See Note; NOTES: [facility] [address] [address] OFFICE VISIT Date of Service: 02/22/21 1356 MR#: [id number] Acct: [id number] Name: FREDERIC OVALLES Rep #: [id number] : 1960 From: Sawyer Delgado MD Age/Sex: 60/M Location: [facility] [place] Status: Signed HPI Subjective Date of [...] and megakaryocytes. 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 RESULTS: BCR/ABL1 Normal Nuclei Positive Nuclei with Dual Fusion 3.33% 96.67% CYTOGENETICS REPORT FROM [facility] INTERPRETATION: Abnormal male karyotype was observed in twenty metaphases analyzed. 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 Essential (primary) hypertension [...] use well-balanced diet: about half the time uyen/uatsdin: Druze seatbelt use: always do you feel safe [...] 93 Oxygen Delivery Method room air Intake Promotions Assistant Sales Marketing Required: No Accompanied by: Self Is patient [...] #30 tab 05/05/20 [Rx Confirmed 02/22/21] omega 6-pgo-cob-fish oil 1 cap PO DAILY 05/12/20 [History Confirmed 02/22/21] dasatinib 100 mg PO DAILY 07/13/20 [History Confirmed 02/22/21] vitamin E 200 unit PO DAILY 08/25/20 [History Confirmed 02/22/21] Central Venous Access Central Venous Access: No RUN DATE: 02/22/21 [facility], DEPARTMENT OF LABORATORIES PAGE 1 RUN TIME: 1409 Specimen Inquiry [address] [place], [address] PATIENT: FREDERIC OVALLES LOC: ONC U #: [id number] : 1960 AGE/SX: 60/M FACILITY: [facility] ROOM: RE02/08/[address]: Rigoberto Langford STATUS:REG RCR BED: DIS: SPEC #: [id number] ISAAC: 02/08/21 STATUS: COMP REQ #: [id number] RECD: 02/08/[address]: Dr. Sawyer Delgado MD ENTERED: 02/08/[address]: QUERIES: Comments: # [id number] BCR/ABL Test(s) Ordered: [id number] BCR/ABL GREEN SHEP WB RT Test Result Flag Adult Reference Range [facility] TEST TEST RESULT UNITS REF INTERVAL BCR-ABL1, CML/ALL, PCR, Quant e13a2 (b2a2) transcript 0.0310 % e14a2 (b3a2) transcript % <0.0032 % e1a2 transcript 01 % <0.0032 % Interpretation: Positive POSITIVE for the BCR-ABL1 e13a2 (b2a2, p210) fusion transcript. Director Review Christopher Mckeon, PhD, FAC Director, Molecular Oncology [facility] Molecular [place] [address] Background This assay can detect three different [...] developed and its performance characteristics determined by [facility]. It has not been cleared or approved by the Food and Drug Administration. TESTING PERFORMED AT [facility]. ORIGINAL REPORT ON FILE IN LAB [...] and moves all extremities Coordination / Balance: ccuytz-rq-nfvt test normal Speech: speech normal Gait (Neuro): [...] impression and plan discussed. Sawyer Delgado MD Pony Ride Attendant, [facility] Divisions of Medical Oncology Hematology Department of Internal Medicine [place] [address] This note was generated using a voice recognition system software. Although it was reviewed by the author prior to finalization, it may still contain incorrect words, spelling, and punctuation that were not noted when reviewing prior to saving. If a clinically significant typo or inaccurately typed phrase is noted, please notify the author. 02/22/21 0096 <Electronically signed by Sawyer Delgado MD> Date Sawyer Delgado MD Cosigner Signature: Date (if applicable) CC: Dr. Jocelin Saunders, DO Jocelin Saunders DO Work Phone: Start: 12-28-2020 End: 12-28-2020 Stress Report Comments: See Note; NOTES: [facility] Cardiovascular Services [address] [place] [address] MR#: [id number] Acct: [id number] Name: FREDERIC OVALLES Rep #: [id number] : 1960 60 From: Hector Hsu MD Primary Care: Dr. Joclein Saunders, DO Status: REG CLI Referring Dr: [...] Saunders, Date Dictated: 12/28/201732 Date Transcribed: 12/28/201732 Rivet Tosser: [place] Signed Jocelin Saunders DO Work Phone: Start: 12-16-2020 End: 12-16-2020 Cardiology Visit Report Comments: See Note; NOTES: [facility] [address] [place] [address] OFFICE VISIT Date of Service: 12/16/20 MR#: [id number] Acct: [id number] Name: FREDERIC OVALLES Rep #: [id number] : 1960 Provider: Dr. 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 The flow cytometry analysis report from [facility] is reviewable in the patient???s EMR. BONE [...] and megakaryocytes. 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 RESULTS: BCR/ABL1 Normal Nuclei Positive Nuclei with Dual Fusion 3.33% 96.67% CYTOGENETICS REPORT FROM [facility] INTERPRETATION: Abnormal male karyotype was observed in twenty metaphases analyzed. 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 Sawyer Delgado MD Pony Ride Attendant, [facility] Divisions of Medical Oncology Hematology Department of Internal Medicine [facility] [place] [address] This note was generated using a voice recognition system software. Although it was reviewed by the author prior to finalization, it may still contain incorrect words, spelling, and punctuation that were not noted when reviewing prior to saving. If a clinically significant typo or inaccurately typed phrase is noted, please notify the author. 11/24/20 142 <Electronically signed by Sawyer Delgado MD> Date Sawyer Delgado MD Cosigner Signature: Date (if applicable) CC: Dr. Jocelin Saunders, DO Jocelin Saunders DO Work Phone: Start: 08-25-2020 End: 08-25-2020 Oncology Visit Report Comments: See Note; NOTES: [facility] [address] [place] [address] OFFICE VISIT Date of Service: 08/25/20 1312 MR#: [id number] Acct: [id number] Name: FREDERIC OVALLES Rep #: [id number] : 1960 From: Sawyer Delgado MD Age/Sex: [...] and megakaryocytes. 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 RESULTS: BCR/ABL1 Normal Nuclei Positive Nuclei with Dual Fusion 3.33% 96.67% CYTOGENETICS REPORT FROM [facility] INTERPRETATION: Abnormal male karyotype was observed in [...] Absolute Neuts (auto) 3.3 RUN DATE: 08/25/20 [facility], DEPARTMENT OF LABORATORIES PAGE 1 RUN TIME: 1347 Specimen Inquiry [address] [place], [place], [address] PATIENT: FREDERIC OVALLES LOC: OMD U #: [id number] : 1960 AGE/SX: 60/M FACILITY: [facility] ROOM: RE08/25/[address]: Rigoberto Langford STATUS: REG [facility] BED: DIS: SPEC #: [id number] ISAAC: 08/10/20 STATUS: COMP REQ #: [id number] RECD: 08/10/[address] [facility] [address]: Savi Rodriguez, RESP THERAPIST-C ENTERED: 08/10/[address] [facility] [address]: Dr. Jocelin Saunders, DO Dr. Sawyer Delgado MD QUERIES: Comments: BCR ABL - LC# [id number] BCR-ABL GREEN SHEP RT WB Test(s) Ordered: [id number] BCR-ABL GREEN SHEP RT WB Test Result Flag Adult Reference Range [facility] TEST TEST RESULT LIMITS BCR-ABL1, CML/ALL, PCR, Quant e13a2 (b2a2) transcript 0.3342 % e14a2 (b3a2) transcript % <0.0032 % e1a2 transcript % <0.0032 % Interpretation: Positive POSITIVE for the BCR-ABL1 e13a2 (b2a2, p210) fusion transcript. Director Review Dayan Davila, PhD, [facility] Director, Molecular Genetics [facility] [place], [place] Background This assay can detect three [...] impression and plan discussed. Sawyer Delgado MD Pony Ride Attendant, [facility] Divisions of Medical Oncology Hematology Department of Internal Medicine [place] [address] This note was generated using a voice [...] PO Q8H PRN PRN #30 tab 05/05/20 [place]-3 Fatty Acids [Fish Oil] 1 cap PO DAILY 05/12/20 Dasatinib [Sprycel] 100 mg PO DAILY 07/13/20 Vitamin E 200 unit PO DAILY 08/25/20 Primary Care Provider: Dr. Jocelin Saunders DO Referring Provider: Dr. Jocelin Saunders DO 08/25/20 9140 <Electronically signed by Sawyer Delgado MD> Date Sawyer Delgado MD Cosigner Signature: Date (if applicable) CC: DO Jocelin Wiseman Start: 07-13-2020 End: 07-13-2020 Oncology Visit Report Comments: See Note; NOTES: [facility] [address] [address] OFFICE VISIT Date of Service: 07/13/20 1222 MR#: [id number] Acct: [id number] Name: FREDERIC OVALLES Rep #: [id number] : 1960 From: Savi ZarateC Age/Sex: 60/M [...] neoplasm. The flow cytometry analysis report from [facility] is reviewable in the patient???s EMR. BONE [...] Dual Fusion 3.33% 96.67% CYTOGENETICS REPORT FROM [facility] INTERPRETATION: Abnormal male karyotype was observed in [...] % Lymph % (Auto) 28.9 (19-41) % [place] % (Auto) 7.5 (0-10) % Eos % [...] BCR/ABL due July 2020. Savi Rodriguez, MSN, SEARCH MANAGER-C, AOCNP Medications: Prescriptions This Visit Medication Instructions Recorded Ascorbic Acid [Vitamin C] 1,000 mg PO DAILY 04/05/20 Vitamin E 200 unit PO DAILY 04/05/20 Ondansetron [Zofran] 8 mg PO Q8H PRN PRN #30 tab 05/05/20 [place]-3 Fatty Acids [Fish Oil] 1 cap PO DAILY 05/12/20 Dasatinib [Sprycel] 100 mg PO DAILY 07/13/20 Primary Care Provider: Dr. Jocelin Saunders DO Referring Provider: Dr. Jocelin Saunders DO - Problem List (1) Chronic myeloid leukemia Status: Chronic 07/13/20 1226 <Electronically signed by Savi Rodriguez NP RESP THERAPIST-C> Date Savi Rodriguez NP RESP THERAPIST-C Cosigner Signature: Date (if applicable) CC: Jocelin Saunders Start: 06-15-2020 End: 06-15-2020 Oncology Visit Report Comments: See Note; NOTES: [facility] [address] [place] [address] OFFICE VISIT Date of Service: 06/15/20 1343 MR#: [id number] Acct: [id number] Name: FREDERIC OVALLES Rep #: [id number] : 1960 From: Sawyer Delgado MD Age/Sex: [...] neoplasm. The flow cytometry analysis report from [facility] is reviewable in the patient???s EMR. BONE [...] and megakaryocytes. 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 RESULTS: BCR/ABL1 Normal Nuclei Positive Nuclei with Dual Fusion 3.33% 96.67% CYTOGENETICS REPORT FROM [facility] INTERPRETATION: Abnormal male karyotype was observed in [...] % Lymph % (Auto) 26.0 (19-41) % [place] % (Auto) 8.3 (0-10) % Eos % [...] impression and plan discussed. Sawyer Delgado MD Pony Ride Attendant, [facility] Divisions of Medical Oncology Hematology Department of Internal Medicine [place] [address] This note was generated using a voice [...] PO Q8H PRN PRN #30 tab 05/05/20 Wexford-3 Fatty Acids [Fish Oil] 1 cap PO DAILY 05/12/20 Primary Care Provider: Dr. Jocelin Saunders DO Referring Provider: Dr. Joeclin Saunders DO 06/15/20 1403 <Electronically signed by Sawyer Delgado MD> Date Sawyer Delgado MD Cosigner Signature: Date (if applicable) CC: DO Jocelin Wiseman Start: 06-01-2020 End: 06-01-2020 Oncology Visit Report Comments: See Note; NOTES: [facility] [address] [address] OFFICE VISIT Date of Service: 06/01/20 1433 MR#: [id number] Acct: [id number] Name: FREDERIC OVALLES Rep #: [id number] : 1960 From: Sawyer Delgado MD Age/Sex: [...] neoplasm. The flow cytometry analysis report from [facility] is reviewable in the patient???s EMR. BONE [...] and megakaryocytes. 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 RESULTS: BCR/ABL1 Normal Nuclei Positive Nuclei with Dual Fusion 3.33% 96.67% CYTOGENETICS REPORT FROM [facility] INTERPRETATION: Abnormal male karyotype was observed in [...] % Lymph % (Auto) 29.8 (19-41) % [place] % (Auto) 10.0 (0-10) % Eos % [...] impression and plan discussed. Sawyer Delgado MD Pony Ride Attendant, [facility] Divisions of Medical Oncology Hematology Department of Internal Medicine [place] [address] This note was generated using a voice [...] PO Q8H PRN PRN #30 tab 05/05/20 Wexford-3 Fatty Acids [Fish Oil] 1 cap PO DAILY 05/12/20 Primary Care Provider: Dr. Jocelin Saunders DO Referring Provider: Dr. Jocelin Saunders DO 06/01/20 1276 <Electronically signed by Sawyer Delgado MD> Date Sawyer Delgado MD Cosigner Signature: Date (if applicable) CC: Jocelin Puja Start: 05-25-2020 End: 05-25-2020 Oncology Visit Report Comments: See Note; NOTES: [facility] [address] [place] [address] OFFICE VISIT Date of Service: 05/25/20 1045 MR#: [id number] Acct: [id number] Name: FREDERIC OVALLES Rep #: [id number] : 1960 From: Sawyer Delgado MD Age/Sex: [...] and megakaryocytes. 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 RESULTS: BCR/ABL1 Normal Nuclei Positive Nuclei with Dual Fusion 3.33% 96.67% CYTOGENETICS REPORT FROM [facility] INTERPRETATION: Abnormal male karyotype was observed in [...] impression and plan discussed. Sawyer Delgado MD Pony Ride Attendant, [facility] Divisions of Medical Oncology Hematology Department of Internal Medicine [place] [address] This note was generated using a voice [...] PO Q8H PRN PRN #30 tab 05/05/20 [place]xford-3 Fatty Acids [Fish Oil] 1 cap PO DAILY 05/12/20 Primary Care Provider: Dr. Jocelin Saunders DO Referring Provider: Dr. Jocelin Saunders DO 05/25/20 1138 <Electronically signed by Sawyer Delgado MD> Date Sawyer Delgado MD Cosigner Signature: Date (if applicable) CC: Jocelin Saunders Start: 05-20-2020 End: 05-20-2020 Cardiology Visit Report Comments: See Note; NOTES: [facility] [address] [place] [address] OFFICE VISIT Date of Service: 05/20/20 MR#: [id number] Acct: [id number] Name: FREDERIC OVALLES Rep #: [id number] : 1960 Provider: Dr. Hector Hsu MD Age/Sex: 59/M Location: [facility] [place] Status: Signed HPI HPI History of Present [...] PRN #30 tab 05/05/20 [Rx Confirmed 05/20/20] Wexford-3 Fatty Acids [Fish Oil] 1 cap PO DAILY 05/12/20 [History Confirmed 05/20/20] Ejection fraction %: 55 to 59 PFSH Medical History Atherosclerosis of coronary artery of southern ute heart without angina pectoris (Chronic) History of [...] normal affect Assessment Plan 1. Atherosclerosis of southern ute coronary artery of southern ute heart without angina pectoris I25.10 Plan He [...] Today Dr. Hector Hsu MD Referrals: Cardiology Saiv Rodriguez NP, NP-C 2. 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) Coding Level of Care Code Off vis,new,level 4 Diagnoses Atherosclerosis of southern ute coronary artery of southern ute heart without angina pectoris I25.10 ?Coronary Disease-Associated Artery/Lesion type: southern ute artery Chronic myeloid leukemia C92.10 Essential (primary) hypertension I10 Pure hypercholesterolemia E78.00 ?Hyperlipidemia type: pure hypercholesterolemia Coding Level of Care Code Off vis,new,level 4 Diagnoses Atherosclerosis of southern ute coronary artery of southern ute heart without angina pectoris I25.10 ?Coronary Disease-Associated Artery/Lesion type: southern ute artery Chronic myeloid leukemia C92.10 Essential (primary) hypertension I10 Pure hypercholesterolemia E78.00 ?Hyperlipidemia type: pure hypercholesterolemia Supplemental Info Supplemental Information Diagnostics Electrocardiogram 04/20/20 Echocardiogram 04/20/20 05/20/20 1222 <Electronically signed by Hector Hsu MD> Date Hector Hsu MD Cosigner Signature: Date (if applicable) CC: Dr. Jocelin Saunders, DO; MD Jocelin Langford Start: 05-19-2020 End: 05-19-2020 Oncology Visit Report Comments: See Note; NOTES: [facility] [address] [place] [address] OFFICE VISIT Date of Service: 05/19/20 1438 MR#: [id number] Acct: [id number] Name: FREDERIC OVALLES Rep #: [id number] : 1960 From: Sawyer Delgado MD Age/Sex: [...] neoplasm. The flow cytometry analysis report from [facility] is reviewable in the patient???s EMR. BONE [...] and megakaryocytes. 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 RESULTS: BCR/ABL1 Normal Nuclei Positive Nuclei with Dual Fusion 3.33% 96.67% CYTOGENETICS REPORT FROM [facility] INTERPRETATION: Abnormal male karyotype was observed in [...] % Lymph % (Auto) 22.5 (19-41) % [place] % (Auto) 8.2 (0-10) % Eos % [...] impression and plan discussed. Sawyer Delgado MD Pony Ride Attendant, [facility] Divisions of Medical Oncology Hematology Department of Internal Medicine [facility] [address] [address] This note was generated using a voice [...] PO Q8H PRN PRN #30 tab 05/05/20 Wexford-3 Fatty Acids [Fish Oil] 1 cap PO DAILY 05/12/20 Primary Care Provider: Dr. Jocelin Saunders DO Referring Provider: Dr. Jocelin Saunders DO 05/19/20 1450 <Electronically signed by Sawyer Delgado MD> Date Sawyer Delgado MD Cosigner Signature: Date (if applicable) CC: Jocelin Saunders Start: 05-17-2020 End: 05-17-[address] Lung Screening Comments: See Note; NOTES: [facility] Imaging Services [address] [place] [address] Lung Screening MR#: [id number] Acct: [id number] Name: FREDERIC OVALLES Rep #: [id number] : 1960 M 59 From: Jeovanny medeiros MD PCP: Dr. Jocelin Saunders DO Status: [facility] Study: Low Dose CT Lung Screening Date of Exam: 05/17 Exam# [id number] Ordering Dr: Savi Rodriguez NP RESP THERAPIST -C STUDY: LOW DOSE CT LUNG CANCER [...] CC: SELVIN Rodriguez; Dr. Jocelin Saunders DO Rivet Tosser: Signed Jocelin Saunders Start: 05-17-2020 End: 05-17-2020 Oncology Visit Report Comments: See Note; NOTES: [facility] [address] [address] OFFICE VISIT Date of Service: 05/17/20 1358 MR#: [id number] Acct: [id number] Name: FREDERIC OVALLES Rep #: [id number] : 1960 From: Savi Rodriguez RESP THERAPIST RADHA Akers Age/Sex: 59/M Location: [facility] Status: Signed HPI HPI Reviewed eligibility criteria: [...] No Known Allergies Allergy (Verified 05/17/20 14:00) 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 (Chronic) History of [...] 05/17/20 @ 17:07 by Savi Rodriguez NP, RESP THERAPIST-C) Smoking Status: Current some day smoker Assessment [...] routine follow up with his pcp and blueprint machine operator. Orders Orders: Low Dose CT Lung Screening [...] cessation. You may call the free hotline 8-507-KHGUNOW. People who use this line are THREE times more likely to remain smoke free. Orders Orders: Low Dose CT Lung Screening Today 05/17/20 1707 <Electronically signed by Savi Rodriguez NP, NP-C> Date Savi Rodriguez NP RESP THERAPIST-C Cosigner Signature: Date (if applicable) CC: Dr. Hector Hsu MD; Dr. Jocelin Saunders DO; MD Jocelin Langford Start: 05-12-2020 End: 05-12-2020 Oncology Visit Report Comments: See Note; NOTES: [facility] [address] [address] OFFICE VISIT Date of Service: 05/12/20 1313 MR#: [id number] Acct: [id number] Name: FREDERIC OVALLES Rep #: [id number] : 1960 From: Sawyer Delgado MD Age/Sex: [...] neoplasm. The flow cytometry analysis report from [facility] is reviewable in the patient???s EMR. BONE [...] and megakaryocytes. 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 RESULTS: BCR/ABL1 Normal Nuclei Positive Nuclei with Dual Fusion 3.33% 96.67% CYTOGENETICS REPORT FROM [facility] INTERPRETATION: Abnormal male karyotype was observed in [...] % Lymph % (Auto) 20.4 (19-41) % [place] % (Auto) 6.3 (0-10) % Eos % [...] impression and plan discussed. Sawyer Delgado MD Pony Ride Attendant, [facility] Divisions of Medical Oncology Hematology Department of Internal Medicine [place] [phone] This note was generated using a voice [...] PO Q8H PRN PRN #30 tab 05/05/20 [place]-3 Fatty Acids [Fish Oil] 1 cap PO DAILY 05/12/20 Primary Care Provider: Dr. Jocelin Saunders DO Referring Provider: Dr. Jocelin Saunders DO 05/12/20 1323 <Electronically signed by Sawyer Delgado MD> Date Sawyer Delgado MD Cosigner Signature: Date (if applicable) CC: Jocelin Saunders Start: 05-05-2020 End: 05-05-2020 Oncology Visit Report Comments: See Note; NOTES: [facility] [address] [address] OFFICE VISIT Date of Service: 05/05/20 1345 MR#: [id number] Acct: [id number] Name: FREDERIC OVALLES Rep #: [id number] : 1960 From: Sawyer Delgado MD Age/Sex: [...] neoplasm. The flow cytometry analysis report from [facility] is reviewable in the patient???s EMR. BONE [...] and megakaryocytes. 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 RESULTS: BCR/ABL1 Normal Nuclei Positive Nuclei with Dual Fusion 3.33% 96.67% CYTOGENETICS REPORT FROM [facility] INTERPRETATION: Abnormal male karyotype was observed in [...] impression and plan discussed. Sawyer Delgado MD Pony Ride Attendant, [facility] Divisions of Medical Oncology Hematology Department of Internal Medicine [facility] [address] [place], [place] [address] This note was generated using a voice [...] Referring Provider: Dr. Jocelin Saunders DO 05/05/20 3407 <Electronically signed by Sawyer Delgado MD> Date Sawyer Delgado MD Cosigner Signature: Date (if applicable) CC: Jocelin Saunders Start: 04-28-2020 End: 04-28-2020 Oncology Visit Report Comments: See Note; NOTES: [facility] [place] [address] OFFICE VISIT Date of Service: 04/28/20 1245 MR#: [id number] Acct: [id number] Name: FREDERIC OVALLES Alyx Rep #: [id number] : 1960 From: Sawyer Delgado MD Age/Sex: [...] and megakaryocytes. 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 RESULTS: BCR/ABL1 Normal Nuclei Positive Nuclei with Dual Fusion 3.33% 96.67% CYTOGENETICS REPORT FROM [facility] INTERPRETATION: Abnormal male karyotype was observed in [...] attended a formal chemotherapy teaching session was RESP THERAPIST and was provided with educational material. Main side effects of dasatinib were reviewed. #2-refer to lung cancer screening register and smoking cessation discussed.. Patient was seen with his , impression and plan discussed. Sawyer Delgado MD Pony Ride Attendant, [facility] Divisions of Medical Oncology Hematology Department of Internal Medicine [place] [phone] This note was generated using a voice [...] Referring Provider: Dr. Jocelin Saunders DO 04/28/20 7485 <Electronically signed by Sawyer Delgado MD> Date Sawyer Delgado MD Cosigner Signature: Date (if applicable) CC: DO Jocelin Wiseman Start: 04-20-2020 End: 04-20-2020 Oncology Visit Report Comments: See Note; NOTES: [facility] [address] [place] [address] OFFICE VISIT Date of Service: 04/20/20 1020 MR#: [id number] Acct: [id number] Name: FREDERIC OVALLES Rep #: [id number] : 1960 From: Savi Rodriguez NP RESP THERAPIST -C Age/Sex: 59/M Location: [facility] Status: Signed [...] pending. Patient to be evaluated by his blueprint machine operator, Dr. Hsu in cardio onc clinic upon initiation of therapy. 5. Ultrasound abdomen to assess spleen size due to limited clinical ability to assess spleen because of his size and weight and qPCR on peripheral blood for BCR ABL pretreatment baseline- pending. RTO 04/28/20 as previously planned to review BMBX, splenic US and quant. BCR ABL. Savi Rodriguez, MSN, SEARCH MANAGER-C, AOCNP Medications: Prescriptions This Visit Medication Instructions Recorded Ascorbic Acid [Vitamin C] 1,000 mg PO DAILY 04/05/20 Vitamin E 200 unit PO DAILY 04/05/20 Primary Care Provider: Dr. Jocelin Saunders DO Referring Provider: Dr. Jocelin Saunders DO - Problem List (1) Chronic myeloid leukemia Status: Chronic (2) Encounter for education Status: Acute 04/20/20 1209 <Electronically signed by Savi Rodriguez RESP THERAPIST RESP THERAPIST-C> Date Savi Rodriguez RESP THERAPIST RESP THERAPIST-C Cosigner Signature: Date (if applicable) CC: Jocelin Saunders Start: 04-20-2020 End: 04-21-2020 12 Lead EKG Comments: See Note; NOTES: [facility] Cardiovascular Services [address] [place] [address] 12 Lead EKG 04/20/20 0933 MR#: [id number] Acct: [id number] Name: FREDERIC OVALLES Rep #: [id number] : 1960 59 From: Hector Hsu MD Attending Dr: Dr. Sawyer Delgado MD Status: REG [facility] Ordering Dr: Sawyer Delgado MD Date: [...] Normal ECG Confirmed by SHADI HICKS, HECTOR ([id number]), senior technical editor CASEY LESLIE ([id number]) on 04/21/2020 8:14:54 AM Referred By: Sawyer Delgado Confirmed By:HECTOR HSU MD 04/21/20 0814 Date Hector Hsu MD CC: Dr. Jocelin Saunders, DO; Dr. Sawyer Delgado MD Signed Sawyer Delgado Work Phone: Start: 04-20-2020 End: 04-20-2020 ONC Echo Complete W/ Contrast Comments: See Note; NOTE S: [facility] Services [address] [place] [address] ONC Echo Complete W/ Contrast 04/20/20 0844 MR#: [id number] Acct: [id number] Name: FREDERIC OVALLES Rep #: [id number] : 1960 59 From: Hector Hsu MD [...] MD Date Dictated: 04/20/2044 Date Transcribed: 04/20/201328 Rivet Tosser: Signed Sawyer Delgado Work Phone: Start: 04-13-2020 End: 04-13-2020 Biopsy/Inj or Needle Placement Comments: See Note; NOT ES: [facility] Imaging Services [address] [place] [address] Biopsy/Inj or Needle Placement MR#: [id number] Acct: [id number] Name: FREDERIC OVALLES Rep #: [id number] : 1960 M 59 From: Jeovanny medeiros MD PCP: Dr. Jocelin Saunders DO Status: REG CLI Study: Biopsy/Inj or Needle Placement Date of Exam: 0 04/13/20 Exam# [id number] Ordering Dr: Sawyer Delgado MD PROCEDURE: CT [...] Jocelin Saunders DO; Dr. Sawyer Delgado MD Rivet Tosser: Signed Sawyer Delgado Work Phone: Start: 04-13-2020 End: 04-13-2020 Spleen Comments: See Note; NOTES: [facility] Imaging Services [address] [place] [address] Spleen MR#: [id number] Acct: [id number] Name: MARISAPATRICIAFREDERIC Rep #: [id number] : 1960 M 59 From: Jeovanny medeiros MD PCP: Dr. Jocelin Saunders DO Status: REG CLI Study: Spleen Date of Exam: 04/13/20 Exam# [id number] Ordering Dr: Sawyer Delgado MD STUDY: ABDOMINAL [...] Jocelin Saunders DO; Dr. Sawyer Delgado MD Rivet Tosser: Signed Sawyer Delgado Work Phone: Start: 04-05-2020 End: 04-05-2020 Oncology Visit Report Comments: See Note; NOTES: [facility] [address] [place] [address] OFFICE VISIT Date of Service: 04/05/20 1001 MR#: [id number] Acct: [id number] Name: FREDERIC OVALLES Rep #: [id number] : 1960 From: Sawyer Delgado MD Age/Sex: [...] to starting systemic therapy Sawyer Delgado MD Pony Ride Attendant, [facility] Divisions of Medical Oncology Hematology Department of Internal Medicine [place] [phone] This note was generated using a voice [...] Oncology Visit Report Comments: See Note; NOTES: [facility] [address] [place] [address] OFFICE VISIT Date of Service: 03/14/20 1303 MR#: [id number] Acct: [id number] Name: FREDERIC OVALLES Rep #: [id number] : 1960 From: Sawyer Delgado MD Age/Sex: [...] Impression and plan discussed. Sawyer Delgado MD Pony Ride Attendant, [facility] Divisions of Medical Oncology Hematology Department of Internal Medicine [place] [phone] This note was generated using a voice [...] and Physical Comments: See Note; NOTE S: [facility] Medical Records Department [address] [place] [address] History and Physical 03/07/20 1427 MR#: [id number] Acct: [id number] Name: FREDERIC OVALLES Rep #: [id number] : 1960 59 From: Sawyer Delgado MD [...] January 2020 and is improving. Power of Residential Program Worker: No Living Will: No Health History: Past Medical History (Last Reviewed 03/07/20 @ 14:09 by Parris Darby) Atherosclerosis of coronary artery of southern ute heart without angina pectoris (Chronic) History of [...] drinking: Has the patient needed an eye sales program coordinator in the mornings: Comments: Date of last [...] the lung cancer screening register at [facility]. 3. Follow-up in 1 week. Impression and plan discussed. Sawyer Delgado MD Pony Ride Attendant, [facility] Divisions of Medical Oncology Hematology Department of Internal Medicine [place] [facility] [place] [phone] This note was generated using a voice [...] Min 2 Views Comments: See Note; NOTES: [facility] Imaging Services [address] [place] [address] Toe(s) Min 2 Views MR#: [id number] Acct: [id number] Name: FREDERIC OVALLES Rep #: [id number] : 1960 M 59 From: Roque Wagner MD PCP: Dr. Jocelin Saunders DO Status: REG CLI Study: Toe(s) Min 2 Views Date of Exam: 02/11/20 Exam# [id number] Ordering Dr: Jocelin Saunders DO STUDY: X-RAY [...] support , CC: Dr. Jocelin Saunders DO Rivet Tosser: Signed Jocelin Saunders Work Phone: Start: 12-15-2019 End: 12-15-2019 Cardiology Visit Report Comments: See Note; NOTES: [facility] [address] [place] [address] OFFICE VISIT Date of Service: 12/15/19 MR#: [id number] Acct: [id number] Name: FREDERIC OVALLES Rep #: [id number] : 1960 Provider: Dr. Hector Hsu MD Age/Sex: 59/M Location: [facility] Status: Signed [facility] History of Present Illness Details: This [...] have access to a blood pressure cuff. 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 (Chronic) History of [...] History of coronary artery stent placement Z95.5 DPQ-KNI-Dmtb LAD 4.0 x 20 mm Synergy, NICA-Mid [...] patient were answered. 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 (computer technician) Coding Level of Care Code Attention Director Of Vocational Training Diagnoses History of coronary artery stent placement Z95.5 Essential (primary) hypertension I10 Pure hypercholesterolemia E78.00 ?Hyperlipidemia type: pure hypercholesterolemia Time Spent (min) 11 Comment 24689 Coding Level of Care Code Attention Director Of Vocational Training Diagnoses History of coronary artery stent placement Z95.5 Essential (primary) hypertension I10 Pure hypercholesterolemia E78.00 ?Hyperlipidemia type: pure hypercholesterolemia Time Spent (min) 11 Comment 79912 Supplemental Info Supplemental Information Diagnostics Echocardiogram 09/04/18 Stress Test Nuclear Medicine 09/04/18 Stress Test 09/04/18 Chest X-Ray 10/27/18 12/15/19 1040 <Electronically signed by Hector Hsu MD> Date Hector Hsu MD Cosigner Signature: Date (if applicable) CC: Dr. Jocelin Saunders, DO Jocelin Saunders Start: 03-19-2019 End: 03-19-2019 Cardiology Visit Report Comments: See Note; NOTES: [facility] [address] [place] [address] OFFICE VISIT Date of Service: 03/19/19 MR#: [id number] Acct: [id number] Name: FREDERIC OVALLES Rep #: [id number] : 1960 Provider: Meron Junior Age/Sex: 58/M Location: [facility] Status: Signed HPI HPI History of Present [...] brachial Intake Visit Reasons: 6 M FU Promotions Assistant Sales Marketing Required: No Is patient in pain?: No [...] PO DAILY 09/02/18 [History Confirmed 03/19/19] omega 6-oeu-exs-fish oil 1,000 mg (120 mg-180 mg) capsule 2 cap PO DAILY cap 09/02/18 [History Confirmed 03/19/19] ramipril 2.5 mg capsule 2.5 mg PO DAILY 09/02/18 [History Confirmed 03/19/19] [facility] Medical History (Updated 03/19/19 @ 09:23 by ALIS Villanueva) Hyperlipidemia (Chronic) Essential (primary) hypertension (Chronic) Nicotine dependence (Chronic) Atherosclerosis of coronary artery of southern ute heart without angina pectoris (Chronic) Old myocardial [...] affect Assessment AND Plan 1. Atherosclerosis of southern ute coronary artery of southern ute heart without angina pectoris I25.10 Plan Stable, [...] statin. 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 (PEANUT VENDOR) Coding Level of Care Code Off vis,est,level 3 Diagnoses Atherosclerosis of southern ute coronary artery of southern ute heart without angina pectoris I25.10 Coronary Disease-Associated Artery/Lesion type: southern ute artery Essential hypertension I10 Pure hypercholesterolemia E78.00; E78.0 Hyperlipidemia type: pure hypercholesterolemia Coding Level of Care Code Off vis,est,level 3 Diagnoses Atherosclerosis of southern ute coronary artery of southern ute heart without angina pectoris I25.10 Coronary Disease-Associated Artery/Lesion type: southern ute artery Essential hypertension I10 Pure hypercholesterolemia E78.00; [...] Surgery Visit Report Comments: See Note; NOTES: [facility] [address] [place] [address]. [address] [place] [address] OFFICE VISIT Date of Service: 11/03/18 MR#: [id number] Acct: [id number] Name: FREDERIC OVALLES Rep #: [id number] : 1960 Provider: Wolfgang Thompson MD Age/Sex: 58/M Location: [facility] Status: Signed Intake Intake Visit Reasons: CARLOS POTTER 10/15 Chief Complaint: migue Promotions Assistant Sales Marketing Required: No Is patient in pain?: No [...] PO DAILY 09/02/18 [History Confirmed 11/03/18] omega 4-vgw-afy-fish oil 1,000 mg (120 mg-180 mg) capsule [...] symptoms. His preoperative evaluation was negative for Lnadry's but positive for erosive esophagitis. And as [...] PA and Lateral Comments: See Note; NOTES: [facility] Imaging Services [address] [place] [address] Chest PA and Lateral MR#: [id number] Acct: [id number] Name: FREDERIC OVALLES Alyx Rep #: [id number] : 1960 58 From: Jeovanny Swan MD PCP: Jocelin Saunders DO Status: [facility] CLI Study: Chest PA and Lateral Date of Exam: 10/27/18 Exam# [id number] Ordering Dr: Wolfgang Thompson MD STUDY: X-RAY [...] CC: Jocelin Saunders DO; Wolfgang Thompson MD Rivet Tosser: Signed Jocelin Saunders Start: 10-27-2018 End: 10-27-2018 Surgery Visit Report Comments: See Note; NOTES: [facility] [address] [place] [address]. [address] [place] [address] OFFICE VISIT Date of Service: 10/27/18 MR#: [id number] Acct: [id number] Name: FREDERIC OVALLES Rep #: [id number] : 1960 Provider: Wolfgang Thompson MD Age/Sex: 58/M Location: [facility] Status: Signed Intake Intake Visit Reasons: f/u lap migue 10/15/18 rc Chief Complaint: migue Promotions Assistant Sales Marketing Required: No Is patient in pain?: Yes [...] PO DAILY 09/02/18 [History Confirmed 10/27/18] omega 1-nam-lcr-fish oil 1,000 mg (120 mg-180 mg) capsule [...] FREDERIC OVALLES : 0 (58/M) Acct Num: [id number] Phys: Jay HICKS,Wolfgang Unit Num: [id number] Loc: EN Specimen: [id number] Received: 09/30/18921 Spec Type: EGD BIOPSY TISSUES 1 TISSUES: A. Gastric mucous membrane B. Esophageal mucous membrane COMMENT A. The results of immunohistochemistry for Helicobacter pylori will be reportedseparately ([id number]). B. PASF stain with matched control supports [...] one cassette. / SJ:lisandra 09/30/18 TC:3 CPT: 28626 x2, 87951 HEADER OPERATION: EGD (MOD) PRE-OP DIAGNOSIS: Hiatal [...] DO 10/02/18 [facility] [address] [place], [address] Start: 09-30-2018 End: 09-30-2018 Operative Report - Endoscopy Comments: See Note; NOTES : [facility] Medical Records Department [address] [place] [address] Operative Report - Endoscopy MR#: [id number] Acct: [id number] Name: FREDERIC OVALLES Rep #: [id number] : 1960 58 From: Wolfgang Thompson MD PCP: Jocelin Saunders DO Status: [facility] 09/30/2018 Jocelin Saunders [address] [facility] [place] [address] Re : Upper GI endoscopy procedure for [...] Thompson MD Date Dictated: 09/30/18701 Date Transcribed: Rivet Tosser: CHAUNCEY Signed Jocelin Saunders Start: 09-19-2018 End: 09-19-2018 Surgery Visit Report Comments: See Note; NOTES: [facility] [place] [address] OFFICE VISIT Date of Service: 09/19/18 MR#: [id number] Acct: [id number] Name: FREDERIC OVALLES Rep #: [id number] : 1960 Provider: Wolfgang Thompson MD Age/Sex: 58/M Location: [facility] Status: Signed Intake Vital Signs09/19/18 Body Mass Index (BMI) 31.6 09/19/18 Height 6 ft 09/19/18 Weight: 234 lb 11 oz 09/19/18 Body Mass Index (BMI) 31.8 09/19/18 Blood Pressure 136/83 H Intake Visit Reasons: TO DISCUSS HIATAL HERNIA Chief Complaint: discuss lap migue Promotions Assistant Sales Marketing Required: No Is patient in pain?: No [...] PO DAILY 09/02/18 [History Confirmed 09/19/18] omega 5-ayl-kma-fish oil 1,000 mg (120 mg-180 mg) capsule cap PO cap 09/02/18 [History Confirmed 09/19/18] omeprazole 40 mg capsule,delayed release 40 mg PO DAILY 09/02/18 [History Confirmed 09/19/18] ramipril 2.5 mg capsule 2.5 mg PO DAILY 09/02/18 [History Confirmed 09/19/18] [facility] Medical History Hyperlipidemia (Chronic) Essential (primary) hypertension (Chronic) Nicotine dependence (Chronic) Atherosclerosis of coronary artery of southern ute heart without angina pectoris (Chronic) Old myocardial [...] demonstrating active reflux. Today is a 15-minute ocyz-gg-kein consultative appointment to review the above findings. MR#:[id number]:[id number] Name: FREDERIC OVALLES [facility] #:[id number] : 1960 Provider:Wolfgang Thompson MD Age/Sex: 58/M Location:[facility] Status:Signed with Addenda ADDENDUM by [...] PO DAILY 09/02/18 [History Confirmed 09/03/18] omega 7-fhz-tfa-fish oil 1,000 mg (120 mg-180 mg) capsule [...] previous evaluation of 2016. We will contact [facility] tomorrow with a request for these results. [...] Intake Visit Reasons: HIATAL HERNIA AND GERD Promotions Assistant Sales Marketing Required: No Is patient in pain?: No [...] PO DAILY 09/02/18 [History Confirmed 09/02/18] omega 4-vqb-bno-fish oil 1,000 mg (120 mg-180 mg) capsule [...] per Dr Rachel who has since left [facility]. The patient seems to describe upper endoscopy and esophageal manometry. He does not recall whether he had a barium swallow. 2 weeks after that he had an acute myocardial infarction and had 2 stents placed. He has been treated with Brilinta ever since. Recently he was seen by his [facility] blueprint machine operator Dr Marco Elizabeth he had his Brilinta stopped. The patient is wanting to establish care locally here in [place]. He could not have his surgical treatment [...] previous evaluation of 2017. We will contact [facility] tomorrow with a request for these results. [...] Brain W/WO Contrast Comments: See Note; NOTES: [facility] Imaging Services [address] [place] [address] Brain W/WO Contrast MR#: [id number] Acct: [id number] Name: FREDERIC OVALLES Rep #: [id number] : 1960 M 58 From: Bandar Owens MD PCP: Jocelin Saunders DO Status: REG CLI Study: Brain W/WO Contrast Date of Exam: 09/09/18 Exam# [id number] Ordering Dr: Jocelin Saunders DO STUDY: MRI [...] Service support , CC: Jocelin Saunders DO Rivet Tosser: Signed Jocelin Saunders Work Phone: Start: 09-09-2018 End: 09-09-2018 Surgery Visit Report Comments: See Note; NOTES: [facility] [address] [place] [address] OFFICE VISIT Date of Service: 09/02/18 MR#: [id number] Acct: [id number] Name: FREDERIC OVALLES Rep #: [id number] : 1960 Provider: Wolfgang Thompson MD Age/Sex: 58/M Location: [facility] [place] [facility] Status: Signed with Addenda ADDENDUM by [...] PO DAILY 09/02/18 [History Confirmed 09/03/18] omega 3-toe-cwx-fish oil 1,000 mg (120 mg-180 mg) capsule [...] previous evaluation of 2016. We will contact [facility] tomorrow with a request for these results. [...] Intake Visit Reasons: HIATAL HERNIA AND GERD Promotions Assistant Sales Marketing Required: No Is patient in pain?: No [...] PO DAILY 09/02/18 [History Confirmed 09/02/18] omega 9-iyo-jrh-fish oil 1,000 mg (120 mg-180 mg) capsule [...] per Dr Rachel who has since left [facility]. The patient seems to describe upper endoscopy and esophageal manometry. He does not recall whether he had a barium swallow. 2 weeks after that he had an acute myocardial infarction and had 2 stents placed. He has been treated with Brilinta ever since. Recently he was seen by his [facility] blueprint machine operator Dr Marco Elizabeth he had his Brilinta stopped. The patient is wanting to establish care locally here in [place]. He could not have his surgical treatment [...] cooperative Nutritional Appearance: obese Orientation: alert, awake HENIA Other: Mustache in place with tobacco staining [...] previous evaluation of 2016. We will contact [facility] tomorrow with a request for these results. [...] End: 09-05-2018 Electroencephalogram Comments: See Note; NOTES: [facility] Pulmonary Services/Neurology [address] [place] [address] MR#: [id number] Acct: [id number] Name: FREDERIC OVALLES Rep #: [id number] : 1960 58 From: Sandro Barclay MD Referring Dr: Jocelin Saunders DO Status: REG CLI Ordering Dr: Date: Location: [facility] Sex: M C - Electroencephalogram This is [...] Date Dictated: 09/05/18 1153 Date Transcribed: 09/05/181152 Rivet Tosser: NF Signed Jocelin Saunders Start: 09-05-2018 End: 09-05-2018 Carotid Duplex Ultrasound Comments: See Note; NOTES: [facility] Cardiovascular Services [address] [place] [address] Carotid Duplex Ultrasound 09/04/18 0947 MR#: [id number] Acct: [id number] Name: FREDERIC OVALLES Rep #: [id number] : 1960 58 From: Dex Claudio MD Attending Dr: Jocelin Saunders DO Status: REG CLI Ordering Dr: Jocelin Saunders DO Date: 09/04/18 Location: [facility] Sex: M C Admitted: Reason For Study: [...] the left vertebral artery. Procedure Carotid Duplex 59892. Exam performed in department. Interpretation Summary Mild (<50%) stenosis right extracranial internal carotid. No significant atherosclerotic plaque or stenosis noted in the left internal carotid artery. Flow within the vertebral arteries is antegrade bilaterally. Ordering Physician: Jocelin Saunders Referring Physician: Jocelin Saunders Performed By: Jade Mclean RVT 09/05/18 0840 Date Dex Claudio MD CC: Jocelin Saunders DO Date Dictated: 09/04/18946 Date Transcribed: 09/05/18839 Rivet Tosser: Signed Jocelin Saunders Work Phone: Start: 09-04-2018 End: 09-04-2018 Echo, Complete w/ Contrast Comments: See Note; NOTES: [facility] Cardiovascular Services [address] [place] [address] Echo Complete W/ Contrast 09/04/1847 MR#: [id number] Acct: [id number] Name: FREDERIC OVALLES Rep #: [id number] : 1960 58 From: Hector Hsu MD Attending Dr: Jocelin Saunders DO Status: REG CLI Ordering Dr: Jocelin Saunders DO Date: 09/04/18 Location: [facility] Sex: M C Admitted: Reason For Study: [...] DO Date Dictated: 09/04/1847 Date Transcribed: 09/04/18947 Rivet Tosser: Signed Jocelin Saunders Work Phone: Start: 09-04-2018 End: 09-04-2018 Stress Report Comments: See Note; NOTES: [facility] Cardiovascular Services [address] [place] [address] MR#: [id number] Acct: [id number] Name: FREDERIC OVALLES Rep #: [id number] : 1960 58 From: Hector Hsu MD [...] MD> Date Hector Hsu MD CC: Jocelin Suanders DO Date Dictated: 09/04/18906 Date Transcribed: 09/04/18906 Rivet Tosser: [place] Signed Jocelin Saunders Start: 09-03-2018 End: 09-03-2018 Cardiology Visit Report Comments: See Note; NOTES: [facility] [address] [place] [address] OFFICE VISIT Date of Service: 09/03/18 MR#: [id number] Acct: [id number] Name: FREDERIC OVALLES Rep #: [id number] : 1960 Provider: Hector Hsu MD Age/Sex: 58/M Location: [facility] Status: Signed HPI HPI Chief Complaint: Preoperative [...] Reasons: Ref'd by Dr Thompson, transfer from [facility] Allergies No Known Allergies Allergy (Unverified 09/03/18 08:52) Medications aspirin 81 mg tablet,delayed release 81 mg PO DAILY 09/02/18 [History Confirmed 09/03/18] atorvastatin 80 mg tablet 80 mg PO DAILY 09/02/18 [History Confirmed 09/03/18] carvedilol 6.25 mg tablet 6.25 mg PO BID 09/02/18 [History Confirmed 09/03/18] cholecalciferol (vitamin D3) 1,000 unit capsule 1,000 unit PO DAILY 09/02/18 [History Confirmed 09/03/18] omega 7-ftz-bar-fish oil 1,000 mg (120 mg-180 mg) capsule cap PO cap 09/02/18 [History Confirmed 09/03/18] omeprazole 40 mg capsule,delayed release 40 mg PO DAILY 09/02/18 [History Confirmed 09/03/18] ramipril 2.5 mg capsule 2.5 mg PO DAILY 09/02/18 [History Confirmed 09/03/18] PFSH Medical History Hyperlipidemia (Chronic) Essential (primary) hypertension (Chronic) Nicotine dependence (Chronic) Atherosclerosis of coronary artery of [place] heart without angina pectoris (Chronic) Old myocardial [...] surgery. 2. Atherosclerosis of coronary artery of [place] heart without angina pectoris I25.10 Plan He [...] continue. 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 Up 6 Months ([facility]) Coding Level of Care Code Off vis,new,level 4 Diagnoses Preop cardiovascular exam Z01.810 Atherosclerosis of coronary artery of [place] heart without angina pectoris I25.10 Essential (primary) hypertension I10 Hyperlipidemia E78.5 Coding Level of Care Code Off vis,new,level 4 Diagnoses Preop cardiovascular exam Z01.810 Atherosclerosis of coronary artery of [place] heart without angina pectoris I25.10 Essential (primary) hypertension I10 Hyperlipidemia E78.5 09/03/18 1128 <Electronically signed by Hector Hsu MD> Date Hector Hsu MD Cosigner Signature: Date (if applicable) CC: Jocelin Thakur Start: 09-02-2018 End: 09-02-2018 Surgery Visit Report Comments: See Note; NOTES: [facility] [address] [place] [address] OFFICE VISIT Date of Service: 09/02/18 MR#: [id number] Acct: [id number] Name: FREDERIC OVALLES Rep #: [id number] : 1960 Provider: Wolfgang Thompson MD Age/Sex: 58/M Location: [facility] Status: Signed Intake Vital Signs09/02/18 Height 6 ft 09/02/18 Weight: 233 lb 09/02/18 Body Mass Index (BMI) 31.6 Intake Visit Reasons: HIATAL HERNIA AND GERD Promotions Assistant Sales Marketing Required: No Is patient in pain?: No [...] PO DAILY 09/02/18 [History Confirmed 09/02/18] omega 6-yen-kfj-fish oil 1,000 mg (120 mg-180 mg) capsule [...] per Dr Rachel who has since left [facility]. The patient seems to describe upper endoscopy and esophageal manometry. He does not recall whether he had a barium swallow. 2 weeks after that he had an acute myocardial infarction and had 2 stents placed. He has been treated with Brilinta ever since. Recently he was seen by his [facility] blueprint machine operator Dr Marco Elizabeth he had his Brilinta stopped. The patient is wanting to establish care locally here in [place]. He could not have his surgical treatment [...] previous evaluation of 2016. We will contact [facility] tomorrow with a request for these results. [...] E66.9 History of myocardial infarction I25.2 09/02/18 6019 <Electronically signed by Wolfgang Thompson MD> Date [...] on above: 02/04 Heart stents Polina Cross VACUUM CASTER Comment on above: 02/04 Heart stents Letty Slafelix RODRIGUEZN Comment on above: 02/04 Heart stents Eufemia Gravius APPLE SORTER Comment on above: 02/04 Heart stents Eufemia Gravius APPLE SORTER Comment on above: 02/04 Hernia repair Talia [...] above: 12 yrs Hernia repair Polina Bhat VACUUM CASTER Comment on above: 12 yrs Hernia repair Letty Slarb VACUUM CASTER Comment on above: 12 yrs Hernia repair Eufemia Gravius APPLE SORTER Comment on above: 12 yrs Hernia repair Eufemia Gravius APPLE SORTER Comment on above: 12 yrs Hernia repair Kayela Marysvale APPLE SORTER Hernia repair Kayela Russell APPLE SORTER Hernia repair Kayela Marysvale APPLE SORTER Hernia repair Víctor Stoneham VACUUM CASTER Hernia repair Víctor Stoneham VACUUM CASTER Investigation of tra nsfusion reaction Dr. Jocelin Saunders Work Phone: Investigation of tra nsfusion reaction Dr. Jocelin Saunders Work Phone: SARS-CoV-2 & FLU Ant igen (Rapid) Dr. Jocelin Saunders Work Phone: SARS-CoV-2 & FLU Ant igen (Rapid) Dr. Jocelin Saunders Work Phone: Kayela Marysvale APPLE SORTER Kayela Marysvale APPLE SORTER Kayela Russlel APPLE SORTER Víctor Stoneham VACUUM CASTER Víctor Imck VACUUM CASTER Plan of Treatment Date Care Activity Detail Author Start: 12-21-2029 Tetanus vaccination TETANUS [facility] Start: 07-27-2025 End: 07-27-2025 Patient encounter procedure [facility] Start: 07-19-2025 Procedure [facility] Start: 07-19-2025 Serum inorganic phosphate measurement [facility] Start: 05-11-2025 Non-patient / Non-visit Non-patient / Non-visit -[facility] Start: 05-11-2025 Radionuclide imaging of perfusion of myocardium under exercise stress [facility] Start: 05-11-2025 End: 05-11-2025 Patient encounter procedure [facility] Work Phone: Start: 04-16-2025 Hepatic function panel [facility] Start: 04-16-2025 Radionuclide imaging of perfusion of myocardium under exercise stress [facility] Start: 04-16-2025 Thyroid stimulating hormone measurement [facility] Start: 04-16-2025 Thyroxine measurement [facility] Start: 07-28-2024 End: 07-28-2025 BCR/ABL BLOOD OR BONE MARROW,T(9;22),QUANT [facility] Comment on above: Expected: 07/28/2024, Expires: 6 Start: 07-28-2024 End: 07-28-2024 Patient encounter procedure 07/28/2024 2:00 PM EST Office Visit [facility] [address] [place] [id number] Katelyn Lawton MD [address] [place] [address] [facility] Start: 03-22-2024 COVID-19 VACCINE ( season) COVID-19 VACCINE ( season) [facility] Start: 03-22-2024 Influenza vaccination INFLUENZA VACCINE (#1) [facility] Start: 10-23-2023 Procedure [facility] Start: 07-30-2023 End: 07-30-2024 MR Lumbar spine WO and W contrast IV MRI SPINE LUMBAR WITH AND WITHOUT CONTRAST Imaging STAT Lumbar radiculopathy Expected: 07/30/2023, Expires: 07/30/2024 [facility] Comment on above: Expected: 07/30/2023, Expires: Start: 04-03-2023 Procedure [facility] Work Phone: Start: 04-03-2023 Provider Instructions for Treatment [facility] Work Phone: Start: 03-22-2023 COVID-19 VACCINE ( season) COVID-19 VACCINE () [facility] Start: 03-22-2023 Influenza vaccination INFLUENZA VACCINE (#1) [facility] Start: 01-30-2023 Procedure Education [facility] [...] Plain chest X-ray Chest PA and Lateral [facility] Start: 08-16-2022 [facility] Start: 08-08-2022 Procedure [facility] Start: 06-28-2022 Procedure Education [facility] [...] Work Phone: Start: 06-04-2022 Vital signs measurements [facility] Start: 06-04-2022 Chemotherapy care management [facility] Start: 06-03-2022 End: 06-03-2022 Blood culture [facility] Work Phone: Start: 06-03-2022 Chemotherapy care management [facility] Start: 06-03-2022 [facility] Start: 03-05-2022 Procedure Education [facility]; [facility] Work Phone: Start: 03-05-2022 Provider Instructions for Treatment [facility]; [facility] Work Phone: Start: 03-05-2022 Assay of thyroid stimulating hormone tsh TSH (87647) [facility]; [facility] Work Phone: Start: 03-05-2022 Urnls dip stick/tablet reagent auto microscopy URINALYSIS, W/ MICRO (23159) [facility]; [facility] Work Phone: Start: 03-05-2022 Urine albumin quantitative MICROALBUMIN: CREATININE RATIO (15524) AND (76292) [facility]; [facility] Work Phone: Start: 03-05-2022 Comprehensive metabolic panel METABOLIC PANEL, COMPREHENSIVE (35185) [facility]; [facility] Work Phone: Start: 03-05-2022 Lipid panel LIPID PANEL (88818) [facility]; [facility] Work Phone: Start: 03-05-2022 Blood count complete auto&auto difrntl wbc CBC W/AUTO DIFF WBC (30609) [facility]; [facility] Work [...] 12-21-2020 Hepatitis c antibody HEPATITIS C ANTIBODY (27133) [facility]; [facility] Work Phone: Start: 12-21-2020 Assay of prostate specific antigen total PSA (PROSTATE SPECIFIC ANTIGEN) (V76.44) [facility]; [facility] Work Phone: Start: 12-21-2020 Lipoprotein blood kaylie numbers & subclasses NMR Profile (03756) [facility]; [facility] Work Phone: Start: 12-21-2020 Assay of thyroid stimulating hormone tsh TSH (56962) [facility]; [facility] Work Phone: Start: 12-21-2020 Urnls dip stick/tablet reagent auto microscopy URINALYSIS, W/ MICRO (38298) [facility]; [facility] Work Phone: Start: 12-21-2020 Urine albumin quantitative MICROALBUMIN: CREATININE RATIO (78154) AND (34322) [facility]; [facility] Work Phone: Start: 2020 RSV VACCINE (1 - 1-dose 60+ series) RSV VACCINE (1 - 1-dose 60+ series) [facility] Start: 2020 RSV VACCINE (1 - Risk 60-74 years 1-dose series) RSV VACCINE (1 - Risk 60-74 years 1-dose series) [facility] Start: 05-02-2020 Procedure Education [facility] Work Phone: Start: 05-02-2020 Provider Instructions for Treatment [facility] Work Phone: Start: 05-02-2020 HbA1c (Bld) [Mass fraction] HGB A1C (13780) [facility] Work Phone: Start: 05-02-2020 Hemoglobin glycosylated a1c [facility] Work Phone: Start: 04-25-2020 Procedure Education [facility] Work Phone: Start: 04-25-2020 Provider Instructions for Treatment [facility] Work Phone: Start: 04-25-2020 TSH Qn TSH (02904) [facility] Work Phone: Start: 04-25-2020 Urnls dip stick/tablet reagent auto microscopy URINALYSIS, W/ MICRO (94763) [facility] Work Phone: Start: 04-25-2020 Urine albumin quantitative MICROALBUMIN: CREATININE RATIO (61999) AND (73145) [facility] Work Phone: Start: 04-25-2020 Comprehensive metabolic panel METABOLIC PANEL, COMPREHENSIVE (48492) [facility] Work Phone: Start: 04-25-2020 Blood count complete auto&auto difrntl wbc CBC W/AUTO DIFF WBC (11742) [facility] Work Phone: Start: 04-25-2020 Lipoprotein blood kaylie numbers & subclasses NMR Profile (20433) [facility] Work Phone: Start: 02-22-2020 Blood count smear mcrscp w/mnl difrntl wbc count [facility] Work Phone: Start: 02-05-2020 Blood count complete automated [facility] Work Phone: Start: 02-05-2020 CBC, PLATELETS & MANUAL DIFF (21483) [facility] Work Phone: Start: 02-05-2020 Blood smear peripheral interp phys w/writ report [facility] Work Phone: Start: 02-01-2020 Procedure Education [facility] Work Phone: Start: 02-01-2020 Provider Instructions for Treatment [facility] Work Phone: Start: 02-01-2020 CRP [Mass/Vol] C-REACTIVE PROTEIN (75618) [facility] Work Phone: Start: 02-01-2020 Sedimentation rate rbc non-automated ESR-F (SED RATE ERYTHROCYTE - MALE) (77484) [facility] Work Phone: Start: 02-01-2020 Blood count complete auto&auto difrntl wbc CBC W/AUTO DIFF WBC (89625) [facility] Work Phone: Start: 01-11-2020 Lipoprotein blood kaylie numbers & subclasses [facility] Work Phone: Comment on above: do in late in mar 2020 Start: 01-11-2020 Blood count complete auto&auto difrntl wbc CBC W/AUTO DIFF WBC (70525) [facility] Work Phone: Comment on [...] blood kaylie numbers & subclasses NMR Profile (91617) [facility] Work Phone: Start: 04-13-2019 Urnls dip stick/tablet reagent auto microscopy URINALYSIS, W/ MICRO (99626) [facility] Work Phone: Start: 04-13-2019 Urine albumin quantitative MICROALBUMIN: CREATININE RATIO (00227) AND (17523) [facility] Work Phone: Start: 04-13-2019 Comprehensive metabolic panel METABOLIC PANEL, COMPREHENSIVE (24200) [facility] Work Phone: Start: 04-13-2019 Blood count manual cell count each CBC with auto diff (36912) [facility] Work Phone: Start: 01-12-2019 [...] identified Respiratory culture Nom (Sput) Sputum Culture (83015) [facility] Work Phone: Start: 09-11-2018 Procedure Education [facility] Work Phone: Start: 09-11-2018 Provider Instructions for Treatment [facility] Work Phone: Start: 08-26-2018 Procedure Education [facility] Work Phone: Start: 08-26-2018 Provider Instructions for Treatment [facility] Work Phone: Start: 08-26-2018 Protein [Mass/Vol] LIPOPROTEIN, BLD, BY NMR (86904) [facility] Work Phone: Start: 08-26-2018 25 hydroxy includes fractions if performed CALCIFIDIOL (96065) VIT D 25 [facility] Work Phone: Start: 08-26-2018 Cobalamin (Vitamin B12) [Mass/Vol] VITAMIN B-12 (CYANOCOBALAMIN) (35438) [facility] Work Phone: Start: 08-26-2018 Sedimentation rate rbc non-automated SED RATE ERYTHROCYTE (89685) [facility] Work Phone: Start: 08-26-2018 Comprehensive metabolic panel METABOLIC PANEL, COMPREHENSIVE (85495) [facility] Work Phone: Start: 08-26-2018 Blood count complete automated CBC (AUTO) (13977) [facility] Work Phone: Start: 08-26-2018 Troponin I.cardiac [Mass/Vol] Troponin I (05546) [facility] Work Phone: Start: 08-26-2018 TSH Qn TSH (77127) [facility] Work Phone: Start: 08-26-2018 Free T4 [Mass/Vol] T4, FREE (THYROXINE) (28141) [facility] Work Phone: Start: 08-26-2018 Free T3 [Mass/Vol] T3, FREE (TRIDOTHYRONINE) (49220) [facility] Work Phone: Start: 2015 Prostate specific antigen measurement PROSTATE CANCER SCREENING DISCUSSION [facility] Start: 2010 Prostate specific antigen measurement PROSTATE CANCER SCREENING DISCUSSION [facility] Start: 2010 Screening for malignant neoplasm of lung LUNG CANCER SCREENING [facility] Start: 2005 Screening for malignant neoplasm of colon COLORECTAL CANCER SCREENING DISCUSSION [facility] Start: 2000 Lipid panel LIPID SCREENING [facility] Start: 1979 Pneumococcal vaccination PNEUMOCOCCAL VACCINE SERIES (1 of 2 - PCV) [facility] Start: 1979 Zoster vaccine hzv live for subcutaneous use ZOSTER (SHINGLES) VACCINE (1 of 2) [facility] Start: 1975 HIV screening HIV SCREENING DISCUSSION [facility] Start: 1966 PNEUMOCOCCAL VACCINE SERIES (1 - PCV) PNEUMOCOCCAL VACCINE SERIES (1 - PCV) [facility] Start: 1966 PNEUMOCOCCAL VACCINE SERIES (1 of 2 - PCV) PNEUMOCOCCAL VACCINE SERIES (1 of 2 - PCV) [facility] Start: 1960 Hepatitis C screening HEPATITIS C VIRUS SCREENING [facility] Anaerobic Culture Anaerobic Culture [facility] Work Phone: Bacteria identified in Blood by Culture Blood Culture [facility] Work Phone: Bacteria identified in Body fluid by Culture [facility] Work Phone: Bacteria identified in Unspecified specimen by Anaerobe culture [facility] Work Phone: End: 07-25-2024 BCR/ABL BLOOD OR BONE MARROW,T(9;22),QUANT BCR/ABL BLOOD OR BONE MARROW,T(9;22),QUANT Lab Routine CML (chronic myeloid leukemia) q3m for 99 Occurrences starting 07/25/2023 until 07/25/2024, 1 completed [facility] Comment on above: q3m for 99 Occurrences starting 07/25/19 24 until 07/25/2024, 1 completed BCR/ABL, BLOOD OR MALLORY NE MARROW, FINAL BCR/ABL, BLOOD OR BONE MARROW, FINAL Lab Routine CML (chronic myeloid leukemia) 07/30/2023 1:52 PM EST [facility] Blood culture [facility] Work Phone: Body Fluid Culture Body Fluid Culture [facility] Work Phone: CBC W Auto Different ial panel - Blood [facility] Work Phone: CBC W Auto Different ial panel - Blood [facility] CBC W Auto Different ial panel - Blood [facility] CBC W Auto Different ial panel - Blood [facility] CBC W Auto Different ial panel - Blood [facility] CBC W Auto Different ial panel - Blood [facility] CBC W Auto Different ial panel - Blood [facility] CBC W Auto Different ial panel - Blood [facility] CBC W Auto Different ial panel - [facility] End: 07-25-2024 Complete blood count with white cell differential, automated CBC, EDIF, PLATELET Lab Routine CML (chronic myeloid leukemia) 12 Occurrences starting 07/25/2023 until 07/25/2024, 1 completed [facility] Work Phone: Comment on above: 12 Occurrences starting 07/25/2023 until 07/25/2024, 1 completed End: 07-25-2024 Comprehensive metabolic 2000 panel - Serum or Plasma COMPREHENSIVE METABOLIC PANEL Lab Routine CML (chronic myeloid leukemia) 12 Occurrences starting 07/25/2023 until 07/25/2024, 1 completed [facility] Comment on above: 12 Occurrences starting 07/25/2023 until 07/25/2024, 1 completed [facility] 1999 panel - Serum or Plasma [facility] Comprehensive metabo lic 1999 panel - Serum or Plasma [facility] Comprehensive metabo lic 1999 panel - Serum or Plasma [facility] CT Chest [facility] Cytology report of B john fluid Cyto stain [facility] Work Phone: Electrocardiographic procedure [facility] Hemoglobin A1c/Hemoglobin.total in Blood [facility] Lipid 1996 panel - S radha or Plasma [facility] Magnesium [Mass/volu me] in Serum or Plasma [facility] Magnesium [Mass/volu me] in Serum or Plasma [facility] Magnesium measurement [facility] Magnesium measurement [facility] Patient Education [facility] Work Phone: Patient referral [facility] Work Phone: Procedure [facility] Work Phone: Procedure [facility] Procedure [facility] Procedure [facility] Procedure [facility] Radionuclide imaging of perfusion of myocardium under exercise stress [facility] Reticulocyte count [facility] Serum inorganic phos phate measurement [facility] XR Chest PA and Lateral [facility] Work Phone: [facility] [...] Internal Medicine; [facility] Work Phone: [facility] Work Phone: [facility] Work Phone: [facility] Immunizations Immunization Date Immunization Notes Care Provider Taz gilbert 04-25-2022 influenza virus vaccine, unspecified formulation Katelyn Lawton MD Work Phone: [facility] 05-31-2021 influenza, seasonal, injectable Jocelin Saunders DO Work Phone: [facility] Work Phone: 05-26-2021 COVID-Pfizer (10 MCG/0.2 ML) Joceiln Saunders DO Work Phone: [facility]; [facility] Work Phone: 05-23-2021 influenza, injectabl e, quadrivalent, preservative free Dr. Jocelin Saunders Work Phone: [facility] 05-23-2021 influenza, seasonal, injectable Dr. Jocelin Saunders Work Phone: [facility] 10-20-2020 COVID-19 (Pfizer) Jocelin osullivan DO Work Phone: [facility]; [facility] Work Phone: 09-19-2020 COVID-19 (Pfizer) Jocelin Escobedo earpatricia DO Work Phone: [facility]; [facility] Work Phone: 12-22-2019 tetanus toxoid, adsorbed Jocelin Saunders [facility] Work Phone: 04-09-2019 influenza, seasonal, injectable Jocelin Saunders [facility] Work Phone: Comment on above: at pharmacy 08-25-2018 influenza, injectabl e, quadrivalent, preservative free Dr. Jocelin Saunders Work Phone: [facility] 08-25-2018 influenza, seasonal, injectable Dr. Jocelin Saunders Work Phone: [facility] [facility] 05[facility]2018 influenza, seasonal, injectable Jocelin Saunders [facility] Work Phone: Payers Date Payer Category Payer Medicare MEDICARE HUMANA HMO PPO MEDICARE HUMANA HMO PPO [id number] 2021-Present [address] [address] [place] [address] [id number] 2021 Medicare (Managed Care) MEDICARE HUMANA HMO PPO [id number] 2020 Self-pay [id number] 2020 Unknown [id number] 2020 Medicare [id number] 1960 Unknown [id number]. 902 1960 Unknown [id number] .[id number]. 716 1960 Unknown [id number] .[id number]. 594 Medicare MEDICARE PART A B [id number] Unknown Unknown [id number] Unknown [id number] .1.355162.3.579.2. 462 Unknown [id number] .1.710298.3.579.2. 462 Unknown [id number] 2.16.840.1.681807.3.579.2. 462 Unknown [id number] 2.16.840.1.139117.3.579.2. 462 Unknown [id number] 2.16.840.1.734124.3.579.2. 462 Unknown [id number] 2.16.840.1.692123.3.579.2. 462 Unknown [id number] 2.16.840.1.599048.3.579.2. 462 Unknown [id number] 2.16.840.1.677729.3.579.2. 462 Unknown [id number] 2.16.840.1.235868.3.579.2. 462 Unknown [id number] 2.16.840.1.008899.3.579.2. 462 Unknown [id number] 2.16.840.1.174758.3.579.2. 462 Unknown [id number] 2.16.840.1.236903.3.579.2. 462 Unknown [id number] 2.16.840.1.127508.3.579.2. 462 Social History Date Type Detail Facility Alcohol Use: Moderate alcohol use. Compre [facility] Internal Medicine Work Phone: Comment on above: 1-2 a week Start: 07-10-2022 End: 07-28-2024 Caffeine Use [facility] Work Phone: Comment on above: [...] Medicine Work Phone: Living Situation: Living Situation: [facility] ehensive Internal Medicine; [facility] Work Phone: Pets/Animals: Pets/Animals: [facility]; [facility] Work Phone: Start: 06-03-2022 End: 06-26-2023 Tobacco smoking status NHIS Unknown if ever smoked [facility] Start: 08-25-2020 Cigarettes [facility] Start: 1960 Sex Assigned At Male [facility] Start: 07-10-2022 End: 12-23-2023 Tobacco smoking status NHIS Smokes tobacco daily [facility] History of tobacco use Cigarette Smoker [facility] Start: 07-10-2022 Tobacco use and exposure Smokeless tobacco non-user [facility] Start: 07-23-2022 End: 08-06-2023 Alcohol intake Lifetime non-drinker (finding) [facility] Start: 07-23-2022 End: 07-28-2024 Tobacco use panel [facility] Adolescent depressio n screening assessment 2 [facility] Start: 1960 Sex Assigned At Not on file [facility] Start: 07-21-2024 Gender identity Identifies as male gender (finding) [facility] Start: 07-21-2024 Sexual orientation Heterosexual (fin ding) [facility] Start: 07-04-2022 Sex Male (finding) [facility] Medical Equipment Procedure Code Equipment Code Equipment Original Text Equipment Identifier Dates Migue fundoplication CLIP,HEMOL OCK MED WECK FDA Start: 10-15-2018 Migue fundoplication CLIP,HEMOL OCK MED RoomishCK FDA Start: 10-15-2018 Migue fundoplication PATCH,RIVERA TID [...] component of a physician's clinical assessment. Test(s) 666983-FTH-Z ; 969306-ZPX-V; 375579-Tldkxslkmpefs; 669464-Boeyibjteql, Total; 540018-YCK-E (Total); 838458-Tjcdy LDL-P; 102608-SIJ Size; 297377-KU-FY Scorewas developed and its performance characteristics determinedby [employer]. It has not been cleared or approved by the Foodand Drug Administration.PATIENT WAS FASTINGPERFORMED BY: [facility] [address] [id number] BY: [facility]per [id number] [facility] [id number] 04-26-2020 LP-IR Score 71 [facility] Work Phone: Comment on above: INSULIN RESISTANCE [...] component of a physician's clinical assessment. Test(s) 592522-DHP-C ; 449242-ZVO-I; 007862-Xiduppuesbflq; 245824-Iakjkbqsoqb, Total; 634772-AYI-X (Total); 673541-Ntpzc LDL-P; 684789-GXD Size; 942108-TB-PT Scorewas developed and its performance characteristics determinedby [employer]. It has not been cleared or approved by the Foodand Drug Administration.PATIENT WAS FASTINGPERFORMED BY: [employer] [address] [id number] BY: Piper [id number] [facility] [id number] 12-24-2019 LP-IR Score 69 [facility] Work Phone: Comment on above: INSULIN RESISTANCE [...] component of a physician's clinical assessment. Test(s) 460250-OGS-V ; 013249-VMM-K; 352777-AWS-Z; 237336-Srnspghygekfn; 112154-Evtrgbkaovw, Total; 257754-TJQ-F (Total);441019-Ajeno LDL-P; 811737-KSW Size; 300742-KN-QQ Scorewas developed and its performance characteristics determinedby [employer]. It has not been cleared or approved by the Foodand Drug Administration.PATIENT WAS FASTINGPERFORMED BY: [facility] [address] [id number] BY: PublicBeta70 [facility] [id number] 04-13-2019 LP-IR Score 62 [facility] Work Phone: Comment on above: INSULIN RESISTANCE [...] component of a physician's clinical assessment. Test(s) 912127-KSI-N ; 028572-AAW-T; 898009-SAP-E; 741122-Baevmscrdwcsz; 693974-Hkeimpfeuvy, Total; 105869-XLA-O (Total);298336-Hgcmh LDL-P; 523872-HHV Size; 176363-US-GW Scorewas developed and its performance characteristics determinedby [employer]. It has not been cleared or approved by the Foodand Drug Administration.PATIENT WAS FASTINGPERFORMED BY: [employer] [address] [id number] BY: Piper [id number] [facility] [id number] 08-26-2018 LP-IR Score 66 [facility] Work Phone: Comment on above: INSULIN RESISTANCE [...] PATIENT NOT FASTINGP ERFORMED BY: BN [facility] [id number] [facility] [id number] BY: CB [facility] [id number] [facility] [id number] Mental Status Date Assessment Result Facility 06-04-2022 Cognitive function Level Of Cons ciousness Awake;Alert;Appropriate;Follow s Commands [facility] Work Phone: 06-03-2022 Cognitive function Level Of Cons ciousness Awake;Alert;Appropriate;Follow s [facility] Work Phone: Clinical Notes 01-20-2017 to 05-06-2025 Note Date & Type Note Facility 05-06-2025 Progress note [facility] 04-16-2025 Progress note [facility] 02-04-2025 Evaluation note Diagnosis Onset Date Resolution [...] myeloid leukemia chronic May 06, 2025 10:46am [facility] Work Phone: 1(507) 656-759206-17-2025 Evaluation note* Diagnosis Onset Date Resolution Status [...] 20, 2017 resolved April 16, 2025 8:41am [facility] Work Phone: 1(540) 426-423204-17-2025 Evaluation note* Diagnosis Onset Date Resolution Status [...] myeloid leukemia chronic February 04, 2025 11:18am [facility] Work Phone: 1(778) 957-209704-03-2025 Evaluation note* Diagnosis Onset Date Resolution Status Admit Date Encounter for education acute A pril 2024 11:00am Near syncope acute October 22 11:00am Chronic myeloid leukemia chronic October 22, 2024 11:00am Chronic myeloid leukemia chronic November 05, 2024 11:20am 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 Patient appreciative of information. [facility]03-19-2025 Miscellaneous Notes* Telephone Encounter - Maxine [...] of information. [facility] History of Present illness Narrative* Alem Maynard, TRAINING TECHNICIAN-SHEETER OPERATOR - 07/28/2024 2:00 PM EST OUTPATIENT [...] Maynard CNP documented in this encounterC[facility] Instructions* Patient Instructions* Nafisa Andrews RN [...] Auto 1.58 0.83 - 3.57 K/uL Abs [place] Auto 0.74 0.24 - 0.93 K/uL Abs Eos Auto 0.37 0.00 - 0.48 K/uL Abs Baso Auto 0.08 0.00 - 0.09 K/uL documented in this [facility]01-09-2024 History of Present illness Narrative* Steven Miller RN - 07/30/2023 2:00 PM EST Chronic back pain worse in the last few months. Feet feel asleep a lot of the time. 5:43 PM called patient to provide central scheduling number to schedule mri [phone]. no answer, left voice mail with information. [...] Documented by Ros Pozo, for Dr. Katelyn Latwon on 07/30/2023 at 2:46 PM. Katelyn Lawton MD, MSCR intermodal customer service Division of Hematology documented in this [facility] Instructions* Patient Instructions* Steven Miller RN [...] Auto 1.62 0.83 - 3.57 K/uL Abs [place] Auto 0.73 0.24 - 0.93 K/uL Abs Eos Auto 0.37 0.00 - 0.48 K/uL Abs Baso Auto 0.06 0.00 - 0.09 K/uL [facility]2018 Microscopic observation Gram stain Nom (Sput)Gram Stain Evaluation GSACC (Normal)Comments:This specimen is of good quality and is acceptable for routinebacterial culture. [facility]; [facility] Work Phone: comment on above:This specimen is of good quality and is acceptable for routinebacterial culture.PATIENT NOT FASTINGPERFORMED BY: [facility] Uamohh2093 [facility]binsCarol[facility] [id number] Information: SRC:[id number] Evaluation note* Diagnosis Onset Date Resolution Status Chronic myeloid leukemia chr onic Essential (primary) hypertension chronic History of coronary artery stent placement January 20 017 resolved Encounter for education acut e Near syncope acute Chronic myeloid leukemia chr onic Chronic myeloid leukemia [facility] Work Phone: Evaluation note* Diagnosis Onset Date Resolution Status Chronic myeloid leukemia chr onic Chronic myeloid leukemia chr onic Nicotine dependence, cigarettes, uncomplicated acute 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 acute SOB (shortness of breath) ac craig Chronic myeloid leukemia chr onic Encounter for education acut e Chronic myeloid leukemia chr onic Chronic myeloid leukemia chr onic Encounter for education acut e Near syncope acute Chronic myeloid leukemia [facility] Work Phone: Evaluation note* Diagnosis Onset Date Resolution Status Chronic myeloid leukemia chr onic Chronic myeloid leukemia chr onic Nicotine dependence, cigarettes, uncomplicated acute 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 acute SOB (shortness of breath) ac craig Chronic myeloid leukemia chr onic Encounter for education acut e Chronic myeloid leukemia chr onic Chronic myeloid leukemia chr onic Encounter for education acut e Near syncope acute Chronic myeloid leukemia chr 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 Nicotine dependence, cigarettes, uncomplicated acute 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 [facility] Work Phone: Evaluation note* Diagnosis Onset Date Resolution Status Chronic myeloid leukemia chr onic Chronic myeloid leukemia chr onic Nicotine dependence, cigarettes, uncomplicated acute 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 acute SOB (shortness of breath) ac craig Chronic myeloid leukemia chr onic Encounter for education acut e Chronic myeloid leukemia chr onic Chronic myeloid leukemia chr 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 Nicotine dependence, cigarettes, uncomplicated acute 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 acute Chronic myeloid leukemia chr onic Encounter for education acut e Near syncope acute Chronic myeloid leukemia chr [facility] Work Phone: Evaluation note* Diagnosis Onset Date Resolution Status Chronic myeloid leukemia chr onic Chronic myeloid leukemia chr onic Nicotine dependence, cigarettes, uncomplicated acute 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 acute SOB (shortness of breath) ac craig Chronic myeloid leukemia chr onic Encounter for education acut e Chronic myeloid leukemia chr onic Chronic myeloid leukemia chr 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 Nicotine dependence, cigarettes, uncomplicated acute 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 acute Chronic myeloid leukemia chr onic Chronic myeloid leukemia chr onic 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, right education instructor fernanda Chronic myeloid leukemia chr onic Encounter for education acut e Near syncope acute Chronic myeloid leukemia chr onic [facility] Work Phone: Evaluation note* Diagnosis Onset Date Resolution Status Bilateral pleural effusion c hronic Chronic myeloid leukemia chr onic Nicotine dependence, cigarettes, uncomplicated acute 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 acute SOB (shortness of breath) ac craig Bilateral pleural effusion c hronic Chronic myeloid [...] myeloid leukemia chr onic 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, right education instructor fernanda Bilateral pleural effusion c hronic Chronic myeloid leukemia chr onic Chronic myeloid leukemia chr onic 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, right education instructor fernanda Chronic myeloid leukemia chr onic 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, right education instructor fernanda Encounter for education acut e Near syncope acute Chronic myeloid leukemia chr onic Chronic myeloid leukemia chr onic Essential (primary) hypertension chronic History of coronary artery stent placement January 20 017 resolved [facility] Work Phone: Evaluation note* Diagnosis Onset Date Resolution Status Bilateral pleural effusion c hronic Chronic myeloid leukemia chr onic Nicotine dependence, cigarettes, uncomplicated acute 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 acute SOB (shortness of breath) ac craig Bilateral pleural effusion c hronic Chronic myeloid [...] myeloid leukemia chr onic 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, right education instructor fernanda Bilateral pleural effusion c hronic Chronic myeloid leukemia chr onic Chronic myeloid leukemia chr onic 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, right education instructor fernanda Chronic myeloid leukemia chr onic 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, right education instructor fernanda Chronic myeloid leukemia chr onic Essential (primary) hypertension chronic History of coronary artery stent placement January 20 resolved Chronic myeloid leukemia chr onic 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, right education instructor fernanda Encounter for education acut e Near syncope acute Chronic myeloid leukemia chr onic Mixed obstructive and restri ctive ventilatory defect acute Nicotine dependence, cigarettes, uncomplicated acute Bilateral pleural effusion c hronic [facility] Work Phone: Evaluation note* Diagnosis Onset Date Resolution Status Encounter for education acut e Near syncope acute Chronic myeloid leukemia chr onic Chronic myeloid leukemia chr onic Essential (primary) hypertension chronic History of coronary artery stent placement January 20 resolved Chronic myeloid leukemia chr onic [facility] Work Phone: Evaluation note* Diagnosis Acute midline low back pain with bilateral sciatica [facility] Diagnosis CML (chronic myeloid leukemia)- Primary Chronic myeloid leukemia, without mention of having achieved remission Acute midline low back pain with bilateral sciatica Lumbar radiculopathy Thoracic or lumbosacral neuritis or radiculitis, unspecified [facility] Diagnosis Onset Date Resolution Status Chronic myeloid leukemia chr onic Encounter for education acut e Near syncope acute Chronic myeloid leukemia chr onic [facility] Work Phone: Evaluation note* Diagnosis CML (chronic myeloid leukemia)- Primary Chronic myeloid leukemia, without mention of having achieved remission [facility] Additional Instructions May also consider using topical pain reliever such as Biofreeze, Bengay, Sportscreme, IcyHot, etc. to your left flank/side.[facility] Work Phone: Instructions* Name Dates Details [...] Informa tion Online using Patient Portal and [employer] Apps Indication:BMI 32.0-32.9,adult Start:27-Sep-2022 Instruction [...] Work Phone: progress note Author Hector Hsu [facility] Note Date/Time April 16, 2025 9:02am [facility] [address] [place] [address] OFFICE VISIT Date of Service: 04/16/25 MR#: [id number] Acct: [id number] Name: FREDERIC OVALLES Rep #: [id number] : 1960 Provider: Dr. Margaret Hsu MD Age/Sex: 64/M Location: [facility] [place] Status: Signed HPI HPI History of Present [...] air Intake Visit Reasons: 1 Y FU Promotions Assistant Sales Marketing Required: No Accompanied by: Self Is patient [...] Nicotine dependence Atherosclerosis of coronary artery of [place] heart without angina pectoris Obesity (BMI 30.0-34.9) [...] use well-balanced diet: about half the time uyen/uatsdin: Druze seatbelt use: always do you feel safe [...] Today I25.10 - Atherosclerotic heart disease of [place] coronary artery without angina pectoris Plan Details 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 Jocelin Saunders, DO ~ [facility] Work Phone: Progress note Author Sawyer Delgado [facility] Note Date/Time May 06, 2025 1 1:15am [facility] [place] [address] OFFICE VISIT Date of Service: 05/06/25 1054 MR#: [id number] Acct: [id number] Name: FREDERIC OVALLES Rep #: [id number] : 1960 From: Sawyer mcmahan MD Age/Sex: 64/M Location: [facility] [place] Status: Signed HPI Subjective Date of [...] and megakaryocytes. 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 Bosutinib August 10, 2022-ongoing MMR (January 2023) [facility] Medical History Chronic myeloid leukemia Low back [...] Nicotine dependence Atherosclerosis of coronary artery of [place] heart without angina pectoris Obesity (BMI 30.0-34.9) [...] use well-balanced diet: about half the time uyen/uatsdin: Druze seatbelt use: always do you feel safe [...] no focal motor deficits Coordination / Balance: ujupuv-yh-tdls test normal Speech: speech normal Gait (Neuro): [...] impression and plan discussed. Sawyer Delgado MD Pony Ride Attendant, [facility] Divisions of Medical Oncology & Hematology Department of Internal Medicine [place] [phone] This note was generated using a voice [...] Cosigner Signature: Date (if applicable) CC: ~ [facility] Work Phone: Reason for referral (narrative)No reason for referral information availableBlVencor Hospital Work Phone: Summary Purpose Family History [...] Records Found Name Dates Details Immunization Registry [place] - Effective on 08/26/2018. Expiration date unspecified Effective:26-Aug-2018 Name Dates Details Immunization Registry [place] - Effective on 08/26/2018. Expiration date unspecified Effective:26-Aug-2018 Name Dates Details Immunization Registry [place] - Effective on 08/26/2018. Expiration date unspecified Effective:26-Aug-2018 Name Dates Details Immunization Registry [place] - Effective on 08/26/2018. Expiration date unspecified Effective:26-Aug-2018 Name Dates Details Immunization Registry [place] - Effective on 08/26/2018. Expiration date unspecified Effective:26-Aug-2018 Name Dates Details Immunization Registry [place] - Effective on 08/26/2018. Expiration date unspecified Effective:26-Aug-2018 Name Dates Details Immunization Registry [place] - Effective on 08/26/2018. Expiration date unspecified Effective:26-Aug-2018 Name Dates Details Immunization Registry [place] - Effective on 08/26/2018. Expiration date unspecified Effective:26-Aug-2018 Name Dates Details Immunization Registry [place] - Effective on 04/13/2019. Expiration date unspecified Effective:13-Apr-2019 Name Dates Details Immunization Registry [place] - Effective on 04/13/2019. Expiration date unspecified Effective:13-Apr-2019 Name Dates Details Immunization Registry [place] - Effective on 04/13/2019. Expiration date unspecified Effective:13-Apr-2019 Name Dates Details Immunization Registry [place] - Effective on 04/13/2019. Expiration date unspecified Effective:13-Apr-2019 Name Dates Details Immunization Registry [place] - Effective on 04/13/2019. Expiration date unspecified Effective:13-Apr-2019 Name Dates Details Immunization Registry [place] - Effective on 04/13/2019. Expiration date unspecified Effective:13-Apr-2019 Name Dates Details Immunization Registry [place] - Effective on 04/13/2019. Expiration date unspecified Effective:13-Apr-2019 Name Dates Details Immunization Registry [place] - Effective on 04/13/2019. Expiration date unspecified Effective:13-Apr-2019 Name Dates Details Immunization Registry [place] - Effective on 04/13/2019. Expiration date unspecified Effective:13-Apr-2019 Name Dates Details Immunization Registry [place] - Effective on 04/13/2019. Expiration date unspecified Effective:13-Apr-2019 Name Dates Details Immunization Registry [place] - Effective on 04/13/2019. Expiration date unspecified Effective:13-Apr-2019 Name Dates Details Immunization Registry [place] - Effective on 08/26/2018. Expiration date unspecified Effective:26-Aug-2018 Name Dates Details Immunization Registry [place] - Effective on 04/13/2019. Expiration date unspecified Effective:13-Apr-2019 Name Dates Details Immunization Registry [place] - Effective on 04/13/2019. Expiration date unspecified Effective:13-Apr-2019 Name Dates Details Immunization Registry [place] - Effective on 08/26/2018. Expiration date unspecified Effective:26-Aug-2018 Name Dates Details Immunization Registry [place] - Effective on 08/26/2018. Expiration date unspecified Effective:26-Aug-2018 Name Dates Details Immunization Registry [place] - Effective on 08/26/2018. Expiration date unspecified Effective:26-Aug-2018 Name Dates Details Immunization Registry [place] - Effective on 04/13/2019. Expiration date unspecified Effective:13-Apr-2019 Name Dates Details Immunization Registry [place] - Effective on 04/13/2019. Expiration date unspecified Effective:13-Apr-2019 Name Dates Details Immunization Registry [place] - Effective on 04/13/2019. Expiration date unspecified Effective:13-Apr-2019 Name Dates Details Immunization Registry [place] - Effective on 04/13/2019. Expiration date unspecified Effective:13-Apr-2019 Name Dates Details Immunization Registry [place] - Effective on 04/13/2019. Expiration date unspecified Effective:13-Apr-2019 Name Dates Details Immunization Registry [place] - Effective on 04/13/2019. Expiration date unspecified Effective:13-Apr-2019 Name Dates Details Immunization Registry [place] - Effective on 04/13/2019. Expiration date unspecified Effective:13-Apr-2019 Name Dates Details Immunization Registry [place] - Effective on 04/13/2019. Expiration date unspecified Effective:13-Apr-2019 Advance Directive Response Recorded Date/ Time Living Will No June 03 8:01am Power of Residential Program Worker No June 03, 2022 8:01am Advance Directive Response Recorded Date/ Time Living Will No June 04 10:18am Power of Residential Program Worker No June 04, 2022 10:18am Name Dates Details Immunization Registry [place] - Effective on 04/13/2019. Expiration date unspecified Effective:13-Apr-2019 Name Dates Details Immunization Registry [place] - Effective on 04/13/2019. Expiration date unspecified Effective:13-Apr-2019 Name Dates Details Immunization Registry [place] - Effective on 04/13/2019. Expiration date unspecified Effective:13-Apr-2019 Name Dates Details Immunization Registry [place] - Effective on 04/13/2019. Expiration date unspecified Effective:13-Apr-2019 Name Dates Details Immunization Registry [place] - Effective on 04/13/2019. Expiration date unspecified Effective:13-Apr-2019 Advance Directive Response Recorded Date/ Time Living Will No June 04 11:18am Power of Residential Program Worker No June 04, 2022 11:18am Name Dates Details Immunization Registry [place] - Effective on 04/13/2019. Expiration date unspecified Effective:13-Apr-2019 Name Dates Details Immunization Registry [place] - Effective on 04/13/2019. Expiration date unspecified [...] PRIOR - BCR/ABL NEEDS TO BE BACK LONGTERM MEDS Reason for Visit Chronic myeloid leuk [...] PRIOR - BCR/ABL NEEDS TO BE BACK CHAIR MECHANIC MEDS 6 week follow up Reason for [...] Chief Complaint LLQ pain, cough sob S/P [facility] ER 3WKS - LABS/CXR PRIOR - BCR/ABL NEEDS TO BE BACK WATER ON LUNGS SOB Shortness of breath F/U AFTER [facility] - NO LABS THERAPUETIC DRUG MONITORING EKG SOB Shortness of breath CHEMO ED 1WK LABS TOX CHECK CHAIR MECHANIC MEDS ROUTINE 6 week follow up 1WK [...] Chief Complaint LLQ pain, cough sob S/P [facility] ER 3WKS - LABS/CXR PRIOR - BCR/ABL NEEDS TO BE BACK WATER ON LUNGS SOB Shortness of breath F/U AFTER [facility] - NO LABS THERAPUETIC DRUG MONITORING EKG SOB Shortness of breath CHEMO ED 1WK LABS TOX CHECK CHAIR MECHANIC MEDS ROUTINE 6 week follow up 1WK [...] breath CHEMO ED 1WK LABS TOX CHECK CHAIR MECHANIC MEDS ROUTINE 6 week follow up 1WK LABS TOX CHECK Encounter for therapeutic drug level monitoring THERAPUTIC DRUG LEVEL 1WK LABS TOX CHECK REVIEW EKG Amb Documentation 1WK LABS TOX CHECK 2 WKS - LABS LONGTERM MEDICATION USE LONGTERM MEDICATION USE 2 WKS - LABS 3 [...] breath CHEMO ED 1WK LABS TOX CHECK CHAIR MECHANIC MEDS ROUTINE 6 week follow up 1WK LABS TOX CHECK Encounter for therapeutic drug level monitoring THERAPUTIC DRUG LEVEL 1WK LABS TOX CHECK REVIEW EKG Amb Documentation 1WK LABS TOX CHECK 2 WKS - LABS CHAIR MECHANIC MEDICATION USE CHAIR MECHANIC MEDICATION USE 2 WKS - LABS 6 [...] April 16, 2025 8:41am Essential (primary) hypertension [facility] 2024 8:41am History of coronary artery stent [...] April 16, 2025 8:41am Essential (primary) hypertension [facility] 2024 8:41am History of coronary artery stent placeme April 16, 2025 8:41am Encounter for education April 26 8:30am Near syncope April 26, 2025 8: 30am Chronic myeloid leukemia April 26 8:30am Chronic myeloid leukemia May 06, 025 10:46am Reason for Referral Specialty Diagnoses / Procedures Referred By Emy [email or web address] Referred To Contact Diagnoses Lumbar radiculopathy Procedures MRI SPINE LUMBAR WITH AND WITHOUT CONTRAST NE MRI, LUMBAR SPINE COMBO Katelyn Lawton MD [address] [facility] [address] [place] [address] Referral ID Status Reason Start Date Expiration Date V isits Requested Visits Authorized [id number] New Request 07/30/2023 08/23/2024 1 1 Additional Source Comments (unrecognized sect ion and content) No Status Records FoundNo Status Records FoundNo Status Records FoundNo Status Records FoundNo Status Records FoundNo Status Records FoundNo Status Records Found INFORMATION SOURCE (unrecogn ized section and content) DATE CREATED AUTHOR 08/05/2018 [facility] DATE CREATED AUTHOR AUTHOR'S ORGANIZ ATION 12/22/2019 [facility] DATE CREATED AUTHOR AUTHOR'S ORGANIZ ATION 08/14/2021 [facility] DATE CREATED AUTHOR AUTHOR'S ORGANIZ ATION 06/09/2022 [facility] DATE CREATED AUTHOR AUTHOR'S ORGANIZ ATION 09/28/2022 [facility] DATE CREATED AUTHOR AUTHOR'S ORGANIZ ATION 10/10/2024 [facility] DATE CREATED AUTHOR AUTHOR'S ORGANIZ ATION 06/03/2025 [facility] Goals (unrecognized section and content) Goals [...] Provider, Referr ing Provider Active Savi Rodriguez RESP THERAPIST, RESP THERAPIST-C Attending Provider Active Team Status: Active Member [...] , DO Primary Care Provider Active Dr. Herems Kent MD Attending Provider, Emergency Provider Active [...] ing Provider Active Karin De La Rosa RESP THERAPIST, RESP THERAPIST-C Attending Provider Active Team Status: Active Member [...] Provider, Referr ing Provider Active Dr. Sawyer Delgdao MD Attending Provider Active Savi Rodriguez RESP THERAPIST, RESP THERAPIST-C Other Provider Active Team Status: Inactive Member Role Status Dates Dr. Jocelin Saunders , DO Primary Care Provider Active Karin De La Rosa RESP THERAPIST, RESP THERAPIST-C Attending Provider, Referrin g Provider Active Brand Sales Consultant Relationship Specialty Start Date End Date Jocelin Saunders DO [address] [place] [phone] PCP - General Internal Medicine 07/10/22 Katelyn Lawton MD [address] [place] [phone] [employer] Hematology 07/04/22 Sawyer Delgado [facility] [address] [place] [address] [id number] Oncologist Hematology 07/05/22 Lamar De Oliveira, RUBÉN Registered Nurse 07/05/22 Brand Sales Consultant Relationship Specialty Start Date End Date Jocelin Saunders DO [address] [place] [phone] PCP - General Internal Medicine 07/10/22 Katelyn Lawton MD [address] [place] [address] [employer] Hematology 07/04/22 Sawyer Delgado [facility] [address] [place] [address] Oncologist Hematology 07/05/22 Lamar De Oliveira, RN Registered Nurse 07/05/22 Team Status: Inactive Member Role Status Dates Dr. Jocelin Saunders , Primary Care Pr ovider, Attending Provider, Referring Provider Active Brand Sales Consultant Relationship Specialty Start Date End Date Jocelin Saunders DO [facility] [facility] [address] [place] [phone] PCP - General Internal Medicine 07/10/22 Katelyn Lawton MD [address] [place] [phone] [employer] Hematology 07/04/22 Sawyer Delgado [facility] [address] [place] [address] Oncologist Hematology 07/05/22 Lamar De Oliveira, RN Registered Nurse 07/05/22 Brand Sales Consultant Relationship Specialty Start Date End Date Jocelin Saunders DO [address] [facility] [address] [place] [phone] PCP - General Internal Medicine 07/10/22 Katelyn Lawton MD [address] [place] [phone] [employer] Hematology 07/04/22 Sawyer Delgado [facility] [address] [place] [address] Oncologist Hematology 07/05/22 Lamar De Oliveira, RN [...] Start: October 22, 2024 Savi Rodriguez NP, RESP THERAPIST-C Other Provider Active St art: October 22, [...] Status: Active Member Role/Relationship Status Dates Dr. Jocelni Saunders DO Primary Care Provider Active Start: January 21, 2025 Dr. Jocelin Saunders DO Referring Provider Active Start: January 21, 2025 Dr. Sawyer Delgado MD Attending Provider Active Start: January 21, 2025 Savi Rodriguez NP, RESP THERAPIST-C Other Provider Active St art: January 21, 2025 Team Status: Inactive Member Role/Relationship Status Dates Dr. Jocelin Saunders DO Primary Care Provider Active Start: February 04, 2025 End: February 04, 2025 Dr. Jocelin Saunders DO Referring Provider Active Start: February 04, 2025 End: February 04, 2025 Savi Rodriguez NP, RESP THERAPIST-C Attending Provider Active Start: February 04, 2025 [...] Start: January 21, 2025 Savi Rodriguez NP, RESP THERAPIST-C Nurse Practitioner Active Start: January 21, 2025 Team Status: Inactive Member Role/Relationship Status Dates Dr. Jocelin Saunders DO Primary care physician Active Start: February 04, 2025 End: February 04, 2025 Dr. Jocelin Puja , DO Referring Provider Active Start: February 04, 2025 End: February 04, 2025 Savi Rodriguez RESP THERAPIST, RESP THERAPIST-C Attending physician Active Start: February 04, 2025 [...] 2025 End: February 04, 2025 Savi Rodriguez RESP THERAPIST, RESP THERAPIST-C Attending physician Active Start: February 04, 2025 [...] Active Start: April 26, 2025 Savi Rodriguez RESP THERAPIST, RESP THERAPIST-C Nurse Practitioner Active Start: April 26, 2025 [...] BE BASED ON THE PRIMARY CLINICAL RECORDS. [employer] provides no warranty or guarantee of the accuracy or completeness of information in this document.
--- NOTE | 2025-06-18 09:27 | POSTOPAN2_ITS ---
Anesthesia Postop Eval I Sum Postop Eval Completion status Anesthesia document: Postop Eval 1 completed: Yes Anesthesia Postop Eval I Summary Anesthesia Postop Eval I Summary: Anesthesia Postop Eval I: Assessment Summary Airway patent Yes 06/18/25 08:24 [email or web address] Spontaneous unlabored Yes 06/18/25 08:24 PERINATAL [email or web address] respirations Mental status Awake,Calm 06/18/25 08:24 [email or web address] nausea No 06/18/25 08:24 PERINATAL [email or web address] Vomiting No 06/18/25 08:24 [email or web address] Anesthesia Postop Eval I: Fluid Summary Crystalloid volume administer 500 06/18/25 08:24 [email or web address] (ml) Colloids volume administered ( ml) Blood Product volume administered (ml) Total IV fluid infused 500 06/18/25 08:24 [email or web address] Anesthesia Postop Eval I: Summary Notes Anesthesia Complication No 06/18/25 08:24 [email or web address] Anesthesia Complication Comment: Post-operative progress note Anesthesia: Postop Eval II Evaluation Mental status: Awake and Calm Pain Level: 3 nausea: No Vomiting: No
--- NOTE | 2025-06-18 09:27 | PCM.POSTANE2 ---
Anesthesia Postop Eval I Sum Postop Eval Completion status Anesthesia document: Postop Eval 1 completed: Yes Anesthesia Postop Eval I Summary Anesthesia Postop Eval I Summary: Anesthesia Postop Eval I: Assessment Summary Airway patent Yes 06/18/25 08:24 REHABILITATION [email or web address] Spontaneous unlabored Yes 06/18/25 08:24 REHABILITATION [email or web address] respirations Mental status Awake,Calm 06/18/25 08:24 REHABILITATION [email or web address] nausea No 06/18/25 08:24 REHABILITATION [email or web address] Vomiting No 06/18/25 08:24 REHABILITATION [email or web address] Anesthesia Postop Eval I: Fluid Summary Crystalloid volume administer 500 06/18/25 08:24 REHABILITATION [email or web address] (ml) Colloids volume administered ( ml) Blood Product volume administered (ml) Total IV fluid infused 500 06/18/25 08:24 REHABILITATION [email or web address] Anesthesia Postop Eval I: Summary Notes Anesthesia Complication No 06/18/25 08:24 REHABILITATION [email or web address] Anesthesia Complication Comment: Post-operative progress note Anesthesia: Postop Eval II Evaluation Mental status: Awake and Calm Pain Level: 3 nausea: No Vomiting: No
[2025-06-18] MEDS: 0.9% Normal Saline (1000mL) 1,000 ML 125 ML IV ×2 (10:16→17:27)
[2025-06-18] MEDS: 0.9% Saline Lock 10 ML Syringe IV (12:31)
[2025-06-18] MEDS: Cefazolin 1 GM/50 ML BAG IV ×2 (15:07→23:48)
[2025-06-19 01:53] VITALS: BP 120/68; PULSE 58; RESP 15; TEMP 36.8; O2SAT 95
[2025-06-19] MEDS: 0.9% Normal Saline (1000mL) 1,000 ML 125 ML IV (01:55)
[2025-06-19 07:49] VITALS: BP 150/86; PULSE 55; RESP 16; TEMP 36.7; O2SAT 97
--- NOTE | 2025-06-19 09:43 | CASEMGMT ---
RUBÉN COTTRELL in to complete ABARCA form with patient, at bedside. RN RONIT explained ABARCA Form to patient, patient voiced understanding. Patient signed ABARCA form and filed in chart. Patient provided with copy of signed ABARCA form. Patient had no further question or concerns.
== END 2025-06-19 10:44 | disposition home or self-care (01) ==
LOC: SDC 08:37 → MS3 08:37
PROVIDERS: Admitting Provider Urology; PCP Nurse Practitioner Family; Referring Provider Urology; Visit Provider Urology
PROC: (CPT 52601; principal; 2025-06-18 07:20)
DX: N40.1 Benign prostatic hyperplasia with lower urinary tract symptoms (principal); J44.9 Chronic obstructive pulmonary disease, unspecified; N13.8 Other obstructive and reflux uropathy; R39.12 Poor urinary stream; R35.1 Nocturia; R39.14 Feeling of incomplete bladder emptying; Z79.899 Other long term (current) drug therapy; Z79.82 Long term (current) use of aspirin; R39.11 Hesitancy of micturition; I10 Essential (primary) hypertension; F17.210 Nicotine dependence, cigarettes, uncomplicated
CPT/HCPCS: 52601; 00914; 94668; 96361; 96365; 96375; 96376; 99221; 99406; A4216; G0378; J2405

== ENCOUNTER → 2025-07-19 | Outpatient (CLI) | payer MEDICARE, SELFPAY ==
--- NOTE | 2025-07-19 07:49 | US_ITS ---
PROCEDURE: THORACENTESIS W US 07/19/2025 REASON FOR EXAM: MODERATE RIGHT SIDED PLEURAL EFFUSION TECHNIQUE: THORACENTESIS W US COMPARISON: Chest CT of 05/26/2025. FINDINGS: Procedure: Following informed consent, an using standard sterile technique, a diagnostic and therapeutic right thoracentesis was performed under ultrasound guidance. 2% lidocaine local anesthesia was followed by placement of a 5 Romanian Yueh catheter into the right pleural fluid collection. A proximally 1260 mL cloudy yellow fluid was successfully removed, a portion sent to the laboratory for evaluation. No complication was encountered, in the patient left the department in good condition without significant complaint. US/Thoracentesis W US IMPRESSION: Successful therapeutic and diagnostic right ultrasound-guided thoracentesis. L aboratory results pending. Reading Location: [place] [address]
[2025-07-19 08:32] VITALS: BP 152/81; PULSE 61; RESP 16; TEMP 36.4; O2SAT 96
[2025-07-19 08:43] VITALS: BP 160/77; PULSE 60; RESP 16; O2SAT 95
[2025-07-19] MEDS: Lidocaine 2% (20 ml mdv) 20 ML Vial INFILT (08:43)
--- NOTE | 2025-07-19 08:44 | FLU_PTH ---
PATIENT: EDNA THOMAS LOC: [facility]#:[id number] AGE/SX: 65/M ROOM: RE07/19/[address]: SELVIN Zurita : 1960 BED: DIS: 07/19/2025 SPEC #: [id number] RECD: 07/19/25 10:42 STATUS: ANTONIO REJey #: [id number] ISAAC: 07/19/25 08:[address]: Loulou Gunter DEPT: CYTOLOGY RECD BY: Ninfa Gonzalez ENTERED: 07/19/25 10:47 SP TYPE: Fluid OTHR DR: SELVIN Gunter Tissues: Pleural fluid, NOS Procedures: Special Stain Group II Surgery Specimen Level IV Cytospin Fluid HEADER OPERATION: Ultrasound Guided Thoracentesis PRE-OP DIAGNOSIS: Right Pleural Effusion TISSUE SUBMITTED: Right Pleural Fluid DIAGNOSIS CYTOLOGY A. Right pleural effusion, thoracentesis (cytospin, cellblock): - Lymphocytosis. - Reactive mesothelial cells. CYTOLOGY STUDY Slides are reviewed. CYTOLOGY GROSS Received is 90 ml of yellow cloudy fluid labeled with the patient's name and and designated per the requisition as right pleural fluid. Submitted for cytology and cell block preparation. CPT: 03871,24943
[2025-07-19 08:45] VITALS: BP 151/80; PULSE 61; RESP 16; O2SAT 95
[2025-07-19 08:48] VITALS: BP 142/69; PULSE 59; RESP 16; O2SAT 94
[2025-07-19 08:52] VITALS: BP 148/73; PULSE 60; RESP 16; O2SAT 93
[2025-07-19 09:02] LABS: Cytology, Body Fluid / CSF SEE PATHOLOGY REPORT
[2025-07-19 09:39] LABS: Body Fluid Mononuclear WBC # 4.380 10^3/uL; Body Fluid Mononuclear WBC % 99.0 %; Body Fluid Polynuclear WBC # 0.048 10^3/uL; Body Fluid Polynuclear WBC % 1.0 %; White Blood Count/Body Fluid 4.428 10^3/uL
[2025-07-19 10:37] LABS: Appearance/Body Fluid CLOUDY; Auto B Fluid Analyzer BKGD Ct COUNTS W/IN LIMITS (W/IN LIMITS); Color/Body Fluid YELLOW; Source- Body Fluid THORACENTESIS
[2025-07-19 10:38] LABS: Red Cell Count/Body Fluid 33 /mm3
[2025-07-19 10:46] LABS: Body Fluid QC Type(s) BF1; Neutrophil (Segs) 3 %
[2025-07-19 12:37] LABS: Pathologist Comment/Body Fluid Reviewed
== END | disposition home or self-care (01) ==
PROVIDERS: PCP Nurse Practitioner Family; Referring Provider Nurse Practitioner Family; Visit Provider Nurse Practitioner Family
DX: J90 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, not elsewhere classified (principal); D72.820 Lymphocytosis (symptomatic)
CPT/HCPCS: 32555; 83615; 84157; 87070; 87075; 87205; 88108; 88305; 88313; 89050